=== PATIENT | female | born 1950 | race Caucasian/White ===

== ENCOUNTER 2019-09-09 12:27 | Inpatient (IN) | payer MEDICARE, MEDICAID, SELFPAY ==
[2019-09-09] VITALS (37 sets, daily range): BP systolic 80–162; BP diastolic 40–99; PULSE 113–154; RESP 17–34; TEMP 37.7–40.5; O2SAT 81–100; BMI 44.3
--- NOTE | 2019-09-09 | ECG_ITS ---
Measurements Intervals [place] Rate: 143 P: SC: 0 QRS: -19 QRSD: 82 T: 43 QT: 287 QTc: 443 Interpretive Statements ATRIAL FLUTTER/TACHYCARDIA WITH RAPID VENTRICULAR RESPONSE VOLTAGE CRITERIA FOR LVH BASELINE WANDER- V1-V2 ABNORMAL ECG Electronically Signed On 09-11-2019 7:07:42 CASINO FLOOR SUPERVISOR by Balaji Gomez D.O.
--- NOTE | ~2019-09-09 | XR_ITS ---
XR tibia fibula LT 2V 09/11/2019 16:02 Indication: Compound fracture. ORIF 06/28/2019 Procedure: 2 views left tibia/fibula Comparison: 11/03/2016 Findings: There is left total knee arthroplasty. Interval placement of a proximal tibial side plates medially and anteriorly transfixing a proximal tibial metadiaphyseal fracture, likely subacute. There are side plate and screws transfixing the left ankle as well. Osteopenia. No definite evidence for o steomyelitis. Mildly displaced oblique proximal fibular diaphyseal fracture. Impression: 1: Interval internal fixation of the proximal tibia with sideplate and screws. Comminuted subacute fr acture in anatomic alignment. 2: Mildly displaced oblique proximal fibular diaphyseal fracture. Possible nondisplaced fibular head fracture. Reviewed, dictated and finalized at location A. INING TECHNICIAN Impression: 1: Interval internal fixation of the proximal tibia with sideplate and screws. Comminuted subacute fracture in anatomic alignment. 2: Mildly displaced oblique proximal fibular diaphyseal fracture. Possible nond isplaced fibular head fracture.
--- NOTE | ~2019-09-09 | XR_ITS ---
EXAMINATION: XR chest 1V portable DATE: 09/10/2019 07:57 INDICATION: Pneumonia TECHNIQUE: frontal view of the chest was obtained. COMPARISON: Chest radiograph dated 09/09/2019 FINDINGS: Right internal jugular central venous catheter with distal tip at the superior cavoatrial junction. P ersistent airspace opacities in the left lower and bilateral upper lung zones. No pulmonary edema, pl eural effusion or pneumothorax. Cardiomegaly. Widening of the bilateral acromioclavicular joints whic h may be related to prior trauma or surgery. IMPRESSION: 1. Bilateral airspace opacities concerning for multifocal pneumonia. 2. Cardiomegaly. Reviewed, dictated and finalized at location A. ESSOR OF GEOGRAPHY
--- NOTE | ~2019-09-09 | XR_ITS ---
XR chest 1V portable DATE: 09/13/2019 05:53 INDICATION: Shortness of breath. Multifocal pneumonia. TECHNIQUE: Portable AP chest on 09/13/2019 at 0549 hours COMPARISON: 09/12/2019 portable AP chest at 0942 hours FINDINGS: Prominent patchy bilateral areas of consolidation throughout both lung zones, mildly increa sed since 09/12/2019, consistent with extensive bilateral pneumonia. Heart size appears normal. Aortic calcification. No pleural effusion is evident. No pneumothorax. Right internal jugular central venous catheter tip overlies superior cavoatrial junction. IMPRESSION: No significant change in extensive bilateral patchy consolidation since 09/12/2019 Reviewed, dictated and finalized at location A. GOODS INSPECTOR IMPRESSION: No significant change in extensive bilateral patchy consolidation s inez 09/12/2019
--- NOTE | ~2019-09-09 | XR_ITS ---
EXAMINATION: XR chest 1V portable DATE: 09/09/2019 14:05 INDICATION: Shortness of breath and fever TECHNIQUE: frontal view of the chest was obtained. COMPARISON: Chest radiograph dated 12/01/2016 FINDINGS: New regions of consolidation at the lateral left lower lung zone, medial right lung base and the bila teral suprahilar regions, more prominent on the right with more peripheral extension into the right u pper lobe concerning for multifocal pneumonia. No pleural effusion or pneumothorax. Cardiomegaly. IMPRESSION: 1. Bilateral airspace disease concerning for multifocal pneumonia. Reviewed, dictated and finalized at location A. RETE PLACEMENT EQUIPMENT OPERATOR
--- NOTE | ~2019-09-09 | XR_ITS ---
XR chest 1V portable 09/17/2019 05:41 Indication: Pneumonia. Dyspnea. Procedure: 2 view chest Comparison: Comparison to multiple prior studies sequentially, with oldest reviewed study dated 09/13. Findings: There is persistent diffuse bilateral airspace disease. Right IJ central line tip in the SV C. No pleural effusion or pneumothorax. No acute osseous abnormality. Impression: 1: No significant change to diffuse bilateral airspace disease which may reflect pneumonia or edema. Reviewed, dictated and finalized at location A. ERCIAL DRONE SOFTWARE DEVELOPER Impression: 1: No significant change to diffuse bilateral airspace disease which may reflec t pneumonia or edema.
--- NOTE | ~2019-09-09 | XR_ITS ---
EXAMINATION: XR chest 1V portable DATE: 09/14/2019 06:04 INDICATION: Multifocal pneumonia. TECHNIQUE: A single frontal view of the chest was obtained. COMPARISON: Chest single view 09/13/2019, CT abdomen and pelvis 10/31/2016 FINDINGS: There are patchy airspace opacities in all lung zones bilaterally. No pleural effusion or p neumothorax. The heart size is normal. A right internal jugular central venous catheter is seen with tip at the superior cavoatrial junction. IMPRESSION: 1. Diffuse lung disease with worsening on the right, consistent with pulmonary edema versus pneumonia . Reviewed, dictated and finalized at location A. PING TRACK SUPERVISOR IMPRESSION: 1. Diffuse lung disease with worsening on the right, consistent with pulmonary edema versus pneumonia.
--- NOTE | ~2019-09-09 | XR_ITS ---
EXAMINATION: XR chest 1V portable DATE: 09/11/2019 06:02 INDICATION: Pneumonia TECHNIQUE: frontal view of the chest was obtained. COMPARISON: Chest radiograph dated 09/10/2019 FINDINGS: Right internal jugular central venous catheter with distal tip at the superior cavoatrial junction. Persistent airspace consolidation in the bilateral upper and left lower lung zones and right hilar re gion. More subtle streaky and patchy airspace opacities in the left mid and right lower lung zones. N o pleural effusion or pneumothorax. Cardiomegaly. IMPRESSION: 1. Minimal change in bilateral airspace disease consistent with multifocal pneumonia. 2. Cardiomegaly. Reviewed, dictated and finalized at location A. CASE ASSEMBLER IMPRESSION: 1. Minimal change in bilateral airspace disease consistent with multifocal pneu monia. 2. Cardiomegaly.
--- NOTE | ~2019-09-09 | US_ITS ---
EXAMINATION: US venous doppler LE EXAM DATE: 09/12/2019 11:51 INDICATION: Leg edema. Shortness of breath. TECHNIQUE: Multiple grayscale, color flow and Doppler images of the lower extremity deep venous syste ms bilaterally were obtained and reviewed. Comparison is made to prior examination from 12/02/2016. FINDINGS: Right side: The right common femoral, femoral and profunda veins demonstrate normal color flow, respi ratory variation, augmentation and compressibility. Compressibility, color flow confirmed within the right popliteal, posterior tibial, peroneal, and greater saphenous veins. Left side: The left common femoral, femoral and profunda veins demonstrate normal color flow, respira tory variation, augmentation and compressibility. Compressibility, color flow confirmed within the l eft popliteal, posterior tibial, peroneal, and greater saphenous veins. IMPRESSION: 1. No lower extremity deep venous thrombosis bilaterally. Reviewed, dictated and finalized at location A. VERY TRUCK DRIVER HEAVY
--- NOTE | ~2019-09-09 | XR_ITS ---
EXAMINATION: XR chest 1V portable DATE: 09/15/2019 05:57 INDICATION: Multifocal pneumonia. TECHNIQUE: A single frontal view of the chest was obtained. COMPARISON: Chest single view 09/14/2019, CT abdomen and pelvis 10/31/2016 FINDINGS: There are patchy airspace opacities throughout the lungs bilaterally. No pleural effusion o r pneumothorax. The heart size is normal. A right internal jugular central venous catheter is seen wi th tip at the superior cavoatrial junction. IMPRESSION: 1. Stable diffuse lung disease, consistent with pulmonary edema versus pneumonia. 2. Cardiomegaly. Reviewed, dictated and finalized at location A. OMER SUCCESS INTERN IMPRESSION: 1. Stable diffuse lung disease, consistent with pulmonary edema versus pneumoni a. 2. Cardiomegaly.
--- NOTE | ~2019-09-09 | XR_ITS ---
EXAMINATION: XR chest 1V portable DATE: 09/12/2019 09:44 INDICATION: Shortness of breath TECHNIQUE: frontal view of the chest was obtained. COMPARISON: Chest radiograph dated 09/11/2019 FINDINGS: Interval increase in patchy airspace opacities now at the upper, middle and lower lung zones on both the left and right consistent with worsening multifocal pneumonia. No pneumothorax or definitive pleu ral effusion. Cardiomegaly. Right internal jugular central venous catheter with distal tip near the s uperior cavoatrial junction. IMPRESSION: 1. Increasing now relatively diffuse bilateral patchy lung disease consistent with worsening multifoc al pneumonia. Reviewed, dictated and finalized at location A. RITY ADMINISTRATOR IMPRESSION: 1. Increasing now relatively diffuse bilateral patchy lung disease consistent w ith worsening multifocal pneumonia.
--- NOTE | ~2019-09-09 | XR_ITS ---
EXAMINATION: XR chest port-a-cath/central INDICATION: Central line placement TECHNIQUE: Portable AP chest at 1527 hours COMPARISON: 1358 hours FINDINGS: A right internal jugular catheter has been inserted which ends with its tip in the proximal right atrium. Bilateral airspace opacities are unchanged. There is no pneumothorax or pleural effusi on. Stable cardiomegaly is noted. IMPRESSION: 1. Right internal jugular catheter insertion without pneumothorax. 2. Multifocal airspace opacities of the lungs, likely pneumonia. Reviewed, dictated and finalized at location A. E STREAM MANAGER
--- NOTE | ~2019-09-09 | XR_ITS ---
EXAMINATION: XR chest 1V portable INDICATION: Multifocal pneumonia TECHNIQUE: Portable AP chest at 0519 hours COMPARISON: 09/15/2019 FINDINGS: A right internal jugular central venous catheter ends with its tip at the superior cavoatri al junction. Patchy bilateral airspace opacities persist with slight improvement in the right lower l julissa zone. There is unchanged mild elevation of the right hemidiaphragm. No pleural effusion or pneumo thorax is identified. The cardiomediastinal silhouette is stable. IMPRESSION: 1. Diffuse lung disease with slight improvement in the right lower lung zone, consistent with pulmona ry edema versus pneumonia. Reviewed, dictated and finalized at location A. GER SHIFT IMPRESSION: 1. Diffuse lung disease with slight improvement in the right lower lung zone, c onsistent with pulmonary edema versus pneumonia.
--- NOTE | 2019-09-09 12:28 | ED.AMS ---
HPI - Altered Mental Status General Chief Complaint: Shortness of Breath/Dyspnea Stated Complaint: SOB, Fever, AMS Time Seen by Provider: 09/09/19 12:28 Source: patient, EMS and RN notes reviewed Mode of arrival: EMS Limitations: clinical condition History of Present Illness HPI narrative: Pt is a 68 y/o female presenting to the ED via EMS c/o respiratory distress. EMS report the pt started having a fever last night at her [facility] residence. EMS states the pt's temp was 101.9 F en route to the ED and notes the pt started experiencing SOB earlier today as well. Per EMS, the pt was satting 92 on 15L and is normally on 2L of home oxygen. EMS also reports the pt is experiencing cough and pain with cough. EMS state the pt is oriented x2 and are unsure of her baseline. Pt presents with steri-strips on her LLE in which she states she had a surgery in September of last year. HPI is limited due to pt's clinical condition. Most information provided by EMS. Onset (ago): unknown (Earlier today) Associated symptoms: cough (per EMS), fever (of 101.9 F (per EMS)) and other (Pain with cough (per EMS)) Treatments prior to arrival: oxygen Related Data Allergies Allergy/AdvReac Type Severity Reaction Status Date / Time Fish Containing Products Allergy Severe Dyspnea / Verified 10/31/16 16:24 SOB iodine Allergy Unknown Verified 10/31/16 13:50 Contrast Media AdvReac Intermediate Hives / Uncoded 10/31/16 16:33 Red Face Review of Systems Review of Systems: Narrative: ROS is limited due to pt's clinical condition. All systems reviewed & are unremarkable except as noted in HPI and below Constitutional: Constitutional: Reports fever(s) (of 101.9 F (per EMS)) Respiratory: Respiratory: Reports cough (Per EMS), Reports pain with cough (Per EMS) and Reports dyspnea PMFSH Past Medical History Medical History Anemia Ankle fracture, right Anxiety Asthma Depression Diverticulitis Epilepsy Gastroparesis GERD (gastroesophageal reflux disease) History of bipolar disorder History of home oxygen therapy 2L HLD (hyperlipidemia) HTN (hypertension) Meningoencephalitis Viral SANTI (obstructive sleep apnea) Seasonal allergies Shingles UTI (urinary tract infection) Surgical History Surgical History H/O: hysterectomy History of knee replacement History of tonsillectomy S/P appy Social History Social History Smoking status: Unknown if ever smoked Gender identity (if verbalized by the patient): Female Exam Const: General: alert, acute distress (Moderate) and ill appearing Nutritional Appearance: well nourished Other: Elderly HENMT: Mouth: Yes lip normal and Yes dry mucous membranes Eyes: Conjunctivae: conjunctivae normal Resp: Effort & Inspection: tachypneic Auscultation: wheezes (Diffuse) Cardio: Rate: tachycardic Rhythm: regular rhythm GI: Inspection: non-distended GI Palp: Yes Soft to palpation, Yes Tenderness to palpation present (GI) (Diffuse), No Guarding due to palpation present (GI) and No Rebound tenderness present Back/Spine/Pelvis: Other: Full ROM Skin: General skin exam: normal color Other: [id number]; Dry Neuro: General: moves all extremities Extrem: General: full ROM Psych: Mental Status: mental status grossly normal Course Consultations Consultation #1: Discussed case with Web Offset Press Feeder Dr. Sin. Accepted the pt for the ICU. Date: 09/09/19 Time: 15:43 Consultation #2: Discussed case with ALLERGY AND IMMUNOLOGY SPECIALIST Luh Sosa. Accepted the pt for admission. Date: 09/09/19 Time: 16:00 Vital Signs Vital signs: Vital Signs Temperature 40 C H 09/09/19 12:29 Pulse Rate 154 H 09/09/19 12:29 Respiratory Rate 32 H 09/09/19 12:29 Blood Pressure 111/99 H 09/09/19 12:29 Pulse Oximetry 81 L 09/09/19 12:29 Temperature 38.8 C H 09/09/19 15:57 Pulse Rate 117 H 09/09/19 16:3
--- NOTE | 2019-09-09 12:41 | ECG_ITS ---
Measurements Intervals [place] Rate: 152 P: 40 LA: 116 QRS: -20 QRSD: 89 T: 91 QT: 271 QTc: 432 Interpretive Statements SINUS TACHYCARDIA WITH SHORT LA INTERVAL LEFT VENTRICULAR HYPERTROPHY AND ST-T CHANGE MINIMAL Q WAVES- LATERAL LEADS BASELINE WANDER- I, II, AVR ABNORMAL ECG Electronically Signed On 09-09-2019 18:42:41 PULL OVER by Balaji Gomez D.O.
[2019-09-09] MEDS: SODIUM CHLORIDE 0.9% IV 1,000 ML 999 ML IV CONT ×4 (12:55→22:52)
--- NOTE | 2019-09-09 12:58 | PC.NURSE ---
SPOKE WITH CA ROWAN ABOUT PT TEMP OF 104, STATES THAT HE WANTS A STAT DOSE OF 1G OFIRMEV IVP.
[2019-09-09 12:59] LABS: Basophils Percent Auto 0.3 % (0.2-1.2); Hematocrit 31.2 % (37.0-47.0); Immature Granulocyte Percent A 0.9 % (0-0.5); Lymphocytes Absolute Auto 2.03 K/mm3 (0.9-3.2); Lymphocytes Percent Auto 18.8 % (18.3-44.2); Mean Corpuscular HGB Conc 32.1 g/dl (32-36); Mean Corpuscular Hemoglobin 26.3 pg (26-34); Mean Corpuscular Volume 82.1 fl (80-100); Mean Platelet Volume 10.4 fl (7.4-10.4); Monocytes Absolute Auto 1.6 K/mm3 (0.1-0.6); Monocytes Percent Auto 15.2 % (2.6-8.5); Neutrophils Percent Auto 64.8 % (45.5-73.1); Platelet Count Result 240 k/mm3 (150-375); Red Cell Distribution Width 15.9 % (11.5-14.5); White Blood Count 10.8 K/mm3 (4.5-10.0)
[2019-09-09 13:02] LABS: Alveolar/Arterial O2 Gradient 551.8 mmHg; Base Excess ABG -0.8 mEq/l (+/-2.0); Carboxyhemoglobin 0.3 % THb (0-2.0); Fractional Inspired Oxygen 100 %; HCO3 ABG 22.2 mEq/l (22.0-26.0); Methemoglobin ABG 0.3 %THb (0-1.5); Oxygen Content ABG 14.5 %vol (16.0-22.0); Oxygen Saturation ABG 98.8 % (95.0-100.0); Oxyhemoglobin 97.5 % THb (90.0-100.0); PCO2 ABG 30.8 mmHg (35.0-45.0); PO2 ABG 130.4 mmHg (80.0-100.0); Reduced Hemoglobin 1.9 %THb (0-5.0); Total Hemoglobin 10.4 g/dL (12.0-18.0); pH ABG 7.475 (7.350-7.450)
[2019-09-09 13:04] LABS: Device NON-REBREATHER MASK; Modified Allen's Test Pass; Site Drawn RIGHT RADIAL
[2019-09-09] MEDS: IPRATROPIUM BR 0.02% INH SOLN 0.5 MG/2.5 ML VIAL INHALATION ×2 (13:05→20:12)
[2019-09-09] MEDS: ALBUTEROL SULFATE NEB 2.5 MG/0.5 ML INH 5 MG INHALATION ×2 (13:05→20:13)
[2019-09-09 13:07] LABS: Lactic Acid Reflex 2.9 mmol/L (0.7-2.1)
[2019-09-09 13:09] LABS: INR 1.3; Prothrombin Time 15.8 Seconds (11.1-14.7)
[2019-09-09 13:10] LABS: Partial Thromboplastin Time 39.6 SECONDS (22.3-36.8)
[2019-09-09 13:12] LABS: Alanine Aminotransferase 28 U/L (4-35); Albumin Level 3.7 g/dL (3.5-5.1); Alkaline Phosphatase 95 U/L (38-126); Aspartate Amino Transferase 36 U/L (14-36); Bilirubin,Total 0.6 mg/dL (0.2-1.3); Blood Urea Nitrogen 15 mg/dL (7-17); Calcium 8.3 mg/dL (8.4-10.2); Carbon Dioxide 23 mmol/L (22-30); Chloride 81 mmol/L (98-107); Estimated CRCL calculation 52 ml/min; Estimated Glomerular Filt Rate 50; Glucose 152 mg/dL (65-105); Potassium 4.2 mmol/L (3.4-5.0); Sodium 122 mmol/L (137-145)
--- NOTE | 2019-09-09 13:24 | PC.NURSE ---
SPOKE WITH CA ROWAN ABOUT POSSIBLE MANDEL TO ASSESS I'S AND O'S FOR SEPSIS GUIDELINES. CA STATES THAT HE DOES NOT WANT A MANDEL AT THIS TIME.
--- NOTE | 2019-09-09 13:34 | PC.NURSE ---
PT FOUND THAT RESPIRATORY LEFT PT ON 2L O2 AFTER NEB TREATMENT. PT SATURATION FOUND TO BE 83%. CA VALLE VERBAL ORDER AT THIS TIME TO PLACE PT BACK ON NOPN-REBREATHER.
[2019-09-09 13:42] LABS: Lipase < 10 U/L (23-300)
[2019-09-09 13:46] LABS: CRP 37.9 mg/dL (<1.0)
[2019-09-09 14:01] LABS: Add Urine Microscopic? YES; Appearance Urine Cloudy (Clear); Bacteria Urine Trace /hpf; Bilirubin Urine Negative (Negative); Blood Urine Negative (Negative); Color Urine Yellow (Yellow); Glucose Urine UA Negative (Negative); Ketones Urine Negative (Negative); Leukocyte Esterase Ur Negative LEU/UL (Negative); Mucus Urine Few /lpf; Nitrate Urine Negative (Negative); Protein Urine Negative (Negative); RBC Urine 0-2 /hpf (0-2); Specific Grav Ur 1.015 (1.001-1.035); Squamous Epithelial Cell Urine Few /hpf (Few); Urobilinogen Urine Negative mg/dL (<2.0); WBC Urine 0-3 /hpf
--- NOTE | 2019-09-09 14:30 | PC.NURSE ---
FLUIDS FINISHED, PT BP NOTED TO BE 80/50. CA ROWAN INFORMED, VERBAL ORDER TO START A 3RD LITER BOLUS OF NS STAT AND PREPARE PT FOR CENTRAL LINE. PT MOVED FROM ROOM 5 TO ROOM 7. CONSENT OBTAINED, PT ALERT AND ORIENTED AT THIS TIME.
--- NOTE | 2019-09-09 14:37 | PC.NURSE ---
ERP AT BEDSIDE TO INSERT CENTRAL LINE IN PT AT THIS TIME.
--- NOTE | 2019-09-09 15:24 | PC.NURSE ---
XRAY IN ROOM FOR CONFIRMATION SCAN OF CENTRAL LINE PLACEMENT BY CA ROWAN. PT TOLERATED PROCEDURE WELL.
[2019-09-09 15:53] LABS: Reflex Lactic Acid Yes or No Add Lactic
[2019-09-09 16:25] LABS: Lactic Acid 2.3 mmol/L (0.7-2.1)
[2019-09-09] MEDS: NOREPINEPHRINE 8 MG/D5W 250 ML 8 MG/250 ML BAG 9.4 MG IV CONT (16:36)
[2019-09-09] MEDS: METOPROLOL TARTRATE INJ 5 MG/5 ML VIAL IV PUSH (18:14)
[2019-09-09] MEDS: LACTATED RINGERS 1,000 ML 125 ML IV CONT (18:15)
--- NOTE | 2019-09-09 18:21 | PC.NURSE ---
Patient arrived from ER on 5 mcg Levophed at 1740, began to titrate, as bp was 140/96. At 1816 placed Levophed on hold, as blood pressure 148/100. Will continue to monitor closely.
--- NOTE | 2019-09-09 18:41 | PM.IMHP ---
H&P: HPI History of Present Illness Chief complaint: Septic Shock Narrative: Celestina Ewing is a 68 year old female Who has been recovering at [facility] with history of a right ankle fracture and a left tibia fracture repair. Patient has been there recovering since she had a fall. Initially the patient told me she has COPD and then retracted. The patient stated that she has been coughing all weekend that she had a fever all week. She said she has only been given Tylenol. Patient's fever went up to 104. Her fever was 101.9 and route to the emergency room. Patient started experiencing shortness of breath earlier today. Patient typically wears oxygen at 2 L per nasal cannula but had a bone but up the 15 L today and was only satting 92%. The patient does have sleep apnea but wears oxygen instead she cannot tolerate a CPAP machine. Patient has Steri-Strips the left lower extremity from her surgery. Patient's respirations have been in the 30s and heart rate in the 140s and 150s. On patient's arterial blood gases are pH was 7.475 and pCO2 was 30.8. PO2 was 130.4. Patient was started on a non-rebreather. She was given nebulizer treatments in the emergency room. She she was started on Rocephin a Zithromax. A central line was placed in the emergency room. X-ray was read as right internal jugular catheter insertion without pneumothorax. Multi focal airspace a paced sees the lungs likely pneumonia. Her white count was noted to be 10.8. Her sodium level was 122 Today and has been in in the lower 130s and 129 in the past. patient was given the normal saline bolus in the emergency room for sepsis and then changed to LR. Patient's blood pressure was then elevated when she came to the ICU and her Levophed drip had been stopped. Patient had to be given metoprolol IV for elevated heart rate and blood pressure. Her blood pressure dropped down momentarily to 120s. Patient is now afebrile and her heart rate up to 140s. Patient is so short of breath that she cannot talk in full sentences. I ordered a BiPAP and some Ativan for her because she is not able to tolerate a CPAP machine normally. I will repeat her ABGs in 1 hour to determine if she needs to be intubated. Patient is using accessory muscles to breathe at this time. We will determine if she needs to be intubated approximately 1 hour. Date of service is 09/09/2019 to the intensive care unit. Review of Systems Review of Systems: Narrative: It was very difficult to obtain information from the patient she had a non-rebreather mask on and she was having difficulty talking in full sentences due to her shortness of breath. Patient was getting somewhat confused as well. She has had fever and chills and cough. She tells me she has had a fever for 1 week. She tells me she is at the residential for rehab due to a right ankle fracture and a left tibia fracture that was repaired. All systems reviewed & are unremarkable except as noted in HPI and below Constitutional: Constitutional: Reports as per HPI and Reports no additional constitutional complaints Eyes: Eyes: Reports as per HPI and Reports no additional eye complaints ENT: Reports system reviewed and no additional complaints, except as documented and Reports Normal hearing present Cardiovascular: Cardiovascular: Reports no additional cardiovascular complaints Respiratory: Respiratory: Reports no additional respiratory complaints and Reports no additional respiratory complaints Comments: Short of breath and wheezing. Gastrointestinal: Gastrointestinal: Reports as per HPI and Reports no additional gastrointestinal complaints Musculoskeletal: Musculoskeletal: Reports no additional musculoskeletal complaints Integumentary/Breasts: Skin/Breast: Reports system reviewed and no additional complaints, except as docu and Reports as per HPI Neurologic: Reports system reviewed and no additional complaints, except as documented, Reports as per H
--- NOTE | 2019-09-09 19:33 | ADMGEN ---
This patient, Celestina Ewing, was admitted to Intensive Care Unit-6. Patient/family oriented to hospital policies and general routines including ID bracelet, bed and alarms, visiting hours, pain management, procedures, bathroom and other care routines, personal items, smoking policy, room service/diet, and visiting hours. Valuables list has been completed. Information on how to activate the Rapid Response Team has been discussed. Patient/Family are encouraged to report perceived risks to care and to ask questions if they do not understand what they are told or what they should do.
[2019-09-09] MEDS: LORAZEPAM INJ 2 MG/ML VIAL 0.5 MG IV PUSH (19:37)
[2019-09-09] MEDS: LABETALOL HCL INJ 100 MG/20 ML VIAL IV PUSH (19:38)
--- NOTE | 2019-09-09 19:59 | PCDIET ---
Call Dr. Sin [phone] to advise elevated heart rate 150, received order for Metoprolol 5 mg iv push, now. Will continue to monitor closely.
[2019-09-09 20:16] LABS: Blood Urea Nitrogen 13 mg/dL (7-17); Carbon Dioxide 21 mmol/L (22-30); Chloride 88 mmol/L (98-107); Estimated CRCL calculation 70 ml/min; Estimated Glomerular Filt Rate > 60; Glucose 120 mg/dL (65-105); Potassium 3.8 mmol/L (3.4-5.0); Sodium 122 mmol/L (137-145)
[2019-09-09 20:39] LABS: Lactic Acid Reflex 3.3 mmol/L (0.7-2.1)
[2019-09-09 21:04] LABS: Base Excess ABG -2.6 mEq/l (+/-2.0); Fractional Inspired Oxygen 50 %; HCO3 ABG 20.7 mEq/l (22.0-26.0); Oxygen Saturation ABG 94.6 % (95.0-100.0); Oxyhemoglobin 92.6 % THb (90.0-100.0); PCO2 ABG 30.6 mmHg (35.0-45.0); PO2 ABG 68.1 mmHg (80.0-100.0); PO2 FiO2 Ratio Arterial Blood 1.36 %; Total Hemoglobin 9.9 g/dL (12.0-18.0); pH ABG 7.448 (7.350-7.450)
[2019-09-09 21:05] LABS: Modified Allen's Test Pass; Site Drawn RIGHT RADIAL
[2019-09-09 21:06] LABS: Device NON-INVASIVE VENT; Non-Invasive Expiratory Pressure 8 CMH2O; Non-Invasive Inspiratory Pressure 14 CMH2O; Non-Invasive Vent Rate 12 /MIN
[2019-09-09] MEDS: IBUPROFEN IV 400 MG in SODIUM CHLORIDE 0.9% IV 100 ML 200 MG IVPB (21:21)
[2019-09-09] MEDS: DIGOXIN INJ 250 MCG/ML 2 ML AMP (*BKC) 125 MCG IV PUSH (21:53)
[2019-09-09] MEDS: FAMCICLOVIR 250 MG TABLET PO (22:56)
[2019-09-09] MEDS: GABAPENTIN 400 MG CAPSULE 800 MG PO (22:57)
[2019-09-09] MEDS: PRIMIDONE 50 MG TABLET PO (22:58)
[2019-09-09] MEDS: ATORVASTATIN 10 MG TABLET PO (22:59)
[2019-09-09] MEDS: PANTOPRAZOLE 40 MG TABLET PO (22:59)
[2019-09-09] MEDS: methylPREDNISolone SOD SUCC 125 MG VIAL 80 MG IV PUSH (23:00)
[2019-09-09] MEDS: METOPROLOL TARTRATE 25 MG TABLET PO (23:16)
[2019-09-10] VITALS (30 sets, daily range): BP systolic 109–164; BP diastolic 54–74; PULSE 87–156; RESP 14–27; TEMP 36.2–37.7; O2SAT 92–100
[2019-09-10] MEDS: ALBUTEROL SULFATE NEB 2.5 MG/0.5 ML INH 5 MG INHALATION ×4 (01:20→20:48)
[2019-09-10] MEDS: IPRATROPIUM BR 0.02% INH SOLN 0.5 MG/2.5 ML VIAL INHALATION ×4 (01:21→20:48)
[2019-09-10 01:46] LABS: Lactic Acid Reflex 3.2 mmol/L (0.7-2.1)
[2019-09-10] MEDS: SODIUM CHLORIDE 0.9% IV 500 ML 999 ML IV CONT ×2 (02:17→22:39)
[2019-09-10] MEDS: LACTATED RINGERS 1,000 ML 125 ML IV CONT (04:29)
[2019-09-10 04:30] LABS: Reflex Lactic Acid Yes or No Add Lactic
[2019-09-10 04:56] LABS: Basophils Percent Auto 0.3 % (0.2-1.2); Hematocrit 25.2 % (37.0-47.0); Hemoglobin 7.9 g/dL (12.0-15.0); Immature Granulocyte Absolute 0.07 K/mm3 (0.00-0.031); Immature Granulocyte Percent A 0.7 % (0-0.5); Immature Platelet Fraction Pct 4.2 % (0.9-11.2); Lymphocytes Absolute Auto 0.99 K/mm3 (0.9-3.2); Lymphocytes Percent Auto 10.5 % (18.3-44.2); Mean Corpuscular HGB Conc 31.3 g/dl (32-36); Mean Corpuscular Hemoglobin 26.4 pg (26-34); Mean Corpuscular Volume 84.3 fl (80-100); Mean Platelet Volume 9.9 fl (7.4-10.4); Monocytes Absolute Auto 1.3 K/mm3 (0.1-0.6); Monocytes Percent Auto 13.6 % (2.6-8.5); Neutrophils Percent Auto 74.9 % (45.5-73.1); Platelet Count Result 129 k/mm3 (150-375); Red Blood Count 2.99 M/mm3 (4.2-5.4); Red Cell Distribution Width 15.8 % (11.5-14.5); White Blood Count 9.4 K/mm3 (4.5-10.0)
[2019-09-10 05:13] LABS: Lactic Acid 3.5 mmol/L (0.7-2.1)
[2019-09-10 05:16] LABS: Alanine Aminotransferase 23 U/L (4-35); Albumin Level 2.7 g/dL (3.5-5.1); Alkaline Phosphatase 55 U/L (38-126); Aspartate Amino Transferase 28 U/L (14-36); Bilirubin,Total 0.3 mg/dL (0.2-1.3); Blood Urea Nitrogen 14 mg/dL (7-17); Calcium 6.9 mg/dL (8.4-10.2); Carbon Dioxide 19 mmol/L (22-30); Chloride 91 mmol/L (98-107); Estimated CRCL calculation 70 ml/min; Estimated Glomerular Filt Rate > 60; Glucose 147 mg/dL (65-105); Potassium 4.4 mmol/L (3.4-5.0); Sodium 123 mmol/L (137-145)
[2019-09-10] MEDS: methylPREDNISolone SOD SUCC 125 MG VIAL 80 MG IV PUSH (06:03)
[2019-09-10] MEDS: METOPROLOL TARTRATE 25 MG TABLET PO ×2 (06:04→21:38)
[2019-09-10 06:35] LABS: Thyroid Stimulating Hormone Reflex 0.756 uIU/mL (0.465-4.68)
[2019-09-10] MEDS: MAGNESIUM SULF 2 GM/WATER 50ML 2 GM/50 ML BAG IVPB ×2 (07:20→08:29)
--- NOTE | 2019-09-10 07:43 | PM.IMPN ---
Progress Note: A&P Assessment and Plan (1) Septic shock: Code(s): A41.9 - Sepsis, unspecified organism; R65.21 - Severe sepsis with septic shock Status: Acute Assessment and Plan: Criteria met on admission. Result of pneumonia. Blood pressure reviewed on 09/10/2019 and stable. Telemetry reviewed on 09/10/2019 with sinus rhythm. Blood cultures and MRSA culture pending. Will continue vancomycin, ceftriaxone, azithromycin. Continue IV fluids. Will continue to monitor closely. (2) Acute respiratory failure: Qualifiers: Respiratory failure complication: hypoxia Qualified Code(s): J96.01 - Acute respiratory failure with hypoxia Code(s): J96.00 - Acute respiratory failure, unspecified whether with hypoxia or hypercapnia Status: Acute Assessment and Plan: Result of pneumonia. Remains on BiPAP. Continue treatment of pneumonia. Continue nebulizer treatments and IV steroids. Will monitor closely. 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 Continue IV antibiotics as noted above. BiPAP as noted above. (4) Hypomagnesemia: Code(s): E83.42 - Hypomagnesemia Status: Acute Assessment and Plan: Magnesium 1.0 this morning with IV replacement already ordered. Will continue to monitor and replace as needed. (5) HTN (hypertension): Qualifiers: Hypertension type: essential hypertension Qualified Code(s): I10 - Essential (primary) hypertension Code(s): I10 - Essential (primary) hypertension Status: Chronic Assessment and Plan: Blood pressure reviewed on 09/10/2019 and currently stable. Hold all home medications. Will monitor. (6) Anemia: Qualifiers: Anemia type: unspecified type Qualified Code(s): D64.9 - Anemia, unspecified Code(s): D64.9 - Anemia, unspecified Status: Chronic Assessment and Plan: Hemoglobin did drop to 7.9 but may be related to dilution effect. No active sign of bleeding. Will monitor. (7) Chronic hyponatremia: Code(s): E87.1 - Hypo-osmolality and hyponatremia Status: Acute Assessment and Plan: Sodium low at 123 but stable. Will follow. (8) HLD (hyperlipidemia): Qualifiers: Hyperlipidemia type: unspecified Qualified Code(s): E78.5 - Hyperlipidemia, unspecified Code(s): E78.5 - Hyperlipidemia, unspecified Status: Chronic Assessment and Plan: Atorvastatin on hold. (9) Anxiety: Code(s): F41.9 - Anxiety disorder, unspecified Status: Chronic Assessment and Plan: Remains on BuSpar. IV lorazepam available as needed. (10) DVT prophylaxis: Code(s): Z29.9 - Encounter for prophylactic measures, unspecified Status: Acute Assessment and Plan: Lovenox. Subjective Date/time seen: 09/10/19 07:43 Interval history: Date of Service: 09/10/2019. Admitted with septic shock, pneumonia. Recent left tibia/left ankle fractures with repair at [place]. Patient on continuous BiPAP currently but awake and can answer simple yes/no questions. No shortness of breath. Does have chest pain/congestion. Also with abdominal pain, nausea. Slight headache. Review of Systems Review of Systems: Narrative: Limited due to continuous BiPAP. Constitutional: Constitutional: Reports fever(s) (up to 104.6 last night) Cardiovascular: Cardiovascular: Reports chest pain Respiratory: Respiratory: Reports chest congestion and Denies dyspnea Gastrointestinal: Gastrointestinal: Reports abdominal pain Genitourinary: Comments: catheter in place Musculoskeletal: Comments: recent fracture left tibia/left ankle Neurologic: Reports headache(s) (slight) Exam Narrative: Exam Narrative: Awake and alert Const: General: no acute distress H
[2019-09-10] MEDS: PRIMIDONE 50 MG TABLET PO ×2 (08:27→18:07)
[2019-09-10] MEDS: OLMESARTAN MEDOXOMIL 20 MG TABLET 40 MG PO (08:28)
[2019-09-10] MEDS: VITAMIN E 400 UNIT CAPSULE 800 UNIT PO (08:29)
[2019-09-10] MEDS: FAMCICLOVIR 250 MG TABLET PO ×2 (08:29→19:54)
--- NOTE | 2019-09-10 08:29 | WPDCNINT ---
Assessment and Plan Assessment and plan (1) Septic shock: Code(s): A41.9 - Sepsis, unspecified organism; R65.21 - Severe sepsis with septic shock Status: Acute Assessment and Plan: patient presented with fevers, cough, hypotensive, chest x-ray showed pneumonia - likely source - lungs - patient was hypotensive upon arrival to the ICU, given adequate IV fluids, was started on Levophed briefly which currently is off - blood pressures are stable at this time, urine output has been adequate - blood cultures have been obtained and results are pending - continue vancomycin, ceftriaxone and azithromycin for pneumonia (2) Acute respiratory failure: Qualifiers: Respiratory failure complication: hypoxia Qualified Code(s): J96.01 - Acute respiratory failure with hypoxia Code(s): J96.00 - Acute respiratory failure, unspecified whether with hypoxia or hypercapnia Status: Acute Assessment and Plan: acute respiratory failure likely related to pneumonia, shortness of breath with cough - obtain sputum cultures - continue antibiotics as above - continue BiPAP, settings were decreased to 12/8, 50% FiO2 - chest x-ray and ABGs reviewed (3) HCAP (healthcare-associated pneumonia): Code(s): J18.9 - Pneumonia, unspecified organism Status: Acute Assessment and Plan: antibiotics as above for pneumonia, sputum culture has been ordered (4) Hypomagnesemia: Code(s): E83.42 - Hypomagnesemia Status: Acute Assessment and Plan: will aggressively replace magnesium (5) HTN (hypertension): Qualifiers: Hypertension type: essential hypertension Qualified Code(s): I10 - Essential (primary) hypertension Code(s): I10 - Essential (primary) hypertension Status: Chronic Assessment and Plan: patient with history of essential hypertension on multiple home medications which currently are on hold since patient was in septic shock requiring Levophed briefly. - if blood pressures continue to rise will add IV medications (6) Anxiety: Code(s): F41.9 - Anxiety disorder, unspecified Status: Chronic Assessment and Plan: on lorazepam p.r.n. anxiety - continue BuSpar (7) History of seizure: Code(s): Z87.898 - Personal history of other specified conditions Status: Acute Assessment and Plan: continue primidone (8) DVT prophylaxis: Code(s): Z29.9 - Encounter for prophylactic measures, unspecified Status: Acute Assessment and Plan: enoxaparin SQ Additional Plan discussed with patient updated her with her condition and plan of care. I did tell her that she is on antibiotics, she that she is off the Levophed patient is a blood pressure support medications. Also updated her with the lab and radiology reports. Code status: Full code Critical care time spent: 39 minutes Due to a high probability of clinically significant, life threatening deterioration, the patient required my highest level of preparedness to intervene emergently and I personally spent this critical care time directly and personally managing the patient. This critical care time included obtaining a history; examining the patient; pulse oximetry; ordering and review of studies; arranging urgent treatment with development of a management plan; evaluation of patient's response to treatment; frequent reassessment; and discussions with other providers. It was exclusive of separately billable procedures and treating other patients and teaching time. Please see Assessment and Plan section and the rest of the note for further information on patient assessment and treatment [employer] Screen Cutter Consult Note Consult date: 09/10/19 Time Seen: 06:51 Reason for consult: Pneumonia, acute respiratory failure, fevers, septic shock, hypomagnesemia HPI: Celestina Ewing is a 68 year old female with significant past medical history of recent OR
[2019-09-10 08:30] LABS: Alveolar/Arterial O2 Gradient 202.9 mmHg; Base Excess ABG -3.9 mEq/l (+/-2.0); Fractional Inspired Oxygen 50 %; Oxygen Content ABG 13.4 %vol (16.0-22.0); Oxyhemoglobin 96.6 % THb (90.0-100.0); PCO2 ABG 37.5 mmHg (35.0-45.0); PO2 ABG 111.4 mmHg (80.0-100.0); PO2 FiO2 Ratio Arterial Blood 2.23 %; Total Hemoglobin 9.7 g/dL (12.0-18.0); pH ABG 7.367 (7.350-7.450)
[2019-09-10] MEDS: ENOXAPARIN 40 MG/0.4 ML SYRINGE SUB-Q (08:30)
[2019-09-10 08:31] LABS: Modified Allen's Test Pass; Site Drawn RIGHT RADIAL
[2019-09-10] MEDS: LIDOCAINE 5% PATCH 1 PATCH TOPICAL (08:31)
[2019-09-10] MEDS: FLUTICASONE PROPIONATE 0.05% NA SPR 16 GM BTL (*BKC) 2 SPRAY NASAL (08:31)
[2019-09-10 08:32] LABS: Device NON-INVASIVE VENT; Non-Invasive Expiratory Pressure 8 CMH2O; Non-Invasive Inspiratory Pressure 12 CMH2O
[2019-09-10 08:45] LABS: Non-Invasive Vent Rate 12 /MIN
[2019-09-10 10:13] LABS: Lactic Acid Reflex 2.1 mmol/L (0.7-2.1)
[2019-09-10] MEDS: LACTATED RINGERS 1,000 ML 75 ML IV CONT (18:07)
[2019-09-10] MEDS: PANTOPRAZOLE 40 MG TABLET PO (19:54)
[2019-09-10] MEDS: hydrALAZINE HCL 50 MG TABLET PO (21:38)
--- NOTE | 2019-09-10 21:57 | ECG_ITS ---
Measurements Intervals [place] Rate: 153 P: NH: 0 QRS: -15 QRSD: 90 T: 78 QT: 281 QTc: 449 Interpretive Statements SUPRAVENTRICULAR TACHYCARDIA, CONSIDER ATRIAL FLUTTER DELAYED PRECORDIAL R/S TRANSITION LEFT VENTRICULAR HYPERTROPHY AND ST-T CHANGE ABNORMAL ECG Electronically Signed On 09-11-2019 8:16:05 ADMISSIONS SUPERVISOR by Balaji Gomez D.O.
--- NOTE | 2019-09-10 22:30 | PC.NURSE ---
Spoke with Dr. Sin regarding heart rate on EKG. Give 500 NS bolus. May start amio drip per protocol if heart rate does not improve.
--- NOTE | 2019-09-10 22:33 | PC.NURSE ---
Patient refuses bipap at night. Dr. Sin made aware.
[2019-09-10] MEDS: LORAZEPAM INJ 2 MG/ML VIAL 0.5 MG IV PUSH (23:50)
[2019-09-11] VITALS (26 sets, daily range): BP systolic 132–162; BP diastolic 54–89; PULSE 95–121; RESP 14–26; TEMP 36.7–37.6; O2SAT 90–100
--- NOTE | 2019-09-11 | ECHO_ITS ---
Patient Info Name: Celestina Ewing Age: 68 years : 1950 Gender: Female Ht: 62 in Wt: 251 lbs BSA: 2.30 m2 HR: 109 bpm BP: 153 / 73 mmHg Heart Rhythm: Sinus Rhythm, Tachycardia Technical Quality: Good Exam Date: 09/11/2019 10:22 AM Exam Location: [facility] Pulmonary Patient Status: Inpatient Admit Date: 09/09/2019 Staff Ordering Physician: Lanie Rivero MD Soapstoner: Raúl Cabrera, RHODA, RT Attending Provider: Lanie Rivero MD Exam Type: CA echo doppler color flow Study Info Complete two-dimensional, color flow and Doppler transthoracic echocardiogram is performed. Summary 1. Left ventricular systolic function is hyperdynamic, estimated at 65-70%. 2. There is mild aortic valve sclerosis. 3. The mitral valve has normal leaflets and calcified annulus. 4. There is trace mitral valve regurgitation. 5. No lesions that are suspicious for infectious vegetation. Left Ventricle Left ventricular chamber dimension is normal. Left ventricular systolic function is hyperdynamic, estimated at 65-70%. The left ventricular diastolic function is grade I diastolic dysfunction. Right Ventricle Right ventricular chamber dimension is normal. Left Atria Left atrial chamber dimension is mildly enlarged. Right Atria Right atrial chamber dimension is normal. Aortic Valve The aortic valve is trileaflet. There is mild aortic valve sclerosis. There is no aortic valve regurgitation. Pulmonic Valve The pulmonic valve is not well visualized. Mitral Valve The mitral valve has normal leaflets and calcified annulus. There is trace mitral valve regurgitation. Tricuspid Valve The tricuspid valve leaflets are normal. Pericardium/Pleural The pericardium appears normal. Aorta The aortic root size at the sinus of Valsalva is normal. Left Ventricular Outflow Tract Name Value Normal LVOT 2D LVOT Diameter 2.0 cm LVOT Doppler LVOT Peak Gradient 8 mmHg LVOT Mean Gradient 5 mmHg LVOT VTI 29 cm LVOT VTI/AV VTI Ratio 0.8 LVOT Stroke Volume 91 ml LVOT CO 9.7 l/min LVOT CI 4.2 l/min/m2 Mitral Valve Name Value Normal MV Doppler MV Peak Gradient 19 mmHg MV Mean Gradient 10 mmHg MV Decel Mcdonough 751 cm/s2 MV PHT 56 ms MV Area (PHT) 4.0 cm2 4.0-5.0 MV Area (Cont Eq VTI) 2.2 cm2 MV Diastolic Function MV E Peak Velocity 144 cm/s MV A Peak Velocity 178 c
[2019-09-11] MEDS: IPRATROPIUM BR 0.02% INH SOLN 0.5 MG/2.5 ML VIAL INHALATION ×4 (01:43→21:00)
[2019-09-11] MEDS: ALBUTEROL SULFATE NEB 2.5 MG/0.5 ML INH 5 MG INHALATION ×4 (01:43→21:00)
[2019-09-11 04:20] LABS: Basophils Absolute Auto 0.1 K/mm3 (0.0-0.1); Basophils Percent Auto 0.6 % (0.2-1.2); Eosinophils Percent Auto 0.1 % (0-4.4); Hematocrit 24.8 % (37.0-47.0); Hemoglobin 7.9 g/dL (12.0-15.0); Immature Granulocyte Absolute 0.36 K/mm3 (0.00-0.031); Immature Granulocyte Percent A 2.5 % (0-0.5); Lymphocytes Absolute Auto 1.28 K/mm3 (0.9-3.2); Lymphocytes Percent Auto 8.9 % (18.3-44.2); Mean Corpuscular HGB Conc 31.9 g/dl (32-36); Mean Corpuscular Hemoglobin 26.4 pg (26-34); Mean Corpuscular Volume 82.9 fl (80-100); Mean Platelet Volume 10.5 fl (7.4-10.4); Monocytes Percent Auto 13.6 % (2.6-8.5); Neutrophils Absolute Auto 10.7 K/mm3 (1.3-6.7); Neutrophils Percent Auto 74.3 % (45.5-73.1); Platelet Count Result 168 k/mm3 (150-375); Red Blood Count 2.99 M/mm3 (4.2-5.4); Red Cell Distribution Width 15.7 % (11.5-14.5); White Blood Count 14.3 K/mm3 (4.5-10.0)
[2019-09-11 04:40] LABS: Blood Urea Nitrogen 13 mg/dL (7-17); Calcium 7.4 mg/dL (8.4-10.2); Carbon Dioxide 26 mmol/L (22-30); Chloride 92 mmol/L (98-107); Estimated CRCL calculation 94 ml/min; Estimated Glomerular Filt Rate > 60; Glucose 127 mg/dL (65-105); Magnesium 2.3 mg/dL (1.6-2.3); Phosphorus 2.1 mg/dL (2.5-4.5); Potassium 3.7 mmol/L (3.4-5.0); Sodium 127 mmol/L (137-145)
--- NOTE | 2019-09-11 08:17 | PM.IMPN ---
Progress Note: A&P Assessment and Plan (1) Septic shock: Code(s): A41.9 - Sepsis, unspecified organism; R65.21 - Severe sepsis with septic shock Status: Acute Assessment and Plan: Criteria met on admission. Result of pneumonia. Was only on Levophed for short period of time on admission but discontinued with elevation of blood pressure. Blood pressure reviewed on 09/11/2019 with mild elevation. Telemetry reviewed on 09/11/2019 with sinus tachycardia with heart rate low 100s. EKG done last evening with heart rate 150s. Most likely rebound from clonidine being held on admission. Blood cultures now positive for MRSA. MRSA nasal culture still pending. Discussed with kitchen food server. Will check echocardiogram. Will have ID see patient. Repeat blood cultures. Continue IV vancomycin, ceftriaxone and azithromycin. Continue IV fluids. Will transfer to medical floor with telemetry. (2) Acute respiratory failure: Qualifiers: Respiratory failure complication: hypoxia Qualified Code(s): J96.01 - Acute respiratory failure with hypoxia Code(s): J96.00 - Acute respiratory failure, unspecified whether with hypoxia or hypercapnia Status: Acute Assessment and Plan: Result of pneumonia. No longer on BiPAP. Now on oxygen by nasal cannula L. Continue IV antibiotics. Continue nebulizer treatments and IV steroids. Will continue to monitor. (3) HCAP (healthcare-associated pneumonia): Code(s): J18.9 - Pneumonia, unspecified organism Status: Acute Assessment and Plan: Chest x-ray today reviewed and still with significant bilateral airspace disease. Continue IV antibiotics as noted above. Now with MRSA in blood cultures as noted. (4) HTN (hypertension): Qualifiers: Hypertension type: essential hypertension Qualified Code(s): I10 - Essential (primary) hypertension Code(s): I10 - Essential (primary) hypertension Status: Chronic Assessment and Plan: Blood pressure reviewed on 09/11/2019 and now with elevation. Metoprolol, hydralazine and clonidine have now all then restarted. Olmesartan and amlodipine still on hold. Will continue to monitor. Adjust treatment as needed. (5) Hypomagnesemia: Code(s): E83.42 - Hypomagnesemia Status: Acute Assessment and Plan: Magnesium 2.3 today afer replacement yesterday. Will continue to monitor and replace as needed. (6) Anemia: Qualifiers: Anemia type: unspecified type Qualified Code(s): D64.9 - Anemia, unspecified Code(s): D64.9 - Anemia, unspecified Status: Chronic Assessment and Plan: Hemoglobin did drop to 7.9 yesterday from admission but may be related to dilution effect. Hemoglobin unchanged today at 7.9 again. No active sign of bleeding. Will monitor. (7) Chronic hyponatremia: Code(s): E87.1 - Hypo-osmolality and hyponatremia Status: Acute Assessment and Plan: Sodium still low but improved to 127 today. Will continue to follow. (8) HLD (hyperlipidemia): Qualifiers: Hyperlipidemia type: unspecified Qualified Code(s): E78.5 - Hyperlipidemia, unspecified Code(s): E78.5 - Hyperlipidemia, unspecified Status: Chronic Assessment and Plan: Atorvastatin on hold. (9) Anxiety: Code(s): F41.9 - Anxiety disorder, unspecified Status: Chronic Assessment and Plan: Not on buspirone at home. Had been started on admission but discontinued yesterday. Patient states she does not wish to have buspirone as she does not need the medication. Does have IV lorazepam available as needed. (10) DVT prophylaxis: Code(s): Z29.9 - Encounter for prophylactic measures, unspecified Status: Acute Assessment and Plan: Lovenox. Time Spent With Patient Time with patient: 15 - 25 minutes Subjective Date/time seen: 09/11/19 08:17 Interval history: Date of Service: 09/11/2019. Adm
[2019-09-11] MEDS: hydrALAZINE HCL 50 MG TABLET PO ×3 (08:52→17:09)
[2019-09-11] MEDS: METOPROLOL TARTRATE 25 MG TABLET PO ×2 (08:52→20:22)
[2019-09-11] MEDS: CLONIDINE HCL 0.2 MG TABLET PO ×2 (08:53→20:23)
[2019-09-11] MEDS: LIDOCAINE 5% PATCH 1 PATCH TOPICAL (08:53)
[2019-09-11] MEDS: FLUTICASONE PROPIONATE 0.05% NA SPR 16 GM BTL (*BKC) 2 SPRAY NASAL (08:54)
[2019-09-11] MEDS: ENOXAPARIN 40 MG/0.4 ML SYRINGE SUB-Q (08:55)
[2019-09-11] MEDS: FAMCICLOVIR 250 MG TABLET PO ×2 (08:55→20:23)
[2019-09-11] MEDS: PRIMIDONE 50 MG TABLET PO ×2 (08:56→17:08)
[2019-09-11] MEDS: LACTATED RINGERS 1,000 ML 75 ML IV CONT (09:03)
--- NOTE | 2019-09-11 09:10 | WPDINTPN ---
Progress Note: A&P Assessment and Plan (1) Septic shock: Code(s): A41.9 - Sepsis, unspecified organism; R65.21 - Severe sepsis with septic shock Status: Acute Assessment and Plan: patient presented with fevers, cough, hypotensive, chest x-ray showed pneumonia - likely source - lungs and blood - blood cultures growing MRSA - blood pressures are stable at this time, urine output has been adequate - continue vancomycin, ceftriaxone and azithromycin (2) MRSA bacteremia: Code(s): R78.81 - Bacteremia; B95.62 - Methicillin resistant Staphylococcus aureus infection as the cause of diseases classified elsewhere Status: Acute Assessment and Plan: MRSA bacteremia: Sensitivities pending, continue vancomycin - will repeat blood cultures - echocardiogram to rule out vegetation - infectious Disease has been consulted (3) Acute respiratory failure: Qualifiers: Respiratory failure complication: hypoxia Qualified Code(s): J96.01 - Acute respiratory failure with hypoxia Code(s): J96.00 - Acute respiratory failure, unspecified whether with hypoxia or hypercapnia Status: Acute Assessment and Plan: acute respiratory failure likely related to pneumonia, shortness of breath with cough - sputum cultures have been obtained and pending - continue antibiotics as above - BiPAP as needed - chest x-ray reviewed (4) HCAP (healthcare-associated pneumonia): Code(s): J18.9 - Pneumonia, unspecified organism Status: Acute Assessment and Plan: antibiotics as above for pneumonia, sputum culture is pending (5) Hypomagnesemia: Code(s): E83.42 - Hypomagnesemia Status: Acute Assessment and Plan: resolved (6) HTN (hypertension): Qualifiers: Hypertension type: essential hypertension Qualified Code(s): I10 - Essential (primary) hypertension Code(s): I10 - Essential (primary) hypertension Status: Chronic Assessment and Plan: patient with history of essential hypertension on multiple home medications which currently are on hold since patient was in septic shock requiring Levophed briefly. - patient went into SVT, started patient back on her metoprolol, olmesartan, clonidine. (7) Anxiety: Code(s): F41.9 - Anxiety disorder, unspecified Status: Chronic Assessment and Plan: on lorazepam p.r.n. anxiety (8) History of seizure: Code(s): Z87.898 - Personal history of other specified conditions Status: Acute Assessment and Plan: continue primidone (9) DVT prophylaxis: Code(s): Z29.9 - Encounter for prophylactic measures, unspecified Status: Acute Assessment and Plan: enoxaparin SQ Additional Plan Discussed with patient updated her with her condition and plan of care. I updated the patient with her radiology and lab reports, also with a microbiology reports that she has MRSA bacteremia. Answered all questions Code status: Full code Critical care time spent: 32 minutes Due to a high probability of clinically significant, life threatening deterioration, the patient required my highest level of preparedness to intervene emergently and I personally spent this critical care time directly and personally managing the patient. This critical care time included obtaining a history; examining the patient; pulse oximetry; ordering and review of studies; arranging urgent treatment with development of a management plan; evaluation of patient's response to treatment; frequent reassessment; and discussions with other providers. It was exclusive of separately billable procedures and treating other patients and teaching time. Please see Assessment and Plan section and the rest of the note for further information on patient assessment and treatment Subjective Date/time seen: 09/11/19 09:10 REASON FOR CONSULT: pneumonia, acute respiratory failure, fevers, septi
[2019-09-11] MEDS: LORATADINE 10 MG TABLET PO (12:39)
[2019-09-11] MEDS: LORAZEPAM INJ 2 MG/ML VIAL 0.5 MG IV PUSH ×2 (13:22→20:44)
--- NOTE | 2019-09-11 15:18 | WPDINFPN2 ---
Progress Note: A&P Assessment and Plan (1) MRSA bacteremia: Code(s): R78.81 - Bacteremia; B95.62 - Methicillin resistant Staphylococcus aureus infection as the cause of diseases classified elsewhere Status: Acute Assessment and Plan: 1. MRSA bacteremia with infection, lung source 2. Recent (06/28) compound fracture L tibia, ORIF 3. L TKA REC Vanc #3, stop Ctx and azithro. BCs repeated. Check Xray tibia, though this is less likely the source of her bacteremia. Prolonged IV therapy. Subjective Date/time seen: 09/11/19 15:18 Objective Data Vital Signs Vital Signs: Vital Signs - 24 hr 09/10/19 16:00 09/10/19 18:00 09/10/19 19:42 Temperature 36.4 C L 36.4 C L Pulse Rate 102 H 100 102 H Respiratory Rate 16 14 15 Blood Pressure 137/71 153/64 H Pulse Oximetry 96 95 96 09/10/19 20:00 09/10/19 20:50 09/10/19 21:01 Temperature 36.5 C Pulse Rate 108 H 109 H 115 H Respiratory Rate 15 27 H 24 H Blood Pressure 164/74 H Pulse Oximetry 95 95 09/10/19 21:38 09/10/19 21:55 09/10/19 22:00 Temperature 36.8 C Pulse Rate 125 H 128 H 156 H Respiratory Rate 16 Blood Pressure 141/54 H Pulse Oximetry 92 09/10/19 22:48 09/10/19 23:31 09/11/19 00:00 Temperature 36.8 C 36.8 C Pulse Rate 102 H 98 99 Respiratory Rate 15 16 16 Blood Pressure 148/70 H Pulse Oximetry 93 93 94 09/11/19 01:46 09/11/19 01:56 09/11/19 02:00 Temperature 36.7 C Pulse Rate 101 H 106 H 102 H Respiratory Rate 17 18 16 Blood Pressure 139/72 Pulse Oximetry 97 09/11/19 03:38 09/11/19 04:00 09/11/19 06:00 Temperature 36.7 C 36.8 C Pulse Rate 99 101 H 101 H Respiratory Rate 17 19 14 Blood Pressure 152/82 H 159/73 H Pulse Oximetry 95 96 95 09/11/19 08:00 09/11/19 08:52 09/11/19 09:53 Temperature 37.0 C Pulse Rate 112 H 121 H 102 H Respiratory Rate 20 18 Blood Pressure 158/89 H Pulse Oximetry 94 92 09/11/19 10:00 09/11/19 10:06 09/11/19 10:38 Temperature 36.7 C Pulse Rate 107 H 104 H 109 H Respiratory Rate 17 22 H Blood Pressure 157/73 H Pulse Oximetry 93 09/11/19 12:00 09/11/19 13:07 Temperature 37.6 C Pulse Rate 109 H Respiratory Rate Blood Pressure Pulse Oximetry Intake/Output Intake/Output: Intake & Output 09/08/19 09/09/19 09/10/19 09/11/19 23:59 23:59 23:59 23:59 Intake Total 7904 5761 1500 Output Total 150 2600 1000 Balance 7754 3161 500 Meds/Results Medications: Active Medications Generic Name Dose Route Start Last Admin Trade Name Freq PRN Reason Stop Dose Admin Albuterol 5 mg 09/09/19 20:00 09/11/19 09:52 Albuterol Sulf Neb 2.5mg/0.5ml INHALATION 5 mg Q6HRT KELIN Administration Clonidine HCl 0.2 mg 09/11/19 09:00 09/11/19 08:53 Catapres PO 0.2 mg Q12HR KELIN Administration Dornase Harjeet 2.5 mg 09/11/19 20:00 Pulmozyme INHALATION Q12HRT KELIN Enoxaparin Sodium 40 mg 09/10/19 09:00 09/11/19 08:55 Lovenox SUB-Q 40 mg DAILY KELIN Administration Famciclovir 250 mg 09/09/19 21:00 09/11/19 08:55 Famvir PO 250 mg Q12HR KELIN Administration Fluticasone Propionate 2 spray 09/10/19 09:00 09/11/19 08:54 Flonase 0.05% Nasal Blunt NASAL 2 spray DAILY KELIN Administration Guaifenesin 1,200 mg 09/11/19 09:00 09/11/19 12:38 Mucinex 12 Hr Tab PO 1,200 mg Q12HR KELIN Administration Hydralazine HCl 50 mg 09/10/19 21:00 09/11/19 08:52 Apresoline Tablet PO 50 mg TID KELIN Administration Ceftriaxone Sodium/Dextrose 1 gm in 50 mls @ 100 mls/hr 09/10/19 15:00 09/10/19 15:29 Rocephin 1 Gm/D5w 50 Ml IVPB Infused DAILY@1500 KELIN Infusion Azithromycin 500 mg in 250 mls @ 250 mls/hr 09/10/19 16:00 09/10/19 16:32 Zithromax IVPB Infused DAILY@1600 KELIN Infusion Vancomycin HCl 1,750 mg in 500 mls @ 250 mls/hr 09/09/19 16:00 09/10/19 18:36 Vancomycin 1,750 Mg/D5w 500 Ml IVPB Infused Q24H KELIN Infusion Lactated Ringer's 1,000 mls @ 75 mls/hr 02
[2019-09-11] MEDS: POTASSIUM PHOS,M-BASIC-D-BASIC 20 MMOL in SODIUM CHLORIDE 0.9% IV 250 ML 64 MMOL IVPB (17:08)
--- NOTE | 2019-09-11 19:52 | CONS_ITS ---
DATE OF CONSULTATION: 09/11/2019 REASON FOR CONSULTATION: MRSA bacteremia. HISTORY OF PRESENT ILLNESS: I was not notified this consult until 1.5 hours ago. The patient is a 68-year-old female who had a fall resulting in compound fracture of the left tibia as well as at the right ankle. She was taken to the operating room on June 28 at [facility] and had ORIF performed. She was on by her description IV antibiotics while in the hospital and 2 weeks of oral antibiotics after discharge, unknown identity. When seen in the office about 2 weeks postop, her antibiotics were renewed for another 2 weeks, same drug apparently. Otherwise, she has been on no recent antibiotics for any purpose. She was told that the left tibia was infected from the very beginning. She did have a wound VAC while in the hospital prior to her discharge. The incision and wound have apparently not healed appropriately though she is continuing to follow with Orthopedic Department with her next appointment being in another 2-3 weeks. She presented to this hospital on September 09 with one-day of fever up to 38.8, also dyspnea, cough, no sputum production. While here, she has been given ceftriaxone, azithromycin, and vancomycin. Consultation was requested. Her shortness of breath is somewhat improved, but not resolved. No events in the hospital. She did need transfer to the intensive care unit yesterday morning due to respiratory insufficiency. She was given positive-pressure ventilation, now discontinued. ALLERGIES: CONTRAST DYE. OTHERS NOT PERTINENT. HABITS: No tobacco and no alcohol. PRESENT MEDICATIONS: No systemic immunosuppressants. PAST MEDICAL HISTORY: She has had left total knee arthroplasty, which require revision due to inadequate ligament repair. She also has had footdrop and need for left first toe fixation, apparently as complications of the knee operations. There is a history 2 years ago of E. coli bacteremia due to UTI. She does not have a chronic Delarosa, but one is present since September 09. Otherwise, previous tonsillectomy, appendectomy, hysterectomy, herpes zoster, SANTI, meningitis, hypertension, hyperlipidemia, home O2 2 L, bipolar, GERD, epilepsy, diverticulitis, depression, chronic hyponatremia, anxiety, and asthma. REVIEW OF SYSTEMS: 14-point review otherwise negative. FAMILY HISTORY: Mental illness, heart disease, hypertension, diabetes, emphysema. SOCIAL HISTORY: shelter resident most recently, previously lived in [place]. She thinks she caught her pneumonia from a roommate at her rehab facility. There are no family at the bedside. She is single and disabled. PHYSICAL EXAMINATION: GENERAL: This is a female, who appears her actual age. No acute distress. VITAL SIGNS: Her temperature on admission was 40.5, which was her T-max for that day. She has been afebrile since midnight, the night before last. She is on no pressors, 109, 22, 157/73, 93%. SKIN: Warm and dry. No rashes. EENT: The conjunctivae are normal. The pupils are equal, round, and react to light. The conjunctiva have no discharge. The oropharynx, oral mucosa normal. Teeth in good repair. No paranasal sinus erythema, edema, tenderness. NECK: Without meningismus or mass. She has a right IJ triple-lumen catheter in place, 2 days dwell time. LUNGS: Diminished breath sounds. Clear to percussion, rales snf up both lung [place]. Breath sounds are vesicular. CARDIAC: Tachycardic regular. No murmurs or gallops. ABDOMEN: Morbidly obese, nontender. No organomegaly. No masses. Normal bowel sounds. EXTREMITIES: Right medial ankle has a surgical scar, which is well healed. She has 2+ nonpitting edema at the distal legs, feet, also in the hands. No cyanosis. MUSCULOSKELETAL: She
[2019-09-11] MEDS: PANTOPRAZOLE 40 MG TABLET PO (20:22)
[2019-09-11] MEDS: MUPIROCIN 2% OINT 22 GM TUBE 1 APPLIC EACH NARE (20:23)
[2019-09-11] MEDS: DORNASE ALFA INH SOLN 1 MG/ML 2.5 ML AMP 2.5 MG INHALATION (21:00)
[2019-09-12] VITALS (29 sets, daily range): BP systolic 125–181; BP diastolic 66–81; PULSE 86–188; RESP 18–33; TEMP 36.9–37.6; O2SAT 87–96
--- NOTE | 2019-09-12 | ECG_ITS ---
Measurements Intervals [place] Rate: 133 P: DC: 0 QRS: -10 QRSD: 88 T: 72 QT: 291 QTc: 434 Interpretive Statements ATRIAL FIBRILLATION WITH RAPID VENTRICULAR RESPONSE VOLTAGE CRITERIA FOR LVH MINIMAL Q WAVES- LATERAL LEADS ABNORMAL ECG Electronically Signed On 09-12-2019 7:07:38 BUSINESS OPERATIONS MANAGER by Balaji Gomez D.O.
[2019-09-12] MEDS: LACTATED RINGERS 1,000 ML 75 ML IV CONT (00:06)
--- NOTE | 2019-09-12 01:19 | ECG_ITS ---
Measurements Intervals [place] Rate: 166 P: NM: 0 QRS: -12 QRSD: 89 T: 131 QT: 264 QTc: 439 Interpretive Statements ATRIAL FIBRILLATION WITH RAPID VENTRICULAR RESPONSE LEFT VENTRICULAR HYPERTROPHY AND ST-T CHANGE BASELINE ARTIFACT- I, II, AVR, V1 ABNORMAL ECG Electronically Signed On 09-12-2019 6:33:34 GENERATOR REBUILDER by Balaji Gomez D.O.
[2019-09-12] MEDS: IPRATROPIUM BR 0.02% INH SOLN 0.5 MG/2.5 ML VIAL INHALATION ×4 (01:30→20:00)
[2019-09-12] MEDS: ALBUTEROL SULFATE NEB 2.5 MG/0.5 ML INH 5 MG INHALATION ×4 (01:30→20:00)
[2019-09-12 01:49] LABS: Blood Urea Nitrogen 8 mg/dL (7-17); Calcium 7.7 mg/dL (8.4-10.2); Carbon Dioxide 26 mmol/L (22-30); Chloride 93 mmol/L (98-107); Estimated CRCL calculation 94 ml/min; Estimated Glomerular Filt Rate > 60; Glucose 111 mg/dL (65-105); Magnesium 1.9 mg/dL (1.6-2.3); Potassium 3.8 mmol/L (3.4-5.0); Sodium 128 mmol/L (137-145)
--- NOTE | 2019-09-12 02:01 | PC.NURSE ---
This patient, Celestina Ewing, was transferred to [IMU ] on 09/12/19 at 0203. Personal belongings sent with patient. Belongings list checked and signed with receiving [ Nurse]. Report given to [Anca ]. Appropriate documentation sent with patient.
[2019-09-12] MEDS: METOPROLOL TARTRATE INJ 5 MG/5 ML VIAL IV PUSH ×2 (02:21→07:37)
--- NOTE | 2019-09-12 02:42 | PM.EVENT ---
Event Note Event Note Event Note: This is a 68 year old female who is being treated for pneumonia and sepsis who suddenly developed tachycardia w/ heart rate in the 170s. On arrival to bedside the patient denies any chest pain or worsening symptoms. ICU staff alerted me that the patient had been going in and out of SVT since last night. The patient was transferred to IMU. Initial EKG demonstrated SVT. The patient was treated with 5 mg of IV Lopressor which lowered the patient's HR to the 130s and demonstrated atrial fibrillation w/ RVR. The patient has no history of previous arrhythmias. She denies any active blood loss at this time. A/P- New Onset atrial fibrillation w/ RVR - CHADSVASc score - 3 ~Echocardiogram has been obtained and demonstrated an estimated EF 65-70%. ~Diltiazem IV bolus and IV drip for rate control ~Therapeutic Lovenox for anticoagulation ~TSH recently obtained. ~Cardiology consult in am for new onset atrial fibrillation ~Will continue to reassess overnight as needed.
[2019-09-12] MEDS: ENOXAPARIN 120 MG/0.8 ML SYRINGE 115 MG SUB-Q ×2 (03:54→17:10)
[2019-09-12 04:52] LABS: Basophils Absolute Auto 0.1 K/mm3 (0.0-0.1); Basophils Percent Auto 0.5 % (0.2-1.2); Hematocrit 25.6 % (37.0-47.0); Immature Granulocyte Absolute 1.66 K/mm3 (0.00-0.031); Immature Granulocyte Percent A 6.8 % (0-0.5); Lymphocytes Absolute Auto 1.85 K/mm3 (0.9-3.2); Lymphocytes Percent Auto 7.6 % (18.3-44.2); Mean Corpuscular HGB Conc 31.3 g/dl (32-36); Mean Corpuscular Hemoglobin 26.1 pg (26-34); Mean Corpuscular Volume 83.4 fl (80-100); Mean Platelet Volume 9.9 fl (7.4-10.4); Monocytes Absolute Auto 2.7 K/mm3 (0.1-0.6); Neutrophils Absolute Auto 17.9 K/mm3 (1.3-6.7); Neutrophils Percent Auto 74.1 % (45.5-73.1); Nucleated Red Blood Cells Perc 0.1 % (0.0-0.2); Platelet Count Result 214 k/mm3 (150-375); Red Blood Count 3.07 M/mm3 (4.2-5.4); Red Cell Distribution Width 15.9 % (11.5-14.5); White Blood Count 24.3 K/mm3 (4.5-10.0)
[2019-09-12 05:10] LABS: Alanine Aminotransferase 17 U/L (4-35); Albumin Level 2.9 g/dL (3.5-5.1); Alkaline Phosphatase 81 U/L (38-126); Aspartate Amino Transferase 23 U/L (14-36); Bilirubin,Total 0.4 mg/dL (0.2-1.3); Blood Urea Nitrogen 8 mg/dL (7-17); Calcium 7.6 mg/dL (8.4-10.2); Carbon Dioxide 25 mmol/L (22-30); Chloride 92 mmol/L (98-107); Estimated CRCL calculation 94 ml/min; Estimated Glomerular Filt Rate > 60; Glucose 111 mg/dL (65-105); Magnesium 1.8 mg/dL (1.6-2.3); Potassium 3.7 mmol/L (3.4-5.0); Sodium 128 mmol/L (137-145)
[2019-09-12] MEDS: LORAZEPAM INJ 2 MG/ML VIAL 0.5 MG IV PUSH ×2 (05:37→21:37)
[2019-09-12] MEDS: DORNASE ALFA INH SOLN 1 MG/ML 2.5 ML AMP 2.5 MG INHALATION ×2 (07:15→20:00)
--- NOTE | 2019-09-12 08:43 | PM.CNCAR ---
Assessment and Plan Assessment and plan (1) Atrial fibrillation with RVR: Code(s): I48.91 - Unspecified atrial fibrillation Status: Acute Assessment and Plan: 68-year-old female with medical history of hypertension, chronic respiratory failure. Recent fall, and fracture of left tibia and right malleolus; status post ORIF left tibia and right malleolus in June 2019. Admitted to [facility] with acute on chronic respiratory failure, found to be septic and with MRSA bacteremia. Patient in atrial fibrillation with RVR. No known history of atrial fibrillation. Echocardiogram during this hospitalization shows normal LV systolic function. -continue IV diltiazem. May use esmolol for rate control as necessary. Patient has history of iodine allergy, could not use amiodarone. Monitor closely on telemetry. Will do DC cardioversion for any atrial fibrillation with hemodynamic instability. Patient's symptoms of atrial fibrillation are likely triggered by our underlying sepsis/systemic inflammation. Hopefully, with resolution of infection, her rhythm may revert back to sinus rhythm and/or heart rate will be better controlled. Also check for any possibility of pulmonary embolism, since patient had recent orthopedic surgery and prolonged immobility. Check venous Doppler. D-dimer is anticipated to be elevated. If positive for DVT, check CT scan of the chest. -check serial troponins -continue anticoagulation with low-molecular weight heparin - Spoke with Dr Morrison. Transfer to ICU will be appropriate. (2) MRSA bacteremia: Code(s): R78.81 - Bacteremia; B95.62 - Methicillin resistant Staphylococcus aureus infection as the cause of diseases classified elsewhere Status: Acute Assessment and Plan: Patient has MRSA bacteremia. Management as per primary team, Infectious Disease. Patient is currently on antibiotics. She will need transesophageal echocardiogram sometime in next couple of days as allowed by her clinical stability to evaluate for any endocarditis. (3) Acute and chronic respiratory failure: Code(s): J96.20 - Acute and chronic respiratory failure, unspecified whether with hypoxia or hypercapnia Status: Acute Assessment and Plan: Supplemental oxygen, BiPAP History of Present Illness History of Present Illness Consult date/time: Date of consult: 09/12/19 08:43 Requesting physician: Reason for consult: Atrial fibrillation with RVR Chief complaint: Shortness of breath HPI: 68-year-old female with past medical history of hypertension, chronic respiratory failure on home oxygen. Patient was admitted to [facility] on 09/09/2019 from [facility] with respiratory distress and fever. Patient has been in the detention re[facility] after recent fall and fracture. Patient states that she had a fall in early June, and was admitted to [facility]. Patient states that it was a mechanical fall. She underwent ORIF left tibial and right malleolus fractures on 06/28 and 06/30/2019 respectively at [facility]. Review of medical records from outside hospital indicate that she was discharged on 07/06/2019 to the rehab. Upon arrival to the [facility], patient was found to be in respiratory failure and was saturating at 92% on 15 L of oxygen. She was also found to be febrile at 101.9. She was briefly on pressor support in the ICU, and was later transferred to IMU. Patient was found to be in sinus tachycardia, SVT and also in the atrial fibrillation. Her recent EKG on my personal interpretation shows atrial fibrillation with RVR. On telemetry, patient is in AFib with RVR. She has received metoprolol IV, IV diltiazem boluses, and is currently on IV diltiazem drip. Her current ventricular rates are in 110s to 120s. She denies any ongoing symptoms of chest pain or shortness of breath. Echocardiogram during this hospitalization shows normal LVEF at 65-70%. Patient h
--- NOTE | 2019-09-12 09:27 | PM.IMPN ---
Progress Note: A&P Assessment and Plan (1) Atrial fibrillation with RVR: Code(s): I48.91 - Unspecified atrial fibrillation Status: Acute Assessment and Plan: Patient devloped aAFib/RVR last night and placed on Diltiazem drip. HR still not well controlled. Esmolol drip being considered so patient moved to ICU. Echo 65% EF with diastolic dysfunction. Therapeutic Lovenox stared. Doppler negative for DVT. (2) Acute and chronic respiratory failure: Code(s): J96.20 - Acute and chronic respiratory failure, unspecified whether with hypoxia or hypercapnia Status: Acute Assessment and Plan: Result of pneumonia and AFib/RVR. Had to go back on BiPAP and moved to the ICU. Discussed with cloth measurer. IVF stopped. ABG noted, Continue IV antibiotics. Continue nebulizer treatments. Will continue to monitor. (3) Septic shock: Code(s): A41.9 - Sepsis, unspecified organism; R65.21 - Severe sepsis with septic shock Status: Acute Assessment and Plan: Criteria met on admission. Result of pneumonia. Was only on Levophed for short period of time on admission. Blood cultures (2of2) positive for MRSA. Repeat BCx also positive. Appreciate ID input. (4) HCAP (healthcare-associated pneumonia): Code(s): J18.9 - Pneumonia, unspecified organism Status: Acute Assessment and Plan: MRSA PNA. Chest x-ray today reviewed and showing increasing diffuse bilateral airspace disease. Consider pulmonary edema related to the RVR vs worsening PNA. Continue IV Vancomycin. (5) HTN (hypertension): Qualifiers: Hypertension type: essential hypertension Qualified Code(s): I10 - Essential (primary) hypertension Code(s): I10 - Essential (primary) hypertension Status: Chronic Assessment and Plan: Blood pressure reviewed on 09/12/2019. BP elevated at times. Currently on Metoprolol, hydralazine and clonidine. Diltiazem drip stared. Continue to monitor. (6) Hypomagnesemia: Code(s): E83.42 - Hypomagnesemia Status: Acute Assessment and Plan: Magnesium 1.9 today. Will continue to monitor and replace as needed. (7) Anemia: Qualifiers: Anemia type: unspecified type Qualified Code(s): D64.9 - Anemia, unspecified Code(s): D64.9 - Anemia, unspecified Status: Chronic Assessment and Plan: Hemoglobin low but stable at 8 today. No active sign of bleeding. Will monitor while on Lovenox. (8) Chronic hyponatremia: Code(s): E87.1 - Hypo-osmolality and hyponatremia Status: Acute Assessment and Plan: Sodium still low but slowly improving to 128 today. Will continue to follow. (9) HLD (hyperlipidemia): Qualifiers: Hyperlipidemia type: unspecified Qualified Code(s): E78.5 - Hyperlipidemia, unspecified Code(s): E78.5 - Hyperlipidemia, unspecified Status: Chronic Assessment and Plan: Atorvastatin on hold. (10) Anxiety: Code(s): F41.9 - Anxiety disorder, unspecified Status: Chronic Assessment and Plan: Not on buspirone at home. Had been started on admission but discontinued yesterday. Patient states she does not wish to have buspirone as she does not need the medication. Does have IV lorazepam available as needed. (11) DVT prophylaxis: Code(s): Z29.9 - Encounter for prophylactic measures, unspecified Status: Acute Assessment and Plan: Theraputic Lovenox Subjective Date/time seen: 09/12/19 09:27 Interval history: 68yo female here for septic shock from HCAP. Assuming care. Chart reviewed. Patient has had a recent left tibia/left ankle fractures with repair at [place]. Weaned off BiPAP. She did wear BiPAP for a few hours overnight. Patient developed new onset AFib overnight requiring Diltiazem drip. Cardiology consulted. Diltiazem at 15mg/hour now. HR still poorly cont
[2019-09-12] MEDS: MORPHINE SULFATE 4 MG/ML INJ 2 MG IV PUSH (09:54)
[2019-09-12 10:11] LABS: Alveolar/Arterial O2 Gradient 470.7 mmHg; Base Excess ABG 0.6 mEq/l (+/-2.0); Fractional Inspired Oxygen 80 %; HCO3 ABG 24.3 mEq/l (22.0-26.0); Oxygen Content ABG 12.1 %vol (16.0-22.0); Oxygen Saturation ABG 93.3 % (95.0-100.0); PCO2 ABG 35.2 mmHg (35.0-45.0); PO2 ABG 62.7 mmHg (80.0-100.0); PO2 FiO2 Ratio Arterial Blood 0.78 %; Total Hemoglobin 9.4 g/dL (12.0-18.0); pH ABG 7.457 (7.350-7.450)
[2019-09-12 10:12] LABS: Device NON-INVASIVE VENT; Modified Allen's Test Pass; Site Drawn RIGHT RADIAL
[2019-09-12 10:13] LABS: Non-Invasive Expiratory Pressure 8 CMH2O; Non-Invasive Inspiratory Pressure 14 CMH2O; Non-Invasive Vent Rate 12 /MIN
[2019-09-12 10:14] LABS: Magnesium 1.9 mg/dL (1.6-2.3)
[2019-09-12 10:30] LABS: Troponin I 0.048 ng/mL (0.000-0.034)
--- NOTE | 2019-09-12 11:41 | WPDINTPN ---
Progress Note: A&P Assessment and Plan (1) Atrial fibrillation with RVR: Code(s): I48.91 - Unspecified atrial fibrillation Status: Acute Assessment and Plan: patient with AFib RVR, on Cardizem infusion at 15 mg/hr. continues to be tachycardic in the 120s to 130s. - Cardiology has evaluated the patient, recommended esmolol of heart rate is not controlled. - lower extremity Dopplers negative for DVT - Discussed with Dr. Deshpande, patient still tachycardic in the 1 20s to 130s and ntermittently goes up to 140s. Will switch patient from Cardizem to esmolol, orders placed - patient on therapeutic Lovenox (2) MRSA bacteremia: Code(s): R78.81 - Bacteremia; B95.62 - Methicillin resistant Staphylococcus aureus infection as the cause of diseases classified elsewhere Status: Acute Assessment and Plan: MRSA bacteremia: continue vancomycin per Infectious Disease team - 09/11/2027 blood cultures pending - echocardiogram 09/09/2019, hyperdynamic LV systolic function with EF of 65-70%, mild aortic valve sclerosis, trace mitral valve regurg. Grade 1 diastolic dysfunction - appreciate infectious disease evaluation and recommendation - may require ANNA at some point (3) Sepsis: Qualifiers: Sepsis type: methicillin resistant Staphylococcus aureus Sepsis acute organ dysfunction status: unspecified Qualified Code(s): A41.02 - Sepsis due to Methicillin resistant Staphylococcus aureus Code(s): A41.9 - Sepsis, unspecified organism Status: Acute Assessment and Plan: patient initially presented with septic shock on 09/10/2019. was on pressor support very briefly. Currently hypertensive. Worsening leukocytosis - chest x-ray shows multifocal worsening pneumonia - blood cultures 09/09/2019 growing MRSA, repeat culture cultures 09/11/2019 pending - (4) Acute respiratory failure: Qualifiers: Respiratory failure complication: hypoxia Qualified Code(s): J96.01 - Acute respiratory failure with hypoxia Code(s): J96.00 - Acute respiratory failure, unspecified whether with hypoxia or hypercapnia Status: Acute Assessment and Plan: acute respiratory failure secondary to pneumonia, patient currently on BiPAP and tolerating. Currently on 60% FiO2, 14/8 BiPAP settings. If patient worsens, may require mechanical ventilation - sputum cultures have been obtained and pending - continue antibiotics per Infectious Diseasee - chest x-ray and ABGs reviewed (5) HCAP (healthcare-associated pneumonia): Code(s): J18.9 - Pneumonia, unspecified organism Status: Acute Assessment and Plan: antibiotics as above for pneumonia, sputum culture is pending (6) Hypomagnesemia: Code(s): E83.42 - Hypomagnesemia Status: Acute Assessment and Plan: resolved (7) HTN (hypertension): Qualifiers: Hypertension type: essential hypertension Qualified Code(s): I10 - Essential (primary) hypertension Code(s): I10 - Essential (primary) hypertension Status: Chronic Assessment and Plan: patient with history of essential hypertension on multiple home medications - patient in AFib RVR, on Cardizem infusion, blood pressures still remain elevated - starting esmolol infusion which will possibly help the blood pressure is also (8) Anxiety: Code(s): F41.9 - Anxiety disorder, unspecified Status: Chronic Assessment and Plan: on lorazepam p.r.n. anxiety (9) History of seizure: Code(s): Z87.898 - Personal history of other specified conditions Status: Acute Assessment and Plan: continue primidone (10) DVT prophylaxis: Code(s): Z29.9 - Encounter for prophylactic measures, unspecified Status: Acute Assessment and Plan: enoxaparin SQ Additional Plan discussed with patient and updated her with her condition and plan of care. she is aware that she is
[2019-09-12] MEDS: MUPIROCIN 2% OINT 22 GM TUBE 1 APPLIC EACH NARE ×2 (12:32→21:12)
--- NOTE | 2019-09-12 13:37 | WPDINFPN2 ---
Progress Note: A&P Assessment and Plan (1) MRSA bacteremia: Code(s): R78.81 - Bacteremia; B95.62 - Methicillin resistant Staphylococcus aureus infection as the cause of diseases classified elsewhere Status: Acute Assessment and Plan: 1. MRSA bacteremia with infection, lung source. Less likely source: IE, L leg soft tissue or bone infection, skin infection elsewhere, upper respiratory, other endovascular. However, BC 09/11 is still +. CXR worse. WBC is rising 2. Recent (06/28) compound fracture L tibia, ORIF 3. L TKA REC Vanc #4, continue. Target trough 15-20. The R ij line is not in need of removal at present. No ANNA needed from my standpoint. Redo BCs AM 09/14. Prolonged IV therapy. Subjective Date/time seen: 09/12/19 13:37 Interval history: awake, on PPV Exam Narrative: Exam Narrative: afebrile Const: General: in distress Eyes: General: appearance normal, both eyes and all related structures Neck: Other: IJ site on right without tenderness hematoma drainage Resp: Auscultation: rales and diminished lung sounds Cardio: Rate: tachycardic Rhythm: abnormal rhythm Heart sounds: no gallops and no murmurs GI: Inspection: non-distended GI Palp: Yes Soft to palpation, No Tenderness to palpation present (GI) and No Guarding due to palpation present (GI) Urinary Catheter: Urinary Catheter: patent and draining and urine clear Objective Data Vital Signs Vital Signs: Vital Signs - 24 hr 09/11/19 16:00 09/11/19 16:05 09/11/19 16:20 Temperature 37.4 C Pulse Rate 97 101 H 99 Respiratory Rate 18 19 20 Blood Pressure 162/77 H Pulse Oximetry 93 09/11/19 16:22 09/11/19 20:00 09/11/19 20:22 Temperature 37.4 C 37.2 C Pulse Rate 101 H 112 H 112 H Respiratory Rate 19 18 Blood Pressure 162/77 H 160/63 H Pulse Oximetry 100 91 09/11/19 20:50 09/11/19 21:03 09/11/19 21:04 Temperature Pulse Rate 100 98 Respiratory Rate 20 20 Blood Pressure Pulse Oximetry 94 09/11/19 22:00 09/11/19 22:53 09/12/19 00:00 Temperature 36.7 C Pulse Rate 116 H 100 120 H Respiratory Rate 20 26 H Blood Pressure 132/54 L Pulse Oximetry 90 97 09/12/19 01:17 09/12/19 01:25 09/12/19 01:43 Temperature 37.6 C H Pulse Rate 188 H 160 H 166 H Respiratory Rate 20 22 H 20 Blood Pressure 125/69 Pulse Oximetry 90 09/12/19 02:00 09/12/19 02:04 09/12/19 02:21 Temperature Pulse Rate 159 H 160 H Respiratory Rate Blood Pressure 148/66 H Pulse Oximetry 09/12/19 02:25 09/12/19 03:56 09/12/19 04:00 Temperature 37.2 C Pulse Rate 144 H 154 H 157 H Respiratory Rate 22 H Blood Pressure 150/77 H 149/74 H Pulse Oximetry 90 09/12/19 04:42 09/12/19 06:00 09/12/19 07:15 Temperature Pulse Rate 124 H 150 H Respiratory Rate 24 H Blood Pressure 157/73 H Pulse Oximetry 87 L 09/12/19 07:35 09/12/19 07:37 09/12/19 07:43 Temperature Pulse Rate 136 H 150 H Respiratory Rate 24 H Blood Pressure Pulse Oximetry 91 09/12/19 08:00 09/12/19 09:21 09/12/19 10:00 Temperature 36.9 C Pulse Rate 110 H 138 H 130 H Respiratory Rate 26 H 20 Blood Pressure 160/69 H Pulse Oximetry 87 L 93 09/12/19 12:00 Temperature 37.2 C Pulse Rate 118 H Respiratory Rate 23 H Blood Pressure 181/81 H Pulse Oximetry 94 Intake/Output Intake/Output: Intake & Output 09/09/19 09/10/19 09/11/19 09/12/19 23:59 23:59 23:59 23:59 Intake Total 7904 5761 5828 632 Output Total 150 2600 2225 1250 Balance 7748 1919 942 -875 Meds/Results Medications: Active Medications Generic Name Dose Route Start Last Admin Trade Name Freq PRN Reason Stop Dose Admin Albuterol 5 mg 09/09/19 20:00 09/12/19 07:15 Albuterol Sulf Neb 2.5mg/0.5ml INHALATION 5 mg Q6HRT KELIN Administration Clonidine HCl 0.2 mg 09/11/19 09:00 09/11/19 20:23 Catapres PO 0.2 mg Q12HR KELIN Administration Dornase Harjeet 2.5 mg 09/11/19 20:00 09/12/19 07:15 Pulmozyme INHA
[2019-09-12 13:50] LABS: Troponin I 0.039 ng/mL (0.000-0.034)
[2019-09-12 16:22] LABS: Troponin I 0.036 ng/mL (0.000-0.034)
--- NOTE | 2019-09-12 16:25 | PC.NURSE ---
This patient, Celestina Ewing, was transferred to ICU4 on 09/12/19 at 0955. Personal belongings sent with patient. Belongings list checked and signed with receiving. Report given to DARCI Antony. Appropriate documentation sent with patient. The patient was transferred to ICU at the request of Dr. Deshpande and Dr. Morrison. Dr Deshpande saw the patient this morning and, after his assessment, he found me at the desk and told me that he believed the patient needed to be transferred to ICU as he believed she was circling the drain and her status was deteriorating . He asked who the hospitalist was and I informed him that Dr. Morrison was her MD but he had not seen her yet. He asked that I contact him to see that patient. After Dr. Morrison assessed the patient, he and Dr. Deshpande spoke and decided to contact Dr. Sin about transferring the patient to ICU. At this time, the patient was SOB at rest and tachypneic with a HR in the 130's despite the Cardizem drip running at 15ml/hr as well as several IV pushes of Cardizem and Metoprolol thoughtout the night and morning. The patient was assessed by Dr. Sin and transferred to the ICU. Report was given at bedside to DARCI Antony.
[2019-09-12 17:01] LABS: Vancomycin Trough 5.9 ug/mL (10.0-20.0)
[2019-09-12] MEDS: PRIMIDONE 50 MG TABLET PO (17:10)
[2019-09-12] MEDS: FAMCICLOVIR 250 MG TABLET PO (21:12)
[2019-09-13] VITALS (27 sets, daily range): BP systolic 141–179; BP diastolic 66–79; PULSE 90–107; RESP 24–42; TEMP 36.9–38.1; O2SAT 89–100; BMI 46.6
[2019-09-13] MEDS: ALBUTEROL SULFATE NEB 2.5 MG/0.5 ML INH 5 MG INHALATION ×4 (01:06→20:48)
[2019-09-13] MEDS: IPRATROPIUM BR 0.02% INH SOLN 0.5 MG/2.5 ML VIAL INHALATION ×4 (01:07→20:49)
[2019-09-13] MEDS: LORAZEPAM INJ 2 MG/ML VIAL 0.5 MG IV PUSH ×4 (04:11→23:01)
[2019-09-13 04:27] LABS: Hemoglobin 7.5 g/dL (12.0-15.0); Mean Corpuscular HGB Conc 31.3 g/dl (32-36); Mean Corpuscular Hemoglobin 26.1 pg (26-34); Mean Corpuscular Volume 83.6 fl (80-100); Mean Platelet Volume 10.1 fl (7.4-10.4); Platelet Count Result 192 k/mm3 (150-375); Red Blood Count 2.87 M/mm3 (4.2-5.4); Red Cell Distribution Width 16.2 % (11.5-14.5); White Blood Count 27.4 K/mm3 (4.5-10.0)
[2019-09-13 04:46] LABS: Lactic Acid 0.7 mmol/L (0.7-2.1)
[2019-09-13 04:48] LABS: Blood Urea Nitrogen 8 mg/dL (7-17); Calcium 7.7 mg/dL (8.4-10.2); Carbon Dioxide 27 mmol/L (22-30); Chloride 92 mmol/L (98-107); Estimated CRCL calculation 94 ml/min; Estimated Glomerular Filt Rate > 60; Glucose 104 mg/dL (65-105); Phosphorus 3.1 mg/dL (2.5-4.5); Potassium 3.7 mmol/L (3.4-5.0); Sodium 128 mmol/L (137-145)
[2019-09-13 05:36] LABS: Alveolar/Arterial O2 Gradient 243.3 mmHg; Base Excess ABG -1.2 mEq/l (+/-2.0); Carboxyhemoglobin 0.2 % THb (0-2.0); Fractional Inspired Oxygen 50 %; HCO3 ABG 22.5 mEq/l (22.0-26.0); Methemoglobin ABG 0.5 %THb (0-1.5); Oxygen Content ABG 11.5 %vol (16.0-22.0); Oxygen Saturation ABG 95.7 % (95.0-100.0); Oxyhemoglobin 93.3 % THb (90.0-100.0); PCO2 ABG 33.8 mmHg (35.0-45.0); PO2 ABG 75.2 mmHg (80.0-100.0); Total Hemoglobin 8.7 g/dL (12.0-18.0); pH ABG 7.442 (7.350-7.450)
[2019-09-13 05:38] LABS: Device BIPAP; Expiratory Pressure 8 cmH2O; Inspiratory Pressure 14 cmH2O; Modified Allen's Test Pass; Site Drawn RIGHT RADIAL
[2019-09-13] MEDS: DORNASE ALFA INH SOLN 1 MG/ML 2.5 ML AMP 2.5 MG INHALATION (08:32)
[2019-09-13] MEDS: FLUTICASONE PROPIONATE 0.05% NA SPR 16 GM BTL (*BKC) 2 SPRAY NASAL (09:38)
[2019-09-13] MEDS: ENOXAPARIN 120 MG/0.8 ML SYRINGE 115 MG SUB-Q ×2 (09:38→22:44)
[2019-09-13] MEDS: FAMCICLOVIR 250 MG TABLET PO ×2 (09:38→22:45)
[2019-09-13] MEDS: LORATADINE 10 MG TABLET PO (09:39)
[2019-09-13] MEDS: LIDOCAINE 5% PATCH 1 PATCH TOPICAL (09:39)
[2019-09-13] MEDS: MUPIROCIN 2% OINT 22 GM TUBE 1 APPLIC EACH NARE ×2 (09:39→22:45)
[2019-09-13] MEDS: PANTOPRAZOLE SODIUM IV 40 MG VIAL IV PUSH (09:39)
--- NOTE | 2019-09-13 10:09 | PM.IMPN ---
Progress Note: A&P Assessment and Plan (1) Atrial fibrillation with RVR: Code(s): I48.91 - Unspecified atrial fibrillation Status: Acute Assessment and Plan: Patient devloped AFib/RVR on 09/11/19 and placed on Diltiazem drip. HR still not well controlled. Esmolol drip being considered so patient moved to ICU on 09/12. Echo 65% EF with diastolic dysfunction. Therapeutic Lovenox started. Doppler negative for DVT. Patient converted to NSR yesterday aftenoon. Patietn off Dilt drip but still on esmolol drip. Appreciate Cardiology input. (2) Acute and chronic respiratory failure: Code(s): J96.20 - Acute and chronic respiratory failure, unspecified whether with hypoxia or hypercapnia Status: Acute Assessment and Plan: Result of pneumonia and AFib/RVR. Had to go back on BiPAP and moved to the ICU. More stable. Wean off BiPAP as toelrated. Continue IV antibiotics. Continue nebulizer treatments. Will continue to monitor. Appreciate maintenance clerk input. (3) Septic shock: Code(s): A41.9 - Sepsis, unspecified organism; R65.21 - Severe sepsis with septic shock Status: Acute Assessment and Plan: Criteria met on admission. Result of pneumonia. Was only on Levophed for short period of time on admission. Blood cultures (2of2) positive for MRSA. Repeat BCx also positive (and probably MRSA). Echo not showing any suspicious valvular lesions. Appreciate ID input. (4) HCAP (healthcare-associated pneumonia): Code(s): J18.9 - Pneumonia, unspecified organism Status: Acute Assessment and Plan: MRSA PNA. Chest x-ray today reviewed and showing persistent diffuse bilateral airspace disease. Consider pulmonary edema related to the RVR vs worsening PNA. Continue IV Vancomycin. (5) HTN (hypertension): Qualifiers: Hypertension type: essential hypertension Qualified Code(s): I10 - Essential (primary) hypertension Code(s): I10 - Essential (primary) hypertension Status: Chronic Assessment and Plan: Blood pressure reviewed on 09/13/19. BP elevated at times. Metoprolol, hydralazine and clonidine on hold. Diltiazem drip off but still on esmolol. Continue to monitor. (6) Hypomagnesemia: Code(s): E83.42 - Hypomagnesemia Status: Acute Assessment and Plan: Magnesium remains normal range. Continue to monitor and replace as needed. (7) Anemia: Qualifiers: Anemia type: unspecified type Qualified Code(s): D64.9 - Anemia, unspecified Code(s): D64.9 - Anemia, unspecified Status: Chronic Assessment and Plan: Hemoglobin low but stable at 7-8 range. No active sign of bleeding. Will monitor while on Lovenox. (8) Chronic hyponatremia: Code(s): E87.1 - Hypo-osmolality and hyponatremia Status: Acute Assessment and Plan: Sodium still low but stable at 128 again. Will continue to follow. Check Urine Na (9) HLD (hyperlipidemia): Qualifiers: Hyperlipidemia type: unspecified Qualified Code(s): E78.5 - Hyperlipidemia, unspecified Code(s): E78.5 - Hyperlipidemia, unspecified Status: Chronic Assessment and Plan: LFTs normal. Atorvastatin on hold. (10) Anxiety: Code(s): F41.9 - Anxiety disorder, unspecified Status: Chronic Assessment and Plan: Not on buspirone at home. Had been started on admission but discontinued. Patient states she does not want buspirone. Does have IV lorazepam available as needed. (11) DVT prophylaxis: Code(s): Z29.9 - Encounter for prophylactic measures, unspecified Status: Acute Assessment and Plan: Theraputic Lovenox Subjective Date/time seen: 09/13/19 10:09 Interval history: 68yo female here for septic shock from HCAP. Patient has had a recent left tibia/left ankle fractures with repair at [place]. Weaned off BiPAP. Was doing well un
--- NOTE | 2019-09-13 11:31 | WPDINTPN ---
Progress Note: A&P Assessment and Plan (1) Atrial fibrillation with RVR: Code(s): I48.91 - Unspecified atrial fibrillation Status: Acute Assessment and Plan: patient started esmolol infusion yesterday since Cardizem was not helping a atrial fibrillation RVR. - lower extremity Dopplers negative for DVT - Patient converted to sinus rhythm controlled - continue therapeutic Lovenox (2) MRSA bacteremia: Code(s): R78.81 - Bacteremia; B95.62 - Methicillin resistant Staphylococcus aureus infection as the cause of diseases classified elsewhere Status: Acute Assessment and Plan: MRSA bacteremia: continue vancomycin per Infectious Disease team - 09/11/2027 repeat blood cultures growing Staph aureus 2/2 bottles, - echocardiogram 09/09/2019, hyperdynamic LV systolic function with EF of 65-70%, mild aortic valve sclerosis, trace mitral valve regurg. Grade 1 diastolic dysfunction - appreciate infectious disease evaluation and recommendation - may require ANNA at some point (3) Sepsis: Qualifiers: Sepsis type: methicillin resistant Staphylococcus aureus Sepsis acute organ dysfunction status: unspecified Qualified Code(s): A41.02 - Sepsis due to Methicillin resistant Staphylococcus aureus Code(s): A41.9 - Sepsis, unspecified organism Status: Acute Assessment and Plan: patient initially presented with septic shock on 09/10/2019. was on pressor support very briefly. Currently hypertensive. Worsening leukocytosis - chest x-ray shows multifocal worsening pneumonia - blood cultures 09/09/2019 growing MRSA, repeat culture cultures 09/11/2019 growing staph aureus 2/2 bottles - (4) Acute respiratory failure: Qualifiers: Respiratory failure complication: hypoxia Qualified Code(s): J96.01 - Acute respiratory failure with hypoxia Code(s): J96.00 - Acute respiratory failure, unspecified whether with hypoxia or hypercapnia Status: Acute Assessment and Plan: acute respiratory failure secondary to pneumonia, patient currently on BiPAP and tolerating. Currently on 60% FiO2, 14/8 BiPAP settings. discussed with patient running intubation to which she refused not only to me but also when the bedside RN and asked her she stated she does not want to be intubated and placed on mechanical ventilation. Patient also does not want CPR - sputum cultures have been obtained and pending - continue antibiotics per Infectious Diseasee - chest x-ray and ABGs reviewed (5) HCAP (healthcare-associated pneumonia): Code(s): J18.9 - Pneumonia, unspecified organism Status: Acute Assessment and Plan: antibiotics as above for pneumonia, sputum culture is pending (6) Hypomagnesemia: Code(s): E83.42 - Hypomagnesemia Status: Acute Assessment and Plan: resolved (7) HTN (hypertension): Qualifiers: Hypertension type: essential hypertension Qualified Code(s): I10 - Essential (primary) hypertension Code(s): I10 - Essential (primary) hypertension Status: Chronic Assessment and Plan: patient with history of essential hypertension on multiple home medications - patient in AFib RVR, on Cardizem infusion, blood pressures still remain elevated - starting esmolol infusion which will possibly help the blood pressure is also (8) Anxiety: Code(s): F41.9 - Anxiety disorder, unspecified Status: Chronic Assessment and Plan: on lorazepam p.r.n. anxiety (9) History of seizure: Code(s): Z87.898 - Personal history of other specified conditions Status: Acute Assessment and Plan: continue primidone (10) DVT prophylaxis: Code(s): Z29.9 - Encounter for prophylactic measures, unspecified Status: Acute Assessment and Plan: enoxaparin SQ Additional Plan discussed with patient and updated her with her condition and plan of care. when I d
--- NOTE | 2019-09-13 12:25 | WPDINFPN2 ---
Progress Note: A&P Assessment and Plan (1) MRSA bacteremia: Code(s): R78.81 - Bacteremia; B95.62 - Methicillin resistant Staphylococcus aureus infection as the cause of diseases classified elsewhere Status: Acute Assessment and Plan: 1. MRSA bacteremia with infection, lung source. Less likely source: IE, L leg soft tissue or bone infection, skin infection elsewhere, upper respiratory, other endovascular. WBC is rising 2. Recent (06/28) compound fracture L tibia, ORIF 3. L TKA REC Vanc #5, continue. Target trough 15-20. Trough yesterday was only 6, and I have communicated to PharmD to adjust dosing. The R ij line is not in need of removal at present. No ANNA needed from my standpoint. Redo BCs AM 09/14. Prolonged IV therapy. 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 Subjective Date/time seen: 09/13/19 12:25 Interval history: non verbal, lethargic. No pressors Exam Narrative: Exam Narrative: afebrile Const: General: no acute distress Eyes: General: appearance normal, both eyes and all related structures Resp: Effort & Inspection: normal respiratory effort Auscultation: clear to auscultation bilaterally and diminished lung sounds Cardio: Rate: tachycardic Rhythm: regular rhythm Heart sounds: no gallops and no murmurs GI: Inspection: non-distended GI Palp: Yes Soft to palpation and No Tenderness to palpation present (GI) Urinary Catheter: Urinary Catheter: patent and draining and urine clear Skin: General skin exam: no rashes or lesions noted Objective Data Vital Signs Vital Signs: Vital Signs - 24 hr 09/12/19 13:35 09/12/19 13:45 09/12/19 14:00 Temperature Pulse Rate 118 H 118 H 88 Respiratory Rate 24 H 24 H Blood Pressure Pulse Oximetry 09/12/19 16:00 09/12/19 18:00 09/12/19 20:00 Temperature 37.2 C 36.9 C Pulse Rate 93 92 86 Respiratory Rate 33 H 32 H Blood Pressure 156/70 H 154/67 H Pulse Oximetry 92 88 L 09/12/19 20:12 09/12/19 22:00 09/13/19 00:00 Temperature 36.9 C Pulse Rate 94 92 90 Respiratory Rate 26 H 28 H 30 H Blood Pressure 152/68 H 160/70 H Pulse Oximetry 96 98 09/13/19 01:03 09/13/19 01:08 09/13/19 01:20 Temperature Pulse Rate 93 92 Respiratory Rate 30 H 30 H 28 H Blood Pressure Pulse Oximetry 95 09/13/19 02:00 09/13/19 03:30 09/13/19 04:00 Temperature 37.4 C Pulse Rate 94 96 90 Respiratory Rate 33 H 40 H 36 H Blood Pressure 164/66 H 158/67 H Pulse Oximetry 96 97 96 09/13/19 06:10 09/13/19 08:31 09/13/19 08:41 Temperature Pulse Rate 93 94 100 Respiratory Rate 33 H 28 H 28 H Blood Pressure 171/74 H Pulse Oximetry 97 98 Intake/Output Intake/Output: Intake & Output 09/10/19 09/11/19 09/12/19 09/13/19 23:59 23:59 23:59 23:59 Intake Total 5776 2468 972 850 Output Total 2600 2225 2000 750 Balance 3161 243 1028 100 Meds/Results Medications: Active Medications Generic Name Dose Route Start Last Admin Trade Name Freq PRN Reason Stop Dose Admin Albuterol 5 mg 09/09/19 20:00 09/13/19 08:31 Albuterol Sulf Neb 2.5mg/0.5ml INHALATION 5 mg Q6HRT KELIN Administration Clonidine HCl 0.2 mg 09/11/19 09:00 09/11/19 20:23 Catapres PO 0.2 mg Q12HR KELIN Administration Dornase Harjeet 2.5 mg 09/11/19 20:00 09/13/19 08:32 Pulmozyme INHALATION 2.5 mg Q12HRT KELIN Administration Enoxaparin Sodium 115 mg 09/12/19 18:00 09/13/19 09:38 Lovenox SUB-Q 115 mg Q12HR KELIN Administration Famciclovir 250 mg 09/09/19 21:00 09/13/19 09:38 Famvir PO 250 mg Q12HR KELIN Administration Fluticasone Propionate 2 spray 09/10/19 09:00 09/13/19 09:38 Flonase 0.05% Nasal [place] NASAL 2 spray DAILY KELIN Administration Guaifenesin 1,200 mg 09/11/19 09:00 09/13/19 09:38 Mucinex 12 Hr Tab PO 1,200 mg Q12HR KELIN Administration Hydralazine HCl
[2019-09-13] MEDS: PRIMIDONE 50 MG TABLET PO (17:26)
--- NOTE | 2019-09-13 19:07 | PM.PNCARD ---
Progress Note: A&P Assessment and Plan (1) Atrial fibrillation with RVR: Code(s): I48.91 - Unspecified atrial fibrillation Status: Acute Assessment and Plan: Has converted to NSR with esmolol 25 mics per kilo. Anticoagulated with Lovenox (2) Acute and chronic respiratory failure: Code(s): J96.20 - Acute and chronic respiratory failure, unspecified whether with hypoxia or hypercapnia Status: Acute Assessment and Plan: On BiPAP, 50% FiO2 (3) MRSA bacteremia: Code(s): R78.81 - Bacteremia; B95.62 - Methicillin resistant Staphylococcus aureus infection as the cause of diseases classified elsewhere Status: Acute Assessment and Plan: Treatment per Dr. Borck. Transthoracic echo did not show any obvious vegetations. Dr. Brock does not see a need for ANNA at this point. (4) HTN (hypertension): Qualifiers: Hypertension type: essential hypertension Qualified Code(s): I10 - Essential (primary) hypertension Code(s): I10 - Essential (primary) hypertension Status: Chronic Assessment and Plan: On home clonidine, hydralazine and metoprolol as well as esmolol amlodipine has not yet been resumed (5) Sepsis: Qualifiers: Sepsis type: methicillin resistant Staphylococcus aureus Sepsis acute organ dysfunction status: unspecified Qualified Code(s): A41.02 - Sepsis due to Methicillin resistant Staphylococcus aureus Code(s): A41.9 - Sepsis, unspecified organism Status: Acute Subjective Date/time seen: 09/13/19 19:07 Interval history: FU A fib RVR, staph bacteremia. Date of SeRvice: 09/13/2019 Patient remains on BiPAP, 50% O2, off Levophed. Cardizem was changed to esmolol and patient subsequently has converted to sinus rhythm. Echo showed EF of 65-70%, no obvious vegetations or significant valvular regurgitation. Review of Systems Review of Systems: ROS unobtainable: unobtainable due to mental condition (Patient on BiPAP, and very tired, not able to communicate much.) and unobtainable due to mental status Constitutional: Constitutional: Reports fatigue Cardiovascular: Cardiovascular: Denies chest pain Respiratory: Respiratory: Reports dyspnea Gastrointestinal: Gastrointestinal: Denies abdominal pain Genitourinary: Comments: Delarosa catheter Musculoskeletal: Musculoskeletal: Reports no additional musculoskeletal complaints Integumentary/Breasts: Skin/Breast: Denies rash Neurologic: Reports as per HPI Exam Narrative: Exam Narrative: Obese female, on BiPAP, mildly tachypneic, sound asleep. Const: General: comfortable and no acute distress HENMT: Mouth: Yes moist mucous membranes Resp: Auscultation: crackles and diminished lung sounds Cardio: Rate: regular rate and tachycardic Rhythm: regular rhythm Heart sounds: no murmurs GI: Auscultation: normal bowel sounds Other: Soft and nontender Urinary Catheter: Urinary Catheter: patent and draining and urine clear Skin: General skin exam: normal color Wounds: no wounds Neuro: Other: Unable to access very well. Extrem: Right lower extremity: lower leg (Mild lower extremity edema) Left lower extremity: lower leg (Mild lower extremity edema) Psych: Other: Difficult to arouse Objective Data Vital Signs Vital Signs: Vital Signs - 24 hr 09/12/19 20:00 09/12/19 20:12 09/12/19 22:00 Temperature 98.4 F Pulse Rate 86 94 92 Respiratory Rate 32 H 26 H 28 H Blood Pressure 154/67 H 152/68 H Pulse Oximetry 88 L 96 09/13/19 00:00 09/13/19 01:03 09/13/19 01:08 Temperature 98.4 F Pulse Rate 90 93 Respiratory Rate 30 H 30 H 30 H Blood Pressure 160/70 H Pulse Oximetry 98 95 09/13/19 01:20 09/13/19 02:00 09/13/19 03:30 Temperature Pulse Rate 92 94 96 Respiratory Rate 28 H 33 H 40 H Blood Pressure 164/66 H Pulse Oximetry 96 97 09/13/19 04:00 09/13/19 06:10 09/13/19 08:00 Temperature 99.4 F 99.7 F H Pulse Rate 90 93 90 Res
[2019-09-13] MEDS: hydrALAZINE HCL 20 MG/ML VIAL 10 MG IV PUSH (23:00)
[2019-09-14] VITALS (32 sets, daily range): BP systolic 123–214; BP diastolic 56–89; PULSE 83–112; RESP 22–43; TEMP 37.1–38.4; O2SAT 90–100
[2019-09-14] MEDS: IPRATROPIUM BR 0.02% INH SOLN 0.5 MG/2.5 ML VIAL INHALATION ×4 (03:04→20:48)
[2019-09-14] MEDS: ALBUTEROL SULFATE NEB 2.5 MG/0.5 ML INH 5 MG INHALATION ×4 (03:04→20:48)
[2019-09-14 03:40] LABS: Hematocrit 24.7 % (37.0-47.0); Hemoglobin 7.7 g/dL (12.0-15.0); Mean Corpuscular HGB Conc 31.2 g/dl (32-36); Mean Corpuscular Hemoglobin 26.3 pg (26-34); Mean Corpuscular Volume 84.3 fl (80-100); Mean Platelet Volume 10.5 fl (7.4-10.4); Platelet Count Result 227 k/mm3 (150-375); Red Blood Count 2.93 M/mm3 (4.2-5.4); Red Cell Distribution Width 16.2 % (11.5-14.5); White Blood Count 24.3 K/mm3 (4.5-10.0)
[2019-09-14 03:43] LABS: Lactic Acid 0.8 mmol/L (0.7-2.1)
[2019-09-14 03:44] LABS: Blood Urea Nitrogen 7 mg/dL (7-17); Calcium 7.5 mg/dL (8.4-10.2); Carbon Dioxide 26 mmol/L (22-30); Chloride 91 mmol/L (98-107); Estimated CRCL calculation 94 ml/min; Estimated Glomerular Filt Rate > 60; Glucose 93 mg/dL (65-105); Magnesium 1.8 mg/dL (1.6-2.3); Phosphorus 3.1 mg/dL (2.5-4.5); Potassium 3.5 mmol/L (3.4-5.0); Sodium 127 mmol/L (137-145)
[2019-09-14 04:58] LABS: Alveolar/Arterial O2 Gradient 170.4 mmHg; Base Excess ABG -0.3 mEq/l (+/-2.0); Carboxyhemoglobin 0.3 % THb (0-2.0); Fractional Inspired Oxygen 40 %; HCO3 ABG 23.7 mEq/l (22.0-26.0); Methemoglobin ABG 0.4 %THb (0-1.5); Oxygen Content ABG 11.4 %vol (16.0-22.0); Oxygen Saturation ABG 95.3 % (95.0-100.0); Oxyhemoglobin 93.5 % THb (90.0-100.0); PO2 ABG 73.4 mmHg (80.0-100.0); PO2 FiO2 Ratio Arterial Blood 1.84 %; Reduced Hemoglobin 5.8 %THb (0-5.0); Total Hemoglobin 8.6 g/dL (12.0-18.0); pH ABG 7.436 (7.350-7.450)
[2019-09-14 05:02] LABS: Device BIPAP; Modified Allen's Test Pass; Site Drawn RIGHT RADIAL
[2019-09-14 05:03] LABS: Expiratory Pressure 8 cmH2O; Inspiratory Pressure 14 cmH2O
[2019-09-14] MEDS: hydrALAZINE HCL 20 MG/ML VIAL 10 MG IV PUSH ×2 (06:33→17:51)
[2019-09-14] MEDS: LORAZEPAM INJ 2 MG/ML VIAL 0.5 MG IV PUSH ×3 (06:34→20:11)
[2019-09-14] MEDS: DORNASE ALFA INH SOLN 1 MG/ML 2.5 ML AMP 2.5 MG INHALATION ×2 (08:25→20:48)
[2019-09-14] MEDS: ENOXAPARIN 120 MG/0.8 ML SYRINGE 115 MG SUB-Q ×2 (08:51→20:10)
[2019-09-14] MEDS: FAMCICLOVIR 250 MG TABLET PO ×2 (08:52→20:11)
[2019-09-14] MEDS: FLUTICASONE PROPIONATE 0.05% NA SPR 16 GM BTL (*BKC) 2 SPRAY NASAL (08:52)
[2019-09-14] MEDS: MUPIROCIN 2% OINT 22 GM TUBE 1 APPLIC EACH NARE ×2 (08:53→20:11)
[2019-09-14] MEDS: LIDOCAINE 5% PATCH 1 PATCH TOPICAL (08:53)
[2019-09-14] MEDS: LORATADINE 10 MG TABLET PO (08:53)
[2019-09-14] MEDS: PANTOPRAZOLE SODIUM IV 40 MG VIAL IV PUSH (08:54)
[2019-09-14] MEDS: PRIMIDONE 50 MG TABLET PO (08:55)
[2019-09-14] MEDS: FUROSEMIDE INJ 100 MG/10 ML VIAL 80 MG IV PUSH (10:40)
--- NOTE | 2019-09-14 11:10 | PCDIET ---
ICU Rounding Note: Patient on clear liquid, heart healthy diet. Taking sips to keep mouth moistened, but intake limited due to bipap requirement. Patient does not desire intubation or hospice care. +Edema. MD ordering Lasix and may initiate TPN at half goal rate due to inability to start significant oral or enteral feedings at this time (patient essentially on day 6 of NPO/clear liquid diet). Recommended Clinimix E at 30mL/hr with 250mL 20% lipid for 1011kcal and 36g protein daily. If able to tolerate higher fluid volume, recommend goal of 60mL/hr for 1522kcal and 72g protein. Last recorded weight is 117.8kg which is increased. +I/O. Bowel Motility: +BM today. Labs Reviewed: Cr (0.6), Ca (7.5), Na (127), Hgb (7.7), Hct (24.7) Meds Noted: Albuterol, Protonix, Senokot, Vancomycin, s/p Lasix Additional Notes: Left lower leg incision with dressing. No reported pressure ulcers. Following daily in ICU rounds. Assessing/reassessing every 3 days.
--- NOTE | 2019-09-14 13:04 | WPDINTPN ---
Progress Note: A&P Assessment and Plan (1) Atrial fibrillation with RVR: Code(s): I48.91 - Unspecified atrial fibrillation Status: Acute Assessment and Plan: patient started esmolol infusion yesterday since Cardizem was not helping a atrial fibrillation RVR. - lower extremity Dopplers negative for DVT - on esmolol infusion, converted to sinus rhythm, rate controlled - continue therapeutic Lovenox (2) MRSA bacteremia: Code(s): R78.81 - Bacteremia; B95.62 - Methicillin resistant Staphylococcus aureus infection as the cause of diseases classified elsewhere Status: Acute Assessment and Plan: MRSA bacteremia: continue vancomycin per Infectious Disease team - 09/11/2027 repeat blood cultures growing MRSA 2/2 bottles, - echocardiogram 09/09/2019, hyperdynamic LV systolic function with EF of 65-70%, mild aortic valve sclerosis, trace mitral valve regurg. Grade 1 diastolic dysfunction - appreciate infectious disease evaluation and recommendation - may require ANNA at some point (3) Sepsis: Qualifiers: Sepsis type: methicillin resistant Staphylococcus aureus Sepsis acute organ dysfunction status: unspecified Qualified Code(s): A41.02 - Sepsis due to Methicillin resistant Staphylococcus aureus Code(s): A41.9 - Sepsis, unspecified organism Status: Acute Assessment and Plan: patient initially presented with septic shock on 09/10/2019. was on pressor support very briefly. Currently hypertensive. Worsening leukocytosis - chest x-ray shows multifocal worsening pneumonia - blood cultures 09/09/2019 growing MRSA, repeat culture cultures 09/11/2019 MRSA 2/2 bottles - (4) Acute respiratory failure: Qualifiers: Respiratory failure complication: hypoxia Qualified Code(s): J96.01 - Acute respiratory failure with hypoxia Code(s): J96.00 - Acute respiratory failure, unspecified whether with hypoxia or hypercapnia Status: Acute Assessment and Plan: acute respiratory failure secondary to pneumonia, patient currently on BiPAP and tolerating. Currently on 60% FiO2, 14/8 BiPAP settings. discussed with patient running intubation to which she refused not only to me but also when the bedside RN and asked her she stated she does not want to be intubated and does not want to be on a mechanical ventilation. Patient also does not want CPR - continue antibiotics per Infectious Diseasee - chest x-ray and ABGs reviewed (5) HCAP (healthcare-associated pneumonia): Code(s): J18.9 - Pneumonia, unspecified organism Status: Acute Assessment and Plan: antibiotics as above for pneumonia, sputum culture was an inadequate specimen (6) Hypomagnesemia: Code(s): E83.42 - Hypomagnesemia Status: Acute Assessment and Plan: resolved (7) HTN (hypertension): Qualifiers: Hypertension type: essential hypertension Qualified Code(s): I10 - Essential (primary) hypertension Code(s): I10 - Essential (primary) hypertension Status: Chronic Assessment and Plan: patient with history of essential hypertension on multiple home medications - esmolol infusion also controlling blood pressures (8) Anxiety: Code(s): F41.9 - Anxiety disorder, unspecified Status: Chronic Assessment and Plan: on lorazepam p.r.n. anxiety (9) History of seizure: Code(s): Z87.898 - Personal history of other specified conditions Status: Acute Assessment and Plan: continue primidone (10) DVT prophylaxis: Code(s): Z29.9 - Encounter for prophylactic measures, unspecified Status: Acute Assessment and Plan: enoxaparin SQ Additional Plan discussed with patient and updated her with her condition and plan of care. when I discussed with her regarding intubation and CPR she said she does not want to be intubated or have CPR done. patient does not want hospice
--- NOTE | 2019-09-14 13:33 | WPDINFPN2 ---
Progress Note: A&P Assessment and Plan (1) MRSA bacteremia: Code(s): R78.81 - Bacteremia; B95.62 - Methicillin resistant Staphylococcus aureus infection as the cause of diseases classified elsewhere Status: Acute Assessment and Plan: 1. MRSA bacteremia with infection, lung source. Less likely source: IE, L leg soft tissue or bone infection, skin infection elsewhere, upper respiratory, other endovascular. WBC is back down 2. Recent (06/28) compound fracture L tibia, ORIF 3. L TKA REC Vanc #6, continue. Target trough 15-20. Redo BCs AM. Subjective Date/time seen: 09/14/19 13:33 Interval history: confused on PPV. R IJ CVC in place. No pressors Exam Narrative: Exam Narrative: t max 38.4 core Const: General: in distress Eyes: General: appearance normal, both eyes and all related structures Resp: Effort & Inspection: normal respiratory effort Auscultation: clear to auscultation bilaterally Cardio: Rate: regular rate Rhythm: regular rhythm Heart sounds: no gallops and no murmurs GI: Inspection: non-distended GI Palp: Yes Soft to palpation and No Tenderness to palpation present (GI) Urinary Catheter: Urinary Catheter: patent and draining and urine clear Objective Data Vital Signs Vital Signs: Vital Signs - 24 hr 09/13/19 14:00 09/13/19 14:13 09/13/19 14:23 Temperature Pulse Rate 91 91 95 Respiratory Rate 35 H 36 H 33 H Blood Pressure 172/76 H Pulse Oximetry 95 99 09/13/19 16:00 09/13/19 17:06 09/13/19 18:00 Temperature 38.1 C H 38.1 C H Pulse Rate 107 H 107 H Respiratory Rate 35 H 34 H Blood Pressure 179/66 H 147/73 H Pulse Oximetry 89 L 92 09/13/19 18:06 09/13/19 18:11 09/13/19 20:00 Temperature 37.5 C 37.1 C Pulse Rate 101 H 97 Respiratory Rate 36 H 30 H Blood Pressure 141/68 H Pulse Oximetry 96 93 09/13/19 20:55 09/13/19 21:04 09/13/19 22:00 Temperature Pulse Rate 97 100 94 Respiratory Rate 35 H 24 H 27 H Blood Pressure 161/79 H Pulse Oximetry 95 93 09/13/19 23:18 09/14/19 00:00 09/14/19 02:00 Temperature 37.1 C Pulse Rate 99 96 96 Respiratory Rate 30 H 34 H 42 H Blood Pressure 159/71 H 162/70 H Pulse Oximetry 96 91 90 09/14/19 03:05 09/14/19 03:07 09/14/19 03:11 Temperature Pulse Rate 97 99 100 Respiratory Rate 39 H 39 H 38 H Blood Pressure Pulse Oximetry 94 09/14/19 04:00 09/14/19 04:35 09/14/19 06:00 Temperature 37.1 C Pulse Rate 95 99 92 Respiratory Rate 34 H 41 H 37 H Blood Pressure 172/69 H 169/70 H Pulse Oximetry 94 95 94 09/14/19 08:00 09/14/19 08:25 09/14/19 08:26 Temperature 38.4 C H Pulse Rate 91 91 91 Respiratory Rate 40 H 43 H 41 H Blood Pressure 175/62 H Pulse Oximetry 95 94 09/14/19 08:56 09/14/19 10:00 Temperature 38.4 C H Pulse Rate 95 Respiratory Rate 31 H Blood Pressure 160/56 H Pulse Oximetry 96 Intake/Output Intake/Output: Intake & Output 09/11/19 09/12/19 09/13/19 09/14/19 23:59 23:59 23:59 23:59 Intake Total 2468 972 1650 1340 Output Total 2225 2000 1450 800 Balance 243 -1028 200 540 Meds/Results Medications: Active Medications Generic Name Dose Route Start Last Admin Trade Name Freq PRN Reason Stop Dose Admin Albuterol 5 mg 09/09/19 20:00 09/14/19 08:24 Albuterol Sulf Neb 2.5mg/0.5ml INHALATION 5 mg Q6HRT KELIN Administration Clonidine HCl 0.2 mg 09/11/19 09:00 09/11/19 20:23 Catapres PO 0.2 mg Q12HR KELIN Administration Dornase Harjeet 2.5 mg 09/11/19 20:00 09/14/19 08:25 Pulmozyme INHALATION 2.5 mg Q12HRT KELIN Administration Enoxaparin Sodium 115 mg 09/12/19 18:00 09/14/19 08:51 Lovenox SUB-Q 115 mg Q12HR KELIN Administration Famciclovir 250 mg 09/09/19 21:00 09/14/19 08:52 Famvir PO 250 mg Q12HR KELIN Administration Fluticasone Propionate 2 spray 09/10/19 09:00 09/14/19 08:52 Flonase 0.05% Nasal [place] NASAL 2 spray DAILY KELIN Administration Guaifenesin 1,200 mg 09/11/19 09:0
--- NOTE | 2019-09-14 15:02 | PM.PNCARD ---
Progress Note: A&P Assessment and Plan (1) Atrial fibrillation with RVR: Code(s): I48.91 - Unspecified atrial fibrillation Status: Acute Assessment and Plan: Converted to normal sinus rhythm with esmolol. Rate nicely controlled. Will stop drip and change to 5 mg of Metoprolol tartrate IV push every 4 hours. Anticoagulated with Lovenox (2) Acute and chronic respiratory failure: Code(s): J96.20 - Acute and chronic respiratory failure, unspecified whether with hypoxia or hypercapnia Status: Acute Assessment and Plan: On BiPAP, 50% FiO2 Desats immediately when BiPAP removed. Given some diuretics today. (3) MRSA bacteremia: Code(s): R78.81 - Bacteremia; B95.62 - Methicillin resistant Staphylococcus aureus infection as the cause of diseases classified elsewhere Status: Acute Assessment and Plan: Treatment per Dr. Brock. Transthoracic echo did not show any obvious vegetations. Dr. Brock does not see a need for ANNA at this point. (4) HTN (hypertension): Qualifiers: Hypertension type: essential hypertension Qualified Code(s): I10 - Essential (primary) hypertension Code(s): I10 - Essential (primary) hypertension Status: Chronic Assessment and Plan: Home clonidine, hydralazine and metoprolol are on hold. Amlodipine was not started on admission. At this time will use Metoprolol tartrate 5 mg q.4 hours IV push as well as p.r.n. hydralazine to manage her blood pressure. (5) Sepsis: Qualifiers: Sepsis type: methicillin resistant Staphylococcus aureus Sepsis acute organ dysfunction status: unspecified Qualified Code(s): A41.02 - Sepsis due to Methicillin resistant Staphylococcus aureus Code(s): A41.9 - Sepsis, unspecified organism Status: Acute Assessment and Plan: Management per and doctor's assistant. Additional Plan Plan discussed Dr. Read 1530 09/14/2019 Time Spent With Patient Time with patient: less than 15 minutes Subjective Date/time seen: 09/14/19 15:03 Interval history: Follow-up for: Atrial fibrillation with rapid ventricular response-converted normal sinus rhythm. Staph bacteremia Date of Service: 09/14/2019 Subjective: Remains on BiPAP. Easily arousable. Does have some back discomfort. States breathing is ?okay?. Review of Systems Review of Systems: ROS unobtainable: unobtainable due to mental condition (On BiPAP. Very tired, not able to communicate much.) and unobtainable due to mental status Exam Narrative: Exam Narrative: On BiPAP. Mildly tachypneic. Arouses easily. Const: General: comfortable and no acute distress HENMT: Head: normocephalic and atraumatic Ears: hearing grossly normal bilaterally and external ears normal General nose exam: Normal external nose present and no epistaxis Face and sinus: normal facial exam and no ecchymosis Mouth: Yes tongue normal and Yes moist mucous membranes Eyes: Conjunctivae: conjunctivae normal Sclera: sclerae normal Pupils: Equal, round and reactive pupils present EOM: EOMs intact bilaterally Neck: Neck: normal visual inspection, supple and no JVD Resp: Effort & Inspection: normal respiratory effort and able to speak in complete sentences Auscultation: crackles bilateral at the base and diminished lung sounds Cardio: Jugular venous distension: no JVD Rate: regular rate Rhythm: regular rhythm Heart sounds: no murmurs Peripheral pulses: Peripheral pulses 2+ throughout GI: Inspection: normal to inspection GI Palp: Yes Soft to palpation and No Tenderness to palpation present (GI) Auscultation: normal bowel sounds Urinary Catheter: Urinary Catheter: patent and draining and urine clear Skin: General skin exam: normal color Wounds: no wounds Other: Neuro: Cranial nerves: Yes carlos Patterson
--- NOTE | 2019-09-14 15:42 | PM.IMPN ---
Progress Note: A&P Assessment and Plan (1) Atrial fibrillation with RVR: Code(s): I48.91 - Unspecified atrial fibrillation Status: Acute Assessment and Plan: Patient devloped AFib/RVR on 09/11/19 and placed on Diltiazem drip. HR still not well controlled. Esmolol drip started and patient moved to ICU on 09/12. Echo 65% EF with diastolic dysfunction. Therapeutic Lovenox started. Doppler negative for DVT. Patient converted to NSR on 09/12. Patient off Diltiazem drip and being weaned off esmolol drip. Appreciate Cardiology input. (2) Acute and chronic respiratory failure: Code(s): J96.20 - Acute and chronic respiratory failure, unspecified whether with hypoxia or hypercapnia Status: Acute Assessment and Plan: Result of pneumonia and AFib/RVR. Had to go back on BiPAP and moved to the ICU. Good diuresis. Hopefully this fabiana help with weaning off the BiPAP. Continue IV antibiotics. Continue nebulizer treatments. Will continue to monitor. Appreciate electronic bench technician input. (3) Septic shock: Code(s): A41.9 - Sepsis, unspecified organism; R65.21 - Severe sepsis with septic shock Status: Acute Assessment and Plan: Criteria met on admission. Result of pneumonia. Was only on Levophed for short period of time on admission. Blood cultures (2of2) positive for MRSA. Repeat BCx also MRSA positive. Echo not showing any suspicious valvular lesions. Appreciate ID input. Repeat BCx. (4) HCAP (healthcare-associated pneumonia): Code(s): J18.9 - Pneumonia, unspecified organism Status: Acute Assessment and Plan: MRSA PNA. Having fevers again. Chest x-ray worsening but could be pulmonary edema. Lasix started with good UOP. Continue IV Vancomycin. (5) HTN (hypertension): Qualifiers: Hypertension type: essential hypertension Qualified Code(s): I10 - Essential (primary) hypertension Code(s): I10 - Essential (primary) hypertension Status: Chronic Assessment and Plan: Blood pressure reviewed on 09/14/19. BP elevated at times. Metoprolol, hydralazine and clonidine on hold. Diltiazem drip off. Weaning off esmolol. Continue to monitor. (6) Hypomagnesemia: Code(s): E83.42 - Hypomagnesemia Status: Acute Assessment and Plan: Magnesium remains normal range. Continue to monitor and replace as needed. (7) Anemia: Qualifiers: Anemia type: unspecified type Qualified Code(s): D64.9 - Anemia, unspecified Code(s): D64.9 - Anemia, unspecified Status: Chronic Assessment and Plan: Hemoglobin low but stable at 7-8 range. No active sign of bleeding. Will monitor while on Lovenox. (8) Chronic hyponatremia: Code(s): E87.1 - Hypo-osmolality and hyponatremia Status: Acute Assessment and Plan: Sodium still low but stable at 127. Will continue to follow. Check Urine Na (9) HLD (hyperlipidemia): Qualifiers: Hyperlipidemia type: unspecified Qualified Code(s): E78.5 - Hyperlipidemia, unspecified Code(s): E78.5 - Hyperlipidemia, unspecified Status: Chronic Assessment and Plan: LFTs normal. Atorvastatin on hold. (10) Anxiety: Code(s): F41.9 - Anxiety disorder, unspecified Status: Chronic Assessment and Plan: Not on buspirone at home. Had been started on admission but discontinued. Patient states she does not want buspirone. Does have IV lorazepam available as needed. (11) DVT prophylaxis: Code(s): Z29.9 - Encounter for prophylactic measures, unspecified Status: Acute Assessment and Plan: Theraputic Lovenox Subjective Date/time seen: 09/14/19 15:42 Interval history: 68yo female here for septic shock from HCAP. Patient has had a recent left tibia/left ankle fractures with repair. Weaned off BiPAP and was doing well until developed new onset AFib/RVR on the even
[2019-09-14] MEDS: METOPROLOL TARTRATE INJ 5 MG/5 ML VIAL IV PUSH ×3 (16:34→23:48)
[2019-09-14] MEDS: FUROSEMIDE INJ 40 MG/4 ML VIAL IV PUSH (20:09)
[2019-09-14 21:35] LABS: Creatinine Urine 18.4 mg/dL
[2019-09-14 21:36] LABS: Sodium Urine Random 94 meq/L
[2019-09-15] VITALS (29 sets, daily range): BP systolic 136–177; BP diastolic 58–74; PULSE 94–119; RESP 23–45; TEMP 37.2–37.5; O2SAT 92–100
[2019-09-15] MEDS: ALBUTEROL SULFATE NEB 2.5 MG/0.5 ML INH 5 MG INHALATION ×4 (02:00→20:09)
[2019-09-15] MEDS: IPRATROPIUM BR 0.02% INH SOLN 0.5 MG/2.5 ML VIAL INHALATION ×4 (02:00→20:09)
[2019-09-15] MEDS: LORAZEPAM INJ 2 MG/ML VIAL 0.5 MG IV PUSH ×4 (02:30→19:47)
[2019-09-15] MEDS: METOPROLOL TARTRATE INJ 5 MG/5 ML VIAL IV PUSH ×6 (03:13→23:44)
[2019-09-15 03:33] LABS: Hemoglobin 7.6 g/dL (12.0-15.0); Mean Corpuscular HGB Conc 31.7 g/dl (32-36); Mean Corpuscular Hemoglobin 26.4 pg (26-34); Mean Corpuscular Volume 83.3 fl (80-100); Mean Platelet Volume 10.1 fl (7.4-10.4); Platelet Count Result 223 k/mm3 (150-375); Red Blood Count 2.88 M/mm3 (4.2-5.4); White Blood Count 21.5 K/mm3 (4.5-10.0)
[2019-09-15 03:44] LABS: Lactic Acid 0.9 mmol/L (0.7-2.1)
[2019-09-15 03:49] LABS: Blood Urea Nitrogen 7 mg/dL (7-17); Calcium 7.6 mg/dL (8.4-10.2); Carbon Dioxide 31 mmol/L (22-30); Chloride 87 mmol/L (98-107); Estimated CRCL calculation 96 ml/min; Estimated Glomerular Filt Rate > 60; Glucose 99 mg/dL (65-105); Magnesium 1.4 mg/dL (1.6-2.3); Phosphorus 3.2 mg/dL (2.5-4.5); Potassium 2.6 mmol/L (3.4-5.0); Sodium 128 mmol/L (137-145)
[2019-09-15] MEDS: hydrALAZINE HCL 20 MG/ML VIAL 10 MG IV PUSH (04:41)
[2019-09-15] MEDS: POTASSIUM CHLORIDE 20 MEQ TABLET 40 MEQ PO (04:41)
[2019-09-15 05:03] LABS: Alveolar/Arterial O2 Gradient 125.8 mmHg; Base Excess ABG 4.1 mEq/l (+/-2.0); Carboxyhemoglobin 0.3 % THb (0-2.0); Fractional Inspired Oxygen 35 %; HCO3 ABG 27.5 mEq/l (22.0-26.0); Methemoglobin ABG 0.6 %THb (0-1.5); Oxygen Content ABG 11.7 %vol (16.0-22.0); Oxygen Saturation ABG 96.8 % (95.0-100.0); Oxyhemoglobin 94.7 % THb (90.0-100.0); PCO2 ABG 36.5 mmHg (35.0-45.0); PO2 ABG 81.3 mmHg (80.0-100.0); PO2 FiO2 Ratio Arterial Blood 2.32 %; Reduced Hemoglobin 4.4 %THb (0-5.0); Total Hemoglobin 8.7 g/dL (12.0-18.0); pH ABG 7.495 (7.350-7.450)
[2019-09-15 05:05] LABS: Device BIPAP; Expiratory Pressure 8 cmH2O; Inspiratory Pressure 14 cmH2O; Modified Allen's Test Pass; Site Drawn LEFT RADIAL
[2019-09-15] MEDS: MAGNESIUM SULF 4 GM/WATER100ML 4 GM/100 ML BAG IVPB (05:21)
[2019-09-15] MEDS: DORNASE ALFA INH SOLN 1 MG/ML 2.5 ML AMP 2.5 MG INHALATION ×2 (08:34→20:08)
--- NOTE | 2019-09-15 08:34 | PM.IMPN ---
Progress Note: A&P Assessment and Plan (1) Atrial fibrillation with RVR: Code(s): I48.91 - Unspecified atrial fibrillation Status: Acute Assessment and Plan: Patient devloped AFib/RVR on 09/11/19 and placed on Diltiazem drip. HR still not well controlled. Esmolol drip started and patient moved to ICU on 09/12. Echo 65% EF with diastolic dysfunction. Therapeutic Lovenox started. Doppler negative for DVT. Patient converted to NSR on 09/12. Patient off Diltiazem and esmolol drip. Converted to IV metoprolol. Appreciate Cardiology input. (2) Acute and chronic respiratory failure: Code(s): J96.20 - Acute and chronic respiratory failure, unspecified whether with hypoxia or hypercapnia Status: Acute Assessment and Plan: Result of pneumonia and AFib/RVR. Essentially BiPAP dependent now. Good diuresis but CXR showing similar findings. Hopefully the diuresis will eventually improve her respiratory status but her pulm infiltrates could be from the PNA. Wean BiPAP as tolerated. Continue IV antibiotics. Continue nebulizer treatments. Will continue to monitor. Appreciate publications editor input. (3) Septic shock: Code(s): A41.9 - Sepsis, unspecified organism; R65.21 - Severe sepsis with septic shock Status: Acute Assessment and Plan: Criteria met on admission. Result of pneumonia. Was only on Levophed for short period of time on admission. Blood cultures (2of2) positive for MRSA. Repeat BCx (2of2) also MRSA positive. Echo not showing any suspicious valvular lesions. Source from leg fracture? Repeat BCx pending. Appreciate ID input. Consider CT scan of the left leg when stable. (4) HCAP (healthcare-associated pneumonia): Code(s): J18.9 - Pneumonia, unspecified organism Status: Acute Assessment and Plan: MRSA PNA. Fevers resolved now. Chest x-ray showing persistent pulmonary infiltrates. ARDS? Discussed with publications editor. Continue Lasix. Continue IV Vancomycin. (5) HTN (hypertension): Qualifiers: Hypertension type: essential hypertension Qualified Code(s): I10 - Essential (primary) hypertension Code(s): I10 - Essential (primary) hypertension Status: Chronic Assessment and Plan: Blood pressure reviewed on 09/15/19. BP more elevated. Metoprolol oral, hydralazine and clonidine on hold. Changed to Metoprolol IV scheduled. Continue to monitor. (6) Hypomagnesemia: Code(s): E83.42 - Hypomagnesemia Status: Acute Assessment and Plan: Magnesium 1.4 today with replacement ordered. Continue to monitor and replace as needed. (7) Anemia: Qualifiers: Anemia type: unspecified type Qualified Code(s): D64.9 - Anemia, unspecified Code(s): D64.9 - Anemia, unspecified Status: Chronic Assessment and Plan: Hemoglobin low but stable at 7-8 range. No active sign of bleeding. Will monitor closely while on Lovenox. (8) Chronic hyponatremia: Code(s): E87.1 - Hypo-osmolality and hyponatremia Status: Acute Assessment and Plan: Sodium still low but stable at 128. Yana 94. Probably related to the difuse edema. Continue to follow (9) HLD (hyperlipidemia): Qualifiers: Hyperlipidemia type: unspecified Qualified Code(s): E78.5 - Hyperlipidemia, unspecified Code(s): E78.5 - Hyperlipidemia, unspecified Status: Chronic Assessment and Plan: LFTs normal. Resume atorvastatin. (10) Anxiety: Code(s): F41.9 - Anxiety disorder, unspecified Status: Chronic Assessment and Plan: Not on buspirone at home. Had been started on admission but discontinued. Patient states she does not want buspirone. Does have IV lorazepam available as needed. (11) DVT prophylaxis: Code(s): Z29.9 - Encounter for prophylactic measures, unspecified Status: Acute Assessment and Plan: Still on thera
[2019-09-15] MEDS: FUROSEMIDE INJ 40 MG/4 ML VIAL IV PUSH ×2 (09:18→21:36)
[2019-09-15] MEDS: FLUTICASONE PROPIONATE 0.05% NA SPR 16 GM BTL (*BKC) 2 SPRAY NASAL (09:20)
[2019-09-15] MEDS: PANTOPRAZOLE SODIUM IV 40 MG VIAL IV PUSH (09:20)
[2019-09-15] MEDS: PRIMIDONE 50 MG TABLET PO ×2 (09:21→17:28)
[2019-09-15] MEDS: LIDOCAINE 5% PATCH 1 PATCH TOPICAL (09:21)
[2019-09-15] MEDS: MUPIROCIN 2% OINT 22 GM TUBE 1 APPLIC EACH NARE ×2 (09:21→21:37)
[2019-09-15] MEDS: FAMCICLOVIR 250 MG TABLET PO ×2 (09:21→21:36)
[2019-09-15] MEDS: ENOXAPARIN 120 MG/0.8 ML SYRINGE 115 MG SUB-Q ×2 (09:22→21:36)
[2019-09-15] MEDS: LORATADINE 10 MG TABLET PO (09:23)
--- NOTE | 2019-09-15 11:40 | PCDIET ---
Nutrition Follow-Up Complete: Nutrition Diagnosis: Inadequate oral intake related to respiratory failure as evidenced by NPO/clear liquid diet since admission Nutrition Goal: Patient to meet estimated nutritional needs. Goal not met. Patient remains on bipap and does not want intubation at this time. Family will be coming in today to help patient with decision making process. In mean time, MD plans to start low rate TPN since oral intake has been minimal and NG feeding not ideal for patient on bipap. Recommend Clinimix E at 30mL/hr with 250mL 20% lipids for 1011kcal and 36g protein. Ultimate goal would be 60mL/hr with 250mL 20% lipids for 1522kcal and 72g protein. Last recorded weight is 113.9 kg which is decreased. I/O negative. Bowel Motility: BM x 1 today. Labs Reviewed: Cr (0.6), Na (127), Ca (7.5), Hgb (7.7), Hct (24.7) Meds Noted: Lasix, Protonix, Senna, Vancomycin Additional Notes: s/p KCl and magnesium sulfate; no documented pressure sores. Nutrition Monitoring and Evaluation: Follow up every Wednesday/Wednesday. Follow daily in ICU rounds.
--- NOTE | 2019-09-15 11:49 | WPDINTPN ---
Progress Note: A&P Assessment and Plan (1) Atrial fibrillation with RVR: Code(s): I48.91 - Unspecified atrial fibrillation Status: Acute Assessment and Plan: patient started esmolol infusion yesterday since Cardizem was not helping a atrial fibrillation RVR. - lower extremity Dopplers negative for DVT - Patient in sinus tachycardia, on metoprolol - continue therapeutic Lovenox (2) MRSA bacteremia: Code(s): R78.81 - Bacteremia; B95.62 - Methicillin resistant Staphylococcus aureus infection as the cause of diseases classified elsewhere Status: Acute Assessment and Plan: MRSA bacteremia: continue vancomycin per Infectious Disease team - 09/11/2027 repeat blood cultures growing MRSA 2/2 bottles, - echocardiogram 09/09/2019, hyperdynamic LV systolic function with EF of 65-70%, mild aortic valve sclerosis, trace mitral valve regurg. Grade 1 diastolic dysfunction - appreciate infectious disease evaluation and recommendation - may require ANNA at some point (3) Sepsis: Qualifiers: Sepsis type: methicillin resistant Staphylococcus aureus Sepsis acute organ dysfunction status: unspecified Qualified Code(s): A41.02 - Sepsis due to Methicillin resistant Staphylococcus aureus Code(s): A41.9 - Sepsis, unspecified organism Status: Acute Assessment and Plan: patient initially presented with septic shock on 09/10/2019. was on pressor support very briefly. Currently hypertensive. leukocytosis improved - blood cultures 09/09/2019 growing MRSA, repeat culture cultures 09/11/2019 MRSA 2/2 bottles - continue vancomycin per ID (4) Acute respiratory failure: Qualifiers: Respiratory failure complication: hypoxia Qualified Code(s): J96.01 - Acute respiratory failure with hypoxia Code(s): J96.00 - Acute respiratory failure, unspecified whether with hypoxia or hypercapnia Status: Acute Assessment and Plan: acute respiratory failure secondary to pneumonia, patient currently on BiPAP and tolerating. Currently on 35% FiO2, 14/8 BiPAP settings. discussed with patient running intubation to which she refused not only to me but also when the bedside RN and asked her she stated she does not want to be intubated and does not want to be on a mechanical ventilation. Patient also does not want CPR - continue antibiotics per Infectious Diseasee - chest x-ray with improvement - continue diuresis (5) HCAP (healthcare-associated pneumonia): Code(s): J18.9 - Pneumonia, unspecified organism Status: Acute Assessment and Plan: antibiotics as above for pneumonia, sputum culture was an inadequate specimen (6) Hypomagnesemia: Code(s): E83.42 - Hypomagnesemia Status: Acute Assessment and Plan: resolved (7) HTN (hypertension): Qualifiers: Hypertension type: essential hypertension Qualified Code(s): I10 - Essential (primary) hypertension Code(s): I10 - Essential (primary) hypertension Status: Chronic Assessment and Plan: patient with history of essential hypertension on multiple home medications - continue metoprolol per Cardiology (8) Anxiety: Code(s): F41.9 - Anxiety disorder, unspecified Status: Chronic Assessment and Plan: on lorazepam p.r.n. anxiety (9) History of seizure: Code(s): Z87.898 - Personal history of other specified conditions Status: Acute Assessment and Plan: continue primidone (10) DVT prophylaxis: Code(s): Z29.9 - Encounter for prophylactic measures, unspecified Status: Acute Assessment and Plan: enoxaparin SQ Additional Plan D/w Yesica (Martina) Rashaun Daughter, who is the POA for healthcare. Her cell number a is [phone] and [phone]. Patient's name is Obed Rodney, his cell number is [phone]. the daughter stated she is coming to [facility]
--- NOTE | 2019-09-15 14:12 | PCDIET ---
Routine TPN consult received. ordered Clinimix E at 30mL/hr with 250mL 20% lipids as previously recommended.
[2019-09-15] MEDS: FAT EMULSIONS IV 20% 250 ML 20.8 ML IVPB (15:17)
--- NOTE | 2019-09-15 15:25 | WPDINFPN2 ---
Progress Note: A&P Assessment and Plan (1) MRSA bacteremia: Code(s): R78.81 - Bacteremia; B95.62 - Methicillin resistant Staphylococcus aureus infection as the cause of diseases classified elsewhere Status: Acute Assessment and Plan: 1. MRSA bacteremia with infection, lung source. Less likely source: IE, L leg soft tissue or bone infection, skin infection elsewhere, upper respiratory, other endovascular. WBC is slightly lower, has defervesced 2. Recent (06/28) compound fracture L tibia, ORIF, no infection 3. L TKA REC Vanc #7, continue. Target trough 15-20. Redo BCs ng after short incubation. Anticipate prolonged -- 6 weeks -- IV rx. Subjective Date/time seen: 09/15/19 15:25 Interval history: lethargic, offers no complaints Exam Narrative: Exam Narrative: afebrile since last visit Const: General: no acute distress Eyes: General: appearance normal, both eyes and all related structures Neck: Neck: supple Other: CVC site R IJ normal on inspection and palpation Resp: Effort & Inspection: normal respiratory effort Auscultation: clear to auscultation bilaterally and diminished lung sounds Other: on PPV Cardio: Rate: tachycardic Heart sounds: no murmurs GI: Inspection: non-distended GI Palp: Yes Soft to palpation and No Tenderness to palpation present (GI) Urinary Catheter: Urinary Catheter: patent and draining and urine clear Objective Data Vital Signs Vital Signs: Vital Signs - 24 hr 09/14/19 16:00 09/14/19 16:34 09/14/19 16:53 Temperature 37.4 C Pulse Rate 100 101 H 93 Respiratory Rate 27 H Blood Pressure 190/77 H Pulse Oximetry 99 09/14/19 18:00 09/14/19 19:41 09/14/19 20:00 Temperature 37.2 C 37.1 C Pulse Rate 99 107 H Respiratory Rate 22 H 29 H Blood Pressure 214/89 H 154/59 H Pulse Oximetry 93 100 09/14/19 20:18 09/14/19 20:49 09/14/19 20:59 Temperature Pulse Rate 112 H 98 103 H Respiratory Rate 27 H 30 H Blood Pressure Pulse Oximetry 99 09/14/19 22:00 09/14/19 23:44 09/14/19 23:48 Temperature Pulse Rate 111 H 110 H 109 H Respiratory Rate 26 H 27 H Blood Pressure 164/65 H Pulse Oximetry 96 95 09/15/19 00:00 09/15/19 02:00 09/15/19 02:15 Temperature 37.3 C Pulse Rate 100 99 111 H Respiratory Rate 32 H 23 H 24 H Blood Pressure 167/63 H 177/68 H Pulse Oximetry 92 95 09/15/19 03:13 09/15/19 04:00 09/15/19 04:58 Temperature 37.3 C Pulse Rate 116 H 106 H 112 H Respiratory Rate 36 H 27 H Blood Pressure 161/65 H Pulse Oximetry 95 97 09/15/19 06:00 09/15/19 08:00 09/15/19 08:34 Temperature 37.2 C Pulse Rate 114 H 115 H 118 H Respiratory Rate 42 H 35 H 28 H Blood Pressure 176/64 H 155/70 H Pulse Oximetry 95 94 09/15/19 08:37 09/15/19 08:43 09/15/19 09:25 Temperature Pulse Rate 118 H 118 H 118 H Respiratory Rate 28 H 28 H Blood Pressure Pulse Oximetry 100 09/15/19 10:00 09/15/19 11:56 09/15/19 12:00 Temperature 37.4 C Pulse Rate 106 H 113 H 113 H Respiratory Rate 25 H 37 H 31 H Blood Pressure 164/74 H 163/74 H Pulse Oximetry 98 98 96 09/15/19 14:00 09/15/19 14:16 09/15/19 14:20 Temperature Pulse Rate 110 H 106 H 106 H Respiratory Rate 34 H 33 H 33 H Blood Pressure Pulse Oximetry 97 98 09/15/19 14:24 Temperature Pulse Rate 107 H Respiratory Rate 33 H Blood Pressure Pulse Oximetry Intake/Output Intake/Output: Intake & Output 09/12/19 09/13/19 09/14/19 09/15/19 23:59 23:59 23:59 23:59 Intake Total 972 1650 2240 820 Output Total 2887 2580 4140 [address] [place] [id number] [phone] Meds/Results Medications: Active Medications Generic Name Dose Route Start Last Admin Trade Name Freq PRN Reason Stop Dose Admin Albuterol 5 mg 09/09/19 20:00 09/15/19 14:16 Albuterol Sulf Neb 2.5mg/0.5ml INHALATION 5 mg Q6HRT KELIN Administration Clonidine HCl 0.2 mg 09/11/19 09:00 09/11/19 20:23 Catapres PO 0.2 mg Q12HR KELIN Administration D
--- NOTE | 2019-09-15 16:13 | PM.PNCARD ---
Progress Note: A&P Assessment and Plan (1) Atrial fibrillation with RVR: Code(s): I48.91 - Unspecified atrial fibrillation Status: Acute Assessment and Plan: Converted to normal sinus rhythm with esmolol. Transitioned to Metoprolol IV push q.4 hours yesterday. Now in sinus tachycardia running 100-120 beats per minute. Continue Metoprolol tartrate 5 mg IV push every 4 hours. Anticoagulated with Lovenox (2) Acute and chronic respiratory failure: Code(s): J96.20 - Acute and chronic respiratory failure, unspecified whether with hypoxia or hypercapnia Status: Acute Assessment and Plan: On BiPAP, 50% FiO2 Desats immediately when BiPAP removed. Diuresing again today. (3) MRSA bacteremia: Code(s): R78.81 - Bacteremia; B95.62 - Methicillin resistant Staphylococcus aureus infection as the cause of diseases classified elsewhere Status: Acute Assessment and Plan: Treatment per Dr. Brock. Transthoracic echo did not show any obvious vegetations. Dr. Brock does not see a need for ANNA at this point. (4) HTN (hypertension): Qualifiers: Hypertension type: essential hypertension Qualified Code(s): I10 - Essential (primary) hypertension Code(s): I10 - Essential (primary) hypertension Status: Chronic Assessment and Plan: Home clonidine, hydralazine and metoprolol are on hold. Amlodipine was not started on admission. Continue metoprolol tartrate 5 mg q.4 hours IV push as well as p.r.n. hydralazine to manage her blood pressure. (5) Sepsis: Qualifiers: Sepsis acute organ dysfunction status: unspecified Sepsis type: methicillin resistant Staphylococcus aureus Qualified Code(s): A41.02 - Sepsis due to Methicillin resistant Staphylococcus aureus Code(s): A41.9 - Sepsis, unspecified organism Status: Acute Assessment and Plan: Management per and brick and block mason. (6) Hypokalemia: Code(s): E87.6 - Hypokalemia Status: Acute Assessment and Plan: Potassium 2.6 this morning. Supplemented with 40 mEq p.o. and 40 mEq IV. Check stat potassium now. She continues to diurese and may need more potassium supplementation. Additional Plan Plan discussed with Dr. Dominguez 1645 09/15/2019 Subjective Date/time seen: 09/15/19 16:13 Interval history: Follow-up for: Atrial fibrillation with rapid ventricular response-converted normal sinus rhythm. Staph bacteremia Date of Service: 09/15/2019 Subjective: Remains on BiPAP. Easily arousable. Does have some back discomfort. States breathing is ?okay?. Review of Systems Review of Systems: ROS unobtainable: unobtainable due to mental condition (On BiPAP. Very tired, not able to communicate much.) and unobtainable due to mental status Exam Narrative: Exam Narrative: On BiPAP. Mildly tachypneic. Arouses easily. Const: General: comfortable and no acute distress HENMT: Head: normocephalic and atraumatic Ears: hearing grossly normal bilaterally and external ears normal General nose exam: Normal external nose present and no epistaxis Face and sinus: normal facial exam and no ecchymosis Mouth: Yes tongue normal and Yes moist mucous membranes Teeth and gingiva: dentition normal Eyes: Conjunctivae: conjunctivae normal Sclera: sclerae normal Pupils: Equal, round and reactive pupils present EOM: EOMs intact bilaterally Neck: Neck: normal visual inspection, supple and no JVD Thyroid: thyroid normal Carotids: normal carotid upstroke Resp: Effort & Inspection: normal respiratory effort and able to speak in complete sentences Auscultation: crackles bilateral at the base and diminished lung sounds Cardio: Jugular venous distension: no JVD Rate: regular rate Rhythm: regular rhythm Heart sounds: no m
[2019-09-15 17:13] LABS: Potassium 2.9 mmol/L (3.4-5.0)
[2019-09-15 23:50] LABS: Glucose Point of Care 113 (65-105)
[2019-09-16] VITALS (30 sets, daily range): BP systolic 106–171; BP diastolic 42–78; PULSE 93–119; RESP 22–34; TEMP 36.8–37.9; O2SAT 92–100
[2019-09-16] MEDS: IPRATROPIUM BR 0.02% INH SOLN 0.5 MG/2.5 ML VIAL INHALATION ×4 (01:28→21:47)
[2019-09-16] MEDS: ALBUTEROL SULFATE NEB 2.5 MG/0.5 ML INH 5 MG INHALATION ×4 (01:28→21:47)
[2019-09-16] MEDS: LORAZEPAM INJ 2 MG/ML VIAL 0.5 MG IV PUSH (02:02)
[2019-09-16] MEDS: METOPROLOL TARTRATE INJ 5 MG/5 ML VIAL IV PUSH ×5 (04:41→23:21)
[2019-09-16 04:44] LABS: Alveolar/Arterial O2 Gradient 103.5 mmHg; Base Excess ABG 4.5 mEq/l (+/-2.0); Carboxyhemoglobin 0.3 % THb (0-2.0); Fractional Inspired Oxygen 35 %; HCO3 ABG 28.4 mEq/l (22.0-26.0); Methemoglobin ABG 0.5 %THb (0-1.5); Oxygen Saturation ABG 97.9 % (95.0-100.0); Oxyhemoglobin 96.1 % THb (90.0-100.0); PCO2 ABG 39.4 mmHg (35.0-45.0); PO2 ABG 100.3 mmHg (80.0-100.0); PO2 FiO2 Ratio Arterial Blood 2.87 %; Reduced Hemoglobin 3.1 %THb (0-5.0); pH ABG 7.475 (7.350-7.450)
[2019-09-16 04:45] LABS: Device NON-INVASIVE VENT; Modified Allen's Test Pass; Non-Invasive Vent Rate 12 /MIN; Site Drawn LEFT RADIAL
[2019-09-16 04:46] LABS: Non-Invasive Expiratory Pressure 8 CMH2O; Non-Invasive Inspiratory Pressure 14 CMH2O
[2019-09-16 06:41] LABS: Lactic Acid 0.9 mmol/L (0.7-2.1)
[2019-09-16 06:43] LABS: Blood Urea Nitrogen 6 mg/dL (7-17); Calcium 7.3 mg/dL (8.4-10.2); Carbon Dioxide 33 mmol/L (22-30); Chloride 83 mmol/L (98-107); Estimated CRCL calculation 94 ml/min; Estimated Glomerular Filt Rate > 60; Glucose 169 mg/dL (65-105); Magnesium 1.6 mg/dL (1.6-2.3); Potassium 3.3 mmol/L (3.4-5.0); Sodium 126 mmol/L (137-145)
[2019-09-16 07:04] LABS: Hematocrit 23.4 % (37.0-47.0); Hemoglobin 7.6 g/dL (12.0-15.0); Mean Corpuscular HGB Conc 32.5 g/dl (32-36); Mean Corpuscular Hemoglobin 26.9 pg (26-34); Mean Corpuscular Volume 82.7 fl (80-100); Mean Platelet Volume 10.6 fl (7.4-10.4); Platelet Count Result 250 k/mm3 (150-375); Red Blood Count 2.83 M/mm3 (4.2-5.4); White Blood Count 22.1 K/mm3 (4.5-10.0)
--- NOTE | 2019-09-16 09:00 | PM.CNCAR ---
Assessment and Plan Assessment and plan (1) Atrial fibrillation with RVR: Code(s): I48.91 - Unspecified atrial fibrillation Status: Acute Assessment and Plan: Converted to normal sinus rhythm with esmolol. Currently in sinus rhythm/sinus tachycardia. Sinus tachycardia is appropriate for patient's clinical condition. Continue metoprolol. Anticoagulated with Lovenox (2) Acute and chronic respiratory failure: Code(s): J96.20 - Acute and chronic respiratory failure, unspecified whether with hypoxia or hypercapnia Status: Acute Assessment and Plan: Management as per ICU team (3) MRSA bacteremia: Code(s): R78.81 - Bacteremia; B95.62 - Methicillin resistant Staphylococcus aureus infection as the cause of diseases classified elsewhere Status: Acute Assessment and Plan: Treatment per Dr. Brock. Transthoracic echo did not show any obvious vegetations. Dr. Brock does not see a need for ANNA at this point. (4) HTN (hypertension): Qualifiers: Hypertension type: essential hypertension Qualified Code(s): I10 - Essential (primary) hypertension Code(s): I10 - Essential (primary) hypertension Status: Chronic Assessment and Plan: Home clonidine, hydralazine and metoprolol are on hold. Amlodipine was not started on admission. Continue metoprolol tartrate 5 mg q.4 hours IV push as well as p.r.n. hydralazine to manage her blood pressure. (5) Sepsis: Qualifiers: Sepsis type: methicillin resistant Staphylococcus aureus Sepsis acute organ dysfunction status: unspecified Qualified Code(s): A41.02 - Sepsis due to Methicillin resistant Staphylococcus aureus Code(s): A41.9 - Sepsis, unspecified organism Status: Acute Assessment and Plan: Management per and spiral tube winder helper. (6) Hypokalemia: Code(s): E87.6 - Hypokalemia Status: Acute Assessment and Plan: Potassium 2.6 this morning. Supplemented with 40 mEq p.o. and 40 mEq IV. Check stat potassium now. She continues to diurese and may need more potassium supplementation. History of Present Illness History of Present Illness Consult date/time: 09/16/19 09:00 Patient is lying in the bed, denies any shortness of breath or chest pain at present. On telemetry, she is in sinus tachycardia with heart rate in 100s. Reason For Visit: Septic Shock [facility] Past Medical History Medical History Anemia Ankle fracture, right ORIF of the right ankle Anxiety Asthma Chronic hyponatremia Depression Diverticulitis Epilepsy patient stated she did have a seizure for 10 years and was removed from her medicine. Gastroparesis GERD (gastroesophageal reflux disease) History of bipolar disorder History of home oxygen therapy 2L HLD (hyperlipidemia) HTN (hypertension) Left tibial fracture Meningoencephalitis Viral SANTI (obstructive sleep apnea) intolerant of his CPAP but she S/P ORIF (open reduction internal fixation) fracture left tibia and right ankle Seasonal allergies Shingles UTI (urinary tract infection) Surgical History Surgical History H/O: hysterectomy History of appendectomy History of knee replacement Left knee 3 times. History of tonsillectomy Family History Family History Mother Suicide Depression Heart disease Hypertension Heart failure Sibling Suicide Father Diabetes mellitus Emphysema lung Social History Social History Social History: patient tells me that she had 1 biological daughter and that she from cystic fibrosis at the age of 24. The patient tells
[2019-09-16] MEDS: DORNASE ALFA INH SOLN 1 MG/ML 2.5 ML AMP 2.5 MG INHALATION ×2 (09:13→21:47)
--- NOTE | 2019-09-16 09:56 | WPDINTPN ---
Progress Note: A&P Assessment and Plan (1) Atrial fibrillation with RVR: Code(s): I48.91 - Unspecified atrial fibrillation Status: Acute Assessment and Plan: Patient was initially on Cardizem drip but that was converted to esmolol drip by Cardiology. She converted into sinus rhythm. Esmolol drip has been stopped. She is currently on metoprolol. - lower extremity Dopplers negative for DVT - Patient in sinus tachycardia, on metoprolol - continue therapeutic Lovenox (2) MRSA bacteremia: Code(s): R78.81 - Bacteremia; B95.62 - Methicillin resistant Staphylococcus aureus infection as the cause of diseases classified elsewhere Status: Acute Assessment and Plan: MRSA bacteremia: continue vancomycin per Infectious Disease team - Cultures from 09/09 and 09/11/2027 repeat blood cultures growing MRSA 2/2 bottles. Culture from has been negative so far. - echocardiogram 09/09/2019, hyperdynamic LV systolic function with EF of 65-70%, mild aortic valve sclerosis, trace mitral valve regurg. Grade 1 diastolic dysfunction - appreciate infectious disease evaluation and recommendation - may require ANNA at some point But Infectious Disease Service does not feel if Diederich is needed at this time. (3) Sepsis: Qualifiers: Sepsis type: methicillin resistant Staphylococcus aureus Sepsis acute organ dysfunction status: unspecified Qualified Code(s): A41.02 - Sepsis due to Methicillin resistant Staphylococcus aureus Code(s): A41.9 - Sepsis, unspecified organism Status: Acute Assessment and Plan: patient initially presented with septic shock on 09/10/2019. was on pressor support very briefly. Currently normotensive. leukocytosis improved - blood cultures 09/09/2019 growing MRSA, repeat culture cultures 09/11/2019 MRSA 2/2 bottles. follow-up blood culture from has been negative so far. - continue vancomycin per ID (4) Acute respiratory failure: Qualifiers: Respiratory failure complication: hypoxia Qualified Code(s): J96.01 - Acute respiratory failure with hypoxia Code(s): J96.00 - Acute respiratory failure, unspecified whether with hypoxia or hypercapnia Status: Acute Assessment and Plan: acute respiratory failure secondary to pneumonia, patient currently on BiPAP and tolerating. She has been off BiPAP since yesterday and seems to be tolerating well. She is currently on 6 L of oxygen through nasal cannula. She is DNR DNI that has been confirmed with her by other healthcare providers. She now does not want BiPAP either. - continue antibiotics per Infectious Diseasee - chest x-ray with improvement - continue diuresis With Lasix 40 mg twice a day. Strict intake and output record. Daily weight. Monitor real apparent meter and electrolyte. chest x-ray reviewed with some improvement compared to the last x-ray. Will replace magnesium as well as production. She does have stable hyponatremia. Will continue to monitor it. (5) HCAP (healthcare-associated pneumonia): Code(s): J18.9 - Pneumonia, unspecified organism Status: Acute Assessment and Plan: antibiotics as above for pneumonia. pneumonia is the likely source with other less likely source can be heart hawley vegetation versus skin or bone infection from recent surgery of the left leg. (6) Hypomagnesemia: Code(s): E83.42 - Hypomagnesemia Status: Acute Assessment and Plan: Replaced today (7) HTN (hypertension): Qualifiers: Hypertension type: essential hypertension Qualified Code(s): I10 - Essential (primary) hypertension Code(s): I10 - Essential (primary) hypertension Status: Chronic Assessment and Plan: patient with history of essential hypertension on multiple home medications - continue metoprolol per Cardiology she has been restarted on hydralazine and clonidine. Will contin
[2019-09-16] MEDS: MUPIROCIN 2% OINT 22 GM TUBE 1 APPLIC EACH NARE (10:06)
[2019-09-16] MEDS: FLUTICASONE PROPIONATE 0.05% NA SPR 16 GM BTL (*BKC) 2 SPRAY NASAL (10:07)
[2019-09-16] MEDS: LIDOCAINE 5% PATCH 1 PATCH TOPICAL (10:07)
[2019-09-16] MEDS: FUROSEMIDE INJ 40 MG/4 ML VIAL IV PUSH ×2 (10:08→20:47)
[2019-09-16] MEDS: FAMCICLOVIR 250 MG TABLET PO ×2 (10:08→20:47)
[2019-09-16] MEDS: ENOXAPARIN 120 MG/0.8 ML SYRINGE 115 MG SUB-Q ×2 (10:08→20:47)
[2019-09-16] MEDS: PRIMIDONE 50 MG TABLET PO ×2 (10:09→18:24)
[2019-09-16] MEDS: LORATADINE 10 MG TABLET PO (10:09)
[2019-09-16] MEDS: ATORVASTATIN 10 MG TABLET PO (10:09)
[2019-09-16] MEDS: POTASSIUM CHLORIDE 20 MEQ PACKET (FOR LIQUID) 40 MEQ PO (10:10)
[2019-09-16] MEDS: MAGNESIUM SULF 4 GM/WATER100ML 4 GM/100 ML BAG IVPB (10:10)
[2019-09-16 13:29] LABS: Glucose Point of Care 146 (65-105)
[2019-09-16] MEDS: ONDANSETRON INJ 4 MG/2 ML VIAL IV PUSH ×2 (18:21→23:21)
[2019-09-16] MEDS: FAT EMULSIONS IV 20% 250 ML 20.8 ML IVPB (18:23)
--- NOTE | 2019-09-16 18:23 | PM.IMPN ---
Progress Note: A&P Assessment and Plan (1) Atrial fibrillation with RVR: Code(s): I48.91 - Unspecified atrial fibrillation Status: Acute Assessment and Plan: Patient developed AFib/RVR on 09/11/19 and placed on Diltiazem drip. HR still not well controlled. Esmolol drip started and patient moved to ICU on 09/12. Echo 65% EF with diastolic dysfunction. Therapeutic Lovenox started. Doppler negative for DVT. Patient converted to NSR on 09/12. Patient off Diltiazem and esmolol drip and now on IV metoprolol. HR still elevted but sinus and related to her current issues. Appreciate Cardiology input. (2) Acute and chronic respiratory failure: Code(s): J96.20 - Acute and chronic respiratory failure, unspecified whether with hypoxia or hypercapnia Status: Acute Assessment and Plan: Result of pneumonia, pulmonary edema and AFib/RVR. Able to come off of the BiPAP now. Good diuresis but minimal negative fluid balance. However, clinically improved. Continue IV antibiotics and IV Lasix. Continue nebulizer treatments. Will continue to monitor. Appreciate ctc operator input. Agree with TPN. (3) Septic shock: Code(s): A41.9 - Sepsis, unspecified organism; R65.21 - Severe sepsis with septic shock Status: Acute Assessment and Plan: Criteria met on admission. Result of pneumonia. Was only on Levophed for short period of time on admission. Blood cultures 09/09/19 (2of2) positive for MRSA. Repeat BCx 09/11/19 (2of2) also MRSA positive. Echo not showing any suspicious valvular lesions. Source is from lung but consider other sources Repeat BCx 09/14/19 NGTD. Appreciate ID input. (4) HCAP (healthcare-associated pneumonia): Code(s): J18.9 - Pneumonia, unspecified organism Status: Acute Assessment and Plan: MRSA PNA. Fevers resolved. Chest x-ray showing persistent pulmonary infiltrates with slight improvement. WBC 21-27K past 5 days. Continue Lasix. Continue IV Vancomycin. (5) HTN (hypertension): Qualifiers: Hypertension type: essential hypertension Qualified Code(s): I10 - Essential (primary) hypertension Code(s): I10 - Essential (primary) hypertension Status: Chronic Assessment and Plan: Blood pressure reviewed on 09/16/19. BP running higher now. Metoprolol oral, hydralazine and clonidine on hold. Changed to Metoprolol IV scheduled. Continue to monitor. (6) Hypomagnesemia: Code(s): E83.42 - Hypomagnesemia Status: Acute Assessment and Plan: Magnesium 1.6 today with replacement ordered. Continue to monitor and replace as needed. (7) Anemia: Qualifiers: Anemia type: unspecified type Qualified Code(s): D64.9 - Anemia, unspecified Code(s): D64.9 - Anemia, unspecified Status: Chronic Assessment and Plan: Hemoglobin low but stable at 7-8 range. No active sign of bleeding. Will monitor closely while on Lovenox. (8) Chronic hyponatremia: Code(s): E87.1 - Hypo-osmolality and hyponatremia Status: Acute Assessment and Plan: Patient does have chronic hyponatremia. Sodium still low and has dropped to 126. Yana 94. Na level worsening despite improvement in her fluid status. TPN started so will continue to follow closely. (9) HLD (hyperlipidemia): Qualifiers: Hyperlipidemia type: unspecified Qualified Code(s): E78.5 - Hyperlipidemia, unspecified Code(s): E78.5 - Hyperlipidemia, unspecified Status: Chronic Assessment and Plan: LFTs normal. Continue atorvastatin. (10) Anxiety: Code(s): F41.9 - Anxiety disorder, unspecified Status: Chronic Assessment and Plan: Was not on buspirone at home. Had been started on admission but discontinued. Not on medication for anxiety from home. Patient has been using IV lorazepam as needed for her anxiety. (11) DVT prophylaxis: Cod
[2019-09-16 19:20] LABS: Glucose Point of Care 146 (65-105)
[2019-09-16] MEDS: POTASSIUM CHLORIDE 20 MEQ TABLET 40 MEQ PO (20:46)
[2019-09-16] MEDS: LORAZEPAM 0.5 MG TABLET PO (21:35)
[2019-09-16 23:34] LABS: Glucose Point of Care 147 (65-105)
[2019-09-17] VITALS (30 sets, daily range): BP systolic 124–166; BP diastolic 52–78; PULSE 94–114; RESP 14–36; TEMP 36.9–37.6; O2SAT 88–98
[2019-09-17] MEDS: TOLNAFTATE 1% POWDER 45 GM BTL 1 APPLIC TOPICAL ×3 (00:53→21:15)
[2019-09-17] MEDS: MICONAZOLE NITRATE 2% CREAM 30 GM TUBE 1 APPLIC TOPICAL ×3 (00:53→21:14)
[2019-09-17] MEDS: ALBUTEROL SULFATE NEB 2.5 MG/0.5 ML INH 5 MG INHALATION ×3 (02:42→21:26)
[2019-09-17] MEDS: IPRATROPIUM BR 0.02% INH SOLN 0.5 MG/2.5 ML VIAL INHALATION ×3 (02:42→21:26)
[2019-09-17] MEDS: METOPROLOL TARTRATE INJ 5 MG/5 ML VIAL IV PUSH ×5 (04:47→21:08)
[2019-09-17 04:58] LABS: Alveolar/Arterial O2 Gradient 118.2 mmHg; Carboxyhemoglobin 0.3 % THb (0-2.0); Fractional Inspired Oxygen 35 %; HCO3 ABG 32.6 mEq/l (22.0-26.0); Methemoglobin ABG 0.5 %THb (0-1.5); Oxygen Content ABG 13.5 %vol (16.0-22.0); Oxyhemoglobin 93.8 % THb (90.0-100.0); PCO2 ABG 46.4 mmHg (35.0-45.0); PO2 ABG 77.4 mmHg (80.0-100.0); PO2 FiO2 Ratio Arterial Blood 2.21 %; Reduced Hemoglobin 5.4 %THb (0-5.0); Total Hemoglobin 10.2 g/dL (12.0-18.0); pH ABG 7.465 (7.350-7.450)
[2019-09-17 04:59] LABS: Device NON-INVASIVE VENT; Modified Allen's Test Pass; Site Drawn LEFT RADIAL
[2019-09-17 05:00] LABS: Non-Invasive Expiratory Pressure 8 CMH2O; Non-Invasive Inspiratory Pressure 14 CMH2O; Non-Invasive Vent Rate 12 /MIN
[2019-09-17] MEDS: LORAZEPAM 0.5 MG TABLET PO ×3 (05:02→21:18)
[2019-09-17 05:03] LABS: Hematocrit 24.8 % (37.0-47.0); Mean Corpuscular HGB Conc 32.3 g/dl (32-36); Mean Corpuscular Hemoglobin 26.8 pg (26-34); Mean Corpuscular Volume 82.9 fl (80-100); Mean Platelet Volume 9.5 fl (7.4-10.4); Platelet Count Result 274 k/mm3 (150-375); Red Blood Count 2.99 M/mm3 (4.2-5.4); Red Cell Distribution Width 16.1 % (11.5-14.5); White Blood Count 27.7 K/mm3 (4.5-10.0)
[2019-09-17 05:18] LABS: Lactic Acid 1.4 mmol/L (0.7-2.1)
[2019-09-17 05:24] LABS: Blood Urea Nitrogen 8 mg/dL (7-17); Calcium 7.6 mg/dL (8.4-10.2); Carbon Dioxide 33 mmol/L (22-30); Chloride 85 mmol/L (98-107); Estimated CRCL calculation 90 ml/min; Estimated Glomerular Filt Rate > 60; Glucose 133 mg/dL (65-105); Phosphorus 3.5 mg/dL (2.5-4.5); Potassium 3.8 mmol/L (3.4-5.0); Sodium 126 mmol/L (137-145)
[2019-09-17] MEDS: DORNASE ALFA INH SOLN 1 MG/ML 2.5 ML AMP 2.5 MG INHALATION ×2 (09:12→21:26)
[2019-09-17] MEDS: PRIMIDONE 50 MG TABLET PO ×2 (09:22→16:56)
[2019-09-17] MEDS: LIDOCAINE 5% PATCH 1 PATCH TOPICAL (09:24)
[2019-09-17] MEDS: LORATADINE 10 MG TABLET PO (09:24)
[2019-09-17] MEDS: FAMCICLOVIR 250 MG TABLET PO ×2 (09:25→21:12)
[2019-09-17] MEDS: ENOXAPARIN 120 MG/0.8 ML SYRINGE 115 MG SUB-Q ×2 (09:25→21:11)
[2019-09-17] MEDS: FLUTICASONE PROPIONATE 0.05% NA SPR 16 GM BTL (*BKC) 2 SPRAY NASAL (09:25)
[2019-09-17] MEDS: ATORVASTATIN 10 MG TABLET PO (09:25)
[2019-09-17] MEDS: POTASSIUM CHLORIDE 20 MEQ TABLET.ER 40 MEQ PO ×2 (09:25→16:58)
[2019-09-17] MEDS: ONDANSETRON INJ 4 MG/2 ML VIAL IV PUSH ×2 (09:36→13:41)
[2019-09-17] MEDS: FUROSEMIDE INJ 100 MG/10 ML VIAL 80 MG IV PUSH ×2 (09:36→21:13)
--- NOTE | 2019-09-17 11:43 | PM.PNCARD ---
Progress Note: A&P Assessment and Plan (1) Atrial fibrillation with RVR: Code(s): I48.91 - Unspecified atrial fibrillation Status: Acute Assessment and Plan: Converted to normal sinus rhythm with esmolol. Currently in sinus rhythm/sinus tachycardia. Sinus tachycardia is appropriate for patient's clinical condition. Continue metoprolol. Anticoagulated with Lovenox (2) Acute and chronic respiratory failure: Code(s): J96.20 - Acute and chronic respiratory failure, unspecified whether with hypoxia or hypercapnia Status: Acute Assessment and Plan: Management as per ICU team (3) MRSA bacteremia: Code(s): R78.81 - Bacteremia; B95.62 - Methicillin resistant Staphylococcus aureus infection as the cause of diseases classified elsewhere Status: Acute Assessment and Plan: Treatment per Dr. Brock. Transthoracic echo did not show any obvious vegetations. Dr. Brock does not see a need for ANNA at this point. (4) HTN (hypertension): Qualifiers: Hypertension type: essential hypertension Qualified Code(s): I10 - Essential (primary) hypertension Code(s): I10 - Essential (primary) hypertension Status: Chronic Assessment and Plan: Home clonidine, hydralazine and metoprolol are on hold. Amlodipine was not started on admission. Continue metoprolol tartrate 5 mg q.4 hours IV push as well as p.r.n. hydralazine to manage her blood pressure. (5) Sepsis: Qualifiers: Sepsis type: methicillin resistant Staphylococcus aureus Sepsis acute organ dysfunction status: unspecified Qualified Code(s): A41.02 - Sepsis due to Methicillin resistant Staphylococcus aureus Code(s): A41.9 - Sepsis, unspecified organism Status: Acute Assessment and Plan: Management per and fraternity adviser. (6) Hypokalemia: Code(s): E87.6 - Hypokalemia Status: Acute Assessment and Plan: Supplementation as needed Subjective Date/time seen: 09/16/2019- Patient is lying in the bed, denies any shortness of breath or chest pain at present. On telemetry, she is in sinus tachycardia with heart rate in 100s. 09/17/19 11:43 patient denies shortness of breath or chest pain at rest. On telemetry, she has been in sinus rhythm/sinus tachycardia with heart rate in 100s. She is receiving metoprolol. Exam Const: General: no acute distress, alert and awake HENMT: Head: normocephalic and atraumatic Ears: hearing grossly normal bilaterally and external ears normal General nose exam: Normal external nose present and no epistaxis Face and sinus: normal facial exam and no ecchymosis Mouth: Yes tongue normal and Yes moist mucous membranes Teeth and gingiva: dentition normal Eyes: Conjunctivae: conjunctivae normal Sclera: sclerae normal Pupils: Equal, round and reactive pupils present EOM: EOMs intact bilaterally Neck: Neck: normal visual inspection, supple and no JVD Thyroid: thyroid normal Carotids: normal carotid upstroke Resp: Effort & Inspection: normal respiratory effort, able to speak in complete sentences and audible wheezes Auscultation: clear to auscultation bilaterally Cardio: Jugular venous distension: no JVD Rate: tachycardic Rhythm: regular rhythm and abnormal rhythm (Irregularly irregular rhythm) Heart sounds: S1 normal heart sound present, S2 normal heart sound present and no murmurs GI: Inspection: normal to inspection Auscultation: normal bowel sounds Skin: Other: no rash on exposed areas, no cyanosis Neuro: Cranial nerves: Yes Equal, round and reactive pupils present and Yes Normal hearing present Other: alert, oriented, no major focal deficits on gross neurological examination Extrem: Other: Edema, recent surgical scars, no cyanosis, no major deformities Psych: Appearance: g
--- NOTE | 2019-09-17 11:47 | WPDINTPN ---
Progress Note: A&P Assessment and Plan (1) Atrial fibrillation with RVR: Code(s): I48.91 - Unspecified atrial fibrillation Status: Acute Assessment and Plan: Patient was initially on Cardizem drip but that was converted to esmolol drip by Cardiology. She converted into sinus rhythm. Esmolol drip has been stopped. She is currently on metoprolol. Still with sinus tachycardia. - lower extremity Dopplers negative for DVT - Patient in sinus tachycardia, on metoprolol - continue therapeutic Lovenox (2) MRSA bacteremia: Code(s): R78.81 - Bacteremia; B95.62 - Methicillin resistant Staphylococcus aureus infection as the cause of diseases classified elsewhere Status: Acute Assessment and Plan: MRSA bacteremia: continue vancomycin per Infectious Disease team - Cultures from 09/09 and 09/11/2027 repeat blood cultures growing MRSA 2/2 bottles. Culture from 09/14 has been negative so far. - echocardiogram 09/09/2019, hyperdynamic LV systolic function with EF of 65-70%, mild aortic valve sclerosis, trace mitral valve regurg. Grade 1 diastolic dysfunction - appreciate infectious disease evaluation and recommendation - may require ANNA at some point But Infectious Disease Service does not feel if it is needed at this time. - Today has noticed some worsening leukocytosis. If it continues or get worse and then probably she would need to have some imaging to look for any possible abscess formation. (3) Sepsis: Qualifiers: Sepsis type: methicillin resistant Staphylococcus aureus Sepsis acute organ dysfunction status: unspecified Qualified Code(s): A41.02 - Sepsis due to Methicillin resistant Staphylococcus aureus Code(s): A41.9 - Sepsis, unspecified organism Status: Acute Assessment and Plan: patient initially presented with septic shock on 09/10/2019. was on pressor support very briefly. Currently normotensive. - blood cultures 09/09/2019 growing MRSA, repeat culture cultures 09/11/2019 MRSA 2/2 bottles. follow-up blood culture from has been negative so far. - continue vancomycin per ID (4) Acute respiratory failure: Qualifiers: Respiratory failure complication: hypoxia Qualified Code(s): J96.01 - Acute respiratory failure with hypoxia Code(s): J96.00 - Acute respiratory failure, unspecified whether with hypoxia or hypercapnia Status: Acute Assessment and Plan: acute respiratory failure secondary to pneumonia, patient currently on BiPAP and tolerating. She has been off BiPAP since yesterday and seems to be tolerating well. She is requiring BiPAP at nighttime though.She is currently on 6 L of oxygen through nasal cannula. She was DNR DNI but she has rescinded that and now wants herself to be full code. - continue antibiotics per Infectious Diseasee - chest x-ray with improvement - continue diuresis But will increase the dose of Lasix to 80 mg twice a day. Strict intake and output record. Daily weight. Monitor renal parameter and electrolyte. chest x-ray reviewed with some improvement compared to the last x-ray. She does have stable hyponatremia. Will continue to monitor it. (5) HCAP (healthcare-associated pneumonia): Code(s): J18.9 - Pneumonia, unspecified organism Status: Acute Assessment and Plan: antibiotics as above for pneumonia. pneumonia is the likely source with other less likely source can be heart vanve vegetation versus skin or bone infection from recent surgery of the left leg. (6) Hypomagnesemia: Code(s): E83.42 - Hypomagnesemia Status: Acute Assessment and Plan: resolved (7) HTN (hypertension): Qualifiers: Hypertension type: essential hypertension Qualified Code(s): I10 - Essential (primary) hypertension Code(s): I10 - Essential (primary) hypertension Status: Chronic Assessment and Plan: patient with history
[2019-09-17] MEDS: FLUCONAZOLE 100 MG TABLET PO (13:20)
[2019-09-17 17:04] LABS: Vancomycin Trough 25.2 ug/mL (10.0-20.0)
--- NOTE | 2019-09-17 18:48 | PM.IMPN ---
Progress Note: A&P Assessment and Plan (1) Atrial fibrillation with RVR: Code(s): I48.91 - Unspecified atrial fibrillation Status: Acute Assessment and Plan: Patient developed AFib/RVR on 09/11/19 and placed on Diltiazem drip. HR still not well controlled. Esmolol drip started and patient moved to ICU on 09/12. Echo 65% EF with diastolic dysfunction. Therapeutic Lovenox started. Doppler negative for DVT. Patient converted to NSR on 09/12. Patient off Diltiazem and esmolol drip and now on IV metoprolol. HR still elevted but sinus and related to her current issues. Appreciate Cardiology input. (2) Acute and chronic respiratory failure: Code(s): J96.20 - Acute and chronic respiratory failure, unspecified whether with hypoxia or hypercapnia Status: Acute Assessment and Plan: Result of pneumonia, pulmonary edema and AFib/RVR. Able to come off of the BiPAP now. Good diuresis and with clinical improvement. Continue IV antibiotics and IV Lasix. Continue nebulizer treatments. Will continue to monitor. Appreciate journeyman electrician pv installer input. Patient eating better so TPN has been stopped. (3) Septic shock: Code(s): A41.9 - Sepsis, unspecified organism; R65.21 - Severe sepsis with septic shock Status: Acute Assessment and Plan: Criteria met on admission. Result of pneumonia. Was only on Levophed for short period of time on admission. Blood cultures 09/09/19 (2of2) positive for MRSA. Repeat BCx 09/11/19 (2of2) also MRSA positive. Echo not showing any suspicious valvular lesions. Source is from lung but consider other sources Repeat BCx 09/14/19 NGTD. Appreciate ID input. (4) HCAP (healthcare-associated pneumonia): Code(s): J18.9 - Pneumonia, unspecified organism Status: Acute Assessment and Plan: MRSA PNA. Fevers resolved. Chest x-ray showing persistent pulmonary infiltrates. WBC 21-27K past 6 days. No fevers. Unclear why persistently elevated WBC. No diarrhea to suggest CDiff. Occult GN infection? Continue IV Vancomycin. (5) HTN (hypertension): Qualifiers: Hypertension type: essential hypertension Qualified Code(s): I10 - Essential (primary) hypertension Code(s): I10 - Essential (primary) hypertension Status: Chronic Assessment and Plan: Blood pressure reviewed on 09/17/19. BP good control. Metoprolol oral, hydralazine and clonidine on hold. Continued scheduled IV Metoprolol. Continue to monitor. Change to oral route? (6) Hypomagnesemia: Code(s): E83.42 - Hypomagnesemia Status: Acute Assessment and Plan: Magnesium 2 today. Continue to monitor and replace as needed. (7) Anemia: Qualifiers: Anemia type: unspecified type Qualified Code(s): D64.9 - Anemia, unspecified Code(s): D64.9 - Anemia, unspecified Status: Chronic Assessment and Plan: Hemoglobin low but stable at 7-8 range. No active sign of bleeding. Will monitor closely while on Lovenox. (8) Chronic hyponatremia: Code(s): E87.1 - Hypo-osmolality and hyponatremia Status: Acute Assessment and Plan: Patient does have chronic hyponatremia. Sodium still low and has dropped to 126 but unchanged today. Yana 94. Na level worsening despite improvement in her fluid status. Continue to monitor for now. (9) HLD (hyperlipidemia): Qualifiers: Hyperlipidemia type: unspecified Qualified Code(s): E78.5 - Hyperlipidemia, unspecified Code(s): E78.5 - Hyperlipidemia, unspecified Status: Chronic Assessment and Plan: LFTs normal. Continue atorvastatin. (10) Anxiety: Code(s): F41.9 - Anxiety disorder, unspecified Status: Chronic Assessment and Plan: Was not on buspirone at home. Had been started on admission but discontinued. Not on medication for anxiety from home. Patient has been using IV lorazepam as needed for her
[2019-09-17] MEDS: SALINE 0.65% NAS SOLN 44 ML BTL 1 SPRAY NASAL (22:08)
[2019-09-17] MEDS: PANTOPRAZOLE 40 MG TABLET PO (22:10)
[2019-09-18] VITALS (23 sets, daily range): BP systolic 123–154; BP diastolic 44–65; PULSE 89–113; RESP 18–28; TEMP 36.6–37.2; O2SAT 90–100
[2019-09-18] MEDS: METOPROLOL TARTRATE INJ 5 MG/5 ML VIAL IV PUSH ×3 (00:56→09:25)
[2019-09-18] MEDS: ALBUTEROL SULFATE NEB 2.5 MG/0.5 ML INH 5 MG INHALATION ×5 (01:48→22:00)
[2019-09-18] MEDS: IPRATROPIUM BR 0.02% INH SOLN 0.5 MG/2.5 ML VIAL INHALATION ×5 (01:48→22:00)
[2019-09-18] MEDS: LORAZEPAM 0.5 MG TABLET PO ×3 (02:46→17:28)
[2019-09-18 06:32] LABS: Hematocrit 25.7 % (37.0-47.0); Mean Corpuscular HGB Conc 31.1 g/dl (32-36); Mean Corpuscular Hemoglobin 26.6 pg (26-34); Mean Corpuscular Volume 85.4 fl (80-100); Mean Platelet Volume 10.5 fl (7.4-10.4); Platelet Count Result 265 k/mm3 (150-375); Red Blood Count 3.01 M/mm3 (4.2-5.4); Red Cell Distribution Width 16.3 % (11.5-14.5); White Blood Count 26.8 K/mm3 (4.5-10.0)
[2019-09-18 06:41] LABS: Magnesium 1.5 mg/dL (1.6-2.3)
[2019-09-18 07:35] LABS: Band Neutrophils Percent 2 % (0-6); Eosinophils Absolute Manual 0.26 K/mm3 (0.02-0.5); Eosinophils Percent Manual 1 % (0-4); Lymphocytes Absolute Manual 3.21 K/mm3 (1.1-4.5); Monocytes Absolute Manual 1.07 K/mm3 (0.1-0.90); Monocytes Percent Manual 4 % (3-9); Neutrophils Absolute Manual 22.24 K/mm3 (1.7-7.2); Neutrophils Percent Manual 81 % (46-73); Total Cells Counted 100
[2019-09-18 07:36] LABS: Anisocytosis 1+ (NORMAL); Hypochromasia 1+ (NORMAL); Platelet Estimate Adequate (Adequate)
[2019-09-18] MEDS: DORNASE ALFA INH SOLN 1 MG/ML 2.5 ML AMP 2.5 MG INHALATION ×2 (08:07)
[2019-09-18] MEDS: ENOXAPARIN 120 MG/0.8 ML SYRINGE 115 MG SUB-Q ×2 (09:26→20:54)
[2019-09-18] MEDS: LORATADINE 10 MG TABLET PO (09:26)
[2019-09-18] MEDS: FAMCICLOVIR 250 MG TABLET PO ×2 (09:26→20:54)
[2019-09-18] MEDS: POTASSIUM CHLORIDE 20 MEQ TABLET.ER 40 MEQ PO ×2 (09:26→16:48)
[2019-09-18] MEDS: ATORVASTATIN 10 MG TABLET PO (09:27)
[2019-09-18] MEDS: FLUTICASONE PROPIONATE 0.05% NA SPR 16 GM BTL (*BKC) 2 SPRAY NASAL (09:27)
[2019-09-18] MEDS: FUROSEMIDE INJ 100 MG/10 ML VIAL 80 MG IV PUSH (09:28)
[2019-09-18] MEDS: LIDOCAINE 5% PATCH 1 PATCH TOPICAL (09:28)
[2019-09-18] MEDS: PRIMIDONE 50 MG TABLET PO ×2 (09:29→16:48)
[2019-09-18] MEDS: TOLNAFTATE 1% POWDER 45 GM BTL 1 APPLIC TOPICAL ×2 (09:29→20:55)
[2019-09-18] MEDS: MICONAZOLE NITRATE 2% CREAM 30 GM TUBE 1 APPLIC TOPICAL ×2 (09:29→20:55)
[2019-09-18] MEDS: SALINE 0.65% NAS SOLN 44 ML BTL 1 SPRAY NASAL (09:38)
--- NOTE | 2019-09-18 10:03 | PM.PNCARD ---
Progress Note: A&P Assessment and Plan (1) Atrial fibrillation with RVR: Code(s): I48.91 - Unspecified atrial fibrillation Status: Acute Assessment and Plan: Converted to normal sinus rhythm with esmolol. Currently in sinus rhythm/sinus tachycardia. Sinus tachycardia is appropriate for patient's clinical condition. will start metoprolol tartrate 25 mg p.o. b.i.d. and DC IV Toprol Anticoagulated with Lovenox (2) Acute and chronic respiratory failure: Code(s): J96.20 - Acute and chronic respiratory failure, unspecified whether with hypoxia or hypercapnia Status: Acute Assessment and Plan: Management as per ICU team (3) MRSA bacteremia: Code(s): R78.81 - Bacteremia; B95.62 - Methicillin resistant Staphylococcus aureus infection as the cause of diseases classified elsewhere Status: Acute Assessment and Plan: Treatment per Dr. Brock. Transthoracic echo did not show any obvious vegetations. Dr. Brock does not see a need for ANNA at this point. (4) HTN (hypertension): Qualifiers: Hypertension type: essential hypertension Qualified Code(s): I10 - Essential (primary) hypertension Code(s): I10 - Essential (primary) hypertension Status: Chronic Assessment and Plan: Home clonidine, hydralazine Amlodipine was not started on admission. would restart on losartan next if needed (5) Sepsis: Qualifiers: Sepsis type: methicillin resistant Staphylococcus aureus Sepsis acute organ dysfunction status: unspecified Qualified Code(s): A41.02 - Sepsis due to Methicillin resistant Staphylococcus aureus Code(s): A41.9 - Sepsis, unspecified organism Status: Acute Assessment and Plan: Management per and clinical engineer. (6) Hypokalemia: Code(s): E87.6 - Hypokalemia Status: Acute Assessment and Plan: Supplementation as needed Subjective Date/time seen: 09/18/19 10:03 Interval history: Follow-up for: Atrial fibrillation with rapid ventricular response-converted normal sinus rhythm. Staph bacteremia Date of Service: Subjective: she feels relatively well at this point. She denies any chest pain or shortness of breath. She is conversant Review of Systems Review of Systems: All systems reviewed & are unremarkable except as noted in HPI and below Constitutional: Constitutional: Denies chills, Reports fatigue, Reports fever(s) and Denies headache(s) Eyes: Eyes: Reports as per HPI, Denies blurry vision, Denies change in vision, Denies loss of vision and Denies eye pain ENT: Reports as per HPI, Reports Normal hearing present, Denies headache(s), Denies lip swelling, Denies epistaxis and Denies sore throat Cardiovascular: Cardiovascular: Reports as per HPI, Denies chest pain, Denies syncope, Reports irregular heart rhythm, Denies lightheadedness and Reports dyspnea Respiratory: Respiratory: Reports as per HPI, Denies cough, Reports dyspnea and Denies wheezing Gastrointestinal: Gastrointestinal: Reports as per HPI, Denies abdominal pain, Denies melena, Denies nausea and Denies vomiting Genitourinary: Genitourinary: Reports as per HPI Musculoskeletal: Musculoskeletal: Reports no additional musculoskeletal complaints, Reports as per HPI and Reports arthralgias (Patient recently had surgery left tibia right ankle) Integumentary/Breasts: Skin/Breast: Reports as per HPI, Denies pruritus and Denies rash Neurologic: Reports as per HPI, Reports Normal hearing present, Denies behavioral changes, Denies syncope, Denies headache(s) and Denies loss of vision Psychiatric: Psychiatric: Reports as per HPI, Reports anxiety, Denies behavioral changes and Denies depression Endocrine: Endocrine: Reports as per HPI, Reports fatigue, Denies polydipsia and Denies polyu
[2019-09-18] MEDS: ONDANSETRON INJ 4 MG/2 ML VIAL IV PUSH ×2 (10:50→17:28)
--- NOTE | 2019-09-18 13:44 | WPDINFPN2 ---
Progress Note: A&P Assessment and Plan (1) MRSA bacteremia: Code(s): R78.81 - Bacteremia; B95.62 - Methicillin resistant Staphylococcus aureus infection as the cause of diseases classified elsewhere Status: Acute Assessment and Plan: 1. MRSA bacteremia with infection, lung source. Less likely source: IE, L leg soft tissue or bone infection, skin infection elsewhere, upper respiratory, other endovascular. WBC is still high, has defervesced 2. Recent (06/28) compound fracture L tibia, ORIF, no infection 3. L TKA REC Vanc # days, continue. Target trough 15-20. Subjective Date/time seen: 09/18/19 13:44 Interval history: no complaints. On NC O2. Exam Narrative: Exam Narrative: afebrile Const: General: no acute distress Eyes: General: appearance normal, both eyes and all related structures Resp: Effort & Inspection: normal respiratory effort Auscultation: clear to auscultation bilaterally Cardio: Rate: tachycardic Rhythm: regular rhythm Heart sounds: Murmur heart sound present GI: Inspection: non-distended GI Palp: Yes Soft to palpation and No Tenderness to palpation present (GI) Objective Data Vital Signs Vital Signs: Vital Signs - 24 hr 09/17/19 14:00 09/17/19 14:12 09/17/19 14:13 Temperature 37.2 C Pulse Rate 105 H 101 H Respiratory Rate 33 H 28 H Blood Pressure 146/62 H Pulse Oximetry 94 95 09/17/19 16:00 09/17/19 17:29 09/17/19 18:00 Temperature 37.1 C Pulse Rate 110 H 112 H 109 H Respiratory Rate 29 H 25 H Blood Pressure 139/52 L 144/62 H Pulse Oximetry 94 92 09/17/19 20:00 09/17/19 21:05 09/17/19 21:08 Temperature 36.9 C Pulse Rate 108 H 94 114 H Respiratory Rate 29 H 24 H Blood Pressure 147/78 H Pulse Oximetry 95 95 09/17/19 21:25 09/17/19 22:00 09/17/19 22:29 Temperature Pulse Rate 96 98 Respiratory Rate 24 H 24 H Blood Pressure 148/67 H Pulse Oximetry 90 88 L 09/17/19 23:25 09/17/19 23:30 09/18/19 00:00 Temperature 36.8 C Pulse Rate 98 104 H Respiratory Rate 28 H 19 Blood Pressure 130/61 Pulse Oximetry 98 96 90 09/18/19 00:56 09/18/19 01:49 09/18/19 01:58 Temperature Pulse Rate 106 H 98 94 Respiratory Rate 25 H 22 H Blood Pressure Pulse Oximetry 09/18/19 02:00 09/18/19 04:00 09/18/19 04:09 Temperature 37.2 C Pulse Rate 101 H 104 H 104 H Respiratory Rate 21 H Blood Pressure 136/59 L Pulse Oximetry 98 09/18/19 06:00 09/18/19 08:00 09/18/19 08:12 Temperature Pulse Rate 96 97 104 H Respiratory Rate 28 H 20 Blood Pressure 123/49 L Pulse Oximetry 98 09/18/19 09:25 09/18/19 10:00 09/18/19 12:00 Temperature Pulse Rate 102 H 106 H 106 H Respiratory Rate 27 H Blood Pressure Pulse Oximetry 93 Intake/Output Intake/Output: Intake & Output 09/15/19 09/16/19 09/17/19 09/18/19 23:59 23:59 23:59 23:59 Intake Total 1420 5035.0 1840 480 Output Total 2350 4850 4000 1450 Balance -930 185.0 -2160 -970 Meds/Results Medications: Active Medications Generic Name Dose Route Start Last Admin Trade Name Freq PRN Reason Stop Dose Admin Albuterol 5 mg 09/09/19 20:00 09/18/19 08:04 Albuterol Sulf Neb 2.5mg/0.5ml INHALATION 5 mg Q6HRT KELIN Administration Atorvastatin Calcium 10 mg 09/16/19 09:00 09/18/19 09:27 Lipitor PO 10 mg DAILY KELIN Administration Clonidine HCl 0.2 mg 09/11/19 09:00 09/11/19 20:23 Catapres PO 0.2 mg Q12HR KELIN Administration Dornase Harjeet 2.5 mg 09/11/19 20:00 09/18/19 08:07 Pulmozyme INHALATION 2.5 mg Q12HRT KELIN Administration Enoxaparin Sodium 115 mg 09/12/19 18:00 09/18/19 09:26 Lovenox SUB-Q 115 mg Q12HR KELIN Administration Famciclovir 250 mg 09/09/19 21:00 09/18/19 09:26 Famvir PO 250 mg Q12HR KELIN Administration Fluticasone Propionate 2 spray 09/10/19 09:00 09/18/19 09:27 Flonase 0.05% Nasal [place] NASAL 2 spray DAILY KELIN Administration Furosemide 8
--- NOTE | 2019-09-18 17:59 | PM.IMPN ---
Progress Note: A&P Assessment and Plan (1) Atrial fibrillation with RVR: Code(s): I48.91 - Unspecified atrial fibrillation Status: Acute Assessment and Plan: Patient developed AFib/RVR on 09/11/19 and placed on Diltiazem drip. HR still not well controlled. Esmolol drip started and patient moved to ICU on 09/12. Echo 65% EF with diastolic dysfunction. Therapeutic Lovenox started. Doppler negative for DVT. Patient converted to NSR on 09/12. Patient off Diltiazem and esmolol drip and was transitioned to IV metoprolol. Metoprolol changed to oral today. HR still elevated but sinus and related to her current issues. Continue to monitor on tele. Appreciate Cardiology input. (2) Acute and chronic respiratory failure: Code(s): J96.20 - Acute and chronic respiratory failure, unspecified whether with hypoxia or hypercapnia Status: Acute Assessment and Plan: Result of pneumonia, pulmonary edema and AFib/RVR. BiPAP weaned to be used at night and with naps. Good diuresis with the Lasix and with clinical improvement. Continue IV antibiotics. Change to oral Lasix tomorrow. Continue nebulizer treatments. Will continue to monitor. (3) Septic shock: Code(s): A41.9 - Sepsis, unspecified organism; R65.21 - Severe sepsis with septic shock Status: Acute Assessment and Plan: Criteria met on admission. Result of pneumonia. Was only on Levophed for short period of time on admission. Blood cultures 09/09/19 (2of2) positive for MRSA. Repeat BCx 09/11/19 (2of2) also MRSA positive. Echo not showing any suspicious valvular lesions. Source is from lung but consider other sources Repeat BCx 09/14/19 NGTD. Appreciate ID input. Plan to remove central line tomorrow and place PICC line for long-term IV abx. (4) HCAP (healthcare-associated pneumonia): Code(s): J18.9 - Pneumonia, unspecified organism Status: Acute Assessment and Plan: MRSA PNA. Fevers resolved. No CXR today. Unclear why persistently elevated WBC but slowly trending down. No diarrhea to suggest CDiff. Related to central line? Continue IV Vancomycin. Appreciate ID input. (5) HTN (hypertension): Qualifiers: Hypertension type: essential hypertension Qualified Code(s): I10 - Essential (primary) hypertension Code(s): I10 - Essential (primary) hypertension Status: Chronic Assessment and Plan: Blood pressure reviewed on 09/18/19. BP remains in good control. Norvasc, olmesartan, hydralazine and clonidine on hold. Changed to oral Metoprolol today. Continue to monitor. Add back home meds as needed. (6) Hypomagnesemia: Code(s): E83.42 - Hypomagnesemia Status: Acute Assessment and Plan: Magnesium 1.5 today. Will replace. Continue to monitor and replace as needed. (7) Anemia: Qualifiers: Anemia type: unspecified type Qualified Code(s): D64.9 - Anemia, unspecified Code(s): D64.9 - Anemia, unspecified Status: Chronic Assessment and Plan: Hemoglobin low but stable at 7-8 range. No active sign of bleeding. Will monitor closely while on Lovenox. (8) Chronic hyponatremia: Code(s): E87.1 - Hypo-osmolality and hyponatremia Status: Acute Assessment and Plan: Patient does have chronic hyponatremia. Sodium still low and has dropped to 126 but unchanged today. Yana 94. Na level worsening despite improvement in her fluid status. Continue to monitor for now. (9) HLD (hyperlipidemia): Qualifiers: Hyperlipidemia type: unspecified Qualified Code(s): E78.5 - Hyperlipidemia, unspecified Code(s): E78.5 - Hyperlipidemia, unspecified Status: Chronic Assessment and Plan: LFTs normal. Continue atorvastatin. (10) Anxiety: Code(s): F41.9 - Anxiety disorder, unspecified Status: Chronic Assessment and Plan: Was not on buspirone at home.
[2019-09-18 19:49] LABS: Blood Urea Nitrogen 9 mg/dL (7-17); Calcium 7.5 mg/dL (8.4-10.2); Carbon Dioxide 33 mmol/L (22-30); Chloride 83 mmol/L (98-107); Estimated CRCL calculation 68 ml/min; Estimated Glomerular Filt Rate > 60; Glucose 139 mg/dL (65-105); Potassium 4.1 mmol/L (3.4-5.0); Sodium 126 mmol/L (137-145)
[2019-09-18] MEDS: METOPROLOL TARTRATE 25 MG TABLET PO (20:54)
[2019-09-18] MEDS: PANTOPRAZOLE 40 MG TABLET PO (20:54)
[2019-09-18] MEDS: busPIRone HCL 2.5 MG TABLET PO (20:55)
[2019-09-18] MEDS: MAGNESIUM SULF 2 GM/WATER 50ML 2 GM/50 ML BAG IVPB (21:02)
[2019-09-19] VITALS (22 sets, daily range): BP systolic 123–154; BP diastolic 51–67; PULSE 70–108; RESP 18–26; TEMP 36.6–36.7; O2SAT 95–100; BMI 10.0
[2019-09-19] MEDS: LORAZEPAM 0.5 MG TABLET PO ×4 (01:26→21:36)
[2019-09-19] MEDS: ONDANSETRON INJ 4 MG/2 ML VIAL IV PUSH ×4 (01:26→21:37)
[2019-09-19] MEDS: IPRATROPIUM BR 0.02% INH SOLN 0.5 MG/2.5 ML VIAL INHALATION ×3 (03:02→20:19)
[2019-09-19] MEDS: ALBUTEROL SULFATE NEB 2.5 MG/0.5 ML INH 5 MG INHALATION ×3 (03:02→20:19)
[2019-09-19 04:51] LABS: Hematocrit 24.2 % (37.0-47.0); Hemoglobin 7.5 g/dL (12.0-15.0); Mean Corpuscular Hemoglobin 26.4 pg (26-34); Mean Corpuscular Volume 85.2 fl (80-100); Mean Platelet Volume 10.4 fl (7.4-10.4); Platelet Count Result 274 k/mm3 (150-375); Red Blood Count 2.84 M/mm3 (4.2-5.4); Red Cell Distribution Width 16.1 % (11.5-14.5); White Blood Count 23.9 K/mm3 (4.5-10.0)
[2019-09-19 05:10] LABS: Blood Urea Nitrogen 8 mg/dL (7-17); Calcium 7.7 mg/dL (8.4-10.2); Carbon Dioxide 31 mmol/L (22-30); Chloride 86 mmol/L (98-107); Estimated CRCL calculation 69 ml/min; Estimated Glomerular Filt Rate > 60; Glucose 127 mg/dL (65-105); Magnesium 2.1 mg/dL (1.6-2.3); Phosphorus 3.5 mg/dL (2.5-4.5); Potassium 4.5 mmol/L (3.4-5.0); Sodium 126 mmol/L (137-145)
[2019-09-19] MEDS: MICONAZOLE NITRATE 2% CREAM 30 GM TUBE 1 APPLIC TOPICAL ×2 (09:26→21:00)
[2019-09-19] MEDS: TOLNAFTATE 1% POWDER 45 GM BTL 1 APPLIC TOPICAL ×2 (09:26→21:01)
[2019-09-19] MEDS: LIDOCAINE 5% PATCH 1 PATCH TOPICAL (09:27)
[2019-09-19] MEDS: PRIMIDONE 50 MG TABLET PO ×2 (09:29→16:50)
[2019-09-19] MEDS: METOPROLOL TARTRATE 25 MG TABLET PO ×2 (09:29→20:59)
[2019-09-19] MEDS: busPIRone HCL 2.5 MG TABLET PO ×2 (09:30→20:59)
[2019-09-19] MEDS: ATORVASTATIN 10 MG TABLET PO (09:30)
[2019-09-19] MEDS: FLUTICASONE PROPIONATE 0.05% NA SPR 16 GM BTL (*BKC) 2 SPRAY NASAL (09:31)
[2019-09-19] MEDS: GABAPENTIN 300 MG CAPSULE PO (09:31)
[2019-09-19] MEDS: LORATADINE 10 MG TABLET PO (09:31)
[2019-09-19] MEDS: FAMCICLOVIR 250 MG TABLET PO ×2 (09:31→20:59)
[2019-09-19] MEDS: FUROSEMIDE 40 MG TABLET PO ×2 (09:35→16:48)
[2019-09-19] MEDS: SALINE 0.65% NAS SOLN 44 ML BTL 1 SPRAY NASAL (09:35)
[2019-09-19] MEDS: ENOXAPARIN 120 MG/0.8 ML SYRINGE 115 MG SUB-Q ×2 (09:36→21:00)
[2019-09-19 10:12] LABS: Vancomycin Trough 20.8 ug/mL (10.0-20.0)
--- NOTE | 2019-09-19 10:43 | PM.IMPN ---
Progress Note: A&P Assessment and Plan (1) Septic shock: Code(s): A41.9 - Sepsis, unspecified organism; R65.21 - Severe sepsis with septic shock Status: Acute Assessment and Plan: Criteria met on admission. Result of pneumonia. Was only on Levophed for short period of time on admission. Blood cultures 09/09/19 (2of2) positive for MRSA. Repeat blood cultures from 09/11/2019 also both positive for MRSA. 3rd set of blood cultures from 09/14/2019 remain negative at this time. Transthoracic echocardiogram with no suspicious valvular lesions. Appreciate input from ID. ID does not feel ANNA necessary at this time. Central line still in place but will eventually need PICC line for long-term treatment with IV vancomycin currently at Day #. Patient has been accepted at [facility]. Awaiting SNF authorization from insurance. Will transfer to medical floor as stable at this time. PT/OT evaluations requested to help with bed mobility. (2) Atrial fibrillation with RVR: Code(s): I48.91 - Unspecified atrial fibrillation Status: Acute Assessment and Plan: Cardiology consulted and appreciate input. Developed atrial fibrillation with RVR on 09/11/2019. At that time she was placed on IV diltiazem. Subsequently required esmolol drip for which she was transferred back to ICU on 09/12/2019. Telemetry reviewed on 09/19/2019 with sinus rhythm. Patient has been in sinus rhythm after converting on esmolol. Now in IMU. Echocardiogram with EF 65% with diastolic dysfunction. On oral metoprolol at this time and will continue. Remains on therapeutic Lovenox for anticoagulation. Will monitor clinically at this point. (3) Acute and chronic respiratory failure: Qualifiers: Respiratory failure complication: hypoxia Qualified Code(s): J96.21 - Acute and chronic respiratory failure with hypoxia Code(s): J96.20 - Acute and chronic respiratory failure, unspecified whether with hypoxia or hypercapnia Status: Acute Assessment and Plan: Result of pneumonia, pulmonary edema and atrial fibrillation with RVR. Using BiPAP at night. On 4 L of oxygen during the day. Continue IV antibiotics as noted above. Also on oral Lasix. Continue nebulizer treatments. Will monitor. (4) HCAP (healthcare-associated pneumonia): Code(s): J18.9 - Pneumonia, unspecified organism Status: Acute Assessment and Plan: MRSA pneumonia. Now on long-term IV vancomycin per infectious disease as noted above. Wean oxygen as tolerated. Will monitor. (5) HTN (hypertension): Qualifiers: Hypertension type: essential hypertension Qualified Code(s): I10 - Essential (primary) hypertension Code(s): I10 - Essential (primary) hypertension Status: Chronic Assessment and Plan: Blood pressure reviewed on 09/19/19 and remains stable. Will monitor on oral metoprolol. Olmesartan restarted. Amlodipine, hydralazine and clonidine all remain on hold at this time. (6) Hypomagnesemia: Code(s): E83.42 - Hypomagnesemia Status: Acute Assessment and Plan: Magnesium 2.1 today. Will continue to monitor and replace as needed. (7) Anemia: Qualifiers: Anemia type: unspecified type Qualified Code(s): D64.9 - Anemia, unspecified Code(s): D64.9 - Anemia, unspecified Status: Chronic Assessment and Plan: Hemoglobin remains stable within her normal range at 7.5 today. No active sign of bleeding. Will continue to monitor. (8) Chronic hyponatremia: Code(s): E87.1 - Hypo-osmolality and hyponatremia Status: Acute Assessment and Plan: Patient does have chronic hyponatremia. Sodium remaining stable at 126 again today. Will monitor. (9) HLD (hyperlipidemia): Qualifiers: Hyperlipidemia type: unspecified Qualified Code(s): E78.5 - Hyperlipidemia, unspecified Code(s): E78.5 - Hyperlipidemia, unspecifie
--- NOTE | 2019-09-19 11:17 | PM.PNCARD ---
Progress Note: A&P Assessment and Plan (1) Atrial fibrillation with RVR: Code(s): I48.91 - Unspecified atrial fibrillation Status: Acute Assessment and Plan: Converted to normal sinus rhythm with esmolol. Currently in sinus rhythm/sinus tachycardia. Sinus tachycardia is appropriate for patient's clinical condition. continue metoprolol Anticoagulated with Lovenox (2) Acute and chronic respiratory failure: Code(s): J96.20 - Acute and chronic respiratory failure, unspecified whether with hypoxia or hypercapnia Status: Acute Assessment and Plan: stable (3) MRSA bacteremia: Code(s): R78.81 - Bacteremia; B95.62 - Methicillin resistant Staphylococcus aureus infection as the cause of diseases classified elsewhere Status: Acute Assessment and Plan: Treatment per Dr. Brock. Transthoracic echo did not show any obvious vegetations. Dr. Brock does not see a need for ANNA at this point. (4) HTN (hypertension): Qualifiers: Hypertension type: essential hypertension Qualified Code(s): I10 - Essential (primary) hypertension Code(s): I10 - Essential (primary) hypertension Status: Chronic Assessment and Plan: Home clonidine, hydralazine olmesartan 40 mg p.o. daily to be started (5) Sepsis: Qualifiers: Sepsis type: methicillin resistant Staphylococcus aureus Sepsis acute organ dysfunction status: unspecified Qualified Code(s): A41.02 - Sepsis due to Methicillin resistant Staphylococcus aureus Code(s): A41.9 - Sepsis, unspecified organism Status: Acute Assessment and Plan: Management per and promotional demonstrator. (6) Hypokalemia: Code(s): E87.6 - Hypokalemia Status: Acute Assessment and Plan: Supplementation as needed Subjective Date/time seen: 09/19/19 11:17 Interval history: Follow-up for: Atrial fibrillation with rapid ventricular response-converted normal sinus rhythm. Staph bacteremia Date of Service: Subjective: feeling better. She denies any chest pain or shortness of breath. has some neuropathic pain Review of Systems Review of Systems: All systems reviewed & are unremarkable except as noted in HPI and below ROS unobtainable: unobtainable due to mental condition (On BiPAP. Very tired, not able to communicate much.) and unobtainable due to mental status Constitutional: Constitutional: Denies chills, Reports fatigue, Reports fever(s) and Denies headache(s) Eyes: Eyes: Reports as per HPI, Denies blurry vision, Denies change in vision, Denies loss of vision and Denies eye pain ENT: Reports as per HPI, Reports Normal hearing present, Denies headache(s), Denies lip swelling, Denies epistaxis and Denies sore throat Cardiovascular: Cardiovascular: Reports as per HPI, Denies chest pain, Denies syncope, Reports irregular heart rhythm, Denies lightheadedness and Reports dyspnea Respiratory: Respiratory: Reports as per HPI, Denies cough, Reports dyspnea and Reports wheezing Gastrointestinal: Gastrointestinal: Reports as per HPI, Denies abdominal pain, Denies melena, Denies nausea and Denies vomiting Genitourinary: Genitourinary: Reports as per HPI Musculoskeletal: Musculoskeletal: Reports no additional musculoskeletal complaints, Reports as per HPI and Reports arthralgias (Patient recently had surgery left tibia right ankle) Integumentary/Breasts: Skin/Breast: Reports as per HPI, Denies pruritus and Denies rash Neurologic: Reports as per HPI, Reports Normal hearing present, Denies behavioral changes, Denies syncope, Denies headache(s) and Denies loss of vision Psychiatric: Psychiatric: Reports as per HPI, Reports anxiety, Denies behavioral changes and Denies depression Endocrine: Endocrine: Reports as per HPI, Reports fatigue, Den
--- NOTE | 2019-09-19 11:27 | PCDIET ---
Nutrition Follow-Up Complete: Nutrition Diagnosis: Inadequate oral intake related to respiratory failure as evidenced by NPO/clear liquid diet since admission Nutrition Goal: Patient to meet estimated nutritional needs. Goal now in progress, as patient has consumed about 75% of meals on heart healthy diet. Last recorded weight is 107 kg which is decreased from last review. -I/O noted. Bowel Motility: +BM on 09/18/19. Labs Reviewed: Glu (127), Na (126), Hgb (7.5), Hct (24.2) Meds Noted: Albuterol, Protonix, Famvir, Senna, Lasix, Vancomycin Additional Notes: Recommend obtaining albumin level and replacing calcium, if indicated. No documented pressure sores. Will continue to monitor with same goal. Nutrition Monitoring and Evaluation: Follow up every 5 days.
--- NOTE | 2019-09-19 13:18 | WPDINFPN2 ---
Progress Note: A&P Assessment and Plan (1) MRSA bacteremia: Code(s): R78.81 - Bacteremia; B95.62 - Methicillin resistant Staphylococcus aureus infection as the cause of diseases classified elsewhere Status: Acute Assessment and Plan: 1. MRSA bacteremia with infection, lung source. Microbiologic cure. WBC is still high, has defervesced 2. Recent (06/28) compound fracture L tibia, ORIF, no infection 3. L TKA REC Vanc #11 / 42 days, continue. Target trough 15-20. Place PICC, and then removed R IJ CVC ( not infected on exam today) Subjective Date/time seen: 09/19/19 13:18 Interval history: lethargic, offers no complaints Exam Narrative: Exam Narrative: afebrile Const: General: no acute distress Resp: Effort & Inspection: normal respiratory effort Auscultation: clear to auscultation bilaterally Cardio: Rate: regular rate Rhythm: regular rhythm Heart sounds: no murmurs GI: Inspection: non-distended GI Palp: Yes Soft to palpation and No Tenderness to palpation present (GI) Skin: General skin exam: normal color and no rashes or lesions noted Objective Data Vital Signs Vital Signs: Vital Signs - 24 hr 09/18/19 13:45 09/18/19 13:55 09/18/19 14:00 Temperature Pulse Rate 101 H 103 H 107 H Respiratory Rate 20 20 Blood Pressure Pulse Oximetry 09/18/19 16:00 09/18/19 18:00 09/18/19 20:00 Temperature 36.6 C Pulse Rate 106 H 107 H 108 H Respiratory Rate 25 H 22 H Blood Pressure 130/53 L 154/65 H Pulse Oximetry 100 98 09/18/19 20:54 09/18/19 22:00 09/18/19 22:08 Temperature Pulse Rate 111 H 113 H 110 H Respiratory Rate 24 H 22 H Blood Pressure Pulse Oximetry 93 09/18/19 23:27 09/19/19 00:00 09/19/19 01:17 Temperature 36.6 C Pulse Rate 111 H 99 95 Respiratory Rate 20 20 Blood Pressure 145/44 H Pulse Oximetry 96 97 09/19/19 02:00 09/19/19 03:02 09/19/19 03:11 Temperature Pulse Rate 91 90 88 Respiratory Rate 26 H 26 H Blood Pressure Pulse Oximetry 09/19/19 04:00 09/19/19 06:00 09/19/19 08:00 Temperature 36.7 C 36.6 C Pulse Rate 97 101 H 96 Respiratory Rate 22 H 18 Blood Pressure 150/51 H 154/57 H Pulse Oximetry 99 98 09/19/19 09:29 09/19/19 11:54 Temperature 36.6 C Pulse Rate 102 H 95 Respiratory Rate 20 Blood Pressure 124/58 L Pulse Oximetry 97 Intake/Output Intake/Output: Intake & Output 09/16/19 09/17/19 09/18/19 09/19/19 23:59 23:59 23:59 23:59 Intake Total 5035.0 1840 1450 1070 Output Total 4850 4000 2900 450 Balance 185.0 -2160 -1450 620 Meds/Results Medications: Active Medications Generic Name Dose Route Start Last Admin Trade Name Freq PRN Reason Stop Dose Admin Albuterol 5 mg 09/09/19 20:00 09/19/19 03:02 Albuterol Sulf Neb 2.5mg/0.5ml INHALATION 5 mg Q6HRT KELIN Administration Atorvastatin Calcium 10 mg 09/16/19 09:00 09/19/19 09:30 Lipitor PO 10 mg DAILY KELIN Administration Buspirone HCl 2.5 mg 09/18/19 21:00 09/19/19 09:30 Buspar PO 2.5 mg Q12HR KELIN Administration Clonidine HCl 0.2 mg 09/11/19 09:00 09/11/19 20:23 Catapres PO 0.2 mg Q12HR KELIN Administration Enoxaparin Sodium 115 mg 09/12/19 18:00 09/19/19 09:36 Lovenox SUB-Q 115 mg Q12HR KELIN Administration Famciclovir 250 mg 09/09/19 21:00 09/19/19 09:31 Famvir PO 250 mg Q12HR KELIN Administration Fluticasone Propionate 2 spray 09/10/19 09:00 09/19/19 09:31 Flonase 0.05% Nasal [place] NASAL 2 spray DAILY KELIN Administration Furosemide 40 mg 09/19/19 09:00 09/19/19 09:35 Lasix Tablet PO 40 mg BID KELIN Administration Gabapentin 800 mg 09/19/19 13:00 Neurontin PO TID KELIN Guaifenesin 1,200 mg 09/11/19 09:00 09/19/19 09:27 Mucinex 12 Hr Tab PO 1,200 mg Q12HR KELIN Administration Hydralazine HCl 50 mg 09/10/19 21:00 09/12/19 10:28 Apresoline Tablet PO Not Given TID [facility] Hydralazine HCl 10 mg 09/12/19 12:12
[2019-09-19] MEDS: OLMESARTAN MEDOXOMIL 20 MG TABLET PO (15:06)
[2019-09-19] MEDS: GABAPENTIN 400 MG CAPSULE 800 MG PO ×2 (15:07→16:50)
[2019-09-19] MEDS: FLUCONAZOLE 150 MG TABLET PO (15:07)
--- NOTE | 2019-09-19 18:59 | PCRCNOTE ---
PAST ADMINISTRATION TIME FOR 0800 [place]
[2019-09-19] MEDS: PANTOPRAZOLE 40 MG TABLET PO (21:00)
--- NOTE | 2019-09-19 23:26 | PC.NURSE ---
This patient, Celestina Ewing, was received from [[facility] ] on 09/19/19 at 2130. Personal belongings list checked and signed. Patient/family oriented to unit policies and routines
[2019-09-20] VITALS (11 sets, daily range): BP systolic 135–168; BP diastolic 53–62; PULSE 87–114; RESP 16–25; TEMP 36.1–36.2; O2SAT 97–100
[2019-09-20] MEDS: ALBUTEROL SULFATE NEB 2.5 MG/0.5 ML INH 5 MG INHALATION ×3 (02:43→14:42)
[2019-09-20] MEDS: IPRATROPIUM BR 0.02% INH SOLN 0.5 MG/2.5 ML VIAL INHALATION ×3 (02:43→14:42)
[2019-09-20] MEDS: ONDANSETRON INJ 4 MG/2 ML VIAL IV PUSH ×2 (06:13→12:27)
[2019-09-20] MEDS: LORAZEPAM 0.5 MG TABLET PO ×2 (06:13→12:27)
[2019-09-20 06:40] LABS: Hematocrit 24.1 % (37.0-47.0); Hemoglobin 7.4 g/dL (12.0-15.0); Mean Corpuscular HGB Conc 30.7 g/dl (32-36); Mean Corpuscular Hemoglobin 26.2 pg (26-34); Mean Corpuscular Volume 85.5 fl (80-100); Mean Platelet Volume 10.1 fl (7.4-10.4); Platelet Count Result 288 k/mm3 (150-375); Red Blood Count 2.82 M/mm3 (4.2-5.4); Red Cell Distribution Width 16.4 % (11.5-14.5); White Blood Count 14.4 K/mm3 (4.5-10.0)
[2019-09-20 06:48] LABS: Blood Urea Nitrogen 8 mg/dL (7-17); Calcium 7.8 mg/dL (8.4-10.2); Carbon Dioxide 31 mmol/L (22-30); Chloride 89 mmol/L (98-107); Estimated CRCL calculation 54 ml/min; Estimated Glomerular Filt Rate 55; Glucose 119 mg/dL (65-105); Magnesium 1.9 mg/dL (1.6-2.3); Phosphorus 4.4 mg/dL (2.5-4.5); Potassium 4.2 mmol/L (3.4-5.0); Sodium 131 mmol/L (137-145)
[2019-09-20] MEDS: ENOXAPARIN 120 MG/0.8 ML SYRINGE 115 MG SUB-Q (08:08)
[2019-09-20] MEDS: FLUTICASONE PROPIONATE 0.05% NA SPR 16 GM BTL (*BKC) 2 SPRAY NASAL (08:10)
[2019-09-20] MEDS: SALINE 0.65% NAS SOLN 44 ML BTL 1 SPRAY NASAL (08:11)
[2019-09-20] MEDS: GABAPENTIN 400 MG CAPSULE 800 MG PO ×3 (08:11→16:47)
[2019-09-20] MEDS: FAMCICLOVIR 250 MG TABLET PO (08:11)
[2019-09-20] MEDS: FUROSEMIDE 40 MG TABLET PO ×2 (08:11→16:47)
[2019-09-20] MEDS: OLMESARTAN MEDOXOMIL 20 MG TABLET PO (08:11)
[2019-09-20] MEDS: LIDOCAINE 5% PATCH 1 PATCH TOPICAL (08:12)
[2019-09-20] MEDS: PRIMIDONE 50 MG TABLET PO ×2 (08:12→16:47)
[2019-09-20] MEDS: ATORVASTATIN 10 MG TABLET PO (08:12)
[2019-09-20] MEDS: busPIRone HCL 2.5 MG TABLET PO (08:12)
[2019-09-20] MEDS: LORATADINE 10 MG TABLET PO (08:13)
[2019-09-20] MEDS: METOPROLOL TARTRATE 25 MG TABLET PO (08:13)
[2019-09-20] MEDS: TOLNAFTATE 1% POWDER 45 GM BTL 1 APPLIC TOPICAL (08:14)
[2019-09-20] MEDS: MICONAZOLE NITRATE 2% CREAM 30 GM TUBE 1 APPLIC TOPICAL (08:15)
--- NOTE | 2019-09-20 10:15 | PM.IMPN ---
Progress Note: A&P Assessment and Plan (1) Septic shock: Code(s): A41.9 - Sepsis, unspecified organism; R65.21 - Severe sepsis with septic shock Status: Acute Assessment and Plan: Criteria met on admission. Result of pneumonia. Was only on Levophed for short period of time on admission. Blood cultures 09/09/19 (2of2) positive for MRSA. Repeat blood cultures from 09/11/2019 also both positive for MRSA. 3rd set of blood cultures from 09/14/2019 remain negative at this time. Transthoracic echocardiogram with no suspicious valvular lesions. Appreciate input from ID. ID does not feel ANNA necessary at this time. Central line still in place but will eventually need PICC line for long-term treatment with IV vancomycin currently at Day # (through 10/20/2019). Patient has been accepted at [facility] and insurance authorization received. PICC line being placed. Will discharge today after dose of IV vancomycin given. (2) Atrial fibrillation with RVR: Code(s): I48.91 - Unspecified atrial fibrillation Status: Acute Assessment and Plan: Cardiology consulted and appreciate input. Developed atrial fibrillation with RVR on 09/11/2019. At that time she was placed on IV diltiazem. Subsequently required esmolol drip for which she was transferred back to ICU on 09/12/2019. Patient has been in sinus rhythm after converting on esmolol. Now in IMU. Echocardiogram with EF 65% with diastolic dysfunction. Continue oral metoprolol at this time. Remains on therapeutic Lovenox for anticoagulation. Will monitor clinically at this point. (3) Acute and chronic respiratory failure: Qualifiers: Respiratory failure complication: hypoxia Qualified Code(s): J96.21 - Acute and chronic respiratory failure with hypoxia Code(s): J96.20 - Acute and chronic respiratory failure, unspecified whether with hypoxia or hypercapnia Status: Acute Assessment and Plan: Result of pneumonia, pulmonary edema and atrial fibrillation with RVR. Using BiPAP at night. Remains on 4 L of oxygen during the day. Continue IV antibiotics as noted above. Also on oral Lasix. Continue nebulizer treatments. Will monitor. (4) HCAP (healthcare-associated pneumonia): Code(s): J18.9 - Pneumonia, unspecified organism Status: Acute Assessment and Plan: MRSA pneumonia. Now on long-term IV vancomycin per infectious disease as noted above. Wean oxygen as tolerated. (5) HTN (hypertension): Qualifiers: Hypertension type: essential hypertension Qualified Code(s): I10 - Essential (primary) hypertension Code(s): I10 - Essential (primary) hypertension Status: Chronic Assessment and Plan: Blood pressure reviewed on 09/20/19. Mild elevation but stable. Continue oral metoprolol. Olmesartan restarted. Amlodipine, hydralazine and clonidine all remain on hold at this time. (6) Hypomagnesemia: Code(s): E83.42 - Hypomagnesemia Status: Acute Assessment and Plan: Magnesium 1.9 today. Will need to monitor at SNF. (7) Anemia: Qualifiers: Anemia type: unspecified type Qualified Code(s): D64.9 - Anemia, unspecified Code(s): D64.9 - Anemia, unspecified Status: Chronic Assessment and Plan: Hemoglobin remains stable within her normal range at 7.4 today. No active sign of bleeding. Will need to monitor at SNF. (8) Chronic hyponatremia: Code(s): E87.1 - Hypo-osmolality and hyponatremia Status: Acute Assessment and Plan: Patient does have chronic hyponatremia. Sodium better at 131 today. (9) HLD (hyperlipidemia): Qualifiers: Hyperlipidemia type: unspecified Qualified Code(s): E78.5 - Hyperlipidemia, unspecified Code(s): E78.5 - Hyperlipidemia, unspecified Status: Chronic Assessment and Plan: LFTs normal. Continue atorvastatin. (10) Anxiety: Code(s): F41.9 -
[2019-09-20] MEDS: LIDOCAINE HCL 1% PF INJ 5 ML VIAL INFILTRATE (10:45)
--- NOTE | 2019-09-20 12:34 | PM.PNCARD ---
Progress Note: A&P Assessment and Plan (1) Atrial fibrillation with RVR: Code(s): I48.91 - Unspecified atrial fibrillation Status: Acute Assessment and Plan: Converted to normal sinus rhythm with esmolol. Currently in sinus rhythm/sinus tachycardia. Sinus tachycardia is appropriate for patient's clinical condition. continue metoprolol will DC full-dose Lovenox. She did go in atrial fibrillation in the setting of acute illness. She has not had any evidence of atrial fibrillation in the past. She will need DVT prophylaxis dose of Lovenox while in her facility recovering. If she has future episodes of atrial fibrillation, full anticoagulation would be recommended. (2) Acute and chronic respiratory failure: Qualifiers: Respiratory failure complication: hypoxia Qualified Code(s): J96.21 - Acute and chronic respiratory failure with hypoxia Code(s): J96.20 - Acute and chronic respiratory failure, unspecified whether with hypoxia or hypercapnia Status: Acute Assessment and Plan: stable (3) MRSA bacteremia: Code(s): R78.81 - Bacteremia; B95.62 - Methicillin resistant Staphylococcus aureus infection as the cause of diseases classified elsewhere Status: Acute Assessment and Plan: Treatment per Dr. Brock. Transthoracic echo did not show any obvious vegetations. Dr. Brock does not see a need for ANNA at this point. (4) HTN (hypertension): Qualifiers: Hypertension type: essential hypertension Qualified Code(s): I10 - Essential (primary) hypertension Code(s): I10 - Essential (primary) hypertension Status: Chronic Assessment and Plan: Home clonidine, hydralazine olmesartan 40 mg p.o. daily will start some of her amlodipine back. Will start 5 mg p.o. daily (5) Sepsis: Qualifiers: Sepsis type: methicillin resistant Staphylococcus aureus Sepsis acute organ dysfunction status: unspecified Qualified Code(s): A41.02 - Sepsis due to Methicillin resistant Staphylococcus aureus Code(s): A41.9 - Sepsis, unspecified organism Status: Acute Assessment and Plan: Management per and research support specialist. (6) Hypokalemia: Code(s): E87.6 - Hypokalemia Status: Acute Assessment and Plan: Supplementation as needed Subjective Date/time seen: 09/20/19 12:34 Interval history: Follow-up for: Atrial fibrillation with rapid ventricular response-converted normal sinus rhythm. Staph bacteremia Date of Service: Subjective: feeling better. She denies any chest pain or shortness of breath. is dealing with some anxiety Review of Systems Review of Systems: All systems reviewed & are unremarkable except as noted in HPI and below ROS unobtainable: unobtainable due to mental condition (On BiPAP. Very tired, not able to communicate much.) and unobtainable due to mental status Constitutional: Constitutional: Denies chills, Reports fatigue, Reports fever(s) and Denies headache(s) Eyes: Eyes: Reports as per HPI, Denies blurry vision, Denies change in vision, Denies loss of vision and Denies eye pain ENT: Reports as per HPI, Reports Normal hearing present, Denies headache(s), Denies lip swelling, Denies epistaxis and Denies sore throat Cardiovascular: Cardiovascular: Reports as per HPI, Denies chest pain, Denies syncope, Reports irregular heart rhythm, Denies lightheadedness and Reports dyspnea Respiratory: Respiratory: Reports as per HPI, Denies cough, Reports dyspnea and Reports wheezing Gastrointestinal: Gastrointestinal: Reports as per HPI, Denies abdominal pain, Denies melena, Denies nausea and Denies vomiting Genitourinary: Genitourinary: Reports as per HPI Musculoskeletal: Musculoskeletal: Reports no additional musculoskeletal complain
[2019-09-20] MEDS: NEOMYCIN/POLYMYXIN/BACITRACIN OINTMENT PACKET 1 PACKET (12:51)
--- NOTE | 2019-09-20 15:09 | PCPTNOTE ---
Attempted Therapy Session, Pt declined due to just receiving her lunch. Will continue with therapy tomorrow per plan of care.
[2019-09-20] MEDS: AMLODIPINE BESYLATE 5 MG TABLET PO (15:18)
--- NOTE | 2019-09-20 17:45 | PM.DS ---
DS: Diagnosis Admitting Diagnosis Admitting Diagnosis: Sepsis, unspecified organism Discharge Diagnosis (1) Septic shock: Code(s): A41.9 - Sepsis, unspecified organism; R65.21 - Severe sepsis with septic shock Status: Acute (2) Atrial fibrillation with RVR: Code(s): I48.91 - Unspecified atrial fibrillation Status: Acute (3) Acute and chronic respiratory failure: Qualifiers: Respiratory failure complication: hypoxia Qualified Code(s): J96.21 - Acute and chronic respiratory failure with hypoxia Code(s): J96.20 - Acute and chronic respiratory failure, unspecified whether with hypoxia or hypercapnia Status: Acute (4) HCAP (healthcare-associated pneumonia): Code(s): J18.9 - Pneumonia, unspecified organism Status: Acute (5) HTN (hypertension): Qualifiers: Hypertension type: essential hypertension Qualified Code(s): I10 - Essential (primary) hypertension Code(s): I10 - Essential (primary) hypertension Status: Chronic (6) Hypomagnesemia: Code(s): E83.42 - Hypomagnesemia Status: Acute (7) Anemia: Qualifiers: Anemia type: unspecified type Qualified Code(s): D64.9 - Anemia, unspecified Code(s): D64.9 - Anemia, unspecified Status: Chronic (8) Chronic hyponatremia: Code(s): E87.1 - Hypo-osmolality and hyponatremia Status: Acute (9) HLD (hyperlipidemia): Qualifiers: Hyperlipidemia type: unspecified Qualified Code(s): E78.5 - Hyperlipidemia, unspecified Code(s): E78.5 - Hyperlipidemia, unspecified Status: Chronic (10) Anxiety: Code(s): F41.9 - Anxiety disorder, unspecified Status: Chronic DS: Summary Hospital Course Reason for hospitalization: Shortness of breath and fever. Hospital Course: Date of Service of Discharge: September 20, 2019. History of Present Illness: Patient is a 68-year-old with multiple medical problems sent in from [facility] where she was recovering after recent right ankle and left tibia fracture repair. Patient was noted to have coughing with shortness of breath. She additionally had fever up to 104. No chest pain, abdominal pain, diarrhea, nausea or vomiting. With increasing respiratory difficulty, she was sent to the emergency room. In the emergency room, she was given nebulizer treatments. Findings were consistent with sepsis and pneumonia. As result, she was admitted for further evaluation and treatment. Course in Hospital: Patient was initially admitted to the ICU due to her tenuous status. She initially did require some Levophed but subsequently had elevation of blood pressure with Levophed discontinued very rapidly after admission and patient then requiring medication for elevated blood pressure. She was started on IV antibiotics in the form of vancomycin, ceftriaxone and azithromycin and IV fluids. She was also given nebulizer treatments and IV steroids. Blood cultures became positive for MRSA within the 1st 24 hours of admission. Infectious disease was consulted with patient's antibiotics streamlined to IV vancomycin as pneumonia was felt to be her most likely source for sepsis. Patient did also require BiPAP initially but was able to wean back to BiPAP only at night prior to discharge and still required oxygen during the day. Respiratory status steadily improved during her stay. ANNA was not felt necessary although patient did have transthoracic echocardiogram with no suspicious valvular disease. Decision was for patient to have long-term IV vancomycin for total of 42 days with treatment through 10/20/2019. PICC line was placed prior to the discharge. After patient was able to be transferred from the ICU, she did develop atrial fibrillation with RVR on 09/11/2019. She was initially placed on IV diltiazem but continued to have difficulties. Cardiology was consulted. Patient was imaging moved back to the
== END 2019-09-20 19:28 | DRG 871 ==
LOC: ANHED 16:16 → ANHICU 16:40 → ANH3MEDSUR 09-11 19:59 → ANHIMU 09-12 01:55 → ANHICU 09-12 10:02 → ANHIMU 09-18 19:01 → ANH3MED 09-19 21:27
PROVIDERS: Family Medicine; Internal Medicine; Nurse Practitioner; Nurse Practitioner Adult Health; Admitting Provider Hospitalist; Emergency Provider Emergency Medicine; Visit Provider Internal Medicine
DX: A41.02 Sepsis due to Methicillin resistant Staphylococcus aureus (principal); R65.21 Severe sepsis with septic shock; J18.9 Pneumonia, unspecified organism; J96.20 Acute and chronic respiratory failure, unspecified whether with hypoxia or hypercapnia; E87.1 Hypo-osmolality and hyponatremia; Z68.41 Body mass index [BMI] 40.0-44.9, adult; F32.9 Major depressive disorder, single episode, unspecified; E86.0 Dehydration; E83.42 Hypomagnesemia; E66.01 Morbid (severe) obesity due to excess calories; Z99.81 Dependence on supplemental oxygen; I48.91 Unspecified atrial fibrillation; F41.9 Anxiety disorder, unspecified
CPT/HCPCS: 36415; 36556; 36569; 36600; 51701; 71045; 73590; 80048; 80053; 80202; 81001; 82375; 82570; 82805; 83050; 83605; 83690; 83735; 84100; 84132; 84300; 84443; 84484; 85025; 85027; 85055; 85610; 85730; 86140; 87040; 87070; 87077; 87081; 87147; 87186; 87205; 87804; 93005; 93306; 93970; 94002; 94003; 94640; 96361; 96374; 96375; 97162; 97166; 97535; 99291; A9270; C1751; C9113; J0131; J0360; J0456; J0696; J1160; J1650; J1741; J1940; J2060; J2270; J2405; J2930; J3370; J3475; J3480; J7030; J7040; J7050; J7120

== ENCOUNTER 2019-10-18 19:55 | Emergency (ER) | payer MEDICARE, MEDICAID, SELFPAY ==
--- NOTE | ~2019-10-18 | XR_ITS ---
EXAMINATION: XR chest 1V portable DATE: 10/18/2019 20:06 INDICATION: Central line placement. TECHNIQUE: A single frontal view of the chest was obtained. COMPARISON: Chest single view 09/17/2019, 12/01/2016, CT abdomen and pelvis 10/31/2016 FINDINGS: The lungs demonstrated diffuse interstitial pattern with mild architectural distortion. The re are mild airspace opacities in left perihilar region. No pleural effusion or pneumothorax. The hea rt size is normal. A left upper extremity peripherally inserted central venous catheter (PICC) is see n with tip in the superior vena cava. IMPRESSION: 1. PICC tip in superior vena cava. 2. Diffuse lung disease with interval improvement, consistent with pneumonia. Reviewed, dictated and finalized at location A.
--- NOTE | 2019-10-18 19:57 | ED.GENADULT ---
HPI - General Adult General Chief complaint: Unspecified Stated complaint: pic line wont flush Time Seen by Provider: 10/18/19 19:57 Source: patient Mode of arrival: EMS Limitations: no limitations History of Present Illness HPI narrative: A 68 y/o female presents to the ED with c/o PICC line issues. Pt states that she had a PICC line placed in her left arm at [facility] for a blood infection. Last night the patient noticed that the PICC line was no longer flushing and has not since. She is currently prescribed Vancomycin. Pt denies N/V/D, ABD pain, CP, SOB, fever, and chills. complaint: PICC line issues Onset (ago): day(s) (1) Location: left and upper extremity Associated symptoms: denies other symptoms Related Data Home Medications Medication Instructions Recorded Confirmed Flovent HFA 1 puff INHALATION DAILY 09/09/19 09/09/19 atorvastatin 10 mg PO HS 09/09/19 09/09/19 cholecalciferol (vitamin D3) 400 unit PO DAILY 09/09/19 09/09/19 enoxaparin 40 mg SUBCUT DAILY 09/09/19 09/09/19 famciclovir 250 mg PO Q12H 09/09/19 09/09/19 fluticasone propionate 2 spray INTRANASAL DAILY 09/09/19 09/09/19 gabapentin 800 mg PO TID 09/09/19 09/09/19 lidocaine 1 patch TOPICAL DAILY 09/09/19 09/09/19 pantoprazole 40 mg PO HS 09/09/19 09/09/19 primidone 50 mg PO BID 09/09/19 09/09/19 senna 8.6 mg PO BID 09/09/19 09/09/19 vitamin E 800 unit PO DAILY 09/09/19 09/09/19 albuterol sulfate 10/18/19 Allergies Allergy/AdvReac Type Severity Reaction Status Date / Time Fish Containing Products Allergy Severe Dyspnea / Verified 10/18/19 20:21 SOB iodine Allergy Unknown Unknown Verified 10/18/19 20:21 Barbiturates Allergy Unknown Verified 10/18/19 20:21 diazepam [From Valium] Allergy Unknown Verified 10/18/19 20:21 latex Allergy Unknown Verified 10/18/19 20:21 Sulfa (Sulfonamide Allergy Unknown Verified 10/18/19 20:21 Antibiotics) sodium penathol Allergy Unknown Uncoded 10/18/19 20:21 Contrast Media AdvReac Intermediate Hives / Uncoded 10/31/16 16:33 Red Face Review of Systems Review of Systems: All systems reviewed & are unremarkable except as noted in HPI and below Constitutional: Constitutional: Denies chills and Denies fever(s) Cardiovascular: Cardiovascular: Denies chest pain Respiratory: Respiratory: Denies dyspnea Gastrointestinal: Gastrointestinal: Denies abdominal pain, Denies diarrhea, Denies nausea and Denies vomiting [facility] Past Medical History Medical History Anemia Ankle fracture, right ORIF of the right ankle Anxiety Asthma Chronic hyponatremia Depression Diverticulitis Epilepsy patient stated she did have a seizure for 10 years and was removed from her medicine. Gastroparesis GERD (gastroesophageal reflux disease) History of bipolar disorder History of home oxygen therapy 2L HLD (hyperlipidemia) HTN (hypertension) Left tibial fracture Meningoencephalitis Viral SANTI (obstructive sleep apnea) intolerant of his CPAP but she S/P ORIF (open reduction internal fixation) fracture left tibia and right ankle Seasonal allergies Shingles UTI (urinary tract infection) Surgical History Surgical History H/O: hysterectomy History of appendectomy History of knee replacement Left knee 3 times. History of tonsillectomy Family History Family History Mother Suicide Depression Heart disease Hypertension Heart failure Sibling Suicide Father Diabetes mellitus Emphysema lung Social History Social History Social History: patient tells me that she had 1 biological daughter and that she from cystic fibrosis at the age of 24. The patient tells me she wishes to be a full code. She states that 1 of her stepdaughter's is a power managing attorney for her. She has 6 stepchildren. She said she is single.
[2019-10-18 20:01] VITALS: BP 122/97; PULSE 105; RESP 20; O2SAT 99
[2019-10-18] MEDS: ALTEPLASE 2 MG VIAL (CATHFLO) IV PUSH (20:43)
--- NOTE | 2019-10-18 20:59 | PC.NURSE ---
spoke with house supervisior and pharmacy about cathflo policy. 2 cc infused into each port and will dwell for 2 hours
--- NOTE | 2019-10-18 21:23 | PC.NURSE ---
Pt here to have picc line fixed pt has no other complaints
[2019-10-18 21:26] VITALS: BP 161/78; PULSE 86; RESP 18; O2SAT 100
[2019-10-18 23:11] VITALS: BP 176/81; PULSE 89; RESP 12; O2SAT 100
--- NOTE | 2019-10-18 23:11 | PC.NURSE ---
Unable to removed 4.4 ml cathflow that was previously administered through the PICC line. EDP notified along w/ salesperson household appliances. No further orders at this time.
[2019-10-18 23:26] VITALS: BP 176/81; PULSE 88; RESP 19; TEMP 36.7; O2SAT 100
--- NOTE | 2019-10-18 23:38 | PC.NURSE ---
Pt to be d/c back to [facility] and they are instructed to continue Iv vancomycin via 20 G iv catheter started by this RN and pt is to return to get new picc line placed by [facility] IV specialist in the morning. EDP notified of this no further orders at this time.
--- NOTE | 2019-10-18 23:53 | PC.NURSE ---
Called [facility] to transport back to [place]...ETA [id number]
== END 2019-10-19 00:55 ==
PROVIDERS: Emergency Provider Emergency Medicine
DX: T82.598A Other mechanical complication of other cardiac and vascular devices and implants, initial encounter (principal); J45.909 Unspecified asthma, uncomplicated; E87.1 Hypo-osmolality and hyponatremia; K21.9 Gastro-esophageal reflux disease without esophagitis; Z99.81 Dependence on supplemental oxygen; E78.5 Hyperlipidemia, unspecified; I10 Essential (primary) hypertension; G47.33 Obstructive sleep apnea (adult) (pediatric); Z87.440 Personal history of urinary (tract) infections; Z96.652 Presence of left artificial knee joint; J98.4 Other disorders of lung
CPT/HCPCS: 37195; 71045; 99284; J2997

== ENCOUNTER 2020-04-20 18:49 | Emergency (ER) | payer MEDICARE, MEDICAID, SELFPAY ==
--- NOTE | ~2020-04-20 | XR_ITS ---
EXAMINATION: XR tibia fibula LT 2V INDICATION: Redness and swelling of the left leg TECHNIQUE: Two views of the left tibia and fibula are obtained. COMPARISON: 09/11/2019 FINDINGS: There is orthopedic hardware in the proximal tibia, the medial malleolus, and the distal fi bula. An oblique fracture of the proximal tibia demonstrates nonunion but improved healing since the comparison examination. There is a chronic oblique fracture of the proximal fibula with nonunion and mild increased healing since the comparison examination. Soft tissue swelling is seen anteriorly over the proximal tibia and fibula. Orthopedic hardware is also noted in the distal femur. IMPRESSION: 1. 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 Reviewed, dictated and finalized at location A. IMPRESSION: 1. 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
[2020-04-20 18:50] VITALS: BP 174/76; PULSE 103; RESP 20; TEMP 37; O2SAT 99
[2020-04-20 19:34] LABS: Basophils Absolute Auto 0.1 K/mm3 (0.0-0.1); Basophils Percent Auto 0.7 % (0.2-1.2); Eosinophils Absolute Auto 0.2 K/mm3 (0-0.3); Eosinophils Percent Auto 2.7 % (0-4.4); Hematocrit 37.6 % (37.0-47.0); Hemoglobin 12.9 g/dL (12.0-15.0); Immature Granulocyte Absolute 0.06 K/mm3 (0.00-0.031); Immature Granulocyte Percent A 0.7 % (0-0.5); Lymphocytes Absolute Auto 2.89 K/mm3 (0.9-3.2); Lymphocytes Percent Auto 33.1 % (18.3-44.2); Mean Corpuscular HGB Conc 34.3 g/dl (32-36); Mean Corpuscular Hemoglobin 31.7 pg (26-34); Mean Corpuscular Volume 92.4 fl (80-100); Mean Platelet Volume 10.6 fl (7.4-10.4); Monocytes Absolute Auto 0.8 K/mm3 (0.1-0.6); Monocytes Percent Auto 9.2 % (2.6-8.5); Neutrophils Absolute Auto 4.7 K/mm3 (1.3-6.7); Neutrophils Percent Auto 53.6 % (45.5-73.1); Platelet Count Result 220 k/mm3 (150-375); Red Blood Count 4.07 M/mm3 (4.2-5.4); Red Cell Distribution Width 12.7 % (11.5-14.5); White Blood Count 8.7 K/mm3 (4.5-10.0)
[2020-04-20 19:47] LABS: Lactic Acid Reflex 1.3 mmol/L (0.7-2.1)
[2020-04-20 19:54] LABS: Anion Gap 10 mmol/L (8-16); Blood Urea Nitrogen 18 mg/dL (7-17); CRP < 0.5 mg/dL (<1.0); Carbon Dioxide 28 mmol/L (22-30); Chloride 94 mmol/L (98-107); Estimated Glomerular Filt Rate > 60; Glucose 141 mg/dL (65-105); Potassium 4.3 mmol/L (3.4-5.0); Sodium 132 mmol/L (137-145)
[2020-04-20 20:17] LABS: Add Urine Microscopic? YES; Appearance Urine Clear (Clear); Bacteria Urine Trace /hpf; Bilirubin Urine Negative (Negative); Color Urine Straw (Yellow); Glucose Urine UA Negative (Negative); Ketones Urine Negative (Negative); Leukocyte Esterase Ur 2+ LEU/UL (Negative); Nitrate Urine Negative (Negative); Protein Urine Negative (Negative); RBC Urine 0-2 /hpf (0-2); Specific Grav Ur 1.009 (1.001-1.035); Squamous Epithelial Cell Urine Occasional /hpf (Few); Urobilinogen Urine Negative mg/dL (<2.0); WBC Urine 21-30 /hpf
[2020-04-20 20:20] LABS: Blood Urine Negative (Negative)
--- NOTE | 2020-04-20 20:35 | ED.GENADULT ---
HPI - General Adult General Chief complaint: Wound/Laceration Stated complaint: L leg infection Time Seen by Provider: 04/20/20 19:27 Source: RN notes reviewed History of Present Illness HPI narrative: Patient presents emergency department from [facility] for cellulitis. Patient states that beginning 2 days ago she began to notice some erythema over her left lower leg. Patient had a previous broken leg and surgical repair and states that since this occurred approximately 1 year ago she is had 2 previous episodes of cellulitis in the same region of the leg that are both resolved with oral antibiotics. She started she began to notice this area 2 days ago with mild worsening of the erythema and came for further evaluation. She denies any new trauma or injury denies any fevers or chills chest pain shortness of breath but is chronically on 4 L nasal cannula. Patient's only other complaint is she has noted frequent urination she denies any abdominal pain nausea vomiting diarrhea or any other symptoms. Patient states his current episode of erythema on her leg is consistent with her 2 previous episodes of cellulitis Related Data Home Medications Medication Instructions Recorded Confirmed Flovent HFA 1 puff INHALATION DAILY 09/09/19 09/09/19 atorvastatin 10 mg PO HS 09/09/19 09/09/19 cholecalciferol (vitamin D3) 400 unit PO DAILY 09/09/19 09/09/19 enoxaparin 40 mg SUBCUT DAILY 09/09/19 09/09/19 famciclovir 250 mg PO Q12H 09/09/19 09/09/19 fluticasone propionate 2 spray INTRANASAL DAILY 09/09/19 09/09/19 gabapentin 800 mg PO TID 09/09/19 09/09/19 lidocaine 1 patch TOPICAL DAILY 09/09/19 09/09/19 pantoprazole 40 mg PO HS 09/09/19 09/09/19 primidone 50 mg PO BID 09/09/19 09/09/19 senna 8.6 mg PO BID 09/09/19 09/09/19 vitamin E 800 unit PO DAILY 09/09/19 09/09/19 albuterol sulfate 10/18/19 Allergies Allergy/AdvReac Type Severity Reaction Status Date / Time Fish Containing Products Allergy Severe Dyspnea / Verified 04/20/20 18:54 SOB iodine Allergy Unknown Unknown Verified 04/20/20 18:54 Barbiturates Allergy Unknown Verified 04/20/20 18:54 diazepam [From Valium] Allergy Unknown Verified 04/20/20 18:54 latex Allergy Unknown Verified 04/20/20 18:54 Sulfa (Sulfonamide Allergy Unknown Verified 04/20/20 18:54 Antibiotics) sodium penathol Allergy Unknown Uncoded 04/20/20 18:54 Contrast Media AdvReac Intermediate Hives / Uncoded 04/20/20 18:54 Red Face Review of Systems Review of Systems: Narrative: Gen.: Denies fevers or chills ENT: Denies congestion Respiratory: Denies shortness of breath or cough CV: Denies chest pain or palpitations GI: Denies abdominal pain nausea, emesis or diarrhea see HPI Musculoskeletal: Denies back pain or muscle pain Neuro: Denies numbness, tingling, weakness or focal weakness Skin: See HPI Except as documented, all other systems reviewed and negative PMFSH Past Medical History Medical History Anemia Ankle fracture, right ORIF of the right ankle Anxiety Asthma Chronic hyponatremia Depression Diverticulitis Epilepsy patient stated she did have a seizure for 10 years and was removed from her medicine. Gastroparesis GERD (gastroesophageal reflux disease) History of bipolar disorder History of home oxygen therapy 2L HLD (hyperlipidemia) HTN (hypertension) Left tibial fracture Meningoencephalitis Viral SANTI (obstructive sleep apnea) intolerant of his CPAP but she S/P ORIF (open reduction internal fixation) fracture left tibia and right ankle Seasonal allergies Shingles UTI (urinary tract infection) Social History Social History Social History: patient tells me that she had 1 biological daughter and that she from cystic fibrosis at the age of 24. The patient tells me she wishes to be a full code. She states that 1 of her stepdaughter's is a power attorney lawyer for her. She
--- NOTE | 2020-04-20 21:01 | PC.NURSE ---
called [facility] for transport. ETA [id number]
[2020-04-20] MEDS: CEPHALEXIN 500 MG CAPSULE PO (21:24)
[2020-04-20 21:26] VITALS: BP 149/88; PULSE 89; RESP 18; O2SAT 96
[2020-04-20 22:26] VITALS: BP 170/87; PULSE 96; RESP 17; O2SAT 100
== END 2020-04-20 22:27 | disposition home or self-care (01) ==
PROVIDERS: Emergency Medicine; Emergency Provider Emergency Medicine
DX: L03.116 Cellulitis of left lower limb (principal); N39.0 Urinary tract infection, site not specified; J45.909 Unspecified asthma, uncomplicated; E87.1 Hypo-osmolality and hyponatremia; K21.9 Gastro-esophageal reflux disease without esophagitis; E78.5 Hyperlipidemia, unspecified; I10 Essential (primary) hypertension; G47.33 Obstructive sleep apnea (adult) (pediatric); Z99.81 Dependence on supplemental oxygen; Z86.2 Personal history of diseases of the blood and blood-forming organs and certain disorders involving the immune mechanism
CPT/HCPCS: 36415; 73590; 80048; 81001; 83605; 85025; 86140; 87040; 87077; 87086; 87088; 87186; 99283; A9270

== ENCOUNTER 2020-05-31 12:46 | Emergency (ER) | payer MEDICARE, MEDICAID, SELFPAY ==
--- NOTE | ~2020-05-31 | US_ITS ---
EXAMINATION: US venous doppler [facility] DATE: 05/31/2020 13:24 INDICATION: Left lower limb swelling TECHNIQUE: Oneil scale images without and with compression and Doppler images of the left lower extrem ity veins were obtained. COMPARISON: 09/12/2019 FINDINGS: The left common femoral vein, profunda femoral vein, femoral vein, popliteal vein, peroneal trunk, posterior tibial veins, and greater saphenous vein are patent. IMPRESSION: 1. Patent left lower extremity veins. No evidence of deep venous thrombosis. Reviewed, dictated and finalized at location A. E [facility]ENER
[2020-05-31 12:46] VITALS: BP 161/102; PULSE 72; RESP 18; TEMP 37.1; O2SAT 100
--- NOTE | 2020-05-31 12:59 | ED.LOWEXIN ---
HPI - Extremity Injury (Lower) General Chief Complaint: Extremity Injury, Lower Stated Complaint: LLL infection Time Seen by Provider: 05/31/20 12:57 Source: patient Mode of arrival: EMS Limitations: no limitations History of Present Illness HPI Narrative: Patient is a 69-year-old female complaining of left leg pain swelling and redness that started approximately 3 days ago. Patient states that she has a history of infection in that leg. Patient states that she has a history of surgery in that leg, had a tib-fib fracture months ago. Denies any chest pain, shortness of breath, fever or chills. Related Data Home Medications Medication Instructions Recorded Confirmed Flovent HFA 1 puff INHALATION DAILY 09/09/19 09/09/19 atorvastatin 10 mg PO HS 09/09/19 09/09/19 cholecalciferol (vitamin D3) 400 unit PO DAILY 09/09/19 09/09/19 famciclovir 250 mg PO Q12H 09/09/19 09/09/19 fluticasone propionate 2 spray INTRANASAL DAILY 09/09/19 09/09/19 gabapentin 1,200 mg PO TID 09/09/19 09/09/19 lidocaine 1 patch TOPICAL DAILY 09/09/19 09/09/19 pantoprazole 40 mg PO HS 09/09/19 09/09/19 primidone 50 mg PO BID 09/09/19 09/09/19 senna 8.6 mg PO BID 09/09/19 09/09/19 vitamin E 800 unit PO DAILY 09/09/19 09/09/19 ascorbate calcium (vitamin C) 500 mg PO BID 05/31/20 bisacodyl 10 mg PO ONCE 05/31/20 cholecalciferol (vitamin D3) 1,250 mcg PO WEEKLY 05/31/20 clindamycin HCl 300 mg PO Q6H 05/31/20 docusate sodium 100 mg PO DAILY PRN 05/31/20 ferrous sulfate 325 mg PO BID 05/31/20 furosemide 20 mg PO BID 05/31/20 melatonin 5 mg PO HS 05/31/20 ondansetron 4 mg PO Q8H 05/31/20 oxycodone-acetaminophen 05/31/20 sodium chloride [[place] Nasal] 2 spray INTRANASAL QID PRN 05/31/20 spironolactone 05/31/20 Allergies Allergy/AdvReac Type Severity Reaction Status Date / Time Fish Containing Products Allergy Severe Dyspnea / Verified 05/31/20 12:52 SOB iodine Allergy Unknown Unknown Verified 05/31/20 12:52 Barbiturates Allergy Unknown Verified 05/31/20 12:52 diazepam [From Valium] Allergy Unknown Verified 05/31/20 12:52 latex Allergy Unknown Verified 05/31/20 12:52 Sulfa (Sulfonamide Allergy Unknown Verified 05/31/20 12:52 Antibiotics) sodium penathol Allergy Unknown Uncoded 05/31/20 12:52 Contrast Media AdvReac Intermediate Hives / Uncoded 05/31/20 12:52 Red Face Review of Systems Review of Systems: All systems reviewed & are unremarkable except as noted in HPI and below Constitutional: Constitutional: Denies body ache(s), Denies chills, Denies excessive sweating, Denies fatigue, Denies fever(s), Denies headache(s), Denies lethargy, Denies malaise, Denies weakness and Denies weight loss Eyes: Eyes: Denies blurry vision, Denies change in vision and Denies loss of vision ENT: Denies dizziness, Denies ear discharge, Denies headache(s), Denies lip swelling, Denies epistaxis, Denies nasal congestion, Denies neck pain, Denies throat swelling and Denies tongue swelling Cardiovascular: Cardiovascular: Denies chest pain, Denies chest pain at rest, Denies chest pain with activity, Denies diaphoresis, Denies rapid heart rate, Denies edema, Denies irregular heart rhythm, Denies lightheadedness, Denies palpitations, Denies dyspnea and Denies dyspnea on exertion Respiratory: Respiratory: Denies chest congestion, Denies cough, Denies hemoptysis, Denies dyspnea and Denies dyspnea on exertion Gastrointestinal: Gastrointestinal: Denies abdominal pain, Denies melena, Denies hematochezia, Denies diarrhea, Denies nausea, Denies vomiting and Denies hematemesis Musculoskeletal: Musculoskeletal: Denies abnormal gait, Denies deformity, Denies joint swelling, Denies limited range of motion, Denies neck pain and Denies numbness Neurologic: Denies Abnormal speech present, Denies abnormal gait, Denies confusion, Denies dizziness, Denies headache(s), Denies focal weakness, Denies loss of vision, Denies numbness, Denies Other visual disturbances, Denies Sensory defi
[2020-05-31 13:33] LABS: Basophils Absolute Auto 0.1 K/mm3 (0.0-0.1); Basophils Percent Auto 0.8 % (0.2-1.2); Eosinophils Absolute Auto 0.3 K/mm3 (0-0.3); Eosinophils Percent Auto 3.1 % (0-4.4); Hematocrit 34.9 % (37.0-47.0); Hemoglobin 11.9 g/dL (12.0-15.0); Immature Granulocyte Absolute 0.07 K/mm3 (0.00-0.031); Immature Granulocyte Percent A 0.9 % (0-0.5); Lymphocytes Percent Auto 25.2 % (18.3-44.2); Mean Corpuscular HGB Conc 34.1 g/dl (32-36); Mean Corpuscular Hemoglobin 31.8 pg (26-34); Mean Corpuscular Volume 93.3 fl (80-100); Mean Platelet Volume 10.2 fl (7.4-10.4); Monocytes Absolute Auto 0.9 K/mm3 (0.1-0.6); Monocytes Percent Auto 11.7 % (2.6-8.5); Neutrophils Absolute Auto 4.6 K/mm3 (1.3-6.7); Neutrophils Percent Auto 58.3 % (45.5-73.1); Platelet Count Result 223 k/mm3 (150-375); Red Blood Count 3.74 M/mm3 (4.2-5.4); Red Cell Distribution Width 12.6 % (11.5-14.5); White Blood Count 7.9 K/mm3 (4.5-10.0)
[2020-05-31 13:45] LABS: Anion Gap 6 mmol/L (8-16); Blood Urea Nitrogen 19 mg/dL (7-17); Calcium 8.9 mg/dL (8.4-10.2); Carbon Dioxide 32 mmol/L (22-30); Chloride 94 mmol/L (98-107); Estimated CRCL calculation 63 ml/min; Estimated Glomerular Filt Rate > 60; Glucose 105 mg/dL (65-105); Potassium 4.8 mmol/L (3.4-5.0); Sodium 132 mmol/L (137-145)
[2020-05-31 15:27] VITALS: BP 158/89; PULSE 76; RESP 16; O2SAT 99
--- NOTE | 2020-05-31 16:34 | PC.NURSE ---
PT AWARE OF D/C PLAN, AWAITING EMS, NO FURTHER CONCERNS.
[2020-05-31 17:57] VITALS: BP 138/75; PULSE 72; RESP 16; O2SAT 99
--- NOTE | 2020-05-31 17:58 | PC.NURSE ---
ATTEMPTED TO CONTACT RN AT FACILITY FOR REPORT, NO ANSWER, STAFF MEMBER SIMONA TOOK NOTE.
== END 2020-05-31 18:00 ==
PROVIDERS: Emergency Provider Emergency Medicine
DX: L03.116 Cellulitis of left lower limb (principal); D64.9 Anemia, unspecified; J45.909 Unspecified asthma, uncomplicated; E87.1 Hypo-osmolality and hyponatremia; K31.84 Gastroparesis; K21.9 Gastro-esophageal reflux disease without esophagitis; E78.5 Hyperlipidemia, unspecified; I10 Essential (primary) hypertension; G47.33 Obstructive sleep apnea (adult) (pediatric); Z87.440 Personal history of urinary (tract) infections; Z96.652 Presence of left artificial knee joint
CPT/HCPCS: 36415; 80048; 85025; 93971; 99284

== ENCOUNTER 2020-07-05 07:04 | Emergency (ER) | payer MEDICARE, MEDICAID, SELFPAY ==
[2020-07-05] VITALS (8 sets, daily range): BP systolic 116–149; BP diastolic 53–107; PULSE 85–100; RESP 13–19; TEMP 36.6; O2SAT 98–100
--- NOTE | ~2020-07-05 | XR_ITS ---
EXAMINATION: XR tibia fibula LT 2V DATE: 07/05/2020 08:17 INDICATION: Left lower leg pain, swelling and erythema TECHNIQUE: Anteroposterior and lateral views of the left tibia and fibula were obtained. COMPARISON: 04/20/2020, 09/11/2019 and 11/03/2016 FINDINGS: Postoperative changes of a likely revision left total knee arthroplasty. Internal fixation with a trent g medial plate and screws and shorter anterior plate and screws spanning an oblique periprosthetic fr acture in the proximal left tibial diaphysis. There is increase in mild bowing of the third most caud al screw for the lateral plate and screw fixation is positioned immediately caudal to the tip of the tibial component of the arthroplasty. This is new since the initial postoperative radiographs suggest ing the deformity is secondary to subsidence of the tibial component of the arthroplasty. There appea rs to be new osteolysis about the proximal most screws of the medial plate and screw fixation which r aises concern for osteomyelitis. There is increasing sclerosis across the still discernible lucent fr acture plane, unclear whether there is solid bridging. There also appears to be interval healing at a mildly comminuted fracture of the proximal left fibula r diaphysis with bridging callus formation extending to a small lateral sided butterfly fragment whic h is displaced approximate 4 mm laterally. Both the tibial and fibular fractures are healing with pro ximally 5 degree lateral angulation. There is a second healing nondisplaced fracture at the proximal fibular metadiaphysis. Or chronic healed fractures of the distal tibia and fibula in essentially anatomic alignment, the for maricel with cannulated leg screw extending across the medial malleolus and the latter with an interfragm entary screw and lateral plate and screw fixation. There is also chronic periosteal reaction along th e lateral cortex of the mid tibial diaphysis near a small intraosseous metallic foreign body which wa s present prior to the fracture and fixation. No acute fractures identified. IMPRESSION: 1. New osteolysis at the medial side of the metaphyseal region of the proximal left tibia raising con cern for osteomyelitis. 2. Potentially secondary loosening of the internal fixation of a periprosthetic fracture of the proxi mal left tibia with increasing bowing of one of the screws near the tip of the tibial component of a total knee arthroplasty suggesting increasing subsidence of the tibial component. 3. Healing comminuted fracture of the proximal left fibula. Reviewed, dictated and finalized at location A. [facility] IMPRESSION: 1. New osteolysis at the medial side of the metaphyseal region of the proximal left tibia raising concern for osteomyelitis. 2. Potentially secondary loosening of the internal fixation of a periprosthetic fracture of the proximal left tibia with increasing bowing of one of the screw s near the tip of the tibial component of a total knee arthroplasty suggesting increasing subsidence of the tibial component. 3. Healing comminuted fracture of the proximal left fibula.
--- NOTE | 2020-07-05 07:41 | ED.GENADULT ---
HPI - General Adult General Chief complaint: Extremity Injury, Lower Stated complaint: LEG WOUND Source: RN notes reviewed History of Present Illness HPI narrative: Patient presents to emergency department from home for left leg wound. Patient states that wound began several days ago and states is progressively gotten worse with surrounding erythema as well as purulent drainage today. Patient states she has a history of a midshaft tibia fracture approximately 1 year ago that was open she states that since that time she has had some recurrent episodes of infection over the lower leg usually treated with antibiotics with improvement she was recently diagnosed with Covid is well at her current ECF she is on 4 L nasal cannula which she states she always wears she denies any fevers or chills chest pain or any other symptoms at this time Related Data Home Medications Medication Instructions Recorded Confirmed Flovent HFA 1 puff INHALATION DAILY 09/09/19 09/09/19 atorvastatin 10 mg PO HS 09/09/19 09/09/19 cholecalciferol (vitamin D3) 400 unit PO DAILY 09/09/19 09/09/19 famciclovir 250 mg PO Q12H 09/09/19 09/09/19 fluticasone propionate 2 spray INTRANASAL DAILY 09/09/19 09/09/19 gabapentin 1,200 mg PO TID 09/09/19 09/09/19 lidocaine 1 patch TOPICAL DAILY 09/09/19 09/09/19 pantoprazole 40 mg PO HS 09/09/19 09/09/19 primidone 50 mg PO BID 09/09/19 09/09/19 senna 8.6 mg PO BID 09/09/19 09/09/19 vitamin E 800 unit PO DAILY 09/09/19 09/09/19 ascorbate calcium (vitamin C) 500 mg PO BID 05/31/20 bisacodyl 10 mg PO ONCE 05/31/20 cholecalciferol (vitamin D3) 1,250 mcg PO WEEKLY 05/31/20 clindamycin HCl 300 mg PO Q6H 05/31/20 docusate sodium 100 mg PO DAILY PRN 05/31/20 ferrous sulfate 325 mg PO BID 05/31/20 furosemide 20 mg PO BID 05/31/20 melatonin 5 mg PO HS 05/31/20 ondansetron 4 mg PO Q8H 05/31/20 oxycodone-acetaminophen 05/31/20 sodium chloride [[place] Nasal] 2 spray INTRANASAL QID PRN 05/31/20 spironolactone 05/31/20 Allergies Allergy/AdvReac Type Severity Reaction Status Date / Time Fish Containing Products Allergy Severe Dyspnea / Verified 05/31/20 12:52 SOB iodine Allergy Unknown Unknown Verified 05/31/20 12:52 Barbiturates Allergy Unknown Verified 05/31/20 12:52 diazepam [From Valium] Allergy Unknown Verified 05/31/20 12:52 latex Allergy Unknown Verified 05/31/20 12:52 Sulfa (Sulfonamide Allergy Unknown Verified 05/31/20 12:52 Antibiotics) sodium penathol Allergy Unknown Uncoded 05/31/20 12:52 Contrast Media AdvReac Intermediate Hives / Uncoded 05/31/20 12:52 Red Face Review of Systems Review of Systems: Narrative: Gen.: Denies fevers or chills ENT: Denies congestion Respiratory: Denies shortness of breath or cough CV: Denies chest pain or palpitations GI: Denies abdominal pain nausea, emesis or diarrhea Musculoskeletal: Denies back pain or muscle pain Neuro: Denies numbness, tingling, weakness or focal weakness Skin: See HPI Except as documented, all other systems reviewed and negative PMFSH Past Medical History Medical History (Updated 07/05/20 @ 13:57 by Feng Gandhi DO) Anemia Ankle fracture, right ORIF of the right ankle Anxiety Asthma Chronic hyponatremia Depression Diverticulitis Epilepsy patient stated she did have a seizure for 10 years and was removed from her medicine. Gastroparesis GERD (gastroesophageal reflux disease) History of bipolar disorder History of home oxygen therapy 2L HLD (hyperlipidemia) HTN (hypertension) Left tibial fracture Meningoencephalitis Viral SANTI (obstructive sleep apnea) intolerant of his CPAP but she S/P ORIF (open reduction internal fixation) fracture left tibia and right ankle Seasonal allergies Shingles UTI (urinary tract infection) Surgical History Surgical History H/O: hysterectomy History of appendectomy History of knee replacement Left knee 3 times. History of tonsillecto
[2020-07-05 07:53] LABS: Hematocrit 32.6 % (37.0-47.0); Hemoglobin 11.3 g/dL (12.0-15.0); Mean Corpuscular HGB Conc 34.7 g/dl (32-36); Mean Corpuscular Hemoglobin 31.7 pg (26-34); Mean Corpuscular Volume 91.6 fl (80-100); Mean Platelet Volume 9.4 fl (7.4-10.4); Platelet Count Result 424 k/mm3 (150-375); Red Blood Count 3.56 M/mm3 (4.2-5.4); Red Cell Distribution Width 11.4 % (11.5-14.5); White Blood Count 25.6 K/mm3 (4.5-10.0)
[2020-07-05 08:01] LABS: INR 1.1; Prothrombin Time 15.2 Seconds (11.1-14.7)
[2020-07-05 08:02] LABS: Partial Thromboplastin Time 32.6 SECONDS (22.3-36.8)
[2020-07-05 08:05] LABS: Alanine Aminotransferase 31 U/L (4-35); Albumin Level 3.4 g/dL (3.5-5.1); Alkaline Phosphatase 221 U/L (38-126); Anion Gap 12 mmol/L (8-16); Aspartate Amino Transferase 47 U/L (14-36); Bilirubin,Total 0.6 mg/dL (0.2-1.3); Blood Urea Nitrogen 18 mg/dL (7-17); Calcium 8.7 mg/dL (8.4-10.2); Carbon Dioxide 25 mmol/L (22-30); Chloride 86 mmol/L (98-107); Estimated CRCL calculation 48 ml/min; Estimated Glomerular Filt Rate 55; Glucose 118 mg/dL (65-105); Potassium 3.6 mmol/L (3.4-5.0); Sodium 123 mmol/L (137-145)
[2020-07-05 08:13] LABS: Band Neutrophils Percent 5 % (0-6); Metamyelocytes Percent 3 %; Monocytes Absolute Manual 0.51 K/mm3 (0.1-0.90); Monocytes Percent Manual 2 % (3-9); Neutrophils Absolute Manual 22.01 K/mm3 (1.7-7.2); Neutrophils Percent Manual 81 % (46-73); Total Cells Counted 100
[2020-07-05 08:14] LABS: Platelet Estimate Increased (Adequate)
[2020-07-05 08:35] LABS: Lactic Acid Reflex 0.7 mmol/L (0.7-2.1)
[2020-07-05] MEDS: SODIUM CHLORIDE 0.9% IV 1,000 ML 100 ML IV CONT (10:30)
--- NOTE | 2020-07-05 11:01 | PC.NURSE ---
[facility] transfer center called for patient update
--- NOTE | 2020-07-05 11:39 | PC.NURSE ---
[facility] declined transfer to [facility] accepted transfer to [facility] [address] Trip # [id number]
[2020-07-05] MEDS: traMADol HCL (*CRX) 50 MG TABLET PO (14:11)
--- NOTE | 2020-07-15 15:26 | PC.NURSE ---
LATE ENTRY This note is being entered to document information to the patient's record. The following information was omitted on [07/05/10], by [Tavia Bergman] Patient's NS stop time at 1436..
== END 2020-07-05 14:36 | disposition short-term general hospital (02) ==
PROVIDERS: Emergency Provider Emergency Medicine; PCP General Practice
DX: U07.1 COVID-19 (principal); M86.8X6 Other osteomyelitis, lower leg; E87.1 Hypo-osmolality and hyponatremia; A41.89 Other specified sepsis; D64.9 Anemia, unspecified; J45.909 Unspecified asthma, uncomplicated; K31.84 Gastroparesis; K21.9 Gastro-esophageal reflux disease without esophagitis; Z99.81 Dependence on supplemental oxygen; E78.5 Hyperlipidemia, unspecified; I10 Essential (primary) hypertension; Z87.440 Personal history of urinary (tract) infections; Z96.652 Presence of left artificial knee joint
CPT/HCPCS: 36415; 73590; 80053; 83605; 85025; 85610; 85730; 87040; 87070; 87075; 87077; 87186; 87205; 96361; 96365; 96367; 99285; A9270; J0131; J3370; J7030

== ENCOUNTER 2021-02-19 13:54 | Inpatient (IN) | payer MEDICARE, MEDICAID, SELFPAY ==
[2021-02-19] VITALS (16 sets, daily range): BP systolic 110–147; BP diastolic 59–77; PULSE 72–100; RESP 13–21; TEMP 33.8–36; O2SAT 85–100; BMI 34.7
--- NOTE | ~2021-02-19 | XR_ITS ---
EXAMINATION: XR chest 1V portable DATE: 02/19/2021 14:21 INDICATION: Altered mental status TECHNIQUE: frontal view of the chest was obtained. COMPARISON: Chest radiograph dated 10/18/2019 FINDINGS: Lung volumes remain small. Persistent increased interstitial pattern in the mid to lower lung zones w ith resolution the upper lung zones. No pleural effusion or pneumothorax.. The cardiomediastinal silh ouette is within normal limits for AP technique. Mitral annular calcification. IMPRESSION: 1. Small lung volumes with increased interstitial pattern unchanged the bilateral mid and lower lung zones but with improvement in the upper lung zones which could represent mild pulmonary edema or pneu monia. Reviewed, dictated and finalized at location A. IMPRESSION: 1. Small lung volumes with increased interstitial pattern unchanged the bilater al mid and lower lung zones but with improvement in the upper lung zones which could represent mild pulmonary edema or pneumonia.
--- NOTE | ~2021-02-19 | CT_ITS ---
EXAMINATION: CT brain wo con EXAM DATE: 02/19/2021 15:06 INDICATION: Transient alteration of awareness and confusion. TECHNIQUE: Spiral CT of the head was performed without contrast. Axial, coronal and sagittal images were reviewed. The dose-length product (DLP) for this examination was 605.33 mGy-cm. The exposure w as tailored according to patient size, and iterative reconstruction (ASIR) was used as additional dos e reduction technique. Comparison is made to prior examination from 10/31/2016. FINDINGS: Interval development of chronic appearing small to moderate bilateral cerebellar infarction s. There is no acute intraparenchymal hemorrhage. No evidence of intraparenchymal brain mass lesion. No evidence of acute infarction. Please note that initial head CT has limited sensitivity for smal l or acute infarctions. There is mild periventricular and subcortical hypodensity, nonspecific but pr obably related to small vessel ischemic disease. There is moderate prominence of the sulci and vent ricles related to cerebral atrophy. There is intracranial carotid arteriosclerosis. There are no e xtra-axial collections. There is no mass effect or midline shift. The orbits are unremarkable. Sof t tissue is unremarkable. The visualized sinuses and mastoid air cells are well aerated. IMPRESSION: 1. No acute intracranial findings. 2. Chronic age related findings. 3. Chronic bilateral cerebellar infarctions. Reviewed, dictated and finalized at location B.
--- NOTE | ~2021-02-19 | XR_ITS ---
EXAMINATION: XR chest 1V portable DATE: 02/22/2021 06:25 INDICATION: Shortness of breath TECHNIQUE: frontal view of the chest was obtained. COMPARISON: Chest radiograph dated 02/19/21 FINDINGS: The lungs are clear with no focal airspace opacities, pulmonary edema, pleural effusion or pneumothor ax. The cardiomediastinal silhouette is normal. Atherosclerotic calcification at the aortic arch and mitral annular calcification. IMPRESSION: 1. No acute cardiopulmonary disease. Reviewed, dictated and finalized at location A.
--- NOTE | 2021-02-19 14:10 | ECG_ITS ---
Measurements Intervals [place] Rate: 82 P: 27 [place]: 179 QRS: -28 QRSD: 101 T: 65 QT: 409 QTc: 478 Interpretive Statements SINUS RHYTHM LEFT VENTRICULAR HYPERTROPHY POOR R WAVE PROGRESSION, ANTERIOR LEADS MINIMAL Q WAVES- HIGH LATERAL LEADS BORDERLINE ECG Electronically Signed On 02-19-2021 15:15:06 CDT by Balaji Gomez D.O.
[2021-02-19 14:25] LABS: Alveolar/Arterial O2 Gradient 109.9 mmHg; Base Excess ABG 2.9 mEq/l (+/-2.0); Fractional Inspired Oxygen 36 %; HCO3 ABG 30.5 mEq/l (22.0-26.0); Oxygen Content ABG 18.5 %vol (16.0-22.0); Oxygen Saturation ABG 94.4 % (95.0-100.0); PCO2 ABG 59.4 mmHg (35.0-45.0); PO2 ABG 77.9 mmHg (80.0-100.0); PO2 FiO2 Ratio Arterial Blood 2.16 %; Total Hemoglobin 14.1 g/dL (12.0-18.0); pH ABG 7.328 (7.350-7.450)
[2021-02-19 14:26] LABS: Modified Allen's Test Pass; Site Drawn LEFT RADIAL
[2021-02-19 14:27] LABS: Device NASAL CANNULA
[2021-02-19 14:56] LABS: Add Urine Microscopic? YES; Appearance Urine Cloudy (Clear); Bacteria Urine Trace /hpf; Bilirubin Urine 1+ (Negative); Blood Urine Negative (Negative); Color Urine Amber (Yellow); Glucose Urine UA Negative (Negative); Ketones Urine Negative (Negative); Leukocyte Esterase Ur Negative LEU/UL (Negative); Mucus Urine Rare /lpf; Nitrate Urine Negative (Negative); Protein Urine 2+ mg/dL (Negative); RBC Urine 0-2 /hpf (0-2); Specific Grav Ur 1.019 (1.001-1.035); Squamous Epithelial Cell Urine Rare /hpf (Few); WBC Urine 0-3 /hpf
[2021-02-19 15:04] LABS: Alanine Aminotransferase 52 U/L (4-35); Albumin Level 4.7 g/dL (3.5-5.1); Alkaline Phosphatase 124 U/L (38-126); Anion Gap 11 mmol/L (8-16); Aspartate Amino Transferase 42 U/L (14-36); Bilirubin,Total 0.3 mg/dL (0.2-1.3); Blood Urea Nitrogen 49 mg/dL (7-17); Calcium 9.1 mg/dL (8.4-10.2); Carbon Dioxide 31 mmol/L (22-30); Chloride 97 mmol/L (98-107); Estimated CRCL calculation 14 ml/min; Estimated Glomerular Filt Rate 14; Glucose 118 mg/dL (65-110); Potassium 4.3 mmol/L (3.4-5.0); Sodium 139 mmol/L (137-145)
[2021-02-19 15:08] LABS: Basophils Percent Auto 0.6 % (0.2-1.2); Eosinophils Absolute Auto 0.2 K/mm3 (0-0.3); Eosinophils Percent Auto 3.2 % (0-4.4); Hematocrit 41.1 % (37.0-47.0); Hemoglobin 13.5 g/dL (12.0-15.0); Immature Granulocyte Absolute 0.05 K/mm3 (0.00-0.031); Immature Granulocyte Percent A 0.8 % (0-0.5); Lymphocytes Absolute Auto 1.76 K/mm3 (0.9-3.2); Lymphocytes Percent Auto 27.1 % (18.3-44.2); Mean Corpuscular HGB Conc 32.8 g/dl (32-36); Mean Corpuscular Hemoglobin 30.1 pg (26-34); Mean Corpuscular Volume 91.7 fl (80-100); Mean Platelet Volume 10.7 fl (7.4-10.4); Monocytes Absolute Auto 0.8 K/mm3 (0.1-0.6); Neutrophils Absolute Auto 3.7 K/mm3 (1.3-6.7); Neutrophils Percent Auto 56.3 % (45.5-73.1); Platelet Count Result 226 k/mm3 (150-375); Red Blood Count 4.48 M/mm3 (4.2-5.4); Red Cell Distribution Width 13.2 % (11.5-14.5); White Blood Count 6.5 K/mm3 (4.5-10.0)
--- NOTE | 2021-02-19 15:16 | PC.NURSE ---
Called lab and talked to Moris to add on Troponin. He said he would tell Luz.
[2021-02-19 15:17] LABS: INR 0.9; Prothrombin Time 12.4 Seconds (11.1-14.7)
[2021-02-19 15:18] LABS: Partial Thromboplastin Time 27.9 SECONDS (22.3-36.8)
[2021-02-19 15:38] LABS: NT Pro B Type Natriuretic Pept 48 pg/mL (5-100); Troponin I < 0.012 ng/mL (0.000-0.034)
--- NOTE | 2021-02-19 15:40 | ED.GENADULT ---
HPI - General Adult General Chief complaint: Altered Mental Status Stated complaint: AMS Time Seen by Provider: 02/19/21 14:03 Source: RN notes reviewed History of Present Illness HPI narrative: Patient presents to emergency department from home for altered mental status. Patient recently had a left lower extremity amputation and that is being in an ECF she was recently discharged and now at home with home health home health came to the patient's house today and had difficulty waking the patient up to see the patient is normally ANO x4 patient currently being ANO x2. The patient currently denies any complaints she states she is chronically on 4 L nasal cannula for COPD she denies any fevers or chills chest pain shortness of breath abdominal pain nausea or vomiting or any other symptoms of note the patient does have oxycodone baclofen and zolpidem all at home. Patient was by herself at home states her daughter lives in [place] last seen by home health yesterday Related Data Home Medications Medication Instructions Recorded Confirmed Flovent HFA 1 puff INHALATION DAILY 09/09/19 09/09/19 atorvastatin 10 mg PO HS 09/09/19 09/09/19 cholecalciferol (vitamin D3) 400 unit PO DAILY 09/09/19 09/09/19 famciclovir 250 mg PO Q12H 09/09/19 09/09/19 fluticasone propionate 2 spray INTRANASAL DAILY 09/09/19 09/09/19 gabapentin 1,200 mg PO TID 09/09/19 09/09/19 lidocaine 1 patch TOPICAL DAILY 09/09/19 09/09/19 pantoprazole 40 mg PO HS 09/09/19 09/09/19 primidone 50 mg PO BID 09/09/19 09/09/19 senna 8.6 mg PO BID 09/09/19 09/09/19 vitamin E 800 unit PO DAILY 09/09/19 09/09/19 ascorbate calcium (vitamin C) 500 mg PO BID 05/31/20 bisacodyl 10 mg PO ONCE 05/31/20 cholecalciferol (vitamin D3) 1,250 mcg PO WEEKLY 05/31/20 clindamycin HCl 300 mg PO Q6H 05/31/20 docusate sodium 100 mg PO DAILY PRN 05/31/20 ferrous sulfate 325 mg PO BID 05/31/20 furosemide 20 mg PO BID 05/31/20 melatonin 5 mg PO HS 05/31/20 ondansetron 4 mg PO Q8H 05/31/20 oxycodone-acetaminophen 05/31/20 sodium chloride [[place] Nasal] 2 spray INTRANASAL QID PRN 05/31/20 spironolactone 05/31/20 Allergies Allergy/AdvReac Type Severity Reaction Status Date / Time Fish Containing Products Allergy Severe Dyspnea / Verified 02/19/21 14:02 SOB iodine Allergy Unknown Unknown Verified 02/19/21 14:02 Barbiturates Allergy Unknown Verified 02/19/21 14:02 diazepam [From Valium] Allergy Unknown Verified 02/19/21 14:02 latex Allergy Unknown Verified 02/19/21 14:02 Sulfa (Sulfonamide Allergy Unknown Verified 02/19/21 14:02 Antibiotics) sodium penathol Allergy Unknown Uncoded 05/31/20 12:52 Contrast Media AdvReac Intermediate Hives / Uncoded 05/31/20 12:52 Red [place] Review of Systems Review of Systems: Gen.: Denies fevers or chills ENT: Denies congestion Respiratory: Denies shortness of breath or cough CV: Denies chest pain or palpitations GI: Denies abdominal pain nausea, emesis or diarrhea Musculoskeletal: Denies back pain or muscle pain Neuro: Altered mental status Skin: Denies rash Except as documented, all other systems reviewed and negative [facility] Past Medical History Medical History (Updated 02/19/21 @ 18:07 by Feng Gnadhi DO) Anemia Ankle fracture, right ORIF of the right ankle Anxiety Asthma Chronic hyponatremia Depression Diverticulitis Epilepsy patient stated she did have a seizure for 10 years and was removed from her medicine. Gastroparesis GERD (gastroesophageal reflux disease) History of bipolar disorder History of home oxygen therapy 2L HLD (hyperlipidemia) HTN (hypertension) Left tibial fracture Meningoencephalitis Viral SANTI (obstructive sleep apnea) intolerant of his CPAP but she Seasonal allergies Shingles UTI (urinary tract infection) Surgical History Surgical History H/O: hysterectomy History of appendectomy History of knee replacement Left knee 3 times. H
[2021-02-19] MEDS: SODIUM CHLORIDE 0.9% IV 1,000 ML 999 ML IV CONT (16:26)
[2021-02-19 16:57] LABS: Alveolar/Arterial O2 Gradient 11.4 mmHg; Device ROOM AIR; Fractional Inspired Oxygen 21 %; HCO3 ABG 27.1 mEq/l (22.0-26.0); Modified Allen's Test Pass; Oxygen Content ABG 15.5 %vol (16.0-22.0); Oxygen Saturation ABG 92.8 % (95.0-100.0); Oxyhemoglobin 91.3 % THb (90.0-100.0); PCO2 ABG 55.4 mmHg (35.0-45.0); PO2 FiO2 Ratio Arterial Blood 3.43 %; Site Drawn RIGHT RADIAL; pH ABG 7.307 (7.350-7.450)
[2021-02-19 17:13] LABS: Lactic Acid Reflex 0.6 mmol/L (0.7-2.1)
[2021-02-19] MEDS: SODIUM CHLORIDE 0.9% IV 1,000 ML 100 ML IV CONT (22:24)
--- NOTE | 2021-02-19 22:32 | ADMGEN ---
02/19/21 at 1945--This patient, Celestina Ewing, was admitted to 2 Medical Room 256-01. Patient/family oriented to hospital policies and general routines including ID bracelet, bed and alarms, visiting hours, pain management, procedures, bathroom and other care routines, personal items, smoking at 1 policy, room service/diet, and visiting hours. Information on how to activate the Rapid Response Team has been discussed. Patient/Family are encouraged to report perceived risks to care and to ask questions if they do not understand what they are told or what they should do. TDialRNC
--- NOTE | 2021-02-19 22:58 | PC.NURSE ---
Report received from DARCI Watkins.
--- NOTE | 2021-02-19 23:23 | PC.NURSE ---
02/19/21 at 2315 transfered patient per bed to IMU [id number], report given to Isis, plan of care reviewed with the patient. Magnus BEJARANOC
--- NOTE | 2021-02-19 23:57 | PM.IMHP ---
H&P: HPI History of Present Illness Date/Time: 02/19/21 23:57 Chief Complaint: altered mental status Narrative: This is a 70-year-old female WITH PAST MEDICAL HISTORY SIGNIFICANT FOR CHRONIC HYPOXIC AND HYPERCARBIC RESPIRATORY FAILURE PATIENT IS USUALLY ON 4 L BY NASAL CANNULA AT HOME OXYGEN, HYPERTENSION, SHE IS STATUS POST LEFT BKA WHICH IS WELL-HEALED PATIENT HAD BEEN DISCHARGED TO [facility] AND FROM [facility] WENT TO HER HOUSE WITH HOME HEALTH SHE HAS HAD A VISITING NURSE THAT CAME TO VISIT TODAY AND FOUND HER VERY HARD TO AROSE SHE WAS BROUGHT TO THE EMERGENCY ROOM. PATIENT IS NOT ABLE TO GIVE MUCH HISTORY BUT SHE IS ABLE TO STATE THAT SHE WAS AT HER HOUSE WHEN THEY WERE IN VISITING NURSE COULD NOT WAKE HER UP AND THAT SHE JUST HAD LEFT REHABILITATION. AT THE TIME OF MY VISIT SHE DENIED ANY DISCOMFORT. PRELIMINARY WORKUP WAS SIGNIFICANT FOR CHEST X-RAY WITH OPACITIES, AN ABG SHOWED A PH OF 7.307 A PCO2 55.4 A PO2 72. A BMP WAS SIGNIFICANT FOR CREATININE OF 3.3 AND A BUN OF 49. Review of Systems Review of Systems: ROS unobtainable: Yes unobtainable due to mental status PMFSH Past Medical History Medical History (Updated 02/19/21 @ 18:07 by Feng Gandhi DO) Anemia Ankle fracture, right ORIF of the right ankle Anxiety Asthma Chronic hyponatremia Depression Diverticulitis Epilepsy patient stated she did have a seizure for 10 years and was removed from her medicine. Gastroparesis GERD (gastroesophageal reflux disease) History of bipolar disorder History of home oxygen therapy 2L HLD (hyperlipidemia) HTN (hypertension) Left tibial fracture Meningoencephalitis Viral SANTI (obstructive sleep apnea) intolerant of his CPAP but she Seasonal allergies Shingles UTI (urinary tract infection) Surgical History Surgical History H/O: hysterectomy History of appendectomy History of knee replacement Left knee 3 times. History of tonsillectomy S/P ORIF (open reduction internal fixation) fracture left tibia and right ankle Family History Family History Mother Suicide Depression Heart disease Hypertension Heart failure Sibling Suicide Father Diabetes mellitus Emphysema lung Social History Social History Social History: patient tells me that she had 1 biological daughter and that she from cystic fibrosis at the age of 24. The patient tells me she wishes to be a full code. She states that 1 of her stepdaughter's is a power ip attorney for her. She has 6 stepchildren. She said she is single. Smoking status: Never smoker Alcohol intake: never Substance use: never Gender identity (if verbalized by the patient): Female Sexual Orientation (if Verbalized by the Patient): Straight or Heterosexual Spiritual care concerns: No Agree to blood products: No Meds Home Medications and Allergies Home Medications Medication Instructions Recorded Confirmed Type Flovent HFA 1 puff INHALATION DAILY 09/09/19 02/19/21 History atorvastatin 10 mg PO HS 09/09/19 02/19/21 History cholecalciferol (vitamin D3) 400 unit PO DAILY 09/09/19 02/19/21 History famciclovir 250 mg PO Q12H 09/09/19 02/19/21 History fluticasone propionate 2 spray INTRANASAL DAILY 09/09/19 09/09/19 History gabapentin 1,200 mg PO TID 09/09/19 09/09/19 History lidocaine 1 patch TOPICAL DAILY 09/09/19 09/09/19 History pantoprazole 40 mg PO HS 09/09/19 02/19/21 History primidone 100 mg PO BID 09/09/19 02/19/21 History senna 8.6 mg PO BID 09/09/19 09/09/19 History vitamin E 800 unit PO DAILY 09/09/19 09/09/19 History amlodipine [Norvasc] 5 mg PO QAM #30 tablet 09/20/19 02/19/21 Rx guaifenesin [Mucus Relief ER] 1,200 mg PO Q12HR 30 Days #120 09/20/19 Rx tablet ipratropium bromide 0.5 mg INHALATION Q6HRT 30 Days 09/20/19 02/19/21 Rx #300 ml loratadine 10 mg
[2021-02-20] VITALS (31 sets, daily range): BP systolic 88–154; BP diastolic 51–74; PULSE 72–94; RESP 14–20; TEMP 34.1–36.6; O2SAT 92–100
[2021-02-20] MEDS: IPRATROPIUM BR 0.02% INH SOLN 0.5 MG/2.5 ML VIAL INHALATION ×4 (01:39→20:07)
[2021-02-20 05:45] LABS: Basophils Percent Auto 0.4 % (0.2-1.2); Eosinophils Absolute Auto 0.2 K/mm3 (0-0.3); Eosinophils Percent Auto 3.3 % (0-4.4); Hematocrit 36.9 % (37.0-47.0); Hemoglobin 12.1 g/dL (12.0-15.0); Immature Granulocyte Absolute 0.03 K/mm3 (0.00-0.031); Immature Granulocyte Percent A 0.6 % (0-0.5); Lymphocytes Absolute Auto 1.52 K/mm3 (0.9-3.2); Lymphocytes Percent Auto 28.1 % (18.3-44.2); Mean Corpuscular HGB Conc 32.8 g/dl (32-36); Mean Corpuscular Hemoglobin 30.1 pg (26-34); Mean Corpuscular Volume 91.8 fl (80-100); Monocytes Absolute Auto 0.7 K/mm3 (0.1-0.6); Monocytes Percent Auto 13.7 % (2.6-8.5); Neutrophils Absolute Auto 2.9 K/mm3 (1.3-6.7); Neutrophils Percent Auto 53.9 % (45.5-73.1); Platelet Count Result 157 k/mm3 (150-375); Red Blood Count 4.02 M/mm3 (4.2-5.4); White Blood Count 5.4 K/mm3 (4.5-10.0)
[2021-02-20 05:56] LABS: Alanine Aminotransferase 39 U/L (4-35); Albumin Level 3.7 g/dL (3.5-5.1); Alkaline Phosphatase 102 U/L (38-126); Anion Gap 8 mmol/L (8-16); Aspartate Amino Transferase 30 U/L (14-36); Bilirubin,Total 0.3 mg/dL (0.2-1.3); Blood Urea Nitrogen 43 mg/dL (7-17); Calcium 8.2 mg/dL (8.4-10.2); Carbon Dioxide 29 mmol/L (22-30); Chloride 100 mmol/L (98-107); Estimated CRCL calculation 25 ml/min; Estimated Glomerular Filt Rate 23; Glucose 84 mg/dL (65-110); Potassium 3.8 mmol/L (3.4-5.0); Sodium 137 mmol/L (137-145)
[2021-02-20] MEDS: BACLOFEN 10 MG TABLET PO ×2 (08:49→18:44)
[2021-02-20] MEDS: SODIUM CHLORIDE 0.9% IV 1,000 ML 100 ML IV CONT (08:49)
[2021-02-20] MEDS: PRIMIDONE 50 MG TABLET 100 MG PO ×2 (08:49→18:45)
[2021-02-20] MEDS: PREGABALIN (*CRX) 75 MG CAPSULE 150 MG PO (08:50)
[2021-02-20] MEDS: ONDANSETRON INJ 4 MG/2 ML VIAL IV PUSH (10:39)
[2021-02-20] MEDS: ACETAMINOPHEN 325 MG TABLET 650 MG PO (10:39)
--- NOTE | 2021-02-20 14:57 | PCOTNOTE ---
OT evaluation attempted. Patient refusing therapy services at this time as she is awaiting her pain pills. Will attempt at later time
--- NOTE | 2021-02-20 16:39 | PM.IMPN ---
Progress Note: A&P Assessment and Plan (1) Altered mental status: Code(s): R41.82 - Altered mental status, unspecified Status: Acute Assessment and Plan: (2) Acute and chronic respiratory failure: Qualifiers: Respiratory failure complication: hypoxia Qualified Code(s): J96.21 - Acute and chronic respiratory failure with hypoxia Code(s): J96.20 - Acute and chronic respiratory failure, unspecified whether with hypoxia or hypercapnia Status: Acute Assessment and Plan: (3) Acute renal insufficiency: Code(s): N28.9 - Disorder of kidney and ureter, unspecified Status: Acute Assessment and Plan: (4) HCAP (healthcare-associated pneumonia): Code(s): J18.9 - Pneumonia, unspecified organism Status: Acute Assessment and Plan: Additional Plan This is a 70-year-old female WITH PAST MEDICAL HISTORY SIGNIFICANT FOR CHRONIC HYPOXIC AND HYPERCARBIC RESPIRATORY FAILURE PATIENT IS USUALLY ON 4 L BY NASAL CANNULA AT HOME OXYGEN, HYPERTENSION, SHE IS STATUS POST LEFT BKA WHICH IS WELL-HEALED PATIENT HAD BEEN DISCHARGED TO ALF AND FROM ALF WENT TO HER HOUSE WITH HOME HEALTH SHE HAS HAD A VISITING NURSE THAT CAME TO VISIT TODAY AND FOUND HER VERY HARD TO AROSE SHE WAS BROUGHT TO THE EMERGENCY ROOM. PATIENT IS NOT ABLE TO GIVE MUCH HISTORY On day of admission BUT SHE IS ABLE TO STATE THAT SHE WAS AT HER HOUSE WHEN THEY WERE IN VISITING NURSE COULD NOT WAKE HER UP AND THAT SHE JUST HAD LEFT REHABILITATION. PRELIMINARY WORKUP WAS SIGNIFICANT FOR CHEST X-RAY WITH OPACITIES, AN ABG SHOWED A PH OF 7.307 A PCO2 55.4 A PO2 72. A BMP WAS SIGNIFICANT FOR CREATININE OF 3.3 AND A BUN OF 49. # acute encephalopathy: head CT with chronic age related findings, chronic bilateral cerebellar infarcts . likely from hypercapnia and multiple different medications. Gabapentin on hold will re-initiate over here however in a lower dose. Withhold # Acute on chronic respiratory failure chest x-ray with pneumonia recent history of prolonged hospitalization and senior care stay. BiPAP at bedtime and p.r.n. during daytime # LUAN admission creatinine 3.3 continues to improve down to 2.1 this morning hold spironolactone and losartan gentle IV hydration . Baseline creatinine of 1 # Hcap: Started on vancomycin azithromycin and cefepime # chronic anemia # Anxiety Depression # Asthma # Chronic hyponatremia # hx of Epilepsy # Gastroparesis # GERD (gastroesophageal reflux disease) # History of bipolar disorder # HLD (hyperlipidemia) # HTN (hypertension) # SANTI (obstructive sleep apnea): intolerant of his CPAP # Subjective Date/time seen: 02/20/21 16:39 Interval history: More alert awake and. However not able to tell me what brings her here and have feeling. she complains of having pain all over body which is chronic. She takes oxycodone for pain. no fever chills Review of Systems Review of Systems: - CONSTITUTIONAL: Denies weight loss, fever and chills. - HEENT: Denies changes in vision and hearing - RESPIRATORY: Denies SOB and cough. - CV: Denies palpitations and CP. - GI: Denies abdominal pain, nausea, vomiting and diarrhea. - : Denies dysuria and urinary frequency. - MSK: Denies myalgia and joint pain. - SKIN: Denies rash and pruritus. - NEUROLOGICAL: Denies headache and syncope. - PSYCHIATRIC: Denies recent changes in mood. Denies anxiety and depression. All systems reviewed & are unremarkable except as noted in HPI and below Constitutional: Constitutional: Reports fatigue and Reports weakness Neurologic: Reports weakness Endocrine: Endocrine: Reports fatigue Objective Data Vital Signs Vital Signs: Vital Signs - 24 hr 02/19/21 17:00 02/19/21 18:52 02/19/21 20:15 Temperature 93.0 F L Pulse Rate 79 100 75 Respiratory Rate 13 14 20 Blood Pressure 120/68 110/65 Pulse Oximetry 92 100 100 02/19/21 21:41 02/19/21 22:03
[2021-02-20] MEDS: oxyCODONE/ACETAMINOPHEN (*CRX) 5-325 MG TABLET 1 TABLET PO (18:44)
[2021-02-20] MEDS: FERROUS SULFATE 324 MG TABLET PO (18:44)
[2021-02-20] MEDS: ASCORBIC ACID 500 MG TABLET PO (18:45)
[2021-02-20] MEDS: SODIUM CHLORIDE 0.9% IV 1,000 ML 50 ML IV CONT (18:49)
[2021-02-20] MEDS: PANTOPRAZOLE 40 MG TABLET PO (21:24)
[2021-02-20] MEDS: guaiFENesin 12 HR 600 MG TABCR 1200 MG PO (21:24)
[2021-02-20] MEDS: ATORVASTATIN 10 MG TABLET PO (21:24)
[2021-02-20] MEDS: MELATONIN 5 MG TABLET PO (21:25)
[2021-02-21] VITALS (19 sets, daily range): BP systolic 136–168; BP diastolic 60–77; PULSE 82–99; RESP 16–24; TEMP 36–36.8; O2SAT 96–100
[2021-02-21] MEDS: IPRATROPIUM BR 0.02% INH SOLN 0.5 MG/2.5 ML VIAL INHALATION ×4 (02:22→20:04)
[2021-02-21 07:33] LABS: Basophils Percent Auto 0.6 % (0.2-1.2); Eosinophils Absolute Auto 0.1 K/mm3 (0-0.3); Eosinophils Percent Auto 2.8 % (0-4.4); Hematocrit 37.1 % (37.0-47.0); Hemoglobin 11.7 g/dL (12.0-15.0); Immature Granulocyte Absolute 0.06 K/mm3 (0.00-0.031); Immature Granulocyte Percent A 1.2 % (0-0.5); Lymphocytes Absolute Auto 1.53 K/mm3 (0.9-3.2); Lymphocytes Percent Auto 30.1 % (18.3-44.2); Mean Corpuscular HGB Conc 31.5 g/dl (32-36); Mean Corpuscular Hemoglobin 30.4 pg (26-34); Mean Corpuscular Volume 96.4 fl (80-100); Mean Platelet Volume 10.8 fl (7.4-10.4); Monocytes Absolute Auto 0.6 K/mm3 (0.1-0.6); Monocytes Percent Auto 11.8 % (2.6-8.5); Neutrophils Absolute Auto 2.7 K/mm3 (1.3-6.7); Neutrophils Percent Auto 53.5 % (45.5-73.1); Platelet Count Result 143 k/mm3 (150-375); Red Blood Count 3.85 M/mm3 (4.2-5.4); White Blood Count 5.1 K/mm3 (4.5-10.0)
[2021-02-21 07:49] LABS: Anion Gap 10 mmol/L (8-16); Blood Urea Nitrogen 24 mg/dL (7-17); Calcium 8.6 mg/dL (8.4-10.2); Carbon Dioxide 24 mmol/L (22-30); Chloride 102 mmol/L (98-107); Estimated CRCL calculation 53 ml/min; Estimated Glomerular Filt Rate > 60; Glucose 110 mg/dL (65-110); Potassium 4.6 mmol/L (3.4-5.0); Sodium 136 mmol/L (137-145)
[2021-02-21] MEDS: BACLOFEN 10 MG TABLET PO ×3 (09:25→18:05)
[2021-02-21] MEDS: amLODIPine BESYLATE 5 MG TABLET PO (09:25)
[2021-02-21] MEDS: guaiFENesin 12 HR 600 MG TABCR 1200 MG PO ×2 (09:25→22:39)
[2021-02-21] MEDS: PREGABALIN (*CRX) 75 MG CAPSULE 150 MG PO (09:25)
[2021-02-21] MEDS: ASCORBIC ACID 500 MG TABLET PO ×2 (09:25→18:05)
[2021-02-21] MEDS: FERROUS SULFATE 324 MG TABLET PO ×2 (09:25→18:05)
[2021-02-21] MEDS: oxyCODONE/ACETAMINOPHEN (*CRX) 5-325 MG TABLET 1 TABLET PO ×2 (09:26→22:38)
[2021-02-21] MEDS: PRIMIDONE 50 MG TABLET 100 MG PO ×2 (09:26→18:04)
--- NOTE | 2021-02-21 13:23 | PC.NURSE ---
This patient, Celestina Ewing, was transferred to [[id number]] on 02/21/21 at 1323. Personal belongings sent with patient. Report given to [Chely BEJARANO]. Appropriate documentation sent with patient.
--- NOTE | 2021-02-21 13:53 | PC.NURSE ---
patient transferring to room 314 per bed from IMU
--- NOTE | 2021-02-21 16:19 | PM.IMPN ---
Progress Note: A&P Assessment and Plan (1) Altered mental status: Code(s): R41.82 - Altered mental status, unspecified Status: Acute Assessment and Plan: (2) Acute and chronic respiratory failure: Qualifiers: Respiratory failure complication: hypoxia Qualified Code(s): J96.21 - Acute and chronic respiratory failure with hypoxia Code(s): J96.20 - Acute and chronic respiratory failure, unspecified whether with hypoxia or hypercapnia Status: Acute Assessment and Plan: (3) Acute renal insufficiency: Code(s): N28.9 - Disorder of kidney and ureter, unspecified Status: Acute Assessment and Plan: (4) HCAP (healthcare-associated pneumonia): Code(s): J18.9 - Pneumonia, unspecified organism Status: Acute Assessment and Plan: Additional Plan This is a 70-year-old female WITH PAST MEDICAL HISTORY SIGNIFICANT FOR CHRONIC HYPOXIC AND HYPERCARBIC RESPIRATORY FAILURE PATIENT IS USUALLY ON 4 L BY NASAL CANNULA AT HOME OXYGEN, HYPERTENSION, SHE IS STATUS POST LEFT BKA WHICH IS WELL-HEALED PATIENT HAD BEEN DISCHARGED TO [facility] AND FROM LONG-TERM WENT TO HER HOUSE WITH HOME HEALTH SHE HAS HAD A VISITING NURSE THAT CAME TO VISIT TODAY AND FOUND HER VERY HARD TO AROSE SHE WAS BROUGHT TO THE EMERGENCY ROOM. PATIENT IS NOT ABLE TO GIVE MUCH HISTORY On day of admission BUT SHE IS ABLE TO STATE THAT SHE WAS AT HER HOUSE WHEN THEY WERE IN VISITING NURSE COULD NOT WAKE HER UP AND THAT SHE JUST HAD LEFT REHABILITATION. PRELIMINARY WORKUP WAS SIGNIFICANT FOR CHEST X-RAY WITH OPACITIES, AN ABG SHOWED A PH OF 7.307 A PCO2 55.4 A PO2 72. A BMP WAS SIGNIFICANT FOR CREATININE OF 3.3 AND A BUN OF 49. # acute encephalopathy: head CT with chronic age related findings, chronic bilateral cerebellar infarcts . likely from hypercapnia and multiple different medications. Gabapentin on hold will re-initiate over here however in a lower dose. Withhold # Acute on chronic respiratory failure chest x-ray with pneumonia recent history of prolonged hospitalization and longterm stay. BiPAP at bedtime and p.r.n. during daytime recheck ABG in a.m. # LUAN admission creatinine 3.3 continues to improve down to 2.1 this morning hold spironolactone and losartan gentle IV hydration . Baseline creatinine of 1 LUAN has resolved now. Will stop his IV fluids # Hcap: Started on vancomycin azithromycin and cefepime. Continue for now # chronic anemia # Anxiety Depression # Asthma # Chronic hyponatremia # hx of Epilepsy # Gastroparesis # GERD (gastroesophageal reflux disease) # History of bipolar disorder # HLD (hyperlipidemia) # HTN (hypertension) # SANTI (obstructive sleep apnea): intolerant of his CPAP # DVT prophylaxis LOVENOX Subjective Date/time seen: 02/21/21 16:19 Interval history: Feels okay. No new complaints. She is still confused. Review of Systems Review of Systems: All systems reviewed & are unremarkable except as noted in HPI and below Exam Narrative: GENERAL: The patient is well developed, not in acute distress HEENT: Nonicteric sclerae, PERRLA, EOMI. Oropharynx clear. Moist mucous membranes. Conjunctivae appear well perfused. CHEST: Chest wall is nontender. HEART: Regular rate and rhythm without murmur, rubs, or gallops LUNGS: Clear to auscultation bilaterally. no respiratory distress ABDOMEN: Soft, positive bowel sounds, non-tender, no organomegaly. SKIN: No rash, no excessive bruising, petechiae, or purpura. NEUROLOGIC: Cranial nerves II-XII intact, alert and conversant, no gross motor deficits EXTREMITIES: no edema, cyanosis or clubbing Objective Data Vital Signs Vital Signs: Vital Signs - 24 hr 02/20/21 17:30 02/20/21 20:00 02/20/21 20:05 Temperature 97.8 F Pulse Rate 78 80 83 Respiratory Rate 18 18 Blood Pressure 154/59 H Pulse Oximetry 99 99 02/20/21 20:15 02/21/21 00:00 02/21/21 02:00 Temperature 96.9 F L Pulse Rate 84
[2021-02-21] MEDS: ATORVASTATIN 10 MG TABLET PO (22:38)
[2021-02-21] MEDS: PANTOPRAZOLE 40 MG TABLET PO (22:39)
[2021-02-21] MEDS: MELATONIN 5 MG TABLET PO (22:39)
[2021-02-22] VITALS (13 sets, daily range): BP systolic 154–183; BP diastolic 74–82; PULSE 74–93; RESP 14–20; TEMP 36.3–36.5; O2SAT 92–100
[2021-02-22] MEDS: IPRATROPIUM BR 0.02% INH SOLN 0.5 MG/2.5 ML VIAL INHALATION ×4 (02:16→20:33)
[2021-02-22 05:07] LABS: Alveolar/Arterial O2 Gradient 88.3 mmHg; Base Excess ABG 1.6 mEq/l (+/-2.0); Fractional Inspired Oxygen 36 %; HCO3 ABG 26.2 mEq/l (22.0-26.0); Oxygen Content ABG 17.6 %vol (16.0-22.0); Oxygen Saturation ABG 98.4 % (95.0-100.0); Oxyhemoglobin 96.8 % THb (90.0-100.0); PO2 ABG 120.8 mmHg (80.0-100.0); PO2 FiO2 Ratio Arterial Blood 3.36 %; Total Hemoglobin 12.8 g/dL (12.0-18.0); pH ABG 7.423 (7.350-7.450)
[2021-02-22 05:09] LABS: Device NASAL CANNULA; Modified Allen's Test Pass; Site Drawn RIGHT RADIAL
[2021-02-22 06:00] LABS: Basophils Percent Auto 0.3 % (0.2-1.2); Eosinophils Absolute Auto 0.1 K/mm3 (0-0.3); Eosinophils Percent Auto 2.3 % (0-4.4); Hemoglobin 11.9 g/dL (12.0-15.0); Immature Granulocyte Absolute 0.08 K/mm3 (0.00-0.031); Immature Granulocyte Percent A 1.3 % (0-0.5); Lymphocytes Percent Auto 29.4 % (18.3-44.2); Mean Corpuscular Hemoglobin 30.4 pg (26-34); Mean Corpuscular Volume 89.3 fl (80-100); Mean Platelet Volume 10.7 fl (7.4-10.4); Monocytes Absolute Auto 0.7 K/mm3 (0.1-0.6); Monocytes Percent Auto 11.9 % (2.6-8.5); Neutrophils Absolute Auto 3.4 K/mm3 (1.3-6.7); Neutrophils Percent Auto 54.8 % (45.5-73.1); Platelet Count Result 162 k/mm3 (150-375); Red Blood Count 3.92 M/mm3 (4.2-5.4); Red Cell Distribution Width 12.6 % (11.5-14.5); White Blood Count 6.1 K/mm3 (4.5-10.0)
[2021-02-22 06:15] LABS: Anion Gap 9 mmol/L (8-16); Blood Urea Nitrogen 17 mg/dL (7-17); Calcium 8.9 mg/dL (8.4-10.2); Carbon Dioxide 24 mmol/L (22-30); Chloride 101 mmol/L (98-107); Estimated CRCL calculation 67 ml/min; Estimated Glomerular Filt Rate > 60; Glucose 101 mg/dL (65-110); Potassium 4.6 mmol/L (3.4-5.0); Sodium 134 mmol/L (137-145)
[2021-02-22] MEDS: PANTOPRAZOLE 40 MG TABLET PO (08:04)
[2021-02-22] MEDS: BACLOFEN 10 MG TABLET PO ×3 (08:04→17:17)
[2021-02-22] MEDS: guaiFENesin 12 HR 600 MG TABCR 1200 MG PO ×2 (08:04→20:57)
[2021-02-22] MEDS: ASCORBIC ACID 500 MG TABLET PO ×2 (08:05→17:12)
[2021-02-22] MEDS: FERROUS SULFATE 324 MG TABLET PO ×2 (08:05→17:12)
[2021-02-22] MEDS: amLODIPine BESYLATE 5 MG TABLET PO (08:05)
[2021-02-22] MEDS: ENOXAPARIN 40 MG/0.4 ML SYRINGE SUB-Q (08:05)
[2021-02-22] MEDS: PRIMIDONE 50 MG TABLET 100 MG PO ×2 (08:05→17:12)
[2021-02-22] MEDS: oxyCODONE/ACETAMINOPHEN (*CRX) 5-325 MG TABLET 1 TABLET PO ×3 (08:09→20:57)
[2021-02-22] MEDS: PREGABALIN (*CRX) 75 MG CAPSULE 150 MG PO (08:09)
--- NOTE | 2021-02-22 13:43 | PM.IMPN ---
Progress Note: A&P Assessment and Plan (1) Altered mental status: Code(s): R41.82 - Altered mental status, unspecified Status: Acute Assessment and Plan: (2) Acute and chronic respiratory failure: Qualifiers: Respiratory failure complication: hypoxia Qualified Code(s): J96.21 - Acute and chronic respiratory failure with hypoxia Code(s): J96.20 - Acute and chronic respiratory failure, unspecified whether with hypoxia or hypercapnia Status: Acute Assessment and Plan: (3) Acute renal insufficiency: Code(s): N28.9 - Disorder of kidney and ureter, unspecified Status: Acute Assessment and Plan: (4) HCAP (healthcare-associated pneumonia): Code(s): J18.9 - Pneumonia, unspecified organism Status: Acute Assessment and Plan: Additional Plan This is a 70-year-old female WITH PAST MEDICAL HISTORY SIGNIFICANT FOR CHRONIC HYPOXIC AND HYPERCARBIC RESPIRATORY FAILURE PATIENT IS USUALLY ON 4 L BY NASAL CANNULA AT HOME OXYGEN, HYPERTENSION, SHE IS STATUS POST LEFT BKA WHICH IS WELL-HEALED PATIENT HAD BEEN DISCHARGED TO [facility] AND FROM [facility] WENT TO HER HOUSE WITH HOME HEALTH SHE HAS HAD A VISITING NURSE THAT CAME TO VISIT TODAY AND FOUND HER VERY HARD TO AROSE SHE WAS BROUGHT TO THE EMERGENCY ROOM. PATIENT IS NOT ABLE TO GIVE MUCH HISTORY On day of admission BUT SHE IS ABLE TO STATE THAT SHE WAS AT HER HOUSE WHEN THEY WERE IN VISITING NURSE COULD NOT WAKE HER UP AND THAT SHE JUST HAD LEFT REHABILITATION. PRELIMINARY WORKUP WAS SIGNIFICANT FOR CHEST X-RAY WITH OPACITIES, AN ABG SHOWED A PH OF 7.307 A PCO2 55.4 A PO2 72. A BMP WAS SIGNIFICANT FOR CREATININE OF 3.3 AND A BUN OF 49. # acute encephalopathy: head CT with chronic age related findings, chronic bilateral cerebellar infarcts . likely from hypercapnia and multiple different medications. Gabapentin on hold will re-initiate over here however in a lower dose. Withhold slowly improving # Acute on chronic respiratory failure chest x-ray with pneumonia recent history of prolonged hospitalization and [facility] stay. BiPAP at bedtime and p.r.n. during daytime. Refusing BiPAP. Recheck ABG 02/22 within normal limit # LUAN admission creatinine 3.3 continues to improve down to 2.1 this morning hold spironolactone and losartan gentle IV hydration . Baseline creatinine of 1 LUAN has resolved now. Will stop his IV fluids. remains normal off IV fluids # Hcap: Started on vancomycin azithromycin and cefepime. Continue for now. Cultures been negative will stop vancomycin and cefepime. Continue azithromycin for now date 4 # chronic anemia # Anxiety Depression # Asthma # Chronic hyponatremia # hx of Epilepsy # Gastroparesis # GERD (gastroesophageal reflux disease) # History of bipolar disorder # HLD (hyperlipidemia) # HTN (hypertension) # SANTI (obstructive sleep apnea): intolerant of his CPAP # DVT prophylaxis LOVENOX Disposition SNF referral made lives at home uses 4 L oxygen at home uses wheelchair discharge from SNF past Wednesday needs to go back to SNF Subjective Date/time seen: 02/22/21 13:43 Interval history: remains pleasantly confused. Denies any shortness of breath mild cough on and off. No new complaints eating okay she reports left foot phantom pain Review of Systems Review of Systems: All systems reviewed & are unremarkable except as noted in HPI and below Exam Narrative: GENERAL: The patient is well developed, not in acute distress HEENT: Nonicteric sclerae, PERRLA, EOMI. Oropharynx clear. Moist mucous membranes. Conjunctivae appear well perfused. CHEST: Chest wall is nontender. HEART: Regular rate and rhythm without murmur, rubs, or gallops LUNGS: Clear to auscultation bilaterally. no respiratory distress ABDOMEN: Soft, positive bowel sounds, non-tender, no organomegaly. SKIN: No rash, no excessive bruising, petechiae, or purpura. NEUROLOGIC: Cranial nerves II-XII intact,
[2021-02-22] MEDS: MELATONIN 5 MG TABLET PO (20:57)
[2021-02-22] MEDS: ATORVASTATIN 10 MG TABLET PO (20:57)
[2021-02-23] VITALS (11 sets, daily range): BP systolic 153–183; BP diastolic 68–78; PULSE 70–100; RESP 16–20; TEMP 35.9–36.8; O2SAT 94–100
--- NOTE | 2021-02-23 05:42 | PCRCNOTE ---
Window of time for administration has passed. See next scheduled administration.
[2021-02-23] MEDS: PREGABALIN (*CRX) 75 MG CAPSULE 150 MG PO (08:03)
[2021-02-23] MEDS: ASCORBIC ACID 500 MG TABLET PO ×2 (08:04→17:26)
[2021-02-23] MEDS: SALINE 0.65% NAS SOLN 44 ML BTL 2 SPRAY NASAL (08:04)
[2021-02-23] MEDS: guaiFENesin 12 HR 600 MG TABCR 1200 MG PO ×2 (08:04→21:47)
[2021-02-23] MEDS: amLODIPine BESYLATE 5 MG TABLET PO (08:04)
[2021-02-23] MEDS: FERROUS SULFATE 324 MG TABLET PO ×2 (08:04→17:26)
[2021-02-23] MEDS: PRIMIDONE 50 MG TABLET 100 MG PO ×2 (08:04→17:26)
[2021-02-23] MEDS: BACLOFEN 10 MG TABLET PO ×3 (08:09→17:26)
[2021-02-23] MEDS: oxyCODONE/ACETAMINOPHEN (*CRX) 5-325 MG TABLET 1 TABLET PO ×2 (08:09→21:48)
[2021-02-23] MEDS: ENOXAPARIN 40 MG/0.4 ML SYRINGE SUB-Q (08:09)
--- NOTE | 2021-02-23 11:34 | PM.IMPN ---
Progress Note: A&P Assessment and Plan (1) Altered mental status: Code(s): R41.82 - Altered mental status, unspecified Status: Acute Assessment and Plan: will continue with BiPAP. Monitor oxygenation. (2) Acute and chronic respiratory failure: Qualifiers: Respiratory failure complication: hypoxia Qualified Code(s): J96.21 - Acute and chronic respiratory failure with hypoxia Code(s): J96.20 - Acute and chronic respiratory failure, unspecified whether with hypoxia or hypercapnia Status: Acute Assessment and Plan: Continue with BiPAP. Monitor oxygenation. (3) Acute renal insufficiency: Code(s): N28.9 - Disorder of kidney and ureter, unspecified Status: Acute Assessment and Plan: Increase p.o. fluid intake. (4) HCAP (healthcare-associated pneumonia): Code(s): J18.9 - Pneumonia, unspecified organism Status: Acute Assessment and Plan: Repeat chest x-ray is better. Additional Plan This is a 70-year-old female WITH PAST MEDICAL HISTORY SIGNIFICANT FOR CHRONIC HYPOXIC AND HYPERCARBIC RESPIRATORY FAILURE PATIENT IS USUALLY ON 4 L BY NASAL CANNULA AT HOME OXYGEN, HYPERTENSION, SHE IS STATUS POST LEFT BKA WHICH IS WELL-HEALED PATIENT HAD BEEN DISCHARGED TO [facility] AND [facility] WENT TO HER HOUSE WITH HOME HEALTH SHE HAS HAD A VISITING NURSE THAT CAME TO VISIT TODAY AND FOUND HER VERY HARD TO AROSE SHE WAS BROUGHT TO THE EMERGENCY ROOM. PATIENT IS NOT ABLE TO GIVE MUCH HISTORY On day of admission BUT SHE IS ABLE TO STATE THAT SHE WAS AT HER HOUSE WHEN THEY WERE IN VISITING NURSE COULD NOT WAKE HER UP AND THAT SHE JUST HAD LEFT REHABILITATION. PRELIMINARY WORKUP WAS SIGNIFICANT FOR CHEST X-RAY WITH OPACITIES, AN ABG SHOWED A PH OF 7.307 A PCO2 55.4 A PO2 72. A BMP WAS SIGNIFICANT FOR CREATININE OF 3.3 AND A BUN OF 49. # acute encephalopathy: head CT with chronic age related findings, chronic bilateral cerebellar infarcts . likely from hypercapnia and multiple different medications. Gabapentin on hold will re-initiate over here however in a lower dose. Withhold slowly improving # Acute on chronic respiratory failure chest x-ray with pneumonia recent history of prolonged hospitalization and long term stay. BiPAP at bedtime and p.r.n. during daytime. Refusing BiPAP. Recheck ABG 02/22 within normal limit # LUAN admission creatinine 3.3 continues to improve down to 2.1 this morning hold spironolactone and losartan gentle IV hydration . Baseline creatinine of 1 LUAN has resolved now. Will stop his IV fluids. remains normal off IV fluids # Hcap: Started on vancomycin azithromycin and cefepime. Continue for now. Cultures been negative will stop vancomycin and cefepime. Continue azithromycin for now date 4 # chronic anemia # Anxiety Depression # Asthma # Chronic hyponatremia # hx of Epilepsy # Gastroparesis # GERD (gastroesophageal reflux disease) # History of bipolar disorder # HLD (hyperlipidemia) # HTN (hypertension) # SANTI (obstructive sleep apnea): intolerant of his CPAP # DVT prophylaxis LOVENOX Disposition SNF referral made lives at home uses 4 L oxygen at home uses wheelchair discharge from SNF past Wednesday needs to go back to SNF 02/23/2021 will continue current plan of care and treatment. Will start physical therapy. Possible discharge in the morning. Subjective Date/time seen: 02/23/21 11:34 Patient was seen during the morning rounds today. Slightly more alert. Mild shortness of breath no chest pain. No abdominal pain, nausea, no vomiting. Mood stable. Interval history: Review of Systems Review of Systems: All systems reviewed & are unremarkable except as noted in HPI and below ROS unobtainable: Yes unobtainable due to mental status Constitutional: Constitutional: Reports fatigue and Reports weakness Neurologic: Reports weakness Endocrine: Endocrine: Reports fatigue Exam Narrative: GENERAL: The
[2021-02-23] MEDS: ONDANSETRON INJ 4 MG/2 ML VIAL IV PUSH ×2 (13:44→23:21)
[2021-02-23] MEDS: IPRATROPIUM BR 0.02% INH SOLN 0.5 MG/2.5 ML VIAL INHALATION ×2 (13:57→20:20)
--- NOTE | 2021-02-23 13:58 | PCRCNOTE ---
Window of time for administration has passed. See next scheduled administration.
[2021-02-23] MEDS: PANTOPRAZOLE 40 MG TABLET PO (21:48)
[2021-02-23] MEDS: ATORVASTATIN 10 MG TABLET PO (21:48)
[2021-02-23] MEDS: MELATONIN 5 MG TABLET PO (21:48)
[2021-02-24] VITALS (13 sets, daily range): BP systolic 161–165; BP diastolic 70–80; PULSE 72–110; RESP 16–20; TEMP 36.1–37; O2SAT 96–100
[2021-02-24] MEDS: IPRATROPIUM BR 0.02% INH SOLN 0.5 MG/2.5 ML VIAL INHALATION ×4 (03:11→20:04)
--- NOTE | 2021-02-24 08:34 | PM.IMPN ---
Progress Note: A&P Assessment and Plan (1) Altered mental status: Code(s): R41.82 - Altered mental status, unspecified Status: Acute Assessment and Plan: will continue with BiPAP. Monitor oxygenation. (2) Acute and chronic respiratory failure: Qualifiers: Respiratory failure complication: hypoxia Qualified Code(s): J96.21 - Acute and chronic respiratory failure with hypoxia Code(s): J96.20 - Acute and chronic respiratory failure, unspecified whether with hypoxia or hypercapnia Status: Acute Assessment and Plan: Continue with BiPAP. Monitor oxygenation. (3) Acute renal insufficiency: Code(s): N28.9 - Disorder of kidney and ureter, unspecified Status: Acute Assessment and Plan: Increase p.o. fluid intake. (4) HCAP (healthcare-associated pneumonia): Code(s): J18.9 - Pneumonia, unspecified organism Status: Acute Assessment and Plan: Repeat chest x-ray is better. Additional Plan This is a 70-year-old female WITH PAST MEDICAL HISTORY SIGNIFICANT FOR CHRONIC HYPOXIC AND HYPERCARBIC RESPIRATORY FAILURE PATIENT IS USUALLY ON 4 L BY NASAL CANNULA AT HOME OXYGEN, HYPERTENSION, SHE IS STATUS POST LEFT BKA WHICH IS WELL-HEALED PATIENT HAD BEEN DISCHARGED TO [facility] AND FROM [facility]ARE WENT TO HER HOUSE WITH HOME HEALTH SHE HAS HAD A VISITING NURSE THAT CAME TO VISIT TODAY AND FOUND HER VERY HARD TO AROSE SHE WAS BROUGHT TO THE EMERGENCY ROOM. PATIENT IS NOT ABLE TO GIVE MUCH HISTORY On day of admission BUT SHE IS ABLE TO STATE THAT SHE WAS AT HER HOUSE WHEN THEY WERE IN VISITING NURSE COULD NOT WAKE HER UP AND THAT SHE JUST HAD LEFT REHABILITATION. PRELIMINARY WORKUP WAS SIGNIFICANT FOR CHEST X-RAY WITH OPACITIES, AN ABG SHOWED A PH OF 7.307 A PCO2 55.4 A PO2 72. A BMP WAS SIGNIFICANT FOR CREATININE OF 3.3 AND A BUN OF 49. # acute encephalopathy: head CT with chronic age related findings, chronic bilateral cerebellar infarcts . likely from hypercapnia and multiple different medications. Gabapentin on hold will re-initiate over here however in a lower dose. Withhold slowly improving # Acute on chronic respiratory failure chest x-ray with pneumonia recent history of prolonged hospitalization and senior care stay. BiPAP at bedtime and p.r.n. during daytime. Refusing BiPAP. Recheck ABG 02/22 within normal limit # LUAN admission creatinine 3.3 continues to improve down to 2.1 this morning hold spironolactone and losartan gentle IV hydration . Baseline creatinine of 1 LUAN has resolved now. Will stop his IV fluids. remains normal off IV fluids # Hcap: Started on vancomycin azithromycin and cefepime. Continue for now. Cultures been negative will stop vancomycin and cefepime. Continue azithromycin for now date 4 # chronic anemia # Anxiety Depression # Asthma # Chronic hyponatremia # hx of Epilepsy # Gastroparesis # GERD (gastroesophageal reflux disease) # History of bipolar disorder # HLD (hyperlipidemia) # HTN (hypertension) # SANTI (obstructive sleep apnea): intolerant of his CPAP # DVT prophylaxis LOVENOX Disposition SNF referral made lives at home uses 4 L oxygen at home uses wheelchair discharge from SNF past Wednesday needs to go back to SNF 02/23/2021 will continue current plan of care and treatment. Will start physical therapy. Possible discharge in the morning. 02/24/2021 Will continue current plan of care and treatment. Patient more awake and alert. Will start physical therapy and wait for placement. Subjective Date/time seen: 02/24/21 08:34 Patient was seen today during the morning rounds. Patient is more awake and alert. Decreased shortness of breath. No chest pain. No abdominal pain, no nausea, no vomiting. Mood stable. Interval history: Review of Systems Review of Systems: All systems reviewed & are unremarkable except as noted in HPI and below ROS unobtainable: Yes unobtainable due to mental status Constitu
[2021-02-24] MEDS: oxyCODONE/ACETAMINOPHEN (*CRX) 5-325 MG TABLET 1 TABLET PO ×2 (09:17→20:32)
[2021-02-24] MEDS: PREGABALIN (*CRX) 75 MG CAPSULE 150 MG PO (09:17)
[2021-02-24] MEDS: BACLOFEN 10 MG TABLET PO ×3 (09:18→17:54)
[2021-02-24] MEDS: PRIMIDONE 50 MG TABLET 100 MG PO ×2 (09:18→17:53)
[2021-02-24] MEDS: guaiFENesin 12 HR 600 MG TABCR 1200 MG PO ×2 (09:18→20:32)
[2021-02-24] MEDS: ENOXAPARIN 40 MG/0.4 ML SYRINGE SUB-Q (09:18)
[2021-02-24] MEDS: FERROUS SULFATE 324 MG TABLET PO ×2 (09:18→17:54)
[2021-02-24] MEDS: ASCORBIC ACID 500 MG TABLET PO ×2 (09:18→17:54)
[2021-02-24] MEDS: amLODIPine BESYLATE 5 MG TABLET PO (09:18)
[2021-02-24] MEDS: DOCUSATE SODIUM 100 MG CAPSULE PO (09:26)
[2021-02-24] MEDS: polyethylene glycoL 3350 17 GM POWD.PACK PO (09:26)
[2021-02-24] MEDS: ONDANSETRON INJ 4 MG/2 ML VIAL IV PUSH ×2 (12:59→21:57)
[2021-02-24] MEDS: ATORVASTATIN 10 MG TABLET PO (20:32)
[2021-02-24] MEDS: PANTOPRAZOLE 40 MG TABLET PO (20:32)
[2021-02-24] MEDS: MELATONIN 5 MG TABLET PO (20:32)
[2021-02-25] VITALS (14 sets, daily range): BP systolic 155–179; BP diastolic 70–86; PULSE 79–128; RESP 16–108; TEMP 36.4–36.6; O2SAT 95–100
[2021-02-25] MEDS: IPRATROPIUM BR 0.02% INH SOLN 0.5 MG/2.5 ML VIAL INHALATION ×4 (02:19→20:38)
[2021-02-25] MEDS: ACETAMINOPHEN 325 MG TABLET 650 MG PO (03:02)
[2021-02-25] MEDS: oxyCODONE/ACETAMINOPHEN (*CRX) 5-325 MG TABLET 1 TABLET PO ×2 (07:42→20:25)
[2021-02-25] MEDS: ONDANSETRON INJ 4 MG/2 ML VIAL IV PUSH ×2 (07:42→20:26)
[2021-02-25] MEDS: amLODIPine BESYLATE 5 MG TABLET PO (08:47)
[2021-02-25] MEDS: ASCORBIC ACID 500 MG TABLET PO ×2 (08:48→17:27)
[2021-02-25] MEDS: ENOXAPARIN 40 MG/0.4 ML SYRINGE SUB-Q (08:48)
[2021-02-25] MEDS: PREGABALIN (*CRX) 75 MG CAPSULE 150 MG PO (08:48)
[2021-02-25] MEDS: guaiFENesin 12 HR 600 MG TABCR 1200 MG PO ×2 (08:48→20:25)
[2021-02-25] MEDS: FERROUS SULFATE 324 MG TABLET PO ×2 (08:48→17:28)
[2021-02-25] MEDS: PRIMIDONE 50 MG TABLET 100 MG PO ×2 (08:49→17:28)
[2021-02-25] MEDS: BACLOFEN 10 MG TABLET PO ×3 (08:50→17:27)
[2021-02-25] MEDS: FLUTICASONE PROPIONATE 0.05% NA SPR 16 GM BTL (*BKC) 2 SPRAY NASAL (12:16)
[2021-02-25] MEDS: FUROSEMIDE 40 MG TABLET PO ×2 (12:17→17:28)
[2021-02-25] MEDS: LIDOCAINE 5% PATCH 1 PATCH TOPICAL (12:17)
[2021-02-25] MEDS: VITAMIN E 400 UNIT CAPSULE 800 UNIT PO (12:18)
[2021-02-25] MEDS: SENNOSIDES 8.6 MG TABLET PO ×2 (12:18→17:29)
[2021-02-25] MEDS: SPIRONOLACTONE 25 MG TABLET PO (12:18)
[2021-02-25] MEDS: LOSARTAN POTASSIUM 100 MG TABLET PO (12:18)
[2021-02-25] MEDS: LORazepam (*CRX) 0.5 MG TABLET PO ×2 (12:23→20:25)
--- NOTE | 2021-02-25 17:31 | PM.IMPN ---
Progress Note: A&P Assessment and Plan (1) Altered mental status: Code(s): R41.82 - Altered mental status, unspecified Status: Acute Assessment and Plan: will continue with BiPAP. Monitor oxygenation. (2) Acute and chronic respiratory failure: Qualifiers: Respiratory failure complication: hypoxia Qualified Code(s): J96.21 - Acute and chronic respiratory failure with hypoxia Code(s): J96.20 - Acute and chronic respiratory failure, unspecified whether with hypoxia or hypercapnia Status: Acute Assessment and Plan: Continue with BiPAP. Monitor oxygenation. (3) Acute renal insufficiency: Code(s): N28.9 - Disorder of kidney and ureter, unspecified Status: Acute Assessment and Plan: Increase p.o. fluid intake. (4) HCAP (healthcare-associated pneumonia): Code(s): J18.9 - Pneumonia, unspecified organism Status: Acute Assessment and Plan: Repeat chest x-ray is better. Additional Plan This is a 70-year-old female WITH PAST MEDICAL HISTORY SIGNIFICANT FOR CHRONIC HYPOXIC AND HYPERCARBIC RESPIRATORY FAILURE PATIENT IS USUALLY ON 4 L BY NASAL CANNULA AT HOME OXYGEN, HYPERTENSION, SHE IS STATUS POST LEFT BKA WHICH IS WELL-HEALED PATIENT HAD BE[facility] TO [facility] AND [facility] WENT TO HER HOUSE WITH HOME HEALTH SHE HAS HAD A VISITING NURSE THAT CAME TO VISIT TODAY AND FOUND HER VERY HARD TO AROSE SHE WAS BROUGHT TO THE EMERGENCY ROOM. PATIENT IS NOT ABLE TO GIVE MUCH HISTORY On day of admission BUT SHE IS ABLE TO STATE THAT SHE WAS AT HER HOUSE WHEN THEY WERE IN VISITING NURSE COULD NOT WAKE HER UP AND THAT SHE JUST HAD LEFT REHABILITATION. PRELIMINARY WORKUP WAS SIGNIFICANT FOR CHEST X-RAY WITH OPACITIES, AN ABG SHOWED A PH OF 7.307 A PCO2 55.4 A PO2 72. A BMP WAS SIGNIFICANT FOR CREATININE OF 3.3 AND A BUN OF 49. # acute encephalopathy: head CT with chronic age related findings, chronic bilateral cerebellar infarcts . likely from hypercapnia and multiple different medications. Gabapentin on hold will re-initiate over here however in a lower dose. Withhold slowly improving # Acute on chronic respiratory failure chest x-ray with pneumonia recent history of prolonged hospitalization and penitentiary stay. BiPAP at bedtime and p.r.n. during daytime. Refusing BiPAP. Recheck ABG 02/22 within normal limit # LUAN admission creatinine 3.3 continues to improve down to 2.1 this morning hold spironolactone and losartan gentle IV hydration . Baseline creatinine of 1 LUAN has resolved now. Will stop his IV fluids. remains normal off IV fluids # Hcap: Started on vancomycin azithromycin and cefepime. Continue for now. Cultures been negative will stop vancomycin and cefepime. Continue azithromycin for now date 4 # chronic anemia # Anxiety Depression # Asthma # Chronic hyponatremia # hx of Epilepsy # Gastroparesis # GERD (gastroesophageal reflux disease) # History of bipolar disorder # HLD (hyperlipidemia) # HTN (hypertension) # SANTI (obstructive sleep apnea): intolerant of his CPAP # DVT prophylaxis LOVENOX Disposition SNF referral made lives at home uses 4 L oxygen at home uses wheelchair discharge from SNF past Wednesday needs to go back to SNF 02/23/2021 will continue current plan of care and treatment. Will start physical therapy. Possible discharge in the morning. 02/24/2021 Will continue current plan of care and treatment. Patient more awake and alert. Will start physical therapy and wait for placement. 02/25/21 17:31 Patient with acute encephalopathy found to have pneumonia and hypercarbic respiratory failure, patient is clinically has improved repeat x-ray on 02/22 pneumonia had resolved, patient is now on 4 L of oxygen nasal cannula, clinically stable has no complaint of chest pain shortness of breath palpitation fever or chills, patient with a left BKA patient complains of phantom pain and left lower extremity and jerking m
[2021-02-25] MEDS: ATORVASTATIN 10 MG TABLET PO (20:24)
[2021-02-25] MEDS: PANTOPRAZOLE 40 MG TABLET PO (20:25)
[2021-02-25] MEDS: MELATONIN 5 MG TABLET PO (20:25)
[2021-02-26] VITALS (11 sets, daily range): BP systolic 132–160; BP diastolic 66–78; PULSE 101–116; RESP 12–20; TEMP 36.6–36.8; O2SAT 96–100
[2021-02-26] MEDS: IPRATROPIUM BR 0.02% INH SOLN 0.5 MG/2.5 ML VIAL INHALATION ×4 (02:45→21:39)
[2021-02-26] MEDS: ONDANSETRON INJ 4 MG/2 ML VIAL IV PUSH ×3 (03:01→21:20)
[2021-02-26] MEDS: LORazepam (*CRX) 0.5 MG TABLET PO ×3 (03:02→16:22)
[2021-02-26] MEDS: FLUTICASONE PROPIONATE 0.05% NA SPR 16 GM BTL (*BKC) 2 SPRAY NASAL (09:05)
[2021-02-26] MEDS: VITAMIN E 400 UNIT CAPSULE 800 UNIT PO (09:06)
[2021-02-26] MEDS: oxyCODONE/ACETAMINOPHEN (*CRX) 5-325 MG TABLET 1 TABLET PO (09:06)
[2021-02-26] MEDS: SPIRONOLACTONE 25 MG TABLET PO (09:06)
[2021-02-26] MEDS: LIDOCAINE 5% PATCH 1 PATCH TOPICAL (09:06)
[2021-02-26] MEDS: DOCUSATE SODIUM 100 MG CAPSULE PO (09:06)
[2021-02-26] MEDS: ASCORBIC ACID 500 MG TABLET PO ×2 (09:07→16:22)
[2021-02-26] MEDS: BACLOFEN 10 MG TABLET PO ×3 (09:07→16:22)
[2021-02-26] MEDS: PREGABALIN (*CRX) 75 MG CAPSULE 150 MG PO ×2 (09:07→21:20)
[2021-02-26] MEDS: amLODIPine BESYLATE 5 MG TABLET PO (09:07)
[2021-02-26] MEDS: SENNOSIDES 8.6 MG TABLET PO ×2 (09:07→16:22)
[2021-02-26] MEDS: PRIMIDONE 50 MG TABLET 100 MG PO ×2 (09:07→16:22)
[2021-02-26] MEDS: guaiFENesin 12 HR 600 MG TABCR 1200 MG PO ×2 (09:08→21:19)
[2021-02-26] MEDS: FERROUS SULFATE 324 MG TABLET PO ×2 (09:08→16:22)
[2021-02-26] MEDS: ENOXAPARIN 40 MG/0.4 ML SYRINGE SUB-Q (09:08)
[2021-02-26] MEDS: LOSARTAN POTASSIUM 100 MG TABLET PO (09:08)
[2021-02-26] MEDS: valACYclovir HCL 500 MG TABLET PO ×2 (13:26→21:20)
--- NOTE | 2021-02-26 15:58 | PM.IMPN ---
Progress Note: A&P Additional Plan This is a 70-year-old female WITH PAST MEDICAL HISTORY SIGNIFICANT FOR CHRONIC HYPOXIC AND HYPERCARBIC RESPIRATORY FAILURE PATIENT IS USUALLY ON 4 L BY NASAL CANNULA AT HOME OXYGEN, HYPERTENSION, SHE IS STATUS POST LEFT BKA WHICH IS WELL-HEALED PATIENT HAD BEEN DISCHARGED TO [facility] AND FROM [facility] WENT TO HER HOUSE WITH HOME HEALTH SHE HAS HAD A VISITING NURSE THAT CAME TO VISIT TODAY AND FOUND HER VERY HARD TO AROSE SHE WAS BROUGHT TO THE EMERGENCY ROOM. PATIENT IS NOT ABLE TO GIVE MUCH HISTORY On day of admission BUT SHE IS ABLE TO STATE THAT SHE WAS AT HER HOUSE WHEN THEY WERE IN VISITING NURSE COULD NOT WAKE HER UP AND THAT SHE JUST HAD LEFT REHABILITATION. PRELIMINARY WORKUP WAS SIGNIFICANT FOR CHEST X-RAY WITH OPACITIES, AN ABG SHOWED A PH OF 7.307 A PCO2 55.4 A PO2 72. A BMP WAS SIGNIFICANT FOR CREATININE OF 3.3 AND A BUN OF 49. # acute encephalopathy: head CT with chronic age related findings, chronic bilateral cerebellar infarcts . likely from hypercapnia and multiple different medications. Gabapentin on hold will re-initiate over here however in a lower dose. Withhold slowly improving # Acute on chronic respiratory failure chest x-ray with pneumonia recent history of prolonged hospitalization and care home stay. BiPAP at bedtime and p.r.n. during daytime. Refusing BiPAP. Recheck ABG 02/22 within normal limit # LUAN admission creatinine 3.3 continues to improve down to 2.1 this morning hold spironolactone and losartan gentle IV hydration . Baseline creatinine of 1 LUAN has resolved now. Will stop his IV fluids. remains normal off IV fluids # Hcap: Started on vancomycin azithromycin and cefepime. Continue for now. Cultures been negative will stop vancomycin and cefepime. Continue azithromycin for now date 4 # chronic anemia # Anxiety Depression # Asthma # Chronic hyponatremia # hx of Epilepsy # Gastroparesis # GERD (gastroesophageal reflux disease) # History of bipolar disorder # HLD (hyperlipidemia) # HTN (hypertension) # SANTI (obstructive sleep apnea): intolerant of his CPAP # DVT prophylaxis LOVENOX Disposition SNF referral made lives at home uses 4 L oxygen at home uses wheelchair discharge from SNF past Wednesday needs to go back to SNF 02/23/2021 will continue current plan of care and treatment. Will start physical therapy. Possible discharge in the morning. 02/24/2021 Will continue current plan of care and treatment. Patient more awake and alert. Will start physical therapy and wait for placement. 02/26/21 15:58 02/25Patient with acute encephalopathy found to have pneumonia and hypercarbic respiratory failure, patient is clinically has improved repeat x-ray on 02/22 pneumonia had resolved, patient is now on 4 L of oxygen nasal cannula, clinically stable has no complaint of chest pain shortness of breath palpitation fever or chills, patient with a left BKA patient complains of phantom pain and left lower extremity and jerking movement, will continue Lyrica, patient is not participating in physical therapy will encouraged patient, will continue to monitor may possibly discharge patient back to care home tomorrow. 02/26 patient clinically stable may resume patient's home medications, patient on 4 L nasal cannula, patient is encouraged to participate in physical therapy, patient has selected rehab center awaiting insurance authorization possibly tomorrow will discharge the patient. Subjective Date/time seen: 02/26/21 15:58 02/25Patient with acute encephalopathy found to have pneumonia and hypercarbic respiratory failure, patient is clinically has improved repeat x-ray on 02/22 pneumonia had resolved, patient is now on 4 L of oxygen nasal cannula, clinically stable has no complaint of chest pain shortness of breath palpitation fever or chills, patient with a left BKA patient complains of phantom pain and left lower extremity and jerking movement, will continue Dyanaacayetano
[2021-02-26] MEDS: MELATONIN 5 MG TABLET PO (21:20)
[2021-02-26] MEDS: ATORVASTATIN 10 MG TABLET PO (21:20)
[2021-02-26] MEDS: PANTOPRAZOLE 40 MG TABLET PO (21:20)
[2021-02-27] VITALS (10 sets, daily range): BP systolic 108–137; BP diastolic 46–55; PULSE 83–104; RESP 16–20; TEMP 36.2–37.6; O2SAT 98–99
[2021-02-27] MEDS: LORazepam (*CRX) 0.5 MG TABLET PO ×2 (02:37→13:06)
[2021-02-27] MEDS: ACETAMINOPHEN 325 MG TABLET 650 MG PO (02:37)
[2021-02-27] MEDS: IPRATROPIUM BR 0.02% INH SOLN 0.5 MG/2.5 ML VIAL INHALATION ×3 (02:50→14:51)
[2021-02-27] MEDS: oxyCODONE/ACETAMINOPHEN (*CRX) 5-325 MG TABLET 1 TABLET PO (09:30)
[2021-02-27] MEDS: PRIMIDONE 50 MG TABLET 100 MG PO ×2 (09:31→18:00)
[2021-02-27] MEDS: BACLOFEN 10 MG TABLET PO ×3 (09:31→18:00)
[2021-02-27] MEDS: FUROSEMIDE 40 MG TABLET PO ×2 (09:31→18:01)
[2021-02-27] MEDS: guaiFENesin 12 HR 600 MG TABCR 1200 MG PO (09:31)
[2021-02-27] MEDS: ONDANSETRON INJ 4 MG/2 ML VIAL IV PUSH (09:31)
[2021-02-27] MEDS: ASCORBIC ACID 500 MG TABLET PO ×2 (09:31→18:01)
[2021-02-27] MEDS: FERROUS SULFATE 324 MG TABLET PO ×2 (09:31→18:00)
[2021-02-27] MEDS: SPIRONOLACTONE 25 MG TABLET PO (09:32)
[2021-02-27] MEDS: VITAMIN E 400 UNIT CAPSULE 800 UNIT PO (09:32)
[2021-02-27] MEDS: amLODIPine BESYLATE 5 MG TABLET PO (09:32)
[2021-02-27] MEDS: LOSARTAN POTASSIUM 100 MG TABLET PO (09:32)
[2021-02-27] MEDS: SENNOSIDES 8.6 MG TABLET PO ×2 (09:32→18:01)
[2021-02-27] MEDS: FLUTICASONE PROPIONATE 0.05% NA SPR 16 GM BTL (*BKC) 2 SPRAY NASAL (09:33)
[2021-02-27] MEDS: ENOXAPARIN 40 MG/0.4 ML SYRINGE SUB-Q (09:33)
[2021-02-27] MEDS: valACYclovir HCL 500 MG TABLET PO (09:33)
[2021-02-27] MEDS: LIDOCAINE 5% PATCH 1 PATCH TOPICAL (09:33)
[2021-02-27] MEDS: PREGABALIN (*CRX) 75 MG CAPSULE 150 MG PO (09:36)
--- NOTE | 2021-02-27 10:17 | PCNWS ---
Weekly nutritional screen. Patient is tolerating current diet with adequate intake. No weight loss reported. No nutritional needs at this time.
--- NOTE | 2021-02-27 10:23 | PCRCNOTE ---
Window of time for administration has passed. See next scheduled administration.
--- NOTE | 2021-02-27 10:24 | PM.DS ---
DS: Admitting Diagnosis Admitting Diagnosis Chief Complaint: altered mental status DS: Discharge Diagnosis Discharge Diagnosis (1) Altered mental status: Code(s): R41.82 - Altered mental status, unspecified Status: Acute Assessment and Plan: PATIENT HAS BEEN ADMITTED TO IMU SHE HAD 1 EPISODE OF HYPOTHERMIA PATIENT IS ON NUMEROUS DRUGS THAT COULD HAVE POTENTIALLY CONTRIBUTED TO HER ALTERED MENTAL STATUS DECREASED PREGABALIN TO HALF OF THE DOES DAILY WILL BE HOLDING GABAPENTIN HOLDING OPIATES HOLDING BENZODIAZEPINES (2) Acute and chronic respiratory failure: Qualifiers: Respiratory failure complication: hypoxia Qualified Code(s): J96.21 - Acute and chronic respiratory failure with hypoxia Code(s): J96.20 - Acute and chronic respiratory failure, unspecified whether with hypoxia or hypercapnia Status: Acute Assessment and Plan: PATIENT WITH INFILTRATES LIKELY TO BE PNEUMONIA PATIENT WITH PROLONGED HOSPITALIZATION AND SNF STAY ALSO USING DRUGS WITH HIGH SEDATIVE EFFECT THE COULD HAVE CONTRIBUTED TO HER CO2 RETENTION BIPAP AT BEDTIME (3) Acute renal insufficiency: Code(s): N28.9 - Disorder of kidney and ureter, unspecified Status: Acute Assessment and Plan: HOLDING SPIRONOLACTONE HOLDING LOSARTAN GENTLE IV HYDRATION REPEAT BMP IN THE MORNING (4) HCAP (healthcare-associated pneumonia): Code(s): J18.9 - Pneumonia, unspecified organism Status: Acute Assessment and Plan: STARTED ON CEFEPIME PAIN VANCOMYCIN AND ZITHROMAX AWAIT CULTURES DS: Summary Hospital Course Reason for hospitalization: Chief Complaint: altered mental status Narrative: This is a 70-year-old female WITH PAST MEDICAL HISTORY SIGNIFICANT FOR CHRONIC HYPOXIC AND HYPERCARBIC RESPIRATORY FAILURE PATIENT IS USUALLY ON 4 L BY NASAL CANNULA AT HOME OXYGEN, HYPERTENSION, SHE IS STATUS POST LEFT BKA WHICH IS WELL-HEALED PATIENT HAD BEEN DISCHARGED TO SNF AND FROM SNF WENT TO HER HOUSE WITH HOME HEALTH SHE HAS HAD A VISITING NURSE THAT CAME TO VISIT TODAY AND FOUND HER VERY HARD TO AROSE SHE WAS BROUGHT TO THE EMERGENCY ROOM. PATIENT IS NOT ABLE TO GIVE MUCH HISTORY BUT SHE IS ABLE TO STATE THAT SHE WAS AT HER HOUSE WHEN THEY WERE IN VISITING NURSE COULD NOT WAKE HER UP AND THAT SHE JUST HAD LEFT REHABILITATION. AT THE TIME OF MY VISIT SHE DENIED ANY DISCOMFORT. PRELIMINARY WORKUP WAS SIGNIFICANT FOR CHEST X-RAY WITH OPACITIES, AN ABG SHOWED A PH OF 7.307 A PCO2 55.4 A PO2 72. A BMP WAS SIGNIFICANT FOR CREATININE OF 3.3 AND A BUN OF 49. Hospital Course: This is a 70-year-old female WITH PAST MEDICAL HISTORY SIGNIFICANT FOR CHRONIC HYPOXIC AND HYPERCARBIC RESPIRATORY FAILURE PATIENT IS USUALLY ON 4 L BY NASAL CANNULA AT HOME OXYGEN, HYPERTENSION, SHE IS STATUS POST LEFT BKA WHICH IS WELL-HEALED PATIENT HAD BEEN DISCHARGED TO SNF AND FROM SNF WENT TO HER HOUSE WITH HOME HEALTH SHE HAS HAD A VISITING NURSE THAT CAME TO VISIT TODAY AND FOUND HER VERY HARD TO AROSE SHE WAS BROUGHT TO THE EMERGENCY ROOM. PATIENT IS NOT ABLE TO GIVE MUCH HISTORY On day of admission BUT SHE IS ABLE TO STATE THAT SHE WAS AT HER HOUSE WHEN THEY WERE IN VISITING NURSE COULD NOT WAKE HER UP AND THAT SHE JUST HAD LEFT REHABILITATION. PRELIMINARY WORKUP WAS SIGNIFICANT FOR CHEST X-RAY WITH OPACITIES, AN ABG SHOWED A PH OF 7.307 A PCO2 55.4 A PO2 72. A BMP WAS SIGNIFICANT FOR CREATININE OF 3.3 AND A BUN OF 49. # acute encephalopathy: head CT with chronic age related findings, chronic bilateral cerebellar infarcts . likely from hypercapnia and multiple different medications. Gabapentin on hold will re-initiate over here however in a lower dose. Withhold slowly improving # Acute on chronic respiratory failure chest x-ray with pneumonia recent history of prolonged hospitalization and longterm stay. BiPAP at bedtime and p.r.n. during daytime. Refusing BiPAP. Rech
--- NOTE | 2021-02-27 11:04 | P.CDI_ITS ---
CDI Query Clarification Request -Acute encephalopathy likely from hypercapnia and multiple medications has been documented Please further specify type of encephalopathy: * Metabolic * Toxic * Hypoxic * Other * Unable to determine <Hilda Wu RN - Last Filed: 02/27/21 11:05> Clarified Diagnosis (1) Acute encephalopathy: Code(s): G93.40 - Encephalopathy, unspecified <Hilda Wu RN - Last Filed: 02/27/21 11:05> Status: Acute <Hilda Wu RN - Last Filed: 02/27/21 11:05> Assessment and Plan: most likely metabolic due to hypercapnia and multiple medications. <Kuldeep Dee MD - Last Filed: 03/24/21 09:00>
== END 2021-02-27 18:55 | DRG 92 ==
LOC: ANHED 18:07 → ANH2MED 18:50 → ANHIMU 23:50 → ANH3MEDSUR 02-25 11:40 → ANHIMU 03-03 13:01
PROVIDERS: Admitting Provider Hospitalist; Emergency Provider Emergency Medicine; PCP Internal Medicine; Visit Provider Internal Medicine
DX: G92 Toxic encephalopathy; N17.9 Acute kidney failure, unspecified; E87.1 Hypo-osmolality and hyponatremia; J96.12 Chronic respiratory failure with hypercapnia; J96.11 Chronic respiratory failure with hypoxia; G47.33 Obstructive sleep apnea (adult) (pediatric); Y95 Nosocomial condition; Z99.81 Dependence on supplemental oxygen; E78.5 Hyperlipidemia, unspecified; I10 Essential (primary) hypertension; J45.909 Unspecified asthma, uncomplicated; K21.9 Gastro-esophageal reflux disease without esophagitis; K31.84 Gastroparesis; D64.9 Anemia, unspecified; F31.9 Bipolar disorder, unspecified; F41.9 Anxiety disorder, unspecified; Z79.899 Other long term (current) drug therapy; Z86.69 Personal history of other diseases of the nervous system and sense organs; Z89.512 Acquired absence of left leg below knee
CPT/HCPCS: 36415; 36600; 70450; 71045; 80048; 80053; 81001; 82805; 83605; 83880; 84484; 85025; 85610; 85730; 87040; 93005; 94640; 94660; 96361; 96365; 96367; 96375; 97110; 97161; 97166; 97530; 99285; A9270; G0378; J0456; J0692; J1650; J2405; J3370; J7030

== ENCOUNTER 2021-12-02 14:53 | Outpatient (CLI) | payer MEDICARE, MEDICAID, SELFPAY ==
--- NOTE | ~2021-12-02 | US_ITS ---
EXAMINATION: US arterial ankle brachial ind DATE: 12/02/2021 15:51 INDICATION: Decreased pulse Left below-knee amputation of June 2021 Colon right leg, decreased pulses Hypercholesterolemia Trophic changes. TECHNIQUE: Segmental pressures and plethysmographic and Doppler waveforms of the brachial and lower e xtremity arteries were obtained. COMPARISON: None. FINDINGS: Right and left brachial artery pressures of 186 mm Hg and 169 mm Hg, respectively, are concordant (no rmal difference <= 30 mmHg). The right ankle-brachial index (HANG) is 0.95 (normal >= 0.9-1.0). The right great toe-brachial index (TBI) is 0.86 (normal >= 0.65). Arterial Doppler waveforms are biphasic. Status post left below-knee amputation. IMPRESSION: Normal right HANG and TBI Status post left below-knee amputation Reviewed, dictated and finalized at [facility]. Reviewed, dictated and finalized at location B.
== END 2021-12-02 14:54 | disposition home or self-care (01) ==
PROVIDERS: PCP Internal Medicine; Visit Provider Internal Medicine
DX: R09.89 Other specified symptoms and signs involving the circulatory and respiratory systems (principal); Z89.512 Acquired absence of left leg below knee
CPT/HCPCS: 93922

== ENCOUNTER 2022-04-07 13:33 | Outpatient (CLI) | payer MEDICARE, MEDICAID, SELFPAY ==
--- NOTE | ~2022-04-07 | XR_ITS ---
No active cardiac pulmonary disease DATE: 04/07/2022 13:53 INDICATION: Persistent cough, congestion TECHNIQUE: AP and lateral views COMPARISON: 02/22/2021 portable AP chest FINDINGS: Heart size appears within normal range. There is aortic arch calcification, aortic unfoldin g. No hilar or mediastinal enlargement. No pulmonary infiltrate or consolidation, pleural effusion or pulmonary vascular congestion or pneumo thorax. Osteopenia. IMPRESSION: No active cardiopulmonary disease . Reviewed, dictated and finalized at location A.
== END 2022-04-07 13:34 | disposition home or self-care (01) ==
LOC: ANHIMG 13:35
PROVIDERS: PCP Internal Medicine; Visit Provider Internal Medicine
DX: R05.3 Chronic cough (principal)
CPT/HCPCS: 71046

== ENCOUNTER 2024-04-23 11:56 | Inpatient (IN) | payer MEDICARE, MEDICAID, SELFPAY ==
[2024-04-23] VITALS (7 sets, daily range): BP systolic 132–166; BP diastolic 54–79; PULSE 82–114; RESP 15–19; TEMP 36.6–37.2; O2SAT 87–100; BMI 37.8
--- NOTE | ~2024-04-23 | XR_ITS ---
AP view of the pelvis and AP and lateral views of the bilateral hips Clinical history: Pain Findings: No acute fracture or dislocation is seen. Osseous alignment is anatomic. Minimal degenerati ve change of both hip joints noted. Soft tissues are unremarkable. Impression: No acute fracture or dislocation. Minimal degenerative change of both hip joints. Reviewed, dictated and finalized at location . Impression: No acute fracture or dislocation. Minimal degenerative change of both hip joints.
--- NOTE | ~2024-04-23 | CT_ITS ---
CT cervical spine wo con Ordering provider: Shabbir Zayas MD History: . Fall . Comparison: None. Technique: CT of the cervical spine was performed without contrast. Sagittal and coronal reformatted images were also obtained and reviewed. Automated exposure control and iterative reconstruction spencer hnique were employed. The dose-length product was 521.99 mGy-cm. FINDINGS: VERTEBRAE: No subluxation or acute fracture. The occipital condyles are intact. Degenerative changes of the spine. DISC SPACES: Narrowing of the disc C5-C6 and C6-C7. Multilevel uncovertebral joint osteoarthritic yuliet nges. Multilevel facet joint disease. Bilateral narrowing of the foramina at the level of C5-C6. PARASPINOUS SOFT TISSUES: Normal. IMPRESSION: No acute osseous abnormality cervical spine. Reviewed, dictated and finalized at location A.
--- NOTE | ~2024-04-23 | CT_ITS ---
Non-contrast CT scan of the Abdomen and Pelvis Clinical indication: Abdominal pain Technique: 2.5 mm axial scans were obtained through the abdomen and pelvis without intravenous or or al contrast. Dose reduction technique was used on this scan by utilizing automated exposure control a nd iterative reconstruction technique. The dose-length product (DLP) was 1572.54 mGy-cm. Findings: Images through the lung bases reveal no abnormalities. Punctate nonobstructing left renal stones present. No right renal stone. No ureteral stone or hydrone phrosis on either side. The liver, spleen, pancreas, gallbladder, and adrenals appear normal. There are atherosclerotic calci fications of the aorta. There is no evidence of bowel obstruction. There is extensive wall thickening and mild pericolonic in flammatory change involving the descending colon and proximal sigmoid colon. Images through the pelvis were performed. There is no evidence of ascites or lymphadenopathy. Urinary bladder unremarkable. No pelvic mass. Status post hysterectomy. Impression: Infectious/inflammatory colitis of the descending and proximal sigmoid colon. No bowel obstruction, a bscess, or free air. Reviewed, dictated and finalized at [facility]. Impression: Infectious/inflammatory colitis of the descending and proximal sigmoid colon. N o bowel obstruction, abscess, or free air.
--- NOTE | ~2024-04-23 | XR_ITS ---
EXAMINATION: XR chest 1V portable DATE: 04/28/2024 15:50 INDICATION: Shortness of breath. TECHNIQUE: A single frontal view of the chest was obtained. COMPARISON: Chest single view 04/23/2024 FINDINGS: There is no pneumonia, pleural effusion, or pneumothorax. The heart size is normal. IMPRESSION: 1. No acute cardiopulmonary disease. Reviewed, dictated and finalized at location A.
--- NOTE | ~2024-04-23 | CT_ITS ---
CT thoracic lumbar wo con Ordering provider: Shabbir Zayas MD History: . Fall . Comparison: None. Technique: CT thoracic and lumbar spine without contrast. Automated exposure control and iterative r econstruction technique were employed. The dose-length product was 2031.89 mGy-cm. FINDINGS: VERTEBRAE: Normal height and alignment. No subluxation or visible acute fracture. Degenerative spine. DISC SPACES: Multilevel degenerative disc disease in the mid and lower thoracic area.. Narrowing of the disc L2-L3 in the lumbar area.. Bilateral facet joint disease at the level of L3-L4, L4-L5 and L5-S1. Mild disc bulge at the level of L2-L3 with no intervertebral foraminal narrowing. Diffuse disc bulge at the level of L3-L4 with bilateral narrowing of the foramina. Diffuse disc bulge at the level of L4-L5 with bilateral narrowing of the foramina. Diffuse disc bulge at the level of L5-S1 with no significant narrowing of the foramina. PARASPINOUS SOFT TISSUES: Atherosclerotic changes of the aorta. IMPRESSION: No acute osseous abnormality of the thoracic and lumbar spine. Reviewed, dictated and finalized at location A.
--- NOTE | ~2024-04-23 | XR_ITS ---
XR tibia fibula RT 2V Ordering provider: Shabbir Zayas MD History: . Fall, GENERAL PAIN, PAST HX OF ANKLE SURG . Comparison: None. FINDINGS: BONES: No acute fracture or dislocation. Old fracture in the medial and lateral malleolus is noted. P ostoperative changes in the lower tibia. JOINT SPACES: Chondrocalcinosis in the knee joint. SOFT TISSUES: Normal. IMPRESSION: No acute osseous abnormality right leg. Reviewed, dictated and finalized at location A.
--- NOTE | ~2024-04-23 | CT_ITS ---
CT head without contrast Indication: Status post fall COMPARISON: 02/19/2021 Technique: Serial scans were obtained through the brain without the administration of contrast. Dose reduction technique was used on this scan by utilizing automated exposure control and iterative recon struction technique. The dose-length product (DLP) was 1362.00 mGy-cm. Findings: There is no evidence of intracranial hemorrhage, mass lesion, or acute infarct. The ventri cles and subarachnoid spaces are dilated, consistent with moderate to severe atrophy. Low attenuatio n regions are seen within the periventricular white matter bilaterally, likely representing changes f rom chronic microvascular ischemic disease. There is no evidence of edema, mass effect or midline sh ift. The visualized paranasal sinuses and mastoid air cells are clear. Impression: No intracranial hemorrhage, mass, or acute infarct. Atrophy and chronic white matter changes, as above. Reviewed, dictated and finalized at location . Impression: No intracranial hemorrhage, mass, or acute infarct. Atrophy and chronic white matter changes, as above.
--- NOTE | ~2024-04-23 | XR_ITS ---
XR chest 1V portable Ordering provider: Anthony Garcia MD History: 73 years Female with . WEAKNESS . Comparison: April 07, 2022 FINDINGS: MEDIASTINUM: The cardiac silhouette is slightly enlarged. LUNGS: No infiltrates, effusions or pneumothorax. OTHER: No free air under the diaphragm. Degenerative the spine. IMPRESSION: No acute cardiopulmonary pathology. Reviewed, dictated and finalized at location A.
--- NOTE | 2024-04-23 12:22 | ED.GENADULT ---
HPI - General Adult General Chief complaint: Nausea/Vomiting/Diarrhea Stated complaint: unspecified Time Seen by Provider: 04/23/24 12:17 Source: patient History of Present Illness HPI narrative: 73 YEARS OLD WHITE FEMALE CAME FROM HOME BY AMBULANCE COMPLAINING OF DIARRHEA, OVER THE LAST 2 DAYS. PATIENT REPORTS A LOT OF DIARRHEA. ALSO COMPLAINING OF FREQUENT URINATION FOR THE LAST 24 HOURS. SHE DENIES ANY FEVER, CHILLS, NAUSEA, VOMITING. PATIENT HAD SIMILAR SYMPTOM IN THE PAST SECONDARY TO GASTROPARESIS. PATIENT DOES NOT HAVE HISTORY OF DIABETES. HISTORY OF HYPERTENSION, HYPERLIPIDEMIA, COPD, APPENDECTOMY AND HYSTERECTOMY PATIENT ON HOME OXYGEN BY NASAL CANNULA NEEDED DURING DAYTIME, 4 L AT NIGHT. CURRENTLY ON 1.5 L WITH SATURATION 99% Related Data Home Medications Medication Instructions Recorded Confirmed atorvastatin 10 mg tablet 10 mg PO HS 09/09/19 02/19/21 cholecalciferol (vitamin D3) 10 400 unit PO DAILY 09/09/19 02/19/21 mcg (400 unit) tablet famciclovir 250 mg tablet 250 mg PO Q12H 09/09/19 02/19/21 fluticasone propionate 110 1 puff inhalation DAILY 09/09/19 02/19/21 mcg/actuation HFA aerosol inhaler (Flovent HFA) fluticasone propionate 50 2 spray intranasal DAILY 09/09/19 02/19/21 mcg/actuation nasal spray,suspension gabapentin 800 mg tablet 1,200 mg PO TID 09/09/19 02/19/21 lidocaine 5 % topical patch 1 patch topical DAILY 09/09/19 02/19/21 pantoprazole 40 mg tablet,delayed 40 mg PO HS 09/09/19 02/19/21 release primidone 50 mg tablet 100 mg PO BID 09/09/19 02/19/21 sennosides 8.6 mg capsule (senna) 8.6 mg PO BID 09/09/19 02/19/21 vitamin E 268 mg (400 unit) capsule 800 unit PO DAILY 09/09/19 02/19/21 ascorbate calcium (vitamin C) 500 500 mg PO BID 05/31/20 02/19/21 mg tablet bisacodyl 5 mg tablet 10 mg PO ONCE 05/31/20 02/19/21 cholecalciferol (vitamin D3) 1,250 1,250 mcg PO WEEKLY 05/31/20 02/19/21 mcg (50,000 unit) tablet docusate sodium 100 mg tablet 100 mg PO DAILY PRN Constipation 05/31/20 02/19/21 ferrous sulfate 325 mg (65 mg 325 mg PO BID 05/31/20 02/19/21 iron) tablet furosemide 40 mg tablet 40 mg PO BID 05/31/20 02/19/21 melatonin 5 mg tablet 5 mg PO HS 05/31/20 02/19/21 ondansetron 4 mg disintegrating 4 mg PO Q8H PRN Nausea 05/31/20 02/19/21 tablet oxycodone-acetaminophen 5 mg-325 1 tablet PO 2XW PRN Pain 05/31/20 02/19/21 mg tablet (Percocet) sodium chloride 0.65 % nasal spray 2 spray intranasal QID PRN Allergy 05/31/20 02/19/21 aerosol ([place] Nasal) Symptoms spironolactone 25 mg tablet 25 mg PO DAILY 05/31/20 02/19/21 baclofen 10 mg tablet 10 mg PO TID 02/19/21 02/19/21 losartan 100 mg tablet 100 mg PO DAILY 02/19/21 02/19/21 pregabalin 150 mg capsule 150 mg PO BID 02/19/21 02/19/21 zolpidem 10 mg tablet 10 mg PO HS 02/19/21 02/19/21 Allergies Allergy/AdvReac Type Severity Reaction Status Date / Time Fish Containing Products Allergy Severe Dyspnea / Verified 04/23/24 18:09 SOB iodine Allergy Unknown Unknown Verified 04/23/24 18:09 Barbiturates Allergy Unknown Verified 04/23/24 18:09 diazepam [From Valium] Allergy Unknown Verified 04/23/24 18:09 latex Allergy Unknown Verified 04/23/24 18:09 Sulfa (Sulfonamide Allergy Unknown Verified 04/23/24 18:09 Antibiotics) sodium penathol Allergy Unknown Uncoded 04/23/24 18:09 Contrast Media AdvReac Intermediate Hives / Uncoded 04/23/24 18:09 Red Face Review of Systems Review of Systems: All systems reviewed & are unremarkable except as noted in HPI and below PMFSH Past Medical History Medical History (Updated 04/23/24 @ 18:24 by Anthony Garcia MD) Anemia Ankle fracture, right ORIF of the right ankle Anxiety Asthma Chronic hyponatremia Depression Diverticulitis Epilepsy patient stated she did have a seizure for 10 years and was removed from her medicine. Gastroparesis GERD (gastroesophageal reflux disease) History of bipolar disorder History of home oxygen therapy 2L HLD (hyperlipidemia)
[2024-04-23] MEDS: ONDANSETRON INJ 4 MG/2 ML VIAL IV PUSH (12:40)
[2024-04-23] MEDS: SODIUM CHLORIDE 0.9% IV 1,000 ML 999 ML IV CONT (12:40)
[2024-04-23 14:22] LABS: Basophils Percent Auto 0.3 % (0.2-1.2); Eosinophils Absolute Auto 0.1 K/mm3 (0-0.3); Eosinophils Percent Auto 0.7 % (0-4.4); Hematocrit 36.4 % (37.0-47.0); Hemoglobin 12.6 g/dL (12.0-15.0); Immature Granulocyte Absolute 0.07 K/mm3 (0.00-0.031); Immature Granulocyte Percent A 0.5 % (0-0.5); Immature Platelet Fraction Pct 6.2 % (0.9-11.2); Lymphocytes Absolute Auto 1.98 K/mm3 (0.9-3.2); Lymphocytes Percent Auto 14.9 % (18.3-44.2); Mean Corpuscular HGB Conc 34.6 g/dl (32-36); Mean Corpuscular Hemoglobin 33.2 pg (26-34); Mean Platelet Volume 10.3 fl (7.4-10.4); Monocytes Absolute Auto 1.2 K/mm3 (0.1-0.6); Monocytes Percent Auto 8.7 % (2.6-8.5); Neutrophils Absolute Auto 9.9 K/mm3 (1.3-6.7); Neutrophils Percent Auto 74.9 % (45.5-73.1); Platelet Count Result 144 k/mm3 (150-375); Red Blood Count 3.79 M/mm3 (4.2-5.4); Red Cell Distribution Width 12.5 % (11.5-14.5); White Blood Count 13.3 K/mm3 (4.5-10.0)
[2024-04-23 14:49] LABS: Add Urine Microscopic? YES; Appearance Urine Clear (Clear); Bacteria Urine 4+ /hpf; Bilirubin Urine Negative (Negative); Blood Urine Negative (Negative); Color Urine Yellow (Yellow); Glucose Urine UA Negative (Negative); Ketones Urine Negative (Negative); Leukocyte Esterase Ur 1+ LEU/UL (Negative); Nitrate Urine Positive (Negative); Protein Urine Trace mg/dL (Negative); RBC Urine 0-2 /hpf (0-2); Specific Grav Ur 1.011 (1.001-1.035); Squamous Epithelial Cell Urine None Seen /hpf (Few); Urobilinogen Urine 0.2 mg/dL (<2.0)
[2024-04-23 14:53] LABS: Alanine Aminotransferase 21 U/L (6-35); Albumin Level 3.9 g/dL (3.5-5.1); Alkaline Phosphatase 72 U/L (38-126); Anion Gap 8 mmol/L (4-12); Aspartate Amino Transferase 27 U/L (14-36); Bilirubin,Total 0.4 mg/dL (0.2-1.3); Blood Urea Nitrogen 14 mg/dL (7-17); Calcium 8.5 mg/dL (8.4-10.2); Carbon Dioxide 27 mmol/L (22-30); Chloride 92 mmol/L (98-107); Estimated CRCL calculation 62 ml/min; Estimated Glomerular Filt Rate > 60; Glucose 93 mg/dL (65-110); Potassium 4.6 mmol/L (3.4-5.0); Sodium 127 mmol/L (137-145)
[2024-04-23 18:53] LABS: Influenza A QL RT-PCR Negative (Negative); Influenza B QL RT-PCR Negative (Negative); RSV RNA, RT-PCR Negative (Negative); SARS-CoV-2 RNA PCR Negative (Negative)
--- NOTE | 2024-04-23 19:30 | PM.IMHP ---
H&P: HPI History of Present Illness Date/Time: 04/23/24 20:00 Chief Complaint: Nausea and diarrhea. Narrative: This is a 73-year-old female with chronic respiratory failure on home oxygen, asthma, obstructive sleep apnea, hypertension, hyperlipidemia, anemia, depression, anxiety, and other comorbidities who presented to the emergency department via EMS for evaluation of nausea and diarrhea. The patient provides the following history. She had too numerous to count is of watery, brown diarrhea over the course of and Wednesday. On Wednesday night she began having troubles with urinary incontinence which is unusual for her. She has been feeling a bit weak since that time. This morning she lost her balance while on the toilet and fell back, striking her head and low back on the bathtub. She used her [employer] Alert to call for help and was brought in for evaluation. At the time my evaluation she is complaining of pain in the mid low back and generalized malaise. She denies fever, abdominal pain (noticeably tender to palpation over the left side of the abdomen), dysuria, hematuria, syncope, near syncope, chest pain, cough, shortness of breath, and blood or mucus in the stool. No recent travel, sick contacts, or antibiotic use. In the ED: She was afebrile on arrival with stable blood pressures. Labs are significant for a WBC count of 13.3, hemoglobin 12.4, platelet 144, sodium 127, chloride 92, creatinine 0.70. Urinalysis was positive for nitrates, 1+ leukocyte esterase, 11 to 20 WBC, and 4+ bacteria. She tested negative for influenza, RSV, and COVID. Chest x-ray was negative. She was given a L of normal saline and 1 g ceftriaxone and she is being admitted in this setting for further treatment. Review of Systems Review of Systems: 12 systems were reviewed and are negative except for as per HPI. [facility] Past Medical History Medical History Anxiety Asthma Bipolar disorder Chronic anemia Chronic hyponatremia Chronic respiratory failure with hypoxia, on home oxygen therapy Depression Diverticulitis Epilepsy No longer on medication. Gastroesophageal reflux disease Gastroparesis Hyperlipidemia Hypertension Kidney stone Left tibial fracture Obstructive sleep apnea Intolerant to CPAP. Seasonal allergies Shingles Surgical History Surgical History History of appendectomy History of cholecystectomy History of hysterectomy History of left above knee amputation History of left knee replacement History of open reduction and internal fixation (ORIF) procedure Left tibia and right ankle. History of right shoulder replacement History of tonsillectomy Family History Family History Mother Suicide Depression Heart disease Hypertension Heart failure Sibling Suicide Father Diabetes mellitus Emphysema lung Social History Social History Social History: Surrogate medical decision maker: Martina Rodney, daughter. Code status: Full code. Smoking status: Never smoker Alcohol intake: never Substance use: never Do You Feel Safe in your Home?: No Lack of Transportation: No Lack of Food: Never True Current Housing: I Have Housing Concerned About Future Housing: No Difficulty Paying Gas/Electric Bills: No Difficulty Paying for Meds: No Currently Unemployed: No Education: High School Diploma/GED Difficulty w/ Childcare or Family Care: No Living arrangements: [facility] Occupation/Education: retired Spiritual care concerns: No Agree to blood products: No Meds Home Medications and Allergies Home Medications Medication Instructions Recorded Confirmed Type atorvastatin 10 mg tablet 10 mg PO HS 09/09/19 04/23/24 History cholecalciferol (vitamin D3) 10 400 un
--- NOTE | 2024-04-23 20:41 | ADMGEN ---
This patient, Celestina Ewing, was admitted to [facility] Surg Room 324-01 at 1920. Patient/family oriented to hospital policies and general routines including ID bracelet, bed and alarms, visiting hours, pain management, procedures, bathroom and other care routines, personal items, smoking policy, room service/diet, and visiting hours. Information on how to activate the Rapid Response Team has been discussed. Patient/Family are encouraged to report perceived risks to care and to ask questions if they do not understand what they are told or what they should do.
[2024-04-23] MEDS: SODIUM CHLORIDE 0.9% IV 1,000 ML 150 ML IV CONT (20:45)
--- NOTE | 2024-04-23 20:50 | ECG_ITS ---
Test Date: 2024-04-23 21:01:17 Measurements Intervals [place] Rate: 114 P: 38 OK: 171 QRS: -29 QRSD: 94 T: 101 QT: 326 QTc: 449 Interpretive Statements SINUS TACHYCARDIA LEFT VENTRICULAR HYPERTROPHY AND ST-T CHANGE MINIMAL Q WAVES- HIGH LATERAL LEADS BASELINE ARTIFACT- I, II, III, AVR, AVL, AVF, V1-V2 ABNORMAL ECG No previous ECG available for comparison Electronically Signed On 04-24-2024 06:22:09 CDT by Balaji Gomez D.O.
[2024-04-23] MEDS: METOPROLOL TARTRATE 50 MG TAB 100 MG PO (21:43)
[2024-04-23] MEDS: oxyCODONE HCL (*CRX) 5 MG TAB IR PO (21:43)
[2024-04-23] MEDS: LORazepam (*CRX) 1 MG TABLET PO (21:44)
[2024-04-23] MEDS: PRIMIDONE 50 MG TABLET 200 MG PO (21:44)
[2024-04-23] MEDS: PREGABALIN (*CRX) 75 MG CAPSULE 150 MG PO (21:44)
[2024-04-23] MEDS: ATORVASTATIN 10 MG TABLET PO (21:45)
[2024-04-23 22:07] LABS: Lactic Acid Reflex 1.5 mmol/L (0.7-2.0)
[2024-04-23 22:16] LABS: Anion Gap 12 mmol/L (4-12); Blood Urea Nitrogen 11 mg/dL (7-17); Calcium 8.7 mg/dL (8.4-10.2); Carbon Dioxide 24 mmol/L (22-30); Chloride 92 mmol/L (98-107); Estimated CRCL calculation 75 ml/min; Estimated Glomerular Filt Rate > 60; Glucose 90 mg/dL (65-110); Potassium 4.9 mmol/L (3.4-5.0); Sodium 128 mmol/L (137-145)
[2024-04-23] MEDS: FAMCICLOVIR 250 MG TABLET PO (22:54)
[2024-04-23 23:04] LABS: Magnesium 1.7 mg/dL (1.6-2.3)
[2024-04-24] VITALS (10 sets, daily range): BP systolic 147–162; BP diastolic 71–78; PULSE 87–95; RESP 12–17; TEMP 36.2–36.8; O2SAT 91–99
[2024-04-24] MEDS: SODIUM CHLORIDE 0.9% IV 1,000 ML 150 ML IV CONT ×3 (04:04→15:52)
[2024-04-24 04:58] LABS: Creatinine Urine 65.4 mg/dL; Urea Random Urine 346 MG/DL
[2024-04-24 05:04] LABS: Sodium Urine Random 51 meq/L
[2024-04-24] MEDS: LORazepam (*CRX) 1 MG TABLET PO ×3 (05:55→21:13)
[2024-04-24] MEDS: oxyCODONE HCL (*CRX) 5 MG TAB IR PO ×3 (05:55→21:13)
[2024-04-24 06:17] LABS: Hematocrit 35.5 % (37.0-47.0); Hemoglobin 12.1 g/dL (12.0-15.0); Mean Corpuscular HGB Conc 34.1 g/dl (32-36); Mean Corpuscular Hemoglobin 33.6 pg (26-34); Mean Corpuscular Volume 98.6 fl (80-100); Mean Platelet Volume 10.5 fl (7.4-10.4); Platelet Count Result 158 k/mm3 (150-375); Red Cell Distribution Width 12.5 % (11.5-14.5); White Blood Count 13.9 K/mm3 (4.5-10.0)
[2024-04-24] MEDS: FLUTICASONE/SALMETEROL 115-21 MCG INHALER 1 PUFF 2 PUFF INHALATION ×2 (06:18→19:55)
[2024-04-24 06:29] LABS: Anion Gap 7 mmol/L (4-12); Blood Urea Nitrogen 8 mg/dL (7-17); Carbon Dioxide 27 mmol/L (22-30); Chloride 95 mmol/L (98-107); Estimated CRCL calculation 75 ml/min; Estimated Glomerular Filt Rate > 60; Glucose 88 mg/dL (65-110); Potassium 4.2 mmol/L (3.4-5.0); Sodium 129 mmol/L (137-145)
--- NOTE | 2024-04-24 08:43 | PM.IMPN ---
Progress Note: A&P Assessment and Plan (1) Fall from toilet seat: Code(s): W18.11XA - Fall from or off toilet without subsequent striking against object, initial encounter Status: Acute (2) Tachycardia: Code(s): R00.0 - Tachycardia, unspecified Status: Acute (3) Asthma: Code(s): J45.909 - Unspecified asthma, uncomplicated Status: Acute (4) Chronic anemia: Code(s): D64.9 - Anemia, unspecified Status: Acute Plan The patient presented to the emergency department for evaluation after she slid off of the toilet this morning as detailed in HPI. Labs, imaging, EKG, and all reports were personally reviewed. She had diarrhea on and Wednesday and developed urinary symptoms thereafter. She has been started on ceftriaxone for urinary tract infection, pending urine culture. She was quite tender to palpation over the left side of the abdomen and a CT scan of the abdomen has been ordered. She is dehydrated and will receive normal saline overnight. Sodium and chloride are both low and should improve with fluids. Repeat BMP this evening to ensure we are trending in the right direction. The patient is tachycardic which may be due to the fact that she did not take her metoprolol this morning however blood cultures and lactic acid level have been ordered to rule out sepsis. Blood pressures were reviewed and they have been stable. No evidence to suggest asthma exacerbation. She is at her baseline oxygen requirements. Brain CT ordered as she did strike her head in the fall today. Initiate fall precautions. Consult PT/OT. 04/14: Images reviewed-No fractures from the fall Continue ceftriaxone for UTI UC pending No diarrhea at the hospital CXR negative Negative for RSV,Influenza and COVID Subjective Date/time seen: 04/24/24 08:43 Interval history: Patient was evaluated at the bedside. Patient pain at lower back . Patient reports of fall on Wednesday. No episodes of urinary incontinence or fecal incontinence. He was the patient had a previous episodes of diarrhea for past 2 days (multiple episodes) currently she denies any diarrhea. Objective Data Vital Signs Vital Signs: Vital Signs - 24 hr 04/23/24 11:59 04/23/24 15:49 04/23/24 17:09 Temperature 98.9 F Pulse Rate 82 87 82 Respiratory Rate 16 15 16 Blood Pressure 166/79 H 162/74 H 132/59 L Pulse Oximetry 87 L 99 100 Oxygen Delivery Room Air Oxygen Flow Rate Fraction of Inspired Oxygen 04/23/24 18:55 04/23/24 20:00 04/23/24 21:43 Temperature 97.8 F Pulse Rate 103 H 111 H 114 H Respiratory Rate 19 17 Blood Pressure 156/72 H 133/54 L Pulse Oximetry 97 99 Oxygen Delivery Oxygen Flow Rate Fraction of Inspired Oxygen 04/23/24 20:00 04/23/24 23:00 04/24/24 06:00 Temperature 97.1 F L Pulse Rate 87 Respiratory Rate 13 Blood Pressure 148/75 H Pulse Oximetry 99 99 95 Oxygen Delivery Nasal Cannula Nasal Cannula Oxygen Flow Rate 3 4 Fraction of Inspired Oxygen 04/24/24 06:23 04/23/24 23:00 04/24/24 07:58 Temperature Pulse Rate 87 Respiratory Rate 17 Blood Pressure Pulse Oximetry 98 95 Oxygen Delivery Nasal Cannula Nasal Cannula Oxygen Flow Rate 4 4 Fraction of Inspired Oxygen 04/24/24 08:16 Temperature Pulse Rate Respiratory Rate Blood Pressure Pulse Oximetry 95 Oxygen Delivery Nasal Cannula Oxygen Flow Rate 4 Fraction of Inspired Oxygen 36 Intake/Output Intake/Output: Intake & Output 04/21/24 04/22/24 04/23/24 04/24/24 23:59 23:59 23:59 23:59 Intake Total 1050 1400 Output Total 100 Balance 1050 1300 Meds/Results Medications: Active Medications Generic Name Dose Route Start Last Admin Trade Name Freq PRN Reason Stop Dose Admin Acetaminophen 650 mg 04/23/24 18:24 Acetaminophen 325 Mg Tablet PO Q4H PRN Mild Pain (1-3) or Fever Albuterol 1 puff 04/23/24 20:53 Albuterol Sulfate (*Sp) Aerosol 1 Puff INHALATION
[2024-04-24] MEDS: METOPROLOL TARTRATE 50 MG TAB 100 MG PO ×2 (09:00→21:13)
[2024-04-24] MEDS: MEMANTINE 5 MG TABLET PO ×2 (09:00→16:20)
[2024-04-24] MEDS: VITAMIN E 400 UNIT CAPSULE 800 UNIT PO (09:00)
[2024-04-24] MEDS: LOSARTAN POTASSIUM 100 MG TABLET PO (09:00)
[2024-04-24] MEDS: VITAMIN B COMPLEX CAPSULE 1 CAP PO ×2 (09:00→16:20)
[2024-04-24] MEDS: PRIMIDONE 50 MG TABLET 200 MG PO ×2 (09:00→21:12)
[2024-04-24] MEDS: PANTOPRAZOLE 40 MG TABLET PO (09:00)
[2024-04-24] MEDS: BACLOFEN 10 MG TABLET PO ×3 (09:00→16:20)
[2024-04-24] MEDS: CHOLECALCIFEROL 400 UNITS TABLET (VIT D) PO (09:00)
[2024-04-24] MEDS: amLODIPine BESYLATE 10 MG TABLET PO (09:01)
[2024-04-24] MEDS: PREGABALIN (*CRX) 75 MG CAPSULE 150 MG PO ×2 (09:01→21:13)
--- NOTE | 2024-04-24 09:37 | PC.NURSE ---
To Radiology per hospital bed.
[2024-04-24] MEDS: FAMCICLOVIR 250 MG TABLET PO ×2 (09:41→21:13)
--- NOTE | 2024-04-24 10:03 | PC.NURSE ---
Return from Radiology per hospital bed.
[2024-04-24] MEDS: FLUTICASONE PROPIONATE 0.05% NA SPR 16 GM BTL (*BKC) 2 SPRAY NASAL (12:31)
[2024-04-24] MEDS: ATORVASTATIN 10 MG TABLET PO (21:12)
[2024-04-25] VITALS (7 sets, daily range): BP systolic 104–177; BP diastolic 38–68; PULSE 64–107; RESP 12–20; TEMP 36.7–37.2; O2SAT 92–98
[2024-04-25] MEDS: SODIUM CHLORIDE 0.9% IV 1,000 ML 150 ML IV CONT ×3 (01:30→17:05)
[2024-04-25] MEDS: LORazepam (*CRX) 1 MG TABLET PO ×2 (03:00→18:31)
[2024-04-25] MEDS: oxyCODONE HCL (*CRX) 5 MG TAB IR PO ×3 (03:00→20:34)
[2024-04-25] MEDS: FLUTICASONE/SALMETEROL 115-21 MCG INHALER 1 PUFF 2 PUFF INHALATION ×2 (07:41→20:52)
[2024-04-25 08:00] LABS: Hematocrit 34.3 % (37.0-47.0); Hemoglobin 11.6 g/dL (12.0-15.0); Mean Corpuscular HGB Conc 33.8 g/dl (32-36); Mean Corpuscular Hemoglobin 33.1 pg (26-34); Mean Platelet Volume 10.7 fl (7.4-10.4); Platelet Count Result 165 k/mm3 (150-375); Red Cell Distribution Width 12.4 % (11.5-14.5); White Blood Count 10.1 K/mm3 (4.5-10.0)
[2024-04-25 08:07] LABS: Alanine Aminotransferase 16 U/L (6-35); Albumin Level 3.5 g/dL (3.5-5.1); Alkaline Phosphatase 85 U/L (38-126); Anion Gap 6 mmol/L (4-12); Aspartate Amino Transferase 28 U/L (14-36); Bilirubin,Total 0.3 mg/dL (0.2-1.3); Blood Urea Nitrogen 5 mg/dL (7-17); Calcium 7.7 mg/dL (8.4-10.2); Carbon Dioxide 27 mmol/L (22-30); Chloride 99 mmol/L (98-107); Estimated CRCL calculation 86 ml/min; Estimated Glomerular Filt Rate > 60; Glucose 88 mg/dL (65-110); Potassium 4.1 mmol/L (3.4-5.0); Sodium 132 mmol/L (137-145)
[2024-04-25] MEDS: PRIMIDONE 50 MG TABLET 200 MG PO ×2 (08:47→20:34)
[2024-04-25] MEDS: CHOLECALCIFEROL 400 UNITS TABLET (VIT D) PO (08:47)
[2024-04-25] MEDS: PREGABALIN (*CRX) 75 MG CAPSULE 150 MG PO ×2 (08:48→20:32)
[2024-04-25] MEDS: PANTOPRAZOLE 40 MG TABLET PO (08:48)
[2024-04-25] MEDS: MEMANTINE 5 MG TABLET PO ×2 (08:49→18:25)
[2024-04-25] MEDS: FAMCICLOVIR 250 MG TABLET PO ×2 (08:49→20:32)
[2024-04-25] MEDS: LOSARTAN POTASSIUM 100 MG TABLET PO (08:49)
[2024-04-25] MEDS: VITAMIN B COMPLEX CAPSULE 1 CAP PO ×2 (08:49→18:26)
[2024-04-25] MEDS: BACLOFEN 10 MG TABLET PO ×3 (08:49→18:26)
[2024-04-25] MEDS: METOPROLOL TARTRATE 50 MG TAB 100 MG PO ×2 (08:49→20:33)
[2024-04-25] MEDS: VITAMIN E 400 UNIT CAPSULE 800 UNIT PO (08:49)
[2024-04-25] MEDS: FLUTICASONE PROPIONATE 0.05% NA SPR 16 GM BTL (*BKC) 2 SPRAY NASAL (08:50)
[2024-04-25] MEDS: amLODIPine BESYLATE 10 MG TABLET PO (08:50)
--- NOTE | 2024-04-25 15:19 | PM.IMPN ---
Progress Note: A&P Assessment and Plan (1) Fall from toilet seat: Code(s): W18.11XA - Fall from or off toilet without subsequent striking against object, initial encounter Status: Acute (2) Tachycardia: Code(s): R00.0 - Tachycardia, unspecified Status: Acute (3) Asthma: Code(s): J45.909 - Unspecified asthma, uncomplicated Status: Acute (4) Chronic anemia: Code(s): D64.9 - Anemia, unspecified Status: Acute Plan UTi Urine culture positive for Klebsiella pneumoniae continue Rocephin Blood culture positive for GPC in clusters? contaminant Fall No fractures on imaging PT/OT consulted Continue home bronchodilators, continue other home meds Awaiting finalization of positive blood culture for discharge planning DVT prophyalxis on Sq Lovenox Subjective Date/time seen: 04/25/24 15:19 Interval history: Patient comfortable at room air Awaiting PT/Ot eval Review of Systems Review of Systems: 12 systems were reviewed and are negative except for as per HPI. Exam Narrative: General: Mildly ill-appearing female in the semi-Siegel position in bed. Weight: 90.9 kg. BMI: 37.9. HEENT: PERRL, EOMI. Sclera anicteric. Tacky mucous membranes. Neck: Supple. No midline vertebral tenderness. Respiratory: Respirations are nonlabored. Lung sounds are a bit diminished with faint expiratory wheezing. Cardiovascular: Tachycardic with normal S1-S2. Gastrointestinal: Abdomen is soft and nondistended with positive bowel sounds. She is tender to palpation over the left side of the abdomen. No guarding or rebound tenderness. Equivocal left-sided CVA tenderness. Skin: Warm and dry. No rash or lesions on limited exam. Extremities: No cyanosis, clubbing, or right lower extremity edema. Status post left [id number] amputation. Neurological: Alert. Cranial nerves 2-12 are grossly intact. Generally weak without gross focal deficits. Psychiatric: Cooperative with appropriate mood and flat affect. Objective Data Vital Signs Vital Signs: Vital Signs - 24 hr 04/24/24 19:55 04/24/24 21:10 04/24/24 21:13 Temperature 98.1 F Pulse Rate 91 95 Respiratory Rate 13 Blood Pressure 147/78 H Pulse Oximetry 91 99 Oxygen Delivery Nasal Cannula Oxygen Flow Rate 2 04/24/24 20:00 04/25/24 05:27 04/25/24 07:45 Temperature 98.0 F Pulse Rate 92 Respiratory Rate 12 Blood Pressure 160/68 H Pulse Oximetry 99 98 95 Oxygen Delivery Nasal Cannula Nasal Cannula Oxygen Flow Rate 3 3 04/25/24 07:45 04/25/24 08:00 04/25/24 13:00 Temperature Pulse Rate 98 Respiratory Rate 20 Blood Pressure Pulse Oximetry Oxygen Delivery Room Air Room Air Oxygen Flow Rate 04/25/24 13:21 Temperature Pulse Rate Respiratory Rate Blood Pressure Pulse Oximetry Oxygen Delivery Room Air Oxygen Flow Rate Intake/Output Intake/Output: Intake & Output 04/22/24 04/23/24 04/24/24 04/25/24 23:59 23:59 23:59 23:59 Intake Total 1050 3947.0 2840 Output Total 100 750 Balance 1050 3847.0 2090 Meds/Results Medications: Active Medications Generic Name Dose Route Start Last Admin Trade Name Freq PRN Reason Stop Dose Admin Acetaminophen 650 mg 04/23/24 18:24 Acetaminophen 325 Mg Tablet PO Q4H PRN Mild Pain (1-3) or Fever Albuterol 1 puff 04/23/24 20:53 Albuterol Sulfate (*Sp) Aerosol 1 Puff INHALATION DAILY PRN sob/wheezing Amlodipine Besylate 10 mg 04/24/24 09:00 04/25/24 08:50 Amlodipine Besylate 10 Mg Tablet PO 10 mg DAILY KELIN Administration Atorvastatin Calcium 10 mg 04/23/24 21:00 04/24/24 21:12 Atorvastatin 10 Mg Tablet PO 10 mg HS KELIN Administration Baclofen 10 mg 04/24/24 09:00 04/25/24 12:56 Baclofen 10 Mg Tablet PO 10 mg TID KELIN Administration Bisacodyl 10 mg 04/23/24 20:53 Bisacodyl 5 Mg Tablet Ec PO HS PRN Constipation Famcicl
[2024-04-25] MEDS: ATORVASTATIN 10 MG TABLET PO (20:33)
[2024-04-26] VITALS (7 sets, daily range): BP systolic 110–190; BP diastolic 54–92; PULSE 84–104; RESP 18–20; TEMP 36.7–37; O2SAT 94–100
[2024-04-26] MEDS: oxyCODONE HCL (*CRX) 5 MG TAB IR PO ×5 (00:15→21:14)
[2024-04-26] MEDS: LORazepam (*CRX) 1 MG TABLET PO ×3 (00:15→21:11)
[2024-04-26] MEDS: SODIUM CHLORIDE 0.9% IV 1,000 ML 150 ML IV CONT (00:16)
[2024-04-26 07:24] LABS: Basophils Absolute Auto 0.1 K/mm3 (0.0-0.1); Basophils Percent Auto 0.5 % (0.2-1.2); Eosinophils Absolute Auto 0.2 K/mm3 (0-0.3); Eosinophils Percent Auto 1.9 % (0-4.4); Hematocrit 32.3 % (37.0-47.0); Hemoglobin 11.3 g/dL (12.0-15.0); Immature Granulocyte Absolute 0.39 K/mm3 (0.00-0.031); Immature Granulocyte Percent A 4.2 % (0-0.5); Lymphocytes Absolute Auto 1.69 K/mm3 (0.9-3.2); Lymphocytes Percent Auto 18.1 % (18.3-44.2); Mean Corpuscular Hemoglobin 33.6 pg (26-34); Mean Corpuscular Volume 96.1 fl (80-100); Mean Platelet Volume 10.2 fl (7.4-10.4); Monocytes Percent Auto 10.3 % (2.6-8.5); Neutrophils Absolute Auto 6.1 K/mm3 (1.3-6.7); Platelet Count Result 152 k/mm3 (150-375); Red Blood Count 3.36 M/mm3 (4.2-5.4); Red Cell Distribution Width 12.1 % (11.5-14.5); White Blood Count 9.4 K/mm3 (4.5-10.0)
[2024-04-26 07:37] LABS: Alanine Aminotransferase 21 U/L (6-35); Albumin Level 3.5 g/dL (3.5-5.1); Alkaline Phosphatase 86 U/L (38-126); Anion Gap 5 mmol/L (4-12); Aspartate Amino Transferase 29 U/L (14-36); Bilirubin,Total 0.3 mg/dL (0.2-1.3); Blood Urea Nitrogen 4 mg/dL (7-17); Calcium 7.3 mg/dL (8.4-10.2); Carbon Dioxide 29 mmol/L (22-30); Chloride 95 mmol/L (98-107); Estimated CRCL calculation 86 ml/min; Estimated Glomerular Filt Rate > 60; Glucose 97 mg/dL (65-110); Magnesium 1.4 mg/dL (1.6-2.3); Sodium 129 mmol/L (137-145)
[2024-04-26] MEDS: VITAMIN E 400 UNIT CAPSULE 800 UNIT PO (09:01)
[2024-04-26] MEDS: PANTOPRAZOLE 40 MG TABLET PO (09:01)
[2024-04-26] MEDS: LOSARTAN POTASSIUM 100 MG TABLET PO (09:03)
[2024-04-26] MEDS: PRIMIDONE 50 MG TABLET 200 MG PO ×2 (09:03→21:09)
[2024-04-26] MEDS: amLODIPine BESYLATE 10 MG TABLET PO (09:03)
[2024-04-26] MEDS: VITAMIN B COMPLEX CAPSULE 1 CAP PO ×2 (09:04→16:40)
[2024-04-26] MEDS: CHOLECALCIFEROL 400 UNITS TABLET (VIT D) PO (09:04)
[2024-04-26] MEDS: ENOXAPARIN 40 MG/0.4 ML SYRINGE SUB-Q (09:04)
[2024-04-26] MEDS: MEMANTINE 5 MG TABLET PO ×2 (09:04→16:40)
[2024-04-26] MEDS: PREGABALIN (*CRX) 75 MG CAPSULE 150 MG PO ×2 (09:04→21:11)
[2024-04-26] MEDS: BACLOFEN 10 MG TABLET PO ×3 (09:04→16:41)
[2024-04-26] MEDS: FAMCICLOVIR 250 MG TABLET PO ×2 (09:04→21:11)
[2024-04-26] MEDS: METOPROLOL TARTRATE 50 MG TAB 100 MG PO ×2 (09:04→21:09)
[2024-04-26] MEDS: FLUTICASONE PROPIONATE 0.05% NA SPR 16 GM BTL (*BKC) 2 SPRAY NASAL (09:04)
[2024-04-26] MEDS: FLUTICASONE/SALMETEROL 115-21 MCG INHALER 1 PUFF 2 PUFF INHALATION ×2 (10:25→20:13)
--- NOTE | 2024-04-26 16:26 | PM.IMPN ---
Progress Note: A&P Assessment and Plan (1) Fall from toilet seat: Code(s): W18.11XA - Fall from or off toilet without subsequent striking against object, initial encounter Status: Acute (2) Tachycardia: Code(s): R00.0 - Tachycardia, unspecified Status: Acute (3) Asthma: Code(s): J45.909 - Unspecified asthma, uncomplicated Status: Acute (4) Chronic anemia: Code(s): D64.9 - Anemia, unspecified Status: Acute Plan UTi Urine culture positive for Klebsiella pneumoniae changed Rocephin to Keflex to complete total of 7 days Blood culture positive for S epidermidis in one bottle which is a contaminant Fall No fractures on imaging PT/OT consulted Continue home bronchodilators, continue other home meds DVT prophylaxis on Sq Lovenox Discharge to SNF tomorrow Subjective Date/time seen: 04/26/24 16:26 Interval history: Patient comfortable at room air possible discharge tomorrow to Urine culture sensitivity reviewed Review of Systems Review of Systems: 12 systems were reviewed and are negative except for as per HPI. Exam Narrative: General: Mildly ill-appearing female in the semi-Siegel position in bed. Weight: 90.9 kg. BMI: 37.9. HEENT: PERRL, EOMI. Sclera anicteric. Tacky mucous membranes. Neck: Supple. No midline vertebral tenderness. Respiratory: Respirations are nonlabored. Lung sounds are a bit diminished with faint expiratory wheezing. Cardiovascular: Tachycardic with normal S1-S2. Gastrointestinal: Abdomen is soft and nondistended with positive bowel sounds. She is tender to palpation over the left side of the abdomen. No guarding or rebound tenderness. Equivocal left-sided CVA tenderness. Skin: Warm and dry. No rash or lesions on limited exam. Extremities: No cyanosis, clubbing, or right lower extremity edema. Status post left [id number] amputation. Neurological: Alert. Cranial nerves 2-12 are grossly intact. Generally weak without gross focal deficits. Psychiatric: Cooperative with appropriate mood and flat affect. Objective Data Vital Signs Vital Signs: Vital Signs - 24 hr 04/25/24 20:33 04/25/24 20:51 04/25/24 20:59 Temperature 99 F Pulse Rate 102 H 107 H Respiratory Rate 16 Blood Pressure 177/68 H Pulse Oximetry 94 96 Oxygen Delivery Nasal Cannula Oxygen Flow Rate 3 04/25/24 20:30 04/26/24 06:00 04/26/24 09:04 Temperature 98.1 F Pulse Rate 92 85 Respiratory Rate 18 Blood Pressure 190/92 H Pulse Oximetry 92 99 Oxygen Delivery Room Air Oxygen Flow Rate 04/26/24 10:28 04/26/24 10:28 04/26/24 08:00 Temperature Pulse Rate 84 Respiratory Rate 20 Blood Pressure Pulse Oximetry 94 Oxygen Delivery Room Air Room Air Oxygen Flow Rate 04/26/24 14:00 Temperature 98.6 F Pulse Rate 88 Respiratory Rate 18 Blood Pressure 110/54 L Pulse Oximetry 100 Oxygen Delivery Oxygen Flow Rate Intake/Output Intake/Output: Intake & Output 04/23/24 04/24/24 04/25/24 04/26/24 23:59 23:59 23:59 23:59 Intake Total 1050 3997.0 6187.5 1710 Output Total 100 750 650 Balance 1050 3897.0 5437.5 1060 Meds/Results Medications: Active Medications Generic Name Dose Route Start Last Admin Trade Name Freq PRN Reason Stop Dose Admin Acetaminophen 650 mg 04/23/24 18:24 Acetaminophen 325 Mg Tablet PO Q4H PRN Mild Pain (1-3) or Fever Albuterol 1 puff 04/23/24 20:53 Albuterol Sulfate (*Sp) Aerosol 1 Puff INHALATION DAILY PRN sob/wheezing Amlodipine Besylate 10 mg 04/24/24 09:00 04/26/24 09:03 Amlodipine Besylate 10 Mg Tablet PO 10 mg DAILY KELIN Administration Atorvastatin Calcium 10 mg 04/23/24 21:00 04/25/24 20:33 Atorvastatin 10 Mg Tablet PO 10 mg HS KELIN Administration Baclofen 10 mg 04/24/24 09:00 04/26/24 12:28 Baclofen 10 Mg Tablet PO 10 mg TID KELIN Administration Bisacodyl 10 mg
[2024-04-26] MEDS: CEPHALEXIN 500 MG CAPSULE PO (16:40)
[2024-04-26] MEDS: ATORVASTATIN 10 MG TABLET PO (21:11)
[2024-04-27] MEDS: oxyCODONE HCL (*CRX) 5 MG TAB IR PO ×3 (04:53→20:23)
[2024-04-27] MEDS: LORazepam (*CRX) 1 MG TABLET PO ×3 (04:53→20:24)
[2024-04-27 06:00] VITALS: BP 170/71; PULSE 80; RESP 18; TEMP 36.8; O2SAT 98
[2024-04-27 08:10] LABS: Hematocrit 33.1 % (37.0-47.0); Hemoglobin 11.5 g/dL (12.0-15.0); Mean Corpuscular HGB Conc 34.7 g/dl (32-36); Mean Corpuscular Hemoglobin 32.4 pg (26-34); Mean Corpuscular Volume 93.2 fl (80-100); Platelet Count Result 182 k/mm3 (150-375); Red Blood Count 3.55 M/mm3 (4.2-5.4); Red Cell Distribution Width 11.7 % (11.5-14.5); White Blood Count 10.3 K/mm3 (4.5-10.0)
[2024-04-27 08:18] LABS: Alanine Aminotransferase 36 U/L (6-35); Albumin Level 3.8 g/dL (3.5-5.1); Alkaline Phosphatase 96 U/L (38-126); Anion Gap 7 mmol/L (4-12); Aspartate Amino Transferase 42 U/L (14-36); Bilirubin,Total 0.4 mg/dL (0.2-1.3); Blood Urea Nitrogen 7 mg/dL (7-17); Calcium 7.7 mg/dL (8.4-10.2); Carbon Dioxide 27 mmol/L (22-30); Chloride 89 mmol/L (98-107); Estimated CRCL calculation 104 ml/min; Estimated Glomerular Filt Rate > 60; Glucose 102 mg/dL (65-110); Magnesium 1.5 mg/dL (1.6-2.3); Potassium 3.8 mmol/L (3.4-5.0); Sodium 123 mmol/L (137-145)
[2024-04-27] MEDS: FLUTICASONE/SALMETEROL 115-21 MCG INHALER 1 PUFF 2 PUFF INHALATION ×2 (08:49→20:17)
[2024-04-27 08:50] VITALS: O2SAT 93
[2024-04-27] MEDS: VITAMIN B COMPLEX CAPSULE 1 CAP PO ×2 (09:20→16:59)
[2024-04-27] MEDS: CEPHALEXIN 500 MG CAPSULE PO ×2 (09:20→20:23)
[2024-04-27] MEDS: CHOLECALCIFEROL 400 UNITS TABLET (VIT D) PO (09:20)
[2024-04-27] MEDS: PRIMIDONE 50 MG TABLET 200 MG PO ×2 (09:20→20:23)
[2024-04-27] MEDS: FAMCICLOVIR 250 MG TABLET PO ×2 (09:21→20:23)
[2024-04-27] MEDS: PREGABALIN (*CRX) 75 MG CAPSULE 150 MG PO ×2 (09:21→20:23)
[2024-04-27] MEDS: amLODIPine BESYLATE 10 MG TABLET PO (09:21)
[2024-04-27] MEDS: PANTOPRAZOLE 40 MG TABLET PO (09:21)
[2024-04-27] MEDS: METOPROLOL TARTRATE 50 MG TAB 100 MG PO ×2 (09:21→20:24)
[2024-04-27] MEDS: LOSARTAN POTASSIUM 100 MG TABLET PO (09:21)
[2024-04-27] MEDS: VITAMIN E 400 UNIT CAPSULE 800 UNIT PO (09:21)
[2024-04-27] MEDS: DOCUSATE SODIUM 100 MG CAPSULE PO (09:21)
[2024-04-27] MEDS: MEMANTINE 5 MG TABLET PO ×2 (09:22→16:59)
[2024-04-27] MEDS: ENOXAPARIN 40 MG/0.4 ML SYRINGE SUB-Q (09:22)
[2024-04-27] MEDS: BACLOFEN 10 MG TABLET PO ×3 (09:22→16:59)
[2024-04-27] MEDS: FLUTICASONE PROPIONATE 0.05% NA SPR 16 GM BTL (*BKC) 2 SPRAY NASAL (09:22)
[2024-04-27] MEDS: MAGNESIUM SULFATE 3GM/D5W100ML 3 GM/100 ML BAG IVPB (09:22)
[2024-04-27] MEDS: ONDANSETRON INJ 4 MG/2 ML VIAL IV PUSH (09:22)
[2024-04-27 09:50] LABS: Total Cells Counted 100
[2024-04-27 09:51] LABS: Anisocytosis 1+; Band Neutrophils Percent 3 % (0-6); Eosinophils Percent Manual 3 % (0-4); Lymphocytes Absolute Manual 1.64 K/mm3 (1.1-4.5); Lymphocytes Percent Manual 16 % (18-44); Monocytes Absolute Manual 1.03 K/mm3 (0.1-0.90); Monocytes Percent Manual 10 % (3-9); Neutrophils Absolute Manual 7.31 K/mm3 (1.7-7.2); Neutrophils Percent Manual 68 % (46-73); Platelet Estimate Adequate (Adequate)
[2024-04-27 09:52] LABS: Schistocytes None Seen
[2024-04-27 14:00] VITALS: BP 150/77; PULSE 78; RESP 20; TEMP 36.8; O2SAT 92
--- NOTE | 2024-04-27 16:27 | PM.IMPN ---
Progress Note: A&P Assessment and Plan (1) Fall from toilet seat: Code(s): W18.11XA - Fall from or off toilet without subsequent striking against object, initial encounter Status: Acute (2) Tachycardia: Code(s): R00.0 - Tachycardia, unspecified Status: Acute (3) Asthma: Code(s): J45.909 - Unspecified asthma, uncomplicated Status: Acute (4) Chronic anemia: Code(s): D64.9 - Anemia, unspecified Status: Acute Plan UTi Urine culture positive for Klebsiella pneumoniae changed Rocephin to Keflex to complete total of 7 days Blood culture positive for S epidermidis in one bottle which is a contaminant GI bleed Patient had bloody bowel movement monitor H and h chart noted patient allergic to Protonix per alert GI consulted Fall No fractures on imaging PT/OT consulted Continue home bronchodilators, continue other home meds DVT prophylaxis hold Lovenox Discharge to SNF tomorrow Subjective Date/time seen: 04/27/24 16:27 Interval history: Patient comfortable at room air possible discharge tomorrow to [facility] Urine culture sensitivity reviewed Patient has bloody bowel movement this morning, and GI consulted Review of Systems Review of Systems: 12 systems were reviewed and are negative except for as per HPI. Exam Narrative: General: Mildly ill-appearing female in the semi-Siegel position in bed. Weight: 90.9 kg. BMI: 37.9. HEENT: PERRL, EOMI. Sclera anicteric. Tacky mucous membranes. Neck: Supple. No midline vertebral tenderness. Respiratory: Respirations are nonlabored. Lung sounds are a bit diminished with faint expiratory wheezing. Cardiovascular: Tachycardic with normal S1-S2. Gastrointestinal: Abdomen is soft and nondistended with positive bowel sounds. She is tender to palpation over the left side of the abdomen. No guarding or rebound tenderness. Equivocal left-sided CVA tenderness. Skin: Warm and dry. No rash or lesions on limited exam. Extremities: No cyanosis, clubbing, or right lower extremity edema. Status post left [id number] amputation. Neurological: Alert. Cranial nerves 2-12 are grossly intact. Generally weak without gross focal deficits. Psychiatric: Cooperative with appropriate mood and flat affect. Objective Data Vital Signs Vital Signs: Vital Signs - 24 hr 04/26/24 20:13 04/26/24 21:09 04/26/24 22:00 Temperature 98.3 F Pulse Rate 104 H 104 H Respiratory Rate 18 Blood Pressure 172/83 H Pulse Oximetry 95 97 Oxygen Delivery Nasal Cannula Oxygen Flow Rate 3 04/27/24 06:00 04/27/24 08:50 04/27/24 09:22 Temperature 98.2 F Pulse Rate 80 Respiratory Rate 18 Blood Pressure 170/71 H Pulse Oximetry 98 93 Oxygen Delivery Room Air Room Air Oxygen Flow Rate 04/27/24 14:00 Temperature 98.2 F Pulse Rate 78 Respiratory Rate 20 Blood Pressure 150/77 H Pulse Oximetry 92 Oxygen Delivery Oxygen Flow Rate Intake/Output Intake/Output: Intake & Output 04/24/24 04/25/24 04/26/24 04/27/24 23:59 23:59 23:59 23:59 Intake Total 3997.0 6187.5 3840 1450 Output Total 314 279 4478 3000 Balance 3897.0 5437.5 2390 -1550 Meds/Results Medications: Active Medications Generic Name Dose Route Start Last Admin Trade Name Freq PRN Reason Stop Dose Admin Acetaminophen 650 mg 04/23/24 18:24 Acetaminophen 325 Mg Tablet PO Q4H PRN Mild Pain (1-3) or Fever Albuterol 1 puff 04/23/24 20:53 Albuterol Sulfate (*Sp) Aerosol 1 Puff INHALATION DAILY PRN sob/wheezing Amlodipine Besylate 10 mg 04/24/24 09:00 04/27/24 09:21 Amlodipine Besylate 10 Mg Tablet PO 10 mg DAILY KELIN Administration Atorvastatin Calcium 10 mg 04/23/24 21:00 04/26/24 21:11 Atorvastatin 10 Mg Tablet PO 10 mg HS KELIN Administration Baclofen 10 mg 04/24/24 09:00 04/27/24 13:31 Baclofen 10 Mg Tablet PO 10 mg TID KELIN Administration Bisacodyl 10 mg
[2024-04-27] MEDS: SODIUM CHLORIDE 1 GM TABLET PO (16:59)
[2024-04-27] MEDS: SPIRONOLACTONE 25 MG TABLET PO (16:59)
[2024-04-27] MEDS: ATORVASTATIN 10 MG TABLET PO (20:23)
[2024-04-27 20:24] VITALS: PULSE 95
[2024-04-27 20:26] VITALS: BP 171/73; PULSE 95; RESP 18; TEMP 37.2; O2SAT 92
[2024-04-28] VITALS (9 sets, daily range): BP systolic 158–167; BP diastolic 61–76; PULSE 74–96; RESP 18–20; TEMP 36.6–37.8; O2SAT 95–99
[2024-04-28] MEDS: ACETAMINOPHEN 325 MG TABLET 650 MG PO (03:27)
[2024-04-28] MEDS: LORazepam (*CRX) 1 MG TABLET PO ×3 (03:27→21:04)
[2024-04-28 06:47] LABS: Hematocrit 34.3 % (37.0-47.0); Hemoglobin 11.8 g/dL (12.0-15.0); Immature Platelet Fraction Pct 4.5 % (0.9-11.2); Mean Corpuscular HGB Conc 34.4 g/dl (32-36); Mean Corpuscular Hemoglobin 34.2 pg (26-34); Mean Corpuscular Volume 99.4 fl (80-100); Mean Platelet Volume 10.7 fl (7.4-10.4); Platelet Count Result 173 k/mm3 (150-375); Red Blood Count 3.45 M/mm3 (4.2-5.4); White Blood Count 9.7 K/mm3 (4.5-10.0)
[2024-04-28 07:01] LABS: Alanine Aminotransferase 44 U/L (6-35); Albumin Level 3.4 g/dL (3.5-5.1); Alkaline Phosphatase 90 U/L (38-126); Anion Gap 6 mmol/L (4-12); Aspartate Amino Transferase 44 U/L (14-36); Bilirubin,Total 0.4 mg/dL (0.2-1.3); Blood Urea Nitrogen 9 mg/dL (7-17); Calcium 7.5 mg/dL (8.4-10.2); Carbon Dioxide 29 mmol/L (22-30); Chloride 87 mmol/L (98-107); Estimated CRCL calculation 107 ml/min; Estimated Glomerular Filt Rate > 60; Glucose 102 mg/dL (65-110); Potassium 3.8 mmol/L (3.4-5.0); Sodium 122 mmol/L (137-145)
[2024-04-28] MEDS: FLUTICASONE/SALMETEROL 115-21 MCG INHALER 1 PUFF 2 PUFF INHALATION ×2 (07:14→20:11)
[2024-04-28 07:41] LABS: Band Neutrophils Percent 5 % (0-6); Eosinophils Absolute Manual 0.19 K/mm3 (0.02-0.50); Eosinophils Percent Manual 2 % (0-4); Lymphocytes Absolute Manual 2.61 K/mm3 (1.1-4.5); Lymphocytes Percent Manual 27 % (18-44); Monocytes Absolute Manual 0.87 K/mm3 (0.1-0.90); Monocytes Percent Manual 9 % (3-9); Neutrophils Absolute Manual 6.01 K/mm3 (1.7-7.2); Neutrophils Percent Manual 57 % (46-73); Total Cells Counted 100
[2024-04-28 07:42] LABS: Large Platelets Present; Platelet Estimate Adequate (Adequate); Schistocytes None Seen
[2024-04-28] MEDS: PREGABALIN (*CRX) 75 MG CAPSULE 150 MG PO ×2 (09:50→21:04)
[2024-04-28] MEDS: METOPROLOL TARTRATE 50 MG TAB 100 MG PO ×2 (09:50→21:04)
[2024-04-28] MEDS: PANTOPRAZOLE 40 MG TABLET PO (09:50)
[2024-04-28] MEDS: oxyCODONE HCL (*CRX) 5 MG TAB IR PO ×4 (09:50→22:27)
[2024-04-28] MEDS: BACLOFEN 10 MG TABLET PO ×3 (09:50→17:55)
[2024-04-28] MEDS: amLODIPine BESYLATE 10 MG TABLET PO (09:51)
[2024-04-28] MEDS: SPIRONOLACTONE 25 MG TABLET PO (09:51)
[2024-04-28] MEDS: LOSARTAN POTASSIUM 100 MG TABLET PO (09:51)
[2024-04-28] MEDS: FAMCICLOVIR 250 MG TABLET PO ×2 (09:51→21:04)
[2024-04-28] MEDS: CHOLECALCIFEROL 400 UNITS TABLET (VIT D) PO (09:51)
[2024-04-28] MEDS: VITAMIN E 400 UNIT CAPSULE 800 UNIT PO (09:51)
[2024-04-28] MEDS: MEMANTINE 5 MG TABLET PO ×2 (09:51→17:55)
[2024-04-28] MEDS: DOCUSATE SODIUM 100 MG CAPSULE PO (09:51)
[2024-04-28] MEDS: CEPHALEXIN 500 MG CAPSULE PO ×2 (09:51→21:04)
[2024-04-28] MEDS: VITAMIN B COMPLEX CAPSULE 1 CAP PO ×2 (09:51→17:55)
[2024-04-28] MEDS: SODIUM CHLORIDE 1 GM TABLET PO ×2 (09:51→17:55)
[2024-04-28] MEDS: PRIMIDONE 50 MG TABLET 200 MG PO ×2 (09:51→21:02)
[2024-04-28] MEDS: FLUTICASONE PROPIONATE 0.05% NA SPR 16 GM BTL (*BKC) 2 SPRAY NASAL (09:52)
--- NOTE | 2024-04-28 09:59 | WPDGICN ---
Assessment and Plan Assessment and plan (1) Hematochezia: Code(s): K92.1 - Melena Status: Acute (2) Abnormal digestive system diagnostic imaging: Code(s): R93.3 - Abnormal findings on diagnostic imaging of other parts of digestive tract Status: Acute (3) Diarrhea: Qualifiers: Diarrhea type: presumed infectious Qualified Code(s): R19.7 - Diarrhea, unspecified Code(s): R19.7 - Diarrhea, unspecified Status: Acute (4) Constipation: Qualifiers: Constipation type: chronic idiopathic constipation Qualified Code(s): K59.04 - Chronic idiopathic constipation Code(s): K59.00 - Constipation, unspecified Status: Acute (5) Colitis: Code(s): K52.9 - Noninfective gastroenteritis and colitis, unspecified Status: Acute (6) Gastroesophageal reflux disease: Qualifiers: Esophagitis presence: esophagitis presence not specified Qualified Code(s): K21.9 - Gastro-esophageal reflux disease without esophagitis Code(s): K21.9 - Gastro-esophageal reflux disease without esophagitis Status: Acute (7) Nausea: Code(s): R11.0 - Nausea Status: Acute (8) Dysphagia: Qualifiers: Dysphagia type: esophageal phase Qualified Code(s): R13.19 - Other dysphagia Code(s): R13.10 - Dysphagia, unspecified Status: Acute (9) Hepatic steatosis: Code(s): K76.0 - Fatty (change of) liver, not elsewhere classified Status: Acute (10) Elevated liver transaminase level: Code(s): R74.01 - Elevation of levels of liver transaminase levels Status: Acute (11) Personal history of colon polyps, unspecified: Code(s): Z86.0100 - Personal history of colon polyps, unspecified Status: Acute (12) Chronic anemia: Code(s): D64.9 - Anemia, unspecified Status: Acute (13) Gastroparesis: Code(s): K31.84 - Gastroparesis Status: Acute (14) Hyponatremia: Code(s): E87.1 - Hypo-osmolality and hyponatremia Status: Acute Plan 1. Hematochezia / diarrhea/generalized abdominal pain/anemia /abnormal imaging digestive-colitis /constipation /personal history of colon polyps: Per patient last colonoscopy > 5 year ago and she has a Hx of colon polyps. Family history of colon cancer in maternal grandfather. Dr. Garcia was her previous GI doctor but she has been unable do follow up with him due to illness and being in a jail. CT A/P on 04/24/2024 that showed infectious/inflammatory colitis of the descending and proximal sigmoid colon.Patient states that she had an acute onset of generalized crampy abdominal pain, diarrhea and rectal bleeding that occurred on Wednesday and Wednesday. Diarrhea has resolved and she has returned to her baseline constipation. Per patient after no BM since admission she was given colace, Miralax and had a fleet enema yesterday with some formed and liquid stool and blood per nursing staff. Her abdominal pain has improved but not resolved. Her diarrhea has resolved since admission. At home patients constipation was controlled with Dulcolax nightly and Colace in the morning and PRN Miralax. She has not been on any prescription medications for her constipation. No signs of active GI bleeding at this time and H/H has been relatively stable since March with Hgb 12 and Hct 34. she is currently on ABX for UTI. Patient has requested to transfer her GI care to our office due to her being discharged back to a local jail. chronic constipation likely secondary to narcotic use, Continue current bowel regimen may consider advancing to Amitiza or Motegrity if constipation becomes more frequent or problematic Will plan for outpatient colonoscopy in 6-8 weeks to follow up on inflammation noted on CT Patient instructed to call GI office if diarrhea or bleeding recurs in interim 2. GERD / dysphagia / gastroparesis /nausea: Patient has not had an EGD in over 5 yea
[2024-04-28 12:33] LABS: Anion Gap 7 mmol/L (4-12); Blood Urea Nitrogen 8 mg/dL (7-17); Calcium 7.9 mg/dL (8.4-10.2); Carbon Dioxide 29 mmol/L (22-30); Chloride 85 mmol/L (98-107); Estimated CRCL calculation 88 ml/min; Estimated Glomerular Filt Rate > 60; Glucose 166 mg/dL (65-110); Sodium 121 mmol/L (137-145)
[2024-04-28] MEDS: ONDANSETRON INJ 4 MG/2 ML VIAL IV PUSH (13:55)
--- NOTE | 2024-04-28 14:05 | PM.IMPN ---
Progress Note: A&P Assessment and Plan (1) Fall from toilet seat: Code(s): W18.11XA - Fall from or off toilet without subsequent striking against object, initial encounter Status: Acute (2) Tachycardia: Code(s): R00.0 - Tachycardia, unspecified Status: Acute (3) Asthma: Code(s): J45.909 - Unspecified asthma, uncomplicated Status: Acute (4) Chronic anemia: Code(s): D64.9 - Anemia, unspecified Status: Acute Plan UTi Urine culture positive for Klebsiella pneumoniae changed Rocephin to Keflex to complete total of 7 days Blood culture positive for S epidermidis in one bottle which is a contaminant GI bleed Patient had bloody bowel movement Hemoglobin 11.8. GI evaluated and admitted outpatient colonoscopy in 6-8 weeks. Monitor. Hyponatremia this morning down from 132 on admission urine studies ordered, hold spironolactone Fluid restriction Nephrology consulted. Fall No fractures on imaging PT/OT consulted Continue home bronchodilators, continue other home meds DVT prophylaxis hold Lovenox Discharge to SNF tomorrow Subjective Date/time seen: 04/28/24 14:05 Interval history: patient comfortable at bedside GI evaluated and recommended outpatient eval Hyponatremia worsening, stopped spironolactone and placed on fluid restriction and nephrology consulted awaiting urine studies Review of Systems Review of Systems: 12 systems were reviewed and are negative except for as per HPI. Exam Narrative: General: Mildly ill-appearing female in the semi-Siegel position in bed. Weight: 90.9 kg. BMI: 37.9. HEENT: PERRL, EOMI. Sclera anicteric. Tacky mucous membranes. Neck: Supple. No midline vertebral tenderness. Respiratory: Respirations are nonlabored. Lung sounds are a bit diminished with faint expiratory wheezing. Cardiovascular: Tachycardic with normal S1-S2. Gastrointestinal: Abdomen is soft and nondistended with positive bowel sounds. She is tender to palpation over the left side of the abdomen. No guarding or rebound tenderness. Equivocal left-sided CVA tenderness. Skin: Warm and dry. No rash or lesions on limited exam. Extremities: No cyanosis, clubbing, or right lower extremity edema. Status post left [id number] amputation. Neurological: Alert. Cranial nerves 2-12 are grossly intact. Generally weak without gross focal deficits. Psychiatric: Cooperative with appropriate mood and flat affect. Objective Data Vital Signs Vital Signs: Vital Signs - 24 hr 04/27/24 20:24 04/27/24 20:26 04/28/24 03:08 Temperature 99.0 F 100.1 F H Pulse Rate 95 95 Respiratory Rate 18 Blood Pressure 171/73 H Pulse Oximetry 92 Oxygen Delivery Oxygen Flow Rate 04/28/24 03:27 04/28/24 04:27 04/28/24 05:14 Temperature 100.1 F H 98.3 F 98.3 F Pulse Rate 77 Respiratory Rate 20 Blood Pressure 167/76 H Pulse Oximetry 99 Oxygen Delivery Oxygen Flow Rate 04/28/24 07:15 04/28/24 07:15 04/28/24 09:50 Temperature Pulse Rate 82 82 74 Respiratory Rate 18 18 Blood Pressure Pulse Oximetry 98 Oxygen Delivery Nasal Cannula Oxygen Flow Rate 2 04/28/24 09:55 Temperature Pulse Rate Respiratory Rate Blood Pressure Pulse Oximetry Oxygen Delivery Room Air Oxygen Flow Rate Intake/Output Intake/Output: Intake & Output 04/25/24 04/26/24 04/27/24 04/28/24 23:59 23:59 23:59 23:59 Intake Total 6187.5 3840 2150 1600 Output Total 750 1450 3450 1850 Balance 5437.5 4060 -1438 -121 Meds/Results Medications: Active Medications Generic Name Dose Route Start Last Admin Trade Name Freq PRN Reason Stop Dose Admin Acetaminophen 650 mg 04/23/24 18:24 04/28/24 03:27 Acetaminophen 325 Mg Tablet PO 650 mg Q4H PRN Administration Mild Pain (1-3) or Fever Albuterol 1 puff 04/23/24 20:53 Albuterol Sulfate (*Sp) Aerosol 1 Puff INHALATION DAILY
--- NOTE | 2024-04-28 16:25 | PM.CNNEP ---
Assessment and Plan Assessment and plan (1) Hyponatremia: Code(s): E87.1 - Hypo-osmolality and hyponatremia Status: Acute Assessment and Plan: acute on chronic present as far back as 2028 fluctuates to extremes -- anywhere from 122 - 136mmol/L risk factors for low sodium: chronic respiratory failure asthma SANTI chronic pain narcotics PPI use diuretic use already started on fluid restriction initiated on salt tabs check TSH, cortisol, SPEP, UPEP and urine studies follow trend of repeat sodium levels (2) Urinary tract infection: Code(s): N39.0 - Urinary tract infection, site not specified Status: Acute Assessment and Plan: admission UA suggestive urine culture with Klebsiella on antibiotics (3) Colitis: Code(s): K52.9 - Noninfective gastroenteritis and colitis, unspecified Status: Acute Assessment and Plan: as suggested by CT imaging complicated by hematochezia (but this has resolved) H/H stable GI following (4) Status post fall: Code(s): Z91.81 - History of falling Status: Acute Assessment and Plan: as note by admission history no fracture or acute injuries PT/OT as tolerated I will continue to follow the patient with you while she remains hospitalized and make further recommendations as deemed necessary. Thank you for allowing me to participate in the care of this patient. History of Present Illness Reason for Consult Consult date: 04/28/24 Reason for consult: hyponatremia (acute on chronic) Chief Complaint Chief complaint: Diarrhea, Urinary tract infection, Hyponatremia, W History of Present Illness Narrative: The patient is a 73-year-old female with a past medical history as outlined below who presented to [facility] Emergency Room via EMS due to complaints of nausea and diarrhea. The patient reports that she has had numerous bouts of watery brown diarrhea over the past 2-3 days if not longer. On the day of admission, the patient reports that along with the diarrhea she was having issues with urinary incontinence which is unusual symptom for her. It was around that same time that she had been feeling more weak and fatigued in general. She apparently lost her balance while on the toilet and fell back striking her head and low back on the bathtub but did not lose consciousness. Following the fall, he she used her Life Alert to call for help and was subsequently brought in to the emergency room for assessment. Her major complaint at the time of EMS arrival was that of pain in her mid low back as well as the previously mentioned generalized fatigue/ malaise. She gave no reported history of fevers, chills, abdominal pain, dysuria, hematuria, dizziness, lightheadedness, chest pain, shortness of breath, melena, or hematochezia. Workup and evaluation emergency room demonstrated the patient to be hemodynamically stable and in no acute distress. Routine blood tests were significant for white blood cell count of 13.3, hemoglobin 12.4, platelet count of 144, normal renal function and a sodium of 127. Her urinalysis was significant for 1+ leukocyte esterase, nitrates, 11-20 white blood cells, and 4+ bacteria. Viral testing for all influenza/ RSV/ COVID were negative and her chest x-ray was otherwise negative. Given her symptoms, she was given a L of normal saline and subsequently started on antibiotics for a presumed urinary tract infection after appropriate cultures were obtained. She was subsequently admitted to the hospital for further evaluation therapy. Since her admission, she has been slowly improving but has been noted in the last several days that her sodium level has been precipitously dropping. On admission, her sodium level is 127 and Initially increased to 132 but then has has been slowly declining to the point where it is now 122 by her most recent labs. Renal consultation was reque
[2024-04-28 16:34] LABS: Add Urine Microscopic? YES; Appearance Urine Clear (Clear); Bacteria Urine None Seen /hpf; Bilirubin Urine Negative (Negative); Blood Urine Negative (Negative); Color Urine Yellow (Yellow); Glucose Urine UA Negative (Negative); Ketones Urine Negative (Negative); Leukocyte Esterase Ur Negative LEU/UL (Negative); Nitrate Urine Negative (Negative); Non Pathogenic Casts 0-2; Protein Urine 1+ mg/dL (Negative); RBC Urine 0-2 /hpf (0-2); Specific Grav Ur 1.008 (1.001-1.035); Squamous Epithelial Cell Urine None Seen /hpf (Few); WBC Urine 0-5 /hpf (0-3)
[2024-04-28 17:10] LABS: Creatinine Urine 24.5 mg/dL
[2024-04-28 17:16] LABS: Creatinine Urine 24.1 mg/dL; Total Protein Urine Random 49 mg/dL; Total Protein Urine Random 50 mg/dL; Ur Ttl Prot Creatinine Ratio 2.03 mg/mg (0-0.20); Urea Random Urine 271 MG/DL
[2024-04-28 17:17] LABS: Sodium Urine Random 88 meq/L
[2024-04-28 17:17] LABS: Sodium Urine Random 88 meq/L
[2024-04-28] MEDS: ATORVASTATIN 10 MG TABLET PO (21:04)
[2024-04-29] MEDS: LORazepam (*CRX) 1 MG TABLET PO ×3 (02:54→21:32)
[2024-04-29] MEDS: oxyCODONE HCL (*CRX) 5 MG TAB IR PO ×5 (02:54→21:31)
[2024-04-29 06:00] VITALS: BP 157/74; PULSE 78; RESP 18; TEMP 36.4; O2SAT 98
[2024-04-29 06:30] LABS: Hematocrit 31.9 % (37.0-47.0); Hemoglobin 11.4 g/dL (12.0-15.0); Mean Corpuscular HGB Conc 35.7 g/dl (32-36); Mean Corpuscular Hemoglobin 33.3 pg (26-34); Mean Corpuscular Volume 93.3 fl (80-100); Mean Platelet Volume 9.7 fl (7.4-10.4); Platelet Count Result 197 k/mm3 (150-375); Red Blood Count 3.42 M/mm3 (4.2-5.4); Red Cell Distribution Width 11.8 % (11.5-14.5); White Blood Count 11.6 K/mm3 (4.5-10.0)
[2024-04-29 06:41] LABS: Alanine Aminotransferase 52 U/L (6-35); Albumin Level 3.5 g/dL (3.5-5.1); Alkaline Phosphatase 93 U/L (38-126); Anion Gap 6 mmol/L (4-12); Aspartate Amino Transferase 43 U/L (14-36); Bilirubin,Total 0.3 mg/dL (0.2-1.3); Blood Urea Nitrogen 11 mg/dL (7-17); Calcium 7.8 mg/dL (8.4-10.2); Carbon Dioxide 28 mmol/L (22-30); Chloride 88 mmol/L (98-107); Estimated CRCL calculation 88 ml/min; Estimated Glomerular Filt Rate > 60; Glucose 96 mg/dL (65-110); Magnesium 1.9 mg/dL (1.6-2.3); Potassium 3.7 mmol/L (3.4-5.0); Sodium 122 mmol/L (137-145)
[2024-04-29 07:05] LABS: Band Neutrophils Percent 8 % (0-6); Eosinophils Absolute Manual 0.34 K/mm3 (0.02-0.50); Eosinophils Percent Manual 3 % (0-4); Lymphocytes Absolute Manual 2.66 K/mm3 (1.1-4.5); Metamyelocytes Percent 1 %; Monocytes Absolute Manual 0.92 K/mm3 (0.1-0.90); Monocytes Percent Manual 8 % (3-9); Neutrophils Absolute Manual 7.54 K/mm3 (1.7-7.2); Neutrophils Percent Manual 57 % (46-73); Total Cells Counted 100
[2024-04-29 07:07] LABS: Anisocytosis 1+; Platelet Estimate Adequate (Adequate); Schistocytes None Seen
[2024-04-29 07:12] LABS: Thyroid Stimulating Hormone Reflex 0.297 uIU/mL (0.465-4.68)
[2024-04-29 07:32] VITALS: O2SAT 97
[2024-04-29] MEDS: FLUTICASONE/SALMETEROL 115-21 MCG INHALER 1 PUFF 2 PUFF INHALATION ×2 (07:32→20:02)
[2024-04-29 08:17] LABS: Free T4 Free Thyroxine Reflex 0.82 ng/dL (0.78-2.19)
[2024-04-29 08:59] LABS: Total Triiodothyronine (T3) 0.76 NG/ML (0.97-1.69)
[2024-04-29] MEDS: SODIUM CHLORIDE 1 GM TABLET PO ×2 (09:24→17:17)
[2024-04-29] MEDS: CEPHALEXIN 500 MG CAPSULE PO ×2 (09:25→20:41)
[2024-04-29 09:29] VITALS: PULSE 96
[2024-04-29] MEDS: METOPROLOL TARTRATE 50 MG TAB 100 MG PO ×2 (09:29→20:42)
[2024-04-29] MEDS: BACLOFEN 10 MG TABLET PO ×3 (09:31→20:42)
[2024-04-29] MEDS: PRIMIDONE 50 MG TABLET 200 MG PO ×2 (09:31→20:41)
[2024-04-29] MEDS: PANTOPRAZOLE 40 MG TABLET PO (09:32)
[2024-04-29] MEDS: LOSARTAN POTASSIUM 100 MG TABLET PO (09:32)
[2024-04-29] MEDS: MAGNESIUM 13.5 MG TABLET (250 MG MAG GLUCONATE) PO (09:32)
[2024-04-29] MEDS: DOCUSATE SODIUM 100 MG CAPSULE PO (09:32)
[2024-04-29] MEDS: VITAMIN E 400 UNIT CAPSULE 800 UNIT PO ×2 (09:33→09:55)
--- NOTE | 2024-04-29 09:44 | PC.NURSE ---
While administering medications, student nurse accidentally dropped pills on the floor after scanning and putting pills in the cup. Nurse Ana Paula informed of incident. Patient also aware. This nursing service administrator removed prior administration of pills that fell on the floor from the MAR. Medications removed from the Pyxis.
[2024-04-29] MEDS: PREGABALIN (*CRX) 75 MG CAPSULE 150 MG PO ×2 (09:53→20:41)
[2024-04-29] MEDS: VITAMIN B COMPLEX CAPSULE 1 CAP PO ×2 (09:53→17:17)
[2024-04-29] MEDS: FAMCICLOVIR 250 MG TABLET PO ×2 (09:54→20:42)
[2024-04-29] MEDS: CHOLECALCIFEROL 400 UNITS TABLET (VIT D) PO (09:54)
[2024-04-29] MEDS: amLODIPine BESYLATE 10 MG TABLET PO (09:54)
[2024-04-29] MEDS: MEMANTINE 5 MG TABLET PO ×2 (09:54→17:17)
--- NOTE | 2024-04-29 10:05 | PM.IMPN ---
Progress Note: A&P Assessment and Plan (1) Fall from toilet seat: Code(s): W18.11XA - Fall from or off toilet without subsequent striking against object, initial encounter Status: Acute (2) Tachycardia: Code(s): R00.0 - Tachycardia, unspecified Status: Acute (3) Asthma: Code(s): J45.909 - Unspecified asthma, uncomplicated Status: Acute (4) Chronic anemia: Code(s): D64.9 - Anemia, unspecified Status: Acute Plan UTI Urine culture positive for Klebsiella pneumoniae changed Rocephin to Keflex to complete total of 7 days Blood culture positive for S epidermidis in one bottle which is a contaminant GI bleed Patient had bloody bowel movement Hemoglobin 11.8. GI evaluated and admitted outpatient colonoscopy in 6-8 weeks. Monitor. Hyponatremia sodium 122 this morning down from 132 on admission Urine sodium 88, others pending Fluid restriction Nephrology following Fall No fractures on imaging PT/OT consulted Continue home bronchodilators, continue other home meds DVT prophylaxis hold Lovenox Discharge to SNF tomorrow Subjective Date/time seen: 04/29/24 10:05 Interval history: Patient comfortable at bedside, Sodium 122 this morning still on fluid restriction and nephrolpgy on board Review of Systems Review of Systems: 12 systems were reviewed and are negative except for as per HPI. Exam Narrative: General: Mildly ill-appearing female in the semi-Siegel position in bed. Weight: 90.9 kg. BMI: 37.9. HEENT: PERRL, EOMI. Sclera anicteric. Tacky mucous membranes. Neck: Supple. No midline vertebral tenderness. Respiratory: Respirations are nonlabored. Lung sounds are a bit diminished with faint expiratory wheezing. Cardiovascular: Tachycardic with normal S1-S2. Gastrointestinal: Abdomen is soft and nondistended with positive bowel sounds. She is tender to palpation over the left side of the abdomen. No guarding or rebound tenderness. Equivocal left-sided CVA tenderness. Skin: Warm and dry. No rash or lesions on limited exam. Extremities: No cyanosis, clubbing, or right lower extremity edema. Status post left [id number]-ety-[id number] amputation. Neurological: Alert. Cranial nerves 2-12 are grossly intact. Generally weak without gross focal deficits. Psychiatric: Cooperative with appropriate mood and flat affect. Objective Data Vital Signs Vital Signs: Vital Signs - 24 hr 04/28/24 14:00 04/28/24 20:11 04/28/24 22:00 Temperature 98.8 F 98 F Pulse Rate 90 95 96 Respiratory Rate 18 18 Blood Pressure 158/71 H 166/61 H Pulse Oximetry 95 96 99 Oxygen Delivery Nasal Cannula Oxygen Flow Rate 4 04/29/24 06:00 04/29/24 07:32 04/29/24 09:29 Temperature 97.6 F Pulse Rate 78 96 Respiratory Rate 18 Blood Pressure 157/74 H Pulse Oximetry 98 97 Oxygen Delivery Room Air Oxygen Flow Rate Intake/Output Intake/Output: Intake & Output 04/26/24 04/27/24 04/28/24 04/29/24 23:59 23:59 23:59 23:59 Intake Total 3840 2150 1960 240 Output Total 1450 3450 2650 940 Balance 2893 -1401 -653 -823 Meds/Results Medications: Active Medications Generic Name Dose Route Start Last Admin Trade Name Freq PRN Reason Stop Dose Admin Acetaminophen 650 mg 04/23/24 18:24 04/28/24 03:27 Acetaminophen 325 Mg Tablet PO 650 mg Q4H PRN Administration Mild Pain (1-3) or Fever Albuterol 1 puff 04/23/24 20:53 Albuterol Sulfate (*Sp) Aerosol 1 Puff INHALATION DAILY PRN sob/wheezing Amlodipine Besylate 10 mg 04/24/24 09:00 04/29/24 09:54 Amlodipine Besylate 10 Mg Tablet PO 10 mg DAILY KELIN Administration Atorvastatin Calcium 10 mg 04/23/24 21:00 04/28/24 21:04 Atorvastatin 10 Mg Tablet PO 10 mg HS KELIN Administration Baclofen 10 mg 04/24/24 09:00 04/29/24 09:31 Baclofen 10 Mg Tablet PO 10 mg TID KELIN Administration Bisacodyl 10 mg 04/23/24 20:53 Bis
[2024-04-29] MEDS: FLUTICASONE PROPIONATE 0.05% NA SPR 16 GM BTL (*BKC) 2 SPRAY NASAL (11:08)
[2024-04-29] MEDS: ONDANSETRON INJ 4 MG/2 ML VIAL IV PUSH ×2 (12:20→17:17)
--- NOTE | 2024-04-29 12:54 | PM.PNNEP ---
Progress Note: A&P Assessment and Plan (1) Hyponatremia: Code(s): E87.1 - Hypo-osmolality and hyponatremia Status: Acute Assessment and Plan: stable acute on chronic present as far back as 2028 fluctuates to extremes -- anywhere from 122 - 136mmol/L risk factors for low sodium: chronic respiratory failure asthma SANTI chronic pain narcotics PPI use diuretic use on fluid restriction initiated on salt tabs evaluation to date noted: TSH and T3 low, T4 okay cortisol okay urine electrolytes non-prerenal CXR okay SPEP/UPEP and serum/urine osmo pending if sodium fails to improve, consider adding low dose lasix follow trend of repeat sodium levels (2) Urinary tract infection: Code(s): N39.0 - Urinary tract infection, site not specified Status: Acute Assessment and Plan: admission UA suggestive urine culture with Klebsiella on antibiotics (3) Colitis: Code(s): K52.9 - Noninfective gastroenteritis and colitis, unspecified Status: Acute Assessment and Plan: as suggested by CT imaging complicated by hematochezia (but this has resolved) H/H stable GI following (4) Status post fall: Code(s): Z91.81 - History of falling Status: Acute Assessment and Plan: as note by admission history no fracture or acute injuries PT/OT as tolerated Will continue to follow. Subjective Date/time seen: 04/29/24 12:54 Interval history: Follow-up for acute on chronic hyponatremia. Sodium remains unchanged at this time but no apparent distress noted in-spite of this electrolytes abnormality; major complaint is that of generalized fatigue and weakness; reports has no real appetite at this time as well; no other issues/events overnight or earlier this morning. Exam Narrative: General: elderly female in NAD Heart: normal S1 and S2; no rub Lungs: diminished at bases Abdomen: soft, nontender, nondistended, positive bowel sounds Extremities: no cyanosis or clubbing; no edema Skin: warm and dry Objective Data Vital Signs Vital Signs: Vital Signs Temp Pulse Resp BP Pulse Ox O2 Del Method O2 Flow Rate 04/29/24 09:29 96 04/29/24 07:32 97 Room Air 04/29/24 06:00 97.6 F 78 18 157/74 H 98 04/28/24 22:00 98 F 96 18 166/61 H 99 04/28/24 20:11 95 96 Nasal Cannula 4 Intake/Output Intake/Output: Intake & Output 04/26/24 04/27/24 04/28/24 04/29/24 23:59 23:59 23:59 23:59 Intake Total 3840 2150 1960 970 Output Total 1450 3450 2650 940 Balance 3409 -2679 -695 30 Meds/Results Medications: Active Medications Generic Name Dose Route Start Last Admin Trade Name Freq PRN Reason Stop Dose Admin Acetaminophen 650 mg 04/23/24 18:24 04/28/24 03:27 Acetaminophen 325 Mg Tablet PO 650 mg Q4H PRN Administration Mild Pain (1-3) or Fever Albuterol 1 puff 04/23/24 20:53 Albuterol Sulfate (*Sp) Aerosol 1 Puff INHALATION DAILY PRN sob/wheezing Amlodipine Besylate 10 mg 04/24/24 09:00 04/29/24 09:54 Amlodipine Besylate 10 Mg Tablet PO 10 mg DAILY KELIN Administration Atorvastatin Calcium 10 mg 04/23/24 21:00 04/28/24 21:04 Atorvastatin 10 Mg Tablet PO 10 mg HS KELIN Administration Baclofen 10 mg 04/24/24 09:00 04/29/24 09:31 Baclofen 10 Mg Tablet PO 10 mg TID KELIN Administration Bisacodyl 10 mg 04/23/24 20:53 Bisacodyl 5 Mg Tablet Ec PO HS PRN Constipation Cephalexin HCl 500 mg 04/26/24 18:00 04/29/24 09:25 Cephalexin 500 Mg Capsule PO 04/30/24 09:01 500 mg Q12HR KELIN Administration Docusate Sodium 100 mg 04/27/24 09:00 04/29/24 09:32 Docusate Sodium 100 Mg Capsule PO 100 mg QAM KELIN Administration Enoxaparin Sodium 40 mg 04/26/24 09:00 04/27/24 09:22 Enoxaparin 40 Mg/0.4 Ml Syringe SUB-Q 40 mg DAILY KELIN Administration Famciclovir 250 mg 0
--- NOTE | 2024-04-29 12:54 | P.PNNP_ITS ---
Progress Note: A&P Assessment and Plan (1) Hyponatremia: Code(s): E87.1 - Hypo-osmolality and hyponatremia Status: Acute Assessment and Plan: * stable * acute on chronic * present as far back as 2028 * fluctuates to extremes -- anywhere from 122 - 136mmol/L * risk factors for low sodium: * chronic respiratory failure * asthma * SANTI * chronic pain * narcotics * PPI use * diuretic use * on fluid restriction * initiated on salt tabs * evaluation to date noted: * TSH and T3 low, T4 okay * cortisol okay * urine electrolytes non-prerenal * CXR okay * SPEP/UPEP and serum/urine osmo pending * if sodium fails to improve, consider adding low dose lasix * follow trend of repeat sodium levels (2) Urinary tract infection: Code(s): N39.0 - Urinary tract infection, site not specified Status: Acute Assessment and Plan: * admission UA suggestive * urine culture with Klebsiella * on antibiotics (3) Colitis: Code(s): K52.9 - Noninfective gastroenteritis and colitis, unspecified Status: Acute Assessment and Plan: * as suggested by CT imaging * complicated by hematochezia (but this has resolved) * H/H stable * GI following (4) Status post fall: Code(s): Z91.81 - History of falling Status: Acute Assessment and Plan: * as note by admission history * no fracture or acute injuries * PT/OT as tolerated Will continue to follow. Subjective Date/time seen: 04/29/24 12:54 Interval history: Follow-up for acute on chronic hyponatremia. Sodium remains unchanged at this time but no apparent distress noted in-spite of this electrolytes abnormality; major complaint is that of generalized fatigue and weakness; reports has no real appetite at this time as well; no other issues/events overnight or earlier this morning. Exam Narrative: General: elderly female in NAD Heart: normal S1 and S2; no rub Lungs: diminished at bases Abdomen: soft, nontender, nondistended, positive bowel sounds Extremities: no cyanosis or clubbing; no edema Skin: warm and dry Objective Data Vital Signs Vital Signs: Vital Signs Temp Pulse Resp BP Pulse Ox O2 Del Method O2 Flow Rate 04/29/24 09:29 96 04/29/24 07:32 97 Room Air 04/29/24 06:00 97.6 F 78 18 157/74 H 98 04/28/24 22:00 98 F 96 18 166/61 H 99 04/28/24 20:11 95 96 Nasal Cannula 4 Intake/Output Intake/Output: Intake & Output 04/26/24 04/27/24 04/28/24 04/29/24 23:59 23:59 23:59 23:59 Intake Total 3840 2150 1960 970 Output Total 1450 3450 2650 940 Balance 4815 -8812 -775 30 Meds/Results Medications: Active Medications Generic Name Dose Route Start Last Admin Trade Name Freq PRN Reason Stop Dose Admin Acetaminophen 650 mg 04/23/24 18:24 04/28/24 03:27 Acetaminophen 325 Mg Tablet PO 650 mg Q4H PRN Administration Mild Pain (1-3) or Fever Albuterol 1 puff 04/23/24 20:53 Albuterol Sulfate (*Sp) Aerosol 1 Puff INHALATION DAILY PRN sob/wheezing Amlodipine Besylate 10 mg 03/28
[2024-04-29 14:00] VITALS: BP 120/40; PULSE 78; RESP 22; TEMP 37; O2SAT 94
[2024-04-29 15:39] LABS: Alanine Aminotransferase 57 U/L (6-35); Alkaline Phosphatase 97 U/L (38-126); Anion Gap 9 mmol/L (4-12); Aspartate Amino Transferase 49 U/L (14-36); Bilirubin,Total 0.2 mg/dL (0.2-1.3); Blood Urea Nitrogen 11 mg/dL (7-17); Carbon Dioxide 26 mmol/L (22-30); Chloride 88 mmol/L (98-107); Estimated CRCL calculation 89 ml/min; Estimated Glomerular Filt Rate > 60; Glucose 150 mg/dL (65-110); Potassium 3.7 mmol/L (3.4-5.0); Sodium 123 mmol/L (137-145)
--- NOTE | 2024-04-29 16:10 | WPDGIPROGNO ---
Progress Note: A&P Assessment and Plan (1) Colitis: Code(s): K52.9 - Noninfective gastroenteritis and colitis, unspecified Status: Acute Assessment and Plan: on abx no diarrhea in fact now constipation plan is colonoscopy in 6-8 weeks (2) Hematochezia: Code(s): K92.1 - Melena Status: Acute Assessment and Plan: resolved (3) Constipation: Qualifiers: Constipation type: chronic idiopathic constipation Qualified Code(s): K59.04 - Chronic idiopathic constipation Code(s): K59.00 - Constipation, unspecified Status: Acute (4) Chronic anemia: Code(s): D64.9 - Anemia, unspecified Status: Acute Assessment and Plan: hgb stable (5) Hyponatremia: Code(s): E87.1 - Hypo-osmolality and hyponatremia Status: Acute Assessment and Plan: by nephrology (6) Urinary tract infection: Code(s): N39.0 - Urinary tract infection, site not specified Status: Acute Assessment and Plan: on abx Subjective Date/time seen: 04/29/24 16:10 Interval history: no BM since admission, no signs of bleeding still feeling tired, not much of appetite Review of Systems Review of Systems: All systems reviewed & are unremarkable except as noted in HPI and below Exam Const: General: no acute distress Other: chronically ill appearing HENMT: Face/Nose/Sinus: Normal nares present Eyes: General: appearance normal, both eyes and all related structures Neck: Neck: supple Resp: Auscultation: clear to auscultation bilaterally Cardio: Rate: regular rate Rhythm: regular rhythm GI: Inspection: non-distended GI Palp: Yes Soft to palpation and No Guarding due to palpation present (GI) Auscultation: normal bowel sounds Other: mild left abdominal discomfort Skin: General skin exam: normal color Neuro: Speech: normal speech Extrem: Other: s/p left leg amputation Psych: Mental Status: mental status grossly normal Objective Data Vital Signs Vital Signs: Vital Signs - 24 hr 04/28/24 20:11 04/28/24 22:00 04/29/24 06:00 Temperature 98 F 97.6 F Pulse Rate 95 96 78 Respiratory Rate 18 18 Blood Pressure 166/61 H 157/74 H Pulse Oximetry 96 99 98 Oxygen Delivery Nasal Cannula Oxygen Flow Rate 4 04/29/24 07:32 04/29/24 09:29 04/29/24 14:00 Temperature 98.6 F Pulse Rate 96 78 Respiratory Rate 22 H Blood Pressure 120/40 L Pulse Oximetry 97 94 Oxygen Delivery Room Air Oxygen Flow Rate Intake/Output Intake/Output: Intake & Output 04/26/24 04/27/24 04/28/24 04/29/24 23:59 23:59 23:59 23:59 Intake Total 3840 2150 1960 970 Output Total 1450 3450 2650 940 Balance 9295 -7822 -659 30 Meds/Results Medications: Active Medications Generic Name Dose Route Start Last Admin Trade Name Freq PRN Reason Stop Dose Admin Acetaminophen 650 mg 04/23/24 18:24 04/28/24 03:27 Acetaminophen 325 Mg Tablet PO 650 mg Q4H PRN Administration Mild Pain (1-3) or Fever Albuterol 1 puff 04/23/24 20:53 Albuterol Sulfate (*Sp) Aerosol 1 Puff INHALATION DAILY PRN sob/wheezing Amlodipine Besylate 10 mg 04/24/24 09:00 04/29/24 09:54 Amlodipine Besylate 10 Mg Tablet PO 10 mg DAILY KELIN Administration Atorvastatin Calcium 10 mg 04/23/24 21:00 04/28/24 21:04 Atorvastatin 10 Mg Tablet PO 10 mg HS KELIN Administration Baclofen 10 mg 04/24/24 09:00 04/29/24 14:48 Baclofen 10 Mg Tablet PO 10 mg TID KELIN Administration Bisacodyl 10 mg 04/23/24 20:53 Bisacodyl 5 Mg Tablet Ec PO HS PRN Constipation Cephalexin HCl 500 mg 04/26/24 18:00 04/29/24 09:25 Cephalexin 500 Mg Capsule PO 04/30/24 09:01 500 mg Q12HR KELIN Administration Docusate Sodium 100 mg 04/27/24 09:00 04/29/24 09:32 Docusate Sodium 100 Mg Capsule PO 100 mg QAM KELIN Administration Enoxaparin Sodium 40 mg 04/26/24 09:00 04/27/24 09:22
[2024-04-29 20:06] VITALS: PULSE 87; RESP 18; O2SAT 91
[2024-04-29] MEDS: ATORVASTATIN 10 MG TABLET PO (20:42)
[2024-04-29 21:20] VITALS: BP 183/69; PULSE 92; RESP 22; TEMP 36.1; O2SAT 100
[2024-04-30] MEDS: oxyCODONE HCL (*CRX) 5 MG TAB IR PO ×4 (03:28→23:47)
[2024-04-30] MEDS: LORazepam (*CRX) 1 MG TABLET PO ×3 (03:29→17:50)
[2024-04-30 05:31] LABS: Hematocrit 32.2 % (37.0-47.0); Hemoglobin 11.3 g/dL (12.0-15.0); Mean Corpuscular HGB Conc 35.1 g/dl (32-36); Mean Corpuscular Hemoglobin 33.1 pg (26-34); Mean Corpuscular Volume 94.4 fl (80-100); Mean Platelet Volume 9.5 fl (7.4-10.4); Platelet Count Result 227 k/mm3 (150-375); Red Blood Count 3.41 M/mm3 (4.2-5.4); Red Cell Distribution Width 11.9 % (11.5-14.5); White Blood Count 12.2 K/mm3 (4.5-10.0)
[2024-04-30 05:35] VITALS: BP 168/67; PULSE 73; RESP 22; TEMP 36.8; O2SAT 100
[2024-04-30 05:42] LABS: Alanine Aminotransferase 53 U/L (6-35); Albumin Level 3.5 g/dL (3.5-5.1); Alkaline Phosphatase 93 U/L (38-126); Anion Gap 7 mmol/L (4-12); Aspartate Amino Transferase 42 U/L (14-36); Bilirubin,Total 0.3 mg/dL (0.2-1.3); Blood Urea Nitrogen 11 mg/dL (7-17); Calcium 7.8 mg/dL (8.4-10.2); Carbon Dioxide 26 mmol/L (22-30); Chloride 89 mmol/L (98-107); Estimated CRCL calculation 88 ml/min; Estimated Glomerular Filt Rate > 60; Glucose 112 mg/dL (65-110); Magnesium 1.8 mg/dL (1.6-2.3); Potassium 3.8 mmol/L (3.4-5.0); Sodium 122 mmol/L (137-145)
[2024-04-30 06:43] LABS: Band Neutrophils Percent 3 % (0-6); Eosinophils Absolute Manual 0.73 K/mm3 (0.02-0.50); Eosinophils Percent Manual 6 % (0-4); Lymphocytes Absolute Manual 2.56 K/mm3 (1.1-4.5); Monocytes Absolute Manual 1.58 K/mm3 (0.1-0.90); Monocytes Percent Manual 13 % (3-9); Neutrophils Absolute Manual 7.32 K/mm3 (1.7-7.2); Neutrophils Percent Manual 57 % (46-73); Platelet Estimate Adequate (Adequate); Total Cells Counted 100
[2024-04-30 06:45] LABS: Schistocytes None Seen
[2024-04-30 07:18] LABS: Creatinine, Random Urine 25 mg/dL (20-275); Total Protein/Creatinine Ratio 1320 mg/g creat (24-184)
[2024-04-30 07:40] VITALS: PULSE 83; RESP 16; O2SAT 93
[2024-04-30] MEDS: FLUTICASONE/SALMETEROL 115-21 MCG INHALER 1 PUFF 2 PUFF INHALATION ×2 (07:40→21:06)
[2024-04-30] MEDS: PRIMIDONE 50 MG TABLET 200 MG PO ×2 (10:08→20:41)
[2024-04-30] MEDS: ONDANSETRON INJ 4 MG/2 ML VIAL IV PUSH ×2 (10:12→17:53)
[2024-04-30 10:13] VITALS: PULSE 83
[2024-04-30] MEDS: amLODIPine BESYLATE 10 MG TABLET PO (10:13)
[2024-04-30] MEDS: LOSARTAN POTASSIUM 100 MG TABLET PO (10:13)
[2024-04-30] MEDS: PANTOPRAZOLE 40 MG TABLET PO (10:13)
[2024-04-30] MEDS: METOPROLOL TARTRATE 50 MG TAB 100 MG PO ×2 (10:13→20:40)
[2024-04-30] MEDS: PREGABALIN (*CRX) 75 MG CAPSULE 150 MG PO ×2 (10:14→20:41)
[2024-04-30] MEDS: MEMANTINE 5 MG TABLET PO ×2 (10:14→17:51)
[2024-04-30] MEDS: DOCUSATE SODIUM 100 MG CAPSULE PO (10:15)
[2024-04-30] MEDS: FUROSEMIDE 10 MG TABLET PO ×2 (10:15→17:50)
[2024-04-30] MEDS: CHOLECALCIFEROL 400 UNITS TABLET (VIT D) PO (10:15)
[2024-04-30] MEDS: FAMCICLOVIR 250 MG TABLET PO ×2 (10:15→20:41)
[2024-04-30] MEDS: VITAMIN B COMPLEX CAPSULE 1 CAP PO ×2 (10:16→17:50)
[2024-04-30] MEDS: CEPHALEXIN 500 MG CAPSULE PO (10:16)
[2024-04-30] MEDS: MAGNESIUM 13.5 MG TABLET (250 MG MAG GLUCONATE) PO (10:16)
[2024-04-30] MEDS: FLUTICASONE PROPIONATE 0.05% NA SPR 16 GM BTL (*BKC) 2 SPRAY NASAL (10:16)
[2024-04-30] MEDS: BACLOFEN 10 MG TABLET PO ×2 (10:16→17:49)
[2024-04-30] MEDS: SODIUM CHLORIDE 1 GM TABLET PO ×2 (10:16→17:50)
--- NOTE | 2024-04-30 10:22 | WPDGIPROGNO ---
Progress Note: A&P Assessment and Plan (1) Colitis: Code(s): K52.9 - Noninfective gastroenteritis and colitis, unspecified Status: Acute Assessment and Plan: on abx no diarrhea in fact now constipation plan is colonoscopy in 6-8 weeks (2) Hematochezia: Code(s): K92.1 - Melena Status: Acute Assessment and Plan: resolved (3) Constipation: Qualifiers: Constipation type: chronic idiopathic constipation Qualified Code(s): K59.04 - Chronic idiopathic constipation Code(s): K59.00 - Constipation, unspecified Status: Acute Assessment and Plan: will give enema (4) Chronic anemia: Code(s): D64.9 - Anemia, unspecified Status: Acute Assessment and Plan: hgb stable (5) Hyponatremia: Code(s): E87.1 - Hypo-osmolality and hyponatremia Status: Acute Assessment and Plan: by nephrology, na 122 (6) Urinary tract infection: Code(s): N39.0 - Urinary tract infection, site not specified Status: Acute Assessment and Plan: on abx Subjective Date/time seen: 04/30/24 10:22 Interval history: still no much of appetite and abdominal discomfort she has not had BM for days, requesting enema Review of Systems Review of Systems: All systems reviewed & are unremarkable except as noted in HPI and below Exam Const: General: no acute distress Other: chronically ill appearing HENMT: Face/Nose/Sinus: Normal nares present Eyes: General: appearance normal, both eyes and all related structures Neck: Neck: supple Resp: Auscultation: clear to auscultation bilaterally Cardio: Rate: regular rate Rhythm: regular rhythm GI: Inspection: non-distended GI Palp: Yes Soft to palpation and No Guarding due to palpation present (GI) Auscultation: normal bowel sounds Other: mild left abdominal discomfort Skin: General skin exam: normal color Neuro: Speech: normal speech Extrem: Other: s/p left leg amputation Psych: Mental Status: mental status grossly normal Objective Data Vital Signs Vital Signs: Vital Signs - 24 hr 04/29/24 14:00 04/29/24 20:06 04/29/24 20:06 Temperature 98.6 F Pulse Rate 78 87 Respiratory Rate 22 H 18 Blood Pressure 120/40 L Pulse Oximetry 94 91 Oxygen Delivery Room Air Fraction of Inspired Oxygen 04/29/24 21:20 04/30/24 05:35 04/30/24 07:40 Temperature 97.0 F L 98.3 F Pulse Rate 92 73 Respiratory Rate 22 H 22 H Blood Pressure 183/69 H 168/67 H Pulse Oximetry 100 100 93 Oxygen Delivery Room Air Fraction of Inspired Oxygen 21 04/30/24 07:40 Temperature Pulse Rate 83 Respiratory Rate 16 Blood Pressure Pulse Oximetry Oxygen Delivery Fraction of Inspired Oxygen Intake/Output Intake/Output: Intake & Output 04/27/24 04/28/24 04/29/24 04/30/24 23:59 23:59 23:59 23:59 Intake Total 2150 1960 1210 250 Output Total 3450 2650 1940 500 Balance -1300 -690 -730 -250 Meds/Results Medications: Active Medications Generic Name Dose Route Start Last Admin Trade Name Freq PRN Reason Stop Dose Admin Acetaminophen 650 mg 04/23/24 18:24 04/28/24 03:27 Acetaminophen 325 Mg Tablet PO 650 mg Q4H PRN Administration Mild Pain (1-3) or Fever Albuterol 1 puff 04/23/24 20:53 Albuterol Sulfate (*Sp) Aerosol 1 Puff INHALATION DAILY PRN sob/wheezing Amlodipine Besylate 10 mg 04/24/24 09:00 04/29/24 09:54 Amlodipine Besylate 10 Mg Tablet PO 10 mg DAILY KELIN Administration Atorvastatin Calcium 10 mg 04/23/24 21:00 04/29/24 20:42 Atorvastatin 10 Mg Tablet PO 10 mg HS KELIN Administration Baclofen 10 mg 04/24/24 09:00 04/29/24 20:42 Baclofen 10 Mg Tablet PO 10 mg TID KELIN Administration Bisacodyl 10 mg 04/23/24 20:53 Bisacodyl 5 Mg Tablet Ec PO HS PRN Constipation Docusate Sodium 100 mg 04/27/24 09:00 04/29/24 09:32 Docusate Sodium 100 Mg Caps
--- NOTE | 2024-04-30 11:48 | PM.PNNEP ---
Progress Note: A&P Assessment and Plan (1) Hyponatremia: Code(s): E87.1 - Hypo-osmolality and hyponatremia Status: Acute Assessment and Plan: stable acute on chronic present as far back as 2028 fluctuates to extremes -- anywhere from 122 - 136mmol/L risk factors for low sodium: chronic respiratory failure asthma SANTI chronic pain narcotics PPI use diuretic use on fluid restriction initiated on salt tabs evaluation to date noted: TSH and T3 low, T4 okay cortisol okay urine electrolytes non-prerenal CXR okay SPEP/UPEP and serum/urine osmo pending will add low dose lasix with salt tabs follow trend of repeat sodium levels (2) Urinary tract infection: Code(s): N39.0 - Urinary tract infection, site not specified Status: Acute Assessment and Plan: admission UA suggestive urine culture with Klebsiella on antibiotics (3) Colitis: Code(s): K52.9 - Noninfective gastroenteritis and colitis, unspecified Status: Acute Assessment and Plan: as suggested by CT imaging complicated by hematochezia (but this has resolved) H/H stable GI following (4) Status post fall: Code(s): Z91.81 - History of falling Status: Acute Assessment and Plan: as note by admission history no fracture or acute injuries PT/OT as tolerated Will continue to follow. Subjective Date/time seen: 04/30/24 11:48 Interval history: Follow-up for acute on chronic hyponatremia. Sodium level remains the same (but no worse) despite interventions to date; still has no real improvement in appetite and major complaint at this time is that of constipation; still feels tired and weak; no acute distress noted. Exam Narrative: General: elderly female in NAD Heart: normal S1 and S2; no rub Lungs: diminished at bases Abdomen: soft, nontender, nondistended, positive bowel sounds Extremities: no cyanosis or clubbing; no edema; s/p left AKA Skin: warm and intact Objective Data Vital Signs Vital Signs: Vital Signs Temp Pulse Resp BP Pulse Ox O2 Del Method FiO2 04/30/24 10:00 Room Air 04/30/24 10:13 83 04/30/24 07:40 83 16 04/30/24 07:40 93 Room Air 21 04/30/24 05:35 98.3 F 73 22 H 168/67 H 100 04/29/24 21:20 97.0 F L 92 22 H 183/69 H 100 04/29/24 20:06 87 18 04/29/24 20:06 91 Room Air 04/29/24 14:00 98.6 F 78 22 H 120/40 L 94 Intake/Output Intake/Output: Intake & Output 04/27/24 04/28/24 04/29/24 04/30/24 23:59 23:59 23:59 23:59 Intake Total 2150 1960 1210 250 Output Total 3450 2650 1940 500 Balance -1300 -690 -730 -250 Meds/Results Medications: Active Medications Generic Name Dose Route Start Last Admin Trade Name Freq PRN Reason Stop Dose Admin Acetaminophen 650 mg 04/23/24 18:24 04/28/24 03:27 Acetaminophen 325 Mg Tablet PO 650 mg Q4H PRN Administration Mild Pain (1-3) or Fever Albuterol 1 puff 04/23/24 20:53 Albuterol Sulfate (*Sp) Aerosol 1 Puff INHALATION DAILY PRN sob/wheezing Amlodipine Besylate 10 mg 04/24/24 09:00 04/30/24 10:13 Amlodipine Besylate 10 Mg Tablet PO 10 mg DAILY KELIN Administration Atorvastatin Calcium 10 mg 04/23/24 21:00 04/29/24 20:42 Atorvastatin 10 Mg Tablet PO 10 mg HS KELIN Administration Baclofen 10 mg 04/24/24 09:00 04/30/24 10:16 Baclofen 10 Mg Tablet PO 10 mg TID KELIN Administration Bisacodyl 10 mg 04/23/24 20:53 Bisacodyl 5 Mg Tablet Ec PO HS PRN Constipation Docusate Sodium 100 mg 04/27/24 09:00 04/30/24 10:15 Docusate Sodium 100 Mg Capsule PO 100 mg QAM KELIN Administration Enoxaparin Sodium 40 mg 04/26/24 09:00 04/27/24 09:22 Enoxaparin 40 Mg/0.4 Ml Syringe SUB-Q 40 mg DAILY KELIN Administration Famciclovir 250 mg 04/23/24 21:00 04/30/24 10:15 Famciclovir 250 Mg Tablet
--- NOTE | 2024-04-30 11:48 | P.PNNP_ITS ---
Progress Note: A&P Assessment and Plan (1) Hyponatremia: Code(s): E87.1 - Hypo-osmolality and hyponatremia Status: Acute Assessment and Plan: * stable * acute on chronic * present as far back as 2028 * fluctuates to extremes -- anywhere from 122 - 136mmol/L * risk factors for low sodium: * chronic respiratory failure * asthma * SANTI * chronic pain * narcotics * PPI use * diuretic use * on fluid restriction * initiated on salt tabs * evaluation to date noted: * TSH and T3 low, T4 okay * cortisol okay * urine electrolytes non-prerenal * CXR okay * SPEP/UPEP and serum/urine osmo pending * will add low dose lasix with salt tabs * follow trend of repeat sodium levels (2) Urinary tract infection: Code(s): N39.0 - Urinary tract infection, site not specified Status: Acute Assessment and Plan: * admission UA suggestive * urine culture with Klebsiella * on antibiotics (3) Colitis: Code(s): K52.9 - Noninfective gastroenteritis and colitis, unspecified Status: Acute Assessment and Plan: * as suggested by CT imaging * complicated by hematochezia (but this has resolved) * H/H stable * GI following (4) Status post fall: Code(s): Z91.81 - History of falling Status: Acute Assessment and Plan: * as note by admission history * no fracture or acute injuries * PT/OT as tolerated Will continue to follow. Subjective Date/time seen: 04/30/24 11:48 Interval history: Follow-up for acute on chronic hyponatremia. Sodium level remains the same (but no worse) despite interventions to date; still has no real improvement in appetite and major complaint at this time is that of constipation; still feels tired and weak; no acute distress noted. Exam Narrative: General: elderly female in NAD Heart: normal S1 and S2; no rub Lungs: diminished at bases Abdomen: soft, nontender, nondistended, positive bowel sounds Extremities: no cyanosis or clubbing; no edema; s/p left AKA Skin: warm and intact Objective Data Vital Signs Vital Signs: Vital Signs Temp Pulse Resp BP Pulse Ox O2 Del Method FiO2 04/30/24 10:00 Room Air 04/30/24 10:13 83 04/30/24 07:40 83 16 04/30/24 07:40 93 Room Air 21 04/30/24 05:35 98.3 F 73 22 H 168/67 H 100 04/29/24 21:20 97.0 F L 92 22 H 183/69 H 100 04/29/24 20:06 87 18 04/29/24 20:06 91 Room Air 04/29/24 14:00 98.6 F 78 22 H 120/40 L 94 Intake/Output Intake/Output: Intake & Output 04/27/24 04/28/24 04/29/24 04/30/24 23:59 23:59 23:59 23:59 Intake Total 2150 1960 1210 250 Output Total 3450 2650 1940 500 Balance -1300 -690 -730 -250 Meds/Results Medications: Active Medications Generic Name Dose Route Start Last Admin Trade Name Freq PRN Reason Stop Dose Admin Acetaminophen 650 mg 04/23/24 18:24 04/28/24 03:27 Acetaminophen 325 Mg Tablet PO 650 mg Q4H PRN Administration Mild Pain (1-3) or Fever Albuterol 1 puff 04/23/24 20:53 Albuterol Sulfate (*Sp)
--- NOTE | 2024-04-30 13:26 | PM.IMPN ---
Progress Note: A&P Assessment and Plan (1) Fall from toilet seat: Code(s): W18.11XA - Fall from or off toilet without subsequent striking against object, initial encounter Status: Acute (2) Tachycardia: Code(s): R00.0 - Tachycardia, unspecified Status: Acute (3) Asthma: Code(s): J45.909 - Unspecified asthma, uncomplicated Status: Acute (4) Chronic anemia: Code(s): D64.9 - Anemia, unspecified Status: Acute Plan UTI Urine culture positive for Klebsiella pneumoniae changed Rocephin to Keflex to complete total of 7 days Blood culture positive for S epidermidis in one bottle which is a contaminant GI bleed Patient had bloody bowel movement Hemoglobin 11.3. GI evaluated and noted outpatient colonoscopy in 6-8 weeks. Monitor. Hyponatremia sodium 122 this morning down from 132 on admission Urine sodium 88, others pending Continue Fluid restriction, increased Sodium tablets to TID and lasix added continue monitoring Nephrology following Fall No fractures on imaging PT/OT consulted Continue home bronchodilators, continue other home meds DVT prophylaxis hold Lovenox Discharge to SNF tomorrow Subjective Date/time seen: 04/30/24 13:26 Interval history: Sodium 122 Lasix added and sodium tablets increased to tid Review of Systems Review of Systems: 12 systems were reviewed and are negative except for as per HPI. Exam Narrative: General: Mildly ill-appearing female in the semi-Siegel position in bed. Weight: 90.9 kg. BMI: 37.9. HEENT: PERRL, EOMI. Sclera anicteric. Tacky mucous membranes. Neck: Supple. No midline vertebral tenderness. Respiratory: Respirations are nonlabored. Lung sounds are a bit diminished with faint expiratory wheezing. Cardiovascular: Tachycardic with normal S1-S2. Gastrointestinal: Abdomen is soft and nondistended with positive bowel sounds. She is tender to palpation over the left side of the abdomen. No guarding or rebound tenderness. Equivocal left-sided CVA tenderness. Skin: Warm and dry. No rash or lesions on limited exam. Extremities: No cyanosis, clubbing, or right lower extremity edema. Status post left [id number] amputation. Neurological: Alert. Cranial nerves 2-12 are grossly intact. Generally weak without gross focal deficits. Psychiatric: Cooperative with appropriate mood and flat affect. Objective Data Vital Signs Vital Signs: Vital Signs - 24 hr 04/29/24 14:00 04/29/24 20:06 04/29/24 20:06 Temperature 98.6 F Pulse Rate 78 87 Respiratory Rate 22 H 18 Blood Pressure 120/40 L Pulse Oximetry 94 91 Oxygen Delivery Room Air Fraction of Inspired Oxygen 04/29/24 21:20 04/30/24 05:35 04/30/24 07:40 Temperature 97.0 F L 98.3 F Pulse Rate 92 73 Respiratory Rate 22 H 22 H Blood Pressure 183/69 H 168/67 H Pulse Oximetry 100 100 93 Oxygen Delivery Room Air Fraction of Inspired Oxygen 21 04/30/24 07:40 04/30/24 10:13 04/30/24 10:00 Temperature Pulse Rate 83 83 Respiratory Rate 16 Blood Pressure Pulse Oximetry Oxygen Delivery Room Air Fraction of Inspired Oxygen Intake/Output Intake/Output: Intake & Output 04/27/24 04/28/24 04/29/24 04/30/24 23:59 23:59 23:59 23:59 Intake Total 2150 1960 1210 250 Output Total 3450 2650 1940 500 Balance -1300 -690 -730 -250 Meds/Results Medications: Active Medications Generic Name Dose Route Start Last Admin Trade Name Freq PRN Reason Stop Dose Admin Acetaminophen 650 mg 04/23/24 18:24 04/28/24 03:27 Acetaminophen 325 Mg Tablet PO 650 mg Q4H PRN Administration Mild Pain (1-3) or Fever Albuterol 1 puff 04/23/24 20:53 Albuterol Sulfate (*Sp) Aerosol 1 Puff INHALATION DAILY PRN sob/wheezing Amlodipine Besylate 10 mg 04/24/24 09:00 04/30/24 10:13 Amlodipine Besylate 10 Mg Tablet PO 10 mg DAILY KELIN Administration Atorvastatin Calciu
[2024-04-30 14:00] VITALS: BP 130/46; PULSE 68; RESP 18; TEMP 36.6; O2SAT 98
[2024-04-30 14:11] LABS: Anion Gap 6 mmol/L (4-12); Blood Urea Nitrogen 10 mg/dL (7-17); Calcium 8.3 mg/dL (8.4-10.2); Carbon Dioxide 29 mmol/L (22-30); Chloride 89 mmol/L (98-107); Estimated CRCL calculation 88 ml/min; Estimated Glomerular Filt Rate > 60; Glucose 99 mg/dL (65-110); Potassium 4.1 mmol/L (3.4-5.0); Sodium 124 mmol/L (137-145)
[2024-04-30] MEDS: LIDOCAINE 5% PATCH 1 PATCH TRANSDERM (18:23)
[2024-04-30] MEDS: ATORVASTATIN 10 MG TABLET PO (20:41)
[2024-04-30 21:01] VITALS: BP 151/56; PULSE 92; RESP 18; TEMP 37.2; O2SAT 96
[2024-04-30 21:09] VITALS: PULSE 91; RESP 18; O2SAT 94
[2024-05-01] MEDS: LORazepam (*CRX) 1 MG TABLET PO ×4 (00:45→20:40)
[2024-05-01 06:00] VITALS: BP 153/61; PULSE 71; RESP 20; TEMP 36.4; O2SAT 100
[2024-05-01 06:55] LABS: Hematocrit 32.8 % (37.0-47.0); Hemoglobin 11.6 g/dL (12.0-15.0); Mean Corpuscular HGB Conc 35.4 g/dl (32-36); Mean Corpuscular Hemoglobin 33.6 pg (26-34); Mean Corpuscular Volume 95.1 fl (80-100); Mean Platelet Volume 9.8 fl (7.4-10.4); Platelet Count Result 249 k/mm3 (150-375); Red Blood Count 3.45 M/mm3 (4.2-5.4)
[2024-05-01 07:04] LABS: Alanine Aminotransferase 55 U/L (6-35); Albumin Level 3.6 g/dL (3.5-5.1); Alkaline Phosphatase 97 U/L (38-126); Anion Gap 6 mmol/L (4-12); Aspartate Amino Transferase 42 U/L (14-36); Bilirubin,Total 0.2 mg/dL (0.2-1.3); Blood Urea Nitrogen 14 mg/dL (7-17); Calcium 8.1 mg/dL (8.4-10.2); Carbon Dioxide 27 mmol/L (22-30); Chloride 90 mmol/L (98-107); Estimated CRCL calculation 87 ml/min; Estimated Glomerular Filt Rate > 60; Glucose 104 mg/dL (65-110); Magnesium 1.9 mg/dL (1.6-2.3); Potassium 3.8 mmol/L (3.4-5.0); Sodium 123 mmol/L (137-145)
[2024-05-01] MEDS: FLUTICASONE/SALMETEROL 115-21 MCG INHALER 1 PUFF 2 PUFF INHALATION ×2 (08:34→20:53)
[2024-05-01 08:35] VITALS: PULSE 83; RESP 16; O2SAT 94
[2024-05-01] MEDS: oxyCODONE HCL (*CRX) 5 MG TAB IR PO ×3 (08:49→20:40)
[2024-05-01] MEDS: VITAMIN E 400 UNIT CAPSULE 800 UNIT PO (08:50)
[2024-05-01] MEDS: SODIUM CHLORIDE 1 GM TABLET PO ×3 (08:50→16:07)
[2024-05-01] MEDS: LIDOCAINE 5% PATCH 1 PATCH TRANSDERM (08:50)
[2024-05-01] MEDS: DOCUSATE SODIUM 100 MG CAPSULE PO (08:50)
[2024-05-01] MEDS: PREGABALIN (*CRX) 75 MG CAPSULE 150 MG PO ×2 (08:51→20:40)
[2024-05-01] MEDS: BACLOFEN 10 MG TABLET PO ×3 (08:51→16:07)
[2024-05-01] MEDS: LOSARTAN POTASSIUM 100 MG TABLET PO (08:51)
[2024-05-01] MEDS: amLODIPine BESYLATE 10 MG TABLET PO (08:51)
[2024-05-01] MEDS: MEMANTINE 5 MG TABLET PO ×2 (08:51→16:07)
[2024-05-01] MEDS: FUROSEMIDE 10 MG TABLET PO ×3 (08:51→16:07)
[2024-05-01] MEDS: VITAMIN B COMPLEX CAPSULE 1 CAP PO ×2 (08:51→16:07)
[2024-05-01] MEDS: PANTOPRAZOLE 40 MG TABLET PO (08:51)
[2024-05-01] MEDS: PRIMIDONE 50 MG TABLET 200 MG PO ×2 (08:51→20:39)
[2024-05-01 08:52] VITALS: PULSE 96
[2024-05-01] MEDS: CHOLECALCIFEROL 400 UNITS TABLET (VIT D) PO (08:52)
[2024-05-01] MEDS: FAMCICLOVIR 250 MG TABLET PO ×2 (08:52→20:40)
[2024-05-01] MEDS: METOPROLOL TARTRATE 50 MG TAB 100 MG PO ×2 (08:52→20:40)
[2024-05-01] MEDS: MAGNESIUM 13.5 MG TABLET (250 MG MAG GLUCONATE) PO (08:52)
[2024-05-01] MEDS: FLUTICASONE PROPIONATE 0.05% NA SPR 16 GM BTL (*BKC) 2 SPRAY NASAL (08:53)
[2024-05-01 08:57] LABS: Band Neutrophils Percent 7 % (0-6); Eosinophils Percent Manual 5 % (0-4); Hypochromasia 1+; Monocytes Absolute Manual 0.12 K/mm3 (0.1-0.90); Monocytes Percent Manual 1 % (3-9); Neutrophils Absolute Manual 8.88 K/mm3 (1.7-7.2); Neutrophils Percent Manual 67 % (46-73); Platelet Estimate Adequate (Adequate); Schistocytes None Seen; Total Cells Counted 100
[2024-05-01] MEDS: ONDANSETRON INJ 4 MG/2 ML VIAL IV PUSH ×2 (10:19→22:07)
--- NOTE | 2024-05-01 11:23 | PM.PNNEP ---
Progress Note: A&P Assessment and Plan (1) Hyponatremia: Code(s): E87.1 - Hypo-osmolality and hyponatremia Status: Acute Assessment and Plan: stable - only mild improvement acute on chronic present as far back as 2028 fluctuates to extremes -- anywhere from 122 - 136mmol/L risk factors for low sodium: chronic respiratory failure asthma SANTI chronic pain narcotics PPI use diuretic use on fluid restriction initiated on salt tabs evaluation to date noted: TSH and T3 low, T4 okay cortisol okay urine electrolytes non-prerenal CXR okay SPEP/UPEP and serum/urine osmo pending on low dose lasix with salt tabs as well as fluid restriction follow trend of repeat sodium levels (2) Urinary tract infection: Code(s): N39.0 - Urinary tract infection, site not specified Status: Acute Assessment and Plan: admission UA suggestive urine culture with Klebsiella on antibiotics (3) Colitis: Code(s): K52.9 - Noninfective gastroenteritis and colitis, unspecified Status: Acute Assessment and Plan: as suggested by CT imaging complicated by hematochezia (but this has resolved) H/H stable GI following (4) Status post fall: Code(s): Z91.81 - History of falling Status: Acute Assessment and Plan: as note by admission history no fracture or acute injuries PT/OT as tolerated Will continue to follow. Subjective Date/time seen: 05/01/24 11:23 Interval history: Follow-up for acute on chronic hyponatremia. Only mild improvement in sodium level in the last 24 hours; salt tabs increased to tid frequency in conjunction with low dose lasix; major complaint remains fatigue and weakness; no apparent distress noted at the time of my visit. Exam Narrative: General: elderly female in NAD Heart: normal S1 and S2; no rub Lungs: diminished at bases Abdomen: soft, nontender, nondistended, positive bowel sounds Extremities: no cyanosis or clubbing; no edema; s/p left AKA Skin: no rash Objective Data Vital Signs Vital Signs: Vital Signs Temp Pulse Resp BP Pulse Ox O2 Del Method FiO2 05/01/24 08:51 Room Air 05/01/24 08:52 96 05/01/24 08:35 83 16 05/01/24 08:35 94 Room Air 21 05/01/24 06:00 97.5 F L 71 20 153/61 H 100 04/30/24 21:09 91 18 04/30/24 21:09 94 Room Air 04/30/24 21:01 98.9 F 92 18 151/56 H 96 04/30/24 20:00 Room Air 21 04/30/24 14:00 97.8 F 68 18 130/46 L 98 Intake/Output Intake/Output: Intake & Output 04/28/24 04/29/24 04/30/24 05/01/24 23:59 23:59 23:59 23:59 Intake Total 1960 1210 250 358 Output Total 2650 1940 1900 500 Balance -690 -730 -1650 -142 Meds/Results Medications: Active Medications Generic Name Dose Route Start Last Admin Trade Name Freq PRN Reason Stop Dose Admin Acetaminophen 650 mg 04/23/24 18:24 04/28/24 03:27 Acetaminophen 325 Mg Tablet PO 650 mg Q4H PRN Administration Mild Pain (1-3) or Fever Albuterol 1 puff 04/23/24 20:53 Albuterol Sulfate (*Sp) Aerosol 1 Puff INHALATION DAILY PRN sob/wheezing Amlodipine Besylate 10 mg 04/24/24 09:00 05/01/24 08:51 Amlodipine Besylate 10 Mg Tablet PO 10 mg DAILY KELIN Administration Atorvastatin Calcium 10 mg 04/23/24 21:00 04/30/24 20:41 Atorvastatin 10 Mg Tablet PO 10 mg HS KELIN Administration Baclofen 10 mg 04/24/24 09:00 05/01/24 12:14 Baclofen 10 Mg Tablet PO 10 mg TID KELIN Administration Bisacodyl 10 mg 04/23/24 20:53 Bisacodyl 5 Mg Tablet Ec PO HS PRN Constipation Docusate Sodium 100 mg 04/27/24 09:00 05/01/24 08:50 Docusate Sodium 100 Mg Capsule PO 100 mg QAM KELIN Administration Enoxaparin Sodium 40 mg 04/26/24 09:00 04/27/24 09:22 Enoxaparin 40 Mg/0.4 Ml Syringe SUB-Q 40 mg DAILY KELIN Administration Famciclovir 2
--- NOTE | 2024-05-01 11:23 | P.PNNP_ITS ---
Progress Note: A&P Assessment and Plan (1) Hyponatremia: Code(s): E87.1 - Hypo-osmolality and hyponatremia Status: Acute Assessment and Plan: * stable - only mild improvement * acute on chronic * present as far back as 2028 * fluctuates to extremes -- anywhere from 122 - 136mmol/L * risk factors for low sodium: * chronic respiratory failure * asthma * SANTI * chronic pain * narcotics * PPI use * diuretic use * on fluid restriction * initiated on salt tabs * evaluation to date noted: * TSH and T3 low, T4 okay * cortisol okay * urine electrolytes non-prerenal * CXR okay * SPEP/UPEP and serum/urine osmo pending * on low dose lasix with salt tabs as well as fluid restriction * follow trend of repeat sodium levels (2) Urinary tract infection: Code(s): N39.0 - Urinary tract infection, site not specified Status: Acute Assessment and Plan: * admission UA suggestive * urine culture with Klebsiella * on antibiotics (3) Colitis: Code(s): K52.9 - Noninfective gastroenteritis and colitis, unspecified Status: Acute Assessment and Plan: * as suggested by CT imaging * complicated by hematochezia (but this has resolved) * H/H stable * GI following (4) Status post fall: Code(s): Z91.81 - History of falling Status: Acute Assessment and Plan: * as note by admission history * no fracture or acute injuries * PT/OT as tolerated Will continue to follow. Subjective Date/time seen: 05/01/24 11:23 Interval history: Follow-up for acute on chronic hyponatremia. Only mild improvement in sodium level in the last 24 hours; salt tabs increased to tid frequency in conjunction with low dose lasix; major complaint remains fatigue and weakness; no apparent distress noted at the time of my visit. Exam Narrative: General: elderly female in NAD Heart: normal S1 and S2; no rub Lungs: diminished at bases Abdomen: soft, nontender, nondistended, positive bowel sounds Extremities: no cyanosis or clubbing; no edema; s/p left AKA Skin: no rash Objective Data Vital Signs Vital Signs: Vital Signs Temp Pulse Resp BP Pulse Ox O2 Del Method FiO2 05/01/24 08:51 Room Air 05/01/24 08:52 96 05/01/24 08:35 83 16 05/01/24 08:35 94 Room Air 21 05/01/24 06:00 97.5 F L 71 20 153/61 H 100 04/30/24 21:09 91 18 04/30/24 21:09 94 Room Air 04/30/24 21:01 98.9 F 92 18 151/56 H 96 04/30/24 20:00 Room Air 21 04/30/24 14:00 97.8 F 68 18 130/46 L 98 Intake/Output Intake/Output: Intake & Output 04/28/24 04/29/24 04/30/24 05/01/24 23:59 23:59 23:59 23:59 Intake Total 1960 1210 250 358 Output Total 2650 1940 1900 500 [facility] -790 -730 -1650 -142 Meds/Results Medications: Active Medications Generic Name Dose Route Start Last Admin Trade Name Freq PRN Reason Stop Dose Admin Acetaminophen 650 mg 04/23/24 18:24 04/28/24 03:27 Acetaminophen 325 Mg Tablet PO 650 mg Q4H PRN Administration Mild Pain (1-3) or Fever
--- NOTE | 2024-05-01 12:19 | PM.IMPN ---
Progress Note: A&P Assessment and Plan (1) Fall from toilet seat: Code(s): W18.11XA - Fall from or off toilet without subsequent striking against object, initial encounter Status: Acute (2) Tachycardia: Code(s): R00.0 - Tachycardia, unspecified Status: Acute (3) Asthma: Code(s): J45.909 - Unspecified asthma, uncomplicated Status: Acute (4) Chronic anemia: Code(s): D64.9 - Anemia, unspecified Status: Acute Plan UTI Urine culture positive for Klebsiella pneumoniae changed Rocephin to Keflex to complete total of 7 days Blood culture positive for S epidermidis in one bottle which is a contaminant GI bleed Patient had bloody bowel movement Hemoglobin 11.3. GI evaluated and noted outpatient colonoscopy in 6-8 weeks. Monitor. Hyponatremia, recalcitrant sodium 122 this morning down from 132 on admission Urine sodium 88, others pending Continue Fluid restriction, increased Sodium tablets to TID and lasix added Nephrology to adjust care Dr Rodgers following Fall No fractures on imaging PT/OT consulted Continue home bronchodilators, continue other home meds DVT prophylaxis hold Lovenox Awaiting improvement on Hyponatremia for SNF discharge Subjective Date/time seen: 05/01/24 12:19 Interval history: Sodium 123 Lasix added and sodium tablets increased to tid Nephrology on board Review of Systems Review of Systems: 12 systems were reviewed and are negative except for as per HPI. Exam Narrative: General: Mildly ill-appearing female in the semi-Siegel position in bed. Weight: 90.9 kg. BMI: 37.9. HEENT: PERRL, EOMI. Sclera anicteric. Tacky mucous membranes. Neck: Supple. No midline vertebral tenderness. Respiratory: Respirations are nonlabored. Lung sounds are a bit diminished with faint expiratory wheezing. Cardiovascular: Tachycardic with normal S1-S2. Gastrointestinal: Abdomen is soft and nondistended with positive bowel sounds. She is tender to palpation over the left side of the abdomen. No guarding or rebound tenderness. Equivocal left-sided CVA tenderness. Skin: Warm and dry. No rash or lesions on limited exam. Extremities: No cyanosis, clubbing, or right lower extremity edema. Status post left [id number]-amy-[id number] amputation. Neurological: Alert. Cranial nerves 2-12 are grossly intact. Generally weak without gross focal deficits. Psychiatric: Cooperative with appropriate mood and flat affect. Objective Data Vital Signs Vital Signs: Vital Signs - 24 hr 04/30/24 14:00 04/30/24 20:00 04/30/24 21:01 Temperature 97.8 F 98.9 F Pulse Rate 68 92 Respiratory Rate 18 18 Blood Pressure 130/46 L 151/56 H Pulse Oximetry 98 96 Oxygen Delivery Room Air Fraction of Inspired Oxygen 21 04/30/24 21:09 04/30/24 21:09 05/01/24 06:00 Temperature 97.5 F L Pulse Rate 91 71 Respiratory Rate 18 20 Blood Pressure 153/61 H Pulse Oximetry 94 100 Oxygen Delivery Room Air Fraction of Inspired Oxygen 05/01/24 08:35 05/01/24 08:35 05/01/24 08:52 Temperature Pulse Rate 83 96 Respiratory Rate 16 Blood Pressure Pulse Oximetry 94 Oxygen Delivery Room Air Fraction of Inspired Oxygen 21 05/01/24 08:51 Temperature Pulse Rate Respiratory Rate Blood Pressure Pulse Oximetry Oxygen Delivery Room Air Fraction of Inspired Oxygen Intake/Output Intake/Output: Intake & Output 04/28/24 04/29/24 04/30/24 05/01/24 23:59 23:59 23:59 23:59 Intake Total 1960 1210 250 358 Output Total 2650 1940 1900 500 [facility] -690 -730 -1650 -142 Meds/Results Medications: Active Medications Generic Name Dose Route Start Last Admin Trade Name Freq PRN Reason Stop Dose Admin Acetaminophen 650 mg 04/23/24 18:24 04/28/24 03:27 Acetaminophen 325 Mg Tablet PO 650 mg Q4H PRN Administration Mild Pain (1-3) or Fever Albuterol 1 puff 04/23/24 20:53 Albuterol Sulfate (*Sp
[2024-05-01 14:00] VITALS: BP 135/66; PULSE 81; RESP 18; TEMP 36.2; O2SAT 95
[2024-05-01 14:58] LABS: Osmolality, Urine 317 mOsm/kg (50-1200)
[2024-05-01 14:58] LABS: Osmolality, Urine 284 mOsm/kg (50-1200)
[2024-05-01] MEDS: ATORVASTATIN 10 MG TABLET PO (20:40)
[2024-05-01 20:49] VITALS: BP 180/81; PULSE 102; RESP 20; TEMP 36.8; O2SAT 95
[2024-05-01 20:57] VITALS: PULSE 95; RESP 20; O2SAT 93
[2024-05-02 03:34] LABS: Protein, Total 5.8 g/dL (6.1-8.1)
--- NOTE | 2024-05-02 04:57 | PC.NURSE ---
SPoke with Dr. Haile at this time r/t patient elevated BP 184/72 69. Orders received to give morning BP meds early.
[2024-05-02 05:05] VITALS: BP 184/72; PULSE 69; RESP 18; TEMP 36.4; O2SAT 94
[2024-05-02] MEDS: METOPROLOL TARTRATE 50 MG TAB 100 MG PO ×2 (05:20→21:08)
[2024-05-02] MEDS: amLODIPine BESYLATE 10 MG TABLET PO (05:21)
[2024-05-02] MEDS: LOSARTAN POTASSIUM 100 MG TABLET PO (05:21)
[2024-05-02] MEDS: oxyCODONE HCL (*CRX) 5 MG TAB IR PO ×3 (05:25→21:08)
[2024-05-02] MEDS: LORazepam (*CRX) 1 MG TABLET PO ×3 (05:25→21:09)
[2024-05-02 06:58] VITALS: PULSE 63; RESP 18; O2SAT 93
[2024-05-02] MEDS: FLUTICASONE/SALMETEROL 115-21 MCG INHALER 1 PUFF 2 PUFF INHALATION ×2 (06:58→20:35)
[2024-05-02 06:59] VITALS: BP 149/72
[2024-05-02 08:24] LABS: Alanine Aminotransferase 62 U/L (6-35); Albumin Level 3.8 g/dL (3.5-5.1); Alkaline Phosphatase 109 U/L (38-126); Anion Gap 6 mmol/L (4-12); Aspartate Amino Transferase 53 U/L (14-36); Bilirubin,Total 0.3 mg/dL (0.2-1.3); Blood Urea Nitrogen 18 mg/dL (7-17); Calcium 8.5 mg/dL (8.4-10.2); Carbon Dioxide 30 mmol/L (22-30); Chloride 92 mmol/L (98-107); Estimated CRCL calculation 74 ml/min; Estimated Glomerular Filt Rate > 60; Glucose 104 mg/dL (65-110); Sodium 128 mmol/L (137-145)
[2024-05-02 08:32] LABS: Basophils Absolute Auto 0.1 K/mm3 (0.0-0.1); Basophils Percent Auto 0.8 % (0.2-1.2); Eosinophils Absolute Auto 0.2 K/mm3 (0-0.3); Eosinophils Percent Auto 1.6 % (0-4.4); Hematocrit 34.8 % (37.0-47.0); Immature Granulocyte Absolute 1.09 K/mm3 (0.00-0.031); Immature Granulocyte Percent A 7.7 % (0-0.5); Lymphocytes Absolute Auto 2.55 K/mm3 (0.9-3.2); Mean Corpuscular HGB Conc 34.5 g/dl (32-36); Mean Corpuscular Hemoglobin 33.1 pg (26-34); Mean Corpuscular Volume 96.1 fl (80-100); Mean Platelet Volume 9.7 fl (7.4-10.4); Monocytes Absolute Auto 1.2 K/mm3 (0.1-0.6); Monocytes Percent Auto 8.4 % (2.6-8.5); Neutrophils Percent Auto 63.5 % (45.5-73.1); Platelet Count Result 318 k/mm3 (150-375); Red Blood Count 3.62 M/mm3 (4.2-5.4); Red Cell Distribution Width 12.2 % (11.5-14.5); White Blood Count 14.2 K/mm3 (4.5-10.0)
[2024-05-02] MEDS: ONDANSETRON INJ 4 MG/2 ML VIAL IV PUSH (08:36)
[2024-05-02] MEDS: FUROSEMIDE 10 MG TABLET PO ×3 (08:36→16:09)
[2024-05-02] MEDS: FAMCICLOVIR 250 MG TABLET PO ×2 (08:36→21:09)
[2024-05-02] MEDS: LIDOCAINE 5% PATCH 1 PATCH TRANSDERM (08:36)
[2024-05-02] MEDS: DOCUSATE SODIUM 100 MG CAPSULE PO (08:37)
[2024-05-02] MEDS: FLUTICASONE PROPIONATE 0.05% NA SPR 16 GM BTL (*BKC) 2 SPRAY NASAL (08:37)
[2024-05-02] MEDS: VITAMIN B COMPLEX CAPSULE 1 CAP PO ×2 (08:37→16:09)
[2024-05-02] MEDS: PREGABALIN (*CRX) 75 MG CAPSULE 150 MG PO ×2 (08:37→21:09)
[2024-05-02] MEDS: MAGNESIUM 13.5 MG TABLET (250 MG MAG GLUCONATE) PO (08:37)
[2024-05-02] MEDS: CHOLECALCIFEROL 400 UNITS TABLET (VIT D) PO (08:37)
[2024-05-02] MEDS: VITAMIN E 400 UNIT CAPSULE 800 UNIT PO (08:37)
[2024-05-02] MEDS: PRIMIDONE 50 MG TABLET 200 MG PO ×2 (08:37→21:08)
[2024-05-02] MEDS: BACLOFEN 10 MG TABLET PO ×3 (08:37→16:09)
[2024-05-02] MEDS: SODIUM CHLORIDE 1 GM TABLET PO ×3 (08:37→16:09)
[2024-05-02] MEDS: MEMANTINE 5 MG TABLET PO ×2 (08:37→16:09)
[2024-05-02] MEDS: PANTOPRAZOLE 40 MG TABLET PO (08:37)
--- NOTE | 2024-05-02 11:07 | P.PNNP_ITS ---
Progress Note: A&P Assessment and Plan (1) Hyponatremia: Code(s): E87.1 - Hypo-osmolality and hyponatremia Status: Acute Assessment and Plan: * improvement noted * acute on chronic * present as far back as 2019 * fluctuates to extremes -- anywhere from 122 - 136mmol/L * risk factors for low sodium: * chronic respiratory failure * asthma * SANTI * chronic pain * narcotics * PPI use * diuretic use * evaluation to date noted: * TSH and T3 low, T4 okay * cortisol okay * urine electrolytes non-prerenal * CXR okay * SPEP/UPEP and serum/urine osmo pending * on low dose lasix with salt tabs as well as fluid restriction * follow trend of repeat sodium levels (2) Urinary tract infection: Code(s): N39.0 - Urinary tract infection, site not specified Status: Acute Assessment and Plan: * admission UA suggestive * urine culture with Klebsiella * on antibiotics (3) Colitis: Code(s): K52.9 - Noninfective gastroenteritis and colitis, unspecified Status: Acute Assessment and Plan: * as suggested by CT imaging * complicated by hematochezia (but this has resolved) * H/H stable * GI following (4) Status post fall: Code(s): Z91.81 - History of falling Status: Acute Assessment and Plan: * as note by admission history * no fracture or acute injuries * PT/OT as tolerated Not opposed to discharge from renal perspective if otherwise medically stable. Will continue to follow. Subjective Date/time seen: 05/02/24 11:07 Interval history: Follow-up for acute on chronic hyponatremia. Sodium has improved in the last 24 hours with increased frequency of salt tabs + lasix in conjunction with fluid restriction; resting comfortably at the time of my visit; no issues/events overnight or earlier this morning; no apparent distress voiced. Exam Narrative: General: elderly female in NAD Heart: normal S1 and S2; no rub Lungs: diminished at bases Abdomen: soft, nontender, nondistended, positive bowel sounds Extremities: no cyanosis or clubbing; no edema; s/p left AKA Skin: no nodules Objective Data Vital Signs Vital Signs: Vital Signs Temp Pulse Resp BP Pulse Ox O2 Del Method 05/02/24 08:37 Room Air 05/02/24 06:58 63 18 05/02/24 06:58 63 18 93 Room Air 05/02/24 06:59 149/72 H 05/02/24 05:05 97.5 F L 69 18 184/72 H 94 05/01/24 20:57 95 20 05/01/24 20:57 93 Room Air 05/01/24 20:49 98.2 F 102 H 20 180/81 H 95 05/01/24 20:00 Room Air 05/01/24 14:00 97.2 F L 81 18 135/66 95 Intake/Output Intake/Output: Intake & Output 04/29/24 04/30/24 05/01/24 05/02/24 23:59 23:59 23:59 23:59 Intake Total 1210 250 838 454 Output Total 1940 1900 975 450 Balance -730 -0080 -137 4 Meds/Results Medications: Active Medications Generic Name Dose Route Start Last Admin Trade Name Freq PRN Reason Stop Dose Admin Acetaminophen 650 mg 04/23/24 18:24 04/28/24 03:27 Acetaminophen 325 Mg Tablet PO 650 mg Q4H PRN Administration
--- NOTE | 2024-05-02 11:07 | PM.PNNEP ---
Progress Note: A&P Assessment and Plan (1) Hyponatremia: Code(s): E87.1 - Hypo-osmolality and hyponatremia Status: Acute Assessment and Plan: improvement noted acute on chronic present as far back as 2019 fluctuates to extremes -- anywhere from 122 - 136mmol/L risk factors for low sodium: chronic respiratory failure asthma SANTI chronic pain narcotics PPI use diuretic use evaluation to date noted: TSH and T3 low, T4 okay cortisol okay urine electrolytes non-prerenal CXR okay SPEP/UPEP and serum/urine osmo pending on low dose lasix with salt tabs as well as fluid restriction follow trend of repeat sodium levels (2) Urinary tract infection: Code(s): N39.0 - Urinary tract infection, site not specified Status: Acute Assessment and Plan: admission UA suggestive urine culture with Klebsiella on antibiotics (3) Colitis: Code(s): K52.9 - Noninfective gastroenteritis and colitis, unspecified Status: Acute Assessment and Plan: as suggested by CT imaging complicated by hematochezia (but this has resolved) H/H stable GI following (4) Status post fall: Code(s): Z91.81 - History of falling Status: Acute Assessment and Plan: as note by admission history no fracture or acute injuries PT/OT as tolerated Not opposed to discharge from renal perspective if otherwise medically stable. Will continue to follow. Subjective Date/time seen: 05/02/24 11:07 Interval history: Follow-up for acute on chronic hyponatremia. Sodium has improved in the last 24 hours with increased frequency of salt tabs + lasix in conjunction with fluid restriction; resting comfortably at the time of my visit; no issues/events overnight or earlier this morning; no apparent distress voiced. Exam Narrative: General: elderly female in NAD Heart: normal S1 and S2; no rub Lungs: diminished at bases Abdomen: soft, nontender, nondistended, positive bowel sounds Extremities: no cyanosis or clubbing; no edema; s/p left AKA Skin: no nodules Objective Data Vital Signs Vital Signs: Vital Signs Temp Pulse Resp BP Pulse Ox O2 Del Method 05/02/24 08:37 Room Air 05/02/24 06:58 63 18 05/02/24 06:58 63 18 93 Room Air 05/02/24 06:59 149/72 H 05/02/24 05:05 97.5 F L 69 18 184/72 H 94 05/01/24 20:57 95 20 05/01/24 20:57 93 Room Air 05/01/24 20:49 98.2 F 102 H 20 180/81 H 95 05/01/24 20:00 Room Air 05/01/24 14:00 97.2 F L 81 18 135/66 95 Intake/Output Intake/Output: Intake & Output 04/29/24 04/30/24 05/01/24 05/02/24 23:59 23:59 23:59 23:59 Intake Total 1210 250 838 454 Output Total 1940 1900 975 450 Balance -301 -1650 -137 4 Meds/Results Medications: Active Medications Generic Name Dose Route Start Last Admin Trade Name Freq PRN Reason Stop Dose Admin Acetaminophen 650 mg 04/23/24 18:24 04/28/24 03:27 Acetaminophen 325 Mg Tablet PO 650 mg Q4H PRN Administration Mild Pain (1-3) or Fever Albuterol 1 puff 04/23/24 20:53 Albuterol Sulfate (*Sp) Aerosol 1 Puff INHALATION DAILY PRN sob/wheezing Amlodipine Besylate 10 mg 04/24/24 09:00 05/02/24 05:21 Amlodipine Besylate 10 Mg Tablet PO 10 mg DAILY KELIN Administration Atorvastatin Calcium 10 mg 04/23/24 21:00 05/01/24 20:40 Atorvastatin 10 Mg Tablet PO 10 mg HS KELIN Administration Baclofen 10 mg 04/24/24 09:00 05/02/24 08:37 Baclofen 10 Mg Tablet PO 10 mg TID KELIN Administration Bisacodyl 10 mg 04/23/24 20:53 Bisacodyl 5 Mg Tablet Ec PO HS PRN Constipation Docusate Sodium 100 mg 04/27/24 09:00 05/02/24 08:37 Docusate Sodium 100 Mg Capsule PO 100 mg QAM KELIN Administration Enoxaparin Sodium 40 mg 04/26/24 09:00 04/27/24 09:22 Enoxaparin 40 Mg/0.4 Ml Syringe SUB-Q 40 mg DAILY S
[2024-05-02 14:00] VITALS: BP 148/56; PULSE 77; RESP 18; TEMP 35.9; O2SAT 98
--- NOTE | 2024-05-02 14:51 | PCPTNOTE ---
Attempted to see patient 2x today. Patient sleeping in AM and was able to arouse but continued to fall back to sleep. Patient refused PT this afternoon stating I have been poked and prodded all day. I just want to rest. Educated patient of the importance of participating in PT to improve strength and mobility. Patient voices understanding but continued to decline stating If you come back tomorrow maybe I can sit up on the edge of the bed. PT will continue to follow per plan of care.
[2024-05-02 15:02] LABS: Sodium 130 mmol/L (137-145)
[2024-05-02 15:03] LABS: Albumin 2.8 g/dL (3.8-4.8); Alpha 1 Globulin 0.5 g/dL (0.2-0.3); Alpha 2 Globulin 1.3 g/dL (0.5-0.9); Beta 1 Globulin 0.4 g/dL (0.4-0.6); Gamma Globulin 0.6 g/dL (0.8-1.7)
--- NOTE | 2024-05-02 15:54 | PM.IMPN ---
Progress Note: A&P Assessment and Plan (1) Fall from toilet seat: Code(s): W18.11XA - Fall from or off toilet without subsequent striking against object, initial encounter Status: Acute (2) Tachycardia: Code(s): R00.0 - Tachycardia, unspecified Status: Acute (3) Asthma: Code(s): J45.909 - Unspecified asthma, uncomplicated Status: Acute (4) Chronic anemia: Code(s): D64.9 - Anemia, unspecified Status: Acute Plan UTI Urine culture positive for Klebsiella pneumoniae changed Rocephin to Keflex to complete total of 7 days Blood culture positive for S epidermidis in one bottle which is a contaminant GI bleed Patient had bloody bowel movement Hemoglobin 11.3. GI evaluated and noted outpatient colonoscopy in 6-8 weeks. Monitor. Hyponatremia, recalcitrant sodium 122 this morning down from 132 on admission Urine sodium 88, others pending Continue Fluid restriction, increased Sodium tablets to TID and lasix added Nephrology to adjust care Dr Rodgers following Fall No fractures on imaging PT/OT consulted Continue home bronchodilators, continue other home meds DVT prophylaxis hold Lovenox Awaiting improvement on Hyponatremia for SNF discharge Subjective Date/time seen: 05/02/24 15:54 Interval history: No acute events overnight. Sodium has been improved to 130 from 123 yesterday. We will repeat the sodium at 5:00 p.m. today. Review of Systems Review of Systems: 12 systems were reviewed and are negative except for as per HPI. Exam Narrative: General: Mildly ill-appearing female in the semi-Siegel position in bed. Weight: 90.9 kg. BMI: 37.9. HEENT: PERRL, EOMI. Sclera anicteric. Tacky mucous membranes. Neck: Supple. No midline vertebral tenderness. Respiratory: Respirations are nonlabored. Lung sounds are a bit diminished with faint expiratory wheezing. Cardiovascular: Tachycardic with normal S1-S2. Gastrointestinal: Abdomen is soft and nondistended with positive bowel sounds. She is tender to palpation over the left side of the abdomen. No guarding or rebound tenderness. Equivocal left-sided CVA tenderness. Skin: Warm and dry. No rash or lesions on limited exam. Extremities: No cyanosis, clubbing, or right lower extremity edema. Status post left [id number] amputation. Neurological: Alert. Cranial nerves 2-12 are grossly intact. Generally weak without gross focal deficits. Psychiatric: Cooperative with appropriate mood and flat affect. Objective Data Vital Signs Vital Signs: Vital Signs - 24 hr 05/01/24 20:00 05/01/24 20:49 05/01/24 20:57 Temperature 98.2 F Pulse Rate 102 H Respiratory Rate 20 Blood Pressure 180/81 H Pulse Oximetry 95 93 Oxygen Delivery Room Air Room Air 05/01/24 20:57 05/02/24 05:05 05/02/24 06:59 Temperature 97.5 F L Pulse Rate 95 69 Respiratory Rate 20 18 Blood Pressure 184/72 H 149/72 H Pulse Oximetry 94 Oxygen Delivery 05/02/24 06:58 05/02/24 06:58 05/02/24 08:37 Temperature Pulse Rate 63 63 Respiratory Rate 18 18 Blood Pressure Pulse Oximetry 93 Oxygen Delivery Room Air Room Air 05/02/24 14:00 Temperature 96.6 F L Pulse Rate 77 Respiratory Rate 18 Blood Pressure 148/56 H Pulse Oximetry 98 Oxygen Delivery Intake/Output Intake/Output: Intake & Output 04/29/24 04/30/24 05/01/24 05/02/24 23:59 23:59 23:59 23:59 Intake Total 1210 250 838 454 Output Total 1940 8778 892 4656 [facility]730 -1650 -137 -596 Meds/Results Medications: Active Medications Generic Name Dose Route Start Last Admin Trade Name Freq PRN Reason Stop Dose Admin Acetaminophen 650 mg 04/23/24 18:24 04/28/24 03:27 Acetaminophen 325 Mg Tablet PO 650 mg Q4H PRN Administration Mild Pain (1-3) or Fever Albuterol 1 puff 04/23/24 20:53 Albuterol Sulfate (*Sp) Aerosol 1 Puff INHALATION DAILY PRN sob/wheezing Amlodipi
[2024-05-02 19:36] LABS: Sodium 129 mmol/L (137-145)
[2024-05-02 20:22] VITALS: BP 172/64; PULSE 96; RESP 16; TEMP 36.9; O2SAT 94
[2024-05-02 20:39] VITALS: PULSE 66; RESP 18
[2024-05-02] MEDS: ATORVASTATIN 10 MG TABLET PO (21:09)
[2024-05-03] VITALS (7 sets, daily range): BP systolic 138–155; BP diastolic 58–73; PULSE 72–100; RESP 12–18; TEMP 36.3–36.4; O2SAT 91–100
[2024-05-03] MEDS: oxyCODONE HCL (*CRX) 5 MG TAB IR PO ×3 (07:05→19:19)
[2024-05-03 07:06] LABS: Hemoglobin 11.1 g/dL (12.0-15.0); Mean Corpuscular HGB Conc 31.7 g/dl (32-36); Mean Corpuscular Hemoglobin 32.6 pg (26-34); Mean Corpuscular Volume 102.9 fl (80-100); Mean Platelet Volume 9.6 fl (7.4-10.4); Platelet Count Result 281 k/mm3 (150-375); Red Cell Distribution Width 12.6 % (11.5-14.5); White Blood Count 12.5 K/mm3 (4.5-10.0)
[2024-05-03] MEDS: LORazepam (*CRX) 1 MG TABLET PO ×3 (07:07→19:19)
[2024-05-03 07:35] LABS: Alanine Aminotransferase 67 U/L (6-35); Albumin Level 3.6 g/dL (3.5-5.1); Alkaline Phosphatase 99 U/L (38-126); Anion Gap 6 mmol/L (4-12); Aspartate Amino Transferase 52 U/L (14-36); Bilirubin,Total 0.2 mg/dL (0.2-1.3); Blood Urea Nitrogen 21 mg/dL (7-17); Calcium 8.2 mg/dL (8.4-10.2); Carbon Dioxide 27 mmol/L (22-30); Chloride 97 mmol/L (98-107); Estimated CRCL calculation 74 ml/min; Estimated Glomerular Filt Rate > 60; Glucose 99 mg/dL (65-110); Potassium 3.9 mmol/L (3.4-5.0); Sodium 130 mmol/L (137-145)
[2024-05-03] MEDS: FLUTICASONE/SALMETEROL 115-21 MCG INHALER 1 PUFF 2 PUFF INHALATION ×2 (07:40→20:11)
[2024-05-03] MEDS: LIDOCAINE 5% PATCH 1 PATCH TRANSDERM (08:53)
[2024-05-03] MEDS: VITAMIN B COMPLEX CAPSULE 1 CAP PO ×2 (08:53→16:13)
[2024-05-03] MEDS: MEMANTINE 5 MG TABLET PO ×2 (08:53→16:13)
[2024-05-03] MEDS: PREGABALIN (*CRX) 75 MG CAPSULE 150 MG PO (08:53)
[2024-05-03] MEDS: VITAMIN E 400 UNIT CAPSULE 800 UNIT PO (08:53)
[2024-05-03] MEDS: CHOLECALCIFEROL 400 UNITS TABLET (VIT D) PO (08:53)
[2024-05-03] MEDS: PRIMIDONE 50 MG TABLET 200 MG PO ×2 (08:53→21:23)
[2024-05-03] MEDS: SODIUM CHLORIDE 1 GM TABLET PO ×2 (08:54→12:23)
[2024-05-03] MEDS: PANTOPRAZOLE 40 MG TABLET PO (08:54)
[2024-05-03] MEDS: MAGNESIUM 13.5 MG TABLET (250 MG MAG GLUCONATE) PO (08:54)
[2024-05-03] MEDS: BACLOFEN 10 MG TABLET PO ×3 (08:54→16:13)
[2024-05-03] MEDS: METOPROLOL TARTRATE 50 MG TAB 100 MG PO ×2 (08:54→21:24)
[2024-05-03] MEDS: FLUTICASONE PROPIONATE 0.05% NA SPR 16 GM BTL (*BKC) 2 SPRAY NASAL (08:54)
[2024-05-03] MEDS: DOCUSATE SODIUM 100 MG CAPSULE PO (08:54)
[2024-05-03] MEDS: amLODIPine BESYLATE 10 MG TABLET PO (08:54)
[2024-05-03] MEDS: FUROSEMIDE 10 MG TABLET PO ×2 (08:54→12:23)
[2024-05-03] MEDS: FAMCICLOVIR 250 MG TABLET PO (08:54)
[2024-05-03] MEDS: LOSARTAN POTASSIUM 100 MG TABLET PO (08:54)
--- NOTE | 2024-05-03 12:25 | PM.IMPN ---
Progress Note: A&P Assessment and Plan (1) Fall from toilet seat: Code(s): W18.11XA - Fall from or off toilet without subsequent striking against object, initial encounter Status: Acute (2) Tachycardia: Code(s): R00.0 - Tachycardia, unspecified Status: Acute (3) Asthma: Code(s): J45.909 - Unspecified asthma, uncomplicated Status: Acute (4) Chronic anemia: Code(s): D64.9 - Anemia, unspecified Status: Acute Plan UTI Urine culture positive for Klebsiella pneumoniae Completed Kefelex Blood culture positive for S epidermidis in one bottle which is a contaminant GI bleed Patient had bloody bowel movement Hemoglobin 11.3. GI evaluated and noted outpatient colonoscopy in 6-8 weeks. Monitor. Hyponatremia, recalcitrant Na 130 Urine sodium 88, others pending DC Fluid restriction, Sodium tablets BID and lasix BID Nephrology to adjust care Dr Rodgers following Fall No fractures on imaging PT/OT consulted Continue home bronchodilators, continue other home meds DVT prophylaxis hold Lovenox Awaiting improvement on Hyponatremia for SNF discharge Subjective Date/time seen: 05/03/24 12:25 Interval history: Discussed the case with Nephrology. We will discontinue the fluid restriction. Will reduce the sodium tablet from t.i.d. to b.i.d. and continue with the Lasix 10 b.i.d. will decrease the interval monitoring of sodium. In the event of sodium stabilization patient will be likely discharged tomorrow. Review of Systems Review of Systems: 12 systems were reviewed and are negative except for as per HPI. Exam Narrative: General: Mildly ill-appearing female in the semi-Siegel position in bed. Weight: 90.9 kg. BMI: 37.9. HEENT: PERRL, EOMI. Sclera anicteric. Tacky mucous membranes. Neck: Supple. No midline vertebral tenderness. Respiratory: Respirations are nonlabored. Lung sounds are a bit diminished with faint expiratory wheezing. Cardiovascular: Tachycardic with normal S1-S2. Gastrointestinal: Abdomen is soft and nondistended with positive bowel sounds. She is tender to palpation over the left side of the abdomen. No guarding or rebound tenderness. Equivocal left-sided CVA tenderness. Skin: Warm and dry. No rash or lesions on limited exam. Extremities: No cyanosis, clubbing, or right lower extremity edema. Status post left iymnn-ntn-humo amputation. Neurological: Alert. Cranial nerves 2-12 are grossly intact. Generally weak without gross focal deficits. Psychiatric: Cooperative with appropriate mood and flat affect. Objective Data Vital Signs Vital Signs: Vital Signs - 24 hr 05/02/24 14:00 05/02/24 20:22 05/02/24 20:39 Temperature 96.6 F L 98.5 F Pulse Rate 77 96 66 Respiratory Rate 18 16 18 Blood Pressure 148/56 H 172/64 H Pulse Oximetry 98 94 Oxygen Delivery Fraction of Inspired Oxygen 05/02/24 20:00 05/03/24 05:35 05/03/24 07:40 Temperature 97.4 F L Pulse Rate 72 Respiratory Rate 16 Blood Pressure 155/73 H Pulse Oximetry 97 94 Oxygen Delivery Room Air Room Air Fraction of Inspired Oxygen 21 05/03/24 07:40 05/03/24 08:54 Temperature Pulse Rate 73 Respiratory Rate 18 Blood Pressure Pulse Oximetry Oxygen Delivery Room Air Fraction of Inspired Oxygen Intake/Output Intake/Output: Intake & Output 04/30/24 05/01/24 05/02/24 05/03/24 23:59 23:59 23:59 23:59 Intake Total 250 838 694 Output Total 8471 607 4060 300 [facility]1650 -137 -356 -300 Meds/Results Medications: Active Medications Generic Name Dose Route Start Last Admin Trade Name Freq PRN Reason Stop Dose Admin Acetaminophen 650 mg 04/23/24 18:24 04/28/24 03:27 Acetaminophen 325 Mg Tablet PO 650 mg Q4H PRN Administration Mild Pain (1-3) or Fever Albuterol 1 puff 04/23/24 20:53 Albuterol Sulfate (*Sp) Aerosol 1 Puff INHALATION DAILY PRN sob/wheezing Amlodipine B
--- NOTE | 2024-05-03 12:47 | P.PNNP_ITS ---
Progress Note: A&P Assessment and Plan (1) Hyponatremia: Code(s): E87.1 - Hypo-osmolality and hyponatremia Status: Acute Assessment and Plan: * improvement noted * acute on chronic * present as far back as 2019 * fluctuates to extremes -- anywhere from 122 - 136mmol/L * risk factors for low sodium: * chronic respiratory failure * asthma * SANTI * chronic pain * narcotics * PPI use * diuretic use * evaluation to date noted: * TSH and T3 low, T4 okay * cortisol okay * urine electrolytes non-prerenal * CXR okay * SPEP/UPEP and serum/urine osmo pending * on low dose lasix with salt tabs as well as fluid restriction * follow trend of repeat sodium levels (2) Urinary tract infection: Code(s): N39.0 - Urinary tract infection, site not specified Status: Acute Assessment and Plan: * admission UA suggestive * urine culture with Klebsiella * on antibiotics (3) Colitis: Code(s): K52.9 - Noninfective gastroenteritis and colitis, unspecified Status: Acute Assessment and Plan: * as suggested by CT imaging * complicated by hematochezia (but this has resolved) * H/H stable * GI following (4) Status post fall: Code(s): Z91.81 - History of falling Status: Acute Assessment and Plan: * as note by admission history * no fracture or acute injuries * PT/OT as tolerated Not opposed to discharge from renal perspective if otherwise medically stable. Will continue to follow. Subjective Date/time seen: 05/03/24 12:47 Interval history: Follow-up for acute on chronic hyponatremia. Exam Narrative: General: elderly female in NAD Heart: normal S1 and S2; no rub Lungs: diminished at bases Abdomen: soft, nontender, nondistended, positive bowel sounds Extremities: no cyanosis or clubbing; no edema; s/p left AKA Skin: warm and dry Objective Data Vital Signs Vital Signs: Vital Signs Temp Pulse Resp BP Pulse Ox O2 Del Method FiO2 05/03/24 08:54 Room Air 05/03/24 07:40 73 18 05/03/24 07:40 94 Room Air 21 05/03/24 05:35 97.4 F L 72 16 155/73 H 97 05/02/24 20:00 Room Air 10/08/24 20:39 66 18 05/02/24 20:22 98.5 F 96 16 172/64 H 94 05/02/24 14:00 96.6 F L 77 18 148/56 H 98 Intake/Output Intake/Output: Intake & Output 04/30/24 05/01/24 05/02/24 05/03/24 23:59 23:59 23:59 23:59 Intake Total 250 838 694 120 Output Total 0029 997 5063 300 [facility] -1650 -137 -356 -180 Meds/Results Medications: Active Medications Generic Name Dose Route Start Last Admin Trade Name Freq PRN Reason Stop Dose Admin Acetaminophen 650 mg 04/23/24 18:24 04/28/24 03:27 Acetaminophen 325 Mg Tablet PO 650 mg Q4H PRN Administration Mild Pain (1-3) or Fever Albuterol 1 puff 04/23/24 20:53 Albuterol Sulfate (*Sp) Aerosol 1 Puff INHALATION DAILY PRN sob/wheezing Amlodipine Besylate 10 mg 04/24/24 09:00 05/03/24 08:54 Amlodipine Besylate 10 Mg Tablet PO 10 mg D
--- NOTE | 2024-05-03 12:47 | PM.PNNEP ---
Progress Note: A&P Assessment and Plan (1) Hyponatremia: Code(s): E87.1 - Hypo-osmolality and hyponatremia Status: Acute Assessment and Plan: improvement noted acute on chronic present as far back as 2019 fluctuates to extremes -- anywhere from 122 - 136mmol/L risk factors for low sodium: chronic respiratory failure asthma SANTI chronic pain narcotics PPI use diuretic use evaluation to date noted: TSH and T3 low, T4 okay cortisol okay urine electrolytes non-prerenal CXR okay SPEP/UPEP and serum/urine osmo pending on low dose lasix with salt tabs as well as fluid restriction follow trend of repeat sodium levels (2) Urinary tract infection: Code(s): N39.0 - Urinary tract infection, site not specified Status: Acute Assessment and Plan: admission UA suggestive urine culture with Klebsiella on antibiotics (3) Colitis: Code(s): K52.9 - Noninfective gastroenteritis and colitis, unspecified Status: Acute Assessment and Plan: as suggested by CT imaging complicated by hematochezia (but this has resolved) H/H stable GI following (4) Status post fall: Code(s): Z91.81 - History of falling Status: Acute Assessment and Plan: as note by admission history no fracture or acute injuries PT/OT as tolerated Not opposed to discharge from renal perspective if otherwise medically stable. Will continue to follow. Subjective Date/time seen: 05/03/24 12:47 Interval history: Follow-up for acute on chronic hyponatremia. Exam Narrative: General: elderly female in NAD Heart: normal S1 and S2; no rub Lungs: diminished at bases Abdomen: soft, nontender, nondistended, positive bowel sounds Extremities: no cyanosis or clubbing; no edema; s/p left AKA Skin: warm and dry Objective Data Vital Signs Vital Signs: Vital Signs Temp Pulse Resp BP Pulse Ox O2 Del Method FiO2 05/03/24 08:54 Room Air 05/03/24 07:40 73 18 05/03/24 07:40 94 Room Air 21 05/03/24 05:35 97.4 F L 72 16 155/73 H 97 05/02/24 20:00 Room Air 05/02/24 20:39 66 18 05/02/24 20:22 98.5 F 96 16 172/64 H 94 05/02/24 14:00 96.6 F L 77 18 148/56 H 98 Intake/Output Intake/Output: Intake & Output 04/30/24 05/01/24 05/02/24 05/03/24 23:59 23:59 23:59 23:59 Intake Total 250 838 694 120 Output Total 8346 719 6673 300 Balance -1650 -137 -356 -180 Meds/Results Medications: Active Medications Generic Name Dose Route Start Last Admin Trade Name Freq PRN Reason Stop Dose Admin Acetaminophen 650 mg 04/23/24 18:24 04/28/24 03:27 Acetaminophen 325 Mg Tablet PO 650 mg Q4H PRN Administration Mild Pain (1-3) or Fever Albuterol 1 puff 04/23/24 20:53 Albuterol Sulfate (*Sp) Aerosol 1 Puff INHALATION DAILY PRN sob/wheezing Amlodipine Besylate 10 mg 04/24/24 09:00 05/03/24 08:54 Amlodipine Besylate 10 Mg Tablet PO 10 mg DAILY KELIN Administration Atorvastatin Calcium 10 mg 04/23/24 21:00 05/02/24 21:09 Atorvastatin 10 Mg Tablet PO 10 mg HS KELIN Administration Baclofen 10 mg 04/24/24 09:00 05/03/24 12:23 Baclofen 10 Mg Tablet PO 10 mg TID KELIN Administration Bisacodyl 10 mg 04/23/24 20:53 Bisacodyl 5 Mg Tablet Ec PO HS PRN Constipation Docusate Sodium 100 mg 04/27/24 09:00 05/03/24 08:54 Docusate Sodium 100 Mg Capsule PO 100 mg QAM KELIN Administration Enoxaparin Sodium 40 mg 04/26/24 09:00 04/27/24 09:22 Enoxaparin 40 Mg/0.4 Ml Syringe SUB-Q 40 mg DAILY KELIN Administration Famciclovir 250 mg 04/23/24 21:00 05/03/24 08:54 Famciclovir 250 Mg Tablet PO 250 mg Q12H KELIN Administration Fluticasone Propionate 2 spray 04/24/24 09:00 05/03/24 08:54 Fluticasone Propionate 0.05% Na Spr 16 Gm Btl (*Bkc) NASAL 2 spray DAILY KELIN Administra
[2024-05-03] MEDS: ONDANSETRON HCL ODT 4 MG TABLET PO (13:03)
[2024-05-03] MEDS: ATORVASTATIN 10 MG TABLET PO (21:24)
[2024-05-04] MEDS: oxyCODONE HCL (*CRX) 5 MG TAB IR PO ×4 (02:30→18:45)
[2024-05-04] MEDS: LORazepam (*CRX) 1 MG TABLET PO ×4 (02:30→20:29)
[2024-05-04] MEDS: ONDANSETRON HCL ODT 4 MG TABLET PO ×2 (03:41→14:43)
[2024-05-04 06:00] VITALS: BP 148/68; PULSE 65; RESP 12; TEMP 36.1; O2SAT 100
[2024-05-04 06:57] LABS: Hemoglobin 10.7 g/dL (12.0-15.0); Mean Corpuscular HGB Conc 33.4 g/dl (32-36); Mean Corpuscular Volume 98.8 fl (80-100); Mean Platelet Volume 9.6 fl (7.4-10.4); Platelet Count Result 289 k/mm3 (150-375); Red Blood Count 3.24 M/mm3 (4.2-5.4); Red Cell Distribution Width 12.5 % (11.5-14.5); White Blood Count 10.3 K/mm3 (4.5-10.0)
[2024-05-04 07:07] LABS: Anion Gap 6 mmol/L (4-12); Blood Urea Nitrogen 18 mg/dL (7-17); Calcium 7.9 mg/dL (8.4-10.2); Carbon Dioxide 28 mmol/L (22-30); Chloride 96 mmol/L (98-107); Estimated CRCL calculation 65 ml/min; Estimated Glomerular Filt Rate > 60; Glucose 110 mg/dL (65-110); Potassium 3.9 mmol/L (3.4-5.0); Sodium 130 mmol/L (137-145)
[2024-05-04] MEDS: FLUTICASONE/SALMETEROL 115-21 MCG INHALER 1 PUFF 2 PUFF INHALATION (07:59)
[2024-05-04 08:00] VITALS: O2SAT 96
[2024-05-04] MEDS: SODIUM CHLORIDE 1 GM TABLET PO ×3 (09:32→18:45)
[2024-05-04] MEDS: VITAMIN E 400 UNIT CAPSULE 800 UNIT PO (09:32)
[2024-05-04] MEDS: LOSARTAN POTASSIUM 100 MG TABLET PO (09:32)
[2024-05-04] MEDS: PRIMIDONE 50 MG TABLET 200 MG PO ×2 (09:32→20:30)
[2024-05-04] MEDS: FUROSEMIDE 10 MG TABLET PO ×3 (09:33→18:45)
[2024-05-04] MEDS: MAGNESIUM 13.5 MG TABLET (250 MG MAG GLUCONATE) PO (09:33)
[2024-05-04] MEDS: VITAMIN B COMPLEX CAPSULE 1 CAP PO ×2 (09:33→18:45)
[2024-05-04] MEDS: PANTOPRAZOLE 40 MG TABLET PO (09:33)
[2024-05-04] MEDS: amLODIPine BESYLATE 10 MG TABLET PO (09:33)
[2024-05-04 09:34] VITALS: PULSE 72
[2024-05-04] MEDS: DOCUSATE SODIUM 100 MG CAPSULE PO (09:34)
[2024-05-04] MEDS: METOPROLOL TARTRATE 50 MG TAB 100 MG PO ×2 (09:34→20:30)
[2024-05-04] MEDS: MEMANTINE 5 MG TABLET PO ×2 (09:34→18:45)
[2024-05-04] MEDS: BACLOFEN 10 MG TABLET PO ×3 (09:34→18:45)
[2024-05-04] MEDS: CHOLECALCIFEROL 400 UNITS TABLET (VIT D) PO (09:35)
[2024-05-04] MEDS: FLUTICASONE PROPIONATE 0.05% NA SPR 16 GM BTL (*BKC) 2 SPRAY NASAL (09:35)
--- NOTE | 2024-05-04 09:35 | PCNWS ---
Weekly nutritional screen. Patient is tolerating current Regular diet with adequate intake at 100% all meals. No weight loss reported. No nutritional recommendations at this time.
[2024-05-04 14:00] VITALS: BP 152/65; PULSE 80; RESP 12; TEMP 36.1; O2SAT 98
[2024-05-04] MEDS: LIDOCAINE 5% PATCH 1 PATCH TRANSDERM (14:45)
--- NOTE | 2024-05-04 14:52 | PM.DS ---
DS: Admitting Diagnosis Discharge Date 05/04/2024 Admitting Diagnosis Nausea and diarrhea. DS: Summary Hospital Course Hospital Course: This is a 73-year-old female with chronic respiratory failure on home oxygen, asthma, obstructive sleep apnea, hypertension, hyperlipidemia, anemia, depression, anxiety, and other comorbidities who presented to the emergency department via EMS for evaluation of nausea and diarrhea. The patient provides the following history. She had too numerous to count is of watery, brown diarrhea over the course of and Wednesday. On Wednesday night she began having troubles with urinary incontinence which is unusual for her. She has been feeling a bit weak since that time. This morning she lost her balance while on the toilet and fell back, striking her head and low back on the bathtub. She used her [email or web address] Alert to call for help and was brought in for evaluation. At the time my evaluation she is complaining of pain in the mid low back and generalized malaise. She denies fever, abdominal pain (noticeably tender to palpation over the left side of the abdomen), dysuria, hematuria, syncope, near syncope, chest pain, cough, shortness of breath, and blood or mucus in the stool. No recent travel, sick contacts, or antibiotic use. In the ED: She was afebrile on arrival with stable blood pressures. Labs are significant for a WBC count of 13.3, hemoglobin 12.4, platelet 144, sodium 127, chloride 92, creatinine 0.70. Urinalysis was positive for nitrates, 1+ leukocyte esterase, 11 to 20 WBC, and 4+ bacteria. She tested negative for influenza, RSV, and COVID. Chest x-ray was negative. She was given a L of normal saline and 1 g ceftriaxone and she is being admitted in this setting for further treatment. During the hospitalization patient was treated for UTI and the patient developed the hyponatremia. Initially patient was treated with a fluid restriction and sodium tablets 3 times a day and Lasix 2 times a day. Today her sodium is 130 upon discharge we advised her to take 1 mg sodium tabs 2 times a day and Lasix 10 mg 2 times a day. Patient does not need any fluid restriction. Advised to follow-up with the post closing specialist or the PCP in regards to continuation of the sodium tablet and the Lasix. Patient has been transferred to rehab center Time Spent with Patient Time attestation: Total time spent providing and/or coordinating discharge services: DS: Data Data Completed and Pending Labs on day of discharge: Labs from last 24 hours 05/04/24 04/28/24 06:43 12:06 WBC 10.3 H RBC 3.24 L Hgb 10.7 L Hct 32.0 L MCV 98.8 MCH 33.0 MCHC 33.4 RDW 12.5 Plt Count 289 MPV 9.6 Sodium 130 L Potassium 3.9 Chloride 96 L Carbon Dioxide 28 Anion Gap 6 BUN 18 H Creatinine 0.70 Estim Creat Clear Calc 65 Estimated GFR > 60 Glucose 110 Serum Osmolality 255 L Calcium 7.9 L Discharge Plan Discharge Attending physician on discharge: Shabbir Zayas Consulting providers: Allen Ramirez; Xi Rodgers Discharging Clinician: Shabbir Zayas Anticipated Discharge Date/Time: 05/04/24 14:58 Patient Disposition: Inpatient Rehab Facility Activity: as tolerated Diet: regular Discharge Instructions: Check Na if possible in a week . Currently advised no need of fluid restriction. Continue Na tab 2 times a day and Lasix 10 mg BID Patient Instructions: Pain Management (DC) Stand Alone Forms: General Discharge Information Follow-up/Referrals: Xi Rodgers MD [Physician] - 1 Week (Check Na if possible in a week . Currently advised no need of fluid restriction. Continue Na tab 2 times a day and Lasix 10 mg BID) Allen Ramirez MD [Physician] - 1 Week (plan is colonoscopy in 6-8 weeks) Discharge Medications: New sodium chloride 1,000 mg tablet,soluble 1,000 mg PO BID Qty: 60 0RF furosemide [Lasix] 20 mg tablet 10 mg PO BID Qty: 60 0RF
[2024-05-04 16:10] LABS: SARS-CoV-2 RNA PCR Negative (Negative)
[2024-05-04] MEDS: ATORVASTATIN 10 MG TABLET PO (20:29)
[2024-05-04 20:30] VITALS: PULSE 90
[2024-05-04 20:44] VITALS: BP 170/84; PULSE 90; RESP 20; TEMP 36.3; O2SAT 100
== END 2024-05-04 20:49 | DRG 690 ==
LOC: ANHED 17:55 → ANH3MEDSUR 18:44
PROVIDERS: Internal Medicine; Internal Medicine Nephrology; Physician Assistant; Admitting Provider Internal Medicine; Emergency Provider Emergency Medicine; PCP Internal Medicine; Visit Provider General Practice
DX: N39.0 Urinary tract infection, site not specified (principal); E87.1 Hypo-osmolality and hyponatremia; J96.11 Chronic respiratory failure with hypoxia; K92.2 Gastrointestinal hemorrhage, unspecified; B96.1 Klebsiella pneumoniae [K. pneumoniae] as the cause of diseases classified elsewhere; E86.0 Dehydration; G47.33 Obstructive sleep apnea (adult) (pediatric); E78.5 Hyperlipidemia, unspecified; D64.9 Anemia, unspecified; I10 Essential (primary) hypertension; J44.9 Chronic obstructive pulmonary disease, unspecified; R00.0 Tachycardia, unspecified; F41.9 Anxiety disorder, unspecified; F31.9 Bipolar disorder, unspecified; K52.9 Noninfective gastroenteritis and colitis, unspecified; K59.00 Constipation, unspecified; K76.0 Fatty (change of) liver, not elsewhere classified; R13.10 Dysphagia, unspecified; K21.9 Gastro-esophageal reflux disease without esophagitis; W18.11XA Fall from or off toilet without subsequent striking against object, initial encounter; G40.909 Epilepsy, unspecified, not intractable, without status epilepticus; Z99.81 Dependence on supplemental oxygen; Z11.52 Encounter for screening for COVID-19; Z90.49 Acquired absence of other specified parts of digestive tract; Z90.710 Acquired absence of both cervix and uterus; Z96.652 Presence of left artificial knee joint; Z96.611 Presence of right artificial shoulder joint; Z89.612 Acquired absence of left leg above knee; Z86.0100 Personal history of colon polyps, unspecified
CPT/HCPCS: 36415; 70450; 71045; 72125; 72128; 72131; 73521; 73590; 74176; 80048; 80053; 81001; 81050; 82533; 82570; 83605; 83735; 83930; 83935; 84155; 84156; 84165; 84166; 84295; 84300; 84439; 84443; 84480; 84540; 85025; 85027; 85055; 87040; 87077; 87086; 87088; 87181; 87186; 87635; 87637; 93005; 94640; 96361; 96365; 96372; 96375; 96376; 97110; 97112; 97161; 97165; 97530; 97535; 99285; A9270; G0378; J0696; J1650; J2405; J3475; J7030

== ENCOUNTER 2024-08-06 06:22 | Inpatient (IN) | payer MEDICARE, MEDICAID, SELFPAY ==
[2024-08-06] VITALS (39 sets, daily range): BP systolic 118–171; BP diastolic 52–80; PULSE 86–115; RESP 11–21; TEMP 37–37.6; O2SAT 91–100
--- NOTE | ~2024-08-06 | CT_ITS ---
History: Confusion PROCEDURE: CT head without contrast. COMPARISON: 04/23/2024 TECHNIQUE: Axial imaging of the head performed from the skull base to the vertex without IV contrast. Sagittal a nd coronal reformations obtained. DLP: 984 mGy-cm FINDINGS: The ventricles are enlarged. The dilatation of the ventricles is proportional to the degree of sulcal prominence, far advanced for patient of this age. Bifrontal atrophy is also noted. There is no mass, mass effect or midline shift. There is no abnormal extra-axial fluid collection or intracranial hemorrhage. Visualized paranasal sinuses are clear. The mastoid air cells are well aerated. No acute displaced fractures within the overlying cranium. Impression: No acute intracranial hemorrhage or suspicious mass effect. Ventricular dilatation and bifrontal atrophy, far advanced for patient of this age but unchanged dati ng back to 04/23/2024. Reviewed, dictated and finalized at location A. T WORKER Impression: No acute intracranial hemorrhage or suspicious mass effect. Ventricular dilatation and bifrontal atrophy, far advanced for patient of this age but unchanged dating back to 04/23/2024.
--- NOTE | ~2024-08-06 | CT_ITS ---
EXAMINATION: CT abdomen pelvis wo con DATE: 08/06/2024 08:44 INDICATION: Left lower quadrant abdominal pain TECHNIQUE: Computed tomography (CT) of the abdomen and pelvis was performed without intravenous contr ast. Automated exposure control and iterative reconstruction technique were employed. Exam dose: 135 3.67 mGy-cm total exam DLP. COMPARISON: 04/23/2024 CT abdomen pelvis FINDINGS: There is patchy primarily dependent right lower lobe infiltrate or atelectasis and prominen t patchy consolidation of the left lower lobe. Borderline heart size. Coronary artery calcifications. No pericardial or pleural effusion. Liver, gallbladder, bile ducts, pancreas, pancreatic duct and spleen are unremarkable. Normal morphology of the adrenal glands. No renal mass lesion or hydronephrosis. There is a pinpoint nonobstructing lower pole left renal calc ulus. The urinary bladder is unremarkable. Status post hysterectomy. There is atherosclerotic calcification of the abdominal aorta and calcification at the origins of the celiac and particularly the superior mesenteric and renal arteries. No abdominal aortic aneurysm. No intraperitoneal or retroperitoneal or pelvic mass lesion or adenopathy or ascites. No suspicious osteolytic or osteoblastic lesions. IMPRESSION: Prominent patchy consolidation of left lower lobe consistent with pneumonia Mild dependent right lower lobe infiltrate or atelectasis Borderline heart size Pinpoint nonobstructing lower pole left renal calculus Status post hysterectomy Reviewed, dictated and finalized at Location [facility]. Reviewed, dictated and finalized at location A. ICAL STOCK INSPECTOR
--- NOTE | ~2024-08-06 | XR_ITS ---
XR chest 1V portable DATE: 08/06/2024 08:58 INDICATION: Altered mental state TECHNIQUE: Portable upright AP chest on 08/06/2024 at 0855 hours COMPARISON: 04/28/2024 portable AP chest at 1543 hours FINDINGS: Heart size is likely within normal range considering medications associated with AP project ion. Prominent aortic arch calcification, mild aortic unfolding. No hilar or mediastinal enlargement. There is patchy infiltrate in the left mid and lower lung, primarily involving the left lower lobe. There may be slight left pleural effusion. No pulmonary vascular congestion or pneumothorax. Osteopenia. IMPRESSION: Patchy infiltrate of left mid and lower lung, primarily involving left lower lobe, likely due to pneumonia Reviewed, dictated and finalized at location A. R ADJUSTER IMPRESSION: Patchy infiltrate of left mid and lower lung, primarily involving l eft lower lobe, likely due to pneumonia
--- NOTE | 2024-08-06 06:26 | ECG_ITS ---
Test Date: 2024-08-06 06:37:07 Measurements Intervals [place] Rate: 87 P: 40 DC: 184 QRS: -22 QRSD: 101 T: 50 QT: 368 QTc: 445 Interpretive Statements SINUS RHYTHM BORDERLINE LEFT AXIS DEVIATION [QRS AXIS < -20] VOLTAGE CRITERIA FOR LVH [MEETS CRITERIA IN ONE OF: R(aVL), S(V1), R(V5), R(V5/V6)+S(V1)] ABNORMAL ECG Electronically Signed On 08-06-2024 08:40:35 WEB OPERATIONS SPECIALIST by Frederick Zepeda M.D.
[2024-08-06 07:28] LABS: Influenza A QL RT-PCR Negative (Negative); Influenza B QL RT-PCR Negative (Negative); RSV RNA, RT-PCR Negative (Negative); SARS-CoV-2 RNA PCR Negative (Negative)
[2024-08-06 07:28] LABS: Add Urine Microscopic? YES; Appearance Urine Clear (Clear); Bacteria Urine 1+ /hpf; Bilirubin Urine Negative (Negative); Blood Urine Negative (Negative); Color Urine Dark Yellow (Yellow); Glucose Urine UA Negative (Negative); Ketones Urine Trace mg/dL (Negative); Leukocyte Esterase Ur Trace LEU/UL (Negative); Need Manual Microscopic Reviewed; Nitrate Urine Negative (Negative); Non Pathogenic Casts 0-2; Protein Urine 2+ mg/dL (Negative); Specific Grav Ur 1.018 (1.001-1.035); Squamous Epithelial Cell Urine None Seen /hpf (Few); pH Urine 6.5 (5.0-9.0)
[2024-08-06 07:36] LABS: Hematocrit 40.7 % (37.0-47.0); Hemoglobin 13.5 g/dL (12.0-15.0); Mean Corpuscular HGB Conc 33.2 g/dl (32-36); Mean Corpuscular Hemoglobin 31.5 pg (26-34); Mean Corpuscular Volume 94.9 fl (80-100); Mean Platelet Volume 10.7 fl (7.4-10.4); Platelet Count Result 200 k/mm3 (150-375); Red Blood Count 4.29 M/mm3 (4.2-5.4); White Blood Count 28.6 K/mm3 (4.5-10.0)
[2024-08-06 07:50] LABS: INR 1.2
[2024-08-06 07:51] LABS: Partial Thromboplastin Time 37.1 Seconds (22.3-36.8)
[2024-08-06 08:00] LABS: Alanine Aminotransferase 25 U/L (6-35); Albumin Level 3.6 g/dL (3.5-5.1); Alkaline Phosphatase 97 U/L (38-126); Anion Gap 5 mmol/L (4-12); Aspartate Amino Transferase 28 U/L (14-36); Bilirubin,Total 0.7 mg/dL (0.2-1.3); Blood Urea Nitrogen 15 mg/dL (7-17); Calcium 8.6 mg/dL (8.4-10.2); Carbon Dioxide 29 mmol/L (22-30); Chloride 97 mmol/L (98-107); Estimated Glomerular Filt Rate > 60; Glucose 106 mg/dL (65-110); Potassium 4.5 mmol/L (3.4-5.0); Sodium 131 mmol/L (137-145)
[2024-08-06 08:26] LABS: Platelet Estimate Adequate (Adequate)
[2024-08-06 08:27] LABS: Atypical Lymphocytes Present; Band Neutrophils Percent 7 % (0-6); Lymphocytes Absolute Manual 2.57 K/mm3 (1.1-4.5); Lymphocytes Percent Manual 9 % (18-44); Monocytes Absolute Manual 1.14 K/mm3 (0.1-0.90); Monocytes Percent Manual 4 % (3-9); Neutrophils Absolute Manual 24.88 K/mm3 (1.7-7.2); Neutrophils Percent Manual 80 % (46-73); Schistocytes None Seen; Total Cells Counted 100
--- NOTE | 2024-08-06 08:40 | ED_ITS ---
HPI - General Adult General Chief complaint: Altered Mental Status Stated complaint: AMS Time Seen by Provider: 08/06/24 07:00 History of Present Illness HPI narrative: Patient is a 73-year-old female who presents ER with reports of altered mental status. Patient oriented x3 at this time. She reports left lower quadrant abdominal pain. Has history of diverticulitis. Denies fever. No constipation or diarrhea. Patient does look fatigued and slow to answer questions. Related Data Home Medications ?Medication ?Instructions ?Recorded ?Confirmed ?Last Taken ?Type atorvastatin 10 mg tablet 10 mg PO HS 09/09/19 04/23/24 Unknown History cholecalciferol (vitamin D3) 10 400 unit PO DAILY 09/09/19 04/23/24 Unknown History mcg (400 unit) tablet famciclovir 250 mg tablet 250 mg PO Q12H 09/09/19 04/23/24 Unknown History fluticasone propionate 50 2 spray intranasal DAILY 09/09/19 04/23/24 Unknown History mcg/actuation nasal spray,suspension pantoprazole 40 mg tablet,delayed 40 mg PO DAILY 09/09/19 04/23/24 Unknown History release primidone 50 mg tablet 200 mg PO BID 09/09/19 04/23/24 Unknown History vitamin E 268 mg (400 unit) capsule 800 unit PO DAILY 09/09/19 04/23/24 Unknown History cholecalciferol (vitamin D3) 1,250 1,250 mcg PO WEEKLY 05/31/20 04/23/24 Unknown History mcg (50,000 unit) tablet docusate sodium 100 mg tablet 100 mg PO DAILY PRN Constipation 05/31/20 04/23/24 Unknown History spironolactone 25 mg tablet 25 mg PO DAILY 05/31/20 04/23/24 Unknown History baclofen 10 mg tablet 10 mg PO TID 02/19/21 04/23/24 Unknown History losartan 100 mg tablet 100 mg PO DAILY 02/19/21 04/23/24 Unknown History albuterol sulfate 90 mcg/actuation 1 inh inhalation DAILY PRN 04/23/24 04/23/24 Unknown History aerosol inhaler sob/wheezing amlodipine 10 mg tablet 10 mg PO DAILY 04/23/24 04/23/24 Unknown History bisacodyl 5 mg tablet,delayed 10 mg PO HS PRN Constipation 04/23/24 04/23/24 Unknown History release (Dulcolax (bisacodyl)) budesonide-formoterol HFA 160 2 puff inhalation BID 04/23/24 04/23/24 Unknown History mcg-4.5 mcg/actuation aerosol inhaler cranberry 1,000 mg capsule 30,000 mg PO DAILY 04/23/24 04/23/24 Unknown History ergocalciferol (vitamin D2) 25,000 50,000 unit PO WEEKLY 04/23/24 04/23/24 Unknown History unit capsule guaifenesin 1,200 mg tablet, 1,200 mg PO BID 04/23/24 04/23/24 Unknown History extended release 12 hr (Mucinex) magnesium 1 tablet PO DAILY 04/23/24 04/23/24 Unknown History memantine 5 mg tablet 5 mg PO BID 04/23/24 04/23/24 Unknown History metoprolol tartrate 100 mg tablet 100 mg PO BID 04/23/24 04/23/24 Unknown History nystatin 100,000 unit/gram topical 1 applic topical BID PRN irritation 04/23/24 04/23/24 Unknown History cream ondansetron HCl 4 mg tablet 4 mg PO TID 04/23/24 04/23/24 Unknown History phenazopyridine 100 mg tablet 500 mg PO BID 04/23/24 04/23/24 Unknown History polyethylene glycol 3350 17 17 g PO DAILY PRN Constipation 04/23/24 04/23/24 Unknown History gram/dose oral powder (Miralax) sodium chloride 0.65 % nasal spray 2 spray intranasal PRN PRN 04/23/24 04/23/24 Unknown History aerosol Congestion vitamin B complex 1 tablet PO BID 04/23/24 04/23/24 Unknown History Allergies Allergy/AdvReac Type Severity Reaction Status Date / Time Fish Containing Products Allergy Severe Dyspnea / Verified 04/23/24 19:11 SOB Iodinated Contrast Media Allergy Intermediate HIVES, RED Verified 04/27/24 08:14 FACE iodine Allergy Unknown Unknown Verified 04/23/24 19:11 Barbiturates Allergy Unknown Verified 04/23/24 19:11 bupivacaine Allergy Unknown Verified 04/23/24 20:51 diazepam (From Valium) Allergy Unknown Verified 04/23/24 19:11 latex Allergy Unknown Verified 04/23/24 19:11 menthol Allergy Unknown Verified 04/23/24 20:51 Sulfa (Sulfonamide Allergy Unknown Verified 04/23/24 19:11 Antibiotics) thiopental (From Pentothal) Allergy Unknown Verified 04/27/24 08:14 wool Allergy Unknown Verified 04/23/24 20:51 Review of Systems 2 Review of Systems: All systems reviewed & are unremarkable except as noted in HPI and below Constitutional: Constitutional: Reports no additional constitutional complaints ENT: Reports system reviewed and no additional complaints, except as documented Cardiovascular: Cardiovascular: Reports no additional cardiovascular complaints Respiratory: Respiratory: Reports no additional respiratory complaints Gastrointestinal: Gastrointestinal: Reports no additional gastrointestinal complaints PMFSH Past Medical History Medical History (Updated 08/06/24 @ 15:58 by Robert Olvera MD) Kidney stone Chronic anemia Chronic respiratory failure with hypoxia, on home oxygen therapy Bipolar disorder Gastroesophageal reflux disease Hyperlipidemia Hypertension Obstructive sleep apnea intolerant to CPAP Left tibial fracture Chronic hyponatremia Shingles Anxiety Depression Gastroparesis Diverticulitis Asthma Epilepsy no longer on medication Seasonal allergies Surgical History Surgical History History of left above knee amputation History of right shoulder replacement History of cholecystectomy History of left knee replacement History of hysterectomy History of open reduction and internal fixation (ORIF) procedure Left tibia and right ankle. History of appendectomy History of tonsillectomy Family History Family History Mother Suicide Depression Heart disease Hypertension Heart failure Sibling Suicide Father Diabetes mellitus Emphysema lung Social History Social History Social History: Surrogate medical decision maker: Martina Rodney, daughter. Code status: Full code. Smoking status: Never smoker Alcohol intake: never Substance use: never Do You Feel Safe in your Home?: No Lack of Transportation: No Lack of Food: Never True Current Housing: I Have Housing Concerned About Future Housing: No Difficulty Paying Gas/Electric Bills: No Difficulty Paying for Meds: No Currently Unemployed: No Education: High School Diploma/GED Difficulty w/ Childcare or Family Care: No Living arrangements: senior living [facility] Occupation/Education: retired Spiritual care concerns: No Agree to blood products: No Exam 2 Narrative: GENERAL: Ill-appearing, well-nourished, and in no acute distress. HEAD: Normocephalic, atraumatic. ENT: Mucous membranes moist. NECK: Supple. CHEST: Clear to auscultation. No respiratory distress. HEART: Regular rate and rhythm. Normal peripheral pulses. ABDOMEN: Soft, TTP in LLQ with guarding, nondistended. EXTREMITIES: Left AKA. Normal right lower extremity. Normal upper extremity strength. SKIN: Warm, dry, no rash. NEURO: Alert and oriented x3. PSYCH: Normal mood and affect. Course Course Emergency Course: Patient resting comfortably. Admit to hospitalist service. New oxygen requirement with pneumonia. No abnormality within the abdomen. Vital Signs Vital signs: Vital Signs Temperature 99.6 F 08/06/24 06:23 Pulse Rate 89 08/06/24 06:23 Respiratory Rate 15 08/06/24 06:23 Blood Pressure 167/68 H 08/06/24 06:23 Oxygen Delivery Room Air 08/06/24 06:23 Temperature 99.6 F 08/06/24 06:23 Pulse Rate 101 H 08/06/24 14:16 Respiratory Rate 16 08/06/24 14:16 Blood Pressure 148/64 H 08/06/24 14:16 Pulse Oximetry 98 08/06/24 14:16 Oxygen Delivery Nasal Cannula 08/06/24 10:40 Oxygen Flow Rate 4 08/06/24 11:14 Medical Decision Making Vital Signs Vital Signs: Vital Signs Temperature 99.6 F 08/06/24 06:23 Pulse Rate 89 08/06/24 06:23 Respiratory Rate 15 08/06/24 06:23 Blood Pressure 167/68 H 08/06/24 06:23 Oxygen Delivery Room Air 08/06/24 06:23 Temperature 99.6 F 08/06/24 06:23 Pulse Rate 101 H 08/06/24 14:16 Respiratory Rate 16 08/06/24 14:16 Blood Pressure 148/64 H 08/06/24 14:16 Pulse Oximetry 98 08/06/24 14:16 Oxygen Delivery Nasal Cannula 08/06/24 10:40 Oxygen Flow Rate 4 08/06/24 11:14 Lab Data 08/06/24 07:29 08/06/24 07:29 Labs: Lab Results 08/06/24 08/06/24 08/06/24 Range/Units 06:47 06:53 07:29 WBC 28.6 H (4.5-10.0) K/mm3 RBC 4.29 (4.2-5.4) M/mm3 Hgb 13.5 (12.0-15.0) g/dL Hct 40.7 (37.0-47.0) % MCV 94.9 (80-100) fl MCH 31.5 (26-34) pg MCHC 33.2 (32-36) g/dl RDW 13.0 (11.5-14.5) % Plt Count 200 (150-375) k/mm3 MPV 10.7 H (7.4-10.4) fl Immature Gran % (Auto) Not Reportable Neut % (Auto) Not Reportable Lymph % (Auto) Not Reportable [place] % (Auto) Not Reportable Eos % (Auto) Not Reportable Baso % (Auto) Not Reportable Lymph # (Auto) Not Reportable [place] # (Auto) Not Reportable Eos # (Auto) Not Reportable Baso # (Auto) Not Reportable Abs Immat Gran (auto) Not Reportable Absolute Neuts (auto) Not Reportable Absolute Nucleated RBC Not Reportable Total Counted 100 Neutrophils % (Manual) 80 H (46-73) % Band Neutrophils % 7 H (0-6) % Lymphocytes % (Manual) 9 L (18-44) % Monocytes % (Manual) 4 (3-9) % Nucleated RBC % Not Reportable Abs Neuts (Manual) 24.88 H (1.7-7.2) K/mm3 Abs Lymphs (Manual) 2.57 (1.1-4.5) K/mm3 Abs Monocytes (Manual) 1.14 H (0.1-0.90) K/mm3 Atypical Lymphocytes Present Platelet Estimate Adequate (Adequate) Schistocytes None seen PT 16.0 H (11.1-14.7) Seconds INR 1.2 APTT 37.1 H (22.3-36.8) Seconds Sodium 131 L (137-145) mmol/L Potassium 4.5 (3.4-5.0) mmol/L Chloride 97 L (98-107) mmol/L Carbon Dioxide 29 (22-30) mmol/L Anion Gap 5 (4-12) mmol/L BUN 15 (7-17) mg/dL Creatinine 0.75 (0.7-1.0) mg/dL Estim Creat Clear Calc Not Reportable Estimated GFR > 60 (59 - ) Glucose 106 (65-110) mg/dL Lactic Acid (0.7-2.0) mmol/L Calcium 8.6 (8.4-10.2) mg/dL Total Bilirubin 0.7 (0.2-1.3) mg/dL AST 28 (14-36) U/L ALT 25 (6-35) U/L Alkaline Phosphatase 97 (38-126) U/L Total Protein 7.0 (6.3-8.2) g/dL Albumin 3.6 (3.5-5.1) g/dL Urine Color Dark yellow (Yellow) Urine Appearance Clear (Clear) Urine pH 6.5 (5.0-9.0) Ur Specific [place] 1.018 (1.001-1.035) Urine Protein 2+ H (Negative) mg/dL Urine Glucose (UA) Negative (Negative) mg/dL Urine Ketones Trace H (Negative) mg/dL Ur Blood (Man) Negative (Negative) Urine Nitrate Negative (Negative) Urine Bilirubin Negative (Negative) Urine Urobilinogen 1.0 (<2.0) mg/dL Add Ur Microanalysis Reviewed Leukocyte Esterase Rfl Trace H (Negative) LEEANNE/UL Urine RBC 6-10 H (0-2) /hpf Urine WBC 11-20 H (0-3) /hpf Ur Squamous Epith Cells None seen (Few) /hpf Urine Bacteria 1+ H /hpf Urine Casts 0-2 Influenza A (RT-PCR) Negative (Negative) Influenza B (RT-PCR) Negative (Negative) RSV (RT-PCR) Negative (Negative) SARS-CoV-2 RNA (RT-PCR) Negative (Negative) 08/06/24 Range/Units 10:17 WBC (4.5-10.0) K/mm3 RBC (4.2-5.4) M/mm3 Hgb (12.0-15.0) g/dL Hct (37.0-47.0) % MCV (80-100) fl MCH (26-34) pg MCHC (32-36) g/dl RDW (11.5-14.5) % Plt Count (150-375) k/mm3 MPV (7.4-10.4) fl Immature Gran % (Auto) Neut % (Auto) Lymph % (Auto) [place] % (Auto) Eos % (Auto) Baso % (Auto) Lymph # (Auto) [place] # (Auto) Eos # (Auto) Baso # (Auto) Abs Immat Gran (auto) Absolute Neuts (auto) Absolute Nucleated RBC Total Counted Neutrophils % (Manual) (46-73) % Band Neutrophils % (0-6) % Lymphocytes % (Manual) (18-44) % Monocytes % (Manual) (3-9) % Nucleated RBC % Abs Neuts (Manual) (1.7-7.2) K/mm3 Abs Lymphs (Manual) (1.1-4.5) K/mm3 Abs Monocytes (Manual) (0.1-0.90) K/mm3 Atypical Lymphocytes Platelet Estimate (Adequate) Schistocytes PT (11.1-14.7) Seconds INR APTT (22.3-36.8) Seconds Sodium (137-145) mmol/L Potassium (3.4-5.0) mmol/L Chloride (98-107) mmol/L Carbon Dioxide (22-30) mmol/L Anion Gap (4-12) mmol/L BUN (7-17) mg/dL Creatinine (0.7-1.0) mg/dL Estim Creat Clear Calc Estimated GFR (59 - ) Glucose (65-110) mg/dL Lactic Acid 1.1 (0.7-2.0) mmol/L Calcium (8.4-10.2) mg/dL Total Bilirubin (0.2-1.3) mg/dL AST (14-36) U/L ALT (6-35) U/L Alkaline Phosphatase (38-126) U/L Total Protein (6.3-8.2) g/dL Albumin (3.5-5.1) g/dL Urine Color (Yellow) Urine Appearance (Clear) Urine pH (5.0-9.0) Ur Specific [place] (1.001-1.035) Urine Protein (Negative) mg/dL Urine Glucose (UA) (Negative) mg/dL Urine Ketones (Negative) mg/dL Ur Blood (Man) (Negative) Urine Nitrate (Negative) Urine Bilirubin (Negative) Urine Urobilinogen (<2.0) mg/dL Add Ur Microanalysis Leukocyte Esterase Rfl (Negative) LEEANNE/UL Urine RBC (0-2) /hpf Urine WBC (0-3) /hpf Ur Squamous Epith Cells (Few) /hpf Urine Bacteria /hpf Urine Casts Influenza A (RT-PCR) (Negative) Influenza B (RT-PCR) (Negative) RSV (RT-PCR) (Negative) SARS-CoV-2 RNA (RT-PCR) (Negative) Imaging Data Radiologist's impression: ITS Impressions Chest X-Ray 08/06/24 09:01 IMPRESSION: Patchy infiltrate of left mid and lower lung, primarily involving left lower lobe, likely due to pneumonia Abdomen/Pelvis CT 08/06/24 09:03 IMPRESSION: Prominent patchy consolidation of left lower lobe consistent with pneumonia Mild dependent right lower lobe infiltrate or atelectasis Borderline heart size Pinpoint nonobstructing lower pole left renal calculus Status post hysterectomy ECG Data EKG #1: ECG completion date: 08/06/24 ECG completion time: 15:57 EKG Interpretation: normal rate, sinus rhythm, no ST changes, normal QT and left axis Discharge Plan Discharge Clinical Impression: Pneumonia, Hypoxia Patient Disposition: Still a Patient Condition: Stable
[2024-08-06] MEDS: SODIUM CHLORIDE 0.9% IV 1,000 ML 999 ML IV CONT (09:16)
[2024-08-06] MEDS: MORPHINE SULFATE (*CRX) 2 MG/ML INJ IV PUSH ×2 (09:17→13:07)
[2024-08-06 10:36] LABS: Lactic Acid Reflex 1.1 mmol/L (0.7-2.0)
[2024-08-06] MEDS: AZITHROMYCIN 500 MG/NS 250 ML 500 MG/250 ML BAG 250 MG IVPB (11:03)
[2024-08-06 11:11] LABS: Alveolar/Arterial O2 Gradient 172.9 mmHg; Base Excess ABG 1.1 mEq/l (+/-2.0); Carboxyhemoglobin 0.5 % THb (0-2.0); Fractional Inspired Oxygen 44 %; HCO3 ABG 26.3 mEq/l (22.0-26.0); Methemoglobin ABG 0.1 %THb (0-1.5); Oxygen Content ABG 16.6 %vol (16.0-22.0); Oxygen Saturation ABG 96.9 % (95.0-100.0); Oxyhemoglobin 96.2 % THb (90.0-100.0); PO2 ABG 90.7 mmHg (80.0-100.0); PO2 FiO2 Ratio Arterial Blood 2.06 %; Reduced Hemoglobin 3.2 %THb (0-5.0); Total Hemoglobin 12.2 g/dL (12.0-18.0); pH ABG 7.394 (7.350-7.450)
[2024-08-06 11:12] LABS: Device NASAL CANNULA; Site Drawn RIGHT BRACHIAL
--- NOTE | 2024-08-06 13:10 | PM.IMHP ---
H&P: HPI History of Present Illness Date/Time: 08/06/24 13:30 Chief Complaint: Altered mental status. Narrative: This is a 73-year-old female with chronic respiratory failure on 4 L home oxygen, asthma, untreated obstructive sleep apnea, hypertension, hyperlipidemia, anemia, depression, anxiety, bipolar disorder, seizure disorder no longer on medications, chronic pain syndrome, and other comorbidities who presented to the emergency department via EMS from [facility] for evaluation of altered mental status. She is able to provide some history however remains confused and some of the following is supplemented via a review of her electronic medical records. She tells me she has not been feeling well since she got the COVID vaccination although she cannot tell me precisely when that occurred. Symptoms include body aches, subjective fever, chills, and poor appetite. She has discomfort in the left side of the abdomen, just below the ribs, which she has a difficult time describing other than that ?it hurts.? She is aware of her confusion, telling me that she is confused by her surrounding and the urine her date of . She denies recent fall, head trauma, sore throat, chest pain, pleuritic pain, shortness of breath, cough, diarrhea, and dysuria. She is unaware of any sick contacts. In the ED: She was afebrile on arrival with stable vital signs. Labs were significant for WBC count of 28.6 with 7% bands, sodium 131, chloride 97, lactic acid 1.1. Urinalysis was positive for 2+ protein, trace ketones, trace leukocyte esterase, 6 to 10 RBC, 11 to 20 WBC, and 1+ bacteria. She tested negative for influenza, RSV, and COVID. Chest x-ray showed patchy infiltrates in the left lung likely pneumonia. CT of the abdomen pelvis showed prominent patchy consolidation of the left lower lobe consistent with pneumonia and pinpoint nonobstructing lower pole left renal calculus. She received azithromycin and ceftriaxone is being admitted in this setting for further treatment and evaluation. Review of Systems Review of Systems: 12 systems were reviewed and are negative except for as per HPI however limited due to her confusion. [facility] Past Medical History Medical History Kidney stone Chronic anemia Chronic respiratory failure with hypoxia, on home oxygen therapy Bipolar disorder Gastroesophageal reflux disease Hyperlipidemia Hypertension Obstructive sleep apnea intolerant to CPAP Left tibial fracture Chronic hyponatremia Shingles Anxiety Depression Gastroparesis Diverticulitis Asthma Epilepsy no longer on medication Seasonal allergies Surgical History Surgical History History of left above knee amputation History of right shoulder replacement History of cholecystectomy History of left knee replacement History of hysterectomy History of open reduction and internal fixation (ORIF) procedure Left tibia and right ankle. History of appendectomy History of tonsillectomy Family History Family History Mother Suicide Depression Heart disease Hypertension Heart failure Sibling Suicide Father Diabetes mellitus Emphysema lung Social History Social History Social History: Surrogate medical decision maker: Martina Rodney, daughter. Code status: Full code. Smoking status: Never smoker Second hand tobacco smoke exposure: No Alcohol intake: never Substance use: never Do You Feel Safe in your Home?: Yes Lack of Transportation: No Lack of Food: Never True Current Housing: I Have Housing Concerned About Future Housing: No Difficulty Paying Gas/Electric Bills: No Difficulty Paying for Meds: No Currently Unemployed: No Education: High School Diploma/GED Difficulty w/ Childcare or Family Care: No Living arrangements: group home [place] Occupation/Education: retired Spiritual care concerns: No Agree to blood products: No Meds Home Medications and Allergies Home Medications ?Medication ?Instructions ?Recorded ?Confirmed ?Type atorvastatin 10 mg tablet 10 mg PO HS 09/09/19 04/23/24 History cholecalciferol (vitamin D3) 10 400 unit PO DAILY 09/09/19 04/23/24 History mcg (400 unit) tablet famciclovir 250 mg tablet 250 mg PO Q12H 09/09/19 04/23/24 History fluticasone propionate 50 2 spray intranasal DAILY 09/09/19 04/23/24 History mcg/actuation nasal spray,suspension pantoprazole 40 mg tablet,delayed 40 mg PO DAILY 09/09/19 04/23/24 History release primidone 50 mg tablet 200 mg PO BID 09/09/19 04/23/24 History vitamin E 268 mg (400 unit) capsule 800 unit PO DAILY 09/09/19 04/23/24 History cholecalciferol (vitamin D3) 1,250 1,250 mcg PO WEEKLY 05/31/20 04/23/24 History mcg (50,000 unit) tablet docusate sodium 100 mg tablet 100 mg PO DAILY PRN Constipation 05/31/20 04/23/24 History spironolactone 25 mg tablet 25 mg PO DAILY 05/31/20 04/23/24 History baclofen 10 mg tablet 10 mg PO TID 02/19/21 04/23/24 History losartan 100 mg tablet 100 mg PO DAILY 02/19/21 04/23/24 History albuterol sulfate 90 mcg/actuation 1 inh inhalation DAILY PRN 04/23/24 04/23/24 History aerosol inhaler sob/wheezing amlodipine 10 mg tablet 10 mg PO DAILY 04/23/24 04/23/24 History bisacodyl 5 mg tablet,delayed 10 mg PO HS PRN Constipation 04/23/24 04/23/24 History release (Dulcolax (bisacodyl)) budesonide-formoterol HFA 160 2 puff inhalation BID 04/23/24 04/23/24 History mcg-4.5 mcg/actuation aerosol inhaler cranberry 1,000 mg capsule 30,000 mg PO DAILY 04/23/24 04/23/24 History ergocalciferol (vitamin D2) 25,000 50,000 unit PO WEEKLY 04/23/24 04/23/24 History unit capsule guaifenesin 1,200 mg tablet, 1,200 mg PO BID 04/23/24 04/23/24 History extended release 12 hr (Mucinex) magnesium 1 tablet PO DAILY 04/23/24 04/23/24 History memantine 5 mg tablet 5 mg PO BID 04/23/24 04/23/24 History metoprolol tartrate 100 mg tablet 100 mg PO BID 04/23/24 04/23/24 History nystatin 100,000 unit/gram topical 1 applic topical BID PRN irritation 04/23/24 04/23/24 History cream ondansetron HCl 4 mg tablet 4 mg PO TID 04/23/24 04/23/24 History phenazopyridine 100 mg tablet 500 mg PO BID 04/23/24 04/23/24 History polyethylene glycol 3350 17 17 g PO DAILY PRN Constipation 04/23/24 04/23/24 History gram/dose oral powder (Miralax) sodium chloride 0.65 % nasal spray 2 spray intranasal PRN PRN 04/23/24 04/23/24 History aerosol Congestion vitamin B complex 1 tablet PO BID 04/23/24 04/23/24 History furosemide 20 mg tablet (Lasix) 10 mg (1/2 x 20 mg) PO BID #60 tabs 05/04/24 Rx lorazepam 0.5 mg tablet 1 mg (2 x 0.5 mg) PO Q6H PRN 05/04/24 Rx Anxiety #10 tabs oxycodone 5 mg tablet 5 mg PO Q4-6H PRN Pain #10 tabs 05/04/24 Rx pregabalin 150 mg capsule (Lyrica) 150 mg PO BID #14 caps 05/04/24 Rx sodium chloride 1,000 mg soluble 1,000 mg PO BID #60 tabs 05/04/24 Rx tablet Allergies Allergy/AdvReac Type Severity Reaction Status Date / Time Fish Containing Products Allergy Severe Dyspnea / Verified 04/23/24 19:11 SOB Iodinated Contrast Media Allergy Intermediate HIVES, RED Verified 04/27/24 08:14 FACE iodine Allergy Unknown Unknown Verified 04/23/24 19:11 Barbiturates Allergy Unknown Verified 04/23/24 19:11 bupivacaine Allergy Unknown Verified 04/23/24 20:51 diazepam (From Valium) Allergy Unknown Verified 04/23/24 19:11 latex Allergy Unknown Verified 04/23/24 19:11 menthol Allergy Unknown Verified 04/23/24 20:51 Sulfa (Sulfonamide Allergy Unknown Verified 04/23/24 19:11 Antibiotics) thiopental (From Pentothal) Allergy Unknown Verified 04/27/24 08:14 wool Allergy Unknown Verified 04/23/24 20:51 Vital Signs Vital Signs - 24 hr 08/06/24 06:23 08/06/24 06:29 08/06/24 06:30 Temperature 99.6 F Pulse Rate 89 90 90 Respiratory Rate 15 18 14 Blood Pressure 167/68 H Pulse Oximetry Oxygen Delivery Room Air Oxygen Flow Rate 08/06/24 06:31 08/06/24 06:36 08/06/24 06:36 Temperature Pulse Rate 89 88 Respiratory Rate 21 H Blood Pressure 167/68 H Pulse Oximetry 94 Oxygen Delivery Nasal Cannula Oxygen Flow Rate 5 08/06/24 07:25 08/06/24 07:30 08/06/24 07:31 Temperature Pulse Rate 92 88 89 Respiratory Rate 21 H 20 19 Blood Pressure 143/58 H Pulse Oximetry 94 95 94 Oxygen Delivery Oxygen Flow Rate 08/06/24 07:45 08/06/24 08:00 08/06/24 08:15 Temperature Pulse Rate 86 88 95 Respiratory Rate 19 19 18 Blood Pressure Pulse Oximetry 96 93 96 Oxygen Delivery Oxygen Flow Rate 08/06/24 08:16 08/06/24 08:30 08/06/24 08:45 Temperature Pulse Rate 91 89 Respiratory Rate 20 19 Blood Pressure 164/65 H Pulse Oximetry 92 92 94 Oxygen Delivery Oxygen Flow Rate 08/06/24 09:30 08/06/24 09:45 08/06/24 10:06 Temperature Pulse Rate 92 91 94 Respiratory Rate 17 12 16 Blood Pressure Pulse Oximetry 94 95 94 Oxygen Delivery Oxygen Flow Rate 08/06/24 10:15 08/06/24 10:25 08/06/24 10:25 Temperature Pulse Rate 96 95 94 Respiratory Rate 18 12 11 L Blood Pressure 144/61 H 144/61 H Pulse Oximetry 93 93 93 Oxygen Delivery Oxygen Flow Rate 08/06/24 10:35 08/06/24 10:40 08/06/24 10:45 Temperature Pulse Rate 92 88 Respiratory Rate 15 18 Blood Pressure Pulse Oximetry 94 93 Oxygen Delivery Nasal Cannula Oxygen Flow Rate 5 08/06/24 11:00 08/06/24 11:14 08/06/24 11:15 Temperature Pulse Rate 88 88 Respiratory Rate 17 17 Blood Pressure 118/80 Pulse Oximetry 95 96 94 Oxygen Delivery Oxygen Flow Rate 4 08/06/24 11:16 08/06/24 11:30 Temperature Pulse Rate 92 88 Respiratory Rate 17 16 Blood Pressure 145/58 H Pulse Oximetry 94 94 Oxygen Delivery Oxygen Flow Rate Exam Narrative: General: Ill-appearing female in the semi-Siegel position in bed. Weight: 94.3 kg. BMI: 42.0. HEENT: PERRL, EOMI. Sclera anicteric. Dry mucous membranes. Neck: Supple. No midline vertebral tenderness. Respiratory: Respirations are nonlabored. She is currently on 4.5 L nasal cannula. Lung sounds are diminished at the left base with scattered rales. Cardiovascular: Tachycardic with normal S1-S2. Gastrointestinal: Abdomen is soft, nontender, nondistended with positive bowel sounds. Skin: Warm and dry. No rash or lesions on limited exam. Normal capillary refill. Extremities warm and perfused. Extremities: No cyanosis, clubbing, or right lower extremity edema. Status post left [id number] amputation. Neurological: Alert to name and place. She cannot provide me the current year, her date of , and is somewhat confused regarding situation. Cranial nerves 2-12 are grossly intact. Generally weak without gross focal deficits. Psychiatric: Confused and cooperative. H&P: Results Labs Labs: Short CBC 08/06/24 Range/Units 07:29 WBC 28.6 H (4.5-10.0) K/mm3 Hgb 13.5 (12.0-15.0) g/dL Hct 40.7 (37.0-47.0) % Plt Count 200 (150-375) k/mm3 BMP 08/06/24 07:29 Sodium 131 L Potassium 4.5 Chloride 97 L Carbon Dioxide 29 BUN 15 Creatinine 0.75 Glucose 106 Calcium 8.6 Liver Function 08/06/24 Range/Units 07:29 Total Bilirubin 0.7 (0.2-1.3) mg/dL AST 28 (14-36) U/L ALT 25 (6-35) U/L Alkaline Phosphatase 97 (38-126) U/L Albumin 3.6 (3.5-5.1) g/dL Urine 08/06/24 Range/Units 06:53 Urine Color Dark yellow (Yellow) Urine Appearance Clear (Clear) Urine pH 6.5 (5.0-9.0) Ur Specific [place] 1.018 (1.001-1.035) Urine Protein 2+ H (Negative) mg/dL Urine Glucose (UA) Negative (Negative) mg/dL Impressions Chest X-Ray 08/06/24 09:01 IMPRESSION: 1. Patchy infiltrate of left mid and lower lung, primarily involving left lower lobe, likely due to pneumonia. Abdomen/Pelvis CT 08/06/24 09:03 IMPRESSION: 1. Prominent patchy consolidation of left lower lobe consistent with pneumonia. 2.Mild dependent right lower lobe infiltrate or atelectasis. 3. Borderline heart size. 4. Pinpoint nonobstructing lower pole left renal calculus. Assessment and Plan Assessment and plan (1) Pneumonia: Code(s): J18.9 - Pneumonia, unspecified organism Status: Acute (2) Altered mental status: Code(s): R41.82 - Altered mental status, unspecified Status: Acute (3) Hypertension: Code(s): I10 - Essential (primary) hypertension Status: Acute (4) Chronic respiratory failure with hypoxia, on home oxygen therapy: Code(s): J96.11 - Chronic respiratory failure with hypoxia; Z99.81 - Dependence on supplemental oxygen Status: Acute (5) Chronic hyponatremia: Code(s): E87.1 - Hypo-osmolality and hyponatremia Status: Acute (6) Bacteriuria with pyuria: Code(s): R82.71 - Bacteriuria; R82.81 - Pyuria Status: Acute (7) Polypharmacy: Code(s): Z79.899 - Other longterm (current) drug therapy Status: Acute Plan The patient presented to the emergency department for evaluation of altered mental status as detailed in HPI. Labs, imaging, EKG, and all reports were personally reviewed. The patient remains confused, likely delirium related to underlying infection with likely some component of cognitive deficit as she is on memantine. No gross focal deficits on exam though will check brain CT. Polypharmacy could be playing a factor as well as underlying infection. Chest x-ray and CT of the abdomen and pelvis showed left-sided pneumonia for which she has been started on azithromycin and ceftriaxone. Left-sided pneumonia could be causing referred pain into the left side of the abdomen as no acute intra-abdominal or pelvic process was identified. Chronic hyponatremia stable on review of previous labs. She is not having urinary symptoms but UA was positive for bacteria and 6 to 11 WBC per high-power field; urine cultures pending. Blood pressures were reviewed and they are stable. Her home medications will be reviewed and resumed as appropriate. Findings and treatment plan were discussed with the patient. Questions were solicited and answered to satisfaction. The patient's medical management will be taken over by the hospitalist team in a.m. Quality VTE Prophylaxis VTE prophylaxis: pharmacologic ordered The patient has been admitted under observation status. Hospitalist MIPS Advance Care Plan I have confirmed that the patient's Advanced Care Plan is present, code status is documented, or surrogate decision maker is listed in patient medical record.: Yes Medication Reconciliation I have utilized all available resources to obtain, update and review the patients current medications (includes all prescriptions, OTC, herbals, cannabis, and nutritional supplements).: Yes
[2024-08-06] MEDS: IPRATROPIUM 0.5 MG/ALBUTEROL SULFATE 2.5 MG AMPUL.NEB 3 ML INHALATION ×2 (13:20→19:54)
--- NOTE | 2024-08-06 16:19 | PC.NURSE ---
this rn ordered patient dinner of a heart healthy diet
[2024-08-06] MEDS: HYDROcodone/acetaminophen (*CRX) 5-325 MG TABLET 1 TAB PO ×2 (17:03→22:32)
--- NOTE | 2024-08-06 18:05 | ADMGEN ---
This patient, Celestina Ewing, was admitted to IMU Room 201-01 at approximately 1800. Patient/family oriented to hospital policies and general routines including ID bracelet, bed and alarms, visiting hours, pain management, procedures, bathroom and other care routines, personal items, smoking policy, room service/diet, and visiting hours. Information on how to activate the Rapid Response Team has been discussed. Patient/Family are encouraged to report perceived risks to care and to ask questions if they do not understand what they are told or what they should do.
[2024-08-07] VITALS (28 sets, daily range): BP systolic 140–174; BP diastolic 58–68; PULSE 84–116; RESP 18–20; TEMP 36.6–37.2; O2SAT 93–98
[2024-08-07] LABS: MRSA (PCR) NOT DETECTED (NOT DETECTE)
[2024-08-07] MEDS: METOPROLOL TARTRATE 50 MG TAB 100 MG PO ×3 (00:07→20:37)
[2024-08-07] MEDS: IPRATROPIUM 0.5 MG/ALBUTEROL SULFATE 2.5 MG AMPUL.NEB 3 ML INHALATION ×4 (02:47→20:50)
[2024-08-07 04:53] LABS: Basophils Absolute Auto 0.1 K/mm3 (0.0-0.1); Basophils Percent Auto 0.3 % (0.2-1.2); Eosinophils Absolute Auto 0.4 K/mm3 (0-0.3); Eosinophils Percent Auto 1.7 % (0-4.4); Hemoglobin 11.6 g/dL (12.0-15.0); Immature Granulocyte Absolute 0.31 K/mm3 (0.00-0.031); Immature Granulocyte Percent A 1.4 % (0-0.5); Lymphocytes Absolute Auto 1.19 K/mm3 (0.9-3.2); Lymphocytes Percent Auto 5.5 % (18.3-44.2); Mean Corpuscular HGB Conc 32.2 g/dl (32-36); Mean Corpuscular Hemoglobin 30.5 pg (26-34); Mean Corpuscular Volume 94.7 fl (80-100); Mean Platelet Volume 10.8 fl (7.4-10.4); Monocytes Absolute Auto 1.5 K/mm3 (0.1-0.6); Monocytes Percent Auto 6.8 % (2.6-8.5); Neutrophils Absolute Auto 18.2 K/mm3 (1.3-6.7); Neutrophils Percent Auto 84.3 % (45.5-73.1); Platelet Count Result 200 k/mm3 (150-375); Red Cell Distribution Width 12.7 % (11.5-14.5); White Blood Count 21.6 K/mm3 (4.5-10.0)
[2024-08-07 05:08] LABS: Anion Gap 5 mmol/L (4-12); Blood Urea Nitrogen 15 mg/dL (7-17); Calcium 8.5 mg/dL (8.4-10.2); Carbon Dioxide 25 mmol/L (22-30); Chloride 100 mmol/L (98-107); Estimated Glomerular Filt Rate > 60; Glucose 110 mg/dL (65-110); Magnesium 1.8 mg/dL (1.6-2.3); Potassium 4.4 mmol/L (3.4-5.0); Sodium 130 mmol/L (137-145)
--- NOTE | 2024-08-07 07:16 | P.PNIM_ITS ---
Progress Note: A&P Assessment and Plan (1) Pneumonia: Code(s): J18.9 - Pneumonia, unspecified organism Status: Acute (2) Altered mental status: Code(s): R41.82 - Altered mental status, unspecified Status: Acute (3) Hypertension: Code(s): I10 - Essential (primary) hypertension Status: Acute (4) Chronic respiratory failure with hypoxia, on home oxygen therapy: Code(s): J96.11 - Chronic respiratory failure with hypoxia; Z99.81 - Dependence on supplemental oxygen Status: Acute (5) Chronic hyponatremia: Code(s): E87.1 - Hypo-osmolality and hyponatremia Status: Acute (6) Bacteriuria with pyuria: Code(s): R82.71 - Bacteriuria; R82.81 - Pyuria Status: Acute (7) Polypharmacy: Code(s): Z79.899 - Other care home (current) drug therapy Status: Acute Plan The patient presented to the emergency department for evaluation of altered mental status as detailed in HPI. Labs, imaging, EKG, and all reports were personally reviewed. The patient remains confused, likely delirium related to underlying infection with likely some component of cognitive deficit as she is on memantine. No gross focal deficits on exam though will check brain CT. Polypharmacy could be playing a factor as well as underlying infection. Chest x- ray and CT of the abdomen and pelvis showed left-sided pneumonia for which she has been started on azithromycin and ceftriaxone. Left-sided pneumonia could be causing referred pain into the left side of the abdomen as no acute intra- abdominal or pelvic process was identified. Chronic hyponatremia stable on review of previous labs. She is not having urinary symptoms but UA was positive for bacteria and 6 to 11 WBC per high-power field; urine cultures pending. Blood pressures were reviewed and they are stable. Her home medications will be reviewed and resumed as appropriate. Metabolic encephalopathy possibly due to pneumonia -started on ceftriaxone and azithromycin -monitor cultures -MRSA negative -encourage oral intake Chronic hyponatremia -Sodium 130 -if necessary Cortisol will be measured -Possible due to SIADH and dehydration -Euvolemia Subjective Date/time seen: 08/07/24 07:16 Interval history: 73-year-old female with chronic respiratory failure on 4 L home oxygen, asthma, untreated obstructive sleep apnea, hypertension, hyperlipidemia, anemia, depression, anxiety, bipolar disorder, seizure disorder no longer on medications, chronic pain syndrome, and other comorbidities who presented to the emergency department via EMS from [facility] for evaluation of altered mental status. Labs were significant for WBC count of 28.6 with 7% bands, sodium 131, chloride 97, lactic acid 1.1. Urinalysis was positive for 2+ protein, trace ketones, trace leukocyte esterase, 6 to 10 RBC, 11 to 20 WBC, and 1+ bacteria. She tested negative for influenza, RSV, and COVID. Chest x-ray showed patchy infiltrates in the left lung likely pneumonia. CT of the abdomen pelvis showed prominent patchy consolidation of the left lower lobe consistent with pneumonia and pinpoint nonobstructing lower pole left renal calculus. She received azithromycin and ceftriaxone is being admitted in this setting for further treatment and evaluation. Today during my evaluation patient was doing fine. Will continue the ceftriaxone and azithromycin. Review of Systems Review of Systems: 12 systems were reviewed and are negativ e except for as per HPI however limited due to her confusion. Exam Narrative: General: Ill-appearing female in the semi-Siegel position in bed. Weight: 94.3 kg. BMI: 42.0. HEENT: PERRL, EOMI. Sclera anicteric. Dry mucous membranes. Neck: Supple. No midline vertebral tenderness. Respiratory: Respirations are nonlabored. She is currently on 4.5 L nasal cannula. Lung sounds are diminished at the left base with scattered rales. Cardiovascular: Tachycardic with normal S1-S2. Gastrointestinal: Abdomen is soft, nontender, nondistended with positive bowel sounds. Skin: Warm and dry. No rash or lesions on limited exam. Normal capillary refill. Extremities warm and perfused. Extremities: No cyanosis, clubbing, or right lower extremity edema. Status post left [id number] amputation. Neurological: Alert to name and place. She cannot provide me the current year, her date of , and is somewhat confused regarding situation. Cranial nerves 2-12 are grossly intact. Generally weak without gross focal deficits. Psychiatric: Confused and cooperative. Objective Data Vital Signs Vital Signs: Vital Signs - 24 hr 08/06/24 07:25 08/06/24 07:30 08/06/24 07:31 Temperature Pulse Rate 92 88 89 Respiratory Rate 21 H 20 19 Blood Pressure 143/58 H Pulse Oximetry 94 95 94 Oxygen Delivery Oxygen Flow Rate 08/06/24 07:45 08/06/24 08:00 08/06/24 08:15 Temperature Pulse Rate 86 88 95 Respiratory Rate 19 19 18 Blood Pressure Pulse Oximetry 96 93 96 Oxygen Delivery Oxygen Flow Rate 08/06/24 08:16 08/06/24 08:30 08/06/24 08:45 Temperature Pulse Rate 91 89 Respiratory Rate 20 19 Blood Pressure 164/65 H Pulse Oximetry 92 92 94 Oxygen Delivery Oxygen Flow Rate 08/06/24 09:30 08/06/24 09:45 08/06/24 10:06 Temperature Pulse Rate 92 91 94 Respiratory Rate 17 12 16 Blood Pressure Pulse Oximetry 94 95 94 Oxygen Delivery Oxygen Flow Rate 08/06/24 10:15 08/06/24 10:25 08/06/24 10:25 Temperature Pulse Rate 96 95 94 Respiratory Rate 18 12 11 L Blood Pressure 144/61 H 144/61 H Pulse Oximetry 93 93 93 Oxygen Delivery Oxygen Flow Rate 08/06/24 10:35 08/06/24 10:40 08/06/24 10:45 Temperature Pulse Rate 92 88 Respiratory Rate 15 18 Blood Pressure Pulse Oximetry 94 93 Oxygen Delivery Nasal Cannula Oxygen Flow Rate 5 08/06/24 11:00 08/06/24 11:14 08/06/24 11:15 Temperature Pulse Rate 88 88 Respiratory Rate 17 17 Blood Pressure 118/80 Pulse Oximetry 95 96 94 Oxygen Delivery Oxygen Flow Rate 4 08/06/24 11:16 08/06/24 11:30 08/06/24 12:01 Temperature Pulse Rate 92 88 90 Respiratory Rate 17 16 16 Blood Pressure 145/58 H 135/59 L Pulse Oximetry 94 94 93 Oxygen Delivery Oxygen Flow Rate 08/06/24 12:46 08/06/24 13:20 08/06/24 13:30 Temperature Pulse Rate 98 96 94 Respiratory Rate 19 18 18 Blood Pressure 171/66 H Pulse Oximetry 92 Oxygen Delivery Oxygen Flow Rate 08/06/24 14:16 08/06/24 17:16 08/06/24 18:46 Temperature Pulse Rate 101 H 112 H 112 H Respiratory Rate 16 19 19 Blood Pressure 148/64 H 152/64 H Pulse Oximetry 98 91 91 Oxygen Delivery Nasal Cannula Oxygen Flow Rate 5 08/06/24 19:59 08/06/24 20:00 08/06/24 20:00 Temperature 98.7 F Pulse Rate 104 H 106 H Respiratory Rate 18 16 Blood Pressure 141/62 H Pulse Oximetry 100 95 Oxygen Delivery Nasal Cannula Oxygen Flow Rate 5 08/06/24 20:00 08/06/24 20:08 08/06/24 22:00 Temperature Pulse Rate 106 H 105 H Respiratory Rate 18 Blood Pressure Pulse Oximetry 100 Oxygen Delivery Nasal Cannula Oxygen Flow Rate 3 08/06/24 22:00 08/06/24 23:35 08/07/24 00:00 Temperature 98.6 F Pulse Rate 109 H 115 H Respiratory Rate 18 Blood Pressure 148/52 H Pulse Oximetry 96 93 Oxygen Delivery Nasal Cannula Oxygen Flow Rate 2 08/07/24 00:00 08/07/24 00:07 08/07/24 02:20 Temperature Pulse Rate 116 H 115 H 90 Respiratory Rate Blood Pressure Pulse Oximetry Oxygen Delivery Oxygen Flow Rate 08/07/24 02:48 08/07/24 02:57 08/07/24 03:52 Temperature Pulse Rate 90 93 Respiratory Rate 18 18 Blood Pressure Pulse Oximetry 93 Oxygen Delivery Nasal Cannula Oxygen Flow Rate 2 08/07/24 04:00 08/07/24 04:00 08/07/24 06:00 Temperature 99.0 F Pulse Rate 105 H 97 103 H Respiratory Rate 20 Blood Pressure 153/62 H Pulse Oximetry 96 Oxygen Delivery Oxygen Flow Rate Intake/Output Intake/Output: Intake & Output 08/04/24 08/05/24 08/06/24 08/07/24 23:59 23:59 23:59 23:59 Intake Total 1300 475 Output Total 500 Balance 1300 -25 Meds/Results Medications: Active Medications Generic Name Dose Route Start Last Admin Trade Name Freq PRN Reason Stop Dose Admin Acetaminophen 650 mg 08/06/24 10:57 Acetaminophen 325 Mg Tablet PO Q4H PRN Mild Pain (1-3) or Fever Hydrocodone Bitart/Acetaminophen 1 tab 08/06/24 10:57 08/06/24 22:32 Hydrocodone/Acetaminophen (*Crx) 5-325 Mg Tablet PO 1 tab Q4H PRN Administration Pain Rated 4-6 Albuterol/Ipratropium 3 ml 08/06/24 14:00 08/07/24 02:47 Ipratropium 0.5 Mg/Albuterol Sulfate 2.5 Mg Ampul.Neb 3 Ml INHALATION 3 ml Q6HRT KELIN Administration Amlodipine Besylate 10 mg 08/07/24 09:00 Amlodipine Besylate 10 Mg Tablet PO DAILY [facility] Bisacodyl 10 mg 08/06/24 23:10 Bisacodyl 5 Mg Tablet Ec PO HS PRN Constipation Diclofenac Sodium 1 applic 08/06/24 23:10 Diclofenac Sodium 1% 100 Gm Gel (*Bkc) TOPICAL BID PRN moderate pain (scale score 5-6) Enoxaparin Sodium 40 mg 08/07/24 09:00 Enoxaparin 40 Mg/0.4 Ml Syringe SUB-Q DAILY [facility] Famciclovir 250 mg 08/07/24 09:00 Famciclovir 250 Mg Tablet PO Q12HR [facility] Fluticasone Propionate 2 spray 08/07/24 09:00 Fluticasone Propionate 0.05% Na Spr 16 Gm Btl (*Bkc) NASAL DAILY [facility] Furosemide 10 mg 08/07/24 09:00 Furosemide 10 Mg Tablet PO BID [facility] Guaifenesin 1,200 mg 08/07/24 09:00 Guaifenesin 12 Hr 600 Mg Tabcr PO Q12HR [facility] Ceftriaxone Sodium 1 gm in 50 mls @ 100 mls/hr 08/07/24 09:00 Rocephin 1 Gm/Ns 50 Ml IVPB Q24H [facility] Azithromycin 500 mg in 250 mls @ 250 mls/hr 08/07/24 09:00 Zithromax IVPB Q24H [facility] Isosorbide Mononitrate 30 mg 08/07/24 09:00 Isosorbide Mononitrate 30 Mg Tab.Er.24h PO DAILY [facility] Lidocaine 2 patch 08/07/24 09:00 Lidocaine 5% Patch TOPICAL DAILY [facility] Losartan Potassium 100 mg 08/07/24 09:00 Losartan Potassium 100 Mg Tablet PO DAILY [facility] Memantine 5 mg 08/07/24 09:00 Memantine 5 Mg Tablet PO Q12HR [facility] Metoprolol Tartrate 100 mg 08/06/24 23:15 08/07/24 00:07 Metoprolol Tartrate 50 Mg Tab PO 100 mg Q12HR [facility] Administration Miconazole Nitrate 1 applic 08/06/24 23:24 Miconazole Nitrate 2% Cream 30 Gm Tube TOPICAL BID PRN irritation Pantoprazole Sodium 40 mg 08/07/24 09:00 Pantoprazole 40 Mg Tablet PO DAILY [facility] Pregabalin 150 mg 08/07/24 09:00 Pregabalin (*Crx) 75 Mg Capsule PO BID [facility] Primidone 200 mg 08/07/24 09:00 Primidone 50 Mg Tablet PO BID [facility] Fluticasone/Salmeterol 2 puff 08/07/24 08:00 Fluticasone/Salmeterol 115-21 Mcg Inhaler 1 Puff INHALATION Q12HRT [facility] Sodium Chloride 2 spray 08/06/24 23:10 Saline 0.65% [place] Soln 44 Ml Btl NASAL PRN PRN Congestion Sodium Chloride 1 gm 08/07/24 09:00 Sodium Chloride 1 Gm Tablet PO BID [facility] Spironolactone 25 mg 08/07/24 09:00 Spironolactone 25 Mg Tablet PO DAILY [facility] Vitamin B Complex/Folic Acid 1 cap 08/07/24 09:00 Vitamin B Cmplx/Vit C/Folic Ac 1 Capsule PO QAM [facility] Vitamin D 5,000 units 08/07/24 09:00 Cholecalciferol 5,000 Units Tablet PO DAILY [facility] Vitamin E 800 unit 08/07/24 09:00 Vitamin E 400 Unit Capsule PO DAILY [facility] Radiology Results: ITS Impressions Chest X-Ray 08/06/24 09:01 IMPRESSION: Patchy infiltrate of left mid and lower lung, primarily involving left lower lobe, likely due to pneumonia Abdomen/Pelvis CT 08/06/24 09:03 IMPRESSION: Prominent patchy consolidation of left lower lobe consistent with pneumonia Mild dependent right lower lobe infiltrate or atelectasis Borderline heart size Pinpoint nonobstructing lower pole left renal calculus Status post hysterectomy Head CT 08/06/24 21:50 Impression: No acute intracranial hemorrhage or suspicious mass effect. Ventricular dilatation and bifrontal atrophy, far advanced for patient of this age but unchanged dating back to 04/23/2024. Labs Labs: Laboratory Results - last 24 hr 08/06/24 08/06/24 08/06/24 06:47 06:53 07:29 WBC 28.6 H RBC 4.29 Hgb 13.5 Hct 40.7 MCV 94.9 MCH 31.5 MCHC 33.2 RDW 13.0 Plt Count 200 MPV 10.7 H Immature Gran % (Auto) Not Reportable Neut % (Auto) Not Reportable Lymph % (Auto) Not Reportable [place] % (Auto) Not Reportable Eos % (Auto) Not Reportable Baso % (Auto) Not Reportable Lymph # (Auto) Not Reportable [place] # (Auto) Not Reportable Eos # (Auto) Not Reportable Baso # (Auto) Not Reportable Abs Immat Gran (auto) Not Reportable Absolute Neuts (auto) Not Reportable Absolute Nucleated RBC Not Reportable Total Counted 100 Neutrophils % (Manual) 80 H Band Neutrophils % 7 H Lymphocytes % (Manual) 9 L Monocytes % (Manual) 4 Nucleated RBC % Not Reportable Abs Neuts (Manual) 24.88 H Abs Lymphs (Manual) 2.57 Abs Monocytes (Manual) 1.14 H Atypical Lymphocytes Present Platelet Estimate Adequate Schistocytes None seen PT 16.0 H INR 1.2 APTT 37.1 H Puncture Site ABG pH ABG pCO2 ABG pO2 ABG PO2/FiO2 Ratio ABG HCO3 ABG O2 Saturation ABG O2 Content ABG Base Excess A-a Gradient Oxyhemoglobin Carboxyhemoglobin Methemoglobin Reduced Hemoglobin Total Hemoglobin O2 Delivery Device O2 Liters/Min FiO2 Sodium 131 L Potassium 4.5 Chloride 97 L Carbon Dioxide 29 Anion Gap 5 BUN 15 Creatinine 0.75 Estim Creat Clear Calc Not Reportable Estimated GFR > 60 Glucose 106 Lactic Acid Calcium 8.6 Magnesium Total Bilirubin 0.7 AST 28 ALT 25 Alkaline Phosphatase 97 Total Protein 7.0 Albumin 3.6 Vitamin B12 TSH (Reflex) Urine Color Dark yellow Urine Appearance Clear Urine pH 6.5 Ur Specific [place] 1.018 Urine Protein 2+ H Urine Glucose (UA) Negative Urine Ketones Trace H Ur Blood (Man) Negative Urine Nitrate Negative Urine Bilirubin Negative Urine Urobilinogen 1.0 Add Ur Microanalysis Reviewed Leukocyte Esterase Rfl Trace H Urine RBC 6-10 H Urine WBC 11-20 H Ur Squamous Epith Cells None seen Urine Bacteria 1+ H Urine Casts 0-2 Nasal MRSA (PCR) Influenza A (RT-PCR) Negative Influenza B (RT-PCR) Negative RSV (RT-PCR) Negative SARS-CoV-2 RNA (RT-PCR) Negative 08/06/24 08/06/24 08/06/24 10:17 11:05 22:35 WBC RBC Hgb Hct MCV MCH MCHC RDW Plt Count MPV Immature Gran % (Auto) Neut % (Auto) Lymph % (Auto) [place] % (Auto) Eos % (Auto) Baso % (Auto) Lymph # (Auto) [place] # (Auto) Eos # (Auto) Baso # (Auto) Abs Immat Gran (auto) Absolute Neuts (auto) Absolute Nucleated RBC Total Counted Neutrophils % (Manual) Band Neutrophils % Lymphocytes % (Manual) Monocytes % (Manual) Nucleated RBC % Abs Neuts (Manual) Abs Lymphs (Manual) Abs Monocytes (Manual) Atypical Lymphocytes Platelet Estimate Schistocytes PT INR APTT Puncture Site Right brachial ABG pH 7.394 ABG pCO2 44.0 ABG pO2 90.7 ABG PO2/FiO2 Ratio 2.06 ABG HCO3 26.3 H ABG O2 Saturation 96.9 ABG O2 Content 16.6 ABG Base Excess 1.1 A-a Gradient 172.9 Oxyhemoglobin 96.2 Carboxyhemoglobin 0.5 Methemoglobin 0.1 Reduced Hemoglobin 3.2 Total Hemoglobin 12.2 O2 Delivery Device Nasal cannula O2 Liters/Min 6.0 FiO2 44 Sodium Potassium Chloride Carbon Dioxide Anion Gap BUN Creatinine Estim Creat Clear Calc Estimated GFR Glucose Lactic Acid 1.1 Calcium Magnesium Total Bilirubin AST ALT Alkaline Phosphatase Total Protein Albumin Vitamin B12 TSH (Reflex) Urine Color Urine Appearance Urine pH Ur Specific [place] Urine Protein Urine Glucose (UA) Urine Ketones Ur Blood (Man) Urine Nitrate Urine Bilirubin Urine Urobilinogen Add Ur Microanalysis Leukocyte Esterase Rfl Urine RBC Urine WBC Ur Squamous Epith Cells Urine Bacteria Urine Casts Nasal MRSA (PCR) Not detected Influenza A (RT-PCR) Influenza B (RT-PCR) RSV (RT-PCR) SARS-CoV-2 RNA (RT-PCR) 08/07/24 04:08 WBC 21.6 H RBC 3.80 L Hgb 11.6 L Hct 36.0 L MCV 94.7 MCH 30.5 MCHC 32.2 RDW 12.7 Plt Count 200 MPV 10.8 H Immature Gran % (Auto) 1.4 H Neut % (Auto) 84.3 H Lymph % (Auto) 5.5 L [place] % (Auto) 6.8 Eos % (Auto) 1.7 Baso % (Auto) 0.3 Lymph # (Auto) 1.19 [place] # (Auto) 1.5 H Eos # (Auto) 0.4 H Baso # (Auto) 0.1 Abs Immat Gran (auto) 0.31 H Absolute Neuts (auto) 18.2 H Absolute Nucleated RBC 0.000 Total Counted Neutrophils % (Manual) Band Neutrophils % Lymphocytes % (Manual) Monocytes % (Manual) Nucleated RBC % 0.0 Abs Neuts (Manual) Abs Lymphs (Manual) Abs Monocytes (Manual) Atypical Lymphocytes Platelet Estimate Schistocytes PT INR APTT Puncture Site ABG pH ABG pCO2 ABG pO2 ABG PO2/FiO2 Ratio ABG HCO3 ABG O2 Saturation ABG O2 Content ABG Base Excess A-a Gradient Oxyhemoglobin Carboxyhemoglobin Methemoglobin Reduced Hemoglobin Total Hemoglobin O2 Delivery Device O2 Liters/Min FiO2 Sodium 130 L Potassium 4.4 Chloride 100 Carbon Dioxide 25 Anion Gap 5 BUN 15 Creatinine 0.57 L Estim Creat Clear Calc Not Reportable Estimated GFR > 60 Glucose 110 Lactic Acid Calcium 8.5 Magnesium 1.8 Total Bilirubin AST ALT Alkaline Phosphatase Total Protein Albumin Vitamin B12 890.0 TSH (Reflex) 1.920 Urine Color Urine Appearance Urine pH Ur Specific [place] Urine Protein Urine Glucose (UA) Urine Ketones Ur Blood (Man) Urine Nitrate Urine Bilirubin Urine Urobilinogen Add Ur Microanalysis Leukocyte Esterase Rfl Urine RBC Urine WBC Ur Squamous Epith Cells Urine Bacteria Urine Casts Nasal MRSA (PCR) Influenza A (RT-PCR) Influenza B (RT-PCR) RSV (RT-PCR) SARS-CoV-2 RNA (RT-PCR) Quality VTE Prophylaxis VTE prophylaxis: pharmacologic ordered Hospitalist MIPS Advance Care Plan I have confirmed that the patient's Advanced Care Plan is present, code status is documented, or surrogate decision maker is listed in patient medical record.: Yes Medication Reconciliation I have utilized all available resources to obtain, update and review the patients current medications (includes all prescriptions, OTC, herbals, cannabis, and nutritional supplements).: Yes
[2024-08-07] MEDS: SPIRONOLACTONE 25 MG TABLET PO (09:31)
[2024-08-07] MEDS: PREGABALIN (*CRX) 75 MG CAPSULE 150 MG PO ×2 (09:32→17:09)
[2024-08-07] MEDS: PANTOPRAZOLE 40 MG TABLET PO (09:32)
[2024-08-07] MEDS: guaiFENesin 12 HR 600 MG TABCR 1200 MG PO ×2 (09:33→20:37)
[2024-08-07] MEDS: VITAMIN E 400 UNIT CAPSULE 800 UNIT PO (09:34)
[2024-08-07] MEDS: FAMCICLOVIR 250 MG TABLET PO ×2 (09:35→20:36)
[2024-08-07] MEDS: MEMANTINE 5 MG TABLET PO ×2 (09:35→20:36)
[2024-08-07] MEDS: CHOLECALCIFEROL 5,000 UNITS TABLET 5000 UNITS PO (09:36)
[2024-08-07] MEDS: SODIUM CHLORIDE 1 GM TABLET PO ×2 (09:36→17:08)
[2024-08-07] MEDS: amLODIPine BESYLATE 10 MG TABLET PO (09:37)
[2024-08-07] MEDS: ENOXAPARIN 40 MG/0.4 ML SYRINGE SUB-Q (09:37)
[2024-08-07] MEDS: FLUTICASONE/SALMETEROL 115-21 MCG INHALER 1 PUFF 2 PUFF INHALATION ×2 (09:38→20:52)
[2024-08-07] MEDS: FLUTICASONE PROPIONATE 0.05% NA SPR 16 GM BTL (*BKC) 2 SPRAY NASAL (09:38)
[2024-08-07] MEDS: PRIMIDONE 50 MG TABLET 200 MG PO ×2 (09:41→17:08)
[2024-08-07] MEDS: ISOSORBIDE MONONITRATE 30 MG TAB.ER.24H PO (09:49)
[2024-08-07] MEDS: FUROSEMIDE 10 MG TABLET PO ×2 (09:50→17:08)
[2024-08-07] MEDS: LOSARTAN POTASSIUM 100 MG TABLET PO (09:50)
[2024-08-07] MEDS: VITAMIN B CMPLX/VIT C/FOLIC AC 1 CAPSULE 1 CAP PO (09:51)
[2024-08-07] MEDS: AZITHROMYCIN 500 MG/NS 250 ML 500 MG/250 ML BAG 250 MG IVPB (09:55)
[2024-08-07] MEDS: ONDANSETRON HCL ODT 4 MG TABLET PO (17:09)
[2024-08-07] MEDS: ARTIFICIAL TEARS OPHTH SOLN 15 ML BOTTLE 1 DROP EACH EYE ×2 (17:13→21:20)
[2024-08-07] MEDS: LIDOCAINE 5% PATCH 2 PATCH TOPICAL (20:38)
[2024-08-08] VITALS (28 sets, daily range): BP systolic 122–179; BP diastolic 60–94; PULSE 82–167; RESP 16–20; TEMP 36.5–37.1; O2SAT 92–99
[2024-08-08] MEDS: IPRATROPIUM 0.5 MG/ALBUTEROL SULFATE 2.5 MG AMPUL.NEB 3 ML INHALATION ×2 (02:48→08:02)
[2024-08-08] MEDS: ONDANSETRON HCL ODT 4 MG TABLET PO ×3 (03:33→20:39)
[2024-08-08] MEDS: ARTIFICIAL TEARS OPHTH SOLN 15 ML BOTTLE 1 DROP EACH EYE ×3 (03:33→20:39)
[2024-08-08 05:11] LABS: Hematocrit 32.9 % (37.0-47.0); Mean Corpuscular HGB Conc 33.4 g/dl (32-36); Mean Corpuscular Hemoglobin 31.1 pg (26-34); Mean Corpuscular Volume 92.9 fl (80-100); Mean Platelet Volume 10.5 fl (7.4-10.4); Platelet Count Result 229 k/mm3 (150-375); Red Blood Count 3.54 M/mm3 (4.2-5.4); Red Cell Distribution Width 12.4 % (11.5-14.5); White Blood Count 15.8 K/mm3 (4.5-10.0)
[2024-08-08 05:29] LABS: Alanine Aminotransferase 35 U/L (6-35); Albumin Level 3.2 g/dL (3.5-5.1); Alkaline Phosphatase 108 U/L (38-126); Anion Gap 10 mmol/L (4-12); Aspartate Amino Transferase 47 U/L (14-36); Bilirubin,Total 0.5 mg/dL (0.2-1.3); Blood Urea Nitrogen 9 mg/dL (7-17); Calcium 7.8 mg/dL (8.4-10.2); Carbon Dioxide 24 mmol/L (22-30); Chloride 94 mmol/L (98-107); Estimated Glomerular Filt Rate > 60; Glucose 111 mg/dL (65-110); Potassium 3.4 mmol/L (3.4-5.0); Sodium 128 mmol/L (137-145)
--- NOTE | 2024-08-08 07:24 | PM.IMPN ---
Progress Note: A&P Assessment and Plan (1) Pneumonia: Code(s): J18.9 - Pneumonia, unspecified organism Status: Acute (2) Altered mental status: Code(s): R41.82 - Altered mental status, unspecified Status: Acute (3) Hypertension: Code(s): I10 - Essential (primary) hypertension Status: Acute (4) Chronic respiratory failure with hypoxia, on home oxygen therapy: Code(s): J96.11 - Chronic respiratory failure with hypoxia; Z99.81 - Dependence on supplemental oxygen Status: Acute (5) Chronic hyponatremia: Code(s): E87.1 - Hypo-osmolality and hyponatremia Status: Acute (6) Bacteriuria with pyuria: Code(s): R82.71 - Bacteriuria; R82.81 - Pyuria Status: Acute (7) Polypharmacy: Code(s): Z79.899 - Other [facility] (current) drug therapy Status: Acute Plan The patient presented to the emergency department for evaluation of altered mental status as detailed in HPI. Labs, imaging, EKG, and all reports were personally reviewed. The patient remains confused, likely delirium related to underlying infection with likely some component of cognitive deficit as she is on memantine. No gross focal deficits on exam though will check brain CT. Polypharmacy could be playing a factor as well as underlying infection. Chest x-ray and CT of the abdomen and pelvis showed left-sided pneumonia for which she has been started on azithromycin and ceftriaxone. Left-sided pneumonia could be causing referred pain into the left side of the abdomen as no acute intra-abdominal or pelvic process was identified. Chronic hyponatremia stable on review of previous labs. She is not having urinary symptoms but UA was positive for bacteria and 6 to 11 WBC per high-power field; urine cultures pending. Blood pressures were reviewed and they are stable. Her home medications will be reviewed and resumed as appropriate. 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 Subjective Date/time seen: 08/08/24 07:24 Interval history: Patient WBC continues to improve. Continue ceftriaxone and azithromycin. Yesterday spoke with her daughter and updated her medical condition.Today morning patient had elevated HR after giving albuterol. Patient was given Metoprolol 2.5 mg IV and received her daily Metoprolol 100 mg in the morning. Her HR is in 90's now . Changed her albuterol to Xopenex.Ordered ECHO. Patient reports of having A.Fib but never seen a airline lounge receptionist for more than 5 years and wants to establish one now.Mobile Home Servicer is consulted. Her CHADVASC score is 3. She denies any hemorrhagic stroke or GI bleed in the past. She denies taking any blood thinners in the past as well.Ordered TSH. Patient is being treated for HTN. 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 Review of Systems Review of Systems: 12 systems were reviewed and are negative except for as per HPI however limited due to her confusion. Exam Narrative: General: Ill-appearing female in the semi-Siegel position in bed. Weight: 94.3 kg. BMI: 42.0. HEENT: PERRL, EOMI. Sclera anicteric. Dry mucous membranes. Neck: Supple. No midline vertebral tenderness. Respiratory: Respirations are nonlabored. She is currently on 4.5 L nasal cannula. Lung sounds are diminished at the left base with scattered rales. Cardiovascular: Tachycardic with normal S1-S2. Gastrointestinal: Abdomen is soft, nontender, nondistended with positive bowel sounds. Skin: Warm and dry. No rash or lesions on limited exam. Normal capillary refill. Extremities warm and perfused. Extremities: No cyanosis, clubbing, or right lower extremity edema. Status post left [id number] amputation. Neurological: Alert to name and place. She cannot provide me the current year, her date of , and is somewhat confused regarding situation. Cranial nerves 2-12 are grossly intact. Generally weak without gross focal deficits. Psychiatric: Confused and cooperative. Objective Data Vital Signs Vital Signs: Vital Signs - 24 hr 08/07/24 08:00 08/07/24 08:00 08/07/24 08:00 Temperature 99 F Pulse Rate 104 H 105 H Respiratory Rate 20 Blood Pressure 153/61 H Pulse Oximetry 95 93 Oxygen Delivery Nasal Cannula Oxygen Flow Rate 2 Fraction of Inspired Oxygen 08/07/24 09:31 08/07/24 09:32 08/07/24 09:32 Temperature Pulse Rate 105 H 106 H Respiratory Rate 20 Blood Pressure Pulse Oximetry 96 Oxygen Delivery Nasal Cannula Oxygen Flow Rate 2 Fraction of Inspired Oxygen 28 08/07/24 09:38 08/07/24 10:51 08/07/24 10:51 Temperature Pulse Rate 100 100 100 Respiratory Rate 20 20 Blood Pressure Pulse Oximetry 96 Oxygen Delivery Nasal Cannula Oxygen Flow Rate 2 Fraction of Inspired Oxygen 28 08/07/24 12:00 08/07/24 13:47 08/07/24 14:57 Temperature 98.8 F Pulse Rate 84 84 98 Respiratory Rate 20 18 Blood Pressure 140/58 L Pulse Oximetry 97 Oxygen Delivery Oxygen Flow Rate Fraction of Inspired Oxygen 08/07/24 15:02 08/07/24 16:00 08/07/24 16:00 Temperature Pulse Rate 91 90 91 Respiratory Rate 18 18 Blood Pressure Pulse Oximetry 97 Oxygen Delivery Nasal Cannula Oxygen Flow Rate 2 Fraction of Inspired Oxygen 08/07/24 16:00 08/07/24 18:00 08/07/24 20:00 Temperature 98.5 F Pulse Rate 106 H 106 H 102 H Respiratory Rate 20 20 Blood Pressure 174/68 H Pulse Oximetry 98 95 Oxygen Delivery Nasal Cannula Oxygen Flow Rate 4 Fraction of Inspired Oxygen 08/07/24 20:00 08/07/24 20:03 08/07/24 20:37 Temperature 97.8 F Pulse Rate 102 H 106 H 109 H Respiratory Rate 20 Blood Pressure 160/64 H Pulse Oximetry 95 Oxygen Delivery Oxygen Flow Rate Fraction of Inspired Oxygen 08/07/24 20:50 08/07/24 20:53 08/07/24 21:06 Temperature Pulse Rate 87 88 Respiratory Rate 18 18 Blood Pressure Pulse Oximetry 96 Oxygen Delivery Nasal Cannula Oxygen Flow Rate 4 Fraction of Inspired Oxygen 08/07/24 22:00 08/07/24 23:25 08/07/24 23:42 Temperature 97.8 F Pulse Rate 87 90 88 Respiratory Rate 20 20 Blood Pressure 162/60 H Pulse Oximetry 97 97 Oxygen Delivery Nasal Cannula Oxygen Flow Rate 4 Fraction of Inspired Oxygen 08/07/24 23:42 08/08/24 02:00 08/08/24 02:50 Temperature Pulse Rate 88 84 82 Respiratory Rate 18 Blood Pressure Pulse Oximetry Oxygen Delivery Oxygen Flow Rate Fraction of Inspired Oxygen 08/08/24 03:51 08/08/24 03:51 08/08/24 04:02 Temperature 97.7 F Pulse Rate 98 98 86 Respiratory Rate 18 20 Blood Pressure 163/60 H Pulse Oximetry 97 95 Oxygen Delivery Nasal Cannula Oxygen Flow Rate 4 Fraction of Inspired Oxygen 28 08/08/24 05:37 Temperature Pulse Rate 90 Respiratory Rate Blood Pressure Pulse Oximetry Oxygen Delivery Oxygen Flow Rate Fraction of Inspired Oxygen Intake/Output Intake/Output: Intake & Output 08/05/24 08/06/24 08/07/24 08/08/24 23:59 23:59 23:59 23:59 Intake Total 1300 1305 1500 Output Total 1350 400 Balance 1300 -45 1100 Meds/Results Medications: Active Medications Generic Name Dose Route Start Last Admin Trade Name Freq PRN Reason Stop Dose Admin Acetaminophen 650 mg 08/06/24 10:57 Acetaminophen 325 Mg Tablet PO Q4H PRN Mild Pain (1-3) or Fever Hydrocodone Bitart/Acetaminophen 1 tab 08/06/24 10:57 08/06/24 22:32 Hydrocodone/Acetaminophen (*Crx) 5-325 Mg Tablet PO 1 tab Q4H PRN Administration Pain Rated 4-6 Albuterol/Ipratropium 3 ml 08/06/24 14:00 08/08/24 02:48 Ipratropium 0.5 Mg/Albuterol Sulfate 2.5 Mg Ampul.Neb 3 Ml INHALATION 3 ml Q6HRT KELIN Administration Amlodipine Besylate 10 mg 08/07/24 09:00 08/07/24 09:37 Amlodipine Besylate 10 Mg Tablet PO 10 mg DAILY KELIN Administration Artificial Tears 1 drop 08/07/24 16:43 08/08/24 03:33 Artificial Tears Ophth Soln 15 Ml Bottle EACH EYE 1 drop QID PRN Administration Dry Eye(s) Bisacodyl 10 mg 08/06/24 23:10 Bisacodyl 5 Mg Tablet Ec PO HS PRN Constipation Diclofenac Sodium 1 applic 08/06/24 23:10 Diclofenac Sodium 1% 100 Gm Gel (*Bkc) TOPICAL BID PRN moderate pain (scale score 5-6) Enoxaparin Sodium 40 mg 08/07/24 09:00 08/07/24 09:37 Enoxaparin 40 Mg/0.4 Ml Syringe SUB-Q 40 mg DAILY KELIN Administration Famciclovir 250 mg 08/07/24 09:00 08/07/24 20:36 Famciclovir 250 Mg Tablet PO 250 mg Q12HR KELIN Administration Fluticasone Propionate 2 spray 08/07/24 09:00 08/07/24 09:38 Fluticasone Propionate 0.05% Na Spr 16 Gm Btl (*Bkc) NASAL 2 spray DAILY KELIN Administration Furosemide 10 mg 08/07/24 09:00 08/07/24 17:08 Furosemide 10 Mg Tablet PO 10 mg BID KELIN Administration Guaifenesin 1,200 mg 08/07/24 09:00 08/07/24 20:37 Guaifenesin 12 Hr 600 Mg Tabcr PO 1,200 mg Q12HR KELIN Administration Ceftriaxone Sodium 1 gm in 50 mls @ 100 mls/hr 08/07/24 09:00 08/07/24 09:58 Rocephin 1 Gm/Ns 50 Ml IVPB Infused Q24H KELIN Infusion Azithromycin 500 mg in 250 mls @ 250 mls/hr 08/07/24 09:00 08/07/24 09:55 Zithromax IVPB 250 mls/hr Q24H KELIN Administration Isosorbide Mononitrate 30 mg 08/07/24 09:00 08/07/24 09:49 Isosorbide Mononitrate 30 Mg Tab.Er.24h PO 30 mg DAILY KELIN Administration Lidocaine 2 patch 08/07/24 21:00 08/07/24 20:38 Lidocaine 5% Patch TOPICAL 2 patch HS KELIN Administration Losartan Potassium 100 mg 08/07/24 09:00 08/07/24 09:50 Losartan Potassium 100 Mg Tablet PO 100 mg DAILY KELIN Administration Memantine 5 mg 08/07/24 09:00 08/07/24 20:36 Memantine 5 Mg Tablet PO 5 mg Q12HR KELIN Administration Metoprolol Tartrate 100 mg 08/06/24 23:15 08/07/24 20:37 Metoprolol Tartrate 50 Mg Tab PO 100 mg Q12HR KELIN Administration Miconazole Nitrate 1 applic 08/06/24 23:24 Miconazole Nitrate 2% Cream 30 Gm Tube TOPICAL BID PRN irritation Ondansetron HCl 4 mg 08/07/24 16:42 08/08/24 03:33 Ondansetron Hcl Odt 4 Mg Tablet PO 4 mg Q8HR PRN Administration Nausea And Vomiting Pantoprazole Sodium 40 mg 08/07/24 09:00 08/07/24 09:32 Pantoprazole 40 Mg Tablet PO 40 mg DAILY KELIN Administration Pregabalin 150 mg 08/07/24 09:00 08/07/24 17:09 Pregabalin (*Crx) 75 Mg Capsule PO 150 mg BID KELIN Administration Primidone 200 mg 08/07/24 09:00 08/07/24 17:08 Primidone 50 Mg Tablet PO 200 mg BID KELIN Administration Fluticasone/Salmeterol 2 puff 08/07/24 08:00 08/07/24 20:52 Fluticasone/Salmeterol 115-21 Mcg Inhaler 1 Puff INHALATION 2 puff Q12HRT KELIN Administration Sodium Chloride 2 spray 08/06/24 23:10 Saline 0.65% [place] Soln 44 Ml Btl NASAL PRN PRN Congestion Sodium Chloride 1 gm 08/07/24 09:00 08/07/24 17:08 Sodium Chloride 1 Gm Tablet PO 1 gm BID KELIN Administration Spironolactone 25 mg 08/07/24 09:00 08/07/24 09:31 Spironolactone 25 Mg Tablet PO 25 mg DAILY KELIN Administration Vitamin B Complex/Folic Acid 1 cap 08/07/24 09:00 08/07/24 09:51 Vitamin B Cmplx/Vit C/Folic Ac 1 Capsule PO 1 cap QAM KELIN Administration Vitamin D 5,000 units 08/07/24 09:00 08/07/24 09:36 Cholecalciferol 5,000 Units Tablet PO 5,000 units DAILY KELIN Administration Vitamin E 800 unit 08/07/24 09:00 08/07/24 09:34 Vitamin E 400 Unit Capsule PO 800 unit DAILY KELIN Administration Radiology Results: ITS Impressions Chest X-Ray 08/06/24 09:01 IMPRESSION: Patchy infiltrate of left mid and lower lung, primarily involving left lower lobe, likely due to pneumonia Abdomen/Pelvis CT 08/06/24 09:03 IMPRESSION: Prominent patchy consolidation of left lower lobe consistent with pneumonia Mild dependent right lower lobe infiltrate or atelectasis Borderline heart size Pinpoint nonobstructing lower pole left renal calculus Status post hysterectomy Head CT 08/06/24 21:50 Impression: No acute intracranial hemorrhage or suspicious mass effect. Ventricular dilatation and bifrontal atrophy, far advanced for patient of this age but unchanged dating back to 04/23/2024. Labs Labs: Laboratory Results - last 24 hr 08/08/24 04:19 WBC 15.8 H RBC 3.54 L Hgb 11.0 L Hct 32.9 L MCV 92.9 MCH 31.1 MCHC 33.4 RDW 12.4 Plt Count 229 MPV 10.5 H Sodium 128 L Potassium 3.4 Chloride 94 L Carbon Dioxide 24 Anion Gap 10 BUN 9 D Creatinine 0.58 L Estim Creat Clear Calc Not Reportable Estimated GFR > 60 Glucose 111 H Calcium 7.8 L Total Bilirubin 0.5 AST 47 H ALT 35 Alkaline Phosphatase 108 Total Protein 6.0 L Albumin 3.2 L Quality VTE Prophylaxis VTE prophylaxis: pharmacologic ordered Hospitalist MIPS Advance Care Plan I have confirmed that the patient's Advanced Care Plan is present, code status is documented, or surrogate decision maker is listed in patient medical record.: Yes Medication Reconciliation I have utilized all available resources to obtain, update and review the patients current medications (includes all prescriptions, OTC, herbals, cannabis, and nutritional supplements).: Yes
[2024-08-08] MEDS: FLUTICASONE/SALMETEROL 115-21 MCG INHALER 1 PUFF 2 PUFF INHALATION ×2 (08:02→20:25)
--- NOTE | 2024-08-08 08:29 | ECG_ITS ---
Test Date: 2024-08-08 08:39:37 Measurements Intervals [place] Rate: 150 P: 0 MS: 0 QRS: -29 QRSD: 97 T: 126 QT: 280 QTc: 443 Interpretive Statements ATRIAL FIBRILLATION WITH RAPID VENTRICULAR RESPONSE BORDERLINE LEFT AXIS DEVIATION [QRS AXIS < -20] VOLTAGE CRITERIA FOR LVH [MEETS CRITERIA IN ONE OF: R(aVL), S(V1), R(V5), R(V5/V6)+S(V1)] ST DEVIATION AND MODERATE T-WAVE ABNORMALITY, CONSIDER LATERAL ISCHEMIA [-0.1+ mV T WAVE IN I/aVL/V5/V6] WARNING: DATA QUALITY MAY AFFECT INTERPRETATION Compared to ECG 08/06/2024 06:37:07 ATRIAL FIBRILLATION WITH RVR NOW PRESENT Electronically Signed On 08-08-2024 15:21:57 BLUEPRINTING MACHINE OPERATOR by Sonali Terrell M.D.
[2024-08-08] MEDS: METOPROLOL TARTRATE INJ 5 MG/5 ML VIAL 2.5 MG IV PUSH (08:43)
[2024-08-08] MEDS: VITAMIN E 400 UNIT CAPSULE 800 UNIT PO (09:17)
[2024-08-08] MEDS: FUROSEMIDE 10 MG TABLET PO ×2 (09:18→17:51)
[2024-08-08] MEDS: CHOLECALCIFEROL 5,000 UNITS TABLET 5000 UNITS PO (09:18)
[2024-08-08] MEDS: guaiFENesin 12 HR 600 MG TABCR 1200 MG PO ×2 (09:18→20:35)
[2024-08-08] MEDS: PREGABALIN (*CRX) 75 MG CAPSULE 150 MG PO ×2 (09:18→20:37)
[2024-08-08] MEDS: PANTOPRAZOLE 40 MG TABLET PO (09:18)
[2024-08-08] MEDS: LOSARTAN POTASSIUM 100 MG TABLET PO (09:18)
[2024-08-08] MEDS: ISOSORBIDE MONONITRATE 30 MG TAB.ER.24H PO (09:18)
[2024-08-08] MEDS: amLODIPine BESYLATE 10 MG TABLET PO (09:18)
[2024-08-08] MEDS: FAMCICLOVIR 250 MG TABLET PO ×2 (09:18→20:38)
[2024-08-08] MEDS: MEMANTINE 5 MG TABLET PO ×2 (09:19→20:37)
[2024-08-08] MEDS: SODIUM CHLORIDE 1 GM TABLET PO ×3 (09:19→17:51)
[2024-08-08] MEDS: METOPROLOL TARTRATE 50 MG TAB 100 MG PO ×2 (09:19→20:38)
[2024-08-08] MEDS: SPIRONOLACTONE 25 MG TABLET PO (09:19)
[2024-08-08] MEDS: AZITHROMYCIN 500 MG/NS 250 ML 500 MG/250 ML BAG 250 MG IVPB (09:20)
[2024-08-08] MEDS: PRIMIDONE 50 MG TABLET 200 MG PO ×2 (09:25→20:36)
[2024-08-08] MEDS: VITAMIN B CMPLX/VIT C/FOLIC AC 1 CAPSULE 1 CAP PO (09:33)
[2024-08-08] MEDS: FLUTICASONE PROPIONATE 0.05% NA SPR 16 GM BTL (*BKC) 2 SPRAY NASAL (09:33)
[2024-08-08] MEDS: ENOXAPARIN 40 MG/0.4 ML SYRINGE SUB-Q (09:33)
--- NOTE | 2024-08-08 10:54 | P.CONCA_ITS ---
Assessment and Plan Assessment and plan (1) Atrial fibrillation with RVR: Code(s): I48.91 - Unspecified atrial fibrillation Status: Acute Assessment and Plan: Paroxysmal atrial fibrillation with symptomatic occurrence this morning following an albuterol treatment. Received 2.5mg metoprolol IV and has spontaneously converted back to sinus rhythm. She has a [id number] score of at least 3 (gender, age, HTN), therefore anticoagulation is warranted. Discussed risks/benefits of anticoagulation for cardioembolic risk reduction. Despite being back in sinus rhythm at this point she may have asymptomatic recurrences of AF. No contraindications to anticoagulation. She would like to proceed with anticoagulation. Will start Xarelto 20mg daily. Metoprolol should be continued. She also has known sleep apnea but does not use CPAP, encouraged CPAP use. Will check an echo as well. She did have some lateral ST depressions on EKG while in rapid Afib, can pursue CCTA as outpatient (not a treadmill candidate because of leg amputation and would avoid lexiscan as inpatient because of pneumonia superimposed on underlying lung disease, risk for respiratory distress). Cardiology will sign off please call with any questions. (2) HTN (hypertension): Qualifiers: Hypertension type: essential hypertension Qualified Code(s): I10 - Essential (primary) hypertension Code(s): I10 - Essential (primary) hypertension Status: Chronic Assessment and Plan: Generally above goal but improved today. (3) HLD (hyperlipidemia): Qualifiers: Hyperlipidemia type: unspecified Qualified Code(s): E78.5 - Hyperlipidemia, unspecified Code(s): E78.5 - Hyperlipidemia, unspecified Status: Chronic Assessment and Plan: Unsure why she is not on statin. Will check lipid panel. (4) Pneumonia: Code(s): J18.9 - Pneumonia, unspecified organism Status: Acute Assessment and Plan: Management per hospitalist History of Present Illness History of Present Illness Consult date/time: 08/08/24 10:54 Requesting physician: Shabbir Zayas MD Consult reason: atrial fibrillation Reason For Visit: pneumonia, hypoxia Narrative: Celestina Ewing is a 73 year old female with hypertension and chronic respiratory failure on home oxygen. She comes to the hospital with shortness of breath and altered mental status. She is being treated for pneumonia. Cardiology is consulted because of atrial fibrillation with rapid ventricular response. This morning after receiving an albuterol treatment she went into atrial fibrillation with heart rates in the 150's - 160's. She was given one dose of IV metoprolol and at the time of this dictation has spontaneously converted back to sinus rhythm. She has had at least one known prior occurrence of atrial fibrillation in 2019 when she was hospitalized with septic shock. At that time she was not placed on anticoagulation and to her knowledge she has not had a recurrence of atrial fibrillation since that time. This morning when she was in atrial fibrillation she did feel palpitations and some mild chest discomfort. At the time of my evaluation she is in sinus rhythm and has no active complaints. Review of Systems 2 Review of Systems: All systems reviewed & are unremarkable except as noted in HPI and below PMFSH Past Medical History Medical History Kidney stone Chronic anemia Chronic respiratory failure with hypoxia, on home oxygen therapy Bipolar disorder Gastroesophageal reflux disease Hyperlipidemia Hypertension Obstructive sleep apnea intolerant to CPAP Left tibial fracture Chronic hyponatremia Shingles Anxiety Depression Gastroparesis Diverticulitis Asthma Epilepsy no longer on medication Seasonal allergies Surgical History Surgical History History of left above knee amputation History of right shoulder replacement History of cholecystectomy History of left knee replacement History of hysterectomy History of open reduction and internal fixation (ORIF) procedure Left tibia and right ankle. History of appendectomy History of tonsillectomy Family History Family History Mother Suicide Depression Heart disease Hypertension Heart failure Sibling Suicide Father Diabetes mellitus Emphysema lung Social History Social History Social History: Surrogate medical decision maker: Martina Rodney, daughter. Code status: Full code. Smoking status: Never smoker Second hand tobacco smoke exposure: No Alcohol intake: never Substance use: never Do You Feel Safe in your Home?: Yes Lack of Transportation: No Lack of Food: Never True Current Housing: I Have Housing Concerned About Future Housing: No Difficulty Paying Gas/Electric Bills: No Difficulty Paying for Meds: No Currently Unemployed: No Education: High School Diploma/GED Difficulty w/ Childcare or Family Care: No Living arrangements: long term village Occupation/Education: retired Spiritual care concerns: No Agree to blood products: No Meds Home Medications and Allergies Home Medications ?Medication ?Instructions ?Recorded ?Confirmed ?Type atorvastatin 10 mg tablet 10 mg PO HS 09/09/19 08/06/24 History cholecalciferol (vitamin D3) 10 5,000 unit PO DAILY 09/09/19 08/06/24 History mcg (400 unit) tablet famciclovir 250 mg tablet 250 mg PO Q12H 09/09/19 08/06/24 History fluticasone propionate 50 2 spray intranasal DAILY 09/09/19 08/06/24 History mcg/actuation nasal spray,suspension pantoprazole 40 mg tablet,delayed 40 mg PO DAILY 09/09/19 08/06/24 History release primidone 50 mg tablet 200 mg PO BID 09/09/19 08/06/24 History vitamin E 268 mg (400 unit) capsule 800 unit PO DAILY 09/09/19 08/06/24 History docusate sodium 100 mg tablet 100 mg PO DAILY PRN Constipation 05/31/20 08/06/24 History spironolactone 25 mg tablet 25 mg PO DAILY 05/31/20 08/06/24 History baclofen 10 mg tablet 10 mg PO TID 02/19/21 08/06/24 History losartan 100 mg tablet 100 mg PO DAILY 02/19/21 08/06/24 History albuterol sulfate 90 mcg/actuation 1 inh inhalation DAILY PRN 04/23/24 08/06/24 History aerosol inhaler sob/wheezing amlodipine 10 mg tablet 10 mg PO DAILY 04/23/24 08/06/24 History bisacodyl 5 mg tablet,delayed 10 mg PO HS PRN Constipation 04/23/24 08/06/24 History release (Dulcolax (bisacodyl)) budesonide-formoterol HFA 160 2 puff inhalation BID 04/23/24 08/06/24 History mcg-4.5 mcg/actuation aerosol inhaler guaifenesin 1,200 mg tablet, 1,200 mg PO BID 04/23/24 08/06/24 History extended release 12 hr (Mucinex) memantine 5 mg tablet 5 mg PO BID 04/23/24 08/06/24 History metoprolol tartrate 100 mg tablet 100 mg PO BID 04/23/24 08/06/24 History nystatin 100,000 unit/gram topical 1 applic topical BID PRN irritation 04/23/24 08/06/24 History cream ondansetron HCl 4 mg tablet 4 mg PO TID 04/23/24 08/06/24 History polyethylene glycol 3350 17 17 g PO DAILY PRN Constipation 04/23/24 08/06/24 History gram/dose oral powder (Miralax) sodium chloride 0.65 % nasal spray 2 spray intranasal PRN PRN 04/23/24 08/06/24 History aerosol Congestion vitamin B complex 1 tablet PO DAILY 04/23/24 08/06/24 History furosemide 20 mg tablet (Lasix) 10 mg (1/2 x 20 mg) PO BID #60 tabs 05/04/24 08/06/24 Rx lorazepam 0.5 mg tablet 1 mg (2 x 0.5 mg) PO Q6H PRN 05/04/24 08/06/24 Rx Anxiety #10 tabs oxycodone 5 mg tablet 5 mg PO Q4-6H PRN Pain #10 tabs 05/04/24 08/06/24 Rx pregabalin 150 mg capsule (Lyrica) 150 mg PO BID #14 caps 05/04/24 08/06/24 Rx sodium chloride 1,000 mg soluble 1,000 mg PO BID #60 tabs 05/04/24 08/06/24 Rx tablet diclofenac sodium 1 % topical gel 2 g topical BID PRN moderate pain 08/06/24 08/06/24 History (Voltaren Arthritis Pain) (scale score 5-6) isosorbide mononitrate 30 mg 30 mg PO DAILY 08/06/24 08/06/24 History tablet,extended release 24 hr lidocaine 5 % topical patch 2 patch topical DAILY 08/06/24 08/06/24 History (Lidoderm) magnesium hydroxide 400 mg/5 mL 30 ml PO DAILY PRN constipation 08/06/24 08/06/24 History oral suspension (Gentle Laxative (magnesium hydroxide)) Allergies Allergy/AdvReac Type Severity Reaction Status Date / Time Fish Containing Products Allergy Severe Dyspnea / Verified 04/23/24 19:11 SOB Iodinated Contrast Media Allergy Intermediate HIVES, RED Verified 04/27/24 08:14 FACE iodine Allergy Unknown Unknown Verified 04/23/24 19:11 Barbiturates Allergy Unknown Verified 04/23/24 19:11 bupivacaine Allergy Unknown Verified 04/23/24 20:51 diazepam (From Valium) Allergy Unknown Verified 04/23/24 19:11 latex Allergy Unknown Verified 04/23/24 19:11 menthol Allergy Unknown Verified 04/23/24 20:51 Sulfa (Sulfonamide Allergy Unknown Verified 04/23/24 19:11 Antibiotics) thiopental (From Pentothal) Allergy Unknown Verified 04/27/24 08:14 wool Allergy Unknown Verified 04/23/24 20:51 Vital Signs Vital Signs - 24 hr 08/07/24 12:00 08/07/24 13:47 08/07/24 14:57 Temperature 37.1 C Pulse Rate 84 84 98 Respiratory Rate 20 18 Blood Pressure 140/58 L Pulse Oximetry 97 Oxygen Delivery Oxygen Flow Rate Fraction of Inspired Oxygen 08/07/24 15:02 08/07/24 16:00 08/07/24 16:00 Temperature Pulse Rate 91 90 91 Respiratory Rate 18 18 Blood Pressure Pulse Oximetry 97 Oxygen Delivery Nasal Cannula Oxygen Flow Rate 2 Fraction of Inspired Oxygen 08/07/24 16:00 08/07/24 18:00 08/07/24 20:00 Temperature 36.9 C Pulse Rate 106 H 106 H 102 H Respiratory Rate 20 20 Blood Pressure 174/68 H Pulse Oximetry 98 95 Oxygen Delivery Nasal Cannula Oxygen Flow Rate 4 Fraction of Inspired Oxygen 08/07/24 20:00 08/07/24 20:03 08/07/24 20:37 Temperature 36.6 C Pulse Rate 102 H 106 H 109 H Respiratory Rate 20 Blood Pressure 160/64 H Pulse Oximetry 95 Oxygen Delivery Oxygen Flow Rate Fraction of Inspired Oxygen 08/07/24 20:50 08/07/24 20:53 08/07/24 21:06 Temperature Pulse Rate 87 88 Respiratory Rate 18 18 Blood Pressure Pulse Oximetry 96 Oxygen Delivery Nasal Cannula Oxygen Flow Rate 4 Fraction of Inspired Oxygen 08/07/24 22:00 08/07/24 23:25 08/07/24 23:42 Temperature 36.6 C Pulse Rate 87 90 88 Respiratory Rate 20 20 Blood Pressure 162/60 H Pulse Oximetry 97 97 Oxygen Delivery Nasal Cannula Oxygen Flow Rate 4 Fraction of Inspired Oxygen 08/07/24 23:42 08/08/24 02:00 08/08/24 02:50 Temperature Pulse Rate 88 84 82 Respiratory Rate 18 Blood Pressure Pulse Oximetry Oxygen Delivery Oxygen Flow Rate Fraction of Inspired Oxygen 08/08/24 03:51 08/08/24 03:51 08/08/24 04:02 Temperature 36.5 C Pulse Rate 98 98 86 Respiratory Rate 18 20 Blood Pressure 163/60 H Pulse Oximetry 97 95 Oxygen Delivery Nasal Cannula Oxygen Flow Rate 4 Fraction of Inspired Oxygen 28 08/08/24 05:37 08/08/24 08:00 08/08/24 08:05 Temperature 37.1 C Pulse Rate 90 106 H Respiratory Rate 20 18 Blood Pressure 179/77 H Pulse Oximetry 99 Oxygen Delivery Oxygen Flow Rate Fraction of Inspired Oxygen 08/08/24 08:05 08/08/24 08:26 08/08/24 08:30 Temperature Pulse Rate 154 H Respiratory Rate 18 Blood Pressure 144/82 H Pulse Oximetry 92 Oxygen Delivery Nasal Cannula Oxygen Flow Rate 4 Fraction of Inspired Oxygen 08/08/24 08:43 08/08/24 08:44 08/08/24 09:19 Temperature Pulse Rate 167 H 145 H Respiratory Rate Blood Pressure 122/94 H Pulse Oximetry Oxygen Delivery Oxygen Flow Rate Fraction of Inspired Oxygen 08/08/24 09:44 08/08/24 10:32 Temperature Pulse Rate Respiratory Rate Blood Pressure 134/92 H 129/68 Pulse Oximetry Oxygen Delivery Oxygen Flow Rate Fraction of Inspired Oxygen Exam 2 Narrative: Chronically ill-appearing woman lying comfortably in bed Const: General: comfortable, no acute distress, alert and awake O rientation/consciousness: patient oriented x3 HENMT: Head: normal to inspection Eyes: General: appearance normal, both eyes and all related structures P upils: Equal, round and reactive pupils present Neck: Neck: normal visual inspection, supple and no JVD Carotids: normal carotid upstroke Resp: Effort & Inspection: normal respiratory effort Auscultation: clear to auscultation bilaterally and diminished lung sounds Cardio: Rate: regular rate Rhythm: regular rhythm Heart sounds: S1 normal heart sound present, S2 normal heart sound present and no murmurs GI: Auscultation: normal bowel sounds Skin: General skin exam: normal color Neuro: General: patient oriented x3 Cranial nerves: Yes Equal, round and reactive pupils present Extrem: General: normal to inspection Other: L BKA Psych: Appearance: grossly normal Mental Status: mental status grossly normal Results Labs and Meds 08/08/24 04:19 08/08/24 04:19 Lab results: Cardiac Enzymes 08/08/24 Range/Units 04:19 AST 47 H (14-36) U/L CBC 08/08/24 Range/Units 04:19 WBC 15.8 H (4.5-10.0) K/mm3 RBC 3.54 L (4.2-5.4) M/mm3 Hgb 11.0 L (12.0-15.0) g/dL Hct 32.9 L (37.0-47.0) % Plt Count 229 (150-375) k/mm3 Comprehensive Metabolic Panel 08/08/24 Range/Units 04:19 Sodium 128 L (137-145) mmol/L Potassium 3.4 (3.4-5.0) mmol/L Chloride 94 L (98-107) mmol/L Carbon Dioxide 24 (22-30) mmol/L BUN 9 D (7-17) mg/dL Creatinine 0.58 L (0.7-1.0) mg/dL Glucose 111 H (65-110) mg/dL Calcium 7.8 L (8.4-10.2) mg/dL AST 47 H (14-36) U/L ALT 35 (6-35) U/L Alkaline Phosphatase 108 (38-126) U/L Total Protein 6.0 L (6.3-8.2) g/dL Albumin 3.2 L (3.5-5.1) g/dL Intake and Output 08/07/24 08/08/24 08/08/24 23:59 07:59 15:59 Intake Total 440 1500 120 Output Total 850 400 Balance -410 1100 120 Intake: Oral 440 1500 120 Output: Urine 850 400 Other: # Unmeasured Voids 1 Patient Weight 08/08/24 23:59 Weight 90.5 kg
[2024-08-08] MEDS: ACETAMINOPHEN 325 MG TABLET 650 MG PO (12:31)
[2024-08-08] MEDS: LEVALBUTEROL NEB 1.25 MG/3 ML INHALATION ×2 (13:52→20:10)
[2024-08-08] MEDS: IPRATROPIUM BR 0.02% INH SOLN 0.5 MG/2.5 ML VIAL INHALATION ×2 (13:52→20:10)
[2024-08-08] MEDS: RIVAROXABAN 20 MG TABLET PO (17:51)
[2024-08-08] MEDS: LIDOCAINE 5% PATCH 2 PATCH TOPICAL (20:42)
[2024-08-09] VITALS (22 sets, daily range): BP systolic 142–194; BP diastolic 60–76; PULSE 63–112; RESP 10–18; TEMP 36.5–37.1; O2SAT 94–99
--- NOTE | 2024-08-09 | ECHO_ITS ---
Patient Info Name: Celestina Ewing Age: 73 years : 1950 Gender: Female Ht: 59 in Wt: 194 lbs BSA: 1.96 m2 HR: 112 bpm BP: 171 / 73 mmHg Heart Rhythm: Sinus Rhythm Technical Quality: Good Exam Date: 08/09/2024 11:23 AM Exam Location: Echo Lab Exam Room: [facility] Patient Status: Inpatient Admit Date: 08/06/2024 Staff Ordering Physician: Shabbir Zayas MD [employer] Supervisor: Tori Morales RDCS Attending Provider: Bhavik Minaya MD Referring Physician: PARAM; Exam Type: CA echo doppler color flow Study Info Complete two-dimensional, color flow and Doppler transthoracic echocardiogram is performed. Summary 1. Technically difficult study with limited views. 2. Left ventricular chamber dimension is normal. 3. Left ventricular systolic function is normal, estimated at 60-65%. 4. There is mildly increased left ventricular wall thickness. 5. The left ventricular diastolic function is grade I diastolic dysfunction. 6. Right ventricular systolic function is normal. 7. Left atrial chamber dimension is mildly enlarged. 8. There is moderate aortic valve regurgitation. 9. There is mild mitral valve regurgitation. 10. There is mild tricuspid valve regurgitation. Left Ventricle Left ventricular chamber dimension is normal. Left ventricular systolic function is normal, estimated at 60-65%. There is mildly increased left ventricular wall thickness. The left ventricular diastolic function is grade I diastolic dysfunction. Right Ventricle Right ventricular chamber dimension is normal. Right ventricular systolic function is normal. Left Atria Left atrial chamber dimension is mildly enlarged. Right Atria Right atrial chamber dimension is normal. Atrial Septum Intact interatrial septum visualized by color flow imaging. Aortic Valve The aortic valve is not well visualized. There is no aortic valve stenosis. There is moderate aortic valve regurgitation. Pulmonic Valve The pulmonic valve is not well visualized. There is trace pulmonic regurgitation. Mitral Valve There is mild mitral valve regurgitation. The mitral valve annulus is moderately calcified. Tricuspid Valve There is mild tricuspid valve regurgitation. Pericardium/Pleural The pericardium appears epicardial fat pad. There is no pericardial effusion. Inferior Vena Cava Normal inferior vena cava with >50% collapse upon inspiration consistent with normal right atrial pressure, 3 mmHg. Aorta The aortic root size at the sinus of Valsalva is normal. Left Ventricular Outflow Tract Name Value Normal LVOT 2D LVOT Diameter 1.9 cm LVOT Doppler LVOT Peak Gradient 9 mmHg LVOT Mean Gradient 6 mmHg LVOT VTI 33 cm LVOT VTI/AV VTI Ratio 0.9 LVOT Stroke Volume 96 ml LVOT CO 7.6 l/min LVOT CI 3.9 l/min/m2 Pulmonic Valve Name Value Normal PV Doppler PV Peak Gradient 6 mmHg PV Regurgitation Doppler IL Peak End Diastolic Velocity 141 cm/s Mitral Valve Name Value Normal MV Doppler MV Peak Gradient 14 mmHg MV Mean Gradient 5 mmHg MV Decel Burnet 377 cm/s2 MV PHT 96 ms MV Area (PHT) 2.3 cm2 4.0-5.0 MV Area (Cont Eq VTI) 2.3 cm2 MV Regurgitation Doppler MR Peak Gradient 185 mmHg MV Diastolic Function MV E Peak Velocity 125 cm/s MV A Peak Velocity 180 cm/s MV E/A 0.7 MV Decel Time 332 ms MV Annular TDI MV E/e' (Septal) 30.3 <=8.0 MV E/e' (Lateral) 19.4 <=8.0 MV E/e' (Average) 24.9 Tricuspid Valve Name Value Normal TV Regurgitation Doppler TR Peak Velocity 337 cm/s TR Peak Gradient 31 mmHg Estimated PAP/RSVP RA Pressure 3 mmHg <=5 PA Systolic Pressure 48 mmHg <36 RV Systolic Pressure 48 mmHg <36 Aortic Valve Name Value Normal AV Doppler AV Peak Velocity 182 cm/s AV Peak Gradient 13 mmHg AV Mean Gradient 7 mmHg AV VTI 35 cm AV Area (Cont Eq VTI) 2.7 cm2 >=3.0 AV Area (Cont Eq Van) 2.7 cm2 AV Regurgitation 2D LVOT Area 2.9 cm2 AV Regurgitation Doppler AR Decel Time 1,397 ms AR Decel Burnet 374 cm/s2 AR PHT 405 ms Ventricles Name Value Normal LV Dimensions 2D/MM IVS Diastolic Thickness (2D) 1.0 cm 0.6-1.0 LVID Diastole (2D) 4.2 cm 3.8-5.2 LVIW Diastolic Thickness (2D) 0.8 cm 0.6-0.9 LVID Systole (2D) 3.2 cm 2.2-3.5 LVOT Diameter 1.9 cm LV Mass (2D Cubed) 118.24 g 67.00-162.00 LV Mass Index (2D Cubed) 60 g/m2 43-95 Relative Wall Thickness (2D) 0.38 LV Fractional Shortening/Ejection Fraction 2D/MM LV Fractional Shortening (2D) 25 % 27-45 LV EF (2D Teichhiz) 50 % 54-74 LV Diastolic Volume (4C MOD) 112 ml LV EF (4C MOD) 64 % LV Diastolic Length (4C) 8.6 cm LV Systolic Length (4C) 6.9 cm LV Stroke Volume (4C MOD) 72 ml Atria Name Value Normal LA Dimensions LA Volume (4C A-L) 78 ml RA Dimensions RA Area (4C) 13.1 cm2 <=18.0 Report Signatures
[2024-08-09] MEDS: LEVALBUTEROL NEB 1.25 MG/3 ML INHALATION ×4 (02:13→20:23)
[2024-08-09] MEDS: IPRATROPIUM BR 0.02% INH SOLN 0.5 MG/2.5 ML VIAL INHALATION ×4 (02:13→20:23)
[2024-08-09 04:16] LABS: Hematocrit 33.1 % (37.0-47.0); Hemoglobin 10.8 g/dL (12.0-15.0); Mean Corpuscular HGB Conc 32.6 g/dl (32-36); Mean Corpuscular Hemoglobin 30.2 pg (26-34); Mean Corpuscular Volume 92.5 fl (80-100); Mean Platelet Volume 10.5 fl (7.4-10.4); Platelet Count Result 216 k/mm3 (150-375); Red Blood Count 3.58 M/mm3 (4.2-5.4); Red Cell Distribution Width 12.3 % (11.5-14.5); White Blood Count 10.4 K/mm3 (4.5-10.0)
[2024-08-09 04:32] LABS: Alanine Aminotransferase 69 U/L (6-35); Albumin Level 3.1 g/dL (3.5-5.1); Alkaline Phosphatase 102 U/L (38-126); Anion Gap 7 mmol/L (4-12); Aspartate Amino Transferase 75 U/L (14-36); Bilirubin,Total 0.4 mg/dL (0.2-1.3); Blood Urea Nitrogen 7 mg/dL (7-17); Carbon Dioxide 27 mmol/L (22-30); Chloride 94 mmol/L (98-107); Estimated Glomerular Filt Rate > 60; Glucose 92 mg/dL (65-110); Potassium 3.3 mmol/L (3.4-5.0); Sodium 128 mmol/L (137-145)
[2024-08-09] MEDS: ONDANSETRON HCL ODT 4 MG TABLET PO ×3 (06:19→20:16)
[2024-08-09] MEDS: FLUTICASONE/SALMETEROL 115-21 MCG INHALER 1 PUFF 2 PUFF INHALATION ×2 (06:55→20:23)
[2024-08-09] MEDS: MEMANTINE 5 MG TABLET PO ×2 (08:32→20:16)
[2024-08-09] MEDS: FUROSEMIDE 10 MG TABLET PO ×2 (08:32→17:04)
[2024-08-09] MEDS: PREGABALIN (*CRX) 75 MG CAPSULE 150 MG PO ×2 (08:32→20:16)
[2024-08-09] MEDS: PRIMIDONE 50 MG TABLET 200 MG PO ×2 (08:32→20:15)
[2024-08-09] MEDS: ISOSORBIDE MONONITRATE 30 MG TAB.ER.24H PO (08:32)
[2024-08-09] MEDS: FAMCICLOVIR 250 MG TABLET PO ×2 (08:32→20:16)
[2024-08-09] MEDS: METOPROLOL TARTRATE 50 MG TAB 100 MG PO ×2 (08:32→20:15)
[2024-08-09] MEDS: PANTOPRAZOLE 40 MG TABLET PO (08:32)
[2024-08-09] MEDS: VITAMIN B CMPLX/VIT C/FOLIC AC 1 CAPSULE 1 CAP PO (08:32)
[2024-08-09] MEDS: CHOLECALCIFEROL 5,000 UNITS TABLET 5000 UNITS PO (08:32)
[2024-08-09] MEDS: LOSARTAN POTASSIUM 100 MG TABLET PO (08:32)
[2024-08-09] MEDS: SPIRONOLACTONE 25 MG TABLET PO (08:32)
[2024-08-09] MEDS: SODIUM CHLORIDE 1 GM TABLET PO ×2 (08:32→17:04)
[2024-08-09] MEDS: amLODIPine BESYLATE 10 MG TABLET PO (08:32)
[2024-08-09] MEDS: AZITHROMYCIN 500 MG/NS 250 ML 500 MG/250 ML BAG 250 MG IVPB (08:33)
[2024-08-09] MEDS: guaiFENesin 12 HR 600 MG TABCR 1200 MG PO ×2 (08:33→20:16)
[2024-08-09] MEDS: POTASSIUM CHLORIDE 20 MEQ PACKET (FOR LIQUID) 60 MEQ PO (08:33)
[2024-08-09] MEDS: VITAMIN E 400 UNIT CAPSULE 800 UNIT PO (08:33)
[2024-08-09] MEDS: FLUTICASONE PROPIONATE 0.05% NA SPR 16 GM BTL (*BKC) 2 SPRAY NASAL (08:34)
[2024-08-09] MEDS: ARTIFICIAL TEARS OPHTH SOLN 15 ML BOTTLE 1 DROP EACH EYE ×2 (08:34→20:19)
--- NOTE | 2024-08-09 10:07 | PC.NURSE ---
This patient, Celestina Ewing, was transferred to [[id number]] on 08/09/24 at 1007. Personal belongings sent with patient. Report given to [Luz BEJARANO]. Appropriate documentation sent with patient.
[2024-08-09 11:00] LABS: Potassium 5.1 mmol/L (3.4-5.0)
--- NOTE | 2024-08-09 13:38 | P.PNIM_ITS ---
Progress Note: A&P Assessment and Plan (1) Pneumonia: Code(s): J18.9 - Pneumonia, unspecified organism Status: Acute (2) Altered mental status: Code(s): R41.82 - Altered mental status, unspecified Status: Acute (3) Hypertension: Code(s): I10 - Essential (primary) hypertension Status: Acute (4) Chronic respiratory failure with hypoxia, on home oxygen therapy: Code(s): J96.11 - Chronic respiratory failure with hypoxia; Z99.81 - Dependence on supplemental oxygen Status: Acute (5) Chronic hyponatremia: Code(s): E87.1 - Hypo-osmolality and hyponatremia Status: Acute (6) Bacteriuria with pyuria: Code(s): R82.71 - Bacteriuria; R82.81 - Pyuria Status: Acute (7) Polypharmacy: Code(s): Z79.899 - Other halfway (current) drug therapy Status: Acute Plan The patient presented to the emergency department for evaluation of altered mental status as detailed in HPI. Labs, imaging, EKG, and all reports were personally reviewed. The patient remains confused, likely delirium related to underlying infection with likely some component of cognitive deficit as she is on memantine. No gross focal deficits on exam though will check brain CT. Polypharmacy could be playing a factor as well as underlying infection. Chest x- ray and CT of the abdomen and pelvis showed left-sided pneumonia for which she has been started on azithromycin and ceftriaxone. Left-sided pneumonia could be causing referred pain into the left side of the abdomen as no acute intra- abdominal or pelvic process was identified. Chronic hyponatremia stable on review of previous labs. She is not having urinary symptoms but UA was positive for bacteria and 6 to 11 WBC per high-power field; urine cultures pending. Blood pressures were reviewed and they are stable. Her home medications will be reviewed and resumed as appropriate. 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 Subjective Date/time seen: 08/09/24 13:38 Interval history: Patient WBC continues to trend down. Possible discharge tomorrow Review of Systems Review of Systems: 12 systems were reviewed and are negativ e except for as per HPI however limited due to her confusion. Exam Narrative: General: Ill-appearing female in the semi-Siegel position in bed. Weight: 94.3 kg. BMI: 42.0. HEENT: PERRL, EOMI. Sclera anicteric. Dry mucous membranes. Neck: Supple. No midline vertebral tenderness. Respiratory: Respirations are nonlabored. She is currently on 4.5 L nasal cannula. Lung sounds are diminished at the left base with scattered rales. Cardiovascular: Tachycardic with normal S1-S2. Gastrointestinal: Abdomen is soft, nontender, nondistended with positive bowel sounds. Skin: Warm and dry. No rash or lesions on limited exam. Normal capillary refill. Extremities warm and perfused. Extremities: No cyanosis, clubbing, or right lower extremity edema. Status post left [id number] amputation. Neurological: Alert to name and place. She cannot provide me the current year, her date of , and is somewhat confused regarding situation. Cranial nerves 2-12 are grossly intact. Generally weak without gross focal deficits. Psychiatric: Confused and cooperative. Objective Data Vital Signs Vital Signs: Vital Signs - 24 hr 08/08/24 13:52 08/08/24 14:00 08/08/24 14:07 Temperature Pulse Rate 91 96 93 Respiratory Rate 18 20 Blood Pressure Pulse Oximetry Oxygen Delivery Oxygen Flow Rate Fraction of Inspired Oxygen 08/08/24 16:00 08/08/24 16:00 08/08/24 18:00 Temperature 98.1 F Pulse Rate 98 96 101 H Respiratory Rate 16 Blood Pressure 150/65 H Pulse Oximetry 93 Oxygen Delivery Oxygen Flow Rate Fraction of Inspired Oxygen 08/08/24 19:59 08/08/24 20:00 08/08/24 20:00 Temperature 98.0 F Pulse Rate 100 106 H 106 H Respiratory Rate 16 18 Blood Pressure 155/67 H Pulse Oximetry 98 98 Oxygen Delivery Nasal Cannula Oxygen Flow Rate 4 Fraction of Inspired Oxygen 28 08/08/24 20:10 08/08/24 20:10 08/08/24 20:25 Temperature Pulse Rate 93 105 H Respiratory Rate 18 18 Blood Pressure Pulse Oximetry 98 Oxygen Delivery Nasal Cannula Oxygen Flow Rate 4 Fraction of Inspired Oxygen 08/08/24 20:38 08/08/24 21:32 08/08/24 23:46 Temperature 98.0 F Pulse Rate 106 H 98 86 Respiratory Rate 16 Blood Pressure 178/67 H Pulse Oximetry 98 Oxygen Delivery Oxygen Flow Rate Fraction of Inspired Oxygen 08/09/24 00:00 08/09/24 00:00 08/09/24 02:00 Temperature Pulse Rate 87 87 89 Respiratory Rate 16 Blood Pressure Pulse Oximetry 98 Oxygen Delivery Nasal Cannula Oxygen Flow Rate 4 Fraction of Inspired Oxygen 08/09/24 02:14 08/09/24 02:20 08/09/24 04:00 Temperature Pulse Rate 86 89 85 Respiratory Rate 18 18 18 Blood Pressure Pulse Oximetry 98 Oxygen Delivery Nasal Cannula Oxygen Flow Rate 4 Fraction of Inspired Oxygen 08/09/24 04:00 08/09/24 05:44 08/09/24 06:00 Temperature 98.1 F Pulse Rate 85 91 92 Respiratory Rate 16 Blood Pressure 164/70 H Pulse Oximetry 96 Oxygen Delivery Oxygen Flow Rate Fraction of Inspired Oxygen 08/09/24 06:55 08/09/24 06:55 08/09/24 07:05 Temperature Pulse Rate 97 97 101 H Respiratory Rate 10 L 10 L 18 Blood Pressure Pulse Oximetry 99 Oxygen Delivery Nasal Cannula Oxygen Flow Rate 3 Fraction of Inspired Oxygen 08/09/24 07:20 08/09/24 08:00 08/09/24 08:00 Temperature 98.8 F Pulse Rate 102 H 106 H Respiratory Rate 18 Blood Pressure 171/73 H Pulse Oximetry 97 97 Oxygen Delivery Nasal Cannula Oxygen Flow Rate 2 Fraction of Inspired Oxygen 08/09/24 08:32 08/09/24 10:15 08/09/24 12:00 Temperature 97.7 F 97.7 F Pulse Rate 112 H 79 77 Respiratory Rate 16 16 Blood Pressure 144/63 H 142/66 H Pulse Oximetry 96 96 Oxygen Delivery Oxygen Flow Rate Fraction of Inspired Oxygen Intake/Output Intake/Output: Intake & Output 08/06/24 08/07/24 08/08/24 08/09/24 23:59 23:59 23:59 23:59 Intake Total 1300 1555 2160 3022 Output Total 5218 374 8065 Balance 2240 024 2824 1121 Meds/Results Medications: Active Medications Generic Name Dose Route Start Last Admin Trade Name Freq PRN Reason Stop Dose Admin Acetaminophen 650 mg 08/06/24 10:57 08/08/24 12:31 Acetaminophen 325 Mg Tablet PO 650 mg Q4H PRN Administration Mild Pain (1-3) or Fever Hydrocodone Bitart/Acetaminophen 1 tab 08/06/24 10:57 08/06/24 22:32 Hydrocodone/Acetaminophen (*Crx) 5-325 Mg Tablet PO 1 tab Q4H PRN Administration Pain Rated 4-6 Amlodipine Besylate 10 mg 08/07/24 09:00 08/09/24 08:32 Amlodipine Besylate 10 Mg Tablet PO 10 mg DAILY KELNI Administration Artificial Tears 1 drop 08/07/24 16:43 08/09/24 08:34 Artificial Tears Ophth Soln 15 Ml Bottle EACH EYE 1 drop QID PRN Administration Dry Eye(s) Bisacodyl 10 mg 08/06/24 23:10 Bisacodyl 5 Mg Tablet Ec PO HS PRN Constipation Diclofenac Sodium 1 applic 08/06/24 23:10 Diclofenac Sodium 1% 100 Gm Gel (*Bkc) TOPICAL BID PRN moderate pain (scale score 5-6) Famciclovir 250 mg 08/07/24 09:00 08/09/24 08:32 Famciclovir 250 Mg Tablet PO 250 mg Q12HR KELIN Administration Fluticasone Propionate 2 spray 08/07/24 09:00 08/09/24 08:34 Fluticasone Propionate 0.05% Na Spr 16 Gm Btl (*Bkc) NASAL 2 spray DAILY KELIN Administration Furosemide 10 mg 08/07/24 09:00 08/09/24 08:32 Furosemide 10 Mg Tablet PO 10 mg BID KELIN Administration Guaifenesin 1,200 mg 08/07/24 09:00 08/09/24 08:33 Guaifenesin 12 Hr 600 Mg Tabcr PO 1,200 mg Q12HR KELIN Administration Ceftriaxone Sodium 1 gm in 50 mls @ 100 mls/hr 08/07/24 09:00 08/09/24 10:00 Rocephin 1 Gm/Ns 50 Ml IVPB Infused Q24H KELIN Infusion Azithromycin 500 mg in 250 mls @ 250 mls/hr 08/07/24 09:00 08/09/24 10:07 Zithromax IVPB Infused Q24H KELIN Infusion Ipratropium [place] 0.5 mg 08/08/24 14:00 08/09/24 06:55 Ipratropium Br 0.02% Inh Soln 0.5 Mg/2.5 Ml Vial INHALATION 0.5 mg Q6HRT KELNI Administration Isosorbide Mononitrate 30 mg 08/07/24 09:00 08/09/24 08:32 Isosorbide Mononitrate 30 Mg Tab.Er.24h PO 30 mg DAILY KELIN Administration Levalbuterol HCl 1.25 mg 08/08/24 14:00 08/09/24 06:55 Levalbuterol Neb 1.25 Mg/3 Ml INHALATION 1.25 mg Q6HRT KELIN Administration Lidocaine 2 patch 08/07/24 21:00 08/08/24 20:42 Lidocaine 5% Patch TOPICAL 2 patch HS EKLIN Administration Losartan Potassium 100 mg 08/07/24 09:00 08/09/24 08:32 Losartan Potassium 100 Mg Tablet PO 100 mg DAILY KELIN Administration Memantine 5 mg 08/07/24 09:00 08/09/24 08:32 Memantine 5 Mg Tablet PO 5 mg Q12HR KELIN Administration Metoprolol Tartrate 100 mg 08/06/24 23:15 08/09/24 08:32 Metoprolol Tartrate 50 Mg Tab PO 100 mg Q12HR KELIN Administration Miconazole Nitrate 1 applic 08/06/24 23:24 Miconazole Nitrate 2% Cream 30 Gm Tube TOPICAL BID PRN irritation Ondansetron HCl 4 mg 08/08/24 14:00 08/09/24 06:19 Ondansetron Hcl Odt 4 Mg Tablet PO 4 mg Q8HR KELIN Administration Pantoprazole Sodium 40 mg 08/07/24 09:00 08/09/24 08:32 Pantoprazole 40 Mg Tablet PO 40 mg DAILY KELIN Administration Perflutren Lipid Microsphere 0 ml 08/08/24 10:14 Perflutren Lipid Microspheres 1.5 Ml Vial Diluted To 10 Ml Total Volume IV PUSH 08/11/24 10:14 ONCE PRN adequate visualization Protocol Pregabalin 150 mg 08/08/24 21:00 08/09/24 08:32 Pregabalin (*Crx) 75 Mg Capsule PO 150 mg Q12HR KELIN Administration Primidone 200 mg 08/08/24 21:00 08/09/24 08:32 Primidone 50 Mg Tablet PO 200 mg Q12HR KELIN Administration Rivaroxaban 20 mg 08/08/24 17:00 08/08/24 17:51 Rivaroxaban 20 Mg Tablet PO 20 mg DAILY@1700 KELIN Administration Fluticasone/Salmeterol 2 puff 08/07/24 08:00 08/09/24 06:55 Fluticasone/Salmeterol 115-21 Mcg Inhaler 1 Puff INHALATION 2 puff Q12HRT KELIN Administration Sodium Chloride 2 spray 08/06/24 23:10 Saline 0.65% [place] Soln 44 Ml Btl NASAL PRN PRN Congestion Sodium Chloride 1 gm 08/07/24 09:00 08/09/24 08:32 Sodium Chloride 1 Gm Tablet PO 1 gm BID KELIN Administration Spironolactone 25 mg 08/07/24 09:00 08/09/24 08:32 Spironolactone 25 Mg Tablet PO 25 mg DAILY KELIN Administration Vitamin B Complex/Folic Acid 1 cap 08/07/24 09:00 08/09/24 08:32 Vitamin B Cmplx/Vit C/Folic Ac 1 Capsule PO 1 cap QAM KELIN Administration Vitamin D 5,000 units 08/07/24 09:00 08/09/24 08:32 Cholecalciferol 5,000 Units Tablet PO 5,000 units DAILY KELIN Administration Vitamin E 800 unit 08/07/24 09:00 08/09/24 08:33 Vitamin E 400 Unit Capsule PO 800 unit DAILY KELIN Administration Radiology Results: ITS Impressions Chest X-Ray 08/06/24 09:01 IMPRESSION: Patchy infiltrate of left mid and lower lung, primarily involving left lower lobe, likely due to pneumonia Abdomen/Pelvis CT 08/06/24 09:03 IMPRESSION: Prominent patchy consolidation of left lower lobe consistent with pneumonia Mild dependent right lower lobe infiltrate or atelectasis Borderline heart size Pinpoint nonobstructing lower pole left renal calculus Status post hysterectomy Head CT 08/06/24 21:50 Impression: No acute intracranial hemorrhage or suspicious mass effect. Ventricular dilatation and bifrontal atrophy, far advanced for patient of this age but unchanged dating back to 04/23/2024. Labs Labs: Laboratory Results - last 24 hr 08/09/24 08/09/24 03:30 09:55 WBC 10.4 H RBC 3.58 L Hgb 10.8 L Hct 33.1 L MCV 92.5 MCH 30.2 MCHC 32.6 RDW 12.3 Plt Count 216 MPV 10.5 H Sodium 128 L Potassium 3.3 L 5.1 H Chloride 94 L Carbon Dioxide 27 Anion Gap 7 BUN 7 Creatinine 0.58 L Estim Creat Clear Calc Not Reportable Estimated GFR > 60 Glucose 92 Calcium 8.0 L Total Bilirubin 0.4 AST 75 H ALT 69 H Alkaline Phosphatase 102 Total Protein 6.0 L Albumin 3.1 L Quality VTE Prophylaxis VTE prophylaxis: pharmacologic ordered Hospitalist [facility] Advance Care Plan I have confirmed that the patient's Advanced Care Plan is present, code status is documented, or surrogate decision maker is listed in patient medical record.: Yes Medication Reconciliation I have utilized all available resources to obtain, update and review the patients current medications (includes all prescriptions, OTC, herbals, cannabis, and nutritional supplements).: Yes
[2024-08-09] MEDS: RIVAROXABAN 20 MG TABLET PO (17:05)
[2024-08-09 17:09] LABS: Pneumococcal Antigen Urine NOT DETECTED
[2024-08-09 17:30] LABS: Cholesterol 167 mg/dL (0-200); HDL Direct 25 mg/dL; Triglycerides 198 mg/dL (<150)
[2024-08-09 17:40] LABS: LDL Cholesterol Direct 105 mg/dL
[2024-08-09] MEDS: LIDOCAINE 5% PATCH 2 PATCH TOPICAL (20:24)
[2024-08-09] MEDS: ACETAMINOPHEN 325 MG TABLET 650 MG PO (22:39)
[2024-08-10] VITALS (15 sets, daily range): BP systolic 152–197; BP diastolic 57–78; PULSE 76–99; RESP 18–24; TEMP 36.4–36.9; O2SAT 91–97
[2024-08-10] MEDS: HYDROcodone/acetaminophen (*CRX) 5-325 MG TABLET 1 TAB PO ×4 (00:41→20:54)
[2024-08-10] MEDS: ACETAMINOPHEN 325 MG TABLET 650 MG PO (03:25)
[2024-08-10] MEDS: IMIPRAMINE HCL 25 MG TABLET 75 MG PO (03:25)
[2024-08-10] MEDS: ONDANSETRON HCL ODT 4 MG TABLET PO ×3 (05:33→20:57)
[2024-08-10 05:59] LABS: Hematocrit 31.5 % (37.0-47.0); Hemoglobin 10.8 g/dL (12.0-15.0); Mean Corpuscular HGB Conc 34.3 g/dl (32-36); Mean Corpuscular Hemoglobin 30.9 pg (26-34); Mean Corpuscular Volume 90.3 fl (80-100); Mean Platelet Volume 10.2 fl (7.4-10.4); Platelet Count Result 243 k/mm3 (150-375); Red Blood Count 3.49 M/mm3 (4.2-5.4); Red Cell Distribution Width 12.1 % (11.5-14.5); White Blood Count 9.7 K/mm3 (4.5-10.0)
[2024-08-10 06:15] LABS: Alanine Aminotransferase 54 U/L (6-35); Alkaline Phosphatase 99 U/L (38-126); Anion Gap 7 mmol/L (4-12); Aspartate Amino Transferase 52 U/L (14-36); Bilirubin,Total 0.4 mg/dL (0.2-1.3); Blood Urea Nitrogen 7 mg/dL (7-17); Calcium 8.1 mg/dL (8.4-10.2); Carbon Dioxide 26 mmol/L (22-30); Chloride 93 mmol/L (98-107); Estimated Glomerular Filt Rate > 60; Glucose 87 mg/dL (65-110); Potassium 3.7 mmol/L (3.4-5.0); Sodium 126 mmol/L (137-145)
[2024-08-10] MEDS: FAMCICLOVIR 250 MG TABLET PO ×2 (07:51→20:55)
[2024-08-10] MEDS: SODIUM CHLORIDE 1 GM TABLET PO ×2 (07:51→18:00)
[2024-08-10] MEDS: MEMANTINE 5 MG TABLET PO ×2 (07:51→20:55)
[2024-08-10] MEDS: levoFLOXacin 750 MG TABLET PO (07:52)
[2024-08-10] MEDS: PREGABALIN (*CRX) 75 MG CAPSULE 150 MG PO ×2 (07:52→20:55)
[2024-08-10] MEDS: SPIRONOLACTONE 25 MG TABLET PO (07:52)
[2024-08-10] MEDS: LOSARTAN POTASSIUM 100 MG TABLET PO (07:52)
[2024-08-10] MEDS: ISOSORBIDE MONONITRATE 30 MG TAB.ER.24H PO (07:52)
[2024-08-10] MEDS: guaiFENesin 12 HR 600 MG TABCR 1200 MG PO ×2 (07:53→20:54)
[2024-08-10] MEDS: METOPROLOL TARTRATE 50 MG TAB 100 MG PO ×2 (07:53→20:55)
[2024-08-10] MEDS: amLODIPine BESYLATE 10 MG TABLET PO (07:54)
[2024-08-10] MEDS: CHOLECALCIFEROL 5,000 UNITS TABLET 5000 UNITS PO (07:54)
[2024-08-10] MEDS: VITAMIN E 400 UNIT CAPSULE 800 UNIT PO (07:54)
[2024-08-10] MEDS: VITAMIN B CMPLX/VIT C/FOLIC AC 1 CAPSULE 1 CAP PO (07:54)
[2024-08-10] MEDS: PRIMIDONE 50 MG TABLET 200 MG PO ×2 (07:54→20:54)
[2024-08-10] MEDS: PANTOPRAZOLE 40 MG TABLET PO (07:54)
[2024-08-10] MEDS: FUROSEMIDE 10 MG TABLET PO ×2 (07:54→18:00)
[2024-08-10] MEDS: FLUTICASONE PROPIONATE 0.05% NA SPR 16 GM BTL (*BKC) 2 SPRAY NASAL (07:56)
[2024-08-10] MEDS: ARTIFICIAL TEARS OPHTH SOLN 15 ML BOTTLE 1 DROP EACH EYE ×2 (07:59→18:00)
[2024-08-10] MEDS: IPRATROPIUM BR 0.02% INH SOLN 0.5 MG/2.5 ML VIAL INHALATION ×3 (08:49→20:54)
[2024-08-10] MEDS: LEVALBUTEROL NEB 1.25 MG/3 ML INHALATION ×3 (08:49→20:55)
[2024-08-10] MEDS: FLUTICASONE/SALMETEROL 115-21 MCG INHALER 1 PUFF 2 PUFF INHALATION ×2 (08:50→20:55)
--- NOTE | 2024-08-10 12:17 | PM.IMPN ---
Progress Note: A&P Assessment and Plan (1) Pneumonia: Code(s): J18.9 - Pneumonia, unspecified organism Status: Acute (2) Altered mental status: Code(s): R41.82 - Altered mental status, unspecified Status: Acute (3) Hypertension: Code(s): I10 - Essential (primary) hypertension Status: Acute (4) Chronic respiratory failure with hypoxia, on home oxygen therapy: Code(s): J96.11 - Chronic respiratory failure with hypoxia; Z99.81 - Dependence on supplemental oxygen Status: Acute (5) Chronic hyponatremia: Code(s): E87.1 - Hypo-osmolality and hyponatremia Status: Acute (6) Bacteriuria with pyuria: Code(s): R82.71 - Bacteriuria; R82.81 - Pyuria Status: Acute (7) Polypharmacy: Code(s): Z79.899 - Other mcc (current) drug therapy Status: Acute Plan The patient presented to the emergency department for evaluation of altered mental status as detailed in HPI. Labs, imaging, EKG, and all reports were personally reviewed. The patient remains confused, likely delirium related to underlying infection with likely some component of cognitive deficit as she is on memantine. No gross focal deficits on exam though will check brain CT. Polypharmacy could be playing a factor as well as underlying infection. Chest x-ray and CT of the abdomen and pelvis showed left-sided pneumonia for which she has been started on azithromycin and ceftriaxone. Left-sided pneumonia could be causing referred pain into the left side of the abdomen as no acute intra-abdominal or pelvic process was identified. Chronic hyponatremia stable on review of previous labs. She is not having urinary symptoms but UA was positive for bacteria and 6 to 11 WBC per high-power field; urine cultures pending. Blood pressures were reviewed and they are stable. Her home medications will be reviewed and resumed as appropriate. 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 Subjective Date/time seen: 08/10/24 12:17 Interval history: Patient reports of doing well. She report sore throat and her neuropathy is acting up. Ordered COVID,flu,RSV and strep throat. Review of Systems Review of Systems: 12 systems were reviewed and are negative except for as per HPI however limited due to her confusion. Exam Narrative: General: Ill-appearing female in the semi-Siegel position in bed. Weight: 94.3 kg. BMI: 42.0. HEENT: PERRL, EOMI. Sclera anicteric. Dry mucous membranes. Neck: Supple. No midline vertebral tenderness. Respiratory: Respirations are nonlabored. She is currently on 4.5 L nasal cannula. Lung sounds are diminished at the left base with scattered rales. Cardiovascular: Tachycardic with normal S1-S2. Gastrointestinal: Abdomen is soft, nontender, nondistended with positive bowel sounds. Skin: Warm and dry. No rash or lesions on limited exam. Normal capillary refill. Extremities warm and perfused. Extremities: No cyanosis, clubbing, or right lower extremity edema. Status post left [id number] amputation. Neurological: Alert to name and place. She cannot provide me the current year, her date of , and is somewhat confused regarding situation. Cranial nerves 2-12 are grossly intact. Generally weak without gross focal deficits. Psychiatric: Confused and cooperative. Objective Data Vital Signs Vital Signs: Vital Signs - 24 hr 08/09/24 12:45 08/09/24 12:55 08/09/24 16:00 Temperature 97.7 F Pulse Rate 63 65 92 Respiratory Rate 18 18 16 Blood Pressure 142/60 H Pulse Oximetry 94 Oxygen Delivery Oxygen Flow Rate 08/09/24 16:00 08/09/24 20:00 08/09/24 20:00 Temperature 98.2 F Pulse Rate 89 95 Respiratory Rate 18 Blood Pressure 194/76 H Pulse Oximetry 98 97 Oxygen Delivery Nasal Cannula Oxygen Flow Rate 2 08/09/24 20:00 08/09/24 20:15 08/09/24 20:23 Temperature Pulse Rate 90 95 97 Respiratory Rate 18 Blood Pressure Pulse Oximetry Oxygen Delivery Oxygen Flow Rate 08/09/24 20:27 08/09/24 21:00 08/10/24 00:00 Temperature Pulse Rate 97 89 77 Respiratory Rate 18 Blood Pressure Pulse Oximetry 96 Oxygen Delivery Nasal Cannula Oxygen Flow Rate 2 08/10/24 00:00 08/10/24 04:00 08/10/24 04:00 Temperature 98.1 F 97.6 F Pulse Rate 83 76 90 Respiratory Rate 18 18 Blood Pressure 183/76 H 197/78 H Pulse Oximetry 97 96 Oxygen Delivery Oxygen Flow Rate 08/10/24 07:53 08/10/24 08:00 08/10/24 08:00 Temperature 97.7 F Pulse Rate 91 87 Respiratory Rate 18 Blood Pressure 195/70 H Pulse Oximetry 97 96 Oxygen Delivery Nasal Cannula Oxygen Flow Rate 2 08/10/24 08:00 08/10/24 08:50 08/10/24 08:53 Temperature Pulse Rate 81 76 Respiratory Rate 22 H Blood Pressure Pulse Oximetry 96 Oxygen Delivery Nasal Cannula Oxygen Flow Rate 2 08/10/24 09:03 08/10/24 12:00 Temperature Pulse Rate 80 82 Respiratory Rate 22 H Blood Pressure Pulse Oximetry Oxygen Delivery Oxygen Flow Rate Intake/Output Intake/Output: Intake & Output 08/07/24 08/08/24 08/09/24 08/10/24 23:59 23:59 23:59 23:59 Intake Total 1555 2160 3262 120 Output Total 4858 636 5238 2100 Balance 205 1510 561 -1980 Meds/Results Medications: Active Medications Generic Name Dose Route Start Last Admin Trade Name Freq PRN Reason Stop Dose Admin Acetaminophen 650 mg 08/06/24 10:57 08/10/24 03:25 Acetaminophen 325 Mg Tablet PO 650 mg Q4H PRN Administration Mild Pain (1-3) or Fever Hydrocodone Bitart/Acetaminophen 1 tab 08/06/24 10:57 08/10/24 06:06 Hydrocodone/Acetaminophen (*Crx) 5-325 Mg Tablet PO 1 tab Q4H PRN Administration Pain Rated 4-6 Amlodipine Besylate 10 mg 08/07/24 09:00 08/10/24 07:54 Amlodipine Besylate 10 Mg Tablet PO 10 mg DAILY KELIN Administration Artificial Tears 1 drop 08/07/24 16:43 08/10/24 07:59 Artificial Tears Ophth Soln 15 Ml Bottle EACH EYE 1 drop QID PRN Administration Dry Eye(s) Bisacodyl 10 mg 08/06/24 23:10 Bisacodyl 5 Mg Tablet Ec PO HS PRN Constipation Diclofenac Sodium 1 applic 08/06/24 23:10 Diclofenac Sodium 1% 100 Gm Gel (*Bkc) TOPICAL BID PRN moderate pain (scale score 5-6) Famciclovir 250 mg 08/07/24 09:00 08/10/24 07:51 Famciclovir 250 Mg Tablet PO 250 mg Q12HR KELIN Administration Fluticasone Propionate 2 spray 08/07/24 09:00 08/10/24 07:56 Fluticasone Propionate 0.05% Na Spr 16 Gm Btl (*Bkc) NASAL 2 spray DAILY KELIN Administration Furosemide 10 mg 08/07/24 09:00 08/10/24 07:54 Furosemide 10 Mg Tablet PO 10 mg BID KELIN Administration Guaifenesin 1,200 mg 08/07/24 09:00 08/10/24 07:53 Guaifenesin 12 Hr 600 Mg Tabcr PO 1,200 mg Q12HR KELIN Administration Ipratropium [place] 0.5 mg 08/08/24 14:00 08/10/24 08:49 Ipratropium Br 0.02% Inh Soln 0.5 Mg/2.5 Ml Vial INHALATION 0.5 mg Q6HRT KELIN Administration Isosorbide Mononitrate 30 mg 08/07/24 09:00 08/10/24 07:52 Isosorbide Mononitrate 30 Mg Tab.Er.24h PO 30 mg DAILY KELIN Administration Levalbuterol HCl 1.25 mg 08/08/24 14:00 08/10/24 08:49 Levalbuterol Neb 1.25 Mg/3 Ml INHALATION 1.25 mg Q6HRT KELIN Administration Levofloxacin 750 mg 08/10/24 09:00 08/10/24 07:52 Levofloxacin 750 Mg Tablet PO 08/14/24 09:01 750 mg DAILY KELIN Administration Lidocaine 2 patch 08/07/24 21:00 08/09/24 20:24 Lidocaine 5% Patch TOPICAL 2 patch HS KELIN Administration Losartan Potassium 100 mg 08/07/24 09:00 08/10/24 07:52 Losartan Potassium 100 Mg Tablet PO 100 mg DAILY KELIN Administration Memantine 5 mg 08/07/24 09:00 08/10/24 07:51 Memantine 5 Mg Tablet PO 5 mg Q12HR KELIN Administration Metoprolol Tartrate 100 mg 08/06/24 23:15 08/10/24 07:53 Metoprolol Tartrate 50 Mg Tab PO 100 mg Q12HR KELIN Administration Miconazole Nitrate 1 applic 08/06/24 23:24 Miconazole Nitrate 2% Cream 30 Gm Tube TOPICAL BID PRN irritation Ondansetron HCl 4 mg 08/08/24 14:00 08/10/24 05:33 Ondansetron Hcl Odt 4 Mg Tablet PO 4 mg Q8HR KELIN Administration Pantoprazole Sodium 40 mg 08/07/24 09:00 08/10/24 07:54 Pantoprazole 40 Mg Tablet PO 40 mg DAILY KELIN Administration Perflutren Lipid Microsphere 0 ml 08/08/24 10:14 Perflutren Lipid Microspheres 1.5 Ml Vial Diluted To 10 Ml Total Volume IV PUSH 08/11/24 10:14 ONCE PRN adequate visualization Protocol Pregabalin 150 mg 08/08/24 21:00 08/10/24 07:52 Pregabalin (*Crx) 75 Mg Capsule PO 150 mg Q12HR KELIN Administration Primidone 200 mg 08/08/24 21:00 08/10/24 07:54 Primidone 50 Mg Tablet PO 200 mg Q12HR KELIN Administration Rivaroxaban 20 mg 08/08/24 17:00 08/09/24 17:05 Rivaroxaban 20 Mg Tablet PO 20 mg DAILY@1700 KELIN Administration Fluticasone/Salmeterol 2 puff 08/07/24 08:00 08/10/24 08:50 Fluticasone/Salmeterol 115-21 Mcg Inhaler 1 Puff INHALATION 2 puff Q12HRT KELIN Administration Sodium Chloride 2 spray 08/06/24 23:10 Saline 0.65% [place] Soln 44 Ml Btl NASAL PRN PRN Congestion Sodium Chloride 1 gm 08/07/24 09:00 08/10/24 07:51 Sodium Chloride 1 Gm Tablet PO 1 gm BID KELIN Administration Spironolactone 25 mg 08/07/24 09:00 08/10/24 07:52 Spironolactone 25 Mg Tablet PO 25 mg DAILY [facility] Administration Vitamin B Complex/Folic Acid 1 cap 08/07/24 09:00 08/10/24 07:54 Vitamin B Cmplx/Vit C/Folic Ac 1 Capsule PO 1 cap QAM [facility] Administration Vitamin D 5,000 units 08/07/24 09:00 08/10/24 07:54 Cholecalciferol 5,000 Units Tablet PO 5,000 units DAILY KELIN Administration Vitamin E 800 unit 08/07/24 09:00 08/10/24 07:54 Vitamin E 400 Unit Capsule PO 800 unit DAILY KELIN Administration Radiology Results: ITS Impressions Chest X-Ray 08/06/24 09:01 IMPRESSION: Patchy infiltrate of left mid and lower lung, primarily involving left lower lobe, likely due to pneumonia Abdomen/Pelvis CT 08/06/24 09:03 IMPRESSION: Prominent patchy consolidation of left lower lobe consistent with pneumonia Mild dependent right lower lobe infiltrate or atelectasis Borderline heart size Pinpoint nonobstructing lower pole left renal calculus Status post hysterectomy Head CT 08/06/24 21:50 Impression: No acute intracranial hemorrhage or suspicious mass effect. Ventricular dilatation and bifrontal atrophy, far advanced for patient of this age but unchanged dating back to 04/23/2024. Labs Labs: Laboratory Results - last 24 hr 08/06/24 08/09/24 08/10/24 22:35 17:09 05:00 WBC 9.7 RBC 3.49 L Hgb 10.8 L Hct 31.5 L MCV 90.3 MCH 30.9 MCHC 34.3 RDW 12.1 Plt Count 243 MPV 10.2 Sodium 126 L Potassium 3.7 Chloride 93 L Carbon Dioxide 26 Anion Gap 7 BUN 7 Creatinine 0.60 L Estim Creat Clear Calc Not Reportable Estimated GFR > 60 Glucose 87 Calcium 8.1 L Total Bilirubin 0.4 AST 52 H ALT 54 H Alkaline Phosphatase 99 Total Protein 6.0 L Albumin 3.0 L Triglycerides 198 H Cholesterol 167 LDL Cholesterol Direct 105 HDL Direct 25 Urine Pneumococcal Ag Not detected Quality VTE Prophylaxis VTE prophylaxis: pharmacologic ordered Hospitalist [facility] Advance Care Plan I have confirmed that the patient's Advanced Care Plan is present, code status is documented, or surrogate decision maker is listed in patient medical record.: Yes Medication Reconciliation I have utilized all available resources to obtain, update and review the patients current medications (includes all prescriptions, OTC, herbals, cannabis, and nutritional supplements).: Yes
[2024-08-10] MEDS: diphenhydrAMINE HCl INJ 50 MG/ML VIAL 15 MG IV PUSH (15:37)
[2024-08-10] MEDS: RIVAROXABAN 20 MG TABLET PO (18:00)
[2024-08-10 18:43] LABS: Strep Group A RT-PCR NOT DETECTED (Negative)
[2024-08-10 19:36] LABS: Influenza A QL RT-PCR Negative (Negative); Influenza B QL RT-PCR Negative (Negative); RSV RNA, RT-PCR Negative (Negative); SARS-CoV-2 RNA PCR Negative (Negative)
[2024-08-10] MEDS: LIDOCAINE 5% PATCH 2 PATCH TOPICAL (20:56)
[2024-08-11] VITALS (16 sets, daily range): BP systolic 168–201; BP diastolic 64–87; PULSE 73–888; RESP 14–20; TEMP 36.6–36.8; O2SAT 90–98
[2024-08-11] MEDS: HYDROcodone/acetaminophen (*CRX) 5-325 MG TABLET 1 TAB PO ×3 (02:47→17:22)
[2024-08-11 05:53] LABS: Hemoglobin 11.9 g/dL (12.0-15.0); Mean Corpuscular Hemoglobin 29.9 pg (26-34); Mean Corpuscular Volume 87.9 fl (80-100); Mean Platelet Volume 9.3 fl (7.4-10.4); Platelet Count Result 266 k/mm3 (150-375); Red Blood Count 3.98 M/mm3 (4.2-5.4); Red Cell Distribution Width 11.9 % (11.5-14.5); White Blood Count 10.9 K/mm3 (4.5-10.0)
[2024-08-11] MEDS: ONDANSETRON HCL ODT 4 MG TABLET PO ×3 (06:00→21:12)
[2024-08-11 06:07] LABS: Alanine Aminotransferase 49 U/L (6-35); Albumin Level 3.3 g/dL (3.5-5.1); Alkaline Phosphatase 104 U/L (38-126); Anion Gap 8 mmol/L (4-12); Aspartate Amino Transferase 39 U/L (14-36); Bilirubin,Total 0.4 mg/dL (0.2-1.3); Blood Urea Nitrogen 6 mg/dL (7-17); Calcium 8.5 mg/dL (8.4-10.2); Carbon Dioxide 27 mmol/L (22-30); Chloride 90 mmol/L (98-107); Estimated Glomerular Filt Rate > 60; Glucose 93 mg/dL (65-110); Potassium 3.8 mmol/L (3.4-5.0); Sodium 125 mmol/L (137-145)
[2024-08-11] MEDS: LEVALBUTEROL NEB 1.25 MG/3 ML INHALATION ×3 (07:50→21:38)
[2024-08-11] MEDS: IPRATROPIUM BR 0.02% INH SOLN 0.5 MG/2.5 ML VIAL INHALATION ×3 (07:51→21:38)
[2024-08-11] MEDS: FLUTICASONE/SALMETEROL 115-21 MCG INHALER 1 PUFF 2 PUFF INHALATION ×2 (07:51→21:38)
[2024-08-11] MEDS: SODIUM CHLORIDE 1 GM TABLET PO ×2 (08:26→17:19)
[2024-08-11] MEDS: guaiFENesin 12 HR 600 MG TABCR 1200 MG PO ×2 (08:26→21:12)
[2024-08-11] MEDS: CHOLECALCIFEROL 5,000 UNITS TABLET 5000 UNITS PO (08:27)
[2024-08-11] MEDS: levoFLOXacin 750 MG TABLET PO (08:27)
[2024-08-11] MEDS: hydrALAZINE 5 MG TABLET PO (08:27)
[2024-08-11] MEDS: VITAMIN B CMPLX/VIT C/FOLIC AC 1 CAPSULE 1 CAP PO (08:27)
[2024-08-11] MEDS: PANTOPRAZOLE 40 MG TABLET PO (08:27)
[2024-08-11] MEDS: MEMANTINE 5 MG TABLET PO ×2 (08:27→21:13)
[2024-08-11] MEDS: ISOSORBIDE MONONITRATE 30 MG TAB.ER.24H PO (08:27)
[2024-08-11] MEDS: VITAMIN E 400 UNIT CAPSULE 800 UNIT PO (08:27)
[2024-08-11] MEDS: SPIRONOLACTONE 25 MG TABLET PO (08:28)
[2024-08-11] MEDS: amLODIPine BESYLATE 10 MG TABLET PO (08:28)
[2024-08-11] MEDS: PRIMIDONE 50 MG TABLET 200 MG PO ×2 (08:28→21:13)
[2024-08-11] MEDS: FUROSEMIDE 10 MG TABLET PO ×2 (08:28→17:19)
[2024-08-11] MEDS: FAMCICLOVIR 250 MG TABLET PO ×2 (08:28→21:13)
[2024-08-11] MEDS: METOPROLOL TARTRATE 50 MG TAB 100 MG PO ×2 (08:28→21:12)
[2024-08-11] MEDS: LOSARTAN POTASSIUM 100 MG TABLET PO (08:28)
[2024-08-11] MEDS: PREGABALIN (*CRX) 75 MG CAPSULE 150 MG PO ×2 (08:28→21:13)
[2024-08-11] MEDS: FLUTICASONE PROPIONATE 0.05% NA SPR 16 GM BTL (*BKC) 2 SPRAY NASAL (08:29)
[2024-08-11 09:44] LABS: Mycoplasma IgM Antibody Titer 111 U/mL
--- NOTE | 2024-08-11 12:18 | P.PNIM_ITS ---
Progress Note: A&P Assessment and Plan (1) Pneumonia: Code(s): J18.9 - Pneumonia, unspecified organism Status: Acute (2) Altered mental status: Code(s): R41.82 - Altered mental status, unspecified Status: Acute (3) Hypertension: Code(s): I10 - Essential (primary) hypertension Status: Acute (4) Chronic respiratory failure with hypoxia, on home oxygen therapy: Code(s): J96.11 - Chronic respiratory failure with hypoxia; Z99.81 - Dependence on supplemental oxygen Status: Acute (5) Chronic hyponatremia: Code(s): E87.1 - Hypo-osmolality and hyponatremia Status: Acute (6) Bacteriuria with pyuria: Code(s): R82.71 - Bacteriuria; R82.81 - Pyuria Status: Acute (7) Polypharmacy: Code(s): Z79.899 - Other intermediate (current) drug therapy Status: Acute Plan The patient presented to the emergency department for evaluation of altered mental status as detailed in HPI. Labs, imaging, EKG, and all reports were personally reviewed. The patient remains confused, likely delirium related to underlying infection with likely some component of cognitive deficit as she is on memantine. No gross focal deficits on exam though will check brain CT. Polypharmacy could be playing a factor as well as underlying infection. Chest x- ray and CT of the abdomen and pelvis showed left-sided pneumonia for which she has been started on azithromycin and ceftriaxone. Left-sided pneumonia could be causing referred pain into the left side of the abdomen as no acute intra- abdominal or pelvic process was identified. Chronic hyponatremia stable on review of previous labs. She is not having urinary symptoms but UA was positive for bacteria and 6 to 11 WBC per high-power field; urine cultures pending. Blood pressures were reviewed and they are stable. Her home medications will be reviewed and resumed as appropriate. 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 Subjective Date/time seen: 08/11/24 12:18 Interval history: yesterday ordered COVID,flu,RSV and strep throat which was negative.Patient wants her anxiety medication to be restarted. Review of Systems Review of Systems: 12 systems were reviewed and are negativ e except for as per HPI however limited due to her confusion. Exam Narrative: General: Ill-appearing female in the semi-Siegel position in bed. Weight: 94.3 kg. BMI: 42.0. HEENT: PERRL, EOMI. Sclera anicteric. Dry mucous membranes. Neck: Supple. No midline vertebral tenderness. Respiratory: Respirations are nonlabored. She is currently on 4.5 L nasal cannula. Lung sounds are diminished at the left base with scattered rales. Cardiovascular: Tachycardic with normal S1-S2. Gastrointestinal: Abdomen is soft, nontender, nondistended with positive bowel sounds. Skin: Warm and dry. No rash or lesions on limited exam. Normal capillary refill. Extremities warm and perfused. Extremities: No cyanosis, clubbing, or right lower extremity edema. Status post left [id number] amputation. Neurological: Alert to name and place. She cannot provide me the current year, her date of , and is somewhat confused regarding situation. Cranial nerves 2-12 are grossly intact. Generally weak without gross focal deficits. Psychiatric: Confused and cooperative. Objective Data Vital Signs Vital Signs: Vital Signs - 24 hr 08/10/24 14:41 08/10/24 16:00 08/10/24 20:00 Temperature 98.5 F Pulse Rate 92 94 96 Respiratory Rate 24 H 20 Blood Pressure 190/75 H Pulse Oximetry 91 Oxygen Delivery Oxygen Flow Rate 08/10/24 20:00 08/10/24 20:00 08/10/24 20:55 Temperature Pulse Rate 99 96 Respiratory Rate Blood Pressure Pulse Oximetry 97 Oxygen Delivery Room Air Oxygen Flow Rate 08/10/24 20:55 08/10/24 21:02 08/10/24 21:13 Temperature Pulse Rate 76 84 Respiratory Rate 20 20 Blood Pressure Pulse Oximetry 97 Oxygen Delivery Nasal Cannula Oxygen Flow Rate 2 08/10/24 23:43 08/11/24 00:00 08/11/24 04:00 Temperature 98.2 F Pulse Rate 77 80 80 Respiratory Rate 20 Blood Pressure 185/69 H Pulse Oximetry 97 Oxygen Delivery Oxygen Flow Rate 08/11/24 04:00 08/11/24 07:51 08/11/24 07:51 Temperature 97.9 F Pulse Rate 86 92 Respiratory Rate 20 20 Blood Pressure 189/72 H Pulse Oximetry 98 94 Oxygen Delivery Nasal Cannula Oxygen Flow Rate 2 08/11/24 08:00 08/11/24 08:00 08/11/24 08:00 Temperature Pulse Rate 90 99 94 Respiratory Rate 20 16 Blood Pressure 201/87 H Pulse Oximetry 94 Oxygen Delivery Oxygen Flow Rate 08/11/24 08:25 08/11/24 08:28 08/11/24 10:45 Temperature Pulse Rate 80 Respiratory Rate Blood Pressure 168/64 H Pulse Oximetry Oxygen Delivery Room Air Oxygen Flow Rate Intake/Output Intake/Output: Intake & Output 08/08/24 08/09/24 08/10/24 08/11/24 23:59 23:59 23:59 23:59 Intake Total 2160 3262 360 830 Output Total 650 2701 3900 500 Balance 1510 561 -3540 330 Meds/Results Medications: Active Medications Generic Name Dose Route Start Last Admin Trade Name Freq PRN Reason Stop Dose Admin Acetaminophen 650 mg 08/06/24 10:57 08/10/24 03:25 Acetaminophen 325 Mg Tablet PO 650 mg Q4H PRN Administration Mild Pain (1-3) or Fever Hydrocodone Bitart/Acetaminophen 1 tab 08/06/24 10:57 08/11/24 10:44 Hydrocodone/Acetaminophen (*Crx) 5-325 Mg Tablet PO 1 tab Q4H PRN Administration Pain Rated 4-6 Amlodipine Besylate 10 mg 08/07/24 09:00 08/11/24 08:28 Amlodipine Besylate 10 Mg Tablet PO 10 mg DAILY [facility]ELIN Administration Artificial Tears 1 drop 08/07/24 16:43 08/10/24 18:00 Artificial Tears Ophth Soln 15 Ml Bottle EACH EYE 1 drop QID PRN Administration Dry Eye(s) Bisacodyl 10 mg 08/06/24 23:10 Bisacodyl 5 Mg Tablet Ec PO HS PRN Constipation Diclofenac Sodium 1 applic 08/06/24 23:10 Diclofenac Sodium 1% 100 Gm Gel (*Bkc) TOPICAL BID PRN moderate pain (scale score 5-6) Famciclovir 250 mg 08/07/24 09:00 08/11/24 08:28 Famciclovir 250 Mg Tablet PO 250 mg Q12HR KELIN Administration Fluticasone Propionate 2 spray 08/07/24 09:00 08/11/24 08:29 Fluticasone Propionate 0.05% Na Spr 16 Gm Btl (*Bkc) NASAL 2 spray DAILY KELIN Administration Furosemide 10 mg 08/07/24 09:00 08/11/24 08:28 Furosemide 10 Mg Tablet PO 10 mg BID KELIN Administration Guaifenesin 1,200 mg 08/07/24 09:00 08/11/24 08:26 Guaifenesin 12 Hr 600 Mg Tabcr PO 1,200 mg Q12HR KELIN Administration Hydralazine HCl 5 mg 08/11/24 09:00 08/11/24 08:27 Hydralazine 5 Mg Tablet PO 5 mg QID KELIN Administration Ipratropium [place] 0.5 mg 08/08/24 14:00 08/11/24 07:51 Ipratropium Br 0.02% Inh Soln 0.5 Mg/2.5 Ml Vial INHALATION 0.5 mg Q6HRT KELIN Administration Isosorbide Mononitrate 30 mg 08/07/24 09:00 08/11/24 08:27 Isosorbide Mononitrate 30 Mg Tab.Er.24h PO 30 mg DAILY KELIN Administration Levalbuterol HCl 1.25 mg 08/08/24 14:00 08/11/24 07:50 Levalbuterol Neb 1.25 Mg/3 Ml INHALATION 1.25 mg Q6HRT KELIN Administration Levofloxacin 750 mg 08/10/24 09:00 08/11/24 08:27 Levofloxacin 750 Mg Tablet PO 08/14/24 09:01 750 mg DAILY KELIN Administration Lidocaine 2 patch 08/07/24 21:00 08/10/24 20:56 Lidocaine 5% Patch TOPICAL 2 patch HS KELIN Administration Losartan Potassium 100 mg 08/07/24 09:00 08/11/24 08:28 Losartan Potassium 100 Mg Tablet PO 100 mg DAILY KELIN Administration Memantine 5 mg 08/07/24 09:00 08/11/24 08:27 Memantine 5 Mg Tablet PO 5 mg Q12HR KELIN Administration Metoprolol Tartrate 100 mg 08/06/24 23:15 08/11/24 08:28 Metoprolol Tartrate 50 Mg Tab PO 100 mg Q12HR KELIN Administration Miconazole Nitrate 1 applic 08/06/24 23:24 Miconazole Nitrate 2% Cream 30 Gm Tube TOPICAL BID PRN irritation Ondansetron HCl 4 mg 08/08/24 14:00 08/11/24 06:00 Ondansetron Hcl Odt 4 Mg Tablet PO 4 mg Q8HR KELIN Administration Pantoprazole Sodium 40 mg 08/07/24 09:00 08/11/24 08:27 Pantoprazole 40 Mg Tablet PO 40 mg DAILY [facility] Administration Pregabalin 150 mg 08/08/24 21:00 08/11/24 08:28 Pregabalin (*Crx) 75 Mg Capsule PO 150 mg Q12HR KELIN Administration Primidone 200 mg 08/08/24 21:00 08/11/24 08:28 Primidone 50 Mg Tablet PO 200 mg Q12HR KELIN Administration Rivaroxaban 20 mg 08/08/24 17:00 08/10/24 18:00 Rivaroxaban 20 Mg Tablet PO 20 mg DAILY@1700 [facility] Administration Fluticasone/Salmeterol 2 puff 08/07/24 08:00 08/11/24 07:51 Fluticasone/Salmeterol 115-21 Mcg Inhaler 1 Puff INHALATION 2 puff Q12HRT [facility] Administration Sodium Chloride 2 spray 08/06/24 23:10 Saline 0.65% [place]ordo Soln 44 Ml Btl NASAL PRN PRN Congestion Sodium Chloride 1 gm 08/07/24 09:00 08/11/24 08:26 Sodium Chloride 1 Gm Tablet PO 1 gm BID [facility] Administration Spironolactone 25 mg 08/07/24 09:00 08/11/24 08:28 Spironolactone 25 Mg Tablet PO 25 mg DAILY [facility] Administration Vitamin B Complex/Folic Acid 1 cap 08/07/24 09:00 08/11/24 08:27 Vitamin B Cmplx/Vit C/Folic Ac 1 Capsule PO 1 cap QAM [facility] Administration Vitamin D 5,000 units 08/07/24 09:00 08/11/24 08:27 Cholecalciferol 5,000 Units Tablet PO 5,000 units DAILY [facility] Administration Vitamin E 800 unit 08/07/24 09:00 08/11/24 08:27 Vitamin E 400 Unit Capsule PO 800 unit DAILY [facility] Administration Radiology Results: ITS Impressions Chest X-Ray 08/06/24 09:01 IMPRESSION: Patchy infiltrate of left mid and lower lung, primarily involving left lower lobe, likely due to pneumonia Abdomen/Pelvis CT 08/06/24 09:03 IMPRESSION: Prominent patchy consolidation of left lower lobe consistent with pneumonia Mild dependent right lower lobe infiltrate or atelectasis Borderline heart size Pinpoint nonobstructing lower pole left renal calculus Status post hysterectomy Head CT 08/06/24 21:50 Impression: No acute intracranial hemorrhage or suspicious mass effect. Ventricular dilatation and bifrontal atrophy, far advanced for patient of this age but unchanged dating back to 04/23/2024. Labs Labs: Laboratory Results - last 24 hr 08/06/24 08/10/24 08/11/24 18:37 18:04 05:37 WBC 10.9 H RBC 3.98 L Hgb 11.9 L Hct 35.0 L MCV 87.9 MCH 29.9 MCHC 34.0 RDW 11.9 Plt Count 266 MPV 9.3 Sodium 125 L Potassium 3.8 Chloride 90 L Carbon Dioxide 27 Anion Gap 8 BUN 6 L Creatinine 0.56 L Estim Creat Clear Calc Not Reportable Estimated GFR > 60 Glucose 93 Calcium 8.5 Total Bilirubin 0.4 AST 39 H ALT 49 H Alkaline Phosphatase 104 Total Protein 6.0 L Albumin 3.3 L Influenza A (RT-PCR) Negative Influenza B (RT-PCR) Negative Mycoplasma pneumon IgM 111 RSV (RT-PCR) Negative SARS-CoV-2 RNA (RT-PCR) Negative Group A Strep (PCR) Not detected Quality VTE Prophylaxis VTE prophylaxis: pharmacologic ordered Hospitalist [facility] Advance Care Plan I have confirmed that the patient's Advanced Care Plan is present, code status is documented, or surrogate decision maker is listed in patient medical record.: Yes Medication Reconciliation I have utilized all available resources to obtain, update and review the patients current medications (includes all prescriptions, OTC, herbals, cannabis, and nutritional supplements).: Yes
[2024-08-11] MEDS: hydrALAZINE 10 MG TABLET PO ×3 (14:14→21:13)
[2024-08-11] MEDS: LORazepam (*CRX) 0.5 MG TABLET PO ×2 (14:14→21:12)
[2024-08-11] MEDS: RIVAROXABAN 20 MG TABLET PO (17:19)
[2024-08-11] MEDS: LIDOCAINE 5% PATCH 2 PATCH TOPICAL (21:14)
[2024-08-12] VITALS (18 sets, daily range): BP systolic 128–185; BP diastolic 60–74; PULSE 60–96; RESP 12–20; TEMP 36.8–37.2; O2SAT 93–98
[2024-08-12] MEDS: HYDROcodone/acetaminophen (*CRX) 5-325 MG TABLET 1 TAB PO ×4 (01:11→22:14)
[2024-08-12] MEDS: LORazepam (*CRX) 0.5 MG TABLET PO ×4 (03:22→22:14)
[2024-08-12] MEDS: ONDANSETRON HCL ODT 4 MG TABLET PO ×3 (05:04→21:03)
[2024-08-12 05:43] LABS: Hematocrit 37.7 % (37.0-47.0); Hemoglobin 12.8 g/dL (12.0-15.0); Mean Corpuscular Hemoglobin 30.3 pg (26-34); Mean Corpuscular Volume 89.3 fl (80-100); Mean Platelet Volume 9.9 fl (7.4-10.4); Platelet Count Result 343 k/mm3 (150-375); Red Blood Count 4.22 M/mm3 (4.2-5.4); Red Cell Distribution Width 12.4 % (11.5-14.5); White Blood Count 11.7 K/mm3 (4.5-10.0)
[2024-08-12 05:53] LABS: Alanine Aminotransferase 49 U/L (6-35); Albumin Level 3.4 g/dL (3.5-5.1); Alkaline Phosphatase 106 U/L (38-126); Anion Gap 7 mmol/L (4-12); Aspartate Amino Transferase 36 U/L (14-36); Bilirubin,Total 0.3 mg/dL (0.2-1.3); Blood Urea Nitrogen 6 mg/dL (7-17); Calcium 8.8 mg/dL (8.4-10.2); Carbon Dioxide 30 mmol/L (22-30); Chloride 90 mmol/L (98-107); Estimated Glomerular Filt Rate > 60; Glucose 97 mg/dL (65-110); Potassium 3.7 mmol/L (3.4-5.0); Sodium 127 mmol/L (137-145)
[2024-08-12] MEDS: LEVALBUTEROL NEB 1.25 MG/3 ML INHALATION ×3 (08:23→20:52)
[2024-08-12] MEDS: IPRATROPIUM BR 0.02% INH SOLN 0.5 MG/2.5 ML VIAL INHALATION ×3 (08:23→20:53)
[2024-08-12] MEDS: FLUTICASONE/SALMETEROL 115-21 MCG INHALER 1 PUFF 2 PUFF INHALATION ×2 (08:24→20:53)
[2024-08-12] MEDS: FAMCICLOVIR 250 MG TABLET PO ×2 (09:07→21:04)
[2024-08-12] MEDS: hydrALAZINE 10 MG TABLET PO ×4 (09:07→21:04)
[2024-08-12] MEDS: SODIUM CHLORIDE 1 GM TABLET PO ×2 (09:07→17:52)
[2024-08-12] MEDS: SPIRONOLACTONE 25 MG TABLET PO (09:07)
[2024-08-12] MEDS: MEMANTINE 5 MG TABLET PO ×2 (09:07→21:03)
[2024-08-12] MEDS: guaiFENesin 12 HR 600 MG TABCR 1200 MG PO ×2 (09:07→21:03)
[2024-08-12] MEDS: METOPROLOL TARTRATE 50 MG TAB 100 MG PO ×2 (09:07→21:03)
[2024-08-12] MEDS: ISOSORBIDE MONONITRATE 30 MG TAB.ER.24H PO (09:07)
[2024-08-12] MEDS: PRIMIDONE 50 MG TABLET 200 MG PO ×2 (09:08→21:04)
[2024-08-12] MEDS: levoFLOXacin 750 MG TABLET PO (09:08)
[2024-08-12] MEDS: LOSARTAN POTASSIUM 100 MG TABLET PO (09:08)
[2024-08-12] MEDS: PANTOPRAZOLE 40 MG TABLET PO (09:08)
[2024-08-12] MEDS: VITAMIN E 400 UNIT CAPSULE 800 UNIT PO (09:08)
[2024-08-12] MEDS: FUROSEMIDE 10 MG TABLET PO ×2 (09:08→17:52)
[2024-08-12] MEDS: amLODIPine BESYLATE 10 MG TABLET PO (09:08)
[2024-08-12] MEDS: VITAMIN B CMPLX/VIT C/FOLIC AC 1 CAPSULE 1 CAP PO (09:08)
[2024-08-12] MEDS: PREGABALIN (*CRX) 75 MG CAPSULE 150 MG PO ×2 (09:08→21:03)
[2024-08-12] MEDS: CHOLECALCIFEROL 5,000 UNITS TABLET 5000 UNITS PO (09:08)
[2024-08-12] MEDS: ARTIFICIAL TEARS OPHTH SOLN 15 ML BOTTLE 1 DROP EACH EYE (14:06)
--- NOTE | 2024-08-12 15:24 | P.PNIM_ITS ---
Progress Note: A&P Assessment and Plan (1) Pneumonia: Code(s): J18.9 - Pneumonia, unspecified organism Status: Acute (2) Altered mental status: Code(s): R41.82 - Altered mental status, unspecified Status: Acute (3) Hypertension: Code(s): I10 - Essential (primary) hypertension Status: Acute (4) Chronic respiratory failure with hypoxia, on home oxygen therapy: Code(s): J96.11 - Chronic respiratory failure with hypoxia; Z99.81 - Dependence on supplemental oxygen Status: Acute (5) Chronic hyponatremia: Code(s): E87.1 - Hypo-osmolality and hyponatremia Status: Acute (6) Bacteriuria with pyuria: Code(s): R82.71 - Bacteriuria; R82.81 - Pyuria Status: Acute (7) Polypharmacy: Code(s): Z79.899 - Other senior care (current) drug therapy Status: Acute Plan The patient presented to the emergency department for evaluation of altered mental status as detailed in HPI. Labs, imaging, EKG, and all reports were personally reviewed. The patient remains confused, likely delirium related to underlying infection with likely some component of cognitive deficit as she is on memantine. No gross focal deficits on exam though will check brain CT. Polypharmacy could be playing a factor as well as underlying infection. Chest x- ray and CT of the abdomen and pelvis showed left-sided pneumonia for which she has been started on azithromycin and ceftriaxone. Left-sided pneumonia could be causing referred pain into the left side of the abdomen as no acute intra- abdominal or pelvic process was identified. Chronic hyponatremia stable on review of previous labs. She is not having urinary symptoms but UA was positive for bacteria and 6 to 11 WBC per high-power field; urine cultures pending. Blood pressures were reviewed and they are stable. Her home medications will be reviewed and resumed as appropriate. 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 Subjective Date/time seen: 08/12/24 15:24 Interval history: Patient has fluctuance of HTN . Her Hydralazine has increased from 5 mg to 10mg TID. Patient reports her neuropathy is acting up. Patient has polypharmacy. Advised to take Tylenol Review of Systems Review of Systems: 12 systems were reviewed and are negativ e except for as per HPI however limited due to her confusion. Exam Narrative: General: Ill-appearing female in the semi-Siegel position in bed. Weight: 94.3 kg. BMI: 42.0. HEENT: PERRL, EOMI. Sclera anicteric. Dry mucous membranes. Neck: Supple. No midline vertebral tenderness. Respiratory: Respirations are nonlabored. She is currently on 4.5 L nasal cannula. Lung sounds are diminished at the left base with scattered rales. Cardiovascular: Tachycardic with normal S1-S2. Gastrointestinal: Abdomen is soft, nontender, nondistended with positive bowel sounds. Skin: Warm and dry. No rash or lesions on limited exam. Normal capillary refill. Extremities warm and perfused. Extremities: No cyanosis, clubbing, or right lower extremity edema. Status post left [id number] amputation. Neurological: Alert to name and place. She cannot provide me the current year, her date of , and is somewhat confused regarding situation. Cranial nerves 2-12 are grossly intact. Generally weak without gross focal deficits. Psychiatric: Confused and cooperative. Objective Data Vital Signs Vital Signs: Vital Signs - 24 hr 08/11/24 16:00 08/11/24 16:00 08/11/24 20:00 Temperature Pulse Rate 88 888 H 92 Respiratory Rate 14 Blood Pressure 169/67 H Pulse Oximetry 90 Oxygen Delivery Fraction of Inspired Oxygen 08/11/24 20:24 08/11/24 21:10 08/11/24 21:12 Temperature 98.3 F Pulse Rate 96 74 74 Respiratory Rate 16 14 Blood Pressure 185/73 H Pulse Oximetry 92 90 Oxygen Delivery Room Air Fraction of Inspired Oxygen 28 08/11/24 21:38 08/11/24 21:50 08/12/24 00:00 Temperature 98.3 F Pulse Rate 84 83 94 Respiratory Rate 20 20 16 Blood Pressure 152/61 H Pulse Oximetry 94 Oxygen Delivery Fraction of Inspired Oxygen 08/12/24 00:04 08/12/24 04:00 08/12/24 04:00 Temperature 99 F Pulse Rate 69 74 60 Respiratory Rate 18 Blood Pressure 180/66 H Pulse Oximetry 97 Oxygen Delivery Fraction of Inspired Oxygen 08/12/24 08:00 08/12/24 08:00 08/12/24 08:25 Temperature Pulse Rate 88 96 Respiratory Rate 14 Blood Pressure 184/66 H Pulse Oximetry 95 94 Oxygen Delivery Room Air Fraction of Inspired Oxygen 08/12/24 08:25 08/12/24 08:34 08/12/24 09:07 Temperature Pulse Rate 81 82 80 Respiratory Rate 20 20 Blood Pressure Pulse Oximetry Oxygen Delivery Fraction of Inspired Oxygen 08/12/24 09:15 08/12/24 12:00 08/12/24 12:00 Temperature Pulse Rate 70 70 Respiratory Rate 12 Blood Pressure 128/63 Pulse Oximetry 95 Oxygen Delivery Room Air Fraction of Inspired Oxygen 08/12/24 13:51 08/12/24 14:02 Temperature Pulse Rate 84 85 Respiratory Rate 20 20 Blood Pressure Pulse Oximetry Oxygen Delivery Fraction of Inspired Oxygen Intake/Output Intake/Output: Intake & Output 08/09/24 08/10/24 08/11/24 08/12/24 23:59 23:59 23:59 23:59 Intake Total 3262 360 3570 340 Output Total 2701 3900 2300 1500 Balance 561 -3540 1270 -1160 Meds/Results Medications: Active Medications Generic Name Dose Route Start Last Admin Trade Name Freq PRN Reason Stop Dose Admin Acetaminophen 650 mg 08/06/24 10:57 08/10/24 03:25 Acetaminophen 325 Mg Tablet PO 650 mg Q4H PRN Administration Mild Pain (1-3) or Fever Hydrocodone Bitart/Acetaminophen 1 tab 08/06/24 10:57 08/12/24 09:17 Hydrocodone/Acetaminophen (*Crx) 5-325 Mg Tablet PO 1 tab Q4H PRN Administration Pain Rated 4-6 Amlodipine Besylate 10 mg 08/07/24 09:00 08/12/24 09:08 Amlodipine Besylate 10 Mg Tablet PO 10 mg DAILY [facility] Administration Artificial Tears 1 drop 08/07/24 16:43 08/12/24 14:06 Artificial Tears Ophth Soln 15 Ml Bottle EACH EYE 1 drop QID PRN Administration Dry Eye(s) Bisacodyl 10 mg 08/06/24 23:10 Bisacodyl 5 Mg Tablet Ec PO HS PRN Constipation Diclofenac Sodium 1 applic 08/06/24 23:10 Diclofenac Sodium 1% 100 Gm Gel (*Bkc) TOPICAL BID PRN moderate pain (scale score 5-6) Famciclovir 250 mg 08/07/24 09:00 08/12/24 09:07 Famciclovir 250 Mg Tablet PO 250 mg Q12HR [facility]ELIN Administration Fluticasone Propionate 2 spray 08/07/24 09:00 08/12/24 09:09 Fluticasone Propionate 0.05% Na Spr 16 Gm Btl (*Bkc) NASAL Not Given DAILY KELIN Furosemide 10 mg 08/07/24 09:00 08/12/24 09:08 Furosemide 10 Mg Tablet PO 10 mg BID [facility]IN Administration Guaifenesin 1,200 mg 08/07/24 09:00 08/12/24 09:07 Guaifenesin 12 Hr 600 Mg Tabcr PO 1,200 mg Q12HR [facility] Administration Hydralazine HCl 10 mg 08/11/24 14:10 08/12/24 14:06 Hydralazine 10 Mg Tablet PO 10 mg QID [facility]ELIN Administration Ipratropium [employer] 0.5 mg 08/08/24 14:00 08/12/24 13:51 Ipratropium Br 0.02% Inh Soln 0.5 Mg/2.5 Ml Vial INHALATION 0.5 mg Q6HRT [facility]ELIN Administration Isosorbide Mononitrate 30 mg 08/07/24 09:00 08/12/24 09:07 Isosorbide Mononitrate 30 Mg Tab.Er.24h PO 30 mg DAILY [facility] Administration Levalbuterol HCl 1.25 mg 08/08/24 14:00 08/12/24 13:51 Levalbuterol Neb 1.25 Mg/3 Ml INHALATION 1.25 mg Q6HRT [facility]IN Administration Levofloxacin 750 mg 08/10/24 09:00 08/12/24 09:08 Levofloxacin 750 Mg Tablet PO 08/14/24 09:01 750 mg DAILY [facility] Administration Lidocaine 2 patch 08/07/24 21:00 08/11/24 21:14 Lidocaine 5% Patch TOPICAL 2 patch HS [facility]ELIN Administration Lorazepam 0.5 mg 08/11/24 14:03 08/12/24 09:07 Lorazepam (*Crx) 0.5 Mg Tablet PO 0.5 mg Q6H PRN Administration Anxiety Losartan Potassium 100 mg 08/07/24 09:00 08/12/24 09:08 Losartan Potassium 100 Mg Tablet PO 100 mg DAILY [facility]ELIN Administration Memantine 5 mg 08/07/24 09:00 08/12/24 09:07 Memantine 5 Mg Tablet PO 5 mg Q12HR [facility]IN Administration Metoprolol Tartrate 100 mg 08/06/24 23:15 08/12/24 09:07 Metoprolol Tartrate 50 Mg Tab PO 100 mg Q12HR [facility]IN Administration Miconazole Nitrate 1 applic 08/06/24 23:24 Miconazole Nitrate 2% Cream 30 Gm Tube TOPICAL BID PRN irritation Ondansetron HCl 4 mg 08/08/24 14:00 08/12/24 14:06 Ondansetron Hcl Odt 4 Mg Tablet PO 4 mg Q8HR [facility]ELIN Administration Pantoprazole Sodium 40 mg 08/07/24 09:00 08/12/24 09:08 Pantoprazole 40 Mg Tablet PO 40 mg DAILY [facility] Administration Pregabalin 150 mg 08/08/24 21:00 08/12/24 09:08 Pregabalin (*Crx) 75 Mg Capsule PO 150 mg Q12HR [facility]ELIN Administration Primidone 200 mg 08/08/24 21:00 08/12/24 09:08 Primidone 50 Mg Tablet PO 200 mg Q12HR [facility] Administration Rivaroxaban 20 mg 08/08/24 17:00 08/11/24 17:19 Rivaroxaban 20 Mg Tablet PO 20 mg DAILY@1700 [facility] Administration Fluticasone/Salmeterol 2 puff 08/07/24 08:00 08/12/24 08:24 Fluticasone/Salmeterol 115-21 Mcg Inhaler 1 Puff INHALATION 2 puff Q12HRT [facility]IN Administration Sodium Chloride 2 spray 08/06/24 23:10 Saline 0.65% Gordo Soln 44 Ml Btl NASAL PRN PRN Congestion Sodium Chloride 1 gm 08/07/24 09:00 08/12/24 09:07 Sodium Chloride 1 Gm Tablet PO 1 gm BID KELIN Administration Spironolactone 25 mg 08/07/24 09:00 08/12/24 09:07 Spironolactone 25 Mg Tablet PO 25 mg DAILY [facility] Administration Vitamin B Complex/Folic Acid 1 cap 08/07/24 09:00 08/12/24 09:08 Vitamin B Cmplx/Vit C/Folic Ac 1 Capsule PO 1 cap QAM [facility] Administration Vitamin D 5,000 units 08/07/24 09:00 08/12/24 09:08 Cholecalciferol 5,000 Units Tablet PO 5,000 units DAILY [facility] Administration Vitamin E 800 unit 08/07/24 09:00 08/12/24 09:08 Vitamin E 400 Unit Capsule PO 800 unit DAILY [facility] Administration Radiology Results: ITS Impressions Chest X-Ray 08/06/24 09:01 IMPRESSION: Patchy infiltrate of left mid and lower lung, primarily involving left lower lobe, likely due to pneumonia Abdomen/Pelvis CT 08/06/24 09:03 IMPRESSION: Prominent patchy consolidation of left lower lobe consistent with pneumonia Mild dependent right lower lobe infiltrate or atelectasis Borderline heart size Pinpoint nonobstructing lower pole left renal calculus Status post hysterectomy Head CT 08/06/24 21:50 Impression: No acute intracranial hemorrhage or suspicious mass effect. Ventricular dilatation and bifrontal atrophy, far advanced for patient of this age but unchanged dating back to 04/23/2024. Labs Labs: Laboratory Results - last 24 hr 08/12/24 04:55 WBC 11.7 H RBC 4.22 Hgb 12.8 Hct 37.7 MCV 89.3 MCH 30.3 MCHC 34.0 RDW 12.4 Plt Count 343 MPV 9.9 Sodium 127 L Potassium 3.7 Chloride 90 L Carbon Dioxide 30 Anion Gap 7 BUN 6 L Creatinine 0.58 L Estim Creat Clear Calc Not Reportable Estimated GFR > 60 Glucose 97 Calcium 8.8 Total Bilirubin 0.3 AST 36 ALT 49 H Alkaline Phosphatase 106 Total Protein 7.0 Albumin 3.4 L Quality VTE Prophylaxis VTE prophylaxis: pharmacologic ordered Hospitalist [facility] Advance Care Plan I have confirmed that the patient's Advanced Care Plan is present, code status is documented, or surrogate decision maker is listed in patient medical record.: Yes Medication Reconciliation I have utilized all available resources to obtain, update and review the patients current medications (includes all prescriptions, OTC, herbals, cannabis, and nutritional supplements).: Yes
[2024-08-12] MEDS: RIVAROXABAN 20 MG TABLET PO (17:52)
[2024-08-12] MEDS: LIDOCAINE 5% PATCH 2 PATCH TOPICAL (21:03)
[2024-08-13] VITALS (15 sets, daily range): BP systolic 106–169; BP diastolic 50–80; PULSE 71–96; RESP 16–20; TEMP 36.2–36.9; O2SAT 94–99
[2024-08-13] MEDS: LORazepam (*CRX) 0.5 MG TABLET PO ×4 (03:58→21:42)
[2024-08-13] MEDS: HYDROcodone/acetaminophen (*CRX) 5-325 MG TABLET 1 TAB PO ×4 (03:58→21:43)
--- OUTSIDE RECORDS SUMMARY | 2024-08-13 04:57 | XMS_ITS | Encounter Summary ---
Author Organization [facility] Address [address] [place] [address]. [place], [place] [id number] [place] [id number] Care Team Providers Care Platform Man Name Role Phone Marcia Gaines MD Primary Care Provider [phone]- [phone] Encounter Details Date Type Department Care Team (Latest Contact Info) Description 02/28/2021 Scan HEALTH INFO [facility] Scanned, Documents Social History Tobacco Use Types Packs/Day Years Used Date Smoking Tobacco: Never Assessed Comments Unknown Sex and Gender Information Value Date Recorded Sex Assigned at Not on file Legal Sex Female 6:21 PM CDT Gender Identity Not on file Sexual Orientation Not on file documented as of this encounter Plan of Treatment Not on file documented as of this encounter Visit Diagnoses Not on filedocumented in this encounter Care Teams Platform Man Relationship Specialty Start Date End Date Marcia Gaines MD PCP - General 08/18/16 documented as of this encounter
--- OUTSIDE RECORDS SUMMARY | 2024-08-13 04:57 | XMS_ITS | Encounter Summary ---
Author Organization [facility] Address [address] [place] [address]. [place], [place] [address] [place] [address] Care Team Providers Care Surveillance Supervisor Name Role Phone Marcia Gaines MD Primary Care Provider +1- [phone] Encounter Details Date Type Department Care Team (Latest Contact Info) Description 05/26/2021 Scan HEALTH INFO SRVCS Scanned, Documents Social [...] Diagnoses Not on filedocumented in this encounter Additional Health Concerns Infection Onset Date Last Indicated Resolved Time ESBL - Extended Spectrum Beta-lactamase 05/09/2021 1 documented as of this encounter Care Teams Surveillance Supervisor Relationship Specialty Start Date End Date Marcia Gaines MD PCP - General 08/18/16 documented as of this encounter
--- OUTSIDE RECORDS SUMMARY | 2024-08-13 04:57 | XMS_ITS | Encounter Summary ---
Author Organization [facility] Address [address] [place] [address]. [place], [place] [address] [place] [address] Care Team Providers Care Imaging System Administrator Name Role Phone Marcia Gaines MD Primary Care Provider +1- [phone] Encounter Details Date Type Department Care Team (Latest Contact Info) Description 04/15/2021 Scan HEALTH INFO SRVCS Scanned, Documents Social [...] on filedocumented in this encounter Care Teams Imaging System Administrator Relationship Specialty Start Date End Date Marcia Gaines MD PCP - General 08/18/16 documented as of this encounter
--- OUTSIDE RECORDS SUMMARY | 2024-08-13 04:57 | XMS_ITS | Encounter Summary ---
Author Organization [facility] Address [address] [place] [address]. [place], [place] [address] [place] [address] Care Team Providers Care Care Transition Coordinator Name Role Phone Marcia Gaines MD Primary Care Provider +1- [phone] Encounter Details Date Type Department Care Team (Latest Contact Info) Description 03/06/2021 Scan HEALTH INFO SRVCS Scanned, Documents Social [...] on filedocumented in this encounter Care Teams Care Transition Coordinator Relationship Specialty Start Date End Date Marcia Gaines MD PCP - General 08/18/16 documented as of this encounter
--- OUTSIDE RECORDS SUMMARY | 2024-08-13 04:57 | XMS_ITS | Encounter Summary ---
Author Organization [facility] Address [address] [place] [address]. [place], [place] [address] [place] [address] Care Team Providers Care Sheep Sticker Name Role Phone Marcia Gaines MD Primary Care Provider +1- [phone] Encounter Details Date Type Department Care Team (Latest Contact Info) Description 05/05/2021 Scan HEALTH INFO SRVCS Scanned, Documents Social [...] documented as of this encounter Care Teams Sheep Sticker Relationship Specialty Start Date End Date Marcia Gaines MD PCP - General 08/18/16 documented as of this encounter
--- OUTSIDE RECORDS SUMMARY | 2024-08-13 04:57 | XMS_ITS | Encounter Summary ---
Author Organization [facility] Address [address] [place] [address]. [place] [address] [place] [address] Care Team Providers Care Full Stack Net Developer Name Role Phone Marcia Gaines MD Primary Care Provider +1- [phone] Encounter Details Date Type Department Care Team (Late st Contact Info) Description 05/07/2021 Orders Only [facility] [address] [place], [place] [id number] [place] [address] [place], [place] [id number] Social History Tobacco Use Types Packs/Day Years Used Date Smoking Tobacco: Never Assessed Comments Unknown Sex and Gender Information Value Date Recorded Sex Assigned at Not on file Legal Sex Female 6:21 PM CDT Gender Identity Not on file Sexual Orientation Not on file documented as of this encounter Plan of Treatment Not on file documented as of this encounter Results * (ABNORMAL) CULTURE URINE (05/07/2021 12:00 PM CDT) SPEC DESCRIPTION URINE CLEAN CATCH 05/07/2021 1:14 PM CDT [facility] SPECIAL REQUESTS NO SPECIAL REQUEST 05/07/2021 1:14 PM CDT [facility] CULTURE RESULT 10,000-49,000 COL/ML ESCHERICHIA COLI PROBABLE EXTENDED SPECTRUM BETA LACTAMASE SENIOR BRANCH MANAGER (A) 05/09/2021 8:[address] [facility] URINE SPECIMEN OBTAINED BY CLEAN CATCH PROCEDURE / Unknown 05/07/2021 12:00 PM CDT 05/07/2021 1:14 PM CDT Narrative Organism Antibiotic Method Susceptibility Escherichia coli AMPICILLIN MAME (VITEK) >=32: Resistant Escherichia coli AMIKACIN MAME (VITEK) <=2: Sensitive Escherichia coli AMPICILLIN/SULBACTAM MAME (VITEK) >=32: Resistant Escherichia coli CEFTRIAXONE MAME (VITEK) >=64: Resistant Escherichia coli CEFTAZIDIME MAME (VITEK) 4: Resistant Escherichia coli CEFAZOLIN MAME (VITEK) >=64: Resistant Escherichia coli ESBL MAME (VITEK) POS: Resistant Escherichia coli NITROFURANTOIN MAME (VITEK) <=16: Sensitive Escherichia coli GENTAMICIN MAME (VITEK) >=16: Resistant Escherichia coli LEVOFLOXACIN MAME (VITEK) >=8: Resistant Escherichia coli MEROPENEM MAME (VITEK) <=0.25: Sensitive Escherichia coli PIPRACIL/TAZO MAME (VITEK) <=4: Sensitive Escherichia coli TRIMETH-SULFAMETH. MAME (VITEK) <=20: Sensitive Escherichia coli TOBRAMYCIN MAME (VITEK) 8: Intermediate Comment:INTERMEDIATE Escherichia coli CEFEPIME MAME (VITEK) Resistant Feng Thompson MD MICROBIOLOGY - GENERAL ORDE [facility] Final Result Performing Organization Address [facility]/State/[facility] Co de Phone Number [facility] [address] [place] [address], [place] [phone] [facility] [address] [place] [address], [place] [phone] * (ABNORMAL) URINALYSIS, AUTO, COMPLETE (05/07/2021 12:00 PM CDT) COLOR (U) YELLOW 05/07/2021 1:27 PM CDT [facility] TRANSPARENCY HAZY 05/07/2021 1:27 PM CDT [facility] SPECIFIC GRAVITY (U) <1.005 1.000 - 1.030 05/07/2021 1:27 PM CDT [facility] U PH 6.0 5.0 - 9.0 05/07/2021 1:27 PM CDT [facility] LEUKOCYTES (U) TRACE(A) NEGATIVE 05/07/2021 1:27 PM CDT [facility] NITRITES NEGATIVE NEGATIVE 05/07/2021 1:27 PM CDT [facility] PROTEIN (U) NEGATIVE NEGATIVE 05/07/2021 1:27 PM CDT [facility] URINE GLUCOSE NEGATIVE NEGATIVE 05/07/2021 1:27 PM T [facility] KETONES MG/DL (U) NEGATIVE NEGATIVE 05/07/2021 1:27 PM CDT [facility] BILIRUBIN (U) NEGATIVE NEGATIVE 05/07/2021 1:27 PM CDT [facility] BLOOD (U) NEGATIVE NEGATIVE 05/07/2021 1:27 PM CDT [facility] WBC/HPF 0-5 0 - 5 /HPF 05/07/2021 1:27 PM T [facility] RBC/HPF NONE SEEN 0 - 5 /HPF 05/07/2021 1:27 PM T [facility] EPI/HPF FEW /HPF 05/07/2021 1:27 PM T [facility] CULTURE & SENSITIVITY INDICATED? SPECIMEN SETUP FOR CULTURE 05/07/2021 1:27 PM T [facility] URINE SPECIMEN OBTAINED BY CLEAN CATCH PROCEDURE / Unknown 05/07/2021 12:00 PM CDT us Feng Thompson MD URINE ORDERABLES Final Resu lt [facility] [address] [place] [address], [place] [phone] documented in this encounter Visit Diagnoses Diagnosis Dysuria- Primary documented in this encounter Additional Health Concerns Infection Onset Date Last Indicated Resolved Time ESBL - Extended Spectrum Beta-lactamase 05/09/2021 1 documented as of this encounter Care Teams Full Stack Net Developer Relationship Specialty Start Date End Date Marcia Gaines MD PCP - General 08/18/16 documented as of this encounter
--- OUTSIDE RECORDS SUMMARY | 2024-08-13 04:57 | XMS_ITS | Encounter Summary ---
Author Organization [facility] Address [address] [place] [address]. [place] [address] [place] [address] Care Team Providers Care It Infrastructure Manager Name Role Phone Marcia Gaines MD Primary Care Provider +1- [phone] Encounter Details Date Type Department Care Team (Latest Contact Info) Description 10/03/2019 8:32 PM CDT - 10/03/2019 11:59 PM CDT Hospital Encounter [facility] [place] [address] Bernardo Edwards MD [address] [place] [address] Discharge Disposition: Home or Self Care (Routine Discharge) Social History Tobacco Use Types Packs/Day Years Used Date Smoking Tobacco: Never Assessed Comments Unknown Sex and Gender Information Value Date Recorded Sex Assigned at Not on file Legal Sex Female 6:21 PM CDT Gender Identity Not on file Sexual Orientation Not on file documented as of this encounter Plan of Treatment Not on file documented as of this encounter Procedures Procedure Name Priority Date/Time Associated Diagnosis Comments VANCOMYCIN TROUGH Routine 10/03/2019 7:4 5 PM CDT [facility]eps[facility] ([facility]) documented in this encounter Results * (ABNORMAL) VANCOMYCIN TROUGH (10/03/2019 7:45 PM CDT) VANCOMYCIN TROUGH 21.3(H) 10.0 - 20.0 MCG/ML 10/03/2019 8:57 PM CDT [facility] Comment: ? THERAPEUTIC: 10.0-20.0 ? TOXIC: >25.0 VANCOMYCIN UNKNOWN LAST DOSE 10/03/2019 9:29 PM CDT [facility] 10/03/2019 7:45 PM CDT us Provider Non-Staff LABORATORY Final Result [facility] [address] [place], [place] [address] [place] [phone] documented in this encounter Visit Diagnoses Diagnosis Sepsis ([facility]) documented in this encounter Care Teams It Infrastructure Manager Relationship Specialty Start Date End Date Marcia Gaines MD PCP - General 08/18/16 documented as of this encounter
--- OUTSIDE RECORDS SUMMARY | 2024-08-13 04:57 | XMS_ITS | Encounter Summary ---
Author Organization [facility] Address [address] [place] [address]. [place], [place] [address] [place] [address] Care Team Providers Care Production Drilling Machine Operator Name Role Phone Marcia Gaines MD Primary Care Provider +1- [phone] Encounter Details Date Type Department Care Team (Latest Contact Info) Description 06/01/2021 Scan HEALTH INFO SRVCS Scanned, Documents Social [...] documented as of this encounter Care Teams Production Drilling Machine Operator Relationship Specialty Start Date End Date Marcia Gaines MD PCP - General 08/18/16 documented as of this encounter
--- OUTSIDE RECORDS SUMMARY | 2024-08-13 04:57 | XMS_ITS | Encounter Summary ---
Author Organization [facility] Address [address] [place] [address]. [place] [address] [place] [address] Care Team Providers Care Plumbing Service Technician Name Role Phone Marcia Gaines MD Primary Care Provider +1- [phone] Reason for Visit * Reason Comments [facility] Follow up-Routine Encounter Details Date Type Department Care Team (Late st Contact Info) Description 05/06/2021 2:20 PM CDT [facility] [address] [address] [place] Thompson [place] [id number] [place] [address] [facility] (Follow up-Routine) Social History Tobacco Use Types Packs/Day Years Used Date Smoking Tobacco: Never Assessed Comments Unknown Sex and Gender Information Value Date Recorded Sex Assigned at Not on file Legal Sex Female 6:21 PM CDT Gender Identity Not on file Sexual Orientation Not on file documented as of this encounter Last Filed Vital Signs Vital Sign Reading Time Taken Comments Blood Pressure 148/72 05/06/2021 11:50 AM CDT Pulse 82 05/06/2021 11:50 AM CDT Temperature 36.6 ??C (97.8 ??F) 05/06/2021 11:50 AM C DT Respiratory Rate 20 05/06/2021 11:50 AM CDT Oxygen Saturation 98% 05/06/2021 11:50 AM CDT Inhaled Oxygen Concentration - - Weight 87 kg (191 lb 12.8 oz) 05/06/2021 11:50 A M CDT Height - - Body Mass Index - - documented in this encounter Patient Instructions * Patient Instructions* Joe Thompson MD - 05/06/2021 2:20 PM CDT I have reviewed her chart and there are no new issues and will continue all current active orders and no change to medications at this time documented in this encounter Progress Notes * Joe Thmopson MD - 05/06/2021 2:20 PM CDT Images from the original note were not included. Office Progress Note Reason for Visit: [facility] (Follow up-Routine) History of Present Illness: HPI Pt with a pmh of paroxymal a-fib,hypertension, hyperlipidemia, peripheral vascular disease, chronicrespiratory failure status post left leg cellulitis requiring Left BKA presents for routine follow up and is continuing rehab and denies fever, discharge, sob, chest pain, and declines a prosthesis would rather have a wheel chair, there are no new issues ROS: Review of Systems Constitutional: Negative for fever, malaise/fatigue and weight loss. HENT: Negative for hearing loss and tinnitus. Eyes: Negative for blurred vision and double vision. Respiratory: Negative for cough and shortness of breath. Cardiovascular: Negative for chest pain and palpitations. Gastrointestinal: Negative for abdominal pain, constipation, diarrhea, heartburn and nausea. Genitourinary: Negative for hematuria and urgency. Musculoskeletal: Positive for myalgias. Negative for joint pain. Skin: Negative for rash. Neurological: Positive for focal weakness. Negative for dizziness and headaches. Endo/Heme/Allergies: Bruises/bleeds easily. Psychiatric/Behavioral: Negative for depression. The patient is not nervous/anxious and does not have insomnia. Medications: Current Outpatient Medications: ??? albuterol sulfate HFA 108 (90 Base) MCG/ACT inhaler, , Disp: , Rfl: ??? amLODIPine 5 MG tablet, , Disp: , Rfl: ??? atorvastatin 10 MG tablet, , Disp: , Rfl: ??? baclofen 10 MG tablet, , Disp: , Rfl: ??? COMBIVENT RESPIMAT 20-100 MCG/ACT inhaler, , Disp: , Rfl: ??? Docusate Sodium (DSS) 100 MG Cap, Take 100 mg by mouth daily., Disp: , Rfl: ??? enoxaparin 40 MG/0.4ML Solution, , Disp: , Rfl: ??? famciclovir 250 MG tablet, , Disp: , Rfl: ??? ferrous sulfate, 65 mg elemental, 325 (65 FE) MG tablet, Take 325 mg by mouth daily with breakfast., Disp: , Rfl: ??? FLOVENT HFA 110 MCG/ACT inhaler, , Disp: , Rfl: ??? fluconazole 150 MG tablet, , Disp: , Rfl: ??? fluticasone propionate 50 MCG/ACT nasal spray, , Disp: , Rfl: ??? furosemide 40 MG tablet, , Disp: , Rfl: ??? ipratropium-albuterol 0.5-2.5 (3) MG/3ML Solution, , Disp: , Rfl: ??? lidocaine 5 %, , Disp: , Rfl: ??? LORazepam 1 MG tablet, , Disp: , Rfl: ??? losartan 100 MG tablet, , Disp: , Rfl: ??? melatonin 5 MG tablet, Take 5 mg by mouth nightly as needed., Disp: , Rfl: ??? metoprolol tartrate 25 MG tablet, , Disp: , Rfl: ??? NYSTATIN 017554 UNIT/GM powder, , Disp: , Rfl: ??? ondansetron 8 MG disintegrating tablet, Take 8 mg by mouth., Disp: , Rfl: ??? oxyCODONE-acetaminophen 5-325 MG tablet, , Disp: , Rfl: ??? pantoprazole EC 40 MG tablet, , Disp: , Rfl: ??? pregabalin 150 MG capsule, Take 1 capsule (150 mg total) by mouth 2 (two) times daily., Disp: 14 capsule, Rfl: 0 ??? primidone 50 MG tablet, , Disp: , Rfl: ??? Senna 8.6 MG tablet, Take 1 tablet by mouth daily., Disp: , Rfl: ??? Spacer/Aero-Holding Chambers (AEROCHAMBER PLUS DIDIER-VU) [facility], , Disp: , Rfl: ??? spironolactone 25 MG tablet, , Disp: , Rfl: ??? vitamin C 500 MG tablet, Take 1 tablet by mouth 2 (two) times daily., Disp: , Rfl: ??? vitamin D3, cholecalciferol, (VITAMIN D-3) 10 MCG (400 UNIT) tablet, Take 400 Units by mouth daily., Disp: , Rfl: ??? vitamin D3, cholecalciferol, 1000 UNIT Tab tablet, Take 1,250 tablets by mouth every 7 days. Take on , Disp: , Rfl: ??? vitamin E 400 UNIT capsule, Take 800 Units by mouth daily., Disp: , Rfl: ??? zolpidem 10 MG tablet, Take 1 tablet (10 mg total) by mouth nightly as needed for Sleep., Disp:7 tablet, Rfl: 0 Allergies: Allergies Allergen Reactions ??? Fish-Derived Products Anaphylaxis ??? Diazepam Unknown ??? Fish Oil Unknown ??? Iodine Unknown ??? Latex Unknown ??? Sulfa Antibiotics Unknown Medical History: No past medical history on file. Surgical History: No past surgical history on file. Social History: Social History Tobacco Use ??? Smoking status: Not on file Substance Use Topics ??? Alcohol use: Not on file ??? Drug use: Not on file Family History: No family history on file. PE: Physical Exam Constitutional: She is oriented to person, place, and time. She appears well- developed and well-nourished. HENT: Head: Normocephalic. Mouth/Throat: Oropharynx is clear and moist. Eyes: Pupils are equal, round, and reactive to light. Conjunctivae and EOM are normal. No scleral icterus. Neck: No JVD present. No thyromegaly present. Cardiovascular: Normal rate, regular rhythm and intact distal pulses. Pulmonary/Chest: Effort normal. 2 liters oxygen by nasal canula Musculoskeletal: Cervical back: Neck supple. Comments: Left BKA Neurological: She is alert and oriented to person, place, and time. Skin: Skin is warm. No pallor. Psychiatric: She has a normal mood and affect. Her behavior is normal. Nursing note and vitals reviewed. Filed Vitals: 05/06/21 1150 BP: 148/72 Pulse: 82 Resp: 20 Temp: 97.8 ??F (36.6 ??C) SpO2: 98% Weight: 87 kg (191 lb 12.8 oz) There is no height or weight on file to calculate BMI. Diagnoses/Impression: 1. Chronic respiratory failure with hypercapnia (CMS/HCC) 2. Moderate essential hypertension 3. Gastroesophageal reflux disease with stricture 4. Bipolar I disorder with anxious distress ([facility]) 5. Acute exacerbation of chronic low back pain 6. Dyslipidemia, goal LDL below 100 Recommendations and Plan: Patient Instructions I have reviewed her chart and there are no new issues and will continue all current active orders and no change to medications at this time PCP: JOE THOMPSON MD 05/10/2021 documented in this encounter Plan of Treatment Not on file documented as of this encounter Visit Diagnoses Diagnosis Chronic respiratory failure with hypercapnia ([facility])- Primary Chronic respiratory failure Moderate essential hypertension Unspecified essential hypertension Gastroesophageal reflux disease with stricture Esophageal reflux Bipolar I disorder with anxious distress ([facility]) Acute exacerbation of chronic low back pain Lumbago Dyslipidemia, goal LDL below 100 Other and unspecified hyperlipidemia documented in this encounter Additional Health Concerns Infection Onset Date Last Indicated Resolved Time ESBL - Extended Spectrum Beta-lactamase 05/09/2021 1 documented as of this encounter Care Teams Plumbing Service Technician Relationship Specialty Start Date End Date Marcia Gaines MD PCP - General 08/18/16 documented as of this encounter
--- OUTSIDE RECORDS SUMMARY | 2024-08-13 04:57 | XMS_ITS | Encounter Summary ---
Author Organization [facility] Address [address] [place] [address]. [place], [place] [address] [place] [address] Care Team Providers Care Freight Unloader Name Role Phone Marcia Gaines MD Primary Care Provider +1- [phone] Encounter Details Date Type Department Care Team (Latest Contact Info) Description 03/03/2021 Scan HEALTH INFO SRVCS Scanned, Documents Social [...] on filedocumented in this encounter Care Teams Freight Unloader Relationship Specialty Start Date End Date Marcia Gaines MD PCP - General 08/18/16 documented as of this encounter
--- OUTSIDE RECORDS SUMMARY | 2024-08-13 04:57 | XMS_ITS | Encounter Summary ---
Author Organization [facility] Address [address] [place] [address]. [place] [address] [place] [address] Care Team Providers Care Municipal Engineer Name Role Phone Marcia Gaines MD Primary Care Provider +1- [phone] Encounter Details Date Type Department Care Team (Latest Contact Info) Description 05/07/2021 1:11 PM CDT - 05/07/2021 11:59 PM CDT Hospital Encounter [facility] [address] [place], [place] [id number] [place] [address] [place] [address] Discharge Disposition: Home or Self Care (Routine Discharge) Social History Tobacco Use Types Packs/Day Years Used Date Smoking Tobacco: Never Assessed Comments Unknown Sex and Gender Information Value Date Recorded Sex Assigned at Not on file Legal Sex Female 6:21 PM CDT Gender Identity Not on file Sexual Orientation Not on file documented as of this encounter Medications at Time of Discharge albuterol sulfate HFA 108 (90 Base) MCG/ACT inhaler 01/03/2021 amLODIPine 5 MG tablet 04/24/2021 atorvastatin 10 MG tablet 05/05/2021 baclofen 10 MG tablet 04/24/2021 COMBIVENT RESPIMAT 20-100 MCG/ACT inhaler 01/30/2021 Docusate Sodium (DSS) 100 MG Cap Take 100 mg by mouth daily. enoxaparin 40 MG/0.4ML Solution 09/15/2020 famciclovir 250 MG tablet 04/29/2021 ferrous sulfate, 65 mg elemental, 325 (65 FE) MG tablet Take 325 mg by mouth daily with breakfast. FLOVENT HFA 110 MCG/ACT inhaler 03/27/2021 fluconazole 150 MG tablet 01/20/2021 fluticasone propionate 50 MCG/ACT nasal spray 04/22/2021 furosemide 40 MG tablet 05/01/2021 ipratropium-albutero l 0.5-2.5 (3) MG/3ML Solution 05/04/2021 lidocaine 5 % 06/16/2020 LORazepam 1 MG tablet 04/17/2021 losartan 100 MG tablet 04/24/2021 melatonin 5 MG tablet Take 5 mg by mouth nightly as needed. metoprolol tartrate 25 MG tablet 04/23/2021 NYSTATIN 732318 UNIT/GM powder 04/23/2021 ondansetron 8 MG disintegrating tablet Take 8 mg by mouth. 07/12/2020 oxyCODONE-acetaminop hen 5-325 MG tablet 07/29/2020 pantoprazole EC 40 MG tablet 04/29/2021 pregabalin 150 MG capsuleIndications:N europathy Take 1 capsule (150 mg total) by mouth 2 (two) times daily. 14 capsule 02/28/2021 primidone 50 MG tablet 04/22/2021 Senna 8.6 MG tablet Take 1 tablet by mouth daily. Spacer/Aero-Holding Chambers (AEROCHAMBER PLUS DIDIER-VU) Misc 03/03/2021 spironolactone 25 MG tablet 04/29/2021 vitamin C 500 MG tablet Take 1 tablet by mouth 2 (two) times daily. vitamin D3, cholecalciferol, (VITAMIN D-3) 10 MCG (400 UNIT) tablet Take 400 Units by mouth daily. vitamin D3, cholecalciferol, 1000 UNIT Tab tablet Take 1,250 tablets by mouth every 7 days. Take on vitamin E 400 UNIT capsule Take 800 Units by mouth daily. zolpidem 10 MG tabletIndications:In somnia Take 1 tablet (10 mg total) by mouth nightly as needed for Sleep. 7 tablet 02/28/2021 documented as of this encounter Progress Notes * Feng Thompson MD - 05/07/2021 1:11 PM CDT Not a uti may stop antibiotics * Corine Hunt RN - 05/07/2021 1:11 PM [address] Pt at [facility]. Results faxed there. documented in this encounter Plan of Treatment Not on file documented as of this encounter Procedures Procedure Name Priority Date/Time Associated Diagnosis Comments URINE BACTERIA CULTURE Routine 05/07/2021 12:00 PM CDT Dysuria URINALYSIS, AUTO, COMPLETE Routine 05/07/2021 12:00 PM CDT Dysuria documented in this encounter Results * (ABNORMAL) URINALYSIS, AUTO, COMPLETE (05/07/2021 12:00 PM CDT) COLOR (U) YELLOW 05/07/2021 1:27 PM CDT [facility] TRANSPARENCY HAZY 05/07/2021 1:27 PM CDT [facility] SPECIFIC GRAVITY (U) <1.005 1.000 - 1.030 05/07/2021 1:27 PM CDT [facility] U PH 6.0 5.0 - 9.0 05/07/2021 1:27 PM CDT [facility] LEUKOCYTES (U) TRACE(A) NEGATIVE 05/07/2021 1:27 PM CDT [facility] NITRITES NEGATIVE NEGATIVE 05/07/2021 1:27 PM CDT [facility] PROTEIN (U) NEGATIVE NEGATIVE 05/07/2021 1:27 PM CDT [facility] URINE GLUCOSE NEGATIVE NEGATIVE 05/07/2021 1:27 PM CDT [facility] KETONES MG/DL (U) NEGATIVE NEGATIVE 05/07/2021 1:27 PM CDT [facility] BILIRUBIN (U) NEGATIVE NEGATIVE 05/07/2021 1:27 PM CDT [facility] BLOOD (U) NEGATIVE NEGATIVE 05/07/2021 1:27 PM CDT [facility] WBC/HPF 0-5 0 - 5 /HPF 05/07/2021 1:27 PM CDT [facility] RBC/HPF NONE SEEN 0 - 5 /HPF 05/07/2021 1:27 PM CDT [facility] EPI/HPF FEW /HPF 05/07/2021 1:27 PM CDT [facility] CULTURE & SENSITIVITY INDICATED? SPECIMEN SETUP FOR CULTURE 05/07/2021 1:27 PM CDT [facility] URINE SPECIMEN OBTAINED BY CLEAN CATCH PROCEDURE / Unknown 05/07/2021 12:00 PM CDT us Feng Thompson MD URINE ORDERABLES Final Resu lt [facility] [address] [place] [address], [place] [phone] * (ABNORMAL) CULTURE URINE (05/07/2021 12:00 PM CDT) SPEC DESCRIPTION URINE CLEAN CATCH 05/07/2021 1:14 PM CDT [facility] SPECIAL REQUESTS NO SPECIAL REQUEST 05/07/2021 1:14 PM CDT [facility] CULTURE RESULT 10,000-49,000 COL/ML ESCHERICHIA COLI PROBABLE EXTENDED SPECTRUM BETA LACTAMASE CENTRAL SUPPLY WORKER (A) 05/09/2021 8:35 AM CDT [facility] URINE SPECIMEN OBTAINED BY CLEAN CATCH [...] Comment:INTERMEDIATE Escherichia coli CEFEPIME MAME (VITEK) Resistant us Feng Thompson MD MICROBIOLOGY - GENERAL JENNIFER ACEVEDO Final Result Performing Organization Address City/State/[facility] de Phone Number [facility] [address] [place] [address], [place] [phone] [facility] [address] [place] [address], [place] [phone] documented in this encounter Visit Diagnoses Diagnosis Dysuria documented in this encounter Care Teams Municipal Engineer Relationship Specialty Start Date End Date Marcia Gaines MD PCP - General 08/18/16 documented as of this encounter
--- OUTSIDE RECORDS SUMMARY | 2024-08-13 04:57 | XMS_ITS | Clinical Summary ---
Author Organization [facility] Address [address] [place] [address]. [place] [address] [place] [address] Care Team Providers Care Energy Conservation Technician Name Role Phone Marcia Gaines MD Primary Care Provider +1- [phone] Allergies Active Allergy Reactions Criticality Noted Date Comments Diazepam Unknown 06/28/2019 Fish Oil Unknown 06/07/2019 Fish-Derived Products Anaphylaxis High 07/05/2019 Iodine Unknown 06/28/2019 Latex Unknown 06/28/2019 Sulfa Antibiotics Unknown 06/28/2019 Medications pregabalin 150 MG capsuleIndications :Neuropathy Take 1 capsule (150 mg total) by mouth 2 (two) times daily. 14 capsule 1 Active zolpidem 10 MG tabletIndications: Insomnia Take 1 tablet (10 mg total) by mouth nightly as needed for Sleep. 7 tablet 1 Active albuterol sulfate HFA 108 (90 Base) MCG/ACT inhaler 1 Active amLODIPine 5 MG tablet 1 Active atorvastatin 10 MG tablet 1 Active baclofen 10 MG tablet 1 Active Docusate Sodium (DSS) 100 MG Cap Take 100 mg by mouth daily. Active famciclovir 250 MG tablet 1 Active fluconazole 150 MG tablet 1 Active enoxaparin 40 MG/0.4ML Solution 1 Active fluticasone propionate 50 MCG/ACT nasal spray 1 Active FLOVENT HFA 110 MCG/ACT inhaler 1 Active furosemide 40 MG tablet 1 Active ipratropium-albute rol 0.5-2.5 (3) MG/3ML Solution 1 Active COMBIVENT RESPIMAT 20-100 MCG/ACT inhaler 1 Active lidocaine 5 % 0 Active LORazepam 1 MG tablet 1 Active losartan 100 MG tablet 1 Active metoprolol tartrate 25 MG tablet 1 Active NYSTATIN [id number] UNIT/GM powder 1 Active ondansetron 8 MG disintegrating tablet Take 8 mg by mouth. 0 Active oxyCODONE-acetamin ophen 5-325 MG tablet 1 Active pantoprazole EC 40 MG tablet 1 Active primidone 50 MG tablet 1 Active spironolactone 25 MG tablet 1 Active vitamin E 400 UNIT capsule Take 800 Units by mouth daily. Active Spacer/Aero-Holdin g Chambers (AEROCHAMBER PLUS DIDIER-VU) Misc 1 Active Senna 8.6 MG tablet Take 1 tablet by mouth daily. Active vitamin C 500 MG tablet Take 1 tablet by mouth 2 (two) times daily. Active vitamin D3, cholecalciferol, 1000 UNIT Tab tablet Take 1,250 tablets by mouth every 7 days. Take on Active vitamin D3, cholecalciferol, (VITAMIN D-3) 10 MCG (400 UNIT) tablet Take 400 Units by mouth daily. Active ferrous sulfate, 65 mg elemental, 325 (65 FE) MG tablet Take 325 mg by mouth daily with breakfast. Active melatonin 5 MG tablet Take 5 mg by mouth nightly as needed. 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 Patient of Dr. Shoemaker in Orthopedics. Presented with concern for osteomyelitis / hardware infection. L Tib/fibula CT showed mildly displaced, angulated and nonunited fractures with findings concerning for infection. - On 07/06, underwent removal of hardware and irrigation and debridement of her tibial and fibular shaft hardware (07/06). - On 07/08, underwent LEFT above the knee amputation with orthopedics. - 07/06 OR tissue cultures growing E coli and Proteus. - 07/06 blood cultures 1 of 2 sets positive for staph epidermidis. Repeat cultures 07/08 NGTD. - 07/08 OR bone culture and surgical pathology pending. - Continue empiric vancomycin and cefepime. - Monitor vancomycin levels. Recheck next trough prior to evening dose. - Need for long-term antibiotics and antibiotic plan pending culture and surgical pathology results. - Pain management. - NWB left lower extremity. - PM&R consulted. - Centrifugal Spinner placed stump new account interviewer / ampushield. Awaiting delivery of limb protector. - Patient not interested in prosthesis at this time. - PT/OT consults. - Plan for patient to return to her prior SNF when medically stable with ongoing PT/OT. - ID and Ortho following. COVID-19 07/05/2020 Overview (05/06/2021): Last Assessment & Plan: - Patient tested positive for COVID-19 on 06/21/20 at her detention ([facility] in [place], [place]). - She reports her only symptom was a cough. - She has remained on her baseline O2 requirement for the duration of this hospitalization and has not had sequelae attributable to COVID-19 this hospitalization. - Admission chest xray showed clear lungs / no evidence of viral pneumonia. - Continues on 2-4L of supplemental O2. Baseline is 4L O2. - Has not received any COVID-19 specific therapies to date. - As patient is more than 20 days from positive test with resolution of symptoms, she is considered COVID-19 recovered. COVID-19 Isolation precautions will be removed as soon as we can obtain hard copy records of her positive test from her SNF. 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 Recurrent falls while walking 07/20/2019 Menopause present 07/20/2019 Irritable bowel syndrome with constipation and d iarrhea 07/20/2019 Insomnia 07/20/2019 History of hyperemesis gravidarum 07/20/2019 Herpes simplex of female genitalia 07/20/2019 Gastroesophageal reflux disease with stricture 1 09/20/2018 Dyslipidemia, goal LDL below 100 07/20/2019 Deep venous insufficiency 07/20/2019 Closed displaced bimalleolar fracture of right l ower leg 07/20/2019 Overview (05/06/2021): Last Assessment & Plan: - As elsewhere Chronic respiratory failure ([facility]) Overview (05/06/2021): Last Assessment & Plan: - Per pt 2/2 COPD. No sings of acute exacerbation. - Continue home flonase - Continue home albuterol prn - On home is on 4L O2 at baseline Chronic lumbosacral pain 07/20/2019 Biliary colic 07/20/2019 Acute exacerbation of chronic low back pain 06/26 Abnormal x-ray of extremity 07/20/2019 Syncope due to sick sinus syndrome ([facility]) 06/28/2019 Open displaced comminuted fr acture of shaft of left tibia, type IIIA, IIIB, or IIIC 06/28/2019 Overview (05/06/2021): Added automatically from request for surgery [id number] Last Assessment & Plan: - See above. Moderate essential hypertension 06/28/2019 Overview (05/06/2021): Last Assessment & Plan: - Follows with cardiology. - Continue home amlodipine, metoprolol, lasix, spironolactone. - Switched olmesartan to losartan as not on formulary. Intractable seizure disorder ([facility]) 1 08/29/2018 Bipolar I disorder with anxious distress (CMS/HC [facility]) 06/28/2019 Traumatic rhabdomyolysis 11/23/2017 Hyponatremia 11/23/2017 Overview (05/06/2021): Last Assessment & Plan: - Pt with history of hypoNa (per report, baseline mid 120- low 130s). - Na 126 on admission. No AMS. - TSH wnl. Cortisol 17. - Na stable. Resolved Problems Problem Noted Date Diagnosed Date Resolved Date Well child examination 07/20/201905/12 Full code status 07/20/2019 05/12/2021 Social History Tobacco Use Types Packs/Day Years Used Date Smoking Tobacco: Never Assessed Comments Unknown Sex and Gender Information Value Date Recorded Sex Assigned at Not on file Legal Sex Female 6:21 PM CDT Gender Identity Not on file Sexual Orientation Not on file Last Filed Vital Signs Vital Sign Reading [...] - - Body Mass Index - - Plan of Treatment Health Maintenance Due Date Last Done Comments Colorectal Cancer Screening Colonoscopy (10 Years) 1952 Hepatitis C 1970 Mammogram Screening 1992 Annual Medicare Wellness Visit 2017 Dexa Scan (General) 2017 COVID-19 Vaccine ( season) 2024 08/15/2020, 07/24/2020 Influenza Adult (#1) 2024 05/16/2019, 05/04/2018, 04/26/2017, Additional history exists RSV Immunization or 60+ Years (1 - 1-dose 75+ series) 12/02/2027 DTaP, Tdap and Td Vaccines (2 - Td or Tdap) 06/28/2029 06/28/2019 Pneumococcal Vaccine: 65+ Years Completed 07/25/2018, 05/04/2018, 04/04/2015 Zoster Vaccines Completed 01/25/2019, 10/26, 11/15/2018 Meningococcal Vaccine Aged Out No trent carlotta eligible based on patient's age to complete this topic RSV Immunizations Under 20 Months Aged Out No longer eligible based on patient's age to complete this topic Additional Health Concerns Infection Onset Date Last Indicated ESBL - Extended Spectrum Beta-lactamase 05/09/20 21 05/09/2021 Insurance MEDICAID AET Care Teams Energy Conservation Technician Relationship Specialty Start Date End Date Marcia Gaines MD PCP - General 08/18/16
--- OUTSIDE RECORDS SUMMARY | 2024-08-13 04:57 | XMS_ITS | Encounter Summary ---
Author Organization [facility] Address [address] [place] [address]. [place] [address] [place] [address] Care Team Providers Care Corporate Strategy Intern Name Role Phone Marcia Gaines MD Primary Care Provider +1- [phone] Encounter Details Date Type Department Care Team (Late st Contact Info) Description 10/03/2019 Orders Only [facility] [place] [address] Non-Staff, Provider Social History Tobacco Use Types Packs/Day Years Used Date Smoking Tobacco: Never Assessed Comments Unknown Sex and Gender Information Value Date Recorded Sex Assigned at Not on file Legal Sex Female 6:21 PM CDT Gender Identity Not on file Sexual Orientation Not on file documented as of this encounter Plan of Treatment Not on file documented as of this encounter Results * (ABNORMAL) VANCOMYCIN TROUGH (10/03/2019 7:45 PM CDT) VANCOMYCIN TROUGH 21.3(H) 10.0 - 20.0 MCG/ML 10/03/2019 8:57 PM CDT [facility] Comment: ? THERAPEUTIC: 10.0-20.0 ? TOXIC: >25.0 VANCOMYCIN UNKNOWN LAST DOSE 10/03/2019 9:29 PM CDT [facility] 10/03/2019 7:45 PM CDT us Provider Non-Staff LABORATORY Final Result [facility] [address] [place] [address], documented in this encounter Visit Diagnoses Diagnosis Sepsis (CMS/HCC HHS/HCC)- Primary documented in this encounter Care Teams Corporate Strategy Intern Relationship Specialty Start Date End Date Marcia Gaines MD PCP - General 08/18/16 documented as of this encounter
--- OUTSIDE RECORDS SUMMARY | 2024-08-13 04:57 | XMS_ITS | Encounter Summary ---
Author Organization [facility] Address [address] [place] [address]. [place] [address] [place] [address] Care Team Providers Care Print Designer Name Role Phone Marcia Gaines MD Primary Care Provider +1- [phone] Encounter Details Date Type Department Care Team (Late st Contact Info) Description 08/18/2016 Abstract [facility] [address] Anderson Martinez MD [address] [place] [address] Social History Tobacco Use Types Packs/Day Years Used Date Smoking Tobacco: Never Assessed Comments Unknown Sex and Gender Information Value Date Recorded Sex Assigned at Not on file Legal Sex Female 6:21 PM CDT Gender Identity Not on file Sexual Orientation Not on file documented as of this encounter Plan of Treatment Not on file documented as of this encounter Visit Diagnoses Diagnosis Generalized idiopathic epilepsy and epileptic syndromes, without status epilepticus, not intractable ([facility]) Unspecified epilepsy without mention of intractable epilepsy documented in this encounter Care Teams Print Designer Relationship Specialty Start Date End Date Marcia Gaines MD PCP - General 08/18/16 documented as of this encounter
--- OUTSIDE RECORDS SUMMARY | 2024-08-13 04:57 | XMS_ITS | Encounter Summary ---
Author Organization [facility] Address [address] [place] [address]. [place], [place] [address] [place] [address] Care Team Providers Care Custom Motorcycle Painter Name Role Phone Marcia Gaines MD Primary Care Provider +1- [phone] Encounter Details Date Type Department Care Team (Latest Contact Info) Description 04/06/2021 Scan HEALTH INFO SRVCS Scanned, Documents Social [...] on filedocumented in this encounter Care Teams Custom Motorcycle Painter Relationship Specialty Start Date End Date Marcia Gaines MD PCP - General 08/18/16 documented as of this encounter
--- OUTSIDE RECORDS SUMMARY | 2024-08-13 04:57 | XMS_ITS | Encounter Summary ---
Author Organization [facility] Address [address] [place] [address]. [place], [place] [address] [place] [address] Care Team Providers Care Health Promoter Name Role Phone Marcia Gaines MD Primary Care Provider +1- [phone] Encounter Details Date Type Department Care Team (Latest Contact Info) Description 03/21/2021 Scan HEALTH INFO SRVCS Scanned, Documents Social [...] on filedocumented in this encounter Care Teams Health Promoter Relationship Specialty Start Date End Date Marcia Gaines MD PCP - General 08/18/16 documented as of this encounter
--- OUTSIDE RECORDS SUMMARY | 2024-08-13 04:57 | XMS_ITS | Encounter Summary ---
Author Organization [facility] Address [address] [place] [address]. [place], [place] [address] [place] [address] Care Team Providers Care Documentation Designer Name Role Phone Marcia Gaines MD Primary Care Provider +1- [phone] Encounter Details Date Type Department Care Team (Latest Contact Info) Description 04/17/2021 Scan HEALTH INFO SRVCS Scanned, Documents Social [...] on filedocumented in this encounter Care Teams Documentation Designer Relationship Specialty Start Date End Date Marcia Gaines MD PCP - General 08/18/16 documented as of this encounter
--- OUTSIDE RECORDS SUMMARY | 2024-08-13 04:57 | XMS_ITS | Encounter Summary ---
Author Organization [facility] Address [address] [place] [address]. [place], [place] [address] [place] [address] Care Team Providers Care Pneumatic Tube Fitter Name Role Phone Marcia Gaines MD Primary Care Provider +1- [phone] Encounter Details Date Type Department Care Team (Latest Contact Info) Description 05/07/2021 Scan HEALTH INFO SRVCS Scanned, Documents Social [...] documented as of this encounter Care Teams Pneumatic Tube Fitter Relationship Specialty Start Date End Date Marcia Gaines MD PCP - General 08/18/16 documented as of this encounter
--- OUTSIDE RECORDS SUMMARY | 2024-08-13 04:57 | XMS_ITS | Encounter Summary ---
Author Organization [facility] Address [address] [place] [address]. [place] [address] [place] [address] Care Team Providers Care Bowling Ball Molder Name Role Phone Marcia Gaines MD Primary Care Provider [phone]- [phone] Encounter Details Date Type Department Care Team (Late st Contact Info) Description 03/04/2021 1:20 PM CDT [facility] Family & Internal Medicine [address] [address] Joe Thompson MD [address] [place], [place] [id number] Social History Tobacco Use Types Packs/Day Years Used Date Smoking Tobacco: Never Assessed Comments Unknown Sex and Gender Information Value Date Recorded Sex Assigned at Not on file Legal Sex Female 6:21 PM CDT Gender Identity Not on file Sexual Orientation Not on file documented as of this encounter Patient Instructions * Patient Instructions* Joe Thompson MD - 03/04/2021 1:20 PM CDT Will admit her to the floor with all current active orders and follow physical therapy recommendations documented in this encounter Progress Notes * Joe Thompson MD - 03/04/2021 1:20 PM CDT Images from the original note were not included. Office Progress Note Reason for Visit: No chief complaint on file. History of Present Illness: HPI Pt with a pmh of paroxymal a-fib,hypertension, hyperlipidemia, peripheral vascular disease, chronicrespiratory failure status post left leg cellulitis requiring Left BKA presents to [facility] for admission and rehab and denies fever, discharge, sob, chest pain, and declines a prosthesis would rather have a wheel chair ROS: Review of Systems Constitutional: Negative for [...] have insomnia. Medications: Current Outpatient Medications: ??? pregabalin 150 MG capsule, Take 1 capsule (150 mg total) by mouth 2 (two) times daily., Disp: 14 capsule, Rfl: 0 ??? zolpidem 10 MG tablet, Take 1 tablet (10 mg total) by mouth nightly as needed for Sleep., Disp:7 tablet, Rfl: 0 Allergies: Not on File Medical History: No past medical history on [...] is normal. Nursing note and vitals reviewed. There were no vitals filed for this visit. There is no height or weight on file to calculate BMI. Diagnoses/Impression: 1. Hx of BKA, left (CMS/HCC) 2. Primary hypertension 3. Pure hypercholesterolemia 4. Paroxysmal atrial fibrillation (CMS/HCC) 5. Peripheral vascular disease (CMS/HCC) 6. Chronic respiratory failure, unspecified whether with hypoxia or hypercapnia (CMS/HCC) Recommendations and Plan: Patient Instructions Will admit her to the floor with all current active orders and follow physical therapy recommendations PCP: JOE THOMPSON MD 03/10/2021 documented in this encounter Plan of Treatment Not on file documented as of this encounter Visit Diagnoses Diagnosis Hx of BKA, left (CMS/HCC HHS/HCC)- Primary Primary hypertension Unspecified essential hypertension Pure hypercholesterolemia Paroxysmal atrial fibrillation (CMS/HCC HHS/HCC) Atrial fibrillation Peripheral vascular disease (CMS/HCC) Peripheral vascular disease, unspecified Chronic respiratory failure, unspecified whether with hypoxia or hypercapnia (CMS/HCC HHS/HCC) documented in this encounter Care Teams Bowling Ball Molder Relationship Specialty Start Date End Date Marcia Gaines MD PCP - General 08/18/16 documented as of this encounter
--- OUTSIDE RECORDS SUMMARY | 2024-08-13 04:57 | XMS_ITS | Encounter Summary ---
Author Organization [facility] Address [address] [place] [address]. [place] [address] [place] [address] Care Team Providers Care Diamond Die Maker Name Role Phone Marcia Gaines MD Primary Care Provider [phone]- [phone] Encounter Details Date Type Department Care Team (Late st Contact Info) Description 08/25/2005 Abstract [facility] [address] [place] [address] Feng Weaver MD [address] [place] [id number] Social History Tobacco Use Types Packs/Day Years [...] on filedocumented in this encounter Care Teams Diamond Die Maker Relationship Specialty Start Date End Date Marcia Gaines MD PCP - General 08/18/16 documented as of this encounter
--- OUTSIDE RECORDS SUMMARY | 2024-08-13 04:57 | XMS_ITS | Encounter Summary ---
Author Organization [facility] Address [address] [place] [address]. [place] [address] [place] [address] Care Team Providers Care Carpet Measurer Name Role Phone Marcia Gaines MD Primary Care Provider +1- [phone] Reason for Visit * Reason Onset Date Comments Medication Request 02/28/2021 Encounter Details Date Type Department Care Team (Late st Contact Info) Description 02/28/2021 Telephone [facility] Medical [facility] Family & Internal Medicine [address] [address] Kathy Murillo NP Medication Request Social History Tobacco Use Types Packs/Day Years Used Date Smoking Tobacco: Never Assessed Comments Unknown Sex and Gender Information Value Date Recorded Sex Assigned at Not on file Legal Sex Female 6:21 PM CDT Gender Identity Not on file Sexual Orientation Not on file documented as of this encounter Progress Notes * Kathy Murillo NP - 02/28/2021 2:41 PM CDT Sent thank you much. * Corine Hunt RN - 02/28/2021 11:52 AM CDT Received fax from [facility] asking for script to be sent to [facility] for Lyrica 150mg bid and Ambien 10mg at . States pt is a new admit and scripts not sent with resident. Rx'spended and sent to [facility] to fill for [address] Thompson returns to office. documented in this encounter Plan of Treatment Not on file documented as of this encounter Visit Diagnoses Diagnosis Neuropathy- Primary Mononeuritis of unspecified site Insomnia Insomnia, unspecified documented in this encounter Care Teams Carpet Measurer Relationship Specialty Start Date End Date Marcia Gaines MD PCP - General 08/18/16 documented as of this encounter
--- OUTSIDE RECORDS SUMMARY | 2024-08-13 04:58 | XMS_ITS | Clinical Summary ---
Author Organization [facility] Healthcare Address [address] [place] [address] Care Team Providers Care Supervisor [employer] Name Role Phone Jose Manuel Gruber MD Unavailable [phone] Hernando Velasquez MD Primary Care Provider [phone] Allergies Active Allergy Reactions Criticality Noted Date Comments Barbiturates Unknown,Other (See comments) Medium 09/13/2006 Diazepam Unknown,Other (See comments) Low 09/13/2006 Fish Containing Products Anaphylaxis High 07/05/2019 Iodine Unknown,Other (See comments) Low 09/13/2006 Latex Unknown 06/28/2019 Menthol Hives,Itching,Rash Medium 07/08/2022 [place]-3 Fatty Acids Unknown,Other (See comments) Low 12/12/2010 Other Unknown 06/28/2019 seafood Sulfa (Sulfonamide Antibiotics) Unknown,Other (See comments) Low 03/27/2008 Medications amLODIPine (NORVASC) 10 mg tabletIndications: hypertension Take 10 mg by mouth daily. Indications: high blood pressure Active cholecalciferol (VITAMIN D-3) 400 unit capsuleIndications :Vitamin D deficiency Take 400 Units by mouth daily. Indications: Vitamin D deficiency Active docusate sodium (COLACE) 100 mg capsuleIndications :constipation Take 100 mg by mouth daily. Indications: constipation Active famciclovir (FAMVIR) 250 mg tabletIndications: Other (complete free text reason below),herpes Take 250 mg by mouth 2 (two) times a day. Indications: Other (complete free text reason below), herpes Active fluticasone propionate (FLOVENT HFA) 110 mcg/actuation inhalerIndications :Maintenance Therapy for Asthma Inhale 2 puffs daily. Indications: Controller Medication for Asthma Active furosemide (LASIX) 40 mg tabletIndications: Edema Take 40 mg by mouth 2 (two) times a day. Indications: visible water retention Active olmesartan (BENICAR) 40 mg tabletIndications: hypertension Take 40 mg by mouth daily. Indications: high blood pressure Active vitamin E (AQUASOL E) 400 unit capsuleIndications :Vitamin E Deficiency Take 800 Units by mouth daily. Indications: deficiency of vitamin E Active pantoprazole DR (PROTONIX) 40 mg EC tabletIndications: Stress Ulcer Prophylaxis Take 40 mg by mouth daily. Indications: Stress Ulcer Prophylaxis Active fluticasone propionate (FLONASE) 50 mcg/actuation nasal spray Administer 2 sprays into each nostril daily 12/19/19 18 Active lidocaine (LIDODERM) 5 % Place 1 patch on the skin daily 06/14/20 19 Active atorvastatin (LIPITOR) 10 mg tablet Take 1 tablet (10 mg total) by mouth nightly 1 tablet 07/04/20 19 Active baclofen (LIORESAL) 5 mg tablet Take 0.5 tablets (2.5 mg total) by mouth 3 (three) times a day with meals 1 tablet 07/04/20 19 Active Additional Information Patient not taking.Reported on 07/08/2022 metoprolol (LOPRESSOR) 25 mg tablet Take 1 tablet (25 mg total) by mouth every 6 (six) hours 1 tablet 07/04/20 19 Active Additional Information Patient taking differently: 100 mgoral2 times daily, Reported on 07/08/2022 busPIRone (BUSPAR) 5 mg tablet 01/07/20 20 Active ipratropium-albute roL (DUO-NEB) 0.5-2.5 mg/3 mL nebulizer solution 12/20/19 20 Active Aerochamber Plus Flow-Vu spacer 12/01/19 20 Active ondansetron (ZOFRAN) 4 mg tablet 12/30/19 20 Active spironolactone (ALDACTONE) 25 mg tablet Take 1 tablet (25 mg total) by mouth daily 30 tablet 11 03/06/20 20 Active Nyamyc powder 03/01/20 20 Active enoxaparin (LOVENOX) 40 mg/0.4 mL syringe 03/29/20 20 Active LORazepam (ATIVAN) 0.5 mg tablet Take 0.5 mg by mouth every 8 (eight) hours as needed for anxiety 05/04/20 Active primidone (MYSOLINE) 50 mg tablet 05/05/20 20 Active ondansetron ODT (ZOFRAN-ODT) 8 mg disintegrating tablet Take 1 tablet (8 mg total) by mouth every 8 (eight) hours as needed for nausea or vomiting 20 tablet 07/12/20 20 Active ramelteon (ROZEREM) 8 mg tabletIndications: Sleep-Onset Insomnia Take 1 tablet (8 mg total) by mouth nightly 30 tablet 11 07/12/20 20 Active losartan (COZAAR) 100 mg tablet 07/28/19 21 Active oxyCODONE-acetamin ophen (PERCOCET) 5-325 mg per tablet 07/29/19 21 Active ergocalciferol (VITAMIN D) 50,000 unit capsule TAKE 1 CAPSULE BY MOUTH EVERY WEEK ON Wednesday11/04/19 22 Active fluconazole (DIFLUCAN) 150 mg tablet 01/21/20 21 Active melatonin 5 mg tablet Take 5 mg by mouth nightly as needed Active predniSONE (DELTASONE) 20 mg tablet Take 40 mg by mouth daily 10/28/19 22 Active pregabalin (LYRICA) 150 mg capsule Take 150 mg by mouth 2 (two) times a day 12/02/19 22 Active baclofen (LIORESAL) 10 mg tablet Take 10 mg by mouth 3 (three) times a day 02/05/20 22 Active oxyCODONE (ROXICODONE) 5 mg immediate release tablet Take by mouth 06/27/20 22 Active ciprofloxacin (CIPRO) 500 mg tablet Take 500 mg by mouth every 12 (twelve) hours 06/23/20 22 Active albuterol HFA (PROVENTIL HFA,VENTOLIN HFA,PROAIR HFA) 90 mcg/actuation inhalerIndications :Mild intermittent asthma without complication INHALE 2 PUFFS BY MOUTH EVERY 6 HOURS NEEDED FOR WHEEZING 18 g 5 08/27/19 23 Active Active Problems Problem Noted Date Diagnosed Date Exercise hypoxemia 04/15/2022 Assessment & Plan (07/08/2022 2:39 PM FREIGHT BRAKEMAN): I did recommend that the patient decrease her oxygen to 1 liter/minute at rest during the day as long as saturations are 92% or above. I did tell her it was acceptable to increase the oxygen flow rate when she exerts herself Assessment & Plan (04/15/2022 3:11 PM CDT): The patient was asked to decrease her oxygen down to 2 L. She is going to monitor her oxygen saturation and as long as her oxygen level stays above 92% keep the oxygen at 2 L. Patient verbalized understanding. At the next visit if she continues with oxygen saturations above 92% the oxygen can be decreased again. Mild intermittent asthma 01/07/2022 Assessment & Plan (07/08/2022 2:39 PM FREIGHT BRAKEMAN): The patient does have some cough with deep inspiration. Overall, she is doing well with Flovent, Combivent and albuterol MDI. Assessment & Plan (01/07/2022 4:28 PM CDT): The patient carries a history of asthma. At this time, I will continue with the albuterol MDI on a p.r.n. basis and I have refilled this for her. She will also continue the Flovent and Combivent. I will check spirometry and a chest x-ray and she will follow-up with me in 1 month. She continues on oxygen at 4 liters/minute. I will order a room air ABG to be performed. SANTI (obstructive sleep apnea) 01/07/2022 Assessment & Plan (07/08/2022 2:39 PM FREIGHT BRAKEMAN): She was intolerant of CPAP therapy and is currently using oxygen at 4 liters/minute when she sleeps via nasal cannula Assessment & Plan (04/15/2022 3:10 PM CDT): The patient is intolerant of of CPAP. The patient has been using 4 L of oxygen at night. Assessment & Plan (01/07/2022 4:26 PM CDT): She is intolerant of CPAP. Altered mental status, unspecified 02/27/2021 Anxiety disorder, unspecified 02/27/2021 Dependence on supplemental oxygen 02/27/2021 Dysphagia, oropharyngeal phase 02/27/2021 Gastroparesis 02/27/2021 Major depressive disorder, recurrent, unspecifie d 02/27/2021 Hypo-osmolality and hyponatremia 02/27/2021 Other asthma 02/27/2021 Assessment & Plan (04/15/2022 3:06 PM CDT): The patient carries a history of asthma. At this time, I will continue with the albuterol MDI on a p.r.n. basis and I have refilled this for her. She will also continue the Flovent and Combivent. 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 - She reports her only symptom [...] of her positive test from her SNF. Assessment & Plan (07/07/2020 6:25 PM FREIGHT BRAKEMAN): - Pt states she was actually tested for COVID about 2 weeks ago. Only symptom was cough. - Now on 2L. Baseline home 4L O2 - Will defer treatment at this point as pt only mildly symptomatic and on baseline O2 - Telemetry and continuous SpO2 - Patient may be COVID recovered by now as she only had mild symptoms. I have attempted to obtain records from SNF but have not been able to get a hold of them. Patient will try to call them today. Follow up. - COVID isolation per hospital protocol Assessment & Plan (07/06/2020 11:59 AM FREIGHT BRAKEMAN): - recommend getting records from SNF to establish exact date of first (+) COVID test. - pt likely has completed days of isolation. Assessment & Plan (07/06/2020 7:34 AM FREIGHT BRAKEMAN): - Per report, pt was tested for COVID at SNF 2 days prior to admission (would be on 07/03). Per pt, residents get regularly tested for COVID and only symptom was cough. - On baseline home 4L O2 - Will defer treatment at this point as pt only mildly symptomatic and on baseline O2 - Telemetry and continuous SpO2 - COVID isolation per hospital protocol Assessment & Plan (07/05/2020 5:40 PM FREIGHT BRAKEMAN): - Per report, pt was tested for COVID at SNF 2 days prior to admission (would be on 07/03). States residents get regularly tested for COVID and only symptoms was cough. - On baseline home 4L O2 - Will defer treatment at this point as pt asymptomatic and on baseline O2 - Telemetry and continuous SpO2 - COVID isolation per hospital protocol Left lower extremity infection 07/05/2020 Assessment & Plan (07/11/2020 6:57 AM FREIGHT BRAKEMAN): History of open periprosthetic tibia/fibula fracture s/p [...] left lower extremity. - PM&R consulted. - Certified Surgical Assistant placed stump certified tower climber / ampushield. Awaiting delivery of limb protector. - Patient not interested in prosthesis at this time. - PT/OT consults. - Plan for patient to return to her prior SNF when medically stable with ongoing PT/OT. - ID and Ortho following. Assessment & Plan (07/07/2020 6:27 PM FREIGHT BRAKEMAN): - History of open periprosthetic tibia/fibula fracture s/p definitive fixation and right medial malleolus fracture s/p ORIF (06/2019) complicated by poor wound healing s/p multiple courses of antibiotics. Pt of Dr. Shoemaker. - Concern for osteomyelitis - L Tib/fibula CT showed mildly displaced, angulated and nonunited fractures with findings concerning for infection. - Underwent removal of hardware and irrigation and debridement of her tibial and fibular shaft hardware (07/06). - OR tissue culture growing GNB and GPC. Follow up. Bx staph epi. - ID following. On vancomycin and cefepime. Will most likely require 6 wk course of antibiotics. Appreciate recs. - Ortho following. They recommend amputation though not urgent. Pt does not want to pursue amputation at this point and would prefer to try antibiotic treatment first. - Pain management - PT/OT - Nonweightbearing left lower extremity Assessment & Plan (07/06/2020 3:07 PM FREIGHT BRAKEMAN): - Cellulitis vs subcutaneous infection vs OM - History of open periprosthetic tibia/fibula fracture s/p definitive fixation and right medial malleolus fracture s/p ORIF (06/2019) complicated by poor wound healing s/p multiple courses of antibiotics. Pt of Dr. Shoemaker. - Presented to OSH with worsening tenderness, erythema and discharge form wound. WBC 25. Per report, XR concerning for OM. Received vancomycin x 1 and transferred. - L Tib/fibula CT showed mildly displaced, angulated and nonunited fractures with findings concerning for infection. - Ortho following. Plan for OR today. Appreciate recommendations. - Pt is clinically stable. Will hold off on abx for OR cultures. - ID following. Plan to start vancomycin and cefepime after OR. Will most likely require 6 wk course of antibiotics. Appreciate recs. Assessment & Plan (07/05/2020 6:03 PM FREIGHT BRAKEMAN): - Cellulitis vs subcutaneous infection vs OM - History of open periprosthetic tibia/fibula fracture s/p definitive fixation and right medial malleolus fracture s/p ORIF (06/2019) complicated by poor wound healing s/p multiple courses of antibiotics. Pt of Dr. Shoemaker. - Presented to OSH with worsening tenderness, erythema and discharge form wound. WBC 25. Per report, XR concerning for OM. Received vancomycin x 1 and transferred. - Uploaded L tibia XR - Will evaluate XR and decide on need for further imaging - Pt is clinically stable. Will hold off on abx in case bone biopsy is needed. Low threshold to start antibiotics. - Consult ortho Leg skin lesion, left 07/05/2020 Overview (07/08/2020): Added automatically from request for surgery [id number] Abnormal x-ray of extremity 07/20/2019 Acute exacerbation of chronic low back pain 06/26 Biliary colic 07/20/2019 Chronic lumbosacral pain 07/20/2019 Chronic respiratory failure 07/20/2019 Assessment & Plan (07/08/2020 4:27 PM FREIGHT BRAKEMAN): - Per pt 2/2 COPD. No sings of acute exacerbation. - Continue home flonase - Continue home albuterol prn - On home is on 4L O2 at baseline Assessment & Plan (07/07/2020 6:26 PM FREIGHT BRAKEMAN): - Per pt 2/2 COPD. No sings of acute exacerbation. - Continue home flonase - Continue home albuterol prn - On baseline 4L O2 Assessment & Plan (07/06/2020 7:33 AM FREIGHT BRAKEMAN): - Per pt 2/2 COPD. No sings of acute exacerbation. - Continue home flonase - Continue home albuterol prn - On baseline 4L O2 Assessment & Plan (07/05/2020 6:00 PM FREIGHT BRAKEMAN): - Per pt 2/2 COPD. No sings of acute exacerbation. - Continue home flonase - Continue home albuterol prn - On baseline 4L O2 Closed displaced bimalleolar fracture of right l ower leg 07/20/2019 Assessment & Plan (07/05/2020 6:01 PM FREIGHT BRAKEMAN): - As elsewhere Deep venous insufficiency 07/20/2019 Dyslipidemia, goal LDL below 100 07/20/2019 Full code status 07/20/2019 Gastroesophageal reflux disease with stricture 1 09/20/2018 Herpes simplex of female genitalia 07/20/2019 History of hyperemesis gravidarum 07/20/2019 Insomnia 07/20/2019 Irritable bowel syndrome with constipation and d iarrhea 07/20/2019 Menopause present 07/20/2019 Recurrent falls while walking 07/20/2019 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 - Continue home amlodipine, metoprolol, lasix, spironolactone. - Switched olmesartan to losartan as not on formulary. Assessment & Plan (07/07/2020 6:26 PM FREIGHT BRAKEMAN): - Follows with cardiology - Continue home amlodipine, metoprolol, lasix, spironolactone - Switched olmesartan to losartan as not on formulary Assessment & Plan (07/06/2020 3:04 PM FREIGHT BRAKEMAN): - Follows with cardiology - Continue home amlodipine, metoprolol, lasix, spironolactone - Switched olmesartan to losartan as not on formulary Assessment & Plan (07/05/2020 5:58 PM FREIGHT BRAKEMAN): - Follows with cardiology - Continue home amlodipine, metoprolol, lasix, spironolactone - Switch olmesartan to losartan as not on formulary Syncope due to sick sinus syndrome (CMS/HCC) 10/2018 Open displaced comminuted fr acture of shaft of left tibia, type IIIA, IIIB, or IIIC 06/28/2019 Overview (06/28/2019): Added automatically from request for surgery [id number] Assessment & Plan (07/08/2020 4:27 PM FREIGHT BRAKEMAN): - See above. Assessment & Plan (07/12/2020 8:13 AM FREIGHT BRAKEMAN): 69 y.o. female w/PMH of porphyria (sulfa drugs contraindicated), HTN, GERD, bipolar and seizure disorder, sick sinus syndrome, COPD on 4L at baseline, recent COVID- 19 (+), and complex L-tibia fx s/p ORIF and R-ankle fx s/p ORIF (both on 06/30) c/b poor wound healing s/p multiple abx courses (cephalexin, clinda); now admitted for LLE HW infection and c/f OM (exam probes to bone) - baseline CrCL 42 ml/min, CRP 236, ESR 100. WBC 24k, PLT 420, LFTS ok. Albumin 3.4. - BCX (07/05) 1 of 2 bottles with S epi (contaminant) - CT tib/fib (07/06): periprosthetic fx of L-prox tib&fib, mildly displaced, angulated and nonunited, w/overlying periosteal reaction c/f infection. - s/p I&D on 07/06, cx + ecoli and proteus, susceptibility pending. -pt went to the OR 07/08 for LLE BKA. New cx of bone obtained and NGTD . Per culture notes, obtained from residual femur - her vt was 7.9 on 1250 q 24 hour dosing, increased by medicine team to 1750 q 24. Scr is stable. No acute events since last seen. Her bone cx obtained 07/08 remain NGTD. We discussed with micro and ortho- no growth and per ortho adequate debridement to a level that appeared to be proximal to the infection. Recommendations - okay to dc cefepime and start augmentin 875mg po bid x 14 days (firm stop). Close follow up with the surgery team, no formal ID follow up needed at this time, but please reach out to the bone and joint ID team with any infectious concerns going forward. ID signing off. - leukocytosis markedly improved today, she is asymptomatic - Thank-you for the opportunity to participate in the care of this patient. Infectious Diseases will continue to follow with you. Please contact the ID B&J Team PA at [phone] (desk) or [phone] (work cell) M-F, 7-3; or the Attending at [phone] (pager) with any questions or concerns. After hours, the ID fellow store operations manager can be reached at [phone]. Assessment & Plan (07/05/2020 5:59 PM FREIGHT BRAKEMAN): - L tibia and R ankle fractures s/p BRENNA in 06/2020 - Complicated by poor healing and multiple infections of L anterior leg wound - Pt of Dr. Shoemaker Hyponatremia 11/23/2017 Assessment & Plan (07/11/2020 6:59 AM FREIGHT BRAKEMAN): - Pt with history of hypoNa (per report, baseline mid 120- low 130s). - Na 126 on admission. No AMS. - TSH wnl. Cortisol 17. - Na stable. Assessment & Plan (07/07/2020 6:26 PM FREIGHT BRAKEMAN): - Pt with history of hypoNa (per report, baseline mid 120- low 130s). - Na 126 on admission. No AMS. - TSH wnl. Cortisol 17. - Diuretics were held and Na improved to 132. Restart when able. Assessment & Plan (07/06/2020 7:31 AM FREIGHT BRAKEMAN): - Pt with history of hypoNa (per report, baseline mid 120- low 130s). - Na 126 on admission. No AMS. - TSH wnl. Cortisol 17. - NS IVF - CTM Na Traumatic rhabdomyolysis (CMS/[facility]) 11/23/2017 Syndrome of inappropriate antidiuretic hormone 1 08/03/2014 Idiopathic peripheral neuropathy 12/11/2010 Migraine 09/14/2006 Generalized osteoarthritis 09/27/2000 Resolved Problems Problem Noted Date Diagnosed Date Resolved Date Acute kidney injury 07/20/2019 07/05/20 20 Hyperkalemia 07/20/2019 07/05/2020 Immunizations Name Administration Dates Next Due Influenza, Quadrivalent, Rec ombinant, Egg Free, Preservative Free, Intramuscular 05/16/2019,05/04/2018 Influenza, Quadrivalent, Spl it, Preservative Free, Intramuscular 04/26/2017,04/04/2015,04/27/2014 Influenza, Split 05/01/2013 Pneumococcal Conjugate PCV 13 07/25/2018, 015 Pneumococcal Polysaccharide PPV23 05/04/2018 Tdap 06/28/2019 ZOSTER Recombinant 01/25/2019,11/22/2018, 019 Surgical History Surgery Date Site/Laterality Comments NASAL SEPTUM SURGERY 07/26/1972 - 07/25/1973 APPENDECTOMY 07/26/1972 - 07/25/1973 DILATION AND CURETTAGE OF UTERUS 10/24/1986 - 11/22/1986 REPLACEMENT TOTAL KNEE Left multiple left knee surgeries, including 3 knee replacements ACHILLES TENDON LENGTHENING 09/24/1991 - 10/24/1991 Left TOE FUSION 08/26/1994 - 09/22/1994 Left HYSTERECTOMY 05/26/1995 - 06/24/1995 BILATERAL SALPINGOOPHORECTOMY 12/24/1998 - 01/22/1999 BREAST BIOPSY 2000 and 2006 Right SHOULDER SURGERY 08/26/2009 - 09/22/2009 Right ANKLE SURGERY 07/26/2015 - 07/25/2016 Left ORIF TIBIA FRACTURE 06/28/2019 Left LEG AMPUTATION 06/25/2021 - 07/25/2021 Left Medical History Medical History Date Comments Hypertension Hyperlipidemia Heart murmur Asthma COPD (chronic obstructive pulmonary disease) (HC C) Shortness of breath Sleep apnea Family History Medical History Relation Name Comments Diabetes Brother Diabetes Father Emphysema Father Diabetes Mother Heart disease Mother Relation Name Status Comments Brother Father Mother Social History Tobacco Use Types Packs/Day Years Used Date Smoking Tobacco: Never Smokeless Tobacco: Never Tobacco Cessation:Counseling Given: Not Answered Comments:Patient does not smoke Alcohol Use Standard Drinks/Week Comments Not Currently 0 (1 standard drink = 0.6 oz pur e alcohol) Hunger Vital Sign Answer Date Recorded Worried About Running Out of Food in the Last Ye ar Never true 06/29/2019 Ran Out of Food in the Last Year Never true 06/29/2019 PRAPARE - Transportation Answer Date Re corded Lack of Transportation (Medical) Yes 06/29/2019 Lack of Transportation (Non-Medical) Yes 06/29/2019 Comments No Sex and Gender Information Value Date Recorded Sex Assigned at Not on file Legal Sex Female 10:28 AM CDT Gender Identity Female 01/30/2020 10:55 AM CDT Sexual Orientation Not on file Obstetrics History Para Term AB IAB SAB Ectopic Multiple Livin g Live Births 1 1 1 Date Outcome GA Total Labor Labor/2nd/3rd Weight Sex Type Anes PTL Mayela A1 A5 Name Clin Term Last Filed Vital Signs Vital Sign Reading Time Taken Comments Blood Pressure 153/76 07/08/2022 2:24 PM FREIGHT BRAKEMAN Pulse 71 07/08/2022 2:24 PM FREIGHT BRAKEMAN Temperature 36.5 ??C (97.7 ??F) 01/16/2022 5:20 PM CD T Respiratory Rate 18 07/08/2022 2:24 PM FREIGHT BRAKEMAN Oxygen Saturation 96% 07/08/2022 2:24 PM FREIGHT BRAKEMAN Inhaled Oxygen Concentration - - Weight 89.4 kg (197 lb) 01/16/2022 5:20 PM CDT Height 157.5 cm (5' 2 ) 04/15/2022 2:28 PM CDT Body Mass Index 36.03 01/07/2022 12:59 PM CDT Plan of Treatment Health Maintenance Due Date Last Done Comments Colon Cancer Screening-Colonoscopy 1950 Depression Screening 1950 Osteoporosis Screening-Bone Density Scan 1950 Hepatitis B Screening 1970 Well Visit 65+ 2017 Fall Risk Assessment 07/12/2021 07/12/2020 Breast Cancer Screening-Mammogram 02/19/2024 023 Covid-19 Vaccine (2023-08 5 season) 2024 07/29/2021, 05/29/2021, 08/14/2020, Additional history exists Influenza Vaccine (#1) 2024 2, 05/16/2019, 05/04/2018, Additional history exists DTaP/Tdap/Td Vaccine (2 - Td or Tdap) 06/28/2029 06/28/2019 Pneumococcal vaccine 65+ Completed 018, 05/04/2018, 04/04/2015 Zoster Vaccine Completed 01/25/2019, 10/26, 11/15/2018 Hepatitis C Screening Completed 06/10/2019 Medical Devices Implanted Type Area Child Welfare Manager Device Identifier Shelf Expiration Date Model / Serial / Lot Synthes 223.581 Lcp Combi [id number] 8 Hole Limit Contact Taper End Plate Bone - S0 - [id number] Implanted:Qty: 1 on 06/28/2019 by Lo Laura DO at [facility] Plate Left: Tibia Synthes I 223.581 / 0 / 0 Synthes 212.106 3.5mm 2.9mm 20mm Self Tap Lock Stardrive Conical Head T15 Full - S0 - [id number] Implanted:Qty: 1 on 06/28/2019 by Lo Laura DO at [facility] Screw Left: Tibia Synthes I 212.106 / 0 / 0 Synthes 212.108 3.5mm 2.9mm 24mm Self Tap Lock Stardrive Conical Head Pelvis T15 - S0 - [id number] Implanted:Qty: 1 on 06/28/2019 by Lo Laura DO at [facility] Screw Left: Tibia Synthes I 212.108 / 0 / 0 Synthes 212.109 3.5mm 2.9mm 26mm Self Tap Lock Stardrive Conical Head T15 Full - S0 - [id number] Implanted:Qty: 1 on 06/28/2019 by Lo Laura DO at [facility] Screw Left: Tibia Synthes I 212.109 / 0 / 0 Synthes 212.104 3.5mm 2.9mm 16mm Self Tap Lock Stardrive Conical Head T15 Full - S0 - [id number] Implanted:Qty: 2 on 06/28/2019 by Lo Laura DO at [facility] Screw Left: Tibia Synthes I 212.104 / 0 / 0 Synthes 212.107 3.5mm 2.9mm 22mm Self Tap Lock Stardrive Conical Head T15 Full - S0 - [id number] Implanted:Qty: 1 on 06/28/2019 by Lo Laura DO at [facility] Screw Left: Tibia Synthes I 212.107 / 0 / 0 Synthes 212.103 3.5mm 2.9mm 14mm Self Tap Lock Stardrive Conical Head T15 Full - [id number] Implanted:Qty: 2 on 06/30/2019 by Jacobo Shoemaker MD at [facility] Left: Tibia Synthes I 212.103 / / Synthes 212.109 3.5mm 2.9mm 26mm Self Tap Lock Stardrive Conical Head T15 Full - [id number] Implanted:Qty: 2 on 06/30/2019 by Jacobo Shoemaker MD at [facility] Left: Tibia Synthes I 212.109 / / Synthes 212.101 3.5mm 2.9mm 10mm Self Tap Lock Stardrive Conical Head T15 Full - [id number] Implanted:Qty: 1 on 06/30/2019 by Jacobo Shoemaker MD at [facility] Left: Tibia Synthes I 212.101 / / Synthes 212.107 3.5mm 2.9mm 22mm Self Tap Lock Stardrive Conical Head T15 Full - [id number] Implanted:Qty: 1 on 06/30/2019 by Jacobo Shoemaker MD at [facility] Left: Tibia Synthes I 212.107 / / Synthes 204.840 3.5mm 6mm 40mm 2.5mm Self Tap Small Hexagonal Socket Low Profile - [id number] Implanted:Qty: 1 on 06/30/2019 by Jacobo Shoemaker MD at [facility] Left: Tibia Synthes I 204.840 / / Synthes 204.832 3.5mm 6mm 32mm 2.5mm Self Tap Small Hexagonal Socket Low Profile - [id number] Implanted:Qty: 1 on 06/30/2019 by Jacobo Shoemaker MD at [facility] Left: Tibia Synthes I 204.832 / / Synthes 241.351 Lcp 12mm [id number] .7mm 5 Hole Collar 1/3 Tubular Plate Bone - [id number] Implanted:Qty: 1 on 06/30/2019 by Jacobo Shoemaker MD at [facility] Left: Tibia Synthes I 241.351 / / Synthes 241.351 Lcp 12mm [id number] .7mm 5 Hole Collar 1/3 Tubular Plate Bone - [id number] Implanted:Qty: 1 on 06/30/2019 by Jacobo Shoemaker MD at [facility] Right: Ankle Synthes I 241.351 / / Synthes 204.826 3.5mm 6mm 26mm 2.5mm Self Tap Small Hexagonal Socket Low Profile - [id number] Implanted:Qty: 1 on 06/30/2019 by Jacobo Shoemaker MD at [facility] Right: Ankle Synthes I 204.826 / / Synthes 212.102 3.5mm 2.9mm 12mm Self Tap Lock Stardrive Conical Head T15 Full - [id number] Implanted:Qty: 1 on 06/30/2019 by Jacobo Shoemaker MD at [facility] Right: Ankle Synthes I 212.102 / / Synthes 212.114 3.5mm 2.9mm 35mm Self Tap Lock Stardrive Conical Head T15 Full - [id number] Implanted:Qty: 1 on 06/30/2019 by Jacobo Shoemaker MD at [facility] Right: Ankle Synthes I 212.114 / / Synthes 223.641 Lcp Combi [id number] 14 Hole Limit Contact Taper End Plate Bone - [id number] Implanted:Qty: 1 on 06/30/2019 by Jacobo Shoemaker MD at [facility] Left: Tibia Synthes I 223.641 / / Synthes 204.824 3.5mm 6mm 24mm 2.5mm Self Tap Small Hexagonal Socket Low Profile - [id number] Implanted:Qty: 2 on 06/30/2019 by Jacobo Shoemaker MD at [facility] Left: Tibia Synthes I 204.824 / / Synthes 212.104 3.5mm 2.9mm 16mm Self Tap Lock Stardrive Conical Head T15 Full - [id number] Implanted:Qty: 2 on 06/30/2019 by Jacobo Shoemaker MD at [facility] Left: Tibia Synthes I 212.104 / / Explanted Type Area Child Welfare Manager Device Identifier Shelf Expiration Date Model / Serial / Lot Synthes 204.836 3.5mm 6mm 36mm 2.5mm Self Tap Small Hexagonal Socket Low Profile - [id number] Explanted:Qty: 1 on 06/30/2019 at [facility] Right: Ankle Synthes I 204.836 / / Synthes 212.117 3.5mm 2.9mm 40mm Self Tap Lock Stardrive Conical Head T15 Full - [id number] Explanted:Qty: 1 on 06/30/2019 at [facility] Right: Ankle Synthes I 212.117 / / Procedures Procedure Name Priority Date/Time Associated Diagnosis Comments SCREENING MAMMOGRAM BILATERAL W WILLIE Schedule Routine, Read Routine (OP Routine) 02/18/2023 1:39 PM CDT Screening mammogram, encounter for HEPATITIS PANEL, ACUTE Routine 06/10/2019 10:11 AM FREIGHT BRAKEMAN from Last 3 Months or Most Recently Relevant to Health Maintenance Results * Screening Mammogram Bilateral W Willie (02/18/2023 1:39 PM CDT) Anatomical Region Laterality Modality Breast Bilateral Mammography Impressions 02/19/2023 1:25 PM CDT BI-RADS?? ATLAS category (overall): 2 - Benign There is no mammographic evidence of malignancy. A 1 year screening mammogram is recommended. The patient has been or will be contacted. We recommend annual screening mammography for women at average risk of breast cancer beginning at age 40, based on guidelines of the [employer] (ACR Practice Parameter for the Performance of Screening and Diagnostic Mammography) and [employer]. For women with and elevated risk of breast cancer, please refer to the ACR Practice Parameter for specific screening recommendations. The patient will be entered into a reminder system with a target due date of 1 year for her next screening exam. Narrative 02/19/2023 1:25 PM CDT Screening Mammogram Bilateral W Willie: 02/18/23 The study was acquired using full field digital technology and interpreted from soft copy. 2D digital mammographic views, as well as 3D digital tomosynthesis were performed in the CC and MLO projections. CLINICAL: ??Screening mammogram, encounter for. ??No relevant medical history has been documented for this patient. ??No known family history of breast cancer. COMPARISONS: 01/31/2019 Breast Imaging Diagnostic Outside Reference 01/17/2019 Breast Imaging Screening Outside Reference BREAST TISSUE: The breasts have scattered areas of fibroglandular density. FINDINGS: There are unchanged benign microcalcifications in both breasts. There is no new suspicious finding in either breast on mammogram. ?? us Self Screening Mammogram IMG MAMMO PROCEDURES Fi nal Result * Hepatitis panel, acute (06/10/2019 10:11 AM FREIGHT BRAKEMAN) HepBsAg NONREACT NONREACTIVE [facility] Comment: Siemens CentaurXP using SUSU (chemiluminescent immunoassay) technology. NONREACTIVE: IgM antibodies to Hepatitis B Surface antigen not detected. REACTIVE: IgM antibodies to Hepatitis B Surface antigen detected. Reactive results will be confirmed by neutralization testing. HBsAb qn <3.10 mIU/mL [facility] Comment: Siemens CentaurXP using SUSU (chemiluminescent immunoassay) technology. 9.99 IU/L or less.....NONREACTIVE: IgM antibodies to Hepatitis B Surface antibody are not detected. 10.00 IU/L or greater..REACTIVE: IgM antibodies to Hepatitis B Surface antibody are detected. Hep B core IgM NONREACT NONREACTIVE [facility] Comment: Siemens CentaurXP using SUSU (chemiluminescent immunoassay) technology. NONREACTIVE: IgM antibodies to Hepatitis B Core antigen not detected. EQUIVOCAL: IgM antibodies to Hepatitis B Core antigen may or may not be present. Obtain a ??new specimen and retest. REACTIVE: IgM antibodies to Hepatitis B Core antigen detected. Hep A IgM NONREACT NONREACTIVE [facility] Comment: Siemens CentaurXP using SUSU (chemiluminescent immunoassay) technology. NONREACTIVE: IgM antibodies to Hepatitis A not detected. This does not exclude possibility of exposure to Hepatitis A or early acute infection. EQUIVOCAL:IgM antibodies to Hepatitis A may or may not be present. Suggest recollection and retest. REACTIVE: Antibodies to Hepatitis A detected. Hep C Ab NONREACT NONREACTIVE [facility] Comment: Siemens CentaurXP using SUSU (chemiluminescent immunoassay) technology. NONREACTIVE: Antibodies to Hepatitis C not detected. This does not exclude early acute Hepatitis C infection, possibility of exposure to Hepatitis C, antibodies below detection limit, or to lack of antibody reactivity to the antigen used in this assay. EQUIVOCAL: Antibodies to Hepatitis C may or may not be present. ??Sample to be confirmed by real-time PCR method. REACTIVE: Antibodies to Hepatitis C detected.Sample to be confirmed by real-time PCR method. 06/10/2019 10:1 1 AM FREIGHT BRAKEMAN 06/10/2019 10:47 AM FREIGHT BRAKEMAN Narrative Resulting Agency Comment IN Destiny Pereira MD LAB MICROBIOLOGY - GENERAL ORDERABLES Final Result 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
--- OUTSIDE RECORDS SUMMARY | 2024-08-13 04:58 | XMS_ITS | Encounter Summary ---
Author Organization [facility] Healthcare Address [address] [place] [address] Care Team Providers Care Evidence Custodian Name Role Phone Jose Manuel Gruber MD Unavailable [phone] Hernando Velasquez MD Primary Care Provider [phone] Reason for Referral * Diagnostic Imaging (Routine) - Closed Specialty Diagnoses / Procedures Referred By Contac t Referred To Contact Diagnoses Screening mammogram, encounter for Procedures Screening Mammogram Bilateral W Willie Screening Mammogram, Self Referral ID Status Reason Start Date Expiration Date Visits Re quested Visits Authorized [id number] Closed 11/09/2022 12/09/2023 1 1 * Diagnostic Imaging (Routine) - Closed Specialty Diagnoses / Procedures Referred By Contac t Referred To Contact Diagnoses Screening mammogram, encounter for Procedures Screening Mammogram Bilateral W Willie Screening Mammogram, Self Referral ID Status Reason Start Date Expiration Date Visits Re quested Visits Authorized [id number] Closed 11/09/2022 12/09/2023 1 1 Reason for Visit * Diagnostic Imaging (Routine) - Closed Specialty Diagnoses / Procedures Referred By Contac t Referred To Contact Diagnoses Screening mammogram, encounter for Procedures Screening Mammogram Bilateral W Willie Screening Mammogram, Self Referral ID Status Reason Start Date Expiration Date Visits Re quested Visits Authorized [id number] Closed 11/09/2022 12/09/2023 1 1 Encounter Details Date Type Department Care Team (Latest Contact Info) Description 02/18/2023 1:20 PM CDT - 02/18/2023 11:59 PM CDT Hospital Encounter [facility] [address] [facility] [address] [place] [id number] Screening mammogram, encounter for Discharge Disposition: Discharge to home or self care Social History Tobacco Use Types Packs/Day Years Used Date Smoking Tobacco: Never Smokeless Tobacco: Never Comments:Patient does not sm roman Alcohol Use Standard Drinks/Week Comments Not Currently [...] AM CDT Sexual Orientation Not on file documented as of this encounter Medications at Time of Discharge Aerochamber Plus Flow-Vu spacer 0 albuterol HFA (PROVENTIL HFA,VENTOLIN HFA,PROAIR HFA) 90 mcg/actuation inhalerIndications: Mild intermittent asthma without complication INHALE 2 PUFFS BY MOUTH EVERY 6 HOURS NEEDED FOR WHEEZING 18 g 5 3 amLODIPine (NORVASC) 10 mg tabletIndications:h ypertension Take 10 mg by mouth daily. Indications: high blood pressure atorvastatin (LIPITOR) 10 mg tablet Take 1 tablet (10 mg total) by mouth nightly 1 tablet 9 baclofen (LIORESAL) 10 mg tablet Take 10 mg by mouth 3 (three) times a day 2 baclofen (LIORESAL) 5 mg tablet Take 0.5 tablets (2.5 mg total) by mouth 3 (three) times a day with meals 1 tablet 9 busPIRone (BUSPAR) 5 mg tablet 0 cholecalciferol (VITAMIN D-3) 400 unit capsuleIndications: Vitamin D deficiency Take 400 Units by mouth daily. Indications: Vitamin D deficiency ciprofloxacin (CIPRO) 500 mg tablet Take 500 mg by mouth every 12 (twelve) hours 2 docusate sodium (COLACE) 100 mg capsuleIndications: constipation Take 100 mg by mouth daily. Indications: constipation enoxaparin (LOVENOX) 40 mg/0.4 mL syringe 0 ergocalciferol (VITAMIN D) 50,000 unit capsule TAKE 1 CAPSULE BY MOUTH EVERY WEEK ON Wednesday 2 famciclovir (FAMVIR) 250 mg tabletIndications:O ther (complete free text reason below),herpes Take 250 mg by mouth 2 (two) times a day. Indications: Other (complete free text reason below), herpes fluconazole (DIFLUCAN) 150 mg tablet 1 fluticasone propionate (FLONASE) 50 mcg/actuation nasal spray Administer 2 sprays into each nostril daily 8 fluticasone propionate (FLOVENT HFA) 110 mcg/actuation inhalerIndications: Maintenance Therapy for Asthma Inhale 2 puffs daily. Indications: Controller Medication for Asthma furosemide (LASIX) 40 mg tabletIndications:E juni Take 40 mg by mouth 2 (two) times a day. Indications: visible water retention ipratropium-albuter oL (DUO-NEB) 0.5-2.5 mg/3 mL nebulizer solution 0 lidocaine (LIDODERM) 5 % Place 1 patch on the skin daily 9 LORazepam (ATIVAN) 0.5 mg tablet Take 0.5 mg by mouth every 8 (eight) hours as needed for anxiety 0 losartan (COZAAR) 100 mg tablet 1 melatonin 5 mg tablet Take 5 mg by mouth nightly as needed metoprolol (LOPRESSOR) 25 mg tablet Take 1 tablet (25 mg total) by mouth every 6 (six) hours 1 tablet 9 Nyamyc powder 0 olmesartan (BENICAR) 40 mg tabletIndications:h ypertension Take 40 mg by mouth daily. Indications: high blood pressure ondansetron (ZOFRAN) 4 mg tablet 0 ondansetron ODT (ZOFRAN-ODT) 8 mg disintegrating tablet Take 1 tablet (8 mg total) by mouth every 8 (eight) hours as needed for nausea or vomiting 20 tablet 0 oxyCODONE (ROXICODONE) 5 mg immediate release tablet Take by mouth 2 oxyCODONE-acetamino phen (PERCOCET) 5-325 mg per tablet 07/29/[address] (PROTONIX) 40 mg EC tabletIndications:S tress Ulcer Prophylaxis Take 40 mg by mouth daily. Indications: Stress Ulcer Prophylaxis predniSONE (DELTASONE) 20 mg tablet Take 40 mg by mouth daily 2 pregabalin (LYRICA) 150 mg capsule Take 150 mg by mouth 2 (two) times a day 2 primidone (MYSOLINE) 50 mg tablet 0 vitamin E (AQUASOL E) 400 unit capsuleIndications: Vitamin E Deficiency Take 800 Units by mouth daily. Indications: deficiency of vitamin E documented as of this encounter Discharge Disposition Disposition Code Departure Means Destination Discharge to home or self care documented in this encounter Plan of Treatment Not on file documented as of this encounter Procedures Procedure Name Priority Date/Time Associated Diagnosis Comments SCREENING MAMMOGRAM BILATERAL W WILLIE Schedule Routine, Read Routine (OP Routine) 02/18/2023 1:39 PM CDT Screening mammogram, encounter for documented in this encounter Results * Screening Mammogram Bilateral W Willie [...] age 42, based on guidelines of the [employer] (ACR Practice Parameter for the Performance of Screening and Diagnostic Mammography) and [employer]. For women [...] Mammogram IMG MAMMO PROCEDURES Fi nal Result documented in this encounter Visit Diagnoses Diagnosis Screening mammogram, encounter for documented in this encounter Care Teams Evidence Custodian Relationship Specialty Start Date End Date Hernando Velasquez MD [address] [place] [address] PCP - General Internal Medicine 01/07/22 Jose Manuel Gruber MD Fellow Orthopedic Surgery 07/06/19 documented as of this encounter
--- OUTSIDE RECORDS SUMMARY | 2024-08-13 04:58 | XMS_ITS ---
Author Organization [facility] Address Unknown Allergies, Adverse Reactions, Alerts Substance Reaction Status Noted Date Resolved Date Valium active 08/03/2020 Sulfa Antibiotics active 08/03/2020 Seafood active 08/03/2020 Latex active 08/03/2020 Iodine active 09/21/2019 Fish active 09/21/2019 Problems Problem Status Start Date End Date ENCOUNTER FOR ORTHOPEDIC AFT ERCARE FOLLOWING SURGICAL AMPUTATION (Primary) (Z47.81 - ICD-10-CM) ACTIVE 07/12/2020 PERSONAL HISTORY OF COVID-19 (Z86.16 - ICD-10-CM) ACTI VE 11/28/2020 COVID-19 (U07.1 - ICD-10-CM) RESOLVED 06/21/2020 11/28/2020 ENCOUNTER FOR OBSERVATION FO R SUSPECTED EXPOSURE TO OTHER BIOLOGICAL AGENTS RULED OUT (Z03.818 - ICD-10-CM) ACTIVE 06/21/2020 NEUROMUSCULAR DYSFUNCTION OF BLADDER, 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) ACTIVE 02/06/2020 ANXIETY DISORDER, UNSPECIFIED (F41.9 - ICD-10-CM) ACTI VE 09/21/2019 MAJOR DEPRESSIVE DISORDER, S LYUDMILA EPISODE, UNSPECIFIED (F32.9 - ICD-10-CM) ACTIVE 09/21/2019 INSOMNIA, UNSPECIFIED (G47.00 - ICD-10-CM) ACTIVE 09/27/2020 HYPO-OSMOLALITY AND HYPONATREMIA (E87.1 - ICD-10-CM) A CTIVE 09/21/2019 SLEEP APNEA, UNSPECIFIED (G47.30 - ICD-10-CM) ACTIVE 09/20/2019 RESTLESS LEGS SYNDROME (G25.81 - ICD-10-CM) ACTIVE 09/23/2020 ESSENTIAL (PRIMARY) HYPERTENSION (I10 - ICD-10-CM) ACT CHRISTINA 09/21/2019 HYPERLIPIDEMIA, UNSPECIFIED (E78.5 - ICD-10-CM) ACTIVE 09/21/2019 ENCOUNTER FOR IMMUNIZATION (Z23 - ICD-10-CM) ACTIVE 07/24/2020 OTHER LACK OF COORDINATION (R27.8 - ICD-10-CM) ACTIVE 11/08/2020 CONSTIPATION, UNSPECIFIED (K59.00 - ICD-10-CM) ACTIVE 09/11/2020 CONTACT WITH AND (SUSPECTED) EXPOSURE TO OTHER VIRAL COMMUNICABLE DISEASES (Z20.828 - ICD-10-CM) ACTIVE 06/21/2020 ENCOUNTER FOR SCREENING FOR OTHER VIRAL DISEASES (Z11.59 - ICD-10-CM) ACTIVE 02/23/2020 MUSCLE WEAKNESS (GENERALIZED) (M62.81 - ICD-10-CM) ACT CHRISTINA 02/13/2020 DIFFICULTY IN WALKING, NOT E LSEWHERE CLASSIFIED (R26.2 - ICD-10-CM) ACTIVE 09/20/2019 MUSCLE WASTING AND ATROPHY, NOT ELSEWHERE CLASSIFIED, UNSPECIFIED SITE (M62.50 - ICD-10-CM) ACTIVE 09/20/2019 ANEMIA, UNSPECIFIED (D64.9 - ICD-10-CM) ACTIVE 0 09/21/2019 PNEUMONIA, UNSPECIFIED ORGANISM (J18.9 - ICD-10-CM) RE SOLVED 09/21/2019 10/10/2019 SEPSIS, UNSPECIFIED ORGANISM (A41.9 - ICD-10-CM) RESOL DAVION 09/21/2019 10/10/2019 Results * Individual Tests: CULTURE, URINE Performed by: [place], [place] [address] [facility] [address] [facility] [address] Component Value Range Date CULTURE, URINE . 02/13/2021 01 :56 pm EDT * 2019 NOVEL CORONAVIRUS, BRIANNA Performed by: [id number] [facility] [address] [address], [address] [facility] [address] Component Value Range Date 2019 NOVEL CORONAVIRUS, BRIANNA NOT DETECTED NOT DETECTED 02/12/2021 08:23 pm EDT 2019 NOVEL CORONAVIRUS, BRIANNA See Attachment 02/12/2021 08:23 pm EDT * CBC W/DIFF Performed by: [place] [address] [facility] [id number] Component Value Range Date MPV 9.1 fL 6.5-12.0 02/11/2021 08:5 9 pm EDT NUCLEATED RBC 0.3 NRBC/100 WBC <1.0 02/11/2021 08:59 pm EDT * CMP-COMPREHENSIVE METABOLIC PNL Performed by: [address] [address] Component Value Range Date CREATININE 0.8 mg/dL 0.6-1.3 02/11/2021 08:5 9 pm EDT GLUCOSE 84 02/11/2021 08:5 9 pm EDT CALCIUM 8.8 mg/dL 8.4-10.2 02/11/2021 08:5 9 pm EDT BILIRUBIN, TOTAL 0.3 mg/dL 0.2-1.2 02/11/2021 08:59 pm EDT * CBC W/DIFF Performed by: [address] [address] Component Value Range Date HEMOGLOBIN 11.8 g/dL 12.0-16.0 02/11/2021 08:5 9 pm EDT * CMP-COMPREHENSIVE METABOLIC PNL Performed by: [address] [address] Component Value Range Date POTASSIUM 4.3 mEq/L 3.5-5.3 02/11/2021 08:5 9 pm EDT SODIUM 136 mEq/L 136-145 02/11/2021 08:5 9 pm EDT BUN (UREA NITROGEN) 18 mg/dL 7-25 02/12/20 21 08:59 pm EDT CARBON DIOXIDE (CO2) 31 mEq/L 21-33 021 08:59 pm EDT CHLORIDE 96 mEq/L 98-110 02/11/2021 08:5 9 pm EDT * CBC W/DIFF Performed by: [address] [address] Component Value Range Date RBC 3.86 M/cmm 3.90-5.40 02/11/2021 08:5 9 pm EDT MCHC 32.9 g/dL 31.0-36.5 02/11/2021 08:5 9 pm EDT MCH 30.7 pg 26.0-35.0 02/11/2021 08:5 9 pm EDT HEMATOCRIT 36.0 % 36.0-48.0 02/11/2021 08:5 9 pm EDT WBC 5.9 K/cmm 4.5-10.8 02/11/2021 08:5 9 pm EDT * CMP-COMPREHENSIVE METABOLIC PNL Performed by: [address] [id number] Component Value Range Date ALT (SGPT) 18 IU/L 4-55 02/11/2021 08:5 9 pm EDT * CBC W/DIFF Performed by: [place] [id number] Component Value Range Date PLATELET 184 K/cmm 150-450 02/11/2021 08:5 9 pm EDT * CMP-COMPREHENSIVE METABOLIC PNL Performed by: [place] [id number] Component Value Range Date AST (SGOT) 14 IU/L 4-40 02/11/2021 08:5 9 pm EDT ALBUMIN 3.9 g/dL 3.5-5.5 02/11/2021 08:5 9 pm EDT PROTEIN, TOTAL 6.3 g/dL 6.0-8.3 02/11/2021 08 :59 pm EDT ALKALINE PHOS 90 IU/L 34-136 02/11/2021 08: 59 pm EDT * CBC W/DIFF Performed by: [place] [id number] Component Value Range Date RDW 14.9 % 11.0-16.0 02/11/2021 08:5 9 pm EDT NEUTROPHILS 42.5 % 40.0-80.0 02/11/2021 08:5 9 pm EDT BASO (ABSOLUTE) 0.10 K/uL 0.00-0.30 02/11/2021 0 8:59 pm EDT * CMP-COMPREHENSIVE METABOLIC PNL Performed by: [place] [id number] Component Value Range Date DFD-[id number]-[id number] 71 mL/min/1.73 m2 >60 02/11/2021 08:59 pm EDT GFR- 86 mL/min/1.73 m2 >60 08:59 pm EDT * CBC W/DIFF Performed by: [address] [id number] Component Value Range Date MCV 93.2 fL 80.0-100.0 02/11/2021 08:5 9 pm EDT LYMPHS (ABSOLUTE) 2.50 K/uL 0.90-5.50 02/11/2021 08:59 pm EDT MONOCYTES 10.8 % 2.0-12.0 02/11/2021 08:5 9 pm EDT LYMPHS 42.7 % 13.0-48.0 02/11/2021 08:5 9 pm EDT BASO 0.9 % 0.0-2.0 02/11/2021 08:5 9 pm EDT EOS 3.1 % 0.0-8.0 02/11/2021 08:5 9 pm EDT NEUTS (ABSOLUTE) 2.50 K/uL 1.50-7.60 02/11/2021 08:59 pm EDT EOS (ABSOLUTE) 0.20 K/uL 0.20-0.80 02/11/2021 08 :59 pm EDT MONOCYTES (ABSOLUTE) 0.60 K/uL 0.15-1.10 021 08:59 pm EDT * CMP-COMPREHENSIVE METABOLIC PNL Performed by: [address] [address] Component Value Range Date BUN/CREATININE RATIO 23 6-34 021 08:59 pm EDT A/G RATIO 1.6 0.8-2.0 02/11/2021 08:5 9 pm EDT * EDI SARS-COV-2 Performed by: [id number] [facility] [address] [address], [address] [place] [address] Component Value Range Date EDI SARS-COV-2 NOT DETECTED NOT DETECTED 02/08/2021 10:21 pm EDT EDI SARS-COV-2 See Attachment 02/09/20 10:21 pm EDT * Individual Tests: 2019 NOVEL CORONAVIRUS, BRIANNA Performed by: [id number] [facility] [address] [address], [address] [place] [address] Component Value Range Date 2019 NOVEL CORONAVIRUS, BRIANNA NOT DETECTED NOT DETECTED 01/21/2021 08:49 pm EDT * UA W/CULTURE IF INDICATED Performed by: [address] [id number] Component Value Range Date UA TO CX TRIGGER NO CULTURE INDICATED 06:40 pm EDT EPITHELIAL CELL FEW NEGATIVE 01/06/2021 0 6:40 pm EDT HYALINE CASTS NEGATIVE NEGATIVE 01/06/2021 06: 40 pm EDT KETONES,UR NEGATIVE NEGATIVE 01/06/2021 06:4 0 pm EDT BACTERIA,UR NEGATIVE NEGATIVE 01/06/2021 06:4 0 pm EDT PH, URINE 7.0 5.0-8.5 01/06/2021 06:4 0 pm EDT BILIRUBIN,UR NEGATIVE NEGATIVE 01/06/2021 06:4 0 pm EDT CLARITY CLEAR CLEAR 01/06/2021 06:4 0 pm EDT LEUKOCYTES,UR NEGATIVE NEGATIVE 01/06/2021 06: 40 pm EDT BLOOD,UR NEGATIVE NEGATIVE 01/06/2021 06:4 0 pm EDT WBC,UR 3-5 /HPF <6 01/06/2021 06:4 0 pm EDT PROTEIN,UR NEGATIVE NEGATIVE 01/06/2021 06:4 0 pm EDT RBC, URINE 0-2 /HPF <6 01/06/2021 06:4 0 pm EDT GLUCOSE,UR NEGATIVE NEGATIVE 01/06/2021 06:4 0 pm EDT SPECIFIC GRAVITY 1.005 1.001-1.030 01/06/2021 06:40 pm EDT UROBILINOGEN,UR NEGATIVE NEGATIVE 01/06/2021 0 6:40 pm EDT NITRITE,UR NEGATIVE NEGATIVE 01/06/2021 06:4 0 pm EDT COLOR COLORLESS YELLOW 01/06/2021 06:4 0 pm EDT * CMP-COMPREHENSIVE METABOLIC PNL Performed by: [address] [id number] Component Value Range Date POTASSIUM 3.6 mEq/L 3.5-5.3 12/25/2020 05:1 9 pm EDT * CBC W/DIFF Performed by: [address] [id number] Component Value Range Date HEMOGLOBIN 10.9 g/dL 12.0-16.0 12/25/2020 05:1 9 pm EDT * CMP-COMPREHENSIVE METABOLIC PNL Performed by: [address] [address] Component Value Range Date CARBON DIOXIDE (CO2) 31 mEq/L 21-33 021 05:19 pm EDT BUN (UREA NITROGEN) 20 mg/dL 7-25 12/26/19 21 05:19 pm EDT SODIUM 133 mEq/L 136-145 12/25/2020 05:1 9 pm EDT AST (SGOT) 10 IU/L 4-40 12/25/2020 05:1 9 pm EDT * CBC W/DIFF Performed by: [address] [address] Component Value Range Date PLATELET 196 K/cmm 150-450 12/25/2020 05:1 9 pm EDT HEMATOCRIT 33.3 % 36.0-48.0 12/25/2020 05:1 9 pm EDT * CMP-COMPREHENSIVE METABOLIC PNL Performed by: [place] [id number] Component Value Range Date ALT (SGPT) 14 IU/L 4-55 12/25/2020 05:1 9 pm EDT * CBC W/DIFF Performed by: [address] [address] Component Value Range Date WBC 5.7 K/cmm 4.5-10.8 12/25/2020 05:1 9 pm EDT MCH 29.2 pg 26.0-35.0 12/25/2020 05:1 9 pm EDT * CMP-COMPREHENSIVE METABOLIC PNL Performed by: [address] [address] Component Value Range Date CHLORIDE 94 mEq/L 98-110 12/25/2020 05:1 9 pm EDT * CBC W/DIFF Performed by: [place] [id number] Component Value Range Date RBC 3.74 M/cmm 3.90-5.40 12/25/2020 05:1 9 pm EDT MCHC 32.8 g/dL 31.0-36.5 12/25/2020 05:1 9 pm EDT MONOCYTES (ABSOLUTE) 0.70 K/uL 0.15-1.10 021 05:19 pm EDT * CMP-COMPREHENSIVE METABOLIC PNL Performed by: [place] [id number] Component Value Range Date A/G RATIO 1.9 0.8-2.0 12/25/2020 05:1 9 pm EDT * CBC W/DIFF Performed by: [place] [id number] Component Value Range Date BASO 0.8 % 0.0-2.0 12/25/2020 05:1 9 pm EDT NEUTS (ABSOLUTE) 2.40 K/uL 1.50-7.60 12/25/2020 05:19 pm EDT EOS (ABSOLUTE) 0.20 K/uL 0.20-0.80 12/25/2020 05 :19 pm EDT EOS 3.6 % 0.0-8.0 12/25/2020 05:1 9 pm EDT MCV 89.1 fL 80.0-100.0 12/25/2020 05:1 9 pm EDT MONOCYTES 12.2 % 2.0-12.0 12/25/2020 05:1 9 pm EDT LYMPHS 41.3 % 13.0-48.0 12/25/2020 05:1 9 pm EDT LYMPHS (ABSOLUTE) 2.40 K/uL 0.90-5.50 12/25/2020 05:19 pm EDT * CMP-COMPREHENSIVE METABOLIC PNL Performed by: [place] [id number] Component Value Range Date GFR- 101 mL/min/1.73 m2 >60 0 12/25/2020 05:19 pm EDT QEO-[id number]-EXFARCW 83 mL/min/1.73 m2 >60 12/25/2020 05:19 pm EDT * CBC W/DIFF Performed by: [place] [id number] Component Value Range Date NEUTROPHILS 42.1 % 40.0-80.0 12/25/2020 05:1 9 pm EDT RDW 15.0 % 11.0-16.0 12/25/2020 05:1 9 pm EDT * CMP-COMPREHENSIVE METABOLIC PNL Performed by: [place] [id number] Component Value Range Date ALBUMIN 3.7 g/dL 3.5-5.5 12/25/2020 05:1 9 pm EDT PROTEIN, TOTAL 5.6 g/dL 6.0-8.3 12/25/2020 05 :19 pm EDT ALKALINE PHOS 77 IU/L 34-136 12/25/2020 05: 19 pm EDT * CBC W/DIFF Performed by: [address] [id number] Component Value Range Date MPV 8.5 fL 6.5-12.0 12/25/2020 05:1 9 pm EDT * Individual Tests: CMP-COMPREHENSIVE METABOLIC PNL / CBC W/DIFF / TSH 3-UL Performed by: [place] [id number] Component Value Range Date TSH 3-UL 1.788 uIU/mL 0.340-5.600 12/25/2020 05:1 9 pm EDT * CBC W/DIFF Performed by: [address] [id number] Component Value Range Date NUCLEATED RBC 0.3 NRBC/100 WBC <1.0 12/25/2020 05:19 pm EDT * CMP-COMPREHENSIVE METABOLIC PNL Performed by: [address] [id number] Component Value Range Date BILIRUBIN, TOTAL 0.2 mg/dL 0.2-1.2 12/25/2020 05:19 pm EDT GLUCOSE 77 12/25/2020 05:1 9 pm EDT BUN/CREATININE RATIO 29 6-34 021 05:19 pm EDT CREATININE 0.7 mg/dL 0.6-1.3 12/25/2020 05:1 9 pm EDT CALCIUM 8.5 mg/dL 8.4-10.2 12/25/2020 05:1 9 pm EDT * CMP-COMPREHENSIVE METABOLIC PNL Performed by: [place] [id number] Component Value Range Date POTASSIUM 4.0 mEq/L 3.5-5.3 12/13/2020 04:2 3 pm EDT BUN (UREA NITROGEN) 10 mg/dL 7-25 12/14/19 04:23 pm EDT SODIUM 124 mEq/L 136-145 12/13/2020 04:2 3 pm EDT CARBON DIOXIDE (CO2) 25 mEq/L 21-33 021 04:23 pm EDT CHLORIDE 87 mEq/L 98-110 12/13/2020 04:2 3 pm EDT ALT (SGPT) 18 IU/L 4-55 12/13/2020 04:2 3 pm EDT AST (SGOT) 15 IU/L 4-40 12/13/2020 04:2 3 pm EDT ALKALINE PHOS 94 IU/L 34-136 12/13/2020 04: 23 pm EDT ALBUMIN 4.5 g/dL 3.5-5.5 12/13/2020 04:2 3 pm EDT PROTEIN, TOTAL 6.9 g/dL 6.0-8.3 12/13/2020 04 :23 pm EDT LDK-[id number]-[id number] 83 mL/min/1.73 m2 >60 12/13/2020 04:23 pm EDT GFR- 101 mL/min/1.73 m2 >60 0 12/13/2020 04:23 pm EDT A/G RATIO 1.9 0.8-2.0 12/13/2020 04:2 3 pm EDT BUN/CREATININE RATIO 14 6-34 021 04:23 pm EDT CALCIUM 9.0 mg/dL 8.4-10.2 12/13/2020 04:2 3 pm EDT CREATININE 0.7 mg/dL 0.6-1.3 12/13/2020 04:2 3 pm EDT GLUCOSE 174 12/13/2020 04:2 3 pm EDT BILIRUBIN, TOTAL 0.4 mg/dL 0.2-1.2 12/13/2020 04:23 pm EDT * Individual Tests: CMP-COMPREHENSIVE METABOLIC PNL / TSH 3-UL Performed by: [address] [id number] Component Value Range Date TSH 3-UL 2.031 uIU/mL 0.340-5.600 12/13/2020 04:2 3 pm EDT * TIQ-SPECIMEN HEMOLYZED Performed by: [address] [address] Component Value Range Date TEST NAME CMP,TSH 12/12/2020 10:3 7 pm EDT TEST NAME CMP,TSH 12/12/2020 10:3 7 pm EDT PROBLEM: SPECIMEN HEMOLYZED 10:37 pm EDT PROBLEM: SPECIMEN HEMOLYZED 10:37 pm EDT RESOLUTION: . 12/12/2020 10:3 7 pm EDT RESOLUTION: . 12/12/2020 10:3 7 pm EDT LAB WILL REDRAW (DATE): 12-13-2011/24 10:37 pm EDT LAB WILL REDRAW (DATE): 12-13-2011/24 10:37 pm EDT * Individual Tests: Primidone W/O Phenobarb Performed by: [facility] Component Value Range Date Primidone (Mysoline) 3.8 ug/mL - 020 02:52 pm EDT Primidone (Mysoline) 3.8 ug/mL - 020 02:52 pm EDT Primidone (Mysoline) 3.8 ug/mL 11-04 020 02:52 pm EDT Primidone (Mysoline) 3.8 ug/mL 11-04 020 02:52 pm EDT Primidone (Mysoline) 3.8 ug/mL - 020 02:52 pm EDT Primidone (Mysoline) 3.8 ug/mL 11-04 020 02:52 pm EDT Primidone (Mysoline) 3.8 ug/mL - 020 02:52 pm EDT * Individual Tests: SARS-CoV-2 (COVID-19) Performed by: [facility] Component Value Range Date SARS-CoV-2 (COVID-19) NOT DETECTED NOT DETECTED 2019 12:05 am EDT SARS-CoV-2 (COVID-19) NOT DETECTED NOT DETECTED 2019 12:05 am EDT SARS-CoV-2 (COVID-19) NOT DETECTED NOT DETECTED 2019 12:05 am EDT SARS-CoV-2 (COVID-19) NOT DETECTED NOT DETECTED 2019 12:05 am EDT * Hepatic Function Panel, AMA Performed by: [facility] Component Value Range Date ALBUMIN, SERUM 4.5 G/DL 3.5-5.7 04/11/2020 01 :08 pm EDT ALBUMIN, SERUM 4.5 G/DL 3.5-5.7 04/11/2020 01 :08 pm EDT ALBUMIN, SERUM 4.5 G/DL 3.5-5.7 04/11/2020 01 :08 pm EDT ALBUMIN, SERUM 4.5 G/DL 3.5-5.7 04/11/2020 01 :08 pm EDT ALT (GPT) 28 U/L 704/11/2020 01:0 8 pm EDT ALT (GPT) 28 U/L 04/11/2020 01:0 8 pm EDT ALT (GPT) 28 U/L 04/11/2020 01:0 8 pm EDT ALT (GPT) 28 U/L 04/11/2020 01:0 8 pm EDT * Basic Metabolic Panel, AMA Performed by: [facility] Component Value Range Date GFR EST, 76 ML/MIN/1.73m2 >=60 04/11/2020 01:08 pm EDT GFR EST, 76 ML/MIN/1.73m2 >=60 04/11/2020 01:08 pm EDT GFR EST, 76 ML/MIN/1.73m2 >=60 04/11/2020 01:08 pm EDT GFR EST, 76 ML/MIN/1.73m2 >=60 04/11/2020 01:08 pm EDT GFR EST, NON 62 ML/MIN/1.73m2 >=60 04/11/2020 01:08 pm EDT GFR EST, NON 62 ML/MIN/1.73m2 >=60 04/11/2020 01:08 pm EDT GFR EST, NON 62 ML/MIN/1.73m2 >=60 04/11/2020 01:08 pm EDT GFR EST, NON 62 ML/MIN/1.73m2 >=60 04/11/2020 01:08 pm EDT * Complete Blood Count/Auto Diff Performed by: [facility] Component Value Range Date DIFFERENTIAL TYPE AUTO 04/11/2020 01:08 pm EDT DIFFERENTIAL TYPE AUTO 04/11/2020 01:08 pm EDT DIFFERENTIAL TYPE AUTO 04/11/2020 01:08 pm EDT DIFFERENTIAL TYPE AUTO 04/11/2020 01:08 pm EDT * Basic Metabolic Panel, AMA Performed by: [facility] Component Value Range Date GLUCOSE 111 MG/DL 70-105 04/11/2020 01:0 8 pm EDT GLUCOSE 111 MG/DL 70-105 04/11/2020 01:0 8 pm EDT GLUCOSE 111 MG/DL 70-105 04/11/2020 01:0 8 pm EDT GLUCOSE 111 MG/DL 70-105 04/11/2020 01:0 8 pm EDT ANION GAP 18 MMOL/L 04/11/2020 01:0 8 pm EDT ANION GAP 18 MMOL/L 04/11/2020 01:0 8 pm EDT ANION GAP 18 MMOL/L 04/11/2020 01:0 8 pm EDT ANION GAP 18 MMOL/L 04/11/2020 01:0 8 pm EDT * Hepatic Function Panel, AMA Performed by: [facility] Component Value Range Date BILIRUBIN, TOTAL 0.2 MG/DL 0.3-1.0 04/11/2020 01:08 pm EDT BILIRUBIN, TOTAL 0.2 MG/DL 0.3-1.0 04/11/2020 01:08 pm EDT BILIRUBIN, TOTAL 0.2 MG/DL 0.3-1.0 04/11/2020 01:08 pm EDT BILIRUBIN, TOTAL 0.2 MG/DL 0.3-1.0 04/11/2020 01:08 pm EDT BILIRUBIN, DIRECT <0.01 MG/DL 0.03-0.18 04/11/2020 01:08 pm EDT BILIRUBIN, DIRECT <0.01 MG/DL 0.03-0.18 04/11/2020 01:08 pm EDT BILIRUBIN, DIRECT <0.01 MG/DL 0.03-0.18 04/11/2020 01:08 pm EDT BILIRUBIN, DIRECT <0.01 MG/DL 0.03-0.18 04/11/2020 01:08 pm EDT BILIRUBIN, INDIRECT 0.2 0 - 1 04/11/20 01:08 pm EDT BILIRUBIN, INDIRECT 0.2 0 - 1 04/11/20 01:08 pm EDT BILIRUBIN, INDIRECT 0.2 0 - 1 04/11/20 01:08 pm EDT BILIRUBIN, INDIRECT 0.2 0 - 1 04/11/20 01:08 pm EDT * Basic Metabolic Panel, AMA Performed by: [facility] Component Value Range Date CALCIUM 10.1 MG/DL 8.6-10.3 04/11/2020 01:0 8 pm EDT CALCIUM 10.1 MG/DL 8.6-10.3 04/11/2020 01:0 8 pm EDT CALCIUM 10.1 MG/DL 8.6-10.3 04/11/2020 01:0 8 pm EDT CALCIUM 10.1 MG/DL 8.6-10.3 04/11/2020 01:0 8 pm EDT OSMOLALITY-CALCULATED 261 MOSM/KG 270 - 310 2019 01:08 pm EDT OSMOLALITY-CALCULATED 261 MOSM/KG 270 - 310 2019 01:08 pm EDT OSMOLALITY-CALCULATED 261 MOSM/KG 270 - 310 2019 01:08 pm EDT OSMOLALITY-CALCULATED 261 MOSM/KG 270 - 310 2019 01:08 pm EDT CREATININE 0.9 MG/DL 0.6-1.2 04/11/2020 01:0 8 pm EDT CREATININE 0.9 MG/DL 0.6-1.2 04/11/2020 01:0 8 pm EDT CREATININE 0.9 MG/DL 0.6-1.2 04/11/2020 01:0 8 pm EDT CREATININE 0.9 MG/DL 0.6-1.2 04/11/2020 01:0 8 pm EDT POTASSIUM 4.7 MMOL/L 3.5-5.1 04/11/2020 01:0 8 pm EDT POTASSIUM 4.7 MMOL/L 3.5-5.1 04/11/2020 01:0 8 pm EDT POTASSIUM 4.7 MMOL/L 3.5-5.1 04/11/2020 01:0 8 pm EDT POTASSIUM 4.7 MMOL/L 3.5-5.1 04/11/2020 01:0 8 pm EDT * Complete Blood Count/Auto Diff Performed by: [facility] Component Value Range Date HEMOGLOBIN 12.3 G/DL 12.0 - 16.0 04/11/2020 01:0 8 pm EDT HEMOGLOBIN 12.3 G/DL 12.0 - 16.0 04/11/2020 01:0 8 pm EDT HEMOGLOBIN 12.3 G/DL 12.0 - 16.0 04/11/2020 01:0 8 pm EDT HEMOGLOBIN 12.3 G/DL 12.0 - 16.0 04/11/2020 01:0 8 pm EDT * Basic Metabolic Panel, AMA Performed by: [facility] Component Value Range Date BUN 22 MG/DL 02-1604/11/2020 01:0 8 pm EDT BUN 22 MG/DL 02-1604/11/2020 01:0 8 pm EDT BUN 22 MG/DL 02-1604/11/2020 01:0 8 pm EDT BUN 22 MG/DL 02-1604/11/2020 01:0 8 pm EDT CHLORIDE 94 MMOL/L 98-107 04/11/2020 01:0 8 pm EDT CHLORIDE 94 MMOL/L 98-107 04/11/2020 01:0 8 pm EDT CHLORIDE 94 MMOL/L 98-107 04/11/2020 01:0 8 pm EDT CHLORIDE 94 MMOL/L 98-107 04/11/2020 01:0 8 pm EDT CARBON DIOXIDE 26.2 MMOL/L 04/11/2020 01 :08 pm EDT CARBON DIOXIDE 26.2 MMOL/L 04/11/2020 01 :08 pm EDT CARBON DIOXIDE 26.2 MMOL/L 04/11/2020 01 :08 pm EDT CARBON DIOXIDE 26.2 MMOL/L 04/11/2020 01 :08 pm EDT SODIUM 133 MMOL/L 136-145 04/11/2020 01:0 8 pm EDT SODIUM 133 MMOL/L 136-145 04/11/2020 01:0 8 pm EDT SODIUM 133 MMOL/L 136-145 04/11/2020 01:0 8 pm EDT SODIUM 133 MMOL/L 136-145 04/11/2020 01:0 8 pm EDT * Hepatic Function Panel, AMA Performed by: [facility] Component Value Range Date AST (GOT) 17 U/L 13-39 04/11/2020 01:0 8 pm EDT AST (GOT) 17 U/L -04/11/2020 01:0 8 pm EDT AST (GOT) 17 U/L -04/11/2020 01:0 8 pm EDT AST (GOT) 17 U/L -04/11/2020 01:0 8 pm EDT * Complete Blood Count/Auto Diff Performed by: [facility] Component Value Range Date WHITE BLOOD CELLS (WBC) 9.2 K/UL 4.0-10.0 03/26 01:08 pm EDT WHITE BLOOD CELLS (WBC) 9.2 K/UL 4.0-10.0 03/26 01:08 pm EDT WHITE BLOOD CELLS (WBC) 9.2 K/UL 4.0-10.0 03/26 01:08 pm EDT WHITE BLOOD CELLS (WBC) 9.2 K/UL 4.0-10.0 03/26 01:08 pm EDT PLATELET COUNT 259 K/UL 140-440 04/11/2020 01 :08 pm EDT PLATELET COUNT 259 K/UL 140-440 04/11/2020 01 :08 pm EDT PLATELET COUNT 259 K/UL 140-440 04/11/2020 01 :08 pm EDT PLATELET COUNT 259 K/UL 140-440 04/11/2020 01 :08 pm EDT HEMATOCRIT 36.1 % 37.0-47.0 04/11/2020 01:0 8 pm EDT HEMATOCRIT 36.1 % 37.0-47.0 04/11/2020 01:0 8 pm EDT HEMATOCRIT 36.1 % 37.0-47.0 04/11/2020 01:0 8 pm EDT HEMATOCRIT 36.1 % 37.0-47.0 04/11/2020 01:0 8 pm EDT MCV 94.1 FL 80-94 04/11/2020 01:0 8 pm EDT MCV 94.1 FL 80-94 04/11/2020 01:0 8 pm EDT MCV 94.1 FL 80-94 04/11/2020 01:0 8 pm EDT MCV 94.1 FL 80-94 04/11/2020 01:0 8 pm EDT RED BLOOD CELLS (RBC) 3.83 M/UL 4.2-5.4 2019 01:08 pm EDT RED BLOOD CELLS (RBC) 3.83 M/UL 4.2-5.4 2019 01:08 pm EDT RED BLOOD CELLS (RBC) 3.83 M/UL 4.2-5.4 2019 01:08 pm EDT RED BLOOD CELLS (RBC) 3.83 M/UL 4.2-5.4 2019 01:08 pm EDT MCHC 34.2 G/DL 32-36 04/11/2020 01:0 8 pm EDT MCHC 34.2 G/DL 32-36 04/11/2020 01:0 8 pm EDT MCHC 34.2 G/DL 32-36 04/11/2020 01:0 8 pm EDT MCHC 34.2 G/DL 32-36 04/11/2020 01:0 8 pm EDT MCH 32.2 PG 27-32 04/11/2020 01:0 8 pm EDT MCH 32.2 PG 27-32 04/11/2020 01:0 8 pm EDT MCH 32.2 PG 27-32 04/11/2020 01:0 8 pm EDT MCH 32.2 PG 27-32 04/11/2020 01:0 8 pm EDT * Hepatic Function Panel, AMA Performed by: Open CS Component Value Range Date ALBUMIN/GLOBULIN RATIO 2.0 1 - 2.8 04/11 01:08 pm EDT ALBUMIN/GLOBULIN RATIO 2.0 1 - 2.8 04/11 01:08 pm EDT ALBUMIN/GLOBULIN RATIO 2.0 1 - 2.8 04/11 01:08 pm EDT ALBUMIN/GLOBULIN RATIO 2.0 1 - 2.8 04/11 01:08 pm EDT GLOBULIN 2.3 G/DL 1.5 - 3.8 04/11/2020 01:0 8 pm EDT GLOBULIN 2.3 G/DL 1.5 - 3.8 04/11/2020 01:0 8 pm EDT GLOBULIN 2.3 G/DL 1.5 - 3.8 04/11/2020 01:0 8 pm EDT GLOBULIN 2.3 G/DL 1.5 - 3.8 04/11/2020 01:0 8 pm EDT * Complete Blood Count/Auto Diff Performed by: Open CS Component Value Range Date MONOCYTES, ABS 0.90 K/UL 0.0-0.9 04/11/2020 01 :08 pm EDT MONOCYTES, ABS 0.90 K/UL 0.0-0.9 04/11/2020 01 :08 pm EDT MONOCYTES, ABS 0.90 K/UL 0.0-0.9 04/11/2020 01 :08 pm EDT MONOCYTES, ABS 0.90 K/UL 0.0-0.9 04/11/2020 01 :08 pm EDT NEUTROPHILS, ABS 4.60 K/UL 2.0-6.9 04/11/2020 01:08 pm EDT NEUTROPHILS, ABS 4.60 K/UL 2.0-6.9 04/11/2020 01:08 pm EDT NEUTROPHILS, ABS 4.60 K/UL 2.0-6.9 04/11/2020 01:08 pm EDT NEUTROPHILS, ABS 4.60 K/UL 2.0-6.9 04/11/2020 01:08 pm EDT * Basic Metabolic Panel, AMA Performed by: Open CS Component Value Range Date BUN/CREATININE RATIO 24 6 - 20 020 01:08 pm EDT BUN/CREATININE RATIO 24 6 - 20 020 01:08 pm EDT BUN/CREATININE RATIO 24 6 - 20 020 01:08 pm EDT BUN/CREATININE RATIO 24 6 - 20 020 01:08 pm EDT * Complete Blood Count/Auto Diff Performed by: Open CS Component Value Range BASOPHILS, % 0.6 % 0.0-2.5 04/11/2020 01:0 8 pm EDT BASOPHILS, % 0.6 % 0.0-2.5 04/11/2020 01:0 8 pm EDT BASOPHILS, % 0.6 % 0.0-2.5 04/11/2020 01:0 8 pm EDT BASOPHILS, % 0.6 % 0.0-2.5 04/11/2020 01:0 8 pm EDT LYMPHOCYTES, ABS 3.40 K/UL 0.6-3.4 04/11/2020 01:08 pm EDT LYMPHOCYTES, ABS 3.40 K/UL 0.6-3.4 04/11/2020 01:08 pm EDT LYMPHOCYTES, ABS 3.40 K/UL 0.6-3.4 04/11/2020 01:08 pm EDT LYMPHOCYTES, ABS 3.40 K/UL 0.6-3.4 04/11/2020 01:08 pm EDT EOSINOPHILS, ABS 0.30 K/UL 0.0-0.5 04/11/2020 01:08 pm EDT EOSINOPHILS, ABS 0.30 K/UL 0.0-0.5 04/11/2020 01:08 pm EDT EOSINOPHILS, ABS 0.30 K/UL 0.0-0.5 04/11/2020 01:08 pm EDT EOSINOPHILS, ABS 0.30 K/UL 0.0-0.5 04/11/2020 01:08 pm EDT EOSINOPHILS, % 3.2 % 0.0-4.0 04/11/2020 01 :08 pm EDT EOSINOPHILS, % 3.2 % 0.0-4.0 04/11/2020 01 :08 pm EDT EOSINOPHILS, % 3.2 % 0.0-4.0 04/11/2020 01 :08 pm EDT EOSINOPHILS, % 3.2 % 0.0-4.0 04/11/2020 01 :08 pm EDT MONOCYTES, % 9.5 % 0.0-8.0 04/11/2020 01:0 8 pm EDT MONOCYTES, % 9.5 % 0.0-8.0 04/11/2020 01:0 8 pm EDT MONOCYTES, % 9.5 % 0.0-8.0 04/11/2020 01:0 8 pm EDT MONOCYTES, % 9.5 % 0.0-8.0 04/11/2020 01:0 8 pm EDT NEUTROPHILS, % 50.1 % 36.0-66.0 04/11/2020 01 :08 pm EDT NEUTROPHILS, % 50.1 % 36.0-66.0 04/11/2020 01 :08 pm EDT NEUTROPHILS, % 50.1 % 36.0-66.0 04/11/2020 01 :08 pm EDT NEUTROPHILS, % 50.1 % 36.0-66.0 04/11/2020 01 :08 pm EDT BASOPHILS, ABS 0.10 K/UL 0.0-0.3 04/11/2020 01 :08 pm EDT BASOPHILS, ABS 0.10 K/UL 0.0-0.3 04/11/2020 01 :08 pm EDT BASOPHILS, ABS 0.10 K/UL 0.0-0.3 04/11/2020 01 :08 pm EDT BASOPHILS, ABS 0.10 K/UL 0.0-0.3 04/11/2020 01 :08 pm EDT LYMPHOCYTES, % 36.6 % 24.0-44.0 04/11/2020 01 :08 pm EDT LYMPHOCYTES, % 36.6 % 24.0-44.0 04/11/2020 01 :08 pm EDT LYMPHOCYTES, % 36.6 % 24.0-44.0 04/11/2020 01 :08 pm EDT LYMPHOCYTES, % 36.6 % 24.0-44.0 04/11/2020 01 :08 pm EDT * Hepatic Function Panel, AMA Performed by: Open CS Component Value Range Date PROTEIN, TOTAL 6.8 G/DL 6.4-8.9 04/11/2020 01 :08 pm EDT PROTEIN, TOTAL 6.8 G/DL 6.4-8.9 04/11/2020 01 :08 pm EDT PROTEIN, TOTAL 6.8 G/DL 6.4-8.9 04/11/2020 01 :08 pm EDT PROTEIN, TOTAL 6.8 G/DL 6.4-8.9 04/11/2020 01 :08 pm EDT ALKALINE PHOSPHATASE 74 U/L 34-104 020 01:08 pm EDT ALKALINE PHOSPHATASE 74 U/L 34-104 020 01:08 pm EDT ALKALINE PHOSPHATASE 74 U/L 34-104 020 01:08 pm EDT ALKALINE PHOSPHATASE 74 U/L 34-104 020 01:08 pm EDT * Complete Blood Count/Auto Diff Performed by: Open CS Component Value Range Date RDW 14.3 % 12.0-16.0 04/11/2020 01:0 8 pm EDT RDW 14.3 % 12.0-16.0 04/11/2020 01:0 8 pm EDT RDW 14.3 % 12.0-16.0 04/11/2020 01:0 8 pm EDT RDW 14.3 % 12.0-16.0 04/11/2020 01:0 8 pm EDT * Individual Tests: SARS-CoV-2 (COVID-19) Performed by: Smeet Value Range Date SARS-CoV-2 (COVID-19) NOT DETECTED NOT DETECTED 2019 05:35 am EDT SARS-CoV-2 (COVID-19) NOT DETECTED NOT DETECTED 2019 05:35 am EDT SARS-CoV-2 (COVID-19) NOT DETECTED NOT DETECTED 2019 05:35 am EDT SARS-CoV-2 (COVID-19) NOT DETECTED NOT DETECTED 2019 05:35 am EDT * Individual Tests: SARS-CoV-2 (COVID-19) Performed by: Open CS Component Value Range Date SARS-CoV-2 (COVID-19) NOT DETECTED NOT DETECTED 2019 10:20 pm EDT SARS-CoV-2 (COVID-19) NOT DETECTED NOT DETECTED 2019 10:20 pm EDT SARS-CoV-2 (COVID-19) NOT DETECTED NOT DETECTED 2019 10:20 pm EDT SARS-CoV-2 (COVID-19) NOT DETECTED NOT DETECTED 2019 10:20 pm EDT * Individual Tests: SARS-CoV-2 (COVID-19) Performed by: Open CS Component Value Range Date SARS-CoV-2 (COVID-19) NOT DETECTED NOT DETECTED 2019 09:10 pm EDT SARS-CoV-2 (COVID-19) NOT DETECTED NOT DETECTED 2019 09:10 pm EDT SARS-CoV-2 (COVID-19) NOT DETECTED NOT DETECTED 2019 09:10 pm EDT SARS-CoV-2 (COVID-19) NOT DETECTED NOT DETECTED 2019 09:10 pm EDT * Individual Tests: SARS-CoV-2 (COVID-19) Performed by: Open CS Component Value Range SARS-CoV-2 (COVID-19) NOT DETECTED NOT DETECTED 2019 10:50 pm EDT SARS-CoV-2 (COVID-19) NOT DETECTED NOT DETECTED 2019 10:50 pm EDT SARS-CoV-2 (COVID-19) NOT DETECTED NOT DETECTED 2019 10:50 pm EDT SARS-CoV-2 (COVID-19) NOT DETECTED NOT DETECTED 2019 10:50 pm EDT * Basic Metabolic Panel, AMA Performed by: Open CS Component Value Range Date CREATININE 0.9 MG/DL 0.6-1.2 01/10/2020 12:0 3 pm EDT CREATININE 0.9 MG/DL 0.6-1.2 01/10/2020 12:0 3 pm EDT CREATININE 0.9 MG/DL 0.6-1.2 01/10/2020 12:0 3 pm EDT CREATININE 0.9 MG/DL 0.6-1.2 01/10/2020 12:0 3 pm EDT OSMOLALITY-CALCULATED 259 MOSM/KG 270 - 310 2019 12:03 pm EDT OSMOLALITY-CALCULATED 259 MOSM/KG 270 - 310 2019 12:03 pm EDT OSMOLALITY-CALCULATED 259 MOSM/KG 270 - 310 2019 12:03 pm EDT OSMOLALITY-CALCULATED 259 MOSM/KG 270 - 310 2019 12:03 pm EDT GLUCOSE 134 MG/DL 70-105 01/10/2020 12:0 3 pm EDT GLUCOSE 134 MG/DL 70-105 01/10/2020 12:0 3 pm EDT GLUCOSE 134 MG/DL 70-105 01/10/2020 12:0 3 pm EDT GLUCOSE 134 MG/DL 70-105 01/10/2020 12:0 3 pm EDT CALCIUM 9.1 MG/DL 8.6-10.3 01/10/2020 12:0 3 pm EDT CALCIUM 9.1 MG/DL 8.6-10.3 01/10/2020 12:0 3 pm EDT CALCIUM 9.1 MG/DL 8.6-10.3 01/10/2020 12:0 3 pm EDT CALCIUM 9.1 MG/DL 8.6-10.3 01/10/2020 12:0 3 pm EDT GFR EST, 76 ML/MIN/1.73m2 >=60 01/10/2020 12:03 pm EDT GFR EST, 76 ML/MIN/1.73m2 >=60 01/10/2020 12:03 pm EDT GFR EST, 76 ML/MIN/1.73m2 >=60 01/10/2020 12:03 pm EDT GFR EST, 76 ML/MIN/1.73m2 >=60 01/10/2020 12:03 pm EDT GFR EST, NON 62 ML/MIN/1.73m2 >=60 01/10/2020 12:03 pm EDT GFR EST, NON 62 ML/MIN/1.73m2 >=60 01/10/2020 12:03 pm EDT GFR EST, NON 62 ML/MIN/1.73m2 >=60 01/10/2020 12:03 pm EDT GFR EST, NON 62 ML/MIN/1.73m2 >=60 01/10/2020 12:03 pm EDT * Complete Blood Count/Auto Diff Performed by: Open CS Component Value Range Date DIFFERENTIAL TYPE AUTO 01/10/2020 12:03 pm EDT DIFFERENTIAL TYPE AUTO 01/10/2020 12:03 pm EDT DIFFERENTIAL TYPE AUTO 01/10/2020 12:03 pm EDT DIFFERENTIAL TYPE AUTO 01/10/2020 12:03 pm EDT * Basic Metabolic Panel, AMA Performed by: Open CS Component Value Range Date ANION GAP 10 MMOL/L - 01/10/2020 12:0 3 pm EDT ANION GAP 10 MMOL/L - 01/10/2020 12:0 3 pm EDT ANION GAP 10 MMOL/L - 01/10/2020 12:0 3 pm EDT ANION GAP 10 MMOL/L - 01/10/2020 12:0 3 pm EDT * Complete Blood Count/Auto Diff Performed by: Open CS Component Value Range Date RDW 14.3 % 12.0-16.0 01/10/2020 12:0 3 pm EDT RDW 14.3 % 12.0-16.0 01/10/2020 12:0 3 pm EDT RDW 14.3 % 12.0-16.0 01/10/2020 12:0 3 pm EDT RDW 14.3 % 12.0-16.0 01/10/2020 12:0 3 pm EDT NEUTROPHILS, % 50.3 % 36.0-66.0 01/10/2020 12 :03 pm EDT NEUTROPHILS, % 50.3 % 36.0-66.0 01/10/2020 12 :03 pm EDT NEUTROPHILS, % 50.3 % 36.0-66.0 01/10/2020 12 :03 pm EDT NEUTROPHILS, % 50.3 % 36.0-66.0 01/10/2020 12 :03 pm EDT BASOPHILS, ABS 0.10 K/UL 0.0-0.3 01/10/2020 12 :03 pm EDT BASOPHILS, ABS 0.10 K/UL 0.0-0.3 01/10/2020 12 :03 pm EDT BASOPHILS, ABS 0.10 K/UL 0.0-0.3 01/10/2020 12 :03 pm EDT BASOPHILS, ABS 0.10 K/UL 0.0-0.3 01/10/2020 12 :03 pm EDT LYMPHOCYTES, % 34.5 % 24.0-44.0 01/10/2020 12 :03 pm EDT LYMPHOCYTES, % 34.5 % 24.0-44.0 01/10/2020 12 :03 pm EDT LYMPHOCYTES, % 34.5 % 24.0-44.0 01/10/2020 12 :03 pm EDT LYMPHOCYTES, % 34.5 % 24.0-44.0 01/10/2020 12 :03 pm EDT BASOPHILS, % 0.9 % 0.0-2.5 01/10/2020 12:0 3 pm EDT BASOPHILS, % 0.9 % 0.0-2.5 01/10/2020 12:0 3 pm EDT BASOPHILS, % 0.9 % 0.0-2.5 01/10/2020 12:0 3 pm EDT BASOPHILS, % 0.9 % 0.0-2.5 01/10/2020 12:0 3 pm EDT LYMPHOCYTES, ABS 2.30 K/UL 0.6-3.4 01/10/2020 12:03 pm EDT LYMPHOCYTES, ABS 2.30 K/UL 0.6-3.4 01/10/2020 12:03 pm EDT LYMPHOCYTES, ABS 2.30 K/UL 0.6-3.4 01/10/2020 12:03 pm EDT LYMPHOCYTES, ABS 2.30 K/UL 0.6-3.4 01/10/2020 12:03 pm EDT MONOCYTES, % 10.9 % 0.0-8.0 01/10/2020 12:0 3 pm EDT MONOCYTES, % 10.9 % 0.0-8.0 01/10/2020 12:0 3 pm EDT MONOCYTES, % 10.9 % 0.0-8.0 01/10/2020 12:0 3 pm EDT MONOCYTES, % 10.9 % 0.0-8.0 01/10/2020 12:0 3 pm EDT NEUTROPHILS, ABS 3.40 K/UL 2.0-6.9 01/10/2020 12:03 pm EDT NEUTROPHILS, ABS 3.40 K/UL 2.0-6.9 01/10/2020 12:03 pm EDT NEUTROPHILS, ABS 3.40 K/UL 2.0-6.9 01/10/2020 12:03 pm EDT NEUTROPHILS, ABS 3.40 K/UL 2.0-6.9 01/10/2020 12:03 pm EDT EOSINOPHILS, ABS 0.20 K/UL 0.0-0.5 01/10/2020 12:03 pm EDT EOSINOPHILS, ABS 0.20 K/UL 0.0-0.5 01/10/2020 12:03 pm EDT EOSINOPHILS, ABS 0.20 K/UL 0.0-0.5 01/10/2020 12:03 pm EDT EOSINOPHILS, ABS 0.20 K/UL 0.0-0.5 01/10/2020 12:03 pm EDT MONOCYTES, ABS 0.70 K/UL 0.0-0.9 01/10/2020 12 :03 pm EDT MONOCYTES, ABS 0.70 K/UL 0.0-0.9 01/10/2020 12 :03 pm EDT MONOCYTES, ABS 0.70 K/UL 0.0-0.9 01/10/2020 12 :03 pm EDT MONOCYTES, ABS 0.70 K/UL 0.0-0.9 01/10/2020 12 :03 pm EDT EOSINOPHILS, % 3.4 % 0.0-4.0 01/10/2020 12 :03 pm EDT EOSINOPHILS, % 3.4 % 0.0-4.0 01/10/2020 12 :03 pm EDT EOSINOPHILS, % 3.4 % 0.0-4.0 01/10/2020 12 :03 pm EDT EOSINOPHILS, % 3.4 % 0.0-4.0 01/10/2020 12 :03 pm EDT * Basic Metabolic Panel, AMA Performed by: Open CS Component Value Range Date BUN/CREATININE RATIO 14 6 - 20 020 12:03 pm EDT BUN/CREATININE RATIO 14 6 - 20 020 12:03 pm EDT BUN/CREATININE RATIO 14 6 - 20 020 12:03 pm EDT BUN/CREATININE RATIO 14 6 - 20 020 12:03 pm EDT * Complete Blood Count/Auto Diff Performed by: Open CS Component Value Range Date MCH 30.3 PG 27-32 01/10/2020 12:0 3 pm EDT MCH 30.3 PG 27-32 01/10/2020 12:0 3 pm EDT MCH 30.3 PG 27-32 01/10/2020 12:0 3 pm EDT MCH 30.3 PG 27-32 01/10/2020 12:0 3 pm EDT HEMATOCRIT 36.1 % 37.0-47.0 01/10/2020 12:0 3 pm EDT HEMATOCRIT 36.1 % 37.0-47.0 01/10/2020 12:0 3 pm EDT HEMATOCRIT 36.1 % 37.0-47.0 01/10/2020 12:0 3 pm EDT HEMATOCRIT 36.1 % 37.0-47.0 01/10/2020 12:0 3 pm EDT WHITE BLOOD CELLS (WBC) 6.7 K/UL 4.0-10.0 12/24 12:03 pm EDT WHITE BLOOD CELLS (WBC) 6.7 K/UL 4.0-10.0 12/24 12:03 pm EDT WHITE BLOOD CELLS (WBC) 6.7 K/UL 4.0-10.0 12/24 12:03 pm EDT WHITE BLOOD CELLS (WBC) 6.7 K/UL 4.0-10.0 12/24 12:03 pm EDT RED BLOOD CELLS (RBC) 4.04 M/UL 4.2-5.4 2019 12:03 pm EDT RED BLOOD CELLS (RBC) 4.04 M/UL 4.2-5.4 2019 12:03 pm EDT RED BLOOD CELLS (RBC) 4.04 M/UL 4.2-5.4 2019 12:03 pm EDT RED BLOOD CELLS (RBC) 4.04 M/UL 4.2-5.4 2019 12:03 pm EDT MCHC 33.9 G/DL 32-36 01/10/2020 12:0 3 pm EDT MCHC 33.9 G/DL 32-36 01/10/2020 12:0 3 pm EDT MCHC 33.9 G/DL 32-36 01/10/2020 12:0 3 pm EDT MCHC 33.9 G/DL 32-36 01/10/2020 12:0 3 pm EDT MCV 89.3 FL 80-94 01/10/2020 12:0 3 pm EDT MCV 89.3 FL 80-94 01/10/2020 12:0 3 pm EDT MCV 89.3 FL 80-94 01/10/2020 12:0 3 pm EDT MCV 89.3 FL 80-94 01/10/2020 12:0 3 pm EDT PLATELET COUNT 177 K/UL 140-440 01/10/2020 12 :03 pm EDT PLATELET COUNT 177 K/UL 140-440 01/10/2020 12 :03 pm EDT PLATELET COUNT 177 K/UL 140-440 01/10/2020 12 :03 pm EDT PLATELET COUNT 177 K/UL 140-440 01/10/2020 12 :03 pm EDT * Basic Metabolic Panel, AMA Performed by: Open CS Component Value Range Date SODIUM 133 MMOL/L 136-145 01/10/2020 12:0 3 pm EDT SODIUM 133 MMOL/L 136-145 01/10/2020 12:0 3 pm EDT SODIUM 133 MMOL/L 136-145 01/10/2020 12:0 3 pm EDT SODIUM 133 MMOL/L 136-145 01/10/2020 12:0 3 pm EDT BUN 13 MG/DL 02-1601/10/2020 12:0 3 pm EDT BUN 13 MG/DL 02-1601/10/2020 12:0 3 pm EDT BUN 13 MG/DL 02-1601/10/2020 12:0 3 pm EDT BUN 13 MG/DL 02-1601/10/2020 12:0 3 pm EDT CARBON DIOXIDE 33.9 MMOL/L 01/10/2020 12 :03 pm EDT CARBON DIOXIDE 33.9 MMOL/L -01/10/2020 12 :03 pm EDT CARBON DIOXIDE 33.9 MMOL/L 01/10/2020 12 :03 pm EDT CARBON DIOXIDE 33.9 MMOL/L -01/10/2020 12 :03 pm EDT CHLORIDE 93 MMOL/L 98-107 01/10/2020 12:0 3 pm EDT CHLORIDE 93 MMOL/L 98-107 01/10/2020 12:0 3 pm EDT CHLORIDE 93 MMOL/L 98-107 01/10/2020 12:0 3 pm EDT CHLORIDE 93 MMOL/L 98-107 01/10/2020 12:0 3 pm EDT * Complete Blood Count/Auto Diff Performed by: Open CS Component Value Range Date HEMOGLOBIN 12.3 G/DL 12.0 - 16.0 01/10/2020 12:0 3 pm EDT HEMOGLOBIN 12.3 G/DL 12.0 - 16.0 01/10/2020 12:0 3 pm EDT HEMOGLOBIN 12.3 G/DL 12.0 - 16.0 01/10/2020 12:0 3 pm EDT HEMOGLOBIN 12.3 G/DL 12.0 - 16.0 01/10/2020 12:0 3 pm EDT * Basic Metabolic Panel, AMA Performed by: Open CS Component Value Range Date POTASSIUM 3.9 MMOL/L 3.5-5.1 01/10/2020 12:0 3 pm EDT POTASSIUM 3.9 MMOL/L 3.5-5.1 01/10/2020 12:0 3 pm EDT POTASSIUM 3.9 MMOL/L 3.5-5.1 01/10/2020 12:0 3 pm EDT POTASSIUM 3.9 MMOL/L 3.5-5.1 01/10/2020 12:0 3 pm EDT * XRAY CHEST 2 VIEW Performed by: ContactPoint Component Value Range Date XRAY CHEST 2 VIEW XRAY CHEST 2 VIEWSee NoteFINDINGS: Examination demonstrates no mediastinal shift. There is no acute alveolar/interstitial infiltrate, consolidation, CHF, mass or pneumothorax. The cardiac silhouette, costophrenic angles and hemidiaphragms are intact. The aorta appears to be unremarkable. The thoracic spine is within normal limits. No active tuberculosis.CONCLUSION: No acute cardiopulmonary disease. No active tuberculosis. The findings are unchanged from 09/24/2020.ELECTRONICALLY SIGNED BY JAMSHID MEDRANO M.D. 01/04/2021 3:28:31 PM CDT.Reason for Study: Z11.1 ENCOUNTER FOR SCREENING FOR RESPIRATORY TUBERCULOSISPrincipal Result Director Furniture: JAMSHID MEDRANO ([id number])Chief Medical Officer: NINA BIRMINGHAM (JGROVES)Outside Barrel Lathe Operator Chief Medical Officer: FADUMO 01/04/2021 04:29 pm EDT * PELVIC ULTRASOUND-COMPLETE Performed by: ContactPoint Component Value Range Date PELVIC ULTRASOUND-COMPLETE PELVIC ULTRASOUND-COMPLETESee NoteFINDINGS: Pelvic Ultrasound, Complete: Real-time color Doppler ultrasound evaluation of the pelvis was performed. Patient is status post surgical removal of the uterus and both ovaries. No discrete pelvic masses or fluid collections. Bladder volume is 185 cc. No intrinsic lesions or calcifications.CONCLUSION: Status post hysterectomy and bilateral ovary removal. No discrete abdominal masses or fluid collections.ELECTRONICALLY SIGNED BY KETTY CAVAZOS M.D. 12/03/2020 4:32:12 PM CDT.Reason for Study: R33.9 RETENTION OF URINE, UNSPECIFIEDPrincipal Result Director Furniture: KETTY CAVAZOS ([id number])Chief Medical Officer: KRISTINA GONZALEZ (CJALAFF)Outside Barrel Lathe Operator Chief Medical Officer: FADUMO 12/03/2020 05:32 pm EDT * HIP UNI W OR W/O PELVIS 2-3 V Performed by: [employer] Component Value Range Date HIP UNI W OR W/O PELVIS 2-3 V HIP UNI W OR W/O PELVIS 2-3 VHIP UNI W OR W/O PELVIS 2-3 V, RIGHTResults: The right hip joint is in alignment, but there is narrowing of the jointspace due to mild degenerative changes. There is mild degenerative spurringinvolving acetabular border and femoral head and neck junction. No fracture ordislocation is seen. Pubic rami are intact.Conclusion: Mild osteoarthritis of the right hip.Electronically signed by LAURA NG M.D. 10/28/2020 7:12:50 AM CDT.Reason for Study: M25.551 PAIN IN RIGHT HIPPrincipal Result Director Furniture: KAREN NG ([id number])Chief Medical Officer: KRISTIAN KWONG (RHONKALA)Outside Barrel Lathe Operator Chief Medical Officer: FADUMO 10/28/2020 08:13 am EDT * XRAY CHEST 2 VIEW Performed by: [employer] Component Value Range Date XRAY CHEST 2 VIEW XRAY CHEST 2 VIEWXRA Y CHEST 2 VIEWResults: The heart is normal in size and configuration. The mediastinum is normalwithout adenopathy. The lung quezada are clear without mass, infiltrate, congestion,or effusion. Bony structures are unremarkable without acute fracture or destructivelesions.Conclusion: No acute cardiopulmonary disease seen.Electronically signed by VITA MCCULLOUGH M.D. 09/24/2020 7:26:40 AM ELECTRONIC PUBLICATIONS SPECIALIST.Reason for Study: R05 COUGHPrincipal Result Director Furniture: VITA MCCULLOUGH ([id number])Chief Medical Officer: SONJA KUO (LCLARK)Outside Barrel Lathe Operator Chief Medical Officer: FADUMO 09/24/2020 08:27 am EST * WRIST AP AND LAT Performed by: [employer] Component Value Range Date WRIST AP AND LAT WRIST AP AND LATReas on for Study: M25.531 PAIN IN RIGHT WRISTPrincipal Result Director Furniture: LELAND JOY ([id number])Chief Medical Officer: MARIA LUISA NG (LWAGNER)Outside Barrel Lathe Operator Chief Medical Officer: FADUMO 05/22/2020 04:03 pm EDT * FOREARM AP AND LAT Performed by: [employer] Component Value Range Date FOREARM AP AND LAT FOREARM AP AND LATWR IST AP and LAT, RIGHTResults: The radiocarpal joint is anatomically aligned. However, there is slightjoint space narrowing and sclerosis. The first and second carpometacarpal joints arenarrowed and sclerotic due to mild degenerative changes. No fracture or dislocationis seen.Conclusion: Mild degenerative joint disease; otherwise, no fracture seen.Electronically signed by LELAND JOY M.D 05/22/2020 3:03:06 PM CDT. FOREARM AP and LAT, RIGHTResults: Right radius and ulna have normal ossification pattern. No fracture ordislocation is seen. The elbow and wrist joints are grossly intact.Conclusion: Normal right forearm.Electronically signed by LELAND JOY M.D 05/22/2020 3:03:06 PM CDT.Reason for Study: M79.631 PAIN IN RIGHT FOREARMPrincipal Result Director Furniture: LELAND JOY ([id number])Chief Medical Officer: MARIA LUISA NG (LWAGNER)Outside Barrel Lathe Operator Chief Medical Officer: FADUMO 05/22/2020 04:03 pm EDT * HUMERUS MINIMUM 2V Performed by: [employer] Component Value Range Date HUMERUS MINIMUM 2V HUMERUS MINIMUM 2VRe ason for Study: R52 PAIN, UNSPECIFIEDPrincipal Result Director Furniture: KAREN NG ([id number])Chief Medical Officer: DAHLIA CLINE (MJONES)Outside Barrel Lathe Operator Chief Medical Officer: FADUMO 04/04/2020 04:17 pm EDT * SHOULDER COMPLETE, MIN 2V Performed by: [employer] Component Value Range Date SHOULDER COMPLETE, MIN 2V SHOULDER COMPLETE, MIN 2VHUMERUS MINIMUM 2V, LEFTResults: The humerus has normal ossification pattern. No fracture or dislocation isseen. The shoulder joint is grossly intact.Conclusion: Normal left humerus.Electronically signed by LAURA NG M.D. 04/04/2020 3:17:03 PM CDT. SHOULDER COMPLETE, MIN 2V, LEFTResults: The glenohumeral joint is in alignment, but there is narrowing of the jointspace due to mild degenerative changes. Acromioclavicular and coracoclavicularjoints are also normal. 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 04/04/2020 3:17:03 PM CDT.Reason for Study: M25.512 PAIN IN LEFT SHOULDERPrincipal Result Director Furniture: KAREN NG ([id number])Chief Medical Officer: DAHLIA CLINE (DocTree)Outside Barrel Lathe Operator Chief Medical Officer: FADUMO 04/04/2020 04:17 pm EDT * TIBIA/FIBULA AP AND LAT Performed by: [employer] Component Value Range Date TIBIA/FIBULA AP AND LAT TIBIA/FIBULA AP AND LATReason for Study: M25.50 PAIN IN UNSPECIFIED JOINTPrincipal Result Director Furniture: MERYL STEVEN ([id number])Chief Medical Officer: DAHLIA CLINE (Cell>PointONES)Outside Barrel Lathe Operator Chief Medical Officer: FADUMO 11/16/2019 01:41 pm EDT * ANKLE COMPLETE, MIN 3V Performed by: [employer] Component Value Range Date ANKLE COMPLETE, MIN 3V ANKLE COMPLETE, M IN 3VTIBIA/FIBULA AP and LAT, LEFTResults: No acute fracture or dislocation. The osseous structures appear intact withtibia/fibula fixation hardware transfixing the prior fractures present. Soft tissuesare unremarkable. Proximal fibula shaft/neck fractures.Conclusion: No acute osseous abnormality. Status post tibia/fibula fixation.Electronically signed by MERYL STEVEN M.D. 11/16/2019 12:40:56 PM CDT. ANKLE COMPLETE, MIN 3V, RIGHTResults: No acute fracture or dislocation. The osseous structures appear intact withtibia fixation hardware transfixing the prior fracture present. Soft tissues areunremarkable.Conclusion: No acute osseous abnormality. Status post tibia fixation.Electronically signed by MERYL STEVEN M.D. 11/16/2019 12:40:56 PM CDT.Reason for Study: M25.571 PAIN IN RIGHT ANKLE AND JOINTS OF RIGHT FOOTPrincipal Result Director Furniture: MERYL STEVEN ([id number])Chief Medical Officer: DAHLIA CLINE (MJONES)Outside Barrel Lathe Operator Chief Medical Officer: FADUMO 11/16/2019 01:41 pm EDT Encounters Encounter Performer Performer Role Encounter Diagnoses Location Date Discharge - Discharged / Transferred to another [facility] 09/20/2019 01:00 am EST - 10/18/2019 06:35 pm EDT Discharge - [facility] 10/19/2019 02:30 am EDT - 07/05/2020 03:08 pm EST Discharge - Discharged to home or self care - Other - Private home/apt. with home health services [facility] 07/12/2020 06:00 pm EST - 02/13/2021 04:54 pm EDT Immunizations Vaccine Date Afluria (Influenza vaccine) Q2035 2019 01:00 am EST Pneumovax (in community/hospital) 2018 01:00 am EST SARS-COV-2 (COVID-19) 08/14/2020 01:00 p m EST SARS-COV-2 (COVID-19) 07/24/2020 11:00 a m EST Social History
--- OUTSIDE RECORDS SUMMARY | 2024-08-13 04:58 | XMS_ITS | Encounter Summary ---
Author Organization [facility] Healthcare Address [address] [place] [address] Care Team Providers Care Oil Sprayer Name Role Phone Jose Manuel Gruber MD Unavailable Hernando Velasquez MD Primary Care Provider [phone] Encounter Details Date Type Department Care Team (Late st Contact Info) Description 05/06/2022 Telephone [facility] Case Management [address] [place] [address] Glory Ewing RN Social History Tobacco Use Types Packs/Day Years [...] on file documented as of this encounter Miscellaneous Notes * Telephone Encounter - Glory Ewing RN - 05/06/2022 4:00 PM CDT Called pt to discuss possible direct admission tomorrow for colonoscopy prep. Pt stated she cancelled the procedure with Dr. Garcia's office and will not be coming to the hospital tomorrow. documented in this encounter Plan of Treatment Not on file documented as of this encounter Visit Diagnoses Not on filedocumented in this encounter Care Teams Oil Sprayer Relationship Specialty Start Date End Date Hernando Velasquez MD [address] [place] [address] PCP - General Internal Medicine 01/07/22 Jose Manuel Gruber MD Fellow Orthopedic Surgery 07/06/19 documented as of this encounter
--- OUTSIDE RECORDS SUMMARY | 2024-08-13 04:58 | XMS_ITS | Encounter Summary ---
Author Organization [facility] Address [address] [place] [address] Care Team Providers Care Narcotics And/Or Vice Detective Name Role Phone Jose Manuel Gruber MD Unavailable [phone] Hernando Velasquez MD Primary Care Provider [phone] Reason for Visit * Reason Onset Date Comments Medical Question/Miscellaneous 03/10/2022 Encounter Details Date Type Department Care Team (Late st Contact Info) Description 03/10/2022 Telephone [facility] Pulmonology [address] [place] [address] Cindy Ahn MA Medical Question/Miscellaneous Social History Tobacco Use Types Packs/Day Years [...] encounter Miscellaneous Notes * Telephone Encounter - Cindy Ahn MA - 03/10/2022 4:04 PM CDT Entered order. * Telephone Encounter - Dean Stephenson MD - 03/10/2022 3:49 PM CDT Please reorder the ABG to be performed on room air * Telephone Encounter - Cindy Ahn MA - 03/10/2022 3:10 PM CDT Patient left a voicemail stating that her arterial blood gas test was done incorrectly, she states that she was supposed to get it done without o2 but it was performed with o2. The patient is wantingto know if she needs to be repeat testing. Please advise. documented in this encounter Plan of Treatment Not on file documented as of this encounter Visit Diagnoses Diagnosis Chronic respiratory failure, unspecified whether with hypoxia or hypercapnia (HCC)- Primary documented in this encounter Care Teams Narcotics And/Or Vice Detective Relationship Specialty Start Date End Date Hernando Velasquez MD [address] [place] [address] PCP - General Internal Medicine 01/07/22 Jose Manuel Gruber MD Fellow Orthopedic Surgery 07/06/19 documented as of this encounter
--- OUTSIDE RECORDS SUMMARY | 2024-08-13 04:58 | XMS_ITS | Encounter Summary ---
Author Organization [facility] Healthcare Address [address] [place] [address] Care Team Providers Care Tree Driller Name Role Phone Jose Manuel Gruber MD Unavailable [phone] Hernando Velasquez MD Primary Care Provider [phone] Reason for Referral * Diagnostic Imaging (Routine) - Closed Specialty Diagnoses / Procedures Referred By Kesha diggs Referred To Contact Diagnoses Mild intermittent asthma without complication Procedures XR Chest Pa Lateral 2 Views Dean Stephenson MD [facility] [address] [place] [address] [place] [address] Phone: tel: fax: [address] [phone] Referral ID Status Reason Start Date Expiration Date Visits Re quested Visits Authorized [id number] Closed 01/07/2022 02/06/2023 1 1 Reason for Visit * Diagnostic Imaging (Routine) - Closed Specialty Diagnoses / Procedures Referred By Kesha diggs Referred To Contact Diagnoses Mild intermittent asthma without complication Procedures XR Chest Pa Lateral 2 Views Dean Stephenson MD [address] [facility] [address] [place] [address] [place] [address] Phone: tel: fax: [address] [phone] Referral ID Status Reason Start Date Expiration Date Visits Re quested Visits Authorized [id number] Closed 01/07/2022 02/06/2023 1 1 Encounter Details Date Type Department Care Team (Latest Contact Info) Description 01/07/2022 2:00 PM CDT - 01/07/2022 11:59 PM CDT Hospital Encounter [facility] [address] [place] [address] Mild intermittent asthma without complication Discharge Disposition: Discharge to home or self [...] of Discharge Aerochamber Plus Flow-Vu spacer 0 amLODIPine (NORVASC) 10 mg tabletIndications:h ypertension Take 10 mg by mouth daily. Indications: high blood pressure atorvastatin (LIPITOR) 10 mg tablet Take 1 tablet (10 mg total) by mouth nightly 1 tablet 9 baclofen (LIORESAL) 5 mg tablet Take 0.5 tablets (2.5 mg total) by mouth 3 (three) times a day with meals 1 tablet 9 busPIRone (BUSPAR) 5 mg tablet 0 cholecalciferol (VITAMIN D-3) 400 unit capsuleIndications: Vitamin D deficiency Take 400 Units by mouth daily. Indications: Vitamin D deficiency docusate sodium (COLACE) 100 mg capsuleIndications: constipation [...] for nausea or vomiting 20 tablet 0 oxyCODONE-acetamino phen (PERCOCET) 5-325 mg per tablet [...] mouth daily. Indications: deficiency of vitamin E albuterol HFA (PROVENTIL HFA,VENTOLIN HFA,PROAIR HFA) 90 mcg/actuation inhalerIndications: Acute Asthma Attack Inhale 2 puffs every 4 (four) hours as needed for shortness of breath. Indications: Asthma Attack 08/27/19 23 albuterol HFA (PROVENTIL HFA,VENTOLIN HFA,PROAIR HFA) 90 mcg/actuation inhalerIndications: Mild intermittent asthma without complication Inhale 2 puffs every 6 (six) hours as needed for wheezing Fill per patient's formulary 1 each 3 2 04/15/20 22 amoxicillin-clavula kristian (AUGMENTIN) 875-125 mg per tablet 1 04/15/20 22 ascorbic acid (VITAMIN C) 500 mg tablet,chewable Take 1 tablet by mouth 2 (two) times a day 04/15/20 22 clindamycin (CLEOCIN) 150 mg capsule 0 04/15/20 22 clindamycin (CLEOCIN) 300 mg capsule 0 04/15/20 22 doxycycline hyclate 100 mg capsule 0 04/15/20 22 ferrous sulfate 325 mg (65 mg of elemental iron) tablet Take 325 mg by mouth daily 04/15/20 22 gabapentin (NEURONTIN) 400 mg capsule Take 1 capsule (400 mg total) by mouth every 8 (eight) hours 1 capsule 9 04/15/20 22 oxyCODONE ER (OxyCONTIN) 10 mg 12 hr abuse-deterrent tablet Take 1 tablet (10 mg total) by mouth 2 (two) times a day 60 tablet 0 04/15/20 22 senna (SENOKOT) 8.6 mg tablet Take 1 tablet by mouth daily 04/15/20 22 zolpidem (AMBIEN) 10 mg tablet 04/15/20 22 documented as of this encounter Discharge Disposition Disposition Code Departure Means Destination Discharge to home or self care documented in this encounter Plan of Treatment Not on file documented as of this encounter Procedures Procedure Name Priority Date/Time Associated Diagnosis Comments XR CHEST PA LATERAL 2 VIEWS Schedule Routine, Read Routine (OP Routine) 01/07/2022 2:36 PM CDT Mild intermittent asthma without complication documented in this encounter Results * XR Chest Pa Lateral 2 Views (01/07/2022 2:36 PM CDT) Anatomical Region Laterality Modality Body, Chest N/A Computed Radiogr aphy 01/08/2022 8:51 AM CDT Narrative 01/08/2022 8:53 AM CDT EXAM DESCRIPTION: ?? XR CHEST PA LATERAL 2 VIEWS REASON FOR STUDY: ?? asthma ?? Pt states no chest complaints/ hx of asthma without complications/ follow up exam ?? TECHNIQUE: ?? Frontal ??and lateral radiographic views of the chest acquired. COMPARISON: ?? Chest radiograph dated 07/05/2020, 06/30/2019 and 06/29/2019. ?? Chest CT dated 06/28/2019 FINDINGS: LUNGS/PLEURA: ?? Lung volumes are small with bronchovascular crowding. ??Increased density along the lower chest on both sides likely reflect overlapping soft tissues. ??No definite focal pneumonic consolidation, pleural effusion or pneumothorax. HEART/MEDIASTINUM: ?? Cardiomediastinal silhouette is likely accentuated by small lung volumes and imaging technique. ??Calcified plaque at the aortic knob. HARDWARE/LINES/TUBES: ?? None. BONES: ?? Thoracolumbar degenerative changes. OTHER: ?? Suboptimal assessment due to imaging technique. IMPRESSION: ?? Lung volumes are small with bronchovascular crowding. ??No definite focal pneumonic consolidation. THIS IS AN ELECTRONICALLY VERIFIED FINAL REPORT 01/08/2022 8:53 AM - Electronically signed by ??Gerson VILLA D: ??01/08/2022 8:53 AM T: Report ID: [id number] Reading Location: ??[id number] Procedure Note Gerson Terrell DO - 01/08/2022 EXAM DESCRIPTION: XR CHEST PA LATERAL 2 VIEWS REASON FOR STUDY: asthma Pt states no chest complaints/ hx of asthma without complications/ followup exam TECHNIQUE: Frontal and lateral radiographic views of the chestacquired. COMPARISON: Chest radiograph dated 07/05/2020, 06/30/2019 and06/29/2019. Chest CT dated 06/28/2019 FINDINGS: LUNGS/PLEURA: Lung volumes are small with bronchovascular crowding. Increased density along the lower chest on both sides likely reflect overlapping soft tissues. No definite focal pneumonicconsolidation, pleural effusion or pneumothorax. HEART/MEDIASTINUM: Cardiomediastinal silhouette is likely accentuated by small lung volumes and imaging technique. Calcified plaque at the aortic knob. HARDWARE/LINES/TUBES: None. BONES: Thoracolumbar degenerative changes. OTHER: Suboptimal assessment due to imaging technique. IMPRESSION: Lung volumes are small with bronchovascular crowding. No definite focal pneumonic consolidation. THIS IS AN ELECTRONICALLY VERIFIED FINAL REPORT 01/08/2022 8:53 AM - Electronically signed by Gerson VILLA T: Report ID: [id number] Reading Location: [id number] us Dean Stephenson MD IMG XR PROCEDURES Final R esult documented in this encounter Visit Diagnoses Diagnosis Mild intermittent asthma without complication documented in this encounter Care Teams Tree Driller Relationship Specialty Start Date End Date Hernando Velasquez MD [address] [place] [address] PCP - General Internal Medicine 01/07/22 Jose Manuel Gruber MD Fellow Orthopedic Surgery 07/06/19 documented as of this encounter
--- OUTSIDE RECORDS SUMMARY | 2024-08-13 04:58 | XMS_ITS ---
Author Organization [facility] [place] - [facility] Address Unknown Allergies, Adverse Reactions, Alerts Substance Reaction Status Noted Date Resolved Date Sulfa Antibiotics active 02/27/2021 LATEX active 02/27/2021 Iodine I 131 Tositumomab active 02/27/2021 Fish active 02/27/2021 Diazepam active 02/27/2021 Barbiturates active 02/27/2021 Problems Problem Status Start Date End Date ENCEPHALOPATHY, UNSPECIFIED (Primary) (G93.40 - ICD-10 -CM) ACTIVE 02/27/2021 ACUTE AND CHRONIC RESPIRATOR Y FAILURE, UNSPECIFIED WHETHER WITH HYPOXIA OR HYPERCAPNIA (J96.20 - ICD-10-CM) ACTIVE 02/27/2021 GASTROPARESIS (K31.84 - ICD-10-CM) ACTIVE 2020 PNEUMONIA, UNSPECIFIED ORGANISM (J18.9 - ICD-10-CM) AC TIVE 02/27/2021 DISORDER OF KIDNEY AND URETE R, UNSPECIFIED (N28.9 - ICD-10-CM) ACTIVE 02/27/2021 OTHER ASTHMA (J45.998 - ICD-10-CM) ACTIVE 2020 DEPENDENCE ON SUPPLEMENTAL OXYGEN (Z99.81 - ICD-10-CM) ACTIVE 02/27/2021 ANEMIA, UNSPECIFIED (D64.9 - ICD-10-CM) ACTIVE 0 02/27/2021 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 - ICD-10-CM) ACTIVE 02/27/2021 HYPO-OSMOLALITY AND HYPONATREMIA (E87.1 - ICD-10-CM) A CTIVE 02/27/2021 ALTERED MENTAL STATUS, UNSPECIFIED (R41.82 - ICD-10-CM ) ACTIVE 02/27/2021 GASTRO-ESOPHAGEAL REFLUX DIS EASE WITHOUT ESOPHAGITIS (K21.9 - ICD-10-CM) ACTIVE 02/27/2021 ESSENTIAL (PRIMARY) HYPERTENSION (I10 - ICD-10-CM) ACT CHRISTINA 02/27/2021 HYPERLIPIDEMIA, UNSPECIFIED (E78.5 - ICD-10-CM) ACTIVE 02/27/2021 MORBID (SEVERE) OBESITY DUE TO EXCESS CALORIES (E66.01 - ICD-10-CM) ACTIVE 02/27/2021 DYSPHAGIA, OROPHARYNGEAL PHASE (R13.12 - ICD-10-CM) AC TIVE 02/27/2021 OBSTRUCTIVE SLEEP APNEA (MARILOU LT) (PEDIATRIC) (G47.33 - ICD-10-CM) ACTIVE 02/27/2021 MAJOR DEPRESSIVE DISORDER, R ECURRENT, UNSPECIFIED (F33.9 - ICD-10-CM) ACTIVE 02/27/2021 ANXIETY DISORDER, UNSPECIFIED (F41.9 - ICD-10-CM) ACTI VE 02/27/2021 BIPOLAR DISORDER, UNSPECIFIED (F31.9 - ICD-10-CM) ACTI VE 02/27/2021 PERSONAL HISTORY OF OTHER DI SEASES OF THE NERVOUS SYSTEM AND SENSE ORGANS (Z86.69 - ICD-10-CM) ACTIVE 02/27/2021 Encounters Encounter Performer Performer Role Encounter Diagnoses Location Date Discharge - Discharged to home or self care - HOME. - Private home/apt. with no home health services [facility] 02/27/2021 08:40 pm EDT - 06/02/2021 11:56 am EST Immunizations Vaccine Date Influenza 05/12/2021 12:10 pm EDT TB 2 Step Mantoux Skin Test 03/08/2021 1 1:30 pm EDT TB 2 Step Mantoux Skin Test 02/28/2021 1 2:00 am EDT Prevnar 13 SARS-COV-2 (COVID-19) 08/14/2020 01:00 a m EST SARS-COV-2 (COVID-19) 07/24/2020 01:00 a m EST SARS-COV-2 (COVID-19 Booster) 05/29/2021 01:00 am EDT Social History
--- OUTSIDE RECORDS SUMMARY | 2024-08-13 04:58 | XMS_ITS | Encounter Summary ---
Author Organization [facility] Healthcare Address [address] [place] [address] Care Team Providers Care Fringe Knotter Name Role Phone Jose Manuel Gruber MD Unavailable Hernando Velasquez MD Primary Care Provider [phone] Reason for Visit * Reason Comments Ankle Pain Encounter Details Date Type Department Care Team (Late st Contact Info) Description 01/16/2022 7:05 PM CDT - 01/17/2022 5:34 AM CDT Emergency [address] [address] Deniz Polk, [address] [address] Sprain of right ankle, unspecified ligament, initial encounter (Primary Dx); Sprain of right knee, unspecified ligament, initial encounter Discharge Disposition: Discharge to home or self [...] Sign Reading Time Taken Comments Blood Pressure 133/90 01/17/2022 5:00 AM CDT Pulse 83 01/17/2022 5:00 AM CDT Temperature 36.5 ??C (97.7 ??F) 01/16/2022 5:20 PM CD T Respiratory Rate 18 01/17/2022 4:00 AM CDT Oxygen Saturation 98% 01/17/2022 5:00 AM CDT Inhaled Oxygen Concentration - - Weight 89.4 kg (197 lb) 01/16/2022 5:20 PM CDT Height - - Body Mass Index 36.03 01/07/2022 12:59 PM CDT documented in this encounter Discharge Instructions * Attachments The following attachments cannot be sent through Care Everywhere. * Ankle Sprain (AfterCare(R) Instructions(ER/ED)) (Slovenian) documented in this encounter Medications at Time of Discharge [...] 04/15/20 22 zolpidem (AMBIEN) 10 mg tablet 0304/15/20 documented as of this encounter Discharge Disposition Disposition Code Departure Means Destination Discharge to home or self care documented in this encounter ED Notes * Marcia Polk RN - 01/17/2022 1:08 AM CDT Patients oxygen dropped to 86% patient states she wears 4L/min at home. Patient was placed on 4L Marcia Polk RN 01/17/22 0109 * Belia Martinez EMT - 01/16/2022 11:24 PM CDT Pt had knee immobilizer placed on right knee and boot placed on right foot/ankle. EMT Belia and FLORENCIO Delvalle tried to stand patient up on right leg to see if she was stable enough to be sent home. Pt was able to stand on right leg but needed heavy assistance and was unable to stand on right leg for more than a few seconds at most. Pt wished to stay over night to make sure that she can rest it enough to stand on it without assistance. Nurse Delacruz was told as well as Dr. Polk. Belia Martinez EMT 01/16/22 1557 * Claire Devries RN - 01/16/2022 10:24 PM CDT Attempt to assist patient to standing position, patient unable to bear weight Claire Devries RN 01/16/22 4034 * Deniz Polk DO - 01/16/2022 8:19 PM CDT HPI Chief Complaint Patient presents with ??? Ankle Pain 71-year-old female who comes in with right ankle and right knee pain after having a mechanical fallwith her nurse aide at her home. She said she was getting out of the shower and she fell backwards and her leg was wrapped underneath her body and so she came in for evaluation. She does not have any deformity or swelling but most of her pain is in her right ankle. She did not sustain any other injury she has an [id number] amputation on the left. Patient History: Patient Active Problem List Diagnosis Date Noted ??? Mild intermittent asthma 01/07/2022 ??? SANTI (obstructive sleep apnea) 01/07/2022 ??? Status post above-knee amputation of left lower extremity ([facility]) ([facility]) 08/02/2020 ??? COVID-19 07/05/2020 ??? Left lower extremity infection 07/05/2020 ??? Leg skin lesion, left 07/05/2020 ??? Abnormal x-ray of extremity 07/20/2019 ??? Acute exacerbation of chronic low back pain 07/20/2019 ??? Biliary colic 07/20/2019 ??? Chronic lumbosacral pain 07/20/2019 ??? Chronic respiratory failure ([facility]) 07/20/2019 ??? Closed displaced bimalleolar fracture of right lower leg 07/20/2019 ??? Deep venous insufficiency 07/20/2019 ??? Dyslipidemia, goal LDL below 100 07/20/2019 ??? Full code status 07/20/2019 ??? Gastroesophageal reflux disease with stricture 07/20/2019 ??? Herpes simplex of female genitalia 07/20/2019 ??? History of hyperemesis gravidarum 07/20/2019 ??? Insomnia 07/20/2019 ??? Irritable bowel syndrome with constipation and diarrhea 07/20/2019 ??? Menopause present 07/20/2019 ??? Recurrent falls while walking 07/20/2019 ??? 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 ??? Well child examination 07/20/2019 ??? Bipolar I disorder with anxious distress (CMS/HCC) ([facility]) 06/28/2019 ??? Intractable seizure disorder (CMS/HCC) ([facility]) 06/28/2019 ??? Moderate essential hypertension 06/28/2019 ??? Syncope due to sick sinus syndrome (CMS/HCC) ([facility]) 06/28/2019 ??? Open displaced comminuted fracture of shaft of left tibia, type IIIA, IIIB, or IIIC 06/28/2019 ??? Hyponatremia 11/23/2017 ??? Traumatic rhabdomyolysis (CMS/HCC) ([facility]) 11/23/2017 Past Medical History: Diagnosis Date ??? Asthma ??? COPD (chronic obstructive pulmonary disease) (CMS/HCC) ([facility]) ??? Heart murmur ??? Hyperlipidemia ??? Hypertension ??? Shortness of breath ??? Sleep apnea Past Surgical History: Procedure Laterality Date ??? ACHILLES TENDON LENGTHENING Left 09/1991 ??? ANKLE SURGERY Left 2015 ??? APPENDECTOMY 1973 ??? BILATERAL SALPINGOOPHORECTOMY 12/1998 ??? BREAST BIOPSY Right 2000 and 2006 ??? DILATION AND CURETTAGE OF UTERUS 10/1986 ??? HYSTERECTOMY 05/1995 ??? NASAL SEPTUM SURGERY 1973 ??? ORIF TIBIA FRACTURE Left 06/28/2019 ??? REPLACEMENT TOTAL KNEE Left multiple left knee surgeries, including 3 knee replacements ??? SHOULDER SURGERY Right 08/2009 ??? TOE FUSION Left 08/1994 Family History Problem Relation Age of Onset ??? Heart disease Mother ??? Diabetes Mother ??? Emphysema Father ??? Diabetes Father ??? Diabetes Brother Social History Tobacco Use ??? Smoking status: Never Smoker ??? Smokeless tobacco: Never Used ??? Tobacco comment: Patient does not smoke Substance Use Topics ??? Alcohol use: Not Currently ??? Drug use: Never Social History Social History Narrative ??? Not on file Review of Systems Review of Systems All other systems reviewed and are negative. Physical Exam ED Triage Vitals [01/16/22 1720] Temp Pulse Resp BP SpO2 36.5 ??C (97.7 ??F) 71 17 (!) 194/80 94 % Temp src Heart Rate Source Patient Position BP Location FiO2 (%) Oral Pulse Oximetry Sitting Right arm -- Height Height Method Weight Weight Method -- -- 89.4 kg (197 lb) Stated Physical Exam Vitals and nursing note reviewed. Constitutional: General: She is not in acute distress. Appearance: She is well-developed. HENT: Head: Normocephalic and atraumatic. Eyes: Conjunctiva/sclera: Conjunctivae normal. Cardiovascular: Rate and Rhythm: Normal rate and regular rhythm. Heart sounds: Normal heart sounds. No murmur heard. Pulmonary: Effort: Pulmonary effort is normal. No respiratory distress. Breath sounds: Normal breath sounds. Abdominal: General: Bowel sounds are normal. There is no distension. Palpations: Abdomen is soft. Tenderness: There is no abdominal tenderness. There is no guarding. Musculoskeletal: Cervical back: Neck supple. Comments: Right ankle tenderness and right knee joint tenderness and she is unable to bear weight on the right leg and she has an AKA a of her left lower extremity Skin: General: Skin is warm and dry. Neurological: Mental Status: She is alert and oriented to person, place, and time. [facility] ED Course as of 01/16/222207 Time: 01/17 1912 Comment: Dr. Sanchez came and talked and evaluated the patient. He suggested putting patient in a surgical shoe and leaving Prabhakar wrap on the knee. We will get the patient up and try to see if she canbear weight and able to transfer to a chair. By: Elsy Christopher PA Time: 01/16 1922 Comment: Patient unable to successfully ambulate or bear weight on leg By: Elsy Christopher PA Time: 01/16 2206 Comment: We are obtaining a walking boot to assess whether not she is able to bear weight. She is having hard time bearing weight with the postop shoe. She does have an AKA on the left and so she needs to be able to transfer her weight from the wheelchair to the bathroom while she is at home patient I have discussed this and she says that there is really no but he that can help her at home and vijaya will await the walking boot and assess if she is able to transfer herself. By: Deniz Polk DO Final diagnoses: None Deniz Polk DO 01/16/222020 * Florence Solitario RN - 01/16/2022 5:39 PM CDT Arrives via ems after a mechanical fall at home. Reports my aid was drying me off after my shower when I fell backwards and my ankle bent back underneath me . Reports right knee pain Hx of right ankle surgery. 2+ edema noted, pulse present and marked. Rates pain 10/10. AAOX4. Presents to triage in wheelchair documented in this encounter Miscellaneous Notes * ED Triage Provider Note - Jinny Zavaleta PA - 01/16/2022 5:39 PM CDT Celestina Ewing is 71 y.o. female here with concern for right ankle and knee pain. Was transferrinfrom wheelchair and fell. Has a left leg amputation. Triage exam: GENERAL: Well developed, well nourished. No apparent distress. VITAL SIGNS: Patient Vital Signs for the past 24 hrs: BP Temp Temp src Pulse Resp SpO2 Weight 01/16/22 1720 (!) 194/80 36.5 ??C (97.7 ??F) Oral 71 17 94 % 89.4 kg (197 lb) RESPIRATORY: No respiratory distress or accessory muscle use. Speaks in full sentences without difficulty. NEUROLOGIC: Awake, alert, and oriented. Speech is clear and fluent. Ambulatory without assistance. No facial droop. RLE: DP pulse detected with doppler. documented in this encounter Plan of Treatment Not on file documented as of this encounter Procedures Procedure Name Priority Date/Time Associated Diagnosis Comments XR FOOT RIGHT 3 OR MORE VIEWS ED 01/16/2022 6:29 PM CDT XR ANKLE RIGHT 3 OR MORE VIEWS ED 01/16/2022 6:29 PM CDT XR KNEE RIGHT 1 OR 2 VIEWS ED 01/16/2022 6:29 PM CDT documented in this encounter Results * XR Knee Right 1 or 2 Views (01/16/2022 6:29 PM CDT) Anatomical Region Laterality Modality Lower Extremities, Knee Right Computed Radiography 01/16/2022 6:35 PM CDT Narrative 01/16/2022 6:36 PM CDT EXAM DESCRIPTION: ?XR KNEE RIGHT 1 OR 2 VIEWS REASON FOR STUDY: ?? pain, fall ?? Fall today, right ankle, foot and knee pain ?? TECHNIQUE: ?? 2 ??radiographic views acquired of the right knee. COMPARISON: ?? Head FINDINGS: BONES/JOINTS: ?? No acute fracture or dislocation. ?Moderate osteoarthritic changes. SOFT TISSUES: ?? No large joint effusion or soft tissue abnormality. OTHER: ?? No other significant finding. IMPRESSION: ?? Moderate osteoarthritis of the knee. ??No acute abnormality is identified. THIS IS AN ELECTRONICALLY VERIFIED FINAL REPORT 01/16/2022 6:36 PM - Electronically signed by ??Gilberto Villalpando D.O. D: ??01/16/2022 6:36 PM T: Report ID: [id number] Reading Location: ??[id number] Procedure Note Gilberto Villalpando DO - 01/16/2022 EXAM DESCRIPTION: XR KNEE RIGHT 1 OR 2 VIEWS REASON FOR STUDY: pain, fall Fall today, right ankle, foot and knee pain TECHNIQUE: 2 radiographic views acquired of the right knee. COMPARISON: Head FINDINGS: BONES/JOINTS: No acute fracture or dislocation. Moderate osteoarthritic changes. SOFT TISSUES: No large joint effusion or soft tissue abnormality. OTHER: No other significant finding. IMPRESSION: Moderate osteoarthritis of the knee. No acute abnormality is identified. THIS IS AN ELECTRONICALLY VERIFIED FINAL REPORT 01/16/2022 6:36 PM - Electronically signed by Gilberto Villalpando D.O. Gilberto Villalpando D.O. T: Report ID: [id number] Reading Location: [id number] [facility] XR PROCEDURES Final Result * XR Foot Right 3 or More Views (01/16/2022 6:29 PM CDT) Anatomical Region Laterality Modality Lower Extremities, Foot Right Computed Radiography 01/16/2022 6:36 PM CDT Narrative 01/16/2022 6:38 PM CDT EXAM DESCRIPTION: ?XR FOOT RIGHT 3 OR MORE VIEWS REASON FOR STUDY: ?? pain, fall ?? Fall today, right ankle, foot and knee pain ?? TECHNIQUE: ?? AP, lateral and oblique ??radiographic views acquired of the right foot. COMPARISON: ?? None. FINDINGS: BONES/JOINTS: ?? No acute fracture or dislocation is identified. ? Mild osteoarthritis of the 1st MTP joint with hallux valgus. SOFT TISSUES: ?? Unremarkable. OTHER: ?? ORIF of the distal tibia to include the medial malleolus with plate and screws. IMPRESSION: ?? ORIF of the distal tibia. ??No acute osseous abnormality. THIS IS AN ELECTRONICALLY VERIFIED FINAL REPORT 01/16/2022 6:38 PM - Electronically signed by ??Gilberto Villalpando D.O. Gilberto Villalpando D.O. D: ??01/16/2022 6:38 PM T: Report ID: [id number] Reading Location: ??[id number] Procedure Note Gilberto Villalpando DO - 01/16/2022 EXAM DESCRIPTION: XR FOOT RIGHT 3 OR MORE VIEWS REASON FOR STUDY: pain, fall Fall today, right ankle, foot and knee pain TECHNIQUE: AP, lateral and oblique radiographic views acquired of theright foot. COMPARISON: None. FINDINGS: BONES/JOINTS: No acute fracture or dislocation is identified. Mild osteoarthritis of the 1st MTP joint with hallux valgus. SOFT TISSUES: Unremarkable. OTHER: ORIF of the distal tibia to include the medial malleolus withplate and screws. IMPRESSION: ORIF of the distal tibia. No acute osseous abnormality. THIS IS AN ELECTRONICALLY VERIFIED FINAL REPORT 01/16/2022 6:38 PM - Electronically signed by Gilberto Villalpando D.O. Gilberto Villalpando D.O. T: Report ID: [id number] Reading Location: [id number] [facility] XR PROCEDURES Final Result * XR Ankle Right 3 or More Views (01/16/2022 6:29 PM CDT) Anatomical Region Laterality Modality Lower Extremities, Ankle Right Compute d Radiography 01/16/2022 6:38 PM CDT Narrative 01/16/2022 6:41 PM CDT EXAM DESCRIPTION: ?? XR ANKLE RIGHT 3 OR MORE VIEWS REASON FOR STUDY: ?? pain, fall ?? Fall today, right ankle, foot and knee pain ?? TECHNIQUE: ?? AP, lateral, and oblique ??radiographic views acquired of the right ankle. COMPARISON: ?? 05/07/2020. FINDINGS: BONES/JOINTS: ?? ORIF of the distal tibia to include the medial malleolus, stable. ??Old fracture or sequela of soft tissue injury versus accessory ossicle at the tip of the lateral malleolus. ?Mortise is well seated. SOFT TISSUES: ?? Perhaps small joint effusion with mild soft tissue swelling. OTHER: ?? No other significant finding. IMPRESSION: ?? ORIF of the distal tibia. ??No acute osseous abnormality. THIS IS AN ELECTRONICALLY VERIFIED FINAL REPORT 01/16/2022 6:41 PM - Electronically signed by ??Gilberto Villalpando D.O. Gilberto Villalpando D.O. D: ??01/16/2022 6:41 PM T: Report ID: [id number] Reading Location: ??[id number] Procedure Note Gilberto Villalpando, DO - 01/16/2022 EXAM DESCRIPTION: XR ANKLE RIGHT 3 OR MORE VIEWS REASON FOR STUDY: pain, fall Fall today, right ankle, foot and knee pain TECHNIQUE: AP, lateral, and oblique radiographic views acquired of the right ankle. COMPARISON: 05/07/2020. FINDINGS: BONES/JOINTS: ORIF of the distal tibia to include the medial malleolus, stable. Old fracture or sequela of soft tissue injury versus accessory ossicle at the tip of the lateral malleolus. Mortise is well seated. SOFT TISSUES: Perhaps small joint effusion with mild soft tissueswelling. OTHER: No other significant finding. IMPRESSION: ORIF of the distal tibia. No acute osseous abnormality. THIS IS AN ELECTRONICALLY VERIFIED FINAL REPORT 01/16/2022 6:41 PM - Electronically signed by Gilberto Villalpando D.O. T: Report ID: [id number] Reading Location: [place] [address] [facility] XR PROCEDURES Final Result documented in this encounter Visit Diagnoses Diagnosis Sprain of right ankle, unspecified ligament, initial encounter- Primary Sprain of right knee, unspecified ligament, initial encounter documented in this encounter Administered Medications Inactive Administered Medications - up to 3 most recent administrations Medication Order MAR Action Action Date Dose Rate Site HYDROmorphone (DILAUDID) injection 1 mg 1 mg, intramuscular, Administer over 2 Minutes, Once, On Wed01/16/22 at 2218, For 1 dose Given 01/16/2022 10:44 PM CDT 1 mg Left Deltoid HYDROmorphone (DILAUDID) injection 1 mg 1 mg, intramuscular, Administer over 2 Minutes, Once, On Wed01/17/22 at 0047, For 1 dose Given 01/17/2022 1:58 AM CDT 1 mg R ight Deltoid metoprolol tartrate (LOPRESSOR) immediate release tablet 25 mg 25 mg, oral, Once, On Wed01/16/22 at 2212, For 1 dose Given 01/16/2022 10:43 PM CDT 25 mg oxyCODONE (ROXICODONE) tablet 5 mg 5 mg, oral, Once, On Wed01/16/22 at 1747, For 1 dose, Indications: PainIndications:Pain Given 01/16/2022 5:50 PM CDT 5 mg oxyCODONE ER (OxyCONTIN) extended release tablet 10 mg 10 mg, oral, Once, On Wed01/16/22 at 2145, For 1 dose, Do not crush, chew, cut, dissolve, open or otherwise manipulate tablet/capsule. Given 01/16/2022 9:33 PM CDT 10 mg documented in this encounter Active and Recently Administered Medications Times are shown in CDT. Scheduled Medication Order 01/15/2022 01/16/2022 01/17/2022 HYDROmorphone (DILAUDID) injection 1 mg (COMPLETED) 1 mg, intramuscular, Administer over 2 Minutes, Once, On Wed01/16/22 at 2218, For 1 dose 2244 (Given - Provider: Marcia Polk, RN) HYDROmorphone (DILAUDID) injection 1 mg (COMPLETED) 1 mg, intramuscular, Administer over 2 Minutes, Once, On Wed01/17/22 at 0047, For 1 dose 0158 (Given - Provid er: Marcia Polk, RN) metoprolol tartrate (LOPRESSOR) immediate release tablet 25 mg (COMPLETED) 25 mg, oral, Once, On Wed01/16/22 at 2212, For 1 dose 2243 (Given - Provider: Marcia Polk, RN) oxyCODONE (ROXICODONE) tablet 5 mg (COMPLETED) 5 mg, oral, Once, On Wed01/16/22 at 1747, For 1 dose, Indications: Pain 1750 (Given - Provider: Florence Solitario RN) oxyCODONE ER (OxyCONTIN) extended release tablet 10 mg (COMPLETED) 10 mg, oral, Once, On Wed01/16/22 at 2145, For 1 dose, Do not crush, chew, cut, dissolve, open or otherwise manipulate tablet/capsule. 2133 (Given - Provider: Claire Devries, DARCI) documented in this encounter Care Teams Fringe Knotter Relationship Specialty Start Date End Date Hernando Velasquez MD [address] [place] [address] PCP - General Internal Medicine 01/07/22 Jose Manuel Gruber MD Fellow Orthopedic Surgery 07/06/19 documented as of this encounter
--- OUTSIDE RECORDS SUMMARY | 2024-08-13 04:58 | XMS_ITS | Encounter Summary ---
Author Organization [facility] Healthcare Address [address] [place] [address] Care Team Providers Care Bag Worker Name Role Phone Jose Manuel Gruber MD Unavailable [phone] Hernando Velasquez MD Primary Care Provider [phone] Encounter Details Date Type Department Care Team (Late st Contact Info) Description 05/04/2022 Orders Only Gastroententerology Ariela Garcia MD [address] [place] [id number] Social History Tobacco Use Types Packs/Day Years [...] on filedocumented in this encounter Care Teams Bag Worker Relationship Specialty Start Date End Date Hernando Velasquez MD [address] [place] [address] PCP - General Internal Medicine 01/07/22 Jose Manuel Gruber MD Fellow Orthopedic Surgery 07/06/19 documented as of this encounter
--- OUTSIDE RECORDS SUMMARY | 2024-08-13 04:58 | XMS_ITS | Continuity of Care Document ---
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 Name Role Phone Kay Whittaker Unavailable Unavailable Allergies, Adverse Reactions, Alerts Substance Reaction Status Criticality fish oil Other Active No Information Sulfa (Sulfonamide Antibiotics) Other Active No Information Barbiturates Other Active No Information diazepam Other Active No Information iodine Other Active No Information Medications Medication Instructions Dosage Effective Dates (start - stop) Status Comments Advair HFA 230 mcg-21 mcg/actuation aerosol inhaler inhale 2 puff by inhalation route 2 times every day in the morning and evening 2.00 puff - Active replacing symbicort acyclovir 400 mg tablet take 1 tablet by oral route every 12 hours 400 MG - Active replacing famciclovir since insurance will not cover it. ok to put on hold until patient needs refill METOPROLOL TARTRATE 100 MG TAB TAKE 1 TABLET BY MOUTH TWICE A DAY WITH FOOD - Active AMLODIPINE BESYLATE 10 MG TAB TAKE 1 TABLET BY MOUTH EVERY DAY - Active BACLOFEN 10 MG TABLET TAKE 1 TABLET BY MOUTH THREE TIMES A DAY - Active SPIRONOLACTONE 25 MG TABLET TAKE 1 TABLET BY MOUTH EVERY DAY - Active lorazepam 1 mg tablet take 1 tablet by oral route 4 times every day - Active oxycodone 5 mg tablet take 1 tablet by oral route every 4 - 6 hours as needed 5 MG - Active NYSTATIN 100,000 UNIT/GM CREAM APPLY BY TOPICAL ROUTE 2 TIMES EVERY DAY TO THE AFFECTED AREA(S) UNDER BREASTS UNTIL AREA HEALED - Active LOSARTAN POTASSIUM 50 MG TAB TAKE 1 TABLET BY MOUTH TWICE A DAY - Active PREGABALIN 150 MG CAPSULE TAKE 1 CAPSULE BY MOUTH TWICE A DAY - Active VITAMIN D2 1.25MG(50,000 UNIT) TAKE 1 CAPSULE BY MOUTH EVERY Wednesday - Active PANTOPRAZOLE SOD DR 40 MG TAB TAKE 1 TABLET BY MOUTH EVERY DAY - Active ATORVASTATIN 10 MG TABLET TAKE 1 TABLET BY MOUTH EVERY DAY - Active ONDANSETRON HCL 4 MG TABLET TAKE 1 TABLET BY MOUTH THREE TIMES A DAY - Active Colace 100 mg capsule take 1 capsule by mouth once daily - Active Miralax 17 gram oral powder packet take 1 packet by oral route every day mixed with 8 oz. water, juice, soda, coffee or tea as needed - Active EPINEPHRINE 0.3 MG AUTO-INJECT INJECT 0.3 ML INTRAMUSCULARLY ONCE NEEDED FOR ANAPHYLAXIS - Active MEMANTINE HCL 5 MG TABLET TAKE 1 TABLET BY MOUTH TWICE A DAY - Active acyclovir 5 % topical cream apply by topical route up to 5 times every day to the affected area(s) as needed for outbreaks - Active PA approved 07/26/23-07/25/24 FLUTICASONE PROP 50 MCG SPRAY SHAKE LIQUID AND USE 2 SPRAYS IN EACH NOSTRIL EVERY DAY - Active PRIMIDONE 50 MG TABLET TAKE 4 TABLETS BY MOUTH TWICE DAILY - Active cranberry 500 mg capsule Patient takes 30,000mg capsule1 daily - Active AZO D-Mannose 500 mg capsule 1 twice daily - Active magnesium 250 mg tablet 1 tablet daily - Active vitamin B complex tablet take 1 tablet by oral route every day 1 tablet - Active Dulcolax (bisacodyl) 5 mg tablet,delayed release take 1 tablet by oral route at bedtime - Active Redbird Smith Nasal 0.65 % spray aerosol 2 sprays each nostril as needed - Active Mucinex 1,200 mg tablet, extended release 1 tablet twice daily as needed - Active albuterol sulfate HFA 90 mcg/actuation aerosol inhaler inhale 1 puff by inhalation route every 4 - 6 hours as needed 90 MCG - Active CETIRIZINE 10MG TABLETS TAKE 1 TABLET BY MOUTH ONCE DAILY 1 - Active Vitamin D3 400 unit tablet take 1 tablet daily - Active VITAMIN E 400 UNIT CAPS 2 QD-daily - Active budesonide-formote rol HFA 160 mcg-4.5 mcg/actuation aerosol inhaler inhale 2 puff by inhalation route 2 times every day in the morning and evening 2.00 puff - No Longer Active Procedures Procedure Date BASIC METABOLIC PANEL(BMP) Pt inelig neg scrn depres IMMUN ADMIN (INC PERCUTANEOUS) SINGLE, F IRST INJ TDAP INTRAMUSCULAR USE OFFICE LOCNN-DMU-HNOLATEH SYST BP >= 140 MM HG6 IT DIAST BP 80-89 MM HG ROUTINE VENIPUNCTURE IL CBC, INC PLATELETS AND DIFFERENTIAL COMPREHEN METABOLIC PANEL CMP LIPID PANEL LDL-CHOLESTEROL, DIRECT PRES/ABSN URINE INCON ASSESS Pt inelig neg scrn depres PREVENTATIVE-EST: 65 & OVER SYST BP GE 130 - 139MM HG DIAST BP 80-89 MM HG ROUTINE VENIPUNCTURE IL BASIC METABOLIC PANEL(BMP) Pt inelig neg scrn depres IMMUN ADMIN (INC PERCUTANEOUS) SINGLE, F IRST INJ Flu Vac, quad (RIV4), Preservative And A ntibiotic Free IM OFFICE [id number] SYST BP >= 140 MM HG6 IT DIAST BP < 80 MM HG ROUTINE VENIPUNCTURE IL CBC, INC PLATELETS AND DIFFERENTIAL COMPREHEN METABOLIC PANEL CMP LIPID PANEL Pt inelig neg scrn depres FALL RISK ASSESSMENT DOC'D PRES/ABSN URINE INCON ASSESS PREVENTATIVE-EST: 65 & OVER SYST BP >= 140 MM HG6 IT DIAST BP < 80 MM HG ROUTINE VENIPUNCTURE IL OFFICE [id number] SYST BP >= 140 MM HG6 IT DIAST BP 80-89 MM HG BASIC METABOLIC PANEL(BMP) ROUTINE VENIPUNCTURE BASIC METABOLIC PANEL(BMP) ROUTINE VENIPUNCTURE BASIC METABOLIC PANEL(BMP) ROUTINE VENIPUNCTURE IMMUN ADMIN (INC PERCUTANEOUS) SINGLE, F IRST INJ Flu Vac, quad (RIV4), Preservative And A ntibiotic Free IM OFFICE [id number] BODY MASS INDEX DOCD SYST BP >= 140 MM HG6 IT DIAST BP >= 90 MM HG BASIC METABOLIC PANEL(BMP) ROUTINE VENIPUNCTURE FORM CHARGE SYST BP >= 140 MM HG6 IT DIAST BP 80-89 MM HG OFFICE [id number] BODY MASS INDEX DOCD SYST BP >= 140 MM HG6 IT DIAST BP 80-89 MM HG PREVENTATIVE-EST: 65 & OVER BODY MASS INDEX DOCD SYST BP >= 140 MM HG6 IT DIAST BP 80-89 MM HG CBC, INC PLATELETS AND DIFFERENTIAL COMPREHEN METABOLIC PANEL [facility] 2 HEMOGLOBIN A1C HGA1C, GLYCO LIPID PANEL MICROALBUMIN, QN (URINE) CREATININE, (U-R) ROUTINE VENIPUNCTURE OFFICE [id number] CBC, INC PLATELETS AND DIFFERENTIAL COMPREHEN METABOLIC PANEL [facility] 1 HEMOGLOBIN A1C HGA1C, GLYCO ROUTINE VENIPUNCTURE OFFICE [id number] MED/CURRENT MED MERGE OFFICE [id number] BASIC METABOLIC PANEL(BMP) ROUTINE VENIPUNCTURE OFFICE [id number] BASIC METABOLIC PANEL(BMP) CREATININE, (U-R) URINALYSIS, DIPSTICK (UA) - Office Lab O ROUTINE VENIPUNCTURE BASIC METABOLIC PANEL(BMP) ROUTINE VENIPUNCTURE Admin influenza virus vac Flu Vac, quad (RIV4), Preservative And A ntibiotic Free IM BASIC METABOLIC PANEL(BMP) ROUTINE VENIPUNCTURE OFFICE [id number] BASIC METABOLIC PANEL(BMP) DRUG TEST (ANY NUMBER OF DRUG CLASSES) A ROUTINE VENIPUNCTURE Advance Directives Directive Yes / No Effective Date File Name Life Support Not Answered N/A N/A Intubation Not Answered N/A N/A Antibiotics Not Answered N/A N/A IV Fluid Support Not Answered N/A N/A Tube Feed Not Answered N/A N/A Other Directive N/A N/A WARNING:The information contained in this section is historical and is provided for information only and does not constitute a legal document or any assurance that the information is still accurate. Please verify the information with the triplett of the legal document before using it for clinical purposes. Encounters Encounter Description Practice Location Reason(s) For Visit Diagnoses Date Provider Providers Copied on Encounter [facility], [address], [place], [place], [address] , tel: [phone] [facility] [place] No Information 0 4 Dejesus Kay. [address] [place], [place], [address], [place]. tel:[phone] [facility], [address], [place], [place], [address] , tel: [phone] [facility] [place] No Information 4 Dejesus Kay. [address] [place], [address], [place]. tel:[phone] [facility], [address], [place], [place], [address] , tel: [phone] [facility] [place] No Information 4 American Hernando. [address] [place], [address], [place]. tel:[phone] [facility] [place], [address], [place], [address] , [place] tel: [phone] [facility] [place] No Information 4 American Hernando. 4 [place], [address], [place]. tel:[phone] [facility] [place], [address], [place], [place], [address] , [place] tel: [phone] [facility] [place] No Information 4 American Hernando. 4 [place], [address], [place]. tel:[phone] [facility], [address], [place], [place], [address] , tel: [phone] [facility] [place] No Information 4 American Hernando. 4 [place], [address], [place]. tel:[phone] [facility], [address], [place], [address] , [place] tel: [phone] [facility] [place] No Information 4 American Hernando. 4 [place], [address], [place]. tel:[phone] [facility] [place], [address], [place], [place], [address] , [place] tel: [phone] [facility] [place] No Information 4 Dejesus Kay. 4 [place], [address], [place]. tel: [phone] [facility] [place], [address], [place], [address] , [place] tel: [phone] [facility] [place] No Information 4 American Hernando. 4 [place], [address], [place]. tel: [phone] [facility] [place], [address], [place], [place], [address] , [place] tel: [phone] [facility] [place] No Information 4 American Hernando. 4 [place], [address], [place]. tel:[phone] [facility] [place], [address], [place], [address] , [place] tel: [phone] [facility] [place] No Information 4 American Hernando. 4 [place], [address], [place]. tel:[phone] [facility] [place], [address], [place], [address] , [place] tel: [phone] [facility] [place] No Information 4 Dixon Dixon. 4 [place], [address], [place]. tel:[phone] [facility] [place], [address], [place], [address] , [place] tel: [phone] [facility] [place] No Information 0 4 American Hernando. 4 [place], [address], [place]. [phone] [facility], [address], [place], [place], [address] , [place] tel: [phone] [facility] No Information 4 Ben Martinin. [address] [facility], [facility] [address], [place], [place], [address], [place]. [phone] Referring Provider: Hernando Velasquez, 4 [place], [address] . tel:[phone] OFFICE IWBCP-XTS-FB PANDED [facility], [address], [place], [place], [address] , [place] tel: [phone] [facility] hyponatremmia (chief complaint) Hyponatremia 4 English Villagomez. 4 [place], [address], [place]. tel:[phone] Referring Provider: Hernando Velasquez, 4 [place], [address] . tel:[phone] [facility], [address], [place], [address] , [place] tel: [phone] [facility] Oct- 4 English Villagomez. 4 [place], [address], [place]. tel:[phone] [facility], [address], [place], [address] , [place] tel: [phone] [facility] No Information 4 English Villagomez. 4 [place], [address], [place]. tel:[phone] [facility], [address], [place], [place], [address] , tel: [phone] [facility] Encounter for general adult medical examination without abnormal findingsEssen tial (primary) hypertensionH yperlipidemia , unspecified Apr- 0- 4 Ben Price. [address] [facility], [facility] [address], [place], [place], [address], [place]. tel:[phone] Referring Provider: [place], [address] . tel:[phone] PREVENTATIVE -EST: 65 & OVER [facility], [address], [place], [place], [address] , [place] tel: [phone] [facility] PX (chief complaint) Encounter for general adult medical examination without abnormal findingsEssen tia hypertension OPD with asthmaChronic GERDGAD (generalized anxiety disorder)Cere bral atrophyHistor y of above-knee amputation of left lower extremityEnco unter for screening for malignant neoplasm of colon 4 English Villagomez. 4 [place], [address], [place]. [phone] Referring Provider: [place], [address] . tel:[phone] [facility], [address], [place], [place], [address] , [place] tel: [phone] [facility] No Information 4 English Villagomez. 4 [place], [place], [address], [place]. [phone] [facility], [address], [place], [place], [address] , [place] tel: [phone] [facility] No Information 3 English Villagomez. 4 [place], [address], [place]. [phone] [facility], [address], [place], [place], [address] , [place] tel: [phone] [facility] No Information 3 Ben Price. [address] [facility], [facility] [address], [place], [place], [address], [place]. tel:[phone] Referring Provider: Hernando Velasquez, 4 [place], [address] . tel:[phone] OFFICE USRJC-WWS-MI TAILED [facility], [address], [place], [place], [address] , tel: [phone] [facility] chronic conditions (chief complaint) COPD with asthmaGAD (generalized anxiety disorder)Ess ntial hypertensionC hronic GERD 3 English Villagomez. 4 [place], [address], [place]. tel:[phone] Referring Provider: [place], [address] . tel:[phone] [facility], [address], [place], [place], [address] , tel:[phone] [facility] Vitamin D deficiency 3 English Villagomez. [address] [place] [address], [address], [place]. tel:[phone] [facility], [address], [place], [address] , tel:[phone] [facility] No Information 3 Ben Price. [address] [place] [address], [address], . tel:[phone] Referring Provider: [place], [address] . tel:[phone] PREVENTATIVE -EST: 65 & OVER [facility], [address], [place], [address] , tel: [phone] [facility] px (chief complaint) History of above-knee amputation of left lower extremityChro kamryn hypoxemic respiratory failureEssent ial hypertensionC erebral atrophyChroni c GERDCOPD with asthmaEncount er for general adult medical examination without abnormal findingsEncou nter for screening mammogram for malignant neoplasm of breast 3 English Villagomez. Clair [place], [address], [place]. tel:[phone] Referring Provider: Hernando American, [address] [place], [address] . tel:[phone] [facility] [place], [address], [place], [place], [address] , [place] tel: [phone] [facility] [place] Herpesviral infection of urogenital system 3 English Villagomez. Clair [place], [address], [place]. tel:[phone] [facility], [address], [place], [place], [address] , [place] tel: [phone] [facility] [facility] No Information 3 English Villagomez. Clair [place], [address], [place]. tel:[phone] [facility] [place], [address], [place], [place], [address] , [place] tel: [phone] [facility] [facility] Follow-up exam 3 English Villagomez. Clair [place], [address], [place]. [phone] OFFICE CHZCF-ANC-LQ PANDED [facility], [address], [place], [place], [address] , [place] tel: [phone] [place] Nocturnal leg cramps 2 English Villagomez. Clair [place], [address], [place]. tel:[phone] Referring Provider: [place], [address] . tel:[phone] [facility], [address], [place], [place], [address] , [place] tel: [phone] [place] Hyponatremia 2 American Hernando. Clair [place], [address], [place]. tel:[phone] Referring Provider: [place], [address] . tel:[phone] [facility], [address], [place], [place], [address] , tel:[phone] Aaron Low sodium levels Apr- 2 American Hernando. Cl[place], [address], [place]. tel:[phone] Referring Provider: [place], [address] . tel:[phone] [facility] [facility], [address], [place], [place], [address] , tel:[phone] Aaron Essential hypertension Apr- 2 American Hernando. Cl[place], [address], [place]. tel:[phone] Referring Provider: [place], [address] . tel:[phone] OFFICE MAEUL-TZU-OA [facility], [address], [place], [place], [address] , tel:[phone] Aaron Chronic Conditions (chief complaint) Body mass index [BMI] 36.0-36.9, adultEssentia l (primary) hypertensionM igraine, unspecified, not intractable, without status migrainosusMo rbid (severe) obesity due to excess caloriesAorti c atheroscleros is Mar- 2 American John. Self [place], [address], [place]. tel:[phone] Referring Provider: [place], [address] . tel:[phone] [employer] [facility], [address], [place], [place], [address] , tel:[phone] Aaron Cough, persistent Sep- 2 American Hernando. Cl[place], [address], [place]. tel:[phone] [facility] [employer] [facility], [address], [place], [place], [address] , tel:[phone] Aaron No Information Jan-0 2 American Hernando. Cl[place], [address], [place]. tel:[phone] [facility], [address], [place], [place], [address] , tel: [phone] Aaron No Information 2 English Villagomez. 4 [place], [place], [address], . tel:[phone] Referring Provider: Hernando Velasquez, [place], [address] . tel:[phone] OFFICE PAPBM-DDU-EA PANDED [facility], [address], [place], [place], [address] , tel: [phone] Aaron Discuss Power chair (chief complaint) History of above-knee amputation of left lower extremityChro kamryn hypoxemic respiratory failure 2 English Villagomez. [address] [place] [address], [address], . tel:[phone] Referring Provider: [place], [address] . tel:[phone] [facility], [address], [place], [address] , tel: [phone] Aaron Encounter for screening for malignant neoplasm of colonEncounte r for screening for malignant neoplasm of colon Oct-0 2 English Villagomez. [address] [place] [address], [address], [place]. tel:[phone] PREVENTATIVE -EST: 65 & OVER [facility], [address], [place], [place], [address] , tel: [phone] Aaron PX (chief complaint) Annual physical examChronic hypoxemic respiratory failureEssent ial (primary) hypertensionH istory of above-knee amputation of left lower extremityChro kamryn GERDCerebral atrophyCOPD with asthmaLow back pain, unspecifiedBo dy mass index [BMI] 35.0-35.9, adultDecrease d pulseMixed hyperlipidemi aHyperglycemi a 2 English Villagomez. [address] [place] [address], [address], [place]. tel:[phone] Referring Provider: Hernando Velasquez, [address] [place], [address] . tel:[phone] OFFICE JUROV-QOB-HQ [facility], [address], [place], [place], [address] , [phone] [facility] and intermediate f/u (chief complaint) Body mass index [BMI] 33.0-33.9, adultChronic hypoxemic respiratory failureHistor y of above-knee amputation of left lower extremityChro kamryn GERDCerebral atrophyEssent ial (primary) hypertensionS tage 3 chronic kidney disease, unspecified whether stage 3a or 3b CKDCOPD with asthmaHyperli pidemia, unspecified hyperlipidemi a typeAortic atheroscleros isOther chronic painGAD (generalized anxiety disorder)Hype rglycemiaPorp hyria 1 English Villagomez. [address] [place] [address], [address], . tel:[phone] Referring Provider: Hernando Velasquez, [place], [address] . tel:[phone] [facility], [address], [place], [address] , [place] tel:[phone] [place] No Information 1 English Villagomez. [address] [place] [address], [address], [place]. tel:[phone] OFFICE JGOXI-TRR-CR [facility], [address], [place], [place], [address] , tel:[phone] [place] telehealth (chief complaint)OV for form (chief complaint)Hansard Reporter kamryn Conditions (chief complaint) Unsteady gaitAortic atheroscleros isEssential (primary) hypertensionC erebral atrophyChroni c GERDNeuropath yChronic hypoxemic respiratory failure 0 Dejesus Kay. 4 [place], [place], [address], . tel:[phone] Referring Provider: [place], [address] . tel:[phone] [facility], [address], [place], [place], [address] , tel: [phone] [facility] calcification s 0 English Villagomez. 4 [place], [address], [place]. [phone] [facility], [address], [place], [address] , tel: [phone] [place] No Information English Villagomez. 4 [place], [address], [place]. tel:[phone] Referring Provider: [place], [address] . tel:[phone] OFFICE PGUJF-QHH-BS TAILED [facility], [address], [place], [address] , tel: [phone] [facility] f/u (chief complaint) Syncope, unspecified syncope typeChronic low back pain, unspecified back pain laterality, unspecified whether sciatica presentOther chronic painAKI (acute kidney injury)Hyperk alemiaBody mass index (BMI) 40.0-44.9, adultMorbid (severe) obesity due to excess calories Anjelica Kay. [address] [place], [place], [address], . [phone] Referring Provider: [place], [address] . tel:[phone] OFFICE FEAEA-LMB-QF PANDED [facility], [address], [place], [address] , [place] tel: [phone] [place] 1 week follow up (chief complaint) LUAN (acute kidney injury) 9 English Villagomez. 4 [place], [place], [address], [place]. [phone] Referring Provider: [place], [address] . tel:[phone] [facility], [address], [place], [place], [address] , tel: [phone] Aaron No Information 9 English Villagomez. [place], [address], . tel:[phone] [facility], [address], [place], [place], [address] , tel: [phone] Aaron Flu shot (chief complaint) Essential hypertensionE ncounter for immunization 9 English Villagomez. [place], [address], [place]. tel:[phone] Referring Provider: [place], [address] . tel:[phone] [facility], [address], [place], [place], [address] , tel: [phone] Aaron Essential hypertension English Villagomez. Cl[place], [address], [place]. tel:[phone] Referring Provider: [place], [address] . tel:[phone] OFFICE WTUSF-CTA-JC [facility], [address], [place], [place], [address] , tel: [phone] Aaron 6 month (chief complaint) Essential (primary) hypertensionC hronic GERDCerebral atrophyBody mass index (BMI) 40.0-44.9, adultMorbid (severe) obesity due to excess caloriesNeuro pathyLong term current use of opiate analgesic 9 American Hernando. Clair [place], [address], [place]. tel:[phone] Referring Provider: [place], [address] . tel:[phone] [employer] [employer] [facility], [address], [place], [place], [address] , tel:[phone] Aaron Breast calcification s 9 English Villagomez. Cl[place], [address], [place]. tel:[phone] [facility], [address], [place], [place], [address] , tel: [phone] Aaron No Information English John. Self [place], [address], . tel:[phone] [facility], [address], [place], [place], [address] , tel: [phone] Aaron Hormone replacement therapySympto ms such as flushing, sleeplessness , headache, lack of concentration , associated with natural (age-related) menopause English Villagomez. Clair [place], [place], [address], [place]. tel:[phone] [facility], [address], [place], [place], [address] , tel: [phone] Aaron sore under Left arm (chief complaint) Abscess of axilla English John. Self [place], [address], [place]. tel:[phone] Referring Provider: [place], [address] . tel:[phone] [employer], [address], [place], [place], [address] , tel: [phone] Aaron sores under left arm (chief complaint) Abscess of axilla 0 English John. Self [place], [address], [place]. tel:[phone] Referring Provider: [place], [address] . tel:[phone] [employer], [address], [place], [place], [address] , tel: [phone] Aaron SeizureMixed hyperlipidemi aEssential (primary) hypertensionC hronic GERDAortic atheroscleros isEsophageal strictureNeur opathy English John. Self [place], [address], . tel:[phone] Referring Provider: [place], [address] . tel:[phone] [employer], [address], [place], [place], [address] , tel: [phone] Aaron No Information 8 American Hernando. Clair [place], [address], . tel:[phone] Referring Provider: [place], [address] . tel:[phone] [employer] [facility], [address], [place], [place], [address] , tel: [phone] [place] Body mass index (BMI) 33.0-33.9, adultEssentia l (primary) hypertensionC OPD with asthmaChronic GERDHyperlipi demia, unspecified hyperlipidemi a typeInsomnia disorder, with non-sleep disorder mental comorbidity, recurrent 8 American Hernando. Clair [place], [address], . tel:[phone] Referring Provider: [place], [address] . tel:[phone] [employer], [address], [place], [place], [address] , tel: [phone] Aaron Abscess of neck 8 American Hernando. Clair [place], [address], [place]. tel:[phone] Referring Provider: [place], [address] . tel:[phone] [employer] [facility], [address], [place], [place], [address] , [place] tel: [phone] [place] Chronic respiratory failure with hypoxiaAortic atheroscleros isGAD (generalized anxiety disorder)Esse ntial (primary) hypertension 8 American Hernando. Clair [place], [address], [place]. tel:[phone] Referring Provider: Hernando Velasquez, 4 [place], [address] . 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 Clair [place], [address], . tel:[phone] Referring Provider: Hernando Velasquez, 4 [place], [address] . tel:[phone] [employer] [facility], [address], [place], [place], [address] , tel: [phone] Aaron Hyponatremia Sep-0 8 American Hernando. Clair [place], [address], . tel:[phone] Referring Provider: [place], [address] . tel:[phone] [employer], [address], [place], [place], [address] , tel: [phone] Aaron Chronic respiratory failure with hypoxiaUnspec ified convulsionsEs sential (primary) hypertensionM orbid (severe) obesity due to excess caloriesGastr oparesis 8 American Hernando. Clair [place], [address], . tel:[phone] Referring Provider: Hernando Velasquez, [place], [address] . tel:[phone] [employer], [address], [place], [place], [address] , tel: [phone] Aaron SOB (shortness of breath) 7 American Hernando. Clair [place], [address], . tel:[phone] [employer] [facility], [address], [place], [place], [address] , [place] tel: [phone] [place] Morbid obesity due to excess caloriesSeizu reChronic respiratory failure, unspecified whether with hypoxia or hypercapniaOt her and unspecified hyperlipidemi aAortic atheroscleros isOsteoarthri tis of knee, unspecifiedBi polar 1 disorderEssen tial tremor 7 English Villagomez. 4 [place], [address], [place]. [phone] Referring Provider: Hernando Velasquez, 4 [place], [address] . tel:[phone] [employer] [facility], [address], [place], [place], [address] , tel: [phone] [place] Chronic respiratory failure, unspecified whether with hypoxia or hypercapniaBi polar 1 disorderClass 3 obesity with serious comorbidity and body mass index (BMI) of 40.0 to 44.9 in adult, unspecified obesity typeSeizureSO B (shortness of breath)Benign essential hypertension 7 English Villagomez. 4 [place], [address], [place]. [phone] Referring Provider: Hernando Velasquez, 4 [place], [address] . tel:[phone] [employer] [facility], [address], [place], [place], [address] , tel: [phone] [place] Weakness 7 Eder Kennedy. [address], [address], . tel:[phone] [employer] [facility], [address], [place], [place], [address] , [place] tel: [phone] [place] Weakness 7 Eder Kennedy. [address], [address], [place]. tel:[phone] [employer] [facility], [address], [place], [place], [address] , tel: [phone] [place] Essential hypertensionM ixed hyperlipidemi aModerate episode of recurrent major depressive disorderSeizu reGastroesoph ageal reflux disease, esophagitis presence not specifiedMorb id obesity due to excess caloriesSyndr ome of inappropriate antidiuretic hormone Eder Kennedy. [address] [place] [address], [facility], . tel:[phone] Referring Provider: Marcia Gaines, [address] [place] [address], [facility]. tel:[phone] [employer], [address], [place], [place], [address] , tel: [phone] [place] Screening mammogram, encounter for Eder Kennedy. [address] [place] [address], [facility], . tel:[phone] [employer], [address], [place], [place], [address] , tel: [phone] [place] SOB (shortness of breath)Acute rhinosinusiti s American Hernando. [address] [place] [address], [address], . [phone] Referring Provider: Marcia Gaines, [address] [place] [address], [facility]. tel:[phone] [employer] [facility], [address], [place], [place], [address] , tel: [phone] [place] SeizureEssent ial hypertensionH yponatremiaMi xed hyperlipidemi aMorbid obesity due to excess caloriesModer ate episode of recurrent major depressive disorderLong term use of drug Jun- 6 Eder Kennedy. [address] [place] [address], [facility], . tel:[phone] Referring Provider: Marcia Gaines, [address] [place] [address], [facility]. tel:[phone] [employer], [address], [place], [place], [address] , tel: [phone] [place] SOB (shortness of breath) Nov-0 1-201 6 Eder Kennedy. [address] [facility], [facility], [place], [address], [place]. tel: [phone] [facility], [address], [place], [place], [address] , [place] tel: [phone] [place] Pathological fracture, left ankle, sequela Sep-2 8 6 Eder Kennedy. [address], [place], [address], [place]. tel: [phone] [facility], [address], [place], [place], [address] , [place] tel:[phone] [place] Pathological fracture, left ankle, sequela Sep-2 3-201 6 Eder Kennedy. [address] [facility], [place], [address], [place]. tel: [phone] [facility], [address], [place], [place], [address] , [place] tel: [phone] [place] Pathological fracture, left ankle, sequela Sep-1 6-201 6 Eder Kennedy. [address] [facility], [facility], [place], [address], [place]. tel: [phone] [facility], [address], [place], [place], [address] , [place] tel:[phone] [place] SANTI (obstructive sleep apnea) November- 6 Giovanny Dela Cruz. 4 [place], [address]. tel: [phone] [facility], [address], [place], [address] , [place] tel:[phone] [place] Carpal tunnel syndrome, unspecified upper limb Apr- 6 Meg Toney. 4 [place], [place], [address], [place]. tel: [phone] [facility], [address], [place], [place], [address] , [place] tel:[phone] [place] Osteoarthriti s of knee, unspecified Meg Toney. 4 [place], [address], [place]. tel:[phone] [employer] [facility], [address], [place], [address] , [place] tel: [phone] [place] Chronic, continuous use of opioidsOther and unspecified hyperlipidemi aImpaired fasting glucoseSleep apnea, unspecified typeEssential (primary) hypertensionF atty liverGastropa resis 6 Meg Toney. 4 [place], [place], [address], [place]. tel:[phone] Referring Provider: Feng Whitley, [address] [place], [address] . tel:[phone] [employer] [facility], [address], [place], [place], [address] , [place] tel: [phone] [place] Impaired fasting glucoseOther and unspecified hyperlipidemi aChronic, continuous use of opioids 6 Meg Toney. 4 [place], [place], [address], [place]. tel:[phone] Referring Provider: Feng Whitley, [address] [place], [address] . tel:[phone] [facility], [address], [place], [address] , [place] tel: [phone] [place] Lung nodule seen on imaging study 6 Meg Toney. 4 [place], [place], [address], [place]. tel:[phone] [facility], [address], [place], [address] , [place] tel: [phone] [place] Sleep apnea, unspecified type 6 Meg Toney. 4 [place], [address], [place]. tel:[phone] [facility], [address], [place], [address] , [place] tel: [phone] [place] Syndrome of inappropriate antidiuretic hormone 2 5 Meg Toney. 4 [place], [address], [place]. tel:[phone] Referring Provider: Feng Whitley, [address] [place], [address] . tel:[phone] [facility], [address], [place], [place], [address] , tel: [phone] [place] Low serum sodiumSyndrom e of inappropriate antidiuretic hormone May-0 9 5 Meg Toney. 4 [place], [address], [place]. tel:[phone] [facility], [address], [place], [address] , tel: [phone] [place] Low sodium levels 5 Meg Toney. 4 [place], [address], [place]. tel:[phone] Referring Provider: Feng Whitley, [address] [place], [address] . tel:[phone] [employer] [facility], [address], [place], [address] , [place] tel: [phone] [place] DermatitisEss ential (primary) hypertensionE ncntr for general adult medical exam w/o abnormal findingsHypon atremia 5 Torin John. [address] [place], [address], [place]. tel:[phone] Referring Provider: Feng Whitley, [address] [place], [address] . tel:[phone] [facility] [facility], [address], [place], [address] , tel: [phone] [place] Sleep apnea, unspecified 5 Meg Toney. 4 [place], [address], [place]. tel:[phone] [facility], [address], [place], [place], [address] , tel: [phone] [place] Hyperosmolali ty and/or hypernatremia Unspecified disease of white blood cells 5 Meg Toney. [address] [place], [address], . tel:[phone] Referring Provider: Feng Whitley, [address] [place], [address] . tel:[phone] [facility], [address], [place], [place], [address] , [place] tel: [phone] [place] Insomnia with sleep apnea, unspecifiedBe nign essential hypertensionB ackache, unspecifiedOt her and unspecified hyperlipidemi aOsteoarthros is, generalized, involving unspecified siteEsophagea l refluxOther convulsionsRi ght knee DJDAnalgesic useRoutine general medical examination at a health care facility 5 Meg Toney. [address] [place], [place], [address], [place]. [phone] Referring Provider: Feng Whitley, [address] [place], [address] . tel:[phone] [facility], [address], [place], [place], [address] , tel: [phone] [place] Impaired fasting glucose Mar- 5 Meg Toney. [address] [place], [place], [address], [place]. tel:[phone] Referring Provider: Feng Whitley, [address] [place], [address] . tel:[phone] [facility], [address], [place], [place], [address] , [place] tel: [phone] [place] Benign essential hypertensionU nspecified idiopathic peripheral neuropathyIns omnia with sleep apnea, unspecifiedOt her convulsionsIr ritable bowel syndromeGenit al herpes, unspecified Fe 5 Torin John. [address] [place], [address], [place]. tel:[phone] Referring Provider: Feng Whitley, [address] [place], [address] . tel:[phone] [employer] [facility], [address], [place], [place], [address] , tel: [phone] [place] No Information 4 Meg Toney. [address] [place], [place], [address], . tel:[phone] Referring Provider: Feng Whitley, [address] [place], [address] . tel:[phone] [facility], [address], [place], [place], [address] , tel: [phone] [place] Neoplasm of uncertain behavior of face Mar- 4 Torin John. [facility] [place], [address], . tel:[phone] [facility] [facility], [address], [place], [place], [address] , [place] tel: [phone] [place] Benign essential hypertensionB ackache, unspecifiedOt her and unspecified hyperlipidemi aUnspecified idiopathic peripheral neuropathyCTS (carpal tunnel syndrome)SANTI on CPAP 4 Meg Toney. 4 [place], [place], [address], . tel:[phone] Referring Provider: Feng Whitley, [address] [place], [address] . tel:[phone] [facility], [address], [place], [place], [address] , [place] tel: [phone] [place] Snoring 4 Torin John. [facility] [place], [address], [place]. tel:[phone] [facility], [address], [place], [place], [address] , [place] tel: [phone] [place] BENIGN HYPERTENSIONH YPERLIPIDEMIA NEC/NOSLong-t erm (current) use of other medicationsFA M HX-DIABETES MELLITUSImpai red fasting glucose 4 Meg Toney. [address] [place], [place], [address], [place]. tel:[phone] Referring Provider: Feng Whitley, [address] [place], [address] . tel:[phone] [facility], [address], [place], [address] , tel: [phone] [place] Iron deficiency anemia 4 Meg Toney. [address] [place], [place], [address], [place]. tel:[phone] Referring Provider: Feng Whitley, [address] [place], [address] . tel:[phone] [facility], [address], [place], [place], [address] , tel: [phone] No Information 3 Giovanny Guerraorah. 4 [place], [address]. tel:[phone] [facility], [address], [place], [place], [address] , [place] tel: [phone] [place] No Information 3 Meg Toney. [address] [place], [place], [address], [place]. tel:[phone] [facility], [address], [place], [place], [address] , [place] tel: [phone] [place] IRRITABLE BOWEL SYNDROMEBENIG N HYPERTENSIONI NINA PERIPH NEURPTHY NOSESOPHAGEAL REFLUXGENERAL OSTEOARTHROSI SCONVULSIONS NECHeart murmur 3 Torin John. [address] [place], [address], [place]. tel:[phone] Referring Provider: Feng Whitley, [address] [place], [address] . tel:[phone] [facility], [address], [place], [place], [address] , tel: [phone] [place] Cough 3 Meg Toney. [address] [place], [place], [address], . tel:[phone] [facility], [address], [place], [place], [address] , tel: [phone] [place] BENIGN HYPERTENSIONB ACKACHE NOSCONVULSION S NECRight knee DJDEsophageal refluxOther and unspecified hyperlipidemi a 3 Mge Toney. [address] [place], [place], [address], [place]. tel:[phone] Referring Provider: Feng Whitley, [address] [place], [address] . tel:[phone] [facility], [address], [place], [address] , tel: [phone] Aaron Other and unspecified hyperlipidemi aBenign essential hypertensionL coleen-term (current) use of other medications 3 Meg Toney. [address] [place], [place], [address], [place]. tel:[phone] Referring Provider: Feng Whitley, [address] [place], [address] . tel:[phone] [facility], [address], [place], [place], [address] , tel: [phone] [place] No Information 2 Meg Toney. [address] [place], [place], [address], [place]. tel:[phone] Referring Provider: Feng Whitley, [address] [place], [address] . tel:[phone] [facility], [address], [place], [place], [address] , tel: [phone] [place] IDIO PERIPH NEURPTHY NOSCONVULSION S NECBENIGN HYPERTENSIONG ENITAL HERPES NOSHYPERLIPID EMIA NEC/NOSAllerg ic rhinitis 2 Torin John. [address] [place], [address], [place]. tel:[phone] Referring Provider: Feng Whitley, [address] [place], [address] . tel:[phone] [facility], [address], [place], [place], [address] , tel: [phone] Aaron Blood in stool 2 Meg Toney. [address] [place], [address], [place]. tel:[phone] Referring Provider: Feng Whitley, [address] [place], [address] . tel:[phone] [employer] [facility], [address], [place], [place], [address] , tel: [phone] Aaron Long-term (current) use of other medications 1 Meg Toney. Cl[place], [address], [place]. tel:[phone] Referring Provider: Feng Whitley, [address] [place], [address] . tel:[phone] [employer] [facility], [address], [place], [place], [address] , tel: [phone] [place] No Information 1 Meg Toney. [address] [place] [address], [address], [place]. tel:[phone] Referring Provider: Feng Whitley, [address] [place], [address] . tel:[phone] [employer] [facility], [address], [place], [place], [address] , tel:[phone] Aaron HYPERLIPIDEMI A NEC/NOSLONG-T ERM USE MEDS NEC 1 Meg Toney. Cl[place], [address], [place]. tel:[phone] [employer] [facility], [address], [place], [address] , [place] tel: [phone] Aaron No Information 0 1 Meg Self [place], [address], . tel:[phone] [facility] [employer], [address], [place], [place], [address] , [place] tel: [phone] [place] IDIO PERIPH NEURPTHY NOS 1 Torin John. [address] [place], [address], [place]. tel:[phone] [employer] [facility], [address], [place], [place], [address] , tel: [phone] Aaron BENIGN HYPERTENSION 1 Meg Self [place], [address], [place]. tel: [phone] [employer] [facility], [address], [place], [place], [address] , [place] tel: [phone] Aaron HERPES ZOSTER NOS 0 Meg Self [place], [address], [place]. tel: [phone] [employer] [facility], [address], [place], [address] , tel: [phone] Aaron SCREEN MALIG NEOP-COLON 0 Meg Self [place], [address], [place]. tel:[phone] [facility], [address], [place], [address] , [place] tel: [phone] Aaron VACCIN FOR INFLUENZA 0 Meg Self [place], [address], [place]. tel:[phone] [employer] [facility], [address], [place], [place], [address] , [place] tel: [phone] Aaron TEAR FILM INSUFFIC NOS Mar-0 2-201 0 Conversion Doctor. [address] [facility], [place], [address], [place]. [facility], [address], [place], [place], [address] , tel: [phone] Aaron FAM HX-DIABETES MELLITUS 2- 0 Elizabethcorrina ToneyViraj Cl[address] [place], [address], [place]. tel: [phone] [facility], [address], [place], [address] , [place] tel: Aaron GENERAL OSTEOARTHROSI S 0 Elizabethcorrina ToneyViraj [address] [place] [address], [address], [place]. tel: [phone] [facility], [address], [place], [address] , tel: [phone] Aaron GENITAL HERPES NOS 0 Sugeysilvina ToneyViraj [address] [place] [address], [address], [place]. tel: [phone] [facility], [address], [place], [address] , [place] tel: [phone] Aaron CONVULSIONS NEC 6200 9 Meg ToneyViraj Self [place], [address], [place]. tel: [phone] [facility], [address], [place], [address] , [place] tel: [phone] [place] No Information 2200 8 Elizabethcorrina ToneyViraj Self [place], [address], [place]. tel: [phone] [facility], [address], [place], [place], [address] , tel: [phone] [place] MIGRNE UNSP WO NTRC MGRNESOPHAGEA L REFLUX 0-200 7 Sugeysilvina ToneyViraj Self [place], [address], [place]. tel:[phone] [facility], [address], [place], [place], [address] , tel: [phone] [place] HORMONE REPLACE POSTMENO 7 Meg Self [place], [address], . tel:[phone] [facility], [address], [place], [address] , tel: [phone] [place] SCREEN LIPOID DISORDERS 5 Meg Self [place], [address], [place]. tel:[phone] [facility], [address], [place], [place], [address] , tel: [phone] [place] ROUTINE MEDICAL EXAM 3 Meg Self [place], [address], . tel: [phone] [facility], [address], [place], [place], [address] , tel: [phone] [place] SCREEN MAL NEOP OTH SITE 2 Meg Self [place], [address], . tel:[phone] Family History Family Member Type Diagnosis Age At Onset Brother Problem (finding) Father Problem (finding) Obesity Problem (finding) Family history of Heari ng impairment Father Problem (finding) hypertension Problem (finding) Family history of raise d blood lipids Father Problem (finding) coronary arterioscleros is Mother Problem (finding) Mental illness Mother Problem (finding) diabetes melli tus in first degree relative Mother Problem (finding) Allergies Problem (finding) Family history of alcoh olism Problem (finding) Family history of hyper tension Father Problem (finding) diabetes melli tus in first degree relative Mother Problem (finding) osteoporosis Mother Problem (finding) osteoarthritis Mother Problem (finding) depression Mother Problem (finding) Peripheral vascular dis ease Problem (finding) Family history of depre ssion Mother Problem (finding) hypertension Mother Problem (finding) coronary arterioscleros is Father Problem (finding) alcoholism Problem (finding) Family history of Menta l illness Family h/o Problem (finding) DIABETES MELLITUS Brother Problem (finding) suicide (Cause Of ) Immunizations Vaccine Date Status Comments COVID-19, mRNA, LNP-S, PF, guerrero-sucrose, 30 mcg/0.3 mL administered Source: Othe r Provider Tdap administered Source: New Imm unization Record Flublok, quadrivalent, preservative free, 0.5mL dosage administered Source: New Immunization Record Pfizer (Bivalent Booster) CO VID Vac, 30mcg/0.3mL, 12+ years administered Source: Othe r Provider Flublok, quadrivalent, preservative free, 0.5mL dosage administered Source: New Immunization Record Pfizer (Diluent Reconstitute d) COVID19 Vaccine, 0.3mL per dose, 2 doses, administered 21 days apart administered Note: intermediate n [facility] ; Source: Other Provider Fluzone High-Dose, high dose , preservative free administered Note: done at the [place] (date is approximate) ; Source: Source Unspecified Pfizer-BioNTech COVID19 Vaccine, 0.3mL per dose, 2 doses, administered 21 days apart administered Note: [facility] ; Source: Source Unspecified Pfizer-BioNTech COVID19 Vaccine, 0.3mL per dose, 2 doses, administered 21 days apart administered Note: [facility] ; Source: Source Unspecified pneumococcal polysaccharide vaccine, 23 valent administered Note: hospital ; [facility] rce: Source Unspecified Flublok, quadrivalent, preservative free, 0.5mL dosage administered Source: New Immunization Record SHINGRIX (Zoster vaccine recombinant, adjuvanted) administered Note: will get the next one in December ; Source: Source Unspecified Pneumococcal conjugate PCV 13 administere d Source: Source Unspecified Pneumococcal polysaccharide PPV23 administered Source: New Immuniza tion Record Flublok, quadrivalent, preservative free, 0.5mL dosage administered Source: New Immunization Record Fluzone Quad , preservative free, split virus, 0.5mL dosage administered Source: New Immuniza tion Record Influenza, injectable, quadrivalent, preservative free, 3 yrs or older administered Source: New Immuniz ation Record Pneumococcal conjugate PCV 13 administere d Source: New Immunization Record Influenza, injectable, quadrivalent, preservative free, 3 yrs or older administered Source: New Immuniz ation Record Fluzone administered Note: [facility] [id number] ; Source: New Immunization Record Fluzone administered Note: [facility]# [id number] ; Source: New Immunization Record Flu (split) (3 yrs or older) administered Source: New Immunization Record 96902 - Influenza administered Source: So urce Unspecified 20106 - Influenza administered Source: So urce Unspecified 07643 - Pneumococcal_PPV23 administered S ource: Source Unspecified 06959 - Influenza administered Source: So urce Unspecified 75818 - Influenza administered Source: So urce Unspecified 98980 - Influenza administered Source: So urce Unspecified 52267 - Influenza administered Source: So urce Unspecified 57511 - Influenza administered Source: So urce Unspecified 21783 - Influenza administered Source: So urce Unspecified Payers Payer name Insurance type Covered alliance party ID Authoriza tion(s) [employer]ETNA PPO CI [id number] AETNA PPO CI [id number] AETNA PPO CI [id number] [facility] [place] [facility] MB [id number] [facility] [id number] [facility] [employer] [facility] [id number] [facility] [place] [facility] [facility] [id number] [facility] [place] [facility] [facility] [id number] [facility] [place] [facility] [employer] MB [id number] Social History Type Description Quantity Date Captured Comments Alcohol Use Details Unknown Caffeine Use Details Unknown Tobacco Use Status No Information Smoking Status No Information Sex Female Chief Complaint And Reason For Visit No Information Reason For Referral Reason For Referral No Information Plan Of Treatment Date Type Action Status Goal Dietary manageme nt education, guidance, and counseling completed Goal Dietary manageme nt education, guidance, and counseling completed Goal Dietary manageme nt education, guidance, and counseling completed Goal Dietary manageme nt education, guidance, and counseling completed Goal Dietary manageme nt education, guidance, and counseling completed Referral Referred To: [address] [facility] [place], [id number] [phone] Ordered: SCREENING MAMMOGRAM (CAD) ordered Referral Ordered: JUAN C POLANCO -[facility] Phys[facility] : Orthopaedic Surgery (related to Follow-up exam) ordered Referral Referred To: JUAN C POLANCO [address] [place], [address] [phone] Ordered: Referrals: Orthopedic Surgery. JUAN C POLANCO. Evaluation/diagnostic/treatment - Level 3 Appointment date/timeframe: 09/24/2022 ordered Referral Ordered: COLONOSCOPY, Flexible, Proximal To Splenic, Diagnostic, Wor W/O Collection Of Sp ordered Referral Ordered: HANG (ankle brachial index) ordered Referral Referred To: Dean Stephenson MD [address] [facility] [address] [place], [address] [phone] Ordered: Referrals: Pulmonology. Dean Stephenson MD. Evaluation/diagnostic/treatment - Level 3 ordered Referral Ordered: DIAGNOSTIC MAMMOGRAM (CAD) ONE BREAST Left Appointment date/timeframe: 02/23/2019 ordered Patient Education [place] Exercises for Vertigo: Care~ completed History Of Present Illness Encounter Date Complaint History Of Prese nt Illness hyponatremmia hyponatramia-- c hronic up and down, no associated fatigue, doesnt eat a lot of saltno water pills PX Chronic conditio nshtn-- controlled on medgerd-- controlledanxiety-- doing okleft aka-- afte rinfectioncopd---breathing okcerebral atrophy-- memory is down a bitdiet-- doesnt eat a lotexercise-- not muchimmunizations--utdscreenings-- needs colonoscopymood-- sometimes depressedmemory-- decreased chronic conditions htn-- control led on medcopd-- breathing ok, some wheezinggerd was worse this weekmood is doing ok px Chronic conditio nsrespiratouyr failure-- uses oxygen th etimecopd-- breathing has been done at alln-- controlled at homecerebral aterophy-- memory [place]--- doing fine, doesnt use a prostethcidiet--okexercise-- not muchimmunizationsscreeningsmoodsleepmemo ry-- fine cramps leg cramps at ni ght, in rigth leg, doesnt have left legcant get up to stretch Chronic Conditions *See Chronic Conditions HPI Discuss Power chair chief compla int- -mobility examshe always needed a power mibility chair, she had one and it brokewe cant get her height bc of akamild swelling in right legno pressure soresbelow normal ability to shift weightpt cannot walk at all bc of [id number] strength in right legstrengthin right arm 2/5strength in left arm 5/5pain in rigth leg 5/10pain in rigth arm 7/10pain in left arm 0/10pt has no gait bc of akapt has decreased rom in rigth armaaaapt also has respiratory failure and is on oxygenpower mobility device is needed to use the bathroomcan and walker is not able to be used bc pt cannot walk at all bc she has left akapt cannot use manual wheelchair bc of weaknkess and pain in rigth arm4pt cannot use tiller of a POC bc of pain and weakness in rigth armpt can safely use pmd in homept is willing and motivated to use pmd in home PX chronic conditio nscopd-- still wheezinghtn-too high at home an dhererespiratory failure-- using oxygen as directedsp aka---does ok in manual wheelchairgerd-- controlled on medchronic back pain-- controlle don medgad-- controlled on meddiet---hungry all the timeexercise-- cantno risk for drug abusescreening-- needs mammogram and colon cancer screeningimmunizations--utdmood-- up and downmemory-- fine hospital and intermediate f/u re spiratpry failure-- still on oxygenleft aka-- from tibial fracture, can maneuver in wheelchairgerd-- controlled on medhtn-- controlled on medaa-- seen on scancerebral atrophy-- memory okgad-- controlled with ativanckd 3-- has had luan also in past Chronic Conditions *See Chronic Conditions HPI telehealth Telehealth visit done today via face to face audio/visual call with pt's verbal consent due to restrictions from the COVID 19 pandemic. All issues as below were discussed and addressed but no physical exam was performed unless allowed by visual confirmation on the video visit. This was performed while I was in my office in [place], [place], and pt. was in their home in [place]. OV for form Patient presents for evaluation for transportation form. Patient reports that she needs transportation to medical appointments. She is currently in a rehab facility after an ORIF for ankle and tibial fracture. She is in a manual wheelchair. She uses a wheelchair prior to ORIF as well due to unsteady gait. Patient also reports poor vision and cataracts. Patient did not have meds near her to confirm today hospital f/u 68 year old reagan patel who presents for hospital follow-up. She was admitted to [facility] on 06/10/2019. Patient presented to ER with right sided back pain with spasms, neck pain and inability to ambulate due to severe pain. She reported 4 falls in the past 2 weeks. She presented by EMS to ER after an unwitnessed fall. Patient was found on floor by a neighbor. Patient was admitted to hospital for observation due to back pain and syncope. No signs of fractures on cervical and lumbar x-ray. Patient was given home doses of Tillar and was given Flexeril, lidocaine patches and toradol in hospital. MRI lumbar spine: minor lumbar spondolytic changes, spinal canal stenosis most noticeable at L3/L4 where there is mild narrowingCardiology - serial trops were negative, carotid ultrasound: 16-49% stenosis in MINOO and 1-15% stenosis on LIC. Neurology- MRI brain: no acute/recent infarct, Patient had no opiates on UDS. She was discharged on 06/13/2019. She was given a back brace upon discharge which she has been wearing. She has a follow-up appointment on 07/04/2019 with pain managementPatient was also evaluated in ER yesterday morning at 0300 for same complaint. She was given Toradol IM, Flexeril PO, topical capsaicin, Baclofen PO and home dose of Tillar. Patient was discharged with no new medications. She had no other imaging performedPatient was noted to have hyperkalemia one month ago. We will check labs todayShe has a TENS units (latex free) but she still has a rash from the patches.Patient feels that her hydrocodone needs to be increased. She is not getting any pain relief from the Tillar 7.5mg every 8 hoursPatient also reports that her tremors are worsening. She takes primidone 50 mg in morning and 50 mg in evening currently 1 week follow up luan---looks lik e dehydrationlabs, on doubel dose of lasix Flu shot Administered flu shot- patient tolerated well. 6 month cerebral atrophy --seen on ct scan, no memory changeshtn---bp high, has some leg swellinggerd-- ok, controlledmorbid obesity-- weigth was upneuropathy, not any better sore under Left arm getting bett clair has two small red bumps under armno feevron abx sores under left arm tenderred, bulginglow grade fever Functional Status Date Functional Assessmen t No Information Instructions Date Instruction Additional Infor mation will check bmp and urine Related to Hyponatremia Medication management annual flu shotget r sv vaccineneeds colonoscopy Related to Encounter for general adult medical examination without abnormal findings continue inhalercall if breathing worsens Related to COPD with asthma continue meds Related to Chron ic GERD continue meds as needed Related to JACKIE (generalized anxiety disorder) continue medslow salt diet Relat ed to Essential hypertension continue to use wheelchair Relat ed to History of above-knee amputation of left lower extremity will start memantine Related to Cerebral atrophy Fall Risk Prevention Urinary Incontinence Medication management continue inhalers Related to PATIENT ACCESS REGISTRAR D with asthma continue medsstay active Related to JACKIE (generalized anxiety disorder) continue medslow salt diet Relat ed to Essential hypertension continue meds Related to Chron ic GERD Medication management will monitor memory Related to C erebral atrophy continue meds Related to Chron ic GERD use inhaler Related to COPD with asthma continue medslow salt diet Relat ed to Essential hypertension contune to use wheelchair Relate d to History of above-knee amputation of left lower extremity continue oxygen Related to Chron ic hypoxemic respiratory failure needs colonosocpy an d mammogramhealthy dietdo strength training Related to Encounter for general adult medical examination without abnormal findings Fall Risk Prevention Medication management Fall Risk Prevention Urinary Incontinence stretch exercise bef ore bedtake b complex vitamincan use magnesium also Related to Nocturnal leg cramps Medication management increase activity Related to Mor bid (severe) obesity due to excess calories will monitor lower bp may help R elated to Migraine, unspecified, not intractable, without status migrainosus monitor bp at homewi ll increase metoprolol Related to Essential (primary) hypertension Medication management Dietary management e ducation, guidance, and counseling Related to Body mass index (BMI) 36.0-36.9, adult needs power mobility device Rela jeannie to History of above-knee amputation of left lower extremity continue oxygen Related to Chron ic hypoxemic respiratory failure Medication management needs mammogramcheck FIT test for colon cancer screeninghealth diet stay as active as possiblefollow up in 6 month Related to Annual physical exam continue meds Related to COPD with asthma continue pain pills Related to L ow back pain, unspecified continue meds Related to Chron ic GERD continue to use wheelchair Relat ed to History of above-knee amputation of left lower extremity increase metoprololc all with readings in 1-2 weeks Related to Essential (primary) hypertension continue oxygen Related to Chron ic hypoxemic respiratory failure will montior memory Related to C erebral atrophy will get hang Related to Decre ased pulse Medication management Dietary management e ducation, guidance, and counseling Related to Body mass index (BMI) 35.0-35.9, adult Fall Risk Prevention Urinary Incontinence continue statin Related to Aorti c atherosclerosis continue pain meds as needed Rel ated to Other chronic pain continue ativan Related to JACKIE ( generalized anxiety disorder) continue statin Related to Hyper lipidemia, unspecified hyperlipidemia type contineu to monitor breathing Re lated to COPD with asthma will check bmp Related to Stage 3 chronic kidney disease, unspecified whether stage 3a or 3b CKD needs wheelchair Related to Hist ory of above-knee amputation of left lower extremity continue to use oxygen Related t o Chronic hypoxemic respiratory failure Dietary management e ducation, guidance, and counseling Related to Body mass index (BMI) 33.0-33.9, adult Medication management Continue using oxygen Related to Chronic hypoxemic respiratory failure Use wheelchair. We w ill fill out form for transportation needs Related to Unsteady gait This is a common fin ding on chest imaging with mild plaque build up on the aorta. Continue to work on good blood pressure and cholesterol control to reduce risk of stroke and heart attack Related to Aortic atherosclerosis Continue medications . Avoid foods that trigger symptoms Related to Chronic GERD This is mild. Adonis adams continue to monitor Related to Cerebral atrophy Continue gabapentin Related to N europathy This is controlled. Continue medications Related to Essential (primary) hypertension Encourage healthy diet and exerc ise Related to Morbid (severe) obesity due to excess calories We will check labs today Related to Hyperkalemia Follow-up with pain management as scheduled Related to Chronic low back pain, unspecified back pain laterality, unspecified whether sciatica present We will check BMP today Related to LUAN (acute kidney injury) No new episodes of syncope Relat ed to Syncope, unspecified syncope type Follow-up with pain management as scheduled Related to Other chronic pain Dietary management e ducation, guidance, and counseling Related to Body mass index (BMI) 40.0-44.9, adult will recheck bmpchec k uago lasix once a dayif kidney function still down, will get renal us Related to LUAN (acute kidney injury) Medication management need to decrease royce orieslow carb diet Related to Morbid (severe) obesity due to excess calories will add additiuonal dose of gabapentin at night Related to Neuropathy bp at goalcontinue medscheck bmp Related to Essential (primary) hypertension see below Related to Body mass index (BMI) 40.0-44.9, adult stablecontinue meds Related to C hronic GERD lillie continue to monitor mem ory Related to Cerebral atrophy Dietary management e ducation, guidance, and counseling Related to Body mass index (BMI) 40.0-44.9, adult Medication management sally coates has some hydranitis suppurative Related to Abscess of axilla Medication management fabiana treat with doxyc all next week if not better Related to Abscess of axilla Medication management Assessments Type Assessment Date No Information Patient Care Teams Name Effective Dates (start - stop) Status Members No Information
--- OUTSIDE RECORDS SUMMARY | 2024-08-13 04:58 | XMS_ITS | Encounter Summary ---
Author Organization [facility] Healthcare Address [address] [place] [address] Care Team Providers Care Internal Control Specialist Name Role Phone Jose Manuel Gruber MD Unavailable [phone] Hernando Velasquez MD Primary Care Provider [phone] Reason for Referral * (Routine) - Closed Specialty Diagnoses / Procedures Referred By Kesha t Referred To Contact Diagnoses Mild intermittent asthma without complication Procedures Pulmonary Function Test -[facility]; Bedside PFT/Flow Vol Loop (FVL) Dean Stephenson MD [address] [place] [address] [address] [place] [address] Phone: tel: fax: Referral ID Status Reason Start Date Expiration Date Visits Re quested Visits Authorized [id number] Closed 01/07/2022 02/06/2023 1 1 Reason for Visit * (Routine) - Closed Specialty Diagnoses / Procedures Referred By Kesha diggs Referred To Contact Diagnoses Mild intermittent asthma without complication Procedures Pulmonary Function Test -[facility]; Bedside PFT/Flow Vol Loop (FVL) Dean Stephenson MD [address] [place] [address] [address] [place] [address] Phone: tel: fax: Referral ID Status Reason Start Date Expiration Date Visits Re quested Visits Authorized [id number] Closed 01/07/2022 02/06/2023 1 1 Encounter Details Date Type Department Care Team (Latest Contact Info) Description 02/26/2022 12:45 PM CDT - 02/26/2022 11:59 PM CDT Hospital Encounter [facility] Respiratory [address] [place] [address] Mild intermittent asthma without complication Discharge Disposition: [...] 04/15/20 22 zolpidem (AMBIEN) 10 mg tablet 1 04/15/20 22 documented as of this encounter Discharge Disposition Disposition Code Departure Means Destination Discharge to home or self care documented in this encounter Plan of Treatment Not on file documented as of this encounter Procedures Procedure Name Priority Date/Time Associated Diagnosis Comments PULMONARY FUNCTION TEST (PFT) Routine 02/26/2022 1:40 PM CDT Mild intermittent asthma without complication documented in this encounter Results * (ABNORMAL) Pulmonary Function Test - (02/26/2022 1:40 PM CDT) Pathologist [facility] FVC PRE 2.16 2.03 - 3.52 L 02/26/2022 1:39 PM CDT [facility] FEV1 PRE 1.80 1.58 - 2.74 L 02/26/2022 1:39 PM CDT [facility] [id number] 83.44 65.17 - 91.55 % 02/26/2022 1:39 PM CDT [facility] ZYU20-50% PRE 2.53 0.87 - 2.85 L/s 02/26/2022 1:39 PM CDT [facility] PEF PRE 5.14 4.14 - 7.10 L/s 02/26/2022 1:39 PM CDT [facility] FET 100% PRE 13.26 sec 02/26/2022 1:39 PM CDT [facility] FIVC PRE 1.49(L) 1.83 - 3.21 L 02/26/2022 1:39 PM CDT [facility] FIF50% PRE 1.95 L/s 02/26/2022 1:39 PM CDT [facility] Anatomical Region Laterality Modality PFT 02/26/2022 1:12 PM CDT Impressions 03/03/2022 9:08 PM CDT 1. ??No evidence of obstruction 2. ??Cannot exclude restrictive ventilatory limitation without lung volumes 3. ??Compared with prior study on 01/23/2014 no significant change was found 4. ??ABG performed on 4 liters/minute of supplemental oxygen demonstrates respiratory acidosis and normal oxygenation Electronically signed by Dustin Drake MD Pulmonary & Critical Care Narrative 03/03/2022 9:08 PM CDT PULMONARY FUNCTION TESTS Pepper A Hartney 71 y.o. 03/03/2022 INTERPRETATION Please see technologist's comments mentioned in attached results report. SPIROMETRY: ??Pre bronchodilator FEV1 is 84 % predicted, FVC is 78 % predicted, FEV1/FVC is 0.83 Bronchodilator response: ??Not performed Inspection of the patient's flow-volume loops shows: ??Normal configuration of the inspiratory and expiratory limbs. us Dean Stephenson MD PFT ORDERABLES Final Res ult documented in this encounter Visit Diagnoses Diagnosis Mild intermittent asthma without complication documented in this encounter Care Teams Internal Control Specialist Relationship Specialty Start Date End Date Hernando Velasquez MD [address] [place] [address] PCP - General Internal Medicine 01/07/22 Jose Manuel Gruber MD Fellow Orthopedic Surgery 07/06/19 documented as of this encounter
--- OUTSIDE RECORDS SUMMARY | 2024-08-13 04:58 | XMS_ITS | Encounter Summary ---
Author Organization [facility] Healthcare Address [address] [place] [address] Care Team Providers Care Special Education Itinerant Teacher Name Role Phone Jose Manuel Gruber MD Unavailable [phone] Hernando Velasquez MD Primary Care Provider [phone] Encounter Details Date Type Department Care Team (Latest Contact Info) Description 03/19/2022 12:29 PM CDT - 03/19/2022 11:59 PM CDT Hospital Encounter [facility] Respiratory [address] [place] [address] Discharge Disposition: Discharge to home or self [...] times a day 60 tablet 0 04/15/20 senna (SENOKOT) 8.6 mg tablet Take 1 tablet by mouth daily 04/15/20 22 zolpidem (AMBIEN) 10 mg tablet 1 04/15/20 22 documented as of this encounter Discharge Disposition Disposition Code Departure Means Destination Discharge to home or self care documented in this encounter Plan of Treatment Not on file documented as of this encounter Procedures Procedure Name Priority Date/Time Associated Diagnosis Comments BLOOD GAS, ARTERIAL STAT 03/19/2022 1 :02 PM CDT documented in this encounter Results * (ABNORMAL) Blood gas, arterial (03/19/2022 1:02 PM CDT) pH, Art 7.37 7.35 - 7.45 [facility] PCO2, Arterial 49(H) 35 - 45 mmHg [facility] PO2, Arterial 73(L) 83 - 108 mmHg [facility] HCO3 Art (Calculated) 28 20 - 30 mmol/L [facility] BE, art 2 mmol/L [facility] Comment: Interpretive Data No Reference Range Established Current Interpretive Data was last revised on 2017. O2 Sat Art (Measured) 95 90 - 95 % [facility] Blood 03/19/2022 1:02 PM CDT 03/19/2022 1:12 PM CDT us Dean Stephenson MD LAB BLOOD ORDERABLES Ellyn l Result [facility] [address] [facility] [place] [address] documented in this encounter Visit Diagnoses Not on filedocumented in this encounter Care Teams Special Education Itinerant Teacher Relationship Specialty Start Date End Date Hernando Velasquez MD [address] [place] [address] PCP - General Internal Medicine 01/07/22 Jose Manuel Gruber MD Fellow Orthopedic Surgery 07/06/19 documented as of this encounter
--- OUTSIDE RECORDS SUMMARY | 2024-08-13 04:58 | XMS_ITS | Encounter Summary ---
Author Organization [facility] Address [address] [place] [address] Care Team Providers Care Receiver/Laborer Name Role Phone Jose Manuel Gruber MD Unavailable [phone] Hernando Velasquez MD Primary Care Provider [phone] Reason for Referral * Diagnostic Imaging (Routine) - Closed Specialty Diagnoses / Procedures Referred By Contac t Referred To Contact Diagnoses Mild intermittent asthma without complication Procedures XR Chest Pa Lateral 2 Views Dean Stephenson MD [address] [place] [address] Phone: tel: fax: [facility] [address] [place] [address] Referral ID Status Reason Start Date Expiration Date Visits Re quested Visits Authorized [id number] Closed 01/07/2022 02/06/2023 1 1 * (Routine) - Closed Specialty Diagnoses / Procedures Referred By Kesha t Referred To Contact Diagnoses Mild intermittent asthma without complication Procedures Pulmonary Function Test -[facility]; Bedside PFT/Flow Vol Loop (FVL) Dean Stephenson MD [address] [place] [phone] Phone: tel: fax: Referral ID Status Reason Start Date Expiration Date Visits Re quested Visits Authorized [id number] Closed 01/07/2022 02/06/2023 1 1 Reason for Visit * Reason Comments Follow-up Encounter Details Date Type Department Care Team (Late st Contact Info) Description 01/07/2022 1:15 PM CDT Office Visit [facility] Pulmonology [address] [place] [address] Dean Stephenson MD [address] [place] [address] Mild intermittent asthma without complication (Primary Dx); SANTI (obstructive sleep apnea) Social History Tobacco Use Types Packs/Day Years [...] Sign Reading Time Taken Comments Blood Pressure 141/77 01/07/2022 12:59 PM CDT Pulse 61 01/07/2022 12:59 PM CDT Temperature - - Respiratory Rate 18 01/07/2022 12:59 PM CDT Oxygen Saturation 99% 01/07/2022 12:59 PM CDT 4L Inhaled Oxygen Concentration - - Weight - - Height 157.5 cm (5' 2 ) 01/07/2022 12:59 PM CDT Body Mass Index - - documented in this encounter Ordered Prescriptions Prescription Sig Dispense Quantity Refills Last Filled Start Date End Date albuterol HFA (PROVENTIL HFA,VENTOLIN HFA,PROAIR HFA) 90 mcg/actuation inhalerIndications :Mild intermittent asthma without complication Inhale 2 puffs every 6 (six) hours as needed for wheezing Fill per patient's formulary 1 each 3 01/07/2022 2 documented in this encounter Progress Notes * Dean Stephenson MD - 01/07/2022 1:15 PM CDT Images from the original note were not included. Progress Note Patient: Celestina Ewing ( - 1950) is a 71 y.o. female. Visit Date: 01/07/2022 Chief Complaint Patient presents with ??? Follow-up History of Present Illness: The patient is a 71-year-old female that I last saw several years ago for SANTI. She was intolerant of CPAP and has not used CPAP for a long period of time. She developed a COVID pneumonia in June 2021 and had a complicated hospital course and underwent a left [id number] amputation. She denies coughing or sputum production. She has been wheezing and has some shortness of breath and is currently on oxygen at 4 liters/minute via nasal cannula. She never smoked but all of her family smoked. 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 She was told that she had asthma by 1 of her former primary care physician's. She is currently using Combivent 1 puff q.i.d. and Flovent b.i.d. and she has an albuterol inhaler to use if necessary. She is not in favor of using a nebulizer at this time. Past Medical History: Past Medical History: Diagnosis Date ??? Asthma ??? COPD (chronic obstructive pulmonary disease) ([facility]/HCC) ([facility]) ??? Heart murmur ??? Hyperlipidemia ??? Hypertension ??? Shortness of breath ??? Sleep apnea Surgical History: Past Surgical History: Procedure Laterality Date ??? ACHILLES TENDON LENGTHENING Left 09/1991 ??? ANKLE SURGERY Left 2015 ??? APPENDECTOMY 1973 ??? BILATERAL SALPINGOOPHORECTOMY 12/1998 ??? BREAST BIOPSY Right 2000 and 2006 ??? DILATION AND CURETTAGE OF UTERUS 10/1986 ??? HYSTERECTOMY 05/1995 ??? NASAL SEPTUM SURGERY 1972 ??? ORIF TIBIA FRACTURE Left 06/28/2019 ??? REPLACEMENT TOTAL KNEE Left multiple left knee surgeries, including 3 knee replacements ??? SHOULDER SURGERY Right 08/2009 ??? TOE FUSION Left 08/1994 Current Medications: Current Outpatient Medications Medication Sig Dispense Refill ??? Aerochamber Plus Flow-Vu spacer ??? albuterol HFA (PROVENTIL HFA,VENTOLIN HFA,PROAIR HFA) 90 mcg/actuation inhaler Inhale 2 puffs every 4 (four) hours as needed for shortness of breath. Indications: Asthma Attack ??? albuterol HFA (PROVENTIL HFA,VENTOLIN HFA,PROAIR HFA) 90 mcg/actuation inhaler Inhale 2 puffs every 6 (six) hours as needed for wheezing Fill per patient's formulary 1 each 3 ??? amLODIPine (NORVASC) 10 mg tablet Take 10 mg by mouth daily. Indications: high blood pressure ??? amoxicillin-clavulanate (AUGMENTIN) 875-125 mg per tablet ??? ascorbic acid (VITAMIN C) 500 mg tablet,chewable Take 1 tablet by mouth 2 (two) times a day ??? atorvastatin (LIPITOR) 10 mg tablet Take 1 tablet (10 mg total) by mouth nightly 1 tablet 0 ??? baclofen (LIORESAL) 5 mg tablet Take 0.5 tablets (2.5 mg total) by mouth 3 (three) times a day with meals 1 tablet 0 ??? busPIRone (BUSPAR) 5 mg tablet ??? cholecalciferol (VITAMIN D-3) 400 unit capsule Take 400 Units by mouth daily. Indications: Vitamin D deficiency ??? clindamycin (CLEOCIN) 150 mg capsule ??? clindamycin (CLEOCIN) 300 mg capsule ??? docusate sodium (COLACE) 100 mg capsule Take 100 mg by mouth daily. Indications: constipation ??? doxycycline hyclate 100 mg capsule ??? enoxaparin (LOVENOX) 40 mg/0.4 mL syringe ??? ergocalciferol (VITAMIN D) 50,000 unit capsule TAKE 1 CAPSULE BY MOUTH EVERY WEEK ON WEDNESDAY ??? famciclovir (FAMVIR) 250 mg tablet Take 250 mg by mouth 2 (two) times a day. Indications: Other(complete free text reason below), herpes ??? ferrous sulfate 325 mg (65 mg of elemental iron) tablet Take 325 mg by mouth daily ??? fluconazole (DIFLUCAN) 150 mg tablet ??? fluticasone propionate (FLONASE) 50 mcg/actuation nasal spray Administer 2 sprays into each nostril daily ??? fluticasone propionate (FLOVENT HFA) 110 mcg/actuation inhaler Inhale 2 puffs daily. Indications: Controller Medication for Asthma ??? furosemide (LASIX) 40 mg tablet Take 40 mg by mouth 2 (two) times a day. Indications: visible water retention ??? gabapentin (NEURONTIN) 400 mg capsule Take 1 capsule (400 mg total) by mouth every 8 (eight) hours 1 capsule 0 ??? ipratropium-albuteroL (DUO-NEB) 0.5-2.5 mg/3 mL nebulizer solution ??? lidocaine (LIDODERM) 5 % Place 1 patch on the skin daily ??? LORazepam (ATIVAN) 0.5 mg tablet Take 0.5 mg by mouth every 8 (eight) hours as needed for anxiety ??? losartan (COZAAR) 100 mg tablet ??? melatonin 5 mg tablet Take 5 mg by mouth nightly as needed ??? metoprolol (LOPRESSOR) 25 mg tablet Take 1 tablet (25 mg total) by mouth every 6 (six) hours 1 tablet 0 ??? Nyamyc powder ??? olmesartan (BENICAR) 40 mg tablet Take 40 mg by mouth daily. Indications: high blood pressure ??? ondansetron (ZOFRAN) 4 mg tablet ??? ondansetron ODT (ZOFRAN-ODT) 8 mg disintegrating tablet Take 1 tablet (8 mg total) by mouth every 8 (eight) hours as needed for nausea or vomiting 20 tablet 0 ??? oxyCODONE ER (OxyCONTIN) 10 mg 12 hr abuse-deterrent tablet Take 1 tablet (10 mg total) by mouth 2 (two) times a day 60 tablet 0 ??? oxyCODONE-acetaminophen (PERCOCET) 5-325 mg per tablet ??? pantoprazole DR (PROTONIX) 40 mg EC tablet Take 40 mg by mouth daily. Indications: Stress UlcerProphylaxis ??? predniSONE (DELTASONE) 20 mg tablet Take 40 mg by mouth daily ??? pregabalin (LYRICA) 150 mg capsule Take 150 mg by mouth 2 (two) times a day ??? primidone (MYSOLINE) 50 mg tablet ??? senna (SENOKOT) 8.6 mg tablet Take 1 tablet by mouth daily ??? vitamin E (AQUASOL E) 400 unit capsule Take 800 Units by mouth daily. Indications: deficiency of vitamin E ??? zolpidem (AMBIEN) 10 mg tablet ??? ramelteon (ROZEREM) 8 mg tablet Take 1 tablet (8 mg total) by mouth nightly 30 tablet 11 ??? spironolactone (ALDACTONE) 25 mg tablet Take 1 tablet (25 mg total) by mouth daily 30 tablet 11 No current facility-administered medications for this visit. Allergies: Allergies Allergen Reactions ??? Fish Containing Products Anaphylaxis ??? Barbiturates Unknown ??? Iodine Unknown ??? Latex Unknown ??? [place]-3 Fatty Acids Unknown ??? Other Unknown seafood ??? Sulfa (Sulfonamide Antibiotics) Unknown ??? Valium [Diazepam] Unknown Family History: Family History Problem Relation Age of Onset ??? Heart disease Mother ??? Diabetes Mother ??? Emphysema Father ??? Diabetes Father ??? Diabetes Brother Social History: Social History Socioeconomic History ??? Marital status: Legally Tobacco Use ??? Smoking status: Never Smoker ??? Smokeless tobacco: Never Used ??? Tobacco comment: Patient does not smoke Substance and Sexual Activity ??? Alcohol use: Not Currently ??? Drug use: Never Review of Systems: Review of Systems Constitutional: Positive for fever. Negative for appetite change and unexpected weight change. HENT: Positive for rhinorrhea. Negative for sinus pressure, sinus pain, sore throat and tinnitus. Respiratory: Positive for shortness of breath and wheezing. Negative for cough. Cardiovascular: Negative for chest pain, palpitations and leg swelling. Gastrointestinal: Positive for nausea. Negative for abdominal pain and diarrhea. Genitourinary: Negative for hematuria. Musculoskeletal: Positive for arthralgias and back pain. Negative for myalgias. Skin: Negative for color change. Allergic/Immunologic: Positive for food allergies. Negative for environmental allergies. Seafood Neurological: Positive for dizziness. Negative for light-headedness. Physical Exam: Vitals: 01/07/22 1259 BP: 141/77 Pulse: 61 Resp: 18 SpO2: 99% Height: 157.5 cm (5' 2 ) Physical Exam Constitutional: Appearance: She is well-developed. HENT: Head: Normocephalic and atraumatic. Eyes: Pupils: Pupils are equal, round, and reactive to light. Cardiovascular: Rate and Rhythm: Normal rate and regular rhythm. Pulmonary: Effort: Pulmonary effort is normal. Breath sounds: Normal breath sounds. Abdominal: General: Bowel sounds are normal. Palpations: Abdomen is soft. Musculoskeletal: General: Normal range of motion. Cervical back: Normal range of motion and neck supple. Right lower leg: Edema present. Comments: S/p Left AKA--- 1+ RLE edema Skin: General: Skin is warm and dry. Neurological: Mental Status: She is alert and oriented to person, place, and time. Data Reviewed Images: No results found. Assessment and Plan: Diagnoses and all orders for this visit: Mild intermittent asthma without complication (Primary) Assessment & Plan: The patient carries a history of asthma. [...] a room air ABG to be performed. Orders: - Pulmonary Function Test -[facility]; Bedside PFT/Flow Vol Loop (FVL); Future - albuterol HFA (PROVENTIL HFA,VENTOLIN HFA,PROAIR HFA) 90 mcg/actuation inhaler; Inhale 2 puffs every 6 (six) hours as needed for wheezing Fill per patient's formulary - XR Chest Pa Lateral 2 Views; Future SANTI (obstructive sleep apnea) Assessment & Plan: She is intolerant of CPAP. Rendering Provider & Department: Dean Stephenson MD documented in this encounter Miscellaneous Notes * Assessment & Plan Note - Dean Stephenson MD - 01/07/2022 4:26 PM CDT Associated Problem(s): SANTI (obstructive sleep apnea) She is intolerant of CPAP. * Assessment & Plan Note - Dean Stephenson MD - 01/07/2022 4:25 PM CDT Associated Problem(s): Mild intermittent asthma The patient carries a history of asthma. [...] a room air ABG to be performed. documented in this encounter Plan of Treatment Not on file documented as of this encounter Results * (ABNORMAL) Pulmonary Function Test - (02/26/2022 1:40 PM CDT) FVC PRE 2.16 2.03 - 3.52 L 02/26/2022 1:[address] [facility] FEV1 PRE 1.80 1.58 - 2.74 L 02/26/2022 1:[address] [facility] [id number] 83.44 65.17 - 91.55 % 02/26/2022 1:[address] [facility] BDP07-77% PRE 2.53 0.87 - 2.85 L/s 02/26/2022 1:[address] [facility] PEF PRE 5.14 4.14 - 7.10 L/s 02/26/2022 1:[address] [facility] FET 100% PRE 13.26 sec 02/26/2022 1:[address] [facility] FIVC PRE 1.49(L) 1.83 - 3.21 L 02/26/2022 1:[address] [facility] FIF50% PRE 1.95 L/s 02/26/2022 1:[address] [facility] Anatomical Region Laterality Modality PFT 02/26/2022 [...] Stephenson MD PFT ORDERABLES Final Res ult * XR Chest Pa Lateral 2 Views [...] 8:53 AM - Electronically signed by ??Gerson Terrell D.O. Gerson Terrell D.O. AP D: ??01/08/2022 8:53 AM T: Report ID: [id number] Reading Location: ??[id number] Procedure Note Gerson Terrell DO - 01/08/2022 [...] 8:53 AM - Electronically signed by Gerson Terrell D.O. Gerson Terrell D.O. AP T: Report ID: [id number] Reading Location: [id number] Dean Stephenson MD IMG XR PROCEDURES Final R esult documented in this encounter Visit Diagnoses Diagnosis Mild intermittent asthma without complication- Primary SANTI (obstructive sleep apnea) Obstructive sleep apnea (adult) (pediatric) Mild intermittent asthma without complication Mild intermittent asthma without complication documented in this encounter Historical Medications * This list may reflect changes made after this encounter. pregabalin (LYRICA) 150 mg capsule Take 150 mg by mouth 2 (two) times a day 2021 predniSONE (DELTASONE) 20 mg tablet Take 40 mg by mouth daily 10/27/2021 melatonin 5 mg tablet Take 5 mg by mouth nightly as needed fluconazole (DIFLUCAN) 150 mg tablet 01/20/2021 ergocalciferol (VITAMIN D) 50,000 unit capsule TAKE 1 CAPSULE BY MOUTH EVERY WEEK ON Wednesday11/03/2021 senna (SENOKOT) 8.6 mg tablet Take 1 tablet by mouth daily 04/15/2022 ferrous sulfate 325 mg (65 mg of elemental iron) tablet Take 325 mg by mouth daily 04/15/2022 ascorbic acid (VITAMIN C) 500 mg tablet,chewable Take 1 tablet by mouth 2 (two) times a day 04/15/2022 added in this encounter Care Teams Receiver/Laborer Relationship Specialty Start Date End Date Hernando Velasquez MD [address] [place] [address] PCP - General Internal Medicine 01/07/22 Jose Manuel Gruber MD Fellow Orthopedic Surgery 07/06/19 documented as of this encounter
--- OUTSIDE RECORDS SUMMARY | 2024-08-13 04:58 | XMS_ITS | Encounter Summary ---
Author Organization [facility] Address [address] [place] [address] Care Team Providers Care Credit And Collection Manager Name Role Phone Jose Manuel Gruber MD Unavailable [phone] Hernando Velasquez MD Primary Care Provider [phone] Reason for Visit * Reason Comments Follow-up Encounter Details Date Type Department Care Team (Late st Contact Info) Description 07/08/2022 2:45 PM SIGN DESIGNER Office Visit [facility] Pulmonology [address] [place] [address] Dean Stephenson MD [address] [facility] [address] [place] [address] Mild intermittent asthma without complication (Primary Dx); SANTI (obstructive sleep apnea); Exercise hypoxemia Social History Tobacco Use Types Packs/Day Years [...] Comments Blood Pressure 153/76 07/08/2022 2:24 PM SIGN DESIGNER Pulse 71 07/08/2022 2:24 PM SIGN DESIGNER Temperature - - Respiratory Rate 18 07/08/2022 2:24 PM SIGN DESIGNER Oxygen Saturation 96% 07/08/2022 2:24 PM SIGN DESIGNER Inhaled Oxygen Concentration - - Weight - - Height - - Body Mass Index - - documented in this encounter Progress Notes * Dean Stephenson MD - 07/08/2022 2:45 PM CST Images from the original note were not included. Progress Note Patient: Celestina Ewing ( - 1950) is a 71 y.o. female. Visit Date: 07/08/2022 History of Present Illness: The patient is a pleasant 71-year-old female with history of asthma, SANTI and exercise-induced hypoxemia that returns for follow-up. She continues to have some dyspnea with exertion. She is using Flovent b.i.d. Combivent Respimat q.i.d. and albuterol once in the morning and p.r.n.. She continues to use oxygen at 4 liters/minute while she sleeps and she was intolerant of CPAP. Her saturations are 96% today on 2 L of oxygen via nasal cannula while at rest. 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 Past Medical History: Past Medical History: Diagnosis Date Asthma COPD (chronic obstructive pulmonary disease) (CMS/HCC) ([facility]) Heart murmur Hyperlipidemia Hypertension Shortness of breath Sleep apnea Surgical History: Past Surgical History: Procedure Laterality Date ACHILLES TENDON LENGTHENING Left 09/1991 ANKLE SURGERY Left 2016 APPENDECTOMY 1973 BILATERAL SALPINGOOPHORECTOMY 12/1998 BREAST BIOPSY Right 2000 and 2006 DILATION AND CURETTAGE OF UTERUS 10/1986 HYSTERECTOMY 05/1995 LEG AMPUTATION Left 06/2021 NASAL SEPTUM SURGERY 1973 ORIF TIBIA FRACTURE Left 06/28/2019 REPLACEMENT TOTAL KNEE Left multiple left knee surgeries, including 3 knee replacements SHOULDER SURGERY Right 08/2009 TOE FUSION Left 08/1994 Current Medications: Current Outpatient Medications Medication Sig Dispense Refill Aerochamber Plus Flow-Vu spacer albuterol HFA (PROVENTIL HFA,VENTOLIN HFA,PROAIR HFA) 90 mcg/actuation inhaler Inhale 2 puffs every4 (four) hours as needed for shortness of breath. Indications: Asthma Attack albuterol HFA (PROVENTIL HFA,VENTOLIN HFA,PROAIR HFA) 90 mcg/actuation inhaler INHALE 2 PUFFS BY MOUTH EVERY 6 HOURS NEEDED FOR WHEEZING 18 g 3 amLODIPine (NORVASC) 10 mg tablet Take 10 mg by mouth daily. Indications: high blood pressure atorvastatin (LIPITOR) 10 mg tablet Take 1 tablet (10 mg total) by mouth nightly 1 tablet 0 baclofen (LIORESAL) 10 mg tablet Take 10 mg by mouth 3 (three) times a day busPIRone (BUSPAR) 5 mg tablet cholecalciferol (VITAMIN D-3) 400 unit capsule Take 400 Units by mouth daily. Indications: Vitamin D deficiency docusate sodium (COLACE) 100 mg capsule Take 100 mg by mouth daily. Indications: constipation enoxaparin (LOVENOX) 40 mg/0.4 mL syringe ergocalciferol (VITAMIN D) 50,000 unit capsule TAKE 1 CAPSULE BY MOUTH EVERY WEEK ON WEDNESDAY famciclovir (FAMVIR) 250 mg tablet Take 250 mg by mouth 2 (two) times a day. Indications: Other (complete free text reason below), herpes fluticasone propionate (FLONASE) 50 mcg/actuation nasal spray Administer 2 sprays into each nostrildaily fluticasone propionate (FLOVENT HFA) 110 mcg/actuation inhaler Inhale 2 puffs daily. Indications: Controller Medication for Asthma furosemide (LASIX) 40 mg tablet Take 40 mg by mouth 2 (two) times a day. Indications: visible waterretention ipratropium-albuteroL (DUO-NEB) 0.5-2.5 mg/3 mL nebulizer solution lidocaine (LIDODERM) 5 % Place 1 patch on the skin daily LORazepam (ATIVAN) 0.5 mg tablet Take 0.5 mg by mouth every 8 (eight) hours as needed for anxiety losartan (COZAAR) 100 mg tablet melatonin 5 mg tablet Take 5 mg by mouth nightly as needed metoprolol (LOPRESSOR) 25 mg tablet Take 1 tablet (25 mg total) by mouth every 6 (six) hours (Patient taking differently: Take 100 mg by mouth 2 (two) times a day) 1 tablet 0 Nyamyc powder olmesartan (BENICAR) 40 mg tablet Take 40 mg by mouth daily. Indications: high blood pressure ondansetron (ZOFRAN) 4 mg tablet ondansetron ODT (ZOFRAN-ODT) 8 mg disintegrating tablet Take 1 tablet (8 mg total) by mouth every 8(eight) hours as needed for nausea or vomiting 20 tablet 0 oxyCODONE (ROXICODONE) 5 mg immediate release tablet Take by mouth oxyCODONE-acetaminophen (PERCOCET) 5-325 mg per tablet pantoprazole DR (PROTONIX) 40 mg EC tablet Take 40 mg by mouth daily. Indications: Stress Ulcer Prophylaxis predniSONE (DELTASONE) 20 mg tablet Take 40 mg by mouth daily pregabalin (LYRICA) 150 mg capsule Take 150 mg by mouth 2 (two) times a day primidone (MYSOLINE) 50 mg tablet vitamin E (AQUASOL E) 400 unit capsule Take 800 Units by mouth daily. Indications: deficiency of vitamin E baclofen (LIORESAL) 5 mg tablet Take 0.5 tablets (2.5 mg total) by mouth 3 (three) times a day withmeals (Patient not taking: Reported on 07/08/2022) 1 tablet 0 ciprofloxacin (CIPRO) 500 mg tablet Take 500 mg by mouth every 12 (twelve) hours (Patient not taking: Reported on 07/08/2022) fluconazole (DIFLUCAN) 150 mg tablet (Patient not taking: Reported on 07/08/2022) ramelteon (ROZEREM) 8 mg tablet Take 1 tablet (8 mg total) by mouth nightly 30 tablet 11 spironolactone (ALDACTONE) 25 mg tablet Take 1 tablet (25 mg total) by mouth daily 30 tablet 11 No current facility-administered medications for this visit. Allergies: Allergies Allergen Reactions Fish Containing Products Anaphylaxis Barbiturates Unknown and Other (See comments) Menthol Hives, Itching and Rash Latex Unknown Other Unknown seafood Diazepam Unknown and Other (See comments) Iodine Unknown and Other (See comments) [place]-3 Fatty Acids Unknown and Other (See comments) Sulfa (Sulfonamide Antibiotics) Unknown and Other (See comments) Family History: Family History Problem Relation Age of Onset Heart disease Mother Diabetes Mother Emphysema Father Diabetes Father Diabetes Brother Social History: Social History Tobacco Use Smoking status: Never Smokeless tobacco: Never Tobacco comments: Patient does not smoke Substance and Sexual Activity Drug use: Never Sexual activity: None Alcohol Use: Not on file Review of Systems: Review of Systems Constitutional: Negative for appetite change, fever and unexpected weight change. HENT: Positive for rhinorrhea. Negative for sinus pressure, sinus pain, sore throat and tinnitus. Respiratory: Positive for shortness of breath and wheezing. Negative for cough. Cardiovascular: Negative for chest pain, palpitations and leg swelling. Gastrointestinal: Negative for abdominal pain, diarrhea and nausea. Genitourinary: Negative for hematuria. Musculoskeletal: Positive for arthralgias and back pain. Negative for myalgias. Skin: Negative for color change. Allergic/Immunologic: Positive for food allergies. Negative for environmental allergies. Fish/Iodine Neurological: Negative for dizziness and light-headedness. Physical Exam: Vitals: 07/08/22 1424 BP: 153/76 BP Location: Left arm Patient Position: Sitting Pulse: 71 Resp: 18 SpO2: 96% Physical Exam Constitutional: Appearance: She is well-developed. [...] Normal range of motion and neck supple. Skin: General: Skin is warm and dry. Neurological: Mental Status: She is alert and oriented to person, place, and time. Data Reviewed Images: No results found. Assessment and Plan: Diagnoses and all orders for this visit: Mild intermittent asthma without complication (Primary) Assessment & Plan: The patient does have some cough with deep inspiration. Overall, she is doing well with Flovent, Combivent and albuterol MDI. SANTI (obstructive sleep apnea) Assessment & Plan: She was intolerant of CPAP therapy and is currently using oxygen at 4 liters/minute when she sleepsvia nasal cannula Exercise hypoxemia Assessment & Plan: I did recommend that the patient decrease her oxygen to 1 liter/minute at rest during the day as long as saturations are 92% or above. I did tell her it was acceptable to increase the oxygen flow rate when she exerts herself Rendering Provider & Department: Dean Stephenson MD DESIGNER documented in this encounter Miscellaneous Notes * Assessment & Plan Note - Dean Stephenson MD - 07/08/2022 2:39 PM SIGN DESIGNER Associated Problem(s): SANTI (obstructive sleep apnea) She was intolerant of CPAP therapy and is currently using oxygen at 4 liters/minute when she sleepsvia nasal cannula DESIGNER * Assessment & Plan Note - Dean Stephenson MD - 07/08/2022 2:39 PM SIGN DESIGNER Associated Problem(s): Mild intermittent asthma The patient does have some cough with deep inspiration. Overall, she is doing well with Flovent, Combivent and albuterol MDI. DESIGNER * Assessment & Plan Note - Dean Stephenson MD - 07/08/2022 2:38 PM SIGN DESIGNER Associated Problem(s): Exercise hypoxemia I did recommend that the patient decrease her oxygen to 1 liter/minute at rest during the day as long as saturations are 92% or above. I did tell her it was acceptable to increase the oxygen flow rate when she exerts herself DESIGNER documented in this encounter Plan of Treatment Not on file documented as of this encounter Visit Diagnoses Diagnosis Mild intermittent asthma without complication- Primary SANTI (obstructive sleep apnea) Obstructive sleep apnea (adult) (pediatric) Exercise hypoxemia documented in this encounter Historical Medications * This list may reflect changes made after this encounter. ciprofloxacin (CIPRO) 500 mg tablet Take 500 mg by mouth every 12 (twelve) hours 06/23/2022 oxyCODONE (ROXICODONE) 5 mg immediate release tablet Take by mouth 06/27/2022 added in this encounter Care Teams Credit And Collection Manager Relationship Specialty Start Date End Date Hernando Velasquez MD [address] [place] [address] PCP - General Internal Medicine 01/07/22 Jose Manuel Gruber MD Fellow Orthopedic Surgery 07/06/19 documented as of this encounter
--- OUTSIDE RECORDS SUMMARY | 2024-08-13 04:58 | XMS_ITS | Encounter Summary ---
Author Organization [facility] Address [address] [place] [address] Care Team Providers Care Fermentation Scientist Name Role Phone Jose Manuel Gruber MD Unavailable [phone] Hernando Velasquez MD Primary Care Provider [phone] Reason for Referral * Durable Medical Equipment (Routine) - Closed Specialty Diagnoses / Procedures Referred By Contac t Referred To Contact Diagnoses Mild intermittent asthma without complication Procedures Miscellaneous DME Dean Stephenson MD [address] [place] [address] Phone: tel: fax: Referral ID Status Reason Start Date Expiration Date Visits Re quested Visits Authorized [id number] Closed 03/03/2022 04/02/2023 1 1 Reason for Visit * Reason Onset Date Comments DME order 03/03/2022 Encounter Details Date Type Department Care Team (Late st Contact Info) Description 03/03/2022 Telephone [facility] Pulmonary [address] [place] [address] Dean Stephenson MD [address] [place] [address] DME order Social History Tobacco Use Types Packs/Day Years [...] encounter Miscellaneous Notes * Telephone Encounter - Greer Ch MA - 03/03/2022 1:49 PM CDT Order faxed to [facility] * Telephone Encounter - Greer Ch MA - 03/03/2022 12:20 PM CDT Patient called and said she was in a group home for 2 years, but is home now. She is needing order for new hose to go to her oxygen tanks. She would like order sent to [facility]. LDOV: 01/07/22 note reads that she is to continue use of oxygen at 4 liters via nasal cannula. Informed her we would send them order by end of day. documented in this encounter Plan of Treatment Not on file documented as of this encounter Visit Diagnoses Diagnosis Mild intermittent asthma without complication- Primary documented in this encounter Orders General Supply Count Last Ordered Date First Or dered Date MISCELLANEOUS DME 1 03/03/2022 documented in this encounter Care Teams Fermentation Scientist Relationship Specialty Start Date End Date Hernando Velasquez MD [address] [place] [address] PCP - General Internal Medicine 01/07/22 Jose Manuel Gruber MD Fellow Orthopedic Surgery 07/06/19 documented as of this encounter
--- OUTSIDE RECORDS SUMMARY | 2024-08-13 04:58 | XMS_ITS | Encounter Summary ---
Author Organization [facility] Address [address] [place] [address] Care Team Providers Care Rod Finisher Name Role Phone Jose Manuel Gruber MD Unavailable [phone] Hernando Velasquez MD Primary Care Provider [phone] Reason for Visit * Reason Comments Follow-up Encounter Details Date Type Department Care Team (Late st Contact Info) Description 04/15/2022 2:15 PM CDT Office Visit [facility] Pulmonology [address] [place] [address] Lizette Ahn, TRAIN STATION SERVER [address] [facility] [address] [place], [place] [id number] Other asthma (Primary Dx); SANTI (obstructive sleep apnea); Exercise [...] Sign Reading Time Taken Comments Blood Pressure 166/85 04/15/2022 2:28 PM CDT Pulse 77 04/15/2022 2:28 PM CDT Temperature - - Respiratory Rate 18 04/15/2022 2:28 PM CDT Oxygen Saturation 97% 04/15/2022 2:28 PM CDT 4 Liters Inhaled Oxygen Concentration - - Weight - - Height 157.5 cm (5' 2 ) 04/15/2022 2:28 PM CDT Body Mass Index - - documented in this encounter Progress Notes * Lizette Ahn, YISSEL - 04/15/2022 2:15 PM CDT Images from the original note were not included. Patient ID: Celestina Ewing is a 71 y.o. female. HPI. Patient is a 71 y.o. female returns for a follow-up of asthma and SANTI and nocturnal hypoxemia.The patient did complete a pulmonary function test on March 03, 2022. The results are below and were shared with the patient. Patient completed ABG on room air on March 19, 2022. The patient's pH was 7.37, pCO2 was 49, PaO2 was 73 and bicarb was 28. The patient did complete a chest x-ray on January 07, 2022. The results are below and were shared with the patient. The patient states that she is using 4 L of oxygen during the day. The patient continues to use, move of at 4 times a day. She is usingFlovent twice a day. The patient states she does use albuterol in the morning. Patient states she does have an occasional cough that is nonproductive. Patient feels short of breath with activity. Patient denies wheezing. Chief Complaint Patient presents with Follow-up Current Medications: Outpatient Encounter Medications as of 04/15/2022 Medication Sig Dispense Refill Aerochamber Plus Flow-Vu [...] by mouth 3 (three) times a day baclofen (LIORESAL) 5 mg tablet Take 0.5 tablets (2.5 mg total) by mouth 3 (three) times a day withmeals 1 tablet 0 busPIRone (BUSPAR) 5 mg tablet cholecalciferol (VITAMIN [...] below), herpes fluconazole (DIFLUCAN) 150 mg tablet fluticasone propionate (FLONASE) 50 mcg/actuation nasal spray [...] every 6 (six) hours 1 tablet 0 Nyamyc powder olmesartan (BENICAR) 40 mg tablet Take 40 mg by mouth daily. Indications: high blood pressure ondansetron (ZOFRAN) 4 mg tablet ondansetron ODT (ZOFRAN-ODT) 8 mg disintegrating tablet Take 1 tablet (8 mg total) by mouth every 8(eight) hours as needed for nausea or vomiting 20 tablet 0 oxyCODONE-acetaminophen (PERCOCET) 5-325 mg per tablet pantoprazole [...] mouth daily. Indications: deficiency of vitamin E ramelteon (ROZEREM) 8 mg tablet Take 1 tablet (8 mg total) by mouth nightly 30 tablet 11 spironolactone (ALDACTONE) 25 mg tablet Take 1 tablet (25 mg total) by mouth daily 30 tablet 11 [DISCONTINUED] albuterol HFA (PROVENTIL HFA,VENTOLIN HFA,PROAIR HFA) 90 mcg/actuation inhaler Inhale 2 puffs every 6 (six) hours as needed for wheezing Fill per patient's formulary 1 each 3 [DISCONTINUED] amoxicillin-clavulanate (AUGMENTIN) 875-125 mg per tablet [DISCONTINUED] ascorbic acid (VITAMIN C) 500 mg tablet,chewable Take 1 tablet by mouth 2 (two) times a day [DISCONTINUED] clindamycin (CLEOCIN) 150 mg capsule [DISCONTINUED] clindamycin (CLEOCIN) 300 mg capsule [DISCONTINUED] doxycycline hyclate 100 mg capsule [DISCONTINUED] ferrous sulfate 325 mg (65 mg of elemental iron) tablet Take 325 mg by mouth daily [DISCONTINUED] gabapentin (NEURONTIN) 400 mg capsule Take 1 capsule (400 mg total) by mouth every 8(eight) hours 1 capsule 0 [DISCONTINUED] oxyCODONE ER (OxyCONTIN) 10 mg 12 hr abuse-deterrent tablet Take 1 tablet (10 mg total) by mouth 2 (two) times a day 60 tablet 0 [DISCONTINUED] senna (SENOKOT) 8.6 mg tablet Take 1 tablet by mouth daily [DISCONTINUED] zolpidem (AMBIEN) 10 mg tablet No facility-administered encounter medications on file as of 04/15/2022. Review of Systems Constitutional: Negative for fever. HENT: Negative for tinnitus. Eyes: Negative for visual disturbance. Respiratory: Positive for shortness of breath. Negative for cough and wheezing. Cardiovascular: Negative for chest pain. Gastrointestinal: Negative for diarrhea, nausea and vomiting. Skin: Negative for rash. Neurological: Negative for dizziness. BP 166/85 (BP Location: Right arm, Patient Position: Sitting) Pulse 77 Resp 18 Ht 157.5 cm (5' 2 ) SpO2 97% Comment: 4 Liters BMI 36.03 kg/m?? Physical Exam Constitutional: General: She is not in acute distress. HENT: Mouth/Throat: Pharynx: No oropharyngeal exudate. Eyes: Pupils: Pupils are equal, round, and reactive to light. Cardiovascular: Rate and Rhythm: Normal rate and regular rhythm. Pulmonary: Effort: Pulmonary effort is normal. Breath sounds: Normal breath sounds. No wheezing. Abdominal: Palpations: Abdomen is soft. Musculoskeletal: Cervical back: Normal range of motion. Imagin01/08/22 cxr IMPRESSION: Lung volumes are small with bronchovascular crowding. No definite focal pneumonic consolidation. 03/03/22 PFT IMPRESSION: 1. No evidence of obstruction 2. Cannot exclude restrictive ventilatory limitation without lung volumes 3. Compared with prior study on 01/23/2014 no significant change was found 4. ABG performed on 4 liters/minute of supplemental oxygen demonstrates respiratory acidosis and normal oxygenation Assessment & Plan: Diagnoses and all orders for this visit: Other asthma (Primary) Assessment & Plan: The patient carries a history of asthma. At this time, I will continue with the albuterol MDI on a p.r.n. basis and I have refilled this for her. She will also continue the Flovent and Combivent. SANTI (obstructive sleep apnea) Assessment & Plan: The patient is intolerant of of CPAP. The patient has been using 4 L of oxygen at night. Exercise hypoxemia Assessment & Plan: The patient was asked to decrease her oxygen down to 2 L. She is going to monitor her oxygen saturation and as long as her oxygen level stays above 92% keep the oxygen at 2 L. Patient verbalized understanding. At the next visit if she continues with oxygen saturations above 92% the oxygen can be decreased again. Return in about 3 months (around 07/15/2022). Lizette Ahn NP Cosigned by Dean Stephenson MD at 04/15/2022 3:40 PM CDT documented in this encounter Miscellaneous Notes * Assessment & Plan Note - Lizette Ahn NP - 04/15/2022 3:10 PM CDT Associated Problem(s): Exercise hypoxemia The patient was asked to decrease her oxygen down to 2 L. She is going to monitor her oxygen saturation and as long as her oxygen level stays above 92% keep the oxygen at 2 L. Patient verbalized understanding. At the next visit if she continues with oxygen saturations above 92% the oxygen can be decreased again. * Assessment & Plan Note - Lizette Ahn NP - 04/15/2022 3:06 PM CDT Associated Problem(s): SANTI (obstructive sleep apnea) The patient is intolerant of of CPAP. The patient has been using 4 L of oxygen at night. * Assessment & Plan Note - Lizette Ahn NP - 04/15/2022 3:06 PM CDT Associated Problem(s): Other asthma The patient carries a history of asthma. At this time, I will continue with the albuterol MDI on a p.r.n. basis and I have refilled this for her. She will also continue the Flovent and Combivent. documented in this encounter Plan of Treatment Not on file documented as of this encounter Visit Diagnoses Diagnosis Other asthma- Primary SANTI (obstructive sleep apnea) Obstructive sleep apnea (adult) (pediatric) Exercise hypoxemia documented in this encounter Discontinued Medications Medication Sig Discontinue Reason Start Date End Da te amoxicillin-clavulanate (AUGMENTIN) 875-125 mg per tablet 08/01/2020 04/15/2022 ascorbic acid (VITAMIN C) 500 mg tablet,chewable Take 1 tablet by mouth 2 (two) times a day 04/15/2022 clindamycin (CLEOCIN) 150 mg capsule 05/28/2020 04/15/2022 clindamycin (CLEOCIN) 300 mg capsule 05/27/2020 04/15/2022 doxycycline hyclate 100 mg capsule 06/25/2020 04/15/2022 ferrous sulfate 325 mg (65 mg of elemental iron) tablet Take 325 mg by mouth daily 04/15/2022 gabapentin (NEURONTIN) 400 mg capsule Take 1 capsule (400 mg total) by mouth every 8 (eight) hours 07/04/2019 04/15/2022 oxyCODONE ER (OxyCONTIN) 10 mg 12 hr abuse-deterrent tablet Take 1 tablet (10 mg total) by mouth 2 (two) times a day 07/12/2020 04/15/2022 senna (SENOKOT) 8.6 mg tablet Take 1 tablet by mouth daily 04/15/2022 zolpidem (AMBIEN) 10 mg tablet 10/01/2020 04/15/2022 documented as of this encounter Historical Medications * This list may reflect changes made after this encounter. baclofen (LIORESAL) 10 mg tablet Take 10 mg by mouth 3 (three) times a day 02/04/2022 added in this encounter Care Teams Rod Finisher Relationship Specialty Start Date End Date Hernando Velasquez MD [address] [place] [address] PCP - General Internal Medicine 01/07/22 Jose Manuel Gruber MD Fellow Orthopedic Surgery 07/06/19 documented as of this encounter
--- OUTSIDE RECORDS SUMMARY | 2024-08-13 04:58 | XMS_ITS ---
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) ACTIVE 03/23/2016 BIPOLAR DISORDER, UNSPECIFIED (F31.9 - ICD-10-CM) ACTI VE 12/05/2016 HYPEROSMOLALITY AND HYPERNATREMIA (E87.0 - ICD-10-CM) ACTIVE 12/05/2016 CHRONIC RESPIRATORY FAILURE, UNSPECIFIED WHETHER WITH HYPOXIA OR HYPERCAPNIA (J96.10 - ICD-10-CM) ACTIVE 12/05/2016 URINARY TRACT INFECTION, SIT E NOT SPECIFIED (N39.0 - ICD-10-CM) ACTIVE 12/05/2016 EDEMA, UNSPECIFIED (R60.9 - ICD-10-CM) ACTIVE GENERALIZED ANXIETY DISORDER (F41.1 - ICD-10-CM) ACTIV E 12/05/2016 MAJOR DEPRESSIVE DISORDER, R ECURRENT, UNSPECIFIED (F33.9 - ICD-10-CM) ACTIVE 12/05/2016 CONSTIPATION, UNSPECIFIED (K59.00 - ICD-10-CM) ACTIVE 04/30/2016 ENCOUNTER FOR OTHER SPECIFIE D AFTERCARE (Z51.89 - ICD-10-CM) ACTIVE 03/24/2016 MUSCLE WEAKNESS (GENERALIZED) (M62.81 - ICD-10-CM) ACT CHRISTINA 03/24/2016 OTHER CIRRHOSIS OF LIVER (K74.69 - ICD-10-CM) ACTIVE 03/23/2016 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) ACTIVE 03/23/2016 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) ACTIVE 03/23/2016 HYPO-OSMOLALITY AND HYPONATREMIA (E87.1 - ICD-10-CM) A CTIVE 03/23/2016 OTHER ASTHMA (J45.998 - ICD-10-CM) ACTIVE 2015 HYPERLIPIDEMIA, UNSPECIFIED (E78.5 - ICD-10-CM) ACTIVE 03/23/2016 GASTRO-ESOPHAGEAL REFLUX DIS EASE WITHOUT ESOPHAGITIS (K21.9 - ICD-10-CM) ACTIVE 03/23/2016 CATARACT IN DISEASES CLASSIF IED ELSEWHERE (H28 - ICD-10-CM) ACTIVE 03/23/2016 INSOMNIA, UNSPECIFIED (G47.00 - ICD-10-CM) ACTIVE 03/23/2016 IMPACTED CERUMEN, BILATERAL (H61.23 - ICD-10-CM) ACTIV E 03/23/2016 ESSENTIAL (PRIMARY) HYPERTENSION (I10 - ICD-10-CM) ACT CHRISTINA 03/23/2016 Results * Individual Tests: [facility]/[place], [place] Performed by: [employer] Value Range Date [place], [place] * 04/16/2017 09:00 am EDT * Individual Tests: [facility]/[place], [place] Performed by: [employer] Value Range Date [facility]/[place], [place] * 04/08/2017 09:00 am EDT * BASIC MET PNL INCL GFR (BMP) Performed by: [employer] Date CALCIUM 8.6 mg/dL 8.4-10.2 03/29/2017 02:1 7 pm EDT BUN/CREATININE RATIO 20 6-34 017 02:17 pm EDT CREATININE 0.6 mg/dL 0.6-1.3 03/29/2017 02:1 7 pm EDT GLUCOSE 77 03/29/2017 02:1 7 pm EDT GFR- 122 mL/min/1.73 m2 >60 0 03/29/2017 02:17 pm EDT [id number] 101 mL/min/1.73 m2 >60 03/29/2017 02:17 pm EDT POTASSIUM 4.2 mEq/L 3.5-5.3 03/29/2017 02:1 7 pm EDT BUN (UREA NITROGEN) 12 mg/dL 7-03/29/20 02:17 pm EDT SODIUM 128 mEq/L 135-145 03/29/2017 02:1 7 pm EDT CHLORIDE 86 mEq/L 96-110 03/29/2017 02:1 7 pm EDT CARBON DIOXIDE (CO2) 30 mEq/L 21- 017 02:17 pm EDT * Individual Tests: [facility] Performed by: [employer] Value Range Date [facility] [place], [place] SEE RESULT: 03/24/2017 09:00 am EDT * GLYCO-HGBA1C Performed by: [employer] Value Range Date GLYCOHEMOGLOBIN-HGBA1C 5.4 % 4.1-6.1 03/12 04:44 pm EDT eAG (Mean Glucose) 108 mg/dL <136 7 04:44 pm EDT * BASIC MET PNL INCL GFR (BMP) Performed by: [employer] Date CALCIUM 8.8 mg/dL 8.4-10.2 02/08/2017 03:1 3 pm EDT GLUCOSE 71 02/08/2017 03:1 3 pm EDT CREATININE 0.6 mg/dL 0.6-1.3 02/08/2017 03:1 3 pm EDT BUN/CREATININE RATIO 35 6-34 017 03:13 pm EDT [id number]-[id number] 101 mL/min/1.73 m2 >60 02/08/2017 03:13 pm EDT GFR- 122 mL/min/1.73 m2 >60 0 02/08/2017 03:13 pm EDT CHLORIDE 92 mEq/L 96-110 02/08/2017 03:1 3 pm EDT SODIUM 134 mEq/L 135-145 02/08/2017 03:1 3 pm EDT CARBON DIOXIDE (CO2) 33 mEq/L 21-33 017 03:13 pm EDT BUN (UREA NITROGEN) 21 mg/dL 7-02/09/20 03:13 pm EDT POTASSIUM 4.4 mEq/L 3.5-5.3 02/08/2017 03:1 3 pm EDT * BASIC MET PNL INCL GFR (BMP) Performed by: [employer] Value Range Date POTASSIUM 4.5 mEq/L 3.5-5.3 12/19/2016 05:0 9 pm EDT SODIUM 127 mEq/L 135-145 12/19/2016 05:0 9 pm EDT BUN (UREA NITROGEN) 23 mg/dL 7-25 12/20/19 17 05:09 pm EDT CARBON DIOXIDE (CO2) 27 mEq/L 21-33 017 05:09 pm EDT CHLORIDE 90 mEq/L 96-110 12/19/2016 05:0 9 pm EDT [id number]-GBQ-[id number] 72 mL/min/1.73 m2 >60 12/19/2016 05:09 pm EDT GFR- 87 mL/min/1.73 m2 >60 05:09 pm EDT BUN/CREATININE RATIO 29 6-34 017 05:09 pm EDT CREATININE 0.8 mg/dL 0.6-1.3 12/19/2016 05:0 9 pm EDT GLUCOSE 104 12/19/2016 05:0 9 pm EDT CALCIUM 8.3 mg/dL 8.4-10.2 12/19/2016 05:0 9 pm EDT * Individual Tests: BASIC MET PNL INCL GFR (BMP) / VALPROIC ACID Performed by: [employer] Value Range Date VALPROIC ACID 95 ug/mL 50-100 12/19/2016 05: 09 pm EDT * GLYCO-HGBA1C Performed by: [employer] Value Range Date eAG (Mean Glucose) 94 mg/dL <136 7 02:00 pm EDT * LIPID PROFILE w/calc LDL Performed by: [employer] Range Date VLDLc 24 mg/dL 5-40 12/12/2016 02:0 0 pm EDT * Individual Tests: CMP-COMPREHENSIVE METABOLIC PNL / LIPID PROFILE w/calc LDL / BILIRUBIN, DIRECT / GLYCO-HGBA1C / CBC W/DIFF / VITAMIN B12 / VITAMIN D 25-OH TOTAL / VALPROIC ACID Performed by: [employer] Date BILIRUBIN, DIRECT 0.1 mg/dL <0.4 12/12/2016 02:00 pm EDT * LIPID PROFILE w/calc LDL Performed by: [employer] Date LDLc/HDL RATIO 1.5 <4:1 12/12/2016 02 :00 pm EDT LDL CALCULATED 54 mg/dl <100 12/12/2016 02 :00 pm EDT * Individual Tests: CMP-COMPREHENSIVE METABOLIC PNL / LIPID PROFILE w/calc LDL / BILIRUBIN, DIRECT / GLYCO-HGBA1C / CBC W/DIFF / VITAMIN B12 / VITAMIN D 25-OH TOTAL / VALPROIC ACID Performed by: [employer] Value Range Date VITAMIN B12 314 pg/mL 211-911 12/12/2016 02:0 0 pm EDT * CMP-COMPREHENSIVE METABOLIC PNL Performed by: [employer] Component Value Range Date CALCIUM 8.8 mg/dL 8.4-10.2 12/12/2016 02:0 0 pm EDT * LIPID PROFILE w/calc LDL Performed by: [employer] Component Value Range Date CHOLESTEROL 114 mg/dL <200 12/12/2016 02:0 0 pm EDT * CMP-COMPREHENSIVE METABOLIC PNL Performed by: [employer] Component Value Range Date BILIRUBIN, TOTAL 0.3 mg/dL 0.2-1.2 12/12/2016 02:00 pm EDT * LIPID PROFILE w/calc LDL Performed by: [employer] Component Value Range Date HDL 36 mg/dL >50 12/12/2016 02:0 0 pm EDT TRIGLYCERIDE 118 mg/dL <150 12/12/2016 02:0 0 pm EDT * Individual Tests: CMP-COMPREHENSIVE METABOLIC PNL / LIPID PROFILE w/calc LDL / BILIRUBIN, DIRECT / GLYCO-HGBA1C / CBC W/DIFF / VITAMIN B12 / VITAMIN D 25-OH TOTAL / VALPROIC ACID Performed by: [employer] Value Range Date VITAMIN D, 25-OH TOTAL 10 >29 ng/mL 12/12 02:00 pm EDT VALPROIC ACID 102 ug/mL 50-100 12/12/2016 02: 00 pm EDT * CMP-COMPREHENSIVE METABOLIC PNL Performed by: [employer] Component Value Range Date GLUCOSE 65 12/12/2016 02:0 0 pm EDT CREATININE 0.7 mg/dL 0.6-1.3 12/12/2016 02:0 0 pm EDT * CBC W/DIFF Performed by: [facility] [place] [employer] Value Range Date MPV 7.8 fL 6.5-12.0 12/12/2016 02:0 0 pm EDT NEUTS (ABSOLUTE) 1.70 K/uL 1.50-7.60 12/12/2016 02:00 pm EDT EOS (ABSOLUTE) 0.40 K/uL 0.20-0.80 12/12/2016 02 :00 pm EDT MONOCYTES (ABSOLUTE) 1.00 K/uL 0.15-1.10 017 02:00 pm EDT * CMP-COMPREHENSIVE METABOLIC PNL Performed by: [employer] Range Date A/G RATIO 1.5 1.1-2.5 12/12/2016 02:0 0 pm EDT * GLYCO-HGBA1C Performed by: [employer] Value Range Date GLYCOHEMOGLOBIN-HGBA1C 4.9 % 4.1-6.1 12/12 02:00 pm EDT * CMP-COMPREHENSIVE METABOLIC PNL Performed by: [employer] Range Date BUN/CREATININE RATIO 31 6-34 017 02:00 pm EDT GFR- 102 mL/min/1.73 m2 >60 0 12/12/2016 02:00 pm EDT * CBC W/DIFF Performed by: [employer] Range Date MCV 92.7 fL 80.0-100.0 12/12/2016 02:0 0 pm EDT LYMPHS (ABSOLUTE) 2.90 K/uL 0.90-5.50 12/12/2016 02:00 pm EDT MONOCYTES 16.5 % 2.0-12.0 12/12/2016 02:0 0 pm EDT LYMPHS 48.2 % 13.0-48.0 12/12/2016 02:0 0 pm EDT BASO 0.7 % 0.0-2.0 12/12/2016 02:0 0 pm EDT EOS 6.5 % 0.0-8.0 12/12/2016 02:0 0 pm EDT * CMP-COMPREHENSIVE METABOLIC PNL Performed by: [employer] Value Range Date PROTEIN, TOTAL 5.5 g/dL 6.0-8.3 12/12/2016 02 :00 pm EDT ZSV-[id number]-[id number] 84 mL/min/1.73 m2 >60 12/12/2016 02:00 pm EDT * CBC W/DIFF Performed by: [employer] Value Range Date NEUTROPHILS 28.1 % 40.0-80.0 12/12/2016 02:0 0 pm EDT * CMP-COMPREHENSIVE METABOLIC PNL Performed by: [employer] Value Range Date CHLORIDE 90 mEq/L 96-110 12/12/2016 02:0 0 pm EDT CARBON DIOXIDE (CO2) 33 mEq/L 21-33 017 02:00 pm EDT BUN (UREA NITROGEN) 22 mg/dL 7-25 12/13/19 17 02:00 pm EDT SODIUM 130 mEq/L 135-145 12/12/2016 02:0 0 pm EDT POTASSIUM 4.5 mEq/L 3.5-5.3 12/12/2016 02:0 0 pm EDT * CBC W/DIFF Performed by: [employer] Value Range Date HEMOGLOBIN 11.1 g/dL 12.0-16.0 12/12/2016 02:0 0 pm EDT RBC 3.65 M/cmm 3.90-5.40 12/12/2016 02:0 0 pm EDT MCHC 32.7 g/dL 31.0-36.5 12/12/2016 02:0 0 pm EDT MCH 30.4 pg 26.0-35.0 12/12/2016 02:0 0 pm EDT HEMATOCRIT 33.8 % 36.0-48.0 12/12/2016 02:0 0 pm EDT WBC 6.1 K/cmm 4.5-10.8 12/12/2016 02:0 0 pm EDT PLATELET 131 K/cmm 150-450 12/12/2016 02:0 0 pm EDT * CMP-COMPREHENSIVE METABOLIC PNL Performed by: [employer] Value [employer] Date AST (SGOT) 12 IU/L 4-40 12/12/2016 02:0 0 pm EDT ALBUMIN 3.3 g/dL 3.5-5.5 12/12/2016 02:0 0 pm EDT ALT (SGPT) 6 IU/L 4-55 12/12/2016 02:0 0 pm EDT ALKALINE PHOS 46 IU/L 34-136 12/12/2016 02: 00 pm EDT * CBC W/DIFF Performed by: [employer] Value Range Date RDW 15.0 % 11.0-16.0 12/12/2016 02:0 0 pm EDT * Individual Tests: VALPROIC ACID Performed by: [employer] Value Range Date VALPROIC ACID 83.5 ug/mL 50-100 04/30/2016 09: 08 pm EDT * Individual Tests: VALPROIC ACID Performed by: [employer] Value Range Date VALPROIC ACID 31.0 ug/mL 50-100 04/08/2016 03: 03 pm EDT * BASIC MET PNL INCL GFR (BMP) Performed by: [employer] Value Range Date POTASSIUM 4.4 mEq/L 3.5-5.3 04/01/2016 05:1 5 pm EDT SODIUM 131 mEq/L 135-145 04/01/2016 05:1 5 pm EDT BUN (UREA NITROGEN) 28 mg/dL 7-25 04/01/20 16 05:15 pm EDT CARBON DIOXIDE (CO2) 25 mEq/L 21-33 016 05:15 pm EDT CHLORIDE 93 mEq/L 96-110 04/01/2016 05:1 5 pm EDT [id number] 72 mL/min/1.73 m2 >60 04/01/2016 05:15 pm EDT GFR- 88 mL/min/1.73 m2 >60 05:15 pm EDT BUN/CREATININE RATIO 35 6-34 016 05:15 pm EDT CREATININE 0.8 mg/dL 0.6-1.3 04/01/2016 05:1 5 pm EDT GLUCOSE 70 04/01/2016 05:1 5 pm EDT CALCIUM 8.3 mg/dL 8.4-10.2 04/01/2016 05:1 5 pm EDT * Individual Tests: CMP-COMPREHENSIVE METABOLIC PNL / LIPID PROFILE w/calc LDL / CBC W/DIFF / [id number] / TSH 3-UL / Free Valproic Acid (Depakote) Performed by: [employer] Value Range Date Free Valproic Acid (Depakote) 9.3 ug/mL 6.0-22.0 03/28/2016 02:00 pm EDT VITAMIN B12 351 pg/mL 211-911 03/28/2016 02:0 0 pm EDT * LIPID PROFILE w/calc LDL Performed by: [employer] Date LDL CALCULATED 51 mg/dl <100 03/28/2016 02 :00 pm EDT LDLc/HDL RATIO 1.5 <4:1 03/28/2016 02 :00 pm EDT VLDLc 48 mg/dL 5-40 03/28/2016 02:0 0 pm EDT TRIGLYCERIDE 241 mg/dL <150 03/28/2016 02:0 0 pm EDT HDL 34 mg/dL >50 03/28/2016 02:0 0 pm EDT * CMP-COMPREHENSIVE METABOLIC PNL Performed by: [employer] Value Range Date BILIRUBIN, TOTAL 0.4 mg/dL 0.2-1.2 03/28/2016 02:00 pm EDT * LIPID PROFILE w/calc LDL Performed by: [employer] Component Value Range Date CHOLESTEROL 133 mg/dL <200 03/28/2016 02:0 0 pm EDT * CMP-COMPREHENSIVE METABOLIC PNL Performed by: [employer] Value Range Date CALCIUM 8.6 mg/dL 8.4-10.2 03/28/2016 02:0 0 pm EDT GLUCOSE 78 03/28/2016 02:0 0 pm EDT * Individual Tests: CMP-COMPREHENSIVE METABOLIC PNL / LIPID PROFILE w/calc LDL / CBC W/DIFF / [id number] / TSH 3-UL / Free Valproic Acid (Depakote) Performed by: [employer] Component Value Range Date TSH 3-UL 5.022 uIU/mL 0.340-5.600 03/28/2016 02:0 0 pm EDT * CMP-COMPREHENSIVE METABOLIC PNL Performed by: [employer] Component Value Range Date CREATININE 1.0 mg/dL 0.6-1.3 03/28/2016 02:0 0 pm EDT * CBC W/DIFF Performed by: [employer] Value Range Date MPV 8.5 fL 6.5-12.0 03/28/2016 02:0 0 pm EDT * CMP-COMPREHENSIVE METABOLIC PNL Performed by: [employer] Value Range Date BUN/CREATININE RATIO 21 6-34 016 02:00 pm EDT A/G RATIO 1.4 1.1-2.5 03/28/2016 02:0 0 pm EDT * CBC W/DIFF Performed by: [employer] Range Date EOS (ABSOLUTE) 0.30 K/uL 0.20-0.80 03/28/2016 02 :00 pm EDT MONOCYTES (ABSOLUTE) 1.40 K/uL 0.15-1.10 016 02:00 pm EDT EOS 2.7 % 0.0-8.0 03/28/2016 02:0 0 pm EDT NEUTS (ABSOLUTE) 4.70 K/uL 1.50-7.60 03/28/2016 02:00 pm EDT LYMPHS 38.8 % 13.0-48.0 03/28/2016 02:0 0 pm EDT BASO 0.9 % 0.0-2.0 03/28/2016 02:0 0 pm EDT LYMPHS (ABSOLUTE) 4.10 K/uL 0.90-5.50 03/28/2016 02:00 pm EDT MONOCYTES 12.9 % 2.0-12.0 03/28/2016 02:0 0 pm EDT MCV 94.9 fL 80.0-100.0 03/28/2016 02:0 0 pm EDT * CMP-COMPREHENSIVE METABOLIC PNL Performed by: [employer] Range Date GFR- 68 mL/min/1.73 m2 >60 02:00 pm EDT [id number]-ZSH-[id number] 56 mL/min/1.73 m2 >60 03/28/2016 02:00 pm EDT * CBC W/DIFF Performed by: [employer] Value Range Date BASO (ABSOLUTE) 0.10 K/uL 0.00-0.30 03/28/2016 0 2:00 pm EDT RDW 13.0 % 11.0-16.0 03/28/2016 02:0 0 pm EDT NEUTROPHILS 44.7 % 40.0-80.0 03/28/2016 02:0 0 pm EDT * CMP-COMPREHENSIVE METABOLIC PNL Performed by: [employer] Value Range Date ALKALINE PHOS 50 IU/L 34-136 03/28/2016 02: 00 pm EDT ALT (SGPT) 13 IU/L 4-55 03/28/2016 02:0 0 pm EDT AST (SGOT) 17 IU/L 4-40 03/28/2016 02:0 0 pm EDT PROTEIN, TOTAL 6.2 g/dL 6.0-8.3 03/28/2016 02 :00 pm EDT ALBUMIN 3.6 g/dL 3.5-5.5 03/28/2016 02:0 0 pm EDT * CBC W/DIFF Performed by: [employer] Range Date PLATELET 239 K/cmm 150-450 03/28/2016 02:0 0 pm EDT WBC 10.5 K/cmm 4.5-10.8 03/28/2016 02:0 0 pm EDT * CMP-COMPREHENSIVE METABOLIC PNL Performed by: [employer] Value Range Date CHLORIDE 94 mEq/L 96-110 03/28/2016 02:0 0 pm EDT * CBC W/DIFF Performed by: [employer] Value Range Date MCHC 33.1 g/dL 31.0-36.5 03/28/2016 02:0 0 pm EDT HEMATOCRIT 36.4 % 36.0-48.0 03/28/2016 02:0 0 pm EDT MCH 31.4 pg 26.0-35.0 03/28/2016 02:0 0 pm EDT RBC 3.84 M/cmm 3.90-5.40 03/28/2016 02:0 0 pm EDT * CMP-COMPREHENSIVE METABOLIC PNL Performed by: [employer] Value Range Date BUN (UREA NITROGEN) 21 mg/dL 7-25 03/28/20 16 02:00 pm EDT CARBON DIOXIDE (CO2) 27 mEq/L 21-33 016 02:00 pm EDT POTASSIUM 3.7 mEq/L 3.5-5.3 03/28/2016 02:0 0 pm EDT SODIUM 134 mEq/L 135-145 03/28/2016 02:0 0 pm EDT * CBC W/DIFF Performed by: [employer] Range Date HEMOGLOBIN 12.1 g/dL 12.0-16.0 03/28/2016 02:0 0 pm EDT * CBC W/DIFF Performed by: [employer] Range Date HEMOGLOBIN 11.9 g/dL 12.0-16.0 03/25/2016 08:0 6 pm EDT * CMP-COMPREHENSIVE METABOLIC PNL Performed by: [employer] Value Range Date POTASSIUM 4.0 mEq/L 3.5-5.3 03/25/2016 08:0 6 pm EDT SODIUM 129 mEq/L 135-145 03/25/2016 08:0 6 pm EDT BUN (UREA NITROGEN) 19 mg/dL 7-25 03/25/20 16 08:06 pm EDT CARBON DIOXIDE (CO2) 28 mEq/L 21-33 016 08:06 pm EDT * CBC W/DIFF Performed by: [employer] Value Range Date RBC 3.74 M/cmm 3.90-5.40 03/25/2016 08:0 6 pm EDT MCHC 33.6 g/dL 31.0-36.5 03/25/2016 08:0 6 pm EDT MCH 31.8 pg 26.0-35.0 03/25/2016 08:0 6 pm EDT * CMP-COMPREHENSIVE METABOLIC PNL Performed by: [employer] Range Date CHLORIDE 92 mEq/L 96-110 03/25/2016 08:0 6 pm EDT * CBC W/DIFF Performed by: [employer] Value Range Date HEMATOCRIT 35.3 % 36.0-48.0 03/25/2016 08:0 6 pm EDT WBC 8.8 K/cmm 4.5-10.8 03/25/2016 08:0 6 pm EDT * CMP-COMPREHENSIVE METABOLIC PNL Performed by: [employer] Value Range Date ALT (SGPT) 10 IU/L 4-55 03/25/2016 08:0 6 pm EDT * CBC W/DIFF Performed by: [employer] Value Range Date PLATELET 231 K/cmm 150-450 03/25/2016 08:0 6 pm EDT * CMP-COMPREHENSIVE METABOLIC PNL Performed by: [employer] Value Range Date AST (SGOT) 23 IU/L 4-40 03/25/2016 08:0 6 pm EDT ALBUMIN 3.4 g/dL 3.5-5.5 03/25/2016 08:0 6 pm EDT ALKALINE PHOS 50 IU/L 34-136 03/25/2016 08: 06 pm EDT PROTEIN, TOTAL 6.0 g/dL 6.0-8.3 03/25/2016 08 :06 pm EDT * CBC W/DIFF Performed by: [employer] Value Range Date RDW 13.4 % 11.0-16.0 03/25/2016 08:0 6 pm EDT NEUTROPHILS 53.4 % 40.0-80.0 03/25/2016 08:0 6 pm EDT BASO (ABSOLUTE) 0.10 K/uL 0.00-0.30 03/25/2016 0 8:06 pm EDT * CMP-COMPREHENSIVE METABOLIC PNL Performed by: [employer] Range Date VPU-YOL-PXGBKRA 72 mL/min/1.73 m2 >60 03/25/2016 08:06 pm EDT GFR- 88 mL/min/1.73 m2 >60 08:06 pm EDT * CBC W/DIFF Performed by: [employer] Value Range Date MCV 94.5 fL 80.0-100.0 03/25/2016 08:0 6 pm EDT LYMPHS (ABSOLUTE) 2.70 K/uL 0.90-5.50 03/25/2016 08:06 pm EDT MONOCYTES 13.7 % 2.0-12.0 03/25/2016 08:0 6 pm EDT LYMPHS 30.4 % 13.0-48.0 03/25/2016 08:0 6 pm EDT BASO 0.8 % 0.0-2.0 03/25/2016 08:0 6 pm EDT EOS 1.7 % 0.0-8.0 03/25/2016 08:0 6 pm EDT NEUTS (ABSOLUTE) 4.70 K/uL 1.50-7.60 03/25/2016 08:06 pm EDT EOS (ABSOLUTE) 0.10 K/uL 0.20-0.80 03/25/2016 08 :06 pm EDT MONOCYTES (ABSOLUTE) 1.20 K/uL 0.15-1.10 016 08:06 pm EDT * CMP-COMPREHENSIVE METABOLIC PNL Performed by: [employer] Value Range Date BUN/CREATININE RATIO 24 6-34 016 08:06 pm EDT A/G RATIO 1.3 1.1-2.5 03/25/2016 08:0 6 pm EDT * Individual Tests: CMP-COMPREHENSIVE METABOLIC PNL / LIPID PROFILE w/calc LDL / CBC W/DIFF / [id number] / TSH 3-UL / VALPROIC ACID Performed by: [employer] Range Date TSH 3-UL 3.106 uIU/mL 0.340-5.600 03/25/2016 08:0 6 pm EDT * CBC W/DIFF Performed by: [employer] Value Range Date MPV 8.4 fL 6.5-12.0 03/25/2016 08:0 6 pm EDT * CMP-COMPREHENSIVE METABOLIC PNL Performed by: [employer] Value Range Date CREATININE 0.8 mg/dL 0.6-1.3 03/25/2016 08:0 6 pm EDT GLUCOSE 138 03/25/2016 08:0 6 pm EDT CALCIUM 8.4 mg/dL 8.4-10.2 03/25/2016 08:0 6 pm EDT BILIRUBIN, TOTAL 0.5 mg/dL 0.2-1.2 03/25/2016 08:06 pm EDT * LIPID PROFILE w/calc LDL Performed by: [employer] Value Range Date CHOLESTEROL 141 mg/dL <200 03/25/2016 08:0 6 pm EDT TRIGLYCERIDE 262 mg/dL <150 03/25/2016 08:0 6 pm EDT HDL 32 mg/dL >50 03/25/2016 08:0 6 pm EDT LDL CALCULATED 57 mg/dl <100 03/25/2016 08 :06 pm EDT LDLc/HDL RATIO 1.8 <4:1 03/25/2016 08 :06 pm EDT * Individual Tests: CMP-COMPREHENSIVE METABOLIC PNL / LIPID PROFILE w/calc LDL / CBC W/DIFF / [id number] / TSH 3-UL / VALPROIC ACID Performed by: [employer] Value Range Date VITAMIN B12 360 pg/mL 211-911 03/25/2016 08:0 6 pm EDT * LIPID PROFILE w/calc LDL Performed by: [employer] Value Range Date VLDLc 52 mg/dL 5-40 03/25/2016 08:0 6 pm EDT * Individual Tests: CMP-COMPREHENSIVE METABOLIC PNL / LIPID PROFILE w/calc LDL / CBC W/DIFF / [id number] / TSH 3-UL / VALPROIC ACID Performed by: [facility] [place] New [employer] Value Range Date VALPROIC ACID 37.7 ug/mL 50-100 03/25/2016 08: 06 pm EDT Encounters Encounter Performer Performer Role Encounter Diagnoses Location Date Discharge - Discharged to home or self care - Community - Community [facility] [place] 03/23/2016 08:57 pm EDT - 06/27/2016 12:20 am EST Discharge - Discharged to home or self care - Home - Private home/apt. with home health services [facility] 12/05/2016 06:06 pm EDT - 05/29/2017 07:11 pm EDT Immunizations Vaccine Date Influenza 04/26/2017 01:00 am EDT Influenza 05/20/2016 01:00 am EDT Pneumovax Dose 1 10/24/2015 01:00 am EDT TB 1 Step [place] (PPD) 12/06/2016 01:00 am EDT Social History
--- OUTSIDE RECORDS SUMMARY | 2024-08-13 04:58 | XMS_ITS | Referral Summary ---
Author Organization [facility] Healthcare Address [address] [place] [address] Care Team Providers Care Geoscience Technician Name Role Phone Jose Manuel Gruber MD Unavailable [phone] Hernando Velasquez MD Primary Care Provider [phone] Allergies Active Allergy Reactions Criticality Noted Date Comments Barbiturates Unknown,Other (See comments) Medium 09/13/2006 Diazepam Unknown,Other (See comments) Low 09/13/2006 Fish Containing Products Anaphylaxis High 07/05/2019 Iodine Unknown,Other (See comments) Low 09/13/2006 Latex Unknown 06/28/2019 Menthol Hives,Itching,Rash Medium 07/08/2022 [place]-3 Fatty Acids Unknown,Other (See comments) Low 12/12/2010 [...] 04/15/2022 Assessment & Plan (07/08/2022 2:39 PM PRINCIPAL SOLUTIONS ARCHITECT): I did recommend that the patient decrease [...] 01/07/2022 Assessment & Plan (07/08/2022 2:39 PM PRINCIPAL SOLUTIONS ARCHITECT): The patient does have some cough with [...] 01/07/2022 Assessment & Plan (07/08/2022 2:39 PM PRINCIPAL SOLUTIONS ARCHITECT): She was intolerant of CPAP therapy and [...] above-knee amput ation of left lower extremity ([facility]) 08/02/2020 COVID-19 07/05/2020 Assessment & Plan (07/11/2020 6:58 AM PRINCIPAL SOLUTIONS ARCHITECT): - Patient tested positive for COVID-19 on 06/21/20 at her senior care ([facility] in [place], [place]). - She reports her only symptom [...] SNF. Assessment & Plan (07/07/2020 6:25 PM PRINCIPAL SOLUTIONS ARCHITECT): - Pt states she was actually tested [...] protocol Assessment & Plan (07/06/2020 11:59 AM PRINCIPAL SOLUTIONS ARCHITECT): - recommend getting records from SNF to establish exact date of first (+) COVID test. - pt likely has completed days of isolation. Assessment & Plan (07/06/2020 7:34 AM PRINCIPAL SOLUTIONS ARCHITECT): - Per report, pt was tested for [...] protocol Assessment & Plan (07/05/2020 5:40 PM PRINCIPAL SOLUTIONS ARCHITECT): - Per report, pt was tested for [...] 07/05/2020 Assessment & Plan (07/11/2020 6:57 AM PRINCIPAL SOLUTIONS ARCHITECT): History of open periprosthetic tibia/fibula fracture s/p [...] left lower extremity. - PM&R consulted. - Leadership Program Associate placed stump printmaker / ampushield. Awaiting delivery of limb protector. - Patient not interested in prosthesis at this time. - PT/OT consults. - Plan for patient to return to her prior SNF when medically stable with ongoing PT/OT. - ID and Ortho following. Assessment & Plan (07/07/2020 6:27 PM PRINCIPAL SOLUTIONS ARCHITECT): - History of open periprosthetic tibia/fibula fracture [...] extremity Assessment & Plan (07/06/2020 3:07 PM PRINCIPAL SOLUTIONS ARCHITECT): - Cellulitis vs subcutaneous infection vs OM [...] recs. Assessment & Plan (07/05/2020 6:03 PM PRINCIPAL SOLUTIONS ARCHITECT): - Cellulitis vs subcutaneous infection vs OM [...] (07/08/2020): Added automatically from request for surgery [id number] Abnormal x-ray of extremity 07/20/2019 Acute exacerbation of chronic low back pain 06/26 Biliary colic 07/20/2019 Chronic lumbosacral pain 07/20/2019 Chronic respiratory failure 07/20/2019 Assessment & Plan (07/08/2020 4:27 PM PRINCIPAL SOLUTIONS ARCHITECT): - Per pt 2/2 COPD. No sings of acute exacerbation. - Continue home flonase - Continue home albuterol prn - On home is on 4L O2 at baseline Assessment & Plan (07/07/2020 6:26 PM PRINCIPAL SOLUTIONS ARCHITECT): - Per pt 2/2 COPD. No sings of acute exacerbation. - Continue home flonase - Continue home albuterol prn - On baseline 4L O2 Assessment & Plan (07/06/2020 7:33 AM PRINCIPAL SOLUTIONS ARCHITECT): - Per pt 2/2 COPD. No sings of acute exacerbation. - Continue home flonase - Continue home albuterol prn - On baseline 4L O2 Assessment & Plan (07/05/2020 6:00 PM PRINCIPAL SOLUTIONS ARCHITECT): - Per pt 2/2 COPD. No sings of acute exacerbation. - Continue home flonase - Continue home albuterol prn - On baseline 4L O2 Closed displaced bimalleolar fracture of right l ower leg 07/20/2019 Assessment & Plan (07/05/2020 6:01 PM PRINCIPAL SOLUTIONS ARCHITECT): - As elsewhere Deep venous insufficiency 07/20/2019 [...] 06/28/2019 Assessment & Plan (07/08/2020 4:26 PM PRINCIPAL SOLUTIONS ARCHITECT): - Follows with cardiology. - Continue home amlodipine, metoprolol, lasix, spironolactone. - Switched olmesartan to losartan as not on formulary. Assessment & Plan (07/07/2020 6:26 PM PRINCIPAL SOLUTIONS ARCHITECT): - Follows with cardiology - Continue home amlodipine, metoprolol, lasix, spironolactone - Switched olmesartan to losartan as not on formulary Assessment & Plan (07/06/2020 3:04 PM PRINCIPAL SOLUTIONS ARCHITECT): - Follows with cardiology - Continue home amlodipine, metoprolol, lasix, spironolactone - Switched olmesartan to losartan as not on formulary Assessment & Plan (07/05/2020 5:58 PM PRINCIPAL SOLUTIONS ARCHITECT): - Follows with cardiology - Continue home amlodipine, metoprolol, lasix, spironolactone - Switch olmesartan to losartan as not on formulary Syncope due to sick sinus syndrome (CMS/HCC) 10/2018 Open displaced comminuted fr acture of shaft of left tibia, type IIIA, IIIB, or IIIC 06/28/2019 Overview (06/28/2019): Added automatically from request for surgery [id number] Assessment & Plan (07/08/2020 4:27 PM PRINCIPAL SOLUTIONS ARCHITECT): - See above. 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 After hours, the ID fellow operations forester can be reached at [phone]. Assessment & Plan (07/05/2020 5:59 PM PRINCIPAL SOLUTIONS ARCHITECT): - L tibia and R ankle fractures s/p BRENNA in 06/2020 - Complicated by poor healing and multiple infections of L anterior leg wound - Pt of Dr. Shoemaker Hyponatremia 11/23/2017 Assessment & Plan (07/11/2020 6:59 AM PRINCIPAL SOLUTIONS ARCHITECT): - Pt with history of hypoNa (per report, baseline mid 120- low 130s). - Na 126 on admission. No AMS. - TSH wnl. Cortisol 17. - Na stable. Assessment & Plan (07/07/2020 6:26 PM PRINCIPAL SOLUTIONS ARCHITECT): - Pt with history of hypoNa (per report, baseline mid 120- low 130s). - Na 126 on admission. No AMS. - TSH wnl. Cortisol 17. - Diuretics were held and Na improved to 132. Restart when able. Assessment & Plan (07/06/2020 7:31 AM PRINCIPAL SOLUTIONS ARCHITECT): - Pt with history of hypoNa (per report, baseline mid 120- low 130s). - Na 126 on admission. No AMS. - TSH wnl. Cortisol 17. - NS IVF - CTM Na Traumatic rhabdomyolysis (CMS/HCC) 11/23/2017 Syndrome of inappropriate antidiuretic hormone 1 [...] 05/04/2018 Tdap 06/28/2019 ZOSTER Recombinant 01/25/2019,11/22/2018, 019 Social History Tobacco Use Types Packs/Day Years [...] AM CDT Sexual Orientation Not on file Last Filed Vital Signs Vital Sign Reading Time Taken Comments Blood Pressure 153/76 07/08/2022 2:24 PM PRINCIPAL SOLUTIONS ARCHITECT Pulse 71 07/08/2022 2:24 PM PRINCIPAL SOLUTIONS ARCHITECT Temperature 36.5 ??C (97.7 ??F) 01/16/2022 5:20 PM CD T Respiratory Rate 18 07/08/2022 2:24 PM PRINCIPAL SOLUTIONS ARCHITECT Oxygen Saturation 96% 07/08/2022 2:24 PM PRINCIPAL SOLUTIONS ARCHITECT Inhaled Oxygen Concentration - - Weight 89.4 kg (197 lb) 01/16/2022 5:20 PM CDT Height 157.5 cm (5' 2 ) 04/15/2022 2:28 PM CDT Body Mass Index 36.03 01/07/2022 12:59 PM CDT Plan of Treatment Not on file Medical Devices Implanted Type Area Applications Administrator Device Identifier Shelf Expiration Date Model / Serial / Lot Synthes 223.581 Lcp Combi [id number] 8 Hole Limit Contact Taper End Plate Bone - S0 - [id number] Implanted:Qty: 1 on 06/28/2019 by Lo Laura DO at [facility] Plate Left: Tibia Synthes I 223.581 / 0 / 0 Synthes 212.106 3.5mm 2.9mm 20mm Self Tap Lock Stardrive Conical Head T15 Full - S0 - [id number] Implanted:Qty: 1 on 06/28/2019 by Lo Laura DO at [facility] Screw Left: Tibia Synthes I 212.106 / 0 / 0 Synthes 212.108 3.5mm 2.9mm 24mm Self Tap Lock Stardrive Conical Head Pelvis T15 - S0 - [id number] Implanted:Qty: 1 on 06/28/2019 by Lo Laura DO at [facility] Screw Left: Tibia Synthes I 212.108 / 0 / 0 Synthes 212.109 3.5mm 2.9mm 26mm Self Tap Lock Stardrive Conical Head T15 Full - S0 - [id number] Implanted:Qty: 1 on 06/28/2019 by Lo Laura DO at [facility] Screw Left: Tibia Synthes I 212.109 / 0 / 0 Synthes 212.104 3.5mm 2.9mm 16mm Self Tap Lock Stardrive Conical Head T15 Full - S0 - [id number] Implanted:Qty: 2 on 06/28/2019 by Lo Laura DO at [facility] Screw Left: Tibia Synthes I 212.104 / 0 / 0 Synthes 212.107 3.5mm 2.9mm 22mm Self Tap Lock Stardrive Conical Head T15 Full - S0 - [id number] Implanted:Qty: 1 on 06/28/2019 by Lo Laura DO at [facility] Screw Left: Tibia Synthes I 212.107 / 0 / 0 Synthes 212.103 3.5mm 2.9mm 14mm Self Tap Lock Stardrive Conical Head T15 Full - [id number] Implanted:Qty: 2 on 06/30/2019 by Jacobo Shoemaker MD at [facility] Left: Tibia Synthes I 212.103 / / Synthes 212.109 3.5mm 2.9mm 26mm Self Tap Lock Stardrive Conical Head T15 Full - [id number] Implanted:Qty: 2 on 06/30/2019 by Jacobo Shoemaker MD at [facility] Left: Tibia Synthes I 212.109 / / Synthes 212.101 3.5mm 2.9mm 10mm Self Tap Lock Stardrive Conical Head T15 Full - [id number] Implanted:Qty: 1 on 06/30/2019 by Jacobo Shoemaker MD at [facility] Left: Tibia Synthes I 212.101 / / Synthes 212.107 3.5mm 2.9mm 22mm Self Tap Lock Stardrive Conical Head T15 Full - [id number] Implanted:Qty: 1 on 06/30/2019 by Jacobo Shoemaker MD at [facility] Left: Tibia Synthes I 212.107 / / Synthes 204.840 3.5mm 6mm 40mm 2.5mm Self Tap Small Hexagonal Socket Low Profile - [id number] Implanted:Qty: 1 on 06/30/2019 by Jacobo Shoemaker MD at [facility] Left: Tibia Synthes I 204.840 / / Synthes 204.832 3.5mm 6mm 32mm 2.5mm Self Tap Small Hexagonal Socket Low Profile - [id number] Implanted:Qty: 1 on 06/30/2019 by Jacobo Shoemaker MD at [facility] Left: Tibia Synthes I 204.832 / / Synthes 241.351 Lcp 12mm [id number] .7mm 5 Hole Collar 1/3 Tubular Plate Bone - [id number] Implanted:Qty: 1 on 06/30/2019 by Jacobo Shoemaker MD at [facility] Left: Tibia Synthes I 241.351 / / Synthes 241.351 Lcp 12mm [id number] .7mm 5 Hole Collar 1/3 Tubular Plate Bone - [id number] Implanted:Qty: 1 on 06/30/2019 by Jacobo Shoemaker MD at [facility] Right: Ankle Synthes I 241.351 / / Synthes 204.826 3.5mm 6mm 26mm 2.5mm Self Tap Small Hexagonal Socket Low Profile - [id number] Implanted:Qty: 1 on 06/30/2019 by Jacobo Shoemaker MD at [facility] Right: Ankle Synthes I 204.826 / / Synthes 212.102 3.5mm 2.9mm 12mm Self Tap Lock Stardrive Conical Head T15 Full - [id number] Implanted:Qty: 1 on 06/30/2019 by Jacobo Shoemaker MD at [facility] Right: Ankle Synthes I 212.102 / / Synthes 212.114 3.5mm 2.9mm 35mm Self Tap Lock Stardrive Conical Head T15 Full - [id number] Implanted:Qty: 1 on 06/30/2019 by Jacobo Shoemaker MD at [facility] Right: Ankle Synthes I 212.114 / / Synthes 223.641 Lcp Combi [id number] 14 Hole Limit Contact Taper End Plate Bone - [id number] Implanted:Qty: 1 on 06/30/2019 by Jacobo Shoemaker MD at [facility] Left: Tibia Synthes I 223.641 / / Synthes 204.824 3.5mm 6mm 24mm 2.5mm Self Tap Small Hexagonal Socket Low Profile - [id number] Implanted:Qty: 2 on 06/30/2019 by Jacobo Shoemaker MD at [facility] Left: Tibia Synthes I 204.824 / / Synthes 212.104 3.5mm 2.9mm 16mm Self Tap Lock Stardrive Conical Head T15 Full - [id number] Implanted:Qty: 2 on 06/30/2019 by Jacobo Shoemaker MD at [facility] Left: Tibia Synthes I 212.104 / / Explanted Type Area Applications Administrator Device Identifier Shelf Expiration Date Model / Serial / Lot Synthes 204.836 3.5mm 6mm 36mm 2.5mm Self Tap Small Hexagonal Socket Low Profile - [id number] Explanted:Qty: 1 on 06/30/2019 at [facility] Right: Ankle Synthes I 204.836 / / Synthes 212.117 3.5mm 2.9mm 40mm Self Tap Lock Stardrive Conical Head T15 Full - [id number] Explanted:Qty: 1 on 06/30/2019 at [facility] Right: Ankle Synthes I 212.117 / / Procedures Procedure Name Priority Date/Time Associated Diagnosis Comments SCREENING MAMMOGRAM BILATERAL W WILLIE Schedule Routine, Read Routine (OP Routine) 02/18/2023 1:39 PM CDT Screening mammogram, encounter for HEPATITIS PANEL, ACUTE Routine 06/10/2019 10:11 AM PRINCIPAL SOLUTIONS ARCHITECT from Last 3 Months or Most Recently [...] age 42, based on guidelines of the [place] [employer] (ACR Practice Parameter for the Performance of Screening and Diagnostic Mammography) and [place] [employer]. For women [...] * Hepatitis panel, acute (06/10/2019 10:11 AM PRINCIPAL SOLUTIONS ARCHITECT) HepBsAg NONREACT NONREACTIVE [facility] Comment: Siemens CentaurXP using SUSU (chemiluminescent immunoassay) technology. NONREACTIVE: IgM antibodies to Hepatitis B Surface antigen not detected. REACTIVE: IgM antibodies to Hepatitis B Surface antigen detected. Reactive results will be confirmed by neutralization testing. HBsAb qn <3.10 mIU/mL [facility] Comment: Siemens CentaurXP using SUSU (chemiluminescent immunoassay) technology. 9.99 IU/L or less.....NONREACTIVE: IgM antibodies to Hepatitis B Surface antibody are not detected. 10.00 IU/L or greater..REACTIVE: IgM antibodies to Hepatitis B Surface antibody are detected. Hep B core IgM NONREACT NONREACTIVE [facility] Comment: Siemens CentaurXP using SUSU (chemiluminescent immunoassay) technology. NONREACTIVE: IgM antibodies to Hepatitis B Core antigen not detected. EQUIVOCAL: IgM antibodies to Hepatitis B Core antigen may or may not be present. Obtain a ??new specimen and retest. REACTIVE: IgM antibodies to Hepatitis B Core antigen detected. Hep A IgM NONREACT NONREACTIVE [facility] Comment: Siemens CentaurXP using SUSU (chemiluminescent immunoassay) technology. NONREACTIVE: IgM antibodies to Hepatitis A not detected. This does not exclude possibility of exposure to Hepatitis A or early acute infection. EQUIVOCAL:IgM antibodies to Hepatitis A may or may not be present. Suggest recollection and retest. REACTIVE: Antibodies to Hepatitis A detected. Hep C Ab NONREACT NONREACTIVE [facility] Comment: Siemens CentaurXP using SUSU (chemiluminescent immunoassay) [...] real-time PCR method. 06/10/2019 10:1 1 AM PRINCIPAL SOLUTIONS ARCHITECT 06/10/2019 10:47 AM PRINCIPAL SOLUTIONS ARCHITECT Narrative Resulting Agency Comment IN Destiny Pereira MD LAB MICROBIOLOGY - GENERAL ORDERABLES Final Result [id number] [place] [address], [facility] [phone] from Last 3 Months or Most Recently Relevant to Health Maintenance Insurance [facility] Advance Directives For more information, please contact: [phone] Documents on File Type Date Recorded Patient Digital Asset Specialist Expl anation ADVANCE DIRECTIVE 07/14/2020 6:58 AM * Full Code (Latest Code Status on File) Date Activated Date Inactivated Comments 07/05/2020 4:11 PM 07/12/2020 7:15 PM * Full Code Date Activated Date Inactivated Comments 06/28/2019 11:55 PM 07/06/2019 8:59 PM Care Teams Geoscience Technician Relationship Specialty Start Date End Date Hernando Velasquez MD [address] [place] [address] PCP - General Internal Medicine 01/07/22 Jose Manuel Gruber MD Fellow Orthopedic Surgery 07/06/19
--- OUTSIDE RECORDS SUMMARY | 2024-08-13 04:58 | XMS_ITS | Encounter Summary ---
Author Organization [facility] Healthcare Address [address] [place] [address] Care Team Providers Care Head Swamper Name Role Phone Jose Manuel Gruber MD Unavailable [phone] Hernando Velasquez MD Primary Care Provider [phone] Encounter Details Date Type Department Care Team (Late st Contact Info) Description 03/25/2022 Orders Only Gastroententerology Ariela Garcia MD [address] [place] [id number] Social History Tobacco Use Types Packs/Day Years [...] on filedocumented in this encounter Care Teams Head Swamper Relationship Specialty Start Date End Date Hernando Velasquez MD [address] [place] [address] PCP - General Internal Medicine 01/07/22 Jose Manuel Gruber MD Fellow Orthopedic Surgery 07/06/19 documented as of this encounter
--- OUTSIDE RECORDS SUMMARY | 2024-08-13 04:59 | XMS_ITS | Encounter Summary ---
Author Organization [facility] Healthcare Address [address] [place] [address] Care Team Providers Care Junior Art Director Name Role Phone Jose Manuel Gruber MD Unavailable [phone] Bernardo Edwards MD Primary Care Provider [phone] Encounter Details Date Type Department Care Team (Late st Contact Info) Description 07/12/2020 Documentation [facility] Case Management [address] [place] [address] Fernanda Mcarthur MSW Social History Tobacco Use Types Packs/Day Years [...] as of this encounter Progress Notes * Christopher Jay MD - 07/12/2020 11:39 AM CST Attestation Note: I saw and examined Celestina Ewing in the hospital on Sunday, July 12, 2020. I agree with the findings and plan of care as detailed by the Freezer Operator, Dr. Arianna Huynh. Christopher Jay MD WORKS ASSEMBLY SUPERVISOR documented in this encounter Miscellaneous Notes * Plan of Care - Fernanda Mcarthur MSW - 07/12/2020 11:39 AM CST Patient was transferred from [address] [place] [address] [place] [address]. Manager Loan notified. Handoff received via e-mail. Insurance auth was approved for pt to return to [facility]. Problem: Ensure acute medical needs are met and that patient has a safe discharge plan. Goal: Secure a facility that patient/family are agreeable with and ensure patient has continuum of care. DIEGO Coley # [phone] WORKS ASSEMBLY SUPERVISOR documented in this encounter Plan of Treatment Not on file documented as of this encounter Visit Diagnoses Not on filedocumented in this encounter Additional Health Concerns Infection Onset Date Last Indicated Resolved Time COVID: Recovered 07/11/2020 07/11/2020 11/08/2020 3:05 AM CDT documented as of this encounter Care Teams Junior Art Director Relationship Specialty Start Date End Date Bernardo Edwards MD [facility] [place] [address] PCP - General 07/08/20 01/06/22 Jose Manuel Gruber MD Fellow Orthopedic Surgery 07/06/19 documented as of this encounter
--- OUTSIDE RECORDS SUMMARY | 2024-08-13 04:59 | XMS_ITS | Encounter Summary ---
Author Organization [facility] Address [address] [place] [address] Phone Care Team Providers Care Paint Spray Inspector Name Role Phone Jose Manuel Gruber MD Unavailable [phone] Bernardo Edwards MD Primary Care Provider [phone] Reason for Visit * Reason Comments Post-op Encounter Details Date Type Department Care Team (Late st Contact Info) Description 08/20/2020 10:20 AM SAFETY MANAGER Office Visit [facility] Orthopaedic Surgery [facility] [address] [place] [address] [place] [address] Jacobo Shoemaker MD [address] [place] [address] 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 REVIEW OF X-RAYS/STUDIES No new xrays today. IMPRESSION Doing better after slow healing wound from above knee amputation PLAN/FOLLOW UP Discontinue Betadine paint. Dry sterile dressing as needed only. Follow up in 2 weeks for evaluation of wound, x-rays of the left femur on arrival Jacobo Shoemaker MD MSc Orthopedic Trauma Service [facility] Orthopedics Jacobo Shoemaker MD MSc dictating using [employer] Direct Software. Slitter And Cutter Operator variances may occur. 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
--- OUTSIDE RECORDS SUMMARY | 2024-08-13 04:59 | XMS_ITS | Encounter Summary ---
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 6th [place] [address] [place] [address] Jacobo Shoemaker MD [address] [facility] 6A[address]6B[address] [place] [address] Status post above-knee amputation of left lower [...] Progress Notes * Jacobo Shoemaker MD - 10/01/2020 12:50 PM CST POST OP VISIT INTERIM HISTORY No complaints, overall feeling well PHYSICAL EXAMINATION Excellent control of the left residual limb. Wounds are well healed with no threatened skin REVIEW OF X-RAYS/STUDIES I have ordered and personally reviewed xrays of the patient's left femur which demonstrate normal alignment and calcification of the oversewn soft tissues at the end of the residual limb IMPRESSION Doing well with left above the knee amputation, not pursuing prosthesis PLAN/FOLLOW UP Activities as tolerated, follow up as needed Jacobo Shoemaker MD MSc Orthopedic Trauma Service [facility] Orthopedics Jacobo Shoemaker MD MSc dictating using [employer] Software. Finish Mill Operator variances may occur. OACTIVITY TECHNICIAN documented in this encounter Plan of Treatment Not on file documented as of this encounter Results * XR Femur Left 2 or More Views (10/01/2020 1:58 PM RADIOACTIVITY TECHNICIAN) Anatomical Region Laterality Modality Lower Extremities, Thigh, Femur Left Computed Radiography 10/01/2020 2:53 PM RADIOACTIVITY TECHNICIAN Impressions 10/01/2020 4:17 PM RADIOACTIVITY TECHNICIAN New postoperative changes of left above-knee amputation Dictated by: Gaurang Esquivel MD, PHD The radiology attending physician has personally reviewed this study, and had reviewed and/or edited this written report and agrees with it. Electronically signed by: Connie Catalan M.D. Narrative 10/01/2020 4:17 PM RADIOACTIVITY TECHNICIAN EXAMINATION: XR FEMUR LEFT 2 OR MORE VIEWS HISTORY: Left above knee amputation FINDINGS: 4 radiographs of the left femur are submitted for interpretation with comparison made to left knee CT dated 07/06/2020. There has been left above-knee amputation. Heterotopic ossification is noted at the stump. Subcutaneous edema is present. No acute fracture or osseous erosion. Procedure Note Connie Catalan MD - 10/01/2020 EXAMINATION: XR FEMUR LEFT 2 OR MORE VIEWS HISTORY: Left above knee amputation FINDINGS: 4 radiographs of the left femur are submitted for interpretation with comparison made to left knee CT dated 07/06/2020. There has been left above-knee amputation. Heterotopic ossification is noted at the stump. Subcutaneous edema is present. No acute fracture or osseous erosion. IMPRESSION: New postoperative changes of left above-knee amputation Dictated by: Gaurang Esquivel MD, PHD The radiology attending physician has personally reviewed this study, and had reviewed and/or edited this written report and agrees with it. Electronically signed by: Connie Catalan M.D. 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 Medication Sig Dispense Quantity Refills Last Filled Start D ate End Date zolpidem (AMBIEN) 10 mg tablet 10/01/2020 04/15/2022 added in this encounter Additional Health Concerns Infection Onset Date Last Indicated Resolved Time COVID: Recovered 07/11/2020 07/11/2020 11/08/2020 3:05 AM CDT documented as of this encounter Care Teams Monogram Maker Relationship Specialty Start Date End Date Bernardo Edwards MD [address] [place] [address] PCP - General 07/08/20 01/06/22 Jose Manuel Gruber MD Fellow Orthopedic Surgery 07/06/19 documented as of this encounter
--- OUTSIDE RECORDS SUMMARY | 2024-08-13 04:59 | XMS_ITS | Encounter Summary ---
Author Organization 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) Procedures XR Femur Left 2 or More Views Jacobo Shoemaker MD Phone: tel: fax: [facility] Referral ID Status Reason Start Date Expiration Date Visits Re quested Visits Authorized [id number] Closed 09/30/2020 10/30/2021 1 1 Y WEIGHER Reason for Visit * Diagnostic Imaging (Routine) - Closed Specialty Diagnoses / Procedures Referred By Contac t Referred To Contact Diagnoses 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) Procedures XR Femur Left 2 or More Views Jacobo Shoemaker MD Phone: tel: fax: [facility] Referral ID Status Reason Start Date Expiration Date Visits Re quested Visits Authorized [id number] Closed 09/30/2020 10/30/2021 1 1 Encounter Details Date Type Department Care Team (Late st Contact Info) Description 10/01/2020 1:30 PM ALLOY WEIGHER - 10/01/2020 11:59 PM ALLOY WEIGHER Hospital Encounter [facility] [address] [place] [address] Jacobo Shoemaker MD [address] [facility] 6A/6B[address] [place] [address] Status post above-knee amputation of left lower extremity (CMS/HCC) Discharge Disposition: Discharge to home or self [...] enoxaparin (LOVENOX) 40 mg/0.4 mL syringe 0 famciclovir (FAMVIR) 250 mg tabletIndications:O ther (complete [...] 0 losartan (COZAAR) 100 mg tablet 1 metoprolol (LOPRESSOR) 25 mg tablet Take 1 [...] by mouth daily. Indications: Stress Ulcer Prophylaxis primidone (MYSOLINE) 50 mg tablet 0 ramelteon (ROZEREM) 8 mg tabletIndications:S leep-Onset Insomnia Take 1 tablet (8 mg total) by mouth nightly 30 tablet 11 0 spironolactone (ALDACTONE) 25 mg tablet Take 1 tablet (25 mg total) by mouth daily 30 tablet 11 0 vitamin E (AQUASOL E) 400 unit capsuleIndications: Vitamin E Deficiency Take 800 Units by mouth daily. Indications: deficiency of vitamin E albuterol HFA (PROVENTIL HFA,VENTOLIN HFA,PROAIR HFA) 90 mcg/actuation inhalerIndications: Acute Asthma Attack Inhale 2 puffs every 4 (four) hours as needed for shortness of breath. Indications: Asthma Attack 08/27/19 23 amoxicillin-clavula kristian (AUGMENTIN) 875-125 mg per tablet 1 04/15/20 22 clindamycin (CLEOCIN) 150 mg capsule 0 04/15/20 22 clindamycin (CLEOCIN) 300 mg capsule 0 04/15/20 22 doxycycline hyclate 100 mg capsule 0 04/15/20 22 gabapentin (NEURONTIN) 400 mg capsule Take 1 capsule (400 mg total) by mouth every 8 (eight) hours 1 capsule 9 04/15/20 22 oxyCODONE ER (OxyCONTIN) 10 mg 12 hr abuse-deterrent tablet Take 1 tablet (10 mg total) by mouth 2 (two) times a day 60 tablet 0 04/15/20 22 zolpidem (AMBIEN) 10 mg tablet 1 04/15/20 22 documented as of this encounter Discharge Disposition Disposition Code Departure Means Destination Discharge to home or self care documented in this encounter Plan of Treatment Not on file documented as of this encounter Procedures Procedure Name Priority Date/Time Associated Diagnosis Comments XR FEMUR LEFT 2 OR MORE VIEWS Schedule Routine, Read Routine (OP Routine) 10/01/2020 1:58 PM ALLOY WEIGHER Status post above-knee amputation of left lower extremity (CMS/HCC) documented in this encounter Results * XR Femur Left 2 or More Views (10/01/2020 1:58 PM ALLOY WEIGHER) Anatomical Region Laterality Modality Lower Extremities, Thigh, Femur Left Computed Radiography 10/01/2020 2:53 PM ALLOY WEIGHER Impressions 10/01/2020 4:17 PM ALLOY WEIGHER New postoperative changes of left above-knee amputation Dictated by: Gaurang Esquivel MD, PHD The radiology attending physician has personally reviewed this study, and had reviewed and/or edited this written report and agrees with it. Electronically signed by: Connie Catalan M.D. Narrative 10/01/2020 4:17 PM ALLOY WEIGHER EXAMINATION: XR FEMUR LEFT 2 OR MORE [...] extremity (CMS/HCC) (HCC) documented in this encounter Additional Health Concerns Infection Onset Date Last Indicated Resolved Time COVID: Recovered 07/11/2020 07/11/2020 11/08/2020 3:05 AM CDT documented as of this encounter Care Teams Division Order Analyst Relationship Specialty Start Date End Date Bernardo Edwards MD [address] [place] [address] PCP - General 07/08/20 01/06/22 Jose Manuel Gruber MD Fellow Orthopedic Surgery 07/06/19 documented as of this encounter
--- OUTSIDE RECORDS SUMMARY | 2024-08-13 04:59 | XMS_ITS | Encounter Summary ---
Author Organization [facility] Address [address] [place] [address] Phone Care Team Providers Care Assistant Pastry Chef Name Role Phone Jose Manuel Gruber MD Unavailable [phone] Bernardo Edwards MD Primary Care Provider [phone] Reason for Visit * Reason Comments Post-op Encounter Details Date Type Department Care Team (Late st Contact Info) Description 08/06/2020 9:30 AM SANITARY ENGINEER Office Visit [facility] Orthopaedic Surgery [facility] [facility] 6th [place] [address] [place] [address] Jacobo Shoemaker MD [address] [facility] 6A[address]6B[address] [place] [address] Status post above-knee amputation of left lower [...] Progress Notes * Jacobo Shoemaker MD - 08/06/2020 9:30 AM CST POST OP VISIT INTERIM HISTORY Decreasing amounts of serous drainage noted on the dressing PHYSICAL EXAMINATION No harrison dehiscence but still a small amount of drainage from the middle portion of the above knee amputation wound, serous in appearance. No pain with range of motion of the hip REVIEW OF X-RAYS/STUDIES No new xrays today. IMPRESSION Doing okay after above knee amputation a left PLAN/FOLLOW UP Continue betadine paint to wound, daily dressing changes, follow up in 2 weeks, no x-rays needed, wound check only Jacobo Shoemaker MD MSc Orthopedic Trauma Service [facility] Orthoped[facility] Jacobo Shoemaker MD MSc dictating using [employer] Direct Software. Digital Ad Trafficker variances may occur. 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 Medication Sig Dispense Quantity Refills Last Filled Start D ate End Date amoxicillin-clavulana te (AUGMENTIN) 875-125 mg per tablet 08/01/2020 added in this encounter Additional Health Concerns Infection Onset Date Last Indicated Resolved Time COVID: Recovered 07/11/2020 07/11/2020 11/08/2020 3:05 AM CDT documented as of this encounter Care Teams Assistant Pastry Chef Relationship Specialty Start Date End Date Bernardo Edwards MD [address] [place] [address] PCP - General 07/08/20 01/06/22 Jose Manuel Gruber MD Fellow Orthopedic Surgery 07/06/19 documented as of this encounter
--- OUTSIDE RECORDS SUMMARY | 2024-08-13 04:59 | XMS_ITS | Encounter Summary ---
Author Organization [facility] Address [address] [place] [address] Phone Care Team Providers Care Haulage Engine Operator Name Role Phone Jose Manuel Gruber MD Unavailable [phone] Bernardo Edwards MD Primary Care Provider Reason for Visit * Reason Comments Post-op Encounter Details Date Type Department Care Team (Late st Contact Info) Description 07/30/2020 11:30 AM JAVA PORTAL DEVELOPER Office Visit [facility] Orthopaedic Surgery [facility] 6th [place] [address] [place] [id number] Jacobo Shoemaker MD [address] [facility] 6A/6B[address]A [place] [address] Type III open displaced comminuted fracture of shaft of left tibia with routine healing, subsequent encounter (Primary Dx) Social History Tobacco Use Types [...] Progress Notes * Jacobo Shoemaker MD - 07/30/2020 11:30 AM CST POST OP VISIT INTERIM HISTORY The patient is noted drainage from the midline of her incision PHYSICAL EXAMINATION Moderate amount of serous drainage from the midline, no harrison dehiscence of the wound. No pain withrange of motion of the hip REVIEW OF X-RAYS/STUDIES No new xrays today. IMPRESSION Ongoing drainage at above knee amputation site PLAN/FOLLOW UP Continue nonweightbearing, Betadine paint to the incision site with daily dry dressing changes increase to twice daily if drainage requires it to keep the dressings and skin dry. Follow up in 1 week with no x-rays needed Jacobo Shoemaker MD MSc Orthopedic Trauma Service [facility] Orthopedics Jacobo Shoemaker MD MSc dictating using [employer] Direct Software. Twist Maker variances may occur. PORTAL DEVELOPER documented in this encounter Plan of Treatment Not on file documented as of this encounter Visit Diagnoses Diagnosis Type III open displaced comminuted fracture of shaft of left tibia with routine healing, subsequent encounter- Primary documented in this encounter Discontinued Medications Medication Sig Discontinue Reason Start Date End Da te triamcinolone (KENALOG) 0.1 % cream Apply topically 2 (two) times a day 07/12/2020 07/30/2020 documented as of this encounter Historical Medications * This list may reflect changes made after this encounter. Medication Sig Dispense Quantity Refills Last Filled Start D ate End Date oxyCODONE-acetaminoph en (PERCOCET) 5-325 mg per tablet 07/29/2020 losartan (COZAAR) 100 mg tablet 07/28/2020 doxycycline hyclate 100 mg capsule 06/25/2020 04/15/2022 clindamycin (CLEOCIN) 300 mg capsule 05/27/2020 04/15/2022 clindamycin (CLEOCIN) 150 mg capsule 05/28/2020 04/15/2022 added in this encounter Additional Health Concerns Infection Onset Date Last Indicated Resolved Time COVID: Recovered 07/11/2020 07/11/2020 11/08/2020 3:05 AM CDT documented as of this encounter Care Teams Haulage Engine Operator Relationship Specialty Start Date End Date Bernardo Edwards MD [address] [place] [address] PCP - General 07/08/20 01/06/22 Jose Manuel Gruber MD Fellow Orthopedic Surgery 07/06/19 documented as of this encounter
--- OUTSIDE RECORDS SUMMARY | 2024-08-13 05:00 | XMS_ITS | Encounter Summary ---
Author Organization [facility] Healthcare Address [address] [place] [address] Care Team Providers Care Truck Packer Name Role Phone Jose Manuel Gruber MD Unavailable [phone] Bernardo Edwards MD Primary Care Provider [phone] Encounter Details Date Type Department Care Team (Latest Contact Info) Description 07/05/2020 6:15 PM FIELD ASSOCIATE - 07/05/2020 11:59 PM FIELD ASSOCIATE Hospital Encounter [facility]) [address] [place] [address] Discharge Disposition: Discharge to home or self [...] (eight) hours as needed for anxiety 0 metoprolol (LOPRESSOR) 25 mg tablet Take 1 [...] for nausea or vomiting [address] (PROTONIX) 40 mg EC tabletIndications:S [...] mouth daily. Indications: deficiency of vitamin E amoxicillin-clavula kristian (AUGMENTIN) 875-125 mg per tabletIndications:S kin/Soft Tissue Infection Take 1 tablet by mouth 2 (two) times a day for 27 doses 27 tablet 0 07/26/19 21 oxyCODONE (ROXICODONE) 5 mg immediate release tabletIndications:P ain Take 1 tablet (5 mg total) by mouth every 4 (four) hours as needed for pain 120 tablet 0 08/11/19 21 albuterol HFA (PROVENTIL HFA,VENTOLIN HFA,PROAIR HFA) 90 mcg/actuation inhalerIndications: Acute Asthma Attack Inhale 2 puffs every 4 (four) hours as needed for shortness of breath. Indications: Asthma Attack 08/27/19 23 clindamycin (CLEOCIN) 150 mg capsule 0 04/15/20 22 clindamycin (CLEOCIN) 300 mg capsule 0 04/15/20 22 doxycycline hyclate 100 mg capsule 0 04/15/20 22 gabapentin (NEURONTIN) 400 mg capsule Take 1 capsule (400 mg total) by mouth every 8 (eight) hours 1 capsule 9 04/15/20 22 oxyCODONE (ROXICODONE) 10 mg tabletIndications:P ain Take 1 tablet (10 mg total) by mouth every 4 (four) hours as needed for pain 20 tablet 9 07/12/20 20 oxyCODONE (ROXICODONE) 5 mg immediate release tabletIndications:P ain Take 1 tablet (5 mg total) by mouth every 4 (four) hours as needed for pain 0 07/12/20 20 oxyCODONE ER (OxyCONTIN) 10 mg 12 hr abuse-deterrent tablet Take 1 tablet (10 mg total) by mouth 2 (two) times a day 0 0 07/12/20 20 oxyCODONE ER (OxyCONTIN) 10 mg 12 hr abuse-deterrent tablet Take 1 tablet (10 mg total) by mouth 2 (two) times a day 60 tablet 0 07/12/20 20 oxyCODONE ER (OxyCONTIN) 10 mg 12 hr abuse-deterrent tablet Take 1 tablet (10 mg total) by mouth 2 (two) times a day 60 tablet 0 04/15/20 22 oxyCODONE-acetamino phen (PERCOCET) 5-325 mg per tablet 01/07/20 2 0 07/12/20 20 triamcinolone (KENALOG) 0.1 % cream Apply topically 2 (two) times a day 30 g 0 07/30/19 21 documented as of this encounter Discharge Disposition Disposition Code Departure Means Destination Discharge to home or self care documented in this encounter Plan of Treatment Not on file documented as of this encounter Procedures Procedure Name Priority Date/Time Associated Diagnosis Comments XR TRANSFER OF OUTSIDE FILMS Routine 07/05/2020 6:15 PM FIELD ASSOCIATE Diagnosis unknown documented in this encounter Results * XR Outside Reference (07/05/2020 6:15 PM FIELD ASSOCIATE) Impressions [facility] - 07/05/2020 6:15 PM FIELD ASSOCIATE These images are for Reference purposes only and have not been reviewed by [facility] Radiology. ??There will be no report generated by a [facility] Radiologist. Narrative [facility] - 07/05/2020 6:15 PM FIELD ASSOCIATE EXAMINATION: ??Images For Reference Purposes Only us Vianney Caballero MD IMG XR PROCEDURES Final Result [facility] documented in this encounter Visit Diagnoses Not on filedocumented in this encounter Care Teams Truck Packer Relationship Specialty Start Date End Date Bernardo Edwards MD [facility] [place] [address] PCP - General 07/05/20 07/06/20 Jose Manuel Gruber MD Fellow Orthopedic Surgery 07/06/19 documented as of this encounter
--- OUTSIDE RECORDS SUMMARY | 2024-08-13 05:00 | XMS_ITS | Encounter Summary ---
Author Organization [facility] Healthcare Address [address] [place] [address] Care Team Providers Care Non Destructive Testing Supervisor Name Role Phone Jose Manuel Gruber MD Unavailable [phone] Bernardo Edwards MD Primary Care Provider [phone] Encounter Details Date Type Department Care Team (Late st Contact Info) Description 07/08/2020 11:11 AM SPRAY UNIT FEEDER Anesthesia Event [facility] Operating Room [address] [place] [address] Monroe Mariscal MD [address] [facility] [id number] [place] [address] Efren Cobb, OIL FURNACE INSTALLER [address] [place] [address] Anesthesia Record Procedure Summary Procedure Name Responsible Anesthesiologist Anesthesia Start Time Anesthesia Stop Time AMPUTATION ABOVE KNEE (Left: Thigh) Monroe Mariscal MD 07/08/20 1111 07/08/20 1455 Events Date Time Event Comment 07/08/2020 1111 An Start 1114 In Room 1115 An Start Data 1129 An Induction The patient was reevaluated immediately before moderate or deep sedation use and before anesthesia induction. 1130 An Intubation 1131 Anesthesia Ready 1158 Incision Start 1422 Proc Fin 1440 An Extubation 1441 an stop data 1442 Out of Room 1455 Handoff to RN I completed my handoff to the receiving nurse during which we: 1. Patient identified 2. Responsible provider identified 3. Pertinent medical history reviewed 4. Procedure type and surgical course discussed 5. Intraoperative anesthetic management and any significant issues discussed 6. Expectations and concerns for postop period discussed 7. Questions solicited from receiving nurse 8. Patient disposition at the time of handoff: PACU 1455 An Stop Meds Name Total lidocaine 1 % PF 60 mg fentaNYL 100 mcg propofol 140 mg succinylcholine 80 mg phenylephrine 100 mcg/mL 350 mcg HYDROmorphone 2 mg/mL 2 mg ondansetron PF (ZOFRAN) 2 mg/mL injectio n 4 mg ketorolac 15 mg dexamethasone 4 mg/ml 8 mg Lactated Ringer's (LR) infusion 400 mL * Agents Name O2% N2O O2 Air Sevoflurane Inspired Sevoflurane * Blood No blood administrations on file. Lines, Drains, and Airways Type Details Placement Removal RETIRED Surgical Site 06/28/19; 2255; Le ft; Leg; 07/08/20; 1200 06/28/19 2255 by Malena Lara RN 07/08/20 1200 by Bernardo Burgess RN RETIRED Wound 06/29/19; 0000; MASD (Moisture associated skin damage); Left; Breast; linear redness/excoriation under breast; 06/27/24 (Retired LDA, Removed/Completed by [facility] with LDA Utility); 1213 (Retired LDA, Removed/Completed by [facility] with LDA Utility) 06/29/19 0000 by Lizette Dutton RN 06/27/24 1213 by Discharge Provider, Automatic RETIRED Surgical Site 06/29/19; 0000; No ; Right, Lower; Ankle/malleolus; 06/27/24 (Retired LDA, Removed/Completed by [facility] with LDA Utility); 1213 (Retired LDA, Removed/Completed by [facility] with LDA Utility) 06/29/19 0000 by Lizette Dutton RN 06/27/24 1213 by Discharge Provider, Automatic RETIRED Wound 07/05/20; 1530; Yes; Open wound; Left; Porter/tibia; 07/08/20; 1200 07/05/20 1530 by Janis Stephens NP 07/08/20 1200 by Bernardo Burgess RN Peripheral IV Placement Date: 07/05/20; Placement Time: 1545; Catheter Size: 22 G; Orientation: Right; Location: Forearm; Technique: Anatomical landmarks; Inserted by: Trinity Crabtree RN; Insertion Attempts: 1; Patient Tolerance: Tolerated well; Removal Date: 07/11/20; Removal Time: 0645; Removal Reason: Infiltrated 07/05/20 1545 by Janis Stephens, YISSEL 07/11/20 0645 by Jesse Waterman RN External Urinary Device 07/07/20; 0100; Female; 07/12/20; 1638 07/07/20 0100 by Yarely Hopkins RN 07/12/20 1638 by Matilde Griffin RN Peripheral IV Placement Date: 07/07/20; Placement Time: 1745; Catheter Size: 22 G; Orientation: Right; Location: Antecubital, Forearm; Site Prep: Chlorhexidine; Technique: Anatomical landmarks; Inserted by: Marry Orr RN; Insertion Attempts: 2; Patient Tolerance: Tolerated well; Removal Date: 07/08/20; Removal Time: 1500; Removal Reason: Not present on admission 07/07/20 1745 by Mary Ann Enamorado RN 07/08/20 1500 by Daisy Wang, DARCI RETIRED Surgical Site 07/08/20; Yes; Lef t; Knee; 06/27/24 (Retired LDA, Removed/Completed by [facility] with LDA Utility); 1213 (Retired LDA, Removed/Completed by [facility] with LDA Utility) 07/08/20 0000 by Malena Lara RN 06/27/24 1213 by Discharge Provider, Automatic ETT Placement Date: 07/08/20; Placement Time: 1154 (created via procedure documentation); Mask Ventilation: 0; Technique: Direct laryngoscopy; Type: ETT - single; Single Lumen Tube Size: 7 mm; Cuffed: Yes; Laryngoscope: Cherry; Blade Size: 3; Location: Oral; Grade View: Grade I; Insertion Attempts: 1; Placement Verification: Auscultation, Capnometry; Removal Date: 07/08/20; Removal Time: 1440 07/08/20 1154 by Efren Cobb CRNA 07/08/20 1440 by Efren Cobb CRNA Peripheral IV Placement Date: 07/08/20; Placement Time: 1155 (created via procedure documentation); Catheter Size: 20 G; Orientation: Right; Location: Hand; Site Prep: Alcohol; Insertion Attempts: 2; Removal Date: 07/10/20; Removal Time: 1800; Removal Reason: Occluded 07/08/20 1155 by Efren Cobb, OIL FURNACE INSTALLER 07/10/20 1800 by Jesse Waterman RN documented in this encounter Social History Tobacco Use Types Packs/Day Years [...] on file documented as of this encounter OR Notes * Anesthesia Postprocedure Evaluation - Waylon Grimes MD - 07/08/2020 3:50 PM CST Patient: Celestina Ewing Procedure Summary Date: 07/08/20 Room / Location: [facility] OR POD 2 ROOM 205 / [facility] OR POD 2 Anesthesia Start: 1111 Anesthesia Stop: 1455 Procedure: AMPUTATION ABOVE KNEE (Left Thigh) Diagnosis: Leg skin lesion, left (Leg skin lesion, left [L98.9]) Surgeons: Jacobo Shoemaker MD Responsible Provider: Monroe Mariscal MD Anesthesia Type: general ASA Status: 3 Anesthesia Type: general Last vitals BP 137/82 Pulse 107 Temp 36 ??C (96.8 ??F) (Temporal) Resp 12 SpO2 98% Anesthesia Post Evaluation Patient location during evaluation: PACU Patient participation: complete - patient participated Level of consciousness: fully awake Pain management: adequate Airway patency: adequate Evidence of recall: no Anesthetic complications: no Cardiovascular status: acceptable and hemodynamically stable Respiratory status: acceptable and room air Hydration status: euvolemic Pt is: normothermic Nausea/Vomiting status: none Y UNIT FEEDER * Anesthesia Procedure Notes - Efren Cobb CRNA - 07/08/2020 11:55 AM CSTAssociated Order(s): Peripheral IV Catheter Peripheral IV Catheter Patient location: OR Staff: Placed by: Anesthesiologist: Monroe Mariscal MD Preprocedure prep: Prep solution: alcohol PPE: gloves and provider hat/mask PIV line: Laterality: right Site: hand Catheter size: 20 g Technique: palpatation Procedure details: good blood return and occlusive dressing applied Number of attempts: 2 Assessment: Events: patient tolerated procedure well with no complications Y UNIT FEEDER * Anesthesia Preprocedure Evaluation - Monroe Mariscal MD - 07/08/2020 11:54 AM CST Images from the original note were not included. Anesthesia Evaluation Pepper Kapil Ewing is a 69 y.o. female Procedure(s): AMPUTATION ABOVE KNEE Pre-Op Diagnosis Codes: * Leg skin lesion, left [L98.9] HISTORY HPI 69yo F with pmhx COPD on 4L baseline, COVID-19 positive, Patient with longstanding wound healing issue of this leg. Past Medical History Information obtained from: chart. Cardiovascular + Hypertension Respiratory + COPD + O2 use outside the hospital - chronic respiratory failure Rest O2: 4L/min. Gastrointestinal + GERD - on daily therapy. Musculoskeletal/Pain + Chronic pain Review of Systems + chronic pain PAT Summary and Plans Additional comments: Recommendations: 1. Please maintain an active type and screen. 2. Patient is at high risk for needing postoperative mechanical ventilation in the setting of high O2 requirement at baseline and now with COVID-19 (although relatively asymptomatic). Patient Active Problem List Diagnosis ??? Bipolar I disorder with anxious distress (CMS/HCC) ??? Intractable seizure disorder (CMS/HCC) ??? Moderate essential hypertension ??? Syncope due to sick sinus syndrome (CMS/HCC) ??? Open displaced comminuted fracture of shaft of left tibia, type IIIA, IIIB, or IIIC ??? Abnormal x-ray of extremity ??? Acute exacerbation of chronic low back pain ??? Biliary colic ??? Chronic lumbosacral pain ??? Chronic respiratory failure (CMS/HCC) ??? Closed displaced bimalleolar fracture of right lower leg ??? Deep venous insufficiency ??? Dyslipidemia, goal LDL below 100 ??? Full code status ??? Gastroesophageal reflux disease with stricture ??? Herpes simplex of female genitalia ??? History of hyperemesis gravidarum ??? Hyponatremia ??? Insomnia ??? Irritable bowel syndrome with constipation and diarrhea ??? Menopause present ??? Recurrent falls while walking ??? Transfusion-dependent anemia ??? Traumatic rhabdomyolysis (CMS/HCC) ??? Well child examination ??? COVID-19 ??? Left lower extremity infection ??? Leg skin lesion, left Past Medical History: Diagnosis Date ??? Asthma ??? COPD (chronic obstructive pulmonary disease) (CMS/HCC) ??? Heart murmur ??? Hyperlipidemia ??? Hypertension [...] Right 08/2009 ??? TOE FUSION Left 08/1994 OB History No obstetric history on file. Allergies Allergen Reactions ??? Fish Containing Products Anaphylaxis ??? Iodine Unknown ??? Latex Unknown ??? [place]-3 Fatty Acids Unknown ??? Other Unknown seafood ??? Sulfa (Sulfonamide Antibiotics) Unknown ??? Valium [Diazepam] Unknown Taking? Last Dose Start Date End Date Provider Daryl Plus Flow-Vu spacer 12/01/19 -- ProviderLucille MD albuterol HFA (PROVENTIL HFA,VENTOLIN HFA,PROAIR HFA) 90 mcg/actuation inhaler -- -- Provider, MD Lucille amLODIPine (NORVASC) 10 mg tablet -- -- Provider, HistoricalMD atorvastatin (LIPITOR) 10 mg tablet 07/04/19 -- Leroy Reddy MD Take 1 tablet (10 mg total) by mouth nightly baclofen (LIORESAL) 5 mg tablet 07/04/19 -- Leroy Reddy MD Take 0.5 tablets (2.5 mg total) by mouth 3 (three) times a day with meals busPIRone (BUSPAR) 5 mg tablet 01/07/20 -- Provider, MD Lucille cholecalciferol (cholecalciferol) 400 unit capsule -- -- Provider, HistoricalMD docusate sodium (COLACE) 100 mg capsule -- -- Provider, MD Lucille enoxaparin (LOVENOX) 40 mg/0.4 mL syringe 03/29/20 -- Provider, HistoricalMD famciclovir (FAMVIR) 250 mg tablet -- -- Provider, HistoricalMD fluticasone propionate (FLONASE) 50 mcg/actuation nasal spray 12/18/17 -- Provider, MD Lucille fluticasone propionate (FLOVENT HFA) 110 mcg/actuation inhaler -- -- Provider, MD Lucille furosemide (LASIX) 40 mg tablet -- -- Provider, HistoricalMD gabapentin (NEURONTIN) 400 mg capsule 07/04/19 -- Leroy Reddy MD Take 1 capsule (400 mg total) by mouth every 8 (eight) hours ipratropium-albuteroL (DUO-NEB) 0.5-2.5 mg/3 mL nebulizer solution 12/20/19 -- Provider, MD Lucille lidocaine (LIDODERM) 5 % 06/14/19 -- Provider, MD Lucille LORazepam (ATIVAN) 0.5 mg tablet 05/04/20 -- Provider, HistoricalMD metoprolol (LOPRESSOR) 25 mg tablet 07/04/19 -- Leroy Reddy MD Take 1 tablet (25 mg total) by mouth every 6 (six) hours Nyamyc powder 03/01/20 -- Lucille Junior MD olmesartan (BENICAR) 40 mg tablet -- -- Lucille Junior MD ondansetron (ZOFRAN) 4 mg tablet 12/30/19 -- Lucille Junior MD oxyCODONE (ROXICODONE) 10 mg tablet 07/06/19 -- Piedad Cardenas MD Take 1 tablet (10 mg total) by mouth every 4 (four) hours as needed for pain oxyCODONE-acetaminophen (PERCOCET) 5-325 mg per tablet 01/07/20 -- Lucille Junior MD pantoprazole DR (PROTONIX) 40 mg EC tablet -- -- Lucille Junior MD primidone (MYSOLINE) 50 mg tablet 05/05/20 -- Lucille Junior MD spironolactone (ALDACTONE) 25 mg tablet 03/06/20 03/06/21 Vinod Deshpande MD Take 1 tablet (25 mg total) by mouth daily vitamin E (AQUASOL E) 400 unit capsule -- -- Lucille Junior MD Ongoing Comment Hilda Red, OT 06/19/2019 9:37 PM zofran bisacodyl Current Facility-Administered Medications: ??? [SEP Hold] acetaminophen (TYLENOL) tablet 1,000 mg, 1,000 mg, oral, Q8H, 1,000 mg at 07/08/20955 ??? [SEP Hold] albuterol HFA (PROVENTIL HFA,VENTOLIN HFA,PROAIR HFA) 90 mcg/actuation inhaler 2 puff, 2 puff, inhalation, Q4H PRN (RT), 2 puff at 07/08/20 1029 ??? [SEP Hold] amLODIPine (NORVASC) tablet 10 mg, 10 mg, oral, Daily, 10 mg at 07/08/20955 ??? [SEP Hold] atorvastatin (LIPITOR) tablet 10 mg, 10 mg, oral, Nightly, 10 mg at 07/07/202044 ??? [SEP Hold] baclofen (LIORESAL) tablet 2.5 mg, 2.5 mg, oral, TID with meals, 2.5 mg at 07/08/2056 ??? [SEP Hold] busPIRone (BUSPAR) tablet 5 mg, 5 mg, oral, Daily, 5 mg at 07/08/20 0956 ??? [SEP Hold] cefepime (MAXIPIME) 1,000 mg/10 mL in sterile water (premix) 1,000 mg, 1,000 mg, intravenous, Q8H, Last Rate: 20 mL/hr at 07/08/20 0955, 1,000 mg at 07/08/20 0955 ??? [MAR Hold] docusate sodium (COLACE) capsule 100 mg, 100 mg, oral, Daily, 100 mg at 07/08/20954 ??? [Held by Provider] enoxaparin (LOVENOX) syringe 40 mg, 40 mg, subcutaneous, Daily-2100, 40 mg at 07/07/202045 ??? [MAR Hold] fluticasone propionate (FLONASE) 50 mcg/actuation nasal spray 2 spray, 2 spray, eachnostril, Daily, 2 spray at 07/07/20934 ??? [Held by Provider] furosemide (LASIX) tablet 40 mg, 40 mg, oral, BID, 40 mg at 07/06/20 0903 ??? [MAR Hold] gabapentin (NEURONTIN) capsule 400 mg, 400 mg, oral, Q8H, 400 mg at 07/08/20955 ??? [SEP Hold] HYDROmorphone (DILAUDID) injection 0.5 mg, 0.5 mg, intravenous, Q3H PRN, 0.5 mg at 07/08/20 0309 ??? Lactated Ringer's (LR) infusion, 30 mL/hr, intravenous, Continuous ??? Lactated Ringer's (LR) infusion, 30 mL/hr, intravenous, Continuous ??? [SEP Hold] losartan (COZAAR) tablet 50 mg, 50 mg, oral, Daily, 50 mg at 07/07/20 0945 ??? [SEP Hold] metoprolol tartrate (LOPRESSOR) immediate release tablet 25 mg, 25 mg, oral, Q6H KELIN, 25 mg at 07/08/20 0603 ??? [MAR Hold] ondansetron ODT (ZOFRAN-ODT) disintegrating tablet 4 mg, 4 mg, oral, Q4H PRN, 4 mg at 07/06/20 0034 ??? [MAR Hold] oxyCODONE (ROXICODONE) tablet 5 mg, 5 mg, oral, Q4H PRN, 5 mg at 07/08/20 1018 ??? [MAR Hold] pantoprazole DR (PROTONIX) extended release tablet 40 mg, 40 mg, oral, Daily, 40 mg at 07/08/20 0956 ??? [MAR Hold] sodium chloride 0.9% flush 0.5-20 mL, 0.5-20 mL, intra-catheter, Q8H KELIN, 10 mL at 07/08/20 0629 ??? [MAR Hold] sodium chloride 0.9% flush 0.5-20 mL, 0.5-20 mL, intra-catheter, PRN, 10 mL at 07/08/20 0310 ??? [MAR Hold] sodium chloride 0.9% flush 5-10 mL, 5-10 mL, intra-catheter, Q8H KELIN, 10 mL at 07/07/20 1514 ??? [MAR Hold] sodium chloride 0.9% flush 5-10 mL, 5-10 mL, intra-catheter, PRN ??? [Held by Provider] spironolactone (ALDACTONE) tablet 25 mg, 25 mg, oral, Daily, 25 mg at 07/06/20 0902 ??? [MAR Hold] vancomycin 1,250 mg/262.5 mL in sodium chloride 0.9% (premix) 1,250 mg, 15 mg/kg, intravenous, Q24H, 1,250 mg at 07/07/20 1837 Social History Tobacco Use Smoking Status Never Smoker Smokeless Tobacco Never Used Tobacco Comment Patient does not smoke Substance and Sexual Activity Alcohol Use Not Currently Substance and Sexual Activity Drug Use Never Family History Problem Relation Age of Onset ??? Heart disease Mother ??? Diabetes Mother ??? Emphysema Father ??? Diabetes Father ??? Diabetes Brother Vitals: 07/07/20 2335 07/08/20 0555 07/08/20 0700 BP: 135/58 118/50 132/63 Pulse: 76 96 78 Resp: 18 18 18 Temp: 37.1 ??C (98.8 ??F) 37 ??C (98.6 ??F) 37.1 ??C (98.8 ??F) SpO2: 100% 100% 100% PT: 07/05/2020: 14.6 sec* INR: 07/05/2020: 1.3* APTT: 07/05/2020: 32 sec Hgb A1C: 07/05/2020: 5.3 % CBC RBC: 07/07/2020: 3.16 M/cumm* RDW: No results found for requested labs within last 720 hours. MCHC: 07/07/2020: 32.3 g/dL MCH: 07/07/2020: 30.4 pg MCV: 07/07/2020: 94.0 fL Hct: 07/07/2020: 29.7 %* Hgb: 07/07/2020: 9.6 g/dL* WBC: 07/07/2020: 20.3 K/cumm* MPV: 07/07/2020: 9.6 fL Platelets: 07/07/2020: 436 K/cumm* RDW CV: 07/07/2020: 11.9 % RDW Sd: 07/07/2020: 40.9 fL BMP Glucose: 07/07/2020: 103 mg/dL Calcium: 07/07/2020: 8.9 mg/dL Sodium: 07/07/2020: 129 mmol/L* Potassium: 07/07/2020: 3.9 mmol/L CO2: 07/07/2020: 30 mmol/L Chloride: 07/07/2020: 93 mmol/L* BUN: 07/07/2020: 13 mg/dL Creatinine: 07/07/2020: 0.70 mg/dL DOS Physical Exam Medical history, medications, and allergies reviewed. Attestation: This PAT evaluation Airway Exam: Mallampati: II Cervical ROM: FROM Cardiovascular Exam: Rate: regular Rhythm: regular Pulmonary Exam: LCTA Anesthesia Plan ASA 3 My patient is approved for the Anesthesia Controlled Medication protocol when under care of a OIL FURNACE INSTALLER Planned anesthesia: General Consent and Attending signature: I and/or my designee have discussed the anesthesia plan, benefits, possible alternatives, parental presence at time of induction (if indicated), and clinically relevant risks that may include dental injury, unintentional awareness, and/or other complications. The patient and/or parent/legal guardian understand, and agree to proceed. All questions answered. Y UNIT FEEDER * Anesthesia Procedure Notes - Givens, Efren D., OIL FURNACE INSTALLER - 07/08/2020 11:50 AM CSTAssociated Order(s): Airway Airway Patient location: OR Urgency: elective Indications for airway management: anesthesia Difficult airway: no Staff: Supervising provider: Monroe Mariscal MD Placed by: OIL FURNACE INSTALLER: Efren Cobb CRNA Emergent airway documentation: Risks and benefits discussed: yes Consent obtained: yes Consent given by: patient Airway prep: Preoxygenated: yes Patient position: sniffing Mask difficulty assessment: 0 - not attempted Spontaneous ventilation during airway: absent Sedation level during airway: GA Final airway details: Final airway type: endotracheal airway Tube type: ETT ETT size: 7.0 mm Cuffed: yes Technique used for successful ETT placement: direct laryngoscopy Devices/Methods used in placement: anterior pressure/BURP Insertion site: oral Blade type: Cherry Blade size: 3 Cormack-Lehane (direct): grade I - full view of glottis Cuff volume: 7 mL Cuff inflated with: air ETT to lips: 22 cm Placement verified by: auscultation and CO2 detection Airway secured with: silk tape Number of attempts: 1no Y UNIT FEEDER documented in this encounter Plan of Treatment Not on file documented as of this encounter Procedures Procedure Name Priority Date/Time Associated Diagnosis Comments [place] AN PROCEDURE PLACEHOLDER Routine 07/08/2020 11:55 AM SPRAY UNIT FEEDER [place] AN PROCEDURE PLACEHOLDER Routine 07/08/2020 11:50 AM SPRAY UNIT FEEDER [place] AN ELECTIVE ENDOTRACHEAL AIRWAY Routine 07/08/2020 11:50 AM SPRAY UNIT FEEDER documented in this encounter Results * [place] AN PROCEDURE PLACEHOLDER (07/08/2020 11:55 AM SPRAY UNIT FEEDER) Narrative Efren Cobb CRNA - 07/08/2020 11:55 AM SPRAY UNIT FEEDER Efren Cobb CRNA ? 07/08/2020 11:55 AM Peripheral IV Catheter Patient location: OR Staff: Placed by: Anesthesiologist: Monroe Mariscal MD Preprocedure prep: Prep solution: alcohol PPE: gloves and provider hat/mask PIV line: Laterality: right Site: hand Catheter size: 20 g Technique: palpatation Procedure details: good blood return and occlusive dressing applied Number of attempts: 2 Assessment: Events: patient tolerated procedure well with no complications Monroe Mariscal MD ANESTHESIA ORDERABLES Final Resu lt * [place] AN ELECTIVE ENDOTRACHEAL AIRWAY, [place] AN PROCEDURE PLACEHOLDER (07/08/2020 11:50 AM SPRAY UNIT FEEDER) Narrative Efren Cobb CRNA - 07/08/2020 11:50 AM SPRAY UNIT FEEDER Efren Cobb CRNA ? 07/08/2020 11:54 AM Airway Patient location: OR Urgency: elective Indications for airway management: anesthesia Difficult airway: no Staff: Supervising provider: Monroe Mariscal MD Placed by: OIL FURNACE INSTALLER: Efren Cobb CRNA Emergent airway documentation: Risks and benefits discussed: yes Consent obtained: yes Consent given by: patient Airway prep: Preoxygenated: yes Patient position: sniffing Mask difficulty assessment: 0 - not attempted Spontaneous ventilation during airway: absent Sedation level during airway: GA Final airway details: Final airway type: endotracheal airway Tube type: ETT ETT size: 7.0 mm Cuffed: yes Technique used for successful ETT placement: direct laryngoscopy Devices/Methods used in placement: anterior pressure/BURP Insertion site: oral Blade type: Cherry Blade size: 3 Cormack-Lehane (direct): grade I - full view of glottis Cuff volume: 7 mL Cuff inflated with: air ETT to lips: 22 cm Placement verified by: auscultation and CO2 detection Airway secured with: silk tape Number of attempts: 1no Monroe Mariscal MD ANESTHESIA ORDERABLES Final Resu lt documented in this encounter Visit Diagnoses Not on filedocumented in this encounter Administered Medications Inactive Administered Medications - up to 3 most recent administrations Medication Order MAR Action Action Date Dose Rate Site dexAMETHasone (DECADRON) 4 mg/mL injection Administer over 2 Minutes, As needed, Starting on Wed07/08/20 at 1351, Anesthesia Intra-op Given 07/08/2020 1:51 PM SPRAY UNIT FEEDER 8 mg fentaNYL (SUBLIMAZE) preservative free injection intravenous, As needed, Starting on Wed07/08/20 at 1127, Anesthesia Intra-op Given 07/08/2020 11:47 AM SPRAY UNIT FEEDER 50 mcg Given 07/08/2020 11:27 AM SPRAY UNIT FEEDER 50 mcg HYDROmorphone (DILAUDID) injection intravenous, Administer over 2 Minutes, As needed, Starting on 07/08/20 at 1156, Anesthesia Intra-op Given 07/08/2020 12:47 PM SPRAY UNIT FEEDER 1 mg Given 07/08/2020 11:56 AM SPRAY UNIT FEEDER 1 mg ketorolac (TORADOL) injection As needed, Starting on 07/08/20 at 1351, Anesthesia Intra-op Given 07/08/2020 1:51 PM SPRAY UNIT FEEDER 15 mg Lactated Ringer's (LR) infusion 30 mL/hr, intravenous, Continuous, Starting on 07/06/20 at 2015, Pre-Op New Bag 07/08/2020 11:27 AM SPRAY UNIT FEEDER lidocaine PF (XYLOCAINE) 10 mg/mL (1 %) preservative free injection As needed, Starting on 07/08/20 at 1129, Anesthesia Intra-op Given 07/08/2020 11:29 AM SPRAY UNIT FEEDER 60 mg ondansetron (ZOFRAN) injection intravenous, Administer over 2 Minutes, As needed, Starting on Wed07/08/20 at 1351, Anesthesia Intra-op Given 07/08/2020 1:51 PM SPRAY UNIT FEEDER 4 mg phenylephrine (GUERITA-SYNEPHRINE) 0.5 mg/5 mL (100 mcg/mL) in sodium chloride 0.9% (premix) intravenous, As needed, Starting on Wed07/08/20 at 1142, Anesthesia Intra-op Given 07/08/2020 2:30 PM SPRAY UNIT FEEDER 100 mc g Given 07/08/2020 2:16 PM SPRAY UNIT FEEDER 150 mcg Given 07/08/2020 2:09 PM SPRAY UNIT FEEDER 50 mcg propofoL (DIPRIVAN) IV intravenous, As needed, Starting on Wed07/08/20 at 1129, Anesthesia Intra-op Given 07/08/2020 11:47 AM SPRAY UNIT FEEDER 20 mg Given 07/08/2020 11:29 AM SPRAY UNIT FEEDER 120 mg succinylcholine (ANECTINE) injection intravenous, As needed, Starting on 07/08/20 at 1129, Anesthesia Intra-op Given 07/08/2020 11:29 AM SPRAY UNIT FEEDER 80 mg documented in this encounter Care Teams Non Destructive Testing Supervisor Relationship Specialty Start Date End Date Bernardo Edwards MD [address] [place] [address] PCP - General 07/08/20 01/06/22 Jose Manuel Gruber MD Fellow Orthopedic Surgery 07/06/19 documented as of this encounter
--- OUTSIDE RECORDS SUMMARY | 2024-08-13 05:00 | XMS_ITS | Encounter Summary ---
Author Organization [facility] Healthcare Address [address] [place] [address] Care Team Providers Care Supervising Architect Name Role Phone Jose Manuel Gruber MD Unavailable [phone] Bernardo Edwards MD Primary Care Provider [phone] Encounter Details Date Type Department Care Team (Late st Contact Info) Description 07/06/2020 6:00 PM BODY COVERER - 07/06/2020 8:45 PM BODY COVERER Surgery [facility] Operating Room [address] [place] [address] Ethel Amaro MD [address] [place] [address] REMOVAL HARDWARE - TIBIA Surgery Details Date/Time Status Location OR Service Patient Class Case Class Case Type Trauma Case? 07/06/2020 6:00 PM Posted [facility] OR POD 2 210 Orthopaedics Inpatient Urgent - 24 hours Panel 1 Procedure LRB Anes Op Region Wound Class Comments REMOVAL HARDWARE - TIBIA Left General Thigh Class IV - Dirty or Infected IRRIGATION AND DEBRIDEMENT ? TIBIA Left General Leg Lower Class IV - Dirty or Infected Surgeon Surgeon Role Service Panel Brittany Jackson MD Resident - Assisting Orthopaedics 1 Ethel Amaro MD Primary Orthopaedic s 1 documented in this encounter Social History Tobacco [...] Sign Reading Time Taken Comments Blood Pressure 141/68 07/06/2020 8:20 PM BODY COVERER Pulse 97 07/06/2020 8:20 PM BODY COVERER Temperature 36 ??C (96.8 ??F) 07/06/2020 7:44 PM BODY COVERER Respiratory Rate 14 07/06/2020 8:20 PM BODY COVERER Oxygen Saturation 100% 07/06/2020 8:20 PM BODY COVERER Inhaled Oxygen Concentration - - Weight 87.5 kg (192 lb 12.8 oz) 07/05/2020 3:33 PM BODY COVERER Height 157.5 cm (5' 2 ) 07/05/2020 3:33 PM BODY COVERER Body Mass Index 35.26 07/05/2020 3:33 PM BODY COVERER documented in this encounter Discharge Summaries * Arianna Huynh MD - 07/12/2020 9:27 AM CST Inpatient Discharge Summary BRIEF OVERVIEW Admitting Provider: Vianney Caballero MD Discharge Provider: Christopher Jay MD Primary Care Physician at Discharge: Bernardo Edwards MD [phone] Admission Date: 07/05/2020 Discharge Date: 07/12/2020 Admission Location: [facility] Problems/Diagnoses: Principal Problem: Left lower extremity infection Active Problems: Moderate essential hypertension Open displaced comminuted fracture of shaft of left tibia, type IIIA, IIIB, or IIIC Chronic respiratory failure (CMS/HCC) Hyponatremia COVID-19 Leg skin lesion, left Resolved Problems: No resolved hospital problems. DETAILS OF HOSPITAL STAY Presenting Problem/History of Present Illness: Celestina Ansari is a 69 y.o. female with h/o traumatic open periprosthetic tibia/fibula fracture s/p ORIF (06/30/2019) and right medial malleolus fracture s/p ORIF (06/2019) complicated by poor wound healing s/p multiple courses of antibiotics, paroxysmal atrial fibrillation in setting of MRSA bacteremia (08/2019), chronic respiratory failure on 4L per pt 08/27 COPD and HTN presented to OSH for worsening swelling, tenderness and erythema of L leg wound. Pt also reports findings started 2 days agoas an abscess that later burst revealing purulent discharge (present in picture she showed me). States she has had multiple infections in this same site and recently completed a course of clindamycin. Denies fevers, shills, night sweats. ?? At OSH, pt was afebrile and hemodynamically stable. CXR read as concerning for OM. Per report, she received vancomycin x 1 and was transferred to [facility]. Also per report, pt was hyponatremic Na 123 (baseline 126-low 130s) but lab results not included in [facility] paper chart. ?? Of note, pt recently diagnosed with COVID at [facility] (per report 2 days prior to admission). Pt states she was having a cough and that at the SNF they regularly test patients. Denies fevers, chills, shortness of breath, abd pain, diarrhea, nausea, loss of smell or taste. She satting well on baseline 4LNC. ?? I reviewed pt's Epic chart and paper chart from [facility]. Hospital Course: Left leg infection- subcutaneous infection vs OM Pt has a history of open periprosthetic tibia/fibula fracture s/p definitive fixation and right medial malleolus fracture s/p ORIF (06/2019) complicated by poor wound healing s/p multiple courses of antibiotics.She presented to OSH with worsening tenderness, erythema and discharge from wound that had started prior to presentation. She was transferred given concern for OM. L Tib/fibula CT showed mildly displaced, angulated and nonunited fractures with findings concerning for infection. Ortho wasconsulted. Pt underwent I&D with removal of hardware on 07/06. Tissue cultures grew Proteus Quinn. Coli (pansusceptibile). Started on vancomycin and cefepime. ID following. 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 During surgery, bone cultures at the margin remain NGTD, so she was transitioned to Augmentin 875mg BID for planned 14 day course (first dose 07/12). Hard stop day after day 14. Pain control achieved with oxycodone 10mg q4h PRN, morphine 4mg q4h PRN and spot doses of dilaudid for breakthrough pain. She is discharged on Oxycontin 10mg BID and Oxycodone 5mg q4h PRN. ?? COVID-19 Per report, pt was tested for COVID at [facility] 2 days. Per pt, residents get regularly tested for COVIDand only symptom was cough. On baseline home 4L O2. Deferred treatment as pt only mildly symptomatic and on baseline O2. ?? #Hyponatremia Pt with history of hyponatremia (per report, baseline mid 120- low 130s). Na 126 on admission. No AMS. TSH wnl. Cortisol 17. Treated with gentle NS IVF. Lasix and spironolactone held. At discharge, Na 129. #COPD with chronic hypoxemic respiratory failure Patient is on 2-4L at baseline at her facility. She has remained on this during her admission. Continued PRN albuterol ?? #COVID-19, resolved Diagnosed in 05/2020, was on quarantine period during admission to hospital. Course has been uncomplicated and she has not had any increase in her home O2 requirement ?? #hyponatremia Baseline seems to be around this (mid 120s to low 130s.) 126 on admission and hvoering around here.No AMS. TSH stable, cortisol 17 ?? #HTN Continue home amlodipine 10mg, losartan 50mg, metoprolol tartrate 25mg q6h, aldactone 25mg, holdinghome lasix (?) this admission. - Start 40mg Lasix once daily (also should help w hyperK), monitor Cr and lytes ?? #HLD Continued home atorvastatin 10mg #GERD Continued home protonix 40mg daily #Chronic pain Continued home gabapentin 400mg q8h, baclofen #Anxiety Continued home ativan 0.5mg q6h PRN, buspar? Active Issues Requiring Follow-up: Soft tissue infection: needs 14 day course of Augmentin 875mg BID for planned 14 day course. She will need to continue PT/OT Pain: she currently is on Oxycontin and Oxycodone for her acute pain after amputation. May need titration after surgery pain improves Hyperkalemia to 5.2. Would recheck in 2 days. Test Results Pending at Discharge: Pending Labs Order Current Status Blood culture Blood Preliminary result Blood culture Blood Preliminary result Mycobacteriology (AFB) culture Tissue Leg, left Preliminary result Mycobacteriology (AFB) culture Tissue Leg, left Preliminary result Mycobacteriology (AFB) culture Tissue Leg, left Preliminary result Mycology (fungal) culture Tissue Leg, left Preliminary result Mycology (fungal) culture Tissue Leg, left Preliminary result Mycology (fungal) culture Tissue Leg, left Preliminary result Tissue aerobic and anaerobic culture and gram stain Bone Leg, left Preliminary result Operative Procedures Performed: Procedure(s): AMPUTATION ABOVE KNEE Washout Other Procedures: N/a Pertinent Test Results: Bone culture: No organisms to date (07/08-07/12) Soft tissue culture from washout 07/06 Report . (.) Final Report: Moderate Mixed aerobic and anaerobic microorganisms Includes the following: Moderate Proteus mirabilis Moderate Escherichia coli Organism PROTEUS MIRABILIS ESCHERICHIA COLI MIXED AEROBIC AND ANAEROBIC MICROORGANISMS Resulting Agency [facility] Susceptibility Proteus mirabilis INTERPRETATION Ampicillin Susceptible Ampicillin with Sulbactam Susceptible Cefazolin Susceptible Cefepime Susceptible Ceftazidime Susceptible Ceftriaxone Susceptible Ciprofloxacin Susceptible Gentamicin Susceptible Meropenem Susceptible Piperacillin/Tazobactam Susceptible Trimethoprim with Sulfamethoxazole Susceptible Susceptibility Escherichia coli INTERPRETATION Ampicillin Susceptible Ampicillin with Sulbactam Susceptible Cefazolin Susceptible Cefepime Susceptible Ceftazidime Susceptible Ceftriaxone Susceptible Ciprofloxacin Susceptible Gentamicin Susceptible Meropenem Susceptible Piperacillin/Tazobactam Susceptible Trimethoprim with Sulfamethoxazole Susceptible Discharge Details Physical Exam at Discharge: Discharge Condition: stable Pulse: 99 Resp: 18 BP: 148/66 Temp: 36.8 ??C (98.2 ??F) Weight: 87.5 kg (192 lb 12.8 oz) Pertinent Exam Findings at Discharge: Stump covered, well healing Patient on 4L, no wheezes RRR No RLE edema Discharge Disposition: Discharge to SNF Code Status at Discharge: full code Discharge Instructions: - continue to work with PT/OT - complete course of antibiotics Discharge Medications: Current Medications TAKE these medications Aerochamber Plus Flow-Vu spacer Generic drug: inhalational spacing device albuterol HFA 90 mcg/actuation inhaler Inhale 2 puffs every 4 (four) hours as needed for shortness of breath. Indications: Asthma Attack For: asthma attack Commonly known as: PROVENTIL HFA,VENTOLIN HFA,PROAIR HFA amoxicillin-clavulanate 875-125 mg per tablet Take 1 tablet by mouth 2 (two) times a day for 27 doses For: Skin/Soft Tissue Infection Commonly known as: AUGMENTIN atorvastatin 10 mg tablet Take 1 tablet (10 mg total) by mouth nightly Commonly known as: LIPITOR baclofen 5 mg tablet Take 0.5 tablets (2.5 mg total) by mouth 3 (three) times a day with meals Commonly known as: LIORESAL busPIRone 5 mg tablet Commonly known as: BUSPAR cholecalciferol 400 unit capsule Take 400 Units by mouth daily. Indications: Vitamin D deficiency For: Vitamin D deficiency Commonly known as: VITAMIN D-3 docusate sodium 100 mg capsule Take 100 mg by mouth daily. Indications: constipation For: constipation Commonly known as: COLACE enoxaparin 40 mg/0.4 mL syringe Commonly known as: LOVENOX famciclovir 250 mg tablet Take 250 mg by mouth 2 (two) times a day. Indications: Other (complete free text reason below), herpes For: Other (complete free text reason below), herpes Commonly known as: FAMVIR * fluticasone propionate 110 mcg/actuation inhaler Inhale 2 puffs daily. Indications: Controller Medication for Asthma For: controller medication for asthma Commonly known as: FLOVENT HFA * fluticasone propionate 50 mcg/actuation nasal spray Administer 2 sprays into each nostril daily Commonly known as: FLONASE furosemide 40 mg tablet Take 40 mg by mouth 2 (two) times a day. Indications: visible water retention For: visible water retention Commonly known as: LASIX gabapentin 400 mg capsule Take 1 capsule (400 mg total) by mouth every 8 (eight) hours Commonly known as: NEURONTIN ipratropium-albuteroL 0.5-2.5 mg/3 mL nebulizer solution Commonly known as: DUO-NEB lidocaine 5 % Place 1 patch on the skin daily Commonly known as: LIDODERM LORazepam 0.5 mg tablet Take 0.5 mg by mouth every 8 (eight) hours as needed for anxiety Commonly known as: ATIVAN metoprolol tartrate 25 mg immediate release tablet Take 1 tablet (25 mg total) by mouth every 6 (six) hours Commonly known as: LOPRESSOR Norvasc 10 mg tablet Take 10 mg by mouth daily. Indications: high blood pressure For: high blood pressure Generic drug: amLODIPine Nyamyc powder Generic drug: nystatin olmesartan 40 mg tablet Take 40 mg by mouth daily. Indications: high blood pressure For: high blood pressure Commonly known as: BENICAR ondansetron 4 mg tablet Commonly known as: ZOFRAN ondansetron ODT 8 mg disintegrating tablet Take 1 tablet (8 mg total) by mouth every 8 (eight) hours as needed for nausea or vomiting Commonly known as: ZOFRAN-ODT * oxyCODONE 5 mg immediate release tablet Take 1 tablet (5 mg total) by mouth every 4 (four) hours as needed for pain For: pain Commonly known as: ROXICODONE * oxyCODONE ER 10 mg 12 hr abuse-deterrent tablet Take 1 tablet (10 mg total) by mouth 2 (two) times a day Commonly known as: OxyCONTIN pantoprazole DR 40 mg EC tablet Take 40 mg by mouth daily. Indications: Stress Ulcer Prophylaxis For: Stress Ulcer Prophylaxis Commonly known as: PROTONIX primidone 50 mg tablet Commonly known as: MYSOLINE ramelteon 8 mg tablet Take 1 tablet (8 mg total) by mouth nightly For: difficulty falling asleep Commonly known as: ROZEREM spironolactone 25 mg tablet Take 1 tablet (25 mg total) by mouth daily Commonly known as: ALDACTONE triamcinolone 0.1 % cream Apply topically 2 (two) times a day Commonly known as: KENALOG vitamin E 400 unit capsule Take 800 Units by mouth daily. Indications: deficiency of vitamin E For: deficiency of vitamin E Commonly known as: AQUASOL E * This list has 4 medication(s) that are the same as other medications prescribed for you. Read the directions carefully, and ask your doctor or other care provider to review them with you. Outpatient Follow-Up: Future Appointments Date Time Provider Department Center 07/30/2020 8:00 AM Jacobo Shoemaker MD [facility] OS Cosigned by Christopher Jay MD at 07/12/2020 3:20 PM BODY COVERER COVERER COVERER Associated attestation - Christopher Jay MD - 07/12/2020 3:20 PM BODY COVERER I have seen and examined the patient on 07/12/20. I agree with the findings and plan of care as documented in the resident's/fellow's note.. documented in this encounter Medications at Time [...] a day 60 tablet 0 04/15/20 22 triamcinolone (KENALOG) 0.1 % cream Apply topically 2 (two) times a day 30 g 0 07/30/19 21 documented as of this encounter Ordered Prescriptions Prescription Sig Dispense Quantity Refills Last Filled Start Date End Date ramelteon (ROZEREM) 8 mg tabletIndications:Sl eep-Onset Insomnia Take 1 tablet (8 mg total) by mouth nightly 30 tablet 11 07/12/2020 ondansetron ODT (ZOFRAN-ODT) 8 mg disintegrating tablet Take 1 tablet (8 mg total) by mouth every 8 (eight) hours as needed for nausea or vomiting 20 tablet 07/12/2020 oxyCODONE ER (OxyCONTIN) 10 mg 12 hr abuse-deterrent tablet Take 1 tablet (10 mg total) by mouth 2 (two) times a day 60 tablet 07/12/2020 2 oxyCODONE ER (OxyCONTIN) 10 mg 12 hr abuse-deterrent tablet Take 1 tablet (10 mg total) by mouth 2 (two) times a day 60 tablet 07/12/2020 0 oxyCODONE (ROXICODONE) 5 mg immediate release tabletIndications:Pa in Take 1 tablet (5 mg total) by mouth every 4 (four) hours as needed for pain 120 tablet 07/12/2020 1 oxyCODONE ER (OxyCONTIN) 10 mg 12 hr abuse-deterrent tablet Take 1 tablet (10 mg total) by mouth 2 (two) times a day 0 07/12/2020 0 oxyCODONE (ROXICODONE) 5 mg immediate release tabletIndications:Pa in Take 1 tablet (5 mg total) by mouth every 4 (four) hours as needed for pain 07/12/2020 0 triamcinolone (KENALOG) 0.1 % cream Apply topically 2 (two) times a day 30 g 07/12/2020 1 amoxicillin-clavulan ate (AUGMENTIN) 875-125 mg per tabletIndications:Sk in/Soft Tissue Infection Take 1 tablet by mouth 2 (two) times a day for 27 doses 27 tablet 07/12/2020 1 documented in this encounter Discharge Disposition Disposition Code Departure Means Destination Discharge to [facility] documented in this encounter Progress Notes * Keren Field MSW - 07/12/2020 1:03 PM CST 07/12/20 1259 Discharge Summary Chart reviewed For Medical Necessity Does patient have a planned readmission to hospital planned? No Discharge Disposition SNF, Commercial Insurance, Short term Skilled Specify Facility [facility] Facility Contact Number [phone] Bernardo Edwards Discharge Records Transfer Form Completed;Chart Copied Discharge Additional Assistance Does the patient need discharge transport arranged? Yes Has discharge transport been arranged? Yes Details of Transportation [facility] (Trip#: [id number]) What day is the transport expected? 07/12/20 What time is the transport expected? 1400 Discharge Transportation Communication Mode of transport has been discussed with the patient/family. All are agreeable to the plan and understand their responsibilities to ensure the safe transfer. No further CM/SW intervention is anticipated at this time. Post Discharge Care Provider Post Discharge Care Plan DC Summary has been faxed to next level of care provider (see Follow Up Providers) Patient agreed to d/c plan. Elton from [facility] accepted patient for placement today (Report: [phone], ). Patient is medically stable, chart copied,insurance approved ([employer]: [id number])René willing to take patient, and transfer paperwork completed. [facility] arranged to transport patient to [facility] on 07/12/2020 at 2:00pm (Trip#: [id number]). Patient/family informed that while medical team will do everything possible for Medicare to pay forthe ambulance there is a chance that Medicare will not pay, as Medicare's criteria for ambulances are often stricter than the medical team. Social work informed patient/family that even if Medicare does pay, it may not cover the full cost of the trip as Medicare is now only covering the cost to nearest available facility. Social work informed patient/family that they will be responsible for the remainder of the bill. Patient/family voiced understanding. Keren Field LMSW [phone] COVERER * Arianna Huynh MD - 07/12/2020 1:01 PM CST Medicine Firm Transfer Note Subjective SUBJECTIVE Interval events - required dilaudid x1 last night - no acute events overnight - cultures remain NGTD; ID has entered final plan of Augmentin 875 BID for 14 days . Subjective: Feeling well. Her pain is well controlled at the time of exam. Objective OBJECTIVE Scheduled Medications: ??? [Held by Provider] acetaminophen, 1,000 mg, oral, Q8H ??? amLODIPine, 10 mg, oral, Daily ??? amoxicillin-clavulanate, 875 mg of amoxicillin, oral, BID ??? atorvastatin, 10 mg, oral, Nightly ??? baclofen, 2.5 mg, oral, TID with meals ??? bisacodyl EC, 10 mg, oral, Nightly ??? busPIRone, 5 mg, oral, Daily ??? docusate sodium, 200 mg, oral, Daily ??? enoxaparin, 40 mg, subcutaneous, Daily-2100 ??? fluticasone propionate, 2 spray, each nostril, Daily ??? furosemide, 40 mg, oral, Daily ??? gabapentin, 400 mg, oral, Q8H ??? losartan, 50 mg, oral, Daily ??? metoprolol tartrate, 25 mg, oral, Q6H KELIN ??? pantoprazole DR, 40 mg, oral, Daily ??? ramelteon, 8 mg, oral, Nightly ??? sodium chloride 0.9%, 0.5-20 mL, intra-catheter, Q8H KELIN ??? sodium chloride 0.9%, 5-10 mL, intra-catheter, Q8H KELIN ??? [Held by Provider] spironolactone, 25 mg, oral, Daily ??? triamcinolone, , topical, BID Continuous Medications: PRN Medications: albuterol HFA ??? LORazepam ??? morphine ??? ondansetron ODT ??? oxyCODONE ??? sodium chloride 0.9% ??? sodium chloride 0.9% Vitals: Most Recent : Vitals: 07/12/20 1144 BP: 148/66 Pulse: 99 Resp: Temp: SpO2: 24hr Min/Max: Temp Min: 36.4 ??C (97.5 ??F) Max: 37.2 ??C (99 ??F) Pulse Min: 87 Max: 102 BP Min: 115/50 Max: 148/66 Resp Min: 18 Max: 20 SpO2 Min: 95 % Max: 100 % I/O: I/O last 2 completed shifts: In: 320 [P.O.:300; I.V.:10; IV Piggyback:10] Out: 2550 [Urine:2550] No intake/output data recorded. Physical exam: Constitutional: Vitals reviewed. In no acute distress. Head: Normocephalic. Atraumatic. Eyes: Sclera anicteric. Extraocular eye movements intact. ENT: Moist oral mucous membranes. Neck: Supple. Trachea midline. Cardiovascular: Normal rate. Regular rhythm. Respiratory: Non-labored respirations. Clear to auscultation bilaterally. Gastrointestinal: Soft. Nontender. Nondistended. Normoactive bowel sounds. Neurologic: Alert and oriented to person, place, time, and situation. Grossly non-focal exam. Musculoskeletal/Extremities: Warm and well-perfused. No lower extremity edema. L AKA, stump is bandaged and wrapped. Psychiatric: Pleasant and conversant. Mood congruent with affect. Judgement and insight intact. Lab/Radiology/Diagnostic Review: Recent Results (from the past 24 hour(s)) Vancomycin, trough Please draw trough before tonight's dose. Can draw all AM labs at that time. Thanks! Collection Time: 07/11/20 5:31 PM Result Value Ref Range Vancomycin, trough 8.6 (L) 10.0 - 20.9 mcg/mL Comprehensive metabolic panel Collection Time: 07/11/20 5:31 PM Result Value Ref Range Sodium 128 (L) 135 - 145 mmol/L Potassium, pl 5.2 (H) 3.3 - 4.9 mmol/L Chloride 92 (L) 97 - 110 mmol/L CO2 28 22 - 32 mmol/L Anion gap 8 2 - 15 mmol/L BUN 11 8 - 25 mg/dL Creatinine 0.70 0.60 - 1.10 mg/dL Glucose 100 70 - 199 mg/dL Calcium 8.8 8.5 - 10.3 mg/dL Bilirubin, total 0.2 0.1 - 1.2 mg/dL Protein, pl 6.7 6.5 - 8.5 g/dL Albumin 2.6 (L) 3.5 - 5.0 g/dL Alk phos 134 (H) 40 - 130 Units/L ALT 16 7 - 45 Units/L AST 31 10 - 45 Units/L CBC with auto differential Collection Time: 07/11/20 5:31 PM Result Value Ref Range WBC 13.0 (H) 3.8 - 9.9 K/cumm Hgb 7.6 (L) 11.9 - 15.5 g/dL Hct 24.4 (L) 35.6 - 45.5 % Plt 351 150 - 400 K/cumm MPV 9.9 9.1 - 12.3 fL RBC 2.54 (L) 3.90 - 5.20 M/cumm MCV 96.1 81.3 - 96.4 fL MCH 29.9 27.1 - 33.3 pg MCHC 31.1 (L) 32.3 - 35.7 g/dL RDW CV 12.2 11.1 - 14.9 % RDW SD 42.8 35.7 - 48.1 fL NRBC abs 0.00 0.00 - 0.01 K/cumm Differential, auto Collection Time: 07/11/20 5:31 PM Result Value Ref Range Neutrophil abs 8.4 (H) 1.7 - 6.5 K/cumm Imm gran abs 0.7 (H) 0.0 - 0.1 K/cumm Lymphocyte abs 2.3 0.8 - 3.3 K/cumm Monocyte abs 1.4 (H) 0.2 - 0.8 K/cumm Eosinophil abs 0.3 0.0 - 0.5 K/cumm Basophil abs 0.1 0.0 - 0.1 K/cumm Neutrophil pct 64.1 % Imm gran pct 5.3 % Lymphocyte pct 17.7 % Monocyte pct 10.4 % Eosinophil pct 2.1 % Basophil pct 0.4 % Magnesium Collection Time: 07/11/20 5:31 PM Result Value Ref Range Magnesium 2.0 1.4 - 2.5 mg/dL Basic metabolic panel Collection Time: 07/12/20 9:38 AM Result Value Ref Range Sodium 129 (L) 135 - 145 mmol/L Potassium, pl 5.1 (H) 3.3 - 4.9 mmol/L Chloride 92 (L) 97 - 110 mmol/L CO2 28 22 - 32 mmol/L Anion gap 9 2 - 15 mmol/L BUN 10 8 - 25 mg/dL Creatinine 0.64 0.60 - 1.10 mg/dL Glucose 169 70 - 199 mg/dL Calcium 8.8 8.5 - 10.3 mg/dL CBC with auto differential Collection Time: 07/12/20 9:38 AM Result Value Ref Range WBC 12.9 (H) 3.8 - 9.9 K/cumm Hgb 8.7 (L) 11.9 - 15.5 g/dL Hct 26.3 (L) 35.6 - 45.5 % Plt 322 150 - 400 K/cumm MPV 9.5 9.1 - 12.3 fL RBC 2.73 (L) 3.90 - 5.20 M/cumm MCV 96.3 81.3 - 96.4 fL MCH 31.9 27.1 - 33.3 pg MCHC 33.1 32.3 - 35.7 g/dL RDW CV 12.2 11.1 - 14.9 % RDW SD 42.4 35.7 - 48.1 fL NRBC abs 0.00 0.00 - 0.01 K/cumm Differential, auto Collection Time: 07/12/20 9:38 AM Result Value Ref Range Neutrophil abs 8.2 (H) 1.7 - 6.5 K/cumm Imm gran abs 0.6 (H) 0.0 - 0.1 K/cumm Lymphocyte abs 2.5 0.8 - 3.3 K/cumm Monocyte abs 1.2 (H) 0.2 - 0.8 K/cumm Eosinophil abs 0.2 0.0 - 0.5 K/cumm Basophil abs 0.1 0.0 - 0.1 K/cumm Neutrophil pct 63.7 % Imm gran pct 4.7 % Lymphocyte pct 19.6 % Monocyte pct 9.5 % Eosinophil pct 1.9 % Basophil pct 0.6 % Micro: 07/06/20 Micro: --Operative tissue culture left leg x 3 growing E coli and Proteus mirabilis (pansensitive). ?? 07/08/20 Micro: --Operate left leg bone (residual femur) culture with moderate PMNs but no organisms. Culture results pending. --Surgical pathology pending. Susceptibility Proteus mirabilis Escherichia coli INTERPRETATION INTERPRETATION Ampicillin Susceptible Susceptible Ampicillin with Sulbactam Susceptible Susceptible Cefazolin Susceptible Susceptible Cefepime Susceptible Susceptible Ceftazidime Susceptible Susceptible Ceftriaxone Susceptible Susceptible Ciprofloxacin Susceptible Susceptible Gentamicin Susceptible Susceptible Meropenem Susceptible Susceptible Piperacillin/Tazobactam Susceptible Susceptible Trimethoprim with Sulfamethoxazole Susceptible Susceptible Assessment/Plan ASSESSMENT & PLAN Celestina Ansari is a 69 y.o. female w/PMH of HTN, GERD, bipolar and seizure disorder, sick sinus syndrome, COPD on 4L at baseline, recent COVID-19 (+), and complex L-tibia fx s/p ORIF and R-ankle fxs/p ORIF (both on 06/30) c/b poor wound healing s/p multiple abx courses (cephalexin, clinda); now admitted for LLE HW infection and c/f OM, now s/p L AKA #LLE infection Complex L tibia fx s/p ORIF and R ankle fx s/p ORIF c/b poor wound healing s/p multiple abx coursesadmitted for LLE HW infection and c/f osteomyelitis (exam probes to bone). Initial CRP 236, ESR 100, WBC 24K. On admission, CT tib/fib showed periprosthetic fracture of L prox tib/fib, mildly displaced, angulated, nonunited with overlying periosteal reaction concerning for infection. - OR 07/06 for washout. Cultures: E coli, Proteus (suscpetibility as above, scott susceptible) - OR 07/08 with ortho for L AKA. Cultures from that time are NGTD. Surg path as of 07/11 indicates positive evidence of infection at resection margins. - Abx: has been on Vanc and Cefe empirically. ID has been following. (discontinue vanc; continue cefe. Can transition to augmentin tomorrow if NGTD). Plan: - bone cultures remain NGTD - Discontinue Cefepime; transition to Augmentin today per ID final recs - Pain control; Oxycodone 10mg q4h PRN, Morphine 4mg IV q4h PRN - transition to oxycontin and oxycodone on discharge - NWB left lower extremity. - Highway Patrol Pilot placed stump coat maker / ampushield. Awaiting delivery of limb protector. - not interested in prosthesis at this time - PT/OT consults. - Plan for patient to return to her prior SNF when medically stable with ongoing PT/OT. - Ortho has signed off; has follow up 07/30 #COPD with chronic hypoxemic respiratory failure Patient is on 2-4L at baseline at her facility. She has remained on this during her admission - continue o2 supplementation - home flonase - albuterol PRN #COVID-19, resolved Diagnosed in 05/2020, was on quarantine period during admission to hospital. Course has been uncomplicated and she has not had any increase in her home O2 requirement #hyponatremia Baseline seems to be around this (mid 120s to low 130s.) 126 on admission and hvoering around here.No AMS. TSH stable, cortisol 17 #HTN Continue home amlodipine 10mg, losartan 50mg, metoprolol tartrate 25mg q6h, aldactone 25mg, holdinghome lasix (?) this admission 2/2 hyponatremia with no improvement. #HLD Continue home statin 10mg #GERD Continue home protonix 40mg daily #Chronic pain - continue SPRAY APPLICATOR gabapentin 400mg q8h, baclofen #Anxiety Continue home ativan 0.5mg q6h PRN, buspar Code Status: Full Code Diet: Adult Diet Regular DVT Prophylaxis: Lovenox Access: PIV Dispo: return to previous SNF today Arianna Huynh MD, PGY1 Cosigned by Christopher Jay MD at 07/12/2020 3:14 PM BODY COVERER COVERER COVERER * Nancie Isabel RN - 07/11/2020 6:48 PM [place] [id number]. 1800 dose of vanc held per MD Martinez. COVERER * Ernesto Devine MD PhD - 07/11/2020 5:21 PM CST Orthopaedic Surgery Daily Progress HPI: Celestina Ansari is a69y F p/w L T3 open periprosthetic tib/fib shaft fx periprosthetic infection s/p 2 weeks worsening erythema, 2d purulent drainage. Repeat I&D, revision ORIF w/ [facility] (06/30/19),last seen 05/13. Completed PO Clinda 7d w/o improvement, +f/c. Not on anticoag. Exam: AFVSS 2x2cm anterior, 5mm ant- medial proximal wound surrounding erythema, expressible purulent dc, probes to bone. NVI at baseline. PMH: seizures, bipolar, HTN, sick sinus syndrome, COPD (4L baseline). SH: WC bound in SNF since surg. Subjective Interval History: S/p L aka - doing well post op. Dressings have been changed and Highway Patrol Pilot protocol initiated. Objective Vitals: 24hr Min/Max: Temp Min: 36.4 ??C (97.5 ??F) Max: 36.9 ??C (98.4 ??F) Pulse Min: 72 Max: 105 BP Min: 132/56 Max: 154/78 Resp Min: 18 Max: 20 SpO2 Min: 99 % Max: 100 % I/O last 2 completed shifts: In: 470 [P.O.:460; I.V.:10] Out: 3000 [Urine:3000] I/O this shift: In: 320 [P.O.:300; I.V.:10; IV Piggyback:10] Out: 600 [Urine:600] Physical Exam: Awake, alert, oriented No acute distress Breathing regular and unlabored LLE: Stump coat maker in place Sensory intact to stump Laboratory review: OR cultures w PMNs but no orgs Assessment 69F with L T3 open periprosthetic tib/fib shaft fx with periprosthetic infection now status post L AKA. Plan ??? PT postop ??? Nonweightbearing left lower extremity ??? Pain control (gabapentin/toradol/ etc: should be multimodal) ??? Diet per primary team ??? Q4 NV checks ??? Antibiotics per Infectious Disease team, okay to d/c once ID final recs ??? Follow OR cultures ??? DVT ppx: Per primary team, we prefer Lovenox in house and at d/c ? ? Recommend PM&R c/s for amputation evaluation ??? Ani is following for prosthetics. ??? Ortho to sign off at this point. We have coordinated out pt f/u for 07/30. Ernesto Devine MD PhD Orthopaedic Surgery PGY-2 ? During normal business hours - If you know the resident's name on the appropriate orthopaedic surgery team, please use [email or web address] to page resident directly. ? If you have questions overnight or can't reach the appropriate resident, please call the Orthopaedic Surgery Consult Pager [phone] to have your questions answered or be directed to the correctOrthopaedic Surgery resident. COVERER * Arianna Huynh MD - 07/11/2020 5:18 PM CST Medicine Firm Transfer Note Subjective SUBJECTIVE Brief hospital course Pepper Kapil Ansari is a 69 y.o. female with a history of HTN, HLD, chronic pain, COPD and open periprostehtir tib/fib fracture s/p ORIF and definitive fixatio nand R medial malleolus fracture s/p ORIF c/b poor wound healing and multiple wound infections who initially presented with osteomyelitiis andhardware infection. She underwent removal of hardware and debridement on 07/06 (during which tissueculture grew E coli and Proteus) followed by AKA with ortho on 07/08. She has since been followed by ID and was started on empiric vancomycin and cefepime. E coli and proteus showed scott susceptible and cultures from [facility] remain NGTD. Currently pending final ID recs prior to discharge. Subjective: Feeling well. Her pain has remained well controlled. She has no complaints. Objective OBJECTIVE Scheduled Medications: ??? [Held by Provider] acetaminophen, 1,000 mg, oral, Q8H ??? amLODIPine, 10 mg, oral, Daily ??? atorvastatin, 10 mg, oral, Nightly ??? baclofen, 2.5 mg, oral, TID with meals ??? bisacodyl EC, 10 mg, oral, Nightly ??? busPIRone, 5 mg, oral, Daily ??? cefepime, 1,000 mg, intravenous, Q8H ??? docusate sodium, 200 mg, oral, Daily ??? enoxaparin, 40 mg, subcutaneous, Daily-2100 ??? fluticasone propionate, 2 spray, each nostril, Daily ??? [Held by Provider] furosemide, 40 mg, oral, BID ??? gabapentin, 400 mg, oral, Q8H ??? losartan, 50 mg, oral, Daily ??? metoprolol tartrate, 25 mg, oral, Q6H KELIN ??? pantoprazole DR, 40 mg, oral, Daily ??? ramelteon, 8 mg, oral, Nightly ??? sodium chloride 0.9%, 0.5-20 mL, intra-catheter, Q8H KELIN ??? sodium chloride 0.9%, 5-10 mL, intra-catheter, Q8H KELIN ??? spironolactone, 25 mg, oral, Daily ??? vancomycin, 1,750 mg, intravenous, Q24H Continuous Medications: ??? Lactated Ringer's, 30 mL/hr, Last Rate: Stopped (07/08/20 1605) PRN Medications: albuterol HFA ??? HYDROmorphone ??? LORazepam ??? morphine ??? ondansetron ODT ??? oxyCODONE ??? sodium chloride 0.9% ??? sodium chloride 0.9% Vitals: Most Recent : Vitals: 07/11/20 1526 BP: 136/68 Pulse: 87 Resp: 18 Temp: 36.4 ??C (97.5 ??F) SpO2: 100% 24hr Min/Max: Temp Min: 36.4 ??C (97.5 ??F) Max: 36.9 ??C (98.4 ??F) Pulse Min: 72 Max: 105 BP Min: 132/56 Max: 154/78 Resp Min: 18 Max: 20 SpO2 Min: 99 % Max: 100 % I/O: I/O last 2 completed shifts: In: 470 [P.O.:460; I.V.:10] Out: 3000 [Urine:3000] I/O this shift: In: 320 [P.O.:300; I.V.:10; IV Piggyback:10] Out: 600 [Urine:600] Physical exam: Constitutional: Vitals reviewed. In no acute distress. Head: Normocephalic. Atraumatic. Eyes: Sclera anicteric. Extraocular eye movements intact. ENT: Moist oral mucous membranes. Neck: Supple. Trachea midline. Cardiovascular: Normal rate. Regular rhythm. Respiratory: Non-labored respirations. Clear to auscultation bilaterally. Gastrointestinal: Soft. Nontender. Nondistended. Normoactive bowel sounds. Neurologic: Alert and oriented to person, place, time, and situation. Grossly non-focal exam. Musculoskeletal/Extremities: Warm and well-perfused. No lower extremity edema. L AKA, stump is bandaged and wrapped. Psychiatric: Pleasant and conversant. Mood congruent with affect. Judgement and insight intact. Lab/Radiology/Diagnostic Review: Recent Results (from the past 24 hour(s)) Comprehensive metabolic panel Collection Time: 07/10/20 9:04 PM Result Value Ref Range Sodium 128 (L) 135 - 145 mmol/L Potassium, pl 5.1 (H) 3.3 - 4.9 mmol/L Chloride 92 (L) 97 - 110 mmol/L CO2 28 22 - 32 mmol/L Anion gap 8 2 - 15 mmol/L BUN 7 (L) 8 - 25 mg/dL Creatinine 0.56 (L) 0.60 - 1.10 mg/dL Glucose 130 70 - 199 mg/dL Calcium 8.8 8.5 - 10.3 mg/dL Bilirubin, total 0.2 0.1 - 1.2 mg/dL Protein, pl 7.1 6.5 - 8.5 g/dL Albumin 2.9 (L) 3.5 - 5.0 g/dL Alk phos 135 (H) 40 - 130 Units/L ALT 12 7 - 45 Units/L AST 28 10 - 45 Units/L CBC with auto differential Collection Time: 07/10/20 9:04 PM Result Value Ref Range WBC 22.8 (H) 3.8 - 9.9 K/cumm Hgb 10.4 (L) 11.9 - 15.5 g/dL Hct 32.3 (L) 35.6 - 45.5 % Plt 329 150 - 400 K/cumm MPV 9.7 9.1 - 12.3 fL RBC 3.40 (L) 3.90 - 5.20 M/cumm MCV 95.0 81.3 - 96.4 fL MCH 30.6 27.1 - 33.3 pg MCHC 32.2 (L) 32.3 - 35.7 g/dL RDW CV 11.9 11.1 - 14.9 % RDW SD 41.5 35.7 - 48.1 fL NRBC abs 0.00 0.00 - 0.01 K/cumm Differential, auto Collection Time: 07/10/20 9:04 PM Result Value Ref Range Neutrophil abs 12.6 (H) 1.7 - 6.5 K/cumm Imm gran abs 1.0 (H) 0.0 - 0.1 K/cumm Lymphocyte abs 4.3 (H) 0.8 - 3.3 K/cumm Monocyte abs 4.7 (H) 0.2 - 0.8 K/cumm Eosinophil abs 0.1 0.0 - 0.5 K/cumm Basophil abs 0.1 0.0 - 0.1 K/cumm Neutrophil pct 55.4 % Imm gran pct 4.2 % Lymphocyte pct 18.9 % Monocyte pct 20.6 % Eosinophil pct 0.4 % Basophil pct 0.5 % Micro: 07/06/20 Micro: --Operative tissue culture left leg x 3 growing E coli and Proteus mirabilis (pansensitive). ?? 07/08/20 Micro: --Operate left leg bone (residual femur) culture with moderate PMNs but no organisms. Culture results pending. --Surgical pathology pending. Susceptibility Proteus mirabilis Escherichia coli INTERPRETATION INTERPRETATION Ampicillin Susceptible Susceptible Ampicillin with Sulbactam Susceptible Susceptible Cefazolin Susceptible Susceptible Cefepime Susceptible Susceptible Ceftazidime Susceptible Susceptible Ceftriaxone Susceptible Susceptible Ciprofloxacin Susceptible Susceptible Gentamicin Susceptible Susceptible Meropenem Susceptible Susceptible Piperacillin/Tazobactam Susceptible Susceptible Trimethoprim with Sulfamethoxazole Susceptible Susceptible Assessment/Plan ASSESSMENT & PLAN Celestina Ansari is a 69 y.o. female w/PMH of HTN, GERD, bipolar and seizure disorder, sick sinus syndrome, COPD on 4L at baseline, recent COVID-19 (+), and complex L-tibia fx s/p ORIF and R-ankle fxs/p ORIF (both on 06/30) c/b poor wound healing s/p multiple abx courses (cephalexin, clinda); now admitted for LLE HW infection and c/f OM, now s/p L AKA #LLE infection Complex L tibia fx s/p ORIF and R ankle fx s/p ORIF c/b poor wound healing s/p multiple abx coursesadmitted for LLE HW infection and c/f osteomyelitis (exam probes to bone). Initial CRP 236, ESR 100, WBC 24K. On admission, CT tib/fib showed periprosthetic fracture of L prox tib/fib, mildly displaced, angulated, nonunited with overlying periosteal reaction concerning for infection. - OR 07/06 for washout. Cultures: E coli, Proteus (suscpetibility as above, scott susceptible) - OR 07/08 with ortho for L AKA. Cultures from that time are NGTD. Surg path as of 07/11 indicates positive evidence of infection at resection margins. - Abx: has been on Vanc and Cefe empirically. ID has been following. (discontinue vanc; continue cefe. Can transition to augmentin tomorrow if NGTD). Plan: - Discontinue vancomycin today per ID note - Touch base with ID tomorrow regarding final antibiotic plan - f/u culture data through 07/12 - Pain control; Oxycodone 10mg q4h PRN, Morphine 4mg IV q4h PRN, Dilaudid 1mg IV q3h PRN - will stop dilaudid as patient not using - PM&R consulted - NWB left lower extremity. - Highway Patrol Pilot placed stump coat maker / ampushield. Awaiting delivery of limb protector. - not interested in prosthesis at this time - PT/OT consults. - Plan for patient to return to her prior SNF when medically stable with ongoing PT/OT. - Ortho has signed off; has follow up 07/30 #COPD with chronic hypoxemic respiratory failure Patient is on 2-4L at baseline at her facility. She has remained on this during her admission - continue o2 supplementation - home flonase - albuterol PRN #COVID-19, resolved Diagnosed in 05/2020, was on quarantine period during admission to hospital. Course has been uncomplicated and she has not had any increase in her home O2 requirement #hyponatremia Baseline seems to be around this (mid 120s to low 130s.) 126 on admission and hvoering around here.No AMS. TSH stable, cortisol 17 #HTN Continue home amlodipine 10mg, losartan 50mg, metoprolol tartrate 25mg q6h, aldactone 25mg, holdinghome lasix (?) this admission. - Start 40mg Lasix once daily (also should help w hyperK), monitor Cr and lytes #HLD Continue home statin 10mg #GERD Continue home protonix 40mg daily #Chronic pain - continue SPRAY APPLICATOR gabapentin 400mg q8h, baclofen #Anxiety Continue home ativan 0.5mg q6h PRN, buspar Code Status: Full Code Diet: Adult Diet Regular DVT Prophylaxis: Lovenox Access: PIV Dispo: return to previous SNF when appropriate Arianna Huynh MD, PGY1 Cosigned by Christopher Jay MD at 07/12/2020 3:52 PM BODY COVERER COVERER COVERER COVERER COVERER Associated attestation - Christopher Jay MD - 07/12/2020 3:52 PM BODY COVERER I have seen and examined the patient on 07/12/20. I agree with the findings and plan of care as documented in the resident's/fellow's note.. * Rosy Michel - 07/11/2020 3:20 PM CST Spiritual Care Note Chaplain Rosy Michel [phone] 07/11/20 1206 Time Spent Start Time 1206 Stop Time 1220 Time Calculation (min) 14 min Patient Spiritual Assessment Spirituality Assessed Focus of Care Clinical Encounter Type Visited With Patient Response Type Routine visit Routine Visit Introduction Reason for visit Support (Process recent amputation) Referral From Nurse Referral To [facility] Outcomes and Interventions Outcomes Demonstrating care and respect;Aligning care with Patient's values COVERER * Terra Winter PA - 07/11/2020 12:45 PM CST Infectious Disease Bone & Joint Team Progress Note Bone and Joint Pager [phone] (attending pager)JOSE CRUZ desk: [phone]; pager: [phone] Subjective Chief complaint of osteomyelitis, TKA PJI s/p AKA Interval History: No acute events since last seen. Her bone cx obtained 07/08 remain NGTD. We discussed with micro and ortho- no growth and per ortho adequate debridement to a level that appeared to be proximal to the infection. Wbc elevated, but pt asymptomatic. ROS: Pt denies f/ch/ns/n/v/d/rash. Tolerating abx well. Objective Anti-infectives (From admission, onward) Start Dose/Rate Route Frequency Ordered Stop 07/09/20 1800 vancomycin 1,750 mg/517.5 mL sodium chloride 0.9% (premix) 1,750 mg 1,750 mg over 120 Minutes intravenous Every 24 hours 07/09/20 0723 07/06/20 1600 cefepime (MAXIPIME) 1,000 mg/10 mL in sterile water (premix) 1,000 mg 1,000 mg 20 mL/hr over 30 Minutes intravenous Every 8 hours 07/06/20 1509 Vitals: 24hr Min/Max: Temp Min: 36.5 ??C (97.7 ??F) Max: 36.9 ??C (98.4 ??F) Pulse Min: 72 Max: 110 BP Min: 132/56 Max: 171/75 Resp Min: 18 Max: 20 SpO2 Min: 97 % Max: 100 % Most Recent : Vitals: 07/11/20 1209 BP: Pulse: 72 Resp: Temp: SpO2: I/O last 2 completed shifts: In: 470 [P.O.:460; I.V.:10] Out: 3000 [Urine:3000] I/O this shift: In: 320 [P.O.:300; I.V.:10; IV Piggyback:10] Out: 600 [Urine:600] Physical Exam: Physical Exam GEN: Alert, cooperative, in no acute distress HEAD: Normocephalic, no obvious abnormality EYES: conjuntive/sclera grossly clear CV: Normal rate, regular rhythm, no murmur heard PULM: Breath sounds normal bilaterally, respirations unlabored ABD: Soft, normal bowel sounds, no distention or tenderness EXT: AKA stump is covered by dressngs NEURO: Alert and oriented x3. SKIN: No rash noted on exposed skin PSYCH: normal mood and affect. IV access: PIV with no erythema or tenderness Lab/Micro: Recent Labs Lab Units 07/10/20210307/09/20210207/08/201756 WBC K/cumm 22.8* 15.6* 25.6* HEMOGLOBIN g/dL 10.4* 8.5* 10.9* HEMATOCRIT % 32.3* 26.8* 34.0* PLATELETS K/cumm 329 361 451* Recent Labs Lab Units 07/10/20210307/09/20210207/09/20210107/08/20175607/08/20 175 SODIUM mmol/L 128* 127* -- -- 128* POTASSIUM PLASMA mmol/L 5.1* 5.0* -- -- 4.8 CHLORIDE mmol/L 92* 93* -- -- 91* CO2 mmol/L 28 28 -- -- 26 BUN SERUM mg/dL 7* 8 -- -- 14 CREATININE mg/dL 0.56* 0.60 -- -- 0.70 GLUCOSE mg/dL 130 139 -- -- 187 POC GLUCOSE MONITOR mg/dL -- -- 148 < > -- CALCIUM mg/dL 8.8 8.6 -- -- 9.1 < > = values in this interval not displayed. Recent Labs Lab Units 07/10/20 2104 07/09/20 2103 07/08/20 1757 07/05/20 1813 07/05/20 1813 ALK PHOS Units/L 135* 149* 195* < > 199* BILIRUBIN TOTAL mg/dL 0.2 0.3 0.2 < > 0.3 BILIRUBIN DIRECT mg/dL -- -- -- -- <0.2 TOTAL PROTEIN g/dL 7.1 6.8 7.7 < > 7.4 ALT Units/L 12 14 26 < > 26 AST Units/L 28 29 33 < > 34 < > = values in this interval not displayed. Micro: Lab Results Component Value Date MICROBIOLOGY Preliminary Report: No growth to date. 07/08/2020 MICROBIOLOGY Preliminary Report: No growth to date. 07/08/2020 Drug Monitoring: Lab Results Component [facility] 07/08/2020 Assessment/Plan COVID-19 Assessment & Plan - recommend getting records from [facility] to establish exact date of first (+) COVID test. - pt likely has completed days of isolation. Open displaced comminuted fracture of shaft of left tibia, type IIIA, IIIB, or IIIC Assessment & Plan 69 y.o. female w/PMH of porphyria (sulfa drugs contraindicated), HTN, GERD, bipolar and seizure disorder, sick sinus syndrome, COPD on 4L at baseline, recent COVID-19 (+), and complex L-tibia fx s/p ORIF [...] be proximal to the infection. Recommendations - dc vanc, continue cefepime for now. We will check the cx again tomorrow, if still NGTD will recommend augmentin 875mg po bid x 14 days. - continue daily cbc to trend leukocytosis, she is asymptomatic - Thank-you for the opportunity to participate in the care of this patient. Infectious Diseases will continue to follow with you. Please contact the ID B&J Team PA at [phone] (desk) or [phone] (work cell) M-F, 7-3; or the Attending at [phone] (pager) with any questions or concerns. After hours, the ID fellow hydrogen plant operations manager can be reached at [phone]. The patient was reviewed and examined with Dr. Veronica today, on 07/11/2020. Cosigned by Og Cintorn MD at 07/11/2020 1:04 PM BODY COVERER COVERER COVERER COVERER Associated attestation - Og Cintron MD - 07/11/2020 1:04 PM BODY COVERER I have seen and examined the patient on 07/11/20 in conjunction with the non- physician provider. History: Patient seen at bedside. Tolerating current antibiotics. Denies any new issues. Doing welloverall. No fevers, chills, rash, nausea/vomiting or diarrhea. Physical Exam: Chest clear to ausculation bilaterally. CV - RRR no murmur/gallops/rubs. Abd - soft,non-tender, +bowel sounds. L-stump in sleeve. Lab/Radiology/Diagnostics Review: OR bone cx (07/08 @1300): NGTD Assessment/Plan: TKA PJI s/p AKA with good surgical margins per discussion with Dr. Shoemaker and bone culture from the margin that remains NGTD. Surg-path was not from the margin, hence, not nutrition representative. If bone culture remain NG tomorrow, can discontinue cefe/vanc and switch to augmentin PO * Obed Martinez MD - 07/11/2020 6:55 AM CST Daily Progress Note Division of Hospital Medicine Name: Celestina Ansari Age: 69 y.o. female : 1950 Today: July 11, 2020 Admit: 07/05/2020 Bed: [id number] Subjective Chief Complaint: Leg infection, COVID-19 Interval History: Patient tested POSITIVE for COVID-19 on 06/21/20 at her residential. Afebrile. Breathing at baseline. On 3L of O2 this morning (baseline 4L). Status post OR with orthopedics for L AKA. Pain is well-controlled with morning. No events overnight. Awaiting culture data from the OR and long-term antibiotic plan. Objective Medications: Scheduled: ??? [Held by Provider] acetaminophen, 1,000 mg, oral, Q8H ??? amLODIPine, 10 mg, oral, Daily ??? atorvastatin, 10 mg, oral, Nightly ??? baclofen, 2.5 mg, oral, TID with meals ??? bisacodyl EC, 10 mg, oral, Nightly ??? busPIRone, 5 mg, oral, Daily ??? cefepime, 1,000 mg, intravenous, Q8H ??? docusate sodium, 200 mg, oral, Daily ??? enoxaparin, 40 mg, subcutaneous, Daily-2100 ??? fluticasone propionate, 2 spray, each nostril, Daily ??? [Held by Provider] furosemide, 40 mg, oral, BID ??? gabapentin, 400 mg, oral, Q8H ??? losartan, 50 mg, oral, Daily ??? metoprolol tartrate, 25 mg, oral, Q6H KELIN ??? pantoprazole DR, 40 mg, oral, Daily ??? ramelteon, 8 mg, oral, Nightly ??? sodium chloride 0.9%, 0.5-20 mL, intra-catheter, Q8H KELIN ??? sodium chloride 0.9%, 5-10 mL, intra-catheter, Q8H KELIN ??? spironolactone, 25 mg, oral, Daily ??? vancomycin, 1,750 mg, intravenous, Q24H Infusions: ??? Lactated Ringer's, 30 mL/hr, Last Rate: Stopped (07/08/20 1605) PRN: albuterol HFA ??? HYDROmorphone ??? LORazepam ??? morphine ??? ondansetron ODT ??? oxyCODONE ??? sodium chloride 0.9% ??? sodium chloride 0.9% Vitals: Most Recent : Vitals: 07/11/20 0620 BP: 142/66 Pulse: 89 Resp: 18 Temp: SpO2: 99% 24hr Min/Max: Temp Min: 36.5 ??C (97.7 ??F) Max: 37 ??C (98.6 ??F) Pulse Min: 89 Max: 110 BP Min: 142/66 Max: 171/75 Resp Min: 18 Max: 20 SpO2 Min: 97 % Max: 100 % I&Os: I/O last 2 completed shifts: In: 490 [P.O.:480; I.V.:10] Out: 3550 [Urine:3550] I/O this shift: In: 70 [P.O.:60; I.V.:10] Out: 1000 [Urine:1000] Physical exam: Constitutional: Vitals reviewed. In no acute distress. Head: Normocephalic. Atraumatic. Eyes: Sclera anicteric. Extraocular eye movements intact. ENT: Moist oral mucous membranes. Neck: Supple. Trachea midline. Cardiovascular: Normal rate. Regular rhythm. Respiratory: Non-labored respirations. Clear to auscultation bilaterally. Gastrointestinal: Soft. Nontender. Nondistended. Normoactive bowel sounds. Neurologic: Alert and oriented to person, place, time, and situation. Grossly non-focal exam. Musculoskeletal/Extremities: Warm and well-perfused. No lower extremity edema. L AKA, stump is bandaged and wrapped. Psychiatric: Pleasant and conversant. Mood congruent with affect. Judgement and insight intact. Skin: L AKA, stump is bandaged and wrapped. Lab Results: Recent Results (from the past 36 hour(s)) POCT glucose Collection Time: 07/09/20 9:02 PM Result Value Ref Range Glucose, POC 148 70 - 199 mg/dL Comprehensive metabolic panel Collection Time: 07/09/20 9:03 PM Result Value Ref Range Sodium 127 (L) 135 - 145 mmol/L Potassium, pl 5.0 (H) 3.3 - 4.9 mmol/L Chloride 93 (L) 97 - 110 mmol/L CO2 28 22 - 32 mmol/L Anion gap 6 2 - 15 mmol/L BUN 8 8 - 25 mg/dL Creatinine 0.60 0.60 - 1.10 mg/dL Glucose 139 70 - 199 mg/dL Calcium 8.6 8.5 - 10.3 mg/dL Bilirubin, total 0.3 0.1 - 1.2 mg/dL Protein, pl 6.8 6.5 - 8.5 g/dL Albumin 2.9 (L) 3.5 - 5.0 g/dL Alk phos 149 (H) 40 - 130 Units/L ALT 14 7 - 45 Units/L AST 29 10 - 45 Units/L CBC with auto differential Collection Time: 07/09/20 9:03 PM Result Value Ref Range WBC 15.6 (H) 3.8 - 9.9 K/cumm Hgb 8.5 (L) 11.9 - 15.5 g/dL Hct 26.8 (L) 35.6 - 45.5 % Plt 361 150 - 400 K/cumm MPV 9.4 9.1 - 12.3 fL RBC 2.83 (L) 3.90 - 5.20 M/cumm MCV 94.7 81.3 - 96.4 fL MCH 30.0 27.1 - 33.3 pg MCHC 31.7 (L) 32.3 - 35.7 g/dL RDW CV 11.9 11.1 - 14.9 % RDW SD 41.7 35.7 - 48.1 fL NRBC abs 0.00 0.00 - 0.01 K/cumm Differential, auto Collection Time: 07/09/20 9:03 PM Result Value Ref Range Neutrophil abs 11.1 (H) 1.7 - 6.5 K/cumm Imm gran abs 0.7 (H) 0.0 - 0.1 K/cumm Lymphocyte abs 2.0 0.8 - 3.3 K/cumm Monocyte abs 1.7 (H) 0.2 - 0.8 K/cumm Eosinophil abs 0.0 0.0 - 0.5 K/cumm Basophil abs 0.1 0.0 - 0.1 K/cumm Neutrophil pct 70.9 % Imm gran pct 4.5 % Lymphocyte pct 13.0 % Monocyte pct 11.0 % Eosinophil pct 0.3 % Basophil pct 0.3 % Comprehensive metabolic panel Collection Time: 07/10/20 9:04 PM Result Value Ref Range Sodium 128 (L) 135 - 145 mmol/L Potassium, pl 5.1 (H) 3.3 - 4.9 mmol/L Chloride 92 (L) 97 - 110 mmol/L CO2 28 22 - 32 mmol/L Anion gap 8 2 - 15 mmol/L BUN 7 (L) 8 - 25 mg/dL Creatinine 0.56 (L) 0.60 - 1.10 mg/dL Glucose 130 70 - 199 mg/dL Calcium 8.8 8.5 - 10.3 mg/dL Bilirubin, total 0.2 0.1 - 1.2 mg/dL Protein, pl 7.1 6.5 - 8.5 g/dL Albumin 2.9 (L) 3.5 - 5.0 g/dL Alk phos 135 (H) 40 - 130 Units/L ALT 12 7 - 45 Units/L AST 28 10 - 45 Units/L CBC with auto differential Collection Time: 07/10/20 9:04 PM Result Value Ref Range WBC 22.8 (H) 3.8 - 9.9 K/cumm Hgb 10.4 (L) 11.9 - 15.5 g/dL Hct 32.3 (L) 35.6 - 45.5 % Plt 329 150 - 400 K/cumm MPV 9.7 9.1 - 12.3 fL RBC 3.40 (L) 3.90 - 5.20 M/cumm MCV 95.0 81.3 - 96.4 fL MCH 30.6 27.1 - 33.3 pg MCHC 32.2 (L) 32.3 - 35.7 g/dL RDW CV 11.9 11.1 - 14.9 % RDW SD 41.5 35.7 - 48.1 fL NRBC abs 0.00 0.00 - 0.01 K/cumm Differential, auto Collection Time: 07/10/20 9:04 PM Result Value Ref Range Neutrophil abs 12.6 (H) 1.7 - 6.5 K/cumm Imm gran abs 1.0 (H) 0.0 - 0.1 K/cumm Lymphocyte abs 4.3 (H) 0.8 - 3.3 K/cumm Monocyte abs 4.7 (H) 0.2 - 0.8 K/cumm Eosinophil abs 0.1 0.0 - 0.5 K/cumm Basophil abs 0.1 0.0 - 0.1 K/cumm Neutrophil pct 55.4 % Imm gran pct 4.2 % Lymphocyte pct 18.9 % Monocyte pct 20.6 % Eosinophil pct 0.4 % Basophil pct 0.5 % I have independently reviewed and interpreted the above laboratory results. 07/06/20 Micro: --Operative tissue culture left leg x 3 growing E coli and Proteus mirabilis (pansensitive). 07/08/20 Micro: --Operate left leg bone (residual femur) culture with moderate PMNs but no organisms. Culture results pending. --Surgical pathology pending. Imaging Results: FL Fluoroscopy < 1 Hour (Statistical Only) The images from this study are not interpreted by Radiology. Please refer to the physician's procedure / OR operative note. XR Tibia Fibula Left 2 Views Narrative: EXAMINATION: Left tibia-fibula 2 views HISTORY: Left proximal tibia and fibula fractures FINDINGS: 3 portable radiographs of the left tibia and fibula are compared to prior radiographs from 05/07/[address] examination from 07/06/2020. There has been interval explantation of the proximal tibia hardware with unchanged mild displaced periprosthetic fractures of the left proximal tibia and fractures of the left proximal fibular shaft. The total knee arthroplasty appears unchanged. Overlying splint obscures fine bone detail. The internally fixated medial and lateral malleolar ankle fractures are again noted. Impression: 1. Interval hardware explantation with unchanged, ununited proximal tibia periprosthetic and proximal fibular shaft fractures Electronically signed by: Jordan Andrews MD, PHD I have independently reviewed and interpreted the above imaging. Additional Diagnostic/Procedure Results: I have independently reviewed records in [facility]. Assessment/Plan * Left lower extremity infection Assessment & Plan History of open periprosthetic tibia/fibula fracture s/p [...] left lower extremity. - PM&R consulted. - Highway Patrol Pilot placed stump coat maker / ampushield. Awaiting delivery of limb protector. - Patient not interested in prosthesis at this time. - PT/OT consults. - Plan for patient to return to her prior SNF when medically stable with ongoing PT/OT. - ID and Ortho following. COVID-19 Assessment & Plan - Patient tested positive for COVID-19 on 06/21/20 at her residential ([facility] in [place], [place]). - She reports her only symptom [...] test with resolution of symptoms, she is consideredCOVID-19 recovered. COVID-19 Isolation precautions will be removed as soon as we can obtain hard copy records of her positive test from her SNF. Hyponatremia Assessment & Plan - Pt with history of hypoNa (per report, baseline mid 120- low 130s). - Na 126 on admission. No AMS. - TSH wnl. Cortisol 17. - Na stable. Chronic respiratory failure (CMS/HCC) Assessment & Plan - Per pt 2/2 COPD. No sings of acute exacerbation. - Continue home flonase - Continue home albuterol prn - On home is on 4L O2 at baseline Open displaced comminuted fracture of shaft of left tibia, type IIIA, IIIB, or IIIC Assessment & Plan - See above. Moderate essential hypertension Assessment & Plan - Follows with cardiology. - Continue home amlodipine, metoprolol, lasix, spironolactone. - Switched olmesartan to losartan as not on formulary. Code Status: Full Code Diet: Adult Diet Regular DVT Prophylaxis: Lovenox Access: [facility] Obed Martinez MD 07/11/2020 6:59 AM For patient related questions from 7 AM until 7 PM, please contact the primary Hospitalist team. From 7 PM until 7 AM, please call the Hospitalist cross cover phone. COVERER * Sierra Benavidez, PT - 07/10/2020 5:01 PM CST Physical Therapy Physical Therapy Progress Note NOTE: This is a summary note of the garcia components of the treatment session. For full details, review chart for all flowsheets documented on by this physical therapy clinician on this date. Vital signs documented in vital signs flowsheet. Care plan progress documented in Care Plan Activity. For questions, please review the treatment team and contact the PT or SPRAY APPLICATOR currently assigned to this patient. If a physical therapy clinician is not assigned to this patient, please call [phone]. 07/10/20 1701 PT Last Visit Session Type Treatment PT Received On 07/10/20 Safe Environment Arm Band Checked;Notified RN;Session Completed Bedside;Patient found in Supine Subjective Agreeable to Therapy Subjective Comment I will try to do the exercises , I'm not doing a prosthesis Additional Pertinent History End of treatment: pt supine in bed with HOB elevated for dinner, all needs in reach Family/Caregiver Present No Precautions Precautions Fall risk Weight Bearing Restrictions Yes LLE Weight Bearing NWB Pain Assessment Pain Assessment 0-10 Pain Score 8 Pain Type Surgical pain Chronic Pain Precipitating Factors At Rest Pain Location Incision Pain Orientation Left Pain Interventions Declines (pain meds given prior to PT ) Cognition Orientation Oriented X4 (person, place, time, situation) Balance Balance (pt declined all mobility due to dinner arriving ) Exercises Exercise per protocol (Issued, reviewed and pt performed AKA exercise protocol) Supine Supine-Exercises Bilateral;Lower extremity Reps/Sets 10 Supine-Motion AROM Supine-Exercise Comments Pt performed LLE hip flexion, hip abduction, hip extension isometric, R unilateral bridging, R ankle pumps Other Activities Other Activities Comments Education on contracture prevention, positioning and importance of exercise program Equipment Use Equipment Use Comments gait belt not used due to no OOB mobility performed Bed Mobility Bed Mobility No (pt declined ) Transfers Transfer No (pt declined ) Ambulation Ambulation No Stairs Stairs No Basic Mobility - 6 Click How much difficulty does the patient have: Turning over in bed 2 How much difficulty does the patient currently have: Sitting down and standing up from a chair witharms? 2 How much difficulty does the patient have: Moving from lying on back to sitting on the side of the bed? 2 How much difficulty does the patient have: Moving to and from a bed to a chair including wheelchair? 2 How much help does the patient currently need: Walk in hospital room? 1 How much help from another person does the patient currently need: Climbing 3-5 steps with a railing? 1 Total 6 Click Score (range 6-24) 10 Score Interpretation 28.13 Assessment Prognosis Fair Barriers to Discharge Current Mobility Status Plan Plan Continue with current plan;If this is the last note, consider this the discharge summary Recommendation/Plan PT Recommendation/Plan Group Home Facility PT Frequency 3-5x/wk PT - Next Appointment 07/12/20 Multi-Disciplinary Problems (from Physical Therapy) Active Problems Problem: Transfers Start Date: 07/09/20 Goal Start Date End Date STG - Transfer from bed to chair 07/09/20 -- Goal Details: Mod A x2 Goal Start Date End Date STG - Patient to transfer to and from sit to supine 07/09/20 -- Goal Details: Min A with HOB elevated 30 degrees Goal Start Date End Date STG - Patient will transfer sit to and from stand 07/09/20 -- Goal Details: Mod A x2 from all surfaces Problem: PT Misc Start Date: 07/09/20 Goal Start Date End Date [facility] -- Goal Details: Pt will perform all functional mobility min A with LRD Goal Start Date End Date PT [place] [facility] [place] 07/09/20 -- Goal Details: Pt will verbalize and demonstrate understanding of AKA HEP to prevent contractures and weakness of L stump. COVERER * Obed Martinez MD - 07/10/2020 7:12 AM CST Daily Progress Note Division of Hospital Medicine Name: Celestina Ansari Age: 69 y.o. female : 1950 Today: July 10, 2020 Admit: 07/05/2020 Bed: [id number] Subjective Chief Complaint: Leg infection, COVID-19 Interval History: Patient tested POSITIVE for COVID-19 on 06/21/20 at her residential. Afebrile. Breathing at baseline. On 3L of O2 this morning (baseline 4L). Status post OR with orthopedics for L AKA. Pain is well-controlled with morning. Objective Medications: Scheduled: ??? [Held by Provider] acetaminophen, 1,000 mg, oral, Q8H ??? amLODIPine, 10 mg, oral, Daily ??? atorvastatin, 10 mg, oral, Nightly ??? baclofen, 2.5 mg, oral, TID with meals ??? bisacodyl EC, 10 mg, oral, Nightly ??? busPIRone, 5 mg, oral, Daily ??? cefepime, 1,000 mg, intravenous, Q8H ??? [START ON 07/11/2020] docusate sodium, 200 mg, oral, Daily ??? [Held by Provider] enoxaparin, 40 mg, subcutaneous, Daily-2100 ??? fluticasone propionate, 2 spray, each nostril, Daily ??? [Held by Provider] furosemide, 40 mg, oral, BID ??? gabapentin, 400 mg, oral, Q8H ??? losartan, 50 mg, oral, Daily ??? metoprolol tartrate, 25 mg, oral, Q6H KELIN ??? pantoprazole DR, 40 mg, oral, Daily ??? ramelteon, 8 mg, oral, Nightly ??? sodium chloride 0.9%, 0.5-20 mL, intra-catheter, Q8H KELIN ??? sodium chloride 0.9%, 5-10 mL, intra-catheter, Q8H KELIN ??? [Held by Provider] spironolactone, 25 mg, oral, Daily ??? vancomycin, 1,750 mg, intravenous, Q24H Infusions: ??? Lactated Ringer's, 30 mL/hr, Last Rate: Stopped (07/08/20 1605) PRN: albuterol HFA ??? HYDROmorphone ??? morphine ??? ondansetron ODT ??? oxyCODONE ??? sodium chloride 0.9% ??? sodium chloride 0.9% Vitals: Most Recent : Vitals: 07/10/20 0807 BP: 147/71 Pulse: 91 Resp: 18 Temp: 37 ??C (98.6 ??F) SpO2: 100% 24hr Min/Max: Temp Min: 36.8 ??C (98.2 ??F) Max: 37.7 ??C (99.9 ??F) Pulse Min: 84 Max: 106 BP Min: 100/79 Max: 169/70 Resp Min: 18 Max: 20 SpO2 Min: 100 % Max: 100 % I&Os: I/O last 2 completed shifts: In: 490 [P.O.:480; I.V.:10] Out: 1550 [Urine:1550] I/O this shift: In: 200 [P.O.:200] Out: - Physical exam: Constitutional: Vitals reviewed. In no acute distress. Head: Normocephalic. Atraumatic. Eyes: Sclera anicteric. Extraocular eye movements intact. ENT: Moist oral mucous membranes. Neck: Supple. Trachea midline. Cardiovascular: Normal rate. Regular rhythm. Respiratory: Non-labored respirations. Clear to auscultation bilaterally. Gastrointestinal: Soft. Nontender. Nondistended. Normoactive bowel sounds. Neurologic: Alert and oriented to person, place, time, and situation. Grossly non-focal exam. Musculoskeletal/Extremities: Warm and well-perfused. No lower extremity edema. L AKA, stump is bandaged and wrapped. Psychiatric: Pleasant and conversant. Mood congruent with affect. Judgement and insight intact. Skin: L AGNES stump is bandaged and wrapped. Lab Results: Recent Results (from the past 36 hour(s)) POCT glucose Collection Time: 07/09/20 4:34 PM Result Value Ref Range Glucose, POC 164 70 - 199 mg/dL POCT glucose Collection Time: 07/09/20 9:02 PM Result Value Ref Range Glucose, POC 148 70 - 199 mg/dL Comprehensive metabolic panel Collection Time: 07/09/20 9:03 PM Result Value Ref Range Sodium 127 (L) 135 - 145 mmol/L Potassium, pl 5.0 (H) 3.3 - 4.9 mmol/L Chloride 93 (L) 97 - 110 mmol/L CO2 28 22 - 32 mmol/L Anion gap 6 2 - 15 mmol/L BUN 8 8 - 25 mg/dL Creatinine 0.60 0.60 - 1.10 mg/dL Glucose 139 70 - 199 mg/dL Calcium 8.6 8.5 - 10.3 mg/dL Bilirubin, total 0.3 0.1 - 1.2 mg/dL Protein, pl 6.8 6.5 - 8.5 g/dL Albumin 2.9 (L) 3.5 - 5.0 g/dL Alk phos 149 (H) 40 - 130 Units/L ALT 14 7 - 45 Units/L AST 29 10 - 45 Units/L CBC with auto differential Collection Time: 07/09/20 9:03 PM Result Value Ref Range WBC 15.6 (H) 3.8 - 9.9 K/cumm Hgb 8.5 (L) 11.9 - 15.5 g/dL Hct 26.8 (L) 35.6 - 45.5 % Plt 361 150 - 400 K/cumm MPV 9.4 9.1 - 12.3 fL RBC 2.83 (L) 3.90 - 5.20 M/cumm MCV 94.7 81.3 - 96.4 fL MCH 30.0 27.1 - 33.3 pg MCHC 31.7 (L) 32.3 - 35.7 g/dL RDW CV 11.9 11.1 - 14.9 % RDW SD 41.7 35.7 - 48.1 fL NRBC abs 0.00 0.00 - 0.01 K/cumm Differential, auto Collection Time: 07/09/20 9:03 PM Result Value Ref Range Neutrophil abs 11.1 (H) 1.7 - 6.5 K/cumm Imm gran abs 0.7 (H) 0.0 - 0.1 K/cumm Lymphocyte abs 2.0 0.8 - 3.3 K/cumm Monocyte abs 1.7 (H) 0.2 - 0.8 K/cumm Eosinophil abs 0.0 0.0 - 0.5 K/cumm Basophil abs 0.1 0.0 - 0.1 K/cumm Neutrophil pct 70.9 % Imm gran pct 4.5 % Lymphocyte pct 13.0 % Monocyte pct 11.0 % Eosinophil pct 0.3 % Basophil pct 0.3 % I have independently reviewed and interpreted the above laboratory results. 07/06/20 Micro: --Operative tissue culture left leg x 3 growing E coli and Proteus mirabilis. 07/08/20 Micro: --Operate left leg bone (residual femur) culture with moderate PMNs but no organisms. Culture results pending. --Surgical pathology pending. Imaging Results: FL Fluoroscopy < 1 Hour (Statistical Only) The images from this study are not interpreted by Radiology. Please refer to the physician's procedure / OR operative note. XR Tibia Fibula Left 2 Views Narrative: EXAMINATION: Left tibia-fibula 2 views HISTORY: Left proximal tibia and fibula fractures FINDINGS: 3 portable radiographs of the left tibia and fibula are compared to prior radiographs from 05/07/[address] examination from 07/06/2020. There has been interval explantation of the proximal tibia hardware with unchanged mild displaced periprosthetic fractures of the left proximal tibia and fractures of the left proximal fibular shaft. The total knee arthroplasty appears unchanged. Overlying splint obscures fine bone detail. The internally fixated medial and lateral malleolar ankle fractures are again noted. Impression: 1. Interval hardware explantation with unchanged, ununited proximal tibia periprosthetic and proximal fibular shaft fractures Electronically signed by: Jodran Andrews MD, PHD I have independently reviewed and interpreted the above imaging. Additional Diagnostic/Procedure Results: I have independently reviewed records in [facility]. Assessment/Plan * Left lower extremity infection Assessment & Plan History of open periprosthetic tibia/fibula fracture s/p [...] surgical pathology results. - Pain management. - PT/OT consults. - NWB left lower extremity. - PM&R consult. - Highway Patrol Pilot to place stump coat maker / ampushield on POD2-3. - ID and Ortho following. COVID-19 Assessment & Plan - Patient tested positive for COVID-19 on 06/21/20 at her residential ([facility] in [place], [place]). - She reports her only symptom [...] therapies to date. - As patient is 20 days from positive test with resolution of symptoms, she will likely be considered COVID-19 recovered and removed from COVID-19 isolation precautions as soon as we can obtain hard copy records of her positive test. Hyponatremia Assessment & Plan - Pt with history of hypoNa (per report, baseline mid 120- low 130s). - Na 126 on admission. No AMS. - TSH wnl. Cortisol 17. - Diuretics were held and Na improved to 132. Restart when able. Chronic respiratory failure (CMS/HCC) Assessment & Plan - Per pt 2/2 COPD. No sings of acute exacerbation. - Continue home flonase - Continue home albuterol prn - On home is on 4L O2 at baseline Open displaced comminuted fracture of shaft of left tibia, type IIIA, IIIB, or IIIC Assessment & Plan - See above. Moderate essential hypertension Assessment & Plan - Follows with cardiology. - Continue home amlodipine, metoprolol, lasix, spironolactone. - Switched olmesartan to losartan as not on formulary. Code Status: Full Code Diet: Adult Diet Regular DVT Prophylaxis: Lovenox Access: [facility] Obed Martinez MD 07/10/2020 10:58 AM For patient related questions from 7 AM until 7 PM, please contact the primary Hospitalist team. From 7 PM until 7 AM, please call the Hospitalist cross cover phone. COVERER * Ernesto Devine MD PhD - 07/10/2020 6:59 AM CST Orthopaedic Surgery Daily Progress HPI: Celestina Ansari is a69y F p/w L T3 open periprosthetic tib/fib shaft fx periprosthetic infection s/p 2 weeks worsening erythema, 2d purulent drainage. Repeat I&D, revision ORIF w/ [facility] (06/30/19),last seen 05/13. Completed PO Clinda 7d w/o improvement, +f/c. Not on anticoag. Exam: AFVSS 2x2cm anterior, 5mm ant- medial proximal wound surrounding erythema, expressible purulent dc, probes to bone. NVI at baseline. PMH: seizures, bipolar, HTN, sick sinus syndrome, COPD (4L baseline). SH: WC bound in SNF since surg. Subjective Interval History: S/p L aka - doing well post op. Pain controlled this AM. Highway Patrol Pilot planning to see today v tomorrow Objective Vitals: 24hr Min/Max: Temp Min: 36.8 ??C (98.2 ??F) Max: 37.7 ??C (99.9 ??F) Pulse Min: 84 Max: 106 BP Min: 98/77 Max: 176/79 Resp Min: 18 Max: 20 SpO2 Min: 100 % Max: 100 % I/O last 2 completed shifts: In: 400 [P.O.:400] Out: - I/O this shift: In: 90 [P.O.:80; I.V.:10] Out: 1550 [Urine:1550] Physical Exam: Awake, alert, oriented No acute distress Breathing regular and unlabored LLE: Dressings are clean, dry, and intact Sensory intact to stump Laboratory review: OR cultures w PMNs but no orgs Assessment 69F with L T3 open periprosthetic tib/fib shaft fx with periprosthetic infection now status post L AKA. Plan ??? PT postop ??? Nonweightbearing left lower extremity ??? Pain control (gabapentin/toradol/ etc: should be multimodal) ??? Diet per primary team ??? Q4 NV checks ??? Antibiotics per Infectious Disease ??? Follow OR cultures ??? DVT ppx: Per primary team, we prefer Lovenox ? ? Recommend PM&R c/s for amputation evaluation ??? Ani is aware of pt and will place stump coat maker/ampusheild on POD2-3. ??? Ortho to follow Ernesto Devine MD PhD Orthopaedic Surgery PGY-2 ? During normal business hours - If you know the resident's name on the appropriate orthopaedic surgery team, please use [email or web address] to page resident directly. ? If you have questions overnight or can't reach the appropriate resident, please call the Orthopaedic Surgery Consult Pager [phone] to have your questions answered or be directed to the correctOrthopaedic Surgery resident. COVERER * Terra Winter PA - 07/09/2020 4:19 PM CST Infectious Disease Bone & Joint Team Progress Note Bone and Joint Pager [phone] (attending pager)JOSE CRUZ desk: [phone]; pager: [phone] Subjective Chief complaint of osteomyelitis/PJI Interval History: No acute events since last seen. Pt went to the OR 07/08 for AKA. New cx obtained of bone NGTD 07/06 LLE tissue cx now + E coli and proteus, susceptibility pending. ROS: Pt denies f/ch/ns/n/v/d/rash. Tolerating abx well. Objective Anti-infectives (From admission, onward) Start Dose/Rate Route Frequency Ordered Stop 07/09/20 1800 vancomycin 1,750 mg/517.5 mL sodium chloride 0.9% (premix) 1,750 mg 1,750 mg over 120 Minutes intravenous Every 24 hours 07/09/20 0723 07/06/20 1600 cefepime (MAXIPIME) 1,000 mg/10 mL in sterile water (premix) 1,000 mg 1,000 mg 20 mL/hr over 30 Minutes intravenous Every 8 hours 07/06/20 1509 Vitals: 24hr Min/Max: Temp Min: 36.5 ??C (97.7 ??F) Max: 36.9 ??C (98.4 ??F) Pulse Min: 72 Max: 110 BP Min: 132/56 Max: 171/75 Resp Min: 18 Max: 20 SpO2 Min: 97 % Max: 100 % Most Recent : Vitals: 07/11/20 1209 BP: Pulse: 72 Resp: Temp: SpO2: I/O last 2 completed shifts: In: 470 [P.O.:460; I.V.:10] Out: 3000 [Urine:3000] I/O this shift: In: 320 [P.O.:300; I.V.:10; IV Piggyback:10] Out: 600 [Urine:600] Physical Exam: Physical Exam GEN: Alert, cooperative, in no acute distress HEAD: Normocephalic, no obvious abnormality EYES: conjuntive/sclera grossly clear CV: Normal rate, regular rhythm, no murmur heard PULM: Breath sounds normal bilaterally, respirations unlabored ABD: Soft, normal bowel sounds, no distention or tenderness EXT: LLE BKA stump is covered by dressing cdi. NEURO: Alert and oriented x3. SKIN: No rash noted on exposed skin PSYCH: normal mood and affect. IV access: PIVs with no erythema or tenderness Lab/Micro: Recent Labs Lab Units 07/10/20210307/09/20210207/08/201756 WBC K/cumm 22.8* 15.6* 25.6* HEMOGLOBIN g/dL 10.4* 8.5* 10.9* HEMATOCRIT % 32.3* 26.8* 34.0* PLATELETS K/cumm 329 361 451* Recent Labs Lab Units 07/10/20210307/09/20210207/[id number] SODIUM mmol/L 128* 127* -- -- 128* POTASSIUM PLASMA mmol/L 5.1* 5.0* -- -- 4.8 CHLORIDE mmol/L 92* 93* -- -- 91* CO2 mmol/L 28 28 -- -- 26 BUN SERUM mg/dL 7* 8 -- -- 14 CREATININE mg/dL 0.56* 0.60 -- -- 0.70 GLUCOSE mg/dL 130 139 -- -- 187 POC GLUCOSE MONITOR mg/dL -- -- 148 < > -- CALCIUM mg/dL 8.8 8.6 -- -- 9.1 < > = values in this interval not displayed. Recent Labs Lab Units 07/10/20210307/09/20210207/08/[id number]/05/[id number]/201812 ALK PHOS Units/L 135* 149* 195* < > 199* BILIRUBIN TOTAL mg/dL 0.2 0.3 0.2 < > 0.3 BILIRUBIN DIRECT mg/dL -- -- -- -- <0.2 TOTAL PROTEIN g/dL 7.1 6.8 7.7 < > 7.4 ALT Units/L 12 14 26 < > 26 AST Units/L 28 29 33 < > 34 < > = values in this interval not displayed. Micro: Lab Results Component Value Date MICROBIOLOGY Preliminary Report: No growth to date. 07/08/2020 MICROBIOLOGY Preliminary Report: No growth to date. 07/08/2020 Drug Monitoring: Lab Results Component Value Date VANCOTROUGH 7.9 (L) 07/08/2020 Assessment/Plan COVID-19 Assessment & Plan - recommend getting records from [facility] to establish exact date of first (+) COVID test. - pt likely has completed days of isolation. Open displaced comminuted fracture of shaft of left tibia, type IIIA, IIIB, or IIIC Assessment & Plan 69 y.o. female w/PMH of porphyria (sulfa drugs contraindicated), HTN, GERD, bipolar and seizure disorder, sick sinus syndrome, COPD on 4L at baseline, recent COVID-19 (+), and complex L-tibia fx s/p ORIF [...] to 1750 q 24. Scr is stable. Recommendations - okay to continue vanc and cefe for now - Please check VT prior to next 3rd dose, inc to 1750 q 24 per primary team - daily cbc, bmp for now, cmp weekly - will discuss her margins with ortho to help guide therapy. - Thank-you for the opportunity to participate in the care of this patient. Infectious Diseases will continue to follow with you. Please contact the ID B&J Team PA at [phone] (desk) or [phone] (work cell) M-F, 7-3; or the Attending at [phone] (pager) with any questions or concerns. After hours, the ID fellow hydrogen plant operations manager can be reached at [phone]. D/w primary team over the phone today The patient was reviewed and examined with Dr. Veronica today, on 07/09/2020. Cosigned by Og Cintron MD at 07/11/2020 1:18 PM BODY COVERER COVERER COVERER COVERER COVERER COVERER Associated attestation - Og Cintron MD - 07/11/2020 1:18 PM BODY COVERER I have seen and examined the patient on 07/09/2020 in conjunction with the non- physician provider. History: Patient seen at bedside. Tolerating current antibiotics. Denies any new issues. Doing welloverall. No fevers, chills, rash, nausea/vomiting or diarrhea. Physical Exam: Chest clear to ausculation bilaterally. CV - RRR no murmur/gallops/rubs. Abd - soft,non-tender, +bowel sounds. L-stump with dressing clean, dry, intact Lab/Radiology/Diagnostics Review: OR cx NGTD Assessment/Plan: continue current therapy while awaiting further culture results and discussion about OR findings; tissues sent by Ernesto Garber MD PhD - 07/09/2020 12:40 PM CST Orthopaedic Surgery Daily Progress HPI: Celestina Ansari is [id number] F p/w L T3 open periprosthetic tib/fib shaft fx periprosthetic infection s/p 2 weeks worsening erythema, 2d purulent drainage. Repeat I&D, revision ORIF w/ [facility] (06/30/19),last seen 05/13. Completed PO Clinda 7d w/o improvement, +f/c. Not on anticoag. Exam: AFVSS 2x2cm anterior, 5mm ant- medial proximal wound surrounding erythema, expressible purulent dc, probes to bone. NVI at baseline. PMH: seizures, bipolar, HTN, sick sinus syndrome, COPD (4L baseline). SH: WC bound in SNF since surg. Subjective Interval History: S/p L aka - doing well post op. Pain controlled Objective Vitals: 24hr Min/Max: Temp Min: 36 ??C (96.8 ??F) Max: 37 ??C (98.6 ??F) Pulse Min: 86 Max: 114 BP Min: 98/77 Max: 176/79 Resp Min: 11 Max: 20 SpO2 Min: 94 % Max: 100 % I/O last 2 completed shifts: In: 700 [I.V.:700] Out: 50 [Blood:50] No intake/output data recorded. 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 Plan ??? PT postop ??? Nonweightbearing left lower extremity ??? Pain control ??? Diet per primary team ??? Q4 NV checks ??? Antibiotics per Infectious Disease ??? Follow OR cultures ??? DVT ppx: Per primary team, we prefer Lovenox ? ? Recommend PM&R c/s for amputation evaluation ??? Ani is aware of pt and will place stump coat maker/ampusheild on POD2-3. ??? Ortho to follow Ernesto Devine MD PhD Orthopaedic Surgery PGY-2 ? During normal business hours - If you know the resident's name on the appropriate orthopaedic surgery team, please use [email or web address] to page resident directly. ? If you have questions overnight or can't reach the appropriate resident, please call the Orthopaedic Surgery Consult Pager [phone] to have your questions answered or be directed to the correctOrthopaedic Surgery resident. COVERER * Gilberto Armstrong, PT - 07/09/2020 10:16 AM CST Physical Therapy Physical Therapy Initial Assessment NOTE: This is a summary note for the garcia assessments completed during the evaluation session. For full details, review chart review for all flowsheets documented on by this physical therapist on thisdate. Vital signs documented in vital signs flowsheet. Assessment Assessment Prognosis: Fair Problem List: Gait deviations, Decreased strength, Decreased endurance, Impaired balance, Decreasedmobility, Obesity, Orthopedic restrictions, Pain Problem List Comments: Pt s/p L AKA results in above listed activity deficits and impairments whichprevent full participation in home and community mobility. Barriers to Discharge: Current Mobility Status, Decreased safety awareness Plan Plan Plan : Plan of care initiated, If this is the last note, consider this the discharge summary PT Recommendation and Plan Recommendation/Plan PT Recommendation/Plan: Group Home Facility PT Recommendation/Plan Comments: back to facility PT Frequency: Daily(6-7x/week) Treatment/Interventions: Balance Training, Bed mobility, Endurance training, Equipment eval/education, Functional activity, Functional transfer training, Gait training, Neuromuscular re-education, Parent/caregiver training and education, Range of motion, Stair training, Strengthening, Therapeutic activity, Therapeutic exercise, Transfer training PT - Next Appointment: 07/10/20 PT Evaluation Complete: Yes General Information General Chart Reviewed: Yes Session Type: Evaluation PT Received On: 07/09/20 Safe Environment: Arm Band Checked, Notified RN, Session Completed Bedside, Patient found in Supine Subjective: Other(Reluctant to participate) Subjective Comment: I hurt PT Missed Visit Reason: MD/RN Hold, Procedure/testing/appointment(pt to OR for AKA) Family/Caregiver Present: No Physical Therapy-Patient Goal: None specifically stated Prior Function Prior Function Level of Etta: Independent with ADLs, Independent functional transfers, Independent with wheelchair Lives With: Other (Comment)(SNF) Receives Help From: Other (Comment)(SNF staff) Driving: No Vocational/Occupation: Retired Fall within the last 6 months: No Home Living Home Living Type of Home: Group Home Facility Home Layout: One level Home Access: Level entry Home Mobility Equipment: Wheeled walker, Wheelchair-manual Additional Comments: pt reports typically using w/c for all mobility and is able to perform transfers independently Precautions Precautions Precautions: Fall risk Weight Bearing Restrictions: Yes LLE Weight Bearing: Non-weight bearing Pain Pain Assessment Pain Assessment: 0-10 Pain Score: 8 Pain Type: Surgical pain Pain Location: Leg Pain Orientation: Left, Distal Pain Interventions: RN Notified(RN notes administering medication prior to session) Cognition Cognition Arousal/Alertness: Alert, Appropriate responses to stimuli Orientation : Oriented X4 (person, place, time, situation) Following Commands: Follows all commands and directions without difficulty Safety Judgment: Good awareness of safety precautions Compliance/Behavior: Easy to engage 6 Clicks Basic Mobility - 6 Click How much difficulty does the patient have: Turning over in bed: A lot How much difficulty does the patient currently have: Sitting down and standing up from a chair witharms?: A lot How much difficulty does the patient have: Moving from lying on back to sitting on the side of the bed?: A lot How much difficulty does the patient have: Moving to and from a bed to a chair including wheelchair?: A lot How much help does the patient currently need: Walk in hospital room?: Total How much help from another person does the patient currently need: Climbing 3-5 steps with a railing?: Total Total 6 Click Score (range 6-24): 10 Score Interpretation: 10 Bed Mobility Bed Mobility Bed Mobility: Yes Bed Mobility 1 Bed Mobility From 1: Supine Bed Mobility Type 1: To Bed Mobility to 1: Edge of bed Level of Assistance 1: Maximum Assist(x2) Bed Mobility Comments 1: HOB elevated 30 degrees; assist for trunk elevation and hip negotiation toward EOB Transfers Transfers Transfer: Yes Transfer 1 Transfer From 1: Sit, Bed Transfer Type 1: To and from Transfer to 1: Stand Technique 1: Stand to sit, Sit to stand Transfer Device 1: Hand held assist Transfer Level of Assistance 1: Maximum Assist(x2) Trials/Comments 1: x2 trials from EOB; assist for force production and hip/knee extension for upright posture Transfers 2 Transfer From 2: Sit, Bed Transfer Type 2: To Transfer to 2: Sit, Chair with arms Technique 2: Stand pivot Transfer Device 2: Hand held assist Transfer Level of Assistance 2: Maximum Assist(x2) Trials/Comments 2: assist for Balance Static Sitting Balance Static Sitting-Balance Support: Bilateral upper extremity supported, Feet supported Static Sitting-Sitting Surface: Bed Static Sitting-Level of Assistance: Close supervision, Moderate assistance Static Sitting-Comment/# of Minutes: pt requires fluctuating SBA-mod A at EOB to maintain upright posture and balance Static Standing Balance Static Standing-Balance Support: Bilateral upper extremity supported Static Standing-Standing Surface: Floor Static Standing-Level of Assistance: Maximum assistance(x2) Static Standing-Comment/# of Minutes: assist for balance and safety with hip extension Ambulation Ambulation Ambulation: No Ambulation 1 Ambulation Comments 1: Unable to assess this date Stairs Stairs Stairs: No RLE Assessment RLE Assessment RLE Assessment: Within Functional Limits LLE Assessment LLE Assessment LLE Assessment: Exceptions to WFL Strength LLE L Hip Flexion: 3/5 L Hip ABduction: 3/5 Equipment Used Equipment Use Equipment Use Comments: Gait belt in use with all OOB mobility Other Comments Other Comments Other PT Comments: Pt very self-limiting and very particular. She responds well to strict commands PT Goals Multi-Disciplinary Problems (from Physical Therapy) Active Problems Problem: Transfers Start Date: 07/09/20 Goal Start Date End Date STG - Transfer from bed to chair 07/09/20 -- Goal Details: Mod A x2 Goal Start Date End Date STG - Patient to transfer to and from sit to supine 07/09/20 -- Goal Details: Min A with HOB elevated 30 degrees Goal Start Date End Date STG - Patient will transfer sit to and from stand 07/09/20 -- Goal Details: Mod A x2 from all surfaces Problem: PT Misc Start Date: 07/09/20 Goal Start Date End Date PT LTG - Misc 1 07/09/20 -- Goal Details: Pt will perform all functional mobility min A with LRD Goal Start Date End Date PT STG - Misc 1 07/09/20 -- Goal Details: Pt will verbalize and demonstrate understanding of AKA HEP to prevent contractures and weakness of L stump. COVERER * Marion Walsh OT - 07/09/2020 8:55 AM CST Occupational Therapy For questions, please review the treatment team and contact the occupational therapist currently assigned to this patient. If an occupational therapist is not assigned to this patient, please call [phone]. 07/09/20 8838 General Chart Reviewed Yes Session Type Evaluation OT Received On 07/09/20 Safe Environment Arm Band Checked;Call Light within Reach;Notified RN;Patient found in Supine (pt left sitting in chair, BLEs elevated. ) Subjective Agreeable to Therapy Family/Caregiver Present No Occupational Therapy-Patient Goal Pt agreeable to acute goals suggested. Precautions Precautions Fall risk Weight Bearing Restrictions Yes LLE Weight Bearing NWB Home Living Type of Home Group Home Facility Home Layout One level Home Access Level entry Bathroom Toilet Standard Home Mobility Equipment Wheeled walker;Wheelchair-manual Prior Function Level of Etta Independent with ADLs;Independent functional transfers;Independent with ambulation Lives With Other (Comment) (has been at a SNF >1 year) Receives Help From Other (Comment) (SNF staff ) Driving No ADL Assistance Independent (reports assist for showering) Fall within the last 6 months No Prior Function Comments Pt reports she was able to independently transfer herself from bed to her wheelchair at her SNF, but was getting assistance for showers. Questionable historian given current abilities. LE Dressing LE Dressing: Where assessed Supine, bed LE Dressing: Level of assistance Maximum Assist LE Dressing: Assistance with Don/doff R sock;Don/doff L sock;Thread RLE into pants;Thread LLE into pants;Thread RLE into underwear;Thread LLE into underwear;Pull up over hips Toileting Toileting: Where assessed Chair Toileting: Level of assistance Maximum Assist Toileting: Assistance with Clothing management down;Clothing management up;Anterior;Posterior Toilet Transfers Toilet Transfer From Bed Toilet Transfer Type To Toilet Transfer to Standard bedside commode (simulated via bedside chair) Toilet Transfer Technique To right;Squat pivot Toilet Transfer: Equipment No device Toilet Transfers Maximal assistance (x2) Toilet Transfers Comments Max Ax2 (with PT) for force production, maintaining balance, and controlling descent. Pain Assessment Pain Assessment 0-10 Pain Score 8 Pain Location Leg Pain Orientation Left Pain Interventions RN Notified (RN reported pain meds administered pre-session) Activity Tolerance Activity Tolerance Comments Yasmin: hard Cognition Arousal/Alertness Alert;Appropriate responses to stimuli Attention Span Appears intact Current communication Appears Intact Orientation Oriented X4 (person, place, time, situation) Following Commands Follows all commands and directions without difficulty Compliance/Behavior Easy to engage (somewhat irritable) Balance Balance Yes Static Sitting Balance Static Sitting-Balance Support Feet supported;Bilateral upper extremity supported Static Sitting-Sitting Surface Bed Static Sitting-Level of Assistance Contact guard;Close supervision;Moderate assistance;Minimum assistance Static Sitting-Comment/# of Minutes fluctuating between sba-mod a at EOB to maintain trunk control.~5 minutes at EOB. Static Standing Balance Static Standing-Balance Support Bilateral upper extremity supported Static Standing-Standing Surface Floor Static Standing-Level of Assistance Maximum assistance (x2 with PT) Static Standing-Comment/# of Minutes Max Ax2 for maintaining balance/safety and fine trunk/hip extension. Bed Mobility Bed Mobility Yes Bed Mobility 1 Bed Mobility From 1 Supine Bed Mobility Type 1 To Bed Mobility to 1 Short sit;Edge of bed Level of Assistance 1 Maximum Assist (x2) Bed Mobility Comments 1 Max Ax2 for trunk elevation and maneuvering B hips to EOB. Transfers Transfer Yes (gait belt donned for OOB mobility) Transfer 1 Transfer From 1 Sit Transfer Type 1 To and from Transfer to 1 Stand Technique 1 Sit to stand;Stand to sit Transfer Device 1 No device Transfer Level of Assistance 1 Maximum Assist (x2) Trials/Comments 1 Max Ax2 for force production, maintaining balance, and controlling descent. RUE Assessment RUE Assessment X RUE AROM (degrees) R Shoulder Flexion 90 Degrees (chronic pain after rotator cuff injury, per patient. ) LUE Assessment LUE Assessment WFL Other Comments Comments Discussed plan of care with patient verbalizing understanding. Patient needs a lot of encouragement to participate and is very painful at time of evaluation. Will continue to follow and encourage participation. Assessment Problem List Decreased upper extremity strength;Decreased upper extremity range of motion;Decreasedendurance;Decreased balance;Decreased functional mobility;Decreased ADL independence;Decreased IADLindependence;Pain Barriers to Discharge Current Mobility Status;Other (Comment) (fall risk ) Plan Plan Plan of care initiated;If this is the last note, consider this the discharge summary Recommendation/Plan OT Recommendation Group Home Facility OT Frequency 2-3x/wk Treatment/Interventions ADL/IADL retraining;Balance Training;Bed mobility;Endurance training;Functional activity;Functional mobility training;Functional transfer training;Strengthening;Therapeutic act ivity;Therapeutic exercise;Transfer training OT - Next Appointment 07/11/20 OT - OK to Discharge No OT Evaluation Complete Yes COVERER * Obed Martinez MD - 07/09/2020 7:19 AM CST Daily Progress Note Division of Hospital Medicine Name: Celestina Ansari Age: 69 y.o. female : 1950 Today: July 09, 2020 Admit: 07/05/2020 Bed: [id number] Subjective Chief Complaint: Leg infection, COVID-19 Interval History: Patient tested POSITIVE for COVID-19 on 06/21/20 at her residential. Afebrile. Breathing at baseline. On 4L of O2 this morning (her baseline). Status post OR with orthopedics yesterday for Andi ALARCON. Pain is well-controlled with morning. Objective Medications: Scheduled: ??? [Held by Provider] acetaminophen, 1,000 mg, oral, Q8H ??? amLODIPine, 10 mg, oral, Daily ??? atorvastatin, 10 mg, oral, Nightly ??? baclofen, 2.5 mg, oral, TID with meals ??? busPIRone, 5 mg, oral, Daily ??? cefepime, 1,000 mg, intravenous, Q8H ??? docusate sodium, 100 mg, oral, Daily ??? [Held by Provider] enoxaparin, 40 mg, subcutaneous, Daily-2100 ??? fluticasone propionate, 2 spray, each nostril, Daily ??? [Held by Provider] furosemide, 40 mg, oral, BID ??? gabapentin, 400 mg, oral, Q8H ??? losartan, 50 mg, oral, Daily ??? metoprolol tartrate, 25 mg, oral, Q6H KELIN ??? pantoprazole DR, 40 mg, oral, Daily ??? sodium chloride 0.9%, 0.5-20 mL, intra-catheter, Q8H KELIN ??? sodium chloride 0.9%, 5-10 mL, intra-catheter, Q8H KELIN ??? [Held by Provider] spironolactone, 25 mg, oral, Daily ??? vancomycin, 1,750 mg, intravenous, Q24H Infusions: ??? Lactated Ringer's, 30 mL/hr, Last Rate: Stopped (07/08/20 1605) PRN: albuterol HFA ??? HYDROmorphone ??? morphine ??? ondansetron ODT ??? oxyCODONE ??? sodium chloride 0.9% ??? sodium chloride 0.9% Vitals: Most Recent : Vitals: 07/09/20 0921 BP: 98/77 Pulse: 103 Resp: Temp: SpO2: 100% 24hr Min/Max: Temp Min: 36 ??C (96.8 ??F) Max: 37 ??C (98.6 ??F) Pulse Min: 86 Max: 114 BP Min: 98/77 Max: 176/79 Resp Min: 11 Max: 20 SpO2 Min: 94 % Max: 100 % I&Os: I/O last 2 completed shifts: In: 700 [I.V.:700] Out: 50 [Blood:50] No intake/output data recorded. Physical exam: Constitutional: Vitals reviewed. In no acute distress. Head: Normocephalic. Atraumatic. Eyes: Sclera anicteric. Extraocular eye movements intact. ENT: Moist oral mucous membranes. Neck: Supple. Trachea midline. Cardiovascular: Normal rate. Regular rhythm. Respiratory: Non-labored respirations. Clear to auscultation bilaterally. Gastrointestinal: Soft. Nontender. Nondistended. Normoactive bowel sounds. Neurologic: Alert and oriented to person, place, time, and situation. Grossly non-focal exam. Musculoskeletal/Extremities: Warm and well-perfused. No lower extremity edema. L AKA, stump is bandaged and wrapped. Psychiatric: Pleasant and conversant. Mood congruent with affect. Judgement and insight intact. Skin: L AKA, stump is bandaged and wrapped. Lab Results: Recent Results (from the past 36 hour(s)) Tissue aerobic and anaerobic culture and gram stain Bone Leg, left Collection Time: 07/08/20 1:18 PM Specimen: Leg, left; Bone Result Value Ref Range Direct Specimen Exam Stain: Moderate polymorphonuclear leukocytes seen. No organisms seen. Report Preliminary Report: Culture results pending. Vancomycin, trough Please draw before this evening's dose of vancomycin. Thanks! Collection Time: 07/08/20 5:57 PM Result Value Ref Range Vancomycin, trough 7.9 (L) 10.0 - 20.9 mcg/mL Comprehensive metabolic panel Collection Time: 07/08/20 5:57 PM Result Value Ref Range Sodium 128 (L) 135 - 145 mmol/L Potassium, pl 4.8 3.3 - 4.9 mmol/L Chloride 91 (L) 97 - 110 mmol/L CO2 26 22 - 32 mmol/L Anion gap 11 2 - 15 mmol/L BUN 14 8 - 25 mg/dL Creatinine 0.70 0.60 - 1.10 mg/dL Glucose 187 70 - 199 mg/dL Calcium 9.1 8.5 - 10.3 mg/dL Bilirubin, total 0.2 0.1 - 1.2 mg/dL Protein, pl 7.7 6.5 - 8.5 g/dL Albumin 3.3 (L) 3.5 - 5.0 g/dL Alk phos 195 (H) 40 - 130 Units/L ALT 26 7 - 45 Units/L AST 33 10 - 45 Units/L CBC with auto differential Collection Time: 07/08/20 5:57 PM Result Value Ref Range WBC 25.6 (H) 3.8 - 9.9 K/cumm Hgb 10.9 (L) 11.9 - 15.5 g/dL Hct 34.0 (L) 35.6 - 45.5 % Plt 451 (H) 150 - 400 K/cumm MPV 9.9 9.1 - 12.3 fL RBC 3.58 (L) 3.90 - 5.20 M/cumm MCV 95.0 81.3 - 96.4 fL MCH 30.4 27.1 - 33.3 pg MCHC 32.1 (L) 32.3 - 35.7 g/dL RDW CV 11.9 11.1 - 14.9 % RDW SD 41.6 35.7 - 48.1 fL NRBC abs 0.00 0.00 - 0.01 K/cumm Blood culture Blood Collection Time: 07/08/20 5:57 PM Specimen: Blood Result Value Ref Range Report Preliminary Report: No growth to date. Blood culture Blood Collection Time: 07/08/20 5:57 PM Specimen: Blood Result Value Ref Range Report Preliminary Report: No growth to date. Differential, auto Collection Time: 07/08/20 5:57 PM Result Value Ref Range Neutrophil abs 22.5 (H) 1.7 - 6.5 K/cumm Imm gran abs 1.4 (H) 0.0 - 0.1 K/cumm Lymphocyte abs 1.0 0.8 - 3.3 K/cumm Monocyte abs 0.6 0.2 - 0.8 K/cumm Eosinophil abs 0.0 0.0 - 0.5 K/cumm Basophil abs 0.1 0.0 - 0.1 K/cumm Neutrophil pct 87.8 % Imm gran pct 5.5 % Lymphocyte pct 3.8 % Monocyte pct 2.5 % Eosinophil pct 0.0 % Basophil pct 0.4 % I have independently reviewed and interpreted the above laboratory results. Imaging Results: FL Fluoroscopy < 1 Hour (Statistical Only) The images from this study are not interpreted by Radiology. Please refer to the physician's procedure / OR operative note. XR Tibia Fibula Left 2 Views Narrative: EXAMINATION: Left tibia-fibula 2 views HISTORY: Left proximal tibia and fibula fractures FINDINGS: 3 portable radiographs of the left tibia and fibula are compared to prior radiographs from 05/07/[address] examination from 07/06/2020. There has been interval explantation of the proximal tibia hardware with unchanged mild displaced periprosthetic fractures of the left proximal tibia and fractures of the left proximal fibular shaft. The total knee arthroplasty appears unchanged. Overlying splint obscures fine bone detail. The internally fixated medial and lateral malleolar ankle fractures are again noted. Impression: 1. Interval hardware explantation with unchanged, ununited proximal tibia periprosthetic and proximal fibular shaft fractures Electronically signed by: Jordan Andrews MD, PHD I have independently reviewed and interpreted the above imaging. Additional Diagnostic/Procedure Results: I have independently reviewed records in [facility]. Assessment/Plan * Left lower extremity infection Assessment & Plan History of open periprosthetic tibia/fibula fracture s/p [...] amputation with orthopedics. - 07/06 OR tissue culture growing GNB and GPC. Will follow. - 07/06 blood cultures 1 of 2 sets positive for staph epidermidis. Repeat cultures 07/08 NGTD. - 07/08 OR bone culture and surgical pathology pending. - Continue empiric vancomycin and cefepime. - Monitor vancomycin levels. - Need for long-term antibiotics and plan pending culture and surgical pathology results. - Pain management. - PT/OT consults. - NWB left lower extremity. - ID following. COVID-19 Assessment & Plan - Patient tested positive for COVID-19 on 06/21/20 at her residential ([facility] in [place], [place]). - She reports her only symptom has been cough. - She has remained on her baseline O2 requirement for the duration of this hospitalization and has not had sequelae attributable to COVID-19 this hospitalization. - Admission chest xray showed clear lungs / no evidence of viral pneumonia. - Continues on 2-4L of supplemental O2. Baseline is 4L O2. - Has not received any COVID-19 specific therapies to date. - Plan to discuss discontinuation of COVID-19 precautions on 07/10/20 with IP (20 days from positive test). - Telemetry and continuous SpO2. - COVID isolation per hospital protocol. Hyponatremia Assessment & Plan - Pt with history of hypoNa (per report, baseline mid 120- low 130s). - Na 126 on admission. No AMS. - TSH wnl. Cortisol 17. - Diuretics were held and Na improved to 132. Restart when able. Chronic respiratory failure (CMS/[facility]) Assessment & Plan - Per pt 2/2 COPD. No sings of acute exacerbation. - Continue home flonase - Continue home albuterol prn - On home is on 4L O2 at baseline Open displaced comminuted fracture of shaft of left tibia, type IIIA, IIIB, or IIIC Assessment & Plan - See above. Moderate essential hypertension Assessment & Plan - Follows with cardiology. - Continue home amlodipine, metoprolol, lasix, spironolactone. - Switched olmesartan to losartan as not on formulary. Code Status: Full Code Diet: Adult Diet Regular DVT Prophylaxis: Lovenox Access: PIV Obed Martinez MD 07/09/2020 12:51 PM For patient related questions from 7 AM until 7 PM, please contact the primary Hospitalist team. From 7 PM until 7 AM, please call the Hospitalist cross cover phone. COVERER * Ave Samaniego RN - 07/08/2020 5:19 PM CST CM Initial Assessment Interview Note Information Obtained From: Adult child Name: Martina Ansari, daughter, (07/08/201712) Admission Source: [facility] ([facility] [place], [place] Impression: Covid 19 infection and patient taken to surgery for an AKA today. h/o traumatic open periprosthetic tibia/fibula fracture s/p ORIF (06/30/2019) and right medial malleolus fracture s/p ORIF (06/2019) complicated by poor wound healing s/p multiple courses of antibiotics, paroxysmal atrial fibrillation in setting of MRSA bacteremia (08/2019), chronic respiratory failure on 4L per pt 08/27 COPD and HTN presented to OSH for worsening swelling, tenderness and erythema of L leg wound Plan Includes: Discharge patient to appropriate level of care when medically stable. CM will continue to follow and assess for discharge needs. Primary Source of Transportation: Does the patient need discharge transport arranged?: Yes (07/08/201717) Health Insurance Coverage: [employer] [place], and [employer] Medicare HMO Prescription Coverage: yes Pharmacy: [facility] Primary Care Provider: Bernardo Edwards MD Prior to Admission: Primary Caregiver: Facility staff Support System: Children, Friends/neighbors Support system contact info (name, phone, availablity): Martina Ansari, daughter, lives in [place] and Jt Contreras Friend/neighbor [phone] Home Care Services: No Durable Medical Equipment: CPAP/Bi-PAP, Walker (wheeled), Nebulizer, Home Modification Assessment (railes in bathroom) Living Arrangements: Alone(Currently at [facility] for PT) Type of Residence: Private residence, Apartment Steps in home? : No steps inside or outside (07/08/201712) Potential discharge needs include: Dialysis: Dialysis: No (07/08/201712) Behavioral Health Services: Behavioral Health Services: No (07/08/201712) Patient expects to be Discharged to: Group Home Facility, (07/08/201717) Additional Information: Patient currently temporaraly residing in a SNF for therapy related to the above history. Patient lives in subsidized assisted apartments which is being held for patient.Patient's daughter, Martina, is in agreement for patient to return to [place], if patient is in agreement with returning. Martina stated that patient recently lost her adult daughter to cancer and that the family has had several losses this year. Martina is also concerned patient is going to be very depressed based on conversations she's had with patient and new AKA. SW consult placed in orders for assistance with placement. Patient's Identified Problem/Goal Problem: Ensure acute medical needs are met and that patient has a safe discharge plan. Goal: Secure a discharge plan that patient/family are agreeable with and ensure patient has continuum of care. Case management will follow for discharge planning and send referrals as needed. Goals include: To assure continuity of care, To maximize coping skills, To assure patient is in a safe environment and To assure access to community resources. Plan includes: 1. Collaboration with patient, MD, direct care nurse, Acetylene Cutter, Nurse Coordinator and other members of the health care team to assure needed interventions completed. 2. Return patient to optimal level of self-care post discharge. 3. Engineer Operations And Maintenance will follow for Discharge Planning - interventions as needed 4. Anticipated level of care at discharge 5. Planned Discharge Disposition Based on a comprehensive family assessment, assistance with instrumental activities of daily livingafter discharge will be provided by facility staff. Through the course of our work I determined that the facility staff possesses the skill and abilityto provide and monitor the care of the patient when he or she returns home. facility staff has the capacity to provide/monitor/arrange for the care of the patient. Finally, we determined that facility staff has the knowledge of available resources and that combining them with their existing resources will suffice to sustain and care for the patient when he or she returns home. The treatment team is aware of this information. All are in agreement with the aftercare plan. Ave Samaniego RN COVERER * Obed Martinez MD - 07/08/2020 7:08 AM CST Daily Progress Note Division of Hospital Medicine Name: Celestina Ansari Age: 69 y.o. female : 1950 Today: July 08, 2020 Admit: 07/05/2020 Bed: OR/- Subjective Chief Complaint: Leg infection, COVID-19 Interval History: Afebrile. Breathing at baseline. On 2L of O2 (on 4L at home). Anxious about AKA planned for today with orthopedics. Objective Medications: Scheduled: ??? [MAR Hold] acetaminophen, 1,000 mg, oral, Q8H ??? [MAR Hold] amLODIPine, 10 mg, oral, Daily ??? [MAR Hold] atorvastatin, 10 mg, oral, Nightly ??? [MAR Hold] baclofen, 2.5 mg, oral, TID with meals ??? [MAR Hold] busPIRone, 5 mg, oral, Daily ??? [MAR Hold] cefepime, 1,000 mg, intravenous, Q8H ??? [MAR Hold] docusate sodium, 100 mg, oral, Daily ??? [Held by Provider] enoxaparin, 40 mg, subcutaneous, Daily-2100 ??? [MAR Hold] fluticasone propionate, 2 spray, each nostril, Daily ??? [Held by Provider] furosemide, 40 mg, oral, BID ??? [MAR Hold] gabapentin, 400 mg, oral, Q8H ??? [MAR Hold] losartan, 50 mg, oral, Daily ??? [MAR Hold] metoprolol tartrate, 25 mg, oral, Q6H KELIN ??? [MAR Hold] pantoprazole DR, 40 mg, oral, Daily ??? [MAR Hold] sodium chloride 0.9%, 0.5-20 mL, intra-catheter, Q8H KELIN ??? [MAR Hold] sodium chloride 0.9%, 5-10 mL, intra-catheter, Q8H KELIN ??? [Held by Provider] spironolactone, 25 mg, oral, Daily ??? [MAR Hold] vancomycin, 15 mg/kg, intravenous, Q24H Infusions: ??? Lactated Ringer's, 30 mL/hr ??? Lactated Ringer's, 30 mL/hr, Last Rate: Stopped (07/08/20 1605) PRN: [MAR Hold] albuterol HFA ??? HYDROmorphone ??? [MAR Hold] HYDROmorphone ??? naloxone ??? ondansetron ??? [MAR Hold] ondansetron ODT ??? [MAR Hold] oxyCODONE ??? [SEP Hold] sodium chloride 0.9% ??? [SEP Hold] sodium chloride 0.9% Vitals: Most Recent : Vitals: 07/08/20 1610 BP: 157/63 Pulse: 110 Resp: 12 Temp: SpO2: 98% 24hr Min/Max: Temp Min: 36 ??C (96.8 ??F) Max: 37.2 ??C (99 ??F) Pulse Min: 76 Max: 112 BP Min: 118/50 Max: 170/92 Resp Min: 11 Max: 20 SpO2 Min: 94 % Max: 100 % I&Os: I/O last 2 completed shifts: In: 360 [P.O.:360] Out: 325 [Urine:325] I/O this shift: In: 700 [I.V.:700] Out: 50 [Blood:50] Physical exam: Constitutional: Vitals reviewed. In no acute distress. Head: Normocephalic. Atraumatic. Eyes: Sclera anicteric. Extraocular eye movements intact. ENT: Moist oral mucous membranes. Neck: Supple. Trachea midline. Cardiovascular: Normal rate. Regular rhythm. Respiratory: Non-labored respirations. Clear to auscultation bilaterally. Gastrointestinal: Soft. Nontender. Nondistended. Normoactive bowel sounds. Neurologic: Alert and oriented to person, place, time, and situation. Grossly non-focal exam. Musculoskeletal/Extremities: Warm and well-perfused. No lower extremity edema. Left leg is bandaged/ wrapped. Psychiatric: Pleasant and conversant. Mood congruent with affect. Judgement and insight intact. Skin: LLE wrapped. Lab Results: Recent Results (from the past 36 hour(s)) Comprehensive metabolic panel Collection Time: 07/07/20 10:06 PM Result Value Ref Range Sodium 129 (L) 135 - 145 mmol/L Potassium, pl 3.9 3.3 - 4.9 mmol/L Chloride 93 (L) 97 - 110 mmol/L CO2 30 22 - 32 mmol/L Anion gap 6 2 - 15 mmol/L BUN 13 8 - 25 mg/dL Creatinine 0.70 0.60 - 1.10 mg/dL Glucose 103 70 - 199 mg/dL Calcium 8.9 8.5 - 10.3 mg/dL Bilirubin, total 0.3 0.1 - 1.2 mg/dL Protein, pl 7.4 6.5 - 8.5 g/dL Albumin 3.2 (L) 3.5 - 5.0 g/dL Alk phos 206 (H) 40 - 130 Units/L ALT 25 7 - 45 Units/L AST 35 10 - 45 Units/L CBC with auto differential Collection Time: 07/07/20 10:06 PM Result Value Ref Range WBC 20.3 (H) 3.8 - 9.9 K/cumm Hgb 9.6 (L) 11.9 - 15.5 g/dL Hct 29.7 (L) 35.6 - 45.5 % Plt 436 (H) 150 - 400 K/cumm MPV 9.6 9.1 - 12.3 fL RBC 3.16 (L) 3.90 - 5.20 M/cumm MCV 94.0 81.3 - 96.4 fL MCH 30.4 27.1 - 33.3 pg MCHC 32.3 32.3 - 35.7 g/dL RDW CV 11.9 11.1 - 14.9 % RDW SD 40.9 35.7 - 48.1 fL NRBC abs 0.00 0.00 - 0.01 K/cumm Type and screen Collection Time: 07/07/20 10:06 PM Result Value Ref Range Triston, indirect Negative ABO Rh A Positive Differential, auto Collection Time: 07/07/20 10:06 PM Result Value Ref Range Neutrophil abs 14.9 (H) 1.7 - 6.5 K/cumm Imm gran abs 1.1 (H) 0.0 - 0.1 K/cumm Lymphocyte abs 2.4 0.8 - 3.3 K/cumm Monocyte abs 1.7 (H) 0.2 - 0.8 K/cumm Eosinophil abs 0.2 0.0 - 0.5 K/cumm Basophil abs 0.1 0.0 - 0.1 K/cumm Neutrophil pct 73.4 % Imm gran pct 5.3 % Lymphocyte pct 11.6 % Monocyte pct 8.4 % Eosinophil pct 0.8 % Basophil pct 0.5 % ECG 12 lead Collection Time: 07/07/20 11:59 PM Result Value Ref Range Ventricular Rate EKG/Min 76 BPM Atrial Rate 76 BPM WA-Interval (MSEC) 174 ms QRS-Interval (MSEC) 84 ms QT-Interval (MSEC) 414 ms QTc 465 ms P [place] 70 degrees R [place] -21 degrees T [place] 22 degrees Diagnosis Normal sinus rhythm Voltage criteria for left ventricular hypertrophy Abnormal ECG When compared with ECG of 05-JUL-2020 19:29, (unconfirmed) No significant change was found Confirmed by GENIE BEAR M.D ([id number]) on 07/08/2020 11:34:42 AM Tissue aerobic and anaerobic culture and gram stain Bone Leg, left Collection Time: 07/08/20 1:18 PM Specimen: Leg, left; Bone Result Value Ref Range Direct Specimen Exam Stain: Moderate polymorphonuclear leukocytes seen. No organisms seen. I have independently reviewed and interpreted the above laboratory results. Imaging Results: FL Fluoroscopy < 1 Hour (Statistical Only) The images from this study are not interpreted by Radiology. Please refer to the physician's procedure / OR operative note. XR Tibia Fibula Left 2 Views Narrative: EXAMINATION: Left tibia-fibula 2 views HISTORY: Left proximal tibia and fibula fractures FINDINGS: 3 portable radiographs of the left tibia and fibula are compared to prior radiographs from 05/07/[address] examination from 07/06/2020. There has been interval explantation of the proximal tibia hardware with unchanged mild displaced periprosthetic fractures of the left proximal tibia and fractures of the left proximal fibular shaft. The total knee arthroplasty appears unchanged. Overlying splint obscures fine bone detail. The internally fixated medial and lateral malleolar ankle fractures are again noted. Impression: 1. Interval hardware explantation with unchanged, ununited proximal tibia periprosthetic and proximal fibular shaft fractures Electronically signed by: Jordan Andrews MD, PHD I have independently reviewed and interpreted the above imaging. Additional Diagnostic/Procedure Results: I have independently reviewed records in [facility]. Assessment/Plan * Left lower extremity infection Assessment & Plan - History of open periprosthetic tibia/fibula fracture s/p definitive fixation and right medial malleolus fracture s/p ORIF (06/2019) complicated by poor wound healing s/p multiple courses of antibiotics. Patient of Dr. Shoemaker in Orthopedics. - Presents with concern for osteomyelitis / hardware infection. - L Tib/fibula CT showed mildly displaced, angulated and nonunited fractures with findings concerning for infection. - On 07/06, underwent removal of hardware and irrigation and debridement of her tibial and fibular shaft hardware (07/06). - 07/06 OR tissue culture growing GNB and GPC. Will follow. - 07/06 blood cultures 1 of 2 sets positive for staph epidermidis. Will repeat blood cultures. - Plan for above the knee amputation with orthopedics today. - Continue vancomycin and cefepime. - Monitor vancomycin levels. - Pain management. - PT/OT consults. - Nonweightbearing left lower extremity. COVID-19 Assessment & Plan - Patient states she was actually tested for COVID about 2 weeks ago. Only symptom was cough. - Admit chest xray showed clear lungs / no evidence of viral pneumonia. - Now on 2L. Baseline home 4L O2. - Will defer treatment at this point as patient only mildly symptomatic and on baseline O2. - Telemetry and continuous SpO2. - Attempting to reach facility to determine when patient tested positive for COVID-19. - COVID isolation per hospital protocol. Hyponatremia Assessment & Plan - Pt with history of hypoNa (per report, baseline mid 120- low 130s). - Na 126 on admission. No AMS. - TSH wnl. Cortisol 17. - Diuretics were held and Na improved to 132. Restart when able. Chronic respiratory failure ([facility]) Assessment & Plan - Per pt 2/ COPD. No sings of acute exacerbation. - Continue home flonase - Continue home albuterol prn - On home is on 4L O2 at baseline Open displaced comminuted fracture of shaft of left tibia, type IIIA, IIIB, or IIIC Assessment & Plan - See above. Moderate essential hypertension Assessment & Plan - Follows with cardiology. - Continue home amlodipine, metoprolol, lasix, spironolactone. - Switched olmesartan to losartan as not on formulary. Code Status: Full Code Diet: NPO Diet DVT Prophylaxis: Lovenox Access: PIV Obed Martinez MD 07/08/2020 4:28 PM For patient related questions from 7 AM until 7 PM, please contact the primary Hospitalist team. From 7 PM until 7 AM, please call the Hospitalist cross cover phone. COVERER * Vianney Dia MD - 07/07/2020 6:28 PM CST Daily Progress Note Division of Hospital Medicine COVID Unit Name: Celestina Ansari Today: July 07, 2020 : 1950 Age: 69 y.o. female Admit: 07/05/2020 Bed: [id number] Subjective Chief complaint: L leg infection c/f OM, hyponatremia, COVID Interval History: - Underwent removal of hardware and irrigation and debridement of her tibial and fibular shaft hardware yesterday. - Tissue culture growing GNB and GPC. Bcx growing staph epidermidis. - Ortho discussed amputation with pt. She would like to try antibiotic therapy first and re-evaluate. Objective Medications: Scheduled: ??? acetaminophen, 1,000 mg, oral, Q8H ??? amLODIPine, 10 mg, oral, Daily ??? atorvastatin, 10 mg, oral, Nightly ??? baclofen, 2.5 mg, oral, TID with meals ??? busPIRone, 5 mg, oral, Daily ??? cefepime, 1,000 mg, intravenous, Q8H ??? docusate sodium, 100 mg, oral, Daily ??? enoxaparin, 40 mg, subcutaneous, Daily-2100 ??? fluticasone propionate, 2 spray, each nostril, Daily ??? [Held by Provider] furosemide, 40 mg, oral, BID ??? gabapentin, 400 mg, oral, Q8H ??? lidocaine, 1-2 mL, subcutaneous, Once ??? losartan, 50 mg, oral, Daily ??? metoprolol tartrate, 25 mg, oral, Q6H KELIN ??? pantoprazole DR, 40 mg, oral, Daily ??? sodium chloride 0.9%, 0.5-20 mL, intra-catheter, Q8H KELIN ??? sodium chloride 0.9%, 5-10 mL, intra-catheter, Q8H KELIN ??? [Held by Provider] spironolactone, 25 mg, oral, Daily ??? vancomycin, 15 mg/kg, intravenous, Q24H Infusions: ??? Lactated Ringer's, 30 mL/hr ??? Lactated Ringer's, 30 mL/hr PRN: albuterol HFA ??? HYDROmorphone ??? ondansetron ODT ??? oxyCODONE ??? sodium chloride 0.9% ??? sodium chloride 0.9% Vitals: 24hr Min/Max: Temp Min: 36 ??C (96.8 ??F) Max: 37.3 ??C (99.1 ??F) Pulse Min: 82 Max: 107 BP Min: 116/51 Max: 149/66 Resp Min: 12 Max: 23 SpO2 Min: 98 % Max: 100 % Most Recent: Vitals: 07/07/20 1300 BP: 132/68 Pulse: 82 Resp: 18 Temp: 36.1 ??C (97 ??F) SpO2: 98% Intake/Output Summary (Last 24 hours) at 07/07/2020 1827 Last data filed at 07/07/2020 1218 Gross per 24 hour Intake 1120 ml Output 50 ml Net 1070 ml Physical Exam: General: In no acute distress. Well-nourished and well-developed. Head: Normocephalic, atraumatic. Eyes: Sclera nonicteric. Pupils equal/round/reactive to light. Extraocular eye movements intact. ENT: No nasal discharge. Moist mucous membranes. Oropharynx nonerythematous, without exudates. Cardiac: Normal rate, regular rhythm. Pulmonary: No respiratory distress on 2L. Clear to auscultation bilaterally. Abdomen: Soft, nondistended, nontender. Extremities: No edema. Warm and well perfused. 2+ distal pulses. Neurologic: Alert and oriented to person/place/time. Psychiatric: Normal mood and affect, pleasant and conversant. Dermatologic: LLE wrapped. Lab/Diagnostic Review: Recent Results (from the past 24 hour(s)) Comprehensive metabolic panel Collection Time: 07/06/20 11:07 PM Result Value Ref Range Sodium 132 (L) 135 - 145 mmol/L Potassium, pl 4.9 3.3 - 4.9 mmol/L Chloride 93 (L) 97 - 110 mmol/L CO2 27 22 - 32 mmol/L Anion gap 12 2 - 15 mmol/L BUN 15 8 - 25 mg/dL Creatinine 0.77 0.60 - 1.10 mg/dL Glucose 133 70 - 199 mg/dL Calcium 9.3 8.5 - 10.3 mg/dL Bilirubin, total 0.3 0.1 - 1.2 mg/dL Protein, pl 7.5 6.5 - 8.5 g/dL Albumin 3.3 (L) 3.5 - 5.0 g/dL Alk phos 183 (H) 40 - 130 Units/L ALT 20 7 - 45 Units/L AST 26 10 - 45 Units/L CBC with auto differential Collection Time: 07/06/20 11:07 PM Result Value Ref Range WBC 24.7 (H) 3.8 - 9.9 K/cumm Hgb 11.0 (L) 11.9 - 15.5 g/dL Hct 33.6 (L) 35.6 - 45.5 % Plt 448 (H) 150 - 400 K/cumm MPV 9.5 9.1 - 12.3 fL RBC 3.62 (L) 3.90 - 5.20 M/cumm MCV 92.8 81.3 - 96.4 fL MCH 30.4 27.1 - 33.3 pg MCHC 32.7 32.3 - 35.7 g/dL RDW CV 11.8 11.1 - 14.9 % RDW SD 40.2 35.7 - 48.1 fL NRBC abs 0.00 0.00 - 0.01 K/cumm Manual Differential Collection Time: 07/06/20 11:07 PM Result Value Ref Range Differential Manual Cells Counted 115 Neutrophil abs 22.1 (H) 1.7 - 6.5 K/cumm Imm gran abs 0.6 (H) 0.0 - 0.1 K/cumm Lymphocyte abs 1.1 0.8 - 3.3 K/cumm Monocyte abs 0.9 (H) 0.2 - 0.8 K/cumm Neutrophil pct 89.5 % Lymphocyte pct 3.5 % Monocyte pct 3.5 % Neutrophilic metamyelocytes 2.6 % Variant lymphs 0.9 % Hypersegmentation Present (A) I have reviewed the laboratory results. Imaging Results: FL Fluoroscopy < 1 Hour The images from this study are not interpreted by Radiology. Please refer to the physician's procedure / OR operative note. XR Chest 1 View Narrative: EXAMINATION: 1 view chest radiograph Impression: Comparison chest radiograph 06/30/2019. The lungs are clear. There is no focal opacity or pulmonary edema. There is no pleural effusion or pneumothorax. Cardiomediastinal silhouette is stable with normal heart size and atherosclerotic calcification of the mildly tortuous thoracic aorta. Dictated by: Mathew Guzmán M.D. The radiology attending physician has personally reviewed this study, and had reviewed and/or edited this written report and agrees with it. Electronically signed by: Pura Rosas M.D. CT Tibia Fibula Left WO Contrast Narrative: EXAMINATION: CT LOWER LEG CALF LEFT WO CONTRAST HISTORY: 69-year-old with left periprosthetic fracture status post open reduction internal fixation, with prosthetic infection in 2019,, status post prior irrigations and debridement. Now with worsening edema and drainage. 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 Lucencies are noted about the distal aspect of the tibial component. Additional distal lateral valvular fixation plate, medial malleolus fixation screw, are also present. Topogram notes fixation plate on the distal right medial malleolus and radiodensity along the left great toe metatarsophalangeal joint. The tibial fracture is nonunited with slightly laterally angulated, with mild displacement of a posterior fracture fragment and overlying periosteal reaction. The fibular fracture is also nonunited, with slight lateral and posterior angulation, and full shaft width posterior displacement. There is mild skin thickening overlying the anterior and medial aspect of the proximal tibia, without definite organized fluid collection several however, beam hardening artifact from adjacent hardware mildly limits evaluation. Diffuse muscle atrophy. Impression: Periprosthetic fracture of the left proximal tibia and fibula, with changes of prior open reduction internal fixation. These fractures remain mildly displaced, mildly angulated, and nonunited, with overlying periosteal reaction, which can be seen in setting of infection. Dictated by: Adithya Terry M.D. The radiology attending physician has personally reviewed this study, and had reviewed and/or edited this written report and agrees with it. Electronically signed by: Lavell Lawson M.D. I have independently reviewed and interpreted - Tele: NSR ?? Assessment/Plan * Left lower extremity infection Assessment & Plan - History of open periprosthetic tibia/fibula fracture [...] - PT/OT - Nonweightbearing left lower extremity COVID-19 Assessment & Plan - Pt states she was actually tested [...] up. - COVID isolation per hospital protocol Hyponatremia Assessment & Plan - Pt with history of hypoNa (per report, baseline mid 120- low 130s). - Na 126 on admission. No AMS. - TSH wnl. Cortisol 17. - Diuretics were held and Na improved to 132. Restart when able. Chronic respiratory failure ([facility]) Assessment & Plan - Per pt 2/2 COPD. No sings of acute exacerbation. - Continue home flonase - Continue home albuterol prn - On baseline 4L O2 Moderate essential hypertension Assessment & Plan - Follows with cardiology - Continue home amlodipine, metoprolol, lasix, spironolactone - Switched olmesartan to losartan as not on formulary Code Status: Full Code Diet: Adult Diet Regular NPO Diet DVT Prophylaxis: SCD. Holding enoxaparin for procedure. Please call [phone] with any questions or concerns from 7am-7pm. Please call the [employer] phone after hours. Vianney Caballero MD 07/07/2020 6:27 PM COVERER * Gumaro Graham MD - 07/07/2020 12:11 PM CST Orthopaedic Surgery Daily Progress HPI: Celestina Ansari is [id number] F p/w L T3 open periprosthetic tib/fib shaft fx periprosthetic infection s/p 2 weeks worsening erythema, 2d purulent drainage. Repeat I&D, revision ORIF w/ [facility] (06/30/19),last seen 05/13. Completed PO Clinda 7d w/o improvement, +f/c. Not on anticoag. Exam: AFVSS 2x2cm anterior, 5mm ant- medial proximal wound surrounding erythema, expressible purulent dc, probes to bone. NVI at baseline. PMH: seizures, bipolar, HTN, sick sinus syndrome, COPD (4L baseline). SH: WC bound in SNF since surg. Subjective Interval History: OR yesterday, NOAE. Doing well this AM. Recon suggested that the best option for her leg may be an amputation. The patient was not amenable to this at this time but will think about it. She was also not interested in talking with a amputee from [facility] at this time. Objective Vitals: 24hr Min/Max: Temp Min: 36 ??C (96.8 ??F) Max: 37.3 ??C (99.1 ??F) Pulse Min: 66 Max: 107 BP Min: 116/51 Max: 149/66 Resp Min: 12 Max: 23 SpO2 Min: 98 % Max: 100 % I/O last 2 completed shifts: In: 1010 [P.O.:310; I.V.:700] Out: 850 [Urine:800; Blood:50] No intake/output data recorded. Physical Exam: Awake, alert, oriented No acute distress Breathing regular and unlabored LLE: Dressings are clean, dry, and intact Sensory intact to SP/DP/S/S/T Motor: 0/5 TA/GSC/EHL/FHL, able to flex/extend lesser toes 1+ DP Laboratory review: OR cultures with few to rare Gram-positive cocci and Gram-negative bacilli x3 Assessment 69F with L T3 open periprosthetic tib/fib shaft fx with periprosthetic infection now status post removal of hardware and irrigation and debridement of her tibial and fibular shaft hardware. Her knee prosthesis remains in place and is at risk of continued infection. The patient would likely benefit from amputation as a definitive surgery, however she is not psychologically prepared for this. Given that this surgery is not urgent, we will continue to follow her should she change her mind. Plan ??? PT postop ??? Nonweightbearing left lower extremity ??? Pain control ??? Diet per primary team ??? Q4 NV checks ??? Antibiotics per Infectious Disease: Currently on vanc/cefepime ??? Follow OR cultures ??? DVT ppx: For primary team, we prefer Lovenox Gumaro Graham MD Orthopaedic Surgery PGY-3 [facility] in [place] Please call or text with questions or concerns Phone number can be found on [email or web address] COVERER * Vianney Dia MD - 07/06/2020 3:11 PM CST Daily Progress Note Division of Hospital Medicine COVID Unit Name: Celestina Ansari Today: July 06, 2020 : 1950 Age: 69 y.o. female Admit: 07/05/2020 Bed: [id number] Subjective Chief complaint: L leg infection c/f OM, UTI, hyponatremia, COVID Interval History: - No acute events overnight. Remains afebrile and hemodynamically stable. Bcx NGTD. - L Tib/fibula CT showed mildly displaced, angulated and nonunited fractures with findings concerning for infection. - Plan for OR today?? - UA suggestive of UTI. Cultures pending. - Na 126 (per report, baseline high 120s- low 130s). Objective Medications: Scheduled: ??? acetaminophen, 1,000 mg, oral, Q8H ??? amLODIPine, 10 mg, oral, Daily ??? atorvastatin, 10 mg, oral, Nightly ??? [Held by Provider] baclofen, 2.5 mg, oral, TID with meals ??? busPIRone, 5 mg, oral, Daily ??? [Held by Provider] cefepime, 1,000 mg, intravenous, Q8H ??? docusate sodium, 100 mg, oral, Daily ??? [Held by Provider] enoxaparin, 40 mg, subcutaneous, Daily-2100 ??? fluticasone propionate, 2 spray, each nostril, Daily ??? furosemide, 40 mg, oral, BID ??? gabapentin, 400 mg, oral, Q8H ??? losartan, 50 mg, oral, Daily ??? metoprolol tartrate, 25 mg, oral, Q6H KELIN ??? pantoprazole DR, 40 mg, oral, Daily ??? sodium chloride 0.9%, 0.5-20 mL, intra-catheter, Q8H KELIN ??? spironolactone, 25 mg, oral, Daily ??? [Held by Provider] vancomycin, 15 mg/kg, intravenous, Q24H Infusions: PRN: albuterol HFA ??? ondansetron ODT ??? oxyCODONE ??? sodium chloride 0.9% Vitals: 24hr Min/Max: Temp Min: 36.8 ??C (98.2 ??F) Max: 37.1 ??C (98.8 ??F) Pulse Min: 72 Max: 96 BP Min: 126/62 Max: 133/53 Resp Min: 20 Max: 20 SpO2 Min: 96 % Max: 100 % Most Recent: Vitals: 07/06/20 1450 BP: Pulse: 72 Resp: Temp: SpO2: Intake/Output Summary (Last 24 hours) at 07/06/2020 1510 Last data filed at 07/06/2020 0505 Gross per 24 hour Intake -- Output 850 ml Net -850 ml Physical Exam: General: In no acute distress. Well-nourished and well-developed. Head: Normocephalic, atraumatic. Eyes: Sclera nonicteric. Pupils equal/round/reactive to light. Extraocular eye movements intact. ENT: No nasal discharge. Moist mucous membranes. Oropharynx nonerythematous, without exudates. Cardiac: Normal rate, regular rhythm. Pulmonary: No respiratory distress on 4L. Clear to auscultation bilaterally. Abdomen: Soft, nondistended, nontender. Extremities: No edema. Warm and well perfused. 2+ distal pulses. Neurologic: Alert and oriented to person/place/time. Psychiatric: Normal mood and affect, pleasant and conversant. Dermatologic: LLE wrapped. Lab/Diagnostic Review: Recent Results (from the past 24 hour(s)) Basic metabolic panel Collection Time: 07/05/20 6:13 PM Result Value Ref Range Sodium 126 (L) 135 - 145 mmol/L Potassium, pl 4.3 3.3 - 4.9 mmol/L Chloride 90 (L) 97 - 110 mmol/L CO2 29 22 - 32 mmol/L Anion gap 7 2 - 15 mmol/L BUN 16 8 - 25 mg/dL Creatinine 1.02 0.60 - 1.10 mg/dL Glucose 101 70 - 199 mg/dL Calcium 9.2 8.5 - 10.3 mg/dL Hepatic function panel Collection Time: 07/05/20 6:13 PM Result Value Ref Range Bilirubin, total 0.3 0.1 - 1.2 mg/dL Bilirubin, direct <0.2 0.1 - 0.3 mg/dL Protein, pl 7.4 6.5 - 8.5 g/dL Albumin 3.4 (L) 3.5 - 5.0 g/dL Alk phos 199 (H) 40 - 130 Units/L ALT 26 7 - 45 Units/L AST 34 10 - 45 Units/L Magnesium Collection Time: 07/05/20 6:13 PM Result Value Ref Range Magnesium 1.8 1.4 - 2.5 mg/dL Phosphorus Collection Time: 07/05/20 6:13 PM Result Value Ref Range Phosphorus, pl 3.9 2.3 - 4.5 mg/dL Lactate Collection Time: 07/05/20 6:13 PM Result Value Ref Range Lactate 1.0 0.7 - 2.0 mmol/L Erythrocyte sedimentation rate Collection Time: 07/05/20 6:13 PM Result Value Ref Range Erythrocyte sedimentation rate 100 (H) 1 - 30 mm/hr CRP (acute phase) Collection Time: 07/05/20 6:13 PM Result Value Ref Range CRP 236.6 (H) <=10.0 mg/L CBC with auto differential Collection Time: 07/05/20 6:13 PM Result Value Ref Range WBC 24.0 (H) 3.8 - 9.9 K/cumm Hgb 11.1 (L) 11.9 - 15.5 g/dL Hct 32.5 (L) 35.6 - 45.5 % Plt 420 (H) 150 - 400 K/cumm MPV 9.6 9.1 - 12.3 fL RBC 3.57 (L) 3.90 - 5.20 M/cumm MCV 91.0 81.3 - 96.4 fL MCH 31.1 27.1 - 33.3 pg MCHC 34.2 32.3 - 35.7 g/dL RDW CV 11.8 11.1 - 14.9 % RDW SD 39.4 35.7 - 48.1 fL NRBC abs 0.00 0.00 - 0.01 K/cumm Protime-INR Collection Time: 07/05/20 6:13 PM Result Value Ref Range PT 14.6 (H) 8.6 - 13.0 sec INR 1.3 (H) 0.8 - 1.2 D-dimer, quantitative Collection Time: 07/05/20 6:13 PM Result Value Ref Range D-Dimer 1,324 (H) <=499 ng/mL FEU Differential, auto Collection Time: 07/05/20 6:13 PM Result Value Ref Range Neutrophil abs 19.3 (H) 1.7 - 6.5 K/cumm Imm gran abs 1.6 (H) 0.0 - 0.1 K/cumm Lymphocyte abs 1.5 0.8 - 3.3 K/cumm Monocyte abs 1.4 (H) 0.2 - 0.8 K/cumm Eosinophil abs 0.2 0.0 - 0.5 K/cumm Basophil abs 0.1 0.0 - 0.1 K/cumm Neutrophil pct 80.3 % Imm gran pct 6.5 % Lymphocyte pct 6.2 % Monocyte pct 5.9 % Eosinophil pct 0.7 % Basophil pct 0.4 % Hemoglobin A1c Collection Time: 07/05/20 6:13 PM Result Value Ref Range Hgb A1C 5.3 4.0 - 5.6 % Estimated Average Glucose 105 mg/dL aPTT Collection Time: 07/05/20 9:22 PM Result Value Ref Range aPTT 32 25 - 37 sec Type and screen Collection Time: 07/05/20 9:22 PM Result Value Ref Range ABO Rh A Positive Triston, indirect Negative Blood culture Blood Collection Time: 07/05/20 9:22 PM Specimen: Blood Result Value Ref Range Report Preliminary Report: No growth to date. Blood culture Blood Collection Time: 07/05/20 9:22 PM Specimen: Blood Result Value Ref Range Report Preliminary Report: No growth to date. Osmolality, blood Collection Time: 07/05/20 9:22 PM Result Value Ref Range Osmo 268 (L) 275 - 300 mOsm/kg TSH reflex to free T4 Collection Time: 07/05/20 9:22 PM Result Value Ref Range TSH 1.06 0.30 - 4.20 mcIUnit/mL Cortisol Collection Time: 07/05/20 9:22 PM Result Value Ref Range Cortisol 17.9 3.7 - 19.4 mcg/dL Osmolality, urine Collection Time: 07/05/20 11:19 PM Result Value Ref Range Osmo, ur 242 mOsm/kg Sodium, urine, random Collection Time: 07/05/20 11:19 PM Result Value Ref Range Sodium, ur <20 mmol/L Urinalysis reflex to microscopic and culture Urine Collection Time: 07/05/20 11:19 PM Specimen: Urine Result Value Ref Range Color, ur Yellow Yellow Clarity, ur Cloudy (A) Clear Specific gravity, ur 1.011 1.010 - 1.025 pH, urine 6 Protein, ur ql Negative Negative Glucose, ur ql Negative Negative Ketones, ur Trace Negative Bilirubin, ur Negative Negative Blood, ur Negative Negative Urobilinogen, ur <2.0 <2.0 mg/dL Nitrite, ur Negative Negative Leukocyte esterase, ur 3+ (A) Negative UA reflex comment Reflex to microscopic UA will be performed. Urinalysis, microscopic only Collection Time: 07/05/20 11:19 PM Result Value Ref Range WBC, ur >50 (A) 0 - 5 /HPF RBC, ur 21-50 (A) 0 - 2 /HPF Epithelial cells, squamous, ur 1-5 0 - 5 /HPF Bacteria, ur Trace (A) Yeast, ur 2+ (A) Mucous, ur Present (A) Amorphous crystals, ur Trace (A) Culture Reflex Comment Reflex to urine culture will be performed. I have reviewed the laboratory results. Imaging Results: XR Chest 1 View Narrative: EXAMINATION: 1 view chest radiograph Impression: Comparison chest radiograph 06/30/2019. The lungs are clear. There is no focal opacity or pulmonary edema. There is no pleural effusion or pneumothorax. Cardiomediastinal silhouette is stable with normal heart size and atherosclerotic calcification of the mildly tortuous thoracic aorta. Dictated by: Mathew Guzmán M.D. The radiology attending physician has personally reviewed this study, and had reviewed and/or edited this written report and agrees with it. Electronically signed by: Pura Rosas M.D. CT Tibia Fibula Left WO Contrast Narrative: EXAMINATION: CT LOWER LEG CALF LEFT WO CONTRAST HISTORY: 69-year-old with left periprosthetic fracture status post open reduction internal fixation, with prosthetic infection in 2019,, status post prior irrigations and debridement. Now with worsening edema and drainage. 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 Lucencies are noted about the distal aspect of the tibial component. Additional distal lateral valvular fixation plate, medial malleolus fixation screw, are also present. Topogram notes fixation plate on the distal right medial malleolus and radiodensity along the left great toe metatarsophalangeal joint. The tibial fracture is nonunited with slightly laterally angulated, with mild displacement of a posterior fracture fragment and overlying periosteal reaction. The fibular fracture is also nonunited, with slight lateral and posterior angulation, and full shaft width posterior displacement. There is mild skin thickening overlying the anterior and medial aspect of the proximal tibia, without definite organized fluid collection several however, beam hardening artifact from adjacent hardware mildly limits evaluation. Diffuse muscle atrophy. Impression: Periprosthetic fracture of the left proximal tibia and fibula, with changes of prior open reduction internal fixation. These fractures remain mildly displaced, mildly angulated, and nonunited, with overlying periosteal reaction, which can be seen in setting of infection. Dictated by: Adithya Terry M.D. The radiology attending physician has personally reviewed this study, and had reviewed and/or edited this written report and agrees with it. Electronically signed by: Lavell Lawson M.D. I have independently reviewed and interpreted - Tele: NSR - L tib/fib CT: Fractures of left proximal tibia and fibula fractures displaced ?? Assessment/Plan * Left leg wound Assessment & Plan - Cellulitis vs subcutaneous infection vs OM [...] 6 wk course of antibiotics. Appreciate recs. COVID-19 Assessment & Plan - Per report, pt was tested for COVID at SNF 2 days prior to admission (would be on 07/03). Per pt,residents get regularly tested for COVID and only symptom was cough. - On baseline home 4L O2 - Will defer treatment at this point as pt only mildly symptomatic and on baseline O2 - Telemetry and continuous SpO2 - COVID isolation per hospital protocol Hyponatremia Assessment & Plan - Pt with history of hypoNa (per report, baseline mid 120- low 130s). - Na 126 on admission. No AMS. - TSH wnl. Cortisol 17. - NS IVF - CTM Na UTI (urinary tract infection) Assessment & Plan - UA suggestive of UTI. Bacteria +, Yeast + - Urcx and Bcx pending - Start antimicrobials post-OR Chronic respiratory failure ([facility]) Assessment & Plan - Per pt 2/2 COPD. No sings of acute exacerbation. - Continue home flonase - Continue home albuterol prn - On baseline 4L O2 Moderate essential hypertension Assessment & Plan - Follows with cardiology - Continue home amlodipine, metoprolol, lasix, spironolactone - Switched olmesartan to losartan as not on formulary Code Status: Full Code Diet: NPO Diet DVT Prophylaxis: SCD. Holding enoxaparin for procedure. Please call [phone] with any questions or concerns from 7am-7pm. Please call the [employer] phone after hours. Vianney Caballero MD 07/06/2020 3:10 PM COVERER * Guamro Graham MD - 07/06/2020 11:08 AM CST Orthopaedic Surgery Daily Progress HPI: Celestina Ansari is a69y F p/w L T3 open periprosthetic tib/fib shaft fx periprosthetic infection s/p 2 weeks worsening erythema, 2d purulent drainage. Repeat I&D, revision ORIF w/ [facility] (06/30/19),last seen 05/13. Completed PO Clinda 7d w/o improvement, +f/c. Not on anticoag. Exam: AFVSS 2x2cm anterior, 5mm ant- medial proximal wound surrounding erythema, expressible purulent dc, probes to bone. NVI at baseline. PMH: seizures, bipolar, HTN, sick sinus syndrome, COPD (4L baseline). SH: WC bound in SNF since surg. Subjective Interval History: No acute overnight events. Pain well controlled. Plan for OR today. Objective Vitals: 24hr Min/Max: Temp Min: 36.8 ??C (98.2 ??F) Max: 37.1 ??C (98.8 ??F) Pulse Min: 78 Max: 96 BP Min: 126/62 Max: 133/53 Resp Min: 20 Max: 20 SpO2 Min: 96 % Max: 100 % I/O last 2 completed shifts: In: - Out: 850 [Urine:850] No intake/output data recorded. Physical Exam: Awake, alert, oriented No acute distress Breathing regular and unlabored LLE: No pain with hip compression, log roll, NTTP to thigh/knee/leg/ankle/foot Sensory intact to SP/DP/S/S/T Motor: 0/5 TA/GSC/EHL/FHL, able to flex/extend lesser toes 1+ DP Assessment 69F with L T3 open periprosthetic tib/fib shaft fx with periprosthetic infection, plan for OR today Plan ??? PT postop ??? WB status to be updates after OR ??? Pain control ??? NPO ??? Q4 NV checks ??? Hold antibiotics if pt stable in order to get OR cultures ??? ID Bone and Joint consult ??? DVT ppx: per primary team after OR today, hold for OR Gumaro Graham MD Orthopaedic Surgery PGY-3 [facility] in [place] Please call or text with questions or concerns Phone number can be found on [email or web address] COVERER documented in this encounter H&P Notes * Jacobo Shoemaker MD - 07/08/2020 9:38 AM CST I have reviewed the H&P, examined the patient, and endorse the findings as written. Plan of Care : Based on the above findings, I consider Celestina Ansari to be an acceptable risk for : Procedure(s): AMPUTATION ABOVE KNEE COVERER Source Note - Leroy Reddy MD - 07/05/2020 9:08 PM BODY COVERER Orthopaedic Surgery Trauma Consult July 05, 2020 9:10 PM Reason for Consult: L T3 open periprosthetic tib/fib shaft fx periprosthetic infection Requesting Provider: No ref. provider found Consulting Provider: Resident - Maureen/Attending - Sondra Patient (home) Insurance: Payor: [employer] MEDICARE / Plan: [employer] [facility] / Product Type: *No Product type* / Note: This is the primary coverage, but no account was found for this location or the patient's primarylocation. HPI: Celestina Ansari is a69y F p/w L T3 open periprosthetic tib/fib shaft fx periprosthetic infection s/p 2 weeks worsening erythema, 2d purulent drainage. Repeat I&D, revision ORIF w/ [facility] (06/30/19),last seen 05/13. Completed PO Clinda 7d w/o improvement, +f/c. Not on anticoag. Exam: AFVSS 2x2cm anterior, 5mm ant- medial proximal wound surrounding erythema, expressible purulent dc, probes to bone. NVI at baseline. PMH: seizures, bipolar, HTN, sick sinus syndrome, COPD (4L baseline). SH: WC bound in SNF since surg. Pain: -Location: site of injury -Onset: immediate -Duration: hours -Severity: -03/04 -Quality: sharp, stabbing -Alleviating Factors: rest, pain medications -Exacerbating Factors: movement, weightbearing Past Medical History: Diagnosis Date ??? Asthma [...] Right 08/2009 ??? TOE FUSION Left 08/1994 Prior to Admission medications Medication Sig Start Date End Date Taking? Authorizing Provider Aerochamber Plus Flow-Vu spacer 12/01/19 Lucille Junior MD albuterol HFA (PROVENTIL HFA,VENTOLIN HFA,PROAIR HFA) 90 mcg/actuation inhaler Inhale 2 puffs every4 (four) hours as needed for shortness of breath. Indications: Asthma Attack Lucille Junior MD ALPRAZolam (XANAX) 0.25 mg tablet 04/02/20 Lucille Junior MD amLODIPine (NORVASC) 10 mg tablet Take 10 mg by mouth daily. Indications: high blood pressure Lucille Junior MD atorvastatin (LIPITOR) 10 mg tablet Take 1 tablet (10 mg total) by mouth nightly 07/04/19 Leroy Reddy MD baclofen (LIORESAL) 5 mg tablet Take 0.5 tablets (2.5 mg total) by mouth 3 (three) times a day withmeals 07/04/19 Leroy Reddy MD busPIRone (BUSPAR) 5 mg tablet 01/07/20 Lucille Junior MD cholecalciferol (cholecalciferol) 400 unit capsule Take 400 Units by mouth daily. Indications: Vitamin D deficiency Lucille Junior MD docusate sodium (COLACE) 100 mg capsule Take 100 mg by mouth daily. Indications: constipation Lucille Junior MD enoxaparin (LOVENOX) 40 mg/0.4 mL syringe 03/29/20 Lucille Junior MD famciclovir (FAMVIR) 250 mg tablet Take 250 mg by mouth 2 (two) times a day. Indications: Other (complete free text reason below), herpes Lucille Junior MD fluticasone propionate (FLONASE) 50 mcg/actuation nasal spray Administer 2 sprays into each nostrildaily 12/18/17 Lucille Jnuior MD fluticasone propionate (FLOVENT HFA) 110 mcg/actuation inhaler Inhale 2 puffs daily. Indications: Controller Medication for Asthma Lucille Junior MD furosemide (LASIX) 40 mg tablet Take 40 mg by mouth 2 (two) times a day. Indications: visible waterretention Lucille Junior MD gabapentin (NEURONTIN) 400 mg capsule Take 1 capsule (400 mg total) by mouth every 8 (eight) hours 07/04/19 Leroy Reddy MD ipratropium-albuteroL (DUO-NEB) 0.5-2.5 mg/3 mL nebulizer solution 12/20/19 Lucille Junior MD lidocaine (LIDODERM) 5 % Place 1 patch on the skin daily 06/14/19 Lucille Junior MD LORazepam (ATIVAN) 0.5 mg tablet 05/04/20 Lucille Junior MD metoprolol (LOPRESSOR) 25 mg tablet Take 1 tablet (25 mg total) by mouth every 6 (six) hours 07/04/19 Leroy Reddy MD Nyamyc powder 03/01/20 Lucille Junior MD olmesartan (BENICAR) 40 mg tablet Take 40 mg by mouth daily. Indications: high blood pressure Lucille Junior MD ondansetron (ZOFRAN) 4 mg tablet 12/30/19 Lucille Junior MD oxyCODONE (ROXICODONE) 10 mg tablet Take 1 tablet (10 mg total) by mouth every 4 (four) hours as needed for pain 07/06/19 Piedad Cardenas MD oxyCODONE-acetaminophen (PERCOCET) 5-325 mg per tablet 01/07/20 Lucille Junior MD pantoprazole DR (PROTONIX) 40 mg EC tablet Take 40 mg by mouth daily. Indications: Stress Ulcer Prophylaxis Lucille Junior MD primidone (MYSOLINE) 50 mg tablet 05/05/20 Lucille Junior MD spironolactone (ALDACTONE) 25 mg tablet Take 1 tablet (25 mg total) by mouth daily 03/06/20 03/06/21 Vinod Deshpande MD vitamin E (AQUASOL E) 400 unit capsule Take 800 Units by mouth daily. Indications: deficiency of vitamin E Lucille Junior MD cephalexin (KEFLEX) 500 mg capsule 04/24/20 07/05/20 Lucille Junior MD doxycycline 100 mg tablet 05/01/20 07/05/20 Lucille Junior MD Allergies Allergen Reactions ??? Fish Containing Products Anaphylaxis ??? Iodine Unknown ??? Latex Unknown ??? Dunbar-3 Fatty Acids Unknown ??? Other Unknown seafood ??? Sulfa (Sulfonamide Antibiotics) Unknown ??? Valium [Diazepam] Unknown Social History Tobacco Use ??? Smoking status: Never Smoker ??? Smokeless tobacco: Never Used ??? Tobacco comment: Patient does not smoke Substance Use Topics ??? Alcohol use: Not Currently Family History Problem Relation Age of Onset ??? Heart disease Mother ??? Diabetes Mother ??? Emphysema Father ??? Diabetes Father ??? Diabetes Brother Review of Systems: Review of systems per HPI and otherwise all other systems are negative. Objective Vitals: 24hr Min/Max: Temp Min: 36.9 ??C (98.4 ??F) Max: 36.9 ??C (98.4 ??F) Pulse Min: 90 Max: 96 BP Min: 133/62 Max: 133/62 Resp Min: 20 Max: 20 SpO2 Min: 100 % Max: 100 % Most Recent: Vitals: 07/05/20 1533 07/05/20199907/05/20 2040 BP: 133/62 133/62 BP Location: Right arm Right arm Pulse: 96 90 92 Resp: 20 20 Temp: 36.9 ??C (98.4 ??F) 36.9 ??C (98.4 ??F) TempSrc: Oral Oral SpO2: 100% 100% Weight: 87.5 kg (192 lb 12.8 oz) Height: 157.5 cm (5' 2 ) Physical Exam: General: NAD Neurological: A&Ox3 Respiratory: NLB Cardiovascular: regular rhythm Musculoskeletal: -Pelvis No obvious deformity No blood at urethral meatus, perineal lacerations, or ecchymoses. - leg length discrepancy. No instability with gentle iliac crest compression. LYNNE deferred -Right Lower Extremity Skin: Skin grossly intact Appearance: No Obvious deformity -ecchymosis and swelling Palpation: NonTTP on femur, tibia, fibula, and foot ROM: Painless pROM of hip/knee/ankle Motor: +IP/Quads/Hamstrings/TA/EHL/FHL/GS Sensory: SILT sp/dp/t/francois/sa Vascular: toes WWP, and BCR<2sec -Left Lower Extremity Skin: 2x2cm anterior, 5mm ant-medial proximal wound surrounding erythema, expressible purulent dc, probes to bone. + swelling Palpation: Appropriate tenderness to palpation over proximal tibia/ calf ROM: Tibia pain w/ ROM knee, no hip/ankle pain Motor: +IP/Quads/Hamstrings/TA/GS Sensory: SILT sp/dp/t/francois/sa, neuropathic baseline Vascular: toes WWP, and BCR<2sec Lab/Radiology/Diagnostic Review: Laboratory review: Recent Results (from the past 24 hour(s)) Basic metabolic panel Collection Time: 07/05/20 6:13 PM Result Value Ref Range Sodium 126 (L) 135 - 145 mmol/L Potassium, pl 4.3 3.3 - 4.9 mmol/L Chloride 90 (L) 97 - 110 mmol/L CO2 29 22 - 32 mmol/L Anion gap 7 2 - 15 mmol/L BUN 16 8 - 25 mg/dL Creatinine 1.02 0.60 - 1.10 mg/dL Glucose 101 70 - 199 mg/dL Calcium 9.2 8.5 - 10.3 mg/dL Hepatic function panel Collection Time: 07/05/20 6:13 PM Result Value Ref Range Bilirubin, total 0.3 0.1 - 1.2 mg/dL Bilirubin, direct <0.2 0.1 - 0.3 mg/dL Protein, pl 7.4 6.5 - 8.5 g/dL Albumin 3.4 (L) 3.5 - 5.0 g/dL Alk phos 199 (H) 40 - 130 Units/L ALT 26 7 - 45 Units/L AST 34 10 - 45 Units/L Magnesium Collection Time: 07/05/20 6:13 PM Result Value Ref Range Magnesium 1.8 1.4 - 2.5 mg/dL Phosphorus Collection Time: 07/05/20 6:13 PM Result Value Ref Range Phosphorus, pl 3.9 2.3 - 4.5 mg/dL Lactate Collection Time: 07/05/20 6:13 PM Result Value Ref Range Lactate 1.0 0.7 - 2.0 mmol/L Erythrocyte sedimentation rate Collection Time: 07/05/20 6:13 PM Result Value Ref Range Erythrocyte sedimentation rate 100 (H) 1 - 30 mm/hr CRP (acute phase) Collection Time: 07/05/20 6:13 PM Result Value Ref Range CRP 236.6 (H) <=10.0 mg/L CBC with auto differential Collection Time: 07/05/20 6:13 PM Result Value Ref Range WBC 24.0 (H) 3.8 - 9.9 K/cumm Hgb 11.1 (L) 11.9 - 15.5 g/dL Hct 32.5 (L) 35.6 - 45.5 % Plt 420 (H) 150 - 400 K/cumm MPV 9.6 9.1 - 12.3 fL RBC 3.57 (L) 3.90 - 5.20 M/cumm MCV 91.0 81.3 - 96.4 fL MCH 31.1 27.1 - 33.3 pg MCHC 34.2 32.3 - 35.7 g/dL RDW CV 11.8 11.1 - 14.9 % RDW SD 39.4 35.7 - 48.1 fL NRBC abs 0.00 0.00 - 0.01 K/cumm Protime-INR Collection Time: 07/05/20 6:13 PM Result Value Ref Range PT 14.6 (H) 8.6 - 13.0 sec INR 1.3 (H) 0.8 - 1.2 D-dimer, quantitative Collection Time: 07/05/20 6:13 PM Result Value Ref Range D-Dimer 1,324 (H) <=499 ng/mL FEU Differential, auto Collection Time: 07/05/20 6:13 PM Result Value Ref Range Neutrophil abs 19.3 (H) 1.7 - 6.5 K/cumm Imm gran abs 1.6 (H) 0.0 - 0.1 K/cumm Lymphocyte abs 1.5 0.8 - 3.3 K/cumm Monocyte abs 1.4 (H) 0.2 - 0.8 K/cumm Eosinophil abs 0.2 0.0 - 0.5 K/cumm Basophil abs 0.1 0.0 - 0.1 K/cumm Neutrophil pct 80.3 % Imm gran pct 6.5 % Lymphocyte pct 6.2 % Monocyte pct 5.9 % Eosinophil pct 0.7 % Basophil pct 0.4 % Radiology Review: Imaging review: Xr Outside Reference Result Date: 07/05/2020 These images are for Reference purposes only and have not been reviewed by [facility] Radiology. There will be no report generated by a [facility] Radiologist. Clinical Images: None Procedure: No procedure was performed or indicated at this time Assessment: Celestina Ansari is a 69 y.o. female: Plan: - On [facility] Medicine team - Plan: Operative management - Pain Control - Elevate injured extremity to reduce swelling and aid in pain reduction - Weight bearing: NWB LLE - Keep dressings clean/dry/intact - Antibiotics: hold abx at this time as the paitent is stable, will plan to start post op - DVT ppx: Please hold all chemical anticoagulation unless otherwise instructed, SCDs only - Diet: NPO until further notice - Further imaging: none - Laboratory workup: CBC, BMP, PT/INR, PTT, UA, T&S, Cross for 2 Units, EKG, CXR - F/u BCx, UCx - Discussed w/ o/n IPAP - Will discuss with Ortho Trauma Team. Thank you for the consult. - Please call ortho team if patient develops any concerning changes to their exam ?? During normal business hours - If you know the resident's name on the appropriate orthopaedic surgery team, please use [email or web address] to page resident directly. ?? If you have questions overnight or can't reach the appropriate resident, please call the Orthopaedic Surgery Consult Pager [phone] to have your questions answered or be directed to the correct Orthopaedic Surgery resident. This patient was evaluated within 30 minutes of consultation. Leroy Reddy MD Orthopaedic Surgery PGY-2 [facility] Cosigned by Ethel Amaro MD at 07/06/2020 4:45 PM BODY COVERER COVERER COVERER COVERER * Ethel Amaro MD - 07/06/2020 4:48 PM CST I have reviewed the H&P, examined the patient, and endorse the findings as written. Plan of Care : Based on the above findings, I consider Celestina Ansari to be an acceptable risk for : Procedure(s): REMOVAL HARDWARE - TIBIA/FIBULA IRRIGATION AND DEBRIDEMENT - TIBIA COVERER Source Note - Leroy Reddy MD - 07/05/2020 9:08 PM BODY COVERER Orthopaedic Surgery Trauma Consult July 05, 2020 9:10 PM Reason for Consult: L T3 open periprosthetic tib/fib shaft fx periprosthetic infection Requesting Provider: No ref. provider found Consulting Provider: Resident - Maureen/Attending - Sondra Patient (home) Insurance: Payor: [employer] MEDICARE / Plan: [facility] / Product Type: *No Product type* / Note: This is the primary coverage, but no account was found for this location or the patient's primarylocation. HPI: Celestina Ansari is a69y F p/w L T3 open periprosthetic tib/fib shaft fx periprosthetic infection s/p 2 weeks worsening erythema, 2d purulent drainage. Repeat I&D, revision ORIF w/ [facility] (06/30/19),last seen 05/13. Completed PO Clinda 7d w/o improvement, +f/c. Not on anticoag. Exam: AFVSS 2x2cm anterior, 5mm ant- medial proximal wound surrounding erythema, expressible purulent dc, probes to bone. NVI at baseline. PMH: seizures, bipolar, HTN, sick sinus syndrome, COPD (4L baseline). SH: WC bound in SNF since surg. Pain: -Location: site of injury -Onset: immediate -Duration: hours -Severity: 6-03/04 -Quality: sharp, stabbing -Alleviating Factors: rest, pain medications -Exacerbating Factors: movement, weightbearing Past Medical History: Diagnosis Date ??? Asthma ??? COPD (chronic obstructive pulmonary disease) ([facility]) ??? Heart murmur ??? Hyperlipidemia [...] Right 08/2009 ??? TOE FUSION Left 08/1994 Prior to Admission medications Medication Sig Start Date End Date Taking? Authorizing Provider Aerochamber Plus Flow-Vu spacer 12/01/19 Lucille Jnuior MD albuterol HFA (PROVENTIL HFA,VENTOLIN HFA,PROAIR HFA) 90 mcg/actuation inhaler Inhale 2 puffs every4 (four) hours as needed for shortness of breath. Indications: Asthma Attack Lucille Junior MD ALPRAZolam (XANAX) 0.25 mg tablet 04/02/20 Lucille Junior MD amLODIPine (NORVASC) 10 mg tablet Take 10 mg by mouth daily. Indications: high blood pressure Lucille Junior MD atorvastatin (LIPITOR) 10 mg tablet Take 1 tablet (10 mg total) by mouth nightly 07/04/19 Leroy Reddy MD baclofen (LIORESAL) 5 mg tablet Take 0.5 tablets (2.5 mg total) by mouth 3 (three) times a day withmeals 07/04/19 Leroy Reddy MD busPIRone (BUSPAR) 5 mg tablet 01/07/20 Lucille Junior MD cholecalciferol (cholecalciferol) 400 unit capsule Take 400 Units by mouth daily. Indications: Vitamin D deficiency Lucille Junior MD docusate sodium (COLACE) 100 mg capsule Take 100 mg by mouth daily. Indications: constipation Lucille Junior MD enoxaparin (LOVENOX) 40 mg/0.4 mL syringe 03/29/20 Lucille Junior MD famciclovir (FAMVIR) 250 mg tablet Take 250 mg by mouth 2 (two) times a day. Indications: Other (complete free text reason below), herpes Lucille Junior MD fluticasone propionate (FLONASE) 50 mcg/actuation nasal spray Administer 2 sprays into each nostrildaily 12/18/17 Lucille Junior MD fluticasone propionate (FLOVENT HFA) 110 mcg/actuation inhaler Inhale 2 puffs daily. Indications: Controller Medication for Asthma Lucille Junior MD furosemide (LASIX) 40 mg tablet Take 40 mg by mouth 2 (two) times a day. Indications: visible waterretention Lucille Junior MD gabapentin (NEURONTIN) 400 mg capsule Take 1 capsule (400 mg total) by mouth every 8 (eight) hours 07/04/19 Leroy Reddy MD ipratropium-albuteroL (DUO-NEB) 0.5-2.5 mg/3 mL nebulizer solution 12/20/19 Lucille Junior MD lidocaine (LIDODERM) 5 % Place 1 patch on the skin daily 06/14/19 Lucille Junior MD LORazepam (ATIVAN) 0.5 mg tablet 05/04/20 Lucille Junior MD metoprolol (LOPRESSOR) 25 mg tablet Take 1 tablet (25 mg total) by mouth every 6 (six) hours 07/04/19 Leroy Reddy MD Nyamyc powder 03/01/20 Lucille Junior MD olmesartan (BENICAR) 40 mg tablet Take 40 mg by mouth daily. Indications: high blood pressure Lucille Junior MD ondansetron (ZOFRAN) 4 mg tablet 12/30/19 Lucille Junior MD oxyCODONE (ROXICODONE) 10 mg tablet Take 1 tablet (10 mg total) by mouth every 4 (four) hours as needed for pain 07/06/19 Piedad Cardenas MD oxyCODONE-acetaminophen (PERCOCET) 5-325 mg per tablet 01/07/20 Lucille Junior MD pantoprazole DR (PROTONIX) 40 mg EC tablet Take 40 mg by mouth daily. Indications: Stress Ulcer Prophylaxis Lucille Junior MD primidone (MYSOLINE) 50 mg tablet 05/05/20 Lucille Junior MD spironolactone (ALDACTONE) 25 mg tablet Take 1 tablet (25 mg total) by mouth daily 03/06/20 03/06/21 Vinod Deshpande MD vitamin E (AQUASOL E) 400 unit capsule Take 800 Units by mouth daily. Indications: deficiency of vitamin E Lucille Junior MD cephalexin (KEFLEX) 500 mg capsule 04/24/20 07/05/20 Lucille Junior MD doxycycline 100 mg tablet 05/01/20 07/05/20 Lucille Junior MD Allergies Allergen Reactions ??? Fish Containing Products Anaphylaxis ??? Iodine Unknown ??? Latex Unknown ??? Dunbar-3 Fatty Acids Unknown ??? Other Unknown seafood ??? Sulfa (Sulfonamide Antibiotics) Unknown ??? Valium [Diazepam] Unknown Social History Tobacco Use ??? Smoking status: Never Smoker ??? Smokeless tobacco: Never Used ??? Tobacco comment: Patient does not smoke Substance Use Topics ??? Alcohol use: Not Currently Family History Problem Relation Age of Onset ??? Heart disease Mother ??? Diabetes Mother ??? Emphysema Father ??? Diabetes Father ??? Diabetes Brother Review of Systems: Review of systems per HPI and otherwise all other systems are negative. Objective Vitals: 24hr Min/Max: Temp Min: 36.9 ??C (98.4 ??F) Max: 36.9 ??C (98.4 ??F) Pulse Min: 90 Max: 96 BP Min: 133/62 Max: 133/62 Resp Min: 20 Max: 20 SpO2 Min: 100 % Max: 100 % Most Recent: Vitals: 07/05/20 1533 07/05/20199907/05/20 2040 BP: 133/62 133/62 BP Location: Right arm Right arm Pulse: 96 90 92 Resp: 20 20 Temp: 36.9 ??C (98.4 ??F) 36.9 ??C (98.4 ??F) TempSrc: Oral Oral SpO2: 100% 100% Weight: 87.5 kg (192 lb 12.8 oz) Height: 157.5 cm (5' 2 ) Physical Exam: General: NAD Neurological: A&Ox3 Respiratory: NLB Cardiovascular: regular rhythm Musculoskeletal: -Pelvis No obvious deformity No blood at urethral meatus, perineal lacerations, or ecchymoses. - leg length discrepancy. No instability with gentle iliac crest compression. LYNNE deferred -Right Lower Extremity Skin: Skin grossly intact Appearance: No Obvious deformity -ecchymosis and swelling Palpation: NonTTP on femur, tibia, fibula, and foot ROM: Painless pROM of hip/knee/ankle Motor: +IP/Quads/Hamstrings/TA/EHL/FHL/GS Sensory: SILT sp/dp/t/francois/sa Vascular: toes WWP, and BCR<2sec -Left Lower Extremity Skin: 2x2cm anterior, 5mm ant-medial proximal wound surrounding erythema, expressible purulent dc, probes to bone. + swelling Palpation: Appropriate tenderness to palpation over proximal tibia/ calf ROM: Tibia pain w/ ROM knee, no hip/ankle pain Motor: +IP/Quads/Hamstrings/TA/GS Sensory: SILT sp/dp/t/francois/sa, neuropathic baseline Vascular: toes WWP, and BCR<2sec Lab/Radiology/Diagnostic Review: Laboratory review: Recent Results (from the past 24 hour(s)) Basic metabolic panel Collection Time: 07/05/20 6:13 PM Result Value Ref Range Sodium 126 (L) 135 - 145 mmol/L Potassium, pl 4.3 3.3 - 4.9 mmol/L Chloride 90 (L) 97 - 110 mmol/L CO2 29 22 - 32 mmol/L Anion gap 7 2 - 15 mmol/L BUN 16 8 - 25 mg/dL Creatinine 1.02 0.60 - 1.10 mg/dL Glucose 101 70 - 199 mg/dL Calcium 9.2 8.5 - 10.3 mg/dL Hepatic function panel Collection Time: 07/05/20 6:13 PM Result Value Ref Range Bilirubin, total 0.3 0.1 - 1.2 mg/dL Bilirubin, direct <0.2 0.1 - 0.3 mg/dL Protein, pl 7.4 6.5 - 8.5 g/dL Albumin 3.4 (L) 3.5 - 5.0 g/dL Alk phos 199 (H) 40 - 130 Units/L ALT 26 7 - 45 Units/L AST 34 10 - 45 Units/L Magnesium Collection Time: 07/05/20 6:13 PM Result Value Ref Range Magnesium 1.8 1.4 - 2.5 mg/dL Phosphorus Collection Time: 07/05/20 6:13 PM Result Value Ref Range Phosphorus, pl 3.9 2.3 - 4.5 mg/dL Lactate Collection Time: 07/05/20 6:13 PM Result Value Ref Range Lactate 1.0 0.7 - 2.0 mmol/L Erythrocyte sedimentation rate Collection Time: 07/05/20 6:13 PM Result Value Ref Range Erythrocyte sedimentation rate 100 (H) 1 - 30 mm/hr CRP (acute phase) Collection Time: 07/05/20 6:13 PM Result Value Ref Range CRP 236.6 (H) <=10.0 mg/L CBC with auto differential Collection Time: 07/05/20 6:13 PM Result Value Ref Range WBC 24.0 (H) 3.8 - 9.9 K/cumm Hgb 11.1 (L) 11.9 - 15.5 g/dL Hct 32.5 (L) 35.6 - 45.5 % Plt 420 (H) 150 - 400 K/cumm MPV 9.6 9.1 - 12.3 fL RBC 3.57 (L) 3.90 - 5.20 M/cumm MCV 91.0 81.3 - 96.4 fL MCH 31.1 27.1 - 33.3 pg MCHC 34.2 32.3 - 35.7 g/dL RDW CV 11.8 11.1 - 14.9 % RDW SD 39.4 35.7 - 48.1 fL NRBC abs 0.00 0.00 - 0.01 K/cumm Protime-INR Collection Time: 07/05/20 6:13 PM Result Value Ref Range PT 14.6 (H) 8.6 - 13.0 sec INR 1.3 (H) 0.8 - 1.2 D-dimer, quantitative Collection Time: 07/05/20 6:13 PM Result Value Ref Range D-Dimer 1,324 (H) <=499 ng/mL FEU Differential, auto Collection Time: 07/05/20 6:13 PM Result Value Ref Range Neutrophil abs 19.3 (H) 1.7 - 6.5 K/cumm Imm gran abs 1.6 (H) 0.0 - 0.1 K/cumm Lymphocyte abs 1.5 0.8 - 3.3 K/cumm Monocyte abs 1.4 (H) 0.2 - 0.8 K/cumm Eosinophil abs 0.2 0.0 - 0.5 K/cumm Basophil abs 0.1 0.0 - 0.1 K/cumm Neutrophil pct 80.3 % Imm gran pct 6.5 % Lymphocyte pct 6.2 % Monocyte pct 5.9 % Eosinophil pct 0.7 % Basophil pct 0.4 % Radiology Review: Imaging review: Xr Outside Reference Result Date: 07/05/2020 These images are for Reference purposes only and have not been reviewed by [facility] Radiology. There will be no report generated by a [facility] Radiologist. Clinical Images: None Procedure: No procedure was performed or indicated at this time Assessment: Celestina Ansari is a 69 y.o. female: Plan: - On [facility] Medicine team - Plan: Operative management - Pain Control - Elevate injured extremity to reduce swelling and aid in pain reduction - Weight bearing: NWB LLE - Keep dressings clean/dry/intact - Antibiotics: hold abx at this time as the paitent is stable, will plan to start post op - DVT ppx: Please hold all chemical anticoagulation unless otherwise instructed, SCDs only - Diet: NPO until further notice - Further imaging: none - Laboratory workup: CBC, BMP, PT/INR, PTT, UA, T&S, Cross for 2 Units, EKG, CXR - F/u BCx, UCx - Discussed w/ o/n IPAP - Will discuss with Ortho Trauma Team. Thank you for the consult. - Please call ortho team if patient develops any concerning changes to their exam ?? During normal business hours - If you know the resident's name on the appropriate orthopaedic surgery team, please use [email or web address] to page resident directly. ?? If you have questions overnight or can't reach the appropriate resident, please call the Orthopaedic Surgery Consult Pager [phone] to have your questions answered or be directed to the correct Orthopaedic Surgery resident. This patient was evaluated within 30 minutes of consultation. Leroy Reddy MD Orthopaedic Surgery PGY-2 [facility] in [facility] Cosigned by Ethel Amaro MD at 07/06/2020 4:45 PM BODY COVERER COVERER COVERER COVERER * Vianney Dia MD - 07/05/2020 6:03 PM CST History and Physical Division of Hospital Medicine Name: Celestina Ansari Today: July 05, 2020 : 1950 Age: 69 y.o. female Subjective The patient is a 69 y.o. female with chief complaint of L leg wound, COVID. HPI: Celestina Ansari is a 69 y.o. female with h/o traumatic open periprosthetic tibia/fibula fracture s/p ORIF (06/30/2019) and right medial malleolus fracture s/p ORIF (06/2019) complicated by poor wound healing s/p multiple courses of antibiotics, paroxysmal atrial fibrillation in setting of MRSA bacteremia (08/2019), chronic respiratory failure on 4L per pt 2/2 COPD and HTN presented to OSH for worsening swelling, tenderness and erythema of L leg wound. Pt also reports findings started 2 days agoas an abscess that later burst revealing purulent discharge (present in picture she showed me). States she has had multiple infections in this same site and recently completed a course of clindamycin. Denies fevers, shills, night sweats. At OSH, pt was afebrile and hemodynamically stable. CXR read as concerning for OM. Per report, she received vancomycin x 1 and was transferred to [facility]. Also per report, pt was hyponatremic Na 123 (baseline 126-low 130s) but lab results not included in [facility] paper chart. Of note, pt recently diagnosed with COVID at SNF (per report 2 days prior to admission). Pt states she was having a cough and that at the SNF they regularly test patients. Denies fevers, chills, shortness of breath, abd pain, diarrhea, nausea, loss of smell or taste. She satting well on baseline 4LNC. I reviewed pt's Epic chart and paper chart from [facility]. Past Medical History: Diagnosis Date ??? Asthma [...] Right 08/2009 ??? TOE FUSION Left 08/1994 HOME MEDICATIONS : Aerochamber Plus Flow-Vu spacer albuterol HFA (PROVENTIL HFA,VENTOLIN HFA,PROAIR HFA) 90 mcg/actuation inhaler ALPRAZolam (XANAX) 0.25 mg tablet amLODIPine (NORVASC) 10 mg tablet atorvastatin (LIPITOR) 10 mg tablet baclofen (LIORESAL) 5 mg tablet busPIRone (BUSPAR) 5 mg tablet cholecalciferol (cholecalciferol) 400 unit capsule docusate sodium (COLACE) 100 mg capsule enoxaparin (LOVENOX) 40 mg/0.4 mL syringe famciclovir (FAMVIR) 250 mg tablet fluticasone propionate (FLONASE) 50 mcg/actuation nasal spray fluticasone propionate (FLOVENT HFA) 110 mcg/actuation inhaler furosemide (LASIX) 40 mg tablet gabapentin (NEURONTIN) 400 mg capsule ipratropium-albuteroL (DUO-NEB) 0.5-2.5 mg/3 mL nebulizer solution lidocaine (LIDODERM) 5 % LORazepam (ATIVAN) 0.5 mg tablet metoprolol (LOPRESSOR) 25 mg tablet Nyamyc powder olmesartan (BENICAR) 40 mg tablet ondansetron (ZOFRAN) 4 mg tablet oxyCODONE (ROXICODONE) 10 mg tablet oxyCODONE-acetaminophen (PERCOCET) 5-325 mg per tablet pantoprazole DR (PROTONIX) 40 mg EC tablet primidone (MYSOLINE) 50 mg tablet spironolactone (ALDACTONE) 25 mg tablet vitamin E (AQUASOL E) 400 unit capsule cephalexin (KEFLEX) 500 mg capsule doxycycline 100 mg tablet Allergies Allergen Reactions ??? Fish Containing Products Anaphylaxis ??? Iodine Unknown ??? Latex Unknown ??? Dunbar-3 Fatty Acids Unknown ??? Other Unknown seafood ??? Sulfa (Sulfonamide Antibiotics) Unknown ??? Valium [Diazepam] Unknown Social History Tobacco Use ??? Smoking status: Never Smoker ??? Smokeless tobacco: Never Used ??? Tobacco comment: Patient does not smoke Substance Use Topics ??? Alcohol use: Not Currently Family History Problem Relation Age of Onset ??? Heart disease Mother ??? Diabetes Mother ??? Emphysema Father ??? Diabetes Father ??? Diabetes Brother Family History reviewed and non-contributory. Review of Systems All other systems were reviewed and are negative except for L leg tenderness, erythema and cough Objective Vitals: 24hr Min/Max: Temp Min: 36.9 ??C (98.4 ??F) Max: 36.9 ??C (98.4 ??F) Pulse Min: 96 Max: 96 BP Min: 133/62 Max: 133/62 Resp Min: 20 Max: 20 SpO2 Min: 100 % Max: 100 % Most Recent Vitals: Vitals: 07/05/20 1533 BP: 133/62 Pulse: 96 Resp: 20 Temp: 36.9 ??C (98.4 ??F) SpO2: 100% No intake or output data in the 24 hours ending 07/05/20 1802 Physical exam: General: In no acute distress. Well-nourished and well-developed. Head: Normocephalic, atraumatic. Eyes: Sclera nonicteric. Pupils equal/round/reactive to light. Extraocular eye movements intact. ENT: No nasal discharge. Moist mucous membranes. Oropharynx nonerythematous, without exudates. Cardiac: Normal rate, regular rhythm. Pulmonary: No respiratory distress on 4L. Clear to auscultation bilaterally. Abdomen: Soft, nondistended, nontender. Extremities: No edema. Warm and well perfused. 2+ distal pulses. Neurologic: Alert and oriented to person/place/time. . Psychiatric: Normal mood and affect, pleasant and conversant. Dermatologic: Flat lesion in proximal anterior left leg with minimal serosanguinous discharge. No bone appreciated. Erythematous and leg tender to palpation. Lab/Diagnostic Review: No results found for this or any previous visit (from the past 24 hour(s)). I have reviewed the laboratory results. Imaging Results: XR Ankle Right 3 or More Views Narrative: EXAMINATION: XR TIBIA FIBULA LEFT 2 VIEWS, XR ANKLE RIGHT 3 OR MORE VIEWS HISTORY: Left tibia fracture FINDINGS: 2 views of the left tibia and fibula and 3 nonweightbearing views of the right ankle are submitted for interpretation with comparison made to 02/01/2020. There is a healing periprosthetic proximal left tibia fracture with apex medial angulation, unchanged. This fracture is fixated with medial plate and screws, which are intact. Left knee arthroplasty is partially visualized. There is a fixated healed left medial malleolus and distal left fibula fracture. There is a healing mildly displaced and angulated proximal left fibular shaft fracture. There is a reduced and internally fixated healed right medial malleolus fracture. There is heterotopic ossification at the tip of the right fibula from prior sprain. There is soft tissue swelling about the right ankle, unchanged. No acute fracture. Impression: 1. Healing left proximal tibia periprosthetic fracture with unchanged medial apex angulation. 2. Healing mildly displaced and angulated proximal left fibula fracture. 3. Healed right medial malleolus fracture. Electronically signed by: Ramez Bhandari M.D. XR Tibia Fibula Left 2 Views Narrative: EXAMINATION: XR TIBIA FIBULA LEFT 2 VIEWS, XR ANKLE RIGHT 3 OR MORE VIEWS HISTORY: Left tibia fracture FINDINGS: 2 views of the left tibia and fibula and 3 nonweightbearing views of the right ankle are submitted for interpretation with comparison made to 02/01/2020. There is a healing periprosthetic proximal left tibia fracture with apex medial angulation, unchanged. This fracture is fixated with medial plate and screws, which are intact. Left knee arthroplasty is partially visualized. There is a fixated healed left medial malleolus and distal left fibula fracture. There is a healing mildly displaced and angulated proximal left fibular shaft fracture. There is a reduced and internally fixated healed right medial malleolus fracture. There is heterotopic ossification at the tip of the right fibula from prior sprain. There is soft tissue swelling about the right ankle, unchanged. No acute fracture. Impression: 1. Healing left proximal tibia periprosthetic fracture with unchanged medial apex angulation. 2. Healing mildly displaced and angulated proximal left fibula fracture. 3. Healed right medial malleolus fracture. Electronically signed by: Ramez Bhandari M.D. Assessment/Plan * Left leg wound Assessment & Plan - History of open periprosthetic tibia/fibula fracture [...] threshold to start antibiotics. - Consult ortho COVID-19 Assessment & Plan - Per report, pt was tested for COVID at SNF 2 days prior to admission (would be on 07/03). States residents get regularly tested for COVID and only symptoms was cough. - On baseline home 4L O2 - Will defer treatment at this point as pt asymptomatic and on baseline O2 - Telemetry and continuous SpO2 - COVID isolation per hospital protocol Closed displaced bimalleolar fracture of right lower leg Assessment & Plan - As elsewhere Chronic respiratory failure ([facility]) Assessment & Plan - Per pt 2/2 COPD. No sings of acute exacerbation. - Continue home flonase - Continue home albuterol prn - On baseline 4L O2 Open displaced comminuted fracture of shaft of left tibia, type IIIA, IIIB, or IIIC Assessment & Plan - L tibia and R ankle fractures s/p BRENNA in 06/2020 - Complicated by poor healing and multiple infections of L anterior leg wound - Pt of Dr. Shoemaker Moderate essential hypertension Assessment & Plan - Follows with cardiology - Continue home amlodipine, metoprolol, lasix, spironolactone - Switch olmesartan to losartan as not on formulary Code Status: Full Code Diet: Adult Diet Restricted; 2 GM Sodium DVT Prophylaxis: lovenox Please call [phone] with any questions or concerns from 7 am to 7pm. Call the cross cover phone after hours. Vianney Caballero MD 07/05/2020 6:02 PM COVERER documented in this encounter Procedure Notes * Mary Ann Enamorado RN - 07/07/2020 5:46 PM CST Vascular Access Nurse: Procedure Note Summary of treatment provided to patient today is as follows : . Bedside Procedure Time out/Checklist (last 4 hours) Pre-Op Checklist Row Name 07/07/20 1400 Patient/Chart Verification Arm Bands On ID;Allergies - User Garcia (r) = Recorded By, (t) = Taken By, (c) = Cosigned By Initials Name Sung Real RN Vascular Access Documentation (last 4 hours) [facility] Additional Procedures Row Name 07/07/20 1744 07/07/20 1410 Procedures Line Type Peripheral -AP -- Patient Response Tolerated (no change in status) -AP -- Peripheral IV 07/05/20 22 G Right Forearm IV Properties Placement Date: 07/05/20 -AT Placement Time: 1545 -AT Type: Angiocath -AT Size (Gauge): 22 G -AT Location Orientation: Right -AT Location: Forearm -AT Local Anesthetic: None -AT Technique: Anatomical landmarks -AT Inserted by: Trinity Crabtree RN -AT Insertion attempts: 1 -AT Patient Tolerance: Tolerated well -AT Site Assessment -- Clean and dry - Line Status Single -- Infusing -JW Dressing Type -- Transparent - Dressing Status -- Clean, dry, intact -JW Peripheral IV 07/07/20 22 G Right Antecubital;Forearm IV Properties Placement Date: 07/07/20 -AP Placement Time: 1745 -AP Type: Angiocath -AP Size (Gauge): 22 G -AP Location Orientation: Right -AP Location: Antecubital;Forearm -AP Site Prep: Chlorhexidine -AP Comfort Measures: Position of comfort -AP Local Anesthetic: None -AP Technique: Anatomical landmarks -AP Inserted by: Marry Orr RN -AP Insertion attempts: 2 -AP Patient Tolerance: Tolerated well -AP Line Status Single Blood return noted -AP -- Dressing Type Transparent -AP -- Dressing Status Clean, dry, intact -AP -- Dressing Change Due 07/14/20 -AP -- User Garcia (r) = Recorded By, (t) = Taken By, (c) = Cosigned By Initials Name AT [facility], DARCI Shook Amy Marie, RN JW Wright, Jacqualine Defaye, RN Plan: Follow up: Mary Ann Enamorado RN COVERER documented in this encounter Consult Notes * Obed Poole Jr., MD - 07/10/2020 8:16 AM CSTAssociated Order(s): CONSULT TO PM&R PHYSICIAN Patient Name: CELESTINA ANSARI Medical Record Number (MRN): [id number] Date of (): 1950 Encounter Date: 07/05/2020 Date of Service: 07/10/20 Physical Medicine and Rehabilitation Consultation Requesting Service: Hospitalists Requesting Attending: Juan Reason for Consultation: PM&R Recommendations Date of Consultation: 07/10/2020 Chief Complaint Andi ALARCON on 07/08, came from SNF (where she was found to be COVID + 06/21) HPI The following history was obtained from the available medical record. Hospital Course: Left lower extremity infection History of open periprosthetic tibia/fibula fracture s/p [...] surgical pathology results. - Pain management. - PT/OT consults. - NWB left lower extremity. - PM&R consult. - Highway Patrol Pilot to place stump coat maker / ampushield on POD2-3. - ID and Ortho following. ?? COVID-19 - Patient tested positive for COVID-19 on 06/21/20 at her residential ([facility] in [place], [place]). - She reports her only symptom [...] therapies to date. - As patient is 20 days from positive test with resolution of symptoms, she is now considered COVID-19 recovered and removed from COVID-19 isolation precautions. Subjective: Per chart review, pain under control No outpatient medications have been marked as taking for the 07/05/20 encounter (Hospital Encounter). Allergies Allergen Reactions ??? Fish Containing Products Anaphylaxis ??? Iodine Unknown ??? Latex Unknown ??? Dunbar-3 Fatty Acids Unknown ??? Other Unknown seafood ??? Sulfa (Sulfonamide Antibiotics) Unknown ??? Valium [Diazepam] Unknown Patient Active Problem List Diagnosis ??? Bipolar [...] Diabetes Father ??? Diabetes Brother Social History Socioeconomic History ??? Marital status: Legally Spouse name: Not on file ??? Number of children: Not on file ??? Years of education: Not on file ??? Highest education level: Not on file Occupational History ??? Not on file Social Needs ??? Financial resource strain: Not on file ??? Food insecurity Worry: Never true Inability: Never true ??? Transportation needs Medical: Yes Non-medical: Yes Tobacco Use ??? Smoking status: Never Smoker ??? Smokeless tobacco: Never Used ??? Tobacco comment: Patient does not smoke Substance and Sexual Activity ??? Alcohol use: Not Currently ??? Drug use: Never ??? Sexual activity: Not on file Lifestyle ??? Physical activity Days per week: Not on file Minutes per session: Not on file ??? Stress: Not on file Relationships ??? Social connections Talks on phone: Not on file Gets together: Not on file Attends scientologist service: Not on file Active member of club or organization: Not on file Attends meetings of clubs or organizations: Not on file Relationship status: Not on file ??? Intimate partner violence Fear of current or ex partner: Not on file Emotionally abused: Not on file Physically abused: Not on file Forced sexual activity: Not on file Other Topics Concern ??? Not on file Social History Narrative ??? Not on file Social History: Tobacco: denies Alcohol: denies Illicit Drugs: denies Living Situation: -Type of Dwelling: SNF Pre-hospitalization Function atient has been at a SNF for the past year using manual w/c for all mobility. Reports she was IND with transfers OOB to w/c, toilet, etc. ADLs: independent IADLS: dependent on SNF staff Current Functional Status Current Therapy Evaluations: T 07/09: LB Dressing: max a Toileting: max a Toilet Transfer (BSC, to chair): max ax2 Supine to Sit: max ax2 Sit to Stand: max ax2 Functional Mobility: NT SBT/MoCA Score: wnl PT 07/09: Sup<>sit: max A with HOB elevated 30 degrees Sit<>stand: max A x2 from EOB x2 trials Txfer: max A x2 bed to chair Pt very self-limiting and very particular. She responds well to strict commands Recommendation/Plan PT Recommendation/Plan: Group Home Facility PT Recommendation/Plan Comments: back to facility PT Frequency: Daily(6-7x/week) Treatment/Interventions: Balance Training;Bed mobility;Endurance training;Equipment eval/education;Functional activity;Functional transfer training;Gait training;Neuromuscular re-education;Parent/caregiver training and education;Range of motion;Stair training;Strengthening;Therapeutic activity;Therapeutic exercise;Transfer training PT - Next Appointment: 07/10/20 PT Evaluation Complete: Yes MOCA: Review of Systems 14 point ROS negative except for as mentioned in HPI Vital Signs Vitals: 07/09/20 2303 07/10/20 0615 07/10/20 0700 07/10/20 0807 BP: 147/60 169/70 147/71 BP Location: Left arm Left arm Left arm Patient Position: Lying Lying Lying Pulse: 100 106 90 91 Resp: 20 18 Temp: 99.7 ??F (37.6 ??C) 98.6 ??F (37 ??C) TempSrc: Oral Oral SpO2: 100% 100% 100% Weight: Height: Physical Exam See attending attestation Assessment 69 yo F with PMH of porphyria, HTN, GERD, bipolar and seizure disorder, sick sinus syndrome, COPD on 4L at baseline, recent COVID-19 (+), and complex L-tibia fx s/p ORIF and R-ankle fx s/p ORIF (bothon 06/30) c/b poor wound healing 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 Came from SNF (where she was COVID + on 06/21).Ani is aware of patient and planning to place coat maker/ampushield soon. Plan # Medical Plan: Per primary team. # Functional Impairments: -Recommend sitting up out of bed for at least 3 hours at a time, BID. Patient should have the physical endurance and arousal level to tolerate this level of activity in order to be considered for acute rehabilitation. # Pain: -Continue to monitor and address accordingly as pain may limit ability to participate with therapies. -Use minimum amount of narcotics to achieve effective pain relief. -Please consider use of modalities (ie. Ice, heat), and/or topical medications (ie. Lidocaine cream/aspercreme) to achieve pain relief. # Sleep: -Continue to monitor the patient???s sleep wake cycle (ie. sleep log if possible) and ensure they are receiving adequate sleep as this is important for recovery and for rehabilitation efforts. -Use appropriate diurnal cues (ie. Lighting, bed positioning, elimination of electronic devices) and minimize disruptions during sleeping hours as much as possible. # Agitation/Motor Restlessness: -Continue to provide low-stimulation environment (ie. limit number of visitors, keep room quiet as much as possible) -Please try to avoid haldol and benzodiazepines if possible # Bowel/Bladder: -Please ensure adequate bowel movements, particularly if patient is using an appreciable amount of narcotic pain medications. -Please consider obtaining PVRs to assess for urinary retention # Skin Care/Hygiene: -Skin breakdown precautions due to prolonged hospitalization/significant amount of time in bed. -Recommend pressure relief when out of bed, with patient education to perform pressure relief every30 minutes. -Recommend turning patient while in bed every 2 hours to prevent development of pressure sores/ulcers. -Recommend adequate nutritional intake to provide for adequate healing. # FEN/GI: -Please ensure adequate nutrition and consider nutrition consult as indicated # DVT PPX: -Per primary team. # DISPOSITION RECOMMENDATIONS: Recommend placement at SNF where patient was living prior to this admission, as she has good rapport with therapy there and would like to return to the same SNF. She isnot interested in acute inpatient rehabilitation at this time and states that she is not interestedin pursuing a prosthetic limb for her L AKA at this time. -General Therapy/Rehabilitation-Related Recommendations: -Recommend patient be sitting upright 3 hours BID, but with adequate pressure relief -Continue to have patient evaluated by PT, OT, and TESTER EQUIPMENT Thank you for this consult and for your consideration of the above recommendations. For questions or concerns, please call the PM&R Consul service at . Obed Poole MD Resident Physician, PGY-3 Physical Medicine & Rehabilitation Division of Neurorehabilitation, Department of Neurology [facility] in [place] Cosigned by Roxanne Spring MD at 07/10/2020 3:48 PM BODY COVERER COVERER COVERER Associated attestation - Roxanne Spring MD - 07/10/2020 3:48 PM BODY COVERER I have seen and examined the patient on 07/10/20. I agree with the findings and plan of care as discussed with and documented by Dr. Obed Poole, PM&R Consult Resident. Ms. Celestina Ansari is a 69 y.o. 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 Prior to this, she had been residing at a fpc facility. She reported that she had been ableto transfer herself in and out of the bed and get to and from the bathroom at most recent baseline. On exam today, she is awake, alert, oriented x4, lying comfortably in bed in no acute distress. Sheis breathing comfortably on room air. She has functional strength in bilateral upper extremities against gravity. Left residual limb was recently dressed and she was wearing a coat maker. She is currently requiring significant assist with bedside therapies, specifically max assist of 2 for transfers and sit to stand. We discussed rehabilitation options and she indicated that she wouldnot be able to tolerate the intensity of acute inpatient rehabilitation. She prefers to return to her SNF where she knows the staff and has had rehabilitation therapies there before. We discussed importance of maintaining proper wound care and protecting the limb. [employer] is to deliver limb protector in the next day or so. The patient indicated that she is not interested in receiving a prosthetic limb at this point. I instructed that she should remain in contact with her prosthetists through [employer] and if that changes in the future they would be able to connect her with appropriate resources. When medically stable, she would be appropriate to return to SNF with PT and OT to focus on independence at a wheelchair level. Thank you for the opportunity to participate in the care of this patient and for your considerationof the above recommendations. Please contact the PM&R Consult service at [phone] if you have any questions or if the patient's clinical condition changes. Roxanne Spring MD Carton Forming Machine Operator, PM&R Division of Neurorehabilitation, Department of Neurology [facility] in [place] * Og Cintron MD - 07/06/2020 9:53 AM CSTAssociated Order(s): CONSULT TO BONE AND JOINT INFECTIOUS DISEASE Infectious Disease Initial Consult Note Infectious Disease Team: Bone and Joint Contact Information: Please see [facility] Treatment Team listing for up-to-date contact information. Requesting Physician: Vianney Dia MD Reason for Consult: Diagnostic and treatment recommendations, as well as assistance with follow up care. Subjective Chief Complaint: LLE HW infection and c/f OM HPI: The patient is a 69 y.o. female w/PMH of porphyria (sulfa drugs contraindicated), HTN, GERD, bipolar and seizure disorder, sick sinus syndrome, COPD on 4L at baseline, recent COVID-19 (+), and complex L-tibia fx s/p ORIF and R-ankle fx s/p ORIF (both on 06/30) c/b poor wound healing s/p multiple abx courses (cephalexin, clinda); now admitted for LLE HW infection and c/f OM (exam probes to bone) Pt had a L-type 3A open tibia shaft fx below a total knee stem and a R-tibial plafond fracture after sustaining a fall in Jun 2019. Initially underwent urgent L-tibia I&D + temporary locking plate + VAC in 06/28/19. On 06/30, underwent I&D and ORIF of L-tibial shaft fx and R-medial malleolus fx + complex layered wound closure of traumatic laceration measuring 40 cm. Of note, she had MRSA BSI in Aug 2019. Last seen by Ortho (05/07/20) and the wound looked ok at the time, but she had just received a course of cephalexin for wound erythema/drainage with adequate response. In the past ~2 weeks she has noticed worsening LLE erythema, edema, pain and in the last two days purulent drainage from her chronic wound; which prompted her to go to the OSH ([facility]) where one dose of vancomycin was given prior to transfer. Since her surgery in Jun 2019, the patient has been wheelchair bound and staying in a SNF where she tested (+) for COVID around Thanksgiving. At the time she had fever for a couple of days but no other symptoms. Last abx course was with clindamycin and was completed the day prior to admission. Afebrile and stable since admission. Labs are relevant for CrCL 42 ml/min, CRP 236, ESR 100. WBC 24k, PLT 420, LFTS ok. Albumin 3.4. BCX (07/05) NGTD. CT tib/fib (07/06) showed periprosthetic fx of L-prox tib&fib, mildly displaced, angulated and nonunited, w/overlying periosteal reaction c/f infection. Past Medical History: Diagnosis Date ??? Asthma ??? COPD (chronic obstructive pulmonary disease) (CMS/HCC) ??? Heart murmur ??? Hyperlipidemia ??? Hypertension ??? Shortness of breath ??? Sleep apnea Past Surgical History: Procedure Laterality Date ??? ACHILLES TENDON LENGTHENING Left 09/1991 ??? ANKLE SURGERY Left 2015 ??? APPENDECTOMY 1972 ??? BILATERAL SALPINGOOPHORECTOMY 12/1998 ??? BREAST BIOPSY Right 2000 and 2006 ??? DILATION AND CURETTAGE OF UTERUS 10/1986 ??? HYSTERECTOMY 05/1995 ??? NASAL SEPTUM SURGERY 1973 ??? ORIF TIBIA FRACTURE Left 06/28/2019 ??? REPLACEMENT TOTAL KNEE Left multiple left knee surgeries, including 3 knee replacements ??? SHOULDER SURGERY Right 08/2009 ??? TOE FUSION Left 08/1994 HOME MEDICATIONS : Aerochamber Plus Flow-Vu spacer albuterol HFA (PROVENTIL HFA,VENTOLIN HFA,PROAIR HFA) 90 mcg/actuation inhaler amLODIPine (NORVASC) 10 mg tablet atorvastatin (LIPITOR) 10 mg tablet baclofen (LIORESAL) 5 mg tablet busPIRone (BUSPAR) 5 mg tablet cholecalciferol (cholecalciferol) 400 unit capsule docusate sodium (COLACE) 100 mg capsule enoxaparin (LOVENOX) 40 mg/0.4 mL syringe famciclovir (FAMVIR) 250 mg tablet fluticasone propionate (FLONASE) 50 mcg/actuation nasal spray fluticasone propionate (FLOVENT HFA) 110 mcg/actuation inhaler furosemide (LASIX) 40 mg tablet gabapentin (NEURONTIN) 400 mg capsule ipratropium-albuteroL (DUO-NEB) 0.5-2.5 mg/3 mL nebulizer solution lidocaine (LIDODERM) 5 % LORazepam (ATIVAN) 0.5 mg tablet metoprolol (LOPRESSOR) 25 mg tablet Nyamyc powder olmesartan (BENICAR) 40 mg tablet ondansetron (ZOFRAN) 4 mg tablet oxyCODONE (ROXICODONE) 10 mg tablet oxyCODONE-acetaminophen (PERCOCET) 5-325 mg per tablet pantoprazole DR (PROTONIX) 40 mg EC tablet primidone (MYSOLINE) 50 mg tablet spironolactone (ALDACTONE) 25 mg tablet vitamin E (AQUASOL E) 400 unit capsule Current Facility-Administered Medications Ordered in Epic Medication Dose Route Frequency Provider Last Rate Last Admin ??? acetaminophen (TYLENOL) tablet 1,000 mg 1,000 mg oral Q8H Vianney Dia MD 1,000 mg at12/07/14 0903 ??? albuterol HFA (PROVENTIL HFA,VENTOLIN HFA,PROAIR HFA) 90 mcg/actuation inhaler 2 puff 2 puff inhalation Q4H PRN (RT) Vianney Dia MD ??? amLODIPine (NORVASC) tablet 10 mg 10 mg oral Daily Vianney Dia MD 10 mg at 07/06/20 09 ??? atorvastatin (LIPITOR) tablet 10 mg 10 mg oral Nightly Vianney Dia MD 10 mg at 07/05/202035 ??? [Held by Provider] baclofen (LIORESAL) tablet 2.5 mg 2.5 mg oral TID with meals Vianney Dia MD Stopped at 07/05/202137 ??? busPIRone (BUSPAR) tablet 5 mg 5 mg oral Daily Vianney Dia MD 5 mg at 07/06/20902 ??? docusate sodium (COLACE) capsule 100 mg 100 mg oral Daily Vianney Dia MD 100 mg at 07/05/202034 ??? [Held by Provider] enoxaparin (LOVENOX) syringe 40 mg 40 mg subcutaneous Daily-2099 Vianney Dia MD ??? fluticasone propionate (FLONASE) 50 mcg/actuation nasal spray 2 spray 2 spray each nostril Daily Vianney Dia MD ??? furosemide (LASIX) tablet 40 mg 40 mg oral BID Vianney Dia MD 40 mg at 07/06/20 09 ??? gabapentin (NEURONTIN) capsule 400 mg 400 mg oral Q8H Vianney Dia MD 400 mg at 07/06/20 09 ??? losartan (COZAAR) tablet 50 mg 50 mg oral Daily Vianney Dia MD 50 mg at 07/06/20 09 ??? metoprolol tartrate (LOPRESSOR) immediate release tablet 25 mg 25 mg oral Q6H KELIN Vianney Dia MD 25 mg at 07/06/20 0500 ??? ondansetron ODT (ZOFRAN-ODT) disintegrating tablet 4 mg 4 mg oral Q4H PRN Angel Crystal DO 4 mg at 07/06/20 0034 ??? oxyCODONE (ROXICODONE) tablet 5 mg 5 mg oral Q4H PRN Vianney Dia MD 5 mg at 07/06/200903 ??? pantoprazole DR (PROTONIX) extended release tablet 40 mg 40 mg oral Daily Vianney Dia MD 40 mg at 07/06/20 0903 ??? sodium chloride 0.9% flush 0.5-20 mL 0.5-20 mL intra-catheter Q8H KELIN Vianney Dia MD10 mL at 07/06/20 0500 ??? sodium chloride 0.9% flush 0.5-20 mL 0.5-20 mL intra-catheter PRN Vianney Dia MD ??? spironolactone (ALDACTONE) tablet 25 mg 25 mg oral Daily Vianney Dia MD 25 mg at 07/06/20 0902 No current Epic-ordered outpatient medications on file. Active Lines/Ports/Devices: Peripheral IV 07/05/20 22 G Right Forearm (Active) Number of days: 1 Patient Allergies: Allergies Allergen Reactions ??? Fish Containing Products Anaphylaxis ??? Iodine Unknown ??? Latex Unknown ??? Dunbar-3 Fatty Acids Unknown ??? Other Unknown seafood ??? Sulfa (Sulfonamide Antibiotics) Unknown ??? Valium [Diazepam] Unknown Social History Social History Narrative ??? Not on file reports that she has never smoked. She has never used smokeless tobacco. She reports previous alcohol use. She reports that she does not use drugs. Family history reviewed and non-contributory: No family history of primary immunodeficiencies Family History Problem Relation Age of Onset ??? Heart disease Mother ??? Diabetes Mother ??? Emphysema Father ??? Diabetes Father ??? Diabetes Brother Review of Systems: Review of Systems All other systems reviewed and are negative. Objective Vitals: 24hr Min/Max: Temp Min: 36.8 ??C (98.2 ??F) Max: 37.1 ??C (98.8 ??F) Pulse Min: 78 Max: 96 BP Min: 126/62 Max: 133/53 Resp Min: 20 Max: 20 SpO2 Min: 96 % Max: 100 % Most Recent : Vitals: 07/06/20 09 BP: 133/53 Pulse: 78 Resp: 20 Temp: 36.8 ??C (98.2 ??F) SpO2: 100% I/O last 2 completed shifts: In: - Out: 850 [Urine:850] Physical Exam: Physical Exam Vitals signs reviewed. Constitutional: General: She is not in acute distress. Appearance: She is obese. Interventions: Nasal cannula in place. HENT: Head: Normocephalic and atraumatic. Nose: Nose normal. Mouth/Throat: Pharynx: No oropharyngeal exudate. Eyes: General: No scleral icterus. Right eye: No discharge. Left eye: No discharge. Conjunctiva/sclera: Conjunctivae normal. Pupils: Pupils are equal, round, and reactive to light. Neck: Musculoskeletal: Normal range of motion and neck supple. Cardiovascular: Rate and Rhythm: Normal rate and regular rhythm. Heart sounds: Normal heart sounds. No murmur. No friction rub. No gallop. Pulmonary: Effort: Pulmonary effort is normal. No respiratory distress. Breath sounds: Normal breath sounds. No wheezing or rales. Abdominal: General: Bowel sounds are normal. There is no distension. Palpations: Abdomen is soft. There is no mass. Tenderness: There is no abdominal tenderness. There is no guarding or rebound. Comments: Surgical scar from appendectomy and hysterectomy (fibroids) w/ooforectomy (cysts) Musculoskeletal: General: No deformity. Comments: R-ankle w/siurgical scar, good ROM and no signs of infection. LLE in wrap (just changed). Decreased distal strength in her ankle (unchanged since original surgery). Lymphadenopathy: Cervical: No cervical adenopathy. Skin: General: Skin is warm. Coloration: Skin is pale. Findings: No rash. Neurological: Mental Status: She is alert and oriented to person, place, and time. Cranial Nerves: No cranial nerve deficit. Psychiatric: Thought Content: Thought content normal. Lab/Radiology/Diagnostic Review: I reviewed the laboratory result(s). Recent Labs: Microbiology: Lab Results Component Value Date MICROBIOLOGY Final Report: Negative 07/01/2019 MICROBIOLOGY Final Report: Negative 06/29/2019 CBC: Recent Labs Lab Units 07/05/20 1813 WBC K/cumm 24.0* HEMOGLOBIN g/dL 11.1* HEMATOCRIT % 32.5* PLATELETS K/cumm 420* NEUTROS PCT % 80.3 LYMPHS PCT % 6.2 MONOS PCT % 5.9 EOS PCT % 0.7 CMP: Recent Labs Lab Units 07/05/20 1813 SODIUM mmol/L 126* POTASSIUM PLASMA mmol/L 4.3 CHLORIDE mmol/L 90* CO2 mmol/L 29 ANIONGAP mmol/L 7 GLUCOSE mg/dL 101 BUN SERUM mg/dL 16 CREATININE mg/dL 1.02 CALCIUM mg/dL 9.2 ALBUMIN g/dL 3.4* ALK PHOS Units/L 199* ALT Units/L 26 AST Units/L 34 BILIRUBIN TOTAL mg/dL 0.3 ESR: Recent Labs Lab Units 07/05/20 1813 SED RATE mm/hr 100* CRP: Recent Labs Lab Units 07/05/20 181 CRP mg/L 236.6* Last UA: Recent Labs Lab Units 07/05/20 2319 COLOR U Yellow CLARITY U Cloudy* SPEC GRAV U 1.011 PH, URINE 6 PROTEIN UR QL Negative GLUCOSE URQL Negative KETONES UR Trace BLOOD UR Negative NITRITE UR Negative LEUKOCYTE ESTERASE UR 3+* Current CrCl: Estimated Creatinine Clearance: 42.3 mL/min (by C-G formula based on SCr of 1.02 mg/dL). Cr. Trend: Recent Labs Lab Units 07/05/201812 CREATININE mg/dL 1.02 Last HIV Labs (if any): HIV Ab Screen: No results found for: [id number] HIV Viral Load: No results found for: [id number] CD4 Count: No results found for: [id number] Radiology: Radiology results were reviewed. Last X-Ray Result: Results for orders placed during the hospital encounter of 07/05/20 XR Outside Reference Narrative EXAMINATION: Images For Reference Purposes Only Impression These images are for Reference purposes only and have not been reviewed by [facility]iology. There will be no report generated by a [facility] Radiologist. Last CT Result: Results for orders placed during the hospital encounter of 07/05/20 CT Tibia Fibula Left WO Contrast Narrative EXAMINATION: CT LOWER LEG CALF LEFT WO CONTRAST HISTORY: 69-year-old with left periprosthetic fracture status post open reduction internal fixation, with prosthetic infection in 2019,, status post prior irrigations and debridement. Now with worsening edema and drainage. 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 Lucencies are noted about the distal aspect of the tibial component. Additional distal lateral valvular fixation plate, medial malleolus fixation screw, are also present. Topogram notes fixation plate on the distal right medial malleolus and radiodensity along the left great toe metatarsophalangeal joint. The tibial fracture is nonunited with slightly laterally angulated, with mild displacement of a posterior fracture fragment and overlying periosteal reaction. The fibular fracture is also nonunited, with slight lateral and posterior angulation, and full shaft width posterior displacement. There is mild skin thickening overlying the anterior and medial aspect of the proximal tibia, without definite organized fluid collection several however, beam hardening artifact from adjacent hardware mildly limits evaluation. Diffuse muscle atrophy. Impression Periprosthetic fracture of the left proximal tibia and fibula, with changes of prior open reduction internal fixation. These fractures remain mildly displaced, mildly angulated, and nonunited, with overlying periosteal reaction, which can be seen in setting of infection. Dictated by: Adithya Terry M.D. The radiology attending physician has personally reviewed this study, and had reviewed and/or edited this written report and agrees with it. Electronically signed by: Lavell Lawson M.D. The following images were personally examined and the following details determined: CT with extensive tib/fib HW with non union Assessment/Plan Open displaced comminuted fracture of shaft of left tibia, type IIIA, IIIB, or IIIC Assessment & Plan 69 y.o. female w/PMH of porphyria (sulfa drugs contraindicated), HTN, GERD, bipolar and seizure disorder, sick sinus syndrome, COPD on 4L at baseline, recent COVID-19 (+), and complex L-tibia fx s/p ORIF and R-ankle fx s/p ORIF (both on 06/30) c/b poor wound healing s/p multiple abx courses (cephalexin, clinda); now admitted for LLE HW infection and c/f OM (exam probes to bone) - baseline CrCL 42 ml/min, CRP 236, ESR 100. WBC 24k, PLT 420, LFTS ok. Albumin 3.4. - BCX (07/05) NGTD. - CT tib/fib (07/06): periprosthetic fx of L-prox tib&fib, mildly displaced, angulated and nonunited, w/overlying periosteal reaction c/f infection. Recommendations - Agree with surgical debridement per Orho -appreciate deep tissue/bone cultures - Start empirical vancomycin 15 mg/Kg q24h and cefepime 1g IV q8h after surgery - monitor CBC/CMP while on IV antibiotics - anticipate a prolonged course of IV abx -->Hold PICC placement. - Thank-you for the opportunity to participate in the care of this patient. Infectious Diseases will continue to follow with you. Please contact the ID B&J Team PA at [phone] (desk) or [phone] (work cell) M-F, 7-3; or the Attending at [phone] (pager) with any questions or concerns. After hours, the ID fellow hydrogen plant operations manager can be reached at [phone]. COVID-19 Assessment & Plan - recommend getting records from SNF to establish exact date of first (+) COVID test. - pt likely has completed days of isolation. COVERER Leroy Grubbs MD - 07/05/2020 9:08 PM CSTAssociated Order(s): CONSULT TO ORTHO-TRAUMA Orthopaedic Surgery Trauma Consult July 05, 2020 9:10 PM Reason for Consult: L T3 open periprosthetic tib/fib shaft fx periprosthetic infection Requesting Provider: No ref. provider found Consulting Provider: Resident - Maureen/Attending - Sondra Patient (home) Insurance: Payor: [employer] MEDICARE / Plan: AETNA [facility] / Product Type: *No Product type* / Note: This is the primary coverage, but no account was found for this location or the patient's primarylocation. HPI: Celestina Ansari is [id number] F p/w L T3 open periprosthetic tib/fib shaft fx periprosthetic infection s/p 2 weeks worsening erythema, 2d purulent drainage. Repeat I&D, revision ORIF w/ [facility] (06/30/19),last seen 05/13. Completed PO Clinda 7d w/o improvement, +f/c. Not on anticoag. Exam: AFVSS 2x2cm anterior, 5mm ant- medial proximal wound surrounding erythema, expressible purulent dc, probes to bone. NVI at baseline. PMH: seizures, bipolar, HTN, sick sinus syndrome, COPD (4L baseline). SH: WC bound in SNF since surg. Pain: -Location: site of injury -Onset: immediate -Duration: hours -Severity: 6-810 -Quality: sharp, stabbing -Alleviating Factors: rest, pain medications -Exacerbating Factors: movement, weightbearing Past Medical History: Diagnosis Date ??? Asthma ??? COPD (chronic obstructive pulmonary disease) ([facility]) ??? Heart murmur ??? Hyperlipidemia [...] Right 08/2009 ??? TOE FUSION Left 08/1994 Prior to Admission medications Medication Sig Start Date End Date Taking? Authorizing Provider Aerochamber Plus Flow-Vu spacer 12/01/19 Lucille Junior MD albuterol HFA (PROVENTIL HFA,VENTOLIN HFA,PROAIR HFA) 90 mcg/actuation inhaler Inhale 2 puffs every4 (four) hours as needed for shortness of breath. Indications: Asthma Attack Lucille Junior MD ALPRAZolam (XANAX) 0.25 mg tablet 04/02/20 Lucille Junior MD amLODIPine (NORVASC) 10 mg tablet Take 10 mg by mouth daily. Indications: high blood pressure Lucille Junior MD atorvastatin (LIPITOR) 10 mg tablet Take 1 tablet (10 mg total) by mouth nightly 07/04/19 Leroy Reddy MD baclofen (LIORESAL) 5 mg tablet Take 0.5 tablets (2.5 mg total) by mouth 3 (three) times a day withmeals 07/04/19 Leroy Reddy MD busPIRone (BUSPAR) 5 mg tablet 01/07/20 Lucille Junior MD cholecalciferol (cholecalciferol) 400 unit capsule Take 400 Units by mouth daily. Indications: Vitamin D deficiency Lucille Junior MD docusate sodium (COLACE) 100 mg capsule Take 100 mg by mouth daily. Indications: constipation Lucille Junior MD enoxaparin (LOVENOX) 40 mg/0.4 mL syringe 03/29/20 Lucille Junior MD famciclovir (FAMVIR) 250 mg tablet Take 250 mg by mouth 2 (two) times a day. Indications: Other (complete free text reason below), herpes Lucille Juinor MD fluticasone propionate (FLONASE) 50 mcg/actuation nasal spray Administer 2 sprays into each nostrildaily 12/18/17 Lucille Junior MD fluticasone propionate (FLOVENT HFA) 110 mcg/actuation inhaler Inhale 2 puffs daily. Indications: Controller Medication for Asthma Lucille Junior MD furosemide (LASIX) 40 mg tablet Take 40 mg by mouth 2 (two) times a day. Indications: visible waterretention Lucille Junior MD gabapentin (NEURONTIN) 400 mg capsule Take 1 capsule (400 mg total) by mouth every 8 (eight) hours 07/04/19 Leroy Reddy MD ipratropium-albuteroL (DUO-NEB) 0.5-2.5 mg/3 mL nebulizer solution 12/20/19 Lucille Junior MD lidocaine (LIDODERM) 5 % Place 1 patch on the skin daily 06/14/19 Lucille Junior MD LORazepam (ATIVAN) 0.5 mg tablet 05/04/20 Lucille Junior MD metoprolol (LOPRESSOR) 25 mg tablet Take 1 tablet (25 mg total) by mouth every 6 (six) hours 07/04/19 Leroy Reddy MD Nyamyc powder 03/01/20 Lucille Junior MD olmesartan (BENICAR) 40 mg tablet Take 40 mg by mouth daily. Indications: high blood pressure Lucille Junior MD ondansetron (ZOFRAN) 4 mg tablet 12/30/19 Lucille Junior MD oxyCODONE (ROXICODONE) 10 mg tablet Take 1 tablet (10 mg total) by mouth every 4 (four) hours as needed for pain 07/06/19 Piedad Cardenas MD oxyCODONE-acetaminophen (PERCOCET) 5-325 mg per tablet 01/07/20 Lucille Junior MD pantop[address] DR (PROTONIX) 40 mg EC tablet Take 40 mg by mouth daily. Indications: Stress Ulcer Prophylaxis Lucille Junior MD primidone (MYSOLINE) 50 mg tablet 05/05/20 Lucille Junior MD spironolactone (ALDACTONE) 25 mg tablet Take 1 tablet (25 mg total) by mouth daily 03/06/20 03/06/21 Vinod Deshpande MD vitamin E (AQUASOL E) 400 unit capsule Take 800 Units by mouth daily. Indications: deficiency of vitamin E Lucille Junior MD cephalexin (KEFLEX) 500 mg capsule 04/24/20 07/05/20 Lucille Junior MD doxycycline 100 mg tablet 05/01/20 07/05/20 Lucille Junior MD Allergies Allergen Reactions ??? Fish Containing Products Anaphylaxis ??? Iodine Unknown ??? Latex Unknown ??? Dunbar-3 Fatty Acids Unknown ??? Other Unknown seafood ??? Sulfa (Sulfonamide Antibiotics) Unknown ??? Valium [Diazepam] Unknown Social History Tobacco Use ??? Smoking status: Never Smoker ??? Smokeless tobacco: Never Used ??? Tobacco comment: Patient does not smoke Substance Use Topics ??? Alcohol use: Not Currently Family History Problem Relation Age of Onset ??? Heart disease Mother ??? Diabetes Mother ??? Emphysema Father ??? Diabetes Father ??? Diabetes Brother Review of Systems: Review of systems per HPI and otherwise all other systems are negative. Objective Vitals: 24hr Min/Max: Temp Min: 36.9 ??C (98.4 ??F) Max: 36.9 ??C (98.4 ??F) Pulse Min: 90 Max: 96 BP Min: 133/62 Max: 133/62 Resp Min: 20 Max: 20 SpO2 Min: 100 % Max: 100 % Most Recent: Vitals: 07/05/20 1533 12/06/14 200007/05/202039 BP: 133/62 133/62 BP Location: Right arm Right arm Pulse: 96 90 92 Resp: Temp: 36.9 ??C (98.4 ??F) 36.9 ??C (98.4 ??F) TempSrc: Oral Oral SpO2: 100% 100% Weight: 87.5 kg (192 lb 12.8 oz) Height: 157.5 cm (5' 2 ) Physical Exam: General: NAD Neurological: A&Ox3 Respiratory: NLB Cardiovascular: regular rhythm Musculoskeletal: -Pelvis No obvious deformity No blood at urethral meatus, perineal lacerations, or ecchymoses. - leg length discrepancy. No instability with gentle iliac crest compression. LYNNE deferred -Right Lower Extremity Skin: Skin grossly intact Appearance: No Obvious deformity -ecchymosis and swelling Palpation: NonTTP on femur, tibia, fibula, and foot ROM: Painless pROM of hip/knee/ankle Motor: +IP/Quads/Hamstrings/TA/EHL/FHL/GS Sensory: SILT sp/dp/t/francois/sa Vascular: toes WWP, and BCR<2sec -Left Lower Extremity Skin: 2x2cm anterior, 5mm ant-medial proximal wound surrounding erythema, expressible purulent dc, probes to bone. + swelling Palpation: Appropriate tenderness to palpation over proximal tibia/ calf ROM: Tibia pain w/ ROM knee, no hip/ankle pain Motor: +IP/Quads/Hamstrings/TA/GS Sensory: SILT sp/dp/t/francois/sa, neuropathic baseline Vascular: toes WWP, and BCR<2sec Lab/Radiology/Diagnostic Review: Laboratory review: Recent Results (from the past 24 hour(s)) Basic metabolic panel Collection Time: 07/05/20 6:13 PM Result Value Ref Range Sodium 126 (L) 135 - 145 mmol/L Potassium, pl 4.3 3.3 - 4.9 mmol/L Chloride 90 (L) 97 - 110 mmol/L CO2 29 22 - 32 mmol/L Anion gap 7 2 - 15 mmol/L BUN 16 8 - 25 mg/dL Creatinine 1.02 0.60 - 1.10 mg/dL Glucose 101 70 - 199 mg/dL Calcium 9.2 8.5 - 10.3 mg/dL Hepatic function panel Collection Time: 07/05/20 6:13 PM Result Value Ref Range Bilirubin, total 0.3 0.1 - 1.2 mg/dL Bilirubin, direct <0.2 0.1 - 0.3 mg/dL Protein, pl 7.4 6.5 - 8.5 g/dL Albumin 3.4 (L) 3.5 - 5.0 g/dL Alk phos 199 (H) 40 - 130 Units/L ALT 26 7 - 45 Units/L AST 34 10 - 45 Units/L Magnesium Collection Time: 07/05/20 6:13 PM Result Value Ref Range Magnesium 1.8 1.4 - 2.5 mg/dL Phosphorus Collection Time: 07/05/20 6:13 PM Result Value Ref Range Phosphorus, pl 3.9 2.3 - 4.5 mg/dL Lactate Collection Time: 07/05/20 6:13 PM Result Value Ref Range Lactate 1.0 0.7 - 2.0 mmol/L Erythrocyte sedimentation rate Collection Time: 07/05/20 6:13 PM Result Value Ref Range Erythrocyte sedimentation rate 100 (H) 1 - 30 mm/hr CRP (acute phase) Collection Time: 07/05/20 6:13 PM Result Value Ref Range CRP 236.6 (H) <=10.0 mg/L CBC with auto differential Collection Time: 07/05/20 6:13 PM Result Value Ref Range WBC 24.0 (H) 3.8 - 9.9 K/cumm Hgb 11.1 (L) 11.9 - 15.5 g/dL Hct 32.5 (L) 35.6 - 45.5 % Plt 420 (H) 150 - 400 K/cumm MPV 9.6 9.1 - 12.3 fL RBC 3.57 (L) 3.90 - 5.20 M/cumm MCV 91.0 81.3 - 96.4 fL MCH 31.1 27.1 - 33.3 pg MCHC 34.2 32.3 - 35.7 g/dL RDW CV 11.8 11.1 - 14.9 % RDW SD 39.4 35.7 - 48.1 fL NRBC abs 0.00 0.00 - 0.01 K/cumm Protime-INR Collection Time: 07/05/20 6:13 PM Result Value Ref Range PT 14.6 (H) 8.6 - 13.0 sec INR 1.3 (H) 0.8 - 1.2 D-dimer, quantitative Collection Time: 07/05/20 6:13 PM Result Value Ref Range D-Dimer 1,324 (H) <=499 ng/mL FEU Differential, auto Collection Time: 07/05/20 6:13 PM Result Value Ref Range Neutrophil abs 19.3 (H) 1.7 - 6.5 K/cumm Imm gran abs 1.6 (H) 0.0 - 0.1 K/cumm Lymphocyte abs 1.5 0.8 - 3.3 K/cumm Monocyte abs 1.4 (H) 0.2 - 0.8 K/cumm Eosinophil abs 0.2 0.0 - 0.5 K/cumm Basophil abs 0.1 0.0 - 0.1 K/cumm Neutrophil pct 80.3 % Imm gran pct 6.5 % Lymphocyte pct 6.2 % Monocyte pct 5.9 % Eosinophil pct 0.7 % Basophil pct 0.4 % Radiology Review: Imaging review: Xr Outside Reference Result Date: 07/05/2020 These images are for Reference purposes only and have not been reviewed by [facility] Radiology. There will be no report generated by a [facility] Radiologist. Clinical Images: None Procedure: No procedure was performed or indicated at this time Assessment: Celestina Ansari is a 69 y.o. female: Plan: - On [facility] Medicine team - Plan: Operative management - Pain Control - Elevate injured extremity to reduce swelling and aid in pain reduction - Weight bearing: NWB LLE - Keep dressings clean/dry/intact - Antibiotics: hold abx at this time as the paitent is stable, will plan to start post op - DVT ppx: Please hold all chemical anticoagulation unless otherwise instructed, SCDs only - Diet: NPO until further notice - Further imaging: none - Laboratory workup: CBC, BMP, PT/INR, PTT, UA, T&S, Cross for 2 Units, EKG, CXR - F/u BCx, UCx - Discussed w/ o/n IPAP - Will discuss with Ortho Trauma Team. Thank you for the consult. - Please call ortho team if patient develops any concerning changes to their exam ?? During normal business hours - If you know the resident's name on the appropriate orthopaedic surgery team, please use [email or web address] to page resident directly. ?? If you have questions overnight or can't reach the appropriate resident, please call the Orthopaedic Surgery Consult Pager [phone] to have your questions answered or be directed to the correct Orthopaedic Surgery resident. This patient was evaluated within 30 minutes of consultation. Leroy Reddy MD Orthopaedic Surgery PGY-2 [facility] in [facility] Cosigned by Ethel Amaro MD at 07/06/2020 4:45 PM BODY COVERER COVERER COVERER COVERER Associated attestation - Ethel Amaro MD - 07/06/2020 4:45 PM BODY COVERER I personally saw and examined the patient as an inpatient on 07/06/2020. I have reviewed the imaging which shows nonunion proximal periprosthetic tibia fracture and presented with associated purulentwound. I have read the resident???s note and agree with the findings and plan by Dr. Reddy. Plan for I&D, removal of implants today. Will likely need second stage surgery with arthroplasty teamfor removal of TKA components. Ethel Amaro MD 07/06/2020, 4:43 PM documented in this encounter Nursing Notes * Matilde Griffin RN - 07/12/2020 12:41 PM CST Discharge Nursing Note Discharge Disposition Care Center at [facility] Discharge Transportation [facility] (Trip#: [id number]) Set for 1400 pickup Belongings Returned as charted. LDA's Removed per protocol AVS Patient sent with AVS, healthcare facility AVS, and packet. AVS discussed and signed. No questions asked. Report Called by Deena BEJARANO Actual Discharge Time 1441 COVERER COVERER * Kenzie Salazar RN - 07/12/2020 12:41 PM CST 1241 Patient was discharged to SNF.Discharge instructions given by Matilde. Care handed over to the SNF, RN. Leg stump clean, dry and intact. Due pain meds given. V/S stable. COVERER * Qi Vidal RN - 07/12/2020 12:15 AM CST Patient transferred to [facility]. I assumed care for this patient at 2345. I agree with all charting done by [facility] [place], except where noted. Patient resting comfortably in bed with no complaints. COVERER COVERER * Breanna Rodriguez RN - 07/11/2020 5:47 PM CST Patient transferred to [address] [place] [address] from [facility] in stable condition. Vital signs stable. Patient denies any chest pain, sob,or dizziness, on departure from floor[place] [id number]. COVERER * Genie Elliott RN - 07/10/2020 10:13 AM CST Assessment of patient???s baseline is established at the beginning of the shift in flowsheets. Patient reassessed per order, unexpected findings and/or deviations from baseline are captured in flowsheets. Frequent safety checks and comfort rounds provided. Orders and/or nursing care completed as indicated. Patient monitored for response to interventions and treatments as documented in flowsheets.Patient verbalized understanding and participating in care. Will continue to monitor. . Education provided includes Discharge Planning, Fall Prevention, Isolation Precautions, Pain Management and Skin Breakdown Prevention/Treatment. Patient and/or nutrition representative Verbalizes understanding. Will continue to monitor. COVERER * Genie Elliott RN - 07/09/2020 2:40 PM CST Assessment of patient???s baseline is established at the beginning of the shift in flowsheets. Patient reassessed per order, unexpected findings and/or deviations from baseline are captured in flowsheets. Frequent safety checks and comfort rounds provided. Orders and/or nursing care completed as indicated. Patient monitored for response to interventions and treatments as documented in flowsheets.Patient verbalized understanding and participating in care. Will continue to monitor. . Education provided includes Discharge Planning, Fall Prevention, Isolation Precautions, Pain Management and Skin Breakdown Prevention/Treatment. Patient and/or nutrition representative Verbalizes understanding. Will continue to monitor. COVERER * Yarely Hopkins RN - 07/08/2020 6:18 AM CST Assessment of patient???s baseline is established at the beginning of the shift in flowsheets. Patient reassessed per order, unexpected findings and/or deviations from baseline are captured in flowsheets. Frequent safety checks and comfort rounds provided. Orders and/or nursing care completed as indicated. Patient monitored for response to interventions and treatments as documented in flowsheets.Education provided includes Isolation Precautions, New Anticoagulants and other VTE Prevention: andPain Management. Patient verbalizes understanding. Will continue to monitor. COVERER documented in this encounter Miscellaneous Notes * Plan of Care - Matilde Griffin RN - 07/12/2020 1:44 PM CST Problem: Lack of Knowledge: Goal: Ability to state ways to decrease the risk of falls will improve 07/12/2020 1344 by Matilde Griffin RN Outcome: Adequate for Discharge 07/12/2020 1344 by Matilde Griffin RN Outcome: Adequate for Discharge Problem: Safety: Goal: Will remain free from falls 07/12/2020 1344 by Matilde Griffin, [facility] Outcome: Adequate for Discharge 07/12/2020 1344 by Matilde Griffin RN Outcome: Adequate for Discharge Goal: Will remain free from injury from falls 07/12/2020 1344 by Matilde Griffin RN Outcome: Adequate for Discharge 07/12/2020 1344 by Matilde Griffin RN Outcome: Adequate for Discharge Goal: Will remain free from falls and injury in home environment 07/12/2020 1344 by Matilde Griffin RN Outcome: Adequate for Discharge 07/12/2020 1344 by Matilde Griffin RN Outcome: Adequate for Discharge Problem: Lack of Knowledge: Goal: Ability to state signs and symptoms to report to health care provider will improve 07/12/2020 1344 by Matilde Griffin RN Outcome: Adequate for Discharge 07/12/2020 1344 by Matilde Griffin RN Outcome: Adequate for Discharge Goal: Understanding of ways to prevent infection will improve 07/12/2020 1344 by Matilde Griffin RN Outcome: Adequate for Discharge 07/12/2020 1344 by Matilde Griffin RN Outcome: Adequate for Discharge Problem: Nutritional: Goal: Nutritional status will improve 07/12/2020 1344 by Matilde Griffin RN Outcome: Adequate for Discharge 07/12/2020 1344 by Matilde Griffin RN Outcome: Adequate for Discharge Problem: Physical Regulation: Goal: Diagnostic test results will improve 07/12/2020 1344 by Matilde Griffin RN Outcome: Adequate for Discharge 07/12/2020 1344 by Matilde Griffin RN Outcome: Adequate for Discharge Goal: Will remain free from infection 07/12/2020 1344 by Matilde Griffin RN Outcome: Adequate for Discharge 07/12/2020 1344 by Matilde Griffin RN Outcome: Adequate for Discharge Goal: Ability to maintain vital signs within normal range will improve 07/12/2020 1344 by Matilde Griffin RN Outcome: Adequate for Discharge 07/12/2020 1344 by Matilde Griffin RN Outcome: Adequate for Discharge Problem: Respiratory: Goal: Ability to maintain normal respiratory secretions will improve 07/12/2020 1344 by Matilde Griffin RN Outcome: Adequate for Discharge 07/12/2020 1344 by Matilde Griffin RN Outcome: Adequate for Discharge Problem: Skin Integrity: Goal: Demonstration of wound healing without infection will improve 07/12/2020 1344 by Matilde Griffin RN Outcome: Adequate for Discharge 07/12/2020 1344 by Matilde Griffin RN Outcome: Adequate for Discharge Goal: Complications related to intravenous access or infusion will be avoided or minimized 07/12/2020 1344 by Matilde Griffin RN Outcome: Adequate for Discharge 07/12/2020 1344 by Matilde Griffin RN Outcome: Adequate for Discharge Problem: Lack of Knowledge: Goal: Knowledge of the prescribed therapeutic regimen will improve 07/12/2020 1344 by Matilde Griffin RN Outcome: Adequate for Discharge 07/12/2020 1344 by Matilde Griffin RN Outcome: Adequate for Discharge Problem: Activity: Goal: Ability to ambulate will improve 07/12/2020 1344 by Matilde Griffin RN Outcome: Adequate for Discharge 07/12/2020 1344 by Matilde Griffin RN Outcome: Adequate for Discharge Goal: Muscle strength will improve 07/12/2020 1344 by Matilde Griffin RN Outcome: Adequate for Discharge 07/12/2020 1344 by Matilde Griffin RN Outcome: Adequate for Discharge Goal: Range of joint motion will improve 07/12/2020 1344 by Matilde Griffin RN Outcome: Adequate for Discharge 07/12/2020 1344 by Matilde Griffin RN Outcome: Adequate for Discharge Problem: Physical Regulation: Goal: Ability to avoid complications of mobility impairment will improve 07/12/2020 1344 by Matilde Griffin RN Outcome: Adequate for Discharge 07/12/2020 1344 by Matilde Griffin RN Outcome: Adequate for Discharge Problem: Safety: Goal: Ability to appropriately use an adaptive device for ambulation will improve 07/12/2020 1344 by Matilde Griffin RN Outcome: Adequate for Discharge 07/12/2020 1344 by Matilde Griffin RN Outcome: Adequate for Discharge Goal: Ability to safely and independently change position in bed will improve 07/12/2020 1344 by Matilde Griffin RN Outcome: Adequate for Discharge 07/12/2020 1344 by Matilde Griffin RN Outcome: Adequate for Discharge Goal: Ability to safely transfer will improve 07/12/2020 1344 by Matilde Griffin RN Outcome: Adequate for Discharge 07/12/2020 1344 by Matilde Griffin RN Outcome: Adequate for Discharge Problem: Health Behavior: Goal: Understanding of discharge needs will improve 07/12/2020 1344 by Matilde Griffin RN Outcome: Adequate for Discharge 07/12/2020 1344 by Matilde Griffin RN Outcome: Adequate for Discharge Goals: Clinical Goals for the Shift: Adequate pain control, continue on antibiotics Summary:Goals and outcomes adequate for discharge to SNF. See nursing note for detailed summary of shift. COVERER * Plan of Care - Terra Winter PA - 07/12/2020 11:13 AM CST Infectious Disease Sign Off Recommendations Diagnosis:osteomyelitis, TKA PJI Status Post: AKA, I&D Retained Hardware: No Site of Infection(s): L tibia, L knee and distal femur Organism(s): ecoli, proteus mirabilis, mixed orgs Antibiotics Start Date: 07/08/2020 x 14 days firm stop PMD: medicine service in house, [facility] ortho surgeon Infectious Disease Team: [facility] Infectious Disease Attending: Jeremías Medication Recommendations: Drug(s): augmentin 875mg po bid x 14 days, firm stop Firm Stop: Yes Labs/Frequency to be Monitored: n/a Imaging Required Before Follow Up: No Summary of Consultation: Chief Complaint: LLE HW infection and c/f OM ?? HPI: The patient is a 69 y.o. female w/PMH of porphyria (sulfa drugs contraindicated), HTN, GERD, bipolar and seizure disorder, sick sinus syndrome, COPD on 4L at baseline, recent COVID-19 (+), and complex L-tibia fx s/p ORIF and R-ankle fx s/p ORIF (both on 06/30) c/b poor wound healing s/p multiple abx courses (cephalexin, clinda); now admitted for LLE HW infection and c/f OM (exam probes to bone) ?? Pt had a L-type 3A open tibia shaft??fx??below a??total knee stem and a R-tibial plafond fracture??after sustaining a fall in Jun 2019. Initially underwent urgent L-tibia I&D + temporary locking plate + VAC in 06/28/19. On 06/30, underwent I&D and ORIF of L-tibial shaft fx and R-medial malleolus fx + complex layered wound closure of traumatic laceration measuring 40 cm. Of note, she had MRSA BSI in Aug 2019. Last seen by Ortho (05/07/20) and the wound looked ok at the time, but she had just received a course of cephalexin for wound erythema/drainage with adequate response. ?? In the past ~2 weeks she has noticed worsening LLE erythema, edema, pain and in the last two days purulent drainage from her chronic wound; which prompted her to go to the OSH ([facility]) where one dose of vancomycin was given prior to transfer. Since her surgery in Jun 2019, the patient has been wheelchair bound and staying in a SNF where she tested (+) for COVID around . At the time she had fever for a couple of days but no other symptoms. Last abx course was with clindamycin and was completed the day prior to admission. ?? Afebrile and stable since admission. Labs are relevant for CrCL 42 ml/min, CRP 236, ESR 100. WBC 24k, PLT 420, LFTS ok. Albumin 3.4. BCX (07/05) NGTD. CT tib/fib (07/06) showed periprosthetic fx of L-prox tib&fib, mildly displaced, angulated and nonunited, w/overlying periosteal reaction c/f infection. ?? 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 Per d/w ortho they felt the amptuation to be proximal to the area of infection and they did extra debridement of the bone and tissue after the amp. Cx obtained of the remaining femur stump after the amputation and debridement are NGTD. She was on vanc/cefe post op, narrowed to cefe then augmentin prior to discharge. Other Recommendations: close follow up with surgery team. No formal ID follow up needed but please reach out to the bone and joint ID team with any infectious concerns going forward. Follow Up Plan: see above Augmentin can be associated with GI intolerance, diarrhea, rash, leukopenia, thrombocytopenia, interstitial nephritis, LFT elevation, cholestatic hepatitis. Cosigned by Og Cintron MD at 07/12/2020 11:30 AM BODY COVERER COVERER COVERER COVERER * Plan of Care - Keren Field MSW - 07/12/2020 10:35 AM CST Social Work [place] [id number] [place] [id number]. Per chart review patient admitted from [facility] and plan is to return at time of discharge. Social Work to follow. Keren Field [facility] [phone] COVERER * Plan of Care - Qi Vidal RN - 07/12/2020 3:19 AM CST Problem: Lack of Knowledge: Goal: Ability to state ways to decrease the risk of falls will improve 07/12/2020318 by Qi Vidal RN Outcome: Progressing 07/12/2020318 by Qi Vidal RN Outcome: Progressing Problem: Safety: Goal: Will remain free from falls 07/12/2020318 by Qi Vidal RN Outcome: Progressing 07/12/2020318 by Qi Vidal RN Outcome: Progressing Goal: Will remain free from injury from falls 07/12/2020318 by Qi Vidal RN Outcome: Progressing 07/12/2020318 by Qi Vidal RN Outcome: Progressing Goal: Will remain free from falls and injury in home environment 07/12/2020318 by Qi Vidal RN Outcome: Progressing 07/12/2020318 by Qi Vidal RN Outcome: Progressing Problem: Lack of Knowledge: Goal: Ability to state signs and symptoms to report to health care provider will improve 07/12/2020318 by Qi Vidal RN Outcome: Progressing 07/12/2020318 by Qi Vidal RN Outcome: Progressing Goal: Understanding of ways to prevent infection will improve Outcome: Progressing Problem: Nutritional: Goal: Nutritional status will improve Outcome: Progressing Problem: Physical Regulation: Goal: Diagnostic test results will improve Outcome: Progressing Goal: Will remain free from infection Outcome: Progressing Goal: Ability to maintain vital signs within normal range will improve Outcome: Progressing Problem: Respiratory: Goal: Ability to maintain normal respiratory secretions will improve Outcome: Progressing Problem: Skin Integrity: Goal: Demonstration of wound healing without infection will improve Outcome: Progressing Goal: Complications related to intravenous access or infusion will be avoided or minimized Outcome: Progressing Problem: Lack of Knowledge: Goal: Knowledge of the prescribed therapeutic regimen will improve Outcome: Progressing Problem: Activity: Goal: Ability to ambulate will improve Outcome: Progressing Goal: Muscle strength will improve Outcome: Progressing Goal: Range of joint motion will improve Outcome: Progressing Problem: Physical Regulation: Goal: Ability to avoid complications of mobility impairment will improve Outcome: Progressing Problem: Safety: Goal: Ability to appropriately use an adaptive device for ambulation will improve Outcome: Progressing Goal: Ability to safely and independently change position in bed will improve Outcome: Progressing Goal: Ability to safely transfer will improve Outcome: Progressing Problem: Health Behavior: Goal: Understanding of discharge needs will improve Outcome: Progressing Goals: Clinical Goals for the Shift: Pt will report adequate pain control and have a restful night Summary: Patient reported pain 9-10/10. PRN pain meds given. Patient refused all turns. VSS. COVERER COVERER * Significant Event - Obed Martinez MD - 07/11/2020 4:19 PM BODY COVERER Attending Note - Resolved COVID-19 Celestina Ansari is a patient who is known to have had test-confirmed COVID-19 disease starting on 06/21/20. A review of this case was performed by me (the primary inpatient attending) and based on the patient???s clinical picture and course this patient has met the appropriate symptom, time, or testing criterion established by [facility] to be considered to have resolved COVID-19 disease ([place] for criterion). Please note, followup COVID-19 testing is not recommended even for routine screening purposes, and subsequent positive tests should not be considered evidence of repeated or continued COVID-19 disease unless there is overwhelming additional clinical evidence to support that diagnosis. An ID consultis strongly recommended for assistance if the clinical team is considering a diagnosis of repeated or persistent COVID-19 infection. Prolonged residual COVID-19 test positivity is frequently seen, and does not correspond with prolonged infectivity. In numerous studies no persistent shedding of live-virus was seen past 20 days after the onset of COVID-19 infection in immunocompetent patients. [The patient is >20 out from diagnosis. She had a relatively mild COVID-19 course. She was admitted to [facility] for other reasons - left lower extremity infection - not related to COVID-19. She is currently not having any symptoms attributable to COVID-19. She is on her chronic O2 requirement of 4L. Her breathing is at baseline. She is not having fevers and has not been on anti-pyretics.] Obed Martinez MD 07/11/2020 Symptom-Based Strategies A. For Outpatients (Mild/Moderate Disease): Discontinuation criteria (must meet all criteria): -At least 10 days after symptom onset (or from test date if symptom onset date not known) AND -At least 24 hours after resolution of fever without the use of fever-reducing medications AND improvement in respiratory symptoms (e.g., cough, shortness of breath). B. For Inpatients (Severe/Critical Disease): Discontinuation criteria (must meet all criteria): -At least 20 days after symptom onset (or from test date if symptom onset date not known) AND -At least 24 hours after resolution of fever without the use of fever-reducing medications AND improvement in respiratory symptoms (e.g., cough, shortness of breath). COVERER * Plan of Care - Breanna Rodriguez RN - 07/11/2020 9:20 AM CST Goals: Clinical Goals for the Shift: Pt will remain HDS Problem: Lack of Knowledge: Goal: Ability to state ways to decrease the risk of falls will improve Outcome: Progressing Problem: Safety: Goal: Will remain free from falls Outcome: Progressing Goal: Will remain free from injury from falls Outcome: Progressing Goal: Will remain free from falls and injury in home environment Outcome: Progressing Problem: Lack of Knowledge: Goal: Ability to state signs and symptoms to report to health care provider will improve Outcome: Progressing Goal: Understanding of ways to prevent infection will improve Outcome: Progressing Problem: Nutritional: Goal: Nutritional status will improve Outcome: Progressing Problem: Physical Regulation: Goal: Diagnostic test results will improve Outcome: Progressing Goal: Will remain free from infection Outcome: Progressing Goal: Ability to maintain vital signs within normal range will improve Outcome: Progressing Problem: Respiratory: Goal: Ability to maintain normal respiratory secretions will improve Outcome: Progressing Problem: Skin Integrity: Goal: Demonstration of wound healing without infection will improve Outcome: Progressing Goal: Complications related to intravenous access or infusion will be avoided or minimized Outcome: Progressing Problem: Lack of Knowledge: Goal: Knowledge of the prescribed therapeutic regimen will improve Outcome: Progressing Problem: Activity: Goal: Ability to ambulate will improve Outcome: Progressing Goal: Muscle strength will improve Outcome: Progressing Goal: Range of joint motion will improve Outcome: Progressing Problem: Physical Regulation: Goal: Ability to avoid complications of mobility impairment will improve Outcome: Progressing Problem: Safety: Goal: Ability to appropriately use an adaptive device for ambulation will improve Outcome: Progressing Goal: Ability to safely and independently change position in bed will improve Outcome: Progressing Goal: Ability to safely transfer will improve Outcome: Progressing Problem: Health Behavior: Goal: Understanding of discharge needs will improve Outcome: Progressing Summary: Patient verbalized understanding of care plan and is participating in care. Will continue to monitor patient's progress. COVERER * Plan of Care - Jesse Waterman RN - 07/10/2020 9:38 PM CST Problem: Lack of Knowledge: Goal: Ability to state ways to decrease the risk of falls will improve Outcome: Progressing Problem: Safety: Goal: Will remain free from falls Outcome: Progressing Goal: Will remain free from injury from falls Outcome: Progressing Goal: Will remain free from falls and injury in home environment Outcome: Progressing Problem: Lack of Knowledge: Goal: Ability to state signs and symptoms to report to health care provider will improve Outcome: Progressing Goal: Understanding of ways to prevent infection will improve Outcome: Progressing Problem: Nutritional: Goal: Nutritional status will improve Outcome: Progressing Problem: Physical Regulation: Goal: Diagnostic test results will improve Outcome: Progressing Goal: Will remain free from infection Outcome: Progressing Goal: Ability to maintain vital signs within normal range will improve Outcome: Progressing Problem: Respiratory: Goal: Ability to maintain normal respiratory secretions will improve Outcome: Progressing Problem: Skin Integrity: Goal: Demonstration of wound healing without infection will improve Outcome: Progressing Goal: Complications related to intravenous access or infusion will be avoided or minimized Outcome: Progressing Problem: Lack of Knowledge: Goal: Knowledge of the prescribed therapeutic regimen will improve Outcome: Progressing Problem: Activity: Goal: Ability to ambulate will improve Outcome: Progressing Goal: Muscle strength will improve Outcome: Progressing Goal: Range of joint motion will improve Outcome: Progressing Problem: Physical Regulation: Goal: Ability to avoid complications of mobility impairment will improve Outcome: Progressing Problem: Safety: Goal: Ability to appropriately use an adaptive device for ambulation will improve Outcome: Progressing Goal: Ability to safely and independently change position in bed will improve Outcome: Progressing Goal: Ability to safely transfer will improve Outcome: Progressing Problem: Health Behavior: Goal: Understanding of discharge needs will improve Outcome: Progressing Goals: Clinical Goals for the Shift: pt will remain hemodynamically stable Summary: Patient verbalized understanding of care plan, and is participating in daily care. Will continue to monitor. COVERER * Plan of Care - Jesse Waterman RN - 07/09/2020 10:19 PM CST Problem: Lack of Knowledge: Goal: Ability to state ways to decrease the risk of falls will improve Outcome: Progressing Problem: Safety: Goal: Will remain free from falls Outcome: Progressing Goal: Will remain free from injury from falls Outcome: Progressing Goal: Will remain free from falls and injury in home environment Outcome: Progressing Problem: Lack of Knowledge: Goal: Ability to state signs and symptoms to report to health care provider will improve Outcome: Progressing Goal: Understanding of ways to prevent infection will improve Outcome: Progressing Problem: Nutritional: Goal: Nutritional status will improve Outcome: Progressing Problem: Physical Regulation: Goal: Diagnostic test results will improve Outcome: Progressing Goal: Will remain free from infection Outcome: Progressing Goal: Ability to maintain vital signs within normal range will improve Outcome: Progressing Problem: Respiratory: Goal: Ability to maintain normal respiratory secretions will improve Outcome: Progressing Problem: Skin Integrity: Goal: Demonstration of wound healing without infection will improve Outcome: Progressing Goal: Complications related to intravenous access or infusion will be avoided or minimized Outcome: Progressing Problem: Lack of Knowledge: Goal: Knowledge of the prescribed therapeutic regimen will improve Outcome: Progressing Problem: Activity: Goal: Ability to ambulate will improve Outcome: Progressing Goal: Muscle strength will improve Outcome: Progressing Goal: Range of joint motion will improve Outcome: Progressing Problem: Physical Regulation: Goal: Ability to avoid complications of mobility impairment will improve Outcome: Progressing Problem: Safety: Goal: Ability to appropriately use an adaptive device for ambulation will improve Outcome: Progressing Goal: Ability to safely and independently change position in bed will improve Outcome: Progressing Goal: Ability to safely transfer will improve Outcome: Progressing Problem: Health Behavior: Goal: Understanding of discharge needs will improve Outcome: Progressing Goals: Clinical Goals for the Shift: pt will remain hemodynamically stable Summary: Patient verbalized understanding of care plan, and is participating in daily care. Will continue to monitor. COVERER * Plan of Care - Fernanda Mcarthur MSW - 07/09/2020 3:39 PM CST JAYNE attempted to speak to the pt to see if they wanted to return to [facility]) but no response. JAYNE spoke with pt's dtr aMrtina #[phone] to discuss the above, and she was agreeable to pt returning to their facility. She tried calling the pt on their cell phone for a 3-way call, but the pt still did not answer. Dtr and JAYNE left a voicemail for the pt. JAYNE sent referral. JAYNE to follow. DIEGO Coley # [phone] COVERER * ECIN Note - Fernanda Mcarthur MSW - 07/09/2020 3:30 PM CST Patient Information: OT Eval and Treat Last 72 Hours OT Evaluation Row Name 07/09/20 0855 Chart Reviewed Yes - Session Type Evaluation - OT Received On 07/09/20 - Safe Environment Arm Band Checked;Call Light within Reach;Notified RN;Patient found in Supine pt left sitting in chair, BLEs elevated. - Subjective Agreeable to Therapy - Family/Caregiver Present No - Occupational Therapy-Patient Goal Pt agreeable to acute goals suggested. - Precautions Fall risk - Weight Bearing Restrictions Yes - LLE Weight Bearing NWB - Type of Home Group Home Facility - Home Layout One level - Home Access Level entry - Bathroom Toilet Standard - Home Mobility Equipment Wheeled walker;Wheelchair-manual - Level of Etta Independent with ADLs;Independent functional transfers;Independent with ambulation - Lives With Other (Comment) has been at a SNF >1 year - Receives Help From Other (Comment) SNF staff - Driving No - ADL Assistance Independent reports assist for showering - Fall within the last 6 months No - Prior Function Comments Pt reports she was able to independently transfer herself from bed to her wheelchair at her SNF, but was getting assistance for showers. Questionable historian given current abilities. - LE Dressing: Where assessed Supine, bed - LE Dressing: Level of assistance Maximum Assist - LE Dressing: Assistance with Don/doff R sock;Don/doff L sock;Thread RLE into pants;Thread LLE into pants;Thread RLE into underwear;Thread LLE into underwear;Pull up over hips - Toileting: Where assessed Chair - Toileting: Level of assistance Maximum Assist - Toileting: Assistance with Clothing management down;Clothing management up;Anterior;Posterior - Toilet Transfer From Bed - Toilet Transfer Type To - Toilet Transfer to Standard bedside commode simulated via bedside chair - Toilet Transfer Technique To right;Squat pivot - Toilet Transfer: Equipment No device - Toilet Transfers Maximal assistance x2 - Toilet Transfers Comments Max Ax2 (with PT) for force production, maintaining balance, and controlling descent. - Pain Assessment 0-10 - Pain Score 8 - Pain Location Leg - Pain Orientation Left - Pain Interventions RN Notified RN reported pain meds administered pre-session - Activity Tolerance Comments Yasmin: hard - Arousal/Alertness Alert;Appropriate responses to stimuli - Attention Span Appears intact - Current communication Appears Intact - Orientation Oriented X4 (person, place, time, situation) - Following Commands Follows all commands and directions without difficulty - Compliance/Behavior Easy to engage somewhat irritable - Balance Yes - Static Sitting-Balance Support Feet supported;Bilateral upper extremity supported - Static Sitting-Sitting Surface Bed - Static Sitting-Level of Assistance Contact guard;Close supervision;Moderate assistance;Minimum assistance - Static Sitting-Comment/# of Minutes fluctuating between sba-mod a at EOB to maintain trunk control.~5 minutes at EOB. - Static Standing-Balance Support Bilateral upper extremity supported - Static Standing-Standing Surface Floor - Static Standing-Level of Assistance Maximum assistance x2 with PT - Static Standing-Comment/# of Minutes Max Ax2 for maintaining balance/safety and fine trunk/hip extension. - Bed Mobility Yes - Bed Mobility From 1 Supine - Bed Mobility Type 1 To - Bed Mobility to 1 Short sit;Edge of bed - Level of Assistance 1 Maximum Assist x2 - Bed Mobility Comments 1 Max Ax2 for trunk elevation and maneuvering B hips to EOB. - Transfer Yes gait belt donned for OOB mobility - Transfer From 1 Sit - Transfer Type 1 To and from - Transfer to 1 Stand - Technique 1 Sit to stand;Stand to sit - Transfer Device 1 No device - Transfer Level of Assistance 1 Maximum Assist x2 - Trials/Comments 1 Max Ax2 for force production, maintaining balance, and controlling descent. - RUE Assessment X - R Shoulder Flexion 90 Degrees chronic pain after rotator cuff injury, per patient. - LUE Assessment WFL - Comments Discussed plan of care with patient verbalizing understanding. Patient needs a lot of encouragement to participate and is very painful at time of evaluation. Will continue to follow and encourage participation. - Problem List Decreased upper extremity strength;Decreased upper extremity range of motion;Decreasedendurance;Decreased balance;Decreased functional mobility;Decreased ADL independence;Decreased IADLindependence;Pain - Barriers to Discharge Current Mobility Status;Other (Comment) fall risk - Plan Plan of care initiated;If this is the last note, consider this the discharge summary - OT Recommendation Group Home Facility - OT Frequency 2-3x/wk - Treatment/Interventions ADL/IADL retraining;Balance Training;Bed mobility;Endurance training;Functional activity;Functional mobility training;Functional transfer training;Strengthening;Therapeutic act ivity;Therapeutic exercise;Transfer training - OT - Next Appointment 07/11/20 - OT - OK to Discharge No - OT Evaluation Complete Yes - User Garcia (r) = Recorded By, (t) = Taken By, (c) = Cosigned By Initials Name Effective Dates Marion Walsh OT 06/26/19 - OT Treatment No documentation. OT Notes (Notes from 07/07/20 through 07/09/20) 07/09/2020 12:03 PM Progress Notes signed by Marion Walsh OT , PT Eval and Treat Last 72 Hours PT Evaluation Row Name 07/09/20 0829 07/08/20 1216 Chart Reviewed Yes -MA -- Session Type Evaluation -MA -- Safe Environment Arm Band Checked;Notified RN;Session Completed Bedside;Patient found in Supine -MA-- Subjective Other Reluctant to participate -MA -- Subjective Comment I hurt -MA -- PT Missed Visit Reason -- MD/RN Hold;Procedure/testing/appointment pt to OR for AKA -MA Family/Caregiver Present No -MA -- Physical Therapy-Patient Goal None specifically stated -MA -- Precautions Fall risk -MA -- Weight Bearing Restrictions Yes -MA -- LLE Weight Bearing NWB -MA -- Type of Home Group Home Facility -MA -- Home Layout One level -MA -- Home Access Level entry -MA -- Home Mobility Equipment Wheeled walker;Wheelchair-manual -MA -- Additional Comments pt reports typically using w/c for all mobility and is able to perform transfers independently -MA -- Level of Etta Independent with ADLs;Independent functional transfers;Independent with wheelchair -MA -- Lives With Other (Comment) SNF -MA -- Receives Help From Other (Comment) SNF staff -MA -- Driving No -MA -- Vocational/Occupation Retired -MA -- Fall within the last 6 months No -MA -- Activity Tolerance Comments Yasmin = -MA -- Pain Assessment 0-10 -MA -- Pain Score 8 -MA -- Pain Type Surgical pain -MA -- Pain Location Leg -MA -- Pain Orientation Left;Distal -MA -- Pain Interventions RN Notified RN notes administering medication prior to session -MA -- Arousal/Alertness Alert;Appropriate responses to stimuli -MA -- Orientation Oriented X4 (person, place, time, situation) -MA -- Following Commands Follows all commands and directions without difficulty -MA -- Safety Judgment Good awareness of safety precautions -MA -- Compliance/Behavior Easy to engage -MA -- Light Touch WFL in BUE/BLE -MA -- Numbness/Tingling No -MA -- Sensation Comments Skin intact throughout except LLE wrapped in ZACHARY bandage. 1+ BLE edema -MA -- Balance Yes -MA -- Static Sitting-Balance Support Bilateral upper extremity supported;Feet supported -MA -- Static Sitting-Sitting Surface Bed -MA -- Static Sitting-Level of Assistance Close supervision;Moderate assistance -MA -- Static Sitting-Comment/# of Minutes pt requires fluctuating SBA-mod A at EOB to maintain upright posture and balance -MA -- Static Standing-Balance Support Bilateral upper extremity supported -MA -- Static Standing-Standing Surface Floor -MA -- Static Standing-Level of Assistance Maximum assistance x2 -MA -- Static Standing-Comment/# of Minutes assist for balance and safety with hip extension -MA -- Bed Mobility Yes -MA -- Bed Mobility From 1 Supine -MA -- Bed Mobility Type 1 To -MA -- Bed Mobility to 1 Edge of bed -MA -- Level of Assistance 1 Maximum Assist x2 -MA -- Bed Mobility Comments 1 HOB elevated 30 degrees; assist for trunk elevation and hip negotiation toward EOB -MA -- Transfer Yes -MA -- Transfer From 1 Sit;Bed -MA -- Transfer Type 1 To and from -MA -- Transfer to 1 Stand -MA -- Technique 1 Stand to sit;Sit to stand -MA -- Transfer Device 1 Hand held assist -MA -- Transfer Level of Assistance 1 Maximum Assist x2 -MA -- Trials/Comments 1 x2 trials from EOB; assist for force production and hip/knee extension for upright posture -MA -- Transfer From 2 Sit;Bed -MA -- Transfer Type 2 To -MA -- Transfer to 2 Sit;Chair with arms -MA -- Technique 2 Stand pivot -MA -- Transfer Device 2 Hand held assist -MA -- Transfer Level of Assistance 2 Maximum Assist x2 -MA -- Trials/Comments 2 assist for -MA -- Ambulation No -MA -- Ambulation Comments 1 Unable to assess this date -MA -- Stairs No -MA -- RUE Assessment X -MA -- R Shoulder Flexion 100 Degrees -MA -- LUE Assessment X -MA -- L Shoulder Flexion 90 Degrees -MA -- RLE Assessment WFL -MA -- LLE Assessment X -MA -- L Hip Flexion /5 -MA -- L Hip ABduction 09/27 -MA -- Equipment Use Comments Gait belt in use with all OOB mobility -MA -- Other PT Comments Pt very self-limiting and very particular. She responds well to strict commands -MA -- How much difficulty does the patient have: Turning over in bed 2 -MA -- How much difficulty does the patient currently have: Sitting down and standing up from a chair witharms? 2 -SC -- How much difficulty does the patient have: Moving from lying on back to sitting on the side of the bed? 2 -SC -- How much difficulty does the patient have: Moving to and from a bed to a chair including wheelchair? 2 -SC -- How much help does the patient currently need: Walk in hospital room? 1 -SC -- How much help from another person does the patient currently need: Climbing 3-5 steps with a railing? 1 -MA -- Total 6 Click Score (range 6-24) 10 -MA -- Score Interpretation 28.13 -MA -- Prognosis Fair -MA -- Problem List Gait deviations;Decreased strength;Decreased endurance;Impaired balance;Decreased mobility;Obesity;Orthopedic restrictions;Pain -MA -- Problem List Comments Pt s/p L AKA results in above listed activity deficits and impairments which prevent full participation in home and community mobility. -MA -- Barriers to Discharge Current Mobility Status;Decreased safety awareness -MA -- Plan Plan of care initiated;If this is the last note, consider this the discharge summary -MA -- PT Recommendation/Plan Group Home Facility -MA -- PT Recommendation/Plan Comments back to facility -MA -- PT Frequency Daily 6-7x/week -MA Monitor status -MA Treatment/Interventions Balance Training;Bed mobility;Endurance training;Equipment eval/education;Functional activity;Functional transfer training;Gait training;Neuromuscular re-education;Parent/caregiver training and education;Range of motion;Stair training;Strengthening;Therapeutic activity;Therapeutic exercise;Transfer training -SC -- PT Evaluation Complete Yes -SC -- User Garcia (r) = Recorded By, (t) = Taken By, (c) = Cosigned By Initials Name Effective Dates SC Gilberto Armstrong, PT 06/26/19 - PT TREATMENT (last 168 hours) PT Treatment No documentation. PT Notes (Notes from 07/07/20 through 07/09/20) 07/09/2020 10:16 AM Progress Notes signed by Gilberto Armstrong, PT COVERER * Plan of Care - Bernardo Burgess RN - 07/08/2020 7:54 PM CST Problem: Lack of Knowledge: Goal: Ability to state ways to decrease the risk of falls will improve Outcome: Progressing Problem: Safety: Goal: Will remain free from falls Outcome: Progressing Goal: Will remain free from injury from falls Outcome: Progressing Goal: Will remain free from falls and injury in home environment Outcome: Progressing Problem: Lack of Knowledge: Goal: Ability to state signs and symptoms to report to health care provider will improve Outcome: Progressing Goal: Understanding of ways to prevent infection will improve Outcome: Progressing Problem: Nutritional: Goal: Nutritional status will improve Outcome: Progressing Problem: Physical Regulation: Goal: Diagnostic test results will improve Outcome: Progressing Goal: Will remain free from infection Outcome: Progressing Goal: Ability to maintain vital signs within normal range will improve Outcome: Progressing Problem: Respiratory: Goal: Ability to maintain normal respiratory secretions will improve Outcome: Progressing Problem: Skin Integrity: Goal: Demonstration of wound healing without infection will improve Outcome: Progressing Goal: Complications related to intravenous access or infusion will be avoided or minimized Outcome: Progressing Problem: Lack of Knowledge: Goal: Knowledge of the prescribed therapeutic regimen will improve Outcome: Progressing Problem: Activity: Goal: Ability to ambulate will improve Outcome: Progressing Goal: Muscle strength will improve Outcome: Progressing Goal: Range of joint motion will improve Outcome: Progressing Problem: Physical Regulation: Goal: Ability to avoid complications of mobility impairment will improve Outcome: Progressing Problem: Safety: Goal: Ability to appropriately use an adaptive device for ambulation will improve Outcome: Progressing Goal: Ability to safely and independently change position in bed will improve Outcome: Progressing Goal: Ability to safely transfer will improve Outcome: Progressing Problem: Health Behavior: Goal: Understanding of discharge needs will improve Outcome: Progressing Goals: Clinical Goals for the Shift: Pain control, Stable VS Summary: Franki VS are stable and is requiring PRN pain meds. COVERER * Assessment & Plan Note - Obed Martinez MD - 07/08/2020 4:27 PM BODY COVERER Associated Problem(s): Hyponatremia - Pt with history of hypoNa (per report, baseline mid 120- low 130s). - Na 126 on admission. No AMS. - TSH wnl. Cortisol 17. - Na stable. COVERER COVERER * Assessment & Plan Note - Obed Martinez MD - 07/08/2020 4:27 PM BODY COVERER Associated Problem(s): Chronic respiratory failure (HCC) - Per pt 2/2 COPD. No sings of acute exacerbation. - Continue home flonase - Continue home albuterol prn - On home is on 4L O2 at baseline COVERER * Assessment & Plan Note - Obed Martinez MD - 07/08/2020 4:27 PM BODY COVERER Associated Problem(s): Open displaced comminuted fracture of shaft of left tibia, type IIIA, IIIB, or IIIC - See above. COVERER * Assessment & Plan Note - Obed Martinez MD - 07/08/2020 4:26 PM BODY COVERER Associated Problem(s): Moderate essential hypertension - Follows with cardiology. - Continue home amlodipine, metoprolol, lasix, spironolactone. - Switched olmesartan to losartan as not on formulary. COVERER * Assessment & Plan Note - Obed Martinez MD - 07/08/2020 4:25 PM BODY COVERER Associated Problem(s): COVID-19 - Patient tested positive for COVID-19 on 06/21/20 at her residential ([facility] in [place], [place]). - She reports her only symptom [...] test with resolution of symptoms, she is consideredCOVID-19 recovered. COVID-19 Isolation precautions will be removed as soon as we can obtain hard copy records of her positive test from her SNF. COVERER COVERER COVERER COVERER COVERER * Assessment & Plan Note - Obed Martinez MD - 07/08/2020 4:21 PM BODY COVERER Associated Problem(s): Left lower extremity infection History of open periprosthetic tibia/fibula fracture s/p [...] left lower extremity. - PM&R consulted. - Highway Patrol Pilot placed stump coat maker / ampushield. Awaiting delivery of limb protector. - Patient not interested in prosthesis at this time. - PT/OT consults. - Plan for patient to return to her prior SNF when medically stable with ongoing PT/OT. - ID and Ortho following. 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 Left above knee amputation CLINICAL NOTE/INDICATIONS: This patient is a 69 y.o. female who is well known to myself and the trauma service for previous treatment of open tibia fracture below a total knee arthroplasty. She presented to the hospital with drainage from the traumatic wound with dehiscence worsening from previous states and a lack of skeletal healing as previously noted and clinical follow-up. We recommended left above knee amputation to eradicate infection due to the patient's inability to heal the wound and infection involving the prosthetic total knee arthroplasty. She understands the risks and benefits, and wishes to proceed. Written consent was obtained. DESCRIPTION OF PROCEDURE: Celestina Ansari was brought to the preoperative area. The correct limb was marked with the skin marker. She received a weight appropriate dose of IV antibiotics prior to starting surgery. She was taken to the operative theater. A timeout with members of Anesthesia, Orthopedics, and Nursing teams agreeing on the correct side of surgery, correct surgical plan, correct patient. Once this was completed, she was given general anesthetic, intubated without complication, placed in a supine position on the operating room table. All bony prominences were well padded. The left lower extremity was prepped and draped in the usual fashion. We made a fishmouth type incision anteriorly just proximal to the level of patella and extending upthe mid lateral and mid medial portions of the thigh, and then continued our sharp dissection through the fascia of the thigh and directly through the quadriceps tendon, extending through the later[place] medial quadriceps. We reflected the distal tissue and visualized the suprapatellar pouch, whichwas excised exposing the total knee arthroplasty. There was purulent material within the knee jointitself, surrounding the total joint arthroplasty. We continued our dissection by sharply incising the lateral intermuscular septum and identified the biceps femoris. On the medial side we incised themedial intermuscular septum and identified the abductor musculature, isolating it and incising it away from the distal femur. Next we used a saw to perform an osteotomy of the femur in the metaphyseal zone. Once we began the osteotomy we were able to easily loosened and then removed the total knee arthroplasty stem from the femur. Once this was performed, the amputation knife was used to incise the soft tissues of the popliteal fossa and then we used a scalpel to incise the skin distal to our expected eventual posterior flap. We removed the amputated limb off of the field and began to dissectin the popliteal fossa and posterior thigh identifying and isolating the popliteal artery as it came to the abductor hiatus as well as the vein. These were treated with suture ligature. We identifiedthe sciatic nerve, both branches intact at this level together, and we put it on tension, crushed, Bovie cauterized, and then incised this nerve allowing it to retract proximally. We identified the saphenous nerve in the subcutaneous space and treated with the same method. At this point we evaluated the end of the femur, there was residual sclerotic bone at this level of the femur from the contact point of the removed total joint arthroplasty. Given its contamination, we elected to perform a slightly higher osteotomy with a saw. Once we completed this, a culture was obtained and the entire wound was pre scrubbed with chlorhexidine solution and copiously irrigated. Drill holes were placed into the femur and myodesis were performed with the hamstring tendons and the abductor tendons to the femur. We incised and shaped the quadriceps muscle and sewed it over the end of the residual limb. We did this after isolating the fasciocutaneous flaps posteriorly and anteriorly. Once we were able to mobilize the fasciocutaneous flaps, they were shaped by removing excess tissue and then closed in a layered fashion. Anesthesia was reversed, [facility] without complication[facility] POSTOPERATIVE PLAN: 1. Non weight bearing, left lower extremity for 4 to 6 weeks 2. Continuation of IV antibiotics, follow-up of intraoperative cultures ESTIMATED BLOOD LOSS: Per Anesthesia INTRAOPERATIVE FLUIDS: Per Anesthesia SPONGE/INSTRUMENT/NEEDLE COUNTS: Correct CONDITION ON DISCHARGE: Stable COMPLICATIONS: None STATEMENT OF ATTENDING SURGEON'S PRESENCE: I am the attending surgeon. I was scrubbed and present for the critical portions of the case, including the deep approach, decision of the amputation level, the final osteotomy, the suture ligature of the blood vessels and the management of the nerves, the myodesis, and the closure of the deep layers. For all other non- critical portions of the case, I was immediately available. Jacobo Shoemaker MD MSc COVERER * Brief Op Note - Ernesto Devine MD PhD - 07/08/2020 11:58 AM BODY COVERER Operative Progress Note Surgical Team: Surgeon(s) and Role: * Jacobo Shoemaker MD - Primary * Ernesto Devine MD PhD - Resident - Assisting * Huang Martin MD - Resident - Assisting Anesthesiologist: Monroe Mariscal MD SAMPLE PATTERNMAKER: Efren Cobb CRNA Executive Account Manager: Malena Lara RN; Hernando Henriquez RN; Gumaro Hugo RN Licensed Midwife: Julissa Aguilar RT Scrub Relief: Joe Murillo ST Scrub: Anca Webb RN DATE OF SURGERY : 07/08/2020 Preoperative Diagnosis: Pre-op Diagnosis * Leg skin lesion, left [L98.9] Postoperative Diagnosis: Post-op Diagnosis * Leg skin lesion, left [L98.9] Procedure(s): Procedure(s) (LRB): AMPUTATION ABOVE KNEE (Left) Operative Findings: L TKA infected, s/p AKA Estimated Blood Loss: No blood loss documented. Intraoperative Fluids: Please see anesthesia flow sheet Specimens: ID Type Source Tests Collected by Time A : Left AKA Tissue Amputation non-tramatic SURGICAL PATHOLOGY Jacobo Shoemaker MD 07/08/2020 1218 Implants: Nothing was implanted during the procedure Blood/Blood Products Transfused: 0 mls Complications: None Condition on Discharge from the operating room was stable Ernesto Devine MD PhD Date: 07/08/2020 Time: 2:25 PM Cosigned by Jacobo Shoemaker MD at 07/09/2020 6:36 AM BODY COVERER COVERER COVERER * Assessment & Plan Note - Vianney Dia MD - 07/07/2020 6:26 PM BODY COVERER Associated Problem(s): Moderate essential hypertension - Follows with cardiology - Continue home amlodipine, metoprolol, lasix, spironolactone - Switched olmesartan to losartan as not on formulary COVERER * Assessment & Plan Note - Vianney Dia MD - 07/07/2020 6:26 PM BODY COVERER Associated Problem(s): Chronic respiratory failure (HCC) - Per pt 2/2 COPD. No sings of acute exacerbation. - Continue home flonase - Continue home albuterol prn - On baseline 4L O2 COVERER * Assessment & Plan Note - Vianney Dia MD - 07/07/2020 6:25 PM BODY COVERER Associated Problem(s): Hyponatremia - Pt with history of hypoNa (per report, baseline mid 120- low 130s). - Na 126 on admission. No AMS. - TSH wnl. Cortisol 17. - Diuretics were held and Na improved to 132. Restart when able. COVERER * Assessment & Plan Note - Vianney Dia MD - 07/07/2020 6:22 PM BODY COVERER Associated Problem(s): COVID-19 - Pt states she was actually tested [...] up. - COVID isolation per hospital protocol COVERER * Assessment & Plan Note - Vianney Dia MD - 07/07/2020 6:17 PM BODY COVERER Associated Problem(s): Left lower extremity infection - History of open periprosthetic tibia/fibula fracture [...] - PT/OT - Nonweightbearing left lower extremity COVERER COVERER * Subjective & Objective - Vianney Dia MD - 07/07/2020 6:11 PM BODY COVERER Daily Progress Note Division of Hospital Medicine COVID Unit Name: Celestina Ansari Today: July 07, 2020 : 1950 Age: 69 y.o. female Admit: 07/05/2020 Bed: [id number] Subjective Chief complaint: L leg infection c/f OM, hyponatremia, COVID Interval History: - Underwent removal of hardware and irrigation and debridement of her tibial and fibular shaft hardware yesterday. - Tissue culture growing GNB and GPC. Bcx growing staph epidermidis. - Ortho discussed amputation with pt. She would like to try antibiotic therapy first and re-evaluate. Objective Medications: Scheduled: ??? acetaminophen, 1,000 mg, oral, Q8H ??? amLODIPine, 10 mg, oral, Daily ??? atorvastatin, 10 mg, oral, Nightly ??? baclofen, 2.5 mg, oral, TID with meals ??? busPIRone, 5 mg, oral, Daily ??? cefepime, 1,000 mg, intravenous, Q8H ??? docusate sodium, 100 mg, oral, Daily ??? enoxaparin, 40 mg, subcutaneous, Daily-2100 ??? fluticasone propionate, 2 spray, each nostril, Daily ??? [Held by Provider] furosemide, 40 mg, oral, BID ??? gabapentin, 400 mg, oral, Q8H ??? lidocaine, 1-2 mL, subcutaneous, Once ??? losartan, 50 mg, oral, Daily ??? metoprolol tartrate, 25 mg, oral, Q6H KELIN ??? pantoprazole DR, 40 mg, oral, Daily ??? sodium chloride 0.9%, 0.5-20 mL, intra-catheter, Q8H KELIN ??? sodium chloride 0.9%, 5-10 mL, intra-catheter, Q8H KELIN ??? [Held by Provider] spironolactone, 25 mg, oral, Daily ??? vancomycin, 15 mg/kg, intravenous, Q24H Infusions: ??? Lactated Ringer's, 30 mL/hr ??? Lactated Ringer's, 30 mL/hr PRN: albuterol HFA ??? HYDROmorphone ??? ondansetron ODT ??? oxyCODONE ??? sodium chloride 0.9% ??? sodium chloride 0.9% Vitals: 24hr Min/Max: Temp Min: 36 ??C (96.8 ??F) Max: 37.3 ??C (99.1 ??F) Pulse Min: 82 Max: 107 BP Min: 116/51 Max: 149/66 Resp Min: 12 Max: 23 SpO2 Min: 98 % Max: 100 % Most Recent: Vitals: 07/07/20 1300 BP: 132/68 Pulse: 82 Resp: 18 Temp: 36.1 ??C (97 ??F) SpO2: 98% Intake/Output Summary (Last 24 hours) at 07/07/2020 1827 Last data filed at 07/07/2020 1218 Gross per 24 hour Intake 1120 ml Output 50 ml Net 1070 ml Physical Exam: General: In no acute distress. Well-nourished and well-developed. Head: Normocephalic, atraumatic. Eyes: Sclera nonicteric. Pupils equal/round/reactive to light. Extraocular eye movements intact. ENT: No nasal discharge. Moist mucous membranes. Oropharynx nonerythematous, without exudates. Cardiac: Normal rate, regular rhythm. Pulmonary: No respiratory distress on 2L. Clear to auscultation bilaterally. Abdomen: Soft, nondistended, nontender. Extremities: No edema. Warm and well perfused. 2+ distal pulses. Neurologic: Alert and oriented to person/place/time. Psychiatric: Normal mood and affect, pleasant and conversant. Dermatologic: LLE wrapped. Lab/Diagnostic Review: Recent Results (from the past 24 hour(s)) Comprehensive metabolic panel Collection Time: 07/06/20 11:07 PM Result Value Ref Range Sodium 132 (L) 135 - 145 mmol/L Potassium, pl 4.9 3.3 - 4.9 mmol/L Chloride 93 (L) 97 - 110 mmol/L CO2 27 22 - 32 mmol/L Anion gap 12 2 - 15 mmol/L BUN 15 8 - 25 mg/dL Creatinine 0.77 0.60 - 1.10 mg/dL Glucose 133 70 - 199 mg/dL Calcium 9.3 8.5 - 10.3 mg/dL Bilirubin, total 0.3 0.1 - 1.2 mg/dL Protein, pl 7.5 6.5 - 8.5 g/dL Albumin 3.3 (L) 3.5 - 5.0 g/dL Alk phos 183 (H) 40 - 130 Units/L ALT 20 7 - 45 Units/L AST 26 10 - 45 Units/L CBC with auto differential Collection Time: 07/06/20 11:07 PM Result Value Ref Range WBC 24.7 (H) 3.8 - 9.9 K/cumm Hgb 11.0 (L) 11.9 - 15.5 g/dL Hct 33.6 (L) 35.6 - 45.5 % Plt 448 (H) 150 - 400 K/cumm MPV 9.5 9.1 - 12.3 fL RBC 3.62 (L) 3.90 - 5.20 M/cumm MCV 92.8 81.3 - 96.4 fL MCH 30.4 27.1 - 33.3 pg MCHC 32.7 32.3 - 35.7 g/dL RDW CV 11.8 11.1 - 14.9 % RDW SD 40.2 35.7 - 48.1 fL NRBC abs 0.00 0.00 - 0.01 K/cumm Manual Differential Collection Time: 07/06/20 11:07 PM Result Value Ref Range Differential Manual Cells Counted 115 Neutrophil abs 22.1 (H) 1.7 - 6.5 K/cumm Imm gran abs 0.6 (H) 0.0 - 0.1 K/cumm Lymphocyte abs 1.1 0.8 - 3.3 K/cumm Monocyte abs 0.9 (H) 0.2 - 0.8 K/cumm Neutrophil pct 89.5 % Lymphocyte pct 3.5 % Monocyte pct 3.5 % Neutrophilic metamyelocytes 2.6 % Variant lymphs 0.9 % Hypersegmentation Present (A) I have reviewed the laboratory results. Imaging Results: FL Fluoroscopy < 1 Hour The images from this study are not interpreted by Radiology. Please refer to the physician's procedure / OR operative note. XR Chest 1 View Narrative: EXAMINATION: 1 view chest radiograph Impression: Comparison chest radiograph 06/30/2019. The lungs are clear. There is no focal opacity or pulmonary edema. There is no pleural effusion or pneumothorax. Cardiomediastinal silhouette is stable with normal heart size and atherosclerotic calcification of the mildly tortuous thoracic aorta. Dictated by: Mathew Guzmán M.D. The radiology attending physician has personally reviewed this study, and had reviewed and/or edited this written report and agrees with it. Electronically signed by: Pura Rosas M.D. CT Tibia Fibula Left WO Contrast Narrative: EXAMINATION: CT LOWER LEG CALF LEFT WO CONTRAST HISTORY: 69-year-old with left periprosthetic fracture status post open reduction internal fixation, with prosthetic infection in 2019,, status post prior irrigations and debridement. Now with worsening edema and drainage. 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 Lucencies are noted about the distal aspect of the tibial component. Additional distal lateral valvular fixation plate, medial malleolus fixation screw, are also present. Topogram notes fixation plate on the distal right medial malleolus and radiodensity along the left great toe metatarsophalangeal joint. The tibial fracture is nonunited with slightly laterally angulated, with mild displacement of a posterior fracture fragment and overlying periosteal reaction. The fibular fracture is also nonunited, with slight lateral and posterior angulation, and full shaft width posterior displacement. There is mild skin thickening overlying the anterior and medial aspect of the proximal tibia, without definite organized fluid collection several however, beam hardening artifact from adjacent hardware mildly limits evaluation. Diffuse muscle atrophy. Impression: Periprosthetic fracture of the left proximal tibia and fibula, with changes of prior open reduction internal fixation. These fractures remain mildly displaced, mildly angulated, and nonunited, with overlying periosteal reaction, which can be seen in setting of infection. Dictated by: Adithya Terry M.D. The radiology attending physician has personally reviewed this study, and had reviewed and/or edited this written report and agrees with it. Electronically signed by: Lavell Lawson M.D. I have independently reviewed and interpreted - Tele: NSR ?? Assessment/Plan * Left lower extremity infection Assessment & Plan - History of open periprosthetic tibia/fibula fracture [...] - PT/OT - Nonweightbearing left lower extremity COVID-19 Assessment & Plan - Pt states she was actually tested [...] up. - COVID isolation per hospital protocol Hyponatremia Assessment & Plan - Pt with history of hypoNa (per report, baseline mid 120- low 130s). - Na 126 on admission. No AMS. - TSH wnl. Cortisol 17. - Diuretics were held and Na improved to 132. Restart when able. Chronic respiratory failure (CMS/[facility]) Assessment & Plan - Per pt 2/2 COPD. No sings of acute exacerbation. - Continue home flonase - Continue home albuterol prn - On baseline 4L O2 Moderate essential hypertension Assessment & Plan - Follows with cardiology - Continue home amlodipine, metoprolol, lasix, spironolactone - Switched olmesartan to losartan as not on formulary Code Status: Full Code Diet: Adult Diet Regular NPO Diet DVT Prophylaxis: SCD. Holding enoxaparin for procedure. Please call [phone] with any questions or concerns from 7am-7pm. Please call the [employer] phone after hours. Vianney Caballero MD 07/07/2020 6:27 PM COVERER * Op Note - Ethel Amaro MD - 07/06/2020 5:38 PM CST Date of Surgery: 07/06/2020 INDICATIONS: The patient is a 69-year-old female who has a history of a left open periprosthetic tibia fracture that has gone on to an infected nonunion. She had a sinus tract draining purulence up over the anterior aspect of her tibia, evidence of minimal to no bony healing, and an elevated white count concerning for systemic affects related to her infection. I recommended an irrigation and debridement with removal of implants. I discussed risks alternatives and benefits to surgery. All of herquestions were answered. PREOPERATIVE DIAGNOSIS: Left periprosthetic tibia fracture infected nonunion POSTOPERATIVE DIAGNOSIS: Same. PROCEDURE: 1. Sharp excisional debridement left leg, 20 x 3 cm, including skin, subcutaneous tissue, fascia, muscle, and bone 2. Removal of implants, deep, left tibia SURGEON: Ethel Amaro MD ASSIST: Brittany Jackson MD ANESTHESIA: general IV FLUIDS AND URINE: See anesthesia. ESTIMATED BLOOD LOSS: 50 mL. IMPLANTS: none placed (two plates and associated screws were removed) DRAINS: None. SPECIMENS: Left tibia bone cultures x3 sent for culture COMPLICATIONS: None apparent DESCRIPTION OF PROCEDURE: The patient was met in the intensive care unit where the surgical site was marked. She was then transferred directly to the operating room where she underwent general anesthesia. She was placed supine on the operating room table. The left lower extremity was prepped and draped in the usual sterile fashion. A time-out was held in accordance with hospital policy. I made a 20 cm incision along her previous surgical site and ellipsed out / excised the draining sinus tract which was within with that incision. The sinus tract was in continuity with the plate on the medial surface of the tibia and there was approximately 10-15 cc of surrounding purulence in continuity with the plates that were present.. I excised skin, subcutaneous tissue, fascia, muscle, and bone with the use of a scalpel and curette. Once both plates were exposed, all screws and both plates were removed. Each of the screw holes was curetted. Three specimens were sent to lab for culture. The fracture site along the anterior and medial aspects of the tibia was visualized and was not healed. Following debridement, I irrigated with 3 L of sterile saline. The wound was closed in layered fashion utilizing 2-0 Monocryls and 3-0 nylons. Sterile soft dressings and a well-padded short-leg splint were applied. The patient was then awakened from anesthesia and transferred to the PACU in stable condition. POSTOPERATIVE PLAN: The patient will be nonweightbearing on the left lower extremity at this time. The patient's case will be further discussed with my colleague who did her initial surgery, as well as with our arthroplasty colleagues in order to determine best next steps. We will continue to follow the cultures, and will defer antibiotic choice to our Infectious Disease team. Ethel Amaro MD I was present for all critical portions of the case which include exposure, debridement, and removal of implants. I was immediately available for non critical portions of the case. COVERER * Brief Op Note - Brittany Jackson MD - 07/06/2020 5:38 PM CST Operative Progress Note Surgical Team: Surgeon(s) and Role: * Ethel Amaro MD - Primary * Brittany Jackson MD - Resident - Assisting Anesthesiologist: Cas Reid MD SAMPLE PATTERNMAKER: Juan Whiteside CRNA Executive Account Manager: Ce Kam RN Executive Account Manager Relief: Frederick Nicole RN Scrub: Manpreet Aguilar ST DATE OF SURGERY : 07/06/2020 Preoperative Diagnosis: Pre-op Diagnosis * Leg skin lesion, left [L98.9] Postoperative Diagnosis: Post-op Diagnosis * Leg skin lesion, left [L98.9] Procedure(s): Procedure(s) (LRB): REMOVAL HARDWARE - TIBIA (Left) IRRIGATION AND DEBRIDEMENT - TIBIA (Left) Operative Findings: Left tibia periprosthetic infected nonunion Estimated Blood Loss: 50mL Intraoperative Fluids: 500 mls Specimens: No specimen collected in procedure Implants: Nothing was implanted during the procedure Blood/Blood Products Transfused: 0 mls Complications: None Condition on Discharge from the operating room was stable Brittany Jackson MD Date: 07/06/2020 Time: 7:17 PM Cosigned by Ethel Amaro MD at 07/07/2020 7:01 PM BODY COVERER COVERER COVERER * Hospital Course - Arianna Huynh MD - 07/06/2020 4:42 PM BODY COVERER Left leg infection- subcutaneous infection vs OM Pt has a history of open periprosthetic tibia/fibula fracture s/p definitive fixation and right medial malleolus fracture s/p ORIF (06/2019) complicated by poor wound healing s/p multiple courses of antibiotics.She presented to OSH with worsening tenderness, erythema and discharge from wound that had started prior to presentation. She was transferred given concern for OM. L Tib/fibula CT showed mildly displaced, angulated and nonunited fractures with findings concerning for infection. Ortho wasconsulted. Pt underwent I&D with removal of hardware on 07/06. Tissue cultures grew Proteus Quinn. Coli (pansusceptibile). Started on vancomycin and cefepime. ID following. 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 During surgery, bone cultures at the margin remain NGTD, so she was transitioned to Augmentin 875mg BID for planned 14 day course (first dose 07/12). Hard stop day after day 14. Pain control achieved with oxycodone 10mg q4h PRN, morphine 4mg q4h PRN and spot doses of dilaudid for breakthrough pain. She is discharged on Oxycontin 10mg BID and Oxycodone 5mg q4h PRN. ?? COVID-19 Per report, pt was tested for COVID at SNF 2 days. Per pt, residents get regularly tested for COVIDand only symptom was cough. On baseline home 4L O2. Deferred treatment as pt only mildly symptomatic and on baseline O2. ?? #Hyponatremia Pt with history of hyponatremia (per report, baseline mid 120- low 130s). Na 126 on admission. No AMS. TSH wnl. Cortisol 17. Treated with gentle NS IVF. Lasix and spironolactone held. At discharge, Na 129. #COPD with chronic hypoxemic respiratory failure Patient is on 2-4L at baseline at her facility. She has remained on this during her admission. Continued PRN albuterol ?? #COVID-19, resolved Diagnosed in 05/2020, was on quarantine period during admission to hospital. Course has been uncomplicated and she has not had any increase in her home O2 requirement ?? #hyponatremia Baseline seems to be around this (mid 120s to low 130s.) 126 on admission and hvoering around here.No AMS. TSH stable, cortisol 17 ?? #HTN Continue home amlodipine 10mg, losartan 50mg, metoprolol tartrate 25mg q6h, aldactone 25mg, holdinghome lasix (?) this admission. - Start 40mg Lasix once daily (also should help w hyperK), monitor Cr and lytes ?? #HLD Continued home atorvastatin 10mg #GERD Continued home protonix 40mg daily #Chronic pain Continued home gabapentin 400mg q8h, baclofen #Anxiety Continued home ativan 0.5mg q6h PRN, buspar? COVERER COVERER COVERER COVERER COVERER COVERER COVERER COVERER COVERER COVERER * Assessment & Plan Note - Og Cintron MD - 07/06/2020 11:58 AM CSTAssociated Problem(s): COVID-19 - recommend getting records from SNF to establish exact date of first (+) COVID test. - pt likely has completed days of isolation. COVERER * Assessment & Plan Note - Og Cintron MD - 07/06/2020 11:58 AM CSTAssociated Problem(s): Open displaced comminuted fracture of shaft of left tibia, type IIIA, IIIB, or IIIC 69 y.o. female w/PMH of porphyria (sulfa drugs contraindicated), HTN, GERD, bipolar and seizure disorder, sick sinus syndrome, COPD on 4L at baseline, recent COVID-19 (+), and complex L-tibia fx s/p ORIF [...] contact the ID [employer] Team PA at [phone] (desk) or [phone] (work cell) M-F, 7-3; or the Attending at [phone] (pager) with any questions or concerns. After hours, the ID fellow hydrogen plant operations manager can be reached at [phone]. COVERER COVERER COVERER COVERER COVERER COVERER COVERER COVERER COVERER COVERER COVERER COVERER COVERER * Assessment & Plan Note - Vianney Dia MD - 07/06/2020 7:34 AM BODY COVERER Associated Problem(s): UTI (urinary tract infection) (Deleted) - UA suggestive of UTI. Bacteria +, Yeast + - Urcx and Bcx pending - Start antimicrobials post-OR COVERER COVERER * Assessment & Plan Note - Vianney Dia MD - 07/06/2020 7:33 AM BODY COVERER Associated Problem(s): COVID-19 - Per report, pt was tested for COVID at SNF 2 days prior to admission (would be on 07/03). Per pt,residents get regularly tested for COVID and only symptom was cough. - On baseline home 4L O2 - Will defer treatment at this point as pt only mildly symptomatic and on baseline O2 - Telemetry and continuous SpO2 - COVID isolation per hospital protocol COVERER * Assessment & Plan Note - Vianney Dia MD - 07/06/2020 7:33 AM BODY COVERER Associated Problem(s): Moderate essential hypertension - Follows with cardiology - Continue home amlodipine, metoprolol, lasix, spironolactone - Switched olmesartan to losartan as not on formulary COVERER COVERER * Assessment & Plan Note - Vianney Dia MD - 07/06/2020 7:33 AM BODY COVERER Associated Problem(s): Chronic respiratory failure (HCC) - Per pt 2/2 COPD. No sings of acute exacerbation. - Continue home flonase - Continue home albuterol prn - On baseline 4L O2 COVERER * Assessment & Plan Note - Vianney Dia MD - 07/06/2020 7:27 AM BODY COVERER Associated Problem(s): Hyponatremia - Pt with history of hypoNa (per report, baseline mid 120- low 130s). - Na 126 on admission. No AMS. - TSH wnl. Cortisol 17. - NS IVF - CTM Na COVERER COVERER * Assessment & Plan Note - Vianney Dia MD - 07/06/2020 7:23 AM BODY COVERER Associated Problem(s): Left lower extremity infection - Cellulitis vs subcutaneous infection vs OM [...] 6 wk course of antibiotics. Appreciate recs. COVERER COVERER COVERER * Subjective & Objective - Vianney Dia MD - 07/06/2020 7:14 AM BODY COVERER Daily Progress Note Division of Hospital Medicine COVID Unit Name: [facility] Today: July 06, 2020 : 1950 Age: 69 y.o. female Admit: 07/05/2020 Bed: [id number] Subjective Chief complaint: L leg infection c/f OM, UTI, hyponatremia, COVID Interval History: - No acute events overnight. Remains afebrile and hemodynamically stable. Bcx NGTD. - L Tib/fibula CT showed mildly displaced, angulated and nonunited fractures with findings concerning for infection. - Plan for OR today?? - UA suggestive of UTI. Cultures pending. - Na 126 (per report, baseline high 120s- low 130s). Objective Medications: Scheduled: ??? acetaminophen, 1,000 mg, oral, Q8H ??? amLODIPine, 10 mg, oral, Daily ??? atorvastatin, 10 mg, oral, Nightly ??? [Held by Provider] baclofen, 2.5 mg, oral, TID with meals ??? busPIRone, 5 mg, oral, Daily ??? [Held by Provider] cefepime, 1,000 mg, intravenous, Q8H ??? docusate sodium, 100 mg, oral, Daily ??? [Held by Provider] enoxaparin, 40 mg, subcutaneous, Daily-2100 ??? fluticasone propionate, 2 spray, each nostril, Daily ??? furosemide, 40 mg, oral, BID ??? gabapentin, 400 mg, oral, Q8H ??? losartan, 50 mg, oral, Daily ??? metoprolol tartrate, 25 mg, oral, Q6H KELIN ??? pantoprazole DR, 40 mg, oral, Daily ??? sodium chloride 0.9%, 0.5-20 mL, intra-catheter, Q8H KELIN ??? spironolactone, 25 mg, oral, Daily ??? [Held by Provider] vancomycin, 15 mg/kg, intravenous, Q24H Infusions: PRN: albuterol HFA ??? ondansetron ODT ??? oxyCODONE ??? sodium chloride 0.9% Vitals: 24hr Min/Max: Temp Min: 36.8 ??C (98.2 ??F) Max: 37.1 ??C (98.8 ??F) Pulse Min: 72 Max: 96 BP Min: 126/62 Max: 133/53 Resp Min: 20 Max: 20 SpO2 Min: 96 % Max: 100 % Most Recent: Vitals: 07/06/20 1450 BP: Pulse: 72 Resp: Temp: SpO2: Intake/Output Summary (Last 24 hours) at 07/06/2020 1510 Last data filed at 07/06/2020 0505 Gross per 24 hour Intake -- Output 850 ml Net -850 ml Physical Exam: General: In no acute distress. Well-nourished and well-developed. Head: Normocephalic, atraumatic. Eyes: Sclera nonicteric. Pupils equal/round/reactive to light. Extraocular eye movements intact. ENT: No nasal discharge. Moist mucous membranes. Oropharynx nonerythematous, without exudates. Cardiac: Normal rate, regular rhythm. Pulmonary: No respiratory distress on 4L. Clear to auscultation bilaterally. Abdomen: Soft, nondistended, nontender. Extremities: No edema. Warm and well perfused. 2+ distal pulses. Neurologic: Alert and oriented to person/place/time. Psychiatric: Normal mood and affect, pleasant and conversant. Dermatologic: LLE wrapped. Lab/Diagnostic Review: Recent Results (from the past 24 hour(s)) Basic metabolic panel Collection Time: 07/05/20 6:13 PM Result Value Ref Range Sodium 126 (L) 135 - 145 mmol/L Potassium, pl 4.3 3.3 - 4.9 mmol/L Chloride 90 (L) 97 - 110 mmol/L CO2 29 22 - 32 mmol/L Anion gap 7 2 - 15 mmol/L BUN 16 8 - 25 mg/dL Creatinine 1.02 0.60 - 1.10 mg/dL Glucose 101 70 - 199 mg/dL Calcium 9.2 8.5 - 10.3 mg/dL Hepatic function panel Collection Time: 07/05/20 6:13 PM Result Value Ref Range Bilirubin, total 0.3 0.1 - 1.2 mg/dL Bilirubin, direct <0.2 0.1 - 0.3 mg/dL Protein, pl 7.4 6.5 - 8.5 g/dL Albumin 3.4 (L) 3.5 - 5.0 g/dL Alk phos 199 (H) 40 - 130 Units/L ALT 26 7 - 45 Units/L AST 34 10 - 45 Units/L Magnesium Collection Time: 07/05/20 6:13 PM Result Value Ref Range Magnesium 1.8 1.4 - 2.5 mg/dL Phosphorus Collection Time: 07/05/20 6:13 PM Result Value Ref Range Phosphorus, pl 3.9 2.3 - 4.5 mg/dL Lactate Collection Time: 07/05/20 6:13 PM Result Value Ref Range Lactate 1.0 0.7 - 2.0 mmol/L Erythrocyte sedimentation rate Collection Time: 07/05/20 6:13 PM Result Value Ref Range Erythrocyte sedimentation rate 100 (H) 1 - 30 mm/hr CRP (acute phase) Collection Time: 07/05/20 6:13 PM Result Value Ref Range CRP 236.6 (H) <=10.0 mg/L CBC with auto differential Collection Time: 07/05/20 6:13 PM Result Value Ref Range WBC 24.0 (H) 3.8 - 9.9 K/cumm Hgb 11.1 (L) 11.9 - 15.5 g/dL Hct 32.5 (L) 35.6 - 45.5 % Plt 420 (H) 150 - 400 K/cumm MPV 9.6 9.1 - 12.3 fL RBC 3.57 (L) 3.90 - 5.20 M/cumm MCV 91.0 81.3 - 96.4 fL MCH 31.1 27.1 - 33.3 pg MCHC 34.2 32.3 - 35.7 g/dL RDW CV 11.8 11.1 - 14.9 % RDW SD 39.4 35.7 - 48.1 fL NRBC abs 0.00 0.00 - 0.01 K/cumm Protime-INR Collection Time: 07/05/20 6:13 PM Result Value Ref Range PT 14.6 (H) 8.6 - 13.0 sec INR 1.3 (H) 0.8 - 1.2 D-dimer, quantitative Collection Time: 07/05/20 6:13 PM Result Value Ref Range D-Dimer 1,324 (H) <=499 ng/mL FEU Differential, auto Collection Time: 07/05/20 6:13 PM Result Value Ref Range Neutrophil abs 19.3 (H) 1.7 - 6.5 K/cumm Imm gran abs 1.6 (H) 0.0 - 0.1 K/cumm Lymphocyte abs 1.5 0.8 - 3.3 K/cumm Monocyte abs 1.4 (H) 0.2 - 0.8 K/cumm Eosinophil abs 0.2 0.0 - 0.5 K/cumm Basophil abs 0.1 0.0 - 0.1 K/cumm Neutrophil pct 80.3 % Imm gran pct 6.5 % Lymphocyte pct 6.2 % Monocyte pct 5.9 % Eosinophil pct 0.7 % Basophil pct 0.4 % Hemoglobin A1c Collection Time: 07/05/20 6:13 PM Result Value Ref Range Hgb A1C 5.3 4.0 - 5.6 % Estimated Average Glucose 105 mg/dL aPTT Collection Time: 07/05/20 9:22 PM Result Value Ref Range aPTT 32 25 - 37 sec Type and screen Collection Time: 07/05/20 9:22 PM Result Value Ref Range ABO Rh A Positive Triston, indirect Negative Blood culture Blood Collection Time: 07/05/20 9:22 PM Specimen: Blood Result Value Ref Range Report Preliminary Report: No growth to date. Blood culture Blood Collection Time: 07/05/20 9:22 PM Specimen: Blood Result Value Ref Range Report Preliminary Report: No growth to date. Osmolality, blood Collection Time: 07/05/20 9:22 PM Result Value Ref Range Osmo 268 (L) 275 - 300 mOsm/kg TSH reflex to free T4 Collection Time: 07/05/20 9:22 PM Result Value Ref Range TSH 1.06 0.30 - 4.20 mcIUnit/mL Cortisol Collection Time: 07/05/20 9:22 PM Result Value Ref Range Cortisol 17.9 3.7 - 19.4 mcg/dL Osmolality, urine Collection Time: 07/05/20 11:19 PM Result Value Ref Range Osmo, ur 242 mOsm/kg Sodium, urine, random Collection Time: 07/05/20 11:19 PM Result Value Ref Range Sodium, ur <20 mmol/L Urinalysis reflex to microscopic and culture Urine Collection Time: 07/05/20 11:19 PM Specimen: Urine Result Value Ref Range Color, ur Yellow Yellow Clarity, ur Cloudy (A) Clear Specific gravity, ur 1.011 1.010 - 1.025 pH, urine 6 Protein, ur ql Negative Negative Glucose, ur ql Negative Negative Ketones, ur Trace Negative Bilirubin, ur Negative Negative Blood, ur Negative Negative Urobilinogen, ur <2.0 <2.0 mg/dL Nitrite, ur Negative Negative Leukocyte esterase, ur 3+ (A) Negative UA reflex comment Reflex to microscopic UA will be performed. Urinalysis, microscopic only Collection Time: 07/05/20 11:19 PM Result Value Ref Range WBC, ur >50 (A) 0 - 5 /HPF RBC, ur 21-50 (A) 0 - 2 /HPF Epithelial cells, squamous, ur 1-5 0 - 5 /HPF Bacteria, ur Trace (A) Yeast, ur 2+ (A) Mucous, ur Present (A) Amorphous crystals, ur Trace (A) Culture Reflex Comment Reflex to urine culture will be performed. I have reviewed the laboratory results. Imaging Results: XR Chest 1 View Narrative: EXAMINATION: 1 view chest radiograph Impression: Comparison chest radiograph 06/30/2019. The lungs are clear. There is no focal opacity or pulmonary edema. There is no pleural effusion or pneumothorax. Cardiomediastinal silhouette is stable with normal heart size and atherosclerotic calcification of the mildly tortuous thoracic aorta. Dictated by: Mathew Guzmán M.D. The radiology attending physician has personally reviewed this study, and had reviewed and/or edited this written report and agrees with it. Electronically signed by: Pura Rosas M.D. CT Tibia Fibula Left WO Contrast Narrative: EXAMINATION: CT LOWER LEG CALF LEFT WO CONTRAST HISTORY: 69-year-old with left periprosthetic fracture status post open reduction internal fixation, with prosthetic infection in 2019,, status post prior irrigations and debridement. Now with worsening edema and drainage. 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 Lucencies are noted about the distal aspect of the tibial component. Additional distal lateral valvular fixation plate, medial malleolus fixation screw, are also present. Topogram notes fixation plate on the distal right medial malleolus and radiodensity along the left great toe metatarsophalangeal joint. The tibial fracture is nonunited with slightly laterally angulated, with mild displacement of a posterior fracture fragment and overlying periosteal reaction. The fibular fracture is also nonunited, with slight lateral and posterior angulation, and full shaft width posterior displacement. There is mild skin thickening overlying the anterior and medial aspect of the proximal tibia, without definite organized fluid collection several however, beam hardening artifact from adjacent hardware mildly limits evaluation. Diffuse muscle atrophy. Impression: Periprosthetic fracture of the left proximal tibia and fibula, with changes of prior open reduction internal fixation. These fractures remain mildly displaced, mildly angulated, and nonunited, with overlying periosteal reaction, which can be seen in setting of infection. Dictated by: Adithya Terry M.D. The radiology attending physician has personally reviewed this study, and had reviewed and/or edited this written report and agrees with it. Electronically signed by: Lavell Lawson M.D. I have independently reviewed and interpreted - Tele: NSR - L tib/fib CT: Fractures of left proximal tibia and fibula fractures displaced ?? Assessment/Plan * Left leg wound Assessment & Plan - Cellulitis vs subcutaneous infection vs OM [...] 6 wk course of antibiotics. Appreciate recs. COVID-19 Assessment & Plan - Per report, pt was tested for COVID at SNF 2 days prior to admission (would be on 07/03). Per pt,residents get regularly tested for COVID and only symptom was cough. - On baseline home 4L O2 - Will defer treatment at this point as pt only mildly symptomatic and on baseline O2 - Telemetry and continuous SpO2 - COVID isolation per hospital protocol Hyponatremia Assessment & Plan - Pt with history of hypoNa (per report, baseline mid 120- low 130s). - Na 126 on admission. No AMS. - TSH wnl. Cortisol 17. - NS IVF - CTM Na UTI (urinary tract infection) Assessment & Plan - UA suggestive of UTI. Bacteria +, Yeast + - Urcx and Bcx pending - Start antimicrobials post-OR Chronic respiratory failure ([facility]) Assessment & Plan - Per pt 2/2 COPD. No sings of acute exacerbation. - Continue home flonase - Continue home albuterol prn - On baseline 4L O2 Moderate essential hypertension Assessment & Plan - Follows with cardiology - Continue home amlodipine, metoprolol, lasix, spironolactone - Switched olmesartan to losartan as not on formulary Code Status: Full Code Diet: NPO Diet DVT Prophylaxis: SCD. Holding enoxaparin for procedure. Please call [phone] with any questions or concerns from 7am-7pm. Please call the cross cover phone after hours. Vianney Caballero MD 07/06/2020 3:10 PM COVERER COVERER * Plan of Care - Lili Marroquin RN - 07/06/2020 2:53 AM CST Problem: Lack of Knowledge: Goal: Ability to state ways to decrease the risk of falls will improve Outcome: Progressing Problem: Safety: Goal: Will remain free from falls Outcome: Progressing Goal: Will remain free from injury from falls Outcome: Progressing Goal: Will remain free from falls and injury in home environment Outcome: Progressing Problem: Lack of Knowledge: Goal: Ability to state signs and symptoms to report to health care provider will improve Outcome: Progressing Goal: Understanding of ways to prevent infection will improve Outcome: Progressing Problem: Nutritional: Goal: Nutritional status will improve Outcome: Progressing Problem: Physical Regulation: Goal: Diagnostic test results will improve Outcome: Progressing Goal: Will remain free from infection Outcome: Progressing Goal: Ability to maintain vital signs within normal range will improve Outcome: Progressing Problem: Respiratory: Goal: Ability to maintain normal respiratory secretions will improve Outcome: Progressing Problem: Skin Integrity: Goal: Demonstration of wound healing without infection will improve Outcome: Progressing Goal: Complications related to intravenous access or infusion will be avoided or minimized Outcome: Progressing Problem: Lack of Knowledge: Goal: Knowledge of the prescribed therapeutic regimen will improve Outcome: Progressing Problem: Activity: Goal: Ability to ambulate will improve Outcome: Progressing Goal: Muscle strength will improve Outcome: Progressing Goal: Range of joint motion will improve Outcome: Progressing Problem: Physical Regulation: Goal: Ability to avoid complications of mobility impairment will improve Outcome: Progressing Problem: Safety: Goal: Ability to appropriately use an adaptive device for ambulation will improve Outcome: Progressing Goal: Ability to safely and independently change position in bed will improve Outcome: Progressing Goal: Ability to safely transfer will improve Outcome: Progressing Goals: Clinical Goals for the Shift: patient will remain hemodynamically stable Summary: Patient verbalized understanding of care plan and is participating in care. Will continue to monitor patient's progress. COVERER * Assessment & Plan Note - Vianney Dia MD - 07/05/2020 6:01 PM BODY COVERER Associated Problem(s): Closed displaced bimalleolar fracture of right lower leg - As elsewhere COVERER * Assessment & Plan Note - Vianney Dia MD - 07/05/2020 6:00 PM BODY COVERER Associated Problem(s): Chronic respiratory failure (HCC) - Per pt 2/2 COPD. No sings of acute exacerbation. - Continue home flonase - Continue home albuterol prn - On baseline 4L O2 COVERER COVERER * Plan of Care - Janis Crabtree RN - 07/05/2020 6:00 PM BODY COVERER Goals: Clinical Goals for the Shift: admission Problem: Lack of Knowledge: Goal: Ability to state ways to decrease the risk of falls will improve Outcome: Progressing Problem: Safety: Goal: Will remain free from falls Outcome: Progressing Goal: Will remain free from injury from falls Outcome: Progressing Goal: Will remain free from falls and injury in home environment Outcome: Progressing Problem: Lack of Knowledge: Goal: Ability to state signs and symptoms to report to health care provider will improve Outcome: Progressing Goal: Understanding of ways to prevent infection will improve Outcome: Progressing Problem: Nutritional: Goal: Nutritional status will improve Outcome: Progressing Problem: Physical Regulation: Goal: Diagnostic test results will improve Outcome: Progressing Goal: Will remain free from infection Outcome: Progressing Goal: Ability to maintain vital signs within normal range will improve Outcome: Progressing Problem: Respiratory: Goal: Ability to maintain normal respiratory secretions will improve Outcome: Progressing Problem: Skin Integrity: Goal: Demonstration of wound healing without infection will improve Outcome: Progressing Goal: Complications related to intravenous access or infusion will be avoided or minimized Outcome: Progressing Problem: Lack of Knowledge: Goal: Knowledge of the prescribed therapeutic regimen will improve Outcome: Progressing Problem: Activity: Goal: Ability to ambulate will improve Outcome: Progressing Goal: Muscle strength will improve Outcome: Progressing Goal: Range of joint motion will improve Outcome: Progressing Problem: Physical Regulation: Goal: Ability to avoid complications of mobility impairment will improve Outcome: Progressing Problem: Safety: Goal: Ability to appropriately use an adaptive device for ambulation will improve Outcome: Progressing Goal: Ability to safely and independently change position in bed will improve Outcome: Progressing Goal: Ability to safely transfer will improve Outcome: Progressing Summary: Patient is progressing towards all goals. Patient reports pain 10/10. Open wound with moderate drainage. Plan for labs and admission orders. Will continue to monitor patient's progress. COVERER * Assessment & Plan Note - Vianney Dia MD - 07/05/2020 5:58 PM BODY COVERER Associated Problem(s): Open displaced comminuted fracture of shaft of left tibia, type IIIA, IIIB, or IIIC - L tibia and R ankle fractures s/p BRENNA in 06/2020 - Complicated by poor healing and multiple infections of L anterior leg wound - Pt of Dr. Shoemaker COVERER * Assessment & Plan Note - Vianney Dia MD - 07/05/2020 5:57 PM BODY COVERER Associated Problem(s): Moderate essential hypertension - Follows with cardiology - Continue home amlodipine, metoprolol, lasix, spironolactone - Switch olmesartan to losartan as not on formulary COVERER * Assessment & Plan Note - Vianney Dia MD - 07/05/2020 4:16 PM BODY COVERER Associated Problem(s): Left lower extremity infection - Cellulitis vs subcutaneous infection vs OM [...] threshold to start antibiotics. - Consult ortho COVERER COVERER COVERER COVERER * Assessment & Plan Note - Vianney Dia MD - 07/05/2020 4:14 PM BODY COVERER Associated Problem(s): COVID-19 - Per report, pt was tested for COVID at SNF 2 days prior to admission (would be on 07/03). States residents get regularly tested for COVID and only symptoms was cough. - On baseline home 4L O2 - Will defer treatment at this point as pt asymptomatic and on baseline O2 - Telemetry and continuous SpO2 - COVID isolation per hospital protocol COVERER COVERER * Subjective & Objective - Vianney Dia MD - 07/05/2020 4:13 PM BODY COVERER History and Physical Division of Hospital Medicine Name: Celestina Ansari Today: July 05, 2020 : 1950 Age: 69 y.o. female Subjective The patient is a 69 y.o. female with chief complaint of L leg wound, COVID. HPI: Celestina Ansari is a 69 y.o. female with h/o traumatic open periprosthetic tibia/fibula fracture s/p ORIF (06/30/2019) and right medial malleolus fracture s/p ORIF (06/2019) complicated by poor wound healing s/p multiple courses of antibiotics, paroxysmal atrial fibrillation in setting of MRSA bacteremia (08/2019), chronic respiratory failure on 4L per pt 2/2 COPD and HTN presented to OSH for worsening swelling, tenderness and erythema of L leg wound. Pt also reports findings started 2 days agoas an abscess that later burst revealing purulent discharge (present in picture she showed me). States she has had multiple infections in this same site and recently completed a course of clindamycin. Denies fevers, shills, night sweats. At OSH, pt was afebrile and hemodynamically stable. CXR read as concerning for OM. Per report, she received vancomycin x 1 and was transferred to [facility]. Also per report, pt was hyponatremic Na 123 (baseline 126-low 130s) but lab results not included in [facility] paper chart. Of note, pt recently diagnosed with COVID at [facility] (per report 2 days prior to admission). Pt states she was having a cough and that at the SNF they regularly test patients. Denies fevers, chills, shortness of breath, abd pain, diarrhea, nausea, loss of smell or taste. She satting well on baseline 4LNC. I reviewed pt's Epic chart and paper chart from [facility]. Past Medical History: Diagnosis Date ??? Asthma [...] Right 08/2009 ??? TOE FUSION Left 08/1994 HOME MEDICATIONS : Aerochamber Plus Flow-Vu spacer albuterol HFA (PROVENTIL HFA,VENTOLIN HFA,PROAIR HFA) 90 mcg/actuation inhaler ALPRAZolam (XANAX) 0.25 mg tablet amLODIPine (NORVASC) 10 mg tablet atorvastatin (LIPITOR) 10 mg tablet baclofen (LIORESAL) 5 mg tablet busPIRone (BUSPAR) 5 mg tablet cholecalciferol (cholecalciferol) 400 unit capsule docusate sodium (COLACE) 100 mg capsule enoxaparin (LOVENOX) 40 mg/0.4 mL syringe famciclovir (FAMVIR) 250 mg tablet fluticasone propionate (FLONASE) 50 mcg/actuation nasal spray fluticasone propionate (FLOVENT HFA) 110 mcg/actuation inhaler furosemide (LASIX) 40 mg tablet gabapentin (NEURONTIN) 400 mg capsule ipratropium-albuteroL (DUO-NEB) 0.5-2.5 mg/3 mL nebulizer solution lidocaine (LIDODERM) 5 % LORazepam (ATIVAN) 0.5 mg tablet metoprolol (LOPRESSOR) 25 mg tablet Nyamyc powder olmesartan (BENICAR) 40 mg tablet ondansetron (ZOFRAN) 4 mg tablet oxyCODONE (ROXICODONE) 10 mg tablet oxyCODONE-acetaminophen (PERCOCET) 5-325 mg per tablet pantoprazole DR (PROTONIX) 40 mg EC tablet primidone (MYSOLINE) 50 mg tablet spironolactone (ALDACTONE) 25 mg tablet vitamin E (AQUASOL E) 400 unit capsule cephalexin (KEFLEX) 500 mg capsule doxycycline 100 mg tablet Allergies Allergen Reactions ??? Fish Containing Products Anaphylaxis ??? Iodine Unknown ??? Latex Unknown ??? Dunbar-3 Fatty Acids Unknown ??? Other Unknown seafood ??? Sulfa (Sulfonamide Antibiotics) Unknown ??? Valium [Diazepam] Unknown Social History Tobacco Use ??? Smoking status: Never Smoker ??? Smokeless tobacco: Never Used ??? Tobacco comment: Patient does not smoke Substance Use Topics ??? Alcohol use: Not Currently Family History Problem Relation Age of Onset ??? Heart disease Mother ??? Diabetes Mother ??? Emphysema Father ??? Diabetes Father ??? Diabetes Brother Family History reviewed and non-contributory. Review of Systems All other systems were reviewed and are negative except for L leg tenderness, erythema and cough Objective Vitals: 24hr Min/Max: Temp Min: 36.9 ??C (98.4 ??F) Max: 36.9 ??C (98.4 ??F) Pulse Min: 96 Max: 96 BP Min: 133/62 Max: 133/62 Resp Min: 20 Max: 20 SpO2 Min: 100 % Max: 100 % Most Recent Vitals: Vitals: 12/11/20 1533 BP: 133/62 Pulse: 96 Resp: 20 Temp: 36.9 ??C (98.4 ??F) SpO2: 100% No intake or output data in the 24 hours ending 07/05/20 1802 Physical exam: General: In no acute distress. Well-nourished and well-developed. Head: Normocephalic, atraumatic. Eyes: Sclera nonicteric. Pupils equal/round/reactive to light. Extraocular eye movements intact. ENT: No nasal discharge. Moist mucous membranes. Oropharynx nonerythematous, without exudates. Cardiac: Normal rate, regular rhythm. Pulmonary: No respiratory distress on 4L. Clear to auscultation bilaterally. Abdomen: Soft, nondistended, nontender. Extremities: No edema. Warm and well perfused. 2+ distal pulses. Neurologic: Alert and oriented to person/place/time. . Psychiatric: Normal mood and affect, pleasant and conversant. Dermatologic: Flat lesion in proximal anterior left leg with minimal serosanguinous discharge. No bone appreciated. Erythematous and leg tender to palpation. Lab/Diagnostic Review: No results found for this or any previous visit (from the past 24 hour(s)). I have reviewed the laboratory results. Imaging Results: XR Ankle Right 3 or More Views Narrative: EXAMINATION: XR TIBIA FIBULA LEFT 2 VIEWS, XR ANKLE RIGHT 3 OR MORE VIEWS HISTORY: Left tibia fracture FINDINGS: 2 views of the left tibia and fibula and 3 nonweightbearing views of the right ankle are submitted for interpretation with comparison made to 02/01/2020. There is a healing periprosthetic proximal left tibia fracture with apex medial angulation, unchanged. This fracture is fixated with medial plate and screws, which are intact. Left knee arthroplasty is partially visualized. There is a fixated healed left medial malleolus and distal left fibula fracture. There is a healing mildly displaced and angulated proximal left fibular shaft fracture. There is a reduced and internally fixated healed right medial malleolus fracture. There is heterotopic ossification at the tip of the right fibula from prior sprain. There is soft tissue swelling about the right ankle, unchanged. No acute fracture. Impression: 1. Healing left proximal tibia periprosthetic fracture with unchanged medial apex angulation. 2. Healing mildly displaced and angulated proximal left fibula fracture. 3. Healed right medial malleolus fracture. Electronically signed by: Ramez Bhandari M.D. XR Tibia Fibula Left 2 Views Narrative: EXAMINATION: XR TIBIA FIBULA LEFT 2 VIEWS, XR ANKLE RIGHT 3 OR MORE VIEWS HISTORY: Left tibia fracture FINDINGS: 2 views of the left tibia and fibula and 3 nonweightbearing views of the right ankle are submitted for interpretation with comparison made to 02/01/2020. There is a healing periprosthetic proximal left tibia fracture with apex medial angulation, unchanged. This fracture is fixated with medial plate and screws, which are intact. Left knee arthroplasty is partially visualized. There is a fixated healed left medial malleolus and distal left fibula fracture. There is a healing mildly displaced and angulated proximal left fibular shaft fracture. There is a reduced and internally fixated healed right medial malleolus fracture. There is heterotopic ossification at the tip of the right fibula from prior sprain. There is soft tissue swelling about the right ankle, unchanged. No acute fracture. Impression: 1. Healing left proximal tibia periprosthetic fracture with unchanged medial apex angulation. 2. Healing mildly displaced and angulated proximal left fibula fracture. 3. Healed right medial malleolus fracture. Electronically signed by: Ramez Bhandari M.D. Assessment/Plan * Left leg wound Assessment & Plan - History of open periprosthetic tibia/fibula fracture [...] threshold to start antibiotics. - Consult ortho COVID-19 Assessment & Plan - Per report, pt was tested for COVID at [facility] 2 days prior to admission (would be on 07/03). States residents get regularly tested for COVID and only symptoms was cough. - On baseline home 4L O2 - Will defer treatment at this point as pt asymptomatic and on baseline O2 - Telemetry and continuous SpO2 - COVID isolation per hospital protocol Closed displaced bimalleolar fracture of right lower leg Assessment & Plan - As elsewhere Chronic respiratory failure (CMS/HCC) Assessment & Plan - Per pt 2/2 COPD. No sings of acute exacerbation. - Continue home flonase - Continue home albuterol prn - On baseline 4L O2 Open displaced comminuted fracture of shaft of left tibia, type IIIA, IIIB, or IIIC Assessment & Plan - L tibia and R ankle fractures s/p BRENNA in 06/2020 - Complicated by poor healing and multiple infections of L anterior leg wound - Pt of Dr. Shoemaker Moderate essential hypertension Assessment & Plan - Follows with cardiology - Continue home amlodipine, metoprolol, lasix, spironolactone - Switch olmesartan to losartan as not on formulary Code Status: Full Code Diet: Adult Diet Restricted; 2 GM Sodium DVT Prophylaxis: lovenox Please call [phone] with any questions or concerns from 7 am to 7pm. Call the [employer] cover phone after hours. Vianney Caballero MD 07/05/2020 6:02 PM COVERER COVERER COVERER COVERER documented in this encounter Plan of Treatment Scheduled Orders Name Type Priority Associated Diagnoses Orde r Schedule Urinalysis reflex to microscopic and culture Urine Microbiology Routine Once for 1 Occurrences starting 07/05/2020 until 07/05/2020 documented as of this encounter Procedures Procedure Name Priority Date/Time Associated Diagnosis Comments DIFFERENTIAL AUTO Timed 07/12/2020 9:3 8 AM BODY COVERER CBC WITH AUTO DIFFERENTIAL Timed 07/12/2020 9:38 AM BODY COVERER BASIC METABOLIC PANEL Timed 07/12/2020 9:38 AM BODY COVERER DIFFERENTIAL AUTO Routine 07/11/2020 5:3 1 PM BODY COVERER CBC WITH AUTO DIFFERENTIAL Routine 07/11/2020 5:31 PM BODY COVERER MAGNESIUM Routine 07/11/2020 5:31 PM BODY COVERER VANCOMYCIN LEVEL TROUGH Timed 07/11/20 20 5:31 PM BODY COVERER COMPREHENSIVE METABOLIC PANEL Routine 07/11/2020 5:31 PM BODY COVERER DIFFERENTIAL AUTO Routine 07/10/2020 9:0 4 PM BODY COVERER CBC WITH AUTO DIFFERENTIAL Routine 07/10/2020 9:04 PM BODY COVERER COMPREHENSIVE METABOLIC PANEL Routine 07/10/2020 9:04 PM BODY COVERER DIFFERENTIAL AUTO Routine 07/09/2020 9:0 3 PM BODY COVERER CBC WITH AUTO DIFFERENTIAL Routine 07/09/2020 9:03 PM BODY COVERER COMPREHENSIVE METABOLIC PANEL Routine 07/09/2020 9:03 PM BODY COVERER POCT GLUCOSE DEVICE Routine 07/09/2020 9 :02 PM BODY COVERER POCT GLUCOSE DEVICE Routine 07/09/2020 4 :34 PM BODY COVERER DIFFERENTIAL AUTO Routine 07/08/2020 5:5 7 PM BODY COVERER CBC WITH AUTO DIFFERENTIAL Routine 07/08/2020 5:57 PM BODY COVERER BLOOD CULTURE STAT 07/08/2020 5:57 PM BODY COVERER BLOOD CULTURE STAT 07/08/2020 5:57 PM BODY COVERER VANCOMYCIN LEVEL TROUGH Timed 07/08/20 20 5:57 PM BODY COVERER COMPREHENSIVE METABOLIC PANEL Routine 07/08/2020 5:57 PM BODY COVERER TISSUE AEROBIC AND ANAEROBIC CULTURE AND GRAM STAIN Routine 07/08/2020 1:18 PM BODY COVERER FL FLUOROSCOPY < 1 HOUR (STATISTICAL ONLY) IP Routine 07/08/2020 12:52 PM BODY COVERER SURGICAL PATHOLOGY Routine 07/08/2020 12:18 PM BODY COVERER Leg skin lesion, left XR TIBIA FIBULA LEFT 2 VIEWS IP Routine 07/08/2020 1:04 AM BODY COVERER ECG 12-LEAD Routine 07/07/2020 11:59 PM BODY COVERER DIFFERENTIAL AUTO Routine 07/07/2020 10:06 PM BODY COVERER CBC WITH AUTO DIFFERENTIAL Routine 07/07/2020 10:06 PM BODY COVERER TYPE AND SCREEN STAT 07/07/2020 10:06 PM BODY COVERER COMPREHENSIVE METABOLIC PANEL Routine 07/07/2020 10:06 PM BODY COVERER CBC WITH AUTO DIFFERENTIAL Routine 07/06/2020 11:07 PM BODY COVERER MANUAL DIFFERENTIAL Routine 07/06/2020 11:07 PM BODY COVERER COMPREHENSIVE METABOLIC PANEL Routine 07/06/2020 11:07 PM BODY COVERER FL FLUOROSCOPY < 1 HOUR IP Routine 07/06/20 20 6:10 PM BODY COVERER TISSUE AEROBIC AND ANAEROBIC CULTURE AND GRAM STAIN Routine 07/06/2020 6:07 PM BODY COVERER MYCOLOGY (FUNGAL) CULTURE Routine 07/06/2020 6:07 PM BODY COVERER MYCOBACTERIOLOGY AFB CULTURE Routine 07/06/2020 6:07 PM BODY COVERER TISSUE AEROBIC AND ANAEROBIC CULTURE AND GRAM STAIN Routine 07/06/2020 5:59 PM BODY COVERER MYCOLOGY (FUNGAL) CULTURE Routine 07/06/2020 5:59 PM BODY COVERER MYCOBACTERIOLOGY AFB CULTURE Routine 07/06/2020 5:59 PM BODY COVERER TISSUE AEROBIC AND ANAEROBIC CULTURE AND GRAM STAIN Routine 07/06/2020 5:56 PM BODY COVERER MYCOLOGY (FUNGAL) CULTURE Routine 07/06/2020 5:56 PM BODY COVERER MYCOBACTERIOLOGY AFB CULTURE Routine 07/06/2020 5:56 PM BODY COVERER IRRIGATION AND DEBRIDEMENT ? TIBIA 07/06/2020 4:49 PM BODY COVERER Leg skin lesion, left REMOVAL HARDWARE - TIBIA/FIBULA 07/06/2020 4:49 PM BODY COVERER Leg skin lesion, left CT LOWER LEG CALF LEFT WO CONTRAST ED Urgent/IP Urgent 07/06/2020 6:42 AM BODY COVERER URINALYSIS AND REFLEX TO MICROSCOPIC AND CULTURE STAT 07/05/2020 11:19 PM BODY COVERER SODIUM, URINE, RANDOM Routine 07/05/2020 11:19 PM BODY COVERER OSMOLALITY, URINE Routine 07/05/2020 11:19 PM BODY COVERER URINALYSIS, MICROSCOPIC ONLY STAT 07/05/2020 11:19 PM BODY COVERER URINE CULTURE STAT 07/05/2020 11:19 PM BODY COVERER THYROID FUNCTION CASCADE Routine 07/05/2020 9:22 PM BODY COVERER BLOOD CULTURE Routine 07/05/2020 9:22 PM BODY COVERER BLOOD CULTURE Routine 07/05/2020 9:22 PM BODY COVERER APTT Routine 07/05/2020 9:22 PM BODY COVERER TYPE AND SCREEN Timed 07/05/2020 9:22 PM BODY COVERER OSMOLALITY, BLOOD Routine 07/05/2020 9:2 2 PM BODY COVERER CORTISOL Timed 07/05/2020 9:22 PM BODY COVERER ECG 12-LEAD Routine 07/05/2020 7:29 PM BODY COVERER XR TRANSFER OF OUTSIDE FILMS Routine 07/05/2020 6:15 PM BODY COVERER Diagnosis unknown LACTATE Routine 07/05/2020 6:13 PM BODY COVERER DIFFERENTIAL AUTO Routine 07/05/2020 6:1 3 PM BODY COVERER CBC WITH AUTO DIFFERENTIAL Routine 07/05/2020 6:13 PM BODY COVERER ERYTHROCYTE SEDIMENTATION RATE Routine 07/05/2020 6:13 PM BODY COVERER PROTIME-INR Routine 07/05/2020 6:13 PM BODY COVERER D-DIMER, QUANTITATIVE Routine 07/05/2020 6:13 PM BODY COVERER CRP (ACUTE PHASE) Routine 07/05/2020 6:1 3 PM BODY COVERER PHOSPHORUS Routine 07/05/2020 6:13 PM BODY COVERER MAGNESIUM Routine 07/05/2020 6:13 PM BODY COVERER HEMOGLOBIN A1C Routine 07/05/2020 6:13 PM BODY COVERER HEPATIC FUNCTION PANEL Routine 0 6:13 PM BODY COVERER BASIC METABOLIC PANEL Routine 07/05/2020 6:13 PM BODY COVERER XR CHEST 1 VIEW IP Routine 07/05/2020 5:22 PM BODY COVERER COVID-19 CORONAVIRUS RNA Routine 06/21/2020 documented in this encounter Results * (ABNORMAL) Differential, auto (07/12/2020 9:38 AM BODY COVERER) Neutrophil abs 8.2(H) 1.7 - 6.5 K/cumm [facility] Imm gran abs 0.6(H) 0.0 - 0.1 K/cumm [facility] Lymphocyte abs 2.5 0.8 - 3.3 K/cumm [facility] Monocyte abs 1.2(H) 0.2 - 0.8 K/cumm [facility] Eosinophil abs 0.2 0.0 - 0.5 K/cumm [facility] Basophil abs 0.1 0.0 - 0.1 K/cumm [facility] Neutrophil pct 63.7 % [facility] Comment: Interpretive Data Percent cell count reference ranges are not reported, since discordance with absolute values may lead to misinterpretation of CBC data. Current Interpretive Data was last revised on 2017. Imm gran pct 4.7 % [facility] Comment: Interpretive Data Percent cell count reference ranges are not reported, since discordance with absolute values may lead to misinterpretation of CBC data. Current Interpretive Data was last revised on 2017. Lymphocyte pct 19.6 % [facility] Comment: Interpretive Data Percent cell count reference ranges are not reported, since discordance with absolute values may lead to misinterpretation of CBC data. Current Interpretive Data was last revised on 2017. Monocyte pct 9.5 % [facility] Comment: Interpretive Data Percent cell count reference ranges are not reported, since discordance with absolute values may lead to misinterpretation of CBC data. Current Interpretive Data was last revised on 2017. Eosinophil pct 1.9 % [facility] Comment: Interpretive Data Percent cell count reference ranges are not reported, since discordance with absolute values may lead to misinterpretation of CBC data. Current Interpretive Data was last revised on 2017. Basophil pct 0.6 % [facility] Comment: Interpretive Data Percent cell count reference ranges are not reported, since discordance with absolute values may lead to misinterpretation of CBC data. Current Interpretive Data was last revised on 2017. Blood specimen (specimen) 07/12/2020 9:38 AM BODY COVERER 07/12/2020 9:57 AM BODY COVERER Christopher Jay MD LAB BLOOD ORDERABLES Ellyn adams Result [facility] [address] Department [place] [address] * (ABNORMAL) CBC with auto differential (07/12/2020 9:38 AM BODY COVERER) [facility] WBC 12.9(H) 3.8 - 9.9 K/cumm [facility] Hgb 8.7(L) 11.9 - 15.5 g/dL [facility] Hct 26.3(L) 35.6 - 45.5 % [facility] Plt 322 150 - 400 K/cumm [facility] MPV 9.5 9.1 - 12.3 fL [facility] RBC 2.73(L) 3.90 - 5.20 M/cumm [facility] MCV 96.3 81.3 - 96.4 fL [facility] MCH 31.9 27.1 - 33.3 pg [facility] MCHC 33.1 32.3 - 35.7 g/dL [facility] RDW CV 12.2 11.1 - 14.9 % [facility] RDW SD 42.4 35.7 - 48.1 fL [facility] NRBC abs 0.00 0.00 - 0.01 K/cumm [facility] Blood specimen (specimen) 07/12/2020 9:38 AM BODY COVERER 07/12/2020 9:57 AM BODY COVERER Christopher Jay MD LAB BLOOD ORDERABLES Ellyn adams Result [facility] [address] Department [place] [address] * (ABNORMAL) Basic metabolic panel (07/12/2020 9:38 AM BODY COVERER) [facility] Sodium 129(L) 135 - 145 mmol/L [facility] Potassium, pl 5.1(H) 3.3 - 4.9 mmol/L [facility] Chloride 92(L) 97 - 110 mmol/L [facility] CO2 28 22 - 32 mmol/L [facility] Anion gap 9 2 - 15 mmol/L [facility] BUN 10 8 - 25 mg/dL [facility] Creatinine 0.64 0.60 - 1.10 mg/dL [facility] Glucose 169 70 - 199 mg/dL [facility] Comment: Interpretive Data Fasting glucose >/= 126 mg/dl is diagnostic for diabetes. ?? Fasting is defined as no caloric intake for at least 8 hours. Fasting glucose between 100 mg/dl to 125 mg/dl is diagnostic of prediabetes. In a patient with classic symptoms of hyperglycemia or hyperglycemic crisis, a random glucose >/= 200 mg/dl is diagnostic for diabetes. In the absence of unequivocal hyperglycemia, results should be confirmed by repeat testing. The classification and Diagnosis of Diabetes Diabetes Care 2017;40 (Suppl. 1):S11. Current interpretive data was last revised 2017. Calcium 8.8 8.5 - 10.3 mg/dL [facility] Blood specimen (specimen) 07/12/2020 9:38 AM BODY COVERER 07/12/2020 9:57 AM BODY COVERER Christopher Jay MD LAB BLOOD ORDERABLES Ellyn l Result Performing Organization Address City/Va Hospital/ZIP Co de Phone Number [facility] Department [place] [address] * Magnesium (07/11/2020 5:31 PM BODY COVERER) [facility] Magnesium 2.0 1.4 - 2.5 mg/dL [facility] Blood specimen (specimen) 07/11/2020 5:31 PM BODY COVERER 07/11/2020 7:04 PM BODY COVERER Obed Martinez MD LAB BLOOD ORDERABLES Fi nal Result Performing Organization Address City/[facility] Hospital/ZIP Co de Phone Number [facility] Department [place] [address] * (ABNORMAL) Differential, auto (07/11/2020 5:31 PM BODY COVERER) Pathologist [facility] Neutrophil abs 8.4(H) 1.7 - 6.5 K/cumm [facility] Imm gran abs 0.7(H) 0.0 - 0.1 K/cumm [facility] Lymphocyte abs 2.3 0.8 - 3.3 K/cumm [facility] Monocyte abs 1.4(H) 0.2 - 0.8 K/cumm [facility] Eosinophil abs 0.3 0.0 - 0.5 K/cumm [facility] Basophil abs 0.1 0.0 - 0.1 K/cumm [facility] Neutrophil pct 64.1 % [facility] Comment: Interpretive Data Percent cell count reference ranges are not reported, since discordance with absolute values may lead to misinterpretation of CBC data. Current Interpretive Data was last revised on 2017. Imm gran pct 5.3 % [facility] Comment: Interpretive Data Percent cell count reference ranges are not reported, since discordance with absolute values may lead to misinterpretation of CBC data. Current Interpretive Data was last revised on 2017. Lymphocyte pct 17.7 % [facility] Comment: Interpretive Data Percent cell count reference ranges are not reported, since discordance with absolute values may lead to misinterpretation of CBC data. Current Interpretive Data was last revised on 2017. Monocyte pct 10.4 % [facility] Comment: Interpretive Data Percent cell count reference ranges are not reported, since discordance with absolute values may lead to misinterpretation of CBC data. Current Interpretive Data was last revised on 2017. Eosinophil pct 2.1 % [facility] Comment: Interpretive Data Percent cell count reference ranges are not reported, since discordance with absolute values may lead to misinterpretation of CBC data. Current Interpretive Data was last revised on 2017. Basophil pct 0.4 % [facility] Comment: Interpretive Data Percent cell count reference ranges are not reported, since discordance with absolute values may lead to misinterpretation of CBC data. Current Interpretive Data was last revised on 2017. Blood specimen (specimen) 07/11/2020 5:31 PM BODY COVERER 07/11/2020 7:04 PM BODY COVERER us Vianney Caballero MD LAB BLOOD ORDERABLES Fin al Result [facility] [address] Department [place] [address] * (ABNORMAL) CBC with auto differential (07/11/2020 5:31 PM BODY COVERER) [facility] WBC 13.0(H) 3.8 - 9.9 K/cumm [facility] Hgb 7.6(L) 11.9 - 15.5 g/dL [facility] Hct 24.4(L) 35.6 - 45.5 % [facility] Plt 351 150 - 400 K/cumm [facility] MPV 9.9 9.1 - 12.3 fL [facility] RBC 2.54(L) 3.90 - 5.20 M/cumm [facility] MCV 96.1 81.3 - 96.4 fL [facility] MCH 29.9 27.1 - 33.3 pg [facility] MCHC 31.1(L) 32.3 - 35.7 g/dL [facility] RDW CV 12.2 11.1 - 14.9 % [facility] RDW SD 42.8 35.7 - 48.1 fL [facility] NRBC abs 0.00 0.00 - 0.01 K/cumm [facility] Blood specimen (specimen) 07/11/2020 5:31 PM BODY COVERER 07/11/2020 7:04 PM BODY COVERER us Obed Martinez MD LAB BLOOD ORDERABLES Fi nal Result [facility] [address] Department [place] [address] * (ABNORMAL) Comprehensive metabolic panel (07/11/2020 5:31 PM BODY COVERER) [facility] Sodium 128(L) 135 - 145 mmol/L [facility] Potassium, pl 5.2(H) 3.3 - 4.9 mmol/L [facility] Chloride 92(L) 97 - 110 mmol/L [facility] CO2 28 22 - 32 mmol/L [facility] Anion gap 8 2 - 15 mmol/L [facility] BUN 11 8 - 25 mg/dL [facility] Creatinine 0.70 0.60 - 1.10 mg/dL [facility] Glucose 100 70 - 199 mg/dL [facility] Comment: Interpretive Data Fasting glucose >/= 126 mg/dl is diagnostic for diabetes. ?? Fasting is defined as no caloric intake for at least 8 hours. Fasting glucose between 100 mg/dl to 125 mg/dl is diagnostic of prediabetes. In a patient with classic symptoms of hyperglycemia or hyperglycemic crisis, a random glucose >/= 200 mg/dl is diagnostic for diabetes. In the absence of unequivocal hyperglycemia, results should be confirmed by repeat testing. The classification and Diagnosis of Diabetes Diabetes Care 2017;40 (Suppl. 1):S11. Current interpretive data was last revised 2017. Calcium 8.8 8.5 - 10.3 mg/dL [facility] Bilirubin, total 0.2 0.1 - 1.2 mg/dL [facility] Protein, pl 6.7 6.5 - 8.5 g/dL [facility] Albumin 2.6(L) 3.5 - 5.0 g/dL [facility] Alk phos 134(H) 40 - 130 Units/L [facility] ALT 16 7 - 45 Units/L [facility] AST 31 10 - 45 Units/L [facility] Blood specimen (specimen) 07/11/2020 5:31 PM BODY COVERER 07/11/2020 7:04 PM BODY COVERER Obed Martinez MD LAB BLOOD ORDERABLES Fi nal Result [facility] [address] Department [place] [address] * (ABNORMAL) Vancomycin, trough Please draw trough before tonight's dose. Can draw all AM labs at that time. Thanks! (07/11/2020 5:31 PM BODY COVERER) Vancomycin trough 8.6(L) 10.0 - 20.9 mcg/mL [facility] Blood specimen (specimen) 07/11/2020 5:31 PM BODY COVERER 07/11/2020 6:57 PM BODY COVERER Narrative [facility] - 07/11/2020 7:25 PM BODY COVERER Please draw trough before tonight's dose. Can draw all AM labs at that time. Thanks! us Obed Martinez MD LAB BLOOD ORDERABLES Fi nal Result [facility] [address] Department [place] [address] * (ABNORMAL) Differential, auto (07/10/2020 9:04 PM BODY COVERER) Neutrophil abs 12.6(H) 1.7 - 6.5 K/cumm [facility] Imm gran abs 1.0(H) 0.0 - 0.1 K/cumm [facility] Lymphocyte abs 4.3(H) 0.8 - 3.3 K/cumm [facility] Monocyte abs 4.7(H) 0.2 - 0.8 K/cumm [facility] Eosinophil abs 0.1 0.0 - 0.5 K/cumm [facility] Basophil abs 0.1 0.0 - 0.1 K/cumm [facility] Neutrophil pct 55.4 % [facility] Comment: Interpretive Data Percent cell count reference ranges are not reported, since discordance with absolute values may lead to misinterpretation of CBC data. Current Interpretive Data was last revised on 2017. Imm gran pct 4.2 % [facility] Comment: Interpretive Data Percent cell count reference ranges are not reported, since discordance with absolute values may lead to misinterpretation of CBC data. Current Interpretive Data was last revised on 2017. Lymphocyte pct 18.9 % [facility] Comment: Interpretive Data Percent cell count reference ranges are not reported, since discordance with absolute values may lead to misinterpretation of CBC data. Current Interpretive Data was last revised on 2017. Monocyte pct 20.6 % [facility] Comment: Interpretive Data Percent cell count reference ranges are not reported, since discordance with absolute values may lead to misinterpretation of CBC data. Current Interpretive Data was last revised on 2017. Eosinophil pct 0.4 % [facility] Comment: Interpretive Data Percent cell count reference ranges are not reported, since discordance with absolute values may lead to misinterpretation of CBC data. Current Interpretive Data was last revised on 2017. Basophil pct 0.5 % [facility] Comment: Interpretive Data Percent cell count reference ranges are not reported, since discordance with absolute values may lead to misinterpretation of CBC data. Current Interpretive Data was last revised on 2017. Blood specimen (specimen) 07/10/2020 9:04 PM BODY COVERER 07/10/2020 10:17 PM BODY COVERER us Vianney Caballero MD LAB BLOOD ORDERABLES Fin al Result [facility] [address] Department [place] [address] * (ABNORMAL) CBC with auto differential (07/10/2020 9:04 PM BODY COVERER) WBC 22.8(H) 3.8 - 9.9 K/cumm [facility] Hgb 10.4(L) 11.9 - 15.5 g/dL [facility] Hct 32.3(L) 35.6 - 45.5 % [facility] Plt 329 150 - 400 K/cumm [facility] MPV 9.7 9.1 - 12.3 fL [facility] RBC 3.40(L) 3.90 - 5.20 M/cumm [facility] MCV 95.0 81.3 - 96.4 fL [facility] MCH 30.6 27.1 - 33.3 pg [facility] MCHC 32.2(L) 32.3 - 35.7 g/dL [facility] RDW CV 11.9 11.1 - 14.9 % [facility] RDW SD 41.5 35.7 - 48.1 fL [facility] NRBC abs 0.00 0.00 - 0.01 K/cumm [facility] Blood specimen (specimen) 07/10/2020 9:04 PM BODY COVERER 07/10/2020 10:17 PM BODY COVERER us Obed Martinez MD LAB BLOOD ORDERABLES Fi nal Result Performing Organization Address City/[facility]/ZIP Co de Phone Number [facility] [address] Department [place] [address] * (ABNORMAL) Comprehensive metabolic panel (07/10/2020 9:04 PM BODY COVERER) Sodium 128(L) 135 - 145 mmol/L [facility] Potassium, pl 5.1(H) 3.3 - 4.9 mmol/L [facility] Chloride 92(L) 97 - 110 mmol/L [facility] CO2 28 22 - 32 mmol/L [facility] Anion gap 8 2 - 15 mmol/L [facility] BUN 7(L) 8 - 25 mg/dL [facility] Creatinine 0.56(L) 0.60 - 1.10 mg/dL [facility] Glucose 130 70 - 199 mg/dL [facility] Comment: Interpretive Data Fasting glucose >/= 126 mg/dl is diagnostic for diabetes. ?? Fasting is defined as no caloric intake for at least 8 hours. Fasting glucose between 100 mg/dl to 125 mg/dl is diagnostic of prediabetes. In a patient with classic symptoms of hyperglycemia or hyperglycemic crisis, a random glucose >/= 200 mg/dl is diagnostic for diabetes. In the absence of unequivocal hyperglycemia, results should be confirmed by repeat testing. The classification and Diagnosis of Diabetes Diabetes Care 2017;40 (Suppl. 1):S11. Current interpretive data was last revised 2017. Calcium 8.8 8.5 - 10.3 mg/dL [facility] Bilirubin, total 0.2 0.1 - 1.2 mg/dL [facility] Protein, pl 7.1 6.5 - 8.5 g/dL [facility] Albumin 2.9(L) 3.5 - 5.0 g/dL [facility] Alk phos 135(H) 40 - 130 Units/L [facility] ALT 12 7 - 45 Units/L [facility] AST 28 10 - 45 Units/L [facility] Blood specimen (specimen) 07/10/2020 9:04 PM BODY COVERER 07/10/2020 10:17 PM BODY COVERER Obed Martinez MD LAB BLOOD ORDERABLES Fi nal Result [facility] [address] Department [place] [address] * (ABNORMAL) Differential, auto (07/09/2020 9:03 PM BODY COVERER) Neutrophil abs 11.1(H) 1.7 - 6.5 K/cumm [facility] Imm gran abs 0.7(H) 0.0 - 0.1 K/cumm [facility] Lymphocyte abs 2.0 0.8 - 3.3 K/cumm [facility] Monocyte abs 1.7(H) 0.2 - 0.8 K/cumm [facility] Eosinophil abs 0.0 0.0 - 0.5 K/cumm [facility] Basophil abs 0.1 0.0 - 0.1 K/cumm [facility] Neutrophil pct 70.9 % [facility] Comment: Interpretive Data Percent cell count reference ranges are not reported, since discordance with absolute values may lead to misinterpretation of CBC data. Current Interpretive Data was last revised on 2017. Imm gran pct 4.5 % [facility] Comment: Interpretive Data Percent cell count reference ranges are not reported, since discordance with absolute values may lead to misinterpretation of CBC data. Current Interpretive Data was last revised on 2017. Lymphocyte pct 13.0 % [facility] Comment: Interpretive Data Percent cell count reference ranges are not reported, since discordance with absolute values may lead to misinterpretation of CBC data. Current Interpretive Data was last revised on 2017. Monocyte pct 11.0 % [facility] Comment: Interpretive Data Percent cell count reference ranges are not reported, since discordance with absolute values may lead to misinterpretation of CBC data. Current Interpretive Data was last revised on 2017. Eosinophil pct 0.3 % [facility] Comment: Interpretive Data Percent cell count reference ranges are not reported, since discordance with absolute values may lead to misinterpretation of CBC data. Current Interpretive Data was last revised on 2017. Basophil pct 0.3 % [facility] Comment: Interpretive Data Percent cell count reference ranges are not reported, since discordance with absolute values may lead to misinterpretation of CBC data. Current Interpretive Data was last revised on 2017. Blood specimen (specimen) 07/09/2020 9:03 PM BODY COVERER 07/09/2020 10:01 PM BODY COVERER us Vianney Caballero MD LAB BLOOD ORDERABLES Fin al Result Performing Organization Address City/[facility]/ZIP Co de Phone Number [facility] Department [place] [address] * (ABNORMAL) CBC with auto differential (07/09/2020 9:03 PM BODY COVERER) WBC 15.6(H) 3.8 - 9.9 K/cumm [facility] Hgb 8.5(L) 11.9 - 15.5 g/dL [facility] Hct 26.8(L) 35.6 - 45.5 % [facility] Plt 361 150 - 400 K/cumm [facility] MPV 9.4 9.1 - 12.3 fL [facility] RBC 2.83(L) 3.90 - 5.20 M/cumm [facility] MCV 94.7 81.3 - 96.4 fL [facility] MCH 30.0 27.1 - 33.3 pg [facility] MCHC 31.7(L) 32.3 - 35.7 g/dL [facility] RDW CV 11.9 11.1 - 14.9 % [facility] RDW SD 41.7 35.7 - 48.1 fL [facility] NRBC abs 0.00 0.00 - 0.01 K/cumm [facility] Blood specimen (specimen) 07/09/2020 9:03 PM BODY COVERER 07/09/2020 10:01 PM BODY COVERER us Obed Martinez MD LAB BLOOD ORDERABLES Fi nal Result Performing Organization Address City/[facility]/ZIP Co de Phone Number [facility] Department [place] [address] * (ABNORMAL) Comprehensive metabolic panel (07/09/2020 9:03 PM BODY COVERER) Sodium 127(L) 135 - 145 mmol/L [facility] Potassium, pl 5.0(H) 3.3 - 4.9 mmol/L [facility] Chloride 93(L) 97 - 110 mmol/L [facility] CO2 28 22 - 32 mmol/L [facility] Anion gap 6 2 - 15 mmol/L [facility] BUN 8 8 - 25 mg/dL [facility] Creatinine 0.60 0.60 - 1.10 mg/dL [facility] Glucose 139 70 - 199 mg/dL [facility] Comment: Interpretive Data Fasting glucose >/= 126 mg/dl is diagnostic for diabetes. ?? Fasting is defined as no caloric intake for at least 8 hours. Fasting glucose between 100 mg/dl to 125 mg/dl is diagnostic of prediabetes. In a patient with classic symptoms of hyperglycemia or hyperglycemic crisis, a random glucose >/= 200 mg/dl is diagnostic for diabetes. In the absence of unequivocal hyperglycemia, results should be confirmed by repeat testing. The classification and Diagnosis of Diabetes Diabetes Care 2017;40 (Suppl. 1):S11. Current interpretive data was last revised 2017. Calcium 8.6 8.5 - 10.3 mg/dL [facility] Bilirubin, total 0.3 0.1 - 1.2 mg/dL [facility] Protein, pl 6.8 6.5 - 8.5 g/dL [facility] Albumin 2.9(L) 3.5 - 5.0 g/dL [facility] Alk phos 149(H) 40 - 130 Units/L [facility] ALT 14 7 - 45 Units/L [facility] AST 29 10 - 45 Units/L [facility] Blood specimen (specimen) 07/09/2020 9:03 PM BODY COVERER 07/09/2020 10:01 PM BODY COVERER us Obed Martinez MD LAB BLOOD ORDERABLES Fi nal Result [facility] [address] Department [place] [address] * POCT glucose (07/09/2020 9:02 PM BODY COVERER) Pathologist [facility] Glucose, POC 148 70 - 199 mg/dL [facility] Blood specimen (specimen) 07/09/2020 9:02 PM BODY COVERER 07/09/2020 9:02 PM BODY COVERER Obed Martinez MD LAB POCT ORDERABLES - D EVICE Final Result Performing Organization Address City/[facility]/ZIP Co de Phone Number [facility] Department [place] [address] * POCT glucose (07/09/2020 4:34 PM BODY COVERER) [facility] Glucose, POC 164 70 - 199 mg/dL [facility] Blood specimen (specimen) 07/09/2020 4:34 PM BODY COVERER 07/09/2020 4:34 PM BODY COVERER Obed Martinez MD LAB POCT ORDERABLES - D EVICE Final Result Performing Organization Address [facility] de Phone Number [facility] [place] [address] * (ABNORMAL) Differential, auto (07/08/2020 5:57 PM BODY COVERER) [facility] Neutrophil abs 22.5(H) 1.7 - 6.5 K/cumm [facility] Imm gran abs 1.4(H) 0.0 - 0.1 K/cumm [facility] Lymphocyte abs 1.0 0.8 - 3.3 K/cumm [facility] Monocyte abs 0.6 0.2 - 0.8 K/cumm [facility] Eosinophil abs 0.0 0.0 - 0.5 K/cumm [facility] Basophil abs 0.1 0.0 - 0.1 K/cumm [facility] Neutrophil pct 87.8 % [facility] Comment: Interpretive Data Percent cell count reference ranges are not reported, since discordance with absolute values may lead to misinterpretation of CBC data. Current Interpretive Data was last revised on 2017. Imm gran pct 5.5 % [facility] Comment: Interpretive Data Percent cell count reference ranges are not reported, since discordance with absolute values may lead to misinterpretation of CBC data. Current Interpretive Data was last revised on 2017. Lymphocyte pct 3.8 % [facility] Comment: Interpretive Data Percent cell count reference ranges are not reported, since discordance with absolute values may lead to misinterpretation of CBC data. Current Interpretive Data was last revised on 2017. Monocyte pct 2.5 % [facility] Comment: Interpretive Data Percent cell count reference ranges are not reported, since discordance with absolute values may lead to misinterpretation of CBC data. Current Interpretive Data was last revised on 2017. Eosinophil pct 0.0 % [facility] Comment: Interpretive Data Percent cell count reference ranges are not reported, since discordance with absolute values may lead to misinterpretation of CBC data. Current Interpretive Data was last revised on 2017. Basophil pct 0.4 % [facility] Comment: Interpretive Data Percent cell count reference ranges are not reported, since discordance with absolute values may lead to misinterpretation of CBC data. Current Interpretive Data was last revised on 2017. Blood specimen (specimen) 07/08/2020 5:57 PM BODY COVERER 07/08/2020 7:33 PM BODY COVERER us Vianney Caballero MD LAB BLOOD ORDERABLES Fin al Result [facility] [address] Department [place] [address] * Blood culture Blood (07/08/2020 5:57 PM BODY COVERER) Report Final Report: No growth [facility] Blood specimen (specimen) 07/08/2020 5:57 PM BODY COVERER 07/08/2020 8:08 PM BODY COVERER Narrative [facility] - 07/13/2020 7:01 AM BODY COVERER 1. ?Blood cultures are incubated for 4 days on a continuously monitored blood culture system. The first report of a negative culture is issued within 24 hours of receipt of the specimen in the laboratory. 2. ?Positive culture results are reported as soon as they are detected. 3. ?The most important factor for detection of microbes in the setting of bloodstream infection is the volume of blood submitted for culture. Failure to collect an optimal blood volume can result in false negative blood cultures. For pediatric patients, the recommended blood volume to collect is 1 mL of blood per year of patient age (up to 20 mL) per blood culture set. For adult patients, 20 mL of blood, divided equally between aerobic and anaerobic blood culture bottles, is recommended for each blood culture set. 4. ?For blood cultures with Gram-positive cocci, a rapid molecular test for organism identification may be performed using the Origin Digitaligene Gram-Positive Blood Culture Assay. This assay detects microbial DNA in positive blood culture broth via hybridization of target DNA to capture oligonucleotides on a microarray. This assay has been cleared by the [place] Food and Drug Administration and its performance characteristics have been verified by the [facility]. 5. ?For questions about this culture, contact the Microbiology Laboratory at [phone]. Interpretive data was last revised on 2019. Obed Martinez MD LAB MICROBIOLOGY - GENE RAL ORDERABLES Final Result [facility] [address] Department [place] [address] * Blood culture Blood (07/08/2020 5:57 PM BODY COVERER) Report Final Report: No growth [facility] Blood specimen (specimen) 07/08/2020 5:57 PM BODY COVERER 07/08/2020 8:08 PM BODY COVERER Narrative [facility] - 07/13/2020 7:01 AM BODY COVERER 1. ?Blood cultures are incubated for 4 days on a continuously monitored blood culture system. The first report of a negative culture is issued within 24 hours of receipt of the specimen in the laboratory. 2. ?Positive culture results are reported as soon as they are detected. 3. ?The most important factor for detection of microbes in the setting of bloodstream infection is the volume of blood submitted for culture. Failure to collect an optimal blood volume can result in false negative blood cultures. For pediatric patients, the recommended blood volume to collect is 1 mL of blood per year of patient age (up to 20 mL) per blood culture set. For adult patients, 20 mL of blood, divided equally between aerobic and anaerobic blood culture bottles, is recommended for each blood culture set. 4. ?For blood cultures with Gram-positive cocci, a rapid molecular test for organism identification may be performed using the [employer] Digital[employer] Gram-Positive Blood Culture Assay. This assay detects microbial DNA in positive blood culture broth via hybridization of target DNA to capture oligonucleotides on a microarray. This assay has been cleared by the [place] Food and Drug Administration and its performance characteristics have been verified by the [facility]. 5. ?For questions about this culture, contact the Microbiology Laboratory at [phone]. Interpretive data was last revised on 2019. Obed Martinez MD LAB MICROBIOLOGY - GENE RAL ORDERABLES Final Result [facility] [address] Department [place] [address] * (ABNORMAL) CBC with auto differential (07/08/2020 5:57 PM BODY COVERER) WBC 25.6(H) 3.8 - 9.9 K/cumm [facility] Hgb 10.9(L) 11.9 - 15.5 g/dL [facility] Hct 34.0(L) 35.6 - 45.5 % [facility] Plt 451(H) 150 - 400 K/cumm [facility] MPV 9.9 9.1 - 12.3 fL [facility] RBC 3.58(L) 3.90 - 5.20 M/cumm [facility] MCV 95.0 81.3 - 96.4 fL [facility] MCH 30.4 27.1 - 33.3 pg [facility] MCHC 32.1(L) 32.3 - 35.7 g/dL [facility] RDW CV 11.9 11.1 - 14.9 % [facility] RDW SD 41.6 35.7 - 48.1 fL [facility] NRBC abs 0.00 0.00 - 0.01 K/cumm [facility] Blood specimen (specimen) 07/08/2020 5:57 PM BODY COVERER 07/08/2020 7:33 PM BODY COVERER us Obed Martinez MD LAB BLOOD ORDERABLES Fi nal Result [facility] [address] Department [place] [address] * (ABNORMAL) Comprehensive metabolic panel (07/08/2020 5:57 PM BODY COVERER) Sodium 128(L) 135 - 145 mmol/L [facility] Potassium, pl 4.8 3.3 - 4.9 mmol/L [facility] Chloride 91(L) 97 - 110 mmol/L [facility] CO2 26 22 - 32 mmol/L [facility] Anion gap 11 2 - 15 mmol/L [facility] BUN 14 8 - 25 mg/dL [facility] Creatinine 0.70 0.60 - 1.10 mg/dL [facility] Glucose 187 70 - 199 mg/dL [facility] Comment: Interpretive Data Fasting glucose >/= 126 mg/dl is diagnostic for diabetes. ?? Fasting is defined as no caloric intake for at least 8 hours. Fasting glucose between 100 mg/dl to 125 mg/dl is diagnostic of prediabetes. In a patient with classic symptoms of hyperglycemia or hyperglycemic crisis, a random glucose >/= 200 mg/dl is diagnostic for diabetes. In the absence of unequivocal hyperglycemia, results should be confirmed by repeat testing. The classification and Diagnosis of Diabetes Diabetes Care 2017;40 (Suppl. 1):S11. Current interpretive data was last revised 2017. Calcium 9.1 8.5 - 10.3 mg/dL [facility] Bilirubin, total 0.2 0.1 - 1.2 mg/dL [facility] Protein, pl 7.7 6.5 - 8.5 g/dL [facility] Albumin 3.3(L) 3.5 - 5.0 g/dL [facility] Alk phos 195(H) 40 - 130 Units/L [facility] ALT 26 7 - 45 Units/L [facility] AST 33 10 - 45 Units/L [facility] Blood specimen (specimen) 07/08/2020 5:57 PM BODY COVERER 07/08/2020 7:32 PM BODY COVERER Obed Martinez MD LAB BLOOD ORDERABLES Fi nal Result Performing Organization Address [facility] [place] [address] * (ABNORMAL) Vancomycin, trough Please draw before this evening's dose of vancomycin. Thanks! (07/08/2020 5:57 PM BODY COVERER) Pathologist [facility] Vancomycin trough 7.9(L) 10.0 - 20.9 mcg/mL [facility] Blood specimen (specimen) 07/08/2020 5:57 PM BODY COVERER 07/08/2020 7:32 PM BODY COVERER Narrative [facility] - 07/08/2020 8:19 PM BODY COVERER Please draw before this evening's dose of vancomycin. Thanks! Obed Martinez MD LAB BLOOD ORDERABLES Fi nal Result Performing Organization Address [facility] [place] [address] * Tissue aerobic and anaerobic culture and gram stain Bone Leg, left (07/08/2020 1:18 PM BODY COVERER) [facility] Direct Specimen Exam Stain: Moderate polymorphonuclear leukocytes seen. No organisms seen. [facility] Report Final Report: No growth [facility] Bone (Leg, left) 07/08/2020 1:18 PM BODY COVERER 07/08/2020 2:25 PM BODY COVERER Narrative [facility] - 07/13/2020 10:46 AM BODY COVERER Left residual femur Testing performed by [facility] ([phone]) Specimens submitted from normally sterile body sites will have all bacterial morphotypes identified. Specimens that contain grossly mixed oleksandr and/or are from body sites that are not normally sterile will be examined for Staphylococcus aureus, Pseudomonas aeruginosa, beta-hemolytic strep, vancomycin-resistant Enterococcus, Bacteroides, Parabacteroides, Clostridium perfringens and fungus. If any of these are isolated, the organism will be reported. Current interpretive data was last revised on 2019. Jacobo Shoemaker MD LAB MICROBIOLOGY - GENERAL ORDERABLES Final Result Performing Organization Address [facility] Co de Phone Number [facility] [place] [address] * FL Fluoroscopy < 1 Hour (Statistical Only) (07/08/2020 12:52 PM BODY COVERER) Narrative RAD_PACS_[facility] - 07/08/2020 12:52 PM BODY COVERER The images from this study are not interpreted by Radiology. ??Please refer to the physician's procedure / OR operative note. Jacobo Shoemaker MD IMG FLUOROSCOPY PROCEDURES Final Result Performing Organization Address [facility] de Phone Number [email or web address] * Surgical pathology (07/08/2020 12:18 PM BODY COVERER) Tissue (Amputation non-tramatic) 07/08/2020 12:18 PM BODY COVERER Narrative PATHOLOGY [facility] - 07/11/2020 12:05 PM BODY COVERER EPIC results best viewed via link to PDF [facility] [place] [address] SURGICAL PATHOLOGY REPORT FINAL Patient Name: ?? ELAN CELESTINA Ceron Gender: ??F : ??1950 (Age: 69) Address: ??[address] ??[address] Hospital #: ??[id number] Taken:07/08/2020 Received:07/08/2020 Reported: 07/11/2020 Patient Type: [facility] Inpatient ?? Service: Orthopedic Surgery Location: [facility] 0102 Physician(s): ??Jacobo Shoemaker M.D. Unknown Doctor Ernesto Devine M.D., PHD Huang Martin M.D. Diagnosis: Limb, left, above knee amputation ? - Skin and soft tissue with acute and chronic inflammation and necrosis - Bone with acute osteomyelitis, present at resection margin kxr/07/11/2020 08:37 By this signature, I attest that the above diagnosis is based upon my personal examination of the slides(and/or other material indicated in the diagnosis). Hernando Greer M.D. Report Electronically Reviewed and Signed Out By ??Hernando Greer M.D. 07/11/2020 12:05:34 Microscopic Description and Comment: Microscopic examination substantiates the above cited diagnosis. 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 Operative procedure: Left above-knee amputation. Specimen(s) Received: A: Left AGNES Gross Description: Received fresh in a red biohazard bag labeled with the patient's name and left AKA is a left [id number] amputation specimen measuring 4.0 cm from soft tissue surgical margin to knee, 40.0 cm from posterior knee to heel, and 23.0 cm from heel to toe. The specimen is surfaced by wrinkled, pale thompson skin. The foot has five attached unremarkable digits. A roughly T-shaped, sutured incision is identified on the anterior lower leg with an aggregate length of 24.0 cm, and a width of up to 0.7 cm. The incision comes to within 8.0 cm the soft tissue at surgical margin. Four additional linear scars identified on the ranging in length from 7.5-9.0 cm. Three linear scars are identified around the ankle ranging in length from 50-11.0 cm. There are no other lesions appreciated on the skin surface. A stump of distal femur extends from the soft tissue at the surgical margin for a length of 7.5 cm, and a diameter of 3.0 cm. The lower leg sutured incision is opened to show hemorrhagic, purulent underlying soft tissue. Two jagged, detached portions of firm, thompson-white bony tissue underlying the area of incision and measure 2.9 x 1.0 x 0.3 cm and 2.7 x 1.6 x 0.7 cm. The tibia is fractured in the area underlying the incision in the lower leg ends in unnatural ways. A white plastic, circular medical insurance claims specialist replaces the patella and measures 4.0 x 3.3 x 1.0 cm. The distal aspect of the femur is roughened, and the medial and lateral condyles are no longer grossly appreciated. A jerome metallic and white plastic medical insurance claims specialist is identified at the proximal tibia and measures 6.0 x 4.4 x 3.5 cm. Sections of the distal femur are easily taken with a scalpel blade. Labeled A1 - nutrition representative shave of soft tissue and skin at the surgical resection margin; A2 - nutrition representative section of incision, perpendicular; A3 - nutrition representative sections of distal femur following acid decal; A4 - shave of femur resection margin following acid decalcification. ??The specimen is returned biohazard bag. 09/06/1307/08/2020 15:24 PA(s): Lisa Cruz MS, PA ([facility]) By this signature, I attest that the above diagnosis is based upon my personal examination of the slides(and/or other material). Addenda/Procedures The performance characteristics of some immunohistochemical stains, fluorescence in-situ hybridization tests and immunophenotyping by flow cytometry cited in this report (if any) were determined by the Surgical Pathology Department at [facility] as part of an ongoing manufacturing quality manager program and in compliance with federally mandated regulations drawn from the Clinical Laboratory Improvement Act of 1988 (CLIA '88). ??Some of these tests rely on the use of analyte specific reagents and are subject to specific labeling requirements by the US Food and Drug Administration. ??Such diagnostic tests may only be performed in a facility that is certified by the Department of Health and Human Services as a high complexity laboratory under CLIA '88. ??The FDA has determined that such clearance or approval is not necessary. ??This test is used for clinical purposes. ??It should not be regarded as investigational or for research. ??Nevertheless, federal rules concerning the medical use of analyte specific reagents require that the following disclaimer be attached to the report: This test was developed and its performance characteristics determined by the Surgical Pathology Department of [facility]. ??It has not been cleared or approved by the U. S. Food and Drug Administration. IMAGES AND SCANNED DOCUMENTS, IF INCLUDED, ONLY VIEWABLE IN PDF VERSION OF REPORT Jacobo Shoemaker MD LAB PATHOLOGY OR DERABLES Final Result PATHOLOGY [facility] 3rd Floor [place], [place] [phone] * XR Tibia Fibula Left 2 Views (07/08/2020 1:04 AM BODY COVERER) Anatomical Region Laterality Modality Lower Extremities, Lower Leg Left Com puted Radiography 07/08/2020 6:27 AM BODY COVERER Impressions 07/08/2020 6:27 AM BODY COVERER 1. 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 Electronically signed by: Jordan Andrews MD, PHD Narrative 07/08/2020 6:27 AM BODY COVERER EXAMINATION: Left tibia-fibula 2 views HISTORY: ??Left proximal tibia and fibula fractures FINDINGS: 3 portable radiographs of the left tibia and fibula are compared to prior radiographs from 05/07/[address] examination from 07/06/2020. There has been interval explantation of the proximal tibia hardware with unchanged mild displaced periprosthetic fractures of the left proximal tibia and fractures of the left proximal fibular shaft. The total knee arthroplasty appears unchanged. Overlying splint obscures fine bone detail. The internally fixated medial and lateral malleolar ankle fractures are again noted. Procedure Note Jordan Andrews MD PhD - 07/08/2020 EXAMINATION: Left tibia-fibula 2 views HISTORY: Left proximal tibia and fibula fractures FINDINGS: 3 portable radiographs of the left tibia and fibula are compared to prior radiographs from 05/07/[address] examination from 07/06/2020. There has been interval explantation of the proximal tibia hardware with unchanged mild displaced periprosthetic fractures of the left proximal tibia and fractures of the left proximal fibular shaft. The total knee arthroplasty appears unchanged. Overlying splint obscures fine bone detail. The internally fixated medial and lateral malleolar ankle fractures are again noted. IMPRESSION: 1. Interval hardware explantation with unchanged, ununited proximal tibia periprosthetic and proximal fibular shaft fractures Electronically signed by: Jordan Andrews MD, PHD us Ethel Amaro MD IMG XR PROCEDURES Fi nal Result * ECG 12 lead (07/07/2020 11:59 PM BODY COVERER) Ventricular Rate EKG/Min 76 BPM [facility] Atrial Rate 76 BPM [facility] WA-Interval (MSEC) 174 ms [facility] QRS-Interval (MSEC) 84 ms [facility] QT-Interval (MSEC) 414 ms [facility] QTc 465 ms [facility] P [place] 70 degrees [facility] R [place] -21 degrees [facility] T [place] 22 degrees [facility] Diagnosis Normal sinus rhythm Voltage criteria for left ventricular hypertrophy Abnormal ECG When compared with ECG of 05-JUL-2020 19:29, (unconfirmed) No significant change was found Confirmed by GENIE BEAR M.D ([id number]) on 07/08/2020 11:34:42 AM [facility] 07/07/2020 11:5 9 PM BODY COVERER 07/08/2020 11:34 AM BODY COVERER us Huang Gusman MD ECG ORDERABLES Final Result [facility] * (ABNORMAL) Differential, auto (07/07/2020 10:06 PM BODY COVERER) Neutrophil abs 14.9(H) 1.7 - 6.5 K/cumm [facility] Imm gran abs 1.1(H) 0.0 - 0.1 K/cumm [facility] Lymphocyte abs 2.4 0.8 - 3.3 K/cumm [facility] Monocyte abs 1.7(H) 0.2 - 0.8 K/cumm [facility] Eosinophil abs 0.2 0.0 - 0.5 K/cumm [facility] Basophil abs 0.1 0.0 - 0.1 K/cumm [facility] Neutrophil pct 73.4 % [facility] Comment: Interpretive Data Percent cell count reference ranges are not reported, since discordance with absolute values may lead to misinterpretation of CBC data. Current Interpretive Data was last revised on 2017. Imm gran pct 5.3 % [facility] Comment: Interpretive Data Percent cell count reference ranges are not reported, since discordance with absolute values may lead to misinterpretation of CBC data. Current Interpretive Data was last revised on 2017. Lymphocyte pct 11.6 % [facility] Comment: Interpretive Data Percent cell count reference ranges are not reported, since discordance with absolute values may lead to misinterpretation of CBC data. Current Interpretive Data was last revised on 2017. Monocyte pct 8.4 % [facility] Comment: Interpretive Data Percent cell count reference ranges are not reported, since discordance with absolute values may lead to misinterpretation of CBC data. Current Interpretive Data was last revised on 2017. Eosinophil pct 0.8 % [facility] Comment: Interpretive Data Percent cell count reference ranges are not reported, since discordance with absolute values may lead to misinterpretation of CBC data. Current Interpretive Data was last revised on 2017. Basophil pct 0.5 % [facility] Comment: Interpretive Data Percent cell count reference ranges are not reported, since discordance with absolute values may lead to misinterpretation of CBC data. Current Interpretive Data was last revised on 2017. Blood specimen (specimen) 07/07/2020 10:06 PM BODY COVERER 07/08/2020 1:29 AM BODY COVERER us Vianney Caballero MD LAB BLOOD ORDERABLES Fin al Result [facility] [address] Department [place] [address] * Type and screen (07/07/2020 10:06 PM BODY COVERER) Triston, indirect Negative [facility] ABO Rh A Positive [facility] Blood specimen (specimen) 07/07/2020 10:06 PM BODY COVERER 07/08/2020 1:54 AM BODY COVERER Narrative [facility] - 07/08/2020 3:29 AM BODY COVERER Has the patient had Daratumumab or Isatuximab in the past 6 months?->Unknown Huang Gusman MD LAB BLOOD BANK TEST ORDERABLES F inal Result Performing Organization Address [facility] Co de Phone Number [facility] [place] [address] * (ABNORMAL) CBC with auto differential (07/07/2020 10:06 PM BODY COVERER) Pathologist [facility] WBC 20.3(H) 3.8 - 9.9 K/cumm [facility] Hgb 9.6(L) 11.9 - 15.5 g/dL [facility] Hct 29.7(L) 35.6 - 45.5 % [facility] Plt 436(H) 150 - 400 K/cumm [facility] MPV 9.6 9.1 - 12.3 fL [facility] RBC 3.16(L) 3.90 - 5.20 M/cumm [facility] MCV 94.0 81.3 - 96.4 fL [facility] MCH 30.4 27.1 - 33.3 pg [facility] MCHC 32.3 32.3 - 35.7 g/dL [facility] RDW CV 11.9 11.1 - 14.9 % [facility] RDW SD 40.9 35.7 - 48.1 fL [facility] NRBC abs 0.00 0.00 - 0.01 K/cumm [facility] Blood specimen (specimen) 07/07/2020 10:06 PM BODY COVERER 07/08/2020 1:29 AM BODY COVERER Obed Martinez MD LAB BLOOD ORDERABLES Fi nal Result [facility] [place] [address] * (ABNORMAL) Comprehensive metabolic panel (07/07/2020 10:06 PM BODY COVERER) Pathologist [facility] Sodium 129(L) 135 - 145 mmol/L [facility] Potassium, pl 3.9 3.3 - 4.9 mmol/L [facility] Chloride 93(L) 97 - 110 mmol/L [facility] CO2 30 22 - 32 mmol/L [facility] Anion gap 6 2 - 15 mmol/L [facility] BUN 13 8 - 25 mg/dL [facility] Creatinine 0.70 0.60 - 1.10 mg/dL [facility] Glucose 103 70 - 199 mg/dL [facility] Comment: Interpretive Data Fasting glucose >/= 126 mg/dl is diagnostic for diabetes. ?? Fasting is defined as no caloric intake for at least 8 hours. Fasting glucose between 100 mg/dl to 125 mg/dl is diagnostic of prediabetes. In a patient with classic symptoms of hyperglycemia or hyperglycemic crisis, a random glucose >/= 200 mg/dl is diagnostic for diabetes. In the absence of unequivocal hyperglycemia, results should be confirmed by repeat testing. The classification and Diagnosis of Diabetes Diabetes Care 2017;40 (Suppl. 1):S11. Current interpretive data was last revised 2017. Calcium 8.9 8.5 - 10.3 mg/dL [facility] Bilirubin, total 0.3 0.1 - 1.2 mg/dL [facility] Protein, pl 7.4 6.5 - 8.5 g/dL [facility] Albumin 3.2(L) 3.5 - 5.0 g/dL [facility] Alk phos 206(H) 40 - 130 Units/L [facility] ALT 25 7 - 45 Units/L [facility] AST 35 10 - 45 Units/L [facility] Blood specimen (specimen) 07/07/2020 10:06 PM BODY COVERER 07/08/2020 1:29 AM BODY COVERER us Obed Martinez MD LAB BLOOD ORDERABLES Fi nal Result [facility] [address] Department [place] [address] * (ABNORMAL) Manual Differential (07/06/2020 11:07 PM BODY COVERER) Differential Manual [facility] Cells Counted 115 [facility] Neutrophil abs 22.1(H) 1.7 - 6.5 K/cumm [facility] Imm gran abs 0.6(H) 0.0 - 0.1 K/cumm [facility] Lymphocyte abs 1.1 0.8 - 3.3 K/cumm [facility] Monocyte abs 0.9(H) 0.2 - 0.8 K/cumm [facility] Neutrophil pct 89.5 % [facility] Comment: Interpretive Data Percent cell count reference ranges are not reported, since discordance with absolute values may lead to misinterpretation of CBC data. Current Interpretive Data was last revised on 2017. Lymphocyte pct 3.5 % [facility] Comment: Interpretive Data Percent cell count reference ranges are not reported, since discordance with absolute values may lead to misinterpretation of CBC data. Current Interpretive Data was last revised on 2017. Monocyte pct 3.5 % [facility] Comment: Interpretive Data Percent cell count reference ranges are not reported, since discordance with absolute values may lead to misinterpretation of CBC data. Current Interpretive Data was last revised on 2017. Metamyelocyte pct 2.6 % [facility] Variant lymph pct 0.9 % [facility] Hypersegmentation Present(A) [facility] Blood specimen (specimen) 07/06/2020 11:07 PM BODY COVERER 07/07/2020 12:01 AM BODY COVERER us Vianney Caballero MD LAB BLOOD ORDERABLES Fin al Result [facility] [address] Department [place] [address] * (ABNORMAL) CBC with auto differential (07/06/2020 11:07 PM BODY COVERER) WBC 24.7(H) 3.8 - 9.9 K/cumm [facility] Hgb 11.0(L) 11.9 - 15.5 g/dL [facility] Hct 33.6(L) 35.6 - 45.5 % [facility] Plt 448(H) 150 - 400 K/cumm [facility] MPV 9.5 9.1 - 12.3 fL [facility] RBC 3.62(L) 3.90 - 5.20 M/cumm [facility] MCV 92.8 81.3 - 96.4 fL [facility] MCH 30.4 27.1 - 33.3 pg [facility] MCHC 32.7 32.3 - 35.7 g/dL [facility] RDW CV 11.8 11.1 - 14.9 % [facility] RDW SD 40.2 35.7 - 48.1 fL [facility] NRBC abs 0.00 0.00 - 0.01 K/cumm [facility] Blood specimen (specimen) 07/06/2020 11:07 PM BODY COVERER 07/06/2020 11:58 PM BODY COVERER us Obed Martinez MD LAB BLOOD ORDERABLES Fi nal Result [facility] [address] Department [place] [address] * (ABNORMAL) Comprehensive metabolic panel (07/06/2020 11:07 PM BODY COVERER) Sodium 132(L) 135 - 145 mmol/L [facility] Potassium, pl 4.9 3.3 - 4.9 mmol/L [facility] Chloride 93(L) 97 - 110 mmol/L [facility] CO2 27 22 - 32 mmol/L [facility] Anion gap 12 2 - 15 mmol/L [facility] BUN 15 8 - 25 mg/dL [facility] Creatinine 0.77 0.60 - 1.10 mg/dL [facility] Glucose 133 70 - 199 mg/dL [facility] Comment: Interpretive Data Fasting glucose >/= 126 mg/dl is diagnostic for diabetes. ?? Fasting is defined as no caloric intake for at least 8 hours. Fasting glucose between 100 mg/dl to 125 mg/dl is diagnostic of prediabetes. In a patient with classic symptoms of hyperglycemia or hyperglycemic crisis, a random glucose >/= 200 mg/dl is diagnostic for diabetes. In the absence of unequivocal hyperglycemia, results should be confirmed by repeat testing. The classification and Diagnosis of Diabetes Diabetes Care 2017;40 (Suppl. 1):S11. Current interpretive data was last revised 2017. Calcium 9.3 8.5 - 10.3 mg/dL [facility] Bilirubin, total 0.3 0.1 - 1.2 mg/dL [facility] Protein, pl 7.5 6.5 - 8.5 g/dL [facility] Albumin 3.3(L) 3.5 - 5.0 g/dL [facility] Alk phos 183(H) 40 - 130 Units/L [facility] ALT 20 7 - 45 Units/L [facility] AST 26 10 - 45 Units/L [facility] Blood specimen (specimen) 07/06/2020 11:07 PM BODY COVERER 07/06/2020 11:58 PM BODY COVERER Obed Martinez MD LAB BLOOD ORDERABLES Fi nal Result Performing Organization Address [facility]/State/ZIP Co de Phone Number [facility] [address] Department [place] [address] * [place] Fluoroscopy < 1 Hour (07/06/2020 6:10 PM BODY COVERER) Narrative [facility]_PACS_[facility] - 07/06/2020 6:12 PM BODY COVERER The images from this study are not interpreted by Radiology. ??Please refer to the physician's procedure / OR operative note. Ethel Amaro MD IMG FLUOROSCOPY PROC EDURES Final Result Performing Organization Address [facility]/ZIP Co de Phone Number [email or web address] * Mycobacteriology (AFB) culture Tissue Leg, left (07/06/2020 6:07 PM BODY COVERER) Report Final Report: No growth of acid-fast bacilli [facility] Tissue (Leg, left) 07/06/2020 6:07 PM BODY COVERER 07/07/2020 5:32 AM BODY COVERER Narrative [facility] - 09/02/2020 8:15 AM BODY COVERER LEFT TIBIA #3 Testing performed by [facility] ([phone]). Ethel Amaro MD LAB MICROBIOLOGY - G ENERAL ORDERABLES Final Result Performing Organization Address City/[facility] Co de Phone Number [facility] [address] [facility] [place] [address] * Mycology (fungal) culture Tissue Leg, left (07/06/2020 6:07 PM BODY COVERER) Report Final Report: No growth of fungus [facility] Tissue (Leg, left) 07/06/2020 6:07 PM BODY COVERER 07/07/2020 5:32 AM BODY COVERER Narrative [facility] - 08/04/2020 10:11 AM BODY COVERER LEFT TIBIA #3 Testing performed by [facility] ([phone]). Ethel Amaro MD LAB MICROBIOLOGY - G ENERAL ORDERABLES Final Result Performing Organization Address [facility] Co de Phone Number [facility] [place] [address] * (ABNORMAL) Tissue aerobic and anaerobic culture and gram stain Tissue Leg, left (07/06/2020 6:07 PMCST) Direct Specimen Exam Stain: Few polymorphonuclear leukocytes seen. Rare Gram Negative Bacilli Rare Gram Positive Cocci [facility] Report Final Report: Few Escherichia coli Few Proteus mirabilis Rare Mixed microorganisms. For susceptibility results, refer to accession number [id number] on the Tissue / Left leg culture from 07/07/2020 (.) [facility] Organism MIXED MICROORGANISMS. [facility] Organism ESCHERICHIA COLI [facility] Organism PROTEUS MIRABILIS [facility] Tissue (Leg, left) 07/06/2020 6:07 PM BODY COVERER 07/07/2020 5:32 AM BODY COVERER Narrative [facility] - 07/10/2020 11:13 AM BODY COVERER LEFT TIBIA #3 Testing performed by [facility] ([phone]) Specimens submitted from normally sterile body sites will have all bacterial morphotypes identified. Specimens that contain grossly mixed oleksandr and/or are from body sites that are not normally sterile will be examined for Staphylococcus aureus, Pseudomonas aeruginosa, beta-hemolytic strep, vancomycin-resistant Enterococcus, Bacteroides, Parabacteroides, Clostridium perfringens and fungus. If any of these are isolated, the organism will be reported. Current interpretive data was last revised on 2019. Ethel Amaro MD LAB MICROBIOLOGY - G ENERAL ORDERABLES Final Result Performing Organization Address City/[facility] Co de Phone Number [facility] [place] [address] * Mycobacteriology (AFB) culture Tissue Leg, left (07/06/2020 5:59 PM BODY COVERER) Report Final Report: No growth of acid-fast bacilli [facility] Tissue (Leg, left) 07/06/2020 5:59 PM BODY COVERER 07/07/2020 5:37 AM BODY COVERER Narrative [facility] - 09/02/2020 8:15 AM BODY COVERER LEFT TIBIA #2 Testing performed by [facility] ([phone]). Ethel Amaro MD LAB MICROBIOLOGY - G ENERAL ORDERABLES Final Result Performing Organization Address [facility] [place] [address] * Mycology (fungal) culture Tissue Leg, left (07/06/2020 5:59 PM BODY COVERER) Report Final Report: No growth of fungus [facility] Tissue (Leg, left) 07/06/2020 5:59 PM BODY COVERER 07/07/2020 5:37 AM BODY COVERER Narrative [facility] - 08/04/2020 10:10 AM BODY COVERER LEFT TIBIA #2 Testing performed by [facility] ([phone]). Ethel Amaro MD LAB MICROBIOLOGY - G ENERAL ORDERABLES Final Result Performing Organization Address City/[facility] Co de Phone Number [facility] [address] [place] [address] * (ABNORMAL) Tissue aerobic and anaerobic culture and gram stain Tissue Leg, left (07/06/2020 5:59 PMCST) Direct Specimen Exam Stain: Abundant polymorphonuclear leukocytes seen. Few Gram Positive Cocci Few Gram Negative Bacilli [facility] Report Final Report: Moderate Mixed aerobic and anaerobic microorganisms Includes the following: Moderate Proteus mirabilis Moderate Escherichia coli (.) [facility] Organism PROTEUS MIRABILIS [facility] Organism ESCHERICHIA COLI [facility] Organism MIXED AEROBIC AND ANAEROBIC MICROORGANISMS [facility] Tissue (Leg, left) 07/06/2020 5:59 PM BODY COVERER 07/07/2020 5:37 AM BODY COVERER Narrative [facility] - 07/10/2020 11:12 AM BODY COVERER LEFT TIBIA #2 Testing performed by [facility] ([phone]) Specimens submitted from normally sterile body sites will have all bacterial morphotypes identified. Specimens that contain grossly mixed oleksandr and/or are from body sites that are not normally sterile will be examined for Staphylococcus aureus, Pseudomonas aeruginosa, beta-hemolytic strep, vancomycin-resistant Enterococcus, Bacteroides, Parabacteroides, Clostridium perfringens and fungus. If any of these are isolated, the organism will be reported. Current interpretive data was last revised on 2019. Organism Antibiotic Method Susceptibility Proteus mirabilis Ampicillin INTERPRETATION Susceptible Proteus mirabilis Cefazolin INTERPRETATION Susceptible Proteus mirabilis Gentamicin INTERPRETATION Susceptible Proteus mirabilis Ampicillin with Sulbactam INTERPRETA TION Susceptible Proteus mirabilis Trimethoprim with Sulfamethoxazole I NTERPRETATION Susceptible Proteus mirabilis Meropenem INTERPRETATION Susceptible Proteus mirabilis Cefepime INTERPRETATION Susceptible Proteus mirabilis Ciprofloxacin INTERPRETATION Susceptible Proteus mirabilis Ceftazidime INTERPRETATION Susceptible Proteus mirabilis Ceftriaxone INTERPRETATION Susceptible Proteus mirabilis Piperacillin/Tazobactam INTERPRETATI ON Susceptible Escherichia coli Ampicillin INTERPRETATION Susceptible Escherichia coli Cefazolin INTERPRETATION Susceptible Escherichia coli Gentamicin INTERPRETATION Susceptible Escherichia coli Ampicillin with Sulbactam INTERPRETAT ION Susceptible Escherichia coli Trimethoprim with Sulfamethoxazole IN TERPRETATION Susceptible Escherichia coli Meropenem INTERPRETATION Susceptible Escherichia coli Cefepime INTERPRETATION Susceptible Escherichia coli Ciprofloxacin INTERPRETATION Susceptible Escherichia coli Ceftazidime INTERPRETATION Susceptible Escherichia coli Ceftriaxone INTERPRETATION Susceptible Escherichia coli Piperacillin/Tazobactam INTERPRETATIO N Susceptible Ethel Amaro MD LAB MICROBIOLOGY - G ENERAL ORDERABLES Final Result [facility] [place] [address] * Mycobacteriology (AFB) culture Tissue Leg, left (07/06/2020 5:56 PM BODY COVERER) Report Final Report: No growth of acid-fast bacilli [facility] Tissue (Leg, left) 07/06/2020 5:56 PM BODY COVERER 07/07/2020 5:35 AM BODY COVERER Narrative [facility] - 09/02/2020 8:15 AM BODY COVERER LEFT TIBIA #1 Testing performed by [facility] ([phone]). us Ethel Amaro MD LAB MICROBIOLOGY - G ENERAL ORDERABLES Final Result Performing Organization Address [facility] [place] [address] * Mycology (fungal) culture Tissue Leg, left (07/06/2020 5:56 PM BODY COVERER) Report Final Report: No growth of fungus [facility] Tissue (Leg, left) 07/06/2020 5:56 PM BODY COVERER 07/07/2020 5:35 AM BODY COVERER Narrative [facility] - 08/04/2020 10:10 AM BODY COVERER LEFT TIBIA #1 Testing performed by [facility] ([phone]). Ethel Amaro MD LAB MICROBIOLOGY - G ENERAL ORDERABLES Final Result Performing Organization Address City/[facility]/ZIP Co de Phone Number [facility] [place] [address] * (ABNORMAL) Tissue aerobic and anaerobic culture and gram stain Tissue Leg, left (07/06/2020 5:56 PMCST) Direct Specimen Exam Stain: Few polymorphonuclear leukocytes seen. Rare Gram Positive Cocci Rare Gram Negative Bacilli [facility] Report Final Report: Few Mixed microorganisms. Includes the following: Few Escherichia coli Few Proteus mirabilis For susceptibility results, refer to accession number [id number] on the Tissue / Left leg culture from 07/07/2020 (.) [facility] Organism MIXED MICROORGANISMS. [facility] Organism ESCHERICHIA COLI [facility] Organism PROTEUS MIRABILIS [facility] Tissue (Leg, left) 07/06/2020 5:56 PM BODY COVERER 07/07/2020 5:35 AM BODY COVERER Narrative [facility] - 07/10/2020 11:13 AM BODY COVERER LEFT TIBIA #1 Testing performed by [facility] ([phone]) Specimens submitted from normally sterile body sites will have all bacterial morphotypes identified. Specimens that contain grossly mixed oleksandr and/or are from body sites that are not normally sterile will be examined for Staphylococcus aureus, Pseudomonas aeruginosa, beta-hemolytic strep, vancomycin-resistant Enterococcus, Bacteroides, Parabacteroides, Clostridium perfringens and fungus. If any of these are isolated, the organism will be reported. Current interpretive data was last revised on 2019. Ethel Amaro MD LAB MICROBIOLOGY - G ENERAL ORDERABLES Final Result [facility] [address] Department [place] [address] * CT Tibia Fibula Left WO Contrast (07/06/2020 6:42 AM BODY COVERER) Anatomical Region Laterality Modality Lower Leg Left Computed Tomogra phy 07/06/2020 7:57 AM BODY COVERER Impressions 07/06/2020 9:02 AM BODY COVERER Periprosthetic fracture of the left proximal tibia and fibula, with changes of prior open reduction internal fixation. These fractures remain mildly displaced, mildly angulated, and nonunited, with overlying periosteal reaction, which can be seen in setting of infection. Dictated by: Adithya Terry M.D. The radiology attending physician has personally reviewed this study, and had reviewed and/or edited this written report and agrees with it. Electronically signed by: Lavell Lawson M.D. Narrative 07/06/2020 9:02 AM BODY COVERER EXAMINATION: CT LOWER LEG CALF LEFT WO CONTRAST HISTORY: 69-year-old with left periprosthetic fracture status post open reduction internal fixation, with prosthetic infection in 2019,, status post prior irrigations and debridement. ??Now with worsening edema and drainage. 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 ??Lucencies are noted about the distal aspect of the tibial component. ??Additional distal lateral valvular fixation plate, medial malleolus fixation screw, are also present. ??Topogram notes fixation plate on the distal right medial malleolus and radiodensity along the left great toe metatarsophalangeal joint. ?? The tibial fracture is nonunited with slightly laterally angulated, with mild displacement of a posterior fracture fragment and overlying periosteal reaction. ??The fibular fracture is also nonunited, with slight lateral and posterior angulation, and full shaft width posterior displacement. There is mild skin thickening overlying the anterior and medial aspect of the proximal tibia, without definite organized fluid collection several however, beam hardening artifact from adjacent hardware mildly limits evaluation. ??Diffuse muscle atrophy. Procedure Note Lavell Lawson MD - 07/06/2020 EXAMINATION: CT LOWER LEG CALF LEFT WO CONTRAST HISTORY: 69-year-old with left periprosthetic fracture status post open reduction internal fixation, with prosthetic infection in 2019,, status post prior irrigations and debridement. Now with worsening edema and drainage. 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 Lucencies are noted about the distal aspect of the tibial component. Additional distal lateral valvular fixation plate, medial malleolus fixation screw, are also present. Topogram notes fixation plate on the distal right medial malleolus and radiodensity along the left great toe metatarsophalangeal joint. The tibial fracture is nonunited with slightly laterally angulated, with mild displacement of a posterior fracture fragment and overlying periosteal reaction. The fibular fracture is also nonunited, with slight lateral and posterior angulation, and full shaft width posterior displacement. There is mild skin thickening overlying the anterior and medial aspect of the proximal tibia, without definite organized fluid collection several however, beam hardening artifact from adjacent hardware mildly limits evaluation. Diffuse muscle atrophy. IMPRESSION: Periprosthetic fracture of the left proximal tibia and fibula, with changes of prior open reduction internal fixation. These fractures remain mildly displaced, mildly angulated, and nonunited, with overlying periosteal reaction, which can be seen in setting of infection. Dictated by: Adithya Terry M.D. The radiology attending physician has personally reviewed this study, and had reviewed and/or edited this written report and agrees with it. Electronically signed by: Lavell Lawson M.D. Vianney Caballero MD IMG CT PROCEDURES Final Result * Urine culture Urine (07/05/2020 11:19 PM BODY COVERER) Report Final Report: Less than 100,000 colonies/mL (clinically insignificant growth based on current clinical standards) [facility] Organism (CLINICALLY INSIGNIFICANT GROWTH [facility] Urine 07/05/2020 11:1 9 PM BODY COVERER 07/06/2020 1:48 AM BODY COVERER Narrative [facility] - 07/07/2020 7:33 AM BODY COVERER Urine culture reflexed based upon urinalysis results. Testing performed by [facility] ([phone]) Vianney Caballero MD LAB MICROBIOLOGY - GENER AL ORDERABLES Final Result [facility] [address] Department [place] [address] * (ABNORMAL) Urinalysis, microscopic only (07/05/2020 11:19 PM BODY COVERER) WBC, ur >50(A) 0 - 5 /HPF [facility] RBC, ur 21-50(A) 0 - 2 /HPF [facility] Epithelial cells, squamous, ur 1-5 0 - 5 /HPF [facility] Bacteria, ur Trace(A) [facility] Yeast, ur 2+(A) [facility] Mucous, ur Present(A) [facility] Amorphous crystals, ur Trace(A) [facility] Culture Reflex Comment Reflex to urine culture will be performed. [facility] Urine 07/05/2020 11:1 9 PM BODY COVERER 07/05/2020 11:43 PM BODY COVERER us Vianney Caballero MD LAB URINE ORDERABLES [facility] al Result [facility] [address] Department [place] [address] * (ABNORMAL) Urinalysis reflex to microscopic and culture Urine (07/05/2020 11:19 PM BODY COVERER) Color, ur Yellow Yellow [facility] Clarity, ur Cloudy(A) Clear [facility] Specific gravity, ur 1.011 1.010 - 1.025 [facility] pH, urine 6 [facility] Protein, ur ql Negative Negative [facility] Glucose, ur ql Negative Negative [facility] Ketones, ur Trace Negative [facility] Bilirubin, ur Negative Negative [facility] Blood, ur Negative Negative [facility] Urobilinogen, ur <2.0 <2.0 mg/dL [facility] Nitrite, ur Negative Negative [facility] Leukocyte esterase, ur 3+(A) Negative [facility] UA reflex comment Reflex to microscopic UA will be performed. [facility] Urine 07/05/2020 11:1 9 PM BODY COVERER 07/05/2020 11:43 PM BODY COVERER Narrative [facility] - 07/05/2020 11:56 PM BODY COVERER ?? Urine pH is affected by diet, medications, systemic acid-base disturbances, and renal tubular function. ??pH may affect urinary stone formation. ??For example, urine pH below 6.0 may help reduce the tendency for calcium phosphate stones and pH greater than 6.0 may reduce the tendency for uric acid stone formation. Source: [facility] [employer]. Last revised 08-05-2017 Vianney Caballero MD LAB MICROBIOLOGY - GENER AL ORDERABLES Final Result Performing Organization Address [facility] [place] [address] * Sodium, urine, random (07/05/2020 11:19 PM BODY COVERER) Sodium, ur <20 mmol/L [facility] Comment: Repeated and Verified Interpretive Data No reference range established. Current interpretive data was last revised 2018. Urine 07/05/2020 11:1 9 PM BODY COVERER 07/05/2020 11:46 PM BODY COVERER Errol Villareal MD LAB URINE ORDERABLES Final Re sult Performing Organization Address [facility] [place] [address] * Osmolality, urine (07/05/2020 11:19 PM BODY COVERER) Osmo, ur 242 mOsm/kg [facility] Urine 07/05/2020 11:1 9 PM BODY COVERER 07/05/2020 11:46 PM BODY COVERER Errol Villareal MD LAB URINE ORDERABLES Final Re sult Performing Organization Address [facility] [place] [address] * Cortisol (07/05/2020 9:22 PM BODY COVERER) Cortisol 17.9 3.7 - 19.4 mcg/dL [facility] Comment: Interpretive Data Normal Range: ??3.7 - 19.4 mcg/dL; ??Evening: ??Half of morning value. ?? This analyte undergoes marked diurnal variation. ??Ranges indicated apply to morning specimens. ?? Current interpretive data was last revised 2013. Blood specimen (specimen) 07/05/2020 9:22 PM BODY COVERER 07/05/2020 11:20 PM BODY COVERER Errol Villareal MD LAB BLOOD ORDERABLES Final Re sult Performing Organization Address [facility] [place] [address] * TSH reflex to free T4 (07/05/2020 9:22 PM BODY COVERER) TSH 1.06 0.30 - 4.20 mcIUnit/mL [facility] Blood specimen (specimen) 07/05/2020 9:22 PM BODY COVERER 07/05/2020 11:20 PM BODY COVERER Errol Villareal MD LAB BLOOD ORDERABLES Final Re sult Performing Organization Address [facility] Co de Phone Number [facility] Department [place] [address] * (ABNORMAL) Osmolality, blood (07/05/2020 9:22 PM BODY COVERER) Osmo 268(L) 275 - 300 mOsm/kg [facility] Blood specimen (specimen) 07/05/2020 9:22 PM BODY COVERER 07/05/2020 11:20 PM BODY COVERER Errol Villareal MD LAB BLOOD ORDERABLES Final Re sult Performing Organization Address [facility] Co de Phone Number [facility] [place] [address] * Blood culture Blood (07/05/2020 9:22 PM BODY COVERER) Report Final Report: No growth [facility] Blood specimen (specimen) 07/05/2020 9:22 PM BODY COVERER 07/05/2020 11:41 PM BODY COVERER Ji QUINTERO - 07/10/2020 7:01 AM BODY COVERER 1. ?Blood cultures are incubated for 4 days on a continuously monitored blood culture system. The first report of a negative culture is issued within 24 hours of receipt of the specimen in the laboratory. 2. ?Positive culture results are reported as soon as they are detected. 3. ?The most important factor for detection of microbes in the setting of bloodstream infection is the volume of blood submitted for culture. Failure to collect an optimal blood volume can result in false negative blood cultures. For pediatric patients, the recommended blood volume to collect is 1 mL of blood per year of patient age (up to 20 mL) per blood culture set. For adult patients, 20 mL of blood, divided equally between aerobic and anaerobic blood culture bottles, is recommended for each blood culture set. 4. ?For blood cultures with Gram-positive cocci, a rapid molecular test for organism identification may be performed using the [employer] Gram-Positive Blood Culture Assay. This assay detects microbial DNA in positive blood culture broth via hybridization of target DNA to capture oligonucleotides on a microarray. This assay has been cleared by the [place] Food and Drug Administration and its performance characteristics have been verified by the [facility]. 5. ?For questions about this culture, contact the Microbiology Laboratory at [phone]. Interpretive data was last revised on 2019. us Vianney Caballero MD LAB MICROBIOLOGY - GENER AL ORDERABLES Final Result [facility] [address] Department [place] [address] * (ABNORMAL) Blood culture Blood (07/05/2020 9:22 PM BODY COVERER) Direct Specimen Exam Molecular Analysis: Staphylococcus epidermidis detected by the Verigene Blood Culture Nucleic Acid Test. This test does not exclude the possibility of a mixed bacterial infection. Notification of: Staphylococcus epidermidis called to and read back by: Dr. Bashir Peter, on 07/06/2020 20:04:56 by: JINNY Collazo [facility] Direct Specimen Exam Stain: Gram Positive Cocci in clusters Time to culture positivity (aerobic media): 16.5 hours Notification of: Gram Positive Cocci in clusters called to and read back by: Dr. Vianney Prieto, on 07/06/2020 17:11:54 by: JINNY Collazo [facility] Report Final Report: Staphylococcus epidermidis Single blood culture positive for this microorganism. ??Isolate is a possible contaminant. If a similar isolate is recovered from a second blood culture collected within 3 days of this culture, both will be evaluated and, if determined to be the same species, antimicrobial susceptibility testing will be performed. (.) [facility] Organism STAPHYLOCOCCUS EPIDERMIDIS [facility] Blood specimen (specimen) 07/05/2020 9:22 PM BODY COVERER 07/05/2020 11:41 PM BODY COVERER Narrative [facility] - 07/10/2020 7:10 AM BODY COVERER 1. ?Blood cultures are incubated for 4 days on a continuously monitored blood culture system. The first report of a negative culture is issued within 24 hours of receipt of the specimen in the laboratory. 2. ?Positive culture results are reported as soon as they are detected. 3. ?The most important factor for detection of microbes in the setting of bloodstream infection is the volume of blood submitted for culture. Failure to collect an optimal blood volume can result in false negative blood cultures. For pediatric patients, the recommended blood volume to collect is 1 mL of blood per year of patient age (up to 20 mL) per blood culture set. For adult patients, 20 mL of blood, divided equally between aerobic and anaerobic blood culture bottles, is recommended for each blood culture set. 4. ?For blood cultures with Gram-positive cocci, a rapid molecular test for organism identification may be performed using the [employer] Gram-Positive Blood Culture Assay. This assay detects microbial DNA in positive blood culture broth via hybridization of target DNA to capture oligonucleotides on a microarray. This assay has been cleared by the [place] Food and Drug Administration and its performance characteristics have been verified by the [facility]. 5. ?For questions about this culture, contact the Microbiology Laboratory at [phone]. Interpretive data was last revised on 2019. Vianney Caballero MD LAB MICROBIOLOGY - GENER AL ORDERABLES Final Result Performing Organization Address [facility] Co de Phone Number [facility] [place] [address] * Type and screen (07/05/2020 9:22 PM BODY COVERER) ABO Rh A Positive [facility] Triston, indirect Negative [facility] Blood specimen (specimen) 07/05/2020 9:22 PM BODY COVERER 07/05/2020 11:27 PM BODY COVERER Narrative [facility] - 07/06/2020 12:51 AM BODY COVERER Has the patient had Daratumumab or Isatuximab in the past 6 months?->Unknown Vianney Caballero MD LAB BLOOD BANK TEST ORDE RABLES Final Result Performing Organization Address [facility] [place] [address] * aPTT (07/05/2020 9:22 PM BODY COVERER) aPTT 32 25 - 37 sec [facility] Comment: Interpretive data Heparin therapeutic range: 60-90 seconds Range based on correlation with therapeutic heparin activity range of 0.3-0.7 units/ml. Current interpretive data was last revised on 2019. Blood specimen (specimen) 07/05/2020 9:22 PM BODY COVERER 07/05/2020 11:20 PM BODY COVERER Vianney Caballero MD LAB BLOOD ORDERABLES Fin al Result Performing Organization Address City/[facility] Co de Phone Number [facility] [place] [address] * ECG 12 lead (07/05/2020 7:29 PM BODY COVERER) Ventricular Rate EKG/Min 91 BPM [facility] Atrial Rate 91 BPM [facility] WA-Interval (MSEC) 168 ms [facility] QRS-Interval (MSEC) 86 ms [facility] QT-Interval (MSEC) 390 ms [facility] QTc 479 ms [facility] P [place] 31 degrees [facility] R [place] -21 degrees [facility] T [place] 40 degrees [facility] Diagnosis Normal sinus rhythm Voltage criteria for left ventricular hypertrophy Abnormal ECG No previous ECGs available This ECG was personally interpreted by the attending physician indicated below Confirmed by ANNALISA/JOE WATSON ([id number]) on 07/10/2020 2:27:32 PM [facility] 07/05/2020 7:29 PM BODY COVERER 07/10/2020 2:27 PM BODY COVERER Vianney Caballero MD ECG ORDERABLES Final Re sult Performing Organization Address [facility] Co de Phone Number [facility] * XR Outside Reference (07/05/2020 6:15 PM BODY COVERER) Impressions [facility] - 07/05/2020 6:15 PM BODY COVERER These images are for Reference purposes only and have not been reviewed by [facility]. ??There will be no report generated by a [facility] Radiologist. Narrative [facility] - 07/05/2020 6:15 PM BODY COVERER EXAMINATION: ??Images For Reference Purposes Only Vianney Caballero MD IMG XR PROCEDURES Final Result Performing Organization Address City/[facility]/ZIP Co de Phone Number [email or web address] * Hemoglobin A1c (07/05/2020 6:13 PM BODY COVERER) Hgb A1C 5.3 4.0 - 5.6 % [facility] Estimated Average Glucose 105 mg/dL [facility] Comment: The ADA recommends reporting an estimated Average Glucose (eAG) with all Hemoglobin A1c results using the equation derived from a study of 507 normal and diabetic adults. ??Minority populations were underrepresented and children were not included. ?? (Diabetes Care 31:1846-5300, 2008). ??The eAG is not equivalent to a fasting glucose. Blood specimen (specimen) 07/05/2020 6:13 PM BODY COVERER 07/05/2020 6:57 PM BODY COVERER us Vianney Caballero MD LAB BLOOD ORDERABLES Fin al Result [facility] [address] Department [place] [address] * (ABNORMAL) Differential, auto (07/05/2020 6:13 PM BODY COVERER) Neutrophil abs 19.3(H) 1.7 - 6.5 K/cumm [facility] Imm gran abs 1.6(H) 0.0 - 0.1 K/cumm [facility] Lymphocyte abs 1.5 0.8 - 3.3 K/cumm [facility] Monocyte abs 1.4(H) 0.2 - 0.8 K/cumm [facility] Eosinophil abs 0.2 0.0 - 0.5 K/cumm [facility] Basophil abs 0.1 0.0 - 0.1 K/cumm [facility] Neutrophil pct 80.3 % [facility] Comment: Interpretive Data Percent cell count reference ranges are not reported, since discordance with absolute values may lead to misinterpretation of CBC data. Current Interpretive Data was last revised on 2017. Imm gran pct 6.5 % [facility] Comment: Interpretive Data Percent cell count reference ranges are not reported, since discordance with absolute values may lead to misinterpretation of CBC data. Current Interpretive Data was last revised on 2017. Lymphocyte pct 6.2 % [facility] Comment: Interpretive Data Percent cell count reference ranges are not reported, since discordance with absolute values may lead to misinterpretation of CBC data. Current Interpretive Data was last revised on 2017. Monocyte pct 5.9 % [facility] Comment: Interpretive Data Percent cell count reference ranges are not reported, since discordance with absolute values may lead to misinterpretation of CBC data. Current Interpretive Data was last revised on 2017. Eosinophil pct 0.7 % [facility] Comment: Interpretive Data Percent cell count reference ranges are not reported, since discordance with absolute values may lead to misinterpretation of CBC data. Current Interpretive Data was last revised on 2017. Basophil pct 0.4 % [facility] Comment: Interpretive Data Percent cell count reference ranges are not reported, since discordance with absolute values may lead to misinterpretation of CBC data. Current Interpretive Data was last revised on 2017. Blood specimen (specimen) 07/05/2020 6:13 PM BODY COVERER 07/05/2020 6:54 PM BODY COVERER Vianney Caballero MD LAB BLOOD ORDERABLES Fin al Result Performing Organization Address [facility] Co de Phone Number [facility] Department [place] [address] * (ABNORMAL) D-dimer, quantitative (07/05/2020 6:13 PM BODY COVERER) D-Dimer 1,324(H) <=499 ng/mL FEU [facility] Comment: Interpretive data FDA approved the D-dimer, in conjunction with a low or moderate pretest probability score, to exclude venous thromboembolic events (VTE) (PE and DVT) in outpatients when the D-dimer result is < 500 ng/ml FEU. ?? Evidence supports using an age-adjusted D-dimer cut-off for outpatients older than 50 (age x 10) to improve specificity without sacrificing sensitivity. Example: age 68, VTE cut-off 680 ng/ml FEU. References; Schouten HT et al. Brit Med J. 2013;346:f2492. Shaina et al. Annals Int Med. 2015;163:701-11. Current interpretive data was last revised on 2019. Blood specimen (specimen) 07/05/2020 6:13 PM BODY COVERER 07/05/2020 6:58 PM BODY COVERER Vianney Caballero MD LAB BLOOD ORDERABLES Fin al Result Performing Organization Address [facility] Co de Phone Number [facility] Department [place] [address] * (ABNORMAL) Protime-INR (07/05/2020 6:13 PM BODY COVERER) [facility] PT 14.6(H) 8.6 - 13.0 sec [facility] INR 1.3(H) 0.8 - 1.2 [facility] Comment: Interpretive data Oral anticoagulant therapeutic ranges: Venous thromboembolism prophylaxis or treatment: 2.0-3.0 CARDIOLOGY Standard range: 2.0-3.0 High-intensity range: 2.5-3.5 Refer to indication-specific guidelines for appropriate target ranges for prosthetic heart valve replacement. Current interpretive data was last revised on 2019. Blood specimen (specimen) 07/05/2020 6:13 PM BODY COVERER 07/05/2020 6:58 PM BODY COVERER us Vianney Caballero MD LAB BLOOD ORDERABLES Fin al Result [facility] [address] Department [place] [address] * (ABNORMAL) CBC with auto differential (07/05/2020 6:13 PM BODY COVERER) [facility] WBC 24.0(H) 3.8 - 9.9 K/cumm [facility] Hgb 11.1(L) 11.9 - 15.5 g/dL [facility] Hct 32.5(L) 35.6 - 45.5 % [facility] Plt 420(H) 150 - 400 K/cumm [facility] MPV 9.6 9.1 - 12.3 fL [facility] RBC 3.57(L) 3.90 - 5.20 M/cumm [facility] MCV 91.0 81.3 - 96.4 fL [facility] MCH 31.1 27.1 - 33.3 pg [facility] MCHC 34.2 32.3 - 35.7 g/dL [facility] RDW CV 11.8 11.1 - 14.9 % [facility] RDW SD 39.4 35.7 - 48.1 fL [facility] NRBC abs 0.00 0.00 - 0.01 K/cumm [facility] Blood specimen (specimen) 07/05/2020 6:13 PM BODY COVERER 07/05/2020 6:54 PM BODY COVERER Vianney Caballero MD LAB BLOOD ORDERABLES Fin al Result [facility] [place] [address] * (ABNORMAL) CRP (acute phase) (07/05/2020 6:13 PM BODY COVERER) CRP 236.6(H) <=10.0 mg/L [facility] Comment:Repeated on Dilution Blood specimen (specimen) 07/05/2020 6:13 PM BODY COVERER 07/05/2020 6:54 PM BODY COVERER Vianney Caballero MD LAB BLOOD ORDERABLES Fin al Result Performing Organization Address [facility] Co de Phone Number [facility] [place] [address] * (ABNORMAL) Erythrocyte sedimentation rate (07/05/2020 6:13 PM BODY COVERER) Erythrocyte sedimentation rate 100(H) 1 - 30 mm/hr [facility] Blood specimen (specimen) 07/05/2020 6:13 PM BODY COVERER 07/05/2020 6:54 PM BODY COVERER Vianney Caballero MD LAB BLOOD ORDERABLES Fin al Result [facility] [place] [address] * Lactate (07/05/2020 6:13 PM BODY COVERER) Lactate 1.0 0.7 - 2.0 mmol/L [facility] Blood specimen (specimen) 07/05/2020 6:13 PM BODY COVERER 07/05/2020 6:54 PM BODY COVERER Vianney Caballero MD LAB BLOOD ORDERABLES Fin al Result Performing Organization Address [facility] de Phone Number [facility] [place] [address] * Phosphorus (07/05/2020 6:13 PM BODY COVERER) Phosphorus, pl 3.9 2.3 - 4.5 mg/dL [facility] Blood specimen (specimen) 07/05/2020 6:13 PM BODY COVERER 07/05/2020 6:54 PM BODY COVERER Vianney Caballero MD LAB BLOOD ORDERABLES Fin al Result Performing Organization Address [facility] de Phone Number [facility] [place] [address] * Magnesium (07/05/2020 6:13 PM BODY COVERER) Magnesium 1.8 1.4 - 2.5 mg/dL [facility] Blood specimen (specimen) 07/05/2020 6:13 PM BODY COVERER 07/05/2020 6:54 PM BODY COVERER Vianney Caballero MD LAB BLOOD ORDERABLES Fin al Result Performing Organization Address [facility] [place] [address] * (ABNORMAL) Hepatic function panel (07/05/2020 6:13 PM BODY COVERER) Bilirubin, total 0.3 0.1 - 1.2 mg/dL [facility] Bilirubin, direct <0.2 0.1 - 0.3 mg/dL [facility] Protein, pl 7.4 6.5 - 8.5 g/dL [facility] Albumin 3.4(L) 3.5 - 5.0 g/dL [facility] Alk phos 199(H) 40 - 130 Units/L [facility] ALT 26 7 - 45 Units/L [facility] AST 34 10 - 45 Units/L [facility] Blood specimen (specimen) 07/05/2020 6:13 PM BODY COVERER 07/05/2020 6:54 PM BODY COVERER Vianney Caballero MD LAB BLOOD ORDERABLES Fin al Result [facility] [address] Department [place] [address] * (ABNORMAL) Basic metabolic panel (07/05/2020 6:13 PM BODY COVERER) Sodium 126(L) 135 - 145 mmol/L [facility] Potassium, pl 4.3 3.3 - 4.9 mmol/L [facility] Chloride 90(L) 97 - 110 mmol/L [facility] CO2 29 22 - 32 mmol/L [facility] Anion gap 7 2 - 15 mmol/L [facility] BUN 16 8 - 25 mg/dL [facility] Creatinine 1.02 0.60 - 1.10 mg/dL [facility] Glucose 101 70 - 199 mg/dL [facility] Comment: Interpretive Data Fasting glucose >/= 126 mg/dl is diagnostic for diabetes. ?? Fasting is defined as no caloric intake for at least 8 hours. Fasting glucose between 100 mg/dl to 125 mg/dl is diagnostic of prediabetes. In a patient with classic symptoms of hyperglycemia or hyperglycemic crisis, a random glucose >/= 200 mg/dl is diagnostic for diabetes. In the absence of unequivocal hyperglycemia, results should be confirmed by repeat testing. The classification and Diagnosis of Diabetes Diabetes Care 2017;40 (Suppl. 1):S11. Current interpretive data was last revised 2017. Calcium 9.2 8.5 - 10.3 mg/dL [facility] Blood specimen (specimen) 07/05/2020 6:13 PM BODY COVERER 07/05/2020 6:54 PM BODY COVERER Vianney Caballero MD LAB BLOOD ORDERABLES Fin al Result [facility] [address] Department [place] [address] * XR Chest 1 View (07/05/2020 5:22 PM BODY COVERER) Anatomical Region Laterality Modality Body, Chest N/A Computed Radiogr aphy 07/06/2020 10:3 0 AM BODY COVERER Impressions 07/06/2020 12:10 PM BODY COVERER Comparison chest radiograph 06/30/2019. The lungs are clear. ??There is no focal opacity or pulmonary edema. There is no pleural effusion or pneumothorax. ??Cardiomediastinal silhouette is stable with normal heart size and atherosclerotic calcification of the mildly tortuous thoracic aorta. Dictated by: Mathew Guzmán M.D. The radiology attending physician has personally reviewed this study, and had reviewed and/or edited this written report and agrees with it. Electronically signed by: Pura Rosas M.D. Narrative 07/06/2020 12:10 PM BODY COVERER EXAMINATION: 1 view chest radiograph Procedure Note Pura Rosas MD - 07/06/2020 EXAMINATION: 1 view chest radiograph IMPRESSION: Comparison chest radiograph 06/30/2019. The lungs are clear. There is no focal opacity or pulmonary edema. There is no pleural effusion or pneumothorax. Cardiomediastinal silhouette is stable with normal heart size and atherosclerotic calcification of the mildly tortuous thoracic aorta. Dictated by: Mathew Guzmán M.D. The radiology attending physician has personally reviewed this study, and had reviewed and/or edited this written report and agrees with it. Electronically signed by: Pura Rosas M.D. Vianney Caballero MD IMG XR PROCEDURES Final Result * (ABNORMAL) COVID-19 Coronavirus RNA (06/21/2020) SCRIBED COVID-19 Coronavirus RNA Detected( A) Not Detected, Negative, Undetected Comment:[employer]ISTANT RNA PCR at [facility] in [place] 06/21/2020 us Historical Provider LAB MICROBIOLOGY - GENERA L ORDERABLES Final Result documented in this encounter Visit Diagnoses Diagnosis Diagnosis unknown Left leg wound Unspecified disorder of skin and subcutaneous tissue COVID-19 Left leg wound Unspecified disorder of skin and subcutaneous tissue Moderate essential hypertension Open displaced comminuted fracture of shaft of left tibia, type IIIA, IIIB, or IIIC Chronic respiratory failure (HCC) Chronic respiratory failure Hyponatremia Hyposmolality and/or hyponatremia UTI (urinary tract infection) Urinary tract infection, site not specified Leg skin lesion, left Unspecified disorder of skin and subcutaneous tissue documented in this encounter Admitting Diagnoses Diagnosis Leg skin lesion, left Unspecified disorder of skin and subcutaneous tissue documented in this encounter Administered Medications Inactive Administered Medications - up to 3 most recent administrations Medication Order MAR Action Action Date Dose Rate Site acetaminophen (TYLENOL) tablet 1,000 mg 1,000 mg, oral, Every 8 hours, First dose on Wed07/06/20 at 0815, On hold since Wed07/09/2020 at 0639 until manually unheld Given 07/09/2020 3:46 AM BODY COVERER 1,000 mg Given 07/08/2020 5:35 PM BODY COVERER 1,000 mg Given 07/08/2020 9:56 AM BODY COVERER 1,000 mg albuterol HFA (PROVENTIL HFA,VENTOLIN HFA,PROAIR HFA) 90 mcg/actuation inhaler 2 puff 2 puff, inhalation, Every 4 hours PRN (leather toggler), shortness of breath, Starting on Wed07/05/20 at 1805, Indications: Acute Asthma AttackIndications:Acute Asthma Attack Given 07/08/2020 10:29 AM BODY COVERER 2 puf fs amLODIPine (NORVASC) tablet 10 mg 10 mg, oral, Daily, First dose on Wed07/05/20 at 1830, Indications: hypertensionIndications:hypertension Given 07/12/2020 8:59 AM BODY COVERER 10 mg Given 07/11/2020 8:21 AM BODY COVERER 10 mg Given 07/10/2020 9:00 AM BODY COVERER 10 mg amoxicillin-clavulanate (AUGMENTIN) 875-125 mg per tablet 875 mg of amoxicillin 875 mg of amoxicillin, oral, 2 times daily, First dose on Wed07/12/20 at 1000, For 28 doses, Indications: Skin/Soft Tissue InfectionIndications:Skin/Soft Tissue Infection Given 07/12/2020 11:41 AM BODY COVERER 875 mg of amoxicillin atorvastatin (LIPITOR) tablet 10 mg 10 mg, oral, Nightly, First dose on Wed07/05/20 at 2100 Given 07/11/2020 5:20 PM BODY COVERER 10 mg Given 07/10/2020 6:03 PM BODY COVERER 10 mg Given 07/09/2020 5:31 PM BODY COVERER 10 mg baclofen (LIORESAL) tablet 2.5 mg 2.5 mg, oral, 3 times daily with meals, First dose (after last modification) on 07/07/20 at 0800 Given 07/12/2020 11:42 AM BODY COVERER 2.5 mg Given 07/11/2020 9:32 PM BODY COVERER 2.5 mg Given 07/11/2020 12:09 PM BODY COVERER 2.5 mg bisacodyl EC (DULCOLAX EC) tablet 10 mg 10 mg, oral, Nightly, First dose on Wed07/10/20 at 2100, Do not crush, chew, cut, dissolve, open or otherwise manipulate tablet/capsule., Indications: constipationIndications:constipation Given 07/11/2020 8:22 PM BODY COVERER 10 mg Given 07/10/2020 8:45 PM BODY COVERER 10 mg busPIRone (BUSPAR) tablet 5 mg 5 mg, oral, Daily, First dose on Wed07/05/20 at 1830 Given 07/12/2020 9:00 AM BODY COVERER 5 mg Given 07/11/2020 8:21 AM BODY COVERER 5 mg Given 07/10/2020 9:01 AM BODY COVERER 5 mg docusate sodium (COLACE) capsule 200 mg 200 mg, oral, Daily, First dose (after last modification) on Mercedes 07/11/20 at 0900, Indications: constipationIndications:constipation Given 07/12/2020 9:00 AM BODY COVERER 200 mg Given 07/11/2020 8:21 AM BODY COVERER 200 mg enoxaparin (LOVENOX) syringe 40 mg 40 mg, subcutaneous, Daily (for enoxaparin), First dose (after last modification) on 07/06/20 at 2130, Indications: Deep Vein Thrombosis PreventionIndications:Deep Vein Thrombosis Prevention Given 07/11/2020 8:22 PM BODY COVERER 40 mg Right Lower Abdomen Given 07/07/2020 8:46 PM BODY COVERER 40 mg Le ft Lower Abdomen Given 07/06/2020 9:17 PM BODY COVERER 40 mg Le ft Lower Abdomen fluticasone propionate (FLONASE) 50 mcg/actuation nasal spray 2 spray 2 spray, each nostril, Daily, First dose on Wed07/05/20 at 1830 Given 07/12/2020 9:40 AM BODY COVERER 2 sprays Given 07/10/2020 9:00 AM BODY COVERER 2 sprays Given 07/09/2020 8:14 AM BODY COVERER 2 sprays furosemide (LASIX) tablet 40 mg 40 mg, oral, Daily, First dose on Wed07/11/20 at 2015 Given 07/12/2020 9:00 AM BODY COVERER 40 mg Given 07/11/2020 8:22 PM BODY COVERER 40 mg gabapentin (NEURONTIN) capsule 400 mg 400 mg, oral, Every 8 hours, First dose on Wed07/05/20 at 1830 Given 07/12/2020 11:41 AM BODY COVERER 400 mg Given 07/12/2020 2:34 AM BODY COVERER 400 mg Given 07/11/2020 5:21 PM BODY COVERER 400 mg LORazepam (ATIVAN) tablet 0.5 mg 0.5 mg, oral, Every 6 hours PRN, anxiety, Starting on Wed07/11/20 at 1145 Given 07/12/2020 9:07 AM BODY COVERER 0.5 mg Given 07/11/2020 11:54 PM BODY COVERER 0.5 mg Given 07/11/2020 5:21 PM BODY COVERER 0.5 mg losartan (COZAAR) tablet 50 mg 50 mg, oral, Daily, First dose on Wed07/05/20 at 1830 Given 07/12/2020 9:00 AM BODY COVERER 50 mg Given 07/11/2020 8:22 AM BODY COVERER 50 mg Given 07/10/2020 9:01 AM BODY COVERER 50 mg metoprolol tartrate (LOPRESSOR) immediate release tablet 25 mg 25 mg, oral, Every 6 hours scheduled, First dose on Wed07/05/20 at 1830 Given 07/12/2020 11:44 AM BODY COVERER 25 mg Given 07/12/2020 5:06 AM BODY COVERER 25 mg Given 07/11/2020 11:14 PM BODY COVERER 25 mg morphine injection 4 mg 4 mg, intravenous, Administer over 4 Minutes, Every 4 hours PRN, 2nd line for pain, Starting on Wed07/09/20 at 0641 Given 07/12/2020 11:50 AM BODY COVERER 4 mg Given 07/12/2020 6:09 AM BODY COVERER 4 mg Given 07/11/2020 11:09 PM BODY COVERER 4 mg ondansetron ODT (ZOFRAN-ODT) disintegrating tablet 8 mg 8 mg, oral, Every 8 hours PRN, nausea, vomiting, Starting on Mercedes 07/11/20 at 1145 oxyCODONE (ROXICODONE) tablet 10 mg 10 mg, oral, Every 4 hours PRN, 1st line for pain, Starting on Tu07/09/20 at 1049, Indications: PainIndications:Pain Given 07/12/2020 9:07 AM BODY COVERER 10 mg Given 07/12/2020 5:21 AM BODY COVERER 10 mg Given 07/11/2020 9:32 PM BODY COVERER [address] (PROTONIX) extended release tablet 40 mg 40 mg, oral, Daily, First dose on Wed07/05/20 at 1830, Do not crush, chew, cut, dissolve, open or otherwise manipulate tablet/capsule., Indications: Stress Ulcer ProphylaxisIndications:Stress Ulcer Prophylaxis Given 07/12/2020 9:00 AM BODY COVERER 40 mg Given 07/11/2020 8:22 AM BODY COVERER 40 mg Given 07/10/2020 9:00 AM BODY COVERER 40 mg ramelteon (ROZEREM) tablet 8 mg 8 mg, oral, Nightly, First dose on Wed07/10/20 at 2100, Indications: Sleep-Onset InsomniaIndications:Sleep-Onset Insomnia Given 07/11/2020 8:22 PM BODY COVERER 8 m g Given 07/10/2020 8:45 PM BODY COVERER 8 mg sodium chloride 0.9 % irrigation As needed, Starting on 07/06/20 at 1749, Intra-Op Given 07/06/2020 5:49 PM BODY COVERER 3,000 mL Surgical Site sodium chloride 0.9% flush 0.5-20 mL 0.5-20 mL, intra-catheter, Every 8 hours scheduled, First dose on Wed07/05/20 at 1645, Flush volume based on line type and size. Given 07/12/2020 5:06 AM BODY COVERER 10 mL Given 07/11/2020 8:30 PM BODY COVERER 10 mL Given 07/11/2020 12:10 PM BODY COVERER 10 mL sodium chloride 0.9% flush 0.5-20 mL 0.5-20 mL, intra-catheter, As needed, line care, Starting on Wed07/05/20 at 1609, Flush volume based on line type and size. Flush before and after each use. Given 07/08/2020 3:10 AM BODY COVERER 10 mL Given 07/08/2020 2:18 AM BODY COVERER 10 mL Given 07/07/2020 11:22 PM BODY COVERER 10 mL sodium chloride 0.9% flush 5-10 mL 5-10 mL, intra-catheter, Every 8 hours scheduled, First dose on Wed07/07/20 at 1400, Flush volume based on line type, size, and protocol. Given 07/11/2020 11:09 PM BODY COVERER 10 mL Given 07/11/2020 12:10 PM BODY COVERER 10 mL Given 07/11/2020 6:23 AM BODY COVERER 10 mL sodium chloride 0.9% flush 5-10 mL 5-10 mL, intra-catheter, As needed, line care, with each use, Starting on Wed07/07/20 at 1038, Flush volume based on line type, size, and protocol. spironolactone (ALDACTONE) tablet 25 mg 25 mg, oral, Daily, First dose on Wed07/05/20 at 1830, On hold since Wed07/12/2020 at 0919 until manually unheld Given 07/12/2020 9:00 AM BODY COVERER 25 mg Given 07/11/2020 8:21 AM BODY COVERER 25 mg Given 07/06/2020 9:02 AM BODY COVERER 25 mg triamcinolone (KENALOG) 0.1 % cream topical, 2 times daily, First dose on Wed07/11/20 at 2100, Apply to affected area: rash Given 07/12/2020 11:41 AM BODY COVERER documented in this encounter Discontinued Medications Medication Sig Discontinue Reason Start Date End Da te doxycycline 100 mg tablet 05/01/2020 07/05/2020 cephalexin (KEFLEX) 500 mg capsule 04/24/2020 07/05/2020 ALPRAZolam (XANAX) 0.25 mg tablet 04/02/2020 07/05/2020 oxyCODONE (ROXICODONE) 5 mg immediate release tabletIndications:Pain Take 1 tablet (5 mg total) by mouth every 4 (four) hours as needed for pain Reorder 07/12/2020 07/12/2020 oxyCODONE ER (OxyCONTIN) 10 mg 12 hr abuse-deterrent tablet Take 1 tablet (10 mg total) by mouth 2 (two) times a day Reorder 07/12/2020 07/12/2020 oxyCODONE (ROXICODONE) 10 mg tabletIndications:Pain Take 1 tablet (10 mg total) by mouth every 4 (four) hours as needed for pain Stop Taking at Discharge 07/06/2019 07/12/2020 oxyCODONE-acetaminophe n (PERCOCET) 5-325 mg per tablet Stop Taking at Discharge 01/07/2020 07/12/2020 oxyCODONE ER (OxyCONTIN) 10 mg 12 hr abuse-deterrent tablet Take 1 tablet (10 mg total) by mouth 2 (two) times a day Reorder 07/12/2020 07/12/2020 documented as of this encounter Active and Recently Administered Medications Times are shown in BODY COVERER. Scheduled Medication Order 07/10/2020 07/11/2020 07/12/2020 acetaminophen (TYLENOL) tablet 1,000 mg 1,000 mg, oral, Every 8 hours, First dose on Wed07/06/20 at 0815, On hold since Wed07/09/2020 at 0639 until manually unheld 0200 (Dose Auto Held - Provider: Obed Maritnez MD)1000 (Dose Auto Held - Provider: Obed Martinez MD)1800 (Dose Auto Held - Provider: Obed Martinez MD) 0200 (Dose Auto Held - Provider: Obed Martinez MD)1000 (Dose Auto Held - Provider: Obed Martinez MD)1800 (Hold - Provider: Qi Vidal RN - Reason: See Provider Order) 0200 (Hold - Provider: Qi Vidal RN - Reason: See Provider Order)1000 (Dose Auto Held - Provider: Obed Martinez MD)1910 (MAR Unhold - Provider: Automatic Discharge Provider) amLODIPine (NORVASC) tablet 10 mg 10 mg, oral, Daily, First dose on Wed07/05/20 at 1830, Indications: hypertension 0900 (Given - Provider: Genie Elliott, DARCI) 0821 (Given - Provider: Breanna Rodriguez, DARCI) 0859 (Given - Provider: Kenzie Salazar, DARCI) amoxicillin-clavulanate (AUGMENTIN) 875-125 mg per tablet 875 mg of amoxicillin 875 mg of amoxicillin, oral, 2 times daily, First dose on Wed07/12/20 at 1000, For 28 doses, Indications: Skin/Soft Tissue Infection 1141 (Given - Provider: Kenzie Salazar RN) atorvastatin (LIPITOR) tablet 10 mg 10 mg, oral, Nightly, First dose on Wed07/05/20 at 2100 1803 (Given - Provider: Genie Elliott, DARCI) 1720 (Given - Provider: Breanna Rodriguez RN) baclofen (LIORESAL) tablet 2.5 mg 2.5 mg, oral, 3 times daily with meals, First dose (after last modification) on Wed07/07/20 at 0800 0900 (Given - Provider: Genie Elliott RN)1148 (Given - Provider: Genie Elliott RN)1803 (Given - Provider: Genie Elliott RN) 1011 (Not Given - Provider: Breanna Rodriguez RN - Reason: Medication not available)1209 (Given - Provider: Breanna Rodriguez RN)2132 (Given - Provider: Santy Brandt RN - Comment: Med not available at 1845) 1142 (Given - Provider: Kenzie Salazar RN)1145 (Not Given - Provider: Kenzie Salazar RN - Reason: Medication not available) bisacodyl EC (DULCOLAX EC) tablet 10 mg 10 mg, oral, Nightly, First dose on Wed07/10/20 at 2100, Do not crush, chew, cut, dissolve, open or otherwise manipulate tablet/capsule., Indications: constipation 2044 (Given - Provider: Jesse Waterman RN) 2021 (Given - Provider: Santy Brandt RN) busPIRone (BUSPAR) tablet 5 mg 5 mg, oral, Daily, First dose on Wed07/05/20 at 1830 0901 (Given - Provider: Genie Elliott RN) 0821 (Given - Provider: Breanna Rodriguez RN) 0900 (Given - Provider: Kenzie Salazar RN) cefepime (MAXIPIME) 1,000 mg/10 mL in sterile water (premix) 1,000 mg (CANCELED) 1,000 mg, intravenous, at 20 mL/hr, Administer over 30 Minutes, Every 8 hours, First dose on Wed07/06/20 at 1600, Indications: Bone/Joint Infection, Skin/Soft Tissue Infection 0205 (New Bag - Provider: Jesse Waterman, RN)0900 (New Bag - Provider: Genie Elliott, RN)1805 (New Bag - Provider: Genie Elliott, RN) 0240 (New Bag - Provider: Jesse Waterman RN)1019 (New Bag - Provider: Breanna Rodriguez, DARCI)1826 (New Bag - Provider: Nancie Isabel, DARCI) 0234 (New Bag - Provider: Qi Vidal, DARCI)0908 (New Bag - Provider: Kenzie Salazar, DARCI) diphenhydrAMINE (BENADRYL) tab/cap 25 mg (COMPLETED) 25 mg, oral, Once, On Wed07/11/20 at 2015, For 1 dose 2021 (Given - Provider: Santy Brandt RN) diphenhydrAMINE (BENADRYL) tab/cap 25 mg (COMPLETED) 25 mg, oral, Once, On Wed07/12/20 at 0615, For 1 dose 0543 (Given - Provider: Qi Vidal, DARCI) docusate sodium (COLACE) capsule 100 mg (CANCELED) 100 mg, oral, Daily, First dose on Wed07/05/20 at 1830, Indications: constipation 0900 (Given - Provider: Genie Elliott, DARCI) docusate sodium (COLACE) capsule 200 mg 200 mg, oral, Daily, First dose (after last modification) on Mercedes 07/11/20 at 0900, Indications: constipation 0821 (Given - Provider: Breanna Rodriguez, DARCI) 0900 (Given - Provider: Kenzie Salazar, DARCI) enoxaparin (LOVENOX) syringe 40 mg 40 mg, subcutaneous, Daily (for enoxaparin), First dose (after last modification) on [facility] 07/06/20 at 2130, Indications: Deep Vein Thrombosis Prevention 2100 (Dose Auto Held - Provider: Bashir Peter MD PhD) 0647 (MAR Unhold - Provider: Obed Martinez MD)2021 (Given - Provider: Santy Brandt, DARCI) fluticasone propionate (FLONASE) 50 mcg/actuation nasal spray 2 spray 2 spray, each nostril, Daily, First dose on Wed07/05/20 at 1830 0900 (Given - Provider: Genie Elliott, DARCI) 1021 (Not Given - Provider: Breanna Rodriguez RN - Reason: Medication not available) 0940 (Given - Provider: Kenzie Salazar, DARCI) furosemide (LASIX) tablet 40 mg 40 mg, oral, Daily, First dose on Wed07/11/20 at 2014 2021 (Given - Provider: Santy Brandt RN) 0900 (Given - Provider: Kenzie Salazar, DARCI) gabapentin (NEURONTIN) capsule 400 mg 400 mg, oral, Every 8 hours, First dose on Wed07/05/20 at 1830 0206 (Given - Provider: Jesse Waterman RN)0900 (Given - Provider: Genie Elliott, DARCI)1803 (Given - Provider: Genie Elliott, DARCI) 0240 (Given - Provider: Jesse Waterman RN)1020 (Given - Provider: Breanna Rodriguez RN)1721 (Given - Provider: Breanna Rodriguez RN) 0234 (Given - Provider: Qi Vidal RN)1141 (Given - Provider: Kenzie Salazar, DARCI) HYDROmorphone (DILAUDID) injection 0.5 mg (COMPLETED) 0.5 mg, intravenous, Administer over 2 Minutes, Once, On Wed07/11/20 at 2044, For 1 dose 2024 (Given - Provider: Santy Brandt RN) losartan (COZAAR) tablet 50 mg 50 mg, oral, Daily, First dose on Wed07/05/20 at 1830 0901 (Given - Provider: Genie Elliott RN) 0822 (Given - Provider: Breanna Rodriguez RN) 0900 (Given - Provider: Kenzie Salazar RN) metoprolol tartrate (LOPRESSOR) immediate release tablet 25 mg 25 mg, oral, Every 6 hours scheduled, First dose on Wed07/05/20 at 1830 0618 (Given - Provider: Jesse Waterman RN)1148 (Given - Provider: Genie Elliott, DACRI)1803 (Given - Provider: Genie Elliott, DARCI)2354 (Given - Provider: Jesse Waterman RN) 0622 (Given - Provider: Jesse Waterman RN)1210 (Given - Provider: Breanna Rodriguez, DARCI)1721 (Given - Provider: Breanna Rodriguez, DARCI)2314 (Given - Provider: Santy Brandt, DARCI) 0506 (Given - Provider: Qi Vidal RN)1144 (Given - Provider: Kenzie Salazar, DARCI) pantoprazole DR (PROTONIX) extended release tablet 40 mg 40 mg, oral, Daily, First dose on Wed07/05/20 at 1830, Do not crush, chew, cut, dissolve, open or otherwise manipulate tablet/capsule., Indications: Stress Ulcer Prophylaxis 0900 (Given - Provider: Genie Elliott RN) 0822 (Given - Provider: Breanna Rodriguez, DARCI) 0900 (Given - Provider: Kenzie Salazar, DARCI) ramelteon (ROZEREM) tablet 8 mg 8 mg, oral, Nightly, First dose on Wed07/10/20 at 2100, Indications: Sleep-Onset Insomnia 2044 (Given - Provider: Jesse Waterman RN) 2021 (Given - Provider: Santy Brandt, DARCI) sodium chloride 0.9% bolus 500 mL (COMPLETED) 500 mL, intravenous, Once, On Wed07/10/20 at 0800, For 1 dose 0910 (New Bag - Provider: Genie Elliott RN) sodium chloride 0.9% flush 0.5-20 mL 0.5-20 mL, intra-catheter, Every 8 hours scheduled, First dose on Wed07/05/20 at 1645, Flush volume based on line type and size. 0620 (Given - Provider: Jesse Waterman RN)1300 (Given - Provider: Genie Elliott, RN)204 (Given - Provider: Jesse Waterman RN) 0623 (Given - Provider: Jesse Waterman RN)1210 (Given - Provider: Breanna Rodriguez, DARCI)2030 (Given - Provider: Santy Brandt, RN) 0506 (Given - Provider: Qi Vidal, DARCI) sodium chloride 0.9% flush 5-10 mL 5-10 mL, intra-catheter, Every 8 hours scheduled, First dose on Wed07/07/20 at 1400, Flush volume based on line type, size, and protocol. 0620 (Given - Provider: Jesse Waterman RN)1300 (Given - Provider: Genie Elliott, DARCI)2045 (Given - Provider: Jesse Waterman RN) 0623 (Given - Provider: Jesse Waterman RN)121 (Given - Provider: Breanna Rodriguez RN)230 (Given - Provider: Santy Brandt RN) 0407 (Not Given - Provider: Qi Vidal RN - Reason: Other - Comment: repeat order) spironolactone (ALDACTONE) tablet 25 mg 25 mg, oral, Daily, First dose on Wed07/05/20 at 1830, On hold since Wed07/12/2020 at 0919 until manually unheld 0900 (Dose Auto Held - Provider: Vianney Caballero MD) 0648 (MAR Unhold - Provider: Obed Martinez MD)0821 (Given - Provider: Breanna Rodriguez, DARCI) 0900 (Given - Provider: Kenzie Salazar, DARCI)0919 (Held by Provider - Provider: Arianna Huynh MD - Reason: Pending Results)1910 (MAR Unhold - Provider: Automatic Discharge Provider) triamcinolone (KENALOG) 0.1 % cream topical, 2 times daily, First dose on Wed07/11/20 at 2100, Apply to affected area: rash 2019 (Not Given - Provider: Santy Brandt RN - Reason: Patient/family refused) 1141 (Given - Provider: Kenzie Salazar, DARCI) vancomycin 1,750 mg/517.5 mL sodium chloride 0.9% (premix) 1,750 mg (CANCELED) 1,750 mg, intravenous, Administer over 120 Minutes, Every 24 hours, First dose (after last modification) on Wed07/09/20 at 1800, Indications: Bone/Joint Infection, Skin/Soft Tissue Infection 1805 (New Bag - Provider: Genie Elliott RN) 1846 (Not Given - Provider: Nancie Isabel RN - Reason: Order Discontinued) PRN Medication Order 07/10/2020 07/11/2020 07/12/2020 albuterol HFA (PROVENTIL HFA,VENTOLIN HFA,PROAIR HFA) 90 mcg/actuation inhaler 2 puff 2 puff, inhalation, Every 4 hours PRN (leather toggler), shortness of breath, Starting on Wed07/05/20 at 1805, Indications: Acute Asthma Attack LORazepam (ATIVAN) tablet 0.5 mg (CANCELED) 0.5 mg, oral, Every 8 hours PRN, anxiety, Starting on Wed07/10/20 at 1247 1259 (Given - Provider: Genie Elliott RN)1856 (Given - Provider: Genie Elliott RN) 0235 (Given - Provider: Jesse Waterman RN)1020 (Given - Provider: Breanna Rodriguez RN) LORazepam (ATIVAN) tablet 0.5 mg 0.5 mg, oral, Every 6 hours PRN, anxiety, Starting on Wed07/11/20 at 1145 1721 (Given - Provider: Breanna Rodriguez, DARCI)2354 (Given - Provider: Qi Vidal RN) 0907 (Given - Provider: Kenzie Salazar, DARCI) morphine injection 4 mg 4 mg, intravenous, Administer over 4 Minutes, Every 4 hours PRN, 2nd line for pain, Starting on Wed07/09/20 at 0641 0206 (Given - Provider: Jesse Waterman, DARCI)0618 (Given - Provider: Jesse Waterman, DARCI)1040 (Given - Provider: Genie Elliott RN)1553 (Given - Provider: Genie Elliott RN)2045 (Given - Provider: Jesse Waterman RN) 0235 (Given - Provider: Jesse Waterman RN)0622 (Given - Provider: Jesse Waterman RN)1020 (Given - Provider: Breanna Rodriguez RN)172 (Given - Provider: Breanna Rodriguez RN)2309 (Given - Provider: Santy Brandt RN) 0609 (Given - Provider: Qi Vidal RN)1150 (Given - Provider: Kenzie Salazar, DARCI) ondansetron ODT (ZOFRAN-ODT) disintegrating tablet 4 mg (CANCELED) 4 mg, oral, Every 4 hours PRN, nausea, vomiting, Starting on Wed07/05/20 at 2333 1040 (Given - Provider: Genie Elliott RN) ondansetron ODT (ZOFRAN-ODT) disintegrating tablet 8 mg 8 mg, oral, Every 8 hours PRN, nausea, vomiting, Starting on Wed07/11/20 at 1145 oxyCODONE (ROXICODONE) tablet 10 mg 10 mg, oral, Every 4 hours PRN, 1st line for pain, Starting on Wed07/09/20 at 1049, Indications: Pain 0206 (Given - Provider: Jesse Waterman RN)0618 (Given - Provider: Jesse Waterman RN)1040 (Given - Provider: Genie Elliott RN)1553 (Given - Provider: Genie Elliott RN)2045 (Given - Provider: Jesse Waterman RN) 0235 (Given - Provider: Jesse Waterman RN)0622 (Given - Provider: Jesse Waterman RN)1020 (Given - Provider: Breanna Rodriguez RN)1721 (Given - Provider: Breanna Rodriguez RN)2132 (Given - Provider: Santy Brandt RN) 0521 (Given - Provider: Kaylah Jones RN)0907 (Given - Provider: Kenzie Salazar RN) sodium chloride 0.9% flush 0.5-20 mL 0.5-20 mL, intra-catheter, As needed, line care, Starting on Wed07/05/20 at 1609, Flush volume based on line type and size. Flush before and after each use. sodium chloride 0.9% flush 5-10 mL 5-10 mL, intra-catheter, As needed, line care, with each use, Starting on Wed07/07/20 at 1038, Flush volume based on line type, size, and protocol. documented in this encounter Orders Medications Ordered That Thomas ht Not Have Been Administered Count Last Ordered Date First Ordered Date amoxicillin-clavulanate (AUG MENTIN) 875-125 mg per tablet 875 mg of amoxicillin 1 07/12/2020 diphenhydrAMINE (BENADRYL) tab/cap 25 mg 2 07/12/2020 07/11/2020 furosemide (LASIX) tablet 40 mg 2 0 07/05/2020 HYDROmorphone (DILAUDID) injection 0.5 mg 5 07/11/2020 07/06/2020 LORazepam (ATIVAN) tablet 0.5 mg 5 07/11/20 20 07/05/2020 ondansetron ODT (ZOFRAN-ODT) disintegrating tablet 8 mg 1 07/11/2020 ramelteon (ROZEREM) tablet 8 mg 2 0 07/10/2020 triamcinolone (KENALOG) 0.1 % cream 1 07/11 bisacodyl EC (DULCOLAX EC) tablet 10 mg 1 1 09/10/2019 docusate sodium (COLACE) capsule 200 mg 1 1 09/10/2019 sodium chloride 0.9% bolus 500 mL 1 020 HYDROmorphone (DILAUDID) injection 1 mg 1 1 09/09/2019 morphine injection 4 mg 1 07/09/2020 oxyCODONE (ROXICODONE) tablet 10 mg 1 07/09 oxyCODONE (ROXICODONE) tablet 5 mg 5 201907/06/2020 vancomycin 1,750 mg/517.5 mL sodium chloride 0.9% (premix) 1,750 mg 1 07/09/2020 acetaminophen (TYLENOL) tablet 1,000 mg 2 1 09/08/2019 07/06/2020 haloperidol (HALDOL) injection 0.5 mg 1 HYDROmorphone (DILAUDID) injection 0.2 mg 1 07/08/2020 naloxone (NARCAN) 0.4 mg/mL injection 0.04-0.4 mg 1 07/08/2020 ondansetron (ZOFRAN) injection 4 mg 2 07/0807/06/2020 sodium chloride 0.9 % irrigation 1 07/08/20 20 sterile water irrigation 1 07/08/2020 lidocaine PF (XYLOCAINE) 10 mg/mL (1 %) preservative free injection 10-20 mg 1 07/07/2020 sodium chloride 0.9% flush 5-10 mL 2 2019 baclofen (LIORESAL) tablet 2.5 mg 2 020 07/05/2020 cefepime (MAXIPIME) 1,000 mg /10 mL in sterile water (premix) 1,000 mg 1 07/06/2020 diphenhydrAMINE (BENADRYL) i njection 12.5 mg 1 07/06/2020 enoxaparin (LOVENOX) syringe 40 mg 2 201907/05/2020 HYDROmorphone (DILAUDID) injection 0.4 mg 1 07/06/2020 Lactated Ringer's (LR) infusion 2 0 prochlorperazine (COMPAZINE) injection 10 mg 1 07/06/2020 sodium chloride 0.9% flush 0.5-20 mL 4 06/2507/05/2020 vancomycin 1,250 mg/262.5 mL in sodium chloride 0.9% (premix) 1,250 mg 1 07/06/2020 albuterol HFA (PROVENTIL HFA ,VENTOLIN HFA,PROAIR HFA) 90 mcg/actuation inhaler 2 puff 2 07/05/2020 amLODIPine (NORVASC) tablet 10 mg 1 020 atorvastatin (LIPITOR) tablet 10 mg 1 07/05 busPIRone (BUSPAR) tablet 5 mg 1 07/05/2020 docusate sodium (COLACE) capsule 100 mg 1 1 09/05/2019 fluticasone propionate (FLON ASE) 50 mcg/actuation nasal spray 2 spray 1 07/05/2020 gabapentin (NEURONTIN) capsule 400 mg 1 05/2020 losartan (COZAAR) tablet 50 mg 1 07/05/2020 metoprolol tartrate (LOPRESS OR) immediate release tablet 25 mg 1 07/05/2020 ondansetron ODT (ZOFRAN-ODT) disintegrating tablet 4 mg 1 07/05/2020 oxyCODONE-acetaminophen (PER COCET) 5-325 mg per tablet 1 tablet 1 07/05/[address] (PROTONIX) e xtended release tablet 40 mg 1 07/05/2020 spironolactone (ALDACTONE) tablet 25 mg 1 1 09/05/2019 Lab Orders Without Results Count Last Ordered D ate First Ordered Date MAGNESIUM 1 07/11/2020 HEMOGLOBIN A1C 1 07/05/2020 Consult Count Last Ordered Date First Orde red Date CONSULT TO PM&R PHYSICIAN 1 07/10/2020 IP CONSULT TO VASCULAR ACCESS TEAM 1 2019 CONSULT TO BONE AND JOINT IN FECTIOUS DISEASE 1 07/06/2020 CONSULT TO ORTHO-TRAUMA 1 07/05/2020 Transfer Count Last Ordered Date First Orde red Date TRANSFER PATIENT 2 07/11/2020 CORE MEASURES Count Last Ordered Date First Ord ered Date REASON FOR NO VTE PROPHYLAXIS AT ADMISSION 1 07/08/2020 Case Request Count Last Ordered Date First Orde red Date CASE REQUEST OPERATING ROOM 2 07/08/2020 07/05/2020 documented in this encounter Additional Health Concerns Infection Onset Date Last Indicated Resolved Time COVID19 Comment:Patient 20 days out and asymptomatic. 07/11/2020 Carly Rouse 06/21/2020 06/21/2020 07/11/2020 4:[address] COVID: Recovered 07/11/2020 07/11/2020 11/08/2020 3:05 AM CDT documented as of this encounter Care Teams Supervising Architect Relationship Specialty Start Date End Date Bernardo Edwards MD [facility] [place] [address] PCP - General 07/05/20 07/06/20 Jose Manuel rGuber MD Fellow Orthopedic Surgery 07/06/19 documented as of this encounter
--- OUTSIDE RECORDS SUMMARY | 2024-08-13 05:00 | XMS_ITS | Encounter Summary ---
Author Organization [facility] Healthcare Address [address] [place] [address] Care Team Providers Care Licensed Massage Practitioner Name Role Phone Jose Manuel Gruber MD Unavailable [phone] Bernardo Edwards MD Primary Care Provider [phone] Encounter Details Date Type Department Care Team (Late st Contact Info) Description 07/08/2020 11:05 AM COLLECTOR - 07/08/2020 2:15 PM COLLECTOR Surgery [facility] Operating Room [address] [place] [address] Jacobo Shoemaker MD [address] [facility] [place] [address] AMPUTATION ABOVE KNEE Surgery Details Date/Time Status Location OR Service Patient Class Case Class Case Type Trauma Case? 07/08/2020 11:05 AM Posted [facility] OR POD 2 205 Orthopaedics Inpatient Urgent - 12 hours Panel 1 Procedure LRB Anes Op Region Wound Class Comments AMPUTATION ABOVE KNEE Left General Thigh Class II I - Contaminated Surgeon Surgeon Role Service Panel Jacobo Shoemaker MD Primary Orthopa edics 1 Ernesto Devine MD PhD Resident - Assisting Ortho paedics 1 Huang Martin MD Resident - Assisting Orthopa edics 1 documented in this encounter Social History [...] Sign Reading Time Taken Comments Blood Pressure 132/63 07/08/2020 7:00 AM COLLECTOR Pulse 78 07/08/2020 7:00 AM COLLECTOR Temperature 37.1 ??C (98.8 ??F) 07/08/2020 7:00 AM CS T Respiratory Rate 18 07/08/2020 7:00 AM COLLECTOR Oxygen Saturation 100% 07/08/2020 7:00 AM COLLECTOR Inhaled Oxygen Concentration - - Weight 87.5 kg (192 lb 12.8 oz) 07/05/2020 3:33 PM COLLECTOR Height 157.5 cm (5' 2 ) 07/05/2020 3:33 PM COLLECTOR Body Mass Index 35.26 07/05/2020 3:33 PM COLLECTOR documented in this encounter Discharge Summaries * Arianna Huynh MD - 07/12/2020 9:27 AM CST Inpatient Discharge Summary BRIEF OVERVIEW Admitting Provider: Vianney Caballero MD Discharge Provider: Christopher Jay MD Primary Care Physician at Discharge: Bernardo Edwards MD [phone] Admission Date: 07/05/2020 Discharge Date: 07/12/2020 Admission Location: [facility] Problems/Diagnoses: Principal Problem: Left lower extremity [...] vancomycin x 1 and was transferred to [facility]. Also per report, pt was hyponatremic Na 123 (baseline 126-low 130s) but lab results not included in [facility] paper chart. ?? Of note, pt recently diagnosed with COVID at [facility] (per report 2 days prior to admission). Pt states she was having a cough and that at the SNF they regularly test patients. Denies fevers, chills, shortness of breath, abd pain, diarrhea, nausea, loss of smell or taste. She satting well on baseline 4LNC. ?? I reviewed pt's Epic chart and paper chart from [facility]. Hospital Course: Left leg infection- subcutaneous infection [...] report, pt was tested for COVID at [facility] 2 days. Per pt, residents get [...] MIXED AEROBIC AND ANAEROBIC MICROORGANISMS Resulting Agency [facility] Susceptibility Proteus mirabilis INTERPRETATION Ampicillin Susceptible [...] Christopher Jay MD at 07/12/2020 3:20 PM COLLECTOR ECTOR ECTOR Associated attestation - Christopher Jay MD - 07/12/2020 3:20 PM COLLECTOR I have seen and examined the patient [...] Disposition Code Departure Means Destination Discharge to [facility] documented in this encounter Progress Notes * Keren Field MSW - 07/12/2020 1:03 PM CST 07/12/20 1259 Discharge Summary Chart reviewed For Medical Necessity Does patient have a planned readmission to hospital planned? No Discharge Disposition SNF, Commercial Insurance, Short term Skilled Specify Facility [facility] Facility Contact Number [phone] Bernardo Edwards Discharge Records Transfer Form Completed;Chart Copied Discharge Additional Assistance Does the patient need discharge transport arranged? Yes Has discharge transport been arranged? Yes Details of Transportation [facility] (Trip#: [phone]) What day is the transport expected? 07/12/20 [...] Patient agreed to d/c plan. Elton from [facility]/ [facility] accepted patient for placement today (Report: [phone], ). Patient is medically stable, chart copied,insurance approved ([employer]: [id number])René willing to take patient, and transfer paperwork completed. [facility] arranged to transport patient to [facility] on 07/12/2020 at 2:00pm (Trip#: [phone]). Patient/family informed that while medical team will [...] bill. Patient/family voiced understanding. Keren Field LMSW [phone] ECTOR * Arianna Huynh MD - 07/12/2020 1:01 [...] discharge - NWB left lower extremity. - Vulcanizing Press Operator placed stump chief of hospital medicine / ampushield. Awaiting delivery of limb protector. 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 1800 dose of vanc held per MD Martinez. ECTOR * Ernesto Devine MD PhD - 07/11/2020 [...] post op. Dressings have been changed and Vulcanizing Press Operator protocol initiated. Objective Vitals: 24hr Min/Max: Temp [...] distress Breathing regular and unlabored LLE: Stump chief of hospital medicine in place Sensory intact to stump Laboratory [...] the appropriate orthopaedic surgery team, please use [email or web address] to page resident directly. ? If you have questions overnight or can't reach the appropriate resident, please call the Orthopaedic Surgery Consult Pager [phone] to have your questions answered or be directed to the correctOrthopaedic Surgery resident. ECTOR * Arianna Huynh MD - 07/11/2020 5:18 [...] consulted - NWB left lower extremity. - Vulcanizing Press Operator placed stump chief of hospital medicine / ampushield. Awaiting delivery of limb protector. 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 I agree with the findings and plan of care as documented in the resident's/fellow's note.. * Rosy Michel - 07/11/2020 3:20 PM CST Spiritual Care Note Chaplain Rosy Michel [phone] 07/11/20 1206 Time Spent Start Time 1206 Stop Time 1220 Time Calculation (min) 14 min Patient Spiritual Assessment Spirituality Assessed Focus of Care Clinical Encounter Type Visited With Patient Response Type Routine visit Routine Visit Introduction Reason for visit Support (Process recent amputation) Referral From Nurse Referral To Can Filling Machine Operator Outcomes and Interventions Outcomes Demonstrating care and respect;Aligning care with Patient's values ECTOR * Terra Winter PA - 07/11/2020 12:45 PM CST Infectious Disease Bone & Joint Team Progress Note Bone and Joint Pager [phone] (attending pager)JOSE CRUZ desk: [phone]; pager: [phone] Subjective Chief complaint of osteomyelitis, TKA PJI [...] Drug Monitoring: Lab Results Component Value Date [facility] 7.9 ([facility]) 07/08/2020 Assessment/Plan COVID-19 Assessment & Plan - recommend getting records from [facility] to establish exact date of first [...] contact the ID B&J Team PA at [phone] (desk) or [phone] (work cell) M-F, 7-3; or the Attending at [phone] (pager) with any questions or concerns. After hours, the ID fellow director geothermal operations can be reached at [phone]. The patient was reviewed and examined with Dr. Veronica today, on 07/11/2020. Cosigned by Og Cintron MD at 07/11/2020 1:04 PM COLLECTOR ECTOR ECTOR ECTOR Associated attestation - Og Cintron MD - 07/11/2020 1:04 PM COLLECTOR I have seen and examined the patient [...] was not from the margin, hence, not floor representative. If bone culture remain NG tomorrow, can discontinue cefe/vanc and switch to augmentin PO * Obed Martinez MD - 07/11/2020 6:55 AM CST Daily Progress Note Division of Hospital Medicine Name: Celestina Ansari Age: 69 y.o. female : 1950 Today: July 11, 2020 Admit: 07/05/2020 Bed: [id number] Subjective Chief Complaint: Leg infection, COVID-19 Interval History: Patient tested POSITIVE for COVID-19 on 06/21/20 at her fdc. Afebrile. Breathing at baseline. On 3L of [...] Results: I have independently reviewed records in [facility]. Assessment/Plan * Left lower extremity infection Assessment [...] left lower extremity. - PM&R consulted. - Vulcanizing Press Operator placed stump chief of hospital medicine / ampushield. Awaiting delivery of limb protector. - Patient not interested in prosthesis at this time. - PT/OT consults. - Plan for patient to return to her prior SNF when medically stable with ongoing PT/OT. - ID and Ortho following. COVID-19 Assessment & Plan - Patient tested positive for COVID-19 on 06/21/20 at her fdc ([facility] in [place], [place]). - She reports her only symptom [...] Adult Diet Regular DVT Prophylaxis: Lovenox Access: [facility] Obed Martinez MD 07/11/2020 6:59 AM For patient related questions from 7 AM until 7 PM, please contact the primary Hospitalist team. From 7 PM until 7 AM, please call the Hospitalist cross cover phone. ECTOR * Sierra Benavidez, PT - 07/10/2020 5:01 [...] treatment team and contact the PT or ELECTRICAL SERVICE TECHNICIAN currently assigned to this patient. If a physical therapy clinician is not assigned to this patient, please call [phone]. 07/10/20 1701 PT Last Visit Session Type [...] this the discharge summary Recommendation/Plan PT Recommendation/Plan Jail Facility PT Frequency 3-5x/wk PT - Next [...] Start Date End Date PT LTG - [facility] 1 07/09/20 -- Goal Details: Pt will perform all functional mobility min A with LRD Goal Start Date End Date PT STG - [facility] 1 07/09/20 -- Goal Details: Pt will verbalize and demonstrate understanding of AKA HEP to prevent contractures and weakness of L stump. ECTOR * Obed Martinez MD - 07/10/2020 7:12 AM CST Daily Progress Note Division of Hospital Medicine Name: Celestina Ansari Age: 69 y.o. female : 1950 Today: July 10, 2020 Admit: 07/05/2020 Bed: [id number] Subjective Chief Complaint: Leg infection, COVID-19 Interval History: Patient tested POSITIVE for COVID-19 on 06/21/20 at her fdc. Afebrile. Breathing at baseline. On 3L of [...] Results: I have independently reviewed records in [facility]. Assessment/Plan * Left lower extremity infection Assessment [...] left lower extremity. - PM&R consult. - Vulcanizing Press Operator to place stump chief of hospital medicine / ampushield on POD2-3. - ID and Ortho following. COVID-19 Assessment & Plan - Patient tested positive for COVID-19 on 06/21/20 at her fdc ([facility] in [place], [place]). - She reports her only symptom [...] Adult Diet Regular DVT Prophylaxis: Lovenox Access: [facility] Obed Martinez MD 07/10/2020 10:58 AM For patient related questions from 7 AM until 7 PM, please contact the primary Hospitalist team. From 7 PM until 7 AM, please call the Hospitalist cross cover phone. ECTOR * Ernesto Devine MD PhD - 07/10/2020 [...] well post op. Pain controlled this AM. Vulcanizing Press Operator planning to see today v tomorrow Objective [...] aware of pt and will place stump chief of hospital medicine/ampusheild on POD2-3. ??? Ortho to follow Ernesto Devine MD PhD Orthopaedic Surgery PGY-2 ? During normal business hours - If you know the resident's name on the appropriate orthopaedic surgery team, please use [email or web address] to page resident directly. ? If you have questions overnight or can't reach the appropriate resident, please call the Orthopaedic Surgery Consult Pager [phone] to have your questions answered or be directed to the correctOrthopaedic Surgery resident. ECTOR * Terra Winter PA - 07/09/2020 4:19 PM CST Infectious Disease Bone & Joint Team Progress Note Bone and Joint Pager [phone] (attending pager)JOSE CRUZ desk: [phone]; pager: [phone] Subjective Chief complaint of osteomyelitis/PJI Interval History: [...] & Plan - recommend getting records from [facility] to establish exact date of first [...] contact the ID B&J Team PA at [phone] (desk) or [phone] (work cell) M-F, 7-3; or the Attending at [phone] (pager) with any questions or concerns. After hours, the ID fellow director geothermal operations can be reached at [phone]. D/w primary team over the phone today The patient was reviewed and examined with Dr. Veronica today, on 07/09/2020. Cosigned by Og Cintron MD at 07/11/2020 1:18 PM COLLECTOR ECTOR ECTOR ECTOR ECTOR ECTOR Associated attestation - Og Cintron MD - 07/11/2020 1:18 PM COLLECTOR I have seen and examined the patient [...] aware of pt and will place stump chief of hospital medicine/ampusheild on POD2-3. ??? Ortho to follow Ernesto Devine MD PhD Orthopaedic Surgery PGY-2 ? During normal business hours - If you know the resident's name on the appropriate orthopaedic surgery team, please use [email or web address] to page resident directly. ? If you have questions overnight or can't reach the appropriate resident, please call the Orthopaedic Surgery Consult Pager [phone] to have your questions answered or be directed to the correctOrthopaedic Surgery resident. ECTOR * Gilberto Armstrong, PT - 07/09/2020 10:16 [...] PT Recommendation and Plan Recommendation/Plan PT Recommendation/Plan: Jail Facility PT Recommendation/Plan Comments: back to facility [...] stated Prior Function Prior Function Level of [place]: Independent with ADLs, Independent functional transfers, Independent with wheelchair Lives With: Other (Comment)(SNF) Receives Help From: Other (Comment)(SNF staff) Driving: No Vocational/Occupation: Retired Fall within the last 6 months: No Home Living Home Living Type of Home: Jail Facility Home Layout: One level Home Access: [...] prevent contractures and weakness of L stump. ECTOR * Marion Walsh OT - 07/09/2020 8:55 AM CST Occupational Therapy For questions, please review the treatment team and contact the occupational therapist currently assigned to this patient. If an occupational therapist is not assigned to this patient, please call [phone]. 07/09/20 9348 General Chart Reviewed Yes Session Type Evaluation [...] Bearing NWB Home Living Type of Home Jail Facility Home Layout One level Home Access Level entry Bathroom Toilet Standard Home Mobility Equipment Wheeled walker;Wheelchair-manual Prior Function Level of [place] Independent with ADLs;Independent functional transfers;Independent with ambulation [...] this the discharge summary Recommendation/Plan OT Recommendation Jail Facility OT Frequency 2-3x/wk Treatment/Interventions ADL/IADL retraining;Balance Training;Bed mobility;Endurance training;Functional activity;Functional mobility training;Functional transfer training;Strengthening;Therapeutic act ivity;Therapeutic exercise;Transfer training OT - Next Appointment 07/11/20 OT - OK to Discharge No OT Evaluation Complete Yes ECTOR * Obed Martinez MD - 07/09/2020 7:19 AM CST Daily Progress Note Division of Hospital Medicine Name: Celestina Ansari Age: 69 y.o. female : 1950 Today: July 09, 2020 Admit: 07/05/2020 Bed: [id number] Subjective Chief Complaint: Leg infection, COVID-19 Interval History: Patient tested POSITIVE for COVID-19 on 06/21/20 at her fdc. Afebrile. Breathing at baseline. On 4L of O2 this morning (her baseline). Status post OR with orthopedics yesterday for Andi AALRCON. Pain is well-controlled with morning. Objective Medications: [...] Results: I have independently reviewed records in [facility]. Assessment/Plan * Left lower extremity infection Assessment [...] positive for COVID-19 on 06/21/20 at her fdc ([facility] in [place], [place]). - She reports her only symptom [...] 132. Restart when able. Chronic respiratory failure ([facility]) Assessment & Plan - Per pt 2/2 [...] please call the Hospitalist cross cover phone. ECTOR * Ave Samaniego RN - 07/08/2020 5:19 PM CST CM Initial Assessment Interview Note Information Obtained From: Adult child Name: Martina Ansari, daughter, (07/08/201712) Admission Source: [facility] ([facility]) [place], [place] Impression: Covid 19 infection and patient [...] phone, availablity): Martina Ansari, daughter, lives in [place] and [place] Friend/neighbor [phone] Home Care Services: No Durable Medical Equipment: CPAP/Bi-PAP, Walker (wheeled), Nebulizer, Home Modification Assessment (railes in bathroom) Living Arrangements: Alone(Currently at [facility] for PT) Type of Residence: Private residence, Apartment Steps in home? : No steps inside or outside (07/08/201712) Potential discharge needs include: Dialysis: Dialysis: No (07/08/201712) Behavioral Health Services: Behavioral Health Services: No (07/08/201712) Patient expects to be Discharged to: Jail Facility, (07/08/201717) Additional Information: Patient currently temporaraly residing in a SNF for therapy related to the above history. Patient lives in subsidized prison apartments which is being held for patient.Patient's daughter, Martina, is in agreement for patient to return to [place], if patient is in agreement with returning. [...] Collaboration with patient, MD, direct care nurse, School Treasurer, Nurse Coordinator and other members of the health care team to assure needed interventions completed. 2. Return patient to optimal level of self-care post discharge. 3. Electrical Prospecting Observer will follow for Discharge Planning - interventions [...] with the aftercare plan. Ave Samaniego RN ECTOR * Obed Martinez MD - 07/08/2020 7:08 [...] EKG/Min 76 BPM Atrial Rate 76 BPM DC-Interval (MSEC) 174 ms QRS-Interval (MSEC) 84 ms QT-Interval (MSEC) 414 ms QTc 465 ms P [place] 70 degrees R [place] -21 degrees T [place] 22 degrees Diagnosis Normal sinus rhythm Voltage [...] Results: I have independently reviewed records in [facility]. Assessment/Plan * Left lower extremity infection Assessment [...] 132. Restart when able. Chronic respiratory failure ([facility]) Assessment & Plan - Per pt 2/ [...] please call the Hospitalist cross cover phone. ECTOR * Vianney Dia MD - 07/07/2020 6:28 PM CST Daily Progress Note Division of Hospital Medicine COVID Unit Name: Celestina Ansari Today: July 07, 2020 : 1950 Age: 69 y.o. female Admit: 07/05/2020 Bed: [id number] Subjective Chief complaint: L leg infection c/f [...] 132. Restart when able. Chronic respiratory failure ([facility]) Assessment & Plan - Per pt 2/2 [...] SCD. Holding enoxaparin for procedure. Please call [phone] with any questions or concerns from 7am-7pm. Please call the [employer] phone after hours. Vianney Caballero MD 07/07/2020 6:27 PM ECTOR * Gumaro Graham MD - 07/07/2020 12:11 [...] interested in talking with a amputee from [facility] at this time. Objective Vitals: 24hr Min/Max: [...] Lovenox Gumaro Graham MD Orthopaedic Surgery PGY-3 [facility] in [place] Please call or text with questions or concerns Phone number can be found on [email or web address] ECTOR * Vianney Dia MD - 07/06/2020 3:11 PM CST Daily Progress Note Division of Hospital Medicine COVID Unit Name: Celestina Ansari Today: July 06, 2020 : 1950 Age: 69 y.o. female Admit: 07/05/2020 Bed: [id number] Subjective Chief complaint: L leg infection c/f [...] - Start antimicrobials post-OR Chronic respiratory failure ([facility]) Assessment & Plan - Per pt 2/2 [...] SCD. Holding enoxaparin for procedure. Please call [phone] with any questions or concerns from 7am-7pm. Please call the [employer] phone after hours. Vianney Caballero MD 07/06/2020 3:10 PM ECTOR * Gumaro Graham MD - 07/06/2020 11:08 AM CST [...] OR Gumaro Graham MD Orthopaedic Surgery PGY-3 [facility] in [place] Please call or text with questions or concerns Phone number can be found on [email or web address] ECTOR documented in this encounter H&P Notes * Jacobo Shoemaker MD - 07/08/2020 9:38 AM CST I have reviewed the H&P, examined the patient, and endorse the findings as written. 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 provider found Consulting Provider: Resident - Maureen/Attending - Sondra Patient (home) Insurance: Payor: [employer] MEDICARE / Plan: [employer] [facility] ADVANTRA / Product Type: *No Product type* [...] MD ondansetron (ZOFRAN) 4 mg tablet 12/30/19 Luclile Junior MD oxyCODONE (ROXICODONE) 10 mg tablet [...] ??? Iodine Unknown ??? Latex Unknown ??? [place]-3 Fatty Acids Unknown ??? Other Unknown seafood [...] only and have not been reviewed by [facility] Radiology. There will be no report generated by a [facility] Radiologist. Clinical Images: None Procedure: No procedure was performed or indicated at this time Assessment: Celestina Ansari is a 69 y.o. female: Plan: - On [facility] Medicine team - Plan: Operative [...] the appropriate orthopaedic surgery team, please use [email or web address] to page resident directly. ?? If you have questions overnight or can't reach the appropriate resident, please call the Orthopaedic Surgery Consult Pager [phone] to have your questions answered or be directed to the correct Orthopaedic Surgery resident. This patient was evaluated within 30 minutes of consultation. Leroy Reddy MD Orthopaedic Surgery PGY-2 [facility] Cosigned by Ethel Amaro MD at 07/06/2020 4:45 PM COLLECTOR ECTOR ECTOR ECTOR * Ethel Amaro MD - 07/06/2020 4:48 PM CST I have reviewed the H&P, examined the patient, and endorse the findings as written. 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 provider found Consulting Provider: Resident - Maureen/Attending - Sondra Patient (home) Insurance: Payor: [employer] MEDICARE / [facility]: [facility] / Product Type: *No Product type* / [...] Asthma ??? COPD (chronic obstructive pulmonary disease) ([facility]) ??? Heart murmur ??? Hyperlipidemia ??? Hypertension [...] ??? Iodine Unknown ??? Latex Unknown ??? [place]-3 Fatty Acids Unknown ??? Other Unknown seafood [...] only and have not been reviewed by [facility] Radiology. There will be no report generated by a [facility] Radiologist. Clinical Images: None Procedure: No procedure was performed or indicated at this time Assessment: Celestina Ansari is a 69 y.o. female: Plan: - On [facility] Medicine team - Plan: Operative [...] the appropriate orthopaedic surgery team, please use [email or web address] to page resident directly. ?? If you have questions overnight or can't reach the appropriate resident, please call the Orthopaedic Surgery Consult Pager [phone] to have your questions answered or be directed to the correct Orthopaedic Surgery resident. This patient was evaluated within 30 minutes of consultation. Leroy Reddy MD Orthopaedic Surgery PGY-2 [facility] in [facility] Cosigned by Ethel Amaro MD at 07/06/2020 4:45 PM COLLECTOR ECTOR ECTOR ECTOR * Vianney Dia MD - 07/05/2020 6:03 [...] vancomycin x 1 and was transferred to [facility]. Also per report, pt was hyponatremic Na 123 (baseline 126-low 130s) but lab results not included in [facility] paper chart. Of note, pt recently diagnosed [...] pt's Epic chart and paper chart from [facility]. Past Medical History: Diagnosis Date ??? Asthma [...] ??? Iodine Unknown ??? Latex Unknown ??? [place]-3 Fatty Acids Unknown ??? Other Unknown seafood [...] Plan - As elsewhere Chronic respiratory failure ([facility]) Assessment & Plan - Per pt 2/2 [...] GM Sodium DVT Prophylaxis: lovenox Please call [phone] with any questions or concerns from 7 am to 7pm. Call the cross cover phone after hours. Vianney Caballero MD 07/05/2020 6:02 PM ECTOR documented in this encounter Procedure Notes * [...] (c) = Cosigned By Initials Name AT [facility], DARCI Shook Amy Marie, RN JW Wright, Jacqualine Defaye, RN Plan: Follow up: Mary Ann Enamorado RN ECTOR documented in this encounter Consult Notes * Obed Poole Jr., MD - 07/10/2020 8:16 AM CSTAssociated Order(s): CONSULT TO PM&R PHYSICIAN Patient Name: CELESTINA ANSARI Medical Record Number (MRN): [id number] Date of (): 1950 Encounter Date: 07/05/2020 [...] left lower extremity. - PM&R consult. - Vulcanizing Press Operator to place stump chief of hospital medicine / ampushield on POD2-3. - ID and Ortho following. ?? COVID-19 - Patient tested positive for COVID-19 on 06/21/20 at her fdc ([facility] in [place], [place]). - She reports her only symptom [...] ??? Iodine Unknown ??? Latex Unknown ??? [place]-3 Fatty Acids Unknown ??? Other Unknown seafood [...] file Gets together: Not on file Attends quaker service: Not on file Active member of [...] well to strict commands Recommendation/Plan PT Recommendation/Plan: Jail Facility PT Recommendation/Plan Comments: back to facility [...] aware of patient and planning to place chief of hospital medicine/ampushield soon. Plan # Medical Plan: Per primary [...] have patient evaluated by PT, OT, and TALENT DEVELOPMENT COORDINATOR Thank you for this consult and for your consideration of the above recommendations. For questions or concerns, please call the PM&R Consul service at . Obed Poole MD Resident Physician, PGY-3 Physical Medicine & Rehabilitation Division of Neurorehabilitation, Department of Neurology [facility] in [place] Cosigned by Roxanne Spring MD at 07/10/2020 3:48 PM COLLECTOR ECTOR ECTOR Associated attestation - Roxanne Spring MD - 07/10/2020 3:48 PM COLLECTOR I have seen and examined the patient on 07/10/20. I agree with the findings and plan of care as discussed with and documented by Dr. Obed Poole, PM&R Consult Resident. Ms. Celestina Ansari is a 69 y.o. 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 Prior to this, she had [place] [facility] [place]. She reported that she had been [...] recently dressed and she was wearing a chief of hospital medicine. She is currently requiring significant assist with [...] proper wound care and protecting the limb. Vulcanizing Press Operator is to deliver limb protector in the next day or so. The patient indicated that she is not interested in receiving a prosthetic limb at this point. I instructed that she should remain in contact with her prosthetists through Vulcanizing Press Operator and if that changes in the future [...] Please contact the PM&R Consult service at [phone] if you have any questions or if the patient's clinical condition changes. Roxanne Spring MD Retail Equipment Associate, PM&R Division of Neurorehabilitation, Department of Neurology [facility] in [place] * Og Cintron MD - 07/06/2020 9:53 AM CSTAssociated Order(s): CONSULT TO BONE AND JOINT INFECTIOUS DISEASE Infectious Disease Initial Consult Note Infectious Disease Team: Bone and Joint Contact Information: Please see [facility] Treatment Team listing for up-to-date contact information. [...] prompted her to go to the OSH ([facility]) where one dose of vancomycin was given [...] mg oral Q4H PRN Angel Crystal DO 4mg at 07/06/20 0034 ??? oxyCODONE (ROXICODONE) tablet [...] ??? Iodine Unknown ??? Latex Unknown ??? [place]-3 Fatty Acids Unknown ??? Other Unknown seafood [...] HIV Ab Screen: No results found for: [id number] HIV Viral Load: No results found for: [id number] CD4 Count: No results found for: CD4ABS Radiology: Radiology results were reviewed. Last X-Ray Result: Results for orders placed during the hospital encounter of 07/05/20 XR Outside Reference Narrative EXAMINATION: Images For Reference Purposes Only Impression These images are for Reference purposes only and have not been reviewed by [facility] Radiology. There will be no report generated by a [facility] Radiologist. Last CT Result: Results for orders [...] contact the ID B&J Team PA at [phone] (desk) or [phone] (work cell) M-F, 7-3; or the Attending at [phone] (pager) with any questions or concerns. After hours, the ID fellow director geothermal operations can be reached at [phone]. COVID-19 Assessment & Plan - recommend getting records from SNF to establish exact date of first (+) COVID test. - pt likely has completed days of isolation. ECTOR Leroy Grubbs MD - 07/05/2020 9:08 PM CSTAssociated Order(s): CONSULT TO ORTHO-TRAUMA Orthopaedic Surgery Trauma Consult July 05, 2020 9:10 PM Reason for Consult: L T3 open periprosthetic tib/fib shaft fx periprosthetic infection Requesting Provider: No ref. provider found Consulting Provider: Resident - Maureen/Attending - Sondra Patient (home) Insurance: Payor: [employer] MEDICARE / Plan: [employer] [facility] ADVANTRA / Product Type: *No Product type* [...] Asthma ??? COPD (chronic obstructive pulmonary disease) ([facility]) ??? Heart murmur ??? Hyperlipidemia ??? Hypertension [...] Leroy Reddy MD Nyamyc powder 03/01/20 Lucille Junoir MD olmesartan (BENICAR) 40 mg tablet Take [...] ??? Iodine Unknown ??? Latex Unknown ??? [place]-3 Fatty Acids Unknown ??? Other Unknown seafood [...] only and have not been reviewed by [facility] Radiology. There will be no report generated by a [facility] Radiologist. Clinical Images: None Procedure: No procedure was performed or indicated at this time Assessment: Celestina Ansari is a 69 y.o. female: Plan: - On [facility] Medicine team - Plan: Operative [...] the appropriate orthopaedic surgery team, please use [email or web address] to page resident directly. ?? If you have questions overnight or can't reach the appropriate resident, please call the Orthopaedic Surgery Consult Pager [phone] to have your questions answered or be directed to the correct Orthopaedic Surgery resident. This patient was evaluated within 30 minutes of consultation. Leroy Reddy MD Orthopaedic Surgery PGY-2 [facility] in [facility] Cosigned by Ethel Amaro MD at 07/06/2020 4:45 PM COLLECTOR ECTOR ECTOR ECTOR Associated attestation - Ethel Amaro MD - 07/06/2020 4:45 PM COLLECTOR I personally saw and examined the patient [...] Nursing Note Discharge Disposition [facility] at [facility] Discharge Transportation [facility] (Trip#: [id number]) Set for 1400 pickup Belongings Returned as charted. LDA's Removed per protocol AVS Patient sent with AVS, healthcare facility AVS, and packet. AVS discussed and signed. No questions asked. Report Called by Deena BEJARANO Actual Discharge Time 1441 ECTOR ECTOR * Kenzie Salazar RN - 07/12/2020 12:41 PM CST 1241 Patient was discharged to SNF.Discharge instructions given by Matilde. Care handed over to the SNF, RN. Leg stump clean, dry and intact. Due pain meds given. V/S stable. ECTOR * Qi Vidal RN - 07/12/2020 12:15 AM CST Patient transferred to [facility]. I assumed care for this patient at 2345. I agree with all charting done by DARCI [place], except where noted. Patient resting comfortably in bed with no complaints. ECTOR ECTOR * Breanna Rodriguez RN - 07/11/2020 5:47 PM CST Patient transferred to [address] [place] [address] from [facility] in stable condition. Vital signs stable. Patient denies any chest pain, sob,or dizziness, on departure from floor[place] [id number]. ECTOR * Genie Elliott RN - 07/10/2020 10:13 [...] Management and Skin Breakdown Prevention/Treatment. Patient and/or floor representative Verbalizes understanding. Will continue to monitor. ECTOR * Genie Elliott RN - 07/09/2020 2:40 [...] Management and Skin Breakdown Prevention/Treatment. Patient and/or floor representative Verbalizes understanding. Will continue to monitor. ECTOR * Yarely Hopkins RN - 07/08/2020 6:18 [...] Patient verbalizes understanding. Will continue to monitor. ECTOR documented in this encounter Miscellaneous Notes * [...] nursing note for detailed summary of shift. ECTOR * Plan of Care - Terra Winter [...] prompted her to go to the OSH ([facility]) where one dose of vancomycin was given [...] Og Cintron MD at 07/12/2020 11:30 AM COLLECTOR ECTOR ECTOR ECTOR * Plan of Care - Keren Field MSW - 07/12/2020 10:35 AM CST Social Work noted patient transferred to [address] from [address]. Per chart review patient admitted from [facility] and plan is to return at time of discharge. Social Work to follow. Keren Field [facility] [phone] ECTOR * Plan of Care - Qi Vidal RN - 07/12/2020 3:19 AM CST Problem: Lack of Knowledge: Goal: Ability to state ways to decrease the risk of falls will improve 07/12/2020318 by Qi Vidal RN Outcome: Progressing 07/12/2020318 by Qi Vdial RN Outcome: Progressing Problem: Safety: Goal: Will [...] meds given. Patient refused all turns. VSS. ECTOR ECTOR * Significant Event - Obed Martinez MD - 07/11/2020 4:19 PM COLLECTOR Attending Note - Resolved COVID-19 Celestina Ansari is a patient who is known to have had test-confirmed COVID-19 disease starting on 06/21/20. A review of this case was performed by me (the primary inpatient attending) and based on the patient???s clinical picture and course this patient has met the appropriate symptom, time, or testing criterion established by [facility] to be considered to have resolved COVID-19 [...] mild COVID-19 course. She was admitted to [facility] for other reasons - left lower [...] respiratory symptoms (e.g., cough, shortness of breath). ECTOR * Plan of Care - Breanna Rodriguez [...] care. Will continue to monitor patient's progress. ECTOR * Plan of Care - Jesse Waterman [...] in daily care. Will continue to monitor. ECTOR * Plan of Care - Jesse Waterman [...] in daily care. Will continue to monitor. ECTOR * Plan of Care - Fernanda Mcarthur MSW - 07/09/2020 3:39 PM CST JAYNE attempted to speak to the pt to see if they wanted to [facility]) but no response. JAYNE spoke with pt's dtr Martina #[phone] to discuss the above, and she was agreeable to pt returning to their facility. She tried calling the pt on their cell phone for a 3-way call, but the pt still did not answer. Dtr and JAYNE left a voicemail for the pt. JAYNE sent referral. JAYNE to follow. DIEGO Coley # [phone] ECTOR * ECIN Note - Fernanda Mcarthur MSW [...] Weight Bearing NWB - Type of Home Jail Facility - Home Layout One level - Home Access Level entry - Bathroom Toilet Standard - Home Mobility Equipment Wheeled walker;Wheelchair-manual - Level of [place] Independent with ADLs;Independent functional transfers;Independent with ambulation [...] this the discharge summary - OT Recommendation Jail Facility - OT Frequency 2-3x/wk - Treatment/Interventions [...] 07/09/20 0829 07/08/20 1216 Chart Reviewed Yes -RI -- Session Type Evaluation -RI -- Safe Environment Arm Band Checked;Notified RN;Session Completed Bedside;Patient found in Supine -RI-- Subjective Other Reluctant to participate -RI -- Subjective Comment I hurt -RI -- PT Missed Visit Reason -- MD/RN Hold;Procedure/testing/appointment pt to OR for AKA -RI Family/Caregiver Present No -RI -- Physical Therapy-Patient Goal None specifically stated -RI -- Precautions Fall risk -RI -- Weight Bearing Restrictions Yes -RI -- LLE Weight Bearing NWB -RI -- Type of Home Jail Facility -RI -- Home Layout One level -RI -- Home Access Level entry -RI -- Home Mobility Equipment Wheeled walker;Wheelchair-manual -RI -- Additional Comments pt reports typically using w/c for all mobility and is able to perform transfers independently -RI -- Level of [place] Independent with ADLs;Independent functional transfers;Independent with wheelchair -RI -- Lives With Other (Comment) SNF -RI -- Receives Help From Other (Comment) SNF staff -RI -- Driving No -RI -- Vocational/Occupation Retired -RI -- Fall within the last 6 months No -RI -- Activity Tolerance Comments Yasmin = -RI -- Pain Assessment 0-10 -RI -- Pain Score 8 -RI -- Pain Type Surgical pain -RI -- Pain Location Leg -RI -- Pain Orientation Left;Distal -RI -- Pain Interventions RN Notified RN notes administering medication prior to session -RI -- Arousal/Alertness Alert;Appropriate responses to stimuli -RI -- Orientation Oriented X4 (person, place, time, situation) -RI -- Following Commands Follows all commands and directions without difficulty -RI -- Safety Judgment Good awareness of safety precautions -RI -- Compliance/Behavior Easy to engage -RI -- Light Touch WFL in BUE/BLE -RI -- Numbness/Tingling No -RI -- Sensation Comments Skin intact throughout except LLE wrapped in ZACHARY bandage. 1+ BLE edema -RI -- Balance Yes -RI -- Static Sitting-Balance Support Bilateral upper extremity supported;Feet supported -RI -- Static Sitting-Sitting Surface Bed -RI -- Static Sitting-Level of Assistance Close supervision;Moderate assistance -RI -- Static Sitting-Comment/# of Minutes pt requires fluctuating SBA-mod A at EOB to maintain upright posture and balance -RI -- Static Standing-Balance Support Bilateral upper extremity supported -RI -- Static Standing-Standing Surface Floor -RI -- Static Standing-Level of Assistance Maximum assistance x2 -RI -- Static Standing-Comment/# of Minutes assist for balance and safety with hip extension -RI -- Bed Mobility Yes -RI -- Bed Mobility From 1 Supine -RI -- Bed Mobility Type 1 To -RI -- Bed Mobility to 1 Edge of bed -RI -- Level of Assistance 1 Maximum Assist x2 -RI -- Bed Mobility Comments 1 HOB elevated 30 degrees; assist for trunk elevation and hip negotiation toward EOB -RI -- Transfer Yes -RI -- Transfer From 1 Sit;Bed -RI -- Transfer Type 1 To and from -RI -- Transfer to 1 Stand -RI -- Technique 1 Stand to sit;Sit to stand -RI -- Transfer Device 1 Hand held assist -RI -- Transfer Level of Assistance 1 Maximum Assist x2 -RI -- Trials/Comments 1 x2 trials from EOB; assist for force production and hip/knee extension for upright posture -RI -- Transfer From 2 Sit;Bed -RI -- Transfer Type 2 To -RI -- Transfer to 2 Sit;Chair with arms -RI -- Technique 2 Stand pivot -RI -- Transfer Device 2 Hand held assist -RI -- Transfer Level of Assistance 2 Maximum Assist x2 -RI -- Trials/Comments 2 assist for -RI -- Ambulation No -RI -- Ambulation Comments 1 Unable to assess this date -RI -- Stairs No -RI -- RUE Assessment X -RI -- R Shoulder Flexion 100 Degrees -RI -- LUE Assessment X -RI -- L Shoulder Flexion 90 Degrees -RI -- RLE Assessment WFL -RI -- LLE Assessment X -RI -- L Hip Flexion /5 -RI -- L Hip ABduction 09/27 -RI -- Equipment Use Comments Gait belt in use with all OOB mobility -RI -- Other PT Comments Pt very self-limiting and very particular. She responds well to strict commands -RI -- How much difficulty does the patient have: Turning over in bed 2 -RI -- How much difficulty does the patient [...] Climbing 3-5 steps with a railing? 1 -RI -- Total 6 Click Score (range 6-24) 10 -RI -- Score Interpretation 28.13 -RI -- Prognosis Fair -RI -- Problem List Gait deviations;Decreased strength;Decreased endurance;Impaired balance;Decreased mobility;Obesity;Orthopedic restrictions;Pain -RI -- Problem List Comments Pt s/p L AKA results in above listed activity deficits and impairments which prevent full participation in home and community mobility. -RI -- Barriers to Discharge Current Mobility Status;Decreased safety awareness -RI -- Plan Plan of care initiated;If this is the last note, consider this the discharge summary -RI -- PT Recommendation/Plan Jail Facility -RI -- PT Recommendation/Plan Comments back to facility -RI -- PT Frequency Daily 6-7x/week -RI Monitor status -RI Treatment/Interventions Balance Training;Bed mobility;Endurance training;Equipment eval/education;Functional activity;Functional [...] Progress Notes signed by Gilberto Armstrong, PT ECTOR * Plan of Care - Bernardo Burgess [...] stable and is requiring PRN pain meds. ECTOR * Assessment & Plan Note - Obed Martinez MD - 07/08/2020 4:27 PM COLLECTOR Associated Problem(s): Hyponatremia - Pt with history of hypoNa (per report, baseline mid 120- low 130s). - Na 126 on admission. No AMS. - TSH wnl. Cortisol 17. - Na stable. ECTOR ECTOR * Assessment & Plan Note - Obed Martinez MD - 07/08/2020 4:27 PM COLLECTOR Associated Problem(s): Chronic respiratory failure (HCC) - Per pt 2/2 COPD. No sings of acute exacerbation. - Continue home flonase - Continue home albuterol prn - On home is on 4L O2 at baseline ECTOR * Assessment & Plan Note - Obed Martinez MD - 07/08/2020 4:27 PM COLLECTOR Associated Problem(s): Open displaced comminuted fracture of shaft of left tibia, type IIIA, IIIB, or IIIC - See above. ECTOR * Assessment & Plan Note - Obed Martinez MD - 07/08/2020 4:26 PM COLLECTOR Associated Problem(s): Moderate essential hypertension - Follows with cardiology. - Continue home amlodipine, metoprolol, lasix, spironolactone. - Switched olmesartan to losartan as not on formulary. ECTOR * Assessment & Plan Note - Obed Martinez MD - 07/08/2020 4:25 PM COLLECTOR Associated Problem(s): COVID-19 - Patient tested positive for COVID-19 on 06/21/20 at her fdc ([facility] in [place], [place]). - She reports her only symptom [...] of her positive test from her SNF. ECTOR ECTOR ECTOR ECTOR ECTOR * Assessment & Plan Note - Obed Martinez MD - 07/08/2020 4:21 PM COLLECTOR Associated Problem(s): Left lower extremity infection History [...] left lower extremity. - PM&R consulted. - Vulcanizing Press Operator placed stump chief of hospital medicine / ampushield. Awaiting delivery of limb protector. - Patient not interested in prosthesis at this time. - PT/OT consults. - Plan for patient to return to her prior SNF when medically stable with ongoing PT/OT. - ID and Ortho following. ECTOR ECTOR ECTOR ECTOR ECTOR ECTOR * Op Note - Jacobo Shoemaker MD - 07/08/2020 11:58 AM COLLECTOR OPERATIVE REPORT Date of Surgery: 07/08/2020 Attending [...] [facility] POSTOPERATIVE PLAN: 1. Non [...] was immediately available. Jacobo Shoemaker MD MSc ECTOR * Brief Op Note - Ernesto Devine MD PhD - 07/08/2020 11:58 AM COLLECTOR Operative Progress Note Surgical Team: Surgeon(s) and Role: * Jacobo Shoemaker MD - Primary * Ernesto Devine MD PhD - Resident - Assisting * Huang Martin MD - Resident - Assisting Anesthesiologist: Monroe Mariscal MD AUTOMOBILE LIGHTS ASSEMBLER: Efren Cobb CRNA Registered Nurse Practitioner: Malena Lara RN; Hernando Henriquez RN; Gumaro Hugo RN Bee Tender: Julissa Aguilar RT Scrub Relief: Joe Murillo [...] Jacobo Shoemaker MD at 07/09/2020 6:36 AM COLLECTOR ECTOR ECTOR * Assessment & Plan Note - Vianney Dia MD - 07/07/2020 6:26 PM COLLECTOR Associated Problem(s): Moderate essential hypertension - Follows with cardiology - Continue home amlodipine, metoprolol, lasix, spironolactone - Switched olmesartan to losartan as not on formulary ECTOR * Assessment & Plan Note - Vianney Dia MD - 07/07/2020 6:26 PM COLLECTOR Associated Problem(s): Chronic respiratory failure (HCC) - Per pt 2/2 COPD. No sings of acute exacerbation. - Continue home flonase - Continue home albuterol prn - On baseline 4L O2 ECTOR * Assessment & Plan Note - Vianney Dia MD - 07/07/2020 6:25 PM COLLECTOR Associated Problem(s): Hyponatremia - Pt with history of hypoNa (per report, baseline mid 120- low 130s). - Na 126 on admission. No AMS. - TSH wnl. Cortisol 17. - Diuretics were held and Na improved to 132. Restart when able. ECTOR * Assessment & Plan Note - Vianney Dia MD - 07/07/2020 6:22 PM COLLECTOR Associated Problem(s): COVID-19 - Pt states she [...] up. - COVID isolation per hospital protocol ECTOR * Assessment & Plan Note - Vinaney Dia MD - 07/07/2020 6:17 PM COLLECTOR Associated Problem(s): Left lower extremity infection - [...] - PT/OT - Nonweightbearing left lower extremity ECTOR ECTOR * Subjective & Objective - Vianney Dia MD - 07/07/2020 6:11 PM COLLECTOR Daily Progress Note Division of Hospital Medicine COVID Unit Name: Celestina Ansari Today: July 07, 2020 : 1950 Age: 69 y.o. female Admit: 07/05/2020 Bed: [id number] Subjective Chief complaint: L leg infection c/f [...] 132. Restart when able. Chronic respiratory failure ([facility]) Assessment & Plan - Per pt 2/2 [...] SCD. Holding enoxaparin for procedure. Please call [phone] with any questions or concerns from 7am-7pm. Please call the [employer] phone after hours. Vianney Caballero MD 07/07/2020 6:27 PM ECTOR * Op Note - Ethel Amaro MD [...] for non critical portions of the case. ECTOR * Brief Op Note - Brittany Jackson MD - 07/06/2020 5:38 PM CST Operative Progress Note Surgical Team: Surgeon(s) and Role: * Ethel Amaro MD - Primary * Brittany Jackson MD - Resident - Assisting Anesthesiologist: Cas Reid MD AUTOMOBILE LIGHTS ASSEMBLER: Juan Whiteside CRNA Registered Nurse Practitioner: Ce Kam RN Registered Nurse Practitioner Relief: Frederick Nicole RN Scrub: Manpreet Aguilar [...] Ethel Amaro MD at 07/07/2020 7:01 PM COLLECTOR ECTOR ECTOR * Hospital Course - Arianna Huynh MD - 07/06/2020 4:42 PM COLLECTOR Left leg infection- subcutaneous infection vs OM [...] Continued home ativan 0.5mg q6h PRN, buspar? ECTOR ECTOR ECTOR ECTOR ECTOR ECTOR ECTOR ECTOR ECTOR ECTOR * Assessment & Plan Note - Og Cintron MD - 07/06/2020 11:58 AM CSTAssociated Problem(s): COVID-19 - recommend getting records from SNF to establish exact date of first (+) COVID test. - pt likely has completed days of isolation. ECTOR * Assessment & Plan Note - Og [...] contact the ID B&J Team PA at [phone] (desk) or [phone] (work cell) M-F, 7-3; or the Attending at [phone] (pager) with any questions or concerns. After hours, the ID fellow director geothermal operations can be reached at [phone]. ECTOR ECTOR ECTOR ECTOR ECTOR ECTOR ECTOR ECTOR ECTOR ECTOR ECTOR ECTOR ECTOR * Assessment & Plan Note - Vianney Dia MD - 07/06/2020 7:34 AM COLLECTOR Associated Problem(s): UTI (urinary tract infection) (Deleted) - UA suggestive of UTI. Bacteria +, Yeast + - Urcx and Bcx pending - Start antimicrobials post-OR ECTOR ECTOR * Assessment & Plan Note - Vianney Dia MD - 07/06/2020 7:33 AM COLLECTOR Associated Problem(s): COVID-19 - Per report, pt [...] SpO2 - COVID isolation per hospital protocol ECTOR * Assessment & Plan Note - Vianney Dia MD - 07/06/2020 7:33 AM COLLECTOR Associated Problem(s): Moderate essential hypertension - Follows with cardiology - Continue home amlodipine, metoprolol, lasix, spironolactone - Switched olmesartan to losartan as not on formulary ECTOR ECTOR * Assessment & Plan Note - Vianney Dia MD - 07/06/2020 7:33 AM COLLECTOR Associated Problem(s): Chronic respiratory failure (HCC) - Per pt 2/2 COPD. No sings of acute exacerbation. - Continue home flonase - Continue home albuterol prn - On baseline 4L O2 ECTOR * Assessment & Plan Note - Vianney Dia MD - 07/06/2020 7:27 AM COLLECTOR Associated Problem(s): Hyponatremia - Pt with history of hypoNa (per report, baseline mid 120- low 130s). - Na 126 on admission. No AMS. - TSH wnl. Cortisol 17. - NS IVF - CTM Na ECTOR ECTOR * Assessment & Plan Note - Vianney Dia MD - 07/06/2020 7:23 AM COLLECTOR Associated Problem(s): Left lower extremity infection - [...] 6 wk course of antibiotics. Appreciate recs. ECTOR ECTOR ECTOR * Subjective & Objective - Vianney Dia MD - 07/06/2020 7:14 AM COLLECTOR Daily Progress Note Division of Hospital Medicine COVID Unit Name: Celestina Ansari Today: July 06, 2020 : 1950 Age: 69 y.o. female Admit: 07/05/2020 Bed: [id number] Subjective Chief complaint: L leg infection c/f [...] - Start antimicrobials post-OR Chronic respiratory failure ([facility] Assessment & Plan - Per pt 2/2 [...] SCD. Holding enoxaparin for procedure. Please call [phone] with any questions or concerns from 7am-7pm. Please call the cross cover phone after hours. Vianney Caballero MD 07/06/2020 3:10 PM ECTOR ECTOR * Plan of Care - Lili Marroquin [...] care. Will continue to monitor patient's progress. ECTOR * Assessment & Plan Note - Vianney Dia MD - 07/05/2020 6:01 PM COLLECTOR Associated Problem(s): Closed displaced bimalleolar fracture of right lower leg - As elsewhere ECTOR * Assessment & Plan Note - Vianney Dia MD - 07/05/2020 6:00 PM COLLECTOR Associated Problem(s): Chronic respiratory failure (HCC) - Per pt 2/2 COPD. No sings of acute exacerbation. - Continue home flonase - Continue home albuterol prn - On baseline 4L O2 ECTOR ECTOR * Plan of Care - Janis Crabtree RN - 07/05/2020 6:00 PM COLLECTOR Goals: Clinical Goals for the Shift: admission [...] orders. Will continue to monitor patient's progress. ECTOR * Assessment & Plan Note - Vianney Dia MD - 07/05/2020 5:58 PM COLLECTOR Associated Problem(s): Open displaced comminuted fracture of shaft of left tibia, type IIIA, IIIB, or IIIC - L tibia and R ankle fractures s/p BRENNA in 06/2020 - Complicated by poor healing and multiple infections of L anterior leg wound - Pt of Dr. Shoemaker ECTOR * Assessment & Plan Note - Vianney Dia MD - 07/05/2020 5:57 PM COLLECTOR Associated Problem(s): Moderate essential hypertension - Follows with cardiology - Continue home amlodipine, metoprolol, lasix, spironolactone - Switch olmesartan to losartan as not on formulary ECTOR * Assessment & Plan Note - Vianney Dia MD - 07/05/2020 4:16 PM COLLECTOR Associated Problem(s): Left lower extremity infection - [...] threshold to start antibiotics. - Consult ortho ECTOR ECTOR ECTOR ECTOR * Assessment & Plan Note - Vianney Dia MD - 07/05/2020 4:14 PM COLLECTOR Associated Problem(s): COVID-19 - Per report, pt [...] SpO2 - COVID isolation per hospital protocol ECTOR ECTOR * Subjective & Objective - Vianney Dia MD - 07/05/2020 4:13 PM COLLECTOR History and Physical Division of Hospital Medicine [...] vancomycin x 1 and was transferred to [facility]. Also per report, pt was hyponatremic Na 123 (baseline 126-low 130s) but lab results not included in [facility] paper chart. Of note, pt recently diagnosed with COVID at [facility] (per report 2 days prior to admission). Pt states she was having a cough and that at the SNF they regularly test patients. Denies fevers, chills, shortness of breath, abd pain, diarrhea, nausea, loss of smell or taste. She satting well on baseline 4LNC. I reviewed pt's Epic chart and paper chart from [facility]. Past Medical History: Diagnosis Date ??? Asthma [...] ??? Iodine Unknown ??? Latex Unknown ??? [place]-3 Fatty Acids Unknown ??? Other Unknown seafood [...] GM Sodium DVT Prophylaxis: lovenox Please call [phone] with any questions or concerns from 7 am to 7pm. Call the [employer] cover phone after hours. Vianney Caballero MD 07/05/2020 6:02 PM ECTOR ECTOR ECTOR ECTOR documented in this encounter Plan of Treatment Scheduled Orders Name Type Priority Associated Diagnoses Orde r Schedule Urinalysis reflex to microscopic and culture Urine Microbiology Routine Once for 1 Occurrences starting 07/05/2020 until 07/05/2020 documented as of this encounter Procedures Procedure Name Priority Date/Time Associated Diagnosis Comments DIFFERENTIAL AUTO Timed 07/12/2020 9:3 8 AM COLLECTOR CBC WITH AUTO DIFFERENTIAL Timed 07/12/2020 9:38 AM COLLECTOR BASIC METABOLIC PANEL Timed 07/12/2020 9:38 AM COLLECTOR DIFFERENTIAL AUTO Routine 07/11/2020 5:3 1 PM COLLECTOR CBC WITH AUTO DIFFERENTIAL Routine 07/11/2020 5:31 PM COLLECTOR MAGNESIUM Routine 07/11/2020 5:31 PM COLLECTOR VANCOMYCIN LEVEL TROUGH Timed 07/11/20 20 5:31 PM COLLECTOR COMPREHENSIVE METABOLIC PANEL Routine 07/11/2020 5:31 PM COLLECTOR DIFFERENTIAL AUTO Routine 07/10/2020 9:0 4 PM COLLECTOR CBC WITH AUTO DIFFERENTIAL Routine 07/10/2020 9:04 PM COLLECTOR COMPREHENSIVE METABOLIC PANEL Routine 07/10/2020 9:04 PM COLLECTOR DIFFERENTIAL AUTO Routine 07/09/2020 9:0 3 PM COLLECTOR CBC WITH AUTO DIFFERENTIAL Routine 07/09/2020 9:03 PM COLLECTOR COMPREHENSIVE METABOLIC PANEL Routine 07/09/2020 9:03 PM COLLECTOR POCT GLUCOSE DEVICE Routine 07/09/2020 9 :02 PM COLLECTOR POCT GLUCOSE DEVICE Routine 07/09/2020 4 :34 PM COLLECTOR DIFFERENTIAL AUTO Routine 07/08/2020 5:5 7 PM COLLECTOR CBC WITH AUTO DIFFERENTIAL Routine 07/08/2020 5:57 PM COLLECTOR BLOOD CULTURE STAT 07/08/2020 5:57 PM COLLECTOR BLOOD CULTURE STAT 07/08/2020 5:57 PM COLLECTOR VANCOMYCIN LEVEL TROUGH Timed 07/08/20 20 5:57 PM COLLECTOR COMPREHENSIVE METABOLIC PANEL Routine 07/08/2020 5:57 PM COLLECTOR TISSUE AEROBIC AND ANAEROBIC CULTURE AND GRAM STAIN Routine 07/08/2020 1:18 PM COLLECTOR FL FLUOROSCOPY < 1 HOUR (STATISTICAL ONLY) IP Routine 07/08/2020 12:52 PM COLLECTOR SURGICAL PATHOLOGY Routine 07/08/2020 12:18 PM COLLECTOR Leg skin lesion, left AMPUTATION ABOVE KNEE 07/08/2020 11:14 AM COLLECTOR Leg skin lesion, left XR TIBIA FIBULA LEFT 2 VIEWS IP Routine 07/08/2020 1:04 AM COLLECTOR ECG 12-LEAD Routine 07/07/2020 11:59 PM COLLECTOR DIFFERENTIAL AUTO Routine 07/07/2020 10:06 PM COLLECTOR CBC WITH AUTO DIFFERENTIAL Routine 07/07/2020 10:06 PM COLLECTOR TYPE AND SCREEN STAT 07/07/2020 10:06 PM COLLECTOR COMPREHENSIVE METABOLIC PANEL Routine 07/07/2020 10:06 PM COLLECTOR CBC WITH AUTO DIFFERENTIAL Routine 07/06/2020 11:07 PM COLLECTOR MANUAL DIFFERENTIAL Routine 07/06/2020 11:07 PM COLLECTOR COMPREHENSIVE METABOLIC PANEL Routine 07/06/2020 11:07 PM COLLECTOR FL FLUOROSCOPY < 1 HOUR IP Routine 07/06/20 20 6:10 PM COLLECTOR TISSUE AEROBIC AND ANAEROBIC CULTURE AND GRAM STAIN Routine 07/06/2020 6:07 PM COLLECTOR MYCOLOGY (FUNGAL) CULTURE Routine 07/06/2020 6:07 PM COLLECTOR MYCOBACTERIOLOGY AFB CULTURE Routine 07/06/2020 6:07 PM COLLECTOR TISSUE AEROBIC AND ANAEROBIC CULTURE AND GRAM STAIN Routine 07/06/2020 5:59 PM COLLECTOR MYCOLOGY (FUNGAL) CULTURE Routine 07/06/2020 5:59 PM COLLECTOR MYCOBACTERIOLOGY AFB CULTURE Routine 07/06/2020 5:59 PM COLLECTOR TISSUE AEROBIC AND ANAEROBIC CULTURE AND GRAM STAIN Routine 07/06/2020 5:56 PM COLLECTOR MYCOLOGY (FUNGAL) CULTURE Routine 07/06/2020 5:56 PM COLLECTOR MYCOBACTERIOLOGY AFB CULTURE Routine 07/06/2020 5:[address] LOWER LEG CALF LEFT WO CONTRAST ED Urgent/IP Urgent 07/06/2020 6:42 AM COLLECTOR URINALYSIS AND REFLEX TO MICROSCOPIC AND CULTURE STAT 07/05/2020 11:19 PM COLLECTOR SODIUM, URINE, RANDOM Routine 07/05/2020 11:19 PM COLLECTOR OSMOLALITY, URINE Routine 07/05/2020 11:19 PM COLLECTOR URINALYSIS, MICROSCOPIC ONLY STAT 07/05/2020 11:19 PM COLLECTOR URINE CULTURE STAT 07/05/2020 11:19 PM COLLECTOR THYROID FUNCTION CASCADE Routine 07/05/2020 9:22 PM COLLECTOR BLOOD CULTURE Routine 07/05/2020 9:22 PM COLLECTOR BLOOD CULTURE Routine 07/05/2020 9:22 PM COLLECTOR APTT Routine 07/05/2020 9:22 PM COLLECTOR TYPE AND SCREEN Timed 07/05/2020 9:22 PM COLLECTOR OSMOLALITY, BLOOD Routine 07/05/2020 9:2 2 PM COLLECTOR CORTISOL Timed 07/05/2020 9:22 PM COLLECTOR ECG 12-LEAD Routine 07/05/2020 7:29 PM COLLECTOR XR TRANSFER OF OUTSIDE FILMS Routine 07/05/2020 6:15 PM COLLECTOR Diagnosis unknown LACTATE Routine 07/05/2020 6:13 PM COLLECTOR DIFFERENTIAL AUTO Routine 07/05/2020 6:1 3 PM COLLECTOR CBC WITH AUTO DIFFERENTIAL Routine 07/05/2020 6:13 PM COLLECTOR ERYTHROCYTE SEDIMENTATION RATE Routine 07/05/2020 6:13 PM COLLECTOR PROTIME-INR Routine 07/05/2020 6:13 PM COLLECTOR D-DIMER, QUANTITATIVE Routine 07/05/2020 6:13 PM COLLECTOR CRP (ACUTE PHASE) Routine 07/05/2020 6:1 3 PM COLLECTOR PHOSPHORUS Routine 07/05/2020 6:13 PM COLLECTOR MAGNESIUM Routine 07/05/2020 6:13 PM COLLECTOR HEMOGLOBIN A1C Routine 07/05/2020 6:13 PM COLLECTOR HEPATIC FUNCTION PANEL Routine 0 6:13 PM COLLECTOR BASIC METABOLIC PANEL Routine 07/05/2020 6:13 PM COLLECTOR XR CHEST 1 VIEW IP Routine 07/05/2020 5:22 PM COLLECTOR COVID-19 CORONAVIRUS RNA Routine 06/21/2020 documented in this encounter Results * (ABNORMAL) Differential, auto (07/12/2020 9:38 AM COLLECTOR) Neutrophil abs 8.2(H) 1.7 - 6.5 K/cumm [facility] Imm gran abs 0.6(H) 0.0 - 0.1 K/cumm [facility] Lymphocyte abs 2.5 0.8 - 3.3 K/cumm [facility] Monocyte abs 1.2(H) 0.2 - 0.8 K/cumm [facility] Eosinophil abs 0.2 0.0 - 0.5 K/cumm [facility] Basophil abs 0.1 0.0 - 0.1 K/cumm [facility] Neutrophil pct 63.7 % [facility] Comment: Interpretive Data Percent cell count reference ranges are not reported, since discordance with absolute values may lead to misinterpretation of CBC data. Current Interpretive Data was last revised on 2017. Imm gran pct 4.7 % [facility] Comment: Interpretive Data Percent cell count reference ranges are not reported, since discordance with absolute values may lead to misinterpretation of CBC data. Current Interpretive Data was last revised on 2017. Lymphocyte pct 19.6 % [facility] Comment: Interpretive Data Percent cell count reference ranges are not reported, since discordance with absolute values may lead to misinterpretation of CBC data. Current Interpretive Data was last revised on 2017. Monocyte pct 9.5 % [facility] Comment: Interpretive Data Percent cell count reference ranges are not reported, since discordance with absolute values may lead to misinterpretation of CBC data. Current Interpretive Data was last revised on 2017. Eosinophil pct 1.9 % [facility] Comment: Interpretive Data Percent cell count reference ranges are not reported, since discordance with absolute values may lead to misinterpretation of CBC data. Current Interpretive Data was last revised on 2017. Basophil pct 0.6 % [facility] Comment: Interpretive Data Percent cell count reference ranges are not reported, since discordance with absolute values may lead to misinterpretation of CBC data. Current Interpretive Data was last revised on 2017. Blood specimen (specimen) 07/12/2020 9:38 AM COLLECTOR 07/12/2020 9:57 AM COLLECTOR Christopher Jay MD LAB BLOOD ORDERABLES Ellyn adams Result [facility] Department [place] [address] * (ABNORMAL) CBC with auto differential (07/12/2020 9:38 AM COLLECTOR) [facility] WBC 12.9(H) 3.8 - 9.9 K/cumm [facility] Hgb 8.7(L) 11.9 - 15.5 g/dL [facility] Hct 26.3(L) 35.6 - 45.5 % [facility] Plt 322 150 - 400 K/cumm [facility] MPV 9.5 9.1 - 12.3 fL [facility] RBC 2.73(L) 3.90 - 5.20 M/cumm [facility] MCV 96.3 81.3 - 96.4 fL [facility] MCH 31.9 27.1 - 33.3 pg [facility] MCHC 33.1 32.3 - 35.7 g/dL [facility] RDW CV 12.2 11.1 - 14.9 % [facility] RDW SD 42.4 35.7 - 48.1 fL [facility] NRBC abs 0.00 0.00 - 0.01 K/cumm [facility] Blood specimen (specimen) 07/12/2020 9:38 AM COLLECTOR 07/12/2020 9:57 AM COLLECTOR Christopher Jay MD LAB BLOOD ORDERABLES Ellyn adams Result [facility] Department [place] [address] * (ABNORMAL) Basic metabolic panel (07/12/2020 9:38 AM COLLECTOR) [facility] Sodium 129(L) 135 - 145 mmol/L [facility] Potassium, pl 5.1(H) 3.3 - 4.9 mmol/L [facility] Chloride 92(L) 97 - 110 mmol/L [facility] CO2 28 22 - 32 mmol/L [facility] Anion gap 9 2 - 15 mmol/L [facility] BUN 10 8 - 25 mg/dL [facility] Creatinine 0.64 0.60 - 1.10 mg/dL [facility] Glucose 169 70 - 199 mg/dL [facility] Comment: Interpretive Data Fasting glucose >/= 126 [...] 2017. Calcium 8.8 8.5 - 10.3 mg/dL [facility] Blood specimen (specimen) 07/12/2020 9:38 AM COLLECTOR 07/12/2020 9:57 AM COLLECTOR Christopher Jay MD LAB BLOOD ORDERABLES Ellyn l Result Performing Organization Address [facility] Co de Phone Number [facility] Department [place] [address] * Magnesium (07/11/2020 5:31 PM COLLECTOR) Pathologist [facility] Magnesium 2.0 1.4 - 2.5 mg/dL [facility] Blood specimen (specimen) 07/11/2020 5:31 PM COLLECTOR 07/11/2020 7:04 PM COLLECTOR Obed Martinez MD LAB BLOOD ORDERABLES Fi nal Result Performing Organization Address [facility] de Phone Number [facility] Department [place] [address] * (ABNORMAL) Differential, auto (07/11/2020 5:31 PM COLLECTOR) Neutrophil abs 8.4(H) 1.7 - 6.5 K/cumm [facility] Imm gran abs 0.7(H) 0.0 - 0.1 K/cumm [facility] Lymphocyte abs 2.3 0.8 - 3.3 K/cumm [facility] Monocyte abs 1.4(H) 0.2 - 0.8 K/cumm [facility] Eosinophil abs 0.3 0.0 - 0.5 K/cumm [facility] Basophil abs 0.1 0.0 - 0.1 K/cumm [facility] Neutrophil pct 64.1 % [facility] Comment: Interpretive Data Percent cell count reference ranges are not reported, since discordance with absolute values may lead to misinterpretation of CBC data. Current Interpretive Data was last revised on 2017. Imm gran pct 5.3 % [facility] Comment: Interpretive Data Percent cell count reference ranges are not reported, since discordance with absolute values may lead to misinterpretation of CBC data. Current Interpretive Data was last revised on 2017. Lymphocyte pct 17.7 % [facility] Comment: Interpretive Data Percent cell count reference ranges are not reported, since discordance with absolute values may lead to misinterpretation of CBC data. Current Interpretive Data was last revised on 2017. Monocyte pct 10.4 % [facility] Comment: Interpretive Data Percent cell count reference ranges are not reported, since discordance with absolute values may lead to misinterpretation of CBC data. Current Interpretive Data was last revised on 2017. Eosinophil pct 2.1 % [facility] Comment: Interpretive Data Percent cell count reference ranges are not reported, since discordance with absolute values may lead to misinterpretation of CBC data. Current Interpretive Data was last revised on 2017. Basophil pct 0.4 % [facility] Comment: Interpretive Data Percent cell count reference ranges are not reported, since discordance with absolute values may lead to misinterpretation of CBC data. Current Interpretive Data was last revised on 2017. Blood specimen (specimen) 07/11/2020 5:31 PM COLLECTOR 07/11/2020 7:04 PM COLLECTOR us Vianney Caballero MD LAB BLOOD ORDERABLES Fin al Result [facility] Department [place] [address] * (ABNORMAL) CBC with auto differential (07/11/2020 5:31 PM COLLECTOR) [facility] WBC 13.0(H) 3.8 - 9.9 K/cumm [facility] Hgb 7.6(L) 11.9 - 15.5 g/dL [facility] Hct 24.4(L) 35.6 - 45.5 % [facility] Plt 351 150 - 400 K/cumm [facility] MPV 9.9 9.1 - 12.3 fL [facility] RBC 2.54(L) 3.90 - 5.20 M/cumm [facility] MCV 96.1 81.3 - 96.4 fL [facility] MCH 29.9 27.1 - 33.3 pg [facility] MCHC 31.1(L) 32.3 - 35.7 g/dL [facility] RDW CV 12.2 11.1 - 14.9 % [facility] RDW SD 42.8 35.7 - 48.1 fL [facility] NRBC abs 0.00 0.00 - 0.01 K/cumm [facility] Blood specimen (specimen) 07/11/2020 5:31 PM COLLECTOR 07/11/2020 7:04 PM COLLECTOR Obed Martinez MD LAB BLOOD ORDERABLES Fi nal Result [facility] Department [place] [address] * (ABNORMAL) Comprehensive metabolic panel (07/11/2020 5:31 PM COLLECTOR) [facility] Sodium 128(L) 135 - 145 mmol/L [facility] Potassium, pl 5.2(H) 3.3 - 4.9 mmol/L [facility] Chloride 92(L) 97 - 110 mmol/L [facility] CO2 28 22 - 32 mmol/L [facility] Anion gap 8 2 - 15 mmol/L [facility] BUN 11 8 - 25 mg/dL [facility] Creatinine 0.70 0.60 - 1.10 mg/dL [facility] Glucose 100 70 - 199 mg/dL [facility] Comment: Interpretive Data Fasting glucose >/= 126 [...] 2017. Calcium 8.8 8.5 - 10.3 mg/dL [facility] Bilirubin, total 0.2 0.1 - 1.2 mg/dL [facility] Protein, pl 6.7 6.5 - 8.5 g/dL [facility] Albumin 2.6(L) 3.5 - 5.0 g/dL [facility] Alk phos 134(H) 40 - 130 Units/L [facility] ALT 16 7 - 45 Units/L [facility] AST 31 10 - 45 Units/L [facility] Blood specimen (specimen) 07/11/2020 5:31 PM COLLECTOR 07/11/2020 7:04 PM COLLECTOR Obed Martinez MD LAB BLOOD ORDERABLES Fi nal Result [facility] [place] [address] * (ABNORMAL) Vancomycin, trough Please draw trough before tonight's dose. Can draw all AM labs at that time. Thanks! (07/11/2020 5:31 PM COLLECTOR) Vancomycin trough 8.6(L) 10.0 - 20.9 mcg/mL [facility] Blood specimen (specimen) 07/11/2020 5:31 PM COLLECTOR 07/11/2020 6:57 PM COLLECTOR Narrative [facility] - 07/11/2020 7:25 PM COLLECTOR Please draw trough before tonight's dose. Can draw all AM labs at that time. Thanks! us Obed Martinez MD LAB BLOOD ORDERABLES Fi nal Result [facility] [place] [address] * (ABNORMAL) Differential, auto (07/10/2020 9:04 PM COLLECTOR) Neutrophil abs 12.6(H) 1.7 - 6.5 K/cumm [facility] Imm gran abs 1.0(H) 0.0 - 0.1 K/cumm [facility] Lymphocyte abs 4.3(H) 0.8 - 3.3 K/cumm [facility] Monocyte abs 4.7(H) 0.2 - 0.8 K/cumm [facility] Eosinophil abs 0.1 0.0 - 0.5 K/cumm [facility] Basophil abs 0.1 0.0 - 0.1 K/cumm [facility] Neutrophil pct 55.4 % [facility] Comment: Interpretive Data Percent cell count reference ranges are not reported, since discordance with absolute values may lead to misinterpretation of CBC data. Current Interpretive Data was last revised on 2017. Imm gran pct 4.2 % [facility] Comment: Interpretive Data Percent cell count reference ranges are not reported, since discordance with absolute values may lead to misinterpretation of CBC data. Current Interpretive Data was last revised on 2017. Lymphocyte pct 18.9 % [facility] Comment: Interpretive Data Percent cell count reference ranges are not reported, since discordance with absolute values may lead to misinterpretation of CBC data. Current Interpretive Data was last revised on 2017. Monocyte pct 20.6 % [facility] Comment: Interpretive Data Percent cell count reference ranges are not reported, since discordance with absolute values may lead to misinterpretation of CBC data. Current Interpretive Data was last revised on 2017. Eosinophil pct 0.4 % [facility] Comment: Interpretive Data Percent cell count reference ranges are not reported, since discordance with absolute values may lead to misinterpretation of CBC data. Current Interpretive Data was last revised on 2017. Basophil pct 0.5 % [facility] Comment: Interpretive Data Percent cell count reference ranges are not reported, since discordance with absolute values may lead to misinterpretation of CBC data. Current Interpretive Data was last revised on 2017. Blood specimen (specimen) 07/10/2020 9:04 PM COLLECTOR 07/10/2020 10:17 PM COLLECTOR us Vianney Caballero MD LAB BLOOD ORDERABLES Fin al Result Performing Organization Address City/[facility] Co de Phone Number [facility] Department [place] [address] * (ABNORMAL) CBC with auto differential (07/10/2020 9:04 PM COLLECTOR) WBC 22.8(H) 3.8 - 9.9 K/cumm [facility] Hgb 10.4(L) 11.9 - 15.5 g/dL [facility] Hct 32.3(L) 35.6 - 45.5 % [facility] Plt 329 150 - 400 K/cumm [facility] MPV 9.7 9.1 - 12.3 fL [facility] RBC 3.40(L) 3.90 - 5.20 M/cumm [facility] MCV 95.0 81.3 - 96.4 fL [facility] MCH 30.6 27.1 - 33.3 pg [facility] MCHC 32.2(L) 32.3 - 35.7 g/dL [facility] RDW CV 11.9 11.1 - 14.9 % [facility] RDW SD 41.5 35.7 - 48.1 fL [facility] NRBC abs 0.00 0.00 - 0.01 K/cumm [facility] Blood specimen (specimen) 07/10/2020 9:04 PM COLLECTOR 07/10/2020 10:17 PM COLLECTOR us Obed Martinez MD LAB BLOOD ORDERABLES Fi nal Result Performing Organization Address City/[facility]/ZIP Co de Phone Number [facility] Department [place] [address] * (ABNORMAL) Comprehensive metabolic panel (07/10/2020 9:04 PM COLLECTOR) Sodium 128(L) 135 - 145 mmol/L [facility] Potassium, pl 5.1(H) 3.3 - 4.9 mmol/L [facility] Chloride 92(L) 97 - 110 mmol/L [facility] CO2 28 22 - 32 mmol/L [facility] Anion gap 8 2 - 15 mmol/L [facility] BUN 7(L) 8 - 25 mg/[facility] Creatinine 0.56(L) 0.60 - 1.10 mg/dL [facility] Glucose 130 70 - 199 mg/dL [facility] Comment: Interpretive Data Fasting glucose >/= 126 [...] 2017. Calcium 8.8 8.5 - 10.3 mg/dL [facility] Bilirubin, total 0.2 0.1 - 1.2 mg/dL [facility] Protein, pl 7.1 6.5 - 8.5 g/dL [facility] Albumin 2.9(L) 3.5 - 5.0 g/dL [facility] Alk phos 135(H) 40 - 130 Units/L [facility] ALT 12 7 - 45 Units/L [facility] AST 28 10 - 45 Units/L [facility] Blood specimen (specimen) 07/10/2020 9:04 PM COLLECTOR 07/10/2020 10:17 PM COLLECTOR us Obed Martinez MD LAB BLOOD ORDERABLES Fi nal Result [facility] One [facility] [place] [address] * (ABNORMAL) Differential, auto (07/09/2020 9:03 PM COLLECTOR) Neutrophil abs 11.1(H) 1.7 - 6.5 K/cumm [facility] Imm gran abs 0.7(H) 0.0 - 0.1 K/cumm [facility] Lymphocyte abs 2.0 0.8 - 3.3 K/cumm [facility] Monocyte abs 1.7(H) 0.2 - 0.8 K/cumm [facility] Eosinophil abs 0.0 0.0 - 0.5 K/cumm [facility] Basophil abs 0.1 0.0 - 0.1 K/cumm [facility] Neutrophil pct 70.9 % [facility] Comment: Interpretive Data Percent cell count reference ranges are not reported, since discordance with absolute values may lead to misinterpretation of CBC data. Current Interpretive Data was last revised on 2017. Imm gran pct 4.5 % [facility] Comment: Interpretive Data Percent cell count reference ranges are not reported, since discordance with absolute values may lead to misinterpretation of CBC data. Current Interpretive Data was last revised on 2017. Lymphocyte pct 13.0 % [facility] Comment: Interpretive Data Percent cell count reference ranges are not reported, since discordance with absolute values may lead to misinterpretation of CBC data. Current Interpretive Data was last revised on 2017. Monocyte pct 11.0 % [facility] Comment: Interpretive Data Percent cell count reference ranges are not reported, since discordance with absolute values may lead to misinterpretation of CBC data. Current Interpretive Data was last revised on 2017. Eosinophil pct 0.3 % [facility] Comment: Interpretive Data Percent cell count reference ranges are not reported, since discordance with absolute values may lead to misinterpretation of CBC data. Current Interpretive Data was last revised on 2017. Basophil pct 0.3 % [facility] Comment: Interpretive Data Percent cell count reference ranges are not reported, since discordance with absolute values may lead to misinterpretation of CBC data. Current Interpretive Data was last revised on 2017. Blood specimen (specimen) 07/09/2020 9:03 PM COLLECTOR 07/09/2020 10:01 PM COLLECTOR us Vianney Caballero MD LAB BLOOD ORDERABLES Fin al Result Performing Organization Address [facility] Co de Phone Number [facility] Department [place] [address] * (ABNORMAL) CBC with auto differential (07/09/2020 9:03 PM COLLECTOR) Pathologist [facility] WBC 15.6(H) 3.8 - 9.9 K/cumm [facility] Hgb 8.5(L) 11.9 - 15.5 g/dL [facility] Hct 26.8(L) 35.6 - 45.5 % [facility] Plt 361 150 - 400 K/cumm [facility] MPV 9.4 9.1 - 12.3 fL [facility] RBC 2.83(L) 3.90 - 5.20 M/cumm [facility] MCV 94.7 81.3 - 96.4 fL [facility] MCH 30.0 27.1 - 33.3 pg [facility] MCHC 31.7(L) 32.3 - 35.7 g/dL [facility] RDW CV 11.9 11.1 - 14.9 % [facility] RDW SD 41.7 35.7 - 48.1 fL [facility] NRBC abs 0.00 0.00 - 0.01 K/cumm [facility] Blood specimen (specimen) 07/09/2020 9:03 PM COLLECTOR 07/09/2020 10:01 PM COLLECTOR us Obed Martinez MD LAB BLOOD ORDERABLES Fi nal Result Performing Organization Address [facility]/ZIP Co de Phone Number [facility] Department [place] [address] * (ABNORMAL) Comprehensive metabolic panel (07/09/2020 9:03 PM COLLECTOR) Pathologist [facility] Sodium 127(L) 135 - 145 mmol/L [facility] Potassium, pl 5.0(H) 3.3 - 4.9 mmol/L [facility] Chloride 93(L) 97 - 110 mmol/L [facility] CO2 28 22 - 32 mmol/L [facility] Anion gap 6 2 - 15 mmol/L [facility] BUN 8 8 - 25 mg/dL [facility] Creatinine 0.60 0.60 - 1.10 mg/dL [facility] Glucose 139 70 - 199 mg/dL [facility] Comment: Interpretive Data Fasting glucose >/= 126 [...] 2017. Calcium 8.6 8.5 - 10.3 mg/dL [facility] Bilirubin, total 0.3 0.1 - 1.2 mg/dL [facility] Protein, pl 6.8 6.5 - 8.5 g/dL [facility] Albumin 2.9(L) 3.5 - 5.0 g/dL [facility] Alk phos 149(H) 40 - 130 Units/L [facility] ALT 14 7 - 45 Units/L [facility] AST 29 10 - 45 Units/L [facility] Blood specimen (specimen) 07/09/2020 9:03 PM COLLECTOR 07/09/2020 10:01 PM COLLECTOR us Obed Martinez MD LAB BLOOD ORDERABLES Fi nal Result [facility] [place] [address] * POCT glucose (07/09/2020 9:02 PM COLLECTOR) [facility] Glucose, POC 148 70 - 199 mg/dL [facility] Blood specimen (specimen) 07/09/2020 9:02 PM COLLECTOR 07/09/2020 9:02 PM COLLECTOR Obed Martinez MD LAB POCT ORDERABLES - D EVICE Final Result Performing Organization Address City/[facility]/ZIP Co de Phone Number [facility] [place] [address] * POCT glucose (07/09/2020 4:34 PM COLLECTOR) [facility] Glucose, POC 164 70 - 199 mg/dL [facility] Blood specimen (specimen) 07/09/2020 4:34 PM COLLECTOR 07/09/2020 4:34 PM COLLECTOR Obed Martinez MD LAB POCT ORDERABLES - D EVICE Final Result Performing Organization Address [facility] de Phone Number [facility] [place] [address] * (ABNORMAL) Differential, auto (07/08/2020 5:57 PM COLLECTOR) [facility] Neutrophil abs 22.5(H) 1.7 - 6.5 K/cumm [facility] Imm gran abs 1.4(H) 0.0 - 0.1 K/cumm [facility] Lymphocyte abs 1.0 0.8 - 3.3 K/cumm [facility] Monocyte abs 0.6 0.2 - 0.8 K/cumm [facility] Eosinophil abs 0.0 0.0 - 0.5 K/cumm [facility] Basophil abs 0.1 0.0 - 0.1 K/cumm [facility] Neutrophil pct 87.8 % [facility] Comment: Interpretive Data Percent cell count reference ranges are not reported, since discordance with absolute values may lead to misinterpretation of CBC data. Current Interpretive Data was last revised on 2017. Imm gran pct 5.5 % [facility] Comment: Interpretive Data Percent cell count reference ranges are not reported, since discordance with absolute values may lead to misinterpretation of CBC data. Current Interpretive Data was last revised on 2017. Lymphocyte pct 3.8 % [facility] Comment: Interpretive Data Percent cell count reference ranges are not reported, since discordance with absolute values may lead to misinterpretation of CBC data. Current Interpretive Data was last revised on 2017. Monocyte pct 2.5 % [facility] Comment: Interpretive Data Percent cell count reference ranges are not reported, since discordance with absolute values may lead to misinterpretation of CBC data. Current Interpretive Data was last revised on 2017. Eosinophil pct 0.0 % [facility] Comment: Interpretive Data Percent cell count reference ranges are not reported, since discordance with absolute values may lead to misinterpretation of CBC data. Current Interpretive Data was last revised on 2017. Basophil pct 0.4 % [facility] Comment: Interpretive Data Percent cell count reference ranges are not reported, since discordance with absolute values may lead to misinterpretation of CBC data. Current Interpretive Data was last revised on 2017. Blood specimen (specimen) 07/08/2020 5:57 PM COLLECTOR 07/08/2020 7:33 PM COLLECTOR Vianney Caballero MD LAB BLOOD ORDERABLES Fin al Result [facility] [place] [address] * Blood culture Blood (07/08/2020 5:57 PM COLLECTOR) Report Final Report: No growth [facility] Blood specimen (specimen) 07/08/2020 5:57 PM COLLECTOR 07/08/2020 8:08 PM COLLECTOR Narrative [facility] - 07/13/2020 7:01 AM COLLECTOR 1. ?Blood cultures are incubated for 4 [...] organism identification may be performed using the [employer] Gram-Positive Blood Culture Assay. This assay detects microbial DNA in positive blood culture broth via hybridization of target DNA to capture oligonucleotides on a microarray. This assay has been cleared by the [place] Food and Drug Administration and its performance characteristics have been verified by the [facility]biology Laboratory. 5. ?For questions about this culture, contact the Microbiology Laboratory at [phone]. Interpretive data was last revised on 2019. Obed Martinez MD LAB MICROBIOLOGY - GENE RAL ORDERABLES Final Result [facility] [place] [address] * Blood culture Blood (07/08/2020 5:57 PM COLLECTOR) Report Final Report: No growth [facility] Blood specimen (specimen) 07/08/2020 5:57 PM COLLECTOR 07/08/2020 8:08 PM COLLECTOR Narrative [facility] - 07/13/2020 7:01 AM COLLECTOR 1. ?Blood cultures are incubated for 4 [...] organism identification may be performed using the [employer] Gram-Positive Blood Culture Assay. This assay detects microbial DNA in positive blood culture broth via hybridization of target DNA to capture oligonucleotides on a microarray. This assay has been cleared by the [place] Food and Drug Administration and its performance characteristics have been verified by the [facility]biology Laboratory. 5. ?For questions about this culture, contact the Microbiology Laboratory at [phone]. Interpretive data was last revised on 2019. Obed Martinez MD LAB MICROBIOLOGY - GENE RAL ORDERABLES Final Result [facility] [place] [address] * (ABNORMAL) CBC with auto differential (07/08/2020 5:57 PM COLLECTOR) WBC 25.6(H) 3.8 - 9.9 K/cumm [facility] Hgb 10.9(L) 11.9 - 15.5 g/dL [facility] Hct 34.0(L) 35.6 - 45.5 % [facility] Plt 451(H) 150 - 400 K/cumm [facility] MPV 9.9 9.1 - 12.3 fL [facility] RBC 3.58(L) 3.90 - 5.20 M/cumm [facility] MCV 95.0 81.3 - 96.4 fL [facility] MCH 30.4 27.1 - 33.3 pg [facility] MCHC 32.1(L) 32.3 - 35.7 g/dL [facility] RDW CV 11.9 11.1 - 14.9 % [facility] RDW SD 41.6 35.7 - 48.1 fL [facility] NRBC abs 0.00 0.00 - 0.01 K/cumm [facility] Blood specimen (specimen) 07/08/2020 5:57 PM COLLECTOR 07/08/2020 7:33 PM COLLECTOR us Obed Martinez MD LAB BLOOD ORDERABLES Fi nal Result [facility] [place] [address] * (ABNORMAL) Comprehensive metabolic panel (07/08/2020 5:57 PM COLLECTOR) Sodium 128(L) 135 - 145 mmol/L [facility] Potassium, pl 4.8 3.3 - 4.9 mmol/L [facility] Chloride 91(L) 97 - 110 mmol/L [facility] CO2 26 22 - 32 mmol/L [facility] Anion gap 11 2 - 15 mmol/L [facility] BUN 14 8 - 25 mg/dL [facility] Creatinine 0.70 0.60 - 1.10 mg/dL [facility] Glucose 187 70 - 199 mg/dL [facility] Comment: Interpretive Data Fasting glucose >/= 126 [...] 2017. Calcium 9.1 8.5 - 10.3 mg/dL [facility] Bilirubin, total 0.2 0.1 - 1.2 mg/dL [facility] Protein, pl 7.7 6.5 - 8.5 g/dL [facility] Albumin 3.3(L) 3.5 - 5.0 g/dL [facility] Alk phos 195(H) 40 - 130 Units/L [facility] ALT 26 7 - 45 Units/L [facility] AST 33 10 - 45 Units/L [facility] Blood specimen (specimen) 07/08/2020 5:57 PM COLLECTOR 07/08/2020 7:32 PM COLLECTOR Obed Martinez MD LAB BLOOD ORDERABLES Fi nal Result Performing Organization Address [facility] Co de Phone Number [facility] One [facility] [place] [address] * (ABNORMAL) Vancomycin, trough Please draw before this evening's dose of vancomycin. Thanks! (07/08/2020 5:57 PM COLLECTOR) Vancomycin trough 7.9(L) 10.0 - 20.9 mcg/mL [facility] Blood specimen (specimen) 07/08/2020 5:57 PM COLLECTOR 07/08/2020 7:32 PM COLLECTOR Narrative [facility] - 07/08/2020 8:19 PM COLLECTOR Please draw before this evening's dose of vancomycin. Thanks! Obed Martinez MD LAB BLOOD ORDERABLES Fi nal Result Performing Organization Address [facility] Co de Phone Number [facility] [place] [address] * Tissue aerobic and anaerobic culture and gram stain Bone Leg, left (07/08/2020 1:18 PM COLLECTOR) Pathologist [facility] Direct Specimen Exam Stain: Moderate polymorphonuclear leukocytes seen. No organisms seen. [facility] Report Final Report: No growth [facility] Bone (Leg, left) 07/08/2020 1:18 PM COLLECTOR 07/08/2020 2:25 PM COLLECTOR Narrative [facility] - 07/13/2020 10:46 AM COLLECTOR Left residual femur Testing performed by [facility] Microbiology Laboratory ([phone]) Specimens submitted from normally sterile body sites [...] interpretive data was last revised on 2019. us Jacobo Shoemaker MD LAB MICROBIOLOGY - GENERAL ORDERABLES Final Result Performing Organization Address [facility] Co de Phone Number [facility] [place] [address] * FL Fluoroscopy < 1 Hour (Statistical Only) (07/08/2020 12:52 PM COLLECTOR) Narrative [facility] - 07/08/2020 12:52 PM COLLECTOR The images from this study are not interpreted by Radiology. ??Please refer to the physician's procedure / OR operative note. us Jacobo Shoemaker MD IMG FLUOROSCOPY PROCEDURES Final Result Performing Organization Address [facility] de Phone Number [email or web address] * Surgical pathology (07/08/2020 12:18 PM COLLECTOR) Tissue (Amputation non-tramatic) 07/08/2020 12:18 PM COLLECTOR Narrative PATHOLOGY [facility] - 07/11/2020 12:05 PM COLLECTOR EPIC results best viewed via link to PDF [facility] [place] [address] SURGICAL PATHOLOGY REPORT FINAL Patient Name: ?? CELESTINA ANSARI Gender: ??F : ??1950 (Age: 69) Address: ??[address] ??[address] Hospital #: ??[id number] Taken:07/08/2020 Received:07/08/2020 Reported: 07/11/2020 Patient Type: [facility] Inpatient ?? Service: Orthopedic Surgery Location: [facility] 0102 Physician(s): ??Jacobo Shoemaker M.D. 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 A white plastic, circular lpn or medical assistant replaces the patella and measures 4.0 x 3.3 x 1.0 cm. The distal aspect of the femur is roughened, and the medial and lateral condyles are no longer grossly appreciated. A jerome metallic and white plastic lpn or medical assistant is identified at the proximal tibia and measures 6.0 x 4.4 x 3.5 cm. Sections of the distal femur are easily taken with a scalpel blade. Labeled A1 - floor representative shave of soft tissue and skin at the surgical resection margin; A2 - floor representative section of incision, perpendicular; A3 - floor representative sections of distal femur following acid decal; A4 - shave of femur resection margin following acid decalcification. ??The specimen is returned biohazard bag. [id number]/08/2020 15:24 PA(s): Lisa Cruz MS, JOSE CRUZ ([facility]) By this signature, I attest that the above diagnosis is based upon my personal examination of the slides(and/or other material). Addenda/Procedures The performance characteristics of some immunohistochemical stains, fluorescence in-situ hybridization tests and immunophenotyping by flow cytometry cited in this report (if any) were determined by the Surgical Pathology Department at [facility] as part of an ongoing supplier quality engineering manager program and in compliance with federally [...] determined by the Surgical Pathology Department of [facility]. ??It has not been cleared or approved by the [place]. S. Food and Drug Administration. IMAGES AND SCANNED DOCUMENTS, IF INCLUDED, ONLY VIEWABLE IN PDF VERSION OF REPORT us Jacobo Shoemaker MD LAB PATHOLOGY OR DERABLES Final Result PATHOLOGY [facility] 3rd Floor [place], [place] [phone] * XR Tibia Fibula Left 2 Views (07/08/2020 1:04 AM COLLECTOR) Anatomical Region Laterality Modality Lower Extremities, Lower Leg Left Com puted Radiography 07/08/2020 6:27 AM COLLECTOR Impressions 07/08/2020 6:27 AM COLLECTOR 1. 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 Electronically signed by: Jordan Andrews MD, PHD Narrative 07/08/2020 6:27 AM COLLECTOR EXAMINATION: Left tibia-fibula 2 views HISTORY: ??Left [...] * ECG 12 lead (07/07/2020 11:59 PM COLLECTOR) Pathologist [facility] Ventricular Rate EKG/Min 76 BPM [facility] Atrial Rate 76 BPM [facility] DC-Interval (MSEC) 174 ms [facility] QRS-Interval (MSEC) 84 ms [facility] QT-Interval (MSEC) 414 ms [facility] QTc 465 ms [facility] P [place] 70 degrees [facility] R [place] -21 degrees [facility] T [place] 22 degrees [facility] Diagnosis Normal sinus rhythm Voltage criteria for left ventricular hypertrophy Abnormal ECG When compared with ECG of 05-JUL-2020 19:29, (unconfirmed) No significant change was found Confirmed by GENIE BEAR M.D ([id number]) on 07/08/2020 11:34:42 AM [facility] 07/07/2020 11:5 9 PM COLLECTOR 07/08/2020 11:34 AM COLLECTOR us Huang Gusman MD ECG ORDERABLES Final Result [facility] * (ABNORMAL) Differential, auto (07/07/2020 10:06 PM COLLECTOR) Pathologist [facility] Neutrophil abs 14.9(H) 1.7 - 6.5 K/cumm [facility] Imm gran abs 1.1(H) 0.0 - 0.1 K/cumm [facility] Lymphocyte abs 2.4 0.8 - 3.3 K/cumm [facility] Monocyte abs 1.7(H) 0.2 - 0.8 K/cumm [facility] Eosinophil abs 0.2 0.0 - 0.5 K/cumm [facility] Basophil abs 0.1 0.0 - 0.1 K/cumm [facility] Neutrophil pct 73.4 % [facility] Comment: Interpretive Data Percent cell count reference ranges are not reported, since discordance with absolute values may lead to misinterpretation of CBC data. Current Interpretive Data was last revised on 2017. Imm gran pct 5.3 % [facility] Comment: Interpretive Data Percent cell count reference ranges are not reported, since discordance with absolute values may lead to misinterpretation of CBC data. Current Interpretive Data was last revised on 2017. Lymphocyte pct 11.6 % [facility] Comment: Interpretive Data Percent cell count reference ranges are not reported, since discordance with absolute values may lead to misinterpretation of CBC data. Current Interpretive Data was last revised on 2017. Monocyte pct 8.4 % [facility] Comment: Interpretive Data Percent cell count reference ranges are not reported, since discordance with absolute values may lead to misinterpretation of CBC data. Current Interpretive Data was last revised on 2017. Eosinophil pct 0.8 % [facility] Comment: Interpretive Data Percent cell count reference ranges are not reported, since discordance with absolute values may lead to misinterpretation of CBC data. Current Interpretive Data was last revised on 2017. Basophil pct 0.5 % [facility] Comment: Interpretive Data Percent cell count reference ranges are not reported, since discordance with absolute values may lead to misinterpretation of CBC data. Current Interpretive Data was last revised on 2017. Blood specimen (specimen) 07/07/2020 10:06 PM COLLECTOR 07/08/2020 1:29 AM COLLECTOR us Vianney Caballero MD LAB BLOOD ORDERABLES Fin al Result Performing Organization Address City/State/[facility] Co de Phone Number [facility] [place] [address] * Type and screen (07/07/2020 10:06 PM COLLECTOR) Triston, indirect Negative [facility] ABO Rh A Positive [facility] Blood specimen (specimen) 07/07/2020 10:06 PM COLLECTOR 07/08/2020 1:54 AM COLLECTOR Narrative [facility] - 07/08/2020 3:29 AM COLLECTOR Has the patient had Daratumumab or Isatuximab in the past 6 months?->Unknown Huang Gusman MD LAB BLOOD BANK TEST ORDERABLES F inal Result Performing Organization Address City/State/[facility] de Phone Number [facility] [place] [address] * (ABNORMAL) CBC with auto differential (07/07/2020 10:06 PM COLLECTOR) [facility] WBC 20.3(H) 3.8 - 9.9 K/cumm [facility] Hgb 9.6(L) 11.9 - 15.5 g/dL [facility] Hct 29.7(L) 35.6 - 45.5 % [facility] Plt 436(H) 150 - 400 K/cumm [facility] MPV 9.6 9.1 - 12.3 fL [facility] RBC 3.16(L) 3.90 - 5.20 M/cumm [facility] MCV 94.0 81.3 - 96.4 fL [facility] MCH 30.4 27.1 - 33.3 pg [facility] MCHC 32.3 32.3 - 35.7 g/dL [facility] RDW CV 11.9 11.1 - 14.9 % [facility] RDW SD 40.9 35.7 - 48.1 fL [facility] NRBC abs 0.00 0.00 - 0.01 K/cumm [facility] Blood specimen (specimen) 07/07/2020 10:06 PM COLLECTOR 07/08/2020 1:29 AM COLLECTOR Obed Martinez MD LAB BLOOD ORDERABLES Fi nal Result Performing Organization Address [facility]/ZIP Co de Phone Number [facility] [place] [address] * (ABNORMAL) Comprehensive metabolic panel (07/07/2020 10:06 PM COLLECTOR) [facility] Sodium 129(L) 135 - 145 mmol/L [facility] Potassium, pl 3.9 3.3 - 4.9 mmol/L [facility] Chloride 93(L) 97 - 110 mmol/L [facility] CO2 30 22 - 32 mmol/L [facility] Anion gap 6 2 - 15 mmol/L [facility] BUN 13 8 - 25 mg/dL [facility] Creatinine 0.70 0.60 - 1.10 mg/dL [facility] Glucose 103 70 - 199 mg/dL [facility] Comment: Interpretive Data Fasting glucose >/= 126 [...] 2017. Calcium 8.9 8.5 - 10.3 mg/dL [facility] Bilirubin, total 0.3 0.1 - 1.2 mg/dL [facility] Protein, pl 7.4 6.5 - 8.5 g/dL [facility] Albumin 3.2(L) 3.5 - 5.0 g/dL [facility] Alk phos 206(H) 40 - 130 Units/L [facility] ALT 25 7 - 45 Units/L [facility] AST 35 10 - 45 Units/L [facility] Blood specimen (specimen) 07/07/2020 10:06 PM COLLECTOR 07/08/2020 1:29 AM COLLECTOR Obed Martinez MD LAB BLOOD ORDERABLES Fi nal Result [facility] [place] [address] * (ABNORMAL) Manual Differential (07/06/2020 11:07 PM COLLECTOR) Differential Manual [facility] Cells [facility]ed 115 [facility] Neutrophil abs 22.1(H) 1.7 - 6.5 K/cumm [facility] Imm gran abs 0.6(H) 0.0 - 0.1 K/cumm [facility] Lymphocyte abs 1.1 0.8 - 3.3 K/cumm [facility] Monocyte abs 0.9(H) 0.2 - 0.8 K/cumm [facility] Neutrophil pct 89.5 % [facility] Comment: Interpretive Data Percent cell count reference ranges are not reported, since discordance with absolute values may lead to misinterpretation of CBC data. Current Interpretive Data was last revised on 2017. Lymphocyte pct 3.5 % [facility] Comment: Interpretive Data Percent cell count reference ranges are not reported, since discordance with absolute values may lead to misinterpretation of CBC data. Current Interpretive Data was last revised on 2017. Monocyte pct 3.5 % [facility] Comment: Interpretive Data Percent cell count reference ranges are not reported, since discordance with absolute values may lead to misinterpretation of CBC data. Current Interpretive Data was last revised on 2017. Metamyelocyte pct 2.6 % [facility] Variant lymph pct 0.9 % [facility] Hypersegmentation Present(A) [facility] Blood specimen (specimen) 07/06/2020 11:07 PM COLLECTOR 07/07/2020 12:01 AM COLLECTOR us Vianney Caballero MD LAB BLOOD ORDERABLES Fin al Result [facility] [place] [address] * (ABNORMAL) CBC with auto differential (07/06/2020 11:07 PM COLLECTOR) WBC 24.7(H) 3.8 - 9.9 K/cumm [facility] Hgb 11.0(L) 11.9 - 15.5 g/dL [facility] Hct 33.6(L) 35.6 - 45.5 % [facility] Plt 448(H) 150 - 400 K/cumm [facility] MPV 9.5 9.1 - 12.3 fL [facility] RBC 3.62(L) 3.90 - 5.20 M/cumm [facility] MCV 92.8 81.3 - 96.4 fL [facility] MCH 30.4 27.1 - 33.3 pg [facility] MCHC 32.7 32.3 - 35.7 g/dL [facility] RDW CV 11.8 11.1 - 14.9 % [facility] RDW SD 40.2 35.7 - 48.1 fL [facility] NRBC abs 0.00 0.00 - 0.01 K/cumm [facility] Blood specimen (specimen) 07/06/2020 11:07 PM COLLECTOR 07/06/2020 11:58 PM COLLECTOR us Obed Martinez MD LAB BLOOD ORDERABLES Fi nal Result [facility] [place] [address] * (ABNORMAL) Comprehensive metabolic panel (07/06/2020 11:07 PM COLLECTOR) Sodium 132(L) 135 - 145 mmol/L [facility] Potassium, pl 4.9 3.3 - 4.9 mmol/L [facility] Chloride 93(L) 97 - 110 mmol/L [facility] CO2 27 22 - 32 mmol/L [facility] Anion gap 12 2 - 15 mmol/L [facility] BUN 15 8 - 25 mg/dL [facility] Creatinine 0.77 0.60 - 1.10 mg/dL [facility] Glucose 133 70 - 199 mg/dL [facility] Comment: Interpretive Data Fasting glucose >/= 126 [...] 2017. Calcium 9.3 8.5 - 10.3 mg/dL [facility] Bilirubin, total 0.3 0.1 - 1.2 mg/dL [facility] Protein, pl 7.5 6.5 - 8.5 g/dL [facility] Albumin 3.3(L) 3.5 - 5.0 g/dL [facility] Alk phos 183(H) 40 - 130 Units/L [facility] ALT 20 7 - 45 Units/L [facility] AST 26 10 - 45 Units/L [facility] Blood specimen (specimen) 07/06/2020 11:07 PM COLLECTOR 07/06/2020 11:58 PM COLLECTOR us Obed Martinez MD LAB BLOOD ORDERABLES Fi nal Result Performing Organization Address [facility] Co de Phone Number [facility] Department [place] [address] * FL Fluoroscopy < 1 Hour (07/06/2020 6:10 PM COLLECTOR) Narrative [facility] - 07/06/2020 6:12 PM COLLECTOR The images from this study are not interpreted by Radiology. ??Please refer to the physician's procedure / OR operative note. us Ethel Amaro MD IMG FLUOROSCOPY PROC EDURES Final Result Performing Organization Address [facility] Co de Phone Number [email or web address] * Mycobacteriology (AFB) culture Tissue Leg, left (07/06/2020 6:07 PM COLLECTOR) Report Final Report: No growth of acid-fast bacilli [facility] Tissue (Leg, left) 07/06/2020 6:07 PM COLLECTOR 07/07/2020 5:32 AM COLLECTOR Narrative [facility] - 09/02/2020 8:15 AM COLLECTOR LEFT TIBIA #3 Testing performed by [facility] ([phone]). us Ethel Amaro MD LAB MICROBIOLOGY - G ENERAL ORDERABLES Final Result Performing Organization Address [facility] Co de Phone Number [facility] Department [place] [address] * Mycology (fungal) culture Tissue Leg, left (07/06/2020 6:07 PM COLLECTOR) Report Final Report: No growth of fungus [facility] Tissue (Leg, left) 07/06/2020 6:07 PM COLLECTOR 07/07/2020 5:32 AM COLLECTOR Narrative [facility] - 08/04/2020 10:11 AM COLLECTOR LEFT TIBIA #3 Testing performed by [facility] ([phone]). us Ethel Amaro MD LAB MICROBIOLOGY - G ENERAL ORDERABLES Final Result [facility] [place] [address] * (ABNORMAL) Tissue aerobic and anaerobic culture and gram stain Tissue Leg, left (07/06/2020 6:07 PMCST) Direct Specimen Exam Stain: Few polymorphonuclear leukocytes seen. Rare Gram Negative Bacilli Rare Gram Positive Cocci [facility] Report Final Report: Few Escherichia coli Few Proteus mirabilis Rare Mixed microorganisms. For susceptibility results, refer to accession number [id number] on the Tissue / Left leg culture from 07/07/2020 (.) [facility] Organism MIXED MICROORGANISMS. [facility] Organism ESCHERICHIA COLI [facility] Organism PROTEUS MIRABILIS [facility] Tissue (Leg, left) 07/06/2020 6:07 PM COLLECTOR 07/07/2020 5:32 AM COLLECTOR Narrative [facility] - 07/10/2020 11:13 AM COLLECTOR LEFT TIBIA #3 Testing performed by [facility] ([phone]) Specimens submitted from normally sterile body sites [...] MICROBIOLOGY - G ENERAL ORDERABLES Final Result [facility] [place] [address] * Mycobacteriology (AFB) culture Tissue Leg, left (07/06/2020 5:59 PM COLLECTOR) Report Final Report: No growth of acid-fast bacilli [facility] Tissue (Leg, left) 07/06/2020 5:59 PM COLLECTOR 07/07/2020 5:37 AM COLLECTOR Narrative [facility] - 09/02/2020 8:15 AM COLLECTOR LEFT TIBIA #2 Testing performed by [facility] ([phone]). Ethel Amaro MD LAB MICROBIOLOGY - G ENERAL ORDERABLES Final Result Performing Organization Address [facility] [place] [address] * Mycology (fungal) culture Tissue Leg, left (07/06/2020 5:59 PM COLLECTOR) Report Final Report: No growth of fungus [facility] Tissue (Leg, left) 07/06/2020 5:59 PM COLLECTOR 07/07/2020 5:37 AM COLLECTOR Narrative [facility] - 08/04/2020 10:10 AM COLLECTOR LEFT TIBIA #2 Testing performed by [facility] ([phone]). Ethel Amaro MD LAB MICROBIOLOGY - G ENERAL ORDERABLES Final Result Performing Organization Address City/[facility] Co de Phone Number [facility] [place] [address] * (ABNORMAL) Tissue aerobic and anaerobic culture and gram stain Tissue Leg, left (07/06/2020 5:59 PMCST) Direct Specimen Exam Stain: Abundant polymorphonuclear leukocytes seen. Few Gram Positive Cocci Few Gram Negative Bacilli [facility] Report Final Report: Moderate Mixed aerobic and anaerobic microorganisms Includes the following: Moderate Proteus mirabilis Moderate Escherichia coli (.) [facility] Organism PROTEUS MIRABILIS [facility] Organism ESCHERICHIA COLI [facility] Organism MIXED AEROBIC AND ANAEROBIC MICROORGANISMS [facility] Tissue (Leg, left) 07/06/2020 5:59 PM COLLECTOR 07/07/2020 5:37 AM COLLECTOR Narrative [facility] - 07/10/2020 11:12 AM COLLECTOR LEFT TIBIA #2 Testing performed by [facility] ([phone]) Specimens submitted from normally sterile body sites [...] MICROBIOLOGY - G ENERAL ORDERABLES Final Result [facility] [place] [address] * Mycobacteriology (AFB) culture Tissue Leg, left (07/06/2020 5:56 PM COLLECTOR) Report Final Report: No growth of acid-fast bacilli [facility] Tissue (Leg, left) 07/06/2020 5:56 PM COLLECTOR 07/07/2020 5:35 AM COLLECTOR Narrative [facility] - 09/02/2020 8:15 AM COLLECTOR LEFT TIBIA #1 Testing performed by [facility] ([phone]). Ethel Amaro MD LAB MICROBIOLOGY - G ENERAL ORDERABLES Final Result Performing Organization Address City/[facility] Co de Phone Number [facility] [place] [address] * Mycology (fungal) culture Tissue Leg, left (07/06/2020 5:56 PM COLLECTOR) Report Final Report: No growth of fungus [facility] Tissue (Leg, left) 07/06/2020 5:56 PM COLLECTOR 07/07/2020 5:35 AM COLLECTOR Narrative [facility] - 08/04/2020 10:10 AM COLLECTOR LEFT TIBIA #1 Testing performed by [facility] ([phone]). Ethel Amaro MD LAB MICROBIOLOGY - G ENERAL ORDERABLES Final Result Performing Organization Address City/[facility] Co de Phone Number [facility] [place] [address] * (ABNORMAL) Tissue aerobic and anaerobic culture and gram stain Tissue Leg, left (07/06/2020 5:56 PMCST) Direct Specimen Exam Stain: Few polymorphonuclear leukocytes seen. Rare Gram Positive Cocci Rare Gram Negative Bacilli [facility] Report Final Report: Few Mixed microorganisms. Includes the following: Few Escherichia coli Few Proteus mirabilis For susceptibility results, refer to accession number [id number] on the Tissue / Left leg culture from 07/07/2020 (.) [facility] Organism MIXED MICROORGANISMS. [facility] Organism ESCHERICHIA COLI [facility] Organism PROTEUS MIRABILIS [facility] Tissue (Leg, left) 07/06/2020 5:56 PM COLLECTOR 07/07/2020 5:35 AM COLLECTOR Narrative [facility] - 07/10/2020 11:13 AM COLLECTOR LEFT TIBIA #1 Testing performed by [facility] ([phone]) Specimens submitted from normally sterile body sites [...] MICROBIOLOGY - G ENERAL ORDERABLES Final Result [facility] [place] [address] * CT Tibia Fibula Left WO Contrast (07/06/2020 6:42 AM COLLECTOR) Anatomical Region Laterality Modality Lower Leg Left Computed Tomogra phy 07/06/2020 7:57 AM COLLECTOR Impressions 07/06/2020 9:02 AM COLLECTOR Periprosthetic fracture of the left proximal tibia [...] Lavell Lawson M.D. Narrative 07/06/2020 9:02 AM COLLECTOR EXAMINATION: CT LOWER LEG CALF LEFT WO [...] * Urine culture Urine (07/05/2020 11:19 PM COLLECTOR) Report Final Report: Less than 100,000 colonies/mL (clinically insignificant growth based on current clinical standards) [facility] Organism (CLINICALLY INSIGNIFICANT GROWTH [facility] Urine 07/05/2020 11:1 9 PM COLLECTOR 07/06/2020 1:48 AM COLLECTOR Narrative [facility] - 07/07/2020 7:33 AM COLLECTOR Urine culture reflexed based upon urinalysis results. Testing performed by [facility] ([phone]) Vianney Caballero MD LAB MICROBIOLOGY - [facility] ORDERABLES Final Result [facility] [place] [address] * (ABNORMAL) Urinalysis, microscopic only (07/05/2020 11:19 PM COLLECTOR) WBC, ur >50(A) 0 - 5 /HPF [facility] RBC, ur 21-50(A) 0 - 2 /HPF [facility] Epithelial cells, squamous, ur 1-5 0 - 5 /HPF [facility] Bacteria, ur Trace(A) [facility] Yeast, ur 2+(A) [facility] Mucous, ur Present(A) [facility] Amorphous crystals, ur Trace(A) [facility] Culture Reflex Comment Reflex to urine culture will be performed. [facility] Urine 07/05/2020 11:1 9 PM COLLECTOR 07/05/2020 11:43 PM COLLECTOR us Vianney Caballero MD LAB URINE ORDERABLES Fin al Result [facility] [place] [address] * (ABNORMAL) Urinalysis reflex to microscopic and culture Urine (07/05/2020 11:19 PM COLLECTOR) Color, ur Yellow Yellow [facility] Clarity, ur Cloudy(A) Clear [facility] Specific gravity, ur 1.011 1.010 - 1.025 [facility] pH, urine 6 [facility] Protein, ur ql Negative Negative [facility] Glucose, ur ql Negative Negative [facility] Ketones, ur Trace Negative [facility] Bilirubin, ur Negative Negative [facility] Blood, ur Negative Negative [facility] Urobilinogen, ur <2.0 <2.0 mg/dL [facility] Nitrite, ur Negative Negative [facility] Leukocyte esterase, ur 3+(A) Negative [facility] UA reflex comment Reflex to microscopic UA will be performed. [facility] Urine 07/05/2020 11:1 9 PM COLLECTOR 07/05/2020 11:43 PM COLLECTOR Narrative [facility] - 07/05/2020 11:56 PM COLLECTOR ?? Urine pH is affected by diet, medications, systemic acid-base disturbances, and renal tubular function. ??pH may affect urinary stone formation. ??For example, urine pH below 6.0 may help reduce the tendency for calcium phosphate stones and pH greater than 6.0 may reduce the tendency for uric acid stone formation. Source: [facility] [employer]. Last revised 08-05-2017 Vianney Caballero MD LAB MICROBIOLOGY - GENER AL ORDERABLES Final Result Performing Organization Address [facility] de Phone Number [facility] [place] [employer] [place] [address] * Sodium, urine, random (07/05/2020 11:19 PM COLLECTOR) Sodium, ur <20 mmol/L [facility] Comment: Repeated and Verified Interpretive Data No reference range established. Current interpretive data was last revised 2018. Urine 07/05/2020 11:1 9 PM COLLECTOR 07/05/2020 11:46 PM COLLECTOR Errol Villareal MD LAB URINE ORDERABLES Final Re sult Performing Organization Address [facility] de Phone Number [facility] [place] [employer] [place] [address] * Osmolality, urine (07/05/2020 11:19 PM COLLECTOR) Osmo, ur 242 mOsm/kg [facility] Urine 07/05/2020 11:1 9 PM COLLECTOR 07/05/2020 11:46 PM COLLECTOR Errol Villareal MD LAB URINE ORDERABLES Final Re sult Performing Organization Address [facility] [place] [address] * Cortisol (07/05/2020 9:22 PM COLLECTOR) Cortisol 17.9 3.7 - 19.4 mcg/dL [facility] Comment: Interpretive Data Normal Range: ??3.7 - 19.4 mcg/dL; ??Evening: ??Half of morning value. ?? This analyte undergoes marked diurnal variation. ??Ranges indicated apply to morning specimens. ?? Current interpretive data was last revised 2013. Blood specimen (specimen) 07/05/2020 9:22 PM COLLECTOR 07/05/2020 11:20 PM COLLECTOR Errol Villareal MD LAB BLOOD ORDERABLES Final Re sult Performing Organization Address City/[facility] Co de Phone Number [facility] [place] [employer] [place] [address] * TSH reflex to free T4 (07/05/2020 9:22 PM COLLECTOR) TSH 1.06 0.30 - 4.20 mcIUnit/mL [facility] Blood specimen (specimen) 07/05/2020 9:22 PM COLLECTOR 07/05/2020 11:20 PM COLLECTOR Errol Villareal MD LAB BLOOD ORDERABLES Final Re sult Performing Organization Address [facility] Co de Phone Number [facility] [place] [employer] [place] [address] * (ABNORMAL) Osmolality, blood (07/05/2020 9:22 PM COLLECTOR) Osmo 268(L) 275 - 300 mOsm/kg [facility] Blood specimen (specimen) 07/05/2020 9:22 PM COLLECTOR 07/05/2020 11:20 PM COLLECTOR Errol Villareal MD LAB BLOOD ORDERABLES Final Re sult Performing Organization Address [facility] Co de Phone Number [facility] [place] [employer] [place] [address] * Blood culture Blood (07/05/2020 9:22 PM COLLECTOR) Report Final Report: No growth [facility] Blood specimen (specimen) 07/05/2020 9:22 PM COLLECTOR 07/05/2020 11:41 PM COLLECTOR Narrative [facility] - 07/10/2020 7:01 AM COLLECTOR 1. ?Blood cultures are incubated for 4 [...] organism identification may be performed using the [employer] Gram-Positive Blood Culture Assay. This assay detects microbial DNA in positive blood culture broth via hybridization of target DNA to capture oligonucleotides on a microarray. This assay has been cleared by the [place] Food and Drug Administration and its performance characteristics have been verified by the [facility]. 5. ?For questions about this culture, contact the Microbiology Laboratory at [phone]. Interpretive data was last revised on 2019. Vianney Caballero MD LAB MICROBIOLOGY - [facility] ORDERABLES Final Result [facility] [place] [address] * (ABNORMAL) Blood culture Blood (07/05/2020 9:22 PM COLLECTOR) Direct Specimen Exam Molecular Analysis: Staphylococcus epidermidis detected by the [employer] Blood Culture Nucleic Acid Test. This test does not exclude the possibility of a mixed bacterial infection. Notification of: Staphylococcus epidermidis called to and read back by: Dr. Bashir Peter, on 07/06/2020 20:04:56 by: JINNY Collazo [facility] Direct Specimen Exam Stain: Gram Positive Cocci in clusters Time to culture positivity (aerobic media): 16.5 hours Notification of: Gram Positive Cocci in clusters called to and read back by: Dr. Vianney Prieto, on 07/06/2020 17:11:54 by: JINNY Collazo [facility] Report Final Report: Staphylococcus epidermidis Single blood culture positive for this microorganism. ??Isolate is a possible contaminant. If a similar isolate is recovered from a second blood culture collected within 3 days of this culture, both will be evaluated and, if determined to be the same species, antimicrobial susceptibility testing will be performed. (.) [facility] Organism STAPHYLOCOCCUS EPIDERMIDIS [facility] Blood specimen (specimen) 07/05/2020 9:22 PM COLLECTOR 07/05/2020 11:41 PM COLLECTOR Narrative [facility] - 07/10/2020 7:10 AM COLLECTOR 1. ?Blood cultures are incubated for 4 [...] organism identification may be performed using the [employer] Gram-Positive Blood Culture Assay. This assay detects microbial DNA in positive blood culture broth via hybridization of target DNA to capture oligonucleotides on a microarray. This assay has been cleared by the [place] Food and Drug Administration and its performance characteristics have been verified by the [facility]. 5. ?For questions about this culture, contact the Microbiology Laboratory at [phone]. Interpretive data was last revised on 2019. Vianney Caballero MD LAB MICROBIOLOGY - GENER AL ORDERABLES Final Result Performing Organization Address [facility] [place] [address] * Type and screen (07/05/2020 9:22 PM COLLECTOR) ABO Rh A Positive [facility] Triston, indirect Negative [facility] Blood specimen (specimen) 07/05/2020 9:22 PM COLLECTOR 07/05/2020 11:27 PM COLLECTOR Narrative [facility] - 07/06/2020 12:51 AM COLLECTOR Has the patient had Daratumumab or Isatuximab in the past 6 months?->Unknown Vianney Caballero MD LAB BLOOD BANK TEST ORDE RABLES Final Result Performing Organization Address [facility] de Phone Number [facility] [place] [address] * aPTT (07/05/2020 9:22 PM COLLECTOR) [facility] aPTT 32 25 - 37 sec [facility] Comment: Interpretive data Heparin therapeutic range: 60-90 seconds Range based on correlation with therapeutic heparin activity range of 0.3-0.7 units/ml. Current interpretive data was last revised on 2019. Blood specimen (specimen) 07/05/2020 9:22 PM COLLECTOR 07/05/2020 11:20 PM COLLECTOR Vianney Caballero MD LAB BLOOD ORDERABLES Fin al Result Performing Organization Address [facility] Co de Phone Number [facility] [place] [address] * ECG 12 lead (07/05/2020 7:29 PM COLLECTOR) Pathologist [facility] Ventricular Rate EKG/Min 91 BPM [facility] Atrial Rate 91 BPM [facility] DC-Interval (MSEC) 168 ms [facility] QRS-Interval (MSEC) 86 ms [facility] QT-Interval (MSEC) 390 ms [facility] QTc 479 ms [facility] P [place] 31 degrees [facility] R [place] -21 degrees [facility] T [place] 40 degrees [facility] Diagnosis Normal sinus rhythm Voltage criteria for left ventricular hypertrophy Abnormal ECG No previous ECGs available This ECG was personally interpreted by the attending physician indicated below Confirmed by ANNALISA/JOE WATSON ([id number]) on 07/10/2020 2:27:32 PM [facility] 07/05/2020 7:29 PM COLLECTOR 07/10/2020 2:27 PM COLLECTOR Vianney Caballero MD ECG ORDERABLES Final Re sult Performing Organization Address City/[facility]/ZIP Co de Phone Number [facility] * XR Outside Reference (07/05/2020 6:15 PM COLLECTOR) Impressions [facility] - 07/05/2020 6:15 PM COLLECTOR These images are for Reference purposes only and have not been reviewed by [facility] [facility]. ??There will be no report generated by a [facility] Radiologist. Narrative RAD_PACS_[facility] - 07/05/2020 6:15 PM COLLECTOR EXAMINATION: ??Images For Reference Purposes Only Vianney Caballero MD IMG XR PROCEDURES Final Result [facility] * Hemoglobin A1c (07/05/2020 6:13 PM COLLECTOR) Hgb A1C 5.3 4.0 - 5.6 % [facility] Estimated Average Glucose 105 mg/dL [facility] Comment: The ADA recommends reporting an estimated Average Glucose (eAG) with all Hemoglobin A1c results using the equation derived from a study of 507 normal and diabetic adults. ??Minority populations were underrepresented and children were not included. ?? (Diabetes Care 31:4421-4160, 2008). ??The eAG is not equivalent to a fasting glucose. Blood specimen (specimen) 07/05/2020 6:13 PM COLLECTOR 07/05/2020 6:57 PM COLLECTOR us Vianney Caballero MD LAB BLOOD ORDERABLES Fin al Result [facility] [place] [address] * (ABNORMAL) Differential, auto (07/05/2020 6:13 PM COLLECTOR) Neutrophil abs 19.3(H) 1.7 - 6.5 K/cumm [facility] Imm gran abs 1.6(H) 0.0 - 0.1 K/cumm [facility] Lymphocyte abs 1.5 0.8 - 3.3 K/cumm [facility] Monocyte abs 1.4(H) 0.2 - 0.8 K/cumm [facility] Eosinophil abs 0.2 0.0 - 0.5 K/cumm [facility] Basophil abs 0.1 0.0 - 0.1 K/cumm [facility] Neutrophil pct 80.3 % [facility] Comment: Interpretive Data Percent cell count reference ranges are not reported, since discordance with absolute values may lead to misinterpretation of CBC data. Current Interpretive Data was last revised on 2017. Imm gran pct 6.5 % [facility] Comment: Interpretive Data Percent cell count reference ranges are not reported, since discordance with absolute values may lead to misinterpretation of CBC data. Current Interpretive Data was last revised on 2017. Lymphocyte pct 6.2 % [facility] Comment: Interpretive Data Percent cell count reference ranges are not reported, since discordance with absolute values may lead to misinterpretation of CBC data. Current Interpretive Data was last revised on 2017. Monocyte pct 5.9 % [facility] Comment: Interpretive Data Percent cell count reference ranges are not reported, since discordance with absolute values may lead to misinterpretation of CBC data. Current Interpretive Data was last revised on 2017. Eosinophil pct 0.7 % [facility] Comment: Interpretive Data Percent cell count reference ranges are not reported, since discordance with absolute values may lead to misinterpretation of CBC data. Current Interpretive Data was last revised on 2017. Basophil pct 0.4 % [facility] Comment: Interpretive Data Percent cell count reference ranges are not reported, since discordance with absolute values may lead to misinterpretation of CBC data. Current Interpretive Data was last revised on 2017. Blood specimen (specimen) 07/05/2020 6:13 PM COLLECTOR 07/05/2020 6:54 PM COLLECTOR Vianney Caballero MD LAB BLOOD ORDERABLES Fin al Result Performing Organization Address [facility] de Phone Number [facility] [place] [employer] [place] [address] * (ABNORMAL) D-dimer, quantitative (07/05/2020 6:13 PM COLLECTOR) D-Dimer 1,324(H) <=499 ng/mL [facility] Comment: Interpretive data FDA approved the D-dimer, [...] 2019. Blood specimen (specimen) 07/05/2020 6:13 PM COLLECTOR 07/05/2020 6:58 PM COLLECTOR Vianney Caballero MD LAB BLOOD ORDERABLES Fin al Result Performing Organization Address [facility] de Phone Number [facility] Department [place] [employer] [place] [address] * (ABNORMAL) Protime-INR (07/05/2020 6:13 PM COLLECTOR) Pathologist [facility] PT 14.6(H) 8.6 - 13.0 sec [facility] INR 1.3(H) 0.8 - 1.2 [facility] Comment: Interpretive data Oral anticoagulant therapeutic ranges: Venous thromboembolism prophylaxis or treatment: 2.0-3.0 CARDIOLOGY Standard range: 2.0-3.0 High-intensity range: 2.5-3.5 Refer to indication-specific guidelines for appropriate target ranges for prosthetic heart valve replacement. Current interpretive data was last revised on 2019. Blood specimen (specimen) 07/05/2020 6:13 PM COLLECTOR 07/05/2020 6:58 PM COLLECTOR us Vianney Caballero MD LAB BLOOD ORDERABLES Fin al Result [facility] Department [place] [address] * (ABNORMAL) CBC with auto differential (07/05/2020 6:13 PM COLLECTOR) Pathologist [facility] WBC 24.0(H) 3.8 - 9.9 K/cumm [facility] Hgb 11.1(L) 11.9 - 15.5 g/dL [facility] Hct 32.5(L) 35.6 - 45.5 % [facility] Plt 420(H) 150 - 400 K/cumm [facility] MPV 9.6 9.1 - 12.3 fL [facility] RBC 3.57(L) 3.90 - 5.20 M/cumm [facility] MCV 91.0 81.3 - 96.4 fL [facility] MCH 31.1 27.1 - 33.3 pg [facility] MCHC 34.2 32.3 - 35.7 g/dL [facility] RDW CV 11.8 11.1 - 14.9 % [facility] RDW SD 39.4 35.7 - 48.1 fL [facility] NRBC abs 0.00 0.00 - 0.01 K/cumm [facility] Blood specimen (specimen) 07/05/2020 6:13 PM COLLECTOR 07/05/2020 6:54 PM COLLECTOR Vianney Caballero MD LAB BLOOD ORDERABLES Fin al Result Performing Organization Address City/[facility] Co de Phone Number [facility] [place] [address] * (ABNORMAL) CRP (acute phase) (07/05/2020 6:13 PM COLLECTOR) CRP 236.6(H) <=10.0 mg/L [facility] Comment:Repeated on Dilution Blood specimen (specimen) 07/05/2020 6:13 PM COLLECTOR 07/05/2020 6:54 PM COLLECTOR Vianney Caballero MD LAB BLOOD ORDERABLES Fin al Result Performing Organization Address [facility] Co de Phone Number [facility] Department [place] [address] * (ABNORMAL) Erythrocyte sedimentation rate (07/05/2020 6:13 PM COLLECTOR) Erythrocyte sedimentation rate 100(H) 1 - 30 mm/hr [facility] Blood specimen (specimen) 07/05/2020 6:13 PM COLLECTOR 07/05/2020 6:54 PM COLLECTOR Vianney Caballero MD LAB BLOOD ORDERABLES Fin al Result Performing Organization Address City/[facility] Co de Phone Number [facility] [place] [address] * Lactate (07/05/2020 6:13 PM COLLECTOR) Lactate 1.0 0.7 - 2.0 mmol/L [facility] Blood specimen (specimen) 07/05/2020 6:13 PM COLLECTOR 07/05/2020 6:54 PM COLLECTOR Vianney Caballero MD LAB BLOOD ORDERABLES Fin al Result Performing Organization Address City/[facility] Co de Phone Number [facility] [place] [address] * Phosphorus (07/05/2020 6:13 PM COLLECTOR) Phosphorus, pl 3.9 2.3 - 4.5 mg/dL [facility] Blood specimen (specimen) 07/05/2020 6:13 PM COLLECTOR 07/05/2020 6:54 PM COLLECTOR Vianney Caballero MD LAB BLOOD ORDERABLES Fin al Result Performing Organization Address [facility] de Phone Number [facility] [place] [address] * Magnesium (07/05/2020 6:13 PM COLLECTOR) Pathologist [facility] Magnesium 1.8 1.4 - 2.5 mg/dL [facility] Blood specimen (specimen) 07/05/2020 6:13 PM COLLECTOR 07/05/2020 6:54 PM COLLECTOR Vianney Caballero MD LAB BLOOD ORDERABLES Fin al Result Performing Organization Address [facility] Co de Phone Number [facility] [place] [address] * (ABNORMAL) Hepatic function panel (07/05/2020 6:13 PM COLLECTOR) Bilirubin, total 0.3 0.1 - 1.2 mg/dL [facility] Bilirubin, direct <0.2 0.1 - 0.3 mg/dL [facility] Protein, pl 7.4 6.5 - 8.5 g/dL [facility] Albumin 3.4(L) 3.5 - 5.0 g/dL [facility] Alk phos 199(H) 40 - 130 Units/L [facility] ALT 26 7 - 45 Units/L [facility] AST 34 10 - 45 Units/L [facility] Blood specimen (specimen) 07/05/2020 6:13 PM COLLECTOR 07/05/2020 6:54 PM COLLECTOR us Vianney Caballero MD LAB BLOOD ORDERABLES Fin al Result [facility] Department [place] [address] * (ABNORMAL) Basic metabolic panel (07/05/2020 6:13 PM COLLECTOR) Pathologist [facility] Sodium 126(L) 135 - 145 mmol/L [facility] Potassium, pl 4.3 3.3 - 4.9 mmol/L [facility] Chloride 90(L) 97 - 110 mmol/L [facility] CO2 29 22 - 32 mmol/L [facility] Anion gap 7 2 - 15 mmol/L [facility] BUN 16 8 - 25 mg/dL [facility] Creatinine 1.02 0.60 - 1.10 mg/dL [facility] Glucose 101 70 - 199 mg/dL [facility] Comment: Interpretive Data Fasting glucose >/= 126 [...] 2017. Calcium 9.2 8.5 - 10.3 mg/dL [facility] Blood specimen (specimen) 07/05/2020 6:13 PM COLLECTOR 07/05/2020 6:54 PM COLLECTOR us Vianney Caballero MD LAB BLOOD ORDERABLES Fin al Result Performing Organization Address City/[facility]/ZIP Co de Phone Number [facility] [place] [address] * XR Chest 1 View (07/05/2020 5:22 PM COLLECTOR) Anatomical Region Laterality Modality Body, Chest N/A Computed Radiogr aphy 07/06/2020 10:3 0 AM COLLECTOR Impressions 07/06/2020 12:10 PM COLLECTOR Comparison chest radiograph 06/30/2019. The lungs are [...] Pura Rosas M.D. Narrative 07/06/2020 12:10 PM COLLECTOR EXAMINATION: 1 view chest radiograph Procedure Note [...] it. Electronically signed by: Pura Rosas M.D. 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 at [facility] in [place] 06/21/2020 us Historical Provider LAB MICROBIOLOGY - GENERA L ORDERABLES Final Result documented in this encounter Visit Diagnoses Diagnosis Left lower extremity infection- Primary Unspecified infectious and parasitic diseases Diagnosis unknown Left leg wound Unspecified disorder of skin and subcutaneous tissue COVID-19 Moderate essential hypertension Open displaced comminuted fracture of shaft of left tibia, type IIIA, IIIB, or IIIC Chronic respiratory failure (HCC) Chronic respiratory failure Hyponatremia Hyposmolality and/or hyponatremia Leg skin lesion, left Unspecified disorder of skin and subcutaneous tissue Leg skin lesion, left Unspecified disorder of [...] until manually unheld Given 07/09/2020 3:46 AM COLLECTOR 1,000 mg Given 07/08/2020 5:35 PM COLLECTOR 1,000 mg Given 07/08/2020 9:56 AM COLLECTOR 1,000 mg albuterol HFA (PROVENTIL HFA,VENTOLIN HFA,PROAIR HFA) 90 mcg/actuation inhaler 2 puff 2 puff, inhalation, Every 4 hours 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), shortness of breath, Starting on Wed07/05/20 at 1805, Indications: Acute Asthma AttackIndications:Acute Asthma Attack Given 07/08/2020 10:29 AM COLLECTOR 2 puf fs amLODIPine (NORVASC) tablet 10 mg 10 mg, oral, Daily, First dose on Wed07/05/20 at 1830, Indications: hypertensionIndications:hypertension Given 07/12/2020 8:59 AM COLLECTOR 10 mg Given 07/11/2020 8:21 AM COLLECTOR 10 mg Given 07/10/2020 9:00 AM COLLECTOR 10 mg amoxicillin-clavulanate (AUGMENTIN) 875-125 mg per tablet 875 mg of amoxicillin 875 mg of amoxicillin, oral, 2 times daily, First dose on Wed07/12/20 at 1000, For 28 doses, Indications: Skin/Soft Tissue InfectionIndications:Skin/Soft Tissue Infection Given 07/12/2020 11:41 AM COLLECTOR 875 mg of amoxicillin atorvastatin (LIPITOR) tablet 10 mg 10 mg, oral, Nightly, First dose on Wed07/05/20 at 2100 Given 07/11/2020 5:20 PM COLLECTOR 10 mg Given 07/10/2020 6:03 PM COLLECTOR 10 mg Given 07/09/2020 5:31 PM COLLECTOR 10 mg baclofen (LIORESAL) tablet 2.5 mg 2.5 mg, oral, 3 times daily with meals, First dose (after last modification) on Wed07/07/20 at 0800 Given 07/12/2020 11:42 AM COLLECTOR 2.5 mg Given 07/11/2020 9:32 PM COLLECTOR 2.5 mg Given 07/11/2020 12:09 PM COLLECTOR 2.5 mg bisacodyl EC (DULCOLAX EC) tablet 10 mg 10 mg, oral, Nightly, First dose on Wed07/10/20 at 2100, Do not crush, chew, cut, dissolve, open or otherwise manipulate tablet/capsule., Indications: constipationIndications:constipation Given 07/11/2020 8:22 PM COLLECTOR 10 mg Given 07/10/2020 8:45 PM COLLECTOR 10 mg busPIRone (BUSPAR) tablet 5 mg 5 mg, oral, Daily, First dose on Wed07/05/20 at 1830 Given 07/12/2020 9:00 AM COLLECTOR 5 mg Given 07/11/2020 8:21 AM COLLECTOR 5 mg Given 07/10/2020 9:01 AM COLLECTOR 5 mg docusate sodium (COLACE) capsule 200 mg 200 mg, oral, Daily, First dose (after last modification) on Mercedes 07/11/20 at 0900, Indications: constipationIndications:constipation Given 07/12/2020 9:00 AM COLLECTOR 200 mg Given 07/11/2020 8:21 AM COLLECTOR 200 mg enoxaparin (LOVENOX) syringe 40 mg 40 mg, subcutaneous, Daily (for enoxaparin), First dose (after last modification) on 07/06/20 at 2130, Indications: Deep Vein Thrombosis PreventionIndications:Deep Vein Thrombosis Prevention Given 07/11/2020 8:22 PM COLLECTOR 40 mg Right Lower Abdomen Given 07/07/2020 8:46 PM COLLECTOR 40 mg Le ft Lower Abdomen Given 07/06/2020 9:17 PM COLLECTOR 40 mg Le ft Lower Abdomen fluticasone propionate (FLONASE) 50 mcg/actuation nasal spray 2 spray 2 spray, each nostril, Daily, First dose on Wed07/05/20 at 1830 Given 07/12/2020 9:40 AM COLLECTOR 2 sprays Given 07/10/2020 9:00 AM COLLECTOR 2 sprays Given 07/09/2020 8:14 AM COLLECTOR 2 sprays furosemide (LASIX) tablet 40 mg 40 mg, oral, Daily, First dose on Wed07/11/20 at 2015 Given 07/12/2020 9:00 AM COLLECTOR 40 mg Given 07/11/2020 8:22 PM COLLECTOR 40 mg gabapentin (NEURONTIN) capsule 400 mg 400 mg, oral, Every 8 hours, First dose on Wed07/05/20 at 1830 Given 07/12/2020 11:41 AM COLLECTOR 400 mg Given 07/12/2020 2:34 AM COLLECTOR 400 mg Given 07/11/2020 5:21 PM COLLECTOR 400 mg LORazepam (ATIVAN) tablet 0.5 mg 0.5 mg, oral, Every 6 hours PRN, anxiety, Starting on Wed07/11/20 at 1145 Given 07/12/2020 9:07 AM COLLECTOR 0.5 mg Given 07/11/2020 11:54 PM COLLECTOR 0.5 mg Given 07/11/2020 5:21 PM COLLECTOR 0.5 mg losartan (COZAAR) tablet 50 mg 50 mg, oral, Daily, First dose on Wed07/05/20 at 1830 Given 07/12/2020 9:00 AM COLLECTOR 50 mg Given 07/11/2020 8:22 AM COLLECTOR 50 mg Given 07/10/2020 9:01 AM COLLECTOR 50 mg metoprolol tartrate (LOPRESSOR) immediate release tablet 25 mg 25 mg, oral, Every 6 hours scheduled, First dose on Wed07/05/20 at 1830 Given 07/12/2020 11:44 AM COLLECTOR 25 mg Given 07/12/2020 5:06 AM COLLECTOR 25 mg Given 07/11/2020 11:14 PM COLLECTOR 25 mg morphine injection 4 mg 4 mg, intravenous, Administer over 4 Minutes, Every 4 hours PRN, 2nd line for pain, Starting on Wed07/09/20 at 0641 Given 07/12/2020 11:50 AM COLLECTOR 4 mg Given 07/12/2020 6:09 AM COLLECTOR 4 mg Given 07/11/2020 11:09 PM COLLECTOR 4 mg ondansetron ODT (ZOFRAN-ODT) disintegrating tablet 8 mg 8 mg, oral, Every 8 hours PRN, nausea, vomiting, Starting on Mercedes 07/11/20 at 1145 oxyCODONE (ROXICODONE) tablet 10 mg 10 mg, oral, Every 4 hours PRN, 1st line for pain, Starting on Tu07/09/20 at 1049, Indications: PainIndications:Pain Given 07/12/2020 9:07 AM COLLECTOR 10 mg Given 07/12/2020 5:21 AM COLLECTOR 10 mg Given 07/11/2020 9:32 PM COLLECTOR [address] (PROTONIX) extended release tablet 40 mg 40 mg, oral, Daily, First dose on Wed07/05/20 at 1830, Do not crush, chew, cut, dissolve, open or otherwise manipulate tablet/capsule., Indications: Stress Ulcer ProphylaxisIndications:Stress Ulcer Prophylaxis Given 07/12/2020 9:00 AM COLLECTOR 40 mg Given 07/11/2020 8:22 AM COLLECTOR 40 mg Given 07/10/2020 9:00 AM COLLECTOR 40 mg ramelteon (ROZEREM) tablet 8 mg 8 mg, oral, Nightly, First dose on Wed07/10/20 at 2100, Indications: Sleep-Onset InsomniaIndications:Sleep-Onset Insomnia Given 07/11/2020 8:22 PM COLLECTOR 8 m g Given 07/10/2020 8:45 PM COLLECTOR 8 mg sodium chloride 0.9 % irrigation As needed, Starting on 07/08/20 at 1210, Intra-Op Given 07/08/2020 12:31 PM COLLECTOR 3,000 mL Surgical Site Given 07/08/2020 12:10 PM COLLECTOR 1,000 mL S urgical Site sodium chloride 0.9% flush 0.5-20 mL 0.5-20 mL, intra-catheter, Every 8 hours scheduled, First dose on Wed07/05/20 at 1645, Flush volume based on line type and size. Given 07/12/2020 5:06 AM COLLECTOR 10 mL Given 07/11/2020 8:30 PM COLLECTOR 10 mL Given 07/11/2020 12:10 PM COLLECTOR 10 mL sodium chloride 0.9% flush 0.5-20 mL 0.5-20 mL, intra-catheter, As needed, line care, Starting on Wed07/05/20 at 1609, Flush volume based on line type and size. Flush before and after each use. Given 07/08/2020 3:10 AM COLLECTOR 10 mL Given 07/08/2020 2:18 AM COLLECTOR 10 mL Given 07/07/2020 11:22 PM COLLECTOR 10 mL sodium chloride 0.9% flush 5-10 mL 5-10 mL, intra-catheter, Every 8 hours scheduled, First dose on Wed07/07/20 at 1400, Flush volume based on line type, size, and protocol. Given 07/11/2020 11:09 PM COLLECTOR 10 mL Given 07/11/2020 12:10 PM COLLECTOR 10 mL Given 07/11/2020 6:23 AM COLLECTOR 10 mL sodium chloride 0.9% flush 5-10 mL 5-10 mL, intra-catheter, As needed, line care, with each use, Starting on Wed07/07/20 at 1038, Flush volume based on line type, size, and protocol. spironolactone (ALDACTONE) tablet 25 mg 25 mg, oral, Daily, First dose on Wed07/05/20 at 1830, On hold since Wed07/12/2020 at 0919 until manually unheld Given 07/12/2020 9:00 AM COLLECTOR 25 mg Given 07/11/2020 8:21 AM COLLECTOR 25 mg Given 07/06/2020 9:02 AM COLLECTOR 25 mg sterile water irrigation As needed, Starting on Wed07/08/20 at 1210, Intra-Op Given 07/08/2020 12:10 PM COLLECTOR 500 mL Other (Comment) triamcinolone (KENALOG) 0.1 % cream topical, 2 times daily, First dose on Wed07/11/20 at 2100, Apply to affected area: rash Given 07/12/2020 11:41 AM COLLECTOR documented in this encounter Discontinued Medications Medication [...] Recently Administered Medications Times are shown in COLLECTOR. Scheduled Medication Order 07/10/2020 07/11/2020 07/12/2020 acetaminophen (TYLENOL) tablet 1,000 mg 1,000 mg, oral, Every 8 hours, First dose on 07/06/20 at 0815, On hold since 07/09/2020 at 0639 until manually unheld 0200 (Dose [...] 10 mg, oral, Daily, First dose on 07/05/20 at 1830, Indications: hypertension 0900 (Given - Provider: Genie Elliott RN) 0821 (Given - Provider: Breanna Rodriguez RN) 0859 (Given - Provider: Kenzie Salazar RN) amoxicillin-clavulanate (AUGMENTIN) 875-125 mg per tablet 875 mg of amoxicillin 875 mg of amoxicillin, oral, 2 times daily, First dose on Wed07/12/20 at 1000, For 28 doses, Indications: Skin/Soft Tissue Infection 1141 (Given - Provider: Kenzie Salazar RN) atorvastatin (LIPITOR) tablet 10 mg 10 mg, oral, Nightly, First dose on Wed07/05/20 at 2100 1803 (Given - Provider: Genie Elliott RN) 1720 (Given - Provider: Breanna Rodriguez RN) [...] Elliott RN) 0821 (Given - Provider: Breanna R. Altmeyer, RN) 0900 (Given - Provider: Kenzie Salazar RN) cefepime (MAXIPIME) 1,000 mg/10 mL in sterile water (premix) 1,000 mg (CANCELED) 1,000 mg, intravenous, at 20 mL/hr, Administer over 30 Minutes, Every 8 hours, First dose on Wed07/06/20 at 1600, Indications: Bone/Joint Infection, Skin/Soft Tissue Infection 0205 (New Bag - Provider: Jesse Waterman RN)0900 (New Bag - Provider: Genie Elliott, DARCI)1805 (New Bag - Provider: Genie Elliott RN) 0240 (New Bag - Provider: Jesse Waterman RN)1019 (New Bag - Provider: Breanna Rodriguez RN)1826 (New Bag - Provider: Nancie Isabel RN) 0234 (New Bag - Provider: Qi Vidal, DARCI)0908 (New Bag - Provider: Kenzie Salazar RN) diphenhydrAMINE (BENADRYL) tab/cap 25 mg (COMPLETED) 25 mg, oral, Once, On Mercedes 07/11/20 at 2015, For 1 dose 2021 (Given [...] Rodriguez, DARCI) 0900 (Given - Provider: Kenzie Salazar RN) enoxaparin (LOVENOX) syringe 40 mg 40 mg, subcutaneous, Daily (for enoxaparin), First dose (after last modification) on Wed07/06/20 at 2130, Indications: Deep Vein Thrombosis Prevention [...] 40 mg, oral, Daily, First dose on Mercedes 07/11/20 at 2014 2021 (Given - Provider: Santy Brandt, DARCI) 0900 (Given - Provider: Kenzie Salazar, DARCI) gabapentin (NEURONTIN) capsule 400 mg 400 mg, oral, Every 8 hours, First dose on Wed07/05/20 at 1830 0206 (Given - Provider: Jesse Waterman, DARCI)0900 (Given - Provider: Genie Elliott, DARCI)1803 (Given - Provider: Genie Elliott, DARCI) 0240 (Given - Provider: Jesse Waterman RN)1020 (Given - Provider: Breanna Rodriguez, DARCI)1721 (Given - Provider: Breanna Rodriguez RN) 0234 (Given - Provider: Qi Vidal RN)1141 (Given - Provider: Kenzie Salazar, DARCI) HYDROmorphone (DILAUDID) injection 0.5 mg (COMPLETED) 0.5 mg, intravenous, Administer over 2 Minutes, Once, On Mercedes 07/11/20 at 2044, For 1 dose 2024 (Given - Provider: Santy Brandt RN) losartan (COZAAR) tablet 50 mg 50 mg, oral, Daily, First dose on Wed07/05/20 at 1830 0901 (Given - Provider: Genie Elliott RN) 0822 (Given - Provider: Breanna Rodriguez RN) 0900 (Given - Provider: Kenzie Salazar, DARCI) metoprolol tartrate (LOPRESSOR) immediate release tablet 25 mg 25 mg, oral, Every 6 hours scheduled, First dose on Wed07/05/20 at 1830 0618 (Given - Provider: Jesse Waterman RN)1148 (Given - Provider: Genie Elliott RN)1803 (Given - Provider: Genie Elliott RN)2354 (Given - Provider: Jesse Waterman RN) 0622 (Given - Provider: Jesse Waterman RN)1210 (Given - Provider: Breanna Rodriguez RN)1721 (Given - Provider: Breanna Rodriguez RN)2314 (Given - Provider: Santy Brandt, DARCI) 0506 (Given - Provider: Qi Vidal RN)1144 (Given - Provider: Kenzie Salazar RN) pantoprazole DR (PROTONIX) extended release tablet 40 mg 40 mg, oral, Daily, First dose on Wed07/05/20 at 1830, Do not crush, chew, cut, dissolve, open or otherwise manipulate tablet/capsule., Indications: Stress Ulcer Prophylaxis 09 (Given - Provider: Genie Elliott RN) 0822 (Given - Provider: Breanna Rodriguez RN) 0900 (Given - Provider: Kenzie Salazar RN) ramelteon (ROZEREM) tablet 8 mg 8 mg, oral, Nightly, First dose on Wed07/10/20 at 2100, Indications: Sleep-Onset Insomnia 2044 (Given - Provider: Jesse Waterman RN) 2021 (Given - Provider: Santy Brandt RN) sodium chloride 0.9% bolus 500 mL (COMPLETED) 500 mL, intravenous, Once, On Wed07/10/20 at 0800, For 1 dose 0910 (New Bag - Provider: Genie Elliott RN) sodium chloride 0.9% flush 0.5-20 mL 0.5-20 mL, intra-catheter, Every 8 hours scheduled, First dose on Wed07/05/20 at 1645, Flush volume based on line type and size. 0620 (Given - Provider: Jesse Waterman, DARCI)1300 (Given - Provider: Genie Elliott, RN)204 (Given - Provider: Jesse Waterman RN) 0623 (Given - Provider: Jesse Waterman, DARCI)1210 (Given - Provider: Breanna Rodriguez, DARCI)2030 (Given - Provider: Santy Brandt, DARCI) 0506 (Given - Provider: Qi Vidal, DARCI) [...] Waterman RN)1210 (Given - Provider: Breanna Rodriguez, DARCI)230 (Given - Provider: Santy Brandt, DARCI) 040 (Not Given - Provider: Qi Vidal, DARCI - Reason: Other - Comment: repeat order) spironolactone (ALDACTONE) tablet 25 mg 25 mg, oral, Daily, First dose on Wed07/05/20 at 1830, On hold since Wed07/12/2020 at 0919 until manually unheld 0900 (Dose Auto Held - Provider: Vianney Caballero MD) 0648 (MAR Unhold - Provider: Obed Martinez MD)0821 (Given - Provider: Breanna Rodriguez, DARCI) 0900 (Given - Provider: Kenzie Salazar RN)0919 (Held by Provider - Provider: Arianna Huynh [...] Infection 1805 (New Bag - Provider: Genie Elliott, RN) 1846 (Not Given - Provider: Nancie Isabel RN - Reason: Order Discontinued) PRN Medication Order 07/10/2020 07/11/2020 07/12/2020 albuterol HFA (PROVENTIL HFA,VENTOLIN HFA,PROAIR HFA) 90 mcg/actuation inhaler 2 puff 2 puff, inhalation, Every 4 hours 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), shortness of breath, Starting on Wed07/05/20 at 1805, Indications: Acute Asthma Attack LORazepam (ATIVAN) tablet 0.5 mg (CANCELED) 0.5 mg, oral, Every 8 hours PRN, anxiety, Starting on Wed07/10/20 at 1247 1259 (Given - Provider: Genie Elliott RN)1856 (Given - Provider: Genie Elliott, DARCI) 0235 (Given - Provider: Jesse Waterman, DARCI)1020 (Given - Provider: Breanna Rodriguez RN) LORazepam [...] at 0641 0206 (Given - Provider: Jesse Waterman RN)0618 (Given - Provider: Jesse Waterman RN)1040 (Given - Provider: Genie Elliott RN)1553 (Given - Provider: Genie Elliott RN)2045 (Given - Provider: Jesse Waterman RN) 0235 (Given - Provider: Jesse Waterman RN)0622 (Given - Provider: Jesse Waterman RN)1020 (Given - Provider: Breanna Rodriguez RN)1721 (Given - Provider: Breanna Rodriguez RN)2309 (Given - Provider: Santy Brandt RN) 0609 (Given - Provider: Qi Vidal RN)1150 (Given - Provider: Kenzie Salazar RN) ondansetron ODT (ZOFRAN-ODT) disintegrating tablet 4 mg [...] Brandt RN) 0521 (Given - Provider: Kaylah Joens, DARCI)0907 (Given - Provider: Kenzie Salazar RN) sodium [...] Last Ordered Date First Ordered Date amoxicillin-clavulanate (FEB MENTIN) 875-125 mg per tablet 875 mg [...] ondansetron (ZOFRAN) injection 4 mg 2 07/0807/06/2020 lidocaine PF (XYLOCAINE) 10 mg/mL (1 %) [...] injection 10 mg 1 07/06/2020 sodium chloride 0.9 % irrigation 1 07/06/20 20 sodium chloride 0.9% flush 0.5-20 mL 4 [...] documented as of this encounter Care Teams Licensed Massage Practitioner Relationship Specialty Start Date End Date Bernardo Edwards MD [address] [place] [address] PCP - General 07/08/20 01/06/22 Jose Manuel Gruber MD Fellow Orthopedic Surgery 07/06/19 documented as of this encounter
--- OUTSIDE RECORDS SUMMARY | 2024-08-13 05:00 | XMS_ITS | Encounter Summary ---
Author Organization [facility] Healthcare Address [address] [place] [address] Care Team Providers Care Assembler Dc Field Yoke Name Role Phone Jose Manuel Gruber MD Unavailable [phone] Bernardo Edwards MD Primary Care Provider [phone] Hernando Velasquez MD Primary Care Provider [phone] Bernardo Edwards MD Primary Care Provider [phone] Encounter Details Date Type Department Care Team (Latest Contact Info) Description 07/05/2020 3:25 PM MATERIALS SPECIALIST - 07/12/2020 12:41 PM [facility] Hospital Encounter [facility] [address] [place] [address] Austin Figueroa MD [address] [facility] [address] [place] [address] Vianney Dia MD [address] [facility] [address] [place] [address] Christopher aJy MD [address] [facility] [address] [place] [address] Huang Gusman MD [address] [place] [address] Obed Martinez MD 1 [place] [address] Left leg wound (Primary Dx); Diagnosis unknown; Leg skin lesion, left Discharge Disposition: Discharge to SNF Social History Tobacco Use Types Packs/Day Years [...] Sign Reading Time Taken Comments Blood Pressure 148/66 07/12/2020 11:44 AM MATERIALS SPECIALIST Pulse 99 07/12/2020 11:44 AM MATERIALS SPECIALIST Temperature 36.8 ??C (98.2 ??F) 07/12/2020 8:58 AM CS T Respiratory Rate 18 07/12/2020 8:58 AM MATERIALS SPECIALIST Oxygen Saturation 98% 07/12/2020 8:58 AM MATERIALS SPECIALIST Inhaled Oxygen Concentration - - Weight 87.5 kg (192 lb 12.8 oz) 07/05/2020 3:33 PM MATERIALS SPECIALIST Height 157.5 cm (5' 2 ) 07/05/2020 3:33 PM MATERIALS SPECIALIST Body Mass Index 35.26 07/05/2020 3:33 PM MATERIALS SPECIALIST documented in this encounter Discharge Diagnoses Diagnosis Infection and inflammatory reaction due to internal left knee prosthesis, initial encounter (HCC) - INFECTION AND INFLAMMATORY REACTION DUE TO INTERNAL LEFT KNEE PROSTHESIS, INITIAL ENCOUNTER COVID-19 - COVID-19 Hypo-osmolality and hyponatremia - HYPO-OSMOLALITY AND HYPONATREMIA Chronic respiratory failure with hypoxia (CMS/HCC) (HCC) - CHRONIC RESPIRATORY FAILURE WITH HYPOXIA Osteomyelitis, unspecified (HCC) - OSTEOMYELITIS, UNSPECIFIED Urinary tract infection, site not specified - URINARY TRACT INFECTION, SITE NOT SPECIFIED Unspecified porphyria (HCC) - UNSPECIFIED PORPHYRIA Surgical operation with implant of artificial internal device as the cause of abnormal reaction of the patient, or of later complication, without mention of misadventure at the time of the procedure - SURGICAL OPERATION WITH IMPLANT OF ARTIFICIAL INTERNAL DEVICE THE CAUSE OF ABNORMAL REACTION OF T Proteus (mirabilis) (morganii) as the cause of diseases classified elsewhere - PROTEUS (MIRABILIS) (MORGANII) THE CAUSE OF DISEASES CLASSIFIED ELSEWHERE Hyperlipidemia, unspecified - HYPERLIPIDEMIA, UNSPECIFIED Anxiety disorder, unspecified - ANXIETY DISORDER, UNSPECIFIED Other chronic pain - OTHER CHRONIC PAIN Essential (primary) hypertension - ESSENTIAL (PRIMARY) HYPERTENSION Unspecified essential hypertension Sick sinus syndrome (CMS/HCC) (HCC) - SICK SINUS SYNDROME Sinoatrial node dysfunction Bipolar disorder, unspecified (HCC) - BIPOLAR DISORDER, UNSPECIFIED Bipolar disorder, unspecified Chronic obstructive pulmonary disease, unspecified (HCC) - CHRONIC OBSTRUCTIVE PULMONARY DISEASE, UNSPECIFIED Dependence on supplemental oxygen - DEPENDENCE ON SUPPLEMENTAL OXYGEN Gastro-esophageal reflux disease without esophagitis - GASTRO-ESOPHAGEAL REFLUX DISEASE WITHOUT ESOPHAGITIS care home (current) use of inhaled steroids - SPORTS COMPLEX ATTENDANT (CURRENT) USE OF INHALED STEROIDS Family history of ischemic heart disease and other diseases of the circulatory system - FAMILY HISTORY OF ISCHEMIC HEART DISEASE AND OTHER DISEASES OF THE CIRCULATORY SYSTEM Personal history of Methicillin resistant Staphylococcus aureus infection - PERSONAL HISTORY OF METHICILLIN RESISTANT STAPHYLOCOCCUS AUREUS INFECTION Acquired absence of both cervix and uterus - ACQUIRED ABSENCE OF BOTH CERVIX AND UTERUS Dependence on wheelchair - DEPENDENCE ON WHEELCHAIR Unspecified Escherichia coli (E. coli) as the cause of diseases classified elsewhere - UNSPECIFIED ESCHERICHIA COLI [E. COLI] THE CAUSE OF DISEASES CLASSIFIED ELSEWHERE Vitamin D deficiency, unspecified - VITAMIN D DEFICIENCY, UNSPECIFIED Deficiency of vitamin E - DEFICIENCY OF VITAMIN E Deficiency of other vitamins Sleep apnea, unspecified - SLEEP APNEA, UNSPECIFIED Constipation, unspecified - CONSTIPATION, UNSPECIFIED Erythematous condition, unspecified - ERYTHEMATOUS CONDITION, UNSPECIFIED Cardiac murmur, unspecified - CARDIAC MURMUR, UNSPECIFIED Unspecified convulsions (HCC) - UNSPECIFIED CONVULSIONS Other snf (current) drug therapy - OTHER SPORTS COMPLEX ATTENDANT (CURRENT) DRUG THERAPY Edema, unspecified - EDEMA, UNSPECIFIED Acquired absence of other specified parts of digestive tract - ACQUIRED ABSENCE OF OTHER SPECIFIED PARTS OF DIGESTIVE TRACT Acquired absence of other genital organ(s) - ACQUIRED ABSENCE OF OTHER GENITAL ORGAN(S) Acquired absence of ovaries, bilateral - ACQUIRED ABSENCE OF OVARIES, BILATERAL care home (current) use of opiate analgesic - HALF-WAY (CURRENT) USE OF OPIATE ANALGESIC Allergy status to sulfonamides - ALLERGY STATUS TO SULFONAMIDES Allergy status to other drugs, medicaments and biological substances - ALLERGY STATUS TO OTHER DRUGS, MEDICAMENTS AND BIOLOGICAL SUBSTANCES Latex allergy status - LATEX ALLERGY STATUS Allergy to seafood - ALLERGY TO SEAFOOD Activity, unspecified - ACTIVITY, UNSPECIFIED Unspecified place or not applicable - UNSPECIFIED PLACE OR NOT APPLICABLE Exposure to other specified factors, initial encounter - EXPOSURE TO OTHER SPECIFIED FACTORS, INITIAL ENCOUNTER documented in this encounter Discharge Summaries * Arianna Huynh MD - 07/12/2020 9:27 AM CST Inpatient Discharge Summary BRIEF OVERVIEW Admitting Provider: Vianney Caballero MD Discharge Provider: Christopher Jay MD Primary Care Physician at Discharge: Bernardo Edwards MD [phone] Admission Date: 07/05/2020 Discharge Date: 07/12/2020 Admission Location: [facility] Problems/Diagnoses: Principal Problem: Left lower extremity infection Active Problems: Moderate essential hypertension Open displaced comminuted fracture of shaft of left tibia, type IIIA, IIIB, or IIIC Chronic respiratory failure (CMS/[facility]) Hyponatremia COVID-19 Leg skin lesion, left Resolved [...] vancomycin x 1 and was transferred to [facility]. Also per report, pt was hyponatremic Na 123 (baseline 126-low 130s) but lab results not included in [facility] paper chart. ?? Of note, pt recently diagnosed with COVID at [facility] (per report 2 days prior to admission). Pt states she was having a cough and that at the SNF they regularly test patients. Denies fevers, chills, shortness of breath, abd pain, diarrhea, nausea, loss of smell or taste. She satting well on baseline 4LNC. ?? I reviewed pt's Epic chart and paper chart from [facility]. Hospital Course: Left leg infection- [...] report, pt was tested for COVID at [facility] 2 days. Per pt, residents [...] MIXED AEROBIC AND ANAEROBIC MICROORGANISMS Resulting Agency [facility] Susceptibility Proteus mirabilis INTERPRETATION Ampicillin Susceptible Ampicillin [...] Christopher Jay MD at 07/12/2020 3:20 PM MATERIALS SPECIALIST RIALS SPECIALIST RIALS SPECIALIST Associated attestation - Christopher Jay MD - 07/12/2020 3:20 PM MATERIALS SPECIALIST I have seen and examined the patient [...] day for 27 doses 27 tablet 07/12/2020 01/01/202 1 documented in this encounter Discharge Disposition Disposition Code Departure Means Destination Discharge to [facility] documented in this encounter Progress Notes * Keren Field MSW - 07/12/2020 1:03 PM CST 07/12/20 7219 Discharge Summary Chart reviewed For Medical Necessity Does patient have a planned readmission to hospital planned? No Discharge Disposition SNF, Commercial Insurance, Short term Skilled Specify Facility [facility] Facility Contact Number [phone] Bernardo Edwards Discharge Records Transfer Form Completed;Chart Copied Discharge Additional Assistance Does the patient need discharge transport arranged? Yes Has discharge transport been arranged? Yes Details of Transportation [facility] (Trip#: [phone]) What day is the transport expected? 07/12/20 [...] Patient agreed to d/c plan. Elton from [facility] accepted patient for placement today (Report: [phone], ). Patient is medically stable, chart copied,insurance approved ([employer]: [id number]), [facility] willing to take patient, and transfer paperwork completed. [facility] arranged to transport patient to [facility] on 07/12/2020 at 2:00pm (Trip#: [phone]). Patient/family informed that while medical team will [...] bill. Patient/family voiced understanding. Keren Field LMSW [phone] RIALS SPECIALIST * Arianna Huynh MD - 07/12/2020 1:01 [...] discharge - NWB left lower extremity. - Loan Operations Specialist placed stump raise driller / ampushield. Awaiting delivery of limb protector. [...] protonix 40mg daily #Chronic pain - continue CONTROL SPECIALIST gabapentin 400mg q8h, baclofen #Anxiety Continue home ativan 0.5mg q6h PRN, buspar Code Status: Full Code Diet: Adult Diet Regular DVT Prophylaxis: Lovenox Access: PIV Dispo: return to previous SNF today Arianna Huynh MD, PGY1 Cosigned by Christopher Jay MD at 07/12/2020 3:14 PM MATERIALS SPECIALIST RIALS SPECIALIST RIALS SPECIALIST * Nancie Isabel RN - 07/11/2020 6:48 [place] [id number]. 1800 dose of vanc held per MD Martinez. RIALS SPECIALIST * Ernesto Devine MD PhD - 07/11/2020 [...] post op. Dressings have been changed and Ani protocol initiated. Objective Vitals: 24hr Min/Max: Temp [...] distress Breathing regular and unlabored LLE: Stump raise driller in place Sensory intact to stump Laboratory [...] the appropriate orthopaedic surgery team, please use [email or web address] to page resident directly. ? If you have questions overnight or can't reach the appropriate resident, please call the Orthopaedic Surgery Consult Pager [phone] to have your questions answered or be directed to the correctOrthopaedic Surgery resident. RIALS SPECIALIST * Arianna Huynh MD - 07/11/2020 5:18 [...] proteus showed scott susceptible and cultures from L LAURELA remain NGTD. Currently pending final ID recs [...] consulted - NWB left lower extremity. - Loan Operations Specialist placed stump raise driller / ampushield. Awaiting delivery of limb protector. [...] protonix 40mg daily #Chronic pain - continue CONTROL SPECIALIST gabapentin 400mg q8h, baclofen #Anxiety Continue home ativan 0.5mg q6h PRN, buspar Code Status: Full Code Diet: Adult Diet Regular DVT Prophylaxis: Lovenox Access: PIV Dispo: return to previous SNF when appropriate Arianna Huynh MD, PGY1 Cosigned by Christopher Jay MD at 07/12/2020 3:52 PM MATERIALS SPECIALIST RIALS SPECIALIST RIALS SPECIALIST RIALS SPECIALIST RIALS SPECIALIST Associated attestation - Christopher Jay MD - 07/12/2020 3:52 PM MATERIALS SPECIALIST I have seen and examined the patient on 07/12/20. I agree with the findings and plan of care as documented in the resident's/fellow's note.. * Rosy Michel - 07/11/2020 3:20 PM CST Spiritual Care Note Chaplain Rosy Michel [phone] 07/11/20 1206 Time Spent Start Time 1206 Stop Time 1220 Time Calculation (min) 14 min Patient Spiritual Assessment Spirituality Assessed Focus of Care Clinical Encounter Type Visited With Patient Response Type Routine visit Routine Visit Introduction Reason for visit Support (Process recent amputation) Referral From Nurse Referral To Residential Sales Outcomes and Interventions Outcomes Demonstrating care and respect;Aligning care with Patient's values RIALS SPECIALIST * Terra Winter PA - 07/11/2020 12:45 PM CST Infectious Disease Bone & Joint Team Progress Note Bone and Joint Pager [phone] (attending pager)JOSE CRUZ desk: [phone]; pager: [phone] Subjective Chief complaint of osteomyelitis, TKA PJI [...] interval not displayed. Recent Labs Lab Units 07/10/20210307/09/20210207/08/[id number]/05/20181207/05/20 181 ALK PHOS Units/L 135* 149* 195* < [...] Drug Monitoring: Lab Results Component Value Date ADELSO 7.9 (L) 07/08/2020 Assessment/Plan COVID-19 Assessment & [...] contact the ID B&J Team PA at [phone] (desk) or [phone] (work cell) M-F, 7-3; or the Attending at [phone] (pager) with any questions or concerns. After hours, the ID fellow containers sales representative can be reached at [phone]. The patient was reviewed and examined with Dr. Jeremías solomon, on 07/11/2020. Cosigned by Og Cintron MD at 07/11/2020 1:04 PM MATERIALS SPECIALIST RIALS SPECIALIST RIALS SPECIALIST RIALS SPECIALIST Associated attestation - Og Cintron MD - 07/11/2020 1:04 PM MATERIALS SPECIALIST I have seen and examined the patient [...] was not from the margin, hence, not labor service representative. If bone culture remain NG tomorrow, can discontinue cefe/vanc and switch to augmentin PO * Obed Martinez MD - 07/11/2020 6:55 AM CST Daily Progress Note Division of Hospital Medicine Name: Celestina Ansari Age: 69 y.o. female : 1950 Today: July 11, 2020 Admit: 07/05/2020 Bed: [id number] Subjective Chief Complaint: Leg infection, COVID-19 Interval [...] Results: I have independently reviewed records in [facility]. Assessment/Plan * Left lower extremity infection [...] left lower extremity. - PM&R consulted. - Loan Operations Specialist placed stump raise driller / ampushield. Awaiting delivery of limb protector. - Patient not interested in prosthesis at this time. - PT/OT consults. - Plan for patient to return to her prior SNF when medically stable with ongoing PT/OT. - ID and Ortho following. COVID-19 Assessment & Plan - Patient tested positive for COVID-19 on 06/21/20 at her fdc ([facility] in [place], [place]). - She reports her only symptom [...] 17. - Na stable. Chronic respiratory failure (CMS/[facility]) Assessment & Plan - Per pt 2/2 [...] Adult Diet Regular DVT Prophylaxis: Lovenox Access: LIOR Martinez MD 07/11/2020 6:59 AM For patient related questions from 7 AM until 7 PM, please contact the primary Hospitalist team. From 7 PM until 7 AM, please call the Hospitalist cross cover phone. RIALS SPECIALIST * Sierra Benavidez, PT - 07/10/2020 5:01 [...] treatment team and contact the PT or CONTROL SPECIALIST currently assigned to this patient. If a physical therapy clinician is not assigned to this patient, please call [phone]. 07/10/20 1701 PT Last Visit Session Type [...] this the discharge summary Recommendation/Plan PT Recommendation/Plan Long-Term Facility PT Frequency 3-5x/wk PT - Next [...] prevent contractures and weakness of L stump. RIALS SPECIALIST * Obed Martinez MD - 07/10/2020 7:12 AM CST Daily Progress Note Division of Hospital Medicine Name: Celestina Ansari Age: 69 y.o. female : 1950 Today: July 10, 2020 Admit: 07/05/2020 Bed: [id number] Subjective Chief Complaint: Leg infection, COVID-19 Interval [...] Results: I have independently reviewed records in [facility]. Assessment/Plan * Left lower extremity infection [...] left lower extremity. - PM&R consult. - Loan Operations Specialist to place stump raise driller / ampushield on POD2-3. - ID and Ortho following. COVID-19 Assessment & Plan - Patient tested positive for COVID-19 on 06/21/20 at her fdc ([facility] in [place], [place]). - She reports her only symptom [...] 132. Restart when able. Chronic respiratory failure ([facility]) Assessment & Plan - Per pt 2/2 [...] Prophylaxis: Lovenox Access: PIV Obed Martinez MD 07/10/2020 10:58 AM For patient related questions from 7 AM until 7 PM, please contact the primary Hospitalist team. From 7 PM until 7 AM, please call the Hospitalist cross cover phone. RIALS SPECIALIST * Ernesto Devine MD PhD - 07/10/2020 [...] well post op. Pain controlled this AM. Loan Operations Specialist planning to see today v tomorrow Objective [...] aware of pt and will place stump raise driller/ampusheild on POD2-3. ??? Ortho to follow Ernesto Devine MD PhD Orthopaedic Surgery PGY-2 ? During normal business hours - If you know the resident's name on the appropriate orthopaedic surgery team, please use [email or web address] to page resident directly. ? If you have questions overnight or can't reach the appropriate resident, please call the Orthopaedic Surgery Consult Pager [phone] to have your questions answered or be directed to the correctOrthopaedic Surgery resident. RIALS SPECIALIST * Terra Winter PA - 07/09/2020 4:19 PM CST Infectious Disease Bone & Joint Team Progress Note Bone and Joint Pager [phone] (attending pager), JOSE CRUZ desk: [phone]; pager: [phone] Subjective Chief complaint of osteomyelitis/PJI Interval History: [...] Drug Monitoring: Lab Results Component Value Date [facility] 7.9 (L) 07/08/2020 Assessment/Plan COVID-19 Assessment & [...] contact the ID B&J Team PA at [phone] (desk) or [phone] (work cell) M-F, 7-3; or the Attending at [phone] (pager) with any questions or concerns. After hours, the ID fellow containers sales representative can be reached at [phone]. D/w primary team over the phone today The patient was reviewed and examined with Dr. Veronica today, on 07/09/2020. Cosigned by Og Cintron MD at 07/11/2020 1:18 PM MATERIALS SPECIALIST RIALS SPECIALIST RIALS SPECIALIST RIALS SPECIALIST RIALS SPECIALIST RIALS SPECIALIST Associated attestation - Og Cintron MD - 07/11/2020 1:18 PM MATERIALS SPECIALIST I have seen and examined the patient [...] aware of pt and will place stump raise driller/ampusheild on POD2-3. ??? Ortho to follow Ernesto Devine MD PhD Orthopaedic Surgery PGY-2 ? During normal business hours - If you know the resident's name on the appropriate orthopaedic surgery team, please use [email or web address] to page resident directly. ? If you have questions overnight or can't reach the appropriate resident, please call the Orthopaedic Surgery Consult Pager [phone] to have your questions answered or be directed to the correctOrthopaedic Surgery resident. RIALS SPECIALIST * Gilberto Armstrong, PT - 07/09/2020 10:16 [...] PT Recommendation and Plan Recommendation/Plan PT Recommendation/Plan: Long-Term Facility PT Recommendation/Plan Comments: back to facility [...] stated Prior Function Prior Function Level of [place]: Independent with ADLs, Independent functional transfers, Independent with wheelchair Lives With: Other (Comment)(SNF) Receives Help From: Other (Comment)(SNF staff) Driving: No Vocational/Occupation: Retired Fall within the last 6 months: No Home Living Home Living Type of Home: Long-Term Facility Home Layout: One level Home Access: [...] Start Date End Date [facility] -- Goal Details: Pt will verbalize and demonstrate understanding of AKA HEP to prevent contractures and weakness of L stump. RIALS SPECIALIST * Marion Walsh, OT - 07/09/2020 8:55 AM CST Occupational Therapy For questions, please review the treatment team and contact the occupational therapist currently assigned to this patient. If an occupational therapist is not assigned to this patient, please call [phone]. 07/09/20 1259 General Chart Reviewed Yes Session Type Evaluation [...] Bearing NWB Home Living Type of Home Long-Term Facility Home Layout One level Home Access Level entry Bathroom Toilet Standard Home Mobility Equipment Wheeled walker;Wheelchair-manual Prior Function Level of [place] Independent with ADLs;Independent functional transfers;Independent with ambulation [...] this the discharge summary Recommendation/Plan OT Recommendation Long-Term Facility OT Frequency 2-3x/wk Treatment/Interventions ADL/IADL retraining;Balance Training;Bed mobility;Endurance training;Functional activity;Functional mobility training;Functional transfer training;Strengthening;Therapeutic act ivity;Therapeutic exercise;Transfer training OT - Next Appointment 07/11/20 OT - OK to Discharge No OT Evaluation Complete Yes RIALS SPECIALIST * Obed Martinez MD - 07/09/2020 7:19 AM CST Daily Progress Note Division of Hospital Medicine Name: Celestina Ansari Age: 69 y.o. female : 1950 Today: July 09, 2020 Admit: 07/05/2020 Bed: [id number] Subjective Chief Complaint: Leg infection, COVID-19 Interval [...] Results: I have independently reviewed records in [facility]. Assessment/Plan * Left lower extremity infection [...] for COVID-19 on 06/21/20 at her fdc ([facility] in [place], [place]). - She reports her only symptom [...] Adult Diet Regular DVT Prophylaxis: Lovenox [facility] Obed Martinez MD 07/09/2020 12:51 PM For patient related questions from 7 AM until 7 PM, please contact the primary Hospitalist team. From 7 PM until 7 AM, please call the Hospitalist cross cover phone. RIALS SPECIALIST * Ave Samaniego, DARCI - 07/08/2020 5:19 PM CST CM Initial Assessment Interview Note Information Obtained From: Adult child Name: Martina Ansari, daughter, (07/08/20 0586) Admission Source: [facility] [place], [place] Impression: Covid 19 infection and patient [...] transport arranged?: Yes (07/08/201717) Health Insurance Coverage: [place], and [facility] Medicare HMO Prescription Coverage: yes Pharmacy: [facility] Primary Care Provider: Bernardo Edwards MD Prior to Admission: Primary Caregiver: Facility staff Support System: Children, Friends/neighbors Support system contact info (name, phone, availablity): Martina Ansari daughter, lives in [place] and Jt Contreras Friend/neighbor [phone] Home Care Services: No Durable Medical Equipment: CPAP/Bi-PAP, Walker (wheeled), Nebulizer, Home Modification Assessment (railes in bathroom) Living Arrangements: Alone(Currently at [facility] for PT) Type of Residence: Private residence, Apartment Steps in home? : No steps inside or outside (07/08/201712) Potential discharge needs include: Dialysis: Dialysis: No (07/08/201712) Behavioral Health Services: Behavioral Health Services: No (07/08/201712) Patient expects to be Discharged to: Long-Term Facility, (07/08/201717) Additional Information: Patient currently temporaraly residing in a SNF for therapy related to the above history. Patient lives in subsidized fdc apartments which is being held for patient.Patient's daughter, Martina, is in agreement for patient to return to [facility], if patient is in agreement with returning. [...] community resources. Plan includes: 1. Collaboration with MD vincent, direct care nurse, Director Of Officiating, Nurse Coordinator and other members of the health care team to assure needed interventions completed. 2. Return patient to optimal level of self-care post discharge. 3. Electric Fork Operator will follow for Discharge Planning - interventions [...] with the aftercare plan. Ave Samaniego RN RIALS SPECIALIST * Obed Martinez MD - 07/08/2020 7:08 [...] ondansetron ODT ??? [MAR Hold] oxyCODONE ??? [MAR Hold] sodium chloride 0.9% ??? [MAR Hold] sodium chloride 0.9% Vitals: Most Recent [...] EKG/Min 76 BPM Atrial Rate 76 BPM NH-Interval (MSEC) 174 ms QRS-Interval (MSEC) 84 ms QT-Interval (MSEC) 414 ms QTc 465 ms P [place] 70 degrees R [place] -21 degrees T [place] 22 degrees Diagnosis Normal sinus rhythm Voltage [...] Results: I have independently reviewed records in [facility]. Assessment/Plan * Left lower extremity infection [...] Diet: NPO Diet DVT Prophylaxis: Lovenox [facility] Obed Martinez MD 07/08/2020 4:28 PM For patient related questions from 7 AM until 7 PM, please contact the primary Hospitalist team. From 7 PM until 7 AM, please call the Hospitalist cross cover phone. RIALS SPECIALIST * Vianney Dia MD - 07/07/2020 6:28 PM CST Daily Progress Note Division of Hospital Medicine COVID Unit Name: Celestina Ansari Today: July 07, 2020 : 1950 Age: 69 y.o. female Admit: 07/05/2020 Bed: [id number] Subjective Chief complaint: L leg infection c/f [...] (CMS/HCC) Assessment & Plan - Per pt 2/ [...] SCD. Holding enoxaparin for procedure. Please call [phone] with any questions or concerns from 7am-7pm. Please call the cross cover phone after hours. Vianney Caballero MD 07/07/2020 6:27 PM RIALS SPECIALIST * Gumaro Graham MD - 07/07/2020 12:11 [...] interested in talking with a amputee from [facility] at this time. Objective Vitals: [...] DVT ppx: For primary team, we prefer Kerri Graham MD Orthopaedic Surgery PGY-3 [facility] in [place] Please call or text with questions or concerns Phone number can be found on [email or web address] RIALS SPECIALIST * Vianney Dia MD - 07/06/2020 3:11 PM CST Daily Progress Note Division of Hospital Medicine COVID Unit Name: Celestina Ansari Today: July 06, 2020 : 1950 Age: 69 y.o. female Admit: 07/05/2020 Bed: [id number] Subjective Chief complaint: L leg infection c/f [...] - Start antimicrobials post-OR Chronic respiratory failure (CMS/HCC) Assessment & Plan [...] SCD. Holding enoxaparin for procedure. Please call [phone] with any questions or concerns from 7am-7pm. Please call the [employer] cover phone after hours. Vianney Caballero MD 07/06/2020 3:10 PM RIALS SPECIALIST * Gumaro Graham MD - 07/06/2020 11:08 [...] OR Gumaro Graham MD Orthopaedic Surgery PGY-3 [facility] in [place] Please call or text with questions or concerns Phone number can be found on [email or web address] RIALS SPECIALIST documented in this encounter H&P Notes * Jacobo Shoemaker MD - 07/08/2020 9:38 AM CST I have reviewed the H&P, examined the patient, and endorse the findings as written. Plan of Care : Based on the above findings, I consider Celestina Ansari to be an acceptable risk for : Procedure(s): AMPUTATION ABOVE KNEE RIALS SPECIALIST Source Note - Leroy Reddy MD - 07/05/2020 9:08 PM MATERIALS SPECIALIST Orthopaedic Surgery Trauma Consult July 05, 2020 9:10 PM Reason for Consult: L T3 open periprosthetic tib/fib shaft fx periprosthetic infection Requesting Provider: No ref. provider found Consulting Provider: Resident - Maureen/Attending - Sondra Patient (home) Insurance: Payor: [employer] MEDICARE / Plan: [employer] / Product Type: *No Product type* [...] of injury -Onset: immediate -Duration: hours -Severity: 6-8/10 -Quality: sharp, stabbing -Alleviating Factors: rest, pain [...] ??? Iodine Unknown ??? Latex Unknown ??? [place]-3 Fatty Acids Unknown ??? Other Unknown seafood [...] 100 % Most Recent: Vitals: 07/05/20 1533 07/05/20199907/05/202039 BP: 133/62 133/62 BP Location: Right arm [...] only and have not been reviewed by [facility] Radiology. There will be no report generated by a [facility] Radiologist. Clinical Images: None Procedure: No procedure was performed or indicated at this time Assessment: Celestina Ansari is a 69 y.o. female: Plan: - On [facility] Medicine team - Plan: Operative management - [...] the appropriate orthopaedic surgery team, please use [email or web address] to page resident directly. ?? If you have questions overnight or can't reach the appropriate resident, please call the Orthopaedic Surgery Consult Pager [phone] to have your questions answered or be directed to the correct Orthopaedic Surgery resident. This patient was evaluated within 30 minutes of consultation. Leroy Reddy MD Orthopaedic Surgery PGY-2 [facility] in [place] Cosigned by Ethel Amaro MD at 07/06/2020 4:45 PM MATERIALS SPECIALIST RIALS SPECIALIST RIALS SPECIALIST RIALS SPECIALIST * Ethel Amaro MD - 07/06/2020 4:48 PM CST I have reviewed the H&P, examined the patient, and endorse the findings as written. Plan of Care : Based on the above findings, I consider Celestina Ansari to be an acceptable risk for : Procedure(s): REMOVAL HARDWARE - TIBIA/FIBULA IRRIGATION AND DEBRIDEMENT - TIBIA RIALS SPECIALIST Source Note - Leroy Reddy MD - 07/05/2020 9:08 PM MATERIALS SPECIALIST Orthopaedic Surgery Trauma Consult July 05, 2020 9:10 PM Reason for Consult: L T3 open periprosthetic tib/fib shaft fx periprosthetic infection Requesting Provider: No ref. provider found Consulting Provider: Resident - Maureen/Attending - Sondra Patient (home) Insurance: Payor: AET[employer] MEDICARE / [facility]: [employer] [facility] / Product Type: *No Product [...] of injury -Onset: immediate -Duration: hours -Severity: 6-8/10 -Quality: sharp, stabbing -Alleviating Factors: rest, pain [...] cephalexin (KEFLEX) 500 mg capsule 04/24/20 07/05/20 Provider, MD Lucille doxycycline 100 mg tablet 05/01/20 07/05/20 Provider, MD Lucille Allergies Allergen Reactions ??? Fish Containing Products Anaphylaxis ??? Iodine Unknown ??? Latex Unknown ??? [place]-3 Fatty Acids Unknown ??? Other Unknown seafood [...] % Most Recent: Vitals: 07/05/20 1533 07/05/20199907/05/20 204 BP: 133/62 133/62 BP Location: Right arm [...] only and have not been reviewed by [facility] Radiology. There will be no report generated by a [facility] Radiologist. Clinical Images: None Procedure: No procedure was performed or indicated at this time Assessment: Celestina Ansari is a 69 y.o. female: Plan: - On [facility] Medicine team - Plan: Operative management - [...] the appropriate orthopaedic surgery team, please use [email or web address] to page resident directly. ?? If you have questions overnight or can't reach the appropriate resident, please call the Orthopaedic Surgery Consult Pager [phone] to have your questions answered or be directed to the correct Orthopaedic Surgery resident. This patient was evaluated within 30 minutes of consultation. Leroy Reddy MD Orthopaedic Surgery PGY-2 [facility] in [place] Cosigned by Ethel Amaro MD at 07/06/2020 4:45 PM MATERIALS SPECIALIST RIALS SPECIALIST RIALS SPECIALIST RIALS SPECIALIST * Vianney Dia MD - 07/05/2020 6:03 [...] vancomycin x 1 and was transferred to [facility]. Also per report, pt was hyponatremic Na 123 (baseline 126-low 130s) but lab results not included in [facility] paper chart. Of note, pt recently diagnosed with COVID at [facility] (per report 2 days prior to admission). Pt states she was having a cough and that at the SNF they regularly test patients. Denies fevers, chills, shortness of breath, abd pain, diarrhea, nausea, loss of smell or taste. She satting well on baseline 4LNC. I reviewed pt's Epic chart and paper chart from [facility]. Past Medical History: Diagnosis Date [...] ??? Iodine Unknown ??? Latex Unknown ??? [place]-3 Fatty Acids Unknown ??? Other Unknown seafood [...] report, pt was tested for COVID at [facility] 2 days prior to admission (would be [...] Plan - As elsewhere Chronic respiratory failure ([facility]) Assessment & Plan - Per pt 2/2 [...] GM Sodium DVT Prophylaxis: lovenox Please call [phone] with any questions or concerns from 7 am to 7pm. Call the cross cover phone after hours. Vianney Caballero MD 07/05/2020 6:02 PM RIALS SPECIALIST documented in this encounter Procedure Notes * Mary Ann Enamorado RN - 07/07/2020 5:46 PM CST Vascular Access Nurse: Procedure Note Summary of treatment provided to patient today is as follows : . Bedside Procedure Time out/Checklist (last 4 hours) Pre-Op Checklist Row Name 07/07/20 1400 Patient/Chart Verification Arm Bands On ID;Allergies -JW User Garcia (r) = Recorded By, (t) [...] Properties Placement Date: 07/05/20 -AT Placement Time: 154 -AT Type: Angiocath -AT Size (Gauge): 22 G -AT Location Orientation: Right -AT Location: Forearm -AT Local Anesthetic: None -AT Technique: Anatomical landmarks -AT Inserted by: Trinity Crabtree RN -AT Insertion attempts: 1 -AT Patient Tolerance: Tolerated well -AT Site Assessment -- Clean and dry -JW Line Status Single -- Infusing -JW Dressing Type -- Transparent -JW Dressing Status -- Clean, dry, intact -JW Peripheral IV 07/07/20 22 G Right Antecubital;Forearm IV Properties Placement Date: 07/07/20 -AP Placement Time: 1744 -AP Type: Angiocath -AP Size (Gauge): 22 [...] By, (c) = Cosigned By Initials Name Janis Esteban RN AP Prater, Amy Marie, RN JW Wright, Jacqualine Defaye, RN Plan: Follow up: Mary Ann Enamorado RN RIALS SPECIALIST documented in this encounter Consult Notes * Obed Poole Jr., MD - 07/10/2020 8:16 AM CSTAssociated Order(s): CONSULT TO PM&R PHYSICIAN Patient Name: CELESTINA ANSARI Medical Record Number (MRN): [id number] Date of (): 1950 Encounter Date: 07/05/2020 [...] left lower extremity. - PM&R consult. - Loan Operations Specialist to place stump raise driller / ampushield on POD2-3. - ID and Ortho following. ?? COVID-19 - Patient tested positive for COVID-19 on 06/21/20 at her fdc ([facility] in [place], [place]). - She reports her only symptom [...] ??? Iodine Unknown ??? Latex Unknown ??? [place]-3 Fatty Acids Unknown ??? Other Unknown seafood [...] file Gets together: Not on file Attends spiritism service: Not on file Active member of [...] well to strict commands Recommendation/Plan PT Recommendation/Plan: Long-Term Facility PT Recommendation/Plan Comments: back to facility [...] Lying Pulse: 100 106 90 91 Resp: Temp: 99.7 ??F (37.6 ??C) 98.6 ??F [...] SNF (where she was COVID + on 06/21).Loan Operations Specialist is aware of patient and planning to place raise driller/ampushield soon. Plan # Medical Plan: Per primary [...] have patient evaluated by PT, OT, and PRECONSTRUCTION MANAGER Thank you for this consult and for your consideration of the above recommendations. For questions or concerns, please call the PM&R Consul service at . Obed Poole MD Resident Physician, PGY-3 Physical Medicine & Rehabilitation Division of Neurorehabilitation, Department of Neurology [facility] in [place] Cosigned by Roaxnne Spring MD at 07/10/2020 3:48 PM MATERIALS SPECIALIST RIALS SPECIALIST RIALS SPECIALIST Associated attestation - Roxanne Spring MD - 07/10/2020 3:48 PM MATERIALS SPECIALIST I have seen and examined the patient on 07/10/20. I agree with the findings and plan of care as discussed with and documented by Dr. Obed Poole, PM&R Consult Resident. Ms. Celestina Ansari is a 69 y.o. 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 Prior to this, she had been residing at a long-term facility. She reported that she had been [...] recently dressed and she was wearing a raise driller. She is currently requiring significant assist with [...] proper wound care and protecting the limb. Loan Operations Specialist is to deliver limb protector in the next day or so. The patient indicated that she is not interested in receiving a prosthetic limb at this point. I instructed that she should remain in contact with her prosthetists through Loan Operations Specialist and if that changes in the future [...] Please contact the PM&R Consult service at [phone] if you have any questions or if the patient's clinical condition changes. Roxanne Spring MD Electrical Software Engineer, PM&R Division of Neurorehabilitation, Department of Neurology [facility] in [place] * Og Cintron MD - 07/06/2020 9:53 AM CSTAssociated Order(s): CONSULT TO BONE AND JOINT INFECTIOUS DISEASE Infectious Disease Initial Consult Note Infectious Disease Team: Bone and Joint Contact Information: Please see EPIC Treatment Team listing for up-to-date contact information. [...] prompted her to go to the OSH ([facility]) where one dose of vancomycin [...] oral Q8H Vianney Dia MD 1,000 mg at109/06/19 09 ??? albuterol HFA (PROVENTIL HFA,VENTOLIN HFA,PROAIR HFA) [...] (LOVENOX) syringe 40 mg 40 mg subcutaneous Daily-2100 Vianney Dia MD ??? fluticasone propionate (FLONASE) 50 mcg/actuation nasal spray 2 spray 2 spray each nostril Daily Vianney Dia MD ??? furosemide (LASIX) tablet 40 mg 40 mg oral BID Vianney Dia MD 40 mg at 07/06/20902 ??? gabapentin (NEURONTIN) capsule 400 mg 400 mg oral Q8H Vianney Dia MD 400 mg at 07/06/20902 ??? losartan (COZAAR) tablet 50 mg 50 mg oral Daily Vianney Dia MD 50 mg at 07/06/20901 ??? metoprolol tartrate (LOPRESSOR) immediate release tablet 25 mg 25 mg oral Q6H [facility] Vianney Dia MD 25 mg at 07/06/20 0500 ??? ondansetron ODT (ZOFRAN-ODT) disintegrating tablet 4 mg 4 mg oral Q4H PRN Angel Crystal DO 4mg at 07/06/20 0034 ??? oxyCODONE (ROXICODONE) tablet 5 mg 5 mg oral Q4H PRN Vianney Dia MD 5 mg at ??? pantoprazole DR (PROTONIX) extended release tablet 40 mg 40 mg oral Daily Vianney Dia MD 40 mg at 07/06/20 09 ??? sodium chloride 0.9% flush 0.5-20 mL [...] ??? Iodine Unknown ??? Latex Unknown ??? [place]-3 Fatty Acids Unknown ??? Other Unknown seafood [...] 100 % Most Recent : Vitals: 07/06/20 0905 BP: 133/53 Pulse: 78 Resp: 20 Temp: [...] 100* CRP: Recent Labs Lab Units 07/05/20 1813 CRP mg/L 236.6* Last UA: Recent Labs [...] mg/dL). Cr. Trend: Recent Labs Lab Units 07/05/20 1813 CREATININE mg/dL 1.02 Last HIV Labs (if any): HIV Ab Screen: No results found for: [id number] HIV Viral Load: No results found for: [id number] CD4 Count: No results found for: CD4ABS Radiology: Radiology results were reviewed. Last X-Ray Result: Results for orders placed during the hospital encounter of 07/05/20 XR Outside Reference Narrative EXAMINATION: Images For Reference Purposes Only Impression These images are for Reference purposes only and have not been reviewed by [facility] Radiology. There will be no report generated by a [facility] Radiologist. Last CT Result: Results for orders [...] contact the ID B&J Team PA at [phone] (desk) or [phone] (work cell) M-F, 7-3; or the Attending at [phone] (pager) with any questions or concerns. After hours, the ID fellow containers sales representative can be reached at [phone]. COVID-19 Assessment & Plan - recommend getting records from SNF to establish exact date of first (+) COVID test. - pt likely has completed days of isolation. RIALS SPECIALIST * Leroy Reddy MD - 07/05/2020 9:08 PM CSTAssociated Order(s): CONSULT TO ORTHO-TRAUMA Orthopaedic Surgery Trauma Consult July 05, 2020 9:10 PM Reason for Consult: L T3 open periprosthetic tib/fib shaft fx periprosthetic infection Requesting Provider: No ref. provider found Consulting Provider: Resident - Maureen/Attending - Sondra Patient (home) Insurance: Payor: AETNA MEDICARE / Plan: [employer] [facility] / Product Type: *No Product type* / [...] mouth daily. Indications: deficiency of vitamin E Provider, MD Lucille cephalexin (KEFLEX) 500 mg capsule 04/24/20 07/05/20 Lucille Junior MD doxycycline 100 mg tablet 05/01/20 07/05/20 Lucille Junior MD Allergies Allergen Reactions ??? Fish Containing Products Anaphylaxis ??? Iodine Unknown ??? Latex Unknown ??? [place]-3 Fatty Acids Unknown ??? Other Unknown seafood [...] only and have not been reviewed by [facility] Radiology. There will be no report generated by a [facility] Radiologist. Clinical Images: None Procedure: No procedure was performed or indicated at this time Assessment: Celestina Ansari is a 69 y.o. female: Plan: - On [facility] Medicine team - Plan: Operative management - [...] the appropriate orthopaedic surgery team, please use [email or web address] to page resident directly. ?? If you have questions overnight or can't reach the appropriate resident, please call the Orthopaedic Surgery Consult Pager [phone] to have your questions answered or be directed to the correct Orthopaedic Surgery resident. This patient was evaluated within 30 minutes of consultation. Leroy Reddy MD Orthopaedic Surgery PGY-2 [facility] in [place] Cosigned by Ethel Amaro MD at 07/06/2020 4:45 PM MATERIALS SPECIALIST RIALS SPECIALIST RIALS SPECIALIST RIALS SPECIALIST Associated attestation - Ethel Amaro MD - 07/06/2020 4:45 PM MATERIALS SPECIALIST I personally saw and examined the patient [...] Nursing Note Discharge Disposition Care Center at [facility] Discharge Transportation [facility] (Trip#: [id number]) Set for 1400 pickup Belongings Returned as charted. LDA's Removed per protocol AVS Patient sent with AVS, healthcare facility AVS, and packet. AVS discussed and signed. No questions asked. Report Called by Deena BEJARANO Actual Discharge Time 1441 RIALS SPECIALIST RIALS SPECIALIST * Kenzie Salazar RN - 07/12/2020 12:41 PM CST 1241 Patient was discharged to SNF.Discharge instructions given by Matilde. Care handed over to the SNF, RN. Leg stump clean, dry and intact. Due pain meds given. V/S stable. RIALS SPECIALIST * Qi Vidal RN - 07/12/2020 12:15 AM CST Patient transferred to [id number]. I assumed care for this patient at 2345. I agree with all charting done by Santy, RN, except where noted. Patient resting comfortably in bed with no complaints. RIALS SPECIALIST RIALS SPECIALIST * Breanna Rodriguez RN - 07/11/2020 5:47 PM CST Patient transferred to [address] [place] [address] from [facility] in stable condition. Vital signs stable. Patient denies any chest pain, sob,or dizziness, on departure from floor. [place] [phone]. RIALS SPECIALIST * Genie Elliott RN - 07/10/2020 10:13 [...] Management and Skin Breakdown Prevention/Treatment. Patient and/or labor service representative Verbalizes understanding. Will continue to monitor. RIALS SPECIALIST * Genie Elliott RN - 07/09/2020 2:40 [...] Management and Skin Breakdown Prevention/Treatment. Patient and/or labor service representative Verbalizes understanding. Will continue to monitor. RIALS SPECIALIST * Yarely Hopkins RN - 07/08/2020 6:18 [...] Patient verbalizes understanding. Will continue to monitor. RIALS SPECIALIST documented in this encounter Miscellaneous Notes * [...] free from falls 07/12/2020 1344 by Matilde Griffin [...] nursing note for detailed summary of shift. RIALS SPECIALIST * Plan of Care - Terra Winter [...] prompted her to go to the OSH ([facility]) where one dose of vancomycin [...] Og Cintron MD at 07/12/2020 11:30 AM MATERIALS SPECIALIST RIALS SPECIALIST RIALS SPECIALIST RIALS SPECIALIST * Plan of Care - Keren Field MSW - 07/12/2020 10:35 AM CST Social Work noted patient transferred [place] [address] [place] [address]. Per chart review patient admitted from [facility] and plan is to return at time of discharge. Social Work to follow. Keren Field AGRICULTURAL SYSTEMS SPECIALIST [phone] RIALS SPECIALIST * Plan of Care - Qi Vidal [...] a restful night Summary: Patient reported pain . PRN pain meds given. Patient refused all turns. VSS. RIALS SPECIALIST RIALS SPECIALIST * Significant Event - Obed Martinez MD - 07/11/2020 4:19 PM MATERIALS SPECIALIST Attending Note - Resolved COVID-19 Celestina Ansari is a patient who is known to have had test-confirmed COVID-19 disease starting on 06/21/20. A review of this case was performed by me (the primary inpatient attending) and based on the patient???s clinical picture and course this patient has met the appropriate symptom, time, or testing criterion established by [facility] to be considered to have resolved [...] mild COVID-19 course. She was admitted to [facility] for other reasons - left lower [...] respiratory symptoms (e.g., cough, shortness of breath). RIALS SPECIALIST * Plan of Care - Breanna Rodriguez [...] care. Will continue to monitor patient's progress. RIALS SPECIALIST * Plan of Care - Jesse Waterman [...] in daily care. Will continue to monitor. RIALS SPECIALIST * Plan of Care - Jesse Waterman [...] in daily care. Will continue to monitor. RIALS SPECIALIST * Plan of Care - Fernanda Mcarthur MSW - 07/09/2020 3:39 PM CST JAYNE attempted to speak to the pt to see if they wanted to return to [facility]) but no response. JAYNE spoke with pt's dtr Martina #[phone] to discuss the above, and she was agreeable to pt returning to their facility. She tried calling the pt on their cell phone for a 3-way call, but the pt still did not answer. Dtr and JAYNE left a voicemail for the pt. JAYNE sent referral. JAYNE to follow. DIEGO Coley # [phone] RIALS SPECIALIST * ECIN Note - Fernanda Mcarthur MSW - 07/09/2020 3:30 PM CST Patient Information: OT Eval and Treat Last 72 Hours OT Evaluation Row Name 07/09/20 8220 Chart Reviewed Yes - Session Type Evaluation [...] Weight Bearing NWB - Type of Home Long-Term Facility - Home Layout One level - Home Access Level entry - Bathroom Toilet Standard - Home Mobility Equipment Wheeled walker;Wheelchair-manual - Level of [place] Independent with ADLs;Independent functional transfers;Independent with ambulation [...] this the discharge summary - OT Recommendation Long-Term Facility - OT Frequency 2-3x/wk - Treatment/Interventions [...] 07/09/2020 12:03 PM Progress Notes signed by Stefanski, Marion, OT , PT Eval and Treat Last 72 Hours PT Evaluation Row Name 07/09/20 0829 07/08/20 1216 Chart Reviewed Yes -KS -- Session Type Evaluation -KS -- Safe Environment Arm Band Checked;Notified RN;Session Completed Bedside;Patient found in Supine -KS-- Subjective Other Reluctant to participate -KS -- Subjective Comment I hurt -KS -- PT Missed Visit Reason -- MD/RN Hold;Procedure/testing/appointment pt to OR for AKA -KS Family/Caregiver Present No -KS -- Physical Therapy-Patient Goal None specifically stated -KS -- Precautions Fall risk -KS -- Weight Bearing Restrictions Yes -KS -- LLE Weight Bearing NWB -KS -- Type of Home Long-Term Facility -KS -- Home Layout One level -KS -- Home Access Level entry -KS -- Home Mobility Equipment Wheeled walker;Wheelchair-manual -KS -- Additional Comments pt reports typically using w/c for all mobility and is able to perform transfers independently -KS -- Level of [place] Independent with ADLs;Independent functional transfers;Independent with wheelchair -KS -- Lives With Other (Comment) SNF -KS -- Receives Help From Other (Comment) SNF staff -KS -- Driving No -KS -- Vocational/Occupation Retired -KS -- Fall within the last 6 months No -KS -- Activity Tolerance Comments Yasmin = -KS -- Pain Assessment 0-10 -KS -- Pain Score 8 -KS -- Pain Type Surgical pain -KS -- Pain Location Leg -KS -- Pain Orientation Left;Distal -KS -- Pain Interventions RN Notified RN notes administering medication prior to session -KS -- Arousal/Alertness Alert;Appropriate responses to stimuli -KS -- Orientation Oriented X4 (person, place, time, situation) -KS -- Following Commands Follows all commands and directions without difficulty -KS -- Safety Judgment Good awareness of safety precautions -KS -- Compliance/Behavior Easy to engage -KS -- Light Touch WFL in BUE/BLE -KS -- Numbness/Tingling No -KS -- Sensation Comments Skin intact throughout except LLE wrapped in ZACHARY bandage. 1+ BLE edema -KS -- Balance Yes -KS -- Static Sitting-Balance Support Bilateral upper extremity supported;Feet supported -KS -- Static Sitting-Sitting Surface Bed -KS -- Static Sitting-Level of Assistance Close supervision;Moderate assistance -KS -- Static Sitting-Comment/# of Minutes pt requires fluctuating SBA-mod A at EOB to maintain upright posture and balance -KS -- Static Standing-Balance Support Bilateral upper extremity supported -KS -- Static Standing-Standing Surface Floor -KS -- Static Standing-Level of Assistance Maximum assistance x2 -SC -- Static Standing-Comment/# of Minutes assist for balance and safety with hip extension -KS -- Bed Mobility Yes -KS -- Bed Mobility From 1 Supine -KS -- Bed Mobility Type 1 To -KS -- Bed Mobility to 1 Edge of bed -KS -- Level of Assistance 1 Maximum Assist x2 -KS -- Bed Mobility Comments 1 HOB elevated 30 degrees; assist for trunk elevation and hip negotiation toward EOB -KS -- Transfer Yes -KS -- Transfer From 1 Sit;Bed -KS -- Transfer Type 1 To and from -KS -- Transfer to 1 Stand -KS -- Technique 1 Stand to sit;Sit to stand -KS -- Transfer Device 1 Hand held assist -KS -- Transfer Level of Assistance 1 Maximum Assist x2 -KS -- Trials/Comments 1 x2 trials from EOB; assist for force production and hip/knee extension for upright posture -KS -- Transfer From 2 Sit;Bed -KS -- Transfer Type 2 To -KS -- Transfer to 2 Sit;Chair with arms -KS -- Technique 2 Stand pivot -KS -- Transfer Device 2 Hand held assist -KS -- Transfer Level of Assistance 2 Maximum Assist x2 -KS -- Trials/Comments 2 assist for -KS -- Ambulation No -KS -- Ambulation Comments 1 Unable to assess this date -KS -- Stairs No -KS -- RUE Assessment X -KS -- R Shoulder Flexion 100 Degrees -KS -- LUE Assessment X -KS -- L Shoulder Flexion 90 Degrees -KS -- RLE Assessment WFL -KS -- LLE Assessment X -KS -- L Hip Flexion 3/5 -KS -- L Hip ABduction 3/5 -KS -- Equipment Use Comments Gait belt in use with all OOB mobility -KS -- Other PT Comments Pt very self-limiting and very particular. She responds well to strict commands -KS -- How much difficulty does the patient have: Turning over in bed 2 -KS -- How much difficulty does the patient currently have: Sitting down and standing up from a chair witharms? 2 -KS -- How much difficulty does the patient [...] Climbing 3-5 steps with a railing? 1 -KS -- Total 6 Click Score (range 6-24) 10 -KS -- Score Interpretation 28.13 -KS -- Prognosis Fair -KS -- Problem List Gait deviations;Decreased strength;Decreased endurance;Impaired balance;Decreased mobility;Obesity;Orthopedic restrictions;Pain -KS -- Problem List Comments Pt s/p L AKA results in above listed activity deficits and impairments which prevent full participation in home and community mobility. -KS -- Barriers to Discharge Current Mobility Status;Decreased safety awareness -KS -- Plan Plan of care initiated;If this is the last note, consider this the discharge summary -KS -- PT Recommendation/Plan Long-Term Facility -KS -- PT Recommendation/Plan Comments back to facility -KS -- PT Frequency Daily 6-7x/week -KS Monitor status -KS Treatment/Interventions Balance Training;Bed mobility;Endurance training;Equipment eval/education;Functional activity;Functional transfer training;Gait training;Neuromuscular re-education;Parent/caregiver training and education;Range of motion;Stair training;Strengthening;Therapeutic activity;Therapeutic exercise;Transfer training -KS -- PT Evaluation Complete Yes -KS -- User Garcia (r) = Recorded By, (t) = Taken By, (c) = Cosigned By Initials Name Effective Dates [place] Gilberto Armstrong, PT 06/26/19 - PT TREATMENT (last 168 hours) PT Treatment No documentation. PT Notes (Notes from 07/07/20 through 07/09/20) 07/09/2020 10:16 AM Progress Notes signed by Gilberto Armstrong, PT RIALS SPECIALIST * Plan of Care - Bernardo Burgess [...] the Shift: Pain control, Stable VS Summary: Pepper's VS are stable and is requiring PRN pain meds. RIALS SPECIALIST * Assessment & Plan Note - Obed Martinez MD - 07/08/2020 4:27 PM MATERIALS SPECIALIST Associated Problem(s): Hyponatremia - Pt with history of hypoNa (per report, baseline mid 120- low 130s). - Na 126 on admission. No AMS. - TSH wnl. Cortisol 17. - Na stable. RIALS SPECIALIST RIALS SPECIALIST * Assessment & Plan Note - Obed Martinez MD - 07/08/2020 4:27 PM MATERIALS SPECIALIST Associated Problem(s): Chronic respiratory failure (HCC) - Per pt 2/2 COPD. No sings of acute exacerbation. - Continue home flonase - Continue home albuterol prn - On home is on 4L O2 at baseline RIALS SPECIALIST * Assessment & Plan Note - Obed Martinez MD - 07/08/2020 4:27 PM MATERIALS SPECIALIST Associated Problem(s): Open displaced comminuted fracture of shaft of left tibia, type IIIA, IIIB, or IIIC - See above. RIALS SPECIALIST * Assessment & Plan Note - Obed Martinez MD - 07/08/2020 4:26 PM MATERIALS SPECIALIST Associated Problem(s): Moderate essential hypertension - Follows with cardiology. - Continue home amlodipine, metoprolol, lasix, spironolactone. - Switched olmesartan to losartan as not on formulary. RIALS SPECIALIST * Assessment & Plan Note - Obed Martinez MD - 07/08/2020 4:25 PM MATERIALS SPECIALIST Associated Problem(s): COVID-19 - Patient tested positive for COVID-19 on 06/21/20 at her fdc ([facility] in [place], [place]). - She reports her only symptom [...] of her positive test from her SNF. RIALS SPECIALIST RIALS SPECIALIST RIALS SPECIALIST RIALS SPECIALIST RIALS SPECIALIST * Assessment & Plan Note - Obed Martinez MD - 07/08/2020 4:21 PM MATERIALS SPECIALIST Associated Problem(s): Left lower extremity infection History [...] left lower extremity. - PM&R consulted. - Loan Operations Specialist placed stump raise driller / ampushield. Awaiting delivery of limb protector. - Patient not interested in prosthesis at this time. - PT/OT consults. - Plan for patient to return to her prior SNF when medically stable with ongoing PT/OT. - ID and Ortho following. RIALS SPECIALIST RIALS SPECIALIST RIALS SPECIALIST RIALS SPECIALIST RIALS SPECIALIST RIALS SPECIALIST * Op Note - Jacobo Shoemaker MD - 07/08/2020 11:58 AM MATERIALS SPECIALIST OPERATIVE REPORT Date of Surgery: 07/08/2020 Attending [...] consent was obtained. DESCRIPTION OF PROCEDURE: Celestina Ansair was brought to the preoperative area. The [...] [facility] complication[facility]. POSTOPERATIVE PLAN: 1. Non [...] the case, I was immediately available. Jacobo Shoemaekr MD MSc RIALS SPECIALIST * Brief Op Note - Ernesto Devine MD PhD - 07/08/2020 11:58 AM MATERIALS SPECIALIST Operative Progress Note Surgical Team: Surgeon(s) and Role: * Jacobo Shoemaker MD - Primary * Ernesto Devine MD PhD - Resident - Assisting * Huang Martin MD - Resident - Assisting Anesthesiologist: Monroe Mariscal MD SOFTWARE WRITER: Efren Cobb CRNA Traffic Or System Dispatcher: Malena Lara RN; Hernando Henriquez RN; Gumaro Hugo RN Preflight Inspector: Julissa Aguilar RT Scrub Relief: Joe Murillo [...] Jacobo Shoemaker MD at 07/09/2020 6:36 AM MATERIALS SPECIALIST RIALS SPECIALIST RIALS SPECIALIST * Assessment & Plan Note - Vianney Dia MD - 07/07/2020 6:26 PM MATERIALS SPECIALIST Associated Problem(s): Moderate essential hypertension - Follows with cardiology - Continue home amlodipine, metoprolol, lasix, spironolactone - Switched olmesartan to losartan as not on formulary RIALS SPECIALIST * Assessment & Plan Note - Vianney Dia MD - 07/07/2020 6:26 PM MATERIALS SPECIALIST Associated Problem(s): Chronic respiratory failure (HCC) - Per pt 2/2 COPD. No sings of acute exacerbation. - Continue home flonase - Continue home albuterol prn - On baseline 4L O2 RIALS SPECIALIST * Assessment & Plan Note - Vianney Dia MD - 07/07/2020 6:25 PM MATERIALS SPECIALIST Associated Problem(s): Hyponatremia - Pt with history of hypoNa (per report, baseline mid 120- low 130s). - Na 126 on admission. No AMS. - TSH wnl. Cortisol 17. - Diuretics were held and Na improved to 132. Restart when able. RIALS SPECIALIST * Assessment & Plan Note - Vianney Dia MD - 07/07/2020 6:22 PM MATERIALS SPECIALIST Associated Problem(s): COVID-19 - Pt states she [...] up. - COVID isolation per hospital protocol RIALS SPECIALIST * Assessment & Plan Note - Vianney Dia MD - 07/07/2020 6:17 PM MATERIALS SPECIALIST Associated Problem(s): Left lower extremity infection - [...] - PT/OT - Nonweightbearing left lower extremity RIALS SPECIALIST RIALS SPECIALIST * Subjective & Objective - Vianney Dia MD - 07/07/2020 6:11 PM MATERIALS SPECIALIST Daily Progress Note Division of Hospital Medicine COVID Unit Name: Celestina Ansari Today: July 07, 2020 : 1950 Age: 69 y.o. female Admit: 07/05/2020 Bed: [id number] Subjective Chief complaint: L leg infection c/f [...] 132. Restart when able. Chronic respiratory failure (CMS/[facility]) Assessment & Plan - Per pt 2/2 [...] SCD. Holding enoxaparin for procedure. Please call [phone] with any questions or concerns from 7am-7pm. Please call the cross cover phone after hours. Vianney Caballero MD 07/07/2020 6:27 PM RIALS SPECIALIST * Op Note - Ethel Amaro MD [...] for non critical portions of the case. RIALS SPECIALIST * Brief Op Note - Brittany Jackson MD - 07/06/2020 5:38 PM CST Operative Progress Note Surgical Team: Surgeon(s) and Role: * Ethel Amaro MD - Primary * Brittany Jackson MD - Resident - Assisting Anesthesiologist: Cas Reid MD SOFTWARE WRITER: Juan Whiteside CRNA Traffic Or System Dispatcher: Ce Kam RN Traffic Or System Dispatcher Relief: Frederick Nicole RN Scrub: Manpreet Aguilar [...] Ethel Amaro MD at 07/07/2020 7:01 PM MATERIALS SPECIALIST RIALS SPECIALIST RIALS SPECIALIST * Hospital Course - Arianna Huynh MD - 07/06/2020 4:42 PM MATERIALS SPECIALIST Left leg infection- subcutaneous infection vs OM [...] Continued home ativan 0.5mg q6h PRN, buspar? RIALS SPECIALIST RIALS SPECIALIST RIALS SPECIALIST RIALS SPECIALIST RIALS SPECIALIST RIALS SPECIALIST RIALS SPECIALIST RIALS SPECIALIST RIALS SPECIALIST RIALS SPECIALIST * Assessment & Plan Note - Og Cintron MD - 07/06/2020 11:58 AM CSTAssociated Problem(s): COVID-19 - recommend getting records from SNF to establish exact date of first (+) COVID test. - pt likely has completed days of isolation. RIALS SPECIALIST * Assessment & Plan Note - Og [...] contact the ID [employer] Team PA at [phone] (desk) or [phone] (work cell) M-F, 7-3; or the Attending at [phone] (pager) with any questions or concerns. After hours, the ID fellow containers sales representative can be reached at [phone]. RIALS SPECIALIST RIALS SPECIALIST RIALS SPECIALIST RIALS SPECIALIST RIALS SPECIALIST RIALS SPECIALIST RIALS SPECIALIST RIALS SPECIALIST RIALS SPECIALIST RIALS SPECIALIST RIALS SPECIALIST RIALS SPECIALIST RIALS SPECIALIST * Assessment & Plan Note - Vianney Dia MD - 07/06/2020 7:34 AM MATERIALS SPECIALIST Associated Problem(s): UTI (urinary tract infection) (Deleted) - UA suggestive of UTI. Bacteria +, Yeast + - Urcx and Bcx pending - Start antimicrobials post-OR RIALS SPECIALIST RIALS SPECIALIST * Assessment & Plan Note - Vianney Dia MD - 07/06/2020 7:33 AM MATERIALS SPECIALIST Associated Problem(s): COVID-19 - Per report, pt [...] SpO2 - COVID isolation per hospital protocol RIALS SPECIALIST * Assessment & Plan Note - Vianney Dia MD - 07/06/2020 7:33 AM MATERIALS SPECIALIST Associated Problem(s): Moderate essential hypertension - Follows with cardiology - Continue home amlodipine, metoprolol, lasix, spironolactone - Switched olmesartan to losartan as not on formulary RIALS SPECIALIST RIALS SPECIALIST * Assessment & Plan Note - Vianney Dia MD - 07/06/2020 7:33 AM MATERIALS SPECIALIST Associated Problem(s): Chronic respiratory failure (HCC) - Per pt 2/2 COPD. No sings of acute exacerbation. - Continue home flonase - Continue home albuterol prn - On baseline 4L O2 RIALS SPECIALIST * Assessment & Plan Note - Vianney Dia MD - 07/06/2020 7:27 AM MATERIALS SPECIALIST Associated Problem(s): Hyponatremia - Pt with history of hypoNa (per report, baseline mid 120- low 130s). - Na 126 on admission. No AMS. - TSH wnl. Cortisol 17. - NS IVF - CTM Na RIALS SPECIALIST RIALS SPECIALIST * Assessment & Plan Note - Vianney Dia MD - 07/06/2020 7:23 AM MATERIALS SPECIALIST Associated Problem(s): Left lower extremity infection - [...] 6 wk course of antibiotics. Appreciate recs. RIALS SPECIALIST RIALS SPECIALIST RIALS SPECIALIST * Subjective & Objective - Vianney Dia MD - 07/06/2020 7:14 AM MATERIALS SPECIALIST Daily Progress Note Division of Hospital Medicine COVID Unit Name: Celestina Ansari Today: July 06, 2020 : 1950 Age: 69 y.o. female Admit: 07/05/2020 Bed: [id number] Subjective Chief complaint: L leg infection c/f [...] seen in setting of infection. Dictated by: dAithya Terry M.D. The radiology attending physician has [...] - Start antimicrobials post-OR Chronic respiratory failure (CMS/[facility]) Assessment & Plan - Per pt 2/2 [...] SCD. Holding enoxaparin for procedure. Please call [phone] with any questions or concerns from 7am-7pm. Please call the [facility] cover phone after hours. Vianney Caballero MD 07/06/2020 3:10 PM RIALS SPECIALIST RIALS SPECIALIST * Plan of Care - Lili Marroquin [...] care. Will continue to monitor patient's progress. RIALS SPECIALIST * Assessment & Plan Note - Vianney Dia MD - 07/05/2020 6:01 PM MATERIALS SPECIALIST Associated Problem(s): Closed displaced bimalleolar fracture of right lower leg - As elsewhere RIALS SPECIALIST * Assessment & Plan Note - Vianney Dia MD - 07/05/2020 6:00 PM MATERIALS SPECIALIST Associated Problem(s): Chronic respiratory failure (HCC) - Per pt 2/2 COPD. No sings of acute exacerbation. - Continue home flonase - Continue home albuterol prn - On baseline 4L O2 RIALS SPECIALIST RIALS SPECIALIST * Plan of Care - Janis Crabtree RN - 07/05/2020 6:00 PM MATERIALS SPECIALIST Goals: Clinical Goals for the Shift: admission [...] orders. Will continue to monitor patient's progress. RIALS SPECIALIST * Assessment & Plan Note - Vianney Dia MD - 07/05/2020 5:58 PM MATERIALS SPECIALIST Associated Problem(s): Open displaced comminuted fracture of shaft of left tibia, type IIIA, IIIB, or IIIC - L tibia and R ankle fractures s/p BRENNA in 06/2020 - Complicated by poor healing and multiple infections of L anterior leg wound - Pt of Dr. Shoemaker RIALS SPECIALIST * Assessment & Plan Note - Vianney Dia MD - 07/05/2020 5:57 PM MATERIALS SPECIALIST Associated Problem(s): Moderate essential hypertension - Follows with cardiology - Continue home amlodipine, metoprolol, lasix, spironolactone - Switch olmesartan to losartan as not on formulary RIALS SPECIALIST * Assessment & Plan Note - Vianney Dia MD - 07/05/2020 4:16 PM MATERIALS SPECIALIST Associated Problem(s): Left lower extremity infection - [...] threshold to start antibiotics. - Consult ortho RIALS SPECIALIST RIALS SPECIALIST RIALS SPECIALIST RIALS SPECIALIST * Assessment & Plan Note - Vianney Dia MD - 07/05/2020 4:14 PM MATERIALS SPECIALIST Associated Problem(s): COVID-19 - Per report, pt [...] SpO2 - COVID isolation per hospital protocol RIALS SPECIALIST RIALS SPECIALIST * Subjective & Objective - Vianney Dia MD - 07/05/2020 4:13 PM MATERIALS SPECIALIST History and Physical Division of Hospital Medicine [...] vancomycin x 1 and was transferred to [facility]. Also per report, pt was hyponatremic Na 123 (baseline 126-low 130s) but lab results not included in [facility] paper chart. Of note, pt recently diagnosed with COVID at [facility] (per report 2 days prior to admission). Pt states she was having a cough and that at the SNF they regularly test patients. Denies fevers, chills, shortness of breath, abd pain, diarrhea, nausea, loss of smell or taste. She satting well on baseline 4LNC. I reviewed pt's Epic chart and paper chart from [facility]. Past Medical History: Diagnosis Date [...] ??? Iodine Unknown ??? Latex Unknown ??? [place]-3 Fatty Acids Unknown ??? Other Unknown seafood [...] Plan - As elsewhere Chronic respiratory failure ([facility]) Assessment & Plan - Per pt 2/2 [...] GM Sodium DVT Prophylaxis: lovenox Please call [phone] with any questions or concerns from 7 am to 7pm. Call the cross cover phone after hours. Vianney Caballero MD 07/05/2020 6:02 PM RIALS SPECIALIST RIALS SPECIALIST RIALS SPECIALIST RIALS SPECIALIST documented in this encounter Plan of Treatment Scheduled Orders Name Type Priority Associated Diagnoses Orde r Schedule Urinalysis reflex to microscopic and culture Urine Microbiology Routine Once for 1 Occurrences starting 07/05/2020 until 07/05/2020 documented as of this encounter Procedures Procedure Name Priority Date/Time Associated Diagnosis Comments DIFFERENTIAL AUTO Timed 07/12/2020 9:3 8 AM MATERIALS SPECIALIST CBC WITH AUTO DIFFERENTIAL Timed 07/12/2020 9:38 AM MATERIALS SPECIALIST BASIC METABOLIC PANEL Timed 07/12/2020 9:38 AM MATERIALS SPECIALIST DIFFERENTIAL AUTO Routine 07/11/2020 5:3 1 PM MATERIALS SPECIALIST CBC WITH AUTO DIFFERENTIAL Routine 07/11/2020 5:31 PM MATERIALS SPECIALIST MAGNESIUM Routine 07/11/2020 5:31 PM MATERIALS SPECIALIST VANCOMYCIN LEVEL TROUGH Timed 07/11/20 20 5:31 PM MATERIALS SPECIALIST COMPREHENSIVE METABOLIC PANEL Routine 07/11/2020 5:31 PM MATERIALS SPECIALIST DIFFERENTIAL AUTO Routine 07/10/2020 9:0 4 PM MATERIALS SPECIALIST CBC WITH AUTO DIFFERENTIAL Routine 07/10/2020 9:04 PM MATERIALS SPECIALIST COMPREHENSIVE METABOLIC PANEL Routine 07/10/2020 9:04 PM MATERIALS SPECIALIST DIFFERENTIAL AUTO Routine 07/09/2020 9:0 3 PM MATERIALS SPECIALIST CBC WITH AUTO DIFFERENTIAL Routine 07/09/2020 9:03 PM MATERIALS SPECIALIST COMPREHENSIVE METABOLIC PANEL Routine 07/09/2020 9:03 PM MATERIALS SPECIALIST POCT GLUCOSE DEVICE Routine 07/09/2020 9 :02 PM MATERIALS SPECIALIST POCT GLUCOSE DEVICE Routine 07/09/2020 4 :34 PM MATERIALS SPECIALIST DIFFERENTIAL AUTO Routine 07/08/2020 5:5 7 PM MATERIALS SPECIALIST CBC WITH AUTO DIFFERENTIAL Routine 07/08/2020 5:57 PM MATERIALS SPECIALIST BLOOD CULTURE STAT 07/08/2020 5:57 PM MATERIALS SPECIALIST BLOOD CULTURE STAT 07/08/2020 5:57 PM MATERIALS SPECIALIST VANCOMYCIN LEVEL TROUGH Timed 07/08/20 20 5:57 PM MATERIALS SPECIALIST COMPREHENSIVE METABOLIC PANEL Routine 07/08/2020 5:57 PM MATERIALS SPECIALIST TISSUE AEROBIC AND ANAEROBIC CULTURE AND GRAM STAIN Routine 07/08/2020 1:18 PM MATERIALS SPECIALIST FL FLUOROSCOPY < 1 HOUR (STATISTICAL ONLY) IP Routine 07/08/2020 12:52 PM MATERIALS SPECIALIST SURGICAL PATHOLOGY Routine 07/08/2020 12:18 PM MATERIALS SPECIALIST Leg skin lesion, left AMPUTATION ABOVE KNEE 07/08/2020 11:14 AM MATERIALS SPECIALIST Leg skin lesion, left XR TIBIA FIBULA LEFT 2 VIEWS IP Routine 07/08/2020 1:04 AM MATERIALS SPECIALIST ECG 12-LEAD Routine 07/07/2020 11:59 PM MATERIALS SPECIALIST DIFFERENTIAL AUTO Routine 07/07/2020 10:06 PM MATERIALS SPECIALIST CBC WITH AUTO DIFFERENTIAL Routine 07/07/2020 10:06 PM MATERIALS SPECIALIST TYPE AND SCREEN STAT 07/07/2020 10:06 PM MATERIALS SPECIALIST COMPREHENSIVE METABOLIC PANEL Routine 07/07/2020 10:06 PM MATERIALS SPECIALIST CBC WITH AUTO DIFFERENTIAL Routine 07/06/2020 11:07 PM MATERIALS SPECIALIST MANUAL DIFFERENTIAL Routine 07/06/2020 11:07 PM MATERIALS SPECIALIST COMPREHENSIVE METABOLIC PANEL Routine 07/06/2020 11:07 PM MATERIALS SPECIALIST FL FLUOROSCOPY < 1 HOUR IP Routine 07/06/20 20 6:10 PM MATERIALS SPECIALIST TISSUE AEROBIC AND ANAEROBIC CULTURE AND GRAM STAIN Routine 07/06/2020 6:07 PM MATERIALS SPECIALIST MYCOLOGY (FUNGAL) CULTURE Routine 07/06/2020 6:07 PM MATERIALS SPECIALIST MYCOBACTERIOLOGY AFB CULTURE Routine 07/06/2020 6:07 PM MATERIALS SPECIALIST TISSUE AEROBIC AND ANAEROBIC CULTURE AND GRAM STAIN Routine 07/06/2020 5:59 PM MATERIALS SPECIALIST MYCOLOGY (FUNGAL) CULTURE Routine 07/06/2020 5:59 PM MATERIALS SPECIALIST MYCOBACTERIOLOGY AFB CULTURE Routine 07/06/2020 5:59 PM MATERIALS SPECIALIST TISSUE AEROBIC AND ANAEROBIC CULTURE AND GRAM STAIN Routine 07/06/2020 5:56 PM MATERIALS SPECIALIST MYCOLOGY (FUNGAL) CULTURE Routine 07/06/2020 5:56 PM MATERIALS SPECIALIST MYCOBACTERIOLOGY AFB CULTURE Routine 07/06/2020 5:56 PM MATERIALS SPECIALIST IRRIGATION AND DEBRIDEMENT ? TIBIA 07/06/2020 4:49 PM MATERIALS SPECIALIST Leg skin lesion, left REMOVAL HARDWARE - TIBIA/FIBULA 07/06/2020 4:49 PM MATERIALS SPECIALIST Leg skin lesion, left CT LOWER LEG CALF LEFT WO CONTRAST ED Urgent/IP Urgent 07/06/2020 6:42 AM MATERIALS SPECIALIST URINALYSIS AND REFLEX TO MICROSCOPIC AND CULTURE STAT 07/05/2020 11:19 PM MATERIALS SPECIALIST SODIUM, URINE, RANDOM Routine 07/05/2020 11:19 PM MATERIALS SPECIALIST OSMOLALITY, URINE Routine 07/05/2020 11:19 PM MATERIALS SPECIALIST URINALYSIS, MICROSCOPIC ONLY STAT 07/05/2020 11:19 PM MATERIALS SPECIALIST URINE CULTURE STAT 07/05/2020 11:19 PM MATERIALS SPECIALIST THYROID FUNCTION CASCADE Routine 07/05/2020 9:22 PM MATERIALS SPECIALIST BLOOD CULTURE Routine 07/05/2020 9:22 PM MATERIALS SPECIALIST BLOOD CULTURE Routine 07/05/2020 9:22 PM MATERIALS SPECIALIST APTT Routine 07/05/2020 9:22 PM MATERIALS SPECIALIST TYPE AND SCREEN Timed 07/05/2020 9:22 PM MATERIALS SPECIALIST OSMOLALITY, BLOOD Routine 07/05/2020 9:2 2 PM MATERIALS SPECIALIST CORTISOL Timed 07/05/2020 9:22 PM MATERIALS SPECIALIST ECG 12-LEAD Routine 07/05/2020 7:29 PM MATERIALS SPECIALIST XR TRANSFER OF OUTSIDE FILMS Routine 07/05/2020 6:15 PM MATERIALS SPECIALIST Diagnosis unknown LACTATE Routine 07/05/2020 6:13 PM MATERIALS SPECIALIST DIFFERENTIAL AUTO Routine 07/05/2020 6:1 3 PM MATERIALS SPECIALIST CBC WITH AUTO DIFFERENTIAL Routine 07/05/2020 6:13 PM MATERIALS SPECIALIST ERYTHROCYTE SEDIMENTATION RATE Routine 07/05/2020 6:13 PM MATERIALS SPECIALIST PROTIME-INR Routine 07/05/2020 6:13 PM MATERIALS SPECIALIST D-DIMER, QUANTITATIVE Routine 07/05/2020 6:13 PM MATERIALS SPECIALIST CRP (ACUTE PHASE) Routine 07/05/2020 6:1 3 PM MATERIALS SPECIALIST PHOSPHORUS Routine 07/05/2020 6:13 PM MATERIALS SPECIALIST MAGNESIUM Routine 07/05/2020 6:13 PM MATERIALS SPECIALIST HEMOGLOBIN A1C Routine 07/05/2020 6:13 PM MATERIALS SPECIALIST HEPATIC FUNCTION PANEL Routine 0 6:13 PM MATERIALS SPECIALIST BASIC METABOLIC PANEL Routine 07/05/2020 6:13 PM MATERIALS SPECIALIST XR CHEST 1 VIEW IP Routine 07/05/2020 5:22 PM MATERIALS SPECIALIST COVID-19 CORONAVIRUS RNA Routine 06/21/2020 documented in this encounter Results * (ABNORMAL) Differential, auto (07/12/2020 9:38 AM MATERIALS SPECIALIST) Neutrophil abs 8.2(H) 1.7 - 6.5 K/cumm [facility] Imm gran abs 0.6(H) 0.0 - 0.1 K/cumm [facility] Lymphocyte abs 2.5 0.8 - 3.3 K/cumm [facility] Monocyte abs 1.2(H) 0.2 - 0.8 K/cumm [facility] Eosinophil abs 0.2 0.0 - 0.5 K/cumm [facility] Basophil abs 0.1 0.0 - 0.1 K/cumm [facility] Neutrophil pct 63.7 % [facility] [place] Comment: Interpretive Data Percent cell count reference ranges are not reported, since discordance with absolute values may lead to misinterpretation of CBC data. Current Interpretive Data was last revised on 2017. Imm gran pct 4.7 % [facility] Comment: Interpretive Data Percent cell count reference ranges are not reported, since discordance with absolute values may lead to misinterpretation of CBC data. Current Interpretive Data was last revised on 2017. Lymphocyte pct 19.6 % [facility] Comment: Interpretive Data Percent cell count reference ranges are not reported, since discordance with absolute values may lead to misinterpretation of CBC data. Current Interpretive Data was last revised on 2017. Monocyte pct 9.5 % [facility] Comment: Interpretive Data Percent cell count reference ranges are not reported, since discordance with absolute values may lead to misinterpretation of CBC data. Current Interpretive Data was last revised on 2017. Eosinophil pct 1.9 % [facility] Comment: Interpretive Data Percent cell count reference ranges are not reported, since discordance with absolute values may lead to misinterpretation of CBC data. Current Interpretive Data was last revised on 2017. Basophil pct 0.6 % [facility] Comment: Interpretive Data Percent cell count reference ranges are not reported, since discordance with absolute values may lead to misinterpretation of CBC data. Current Interpretive Data was last revised on 2017. Blood specimen (specimen) 07/12/2020 9:38 AM MATERIALS SPECIALIST 07/12/2020 9:57 AM MATERIALS SPECIALIST Christopher Jay MD LAB BLOOD ORDERABLES Ellyn adams Result [facility] [facility] [place] [address] * (ABNORMAL) CBC with auto differential (07/12/2020 9:38 AM MATERIALS SPECIALIST) WBC 12.9(H) 3.8 - 9.9 K/cumm [facility] Hgb 8.7(L) 11.9 - 15.5 g/dL [facility] Hct 26.3(L) 35.6 - 45.5 % [facility] Plt 322 150 - 400 K/cumm [facility] MPV 9.5 9.1 - 12.3 fL [facility] RBC 2.73(L) 3.90 - 5.20 M/cumm [facility] MCV 96.3 81.3 - 96.4 fL [facility] MCH 31.9 27.1 - 33.3 pg [facility] MCHC 33.1 32.3 - 35.7 g/dL [facility] RDW CV 12.2 11.1 - 14.9 % [facility] RDW SD 42.4 35.7 - 48.1 fL [facility] NRBC abs 0.00 0.00 - 0.01 K/cumm [facility] Blood specimen (specimen) 07/12/2020 9:38 AM MATERIALS SPECIALIST 07/12/2020 9:57 AM MATERIALS SPECIALIST us Christopher Jay MD LAB BLOOD ORDERABLES Ellyn adams Result [facility] Department [place] [address] * (ABNORMAL) Basic metabolic panel (07/12/2020 9:38 AM MATERIALS SPECIALIST) Sodium 129(L) 135 - 145 mmol/L [facility] Potassium, pl 5.1(H) 3.3 - 4.9 mmol/L [facility] Chloride 92(L) 97 - 110 mmol/L [facility] CO2 28 22 - 32 mmol/L [facility] Anion gap 9 2 - 15 mmol/L [facility] BUN 10 8 - 25 mg/dL [facility] Creatinine 0.64 0.60 - 1.10 mg/dL [facility] Glucose 169 70 - 199 mg/dL [facility] Comment: Interpretive Data Fasting glucose >/= [...] 2017. Calcium 8.8 8.5 - 10.3 mg/dL [facility] Blood specimen (specimen) 07/12/2020 9:38 AM MATERIALS SPECIALIST 07/12/2020 9:57 AM MATERIALS SPECIALIST Christopher Jay MD LAB BLOOD ORDERABLES Ellyn l Result Performing Organization Address City/[facility] Co de Phone Number [facility] [place] [address] * Magnesium (07/11/2020 5:31 PM MATERIALS SPECIALIST) Pathologist [facility] Magnesium 2.0 1.4 - 2.5 mg/dL [facility] Blood specimen (specimen) 07/11/2020 5:31 PM MATERIALS SPECIALIST 07/11/2020 7:04 PM MATERIALS SPECIALIST Obed Martinez MD LAB BLOOD ORDERABLES Fi nal Result Performing Organization Address [facility] de Phone Number [facility] [place] [address] * (ABNORMAL) Differential, auto (07/11/2020 5:31 PM MATERIALS SPECIALIST) Neutrophil abs 8.4(H) 1.7 - 6.5 K/cumm [facility] Imm gran abs 0.7(H) 0.0 - 0.1 K/cumm [facility] Lymphocyte abs 2.3 0.8 - 3.3 K/cumm [facility] Monocyte abs 1.4(H) 0.2 - 0.8 K/cumm [facility] Eosinophil abs 0.3 0.0 - 0.5 K/cumm [facility] Basophil abs 0.1 0.0 - 0.1 K/cumm [facility] Neutrophil pct 64.1 % [facility] Comment: Interpretive Data Percent cell count reference ranges are not reported, since discordance with absolute values may lead to misinterpretation of CBC data. Current Interpretive Data was last revised on 2017. Imm gran pct 5.3 % [facility] Comment: Interpretive Data Percent cell count reference ranges are not reported, since discordance with absolute values may lead to misinterpretation of CBC data. Current Interpretive Data was last revised on 2017. Lymphocyte pct 17.7 % [facility] Comment: Interpretive Data Percent cell count reference ranges are not reported, since discordance with absolute values may lead to misinterpretation of CBC data. Current Interpretive Data was last revised on 2017. Monocyte pct 10.4 % [facility] Comment: Interpretive Data Percent cell count reference ranges are not reported, since discordance with absolute values may lead to misinterpretation of CBC data. Current Interpretive Data was last revised on 2017. Eosinophil pct 2.1 % [facility] Comment: Interpretive Data Percent cell count reference ranges are not reported, since discordance with absolute values may lead to misinterpretation of CBC data. Current Interpretive Data was last revised on 2017. Basophil pct 0.4 % [facility] Comment: Interpretive Data Percent cell count reference ranges are not reported, since discordance with absolute values may lead to misinterpretation of CBC data. Current Interpretive Data was last revised on 2017. Blood specimen (specimen) 07/11/2020 5:31 PM MATERIALS SPECIALIST 07/11/2020 7:04 PM MATERIALS SPECIALIST us Vianney Caballero MD LAB BLOOD ORDERABLES Fin al Result [facility] Department [place] [address] * (ABNORMAL) CBC with auto differential (07/11/2020 5:31 PM MATERIALS SPECIALIST) WBC 13.0(H) 3.8 - 9.9 K/cumm [facility] Hgb 7.6(L) 11.9 - 15.5 g/dL [facility] Hct 24.4(L) 35.6 - 45.5 % [facility] Plt 351 150 - 400 K/cumm [facility] MPV 9.9 9.1 - 12.3 fL [facility] RBC 2.54(L) 3.90 - 5.20 M/cumm [facility] MCV 96.1 81.3 - 96.4 fL [facility] MCH 29.9 27.1 - 33.3 pg [facility] MCHC 31.1(L) 32.3 - 35.7 g/dL [facility] RDW CV 12.2 11.1 - 14.9 % [facility] RDW SD 42.8 35.7 - 48.1 fL [facility] NRBC abs 0.00 0.00 - 0.01 K/cumm [facility] Blood specimen (specimen) 07/11/2020 5:31 PM MATERIALS SPECIALIST 07/11/2020 7:04 PM MATERIALS SPECIALIST us Obed Martinez MD LAB BLOOD ORDERABLES Fi nal Result [facility] Department [place] [address] * (ABNORMAL) Comprehensive metabolic panel (07/11/2020 5:31 PM MATERIALS SPECIALIST) Sodium 128(L) 135 - 145 mmol/L [facility] Potassium, pl 5.2(H) 3.3 - 4.9 mmol/L [facility] Chloride 92(L) 97 - 110 mmol/L [facility] CO2 28 22 - 32 mmol/L [facility] Anion gap 8 2 - 15 mmol/L [facility] BUN 11 8 - 25 mg/dL [facility] Creatinine 0.70 0.60 - 1.10 mg/dL [facility] Glucose 100 70 - 199 mg/dL [facility] Comment: Interpretive Data Fasting glucose >/= [...] 2017. Calcium 8.8 8.5 - 10.3 mg/dL [facility] Bilirubin, total 0.2 0.1 - 1.2 mg/dL [facility] Protein, pl 6.7 6.5 - 8.5 g/dL [facility] Albumin 2.6(L) 3.5 - 5.0 g/dL [facility] Alk phos 134(H) 40 - 130 Units/L [facility] ALT 16 7 - 45 Units/L [facility] AST 31 10 - 45 Units/L [facility] Blood specimen (specimen) 07/11/2020 5:31 PM MATERIALS SPECIALIST 07/11/2020 7:04 PM MATERIALS SPECIALIST Obed Martinez MD LAB BLOOD ORDERABLES Fi nal Result Performing Organization Address [facility] de Phone Number [facility] Department [place] [address] * (ABNORMAL) Vancomycin, trough Please draw trough before tonight's dose. Can draw all AM labs at that time. Thanks! (07/11/2020 5:31 PM MATERIALS SPECIALIST) Pathologist [facility] Vancomycin trough 8.6(L) 10.0 - 20.9 mcg/mL [facility] Blood specimen (specimen) 07/11/2020 5:31 PM MATERIALS SPECIALIST 07/11/2020 6:57 PM MATERIALS SPECIALIST Narrative [facility] - 07/11/2020 7:25 PM MATERIALS SPECIALIST Please draw trough before tonight's dose. Can draw all AM labs at that time. Thanks! Obed Martinez MD LAB BLOOD ORDERABLES Fi nal Result Performing Organization Address [facility]/ZIP Co de Phone Number [facility] Department [place] [address] * (ABNORMAL) Differential, auto (07/10/2020 9:04 PM MATERIALS SPECIALIST) Neutrophil abs 12.6(H) 1.7 - 6.5 K/cumm [facility] Imm gran abs 1.0(H) 0.0 - 0.1 K/cumm [facility] Lymphocyte abs 4.3(H) 0.8 - 3.3 K/cumm [facility] Monocyte abs 4.7(H) 0.2 - 0.8 K/cumm [facility] Eosinophil abs 0.1 0.0 - 0.5 K/cumm [facility] Basophil abs 0.1 0.0 - 0.1 K/cumm [facility] Neutrophil pct 55.4 % [facility] Comment: Interpretive Data Percent cell count reference ranges are not reported, since discordance with absolute values may lead to misinterpretation of CBC data. Current Interpretive Data was last revised on 2017. Imm gran pct 4.2 % [facility] Comment: Interpretive Data Percent cell count reference ranges are not reported, since discordance with absolute values may lead to misinterpretation of CBC data. Current Interpretive Data was last revised on 2017. Lymphocyte pct 18.9 % [facility] Comment: Interpretive Data Percent cell count reference ranges are not reported, since discordance with absolute values may lead to misinterpretation of CBC data. Current Interpretive Data was last revised on 2017. Monocyte pct 20.6 % [facility] Comment: Interpretive Data Percent cell count reference ranges are not reported, since discordance with absolute values may lead to misinterpretation of CBC data. Current Interpretive Data was last revised on 2017. Eosinophil pct 0.4 % [facility] Comment: Interpretive Data Percent cell count reference ranges are not reported, since discordance with absolute values may lead to misinterpretation of CBC data. Current Interpretive Data was last revised on 2017. Basophil pct 0.5 % [facility] Comment: Interpretive Data Percent cell count reference ranges are not reported, since discordance with absolute values may lead to misinterpretation of CBC data. Current Interpretive Data was last revised on 2017. Blood specimen (specimen) 07/10/2020 9:04 PM MATERIALS SPECIALIST 07/10/2020 10:17 PM MATERIALS SPECIALIST us Vianney Caballero MD LAB BLOOD ORDERABLES Fin al Result [facility] Department [place] [address] * (ABNORMAL) CBC with auto differential (07/10/2020 9:04 PM MATERIALS SPECIALIST) [facility] WBC 22.8(H) 3.8 - 9.9 K/cumm [facility] Hgb 10.4(L) 11.9 - 15.5 g/dL [facility] Hct 32.3(L) 35.6 - 45.5 % [facility] Plt 329 150 - 400 K/cumm [facility] MPV 9.7 9.1 - 12.3 fL [facility] RBC 3.40(L) 3.90 - 5.20 M/cumm [facility] MCV 95.0 81.3 - 96.4 fL [facility] MCH 30.6 27.1 - 33.3 pg [facility] MCHC 32.2(L) 32.3 - 35.7 g/dL [facility] RDW CV 11.9 11.1 - 14.9 % [facility] RDW SD 41.5 35.7 - 48.1 fL [facility] NRBC abs 0.00 0.00 - 0.01 K/cumm [facility] Blood specimen (specimen) 07/10/2020 9:04 PM MATERIALS SPECIALIST 07/10/2020 10:17 PM MATERIALS SPECIALIST us Obed Martinez MD LAB BLOOD ORDERABLES Fi nal Result [facility] Department [place] [address] * (ABNORMAL) Comprehensive metabolic panel (07/10/2020 9:04 PM MATERIALS SPECIALIST) Pathologist [facility] Sodium 128(L) 135 - 145 mmol/L [facility] Potassium, pl 5.1(H) 3.3 - 4.9 mmol/L [facility] Chloride 92(L) 97 - 110 mmol/L [facility] CO2 28 22 - 32 mmol/L [facility] Anion gap 8 2 - 15 mmol/L [facility] BUN 7(L) 8 - 25 mg/dL [facility] Creatinine 0.56(L) 0.60 - 1.10 mg/dL [facility] Glucose 130 70 - 199 mg/dL [facility] Comment: Interpretive Data Fasting glucose >/= [...] 2017. Calcium 8.8 8.5 - 10.3 mg/dL [facility] Bilirubin, total 0.2 0.1 - 1.2 mg/dL [facility] Protein, pl 7.1 6.5 - 8.5 g/dL [facility] Albumin 2.9(L) 3.5 - 5.0 g/dL [facility] Alk phos 135(H) 40 - 130 Units/L [facility] ALT 12 7 - 45 Units/L [facility] AST 28 10 - 45 Units/L [facility] Blood specimen (specimen) 07/10/2020 9:04 PM MATERIALS SPECIALIST 07/10/2020 10:17 PM MATERIALS SPECIALIST us Obed Martinez MD LAB BLOOD ORDERABLES Fi nal Result [facility] Department [place] [address] * (ABNORMAL) Differential, auto (07/09/2020 9:03 PM MATERIALS SPECIALIST) Neutrophil abs 11.1(H) 1.7 - 6.5 K/cumm [facility] Imm gran abs 0.7(H) 0.0 - 0.1 K/cumm [facility] Lymphocyte abs 2.0 0.8 - 3.3 K/cumm [facility] Monocyte abs 1.7(H) 0.2 - 0.8 K/cumm [facility] Eosinophil abs 0.0 0.0 - 0.5 K/cumm [facility] Basophil abs 0.1 0.0 - 0.1 K/cumm [facility] Neutrophil pct 70.9 % [facility] Comment: Interpretive Data Percent cell count reference ranges are not reported, since discordance with absolute values may lead to misinterpretation of CBC data. Current Interpretive Data was last revised on 2017. Imm gran pct 4.5 % [facility] Comment: Interpretive Data Percent cell count reference ranges are not reported, since discordance with absolute values may lead to misinterpretation of CBC data. Current Interpretive Data was last revised on 2017. Lymphocyte pct 13.0 % [facility] Comment: Interpretive Data Percent cell count reference ranges are not reported, since discordance with absolute values may lead to misinterpretation of CBC data. Current Interpretive Data was last revised on 2017. Monocyte pct 11.0 % [facility] Comment: Interpretive Data Percent cell count reference ranges are not reported, since discordance with absolute values may lead to misinterpretation of CBC data. Current Interpretive Data was last revised on 2017. Eosinophil pct 0.3 % [facility] Comment: Interpretive Data Percent cell count reference ranges are not reported, since discordance with absolute values may lead to misinterpretation of CBC data. Current Interpretive Data was last revised on 2017. Basophil pct 0.3 % [facility] Comment: Interpretive Data Percent cell count reference ranges are not reported, since discordance with absolute values may lead to misinterpretation of CBC data. Current Interpretive Data was last revised on 2017. Blood specimen (specimen) 07/09/2020 9:03 PM MATERIALS SPECIALIST 07/09/2020 10:01 PM MATERIALS SPECIALIST us Vianney Caballero MD LAB BLOOD ORDERABLES Fin al Result [facility] [place] [address] * (ABNORMAL) CBC with auto differential (07/09/2020 9:03 PM MATERIALS SPECIALIST) WBC 15.6(H) 3.8 - 9.9 K/cumm [facility] Hgb 8.5(L) 11.9 - 15.5 g/dL [facility] Hct 26.8(L) 35.6 - 45.5 % [facility] Plt 361 150 - 400 K/cumm [facility] MPV 9.4 9.1 - 12.3 fL [facility] RBC 2.83(L) 3.90 - 5.20 M/cumm [facility] MCV 94.7 81.3 - 96.4 fL [facility] MCH 30.0 27.1 - 33.3 pg [facility] MCHC 31.7(L) 32.3 - 35.7 g/dL [facility] RDW CV 11.9 11.1 - 14.9 % [facility] RDW SD 41.7 35.7 - 48.1 fL [facility] NRBC abs 0.00 0.00 - 0.01 K/cumm [facility] Blood specimen (specimen) 07/09/2020 9:03 PM MATERIALS SPECIALIST 07/09/2020 10:01 PM MATERIALS SPECIALIST us Obed Martinez MD LAB BLOOD ORDERABLES Fi nal Result [facility] Department [place] [address] * (ABNORMAL) Comprehensive metabolic panel (07/09/2020 9:03 PM MATERIALS SPECIALIST) [facility] Sodium 127(L) 135 - 145 mmol/L [facility] Potassium, pl 5.0(H) 3.3 - 4.9 mmol/L [facility] Chloride 93(L) 97 - 110 mmol/L [facility] CO2 28 22 - 32 mmol/L [facility] Anion gap 6 2 - 15 mmol/L [facility] BUN 8 8 - 25 mg/dL [facility] Creatinine 0.60 0.60 - 1.10 mg/dL [facility] Glucose 139 70 - 199 mg/dL [facility] Comment: Interpretive Data Fasting glucose >/= [...] 2017. Calcium 8.6 8.5 - 10.3 mg/dL [facility] Bilirubin, total 0.3 0.1 - 1.2 mg/dL [facility] Protein, pl 6.8 6.5 - 8.5 g/dL [facility] Albumin 2.9(L) 3.5 - 5.0 g/dL [facility] Alk phos 149(H) 40 - 130 Units/L [facility] ALT 14 7 - 45 Units/L [facility] AST 29 10 - 45 Units/L [facility] Blood specimen (specimen) 07/09/2020 9:03 PM MATERIALS SPECIALIST 07/09/2020 10:01 PM MATERIALS SPECIALIST Obed Martinez MD LAB BLOOD ORDERABLES Fi nal Result Performing Organization Address City/[facility]/ZIP Co de Phone Number [facility] Department [place] [address] * POCT glucose (07/09/2020 9:02 PM MATERIALS SPECIALIST) [facility] Signature Glucose, POC 148 70 - 199 mg/dL [facility] Blood specimen (specimen) 07/09/2020 9:02 PM MATERIALS SPECIALIST 07/09/2020 9:02 PM MATERIALS SPECIALIST Obed Martinez MD LAB POCT ORDERABLES - D EVICE Final Result Performing Organization Address [facility]/ZIP Co de Phone Number [facility] Department [place] [address] * POCT glucose (07/09/2020 4:34 PM MATERIALS SPECIALIST) Glucose, POC 164 70 - 199 mg/dL [facility] Blood specimen (specimen) 07/09/2020 4:34 PM MATERIALS SPECIALIST 07/09/2020 4:34 PM MATERIALS SPECIALIST us Obed Martinez MD LAB POCT ORDERABLES - D EVICE Final Result [facility] Department [place] [address] * (ABNORMAL) Differential, auto (07/08/2020 5:57 PM MATERIALS SPECIALIST) Pathologist [facility] Neutrophil abs 22.5(H) 1.7 - 6.5 K/cumm [facility] Imm gran abs 1.4(H) 0.0 - 0.1 K/cumm [facility] Lymphocyte abs 1.0 0.8 - 3.3 K/cumm [facility] Monocyte abs 0.6 0.2 - 0.8 K/cumm [facility] Eosinophil abs 0.0 0.0 - 0.5 K/cumm [facility] Basophil abs 0.1 0.0 - 0.1 K/cumm [facility] Neutrophil pct 87.8 % [facility] Comment: Interpretive Data Percent cell count reference ranges are not reported, since discordance with absolute values may lead to misinterpretation of CBC data. Current Interpretive Data was last revised on 2017. Imm gran pct 5.5 % [facility] Comment: Interpretive Data Percent cell count reference ranges are not reported, since discordance with absolute values may lead to misinterpretation of CBC data. Current Interpretive Data was last revised on 2017. Lymphocyte pct 3.8 % [facility] Comment: Interpretive Data Percent cell count reference ranges are not reported, since discordance with absolute values may lead to misinterpretation of CBC data. Current Interpretive Data was last revised on 2017. Monocyte pct 2.5 % [facility] Comment: Interpretive Data Percent cell count reference ranges are not reported, since discordance with absolute values may lead to misinterpretation of CBC data. Current Interpretive Data was last revised on 2017. Eosinophil pct 0.0 % [facility] Comment: Interpretive Data Percent cell count reference ranges are not reported, since discordance with absolute values may lead to misinterpretation of CBC data. Current Interpretive Data was last revised on 2017. Basophil pct 0.4 % [facility] Comment: Interpretive Data Percent cell count reference ranges are not reported, since discordance with absolute values may lead to misinterpretation of CBC data. Current Interpretive Data was last revised on 2017. Blood specimen (specimen) 07/08/2020 5:57 PM MATERIALS SPECIALIST 07/08/2020 7:33 PM MATERIALS SPECIALIST us Vianney Caballero MD LAB BLOOD ORDERABLES Fin al Result [facility] Department [place] [address] * Blood culture Blood (07/08/2020 5:57 PM MATERIALS SPECIALIST) Report Final Report: No growth [facility] Blood specimen (specimen) 07/08/2020 5:57 PM MATERIALS SPECIALIST 07/08/2020 8:08 PM MATERIALS SPECIALIST N[facility]ative [facility]13[facility] 7:01 AM MATERIALS SPECIALIST 1. ?Blood cultures are incubated for 4 [...] organism identification may be performed using the [employer] Gram-Positive Blood Culture Assay. This assay detects microbial DNA in positive blood culture broth via hybridization of target DNA to capture oligonucleotides on a microarray. This assay has been cleared by the [place] Food and Drug Administration and its performance characteristics have been verified by the [facility]biology [facility]. 5. ?For questions about this culture, contact the Microbiology Laboratory at [phone]. Interpretive data was last revised on 2019. Obed Martinez MD LAB MICROBIOLOGY - GENE RAL ORDERABLES Final Result [facility] Department [place] [address] * Blood culture Blood (07/08/2020 5:57 PM MATERIALS SPECIALIST) Report Final Report: No growth [facility] Blood specimen (specimen) 07/08/2020 5:57 PM MATERIALS SPECIALIST 07/08/2020 8:08 PM MATERIALS SPECIALIST Narrative [facility] - 07/13/2020 7:01 AM MATERIALS SPECIALIST 1. ?Blood cultures are incubated for 4 [...] organism identification may be performed using the [employer] Gram-Positive Blood Culture Assay. This assay detects microbial DNA in positive blood culture broth via hybridization of target DNA to capture oligonucleotides on a microarray. This assay has been cleared by the [place] Food and Drug Administration and its performance characteristics have been verified by the [facility]. 5. ?For questions about this culture, contact the Microbiology Laboratory at [phone]. Interpretive data was last revised on 2019. Obed Martinez MD LAB MICROBIOLOGY - GENE RAL ORDERABLES Final Result Performing Organization Address [facility] Co de Phone Number [facility] Department [place] [address] * (ABNORMAL) CBC with auto differential (07/08/2020 5:57 PM MATERIALS SPECIALIST) [facility] WBC 25.6(H) 3.8 - 9.9 K/cumm [facility] Hgb 10.9(L) 11.9 - 15.5 g/dL [facility] Hct 34.0(L) 35.6 - 45.5 % [facility] Plt 451(H) 150 - 400 K/cumm [facility] MPV 9.9 9.1 - 12.3 fL [facility] RBC 3.58(L) 3.90 - 5.20 M/cumm [facility] MCV 95.0 81.3 - 96.4 fL [facility] MCH 30.4 27.1 - 33.3 pg [facility] MCHC 32.1(L) 32.3 - 35.7 g/dL [facility] RDW CV 11.9 11.1 - 14.9 % [facility] RDW SD 41.6 35.7 - 48.1 fL [facility] NRBC abs 0.00 0.00 - 0.01 K/cumm [facility] Blood specimen (specimen) 07/08/2020 5:57 PM MATERIALS SPECIALIST 07/08/2020 7:33 PM MATERIALS SPECIALIST us Obed Martinez MD LAB BLOOD ORDERABLES Fi nal Result Performing Organization Address [facility]/ZIP Co de Phone Number [facility] Department [place] [address] * (ABNORMAL) Comprehensive metabolic panel (07/08/2020 5:57 PM MATERIALS SPECIALIST) Pathologist [facility] Sodium 128(L) 135 - 145 mmol/L [facility] Potassium, pl 4.8 3.3 - 4.9 mmol/L [facility] Chloride 91(L) 97 - 110 mmol/L [facility] CO2 26 22 - 32 mmol/L [facility] Anion gap 11 2 - 15 mmol/L [facility] BUN 14 8 - 25 mg/dL [facility] Creatinine 0.70 0.60 - 1.10 mg/dL [facility] Glucose 187 70 - 199 mg/dL [facility] Comment: Interpretive Data Fasting glucose >/= [...] 2017. Calcium 9.1 8.5 - 10.3 mg/dL [facility] Bilirubin, total 0.2 0.1 - 1.2 mg/dL [facility] Protein, pl 7.7 6.5 - 8.5 g/dL [facility] Albumin 3.3(L) 3.5 - 5.0 g/dL [facility] Alk phos 195(H) 40 - 130 Units/L [facility] ALT 26 7 - 45 Units/L [facility] AST 33 10 - 45 Units/L [facility] Blood specimen (specimen) 07/08/2020 5:57 PM MATERIALS SPECIALIST 07/08/2020 7:32 PM MATERIALS SPECIALIST us Obed Martinez MD LAB BLOOD ORDERABLES Fi nal Result [facility] One [facility] Department [place] [address] * (ABNORMAL) Vancomycin, trough Please draw before this evening's dose of vancomycin. Thanks! (07/08/2020 5:57 PM MATERIALS SPECIALIST) Vancomycin trough 7.9(L) 10.0 - 20.9 mcg/mL [facility] Blood specimen (specimen) 07/08/2020 5:57 PM MATERIALS SPECIALIST 07/08/2020 7:32 PM MATERIALS SPECIALIST Narrative [facility] - 07/08/2020 8:19 PM MATERIALS SPECIALIST Please draw before this evening's dose of vancomycin. Thanks! us Obed Martinez MD LAB BLOOD ORDERABLES Fi nal Result Performing Organization Address [facility]/ZIP Co de Phone Number [facility] Department [place] [address] * Tissue aerobic and anaerobic culture and gram stain Bone Leg, left (07/08/2020 1:18 PM MATERIALS SPECIALIST) Pathologist [facility] Direct Specimen Exam Stain: Moderate polymorphonuclear leukocytes seen. No organisms seen. [facility] Report Final Report: No growth [facility] Bone (Leg, left) 07/08/2020 1:18 PM MATERIALS SPECIALIST 07/08/2020 2:25 PM MATERIALS SPECIALIST Narrative [facility] - 07/13/2020 10:46 AM MATERIALS SPECIALIST Left residual femur Testing performed by [facility] Microbiology Laboratory ([phone]) Specimens submitted from normally sterile body sites [...] GENERAL ORDERABLES Final Result Performing Organization Address [facility] Co de Phone Number [facility] Department [place] [address] * [place] Fluoroscopy < 1 Hour (Statistical Only) (07/08/2020 12:52 PM MATERIALS SPECIALIST) Narrative [facility] - 07/08/2020 12:52 PM MATERIALS SPECIALIST The images from this study are not interpreted by Radiology. ??Please refer to the physician's procedure / OR operative note. Jacobo Shoemaker MD IMG FLUOROSCOPY PROCEDURES Final Result [facility] * Surgical pathology (07/08/2020 12:18 PM MATERIALS SPECIALIST) Tissue (Amputation non-tramatic) 07/08/2020 12:18 PM MATERIALS SPECIALIST Narrative PATHOLOGY [facility] - 07/11/2020 12:05 PM MATERIALS SPECIALIST EPIC results best viewed via link to PDF [facility] Ethel Castellon Laboratory [place] [address] SURGICAL PATHOLOGY REPORT FINAL Patient Name: ?? CELESTINA ANSARIViraj Gender: ??F : ??1950 (Age: 69) Address: ??[address] [place] [address] ??[id number] Hospital #: ??[id number] Taken:07/08/2020 Received:07/08/2020 Reported: 07/11/2020 Patient Type: [facility] Inpatient ?? Service: Orthopedic Surgery Location: [place] [address] Physician(s): ??Jacobo Shoemaker M.D. 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 A white plastic, circular medical technologist chief replaces the patella and measures 4.0 x 3.3 x 1.0 cm. The distal aspect of the femur is roughened, and the medial and lateral condyles are no longer grossly appreciated. A jerome metallic and white plastic medical technologist chief is identified at the proximal tibia and measures 6.0 x 4.4 x 3.5 cm. Sections of the distal femur are easily taken with a scalpel blade. Labeled A1 - labor service representative shave of soft tissue and skin at the surgical resection margin; A2 - labor service representative section of incision, perpendicular; A3 - labor service representative sections of distal femur following acid decal; A4 - shave of femur resection margin following acid decalcification. ??The specimen is returned biohazard bag. mr2/07/08/2020 15:24 PA(s): Lisa Cruz MS, PA ([facility]) By this signature, I attest that the above diagnosis is based upon my personal examination of the slides(and/or other material). Addenda/Procedures The performance characteristics of some immunohistochemical stains, fluorescence in-situ hybridization tests and immunophenotyping by flow cytometry cited in this report (if any) were determined by the Surgical Pathology Department at [facility] as part of an ongoing software quality assurance analyst program and in compliance with federally mandated [...] determined by the Surgical Pathology Department of [facility]. ??It has not been cleared or approved by the U. S. Food and Drug Administration. IMAGES AND SCANNED DOCUMENTS, IF INCLUDED, ONLY VIEWABLE IN PDF VERSION OF REPORT us Jacobo Shoemaker MD LAB PATHOLOGY OR DERABLES Final Result PATHOLOGY [facility] 3rd Floor [place], [place] [phone] * XR Tibia Fibula Left 2 Views (07/08/2020 1:04 AM MATERIALS SPECIALIST) Anatomical Region Laterality Modality Lower Extremities, Lower Leg Left Com puted Radiography 07/08/2020 6:27 AM MATERIALS SPECIALIST Impressions 07/08/2020 6:27 AM MATERIALS SPECIALIST 1. 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 Electronically signed by: Jordan Andrews MD, PHD Narrative 07/08/2020 6:27 AM MATERIALS SPECIALIST EXAMINATION: Left tibia-fibula 2 views HISTORY: ??Left [...] Electronically signed by: Jordan Andrews MD, PHD Ethel Amaro MD IMG XR PROCEDURES Fi nal Result * ECG 12 lead (07/07/2020 11:59 PM MATERIALS SPECIALIST) Pathologist [facility] Ventricular Rate EKG/Min 76 BPM [facility] Atrial Rate 76 BPM [facility] NH-Interval (MSEC) 174 ms [facility] QRS-Interval (MSEC) 84 ms [facility] QT-Interval (MSEC) 414 ms [facility] QTc 465 ms [facility] P [place] 70 degrees [facility] R [place] -21 degrees [facility] T [place] 22 degrees [facility] Diagnosis Normal sinus rhythm Voltage criteria for left ventricular hypertrophy Abnormal ECG When compared with ECG of 11-DEC-2020 19:29, (unconfirmed) No significant change was found Confirmed by GENIE BEAR M.D ([id number]) on 07/08/2020 11:34:42 AM [facility] 07/07/2020 11:5 9 PM MATERIALS SPECIALIST 07/08/2020 11:34 AM MATERIALS SPECIALIST us Huang Gusman MD ECG ORDERABLES Final Result [facility] * (ABNORMAL) Differential, auto (07/07/2020 10:06 PM MATERIALS SPECIALIST) Neutrophil abs 14.9(H) 1.7 - 6.5 K/cumm [facility] Imm gran abs 1.1(H) 0.0 - 0.1 K/cumm [facility] Lymphocyte abs 2.4 0.8 - 3.3 K/cumm [facility] Monocyte abs 1.7(H) 0.2 - 0.8 K/cumm [facility] Eosinophil abs 0.2 0.0 - 0.5 K/cumm [facility] Basophil abs 0.1 0.0 - 0.1 K/cumm [facility] Neutrophil pct 73.4 % [facility] Comment: Interpretive Data Percent cell count reference ranges are not reported, since discordance with absolute values may lead to misinterpretation of CBC data. Current Interpretive Data was last revised on 2017. Imm gran pct 5.3 % [facility] Comment: Interpretive Data Percent cell count reference ranges are not reported, since discordance with absolute values may lead to misinterpretation of CBC data. Current Interpretive Data was last revised on 2017. Lymphocyte pct 11.6 % [facility] Comment: Interpretive Data Percent cell count reference ranges are not reported, since discordance with absolute values may lead to misinterpretation of CBC data. Current Interpretive Data was last revised on 2017. Monocyte pct 8.4 % [facility] Comment: Interpretive Data Percent cell count reference ranges are not reported, since discordance with absolute values may lead to misinterpretation of CBC data. Current Interpretive Data was last revised on 2017. Eosinophil pct 0.8 % [facility] Comment: Interpretive Data Percent cell count reference ranges are not reported, since discordance with absolute values may lead to misinterpretation of CBC data. Current Interpretive Data was last revised on 2017. Basophil pct 0.5 % [facility] Comment: Interpretive Data Percent cell count reference ranges are not reported, since discordance with absolute values may lead to misinterpretation of CBC data. Current Interpretive Data was last revised on 2017. Blood specimen (specimen) 07/07/2020 10:06 PM MATERIALS SPECIALIST 07/08/2020 1:29 AM MATERIALS SPECIALIST Vianney Caballero MD LAB BLOOD ORDERABLES Fin al Result Performing Organization Address [facility] Co de Phone Number [facility] Department [place] [address] * Type and screen (07/07/2020 10:06 PM MATERIALS SPECIALIST) Pathologist [facility] Triston, indirect Negative [facility] ABO Rh A Positive [facility] Blood specimen (specimen) 07/07/2020 10:06 PM MATERIALS SPECIALIST 07/08/2020 1:54 AM MATERIALS SPECIALIST Narrative [facility] - 07/08/2020 3:29 AM MATERIALS SPECIALIST Has the patient had Daratumumab or Isatuximab in the past 6 months?->Unknown Huang Gusman MD LAB BLOOD BANK TEST ORDERABLES F inal Result Performing Organization Address [facility] Co de Phone Number [facility] Department [place] [address] * (ABNORMAL) CBC with auto differential (07/07/2020 10:06 PM MATERIALS SPECIALIST) [facility] WBC 20.3(H) 3.8 - 9.9 K/cumm [facility] Hgb 9.6(L) 11.9 - 15.5 g/dL [facility] Hct 29.7(L) 35.6 - 45.5 % [facility] Plt 436(H) 150 - 400 K/cumm [facility] MPV 9.6 9.1 - 12.3 fL [facility] RBC 3.16(L) 3.90 - 5.20 M/cumm [facility] MCV 94.0 81.3 - 96.4 fL [facility] MCH 30.4 27.1 - 33.3 pg [facility] MCHC 32.3 32.3 - 35.7 g/dL [facility] RDW CV 11.9 11.1 - 14.9 % [facility] RDW SD 40.9 35.7 - 48.1 fL [facility] NRBC abs 0.00 0.00 - 0.01 K/cumm [facility] Blood specimen (specimen) 07/07/2020 10:06 PM MATERIALS SPECIALIST 07/08/2020 1:29 AM MATERIALS SPECIALIST us Obed Martinez MD LAB BLOOD ORDERABLES [facility] Result [facility] One [facility] Department [place] [address] * (ABNORMAL) Comprehensive metabolic panel (07/07/2020 10:06 PM MATERIALS SPECIALIST) Sodium 129(L) 135 - 145 mmol/L [facility] Potassium, pl 3.9 3.3 - 4.9 mmol/L [facility] Chloride 93(L) 97 - 110 mmol/L [facility] CO2 30 22 - 32 mmol/L [facility] Anion gap 6 2 - 15 mmol/L [facility] BUN 13 8 - 25 mg/dL [facility] Creatinine 0.70 0.60 - 1.10 mg/dL [facility] Glucose 103 70 - 199 mg/dL [facility] Comment: Interpretive Data Fasting glucose >/= [...] 2017. Calcium 8.9 8.5 - 10.3 mg/dL [facility] Bilirubin, total 0.3 0.1 - 1.2 mg/dL [facility] Protein, pl 7.4 6.5 - 8.5 g/dL [facility] Albumin 3.2(L) 3.5 - 5.0 g/dL [facility] Alk phos 206(H) 40 - 130 Units/L [facility] ALT 25 7 - 45 Units/L [facility] AST 35 10 - 45 Units/L [facility] Blood specimen (specimen) 07/07/2020 10:06 PM MATERIALS SPECIALIST 07/08/2020 1:29 AM MATERIALS SPECIALIST us Obed Martinez MD LAB BLOOD ORDERABLES [facility] Result [facility] One [facility] Department [place] [address] * (ABNORMAL) Manual Differential (07/06/2020 11:07 PM MATERIALS SPECIALIST) Differential Manual [facility] Cells Counted 115 [facility] Neutrophil abs 22.1(H) 1.7 - 6.5 K/cumm [facility] Imm gran abs 0.6(H) 0.0 - 0.1 K/cumm [facility] Lymphocyte abs 1.1 0.8 - 3.3 K/cumm [facility] Monocyte abs 0.9(H) 0.2 - 0.8 K/cumm [facility] Neutrophil pct 89.5 % [facility] Comment: Interpretive Data Percent cell count reference ranges are not reported, since discordance with absolute values may lead to misinterpretation of CBC data. Current Interpretive Data was last revised on 2017. Lymphocyte pct 3.5 % [facility] Comment: Interpretive Data Percent cell count reference ranges are not reported, since discordance with absolute values may lead to misinterpretation of CBC data. Current Interpretive Data was last revised on 2017. Monocyte pct 3.5 % [facility] Comment: Interpretive Data Percent cell count reference ranges are not reported, since discordance with absolute values may lead to misinterpretation of CBC data. Current Interpretive Data was last revised on 2017. Metamyelocyte pct 2.6 % [facility] Variant lymph pct 0.9 % [facility] Hypersegmentation Present(A) [facility] Blood specimen (specimen) 07/06/2020 11:07 PM MATERIALS SPECIALIST 07/07/2020 12:01 AM MATERIALS SPECIALIST us Vianney Caballero MD LAB BLOOD ORDERABLES Fin al Result [facility] One [facility] Department [place] [address] * (ABNORMAL) CBC with auto differential (07/06/2020 11:07 PM MATERIALS SPECIALIST) WBC 24.7(H) 3.8 - 9.9 K/cumm [facility] Hgb 11.0(L) 11.9 - 15.5 g/dL [facility] Hct 33.6(L) 35.6 - 45.5 % [facility] Plt 448(H) 150 - 400 K/cumm [facility] MPV 9.5 9.1 - 12.3 fL [facility] RBC 3.62(L) 3.90 - 5.20 M/cumm [facility] MCV 92.8 81.3 - 96.4 fL [facility] MCH 30.4 27.1 - 33.3 pg [facility] MCHC 32.7 32.3 - 35.7 g/dL [facility] RDW CV 11.8 11.1 - 14.9 % [facility] RDW SD 40.2 35.7 - 48.1 fL [facility] NRBC abs 0.00 0.00 - 0.01 K/cumm [facility] Blood specimen (specimen) 07/06/2020 11:07 PM MATERIALS SPECIALIST 07/06/2020 11:58 PM MATERIALS SPECIALIST us Obed Martinez MD LAB BLOOD ORDERABLES Fi nal Result [facility] One [facility] Department [place] [address] * (ABNORMAL) Comprehensive metabolic panel (07/06/2020 11:07 PM MATERIALS SPECIALIST) Sodium 132(L) 135 - 145 mmol/L [facility] Potassium, pl 4.9 3.3 - 4.9 mmol/L [facility] Chloride 93(L) 97 - 110 mmol/L [facility] CO2 27 22 - 32 mmol/L [facility] Anion gap 12 2 - 15 mmol/L [facility] BUN 15 8 - 25 mg/dL [facility] Creatinine 0.77 0.60 - 1.10 mg/dL [facility] Glucose 133 70 - 199 mg/dL [facility] Comment: Interpretive Data Fasting glucose >/= [...] 2017. Calcium 9.3 8.5 - 10.3 mg/dL [facility] Bilirubin, total 0.3 0.1 - 1.2 mg/dL [facility] Protein, pl 7.5 6.5 - 8.5 g/dL [facility] Albumin 3.3(L) 3.5 - 5.0 g/dL [facility] Alk phos 183(H) 40 - 130 Units/L [facility] ALT 20 7 - 45 Units/L [facility] AST 26 10 - 45 Units/L [facility] Blood specimen (specimen) 07/06/2020 11:07 PM MATERIALS SPECIALIST 07/06/2020 11:58 PM MATERIALS SPECIALIST us Obed Martinez MD LAB BLOOD ORDERABLES Fi nal Result Performing Organization Address [facility] Co de Phone Number [facility] One [facility] [place] [address] * [place] Fluoroscopy < 1 Hour (07/06/2020 6:10 PM MATERIALS SPECIALIST) Narrative [facility] - 07/06/2020 6:12 PM MATERIALS SPECIALIST The images from this study are not interpreted by Radiology. ??Please refer to the physician's procedure / OR operative note. Ethel Amaro MD IMG FLUOROSCOPY PROC EDURES Final Result Performing Organization Address [facility] Co de Phone Number [email or web address] * Mycobacteriology (AFB) culture Tissue Leg, left (07/06/2020 6:07 PM MATERIALS SPECIALIST) Report Final Report: No growth of acid-fast bacilli [facility] Tissue (Leg, left) 07/06/2020 6:07 PM MATERIALS SPECIALIST 07/07/2020 5:32 AM MATERIALS SPECIALIST Narrative [facility] - 09/02/2020 8:15 AM MATERIALS SPECIALIST LEFT TIBIA #3 Testing performed by [facility]biology Laboratory ([phone]). Ethel Amaro MD LAB MICROBIOLOGY - G ENERAL ORDERABLES Final Result Performing Organization Address [facility] Co de Phone Number [facility] One [facility] Department [place] [address] * Mycology (fungal) culture Tissue Leg, left (07/06/2020 6:07 PM MATERIALS SPECIALIST) Report Final Report: No growth of fungus [facility] Tissue (Leg, left) 07/06/2020 6:07 PM MATERIALS SPECIALIST 07/07/2020 5:32 AM MATERIALS SPECIALIST Narrative [facility] - 08/04/2020 10:11 AM MATERIALS SPECIALIST LEFT TIBIA #3 Testing performed by [facility] ([phone]). Ethel Amaro MD LAB MICROBIOLOGY - ENERAL ORDERABLES Final Result Performing Organization Address [facility]/ZIP Co de Phone Number [facility] Department [place] [address] * (ABNORMAL) Tissue aerobic and anaerobic culture and gram stain Tissue Leg, left (07/06/2020 6:07 PMCST) Direct Specimen Exam Stain: Few polymorphonuclear leukocytes seen. Rare Gram Negative Bacilli Rare Gram Positive Cocci [facility] Report Final Report: Few Escherichia coli Few Proteus mirabilis Rare Mixed microorganisms. For susceptibility results, refer to accession number [id number] on the Tissue / Left leg culture from 07/07/2020 (.) [facility] Organism MIXED MICROORGANISMS. [facility] Organism ESCHERICHIA COLI [facility] Organism PROTEUS MIRABILIS [facility] Tissue (Leg, left) 07/06/2020 6:07 PM MATERIALS SPECIALIST 07/07/2020 5:32 AM MATERIALS SPECIALIST Narrative [facility] - 07/10/2020 11:13 AM MATERIALS SPECIALIST LEFT TIBIA #3 Testing performed by [facility] ([phone]) Specimens submitted from normally sterile body sites [...] data was last revised on 2019. us Ethel Amaro MD LAB MICROBIOLOGY - ENERAL ORDERABLES Final Result Performing Organization Address [facility]/ZIP Co de Phone Number [facility] Department [place] [address] * Mycobacteriology (AFB) culture Tissue Leg, left (07/06/2020 5:59 PM MATERIALS SPECIALIST) Report Final Report: No growth of acid-fast bacilli [facility] Tissue (Leg, left) 07/06/2020 5:59 PM MATERIALS SPECIALIST 07/07/2020 5:37 AM MATERIALS SPECIALIST Narrative [facility] - 09/02/2020 8:15 AM MATERIALS SPECIALIST LEFT TIBIA #2 Testing performed by [facility] ([phone]). Ethel Amaro MD LAB MICROBIOLOGY - G ENERAL ORDERABLES Final Result Performing Organization Address [facility] Co de Phone Number [facility] One [facility] [place] [address] * Mycology (fungal) culture Tissue Leg, left (07/06/2020 5:59 PM MATERIALS SPECIALIST) Report Final Report: No growth of fungus [facility] Tissue (Leg, left) 07/06/2020 5:59 PM MATERIALS SPECIALIST 07/07/2020 5:37 AM MATERIALS SPECIALIST Narrative [facility] - 08/04/2020 10:10 AM MATERIALS SPECIALIST LEFT TIBIA #2 Testing performed by [facility] ([phone]). Ethel Amaro MD LAB MICROBIOLOGY - G ENERAL ORDERABLES Final Result Performing Organization Address [facility] Co de Phone Number [facility] One [facility] [place] [address] * (ABNORMAL) Tissue aerobic and anaerobic culture and gram stain Tissue Leg, left (07/06/2020 5:59 PMCST) Direct Specimen Exam Stain: Abundant polymorphonuclear leukocytes seen. Few Gram Positive Cocci Few Gram Negative Bacilli [facility] Report Final Report: Moderate Mixed aerobic and anaerobic microorganisms Includes the following: Moderate Proteus mirabilis Moderate Escherichia coli (.) [facility] Organism PROTEUS MIRABILIS [facility] Organism ESCHERICHIA COLI [facility] Organism MIXED AEROBIC AND ANAEROBIC MICROORGANISMS [facility] Tissue (Leg, left) 07/06/2020 5:59 PM MATERIALS SPECIALIST 07/07/2020 5:37 AM MATERIALS SPECIALIST Narrative SHAILA QUINTERO - 07/10/2020 11:12 AM MATERIALS SPECIALIST LEFT TIBIA #2 Testing performed by [facility] ([phone]) Specimens submitted from normally sterile body sites [...] Susceptible Escherichia coli Piperacillin/Tazobactam INTERPRETATIO N Susceptible us Ethel Amaro MD LAB MICROBIOLOGY - G ENERAL ORDERABLES Final Result MARCYELAINA LINDSAY [facility] Department [place] [address] * Mycobacteriology (AFB) culture Tissue Leg, left (07/06/2020 5:56 PM MATERIALS SPECIALIST) Report Final Report: No growth of acid-fast bacilli SHAILA MONTOYA Tissue (Leg, left) 07/06/2020 5:56 PM MATERIALS SPECIALIST 07/07/2020 5:35 AM MATERIALS SPECIALIST Narrative SHAILA [facility] - 09/02/2020 8:15 AM MATERIALS SPECIALIST LEFT TIBIA #1 Testing performed by [facility] ([phone]). Ethel Amaro MD LAB MICROBIOLOGY - G ENERAL ORDERABLES Final Result Performing Organization Address [facility] Co de Phone Number [facility] [place] [address] * Mycology (fungal) culture Tissue Leg, left (07/06/2020 5:56 PM MATERIALS SPECIALIST) Report Final Report: No growth of fungus [facility] Tissue (Leg, left) 07/06/2020 5:56 PM MATERIALS SPECIALIST 07/07/2020 5:35 AM MATERIALS SPECIALIST Narrative SHAILA [facility] - 08/04/2020 10:10 AM MATERIALS SPECIALIST LEFT TIBIA #1 Testing performed by [facility] ([phone]). Ethel Amaro MD LAB MICROBIOLOGY - G ENERAL ORDERABLES Final Result Performing Organization Address [facility] [place] [address] * (ABNORMAL) Tissue aerobic and anaerobic culture and gram stain Tissue Leg, left (07/06/2020 5:56 PMCST) Direct Specimen Exam Stain: Few polymorphonuclear leukocytes seen. Rare Gram Positive Cocci Rare Gram Negative Bacilli [facility] Report Final Report: Few Mixed microorganisms. Includes the following: Few Escherichia coli Few Proteus mirabilis For susceptibility results, refer to accession number [id number] on the Tissue / Left leg culture from 07/07/2020 (.) [facility] Organism MIXED MICROORGANISMS. [facility] Organism ESCHERICHIA COLI [facility] Organism PROTEUS MIRABILIS [facility] Tissue (Leg, left) 07/06/2020 5:56 PM MATERIALS SPECIALIST 07/07/2020 5:35 AM MATERIALS SPECIALIST Narrative [facility]A [facility] - 07/10/2020 11:13 AM MATERIALS SPECIALIST LEFT TIBIA #1 Testing performed by [facility] ([phone]) Specimens submitted from normally sterile body sites [...] data was last revised on 2019. us Ethel Amaro MD LAB MICROBIOLOGY - [facility] ORDERABLES Final Result [facility] Department [place] [address] * CT Tibia Fibula Left WO Contrast (07/06/2020 6:42 AM MATERIALS SPECIALIST) Anatomical Region Laterality Modality Lower Leg Left Computed Tomogra phy 07/06/2020 7:57 AM MATERIALS SPECIALIST Impressions 07/06/2020 9:02 AM MATERIALS SPECIALIST Periprosthetic fracture of the left proximal tibia [...] Lavell Lawson M.D. Narrative 07/06/2020 9:02 AM MATERIALS SPECIALIST EXAMINATION: CT LOWER LEG CALF LEFT WO [...] * Urine culture Urine (07/05/2020 11:19 PM MATERIALS SPECIALIST) Report Final Report: Less than 100,000 colonies/mL (clinically insignificant growth based on current clinical standards) [facility] Organism (CLINICALLY INSIGNIFICANT GROWTH [facility] Urine 07/05/2020 11:1 9 PM MATERIALS SPECIALIST 07/06/2020 1:48 AM MATERIALS SPECIALIST Narrative [facility] - 07/07/2020 7:33 AM MATERIALS SPECIALIST Urine culture reflexed based upon urinalysis results. Testing performed by [facility] ([phone]) Vianney Caballero MD LAB MICROBIOLOGY - [facility] AL ORDERABLES Final Result [facility] Department [place] [address] * (ABNORMAL) Urinalysis, microscopic only (07/05/2020 11:19 PM MATERIALS SPECIALIST) WBC, ur >50(A) 0 - 5 /HPF [facility] RBC, ur 21-50(A) 0 - 2 /HPF [facility] Epithelial cells, squamous, ur 1-5 0 - 5 /HPF [facility] Bacteria, ur Trace(A) [facility] Yeast, ur 2+(A) [facility] Mucous, ur Present(A) [facility] Amorphous crystals, ur Trace(A) [facility] Culture Reflex Comment Reflex to urine culture will be performed. [facility] Urine 07/05/2020 11:1 9 PM MATERIALS SPECIALIST 07/05/2020 11:43 PM MATERIALS SPECIALIST Vianney Caballero MD LAB URINE ORDERABLES Fin al Result Performing Organization Address [facility] Co de Phone Number SHAILA [facility] Department [place] [address] * (ABNORMAL) Urinalysis reflex to microscopic and culture Urine (07/05/2020 11:19 PM MATERIALS SPECIALIST) Color, ur Yellow Yellow [facility] Clarity, ur Cloudy(A) Clear [facility] Specific gravity, ur 1.011 1.010 - 1.025 [facility] pH, urine 6 [facility] Protein, ur ql Negative Negative [facility] Glucose, ur ql Negative Negative [facility] Ketones, ur Trace Negative [facility] Bilirubin, ur Negative Negative [facility] Blood, ur Negative Negative [facility] Urobilinogen, ur <2.0 <2.0 mg/dL [facility] Nitrite, ur Negative Negative [facility] Leukocyte esterase, ur 3+(A) Negative [facility] UA reflex comment Reflex to microscopic UA will be performed. [facility] Urine 07/05/2020 11:1 9 PM MATERIALS SPECIALIST 07/05/2020 11:43 PM MATERIALS SPECIALIST Narrative [facility] - 07/05/2020 11:56 PM MATERIALS SPECIALIST ?? Urine pH is affected by diet, medications, systemic acid-base disturbances, and renal tubular function. ??pH may affect urinary stone formation. ??For example, urine pH below 6.0 may help reduce the tendency for calcium phosphate stones and pH greater than 6.0 may reduce the tendency for uric acid stone formation. Source: [facility] [employer]. Last revised 08-05-2017 us Vianney Caballero MD LAB MICROBIOLOGY - GENER AL ORDERABLES Final Result Performing Organization Address [facility] Co de Phone Number [facility] Department [place] [address] * Sodium, urine, random (07/05/2020 11:19 PM MATERIALS SPECIALIST) Sodium, ur <20 mmol/L [facility] Comment: Repeated and Verified Interpretive Data No reference range established. Current interpretive data was last revised 2018. Urine 07/05/2020 11:1 9 PM MATERIALS SPECIALIST 07/05/2020 11:46 PM MATERIALS SPECIALIST Errol Villareal MD LAB URINE ORDERABLES Final Re sult Performing Organization Address [facility] de Phone Number [facility] [place] [address] * Osmolality, urine (07/05/2020 11:19 PM MATERIALS SPECIALIST) Osmo, ur 242 mOsm/kg [facility] Urine 07/05/2020 11:1 9 PM MATERIALS SPECIALIST 07/05/2020 11:46 PM MATERIALS SPECIALIST Errol Villareal MD LAB URINE ORDERABLES Final Re sult Performing Organization Address [facility] de Phone Number [facility] [place] [address] * Cortisol (07/05/2020 9:22 PM MATERIALS SPECIALIST) Pathologist [facility] Cortisol 17.9 3.7 - 19.4 mcg/dL [facility] Comment: Interpretive Data Normal Range: ??3.7 - 19.4 mcg/dL; ??Evening: ??Half of morning value. ?? This analyte undergoes marked diurnal variation. ??Ranges indicated apply to morning specimens. ?? Current interpretive data was last revised 2013. Blood specimen (specimen) 07/05/2020 9:22 PM MATERIALS SPECIALIST 07/05/2020 11:20 PM MATERIALS SPECIALIST Errol Villareal MD LAB BLOOD ORDERABLES Final Re sult Performing Organization Address [facility] de Phone Number [facility] [place] [address] * TSH reflex to free T4 (07/05/2020 9:22 PM MATERIALS SPECIALIST) Pathologist [facility] TSH 1.06 0.30 - 4.20 mcIUnit/mL [facility] Blood specimen (specimen) 07/05/2020 9:22 PM MATERIALS SPECIALIST 07/05/2020 11:20 PM MATERIALS SPECIALIST Errol Villareal MD LAB BLOOD ORDERABLES Final Re sult Performing Organization Address [facility]/ZIP Co de Phone Number [facility] [place] [address] * (ABNORMAL) Osmolality, blood (07/05/2020 9:22 PM MATERIALS SPECIALIST) Pathologist [facility] Osmo 268(L) 275 - 300 mOsm/kg [facility] Blood specimen (specimen) 07/05/2020 9:22 PM MATERIALS SPECIALIST 07/05/2020 11:20 PM MATERIALS SPECIALIST Errol Villareal MD LAB BLOOD ORDERABLES Final Re sult Performing Organization Address [facility] Co de Phone Number [facility] Department [place] [address] * Blood culture Blood (07/05/2020 9:22 PM MATERIALS SPECIALIST) Pathologist [facility] Report Final Report: No growth [facility] Blood specimen (specimen) 07/05/2020 9:22 PM MATERIALS SPECIALIST 07/05/2020 11:41 PM MATERIALS SPECIALIST Narrative [facility] - 07/10/2020 7:01 AM MATERIALS SPECIALIST 1. ?Blood cultures are incubated for 4 [...] organism identification may be performed using the Ver[employer]ene Gram-Positive Blood Culture Assay. This assay detects microbial DNA in positive blood culture broth via hybridization of target DNA to capture oligonucleotides on a microarray. This assay has been cleared by the [place] Food and Drug Administration and its performance characteristics have been verified by the [facility]. 5. ?For questions about this culture, contact the Microbiology Laboratory at [phone]. Interpretive data was last revised on 2019. Vianney Caballero MD LAB MICROBIOLOGY - [facility] ORDERABLES Final Result [facility] Department [place] [address] * (ABNORMAL) Blood culture Blood (07/05/2020 9:22 PM MATERIALS SPECIALIST) [facility] Direct Specimen Exam Molecular Analysis: Staphylococcus epidermidis detected by the Verigene Blood Culture Nucleic Acid Test. This test does not exclude the possibility of a mixed bacterial infection. Notification of: Staphylococcus epidermidis called to and read back by: Dr. Bashir Peter, on 07/06/2020 20:04:56 by: JINNY Collazo [facility] Direct Specimen Exam Stain: Gram Positive Cocci in clusters Time to culture positivity (aerobic media): 16.5 hours Notification of: Gram Positive Cocci in clusters called to and read back by: Dr. Vianney Prieto, on 07/06/2020 17:11:54 by: JINNY Collazo [facility] Report Final Report: Staphylococcus epidermidis Single blood culture positive for this microorganism. ??Isolate is a possible contaminant. If a similar isolate is recovered from a second blood culture collected within 3 days of this culture, both will be evaluated and, if determined to be the same species, antimicrobial susceptibility testing will be performed. (.) [facility] Organism STAPHYLOCOCCUS EPIDERMIDIS [facility] Blood specimen (specimen) 07/05/2020 9:22 PM MATERIALS SPECIALIST 07/05/2020 11:41 PM MATERIALS SPECIALIST Narrative SHAILA QUINTERO - 07/10/2020 7:10 AM MATERIALS SPECIALIST 1. ?Blood cultures are incubated for 4 [...] organism identification may be performed using the [employer] Gram-Positive Blood Culture Assay. This assay detects microbial DNA in positive blood culture broth via hybridization of target DNA to capture oligonucleotides on a microarray. This assay has been cleared by the [place] Food and Drug Administration and its performance characteristics have been verified by the [facility]. 5. ?For questions about this culture, contact the Microbiology Laboratory at [phone]. Interpretive data was last revised on 2019. us Vianney Caballero MD LAB MICROBIOLOGY - GENER AL ORDERABLES Final Result [facility] Department [place] [address] * Type and screen (07/05/2020 9:22 PM MATERIALS SPECIALIST) ABO Rh A Positive [facility] Triston, indirect Negative [facility] Blood specimen (specimen) 07/05/2020 9:22 PM MATERIALS SPECIALIST 07/05/2020 11:27 PM MATERIALS SPECIALIST Narrative [facility] - 07/06/2020 12:51 AM MATERIALS SPECIALIST Has the patient had Daratumumab or Isatuximab in the past 6 months?->Unknown Vianney Caballero MD LAB BLOOD BANK TEST ORDE CURTIS Final Result Performing Organization Address [facility] de Phone Number [facility] [place] [address] * aPTT (07/05/2020 9:22 PM MATERIALS SPECIALIST) aPTT 32 25 - 37 sec [facility] Comment: Interpretive data Heparin therapeutic range: 60-90 seconds Range based on correlation with therapeutic heparin activity range of 0.3-0.7 units/ml. Current interpretive data was last revised on 2019. Blood specimen (specimen) 07/05/2020 9:22 PM MATERIALS SPECIALIST 07/05/2020 11:20 PM MATERIALS SPECIALIST Vianney Caballero MD LAB BLOOD ORDERABLES Fin al Result Performing Organization Address [facility] [place] [address] * ECG 12 lead (07/05/2020 7:29 PM MATERIALS SPECIALIST) Ventricular Rate EKG/Min 91 BPM [facility] Atrial Rate 91 BPM [facility] NH-Interval (MSEC) 168 ms [facility] QRS-Interval (MSEC) 86 ms [facility] QT-Interval (MSEC) 390 ms [facility] QTc 479 ms [facility] P [place] 31 degrees [facility] R [place] -21 degrees [facility] T [place] 40 degrees [facility] Diagnosis Normal sinus rhythm Voltage criteria for left ventricular hypertrophy Abnormal ECG No previous ECGs available This ECG was personally interpreted by the attending physician indicated below Confirmed by ANNALISA/JOE WATSON ([id number]) on 07/10/2020 2:27:32 PM [facility] 07/05/2020 7:29 PM MATERIALS SPECIALIST 07/10/2020 2:27 PM MATERIALS SPECIALIST Vianney Caballero MD ECG ORDERABLES Final Re sult Performing Organization Address [facility] Co de Phone Number [facility] * XR Outside Reference (07/05/2020 6:15 PM MATERIALS SPECIALIST) Impressions [facility] - 07/05/2020 6:15 PM MATERIALS SPECIALIST These images are for Reference purposes only and have not been reviewed by [facility] Radiology. ??There will be no report generated by a [facility] Radiologist. Narrative [facility] - 07/05/2020 6:15 PM MATERIALS SPECIALIST EXAMINATION: ??Images For Reference Purposes Only Vianney Caballero MD IMG XR PROCEDURES Final Result Performing Organization Address [facility] Co de Phone Number [facility] * Hemoglobin A1c (07/05/2020 6:13 PM MATERIALS SPECIALIST) Hgb A1C 5.3 4.0 - 5.6 % [facility] Estimated Average Glucose 105 mg/dL [facility] Comment: The ADA recommends reporting an estimated Average Glucose (eAG) with all Hemoglobin A1c results using the equation derived from a study of 507 normal and diabetic adults. ??Minority populations were underrepresented and children were not included. ?? (Diabetes Care 31:4037-1335, 2008). ??The eAG is not equivalent to a fasting glucose. Blood specimen (specimen) 07/05/2020 6:13 PM MATERIALS SPECIALIST 07/05/2020 6:57 PM MATERIALS SPECIALIST Vianney Caballero MD LAB BLOOD ORDERABLES Fin al Result Performing Organization Address [facility] Co de Phone Number [facility] Department [place] [address] * (ABNORMAL) Differential, auto (07/05/2020 6:13 PM MATERIALS SPECIALIST) Neutrophil abs 19.3(H) 1.7 - 6.5 K/cumm [facility] Imm gran abs 1.6(H) 0.0 - 0.1 K/cumm [facility] Lymphocyte abs 1.5 0.8 - 3.3 K/cumm [facility] Monocyte abs 1.4(H) 0.2 - 0.8 K/cumm [facility] Eosinophil abs 0.2 0.0 - 0.5 K/cumm [facility] Basophil abs 0.1 0.0 - 0.1 K/cumm [facility] Neutrophil pct 80.3 % [facility] Comment: Interpretive Data Percent cell count reference ranges are not reported, since discordance with absolute values may lead to misinterpretation of CBC data. Current Interpretive Data was last revised on 2017. Imm gran pct 6.5 % [facility] Comment: Interpretive Data Percent cell count reference ranges are not reported, since discordance with absolute values may lead to misinterpretation of CBC data. Current Interpretive Data was last revised on 2017. Lymphocyte pct 6.2 % [facility] Comment: Interpretive Data Percent cell count reference ranges are not reported, since discordance with absolute values may lead to misinterpretation of CBC data. Current Interpretive Data was last revised on 2017. Monocyte pct 5.9 % [facility] Comment: Interpretive Data Percent cell count reference ranges are not reported, since discordance with absolute values may lead to misinterpretation of CBC data. Current Interpretive Data was last revised on 2017. Eosinophil pct 0.7 % [facility] Comment: Interpretive Data Percent cell count reference ranges are not reported, since discordance with absolute values may lead to misinterpretation of CBC data. Current Interpretive Data was last revised on 2017. Basophil pct 0.4 % [facility] Comment: Interpretive Data Percent cell count reference ranges are not reported, since discordance with absolute values may lead to misinterpretation of CBC data. Current Interpretive Data was last revised on 2017. Blood specimen (specimen) 07/05/2020 6:13 PM MATERIALS SPECIALIST 07/05/2020 6:54 PM MATERIALS SPECIALIST us Vianney Caballero MD LAB BLOOD ORDERABLES Fin al Result Performing Organization Address [facility] de Phone Number [facility] [place] [address] * (ABNORMAL) D-dimer, quantitative (07/05/2020 6:13 PM MATERIALS SPECIALIST) D-Dimer 1,324(H) <=499 ng/mL FEU [facility] Comment: Interpretive data FDA approved the [...] 68, VTE cut-off 680 ng/ml FEU. References; Schoutnasima HT et al. Brit Med J. 2013;346:f2492. Shaina et al. Annals Int Med. 2015;163:701-11. Current interpretive data was last revised on 2019. Blood specimen (specimen) 07/05/2020 6:13 PM MATERIALS SPECIALIST 07/05/2020 6:58 PM MATERIALS SPECIALIST us Vianney Caballero MD LAB BLOOD ORDERABLES Fin al Result Performing Organization Address [facility] de Phone Number [facility] Department [place] [address] * (ABNORMAL) Protime-INR (07/05/2020 6:13 PM MATERIALS SPECIALIST) PT 14.6(H) 8.6 - 13.0 sec [facility] INR 1.3(H) 0.8 - 1.2 [facility] Comment: Interpretive data Oral anticoagulant therapeutic ranges: Venous thromboembolism prophylaxis or treatment: 2.0-3.0 CARDIOLOGY Standard range: 2.0-3.0 High-intensity range: 2.5-3.5 Refer to indication-specific guidelines for appropriate target ranges for prosthetic heart valve replacement. Current interpretive data was last revised on 2019. Blood specimen (specimen) 07/05/2020 6:13 PM MATERIALS SPECIALIST 07/05/2020 6:58 PM MATERIALS SPECIALIST Vianney Caballero MD LAB BLOOD ORDERABLES Fin al Result Performing Organization Address [facility] Co de Phone Number [facility] Department [place] [address] * (ABNORMAL) CBC with auto differential (07/05/2020 6:13 PM MATERIALS SPECIALIST) Pathologist [facility] WBC 24.0(H) 3.8 - 9.9 K/cumm [facility] Hgb 11.1(L) 11.9 - 15.5 g/dL [facility] Hct 32.5(L) 35.6 - 45.5 % [facility] Plt 420(H) 150 - 400 K/cumm [facility] MPV 9.6 9.1 - 12.3 fL [facility] RBC 3.57(L) 3.90 - 5.20 M/cumm [facility] MCV 91.0 81.3 - 96.4 fL [facility] MCH 31.1 27.1 - 33.3 pg [facility] MCHC 34.2 32.3 - 35.7 g/dL [facility] RDW CV 11.8 11.1 - 14.9 % [facility] RDW SD 39.4 35.7 - 48.1 fL [facility] NRBC abs 0.00 0.00 - 0.01 K/cumm [facility] Blood specimen (specimen) 07/05/2020 6:13 PM MATERIALS SPECIALIST 07/05/2020 6:54 PM MATERIALS SPECIALIST Vianney Caballero MD LAB BLOOD ORDERABLES Fin al Result Performing Organization Address [facility]/ZIP Co de Phone Number [facility] Department [place] [address] * (ABNORMAL) CRP (acute phase) (07/05/2020 6:13 PM MATERIALS SPECIALIST) Pathologist [facility] CRP 236.6(H) <=10.0 mg/L [facility] Comment:Repeated on Dilution Blood specimen (specimen) 07/05/2020 6:13 PM MATERIALS SPECIALIST 07/05/2020 6:54 PM MATERIALS SPECIALIST Vianney Caballero MD LAB BLOOD ORDERABLES Fin al Result Performing Organization Address [facility]/ZIP Co de Phone Number [facility] [place] [address] * (ABNORMAL) Erythrocyte sedimentation rate (07/05/2020 6:13 PM MATERIALS SPECIALIST) [facility] Erythrocyte sedimentation rate 100(H) 1 - 30 mm/hr [facility] Blood specimen (specimen) 07/05/2020 6:13 PM MATERIALS SPECIALIST 07/05/2020 6:54 PM MATERIALS SPECIALIST Vianney Caballero MD LAB BLOOD ORDERABLES Fin al Result Performing Organization Address [facility] [facility] Co de Phone Number [facility] [address] * Lactate (07/05/2020 6:13 PM MATERIALS SPECIALIST) [facility] Lactate 1.0 0.7 - 2.0 mmol/L [facility] Blood specimen (specimen) 07/05/2020 6:13 PM MATERIALS SPECIALIST 07/05/2020 6:54 PM MATERIALS SPECIALIST Vianney Caballero MD LAB BLOOD ORDERABLES Fin al Result Performing Organization Address City/[facility] Co de Phone Number [facility] [place] [address] * Phosphorus (07/05/2020 6:13 PM MATERIALS SPECIALIST) Pathologist [facility] Phosphorus, pl 3.9 2.3 - 4.5 mg/dL [facility] Blood specimen (specimen) 07/05/2020 6:13 PM MATERIALS SPECIALIST 07/05/2020 6:54 PM MATERIALS SPECIALIST Vianney Caballero MD LAB BLOOD ORDERABLES Fin al Result [facility] Department [place] [address] * Magnesium (07/05/2020 6:13 PM MATERIALS SPECIALIST) Pathologist [facility] Magnesium 1.8 1.4 - 2.5 mg/dL [facility] Blood specimen (specimen) 07/05/2020 6:13 PM MATERIALS SPECIALIST 07/05/2020 6:54 PM MATERIALS SPECIALIST Vianney Caballero MD LAB BLOOD ORDERABLES Fin al Result Performing Organization Address [facility] Co de Phone Number [facility] [place] [address] * (ABNORMAL) Hepatic function panel (07/05/2020 6:13 PM MATERIALS SPECIALIST) Bilirubin, total 0.3 0.1 - 1.2 mg/dL [facility] Bilirubin, direct <0.2 0.1 - 0.3 mg/dL [facility] Protein, pl 7.4 6.5 - 8.5 g/dL [facility] Albumin 3.4(L) 3.5 - 5.0 g/dL [facility] Alk phos 199(H) 40 - 130 Units/L [facility] ALT 26 7 - 45 Units/L [facility] AST 34 10 - 45 Units/L [facility] Blood specimen (specimen) 07/05/2020 6:13 PM MATERIALS SPECIALIST 07/05/2020 6:54 PM MATERIALS SPECIALIST Vianney Caballero MD LAB BLOOD ORDERABLES Fin al Result Performing Organization Address City/[facility]/ZIP Co de Phone Number [facility] Department [place] [address] * (ABNORMAL) Basic metabolic panel (07/05/2020 6:13 PM MATERIALS SPECIALIST) Sodium 126(L) 135 - 145 mmol/L [facility] Potassium, pl 4.3 3.3 - 4.9 mmol/L [facility] Chloride 90(L) 97 - 110 mmol/L [facility] CO2 29 22 - 32 mmol/L [facility] Anion gap 7 2 - 15 mmol/L [facility] BUN 16 8 - 25 mg/dL [facility] Creatinine 1.02 0.60 - 1.10 mg/dL [facility] Glucose 101 70 - 199 mg/dL [facility] Comment: Interpretive Data Fasting glucose >/= [...] 2017. Calcium 9.2 8.5 - 10.3 mg/dL [facility] Blood specimen (specimen) 07/05/2020 6:13 PM MATERIALS SPECIALIST 07/05/2020 6:54 PM MATERIALS SPECIALIST us Vianney Caballero MD LAB BLOOD ORDERABLES Fin al Result [facility] [place] [address] * XR Chest 1 View (07/05/2020 5:22 PM MATERIALS SPECIALIST) Anatomical Region Laterality Modality Body, Chest N/A Computed Radiogr aphy 07/06/2020 10:3 0 AM MATERIALS SPECIALIST Impressions 07/06/2020 12:10 PM MATERIALS SPECIALIST Comparison chest radiograph 06/30/2019. The lungs are [...] Pura Rosas M.D. 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 in [place] 06/21/2020 Historical Provider LAB MICROBIOLOGY - GENERA L [...] until manually unheld Given 07/09/2020 3:46 AM MATERIALS SPECIALIST 1,000 mg Given 07/08/2020 5:35 PM MATERIALS SPECIALIST 1,000 mg Given 07/08/2020 9:56 AM MATERIALS SPECIALIST 1,000 mg acetaminophen (TYLENOL) tablet 1,000 mg 1,000 mg, oral, Once, On Wed07/08/20 at 1530, For 1 dose, Phase I, When able to tolerate PO., Indications: PainIndications:Pain Given 07/08/2020 3:10 PM MATERIALS SPECIALIST 500 mg albuterol HFA (PROVENTIL HFA,VENTOLIN HFA,PROAIR HFA) 90 mcg/actuation inhaler 2 puff 2 puff, inhalation, Every 4 hours PRN (director of respiratory therapy), shortness of breath, Starting on Wed07/05/20 at 1805, Indications: Acute Asthma AttackIndications:Acute Asthma Attack Given 07/08/2020 10:29 AM MATERIALS SPECIALIST 2 puf fs amLODIPine (NORVASC) tablet 10 mg 10 mg, oral, Daily, First dose on Wed07/05/20 at 1830, Indications: hypertensionIndications:hypertension Given 07/12/2020 8:59 AM MATERIALS SPECIALIST 10 mg Given 07/11/2020 8:21 AM MATERIALS SPECIALIST 10 mg Given 07/10/2020 9:00 AM MATERIALS SPECIALIST 10 mg amoxicillin-clavulanate (AUGMENTIN) 875-125 mg per tablet 875 mg of amoxicillin 875 mg of amoxicillin, oral, 2 times daily, First dose on Wed07/12/20 at 1000, For 28 doses, Indications: Skin/Soft Tissue InfectionIndications:Skin/Soft Tissue Infection Given 07/12/2020 11:41 AM MATERIALS SPECIALIST 875 mg of amoxicillin atorvastatin (LIPITOR) tablet 10 mg 10 mg, oral, Nightly, First dose on Wed07/05/20 at 2100 Given 07/11/2020 5:20 PM MATERIALS SPECIALIST 10 mg Given 07/10/2020 6:03 PM MATERIALS SPECIALIST 10 mg Given 07/09/2020 5:31 PM MATERIALS SPECIALIST 10 mg baclofen (LIORESAL) tablet 2.5 mg 2.5 mg, oral, 3 times daily with meals, First dose (after last modification) on Wed07/07/20 at 0800 Given 07/12/2020 11:42 AM MATERIALS SPECIALIST 2.5 mg Given 07/11/2020 9:32 PM MATERIALS SPECIALIST 2.5 mg Given 07/11/2020 12:09 PM MATERIALS SPECIALIST 2.5 mg bisacodyl EC (DULCOLAX EC) tablet 10 mg 10 mg, oral, Nightly, First dose on Wed07/10/20 at 2100, Do not crush, chew, cut, dissolve, open or otherwise manipulate tablet/capsule., Indications: constipationIndications:constipation Given 07/11/2020 8:22 PM MATERIALS SPECIALIST 10 mg Given 07/10/2020 8:45 PM MATERIALS SPECIALIST 10 mg busPIRone (BUSPAR) tablet 5 mg 5 mg, oral, Daily, First dose on Wed07/05/20 at 1830 Given 07/12/2020 9:00 AM MATERIALS SPECIALIST 5 mg Given 07/11/2020 8:21 AM MATERIALS SPECIALIST 5 mg Given 07/10/2020 9:01 AM MATERIALS SPECIALIST 5 mg cefepime (MAXIPIME) 1,000 mg/10 mL in sterile water (premix) 1,000 mg 1,000 mg, intravenous, at 20 mL/hr, Administer over 30 Minutes, Every 8 hours, First dose on Wed07/06/20 at 1600, Indications: Bone/Joint Infection, Skin/Soft Tissue InfectionIndications:Bone/Joint Infection,Skin/Soft Tissue Infection New Bag 07/12/2020 9:08 AM MATERIALS SPECIALIST 1,000 mg 20 mL/hr New Bag 07/12/2020 2:34 AM MATERIALS SPECIALIST 1,000 mg 20 mL/hr New Bag 07/11/2020 6:26 PM MATERIALS SPECIALIST 1,000 mg 20 mL/hr diphenhydrAMINE (BENADRYL) tab/cap 25 mg 25 mg, oral, Once, On Mercedes 07/11/20 at 2015, For 1 dose Given 07/11/2020 8:22 PM MATERIALS SPECIALIST 25 mg diphenhydrAMINE (BENADRYL) tab/cap 25 mg 25 mg, oral, Once, On Wed07/12/20 at 0615, For 1 dose Given 07/12/2020 5:43 AM MATERIALS SPECIALIST 25 mg docusate sodium (COLACE) capsule 100 mg 100 mg, oral, Daily, First dose on Wed07/05/20 at 1830, Indications: constipationIndications:constipation Given 07/10/2020 9:00 AM MATERIALS SPECIALIST 100 mg Given 07/09/2020 8:05 AM MATERIALS SPECIALIST 100 mg Given 07/08/2020 9:55 AM MATERIALS SPECIALIST 100 mg docusate sodium (COLACE) capsule 200 mg 200 mg, oral, Daily, First dose (after last modification) on Mercedes 07/11/20 at 0900, Indications: constipationIndications:constipation Given 07/12/2020 9:00 AM MATERIALS SPECIALIST 200 mg Given 07/11/2020 8:21 AM MATERIALS SPECIALIST 200 mg enoxaparin (LOVENOX) syringe 40 mg 40 mg, subcutaneous, Daily (for enoxaparin), First dose (after last modification) on Rust 07/06/20 at 2130, Indications: Deep Vein Thrombosis PreventionIndications:Deep Vein Thrombosis Prevention Given 07/11/2020 8:22 PM MATERIALS SPECIALIST 40 mg Right Lower Abdomen Given 07/07/2020 8:46 PM MATERIALS SPECIALIST 40 mg Le ft Lower Abdomen Given 07/06/2020 9:17 PM MATERIALS SPECIALIST 40 mg Le ft Lower Abdomen fluticasone propionate (FLONASE) 50 mcg/actuation nasal spray 2 spray 2 spray, each nostril, Daily, First dose on Wed07/05/20 at 1830 Given 07/12/2020 9:40 AM MATERIALS SPECIALIST 2 sprays Given 07/10/2020 9:00 AM MATERIALS SPECIALIST 2 sprays Given 07/09/2020 8:14 AM MATERIALS SPECIALIST 2 sprays furosemide (LASIX) tablet 40 mg 40 mg, oral, 2 times daily, First dose on Wed07/05/20 at 2100, Indications: Edema, On hold since Mercedes 07/11/2020 at 0650 until manually unheldIndications:Edema Given 07/06/2020 9:03 AM MATERIALS SPECIALIST 40 mg Given 07/05/2020 8:36 PM MATERIALS SPECIALIST 40 mg furosemide (LASIX) tablet 40 mg 40 mg, oral, Daily, First dose on Wed07/11/20 at 2015 Given 07/12/2020 9:00 AM MATERIALS SPECIALIST 40 mg Given 07/11/2020 8:22 PM MATERIALS SPECIALIST 40 mg gabapentin (NEURONTIN) capsule 400 mg 400 mg, oral, Every 8 hours, First dose on Wed07/05/20 at 1830 Given 07/12/2020 11:41 AM MATERIALS SPECIALIST 400 mg Given 07/12/2020 2:34 AM MATERIALS SPECIALIST 400 mg Given 07/11/2020 5:21 PM MATERIALS SPECIALIST 400 mg haloperidol (HALDOL) injection 0.5 mg 0.5 mg, intravenous, Administer over 5 Minutes, Once as needed, nausea, vomiting, Starting on 07/08/20 at 1446, For 1 dose, Phase I, If nausea/vomiting not relieved by ondansetron within 30 minutes or if ondansetron has been given within the last 6 hours. Given 07/08/2020 3:40 PM MATERIALS SPECIALIST 0.5 mg HYDROmorphone (DILAUDID) 1 mg/mL injection - ADS Override Pull Starting on 07/06/20 at 1934, For 1 dose, MONICA JENNINGS: cabinet override HYDROmorphone (DILAUDID) injection 0.2 mg 0.2 mg, intravenous, Administer over 2 Minutes, Every 10 min PRN, 1st line for pain, Starting on 07/08/20 at 1446, Phase I, Notify Anesthesiologist if total PACU dose reaches 2 mg and pain score 5/10 or more., Indications: PainIndications:Pain Given 07/08/2020 4:00 PM MATERIALS SPECIALIST 0.2 mg Given 07/08/2020 3:50 PM MATERIALS SPECIALIST 0.2 mg Given 07/08/2020 3:40 PM MATERIALS SPECIALIST 0.2 mg HYDROmorphone (DILAUDID) injection 0.4 mg 0.4 mg, intravenous, Administer over 2 Minutes, Every 10 min PRN, 1st line for pain, Starting on 07/06/20 at 1926, Phase I, Notify Anesthesiologist if total PACU dose reaches 2 mg and pain score 5/10 or more., Indications: PainIndications:Pain Given 07/06/2020 8:16 PM MATERIALS SPECIALIST 0.2 mg Given 07/06/2020 7:54 PM MATERIALS SPECIALIST 0.4 mg Given 07/06/2020 7:43 PM MATERIALS SPECIALIST 0.4 mg HYDROmorphone (DILAUDID) injection 0.5 mg 0.5 mg, intravenous, Administer over 2 Minutes, Once, On 07/06/20 at 2330, For 1 dose Given 07/06/2020 11:52 PM MATERIALS SPECIALIST 0.5 mg HYDROmorphone (DILAUDID) injection 0.5 mg 0.5 mg, intravenous, Administer over 2 Minutes, Once, On 07/07/20 at 0700, For 1 dose Given 07/07/2020 6:53 AM MATERIALS SPECIALIST 0.5 mg HYDROmorphone (DILAUDID) injection 0.5 mg 0.5 mg, intravenous, Administer over 2 Minutes, Once as needed, breakthrough pain, Starting on 07/07/20 at 1035, For 1 dose Given 07/07/2020 12:1 9 PM MATERIALS SPECIALIST 0.5 mg HYDROmorphone (DILAUDID) injection 0.5 mg 0.5 mg, intravenous, Administer over 2 Minutes, Every 3 hours PRN, breakthrough pain, Starting on 07/07/20 at 1433 Given 07/09/2020 10:05 AM MATERIALS SPECIALIST 0.5 mg Given 07/09/2020 4:15 AM MATERIALS SPECIALIST 0.5 mg Given 07/09/2020 1:30 AM MATERIALS SPECIALIST 0.5 mg HYDROmorphone (DILAUDID) injection 0.5 mg 0.5 mg, intravenous, Administer over 2 Minutes, Once, On Mercedes 07/11/20 at 2045, For 1 dose Given 07/11/2020 8:25 PM MATERIALS SPECIALIST 0.5 mg HYDROmorphone (DILAUDID) injection 1 mg 1 mg, intravenous, Administer over 2 Minutes, Every 3 hours PRN, 3rd line for pain, Starting on Tu07/09/20 at 1049 Given 07/09/2020 1:46 PM MATERIALS SPECIALIST 1 mg LORazepam (ATIVAN) tablet 0.5 mg 0.5 mg, oral, Once, On 07/06/20 at 0015, For 1 dose Given 07/06/2020 12:34 AM MATERIALS SPECIALIST 0.5 mg LORazepam (ATIVAN) tablet 0.5 mg 0.5 mg, oral, Once, On Wed07/08/20 at 0645, For 1 dose Given 07/08/2020 6:29 AM MATERIALS SPECIALIST 0.5 mg LORazepam (ATIVAN) tablet 0.5 mg 0.5 mg, oral, Once, On Wed07/08/20 at 1030, For 1 dose Given 07/08/2020 10:18 AM MATERIALS SPECIALIST 0.5 mg LORazepam (ATIVAN) tablet 0.5 mg 0.5 mg, oral, Every 8 hours PRN, anxiety, Starting on Wed07/10/20 at 1247 Given 07/11/2020 10:20 AM MATERIALS SPECIALIST 0.5 mg Given 07/11/2020 2:35 AM MATERIALS SPECIALIST 0.5 mg Given 07/10/2020 6:56 PM MATERIALS SPECIALIST 0.5 mg LORazepam (ATIVAN) tablet 0.5 mg 0.5 mg, oral, Every 6 hours PRN, anxiety, Starting on Wed07/11/20 at 1145 Given 07/12/2020 9:07 AM MATERIALS SPECIALIST 0.5 mg Given 07/11/2020 11:54 PM MATERIALS SPECIALIST 0.5 mg Given 07/11/2020 5:21 PM MATERIALS SPECIALIST 0.5 mg losartan (COZAAR) tablet 50 mg 50 mg, oral, Daily, First dose on Wed07/05/20 at 1830 Given 07/12/2020 9:00 AM MATERIALS SPECIALIST 50 mg Given 07/11/2020 8:22 AM MATERIALS SPECIALIST 50 mg Given 07/10/2020 9:01 AM MATERIALS SPECIALIST 50 mg metoprolol tartrate (LOPRESSOR) immediate release tablet 25 mg 25 mg, oral, Every 6 hours scheduled, First dose on Wed07/05/20 at 1830 Given 07/12/2020 11:44 AM MATERIALS SPECIALIST 25 mg Given 07/12/2020 5:06 AM MATERIALS SPECIALIST 25 mg Given 07/11/2020 11:14 PM MATERIALS SPECIALIST 25 mg morphine injection 4 mg 4 mg, intravenous, Administer over 4 Minutes, Every 4 hours PRN, 2nd line for pain, Starting on Wed07/09/20 at 0641 Given 07/12/2020 11:50 AM MATERIALS SPECIALIST 4 mg Given 07/12/2020 6:09 AM MATERIALS SPECIALIST 4 mg Given 07/11/2020 11:09 PM MATERIALS SPECIALIST 4 mg ondansetron ODT (ZOFRAN-ODT) disintegrating tablet 4 mg 4 mg, oral, Every 4 hours PRN, nausea, vomiting, Starting on Wed07/05/20 at 2333 Given 07/10/2020 10:40 AM MATERIALS SPECIALIST 4 mg Given 07/09/2020 10:23 AM MATERIALS SPECIALIST 4 mg Given 07/06/2020 12:34 AM MATERIALS SPECIALIST 4 mg ondansetron ODT (ZOFRAN-ODT) disintegrating tablet 8 mg 8 mg, oral, Every 8 hours PRN, nausea, vomiting, Starting on Wed07/11/20 at 1145 oxyCODONE (ROXICODONE) tablet 10 mg 10 mg, oral, Every 4 hours PRN, 1st line for pain, Starting on Wed07/09/20 at 1049, Indications: PainIndications:Pain Given 07/12/2020 9:07 AM MATERIALS SPECIALIST 10 mg Given 07/12/2020 5:21 AM MATERIALS SPECIALIST 10 mg Given 07/11/2020 9:32 PM MATERIALS SPECIALIST 10 mg oxyCODONE (ROXICODONE) tablet 5 mg 5 mg, oral, Every 4 hours PRN, 2nd line for pain, Starting on Wed07/06/20 at 0732, Indications: PainIndications:Pain Given 07/09/2020 3:47 AM MATERIALS SPECIALIST 5 mg Given 07/08/2020 11:30 PM MATERIALS SPECIALIST 5 mg Given 07/08/2020 10:18 AM MATERIALS SPECIALIST 5 mg oxyCODONE (ROXICODONE) tablet 5 mg 5 mg, oral, Once, On Wed07/07/20 at 0500, For 1 dose, Indications: PainIndications:Pain Given 07/07/2020 4:31 AM MATERIALS SPECIALIST 5 mg oxyCODONE (ROXICODONE) tablet 5 mg 5 mg, oral, Once as needed, 1st line for pain, Starting on Wed07/08/20 at 1514, For 1 dose, Phase I, When able to tolerate PO., Indications: PainIndications:Pain Given 07/08/2020 3:10 PM MATERIALS SPECIALIST 5 mg oxyCODONE (ROXICODONE) tablet 5 mg 5 mg, oral, Once, On Wed07/09/20 at 0645, For 1 dose, Indications: PainIndications:Pain Given 07/09/2020 6:10 AM MATERIALS SPECIALIST 5 mg oxyCODONE (ROXICODONE) tablet 5 mg 5 mg, oral, Every 4 hours PRN, 1st line for pain, Starting on Wed07/09/20 at 0641, Indications: PainIndications:Pain Given 07/09/2020 8:05 AM MATERIALS SPECIALIST 5 mg oxyCODONE-acetaminophen (PERCOCET) 5-325 mg per tablet 1 tablet 1 tablet, oral, Every 4 hours PRN, 1st line for pain, 2nd line for pain, Starting on Wed07/05/20 at 1642 Given 07/06/2020 5:00 AM MATERIALS SPECIALIST 1 tablet Given 07/06/2020 12:34 AM MATERIALS SPECIALIST 1 tablet Given 07/05/2020 5:34 PM MATERIALS SPECIALIST [address] (PROTONIX) extended release tablet 40 mg 40 mg, oral, Daily, First dose on Wed07/05/20 at 1830, Do not crush, chew, cut, dissolve, open or otherwise manipulate tablet/capsule., Indications: Stress Ulcer ProphylaxisIndications:Stress Ulcer Prophylaxis Given 07/12/2020 9:00 AM MATERIALS SPECIALIST 40 mg Given 07/11/2020 8:22 AM MATERIALS SPECIALIST 40 mg Given 07/10/2020 9:00 AM MATERIALS SPECIALIST 40 mg ramelteon (ROZEREM) tablet 8 mg 8 mg, oral, Nightly, First dose on Wed07/10/20 at 2100, Indications: Sleep-Onset InsomniaIndications:Sleep-Onset Insomnia Given 07/11/2020 8:22 PM MATERIALS SPECIALIST 8 m g Given 07/10/2020 8:45 PM MATERIALS SPECIALIST 8 mg sodium chloride 0.9% bolus 500 mL 500 mL, intravenous, Once, On Wed07/10/20 at 0800, For 1 dose New Bag 07/10/2020 9:10 AM MATERIALS SPECIALIST 500 mL sodium chloride 0.9% flush 0.5-20 mL 0.5-20 mL, intra-catheter, Every 8 hours scheduled, First dose on Wed07/05/20 at 1645, Flush volume based on line type and size. Given 07/12/2020 5:06 AM MATERIALS SPECIALIST 10 mL Given 07/11/2020 8:30 PM MATERIALS SPECIALIST 10 mL Given 07/11/2020 12:10 PM MATERIALS SPECIALIST 10 mL sodium chloride 0.9% flush 0.5-20 mL 0.5-20 mL, intra-catheter, As needed, line care, Starting on Wed07/05/20 at 1609, Flush volume based on line type and size. Flush before and after each use. Given 07/08/2020 3:10 AM MATERIALS SPECIALIST 10 mL Given 07/08/2020 2:18 AM MATERIALS SPECIALIST 10 mL Given 07/07/2020 11:22 PM MATERIALS SPECIALIST 10 mL sodium chloride 0.9% flush 5-10 mL 5-10 mL, intra-catheter, Every 8 hours scheduled, First dose on Wed07/07/20 at 1400, Flush volume based on line type, size, and protocol. Given 07/11/2020 11:09 PM MATERIALS SPECIALIST 10 mL Given 07/11/2020 12:10 PM MATERIALS SPECIALIST 10 mL Given 07/11/2020 6:23 AM MATERIALS SPECIALIST 10 mL sodium chloride 0.9% flush 5-10 mL 5-10 mL, intra-catheter, As needed, line care, with each use, Starting on 07/07/20 at 1038, Flush volume based on line type, size, and protocol. spironolactone (ALDACTONE) tablet 25 mg 25 mg, oral, Daily, First dose on Wed07/05/20 at 1830, On hold since Wed07/12/2020 at 0919 until manually unheld Given 07/12/2020 9:00 AM MATERIALS SPECIALIST 25 mg Given 07/11/2020 8:21 AM MATERIALS SPECIALIST 25 mg Given 07/06/2020 9:02 AM MATERIALS SPECIALIST 25 mg triamcinolone (KENALOG) 0.1 % cream topical, 2 times daily, First dose on Mercedes 07/11/20 at 2100, Apply to affected area: rash Given 07/12/2020 11:41 AM MATERIALS SPECIALIST vancomycin 1,250 mg/262.5 mL in sodium chloride 0.9% (premix) 1,250 mg 1,250 mg (rounded from 1,312.5 mg = 15 mg/kg ? 87.5 kg), intravenous, Administer over 60 Minutes, Every 24 hours, First dose on Wed07/06/20 at 1600, Indications: Bone/Joint Infection, Skin/Soft Tissue InfectionIndications:Bone/Joint Infection,Skin/Soft Tissue Infection New Bag 07/08/2020 6:58 PM MATERIALS SPECIALIST 1,250 m g New Bag 07/07/2020 6:37 PM MATERIALS SPECIALIST 1,250 mg Given 07/06/2020 6:05 PM MATERIALS SPECIALIST 1,250 mg vancomycin 1,750 mg/517.5 mL sodium chloride 0.9% (premix) 1,750 mg 1,750 mg, intravenous, Administer over 120 Minutes, Every 24 hours, First dose (after last modification) on Wed07/09/20 at 1800, Indications: Bone/Joint Infection, Skin/Soft Tissue InfectionIndications:Bone/Joint Infection,Skin/Soft Tissue Infection New Bag 07/10/2020 6:05 PM MATERIALS SPECIALIST 1,750 m g New Bag 07/09/2020 5:31 PM MATERIALS SPECIALIST 1,750 mg documented in this encounter Discontinued Medications Medication [...] Recently Administered Medications Times are shown in MATERIALS SPECIALIST. Scheduled Medication Order 07/10/2020 07/11/2020 07/12/2020 acetaminophen [...] at 2100 1803 (Given - Provider: Genie Ellitot RN) 1720 (Given - Provider: Breanna Rodriguez [...] at 1830 0901 (Given - Provider: Genie Elliott, RN) 0821 (Given - Provider: Breanna Rodriguez RN) 0900 (Given - Provider: Kenzie Salazar, DARCI) cefepime (MAXIPIME) 1,000 mg/10 mL in sterile water (premix) 1,000 mg (CANCELED) 1,000 mg, intravenous, at 20 mL/hr, Administer over 30 Minutes, Every 8 hours, First dose on Wed07/06/20 at 1600, Indications: Bone/Joint Infection, Skin/Soft Tissue Infection 0205 (New Bag - Provider: Jesse Waterman, DARCI)0900 (New Bag - Provider: Genie Elliott RN)1805 (New Bag - Provider: Genie Elliott RN) [...] Indications: constipation 0900 (Given - Provider: Genie Elliott RN) docusate sodium (COLACE) capsule 200 mg 200 mg, oral, Daily, First dose (after last modification) on Wed07/11/20 at 0900, Indications: constipation 0821 (Given - Provider: Breanna Rodriguez RN) 0900 (Given - Provider: Kenzie Salazar, DARCI) enoxaparin (LOVENOX) syringe 40 mg 40 mg, subcutaneous, Daily (for enoxaparin), First dose (after last modification) on Wed07/06/20 at 2130, Indications: Deep Vein Thrombosis Prevention 2100 (Dose Auto Held - Provider: Bashir Peter MD PhD) 0647 (MAR Unhold - Provider: Obed Martinez MD)2021 (Given - Provider: Santy Brandt RN) fluticasone propionate (FLONASE) 50 mcg/actuation nasal spray 2 spray 2 spray, each nostril, Daily, First dose on Wed07/05/20 at 1830 0900 (Given - Provider: Genie Elliott RN) 1021 (Not Given - Provider: Breanna Rodriguez RN - Reason: Medication not available) 0940 (Given - Provider: Kenzie Salazar RN) furosemide (LASIX) tablet 40 mg 40 mg, oral, Daily, First dose on Wed07/11/20 at 2014 2021 (Given - Provider: Santy Brandt RN) 0900 (Given - Provider: Kenzie Salazar, DARCI) gabapentin (NEURONTIN) capsule 400 mg 400 mg, oral, Every 8 hours, First dose on Wed07/05/20 at 1830 0206 (Given - Provider: Jesse Waterman RN)0900 (Given - Provider: Genie Elliott RN)1803 (Given - Provider: Genie Elliott RN) 0240 (Given - Provider: Jesse Waterman RN)1020 (Given - Provider: Breanna Rodriguez RN)1721 (Given - Provider: Breanna Rodriguez RN) 0234 (Given - Provider: Qi Vidal RN)1141 (Given - Provider: Kenzie Salazar RN) HYDROmorphone (DILAUDID) injection 0.5 mg (COMPLETED) 0.5 mg, intravenous, Administer over 2 Minutes, Once, On Wed07/11/20 at 204, For 1 dose 2024 (Given - Provider: Santy Brandt, DARCI) losartan (COZAAR) tablet 50 mg 50 mg, [...] Waterman RN)1148 (Given - Provider: Genie Elliott, DARCI)1803 (Given - Provider: Genie Elliott RN)2354 (Given - Provider: Jesse Waterman RN) 0622 (Given - Provider: Jesse Waterman RN)1210 (Given - Provider: Breanna Rodriguez RN)1721 (Given - Provider: Breanna Rodriguez RN)2314 (Given - Provider: Santy Brandt RN) 0506 (Given - Provider: Qi Vidal RN)1144 (Given - Provider: Kenzie Salazar, DARCI) pantoprazole DR (PROTONIX) extended release tablet 40 mg 40 mg, oral, Daily, First dose on Wed07/05/20 at 1830, Do not crush, chew, cut, dissolve, open or otherwise manipulate tablet/capsule., Indications: Stress Ulcer Prophylaxis 09 (Given - Provider: Genie Elliott RN) 08 (Given - Provider: Breanna Rodriguez, DARCI) 0900 [...] dose 0910 (New Bag - Provider: Genie Elliott, DARCI) sodium chloride 0.9% flush 0.5-20 mL 0.5-20 mL, intra-catheter, Every 8 hours scheduled, First dose on Wed07/05/20 at 1645, Flush volume based on line type and size. 0620 (Given - Provider: Jesse Waterman, DARCI)1300 (Given - Provider: Genie Elliott, DARCI)2046 (Given - Provider: Jesse Waterman RN) 0623 [...] Waterman RN)1300 (Given - Provider: Genie Elliott, DARCI)2046 (Given - Provider: Jesse Waterman RN) 0623 (Given - Provider: Jesse Waterman RN)121 (Given - Provider: Breanna Rodriguez, DARCI)230 (Given - Provider: Santy Brandt, DARCI) 0407 (Not Given - Provider: Qi Vidal, DARCI [...] 2 puff, inhalation, Every 4 hours PRN (director of respiratory therapy), shortness of breath, Starting on Wed07/05/20 at 1805, Indications: Acute Asthma Attack LORazepam (ATIVAN) tablet 0.5 mg (CANCELED) 0.5 mg, oral, Every 8 hours PRN, anxiety, Starting on Wed07/10/20 at 1247 1259 (Given - Provider: Genie Elliott RN)1856 (Given - Provider: Genie Elliott RN) 0235 (Given - Provider: Jesse Waterman, DARCI)1020 (Given - Provider: Breanna Rodriguez, DARCI) LORazepam (ATIVAN) tablet 0.5 mg 0.5 mg, oral, Every 6 hours PRN, anxiety, Starting on Wed07/11/20 at 1145 1721 (Given - Provider: Breanna Rodriguez, DARCI)2354 (Given - Provider: Qi Vidal, DARCI) 0907 (Given - Provider: Elizape Banzuela Panis, RN) morphine injection 4 mg 4 mg, intravenous, Administer over 4 Minutes, Every 4 hours PRN, 2nd line for pain, Starting on Wed07/09/20 at 0641 0206 (Given - Provider: Jesse Waterman RN)0618 (Given - Provider: Jesse Waterman RN)1040 (Given - Provider: Genie Elliott, DARCI)1553 (Given - Provider: Genie Elliott RN)204 (Given - Provider: Jesse Waterman RN) 0235 [...] Rodriguez, DARCI)1721 (Given - Provider: Breanna Rodriguez, DARCI)2132 (Given - Provider: Santy Brandt, DARCI) 0521 (Given - Provider: Kaylah Jones, ADRCI)0907 (Given - Provider: Kenzie Salazar, DARCI) sodium chloride 0.9% flush 0.5-20 mL 0.5-20 [...] Count Last Ordered Date First Ordered Date ondansetron ODT (ZOFRAN-ODT) disintegrating tablet 8 mg 1 07/11/2020 ramelteon (ROZEREM) tablet 8 mg 1 0 naloxone (NARCAN) 0.4 mg/mL injection 0.04-0.4 mg 1 07/08/2020 ondansetron (ZOFRAN) injection 4 mg 2 07/0807/06/2020 sodium chloride 0.9 % irrigation 2 07/08/20 20 07/06/2020 sterile water irrigation 1 07/08/2020 lidocaine PF (XYLOCAINE) 10 mg/mL (1 %) preservative free injection 10-20 mg 1 07/07/2020 sodium chloride 0.9% flush 5-10 mL 1 2019 diphenhydrAMINE (BENADRYL) i njection 12.5 mg 1 07/06/2020 Lactated Ringer's (LR) infusion 2 0 prochlorperazine (COMPAZINE) injection 10 mg 1 07/06/2020 sodium chloride 0.9% flush 0.5-20 mL 2 06/25 albuterol HFA (PROVENTIL HFA ,VENTOLIN HFA,PROAIR HFA) 90 mcg/actuation inhaler 2 puff 1 07/05/2020 baclofen (LIORESAL) tablet 2.5 mg 1 020 enoxaparin (LOVENOX) syringe 40 mg 1 2019 Lab Orders Without Results Count Last Ordered [...] 20 days out and asymptomatic. 07/11/2020 Carly Villatoro Nasim 06/21/2020 06/21/2020 07/11/2020 4:[address] COVID: Recovered 07/11/2020 07/11/2020 11/08/2020 3:05 AM CDT documented as of this encounter Care Teams Assembler Dc Field Yoke Relationship Specialty Start Date End Date Bernardo Edwards MD [address] [place] [address] PCP - General 07/05/20 07/06/20 Hernando Velasquez MD [address] [place] [address] PCP - General 07/07/20 07/07/20 [place] [address] [place] [id number] PCP - General 07/08/20 01/06/22 Jose Manuel Gruber MD Fellow Orthopedic Surgery 07/06/19 documented as of this encounter
--- OUTSIDE RECORDS SUMMARY | 2024-08-13 05:00 | XMS_ITS | Encounter Summary ---
Author Organization [facility] Healthcare Address [address] [place] [address] Care Team Providers Care Assistant Accounting Manager Name Role Phone Jose Manuel Gruber MD Unavailable [phone] Bernardo Edwards MD Primary Care Provider [phone] Encounter Details Date Type Department Care Team (Late st Contact Info) Description 07/06/2020 4:39 PM CARPET SEWER Anesthesia Event [facility] Operating Room [address] [place] [address] Cas Reid MD [address] [facility] [id number] [place] [address] Wilian Blount MD [address] [place] [address] Anesthesia Record Procedure Summary Procedure Name Responsible Anesthesiologist Anesthesia Start Time Anesthesia Stop Time REMOVAL HARDWARE - TIBIA (Left: Thigh) Cas Reid MD 07/06/20 1639 07/06/20 1935 Events Date Time Event Comment 07/06/2020 1639 An Start Transport from floor to OR 1649 In Room 1658 An Start Data 1709 An Induction The patient was reevaluated immediately before moderate or deep sedation use and before anesthesia induction. 1710 An Intubation 1720 Anesthesia Ready 1735 Proc Start 1738 Incision Start 1741 1902 Proc Fin 1905 An Extubation 1910 an stop data 1910 Out of Room 1930 Handoff to RN I completed my handoff [...] disposition at the time of handoff: PACU 1934 An Stop Meds Name Total fentaNYL 100 mcg propofol 150 mg rocuronium 10 mg succinylcholine 80 mg phenylephrine 100 mcg/mL 100 mcg ondansetron PF (ZOFRAN) 2 mg/mL injectio n 4 mg phenylephrine infusion (100 mcg/mL) 1.15 mg famotidine 20 mg cefepime 1,000 mg vancomycin 1,250 mg/262.5 mL in sodium c hloride 0.9% (premix) 1,250 mg 1,250 mg LR 500 mL * Agents Name O2% N2O O2 N2O Sevoflurane Inspired Sevoflurane * Blood No blood administrations on file. Lines, Drains, and Airways Type Details Placement Removal RETIRED Surgical Site 06/28/19; 2255; Le ft; Leg; 07/08/20; 1200 06/28/19 2255 by Malena Lara RN 07/08/20 1200 by Bernardo Burgess RN RETIRED Wound 06/29/19; 0000; MASD (Moisture associated skin damage); Left; Breast; linear redness/excoriation under breast; 06/27/24 (Retired LDA, Removed/Completed by [facility] with LDA Utility); 1213 (Retired LDA, Removed/Completed by [facility] with LDA Utility) 06/29/19 0000 by Lizette Dutton RN 06/27/24 1213 by Discharge Provider, Automatic RETIRED Surgical Site 06/29/19; 0000; No ; Right, Lower; Ankle/malleolus; 06/27/24 (Retired LDA, Removed/Completed by [facility] with LDA Utility); 1213 (Retired LDA, Removed/Completed by [facility] with LDA Utility) 06/29/19 0000 by Lizette Dutton RN 06/27/24 1213 by Discharge Provider, Automatic RETIRED Wound 07/05/20; 1530; Yes; Open wound; Left; Porter/tibia; 07/08/20; 1200 07/05/20 1530 by Janis Stephens NP 07/08/20 1200 by Bernardo Burgess RN Peripheral IV Placement Date: 07/05/20; Placement Time: 154; Catheter Size: 22 G; Orientation: Right; Location: Forearm; Technique: Anatomical landmarks; Inserted by: Trinity Crabtree RN; Insertion Attempts: 1; Patient Tolerance: Tolerated well; Removal Date: 07/11/20; Removal Time: 0645; Removal Reason: Infiltrated 07/05/20 1545 by Janis Stephens NP 07/11/20 0645 by Jesse Waterman RN ETT Placement Date: 07/06/20; Placement Time: 1734 (created via procedure documentation); Mask Ventilation: 1; Technique: Video laryngoscopy; Type: ETT - single; Single Lumen Tube Size: 7 mm; Cuffed: Yes; Laryngoscope: Cherry; Blade Size: 3; Location: Oral; Insertion Attempts: 1; Placement Verification: Auscultation; Removal Date: 07/06/20; Removal Time: 19007/06/20 173 by Juan Whiteside CRNA 07/06/20 190 by Juan Whiteside CRNA documented in this encounter Social History Tobacco [...] Postprocedure Evaluation - Waylon Grimes MD - 07/06/2020 7:36 PM CST Patient: Celestina Ewing Procedure Summary Date: 07/06/20 Room / Location: [facility] OR POD 2 ROOM 210 / [facility] OR POD 2 Anesthesia Start: 1638 Anesthesia Stop: 1934 Procedures: REMOVAL HARDWARE - TIBIA (Left Thigh) IRRIGATION AND DEBRIDEMENT - TIBIA (Left Leg Lower) Diagnosis: Leg skin lesion, left (Leg skin lesion, left [L98.9]) Surgeons: Ethel Amaro MD Responsible Provider: Cas Reid MD Anesthesia Type: general ASA Status: 3 Anesthesia Type: general Last vitals BP 145/52 (BP Location: Right arm, Patient Position: Sitting) Pulse 66 Temp 37.1 ??C (98.8 ??F)(Oral) Resp 20 SpO2 98% Anesthesia Post Evaluation Patient location during evaluation: PACU Patient participation: complete - patient participated Level of consciousness: fully awake Pain management: adequate Airway patency: adequate Evidence of recall: no Anesthetic complications: no Cardiovascular status: acceptable and hemodynamically stable Respiratory status: acceptable and room air Hydration status: euvolemic Pt is: normothermic Nausea/Vomiting status: none Comments: Plan to place on O2 for transport ET SEWER * Anesthesia Procedure Notes - Juan Whiteside CRNA - 07/06/2020 5:34 PM CSTAssociated Order(s): Airway Airway Patient location: pre-op Urgency: elective Indications for airway management: anesthesia Difficult airway: no Staff: Placed by: INTERIM CONTROLLER: Juan Whiteside CRNA Emergent airway documentation: Risks and benefits discussed: yes Consent obtained: yes Consent given by: patient Airway prep: Preoxygenated: yes Patient position: sniffing Mask difficulty assessment: 1 - vent by mask Spontaneous ventilation during airway: present Sedation level during airway: GA Final airway details: Final airway type: endotracheal airway Tube type: ETT ETT size: 7.0 mm Cuffed: yes Technique used for successful ETT placement: video laryngoscopy Devices/Methods used in placement: intubating stylet Insertion site: oral Blade type: Cherry Video blade type: CMAC and Cooley Blade size: 3 Cormack-Lehane (video): grade I - full view of glottis Cuff inflated with: air ETT to teeth: 22 cm Placement verified by: auscultation Airway secured with: silk tape Number of attempts: 1 Ventilation between attempts: BVM ET SEWER * Anesthesia Preprocedure Evaluation - Cas Reid MD - 07/06/2020 6:41 AM CST Images from the original note were not included. Anesthesia Evaluation Pepper Kapil Ewing is a 69 y.o. female Procedure(s): REMOVAL HARDWARE - TIBIA/FIBULA IRRIGATION AND DEBRIDEMENT - TIBIA Pre-Op Diagnosis Codes: * Leg skin lesion, left [L98.9] HISTORY HPI 69yo F with pmhx COPD on 4L baseline, COVID-19 positive, presents for I&D tibia. Patient with longstanding wound healing issue of [...] genitalia ??? History of hyperemesis gravidarum ??? Hyperosmolar hyponatremia ??? Insomnia ??? Irritable bowel syndrome with constipation and diarrhea ??? Menopause present ??? Recurrent falls while walking ??? Transfusion-dependent anemia ??? Traumatic rhabdomyolysis (CMS/HCC) ??? Well child examination ??? COVID-19 ??? Left leg wound Past Medical History: Diagnosis Date ??? Asthma [...] ??? Iodine Unknown ??? Latex Unknown ??? [place]-3 Fatty Acids Unknown ??? Other Unknown seafood ??? Sulfa (Sulfonamide Antibiotics) Unknown ??? Valium [Diazepam] Unknown Taking? Last Dose Start Date End Date Provider Aerochamber Plus Flow-Vu spacer 12/01/19 -- Lucille Junior MD albuterol HFA (PROVENTIL HFA,VENTOLIN HFA,PROAIR HFA) 90 mcg/actuation inhaler -- -- Lucille Junior MD amLODIPine (NORVASC) 10 mg tablet -- -- Lucille Junior MD atorvastatin (LIPITOR) 10 mg tablet 07/04/19 -- Leroy Reddy MD Take 1 tablet (10 mg total) by mouth nightly baclofen (LIORESAL) 5 mg tablet 07/04/19 -- Leroy Reddy MD Take 0.5 tablets (2.5 mg total) by mouth 3 (three) times a day with meals busPIRone (BUSPAR) 5 mg tablet 01/07/20 -- Lucille Junior MD cholecalciferol (cholecalciferol) 400 unit capsule -- -- Lucille Junior MD docusate sodium (COLACE) 100 mg capsule -- -- Lucille Junior MD enoxaparin (LOVENOX) 40 mg/0.4 mL syringe 03/29/20 -- Lucille Junior MD famciclovir (FAMVIR) 250 mg tablet -- -- Provider, MD Lucille fluticasone propionate (FLONASE) 50 mcg/actuation nasal spray 12/18/17 -- Lucille Junior MD fluticasone propionate (FLOVENT HFA) 110 mcg/actuation inhaler -- -- Lucille Junior MD furosemide (LASIX) 40 mg tablet -- -- Lucille Junior MD gabapentin (NEURONTIN) 400 mg capsule 07/04/19 -- Leroy Reddy MD Take 1 capsule (400 mg total) by mouth every 8 (eight) hours ipratropium-albuteroL (DUO-NEB) 0.5-2.5 mg/3 mL nebulizer solution 12/20/19 -- Lucille Junior MD lidocaine (LIDODERM) 5 % 06/14/19 -- Lucille Junior MD LORazepam (ATIVAN) 0.5 mg tablet 05/04/20 -- Lucille Junior MD metoprolol (LOPRESSOR) 25 mg tablet 07/04/19 -- Leroy Reddy MD Take 1 tablet (25 mg total) by mouth every 6 (six) hours [facility] powder 03/01/20 -- Lucille Junior MD olmesartan (BENICAR) 40 mg tablet -- -- Vernon, MD Lucille ondansetron (ZOFRAN) 4 mg tablet 12/30/19 -- Lucille Junior MD oxyCODONE (ROXICODONE) 10 mg tablet 07/06/19 -- Pieadd Cardenas MD Take 1 tablet (10 mg total) by mouth every 4 (four) hours as needed for pain oxyCODONE-acetaminophen (PERCOCET) 5-325 mg per tablet 01/07/20 -- Lucille Junior MD pantoprazole DR (PROTONIX) 40 mg EC tablet -- -- Provider, MD Lucille primidone (MYSOLINE) 50 mg tablet 05/05/20 -- ProviderLucille MD spironolactone (ALDACTONE) 25 mg tablet 03/06/20 03/06/21 Vinod Deshpande MD Take 1 tablet (25 mg total) by mouth daily vitamin E (AQUASOL E) 400 unit capsule -- -- Provider, MD Lucille Ongoing Comment Hilda Red, OT 06/19/2019 9:37 PM gato wong Current Facility-Administered Medications: ??? albuterol HFA (PROVENTIL HFA,VENTOLIN HFA,PROAIR HFA) 90 mcg/actuation inhaler 2 puff, 2 puff, inhalation, Q4H PRN (RT) ??? amLODIPine (NORVASC) tablet 10 mg, 10 mg, oral, Daily, 10 mg at 07/05/202035 ??? atorvastatin (LIPITOR) tablet 10 mg, 10 mg, oral, Nightly, 10 mg at 07/05/202035 ??? [Held by Provider] baclofen (LIORESAL) tablet 2.5 mg, 2.5 mg, oral, TID with meals, Stopped at 07/05/202137 ??? busPIRone (BUSPAR) tablet 5 mg, 5 mg, oral, Daily, 5 mg at 07/05/202108 ??? docusate sodium (COLACE) capsule 100 mg, 100 mg, oral, Daily, 100 mg at 07/05/202034 ??? [Held by Provider] enoxaparin (LOVENOX) syringe 40 mg, 40 mg, subcutaneous, Daily-2099 ??? fluticasone propionate (FLONASE) 50 mcg/actuation nasal spray 2 spray, 2 spray, each nostril, Daily ??? furosemide (LASIX) tablet 40 mg, 40 mg, oral, BID, 40 mg at 07/05/202035 ??? gabapentin (NEURONTIN) capsule 400 mg, 400 mg, oral, Q8H, 400 mg at 07/05/202035 ??? losartan (COZAAR) tablet 50 mg, 50 mg, oral, Daily, 50 mg at 07/05/202108 ??? metoprolol tartrate (LOPRESSOR) immediate release tablet 25 mg, 25 mg, oral, Q6H KELIN, 25 mg at 07/06/20 0500 ??? ondansetron ODT (ZOFRAN-ODT) disintegrating tablet 4 mg, 4 mg, oral, Q4H PRN, 4 mg at 07/06/20 0034 ??? oxyCODONE-acetaminophen (PERCOCET) 5-325 mg per tablet 1 tablet, 1 tablet, oral, Q4H PRN, 1 tablet at 07/06/20 0500 ??? pantoprazole DR (PROTONIX) extended release tablet 40 mg, 40 mg, oral, Daily, 40 mg at 07/05/202036 ??? sodium chloride 0.9% flush 0.5-20 mL, 0.5-20 mL, intra-catheter, Q8H KELIN, 10 mL at 07/06/20 0500 ??? sodium chloride 0.9% flush 0.5-20 mL, 0.5-20 mL, intra-catheter, PRN ??? spironolactone (ALDACTONE) tablet 25 mg, 25 mg, oral, Daily, 25 mg at 07/05/202035 Social History Tobacco Use Smoking Status Never Smoker Smokeless Tobacco Never Used Tobacco Comment Patient does not smoke Substance and Sexual Activity Alcohol Use Not Currently Substance and Sexual Activity Drug Use Never Family History Problem Relation Age of Onset ??? Heart disease Mother ??? Diabetes Mother ??? Emphysema Father ??? Diabetes Father ??? Diabetes Brother Vitals: 07/05/20199907/05/20 20407/06/20 0500 BP: 133/62 126/62 Pulse: 90 92 87 Resp: Temp: 36.9 ??C (98.4 ??F) 37.1 ??C (98.8 ??F) SpO2: 100% 96% PT: 07/05/2020: 14.6 sec* INR: 07/05/2020: 1.3* APTT: 07/05/2020: 32 sec Hgb A1C: 07/05/2020: 5.3 % CBC RBC: 07/05/2020: 3.57 M/cumm* RDW: No results found for requested labs within last 720 hours. MCHC: 07/05/2020: 34.2 g/dL MCH: 07/05/2020: 31.1 pg MCV: 07/05/2020: 91.0 fL Hct: 07/05/2020: 32.5 %* Hgb: 07/05/2020: 11.1 g/dL* WBC: 07/05/2020: 24.0 K/cumm* MPV: 07/05/2020: 9.6 fL Platelets: 07/05/2020: 420 K/cumm* RDW CV: 07/05/2020: 11.8 % RDW Sd: 07/05/2020: 39.4 fL BMP Glucose: 07/05/2020: 101 mg/dL Calcium: 07/05/2020: 9.2 mg/dL Sodium: 07/05/2020: 126 mmol/L* Potassium: 07/05/2020: 4.3 mmol/L CO2: 07/05/2020: 29 mmol/L Chloride: 07/05/2020: 90 mmol/L* BUN: 07/05/2020: 16 mg/dL Creatinine: 07/05/2020: 1.02 mg/dL Relevant diagnostics: ECG(s): N/A Echocardiogram(s): 05/2019 Interpretation Summary The left ventricle is normal in size. Left ventricular systolic function is normal. Ejection Fraction = 55-60%. There is trace tricuspid regurgitation. Right ventricular systolic pressure is normal. No aortic stenosis . Mild aortic regurgitation. There is no pericardial effusion. Grade I diastolic dysfunction, (abnormal relaxation pattern). Stress test(s): N/A Cardiac catheterization(s): N/A PFT(s): N/A Vascular studies: N/A Other: N/A DOS Physical Exam Medical history, medications, and allergies reviewed. Attestation: I endorse the findings of the anesthesia pre-evaluation assessment dated: 07/06/2020. Airway Exam: Mallampati: III Cervical ROM: limited extension TM distance: 3 Current state: Patient's current state is cooperative. Anesthesia Plan ASA 3 My patient is approved for the Anesthesia Controlled Medication protocol when under care of a INTERIM CONTROLLER Planned anesthesia: General Team communication plan: oral ET tube Induction: Induction: intravenous. Postoperative Plan: Postoperative administration opioids intended. No postoperative mechanical ventilation intended. Patient's planned disposition post procedure is Floor. Informed Consent: Discussed plan with INTERIM CONTROLLER. Anesthesia plan and risks discussed with patient. Consent and Attending signature: I and/or my designee have discussed the anesthesia plan, benefits, possible alternatives, parental presence at time of induction (if indicated), and clinically relevant risks that may include dental injury, unintentional awareness, and/or other complications. The patient and/or parent/legal guardian understand, and agree to proceed. All questions answered. ET SEWER ET SEWER documented in this encounter Plan of Treatment Not on file documented as of this encounter Procedures Procedure Name Priority Date/Time Associated Diagnosis Comments CA AN PROCEDURE PLACEHOLDER Routine 07/06/2020 5:34 PM CARPET SEWER CA AN ELECTIVE ENDOTRACHEAL AIRWAY Routine 07/06/2020 5:34 PM CARPET SEWER documented in this encounter Results * CA AN ELECTIVE ENDOTRACHEAL AIRWAY, CA AN PROCEDURE PLACEHOLDER (07/06/2020 5:34 PM CARPET SEWER) Narrative Juan Whiteside CRNA - 07/06/2020 5:34 PM CARPET SEWER Juan Whiteside CRNA ? 07/06/2020 ??5:35 PM Airway Patient location: pre-op Urgency: elective Indications for airway management: anesthesia Difficult airway: no Staff: Placed by: INTERIM CONTROLLER: Juan Whiteside CRNA Emergent airway documentation: Risks and benefits discussed: yes Consent obtained: yes Consent given by: patient Airway prep: Preoxygenated: yes Patient position: sniffing Mask difficulty assessment: 1 - vent by mask Spontaneous ventilation during airway: present Sedation level during airway: GA Final airway details: Final airway type: endotracheal airway Tube type: ETT ETT size: 7.0 mm Cuffed: yes Technique used for successful ETT placement: video laryngoscopy Devices/Methods used in placement: intubating stylet Insertion site: oral Blade type: Cherry Video blade type: CMAC and Cooley Blade size: 3 Cormack-Lehane (video): grade I - full view of glottis Cuff inflated with: air ETT to teeth: 22 cm Placement verified by: auscultation Airway secured with: silk tape Number of attempts: 1 Ventilation between attempts: BVM us Cas Reid MD ANESTHESIA ORDERABLES Final Re sult documented in this encounter Visit Diagnoses Not on filedocumented in this encounter Administered Medications Inactive Administered Medications - up to 3 most recent administrations Medication Order MAR Action Action Date Dose Rate Site cefepime (MAXIPIME) injection intravenous, As needed, Starting on 07/06/20 at 1805, Anesthesia Intra-op Given 07/06/2020 6:05 PM CARPET SEWER 1,000 mg famotidine (PEPCID) injection Administer over 2 Minutes, As needed, Starting on 07/06/20 at 1805, Anesthesia Intra-op Given 07/06/2020 6:05 PM CARPET SEWER 20 mg fentaNYL (SUBLIMAZE) preservative free injection intravenous, As needed, Starting on 07/06/20 at 1709, Anesthesia Intra-op Given 07/06/2020 5:27 PM CARPET SEWER 50 mcg Given 07/06/2020 5:09 PM CARPET SEWER 50 mcg Lactated Ringer's (LR) infusion Continuous PRN, Starting on 07/06/20 at 1658, Anesthesia Intra-op New Bag 07/06/2020 4:58 PM CARPET SEWER ondansetron (ZOFRAN) injection intravenous, Administer over 2 Minutes, As needed, Starting on 07/06/20 at 1810, Anesthesia Intra-op Given 07/06/2020 6:10 PM CARPET SEWER 4 mg phenylephrine (GUERITA-SYNEPHRINE) 0.5 mg/5 mL (100 mcg/mL) in sodium chloride 0.9% (premix) intravenous, As needed, Starting on 07/06/20 at 1739, Anesthesia Intra-op Given 07/06/2020 5:39 PM CARPET SEWER 100 mcg phenylephrine (GUERITA-SYNEPHRINE) 5 mg/50 mL (100 mcg/mL) in sodium chloride 0.9% (premix) Continuous PRN, Starting on 07/06/20 at 1739, Anesthesia Intra-op Rate/Dose Change 07/06/2020 5:53 PM CARPET SEWER 0.1 mcg/kg/min 5.25 mL/hr Rate/Dose Change 07/06/2020 5:50 PM CARPET SEWER 0.3 mcg/kg/min 15. 75 mL/hr New Bag 07/06/2020 5:39 PM CARPET SEWER 0.5 mcg/kg/min 26.3 mL/h r propofoL (DIPRIVAN) IV intravenous, As needed, Starting on 07/06/20 at 1709, Anesthesia Intra-op Given 07/06/2020 5:09 PM CARPET SEWER 150 mg rocuronium (ZEMURON) injection intravenous, As needed, Starting on 07/06/20 at 1709, Anesthesia Intra-op Given 07/06/2020 5:09 PM CARPET SEWER 10 mg succinylcholine (ANECTINE) injection intravenous, As needed, Starting on 07/06/20 at 1709, Anesthesia Intra-op Given 07/06/2020 5:09 PM CARPET SEWER 80 mg vancomycin 1,250 mg/262.5 mL in sodium chloride 0.9% (premix) 1,250 mg 1,250 mg (rounded from 1,312.5 mg = 15 mg/kg ? 87.5 kg), intravenous, Administer over 60 Minutes, Every 24 hours, First dose on 07/06/20 at 1600, Indications: Bone/Joint Infection, Skin/Soft Tissue InfectionIndications:Bone/Joint Infection,Skin/Soft Tissue Infection New Bag 07/08/2020 6:58 PM CARPET SEWER 1,250 m g New Bag 07/07/2020 6:37 PM CARPET SEWER 1,250 mg Given 07/06/2020 6:05 PM CARPET SEWER 1,250 mg documented in this encounter Care Teams Assistant Accounting Manager Relationship Specialty Start Date End Date Bernardo Edwards MD [address] [place] [address] PCP - General 07/05/20 07/06/20 Jose Manuel Gruber MD Fellow Orthopedic Surgery 07/06/19 documented as of this encounter
--- OUTSIDE RECORDS SUMMARY | 2024-08-13 05:01 | XMS_ITS | Encounter Summary ---
Author Organization [facility] Home Care Servic es Address [address] [place] [address] Phone Care Team Providers Care Vacuum Metalizer Operator Name Role Phone Jose Manuel Gruber MD Unavailable [phone] Bernardo Edwards MD Primary Care Provider [phone] Reason for Visit * Auth/Cert Specialty Diagnoses / Procedures Referred By Contac t Referred To Contact Referral ID Status Reason Start Date Expiration Date Visits Re quested Visits Authorized [id number] 1 1 Encounter Details Date Type Department Care Team ([facility] st Contact Info) Description 08/13/2019 Home Care Visit [facility] Home Health [address] [address] [address] [place] [address] Hilda Red OT OT NON OASIS DISCHARGE Social History Tobacco Use Types Packs/Day Years Used Date Smoking Tobacco: Never Smokeless Tobacco: Never Comments:Patient does not sm roman Hunger Vital Sign Answer Date Recorded Worried [...] Diagnoses Not on filedocumented in this encounter Home Health Visit - Care Plan Visit Details Visit Type -OT Non-OASIS Dis charge Discipline -Occupational Therapy Problems Problem Description Start Date Status Goals Interve ntions Homebound Status Disciplines: [facility], Physical Therapy, Occupational Therapy Patient's homebound status 06/15/2019 Active 1 goal linked to scheduled/docume nted intervention 1 goal intervention scheduled/documen jeannie in this visit Monitor patient's vital signs every home health visit Disciplines: Mcc, Physical Therapy, Occupational Therapy Monitor patient's vital signs every home health visit. 06/15/2019 Active 1 goal linked to scheduled/docume nted intervention 1 goal intervention scheduled/documen jeannie in this visit Goals Goal Associated Problem Outcome Goal Met? Visit Notes Patient recieves care at the most appropriate care setting Description: Patient receives care at the most appropriate care setting. Homebound Status No Measure vital signs during every home health visit during episode of care Description: Home guard rail installer to measure vital signs during every home health visit during episode of care. Monitor patient's vital signs every home health visit No Interventions Intervention Associated Problem/Goal Status Variance Visit Notes Homebound Status Description: Patient is homebound due to difficulty in ambulation as evidenced by hx of chronic low back pain , needing a walker to ambulate, a fall risk and needing assistance with ADLS and personal care Problem:Homebound Status Goal:Patient recieves care at the most appropriate care setting Scheduled Monitor Vital Signs Description: Monitor blood pressure, pulse, oxygen saturation, respirations Problem:Monitor patient's vital signs every home health visit Goal:Measure vital signs during every home health visit during episode of care Scheduled documented in this encounter Home Health Visit - Actions and Narratives Actions Pt has not been resumed at e nd of cert. documented in this encounter Care Teams Vacuum Metalizer Operator Relationship Specialty Start Date End Date Bernardo Edwards MD [facility] [place] [address] PCP - General 06/14/19 07/04/20 Jose Manuel Gruber MD Fellow Orthopedic Surgery 07/06/19 documented as of this encounter
--- OUTSIDE RECORDS SUMMARY | 2024-08-13 05:01 | XMS_ITS | Encounter Summary ---
Author Organization [facility] Healthcare Address [address] [place] [address] Care Team Providers Care Conveyor Man Name Role Phone Jose Manuel Gruber MD Unavailable [phone] Bernardo Edwards MD Primary Care Provider [phone] Reason for Visit * Diagnostic Imaging (Routine) - Closed Specialty Diagnoses / Procedures Referred By Contac t Referred To Contact Diagnoses Closed displaced bimalleolar fracture of right ankle with routine healing, subsequent encounter Procedures XR Ankle Right 3 or More Views Jose Manuel Gruber MD Phone: tel: fax: [facility] Referral ID Status Reason Start Date Expiration Date Visits Re quested Visits Authorized [id number] Closed 01/18/2020 07/29/2021 1 1 Encounter Details Date Type Department Care Team (Latest Contact Info) Description 02/01/2020 1:36 PM CDT - 02/01/2020 11:59 PM CDT Hospital Encounter [facility] Radiology [facility] [address] [place], [place] [id number] Jose Manuel Gruber MD [address] [place] [address] Discharge Disposition: Discharge to home or self [...] Time of Discharge Aerochamber Plus Flow-Vu spacer 2019 amLODIPine (NORVASC) 10 mg tabletIndications :hypertension Take 10 mg by mouth daily. Indications: high blood pressure atorvastatin (LIPITOR) 10 mg tablet Take 1 tablet (10 mg total) by mouth nightly 1 tablet 07/04/2019 baclofen (LIORESAL) 5 mg tablet Take 0.5 tablets (2.5 mg total) by mouth 3 (three) times a day with meals 1 tablet 07/04/2019 busPIRone (BUSPAR) 5 mg tablet 01/07/2020 cholecalciferol (VITAMIN D-3) 400 unit capsuleIndication s:Vitamin D deficiency Take 400 Units by mouth daily. Indications: Vitamin D deficiency docusate sodium (COLACE) 100 mg capsuleIndication s:constipation Take 100 mg by mouth daily. Indications: constipation famciclovir (FAMVIR) 250 mg tabletIndications :Other (complete free text reason below),herpes Take 250 mg by mouth 2 (two) times a day. Indications: Other (complete free text reason below), herpes fluticasone propionate (FLONASE) 50 mcg/actuation nasal spray Administer 2 sprays into each nostril daily 12/18/2017 fluticasone propionate (FLOVENT HFA) 110 mcg/actuation inhalerIndication s:Maintenance Therapy for Asthma Inhale 2 puffs daily. Indications: Controller Medication for Asthma furosemide (LASIX) 40 mg tabletIndications :Edema Take 40 mg by mouth 2 (two) times a day. Indications: visible water retention ipratropium-albut Torrie (DUO-NEB) 0.5-2.5 mg/3 mL nebulizer solution 12/20/2019 lidocaine (LIDODERM) 5 % Place 1 patch on the skin daily 06/14/2019 metoprolol (LOPRESSOR) 25 mg tablet Take 1 tablet (25 mg total) by mouth every 6 (six) hours 1 tablet 07/04/2019 olmesartan (BENICAR) 40 mg tabletIndications :hypertension Take 40 mg by mouth daily. Indications: high blood pressure ondansetron (ZOFRAN) 4 mg tablet 12/30/[address] (PROTONIX) 40 mg EC tabletIndications :Stress Ulcer Prophylaxis Take 40 mg by mouth daily. Indications: Stress Ulcer Prophylaxis vitamin E (AQUASOL E) 400 unit capsuleIndication s:Vitamin E Deficiency Take 800 Units by mouth daily. Indications: deficiency of vitamin E albuterol HFA (PROVENTIL HFA,VENTOLIN HFA,PROAIR HFA) 90 mcg/actuation inhalerIndication s:Acute Asthma Attack Inhale 2 puffs every 4 (four) hours as needed for shortness of breath. Indications: Asthma Attack 3 cefdinir (OMNICEF) 300 mg capsule 07/29/2019 0 cetirizine (ZyrTEC) 10 mg tabletIndications :Seasonal Allergic Rhinitis Take 10 mg by mouth daily. Indications: Seasonal Runny Nose 0 cloNIDine (CATAPRES) 0.2 mg tabletIndications :hypertension Take 0.2 mg by mouth 2 (two) times a day. Indications: high blood pressure 0 cyclobenzaprine (FLEXERIL) 10 mg tablet Take 1 tablet (10 mg total) by mouth 3 (three) times a day 1 tablet 07/04/2019 0 dicyclomine (BENTYL) 20 mg tablet TK 1 T PO TID 3 06/14/2019 0 diphenhydrAMINE (diphenhydrAMINE) 25 mg capsule 25 mg 06/13/2019 0 doxycycline hyclate 100 mg capsule 11/25/2019 0 enoxaparin (LOVENOX) 40 mg/0.4 mL syringe 01/07/2020 02 0 estradiol (ESTRACE) 0.5 mg tabletIndications :hormone replacement Take 0.5 mg by mouth daily. Indications: hormone replacement 0 gabapentin (NEURONTIN) 400 mg capsule Take 1 capsule (400 mg total) by mouth every 8 (eight) hours 1 capsule 07/04/2019 2 hydrALAZINE (APRESOLINE) 50 mg tabletIndications :hypertension Take 50 mg by mouth 3 (three) times a day. Indications: high blood pressure 0 LORazepam (ATIVAN) 0.5 mg tablet 01/08/2020 0 LORazepam (ATIVAN) 1 mg tablet 11/06/2019 0 magnesium citrate solution Take 296 mL by mouth daily as needed (constipation) 1 mL 07/04/2019 0 omeprazole (PriLOSEC) 40 mg capsule Take by mouth daily before breakfast 1 06/03/2019 0 oxyCODONE (ROXICODONE) 10 mg tabletIndications :Pain Take 1 tablet (10 mg total) by mouth every 4 (four) hours as needed for pain 20 tablet 07/06/2019 0 oxyCODONE-acetami nophen (PERCOCET) 5-325 mg per tablet 01/07/2020 0 polyethylene glycol (MIRALAX) 17 gram/dose powderIndications :Bowel Evacuation Take 17 g by mouth daily. Indications: emptying of the bowel 0 primidone (MYSOLINE) 50 mg tabletIndications :Essential Tremor Take 50 mg by mouth 2 (two) times a day. Indications: Essential Tremor 0 triamcinolone (KENALOG) 0.1 % cream Apply 1 application topically 2 (two) times a day as needed 0 06/14/2019 0 documented as of this encounter Discharge Disposition Disposition Code Departure Means Destination Discharge to home or self care documented in this encounter Plan of Treatment Not on file documented as of this encounter Procedures Procedure Name Priority Date/Time Associated Diagnosis Comments XR TIBIA FIBULA LEFT 2 VIEWS Schedule Routine, Read Routine (OP Routine) 02/01/2020 2:01 PM CDT Type III open displaced comminuted fracture of shaft of left tibia with routine healing, subsequent encounter XR ANKLE RIGHT 3 OR MORE VIEWS Schedule Routine, Read Routine (OP Routine) 02/01/2020 2:01 PM CDT Closed displaced bimalleolar fracture of right ankle with routine healing, subsequent encounter documented in this encounter Results * XR Tibia Fibula Left 2 Views (02/01/2020 2:01 PM CDT) Anatomical Region Laterality Modality Lower Extremities, Lower Leg Left Com puted Radiography 02/01/2020 3:13 PM CDT Impressions 02/01/2020 6:11 PM CDT 1. No significant healing across an internally fixated proximal left tibial fracture and noninstrumented proximal left fibular shaft fracture. 2. Healing internally fixated right medial malleolus fracture in near-anatomic alignment. Dictated by: Florencia Lim M.D. The radiology attending physician has personally reviewed this study, and had reviewed and/or edited this written report and agrees with it. Electronically signed by: MD Ji Kaur 02/01/2020 6:11 PM CDT EXAMINATION: X-ray ankle right 3 or more views, x-ray tibia fibula left 2 views HISTORY: ??Left tibial shaft and right medial malleolus fractures, follow-up FINDINGS: 3 views of the right ankle and 2 views of the left tibia-fibula are submitted for interpretation with comparison to prior studies 09/05/2019. Left tibia-fibula: There is a left knee arthroplasty in expected position. There is equivocal healing across an internally fixated, mildly displaced proximal left tibial fracture. There is a mildly displaced proximal fibular shaft fracture. Additionally there is a single screw fixating the medial malleolus and plate and screw construct fixating a distal left fibular fracture. Overall alignment is unchanged. Right ankle: Healing, internally fixated right medial malleolus fracture in near-anatomic alignment. There is no instrumentation fracture, hardware loosening, or lucency. ?? There is no widening of the ankle mortise. ??There is heterotopic ossification at the tip of the distal fibula secondary to old injury. There is disuse osteopenia of the right foot and ankle. Procedure Note Sonya Huerta MD - 02/01/2020 EXAMINATION: X-ray ankle right 3 or more views, x-ray tibia fibula left 2 views HISTORY: Left tibial shaft and right medial malleolus fractures, follow-up FINDINGS: 3 views of the right ankle and 2 views of the left tibia-fibula are submitted for interpretation with comparison to prior studies 09/05/2019. Left tibia-fibula: There is a left knee arthroplasty in expected position. There is equivocal healing across an internally fixated, mildly displaced proximal left tibial fracture. There is a mildly displaced proximal fibular shaft fracture. Additionally there is a single screw fixating the medial malleolus and plate and screw construct fixating a distal left fibular fracture. Overall alignment is unchanged. Right ankle: Healing, internally fixated right medial malleolus fracture in near-anatomic alignment. There is no instrumentation fracture, hardware loosening, or lucency. There is no widening of the ankle mortise. There is heterotopic ossification at the tip of the distal fibula secondary to old injury. There is disuse osteopenia of the right foot and ankle. IMPRESSION: 1. No significant healing across an internally fixated proximal left tibial fracture and noninstrumented proximal left fibular shaft fracture. 2. Healing internally fixated right medial malleolus fracture in near-anatomic alignment. Dictated by: Florencia Lim M.D. The radiology attending physician has personally reviewed this study, and had reviewed and/or edited this written report and agrees with it. Electronically signed by: Leandro Huerta MD Jose Manuel Gruber MD IMG XR PROCEDURES Final Re sult * XR Ankle Right 3 or More Views (02/01/2020 2:01 PM CDT) Anatomical Region Laterality Modality Lower Extremities, Ankle Right Compute d Radiography 02/01/2020 3:13 PM CDT Impressions 02/01/2020 6:11 PM CDT 1. No significant healing across an internally fixated proximal left tibial fracture and noninstrumented proximal left fibular shaft fracture. 2. Healing internally fixated right medial malleolus fracture in near-anatomic alignment. Dictated by: Florencia Lim M.D. The radiology attending physician has personally reviewed this study, and had reviewed and/or edited this written report and agrees with it. Electronically signed by: Leandro Huerta MD Narrative 02/01/2020 6:11 PM CDT EXAMINATION: X-ray ankle right 3 or more views, x-ray tibia fibula left 2 views HISTORY: ??Left tibial shaft and right medial malleolus fractures, follow-up FINDINGS: 3 views of the right ankle and 2 views of the left tibia-fibula are submitted for interpretation with comparison to prior studies 09/05/2019. Left tibia-fibula: There is a left knee arthroplasty in expected position. There is equivocal healing across an internally fixated, mildly displaced proximal left tibial fracture. There is a mildly displaced proximal fibular shaft fracture. Additionally there is a single screw fixating the medial malleolus and plate and screw construct fixating a distal left fibular fracture. Overall alignment is unchanged. Right ankle: Healing, internally fixated right medial malleolus fracture in near-anatomic alignment. There is no instrumentation fracture, hardware loosening, or lucency. ?? There is no widening of the ankle mortise. ??There is heterotopic ossification at the tip of the distal fibula secondary to old injury. There is disuse osteopenia of the right foot and ankle. Procedure Note Sonya Huerta MD - 02/01/2020 EXAMINATION: X-ray ankle right 3 or more views, x-ray tibia fibula left 2 views HISTORY: Left tibial shaft and right medial malleolus fractures, follow-up FINDINGS: 3 views of the right ankle and 2 views of the left tibia-fibula are submitted for interpretation with comparison to prior studies 09/05/2019. Left tibia-fibula: There is a left knee arthroplasty in expected position. There is equivocal healing across an internally fixated, mildly displaced proximal left tibial fracture. There is a mildly displaced proximal fibular shaft fracture. Additionally there is a single screw fixating the medial malleolus and plate and screw construct fixating a distal left fibular fracture. Overall alignment is unchanged. Right ankle: Healing, internally fixated right medial malleolus fracture in near-anatomic alignment. There is no instrumentation fracture, hardware loosening, or lucency. There is no widening of the ankle mortise. There is heterotopic ossification at the tip of the distal fibula secondary to old injury. There is disuse osteopenia of the right foot and ankle. IMPRESSION: 1. No significant healing across an internally fixated proximal left tibial fracture and noninstrumented proximal left fibular shaft fracture. 2. Healing internally fixated right medial malleolus fracture in near-anatomic alignment. Dictated by: Florencia Lim M.D. The radiology attending physician has personally reviewed this study, and had reviewed and/or edited this written report and agrees with it. Electronically signed by: Leandro Huerta MD us Jose Manuel Gruber MD IMG XR PROCEDURES Final Re sult documented in this encounter Visit Diagnoses Not on filedocumented in this encounter Care Teams Conveyor Man Relationship Specialty Start Date End Date Bernardo Edwards MD [facility] [place] [address] PCP - General 06/14/19 07/04/20 Jose Manuel Gruber MD Fellow Orthopedic Surgery 07/06/19 documented as of this encounter
--- OUTSIDE RECORDS SUMMARY | 2024-08-13 05:01 | XMS_ITS | Encounter Summary ---
Author Organization [facility] Address [address] [place] [address] Phone Care Team Providers Care Supply Specialist Name Role Phone Jose Manuel Gruber MD Unavailable [phone] Bernardo Edwards MD Primary Care Provider [phone] Reason for Visit * Reason Comments Follow-up Fracture Follow-up Fracture Encounter Details Date Type Department Care Team (Late st Contact Info) Description 02/01/2020 1:20 PM CDT Office Visit [facility] Orthopaedic Surgery [address] [facility] Medicine [address]th [place] [address] [place] [address] Jona Sauceda MD [address] [facility] [address] [place] [address] Type III open displaced comminuted fracture of shaft of left tibia with routine healing, subsequent encounter (Primary Dx); Closed displaced bimalleolar fracture of right ankle with routine healing, subsequent encounter Social History Tobacco Use Types Packs/Day [...] as of this encounter Progress Notes * Jona Sauceda MD - 02/01/2020 1:20 PM CDT Chief Complaint: Follow-up status post irrigation debridement open reduction fixation left proximal tibia periprosthetic fracture by Dr. Shoemaker 30 June 2019 Interval history: Patient has been continued nonweightbearing on the left leg. She also reports left ankle stiff. Herleft knee is stiff as well Objective: Well-developed, well-nourished, in no acute distress. Alert and oriented x 3. Normal respirations, no dyspnea with speaking. The uninjured extremities are warm and show good perfusion; neurologically intact to light touch throughout. Skin is intact and there is no lymphedema. The left lower extremity demonstrates healed traumatic laceration. There is a punctate area of scabbed over hole in the middle of the healed incision. No surrounding erythema. Left knee range of motion from about 5?? to 50??. The leg is stable with range of motion. Mild tenderness to palpation. Grossly neurovascular intact left lower extremity Imaging Left tibia demonstrates lack of healing of the proximal tibia periprosthetic fracture. Maintained alignment. No screw loosening or breakage. Assessment: Ms. Ewing is a 69 y.o. female who sustained a left side open periprosthetic proximal tibia fracture status post irrigation debridement ORIF. I discussed with her that I am not totally convinced that the fracture is healed. May be stable enough to support weight-bearing with a walker. We will recommend that she be progressed to weight-bearing as tolerated. Again let pain be her guide. Range of motion without restrictions. If she fails this trial and then she would likely require some radical revision knee replacement with the tibial diaphyseal fixation. documented in this encounter Plan of Treatment Not on file documented as of this encounter Procedures Procedure Name Priority Date/Time Associated Diagnosis Comments XR ANKLE RIGHT 3 OR MORE VIEWS Schedule Routine, Read Routine (OP Routine) 02/01/2020 2:01 PM CDT Closed displaced bimalleolar fracture of right ankle with routine healing, subsequent encounter XR TIBIA FIBULA LEFT 2 VIEWS Schedule Routine, Read Routine (OP Routine) 02/01/2020 2:01 PM CDT Type III open displaced comminuted fracture of shaft of left tibia with routine healing, subsequent encounter documented in [...] sult documented in this encounter Visit Diagnoses Diagnosis Type III open displaced comminuted fracture of shaft of left tibia with routine healing, subsequent encounter- Primary Closed displaced bimalleolar fracture of right ankle with routine healing, subsequent encounter documented in this encounter Care Teams Supply Specialist Relationship Specialty Start Date End Date Bernardo Edwards MD [address] [place] [address] PCP - General 06/14/19 07/04/20 Jose Manuel Gruber MD Fellow Orthopedic Surgery 07/06/19 documented as of this encounter
--- OUTSIDE RECORDS SUMMARY | 2024-08-13 05:01 | XMS_ITS | Encounter Summary ---
Author Organization [facility] Care Team Providers Care Acid Pumper Name Role Phone Jose Manuel Gruber MD Unavailable [phone] Bernardo Edwards MD Primary Care Provider [phone] Encounter Details Date Type Department Care Team (Latest Contact Info) Description 10/24/2019 Travel Social History Tobacco Use Types Packs/Day Years [...] AM CDT Sexual Orientation Not on file COVID-19 Exposure Response Date Recorded In the last month, have you been in contact with someone who was confirmed or suspected to have Coronavirus / COVID-19? No / Unsure 10/24/2019 9:32 AM CDT documented as of this encounter Plan of Treatment Not on file documented as of this encounter Visit Diagnoses Not on filedocumented in this encounter Care Teams Acid Pumper Relationship Specialty Start Date End Date Bernardo Edwards MD [address] [place] [address] PCP - General 06/14/19 07/04/20 Jose Manuel Gruber MD Fellow Orthopedic Surgery 07/06/19 documented as of this encounter
--- OUTSIDE RECORDS SUMMARY | 2024-08-13 05:01 | XMS_ITS | Encounter Summary ---
Author Organization [facility] Address [address] [facility] [address] [place] [address] Care Team Providers Care Rhit Name Role Phone Jose Manuel Gruber MD Unavailable Bernardo Edwards MD Primary Care Provider [phone] Encounter Details Date Type Department Care Team (Late st Contact Info) Description 02/02/2020 Telephone [facility] Cardiology [address] [facility] [address] [place] [address] Xiomara Oakley NP [address] [facility] [address] [place] [address] Social History Tobacco Use Types Packs/Day Years [...] encounter Miscellaneous Notes * Telephone Encounter - Emili Draper RN - 02/05/2020 10:17 AM CDT Lm on vm with message per CT below. Pt instructed to call back with any questions. * Telephone Encounter - Emili Draper RN - 02/02/2020 2:22 PM CDT LM on VM fro pt to return call to discuss 30 day monitor results per CT. I placed a 30 day event monitor b/c she has a history of syncope without evaluation for arrhythmic etiology. ??She also had a hospitalization for sepsis during which time she had some AFib with RVR. ??The Afib was thought to be secondary to her critical illness. ?? Please call her to let her know the event monitor was fine. She had no more afib, and no abnormal rhythms that would explain her history of syncope. Keep appt with Dr. Deshpande next month. Thanks. * Telephone Encounter - Emili Draper RN - 02/02/2020 2:21 PM CDT ----- Message from Xiomara Oakley NP sent at 02/02/2020 12:49 PM CDT ----- ----- Message ----- From: Candace Arita MA Sent: 02/02/2020 10:29 AM CDT To: Xiomara Oakley NP, Vinod Deshpande MD documented in this encounter Plan of Treatment Not on file documented as of this encounter Visit Diagnoses Not on filedocumented in this encounter Care Teams Rhit Relationship Specialty Start Date End Date Bernardo Edwards MD [facility] [place] [address] PCP - General 06/14/19 07/04/20 Jose Manuel Gruber MD Fellow Orthopedic Surgery 07/06/19 documented as of this encounter
--- OUTSIDE RECORDS SUMMARY | 2024-08-13 05:01 | XMS_ITS | Encounter Summary ---
Author Organization [facility] Address [address] [place] [address] Care Team Providers Care Investigator Cash Shortage Name Role Phone Jose Manuel Gruber MD Unavailable Bernardo Edwards MD Primary Care Provider Encounter Details Date Type Department Care Team (Late st Contact Info) Description 09/12/2019 Orders Only [facility] Cardiology [address] [place] [address] Vinod Deshpande MD [facility] [place] [id number] Social History Tobacco Use Types Packs/Day Years [...] Procedure Name Priority Date/Time Associated Diagnosis Comments CARDIOLOGY DOCUMENT SCAN Routine 09/12/2019 documented in this encounter Results * SCAN - CARDIOLOGY (09/12/2019) Anatomical Region Laterality Modality Other Vinod Deshpande MD [facility] PROCEDURES F inal Result documented in this encounter Visit Diagnoses Not on filedocumented in this encounter Care Teams Investigator Cash Shortage Relationship Specialty Start Date End Date Bernardo Edwards MD [address] [place] [address] PCP - General 06/14/19 07/04/20 Jose Manuel Gruber MD Fellow Orthopedic Surgery 07/06/19 documented as of this encounter
--- OUTSIDE RECORDS SUMMARY | 2024-08-13 05:01 | XMS_ITS | Encounter Summary ---
Author Organization [facility] Address [address] [place] [address] Care Team Providers Care Incident Response Specialist Name Role Phone Jose Manuel Gruber MD Unavailable [phone] Bernardo Edwards MD Primary Care Provider [phone] Encounter Details Date Type Department Care Team (Late st Contact Info) Description 09/18/2019 Orders Only [facility] Cardiology [address] [place] [address] Frederick Zepeda MD [facility] [place] [id number] Social History Tobacco Use Types Packs/Day Years [...] Associated Diagnosis Comments CARDIOLOGY DOCUMENT SCAN Routine 09/18/2019 documented in this encounter Results * SCAN - CARDIOLOGY (09/18/2019) Anatomical Region Laterality Modality Other us Frederick Zepeda MD [facility] [place] Final Result documented in this encounter Visit Diagnoses Not on filedocumented in this encounter Care Teams Incident Response Specialist Relationship Specialty Start Date End Date Bernardo Edwards MD [address] [place] [address] PCP - General 06/14/19 07/04/20 Jose Manuel Gruber MD Fellow Orthopedic Surgery 07/06/19 documented as of this encounter
--- OUTSIDE RECORDS SUMMARY | 2024-08-13 05:01 | XMS_ITS | Encounter Summary ---
Author Organization [facility] Address [address] [place] [address] Care Team Providers Care Welding Estimator Name Role Phone Jose Manuel Gruber MD Unavailable [phone] Bernardo Edwards MD Primary Care Provider [phone] Encounter Details Date Type Department Care Team (Late st Contact Info) Description 09/16/2019 Orders Only [facility] Cardiology [address] [place] [address] Vinod Deshpande MD [facility] [place] [id number] Social History Tobacco Use Types Packs/Day Years [...] Associated Diagnosis Comments CARDIOLOGY DOCUMENT SCAN Routine 09/16/2019 documented in this encounter Results * SCAN - CARDIOLOGY (09/16/2019) Anatomical Region Laterality Modality Other Vinod Deshpande MD [facility] CARDIAC SERVICES PROCEDURES F inal Result documented in this encounter Visit Diagnoses Not on filedocumented in this encounter Care Teams Welding Estimator Relationship Specialty Start Date End Date Bernardo Edwards MD [address] [place] [address] PCP - General 06/14/19 07/04/20 Jose Manuel Gruber MD Fellow Orthopedic Surgery 07/06/19 documented as of this encounter
--- OUTSIDE RECORDS SUMMARY | 2024-08-13 05:01 | XMS_ITS | Encounter Summary ---
Author Organization [facility] Address [address] [place] [address] Phone Care Team Providers Care Stave Hewer Name Role Phone Jose Manuel Gruber MD Unavailable [phone] Bernardo Edwards MD Primary Care Provider [phone] Encounter Details Date Type Department Care Team (Late st Contact Info) Description 11/15/2019 Telephone [facility] Orthopaedic Surgery [address] [place] [facility] [address] [place] [address] [place] [address] Annamaria Perez RMA Social History Tobacco Use Types Packs/Day Years [...] AM CDT documented as of this encounter Miscellaneous Notes * Telephone Encounter - Annamaria Perez RMA - 11/15/2019 3:[address] Edwards called and requested a phone visit with Dr. Shoemaker regarding the patients weightbearing status. I informed him we will need xrays since we haven't seen the patient since August. He statedhe will order the xrays, 2 views of left tibia and 3 views of the right ankle, (ap, lat, mortise) and he will contact us once these have been completed. documented in this encounter Plan of Treatment Not on file documented as of this encounter Visit Diagnoses Not on filedocumented in this encounter Care Teams Stave Hewer Relationship Specialty Start Date End Date Bernardo dEwards MD [address] [place] [address] PCP - General 06/14/19 07/04/20 Jose Manuel Gruber MD Fellow Orthopedic Surgery 07/06/19 documented as of this encounter
--- OUTSIDE RECORDS SUMMARY | 2024-08-13 05:01 | XMS_ITS | Encounter Summary ---
Author Organization [facility] Address [address] [place] [address] Care Team Providers Care Patient Office Rep Name Role Phone Jose Manuel Gruber MD Unavailable [phone] Bernardo Edwards MD Primary Care Provider [phone] Reason for Visit * Reason Comments Follow-up 2 mo f/u A-fib, sync ope Encounter Details Date Type Department Care Team (Late st Contact Info) Description 03/06/2020 1:15 PM CDT Office Visit [facility] Cardiology [address] [place] [address] Vinod Deshpande MD [address] [address] Essential hypertension (Primary Dx); PAF (paroxysmal atrial fibrillation) (CMS/HCC); History of fall; Chronic respiratory failure, unspecified whether with hypoxia or hypercapnia (CMS/HCC) Social History Tobacco Use Types Packs/Day Years [...] Sign Reading Time Taken Comments Blood Pressure 160/78 03/06/2020 1:28 PM CDT Pulse 91 03/06/2020 1:28 PM CDT Temperature - - Respiratory Rate - - Oxygen Saturation 98% 03/06/2020 1:28 PM CDT Inhaled Oxygen Concentration - - Weight 93.9 kg (207 lb) 03/06/2020 1:28 PM CDT Height 157.5 cm (5' 2 ) 03/06/2020 1:28 PM CDT Body Mass Index 37.86 03/06/2020 1:28 PM CDT documented in this encounter Ordered Prescriptions Prescription Sig Dispense Quantity Refills Last Filled Start Date End Date spironolactone (ALDACTONE) 25 mg tablet Take 1 tablet (25 mg total) by mouth daily 30 tablet 11 03/06/2020 documented in this encounter Progress Notes * Vinod Deshpande MD - 03/06/2020 1:15 PM CDT [facility] 03/06/2020 CHIEF COMPLAINT Chief Complaint Patient presents with ??? Follow-up 2 mo f/u A-fib, syncope HPI Pepper A Gildardo is a 69 y.o. female with hypertension, PAF, chronic respiratory failure on home oxygen. Patient was admitted to [facility] on 09/09/2019 from care home rehab with respiratory distress and fever. She was in the care home rehab after recent fall and fracture. She apparently had a fall in early June 2019 and was admitted [facility]. Patient reports that it was a mechanical fall. She underwent ORIF left tibial and right malleolus fractures on 06/28/2019 and 06/30/2019 respectively at [facility]. She was discharged on 07/06/2019 to the rehab. Upon arrival to the [facility], she was found to be in respiratory failure and saturating at 92% on 15 L of oxygen. She was also febrile. She was briefly on pressor support in the ICU. Patient was found to be in sinus tachycardia, SVT and also in atrial fibrillation. Her EKG showed atrial fibrillation with RVR. She received metoprolol, diltiazem with improvement heart rate. Her EF was 65-70% on echo. Patient had MRSA bacteremia and was receiving antibiotics. 03/06/2020-patient had ambulatory monitoring and evaluation advisor on discharge to reassess for any recurrent arrhythmia. Thirty day event monitor showed sinus rhythm without any atrial fibrillation. Patient is currently in the care home rehab. She is essentially a mobile and uses wheelchair. She denies any chest pain, palpitation, dizziness. Patient has chronic respiratory failure, and is on home oxygen 4 liters/minute. Patient states that she is receiving Lovenox for DVT prophylaxis. MEDICAL HISTORY she has a past medical history of Asthma, COPD (chronic obstructive pulmonary disease) ([facility]), Heart murmur, Hyperlipidemia, Hypertension, Shortness of breath, and Sleep apnea. she has a past surgical history that includes Nasal septum surgery (1972); Appendectomy (1972); Dilation and curettage of uterus (10/1986); Replacement total knee (Left); Achilles tendon lengthening (Left, 09/1991); Toe Fusion (Left, 08/1994); Hysterectomy (05/1995); Bilateral salpingoophorectomy (0 12/1998); Breast biopsy (Right, 2000 and 2006); Shoulder surgery (Right, 08/2009); Ankle surgery (Left, 2015); and ORIF tibia fracture (Left, 06/28/2019). she Allergies Allergen Reactions ??? Fish Containing Products Anaphylaxis ??? Iodine Unknown ??? Latex Unknown ??? [place]-3 Fatty Acids Unknown ??? Other Unknown seafood ??? Sulfa (Sulfonamide Antibiotics) Unknown ??? Valium [Diazepam] Unknown Current Outpatient Medications Medication Sig Dispense Refill ??? Aerochamber Plus Flow-Vu spacer ??? albuterol HFA (PROVENTIL HFA,VENTOLIN HFA,PROAIR HFA) 90 mcg/actuation inhaler Inhale 2 puffs every 4 (four) hours as needed for shortness of breath. Indications: Asthma Attack ??? amLODIPine (NORVASC) 10 mg tablet Take 10 mg by mouth daily. Indications: high blood pressure ??? atorvastatin (LIPITOR) 10 mg tablet Take 1 tablet (10 mg total) by mouth nightly 1 tablet 0 ??? baclofen (LIORESAL) 5 mg tablet Take 0.5 tablets (2.5 mg total) by mouth 3 (three) times a day with meals 1 tablet 0 ??? busPIRone (BUSPAR) 5 mg tablet ??? cholecalciferol (cholecalciferol) 400 unit capsule Take 400 Units by mouth daily. Indications: Vitamin D deficiency ??? docusate sodium (COLACE) 100 mg capsule Take 100 mg by mouth daily. Indications: constipation ??? famciclovir (FAMVIR) 250 mg tablet Take 250 mg by mouth 2 (two) times a day. Indications: Other(complete free text reason below), herpes ??? fluticasone propionate (FLONASE) 50 mcg/actuation nasal [...] 1 patch on the skin daily ??? metoprolol (LOPRESSOR) 25 mg tablet Take 1 tablet (25 mg total) by mouth every 6 (six) hours 1 tablet 0 ??? olmesartan (BENICAR) 40 mg tablet Take 40 mg by mouth daily. Indications: high blood pressure ??? ondansetron (ZOFRAN) 4 mg tablet ??? oxyCODONE (ROXICODONE) 10 mg tablet Take 1 tablet (10 mg total) by mouth every 4 (four) hours as needed for pain 20 tablet 0 ??? oxyCODONE-acetaminophen (PERCOCET) 5-325 mg per tablet ??? pantoprazole DR (PROTONIX) 40 mg EC tablet Take 40 mg by mouth daily. Indications: Stress UlcerProphylaxis ??? triamcinolone (KENALOG) 0.1 % cream Apply 1 application topically 2 (two) times a day as needed0 ??? vitamin E (AQUASOL E) 400 unit capsule Take 800 Units by mouth daily. Indications: deficiency of vitamin E ??? spironolactone (ALDACTONE) 25 mg tablet Take 1 tablet (25 mg total) by mouth daily 30 tablet 11 No current facility-administered medications for this visit. she family history includes Diabetes in her brother, father, and mother; Emphysema in her father; Heart disease in her mother. she reports that she has never smoked. She has never used smokeless tobacco. She reports previous alcohol use. She reports that she does not use drugs. REVIEW OF SYSTEMS General ROS: negative for - Fever, chills, fatigue Psychological ROS: negative for - anxiety, depression Ophthalmic ROS: negative for - loss of vision ENT ROS: negative for - sore throat, epistaxis, headaches, nasal congestion Allergy and Immunology ROS: negative for - hives, postnasal drip Hematological and Lymphatic ROS: negative for - overt bleeding problems, bruising Respiratory ROS: Chronic dyspnea due to respiratory failure, on home oxygen Cardiovascular ROS: negative for - chest pain Gastrointestinal ROS: negative for - abdominal pain Endocrine ROS: negative for - hot flashes, polydipsia/polyuria Genito-Urinary ROS: negative for - dysuria, hematuria Musculoskeletal ROS: Unable to walk at present due to history of fractures Neurological ROS: negative for - gait disturbance, weakness Dermatological ROS: negative for pruritus, rash LABS AND OTHER DIAGNOSTIC TESTS REVIEWED Lab Results Component Value Date WBC 17.4 (H) 07/01/2019 HGB 7.6 (L) 07/01/2019 HCT 23.6 (L) 07/01/2019 MCV 86.8 07/01/2019 PLT 188 06/30/2019 No lab exists for component: LABALBU Lab Results Component Value Date WBC 17.4 (H) 07/01/2019 HGB 7.6 (L) 07/01/2019 HCT 23.6 (L) 07/01/2019 MCV 86.8 07/01/2019 PLT 188 06/30/2019 Lab Results Component Value Date CHOL 152 06/09/2019 CHOL 135 12/19/2017 Lab Results Component Value Date HDL 36 06/09/2019 HDL 36 12/19/2017 No results found for: LDL] Lab Results Component Value Date TRIG 269 (H) 06/09/2019 TRIG 200 (H) 12/19/2017 Echo-EF 65-70%, mitral annular calcification, aortic valve sclerosis. 09/11/[address] [facility] [address] Dominguez Thirty day event monitor- Unremarkable 24-day monitor. No atrial fibrillation seen. 12/25/2019 Dr. Read Lipids-total cholesterol 202, HDL 24, triglycerides 353, LDL 107. 03/06/2020 PHYSICAL EXAM Vitals BP 160/78 (BP Location: Left arm, Patient Position: Sitting) Pulse 91 Ht 157.5 cm (5' 2 ) Wt 93.9 kg (207 lb) SpO2 98% BMI 37.86 kg/m?? General appearance - alert, no distress, oriented to time, place, person Mental status - affect appropriate to mood Eyes - extraocular eye movements intact, no pallor Ears - external ears appear normal, hearing grossly normal Nose - normal and patent, no discharge Mouth - mucous membranes moist, tongue normal Neck - supple, carotids upstroke normal bilaterally, no bruits, no JVD Chest - coarse breath sounds Heart - normal rate, regular rhythm, normal S1, S2, no audible murmurs or gallops Abdomen - soft, nontender, nondistended, bowel sounds present Neurological - alert, oriented, normal speech, no gross motor deficits Musculoskeletal -previous surgical scars, trace edema Extremities - trace pedal edema, no clubbing or cyanosis Skin - no rashes (on the exposed areas), no cyanosis ASSESSMENT Diagnoses and all orders for this visit: Essential hypertension (Primary) PAF (paroxysmal atrial fibrillation) ([facility]) - POCT lipid panel History of fall Chronic respiratory failure, unspecified whether with hypoxia or hypercapnia ([facility]) Other orders - spironolactone (ALDACTONE) 25 mg tablet; Take 1 tablet (25 mg total) by mouth daily PLAN/RECOMMENDATIONS 69 y.o. with hypertension, PAF, chronic respiratory failure on home oxygen. - patient had an episode atrial fibrillation with RVR during hospitalization with acute on chronic respiratory failure, infection. Follow-up 30 day event monitor showed sinus rhythm without recurrentatrial fibrillation. Currently in sinus rhythm. Continue to monitor for now. - patient's blood pressure is elevated. She is currently on metoprolol, amlodipine, olmesartan. Will add spironolactone. Patient will continue maintenance diuresis for lower extremity swelling. Monitor BMP. - continue supplemental oxygen for patient's chronic respiratory failure. - patient reports that she is receiving DVT prophylaxis with low-molecular weight heparin. - Patient was advised to follow CDC and local health department guidelines including social distancing, utilization of masks and other measures for prevention of COVID-19 infection. Patient verbalized understanding. - medical records from recent hospitalization including cardiology notes, echo, labs reviewed - RTC 3 months or sooner if needed. Vinod Deshpande MD 03/06/20 Voice recognition software was used to complete this document, therefore, recreational therapist variances may occur. documented in this encounter Plan of Treatment Not on file documented as of this encounter Procedures Procedure Name Priority Date/Time Associated Diagnosis Comments POCT LIPID PANEL Routine 03/06/2020 1:37 PM CDT PAF (paroxysmal atrial fibrillation) ([facility]) documented in this encounter Results * POCT lipid panel (03/06/2020 1:37 PM CDT) Cholesterol, POC 202 mg/dL HDL, POC 24 mg/dL Triglycerides, POC 353 mg/dL LDL Cholesterol POC 107 mg/dL Chol/HDL Ratio, POC 8.4 Non-HDL Cholesterol, POC 178 mg/dL Capillary blood 03/06/2020 1 :37 PM CDT Vinod Deshpande MD POINT OF CARE TEST ORDERABLES Fi nal Result documented in this encounter Visit Diagnoses Diagnosis Essential hypertension- Primary Unspecified essential hypertension PAF (paroxysmal atrial fibrillation) (CMS/HCC) ([facility]) Atrial fibrillation History of fall Personal history of fall Chronic respiratory failure, unspecified whether with hypoxia or hypercapnia ([facility]) documented in this encounter Discontinued Medications Medication Sig Discontinue Reason Start Date End Da te cefdinir (OMNICEF) 300 mg capsule 07/29/2019 03/06/2020 cetirizine (ZyrTEC) 10 mg tabletIndications:Seas onal Allergic Rhinitis Take 10 mg by mouth daily. Indications: Seasonal Runny Nose 03/06/2020 cloNIDine (CATAPRES) 0.2 mg tabletIndications:hype rtension Take 0.2 mg by mouth 2 (two) times a day. Indications: high blood pressure 03/06/2020 cyclobenzaprine (FLEXERIL) 10 mg tablet Take 1 tablet (10 mg total) by mouth 3 (three) times a day 07/04/2019 03/06/2020 dicyclomine (BENTYL) 20 mg tablet TK 1 T PO TID 06/14/2019 03/06/2020 diphenhydrAMINE (diphenhydrAMINE) 25 mg capsule 25 mg 06/13/2019 03/06/2020 doxycycline hyclate 100 mg capsule 11/25/2019 03/06/2020 enoxaparin (LOVENOX) 40 mg/0.4 mL syringe 01/07/2020 03/06/2020 estradiol (ESTRACE) 0.5 mg tabletIndications:horm one replacement Take 0.5 mg by mouth daily. Indications: hormone replacement 03/06/2020 hydrALAZINE (APRESOLINE) 50 mg tabletIndications:hype rtension Take 50 mg by mouth 3 (three) times a day. Indications: high blood pressure 03/06/2020 LORazepam (ATIVAN) 0.5 mg tablet 01/08/2020 03/06/2020 LORazepam (ATIVAN) 1 mg tablet 11/06/2019 03/06/2020 magnesium citrate solution Take 296 mL by mouth daily as needed (constipation) 07/04/2019 03/06/2020 omeprazole (PriLOSEC) 40 mg capsule Take by mouth daily before breakfast 06/03/2019 03/06/2020 polyethylene glycol (MIRALAX) 17 gram/dose powderIndications:Ashwin l Evacuation Take 17 g by mouth daily. Indications: emptying of the bowel 03/06/2020 primidone (MYSOLINE) 50 mg tabletIndications:Esse ntial Tremor Take 50 mg by mouth 2 (two) times a day. Indications: Essential Tremor 03/06/2020 documented as of this encounter Care Teams Patient Office Rep Relationship Specialty Start Date End Date Bernardo Edwards MD [address] [place] [address] PCP - General 06/14/19 07/04/20 Jose Manuel Gruber MD Fellow Orthopedic Surgery 07/06/19 documented as of this encounter
--- OUTSIDE RECORDS SUMMARY | 2024-08-13 05:01 | XMS_ITS | Encounter Summary ---
Author Organization [facility] Healthcare Address [address] [place] [address] Care Team Providers Care Poultice Machine Operator Name Role Phone Jose Manuel Gruber MD Unavailable [phone] Bernardo Edwards MD Primary Care Provider [phone] Reason for Referral * Diagnostic Imaging (Routine) - Closed Specialty Diagnoses / Procedures Referred By Contac t Referred To Contact Diagnoses Closed displaced bimalleolar fracture of right ankle with routine healing, subsequent encounter Procedures XR Ankle Right 3 or More Views Jacobo Shoemaker MD Phone: tel: fax: [facility] Referral ID Status Reason Start Date Expiration Date Visits Re quested Visits Authorized [id number] Closed 09/05/2019 03/16/2021 1 1 TER OPERATOR * Diagnostic Imaging (Routine) - Closed Specialty Diagnoses / Procedures Referred By Contac t Referred To Contact Diagnoses Type III open displaced comminuted fracture of shaft of left tibia with routine healing, subsequent encounter Procedures XR Tibia Fibula Left 2 Views Jacobo Shoemaker MD Phone: tel: fax: [facility] Referral ID Status Reason Start Date Expiration Date Visits Re quested Visits Authorized [id number] Closed 09/04/2019 03/15/2021 1 1 TER OPERATOR * Diagnostic Imaging (Routine) - Closed Specialty Diagnoses / Procedures Referred By Kesha diggs Referred To Contact Diagnoses Type III open displaced comminuted fracture of shaft of left tibia with routine healing, subsequent encounter Procedures XR Ankle Left 3 or More Views Jacobo Shoemaker MD Phone: tel: fax: [facility] Referral ID Status Reason Start Date Expiration Date Visits Re quested Visits Authorized [id number] Closed 09/04/2019 03/15/2021 1 1 TER OPERATOR Reason for Visit * Diagnostic Imaging (Routine) - Closed Specialty Diagnoses / Procedures Referred By Kesha diggs Referred To Contact Diagnoses Type III open displaced comminuted fracture of shaft of left tibia with routine healing, subsequent encounter Procedures XR Ankle Left 3 or More Views Jacobo Shoemaker MD Phone: tel: fax: [facility] Referral ID Status Reason Start Date Expiration Date Visits Re quested Visits Authorized [id number] Closed 09/04/2019 03/15/2021 1 1 Encounter Details Date Type Department Care Team (Late st Contact Info) Description 09/05/2019 10:30 AM SWEATER OPERATOR - 09/05/2019 11:59 PM SWEATER OPERATOR Hospital Encounter [facility] [address] [place] [address] Jacobo Shoemaker MD [address] [facility] [address] [place] [address] Type III open displaced comminuted fracture of shaft of left tibia with routine healing, subsequent encounter; Closed displaced bimalleolar fracture of right ankle with routine healing, subsequent encounter Discharge Disposition: Discharge to home or [...] this encounter Medications at Time of Discharge amLODIPine (NORVASC) 10 mg tabletIndications :hypertension Take 10 mg by mouth daily. Indications: high blood pressure atorvastatin (LIPITOR) 10 mg tablet Take 1 tablet (10 mg total) by mouth nightly 1 tablet 07/04/2019 baclofen (LIORESAL) 5 mg tablet Take 0.5 tablets (2.5 mg total) by mouth 3 (three) times a day with meals 1 tablet 07/04/2019 cholecalciferol (VITAMIN D-3) 400 unit capsuleIndication s:Vitamin [...] times a day. Indications: visible water retention lidocaine (LIDODERM) 5 % Place 1 patch on the skin daily 06/14/2019 metoprolol (LOPRESSOR) 25 mg tablet Take 1 tablet (25 mg total) by mouth every 6 (six) hours 1 tablet 07/04/2019 olmesartan (BENICAR) 40 mg tabletIndications :hypertension Take 40 mg by mouth daily. Indications: high blood pressure pantoprazole DR (PROTONIX) 40 mg EC tabletIndications [...] 25 mg capsule 25 mg 06/13/2019 0 estradiol (ESTRACE) 0.5 mg tabletIndications :hormone replacement Take 0.5 mg by mouth daily. Indications: hormone replacement 0 gabapentin (NEURONTIN) 400 mg capsule Take 1 capsule (400 mg total) by mouth every 8 (eight) hours 1 capsule 07/04/2019 2 hydrALAZINE (APRESOLINE) 50 mg tabletIndications :hypertension Take 50 mg by mouth 3 (three) times a day. Indications: high blood pressure 0 magnesium citrate solution Take 296 mL by mouth daily as needed (constipation) 1 mL 07/04/2019 0 omeprazole (PriLOSEC) 40 mg capsule Take by mouth daily before breakfast 1 06/03/2019 0 oxyCODONE (ROXICODONE) 10 mg tabletIndications :Pain Take 1 tablet (10 mg total) by mouth every 4 (four) hours as needed for pain 20 tablet 07/06/2019 0 polyethylene glycol (MIRALAX) 17 gram/dose powderIndications [...] VIEWS Schedule Routine, Read Routine (OP Routine) 09/05/2019 10:59 AM SWEATER OPERATOR Closed displaced bimalleolar fracture of right ankle with routine healing, subsequent encounter XR ANKLE LEFT 3 OR MORE VIEWS Schedule Routine, Read Routine (OP Routine) 09/05/2019 10:59 AM SWEATER OPERATOR Type III open displaced comminuted fracture of shaft of left tibia with routine healing, subsequent encounter XR TIBIA FIBULA LEFT 2 VIEWS Schedule Routine, Read Routine (OP Routine) 09/05/2019 10:59 AM SWEATER OPERATOR Type III open displaced comminuted fracture of shaft of left tibia with routine healing, subsequent encounter documented in this encounter Results * XR Ankle Right 3 or More Views (09/05/2019 10:59 AM SWEATER OPERATOR) Anatomical Region Laterality Modality Lower Extremities, Ankle Right Compute d Radiography 09/05/2019 11:0 5 AM SWEATER OPERATOR Impressions 09/05/2019 11:05 AM SWEATER OPERATOR 1. ??Progressive displacement and angulation of a periprosthetic proximal left tibial fracture with progressive loss of purchase of the proximal fixation screws and separation of the bone plate interval. 2. Progressive displacement of a proximal left fibular fracture with early changes of healing. 3. Healing, reduced and internally fixated right medial malleolus fracture Electronically signed by: Adithya Diaz M.D. Narrative 09/05/2019 11:05 AM SWEATER OPERATOR EXAMINATION: 1. ??Left Ankle 3+ views 2. Left tibia fibula 2 views 3. Right ankle 3+ views HISTORY: ??Bilateral ankle fractures FINDINGS: 3 views each ankle nonweightbearing, and 2 views left tibia fibula submitted with comparison 08/15/2000. Left tibia-fibula/ankle: Left total knee arthroplasty is in place. There is been interval progressive displacement and angulation of a periprosthetic proximal left tibia fracture with increased loss of purchase of the proximal fixation screws and separation of the fixation plate from the medial tibial bone. Additionally, there is progressive displacement of a proximal left fibular fracture with early changes of healing. Small knee effusion is present. Reduced and internally fixated bimalleolar left ankle fracture is healed. There is mild left ankle osteoarthritis. The ankle mortise is normal. Right ankle: There is a healing, reduced and internally fixated medial malleolus fracture. The ankle joint space and mortise are normal. Old anterior talofibular ligament sprain is noted with heterotopic ossification. Procedure Note Adithya Diaz MD - 09/05/2019 EXAMINATION: 1. Left Ankle 3+ views 2. Left tibia fibula 2 views 3. Right ankle 3+ views HISTORY: Bilateral ankle fractures FINDINGS: 3 views each ankle nonweightbearing, and 2 views left tibia fibula submitted with comparison 08/15/2000. Left tibia-fibula/ankle: Left total knee arthroplasty is in place. There is been interval progressive displacement and angulation of a periprosthetic proximal left tibia fracture with increased loss of purchase of the proximal fixation screws and separation of the fixation plate from the medial tibial bone. Additionally, there is progressive displacement of a proximal left fibular fracture with early changes of healing. Small knee effusion is present. Reduced and internally fixated bimalleolar left ankle fracture is healed. There is mild left ankle osteoarthritis. The ankle mortise is normal. Right ankle: There is a healing, reduced and internally fixated medial malleolus fracture. The ankle joint space and mortise are normal. Old anterior talofibular ligament sprain is noted with heterotopic ossification. IMPRESSION: 1. Progressive displacement and angulation of a periprosthetic proximal left tibial fracture with progressive loss of purchase of the proximal fixation screws and separation of the bone plate interval. 2. Progressive displacement of a proximal left fibular fracture with early changes of healing. 3. Healing, reduced and internally fixated right medial malleolus fracture Electronically signed by: Adithya Diaz M.D. Jacobo Shoemaker MD IMG XR PROCEDURE S Final Result * XR Tibia Fibula Left 2 Views (09/05/2019 10:59 AM SWEATER OPERATOR) Anatomical Region Laterality Modality Lower Extremities, Lower Leg Left Com puted Radiography 09/05/2019 11:0 5 AM SWEATER OPERATOR Impressions 09/05/2019 11:05 AM SWEATER OPERATOR 1. ??Progressive displacement and angulation of a periprosthetic proximal left tibial fracture with progressive loss of purchase of the proximal fixation screws and separation of the bone plate interval. 2. Progressive displacement of a proximal left fibular fracture with early changes of healing. 3. Healing, reduced and internally fixated right medial malleolus fracture Electronically signed by: Adithya Diaz M.D. Narrative 09/05/2019 11:05 AM SWEATER OPERATOR EXAMINATION: 1. ??Left Ankle 3+ views 2. Left tibia fibula 2 views 3. Right ankle 3+ views HISTORY: ??Bilateral ankle fractures FINDINGS: 3 views each ankle nonweightbearing, and 2 views left tibia fibula submitted with comparison 08/15/2000. Left tibia-fibula/ankle: Left total knee arthroplasty is in place. There is been interval progressive displacement and angulation of a periprosthetic proximal left tibia fracture with increased loss of purchase of the proximal fixation screws and separation of the fixation plate from the medial tibial bone. Additionally, there is progressive displacement of a proximal left fibular fracture with early changes of healing. Small knee effusion is present. Reduced and internally fixated bimalleolar left ankle fracture is healed. There is mild left ankle osteoarthritis. The ankle mortise is normal. Right ankle: There is a healing, reduced and internally fixated medial malleolus fracture. The ankle joint space and mortise are normal. Old anterior talofibular ligament sprain is noted with heterotopic ossification. Procedure Note Adithya Diaz MD - 09/05/2019 EXAMINATION: 1. Left Ankle 3+ views 2. Left tibia fibula 2 views 3. Right ankle 3+ views HISTORY: Bilateral ankle fractures FINDINGS: 3 views each ankle nonweightbearing, and 2 views left tibia fibula submitted with comparison 08/15/2000. Left tibia-fibula/ankle: Left total knee arthroplasty is in place. There is been interval progressive displacement and angulation of a periprosthetic proximal left tibia fracture with increased loss of purchase of the proximal fixation screws and separation of the fixation plate from the medial tibial bone. Additionally, there is progressive displacement of a proximal left fibular fracture with early changes of healing. Small knee effusion is present. Reduced and internally fixated bimalleolar left ankle fracture is healed. There is mild left ankle osteoarthritis. The ankle mortise is normal. Right ankle: There is a healing, reduced and internally fixated medial malleolus fracture. The ankle joint space and mortise are normal. Old anterior talofibular ligament sprain is noted with heterotopic ossification. IMPRESSION: 1. Progressive displacement and angulation of a periprosthetic proximal left tibial fracture with progressive loss of purchase of the proximal fixation screws and separation of the bone plate interval. 2. Progressive displacement of a proximal left fibular fracture with early changes of healing. 3. Healing, reduced and internally fixated right medial malleolus fracture Electronically signed by: Adithya Diaz M.D. Jacobo Shoemaker MD IMG XR PROCEDURE S Final Result * XR Ankle Left 3 or More Views (09/05/2019 10:59 AM SWEATER OPERATOR) Anatomical Region Laterality Modality Lower Extremities, Ankle Left Compute d Radiography 09/05/2019 11:0 5 AM SWEATER OPERATOR Impressions 09/05/2019 11:05 AM SWEATER OPERATOR 1. ??Progressive displacement and angulation of a periprosthetic proximal left tibial fracture with progressive loss of purchase of the proximal fixation screws and separation of the bone plate interval. 2. Progressive displacement of a proximal left fibular fracture with early changes of healing. 3. Healing, reduced and internally fixated right medial malleolus fracture Electronically signed by: Adithya Diaz M.D. Narrative 09/05/2019 11:05 AM SWEATER OPERATOR EXAMINATION: 1. ??Left Ankle 3+ views 2. Left tibia fibula 2 views 3. Right ankle 3+ views HISTORY: ??Bilateral ankle fractures FINDINGS: 3 views each ankle nonweightbearing, and 2 views left tibia fibula submitted with comparison 08/15/2000. Left tibia-fibula/ankle: Left total knee arthroplasty is in place. There is been interval progressive displacement and angulation of a periprosthetic proximal left tibia fracture with increased loss of purchase of the proximal fixation screws and separation of the fixation plate from the medial tibial bone. Additionally, there is progressive displacement of a proximal left fibular fracture with early changes of healing. Small knee effusion is present. Reduced and internally fixated bimalleolar left ankle fracture is healed. There is mild left ankle osteoarthritis. The ankle mortise is normal. Right ankle: There is a healing, reduced and internally fixated medial malleolus fracture. The ankle joint space and mortise are normal. Old anterior talofibular ligament sprain is noted with heterotopic ossification. Procedure Note Adithya Diaz MD - 09/05/2019 EXAMINATION: 1. Left Ankle 3+ views 2. Left tibia fibula 2 views 3. Right ankle 3+ views HISTORY: Bilateral ankle fractures FINDINGS: 3 views each ankle nonweightbearing, and 2 views left tibia fibula submitted with comparison 08/15/2000. Left tibia-fibula/ankle: Left total knee arthroplasty is in place. There is been interval progressive displacement and angulation of a periprosthetic proximal left tibia fracture with increased loss of purchase of the proximal fixation screws and separation of the fixation plate from the medial tibial bone. Additionally, there is progressive displacement of a proximal left fibular fracture with early changes of healing. Small knee effusion is present. Reduced and internally fixated bimalleolar left ankle fracture is healed. There is mild left ankle osteoarthritis. The ankle mortise is normal. Right ankle: There is a healing, reduced and internally fixated medial malleolus fracture. The ankle joint space and mortise are normal. Old anterior talofibular ligament sprain is noted with heterotopic ossification. IMPRESSION: 1. Progressive displacement and angulation of a periprosthetic proximal left tibial fracture with progressive loss of purchase of the proximal fixation screws and separation of the bone plate interval. 2. Progressive displacement of a proximal left fibular fracture with early changes of healing. 3. Healing, reduced and internally fixated right medial malleolus fracture Electronically signed by: Adithya Diaz M.D. Jacobo Shoemaker MD IMG XR PROCEDURE S Final Result documented in this encounter Visit Diagnoses Diagnosis Type III open displaced comminuted fracture of shaft of left tibia with routine healing, subsequent encounter Closed displaced bimalleolar fracture of right ankle with routine healing, subsequent encounter documented in this encounter Care Teams Poultice Machine Operator Relationship Specialty Start Date End Date Bernardo Edwards MD [address] [place] [address] PCP - General 06/14/19 07/04/20 Jose Manuel Gruber MD Fellow Orthopedic Surgery 07/06/19 documented as of this encounter
--- OUTSIDE RECORDS SUMMARY | 2024-08-13 05:01 | XMS_ITS | Encounter Summary ---
Author Organization [facility] Healthcare Address [address] [place] [address] Care Team Providers Care Geochemical Manager Name Role Phone Hernando Velasquez MD Primary Care Provider [phone] Jose Manuel Gruber MD Unavailable [phone] Bernardo Edwards MD Primary Care Provider [phone] Encounter Details Date Type Department Care Team (Late st Contact Info) Description 01/10/2019 2:07 PM CDT - 01/22/2020 11:59 PM CDT Hospital Encounter [facility]IM Dean Stephenson MD [address] [facility] [address] [address] Social History Tobacco Use Types Packs/Day Years [...] AM CDT documented as of this encounter Medications at [...] 06/14/2019 0 documented as of this encounter Plan of Treatment Not on file documented as of this encounter Visit Diagnoses Not on filedocumented in this encounter Care Teams Geochemical Manager Relationship Specialty Start Date End Date Hernando Velasquez MD [address] [place] [address] PCP - General 12/23/18 06/13/19 [place] [address] [place] [id number] PCP - General 06/14/19 07/04/20 Jose Manuel Gruber MD [address] [place] [address] Fellow Orthopedic Surgery 07/06/19 documented as of this encounter
--- OUTSIDE RECORDS SUMMARY | 2024-08-13 05:01 | XMS_ITS | Encounter Summary ---
Author Organization [facility] Address [address] [facility] [address] [place] [address] Care Team Providers Care Payroll Accountant Name Role Phone Jose Manuel Gruber MD Unavailable Bernardo Edwards MD Primary Care Provider [phone] Encounter Details Date Type Department Care Team (Late st Contact Info) Description 09/11/2019 Orders Only [facility] Cardiology [address] [address] Adithya Dominguez MD [address] [facility] [address] [place] [address] Social History Tobacco Use Types [...] Associated Diagnosis Comments CARDIOLOGY DOCUMENT SCAN Routine 09/11/2019 documented in this encounter Results * SCAN - CARDIOLOGY (09/11/2019) Anatomical Region Laterality Modality Other us Adithya Dominguez MD [facility] PROC EDURES Final Result documented in this encounter Visit Diagnoses Not on filedocumented in this encounter Care Teams Payroll Accountant Relationship Specialty Start Date End Date Bernardo Edwards MD [address] [place] [address] PCP - General 06/14/19 07/04/20 Jose Manuel Gruber MD Fellow Orthopedic Surgery 07/06/19 documented as of this encounter
--- OUTSIDE RECORDS SUMMARY | 2024-08-13 05:01 | XMS_ITS | Encounter Summary ---
Author Organization [facility] Address [address] [facility] [address] [place] [address] Care Team Providers Care Director Radiation Oncology Name Role Phone Jose Manuel Gruber MD Unavailable [phone] Bernardo Edwards MD Primary Care Provider [phone] Encounter Details Date Type Department Care Team (Late st Contact Info) Description 09/19/2019 Orders Only [facility] Cardiology [address] [place] [address] Frederick Zepeda MD [facility] [place] [id number] Social History Tobacco Use Types Packs/Day Years [...] Associated Diagnosis Comments CARDIOLOGY DOCUMENT SCAN Routine 09/19/2019 documented in this encounter Results * SCAN - CARDIOLOGY (09/19/2019) Anatomical Region Laterality Modality Other us Frederick Zepeda MD [facility] [place] Final Result documented in this encounter Visit Diagnoses Not on filedocumented in this encounter Care Teams Director Radiation Oncology Relationship Specialty Start Date End Date Bernardo Edwards MD [address] [place] [address] PCP - General 06/14/19 07/04/20 Jose Manuel Gruber MD Fellow Orthopedic Surgery 07/06/19 documented as of this encounter
--- OUTSIDE RECORDS SUMMARY | 2024-08-13 05:01 | XMS_ITS | Encounter Summary ---
Author Organization [facility] Address [address] [place] [address] Phone Care Team Providers Care Physical Education Teacher Name Role Phone Jose Manuel Gruber MD Unavailable [phone] Bernardo Edwards MD Primary Care Provider [phone] Reason for Referral * Diagnostic Imaging (Routine) - Closed Specialty Diagnoses / Procedures Referred By Contac t Referred To Contact Diagnoses Type III open displaced comminuted fracture of shaft of left tibia with routine healing, subsequent encounter Procedures XR Tibia Fibula Left 2 Views Jacobo Shoemaker MD Phone: tel: fax: [facility] Referral ID Status Reason Start Date Expiration Date Visits Re quested Visits Authorized [id number] Closed 05/06/2020 06/05/2021 1 1 * Diagnostic Imaging (Routine) - Closed Specialty Diagnoses / Procedures Referred By Contac t Referred To Contact Diagnoses Closed displaced bimalleolar fracture of right ankle with routine healing, subsequent encounter Procedures XR Ankle Right 3 or More Views Jacobo Shoemaker MD Phone: tel: fax: [facility] Referral ID Status Reason Start Date Expiration Date Visits Re quested Visits Authorized [id number] Closed 05/06/2020 06/05/2021 1 1 Reason for Visit * Reason Comments Fracture Encounter Details Date Type Department Care Team (Late st Contact Info) Description 05/07/2020 1:40 PM CDT Office Visit [facility] Orthopaedic Surgery [address] [facility] [address]th [place] [address] [place] [address] Jacobo Shoemaker MD [address] [facility] [address] [place] [address] Type III open displaced comminuted fracture of [...] Progress Notes * Jacobo Shoemaker MD - 05/07/2020 1:40 PM CDT RETURN PATIENT VISIT INTERIM HISTORY The patient reports that she had redness increasing with some evidence of wound worsening a couple weeks ago over her open tibia site and has been given Keflex with resolution of the erythema and drainage PHYSICAL EXAMINATION No pain with range of motion of the knee on the left or the ankle on the right. Right ankle is dorsiflexion of only a few degrees, plantar flexion of 30??. Knee range of motion is from full extensionto 90??. No pain with either range of motion. No tenderness to palpation around the fracture sites.Patient's traumatic laceration remains approximated with very mild erythema, overall looking quite w ell compared to previous REVIEW OF X-RAYS/STUDIES I have ordered and personally reviewed radiographs of the patient's left tibia and right ankle which demonstrate maintained alignment and healing of the ankle fracture with some further callus formation across the tibia fracture with visible fracture lines specifically anteriorly IMPRESSION Healed fractures, ongoing on and off erythema around traumatic wound PLAN/FOLLOW UP Today the patient's leg looks particularly benign and overall the patient reports that it has gotten better. My concern at this point as relatively low but I have recommended that she return to our clinic for evaluation without prescription for antibiotics if the erythema and drainage returns. Otherwise follow up in 2 months with x-rays of the left tibia and right ankle Jacobo Shoemaker MD MSc Orthopedic Trauma Service [facility] Orthopedics Jacobo Shoemaker MD MSc dictating using [employer] Direct Software. Windscreen Fitter variances may occur. documented in this encounter Plan of Treatment Not on file documented as of this encounter Results * XR Tibia Fibula Left 2 Views (05/07/2020 2:19 PM CDT) Anatomical Region Laterality Modality Lower Extremities, Lower Leg Left Com puted Radiography 05/07/2020 2:29 PM CDT Impressions 05/07/2020 2:29 PM CDT 1. Healing left proximal tibia periprosthetic fracture with unchanged medial apex angulation. 2. Healing mildly displaced and angulated proximal left fibula fracture. 3. Healed right medial malleolus fracture. Electronically signed by: Ramez Bhandari M.D. Narrative 05/07/2020 2:29 PM CDT EXAMINATION: XR TIBIA FIBULA LEFT 2 VIEWS, [...] the right ankle, unchanged. No acute fracture. Procedure Note Ramez Bhandari MD - 05/07/2020 EXAMINATION: XR TIBIA FIBULA LEFT 2 VIEWS, [...] the right ankle, unchanged. No acute fracture. IMPRESSION: 1. Healing left proximal tibia periprosthetic fracture with unchanged medial apex angulation. 2. Healing mildly displaced and angulated proximal left fibula fracture. 3. Healed right medial malleolus fracture. Electronically signed by: Ramez Bhandari M.D. Jacobo Shoemaker MD IMG XR PROCEDURE S Final Result * XR Ankle Right 3 or More Views (05/07/2020 2:19 PM CDT) Anatomical Region Laterality Modality Lower Extremities, Ankle Right Compute d Radiography 05/07/2020 2:29 PM CDT Impressions 05/07/2020 2:29 PM CDT 1. Healing left proximal tibia periprosthetic fracture with unchanged medial apex angulation. 2. Healing mildly displaced and angulated proximal left fibula fracture. 3. Healed right medial malleolus fracture. Electronically signed by: Ramez Bhandari M.D. Narrative 05/07/2020 2:29 PM CDT EXAMINATION: XR TIBIA FIBULA LEFT 2 VIEWS, [...] the right ankle, unchanged. No acute fracture. Procedure Note Ramez Bhandari MD - 05/07/2020 EXAMINATION: XR TIBIA FIBULA LEFT 2 VIEWS, [...] the right ankle, unchanged. No acute fracture. IMPRESSION: 1. Healing left proximal tibia periprosthetic fracture with unchanged medial apex angulation. 2. Healing mildly displaced and angulated proximal left fibula fracture. 3. Healed right medial malleolus fracture. Electronically signed by: Ramez Bhandari M.D. us Jacobo Shoemaker MD IMG XR PROCEDURE S Final Result documented in this encounter Visit Diagnoses Diagnosis Type III open displaced comminuted fracture of shaft of left tibia with routine healing, subsequent encounter- Primary Closed displaced bimalleolar fracture of right ankle with routine healing, subsequent encounter Type III open displaced comminuted fracture of shaft of left tibia with routine healing, subsequent encounter Closed displaced bimalleolar fracture of right ankle with routine healing, subsequent encounter documented in this encounter Discontinued Medications Medication Sig Discontinue Reason Start Date End Da te triamcinolone (KENALOG) 0.1 % cream Apply 1 application topically 2 (two) times a day as needed Other 06/14/2019 05/06/2020 documented as of this encounter Historical Medications * This list may reflect changes made after this encounter. primidone (MYSOLINE) 50 mg tablet 05/05/2020 LORazepam (ATIVAN) 0.5 mg tablet Take 0.5 mg by mouth every 8 (eight) hours as needed for anxiety 05/04/2020 enoxaparin (LOVENOX) 40 mg/0.4 mL syringe 03/29/2020 Nyamyc powder 03/01/2020 cephalexin (KEFLEX) 500 mg capsule 04/24/2020 07/05/2020 doxycycline 100 mg tablet 05/01/2020 07/05/2020 ALPRAZolam (XANAX) 0.25 mg tablet 04/02/2020 07/05/2020 added in this encounter Care Teams Physical Education Teacher Relationship Specialty Start Date End Date Bernardo Edwards MD [address] [place] [address] PCP - General 06/14/19 07/04/20 Jose Manuel Gruber MD Fellow Orthopedic Surgery 07/06/19 documented as of this encounter
--- OUTSIDE RECORDS SUMMARY | 2024-08-13 05:01 | XMS_ITS | Encounter Summary ---
Author Organization [facility] Address [address] [place] [address] Care Team Providers Care Dresser Tender Name Role Phone Jose Manuel Gruber MD Unavailable [phone] Bernardo Edwards MD Primary Care Provider [phone] Encounter Details Date Type Department Care Team (Late st Contact Info) Description 09/20/2019 Orders Only [facility] Cardiology [address] [place] [address] Frederick Zepeda MD [facility] [place] [id number] Social History Tobacco Use Types Packs/Day Years [...] Associated Diagnosis Comments CARDIOLOGY DOCUMENT SCAN Routine 09/20/2019 documented in this encounter Results * SCAN - CARDIOLOGY (09/20/2019) Anatomical Region Laterality Modality Other us Frederick Zepeda MD [facility] Final Result documented in this encounter Visit Diagnoses Not on filedocumented in this encounter Care Teams Dresser Tender Relationship Specialty Start Date End Date Bernardo Edwards MD [address] [place] [address] PCP - General 06/14/19 07/04/20 Jose Manuel Gruber MD Fellow Orthopedic Surgery 07/06/19 documented as of this encounter
--- OUTSIDE RECORDS SUMMARY | 2024-08-13 05:01 | XMS_ITS | Encounter Summary ---
Author Organization [facility] Address [address] [place] [address] Phone Care Team Providers Care Distance Education Director Name Role Phone Jose Manuel Gruber MD Unavailable [phone] Bernardo Edwards MD Primary Care Provider [phone] Reason for Referral * Diagnostic Imaging (Routine) - Closed Specialty Diagnoses / Procedures Referred By Contac t Referred To Contact Diagnoses Closed displaced bimalleolar fracture of right ankle with routine healing, subsequent encounter Procedures XR Ankle Right 3 or More Views Jacobo Shoemaker MD Phone: tel: fax: [facility] Referral ID Status Reason Start Date Expiration Date Visits Re quested Visits Authorized [id number] Closed 09/05/2019 03/16/2021 1 1 OR ENERGY MARKET COORDINATOR * Diagnostic Imaging (Routine) - Closed Specialty Diagnoses / Procedures Referred By Contac t Referred To Contact Diagnoses Type III open displaced comminuted fracture of shaft of left tibia with routine healing, subsequent encounter Procedures XR Ankle Left 3 or More Views Jacobo Shoemaker MD Phone: tel: fax: [facility] Referral ID Status Reason Start Date Expiration Date Visits Re quested Visits Authorized [id number] Closed 09/04/2019 03/15/2021 1 1 OR ENERGY MARKET COORDINATOR * Diagnostic Imaging (Routine) - Closed Specialty Diagnoses / Procedures Referred By Kesha t Referred To Contact Diagnoses Type III open displaced comminuted fracture of shaft of left tibia with routine healing, subsequent encounter Procedures XR Tibia Fibula Left 2 Views Jacobo Shoemaker MD Phone: tel: fax: [facility] Referral ID Status Reason Start Date Expiration Date Visits Re quested Visits Authorized [id number] Closed 09/04/2019 03/15/2021 1 1 OR ENERGY MARKET COORDINATOR Reason for Visit * Reason Comments Post-op Post-op Encounter Details Date Type Department Care Team (Late st Contact Info) Description 09/05/2019 10:10 AM SENIOR ENERGY MARKET COORDINATOR Office Visit [facility] Orthopaedic Surgery [address] [place] [address] [address] [place] [address] [place] [address] Jacobo Shoemaker MD [address] [facility] [address] [place] [address] Type III open displaced comminuted fracture of [...] Progress Notes * Jacobo Shoemaker MD - 09/05/2019 10:10 AM CST POST OP VISIT INTERIM HISTORY No complaints, no changes PHYSICAL EXAMINATION Diffuse decrease in sensation is stable from baseline on the left lower extremity. Wound continues to slowly heal, no drainage, mild erythema. No pain with range of motion of the knee and ankle. REVIEW OF X-RAYS/STUDIES I have ordered and personally reviewed xrays of the patient's tibia which demonstrate maintained alignment of possible loosening of the proximal implants, small amount of interval healing, as well asx-rays of the contralateral ankle which demonstrate healing and stable implants IMPRESSION Healing lizabeth implant tibia fracture, open PLAN/FOLLOW UP Continue current weight-bearing status for transfers only, follow up in to 6 weeks with repeat x-rays of the left tibia and right ankle. Jacobo Shoemaker MD MSc Orthopedic Trauma Service [facility] Jacobo Shoemaker MD MSc dictating using [employer] Direct Software. Milk Route Supervisor variances may occur. OR ENERGY MARKET COORDINATOR documented in this encounter Plan of Treatment Not on file documented as of this encounter Results * XR Ankle Right 3 or More Views (09/05/2019 10:59 AM SENIOR ENERGY MARKET COORDINATOR) Anatomical Region Laterality Modality Lower Extremities, Ankle Right Compute d Radiography 09/05/2019 11:0 5 AM SENIOR ENERGY MARKET COORDINATOR Impressions 09/05/2019 11:05 AM SENIOR ENERGY MARKET COORDINATOR 1. ??Progressive displacement and angulation of a periprosthetic proximal left tibial fracture with progressive loss of purchase of the proximal fixation screws and separation of the bone plate interval. 2. Progressive displacement of a proximal left fibular fracture with early changes of healing. 3. Healing, reduced and internally fixated right medial malleolus fracture Electronically signed by: Adithya Diaz M.D. Narrative 09/05/2019 11:05 AM SENIOR ENERGY MARKET COORDINATOR EXAMINATION: 1. ??Left Ankle 3+ views 2. [...] fracture Electronically signed by: Adithya Diaz M.D. us Jacobo Shoemaker MD IMG XR PROCEDURE S Final Result * XR Ankle Left 3 or More Views (09/05/2019 10:59 AM SENIOR ENERGY MARKET COORDINATOR) Anatomical Region Laterality Modality Lower Extremities, Ankle Left Compute d Radiography 09/05/2019 11:0 5 AM SENIOR ENERGY MARKET COORDINATOR Impressions 09/05/2019 11:05 AM SENIOR ENERGY MARKET COORDINATOR 1. ??Progressive displacement and angulation of a periprosthetic proximal left tibial fracture with progressive loss of purchase of the proximal fixation screws and separation of the bone plate interval. 2. Progressive displacement of a proximal left fibular fracture with early changes of healing. 3. Healing, reduced and internally fixated right medial malleolus fracture Electronically signed by: Adithya Diaz M.D. Narrative 09/05/2019 11:05 AM SENIOR ENERGY MARKET COORDINATOR EXAMINATION: 1. ??Left Ankle 3+ views 2. [...] fracture Electronically signed by: Adithya Diaz M.D. us Jacobo Shoemaker MD IMG XR PROCEDURE S Final Result * XR Tibia Fibula Left 2 Views (09/05/2019 10:59 AM SENIOR ENERGY MARKET COORDINATOR) Anatomical Region Laterality Modality Lower Extremities, Lower Leg Left Com puted Radiography 09/05/2019 11:0 5 AM SENIOR ENERGY MARKET COORDINATOR Impressions 09/05/2019 11:05 AM SENIOR ENERGY MARKET COORDINATOR 1. ??Progressive displacement and angulation of a periprosthetic proximal left tibial fracture with progressive loss of purchase of the proximal fixation screws and separation of the bone plate interval. 2. Progressive displacement of a proximal left fibular fracture with early changes of healing. 3. Healing, reduced and internally fixated right medial malleolus fracture Electronically signed by: Adithya Diaz M.D. Narrative 09/05/2019 11:05 AM SENIOR ENERGY MARKET COORDINATOR EXAMINATION: 1. ??Left Ankle 3+ views 2. [...] fracture Electronically signed by: Adithya Diaz M.D. us Jacobo Shoemaker MD IMG XR [...] Discontinue Reason Start Date End Da te acetaminophen 500 mg capsule Take 2 capsules (1,000 mg total) by mouth every 6 (six) hours Therapy completed 07/04/2019 09/05/2019 senna (SENOKOT) 8.6 mg tablet Take 1 tablet by mouth 2 (two) times a day Therapy completed 07/04/2019 09/05/2019 documented as of this encounter Care Teams Distance Education Director Relationship Specialty Start Date End Date Bernardo Edwards MD [address] [place] [address] PCP - General 06/14/19 07/04/20 Jose Manuel Gruber MD Fellow Orthopedic Surgery 07/06/19 documented as of this encounter
--- OUTSIDE RECORDS SUMMARY | 2024-08-13 05:01 | XMS_ITS | Encounter Summary ---
Author Organization [facility] Address [address] [place] [address] Care Team Providers Care Data Entry Technician Name Role Phone Jose Manuel Gruber MD Unavailable [phone] Bernardo Edwards MD Primary Care Provider [phone] Reason for Referral * (Routine) - Closed Specialty Diagnoses / Procedures Referred By Contac t Referred To Contact Diagnoses Syncope and collapse Atrial fibrillation (CMS/HCC) ([facility]) Procedures Event Monitor, 30 Day Event Xiomara Oakley NP [address] [address] Phone: tel: fax: Referral ID Status Reason Start Date Expiration Date Visits Re quested Visits Authorized [id number] Closed 12/25/2019 07/05/2021 1 1 Reason for Visit * Reason Comments Atrial Fibrillation MRSA Bacteremia recovered Encounter Details Date Type Department Care Team (Late st Contact Info) Description 12/25/2019 2:00 PM CDT Office Visit [facility] Cardiology [address] [address] Xiomara Oakley NP [address] [facility] [address] [address] Syncope and collapse (Primary Dx); Atrial fibrillation (CMS/HCC); Hospital discharge follow-up Social History Tobacco Use Types Packs/Day Years [...] Sign Reading Time Taken Comments Blood Pressure 140/78 12/25/2019 2:16 PM CDT Pulse 82 12/25/2019 2:16 PM CDT Temperature - - Respiratory Rate - - Oxygen Saturation - - Inhaled Oxygen Concentration - - Weight 93.9 kg (207 lb) 12/25/2019 2:16 PM CDT Height 157.5 cm (5' 2 ) 12/25/2019 2:16 PM CDT Body Mass Index 37.86 12/25/2019 2:16 PM CDT documented in this encounter Progress Notes * Xiomara Oakley NP - 12/25/2019 2:00 PM CDT Images from the original note were not included. [facility] Cardiology [address] [place] [address] Date of Visit: 12/25/2019 Patient ID: Celestina Ewing 1950 Chief Complaint: Celestina Ewing is a 69 y.o. female who comes to the office for hospital follow-up appointment after she was evaluated for atrial fibrillation when she was hospitalized for sepsis in August 2019. History of Present Illness: Celestina Ewing is a 69 y.o. female with a past medical history of hypertension and chronic respiratory failure on home oxygen. She was admitted to [facility] on 09/09/2019 from skilled rehabfor respiratory stay distress and fever. Apparently she was rehabilitating from a fall resulting inleft tibial fracture s/p ORIF at [place] in June 2019. Her heart rhythm was sinus tachycardia, SVT, and also AFib. Dr. Deshpande saw her in consultation and he interpreted her most recent ECG has AFib with RVR. She was on a diltiazem drip. Echocardiogram showed hyperdynamic LV systolic function with EF 65-70%, grade 1 diastolic dysfunction, mild and no lesions suspicious for infectious vegetation. She converted to sinus rhythm while she was on esmolol. Her AFib was thought to be due to the acute illness and therefore chronic anticoagulation was not recommended unless she had recurrence of AFib. 12/25/2019 hospital follow-up with RECYCLING PROGRAM MANAGER: She comes to our office today for the 1st time for hospital follow-up. [facility]. The rehabilitation of her left tibial fracture has proceeded more slowly due to closures from the pandemic. She is still nonweightbearing and has to wait to get back to the orthopedist at [facility] before she can begin weight- bearing rehab.Since her hospitalization in August, she denies any episodes of palpitations. She spent most of the visit telling me more about her past medical history. She gets intermittent pressure on the left side of her chest that is not related to activity and this has been occurring for years. She was also told she had a heart murmur years ago but it was not felt to be anything concerning. She used to take medication for seizure disorder but after she went 10 years seizure-free, she came off her medication. She has claustrophobia and cannot tolerate a CPAP machine so she wears her oxygen at night. 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 Since 2016 she has held multiple episodes of syncope that have never been worked up. She has no prodrome. She has not had any of these episodes since her leg fracture last year. Records that I personally reviewed on the day of this visit include: (the interpretation is outlined in the HPI above) August 2019 [facility] inpatient records including the consultation note from Dr. Deshpande, progress note from Dr. Zepeda, lab results. Medication list from the care center at [facility]. The I have also reviewed: allergies, current medications, past family history, past medical history, past social history, past surgical history and problem list Review of Systems Constitution: Negative for diaphoresis, fever, malaise/fatigue, weight gain and weight loss. HENT: Negative for hearing loss. Eyes: Negative for visual disturbance. Cardiovascular: Negative for chest pain, claudication, dyspnea on exertion, leg swelling, orthopnea, palpitations, paroxysmal nocturnal dyspnea and syncope. Respiratory: Negative for cough, hemoptysis, shortness of breath, snoring and wheezing. Hematologic/Lymphatic: Does not bruise/bleed easily. Skin: Negative for poor wound healing and rash. Musculoskeletal: Positive for joint pain. Negative for myalgias. Gastrointestinal: Negative for heartburn, nausea and vomiting. Genitourinary: Negative for hematuria. Neurological: Positive for dizziness. Negative for headaches and light-headedness. Gets dizzy when she rolls over in bed Psychiatric/Behavioral: Negative for depression. The patient is not nervous/anxious. Vital Signs: BP 140/78 (BP Location: Right arm, Patient Position: Sitting) Pulse 82 Ht 157.5 cm (5' 2 ) Wt93.9 kg (207 lb) BMI 37.86 kg/m?? Physical Exam Constitutional: She is oriented to person, place, and time. She appears well- developed and well-nourished. No distress. Nasal cannula in place. In a wheelchair. HENT: Head: Normocephalic and atraumatic. Nose: Nose normal. Mouth/Throat: Mucous membranes are normal. Eyes: Pupils are equal, round, and reactive to light. Conjunctivae and EOM are normal. No scleral icterus. Neck: Normal range of motion. No JVD present. No tracheal deviation present. Cardiovascular: Normal rate, regular rhythm and normal heart sounds. No murmur heard. Pulmonary/Chest: Effort normal and breath sounds normal. No respiratory distress. Abdominal: Soft. Bowel sounds are normal. There is no abdominal tenderness. Genitourinary: Genitourinary Comments: Delarosa catheter draining to leg bag Musculoskeletal: Normal range of motion. General: No edema. Comments: Scars visible on the anterior aspect of the left lower leg and the left knee Neurological: She is alert and oriented to person, place, and time. Skin: Skin is warm and dry. Psychiatric: She has a normal mood and affect. Allergies Allergen Reactions ??? Fish Containing Products Anaphylaxis ??? Iodine Unknown ??? Latex Unknown ??? [place]-3 Fatty Acids Unknown ??? Other Unknown seafood ??? Sulfa (Sulfonamide Antibiotics) Unknown ??? Valium [Diazepam] Unknown Current Outpatient Medications: ??? albuterol HFA (PROVENTIL HFA,VENTOLIN HFA,PROAIR HFA) 90 mcg/actuation inhaler, Inhale 2 puffs every 4 (four) hours as needed for shortness of breath. Indications: Asthma Attack, Disp: , Rfl: ??? amLODIPine (NORVASC) 10 mg tablet, Take 10 mg by mouth daily. Indications: high blood pressure,Disp: , Rfl: ??? atorvastatin (LIPITOR) 10 mg tablet, Take 1 tablet (10 mg total) by mouth nightly, Disp: 1 tablet, Rfl: 0 ??? baclofen (LIORESAL) 5 mg tablet, Take 0.5 tablets (2.5 mg total) by mouth 3 (three) times a daywith meals, Disp: 1 tablet, Rfl: 0 ??? cetirizine (ZyrTEC) 10 mg tablet, Take 10 mg by mouth daily. Indications: Seasonal Runny Nose, Disp: , Rfl: ??? cholecalciferol (cholecalciferol) 400 unit capsule, Take 400 Units by mouth daily. Indications:Vitamin D deficiency, Disp: , Rfl: ??? cloNIDine (CATAPRES) 0.2 mg tablet, Take 0.2 mg by mouth 2 (two) times a day. Indications: highblood pressure, Disp: , Rfl: ??? cyclobenzaprine (FLEXERIL) 10 mg tablet, Take 1 tablet (10 mg total) by mouth 3 (three) times aday, Disp: 1 tablet, Rfl: 0 ??? docusate sodium (COLACE) 100 mg capsule, Take 100 mg by mouth daily. Indications: constipation,Disp: , Rfl: ??? estradiol (ESTRACE) 0.5 mg tablet, Take 0.5 mg by mouth daily. Indications: hormone replacement, Disp: , Rfl: ??? famciclovir (FAMVIR) 250 mg tablet, Take 250 mg by mouth 2 (two) times a day. Indications: Other (complete free text reason below), herpes, Disp: , Rfl: ??? fluticasone propionate (FLONASE) 50 mcg/actuation nasal spray, Administer 2 sprays into each nostril daily, Disp: , Rfl: ??? fluticasone propionate (FLOVENT HFA) 110 mcg/actuation inhaler, Inhale 2 puffs daily. Indications: Controller Medication for Asthma, Disp: , Rfl: ??? furosemide (LASIX) 40 mg tablet, Take 40 mg by mouth 2 (two) times a day. Indications: visible water retention, Disp: , Rfl: ??? gabapentin (NEURONTIN) 400 mg capsule, Take 1 capsule (400 mg total) by mouth every 8 (eight) hours, Disp: 1 capsule, Rfl: 0 ??? lidocaine (LIDODERM) 5 %, Place 1 patch on the skin daily, Disp: , Rfl: ??? metoprolol (LOPRESSOR) 25 mg tablet, Take 1 tablet (25 mg total) by mouth every 6 (six) hours, Disp: 1 tablet, Rfl: 0 ??? olmesartan (BENICAR) 40 mg tablet, Take 40 mg by mouth daily. Indications: high blood pressure,Disp: , Rfl: ??? oxyCODONE (ROXICODONE) 10 mg tablet, Take 1 tablet (10 mg total) by mouth every 4 (four) hours as needed for pain, Disp: 20 tablet, Rfl: 0 ??? pantoprazole DR (PROTONIX) 40 mg EC tablet, Take 40 mg by mouth daily. Indications: Stress Ulcer Prophylaxis, Disp: , Rfl: ??? primidone (MYSOLINE) 50 mg tablet, Take 50 mg by mouth 2 (two) times a day. Indications: Essential Tremor, Disp: , Rfl: ??? cefdinir (OMNICEF) 300 mg capsule, , Disp: , Rfl: ??? dicyclomine (BENTYL) 20 mg tablet, TK 1 T PO TID, Disp: , Rfl: 3 ??? diphenhydrAMINE (diphenhydrAMINE) 25 mg capsule, 25 mg, Disp: , Rfl: ??? hydrALAZINE (APRESOLINE) 50 mg tablet, Take 50 mg by mouth 3 (three) times a day. Indications: high blood pressure, Disp: , Rfl: ??? magnesium citrate solution, Take 296 mL by mouth daily as needed (constipation) (Patient not taking: Reported on 12/25/2019), Disp: 1 mL, Rfl: 0 ??? omeprazole (PriLOSEC) 40 mg capsule, Take by mouth daily before breakfast, Disp: , Rfl: 1 ??? polyethylene glycol (MIRALAX) 17 gram/dose powder, Take 17 g by mouth daily. Indications: emptying of the bowel, Disp: , Rfl: ??? triamcinolone (KENALOG) 0.1 % cream, Apply 1 application topically 2 (two) times a day as needed, Disp: , Rfl: 0 ??? vitamin E (AQUASOL E) 400 unit capsule, Take 800 Units by mouth daily. Indications: deficiency of vitamin E, Disp: , Rfl: Lab Results Component Value Date POTASSIUM 4.7 07/01/2019 BUNSER 12 07/01/2019 CREATININE 0.96 07/01/2019 CHOL 152 06/09/2019 TRIG 269 (H) 06/09/2019 LDLCALC 59 12/19/2017 HDL 36 06/09/2019 Assessment: Diagnoses and all orders for this visit: Syncope and collapse (Primary) - Event Monitor, 30 Day Event Atrial fibrillation (CMS/HCC) - Event Monitor, 30 Day Event Hospital discharge follow-up Plan/Recommendations: The patient endorses a history of syncope without evaluation for arrhythmic etiology. She also had a hospitalization for sepsis during which time she had some AFib with RVR. It was felt to be secondary to her critical illness since it resolved during the hospitalization. She sounds like she is in sinus rhythm on exam today. However, given the history of syncope, I am recommending she wear a 30 day event monitor to further assess her rhythm. She agrees. I will follow-up with her over the phone once we have the results of the monitor. I will have her return to the office for follow-up with Dr. Deshpande in about 2 months. The patient agreed to this plan. ANJU Sandra- Nurse Practitioner with [facility] This note is dictated and transcribed using [email or web address] Fluency Direct Software. Electronic Tech variancesmay occur. Despite proofreading, typographical errors may occur. documented in this encounter Plan of Treatment Pending Results Name Type Priority Associated Diagnoses Date /Time Event Monitor, 30 Day Event Cardiac Services Routine Syncope and collapse Atrial fibrillation (CMS/HCC) 12/25/2019 3:50 PM CDT documented as of this encounter Visit Diagnoses Diagnosis Syncope and collapse- Primary Atrial fibrillation (CMS/HCC) (HCC) Atrial fibrillation Hospital discharge follow-up Other follow-up examination documented in this encounter Care Teams Data Entry Technician Relationship Specialty Start Date End Date Bernardo Edwards MD [address] [place] [address] PCP - General 06/14/19 07/04/20 Jose Manuel Gruber MD Fellow Orthopedic Surgery 07/06/19 documented as of this encounter
--- OUTSIDE RECORDS SUMMARY | 2024-08-13 05:01 | XMS_ITS | Encounter Summary ---
Author Organization [facility] Address [address] [place] [address] Care Team Providers Care Manager Sales And Marketing Name Role Phone Jose Manuel Gruber MD Unavailable [phone] Bernardo Edwards MD Primary Care Provider Reason for Visit * (Routine) - Closed Specialty Diagnoses / Procedures Referred By Contac t Referred To Contact Diagnoses Syncope and collapse Atrial fibrillation (CMS/HCC) (HCC) Procedures Event Monitor, 30 Day Event Xiomara Oakley NP [address] [address] Phone: tel: fax: Referral ID Status Reason Start Date Expiration Date Visits Re quested Visits Authorized [id number] Closed 12/25/2019 07/05/2021 1 1 Encounter Details Date Type Department Care Team (Late st Contact Info) Description 12/25/2019 3:00 PM CDT Ancillary Procedure [facility] Cardiology [address] [id number] Social History Tobacco Use Types Packs/Day Years [...] as of this encounter Progress Notes * Xiomara Oakley NP - 12/25/2019 3:00 PM CDT I placed a 30 day event monitor b/c she has a history of syncope without evaluation for arrhythmic etiology. She also had a hospitalization for sepsis during which time she had some AFib with RVR. The Afib was thought to be secondary to her critical illness. Please call her to let her know the event monitor was fine. She had no more afib, and no abnormal rhythms that would explain her history of syncope. Keep appt with Dr. Deshpande next month. Thanks. documented in this encounter Procedure Notes * Brittany Read MD - 12/25/2019 12:00 AM CDT 30 DAY MONITOR History A 69-year-old female with an episode of AFib during hospitalization for sepsis, being evaluated forany recurrence. The patient was given the monitor for 30 days and was monitored for 24 days. The underlying rhythm was sinus with an average heart rate 79 beats (range 56-120 beats per minute). Rare APCs and PVCs were seen with a less than 1% burden. There was no atrial fibrillation, SVT, pause, heart block or ventricular tachycardia. The patient had 1 symptom of a skipped beat and that was associated with sinusrhythm. Conclusion Unremarkable 24-day monitor. No atrial fibrillation seen. Job ID/VF Job ID: [id number] Electronically Verified By, 02/02/20 9:46 AM documented in this encounter Plan of Treatment Pending Results Name Type Priority Associated Diagnoses Date /Time Event Monitor, 30 Day Event Cardiac Services Routine Syncope and collapse Atrial fibrillation ([facility]/HCC) 12/25/2019 3:50 PM CDT documented as of this encounter Visit Diagnoses Not on filedocumented in this encounter Care Teams Manager Sales And Marketing Relationship Specialty Start Date End Date Bernardo Edwards MD [address] [place] [address] PCP - General 06/14/19 07/04/20 Jose Manuel Gruber MD Fellow Orthopedic Surgery 07/06/19 documented as of this encounter
--- OUTSIDE RECORDS SUMMARY | 2024-08-13 05:01 | XMS_ITS | Encounter Summary ---
Author Organization [facility] Address [address] [place] [address] Care Team Providers Care Car Oiler Name Role Phone Jose Manuel Gruber MD Unavailable Bernardo Edwards MD Primary Care Provider [phone] Encounter Details Date Type Department Care Team (Late st Contact Info) Description 09/14/2019 Orders Only [facility] Cardiology [address] [address] Sejal Mcarthur HAIR STYLIST [address] [facility] [address] [place] [address] Social History Tobacco Use Types [...] Associated Diagnosis Comments CARDIOLOGY DOCUMENT SCAN Routine 09/14/2019 documented in this encounter Results * SCAN - CARDIOLOGY (09/14/2019) Anatomical Region Laterality Modality Other Sejal Mcarthur HAIR STYLIST CV CARDIAC SERVICES PROCEDURES F inal Result documented in this encounter Visit Diagnoses Not on filedocumented in this encounter Care Teams Car Oiler Relationship Specialty Start Date End Date Bernardo Edwards MD [facility] [place] [address] PCP - General 06/14/19 07/04/20 Jose Manuel Gruber MD Fellow Orthopedic Surgery 07/06/19 documented as of this encounter
--- OUTSIDE RECORDS SUMMARY | 2024-08-13 05:01 | XMS_ITS | Encounter Summary ---
Author Organization [facility] Address [address] [place] [address] Care Team Providers Care Core Winder Name Role Phone Jose Manuel Gruber MD Unavailable [phone] Bernardo Edwards MD Primary Care Provider [phone] Reason for Referral * Diagnostic Imaging (Routine) - Closed Specialty Diagnoses / Procedures Referred By Contac t Referred To Contact Diagnoses Closed displaced bimalleolar fracture of right ankle with routine healing, subsequent encounter Procedures XR Ankle Right 3 or More Views Jacobo Shoemaker MD Phone: tel: fax: [facility] Referral ID Status Reason Start Date Expiration Date Visits Re quested Visits Authorized [id number] Closed 05/06/2020 06/05/2021 1 1 * Diagnostic Imaging (Routine) - Closed Specialty Diagnoses / Procedures Referred By Contac t Referred To Contact Diagnoses Type III open displaced comminuted fracture of shaft of left tibia with routine healing, subsequent encounter Procedures XR Tibia Fibula Left 2 Views Jacobo Shoemaker MD Phone: tel: fax: [facility] Referral ID Status Reason Start Date Expiration Date Visits Re quested Visits Authorized [id number] Closed 05/06/2020 06/05/2021 1 1 Reason for Visit * Diagnostic Imaging (Routine) - Closed Specialty Diagnoses / Procedures Referred By Kesha t Referred To Contact Diagnoses Type III open displaced comminuted fracture of shaft of left tibia with routine healing, subsequent encounter Procedures XR Tibia Fibula Left 2 Views Jacobo Shoemaker MD Phone: tel: fax: [facility] Referral ID Status Reason Start Date Expiration Date Visits Re quested Visits Authorized [id number] Closed 05/06/2020 06/05/2021 1 1 Encounter Details Date Type Department Care Team (Late st Contact Info) Description 05/07/2020 2:00 PM CDT - 05/07/2020 11:59 PM CDT Hospital Encounter [facility] [address] [place] [address] Jacobo Shoemaker MD [address] [facility] [address] [place] [address] Type III open displaced comminuted fracture of [...] constipation enoxaparin (LOVENOX) 40 mg/0.4 mL syringe 03/29/2020 famciclovir (FAMVIR) 250 mg tabletIndications :Other (complete [...] 1 patch on the skin daily 06/14/2019 LORazepam (ATIVAN) 0.5 mg tablet Take 0.5 mg by mouth every 8 (eight) hours as needed for anxiety 05/04/2020 metoprolol (LOPRESSOR) 25 mg tablet Take 1 tablet (25 mg total) by mouth every 6 (six) hours 1 tablet 07/04/2019 Nyamyc powder 03/01/2020 olmesartan (BENICAR) 40 mg tabletIndications :hypertension Take 40 mg by mouth daily. Indications: high blood pressure ondansetron (ZOFRAN) 4 mg tablet 12/30/[address] (PROTONIX) 40 mg EC tabletIndications :Stress Ulcer Prophylaxis Take 40 mg by mouth daily. Indications: Stress Ulcer Prophylaxis primidone (MYSOLINE) 50 mg tablet 05/05/2020 spironolactone (ALDACTONE) 25 mg tablet Take 1 tablet (25 mg total) by mouth daily 30 tablet 11 03/06/2020 vitamin E (AQUASOL E) 400 unit capsuleIndication s:Vitamin E Deficiency Take 800 Units by mouth daily. Indications: deficiency of vitamin E albuterol HFA (PROVENTIL HFA,VENTOLIN HFA,PROAIR HFA) 90 mcg/actuation inhalerIndication s:Acute Asthma Attack Inhale 2 puffs every 4 (four) hours as needed for shortness of breath. Indications: Asthma Attack 3 ALPRAZolam (XANAX) 0.25 mg tablet 04/02/2020 0 cephalexin (KEFLEX) 500 mg capsule 04/24/2020 0 doxycycline 100 mg tablet 05/01/2020 0 gabapentin (NEURONTIN) 400 mg capsule Take 1 capsule (400 mg total) by mouth every 8 (eight) hours 1 capsule 07/04/2019 2 oxyCODONE (ROXICODONE) 10 mg tabletIndications :Pain Take 1 tablet (10 mg total) by mouth every 4 (four) hours as needed for pain 20 tablet 07/06/2019 0 oxyCODONE-acetami nophen (PERCOCET) 5-325 mg per tablet 01/07/2020 0 documented as of this encounter Discharge Disposition Disposition Code Departure Means Destination Discharge to home or self care documented in this encounter Plan of Treatment Not on file documented as of this encounter Procedures Procedure Name Priority Date/Time Associated Diagnosis Comments XR ANKLE RIGHT 3 OR MORE VIEWS Schedule Routine, Read Routine (OP Routine) 05/07/2020 2:19 PM CDT Closed displaced bimalleolar fracture of right ankle with routine healing, subsequent encounter XR TIBIA FIBULA LEFT 2 VIEWS Schedule Routine, Read Routine (OP Routine) 05/07/2020 2:19 PM CDT Type III open displaced comminuted [...] medial malleolus fracture. Electronically signed by: Ramez Bhnadari M.D. Narrative 05/07/2020 2:29 PM CDT EXAMINATION: [...] encounter documented in this encounter Care Teams Core Winder Relationship Specialty Start Date End Date Bernardo Edwards MD [facility] [place] [address] PCP - General 06/14/19 07/04/20 Jose Manuel Gruber MD Fellow Orthopedic Surgery 07/06/19 documented as of this encounter
--- OUTSIDE RECORDS SUMMARY | 2024-08-13 05:01 | XMS_ITS | Encounter Summary ---
Author Organization [facility] Address [address] [place] [address] Care Team Providers Care Microbiology Quality Control Technician Name Role Phone Jose Manuel Gruber MD Unavailable [phone] Bernardo Edwards MD Primary Care Provider [phone] Encounter Details Date Type Department Care Team (Late st Contact Info) Description 09/13/2019 Orders Only [facility] Cardiology [address] [address] Brittany Read MD [address] [facility] [address] [place] [address] Social History Tobacco Use Types [...] Associated Diagnosis Comments CARDIOLOGY DOCUMENT SCAN Routine 09/13/2019 documented in this encounter Results * SCAN - CARDIOLOGY (09/13/2019) Anatomical Region Laterality Modality Other us Brittany Read MD CV CARDIAC SERVICES PROCEDU RES Final Result documented in this encounter Visit Diagnoses Not on filedocumented in this encounter Care Teams Microbiology Quality Control Technician Relationship Specialty Start Date End Date Bernardo Edwards MD [facility] [place] [address] PCP - General 06/14/19 07/04/20 Jose Manuel Gruber MD Fellow Orthopedic Surgery 07/06/19 documented as of this encounter
--- OUTSIDE RECORDS SUMMARY | 2024-08-13 05:01 | XMS_ITS | Encounter Summary ---
Author Organization [facility] Address [address] [place] [address] Care Team Providers Care Production Planner Name Role Phone Jose Manuel Gruber MD Unavailable [phone] Bernardo Edwards MD Primary Care Provider [phone] Encounter Details Date Type Department Care Team (Late st Contact Info) Description 10/17/2019 Telephone [facility] Cardiology [address] [facility] [address] [facility] [address] [place] [address] [place] [id number] Social History Tobacco Use Types Packs/Day Years [...] encounter Miscellaneous Notes * Telephone Encounter - Holly Santiago, RN - 10/17/2019 2:06 PM CDT Spoke with Janis at [facility]-told her that she will receive a phone call the week of their pts appt to determine if it needs to be rescheduled, or kept or made into a telephone appt d/tcovid-19. She verbalized understanding. * Telephone Encounter - Laurie Rivera - 10/17/2019 1:50 PM CDT Janis at [facility] at [facility] would like to know if patient should keep her appointment onApril [address] Deshpande , due to transportation and the COVID 19, call #[phone] and ask for the [address] [place] [address] nurse site. documented in this encounter Plan of Treatment Not on file documented as of this encounter Visit Diagnoses Not on filedocumented in this encounter Care Teams Production Planner Relationship Specialty Start Date End Date Bernardo Edwards MD [address] [place] [address] PCP - General 06/14/19 07/04/20 Jose Manuel Gruber MD Fellow Orthopedic Surgery 07/06/19 documented as of this encounter
--- OUTSIDE RECORDS SUMMARY | 2024-08-13 05:01 | XMS_ITS | Encounter Summary ---
Author Organization [facility] Address [address] [place] [address] Phone Care Team Providers Care Managing Supervisor Name Role Phone Jose Manuel Gruber MD Unavailable [phone] Bernardo Edwards MD Primary Care Provider [phone] Reason for Visit * Reason Comments Post-op Post-op Encounter Details Date Type Department Care Team (Late st Contact Info) Description 07/21/2019 1:35 PM ACRYLIC FABRICATOR Office Visit [facility] Orthopaedic Surgery [address] [address] Medicine 6th [place] [address] [place] [id number] Jose Manuel Gruber MD [address] [place] [address] Type III open displaced comminuted fracture of shaft of left tibia, initial encounter (Primary Dx) Social History Tobacco Use [...] as of this encounter Progress Notes * Jose Manuel Gruber MD - 07/21/2019 1:35 PM CST Images from the original note were not included. ESTABLISHED PATIENT VISIT INTERIM HISTORY June 30, 2019 irrigation debridement, open reduction internal fixation left type 3 open proximaltibia fracture, open reduction internal fixation right medial malleolus fracture. Patient comes in today for follow-up. She has been in a facility. She has been nonweightbearing on bilateral lower extremities. Pain is well controlled. She has been hinged knee brace on the left and a short-leg splint on the right. Denies numbness or tingling. He is here for further evaluation. PHYSICAL EXAMINATION Patient is alert and in no acute distress. Examination of the left lower extremity shows healed traumatic wound without surrounding erythema, drainage, induration. Small area of questionable skin around the confluence of her traumatic wound. Sutures intact. Gross motor and sensory function are intact in the extremity. Examination of the right lower extremity shows well-healed surgical incision over the medial ankle without surrounding erythema, drainage, induration. Gross motor sensory functionintact in the extremity. Warm well- perfused foot. REVIEW OF X-RAYS/STUDIES No new imaging is obtained today. Assessment/Plan IMPRESSION/DIAGNOIS 68-year-old female is approximately 3 weeks out from irrigation reaming, open reduction internal fixation left type 3 open proximal tibia fracture, open reduction internal fixation right medial malleolar fracture TREATMENT PLAN Sutures were discontinued today. Continue nonweightbearing bilateral lower extremities. She should stay in the hinged knee brace locked in extension on the left. Provided with a Cam boot for the right. She may come out of the boot multiple times it work on ankle range of motion. Wound care instructions were provided. Plans discussed with the patient acknowledged understanding agreed. All questions are answered. FOLLOW UP Navid 3-5 weeks with radiographs of the left tibia and fibula and right ankle. Jose Manuel Gruber MD LIC FABRICATOR documented in this encounter Plan of Treatment Not on file documented as of this encounter Visit Diagnoses Diagnosis Type III open displaced comminuted fracture of shaft of left tibia, initial encounter- Primary documented in this encounter Historical Medications * This list may reflect changes made after this encounter. omeprazole (PriLOSEC) 40 mg capsule Take by mouth daily before breakfast 1 06/03/2019 0 diphenhydrAMINE (diphenhydrAMINE ) 25 mg capsule 25 mg 06/13/2019 0 dicyclomine (BENTYL) 20 mg tablet TK 1 T PO TID 3 06/14/2019 0 added in this encounter Care Teams Managing Supervisor Relationship Specialty Start Date End Date Bernardo Edwards MD [facility] [place] [address] PCP - General 06/14/19 07/04/20 Jose Manuel Gruber MD Fellow Orthopedic Surgery 07/06/19 documented as of this encounter
--- OUTSIDE RECORDS SUMMARY | 2024-08-13 05:01 | XMS_ITS | Encounter Summary ---
Author Organization [facility] Address [address] [place] [address] Care Team Providers Care Filenet Architect Name Role Phone Jose Manuel Gruber MD Unavailable [phone] Bernardo Edwards MD Primary Care Provider Reason for Referral * Diagnostic Imaging (Routine) - Closed Specialty Diagnoses / Procedures Referred By Contac t Referred To Contact Diagnoses Type III open displaced comminuted fracture of shaft of left tibia with routine healing, subsequent encounter Procedures XR Tibia Fibula Left 2 Views Jacobo Shoemaker MD Phone: tel: fax: [facility] Referral ID Status Reason Start Date Expiration Date Visits Re quested Visits Authorized [id number] Closed 08/11/2019 02/19/2021 1 1 ATING SYSTEMS SPECIALIST * Diagnostic Imaging (Routine) - Closed Specialty Diagnoses / Procedures Referred By Contac t Referred To Contact Diagnoses Closed displaced bimalleolar fracture of right ankle with routine healing, subsequent encounter Procedures XR Ankle Right 3 or More Views Jacobo Shoemaker MD Phone: tel: fax: [facility] Referral ID Status Reason Start Date Expiration Date Visits Re quested Visits Authorized [id number] Closed 08/11/2019 02/19/2021 1 1 ATING SYSTEMS SPECIALIST Reason for Visit * Diagnostic Imaging (Routine) - Closed Specialty Diagnoses / Procedures Referred By Contac t Referred To Contact Diagnoses Closed displaced bimalleolar fracture of right ankle with routine healing, subsequent encounter Procedures XR Ankle Right 3 or More Views Jacobo Shoemaker MD Phone: tel: fax: [facility] Advanced Medicine Referral ID Status Reason Start Date Expiration Date Visits Re quested Visits Authorized [id number] Closed 08/11/2019 02/19/2021 1 1 Encounter Details Date Type Department Care Team (Late st Contact Info) Description 08/15/2019 1:28 PM OPERATING SYSTEMS SPECIALIST - 08/15/2019 11:59 PM OPERATING SYSTEMS SPECIALIST Hospital Encounter [facility] Radiology [facility] [address] [place] [address] Jacobo Shoemaker MD [address] [facility] [address] [place] [address] Closed displaced bimalleolar fracture of right ankle with routine healing, subsequent encounter; Type III open displaced comminuted fracture of shaft of left tibia with routine healing, subsequent encounter Discharge Disposition: [...] mouth daily. Indications: deficiency of vitamin E acetaminophen 500 mg capsule Take 2 capsules (1,000 mg total) by mouth every 6 (six) hours 1 capsule 07/04/2019 0 albuterol HFA (PROVENTIL HFA,VENTOLIN HFA,PROAIR HFA) [...] times a day. Indications: Essential Tremor 0 senna (SENOKOT) 8.6 mg tablet Take 1 tablet by mouth 2 (two) times a day 1 tablet 07/04/2019 0 triamcinolone (KENALOG) 0.1 % cream Apply [...] VIEWS Schedule Routine, Read Routine (OP Routine) 08/15/2019 1:49 PM OPERATING SYSTEMS SPECIALIST Closed displaced bimalleolar fracture of right ankle with routine healing, subsequent encounter XR TIBIA FIBULA LEFT 2 VIEWS Schedule Routine, Read Routine (OP Routine) 08/15/2019 1:49 PM OPERATING SYSTEMS SPECIALIST Type III open displaced comminuted fracture of shaft of left tibia with routine healing, subsequent encounter documented in this encounter Results * XR Tibia Fibula Left 2 Views (08/15/2019 1:49 PM OPERATING SYSTEMS SPECIALIST) Anatomical Region Laterality Modality Lower Extremities, Lower Leg Left Com puted Radiography 08/15/2019 1:55 PM OPERATING SYSTEMS SPECIALIST Impressions 08/15/2019 1:55 PM OPERATING SYSTEMS SPECIALIST 1. ??Healing, reduced and internally fixated, open periprosthetic fracture of the proximal left tibia. 2. ??Healing, reduced and internally fixated right distal tibial intra-articular fracture involving the medial malleolus. Electronically signed by: Rui Griffin M.D. Narrative 08/15/2019 1:55 PM OPERATING SYSTEMS SPECIALIST EXAMINATION: XR ANKLE RIGHT 3 OR MORE VIEWS, XR TIBIA FIBULA LEFT 2 VIEWS HISTORY: Right tibial fracture, left tibial fracture COMPARISON: 06/29/2019 FINDINGS: Right ankle: 3 view nonweightbearing examination of the right ankle is performed. ??There is a healing, internally fixated, sagittal fracture of the medial malleolus stabilized with medial plate and screws. ??There is a tiny chip fracture of the posterior malleolus that is healing. ??There is mature heterotopic ossification in the lateral ankle ligaments from sprain. ??Mild subcutaneous edema and disuse osteoporosis are present. Left le view examination of the left leg is performed. ??There is a left total knee arthroplasty. ??The open, comminuted periprosthetic fracture of the proximal tibia adjacent to the tibial component is reduced and internally fixated with plates and screws. ??There is evidence of early healing. ??There is a small knee effusion. ??There is a healing, mildly displaced, segmental fracture of the proximal fibula. ??Distally, there are old, healed and internally fixated distal fibular and medial malleolar fractures. Procedure Note Rui Griffin MD - 08/15/2019 EXAMINATION: XR ANKLE RIGHT 3 OR MORE VIEWS, XR TIBIA FIBULA LEFT 2 VIEWS HISTORY: Right tibial fracture, left tibial fracture COMPARISON: 06/29/2019 FINDINGS: Right ankle: 3 view nonweightbearing examination of the right ankle is performed. There is a healing, internally fixated, sagittal fracture of the medial malleolus stabilized with medial plate and screws. There is a tiny chip fracture of the posterior malleolus that is healing. There is mature heterotopic ossification in the lateral ankle ligaments from sprain. Mild subcutaneous edema and disuse osteoporosis are present. Left le view examination of the left leg is performed. There is a left total knee arthroplasty. The open, comminuted periprosthetic fracture of the proximal tibia adjacent to the tibial component is reduced and internally fixated with plates and screws. There is evidence of early healing. There is a small knee effusion. There is a healing, mildly displaced, segmental fracture of the proximal fibula. Distally, there are old, healed and internally fixated distal fibular and medial malleolar fractures. IMPRESSION: 1. Healing, reduced and internally fixated, open periprosthetic fracture of the proximal left tibia. 2. Healing, reduced and internally fixated right distal tibial intra-articular fracture involving the medial malleolus. Electronically signed by: Rui Griffin M.D. us Jacobo Shoemaker MD IMG XR PROCEDURE S Final Result * XR Ankle Right 3 or More Views (08/15/2019 1:49 PM OPERATING SYSTEMS SPECIALIST) Anatomical Region Laterality Modality Lower Extremities, Ankle Right Compute d Radiography 08/15/2019 1:55 PM OPERATING SYSTEMS SPECIALIST Impressions 08/15/2019 1:55 PM OPERATING SYSTEMS SPECIALIST 1. ??Healing, reduced and internally fixated, open periprosthetic fracture of the proximal left tibia. 2. ??Healing, reduced and internally fixated right distal tibial intra-articular fracture involving the medial malleolus. Electronically signed by: Rui Griffin M.D. Narrative 08/15/2019 1:55 PM OPERATING SYSTEMS SPECIALIST EXAMINATION: XR ANKLE RIGHT 3 OR MORE VIEWS, XR TIBIA FIBULA LEFT 2 VIEWS HISTORY: Right tibial fracture, left tibial fracture COMPARISON: 06/29/2019 FINDINGS: Right ankle: 3 view nonweightbearing examination of the right ankle is performed. ??There is a healing, internally fixated, sagittal fracture of the medial malleolus stabilized with medial plate and screws. ??There is a tiny chip fracture of the posterior malleolus that is healing. ??There is mature heterotopic ossification in the lateral ankle ligaments from sprain. ??Mild subcutaneous edema and disuse osteoporosis are present. Left le view examination of the left leg is performed. ??There is a left total knee arthroplasty. ??The open, comminuted periprosthetic fracture of the proximal tibia adjacent to the tibial component is reduced and internally fixated with plates and screws. ??There is evidence of early healing. ??There is a small knee effusion. ??There is a healing, mildly displaced, segmental fracture of the proximal fibula. ??Distally, there are old, healed and internally fixated distal fibular and medial malleolar fractures. Procedure Note Rui Griffin MD - 08/15/2019 EXAMINATION: XR ANKLE RIGHT 3 OR MORE VIEWS, XR TIBIA FIBULA LEFT 2 VIEWS HISTORY: Right tibial fracture, left tibial fracture COMPARISON: 06/29/2019 FINDINGS: Right ankle: 3 view nonweightbearing examination of the right ankle is performed. There is a healing, internally fixated, sagittal fracture of the medial malleolus stabilized with medial plate and screws. There is a tiny chip fracture of the posterior malleolus that is healing. There is mature heterotopic ossification in the lateral ankle ligaments from sprain. Mild subcutaneous edema and disuse osteoporosis are present. Left le view examination of the left leg is performed. There is a left total knee arthroplasty. The open, comminuted periprosthetic fracture of the proximal tibia adjacent to the tibial component is reduced and internally fixated with plates and screws. There is evidence of early healing. There is a small knee effusion. There is a healing, mildly displaced, segmental fracture of the proximal fibula. Distally, there are old, healed and internally fixated distal fibular and medial malleolar fractures. IMPRESSION: 1. Healing, reduced and internally fixated, open periprosthetic fracture of the proximal left tibia. 2. Healing, reduced and internally fixated right distal tibial intra-articular fracture involving the medial malleolus. Electronically signed by: Rui Griffin M.D. us Jacobo Shoemaker MD IMG XR PROCEDURE S Final Result documented in this encounter Visit Diagnoses Diagnosis Closed displaced bimalleolar fracture of right ankle with routine healing, subsequent encounter Type III open displaced comminuted fracture of shaft of left tibia with routine healing, subsequent encounter documented in this encounter Care Teams Filenet Architect Relationship Specialty Start Date End Date Bernardo Edwards MD [facility] [place] [address] PCP - General 06/14/19 07/04/20 Jose Manuel Gruber MD Fellow Orthopedic Surgery 07/06/19 documented as of this encounter
--- OUTSIDE RECORDS SUMMARY | 2024-08-13 05:01 | XMS_ITS | Encounter Summary ---
Author Organization [facility] Address [address] [place] [address] Care Team Providers Care Sailor Name Role Phone Jose Manuel Gruber MD Unavailable Bernardo Edwards MD Primary Care Provider [phone] Encounter Details Date Type Department Care Team (Late st Contact Info) Description 09/17/2019 Orders Only [facility] Cardiology [address] [place] [address] Vinod Deshpande MD [facility] [place] [id number] Social History Tobacco Use Types Packs/Day Years [...] Associated Diagnosis Comments CARDIOLOGY DOCUMENT SCAN Routine 09/17/2019 documented in this encounter Results * SCAN - CARDIOLOGY (09/17/2019) Anatomical Region Laterality Modality Other Vinod Deshpande MD CV CARDIAC SERVICES PROCEDURES F inal Result documented in this encounter Visit Diagnoses Not on filedocumented in this encounter Care Teams Sailor Relationship Specialty Start Date End Date Bernardo Edwards MD [address] [place] [address] PCP - General 06/14/19 07/04/20 Jose Manuel Gruber MD Fellow Orthopedic Surgery 07/06/19 documented as of this encounter
--- OUTSIDE RECORDS SUMMARY | 2024-08-13 05:01 | XMS_ITS | Encounter Summary ---
Author Organization [facility] Address [address] [place] [address] Phone Care Team Providers Care Can Handler Name Role Phone Jose Manuel Gruber MD Unavailable [phone] Bernardo Edwards MD Primary Care Provider [phone] Encounter Details Date Type Department Care Team (Late st Contact Info) Description 02/07/2020 Orders Only [facility] Orthopaedic Surgery [address] [facility] Advanced Medicine 6th [place] [address] [place] [address] Jona Sauceda MD [address] [facility] [address] [place] [address] Type III open displaced comminuted fracture of [...] as of this encounter Progress Notes * Malena Ernandez RMA - 02/07/2020 2:17 PM CDT Pt order sent documented in this encounter Plan of Treatment Not on file documented as of this encounter Visit Diagnoses Diagnosis Type III open displaced comminuted fracture of shaft of left tibia with routine healing, subsequent encounter- Primary documented in this encounter Care Teams Can Handler Relationship Specialty Start Date End Date Bernardo Edwards MD [address] [place] [address] PCP - General 06/14/19 07/04/20 Jose Manuel Gruber MD Fellow Orthopedic Surgery 07/06/19 documented as of this encounter
--- OUTSIDE RECORDS SUMMARY | 2024-08-13 05:01 | XMS_ITS | Encounter Summary ---
Author Organization [facility] Address [address] [place] [address] Care Team Providers Care Taxonomist Name Role Phone Jose Manuel Gruber MD Unavailable Bernardo Edwards MD Primary Care Provider [phone] Encounter Details Date Type Department Care Team (Late st Contact Info) Description 09/15/2019 Orders Only [facility] Cardiology [address] [address] Sejal Mcarthur CUFF MAKER [address] [facility] [address] [place] [address] Social History Tobacco Use Types [...] Associated Diagnosis Comments CARDIOLOGY DOCUMENT SCAN Routine 09/15/2019 documented in this encounter Results * SCAN - CARDIOLOGY (09/15/2019) Anatomical Region Laterality Modality Other Sejal Mcarthur CUFF MAKER CV CARDIAC SERVICES PROCEDURES F inal Result documented in this encounter Visit Diagnoses Not on filedocumented in this encounter Care Teams Taxonomist Relationship Specialty Start Date End Date Bernardo Edwards MD [facility] [place] [address] PCP - General 06/14/19 07/04/20 Jose Manuel Gruber MD Fellow Orthopedic Surgery 07/06/19 documented as of this encounter
--- OUTSIDE RECORDS SUMMARY | 2024-08-13 05:01 | XMS_ITS | Encounter Summary ---
Author Organization [facility] Address [address] [place] [address] Phone Care Team Providers Care Document Control Manager Name Role Phone Jose Manuel Gruber MD Unavailable [phone] Bernardo Edwards MD Primary Care Provider Reason for Referral * Diagnostic Imaging (Routine) - Closed Specialty Diagnoses / Procedures Referred By Contac t Referred To Contact Diagnoses Closed displaced bimalleolar fracture of right ankle with routine healing, subsequent encounter Procedures XR Ankle Right 3 or More Views Jacobo Shoemaker MD Phone: tel: fax: [facility] Referral ID Status Reason Start Date Expiration Date Visits Re quested Visits Authorized [id number] Closed 08/11/2019 02/19/2021 1 1 L OPPORTUNITY SPECIALIST * Diagnostic Imaging (Routine) - Closed Specialty Diagnoses / Procedures Referred By Contac t Referred To Contact Diagnoses Type III open displaced comminuted fracture of shaft of left tibia with routine healing, subsequent encounter Procedures XR Tibia Fibula Left 2 Views Jacobo Shoemaker MD Phone: tel: fax: [facility] Referral ID Status Reason Start Date Expiration Date Visits Re quested Visits Authorized [id number] Closed 08/11/2019 02/19/2021 1 1 L OPPORTUNITY SPECIALIST Reason for Visit * Reason Comments Post-op Encounter Details Date Type Department Care Team (Late st Contact Info) Description 08/15/2019 12:10 PM EQUAL OPPORTUNITY SPECIALIST Office Visit [facility] Orthopaedic Surgery [address] 6th [place] [address] [place] [address] Jacobo Shoemaker MD [address] [facility] [place] [address] Type III open displaced comminuted fracture of [...] Progress Notes * Jacobo Shoemaker MD - 08/15/2019 12:10 PM CST POST OP VISIT INTERIM HISTORY Overall feeling better, resolving wounds PHYSICAL EXAMINATION Wounds appear to be healing, distally neurovascular intact left lower and right lower extremities. No pain with range of motion of the knee and hip. REVIEW OF X-RAYS/STUDIES I have ordered and personally reviewed xrays of the patient's left tibia and right ankle which demonstrate maintained alignment small amount of interval healing IMPRESSION Slowly healing fractures and wound PLAN/FOLLOW UP Continue nonweightbearing, follow up in 3 weeks with repeat x-rays of the left tibia and right ankle Jacobo Shoemaker MD MSc Orthopedic Trauma Service [facility] Orthopedics Jacobo Shoemaker MD MSc dictating using Fluency Direct Software. Central Office Maintainer variances may occur. L OPPORTUNITY SPECIALIST documented in this encounter Plan of Treatment Not on file documented as of this encounter Results * XR Ankle Right 3 or More Views (08/15/2019 1:49 PM EQUAL OPPORTUNITY SPECIALIST) Anatomical Region Laterality Modality Lower Extremities, Ankle Right Compute d Radiography 08/15/2019 1:55 PM EQUAL OPPORTUNITY SPECIALIST Impressions 08/15/2019 1:55 PM EQUAL OPPORTUNITY SPECIALIST 1. ??Healing, reduced and internally fixated, open periprosthetic fracture of the proximal left tibia. 2. ??Healing, reduced and internally fixated right distal tibial intra-articular fracture involving the medial malleolus. Electronically signed by: Rui Griffin M.D. Narrative 08/15/2019 1:55 PM EQUAL OPPORTUNITY SPECIALIST EXAMINATION: XR ANKLE RIGHT 3 OR [...] Fibula Left 2 Views (08/15/2019 1:49 PM EQUAL OPPORTUNITY SPECIALIST) Anatomical Region Laterality Modality Lower Extremities, Lower Leg Left Com puted Radiography 08/15/2019 1:55 PM EQUAL OPPORTUNITY SPECIALIST Impressions 08/15/2019 1:55 PM EQUAL OPPORTUNITY SPECIALIST 1. ??Healing, reduced and internally fixated, open periprosthetic fracture of the proximal left tibia. 2. ??Healing, reduced and internally fixated right distal tibial intra-articular fracture involving the medial malleolus. Electronically signed by: Rui Griffin M.D. Narrative 08/15/2019 1:55 PM EQUAL OPPORTUNITY SPECIALIST EXAMINATION: XR ANKLE RIGHT 3 OR [...] the medial malleolus. Electronically signed by: Rui Jalen Griffin, M.D. us Jacobo Shoemaker MD IMG XR PROCEDURE S Final Result documented in this encounter Visit Diagnoses Diagnosis Type III open displaced comminuted fracture of shaft of left tibia with routine healing, subsequent encounter- Primary Closed displaced bimalleolar fracture of right ankle with routine healing, subsequent encounter Closed displaced bimalleolar fracture of right ankle with routine healing, subsequent encounter Type III open displaced comminuted fracture of shaft of left tibia with routine healing, subsequent encounter documented in this encounter Historical Medications * This list may reflect changes made after this encounter. Medication Sig Dispense Quantity Refills Last Filled Start D ate End Date cefdinir (OMNICEF) 300 mg capsule 07/29/2019 03/06/2020 added in this encounter Care Teams Document Control Manager Relationship Specialty Start Date End Date Bernardo Edwards MD [facility] [place] [address] PCP - General 06/14/19 07/04/20 Jose Manuel Gruber MD Fellow Orthopedic Surgery 07/06/19 documented as of this encounter
--- OUTSIDE RECORDS SUMMARY | 2024-08-13 05:02 | XMS_ITS | Encounter Summary ---
Author Organization [facility] Address [address] [place] [address] Care Team Providers Care Box Worker Name Role Phone Bernardo Edwards MD Primary Care Provider [phone] Encounter Details Date Type Department Care Team (Late st Contact Info) Description 07/01/2019 Orders Only [facility] Cardiology [address] [place] [address] Provider, MD Lucille [address] [place], [place] [id number] Social History Tobacco Use Types Packs/Day Years Used Date Smoking Tobacco: Never Assessed Hunger Vital Sign Answer Date Recorded Worried [...] Associated Diagnosis Comments CARDIOLOGY DOCUMENT SCAN Routine 06/12/2019 documented in this encounter Results * SCAN - CARDIOLOGY (06/12/2019) Anatomical Region Laterality Modality Other Historical Provider [facility] Final Result documented in this encounter Visit Diagnoses Not on filedocumented in this encounter Care Teams Box Worker Relationship Specialty Start Date End Date Bernardo Edwards MD [address] [place] [address] PCP - General 06/14/19 07/04/20 documented as of this encounter
--- OUTSIDE RECORDS SUMMARY | 2024-08-13 05:02 | XMS_ITS | Encounter Summary ---
Author Organization [facility] Facility Care Team Providers Care Tablet Coater Name Role Phone Bernardo Edwards MD Primary Care Provider [phone] Encounter Details Date Type Department Care Team (Latest Contact Info) Description 07/02/2019 Travel Social History Tobacco Use Types Packs/Day [...] on filedocumented in this encounter Care Teams Tablet Coater Relationship Specialty Start Date End Date Bernardo Edwards MD [address] [place] [address] PCP - General 06/14/19 07/04/20 documented as of this encounter
--- OUTSIDE RECORDS SUMMARY | 2024-08-13 05:02 | XMS_ITS | Encounter Summary ---
Author Organization [facility] Address [address] [place] [address] Phone Care Team Providers Care Receiving Teller Name Role Phone Bernardo Edwards MD Primary Care Provider [phone] Reason for Visit * Auth/Cert Specialty Diagnoses / Procedures Referred By Kesha diggs Referred To Contact Referral ID Status Reason Start Date Expiration Date Visits Re quested Visits Authorized [id number] 1 1 Encounter Details Date Type Department Care Team (Late st Contact Info) Description 06/28/2019 Home Care Visit [facility] [address] [place] [address] Corine Felix, PT PT OASIS TRANSFER W/OUT DC Social History Tobacco Use Types Packs/Day Years [...] - Care Plan Visit Details Visit Type -PT OASIS Transfe r w/o DC Discipline -Physical Therapy Problems Problem Description Start Date Status Goals Interve ntions Homebound Status Disciplines: Longterm, Physical Therapy, Occupational Therapy Patient's homebound status 06/15/2019 Active 1 goal linked to scheduled/docume nted intervention 1 goal intervention scheduled/documen jeannie in this visit Monitor patient's vital signs every home health visit Disciplines: Longterm, Physical Therapy, Occupational Therapy Monitor patient's vital [...] visit during episode of care Description: Home clerk general to measure vital signs during every home [...] Health Visit - Actions and Narratives Actions Patient admitted to hospital due to open L Tib/fib fracture following a fall from standing. Patient was attempting to exit her vehicle 06/28/19 with her walker when she fell from standing. Patient underwent surgical repair open reduction external fixation of tibia with wound vac placement 06/28/19. documented in this encounter Care Teams Receiving Teller Relationship Specialty Start Date End Date Bernardo Edwards MD [address] [place] [address] PCP - General 06/14/19 07/04/20 documented as of this encounter
--- OUTSIDE RECORDS SUMMARY | 2024-08-13 05:02 | XMS_ITS | Encounter Summary ---
Author Organization [facility] Facility Care Team Providers Care Operations Logistics Analyst Name Role Phone Bernardo Edwards MD Primary Care Provider Encounter Details Date Type Department Care Team (Latest Contact Info) Description 06/29/2019 Travel Social History Tobacco Use Types Packs/Day [...] on filedocumented in this encounter Care Teams Operations Logistics Analyst Relationship Specialty Start Date End Date Bernardo Edwards MD [address] [place] [address] PCP - General 06/14/19 07/04/20 documented as of this encounter
--- OUTSIDE RECORDS SUMMARY | 2024-08-13 05:02 | XMS_ITS | Encounter Summary ---
Author Organization [facility] Address [address] [place] [address] Phone Care Team Providers Care Residential Program Coordinator Name Role Phone Bernardo Edwards MD Primary Care Provider [phone] Reason for Visit * Auth/Cert Specialty Diagnoses / Procedures Referred By Kesha diggs Referred To Contact Referral ID Status Reason Start Date Expiration Date Visits Re quested Visits Authorized [id number] 1 1 Encounter Details Date Type Department Care Team (Late st Contact Info) Description 06/28/2019 Home Care Visit [facility] Home [facility] [address] [place] [address] [place] [address] Oliverio Matos, DARCI TELEPHONE ENCOUNTER Social History Tobacco Use Types Packs/Day Years [...] on filedocumented in this encounter Care Teams Residential Program Coordinator Relationship Specialty Start Date End Date Bernardo Edwards MD [address] [place] [address] PCP - General 06/14/19 07/04/20 documented as of this encounter
--- OUTSIDE RECORDS SUMMARY | 2024-08-13 05:02 | XMS_ITS | Encounter Summary ---
Author Organization [facility] Healthcare Address [address] [facility] [place] [address] Care Team Providers Care Dynamometer Tuner Name Role Phone Jose Manuel Gruber MD Unavailable [phone] Bernardo Edwards MD Primary Care Provider [phone] Reason for Visit * Reason Comments Fall Encounter Details Date Type Department Care Team (Latest Contact Info) Description 06/28/2019 4:47 PM HOME SALES SERVICE PROFESSIONAL - 07/06/2019 4:45 PM HOME SALES SERVICE PROFESSIONAL Hospital Encounter [facility] [address] [place] [address] Forrest Begum MD [address] [place] [address] Dean Ritter MD [address] [facility] [phone] [place] [address] Zana Franklin MD [address] [place] [address] Lo Laura DO [address] [place] [address] Type III open displaced comminuted fracture of shaft of left tibia, initial encounter (Primary Dx); Hypotension due to drugs; Acute postoperative pain; Bilateral lower extremity pain; Bipolar I disorder with anxious distress ([facility]); Intractable seizure disorder ([facility]/HCC); Moderate essential hypertension; Syncope due to sick sinus syndrome ([facility]) Discharge Disposition: Discharge to retirement facility Social History Tobacco Use Types Packs/Day Years Used Date Smoking Tobacco: Never Smokeless Tobacco: Never Tobacco Cessation:Counseling Given: No Comments:Patient does not smoke Hunger Vital Sign Answer Date Recorded Worried [...] Sign Reading Time Taken Comments Blood Pressure 163/62 07/06/2019 11:36 AM HOME SALES SERVICE PROFESSIONAL Pulse 107 07/06/2019 11:36 AM HOME SALES SERVICE PROFESSIONAL Temperature 36.7 ??C (98.1 ??F) 07/06/2019 11:[address] Respiratory Rate 20 07/06/2019 11:36 AM HOME SALES SERVICE PROFESSIONAL Oxygen Saturation 100% 07/06/2019 11:36 AM HOME SALES SERVICE PROFESSIONAL Inhaled Oxygen Concentration - - Weight 114 kg (251 lb 5.2 oz) 07/02/2019 7:20 AM HOME SALES SERVICE PROFESSIONAL Height 157.5 cm (5' 2 ) 07/02/2019 7:20 AM HOME SALES SERVICE PROFESSIONAL Body Mass Index 45.97 07/02/2019 7:20 AM HOME SALES SERVICE PROFESSIONAL documented in this encounter Discharge Diagnoses Diagnosis Unspecified fracture of shaft of left tibia, initial encounter for open fracture type IIIA, IIIB, or IIIC - UNSPECIFIED FRACTURE OF SHAFT OF LEFT TIBIA, INITIAL ENCOUNTER FOR OPEN FRACTURE TYPE IIIA, IIIB, OR Acute respiratory failure, unspecified whether with hypoxia or hypercapnia (HCC) - ACUTE RESPIRATORY FAILURE, UNSPECIFIED WHETHER WITH HYPOXIA OR HYPERCAPNIA Traumatic shock, initial encounter ([facility]) - TRAUMATIC SHOCK, INITIAL ENCOUNTER Periprosthetic fracture around internal prosthetic left knee joint, initial encounter - PERIPROSTHETIC FRACTURE AROUND INTERNAL PROSTHETIC LEFT KNEE JOINT, INITIAL ENCOUNTER Acidosis - ACIDOSIS Epilepsy, unspecified, intractable, without status epilepticus (HCC) - EPILEPSY, UNSPECIFIED, INTRACTABLE, WITHOUT STATUS EPILEPTICUS 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 1 through stage 4 chronic kidney disease, or unspecified chronic kidney disease (HCC) - HYPERTENSIVE HEART AND CHRONIC KIDNEY DISEASE WITH HEART FAILURE AND STAGE 1 THROUGH STAGE 4 CHRONIC Acute kidney failure, unspecified (HCC) - ACUTE KIDNEY FAILURE, UNSPECIFIED Acute kidney failure, unspecified Body mass index (BMI) 45.0-49.9, adult - BODY MASS INDEX (BMI) 45.0-49.9, ADULT Hyperlipidemia, unspecified - HYPERLIPIDEMIA, UNSPECIFIED Hyperkalemia - HYPERKALEMIA Hyperpotassemia Bipolar disorder, unspecified (HCC) - BIPOLAR DISORDER, UNSPECIFIED Bipolar disorder, unspecified Other acute postprocedural pain - OTHER ACUTE POSTPROCEDURAL PAIN Other chronic pain - OTHER CHRONIC PAIN Heart failure, unspecified (CMS/HCC) (HCC) - HEART FAILURE, UNSPECIFIED Heart failure, unspecified Hypotension due to drugs - HYPOTENSION DUE TO DRUGS Other iatrogenic hypotension Fatty (change of) liver, not elsewhere classified - FATTY (CHANGE OF) LIVER, NOT ELSEWHERE CLASSIFIED Chronic kidney disease, unspecified - CHRONIC KIDNEY DISEASE, UNSPECIFIED Displaced fracture of medial malleolus of right tibia, initial encounter for closed fracture - DISPLACED FRACTURE OF MEDIAL MALLEOLUS OF RIGHT TIBIA, INITIAL ENCOUNTER FOR CLOSED FRACTURE Adverse effect of unspecified anesthetic, initial encounter - ADVERSE EFFECT OF UNSPECIFIED ANESTHETIC, INITIAL ENCOUNTER Other fall from one level to another, initial encounter - OTHER FALL FROM ONE LEVEL TO ANOTHER, INITIAL ENCOUNTER Activity, other specified - ACTIVITY, OTHER SPECIFIED Unspecified external cause status - UNSPECIFIED EXTERNAL CAUSE STATUS Unspecified place in unspecified non-institutional (private) residence as the place of occurrence of the external cause - UNSPECIFIED PLACE IN UNSPECIFIED NON-INSTITUTIONAL (PRIVATE) RESIDENCE THE PLACE OF OCCURRENCE OF Unspecified place in hospital as the place of occurrence of the external cause - UNSPECIFIED PLACE IN HOSPITAL THE PLACE OF OCCURRENCE OF THE EXTERNAL CAUSE Other specified events, undetermined intent, initial encounter - OTHER SPECIFIED EVENTS, UNDETERMINED INTENT, INITIAL ENCOUNTER Allergy status to sulfonamides status - ALLERGY STATUS TO SULFONAMIDES STATUS Allergy status to other drugs, medicaments and biological substances status - ALLERGY STATUS TO OTHER DRUGS, MEDICAMENTS AND BIOLOGICAL SUBSTANCES STATUS Radiographic dye allergy status - RADIOGRAPHIC DYE ALLERGY STATUS Latex allergy status - LATEX ALLERGY STATUS Overweight - OVERWEIGHT Allergy to seafood - ALLERGY TO SEAFOOD correction (current) use of non-steroidal anti-inflammatories (nsaid) - SHELTER (CURRENT) USE OF NON-STEROIDAL ANTI-INFLAMMATORIES (NSAID) computer terminal operator (current) use of inhaled steroids - SHELTER (CURRENT) USE OF INHALED STEROIDS Hormone replacement therapy - HORMONE REPLACEMENT THERAPY Acquired absence of both cervix and uterus - ACQUIRED ABSENCE OF BOTH CERVIX AND UTERUS Dependence on supplemental oxygen - DEPENDENCE ON SUPPLEMENTAL OXYGEN documented in this encounter Discharge Summaries * Roya Perez NP - 07/06/2019 1:47 PM CST [facility] Trauma Surgery Inpatient Discharge Summary This is a clinical resume for patient Celestina Ewing for attending Dean Ritter MD Admission Date: 06/28/2019 Admitting Provider: Dean Ritter MD Discharge Date: 07/06/2019 Hospitalization: Total duration of encounter: 8 days Team: Trauma Surgery Primary Care Provider: Hernando Velasquez MD Discharge Diagnosis(es): Open displaced comminuted fracture of shaft of left tibia, type IIIA, IIIB, or IIIC Hospital Course: Clinical Course: improved History of Present Illness: 68 y.o. F fall from standing w/ open farzana-prosthetic tib/fib fx, R medial malleolus fx w/ hypotension and AMS upon arrival to ED, intubated in bay, MTP activated, CThead/c-spine/c/a/p CTA showed isolated LLE injury w/ no sign of vascular injury. K 6.9, Cr 1.5. She received gentamicin/ancef, TDap. She was taken to the operating room in an urgent manor for irrigation and debridement and temporary fixation of L T3 open periprosthetic tib/fib fracture. She remained intubated and was transferred to the SICU on Manfred and insulin gtt postoperatively for further management. She returned to the operating room on 06/30 for repeat irrigation and debridement and definitive fixation for L tib/fib fracture and ORIF R medial malleolus fracture. She was extubated on 07/01 and transferred to the floor that evening. Active Issues Requiring Follow Up: #Open left tibia/fibula fractures -Imaging: open comminuted periprosthetic fracture of the proximal left tibia, open comminuted fracture of the proximal left fibula -Ortho was consulted -06/28 OR with Ortho for left tibia irrigation and debridement with placement of a temporary lockingplate and wound VAC placement. -06/30 OR with Ortho for excisional debridement of left open fracture site including excision of skin, subcutaneous tissue, and fascia, ORIF of left tibial shaft fracture, complex layered wound closure of traumatic laceration measuring 40 cm, placement of incisional wound vac -07/05 incisional wound vac removed intact and steri strips and dry dressing placed. Daily dressingchanges provided for wound care -The patient was kept NWB 6 weeks, in HKB locked in extension - Patient was noted to be at risk of wound irritation by braced due to positioning of the distal strap. She will need to have abd padding under the strap for skin protection ?? #Right medial malleolus fracture -Imaging: mildly displaced intra-articular right medial malleolus fracture -Ortho was consulted -06/30 OR with Ortho for ORIF right medial malleolus fracture -The patient was kept NWB to the right leg for 6 weeks -PT and OT were consulted and recommended placement ?? # Acute pain due to trauma -Pain service was consulted and recommended multi modal management -Tylenol, Baclofen, Flexeril, and Gabapentin scheduled -Oxycodone 10 mg Q4H PRN -Bowel regimen was provided ?? #LUAN: -The patient's Cr was 1.0 on arrival -Cr ranged from 0.95-1.5 -Judicious fluid resuscitation was provided and the patient's Cr and UO responded -Cr was 0.96 prior to discharge Operative Procedures Performed: IRRIGATION AND DEBRIDEMENT - TIBIA (Left Leg Lower) OPEN REDUCTION INTERNAL FIXATION TIBIA - PROXIMAL - SYNTHES (Left Leg Lower) OPEN REDUCTION INTERNAL FIXATION - ANKLE (Right Ankle) Irrigation And Debridement - Tibia - Left and Open Reduction Internal Fixation - Tibia - Left Consultations: orthopedic surgery Discharge Physical Exam: Discharge Condition: fair Pulse: 107 Resp: 20 BP: 163/62 Temp: 36.7 ??C (98.1 ??F) Weight: 114 kg (251 lb 5.2 oz) GENERAL- no acute distress, comfortable NEURO- alert and oriented, normal balance and gait PSYCH- Mood and affect appropriate HEENT- Pupils equal, EOMs grossly normal, mucous membranes moist LYMPHATICS- no palpable lymphadenopathy CARDIO- regular rate and rhythm RESP- nonlabored respirations GI- abdomen soft, nontender, nondistended MSK- grossly normal range of motion, HKB to left leg locked in extension EXTREMITIES- extremities warm and dry, mild BLE swelling, HKB to left leg, incision dressings intact clean, dry, intact Diet: Diet Instructions Adult Discharge Diet Diet Type: Return to previous diet Regular diet Discharge Disposition: Discharge to home, home health skilled care Code Status at Discharge: Full Activity: Activity Instructions Weight bearing status Hinged knee brace locked in extension for LLE Restrictions RUE: Weight Bearing as Tolerated Restrictions LUE: Weight Bearing as Tolerated Restrictions RLE: Non-Weight Bearing Restrictions LLE: Non-Weight Bearing activity as tolerated Right Upper ExtremityWeight bearing as tolerated Left Upper ExtremityWeight bearing as tolerated Right Lower ExtremityNon-weight bearing Left Lower ExtremityNon-weight bearing Wound Care: Carries out hygiene routine on a regular basis and Requires assistance Discharge Medications: Your medication list START taking these medications acetaminophen 500 mg capsule Take 2 capsules (1,000 mg total) by mouth every 6 (six) hours enoxaparin 40 mg/0.4 mL syringe Commonly known as: LOVENOX Inject 0.4 mL (40 mg total) under the skin daily magnesium citrate solution Take 296 mL by mouth daily as needed (constipation) oxyCODONE 10 mg tablet Commonly known as: ROXICODONE Take 1 tablet (10 mg total) by mouth every 4 (four) hours as needed for pain senna 8.6 mg tablet Commonly known as: SENOKOT Take 1 tablet by mouth 2 (two) times a day CHANGE how you take these medications albuterol HFA 90 mcg/actuation inhaler Commonly known as: PROVENTIL HFA,VENTOLIN HFA,PROAIR HFA What changed: Another medication with the same name was removed. Continue taking this medication, and follow the directions you see here. atorvastatin 10 mg tablet Commonly known as: LIPITOR Take 1 tablet (10 mg total) by mouth nightly What changed: how much to take when to take this baclofen 5 mg tablet Commonly known as: LIORESAL Take 0.5 tablets (2.5 mg total) by mouth 3 (three) times a day with meals What changed: medication strength how much to take when to take this reasons to take this cyclobenzaprine 10 mg tablet Commonly known as: FLEXERIL Take 1 tablet (10 mg total) by mouth 3 (three) times a day What changed: medication strength how much to take when to take this reasons to take this gabapentin 400 mg capsule Commonly known as: NEURONTIN Take 1 capsule (400 mg total) by mouth every 8 (eight) hours What changed: when to take this additional instructions metoprolol 25 mg tablet Commonly known as: LOPRESSOR Take 1 tablet (25 mg total) by mouth every 6 (six) hours What changed: medication strength how much to take when to take this CONTINUE taking these medications cetirizine 10 mg tablet Commonly known as: ZyrTEC cholecalciferol 400 unit capsule Commonly known as: VITAMIN D-3 cloNIDine 0.2 mg tablet Commonly known as: CATAPRES docusate sodium 100 mg capsule Commonly known as: COLACE estradiol 0.5 mg tablet Commonly known as: ESTRACE famciclovir 250 mg tablet Commonly known as: FAMVIR fluticasone propionate 110 mcg/actuation inhaler Commonly known as: FLOVENT HFA fluticasone propionate 50 mcg/actuation nasal spray Commonly known as: FLONASE furosemide 40 mg tablet Commonly known as: LASIX hydrALAZINE 50 mg tablet Commonly known as: APRESOLINE lidocaine 5 % Commonly known as: LIDODERM MIRALAX 17 gram/dose powder Generic drug: polyethylene glycol NORVASC 10 mg tablet Generic drug: amLODIPine olmesartan 40 mg tablet Commonly known as: BENICAR pantoprazole DR 40 mg EC tablet Commonly known as: PROTONIX primidone 50 mg tablet Commonly known as: MYSOLINE triamcinolone 0.1 % cream Commonly known as: KENALOG vitamin E 400 unit capsule Commonly known as: AQUASOL E STOP taking these medications AMBIEN 10 mg tablet Generic drug: zolpidem BENADRYL 25 mg capsule Generic drug: diphenhydrAMINE dicyclomine 10 mg capsule Commonly known as: BENTYL HYDROcodone-acetaminophen 7.5-325 mg per tablet Commonly known as: NORCO meloxicam 15 mg tablet Commonly known as: MOBIC ondansetron 4 mg tablet Commonly known as: ZOFRAN VITAMIN E ORAL zolpidem 10 mg tablet Commonly known as: AMBIEN Discharge Instructions: Other Instructions Call provider for: increased temperature -Temperature greater than 101 degrees F Call provider for: increased temperature -Temperature greater than 101 degrees F Call provider for: nausea, vomiting, diarrhea -If you have persistent nausea, vomiting or diarrhea that does not stop Call provider for: redness, tenderness, or signs of infection (pain, swelling, redness, odor or green/yellow discharge around incision site) Call provider for: any other concerns or questions Call provider for: any other concerns or questions Please contact the Trauma Department if any problems develop, please call the Trauma phone [phone] during the week or after hours, and ask to speak to the Trauma [place] or resident color separation photographer. Please be aware all medications including narcotic pain medications cannot be called in over the phone. To refill, an appointment will need to be made with the appropriate medical or surgical service. You mayfollow up with your primary care physician for long-term management of medications and long-term medical conditions. For an appointment with the Trauma Clinic, Please call [phone] during normal business hours. Care Instructions: Daily dry dressing change to LLE Care Instructions: Incisions -Keep incisions clean and dry Care Instructions: No tub baths -No tub baths, whirlpools or swimming until your provider says it's ok. Care order/instruction - Braces Keep in hinge knee brace locked in extension, may take off to clean and dry, keep knee straight when out of brace Slide Board Size: 36 in. The [id number] evaluation was performed on: 07/05/2019 DME services provided by: [facility] Special Instructions: Continue following PT/OT instructions You may not bear weight on your lower extremities until cleared to do so by orthopedic surgery You should be out of bed at least three times daily with your wheelchair Wheelchair--Manual Height: 157.5 cm (5' 2 ) Weight: 114 kg (251 lb 5.2 oz) Configuration: Bariatric (for pts greater than 250 lbs) Must meet the [facility] manual wheelchair qualifications AND patient weighs more than 250 lbs or patient has severe spasticity?: Yes Accessories: Elevating Leg Rest Comment - Removable arm rest Other (comment) Size (hip width): 24 Patient's mobility limitation significantly impairs his/her ability to participate in one or more mobility-related activities of daily living (MRADLs) such as toileting, feeding, dressing, grooming, and bathing in customary locations in the home?: Yes Patient???s mobility limitation cannot be sufficiently resolved by the use of an appropriately fitted cane or walker?: Yes Patient???s home provides adequate access between rooms, maneuvering space, and surfaces for use ofthe manual wheelchair that is provided?: Yes Use of a manual wheelchair will significantly improve the patient???s ability to participate in MRADLs and the patient will use it on a regular basis in the home?: Yes The [id number] evaluation was performed on: 07/05/2019 DME services provided by: [facility] Call your Surgeon???s office from 8:00am-3:30pm at for the following: * You have a fever of more than 101.5 degrees. * You have nausea, vomiting or diarrhea that does not stop. * You have pus or bad smelling drainage from your wound. * The pain in your stomach is very bad or gets a lot worse. * You feel dizzy, very tired or like you may faint. * You have hard time breathing. * You have any other concerns or questions Follow up Contact Information for Follow-ups Jose Manuel Gruber MD Specialty: Orthopedic Surgery Relationship: Fellow [address] [place] [address] /A [facility] [address] Next Steps: Follow up Instructions: Please attend your scheduled follow up appointment with orthopedic surgery. Questions: Instructions for follow-up (appointment date and time): Please attend your scheduled follow up appointment with orthopedic surgery. Hernando Velasquez MD Specialty: Internal Medicine [address] [facility] [address] Next Steps: Follow up Instructions: Please continue to follow with your primary care provider for general health maintenance and medication refills. Questions: Instructions for follow-up (appointment date and time): Please continue to follow with your primarycare provider for general health maintenance and medication refills. [facility] Specialty: Wound Care [address] [facility] [address] [address] [facility] [address] Next Steps: Follow up Instructions: You may call to schedule a follow up with Trauma Services on an as needed basis. [phone] to schedule. Questions: Instructions for follow-up (appointment date and time): You may call to schedule a follow up with Trauma Services on an as needed basis. Call [phone] to schedule. Future Appointments Date Time Provider Department Center 07/21/2019 1:35 PM Jose Manuel Gruber MD [facility] I spent 45 minutes completing this hospital discharge. Roya Perez NP 07/06/19 CC: Hernando Velasquez MD Cosigned by Madhav Long DO at 07/06/2019 10:00 PM HOME SALES SERVICE PROFESSIONAL SALES SERVICE PROFESSIONAL SALES SERVICE PROFESSIONAL Associated attestation - Madhav Long DO - 07/06/2019 10:00 PM HOME SALES SERVICE PROFESSIONAL I have seen and examined the patient on 07/06/19 in conjunction with the non- physician provider. History: Awaiting rehab placement Physical Exam: No acute distress, nasal cannula in place Normal work of breathing Abdomen soft nontender Bilateral lower extremity dressings dry, HKB left lower extremity Lab/Radiology/Diagnostics Review: Reviewed Assessment/Plan Open left tibia/fibula fractures: Status post repair, nonweightbearing x6 weeks, HKB locked in extension, PT/OT Right medial malleolus fracture: Status post ORIF, nonweightbearing x6 weeks, PT/OT LUAN: Resolved Dispo rehab today documented in this encounter Discharge Instructions * Attachments The following attachments cannot be sent through Care Everywhere. * Chronic Hypertension (Discharge Care) (Bulgarian) * ORIF of a Leg Fracture (Discharge Care) (Bulgarian) * ORIF of an Ankle Fracture (Discharge Care) (Bulgarian) * Hinged Knee Brace (Discharge Care) (Bulgarian) * Acute Wound Care (Discharge Care) (Bulgarian) * How to Transfer a Person Safely (Discharge Care) (Bulgarian) * Wheel Chair Transfers (Discharge Care) (Bulgarian) documented in this encounter Medications at Time [...] mouth daily. Indications: deficiency of vitamin E enoxaparin (LOVENOX) 40 mg/0.4 mL syringeIndication s:Deep Vein Thrombosis Prevention Inject 0.4 mL (40 mg total) under the skin daily 16.8 mL 07/04/2019 0 acetaminophen 500 mg capsule Take 2 capsules (1,000 mg total) by mouth every 6 (six) hours 1 capsule 07/04/2019 0 albuterol HFA (PROVENTIL HFA,VENTOLIN HFA,PROAIR HFA) 90 mcg/actuation inhalerIndication s:Acute Asthma Attack Inhale 2 puffs every 4 (four) hours as needed for shortness of breath. Indications: Asthma Attack 3 cetirizine (ZyrTEC) 10 mg tabletIndications :Seasonal Allergic [...] 06/14/2019 0 documented as of this encounter Ordered Prescriptions Prescription Sig Dispense Quantity Refills Last Filled Start Date End Date metoprolol (LOPRESSOR) 25 mg tablet Take 1 tablet (25 mg total) by mouth every 6 (six) hours 1 tablet 07/04/2019 baclofen (LIORESAL) 5 mg tablet Take 0.5 tablets (2.5 mg total) by mouth 3 (three) times a day with meals 1 tablet 07/04/2019 atorvastatin (LIPITOR) 10 mg tablet Take 1 tablet (10 mg total) by mouth nightly 1 tablet 07/04/2019 oxyCODONE (ROXICODONE) 10 mg tabletIndications: Pain Take 1 tablet (10 mg total) by mouth every 4 (four) hours as needed for pain 20 tablet 07/06/2019 0 oxyCODONE (ROXICODONE) 10 mg tabletIndications: Pain Take 1 tablet (10 mg total) by mouth every 4 (four) hours as needed for pain 20 tablet 07/04/2019 9 magnesium citrate solution Take 296 mL by mouth daily as needed (constipation) 1 mL 07/04/2019 0 senna (SENOKOT) 8.6 mg tablet Take 1 tablet by mouth 2 (two) times a day 1 tablet 07/04/2019 0 oxyCODONE (ROXICODONE) 10 mg tabletIndications: Pain Take 1 tablet (10 mg total) by mouth every 4 (four) hours as needed for pain 20 tablet 07/04/2019 9 enoxaparin (LOVENOX) 40 mg/0.4 mL syringeIndications :Deep Vein Thrombosis Prevention Inject 0.4 mL (40 mg total) under the skin daily 16.8 mL 07/04/2019 0 acetaminophen 500 mg capsule Take 2 capsules (1,000 mg total) by mouth every 6 (six) hours 1 capsule 07/04/2019 0 gabapentin (NEURONTIN) 400 mg capsule Take 1 capsule (400 mg total) by mouth every 8 (eight) hours 1 capsule 07/04/2019 2 cyclobenzaprine (FLEXERIL) 10 mg tablet Take 1 tablet (10 mg total) by mouth 3 (three) times a day 1 tablet 07/04/2019 0 documented in this encounter Discharge Disposition Disposition Code Departure Means Destination [facility] documented in this encounter Progress Notes * Mily Rivera MSW - 07/06/2019 2:56 PM CST 07/06/19 5292 Discharge Summary Chart reviewed For Medical Necessity Does patient have a planned readmission to hospital planned? No Discharge Disposition SNF, Medicaid, Short Term Skilled Specify Facility [facility] Contact Number [phone] Discharge Records Chart Copied Equipment/Provider Needs No Home Needs Identified Discharge Additional Assistance Does the patient need discharge transport arranged? Yes Has discharge transport been arranged? Yes Details of Transportation [facility] ([phone]) Trip#[id number] What day is the transport expected? 07/06/19 What time is the transport expected? 1400 [...] of care provider (see Follow Up Providers) Pt is medically stable for discharge at this time. Pt has been accepted by: [facility] at this time of discharge. SW spoke with [facility] and patient in regards to discharge and discharge planning and all are agreeable to discharge. Pt's chart has been copied. Orders faxed to: [phone]. Report: [phone]. Patient will admit under [place] benefits. Mode of transport has been discussed with the patient/family, doctors, nurses, and [facility] ([phone])Trip#[id number] and all are agreeable to plan and understand their responsibilities to ensure the safetransfer. Patient/family informed that while medical team will do everything possible for insuranceto pay for the ambulance there is a chance that insurance will not pay, as insurance criteria for ambulances are often stricter than the medical team. Social work informed patient/family that even ifinsurance does pay, it may not cover the full cost of the trip as insurance is now only covering the cost to nearest available facility. Social work informed patient/family that they will be responsible for the remainder of the bill. Patient/family voiced understanding. Certificate of Medical Necessity completed due to NMB bilateral lowers and traveling with 2 L of O2. Mily Rivera RN FIRST ASSISTANT [phone] SALES SERVICE PROFESSIONAL * Josiane Arreola, RD - 07/05/2019 4:09 PM CST Nutrition Screen Note Pt. Screened for nutritional assessment secondary to LOS. Pt s/p repeat I&D, revision ORIF L T3open PP tib / fib shaft fx, R medial mal ankle fx History reviewed. No pertinent past medical history. Past Surgical History: Procedure Laterality Date ??? [...] Right 08/2009 ??? TOE FUSION Left 08/1994 Anthropometrics Weight: 114 kg (251 lb 5.2 oz) Admission Weight : 100 kg Weight Change: 0.00 kg (0.00 lbs) IBW/kg (Calculated) : 49.9 kg Height: 157.5 cm (5' 2 ) Weight in (lb) to have BMI = 25: 136.4 BMI (Calculated): 46 Dietary Orders (From admission, onward) Start Ordered 07/05/19 1352 Oral Nutrition Supplements Select Supplement: [place] (with breakfast and dinner) 2 times daily Question: Select Supplement: Answer: [place] Comment: with breakfast and dinner 07/05/19 1351 07/02/19 0753 Adult Diet Regular Diet effective now Question: ([facility]) Diet type Answer: Regular 07/02/19 0753 Assessment / Impression: Pt reports she has been consuming 50% of meals, no weight loss, usual weight of 242#, now 251# on admit. Pt reports she has gastroparesis so she has nausea sometimes. Pt reports fish allergy, entered in system. Pt had wound vac, now down, [place] ordered. No weight loss. +BM a few days ago. Encouraged PO intake. RD following. Josiane Elba, MS RD LD #[phone] SALES SERVICE PROFESSIONAL * Migel Merchant MD - 07/05/2019 7:48 AM CST Images from the original note were not included. Orthopaedic Trauma Service Daily Progress Note Subjective 68 y.o. female now POD5 s/p repeat I&D, revision ORIF L T3 open PP tib / fib shaft fx, R medialmal ankle fx Dressing and vac down on rounds this AM. Wound well appearing. New steri strips and bulky dressing applied. At risk of wound irritation from HKB, needs daily dry dressings. Pain well controlled. Cleared for SNF d/c. No new labs. Has been tachy for days, denies CP/SOB/Calf pain. Current Facility-Administered Medications Medication Dose Route Frequency Last Rate Last Dose ??? acetaminophen (TYLENOL) tablet 1,000 mg 1,000 mg oral Q6H KELIN 1,000 mg at 07/05/19 0609 ??? albuterol HFA (PROVENTIL HFA,VENTOLIN HFA,PROAIR HFA) 90 mcg/actuation inhaler 2 puff 2 puff inhalation Q6H PRN (RT) ??? atorvastatin (LIPITOR) tablet 10 mg 10 mg oral Nightly 10 mg at 07/04/192109 ??? baclofen (LIORESAL) tablet 2.5 mg 2.5 mg oral TID with meals 2.5 mg at 07/04/19 1701 ??? calcium carbonate (TUMS) chewable tablet 1,000 mg 400 mg of elemental calcium oral Daily 1,000 mg at 07/04/19 0830 ??? cyclobenzaprine (FLEXERIL) tablet 10 mg 10 mg oral TID 10 mg at 07/04/192108 ??? docusate sodium (DOK) tablet 100 mg 100 mg oral BID 100 mg at 07/04/192108 ??? enoxaparin (LOVENOX) syringe 40 mg 40 mg subcutaneous Q12H KELIN 40 mg at 07/04/192110 ??? furosemide (LASIX) tablet 40 mg 40 mg oral BID DIURETIC 40 mg at 07/04/19 1659 ??? gabapentin (NEURONTIN) capsule 400 mg 400 mg oral Q8H 400 mg at 07/05/19 0052 ??? metoprolol (LOPRESSOR) tablet 25 mg 25 mg oral Q6H KELIN 25 mg at 07/05/19 0609 ??? oxyCODONE (ROXICODONE) tablet 10 mg 10 mg oral Q4H PRN 10 mg at 07/05/19 0609 ??? pantoprazole DR (PROTONIX) extended release tablet 40 mg 40 mg oral Daily 40 mg at 07/04/19 0830 ??? polyethylene glycol (MIRALAX) packet 17 g 17 g oral Daily 17 g at 07/01/19 0814 ??? primidone (MYSOLINE) tablet 50 mg 50 mg oral BID 50 mg at 07/04/192108 ??? senna (SENOKOT) tablet 1 tablet 1 tablet oral BID 1 tablet at 07/04/192108 Objective Vitals: 24hr Min/Max: Temp Min: 37 ??C (98.6 ??F) Max: 37.2 ??C (99 ??F) Pulse Min: 101 Max: 117 BP Min: 140/66 Max: 160/67 Resp Min: 18 Max: 20 SpO2 Min: 95 % Max: 100 % I/O last 2 completed shifts: In: - Out: 1600 [Urine:1600] No intake/output data recorded. Physical Exam: Gen: NAD Neuro: A&Ox3 Resp: NLB CV: regular rate by palpation of peripheral pulses MSK: In no acute distress. Alert and oriented ?? 3. Normal respirations, no dyspnea with speaking. RUE: No obvious deformity, skin intact, no ecchymosis No tenderness to palpation, able to range shoulder/elbow/wrist w/o pain Motor and sensation intact to SILT M/U/R/A nerve distributions 2+radial pulse Fingers WWP, BCR <2 seconds LUE No obvious deformity, skin intact, no ecchymosis No tenderness to palpation, able to range shoulder/elbow/wrist w/o pain Motor and sensation intact to SILT M/U/R/A nerve distributions 2+radial pulse Fingers WWP, BCR <2 seconds RLE: splint cdi, mild decr spn (baseline neuropathy). wiggles toes LLE HKB in place Ivac down Wound well appearing, no erythema, no dehisence New steris applied Decreased sensation due to neuropathy Fires EHL/FHL Labs: Hematology Lab History Some values may be hidden. Unless noted otherwise, only the newest values recorded on each date aredisplayed. Labs - Hematology Latest Ref Range 06/28/19 06/29/19 06/30/19 07/01/19 WBC 3.8 - 9.9 K/cumm 20.3 (A) 14.7 (A) 16.5 (A) 17.4 (A) Total Hb, POC 11.9 - 15.5 g/dL 7.9 (A) 6.5 (A) 8.2 (A) 7.6 (A) Hct 35.6 - 45.5 % 26.4 (A) 20.2 (A) 25.5 (A) 23.6 (A) Plt 150 - 400 K/cumm 188 173 166 174 Neutrophil abs 1.7 - 6.5 K/cumm 15.4 (A) 8.8 (A) 8.8 (A) Some values recorded on this date have been omitted. Some abnormal values recorded on this date have been omitted. (A) Abnormal value Chem/LFT Lab History Some values may be hidden. Unless noted otherwise, only the newest values recorded on each date aredisplayed. Labs-Chem/LFT Latest Ref Range 06/28/19 06/29/19 06/30/19 07/01/19 Sodium 135 - 145 mmol/L 141 (C) 139 139 135 Potassium Lvl BUN Creatinine 0.60 - 1.10 mg/dL 1.50 (A) (C) 1.14 (A) 0.95 0.96 Bilirubin, total 0.1 - 1.2 mg/dL 0.2 (C) AST 10 - 45 Units/L 43 (C) ALT 7 - 45 Units/L 41 (C) CrCl- Actual Body Weight (Cockcroft-Gault) 62.4 87.4 104.8 103.7 Some values recorded on this date have been omitted. Some abnormal values recorded on this date have been omitted. (A) Abnormal value (C) Corrected value Comments are available for some flowsheets but are not being displayed. Assessment/Plan Celestina Ewing is a 68 y.o. female who is s/p I&D ORIF L proximal tibia periprosthetic fx. Now POD 5 w/ iVAC down and wound well appearing. Now cleared for d/c from ortho perspective. Maintain steris until f/u. Patient at risk of wound irritation by braced due to positioning of distal strap - NEEDS: daily dry dressing changes w/ ABD and NURY over distal wound to protect from irritation - Nursing to do dressing changes - please confer recommendations to facility at discharge PLAN: 1. NWB BLE 1. LLE in HKB locked in extension 2. RLE in SLS 2. DVT ppx w/ SCDs, lovenox 40 qpm 3. PT/OT 4. OOB at least TID Okay for d/c Ortho Signing off Call with questions Migel Merchant MD Department of Orthopaedic Surgery [facility] in [place] If questions arise overnight, the OTS team can be reached at: [phone] (Floor Resident ) [phone] (Consult Resident) SALES SERVICE PROFESSIONAL * Leroy Reddy MD - 07/05/2019 6:39 AM CST [facility] Trauma Surgery Daily Progress Subjective Patient is a 68 y.o. female admitted on 06/28/2019 4:47 PM with chief complaint of Chief Complaint Patient presents with ??? Fall Interval History: NAEON. Pain better controlled Good tolerance to oral diet Passing gas, will get mag citrate today Delarosa removed LLE; Incisional wound vac removed RLE; splint in place Objective Physical Exam: GENERAL: WDWN NEURO: A&Ox3 PSYCH: congruent mood and affect HEENT: normocephalic, atraumatic, neck supple, trachea midline RESP:Nonlabored breathing, no audible wheezing. CARDIO: RRR ABDOMEN: Soft, ND, no TTP LLE; Motor and sensation intact RLE; splint in place, Motor and sensation intact Active and Removed Drain / Nasogastric/Orogastric tube / Rectal tube / Gastrostomy/Enterostomy / Chest tube NG/OG Tube Orogastric Left mouth 1 day Urethral Catheter Temperature probe;Double-lumen 16 Fr. less than 1 day Vital signs for last 24 hours: Temp: [37 ??C (98.6 ??F)-37.2 ??C (99 ??F)] 37 ??C (98.6 ??F) Pulse: [101-117] 104 BP: (140-160)/(49-74) 140/66 Resp: [18-20] 20 SpO2: [95 %-100 %] 98 % Hemodynamics: MAP (mmHg): [73-95] 83 Pulmonary Support: O2 Therapy: Supplemental oxygen O2 Del Method: Nasal cannula FiO2 (%): 40 % O2 Flow Rate (L/min): 2 L/min Intake/Output: I/O this shift: In: - Out: 500 [Urine:500] Lab/Radiology/Diagnostic Review: Recent Results (from the past 72 hour(s)) POCT glucose Collection Time: 07/02/19 7:35 AM Result Value Ref Range Glucose, POC 155 70 - 199 mg/dL Xr Knee Left 1 Or 2 Views Result Date: 06/28/2019 1. Open comminuted periprosthetic fracture of the proximal left tibia 2. Open comminuted fracture of the proximal left fibula 3. Mildly displaced intra- articular right medial malleolus fracture 4. Noacute pelvic fracture. Dictated by: Luh Moffett M.D. Xr Tibia Fibula Left 2 Views Result Date: 06/28/2019 1. Open comminuted periprosthetic fracture of the proximal left tibia 2. Open comminuted fracture of the proximal left fibula 3. Mildly displaced intra- articular right medial malleolus fracture 4. Noacute pelvic fracture. Dictated by: Luh Moffett M.D. Xr Tibia Fibula Right 2 Views Result Date: 06/28/2019 1. Open comminuted periprosthetic fracture of the proximal left tibia 2. Open comminuted fracture of the proximal left fibula 3. Mildly displaced intra- articular right medial malleolus fracture 4. Noacute pelvic fracture. Dictated by: Luh Moffett M.D. Xr Ankle Left 3 Or More Views Result Date: 06/28/2019 1. Open comminuted periprosthetic fracture of the proximal left tibia 2. Open comminuted fracture of the proximal left fibula 3. Mildly displaced intra- articular right medial malleolus fracture 4. Noacute pelvic fracture. Dictated by: Luh Moffett M.D. Xr Ankle Right 3 Or More Views Result Date: 06/28/2019 1. Open comminuted periprosthetic fracture of the proximal left tibia 2. Open comminuted fracture of the proximal left fibula 3. Mildly displaced intra- articular right medial malleolus fracture 4. Noacute pelvic fracture. Dictated by: Luh Moffett M.D. Cta Lower Extremity Left Result Date: 06/29/2019 1. Left lower extremity: Three-vessel runoff. 2. Non-opacification of a left peroneal artery proximal segment with distal reconstitution is favored to represent focal vasospasm/stenosis secondary to extrinsic arterial compression from the surrounding muscular edema. No evidence of arterial injury. 3. Markedly comminuted, open, angulated, and displaced periprosthetic fracture of the left proximal tibia. 4. Comminuted, angulated, and displaced fracture of the left proximal fibula. 5. Marked muscular intensity adjacent edema of the distal left lower extremity. Dictated by: Mikhail Beyer Xr Chest 1 Vw Portable Result Date: 06/28/2019 1st is made to same day chest CT. There is an endotracheal tube which terminates 1.3 cm above the jesús. A gastric tube projects below the left hemidiaphragm, extending at least to the body of the stomach. Lung volumes are decreased with bibasilar atelectasis. There are right upper lung predominant opacities correlate with areas of groundglass opacity seen on CT and may represent asymmetric pulmonary edema. There is no pleural effusion or pneumothorax. Cardiomediastinal contours are within normal limits accounting for portable technique and low lung volumes. Dictated by: Luh Moffett M.D. Xr Femur Left 2 Or More Views Result Date: 06/28/2019 1. Open comminuted periprosthetic fracture of the proximal left tibia 2. Open comminuted fracture of the proximal left fibula 3. Mildly displaced intra- articular right medial malleolus fracture 4. Noacute pelvic fracture. Dictated by: Luh Moffett M.D. Ct Chest Abdomen Pelvis W Contrast Result Date: 06/28/2019 1. No acute intra-abdominal traumatic injury. 2. Scattered, biapical groundglass opacities with septal line thickening may represent mild pulmonary edema. 3. Mild bibasilar atelectasis. Dictated by: Mikhail Beyer Xr Pelvis 1 Or 2 Views Result Date: 06/28/2019 1. Open comminuted periprosthetic fracture of the proximal left tibia 2. Open comminuted fracture of the proximal left fibula 3. Mildly displaced intra- articular right medial malleolus fracture 4. Noacute pelvic fracture. Dictated by: Luh Moffett M.D. Ct Head And Cervical Spine Wo Contrast Result Date: 06/29/2019 1. No acute intracranial abnormality, such as hemorrhage. 2. No evidence of acute fracture in the cervical spine. 3. Recommend follow up of the Incidental enlarged pituitary with MRI pituitary protocol if clinically indicated. Dictated by: Adithya Murphy M.D. Trauma Surgical plan: #Acute respiratory failure -resolved #L proximal tibia periprosthetic fracture -s/p I&D and revision ORIF 06/30 -NWB 6 weeks, in HKB locked in extension - Patient at risk of wound irritation by braced due to positioning of distal strap -NEEDS: daily dry dressing changes w/ ABD and NURY over distal wound to protect from irritation - Nursing to do dressing changes #R medial malleolus fracture -s/p ORIF 06/30 in [facility], NWB 6 weeks # Acute pain due to trauma - Pain service s/o - Baclofen 2.5mg TID - Flexeril - Gabapentin #LUAN: - Creatinine improving, 0.96 on 07/01 no new labs - DVT px; Lovenox - Home meds; Lasix 40mg BID at home - Dispo: pending insurance auth Leroy Reddy MD Department of Orthopaedic Surgery PGY1 [facility] in [facility] SALES SERVICE PROFESSIONAL * Leroy Reddy MD - 07/04/2019 10:07 AM CST [facility] Trauma Surgery Daily Progress Subjective Patient is a 68 y.o. female admitted on 06/28/2019 4:47 PM with chief complaint of Chief Complaint Patient presents with ??? Fall Interval History: NAEON. Pain better controlled Good tolerance to oral diet Passing gas, bowel movement yesterday Delarosa removed LLE; Incisional wound vac in place, holding suction needs to be removed by ortho before DC RLE; splint in place Objective Physical Exam: GENERAL: WDWN NEURO: A&Ox3 PSYCH: congruent mood and affect HEENT: normocephalic, atraumatic, neck supple, trachea midline RESP:Nonlabored breathing, no audible wheezing. CARDIO: RRR ABDOMEN: Soft, ND, no TTP LLE; Incisional wound vac in place, holding suction. Motor and sensation intact RLE; splint in place, Motor and sensation intact Active and Removed Drain / Nasogastric/Orogastric tube / Rectal tube / Gastrostomy/Enterostomy / Chest tube NG/OG Tube Orogastric Left mouth 1 day Urethral Catheter Temperature probe;Double-lumen 16 Fr. less than 1 day Vital signs for last 24 hours: Temp: [36.8 ??C (98.2 ??F)-37.1 ??C (98.8 ??F)] 37.1 ??C (98.8 ??F) Pulse: [101-106] 101 BP: (126-154)/(44-74) 146/74 Resp: [18-24] 20 SpO2: [95 %-100 %] 95 % Hemodynamics: MAP (mmHg): [64-95] 95 Pulmonary Support: O2 Therapy: Supplemental oxygen O2 Del Method: Nasal cannula FiO2 (%): 40 % O2 Flow Rate (L/min): 2 L/min Intake/Output: No intake/output data recorded. Lab/Radiology/Diagnostic Review: Recent Results (from the past 72 hour(s)) Infection Prevention MRSA Only (Staphylococcus aureus) Culture Nasal Collection Time: 07/01/19 2:19 PM Result Value Ref Range Report Final Report: Negative CBC without differential Collection Time: 07/01/19 9:14 PM Result Value Ref Range WBC 17.4 (H) 3.8 - 9.9 K/cumm Hgb 7.6 (L) 11.9 - 15.5 g/dL Hct 23.6 (L) 35.6 - 45.5 % Plt 174 150 - 400 K/cumm MPV 10.8 9.1 - 12.3 fL RBC 2.72 (L) 3.90 - 5.20 M/cumm MCV 86.8 81.3 - 96.4 fL MCH 27.9 27.1 - 33.3 pg MCHC 32.2 (L) 32.3 - 35.7 g/dL RDW CV 17.8 (H) 11.1 - 14.9 % RDW SD 55.1 (H) 35.7 - 48.1 fL NRBC abs 0.18 (H) 0.00 - 0.01 K/cumm Basic metabolic panel Collection Time: 07/01/19 9:14 PM Result Value Ref Range Sodium 135 135 - 145 mmol/L Potassium, pl 4.7 3.3 - 4.9 mmol/L Chloride 103 97 - 110 mmol/L CO2 24 22 - 32 mmol/L Anion gap 8 2 - 15 mmol/L BUN 12 8 - 25 mg/dL Creatinine 0.96 0.60 - 1.10 mg/dL Glucose 164 70 - 199 mg/dL Calcium 7.6 (L) 8.5 - 10.3 mg/dL Calcium, ionized Collection Time: 07/01/19 9:14 PM Result Value Ref Range Calcium, Ionized 3.91 (L) 4.50 - 5.10 mg/dL Magnesium Collection Time: 07/01/19 9:14 PM Result Value Ref Range Magnesium 2.0 1.4 - 2.5 mg/dL Phosphorus Collection Time: 07/01/19 9:14 PM Result Value Ref Range Phosphorus, pl 2.7 2.3 - 4.5 mg/dL POCT glucose Collection Time: 07/01/19 9:21 PM Result Value Ref Range Glucose, POC 169 70 - 199 mg/dL POCT glucose Collection Time: 07/01/19 11:57 PM Result Value Ref Range Glucose, POC 119 70 - 199 mg/dL POCT glucose Collection Time: 07/02/19 4:08 AM Result Value Ref Range Glucose, POC 148 70 - 199 mg/dL POCT glucose Collection Time: 07/02/19 7:35 AM Result Value Ref Range Glucose, POC 155 70 - 199 mg/dL Xr Knee Left 1 Or 2 Views Result Date: 06/28/2019 1. Open comminuted periprosthetic fracture of the proximal left tibia 2. Open comminuted fracture of the proximal left fibula 3. Mildly displaced intra- articular right medial malleolus fracture 4. Noacute pelvic fracture. Dictated by: Luh Moffett M.D. Xr Tibia Fibula Left 2 Views Result Date: 06/28/2019 1. Open comminuted periprosthetic fracture of the proximal left tibia 2. Open comminuted fracture of the proximal left fibula 3. Mildly displaced intra- articular right medial malleolus fracture 4. Noacute pelvic fracture. Dictated by: Luh Moffett M.D. Xr Tibia Fibula Right 2 Views Result Date: 06/28/2019 1. Open comminuted periprosthetic fracture of the proximal left tibia 2. Open comminuted fracture of the proximal left fibula 3. Mildly displaced intra- articular right medial malleolus fracture 4. Noacute pelvic fracture. Dictated by: Luh Moffett M.D. Xr Ankle Left 3 Or More Views Result Date: 06/28/2019 1. Open comminuted periprosthetic fracture of the proximal left tibia 2. Open comminuted fracture of the proximal left fibula 3. Mildly displaced intra- articular right medial malleolus fracture 4. Noacute pelvic fracture. Dictated by: Luh Moffett M.D. Xr Ankle Right 3 Or More Views Result Date: 06/28/2019 1. Open comminuted periprosthetic fracture of the proximal left tibia 2. Open comminuted fracture of the proximal left fibula 3. Mildly displaced intra- articular right medial malleolus fracture 4. Noacute pelvic fracture. Dictated by: Luh Moffett M.D. Cta Lower Extremity Left Result Date: 06/29/2019 1. Left lower extremity: Three-vessel runoff. 2. Non-opacification of a left peroneal artery proximal segment with distal reconstitution is favored to represent focal vasospasm/stenosis secondary to extrinsic arterial compression from the surrounding muscular edema. No evidence of arterial injury. 3. Markedly comminuted, open, angulated, and displaced periprosthetic fracture of the left proximal tibia. 4. Comminuted, angulated, and displaced fracture of the left proximal fibula. 5. Marked muscular intensity adjacent edema of the distal left lower extremity. Dictated by: Mikhail Beyer Xr Chest 1 Vw Portable Result Date: 06/28/2019 1st is made to same day chest CT. There is an endotracheal tube which terminates 1.3 cm above the jesús. A gastric tube projects below the left hemidiaphragm, extending at least to the body of the stomach. Lung volumes are decreased with bibasilar atelectasis. There are right upper lung predominant opacities correlate with areas of groundglass opacity seen on CT and may represent asymmetric pulmonary edema. There is no pleural effusion or pneumothorax. Cardiomediastinal contours are within normal limits accounting for portable technique and low lung volumes. Dictated by: Luh Moffett M.D. Xr Femur Left 2 Or More Views Result Date: 06/28/2019 1. Open comminuted periprosthetic fracture of the proximal left tibia 2. Open comminuted fracture of the proximal left fibula 3. Mildly displaced intra- articular right medial malleolus fracture 4. Noacute pelvic fracture. Dictated by: Luh Moffett M.D. Ct Chest Abdomen Pelvis W Contrast Result Date: 06/28/2019 1. No acute intra-abdominal traumatic injury. 2. Scattered, biapical groundglass opacities with septal line thickening may represent mild pulmonary edema. 3. Mild bibasilar atelectasis. Dictated by: Mikhail Beyer Xr Pelvis 1 Or 2 Views Result Date: 06/28/2019 1. Open comminuted periprosthetic fracture of the proximal left tibia 2. Open comminuted fracture of the proximal left fibula 3. Mildly displaced intra- articular right medial malleolus fracture 4. Noacute pelvic fracture. Dictated by: Luh Moffett M.D. Ct Head And Cervical Spine Wo Contrast Result Date: 06/29/2019 1. No acute intracranial abnormality, such as hemorrhage. 2. No evidence of acute fracture in the cervical spine. 3. Recommend follow up of the Incidental enlarged pituitary with MRI pituitary protocol if clinically indicated. Dictated by: Adithya Murphy M.D. Trauma Surgical plan: #Acute respiratory failure -resolved #L proximal tibia periprosthetic fracture -s/p I&D and revision ORIF 06/30 -NWB 6 weeks, in HKB locked in extension #R medial malleolus fracture -s/p ORIF 06/30 in [facility], NWB 6 weeks # Acute pain due to trauma - Pain service s/o - Baclofen 2.5mg TID - Flexeril - Gabapentin - Dilaudid DC'd?? #LUAN: - Creatinine improving, 0.96 on 07/01 no new labs - DVT px; Lovenox - Home meds; Lasix 40mg BID at home - Dispo: pending placement Leroy Reddy MD Department of Orthopaedic Surgery PGY1 [facility] in [facility] SALES SERVICE PROFESSIONAL * Leroy Reddy MD - 07/03/2019 1:18 PM CST [facility] Trauma Surgery Daily Progress Subjective Patient is a 68 y.o. female admitted on 06/28/2019 4:47 PM with chief complaint of Chief Complaint Patient presents with ??? Fall Interval History: NAEON. Pain better controlled Good tolerance to oral diet Passing gas, bowel movement yesterday Delarosa removed LLE; Incisional wound vac in place, holding suction needs to be removed by ortho before DC RLE; splint in place Objective Physical Exam: GENERAL: WDWN NEURO: A&Ox3 PSYCH: Unable to assess HEENT: normocephalic, atraumatic, neck supple, trachea midline RESP:Nonlabored breathing, no audible wheezing. CARDIO: RRR on telemetry. ABDOMEN: Soft, ND LLE; Incisional wound vac in place, holding suction. Motor and sensation intact RLE; splint in place, Motor and sensation intact Active and Removed Drain / Nasogastric/Orogastric tube / Rectal tube / Gastrostomy/Enterostomy / Chest tube NG/OG Tube Orogastric Left mouth 1 day Urethral Catheter Temperature probe;Double-lumen 16 Fr. less than 1 day Vital signs for last 24 hours: Temp: [36.7 ??C (98.1 ??F)-37.3 ??C (99.1 ??F)] 37.1 ??C (98.8 ??F) Pulse: [98-111] 106 BP: (126-153)/(51-78) 129/51 Resp: [16-24] 24 SpO2: [93 %-100 %] 96 % Hemodynamics: MAP (mmHg): [74-81] 80 Pulmonary Support: O2 Therapy: Supplemental oxygen O2 Del Method: Nasal cannula FiO2 (%): 40 % O2 Flow Rate (L/min): 2 L/min Intake/Output: I/O this shift: In: - Out: 575 [Urine:575] Lab/Radiology/Diagnostic Review: Recent Results (from the past 72 hour(s)) POC Blood Gas and Chemistries, Venous - Collection Time: 06/30/19 1:27 PM Result Value Ref Range pH, Rj POC 7.36 7.32 - 7.43 pCO2, Rj POC 47 40 - 50 mmHg pO2, Rj POC 43 mmHg Na, POC 138 135 - 145 mmol/L K, POC 3.8 3.3 - 4.9 mmol/L Cl, POC 107 97 - 110 mmol/L Ionized Ca, POC 5.20 (H) 4.50 - 5.10 mg/dL Glucose, POC 132 70 - 199 mg/dL Lactate, POC 1.4 0.7 - 2.2 mmol/L O2 Sat, Rj POC ([place]) 74 % Base Excess, POC 0.6 mmol/L HCO3, Rj POC 27 20 - 30 mmol/L Hct, POC 23.0 (L) 36.3 - 45.3 % Total Hb, POC 7.7 (L) 11.9 - 15.5 g/dL O2 Sat, Rj POC (Calc) 76 % POCT platelet count and hematocrit Collection Time: 06/30/19 1:28 PM Result Value Ref Range Hematocrit POC 23.1 (L) 36.1 - 44.3 % Platelet POC [facility] 188 140 - 440 K/cumm CBC without differential Collection Time: 06/30/19 4:21 PM Result Value Ref Range WBC 17.5 (H) 3.8 - 9.9 K/cumm Hgb 9.0 (L) 11.9 - 15.5 g/dL Hct 27.7 (L) 35.6 - 45.5 % Plt 189 150 - 400 K/cumm MPV 11.0 9.1 - 12.3 fL RBC 3.16 (L) 3.90 - 5.20 M/cumm MCV 87.7 81.3 - 96.4 fL MCH 28.5 27.1 - 33.3 pg MCHC 32.5 32.3 - 35.7 g/dL RDW CV 18.0 (H) 11.1 - 14.9 % RDW SD 57.1 (H) 35.7 - 48.1 fL NRBC abs 0.13 (H) 0.00 - 0.01 K/cumm aPTT Collection Time: 06/30/19 4:21 PM Result Value Ref Range aPTT 22 (L) 25 - 37 sec Protime-INR Collection Time: 06/30/19 4:21 PM Result Value Ref Range PT 12.8 8.6 - 13.0 sec INR 1.2 0.8 - 1.2 Lactate, whole blood Collection Time: 06/30/19 4:23 PM Result Value Ref Range Lactate, bld 1.8 0.7 - 2.0 mmol/L CBC without differential Collection Time: 06/30/19 10:06 PM Result Value Ref Range WBC 16.5 (H) 3.8 - 9.9 K/cumm Hgb 8.2 (L) 11.9 - 15.5 g/dL Hct 25.5 (L) 35.6 - 45.5 % Plt 166 150 - 400 K/cumm MPV 11.6 9.1 - 12.3 fL RBC 2.97 (L) 3.90 - 5.20 M/cumm MCV 85.9 81.3 - 96.4 fL MCH 27.6 27.1 - 33.3 pg MCHC 32.2 (L) 32.3 - 35.7 g/dL RDW CV 17.7 (H) 11.1 - 14.9 % RDW SD 54.6 (H) 35.7 - 48.1 fL NRBC abs 0.23 (H) 0.00 - 0.01 K/cumm Basic metabolic panel Collection Time: 06/30/19 10:06 PM Result Value Ref Range Sodium 139 135 - 145 mmol/L Potassium, pl 4.2 3.3 - 4.9 mmol/L Chloride 105 97 - 110 mmol/L CO2 26 22 - 32 mmol/L Anion gap 8 2 - 15 mmol/L BUN 14 8 - 25 mg/dL Creatinine 0.95 0.60 - 1.10 mg/dL Glucose 130 70 - 199 mg/dL Calcium 7.9 (L) 8.5 - 10.3 mg/dL Blood gas, arterial Collection Time: 06/30/19 10:06 PM Result Value Ref Range pH, Art POC 7.40 7.35 - 7.45 PCO2, Arterial 42 35 - 45 mmHg PO2, Arterial 107 83 - 108 mmHg HCO3 Art (Calculated) 27 20 - 30 mmol/L BE, art 1 mmol/L O2 Sat Art (Measured) 98 (H) 90 - 95 % Magnesium Collection Time: 06/30/19 10:06 PM Result Value Ref Range Magnesium 2.1 1.4 - 2.5 mg/dL POCT glucose Collection Time: 06/30/19 11:43 PM Result Value Ref Range Glucose, POC 98 70 - 199 mg/dL POCT glucose Collection Time: 07/01/19 7:41 AM Result Value Ref Range Glucose, POC 156 70 - 199 mg/dL Infection Prevention MRSA Only (Staphylococcus aureus) Culture Nasal Collection Time: 07/01/19 2:19 PM Result Value Ref Range Report Final Report: Negative CBC without differential Collection Time: 07/01/19 9:14 PM Result Value Ref Range WBC 17.4 (H) 3.8 - 9.9 K/cumm Hgb 7.6 (L) 11.9 - 15.5 g/dL Hct 23.6 (L) 35.6 - 45.5 % Plt 174 150 - 400 K/cumm MPV 10.8 9.1 - 12.3 fL RBC 2.72 (L) 3.90 - 5.20 M/cumm MCV 86.8 81.3 - 96.4 fL MCH 27.9 27.1 - 33.3 pg MCHC 32.2 (L) 32.3 - 35.7 g/dL RDW CV 17.8 (H) 11.1 - 14.9 % RDW SD 55.1 (H) 35.7 - 48.1 fL NRBC abs 0.18 (H) 0.00 - 0.01 K/cumm Basic metabolic panel Collection Time: 07/01/19 9:14 PM Result Value Ref Range Sodium 135 135 - 145 mmol/L Potassium, pl 4.7 3.3 - 4.9 mmol/L Chloride 103 97 - 110 mmol/L CO2 24 22 - 32 mmol/L Anion gap 8 2 - 15 mmol/L BUN 12 8 - 25 mg/dL Creatinine 0.96 0.60 - 1.10 mg/dL Glucose 164 70 - 199 mg/dL Calcium 7.6 (L) 8.5 - 10.3 mg/dL Calcium, ionized Collection Time: 07/01/19 9:14 PM Result Value Ref Range Calcium, Ionized 3.91 (L) 4.50 - 5.10 mg/dL Magnesium Collection Time: 07/01/19 9:14 PM Result Value Ref Range Magnesium 2.0 1.4 - 2.5 mg/dL Phosphorus Collection Time: 07/01/19 9:14 PM Result Value Ref Range Phosphorus, pl 2.7 2.3 - 4.5 mg/dL POCT glucose Collection Time: 07/01/19 9:21 PM Result Value Ref Range Glucose, POC 169 70 - 199 mg/dL POCT glucose Collection Time: 07/01/19 11:57 PM Result Value Ref Range Glucose, POC 119 70 - 199 mg/dL POCT glucose Collection Time: 07/02/19 4:08 AM Result Value Ref Range Glucose, POC 148 70 - 199 mg/dL POCT glucose Collection Time: 07/02/19 7:35 AM Result Value Ref Range Glucose, POC 155 70 - 199 mg/dL Xr Knee Left 1 Or 2 Views Result Date: 06/28/2019 1. Open comminuted periprosthetic fracture of the proximal left tibia 2. Open comminuted fracture of the proximal left fibula 3. Mildly displaced intra- articular right medial malleolus fracture 4. Noacute pelvic fracture. Dictated by: Luh Moffett M.D. Xr Tibia Fibula Left 2 Views Result Date: 06/28/2019 1. Open comminuted periprosthetic fracture of the proximal left tibia 2. Open comminuted fracture of the proximal left fibula 3. Mildly displaced intra- articular right medial malleolus fracture 4. Noacute pelvic fracture. Dictated by: Luh Moffett M.D. Xr Tibia Fibula Right 2 Views Result Date: 06/28/2019 1. Open comminuted periprosthetic fracture of the proximal left tibia 2. Open comminuted fracture of the proximal left fibula 3. Mildly displaced intra- articular right medial malleolus fracture 4. Noacute pelvic fracture. Dictated by: Luh Moffett M.D. Xr Ankle Left 3 Or More Views Result Date: 06/28/2019 1. Open comminuted periprosthetic fracture of the proximal left tibia 2. Open comminuted fracture of the proximal left fibula 3. Mildly displaced intra- articular right medial malleolus fracture 4. Noacute pelvic fracture. Dictated by: Luh Moffett M.D. Xr Ankle Right 3 Or More Views Result Date: 06/28/2019 1. Open comminuted periprosthetic fracture of the proximal left tibia 2. Open comminuted fracture of the proximal left fibula 3. Mildly displaced intra- articular right medial malleolus fracture 4. Noacute pelvic fracture. Dictated by: Luh Moffett M.D. Cta Lower Extremity Left Result Date: 06/29/2019 1. Left lower extremity: Three-vessel runoff. 2. Non-opacification of a left peroneal artery proximal segment with distal reconstitution is favored to represent focal vasospasm/stenosis secondary to extrinsic arterial compression from the surrounding muscular edema. No evidence of arterial injury. 3. Markedly comminuted, open, angulated, and displaced periprosthetic fracture of the left proximal tibia. 4. Comminuted, angulated, and displaced fracture of the left proximal fibula. 5. Marked muscular intensity adjacent edema of the distal left lower extremity. Dictated by: Mikhail Beyer Xr Chest 1 Vw Portable Result Date: 06/28/2019 1st is made to same day chest CT. There is an endotracheal tube which terminates 1.3 cm above the jesús. A gastric tube projects below the left hemidiaphragm, extending at least to the body of the stomach. Lung volumes are decreased with bibasilar atelectasis. There are right upper lung predominant opacities correlate with areas of groundglass opacity seen on CT and may represent asymmetric pulmonary edema. There is no pleural effusion or pneumothorax. Cardiomediastinal contours are within normal limits accounting for portable technique and low lung volumes. Dictated by: Luh Moffett M.D. Xr Femur Left 2 Or More Views Result Date: 06/28/2019 1. Open comminuted periprosthetic fracture of the proximal left tibia 2. Open comminuted fracture of the proximal left fibula 3. Mildly displaced intra- articular right medial malleolus fracture 4. Noacute pelvic fracture. Dictated by: Luh Moffett M.D. Ct Chest Abdomen Pelvis W Contrast Result Date: 06/28/2019 1. No acute intra-abdominal traumatic injury. 2. Scattered, biapical groundglass opacities with septal line thickening may represent mild pulmonary edema. 3. Mild bibasilar atelectasis. Dictated by: Mikhail Beyer Xr Pelvis 1 Or 2 Views Result Date: 06/28/2019 1. Open comminuted periprosthetic fracture of the proximal left tibia 2. Open comminuted fracture of the proximal left fibula 3. Mildly displaced intra- articular right medial malleolus fracture 4. Noacute pelvic fracture. Dictated by: Luh Moffett M.D. Ct Head And Cervical Spine Wo Contrast Result Date: 06/29/2019 1. No acute intracranial abnormality, such as hemorrhage. 2. No evidence of acute fracture in the cervical spine. 3. Recommend follow up of the Incidental enlarged pituitary with MRI pituitary protocol if clinically indicated. Dictated by: Adithya Murphy M.D. Trauma Surgical plan: #Acute respiratory failure - resolved #L tibia/fibula fracture -s/p ORIF 06/28 -s/p ORIF TIBIA - PROXIMAL - SYNTHES (Left) - HKB locked in extension #R medial malleolus fracture - s/p ORIF- ANKLE (Right) 06/30 - [facility] # Acute pain due to trauma - Pain service following - Baclofen 5mg BID, tomorrow decrease to 2.5 mg TID - Flexeril - Gabapentin - Continue to encourage weaning of dilaudid by patient. If needed, would be reasonable to increase oxycodone to 10mg q 3hrs or to 15mg q3hrs. #LUAN: - Creatinine improving, 0.96 on 07/01 no new labs - DVT px; Lovenox - Home meds; Lasix 40mg BID at home - Dispo: pending placement Leroy Reddy MD Department of Orthopaedic Surgery PGY1 [facility] in [facility] SALES SERVICE PROFESSIONAL * Mary Ann Barrett RN - 07/03/2019 8:36 AM CST 07/03/19 0835 Information Information Obtained From Patient Referral Data Referral Reason Discharge Planning Prior to Admission Primary Caregiver Self Support System Friends/neighbors Support system contact info (name, phone, availablity) friend Jt Contreras [phone] Durable Medical Equipment Walker (no wheels);Cane (single prong);Wheelchair Living Arrangements Alone Type of Residence Apartment Steps in home? Yes, Outside of home Number of steps outside: 40 steps Potential Discharge Needs Anticipated discharge level of care Other (Comment) (will await therapy evals for dispo recommendations ) Impression: open fracture of the left tib/ fib following a fall from standing Additional Information/Options Discussed: Explained role and purpose of CM. Demographics verified with face sheet. PCP verified as Hernando Velasquez MD Plan Includes: Will await therapy evals for dispo recommendations. Prior to admission, patient was open with [facility] [phone]. 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 Case management will continue to follow for discharge planning and referrals as needed. Insurance verified as: [employer], [place] Admit Source: non health care facility point of origin Problem/Goal: Patient awaits further evaluation for medical discharge needs and home needs. CM willassist patient with home needs as indicated and identified for safe discharge planning Through the course of our work I determined that friendspossess the skill and ability to provide and monitor the care of the patient when he or she returns home. Friends has the capacity to provide/monitor/arrange for the care of the patient. Finally, we determined that friends has the knowledge ofavailable resources and that combining them with their existing resources will suffice to sustain and care for the patient when he or she returns home. The treatment team is aware of this information. All are in agreement with the aftercare plan. SALES SERVICE PROFESSIONAL * Niki Moore MD - 07/02/2019 1:57 PM CST [facility] Trauma Surgery Daily Progress Subjective Patient is a 68 y.o. female admitted on 06/28/2019 4:47 PM with chief complaint of Chief Complaint Patient presents with ??? Fall Interval History: NAEON. Pain better controlled Good tolerance to oral diet Passing gas Delarosa in place LLE; Incisional wound vac in place, holding suction RLE; splint in place Objective Physical Exam: GENERAL: WDWN NEURO: Sedated PSYCH: Unable to assess HEENT: normocephalic, atraumatic, neck supple, trachea midline RESP: Equal chest rise on mechanical ventilation, no audible wheezing. CARDIO: RRR on telemetry. ABDOMEN: Soft, ND LLE; Incisional wound vac in place, holding suction. Motor and sensation intact RLE; splint in place, Motor and sensation intact Active and Removed Drain / Nasogastric/Orogastric tube / Rectal tube / Gastrostomy/Enterostomy / Chest tube NG/OG Tube Orogastric Left mouth 1 day Urethral Catheter Temperature probe;Double-lumen 16 Fr. less than 1 day Vital signs for last 24 hours: Temp: [37 ??C (98.6 ??F)-38.3 ??C (100.9 ??F)] 37.1 ??C (98.8 ??F) Pulse: [91-125] 110 BP: (102-139)/(45-67) 135/49 Resp: [14-22] 22 SpO2: [94 %-100 %] 96 % Hemodynamics: MAP (mmHg): [59-79] 79 Pulmonary Support: O2 Therapy: Supplemental oxygen O2 Del Method: Nasal cannula FiO2 (%): 40 % O2 Flow Rate (L/min): 2 L/min Intake/Output: I/O this shift: In: - Out: 475 [Urine:475] Lab/Radiology/Diagnostic Review: Recent Results (from the past 72 hour(s)) POCT glucose Collection Time: 06/29/19 1:58 PM Result Value Ref Range Glucose, POC 121 70 - 199 mg/dL POCT glucose Collection Time: 06/29/19 4:00 PM Result Value Ref Range Glucose, POC 112 70 - 199 mg/dL POCT glucose Collection Time: 06/29/19 4:57 PM Result Value Ref Range Glucose, POC 58 (L) 70 - 199 mg/dL POCT glucose Collection Time: 06/29/19 4:58 PM Result Value Ref Range Glucose, POC 113 70 - 199 mg/dL Gentamicin level, trough Collection Time: 06/29/19 4:59 PM Result Value Ref Range Gentamicin, Trough 1.6 0.1 - 2.0 mcg/mL POCT glucose Collection Time: 06/29/19 5:44 PM Result Value Ref Range Glucose, POC 166 70 - 199 mg/dL POCT glucose Collection Time: 06/29/19 5:45 PM Result Value Ref Range Glucose, POC 133 70 - 199 mg/dL POCT glucose Collection Time: 06/29/19 7:13 PM Result Value Ref Range Glucose, POC 146 70 - 199 mg/dL POCT glucose Collection Time: 06/29/19 7:54 PM Result Value Ref Range Glucose, POC 144 70 - 199 mg/dL POCT glucose Collection Time: 06/29/19 9:17 PM Result Value Ref Range Glucose, POC 128 70 - 199 mg/dL CBC with auto differential Collection Time: 06/29/19 10:35 PM Result Value Ref Range WBC 15.3 (H) 3.8 - 9.9 K/cumm Hgb 6.4 (Critical) 11.9 - 15.5 g/dL Hct 19.9 (L) 35.6 - 45.5 % Plt 178 150 - 400 K/cumm MPV 10.8 9.1 - 12.3 fL RBC 2.36 (L) 3.90 - 5.20 M/cumm MCV 84.3 81.3 - 96.4 fL MCH 27.1 27.1 - 33.3 pg MCHC 32.2 (L) 32.3 - 35.7 g/dL RDW CV 20.6 (H) 11.1 - 14.9 % RDW SD 62.4 (H) 35.7 - 48.1 fL NRBC abs 0.05 (H) 0.00 - 0.01 K/cumm Basic metabolic panel Collection Time: 06/29/19 10:35 PM Result Value Ref Range Sodium 139 135 - 145 mmol/L Potassium, pl 4.6 3.3 - 4.9 mmol/L Chloride 105 97 - 110 mmol/L CO2 30 22 - 32 mmol/L Anion gap 4 2 - 15 mmol/L BUN 22 8 - 25 mg/dL Creatinine 1.14 (H) 0.60 - 1.10 mg/dL Glucose 145 70 - 199 mg/dL Calcium 8.3 (L) 8.5 - 10.3 mg/dL Magnesium Collection Time: 06/29/19 10:35 PM Result Value Ref Range Magnesium 1.7 1.4 - 2.5 mg/dL Differential, auto Collection Time: 06/29/19 10:35 PM Result Value Ref Range Neutrophil abs 8.8 (H) 1.7 - 6.5 K/cumm Imm gran abs 0.2 (H) 0.0 - 0.1 K/cumm Lymphocyte abs 4.7 (H) 0.8 - 3.3 K/cumm Monocyte abs 1.6 (H) 0.2 - 0.8 K/cumm Eosinophil abs 0.1 0.0 - 0.5 K/cumm Basophil abs 0.0 0.0 - 0.1 K/cumm Neutrophil pct 57.3 % Imm gran pct 1.2 % Lymphocyte pct 30.8 % Monocyte pct 10.1 % Eosinophil pct 0.4 % Basophil pct 0.2 % Phosphorus Collection Time: 06/29/19 10:35 PM Result Value Ref Range Phosphorus, pl 3.5 2.3 - 4.5 mg/dL CBC without differential Collection Time: 06/29/19 11:23 PM Result Value Ref Range WBC 14.7 (H) 3.8 - 9.9 K/cumm Hgb 6.5 (L) 11.9 - 15.5 g/dL Hct 20.2 (L) 35.6 - 45.5 % Plt 173 150 - 400 K/cumm MPV 11.4 9.1 - 12.3 fL RBC 2.39 (L) 3.90 - 5.20 M/cumm MCV 84.5 81.3 - 96.4 fL MCH 27.2 27.1 - 33.3 pg MCHC 32.2 (L) 32.3 - 35.7 g/dL RDW CV 20.6 (H) 11.1 - 14.9 % RDW SD 63.5 (H) 35.7 - 48.1 fL NRBC abs 0.04 (H) 0.00 - 0.01 K/cumm POCT glucose Collection Time: 06/29/19 11:46 PM Result Value Ref Range Glucose, POC 136 70 - 199 mg/dL Prepare RBC: 1 Units Collection Time: 06/30/19 12:45 AM Result Value Ref Range Product code [id number] Unit Number [id number] Product Blood Type APOS Dispense Status PRESUMED TRANSFUSED POCT glucose Collection Time: 06/30/19 3:36 AM Result Value Ref Range Glucose, POC 126 70 - 199 mg/dL CBC without differential Collection Time: 06/30/19 4:35 AM Result Value Ref Range WBC 17.1 (H) 3.8 - 9.9 K/cumm Hgb 8.0 (L) 11.9 - 15.5 g/dL Hct 24.2 (L) 35.6 - 45.5 % Plt 188 150 - 400 K/cumm MPV 11.4 9.1 - 12.3 fL RBC 2.87 (L) 3.90 - 5.20 M/cumm MCV 84.3 81.3 - 96.4 fL MCH 27.9 27.1 - 33.3 pg MCHC 33.1 32.3 - 35.7 g/dL RDW CV 18.4 (H) 11.1 - 14.9 % RDW SD 55.6 (H) 35.7 - 48.1 fL NRBC abs 0.05 (H) 0.00 - 0.01 K/cumm POCT glucose Collection Time: 06/30/19 8:07 AM Result Value Ref Range Glucose, POC 140 70 - 199 mg/dL Prepare RBC: 2 Units Collection Time: 06/30/19 10:49 AM Result Value Ref Range Product code [id number] Unit Number [id number] Product Blood Type APOS Dispense Status RETURNED Product code [id number] Unit Number [id number] Product Blood Type APOS Dispense Status PRESUMED TRANSFUSED CBC with auto differential Collection Time: 06/30/19 11:27 AM Result Value Ref Range WBC 14.0 (H) 3.8 - 9.9 K/cumm Hgb 7.7 (L) 11.9 - 15.5 g/dL Hct 24.0 (L) 35.6 - 45.5 % Plt 166 150 - 400 K/cumm MPV 11.7 9.1 - 12.3 fL RBC 2.78 (L) 3.90 - 5.20 M/cumm MCV 86.3 81.3 - 96.4 fL MCH 27.7 27.1 - 33.3 pg MCHC 32.1 (L) 32.3 - 35.7 g/dL RDW CV 18.5 (H) 11.1 - 14.9 % RDW SD 57.6 (H) 35.7 - 48.1 fL NRBC abs 0.07 (H) 0.00 - 0.01 K/cumm Differential, auto Collection Time: 06/30/19 11:27 AM Result Value Ref Range Neutrophil abs 8.8 (H) 1.7 - 6.5 K/cumm Imm gran abs 0.2 (H) 0.0 - 0.1 K/cumm Lymphocyte abs 2.9 0.8 - 3.3 K/cumm Monocyte abs 1.8 (H) 0.2 - 0.8 K/cumm Eosinophil abs 0.1 0.0 - 0.5 K/cumm Basophil abs 0.0 0.0 - 0.1 K/cumm Neutrophil pct 63.4 % Imm gran pct 1.5 % Lymphocyte pct 20.8 % Monocyte pct 13.1 % Eosinophil pct 0.9 % Basophil pct 0.3 % POC Blood Gas and Chemistries, Venous - Collection Time: 06/30/19 1:27 PM Result Value Ref Range pH, Rj POC 7.36 7.32 - 7.43 pCO2, Rj POC 47 40 - 50 mmHg pO2, Rj POC 43 mmHg Na, POC 138 135 - 145 mmol/L K, POC 3.8 3.3 - 4.9 mmol/L Cl, POC 107 97 - 110 mmol/L Ionized Ca, POC 5.20 (H) 4.50 - 5.10 mg/dL Glucose, POC 132 70 - 199 mg/dL Lactate, POC 1.4 0.7 - 2.2 mmol/L O2 Sat, Rj POC ([place]) 74 % Base Excess, POC 0.6 mmol/L HCO3, Rj POC 27 20 - 30 mmol/L Hct, POC 23.0 (L) 36.3 - 45.3 % Total Hb, POC 7.7 (L) 11.9 - 15.5 g/dL O2 Sat, Rj POC (Calc) 76 % POCT platelet count and hematocrit Collection Time: 06/30/19 1:28 PM Result Value Ref Range Hematocrit POC 23.1 (L) 36.1 - 44.3 % Platelet POC [facility] 188 140 - 440 K/cumm CBC without differential Collection Time: 06/30/19 4:21 PM Result Value Ref Range WBC 17.5 (H) 3.8 - 9.9 K/cumm Hgb 9.0 (L) 11.9 - 15.5 g/dL Hct 27.7 (L) 35.6 - 45.5 % Plt 189 150 - 400 K/cumm MPV 11.0 9.1 - 12.3 fL RBC 3.16 (L) 3.90 - 5.20 M/cumm MCV 87.7 81.3 - 96.4 fL MCH 28.5 27.1 - 33.3 pg MCHC 32.5 32.3 - 35.7 g/dL RDW CV 18.0 (H) 11.1 - 14.9 % RDW SD 57.1 (H) 35.7 - 48.1 fL NRBC abs 0.13 (H) 0.00 - 0.01 K/cumm aPTT Collection Time: 06/30/19 4:21 PM Result Value Ref Range aPTT 22 (L) 25 - 37 sec Protime-INR Collection Time: 06/30/19 4:21 PM Result Value Ref Range PT 12.8 8.6 - 13.0 sec INR 1.2 0.8 - 1.2 Lactate, whole blood Collection Time: 06/30/19 4:23 PM Result Value Ref Range Lactate, bld 1.8 0.7 - 2.0 mmol/L CBC without differential Collection Time: 06/30/19 10:06 PM Result Value Ref Range WBC 16.5 (H) 3.8 - 9.9 K/cumm Hgb 8.2 (L) 11.9 - 15.5 g/dL Hct 25.5 (L) 35.6 - 45.5 % Plt 166 150 - 400 K/cumm MPV 11.6 9.1 - 12.3 fL RBC 2.97 (L) 3.90 - 5.20 M/cumm MCV 85.9 81.3 - 96.4 fL MCH 27.6 27.1 - 33.3 pg MCHC 32.2 (L) 32.3 - 35.7 g/dL RDW CV 17.7 (H) 11.1 - 14.9 % RDW SD 54.6 (H) 35.7 - 48.1 fL NRBC abs 0.23 (H) 0.00 - 0.01 K/cumm Basic metabolic panel Collection Time: 06/30/19 10:06 PM Result Value Ref Range Sodium 139 135 - 145 mmol/L Potassium, pl 4.2 3.3 - 4.9 mmol/L Chloride 105 97 - 110 mmol/L CO2 26 22 - 32 mmol/L Anion gap 8 2 - 15 mmol/L BUN 14 8 - 25 mg/dL Creatinine 0.95 0.60 - 1.10 mg/dL Glucose 130 70 - 199 mg/dL Calcium 7.9 (L) 8.5 - 10.3 mg/dL Blood gas, arterial Collection Time: 06/30/19 10:06 PM Result Value Ref Range pH, Art POC 7.40 7.35 - 7.45 PCO2, Arterial 42 35 - 45 mmHg PO2, Arterial 107 83 - 108 mmHg HCO3 Art (Calculated) 27 20 - 30 mmol/L BE, art 1 mmol/L O2 Sat Art (Measured) 98 (H) 90 - 95 % Magnesium Collection Time: 06/30/19 10:06 PM Result Value Ref Range Magnesium 2.1 1.4 - 2.5 mg/dL POCT glucose Collection Time: 06/30/19 11:43 PM Result Value Ref Range Glucose, POC 98 70 - 199 mg/dL POCT glucose Collection Time: 07/01/19 7:41 AM Result Value Ref Range Glucose, POC 156 70 - 199 mg/dL CBC without differential Collection Time: 07/01/19 9:14 PM Result Value Ref Range WBC 17.4 (H) 3.8 - 9.9 K/cumm Hgb 7.6 (L) 11.9 - 15.5 g/dL Hct 23.6 (L) 35.6 - 45.5 % Plt 174 150 - 400 K/cumm MPV 10.8 9.1 - 12.3 fL RBC 2.72 (L) 3.90 - 5.20 M/cumm MCV 86.8 81.3 - 96.4 fL MCH 27.9 27.1 - 33.3 pg MCHC 32.2 (L) 32.3 - 35.7 g/dL RDW CV 17.8 (H) 11.1 - 14.9 % RDW SD 55.1 (H) 35.7 - 48.1 fL NRBC abs 0.18 (H) 0.00 - 0.01 K/cumm Basic metabolic panel Collection Time: 07/01/19 9:14 PM Result Value Ref Range Sodium 135 135 - 145 mmol/L Potassium, pl 4.7 3.3 - 4.9 mmol/L Chloride 103 97 - 110 mmol/L CO2 24 22 - 32 mmol/L Anion gap 8 2 - 15 mmol/L BUN 12 8 - 25 mg/dL Creatinine 0.96 0.60 - 1.10 mg/dL Glucose 164 70 - 199 mg/dL Calcium 7.6 (L) 8.5 - 10.3 mg/dL Calcium, ionized Collection Time: 07/01/19 9:14 PM Result Value Ref Range Calcium, Ionized 3.91 (L) 4.50 - 5.10 mg/dL Magnesium Collection Time: 07/01/19 9:14 PM Result Value Ref Range Magnesium 2.0 1.4 - 2.5 mg/dL Phosphorus Collection Time: 07/01/19 9:14 PM Result Value Ref Range Phosphorus, pl 2.7 2.3 - 4.5 mg/dL POCT glucose Collection Time: 07/01/19 9:21 PM Result Value Ref Range Glucose, POC 169 70 - 199 mg/dL POCT glucose Collection Time: 07/01/19 11:57 PM Result Value Ref Range Glucose, POC 119 70 - 199 mg/dL POCT glucose Collection Time: 07/02/19 4:08 AM Result Value Ref Range Glucose, POC 148 70 - 199 mg/dL POCT glucose Collection Time: 07/02/19 7:35 AM Result Value Ref Range Glucose, POC 155 70 - 199 mg/dL Xr Knee Left 1 Or 2 Views Result Date: 06/28/2019 1. Open comminuted periprosthetic fracture of the proximal left tibia 2. Open comminuted fracture of the proximal left fibula 3. Mildly displaced intra- articular right medial malleolus fracture 4. Noacute pelvic fracture. Dictated by: Luh Moffett M.D. Xr Tibia Fibula Left 2 Views Result Date: 06/28/2019 1. Open comminuted periprosthetic fracture of the proximal left tibia 2. Open comminuted fracture of the proximal left fibula 3. Mildly displaced intra- articular right medial malleolus fracture 4. Noacute pelvic fracture. Dictated by: Luh Moffett M.D. Xr Tibia Fibula Right 2 Views Result Date: 06/28/2019 1. Open comminuted periprosthetic fracture of the proximal left tibia 2. Open comminuted fracture of the proximal left fibula 3. Mildly displaced intra- articular right medial malleolus fracture 4. Noacute pelvic fracture. Dictated by: Luh Moffett M.D. Xr Ankle Left 3 Or More Views Result Date: 06/28/2019 1. Open comminuted periprosthetic fracture of the proximal left tibia 2. Open comminuted fracture of the proximal left fibula 3. Mildly displaced intra- articular right medial malleolus fracture 4. Noacute pelvic fracture. Dictated by: Luh Moffett M.D. Xr Ankle Right 3 Or More Views Result Date: 06/28/2019 1. Open comminuted periprosthetic fracture of the proximal left tibia 2. Open comminuted fracture of the proximal left fibula 3. Mildly displaced intra- articular right medial malleolus fracture 4. Noacute pelvic fracture. Dictated by: Luh Moffett M.D. Cta Lower Extremity Left Result Date: 06/29/2019 1. Left lower extremity: Three-vessel runoff. 2. Non-opacification of a left peroneal artery proximal segment with distal reconstitution is favored to represent focal vasospasm/stenosis secondary to extrinsic arterial compression from the surrounding muscular edema. No evidence of arterial injury. 3. Markedly comminuted, open, angulated, and displaced periprosthetic fracture of the left proximal tibia. 4. Comminuted, angulated, and displaced fracture of the left proximal fibula. 5. Marked muscular intensity adjacent edema of the distal left lower extremity. Dictated by: Mikhail Beyer Xr Chest 1 Vw Portable Result Date: 06/28/2019 1st is made to same day chest CT. There is an endotracheal tube which terminates 1.3 cm above the jesús. A gastric tube projects below the left hemidiaphragm, extending at least to the body of the stomach. Lung volumes are decreased with bibasilar atelectasis. There are right upper lung predominant opacities correlate with areas of groundglass opacity seen on CT and may represent asymmetric pulmonary edema. There is no pleural effusion or pneumothorax. Cardiomediastinal contours are within normal limits accounting for portable technique and low lung volumes. Dictated by: Luh Moffett M.D. Xr Femur Left 2 Or More Views Result Date: 06/28/2019 1. Open comminuted periprosthetic fracture of the proximal left tibia 2. Open comminuted fracture of the proximal left fibula 3. Mildly displaced intra- articular right medial malleolus fracture 4. Noacute pelvic fracture. Dictated by: Luh Moffett M.D. Ct Chest Abdomen Pelvis W Contrast Result Date: 06/28/2019 1. No acute intra-abdominal traumatic injury. 2. Scattered, biapical groundglass opacities with septal line thickening may represent mild pulmonary edema. 3. Mild bibasilar atelectasis. Dictated by: Mikhail Beyer Xr Pelvis 1 Or 2 Views Result Date: 06/28/2019 1. Open comminuted periprosthetic fracture of the proximal left tibia 2. Open comminuted fracture of the proximal left fibula 3. Mildly displaced intra- articular right medial malleolus fracture 4. Noacute pelvic fracture. Dictated by: Luh Moffett M.D. Ct Head And Cervical Spine Wo Contrast Result Date: 06/29/2019 1. No acute intracranial abnormality, such as hemorrhage. 2. No evidence of acute fracture in the cervical spine. 3. Recommend follow up of the Incidental enlarged pituitary with MRI pituitary protocol if clinically indicated. Dictated by: Adithya Murphy M.D. Trauma Surgical plan: #Acute respiratory failure - resolved #L tibia/fibula fracture -s/p ORIF 06/28 -s/p ORIF TIBIA - PROXIMAL - SYNTHES (Left) - HKB locked in extension #R medial malleolus fracture - s/p ORIF- ANKLE (Right) - SLS # Acute pain due to trauma - Pain service following - Baclofen 5mg BID, tomorrow decrease to 2.5 mg TID - Flexeril - Gabapentin - Continue to encourage weaning of dilaudid by patient. If needed, would be reasonable to increase oxycodone to 10mg q 3hrs or to 15mg q3hrs. #LUAN: - Creatinine improving, 0.96 today - DVT px; Lovenox - Home meds; re-start Lasix, 20 mg BID (40mg BID at home) - Dispo: pending Niki Delgado MD PGY-2 Cosigned by Madhav Long DO at 07/03/2019 5:41 PM HOME SALES SERVICE PROFESSIONAL SALES SERVICE PROFESSIONAL SALES SERVICE PROFESSIONAL Associated attestation - Madhav Long DO - 07/03/2019 5:41 PM HOME SALES SERVICE PROFESSIONAL I have seen and examined the patient on 07/02/2019. I agree with the findings and plan of care as documented in the resident's/fellow's note. In addition I note: Transferred from ICU, continues to complain of pain No acute distress, following commands Normal work of breathing Chest wall stable Abdomen soft nontender Bilateral lower extremity splints, good cap refill, sensation intact Labs and imaging reviewed Plan Left tibia/fibular fracture: status post ORIF, hinged knee brace Right medial malleolus fracture: Status post ORIF, SLS Acute pain: Pain service following given history of chronic pain: Baclofen, Flexeril, gabapentin LUAN: Creatinine improving Dispo: Pending therapy evaluation * Geraldine Donato DPT - 07/02/2019 11:01 AM CST Physical Therapy As supervising therapist, I agree with all information documented by PT student Bashir Mckeon SALES SERVICE PROFESSIONAL * Blayne Aguilar MD - 07/02/2019 9:55 AM CST Acute Pain Service Daily Progress Note Subjective Chief complaint of leg pain. Interval History: Patient reports her pain is significant improved since yesterday after resumption of many of her home pain meidcations. Patient reports pain as 7/10 vs. 10/10 which is her chronic baseline level of pain. Discussed with patient changing medication regimen, but she expressed a desire to keep her analgesic regimen as written. Patient asking about trazadone for sleep. Current Regimen: - APAP kelin - Baclofen 5mg BID kelin - Flexeril 10 TID kelin - Gabapentin 400mg TID kelin - Oxy 10 q4hr PRN (40/24) - Dilaudid 0.25q4hr PRN (0.5/24) Scheduled Medications: acetaminophen, 1,000 mg, oral, Q6H KELIN atorvastatin, 10 mg, oral, Nightly baclofen, 5 mg, oral, BID with meals (bkfst, dinner) cyclobenzaprine, 10 mg, oral, TID docusate sodium, 100 mg, oral, BID enoxaparin, 40 mg, subcutaneous, Q12H KELIN gabapentin, 400 mg, oral, Q8H metoprolol (LOPRESSOR) tablet/capsule, 25 mg, oral, Q6H KELIN pantoprazole DR, 40 mg, oral, Daily polyethylene glycol, 17 g, oral, Daily primidone, 50 mg, oral, BID senna, 1 tablet, oral, BID Continuous Medications: PRN Medications: albuterol HFA ??? HYDROmorphone ??? oxyCODONE Objective Vitals: 24hr Min/Max: Temp Min: 37 ??C (98.6 ??F) Max: 38.4 ??C (101.1 ??F) Pulse Min: 91 Max: 135 BP Min: 100/62 Max: 144/44 Resp Min: 14 Max: 26 SpO2 Min: 96 % Max: 100 % Most Recent : Vitals: 07/02/19 0810 BP: Pulse: 100 Resp: Temp: SpO2: I/O last 2 completed shifts: In: 120 [I.V.:100; IV Piggyback:20] Out: 780 [Urine:780] I/O this shift: In: - Out: 475 [Urine:475] Dietary Orders (From admission, onward) Start Ordered 07/02/19 075 Adult Diet Regular Diet effective now Question: ([facility]) Diet type Answer: Regular 07/02/19 0753 Physical Exam: General: NAD HEENT: tracks appropriately CV: tachycardic Pulm: normal work of breathing ABd: No drains in place Skin: warm and dry Psych: interacts appropriately Neuro: sensation to soft touch in all extremities Motor: move all 4 extremities to command. Lab/Radiology/Diagnostic Review: Recent Labs Lab Units 07/01/19 2114 WBC K/cumm 17.4* HEMOGLOBIN g/dL 7.6* HEMATOCRIT % 23.6* PLATELETS K/cumm 174 Recent Labs Lab Units 06/30/19 1621 PROTIME (PT) sec 12.8 INR 1.2 Recent Labs Lab Units 07/01/19 2114 CREATININE mg/dL 0.96 Recent Labs Lab Units 06/30/19 2206 PH ART 7.40 PCO2 ART mmHg 42 PO2 ART mmHg 107 HCO3 ART (CALC) mmol/L 27 BASE EXC ART mmol/L 1 O2 SAT ART (GORGE) % 98* Assessment/Plan 1. Pain well controlled. - Continue regimen as written. Continue to encourage weaning of dilaudid by patient. If needed, would be reasonable to increase oxycodone to 10mg q 3hrs or to 15mg q3hrs. - Patient continues on baclofen 5mg BID vs. 10mg QID. Recommend continuing baclofen at 5mg BID through today and then decrease to 2.5mg TID tomorrow, which is her max dose based on her CrCl. - Patient asking about trazodone for sleep. While we do not typically manage sleep medications, we recommend avoiding trazodone in this patient given CKD. We will sign off. Please call if questions. Blayne Aguilar MD Cosigned by Adithya Clark MD at 07/02/2019 11:38 AM HOME SALES SERVICE PROFESSIONAL SALES SERVICE PROFESSIONAL SALES SERVICE PROFESSIONAL Associated attestation - Adithya Clark MD - 07/02/2019 11:38 AM HOME SALES SERVICE PROFESSIONAL I have seen and examined the patient on 07/02/19. I agree with the findings and plan of care as documented in the resident's/fellow's note. * Milo Forrester MD - 07/02/2019 8:34 AM CST Images from the original note were not included. Orthopaedic Trauma Service Daily Progress Note Subjective 68 y.o. female now POD2 s/p repeat I&D, revision ORIF L T3 open PP tib / fib shaft fx, R medialmal ankle fx AF tachy to 110s o/w VSS. Tx out of the SICU o/n. 7.6 / 23.6 Cr 0.96. iVAC holding suction. RLE: splint cdi, mild decr spn (baseline neuropathy). LLE: HKB locked in ext. decreased sensation globally (baseline neuropathy). Flicker fires fhl, flexes / extends toes, no ehl, unable to fire ta/gc. Tertiary negative. iVac down POD5. Current Facility-Administered Medications Medication Dose Route Frequency Last Rate Last Dose ??? acetaminophen (TYLENOL) tablet 1,000 mg 1,000 mg oral Q6H KELIN 1,000 mg at 07/02/19 0535 ??? albuterol HFA (PROVENTIL HFA,VENTOLIN HFA,PROAIR HFA) 90 mcg/actuation inhaler 2 puff 2 puff inhalation Q6H PRN (RT) ??? atorvastatin (LIPITOR) tablet 10 mg 10 mg oral Nightly 10 mg at 07/01/192123 ??? baclofen (LIORESAL) tablet 5 mg 5 mg oral BID with meals (bkfst, dinner) 5 mg at 07/01/19 1800 ??? cyclobenzaprine (FLEXERIL) tablet 10 mg 10 mg oral TID 10 mg at 07/01/192123 ??? docusate sodium (DOK) tablet 100 mg 100 mg oral BID 100 mg at 07/01/192123 ??? enoxaparin (LOVENOX) syringe 40 mg 40 mg subcutaneous Q12H KELIN 40 mg at 07/01/192122 ??? gabapentin (NEURONTIN) capsule 400 mg 400 mg oral Q8H 400 mg at 07/02/19 0405 ??? HYDROmorphone (DILAUDID) injection 0.25 mg 0.25 mg intravenous Q4H PRN 0.25 mg at 07/01/19 1633 ??? metoprolol (LOPRESSOR) tablet 25 mg 25 mg oral Q6H KELIN 25 mg at 07/02/19 0536 ??? oxyCODONE (ROXICODONE) tablet 10 mg 10 mg oral Q4H PRN 10 mg at 07/02/19 0535 ??? pantoprazole DR (PROTONIX) extended release tablet 40 mg 40 mg oral Daily ??? polyethylene glycol (MIRALAX) packet 17 g 17 g oral Daily 17 g at 07/01/19 0814 ??? primidone (MYSOLINE) tablet 50 mg 50 mg oral BID 50 mg at 07/01/192123 ??? senna (SENOKOT) tablet 1 tablet 1 tablet oral BID 1 tablet at 07/01/192123 Objective Vitals: 24hr Min/Max: Temp Min: 37 ??C (98.6 ??F) Max: 38.4 ??C (101.1 ??F) Pulse Min: 91 Max: 135 BP Min: 100/62 Max: 144/44 Resp Min: 13 Max: 26 SpO2 Min: 96 % Max: 100 % I/O last 2 completed shifts: In: 120 [I.V.:100; IV Piggyback:20] Out: 780 [Urine:780] I/O this shift: In: - Out: 475 [Urine:475] Physical Exam: Gen: NAD Neuro: A&Ox3 Resp: NLB CV: regular rate by palpation of peripheral pulses MSK: In no acute distress. Alert and oriented ?? 3. Normal respirations, no dyspnea with speaking. RUE: No obvious deformity, skin intact, no ecchymosis No tenderness to palpation, able to range shoulder/elbow/wrist w/o pain Motor and sensation intact to SILT M/U/R/A nerve distributions 2+radial pulse Fingers WWP, BCR <2 seconds LUE No obvious deformity, skin intact, no ecchymosis No tenderness to palpation, able to range shoulder/elbow/wrist w/o pain Motor and sensation intact to SILT M/U/R/A nerve distributions 2+radial pulse Fingers WWP, BCR <2 seconds RLE: splint cdi, mild decr spn (baseline neuropathy). LLE: HKB locked in ext. decreased sensation globally (baseline neuropathy). Flicker fires fhl, flexes / extends toes, no ehl, unable to fire ta/gc. LLE decreased sensation globally (baseline neuropathy) Flicker fires fhl, flexes / extends toes, no ehl, unable to fire ta/gc. iVac down POD5. Toes wwp HKB in place and locked in extension Labs: Hematology Lab History Some values may be hidden. Unless noted otherwise, only the newest values recorded on each date aredisplayed. Labs - Hematology Latest Ref Range 06/28/19 06/29/19 06/30/19 07/01/19 WBC 3.8 - 9.9 K/cumm 20.3 (A) 14.7 (A) 16.5 (A) 17.4 (A) Total Hb, POC 11.9 - 15.5 g/dL 7.9 (A) 6.5 (A) 8.2 (A) 7.6 (A) Hct 35.6 - 45.5 % 26.4 (A) 20.2 (A) 25.5 (A) 23.6 (A) Plt 150 - 400 K/cumm 188 173 166 174 Neutrophil abs 1.7 - 6.5 K/cumm 15.4 (A) 8.8 (A) 8.8 (A) Some values recorded on this date have been omitted. Some abnormal values recorded on this date have been omitted. (A) Abnormal value Chem/LFT Lab History Some values may be hidden. Unless noted otherwise, only the newest values recorded on each date aredisplayed. Labs-Chem/LFT Latest Ref Range 06/28/19 06/29/19 06/30/19 07/01/19 Sodium 135 - 145 mmol/L 141 (C) 139 139 135 Potassium Lvl BUN Creatinine 0.60 - 1.10 mg/dL 1.50 (A) (C) 1.14 (A) 0.95 0.96 Bilirubin, total 0.1 - 1.2 mg/dL 0.2 (C) AST 10 - 45 Units/L 43 (C) ALT 7 - 45 Units/L 41 (C) CrCl- Actual Body Weight (Cockcroft-Gault) 62.4 87.4 104.8 103.7 Some values recorded on this date have been omitted. Some abnormal values recorded on this date have been omitted. (A) Abnormal value (C) Corrected value Comments are available for some flowsheets but are not being displayed. Assessment/Plan Celestina Ewing is a 68 y.o. female who is POD 4 s/p I&D ORIF L proximal tibia periprosthetic fx. Now POD2 s/p POD1 s/p repeat I&D, revision ORIF L T3 open PP tib / fib shaft fx, R medial mal ankle fx. PLAN: 1. NWB BLE 1. LLE in HKB locked in extension 2. RLE in SLS 2. DVT ppx w/ SCDs, lovenox 40 qpm 3. LUAN - CTM 4. Anemia: transfusion goal 7 5. iVAC will come down POD5 for skin check 6. tertiary exam negative 7. PT/OT/OOB 8. Appreciate critical care help Milo Forrester MD Department of Orthopaedic Surgery [facility] in [place] If questions arise overnight, the OTS team can be reached at: [phone] (Floor Resident ) [phone] (Consult Resident) SALES SERVICE PROFESSIONAL SALES SERVICE PROFESSIONAL * Rosie Jay MD - 07/01/2019 4:50 PM CST [facility] Trauma Surgery ICU Daily Progress Subjective Patient is a 68 y.o. female admitted on 06/28/2019 4:47 PM with chief complaint of Chief Complaint Patient presents with ??? Fall Interval History: No acute events overnight. Pain is poorly controlled this morning and pt is tachycardic. Objective Physical Exam: GENERAL: WDWN NEURO: alert and appropriately interactive, moves all 4 extremities to command with no gross sensory deficits PSYCH: appropriate mood and affect HEENT: normocephalic, atraumatic, neck supple, trachea midline RESP: breathing non-labored, equal chest rise and fall CARDIO: sinus tachycardia ABDOMEN: Soft, nondistended Ext: BLE casted. Active and Removed Drain / Nasogastric/Orogastric tube / Rectal tube / Gastrostomy/Enterostomy / Chest tube NG/OG Tube Orogastric Left mouth 1 day Urethral Catheter Temperature probe;Double-lumen 16 Fr. less than 1 day Vital signs for last 24 hours: Temp: [36.5 ??C (97.7 ??F)-38.4 ??C (101.1 ??F)] 38.1 ??C (100.6 ??F) Pulse: [101-138] 112 BP: (90-144)/(44-100) 126/57 Resp: [13-26] 18 SpO2: [90 %-100 %] 100 % FiO2 (%): [40 %] 40 % Hemodynamics: MAP (mmHg): [58-107] 73 Pulmonary Support: O2 Therapy: Supplemental oxygen O2 Del Method: Nasal cannula FiO2 (%): 40 % O2 Flow Rate (L/min): 3 L/min Adult Vent Mode: Pressure support Ventilation FiO2 (%): 40 % S RR: 22 PEEP/CPAP/EPAP (cm H2O): 5 cm H20 Pressure Support (cm H2O): 5 cm H20 Intake/Output: I/O this shift: In: 120 [I.V.:100; IV Piggyback:20] Out: 485 [Urine:485] Lab/Radiology/Diagnostic Review: Recent Results (from the past 72 hour(s)) CBC with auto differential Collection Time: 06/28/19 5:02 PM Result Value Ref Range WBC 6.7 3.8 - 9.9 K/cumm Hgb 9.0 (L) 11.9 - 15.5 g/dL Hct 24.2 (L) 35.6 - 45.5 % Plt 195 150 - 400 K/cumm MPV 11.1 9.1 - 12.3 fL RBC 2.57 (L) 3.90 - 5.20 M/cumm MCV 94.2 81.3 - 96.4 fL MCH 35.0 (H) 27.1 - 33.3 pg MCHC 37.2 (H) 32.3 - 35.7 g/dL RDW CV 26.7 (H) 11.1 - 14.9 % RDW SD 69.5 (H) 35.7 - 48.1 fL NRBC abs 0.04 (H) 0.00 - 0.01 K/cumm Comprehensive metabolic panel Collection Time: 06/28/19 5:02 PM Result Value Ref Range Sodium 141 135 - 145 mmol/L Potassium, pl 6.9 (Critical) 3.3 - 4.9 mmol/L Chloride 103 97 - 110 mmol/L CO2 29 22 - 32 mmol/L Anion gap 9 2 - 15 mmol/L BUN 38 (H) 8 - 25 mg/dL Creatinine 1.50 (H) 0.60 - 1.10 mg/dL Glucose 211 (H) 70 - 199 mg/dL Calcium 8.8 8.5 - 10.3 mg/dL Bilirubin, total 0.2 0.1 - 1.2 mg/dL Protein, pl 6.2 (L) 6.5 - 8.5 g/dL Albumin 3.6 3.5 - 5.0 g/dL Alk phos 77 40 - 130 Units/L ALT 41 7 - 45 Units/L AST 43 10 - 45 Units/L Type and screen Collection Time: 06/28/19 5:02 PM Result Value Ref Range Triston, indirect Negative Protime-INR Collection Time: 06/28/19 5:02 PM Result Value Ref Range PT 12.1 8.6 - 13.0 sec INR 1.1 0.8 - 1.2 aPTT Collection Time: 06/28/19 5:02 PM Result Value Ref Range aPTT 25 25 - 37 sec VerifyNow aspirin Collection Time: 06/28/19 5:02 PM Result Value Ref Range VerifyNow aspirin 609 ARU Differential, auto Collection Time: 06/28/19 5:02 PM Result Value Ref Range Neutrophil abs 3.0 1.7 - 6.5 K/cumm Imm gran abs 0.2 (H) 0.0 - 0.1 K/cumm Lymphocyte abs 3.1 0.8 - 3.3 K/cumm Monocyte abs 0.3 0.2 - 0.8 K/cumm Eosinophil abs 0.1 0.0 - 0.5 K/cumm Basophil abs 0.0 0.0 - 0.1 K/cumm Neutrophil pct 44.6 % Imm gran pct 2.5 % Lymphocyte pct 46.5 % Monocyte pct 5.1 % Eosinophil pct 0.9 % Basophil pct 0.4 % Critical Result Callback Chemistry Collection Time: 06/28/19 5:02 PM Result Value Ref Range Date Notified [id number] Time Notified 1815 TestName Potassium Called/Read Back Mago BEJARANO Credentials RN Called By Katelynn Hanley Creatine kinase (CK), total Collection Time: 06/28/19 5:02 PM Result Value Ref Range CK 81 30 - 200 Units/L Ethanol Collection Time: 06/28/19 5:02 PM Result Value Ref Range Ethanol <10 <=10 mg/dL Troponin I Collection Time: 06/28/19 5:02 PM Result Value Ref Range Troponin I <0.03 0.00 - 0.03 ng/mL POCT glucose Collection Time: 06/28/19 5:18 PM Result Value Ref Range Glucose, POC 161 70 - 199 mg/dL POCT lactate Collection Time: 06/28/19 5:23 PM Result Value Ref Range Lactate POC i-STAT 1.5 0.7 - 2.2 mmol/L POCT creatinine Collection Time: 06/28/19 5:27 PM Result Value Ref Range Creatinine POC 1.4 (H) 0.6 - 1.1 mg/dL Blood gas, venous Collection Time: 06/28/19 5:35 PM Result Value Ref Range pH, Venous 7.27 (L) 7.32 - 7.43 PCO2, Venous 63 (H) 40 - 50 mmHg PO2, Venous 30 mmHg HCO3 Venous, Calculated 30 20 - 30 mmol/L BE, venous 1 mmol/L Thrombocyte inhibited fibrinogen (FIBTEM) Collection Time: 06/28/19 5:35 PM Result Value Ref Range Maximum Clot Firm-Fibrinogen 12 9 - 29 mm Extrensic thromboelastometry (EXTEM) Collection Time: 06/28/19 5:35 PM Result Value Ref Range Clotting Time-Extrinsic 81 (H) 42 - 60 sec Clot Formation Time-Extrinsic 145 (H) 45 - 131 sec Angle-Extrinsic 62 (L) 65 - 83 Degree Max Clot Firmness-Extrinsic 51 (L) 53 - 75 mm Lysis 30-Extrinsic 100 85 - 100 % Urinalysis reflex to microscopic and culture Urine, indwelling catheter Collection Time: 06/28/19 6:54 PM Result Value Ref Range Color, ur Yellow Yellow Clarity, ur Clear Clear Specific gravity, ur 1.013 1.010 - 1.025 pH, urine 6 Protein, ur ql 1+ (A) Negative Glucose, ur ql Negative Negative Ketones, ur Negative Negative Bilirubin, ur Negative Negative Blood, ur Negative Negative Urobilinogen, ur <2.0 <2.0 mg/dL Nitrite, ur Negative Negative Leukocyte esterase, ur 1+ (A) Negative UA reflex comment Reflex to microscopic UA will be performed. Drugs of Abuse Screen, Urine with Reflex Confirmation Collection Time: 06/28/19 6:54 PM Result Value Ref Range Amphetamine, ur Not Detected CutOff 500ng/mL Barbiturates, ur Detected (A) CutOff 200ng/mL Benzodiazepines, ur Not Detected CutOff 100ng/mL Cannabinoids, ur Not Detected CutOff 50 ng/mL Cocaine, ur Not Detected CutOff 150ng/mL Fentanyl, Ur Detected (A) Cutoff 1 ng/mL Methadone, ur Not Detected CutOff 300ng/mL Opiates, ur Detected (A) CutOff 300ng/mL Oxycodone, ur Not Detected CutOff 100ng/mL Phencyclidine, ur Not Detected CutOff 25 ng/mL Urine Creatinine 42 mg/dL Blood gas, arterial Collection Time: 06/28/19 6:54 PM Result Value Ref Range pH, Art POC 7.45 7.35 - 7.45 PCO2, Arterial 39 35 - 45 mmHg PO2, Arterial 192 (H) 83 - 108 mmHg HCO3 Art (Calculated) 28 20 - 30 mmol/L BE, art 3 mmol/L O2 Sat Art (Measured) 99 (H) 90 - 95 % Potassium, whole blood Collection Time: 06/28/19 6:54 PM Result Value Ref Range Potassium, bld 5.6 (H) 3.3 - 4.9 mmol/L Urinalysis, microscopic only Collection Time: 06/28/19 6:54 PM Result Value Ref Range WBC, ur 6-10 (A) 0 - 5 /HPF RBC, ur 0-2 0 - 2 /HPF Hyaline casts, ur 11-20 (A) 0 - 10 /LPF Culture Reflex Comment Reflex conditions for urine culture (WBC >10) not met. Fentanyl Confirmation, Urine Collection Time: 06/28/19 6:54 PM Result Value Ref Range Fentanyl Conf, Ur Confirmed Positive Cutoff 1 ng/mL Acetylfentanyl Conf, Ur Does Not Confirm CutOff 2 ng/mL Acrylfentanyl Conf, Ur Does Not Confirm CutOff 2 ng/mL Furanylfentanyl Conf, Ur Does Not Confirm CutOff 2 ng/mL Fentanyl Metabolite (Norfentanyl) Conf, Ur Does Not Confirm CutOff 10 ng/mL Opiates Confirmation, Urine Collection Time: 06/28/19 6:54 PM Result Value Ref Range Codeine Conf, Ur Does Not Confirm CutOff 50 ng/mL 6- Acetylmorphine Conf, Ur Does Not Confirm CutOff 10 ng/mL Oxycodone Conf, Ur Does Not Confirm CutOff 50 ng/mL Hydrocodone Conf, Ur Confirmed Positive CutOff 50 ng/mL Morphine Conf, Ur Confirmed Positive CutOff 50 ng/mL Hydromorphone Conf, Ur Does Not Confirm CutOff 50 ng/mL Oxymorphone Conf, Ur Does Not Confirm CutOff 50 ng/mL POCT hCG, urine Collection Time: 06/28/19 7:23 PM Result Value Ref Range HCG, ur, POC Negative Lot Number [id number] QC Backgroud Clear Acceptable QC Control Line Acceptable POCT glucose Collection Time: 06/28/19 7:31 PM Result Value Ref Range Glucose, POC 176 70 - 199 mg/dL POCT glucose Collection Time: 06/28/19 8:26 PM Result Value Ref Range Glucose, POC 267 (H) 70 - 199 mg/dL CBC with auto differential Collection Time: 06/28/19 8:42 PM Result Value Ref Range WBC 20.3 (H) 3.8 - 9.9 K/cumm Hgb 8.5 (L) 11.9 - 15.5 g/dL Hct 26.4 (L) 35.6 - 45.5 % Plt 188 150 - 400 K/cumm MPV 11.3 9.1 - 12.3 fL RBC 3.07 (L) 3.90 - 5.20 M/cumm MCV 86.0 81.3 - 96.4 fL MCH 27.7 27.1 - 33.3 pg MCHC 32.2 (L) 32.3 - 35.7 g/dL RDW CV 20.5 (H) 11.1 - 14.9 % RDW SD 63.5 (H) 35.7 - 48.1 fL NRBC abs 0.02 (H) 0.00 - 0.01 K/cumm Differential, auto Collection Time: 06/28/19 8:42 PM Result Value Ref Range Neutrophil abs 15.4 (H) 1.7 - 6.5 K/cumm Imm gran abs 0.6 (H) 0.0 - 0.1 K/cumm Lymphocyte abs 2.8 0.8 - 3.3 K/cumm Monocyte abs 1.2 (H) 0.2 - 0.8 K/cumm Eosinophil abs 0.2 0.0 - 0.5 K/cumm Basophil abs 0.1 0.0 - 0.1 K/cumm Neutrophil pct 76.0 % Imm gran pct 3.1 % Lymphocyte pct 13.9 % Monocyte pct 5.8 % Eosinophil pct 0.9 % Basophil pct 0.3 % Prepare RBC Collection Time: 06/28/19 8:51 PM Result Value Ref Range Product code U3575R97 Unit Number [id number] Product Blood Type ONEG Dispense Status RETURNED Product code P5074T20 Unit Number [id number] Product Blood Type OPOS Dispense Status RETURNED Product code F4679C05 Unit Number [id number] Product Blood Type ONEG Dispense Status RETURNED Product code Y1061G55 Unit Number [id number] Product Blood Type OPOS Dispense Status RETURNED Product code K3506C01 Unit Number [id number] Product Blood Type OPOS Dispense Status PRESUMED TRANSFUSED Product code Y0134Q87 Unit Number [id number] Product Blood Type OPOS Dispense Status PRESUMED TRANSFUSED Product code T8275X07 Unit Number [id number] Product Blood Type APOS Dispense Status RETURNED Prepare RBC: 2 Units Collection Time: 06/28/19 9:18 PM Result Value Ref Range Product code D1578W85 Unit Number [id number] Product Blood Type OPOS Dispense Status RETURNED Product code Q1243Q59 Unit Number [id number] Product Blood Type OPOS Dispense Status RETURNED POCT glucose Collection Time: 06/28/19 9:39 PM Result Value Ref Range Glucose, POC 274 (H) 70 - 199 mg/dL Type and screen Collection Time: 06/28/19 10:02 PM Result Value Ref Range ABO Rh A Positive Triston, indirect Negative POC Blood Gas and Chemistries, Venous - Collection Time: 06/28/19 10:25 PM Result Value Ref Range pH, Rj POC 7.35 7.32 - 7.43 pCO2, Rj POC 52 (H) 40 - 50 mmHg pO2, Rj POC 29 mmHg Na, POC 138 135 - 145 mmol/L K, POC 4.9 3.3 - 4.9 mmol/L Cl, POC 102 97 - 110 mmol/L Ionized Ca, POC 5.38 (H) 4.50 - 5.10 mg/dL Glucose, POC 236 (H) 70 - 199 mg/dL Lactate, POC 3.3 (H) 0.7 - 2.2 mmol/L O2 Sat, Rj POC (Gorge) 52 % Base Excess, POC 2.1 mmol/L HCO3, Rj POC 29 20 - 30 mmol/L Hct, POC 24.0 (L) 36.3 - 45.3 % Total Hb, POC 7.9 (L) 11.9 - 15.5 g/dL O2 Sat, Rj POC (Calc) 51 % Check Sample Collection Time: 06/28/19 10:33 PM Result Value Ref Range ABO Rh A Positive POCT glucose Collection Time: 06/28/19 11:33 PM Result Value Ref Range Glucose, POC 228 (H) 70 - 199 mg/dL Glucose comment 1 RN Notified Beta-hydroxybutyrate Collection Time: 06/29/19 12:00 AM Result Value Ref Range Beta-Hydroxybutyrate 0.1 0.0 - 0.5 mmol/L CBC with auto differential Collection Time: 06/29/19 12:00 AM Result Value Ref Range WBC 21.3 (H) 3.8 - 9.9 K/cumm Hgb 8.5 (L) 11.9 - 15.5 g/dL Hct 26.0 (L) 35.6 - 45.5 % Plt 225 150 - 400 K/cumm MPV 11.1 9.1 - 12.3 fL RBC 3.02 (L) 3.90 - 5.20 M/cumm MCV 86.1 81.3 - 96.4 fL MCH 28.1 27.1 - 33.3 pg MCHC 32.7 32.3 - 35.7 g/dL RDW CV 20.8 (H) 11.1 - 14.9 % RDW SD 63.0 (H) 35.7 - 48.1 fL NRBC abs 0.02 (H) 0.00 - 0.01 K/cumm Magnesium Collection Time: 06/29/19 12:00 AM Result Value Ref Range Magnesium 1.5 1.4 - 2.5 mg/dL Phosphorus Collection Time: 06/29/19 12:00 AM Result Value Ref Range Phosphorus, pl 2.8 2.3 - 4.5 mg/dL Basic metabolic panel Collection Time: 06/29/19 12:00 AM Result Value Ref Range Sodium 137 135 - 145 mmol/L Potassium, pl 5.1 (H) 3.3 - 4.9 mmol/L Chloride 102 97 - 110 mmol/L CO2 26 22 - 32 mmol/L Anion gap 9 2 - 15 mmol/L BUN 38 (H) 8 - 25 mg/dL Creatinine 1.41 (H) 0.60 - 1.10 mg/dL Glucose 198 70 - 199 mg/dL Calcium 9.7 8.5 - 10.3 mg/dL Potassium, whole blood Collection Time: 06/29/19 12:00 AM Result Value Ref Range Potassium, bld 4.6 3.3 - 4.9 mmol/L Calcium, ionized Collection Time: 06/29/19 12:00 AM Result Value Ref Range Calcium, Ionized 4.75 4.50 - 5.10 mg/dL Blood gas, arterial Collection Time: 06/29/19 12:00 AM Result Value Ref Range pH, Art POC 7.46 (H) 7.35 - 7.45 PCO2, Arterial 36 35 - 45 mmHg PO2, Arterial 71 (L) 83 - 108 mmHg HCO3 Art (Calculated) 27 20 - 30 mmol/L BE, art 3 mmol/L O2 Sat Art (Measured) 95 90 - 95 % Lactate, whole blood Collection Time: 06/29/19 12:00 AM Result Value Ref Range Lactate, bld 3.1 (H) 0.7 - 2.0 mmol/L Infection Prevention MRSA Only (Staphylococcus aureus) Culture Nasal Collection Time: 06/29/19 12:00 AM Result Value Ref Range Report Final Report: Negative Differential, auto Collection Time: 06/29/19 12:00 AM Result Value Ref Range Neutrophil abs 16.5 (H) 1.7 - 6.5 K/cumm Imm gran abs 0.6 (H) 0.0 - 0.1 K/cumm Lymphocyte abs 2.7 0.8 - 3.3 K/cumm Monocyte abs 1.4 (H) 0.2 - 0.8 K/cumm Eosinophil abs 0.1 0.0 - 0.5 K/cumm Basophil abs 0.1 0.0 - 0.1 K/cumm Neutrophil pct 77.7 % Imm gran pct 2.6 % Lymphocyte pct 12.7 % Monocyte pct 6.4 % Eosinophil pct 0.3 % Basophil pct 0.3 % Valproic acid level, total Collection Time: 06/29/19 12:00 AM Result Value Ref Range Valproic Acid <15.0 (L) 50.0 - 100.0 mcg/mL POCT glucose Collection Time: 06/29/19 12:02 AM Result Value Ref Range Glucose, POC 195 70 - 199 mg/dL POCT glucose Collection Time: 06/29/19 1:16 AM Result Value Ref Range Glucose, POC 205 (H) 70 - 199 mg/dL POCT glucose Collection Time: 06/29/19 1:54 AM Result Value Ref Range Glucose, POC 194 70 - 199 mg/dL POCT glucose Collection Time: 06/29/19 3:01 AM Result Value Ref Range Glucose, POC 192 70 - 199 mg/dL POCT glucose Collection Time: 06/29/19 3:57 AM Result Value Ref Range Glucose, POC 187 70 - 199 mg/dL POCT glucose Collection Time: 06/29/19 5:04 AM Result Value Ref Range Glucose, POC 166 70 - 199 mg/dL CBC with auto differential Collection Time: 06/29/19 5:07 AM Result Value Ref Range WBC 21.0 (H) 3.8 - 9.9 K/cumm Hgb 7.8 (L) 11.9 - 15.5 g/dL Hct 24.5 (L) 35.6 - 45.5 % Plt 249 150 - 400 K/cumm MPV 11.4 9.1 - 12.3 fL RBC 2.88 (L) 3.90 - 5.20 M/cumm MCV 85.1 81.3 - 96.4 fL MCH 27.1 27.1 - 33.3 pg MCHC 31.8 (L) 32.3 - 35.7 g/dL RDW CV 20.4 (H) 11.1 - 14.9 % RDW SD 61.4 (H) 35.7 - 48.1 fL NRBC abs 0.05 (H) 0.00 - 0.01 K/cumm Lactate, whole blood Collection Time: 06/29/19 5:07 AM Result Value Ref Range Lactate, bld 3.9 (H) 0.7 - 2.0 mmol/L Differential, auto Collection Time: 06/29/19 5:07 AM Result Value Ref Range Neutrophil abs 15.2 (H) 1.7 - 6.5 K/cumm Imm gran abs 0.4 (H) 0.0 - 0.1 K/cumm Lymphocyte abs 3.5 (H) 0.8 - 3.3 K/cumm Monocyte abs 1.8 (H) 0.2 - 0.8 K/cumm Eosinophil abs 0.0 0.0 - 0.5 K/cumm Basophil abs 0.0 0.0 - 0.1 K/cumm Neutrophil pct 72.7 % Imm gran pct 2.1 % Lymphocyte pct 16.5 % Monocyte pct 8.4 % Eosinophil pct 0.1 % Basophil pct 0.2 % POCT glucose Collection Time: 06/29/19 6:15 AM Result Value Ref Range Glucose, POC 170 70 - 199 mg/dL POCT glucose Collection Time: 06/29/19 7:02 AM Result Value Ref Range Glucose, POC 169 70 - 199 mg/dL POCT glucose Collection Time: 06/29/19 8:05 AM Result Value Ref Range Glucose, POC 134 70 - 199 mg/dL POCT glucose Collection Time: 06/29/19 9:06 AM Result Value Ref Range Glucose, POC 130 70 - 199 mg/dL POCT glucose Collection Time: 06/29/19 10:05 AM Result Value Ref Range Glucose, POC 113 70 - 199 mg/dL POCT glucose Collection Time: 06/29/19 11:13 AM Result Value Ref Range Glucose, POC 116 70 - 199 mg/dL POCT glucose Collection Time: 06/29/19 12:07 PM Result Value Ref Range Glucose, POC 138 70 - 199 mg/dL POCT glucose Collection Time: 06/29/19 1:15 PM Result Value Ref Range Glucose, POC 133 70 - 199 mg/dL POCT glucose Collection Time: 06/29/19 1:58 PM Result Value Ref Range Glucose, POC 121 70 - 199 mg/dL POCT glucose Collection Time: 06/29/19 4:00 PM Result Value Ref Range Glucose, POC 112 70 - 199 mg/dL POCT glucose Collection Time: 06/29/19 4:57 PM Result Value Ref Range Glucose, POC 58 (L) 70 - 199 mg/dL POCT glucose Collection Time: 06/29/19 4:58 PM Result Value Ref Range Glucose, POC 113 70 - 199 mg/dL Gentamicin level, trough Collection Time: 06/29/19 4:59 PM Result Value Ref Range Gentamicin, Trough 1.6 0.1 - 2.0 mcg/mL POCT glucose Collection Time: 06/29/19 5:44 PM Result Value Ref Range Glucose, POC 166 70 - 199 mg/dL POCT glucose Collection Time: 06/29/19 5:45 PM Result Value Ref Range Glucose, POC 133 70 - 199 mg/dL POCT glucose Collection Time: 06/29/19 7:13 PM Result Value Ref Range Glucose, POC 146 70 - 199 mg/dL POCT glucose Collection Time: 06/29/19 7:54 PM Result Value Ref Range Glucose, POC 144 70 - 199 mg/dL POCT glucose Collection Time: 06/29/19 9:17 PM Result Value Ref Range Glucose, POC 128 70 - 199 mg/dL CBC with auto differential Collection Time: 06/29/19 10:35 PM Result Value Ref Range WBC 15.3 (H) 3.8 - 9.9 K/cumm Hgb 6.4 (Critical) 11.9 - 15.5 g/dL Hct 19.9 (L) 35.6 - 45.5 % Plt 178 150 - 400 K/cumm MPV 10.8 9.1 - 12.3 fL RBC 2.36 (L) 3.90 - 5.20 M/cumm MCV 84.3 81.3 - 96.4 fL MCH 27.1 27.1 - 33.3 pg MCHC 32.2 (L) 32.3 - 35.7 g/dL RDW CV 20.6 (H) 11.1 - 14.9 % RDW SD 62.4 (H) 35.7 - 48.1 fL NRBC abs 0.05 (H) 0.00 - 0.01 K/cumm Basic metabolic panel Collection Time: 06/29/19 10:35 PM Result Value Ref Range Sodium 139 135 - 145 mmol/L Potassium, pl 4.6 3.3 - 4.9 mmol/L Chloride 105 97 - 110 mmol/L CO2 30 22 - 32 mmol/L Anion gap 4 2 - 15 mmol/L BUN 22 8 - 25 mg/dL Creatinine 1.14 (H) 0.60 - 1.10 mg/dL Glucose 145 70 - 199 mg/dL Calcium 8.3 (L) 8.5 - 10.3 mg/dL Magnesium Collection Time: 06/29/19 10:35 PM Result Value Ref Range Magnesium 1.7 1.4 - 2.5 mg/dL Differential, auto Collection Time: 06/29/19 10:35 PM Result Value Ref Range Neutrophil abs 8.8 (H) 1.7 - 6.5 K/cumm Imm gran abs 0.2 (H) 0.0 - 0.1 K/cumm Lymphocyte abs 4.7 (H) 0.8 - 3.3 K/cumm Monocyte abs 1.6 (H) 0.2 - 0.8 K/cumm Eosinophil abs 0.1 0.0 - 0.5 K/cumm Basophil abs 0.0 0.0 - 0.1 K/cumm Neutrophil pct 57.3 % Imm gran pct 1.2 % Lymphocyte pct 30.8 % Monocyte pct 10.1 % Eosinophil pct 0.4 % Basophil pct 0.2 % Phosphorus Collection Time: 06/29/19 10:35 PM Result Value Ref Range Phosphorus, pl 3.5 2.3 - 4.5 mg/dL CBC without differential Collection Time: 06/29/19 11:23 PM Result Value Ref Range WBC 14.7 (H) 3.8 - 9.9 K/cumm Hgb 6.5 (L) 11.9 - 15.5 g/dL Hct 20.2 (L) 35.6 - 45.5 % Plt 173 150 - 400 K/cumm MPV 11.4 9.1 - 12.3 fL RBC 2.39 (L) 3.90 - 5.20 M/cumm MCV 84.5 81.3 - 96.4 fL MCH 27.2 27.1 - 33.3 pg MCHC 32.2 (L) 32.3 - 35.7 g/dL RDW CV 20.6 (H) 11.1 - 14.9 % RDW SD 63.5 (H) 35.7 - 48.1 fL NRBC abs 0.04 (H) 0.00 - 0.01 K/cumm POCT glucose Collection Time: 06/29/19 11:46 PM Result Value Ref Range Glucose, POC 136 70 - 199 mg/dL Prepare RBC: 1 Units Collection Time: 06/30/19 12:45 AM Result Value Ref Range Product code [id number] Unit Number [id number] Product Blood Type APOS Dispense Status PRESUMED TRANSFUSED POCT glucose Collection Time: 06/30/19 3:36 AM Result Value Ref Range Glucose, POC 126 70 - 199 mg/dL CBC without differential Collection Time: 06/30/19 4:35 AM Result Value Ref Range WBC 17.1 (H) 3.8 - 9.9 K/cumm Hgb 8.0 (L) 11.9 - 15.5 g/dL Hct 24.2 (L) 35.6 - 45.5 % Plt 188 150 - 400 K/cumm MPV 11.4 9.1 - 12.3 fL RBC 2.87 (L) 3.90 - 5.20 M/cumm MCV 84.3 81.3 - 96.4 fL MCH 27.9 27.1 - 33.3 pg MCHC 33.1 32.3 - 35.7 g/dL RDW CV 18.4 (H) 11.1 - 14.9 % RDW SD 55.6 (H) 35.7 - 48.1 fL NRBC abs 0.05 (H) 0.00 - 0.01 K/cumm POCT glucose Collection Time: 06/30/19 8:07 AM Result Value Ref Range Glucose, POC 140 70 - 199 mg/dL Prepare RBC: 2 Units Collection Time: 06/30/19 10:49 AM Result Value Ref Range Product code [id number] Unit Number [id number] Product Blood Type APOS Dispense Status RETURNED Product code [id number] Unit Number [id number] Product Blood Type APOS Dispense Status PRESUMED TRANSFUSED CBC with auto differential Collection Time: 06/30/19 11:27 AM Result Value Ref Range WBC 14.0 (H) 3.8 - 9.9 K/cumm Hgb 7.7 (L) 11.9 - 15.5 g/dL Hct 24.0 (L) 35.6 - 45.5 % Plt 166 150 - 400 K/cumm MPV 11.7 9.1 - 12.3 fL RBC 2.78 (L) 3.90 - 5.20 M/cumm MCV 86.3 81.3 - 96.4 fL MCH 27.7 27.1 - 33.3 pg MCHC 32.1 (L) 32.3 - 35.7 g/dL RDW CV 18.5 (H) 11.1 - 14.9 % RDW SD 57.6 (H) 35.7 - 48.1 fL NRBC abs 0.07 (H) 0.00 - 0.01 K/cumm Differential, auto Collection Time: 06/30/19 11:27 AM Result Value Ref Range Neutrophil abs 8.8 (H) 1.7 - 6.5 K/cumm Imm gran abs 0.2 (H) 0.0 - 0.1 K/cumm Lymphocyte abs 2.9 0.8 - 3.3 K/cumm Monocyte abs 1.8 (H) 0.2 - 0.8 K/cumm Eosinophil abs 0.1 0.0 - 0.5 K/cumm Basophil abs 0.0 0.0 - 0.1 K/cumm Neutrophil pct 63.4 % Imm gran pct 1.5 % Lymphocyte pct 20.8 % Monocyte pct 13.1 % Eosinophil pct 0.9 % Basophil pct 0.3 % POC Blood Gas and Chemistries, Venous - Collection Time: 06/30/19 1:27 PM Result Value Ref Range pH, Rj POC 7.36 7.32 - 7.43 pCO2, Rj POC 47 40 - 50 mmHg pO2, Rj POC 43 mmHg Na, POC 138 135 - 145 mmol/L K, POC 3.8 3.3 - 4.9 mmol/L Cl, POC 107 97 - 110 mmol/L Ionized Ca, POC 5.20 (H) 4.50 - 5.10 mg/dL Glucose, POC 132 70 - 199 mg/dL Lactate, POC 1.4 0.7 - 2.2 mmol/L O2 Sat, Rj POC ([place]orge) 74 % Base Excess, POC 0.6 mmol/L HCO3, Rj POC 27 20 - 30 mmol/L Hct, POC 23.0 (L) 36.3 - 45.3 % Total Hb, POC 7.7 (L) 11.9 - 15.5 g/dL O2 Sat, Rj POC (Calc) 76 % POCT platelet count and hematocrit Collection Time: 06/30/19 1:28 PM Result Value Ref Range Hematocrit POC 23.1 (L) 36.1 - 44.3 % Platelet POC Juan Manuel 188 140 - 440 K/cumm CBC without differential Collection Time: 06/30/19 4:21 PM Result Value Ref Range WBC 17.5 (H) 3.8 - 9.9 K/cumm Hgb 9.0 (L) 11.9 - 15.5 g/dL Hct 27.7 (L) 35.6 - 45.5 % Plt 189 150 - 400 K/cumm MPV 11.0 9.1 - 12.3 fL RBC 3.16 (L) 3.90 - 5.20 M/cumm MCV 87.7 81.3 - 96.4 fL MCH 28.5 27.1 - 33.3 pg MCHC 32.5 32.3 - 35.7 g/dL RDW CV 18.0 (H) 11.1 - 14.9 % RDW SD 57.1 (H) 35.7 - 48.1 fL NRBC abs 0.13 (H) 0.00 - 0.01 K/cumm aPTT Collection Time: 06/30/19 4:21 PM Result Value Ref Range aPTT 22 (L) 25 - 37 sec Protime-INR Collection Time: 06/30/19 4:21 PM Result Value Ref Range PT 12.8 8.6 - 13.0 sec INR 1.2 0.8 - 1.2 Lactate, whole blood Collection Time: 06/30/19 4:23 PM Result Value Ref Range Lactate, bld 1.8 0.7 - 2.0 mmol/L CBC without differential Collection Time: 06/30/19 10:06 PM Result Value Ref Range WBC 16.5 (H) 3.8 - 9.9 K/cumm Hgb 8.2 (L) 11.9 - 15.5 g/dL Hct 25.5 (L) 35.6 - 45.5 % Plt 166 150 - 400 K/cumm MPV 11.6 9.1 - 12.3 fL RBC 2.97 (L) 3.90 - 5.20 M/cumm MCV 85.9 81.3 - 96.4 fL MCH 27.6 27.1 - 33.3 pg MCHC 32.2 (L) 32.3 - 35.7 g/dL RDW CV 17.7 (H) 11.1 - 14.9 % RDW SD 54.6 (H) 35.7 - 48.1 fL NRBC abs 0.23 (H) 0.00 - 0.01 K/cumm Basic metabolic panel Collection Time: 06/30/19 10:06 PM Result Value Ref Range Sodium 139 135 - 145 mmol/L Potassium, pl 4.2 3.3 - 4.9 mmol/L Chloride 105 97 - 110 mmol/L CO2 26 22 - 32 mmol/L Anion gap 8 2 - 15 mmol/L BUN 14 8 - 25 mg/dL Creatinine 0.95 0.60 - 1.10 mg/dL Glucose 130 70 - 199 mg/dL Calcium 7.9 (L) 8.5 - 10.3 mg/dL Blood gas, arterial Collection Time: 06/30/19 10:06 PM Result Value Ref Range pH, Art POC 7.40 7.35 - 7.45 PCO2, Arterial 42 35 - 45 mmHg PO2, Arterial 107 83 - 108 mmHg HCO3 Art (Calculated) 27 20 - 30 mmol/L BE, art 1 mmol/L O2 Sat Art (Measured) 98 (H) 90 - 95 % Magnesium Collection Time: 06/30/19 10:06 PM Result Value Ref Range Magnesium 2.1 1.4 - 2.5 mg/dL POCT glucose Collection Time: 06/30/19 11:43 PM Result Value Ref Range Glucose, POC 98 70 - 199 mg/dL POCT glucose Collection Time: 07/01/19 7:41 AM Result Value Ref Range Glucose, POC 156 70 - 199 mg/dL Xr Knee Left 1 Or 2 Views Result Date: 06/28/2019 1. Open comminuted periprosthetic fracture of the proximal left tibia 2. Open comminuted fracture of the proximal left fibula 3. Mildly displaced intra- articular right medial malleolus fracture 4. Noacute pelvic fracture. Dictated by: Luh Moffett M.D. Xr Tibia Fibula Left 2 Views Result Date: 06/28/2019 1. Open comminuted periprosthetic fracture of the proximal left tibia 2. Open comminuted fracture of the proximal left fibula 3. Mildly displaced intra- articular right medial malleolus fracture 4. Noacute pelvic fracture. Dictated by: Luh Moffett M.D. Xr Tibia Fibula Right 2 Views Result Date: 06/28/2019 1. Open comminuted periprosthetic fracture of the proximal left tibia 2. Open comminuted fracture of the proximal left fibula 3. Mildly displaced intra- articular right medial malleolus fracture 4. No acute pelvic fracture. Dictated by: Luh Moffett M.D. Xr Ankle Left 3 Or More Views Result Date: 06/28/2019 1. Open comminuted periprosthetic fracture of the proximal left tibia 2. Open comminuted fracture of the proximal left fibula 3. Mildly displaced intra- articular right medial malleolus fracture 4. Noacute pelvic fracture. Dictated by: Luh Moffett M.D. Xr Ankle Right 3 Or More Views Result Date: 06/28/2019 1. Open comminuted periprosthetic fracture of the proximal left tibia 2. Open comminuted fracture of the proximal left fibula 3. Mildly displaced intra- articular right medial malleolus fracture 4. Noacute pelvic fracture. Dictated by: Luh Moffett M.D. Cta Lower Extremity Left Result Date: 06/29/2019 1. Left lower extremity: Three-vessel runoff. 2. Non-opacification of a left peroneal artery proximal segment with distal reconstitution is favored to represent focal vasospasm/stenosis secondary to extrinsic arterial compression from the surrounding muscular edema. No evidence of arterial injury. 3. Markedly comminuted, open, angulated, and displaced periprosthetic fracture of the left proximal tibia. 4. Comminuted, angulated, and displaced fracture of the left proximal fibula. 5. Marked muscular intensity adjacent edema of the distal left lower extremity. Dictated by: Mikhail Beyer Xr Chest 1 Vw Portable Result Date: 06/28/2019 1st is made to same day chest CT. There is an endotracheal tube which terminates 1.3 cm above the jesús. A gastric tube projects below the left hemidiaphragm, extending at least to the body of the stomach. Lung volumes are decreased with bibasilar atelectasis. There are right upper lung predominant opacities correlate with areas of groundglass opacity seen on CT and may represent asymmetric pulmonary edema. There is no pleural effusion or pneumothorax. Cardiomediastinal contours are within normal limits accounting for portable technique and low lung volumes. Dictated by: Luh Moffett M.D. Xr Femur Left 2 Or More Views Result Date: 06/28/2019 1. Open comminuted periprosthetic fracture of the proximal left tibia 2. Open comminuted fracture of the proximal left fibula 3. Mildly displaced intra- articular right medial malleolus fracture 4. Noacute pelvic fracture. Dictated by: Luh Moffett M.D. Ct Chest Abdomen Pelvis W Contrast Result Date: 06/28/2019 1. No acute intra-abdominal traumatic injury. 2. Scattered, biapical groundglass opacities with septal line thickening may represent mild pulmonary edema. 3. Mild bibasilar atelectasis. Dictated by: Mikhail Beyer Xr Pelvis 1 Or 2 Views Result Date: 06/28/2019 1. Open comminuted periprosthetic fracture of the proximal left tibia 2. Open comminuted fracture of the proximal left fibula 3. Mildly displaced intra- articular right medial malleolus fracture 4. Noacute pelvic fracture. Dictated by: Luh Moffett M.D. Ct Head And Cervical Spine Wo Contrast Result Date: 06/29/2019 1. No acute intracranial abnormality, such as hemorrhage. 2. No evidence of acute fracture in the cervical spine. 3. Recommend follow up of the Incidental enlarged pituitary with MRI pituitary protocol if clinically indicated. Dictated by: Adithya Murphy M.D. Trauma Surgical plan: #Acute respiratory failure -extubated, on 6L O2 -pulmonary hygiene and wean O2 as tolerated #L tibia/fibula fracture -s/p ORIF 06/28 -ortho debridement, ORIF 06/30 #R medial malleolus fracture -s/p ORIF 06/30 #acute and chronic pain -pain c/s today Rosie Jay MD MPHS General Surgery PGY-4 Cosigned by Madhav Long DO at 07/03/2019 1:28 PM HOME SAL[employer] PROFESSIONAL SALES SERVICE PROFESSIONAL SALES SERVICE PROFESSIONAL Associated attestation - Madhav Long DO - 07/03/2019 1:28 PM HOME SALES SERVICE PROFESSIONAL I have seen and examined the patient on 07/01/19. I agree with the findings and plan of care as documented in the resident's/fellow's note. * Roxanne Gomez NP - 07/01/2019 4:40 PM CST CHUGG-OUT (SICU to OU/Floor Transfer) If this patient is transferring to the medicine service, please use .SICUMED rather than .ARON to write this note. Admitting Dx: KYLER Current Problems: NWB ROGER GOMEZ Consults: [] ACCS [] Cardiology [] Endo [] ENT [] GI [] Hand [] ID [] Neuro [] NSGY [] Ortho [x] Pain [] PRS [] Renal [] Spine-NSGY [] Spine-Ortho [] Urology [] Other: Rehab/Ancillary Consults: [] BI (trauma patient with LOC) [] Chemical dependency [x] PT [x] OT [] Speech [] PM&R [] SMART (stroke patient) [] Wound care CURRENT ANTICOAGULANT THERAPY [] VTE Prophylaxis [] Heparin [x] Lovenox [] SCDs [] IVC Filter [] Other: [] None - Reason: [] Therapeutic Anticoagulation Indication: [] Heparin [] Lovenox [] Other: Any previous issues with tolerating anticoagulants? [] Yes [] No Describe: Venous duplex performed? [] Yes ---> Most recent findings: [x] No CURRENT ANTIMICROBIAL THERAPY Note - Planned duration may be a number of days or a criterion such as while drain in place or until blood cultures negative [x] N/A - No current antimicrobial therapy ??? [Antibiotic/Antimicrobial_Name] Indication: Start Date: Planned Duration: ??? [Antibiotic/Antimicrobial_Name] Indication: Start Date: Planned Duration: To insert additional antimicrobials, use the .SICUabx smart phrase. MEDICATIONS TO CONSIDER STOPPING PRIOR TO HOSPITAL DISCHARGE [] New antipsychotic (started for ICU delirium): [] Other: LINES/DRAINS/AIRWAYS PRESENT Peripheral IV 06/29/19 18 G Right Forearm (Active) Number of days: 2 Peripheral IV 06/29/19 20 G Anterior;Distal;Right;Upper Arm (Active) Number of days: 2 Urethral Catheter Temperature probe;Double-lumen 16 Fr. (Active) Number of days: 3 Weight Bearing Status: RUE: [] WBAT [] NWB [] Other: LUE: [] WBAT [] NWB [] Other: RLE: [] WBAT [] TTWB [x] NWB [] Other: LLE: [] WBAT [] TTWB [x] NWB [] Other: Disposition/Planning: Eval by LTAC/Rehab/SNF [] Yes [x] No [] N/A Facility: Medicaid paperwork completed: [] Yes [] No [x] N/A TO-DO LIST PRIOR TO TRANSFER Make sure the following monitors or precautions are ordered if indicated: Telemetry [x] Yes [] No Continuous pulse oximetry [x] Yes [] No SANTI precautions [x] Yes [] No Difficult airway [] Yes [x] No Trach orders/signage [] Yes [] No Size/Type: Date placed: Did patient require insulin while in SICU? [x] Yes, scheduled insulin [] Yes, sliding scale only ----> d/c SICU insulin and order floor sliding scale insulin [] No ----> d/c SICU insulin and blood glucose checks Is the patient receiving TPN? 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 [] Yes ----> Date: Have post-splenectomy vaccines been given?* [] Vaccine given [] Vaccine not given - Date vaccine due: [x] No * Indicated vaccines include haemophilus B, meningococcal [id number] conjugate, meningococcal B, and pneumococcal 13-valent. Vaccines should be given 14 days after splenectomy or prior to hospital discharge, whichever occurs first. Central line necessary? [] Yes [x] No [] N/A Groin line necessary? [] Yes [x] No [] N/A [x] Discontinue K/Mg/Phos repletion order (if applicable) [] Discontinue stress ulcer prophylaxis if no longer indicated [x] Signed & Held orders reconciled (all orders either released or discontinued) [x] Sign-out was called to Aaliyah of the [phone] QUESTIONS? Call [phone] SALES SERVICE PROFESSIONAL * Roxanne Gomez NP - 07/01/2019 7:08 AM CST Surgical ICU Daily Progress Team: Maycol VARGHESE Subjective Patient is a 68 y.o. female admitted on 06/28/2019 4:47 PM with chief complaint of SLMF HPI 68y/o Fw PMH HTN//Sz///depression//chronic pain//asthma//GERD SANTI//home O2 who sustained SLMF ->denied hitting head or LOC EMS -> MsO4 -> HoTN -> tourniquet was placed to her LLE ED -> still HoTN -> 2prbc -> hyperkalemia -> tx per protocol ?? Injuries Open periprosthetic tib fib fx (Type III -> gentamycin/Ancef in ER) (R) medial mal fx CTA no vascular injuries ?? 06/28:OR ORIF & WO (L) tib/fib ->partial closer w wound vac (R) medial mal fx splint -> intraop phenylephrine/// insulin infusion. Minimal EBL//1L cryst//UOP 325ml Arrived to SICU intubated///pressors///insulin CIVI ?? Interval History: Pain consult OOB Objective Physical Exam: Constitutional: intubated//sedated Head: normocephalic, without obvious abnormality Neurologic: motor 5/5 all extremities CANTU-> ORIF (L)tib fib //(R0 medial malleolus splint Eyes: PERRL HENT: dentition poor Neck: supple, symmetrical, trachea midline Chest: normal appearance, no masses or tenderness Respiratory: diminished breath sounds bilateral Cardiovascular: regular rate and rhythm, S1, S2 normal, no murmur, click, rub or gallop and tachycardia Gastrointestinal: soft, non-tender; bowel sounds present; no masses, no organomegaly Musculoskeletal: extremities normal, warm and well-perfused Pulses: radial: bilateral normal, DP: bilateral normal and PT: bilateral normal Skin: skin color, texture, turgor normal. No rashes or lesions Medications Scheduled Meds:acetaminophen, 1,000 mg, oral, Q6H KELIN atorvastatin, 10 mg, oral, Nightly calcium carbonate, 1,000 mg of elemental calcium, oral, BID ceFAZolin, 2,000 mg, intravenous, Q8H KELIN docusate, 100 mg, oral, BID enoxaparin, 40 mg, subcutaneous, Q12H KELIN esomeprazole DR, 40 mg, oral, Daily gabapentin, 300 mg, oral, Q8H insulin lispro, 1-3 Units, subcutaneous, Q4H KELIN metoprolol (LOPRESSOR) tablet/capsule, 25 mg, oral, Q6H KELIN polyethylene glycol, 17 g, oral, Daily primidone, 50 mg, oral, BID senna, 8.8 mg, oral, BID Continuous Infusions:dextrose 5% and Lactated Ringer's, 25 mL/hr, Last Rate: 25 mL/hr (07/01/19 0600) PRN Meds:.albuterol HFA ??? cyclobenzaprine ??? HYDROmorphone ??? ondansetron ??? oxyCODONE Vital signs for last 24 hours: Temp: [36 ??C (96.8 ??F)-38.3 ??C (100.9 ??F)] 38.3 ??C (100.9 ??F) Pulse: [102-138] 113 BP: (90-165)/(45-121) 126/53 Resp: [13-23] 17 SpO2: [89 %-100 %] 93 % Arterial Line BP: (90-137)/(64-112) 129/93 FiO2 (%): [40 %] 40 % Hemodynamics: MAP (mmHg): [58-129] 73 Pulmonary Support: O2 Therapy: Supplemental oxygen O2 Del Method: Nasal cannula FiO2 (%): 40 % O2 Flow Rate (L/min): 4 L/min Adult Vent Mode: Pressure support Ventilation FiO2 (%): 40 % S RR: 22 PEEP/CPAP/EPAP (cm H2O): 5 cm H20 Pressure Support (cm H2O): 5 cm H20 Intake/Output: Intake/Output Summary (Last 24 hours) at 07/01/2019 0708 Last data filed at 07/01/2019 0600 Gross per 24 hour Intake 2781.25 ml Output 1025 ml Net 1756.25 ml Lab/Radiology/Diagnostic Review: Laboratory review: Lab results in the last 12 hours: No results found for this or any previous visit (from the past 12 hour(s)). Recent Results (from the past 24 hour(s)) POCT glucose Collection Time: 06/30/19 8:07 AM Result Value Ref Range Glucose, POC 140 70 - 199 mg/dL Prepare RBC: 2 Units Collection Time: 06/30/19 10:49 AM Result Value Ref Range Product code I1493B80 Unit Number [id number] Product Blood Type APOS Dispense Status CROSSMATCHED Product code F2314K32 Unit Number [id number] Product Blood Type APOS Dispense Status PRESUMED TRANSFUSED CBC with auto differential Collection Time: 06/30/19 11:27 AM Result Value Ref Range WBC 14.0 (H) 3.8 - 9.9 K/cumm Hgb 7.7 (L) 11.9 - 15.5 g/dL Hct 24.0 (L) 35.6 - 45.5 % Plt 166 150 - 400 K/cumm MPV 11.7 9.1 - 12.3 fL RBC 2.78 (L) 3.90 - 5.20 M/cumm MCV 86.3 81.3 - 96.4 fL MCH 27.7 27.1 - 33.3 pg MCHC 32.1 (L) 32.3 - 35.7 g/dL RDW CV 18.5 (H) 11.1 - 14.9 % RDW SD 57.6 (H) 35.7 - 48.1 fL NRBC abs 0.07 (H) 0.00 - 0.01 K/cumm Differential, auto Collection Time: 06/30/19 11:27 AM Result Value Ref Range Neutrophil abs 8.8 (H) 1.7 - 6.5 K/cumm Imm gran abs 0.2 (H) 0.0 - 0.1 K/cumm Lymphocyte abs 2.9 0.8 - 3.3 K/cumm Monocyte abs 1.8 (H) 0.2 - 0.8 K/cumm Eosinophil abs 0.1 0.0 - 0.5 K/cumm Basophil abs 0.0 0.0 - 0.1 K/cumm Neutrophil pct 63.4 % Imm gran pct 1.5 % Lymphocyte pct 20.8 % Monocyte pct 13.1 % Eosinophil pct 0.9 % Basophil pct 0.3 % POC Blood Gas and Chemistries, Venous - Collection Time: 06/30/19 1:27 PM Result Value Ref Range pH, Rj POC 7.36 7.32 - 7.43 pCO2, Rj POC 47 40 - 50 mmHg pO2, Rj POC 43 mmHg Na, POC 138 135 - 145 mmol/L K, POC 3.8 3.3 - 4.9 mmol/L Cl, POC 107 97 - 110 mmol/L Ionized Ca, POC 5.20 (H) 4.50 - 5.10 mg/dL Glucose, POC 132 70 - 199 mg/dL Lactate, POC 1.4 0.7 - 2.2 mmol/L O2 Sat, Rj POC (Gorge) 74 % Base Excess, POC 0.6 mmol/L HCO3, Rj POC 27 20 - 30 mmol/L Hct, POC 23.0 (L) 36.3 - 45.3 % Total Hb, POC 7.7 (L) 11.9 - 15.5 g/dL O2 Sat, Rj POC (Calc) 76 % POCT platelet count and hematocrit Collection Time: 06/30/19 1:28 PM Result Value Ref Range Hematocrit POC 23.1 (L) 36.1 - 44.3 % Platelet POC [facility] 188 140 - 440 K/cumm CBC without differential Collection Time: 06/30/19 4:21 PM Result Value Ref Range WBC 17.5 (H) 3.8 - 9.9 K/cumm Hgb 9.0 (L) 11.9 - 15.5 g/dL Hct 27.7 (L) 35.6 - 45.5 % Plt 189 150 - 400 K/cumm MPV 11.0 9.1 - 12.3 fL RBC 3.16 (L) 3.90 - 5.20 M/cumm MCV 87.7 81.3 - 96.4 fL MCH 28.5 27.1 - 33.3 pg MCHC 32.5 32.3 - 35.7 g/dL RDW CV 18.0 (H) 11.1 - 14.9 % RDW SD 57.1 (H) 35.7 - 48.1 fL NRBC abs 0.13 (H) 0.00 - 0.01 K/cumm aPTT Collection Time: 06/30/19 4:21 PM Result Value Ref Range aPTT 22 (L) 25 - 37 sec Protime-INR Collection Time: 06/30/19 4:21 PM Result Value Ref Range PT 12.8 8.6 - 13.0 sec INR 1.2 0.8 - 1.2 Lactate, whole blood Collection Time: 06/30/19 4:23 PM Result Value Ref Range Lactate, bld 1.8 0.7 - 2.0 mmol/L CBC without differential Collection Time: 06/30/19 10:06 PM Result Value Ref Range WBC 16.5 (H) 3.8 - 9.9 K/cumm Hgb 8.2 (L) 11.9 - 15.5 g/dL Hct 25.5 (L) 35.6 - 45.5 % Plt 166 150 - 400 K/cumm MPV 11.6 9.1 - 12.3 fL RBC 2.97 (L) 3.90 - 5.20 M/cumm MCV 85.9 81.3 - 96.4 fL MCH 27.6 27.1 - 33.3 pg MCHC 32.2 (L) 32.3 - 35.7 g/dL RDW CV 17.7 (H) 11.1 - 14.9 % RDW SD 54.6 (H) 35.7 - 48.1 fL NRBC abs 0.23 (H) 0.00 - 0.01 K/cumm Basic metabolic panel Collection Time: 06/30/19 10:06 PM Result Value Ref Range Sodium 139 135 - 145 mmol/L Potassium, pl 4.2 3.3 - 4.9 mmol/L Chloride 105 97 - 110 mmol/L CO2 26 22 - 32 mmol/L Anion gap 8 2 - 15 mmol/L BUN 14 8 - 25 mg/dL Creatinine 0.95 0.60 - 1.10 mg/dL Glucose 130 70 - 199 mg/dL Calcium 7.9 (L) 8.5 - 10.3 mg/dL Blood gas, arterial Collection Time: 06/30/19 10:06 PM Result Value Ref Range pH, Art POC 7.40 7.35 - 7.45 PCO2, Arterial 42 35 - 45 mmHg PO2, Arterial 107 83 - 108 mmHg HCO3 Art (Calculated) 27 20 - 30 mmol/L BE, art 1 mmol/L O2 Sat Art (Measured) 98 (H) 90 - 95 % Magnesium Collection Time: 06/30/19 10:06 PM Result Value Ref Range Magnesium 2.1 1.4 - 2.5 mg/dL POCT glucose Collection Time: 06/30/19 11:43 PM Result Value Ref Range Glucose, POC 98 70 - 199 mg/dL Xr Chest 1 View Result Date: 06/30/2019 Comparison is made chest radiograph dated 06/29/2019 at 12:31 AM. The endotracheal tube terminates in the midthoracic trachea. A gastric tube courses below the diaphragm. The cardiomediastinal silhouette is unchanged given differences in patient rotation. There are small lung volumes with bibasilar atelectasis. No pneumothorax or pleural effusion. Dictated by: Jairo Bo M.D. The radiology attending physician has personally reviewed this study, and had reviewed and/or edited this written report and agrees with it. Electronically signed by: Radha Jay M.D. Assessment/Plan Principal Problem: Open displaced comminuted fracture of shaft of left tibia, type IIIA, IIIB, or IIIC NEURO: #Acute Pain: R/t polytrauma Goal pain score < 4 Scheduled APAP Gabapentin 300 TID Flexeril 5 TID PRN Scheduled oxycodone 10mg q4 hrs Prn Dilaudid 0.25mg q 4hrs - APAP Kelin #Chronic pain Appreciate pain recs Primarily LE//lower back 05/04 BL Home medications decreases pain 6-7 Home meds -> [place] 7.5/325 TID -> hold Baclofen 10 QID -> hold Flexeril 5mg QID -> TID Gabapentin 400-800-800 -> 300 tid #Seizure disorder Chronic Home meds -> Primidone// Depakote. UDS + barbituates Continue primidone?? Sz precautions CV: #HTN Chronic Multiple antihypertensives Clarify home medications Metoprolol Pain control 06/12/19:TTE EF~55-60%, nl LV/RV PULM: #Acute Pulmonary Insufficiency Extubated -> 6lpm NC Pulmonary toilet GI: Diet: NPO -> speech eval Bowel regimen: Colace//senna pending speech eval #GERD PPI (home PPI) ENDO: #Hyperglycemia No history DM A1C ~6.2 (05/2019) 06/30:insulin CIVI weaned off MDSS RENAL: #LUAN Multifactorial -> vol depletion//contrast//medications Cr trending down Lab Results Component Value Date CREATININE 0.95 06/30/2019 HEME: #ABLA Multifactorial ->polytrauma//OR//dilutional//iatrogenic Lab Results Component Value Date HGB 8.2 (L) 06/30/2019 -No s/s bleeding, no indication for transfusion, continue to monitor closely ID: #Leukocytosis Multifactorial -> polytrauma//OR//orthopedic injuries WBC trending down Afebrile Lab Results Component Value Date WBC 16.5 (H) 06/30/2019 Antibiotics: 06/28:Ancef//Gentamicin Cultures: 07/01:MRSA neg MSK: #(L) tibia/fibula fx 06/28: I&D ORIF (L) proximal tibia periprosthetic fx 06/30:s/p revision ORIF I&D (L)T3 open PPf w vac POD5 -> vac will come down for skin check HKB locked in extension NWB ?? 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 Orthopaedic Trauma Service Daily Progress Note Subjective 68 y.o. female now POD1 s/p repeat I&D, revision ORIF L T3 open PP tib / fib shaft fx, R medialmal ankle fx Patient extubated ~ 5:30 AM. Tachy to 120s initially improved to 110s during rounds. Painful this AM. Tmax 38.3. 8.2/25.5 Cr 0.95. iVAC holding suction. iVac holding suction. RLE: splint cdi, mild decr spn o/w NVI. LLE: decreased sensation globally. Flicker fires fhl, flexes / extends toes, no ehl, unable to fire ta/gc. Initial tertiary negative. iVac down POD5. Current Facility-Administered Medications Medication Dose Route Frequency Last Rate Last Dose ??? acetaminophen (TYLENOL) 32 mg/mL oral solution 1,000 mg 1,000 mg oral Q6H KELIN ??? albuterol HFA (PROVENTIL HFA,VENTOLIN HFA,PROAIR HFA) 90 mcg/actuation inhaler 2 puff 2 puff inhalation Q6H PRN (RT) ??? atorvastatin (LIPITOR) tablet 10 mg 10 mg oral Nightly ??? calcium carbonate (OS-MAGNUS) tablet 2,500 mg 1,000 mg of elemental calcium oral BID 2,500 mg at 07/01/19 0814 ??? ceFAZolin (ANCEF) 2,000 mg/20 mL in sterile water (premix) 2,000 mg 2,000 mg intravenous Q8H KELIN 400 mL/hr at 07/01/19 0548 2,000 mg at 07/01/19 0548 ??? cyclobenzaprine (FLEXERIL) tablet 5 mg 5 mg feeding tube TID PRN 5 mg at 06/30/19 1106 ??? dextrose 5% and Lactated Ringer's infusion 25 mL/hr intravenous Continuous 25 mL/hr at 600 25 mL/hr at 07/01/19 0600 ??? docusate (COLACE) 10 mg/mL oral liquid 100 mg 100 mg oral BID 100 mg at 07/01/19 0813 ??? enoxaparin (LOVENOX) syringe 40 mg 40 mg subcutaneous Q12H KELIN 40 mg at 12/07/19 0815 ??? esomeprazole DR (NexIUM) extended release oral suspension 40 mg 40 mg oral Daily 40 mg at 07/01/19813 ??? gabapentin (NEURONTIN) 50 mg/mL oral solution 300 mg 300 mg oral Q8H ??? HYDROmorphone (DILAUDID) injection 0.25 mg 0.25 mg intravenous Q4H PRN 0.25 mg at 07/01/19 05 ??? insulin lispro (HumaLOG) injection 1-3 Units 1-3 Units subcutaneous Q4H KELIN ??? metoprolol (LOPRESSOR) tablet 25 mg 25 mg oral Q6H KELIN ??? ondansetron (ZOFRAN) injection 4 mg 4 mg intravenous Q6H PRN 4 mg at 07/01/19704 ??? oxyCODONE (ROXICODONE) 1 mg/mL oral solution 10 mg 10 mg feeding tube Q4H PRN 10 mg at ??? polyethylene glycol (MIRALAX) packet 17 g 17 g oral Daily 17 g at 07/01/19813 ??? primidone (MYSOLINE) tablet 50 mg 50 mg oral BID 50 mg at 07/01/19813 ??? senna 1.76 mg/mL syrup 8.8 mg 8.8 mg oral BID 8.8 mg at 07/01/19813 Objective Vitals: 24hr Min/Max: Temp Min: 36 ??C (96.8 ??F) Max: 38.3 ??C (100.9 ??F) Pulse Min: 102 Max: 138 BP Min: 90/65 Max: 165/121 Resp Min: 13 Max: 23 SpO2 Min: 89 % Max: 100 % I/O last 2 completed shifts: In: 2781.3 [I.V.:1516.3; Blood:350; NG/GT:345; IV Piggyback:570] Out: 1115 [Urine:965; Drains:150] No intake/output data recorded. Physical Exam: MSK: In no acute distress. Alert and oriented ?? 3. Normal respirations, no dyspnea with speaking. RUE: No obvious deformity, skin intact, no ecchymosis No tenderness to palpation, able to range shoulder/elbow/wrist w/o pain Motor and sensation intact to SILT M/U/R/A nerve distributions 2+radial pulse Fingers WWP, BCR <2 seconds LUE No obvious deformity, skin intact, no ecchymosis No tenderness to palpation, able to range shoulder/elbow/wrist w/o pain Motor and sensation intact to SILT M/U/R/A nerve distributions 2+radial pulse Fingers WWP, BCR <2 seconds RLE: splint cdi, mild decr spn (baseline neuropathy). LLE: HKB locked in ext. decreased sensation globally (baseline neuropathy). Flicker fires fhl, flexes / extends toes, no ehl, unable to fire ta/gc. LLE decreased sensation globally (baseline neuropathy) Flicker fires fhl, flexes / extends toes, no ehl, unable to fire ta/gc. iVac down POD5. Toes wwp HKB in place and locked in extension Labs: Hematology Lab History Some values may be hidden. Unless noted otherwise, only the newest values recorded on each date aredisplayed. Labs - Hematology Latest Ref Range 06/13/19 06/28/19 06/29/19 06/30/19 WBC 3.8 - 9.9 K/cumm 6.5 20.3 (A) 14.7 (A) 16.5 (A) Total Hb, POC 11.9 - 15.5 g/dL 10.4 (A) 7.9 (A) 6.5 (A) 8.2 (A) Hct 35.6 - 45.5 % 33.9 (A) 26.4 (A) 20.2 (A) 25.5 (A) Plt 150 - 400 K/cumm 180 188 173 166 Neutrophil abs 1.7 - 6.5 K/cumm 2,900 15.4 (A) 8.8 (A) 8.8 (A) Some values recorded on this date have been omitted. Some abnormal values recorded on this date have been omitted. (A) Abnormal value Chem/LFT Lab History Some values may be hidden. Unless noted otherwise, only the newest values recorded on each date aredisplayed. Labs-Chem/LFT Latest Ref Range 06/13/19 06/28/19 06/29/19 06/30/19 Sodium 135 - 145 mmol/L 138 141 (C) 139 139 Potassium Lvl 3.3 - 5.1 mmol/L 5.1 BUN 8 - 25 mg/dL 22 Creatinine 0.60 - 1.10 mg/dL 0.8 1.50 (A) (C) 1.14 (A) 0.95 Bilirubin, total 0.1 - 1.2 mg/dL 0.2 (C) AST 10 - 45 Units/L 43 (C) ALT 7 - 45 Units/L 41 (C) CrCl- Actual Body Weight (Cockcroft-Gault) 62.4 87.4 104.8 Some values recorded on this date have been omitted. Some abnormal values recorded on this date have been omitted. (A) Abnormal value (C) Corrected value Comments are available for some flowsheets but are not being displayed. Assessment/Plan Pepper Kapil Ewing is a 68 y.o. female who is POD 3 s/p I&D ORIF L proximal tibia periprosthetic fx. Now POD1 s/p POD1 s/p repeat I&D, revision ORIF L T3 open PP tib / fib shaft fx, R medial mal ankle fx. PLAN: 1. NWB BLE 1. LLE in HKB locked in extension 2. RLE in SLS 2. DVT ppx w/ SCDs, lovenox 40 qpm 3. LUAN - CTM 4. Anemia: transfusion goal 7 5. iVAC will come down POD5 for skin check 6. Initial tertiary exam negative 7. PT/OT/OOB 8. Appreciate critical care help Milo Forrester MD Department of Orthopaedic Surgery [facility] in [place] If questions arise overnight, the OTS team can be reached at: [phone] (Floor Resident ) [phone] (Consult Resident) SALES SERVICE PROFESSIONAL SALES SERVICE PROFESSIONAL * Ina Flor PA - 06/30/2019 7:49 PM CST Surgical ICU Daily Progress Team: Blue PM Subjective Patient is a 68 y.o. female admitted on 06/28/2019 4:47 PM with chief complaint of polytrauma s/p fall. Interval History: - Replete Ca - Plan to wean sedation and BEST in AM Objective Physical Exam: Gen: NAD Neuro: Alert, intermittently nods, CANTU, LE in nury wrap, moves toes CV: RRR, S1,S2 no m/r/g Pulm: CTA bilat, respirations even, unlabored GI: hypoactive BS, abd soft, mild tenderness, non distended Delarosa with CYU Extremities: Warm,BLE in nury wrap, cap refill <2 seconds. Medications Scheduled Meds:acetaminophen, 1,000 mg, feeding tube, Q6H KELIN atorvastatin, 10 mg, feeding tube, Nightly calcium carbonate, 1,000 mg of elemental calcium, feeding tube, BID ceFAZolin, 2,000 mg, intravenous, Q8H KELIN chlorhexidine, 15 mL, mouth/throat, BID docusate, 100 mg, feeding tube, BID enoxaparin, 40 mg, subcutaneous, Q12H KELIN esomeprazole DR, 40 mg, feeding tube, Daily gabapentin, 300 mg, feeding tube, Q8H insulin lispro, 1-3 Units, subcutaneous, Q4H KELIN metoprolol, 5 mg, intravenous, Q4H oxyCODONE, 10 mg, feeding tube, Q4H polyethylene glycol, 17 g, feeding tube, Daily primidone, 50 mg, feeding tube, BID senna, 8.8 mg, feeding tube, BID Continuous Infusions:dextrose 5% and Lactated Ringer's, 25 mL/hr, Last Rate: 25 mL/hr (07/01/19 0500) fentaNYL, 12.5-400 mcg/hr, Last Rate: 50 mcg/hr (07/01/19 0500) propofol, 5-50 mcg/kg/min, Last Rate: Stopped (07/01/19 0400) PRN Meds:.albuterol HFA ??? cyclobenzaprine ??? fentaNYL Vital signs for last 24 hours: Temp: [36 ??C (96.8 ??F)-38.3 ??C (100.9 ??F)] 38.3 ??C (100.9 ??F) Pulse: [102-138] 126 BP: (90-165)/(45-121) 124/65 Resp: [13-23] 16 SpO2: [89 %-100 %] 92 % Arterial Line BP: (90-154)/(64-112) 129/93 FiO2 (%): [40 %] 40 % Hemodynamics: MAP (mmHg): [58-129] 79 Pulmonary Support: O2 Therapy: Supplemental oxygen O2 Del Method: Endotracheal tube FiO2 (%): 40 % Adult Vent Mode: Pressure support Ventilation FiO2 (%): 40 % S RR: 22 PEEP/CPAP/EPAP (cm H2O): 5 cm H20 Pressure Support (cm H2O): 5 cm H20 Intake/Output: Intake/Output Summary (Last 24 hours) at 07/01/2019 0529 Last data filed at 07/01/2019 0500 Gross per 24 hour Intake 2736.25 ml Output 1085 ml Net 1651.25 ml Lab/Radiology/Diagnostic Review: Laboratory review: Lab results in the last 12 hours: Recent Results (from the past 12 hour(s)) CBC without differential Collection Time: 06/30/19 10:06 PM Result Value Ref Range WBC 16.5 (H) 3.8 - 9.9 K/cumm Hgb 8.2 (L) 11.9 - 15.5 g/dL Hct 25.5 (L) 35.6 - 45.5 % Plt 166 150 - 400 K/cumm MPV 11.6 9.1 - 12.3 fL RBC 2.97 (L) 3.90 - 5.20 M/cumm MCV 85.9 81.3 - 96.4 fL MCH 27.6 27.1 - 33.3 pg MCHC 32.2 (L) 32.3 - 35.7 g/dL RDW CV 17.7 (H) 11.1 - 14.9 % RDW SD 54.6 (H) 35.7 - 48.1 fL NRBC abs 0.23 (H) 0.00 - 0.01 K/cumm Basic metabolic panel Collection Time: 06/30/19 10:06 PM Result Value Ref Range Sodium 139 135 - 145 mmol/L Potassium, pl 4.2 3.3 - 4.9 mmol/L Chloride 105 97 - 110 mmol/L CO2 26 22 - 32 mmol/L Anion gap 8 2 - 15 mmol/L BUN 14 8 - 25 mg/dL Creatinine 0.95 0.60 - 1.10 mg/dL Glucose 130 70 - 199 mg/dL Calcium 7.9 (L) 8.5 - 10.3 mg/dL Blood gas, arterial Collection Time: 06/30/19 10:06 PM Result Value Ref Range pH, Art POC 7.40 7.35 - 7.45 PCO2, Arterial 42 35 - 45 mmHg PO2, Arterial 107 83 - 108 mmHg HCO3 Art (Calculated) 27 20 - 30 mmol/L BE, art 1 mmol/L O2 Sat Art (Measured) 98 (H) 90 - 95 % Magnesium Collection Time: 06/30/19 10:06 PM Result Value Ref Range Magnesium 2.1 1.4 - 2.5 mg/dL POCT glucose Collection Time: 06/30/19 11:43 PM Result Value Ref Range Glucose, POC 98 70 - 199 mg/dL Recent Results (from the past 24 hour(s)) POCT glucose Collection Time: 06/30/19 8:07 AM Result Value Ref Range Glucose, POC 140 70 - 199 mg/dL Prepare RBC: 2 Units Collection Time: 06/30/19 10:49 AM Result Value Ref Range Product code [id number] Unit Number [id number] Product Blood Type APOS Dispense Status CROSSMATCHED Product code [id number] Unit Number [id number] Product Blood Type APOS Dispense Status PRESUMED TRANSFUSED CBC with auto differential Collection Time: 06/30/19 11:27 AM Result Value Ref Range WBC 14.0 (H) 3.8 - 9.9 K/cumm Hgb 7.7 (L) 11.9 - 15.5 g/dL Hct 24.0 (L) 35.6 - 45.5 % Plt 166 150 - 400 K/cumm MPV 11.7 9.1 - 12.3 fL RBC 2.78 (L) 3.90 - 5.20 M/cumm MCV 86.3 81.3 - 96.4 fL MCH 27.7 27.1 - 33.3 pg MCHC 32.1 (L) 32.3 - 35.7 g/dL RDW CV 18.5 (H) 11.1 - 14.9 % RDW SD 57.6 (H) 35.7 - 48.1 fL NRBC abs 0.07 (H) 0.00 - 0.01 K/cumm Differential, auto Collection Time: 06/30/19 11:27 AM Result Value Ref Range Neutrophil abs 8.8 (H) 1.7 - 6.5 K/cumm Imm gran abs 0.2 (H) 0.0 - 0.1 K/cumm Lymphocyte abs 2.9 0.8 - 3.3 K/cumm Monocyte abs 1.8 (H) 0.2 - 0.8 K/cumm Eosinophil abs 0.1 0.0 - 0.5 K/cumm Basophil abs 0.0 0.0 - 0.1 K/cumm Neutrophil pct 63.4 % Imm gran pct 1.5 % Lymphocyte pct 20.8 % Monocyte pct 13.1 % Eosinophil pct 0.9 % Basophil pct 0.3 % POC Blood Gas and Chemistries, Venous - Collection Time: 06/30/19 1:27 PM Result Value Ref Range pH, Rj POC 7.36 7.32 - 7.43 pCO2, Rj POC 47 40 - 50 mmHg pO2, Rj POC 43 mmHg Na, POC 138 135 - 145 mmol/L K, POC 3.8 3.3 - 4.9 mmol/L Cl, POC 107 97 - 110 mmol/L Ionized Ca, POC 5.20 (H) 4.50 - 5.10 mg/dL Glucose, POC 132 70 - 199 mg/dL Lactate, POC 1.4 0.7 - 2.2 mmol/L O2 Sat, Rj POC (Gorge) 74 % Base Excess, POC 0.6 mmol/L HCO3, Rj POC 27 20 - 30 mmol/L Hct, POC 23.0 (L) 36.3 - 45.3 % Total Hb, POC 7.7 (L) 11.9 - 15.5 g/dL O2 Sat, Rj POC (Calc) 76 % POCT platelet count and hematocrit Collection Time: 06/30/19 1:28 PM Result Value Ref Range Hematocrit POC 23.1 (L) 36.1 - 44.3 % Platelet POC Juan Manuel 188 140 - 440 K/cumm CBC without differential Collection Time: 06/30/19 4:21 PM Result Value Ref Range WBC 17.5 (H) 3.8 - 9.9 K/cumm Hgb 9.0 (L) 11.9 - 15.5 g/dL Hct 27.7 (L) 35.6 - 45.5 % Plt 189 150 - 400 K/cumm MPV 11.0 9.1 - 12.3 fL RBC 3.16 (L) 3.90 - 5.20 M/cumm MCV 87.7 81.3 - 96.4 fL MCH 28.5 27.1 - 33.3 pg MCHC 32.5 32.3 - 35.7 g/dL RDW CV 18.0 (H) 11.1 - 14.9 % RDW SD 57.1 (H) 35.7 - 48.1 fL NRBC abs 0.13 (H) 0.00 - 0.01 K/cumm aPTT Collection Time: 06/30/19 4:21 PM Result Value Ref Range aPTT 22 (L) 25 - 37 sec Protime-INR Collection Time: 06/30/19 4:21 PM Result Value Ref Range PT 12.8 8.6 - 13.0 sec INR 1.2 0.8 - 1.2 Lactate, whole blood Collection Time: 06/30/19 4:23 PM Result Value Ref Range Lactate, bld 1.8 0.7 - 2.0 mmol/L CBC without differential Collection Time: 06/30/19 10:06 PM Result Value Ref Range WBC 16.5 (H) 3.8 - 9.9 K/cumm Hgb 8.2 (L) 11.9 - 15.5 g/dL Hct 25.5 (L) 35.6 - 45.5 % Plt 166 150 - 400 K/cumm MPV 11.6 9.1 - 12.3 fL RBC 2.97 (L) 3.90 - 5.20 M/cumm MCV 85.9 81.3 - 96.4 fL MCH 27.6 27.1 - 33.3 pg MCHC 32.2 (L) 32.3 - 35.7 g/dL RDW CV 17.7 (H) 11.1 - 14.9 % RDW SD 54.6 (H) 35.7 - 48.1 fL NRBC abs 0.23 (H) 0.00 - 0.01 K/cumm Basic metabolic panel Collection Time: 06/30/19 10:06 PM Result Value Ref Range Sodium 139 135 - 145 mmol/L Potassium, pl 4.2 3.3 - 4.9 mmol/L Chloride 105 97 - 110 mmol/L CO2 26 22 - 32 mmol/L Anion gap 8 2 - 15 mmol/L BUN 14 8 - 25 mg/dL Creatinine 0.95 0.60 - 1.10 mg/dL Glucose 130 70 - 199 mg/dL Calcium 7.9 (L) 8.5 - 10.3 mg/dL Blood gas, arterial Collection Time: 06/30/19 10:06 PM Result Value Ref Range pH, Art POC 7.40 7.35 - 7.45 PCO2, Arterial 42 35 - 45 mmHg PO2, Arterial 107 83 - 108 mmHg HCO3 Art (Calculated) 27 20 - 30 mmol/L BE, art 1 mmol/L O2 Sat Art (Measured) 98 (H) 90 - 95 % Magnesium Collection Time: 06/30/19 10:06 PM Result Value Ref Range Magnesium 2.1 1.4 - 2.5 mg/dL POCT glucose Collection Time: 06/30/19 11:43 PM Result Value Ref Range Glucose, POC 98 70 - 199 mg/dL Xr Knee Left 1 Or 2 Views Result Date: 06/29/2019 1. Open comminuted periprosthetic fracture of the proximal left tibia 2. Open comminuted fracture of the proximal left fibula 3. Mildly displaced intra- articular right medial malleolus fracture 4. Noacute pelvic fracture. Dictated by: Luh Moffett M.D. The radiology attending physician has personally reviewed this study, and had reviewed and/or edited this written report and agrees with it. Electronically signed by: Gilberto Fuentes M.D. Xr Tibia Fibula Left 2 Views Result Date: 06/29/2019 1. Open comminuted periprosthetic fracture of the proximal left tibia 2. Open comminuted fracture of the proximal left fibula 3. Mildly displaced intra- articular right medial malleolus fracture 4. Noacute pelvic fracture. Dictated by: Luh Moffett M.D. The radiology attending physician has personally reviewed this study, and had reviewed and/or edited this written report and agrees with it. Electronically signed by: Gilberto Fuentes M.D. Xr Tibia Fibula Right 2 Views Result Date: 06/29/2019 1. Open comminuted periprosthetic fracture of the proximal left tibia 2. Open comminuted fracture of the proximal left fibula 3. Mildly displaced intra- articular right medial malleolus fracture 4. Noacute pelvic fracture. Dictated by: Luh Moffett M.D. The radiology attending physician has personally reviewed this study, and had reviewed and/or edited this written report and agrees with it. Electronically signed by: Gilberto Fuentes M.D. Xr Ankle Left 3 Or More Views Result Date: 06/29/2019 1. Open comminuted periprosthetic fracture of the proximal left tibia 2. Open comminuted fracture of the proximal left fibula 3. Mildly displaced intra- articular right medial malleolus fracture 4. Noacute pelvic fracture. Dictated by: Luh Moffett M.D. The radiology attending physician has personally reviewed this study, and had reviewed and/or edited this written report and agrees with it. Electronically signed by: Gilberto Fuentes M.D. Xr Ankle Right 3 Or More Views Result Date: 06/29/2019 1. Open comminuted periprosthetic fracture of the proximal left tibia 2. Open comminuted fracture of the proximal left fibula 3. Mildly displaced intra- articular right medial malleolus fracture 4. Noacute pelvic fracture. Dictated by: Luh Moffett M.D. The radiology attending physician has personally reviewed this study, and had reviewed and/or edited this written report and agrees with it. Electronically signed by: Gilberto Fuentes M.D. Cta Lower Extremity Left Result Date: 06/29/2019 1. Left lower extremity: Three-vessel runoff. 2. Non-opacification of a left peroneal artery proximal segment with distal reconstitution is favored to represent focal vasospasm/stenosis secondary to extrinsic arterial compression from the surrounding muscular edema. No evidence of arterial injury. 3. Markedly comminuted, open, angulated, and displaced periprosthetic fracture of the left proximal tibia. 4. Comminuted, angulated, and displaced fracture of the left proximal fibula. 5. Marked edemathroughout the muscle compartments of the distal left lower extremity. Dictated by: Mikhail Beyer The radiology attending physician has personally reviewed this study, and had reviewed and/or edited this written report and agrees with it. Electronically signed by: Gilberto Fuentes M.D. Xr Chest 1 Vw Portable Result Date: 06/29/2019 1st is made to same day chest CT. There is an endotracheal tube which terminates 1.3 cm above the jesús. A gastric tube projects below the left hemidiaphragm, extending at least to the body of the stomach. Lung volumes are decreased with bibasilar atelectasis. There are right upper lung predominant opacities correlate with areas of groundglass opacity seen on CT and may represent asymmetric pulmonary edema. There is no pleural effusion or pneumothorax. Cardiomediastinal contours are within normal limits accounting for portable technique and low lung volumes. Dictated by: Luh Moffett M.D. The radiology attending physician has personally reviewed this study, and had reviewed and/or edited this written report and agrees with it. Electronically signed by: Gilberto Fuentes M.D. Xr Chest 1 View Result Date: 06/29/2019 Comparison is made to 06/28/2018 6:43 PM. Endotracheal tip is 2.8 cm above the jesús. Gastric tubetip passing into diaphragm with tip collimated off the study. Improving mild bibasilar atelectasis.No pulmonary edema or pneumonic consolidation. No effusion or pneumothorax. Heart size and visible contours are unchanged accounting for patient rotation. Dictated by: Vic Terrell The radiology attending physician has personally reviewed this study, and had reviewed and/or edited this written report and agrees with it. Electronically signed by: Jason Tellez M.D. Xr Femur Left 2 Or More Views Result Date: 06/29/2019 1. Open comminuted periprosthetic fracture of the proximal left tibia 2. Open comminuted fracture of the proximal left fibula 3. Mildly displaced intra- articular right medial malleolus fracture 4. Noacute pelvic fracture. Dictated by: Luh Moffett M.D. The radiology attending physician has personally reviewed this study, and had reviewed and/or edited this written report and agrees with it. Electronically signed by: Gilberto Fuentes M.D. Ct Chest Abdomen Pelvis W Contrast Result Date: 06/29/2019 1. No acute intra-abdominal traumatic injury. 2. Scattered, biapical groundglass opacities with septal line thickening may represent mild pulmonary edema. 3. Mild bibasilar atelectasis. Dictated by: Mikhail Beyer The radiology attending physician has personally reviewed this study, and had reviewed and/or edited this written report and agrees with it. Electronically signed by: Gilberto Fuentes M.D. Xr Pelvis 1 Or 2 Views Result Date: 06/29/2019 1. Open comminuted periprosthetic fracture of the proximal left tibia 2. Open comminuted fracture of the proximal left fibula 3. Mildly displaced intra- articular right medial malleolus fracture 4. Noacute pelvic fracture. Dictated by: Luh Moffett M.D. The radiology attending physician has personally reviewed this study, and had reviewed and/or edited this written report and agrees with it. Electronically signed by: Gilberto Fuentes M.D. Ct Head And Cervical Spine Wo Contrast Result Date: 06/29/2019 1. No acute intracranial abnormality, such as hemorrhage. 2. No evidence of acute fracture in the cervical spine. 3. Recommend follow up of the Incidental enlarged pituitary with MRI pituitary protocol if clinically indicated. Dictated by: Adithya Murphy M.D. The radiology attending physician has personally reviewed this study, and had reviewed and/or edited this written report and agrees with it. Electronically signed by: Krupa Grossman M.D. Assessment/Plan Principal Problem: Open displaced comminuted fracture of shaft of left tibia, type IIIA, IIIB, or IIIC NEURO: #Acute Pain: - Fentanyl gtt - Pain goal <4 #Agitation requiring sedation protocol - Propofol gtt for RASS 0 to -2 #Seizure disorder: chronic, per medical record -Per last found med list in medical record, patient takes Primidone and Depakote. -Positive for barbituates on UDS -Continue primidone ?? #chronic and acute falls: -06/28: CT head and c-spine negative -clear collar cleared today CV: #HTN, chronic: -Records show pt taking different agents at different times -Continue metoprolol IV - re-evaluate and clarify meds when able ?? ECHO 06/12/19- EF 55-60%, trace TR, mild AR, grade I diastolic dysfunction, otherwise normal?? PULM: #Acute Respiratory Failure: unclear what prompted intubation in ED, per anesthesia combativeness vsover narcotization vs threatened airway Currently remains intubated for OR tomorrow - ACVC 22/450/40/5 - BEST in AM - vap ppx GI: Diet: NPO, meds per tube Bowel regimen: colace, senna #GERD - Continue home PPI ENDO: #Hyperglycemia: no known history DM - Hgb A1c 6.2 in May. - Insulin gtt, weaned off today - Continue MDSSI RENAL: #LUAN: likely 2/2 hypovolemia - Cr 1.41-->1.14-->0.95 - Adequate UOP - CTM Lab Results Component Value Date CREATININE 0.95 06/30/2019 HEME: #ABLA: 2/2 trama, surgery - Hg stable - Transfuse 1 unit prbc - Repeat CBC in am -No s/s bleeding, continue to monitor closely Lab Results Component Value Date HGB 8.2 (L) 06/30/2019 ID: #Leukocytosis: likely reactive 2/2 trauma, and surgery - WBC 21 - Continue abx until fractures are closed - Afebrile - CTM Lab Results Component Value Date WBC 16.5 (H) 06/30/2019 Antibiotics: Gentamycin Ancef MSK: #Left open tib/fib fracture: 2/2 fall -S/p I/D, ORIF, splint, partial close and wound vac 06/28. -Ortho Trauma following. -Plan to return to OR for further repair zahida -NWB -tdap given in ED ?? #Right medial mal fracture: 2/2 fall -S/p washout and splint 06/28. -Ortho Trauma following. -Plan to return to OR for further repair or Wednesday -NWB Intensive Care Unit Standards of Care: Restraints: none DVT prophylaxis: Lovenox in AM Vascular access: PIV, sara Goals of care: Full code Assessment and plan has been reviewed with attending, JOSE CRUZ Castellon SALES SERVICE PROFESSIONAL * [facility] - 06/30/2019 10:21 AM CST Patient profile has been reviewed by clinical registered pharmacy technician on 06/30/2019. Case reviewed on rounds with multidisciplinary team or outside of rounds with prescribers as necessary. Additional significant interventions or issues related to ongoing monitoring are listed below as appropriate. Recommendations: -Obtain gent trough today at 1630 (desired <2), if >2 please hold dose and obtain trough at 0500 -LR 500 ml x1 -Start metop 5 mg IV q4h with hold parameters -Resume home cyclobenzaprine 5 mg tid prn, gabapentin 300 mg q8h and oxy 10 mg q4h Current Facility-Administered Medications: acetaminophen (TYLENOL) 32 mg/mL oral solution 1,000 mg, 1,000 mg, feeding tube, Q6H [facility], Luz Moody NP, 1,000 mg at 06/30/19 0637 albuterol HFA (PROVENTIL HFA,VENTOLIN HFA,PROAIR HFA) 90 mcg/actuation inhaler 2 puff, 2 puff, inhalation, Q6H PRN (RT), Brittany Serrano NP atorvastatin (LIPITOR) tablet 10 mg, 10 mg, feeding tube, Nightly, Luz Driscoll NP, 10 mg at 06/29/192032 ceFAZolin (ANCEF) 2,000 mg/20 mL in sterile water (premix) 2,000 mg, 2,000 mg, intravenous, Q8H KELIN, Mago Brian MD, Last Rate: 400 mL/hr at 06/30/19 0826, 2,000 mg at 06/30/19 08 chlorhexidine (PERIDEX) 0.12 % solution 15 mL, 15 mL, mouth/throat, BID, Brittany Serrano NP, 15 mL at 06/30/19 09 dextrose 5% and Lactated Ringer's infusion, 25 mL/hr, intravenous, Continuous, Brittany Serrano NP, Last Rate: 25 mL/hr at 06/30/19 1000, 25 mL/hr at 06/30/19 1000 docusate (COLACE) 10 mg/mL oral liquid 100 mg, 100 mg, feeding tube, BID, Brittany Serrano NP, 100 mg at 06/30/[address] (NexIUM) extended release oral suspension 40 mg, 40 mg, feeding tube, Daily, Luz Driscoll NP, 40 mg at 06/30/19 09 fentaNYL (SUBLIMAZE) bolus from bag 50 mcg, 50 mcg, intravenous, Q30 Min PRN, Brittany Serrano NP, 50 mcg at 06/30/19 0825 fentaNYL 2500 mcg/50 mL (50 mcg/mL) infusion (premix), 12.5-400 mcg/hr, intravenous, Titrated, Brittany Serrano NP, Last Rate: 2 mL/hr at 06/30/19 1000, 100 mcg/hr at 06/30/19 1000 gentamicin (GARAMYCIN) 370 mg in sodium chloride 0.9% 37 mL (10 mg/mL) syringe, 5 mg/kg (Adjusted),intravenous, Q24H, Mago Brian MD, Last Rate: 0 mL/hr at 06/28/19 1751, 370 mg at 06/29/19 1748 insulin lispro (HumaLOG) injection 1-3 Units, 1-3 Units, subcutaneous, Q4H KELIN, Luz Driscoll NP magnesium oxide (MAG-OX) tablet 800 mg, 800 mg, feeding tube, BID, JOSE CRUZ [place], 800 mg at 06/30/19 0905 polyethylene glycol (MIRALAX) packet 17 g, 17 g, feeding tube, Daily, Luz Driscoll NP, 17 g at 06/30/19 0905 primidone (MYSOLINE) tablet 50 mg, 50 mg, feeding tube, BID, Brittany Serrano NP, 50 mg at 06/30/19 0905 propofol (DIPRIVAN) IV, 5-50 mcg/kg/min, intravenous, Titrated, Brittany Serrano NP, Last Rate: 19.35 mL/hr at 06/30/19 1000, 30 mcg/kg/min at 06/30/19 1000 senna 1.76 mg/mL syrup 8.8 mg, 8.8 mg, feeding tube, BID, Brittany Serrano NP, 8.8 mg at 06/30/19 0856 [facility] RPh, PharmD, BCPS, BCCCP SAL[employer] SERVICE PROFESSIONAL * Roxanne [facility] - 06/30/2019 6:51 AM CST Surgical ICU Daily Progress Team: Blue AM Subjective Patient is a 68 y.o. female admitted on 06/28/2019 4:47 PM with chief complaint of SLMF HPI 68y/o Fw PMH HTN//Sz///depression//chronic pain//asthma//GERD SANTI//home O2 who sustained SLMF ->denied hitting head or LOC EMS -> MsO4 -> HoTN -> tourniquet was placed to her LLE ED -> still HoTN -> 2prbc -> hyperkalemia -> tx per protocol Injuries Open periprosthetic tib fib fx (Type III -> gentamycin/Ancef in ER) (R) medial mal fx CTA no vascular injuries 06/28:OR ORIF & WO (L) tib/fib ->partial closer w wound vac (R) medial mal fx splint -> intraop phenylephrine/// insulin infusion. Minimal EBL//1L cryst//UOP 325ml Arrived to SICU intubated///pressors///insulin CIVI Interval History: LR 500 OR (13:00) OR -> ORIF (L)tib fib w (L) vac ORIF (R) Mal w short leg splint NWB BLE Objective Physical Exam: Constitutional: well developed, well nourished, cooperative and obese Head: normocephalic, without obvious abnormality Neurologic: intubated//sedated//nods appropriately Eyes: PERRL, EOMs intact HENT: nares normal, septum midline and lips, mucosa, and tongue normal Neck: supple, symmetrical, trachea midline Chest: normal appearance, no masses or tenderness Respiratory: diminished breath sounds bilateral Cardiovascular: tachycardia and regular rhythm Gastrointestinal: soft, non-tender; bowel sounds present; no masses, no organomegaly Musculoskeletal: extremities normal, warm and well-perfused Pulses: radial: bilateral normal, DP: bilateral normal and PT: bilateral normal Skin: skin color, texture, turgor normal. No rashes or lesions Medications Scheduled Meds:acetaminophen, 1,000 mg, feeding tube, Q6H KELIN atorvastatin, 10 mg, feeding tube, Nightly ceFAZolin, 2,000 mg, intravenous, Q8H KELIN chlorhexidine, 15 mL, mouth/throat, BID docusate, 100 mg, feeding tube, BID esomeprazole DR, 40 mg, feeding tube, Daily gentamicin, 5 mg/kg (Adjusted), intravenous, Q24H insulin lispro, 1-3 Units, subcutaneous, Q4H KELIN magnesium oxide, 800 mg, feeding tube, BID polyethylene glycol, 17 g, feeding tube, Daily primidone, 50 mg, feeding tube, BID senna, 8.8 mg, feeding tube, BID Continuous Infusions:dextrose 5% and Lactated Ringer's, 25 mL/hr, Last Rate: 25 mL/hr (06/29/19 1900) fentaNYL, 12.5-400 mcg/hr, Last Rate: 50 mcg/hr (06/29/19 1800) propofol, 5-50 mcg/kg/min, Last Rate: 25 mcg/kg/min (06/30/19 0319) PRN Meds:.albuterol HFA ??? fentaNYL Vital signs for last 24 hours: Temp: [37.2 ??C (99 ??F)-38.5 ??C (101.3 ??F)] 37.3 ??C (99.1 ??F) Pulse: [98-144] 111 BP: (97-155)/(49-78) 155/68 Resp: [22-26] 22 SpO2: [92 %-100 %] 96 % Arterial Line BP: (90-218)/(43-98) 154/81 FiO2 (%): [40 %] 40 % Hemodynamics: MAP (mmHg): [60-83] 72 Pulmonary Support: O2 Therapy: Supplemental oxygen O2 Del Method: Endotracheal tube FiO2 (%): 40 % Adult Vent Mode: Volume control/Assist control FiO2 (%): 40 % S RR: 22 PEEP/CPAP/EPAP (cm H2O): 5 cm H20 Intake/Output: Intake/Output Summary (Last 24 hours) at 06/30/2019 0651 Last data filed at 06/30/2019 0500 Gross per 24 hour Intake 1904.63 ml Output 1910 ml Net -5.37 ml Lab/Radiology/Diagnostic Review: Laboratory review: Lab results in the last 12 hours: Recent Results (from the past 12 hour(s)) POCT glucose Collection Time: 06/30/19 3:36 AM Result Value Ref Range Glucose, POC 126 70 - 199 mg/dL CBC without differential Collection Time: 06/30/19 4:35 AM Result Value Ref Range WBC 17.1 (H) 3.8 - 9.9 K/cumm Hgb 8.0 (L) 11.9 - 15.5 g/dL Hct 24.2 (L) 35.6 - 45.5 % Plt 188 150 - 400 K/cumm MPV 11.4 9.1 - 12.3 fL RBC 2.87 (L) 3.90 - 5.20 M/cumm MCV 84.3 81.3 - 96.4 fL MCH 27.9 27.1 - 33.3 pg MCHC 33.1 32.3 - 35.7 g/dL RDW CV 18.4 (H) 11.1 - 14.9 % RDW SD 55.6 (H) 35.7 - 48.1 fL NRBC abs 0.05 (H) 0.00 - 0.01 K/cumm POCT glucose Collection Time: 06/30/19 8:07 AM Result Value Ref Range Glucose, POC 140 70 - 199 mg/dL Prepare RBC: 2 Units Collection Time: 06/30/19 10:49 AM Result Value Ref Range Product code [id number] Unit Number [id number] Product Blood Type APOS Dispense Status CROSSMATCHED Product code [id number] Unit Number [id number] Product Blood Type APOS Dispense Status ISSUED CBC with auto differential Collection Time: 06/30/19 11:27 AM Result Value Ref Range WBC 14.0 (H) 3.8 - 9.9 K/cumm Hgb 7.7 (L) 11.9 - 15.5 g/dL Hct 24.0 (L) 35.6 - 45.5 % Plt 166 150 - 400 K/cumm MPV 11.7 9.1 - 12.3 fL RBC 2.78 (L) 3.90 - 5.20 M/cumm MCV 86.3 81.3 - 96.4 fL MCH 27.7 27.1 - 33.3 pg MCHC 32.1 (L) 32.3 - 35.7 g/dL RDW CV 18.5 (H) 11.1 - 14.9 % RDW SD 57.6 (H) 35.7 - 48.1 fL NRBC abs 0.07 (H) 0.00 - 0.01 K/cumm Differential, auto Collection Time: 06/30/19 11:27 AM Result Value Ref Range Neutrophil abs 8.8 (H) 1.7 - 6.5 K/cumm Imm gran abs 0.2 (H) 0.0 - 0.1 K/cumm Lymphocyte abs 2.9 0.8 - 3.3 K/cumm Monocyte abs 1.8 (H) 0.2 - 0.8 K/cumm Eosinophil abs 0.1 0.0 - 0.5 K/cumm Basophil abs 0.0 0.0 - 0.1 K/cumm Neutrophil pct 63.4 % Imm gran pct 1.5 % Lymphocyte pct 20.8 % Monocyte pct 13.1 % Eosinophil pct 0.9 % Basophil pct 0.3 % POC Blood Gas and Chemistries, Venous - Collection Time: 06/30/19 1:27 PM Result Value Ref Range pH, Rj POC 7.36 7.32 - 7.43 pCO2, Rj POC 47 40 - 50 mmHg pO2, Rj POC 43 mmHg Na, POC 138 135 - 145 mmol/L K, POC 3.8 3.3 - 4.9 mmol/L Cl, POC 107 97 - 110 mmol/L Ionized Ca, POC 5.20 (H) 4.50 - 5.10 mg/dL Glucose, POC 132 70 - 199 mg/dL Lactate, POC 1.4 0.7 - 2.2 mmol/L O2 Sat, Rj POC (Gorge) 74 % Base Excess, POC 0.6 mmol/L HCO3, Rj POC 27 20 - 30 mmol/L Hct, POC 23.0 (L) 36.3 - 45.3 % Total Hb, POC 7.7 (L) 11.9 - 15.5 g/dL O2 Sat, Rj POC (Calc) 76 % POCT platelet count and hematocrit Collection Time: 06/30/19 1:28 PM Result Value Ref Range Hematocrit POC 23.1 (L) 36.1 - 44.3 % Platelet POC Juan Manuel 188 140 - 440 K/cumm Recent Results (from the past 24 hour(s)) POCT glucose Collection Time: 06/29/19 7:02 AM Result Value Ref Range Glucose, POC 169 70 - 199 mg/dL POCT glucose Collection Time: 06/29/19 8:05 AM Result Value Ref Range Glucose, POC 134 70 - 199 mg/dL POCT glucose Collection Time: 06/29/19 9:06 AM Result Value Ref Range Glucose, POC 130 70 - 199 mg/dL POCT glucose Collection Time: 06/29/19 10:05 AM Result Value Ref Range Glucose, POC 113 70 - 199 mg/dL POCT glucose Collection Time: 06/29/19 11:13 AM Result Value Ref Range Glucose, POC 116 70 - 199 mg/dL POCT glucose Collection Time: 06/29/19 12:07 PM Result Value Ref Range Glucose, POC 138 70 - 199 mg/dL POCT glucose Collection Time: 06/29/19 1:15 PM Result Value Ref Range Glucose, POC 133 70 - 199 mg/dL POCT glucose Collection Time: 06/29/19 1:58 PM Result Value Ref Range Glucose, POC 121 70 - 199 mg/dL POCT glucose Collection Time: 06/29/19 4:00 PM Result Value Ref Range Glucose, POC 112 70 - 199 mg/dL POCT glucose Collection Time: 06/29/19 4:57 PM Result Value Ref Range Glucose, POC 58 (L) 70 - 199 mg/dL POCT glucose Collection Time: 06/29/19 4:58 PM Result Value Ref Range Glucose, POC 113 70 - 199 mg/dL Gentamicin level, trough Collection Time: 06/29/19 4:59 PM Result Value Ref Range Gentamicin, Trough 1.6 0.1 - 2.0 mcg/mL POCT glucose Collection Time: 06/29/19 5:44 PM Result Value Ref Range Glucose, POC 166 70 - 199 mg/dL POCT glucose Collection Time: 06/29/19 5:45 PM Result Value Ref Range Glucose, POC 133 70 - 199 mg/dL POCT glucose Collection Time: 06/29/19 7:13 PM Result Value Ref Range Glucose, POC 146 70 - 199 mg/dL POCT glucose Collection Time: 06/29/19 7:54 PM Result Value Ref Range Glucose, POC 144 70 - 199 mg/dL POCT glucose Collection Time: 06/29/19 9:17 PM Result Value Ref Range Glucose, POC 128 70 - 199 mg/dL CBC with auto differential Collection Time: 06/29/19 10:35 PM Result Value Ref Range WBC 15.3 (H) 3.8 - 9.9 K/cumm Hgb 6.4 (Critical) 11.9 - 15.5 g/dL Hct 19.9 (L) 35.6 - 45.5 % Plt 178 150 - 400 K/cumm MPV 10.8 9.1 - 12.3 fL RBC 2.36 (L) 3.90 - 5.20 M/cumm MCV 84.3 81.3 - 96.4 fL MCH 27.1 27.1 - 33.3 pg MCHC 32.2 (L) 32.3 - 35.7 g/dL RDW CV 20.6 (H) 11.1 - 14.9 % RDW SD 62.4 (H) 35.7 - 48.1 fL NRBC abs 0.05 (H) 0.00 - 0.01 K/cumm Basic metabolic panel Collection Time: 06/29/19 10:35 PM Result Value Ref Range Sodium 139 135 - 145 mmol/L Potassium, pl 4.6 3.3 - 4.9 mmol/L Chloride 105 97 - 110 mmol/L CO2 30 22 - 32 mmol/L Anion gap 4 2 - 15 mmol/L BUN 22 8 - 25 mg/dL Creatinine 1.14 (H) 0.60 - 1.10 mg/dL Glucose 145 70 - 199 mg/dL Calcium 8.3 (L) 8.5 - 10.3 mg/dL Magnesium Collection Time: 06/29/19 10:35 PM Result Value Ref Range Magnesium 1.7 1.4 - 2.5 mg/dL Differential, auto Collection Time: 06/29/19 10:35 PM Result Value Ref Range Neutrophil abs 8.8 (H) 1.7 - 6.5 K/cumm Imm gran abs 0.2 (H) 0.0 - 0.1 K/cumm Lymphocyte abs 4.7 (H) 0.8 - 3.3 K/cumm Monocyte abs 1.6 (H) 0.2 - 0.8 K/cumm Eosinophil abs 0.1 0.0 - 0.5 K/cumm Basophil abs 0.0 0.0 - 0.1 K/cumm Neutrophil pct 57.3 % Imm gran pct 1.2 % Lymphocyte pct 30.8 % Monocyte pct 10.1 % Eosinophil pct 0.4 % Basophil pct 0.2 % Phosphorus Collection Time: 06/29/19 10:35 PM Result Value Ref Range Phosphorus, pl 3.5 2.3 - 4.5 mg/dL CBC without differential Collection Time: 06/29/19 11:23 PM Result Value Ref Range WBC 14.7 (H) 3.8 - 9.9 K/cumm Hgb 6.5 (L) 11.9 - 15.5 g/dL Hct 20.2 (L) 35.6 - 45.5 % Plt 173 150 - 400 K/cumm MPV 11.4 9.1 - 12.3 fL RBC 2.39 (L) 3.90 - 5.20 M/cumm MCV 84.5 81.3 - 96.4 fL MCH 27.2 27.1 - 33.3 pg MCHC 32.2 (L) 32.3 - 35.7 g/dL RDW CV 20.6 (H) 11.1 - 14.9 % RDW SD 63.5 (H) 35.7 - 48.1 fL NRBC abs 0.04 (H) 0.00 - 0.01 K/cumm POCT glucose Collection Time: 06/29/19 11:46 PM Result Value Ref Range Glucose, POC 136 70 - 199 mg/dL Prepare RBC: 1 Units Collection Time: 06/30/19 12:45 AM Result Value Ref Range Product code [id number] Unit Number [id number] Product Blood Type APOS Dispense Status ISSUED POCT glucose Collection Time: 06/30/19 3:36 AM Result Value Ref Range Glucose, POC 126 70 - 199 mg/dL CBC without differential Collection Time: 06/30/19 4:35 AM Result Value Ref Range WBC 17.1 (H) 3.8 - 9.9 K/cumm Hgb 8.0 (L) 11.9 - 15.5 g/dL Hct 24.2 (L) 35.6 - 45.5 % Plt 188 150 - 400 K/cumm MPV 11.4 9.1 - 12.3 fL RBC 2.87 (L) 3.90 - 5.20 M/cumm MCV 84.3 81.3 - 96.4 fL MCH 27.9 27.1 - 33.3 pg MCHC 33.1 32.3 - 35.7 g/dL RDW CV 18.4 (H) 11.1 - 14.9 % RDW SD 55.6 (H) 35.7 - 48.1 fL NRBC abs 0.05 (H) 0.00 - 0.01 K/cumm Xr Knee Left 1 Or 2 Views Result Date: 06/29/2019 1. Open comminuted periprosthetic fracture of the proximal left tibia 2. Open comminuted fracture of the proximal left fibula 3. Mildly displaced intra- articular right medial malleolus fracture 4. Noacute pelvic fracture. Dictated by: Luh Moffett M.D. The radiology attending physician has personally reviewed this study, and had reviewed and/or edited this written report and agrees with it. Electronically signed by: Gilberto Fuentes M.D. Xr Tibia Fibula Left 2 Views Result Date: 06/29/2019 1. Open comminuted periprosthetic fracture of the proximal left tibia 2. Open comminuted fracture of the proximal left fibula 3. Mildly displaced intra- articular right medial malleolus fracture 4. Noacute pelvic fracture. Dictated by: Luh Moffett M.D. The radiology attending physician has personally reviewed this study, and had reviewed and/or edited this written report and agrees with it. Electronically signed by: Gilberto Fuentes M.D. Xr Tibia Fibula Right 2 Views Result Date: 06/29/2019 1. Open comminuted periprosthetic fracture of the proximal left tibia 2. Open comminuted fracture of the proximal left fibula 3. Mildly displaced intra- articular right medial malleolus fracture 4. Noacute pelvic fracture. Dictated by: Luh Moffett M.D. The radiology attending physician has personally reviewed this study, and had reviewed and/or edited this written report and agrees with it. Electronically signed by: Gilberto Fuentes M.D. Xr Ankle Left 3 Or More Views Result Date: 06/29/2019 1. Open comminuted periprosthetic fracture of the proximal left tibia 2. Open comminuted fracture of the proximal left fibula 3. Mildly displaced intra- articular right medial malleolus fracture 4. Noacute pelvic fracture. Dictated by: Luh oMffett M.D. The radiology attending physician has personally reviewed this study, and had reviewed and/or edited this written report and agrees with it. Electronically signed by: Gilberto Fuentes M.D. Xr Ankle Right 3 Or More Views Result Date: 06/29/2019 1. Open comminuted periprosthetic fracture of the proximal left tibia 2. Open comminuted fracture of the proximal left fibula 3. Mildly displaced intra- articular right medial malleolus fracture 4. Noacute pelvic fracture. Dictated by: Luh Moffett M.D. The radiology attending physician has personally reviewed this study, and had reviewed and/or edited this written report and agrees with it. Electronically signed by: Gilberto Fuentes M.D. Cta Lower Extremity Left Result Date: 06/29/2019 1. Left lower extremity: Three-vessel runoff. 2. Non-opacification of a left peroneal artery proximal segment with distal reconstitution is favored to represent focal vasospasm/stenosis secondary to extrinsic arterial compression from the surrounding muscular edema. No evidence of arterial injury. 3. Markedly comminuted, open, angulated, and displaced periprosthetic fracture of the left proximal tibia. 4. Comminuted, angulated, and displaced fracture of the left proximal fibula. 5. Marked edemathroughout the muscle compartments of the distal left lower extremity. Dictated by: Mikhail Beyer The radiology attending physician has personally reviewed this study, and had reviewed and/or edited this written report and agrees with it. Electronically signed by: Gilberto Fuentes M.D. Xr Chest 1 Vw Portable Result Date: 06/29/2019 1st is made to same day chest CT. There is an endotracheal tube which terminates 1.3 cm above the jesús. A gastric tube projects below the left hemidiaphragm, extending at least to the body of the stomach. Lung volumes are decreased with bibasilar atelectasis. There are right upper lung predominant opacities correlate with areas of groundglass opacity seen on CT and may represent asymmetric pulmonary edema. There is no pleural effusion or pneumothorax. Cardiomediastinal contours are within normal limits accounting for portable technique and low lung volumes. Dictated by: Luh Moffett M.D. The radiology attending physician has personally reviewed this study, and had reviewed and/or edited this written report and agrees with it. Electronically signed by: Gilberto Fuentes M.D. Xr Chest 1 View Result Date: 06/29/2019 Comparison is made to 06/28/2018 6:43 PM. Endotracheal tip is 2.8 cm above the jesús. Gastric tubetip passing into diaphragm with tip collimated off the study. Improving mild bibasilar atelectasis.No pulmonary edema or pneumonic consolidation. No effusion or pneumothorax. Heart size and visible contours are unchanged accounting for patient rotation. Dictated by: Vic Terrell The radiology attending physician has personally reviewed this study, and had reviewed and/or edited this written report and agrees with it. Electronically signed by: Jason Tellez M.D. Xr Femur Left 2 Or More Views Result Date: 06/29/2019 1. Open comminuted periprosthetic fracture of the proximal left tibia 2. Open comminuted fracture of the proximal left fibula 3. Mildly displaced intra- articular right medial malleolus fracture 4. Noacute pelvic fracture. Dictated by: Luh Moffett M.D. The radiology attending physician has personally reviewed this study, and had reviewed and/or edited this written report and agrees with it. Electronically signed by: Gilberto Fuentes M.D. Ct Chest Abdomen Pelvis W Contrast Result Date: 06/29/2019 1. No acute intra-abdominal traumatic injury. 2. Scattered, biapical groundglass opacities with septal line thickening may represent mild pulmonary edema. 3. Mild bibasilar atelectasis. Dictated by: Mikhail Beyer The radiology attending physician has personally reviewed this study, and had reviewed and/or edited this written report and agrees with it. Electronically signed by: Gilberto Fuentes M.D. Xr Pelvis 1 Or 2 Views Result Date: 06/29/2019 1. Open comminuted periprosthetic fracture of the proximal left tibia 2. Open comminuted fracture of the proximal left fibula 3. Mildly displaced intra- articular right medial malleolus fracture 4. Noacute pelvic fracture. Dictated by: Luh Moffett M.D. The radiology attending physician has personally reviewed this study, and had reviewed and/or edited this written report and agrees with it. Electronically signed by: Gilberto Fuentes M.D. Ct Head And Cervical Spine Wo Contrast Result Date: 06/29/2019 1. No acute intracranial abnormality, such as hemorrhage. 2. No evidence of acute fracture in the cervical spine. 3. Recommend follow up of the Incidental enlarged pituitary with MRI pituitary protocol if clinically indicated. Dictated by: Adithya Murphy M.D. The radiology attending physician has personally reviewed this study, and had reviewed and/or edited this written report and agrees with it. Electronically signed by: Krupa Grossman M.D. Assessment/Plan Principal Problem: Open displaced comminuted fracture of shaft of left tibia, type IIIA, IIIB, or IIIC NEURO: #Acute Pain: Goal pain score < 4 Fentanyl CIVI #Agitation requiring sedation protocol RASS goal ~0 Propofol CIVI #Sz Disorder Primidone (UDS + barbiturates) Consider restarting Depakote CV #Elevated Lactate Level LA 3.1 -> 3.9 -> 500 LR -> OR -> #HTN Pain control Metoprolol 5mg q4hrs (hold amlodipine//enteral metoprolol -> OR) 06/12/19:TTE EF~55-60%//no WMA//nl RV PULM: #Acute Respiratory Failure Intubated in ER d/t combativeness//lethargy//AMS ACVC 22/450/40/5 7.46//36//71//27 Cxray -> small lung volumes wet Arrived from OR intubated/sedated BEST in AM GI: Diet: NPO Bowel regimen: Colace//senna//Miralax PUD PPx: PPI (home PPI) ENDO: ICU SSI -> MDSS RENAL: #LUAN Multifactorial -> vol depletion//HoTN//contrast Cr trending down Lab Results Component Value Date CREATININE 1.14 (H) 06/29/2019 Avoid HoTN Avoid volume depletion Avoid nephrotoxins HEME: #ABLA Multifactorial -> tib/fib fx//OR//dilutional/iatrogenic Hb 7.8 -> 6.5 ->1prbc -> 8 -> 7.7 ->OR Lab Results Component Value Date HGB 8.0 (L) 06/30/2019 CTM vac drng//drsgs/ No s/s bleeding CTM CBC/coags ID: #Leukocytosis WBC trending down Afebrile Lab Results Component Value Date WBC 17.1 (H) 06/30/2019 Antibiotics: 06/28:Ancef//Gent -> open fx Cultures: MRSA neg UA -> MSK: #Open tib fib fx S/p SLMF 06/28:ORIF (L)tib fib partial closure w vac 06/30:ORIF (L)tib fib (L)vac NWB #(R) medial mal fx 06/28:s/p splint 06/30: ORIF (R) MAL NWB Intensive Care Unit Standards of Care: Restraints: BUE mittens///soft restraints DVT prophylaxis:held for OR Vascular access: Lovenox 40mg HS Goals of care:Full Code [employer] * Ana Acosta MD - 06/30/2019 6:38 AM CST [facility] Trauma Surgery ICU Daily Progress Subjective Patient is a 68 y.o. female admitted on 06/28/2019 4:47 PM with chief complaint of Chief Complaint Patient presents with ??? Fall Interval History: NAEON. Received 1u PRBC and bumped appropriately. C-collar removed for negative imaging. Objective Physical Exam: GENERAL: WDWN NEURO: Sedated PSYCH: Unable to assess HEENT: normocephalic, atraumatic, neck supple, trachea midline RESP: Equal chest rise on mechanical ventilation, no audible wheezing. CARDIO: RRR on telemetry. ABDOMEN: Soft, ND Ext: BLE casted. Active and Removed Drain / Nasogastric/Orogastric tube / Rectal tube / Gastrostomy/Enterostomy / Chest tube NG/OG Tube Orogastric Left mouth 1 day Urethral Catheter Temperature probe;Double-lumen 16 Fr. less than 1 day Vital signs for last 24 hours: Temp: [37.2 ??C (99 ??F)-38.5 ??C (101.3 ??F)] 37.3 ??C (99.1 ??F) Pulse: [98-144] 111 BP: (97-155)/(49-78) 155/68 Resp: [22-26] 22 SpO2: [92 %-100 %] 96 % Arterial Line BP: (90-218)/(43-98) 154/81 FiO2 (%): [40 %] 40 % Hemodynamics: MAP (mmHg): [60-83] 72 Pulmonary Support: O2 Therapy: Supplemental oxygen O2 Del Method: Endotracheal tube FiO2 (%): 40 % Adult Vent Mode: Volume control/Assist control FiO2 (%): 40 % S RR: 22 PEEP/CPAP/EPAP (cm H2O): 5 cm H20 Intake/Output: I/O this shift: In: 1207.7 [I.V.:467.7; Blood:350; NG/GT:190; IV Piggyback:200] Out: 740 [Urine:640; Drains:100] Lab/Radiology/Diagnostic Review: Recent Results (from the past 72 hour(s)) CBC with auto differential Collection Time: 06/28/19 5:02 PM Result Value Ref Range WBC 6.7 3.8 - 9.9 K/cumm Hgb 9.0 (L) 11.9 - 15.5 g/dL Hct 24.2 (L) 35.6 - 45.5 % Plt 195 150 - 400 K/cumm MPV 11.1 9.1 - 12.3 fL RBC 2.57 (L) 3.90 - 5.20 M/cumm MCV 94.2 81.3 - 96.4 fL MCH 35.0 (H) 27.1 - 33.3 pg MCHC 37.2 (H) 32.3 - 35.7 g/dL RDW CV 26.7 (H) 11.1 - 14.9 % RDW SD 69.5 (H) 35.7 - 48.1 fL NRBC abs 0.04 (H) 0.00 - 0.01 K/cumm Comprehensive metabolic panel Collection Time: 06/28/19 5:02 PM Result Value Ref Range Sodium 141 135 - 145 mmol/L Potassium, pl 6.9 (Critical) 3.3 - 4.9 mmol/L Chloride 103 97 - 110 mmol/L CO2 29 22 - 32 mmol/L Anion gap 9 2 - 15 mmol/L BUN 38 (H) 8 - 25 mg/dL Creatinine 1.50 (H) 0.60 - 1.10 mg/dL Glucose 211 (H) 70 - 199 mg/dL Calcium 8.8 8.5 - 10.3 mg/dL Bilirubin, total 0.2 0.1 - 1.2 mg/dL Protein, pl 6.2 (L) 6.5 - 8.5 g/dL Albumin 3.6 3.5 - 5.0 g/dL Alk phos 77 40 - 130 Units/L ALT 41 7 - 45 Units/L AST 43 10 - 45 Units/L Type and screen Collection Time: 06/28/19 5:02 PM Result Value Ref Range Triston, indirect Negative Protime-INR Collection Time: 06/28/19 5:02 PM Result Value Ref Range PT 12.1 8.6 - 13.0 sec INR 1.1 0.8 - 1.2 aPTT Collection Time: 06/28/19 5:02 PM Result Value Ref Range aPTT 25 25 - 37 sec VerifyNow aspirin Collection Time: 06/28/19 5:02 PM Result Value Ref Range VerifyNow aspirin 609 ARU Differential, auto Collection Time: 06/28/19 5:02 PM Result Value Ref Range Neutrophil abs 3.0 1.7 - 6.5 K/cumm Imm gran abs 0.2 (H) 0.0 - 0.1 K/cumm Lymphocyte abs 3.1 0.8 - 3.3 K/cumm Monocyte abs 0.3 0.2 - 0.8 K/cumm Eosinophil abs 0.1 0.0 - 0.5 K/cumm Basophil abs 0.0 0.0 - 0.1 K/cumm Neutrophil pct 44.6 % Imm gran pct 2.5 % Lymphocyte pct 46.5 % Monocyte pct 5.1 % Eosinophil pct 0.9 % Basophil pct 0.4 % Critical Result Callback Chemistry Collection Time: 06/28/19 5:02 PM Result Value Ref Range Date Notified [id number] Time Notified 1815 TestName Potassium Called/Read Back Mago RN Credentials RN Called By Katelynn Hanley Creatine kinase (CK), total Collection Time: 06/28/19 5:02 PM Result Value Ref Range CK 81 30 - 200 Units/L Ethanol Collection Time: 06/28/19 5:02 PM Result Value Ref Range Ethanol <10 <=10 mg/dL Troponin I Collection Time: 06/28/19 5:02 PM Result Value Ref Range Troponin I <0.03 0.00 - 0.03 ng/mL POCT glucose Collection Time: 06/28/19 5:18 PM Result Value Ref Range Glucose, POC 161 70 - 199 mg/dL POCT lactate Collection Time: 06/28/19 5:23 PM Result Value Ref Range Lactate POC i-STAT 1.5 0.7 - 2.2 mmol/L POCT creatinine Collection Time: 06/28/19 5:27 PM Result Value Ref Range Creatinine POC 1.4 (H) 0.6 - 1.1 mg/dL Blood gas, venous Collection Time: 06/28/19 5:35 PM Result Value Ref Range pH, Venous 7.27 (L) 7.32 - 7.43 PCO2, Venous 63 (H) 40 - 50 mmHg PO2, Venous 30 mmHg HCO3 Venous, Calculated 30 20 - 30 mmol/L BE, venous 1 mmol/L Thrombocyte inhibited fibrinogen (FIBTEM) Collection Time: 06/28/19 5:35 PM Result Value Ref Range Maximum Clot Firm-Fibrinogen 12 9 - 29 mm Extrensic thromboelastometry (EXTEM) Collection Time: 06/28/19 5:35 PM Result Value Ref Range Clotting Time-Extrinsic 81 (H) 42 - 60 sec Clot Formation Time-Extrinsic 145 (H) 45 - 131 sec Angle-Extrinsic 62 (L) 65 - 83 Degree Max Clot Firmness-Extrinsic 51 (L) 53 - 75 mm Lysis 30-Extrinsic 100 85 - 100 % Urinalysis reflex to microscopic and culture Urine, indwelling catheter Collection Time: 06/28/19 6:54 PM Result Value Ref Range Color, ur Yellow Yellow Clarity, ur Clear Clear Specific gravity, ur 1.013 1.010 - 1.025 pH, urine 6 Protein, ur ql 1+ (A) Negative Glucose, ur ql Negative Negative Ketones, ur Negative Negative Bilirubin, ur Negative Negative Blood, ur Negative Negative Urobilinogen, ur <2.0 <2.0 mg/dL Nitrite, ur Negative Negative Leukocyte esterase, ur 1+ (A) Negative UA reflex comment Reflex to microscopic UA will be performed. Drugs of Abuse Screen, Urine with Reflex Confirmation Collection Time: 06/28/19 6:54 PM Result Value Ref Range Amphetamine, ur Not Detected CutOff 500ng/mL Barbiturates, ur Detected (A) CutOff 200ng/mL Benzodiazepines, ur Not Detected CutOff 100ng/mL Cannabinoids, ur Not Detected CutOff 50 ng/mL Cocaine, ur Not Detected CutOff 150ng/mL Fentanyl, Ur Detected (A) Cutoff 1 ng/mL Methadone, ur Not Detected CutOff 300ng/mL Opiates, ur Detected (A) CutOff 300ng/mL Oxycodone, ur Not Detected CutOff 100ng/mL Phencyclidine, ur Not Detected CutOff 25 ng/mL Urine Creatinine 42 mg/dL Blood gas, arterial Collection Time: 06/28/19 6:54 PM Result Value Ref Range pH, Art POC 7.45 7.35 - 7.45 PCO2, Arterial 39 35 - 45 mmHg PO2, Arterial 192 (H) 83 - 108 mmHg HCO3 Art (Calculated) 28 20 - 30 mmol/L BE, art 3 mmol/L O2 Sat Art (Measured) 99 (H) 90 - 95 % Potassium, whole blood Collection Time: 06/28/19 6:54 PM Result Value Ref Range Potassium, bld 5.6 (H) 3.3 - 4.9 mmol/L Urinalysis, microscopic only Collection Time: 06/28/19 6:54 PM Result Value Ref Range WBC, ur 6-10 (A) 0 - 5 /HPF RBC, ur 0-2 0 - 2 /HPF Hyaline casts, ur 11-20 (A) 0 - 10 /LPF Culture Reflex Comment Reflex conditions for urine culture (WBC >10) not met. Fentanyl Confirmation, Urine Collection Time: 06/28/19 6:54 PM Result Value Ref Range Fentanyl Conf, Ur Confirmed Positive Cutoff 1 ng/mL Acetylfentanyl Conf, Ur Does Not Confirm CutOff 2 ng/mL Acrylfentanyl Conf, Ur Does Not Confirm CutOff 2 ng/mL Furanylfentanyl Conf, Ur Does Not Confirm CutOff 2 ng/mL Fentanyl Metabolite (Norfentanyl) Conf, Ur Does Not Confirm CutOff 10 ng/mL Opiates Confirmation, Urine Collection Time: 06/28/19 6:54 PM Result Value Ref Range Codeine Conf, Ur Does Not Confirm CutOff 50 ng/mL 6- Acetylmorphine Conf, Ur Does Not Confirm CutOff 10 ng/mL Oxycodone Conf, Ur Does Not Confirm CutOff 50 ng/mL Hydrocodone Conf, Ur Confirmed Positive CutOff 50 ng/mL Morphine Conf, Ur Confirmed Positive CutOff 50 ng/mL Hydromorphone Conf, Ur Does Not Confirm CutOff 50 ng/mL Oxymorphone Conf, Ur Does Not Confirm CutOff 50 ng/mL POCT hCG, urine Collection Time: 06/28/19 7:23 PM Result Value Ref Range HCG, ur, POC Negative Lot Number [id number] QC Backgroud Clear Acceptable QC Control Line Acceptable POCT glucose Collection Time: 06/28/19 7:31 PM Result Value Ref Range Glucose, POC 176 70 - 199 mg/dL POCT glucose Collection Time: 06/28/19 8:26 PM Result Value Ref Range Glucose, POC 267 (H) 70 - 199 mg/dL CBC with auto differential Collection Time: 06/28/19 8:42 PM Result Value Ref Range WBC 20.3 (H) 3.8 - 9.9 K/cumm Hgb 8.5 (L) 11.9 - 15.5 g/dL Hct 26.4 (L) 35.6 - 45.5 % Plt 188 150 - 400 K/cumm MPV 11.3 9.1 - 12.3 fL RBC 3.07 (L) 3.90 - 5.20 M/cumm MCV 86.0 81.3 - 96.4 fL MCH 27.7 27.1 - 33.3 pg MCHC 32.2 (L) 32.3 - 35.7 g/dL RDW CV 20.5 (H) 11.1 - 14.9 % RDW SD 63.5 (H) 35.7 - 48.1 fL NRBC abs 0.02 (H) 0.00 - 0.01 K/cumm Differential, auto Collection Time: 06/28/19 8:42 PM Result Value Ref Range Neutrophil abs 15.4 (H) 1.7 - 6.5 K/cumm Imm gran abs 0.6 (H) 0.0 - 0.1 K/cumm Lymphocyte abs 2.8 0.8 - 3.3 K/cumm Monocyte abs 1.2 (H) 0.2 - 0.8 K/cumm Eosinophil abs 0.2 0.0 - 0.5 K/cumm Basophil abs 0.1 0.0 - 0.1 K/cumm Neutrophil pct 76.0 % Imm gran pct 3.1 % Lymphocyte pct 13.9 % Monocyte pct 5.8 % Eosinophil pct 0.9 % Basophil pct 0.3 % Prepare RBC Collection Time: 06/28/19 8:51 PM Result Value Ref Range Product code C8294C33 Unit Number [id number] Product Blood Type ONEG Dispense Status RETURNED Product code J3582P65 Unit Number [id number] Product Blood Type OPOS Dispense Status RETURNED Product code X7360M21 Unit Number [id number] Product Blood Type ONEG Dispense Status RETURNED Product code E2442H56 Unit Number [id number] Product Blood Type OPOS Dispense Status RETURNED Product code Z0924A77 Unit Number [id number] Product Blood Type OPOS Dispense Status PRESUMED TRANSFUSED Product code A4306Q09 Unit Number [id number] Product Blood Type OPOS Dispense Status PRESUMED TRANSFUSED Prepare RBC: 2 Units Collection Time: 06/28/19 9:18 PM Result Value Ref Range Product code T1762F93 Unit Number [id number] Product Blood Type OPOS Dispense Status RETURNED Product code F9000O50 Unit Number [id number] Product Blood Type OPOS Dispense Status RETURNED POCT glucose Collection Time: 06/28/19 9:39 PM Result Value Ref Range Glucose, POC 274 (H) 70 - 199 mg/dL Type and screen Collection Time: 06/28/19 10:02 PM Result Value Ref Range ABO Rh A Positive Triston, indirect Negative POC Blood Gas and Chemistries, Venous - Collection Time: 06/28/19 10:25 PM Result Value Ref Range pH, Rj POC 7.35 7.32 - 7.43 pCO2, Rj POC 52 (H) 40 - 50 mmHg pO2, Rj POC 29 mmHg Na, POC 138 135 - 145 mmol/L K, POC 4.9 3.3 - 4.9 mmol/L Cl, POC 102 97 - 110 mmol/L Ionized Ca, POC 5.38 (H) 4.50 - 5.10 mg/dL Glucose, POC 236 (H) 70 - 199 mg/dL Lactate, POC 3.3 (H) 0.7 - 2.2 mmol/L O2 Sat, Rj POC (Gorge) 52 % Base Excess, POC 2.1 mmol/L HCO3, Rj POC 29 20 - 30 mmol/L Hct, POC 24.0 (L) 36.3 - 45.3 % Total Hb, POC 7.9 (L) 11.9 - 15.5 g/dL O2 Sat, Rj POC (Calc) 51 % Check Sample Collection Time: 06/28/19 10:33 PM Result Value Ref Range ABO Rh A Positive POCT glucose Collection Time: 06/28/19 11:33 PM Result Value Ref Range Glucose, POC 228 (H) 70 - 199 mg/dL Glucose comment 1 RN Notified Beta-hydroxybutyrate Collection Time: 06/29/19 12:00 AM Result Value Ref Range Beta-Hydroxybutyrate 0.1 0.0 - 0.5 mmol/L CBC with auto differential Collection Time: 06/29/19 12:00 AM Result Value Ref Range WBC 21.3 (H) 3.8 - 9.9 K/cumm Hgb 8.5 (L) 11.9 - 15.5 g/dL Hct 26.0 (L) 35.6 - 45.5 % Plt 225 150 - 400 K/cumm MPV 11.1 9.1 - 12.3 fL RBC 3.02 (L) 3.90 - 5.20 M/cumm MCV 86.1 81.3 - 96.4 fL MCH 28.1 27.1 - 33.3 pg MCHC 32.7 32.3 - 35.7 g/dL RDW CV 20.8 (H) 11.1 - 14.9 % RDW SD 63.0 (H) 35.7 - 48.1 fL NRBC abs 0.02 (H) 0.00 - 0.01 K/cumm Magnesium Collection Time: 06/29/19 12:00 AM Result Value Ref Range Magnesium 1.5 1.4 - 2.5 mg/dL Phosphorus Collection Time: 06/29/19 12:00 AM Result Value Ref Range Phosphorus, pl 2.8 2.3 - 4.5 mg/dL Basic metabolic panel Collection Time: 06/29/19 12:00 AM Result Value Ref Range Sodium 137 135 - 145 mmol/L Potassium, pl 5.1 (H) 3.3 - 4.9 mmol/L Chloride 102 97 - 110 mmol/L CO2 26 22 - 32 mmol/L Anion gap 9 2 - 15 mmol/L BUN 38 (H) 8 - 25 mg/dL Creatinine 1.41 (H) 0.60 - 1.10 mg/dL Glucose 198 70 - 199 mg/dL Calcium 9.7 8.5 - 10.3 mg/dL Potassium, whole blood Collection Time: 06/29/19 12:00 AM Result Value Ref Range Potassium, bld 4.6 3.3 - 4.9 mmol/L Calcium, ionized Collection Time: 06/29/19 12:00 AM Result Value Ref Range Calcium, Ionized 4.75 4.50 - 5.10 mg/dL Blood gas, arterial Collection Time: 06/29/19 12:00 AM Result Value Ref Range pH, Art POC 7.46 (H) 7.35 - 7.45 PCO2, Arterial 36 35 - 45 mmHg PO2, Arterial 71 (L) 83 - 108 mmHg HCO3 Art (Calculated) 27 20 - 30 mmol/L BE, art 3 mmol/L O2 Sat Art (Measured) 95 90 - 95 % Lactate, whole blood Collection Time: 06/29/19 12:00 AM Result Value Ref Range Lactate, bld 3.1 (H) 0.7 - 2.0 mmol/L Differential, auto Collection Time: 06/29/19 12:00 AM Result Value Ref Range Neutrophil abs 16.5 (H) 1.7 - 6.5 K/cumm Imm gran abs 0.6 (H) 0.0 - 0.1 K/cumm Lymphocyte abs 2.7 0.8 - 3.3 K/cumm Monocyte abs 1.4 (H) 0.2 - 0.8 K/cumm Eosinophil abs 0.1 0.0 - 0.5 K/cumm Basophil abs 0.1 0.0 - 0.1 K/cumm Neutrophil pct 77.7 % Imm gran pct 2.6 % Lymphocyte pct 12.7 % Monocyte pct 6.4 % Eosinophil pct 0.3 % Basophil pct 0.3 % Valproic acid level, total Collection Time: 06/29/19 12:00 AM Result Value Ref Range Valproic Acid <15.0 (L) 50.0 - 100.0 mcg/mL POCT glucose Collection Time: 06/29/19 12:02 AM Result Value Ref Range Glucose, POC 195 70 - 199 mg/dL POCT glucose Collection Time: 06/29/19 1:16 AM Result Value Ref Range Glucose, POC 205 (H) 70 - 199 mg/dL POCT glucose Collection Time: 06/29/19 1:54 AM Result Value Ref Range Glucose, POC 194 70 - 199 mg/dL POCT glucose Collection Time: 06/29/19 3:01 AM Result Value Ref Range Glucose, POC 192 70 - 199 mg/dL POCT glucose Collection Time: 06/29/19 3:57 AM Result Value Ref Range Glucose, POC 187 70 - 199 mg/dL POCT glucose Collection Time: 06/29/19 5:04 AM Result Value Ref Range Glucose, POC 166 70 - 199 mg/dL CBC with auto differential Collection Time: 06/29/19 5:07 AM Result Value Ref Range WBC 21.0 (H) 3.8 - 9.9 K/cumm Hgb 7.8 (L) 11.9 - 15.5 g/dL Hct 24.5 (L) 35.6 - 45.5 % Plt 249 150 - 400 K/cumm MPV 11.4 9.1 - 12.3 fL RBC 2.88 (L) 3.90 - 5.20 M/cumm MCV 85.1 81.3 - 96.4 fL MCH 27.1 27.1 - 33.3 pg MCHC 31.8 (L) 32.3 - 35.7 g/dL RDW CV 20.4 (H) 11.1 - 14.9 % RDW SD 61.4 (H) 35.7 - 48.1 fL NRBC abs 0.05 (H) 0.00 - 0.01 K/cumm Lactate, whole blood Collection Time: 06/29/19 5:07 AM Result Value Ref Range Lactate, bld 3.9 (H) 0.7 - 2.0 mmol/L Differential, auto Collection Time: 06/29/19 5:07 AM Result Value Ref Range Neutrophil abs 15.2 (H) 1.7 - 6.5 K/cumm Imm gran abs 0.4 (H) 0.0 - 0.1 K/cumm Lymphocyte abs 3.5 (H) 0.8 - 3.3 K/cumm Monocyte abs 1.8 (H) 0.2 - 0.8 K/cumm Eosinophil abs 0.0 0.0 - 0.5 K/cumm Basophil abs 0.0 0.0 - 0.1 K/cumm Neutrophil pct 72.7 % Imm gran pct 2.1 % Lymphocyte pct 16.5 % Monocyte pct 8.4 % Eosinophil pct 0.1 % Basophil pct 0.2 % POCT glucose Collection Time: 06/29/19 6:15 AM Result Value Ref Range Glucose, POC 170 70 - 199 mg/dL POCT glucose Collection Time: 06/29/19 7:02 AM Result Value Ref Range Glucose, POC 169 70 - 199 mg/dL POCT glucose Collection Time: 06/29/19 8:05 AM Result Value Ref Range Glucose, POC 134 70 - 199 mg/dL POCT glucose Collection Time: 06/29/19 9:06 AM Result Value Ref Range Glucose, POC 130 70 - 199 mg/dL POCT glucose Collection Time: 06/29/19 10:05 AM Result Value Ref Range Glucose, POC 113 70 - 199 mg/dL POCT glucose Collection Time: 06/29/19 11:13 AM Result Value Ref Range Glucose, POC 116 70 - 199 mg/dL POCT glucose Collection Time: 06/29/19 12:07 PM Result Value Ref Range Glucose, POC 138 70 - 199 mg/dL POCT glucose Collection Time: 06/29/19 1:15 PM Result Value Ref Range Glucose, POC 133 70 - 199 mg/dL POCT glucose Collection Time: 06/29/19 1:58 PM Result Value Ref Range Glucose, POC 121 70 - 199 mg/dL POCT glucose Collection Time: 06/29/19 4:00 PM Result Value Ref Range Glucose, POC 112 70 - 199 mg/dL POCT glucose Collection Time: 06/29/19 4:57 PM Result Value Ref Range Glucose, POC 58 (L) 70 - 199 mg/dL POCT glucose Collection Time: 06/29/19 4:58 PM Result Value Ref Range Glucose, POC 113 70 - 199 mg/dL Gentamicin level, trough Collection Time: 06/29/19 4:59 PM Result Value Ref Range Gentamicin, Trough 1.6 0.1 - 2.0 mcg/mL POCT glucose Collection Time: 06/29/19 5:44 PM Result Value Ref Range Glucose, POC 166 70 - 199 mg/dL POCT glucose Collection Time: 06/29/19 5:45 PM Result Value Ref Range Glucose, POC 133 70 - 199 mg/dL POCT glucose Collection Time: 06/29/19 7:13 PM Result Value Ref Range Glucose, POC 146 70 - 199 mg/dL POCT glucose Collection Time: 06/29/19 7:54 PM Result Value Ref Range Glucose, POC 144 70 - 199 mg/dL POCT glucose Collection Time: 06/29/19 9:17 PM Result Value Ref Range Glucose, POC 128 70 - 199 mg/dL CBC with auto differential Collection Time: 06/29/19 10:35 PM Result Value Ref Range WBC 15.3 (H) 3.8 - 9.9 K/cumm Hgb 6.4 (Critical) 11.9 - 15.5 g/dL Hct 19.9 (L) 35.6 - 45.5 % Plt 178 150 - 400 K/cumm MPV 10.8 9.1 - 12.3 fL RBC 2.36 (L) 3.90 - 5.20 M/cumm MCV 84.3 81.3 - 96.4 fL MCH 27.1 27.1 - 33.3 pg MCHC 32.2 (L) 32.3 - 35.7 g/dL RDW CV 20.6 (H) 11.1 - 14.9 % RDW SD 62.4 (H) 35.7 - 48.1 fL NRBC abs 0.05 (H) 0.00 - 0.01 K/cumm Basic metabolic panel Collection Time: 06/29/19 10:35 PM Result Value Ref Range Sodium 139 135 - 145 mmol/L Potassium, pl 4.6 3.3 - 4.9 mmol/L Chloride 105 97 - 110 mmol/L CO2 30 22 - 32 mmol/L Anion gap 4 2 - 15 mmol/L BUN 22 8 - 25 mg/dL Creatinine 1.14 (H) 0.60 - 1.10 mg/dL Glucose 145 70 - 199 mg/dL Calcium 8.3 (L) 8.5 - 10.3 mg/dL Magnesium Collection Time: 06/29/19 10:35 PM Result Value Ref Range Magnesium 1.7 1.4 - 2.5 mg/dL Differential, auto Collection Time: 06/29/19 10:35 PM Result Value Ref Range Neutrophil abs 8.8 (H) 1.7 - 6.5 K/cumm Imm gran abs 0.2 (H) 0.0 - 0.1 K/cumm Lymphocyte abs 4.7 (H) 0.8 - 3.3 K/cumm Monocyte abs 1.6 (H) 0.2 - 0.8 K/cumm Eosinophil abs 0.1 0.0 - 0.5 K/cumm Basophil abs 0.0 0.0 - 0.1 K/cumm Neutrophil pct 57.3 % Imm gran pct 1.2 % Lymphocyte pct 30.8 % Monocyte pct 10.1 % Eosinophil pct 0.4 % Basophil pct 0.2 % Phosphorus Collection Time: 06/29/19 10:35 PM Result Value Ref Range Phosphorus, pl 3.5 2.3 - 4.5 mg/dL CBC without differential Collection Time: 06/29/19 11:23 PM Result Value Ref Range WBC 14.7 (H) 3.8 - 9.9 K/cumm Hgb 6.5 (L) 11.9 - 15.5 g/dL Hct 20.2 (L) 35.6 - 45.5 % Plt 173 150 - 400 K/cumm MPV 11.4 9.1 - 12.3 fL RBC 2.39 (L) 3.90 - 5.20 M/cumm MCV 84.5 81.3 - 96.4 fL MCH 27.2 27.1 - 33.3 pg MCHC 32.2 (L) 32.3 - 35.7 g/dL RDW CV 20.6 (H) 11.1 - 14.9 % RDW SD 63.5 (H) 35.7 - 48.1 fL NRBC abs 0.04 (H) 0.00 - 0.01 K/cumm POCT glucose Collection Time: 06/29/19 11:46 PM Result Value Ref Range Glucose, POC 136 70 - 199 mg/dL Prepare RBC: 1 Units Collection Time: 06/30/19 12:45 AM Result Value Ref Range Product code E7989X85 Unit Number [id number] Product Blood Type APOS Dispense Status ISSUED POCT glucose Collection Time: 06/30/19 3:36 AM Result Value Ref Range Glucose, POC 126 70 - 199 mg/dL CBC without differential Collection Time: 06/30/19 4:35 AM Result Value Ref Range WBC 17.1 (H) 3.8 - 9.9 K/cumm Hgb 8.0 (L) 11.9 - 15.5 g/dL Hct 24.2 (L) 35.6 - 45.5 % Plt 188 150 - 400 K/cumm MPV 11.4 9.1 - 12.3 fL RBC 2.87 (L) 3.90 - 5.20 M/cumm MCV 84.3 81.3 - 96.4 fL MCH 27.9 27.1 - 33.3 pg MCHC 33.1 32.3 - 35.7 g/dL RDW CV 18.4 (H) 11.1 - 14.9 % RDW SD 55.6 (H) 35.7 - 48.1 fL NRBC abs 0.05 (H) 0.00 - 0.01 K/cumm Xr Knee Left 1 Or 2 Views Result Date: 06/28/2019 1. Open comminuted periprosthetic fracture of the proximal left tibia 2. Open comminuted fracture of the proximal left fibula 3. Mildly displaced intra- articular right medial malleolus fracture 4. Noacute pelvic fracture. Dictated by: Luh Moffett M.D. Xr Tibia Fibula Left 2 Views Result Date: 06/28/2019 1. Open comminuted periprosthetic fracture of the proximal left tibia 2. Open comminuted fracture of the proximal left fibula 3. Mildly displaced intra- articular right medial malleolus fracture 4. Noacute pelvic fracture. Dictated by: Luh Moffett M.D. Xr Tibia Fibula Right 2 Views Result Date: 06/28/2019 1. Open comminuted periprosthetic fracture of the proximal left tibia 2. Open comminuted fracture of the proximal left fibula 3. Mildly displaced intra- articular right medial malleolus fracture 4. Noacute pelvic fracture. Dictated by: Luh Moffett M.D. Xr Ankle Left 3 Or More Views Result Date: 06/28/2019 1. Open comminuted periprosthetic fracture of the proximal left tibia 2. Open comminuted fracture of the proximal left fibula 3. Mildly displaced intra- articular right medial malleolus fracture 4. Noacute pelvic fracture. Dictated by: Luh Moffett M.D. Xr Ankle Right 3 Or More Views Result Date: 06/28/2019 1. Open comminuted periprosthetic fracture of the proximal left tibia 2. Open comminuted fracture of the proximal left fibula 3. Mildly displaced intra- articular right medial malleolus fracture 4. Noacute pelvic fracture. Dictated by: Luh Moffett M.D. Cta Lower Extremity Left Result Date: 06/29/2019 1. Left lower extremity: Three-vessel runoff. 2. Non-opacification of a left peroneal artery proximal segment with distal reconstitution is favored to represent focal vasospasm/stenosis secondary to extrinsic arterial compression from the surrounding muscular edema. No evidence of arterial injury. 3. Markedly comminuted, open, angulated, and displaced periprosthetic fracture of the left proximal tibia. 4. Comminuted, angulated, and displaced fracture of the left proximal fibula. 5. Marked muscular intensity adjacent edema of the distal left lower extremity. Dictated by: Mikhail Beyer Xr Chest 1 Vw Portable Result Date: 06/28/2019 1st is made to same day chest CT. There is an endotracheal tube which terminates 1.3 cm above the jesús. A gastric tube projects below the left hemidiaphragm, extending at least to the body of the stomach. Lung volumes are decreased with bibasilar atelectasis. There are right upper lung predominant opacities correlate with areas of groundglass opacity seen on CT and may represent asymmetric pulmonary edema. There is no pleural effusion or pneumothorax. Cardiomediastinal contours are within normal limits accounting for portable technique and low lung volumes. Dictated by: Luh Moffett M.D. Xr Femur Left 2 Or More Views Result Date: 06/28/2019 1. Open comminuted periprosthetic fracture of the proximal left tibia 2. Open comminuted fracture of the proximal left fibula 3. Mildly displaced intra- articular right medial malleolus fracture 4. Noacute pelvic fracture. Dictated by: Luh Moffett M.D. Ct Chest Abdomen Pelvis W Contrast Result Date: 06/28/2019 1. No acute intra-abdominal traumatic injury. 2. Scattered, biapical groundglass opacities with septal line thickening may represent mild pulmonary edema. 3. Mild bibasilar atelectasis. Dictated by: Mikhail Beyer Xr Pelvis 1 Or 2 Views Result Date: 06/28/2019 1. Open comminuted periprosthetic fracture of the proximal left tibia 2. Open comminuted fracture of the proximal left fibula 3. Mildly displaced intra- articular right medial malleolus fracture 4. Noacute pelvic fracture. Dictated by: Luh Moffett M.D. Ct Head And Cervical Spine Wo Contrast Result Date: 06/29/2019 1. No acute intracranial abnormality, such as hemorrhage. 2. No evidence of acute fracture in the cervical spine. 3. Recommend follow up of the Incidental enlarged pituitary with MRI pituitary protocol if clinically indicated. Dictated by: Adithya Murphy M.D. Trauma Surgical plan: #Acute respiratory failure -wean ventilator as tolerated #L tibia/fibula fracture -s/p ORIF 06/28 -ortho plan return to OR 06/30 #R medial malleolus fracture -ortho plan OR 06/30 Ana Acosta M.D. General Surgery, PGY-4 6:38 AM [phone] Cosigned by Milton Leiva MD at 06/30/2019 11:18 AM HOME SALES SERVICE PROFESSIONAL SALES SERVICE PROFESSIONAL SALES SERVICE PROFESSIONAL Associated attestation - Milton Leiva MD - 06/30/2019 11:18 AM HOME SALES SERVICE PROFESSIONAL I have seen and examined the patient on the date of service as documented in the resident note and agree with the findings and plan as discussed with the resident. Milton Leiva MD * Migel Merchant MD - 06/30/2019 5:26 AM CST Images from the original note were not included. Orthopaedic Trauma Service Daily Progress Note Subjective 68 y.o. female POD2 s/p: Procedure(s): IRRIGATION AND DEBRIDEMENT - TIBIA OPEN REDUCTION INTERNAL FIXATION TIBIA - PROXIMAL - SYNTHES OPEN REDUCTION INTERNAL FIXATION - ANKLE Remains intubated sedated. Tachy overnight w/ elevated WBC but would cleared for OR. Appropriate response of Hbg to 1U PRBC. LUAN improving. Planning for OR today Current Facility-Administered Medications Medication Dose Route Frequency Last Rate Last Dose ??? acetaminophen (TYLENOL) 32 mg/mL oral solution 1,000 mg 1,000 mg feeding tube Q6H KELIN 1,000 mg at 06/30/19 1106 ??? albuterol HFA (PROVENTIL HFA,VENTOLIN HFA,PROAIR HFA) 90 mcg/actuation inhaler 2 puff 2 puff inhalation Q6H PRN (RT) ??? atorvastatin (LIPITOR) tablet 10 mg 10 mg feeding tube Nightly 10 mg at 06/29/192032 ??? ceFAZolin (ANCEF) 2,000 mg/20 mL in sterile water (premix) 2,000 mg 2,000 mg intravenous Q8H KELIN 400 mL/hr at 06/30/19 0826 2,000 mg at 06/30/19 08 ??? chlorhexidine (PERIDEX) 0.12 % solution 15 mL 15 mL mouth/throat BID 15 mL at 06/30/19 0905 ??? cyclobenzaprine (FLEXERIL) tablet 5 mg 5 mg feeding tube TID PRN 5 mg at 06/30/19 1106 ??? dextrose 5% and Lactated Ringer's infusion 25 mL/hr intravenous Continuous 25 mL/hr at 600 25 mL/hr at 06/30/19 1600 ??? docusate (COLACE) 10 mg/mL oral liquid 100 mg 100 mg feeding tube BID 100 mg at 06/30/19 0856 ??? esomeprazole DR (NexIUM) extended release oral suspension 40 mg 40 mg feeding tube Daily 40 mg at 06/30/19904 ??? fentaNYL (SUBLIMAZE) bolus from bag 50 mcg 50 mcg intravenous Q30 Min PRN 50 mcg at 06/30/19 0825 ??? fentaNYL 2500 mcg/50 mL (50 mcg/mL) infusion (premix) 12.5-400 mcg/hr intravenous Titrated 2 mL/hr at 06/30/191599 100 mcg/hr at 06/30/19 1600 ??? gabapentin (NEURONTIN) 50 mg/mL oral solution 300 mg 300 mg feeding tube Q8H 300 mg at 0 ??? insulin lispro (HumaLOG) injection 1-3 Units 1-3 Units subcutaneous Q4H KELIN ??? magnesium oxide (MAG-OX) tablet 800 mg 800 mg feeding tube BID 800 mg at 06/30/19904 ??? metoprolol (LOPRESSOR) injection 5 mg 5 mg intravenous Q4H 5 mg at 06/30/19 1106 ??? oxyCODONE (ROXICODONE) 1 mg/mL oral solution 10 mg 10 mg feeding tube Q4H 10 mg at 06/30/19 1106 ??? polyethylene glycol (MIRALAX) packet 17 g 17 g feeding tube Daily 17 g at 06/30/19904 ??? primidone (MYSOLINE) tablet 50 mg 50 mg feeding tube BID 50 mg at 06/30/19904 ??? propofol (DIPRIVAN) IV 5-50 mcg/kg/min intravenous Titrated 19.35 mL/hr at 06/30/19 1600 30 mcg/kg/min at 06/30/19 1600 ??? senna 1.76 mg/mL syrup 8.8 mg 8.8 mg feeding tube BID 8.8 mg at 06/30/19 0856 Objective Vitals: 24hr Min/Max: Temp Min: 36 ??C (96.8 ??F) Max: 38.5 ??C (101.3 ??F) Pulse Min: 98 Max: 143 BP Min: 97/66 Max: 165/121 Resp Min: 13 Max: 23 SpO2 Min: 89 % Max: 100 % I/O last 2 completed shifts: In: 1904.6 [I.V.:897.6; Blood:350; NG/GT:380; IV Piggyback:277] Out: 191 [Urine:1610; Drains:300] I/O this shift: In: 1592.2 [I.V.:512.2; Blood:350; NG/GT:200; IV Piggyback:530] Out: 450 [Urine:450] Physical Exam: Gen: NAD Neuro: A&Ox3 Resp: NLB CV: regular rate by palpation of peripheral pulses MSK: RUE In restraint, no gross deformity LUE SICU placing A line No gross deformity RLE Toes wwp splint c/d/i LLE Toes wwp Maintain LLS Labs: Hematology Lab History Some values may be hidden. Unless noted otherwise, only the newest values recorded on each date aredisplayed. Labs - Hematology Latest Ref Range 06/13/19 06/28/19 06/29/19 06/30/19 WBC 3.8 - 9.9 K/cumm 6.5 20.3 (A) 14.7 (A) 17.5 (A) Total Hb, POC 11.9 - 15.5 g/dL 10.4 (A) 7.9 (A) 6.5 (A) 9.0 (A) Hct 35.6 - 45.5 % 33.9 (A) 26.4 (A) 20.2 (A) 27.7 (A) Plt 150 - 400 K/cumm 180 188 173 189 Neutrophil abs 1.7 - 6.5 K/cumm 2,900 15.4 (A) 8.8 (A) 8.8 (A) Some values recorded on this date have been omitted. Some abnormal values recorded on this date have been omitted. (A) Abnormal value Chem/LFT Lab History Some values may be hidden. Unless noted otherwise, only the newest values recorded on each date aredisplayed. Labs-Chem/LFT Latest Ref Range 11/06/13/19 06/28/19 06/29/19 Sodium 135 - 145 mmol/L 140 138 141 (C) 139 Potassium Lvl 3.3 - 5.1 mmol/L 4.9 5.1 BUN 8 - 25 mg/dL 17 22 Creatinine 0.60 - 1.10 mg/dL 0.8 0.8 1.50 (A) (C) 1.14 (A) Bilirubin, total 0.1 - 1.2 mg/dL 0.2 (C) AST 10 - 45 Units/L 43 (C) ALT 7 - 45 Units/L 41 (C) CrCl- Actual Body Weight (Cockcroft-Gault) 62.4 87.4 Some values recorded on this date have been omitted. Some abnormal values recorded on this date have been omitted. (A) Abnormal value (C) Corrected value Comments are available for some flowsheets but are not being displayed. Assessment/Plan Celestina Ewing is a 68 y.o. female who is POD 2 s/p I&D ORIF L proximal tibia periprosthetic fx. Plan for OR today for repeat I&D, possible closure. PLAN: 1. L type 3 open periprosthetic tibia fx 1. Repeat I&D today 2. Still small open wound at apex 1. Continue Ancef/Gent for 24 hours after closure today 3. NWB LLE 2. RLE medial mal fx 1. Maintain splint 2. Plan for ORIF today 3. NWB LLE 3. DVT ppx w/ SCDs, lovenox 40 qpm 4. LUAN - CTM 5. Anemia: transfusion goal 7 6. PT/OT/OOB 7. Appreciate critical care help Migel Merchant MD Department of Orthopaedic Surgery [facility] in [place] If questions arise overnight, the OTS team can be reached at: [phone] (Floor Resident ) [phone] (Consult Resident) SALES SERVICE PROFESSIONAL * Ina Flor PA - 06/29/2019 7:35 PM CST Surgical ICU Daily Progress Team: Blue PM Subjective Patient is a 68 y.o. female admitted on 06/28/2019 4:47 PM with chief complaint of polytrauma s/p fall. Interval History: - Plan for OR tomorrow - Hg <7. Transfuse 1 unit - Repeat CBC in am - Replete Mg Objective Physical Exam: Gen: NAD Neuro: Alert, intermittently nods, CANTU, LE in nury wrap, moves toes CV: RRR, S1,S2 no m/r/g Pulm: CTA bilat, respirations even, unlabored GI: hypoactive BS, abd soft, mild tenderness, non distended Delarosa with CYU Extremities: Warm,BLE in nury wrap, cap refill <2 seconds. Medications Scheduled Meds:acetaminophen, 1,000 mg, feeding tube, Q6H KELIN amLODIPine, 10 mg, feeding tube, Daily atorvastatin, 10 mg, feeding tube, Nightly ceFAZolin, 2,000 mg, intravenous, Q8H KELIN chlorhexidine, 15 mL, mouth/throat, BID [START ON 06/30/2019] docusate, 100 mg, feeding tube, BID [START ON 06/30/2019] esomeprazole DR, 40 mg, feeding tube, Daily gentamicin, 5 mg/kg (Adjusted), intravenous, Q24H insulin lispro, 1-3 Units, subcutaneous, Q4H KELIN metoprolol (LOPRESSOR) tablet/capsule, 50 mg, feeding tube, BID polyethylene glycol, 17 g, feeding tube, Daily primidone, 50 mg, feeding tube, BID [START ON 06/30/2019] senna, 8.8 mg, feeding tube, BID Continuous Infusions:dextrose 5% and Lactated Ringer's, 25 mL/hr, Last Rate: 25 mL/hr (06/29/191799) fentaNYL, 12.5-400 mcg/hr, Last Rate: 50 mcg/hr (06/29/191799) propofol, 5-50 mcg/kg/min, Last Rate: 20 mcg/kg/min (06/29/191799) PRN Meds:.albuterol HFA ??? fentaNYL Vital signs for last 24 hours: Temp: [35.6 ??C (96.1 ??F)-38.5 ??C (101.3 ??F)] 38.3 ??C (100.9 ??F) Pulse: [84-144] 129 BP: (68-154)/(36-80) 100/78 Resp: [22-26] 22 SpO2: [92 %-100 %] 98 % Arterial Line BP: (116-218)/(50-85) 130/52 FiO2 (%): [40 %] 40 % Hemodynamics: MAP (mmHg): [50-97] 83 Pulmonary Support: O2 Therapy: Supplemental oxygen O2 Del Method: Endotracheal tube FiO2 (%): 40 % Adult Vent Mode: Volume control/Assist control FiO2 (%): 40 % S RR: 22 PEEP/CPAP/EPAP (cm H2O): 5 cm H20 Intake/Output: Intake/Output Summary (Last 24 hours) at 06/29/2019 1935 Last data filed at 06/29/2019 1800 Gross per 24 hour Intake 4342.99 ml Output 3555 ml Net 787.99 ml Lab/Radiology/Diagnostic Review: Laboratory review: Lab results in the last 12 hours: Recent Results (from the past 12 hour(s)) POCT glucose Collection Time: 06/29/19 1:58 PM Result Value Ref Range Glucose, POC 121 70 - 199 mg/dL POCT glucose Collection Time: 06/29/19 4:00 PM Result Value Ref Range Glucose, POC 112 70 - 199 mg/dL POCT glucose Collection Time: 06/29/19 4:57 PM Result Value Ref Range Glucose, POC 58 (L) 70 - 199 mg/dL POCT glucose Collection Time: 06/29/19 4:58 PM Result Value Ref Range Glucose, POC 113 70 - 199 mg/dL Gentamicin level, trough Collection Time: 06/29/19 4:59 PM Result Value Ref Range Gentamicin, Trough 1.6 0.1 - 2.0 mcg/mL POCT glucose Collection Time: 06/29/19 5:44 PM Result Value Ref Range Glucose, POC 166 70 - 199 mg/dL POCT glucose Collection Time: 06/29/19 5:45 PM Result Value Ref Range Glucose, POC 133 70 - 199 mg/dL POCT glucose Collection Time: 06/29/19 7:13 PM Result Value Ref Range Glucose, POC 146 70 - 199 mg/dL POCT glucose Collection Time: 06/29/19 7:54 PM Result Value Ref Range Glucose, POC 144 70 - 199 mg/dL POCT glucose Collection Time: 06/29/19 9:17 PM Result Value Ref Range Glucose, POC 128 70 - 199 mg/dL CBC with auto differential Collection Time: 06/29/19 10:35 PM Result Value Ref Range WBC 15.3 (H) 3.8 - 9.9 K/cumm Hgb 6.4 (Critical) 11.9 - 15.5 g/dL Hct 19.9 (L) 35.6 - 45.5 % Plt 178 150 - 400 K/cumm MPV 10.8 9.1 - 12.3 fL RBC 2.36 (L) 3.90 - 5.20 M/cumm MCV 84.3 81.3 - 96.4 fL MCH 27.1 27.1 - 33.3 pg MCHC 32.2 (L) 32.3 - 35.7 g/dL RDW CV 20.6 (H) 11.1 - 14.9 % RDW SD 62.4 (H) 35.7 - 48.1 fL NRBC abs 0.05 (H) 0.00 - 0.01 K/cumm Basic metabolic panel Collection Time: 06/29/19 10:35 PM Result Value Ref Range Sodium 139 135 - 145 mmol/L Potassium, pl 4.6 3.3 - 4.9 mmol/L Chloride 105 97 - 110 mmol/L CO2 30 22 - 32 mmol/L Anion gap 4 2 - 15 mmol/L BUN 22 8 - 25 mg/dL Creatinine 1.14 (H) 0.60 - 1.10 mg/dL Glucose 145 70 - 199 mg/dL Calcium 8.3 (L) 8.5 - 10.3 mg/dL Magnesium Collection Time: 06/29/19 10:35 PM Result Value Ref Range Magnesium 1.7 1.4 - 2.5 mg/dL Differential, auto Collection Time: 06/29/19 10:35 PM Result Value Ref Range Neutrophil abs 8.8 (H) 1.7 - 6.5 K/cumm Imm gran abs 0.2 (H) 0.0 - 0.1 K/cumm Lymphocyte abs 4.7 (H) 0.8 - 3.3 K/cumm Monocyte abs 1.6 (H) 0.2 - 0.8 K/cumm Eosinophil abs 0.1 0.0 - 0.5 K/cumm Basophil abs 0.0 0.0 - 0.1 K/cumm Neutrophil pct 57.3 % Imm gran pct 1.2 % Lymphocyte pct 30.8 % Monocyte pct 10.1 % Eosinophil pct 0.4 % Basophil pct 0.2 % Phosphorus Collection Time: 06/29/19 10:35 PM Result Value Ref Range Phosphorus, pl 3.5 2.3 - 4.5 mg/dL CBC without differential Collection Time: 06/29/19 11:23 PM Result Value Ref Range WBC 14.7 (H) 3.8 - 9.9 K/cumm Hgb 6.5 (L) 11.9 - 15.5 g/dL Hct 20.2 (L) 35.6 - 45.5 % Plt 173 150 - 400 K/cumm MPV 11.4 9.1 - 12.3 fL RBC 2.39 (L) 3.90 - 5.20 M/cumm MCV 84.5 81.3 - 96.4 fL MCH 27.2 27.1 - 33.3 pg MCHC 32.2 (L) 32.3 - 35.7 g/dL RDW CV 20.6 (H) 11.1 - 14.9 % RDW SD 63.5 (H) 35.7 - 48.1 fL NRBC abs 0.04 (H) 0.00 - 0.01 K/cumm POCT glucose Collection Time: 06/29/19 11:46 PM Result Value Ref Range Glucose, POC 136 70 - 199 mg/dL Prepare RBC: 1 Units Collection Time: 06/30/19 12:45 AM Result Value Ref Range Product code [id number] Unit Number [id number] Product Blood Type APOS Dispense Status ISSUED Recent Results (from the past 24 hour(s)) POCT glucose Collection Time: 06/28/19 8:26 PM Result Value Ref Range Glucose, POC 267 (H) 70 - 199 mg/dL CBC with auto differential Collection Time: 06/28/19 8:42 PM Result Value Ref Range WBC 20.3 (H) 3.8 - 9.9 K/cumm Hgb 8.5 (L) 11.9 - 15.5 g/dL Hct 26.4 (L) 35.6 - 45.5 % Plt 188 150 - 400 K/cumm MPV 11.3 9.1 - 12.3 fL RBC 3.07 (L) 3.90 - 5.20 M/cumm MCV 86.0 81.3 - 96.4 fL MCH 27.7 27.1 - 33.3 pg MCHC 32.2 (L) 32.3 - 35.7 g/dL RDW CV 20.5 (H) 11.1 - 14.9 % RDW SD 63.5 (H) 35.7 - 48.1 fL NRBC abs 0.02 (H) 0.00 - 0.01 K/cumm Differential, auto Collection Time: 06/28/19 8:42 PM Result Value Ref Range Neutrophil abs 15.4 (H) 1.7 - 6.5 K/cumm Imm gran abs 0.6 (H) 0.0 - 0.1 K/cumm Lymphocyte abs 2.8 0.8 - 3.3 K/cumm Monocyte abs 1.2 (H) 0.2 - 0.8 K/cumm Eosinophil abs 0.2 0.0 - 0.5 K/cumm Basophil abs 0.1 0.0 - 0.1 K/cumm Neutrophil pct 76.0 % Imm gran pct 3.1 % Lymphocyte pct 13.9 % Monocyte pct 5.8 % Eosinophil pct 0.9 % Basophil pct 0.3 % Prepare RBC Collection Time: 06/28/19 8:51 PM Result Value Ref Range Product code C9000R12 Unit Number [id number] Product Blood Type ONEG Dispense Status RETURNED Product code G4501F12 Unit Number [id number] Product Blood Type OPOS Dispense Status RETURNED Product code [id number] Unit Number [id number] Product Blood Type ONEG Dispense Status RETURNED Product code Z0560C10 Unit Number [id number] Product Blood Type OPOS Dispense Status RETURNED Product code P5694O10 Unit Number [id number] Product Blood Type OPOS Dispense Status PRESUMED TRANSFUSED Product code X3190O21 Unit Number [id number] Product Blood Type OPOS Dispense Status PRESUMED TRANSFUSED Prepare RBC: 2 Units Collection Time: 06/28/19 9:18 PM Result Value Ref Range Product code D0316K91 Unit Number [id number] Product Blood Type OPOS Dispense Status RETURNED Product code J0037L48 Unit Number [id number] Product Blood Type OPOS Dispense Status RETURNED POCT glucose Collection Time: 06/28/19 9:39 PM Result Value Ref Range Glucose, POC 274 (H) 70 - 199 mg/dL Type and screen Collection Time: 06/28/19 10:02 PM Result Value Ref Range ABO Rh A Positive Triston, indirect Negative POC Blood Gas and Chemistries, Venous - Collection Time: 06/28/19 10:25 PM Result Value Ref Range pH, Rj POC 7.35 7.32 - 7.43 pCO2, Rj POC 52 (H) 40 - 50 mmHg pO2, Rj POC 29 mmHg Na, POC 138 135 - 145 mmol/L K, POC 4.9 3.3 - 4.9 mmol/L Cl, POC 102 97 - 110 mmol/L Ionized Ca, POC 5.38 (H) 4.50 - 5.10 mg/dL Glucose, POC 236 (H) 70 - 199 mg/dL Lactate, POC 3.3 (H) 0.7 - 2.2 mmol/L O2 Sat, Rj POC (Gorge) 52 % Base Excess, POC 2.1 mmol/L HCO3, Rj POC 29 20 - 30 mmol/L Hct, POC 24.0 (L) 36.3 - 45.3 % Total Hb, POC 7.9 (L) 11.9 - 15.5 g/dL O2 Sat, Rj POC (Calc) 51 % Check Sample Collection Time: 06/28/19 10:33 PM Result Value Ref Range ABO Rh A Positive POCT glucose Collection Time: 06/28/19 11:33 PM Result Value Ref Range Glucose, POC 228 (H) 70 - 199 mg/dL Glucose comment 1 RN Notified Beta-hydroxybutyrate Collection Time: 06/29/19 12:00 AM Result Value Ref Range Beta-Hydroxybutyrate 0.1 0.0 - 0.5 mmol/L CBC with auto differential Collection Time: 06/29/19 12:00 AM Result Value Ref Range WBC 21.3 (H) 3.8 - 9.9 K/cumm Hgb 8.5 (L) 11.9 - 15.5 g/dL Hct 26.0 (L) 35.6 - 45.5 % Plt 225 150 - 400 K/cumm MPV 11.1 9.1 - 12.3 fL RBC 3.02 (L) 3.90 - 5.20 M/cumm MCV 86.1 81.3 - 96.4 fL MCH 28.1 27.1 - 33.3 pg MCHC 32.7 32.3 - 35.7 g/dL RDW CV 20.8 (H) 11.1 - 14.9 % RDW SD 63.0 (H) 35.7 - 48.1 fL NRBC abs 0.02 (H) 0.00 - 0.01 K/cumm Magnesium Collection Time: 06/29/19 12:00 AM Result Value Ref Range Magnesium 1.5 1.4 - 2.5 mg/dL Phosphorus Collection Time: 06/29/19 12:00 AM Result Value Ref Range Phosphorus, pl 2.8 2.3 - 4.5 mg/dL Basic metabolic panel Collection Time: 06/29/19 12:00 AM Result Value Ref Range Sodium 137 135 - 145 mmol/L Potassium, pl 5.1 (H) 3.3 - 4.9 mmol/L Chloride 102 97 - 110 mmol/L CO2 26 22 - 32 mmol/L Anion gap 9 2 - 15 mmol/L BUN 38 (H) 8 - 25 mg/dL Creatinine 1.41 (H) 0.60 - 1.10 mg/dL Glucose 198 70 - 199 mg/dL Calcium 9.7 8.5 - 10.3 mg/dL Potassium, whole blood Collection Time: 06/29/19 12:00 AM Result Value Ref Range Potassium, bld 4.6 3.3 - 4.9 mmol/L Calcium, ionized Collection Time: 06/29/19 12:00 AM Result Value Ref Range Calcium, Ionized 4.75 4.50 - 5.10 mg/dL Blood gas, arterial Collection Time: 06/29/19 12:00 AM Result Value Ref Range pH, Art POC 7.46 (H) 7.35 - 7.45 PCO2, Arterial 36 35 - 45 mmHg PO2, Arterial 71 (L) 83 - 108 mmHg HCO3 Art (Calculated) 27 20 - 30 mmol/L BE, art 3 mmol/L O2 Sat Art (Measured) 95 90 - 95 % Lactate, whole blood Collection Time: 06/29/19 12:00 AM Result Value Ref Range Lactate, bld 3.1 (H) 0.7 - 2.0 mmol/L Differential, auto Collection Time: 06/29/19 12:00 AM Result Value Ref Range Neutrophil abs 16.5 (H) 1.7 - 6.5 K/cumm Imm gran abs 0.6 (H) 0.0 - 0.1 K/cumm Lymphocyte abs 2.7 0.8 - 3.3 K/cumm Monocyte abs 1.4 (H) 0.2 - 0.8 K/cumm Eosinophil abs 0.1 0.0 - 0.5 K/cumm Basophil abs 0.1 0.0 - 0.1 K/cumm Neutrophil pct 77.7 % Imm gran pct 2.6 % Lymphocyte pct 12.7 % Monocyte pct 6.4 % Eosinophil pct 0.3 % Basophil pct 0.3 % Valproic acid level, total Collection Time: 06/29/19 12:00 AM Result Value Ref Range Valproic Acid <15.0 (L) 50.0 - 100.0 mcg/mL POCT glucose Collection Time: 06/29/19 12:02 AM Result Value Ref Range Glucose, POC 195 70 - 199 mg/dL POCT glucose Collection Time: 06/29/19 1:16 AM Result Value Ref Range Glucose, POC 205 (H) 70 - 199 mg/dL POCT glucose Collection Time: 06/29/19 1:54 AM Result Value Ref Range Glucose, POC 194 70 - 199 mg/dL POCT glucose Collection Time: 06/29/19 3:01 AM Result Value Ref Range Glucose, POC 192 70 - 199 mg/dL POCT glucose Collection Time: 06/29/19 3:57 AM Result Value Ref Range Glucose, POC 187 70 - 199 mg/dL POCT glucose Collection Time: 06/29/19 5:04 AM Result Value Ref Range Glucose, POC 166 70 - 199 mg/dL CBC with auto differential Collection Time: 06/29/19 5:07 AM Result Value Ref Range WBC 21.0 (H) 3.8 - 9.9 K/cumm Hgb 7.8 (L) 11.9 - 15.5 g/dL Hct 24.5 (L) 35.6 - 45.5 % Plt 249 150 - 400 K/cumm MPV 11.4 9.1 - 12.3 fL RBC 2.88 (L) 3.90 - 5.20 M/cumm MCV 85.1 81.3 - 96.4 fL MCH 27.1 27.1 - 33.3 pg MCHC 31.8 (L) 32.3 - 35.7 g/dL RDW CV 20.4 (H) 11.1 - 14.9 % RDW SD 61.4 (H) 35.7 - 48.1 fL NRBC abs 0.05 (H) 0.00 - 0.01 K/cumm Lactate, whole blood Collection Time: 06/29/19 5:07 AM Result Value Ref Range Lactate, bld 3.9 (H) 0.7 - 2.0 mmol/L Differential, auto Collection Time: 06/29/19 5:07 AM Result Value Ref Range Neutrophil abs 15.2 (H) 1.7 - 6.5 K/cumm Imm gran abs 0.4 (H) 0.0 - 0.1 K/cumm Lymphocyte abs 3.5 (H) 0.8 - 3.3 K/cumm Monocyte abs 1.8 (H) 0.2 - 0.8 K/cumm Eosinophil abs 0.0 0.0 - 0.5 K/cumm Basophil abs 0.0 0.0 - 0.1 K/cumm Neutrophil pct 72.7 % Imm gran pct 2.1 % Lymphocyte pct 16.5 % Monocyte pct 8.4 % Eosinophil pct 0.1 % Basophil pct 0.2 % POCT glucose Collection Time: 06/29/19 6:15 AM Result Value Ref Range Glucose, POC 170 70 - 199 mg/dL POCT glucose Collection Time: 06/29/19 7:02 AM Result Value Ref Range Glucose, POC 169 70 - 199 mg/dL POCT glucose Collection Time: 06/29/19 8:05 AM Result Value Ref Range Glucose, POC 134 70 - 199 mg/dL POCT glucose Collection Time: 06/29/19 9:06 AM Result Value Ref Range Glucose, POC 130 70 - 199 mg/dL POCT glucose Collection Time: 06/29/19 10:05 AM Result Value Ref Range Glucose, POC 113 70 - 199 mg/dL POCT glucose Collection Time: 06/29/19 11:13 AM Result Value Ref Range Glucose, POC 116 70 - 199 mg/dL POCT glucose Collection Time: 06/29/19 12:07 PM Result Value Ref Range Glucose, POC 138 70 - 199 mg/dL POCT glucose Collection Time: 06/29/19 1:15 PM Result Value Ref Range Glucose, POC 133 70 - 199 mg/dL POCT glucose Collection Time: 06/29/19 1:58 PM Result Value Ref Range Glucose, POC 121 70 - 199 mg/dL POCT glucose Collection Time: 06/29/19 4:00 PM Result Value Ref Range Glucose, POC 112 70 - 199 mg/dL POCT glucose Collection Time: 06/29/19 4:57 PM Result Value Ref Range Glucose, POC 58 (L) 70 - 199 mg/dL POCT glucose Collection Time: 06/29/19 4:58 PM Result Value Ref Range Glucose, POC 113 70 - 199 mg/dL Gentamicin level, trough Collection Time: 06/29/19 4:59 PM Result Value Ref Range Gentamicin, Trough 1.6 0.1 - 2.0 mcg/mL POCT glucose Collection Time: 06/29/19 5:44 PM Result Value Ref Range Glucose, POC 166 70 - 199 mg/dL POCT glucose Collection Time: 06/29/19 5:45 PM Result Value Ref Range Glucose, POC 133 70 - 199 mg/dL POCT glucose Collection Time: 06/29/19 7:13 PM Result Value Ref Range Glucose, POC 146 70 - 199 mg/dL Xr Knee Left 1 Or 2 Views Result Date: 06/29/2019 1. Open comminuted periprosthetic fracture of the proximal left tibia 2. Open comminuted fracture of the proximal left fibula 3. Mildly displaced intra- articular right medial malleolus fracture 4. Noacute pelvic fracture. Dictated by: Luh Moffett M.D. The radiology attending physician has personally reviewed this study, and had reviewed and/or edited this written report and agrees with it. Electronically signed by: Gilberto Fuentes M.D. Xr Tibia Fibula Left 2 Views Result Date: 06/29/2019 1. Open comminuted periprosthetic fracture of the proximal left tibia 2. Open comminuted fracture of the proximal left fibula 3. Mildly displaced intra- articular right medial malleolus fracture 4. Noacute pelvic fracture. Dictated by: Luh Moffett M.D. The radiology attending physician has personally reviewed this study, and had reviewed and/or edited this written report and agrees with it. Electronically signed by: Gilberto Fuentes M.D. Xr Tibia Fibula Right 2 Views Result Date: 06/29/2019 1. Open comminuted periprosthetic fracture of the proximal left tibia 2. Open comminuted fracture of the proximal left fibula 3. Mildly displaced intra- articular right medial malleolus fracture 4. Noacute pelvic fracture. Dictated by: Luh Moffett M.D. The radiology attending physician has personally reviewed this study, and had reviewed and/or edited this written report and agrees with it. Electronically signed by: Gilberto Fuentes M.D. Xr Ankle Left 3 Or More Views Result Date: 06/29/2019 1. Open comminuted periprosthetic fracture of the proximal left tibia 2. Open comminuted fracture of the proximal left fibula 3. Mildly displaced intra- articular right medial malleolus fracture 4. Noacute pelvic fracture. Dictated by: Luh Moffett M.D. The radiology attending physician has personally reviewed this study, and had reviewed and/or edited this written report and agrees with it. Electronically signed by: Gilberto Fuentes M.D. Xr Ankle Right 3 Or More Views Result Date: 06/29/2019 1. Open comminuted periprosthetic fracture of the proximal left tibia 2. Open comminuted fracture of the proximal left fibula 3. Mildly displaced intra- articular right medial malleolus fracture 4. Noacute pelvic fracture. Dictated by: Luh Moffett M.D. The radiology attending physician has personally reviewed this study, and had reviewed and/or edited this written report and agrees with it. Electronically signed by: Gilberto Fuentes M.D. Cta Lower Extremity Left Result Date: 06/29/2019 1. Left lower extremity: Three-vessel runoff. 2. Non-opacification of a left peroneal artery proximal segment with distal reconstitution is favored to represent focal vasospasm/stenosis secondary to extrinsic arterial compression from the surrounding muscular edema. No evidence of arterial injury. 3. Markedly comminuted, open, angulated, and displaced periprosthetic fracture of the left proximal tibia. 4. Comminuted, angulated, and displaced fracture of the left proximal fibula. 5. Marked edemathroughout the muscle compartments of the distal left lower extremity. Dictated by: Mikhail Beyer The radiology attending physician has personally reviewed this study, and had reviewed and/or edited this written report and agrees with it. Electronically signed by: Gilberto Fuentes M.D. Xr Chest 1 Vw Portable Result Date: 06/29/2019 1st is made to same day chest CT. There is an endotracheal tube which terminates 1.3 cm above the jesús. A gastric tube projects below the left hemidiaphragm, extending at least to the body of the stomach. Lung volumes are decreased with bibasilar atelectasis. There are right upper lung predominant opacities correlate with areas of groundglass opacity seen on CT and may represent asymmetric pulmonary edema. There is no pleural effusion or pneumothorax. Cardiomediastinal contours are within normal limits accounting for portable technique and low lung volumes. Dictated by: Luh Moffett M.D. The radiology attending physician has personally reviewed this study, and had reviewed and/or edited this written report and agrees with it. Electronically signed by: Gilberto Fuentes M.D. Xr Chest 1 View Result Date: 06/29/2019 Comparison is made to 06/28/2018 6:43 PM. Endotracheal tip is 2.8 cm above the jesús. Gastric tubetip passing into diaphragm with tip collimated off the study. Improving mild bibasilar atelectasis.No pulmonary edema or pneumonic consolidation. No effusion or pneumothorax. Heart size and visible contours are unchanged accounting for patient rotation. Dictated by: Vic Terrell The radiology attending physician has personally reviewed this study, and had reviewed and/or edited this written report and agrees with it. Electronically signed by: Jason Tellez M.D. Xr Femur Left 2 Or More Views Result Date: 06/29/2019 1. Open comminuted periprosthetic fracture of the proximal left tibia 2. Open comminuted fracture of the proximal left fibula 3. Mildly displaced intra- articular right medial malleolus fracture 4. Noacute pelvic fracture. Dictated by: Luh Moffett M.D. The radiology attending physician has personally reviewed this study, and had reviewed and/or edited this written report and agrees with it. Electronically signed by: Gilberto Fuentes M.D. Ct Chest Abdomen Pelvis W Contrast Result Date: 06/29/2019 1. No acute intra-abdominal traumatic injury. 2. Scattered, biapical groundglass opacities with septal line thickening may represent mild pulmonary edema. 3. Mild bibasilar atelectasis. Dictated by: Mikhail Beyer The radiology attending physician has personally reviewed this study, and had reviewed and/or edited this written report and agrees with it. Electronically signed by: Gilberto Fuentes M.D. Xr Pelvis 1 Or 2 Views Result Date: 06/29/2019 1. Open comminuted periprosthetic fracture of the proximal left tibia 2. Open comminuted fracture of the proximal left fibula 3. Mildly displaced intra- articular right medial malleolus fracture 4. Noacute pelvic fracture. Dictated by: Luh Moffett M.D. The radiology attending physician has personally reviewed this study, and had reviewed and/or edited this written report and agrees with it. Electronically signed by: Gilberto Fuentes M.D. Ct Head And Cervical Spine Wo Contrast Result Date: 06/29/2019 1. No acute intracranial abnormality, such as hemorrhage. 2. No evidence of acute fracture in the cervical spine. 3. Recommend follow up of the Incidental enlarged pituitary with MRI pituitary protocol if clinically indicated. Dictated by: Adithya Murphy M.D. The radiology attending physician has personally reviewed this study, and had reviewed and/or edited this written report and agrees with it. Electronically signed by: Krupa Grossman M.D. Assessment/Plan Principal Problem: Open displaced comminuted fracture of shaft of left tibia, type IIIA, IIIB, or IIIC NEURO: #Acute Pain: - Fentanyl gtt - Pain goal <4 #Agitation requiring sedation protocol - Propofol gtt for RASS 0 to -2 #Seizure disorder: chronic, per medical record -Per last found med list in medical record, patient takes Primidone and Depakote. -Positive for barbituates on UDS -continue primidone ?? #chronic and acute falls: -06/28: CT head and c-spine negative -clear collar cleared today CV: #HTN, chronic: -Records show pt taking different agents at different times -Restarted metoprolol in AM with hold parameters and amlodipine - re-evaluate and clarify meds when able ?? ECHO 06/12/19- EF 55-60%, trace TR, mild AR, grade I diastolic dysfunction, otherwise normal?? PULM: #Acute Respiratory Failure: unclear what prompted intubation in ED, per anesthesia combativeness vsover narcotization vs threatened airway Currently remains intubated for OR tomorrow - ACVC 22/450/40/5 - Plan to PSV post op - vap ppx GI: Diet: NPO, meds per tube Bowel regimen: colace, senna #GERD - Continue home PPI ENDO: #Hyperglycemia: no known history DM - Hgb A1c 6.2 in May. - Insulin gtt, weaned off today - Continue MDSSI RENAL: #LUAN: likely 2/2 hypovolemia - Cr 1.41-->1.14 - Adequate UOP - CTM Lab Results Component Value Date CREATININE 1.41 (H) 06/29/2019 HEME: #ABLA: 2/2 trama, surgery - Hg 7.8-->6.4. Repeat CBC 6.5 - Transfuse 1 unit prbc - Repeat CBC in am -No s/s bleeding, continue to monitor closely Lab Results Component Value Date HGB 7.8 (L) 06/29/2019 ID: #Leukocytosis: likely reactive 2/2 trauma, and surgery - WBC 21 - Continue abx until fractures are closed - Afebrile - CTM Lab Results Component Value Date WBC 21.0 (H) 06/29/2019 Antibiotics: Gentamycin Ancef MSK: #Left open tib/fib fracture: 2/2 fall -S/p I/D, ORIF, splint, partial close and wound vac 06/28. -Ortho Trauma following. -Plan to return to OR for further repair zahida -NWB -tdap given in ED ?? #Right medial mal fracture: 2/2 fall -S/p washout and splint 06/28. -Ortho Trauma following. -Plan to return to OR for further repair or Wednesday -NWB Intensive Care Unit Standards of Care: Restraints: none DVT prophylaxis: holding for OR Vascular access: sara TINAJERO Goals of care: Full code Assessment and plan has been reviewed with attending, JOSE CRUZ Castellon [employer] * Ana Acosta MD - 06/29/2019 10:20 AM CST [facility] Trauma Surgery ICU Daily Progress Subjective Patient is a 68 y.o. female admitted on 06/28/2019 4:47 PM with chief complaint of Chief Complaint Patient presents with ??? Fall Interval History: ORIF of L leg yesterday. Off phenylephrine. Objective Physical Exam: GENERAL: WDWN NEURO: Sedated PSYCH: Unable to assess HEENT: normocephalic, atraumatic, neck supple, trachea midline, C-collar in place. RESP: Equal chest rise on mechanical ventilation, no audible wheezing. CARDIO: RRR on telemetry. ABDOMEN: Soft, ND Ext: BLE casted. Active and Removed Drain / Nasogastric/Orogastric tube / Rectal tube / Gastrostomy/Enterostomy / Chest tube NG/OG Tube Orogastric Left mouth 1 day Urethral Catheter Temperature probe;Double-lumen 16 Fr. less than 1 day Vital signs for last 24 hours: Temp: [35.6 ??C (96.1 ??F)-37.9 ??C (100.2 ??F)] 37.9 ??C (100.2 ??F) Pulse: [76-144] 144 BP: (57-159)/(36-144) 100/78 Resp: [9-26] 23 SpO2: [88 %-100 %] 95 % Arterial Line BP: (125-218)/(50-85) 218/76 FiO2 (%): [40 %] 40 % Hemodynamics: MAP (mmHg): [48-150] 83 Pulmonary Support: O2 Therapy: Supplemental oxygen O2 Del Method: Endotracheal tube FiO2 (%): 40 % Adult Vent Mode: Volume control/Assist control FiO2 (%): 40 % S RR: 22 PEEP/CPAP/EPAP (cm H2O): 5 cm H20 Intake/Output: I/O this shift: In: 225 [I.V.:75; NG/GT:130; IV Piggyback:20] Out: 410 [Urine:410] Lab/Radiology/Diagnostic Review: Recent Results (from the past 72 hour(s)) CBC with auto differential Collection Time: 06/28/19 5:02 PM Result Value Ref Range WBC 6.7 3.8 - 9.9 K/cumm Hgb 9.0 (L) 11.9 - 15.5 g/dL Hct 24.2 (L) 35.6 - 45.5 % Plt 195 150 - 400 K/cumm MPV 11.1 9.1 - 12.3 fL RBC 2.57 (L) 3.90 - 5.20 M/cumm MCV 94.2 81.3 - 96.4 fL MCH 35.0 (H) 27.1 - 33.3 pg MCHC 37.2 (H) 32.3 - 35.7 g/dL RDW CV 26.7 (H) 11.1 - 14.9 % RDW SD 69.5 (H) 35.7 - 48.1 fL NRBC abs 0.04 (H) 0.00 - 0.01 K/cumm Comprehensive metabolic panel Collection Time: 06/28/19 5:02 PM Result Value Ref Range Sodium 141 135 - 145 mmol/L Potassium, pl 6.9 (Critical) 3.3 - 4.9 mmol/L Chloride 103 97 - 110 mmol/L CO2 29 22 - 32 mmol/L Anion gap 9 2 - 15 mmol/L BUN 38 (H) 8 - 25 mg/dL Creatinine 1.50 (H) 0.60 - 1.10 mg/dL Glucose 211 (H) 70 - 199 mg/dL Calcium 8.8 8.5 - 10.3 mg/dL Bilirubin, total 0.2 0.1 - 1.2 mg/dL Protein, pl 6.2 (L) 6.5 - 8.5 g/dL Albumin 3.6 3.5 - 5.0 g/dL Alk phos 77 40 - 130 Units/L ALT 41 7 - 45 Units/L AST 43 10 - 45 Units/L Type and screen Collection Time: 06/28/19 5:02 PM Result Value Ref Range Triston, indirect Negative Protime-INR Collection Time: 06/28/19 5:02 PM Result Value Ref Range PT 12.1 8.6 - 13.0 sec INR 1.1 0.8 - 1.2 aPTT Collection Time: 06/28/19 5:02 PM Result Value Ref Range aPTT 25 25 - 37 sec VerifyNow aspirin Collection Time: 06/28/19 5:02 PM Result Value Ref Range VerifyNow aspirin 609 ARU Differential, auto Collection Time: 06/28/19 5:02 PM Result Value Ref Range Neutrophil abs 3.0 1.7 - 6.5 K/cumm Imm gran abs 0.2 (H) 0.0 - 0.1 K/cumm Lymphocyte abs 3.1 0.8 - 3.3 K/cumm Monocyte abs 0.3 0.2 - 0.8 K/cumm Eosinophil abs 0.1 0.0 - 0.5 K/cumm Basophil abs 0.0 0.0 - 0.1 K/cumm Neutrophil pct 44.6 % Imm gran pct 2.5 % Lymphocyte pct 46.5 % Monocyte pct 5.1 % Eosinophil pct 0.9 % Basophil pct 0.4 % Critical Result Callback Chemistry Collection Time: 06/28/19 5:02 PM Result Value Ref Range Date Notified [id number] Time Notified 1815 TestName Potassium Called/Read Back Mago RN Credentials RN Called By Katelynn Hanley Creatine kinase (CK), total Collection Time: 06/28/19 5:02 PM Result Value Ref Range CK 81 30 - 200 Units/L Ethanol Collection Time: 06/28/19 5:02 PM Result Value Ref Range Ethanol <10 <=10 mg/dL Troponin I Collection Time: 06/28/19 5:02 PM Result Value Ref Range Troponin I <0.03 0.00 - 0.03 ng/mL POCT glucose Collection Time: 06/28/19 5:18 PM Result Value Ref Range Glucose, POC 161 70 - 199 mg/dL POCT lactate Collection Time: 06/28/19 5:23 PM Result Value Ref Range Lactate POC i-STAT 1.5 0.7 - 2.2 mmol/L POCT creatinine Collection Time: 06/28/19 5:27 PM Result Value Ref Range Creatinine POC 1.4 (H) 0.6 - 1.1 mg/dL Blood gas, venous Collection Time: 06/28/19 5:35 PM Result Value Ref Range pH, Venous 7.27 (L) 7.32 - 7.43 PCO2, Venous 63 (H) 40 - 50 mmHg PO2, Venous 30 mmHg HCO3 Venous, Calculated 30 20 - 30 mmol/L BE, venous 1 mmol/L Thrombocyte inhibited fibrinogen (FIBTEM) Collection Time: 06/28/19 5:35 PM Result Value Ref Range Maximum Clot Firm-Fibrinogen 12 9 - 29 mm Extrensic thromboelastometry (EXTEM) Collection Time: 06/28/19 5:35 PM Result Value Ref Range Clotting Time-Extrinsic 81 (H) 42 - 60 sec Clot Formation Time-Extrinsic 145 (H) 45 - 131 sec Angle-Extrinsic 62 (L) 65 - 83 Degree Max Clot Firmness-Extrinsic 51 (L) 53 - 75 mm Lysis 30-Extrinsic 100 85 - 100 % Urinalysis reflex to microscopic and culture Urine, indwelling catheter Collection Time: 06/28/19 6:54 PM Result Value Ref Range Color, ur Yellow Yellow Clarity, ur Clear Clear Specific gravity, ur 1.013 1.010 - 1.025 pH, urine 6 Protein, ur ql 1+ (A) Negative Glucose, ur ql Negative Negative Ketones, ur Negative Negative Bilirubin, ur Negative Negative Blood, ur Negative Negative Urobilinogen, ur <2.0 <2.0 mg/dL Nitrite, ur Negative Negative Leukocyte esterase, ur 1+ (A) Negative UA reflex comment Reflex to microscopic UA will be performed. Drugs of Abuse Screen, Urine with Reflex Confirmation Collection Time: 06/28/19 6:54 PM Result Value Ref Range Amphetamine, ur Not Detected CutOff 500ng/mL Barbiturates, ur Detected (A) CutOff 200ng/mL Benzodiazepines, ur Not Detected CutOff 100ng/mL Cannabinoids, ur Not Detected CutOff 50 ng/mL Cocaine, ur Not Detected CutOff 150ng/mL Fentanyl, Ur Detected (A) Cutoff 1 ng/mL Methadone, ur Not Detected CutOff 300ng/mL Opiates, ur Detected (A) CutOff 300ng/mL Oxycodone, ur Not Detected CutOff 100ng/mL Phencyclidine, ur Not Detected CutOff 25 ng/mL Urine Creatinine 42 mg/dL Blood gas, arterial Collection Time: 06/28/19 6:54 PM Result Value Ref Range pH, Art POC 7.45 7.35 - 7.45 PCO2, Arterial 39 35 - 45 mmHg PO2, Arterial 192 (H) 83 - 108 mmHg HCO3 Art (Calculated) 28 20 - 30 mmol/L BE, art 3 mmol/L O2 Sat Art (Measured) 99 (H) 90 - 95 % Potassium, whole blood Collection Time: 06/28/19 6:54 PM Result Value Ref Range Potassium, bld 5.6 (H) 3.3 - 4.9 mmol/L Urinalysis, microscopic only Collection Time: 06/28/19 6:54 PM Result Value Ref Range WBC, ur 6-10 (A) 0 - 5 /HPF RBC, ur 0-2 0 - 2 /HPF Hyaline casts, ur 11-20 (A) 0 - 10 /LPF Culture Reflex Comment Reflex conditions for urine culture (WBC >10) not met. Fentanyl Confirmation, Urine Collection Time: 06/28/19 6:54 PM Result Value Ref Range Fentanyl Conf, Ur Confirmed Positive Cutoff 1 ng/mL Acetylfentanyl Conf, Ur Does Not Confirm CutOff 2 ng/mL Acrylfentanyl Conf, Ur Does Not Confirm CutOff 2 ng/mL Furanylfentanyl Conf, Ur Does Not Confirm CutOff 2 ng/mL Fentanyl Metabolite (Norfentanyl) Conf, Ur Does Not Confirm CutOff 10 ng/mL POCT hCG, urine Collection Time: 06/28/19 7:23 PM Result Value Ref Range HCG, ur, POC Negative Lot Number [id number] QC Backgroud Clear Acceptable QC Control Line Acceptable POCT glucose Collection Time: 06/28/19 7:31 PM Result Value Ref Range Glucose, POC 176 70 - 199 mg/dL POCT glucose Collection Time: 06/28/19 8:26 PM Result Value Ref Range Glucose, POC 267 (H) 70 - 199 mg/dL CBC with auto differential Collection Time: 06/28/19 8:42 PM Result Value Ref Range WBC 20.3 (H) 3.8 - 9.9 K/cumm Hgb 8.5 (L) 11.9 - 15.5 g/dL Hct 26.4 (L) 35.6 - 45.5 % Plt 188 150 - 400 K/cumm MPV 11.3 9.1 - 12.3 fL RBC 3.07 (L) 3.90 - 5.20 M/cumm MCV 86.0 81.3 - 96.4 fL MCH 27.7 27.1 - 33.3 pg MCHC 32.2 (L) 32.3 - 35.7 g/dL RDW CV 20.5 (H) 11.1 - 14.9 % RDW SD 63.5 (H) 35.7 - 48.1 fL NRBC abs 0.02 (H) 0.00 - 0.01 K/cumm Differential, auto Collection Time: 06/28/19 8:42 PM Result Value Ref Range Neutrophil abs 15.4 (H) 1.7 - 6.5 K/cumm Imm gran abs 0.6 (H) 0.0 - 0.1 K/cumm Lymphocyte abs 2.8 0.8 - 3.3 K/cumm Monocyte abs 1.2 (H) 0.2 - 0.8 K/cumm Eosinophil abs 0.2 0.0 - 0.5 K/cumm Basophil abs 0.1 0.0 - 0.1 K/cumm Neutrophil pct 76.0 % Imm gran pct 3.1 % Lymphocyte pct 13.9 % Monocyte pct 5.8 % Eosinophil pct 0.9 % Basophil pct 0.3 % Prepare RBC Collection Time: 06/28/19 8:51 PM Result Value Ref Range Product code G4252D72 Unit Number [id number] Product Blood Type ONEG Dispense Status RETURNED Product code N0786L06 Unit Number [id number] Product Blood Type OPOS Dispense Status RETURNED Product code B5707E54 Unit Number [id number] Product Blood Type ONEG Dispense Status RETURNED Product code O5739A01 Unit Number [id number] Product Blood Type OPOS Dispense Status RETURNED Product code R4371C64 Unit Number [id number] Product Blood Type OPOS Dispense Status PRESUMED TRANSFUSED Product code T5513G08 Unit Number [id number] Product Blood Type OPOS Dispense Status PRESUMED TRANSFUSED Prepare RBC: 2 Units Collection Time: 06/28/19 9:18 PM Result Value Ref Range Product code B5914T35 Unit Number [id number] Product Blood Type OPOS Dispense Status RETURNED Product code Q9556U83 Unit Number [id number] Product Blood Type OPOS Dispense Status RETURNED POCT glucose Collection Time: 06/28/19 9:39 PM Result Value Ref Range Glucose, POC 274 (H) 70 - 199 mg/dL Type and screen Collection Time: 06/28/19 10:02 PM Result Value Ref Range ABO Rh A Positive Triston, indirect Negative POC Blood Gas and Chemistries, Venous - Collection Time: 06/28/19 10:25 PM Result Value Ref Range pH, Rj POC 7.35 7.32 - 7.43 pCO2, Rj POC 52 (H) 40 - 50 mmHg pO2, Rj POC 29 mmHg Na, POC 138 135 - 145 mmol/L K, POC 4.9 3.3 - 4.9 mmol/L Cl, POC 102 97 - 110 mmol/L Ionized Ca, POC 5.38 (H) 4.50 - 5.10 mg/dL Glucose, POC 236 (H) 70 - 199 mg/dL Lactate, POC 3.3 (H) 0.7 - 2.2 mmol/L O2 Sat, Rj POC (Gorge) 52 % Base Excess, POC 2.1 mmol/L HCO3, Rj POC 29 20 - 30 mmol/L Hct, POC 24.0 (L) 36.3 - 45.3 % Total Hb, POC 7.9 (L) 11.9 - 15.5 g/dL O2 Sat, Rj POC (Calc) 51 % Check Sample Collection Time: 06/28/19 10:33 PM Result Value Ref Range ABO Rh A Positive POCT glucose Collection Time: 06/28/19 11:33 PM Result Value Ref Range Glucose, POC 228 (H) 70 - 199 mg/dL Glucose comment 1 RN Notified Beta-hydroxybutyrate Collection Time: 06/29/19 12:00 AM Result Value Ref Range Beta-Hydroxybutyrate 0.1 0.0 - 0.5 mmol/L CBC with auto differential Collection Time: 06/29/19 12:00 AM Result Value Ref Range WBC 21.3 (H) 3.8 - 9.9 K/cumm Hgb 8.5 (L) 11.9 - 15.5 g/dL Hct 26.0 (L) 35.6 - 45.5 % Plt 225 150 - 400 K/cumm MPV 11.1 9.1 - 12.3 fL RBC 3.02 (L) 3.90 - 5.20 M/cumm MCV 86.1 81.3 - 96.4 fL MCH 28.1 27.1 - 33.3 pg MCHC 32.7 32.3 - 35.7 g/dL RDW CV 20.8 (H) 11.1 - 14.9 % RDW SD 63.0 (H) 35.7 - 48.1 fL NRBC abs 0.02 (H) 0.00 - 0.01 K/cumm Magnesium Collection Time: 06/29/19 12:00 AM Result Value Ref Range Magnesium 1.5 1.4 - 2.5 mg/dL Phosphorus Collection Time: 06/29/19 12:00 AM Result Value Ref Range Phosphorus, pl 2.8 2.3 - 4.5 mg/dL Basic metabolic panel Collection Time: 06/29/19 12:00 AM Result Value Ref Range Sodium 137 135 - 145 mmol/L Potassium, pl 5.1 (H) 3.3 - 4.9 mmol/L Chloride 102 97 - 110 mmol/L CO2 26 22 - 32 mmol/L Anion gap 9 2 - 15 mmol/L BUN 38 (H) 8 - 25 mg/dL Creatinine 1.41 (H) 0.60 - 1.10 mg/dL Glucose 198 70 - 199 mg/dL Calcium 9.7 8.5 - 10.3 mg/dL Potassium, whole blood Collection Time: 06/29/19 12:00 AM Result Value Ref Range Potassium, bld 4.6 3.3 - 4.9 mmol/L Calcium, ionized Collection Time: 06/29/19 12:00 AM Result Value Ref Range Calcium, Ionized 4.75 4.50 - 5.10 mg/dL Blood gas, arterial Collection Time: 06/29/19 12:00 AM Result Value Ref Range pH, Art POC 7.46 (H) 7.35 - 7.45 PCO2, Arterial 36 35 - 45 mmHg PO2, Arterial 71 (L) 83 - 108 mmHg HCO3 Art (Calculated) 27 20 - 30 mmol/L BE, art 3 mmol/L O2 Sat Art (Measured) 95 90 - 95 % Lactate, whole blood Collection Time: 06/29/19 12:00 AM Result Value Ref Range Lactate, bld 3.1 (H) 0.7 - 2.0 mmol/L Differential, auto Collection Time: 06/29/19 12:00 AM Result Value Ref Range Neutrophil abs 16.5 (H) 1.7 - 6.5 K/cumm Imm gran abs 0.6 (H) 0.0 - 0.1 K/cumm Lymphocyte abs 2.7 0.8 - 3.3 K/cumm Monocyte abs 1.4 (H) 0.2 - 0.8 K/cumm Eosinophil abs 0.1 0.0 - 0.5 K/cumm Basophil abs 0.1 0.0 - 0.1 K/cumm Neutrophil pct 77.7 % Imm gran pct 2.6 % Lymphocyte pct 12.7 % Monocyte pct 6.4 % Eosinophil pct 0.3 % Basophil pct 0.3 % Valproic acid level, total Collection Time: 06/29/19 12:00 AM Result Value Ref Range Valproic Acid <15.0 (L) 50.0 - 100.0 mcg/mL POCT glucose Collection Time: 06/29/19 12:02 AM Result Value Ref Range Glucose, POC 195 70 - 199 mg/dL POCT glucose Collection Time: 06/29/19 1:16 AM Result Value Ref Range Glucose, POC 205 (H) 70 - 199 mg/dL POCT glucose Collection Time: 06/29/19 1:54 AM Result Value Ref Range Glucose, POC 194 70 - 199 mg/dL POCT glucose Collection Time: 06/29/19 3:01 AM Result Value Ref Range Glucose, POC 192 70 - 199 mg/dL POCT glucose Collection Time: 06/29/19 3:57 AM Result Value Ref Range Glucose, POC 187 70 - 199 mg/dL POCT glucose Collection Time: 06/29/19 5:04 AM Result Value Ref Range Glucose, POC 166 70 - 199 mg/dL CBC with auto differential Collection Time: 06/29/19 5:07 AM Result Value Ref Range WBC 21.0 (H) 3.8 - 9.9 K/cumm Hgb 7.8 (L) 11.9 - 15.5 g/dL Hct 24.5 (L) 35.6 - 45.5 % Plt 249 150 - 400 K/cumm MPV 11.4 9.1 - 12.3 fL RBC 2.88 (L) 3.90 - 5.20 M/cumm MCV 85.1 81.3 - 96.4 fL MCH 27.1 27.1 - 33.3 pg MCHC 31.8 (L) 32.3 - 35.7 g/dL RDW CV 20.4 (H) 11.1 - 14.9 % RDW SD 61.4 (H) 35.7 - 48.1 fL NRBC abs 0.05 (H) 0.00 - 0.01 K/cumm Lactate, whole blood Collection Time: 06/29/19 5:07 AM Result Value Ref Range Lactate, bld 3.9 (H) 0.7 - 2.0 mmol/L Differential, auto Collection Time: 06/29/19 5:07 AM Result Value Ref Range Neutrophil abs 15.2 (H) 1.7 - 6.5 K/cumm Imm gran abs 0.4 (H) 0.0 - 0.1 K/cumm Lymphocyte abs 3.5 (H) 0.8 - 3.3 K/cumm Monocyte abs 1.8 (H) 0.2 - 0.8 K/cumm Eosinophil abs 0.0 0.0 - 0.5 K/cumm Basophil abs 0.0 0.0 - 0.1 K/cumm Neutrophil pct 72.7 % Imm gran pct 2.1 % Lymphocyte pct 16.5 % Monocyte pct 8.4 % Eosinophil pct 0.1 % Basophil pct 0.2 % POCT glucose Collection Time: 06/29/19 6:15 AM Result Value Ref Range Glucose, POC 170 70 - 199 mg/dL POCT glucose Collection Time: 06/29/19 7:02 AM Result Value Ref Range Glucose, POC 169 70 - 199 mg/dL POCT glucose Collection Time: 06/29/19 8:05 AM Result Value Ref Range Glucose, POC 134 70 - 199 mg/dL POCT glucose Collection Time: 06/29/19 9:06 AM Result Value Ref Range Glucose, POC 130 70 - 199 mg/dL POCT glucose Collection Time: 06/29/19 10:05 AM Result Value Ref Range Glucose, POC 113 70 - 199 mg/dL Xr Knee Left 1 Or 2 Views Result Date: 06/28/2019 1. Open comminuted periprosthetic fracture of the proximal left tibia 2. Open comminuted fracture of the proximal left fibula 3. Mildly displaced intra- articular right medial malleolus fracture 4. Noacute pelvic fracture. Dictated by: Luh Moffett M.D. Xr Tibia Fibula Left 2 Views Result Date: 06/28/2019 1. Open comminuted periprosthetic fracture of the proximal left tibia 2. Open comminuted fracture of the proximal left fibula 3. Mildly displaced intra- articular right medial malleolus fracture 4. Noacute pelvic fracture. Dictated by: Luh Moffett M.D. Xr Tibia Fibula Right 2 Views Result Date: 06/28/2019 1. Open comminuted periprosthetic fracture of the proximal left tibia 2. Open comminuted fracture of the proximal left fibula 3. Mildly displaced intra- articular right medial malleolus fracture 4. Noacute pelvic fracture. Dictated by: Luh Moffett M.D. Xr Ankle Left 3 Or More Views Result Date: 06/28/2019 1. Open comminuted periprosthetic fracture of the proximal left tibia 2. Open comminuted fracture of the proximal left fibula 3. Mildly displaced intra- articular right medial malleolus fracture 4. Noacute pelvic fracture. Dictated by: Luh Moffett M.D. Xr Ankle Right 3 Or More Views Result Date: 06/28/2019 1. Open comminuted periprosthetic fracture of the proximal left tibia 2. Open comminuted fracture of the proximal left fibula 3. Mildly displaced intra- articular right medial malleolus fracture 4. Noacute pelvic fracture. Dictated by: Luh Moffett M.D. Cta Lower Extremity Left Result Date: 06/29/2019 1. Left lower extremity: Three-vessel runoff. 2. Non-opacification of a left peroneal artery proximal segment with distal reconstitution is favored to represent focal vasospasm/stenosis secondary to extrinsic arterial compression from the surrounding muscular edema. No evidence of arterial injury. 3. Markedly comminuted, open, angulated, and displaced periprosthetic fracture of the left proximal tibia. 4. Comminuted, angulated, and displaced fracture of the left proximal fibula. 5. Marked muscular intensity adjacent edema of the distal left lower extremity. Dictated by: Mikhail Beyer Xr Chest 1 Vw Portable Result Date: 06/28/2019 1st is made to same day chest CT. There is an endotracheal tube which terminates 1.3 cm above the jesús. A gastric tube projects below the left hemidiaphragm, extending at least to the body of the stomach. Lung volumes are decreased with bibasilar atelectasis. There are right upper lung predominant opacities correlate with areas of groundglass opacity seen on CT and may represent asymmetric pulmonary edema. There is no pleural effusion or pneumothorax. Cardiomediastinal contours are within normal limits accounting for portable technique and low lung volumes. Dictated by: Luh Moffett M.D. Xr Femur Left 2 Or More Views Result Date: 06/28/2019 1. Open comminuted periprosthetic fracture of the proximal left tibia 2. Open comminuted fracture of the proximal left fibula 3. Mildly displaced intra- articular right medial malleolus fracture 4. No acute pelvic fracture. Dictated by: Luh Moffett M.D. Ct Chest Abdomen Pelvis W Contrast Result Date: 06/28/2019 1. No acute intra-abdominal traumatic injury. 2. Scattered, biapical groundglass opacities with septal line thickening may represent mild pulmonary edema. 3. Mild bibasilar atelectasis. Dictated by: Mikhail Beyer Xr Pelvis 1 Or 2 Views Result Date: 06/28/2019 1. Open comminuted periprosthetic fracture of the proximal left tibia 2. Open comminuted fracture of the proximal left fibula 3. Mildly displaced intra- articular right medial malleolus fracture 4. Noacute pelvic fracture. Dictated by: Luh Moffett M.D. Ct Head And Cervical Spine Wo Contrast Result Date: 06/29/2019 1. No acute intracranial abnormality, such as hemorrhage. 2. No evidence of acute fracture in the cervical spine. 3. Recommend follow up of the Incidental enlarged pituitary with MRI pituitary protocol if clinically indicated. Dictated by: Adithya Murphy M.D. Trauma Surgical plan: #Acute respiratory failure -wean ventilator as tolerated #L tibia/fibula fracture -s/p ORIF 06/28 -f/u ortho re additional OR plan #R medial malleolus fracture -per ortho, needs ORIF. -Will clear collar once awake. Ana Acosta M.D. General Surgery, PGY-4 10:22 AM [phone] Cosigned by Marcia Bowen MD at 08/02/2019 11:23 AM HOME SALES SERVICE PROFESSIONAL SALES SERVICE PROFESSIONAL SALES SERVICE PROFESSIONAL Associated attestation - Marcia Bowen MD - 08/02/2019 11:23 AM HOME SALES SERVICE PROFESSIONAL I have seen and examined the patient on 06/29/2019. I agree with the findings and plan of care as documented in the resident's/fellow's note. * [facility] - 06/29/2019 9:15 AM CST Patient profile has been reviewed by clinical registered pharmacy technician on 06/29/2019. Case reviewed on rounds with multidisciplinary team or outside of rounds with prescribers as necessary. Additional significant interventions or issues related to ongoing monitoring are listed below as appropriate. Recommendations: -Increase enoxaparin to 40 mg q12h due to pt weight -Resume home metop and amlodipine -Resume home statin -Resume home miralax -Increase esomep to 40 mg daily (home med) -Obtain gent trough today at 1630 (desired <2) Current Facility-Administered Medications: albuterol HFA (PROVENTIL HFA,VENTOLIN HFA,PROAIR HFA) 90 mcg/actuation inhaler 2 puff, 2 puff, inhalation, Q6H PRN (RT), Brittany Serrano NP ceFAZolin (ANCEF) 2,000 mg/20 mL in sterile water (premix) 2,000 mg, 2,000 mg, intravenous, Q8H KELIN, Mago Brian MD, Last Rate: 400 mL/hr at 06/29/19 0458, 2,000 mg at 06/29/19 0458 chlorhexidine (PERIDEX) 0.12 % solution 15 mL, 15 mL, mouth/throat, BID, Brittany Serrano NP dextrose (GLUTOSE) 40 % gel 15 g, 15 g, oral, Q15 Min PRN OR dextrose (D10W) 10% bolus 250 mL, 250 mL, intravenous, Q15 Min PRN, Brittany Serrano NP dextrose 5% and Lactated Ringer's infusion, 25 mL/hr, intravenous, Continuous, Brittany Serrano NP, Last Rate: 25 mL/hr at 06/29/19 0800, 25 mL/hr at 06/29/19 0800 [START ON 06/30/2019] docusate (COLACE) 10 mg/mL oral liquid 100 mg, 100 mg, feeding tube, BID, Brittany Serrano NP enoxaparin (LOVENOX) syringe 30 mg, 30 mg, subcutaneous, Q12H KELIN, Brittany Serrano NP esomeprazole DR (NexIUM) extended release oral suspension 20 mg, 20 mg, oral, Before breakfast, Brittany Serrano NP fentaNYL (SUBLIMAZE) bolus from bag 50 mcg, 50 mcg, intravenous, Q30 Min PRN, Brittany Serrano NP, 50 mcg at 06/29/19 0800 fentaNYL 2500 mcg/50 mL (50 mcg/mL) infusion (premix), 12.5-400 mcg/hr, intravenous, Titrated, Brittany Serrano NP, Last Rate: 1 mL/hr at 06/29/19 0800, 50 mcg/hr at 06/29/19 0800 gentamicin (GARAMYCIN) 370 mg in sodium chloride 0.9% 37 mL (10 mg/mL) syringe, 5 mg/kg (Adjusted),intravenous, Q24H, Mago Brian MD, Stopped at 06/28/19 1751 glucagon injection 1 mg, 1 mg, intramuscular, Q30 Min PRN, Brittany Serrano NP insulin regular bolus from bag 4-10 Units, 4-10 Units, intravenous, PRN, Brittany Serrano NP insulin regular bolus from bag 4-6 Units, 4-6 Units, intravenous, Q1H PRN, Brittany Serrano NP insulin regular in 0.9% sodium chloride 100 units/100 mL infusion (premix), 0-30 Units/hr, intravenous, Titrated, Kimo Luna MD, Last Rate: 4 mL/hr at 06/29/19 0800, 4 Units/hr at 06/29/19 0800 primidone (MYSOLINE) tablet 50 mg, 50 mg, feeding tube, BID, Brittany Serrano NP propofol (DIPRIVAN) IV 50 mg, 50 mg, intravenous, Once, Yoli Monzon MD, Stopped at 06/28/19 1858 propofol (DIPRIVAN) IV, 5-50 mcg/kg/min, intravenous, Titrated, Brittany Serrano NP, Last Rate: 12.9mL/hr at 06/29/19 0800, 20 mcg/kg/min at 06/29/19 0800 [START ON 06/30/2019] senna 1.76 mg/mL syrup 8.8 mg, 8.8 mg, feeding tube, BID, YISSEL Redmond RPh, PharmD, BCPS, BCCCP SALES SERVICE PROFESSIONAL * Luz Driscoll NP - 06/29/2019 7:34 AM CST Surgical ICU Daily Progress Team: Blue AM Subjective HPI: 68y/o F with unclear medical history but per prior records, HTN, seizure disorder, depression, chronic pain, asthma, GERD, SANTI, home O2 use presented to ED after same level fall. Prior to arrival, patient was given morphine by EMS and became hypotensive for which a tourniquet was placed to her LLE. In the ED, she was still hypotensive and given 2u PRBC. Per ED record, patient denied LOC or hitting head but was also lethargic and combative at times. HCT/Cspine CT negative. Per anesthesia, she was combative requiring large doses of narcotics and became lethargic requiring narcanand intubation. She also had hyperkalemia that was treated with calcium, insulin, and dextrose. Imaging revealed left open tib/fib fracture and R medial mal fracture. CTA LLE with no evidence of vascular injury. CT C/A/P with no acute injuries. In the ED, she received Gent and Ancef and was given TDAP. She was taken to the OR with Ortho Trauma and had L tib/fib I/D, ORIF, partial close, and woundvac placement and washout and splint placed to R medial mal fracture. Intraop she required Manfred and insulin infusion. OR totals include 1L IVF, 325ml UOP, and minimal EBL. Post op she remained intubated and was brought to the SICU on Manfred and insulin gtt for further management. Interval History: -f/u ortho plan - PSV/extubate when able -clear c-collar when able Objective Medications Scheduled Meds:acetaminophen, 1,000 mg, feeding tube, Q6H KELIN amLODIPine, 10 mg, feeding tube, Daily atorvastatin, 10 mg, feeding tube, Nightly ceFAZolin, 2,000 mg, intravenous, Q8H KELIN chlorhexidine, 15 mL, mouth/throat, BID [START ON 06/30/2019] docusate, 100 mg, feeding tube, BID [START ON 06/30/2019] esomeprazole DR, 40 mg, feeding tube, Daily gentamicin, 5 mg/kg (Adjusted), intravenous, Q24H metoprolol (LOPRESSOR) tablet/capsule, 50 mg, feeding tube, BID polyethylene glycol, 17 g, feeding tube, Daily primidone, 50 mg, feeding tube, BID propofol, 50 mg, intravenous, Once [START ON 06/30/2019] senna, 8.8 mg, feeding tube, BID Continuous Infusions:dextrose 5% and Lactated Ringer's, 25 mL/hr, Last Rate: 25 mL/hr (06/29/191599) fentaNYL, 12.5-400 mcg/hr, Last Rate: 50 mcg/hr (06/29/191599) insulin regular, 0-30 Units/hr, Last Rate: 4 Units/hr (06/29/191599) propofol, 5-50 mcg/kg/min, Last Rate: 10 mcg/kg/min (06/29/191599) PRN Meds:.albuterol HFA ??? dextrose OR dextrose ??? fentaNYL ??? glucagon ??? insulin regular ??? insulin regular Physical Exam: Neuro: sedated, PERRL CV: S1, S2, no murmurs Resp: clear bilaterally, no wheezing, intubated GI: soft, NT/ND, hypoactive BS Extremities: dopplerable/palpable pulses Vital signs for last 24 hours: Temp: [35.6 ??C (96.1 ??F)-38.5 ??C (101.3 ??F)] 38.5 ??C (101.3 ??F) Pulse: [76-144] 132 BP: (57-159)/(36-144) 100/78 Resp: [9-26] 22 SpO2: [88 %-100 %] 99 % Arterial Line BP: (125-218)/(50-85) 157/61 FiO2 (%): [40 %] 40 % Pulmonary Support: O2 Therapy: Supplemental oxygen O2 Del Method: Endotracheal tube FiO2 (%): 40 % Adult Vent Mode: Volume control/Assist control FiO2 (%): 40 % S RR: 22 PEEP/CPAP/EPAP (cm H2O): 5 cm H20 Hemodynamics: MAP (mmHg): [48-150] 83 Intake/Output: Intake/Output Summary (Last 24 hours) at 06/29/2019 1619 Last data filed at 06/29/2019 1600 Gross per 24 hour Intake 4721.05 ml Output 3255 ml Net 1466.05 ml Lab/Radiology/Diagnostic Review: Laboratory review: Lab results in the last 12 hours: Recent Results (from the past 12 hour(s)) POCT glucose Collection Time: 06/29/19 5:04 AM Result Value Ref Range Glucose, POC 166 70 - 199 mg/dL CBC with auto differential Collection Time: 06/29/19 5:07 AM Result Value Ref Range WBC 21.0 (H) 3.8 - 9.9 K/cumm Hgb 7.8 (L) 11.9 - 15.5 g/dL Hct 24.5 (L) 35.6 - 45.5 % Plt 249 150 - 400 K/cumm MPV 11.4 9.1 - 12.3 fL RBC 2.88 (L) 3.90 - 5.20 M/cumm MCV 85.1 81.3 - 96.4 fL MCH 27.1 27.1 - 33.3 pg MCHC 31.8 (L) 32.3 - 35.7 g/dL RDW CV 20.4 (H) 11.1 - 14.9 % RDW SD 61.4 (H) 35.7 - 48.1 fL NRBC abs 0.05 (H) 0.00 - 0.01 K/cumm Lactate, whole blood Collection Time: 06/29/19 5:07 AM Result Value Ref Range Lactate, bld 3.9 (H) 0.7 - 2.0 mmol/L Differential, auto Collection Time: 06/29/19 5:07 AM Result Value Ref Range Neutrophil abs 15.2 (H) 1.7 - 6.5 K/cumm Imm gran abs 0.4 (H) 0.0 - 0.1 K/cumm Lymphocyte abs 3.5 (H) 0.8 - 3.3 K/cumm Monocyte abs 1.8 (H) 0.2 - 0.8 K/cumm Eosinophil abs 0.0 0.0 - 0.5 K/cumm Basophil abs 0.0 0.0 - 0.1 K/cumm Neutrophil pct 72.7 % Imm gran pct 2.1 % Lymphocyte pct 16.5 % Monocyte pct 8.4 % Eosinophil pct 0.1 % Basophil pct 0.2 % POCT glucose Collection Time: 06/29/19 6:15 AM Result Value Ref Range Glucose, POC 170 70 - 199 mg/dL POCT glucose Collection Time: 06/29/19 7:02 AM Result Value Ref Range Glucose, POC 169 70 - 199 mg/dL POCT glucose Collection Time: 12/05/19 8:05 AM Result Value Ref Range Glucose, POC 134 70 - 199 mg/dL POCT glucose Collection Time: 06/29/19 9:06 AM Result Value Ref Range Glucose, POC 130 70 - 199 mg/dL POCT glucose Collection Time: 06/29/19 10:05 AM Result Value Ref Range Glucose, POC 113 70 - 199 mg/dL POCT glucose Collection Time: 06/29/19 11:13 AM Result Value Ref Range Glucose, POC 116 70 - 199 mg/dL POCT glucose Collection Time: 06/29/19 12:07 PM Result Value Ref Range Glucose, POC 138 70 - 199 mg/dL POCT glucose Collection Time: 06/29/19 1:15 PM Result Value Ref Range Glucose, POC 133 70 - 199 mg/dL POCT glucose Collection Time: 06/29/19 1:58 PM Result Value Ref Range Glucose, POC 121 70 - 199 mg/dL POCT glucose Collection Time: 06/29/19 4:00 PM Result Value Ref Range Glucose, POC 112 70 - 199 mg/dL Xr Knee Left 1 Or 2 Views Result Date: 06/28/2019 1. Open comminuted periprosthetic fracture of the proximal left tibia 2. Open comminuted fracture of the proximal left fibula 3. Mildly displaced intra- articular right medial malleolus fracture 4. Noacute pelvic fracture. Dictated by: Luh Moffett M.D. Xr Tibia Fibula Left 2 Views Result Date: 06/28/2019 1. Open comminuted periprosthetic fracture of the proximal left tibia 2. Open comminuted fracture of the proximal left fibula 3. Mildly displaced intra- articular right medial malleolus fracture 4. Noacute pelvic fracture. Dictated by: Luh Moffett M.D. Xr Tibia Fibula Right 2 Views Result Date: 06/28/2019 1. Open comminuted periprosthetic fracture of the proximal left tibia 2. Open comminuted fracture of the proximal left fibula 3. Mildly displaced intra- articular right medial malleolus fracture 4. Noacute pelvic fracture. Dictated by: Luh Moffett M.D. Xr Ankle Left 3 Or More Views Result Date: 06/28/2019 1. Open comminuted periprosthetic fracture of the proximal left tibia 2. Open comminuted fracture of the proximal left fibula 3. Mildly displaced intra- articular right medial malleolus fracture 4. Noacute pelvic fracture. Dictated by: Luh Moffett M.D. Xr Ankle Right 3 Or More Views Result Date: 06/28/2019 1. Open comminuted periprosthetic fracture of the proximal left tibia 2. Open comminuted fracture of the proximal left fibula 3. Mildly displaced intra- articular right medial malleolus fracture 4. Noacute pelvic fracture. Dictated by: Luh Moffett M.D. Cta Lower Extremity Left Result Date: 06/28/2019 1. Left lower extremity: Three-vessel runoff. 2. Non-opacification of a left peroneal artery proximal segment with distal reconstitution is favored to represent focal vasospasm/stenosis secondary to extrinsic arterial compression from the surrounding muscular edema. No evidence of arterial injury. 3. Markedly comminuted, open, angulated, and displaced periprosthetic fracture of the left proximal tibia. 4. Comminuted, angulated, and displaced fracture of the left proximal fibula. 5. Marked muscular intensity adjacent edema of the distal left lower extremity. Dictated by: Mikhail Beyer Xr Chest 1 Vw Portable Result Date: 06/28/2019 1st is made to same day chest CT. There is an endotracheal tube which terminates 1.3 cm above the jesús. A gastric tube projects below the left hemidiaphragm, extending at least to the body of the stomach. Lung volumes are decreased with bibasilar atelectasis. There are right upper lung predominant opacities correlate with areas of groundglass opacity seen on CT and may represent asymmetric pulmonary edema. There is no pleural effusion or pneumothorax. Cardiomediastinal contours are within normal limits accounting for portable technique and low lung volumes. Dictated by: Luh Moffett M.D. Xr Femur Left 2 Or More Views Result Date: 06/28/2019 1. Open comminuted periprosthetic fracture of the proximal left tibia 2. Open comminuted fracture of the proximal left fibula 3. Mildly displaced intra- articular right medial malleolus fracture 4. Noacute pelvic fracture. Dictated by: Luh Moffett M.D. Ct Chest Abdomen Pelvis W Contrast Result Date: 06/28/2019 1. No acute intra-abdominal traumatic injury. 2. Scattered, biapical groundglass opacities with septal line thickening may represent mild pulmonary edema. 3. Mild bibasilar atelectasis. Dictated by: Mikhail Beyer Xr Pelvis 1 Or 2 Views Result Date: 06/28/2019 1. Open comminuted periprosthetic fracture of the proximal left tibia 2. Open comminuted fracture of the proximal left fibula 3. Mildly displaced intra- articular right medial malleolus fracture 4. Noacute pelvic fracture. Dictated by: Luh Moffett M.D. Ct Head And Cervical Spine Wo Contrast Result Date: 06/28/2019 No acute intracranial abnormality, such as hemorrhage No evidence of acute fracture in the cervicalspine. Dictated by: Adithya Murphy M.D. Assessment/Plan Principal Problem: Open displaced comminuted fracture of shaft of left tibia, type IIIA, IIIB, or IIIC NEURO: #Acute Pain: 2/2 fall with fractures -Fentanyl gtt per protocol -monitor pain level ?? #acute Agitation requiring sedation protocol: -Propofol infusion per protocol ?? #Seizure disorder: chronic, per medical record -Per last found med list in medical record, patient takes Primidone and Depakote. -Positive for barbituates on UDS -continue primidone -sz precautions #chronic and acute falls: c-collar remains intact, unable to clear while pt sedated -06/28: CT head and c-spine negative -clear collar when able ?? CV: #HTN, chronic: -Records show pt taking different agents at different times, including Amlodipine, olmesartan, clonidine, hydralazine, metop, and lasix -restarted metoprolol with hold parameters and amlodipine - re-evaluate and clarify meds when able ?? ECHO 06/12/19- EF 55-60%, trace TR, mild AR, grade I diastolic dysfunction, otherwise normal ?? PULM: #Acute Respiratory Failure: unclear what prompted intubation in ED, per anesthesia combativeness vsover narcotization vs threatened airway -pt remains on min vent settings -PSV/best once OR procedures are completed, if passes consider extubation at that time - vap ppx ?? GI: Diet: NPO. OGT to LIS. Below GE junction on CXR. Bowel regimen: Colace and senna. ?? #GERD: Chronic per records -nexium ?? ENDO: #Hyperglycemia: no known history DM -Hgb A1c 6.2 in May. -Insulin gtt, will try to transition to SSI. ?? RENAL: #LUAN likely 2/2 hypovolemia: BUN/Cr 38/1.41. Cr on previous admission 0.8-0.9. -Avoid nephrotoxins -monitor renal function and uop ?? HEME: #ABLA: likely 2/2 injury/surgery -H/H 8.12/18, no acute s/s of bleeding noted -CTA LLE without evidence of arterial injury. -continue to monitor ?? ID: #Leukocytosis: likely reactive -WBC 21.3 afebrile -Ancef and Gent continued until return to OR for open fracture zahida -monitor and f/u plan ?? MSK: #Left open tib/fib fracture: 2/2 fall -S/p I/D, ORIF, splint, partial close and wound vac 06/28. -Ortho Trauma following. -Plan to return to OR for further repair zahida -NWB -tdap given in ED ?? #Right medial mal fracture: 2/2 fall -S/p washout and splint 06/28. -Ortho Trauma following. -Plan to return to OR for further repair or Wednesday -NWB ICU Standards of Care Restraints: none Insulin: per protocol Electrolyte repletion: per protocol Nutrition: NPO DVT ppx:lovenox, scd PUD ppx: nexium Activity: bedrest Assessment and plan has been reviewed with attending, Dr. Arndt Attending Attestation: I have reviewed the GUMARO's documentation as the collaborator or as a designeeattending for the CPA chart review requirement. Luz Driscoll NP Additional Care Provided 1500: per trauma ok to remove c-collar SALES SERVICE PROFESSIONAL * Migel Merchant MD - 06/29/2019 5:43 AM CST Images from the original note were not included. Orthopaedic Trauma Service Daily Progress Note Subjective 68 y.o. female POD1 s/p: Procedure(s): IRRIGATION AND DEBRIDEMENT - TIBIA OPEN REDUCTION INTERNAL FIXATION - TIBIA S/p urgent OR overnight w/ I&D, ORIF L type III open periprosthetic fx. Remains intubated, sedated, on single pressor. A line being inserted on rounds for improved monitoring. Tachy to 100's. LUAN. SICU recussitating this AM. NPO Current Facility-Administered Medications Medication Dose Route Frequency Last Rate Last Dose ??? Lactated Ringer's (LR) infusion - ADS Override Pull ??? albuterol HFA (PROVENTIL HFA,VENTOLIN HFA,PROAIR HFA) 90 mcg/actuation inhaler 2 puff 2 puff inhalation Q6H PRN (RT) ??? ceFAZolin (ANCEF) 2,000 mg/20 mL in sterile water (premix) 2,000 mg 2,000 mg intravenous Q8H KELIN 400 mL/hr at 06/29/19457 2,000 mg at 06/29/19457 ??? chlorhexidine (PERIDEX) 0.12 % solution 15 mL 15 mL mouth/throat BID ??? dextrose (GLUTOSE) 40 % gel 15 g 15 g oral Q15 Min PRN Or ??? dextrose (D10W) 10% bolus 250 mL 250 mL intravenous Q15 Min PRN ??? dextrose 5% and Lactated Ringer's infusion 25 mL/hr intravenous Continuous 25 mL/hr at 8 25 mL/hr at 06/29/19457 ??? [START ON 06/30/2019] docusate (COLACE) 10 mg/mL oral liquid 100 mg 100 mg feeding tube BID ??? enoxaparin (LOVENOX) syringe 30 mg 30 mg subcutaneous Q12H KELIN ??? esomeprazole DR (NexIUM) extended release oral suspension 20 mg 20 mg oral Before breakfast ??? fentaNYL (SUBLIMAZE) bolus from bag 50 mcg 50 mcg intravenous Q30 Min PRN ??? fentaNYL 2500 mcg/50 mL (50 mcg/mL) infusion (premix) 12.5-400 mcg/hr intravenous Titrated 1 mL/hr at 06/29/198 50 mcg/hr at 06/29/19457 ??? gentamicin (GARAMYCIN) 370 mg in sodium chloride 0.9% 37 mL (10 mg/mL) syringe 5 mg/kg (Adjusted) intravenous Q24H Stopped at 06/28/19 175 ??? glucagon injection 1 mg 1 mg intramuscular Q30 Min PRN ??? insulin regular bolus from bag 4-10 Units 4-10 Units intravenous PRN ??? insulin regular bolus from bag 4-6 Units 4-6 Units intravenous Q1H PRN ??? insulin regular in 0.9% sodium chloride 100 units/100 mL infusion (premix) 0-30 Units/hr intravenous Titrated 4 mL/hr at 06/29/19457 4 Units/hr at 06/29/19457 ??? Lactated Ringer's (LR) bolus 1,000 mL 1,000 mL intravenous Once ??? phenylephrine in 0.9% sodium chloride (MANFRED-SYNEPHRINE) 25,000 mcg/250 mL (100 mcg/mL) infusion (premix) solution 0.1-4 mcg/kg/min intravenous Titrated 60 mL/hr at 06/29/19526 1 mcg/kg/min at 06/29/19526 ??? primidone (MYSOLINE) tablet 50 mg 50 mg feeding tube BID ??? propofol (DIPRIVAN) IV 50 mg 50 mg intravenous Once Stopped at 06/28/191857 ??? propofol (DIPRIVAN) IV 5-50 mcg/kg/min intravenous Titrated 9.68 mL/hr at 06/29/19457 15 mcg/kg/min at 06/29/19457 ??? [START ON 06/30/2019] senna 1.76 mg/mL syrup 8.8 mg 8.8 mg feeding tube BID Objective Vitals: 24hr Min/Max: Temp Min: 35.6 ??C (96.1 ??F) Max: 37 ??C (98.6 ??F) Pulse Min: 76 Max: 113 BP Min: 57/40 Max: 159/144 Resp Min: 9 Max: 25 SpO2 Min: 88 % Max: 100 % I/O last 2 completed shifts: In: 700 [Blood:700] Out: - I/O this shift: In: 2339.2 [I.V.:1219.2; IV Piggyback:1120] Out: 2185 [Urine:2185] Physical Exam: Gen: NAD Neuro: A&Ox3 Resp: NLB CV: regular rate by palpation of peripheral pulses MSK: RUE In restraint, no gross deformity LUE SICU placing A line No gross deformity RLE Toes wwp splint c/d/i LLE Toes wwp Maintain LLS Labs: Hematology Lab History Some values may be hidden. Unless noted otherwise, only the newest values recorded on each date aredisplayed. Labs - Hematology Latest Ref Range 06/12/19 06/13/19 06/28/19 06/29/19 WBC 3.8 - 9.9 K/cumm 7.5 6.5 20.3 (A) 21.0 (A) Total Hb, POC 11.9 - 15.5 g/dL 10.8 (A) 10.4 (A) 7.9 (A) 7.8 (A) Hct 35.6 - 45.5 % 36.0 33.9 (A) 26.4 (A) 24.5 (A) Plt 150 - 400 K/cumm 189 180 188 249 Neutrophil abs 1.7 - 6.5 K/cumm 3,500 2,900 15.4 (A) 15.2 (A) Some values recorded on this date have been omitted. Some abnormal values recorded on this date have been omitted. (A) Abnormal value Chem/LFT Lab History Some values may be hidden. Unless noted otherwise, only the newest values recorded on each date aredisplayed. Labs-Chem/LFT Latest Ref Range 06/12/19 06/13/19 06/28/19 06/29/19 Sodium 135 - 145 mmol/L 140 138 141 (C) 137 Potassium Lvl 3.3 - 5.1 mmol/L 4.9 5.1 BUN 8 - 25 mg/dL 17 22 Creatinine 0.60 - 1.10 mg/dL 0.8 0.8 1.50 (A) (C) 1.41 (A) Bilirubin, total 0.1 - 1.2 mg/dL 0.2 (C) AST 10 - 45 Units/L 43 (C) ALT 7 - 45 Units/L 41 (C) CrCl- Actual Body Weight (Cockcroft-Gault) 62.4 70.6 Some values recorded on this date have been omitted. (A) Abnormal value (C) Corrected value Comments are available for some flowsheets but are not being displayed. Assessment/Plan Pepper Kapil Ewing is a 68 y.o. female who is POD 1 s/p I&D ORIF L proximal tibia periprosthetic fx. Also has R medial mal fx which will likely be treated in a non-urgent basis w/ ORIF. Will Discuss case with our Ortho Recon colleagues today and update ICU w/ definitive plans. Appreciate criticalcare help. PLAN: 1. L type 3 open periprosthetic tibia fx 1. S/p I&D 2. Still small open wound at apex 1. Continue Ancef/Gent until closed 3. Further OR plans pending discussion this AM 4. NWB LLE 2. RLE medial mal fx 1. Maintain splint 2. Plan for ORIF 3. NWB LLE 3. DVT ppx w/ SCDs, lovenox 40 qpm 4. LUAN - CTM 5. Anemia: transfusion goal 7 6. PT/OT/OOB 7. Appreciate critical care help Migel Merchant MD Department of Orthopaedic Surgery [facility] in [place] If questions arise overnight, the OTS team can be reached at: [phone] (Floor Resident ) [phone] (Consult Resident) SALES SERVICE PROFESSIONAL * Gibran Sanchez - 06/28/2019 9:43 PM CST Spiritual Care Note: Chaplain Gibran Sanchez M.Div., [facility] 06/28/19 2100 Time Spent Start Time 1730 Stop Time 1815 Time Calculation (min) 45 min Patient Spiritual Assessment Spirituality Assessed Focus of Care Clinical Encounter Type Visited With Patient;Health care provider Response Type Crisis visit Crisis Visit Trauma Reason for visit Level 1 trauma Referral From (Page) Referral To Theatrical Agent Outcomes and Interventions Outcomes Preserve dignity and respect;Demonstrating care and respect;Lessen anxiety Interventions Facilitate understanding of limitations;Offer emotional support SALES SERVICE PROFESSIONAL * Lo Ambrosio LCSW - 06/28/2019 6:44 PM CST 06/28/19 1844 Trauma ID Able to ID Patient? Yes Patient Name Celestina Ewing Patient Date of 54 Emergency Contact Jt Contreras (friend) Contact Phone Number [phone] Level 1 SW responded to Level 1 pager. Pt self identified upon arrival with EMS. Now upgraded to level 1 and intubated. Per chart review, patient receives HH services through [facility]. SW contacted [facility] ([phone]) and spoke with on-call RN who provided a contact of Jt Contreras ). JAYNE contacted Jt by phone who indicated that he is a friend of the patient's and is aware that she is at [facility]. He states that the patient has a and daughters who live in [place] but hedoes not have contact information for them. Jt is working to get in contact with patient's family and has been provided with SW phone number for follow up. JAYNE will continue to follow. Lo Ambrosio LCSW SALES SERVICE PROFESSIONAL documented in this encounter H&P Notes * Migel Edwards MD - 06/30/2019 12:05 PM CST I have reviewed the H&P, examined the patient, and endorse the findings as written. Plan of Care : Based on the above findings, I consider Celestina Ewing to be an acceptable risk for : Procedure(s): IRRIGATION AND DEBRIDEMENT - TIBIA OPEN REDUCTION INTERNAL FIXATION TIBIA - PROXIMAL - SYNTHES OPEN REDUCTION INTERNAL FIXATION - ANKLE Cosigned by Jacobo Shoemaker MD at 06/30/2019 1:08 PM HOME SALES SERVICE PROFESSIONAL SALES SERVICE PROFESSIONAL SALES SERVICE PROFESSIONAL Source Note - Christel Flannery NP - 06/30/2019 9:14 AM HOME SALES SERVICE PROFESSIONAL Images from the original note were not included. [facility] Preoperative Assessment and Planning Preoperative Evaluation Record Evaluation type/location: IPAP at [facility] (Pods 2/3/5/MORTGAGE OR LOAN UNDERWRITER) Date: 06/30/19 Anesthesia Evaluation Celestina Ewing is a 68 y.o. female Procedure(s): IRRIGATION AND DEBRIDEMENT - TIBIA OPEN REDUCTION INTERNAL FIXATION TIBIA - PROXIMAL - SYNTHES OPEN REDUCTION INTERNAL FIXATION - ANKLE Pre-Op Diagnosis Codes: * Type III open displaced comminuted fracture of shaft of left tibia, initial encounter [I46.284H] HISTORY HPI Celestina Ewing is a 68 y.o. female who is being evaluated prior to undergoing ORIF tibia, s/p fall Past Medical History Information obtained from: chart. Neurological + Seizures (not currently on home med lists) Cardiovascular + Hypertension + Hyperlipidemia (on statin) + Systolic or diastolic dysfunction w/o CHF Diastolic function: stage I - impaired relaxation LVEF:50-60%. Comments: Pt noted to be on nury, beta geoff, and lasix 40mg bid Respiratory + Sleep apnea (SANTI) (mild to moderate per records) Comments: Noted to have inhalers in home med list Hepatic / Heme + History of anemia Liver disease: hx of fatty liver disease per records. Gastrointestinal + GERD - on daily therapy. Renal / + Renal disease (noted this admission) - ARF / CKD Musculoskeletal/Pain + Headaches - migraine headaches. Endocrine / Other + Obesity (BMI >30)- morbid obesity (BMI>40). Functional Capacity Functional capacity: cannot assess Review of Systems + previous transfusion (this admission) Comments: Unable to obtain, pt is intubated, no one with pt. PAT Summary and Plans Cardiac risk classification of planned procedure: intermediate cardiac risk. Initial preoperative evaluation discussed with: Marcos Sumner MD Additional comments: Celestina Ewing is a 68 y.o. female who is being evaluated prior to undergoing an intermediate cardiac risk surgery. Revised Cardiac Risk Index factors are (none) for a total RCRI of 0 out of 6. Functional capacity is unable to be assessed. Obstructive sleep apnea (SANTI) screening status is HIGH RISK due to known SANTI. Blood bank needs for day of procedure: Type and Screen only Reviewed recent labs 06/30/19: CBC with WBC=17.1, H/H=8/24.2, BMP=WNL Pt is currently intubated: VC/AC with rate=22, 40%, WB=269, peep=5 Has fentanyl at 50mcg infusion and propofol 25/mcg/kg/min History obtained from records in chart and notes. Unable to do ROS. Case reviewed and discussed with CPAP attending, unclear medical history. DPAP complete. Preoperative evaluation performed by Christel Flannery NP on 06/30/19 at 9:30 AM.. Patient Active Problem List Diagnosis ??? Bipolar I disorder with anxious distress (CMS/HCC) ??? Intractable seizure disorder (CMS/HCC) ??? Moderate essential hypertension ??? Syncope due to sick sinus syndrome (CMS/HCC) ??? Open displaced comminuted fracture of shaft of left tibia, type IIIA, IIIB, or IIIC History reviewed. No pertinent past medical history. Past Surgical History: Procedure Laterality Date ??? ACHILLES TENDON LENGTHENING Left 09/1991 ??? ANKLE SURGERY Left 2015 ??? APPENDECTOMY 1973 ??? BILATERAL SALPINGOOPHORECTOMY 12/1998 ??? BREAST BIOPSY Right 2000 and 2006 ??? DILATION AND CURETTAGE OF UTERUS 10/1986 ??? HYSTERECTOMY 05/1995 ??? NASAL SEPTUM SURGERY 1973 ??? REPLACEMENT TOTAL KNEE Left multiple left knee surgeries, including 3 knee replacements ??? SHOULDER SURGERY Right 08/2009 ??? TOE FUSION Left 08/1994 OB History No obstetric history on file. Allergies Allergen Reactions ??? Iodine Unknown ??? Latex Unknown ??? Other Unknown seafood ??? Sulfa (Sulfonamide Antibiotics) Unknown ??? Valium [Diazepam] Unknown Taking? Last Dose Start Date End Date Provider albuterol HFA (PROVENTIL HFA,VENTOLIN HFA,PROAIR HFA) 90 mcg/actuation inhaler -- -- Historical Provider, albuterol HFA (VENTOLIN HFA) 90 mcg/actuation inhaler 06/13/19 -- Historical Provider, amLODIPine (NORVASC) 10 mg tablet -- -- Historical Provider, atorvastatin (LIPITOR) 10 mg tablet 12/18/17 -- Historical Provider, baclofen (LIORESAL) 10 mg tablet -- -- Historical Provider, cetirizine (ZyrTEC) 10 mg tablet -- -- Historical Provider, cholecalciferol (cholecalciferol) 400 unit capsule -- -- Historical Provider, cloNIDine (CATAPRES) 0.2 mg tablet -- -- Historical Provider, cyclobenzaprine (FLEXERIL) 5 mg tablet -- -- Historical Provider, dicyclomine (BENTYL) 10 mg capsule -- -- Historical Provider, diphenhydrAMINE (BENADRYL) 25 mg capsule -- -- Historical Provider, docusate sodium (COLACE) 100 mg capsule -- -- Historical Provider, estradiol (ESTRACE) 0.5 mg tablet -- -- Historical Provider, famciclovir (FAMVIR) 250 mg tablet -- -- Historical Provider, fluticasone propionate (FLONASE) 50 mcg/actuation nasal spray 12/18/17 -- Historical Provider, fluticasone propionate (FLOVENT HFA) 110 mcg/actuation inhaler -- -- Historical Provider, furosemide (LASIX) 40 mg tablet -- -- Historical Provider, gabapentin (NEURONTIN) 400 mg capsule -- -- Historical Provider, hydrALAZINE (APRESOLINE) 50 mg tablet -- -- Historical Provider, HYDROcodone-acetaminophen (NORCO) 7.5-325 mg per tablet -- -- Historical Provider, HYDROcodone-acetaminophen (NORCO) 7.5-325 mg per tablet 06/14/19 -- Historical Provider, lidocaine (LIDODERM) 5 % 06/14/19 -- Historical Provider, meloxicam (MOBIC) 15 mg tablet -- -- Historical Provider, metoprolol (LOPRESSOR) 100 mg tablet -- -- Historical Provider, olmesartan (BENICAR) 40 mg tablet -- -- Historical Provider, ondansetron (ZOFRAN) 4 mg tablet 03/31/19 -- Historical Provider, pantoprazole DR (PROTONIX) 40 mg EC tablet -- -- Historical Provider, polyethylene glycol (MIRALAX) 17 gram/dose powder -- -- Historical Provider, primidone (MYSOLINE) 50 mg tablet -- -- Historical Provider, triamcinolone (KENALOG) 0.1 % cream 06/14/19 -- Historical Provider, vitamin E (AQUASOL E) 400 unit capsule -- -- Historical Provider, vitamin E acetate (VITAMIN E ORAL) 12/18/17 -- Historical Provider, zolpidem (AMBIEN) 10 mg tablet -- -- Historical Provider, zolpidem (AMBIEN) 10 mg tablet 06/13/19 -- Historical Provider, Ongoing Comment Hilda Red, OT 06/19/2019 9:37 PM gato wong Current Facility-Administered Medications: ??? acetaminophen (TYLENOL) 32 mg/mL oral solution 1,000 mg, 1,000 mg, feeding tube, Q6H KELIN, 1,000mg at 06/[birth year]/1937 ??? albuterol HFA (PROVENTIL HFA,VENTOLIN HFA,PROAIR HFA) 90 mcg/actuation inhaler 2 puff, 2 puff, inhalation, Q6H PRN (RT) ??? atorvastatin (LIPITOR) tablet 10 mg, 10 mg, feeding tube, Nightly, 10 mg at 06/29/192032 ??? ceFAZolin (ANCEF) 2,000 mg/20 mL in sterile water (premix) 2,000 mg, 2,000 mg, intravenous, Q8HSCH, Last Rate: 400 mL/hr at 06/30/19 08, 2,000 mg at 06/30/19825 ??? chlorhexidine (PERIDEX) 0.12 % solution 15 mL, 15 mL, mouth/throat, BID, 15 mL at 06/30/19904 ??? dextrose 5% and Lactated Ringer's infusion, 25 mL/hr, intravenous, Continuous, Last Rate: 25 mL/hr at 06/29/19 1900, 25 mL/hr at 06/29/19 1900 ??? docusate (COLACE) 10 mg/mL oral liquid 100 mg, 100 mg, feeding tube, BID, 100 mg at 06/30/19 0856 ??? esomeprazole DR (NexIUM) extended release oral suspension 40 mg, 40 mg, feeding tube, Daily, 40mg at 06/30/19904 ??? fentaNYL (SUBLIMAZE) bolus from bag 50 mcg, 50 mcg, intravenous, Q30 Min PRN, 50 mcg at 06/30/19 0825 ??? fentaNYL 2500 mcg/50 mL (50 mcg/mL) infusion (premix), 12.5-400 mcg/hr, intravenous, Titrated, Last Rate: 1 mL/hr at 06/29/19 1800, 50 mcg/hr at 06/29/19 1800 ??? gentamicin (GARAMYCIN) 370 mg in sodium chloride 0.9% 37 mL (10 mg/mL) syringe, 5 mg/kg (Adjusted), intravenous, Q24H, Last Rate: 0 mL/hr at 06/28/19 1751, 370 mg at 06/29/19 1748 ??? insulin lispro (HumaLOG) injection 1-3 Units, 1-3 Units, subcutaneous, Q4H KELIN ??? magnesium oxide (MAG-OX) tablet 800 mg, 800 mg, feeding tube, BID, 800 mg at 06/30/19 0905 ??? polyethylene glycol (MIRALAX) packet 17 g, 17 g, feeding tube, Daily, 17 g at 06/30/19904 ??? primidone (MYSOLINE) tablet 50 mg, 50 mg, feeding tube, BID, 50 mg at 06/30/19 09 ??? propofol (DIPRIVAN) IV, 5-50 mcg/kg/min, intravenous, Titrated, Last Rate: 16.13 mL/hr at 06/30/19 0825, 25 mcg/kg/min at 06/30/19 0825 ??? senna 1.76 mg/mL syrup 8.8 mg, 8.8 mg, feeding tube, BID, 8.8 mg at 06/30/19 0856 Social History Tobacco Use Smoking Status Not on file Substance and Sexual Activity Alcohol Use Not on file Substance and Sexual Activity Drug Use Not on file History reviewed. No pertinent family history. PAT Physical Exam Airway Exam: Mallampati: intubated Cervical ROM: unable to evaluate Cardiovascular Exam: Rate: tachycardia Rhythm: regular Peripheral edema: trace edema Pulmonary Exam: LCTA, bilat EENT Exam: trachea midline Skin Exam: Skin is warm and dry. Current state: Patient's current state is sedated. Line/Drains/Tubes/Devices: Lines in situ: A-line Respiratory devices: endotracheal tube and mechanical ventilation GI drains/tubes in place: OG tube Relevant diagnostics: ECG(s): 06/28/19: NSR, LVH, vent rate=92bpm Echocardiogram(s): 06/12/19: The left ventricle is normal in size. Left ventricular systolic function is normal. Ejection Fraction = 55-60%. There is trace tricuspid regurgitation. Right ventricular systolic pressure is normal. No aortic stenosis . Mild aortic regurgitation. There is no pericardial effusion. Grade I diastolic dysfunction, (abnormal relaxation pattern). ?? Stress test(s): N/A Cardiac catheterization(s): N/A PFT(s): N/A Vascular studies: 06/11/19: OVERALL IMPRESSION: A 16-49% stenosis right internal carotid artery with 1-15% stenosis noted on the left. Vertebral artery is not visualized. Other: Chest xray 06/29/19: Comparison is made chest radiograph dated 06/29/2019 at 12:31 AM. The endotracheal tube terminates in the midthoracic trachea. A gastric tube courses below the diaphragm. The cardiomediastinal silhouette is unchanged given differences in patient rotation. There are small lung volumes with bibasilar atelectasis. No pneumothorax or pleural effusion. ??chest abd CT 06/28/19: No acute intra-abdominal traumatic injury. ?? 2. Scattered, biapical groundglass opacities with septal line thickening may represent mild pulmonary edema. ?? 3. Mild bibasilar atelectasis. Head and cervical spine CT 06/28/19: . No acute intracranial abnormality, such as hemorrhage. 2. No evidence of acute fracture in the cervical spine. 3. Recommend follow up of the Incidental enlarged pituitary with MRI pituitary protocol if clinically indicated. ?? MRI brain 06/10/19: 1. There is no convincing acute/recent infarction. No intracranial hemorrhage or mass effect. 2. The 8-9 mm T1 intermediate sellar focus without significant mass effect on the optic chiasm is grossly similar in size in retrospect when compared to the previous CT face of 12/18/2017. Please correlate with laboratory data. The need for further characterization with nonemergent contrast-enhanced pituitary protocol MRI as clinically indicated. Vitals: 06/30/19 0500 06/30/19 0600 06/30/19 0857 BP: Pulse: 112 111 119 Resp: 22 22 Temp: 37.4 ??C (99.3 ??F) 37.3 ??C (99.1 ??F) SpO2: 95% PT: 06/28/2019: 12.1 sec INR: 06/28/2019: 1.1 APTT: 06/28/2019: 25 sec Hgb A1C: 06/10/2019: 6.2 %* CBC RBC: 06/30/2019: 2.87 M/cumm* RDW: 06/13/2019: 14.8 % MCHC: 06/30/2019: 33.1 g/dL MCH: 06/30/2019: 27.9 pg MCV: 06/30/2019: 84.3 fL Hct: 06/30/2019: 24.2 %* Hgb: 06/30/2019: 8.0 g/dL* WBC: 06/30/2019: 17.1 K/cumm* MPV: 06/30/2019: 11.4 fL Platelets: 06/30/2019: 188 K/cumm RDW CV: 06/30/2019: 18.4 %* RDW Sd: 06/30/2019: 55.6 fL* BMP Glucose: 06/30/2019: 140 mg/dL Calcium: 06/29/2019: 8.3 mg/dL* Sodium: 06/29/2019: 139 mmol/L Potassium: 06/29/2019: 4.6 mmol/L CO2: 06/29/2019: 30 mmol/L Chloride: 06/29/2019: 105 mmol/L BUN: 06/29/2019: 22 mg/dL Creatinine: 06/29/2019: 1.14 mg/dL* 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 female presented to the ICU with chief complaint of mechanical fall with open L tib/fib fracture. HPI: 68y/o F with unclear medical history but per prior records, HTN, seizure disorder, depression, chronic pain, asthma, GERD, SANTI, home O2 use presented to ED after same level fall. Prior to arrival, patient was given morphine by EMS and became hypotensive for which a tourniquet was placed to her LLE.In the ED, she was still hypotensive and given 2u PRBC. Per ED record, patient denied LOC or hitting head but was also lethargic and combative at times. HCT/Cspine CT negative. Per anesthesia, she was combative requiring large doses of narcotics and became lethargic requiring narcan and intubation.She also had hyperkalemia that was treated with calcium, insulin, and dextrose. Imaging revealed left open tib/fib fracture and R medial mal fracture. CTA LLE with no evidence of vascular injury. CT C/A/P with no acute injuries. In the ED, she received Gent and Ancef and was given TDAP. She was taken to the OR with Ortho Trauma and had L tib/fib I/D, ORIF, partial close, and wound vac placement and washout and splint placed to R medial mal fracture. Intraop she required Manfred and insulin infusion. OR totals include 1L IVF, 325ml UOP, and minimal EBL. Post op she remained intubated and was brought to the SICU on Manfred and insulin gtt for further management. On arrival she was stable on Manfred infusion, intubated, and sedated, with C collar and BLE splints inplace. History reviewed. No pertinent past medical history. History reviewed. No pertinent surgical history. Medications Prior to Admission Medication Sig Dispense Refill Last Dose ??? albuterol HFA (PROVENTIL HFA,VENTOLIN HFA,PROAIR HFA) 90 mcg/actuation inhaler Inhale 2 puffs every 4 (four) hours as needed for shortness of breath. Indications: Asthma Attack ??? amLODIPine (NORVASC) 10 mg tablet Take 10 mg by mouth daily. Indications: high blood pressure ??? atorvastatin (LIPITOR) 40 mg tablet Take 40 mg by mouth daily. Indications: excessive fat in the blood ??? baclofen (LIORESAL) 10 mg tablet Take 10 mg by mouth 3 (three) times a day as needed for musclespasms. Indications: muscle spasms caused by a spinal disease ??? cetirizine (ZyrTEC) 10 mg tablet Take 10 mg by mouth daily. Indications: Seasonal Runny Nose ??? cholecalciferol (cholecalciferol) 400 unit capsule Take 400 Units by mouth daily. Indications: Vitamin D deficiency ??? cloNIDine (CATAPRES) 0.2 mg tablet Take 0.2 mg by mouth 2 (two) times a day. Indications: high blood pressure ??? cyclobenzaprine (FLEXERIL) 5 mg tablet Take 5 mg by mouth every 6 (six) hours as needed for muscle spasms. Indications: muscle spasm ??? dicyclomine (BENTYL) 10 mg capsule Take 10 mg by mouth 3 (three) times a day. Indications: irritable colon ??? diphenhydrAMINE (BENADRYL) 25 mg capsule Take 25 mg by mouth every 8 (eight) hours as needed for itching. Indications: itching ??? docusate sodium (COLACE) 100 mg capsule Take 100 mg by mouth daily. Indications: constipation ??? estradiol (ESTRACE) 0.5 mg tablet Take 0.5 mg by mouth daily. Indications: hormone replacement ??? famciclovir (FAMVIR) 250 mg tablet Take 250 mg by mouth 2 (two) times a day. Indications: Other(complete free text reason below), herpes ??? fluticasone propionate (FLOVENT HFA) 110 mcg/actuation inhaler Inhale 2 puffs daily. Indications: Controller Medication for Asthma ??? furosemide (LASIX) 40 mg tablet Take 40 mg by mouth 2 (two) times a day. Indications: visible water retention ??? gabapentin (NEURONTIN) 400 mg capsule Take 400 mg by mouth daily. pt takes 800 mg at 2PM and 10PM Indications: Neuropathic Pain ??? hydrALAZINE (APRESOLINE) 50 mg tablet Take 50 mg by mouth 3 (three) times a day. Indications: high blood pressure ??? HYDROcodone-acetaminophen (NORCO) 7.5-325 mg per tablet Take 1 tablet by mouth every 8 (eight) hours as needed for pain. Indications: pain ??? meloxicam (MOBIC) 15 mg tablet Take 15 mg by mouth daily. Indications: joint damage causing pain and loss of function ??? metoprolol (LOPRESSOR) 100 mg tablet Take 100 mg by mouth 2 (two) times a day. Indications: high blood pressure ??? olmesartan (BENICAR) 40 mg tablet Take 40 mg by mouth daily. Indications: high blood pressure ??? pantoprazole DR (PROTONIX) 40 mg EC tablet Take 40 mg by mouth daily. Indications: Stress UlcerProphylaxis ??? polyethylene glycol (MIRALAX) 17 gram/dose powder Take 17 g by mouth daily. Indications: emptying of the bowel ??? primidone (MYSOLINE) 50 mg tablet Take 50 mg by mouth 2 (two) times a day. Indications: Essential Tremor ??? vitamin E (AQUASOL E) 400 unit capsule Take 800 Units by mouth daily. Indications: deficiency of vitamin E ??? zolpidem (AMBIEN) 10 mg tablet Take 10 mg by mouth nightly as needed for sleep. Indications: Difficulty Falling Asleep Allergies Allergen Reactions ??? Iodine Unknown ??? Latex Unknown ??? Other Unknown seafood ??? Sulfa (Sulfonamide Antibiotics) Unknown ??? Valium [Diazepam] Unknown Social History Tobacco Use ??? Smoking status: Not on file Substance Use Topics ??? Alcohol use: Not on file History reviewed. No pertinent family history. Review of Systems: Review of Systems Unable to perform ROS: Intubated Vitals: Most Recent : Vitals: 06/28/19 2348 BP: 133/80 Pulse: 92 Resp: 23 Temp: 36 ??C (96.8 ??F) SpO2: 100% Hemodynamics: MAP (mmHg): [48-150] 91 Pulmonary Support: O2 Therapy: Supplemental oxygen O2 Del Method: Endotracheal tube FiO2 (%): 40 % Adult Vent Mode: Volume control/Assist control FiO2 (%): 40 % S RR: 22 PEEP/CPAP/EPAP (cm H2O): 5 cm H20 Intake/Output: Intake/Output Summary (Last 24 hours) at 06/29/2019 0036 Last data filed at 06/28/2019 2335 Gross per 24 hour Intake 1500 ml Output 1625 ml Net -125 ml Objective Physical exam: Physical Exam Neuro: Intubated/sedated, PERRL, c collar in place Cardiac: S1 and S2, RRR, no M/G/R Pulmonary: Lungs clear to auscultation, respirations even/unlabored Abdominal: Soft/Nontender/Nondistended, normoactive bowel sounds Extremities: Anasarca, PPP, warm, pink Drains: Delarosa- clear yellow urine, OGT- clamped, LLE wound vac- serosang Wounds: BLE fx- under splints and nury wraps Lab/Radiology/Diagnostic Review: Laboratory review: Lab results in the last 12 hours: Recent Results (from the past 12 hour(s)) CBC with auto differential Collection Time: 06/28/19 5:02 PM Result Value Ref Range WBC 6.7 3.8 - 9.9 K/cumm Hgb 9.0 (L) 11.9 - 15.5 g/dL Hct 24.2 (L) 35.6 - 45.5 % Plt 195 150 - 400 K/cumm MPV 11.1 9.1 - 12.3 fL RBC 2.57 (L) 3.90 - 5.20 M/cumm MCV 94.2 81.3 - 96.4 fL MCH 35.0 (H) 27.1 - 33.3 pg MCHC 37.2 (H) 32.3 - 35.7 g/dL RDW CV 26.7 (H) 11.1 - 14.9 % RDW SD 69.5 (H) 35.7 - 48.1 fL NRBC abs 0.04 (H) 0.00 - 0.01 K/cumm Comprehensive metabolic panel Collection Time: 06/28/19 5:02 PM Result Value Ref Range Sodium 141 135 - 145 mmol/L Potassium, pl 6.9 (Critical) 3.3 - 4.9 mmol/L Chloride 103 97 - 110 mmol/L CO2 29 22 - 32 mmol/L Anion gap 9 2 - 15 mmol/L BUN 38 (H) 8 - 25 mg/dL Creatinine 1.50 (H) 0.60 - 1.10 mg/dL Glucose 211 (H) 70 - 199 mg/dL Calcium 8.8 8.5 - 10.3 mg/dL Bilirubin, total 0.2 0.1 - 1.2 mg/dL Protein, pl 6.2 (L) 6.5 - 8.5 g/dL Albumin 3.6 3.5 - 5.0 g/dL Alk phos 77 40 - 130 Units/L ALT 41 7 - 45 Units/L AST 43 10 - 45 Units/L Type and screen Collection Time: 06/28/19 5:02 PM Result Value Ref Range Triston, indirect Negative Protime-INR Collection Time: 06/28/19 5:02 PM Result Value Ref Range PT 12.1 8.6 - 13.0 sec INR 1.1 0.8 - 1.2 aPTT Collection Time: 06/28/19 5:02 PM Result Value Ref Range aPTT 25 25 - 37 sec VerifyNow aspirin Collection Time: 06/28/19 5:02 PM Result Value Ref Range VerifyNow aspirin 609 ARU Differential, auto Collection Time: 06/28/19 5:02 PM Result Value Ref Range Neutrophil abs 3.0 1.7 - 6.5 K/cumm Imm gran abs 0.2 (H) 0.0 - 0.1 K/cumm Lymphocyte abs 3.1 0.8 - 3.3 K/cumm Monocyte abs 0.3 0.2 - 0.8 K/cumm Eosinophil abs 0.1 0.0 - 0.5 K/cumm Basophil abs 0.0 0.0 - 0.1 K/cumm Neutrophil pct 44.6 % Imm gran pct 2.5 % Lymphocyte pct 46.5 % Monocyte pct 5.1 % Eosinophil pct 0.9 % Basophil pct 0.4 % Critical Result Callback Chemistry Collection Time: 06/28/19 5:02 PM Result Value Ref Range Date Notified [id number] Time Notified 1815 TestName Potassium Called/Read Back Mago BEJARANO Credentials RN Called By Katelynn Hanley Creatine kinase (CK), total Collection Time: 06/28/19 5:02 PM Result Value Ref Range CK 81 30 - 200 Units/L Ethanol Collection Time: 06/28/19 5:02 PM Result Value Ref Range Ethanol <10 <=10 mg/dL Troponin I Collection Time: 06/28/19 5:02 PM Result Value Ref Range Troponin I <0.03 0.00 - 0.03 ng/mL POCT glucose Collection Time: 06/28/19 5:18 PM Result Value Ref Range Glucose, POC 161 70 - 199 mg/dL POCT lactate Collection Time: 06/28/19 5:23 PM Result Value Ref Range Lactate POC i-STAT 1.5 0.7 - 2.2 mmol/L POCT creatinine Collection Time: 06/28/19 5:27 PM Result Value Ref Range Creatinine POC 1.4 (H) 0.6 - 1.1 mg/dL Blood gas, venous Collection Time: 06/28/19 5:35 PM Result Value Ref Range pH, Venous 7.27 (L) 7.32 - 7.43 PCO2, Venous 63 (H) 40 - 50 mmHg PO2, Venous 30 mmHg HCO3 Venous, Calculated 30 20 - 30 mmol/L BE, venous 1 mmol/L Thrombocyte inhibited fibrinogen (FIBTEM) Collection Time: 06/28/19 5:35 PM Result Value Ref Range Maximum Clot Firm-Fibrinogen 12 9 - 29 mm Extrensic thromboelastometry (EXTEM) Collection Time: 06/28/19 5:35 PM Result Value Ref Range Clotting Time-Extrinsic 81 (H) 42 - 60 sec Clot Formation Time-Extrinsic 145 (H) 45 - 131 sec Angle-Extrinsic 62 (L) 65 - 83 Degree Max Clot Firmness-Extrinsic 51 (L) 53 - 75 mm Lysis 30-Extrinsic 100 85 - 100 % Urinalysis reflex to microscopic and culture Urine, indwelling catheter Collection Time: 06/28/19 6:54 PM Result Value Ref Range Color, ur Yellow Yellow Clarity, ur Clear Clear Specific gravity, ur 1.013 1.010 - 1.025 pH, urine 6 Protein, ur ql 1+ (A) Negative Glucose, ur ql Negative Negative Ketones, ur Negative Negative Bilirubin, ur Negative Negative Blood, ur Negative Negative Urobilinogen, ur <2.0 <2.0 mg/dL Nitrite, ur Negative Negative Leukocyte esterase, ur 1+ (A) Negative UA reflex comment Reflex to microscopic UA will be performed. Drugs of Abuse Screen, Urine with Reflex Confirmation Collection Time: 06/28/19 6:54 PM Result Value Ref Range Amphetamine, ur Not Detected CutOff 500ng/mL Barbiturates, ur Detected (A) CutOff 200ng/mL Benzodiazepines, ur Not Detected CutOff 100ng/mL Cannabinoids, ur Not Detected CutOff 50 ng/mL Cocaine, ur Not Detected CutOff 150ng/mL Fentanyl, Ur Detected (A) Cutoff 1 ng/mL Methadone, ur Not Detected CutOff 300ng/mL Opiates, ur Detected (A) CutOff 300ng/mL Oxycodone, ur Not Detected CutOff 100ng/mL Phencyclidine, ur Not Detected CutOff 25 ng/mL Urine Creatinine 42 mg/dL Blood gas, arterial Collection Time: 06/28/19 6:54 PM Result Value Ref Range pH, Art POC 7.45 7.35 - 7.45 PCO2, Arterial 39 35 - 45 mmHg PO2, Arterial 192 (H) 83 - 108 mmHg HCO3 Art (Calculated) 28 20 - 30 mmol/L BE, art 3 mmol/L O2 Sat Art (Measured) 99 (H) 90 - 95 % Potassium, whole blood Collection Time: 06/28/19 6:54 PM Result Value Ref Range Potassium, bld 5.6 (H) 3.3 - 4.9 mmol/L Urinalysis, microscopic only Collection Time: 06/28/19 6:54 PM Result Value Ref Range WBC, ur 6-10 (A) 0 - 5 /HPF RBC, ur 0-2 0 - 2 /HPF Hyaline casts, ur 11-20 (A) 0 - 10 /LPF Culture Reflex Comment Reflex conditions for urine culture (WBC >10) not met. POCT hCG, urine Collection Time: 06/28/19 7:23 PM Result Value Ref Range HCG, ur, POC Negative Lot Number [id number] QC Backgroud Clear Acceptable QC Control Line Acceptable POCT glucose Collection Time: 06/28/19 7:31 PM Result Value Ref Range Glucose, POC 176 70 - 199 mg/dL POCT glucose Collection Time: 06/28/19 8:26 PM Result Value Ref Range Glucose, POC 267 (H) 70 - 199 mg/dL CBC with auto differential Collection Time: 06/28/19 8:42 PM Result Value Ref Range WBC 20.3 (H) 3.8 - 9.9 K/cumm Hgb 8.5 (L) 11.9 - 15.5 g/dL Hct 26.4 (L) 35.6 - 45.5 % Plt 188 150 - 400 K/cumm MPV 11.3 9.1 - 12.3 fL RBC 3.07 (L) 3.90 - 5.20 M/cumm MCV 86.0 81.3 - 96.4 fL MCH 27.7 27.1 - 33.3 pg MCHC 32.2 (L) 32.3 - 35.7 g/dL RDW CV 20.5 (H) 11.1 - 14.9 % RDW SD 63.5 (H) 35.7 - 48.1 fL NRBC abs 0.02 (H) 0.00 - 0.01 K/cumm Differential, auto Collection Time: 06/28/19 8:42 PM Result Value Ref Range Neutrophil abs 15.4 (H) 1.7 - 6.5 K/cumm Imm gran abs 0.6 (H) 0.0 - 0.1 K/cumm Lymphocyte abs 2.8 0.8 - 3.3 K/cumm Monocyte abs 1.2 (H) 0.2 - 0.8 K/cumm Eosinophil abs 0.2 0.0 - 0.5 K/cumm Basophil abs 0.1 0.0 - 0.1 K/cumm Neutrophil pct 76.0 % Imm gran pct 3.1 % Lymphocyte pct 13.9 % Monocyte pct 5.8 % Eosinophil pct 0.9 % Basophil pct 0.3 % Type and screen Collection Time: 06/28/19 10:02 PM Result Value Ref Range ABO Rh A Positive Triston, indirect Negative POC Blood Gas and Chemistries, Venous - Collection Time: 06/28/19 10:25 PM Result Value Ref Range pH, Rj POC 7.35 7.32 - 7.43 pCO2, Rj POC 52 (H) 40 - 50 mmHg pO2, Rj POC 29 mmHg Na, POC 138 135 - 145 mmol/L K, POC 4.9 3.3 - 4.9 mmol/L Cl, POC 102 97 - 110 mmol/L Ionized Ca, POC 5.38 (H) 4.50 - 5.10 mg/dL Glucose, POC 236 (H) 70 - 199 mg/dL Lactate, POC 3.3 (H) 0.7 - 2.2 mmol/L O2 Sat, Rj POC (Gorge) 52 % Base Excess, POC 2.1 mmol/L HCO3, Rj POC 29 20 - 30 mmol/L Hct, POC 24.0 (L) 36.3 - 45.3 % Total Hb, POC 7.9 (L) 11.9 - 15.5 g/dL O2 Sat, Rj POC (Calc) 51 % POCT glucose Collection Time: 06/28/19 11:33 PM Result Value Ref Range Glucose, POC 228 (H) 70 - 199 mg/dL Glucose comment 1 RN Notified CBC with auto differential Collection Time: 06/29/19 12:00 AM Result Value Ref Range WBC 21.3 (H) 3.8 - 9.9 K/cumm Hgb 8.5 (L) 11.9 - 15.5 g/dL Hct 26.0 (L) 35.6 - 45.5 % Plt 225 150 - 400 K/cumm MPV 11.1 9.1 - 12.3 fL RBC 3.02 (L) 3.90 - 5.20 M/cumm MCV 86.1 81.3 - 96.4 fL MCH 28.1 27.1 - 33.3 pg MCHC 32.7 32.3 - 35.7 g/dL RDW CV 20.8 (H) 11.1 - 14.9 % RDW SD 63.0 (H) 35.7 - 48.1 fL NRBC abs 0.02 (H) 0.00 - 0.01 K/cumm Potassium, whole blood Collection Time: 06/29/19 12:00 AM Result Value Ref Range Potassium, bld 4.6 3.3 - 4.9 mmol/L Calcium, ionized Collection Time: 06/29/19 12:00 AM Result Value Ref Range Calcium, Ionized 4.75 4.50 - 5.10 mg/dL Blood gas, arterial Collection Time: 06/29/19 12:00 AM Result Value Ref Range pH, Art POC 7.46 (H) 7.35 - 7.45 PCO2, Arterial 36 35 - 45 mmHg PO2, Arterial 71 (L) 83 - 108 mmHg HCO3 Art (Calculated) 27 20 - 30 mmol/L BE, art 3 mmol/L O2 Sat Art (Measured) 95 90 - 95 % Lactate, whole blood Collection Time: 06/29/19 12:00 AM Result Value Ref Range Lactate, bld 3.1 (H) 0.7 - 2.0 mmol/L Differential, auto Collection Time: 06/29/19 12:00 AM Result Value Ref Range Neutrophil abs 16.5 (H) 1.7 - 6.5 K/cumm Imm gran abs 0.6 (H) 0.0 - 0.1 K/cumm Lymphocyte abs 2.7 0.8 - 3.3 K/cumm Monocyte abs 1.4 (H) 0.2 - 0.8 K/cumm Eosinophil abs 0.1 0.0 - 0.5 K/cumm Basophil abs 0.1 0.0 - 0.1 K/cumm Neutrophil pct 77.7 % Imm gran pct 2.6 % Lymphocyte pct 12.7 % Monocyte pct 6.4 % Eosinophil pct 0.3 % Basophil pct 0.3 % POCT glucose Collection Time: 06/29/19 12:02 AM Result Value Ref Range Glucose, POC 195 70 - 199 mg/dL Recent Results (from the past 48 hour(s)) CBC with auto differential Collection Time: 06/28/19 5:02 PM Result Value Ref Range WBC 6.7 3.8 - 9.9 K/cumm Hgb 9.0 (L) 11.9 - 15.5 g/dL Hct 24.2 (L) 35.6 - 45.5 % Plt 195 150 - 400 K/cumm MPV 11.1 9.1 - 12.3 fL RBC 2.57 (L) 3.90 - 5.20 M/cumm MCV 94.2 81.3 - 96.4 fL MCH 35.0 (H) 27.1 - 33.3 pg MCHC 37.2 (H) 32.3 - 35.7 g/dL RDW CV 26.7 (H) 11.1 - 14.9 % RDW SD 69.5 (H) 35.7 - 48.1 fL NRBC abs 0.04 (H) 0.00 - 0.01 K/cumm Comprehensive metabolic panel Collection Time: 06/28/19 5:02 PM Result Value Ref Range Sodium 141 135 - 145 mmol/L Potassium, pl 6.9 (Critical) 3.3 - 4.9 mmol/L Chloride 103 97 - 110 mmol/L CO2 29 22 - 32 mmol/L Anion gap 9 2 - 15 mmol/L BUN 38 (H) 8 - 25 mg/dL Creatinine 1.50 (H) 0.60 - 1.10 mg/dL Glucose 211 (H) 70 - 199 mg/dL Calcium 8.8 8.5 - 10.3 mg/dL Bilirubin, total 0.2 0.1 - 1.2 mg/dL Protein, pl 6.2 (L) 6.5 - 8.5 g/dL Albumin 3.6 3.5 - 5.0 g/dL Alk phos 77 40 - 130 Units/L ALT 41 7 - 45 Units/L AST 43 10 - 45 Units/L Type and screen Collection Time: 06/28/19 5:02 PM Result Value Ref Range Triston, indirect Negative Protime-INR Collection Time: 06/28/19 5:02 PM Result Value Ref Range PT 12.1 8.6 - 13.0 sec INR 1.1 0.8 - 1.2 aPTT Collection Time: 06/28/19 5:02 PM Result Value Ref Range aPTT 25 25 - 37 sec VerifyNow aspirin Collection Time: 06/28/19 5:02 PM Result Value Ref Range VerifyNow aspirin 609 ARU Differential, auto Collection Time: 06/28/19 5:02 PM Result Value Ref Range Neutrophil abs 3.0 1.7 - 6.5 K/cumm Imm gran abs 0.2 (H) 0.0 - 0.1 K/cumm Lymphocyte abs 3.1 0.8 - 3.3 K/cumm Monocyte abs 0.3 0.2 - 0.8 K/cumm Eosinophil abs 0.1 0.0 - 0.5 K/cumm Basophil abs 0.0 0.0 - 0.1 K/cumm Neutrophil pct 44.6 % Imm gran pct 2.5 % Lymphocyte pct 46.5 % Monocyte pct 5.1 % Eosinophil pct 0.9 % Basophil pct 0.4 % Critical Result Callback Chemistry Collection Time: 06/28/19 5:02 PM Result Value Ref Range Date Notified [id number] Time Notified 1815 TestName Potassium Called/Read Back Mago BEJARANO Credentials RN Called By Katelynn Hanley Creatine kinase (CK), total Collection Time: 06/28/19 5:02 PM Result Value Ref Range CK 81 30 - 200 Units/L Ethanol Collection Time: 06/28/19 5:02 PM Result Value Ref Range Ethanol <10 <=10 mg/dL Troponin I Collection Time: 06/28/19 5:02 PM Result Value Ref Range Troponin I <0.03 0.00 - 0.03 ng/mL POCT glucose Collection Time: 06/28/19 5:18 PM Result Value Ref Range Glucose, POC 161 70 - 199 mg/dL POCT lactate Collection Time: 06/28/19 5:23 PM Result Value Ref Range Lactate POC i-STAT 1.5 0.7 - 2.2 mmol/L POCT creatinine Collection Time: 06/28/19 5:27 PM Result Value Ref Range Creatinine POC 1.4 (H) 0.6 - 1.1 mg/dL Blood gas, venous Collection Time: 06/28/19 5:35 PM Result Value Ref Range pH, Venous 7.27 (L) 7.32 - 7.43 PCO2, Venous 63 (H) 40 - 50 mmHg PO2, Venous 30 mmHg HCO3 Venous, Calculated 30 20 - 30 mmol/L BE, venous 1 mmol/L Thrombocyte inhibited fibrinogen (FIBTEM) Collection Time: 06/28/19 5:35 PM Result Value Ref Range Maximum Clot Firm-Fibrinogen 12 9 - 29 mm Extrensic thromboelastometry (EXTEM) Collection Time: 06/28/19 5:35 PM Result Value Ref Range Clotting Time-Extrinsic 81 (H) 42 - 60 sec Clot Formation Time-Extrinsic 145 (H) 45 - 131 sec Angle-Extrinsic 62 (L) 65 - 83 Degree Max Clot Firmness-Extrinsic 51 (L) 53 - 75 mm Lysis 30-Extrinsic 100 85 - 100 % Urinalysis reflex to microscopic and culture Urine, indwelling catheter Collection Time: 06/28/19 6:54 PM Result Value Ref Range Color, ur Yellow Yellow Clarity, ur Clear Clear Specific gravity, ur 1.013 1.010 - 1.025 pH, urine 6 Protein, ur ql 1+ (A) Negative Glucose, ur ql Negative Negative Ketones, ur Negative Negative Bilirubin, ur Negative Negative Blood, ur Negative Negative Urobilinogen, ur <2.0 <2.0 mg/dL Nitrite, ur Negative Negative Leukocyte esterase, ur 1+ (A) Negative UA reflex comment Reflex to microscopic UA will be performed. Drugs of Abuse Screen, Urine with Reflex Confirmation Collection Time: 06/28/19 6:54 PM Result Value Ref Range Amphetamine, ur Not Detected CutOff 500ng/mL Barbiturates, ur Detected (A) CutOff 200ng/mL Benzodiazepines, ur Not Detected CutOff 100ng/mL Cannabinoids, ur Not Detected CutOff 50 ng/mL Cocaine, ur Not Detected CutOff 150ng/mL Fentanyl, Ur Detected (A) Cutoff 1 ng/mL Methadone, ur Not Detected CutOff 300ng/mL Opiates, ur Detected (A) CutOff 300ng/mL Oxycodone, ur Not Detected CutOff 100ng/mL Phencyclidine, ur Not Detected CutOff 25 ng/mL Urine Creatinine 42 mg/dL Blood gas, arterial Collection Time: 06/28/19 6:54 PM Result Value Ref Range pH, Art POC 7.45 7.35 - 7.45 PCO2, Arterial 39 35 - 45 mmHg PO2, Arterial 192 (H) 83 - 108 mmHg HCO3 Art (Calculated) 28 20 - 30 mmol/L BE, art 3 mmol/L O2 Sat Art (Measured) 99 (H) 90 - 95 % Potassium, whole blood Collection Time: 06/28/19 6:54 PM Result Value Ref Range Potassium, bld 5.6 (H) 3.3 - 4.9 mmol/L Urinalysis, microscopic only Collection Time: 06/28/19 6:54 PM Result Value Ref Range WBC, ur 6-10 (A) 0 - 5 /HPF RBC, ur 0-2 0 - 2 /HPF Hyaline casts, ur 11-20 (A) 0 - 10 /LPF Culture Reflex Comment Reflex conditions for urine culture (WBC >10) not met. POCT hCG, urine Collection Time: 06/28/19 7:23 PM Result Value Ref Range HCG, ur, POC Negative Lot Number [id number] QC Backgroud Clear Acceptable QC Control Line Acceptable POCT glucose Collection Time: 06/28/19 7:31 PM Result Value Ref Range Glucose, POC 176 70 - 199 mg/dL POCT glucose Collection Time: 06/28/19 8:26 PM Result Value Ref Range Glucose, POC 267 (H) 70 - 199 mg/dL CBC with auto differential Collection Time: 06/28/19 8:42 PM Result Value Ref Range WBC 20.3 (H) 3.8 - 9.9 K/cumm Hgb 8.5 (L) 11.9 - 15.5 g/dL Hct 26.4 (L) 35.6 - 45.5 % Plt 188 150 - 400 K/cumm MPV 11.3 9.1 - 12.3 fL RBC 3.07 (L) 3.90 - 5.20 M/cumm MCV 86.0 81.3 - 96.4 fL MCH 27.7 27.1 - 33.3 pg MCHC 32.2 (L) 32.3 - 35.7 g/dL RDW CV 20.5 (H) 11.1 - 14.9 % RDW SD 63.5 (H) 35.7 - 48.1 fL NRBC abs 0.02 (H) 0.00 - 0.01 K/cumm Differential, auto Collection Time: 06/28/19 8:42 PM Result Value Ref Range Neutrophil abs 15.4 (H) 1.7 - 6.5 K/cumm Imm gran abs 0.6 (H) 0.0 - 0.1 K/cumm Lymphocyte abs 2.8 0.8 - 3.3 K/cumm Monocyte abs 1.2 (H) 0.2 - 0.8 K/cumm Eosinophil abs 0.2 0.0 - 0.5 K/cumm Basophil abs 0.1 0.0 - 0.1 K/cumm Neutrophil pct 76.0 % Imm gran pct 3.1 % Lymphocyte pct 13.9 % Monocyte pct 5.8 % Eosinophil pct 0.9 % Basophil pct 0.3 % Type and screen Collection Time: 06/28/19 10:02 PM Result Value Ref Range ABO Rh A Positive Triston, indirect Negative POC Blood Gas and Chemistries, Venous - Collection Time: 06/28/19 10:25 PM Result Value Ref Range pH, Rj POC 7.35 7.32 - 7.43 pCO2, Rj POC 52 (H) 40 - 50 mmHg pO2, Rj POC 29 mmHg Na, POC 138 135 - 145 mmol/L K, POC 4.9 3.3 - 4.9 mmol/L Cl, POC 102 97 - 110 mmol/L Ionized Ca, POC 5.38 (H) 4.50 - 5.10 mg/dL Glucose, POC 236 (H) 70 - 199 mg/dL Lactate, POC 3.3 (H) 0.7 - 2.2 mmol/L O2 Sat, Rj POC (Gorge) 52 % Base Excess, POC 2.1 mmol/L HCO3, Rj POC 29 20 - 30 mmol/L Hct, POC 24.0 (L) 36.3 - 45.3 % Total Hb, POC 7.9 (L) 11.9 - 15.5 g/dL O2 Sat, Rj POC (Calc) 51 % POCT glucose Collection Time: 06/28/19 11:33 PM Result Value Ref Range Glucose, POC 228 (H) 70 - 199 mg/dL Glucose comment 1 RN Notified Potassium, whole blood Collection Time: 06/29/19 12:00 AM Result Value Ref Range Potassium, bld 4.6 3.3 - 4.9 mmol/L Blood gas, arterial Collection Time: 06/29/19 12:00 AM Result Value Ref Range pH, Art POC 7.46 (H) 7.35 - 7.45 PCO2, Arterial 36 35 - 45 mmHg PO2, Arterial 71 (L) 83 - 108 mmHg HCO3 Art (Calculated) 27 20 - 30 mmol/L BE, art 3 mmol/L O2 Sat Art (Measured) 95 90 - 95 % Lactate, whole blood Collection Time: 06/29/19 12:00 AM Result Value Ref Range Lactate, bld 3.1 (H) 0.7 - 2.0 mmol/L POCT glucose Collection Time: 06/29/19 12:02 AM Result Value Ref Range Glucose, POC 195 70 - 199 mg/dL Xr Knee Left 1 Or 2 Views Result Date: 06/28/2019 1. Open comminuted periprosthetic fracture of the proximal left tibia 2. Open comminuted fracture of the proximal left fibula 3. Mildly displaced intra- articular right medial malleolus fracture 4. Noacute pelvic fracture. Dictated by: Luh Moffett M.D. Xr Tibia Fibula Left 2 Views Result Date: 06/28/2019 1. Open comminuted periprosthetic fracture of the proximal left tibia 2. Open comminuted fracture of the proximal left fibula 3. Mildly displaced intra- articular right medial malleolus fracture 4. Noacute pelvic fracture. Dictated by: Luh Moffett M.D. Xr Tibia Fibula Right 2 Views Result Date: 06/28/2019 1. Open comminuted periprosthetic fracture of the proximal left tibia 2. Open comminuted fracture of the proximal left fibula 3. Mildly displaced intra- articular right medial malleolus fracture 4. Noacute pelvic fracture. Dictated by: Luh Moffett M.D. Xr Ankle Left 3 Or More Views Result Date: 06/28/2019 1. Open comminuted periprosthetic fracture of the proximal left tibia 2. Open comminuted fracture of the proximal left fibula 3. Mildly displaced intra- articular right medial malleolus fracture 4. Noacute pelvic fracture. Dictated by: Luh Moffett M.D. Xr Ankle Right 3 Or More Views Result Date: 06/28/2019 1. Open comminuted periprosthetic fracture of the proximal left tibia 2. Open comminuted fracture of the proximal left fibula 3. Mildly displaced intra- articular right medial malleolus fracture 4. Noacute pelvic fracture. Dictated by: Luh Moffett M.D. Cta Lower Extremity Left Result Date: 06/28/2019 1. Left lower extremity: Three-vessel runoff. 2. Non-opacification of a left peroneal artery proximal segment with distal reconstitution is favored to represent focal vasospasm/stenosis secondary to extrinsic arterial compression from the surrounding muscular edema. No evidence of arterial injury. 3. Markedly comminuted, open, angulated, and displaced periprosthetic fracture of the left proximal tibia. 4. Comminuted, angulated, and displaced fracture of the left proximal fibula. 5. Marked muscular intensity adjacent edema of the distal left lower extremity. Dictated by: Mikhail Beyer Xr Chest 1 Vw Portable Result Date: 06/28/2019 1st is made to same day chest CT. There is an endotracheal tube which terminates 1.3 cm above the jesús. A gastric tube projects below the left hemidiaphragm, extending at least to the body of the stomach. Lung volumes are decreased with bibasilar atelectasis. There are right upper lung predominant opacities correlate with areas of groundglass opacity seen on CT and may represent asymmetric pulmonary edema. There is no pleural effusion or pneumothorax. Cardiomediastinal contours are within normal limits accounting for portable technique and low lung volumes. Dictated by: Luh Moffett M.D. Xr Femur Left 2 Or More Views Result Date: 06/28/2019 1. Open comminuted periprosthetic fracture of the proximal left tibia 2. Open comminuted fracture of the proximal left fibula 3. Mildly displaced intra- articular right medial malleolus fracture 4. Noacute pelvic fracture. Dictated by: Luh Moffett M.D. Ct Chest Abdomen Pelvis W Contrast Result Date: 06/28/2019 1. No acute intra-abdominal traumatic injury. 2. Scattered, biapical groundglass opacities with septal line thickening may represent mild pulmonary edema. 3. Mild bibasilar atelectasis. Dictated by: Mikhail Beyer Xr Pelvis 1 Or 2 Views Result Date: 06/28/2019 1. Open comminuted periprosthetic fracture of the proximal left tibia 2. Open comminuted fracture of the proximal left fibula 3. Mildly displaced intra- articular right medial malleolus fracture 4. Noacute pelvic fracture. Dictated by: Luh Moffett M.D. Ct Head And Cervical Spine Wo Contrast Result Date: 06/28/2019 No acute intracranial abnormality, such as hemorrhage No evidence of acute fracture in the cervicalspine. Dictated by: Adithya Murphy M.D. Assessment/Plan Principal Problem: Open displaced comminuted fracture of shaft of left tibia, type IIIA, IIIB, or IIIC Plan of Care: NEURO: #Acute Pain: 2/2 fall with fractures -Fentanyl infusion. #Agitation requiring sedation protocol: -Propofol infusion for RASS 0 to -1. #Seizure disorder: chronic, per medical record -Per last found med list in medical record, patient takes Primidone and Depakote. -Positive for barbituates on UDS. -Primidone restarted. -Depakote level ordered to see if patient actually taking. -Will attempt to clarify home meds in AM. CV: #Hypotension: likely 2/2 anesthesia/sedation -Normotensive in ED after given PRBC and narcotics reversed. -Intraop required Manfred after induction. -Manfred for MAP >65. -Labs pending. #Lactic acidosis: -Lactate 3.1. 1L LR given. -Repeat lactate post bolus pending. #HTN: Chronic per old medical records -Verify home meds in AM. -Records show pt taking different agents at different times, including Amlodipine, olmesartan, clonidine, hydralazine, metop, and lasix. ECHO 06/12/19- EF 55-60%, trace TR, mild AR, grade I diastolic dysfunction, otherwise normal PULM: #Acute Respiratory Failure: unclear what prompted intubation in ED, per anesthesia combativeness vsover narcotization -ACVC 22/450/40/5. -ABG 7.46/36/71/27. -CXR with ETT ~2.7cm above jesús. -Plan to leave intubated tonight for possible return to OR tomorrow. -BEST in AM. GI: Diet: NPO. OGT to LIS. Below GE junction on CXR. Bowel regimen: Colace and senna. #GERD: Chronic per records -Nexium per tube. ENDO: #Hyperglycemia: no known history DM -Hgb A1c 6.2 in May. -Insulin gtt, will try to transition to SSI. RENAL: #LUAN: likely hypotension vs other -BUN/Cr 38/1.41. Cr on previous admission 0.8-0.9. -UOP adequate via Delarosa catheter. -Avoid nephrotoxins. -Renally dose medications. HEME: #ABLA: likely 2/2 injury/surgery -H/H 04/18 pre op-->8.12/18 post op. -2u PRBC in ED. -CTA LLE without evidence of arterial injury. -No s/s bleeding, no indication for transfusion, continue to monitor closely. -Repeat CBC at 0500. ID: #Leukocytosis: likely reactive -WBC 6-->21. Hypothermic requiring warming blanket. -Ancef and Gent continued until return to OR for open fractures. -No evidence of infection. MSK: #Left open tib/fib fracture: 2/2 fall -S/p I/D, ORIF, splint, partial close and wound vac 06/28. -Ortho Trauma following. -Plan to return to OR for further repair or Wednesday. -NWB. #Right medial mal fracture: 2/2 fall -S/p washout and splint 06/28. -Ortho Trauma following. -Plan to return to OR for further repair or Wednesday. -NWB. Intensive Care Unit Standards of Care: DVT prophylaxis: SCDs, Lovenox. Vascular access: PIVs, R groin Cordis (will be removed as it was placed dirty in ED). Goals of care: Full code. Brittany Serrano NP Cosigned by Ina Russo MD at 06/29/2019 5:35 AM HOME SALES SERVICE PROFESSIONAL SALES SERVICE PROFESSIONAL SALES SERVICE PROFESSIONAL documented in this encounter Procedure Notes * Roxanne Gomez NP - 07/01/2019 7:09 AM CSTAssociated Order(s): Critical Care Post-Procedure Diagnose(s): Hypotension due to drugs; Acute postoperative pain; Bilateral lower extremity pain; Bipolar I disorder with anxious distress (HCC); Intractable seizure disorder (CMS/HCC) (HCC); Moderate essential hypertension; Syncope due to sick sinus syndrome (CMS/HCC) (HCC) Critical Care Performed by: Roxanne Gomez NP Authorized by: Roxanne Gomez NP CRITICAL CARE: Team: SICU BLUE Shift: AM Level of Billing: Subsequent Hospital Visit Level 3 My time spent with this patient was 75 minutes: Critical Provider Statement: I have seen and examined the patient on this day of service. I have reviewed and confirmed the history, physical exam, laboratory, and radiographic data as documented in the ICU note. I have reviewed and discussed my treatment plan with the patient's team and other medical/service consultant staff. This time was in addition to and separate from care provided by other practitioners on this day of service. I spent time reviewing and interpreting data from bedside monitors, laboratory results, and imaging, I spent time discussing the management of this critically ill patient with consultants and the medical staff and I spent time documenting in the medical record SALES SERVICE PROFESSIONAL * Ina Flor PA - 06/30/2019 7:50 PM CSTAssociated Order(s): Critical Care Post-Procedure Diagnose(s): Type III open displaced comminuted fracture of shaft of left tibia, initial encounter Critical Care Performed by: JOSE CRUZ Hinton Authorized by: JOSE CRUZ Hinton CRITICAL CARE: Team: SICU BLUE Shift: PM Level of Billing: Critical Care My time spent with this patient was 75 minutes: Critical Provider Statement: I have seen and examined the patient on this day of service. I have reviewed and confirmed the history, physical exam, laboratory and radiologic data as documented in thesigned ICU note. I have reviewed and discussed my treatment plan with the ICU team and other medical/service consultant staff, making frequent assessments and decisions regarding this patient's complex medical care. Critical Care time was exclusive of time spent performing separately billed procedures, treating other patients, and teaching. This time was in addition to and separate from critical care provided by other practitioners in my group on this day of service. Critical Care was necessary to treat or prevent imminent or life-threatening deterioration of the following conditions: Acute pain/acute postoperative pain Acute undifferentiated respiratory failure Acute kidney injury This time was spent by me doing the following: Acute pain control and Active titration of continuous sedation Active and frequent reassessment of respiratory status and oxygen requirements and Invasive ventilator management, reassessment, and titration Active and frequent monitoring of intake/output and volumen status and Glycemic control Empiric broad coverage antibiotics I spent time reviewing and interpreting data from bedside monitors, laboratory results, and imaging, I spent time discussing the management of this critically ill patient with consultants and the medical staff and I spent time documenting in the medical record Cosigned by Jameson Skinner MD at 07/01/2019 5:32 AM HOME SALES SERVICE PROFESSIONAL SALES SERVICE PROFESSIONAL SALES SERVICE PROFESSIONAL * Roxanne Gomez NP - 06/30/2019 6:51 AM CSTAssociated Order(s): Critical Care Post-Procedure Diagnose(s): Type III open displaced comminuted fracture of shaft of left tibia, initial encounter Critical Care Performed by: Roxanne Gomez NP Authorized by: Roxanne Gomez NP CRITICAL CARE: Team: SICU BLUE Shift: AM Level of Billing: Subsequent Hospital Visit Level 3 My time spent with this patient was 75 minutes: Critical Provider Statement: I have seen and examined the patient on this day of service. I have reviewed and confirmed the history, physical exam, laboratory, and radiographic data as documented in the ICU note. I have reviewed and discussed my treatment plan with the patient's team and other medical/service consultant staff. This time was in addition to and separate from care provided by other practitioners on this day of service. I spent time reviewing and interpreting data from bedside monitors, laboratory results, and imaging, I spent time discussing the management of this critically ill patient with consultants and the medical staff and I spent time documenting in the medical record SALES SERVICE PROFESSIONAL * Ina Flor PA - 06/29/2019 7:35 PM CSTAssociated Order(s): Critical Care Post-Procedure Diagnose(s): Type III open displaced comminuted fracture of shaft of left tibia, initial encounter Critical Care Performed by: JOSE CRUZ Hinton Authorized by: JOSE CRUZ Hinton CRITICAL CARE: Team: SICU BLUE Shift: PM Level of Billing: Critical Care My time spent with this patient was 75 minutes: Critical Provider Statement: I have seen and examined the patient on this day of service. I have reviewed and confirmed the history, physical exam, laboratory and radiologic data as documented in thesigned ICU note. I have reviewed and discussed my treatment plan with the ICU team and other medical/service consultant staff, making frequent assessments and decisions regarding this patient's complex medical care. Critical Care time was exclusive of time spent performing separately billed procedures, treating other patients, and teaching. This time was in addition to and separate from critical care provided by other practitioners in my group on this day of service. Critical Care was necessary to treat or prevent imminent or life-threatening deterioration of the following conditions: Acute pain/acute postoperative pain and Agitation requiring sedation Acute undifferentiated respiratory failure Acute kidney injury Acute blood loss anemia Sepsis Severe long-bone fracture This time was spent by me doing the following: Acute pain control and Active titration of continuous sedation Active and frequent reassessment of respiratory status and oxygen requirements and Invasive ventilator management, reassessment, and titration Active and frequent monitoring of intake/output and volumen status Transfusion of blood products Empiric broad coverage antibiotics Cosigned by Ina Russo MD at 07/03/2019 9:32 AM HOME SALES SERVICE PROFESSIONAL SALES SERVICE PROFESSIONAL SALES SERVICE PROFESSIONAL * Ina Russo MD - 06/29/2019 9:16 AM CSTAssociated Order(s): Arterial Line Insertion Post-Procedure Diagnose(s): Hypotension due to drugs Arterial Line Insertion Date/Time: 06/29/2019 9:17 AM Performed by: Denis Copeland MD Authorized by: Denis Copeland MD [place] Protocol: RN Notified of Procedure: yes Informed consent: Unable to obtain due to emergent status Patient's stated name/ matches armband: Patient unable to verbalize - armband matched to name and within medical record Consent form signed, dated, timed; matches correct patient, intended procedure and site: No consentform due to emergent status Imaging: N/a Lab/Diag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 hand ROM: Painless pROM of shoulder, elbow, wrist, and hand Vascular: fingers WWP, BCR <2sec -Left Upper Extremity Skin: Skin grossly intact Appearance: No Obvious Deformity -ecchymosis and swelling Palpation: No crepitus or tenderness w/ palpation of clavicle, humerus, forearm, or hand ROM: Painless pROM of shoulder, elbow, wrist, and hand Vascular: fingers WWP, BCR <2sec -Right Lower Extremity Skin: Skin grossly intact Appearance: Obvious deformity +ecchymosis and swelling Palpation: Crepitus appreciated over the R medal mal ROM: Nornal ROM Vascular: toes WWP, and BCR<2sec -Left Lower Extremity Skin: [id number] open wound over anteromedial tibia w/ bone sticking out of ski Appearance: No Obvious Deformity +ecchymosis and swelling Vascular: toes WWP, and BCR<2sec Lab/Radiology/Diagnostic Review: Laboratory review: Recent Results (from the past 24 hour(s)) CBC with auto differential Collection Time: 06/28/19 5:02 PM Result Value Ref Range WBC 6.7 3.8 - 9.9 K/cumm Hgb 9.0 (L) 11.9 - 15.5 g/dL Hct 24.2 (L) 35.6 - 45.5 % Plt 195 150 - 400 K/cumm MPV 11.1 9.1 - 12.3 fL RBC 2.57 (L) 3.90 - 5.20 M/cumm MCV 94.2 81.3 - 96.4 fL MCH 35.0 (H) 27.1 - 33.3 pg MCHC 37.2 (H) 32.3 - 35.7 g/dL RDW CV 26.7 (H) 11.1 - 14.9 % RDW SD 69.5 (H) 35.7 - 48.1 fL NRBC abs 0.04 (H) 0.00 - 0.01 K/cumm Comprehensive metabolic panel Collection Time: 06/28/19 5:02 PM Result Value Ref Range Sodium 141 135 - 145 mmol/L Potassium, pl 6.9 (Critical) 3.3 - 4.9 mmol/L Chloride 103 97 - 110 mmol/L CO2 29 22 - 32 mmol/L Anion gap 9 2 - 15 mmol/L BUN 38 (H) 8 - 25 mg/dL Creatinine 1.50 (H) 0.60 - 1.10 mg/dL Glucose 211 (H) 70 - 199 mg/dL Calcium 8.8 8.5 - 10.3 mg/dL Bilirubin, total 0.2 0.1 - 1.2 mg/dL Protein, pl 6.2 (L) 6.5 - 8.5 g/dL Albumin 3.6 3.5 - 5.0 g/dL Alk phos 77 40 - 130 Units/L ALT 41 7 - 45 Units/L AST 43 10 - 45 Units/L Type and screen Collection Time: 06/28/19 5:02 PM Result Value Ref Range Triston, indirect Negative Protime-INR Collection Time: 06/28/19 5:02 PM Result Value Ref Range PT 12.1 8.6 - 13.0 sec INR 1.1 0.8 - 1.2 aPTT Collection Time: 06/28/19 5:02 PM Result Value Ref Range aPTT 25 25 - 37 sec VerifyNow aspirin Collection Time: 06/28/19 5:02 PM Result Value Ref Range VerifyNow aspirin 609 ARU Differential, auto Collection Time: 06/28/19 5:02 PM Result Value Ref Range Neutrophil abs 3.0 1.7 - 6.5 K/cumm Imm gran abs 0.2 (H) 0.0 - 0.1 K/cumm Lymphocyte abs 3.1 0.8 - 3.3 K/cumm Monocyte abs 0.3 0.2 - 0.8 K/cumm Eosinophil abs 0.1 0.0 - 0.5 K/cumm Basophil abs 0.0 0.0 - 0.1 K/cumm Neutrophil pct 44.6 % Imm gran pct 2.5 % Lymphocyte pct 46.5 % Monocyte pct 5.1 % Eosinophil pct 0.9 % Basophil pct 0.4 % Critical Result Callback Chemistry Collection Time: 06/28/19 5:02 PM Result Value Ref Range Date Notified [id number] Time Notified 1815 TestName Potassium Called/Read Back Mago BEJARANO Credentials RN Called By Katelynn Hanley Creatine kinase (CK), total Collection Time: 06/28/19 5:02 PM Result Value Ref Range CK 81 30 - 200 Units/L Ethanol Collection Time: 06/28/19 5:02 PM Result Value Ref Range Ethanol <10 <=10 mg/dL POCT glucose Collection Time: 06/28/19 5:18 PM Result Value Ref Range Glucose, POC 161 70 - 199 mg/dL POCT lactate Collection Time: 06/28/19 5:23 PM Result Value Ref Range Lactate POC i-STAT 1.5 0.7 - 2.2 mmol/L POCT creatinine Collection Time: 06/28/19 5:27 PM Result Value Ref Range Creatinine POC 1.4 (H) 0.6 - 1.1 mg/dL Blood gas, venous Collection Time: 06/28/19 5:35 PM Result Value Ref Range pH, Venous 7.27 (L) 7.32 - 7.43 PCO2, Venous 63 (H) 40 - 50 mmHg PO2, Venous 30 mmHg HCO3 Venous, Calculated 30 20 - 30 mmol/L BE, venous 1 mmol/L Thrombocyte inhibited fibrinogen (FIBTEM) Collection Time: 06/28/19 5:35 PM Result Value Ref Range Maximum Clot Firm-Fibrinogen 12 9 - 29 mm Extrensic thromboelastometry (EXTEM) Collection Time: 06/28/19 5:35 PM Result Value Ref Range Clotting Time-Extrinsic 81 (H) 42 - 60 sec Clot Formation Time-Extrinsic 145 (H) 45 - 131 sec Angle-Extrinsic 62 (L) 65 - 83 Degree Max Clot Firmness-Extrinsic 51 (L) 53 - 75 mm Lysis 30-Extrinsic 100 85 - 100 % Urinalysis reflex to microscopic and culture Urine, indwelling catheter Collection Time: 06/28/19 6:54 PM Result Value Ref Range Color, ur Yellow Yellow Clarity, ur Clear Clear Specific gravity, ur 1.013 1.010 - 1.025 pH, urine 6 Protein, ur ql 1+ (A) Negative Glucose, ur ql Negative Negative Ketones, ur Negative Negative Bilirubin, ur Negative Negative Blood, ur Negative Negative Urobilinogen, ur <2.0 <2.0 mg/dL Nitrite, ur Negative Negative Leukocyte esterase, ur 1+ (A) Negative UA reflex comment Reflex to microscopic UA will be performed. Drugs of Abuse Screen, Urine with Reflex Confirmation Collection Time: 06/28/19 6:54 PM Result Value Ref Range Amphetamine, ur Not Detected CutOff 500ng/mL Barbiturates, ur Detected (A) CutOff 200ng/mL Benzodiazepines, ur Not Detected CutOff 100ng/mL Cannabinoids, ur Not Detected CutOff 50 ng/mL Cocaine, ur Not Detected CutOff 150ng/mL Fentanyl, Ur Detected (A) Cutoff 1 ng/mL Methadone, ur Not Detected CutOff 300ng/mL Opiates, ur Detected (A) CutOff 300ng/mL Oxycodone, ur Not Detected CutOff 100ng/mL Phencyclidine, ur Not Detected CutOff 25 ng/mL Urine Creatinine 42 mg/dL Blood gas, arterial Collection Time: 06/28/19 6:54 PM Result Value Ref Range pH, Art POC 7.45 7.35 - 7.45 PCO2, Arterial 39 35 - 45 mmHg PO2, Arterial 192 (H) 83 - 108 mmHg HCO3 Art (Calculated) 28 20 - 30 mmol/L BE, art 3 mmol/L O2 Sat Art (Measured) 99 (H) 90 - 95 % Potassium, whole blood Collection Time: 06/28/19 6:54 PM Result Value Ref Range Potassium, bld 5.6 (H) 3.3 - 4.9 mmol/L Urinalysis, microscopic only Collection Time: 06/28/19 6:54 PM Result Value Ref Range WBC, ur 6-10 (A) 0 - 5 /HPF RBC, ur 0-2 0 - 2 /HPF Hyaline casts, ur 11-20 (A) 0 - 10 /LPF Culture Reflex Comment Reflex conditions for urine culture (WBC >10) not met. POCT hCG, urine Collection Time: 06/28/19 7:23 PM Result Value Ref Range HCG, ur, POC Negative Lot Number [id number] QC Backgroud Clear Acceptable QC Control Line Acceptable POCT glucose Collection Time: 06/28/19 7:31 PM Result Value Ref Range Glucose, POC 176 70 - 199 mg/dL Radiology Review: Xray: L T3 Open Periprosthetic tibia/fibula fx, R medial mal fracture. Radiology interpretation below Imaging review: Xr Knee Left 1 Or 2 Views Result Date: 06/28/2019 1. Open comminuted periprosthetic fracture of the proximal left tibia 2. Open comminuted fracture of the proximal left fibula 3. Mildly displaced intra- articular right medial malleolus fracture 4. Noacute pelvic fracture. Dictated by: Luh Moffett M.D. Xr Tibia Fibula Left 2 Views Result Date: 06/28/2019 1. Open comminuted periprosthetic fracture of the proximal left tibia 2. Open comminuted fracture of the proximal left fibula 3. Mildly displaced intra- articular right medial malleolus fracture 4. Noacute pelvic fracture. Dictated by: Luh Moffett M.D. Xr Tibia Fibula Right 2 Views Result Date: 06/28/2019 1. Open comminuted periprosthetic fracture of the proximal left tibia 2. Open comminuted fracture of the proximal left fibula 3. Mildly displaced intra- articular right medial malleolus fracture 4. Noacute pelvic fracture. Dictated by: Luh Moffett M.D. Xr Ankle Left 3 Or More Views Result Date: 06/28/2019 1. Open comminuted periprosthetic fracture of the proximal left tibia 2. Open comminuted fracture of the proximal left fibula 3. Mildly displaced intra- articular right medial malleolus fracture 4. Noacute pelvic fracture. Dictated by: Luh Moffett M.D. Xr Ankle Right 3 Or More Views Result Date: 06/28/2019 1. Open comminuted periprosthetic fracture of the proximal left tibia 2. Open comminuted fracture of the proximal left fibula 3. Mildly displaced intra- articular right medial malleolus fracture 4. Noacute pelvic fracture. Dictated by: Luh A Zuhair, M.D. Cta Lower Extremity Left Result Date: 06/28/2019 1. Left lower extremity: Three-vessel runoff. 2. Non-opacification of a left peroneal artery proximal segment with distal reconstitution is favored to represent focal vasospasm/stenosis secondary to extrinsic arterial compression from the surrounding muscular edema. No evidence of arterial injury. 3. Markedly comminuted, open, angulated, and displaced periprosthetic fracture of the left proximal tibia. 4. Comminuted, angulated, and displaced fracture of the left proximal fibula. 5. Marked muscular intensity adjacent edema of the distal left lower extremity. Dictated by: Mikhail Beyer Xr Chest 1 Vw Portable Result Date: 06/28/2019 1st is made to same day chest CT. There is an endotracheal tube which terminates 1.3 cm above the jesús. A gastric tube projects below the left hemidiaphragm, extending at least to the body of the stomach. Lung volumes are decreased with bibasilar atelectasis. There are right upper lung predominant opacities correlate with areas of groundglass opacity seen on CT and may represent asymmetric pulmonary edema. There is no pleural effusion or pneumothorax. Cardiomediastinal contours are within normal limits accounting for portable technique and low lung volumes. Dictated by: Luh Moffett M.D. Xr Femur Left 2 Or More Views Result Date: 06/28/2019 1. Open comminuted periprosthetic fracture of the proximal left tibia 2. Open comminuted fracture of the proximal left fibula 3. Mildly displaced intra- articular right medial malleolus fracture 4. Noacute pelvic fracture. Dictated by: Luh Moffett M.D. Ct Chest Abdomen Pelvis W Contrast Result Date: 06/28/2019 1. No acute intra-abdominal traumatic injury. 2. Scattered, biapical groundglass opacities with septal line thickening may represent mild pulmonary edema. 3. Mild bibasilar atelectasis. Dictated by: Mikhail Beyer Xr Pelvis 1 Or 2 Views Result Date: 06/28/2019 1. Open comminuted periprosthetic fracture of the proximal left tibia 2. Open comminuted fracture of the proximal left fibula 3. Mildly displaced intra- articular right medial malleolus fracture 4. Noacute pelvic fracture. Dictated by: Luh A Zuhair, M.D. Ct Head And Cervical Spine Wo Contrast Result Date: 06/28/2019 No acute intracranial abnormality, such as hemorrhage No evidence of acute fracture in the cervicalspine. Dictated by: Adithya Murphy M.D. Clinical Images: None Procedure: Closed Reduction and Splinting of Injured Extremity: 20 Sheets of 5in x 30in plaster, Webril, NURY wraps. Patient tolerated the procedure well, there were no complications or concerns. Short leg splint on R leg and Long leg splint on R leg Assessment: Celestina Ewing is a 68 y.o. female: L T3 Open Periprosthetic tibia/fibula fx, R medial mal fracture. Plan: - Admit to General Surgery-GTS - Please don't discharge or send up to the floor before speaking with Ortho to ensure the workup iscomplete - Plan: Operative management - Pain Control - Elevate injured extremity to reduce swelling and aid in pain reduction - Weight bearing: NWB LLE - Keep splint clean/dry/intact - Antibiotics: None - DVT ppx: Please hold all chemical anticoagulation unless otherwise instructed, SCDs only - Diet: NPO until further notice - Further imaging: Post reduction xray of R ankle 3 views. - Laboratory workup: CBC, BMP, PT/INR, PTT, UA, T&S, Cross for 2 Units, EKG, CXR - Will discuss with Ortho Trauma Team. Thank you for the consult. - Please call ortho team if patient develops any concerning changes to their exam It was a pleasure being part of Celestina Ewing care team here at [facility]/ [facility] Orthopaedics ?? During normal business hours - If you know the resident's name on the appropriate orthopaedic surgery team, please use [employer] to page resident directly. ?? If you have questions overnight or can't reach the appropriate resident, please call the Orthopaedic Surgery Consult Pager [phone] to have your questions answered or be directed to the correct Orthopaedic Surgery resident. ?? Please take the time to first check 1. The Attending Surgeon who did last Surgery 2. What Operation that was done. 3. What Ortho team that is taking care of the patient (Trauma, Hand, Recon, Oncology, Spine, Pediatrics, Foot and Ankle, or Shoulder and Elbow) 4. If unable to reach the resident onthe team via [employer] call the consult pager for assistance. Please understand the consult resident might be performing procedures in the ED and some delays can be expected. We appreciateall your patience. Frederick Albarado MD Orthopaedic Surgery PGY- 1 [facility] in [place] Cosigned by Mary Polk MD at 06/29/2019 5:16 AM HOME SALES SERVICE PROFESSIONAL SALES SERVICE PROFESSIONAL SALES SERVICE PROFESSIONAL Associated attestation - Mary Polk MD - 06/29/2019 5:16 AM HOME SALES SERVICE PROFESSIONAL I personally saw and examined the patient as an inpatient on 06/29/2019. I have reviewed the imagingwhich shows open tibia. I have read the resident???s note and agree with the findings and plan by Sebastian Albarado. Mary Polk MD 06/29/2019, 5:16 AM * Gloria Bishop MD - 06/28/2019 4:59 PM CST [facility] Trauma Surgery History and Physical Date of Evaluation: 06/28/19 Sex: female Date of : 1950 Trauma Level 1 Physician requesting consult: Mago Brian with the emergency department has asked thatwe see Celestina Ewing for evaluation following traumatic injury. Method of transport: Ambulance Transported: from Scene History of Injury/Accident, Subjective: 68 y.o. F fall from standing w/ open farzana-prosthetic tib/fib fx w/ hypotension and AMS upon arrivalto ED, intubated in bay, MTP activated. Tourniquet up upon Trauma evaluation, DP palpable. Patient initially obtunded, then arousable but distressed/unable to participate in conversation. Allergies: Allergies Allergen Reactions ??? Iodine Unknown ??? Latex Unknown ??? Other Unknown seafood ??? Sulfa (Sulfonamide Antibiotics) Unknown ??? Valium [Diazepam] Unknown Medications: No current facility-administered medications on file prior to encounter. Current Outpatient Medications on File Prior to Encounter Medication Sig Dispense Refill ??? albuterol HFA (PROVENTIL HFA,VENTOLIN HFA,PROAIR HFA) 90 mcg/actuation inhaler Inhale 2 puffs every 4 (four) hours as needed for shortness of breath. Indications: Asthma Attack ??? amLODIPine (NORVASC) 10 mg tablet Take 10 mg by mouth daily. Indications: high blood pressure ??? atorvastatin (LIPITOR) 40 mg tablet Take 40 mg by mouth daily. Indications: excessive fat in the blood ??? baclofen (LIORESAL) 10 mg tablet Take 10 mg by mouth 3 (three) times a day as needed for musclespasms. Indications: muscle spasms caused by a spinal disease ??? cetirizine (ZyrTEC) 10 mg tablet Take 10 mg by mouth daily. Indications: Seasonal Runny Nose ??? cholecalciferol (cholecalciferol) 400 unit capsule Take 400 Units by mouth daily. Indications: Vitamin D deficiency ??? cloNIDine (CATAPRES) 0.2 mg tablet Take 0.2 mg by mouth 2 (two) times a day. Indications: high blood pressure ??? cyclobenzaprine (FLEXERIL) 5 mg tablet Take 5 mg by mouth every 6 (six) hours as needed for muscle spasms. Indications: muscle spasm ??? dicyclomine (BENTYL) 10 mg capsule Take 10 mg by mouth 3 (three) times a day. Indications: irritable colon ??? diphenhydrAMINE (BENADRYL) 25 mg capsule Take 25 mg by mouth every 8 (eight) hours as needed for itching. Indications: itching ??? docusate sodium (COLACE) 100 mg capsule Take 100 mg by mouth daily. Indications: constipation ??? estradiol (ESTRACE) 0.5 mg tablet Take 0.5 mg by mouth daily. Indications: hormone replacement ??? famciclovir (FAMVIR) 250 mg tablet Take 250 mg by mouth 2 (two) times a day. Indications: Other(complete free text reason below), herpes ??? fluticasone propionate (FLOVENT HFA) 110 mcg/actuation inhaler Inhale 2 puffs daily. Indications: Controller Medication for Asthma ??? furosemide (LASIX) 40 mg tablet Take 40 mg by mouth 2 (two) times a day. Indications: visible water retention ??? gabapentin (NEURONTIN) 400 mg capsule Take 400 mg by mouth daily. pt takes 800 mg at 2PM and 10PM Indications: Neuropathic Pain ??? hydrALAZINE (APRESOLINE) 50 mg tablet Take 50 mg by mouth 3 (three) times a day. Indications: high blood pressure ??? HYDROcodone-acetaminophen (NORCO) 7.5-325 mg per tablet Take 1 tablet by mouth every 8 (eight) hours as needed for pain. Indications: pain ??? meloxicam (MOBIC) 15 mg tablet Take 15 mg by mouth daily. Indications: joint damage causing pain and loss of function ??? metoprolol (LOPRESSOR) 100 mg tablet Take 100 mg by mouth 2 (two) times a day. Indications: high blood pressure ??? olmesartan (BENICAR) 40 mg tablet Take 40 mg by mouth daily. Indications: high blood pressure ??? pantoprazole DR (PROTONIX) 40 mg EC tablet Take 40 mg by mouth daily. Indications: Stress UlcerProphylaxis ??? polyethylene glycol (MIRALAX) 17 gram/dose powder Take 17 g by mouth daily. Indications: emptying of the bowel ??? primidone (MYSOLINE) 50 mg tablet Take 50 mg by mouth 2 (two) times a day. Indications: Essential Tremor ??? vitamin E (AQUASOL E) 400 unit capsule Take 800 Units by mouth daily. Indications: deficiency of vitamin E ??? zolpidem (AMBIEN) 10 mg tablet Take 10 mg by mouth nightly as needed for sleep. Indications: Difficulty Falling Asleep Immunizations: Immunization History Administered Date(s) Administered ??? Tdap 06/28/2019 Past Medical History: Patient unable to give hx, but per chart review has HTN, likely CHF, COPD Surgical History: Unable to obtain 2/2 patient AMS, but has well healed incision over L knee w/ TKAprosthesis visible on imaging. Social: Unable to obtain 2/2 AMS Social History Socioeconomic History ??? Marital status: Single Spouse name: Not on file ??? Number of children: Not on file ??? Years of education: Not on file ??? Highest education level: Not on file Occupational History ??? Not on file Social Needs ??? Financial resource strain: Not on file ??? Food insecurity: Worry: Not on file Inability: Not on file ??? Transportation needs: Medical: Not on file Non-medical: Not on file Tobacco Use ??? Smoking status: Not on file Substance and Sexual Activity ??? Alcohol use: Not on file ??? Drug use: Not on file ??? Sexual activity: Not on file Lifestyle ??? Physical activity: Days per week: Not on file Minutes per session: Not on file ??? Stress: Not on file Relationships ??? Social connections: Talks on phone: Not on file Gets together: Not on file Attends yazidi service: Not on file Active member of club or organization: Not on file Attends meetings of clubs or organizations: Not on file Relationship status: Not on file ??? Intimate partner violence: Fear of current or ex partner: Not on file Emotionally abused: Not on file Physically abused: Not on file Forced sexual activity: Not on file Other Topics Concern ??? Not on file Social History Narrative ??? Not on file Family history: Unable to obtain 2/2 AMS. SURVEY Primary Assessment Uncontrolled hemorrhage: Yes Hemorrhage: RLE Airway: Patent Eye Opening: None Best Verbal Response: None Best Motor Response: None [place] Coma Scale Score: 3 Cardiac Rhythm: Normal sinus rhythm L Pupil Size (mm): 3 R Pupil Size (mm): 3 L Pupil Reaction: Brisk R Pupil Reaction: Brisk Warming Devices: Warm Blankets, Warming Gown Secondary Assessment Head: Injury Contusion: back of head TM Left: Clear TM Right: Clear Face: No injury noted Neck: No injury noted C-spine step off: No Chest right: No injury noted Chest left: No injury noted Breath Sounds: Normal Breath Sounds Abdomen/Pelvis/Perineum injury : No injury noted Spine/Posterior surfaces: No injury noted Extremities: Injury Site: LLE LLE inspection: Deformity Resuscitation Phase & Emergency Treatments Pt received emergent intubation & MTP Trauma Team: Attending: Zana Franklin Pool: Gloria Bishop REVIEW OF SYSTEMS Not obtainable due to patient being intubated Vitals Temp: 36.2 ??C (97.2 ??F) Pulse: 96 Resp: 24 BP: 148/74 SpO2: 100 % O2 Del Method: Endotracheal tube ETCO2 (mmHg): 37 mmHg Physical Exam Constitutional: She is intubated HENT: Head: Normocephalic and atraumatic. Right Ear: External ear normal. Left Ear: External ear normal. Nose: Nose normal. Mouth/Throat: Oropharynx is clear and moist. Eyes: Pupils are equal, round, and reactive to light. EOM are normal. Neck: Normal range of motion. No tracheal deviation present. No thyromegaly present. No palpable bony step offs over the entire palpated spine. Cardiovascular: Normal rate and regular rhythm. Pulmonary/Chest: Effort normal and breath sounds normal. Abdominal: Soft. She exhibits no distension. Genitourinary: Genitourinary Comments: No injuries in the perineum, rectal tone poor, no blood. Musculoskeletal: LLE w/ open tib fib fx w/ active venous ooze Palpable pedal pulses. Neurological: Sedated. Skin: Skin is warm and dry. She is not diaphoretic. SECONDARY DATA Data Review: Lab Results Component Value Date WBC 6.7 06/28/2019 HGB 9.0 (L) 06/28/2019 HCT 24.2 (L) 06/28/2019 MCV 94.2 06/28/2019 LABPLAT 195 06/28/2019 Lab Results Component Value Date GLUCOSE 267 (H) 06/28/2019 CALCIUM 8.8 06/28/2019 SODIUM 141 06/28/2019 POTASSIUM 6.9 (Critical) 06/28/2019 CO2 29 06/28/2019 CHLORIDE 103 06/28/2019 BUNSER 38 (H) 06/28/2019 CREATININE 1.4 (H) 06/28/2019 Recent Labs Lab Units 06/28/19 1702 APTT sec 25 PROTIME (PT) sec 12.1 INR 1.1 Recent Results (from the past 36 hour(s)) CBC with auto differential Collection Time: 06/28/19 5:02 PM Result Value Ref Range WBC 6.7 3.8 - 9.9 K/cumm Hgb 9.0 (L) 11.9 - 15.5 g/dL Hct 24.2 (L) 35.6 - 45.5 % Plt 195 150 - 400 K/cumm MPV 11.1 9.1 - 12.3 fL RBC 2.57 (L) 3.90 - 5.20 M/cumm MCV 94.2 81.3 - 96.4 fL MCH 35.0 (H) 27.1 - 33.3 pg MCHC 37.2 (H) 32.3 - 35.7 g/dL RDW CV 26.7 (H) 11.1 - 14.9 % RDW SD 69.5 (H) 35.7 - 48.1 fL NRBC abs 0.04 (H) 0.00 - 0.01 K/cumm Comprehensive metabolic panel Collection Time: 06/28/19 5:02 PM Result Value Ref Range Sodium 141 135 - 145 mmol/L Potassium, pl 6.9 (Critical) 3.3 - 4.9 mmol/L Chloride 103 97 - 110 mmol/L CO2 29 22 - 32 mmol/L Anion gap 9 2 - 15 mmol/L BUN 38 (H) 8 - 25 mg/dL Creatinine 1.50 (H) 0.60 - 1.10 mg/dL Glucose 211 (H) 70 - 199 mg/dL Calcium 8.8 8.5 - 10.3 mg/dL Bilirubin, total 0.2 0.1 - 1.2 mg/dL Protein, pl 6.2 (L) 6.5 - 8.5 g/dL Albumin 3.6 3.5 - 5.0 g/dL Alk phos 77 40 - 130 Units/L ALT 41 7 - 45 Units/L AST 43 10 - 45 Units/L Type and screen Collection Time: 06/28/19 5:02 PM Result Value Ref Range Triston, indirect Negative Protime-INR Collection Time: 06/28/19 5:02 PM Result Value Ref Range PT 12.1 8.6 - 13.0 sec INR 1.1 0.8 - 1.2 aPTT Collection Time: 06/28/19 5:02 PM Result Value Ref Range aPTT 25 25 - 37 sec Ver[employer]Now aspirin Collection Time: 06/28/19 5:02 PM Result Value Ref Range VerifyNow aspirin 609 ARU Differential, auto Collection Time: 06/28/19 5:02 PM Result Value Ref Range Neutrophil abs 3.0 1.7 - 6.5 K/cumm Imm gran abs 0.2 (H) 0.0 - 0.1 K/cumm Lymphocyte abs 3.1 0.8 - 3.3 K/cumm Monocyte abs 0.3 0.2 - 0.8 K/cumm Eosinophil abs 0.1 0.0 - 0.5 K/cumm Basophil abs 0.0 0.0 - 0.1 K/cumm Neutrophil pct 44.6 % Imm gran pct 2.5 % Lymphocyte pct 46.5 % Monocyte pct 5.1 % Eosinophil pct 0.9 % Basophil pct 0.4 % Critical Result Callback Chemistry Collection Time: 06/28/19 5:02 PM Result Value Ref Range Date Notified [id number] Time Notified 1815 TestName Potassium Called/Read Back Mago RN Credentials RN Called By Katelynn Hanley Creatine kinase (CK), total Collection Time: 06/28/19 5:02 PM Result Value Ref Range CK 81 30 - 200 Units/L Ethanol Collection Time: 06/28/19 5:02 PM Result Value Ref Range Ethanol <10 <=10 mg/dL Troponin I Collection Time: 06/28/19 5:02 PM Result Value Ref Range Troponin I <0.03 0.00 - 0.03 ng/mL POCT glucose Collection Time: 06/28/19 5:18 PM Result Value Ref Range Glucose, POC 161 70 - 199 mg/dL POCT lactate Collection Time: 06/28/19 5:23 PM Result Value Ref Range Lactate POC i-STAT 1.5 0.7 - 2.2 mmol/L POCT creatinine Collection Time: 06/28/19 5:27 PM Result Value Ref Range Creatinine POC 1.4 (H) 0.6 - 1.1 mg/dL Blood gas, venous Collection Time: 06/28/19 5:35 PM Result Value Ref Range pH, Venous 7.27 (L) 7.32 - 7.43 PCO2, Venous 63 (H) 40 - 50 mmHg PO2, Venous 30 mmHg HCO3 Venous, Calculated 30 20 - 30 mmol/L BE, venous 1 mmol/L Thrombocyte inhibited fibrinogen (FIBTEM) Collection Time: 06/28/19 5:35 PM Result Value Ref Range Maximum Clot Firm-Fibrinogen 12 9 - 29 mm Extrensic thromboelastometry (EXTEM) Collection Time: 06/28/19 5:35 PM Result Value Ref Range Clotting Time-Extrinsic 81 (H) 42 - 60 sec Clot Formation Time-Extrinsic 145 (H) 45 - 131 sec Angle-Extrinsic 62 (L) 65 - 83 Degree Max Clot Firmness-Extrinsic 51 (L) 53 - 75 mm Lysis 30-Extrinsic 100 85 - 100 % Urinalysis reflex to microscopic and culture Urine, indwelling catheter Collection Time: 06/28/19 6:54 PM Result Value Ref Range Color, ur Yellow Yellow Clarity, ur Clear Clear Specific gravity, ur 1.013 1.010 - 1.025 pH, urine 6 Protein, ur ql 1+ (A) Negative Glucose, ur ql Negative Negative Ketones, ur Negative Negative Bilirubin, ur Negative Negative Blood, ur Negative Negative Urobilinogen, ur <2.0 <2.0 mg/dL Nitrite, ur Negative Negative Leukocyte esterase, ur 1+ (A) Negative UA reflex comment Reflex to microscopic UA will be performed. Drugs of Abuse Screen, Urine with Reflex Confirmation Collection Time: 06/28/19 6:54 PM Result Value Ref Range Amphetamine, ur Not Detected CutOff 500ng/mL Barbiturates, ur Detected (A) CutOff 200ng/mL Benzodiazepines, ur Not Detected CutOff 100ng/mL Cannabinoids, ur Not Detected CutOff 50 ng/mL Cocaine, ur Not Detected CutOff 150ng/mL Fentanyl, Ur Detected (A) Cutoff 1 ng/mL Methadone, ur Not Detected CutOff 300ng/mL Opiates, ur Detected (A) CutOff 300ng/mL Oxycodone, ur Not Detected CutOff 100ng/mL Phencyclidine, ur Not Detected CutOff 25 ng/mL Urine Creatinine 42 mg/dL Blood gas, arterial Collection Time: 06/28/19 6:54 PM Result Value Ref Range pH, Art POC 7.45 7.35 - 7.45 PCO2, Arterial 39 35 - 45 mmHg PO2, Arterial 192 (H) 83 - 108 mmHg HCO3 Art (Calculated) 28 20 - 30 mmol/L BE, art 3 mmol/L O2 Sat Art (Measured) 99 (H) 90 - 95 % Potassium, whole blood Collection Time: 06/28/19 6:54 PM Result Value Ref Range Potassium, bld 5.6 (H) 3.3 - 4.9 mmol/L Urinalysis, microscopic only Collection Time: 06/28/19 6:54 PM Result Value Ref Range WBC, ur 6-10 (A) 0 - 5 /HPF RBC, ur 0-2 0 - 2 /HPF Hyaline casts, ur 11-20 (A) 0 - 10 /LPF Culture Reflex Comment Reflex conditions for urine culture (WBC >10) not met. POCT hCG, urine Collection Time: 06/28/19 7:23 PM Result Value Ref Range HCG, ur, POC Negative Lot Number [id number] QC Backgroud Clear Acceptable QC Control Line Acceptable POCT glucose Collection Time: 06/28/19 7:31 PM Result Value Ref Range Glucose, POC 176 70 - 199 mg/dL POCT glucose Collection Time: 06/28/19 8:26 PM Result Value Ref Range Glucose, POC 267 (H) 70 - 199 mg/dL Imaging: Xr Knee Left 1 Or 2 Views Result Date: 06/28/2019 1. Open comminuted periprosthetic fracture of the proximal left tibia 2. Open comminuted fracture of the proximal left fibula 3. Mildly displaced intra- articular right medial malleolus fracture 4. Noacute pelvic fracture. Dictated by: Luh Moffett M.D. Xr Tibia Fibula Left 2 Views Result Date: 06/28/2019 1. Open comminuted periprosthetic fracture of the proximal left tibia 2. Open comminuted fracture of the proximal left fibula 3. Mildly displaced intra- articular right medial malleolus fracture 4. Noacute pelvic fracture. Dictated by: Luh Moffett M.D. Xr Tibia Fibula Right 2 Views Result Date: 06/28/2019 1. Open comminuted periprosthetic fracture of the proximal left tibia 2. Open comminuted fracture of the proximal left fibula 3. Mildly displaced intra- articular right medial malleolus fracture 4. Noacute pelvic fracture. Dictated by: Luh Moffett M.D. Xr Ankle Left 3 Or More Views Result Date: 06/28/2019 1. Open comminuted periprosthetic fracture of the proximal left tibia 2. Open comminuted fracture of the proximal left fibula 3. Mildly displaced intra- articular right medial malleolus fracture 4. Noacute pelvic fracture. Dictated by: Luh Moffett M.D. Xr Ankle Right 3 Or More Views Result Date: 06/28/2019 1. Open comminuted periprosthetic fracture of the proximal left tibia 2. Open comminuted fracture of the proximal left fibula 3. Mildly displaced intra- articular right medial malleolus fracture 4. Noacute pelvic fracture. Dictated by: Luh Moffett M.D. Cta Lower Extremity Left Result Date: 06/28/2019 1. Left lower extremity: Three-vessel runoff. 2. Non-opacification of a left peroneal artery proximal segment with distal reconstitution is favored to represent focal vasospasm/stenosis secondary to extrinsic arterial compression from the surrounding muscular edema. No evidence of arterial injury. 3. Markedly comminuted, open, angulated, and displaced periprosthetic fracture of the left proximal tibia. 4. Comminuted, angulated, and displaced fracture of the left proximal fibula. 5. Marked muscular intensity adjacent edema of the distal left lower extremity. Dictated by: Mikhail Beyer Xr Chest 1 Vw Portable Result Date: 06/28/2019 1st is made to same day chest CT. There is an endotracheal tube which terminates 1.3 cm above the jesús. A gastric tube projects below the left hemidiaphragm, extending at least to the body of the stomach. Lung volumes are decreased with bibasilar atelectasis. There are right upper lung predominant opacities correlate with areas of groundglass opacity seen on CT and may represent asymmetric pulmonary edema. There is no pleural effusion or pneumothorax. Cardiomediastinal contours are within normal limits accounting for portable technique and low lung volumes. Dictated by: Luh Moffett M.D. Xr Femur Left 2 Or More Views Result Date: 06/28/2019 1. Open comminuted periprosthetic fracture of the proximal left tibia 2. Open comminuted fracture of the proximal left fibula 3. Mildly displaced intra- articular right medial malleolus fracture 4. Noacute pelvic fracture. Dictated by: Luh Moffett M.D. Ct Chest Abdomen Pelvis W Contrast Result Date: 06/28/2019 1. No acute intra-abdominal traumatic injury. 2. Scattered, biapical groundglass opacities with septal line thickening may represent mild pulmonary edema. 3. Mild bibasilar atelectasis. Dictated by: Mikhail Beyer Xr Pelvis 1 Or 2 Views Result Date: 06/28/2019 1. Open comminuted periprosthetic fracture of the proximal left tibia 2. Open comminuted fracture of the proximal left fibula 3. Mildly displaced intra- articular right medial malleolus fracture 4. Noacute pelvic fracture. Dictated by: Luh Moffett M.D. Ct Head And Cervical Spine Wo Contrast Result Date: 06/28/2019 No acute intracranial abnormality, such as hemorrhage No evidence of acute fracture in the cervicalspine. Dictated by: Adithya Murphy M.D. Assessment & Plan: 68 y.o. F fall from standing w/ open farzana-prosthetic tib/fib fx w/ hypotension and AMS upon arrivalto ED, intubated in bay, MTP activated, CThead/c-spine/c/a/p CTA showed isolated LLE injury w/ no sign of vascular injury in preliminary read. K 6.9, Cr 1.5, has received appropriate acute managementof hyperkalemia, continued assessment and treatment ongoing. Plan: OR w/ ortho for external fixation, SICU, management of electrolyte disturbances and underlying cardiopulmonary comorbidities. Gloria Bishop Trauma Surgery June 28, 2019 9:24 PM Plan and care discussed with attending: Zana Franklin Cosigned by Zana Franklin MD at 06/29/2019 3:53 AM HOME SALES SERVICE PROFESSIONAL SALES SERVICE PROFESSIONAL SALES SERVICE PROFESSIONAL Associated attestation - Zana Franklin MD - 06/29/2019 3:53 AM HOME SALES SERVICE PROFESSIONAL I have seen and examined the patient on 06/28/19. I agree with the findings and plan of care as documented in the resident's/fellow's note. Seen and examined at ~1705 (~4 minutes after trauma page went off). Open farzana-prosthetic tib/fib fx. Hypotensive. Intubated. Admit to ICU. documented in this encounter Nursing Notes * Mary Lemus RN - 07/06/2019 4:23 PM CST Patient discharged to [facility]. Patient agreed with discharge instructions. SALES SERVICE PROFESSIONAL * Mary Lemus RN - 07/06/2019 3:50 PM CST Report [facility] Bas[facility] . SALES SERVICE PROFESSIONAL SALES SERVICE PROFESSIONAL * Lizette Dutton RN - 06/29/2019 12:00 AM CST Arrives from OR sedated, intubated 7.5 ETT. Sedated, RASS -5. PIV x 2, R wrist clotted, L wrist infiltrated. IVF, insulin, phenylephrine and propofol gtts changed to R groin cordis. Pt is s/p Wash out and ORIF L tib/fib fx, washout of R med malleous fx R ankle. Nury wrap/wound vac to LLE, split castto RLE. DP pulses palpable bilateral. Temp 35.9. No family here at this time. SW for [facility] onboard. SALES SERVICE PROFESSIONAL documented in this encounter ED Notes * Mago Brian MD - 06/28/2019 5:57 PM CST HPI Chief Complaint Patient presents with ??? Fall Celestina Ewing is a 68 y.o. female with an unknown past medical history presenting by EMS for an open fracture of the left tib/ fib following a fall from standing. History limited by patient's fatigue and disorientation. She states that she was attempting to exit her vehicle this morning with herwalker when she fell from standing. She denies hitting her head and denies loss of consciousness but is unable to recall the entire incident. She is endorsing pain in her head, in her neck, and in her left leg. PMH: unable to obtain due to patient's mental status PSH: unable to obtain due to patient's mental status Soc: unable to obtain due to patient's mental status FHx: unable to obtain due to patient's mental status Patient History There are no active problems to display for this patient. No past medical history on file. No past surgical history on file. No family history on file. Social History Tobacco Use ??? Smoking status: Not on file Substance Use Topics ??? Alcohol use: Not on file ??? Drug use: Not on file Social History Patient does not qualify to have social determinant information on file (likely too young). Social History Narrative ??? Not on file Review of Systems Review of Systems Unable to perform ROS: Mental status change Physical Exam ED Triage Vitals [06/28/19 1653] Temp Pulse Resp BP SpO2 -- 99 16 (!) 149/116 100 % Temp src Heart Rate Source Patient Position BP Location FiO2 (%) -- -- -- -- -- Physical Exam Constitutional: Comments: Patient sleepy on initial exam. Then became unresponsive with hypotension. HENT: Head: Normocephalic and atraumatic. Mouth/Throat: Mouth: Mucous membranes are moist. Pharynx: Oropharynx is clear. Eyes: Extraocular Movements: Extraocular movements intact. Pupils: Pupils are equal, round, and reactive to light. Neck: Musculoskeletal: Muscular tenderness present. Comments: Immobilized in c-collar on arrival to the ED. Cardiovascular: Rate and Rhythm: Normal rate and regular rhythm. Pulses: Normal pulses. Heart sounds: No murmur. Pulmonary: Effort: Pulmonary effort is normal. Breath sounds: Normal breath sounds. Comments: Equal bilateral breath sounds Abdominal: Tenderness: There is no tenderness. There is no guarding. Comments: Obese abdomen. Nontender to palpation Musculoskeletal: Comments: Open tib/fib fracture with small pulsatile bleeding, significant venous oozing. Exposed bone. Distal pulses 2+ DP. Unable to test sensation and motor function 2/2 patient's mental status. Small hematoma over the lateral. 2+ DP pulses. Tenderness over the midline cervical, thoracic, and lumbar spine. Skin: General: Skin is warm and dry. Capillary Refill: Capillary refill takes less than 2 seconds. Coloration: Skin is pale. Neurological: Mental Status: She is disoriented. MDM MDM Number of Diagnoses or Management Options Type III open displaced comminuted fracture of shaft of left tibia, initial encounter: Diagnosis management comments: This is a 68 y.o. female with an unknown medical history presenting to the emergency department with open fracture of the left tib/ fib and altered mental status after a fall from standing today. On arrival the patient's ABCs were intact, she was sleepy and confused with a GCS of 14. While attempting to obtain hemostasis of her LLE wound she abruptly became unresponsive. A tourniquet was applied to the left thigh. She was given 2L of trauma blood and 0.4 of narcan. She became responsive again however was unable to tolerate examination and washout of her LLE. Shewas sedated and intubated for pain control and expected clinical course. History and exam most concerning for hypovolemic shock versus intracranial hemorrhage. Differentialdiagnosis also includes hypoglycemia, intraabdominal hemorrhage, pelvis fracture, urosepsis, pneumonia, electrolyte disturbacne. Low suspicion at this time for acute cerebral herniation. Plan for CT head, c-spine, chest, abdomen and pelvis. Plain films of the LLE and CTA of the LLE. Anticipate admission. Attending Summary of Care ED Course as of Jun 29 2151 Time: 06/28 1823 Comment: HgB 9.0 but this is after/ during 2 units whole blood By: Forrest Begum MD Time: 06/28 1832 Value: Potassium, pl(!!): 6.9 Comment: Given 2g calcium chloride, insulin, glucose and albuterol. By: Mago Brian MD Time: 06/28 1842 Comment: Signed out to SICU By: Yoli Monzon MD Time: 06/28 1908 Value: CT Head and Cervical Spine WO Contrast Comment: IMPRESSION: No acute intracranial abnormality, such as hemorrhage No evidence of acute fracture in the cervicalspine. By: Mago Brian MD Time: 06/28 1913 Value: Potassium, bld(!): 5.6 Comment: S/p albuterol. By: Mago Brian MD Time: 06/28 1950 Value: XR Pelvis 1 or 2 Views Comment: IMPRESSION: 1. Open comminuted periprosthetic fracture of the proximal left tibia 2. Open comminuted fracture of the proximal left fibula 3. Mildly displaced intra-articular right medial malleolus fracture 4. No acute pelvic fracture. By: Mago Brian MD Type III open displaced comminuted fracture of shaft of left tibia, initial encounter Mago Brian MD Resident 06/29/197 Cosigned by Forrest Begum MD at 06/29/2019 11:06 PM HOME SALES SERVICE PROFESSIONAL SALES SERVICE PROFESSIONAL SALES SERVICE PROFESSIONAL Associated attestation - Forrest Begum MD - 06/29/2019 11:06 PM HOME SALES SERVICE PROFESSIONAL I have seen and examined the patient on 06/28/2019 . I agree with the findings and plan of care as documented in the resident's note. documented in this encounter Miscellaneous Notes * Plan of Care - Deepika Zaman RN - 07/06/2019 1:15 AM CST Problem: Lack of Knowledge: Goal: Ability to state ways to decrease the risk of falls will improve Outcome: Progressing Problem: Safety: Goal: Will remain free from falls Outcome: Progressing Goal: Will remain free from injury from falls Outcome: Progressing Goal: Will remain free from falls and injury in home environment Outcome: Progressing Problem: Activity: Goal: Mobility will improve Outcome: Progressing Problem: Lack of Knowledge: Goal: Understanding of ways to prevent future skin breakdown will improve Outcome: Progressing Goal: Ability to identify appropriate dietary choices will improve Outcome: Progressing Problem: Nutritional: Goal: Dietary intake will improve Outcome: Progressing Goal: Ability to maintain a balanced intake and output will improve Outcome: Progressing Problem: Skin Integrity: Goal: Risk for impaired skin integrity will decrease Outcome: Progressing Goal: Ability to demonstrate warm and dry skin will improve Outcome: Progressing Goal: Circulation will improve to fullest extent possible Outcome: Progressing Problem: Health Behavior: Goal: Understanding of discharge needs will improve Outcome: Progressing Problem: Lack of Knowledge: Goal: [...] safely transfer will improve Outcome: Progressing Problem: Lack of Knowledge: Goal: Ability to develop a pain control plan will improve Outcome: Progressing Goal: Ability to identify pain intensity on a pain scale and rate it consistently will improve Outcome: Progressing Goal: Ability to notify healthcare provider of pain before it becomes unmanageable or unbearable will improve Outcome: Progressing Problem: Medication: Goal: Satisfaction with pain management regimen will improve Outcome: Progressing Problem: Sensory: Goal: Ability to identify factors that increase the pain will improve Outcome: Progressing Goal: Pain level will decrease Outcome: Progressing Goals: Clinical Goals for the Shift: pain control, sleep Summary: Pt progressing towards all set goals. Further education given on the medications she is receiving and on her pain management regimen. SALES SERVICE PROFESSIONAL * Plan of Care - Glory Brenner RN - 07/05/2019 5:01 PM CST Goals: Clinical Goals for the Shift: pain control, sleep SummaryPt states adequate pain control SALES SERVICE PROFESSIONAL * Plan of Care - Radha Beltre OT - 07/05/2019 3:41 PM CST Problem: Grooming Goal: STG - Patient will complete grooming Description With supervision sitting EOB unsupported Outcome: Progressing Problem: Transfers Goal: STG - Patient to transfer to and from sit to supine Description With Min A Outcome: Completed SALES SERVICE PROFESSIONAL * Plan of Care - Mily Rivera MSW - 07/05/2019 1:16 PM CST Per MD rounds, patient is medically stable for discharge. JAYNE spoke with [employer] [place] ([phone]) who reports patient's request to transfer to a longterm facility has been denied. Ref#[id number]. Peer to Peer #[phone]. Information provided to Trauma [facility] who are agreeable to Peer to Peer. Patient and Regla, admissions liaison @ [facility] updated and agreeable to plan. SW to follow. Afternoon Update: Per [facility], patients [id number] has been denied. JAYNE and LULU met with the patient bedside to discuss discharge plan. Patient reports she has no support in the home and her hold worker has recently quit. JAYNE and LULU notified medical team of discharge barriers. JAYNE sent [facility]IN referrals to the following facilities to determine if they are able to accept patient under [place] benefits: [facility], [facility], [facility], [facility]. SW to follow. Mily Rivera LMSW [phone] SALES SERVICE PROFESSIONAL SALES SERVICE PROFESSIONAL * Plan of Care - Mary Ann Barrett RN - 07/05/2019 11:51 AM CST Per DCAM report.... patient medically ready for discharge. Social work following for placement assistance upon discharge per therapy recommendations. Case management will continue to follow. SALES SERVICE PROFESSIONAL * Plan of Care - Deepika Zmaan RN - 07/05/2019 3:59 AM CST Problem: Lack of Knowledge: Goal: Ability to state ways to decrease the risk of falls will improve Outcome: Progressing Problem: Safety: Goal: Will remain free from falls Outcome: Progressing Goal: Will remain free from injury from falls Outcome: Progressing Goal: Will remain free from falls and injury in home environment Outcome: Progressing Problem: Activity: Goal: Mobility will improve Outcome: Progressing Problem: Lack of Knowledge: Goal: Understanding of ways to prevent future skin breakdown will improve Outcome: Progressing Goal: Ability to identify appropriate dietary choices will improve Outcome: Progressing Problem: Nutritional: Goal: Dietary intake will improve Outcome: Progressing Goal: Ability to maintain a balanced intake and output will improve Outcome: Progressing Problem: Skin Integrity: Goal: Risk for impaired skin integrity will decrease Outcome: Progressing Goal: Ability to demonstrate warm and dry skin will improve Outcome: Progressing Goal: Circulation will improve to fullest extent possible Outcome: Progressing Problem: Health Behavior: Goal: Understanding of discharge needs will improve Outcome: Progressing Problem: Lack of Knowledge: Goal: [...] safely transfer will improve Outcome: Progressing Problem: Lack of Knowledge: Goal: Ability to develop a pain control plan will improve Outcome: Progressing Goal: Ability to identify pain intensity on a pain scale and rate it consistently will improve Outcome: Progressing Goal: Ability to notify healthcare provider of pain before it becomes unmanageable or unbearable will improve Outcome: Progressing Problem: Medication: Goal: Satisfaction with pain management regimen will improve Outcome: Progressing Problem: Sensory: Goal: Ability to identify factors that increase the pain will improve Outcome: Progressing Goal: Pain level will decrease Outcome: Progressing Goals: Clinical Goals for the Shift: pain control, sleep Summary: Pt progressing towards all set goals. Further education given on the medications she is receiving and importance of out of bed activity. SALES SERVICE PROFESSIONAL * Plan of Care - Adithya Mckeon, PT - 07/04/2019 4:34 PM CST Problem: Transfers Goal: STG - Patient to transfer to and from sit to supine Description sup Outcome: Progressing Note: Goal updated, previous goal achieved Goal: STG - Transfer from bed to chair Description Mod assist with sliding board Outcome: Progressing Note: Goal initiated Problem: PT Misc Goal: STG - Misc 1 Description Pt will maintain NWB B LE precautions with all mobility. Outcome: Progressing Problem: Transfers Goal: STG - Patient will roll Description Mod A to R and L. Outcome: Adequate for Discharge Problem: Balance Goal: STG - Maintains static sitting balance with upper extremity support Description Min A x 3 minutes Outcome: Completed Adithya Mckeon, DPT, GCS, 07/04/19, 4:34 PM SALES SERVICE PROFESSIONAL * Plan of Care - Mily Rivera MSW - 07/04/2019 1:33 PM CST Per MD rounds, patient is medically stable for discharge. Patient has been accepted @ [facility]. Insurance authorization pending. SW to follow. Mily Rivera LMSW [phone] SALES SERVICE PROFESSIONAL * Plan of Care - Ethel Sears RN - 07/04/2019 12:21 PM CST Problem: Lack of Knowledge: Goal: Ability to state ways to decrease the risk of falls will improve Outcome: Progressing Problem: Safety: Goal: Will remain free from falls Outcome: Progressing Goal: Will remain free from injury from falls Outcome: Progressing Goal: Will remain free from falls and injury in home environment Outcome: Progressing Problem: Activity: Goal: Mobility will improve Outcome: Progressing Problem: Medication: Goal: Satisfaction with pain management regimen will improve Outcome: Progressing Clinical goals for shift: Pain control, I/O, turn, possible discharge Summary: Patient progressing towards goals. Patient resting comfortably at this time with baseline complaints of pain and discomfort, relieved by PRN pain medications. Weight bearing status continued, wound vac in place. Patient awaiting placement and insurance authorization SALES SERVICE PROFESSIONAL * Plan of Care - Brooke Avalos RN - 07/03/2019 10:22 PM CST Goals: Pain Control; NV checks Summary: Plan of care reviewed with patient; patient verbalizes understanding the plan. Problem: Lack of Knowledge: Goal: Ability to state ways to decrease the risk of falls will improve Outcome: Progressing Problem: Safety: Goal: Will remain free from falls Outcome: Progressing Goal: Will remain free from injury from falls Outcome: Progressing Goal: Will remain free from falls and injury in home environment Outcome: Progressing Problem: Activity: Goal: Mobility will improve Outcome: Not Progressing Problem: Lack of Knowledge: Goal: Understanding of ways to prevent future skin breakdown will improve Outcome: Progressing Goal: Ability to identify appropriate dietary choices will improve Outcome: Progressing Problem: Nutritional: Goal: Dietary intake will improve Outcome: Progressing Goal: Ability to maintain a balanced intake and output will improve Outcome: Progressing Problem: Skin Integrity: Goal: Risk for impaired skin integrity will decrease Outcome: Progressing Goal: Ability to demonstrate warm and dry skin will improve Outcome: Progressing Goal: Circulation will improve to fullest extent possible Outcome: Progressing Problem: Health Behavior: Goal: Understanding of discharge needs will improve Outcome: Progressing Problem: Lack of Knowledge: Goal: Knowledge of the prescribed therapeutic regimen will improve Outcome: Progressing Problem: Activity: Goal: Ability to ambulate will improve Outcome: Not Progressing Goal: Muscle strength will improve Outcome: [...] safely transfer will improve Outcome: Progressing Problem: Lack of Knowledge: Goal: Ability to develop a pain control plan will improve Outcome: Progressing Goal: Ability to identify pain intensity on a pain scale and rate it consistently will improve Outcome: Progressing Goal: Ability to notify healthcare provider of pain before it becomes unmanageable or unbearable will improve Outcome: Progressing Problem: Medication: Goal: Satisfaction with pain management regimen will improve Outcome: Progressing Problem: Sensory: Goal: Ability to identify factors that increase the pain will improve Outcome: Progressing Goal: Pain level will decrease Outcome: Progressing SALES SERVICE PROFESSIONAL * Plan of Care - Mily Rivera MSW - 07/03/2019 2:28 PM CST JAYNE spoke with Cara admissions liaison @ [facility], who reports they are not able to accept patient at this time due to lack of bed availability. SW with Johnny admissions liaison @ [facility] who reports they are able to accept patient and will submit for insurance auth on this date. Patient updated and agreeable to plan. SW to follow. Mily Rivera [facility] [place] [phone] SALES SERVICE PROFESSIONAL * Plan of Care - Stanford Cardoza RN - 07/03/2019 10:53 AM CST Goals: Clinical Goals for the Shift: Wean sedation, BEST Daria. OOB next 24 hours. remains NWB LE. address nutrtlitional status. pain control. Re-orientation Problem: Lack of Knowledge: Goal: Ability to state ways to decrease the risk of falls will improve Outcome: Progressing Problem: Safety: Goal: Will remain free from falls Outcome: Progressing Goal: Will remain free from injury from falls Outcome: Progressing Goal: Will remain free from falls and injury in home environment Outcome: Progressing Problem: Lack of Knowledge: Goal: Understanding of ways to prevent future skin breakdown will improve Outcome: Progressing Goal: Ability to identify appropriate dietary choices will improve Outcome: Progressing Problem: Nutritional: Goal: Dietary intake will improve Outcome: Progressing Goal: Ability to maintain a balanced intake and output will improve Outcome: Progressing Problem: Skin Integrity: Goal: Risk for impaired skin integrity will decrease Outcome: Progressing Goal: Ability to demonstrate warm and dry skin will improve Outcome: Progressing Goal: Circulation will improve to fullest extent possible Outcome: Progressing Problem: Health Behavior: Goal: Understanding of discharge needs will improve Outcome: Progressing Problem: Lack of Knowledge: Goal: Knowledge of the prescribed therapeutic regimen will improve Outcome: Progressing Problem: Activity: Goal: Muscle strength will improve Outcome: Progressing Goal: Range of joint motion will improve Outcome: Progressing Problem: Physical Regulation: Goal: Ability to avoid complications of mobility impairment will improve Outcome: Progressing Problem: Safety: Goal: Ability to safely and independently change position in bed will improve Outcome: Progressing Problem: Lack of Knowledge: Goal: Ability to develop a pain control plan will improve Outcome: Progressing Goal: Ability to identify pain intensity on a pain scale and rate it consistently will improve Outcome: Progressing Goal: Ability to notify healthcare provider of pain before it becomes unmanageable or unbearable will improve Outcome: Progressing Problem: Medication: Goal: Satisfaction with pain management regimen will improve Outcome: Progressing Problem: Sensory: Goal: Ability to identify factors that increase the pain will improve Outcome: Progressing Goal: Pain level will decrease Outcome: Progressing Problem: Activity: Goal: Mobility will improve Outcome: Not Progressing Problem: Activity: Goal: Ability to ambulate will improve Outcome: Not Progressing Problem: Safety: Goal: Ability to appropriately use an adaptive device for ambulation will improve Outcome: Not Progressing Goal: Ability to safely transfer will improve Outcome: Not Progressing Problem: Lack of Knowledge: Goal: Knowledge of restraints will improve Description INTERVENTIONS: 1. Educate patient/caregiver on restraints Outcome: Completed Summary: SALES SERVICE PROFESSIONAL * Plan of Care - Mily Rivera MSW - 07/03/2019 10:36 AM CST Per MD rounds, patient is medically stable for discharge. Social work met with the patient at bedside to discuss d/c planning options. Social work informed the patient that d/c recommendations indicate patient would benefit from a longterm facility at discharge. Social work provided information on the rehabilitation process and provided information on SNF rehab. Social work provided information on [facility] and emphasized the importance of continuity of care. Social work discussed d/c options to meet the patient's needs and provided a printed list of facilities for review. Patient is agreeable to plan and prefers placement at [facility] or [facility]. [facility] referrals sent. SW to follow. Mily Raulprem RN FIRST ASSISTANT [phone] SALES SERVICE PROFESSIONAL * [facility] Note - Mily Rivera MSW - 07/03/2019 10:27 AM CST Patient Information: OT Eval and Treat Last 72 Hours OT Evaluation Row Name 07/02/19 9430 Chart Reviewed Yes -TP Session Type Evaluation -TP OT Received On 07/02/19 -TP Safe Environment Arm Band Checked;Notified RN;Call Light within Reach;Patient found in Supine;Overbed Table within Reach -TP Subjective Agreeable to Therapy -TP Family/Caregiver Present No -TP Precautions Fall risk -TP Weight Bearing Restrictions Yes -TP RLE Weight Bearing NWB -TP LLE Weight Bearing NWB -TP Braces/Orthoses Hinge brace LLE -TP Type of Home Apartment -TP Home Layout One level -TP Home Access Stairs to enter without rails -TP Entrance Stairs-Rails None -TP Entrance Stairs-Number of Steps 1 -TP Bathroom Shower/Tub Tub/shower unit -TP Bathroom Equipment Shower chair;Toilet raiser;Grab bars in shower/tub -TP Home Mobility Equipment Single point cane;Wheeled walker -TP Additional Comments Patient reports use of WW for all mobility at baseline -TP Level of [place] Needs assistance with ADLs;Independent functional transfers;Independent with ambulation;Needs assistance with homemaking -TP Lives With Alone -TP Receives Help From vault attendant 5 days/wk X4 hours/day -TP Driving No -TP Fall within the last 6 months Yes -TP Fall within the last 6 months comment Patient reports 5 falls related to syncope and BLE weakness -TP Grooming: Where assessed Chair -TP Grooming: Level of assistance Contact Guard Assist supervision task, NT standing 2/2 BLE NWB -TP Grooming: Assistance with Increased time to complete;Safety setup of ADL items, patient sits at baseline -TP LE Dressing: Where assessed Chair -TP LE Dressing: Level of assistance Dependent -TP LE Dressing: Assistance with Increased time to complete;Supervision/safety;Don/doff R sock;Don/doffL sock;Thread RLE into pants;Thread LLE into pants;Thread RLE into underwear;Thread LLE into underwe ar;Pull up over hips;Fasteners setup of ADL items -TP Toileting: Where assessed Supine, bed -TP Toileting: Level of assistance Maximum Assist Max A task, NT standing -TP Toileting: Assistance with Increased time to complete;Clothing management up;Clothing management down;Anterior;Posterior safety, setup of ADL items -TP Toilet Transfer From Bed -TP Toilet Transfer Type To -TP Toilet Transfer to Standard bedside commode simulated with chair -TP Toilet Transfer: Equipment Mechanical Device -TP Toilet Transfers Dependent -TP Toilet Transfers Comments Use of uriel lift -TP Pain Assessment 0-10 -RM (r) TP (t) Pain Score 7 -TP Pain Location Leg -TP Pain Orientation Right;Left -TP Pain Interventions RN Notified RN Mery -TP Overall Cognitive Status WFL -TP Arousal/Alertness Alert;Appropriate responses to stimuli -TP Attention Span Appears intact -TP Memory Appears intact -TP Current communication Appears Intact -TP Orientation Oriented X4 (person, place, time, situation) -TP Following Commands Follows all commands and directions without difficulty -TP Safety Judgment Good awareness of safety precautions -TP Awareness of Errors Good awareness of errors made -TP Insight Fully aware of deficits -TP Problem Solving Able to problem solve independently -TP Compliance/Behavior Easy to engage -TP Perseveration Not present -TP Light Touch WFL -TP Serial Opposition WFL -TP Balance Yes -TP Static Sitting-Balance Support Bilateral upper extremity supported;Feet supported -TP Static Sitting-Sitting Surface Chair sitting supported -TP Static Sitting-Level of Assistance Close supervision -TP Bed Mobility Yes -TP Bed Mobility From 1 Supine;Rolling right -TP Bed Mobility Type 1 To and from -TP Bed Mobility to 1 Supine;Rolling left -TP Level of Assistance 1 Moderate Assist -TP Bed Mobility Comments 1 assist X2 to roll onto lift sling -TP RUE Assessment WFL -TP LUE Assessment WFL -TP Comments Discussed discharge recommendation to SNF, patient receptive and agreeable. -TP Problem List Decreased functional mobility;Decreased ADL independence;Decreased IADL independence -TP Barriers to Discharge Decreased caregiver support -TP Barrier Comments Patient reports availability of slot machine department floorperson assistance only -TP Plan Plan of care initiated;If this is the last note, consider this the discharge summary -TP OT Recommendation Residential Facility -TP OT Frequency 2-3x/wk -TP Treatment/Interventions ADL/IADL retraining;Bed mobility;Functional activity;Functional transfer training;Strengthening;Therapeutic activity;Therapeutic exercise;Transfer training -TP OT - Next Appointment 07/05/19 -TP OT - OK to Discharge No -TP OT Evaluation Complete Yes -TP User Astudillo (r) = Recorded By, (t) = Taken By, (c) = Cosigned By Initials Name Effective Dates RM Mary Lemus RN 06/26/19 - TP Sherwin Toscano, OT 06/26/19 - OT Treatment No documentation. OT Notes (Notes from 07/01/19 through 07/03/19) No notes of this type exist for this encounter. , PT Eval and Treat Last 72 Hours PT Evaluation Row Name 07/02/19 0950 06/30/19 0736 06/29/19 0729 Chart Reviewed Yes -GB (r) DK (t) -- -- Session Type Evaluation -GB (r) DK (t) -- -- Subjective Agreeable to Therapy -GB (r) DK (t) -- -- PT Missed Visit Reason -- Procedure/testing/appointment OR today for I&D and ORIF tibia -JT Procedure/testing/appointment;MD/RN Hold Patient may be going to OR today or tomorrow. Hold per RN. -JT Family/Caregiver Present No -GB (r) DK (t) -- -- Physical Therapy-Patient Goal Pt wishes to get stronger -GB (r) DK (t) -- -- Precautions Fall risk -GB (r) DK (t) -- -- Weight Bearing Restrictions Yes -GB (r) DK (t) -- -- RLE Weight Bearing NWB -GB (r) DK (t) -- -- LLE Weight Bearing NWB -GB (r) DK (t) -- -- Braces/Orthoses Hinge brace on the L LE -GB -- -- Precaution Comments Pt educated and verbalized understadning of NWB B LE precautions. -GB (r) DK (t) -- -- Type of Home Apartment -GB (r) DK (t) -- -- Home Layout Multi-level -GB (r) DK (t) -- -- Home Access Stairs to enter with rails;Elevator -GB (r) DK (t) -- -- Entrance Stairs-Rails None -GB (r) DK (t) -- -- Entrance Stairs-Number of Steps 1 -GB (r) DK (t) -- -- Home Mobility Equipment Wheeled walker -GB (r) DK (t) -- -- Additional Comments Pt used WW for all mobility. -GB (r) DK (t) -- -- Level of [place] Independent with ADLs;Independent functional transfers;Independent with ambulation -GB (r) DK (t) -- -- Lives With Alone -GB (r) DK (t) -- -- Receives Help From vault attendant PT care -GB (r) DK (t) -- -- Fall within the last 6 months Yes -GB (r) DK (t) -- -- Fall within the last 6 months comment 5 from syncope -GB (r) DK (t) -- -- Prior Function Comments Pt Mod I with home mobility. -GB (r) DK (t) -- -- Activity Tolerance Comments Yasmin- hard -GB (r) DK (t) -- -- Pain Interventions RN Notified DARCI Ordonez provided meds at start of sess -GB -- -- Arousal/Alertness Alert -GB (r) DK (t) -- -- Attention Span Appears intact -GB (r) DK (t) -- -- Orientation Oriented X4 (person, place, time, situation) -GB (r) DK (t) -- -- Following Commands Follows all commands and directions without difficulty -GB (r) DK (t) -- -- Light Touch WFL Sensation tested on B LE: toes and upper thighs. -GB (r) DK (t) -- -- Sensation Comments Unable to assess 2/2 to wrappings over B LE. -GB (r) DK (t) -- -- Balance Yes -GB (r) DK (t) -- -- Static Sitting-Balance Support Bilateral upper extremity supported;Feet unsupported bed rail -GB (r) DK (t) -- -- Static Sitting-Sitting Surface Bed EOB -GB (r) DK (t) -- -- Static Sitting-Level of Assistance Moderate assistance x 2 people -GB -- -- Static Sitting-Comment/# of Minutes Mod x 2 people for balance, safety, force production, and maneuvering B LE to/from EOB. VC throughout for sequencing, hand placement, and upright posture. -GB -- -- Bed Mobility Yes -GB (r) DK (t) -- -- Bed Mobility From 1 Supine -DK (r) GB (c) -- -- Bed Mobility Type 1 To and from -DK (r) GB (c) -- -- Bed Mobility to 1 Edge of bed -DK (r) GB (c) -- -- Level of Assistance 1 Maximum Assist;Moderate verbal cues x 3 people -DK (r) GB (c) -- -- Bed Mobility Comments 1 Max A x 3 people for balance, safety, maneuvering B LE to/from EOB, and trunk ascent/descent. Verbal/tactile cues for upright posture, sequencing, and hand placement. -DK (r) GB (c) -- -- Bed Mobility From 2 Supine -DK (r) GB (c) -- -- Bed Mobility Type 2 To and from -DK (r) GB (c) -- -- Bed Mobility to 2 Rolling right;Rolling left -DK (r) GB (c) -- -- Level of Assistance 2 Maximum Assist;Minimal verbal cues -DK (r) GB (c) -- -- Bed Mobility Comments 2 Max A for safety, force production, and sequencing. VC throughout for hand placement and maintaining NWB precautions. -DK (r) GB (c) -- -- Transfer No NT 2/2 to pain and NWB B LE. -DK (r) GB (c) -- -- Ambulation No -DK (r) GB (c) -- -- RUE Assessment WFL -DK (r) GB (c) -- -- LUE Assessment WFL -DK (r) GB (c) -- -- RLE Assessment X NT 2/2 to pain and NWB B LE -DK (r) GB (c) -- -- LLE Assessment X NT 2/2 to pain and NWB B LE -DK (r) GB (c) -- -- Equipment Use Comments no gait belt used due to no OOB mobility -DK (r) GB (c) -- -- Other PT Comments Pt required increased time 2/2 to pain and NWB B LE precautions. Increased time also required for assisting RN with bathroom hygiene during PT session. Max A and VC provided to rollpatient R and L. -DK (r) GB (c) -- -- How much difficulty does the patient have: Turning over in bed 2 -DK (r) GB (c) -- -- How much difficulty does the patient currently have: Sitting down and standing up from a chair witharms? 1 -DK (r) GB (c) -- -- How much difficulty does the patient have: Moving from lying on back to sitting on the side of the bed? 1 -DK (r) GB (c) -- -- How much difficulty does the patient have: Moving to and from a bed to a chair including wheelchair? 1 -DK (r) GB (c) -- -- How much help does the patient currently need: Walk in hospital room? 1 -DK (r) GB (c) -- -- How much help from another person does the patient currently need: Climbing 3-5 steps with a railing? 1 -DK (r) GB (c) -- -- Total Score (range 6-24) 7 -DK -- -- Score Interpretation 26.42 -DK (r) GB (c) -- -- Prognosis Fair -DK (r) GB (c) -- -- Problem List Decreased strength;Decreased range of motion;Decreased coordination;Decreased mobility;Impaired balance -DK (r) GB (c) -- -- Problem List Comments Pt's s/p irrigation and debridement of L tibia, ORIF L tibia, ORIF R ankle on06/30 from [facility] results in above listed activity deficits and impairments which prevent full participation in home and community mobility -DK (r) GB (c) -- -- Plan Plan of care initiated;If this is the last note, consider this the discharge summary -ALFRED (r) GB (c) -- -- PT Recommendation/Plan Residential Facility -DK (r) GB (c) -- -- PT Frequency 2-3x/wk -DK (cecille) ZHANG (anuja) -- -- Treatment/Interventions Balance Training;Bed mobility;Strengthening;Therapeutic activity;Therapeutic exercise;Functional activity;Functional transfer training - ALFRED (mila HOLCOMB (anuja) -- -- PT Evaluation Complete Yes -ALFRED man (r)) -- -- User Astudillo (r) = Recorded By, (t) = Taken By, (c) = Cosigned By Initials Name Effective Dates ALFRED Mckeon 06/26/19 - ZHANG Donato DPT 04/17/19 - SREE Ocampo, PT 04/17/19 - PT TREATMENT (last 168 hours) PT Treatment No documentation. PT Notes (Notes from 07/01/19 through 07/03/19) 07/02/2019 11:01 AM Progress Notes signed by Geraldine Donato DPT , Wound Info Only Patient Lines/Drains/Airways Status Active Wound / Pressure ulcer / Kumar / Negative Pressure Wound Wound 06/29/19 MASD (Moisture associated skin damage) Left Breast linear redness/excoriation under breast Date First Assessed 06/29/19 Site: Breast Time First Assessed 0000 Days: 4 Wound Type: MASD (Moisture associated skin damage) Location Orientation: Left Wound Description (Comments): linear redness/excoriation under breast Assessments 07/02/191999 Wound Status Healing Site Assessment [place];Clean;Dry;Intact Farzana-wound Assessment Color normal for ethnicity Margins Undefined edges Closure Open to air Drainage Amount None Dressing Moisture wicking Interventions Site care , Vitals Info Only Vital Signs 07/02 700 - 07/03 0659 07/03 700 - 07/03 1027 Most Recent Temp (??C) 36.7 - 37.1 37.3 37.3 (99.1) Pulse 96 - 111 98 - 107 98 Resp 16 - 22 18 18 SpO2 (%) 94 - 100 93 93 BP 126/51 - 153/57 126/60 126/60 MAP (mmHg) 74 - 81 80 , Oxygen Info Only Default Flowsheet Data (most recent) Endurance Tests No documentation. Default Flowsheet Data (last 48 hours) Oxygen Row Name 07/03/19 0855 07/03/19 0824 07/03/19 0744 07/03/19 0327 07/02/19 2310 Oxygen Therapy/Pulse Ox O2 Therapy Supplemental oxygen Supplemental oxygen Supplemental oxygen Supplemental oxygen Supplemental oxygen O2 Del Method Nasal cannula Nasal cannula Nasal cannula Nasal cannula Nasal cannula O2 Flow Rate (L/min) 2 L/min 2 L/min 2 L/min 2 L/min 2 L/min SpO2 -- 93 % -- 100 % 99 % Patient Activity At rest -- At rest -- -- Row Name 07/02/19 2057 07/02/19 1640 07/02/19 1439 07/02/19 1354 07/02/19 1029 Oxygen Therapy/Pulse Ox O2 Therapy Supplemental oxygen Supplemental oxygen -- -- Supplemental oxygen O2 Del Method Nasal cannula Nasal cannula -- -- Nasal cannula O2 Flow Rate (L/min) 2 L/min 2 L/min -- -- 2 L/min SpO2 98 % 96 % 97 % 96 % 96 % Row Name 07/02/19 0950 07/02/19 0759 07/02/19 0720 07/02/19 0300 07/01/19 2348 Oxygen Therapy/Pulse Ox O2 Therapy Supplemental oxygen Supplemental oxygen Supplemental oxygen Supplemental oxygen Supplemental oxygen O2 Del Method Nasal cannula Nasal cannula Nasal cannula Nasal cannula Nasal cannula O2 Flow Rate (L/min) 2 L/min 2 L/min 2 L/min 2 L/min 2 L/min SpO2 94 % 99 % -- 100 % 100 % Row Name 07/01/19 2121 07/01/19 1800 07/01/19 1700 07/01/19 1600 07/01/19 1500 Oxygen Therapy/Pulse Ox O2 Therapy -- Supplemental oxygen Supplemental oxygen Supplemental oxygen Supplemental oxygen O2 Del Method -- Nasal cannula Nasal cannula Nasal cannula Nasal cannula O2 Flow Rate (L/min) -- 2 L/min 2 L/min 3 L/min 3 L/min SpO2 96 % 97 % 99 % 100 % 100 % Patient Activity -- -- At rest At rest At rest Row Name 07/01/19 1400 07/01/19 1300 07/01/19 1200 07/01/19 1100 Oxygen Therapy/Pulse Ox O2 Therapy Supplemental oxygen Supplemental oxygen Supplemental oxygen -- O2 Del Method Nasal cannula Nasal cannula Nasal cannula -- O2 Flow Rate (L/min) 3 L/min 3 L/min 3 L/min -- SpO2 97 % 98 % 100 % 97 % Patient Activity At rest -- At rest -- SALES SERVICE PROFESSIONAL * Plan of Care - Deandra Bone MSW - 07/03/2019 10:09 AM CST SW would like to note patient transferred from [address] [place] [address] to [facility]. Floor SW notified of transfer. Deandra Bone [facility] [place] [facility] [phone] SALES SERVICE PROFESSIONAL * Plan of Care - Flower Mitchell RN - 07/02/2019 11:53 PM CST Problem: Lack of Knowledge: Goal: Ability to state ways to decrease the risk of falls will improve Outcome: Progressing Problem: Safety: Goal: Will remain free from falls Outcome: Progressing Goal: Will remain free from injury from falls Outcome: Progressing Goal: Will remain free from falls and injury in home environment Outcome: Progressing Problem: Activity: Goal: Mobility will improve Outcome: Progressing Problem: Lack of Knowledge: Goal: Understanding of ways to prevent future skin breakdown will improve Outcome: Progressing Goal: Ability to identify appropriate dietary choices will improve Outcome: Progressing Problem: Nutritional: Goal: Dietary intake will improve Outcome: Progressing Goal: Ability to maintain a balanced intake and output will improve Outcome: Progressing Problem: Skin Integrity: Goal: Risk for impaired skin integrity will decrease Outcome: Progressing Goal: Ability to demonstrate warm and dry skin will improve Outcome: Progressing Goal: Circulation will improve to fullest extent possible Outcome: Progressing Problem: Health Behavior: Goal: Understanding of discharge needs will improve Outcome: Progressing Problem: Lack of Knowledge: Goal: [...] safely transfer will improve Outcome: Progressing Problem: Lack of Knowledge: Goal: Ability to develop a pain control plan will improve Outcome: Progressing Goal: Ability to identify pain intensity on a pain scale and rate it consistently will improve Outcome: Progressing Goal: Ability to notify healthcare provider of pain before it becomes unmanageable or unbearable will improve Outcome: Progressing Problem: Medication: Goal: Satisfaction with pain management regimen will improve Outcome: Progressing Problem: Sensory: Goal: Ability to identify factors that increase the pain will improve Outcome: Progressing Goal: Pain level will decrease Outcome: Progressing Problem: Lack of Knowledge: Goal: Knowledge of restraints will improve Description INTERVENTIONS: 1. Educate patient/caregiver on restraints Outcome: Progressing Goals: Clinical Goals for the Shift: Wean sedation, BEST Daria. OOB next 24 hours. remains NWB LE. address nutrtlitional status. pain control. Re-orientation Summary: Pt educated on plan of care. Goal for pain control and sleep hygiene overnight. Plan to work with therapy tomorrow. SALES SERVICE PROFESSIONAL * Plan of Care - Arnoldo Morillo RN - 07/02/2019 2:42 PM CST Problem: Activity: Goal: Mobility will improve Outcome: Progressing Problem: Lack of Knowledge: Goal: Ability to identify appropriate dietary choices will improve Outcome: Progressing Problem: Nutritional: Goal: Dietary intake will improve Outcome: Progressing Goal: Ability to maintain a balanced intake and output will improve Outcome: Progressing Problem: Skin Integrity: Goal: Ability to demonstrate warm and dry skin will improve Outcome: Progressing Problem: Lack of Knowledge: Goal: Ability to state ways to decrease the risk of falls will improve Outcome: Not Progressing Problem: Safety: Goal: Will remain free from falls Outcome: Not Progressing Goal: Will remain free from injury from falls Outcome: Not Progressing Goal: Will remain free from falls and injury in home environment Outcome: Not Progressing Problem: Lack of Knowledge: Goal: Understanding of ways to prevent future skin breakdown will improve Outcome: Not Progressing Problem: Skin Integrity: Goal: Risk for impaired skin integrity will decrease Outcome: Not Progressing Goal: Circulation will improve to fullest extent possible Outcome: Not Progressing Problem: Health Behavior: Goal: Understanding of discharge needs will improve Outcome: Not Progressing Goals: Clinical Goals for the Shift: Wean sedation, BEST Daria. OOB next 24 hours. remains NWB LE. address nutrtlitional status. pain control. Re-orientation SALES SERVICE PROFESSIONAL * Plan of Care - Flower Mitchell RN - 07/02/2019 6:03 AM CST Problem: Lack of Knowledge: Goal: Ability to state ways to decrease the risk of falls will improve Outcome: Progressing Problem: Safety: Goal: Will remain free from falls Outcome: Progressing Goal: Will remain free from injury from falls Outcome: Progressing Goal: Will remain free from falls and injury in home environment Outcome: Progressing Problem: Activity: Goal: Mobility will improve Outcome: Progressing Problem: Lack of Knowledge: Goal: Understanding of ways to prevent future skin breakdown will improve Outcome: Progressing Goal: Ability to identify appropriate dietary choices will improve Outcome: Progressing Problem: Nutritional: Goal: Dietary intake will improve Outcome: Progressing Goal: Ability to maintain a balanced intake and output will improve Outcome: Progressing Problem: Skin Integrity: Goal: Risk for impaired skin integrity will decrease Outcome: Progressing Goal: Ability to demonstrate warm and dry skin will improve Outcome: Progressing Goal: Circulation will improve to fullest extent possible Outcome: Progressing Problem: Health Behavior: Goal: Understanding of discharge needs will improve Outcome: Progressing Problem: Lack of Knowledge: Goal: [...] safely transfer will improve Outcome: Progressing Problem: Lack of Knowledge: Goal: Ability to develop a pain control plan will improve Outcome: Progressing Goal: Ability to identify pain intensity on a pain scale and rate it consistently will improve Outcome: Progressing Goal: Ability to notify healthcare provider of pain before it becomes unmanageable or unbearable will improve Outcome: Progressing Problem: Medication: Goal: Satisfaction with pain management regimen will improve Outcome: Progressing Problem: Sensory: Goal: Ability to identify factors that increase the pain will improve Outcome: Progressing Goal: Pain level will decrease Outcome: Progressing Problem: Lack of Knowledge: Goal: Knowledge of restraints will improve Description INTERVENTIONS: 1. Educate patient/caregiver on restraints Outcome: Progressing Goals: Clinical Goals for the Shift: Wean sedation, BEST Daria. OOB next 24 hours. remains NWB LE. address nutrtlitional status. pain control. Re-orientation Summary: Pt educated on plan of care. Goal for pain control and sleep hygiene overnight. SALES SERVICE PROFESSIONAL * Plan of Care - Gumaro Holly RN - 07/01/2019 1:42 PM CST Goals: Clinical Goals for the Shift: Wean sedation, BEST Daria. OOB next 24 hours. remains NWB LE. address nutrtlitional status. pain control. Re-orientation Summary:Pain consult for better pain control. OOB to chair as tolerated. SALES SERVICE PROFESSIONAL * Plan of Care - Lizette Dutton RN - 06/30/2019 11:15 PM CST Problem: Lack of Knowledge: Goal: Ability to state ways to decrease the risk of falls will improve Outcome: Progressing Problem: Safety: Goal: Will remain free from falls Outcome: Progressing Goal: Will remain free from injury from falls Outcome: Progressing Goal: Will remain free from falls and injury in home environment Outcome: Progressing Problem: Activity: Goal: Mobility will improve Outcome: Progressing Problem: Lack of Knowledge: Goal: Understanding of ways to prevent future skin breakdown will improve Outcome: Progressing Goal: Ability to identify appropriate dietary choices will improve Outcome: Progressing Problem: Nutritional: Goal: Dietary intake will improve Outcome: Progressing Goal: Ability to maintain a balanced intake and output will improve Outcome: Progressing Problem: Skin Integrity: Goal: Risk for impaired skin integrity will decrease Outcome: Progressing Goal: Ability to demonstrate warm and dry skin will improve Outcome: Progressing Goal: Circulation will improve to fullest extent possible Outcome: Progressing Problem: Health Behavior: Goal: Understanding of discharge needs will improve Outcome: Progressing Problem: Lack of Knowledge: Goal: [...] safely transfer will improve Outcome: Progressing Problem: Lack of Knowledge: Goal: Ability to develop a pain control plan will improve Outcome: Progressing Goal: Ability to identify pain intensity on a pain scale and rate it consistently will improve Outcome: Progressing Goal: Ability to notify healthcare provider of pain before it becomes unmanageable or unbearable will improve Outcome: Progressing Problem: Medication: Goal: Satisfaction with pain management regimen will improve Outcome: Progressing Problem: Sensory: Goal: Ability to identify factors that increase the pain will improve Outcome: Progressing Goal: Pain level will decrease Outcome: Progressing Problem: Lack of Knowledge: Goal: Knowledge of restraints will improve Description INTERVENTIONS: 1. Educate patient/caregiver on restraints Outcome: Progressing Goals: Clinical Goals for the Shift: Wean sedation, BEST Daria. OOB next 24 hours. remains NWB LE. address nutrtlitional status. pain control. Re-orientation Summary: SALES SERVICE PROFESSIONAL * Plan of Care - Mary Siu RN - 06/30/2019 3:41 PM CST Problem: Safety: Goal: Will remain free from falls Outcome: Progressing Goal: Will remain free from injury from falls Outcome: Progressing Problem: Activity: Goal: Mobility will improve Outcome: Progressing Problem: Lack of Knowledge: Goal: Understanding of ways to prevent future skin breakdown will improve Outcome: Progressing Problem: Nutritional: Goal: Ability to maintain a balanced intake and output will improve Outcome: Progressing Problem: Skin Integrity: Goal: Risk for impaired skin integrity will decrease Outcome: Progressing Goal: Ability to demonstrate warm and dry skin will improve Outcome: Progressing Goal: Circulation will improve to fullest extent possible Outcome: Progressing Problem: Health Behavior: Goal: Understanding of discharge needs will improve Outcome: Progressing Problem: Lack of Knowledge: Goal: Knowledge of the prescribed therapeutic regimen will improve Outcome: Progressing Problem: Physical Regulation: Goal: Ability to avoid complications of mobility impairment will improve Outcome: Progressing Problem: Safety: Goal: Ability to safely and independently change position in bed will improve Outcome: Progressing Goal: Ability to safely transfer will improve Outcome: Progressing Problem: Lack of Knowledge: Goal: Ability to develop a pain control plan will improve Outcome: Progressing Goal: Ability to identify pain intensity on a pain scale and rate it consistently will improve Outcome: Progressing Goal: Ability to notify healthcare provider of pain before it becomes unmanageable or unbearable will improve Outcome: Progressing Problem: Medication: Goal: Satisfaction with pain management regimen will improve Outcome: Progressing Problem: Sensory: Goal: Ability to identify factors that increase the pain will improve Outcome: Progressing Goal: Pain level will decrease Outcome: Progressing Goals: Clinical Goals for the Shift: optimal ventilation and adequate pain control Summary: Goals achieved SALES SERVICE PROFESSIONAL * Op Note - Jacobo Shoemaker MD - 06/30/2019 1:36 PM CST OPERATIVE REPORT Date of Surgery: 06/30/2019 Attending Surgeon: Jacobo Shoemaker MD MSc ASSISTANTS: Surgeon(s) and Role: * Jacobo Shoemaker MD - Primary * Frederick Albarado MD - Resident - Assisting * Migel Edwards MD - Resident - Assisting * Jsoe Manuel Gruber MD - Fellow ANESTHESIA: General PREOPERATIVE DIAGNOSIS: 1. Left type 3A open tibia shaft fracture 2. Right medial malleolus fracture POSTOPERATIVE DIAGNOSIS: Same as above PROCEDURE: 1. Open reduction internal fixation of left type 3A open tibia shaft fracture 2. Open reduction internal fixation of right medial malleolus fracture 3. Excisional debridement of left open fracture site including excision of skin, subcutaneous tissue, and fascia 4. Complex layered wound closure of traumatic laceration measuring 40 cm IMPLANTS: 1. Synthes small fragment locking CLINICAL NOTE/INDICATIONS: This patient is a 68 y.o. female who sustained a left type 3A open tibia shaft fracture below a total knee stem and a right tibial plafond fracture while falling. We recommended repeat debridement, irrigation, open reduction and internal fixation of both fractures, and wound management as necessaryto decrease the risk of nonunion, malunion, and degenerative joint disease as well as infection. She and her family understands the risks and benefits, and wishes to proceed. Written consent was obtained. DESCRIPTION OF PROCEDURE: Celestina Ewing was brought to the preoperative area. The [...] All bony prominences were well padded. The right and left lower extremity were prepped and draped in the usual fashion. We began by evaluating the T shaped laceration which was partially closed over the open tibia fracture on the left. It measured approximately 40 cm in total length. It exposed the anterior compartment as well as the entire medial face of the tibia distal to the transverse portion of the T shaped laceration down to the distal 3rd of the tibia. We removed the provisional plate and excised the hematoma within the fracture site and cleansed any clot and debris away from the fracture confirming no foreign material or contaminated clot were left within the fracture site. All the muscle appeared to be viable in the anterior compartment and posterior deep and superficial compartments. Torn skin subc utaneous tissue and fascia was excised using a scalpel to achieve healthy appearing and bleeding edges. Once we completed our excisional debridement, the tibia shaft fracture was reduced into anatomic position using bone reduction forceps and a combination of a direct medial plate and a direct anterior plate were applied to achieve stable fixation of the tibia around the total knee arthroplasty. Once this was completed the wound was prescribed a chlorhexidine solution and copiously irrigated. The 40 cm traumatic laceration was then closed in a layered fashion using a combination of 1 Vicryl, 2-0 Monocryl, and 3-0 nylon at the skin. A negative pressure wound therapy dressing was then appliedto the closed laceration and seal confirmed. Next we turned our attention to the right side after repositioning limb on the elevating ramp. A curvilinear anteromedial incision was made through skin subcutaneous tissue and fascia. We identified and protected the greater saphenous vein and the saphenous nerve, and then exposed the fracture of the medial malleolus and and distal tibia metaphysis. We took care not to strip the superficial deltoid completely away from the fracture fragment and minimize the amount of periosteal stripping aroundthe metaphysis. The fracture was cleansed of clot and debris and then reduced into anatomic position using bone reduction forceps, and then a 1/3 tubular plate was applied as a buttress. The patient's bone quality was extremely poor and multiple cortical screws failed to maintain their purchase. Locking screws were applied to supplement the fixation. Final fluoroscopic and radiographic images were obtained and reviewed. The wound was pre-scrubbed with chlorhexidine solution and then copiously irrigated. The wound was then closed in layers. Xeroform, dry-sterile dressing, and a short-leg sugar-tong splint were applied. Patient was taken to the intensive care unit intubated in stable condition POSTOPERATIVE PLAN: 1. Non weight bearing, right and left lower extremity for 6 weeks 2. 24 hours of IV antibiotics 3. Removal of negative pressure wound therapy dressing on postoperative day 5 ESTIMATED BLOOD LOSS: Per Anesthesia INTRAOPERATIVE FLUIDS: Per Anesthesia SPONGE/INSTRUMENT/NEEDLE COUNTS: Correct CONDITION ON DISCHARGE: Stable COMPLICATIONS: None STATEMENT OF ATTENDING SURGEON'S PRESENCE: I am the attending surgeon. I was scrubbed and present for the critical portions of the case, including the approach, fracture reduction and application of all implants, as well as the excisional debridement and a layered closure of the traumatic laceration. For all other non-critical portions of the case, Dr. Jose Manuel Gruber was scrubbed and present. Please note that Dr. Jose Manuel Gruber's assistance was necessary because of the complexity of the case and lack of qualified senior resident availability. Specifically, his assistance was necessary to help perform the approach, align the fractures, and maintain alignment while implants were applied, as well as to assist with the debridement and the closure of the 40 cm traumatic laceration. Jacobo Shoemaker MD MSc SALES SERVICE PROFESSIONAL * Brief Op Note - Migel Edwards MD - 06/30/2019 1:36 PM CST Operative Progress Note Surgical Team: Surgeon(s) and Role: * Jacobo Shoemaker MD - Primary * Frederick Albarado MD - Resident - Assisting * Migel Edwards MD - Resident - Assisting * Jose Manuel Gruber MD - Fellow Anesthesiologist: Migel Hardy MD; Rui Mike MD TOOL PLANER SET UP OPERATOR: Sergei Larios [facility], TOOL PLANER SET UP OPERATOR Business Intelligence Etl Developer: Ryan Carranza RN Track Car Operator: Megan Eid, RT Business Intelligence Etl Developer Relief: Gumaro Hugo RN Scrub Relief: Hernando Henriquez RN Scrub: Pepe Fowler RN Business Intelligence Etl Developer Second: Gumaro Hugo RN DATE OF SURGERY : 06/30/2019 Preoperative Diagnosis: Pre-op Diagnosis * Type III open displaced comminuted fracture of shaft of left tibia, initial encounter [S82.252C] Postoperative Diagnosis: Post-op Diagnosis * Type III open displaced comminuted fracture of shaft of left tibia, initial encounter [S82.891C] Procedure(s): Procedure(s) (LRB): IRRIGATION AND DEBRIDEMENT - TIBIA (Left) OPEN REDUCTION INTERNAL FIXATION TIBIA - PROXIMAL - SYNTHES (Left) OPEN REDUCTION INTERNAL FIXATION - ANKLE (Right) Operative Findings: Left type 3 open proximal tibia fracture, right ankle fracture Estimated Blood Loss: No blood loss documented. Intraoperative Fluids: See anesthesia record Specimens: No specimen collected in procedure Implants: Implant Name Type Inv. Item Serial No. Learning And Development Analyst Lot No. LRB No. Used SYNTHES 223.641 LCP COMBI [id number] 14 HOLE LIMIT CONTACT TAPER END PLATE BONE - [id number] SYNTHES 223.641 Lcp Combi [id number] 14 Hole Limit Contact Taper End Plate Bone Synthes Left 1 SYNTHES 204.824 3.5MM 6MM 24MM 2.5MM SELF TAP SMALL HEXAGONAL SOCKET LOW PROFILE - [id number] SYNTHES 204.824 3.5mm 6mm 24mm 2.5mm Self Tap Small Hexagonal Socket Low Profile Synthes Left 2 SYNTHES 212.104 3.5MM 2.9MM 16MM SELF TAP LOCK STARDRIVE CONICAL HEAD T15 FULL - [id number] 3.5mm 2.9mm 16mm Self Tap Lock Stardrive Conical Head T15 Full Synthes Left 2 SYNTHES 212.103 3.5MM 2.9MM 14MM SELF TAP LOCK STARDRIVE CONICAL HEAD T15 FULL - [id number] 3.5mm 2.9mm 14mm Self Tap Lock Stardrive Conical Head T15 Full Synthes Left 2 SYNTHES 212.109 3.5MM 2.9MM 26MM SELF TAP LOCK STARDRIVE CONICAL HEAD T15 FULL - [id number] 3.5mm 2.9mm 26mm Self Tap Lock Stardrive Conical Head T15 Full Synthes Left 2 SYNTHES 212.101 3.5MM 2.9MM 10MM SELF TAP LOCK STARDRIVE CONICAL HEAD T15 FULL - [id number] 3.5mm 2.9mm 10mm Self Tap Lock Stardrive Conical Head T15 Full Synthes Left 1 SYNTHES 212.107 3.5MM 2.9MM 22MM SELF TAP LOCK STARDRIVE CONICAL HEAD T15 FULL - [id number] 3.5mm 2.9mm 22mm Self Tap Lock Stardrive Conical Head T15 Full Synthes Left 1 SYNTHES 204.840 3.5MM 6MM 40MM 2.5MM SELF TAP SMALL HEXAGONAL SOCKET LOW PROFILE - [id number] SYNTHES 204.840 3.5mm 6mm 40mm 2.5mm Self Tap Small Hexagonal Socket Low Profile Synthes Left 1 SYNTHES 204.832 3.5MM 6MM 32MM 2.5MM SELF TAP SMALL HEXAGONAL SOCKET LOW PROFILE - [id number] SYNTHES 204.832 3.5mm 6mm 32mm 2.5mm Self Tap Small Hexagonal Socket Low Profile Synthes Left 1 SYNTHES 241.351 LCP 12MM [id number] .7MM 5 HOLE COLLAR 1/3 TUBULAR PLATE BONE - [id number] SYNTHES 241.351 Lcp 12mm [id number] .7mm 5 Hole Collar 1/3 Tubular Plate Bone Synthes Left 1 SYNTHES 241.351 LCP 12MM [id number] .7MM 5 HOLE COLLAR 1/3 TUBULAR PLATE BONE - [id number] SYNTHES 241.351 Lcp 12mm [id number] .7mm 5 Hole Collar 1/3 Tubular Plate Bone Synthes Right 1 SYNTHES 204.826 3.5MM 6MM 26MM 2.5MM SELF TAP SMALL HEXAGONAL SOCKET LOW PROFILE - [id number] SYNTHES 204.826 3.5mm 6mm 26mm 2.5mm Self Tap Small Hexagonal Socket Low Profile Synthes Right 1 SYNTHES 212.102 3.5MM 2.9MM 12MM SELF TAP LOCK STARDRIVE CONICAL HEAD T15 FULL - [id number] 3.5mm 2.9mm 12mm Self Tap Lock Stardrive Conical Head T15 Full Synthes Right 1 SYNTHES 212.114 3.5MM 2.9MM 35MM SELF TAP LOCK STARDRIVE CONICAL HEAD T15 FULL - [id number] 3.5mm 2.9mm 35mm Self Tap Lock Stardrive Conical Head T15 Full Synthes Right 1 Blood/Blood Products Transfused: 0 mls Complications: None Condition on Discharge from the operating room was stable Migel Edwards MD Date: 06/30/2019 Time: 4:16 PM TEACHING ATTESTATION : I was present and directly participated in the entire procedure (including opening and closing). Cosigned by Jacobo Shoemaker MD at 07/03/2019 6:00 AM HOME SALES SERVICE PROFESSIONAL SALES SERVICE PROFESSIONAL SALES SERVICE PROFESSIONAL * Plan of Care - Deandra Bone MSW - 06/30/2019 12:49 PM CST Problem: Patient remains in the ICU, on a vent, and is not medically stable for discharge at this time. Chart reviewed and patient discussed in DCAM rounds by team. Arterial line. Fentanyl, propofol gtt. Turf Farmer remains involved for discharge planning and possible placement needs. Intervention/Plan: Patient will be referred to skilled/rehab/LTAC facilities of choice and screenedfor potential admission when appropriate pending guidance from team and therapy recommendations. Patient will benefit from continued assessment and therapy recommendations once more medically stable. Goal: Turf Farmer to continue to follow for discharge planning assistance, formation of a safe discharge plan, and emotional support for family as needed. Deandra Bone [facility] [place] [phone] SALES SERVICE PROFESSIONAL * Plan of Care - Allyson Tony RN - 06/30/2019 11:11 AM CST Patient remains in 44ICU, not stable for discharge to floor. Problem: S/p urgent OR overnight w/ I&D, ORIF L type III open periprosthetic fx. ??Remains intubated, sedated. CM unable to complete initial interview at this time. Case management services will continue to follow for any d/c needs. Please call me at for further inquiries. Goal: Transfer out of the ICU to nursing division when medically stable. SW and Case management services will continue to follow for any d/c needs. Please call me at [phone] for further inquiries. SALES SERVICE PROFESSIONAL * Plan of Care - Umer Peguero RRT - 06/30/2019 5:34 AM CST Patient will continue on A/C VC mode of ventilator as ordered by MD. No BEST trial this morning. SALES SERVICE PROFESSIONAL * Initial Assessments - Ina Pinedo - 06/29/2019 2:24 PM CST Problem: Patient is admitted to the ICU and may need continued care at discharge. History: Turf Farmer spoke with patient's friend Jt to provide orientation to role of social work, discuss discharge planning, and complete initial assessment. Patient is currently unable to participate in assessment. Patient's family provided information for assessment and verbalized understanding of education provided. Patient lives alone in a fourth floor apartment. Patient has a main level bedroom and bathroom. Prior to hospitalization, patient was independent with activities of daily living and required assistance with instrumental activities of daily living. Patient owns a walker, wheelchair and cane as DME. Patient does not have VA benefits. Patient has used home health care in the recent past. Goal is to regain prior level of functioning and return home with family support. Turf Farmer listened and provided support and encouragement. Turf Farmer to follow for discharge planning needs. Insurance: [employer] and [place] Education/Plan of Care: Turf Farmer spoke at length with patient's friend to discuss discharge planning and plan of care. Physical therapy recommendations for level of care at discharge are pendingcontinued assessment. Turf Farmer provided a brief education on home health care, SNF/rehab/LTAC facilities, criteria and insurance coverage. Patient's family verbalized understanding of education provided. Turf Farmer will provide a list of facility options for family to review once recommendations areknown and refer patient to facilities of choice. Patient's friend does not know who the patient's PCP is. Patient's pharmacy of choice is [facility] in [place]. Turf Farmer to follow for discharge planning needs and assist with placement. Additional Information/Barriers: Patient's friend Jt reports the prior to coming to the hospital the patient was receiving [facility] services from [facility]. These services helped clean the apartment and care for the patient. Patient's friend states that transportation was a barrier to the patient receiving medical care. Per patient's friend, the patient did not own a car and her insurance would not cover the cost of transportation. Patient's friend states the patient usually stayed in her apartment but did have some friends who lived in the same building. Coping: Patient coping cannot be assessed and friend is coping with diagnosis and prognosis as wellas can be expected. Turf Farmer to offer support and encouragement. AD/DPOA/Guardianship: Patient's friend unsure if patient has DPOA. Patient's friend states DPOA maybe patient's daughter who lives in [place]. Goal: Implement placement referral/needs, family support, and assist with any additional discharge services as needed. Goals include: To assure continuity of care, To maximize coping skills, To assure patient is in a safe environment and To assure access to community resources. Plan includes: Collaboration with patient/family, Attending, QUEBRACHO TANNER, RN, CM and other members of the health care team to assure needed interventions completed. Return patient to optimal level of self-care post discharge. Turf Farmer will follow for Discharge Planning - interventions as needed. Anticipate level of care at discharge. Impressions: Through the course of our work I determined that more information is required to assess if the family possesses the skill and ability to provide and monitor the care of the patient when he or she returns home. SW will reach out to family one the patient's friend is able to locate them. All are in agreement with the aftercare plan. Turf Farmer to follow as guided by team. Directives: Advance Directives (For Healthcare) Advance Directive: Patient has advance directive, copy not in chart (06/29/19 3003) Assessment: Information Information Obtained From: Other (Specify) Name: patient's friend Jt Referral Data Referral Reason: Discharge Planning Prior to Admission Primary Caregiver: Other (Comment) Support System: Friends/neighbors Home Care Services: Yes Type of Home Care Services: Other (Comment) Home care service name and phone number: [facility] Durable Medical Equipment: Walker (no wheels), Wheelchair, Cane (single prong) Living Arrangements: Alone Type of Residence: Apartment Steps in home? : Yes, Outside of home Number of steps outside:: 40 steps Medication management: Unable to Assess (06/29/19 1420) Communication: JAYNE Briones [place] Deandra Bone, [facility] [place] [facility] [phone] Cosigned by Deandra Bone MSW at 06/29/2019 3:11 PM HOME SALES SERVICE PROFESSIONAL SALES SERVICE PROFESSIONAL SALES SERVICE PROFESSIONAL * Plan of Care - Allyson Tony RN - 06/29/2019 1:36 PM CST Patient remains in 44ICU, not stable for discharge to floor. Problem: S/p urgent OR overnight w/ I&D, ORIF L type III open periprosthetic fx. Remains intubated, sedated. CM unable to complete initial interview at this time. Case management services will continue to follow for any d/c needs. Please call me at [phone] for further inquiries. Goal: Transfer out of the ICU to nursing division when medically stable. SW and Case management services will continue to follow for any d/c needs. Please call me at for further inquiries. SALES SERVICE PROFESSIONAL * Provider Query - Nora Queen - 06/29/2019 11:04 AM CST Please specify a diagnosis that reflects the patient???s hemodynamic status and document in the medical record and on the form below. Indicate Present on Admission Status. ___ Hypovolemic Shock, choose type below: ___ Due to blood loss/hemorrhage Hypovolemi ___ Due to other specified cause, specify below ___ Hemorrhagic Shock, choose type below: ___ Due to Trauma ___ Due to Surgery ___ Hypotension, no Shock ___ Other, specify below ___ Clinically unable to determine Clinical Indicators/Treatments: Documentation includes: Hypotension, ABLA, hypovolemia Post-op, Bps as low as 68/53, 73/43, 77/46 Lactate 3.3-->3.9 LUAN 2/2 hypotension, hypothermic Tx includes: MTP activation in ED, Phenylephrine as high as 1.2, 2 PRBC, arrives to SICU on vent Provider Response: Hypovolemia likely d/t hemorrhagic shock d/t trauma Use of terms such as likely, suspected, possible, or probable (associated with a specific diagnosisthat is being evaluated, monitored, or treated as if it exists) are acceptable and can be coded in the inpatient setting when documented at the time of discharge. This documentation will become part of the patient's medical record. Sincerely, Nora Queen RN, [facility] Health Information Management SALES SERVICE PROFESSIONAL * Provider Query - Nora Queen - 06/29/2019 11:00 AM CST Please specify the significance of the abnormal BMI and document in the medical record and on the form below. Indicate Present on Admission Status. BMI greater than 25 ___ Overweight ___ Obesity ___ Morbid (severe) Obesity ___ Other (specify) ___ Clinically unable to determine Clinical Indicators/Treatments: BMI 45.97 Co-morbid conditions: hyperglycemia, home meds include Lipitor Tx includes: Envision low air loss mattress 400 lb Provider Response: BMI ~25 -> overweight BMI definitions per www.NHLBI.nih.gov BMI Weight Status <18.5 Underweight 18.5 to 24.9 Normal/Healthy 25 to 29.9 Overweight 30 to 39.9 Obesity >40 Extreme Obesity (Morbid) Use of terms such as likely, suspected, possible, or probable (associated with a specific diagnosisthat is being evaluated, monitored, or treated as if it exists) are acceptable and can be coded in the inpatient setting when documented at the time of discharge. This documentation will become part of the patient's medical record. Sincerely, Nora Queen, RN, [facility] Health Information Management SALES SERVICE PROFESSIONAL * Plan of Care - Zulema Akers RN - 06/29/2019 8:23 AM CST Problem: Lack of Knowledge: Goal: Knowledge of restraints will improve Description INTERVENTIONS: 1. Educate patient/caregiver on restraints Outcome: Not Progressing Problem: Safety - Medical Restraint Goal: Remains free of injury from restraints (Restraint for Interference with Clinical Nurse Occupational Medicine) Description INTERVENTIONS: 1. Identify and document the criteria for restraint 2. Determine that other, less restrictive measures have been tried or would not be effective beforeapplying the restraint 3. Evaluate the patient's condition at the time of restraint application and continue to monitor patient's condition 4. Inform patient/family regarding the reason for restraint 5. Q2H: Monitor safety checks including skin, circulation, sensory,respiratory, psychosocial status, comfort, nutrition and hydration 6. Ensure safety/first aid measures are in place (i.e. Quick release, suction, crash cart, etc.) Outcome: Not Progressing Goal: Free from restraint(s) (Restraint for Interference with Clinical Nurse Occupational Medicine) Description INTERVENTIONS: 1. Q2H and PRN: Assess and document the continuing need for restraints 2. Q24H: Continued use of restraint requires LIP to perform face to face examination and written order (ICU restraint orders are not reviewed Q24H only at the time of initiation) 3. Identify and implement measures to help patient regain control Outcome: Not Progressing Problem: Lack of Knowledge: Goal: Ability to state ways to decrease the risk of falls will improve Outcome: Not Progressing Problem: Safety: Goal: Will remain free from falls Outcome: Not Progressing Goal: Will remain free from injury from falls Outcome: Not Progressing Goal: Will remain free from falls and injury in home environment Outcome: Not Progressing Problem: Activity: Goal: Mobility will improve Outcome: Not Progressing Problem: Lack of Knowledge: Goal: Understanding of ways to prevent future skin breakdown will improve Outcome: Not Progressing Goal: Ability to identify appropriate dietary choices will improve Outcome: Not Progressing Problem: Nutritional: Goal: Dietary intake will improve Outcome: Not Progressing Goal: Ability to maintain a balanced intake and output will improve Outcome: Not Progressing Problem: Skin Integrity: Goal: Risk for impaired skin integrity will decrease Outcome: Not Progressing Goal: Ability to demonstrate warm and dry skin will improve Outcome: Not Progressing Goal: Circulation will improve to fullest extent possible Outcome: Not Progressing Problem: Health Behavior: Goal: Understanding of discharge needs will improve Outcome: Not Progressing Problem: Lack of Knowledge: Goal: Knowledge of the prescribed therapeutic regimen will improve Outcome: Not Progressing Problem: Activity: Goal: Ability to ambulate will improve Outcome: Not Progressing Goal: Muscle strength will improve Outcome: Not Progressing Goal: Range of joint motion will improve Outcome: Not Progressing Problem: Physical Regulation: Goal: Ability to avoid complications of mobility impairment will improve Outcome: Not Progressing Problem: Safety: Goal: Ability to appropriately use an adaptive device for ambulation will improve Outcome: Not Progressing Goal: Ability to safely and independently change position in bed will improve Outcome: Not Progressing Goal: Ability to safely transfer will improve Outcome: Not Progressing Problem: Lack of Knowledge: Goal: Ability to develop a pain control plan will improve Outcome: Not Progressing Goal: Ability to identify pain intensity on a pain scale and rate it consistently will improve Outcome: Not Progressing Goal: Ability to notify healthcare provider of pain before it becomes unmanageable or unbearable will improve Outcome: Not Progressing Problem: Medication: Goal: Satisfaction with pain management regimen will improve Outcome: Not Progressing Problem: Sensory: Goal: Ability to identify factors that increase the pain will improve Outcome: Not Progressing Goal: Pain level will decrease Outcome: Not Progressing Goals: Clinical Goals for the Shift: Glucose control, pain control, OR today, wean vasopressors SALES SERVICE PROFESSIONAL * Plan of Care - Carina Reynoso RRT - 06/29/2019 6:16 AM CST Impression: Pt resting on full vent support. Plan: Evaluate for ability to wean from vent. Continue to wean FiO2% as tolerated. SALES SERVICE PROFESSIONAL * Plan of Care - Lizette Dutton RN - 06/29/2019 5:36 AM CST Problem: Lack of Knowledge: Goal: Knowledge of restraints will improve Description INTERVENTIONS: 1. Educate patient/caregiver on restraints Outcome: Progressing Problem: Safety - Medical Restraint Goal: Remains free of injury from restraints (Restraint for Interference with Clinical Nurse Occupational Medicine) Description INTERVENTIONS: 1. Identify and document the criteria for restraint 2. Determine that other, less restrictive measures have been tried or would not be effective beforeapplying the restraint 3. Evaluate the patient's condition at the time of restraint application and continue to monitor patient's condition 4. Inform patient/family regarding the reason for restraint 5. Q2H: Monitor safety checks including skin, circulation, sensory,respiratory, psychosocial status, comfort, nutrition and hydration 6. Ensure safety/first aid measures are in place (i.e. Quick release, suction, crash cart, etc.) Outcome: Progressing Goal: Free from restraint(s) (Restraint for Interference with Clinical Nurse Occupational Medicine) Description INTERVENTIONS: 1. Q2H and PRN: Assess and document the continuing need for restraints 2. Q24H: Continued use of restraint requires LIP to perform face to face examination and written order (ICU restraint orders are not reviewed Q24H only at the time of initiation) 3. Identify and implement measures to help patient regain control Outcome: Progressing Problem: Lack of Knowledge: Goal: Ability to state ways to decrease the risk of falls will improve Outcome: Progressing Problem: Safety: Goal: Will remain free from falls Outcome: Progressing Goal: Will remain free from injury from falls Outcome: Progressing Goal: Will remain free from falls and injury in home environment Outcome: Progressing Problem: Activity: Goal: Mobility will improve Outcome: Progressing Problem: Lack of Knowledge: Goal: Understanding of ways to prevent future skin breakdown will improve Outcome: Progressing Goal: Ability to identify appropriate dietary choices will improve Outcome: Progressing Problem: Nutritional: Goal: Dietary intake will improve Outcome: Progressing Goal: Ability to maintain a balanced intake and output will improve Outcome: Progressing Problem: Skin Integrity: Goal: Risk for impaired skin integrity will decrease Outcome: Progressing Goal: Ability to demonstrate warm and dry skin will improve Outcome: Progressing Goal: Circulation will improve to fullest extent possible Outcome: Progressing Problem: Health Behavior: Goal: Understanding of discharge needs will improve Outcome: Progressing Problem: Lack of Knowledge: Goal: [...] safely transfer will improve Outcome: Progressing Problem: Lack of Knowledge: Goal: Ability to develop a pain control plan will improve Outcome: Progressing Goal: Ability to identify pain intensity on a pain scale and rate it consistently will improve Outcome: Progressing Goal: Ability to notify healthcare provider of pain before it becomes unmanageable or unbearable will improve Outcome: Progressing Problem: Medication: Goal: Satisfaction with pain management regimen will improve Outcome: Progressing Problem: Sensory: Goal: Ability to identify factors that increase the pain will improve Outcome: Progressing Goal: Pain level will decrease Outcome: Progressing Goals: Clinical Goals for the Shift: WEan vasopressors, Keep MAP > 65. Glucose control, insulin gtt. Pain control,. review lab results. Summary: SALES SERVICE PROFESSIONAL * Op Note - Lo Laura DO - 06/28/2019 9:40 PM CST Operative Note ?? Attending Surgeon: Lo Laura DO Surgical Assistants: Resident *Rui Cohen MD ?? Date of Surgery: 06/28/2019 ? Preoperative Diagnosis: Pre-op Diagnosis * Left open tibia fracture Postoperative Diagnosis: Post-op Diagnosis * Left open tibia fracture ?? Procedure: Procedure(s): Left tibia irrigation and debridement with placement of a temporary locking plate and wound VAC placement. Anesthesia: General ?? Indications for Surgery 68-year-old female who sustained a fall at home. She lives alone. She was intubated at the time of examination does it was challenging to obtain much history. She did have an open left tibia fracturebut no vascular injury. She was indicated for surgical debridement with damage control orthopedics and a wound VAC placement along with a splint. He was deemed appropriate by multiple physicians thatthe patient should be taken to the operating room today for irrigation and debridement. ?? Operative Findings: The patient was seen in the emergency room where consent was obtained with multiple surgeons as thepatient did not have any family present and was intubated. The left proximal thigh was initialed. The patient was taken to the operating the transfered safely to the operative table while intubated. The wound had previously been irrigated in the emergency room but was scrubbed with a ChloraPrep wash. ?? The left lower extremity was prepped and draped sterilely. After a time-out was performed confirming the correct limb, the wound was thoroughly debrided of all tissue that could potentially be anidus for infection. Each corner of the wound was extended approximately 5 cm to be sure that the contamination did not extend. 9 L of saline was run through the wound on a low-pressure gravity system . Once the wound was thoroughly irrigated and debrided, the distal aspect of the fracture was reduced over the stem of the tibia revision total knee arthroplasty. Reduction was obtained and maintained with a [id number] clamp. An 8 hole 3.5mm LSP synthes plate was used with all locking screws including sizes 20, 24, 26, 16, and 22. There was a mixture of unicortical and bicortical locking screws placed for temporary fixation. Fluoroscopic images were taken confirming the hardware in good placement and around the stem of the patient's revision total knee arthroplasty. Prior to closure the wound was again irrigated with another Liter of saline. 3-0 nylon was used to close the wound, followed by wound VAC which was placed at the middle of all 3 corners. The wound VAC was placed to 125 mHg and a long leg posterior splint as well as a long-leg U shaped splint were placed over the wound VAC. The seal was maintained on the wound VAC and the splint was clean and dry upon departure from the operating room. ?? Tourniquet time: 18 minutes Fluid: 800 cc ?? Estimated Blood Loss: 100 cc ?? Specimens: No specimen collected in procedure ?? Complications: None ?? Condition on Discharge from the operating room was stable/intubated ?? Lo Laura DO ?? Date: 06/28/2019 Time: 11:57 pm SALES SERVICE PROFESSIONAL * ED Procedure Note - Forrest Begum MD - 06/28/2019 7:50 PM CSTAssociated Order(s): Critical Care Procedure Critical Care Performed by: Forrest Begum MD Authorized by: Forrest Begum MD Critical care provider statement: As reflected in the history, physical exam, orders, notes, and/or MDM, I was personally present while the patient was critically ill and provided critical care services for approximately 78 minutes, excluding time involved in separately billable procedures. Critical care was necessary to treat or prevent imminent or life-threatening deterioration of the following condition(s): unstable vital signs level 1 trauma, limb threatening condition and severe long-bone fracture Critical care was time spent by me providing the following: continuous telemetry, continuous pulse oximetry, continuous capnography, interpretation of bedside monitors, imaging, and arterial/venous lab draws and serial bedside patient exams transfusion of blood products advanced wound care, serial neurovascular exams and acute fracture care I provided emergent necessary critical care medicine services to this patient. I ordered and reviewed test results and/or imaging studies. I spent time discussing the management of this critically ill patient with consultants and the medical staff. I spent time discussing the management and therapeutic options for this critically ill patient with the patient themselves or with the appropriate designated surrogate decision-maker. I spent time documenting in the medical record. I admitted this patient to an Intensive Care unit (ICU) and discussed management with the admitting team. Forrest Begum MD 06/28/191950 SALES SERVICE PROFESSIONAL * ED Procedure Note - Forrest Begum MD - 06/28/2019 6:51 PM CSTAssociated Order(s): ECG 12 lead Procedure ECG 12 lead Date/Time: 06/28/2019 6:51 PM Performed by: Forrest Begum MD Authorized by: Yoli Monzon MD Rate: ECG rate: 77 ECG rate assessment: normal Rhythm: Rhythm: sinus rhythm Ectopy: Ectopy: none QRS: QRS axis: Left QRS intervals: Normal Conduction: Conduction: normal ST segments: ST segments: Normal T waves: T waves: normal Other findings: Other findings: LVH Previous ECG: Previous ECG: Compared to current Date of previous EC06/09/2019 Similarity: No change Interpretation: Interpretation: abnormal Forrest Begum MD 06/28/191851 SALES SERVICE PROFESSIONAL * ED Procedure Note - Mago Brian MD - 06/28/2019 5:37 PM HOME SALES SERVICE PROFESSIONAL Associated Order(s): Intubation Procedure Intubation Date/Time: 06/28/2019 5:37 PM Performed by: Mago Brian MD Authorized by: Forrest Begum MD [place] Protocol: RN Notified of Procedure: yes Informed consent: Unable to obtain due to emergent status Patient's stated name/ matches armband: Other (enter comment) Consent form signed, dated, timed; matches correct patient, intended procedure and site: No consentform due to emergent status Imaging: N/a Lab/Diag test results: N/a Supplies, devices and special equipment are available: yes Site/side marked: n/a Pre-procedure details: Patient status: Awake Mallampati score: III - soft palate, base of uvula visible Pretreatment medications: Fentanyl Paralytics: Succinylcholine Procedure details: Preoxygenation: None CPR in progress: no Intubation method: Oral Oral intubation technique: Direct Laryngoscope blade: Mac 3 Tube size (mm): 7.5 Tube type: Cuffed Number of attempts: 1 Ventilation between attempts: no Cricoid pressure: no Tube visualized through cords: yes Placement assessment: ETT to teeth: 19 Tube secured with: ETT triplett Breath sounds: Equal Placement verification: chest rise, condensation, direct visualization and ETCO2 detector Post-procedure details: Patient tolerance of procedure: Tolerated well, no immediate complications Post Procedure Debrief: All guidewires, needles, sponges or other items are accounted for: yes Any special post procedure monitoring, testing or other considerations: n/a All specimens identified, labeled and matched to patient identification: n/a Responsible democrat for transporting specimen(s) to lab determined: n/a Mago Brian MD Resident 06/28/19 1739 Cosigned by Forrest Begum MD at 06/29/2019 11:06 PM HOME SALES SERVICE PROFESSIONAL SALES SERVICE PROFESSIONAL SALES SERVICE PROFESSIONAL Associated attestation - Forrest Begum MD - 06/29/2019 11:06 PM HOME SALES SERVICE PROFESSIONAL I was present for the entire procedure documented in this encounter Plan of Treatment Pending Results Name Type Priority Associated Diagnoses Date /Time Check Sample Lab STAT 06/28/2019 6 :54 PM HOME SALES SERVICE PROFESSIONAL Scheduled Orders Name Type Priority Associated Diagnoses Orde r Schedule Check Sample Lab STAT Once for 1 O ccurrences starting 06/28/2019 until 06/28/2019 documented as of this encounter Procedures Procedure Name Priority Date/Time Associated Diagnosis Comments POCT GLUCOSE DEVICE Routine 07/02/2019 7:35 AM HOME SALES SERVICE PROFESSIONAL POCT GLUCOSE DEVICE Routine 07/02/2019 4:08 AM HOME SALES SERVICE PROFESSIONAL POCT GLUCOSE DEVICE Routine 07/01/2019 11:57 PM HOME SALES SERVICE PROFESSIONAL POCT GLUCOSE DEVICE Routine 07/01/2019 9:21 PM HOME SALES SERVICE PROFESSIONAL CALCIUM, IONIZED Routine 07/01/2019 9:14 PM HOME SALES SERVICE PROFESSIONAL CBC WITHOUT DIFFERENTIAL Routine 019 9:14 PM HOME SALES SERVICE PROFESSIONAL PHOSPHORUS Routine 07/01/2019 9:14 PM HOME SALES SERVICE PROFESSIONAL MAGNESIUM Routine 07/01/2019 9:14 PM HOME SALES SERVICE PROFESSIONAL BASIC METABOLIC PANEL Routine 07/01/2019 9:14 PM HOME SALES SERVICE PROFESSIONAL INFECTION PREVENTION MRSA ONLY (STAPHYLOCOCCUS AUREUS) CULTURE Routine 07/01/2019 2:19 PM HOME SALES SERVICE PROFESSIONAL POCT GLUCOSE DEVICE Routine 07/01/2019 7:41 AM HOME SALES SERVICE PROFESSIONAL CRITICAL CARE Routine 07/01/2019 7:09 AM HOME SALES SERVICE PROFESSIONAL Hypotension due to drugs Acute postoperative pain Bilateral lower extremity pain Bipolar I disorder with anxious distress (CMS/HCC) Intractable seizure disorder (CMS/HCC) Moderate essential hypertension Syncope due to sick sinus syndrome (CMS/HCC) EXTUBATION Routine 07/01/2019 5:26 AM HOME SALES SERVICE PROFESSIONAL POCT GLUCOSE DEVICE Routine 06/30/2019 11:43 PM HOME SALES SERVICE PROFESSIONAL CBC WITHOUT DIFFERENTIAL Routine 019 10:06 PM HOME SALES SERVICE PROFESSIONAL MAGNESIUM Routine 06/30/2019 10:06 PM HOME SALES SERVICE PROFESSIONAL BLOOD GAS, ARTERIAL Routine 06/30/2019 10:06 PM HOME SALES SERVICE PROFESSIONAL BASIC METABOLIC PANEL Routine 06/30/2019 10:06 PM HOME SALES SERVICE PROFESSIONAL CRITICAL CARE Routine 06/30/2019 7:50 PM HOME SALES SERVICE PROFESSIONAL Type III open displaced comminuted fracture of shaft of left tibia, initial encounter XR CHEST 1 VIEW IP Routine 06/30/2019 7:01 PM HOME SALES SERVICE PROFESSIONAL LACTATE, WHOLE BLOOD Routine 06/30/2019 4:23 PM HOME SALES SERVICE PROFESSIONAL APTT Routine 06/30/2019 4:21 PM HOME SALES SERVICE PROFESSIONAL PROTIME-INR Routine 06/30/2019 4:21 PM HOME SALES SERVICE PROFESSIONAL CBC WITHOUT DIFFERENTIAL Routine 019 4:21 PM HOME SALES SERVICE PROFESSIONAL FL FLUOROSCOPY < 1 HOUR IP Routine 06/30/20 19 2:51 PM HOME SALES SERVICE PROFESSIONAL TRANSFUSE RED BLOOD CELLS Timed 06/30/2019 2:13 PM HOME SALES SERVICE PROFESSIONAL POCT PLATELET COUNT AND HEMATOCRIT Routine 06/30/2019 1:28 PM HOME SALES SERVICE PROFESSIONAL POC BLOOD GAS AND CHEMISTRIES, VENOUS Routine 06/30/2019 1:27 PM HOME SALES SERVICE PROFESSIONAL OPEN REDUCTION INTERNAL FIXATION - ANKLE 06/30/2019 1:04 PM HOME SALES SERVICE PROFESSIONAL Type III open displaced comminuted fracture of shaft of left tibia, initial encounter OPEN REDUCTION INTERNAL FIXATION TIBIA - PROXIMAL - SYNTHES 06/30/2019 1:04 PM HOME SALES SERVICE PROFESSIONAL Type III open displaced comminuted fracture of shaft of left tibia, initial encounter IRRIGATION AND DEBRIDEMENT ? TIBIA 06/30/2019 1:04 PM HOME SALES SERVICE PROFESSIONAL Type III open displaced comminuted fracture of shaft of left tibia, initial encounter DIFFERENTIAL AUTO Routine 06/30/2019 11:27 AM HOME SALES SERVICE PROFESSIONAL CBC WITH AUTO DIFFERENTIAL Routine 06/30/2019 11:27 AM HOME SALES SERVICE PROFESSIONAL PREPARE RBC STAT 06/30/2019 10:49 AM HOME SALES SERVICE PROFESSIONAL POCT GLUCOSE DEVICE Routine 06/30/2019 8:07 AM HOME SALES SERVICE PROFESSIONAL CRITICAL CARE Routine 06/30/2019 6:51 AM HOME SALES SERVICE PROFESSIONAL Type III open displaced comminuted fracture of shaft of left tibia, initial encounter CBC WITHOUT DIFFERENTIAL Routine 019 4:35 AM HOME SALES SERVICE PROFESSIONAL POCT GLUCOSE DEVICE Routine 06/30/2019 3:36 AM HOME SALES SERVICE PROFESSIONAL TRANSFUSE RED BLOOD CELLS Timed 06/30/2019 1:20 AM HOME SALES SERVICE PROFESSIONAL PREPARE RBC Timed 06/30/2019 12:45 AM HOME SALES SERVICE PROFESSIONAL POCT GLUCOSE DEVICE Routine 06/29/2019 11:46 PM HOME SALES SERVICE PROFESSIONAL CBC WITHOUT DIFFERENTIAL STAT 019 11:23 PM HOME SALES SERVICE PROFESSIONAL DIFFERENTIAL AUTO Routine 06/29/2019 10:35 PM HOME SALES SERVICE PROFESSIONAL CBC WITH AUTO DIFFERENTIAL Routine 06/29/2019 10:35 PM HOME SALES SERVICE PROFESSIONAL PHOSPHORUS Routine 06/29/2019 10:35 PM HOME SALES SERVICE PROFESSIONAL MAGNESIUM Routine 06/29/2019 10:35 PM HOME SALES SERVICE PROFESSIONAL BASIC METABOLIC PANEL Routine 06/29/2019 10:35 PM HOME SALES SERVICE PROFESSIONAL POCT GLUCOSE DEVICE Routine 06/29/2019 9:17 PM HOME SALES SERVICE PROFESSIONAL POCT GLUCOSE DEVICE Routine 06/29/2019 7:54 PM HOME SALES SERVICE PROFESSIONAL CRITICAL CARE Routine 06/29/2019 7:35 PM HOME SALES SERVICE PROFESSIONAL Type III open displaced comminuted fracture of shaft of left tibia, initial encounter POCT GLUCOSE DEVICE Routine 06/29/2019 7:13 PM HOME SALES SERVICE PROFESSIONAL XR CHEST 1 VIEW IP Routine 06/29/2019 6:40 PM HOME SALES SERVICE PROFESSIONAL POCT GLUCOSE DEVICE Routine 06/29/2019 5:45 PM HOME SALES SERVICE PROFESSIONAL POCT GLUCOSE DEVICE Routine 06/29/2019 5:44 PM HOME SALES SERVICE PROFESSIONAL GENTAMICIN LEVEL TROUGH Timed 06/29/20 4:59 PM HOME SALES SERVICE PROFESSIONAL POCT GLUCOSE DEVICE Routine 06/29/2019 4:58 PM HOME SALES SERVICE PROFESSIONAL POCT GLUCOSE DEVICE Routine 06/29/2019 4:57 PM HOME SALES SERVICE PROFESSIONAL POCT GLUCOSE DEVICE Routine 06/29/2019 4:00 PM HOME SALES SERVICE PROFESSIONAL POCT GLUCOSE DEVICE Routine 06/29/2019 1:58 PM HOME SALES SERVICE PROFESSIONAL POCT GLUCOSE DEVICE Routine 06/29/2019 1:15 PM HOME SALES SERVICE PROFESSIONAL POCT GLUCOSE DEVICE Routine 06/29/2019 12:07 PM HOME SALES SERVICE PROFESSIONAL POCT GLUCOSE DEVICE Routine 06/29/2019 11:13 AM HOME SALES SERVICE PROFESSIONAL POCT GLUCOSE DEVICE Routine 06/29/2019 10:05 AM HOME SALES SERVICE PROFESSIONAL [place] ARTL CATHJ/CANNULJ MNTR/TRANSFUSION SPX PRQ Routine 06/29/2019 9:16 AM HOME SALES SERVICE PROFESSIONAL Hypotension due to drugs POCT GLUCOSE DEVICE Routine 06/29/2019 9:06 AM HOME SALES SERVICE PROFESSIONAL POCT GLUCOSE DEVICE Routine 06/29/2019 8:05 AM HOME SALES SERVICE PROFESSIONAL CRITICAL CARE Routine 06/29/2019 7:33 AM HOME SALES SERVICE PROFESSIONAL Type III open displaced comminuted fracture of shaft of left tibia, initial encounter POCT GLUCOSE DEVICE Routine 06/29/2019 7:02 AM HOME SALES SERVICE PROFESSIONAL POCT GLUCOSE DEVICE Routine 06/29/2019 6:15 AM HOME SALES SERVICE PROFESSIONAL DIFFERENTIAL AUTO Timed 06/29/2019 5:07 AM HOME SALES SERVICE PROFESSIONAL CBC WITH AUTO DIFFERENTIAL Timed 06/29/2019 5:07 AM HOME SALES SERVICE PROFESSIONAL LACTATE, WHOLE BLOOD Timed 06/29/2019 5:07 AM HOME SALES SERVICE PROFESSIONAL POCT GLUCOSE DEVICE Routine 06/29/2019 5:04 AM HOME SALES SERVICE PROFESSIONAL POCT GLUCOSE DEVICE Routine 06/29/2019 3:57 AM HOME SALES SERVICE PROFESSIONAL POCT GLUCOSE DEVICE Routine 06/29/2019 3:01 AM HOME SALES SERVICE PROFESSIONAL POCT GLUCOSE DEVICE Routine 06/29/2019 1:54 AM HOME SALES SERVICE PROFESSIONAL POCT GLUCOSE DEVICE Routine 06/29/2019 1:16 AM HOME SALES SERVICE PROFESSIONAL XR CHEST 1 VIEW Timed 06/29/2019 12:33 AM HOME SALES SERVICE PROFESSIONAL POCT GLUCOSE DEVICE Routine 06/29/2019 12:02 AM HOME SALES SERVICE PROFESSIONAL POTASSIUM, WHOLE BLOOD STAT 9 12:00 AM HOME SALES SERVICE PROFESSIONAL DIFFERENTIAL AUTO STAT 06/29/2019 12:00 AM HOME SALES SERVICE PROFESSIONAL CALCIUM, IONIZED STAT 06/29/2019 12:00 AM HOME SALES SERVICE PROFESSIONAL BETA-HYDROXYBUTYRATE Routine 06/29/2019 12:00 AM HOME SALES SERVICE PROFESSIONAL CBC WITH AUTO DIFFERENTIAL STAT 06/29/2019 12:00 AM HOME SALES SERVICE PROFESSIONAL LACTATE, WHOLE BLOOD STAT 06/29/2019 12:00 AM HOME SALES SERVICE PROFESSIONAL INFECTION PREVENTION MRSA ONLY (STAPHYLOCOCCUS AUREUS) CULTURE Routine 06/29/2019 12:00 AM HOME SALES SERVICE PROFESSIONAL PHOSPHORUS STAT 06/29/2019 12:00 AM HOME SALES SERVICE PROFESSIONAL MAGNESIUM STAT 06/29/2019 12:00 AM HOME SALES SERVICE PROFESSIONAL BLOOD GAS, ARTERIAL STAT 06/29/2019 12:00 AM HOME SALES SERVICE PROFESSIONAL VALPROIC ACID LEVEL, TOTAL STAT 06/29/2019 12:00 AM HOME SALES SERVICE PROFESSIONAL BASIC METABOLIC PANEL STAT 06/29/2019 12:00 AM HOME SALES SERVICE PROFESSIONAL CRITICAL CARE Routine 06/28/2019 11:57 PM HOME SALES SERVICE PROFESSIONAL Type III open displaced comminuted fracture of shaft of left tibia, initial encounter Hypotension due to drugs POCT GLUCOSE DEVICE Routine 06/28/2019 11:33 PM HOME SALES SERVICE PROFESSIONAL FL FLUOROSCOPY < 1 HOUR IP Routine 06/28/20 19 10:47 PM HOME SALES SERVICE PROFESSIONAL B CHECK SAMPLE STAT 06/28/2019 10:33 PM HOME SALES SERVICE PROFESSIONAL POC BLOOD GAS AND CHEMISTRIES, VENOUS Routine 06/28/2019 10:25 PM HOME SALES SERVICE PROFESSIONAL TYPE AND SCREEN STAT 06/28/2019 10:02 PM HOME SALES SERVICE PROFESSIONAL POCT GLUCOSE DEVICE Routine 06/28/2019 9:39 PM HOME SALES SERVICE PROFESSIONAL PREPARE RBC STAT 06/28/2019 9:18 PM HOME SALES SERVICE PROFESSIONAL OPEN REDUCTION INTERNAL FIXATION - TIBIA 06/28/2019 9:12 PM HOME SALES SERVICE PROFESSIONAL Type III open displaced comminuted fracture of shaft of left tibia, initial encounter Case Notes [phone] IRRIGATION AND DEBRIDEMENT ? TIBIA 06/28/2019 9:12 PM HOME SALES SERVICE PROFESSIONAL Type III open displaced comminuted fracture of shaft of left tibia, initial encounter Case Notes [phone] PREPARE RBC Routine 06/28/2019 8:51 PM HOME SALES SERVICE PROFESSIONAL DIFFERENTIAL AUTO STAT 06/28/2019 8:42 PM HOME SALES SERVICE PROFESSIONAL CBC WITH AUTO DIFFERENTIAL STAT 06/28/2019 8:42 PM HOME SALES SERVICE PROFESSIONAL POCT GLUCOSE DEVICE Routine 06/28/2019 8:26 PM HOME SALES SERVICE PROFESSIONAL [place] CRITICAL CARE ILL/INJURED PATIENT ADDL 30 MIN Routine 06/28/2019 7:50 PM HOME SALES SERVICE PROFESSIONAL [place] CRITICAL CARE ILL/INJURED PATIENT INIT 30-74 MIN Routine 06/28/2019 7:50 PM HOME SALES SERVICE PROFESSIONAL POCT GLUCOSE DEVICE Routine 06/28/2019 7:31 PM HOME SALES SERVICE PROFESSIONAL POCT HCG, URINE Routine 06/28/2019 7:23 PM HOME SALES SERVICE PROFESSIONAL XR TIBIA FIBULA LEFT 2 VIEWS ED 06/28/2019 7:20 PM HOME SALES SERVICE PROFESSIONAL XR PELVIS 1 OR 2 VIEWS ED 9 7:19 PM HOME SALES SERVICE PROFESSIONAL XR TIBIA FIBULA RIGHT2 VIEWS ED 06/28/2019 7:19 PM HOME SALES SERVICE PROFESSIONAL XR ANKLE LEFT 3 OR MORE VIEWS ED 06/28/2019 7:19 PM HOME SALES SERVICE PROFESSIONAL XR CHEST 1 VIEW ED 06/28/2019 7:19 PM HOME SALES SERVICE PROFESSIONAL XR FEMUR LEFT 2 OR MORE VIEWS ED 06/28/2019 7:19 PM HOME SALES SERVICE PROFESSIONAL XR KNEE LEFT 1 OR 2 VIEWS ED 06/28/2019 7:19 PM HOME SALES SERVICE PROFESSIONAL XR ANKLE RIGHT 3 OR MORE VIEWS ED 06/28/2019 7:18 PM HOME SALES SERVICE PROFESSIONAL FENTANYL CONFIRMATION, MS URINE STAT 06/28/2019 6:54 PM HOME SALES SERVICE PROFESSIONAL DRUGS OF ABUSE SCREEN, URINE WITH REFLEX CONFIRMATION STAT 06/28/2019 6:54 PM HOME SALES SERVICE PROFESSIONAL POTASSIUM, WHOLE BLOOD STAT 9 6:54 PM HOME SALES SERVICE PROFESSIONAL OPIATES CONFIRMATION MS, URINE STAT 06/28/2019 6:54 PM HOME SALES SERVICE PROFESSIONAL URINALYSIS AND REFLEX TO MICROSCOPIC AND CULTURE STAT 06/28/2019 6:54 PM HOME SALES SERVICE PROFESSIONAL URINALYSIS, MICROSCOPIC ONLY STAT 06/28/2019 6:54 PM HOME SALES SERVICE PROFESSIONAL BLOOD GAS, ARTERIAL STAT 06/28/2019 6:54 PM HOME SALES SERVICE PROFESSIONAL ECG 12-LEAD Routine 06/28/2019 6:51 PM HOME SALES [employer]AL CT CHEST ABDOMEN PELVIS W CONTRAST ED 06/28/2019 6:27 PM HOME SALES SERVICE PROFESSIONAL CTA LOWER EXTREMITY LEFT NOT FOR ISCHEMIA ED 06/28/2019 6:27 PM HOME SALES [employer]ICE PROFESSIONAL CT HEAD AND CERVICAL SPINE WO CONTRAST ED 06/28/2019 6:21 PM HOME SALES SERVICE PROFESSIONAL ED INTUBATION Routine 06/28/2019 5:37 PM HOME SALES SERVICE PROFESSIONAL EXTRINSIC THROMBOELASTOMETRY (EXTEM) STAT 06/28/2019 5:35 PM HOME SALES SERVICE PROFESSIONAL THROMBOCYTE INHIBITED FIBRINOGEN (FIBTEM) STAT 06/28/2019 5:35 PM HOME SALES SERVICE PROFESSIONAL BLOOD GAS, VENOUS STAT 06/28/2019 5:35 PM HOME SALES SERVICE PROFESSIONAL POCT CREATININE - DEVICE Routine 019 5:27 PM HOME SALES SERVICE PROFESSIONAL POCT LACTATE - DEVICE Routine 06/28/2019 5:23 PM HOME SALES SERVICE PROFESSIONAL POCT GLUCOSE DEVICE Routine 06/28/2019 5:18 PM HOME SALES SERVICE PROFESSIONAL [place] INSJ NON-TUNNELED CENTRAL VENOUS CATH AGE 5 YR/> Routine 06/28/2019 5:10 PM HOME SALES SERVICE PROFESSIONAL Type III open displaced comminuted fracture of shaft of left tibia, initial encounter DIFFERENTIAL AUTO STAT 06/28/2019 5:02 PM HOME SALES SERVICE PROFESSIONAL CRITICAL RESULT CALLBACK CHEMISTRY STAT 06/28/2019 5:02 PM HOME SALES SERVICE PROFESSIONAL VERIFY NOW ASPIRIN STAT 06/28/2019 5:02 PM HOME SALES SERVICE PROFESSIONAL CBC WITH AUTO DIFFERENTIAL STAT 06/28/2019 5:02 PM HOME SALES SERVICE PROFESSIONAL TROPONIN I STAT 06/28/2019 5:02 PM HOME SALES SERVICE PROFESSIONAL APTT STAT 06/28/2019 5:02 PM HOME SALES SERVICE PROFESSIONAL PROTIME-INR STAT 06/28/2019 5:02 PM HOME SALES SERVICE PROFESSIONAL TYPE AND SCREEN STAT 06/28/2019 5:02 PM HOME SALES SERVICE PROFESSIONAL CREATINE KINASE (CK), TOTAL STAT 06/28/2019 5:02 PM HOME SALES SERVICE PROFESSIONAL ETHANOL STAT 06/28/2019 5:02 PM HOME SALES SERVICE PROFESSIONAL COMPREHENSIVE METABOLIC PANEL STAT 06/28/2019 5:02 PM HOME SALES SERVICE PROFESSIONAL documented in this encounter Results * POCT glucose (07/02/2019 7:35 AM HOME SALES SERVICE PROFESSIONAL) Glucose, POC 155 70 - 199 mg/dL [facility] Blood specimen (specimen) 07/02/2019 7:35 AM HOME SALES SERVICE PROFESSIONAL 07/02/2019 7:35 AM HOME SALES SERVICE PROFESSIONAL us Dean Ritter MD LAB POCT ORDERABLES - DEV ICE Final Result [facility] Department [place] [address] * POCT glucose (07/02/2019 4:08 AM HOME SALES SERVICE PROFESSIONAL) Glucose, POC 148 70 - 199 mg/dL [facility] Blood specimen (specimen) 07/02/2019 4:08 AM HOME SALES SERVICE PROFESSIONAL 07/02/2019 4:08 AM HOME SALES SERVICE PROFESSIONAL Dean Ritter MD LAB POCT ORDERABLES - DEV ICE Final Result Performing Organization Address [facility] de Phone Number [facility] [place] [address] * POCT glucose (07/01/2019 11:57 PM HOME SALES SERVICE PROFESSIONAL) Glucose, POC 119 70 - 199 mg/dL [facility] Blood specimen (specimen) 07/01/2019 11:57 PM HOME SALES SERVICE PROFESSIONAL 07/01/2019 11:57 PM HOME SALES SERVICE PROFESSIONAL Dean Ritter MD LAB POCT ORDERABLES - DEV ICE Final Result Performing Organization Address [facility] de Phone Number [facility] [place] [address] * POCT glucose (07/01/2019 9:21 PM HOME SALES SERVICE PROFESSIONAL) Glucose, POC 169 70 - 199 mg/dL [facility] Blood specimen (specimen) 07/01/2019 9:21 PM HOME SALES SERVICE PROFESSIONAL 07/01/2019 9:21 PM HOME SALES SERVICE PROFESSIONAL Dean Ritter MD LAB POCT ORDERABLES - DEV ICE Final Result Performing Organization Address [facility] de Phone Number [facility] [place] [address] * Phosphorus (07/01/2019 9:14 PM HOME SALES SERVICE PROFESSIONAL) Phosphorus, pl 2.7 2.3 - 4.5 mg/dL [facility] Blood specimen (specimen) 07/01/2019 9:14 PM HOME SALES SERVICE PROFESSIONAL 07/01/2019 9:23 PM HOME SALES SERVICE PROFESSIONAL us Roxanne L. Neunaber [facility]BR[facility] TANNER LAB BLOOD ORDERABLES Ellyn l Result Performing Organization Address [facility] Co de Phone Number [facility] [place] [address] * Magnesium (07/01/2019 9:14 PM HOME SALES SERVICE PROFESSIONAL) [facility] Magnesium 2.0 1.4 - 2.5 mg/dL [facility] Blood specimen (specimen) 07/01/2019 9:14 PM HOME SALES SERVICE PROFESSIONAL 07/01/2019 9:23 PM HOME SALES SERVICE PROFESSIONAL Roxanne Gomez [facility] LAB BLOOD ORDERABLES Ellyn l Result Performing Organization Address [facility] de Phone Number [facility] [place] [address] * (ABNORMAL) Calcium, ionized (07/01/2019 9:14 PM HOME SALES SERVICE PROFESSIONAL) [facility] Calcium, Ionized 3.91(L) 4.50 - 5.10 mg/dL [facility] Blood specimen (specimen) 07/01/2019 9:14 PM HOME SALES SERVICE PROFESSIONAL 07/01/2019 9:23 PM HOME SALES SERVICE PROFESSIONAL Roxanne Gomez [facility] LAB BLOOD ORDERABLES Ellyn l Result Performing Organization Address [facility] de Phone Number [facility] Department [place] [address] * (ABNORMAL) Basic metabolic panel (07/01/2019 9:14 PM HOME SALES SERVICE PROFESSIONAL) [facility] Sodium 135 135 - 145 mmol/L [facility] Potassium, pl 4.7 3.3 - 4.9 mmol/L [facility] Chloride 103 97 - 110 mmol/L [facility] CO2 24 22 - 32 mmol/L [facility] Anion gap 8 2 - 15 mmol/L [facility] BUN 12 8 - 25 mg/dL [facility] Creatinine 0.96 0.60 - 1.10 mg/dL [facility] Glucose 164 70 - 199 mg/dL [facility] Comment: Interpretive Data Fasting glucose >/= [...] interpretive data was last revised 2017. Calcium 7.6(L) 8.5 - 10.3 mg/dL [facility] Blood specimen (specimen) 07/01/2019 9:14 PM HOME SALES SERVICE PROFESSIONAL 07/01/2019 9:23 PM HOME SALES SERVICE PROFESSIONAL Roxanne Gomez NP LAB BLOOD ORDERABLES Ellyn adams Result [facility] [place] [address] * (ABNORMAL) CBC without differential (07/01/2019 9:14 PM HOME SALES SERVICE PROFESSIONAL) WBC 17.4(H) 3.8 - 9.9 K/cumm [facility] Hgb 7.6(L) 11.9 - 15.5 g/dL [facility] Hct 23.6(L) 35.6 - 45.5 % [facility] Plt 174 150 - 400 K/cumm [facility] MPV 10.8 9.1 - 12.3 fL [facility] RBC 2.72(L) 3.90 - 5.20 M/cumm [facility] MCV 86.8 81.3 - 96.4 fL [facility] MCH 27.9 27.1 - 33.3 pg [facility] MCHC 32.2(L) 32.3 - 35.7 g/dL [facility] RDW CV 17.8(H) 11.1 - 14.9 % [facility] RDW SD 55.1(H) 35.7 - 48.1 fL [facility] NRBC abs 0.18(H) 0.00 - 0.01 K/cumm [facility] Blood specimen (specimen) 07/01/2019 9:14 PM HOME SALES SERVICE PROFESSIONAL 07/01/2019 9:33 PM HOME SALES SERVICE PROFESSIONAL us Roxanne Gomez NP LAB BLOOD ORDERABLES Ellyn l Result Performing Organization Address City/[facility]/ZIP Co de Phone Number [facility] Department [place] [address] * Infection Prevention MRSA Only (Staphylococcus aureus) Culture Nasal (07/01/2019 2:19 PM HOME SALES SERVICE PROFESSIONAL) Report Final Report: Negative [facility] Nasal 07/01/2019 2:19 PM HOME SALES SERVICE PROFESSIONAL 07/01/2019 2:54 PM HOME SALES SERVICE PROFESSIONAL Narrative [facility] - 07/02/2019 6:08 PM HOME SALES SERVICE PROFESSIONAL Testing performed by [facility] ([phone]). us Roxanne Gomez NP LAB MICROBIOLOGY - GENERA L ORDERABLES Final Result Performing Organization Address City/[facility] Co de Phone Number [facility] Department [place] [address] * POCT glucose (07/01/2019 7:41 AM HOME SALES SERVICE PROFESSIONAL) Glucose, POC 156 70 - 199 mg/dL [facility] Blood specimen (specimen) 07/01/2019 7:41 AM HOME SALES SERVICE PROFESSIONAL 07/01/2019 7:41 AM HOME SALES SERVICE PROFESSIONAL us Dean Ritter MD LAB POCT ORDERABLES - DEV ICE Final Result Performing Organization Address City/[facility] Co de Phone Number [facility] [place] [address] * Critical Care (07/01/2019 7:09 AM HOME SALES SERVICE PROFESSIONAL) Narrative Roxanne Gomez NP - 07/01/2019 7:09 AM HOME SALES SERVICE PROFESSIONAL Roxanne Gomez NP ? 07/01/2019 ??4:13 PM Critical Care Performed by: Roxanne Gomez NP Authorized by: Roxanne Gomez NP CRITICAL CARE: ??Team: ??SICU BLUE ??Shift: ??AM ??Level of Billing: ??Subsequent Hospital Visit Level 3 ??My time spent with this patient was 75 minutes: Critical Provider Statement: I have seen and examined the patient on this day of service. I have reviewed and confirmed the history, physical exam, laboratory, and radiographic data as documented in the ICU note. I have reviewed and discussed my treatment plan with the patient's team and other medical/service consultant staff. This time was in addition to and separate from care provided by other practitioners on this day of service. ? I spent time reviewing and interpreting data from bedside monitors, laboratory results, and imaging, I spent time discussing the management of this critically ill patient with consultants and the medical staff and I spent time documenting in the medical record Roxanne Gomez NP IN CLINIC/BEDSIDE ORDERAB LES Final Result * POCT glucose (06/30/2019 11:43 PM HOME SALES SERVICE PROFESSIONAL) Glucose, POC 98 70 - 199 mg/dL [facility] Blood specimen (specimen) 06/30/2019 11:43 PM HOME SALES SERVICE PROFESSIONAL 06/30/2019 11:43 PM HOME SALES SERVICE PROFESSIONAL Dean Ritter MD LAB POCT ORDERABLES - DEV ICE Final Result [facility] [place] [address] * Magnesium (06/30/2019 10:06 PM HOME SALES SERVICE PROFESSIONAL) Magnesium 2.1 1.4 - 2.5 mg/dL [facility] Blood specimen (specimen) 06/30/2019 10:06 PM HOME SALES SERVICE PROFESSIONAL 06/30/2019 10:18 PM HOME SALES SERVICE PROFESSIONAL Dean Ritter MD LAB BLOOD ORDERABLES Ellyn l Result Performing Organization Address [facility] Co de Phone Number [facility] Department [place] [address] * (ABNORMAL) Blood gas, arterial (06/30/2019 10:06 PM HOME SALES SERVICE PROFESSIONAL) pH, Art 7.40 7.35 - 7.45 [facility] PCO2, Arterial 42 35 - 45 mmHg [facility] PO2, Arterial 107 83 - 108 mmHg [facility] HCO3 Art (Calculated) 27 20 - 30 mmol/L [facility] BE, art 1 mmol/L [facility] Comment: Interpretive Data No Reference Range Established Current Interpretive Data was last revised on 2017 O2 Sat Art (Measured) 98(H) 90 - 95 % [facility] Blood specimen (specimen) 06/30/2019 10:06 PM HOME SALES SERVICE PROFESSIONAL 06/30/2019 10:17 PM HOME SALES SERVICE PROFESSIONAL Roxanne Gomez NP LAB BLOOD ORDERABLES Ellyn l Result Performing Organization Address [facility] Co de Phone Number [facility] Department [place] [address] * (ABNORMAL) Basic metabolic panel (06/30/2019 10:06 PM HOME SALES SERVICE PROFESSIONAL) Pathologist [facility] Sodium 139 135 - 145 mmol/L [facility] Potassium, pl 4.2 3.3 - 4.9 mmol/L [facility] Chloride 105 97 - 110 mmol/L [facility] CO2 26 22 - 32 mmol/L [facility] Anion gap 8 2 - 15 mmol/L [facility] BUN 14 8 - 25 mg/dL [facility] Creatinine 0.95 0.60 - 1.10 mg/dL [facility] Glucose 130 70 - 199 mg/dL [facility] Comment: Interpretive Data Fasting glucose >/= [...] interpretive data was last revised 2017. Calcium 7.9(L) 8.5 - 10.3 mg/dL [facility] Blood specimen (specimen) 06/30/2019 10:06 PM HOME SALES SERVICE PROFESSIONAL 06/30/2019 10:18 PM HOME SALES SERVICE PROFESSIONAL us Roxanne Gomez NP LAB BLOOD ORDERABLES Ellyn adams Result [facility] [place] [address] * (ABNORMAL) CBC without differential (06/30/2019 10:06 PM HOME SALES SERVICE PROFESSIONAL) WBC 16.5(H) 3.8 - 9.9 K/cumm [facility] Hgb 8.2(L) 11.9 - 15.5 g/dL [facility] Hct 25.5(L) 35.6 - 45.5 % [facility] Plt 166 150 - 400 K/cumm [facility] MPV 11.6 9.1 - 12.3 fL [facility] RBC 2.97(L) 3.90 - 5.20 M/cumm [facility] MCV 85.9 81.3 - 96.4 fL [facility] MCH 27.6 27.1 - 33.3 pg [facility] MCHC 32.2(L) 32.3 - 35.7 g/dL [facility] RDW CV 17.7(H) 11.1 - 14.9 % [facility] RDW SD 54.6(H) 35.7 - 48.1 fL [facility] NRBC abs 0.23(H) 0.00 - 0.01 K/cumm [facility] Blood specimen (specimen) 06/30/2019 10:06 PM HOME SALES SERVICE PROFESSIONAL 06/30/2019 10:33 PM HOME SALES SERVICE PROFESSIONAL us Roxanne Gomez [facility]ANNER LAB BLOOD ORDERABLES Ellyn adams Result [facility] [place] [address] * Critical Care (06/30/2019 7:50 PM HOME SALES SERVICE PROFESSIONAL) Narrative OfJameson calvin MD - 06/30/2019 7:50 PM HOME SALES SERVICE PROFESSIONAL JOSE CRUZ H[place] ? 07/01/2019 ??5:31 AM Critical Care Performed by: JOSE CRUZ Hinton Authorized by: JOSE CRUZ Hinton CRITICAL CARE: ??Team: ??SICU BLUE ??Shift: ??PM ??Level of Billing: ??Critical Care ??My time spent with this patient was 75 minutes: Critical Provider Statement: I have seen and examined the patient on this day of service. I have reviewed and confirmed the history, physical exam, laboratory and radiologic data as documented in the signed ICU note. I have reviewed and discussed my treatment plan with the ICU team and other medical/service consultant staff, making frequent assessments and decisions regarding this patient's complex medical care. Critical Care time was exclusive of time spent performing separately billed procedures, treating other patients, and teaching. This time was in addition to and separate from critical care provided by other practitioners in my group on this day of service. Critical Care was necessary to treat or prevent imminent or life-threatening deterioration of the following conditions: ? Acute pain/acute postoperative pain ?? Acute undifferentiated respiratory failure ?? Acute kidney injury ??This time was spent by me doing the following: ? Acute pain control and Active titration of continuous sedation ?? Active and frequent reassessment of respiratory status and oxygen requirements and Invasive ventilator management, reassessment, and titration ?? Active and frequent monitoring of intake/output and volumen status and Glycemic control ?? Empiric broad coverage antibiotics ?? I spent time reviewing and interpreting data from bedside monitors, laboratory results, and imaging, I spent time discussing the management of this critically ill patient with consultants and the medical staff and I spent time documenting in the medical record us Ina [facility] IN CLINIC/BEDSIDE ORDERAB LES Final Result * XR Chest 1 View - in AM (06/30/2019 7:01 PM HOME SALES SERVICE PROFESSIONAL) Anatomical Region Laterality Modality Body, Chest N/A Computed Radiogr aphy 07/01/2019 9:40 AM HOME SALES SERVICE PROFESSIONAL Impressions 07/01/2019 9:41 AM HOME SALES SERVICE PROFESSIONAL Prior comparison 06/29/2019. ??There is an endotracheal tube terminating 1.6 cm above the jesús. ??There is a nasogastric tube with the tip terminating below the diaphragm and off the [id number]. There are small lung volumes. ??Patchy areas of atelectasis are noted bilaterally. ??No pneumothorax, pleural effusion, or pulmonary edema. No focal consolidation. ??The heart size is normal. ??The aorta is mildly tortuous with atherosclerotic calcification noted at the aortic arch. Dictated by: Ananth Bar M.D. The radiology attending physician has personally reviewed this study, and had reviewed and/or edited this written report and agrees with it. Electronically signed by: Jason Tellez M.D. Narrative 07/01/2019 9:41 AM HOME SALES SERVICE PROFESSIONAL EXAMINATION: 1 view chest radiograph Procedure Note Jason Tellez MD - 07/01/2019 EXAMINATION: 1 view chest radiograph IMPRESSION: Prior comparison 06/29/2019. There is an endotracheal tube terminating 1.6 cm above the jesús. There is a nasogastric tube with the tip terminating below the diaphragm and off the [id number]. There are small lung volumes. Patchy areas of atelectasis are noted bilaterally. No pneumothorax, pleural effusion, or pulmonary edema. No focal consolidation. The heart size is normal. The aorta is mildly tortuous with atherosclerotic calcification noted at the aortic arch. Dictated by: Ananth Bar M.D. The radiology attending physician has personally reviewed this study, and had reviewed and/or edited this written report and agrees with it. Electronically signed by: Jason Tellez M.D. Roxanne Gomez QUEBRACHO TANNER IMG XR PROCEDURES Final R esult * Lactate, whole blood (06/30/2019 4:23 PM HOME SALES SERVICE PROFESSIONAL) Lactate, bld 1.8 0.7 - 2.0 mmol/L [facility] Blood specimen (specimen) 06/30/2019 4:23 PM HOME SALES SERVICE PROFESSIONAL 06/30/2019 4:31 PM HOME SALES SERVICE PROFESSIONAL Hilda GravesViraj Lord QUEBRACHO TANNER LAB BLOOD ORDERABLES Final Re sult Performing Organization Address [facility] de Phone Number [facility] [place] [address] * Protime-INR (06/30/2019 4:21 PM HOME SALES SERVICE PROFESSIONAL) Pathologist [facility] PT 12.8 8.6 - 13.0 sec [facility] INR 1.2 0.8 - 1.2 [facility] Comment: Interpretive data Oral anticoagulant therapeutic ranges: Venous thromboembolism prophylaxis or treatment: 2.0-3.0 CARDIOLOGY Standard range: 2.0-3.0 High-intensity range: 2.5-3.5 Refer to indication-specific guidelines for appropriate target ranges for prosthetic heart valve replacement. Current interpretive data was last revised on 2019. Blood specimen (specimen) 06/30/2019 4:21 PM HOME SALES SERVICE PROFESSIONAL 06/30/2019 4:31 PM HOME SALES SERVICE PROFESSIONAL Result [facility] Roxanne Gomez QUEBRACHO TANNER LAB BLOOD ORDERABLES Ellyn l Result Performing Organization Address [facility] de Phone Number [facility] [place] [address] * (ABNORMAL) aPTT (06/30/2019 4:21 PM HOME SALES SERVICE PROFESSIONAL) Pathologist [facility] aPTT 22(L) 25 - 37 sec [facility] Comment: Interpretive data Heparin therapeutic range: 60-90 seconds Range based on correlation with therapeutic heparin activity range of 0.3-0.7 units/ml. Current interpretive data was last revised on 2019. Blood specimen (specimen) 06/30/2019 4:21 PM HOME SALES SERVICE PROFESSIONAL 06/30/2019 4:31 PM HOME SALES SERVICE PROFESSIONAL us Roxanne Gomez QUEBRACHO TANNER LAB BLOOD ORDERABLES Ellyn adams Result Performing Organization Address [facility] Co de Phone Number [facility] [place] [address] * (ABNORMAL) CBC without differential (06/30/2019 4:21 PM HOME SALES SERVICE PROFESSIONAL) Pathologist [facility] WBC 17.5(H) 3.8 - 9.9 K/cumm [facility] Hgb 9.0(L) 11.9 - 15.5 g/dL [facility] Hct 27.7(L) 35.6 - 45.5 % [facility] Plt 189 150 - 400 K/cumm [facility] MPV 11.0 9.1 - 12.3 fL [facility] RBC 3.16(L) 3.90 - 5.20 M/cumm [facility] MCV 87.7 81.3 - 96.4 fL [facility] MCH 28.5 27.1 - 33.3 pg [facility] MCHC 32.5 32.3 - 35.7 g/dL [facility] RDW CV 18.0(H) 11.1 - 14.9 % [facility] RDW SD 57.1(H) 35.7 - 48.1 fL [facility] NRBC abs 0.13(H) 0.00 - 0.01 K/cumm [facility] Blood specimen (specimen) 06/30/2019 4:21 PM HOME SALES SERVICE PROFESSIONAL 06/30/2019 4:31 PM HOME SALES SERVICE PROFESSIONAL us Roxanne Gomez QUEBRACHO TANNER LAB BLOOD ORDERABLES Ellyn adams Result Performing Organization Address City/[facility]/ZIP Co de Phone Number [facility] [place] [address] * FL Fluoroscopy < 1 Hour (06/30/2019 2:51 PM HOME SALES SERVICE PROFESSIONAL) Narrative [facility] - 06/30/2019 2:52 PM HOME SALES SERVICE PROFESSIONAL The images from this study are not interpreted by Radiology. ??Please refer to the physician's procedure / OR operative note. Jacobo Shoemaker MD IMG FLUOROSCOPY PROCEDURES Final Result Performing Organization Address [facility] Co de Phone Number [email or web address] * Transfuse RBC (06/30/2019 2:16 PM HOME SALES SERVICE PROFESSIONAL) Blood specimen (specimen) Result [facility] Rui Mike MD BLOOD TRANSFUSION ORDERABLES F inal Result Performing Organization Address [facility] de Phone Number [facility] [place] [address] * (ABNORMAL) POCT platelet count and hematocrit (06/30/2019 1:28 PM HOME SALES SERVICE PROFESSIONAL) Hematocrit POC 23.1(L) 36.1 - 44.3 % [facility] Platelet POC 188 140 - 440 K/cumm [facility] Blood specimen (specimen) 06/30/2019 1:28 PM HOME SALES SERVICE PROFESSIONAL 06/30/2019 1:28 PM HOME SALES SERVICE PROFESSIONAL Result [facility] Dean Ritter MD LAB POCT ORDERABLES - DEV ICE Final Result Performing Organization Address [facility] de Phone Number [facility] [place] [address] * (ABNORMAL) POC Blood Gas and Chemistries, Venous - (06/30/2019 1:27 PM HOME SALES SERVICE PROFESSIONAL) pH, Rj POC 7.36 7.32 - 7.43 [facility] pCO2, rj POC 47 40 - 50 mmHg [facility] pO2, rj POC 43 mmHg [facility] Na, POC 138 135 - 145 mmol/L [facility] K POC 3.8 3.3 - 4.9 mmol/L [facility] Cl, POC 107 97 - 110 mmol/L [facility] Ionized Ca, POC 5.20(H) 4.50 - 5.10 mg/dL [facility] Glucose, POC 132 70 - 199 mg/dL [facility] Lactate, POC 1.4 0.7 - 2.2 mmol/L [facility] O2 Sat, Rj POC (Gorge) 74 % [facility] Base excess, POC 0.6 mmol/L [facility] HCO3, Rj POC 27 20 - 30 mmol/L [facility] Hct, POC 23.0(L) 36.3 - 45.3 % [facility] Total Hb, POC 7.7(L) 11.9 - 15.5 g/dL [facility] O2 Sat, Rj POC (Calc) 76 % [facility] Blood specimen (specimen) 06/30/2019 1:27 PM HOME SALES SERVICE PROFESSIONAL 06/30/2019 1:27 PM HOME SALES SERVICE PROFESSIONAL us Dean Ritter MD LAB POCT ORDERABLES - DEV ICE Final Result [facility] [place] [address] * (ABNORMAL) Differential, auto (06/30/2019 11:27 AM HOME SALES SERVICE PROFESSIONAL) Neutrophil abs 8.8(H) 1.7 - 6.5 K/cumm [facility] Imm gran abs 0.2(H) 0.0 - 0.1 K/cumm [facility] Lymphocyte abs 2.9 0.8 - 3.3 K/cumm [facility] Monocyte abs 1.8(H) 0.2 - 0.8 K/cumm [facility] Eosinophil abs 0.1 0.0 - 0.5 K/cumm [facility] Basophil abs 0.0 0.0 - 0.1 K/cumm [facility] Neutrophil pct 63.4 % [facility] Comment: Interpretive Data Percent cell count reference ranges are not reported, since discordance with absolute values may lead to misinterpretation of CBC data. Current Interpretive Data was last revised on 2017. Imm gran pct 1.5 % [facility] Comment: Interpretive Data Percent cell count reference ranges are not reported, since discordance with absolute values may lead to misinterpretation of CBC data. Current Interpretive Data was last revised on 2017. Lymphocyte pct 20.8 % [facility] Comment: Interpretive Data Percent cell count reference ranges are not reported, since discordance with absolute values may lead to misinterpretation of CBC data. Current Interpretive Data was last revised on 2017. Monocyte pct 13.1 % [facility] Comment: Interpretive Data Percent cell count reference ranges are not reported, since discordance with absolute values may lead to misinterpretation of CBC data. Current Interpretive Data was last revised on 2017. Eosinophil pct 0.9 % [facility] Comment: Interpretive Data Percent cell count reference ranges are not reported, since discordance with absolute values may lead to misinterpretation of CBC data. Current Interpretive Data was last revised on 2017. Basophil pct 0.3 % [facility] Comment: Interpretive Data Percent cell count reference ranges are not reported, since discordance with absolute values may lead to misinterpretation of CBC data. Current Interpretive Data was last revised on 2017. Blood specimen (specimen) 06/30/2019 11:27 AM HOME SALES SERVICE PROFESSIONAL 06/30/2019 11:44 AM HOME SALES SERVICE PROFESSIONAL us Hilda Lord NP LAB BLOOD ORDERABLES Final Re sult [facility] [place] [address] * (ABNORMAL) CBC with auto differential (06/30/2019 11:27 AM HOME SALES SERVICE PROFESSIONAL) WBC 14.0(H) 3.8 - 9.9 K/cumm [facility] Hgb 7.7(L) 11.9 - 15.5 g/dL [facility] Hct 24.0(L) 35.6 - 45.5 % [facility] Plt 166 150 - 400 K/cumm [facility] MPV 11.7 9.1 - 12.3 fL [facility] RBC 2.78(L) 3.90 - 5.20 M/cumm [facility] MCV 86.3 81.3 - 96.4 fL [facility] MCH 27.7 27.1 - 33.3 pg [facility] MCHC 32.1(L) 32.3 - 35.7 g/dL [facility] RDW CV 18.5(H) 11.1 - 14.9 % [facility] RDW SD 57.6(H) 35.7 - 48.1 fL [facility] NRBC abs 0.07(H) 0.00 - 0.01 K/cumm [facility] Blood specimen (specimen) 06/30/2019 11:27 AM HOME SALES SERVICE PROFESSIONAL 06/30/2019 11:44 AM HOME SALES SERVICE PROFESSIONAL us Hilda Lord NP LAB BLOOD ORDERABLES Final Re sult Performing Organization Address [facility] Co de Phone Number [facility] [place] [address] * Prepare RBC: 2 Units (06/30/2019 10:49 AM HOME SALES SERVICE PROFESSIONAL) Pathologist [facility] Product code [id number] [facility] Unit Number [id number] [facility] Product Blood Type APOS [facility] Dispense Status RETURNED [facility] Product code [id number] [facility] Unit Number [id number] [facility] Product Blood Type APOS [facility] Dispense Status PRESUMED TRANSFUSED [facility] Blood specimen (specimen) 06/30/2019 10:49 AM HOME SALES SERVICE PROFESSIONAL 06/30/2019 10:49 AM HOME SALES SERVICE PROFESSIONAL Narrative [facility] - 07/01/2019 9:12 AM HOME SALES SERVICE PROFESSIONAL Are special requirements needed? (all products are leukoreduced)->No Date required:-20190630 LRRBC # of [id number] Reasons:-Intra-op transfusion} us Rui Mike MD BLOOD BANK PRODUCT ORDERABLES Final Result Performing Organization Address [facility] Co de Phone Number [facility] [place] [address] * POCT glucose (06/30/2019 8:07 AM HOME SALES SERVICE PROFESSIONAL) Pathologist [facility] Glucose, POC 140 70 - 199 mg/dL [facility] Blood specimen (specimen) 06/30/2019 8:07 AM HOME SALES SERVICE PROFESSIONAL 06/30/2019 8:07 AM HOME SALES SERVICE PROFESSIONAL Dean Ritter MD LAB POCT ORDERABLES - DEV ICE Final Result [facility] [place] [address] * Critical Care (06/30/2019 6:51 AM HOME SALES SERVICE PROFESSIONAL) Narrative Roxanne Gomez NP - 06/30/2019 6:51 AM HOME SALES SERVICE PROFESSIONAL Roxanne Gomez NP ? 06/30/2019 ??5:18 PM Critical Care Performed by: Roxanne Gomez NP Authorized by: Roxanne Gomez NP CRITICAL CARE: ??Team: ??SICU BLUE ??Shift: ??AM ??Level of Billing: ??Subsequent Hospital Visit Level 3 ??My time spent with this patient was 75 minutes: Critical Provider Statement: I have seen and examined the patient on this day of service. I have reviewed and confirmed the history, physical exam, laboratory, and radiographic data as documented in the ICU note. I have reviewed and discussed my treatment plan with the patient's team and other medical/service consultant staff. This time was in addition to and separate from care provided by other practitioners on this day of service. ? I spent time reviewing and interpreting data from bedside monitors, laboratory results, and imaging, I spent time discussing the management of this critically ill patient with consultants and the medical staff and I spent time documenting in the medical record us Roxanne Gomez NP IN CLINIC/BEDSIDE ORDERAB LES Final Result * (ABNORMAL) CBC without differential (06/30/2019 4:35 AM HOME SALES SERVICE PROFESSIONAL) [facility] WBC 17.1(H) 3.8 - 9.9 K/cumm [facility] Hgb 8.0(L) 11.9 - 15.5 g/dL [facility] Hct 24.2(L) 35.6 - 45.5 % [facility] Plt 188 150 - 400 K/cumm [facility] MPV 11.4 9.1 - 12.3 fL [facility] RBC 2.87(L) 3.90 - 5.20 M/cumm [facility] MCV 84.3 81.3 - 96.4 fL [facility] MCH 27.9 27.1 - 33.3 pg [facility] MCHC 33.1 32.3 - 35.7 g/dL [facility] RDW CV 18.4(H) 11.1 - 14.9 % [facility] RDW SD 55.6(H) 35.7 - 48.1 fL [facility] NRBC abs 0.05(H) 0.00 - 0.01 K/cumm [facility] Blood specimen (specimen) 06/30/2019 4:35 AM HOME SALES SERVICE PROFESSIONAL 06/30/2019 4:52 AM HOME SALES SERVICE PROFESSIONAL Ina BILLINGSLEY LAB BLOOD ORDERABLES Ellyn l Result [facility] [place] [address] * POCT glucose (06/30/2019 3:36 AM HOME SALES SERVICE PROFESSIONAL) [facility] Glucose, POC 126 70 - 199 mg/dL [facility] Blood specimen (specimen) 06/30/2019 3:36 AM HOME SALES SERVICE PROFESSIONAL 06/30/2019 3:36 AM HOME SALES SERVICE PROFESSIONAL us Dean Ritter MD LAB POCT ORDERABLES - DEV ICE Final Result [facility] [place] [address] * Transfuse RBC (06/30/2019 3:07 AM HOME SALES SERVICE PROFESSIONAL) Blood specimen (specimen) Ina BILLINGSLEY BLOOD TRANSFUSION ORDERAB LES Final Result Performing Organization Address City/[facility]/ZIP Co de Phone Number [facility] [place] [address] * Transfuse RBC: 1 Units (06/30/2019 3:07 AM HOME SALES SERVICE PROFESSIONAL) Blood specimen (specimen) Ina BILLINGSLEY BLOOD TRANSFUSION ORDERAB LES Final Result * Prepare RBC: 1 Units (06/30/2019 12:45 AM HOME SALES SERVICE PROFESSIONAL) Product code [id number] [facility] Unit Number [id number] [facility] Product Blood Type APOS [facility] Dispense Status PRESUMED TRANSFUSED [facility] Blood specimen (specimen) 06/30/2019 12:45 AM HOME SALES SERVICE PROFESSIONAL 06/30/2019 12:45 AM HOME SALES SERVICE PROFESSIONAL Narrative [facility] - 07/01/2019 12:49 AM HOME SALES SERVICE PROFESSIONAL Are special requirements needed? (all products are leukoreduced)->No Date required:-20190630 LRRBC # of [id number] Reasons:-Hgb <7 g/dL} Ina BILLINGSLEY BLOOD BANK PRODUCT ORDERA BLES Final Result Performing Organization Address [facility] Co de Phone Number [facility] [place] [address] * POCT glucose (06/29/2019 11:46 PM HOME SALES SERVICE PROFESSIONAL) Glucose, POC 136 70 - 199 mg/dL [facility] Blood specimen (specimen) 06/29/2019 11:46 PM HOME SALES SERVICE PROFESSIONAL 06/29/2019 11:46 PM HOME SALES SERVICE PROFESSIONAL Dean Ritter MD LAB POCT ORDERABLES - DEV ICE Final Result Performing Organization Address City/[facility] Co de Phone Number [facility] [place] [address] * (ABNORMAL) CBC without differential (06/29/2019 11:23 PM HOME SALES SERVICE PROFESSIONAL) WBC 14.7(H) 3.8 - 9.9 K/cumm [facility] Hgb 6.5(L) 11.9 - 15.5 g/dL [facility] Hct 20.2(L) 35.6 - 45.5 % [facility] Plt 173 150 - 400 K/cumm [facility] MPV 11.4 9.1 - 12.3 fL [facility] RBC 2.39(L) 3.90 - 5.20 M/cumm [facility] MCV 84.5 81.3 - 96.4 fL [facility] MCH 27.2 27.1 - 33.3 pg [facility] MCHC 32.2(L) 32.3 - 35.7 g/dL [facility] RDW CV 20.6(H) 11.1 - 14.9 % [facility] RDW SD 63.5(H) 35.7 - 48.1 fL [facility] NRBC abs 0.04(H) 0.00 - 0.01 K/cumm [facility] Blood specimen (specimen) 06/29/2019 11:23 PM HOME SALES SERVICE PROFESSIONAL 06/29/2019 11:40 PM HOME SALES SERVICE PROFESSIONAL us Ina BILLINGSLEY LAB BLOOD ORDERABLES Ellyn l Result Performing Organization Address City/[facility]/ZIP Co de Phone Number [facility] [place] [address] * Phosphorus (06/29/2019 10:35 PM HOME SALES SERVICE PROFESSIONAL) Phosphorus, pl 3.5 2.3 - 4.5 mg/dL [facility] Blood specimen (specimen) 06/29/2019 10:35 PM HOME SALES SERVICE PROFESSIONAL 06/29/2019 10:51 PM HOME SALES SERVICE PROFESSIONAL us Dean Ritter MD LAB BLOOD ORDERABLES Ellyn l Result [facility] [place] [address] * (ABNORMAL) Differential, auto (06/29/2019 10:35 PM HOME SALES SERVICE PROFESSIONAL) Neutrophil abs 8.8(H) 1.7 - 6.5 K/cumm [facility] Imm gran abs 0.2(H) 0.0 - 0.1 K/cumm [facility] Lymphocyte abs 4.7(H) 0.8 - 3.3 K/cumm [facility] Monocyte abs 1.6(H) 0.2 - 0.8 K/cumm [facility] Eosinophil abs 0.1 0.0 - 0.5 K/cumm [facility] Basophil abs 0.0 0.0 - 0.1 K/cumm [facility] Neutrophil pct 57.3 % [facility] Comment: Interpretive Data Percent cell count reference ranges are not reported, since discordance with absolute values may lead to misinterpretation of CBC data. Current Interpretive Data was last revised on 2017. Imm gran pct 1.2 % [facility] Comment: Interpretive Data Percent cell count reference ranges are not reported, since discordance with absolute values may lead to misinterpretation of CBC data. Current Interpretive Data was last revised on 2017. Lymphocyte pct 30.8 % [facility] Comment: Interpretive Data Percent cell count reference ranges are not reported, since discordance with absolute values may lead to misinterpretation of CBC data. Current Interpretive Data was last revised on 2017. Monocyte pct 10.1 % [facility] Comment: Interpretive Data Percent cell count reference ranges are not reported, since discordance with absolute values may lead to misinterpretation of CBC data. Current Interpretive Data was last revised on 2017. Eosinophil pct 0.4 % [facility] Comment: Interpretive Data Percent cell count reference ranges are not reported, since discordance with absolute values may lead to misinterpretation of CBC data. Current Interpretive Data was last revised on 2017. Basophil pct 0.2 % [facility] Comment: Interpretive Data Percent cell count reference ranges are not reported, since discordance with absolute values may lead to misinterpretation of CBC data. Current Interpretive Data was last revised on 2017. Blood specimen (specimen) 06/29/2019 10:35 PM HOME SALES SERVICE PROFESSIONAL 06/29/2019 10:50 PM HOME SALES SERVICE PROFESSIONAL Hilda Hang Lord NP LAB BLOOD ORDERABLES Final Re sult Performing Organization Address [facility] Co de Phone Number [facility] [place] [address] * Magnesium (06/29/2019 10:35 PM HOME SALES SERVICE PROFESSIONAL) Pathologist [facility] Magnesium 1.7 1.4 - 2.5 mg/dL [facility] Blood specimen (specimen) 06/29/2019 10:35 PM HOME SALES SERVICE PROFESSIONAL 06/29/2019 10:51 PM HOME SALES SERVICE PROFESSIONAL Hilda Hang Lord NP LAB BLOOD ORDERABLES Final Re sult Performing Organization Address [facility] de Phone Number [facility] [place] [address] * (ABNORMAL) Basic metabolic panel (06/29/2019 10:35 PM HOME SALES SERVICE PROFESSIONAL) [facility] Sodium 139 135 - 145 mmol/L [facility] Potassium, pl 4.6 3.3 - 4.9 mmol/L [facility] Chloride 105 97 - 110 mmol/L [facility] CO2 30 22 - 32 mmol/L [facility] Anion gap 4 2 - 15 mmol/L [facility] BUN 22 8 - 25 mg/dL [facility] Creatinine 1.14(H) 0.60 - 1.10 mg/dL [facility] Glucose 145 70 - 199 mg/dL [facility] Comment: Interpretive Data Fasting glucose >/= [...] interpretive data was last revised 2017. Calcium 8.3(L) 8.5 - 10.3 mg/dL [facility] Blood specimen (specimen) 06/29/2019 10:35 PM HOME SALES SERVICE PROFESSIONAL 06/29/2019 10:51 PM HOME SALES SERVICE PROFESSIONAL Hilda Lord QUEBRACHO TANNER LAB BLOOD ORDERABLES Final Re sult [facility] [place] [address] * (ABNORMAL) CBC with auto differential (06/29/2019 10:35 PM HOME SALES SERVICE PROFESSIONAL) WBC 15.3(H) 3.8 - 9.9 K/cumm [facility] Hgb 6.4(C) 11.9 - 15.5 g/dL [facility] Comment:Critical result call ed to and read back by HERMILO NGUYEN RN on 06 29 2019 at 2302 to Alexys Powers. Hct 19.9(L) 35.6 - 45.5 % [facility] Plt 178 150 - 400 K/cumm [facility] MPV 10.8 9.1 - 12.3 fL [facility] RBC 2.36(L) 3.90 - 5.20 M/cumm [facility] MCV 84.3 81.3 - 96.4 fL [facility] MCH 27.1 27.1 - 33.3 pg [facility] MCHC 32.2(L) 32.3 - 35.7 g/dL [facility] RDW CV 20.6(H) 11.1 - 14.9 % [facility] RDW SD 62.4(H) 35.7 - 48.1 fL [facility] NRBC abs 0.05(H) 0.00 - 0.01 K/cumm [facility] Blood specimen (specimen) 06/29/2019 10:35 PM HOME SALES SERVICE PROFESSIONAL 06/29/2019 10:50 PM HOME SALES SERVICE PROFESSIONAL Hilda Lord NP LAB BLOOD ORDERABLES Final Re sult Performing Organization Address [facility] Systems/[facility] Co de Phone Number [facility] [place] [address] * POCT glucose (06/29/2019 9:17 PM HOME SALES SERVICE PROFESSIONAL) Glucose, POC 128 70 - 199 mg/dL [facility] Blood specimen (specimen) 06/29/2019 9:17 PM HOME SALES SERVICE PROFESSIONAL 06/29/2019 9:17 PM HOME SALES SERVICE PROFESSIONAL Dean Ritter MD LAB POCT ORDERABLES - DEV ICE Final Result Performing Organization Address [facility] [place] [address] * POCT glucose (06/29/2019 7:54 PM HOME SALES SERVICE PROFESSIONAL) Glucose, POC 144 70 - 199 mg/dL [facility] Blood specimen (specimen) 06/29/2019 7:54 PM HOME SALES SERVICE PROFESSIONAL 06/29/2019 7:54 PM HOME SALES SERVICE PROFESSIONAL Dean Ritter MD LAB POCT ORDERABLES - DEV ICE Final Result Performing Organization Address [facility] [place] [address] * Critical Care (06/29/2019 7:35 PM HOME SALES SERVICE PROFESSIONAL) Narrative Ina Russo MD - 06/29/2019 7:35 PM HOME SALES SERVICE PROFESSIONAL JOSE CRUZ Hinton ? 06/30/2019 ??7:06 AM Critical Care Performed by: JOSE CRUZ Hinton Authorized by: JOSE CRUZ Hinton CRITICAL CARE: ??Team: ??SICU BLUE ??Shift: ??PM ??Level of Billing: ??Critical Care ??My time spent with this patient was 75 minutes: Critical Provider Statement: I have seen and examined the patient on this day of service. I have reviewed and confirmed the history, physical exam, laboratory and radiologic data as documented in the signed ICU note. I have reviewed and discussed my treatment plan with the ICU team and other medical/service consultant staff, making frequent assessments and decisions regarding this patient's complex medical care. Critical Care time was exclusive of time spent performing separately billed procedures, treating other patients, and teaching. This time was in addition to and separate from critical care provided by other practitioners in my group on this day of service. Critical Care was necessary to treat or prevent imminent or life-threatening deterioration of the following conditions: ? Acute pain/acute postoperative pain and Agitation requiring sedation ?? Acute undifferentiated respiratory failure ?? Acute kidney injury ?? Acute blood loss anemia ?? Sepsis ?? Severe long-bone fracture ??This time was spent by me doing the following: ? Acute pain control and Active titration of continuous sedation ?? Active and frequent reassessment of respiratory status and oxygen requirements and Invasive ventilator management, reassessment, and titration ?? Active and frequent monitoring of intake/output and volumen status ?? Transfusion of blood products ?? Empiric broad coverage antibiotics Ina [facility] IN CLINIC/BEDSIDE ORDERAB LES Final Result * POCT glucose (06/29/2019 7:13 PM HOME SALES SERVICE PROFESSIONAL) Glucose, POC 146 70 - 199 mg/dL [facility] Blood specimen (specimen) 06/29/2019 7:13 PM HOME SALES SERVICE PROFESSIONAL 06/29/2019 7:13 PM HOME SALES SERVICE PROFESSIONAL us Dean Ritter MD LAB POCT ORDERABLES - DEV ICE Final Result [facility] Department [place] [address] * XR Chest 1 View (06/29/2019 6:40 PM HOME SALES SERVICE PROFESSIONAL) Anatomical Region Laterality Modality Body, Chest N/A Computed Radiogr aphy 06/30/2019 8:40 AM HOME SALES SERVICE PROFESSIONAL Impressions 06/30/2019 8:41 AM HOME SALES SERVICE PROFESSIONAL Comparison is made chest radiograph dated 06/29/2019 at 12:31 AM. ??The endotracheal tube terminates in the midthoracic trachea. ??A gastric tube courses below the diaphragm. ??The cardiomediastinal silhouette is unchanged given differences in patient rotation. ??There are small lung volumes with bibasilar atelectasis. ??No pneumothorax or pleural effusion. Dictated by: Jairo Bo M.D. The radiology attending physician has personally reviewed this study, and had reviewed and/or edited this written report and agrees with it. Electronically signed by: Radha Jay M.D. Narrative 06/30/2019 8:41 AM HOME SALES SERVICE PROFESSIONAL EXAMINATION: 1 view chest radiograph Procedure Note Radha Jay MD - 06/30/2019 EXAMINATION: 1 view chest radiograph IMPRESSION: Comparison is made chest radiograph dated 06/29/2019 at 12:31 AM. The endotracheal tube terminates in the midthoracic trachea. A gastric tube courses below the diaphragm. The cardiomediastinal silhouette is unchanged given differences in patient rotation. There are small lung volumes with bibasilar atelectasis. No pneumothorax or pleural effusion. Dictated by: Jairo Bo M.D. The radiology attending physician has personally reviewed this study, and had reviewed and/or edited this written report and agrees with it. Electronically signed by: Radha Jay M.D. Hilda Lord [facility] XR PROCEDURES Final Resul t * POCT glucose (06/29/2019 5:45 PM HOME SALES SERVICE PROFESSIONAL) [facility] Signature Glucose, POC 133 70 - 199 mg/dL [facility] Blood specimen (specimen) 06/29/2019 5:45 PM HOME SALES SERVICE PROFESSIONAL 06/29/2019 5:45 PM HOME SALES SERVICE PROFESSIONAL Dean Ritter MD LAB POCT ORDERABLES - DEV ICE Final Result [facility] Department [place] [address] * POCT glucose (06/29/2019 5:44 PM HOME SALES SERVICE PROFESSIONAL) Glucose, POC 166 70 - 199 mg/dL [facility] Blood specimen (specimen) 06/29/2019 5:44 PM HOME SALES SERVICE PROFESSIONAL 06/29/2019 5:44 PM HOME SALES SERVICE PROFESSIONAL Dean Ritter MD LAB POCT ORDERABLES - DEV ICE Final Result Performing Organization Address [facility] de Phone Number [facility] [place] [address] * Gentamicin level, trough (06/29/2019 4:59 PM HOME SALES SERVICE PROFESSIONAL) [facility] Gentamicin trough 1.6 0.1 - 2.0 mcg/mL [facility] Comment: Interpretive Data Therapeutic Range: ??UTI/GPC synergy: ?? 0-2 mcg/mL ??Systemic illness: ??0-2 mcg/mL ??Sepsis: ?0-2 mcg/mL UTI/GPC synergy refers to the synergistic effect of aminoglycosides with other antibiotics in treating urinary tract infections caused by gram positive cocci (e.g. Enterococcus). Current interpretive data was last revised on 05. Blood specimen (specimen) 06/29/2019 4:59 PM HOME SALES SERVICE PROFESSIONAL 06/29/2019 5:08 PM HOME SALES SERVICE PROFESSIONAL Luz Driscoll DNP LAB BLOOD ORDERABLES Final R esult Performing Organization Address [facility] de Phone Number [facility] [place] [address] * POCT glucose (06/29/2019 4:58 PM HOME SALES SERVICE PROFESSIONAL) Glucose, POC 113 70 - 199 mg/dL [facility] Blood specimen (specimen) 06/29/2019 4:58 PM HOME SALES SERVICE PROFESSIONAL 06/29/2019 4:58 PM HOME SALES SERVICE PROFESSIONAL us Dean Ritter MD LAB POCT ORDERABLES - DEV ICE Final Result Performing Organization Address [facility] Co de Phone Number [facility] [place] [address] * (ABNORMAL) POCT glucose (06/29/2019 4:57 PM HOME SALES SERVICE PROFESSIONAL) Glucose, POC 58(L) 70 - 199 mg/dL [facility] Blood specimen (specimen) 06/29/2019 4:57 PM HOME SALES SERVICE PROFESSIONAL 06/29/2019 4:57 PM HOME SALES SERVICE PROFESSIONAL us Dean Ritter MD LAB POCT ORDERABLES - DEV ICE Final Result Performing Organization Address [facility] de Phone Number [facility] [place] [address] * POCT glucose (06/29/2019 4:00 PM HOME SALES SERVICE PROFESSIONAL) Glucose, POC 112 70 - 199 mg/dL [facility] Blood specimen (specimen) 06/29/2019 4:00 PM HOME SALES SERVICE PROFESSIONAL 06/29/2019 4:00 PM HOME SALES SERVICE PROFESSIONAL us Dean Ritter MD LAB POCT ORDERABLES - DEV ICE Final Result Performing Organization Address [facility] de Phone Number [facility] Department [place] [address] * POCT glucose (06/29/2019 1:58 PM HOME SALES SERVICE PROFESSIONAL) Glucose, POC 121 70 - 199 mg/dL [facility] Blood specimen (specimen) 06/29/2019 1:58 PM HOME SALES SERVICE PROFESSIONAL 06/29/2019 1:58 PM HOME SALES SERVICE PROFESSIONAL us Dean Ritter MD LAB POCT ORDERABLES - DEV ICE Final Result Performing Organization Address City/[facility] [place] [address] * POCT glucose (06/29/2019 1:15 PM HOME SALES SERVICE PROFESSIONAL) Glucose, POC 133 70 - 199 mg/dL [facility] Blood specimen (specimen) 06/29/2019 1:15 PM HOME SALES SERVICE PROFESSIONAL 06/29/2019 1:15 PM HOME SALES SERVICE PROFESSIONAL Dean Ritter MD LAB POCT ORDERABLES - DEV ICE Final Result Performing Organization Address City/[facility]/[place]IP [place] [address] * POCT glucose (06/29/2019 12:07 PM HOME SALES SERVICE PROFESSIONAL) Glucose, POC 138 70 - 199 mg/dL [facility] Blood specimen (specimen) 06/29/2019 12:07 PM HOME SALES SERVICE PROFESSIONAL 06/29/2019 12:07 PM HOME SALES SERVICE PROFESSIONAL Dean Ritter MD LAB POCT ORDERABLES - DEV ICE Final Result Performing Organization Address City/[facility]/[place] [address] * POCT glucose (06/29/2019 11:13 AM HOME SALES SERVICE PROFESSIONAL) Glucose, POC 116 70 - 199 mg/dL [facility] Blood specimen (specimen) 06/29/2019 11:13 AM HOME SALES SERVICE PROFESSIONAL 06/29/2019 11:13 AM HOME SALES SERVICE PROFESSIONAL us Dean Ritter MD LAB POCT ORDERABLES - [place] [address] * POCT glucose (06/29/2019 10:05 AM HOME SALES SERVICE PROFESSIONAL) Glucose, POC 113 70 - 199 mg/dL [facility] Blood specimen (specimen) 06/29/2019 10:05 AM HOME SALES SERVICE PROFESSIONAL 06/29/2019 10:05 AM HOME SALES SERVICE PROFESSIONAL us Dean Ritter MD LAB POCT ORDERABLES - DEV ICE Final Result [facility] [place] [address] * [place] ARTL CATHJ/CANNULJ MNTR/TRANSFUSION SPX PRQ (06/29/2019 9:16 AM HOME SALES SERVICE PROFESSIONAL) Narrative Ina Rusos MD - 06/29/2019 9:16 AM HOME SALES SERVICE PROFESSIONAL Ina Russo MD ? 06/30/2019 ??5:08 AM Arterial Line Insertion Date/Time: 06/29/2019 9:17 AM Performed by: Denis Copeland MD Authorized by: Denis Copeland MD [place] Protocol: RN Notified of Procedure: yes ?? Informed consent: ??Unable to obtain due to emergent status Patient's stated name/ matches armband: ??Patient unable to verbalize - armband matched to name and within medical record Consent form signed, dated, timed; matches correct patient, intended procedure and site: ??No consent form due to emergent status Imaging: ??N/a Lab/Diag test results: ??N/a Supplies, devices and special equipment are available: yes ?? Site/side marked: yes Immediately prior to the procedure a time out was called: a verbal verification by the procedure participants confirmed correct patient identity, correct site/side marked and visible (if applicable); agreement on procedure to be done; and correct patient positioning ?? Indications: hemodynamic monitoring ?? Location: ??Left radial Anesthesia: ??Local infiltration Local anesthetic: ??Lidocaine 1% Patient skin preparation: chlorhexidine ?? Ultrasound guidance: ??Sterile probe cover used, used for site marking, used for needle insertion and landmarks identified Patient preparation: ??Cap, sterile probe cover, gloves, gown, handwashing, towels and mask Damir's test normal?: Yes ?? Catheter gauge: ??20 Single percutaneous needle puncture: No ?? Seldinger technique used: Yes ?? Number of attempts: ??2 Placement confirmed with arterial waveform: Yes ?? Post-procedure: ??Line sutured, dressing applied and securement device afixed Post-procedure CMS: ??Unchanged Patient tolerance: ??Patient tolerated the procedure well with no immediate complications Complications: no complications noted during insertion ?? Post Procedure Debrief: All guidewires, needles, sponges or other items are accounted for: yes ?? Any special post procedure monitoring, testing or other considerations: n/a ?? All specimens identified, labeled and matched to patient identification: n/a ?? Responsible democrat for transporting specimen(s) to lab determined: n/a ?? Denis Copeland MD IV THERAPY ORDERABLES Ellyn l Result * POCT glucose (06/29/2019 9:06 AM HOME SALES SERVICE PROFESSIONAL) Glucose, POC 130 70 - 199 mg/dL [facility] Blood specimen (specimen) 06/29/2019 9:06 AM HOME SALES SERVICE PROFESSIONAL 06/29/2019 9:06 AM HOME SALES SERVICE PROFESSIONAL Result [facility] Dean Ritter MD LAB POCT ORDERABLES - DEV ICE Final Result Performing Organization Address [facility] de Phone Number [facility] Department [place] [address] * POCT glucose (06/29/2019 8:05 AM HOME SALES SERVICE PROFESSIONAL) Glucose, POC 134 70 - 199 mg/dL [facility] Blood specimen (specimen) 06/29/2019 8:05 AM HOME SALES SERVICE PROFESSIONAL 06/29/2019 8:05 AM HOME SALES SERVICE PROFESSIONAL Dean Ritter MD LAB POCT ORDERABLES - DEV ICE Final Result Performing Organization Address [facility] de Phone Number [facility] [place] [address] * Critical Care (06/29/2019 7:33 AM HOME SALES SERVICE PROFESSIONAL) Narrative Hair, Glory Joann, MD - 06/29/2019 7:33 AM HOME SALES SERVICE PROFESSIONAL Luz Driscoll NP ? 06/29/2019 ??4:19 PM Critical Care Performed by: Luz Driscoll NP Authorized by: Luz Driscoll NP CRITICAL CARE: ??Team: ??SICU BLUE ??Shift: ??AM ??Level of Billing: ??Critical Care ??My time spent with this patient was 95 minutes: Critical Provider Statement: I have seen and examined the patient on this day of service. I have reviewed and confirmed the history, physical exam, laboratory and radiologic data as documented in the signed ICU note. I have reviewed and discussed my treatment plan with the ICU team and other medical/service consultant staff, making frequent assessments and decisions regarding this patient's complex medical care. Critical Care time was exclusive of time spent performing separately billed procedures, treating other patients, and teaching. This time was in addition to and separate from critical care provided by other practitioners in my group on this day of service. Critical Care was necessary to treat or prevent imminent or life-threatening deterioration of the following conditions: ? Acute pain/acute postoperative pain and Agitation requiring sedation ?? Threatened airway and Acute respiratory insufficiency ?? Acute blood loss anemia ??This time was spent by me doing the following: ? Acute pain control and Active titration of continuous sedation ?? Active and frequent reassessment of respiratory status and oxygen requirements and Invasive ventilator management, reassessment, and titration ?? I spent time reviewing and interpreting data from bedside monitors, laboratory results, and imaging, I spent time discussing the management of this critically ill patient with consultants and the medical staff and I spent time documenting in the medical record us Luz Driscoll DNP IN CLINIC/BEDSIDE ORDERABLES Final Result * POCT glucose (06/29/2019 7:02 AM HOME SALES SERVICE PROFESSIONAL) Glucose, POC 169 70 - 199 mg/dL [facility] Blood specimen (specimen) 06/29/2019 7:02 AM HOME SALES SERVICE PROFESSIONAL 06/29/2019 7:02 AM HOME SALES SERVICE PROFESSIONAL us Dean Ritter MD LAB POCT ORDERABLES - DEV ICE Final Result [facility] [place] [address] * POCT glucose (06/29/2019 6:15 AM HOME SALES SERVICE PROFESSIONAL) Pathologist [facility] Glucose, POC 170 70 - 199 mg/dL [facility] Blood specimen (specimen) 06/29/2019 6:15 AM HOME SALES SERVICE PROFESSIONAL 06/29/2019 6:15 AM HOME SALES SERVICE PROFESSIONAL us Dean Ritter MD LAB POCT ORDERABLES - DEV ICE Final Result Performing Organization Address [facility] Co de Phone Number [facility] [place] [address] * (ABNORMAL) Differential, auto (06/29/2019 5:07 AM HOME SALES SERVICE PROFESSIONAL) [facility] Neutrophil abs 15.2(H) 1.7 - 6.5 K/cumm [facility] Imm gran abs 0.4(H) 0.0 - 0.1 K/cumm [facility] Lymphocyte abs 3.5(H) 0.8 - 3.3 K/cumm [facility] Monocyte abs 1.8(H) 0.2 - 0.8 K/cumm [facility] Eosinophil abs 0.0 0.0 - 0.5 K/cumm [facility] Basophil abs 0.0 0.0 - 0.1 K/cumm [facility] Neutrophil pct 72.7 % [facility] Comment: Interpretive Data Percent cell count reference ranges are not reported, since discordance with absolute values may lead to misinterpretation of CBC data. Current Interpretive Data was last revised on 2017. Imm gran pct 2.1 % [facility] Comment: Interpretive Data Percent cell count reference ranges are not reported, since discordance with absolute values may lead to misinterpretation of CBC data. Current Interpretive Data was last revised on 2017. Lymphocyte pct 16.5 % [facility] Comment: Interpretive Data Percent cell count reference ranges are not reported, since discordance with absolute values may lead to misinterpretation of CBC data. Current Interpretive Data was last revised on 2017. Monocyte pct 8.4 % [facility] Comment: Interpretive Data Percent cell count reference ranges are not reported, since discordance with absolute values may lead to misinterpretation of CBC data. Current Interpretive Data was last revised on 2017. Eosinophil pct 0.1 % [facility] Comment: Interpretive Data Percent cell count reference ranges are not reported, since discordance with absolute values may lead to misinterpretation of CBC data. Current Interpretive Data was last revised on 2017. Basophil pct 0.2 % [facility] Comment: Interpretive Data Percent cell count reference ranges are not reported, since discordance with absolute values may lead to misinterpretation of CBC data. Current Interpretive Data was last revised on 2017. Blood specimen (specimen) 06/29/2019 5:07 AM HOME SALES SERVICE PROFESSIONAL 06/29/2019 5:27 AM HOME SALES SERVICE PROFESSIONAL Brittany Serrano [facility] LAB BLOOD ORDERABLES Final Res ult Performing Organization Address City/[facility]/ZIP Co de Phone Number [facility] [place] [address] * (ABNORMAL) Lactate, whole blood (06/29/2019 5:07 AM HOME SALES SERVICE PROFESSIONAL) Pathologist [facility] Lactate, bld 3.9(H) 0.7 - 2.0 mmol/L [facility] Blood specimen (specimen) 06/29/2019 5:07 AM HOME SALES SERVICE PROFESSIONAL 06/29/2019 5:25 AM HOME SALES SERVICE PROFESSIONAL Brittany Serrano [facility] LAB BLOOD ORDERABLES Final Res ult [facility] [place] [address] * (ABNORMAL) CBC with auto differential (06/29/2019 5:07 AM HOME SALES SERVICE PROFESSIONAL) Pathologist [facility] WBC 21.0(H) 3.8 - 9.9 K/cumm [facility] Hgb 7.8(L) 11.9 - 15.5 g/dL [facility] Hct 24.5(L) 35.6 - 45.5 % [facility] Plt 249 150 - 400 K/cumm [facility] MPV 11.4 9.1 - 12.3 fL [facility] RBC 2.88(L) 3.90 - 5.20 M/cumm [facility] MCV 85.1 81.3 - 96.4 fL [facility] MCH 27.1 27.1 - 33.3 pg [facility] MCHC 31.8(L) 32.3 - 35.7 g/dL [facility] RDW CV 20.4(H) 11.1 - 14.9 % [facility] RDW SD 61.4(H) 35.7 - 48.1 fL [facility] NRBC abs 0.05(H) 0.00 - 0.01 K/cumm [facility] Blood specimen (specimen) 06/29/2019 5:07 AM HOME SALES SERVICE PROFESSIONAL 06/29/2019 5:27 AM HOME SALES SERVICE PROFESSIONAL Brittany Serrano [facility] LAB BLOOD ORDERABLES Final Res ult [facility] [place] [address] * POCT glucose (06/29/2019 5:04 AM HOME SALES SERVICE PROFESSIONAL) Glucose, POC 166 70 - 199 mg/dL [facility] Blood specimen (specimen) 06/29/2019 5:04 AM HOME SALES SERVICE PROFESSIONAL 06/29/2019 5:04 AM HOME SALES SERVICE PROFESSIONAL us Dean Ritter MD LAB POCT ORDERABLES - DEV ICE Final Result [facility] [place] [address] * POCT glucose (06/29/2019 3:57 AM HOME SALES SERVICE PROFESSIONAL) Glucose, POC 187 70 - 199 mg/dL [facility] Blood specimen (specimen) 06/29/2019 3:57 AM HOME SALES SERVICE PROFESSIONAL 06/29/2019 3:57 AM HOME SALES SERVICE PROFESSIONAL us Dean Ritter MD LAB POCT ORDERABLES - DEV ICE Final Result Performing Organization Address [facility] Co de Phone Number [facility] [place] [address] * POCT glucose (06/29/2019 3:01 AM HOME SALES SERVICE PROFESSIONAL) Glucose, POC 192 70 - 199 mg/dL [facility] Blood specimen (specimen) 06/29/2019 3:01 AM HOME SALES SERVICE PROFESSIONAL 06/29/2019 3:01 AM HOME SALES SERVICE PROFESSIONAL us Dean Ritter MD LAB POCT ORDERABLES - DEV ICE Final Result Performing Organization Address [facility] de Phone Number [facility] [place] [address] * POCT glucose (06/29/2019 1:54 AM HOME SALES SERVICE PROFESSIONAL) Glucose, POC 194 70 - 199 mg/dL [facility] Blood specimen (specimen) 06/29/2019 1:54 AM HOME SALES SERVICE PROFESSIONAL 06/29/2019 1:54 AM HOME SALES SERVICE PROFESSIONAL us Dean Ritter MD LAB POCT ORDERABLES - DEV ICE Final Result Performing Organization Address [facility] [place] [address] * (ABNORMAL) POCT glucose (06/29/2019 1:16 AM HOME SALES SERVICE PROFESSIONAL) Glucose, POC 205(H) 70 - 199 mg/dL [facility] Blood specimen (specimen) 06/29/2019 1:16 AM HOME SALES SERVICE PROFESSIONAL 06/29/2019 1:16 AM HOME SALES SERVICE PROFESSIONAL us Dean Ritter MD LAB POCT ORDERABLES - DEV ICE Final Result [facility] [place] [address] * XR Chest 1 View (06/29/2019 12:33 AM HOME SALES SERVICE PROFESSIONAL) Anatomical Region Laterality Modality Body, Chest N/A Computed Radiogr aphy 06/29/2019 10:4 1 AM HOME SALES SERVICE PROFESSIONAL Impressions 06/29/2019 11:10 AM HOME SALES SERVICE PROFESSIONAL Comparison is made to 06/28/2018 6:43 PM. Endotracheal tip is 2.8 cm above the jesús. ??Gastric tube tip passing into diaphragm with tip collimated off the study. Improving mild bibasilar atelectasis. ??No pulmonary edema or pneumonic consolidation. ??No effusion or pneumothorax. ??Heart size and visible contours are unchanged accounting for patient rotation. Dictated by: Vic Terrell The radiology attending physician has personally reviewed this study, and had reviewed and/or edited this written report and agrees with it. Electronically signed by: Jason Tellez M.D. Narrative 06/29/2019 11:10 AM HOME SALES SERVICE PROFESSIONAL EXAMINATION: 1 view chest radiograph Procedure Note Jason Tellez MD - 06/29/2019 EXAMINATION: 1 view chest radiograph IMPRESSION: Comparison is made to 06/28/2018 6:43 PM. Endotracheal tip is 2.8 cm above the jesús. Gastric tube tip passing into diaphragm with tip collimated off the study. Improving mild bibasilar atelectasis. No pulmonary edema or pneumonic consolidation. No effusion or pneumothorax. Heart size and visible contours are unchanged accounting for patient rotation. Dictated by: Vic Terrell The radiology attending physician has personally reviewed this study, and had reviewed and/or edited this written report and agrees with it. Electronically signed by: Jason Tellez M.D. us Brittany Serrano [facility] IMG XR PROCEDURES Final Result * POCT glucose (06/29/2019 12:02 AM HOME SALES SERVICE PROFESSIONAL) Pathologist [facility] Glucose, POC 195 70 - 199 mg/dL [facility] Blood specimen (specimen) 06/29/2019 12:02 AM HOME SALES SERVICE PROFESSIONAL 06/29/2019 12:02 AM HOME SALES SERVICE PROFESSIONAL Dean Ritter MD LAB POCT ORDERABLES - DEV ICE Final Result Performing Organization Address [facility] de Phone Number [facility] [place] [address] * (ABNORMAL) Valproic acid level, total (06/29/2019 12:00 AM HOME SALES SERVICE PROFESSIONAL) [facility] Valproic Acid <15.0(L) 50.0 - 100.0 mcg/mL [facility] Comment: Interpretive Data Therapeutic or toxic effects of anticonvulsant drugs may occur at different concentrations in different patients and the correlation between dose and clinical effect must be evaluated individually. Current interpretative data was last revised on 13. Blood specimen (specimen) 06/29/2019 06/29/2019 12:26 AM HOME SALES SERVICE PROFESSIONAL Dean Ritter MD LAB BLOOD ORDERABLES Ellyn l Result Performing Organization Address [facility] de Phone Number [facility] [place] [address] * (ABNORMAL) Differential, auto (06/29/2019 12:00 AM HOME SALES SERVICE PROFESSIONAL) Pathologist [facility] Neutrophil abs 16.5(H) 1.7 - 6.5 K/cumm [facility] Imm gran abs 0.6(H) 0.0 - 0.1 K/cumm [facility] Lymphocyte abs 2.7 0.8 - 3.3 K/cumm [facility] Monocyte abs 1.4(H) 0.2 - 0.8 K/cumm [facility] Eosinophil abs 0.1 0.0 - 0.5 K/cumm [facility] Basophil abs 0.1 0.0 - 0.1 K/cumm [facility] Neutrophil pct 77.7 % [facility] Comment: Interpretive Data Percent cell count reference ranges are not reported, since discordance with absolute values may lead to misinterpretation of CBC data. Current Interpretive Data was last revised on 2017. Imm gran pct 2.6 % [facility] Comment: Interpretive Data Percent cell count reference ranges are not reported, since discordance with absolute values may lead to misinterpretation of CBC data. Current Interpretive Data was last revised on 2017. Lymphocyte pct 12.7 % [facility] Comment: Interpretive Data Percent cell count reference ranges are not reported, since discordance with absolute values may lead to misinterpretation of CBC data. Current Interpretive Data was last revised on 2017. Monocyte pct 6.4 % [facility] Comment: Interpretive Data Percent cell count reference ranges are not reported, since discordance with absolute values may lead to misinterpretation of CBC data. Current Interpretive Data was last revised on 2017. Eosinophil pct 0.3 % [facility] Comment: Interpretive Data Percent cell count reference ranges are not reported, since discordance with absolute values may lead to misinterpretation of CBC data. Current Interpretive Data was last revised on 2017. Basophil pct 0.3 % [facility] Comment: Interpretive Data Percent cell count reference ranges are not reported, since discordance with absolute values may lead to misinterpretation of CBC data. Current Interpretive Data was last revised on 2017. Blood specimen (specimen) 06/29/2019 06/29/2019 12:29 AM HOME SALES SERVICE PROFESSIONAL Brittany Serrano [facility] TANNER LAB BLOOD ORDERABLES Final Res ult [facility] [place] [address] * Infection Prevention MRSA Only (Staphylococcus aureus) Culture Nasal (06/29/2019 12:00 AM HOME SALES SERVICE PROFESSIONAL) Report Final Report: Negative [facility] Nasal 06/29/2019 06/29/2019 2:0 3 AM HOME SALES SERVICE PROFESSIONAL Narrative [facility] - 06/30/2019 8:01 AM HOME SALES SERVICE PROFESSIONAL Testing performed by [facility] ([phone]). us Brittany Serrano NP LAB MICROBIOLOGY - GENERAL ORD ERABLES Final Result Performing Organization Address [facility] Co de Phone Number [facility] [place] [address] * (ABNORMAL) Lactate, whole blood (06/29/2019 12:00 AM HOME SALES SERVICE PROFESSIONAL) Lactate, bld 3.1(H) 0.7 - 2.0 mmol/L [facility] Blood specimen (specimen) 06/29/2019 06/29/2019 12:29 AM HOME SALES SERVICE PROFESSIONAL Brittany Serrano QUE[facility]ACHO TANNER LAB BLOOD ORDERABLES Final Res ult Performing Organization Address [facility] de Phone Number [facility] [place] [address] * (ABNORMAL) Blood gas, arterial (06/29/2019 12:00 AM HOME SALES SERVICE PROFESSIONAL) pH, Art 7.46(H) 7.35 - 7.45 [facility] PCO2, Arterial 36 35 - 45 mmHg [facility] PO2, Arterial 71(L) 83 - 108 mmHg [facility] HCO3 Art (Calculated) 27 20 - 30 mmol/L [facility] BE, art 3 mmol/L [facility] Comment: Interpretive Data No Reference Range Established Current Interpretive Data was last revised on 2017 O2 Sat Art (Measured) 95 90 - 95 % [facility] Blood specimen (specimen) 06/29/2019 06/29/2019 12:29 AM HOME SALES SERVICE PROFESSIONAL us Brittany Serrano NP LAB BLOOD ORDERABLES Final Res ult Performing Organization Address [facility] Co de Phone Number [facility] [place] [address] * Calcium, ionized (06/29/2019 12:00 AM HOME SALES SERVICE PROFESSIONAL) Pathologist [facility] Calcium, Ionized 4.75 4.50 - 5.10 mg/dL [facility] Blood specimen (specimen) 06/29/2019 06/29/2019 12:26 AM HOME SALES SERVICE PROFESSIONAL Brittany Serrano [facility] TANNER LAB BLOOD ORDERABLES Final Res ult Performing Organization Address City/[facility]/ZIP Co de Phone Number [facility] [place] [address] * Potassium, whole blood (06/29/2019 12:00 AM HOME SALES SERVICE PROFESSIONAL) [facility] Potassium, bld 4.6 3.3 - 4.9 mmol/L [facility] Blood specimen (specimen) 06/29/2019 06/29/2019 12:29 AM HOME SALES SERVICE PROFESSIONAL Brittany Serrano QUEBRACHO TANNER LAB BLOOD ORDERABLES Final Res ult Performing Organization Address [facility] Co de Phone Number [facility] [place] [address] * (ABNORMAL) Basic metabolic panel (06/29/2019 12:00 AM HOME SALES SERVICE PROFESSIONAL) [facility] Sodium 137 135 - 145 mmol/L [facility] Potassium, pl 5.1(H) 3.3 - 4.9 mmol/L [facility] Comment:Hemolyzed; (++); pot assium value may be falsely elevated by as much as 0.3 - 0.5 mmol/L. Suggest redraw and reanalysis. Chloride 102 97 - 110 mmol/L [facility] CO2 26 22 - 32 mmol/L [facility] Anion gap 9 2 - 15 mmol/L [facility] BUN 38(H) 8 - 25 mg/dL [facility] Creatinine 1.41(H) 0.60 - 1.10 mg/dL [facility] Glucose 198 70 - 199 mg/dL [facility] Comment: Interpretive Data Fasting glucose >/= [...] interpretive data was last revised 2017. Calcium 9.7 8.5 - 10.3 mg/dL [facility] Blood specimen (specimen) 06/29/2019 06/29/2019 12:26 AM HOME SALES SERVICE PROFESSIONAL Brittany Serrano [facility] TANNER LAB BLOOD ORDERABLES Final Res ult Performing Organization Address [facility] de Phone Number [facility] [place] [address] * Phosphorus (06/29/2019 12:00 AM HOME SALES SERVICE PROFESSIONAL) Phosphorus, pl 2.8 2.3 - 4.5 mg/dL [facility] Blood specimen (specimen) 06/29/2019 06/29/2019 12:26 AM HOME SALES SERVICE PROFESSIONAL Brittany Serrano [facility] TANNER LAB BLOOD ORDERABLES Final Res ult Performing Organization Address [facility] de Phone Number [facility] [place] [address] * Magnesium (06/29/2019 12:00 AM HOME SALES SERVICE PROFESSIONAL) Magnesium 1.5 1.4 - 2.5 mg/dL [facility] Blood specimen (specimen) 06/29/2019 06/29/2019 12:26 AM HOME SALES SERVICE PROFESSIONAL Brittany Serrano QUEBRACHO TANNER LAB BLOOD ORDERABLES Final Res ult Performing Organization Address [facility] de Phone Number [facility] Department [place] [address] * (ABNORMAL) CBC with auto differential (06/29/2019 12:00 AM HOME SALES SERVICE PROFESSIONAL) [facility] WBC 21.3(H) 3.8 - 9.9 K/cumm [facility] Hgb 8.5(L) 11.9 - 15.5 g/dL [facility] Hct 26.0(L) 35.6 - 45.5 % [facility] Plt 225 150 - 400 K/cumm [facility] MPV 11.1 9.1 - 12.3 fL [facility] RBC 3.02(L) 3.90 - 5.20 M/cumm [facility] MCV 86.1 81.3 - 96.4 fL [facility] MCH 28.1 27.1 - 33.3 pg [facility] MCHC 32.7 32.3 - 35.7 g/dL [facility] RDW CV 20.8(H) 11.1 - 14.9 % [facility] RDW SD 63.0(H) 35.7 - 48.1 fL [facility] NRBC abs 0.02(H) 0.00 - 0.01 K/cumm [facility] Blood specimen (specimen) 06/29/2019 06/29/2019 12:29 AM HOME SALES SERVICE PROFESSIONAL us Brittany Serrano [facility] TANNER LAB BLOOD ORDERABLES Final Res ult [facility] [place] [address] * Beta-hydroxybutyrate (06/29/2019 12:00 AM HOME SALES SERVICE PROFESSIONAL) [facility] Beta-Hydroxybut yrate 0.1 0.0 - 0.5 mmol/L [facility] Blood specimen (specimen) 06/29/2019 06/29/2019 12:26 AM HOME SALES SERVICE PROFESSIONAL Narrative [facility] - 06/29/2019 12:39 AM HOME SALES SERVICE PROFESSIONAL Once PRN blood glucose greater than 299 mg/dL. us Cas Reid MD LAB BLOOD ORDERABLES Final Res ult [facility] [place] [address] * Critical Care (06/28/2019 11:57 PM HOME SALES SERVICE PROFESSIONAL) Narrative Ina Russo MD - 06/28/2019 11:57 PM HOME SALES SERVICE PROFESSIONAL Brittany Serrano NP ? 06/29/2019 ??4:30 AM Critical Care Performed by: Brittany Serrano NP Authorized by: Brittany Serrano NP CRITICAL CARE: ??Team: ??SICU BLUE ??Shift: ??PM ??Level of Billing: ??Critical Care ??My time spent with this patient was 150 minutes: Critical Provider Statement: I have seen and examined the patient on this day of service. I have reviewed and confirmed the history, physical exam, laboratory and radiologic data as documented in the signed ICU note. I have reviewed and discussed my treatment plan with the ICU team and other medical/service consultant staff, making frequent assessments and decisions regarding this patient's complex medical care. Critical Care time was exclusive of time spent performing separately billed procedures, treating other patients, and teaching. This time was in addition to and separate from critical care provided by other practitioners in my group on this day of service. Critical Care was necessary to treat or prevent imminent or life-threatening deterioration of the following conditions: ? Hypotension ?? Acute undifferentiated respiratory failure ??This time was spent by me doing the following: ? Initiation/active titration of vasoactive medications ?? Invasive ventilator management, reassessment, and titration ?? I spent time reviewing and interpreting data from bedside monitors, laboratory results, and imaging, I spent time discussing the management of this critically ill patient with consultants and the medical staff and I spent time documenting in the medical record Brittany Serrano NP IN CLINIC/BEDSIDE ORDERABLES F inal Result * (ABNORMAL) POCT glucose (06/28/2019 11:33 PM HOME SALES SERVICE PROFESSIONAL) Glucose, POC 228(H) 70 - 199 mg/dL [facility] Glucose comment 1 RN Notified [facility] Blood specimen (specimen) 06/28/2019 11:33 PM HOME SALES SERVICE PROFESSIONAL 06/28/2019 11:33 PM HOME SALES SERVICE PROFESSIONAL us Lo Laura DO LAB POCT ORDERABLES - DE VICE Final Result Performing Organization Address [facility] Co de Phone Number [facility] [place] [address] * FL Fluoroscopy < 1 Hour (06/28/2019 10:47 PM HOME SALES SERVICE PROFESSIONAL) Narrative [facility] - 06/28/2019 10:47 PM HOME SALES SERVICE PROFESSIONAL The images from this study are not interpreted by Radiology. ??Please refer to the physician's procedure / OR operative note. us Lo Laura DO IMG FLUOROSCOPY PROCEDUR ES Final Result Performing Organization Address [facility] Co de Phone Number [facility] * Check Sample (06/28/2019 10:33 PM HOME SALES SERVICE PROFESSIONAL) ABO Rh A Positive [facility] HCLL OTHER 06/28/2019 10:3 3 PM HOME SALES SERVICE PROFESSIONAL 06/28/2019 11:34 PM HOME SALES SERVICE PROFESSIONAL Lo Laura DO LAB BLOOD ORDERABLES Fin al Result Performing Organization Address [facility] Co de Phone Number [facility] [place] [address] * (ABNORMAL) POC Blood Gas and Chemistries, Venous - (06/28/2019 10:25 PM HOME SALES SERVICE PROFESSIONAL) pH, Rj POC 7.35 7.32 - 7.43 [facility] pCO[facility], rj POC 52(H) 40 - 50 mmHg [facility] pO2, rj POC 29 mmHg [facility] Na, POC 138 135 - 145 mmol/L [facility] K POC 4.9 3.3 - 4.9 mmol/L [facility] Cl, POC 102 97 - 110 mmol/L [facility] Ionized Ca, POC 5.38(H) 4.50 - 5.10 mg/dL [facility] Glucose, POC 236(H) 70 - 199 mg/dL [facility] Lactate, POC 3.3(H) 0.7 - 2.2 mmol/L [facility] O2 Sat, Rj POC (Gorge) 52 % [facility] Base excess, POC 2.1 mmol/L [facility] HCO3, Rj POC 29 20 - 30 mmol/L [facility] Hct, POC 24.0(L) 36.3 - 45.3 % [facility] Total Hb, POC 7.9(L) 11.9 - 15.5 g/dL [facility] O2 Sat, Rj POC (Calc) 51 % [facility] Blood specimen (specimen) 06/28/2019 10:25 PM HOME SALES SERVICE PROFESSIONAL 06/28/2019 10:25 PM HOME SALES SERVICE PROFESSIONAL Lo Laura DO LAB POCT ORDERABLES - DE VICE Final Result Performing Organization Address City/[facility]/ZIP Co de Phone Number [facility] [place] [address] * Type and screen (06/28/2019 10:02 PM HOME SALES SERVICE PROFESSIONAL) Pathologist [facility] ABO Rh A Positive [facility] Triston, indirect Negative [facility] Blood specimen (specimen) 06/28/2019 10:02 PM HOME SALES SERVICE PROFESSIONAL 06/28/2019 10:24 PM HOME SALES SERVICE PROFESSIONAL Narrative [facility] - 06/28/2019 11:54 PM HOME SALES SERVICE PROFESSIONAL Has the patient had Daratumumab (Darzalex) in the past 6 months?->Unknown Cas Reid MD LAB BLOOD BANK TEST ORDERABLES Final Result [facility] [place] [address] * (ABNORMAL) POCT glucose (06/28/2019 9:39 PM HOME SALES SERVICE PROFESSIONAL) Glucose, POC 274(H) 70 - 199 mg/dL [facility] Blood specimen (specimen) 06/28/2019 9:39 PM HOME SALES SERVICE PROFESSIONAL 06/28/2019 9:39 PM HOME SALES SERVICE PROFESSIONAL Dean Ritter MD LAB POCT ORDERABLES - DEV ICE Final Result Performing Organization Address [facility] Co de Phone Number [facility] [place] [address] * Prepare RBC: 2 Units (06/28/2019 9:18 PM HOME SALES SERVICE PROFESSIONAL) Product code [id number] [facility] Unit Number [id number] 3-C [facility] Product Blood Type OPOS [facility] Dispense Status RETURNED [facility] Product code [id number] [facility] Unit Number [id number] 5-C [facility] Product Blood Type OPOS [facility] Dispense Status RETURNED [facility] Blood specimen (specimen) 06/28/2019 9:18 PM HOME SALES SERVICE PROFESSIONAL 06/28/2019 9:19 PM HOME SALES SERVICE PROFESSIONAL Narrative [facility] - 06/29/2019 2:44 AM HOME SALES SERVICE PROFESSIONAL Specify Procedure:->open tibia fracture Are special requirements needed? (all products are leukoreduced)->No Date required:-[id number] LRRBC # of [id number] Reasons:-Hold for procedure (specify procedure)} us Cas Reid MD BLOOD BANK PRODUCT ORDERABLES Final Result Performing Organization Address [facility] Co de Phone Number [facility] [place] [address] * Prepare RBC (06/28/2019 8:51 PM HOME SALES SERVICE PROFESSIONAL) Product code [id number] [facility] Unit Number [id number] [facility] Product Blood Type ONEG [facility] Dispense Status RETURNED [facility] Product code [id number] [facility] Unit Number [id number] [facility] Product Blood Type OPOS [facility] Dispense Status RETURNED [facility] Product code Q5496E82 [facility] Unit Number [id number] [facility] Product Blood Type ONEG [facility] Dispense Status RETURNED [facility] Product code [id number] [facility] Unit Number [id number] [facility] Product Blood Type OPOS [facility] Dispense Status RETURNED [facility] Product code D0875I82 [facility] Unit Number [id number] I [facility] Product Blood Type OPOS [facility] Dispense Status PRESUMED TRANSFUSED [facility] Product code P7556P15 [facility] Unit Number [id number] G [facility] Product Blood Type OPOS [facility] Dispense Status PRESUMED TRANSFUSED [facility] Product code X4969L59 [facility] Unit Number [id number]- [id number] [facility] Product Blood Type APOS [facility] Dispense Status RETURNED [facility] Blood specimen (specimen) 06/28/2019 8:51 PM HOME SALES SERVICE PROFESSIONAL 06/28/2019 8:51 PM HOME SALES SERVICE PROFESSIONAL Forrest Begum MD BLOOD BANK PRODUCT ORDERABLES Final Result [facility] [place] [address] * (ABNORMAL) Differential, auto (06/28/2019 8:42 PM HOME SALES SERVICE PROFESSIONAL) Neutrophil abs 15.4(H) 1.7 - 6.5 K/cumm [facility] Imm gran abs 0.6(H) 0.0 - 0.1 K/cumm [facility] Lymphocyte abs 2.8 0.8 - 3.3 K/cumm [facility] Monocyte abs 1.2(H) 0.2 - 0.8 K/cumm [facility] Eosinophil abs 0.2 0.0 - 0.5 K/cumm [facility] Basophil abs 0.1 0.0 - 0.1 K/cumm [facility] Neutrophil pct 76.0 % [facility] Comment: Interpretive Data Percent cell count reference ranges are not reported, since discordance with absolute values may lead to misinterpretation of CBC data. Current Interpretive Data was last revised on 2017. Imm gran pct 3.1 % [facility] Comment: Interpretive Data Percent cell count reference ranges are not reported, since discordance with absolute values may lead to misinterpretation of CBC data. Current Interpretive Data was last revised on 2017. Lymphocyte pct 13.9 % [facility] Comment: Interpretive Data Percent cell count reference ranges are not reported, since discordance with absolute values may lead to misinterpretation of CBC data. Current Interpretive Data was last revised on 2017. Monocyte pct 5.8 % [facility] Comment: Interpretive Data Percent cell count reference ranges are not reported, since discordance with absolute values may lead to misinterpretation of CBC data. Current Interpretive Data was last revised on 2017. Eosinophil pct 0.9 % [facility] Comment: Interpretive Data Percent cell count reference ranges are not reported, since discordance with absolute values may lead to misinterpretation of CBC data. Current Interpretive Data was last revised on 2017. Basophil pct 0.3 % [facility] Comment: Interpretive Data Percent cell count reference ranges are not reported, since discordance with absolute values may lead to misinterpretation of CBC data. Current Interpretive Data was last revised on 2017. Blood specimen (specimen) 06/28/2019 8:42 PM HOME SALES SERVICE PROFESSIONAL 06/28/2019 9:04 PM HOME SALES SERVICE PROFESSIONAL us Mago Brian MD LAB BLOOD ORDERABLES Final Result [facility] [place] [address] * (ABNORMAL) CBC with auto differential (06/28/2019 8:42 PM HOME SALES SERVICE PROFESSIONAL) WBC 20.3(H) 3.8 - 9.9 K/cumm [facility] Hgb 8.5(L) 11.9 - 15.5 g/dL [facility] Hct 26.4(L) 35.6 - 45.5 % [facility] Plt 188 150 - 400 K/cumm [facility] MPV 11.3 9.1 - 12.3 fL [facility] RBC 3.07(L) 3.90 - 5.20 M/cumm [facility] MCV 86.0 81.3 - 96.4 fL [facility] Comment:MCV delta due to alfredo gical procedure. MCH 27.7 27.1 - 33.3 pg [facility] MCHC 32.2(L) 32.3 - 35.7 g/dL [facility] RDW CV 20.5(H) 11.1 - 14.9 % [facility] RDW SD 63.5(H) 35.7 - 48.1 fL [facility] NRBC abs 0.02(H) 0.00 - 0.01 K/cumm [facility] Blood specimen (specimen) 06/28/2019 8:42 PM HOME SALES SERVICE PROFESSIONAL 06/28/2019 9:04 PM HOME SALES SERVICE PROFESSIONAL Narrative [facility] - 06/28/2019 9:53 PM HOME SALES SERVICE PROFESSIONAL THE COLLECTION LOCATION IS [address] us Mago Brian MD LAB BLOOD ORDERABLES Final Result Performing Organization Address City/[facility]/ZIP Co de Phone Number [facility] [place] [address] * (ABNORMAL) POCT glucose (06/28/2019 8:26 PM HOME SALES SERVICE PROFESSIONAL) [facility] Glucose, POC 267(H) 70 - 199 mg/dL [facility] Blood specimen (specimen) 06/28/2019 8:26 PM HOME SALES SERVICE PROFESSIONAL 06/28/2019 8:26 PM HOME SALES SERVICE PROFESSIONAL us Forrest Begum MD LAB POCT ORDERABLES - DEVICE Final Result [facility] [place] [address] * [place] CR[facility]ARE [place]/INJURED PATIENT INIT 30-74 MIN, [place] CRIT[place]ARE [place]/INJURED PATIENT ADDL 30 MIN (06/28/2019 7:50 PM HOME SALES SERVICE PROFESSIONAL) Narrative Forrest Begum MD - 06/28/2019 7:50 PM HOME SALES SERVICE PROFESSIONAL Forrest Begum MD ? 06/28/2019 ??7:51 PM Critical Care Performed by: Forrest Begum MD Authorized by: Forrest Begum MD Critical care provider statement: As reflected in the history, physical exam, orders, notes, and/or MDM, I was personally present while the patient was critically ill and provided critical care services for approximately 78 minutes, excluding time involved in separately billable procedures. ??Critical care was necessary to treat or prevent imminent or life-threatening deterioration of the following condition(s): ?? unstable vital signs ?? level 1 trauma, limb threatening condition and severe long-bone fracture ??Critical care was time spent by me providing the following: ? continuous telemetry, continuous pulse oximetry, continuous capnography, interpretation of bedside monitors, imaging, and arterial/venous lab draws and serial bedside patient exams ?? transfusion of blood products ?? advanced wound care, serial neurovascular exams and acute fracture care ?? I provided emergent necessary critical care medicine services to this patient. I ordered and reviewed test results and/or imaging studies. I spent time discussing the management of this critically ill patient with consultants and the medical staff. I spent time discussing the management and therapeutic options for this critically ill patient with the patient themselves or with the appropriate designated surrogate decision-maker. I spent time documenting in the medical record. I admitted this patient to an Intensive Care unit (ICU) and discussed management with the admitting team. us Forrest Begum MD IN CLINIC/BEDSIDE ORDERABLES Final Result * POCT glucose (06/28/2019 7:31 PM HOME SALES SERVICE PROFESSIONAL) Glucose, POC 176 70 - 199 mg/dL [facility] Blood specimen (specimen) 06/28/2019 7:31 PM HOME SALES SERVICE PROFESSIONAL 06/28/2019 7:31 PM HOME SALES SERVICE PROFESSIONAL us Forrest Begum MD LAB POCT ORDERABLES - DEVICE Final Result [facility] [place] [address] * POCT hCG, urine (06/28/2019 7:23 PM HOME SALES SERVICE PROFESSIONAL) HCG, ur, POC Negative Lot Number [id number] QC Backgroud Clear Acceptable QC Control Line Acceptable Urine 06/28/2019 7:23 PM HOME SALES SERVICE PROFESSIONAL Forrset Begum MD POINT OF CARE TEST ORDERABLES Final Result * XR Tibia Fibula Left 2 Views (06/28/2019 7:20 PM HOME SALES SERVICE PROFESSIONAL) Anatomical Region Laterality Modality Lower Extremities, Lower Leg Left Com puted Radiography 06/28/2019 7:48 PM HOME SALES SERVICE PROFESSIONAL Impressions 06/29/2019 2:54 PM HOME SALES SERVICE PROFESSIONAL 1. ??Open comminuted periprosthetic fracture of the proximal left tibia 2. ??Open comminuted fracture of the proximal left fibula 3. ??Mildly displaced intra-articular right medial malleolus fracture 4. ??No acute pelvic fracture. Dictated by: Luh Moffett M.D. The radiology attending physician has personally reviewed this study, and had reviewed and/or edited this written report and agrees with it. Electronically signed by: Gilberto Fuentes M.D. Narrative 06/29/2019 2:54 PM HOME SALES SERVICE PROFESSIONAL EXAMINATION: XR ANKLE RIGHT 3 OR MORE VIEWS, XR PELVIS 1 OR 2 VIEWS, XR TIBIA FIBULA RIGHT2 VIEWS, XR TIBIA FIBULA LEFT 2 VIEWS, XR FEMUR LEFT 2 OR MORE VIEWS, XR KNEE LEFT 1 OR 2 VIEWS, XR ANKLE LEFT 3 OR MORE VIEWS HISTORY: Level 1 trauma, fall COMPARISON: CT same day of the chest, abdomen, pelvis, and left lower extremity FINDINGS: 3 views of the right ankle, 4 views of the right tibia and fibula, views of the left ankle, 4 views of the left fibula, 2 views of the left knee, 4 views of the left femur, and AP view of the pelvis are obtained. There is a mildly displaced intra-articular right medial malleolar fracture. ??There is soft tissue swelling about the medial ankle. There is a left total knee arthroplasty. ??There is a highly comminuted open periprosthetic fracture of the proximal left tibia with anterior and lateral displacement of the distal fracture fragment. ??There is a comminuted fracture of the proximal left fibula with anterior displacement of the distal fracture fragment. ??There is significant soft tissue swelling and locules of soft tissue gas in the left lower leg. ??The distal femoral component of the prostate is intact. ??No fracture involving the left femur. There is an old healed reduced and internally fixated fracture of the distal left fibula fixated with plate and screws. ??There is a partially threaded screw fixating the left medial malleolus. No acute displaced fracture in the pelvis. ??There is a Delarosa catheter bladder temperature probe. ??There is contrast filling the bladder from recent CT scan. Procedure Note Gilbetro Fuentes MD - 06/29/2019 EXAMINATION: XR ANKLE RIGHT 3 OR MORE VIEWS, XR PELVIS 1 OR 2 VIEWS, XR TIBIA FIBULA RIGHT2 VIEWS, XR TIBIA FIBULA LEFT 2 VIEWS, XR FEMUR LEFT 2 OR MORE VIEWS, XR KNEE LEFT 1 OR 2 VIEWS, XR ANKLE LEFT 3 OR MORE VIEWS HISTORY: Level 1 trauma, fall COMPARISON: CT same day of the chest, abdomen, pelvis, and left lower extremity FINDINGS: 3 views of the right ankle, 4 views of the right tibia and fibula, views of the left ankle, 4 views of the left fibula, 2 views of the left knee, 4 views of the left femur, and AP view of the pelvis are obtained. There is a mildly displaced intra-articular right medial malleolar fracture. There is soft tissue swelling about the medial ankle. There is a left total knee arthroplasty. There is a highly comminuted open periprosthetic fracture of the proximal left tibia with anterior and lateral displacement of the distal fracture fragment. There is a comminuted fracture of the proximal left fibula with anterior displacement of the distal fracture fragment. There is significant soft tissue swelling and locules of soft tissue gas in the left lower leg. The distal femoral component of the prostate is intact. No fracture involving the left femur. There is an old healed reduced and internally fixated fracture of the distal left fibula fixated with plate and screws. There is a partially threaded screw fixating the left medial malleolus. No acute displaced fracture in the pelvis. There is a Delarosa catheter bladder temperature probe. There is contrast filling the bladder from recent CT scan. IMPRESSION: 1. Open comminuted periprosthetic fracture of the proximal left tibia 2. Open comminuted fracture of the proximal left fibula 3. Mildly displaced intra-articular right medial malleolus fracture 4. No acute pelvic fracture. Dictated by: Luh Moffett M.D. The radiology attending physician has personally reviewed this study, and had reviewed and/or edited this written report and agrees with it. Electronically signed by: Gilberto Fuentes M.D. Mago Brian MD IMG XR PROCEDURES Fi nal Result * XR Pelvis 1 or 2 Views (06/28/2019 7:19 PM HOME SALES SERVICE PROFESSIONAL) Anatomical Region Laterality Modality Body, Pelvis N/A Computed Radiogr aphy 06/28/2019 7:48 PM HOME SALES SERVICE PROFESSIONAL Impressions 06/29/2019 2:54 PM HOME SALES SERVICE PROFESSIONAL 1. ??Open comminuted periprosthetic fracture of the proximal left tibia 2. ??Open comminuted fracture of the proximal left fibula 3. ??Mildly displaced intra-articular right medial malleolus fracture 4. ??No acute pelvic fracture. Dictated by: Luh Moffett M.D. The radiology attending physician has personally reviewed this study, and had reviewed and/or edited this written report and agrees with it. Electronically signed by: Gilberto Fuentes M.D. Narrative 06/29/2019 2:54 PM HOME SALES SERVICE PROFESSIONAL EXAMINATION: XR ANKLE RIGHT 3 OR MORE VIEWS, XR PELVIS 1 OR 2 VIEWS, XR TIBIA FIBULA RIGHT2 VIEWS, XR TIBIA FIBULA LEFT 2 VIEWS, XR FEMUR LEFT 2 OR MORE VIEWS, XR KNEE LEFT 1 OR 2 VIEWS, XR ANKLE LEFT 3 OR MORE VIEWS HISTORY: Level 1 trauma, fall COMPARISON: CT same day of the chest, abdomen, pelvis, and left lower extremity FINDINGS: 3 views of the right ankle, 4 views of the right tibia and fibula, views of the left ankle, 4 views of the left fibula, 2 views of the left knee, 4 views of the left femur, and AP view of the pelvis are obtained. There is a mildly displaced intra-articular right medial malleolar fracture. ??There is soft tissue swelling about the medial ankle. There is a left total knee arthroplasty. ??There is a highly comminuted open periprosthetic fracture of the proximal left tibia with anterior and lateral displacement of the distal fracture fragment. ??There is a comminuted fracture of the proximal left fibula with anterior displacement of the distal fracture fragment. ??There is significant soft tissue swelling and locules of soft tissue gas in the left lower leg. ??The distal femoral component of the prostate is intact. ??No fracture involving the left femur. There is an old healed reduced and internally fixated fracture of the distal left fibula fixated with plate and screws. ??There is a partially threaded screw fixating the left medial malleolus. No acute displaced fracture in the pelvis. ??There is a Delarosa catheter bladder temperature probe. ??There is contrast filling the bladder from recent CT scan. Procedure Note Gilberto Fuentes MD - 06/29/2019 EXAMINATION: XR ANKLE RIGHT 3 OR MORE VIEWS, XR PELVIS 1 OR 2 VIEWS, XR TIBIA FIBULA RIGHT2 VIEWS, XR TIBIA FIBULA LEFT 2 VIEWS, XR FEMUR LEFT 2 OR MORE VIEWS, XR KNEE LEFT 1 OR 2 VIEWS, XR ANKLE LEFT 3 OR MORE VIEWS HISTORY: Level 1 trauma, fall COMPARISON: CT same day of the chest, abdomen, pelvis, and left lower extremity FINDINGS: 3 views of the right ankle, 4 views of the right tibia and fibula, views of the left ankle, 4 views of the left fibula, 2 views of the left knee, 4 views of the left femur, and AP view of the pelvis are obtained. There is a mildly displaced intra-articular right medial malleolar fracture. There is soft tissue swelling about the medial ankle. There is a left total knee arthroplasty. There is a highly comminuted open periprosthetic fracture of the proximal left tibia with anterior and lateral displacement of the distal fracture fragment. There is a comminuted fracture of the proximal left fibula with anterior displacement of the distal fracture fragment. There is significant soft tissue swelling and locules of soft tissue gas in the left lower leg. The distal femoral component of the prostate is intact. No fracture involving the left femur. There is an old healed reduced and internally fixated fracture of the distal left fibula fixated with plate and screws. There is a partially threaded screw fixating the left medial malleolus. No acute displaced fracture in the pelvis. There is a Delarosa catheter bladder temperature probe. There is contrast filling the bladder from recent CT scan. IMPRESSION: 1. Open comminuted periprosthetic fracture of the proximal left tibia 2. Open comminuted fracture of the proximal left fibula 3. Mildly displaced intra-articular right medial malleolus fracture 4. No acute pelvic fracture. Dictated by: Luh Moffett M.D. The radiology attending physician has personally reviewed this study, and had reviewed and/or edited this written report and agrees with it. Electronically signed by: Gilberto Fuentes M.D. us Mago Brian MD IMG XR PROCEDURES Fi nal Result * XR Tibia Fibula Right 2 Views (06/28/2019 7:19 PM HOME SALES SERVICE PROFESSIONAL) Anatomical Region Laterality Modality Lower Extremities, Lower Leg Right Com puted Radiography 06/28/2019 7:48 PM HOME SALES SERVICE PROFESSIONAL Impressions 06/29/2019 2:54 PM HOME SALES SERVICE PROFESSIONAL 1. ??Open comminuted periprosthetic fracture of the proximal left tibia 2. ??Open comminuted fracture of the proximal left fibula 3. ??Mildly displaced intra-articular right medial malleolus fracture 4. ??No acute pelvic fracture. Dictated by: Luh Moffett M.D. The radiology attending physician has personally reviewed this study, and had reviewed and/or edited this written report and agrees with it. Electronically signed by: Gilberto Fuentes M.D. Narrative 06/29/2019 2:54 PM HOME SALES SERVICE PROFESSIONAL EXAMINATION: XR ANKLE RIGHT 3 OR MORE VIEWS, XR PELVIS 1 OR 2 VIEWS, XR TIBIA FIBULA RIGHT2 VIEWS, XR TIBIA FIBULA LEFT 2 VIEWS, XR FEMUR LEFT 2 OR MORE VIEWS, XR KNEE LEFT 1 OR 2 VIEWS, XR ANKLE LEFT 3 OR MORE VIEWS HISTORY: Level 1 trauma, fall COMPARISON: CT same day of the chest, abdomen, pelvis, and left lower extremity FINDINGS: 3 views of the right ankle, 4 views of the right tibia and fibula, views of the left ankle, 4 views of the left fibula, 2 views of the left knee, 4 views of the left femur, and AP view of the pelvis are obtained. There is a mildly displaced intra-articular right medial malleolar fracture. ??There is soft tissue swelling about the medial ankle. There is a left total knee arthroplasty. ??There is a highly comminuted open periprosthetic fracture of the proximal left tibia with anterior and lateral displacement of the distal fracture fragment. ??There is a comminuted fracture of the proximal left fibula with anterior displacement of the distal fracture fragment. ??There is significant soft tissue swelling and locules of soft tissue gas in the left lower leg. ??The distal femoral component of the prostate is intact. ??No fracture involving the left femur. There is an old healed reduced and internally fixated fracture of the distal left fibula fixated with plate and screws. ??There is a partially threaded screw fixating the left medial malleolus. No acute displaced fracture in the pelvis. ??There is a Delarosa catheter bladder temperature probe. ??There is contrast filling the bladder from recent CT scan. Procedure Note Gilberto Fuentes MD - 06/29/2019 EXAMINATION: XR ANKLE RIGHT 3 OR MORE VIEWS, XR PELVIS 1 OR 2 VIEWS, XR TIBIA FIBULA RIGHT2 VIEWS, XR TIBIA FIBULA LEFT 2 VIEWS, XR FEMUR LEFT 2 OR MORE VIEWS, XR KNEE LEFT 1 OR 2 VIEWS, XR ANKLE LEFT 3 OR MORE VIEWS HISTORY: Level 1 trauma, fall COMPARISON: CT same day of the chest, abdomen, pelvis, and left lower extremity FINDINGS: 3 views of the right ankle, 4 views of the right tibia and fibula, views of the left ankle, 4 views of the left fibula, 2 views of the left knee, 4 views of the left femur, and AP view of the pelvis are obtained. There is a mildly displaced intra-articular right medial malleolar fracture. There is soft tissue swelling about the medial ankle. There is a left total knee arthroplasty. There is a highly comminuted open periprosthetic fracture of the proximal left tibia with anterior and lateral displacement of the distal fracture fragment. There is a comminuted fracture of the proximal left fibula with anterior displacement of the distal fracture fragment. There is significant soft tissue swelling and locules of soft tissue gas in the left lower leg. The distal femoral component of the prostate is intact. No fracture involving the left femur. There is an old healed reduced and internally fixated fracture of the distal left fibula fixated with plate and screws. There is a partially threaded screw fixating the left medial malleolus. No acute displaced fracture in the pelvis. There is a Delarosa catheter bladder temperature probe. There is contrast filling the bladder from recent CT scan. IMPRESSION: 1. Open comminuted periprosthetic fracture of the proximal left tibia 2. Open comminuted fracture of the proximal left fibula 3. Mildly displaced intra-articular right medial malleolus fracture 4. No acute pelvic fracture. Dictated by: Luh Moffett M.D. The radiology attending physician has personally reviewed this study, and had reviewed and/or edited this written report and agrees with it. Electronically signed by: Gilberto Fuentes M.D. us Mago Brian MD IMG XR PROCEDURES Fi nal Result * XR Ankle Left 3 or More Views (06/28/2019 7:19 PM HOME SALES SERVICE PROFESSIONAL) Anatomical Region Laterality Modality Lower Extremities, Ankle Left Compute d Radiography 06/28/2019 7:48 PM HOME SALES SERVICE PROFESSIONAL Impressions 06/29/2019 2:54 PM HOME SALES SERVICE PROFESSIONAL 1. ??Open comminuted periprosthetic fracture of the proximal left tibia 2. ??Open comminuted fracture of the proximal left fibula 3. ??Mildly displaced intra-articular right medial malleolus fracture 4. ??No acute pelvic fracture. Dictated by: Luh Moffett M.D. The radiology attending physician has personally reviewed this study, and had reviewed and/or edited this written report and agrees with it. Electronically signed by: Gilberto Fuentes M.D. Narrative 06/29/2019 2:54 PM HOME SALES SERVICE PROFESSIONAL EXAMINATION: XR ANKLE RIGHT 3 OR MORE VIEWS, XR PELVIS 1 OR 2 VIEWS, XR TIBIA FIBULA RIGHT2 VIEWS, XR TIBIA FIBULA LEFT 2 VIEWS, XR FEMUR LEFT 2 OR MORE VIEWS, XR KNEE LEFT 1 OR 2 VIEWS, XR ANKLE LEFT 3 OR MORE VIEWS HISTORY: Level 1 trauma, fall COMPARISON: CT same day of the chest, abdomen, pelvis, and left lower extremity FINDINGS: 3 views of the right ankle, 4 views of the right tibia and fibula, views of the left ankle, 4 views of the left fibula, 2 views of the left knee, 4 views of the left femur, and AP view of the pelvis are obtained. There is a mildly displaced intra-articular right medial malleolar fracture. ??There is soft tissue swelling about the medial ankle. There is a left total knee arthroplasty. ??There is a highly comminuted open periprosthetic fracture of the proximal left tibia with anterior and lateral displacement of the distal fracture fragment. ??There is a comminuted fracture of the proximal left fibula with anterior displacement of the distal fracture fragment. ??There is significant soft tissue swelling and locules of soft tissue gas in the left lower leg. ??The distal femoral component of the prostate is intact. ??No fracture involving the left femur. There is an old healed reduced and internally fixated fracture of the distal left fibula fixated with plate and screws. ??There is a partially threaded screw fixating the left medial malleolus. No acute displaced fracture in the pelvis. ??There is a Delarosa catheter bladder temperature probe. ??There is contrast filling the bladder from recent CT scan. Procedure Note Gilberto Fuentes MD - 06/29/2019 EXAMINATION: XR ANKLE RIGHT 3 OR MORE VIEWS, XR PELVIS 1 OR 2 VIEWS, XR TIBIA FIBULA RIGHT2 VIEWS, XR TIBIA FIBULA LEFT 2 VIEWS, XR FEMUR LEFT 2 OR MORE VIEWS, XR KNEE LEFT 1 OR 2 VIEWS, XR ANKLE LEFT 3 OR MORE VIEWS HISTORY: Level 1 trauma, fall COMPARISON: CT same day of the chest, abdomen, pelvis, and left lower extremity FINDINGS: 3 views of the right ankle, 4 views of the right tibia and fibula, views of the left ankle, 4 views of the left fibula, 2 views of the left knee, 4 views of the left femur, and AP view of the pelvis are obtained. There is a mildly displaced intra-articular right medial malleolar fracture. There is soft tissue swelling about the medial ankle. There is a left total knee arthroplasty. There is a highly comminuted open periprosthetic fracture of the proximal left tibia with anterior and lateral displacement of the distal fracture fragment. There is a comminuted fracture of the proximal left fibula with anterior displacement of the distal fracture fragment. There is significant soft tissue swelling and locules of soft tissue gas in the left lower leg. The distal femoral component of the prostate is intact. No fracture involving the left femur. There is an old healed reduced and internally fixated fracture of the distal left fibula fixated with plate and screws. There is a partially threaded screw fixating the left medial malleolus. No acute displaced fracture in the pelvis. There is a Delarosa catheter bladder temperature probe. There is contrast filling the bladder from recent CT scan. IMPRESSION: 1. Open comminuted periprosthetic fracture of the proximal left tibia 2. Open comminuted fracture of the proximal left fibula 3. Mildly displaced intra-articular right medial malleolus fracture 4. No acute pelvic fracture. Dictated by: Luh Moffett M.D. The radiology attending physician has personally reviewed this study, and had reviewed and/or edited this written report and agrees with it. Electronically signed by: Gilberto Fuentes M.D. us Mago Brian MD IMG XR PROCEDURES Fi nal Result * XR Chest 1 Vw Portable (06/28/2019 7:19 PM HOME SALES SERVICE PROFESSIONAL) Anatomical Region Laterality Modality Body, Chest N/A Computed Radiogr aphy 06/28/2019 7:57 PM HOME SALES SERVICE PROFESSIONAL Impressions 06/29/2019 2:53 PM HOME SALES SERVICE PROFESSIONAL 1st is made to same day chest CT. There is an endotracheal tube which terminates 1.3 cm above the jesús. ??A gastric tube projects below the left hemidiaphragm, extending at least to the body of the stomach. Lung volumes are decreased with bibasilar atelectasis. ??There are right upper lung predominant opacities correlate with areas of groundglass opacity seen on CT and may represent asymmetric pulmonary edema. ??There is no pleural effusion or pneumothorax. Cardiomediastinal contours are within normal limits accounting for portable technique and low lung volumes. Dictated by: Luh Moffett M.D. The radiology attending physician has personally reviewed this study, and had reviewed and/or edited this written report and agrees with it. Electronically signed by: Gilberto Fuentes M.D. Narrative 06/29/2019 2:53 PM HOME SALES SERVICE PROFESSIONAL EXAMINATION: 1 view chest radiograph Procedure Note Gilberto Fuentes MD - 06/29/2019 EXAMINATION: 1 view chest radiograph IMPRESSION: 1st is made to same day chest CT. There is an endotracheal tube which terminates 1.3 cm above the jesús. A gastric tube projects below the left hemidiaphragm, extending at least to the body of the stomach. Lung volumes are decreased with bibasilar atelectasis. There are right upper lung predominant opacities correlate with areas of groundglass opacity seen on CT and may represent asymmetric pulmonary edema. There is no pleural effusion or pneumothorax. Cardiomediastinal contours are within normal limits accounting for portable technique and low lung volumes. Dictated by: Luh Moffett M.D. The radiology attending physician has personally reviewed this study, and had reviewed and/or edited this written report and agrees with it. Electronically signed by: Gilberto Fuentes M.D. Mago Brian MD IMG XR PROCEDURES Fi nal Result * XR Femur Left 2 or More Views (06/28/2019 7:19 PM HOME SALES SERVICE PROFESSIONAL) Anatomical Region Laterality Modality Lower Extremities, Thigh, Femur Left Computed Radiography 06/28/2019 7:48 PM HOME SALES SERVICE PROFESSIONAL Impressions 06/29/2019 2:54 PM HOME SALES SERVICE PROFESSIONAL 1. ??Open comminuted periprosthetic fracture of the proximal left tibia 2. ??Open comminuted fracture of the proximal left fibula 3. ??Mildly displaced intra-articular right medial malleolus fracture 4. ??No acute pelvic fracture. Dictated by: Luh Moffett M.D. The radiology attending physician has personally reviewed this study, and had reviewed and/or edited this written report and agrees with it. Electronically signed by: Gilberto Fuentes M.D. Narrative 06/29/2019 2:54 PM HOME SALES SERVICE PROFESSIONAL EXAMINATION: XR ANKLE RIGHT 3 OR MORE VIEWS, XR PELVIS 1 OR 2 VIEWS, XR TIBIA FIBULA RIGHT2 VIEWS, XR TIBIA FIBULA LEFT 2 VIEWS, XR FEMUR LEFT 2 OR MORE VIEWS, XR KNEE LEFT 1 OR 2 VIEWS, XR ANKLE LEFT 3 OR MORE VIEWS HISTORY: Level 1 trauma, fall COMPARISON: CT same day of the chest, abdomen, pelvis, and left lower extremity FINDINGS: 3 views of the right ankle, 4 views of the right tibia and fibula, views of the left ankle, 4 views of the left fibula, 2 views of the left knee, 4 views of the left femur, and AP view of the pelvis are obtained. There is a mildly displaced intra-articular right medial malleolar fracture. ??There is soft tissue swelling about the medial ankle. There is a left total knee arthroplasty. ??There is a highly comminuted open periprosthetic fracture of the proximal left tibia with anterior and lateral displacement of the distal fracture fragment. ??There is a comminuted fracture of the proximal left fibula with anterior displacement of the distal fracture fragment. ??There is significant soft tissue swelling and locules of soft tissue gas in the left lower leg. ??The distal femoral component of the prostate is intact. ??No fracture involving the left femur. There is an old healed reduced and internally fixated fracture of the distal left fibula fixated with plate and screws. ??There is a partially threaded screw fixating the left medial malleolus. No acute displaced fracture in the pelvis. ??There is a Delarosa catheter bladder temperature probe. ??There is contrast filling the bladder from recent CT scan. Procedure Note Gilberto Fuentes MD - 06/29/2019 EXAMINATION: XR ANKLE RIGHT 3 OR MORE VIEWS, XR PELVIS 1 OR 2 VIEWS, XR TIBIA FIBULA RIGHT2 VIEWS, XR TIBIA FIBULA LEFT 2 VIEWS, XR FEMUR LEFT 2 OR MORE VIEWS, XR KNEE LEFT 1 OR 2 VIEWS, XR ANKLE LEFT 3 OR MORE VIEWS HISTORY: Level 1 trauma, fall COMPARISON: CT same day of the chest, abdomen, pelvis, and left lower extremity FINDINGS: 3 views of the right ankle, 4 views of the right tibia and fibula, views of the left ankle, 4 views of the left fibula, 2 views of the left knee, 4 views of the left femur, and AP view of the pelvis are obtained. There is a mildly displaced intra-articular right medial malleolar fracture. There is soft tissue swelling about the medial ankle. There is a left total knee arthroplasty. There is a highly comminuted open periprosthetic fracture of the proximal left tibia with anterior and lateral displacement of the distal fracture fragment. There is a comminuted fracture of the proximal left fibula with anterior displacement of the distal fracture fragment. There is significant soft tissue swelling and locules of soft tissue gas in the left lower leg. The distal femoral component of the prostate is intact. No fracture involving the left femur. There is an old healed reduced and internally fixated fracture of the distal left fibula fixated with plate and screws. There is a partially threaded screw fixating the left medial malleolus. No acute displaced fracture in the pelvis. There is a Delarosa catheter bladder temperature probe. There is contrast filling the bladder from recent CT scan. IMPRESSION: 1. Open comminuted periprosthetic fracture of the proximal left tibia 2. Open comminuted fracture of the proximal left fibula 3. Mildly displaced intra-articular right medial malleolus fracture 4. No acute pelvic fracture. Dictated by: Luh Moffett M.D. The radiology attending physician has personally reviewed this study, and had reviewed and/or edited this written report and agrees with it. Electronically signed by: Gilberto Fuentes M.D. us Mago Brian MD IMG XR PROCEDURES Fi nal Result * XR Knee Left 1 or 2 Views (06/28/2019 7:19 PM HOME SALES SERVICE PROFESSIONAL) Anatomical Region Laterality Modality Lower Extremities, Knee Left Computed Radiography 06/28/2019 7:48 PM HOME SALES SERVICE PROFESSIONAL Impressions 06/29/2019 2:54 PM HOME SALES SERVICE PROFESSIONAL 1. ??Open comminuted periprosthetic fracture of the proximal left tibia 2. ??Open comminuted fracture of the proximal left fibula 3. ??Mildly displaced intra-articular right medial malleolus fracture 4. ??No acute pelvic fracture. Dictated by: Luh Moffett M.D. The radiology attending physician has personally reviewed this study, and had reviewed and/or edited this written report and agrees with it. Electronically signed by: Gilberto Fuentes M.D. Narrative 06/29/2019 2:54 PM HOME SALES SERVICE PROFESSIONAL EXAMINATION: XR ANKLE RIGHT 3 OR MORE VIEWS, XR PELVIS 1 OR 2 VIEWS, XR TIBIA FIBULA RIGHT2 VIEWS, XR TIBIA FIBULA LEFT 2 VIEWS, XR FEMUR LEFT 2 OR MORE VIEWS, XR KNEE LEFT 1 OR 2 VIEWS, XR ANKLE LEFT 3 OR MORE VIEWS HISTORY: Level 1 trauma, fall COMPARISON: CT same day of the chest, abdomen, pelvis, and left lower extremity FINDINGS: 3 views of the right ankle, 4 views of the right tibia and fibula, views of the left ankle, 4 views of the left fibula, 2 views of the left knee, 4 views of the left femur, and AP view of the pelvis are obtained. There is a mildly displaced intra-articular right medial malleolar fracture. ??There is soft tissue swelling about the medial ankle. There is a left total knee arthroplasty. ??There is a highly comminuted open periprosthetic fracture of the proximal left tibia with anterior and lateral displacement of the distal fracture fragment. ??There is a comminuted fracture of the proximal left fibula with anterior displacement of the distal fracture fragment. ??There is significant soft tissue swelling and locules of soft tissue gas in the left lower leg. ??The distal femoral component of the prostate is intact. ??No fracture involving the left femur. There is an old healed reduced and internally fixated fracture of the distal left fibula fixated with plate and screws. ??There is a partially threaded screw fixating the left medial malleolus. No acute displaced fracture in the pelvis. ??There is a Delarosa catheter bladder temperature probe. ??There is contrast filling the bladder from recent CT scan. Procedure Note Gilberto Fuentes MD - 06/29/2019 EXAMINATION: XR ANKLE RIGHT 3 OR MORE VIEWS, XR PELVIS 1 OR 2 VIEWS, XR TIBIA FIBULA RIGHT2 VIEWS, XR TIBIA FIBULA LEFT 2 VIEWS, XR FEMUR LEFT 2 OR MORE VIEWS, XR KNEE LEFT 1 OR 2 VIEWS, XR ANKLE LEFT 3 OR MORE VIEWS HISTORY: Level 1 trauma, fall COMPARISON: CT same day of the chest, abdomen, pelvis, and left lower extremity FINDINGS: 3 views of the right ankle, 4 views of the right tibia and fibula, views of the left ankle, 4 views of the left fibula, 2 views of the left knee, 4 views of the left femur, and AP view of the pelvis are obtained. There is a mildly displaced intra-articular right medial malleolar fracture. There is soft tissue swelling about the medial ankle. There is a left total knee arthroplasty. There is a highly comminuted open periprosthetic fracture of the proximal left tibia with anterior and lateral displacement of the distal fracture fragment. There is a comminuted fracture of the proximal left fibula with anterior displacement of the distal fracture fragment. There is significant soft tissue swelling and locules of soft tissue gas in the left lower leg. The distal femoral component of the prostate is intact. No fracture involving the left femur. There is an old healed reduced and internally fixated fracture of the distal left fibula fixated with plate and screws. There is a partially threaded screw fixating the left medial malleolus. No acute displaced fracture in the pelvis. There is a Delarosa catheter bladder temperature probe. There is contrast filling the bladder from recent CT scan. IMPRESSION: 1. Open comminuted periprosthetic fracture of the proximal left tibia 2. Open comminuted fracture of the proximal left fibula 3. Mildly displaced intra-articular right medial malleolus fracture 4. No acute pelvic fracture. Dictated by: Luh Moffett M.D. The radiology attending physician has personally reviewed this study, and had reviewed and/or edited this written report and agrees with it. Electronically signed by: Gilberto Fuentes M.D. Mago Brian MD IMG XR PROCEDURES Fi nal Result * XR Ankle Right 3 or More Views (06/28/2019 7:18 PM HOME SALES SERVICE PROFESSIONAL) Anatomical Region Laterality Modality Lower Extremities, Ankle Right Compute d Radiography 06/28/2019 7:48 PM HOME SALES SERVICE PROFESSIONAL Impressions 06/29/2019 2:54 PM HOME SALES SERVICE PROFESSIONAL 1. ??Open comminuted periprosthetic fracture of the proximal left tibia 2. ??Open comminuted fracture of the proximal left fibula 3. ??Mildly displaced intra-articular right medial malleolus fracture 4. ??No acute pelvic fracture. Dictated by: Luh Moffett M.D. The radiology attending physician has personally reviewed this study, and had reviewed and/or edited this written report and agrees with it. Electronically signed by: Gilberto Fuentes M.D. Narrative 06/29/2019 2:54 PM HOME [employer] SERV[employer] PROFESSIONAL EXAMINATION: XR ANKLE RIGHT 3 OR MORE VIEWS, XR PELVIS 1 OR 2 VIEWS, XR TIBIA FIBULA RIGHT2 VIEWS, XR TIBIA FIBULA LEFT 2 VIEWS, XR FEMUR LEFT 2 OR MORE VIEWS, XR KNEE LEFT 1 OR 2 VIEWS, XR ANKLE LEFT 3 OR MORE VIEWS HISTORY: Level 1 trauma, fall COMPARISON: CT same day of the chest, abdomen, pelvis, and left lower extremity FINDINGS: 3 views of the right ankle, 4 views of the right tibia and fibula, views of the left ankle, 4 views of the left fibula, 2 views of the left knee, 4 views of the left femur, and AP view of the pelvis are obtained. There is a mildly displaced intra-articular right medial malleolar fracture. ??There is soft tissue swelling about the medial ankle. There is a left total knee arthroplasty. ??There is a highly comminuted open periprosthetic fracture of the proximal left tibia with anterior and lateral displacement of the distal fracture fragment. ??There is a comminuted fracture of the proximal left fibula with anterior displacement of the distal fracture fragment. ??There is significant soft tissue swelling and locules of soft tissue gas in the left lower leg. ??The distal femoral component of the prostate is intact. ??No fracture involving the left femur. There is an old healed reduced and internally fixated fracture of the distal left fibula fixated with plate and screws. ??There is a partially threaded screw fixating the left medial malleolus. No acute displaced fracture in the pelvis. ??There is a Delarosa catheter bladder temperature probe. ??There is contrast filling the bladder from recent CT scan. Procedure Note Gilberto Funetes MD - 06/29/2019 EXAMINATION: XR ANKLE RIGHT 3 OR MORE VIEWS, XR PELVIS 1 OR 2 VIEWS, XR TIBIA FIBULA RIGHT2 VIEWS, XR TIBIA FIBULA LEFT 2 VIEWS, XR FEMUR LEFT 2 OR MORE VIEWS, XR KNEE LEFT 1 OR 2 VIEWS, XR ANKLE LEFT 3 OR MORE VIEWS HISTORY: Level 1 trauma, fall COMPARISON: CT same day of the chest, abdomen, pelvis, and left lower extremity FINDINGS: 3 views of the right ankle, 4 views of the right tibia and fibula, views of the left ankle, 4 views of the left fibula, 2 views of the left knee, 4 views of the left femur, and AP view of the pelvis are obtained. There is a mildly displaced intra-articular right medial malleolar fracture. There is soft tissue swelling about the medial ankle. There is a left total knee arthroplasty. There is a highly comminuted open periprosthetic fracture of the proximal left tibia with anterior and lateral displacement of the distal fracture fragment. There is a comminuted fracture of the proximal left fibula with anterior displacement of the distal fracture fragment. There is significant soft tissue swelling and locules of soft tissue gas in the left lower leg. The distal femoral component of the prostate is intact. No fracture involving the left femur. There is an old healed reduced and internally fixated fracture of the distal left fibula fixated with plate and screws. There is a partially threaded screw fixating the left medial malleolus. No acute displaced fracture in the pelvis. There is a Delarosa catheter bladder temperature probe. There is contrast filling the bladder from recent CT scan. IMPRESSION: 1. Open comminuted periprosthetic fracture of the proximal left tibia 2. Open comminuted fracture of the proximal left fibula 3. Mildly displaced intra-articular right medial malleolus fracture 4. No acute pelvic fracture. Dictated by: Luh Moffett M.D. The radiology attending physician has personally reviewed this study, and had reviewed and/or edited this written report and agrees with it. Electronically signed by: Gilberto Fuentes M.D. Mago Brian MD IMG XR PROCEDURES Fi nal Result * Opiates Confirmation, Urine (06/28/2019 6:54 PM HOME SALES SERVICE PROFESSIONAL) Codeine Conf, Ur Does Not Confirm CutOff 50 ng/mL [facility] 6- Acetylmorphine Conf, Ur Does Not Confirm CutOff 10 ng/mL [facility] Oxycodone Conf, Ur Does Not Confirm CutOff 50 ng/mL [facility] Hydrocodone Conf, Ur Confirmed Positive CutOff 50 ng/mL [facility] Morphine Conf, Ur Confirmed Positive CutOff 50 ng/mL [facility] Hydromorphone Conf, Ur Does Not Confirm CutOff 50 ng/mL [facility] Oxymorphone Conf, Ur Does Not Confirm CutOff 50 ng/mL [facility] Urine 06/28/2019 6:54 PM HOME SALES SERVICE PROFESSIONAL 06/28/2019 7:06 PM HOME SALES SERVICE PROFESSIONAL us Forrest Begum MD LAB URINE ORDERABLES Final Re sult [facility] Department [place] [address] * Fentanyl Confirmation, Urine (06/28/2019 6:54 PM HOME SALES SERVICE PROFESSIONAL) Fentanyl Conf, Ur Confirmed Positive Cutoff 1 ng/mL [facility] Acetylfentanyl Conf, Ur Does Not Confirm CutOff 2 ng/mL [facility] Acrylfentanyl Conf, Ur Does Not Confirm CutOff 2 ng/mL [facility] Furanylfentanyl Conf, Ur Does Not Confirm CutOff 2 ng/mL [facility] Fentanyl Metabolite (Norfentanyl) Conf, Ur Does Not Confirm CutOff 10 ng/mL [facility] Urine 06/28/2019 6:54 PM HOME SALES SERVICE PROFESSIONAL 06/28/2019 7:06 PM HOME SALES SERVICE PROFESSIONAL us Forrest Begum MD LAB URINE ORDERABLES Final Re sult Performing Organization Address [facility] Co de Phone Number [facility] [place] [address] * (ABNORMAL) Urinalysis, microscopic only (06/28/2019 6:54 PM HOME SALES SERVICE PROFESSIONAL) Pathologist [facility] WBC, ur 6-10(A) 0 - 5 /HPF [facility] RBC, ur 0-2 0 - 2 /HPF [facility] Hyaline casts, ur 11-20(A) 0 - 10 /LPF [facility] Culture Reflex Comment Reflex conditions for urine culture (WBC >10) not met. [facility] Urine, indwelling catheter 06/28/2019 6:54 PM HOME SALES SERVICE PROFESSIONAL 06/28/2019 7:03 PM HOME SALES SERVICE PROFESSIONAL us Yoli Monzon MD LAB URINE ORDERABLES Final R esult Performing Organization Address [facility] Co de Phone Number [facility] [place] [employer] [place] [address] * (ABNORMAL) Potassium, whole blood (06/28/2019 6:54 PM HOME SALES SERVICE PROFESSIONAL) Pathologist [facility] Potassium, bld 5.6(H) 3.3 - 4.9 mmol/L [facility] Blood specimen (specimen) 06/28/2019 6:54 PM HOME SALES SERVICE PROFESSIONAL 06/28/2019 7:03 PM HOME SALES SERVICE PROFESSIONAL Narrative [facility] - 06/28/2019 7:13 PM HOME SALES SERVICE PROFESSIONAL [facility]LE[facility] LOCATION IS [address] us Yoli Monzon MD LAB BLOOD ORDERABLES Final R esult Performing Organization Address [facility] de Phone Number [facility] Department [place] [address] * (ABNORMAL) Blood gas, arterial (06/28/2019 6:54 PM HOME SALES SERVICE PROFESSIONAL) pH, Art 7.45 7.35 - 7.45 [facility] PCO2, Arterial 39 35 - 45 mmHg [facility] PO2, Arterial 192(H) 83 - 108 mmHg [facility] HCO3 Art (Calculated) 28 20 - 30 mmol/L [facility] BE, art 3 mmol/L [facility] Comment: Interpretive Data No Reference Range Established Current Interpretive Data was last revised on 2017 O2 Sat Art (Measured) 99(H) 90 - 95 % [facility] Blood specimen (specimen) (Blood, Arterial) 06/28/2019 6:54 PM HOME SALES SERVICE PROFESSIONAL 06/28/2019 7:00 PM HOME SALES SERVICE PROFESSIONAL Narrative [facility] - 06/28/2019 7:12 PM HOME SALES SERVICE PROFESSIONAL [facility]LE[facility] LOCATION IS [address] us Yoli Monzon MD LAB BLOOD ORDERABLES Final R esult Performing Organization Address [facility] Co de Phone Number [facility] Department [place] [address] * (ABNORMAL) Drugs of Abuse Screen, Urine with Reflex Confirmation (06/28/2019 6:54 PM HOME SALES SERVICE PROFESSIONAL) Amphetamine, ur Not Detected CutOff 500ng/mL [facility] Comment: Interpretive Data - Amphetamines: ??Samples containing greater than 500 ng/mL d-methamphetamine ??or other cross-reacting amphetamine compounds are reported as positive. ??Amphetamine immunoassays are subject to significant false positive rates due to cross-reactivity of non-amphetamine drugs. Current Interpretive Data was last reviewed 2018. Barbiturates, ur Detected(A) CutOff 200ng/mL [facility] Comment: Interpretive Data - Barbiturates: ??Samples containing greater than 200 ng/mL secobarbital or other cross-reacting barbiturate compounds are reported as positive. ??False positive and false negative results are possible. Current Interpretive Data was last reviewed 2018. Benzodiazepines, ur Not Detected CutOff 100ng/mL [facility] Comment: Interpretive Data - Benzodiazepines: ??Samples containing greater than 100 ng/mL nordiazepam or other cross-reacting compounds are reported as positive. ?? False positive and false negative results are possible. ?? Current Interpretive Data was last reviewed 2018. Cannabinoids, ur Not Detected CutOff 50 ng/mL [facility] Comment: Interpretive Data - Cannabinoids: ??Samples containing greater than 50 ng/mL delta-9 THC -COOH or other cross-reacting compounds are reported as positive. ??False positive and false negative results are possible. ?? Current Interpretive Data was last reviewed 2018. Cocaine, ur Not Detected CutOff 150ng/mL [facility] Comment: Interpretive Data - Cocaine: ??Samples containing greater than 150 ng/mL benzoylecgonine or other cross-reacting compounds are reported as positive. False positive and false negative results are possible. Current Interpretive Data was last reviewed 2018. Fentanyl, Ur Detected(A) Cutoff 1 ng/mL [facility] Comment: Interpretive Data - Fentanyls: ??Samples containing greater than 1 ng/mL fentanyl or other cross-reacting fentanyl compounds are reported as detected. ??False positive and false negative results are possible. Current Interpretive Data was last reviewed 2019. Methadone, ur Not Detected CutOff 300ng/mL [facility] Comment: Interpretive Data - Methadone: ??Samples containing greater than 300 ng/mL d,l-methadone or other cross-reacting compounds are reported as positive. ??False positive and false negative results are possible. Current Interpretive Data was last reviewed 2018. Opiates, ur Detected(A) CutOff 300ng/mL [facility] Comment: Interpretive Data - Opiates: ??Samples containing greater than 300 ng/mL morphine or other cross-reacting compounds are reported as positive. ??False positive and false negative results are possible. Current Interpretive Data was last reviewed 2018. Oxycodone, ur Not Detected CutOff 100ng/mL [facility] Comment: Interpretive Data - Oxycodone: ??Samples containing greater than 100 ng/mL oxycodone or other cross-reacting compounds are reported as positive. ??False positive and false negative results are possible. ?? Current Interpretive Data was last reviewed 2018. Phencyclidine, ur Not Detected CutOff 25 ng/mL [facility] Comment: Interpretive Data - Phencyclidine: ??Samples containing greater than 25 ng/mL phencyclidine or other cross-reacting compounds are reported as positive. ??False positive and false negative results are possible. ?? Current Interpretive Data was last reviewed 2018. Urine Creatinine 42 mg/dL [facility] Comment: Interpretive Data Urine Creatinine: < 10 mg/dL is extremely dilute = or > 10 but < 20 mg/dL is dilute = or > 20 mg/dL is normal Current Interpretive Data was last revised on 2017. Urine 06/28/2019 6:54 PM HOME SALES SERVICE PROFESSIONAL 06/28/2019 7:03 PM HOME SALES SERVICE PROFESSIONAL Narrative [facility] - 06/28/2019 7:47 PM HOME SALES SERVICE PROFESSIONAL [facility] LOCATION IS [address] ??Drug of Abuse screening is performed by immunoassay for medical purposes only. ??This is not to be used for Pain Management purposes. ??If Detected, confirmation testing will be performed for Amphetamines, Cocaine, Methadone, Opiates, Oxycodone or Phencyclidine. ??Drug of Abuse screening is performed by immunoassay for medical purposes only. ??This is not to be used for Pain Management purposes. ??If Detected, confirmation testing will be performed for Amphetamines, Cocaine, Methadone, Opiates, Oxycodone or Phencyclidine. us Forrest Begum MD LAB URINE ORDERABLES Final Re sult [facility] [place] [address] * (ABNORMAL) Urinalysis reflex to microscopic and culture Urine, indwelling catheter (06/28/2019 6:54PM HOME SALES SERVICE PROFESSIONAL) Color, ur Yellow Yellow [facility] Clarity, ur Clear Clear [facility] Specific gravity, ur 1.013 1.010 - 1.025 [facility] pH, urine 6 [facility] Protein, ur ql 1+(A) Negative [facility] Glucose, ur ql Negative Negative [facility] Ketones, ur Negative Negative [facility] Bilirubin, ur Negative Negative [facility] Blood, ur Negative Negative [facility] Urobilinogen, ur <2.0 <2.0 mg/dL [facility] Nitrite, ur Negative Negative [facility] Leukocyte esterase, ur 1+(A) Negative [facility] UA reflex comment Reflex to microscopic UA will be performed. [facility] Urine, indwelling catheter 06/28/2019 6:54 PM HOME SALES SERVICE PROFESSIONAL 06/28/2019 7:03 PM HOME SALES SERVICE PROFESSIONAL Narrative [facility] - 06/28/2019 7:09 PM HOME SALES SERVICE PROFESSIONAL [facility] LOCATION IS [address] Urine pH is affected by diet, medications, systemic acid-base disturbances, and renal tubular function. ??pH may affect urinary stone formation. ??For example, urine pH below 6.0 may help reduce the tendency for calcium phosphate stones and pH greater than 6.0 may reduce the tendency for uric acid stone formation. Source: [facility] [employer]. Last revised 08-05-2017 us Yoli Monzon MD LAB MICROBIOLOGY - GENERAL O RDERABLES Final Result [facility] [place] [address] * (ABNORMAL) ECG 12-LEAD (06/28/2019 6:51 PM HOME SALES SERVICE PROFESSIONAL) Narrative [facility] - 06/28/2019 6:51 PM HOME SALES SERVICE PROFESSIONAL Forrest Begum MD ? 06/28/2019 ??6:52 PM ECG 12 lead Date/Time: 06/28/2019 6:51 PM Performed by: Forrest Begum MD Authorized by: Yoli Monzon MD Rate: ??ECG rate: ??77 ??ECG rate assessment: normal ?? Rhythm: ??Rhythm: sinus rhythm ?? Ectopy: ??Ectopy: none ?? QRS: ??QRS axis: ??Left ??QRS intervals: ??Normal Conduction: ??Conduction: normal ?? ST segments: ??ST segments: ??Normal T waves: ??T waves: normal ?? Other findings: ??Other findings: LVH ?? Previous ECG: ??Previous ECG: ??Compared to current ??Date of previous ECG: ??06/09/2019 ??Similarity: ??No change Interpretation: ??Interpretation: abnormal ?? Procedure Note Forrest Begum MD - 06/28/2019 6:51 PM CST Procedure ECG 12 lead Date/Time: 06/28/2019 6:51 PM Performed by: Forrest Begum MD Authorized by: Yoli Monzon MD Rate: ECG rate: 77 ECG rate assessment: normal Rhythm: Rhythm: sinus rhythm Ectopy: Ectopy: none QRS: QRS axis: Left QRS intervals: Normal Conduction: Conduction: normal ST segments: ST segments: Normal T waves: T waves: normal Other findings: Other findings: LVH Previous ECG: Previous ECG: Compared to current Date of previous EC06/09/2019 Similarity: No change Interpretation: Interpretation: abnormal Forrest Begum MD 06/28/19 0830 us Yoli Monzon MD ECG ORDERABLES Final Result [facility] * CT Chest Abdomen Pelvis W Contrast (06/28/2019 6:27 PM HOME [employer]) Anatomical Region Laterality Modality Body N/A Computed Tomogra phy 06/28/2019 7:21 PM HOME [employer]ES [employer]ICE PROFESSIONAL Impressions 06/29/2019 2:23 PM HOME [employer]ES SERVICE PROFESSIONAL 1. ??No acute intra-abdominal traumatic injury. 2. ??Scattered, biapical groundglass opacities with septal line thickening may represent mild pulmonary edema. 3. ??Mild bibasilar atelectasis. Dictated by: Mikhail Beyer The radiology attending physician has personally reviewed this study, and had reviewed and/or edited this written report and agrees with it. Electronically signed by: Gilberto Fuentes M.D. Narrative 06/29/2019 2:23 PM [employer] EXAMINATION: ??Computed tomography of the chest, abdomen and pelvis with intravenous contrast HISTORY: 68-year-old female presenting as level 1 trauma after fall from standing height. TECHNIQUE: ??Transaxial computed tomographic images of the chest, abdomen and pelvis were obtained with intravenous contrast according to the standard protocol after the uneventful administration of 125 mL Opti-Ray 350 intravenous contrast. COMPARISON: None available. FINDINGS: ?? Chest: The examination is limited due to motion artifact. Scattered, upper lobe predominant groundglass opacities with associated septal line thickening are identified. ??Mild bibasilar, dependent reticular-nodular opacities are favored represent atelectasis, or less likely aspiration. ??No dense consolidation, pleural effusion, or pneumothorax. ??An endotracheal tube tip terminates in the proximal thoracic trachea. ??The tracheobronchial tree is otherwise patent. The heart size is normal without pericardial effusion. ??The left-sided thoracic aorta is normal in course and caliber. ??There is significant motion at the aortic root. ??There is calcified atherosclerosis of the aortic arch, coronary arteries, and mitral valve annulus. ??A small locule of gas anterior to the proximal descending thoracic aorta is favored represent partially aerated lung within atelectasis (series: 1, axial image: 32). ??The visualized portions of the thyroid lobe are normal. ??No suspicious subclavicular, axillary, or hilar lymphadenopathy. Abdomen/Pelvis: Diffuse hepatic steatosis is identified. ??No suspicious focal hepatic lesion is noted. ??The portal venous system is patent. ??No bile duct dilation is identified. ??The gallbladder, adrenal glands, pancreas, and spleen are normal. ??The kidneys symmetrically enhance and exhibit normal size and morphology bilaterally. ??There is a tiny 3 mm non-obstructing renal calculus in the right kidney inferior pole (series: 1, axial image: 157). ??There is also a tiny 3 mm nonobstructing renal calculus in the left kidney inferior pole (series: 1, axial image: 58). ??No evidence of hydronephrosis. ??The urinary bladder is normal. ??The uterus is surgically absent. ??A 1.1 x 1.7 cm mildly peripherally enhancing lesion abutting the left posterior lateral wall of the bladder (series: 1, axial image: 54) may represent a bladder diverticulum or seroma; correlation with prior imaging may be helpful to document stability.. An enteric tube tip terminates in the gastric antrum. ??The small and large bowel are normal in course and caliber without evidence of abnormal wall thickening or obstruction. ??The appendix is not visualized. ??No evidence of pneumoperitoneum or pelvic free fluid. ??A small fat-containing umbilical hernia is noted. ??There is diffuse subcutaneous fat stranding involving both flanks in the ventral abdominal wall. The abdominal aorta is normal in course and caliber and exhibits scattered calcified atherosclerosis. ??A right common femoral central venous catheter tip terminates in the right external iliac vein. ??The mesenteric vasculature is grossly patent. ??No suspicious abdominal or pelvic lymphadenopathy. An old right posterior 5th rib fractures identified. ??No acute fractures identified. ??There is a small bone island in the right lesser trochanter. ??There is multilevel thoracolumbar degenerative disc disease. Procedure Note Gilberto Fuentes MD - 06/29/2019 EXAMINATION: Computed tomography of the chest, abdomen and pelvis with intravenous contrast HISTORY: 68-year-old female presenting as level 1 trauma after fall from standing height. TECHNIQUE: Transaxial computed tomographic images of the chest, abdomen and pelvis were obtained with intravenous contrast according to the standard protocol after the uneventful administration of 125 mL Opti-Ray 350 intravenous contrast. COMPARISON: None available. FINDINGS: Chest: The examination is limited due to motion artifact. Scattered, upper lobe predominant groundglass opacities with associated septal line thickening are identified. Mild bibasilar, dependent reticular-nodular opacities are favored represent atelectasis, or less likely aspiration. No dense consolidation, pleural effusion, or pneumothorax. An endotracheal tube tip terminates in the proximal thoracic trachea. The tracheobronchial tree is otherwise patent. The heart size is normal without pericardial effusion. The left-sided thoracic aorta is normal in course and caliber. There is significant motion at the aortic root. There is calcified atherosclerosis of the aortic arch, coronary arteries, and mitral valve annulus. A small locule of gas anterior to the proximal descending thoracic aorta is favored represent partially aerated lung within atelectasis (series: 1, axial image: 32). The visualized portions of the thyroid lobe are normal. No suspicious subclavicular, axillary, or hilar lymphadenopathy. Abdomen/Pelvis: Diffuse hepatic steatosis is identified. No suspicious focal hepatic lesion is noted. The portal venous system is patent. No bile duct dilation is identified. The gallbladder, adrenal glands, pancreas, and spleen are normal. The kidneys symmetrically enhance and exhibit normal size and morphology bilaterally. There is a tiny 3 mm non-obstructing renal calculus in the right kidney inferior pole (series: 1, axial image: 157). There is also a tiny 3 mm nonobstructing renal calculus in the left kidney inferior pole (series: 1, axial image: 58). No evidence of hydronephrosis. The urinary bladder is normal. The uterus is surgically absent. A 1.1 x 1.7 cm mildly peripherally enhancing lesion abutting the left posterior lateral wall of the bladder (series: 1, axial image: 54) may represent a bladder diverticulum or seroma; correlation with prior imaging may be helpful to document stability.. An enteric tube tip terminates in the gastric antrum. The small and large bowel are normal in course and caliber without evidence of abnormal wall thickening or obstruction. The appendix is not visualized. No evidence of pneumoperitoneum or pelvic free fluid. A small fat-containing umbilical hernia is noted. There is diffuse subcutaneous fat stranding involving both flanks in the ventral abdominal wall. The abdominal aorta is normal in course and caliber and exhibits scattered calcified atherosclerosis. A right common femoral central venous catheter tip terminates in the right external iliac vein. The mesenteric vasculature is grossly patent. No suspicious abdominal or pelvic lymphadenopathy. An old right posterior 5th rib fractures identified. No acute fractures identified. There is a small bone island in the right lesser trochanter. There is multilevel thoracolumbar degenerative disc disease. IMPRESSION: 1. No acute intra-abdominal traumatic injury. 2. Scattered, biapical groundglass opacities with septal line thickening may represent mild pulmonary edema. 3. Mild bibasilar atelectasis. Dictated by: Mikhail Beyer The radiology attending physician has personally reviewed this study, and had reviewed and/or edited this written report and agrees with it. Electronically signed by: Gilberto Fuentes M.D. us Mago Brian MD IMG CT PROCEDURES Fi nal Result * CTA Lower Extremity Left (06/28/2019 6:27 PM HOME [employer] PROFESSIONAL) Anatomical Region Laterality Modality Lower Extremities Left Computed Tomog maryann 06/28/2019 7:48 PM HOME [employer] PROF[employer]AL Impressions 06/29/2019 2:46 PM HOME [employer] PROFESSIONAL 1. ??Left lower extremity: Three-vessel runoff. 2. ??Non-opacification of a left peroneal artery proximal segment with distal reconstitution is favored to represent focal vasospasm/stenosis secondary to extrinsic arterial compression from the surrounding muscular edema. ??No evidence of arterial injury. 3. ??Markedly comminuted, open, angulated, and displaced periprosthetic fracture of the left proximal tibia. 4. ??Comminuted, angulated, and displaced fracture of the left proximal fibula. 5. ??Marked edema throughout the muscle compartments of the distal left lower extremity. Dictated by: Mikhail Beyer The radiology attending physician has personally reviewed this study, and had reviewed and/or edited this written report and agrees with it. Electronically signed by: Gilberto Fuentes M.D. Narrative 06/29/2019 2:46 PM HOME [employer] PROFESSIONAL EXAMINATION: ??CT ANGIOGRAPHY OF THE LEFT LOWER EXTREMITYWITH CONTRAST HISTORY: 68-year-old female presenting with left proximal tibial shaft Sex fracture after mechanical ground level fall. TECHNIQUE: CT angiography of the left lower extremity was performed following the uneventful intravenous administration of 125 ml Optiray-350. Vascular 3D images were generated on a dedicated workstation and also reviewed. FINDINGS: No prior studies are available for comparison. VASCULAR FINDINGS: Pelvic Vessels: Scattered, nonobstructive calcified atherosclerosis is present in the inferior abdominal aorta. R. Common iliac artery: ??no significant stenosis R. External iliac artery: ??no significant stenosis R. Internal iliac artery: ??no significant stenosis L. Common iliac artery: ??no significant stenosis L. External iliac artery: ??no significant stenosis L. Internal iliac artery: ??no significant stenosis Left Lower Extremity: L. Common femoral artery: ??no significant stenosis L. Profunda femoris artery: ??no significant stenosis L. Superficial femoral artery: ??no significant stenosis L. Popliteal artery: ??There is no significant stenosis or vascular injury to the left proximal popliteal artery. ??Evaluation of the distal left popliteal artery is markedly limited due to metallic artifact from the adjacent arthroplasty. L. Anterior tibial artery: ??no significant stenosis. ??No evidence of vascular injury to the anterior tibial artery. ??No fracture fragment closely approximates the left anterior tibial artery; the closest fracture fragment maintains a 7 mm interval from the anterior tibial artery (series: 5, axial image: 764). L. Tibioperoneal trunk: ??no significant stenosis L. Posterior tibial artery: ??no significant stenosis L. Peroneal artery: ??There is focal nonopacification of the left peroneal artery without evidence of arterial extravasation or pseudoaneurysm. ??There is distal reconstitution of the left peroneal artery that remains opacified throughout its remaining course. L. Dorsalis pedis artery: ??no significant stenosis L. Plantar artery: ??no significant stenosis NON-VASCULAR FINDINGS: There is a markedly comminuted, open farzana-prosthetic fracture of the left proximal tibia with anterolateral apex angulation, one shaft width anterior displacement, and mild external rotation of the distal fracture fragment. ??A 2.3 x 2.5 cm anterior tibial fracture fragment is displaced approximately 9 mm from the tibial component. ??There is proximal fracture propagation along the posterior tibial shaft toward the articular surface. ??There is a markedly comminuted left proximal fibular fracture. ??There is marked muscular edema throughout both the anterior and posterior compartments of the distal left lower extremity. ??There is marked subcutaneous edema. ??No evidence of periprosthetic fracture surrounding the femoral component. There are old, healed, reduced and internally fixated left medial and lateral malleoli fractures. Procedure Note Gilberto Fuentes MD - 06/29/2019 EXAMINATION: CT ANGIOGRAPHY OF THE LEFT LOWER EXTREMITYWITH CONTRAST HISTORY: 68-year-old female presenting with left proximal tibial shaft Sex fracture after mechanical ground level fall. TECHNIQUE: CT angiography of the left lower extremity was performed following the uneventful intravenous administration of 125 ml Optiray-350. Vascular 3D images were generated on a dedicated workstation and also reviewed. FINDINGS: No prior studies are available for comparison. VASCULAR FINDINGS: Pelvic Vessels: Scattered, nonobstructive calcified atherosclerosis is present in the inferior abdominal aorta. R. Common iliac artery: no significant stenosis R. External iliac artery: no significant stenosis R. Internal iliac artery: no significant stenosis L. Common iliac artery: no significant stenosis L. External iliac artery: no significant stenosis L. Internal iliac artery: no significant stenosis Left Lower Extremity: L. Common femoral artery: no significant stenosis L. Profunda femoris artery: no significant stenosis L. Superficial femoral artery: no significant stenosis L. Popliteal artery: There is no significant stenosis or vascular injury to the left proximal popliteal artery. Evaluation of the distal left popliteal artery is markedly limited due to metallic artifact from the adjacent arthroplasty. L. Anterior tibial artery: no significant stenosis. No evidence of vascular injury to the anterior tibial artery. No fracture fragment closely approximates the left anterior tibial artery; the closest fracture fragment maintains a 7 mm interval from the anterior tibial artery (series: 5, axial image: 764). L. Tibioperoneal trunk: no significant stenosis L. Posterior tibial artery: no significant stenosis L. Peroneal artery: There is focal nonopacification of the left peroneal artery without evidence of arterial extravasation or pseudoaneurysm. There is distal reconstitution of the left peroneal artery that remains opacified throughout its remaining course. L. Dorsalis pedis artery: no significant stenosis L. Plantar artery: no significant stenosis NON-VASCULAR FINDINGS: There is a markedly comminuted, open farzana-prosthetic fracture of the left proximal tibia with anterolateral apex angulation, one shaft width anterior displacement, and mild external rotation of the distal fracture fragment. A 2.3 x 2.5 cm anterior tibial fracture fragment is displaced approximately 9 mm from the tibial component. There is proximal fracture propagation along the posterior tibial shaft toward the articular surface. There is a markedly comminuted left proximal fibular fracture. There is marked muscular edema throughout both the anterior and posterior compartments of the distal left lower extremity. There is marked subcutaneous edema. No evidence of periprosthetic fracture surrounding the femoral component. There are old, healed, reduced and internally fixated left medial and lateral malleoli fractures. IMPRESSION: 1. Left lower extremity: Three-vessel runoff. 2. Non-opacification of a left peroneal artery proximal segment with distal reconstitution is favored to represent focal vasospasm/stenosis secondary to extrinsic arterial compression from the surrounding muscular edema. No evidence of arterial injury. 3. Markedly comminuted, open, angulated, and displaced periprosthetic fracture of the left proximal tibia. 4. Comminuted, angulated, and displaced fracture of the left proximal fibula. 5. Marked edema throughout the muscle compartments of the distal left lower extremity. Dictated by: Mikhail Beyer The radiology attending physician has personally reviewed this study, and had reviewed and/or edited this written report and agrees with it. Electronically signed by: Gilberto Fuentes M.D. us Mago Brian MD IMG CT PROCEDURES Fi nal Result * CT Head and Cervical Spine WO Contrast (06/28/2019 6:21 PM HOME SALES [employer]ICE PROFESSIONAL) Anatomical Region Laterality Modality Head and Neck N/A Computed Tomogra phy 06/28/2019 6:59 PM HOME [employer]ES SERVICE PROFESSIONAL Impressions 06/29/2019 10:45 AM HOME [employer]ES SERVICE PROFESSIONAL 1. No acute intracranial abnormality, such as hemorrhage. 2. No evidence of acute fracture in the cervical spine. 3. Recommend follow up of the Incidental enlarged pituitary with MRI pituitary protocol if clinically indicated. Dictated by: Adithya Murphy M.D. The radiology attending physician has personally reviewed this study, and had reviewed and/or edited this written report and agrees with it. Electronically signed by: Krupa Grossman M.D. Narrative 06/29/2019 10:45 AM HOME SALES SERVICE PROFESSIONAL EXAMINATION: Noncontrast head CT CT of the cervical spine without contrast HISTORY: 68-year-old woman with open left tibia fibula fracture after fall from standing. Patient complains of pain in her head and neck. TECHNIQUE: Noncontrast CT of the brain was performed with images acquired from skull base to vertex. Computed tomography of the cervical spine was performed without contrast according to standard protocol. COMPARISON: None available FINDINGS: Topogram demonstrates no lytic lesions or fractures. There is diffuse cerebral atrophy with mild expected dilatation of the lateral ventricles. 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 ??The pituitary gland is prominent, measuring up to 1.1 cm in greatest dimension. ??There is no acute intracranial hemorrhage. Ventricles are of normal size and morphology. No mass effect or midline shift is present. The jerome-white matter differentiation is normal. The visualized portions of the orbits are normal. The visualized portions of the mastoids are normal. The visualized portions of the paranasal sinuses are normal. No fractures are identified. There is mild retrolisthesis of C5 on C6. There is no acute fracture. Vertebral bodies are normal in height without compression fractures. Multilevel degenerative changes are noted throughout the cervical spine. There is no spinal canal stenosis. The craniocervical junction is normal. Multilevel facet and uncovertebral joint arthropathy results in varying degrees of neuroforaminal stenosis. No soft tissue abnormality is identified. ??Calcific atherosclerotic involvement of the aortic arch is noted. Procedure Note Krupa Grossman MD - 06/29/2019 EXAMINATION: Noncontrast head CT CT of the cervical spine without contrast HISTORY: 68-year-old woman with open left tibia fibula fracture after fall from standing. Patient complains of pain in her head and neck. TECHNIQUE: Noncontrast CT of the brain was performed with images acquired from skull base to vertex. Computed tomography of the cervical spine was performed without contrast according to standard protocol. COMPARISON: None available FINDINGS: Topogram demonstrates no lytic lesions or fractures. There is diffuse cerebral atrophy with mild expected dilatation of the lateral ventricles. 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 The pituitary gland is prominent, measuring up to 1.1 cm in greatest dimension. There is no acute intracranial hemorrhage. Ventricles are of normal size and morphology. No mass effect or midline shift is present. The jerome-white matter differentiation is normal. The visualized portions of the orbits are normal. The visualized portions of the mastoids are normal. The visualized portions of the paranasal sinuses are normal. No fractures are identified. There is mild retrolisthesis of C5 on C6. There is no acute fracture. Vertebral bodies are normal in height without compression fractures. Multilevel degenerative changes are noted throughout the cervical spine. There is no spinal canal stenosis. The craniocervical junction is normal. Multilevel facet and uncovertebral joint arthropathy results in varying degrees of neuroforaminal stenosis. No soft tissue abnormality is identified. Calcific atherosclerotic involvement of the aortic arch is noted. IMPRESSION: 1. No acute intracranial abnormality, such as hemorrhage. 2. No evidence of acute fracture in the cervical spine. 3. Recommend follow up of the Incidental enlarged pituitary with MRI pituitary protocol if clinically indicated. Dictated by: Adithya Murphy M.D. The radiology attending physician has personally reviewed this study, and had reviewed and/or edited this written report and agrees with it. Electronically signed by: Krupa Grossman M.D. us Mago Brian MD IMG CT PROCEDURES Fi nal Result * ED INTUBATION (06/28/2019 5:37 PM HOME SALES SERVICE PROFESSIONAL) Narrative Forrest Begum MD - 06/28/2019 5:37 PM HOME [employer] SERVICE PROFESSIONAL Mago Brian MD ? 06/28/2019 ??5:39 PM Intubation Date/Time: 06/28/2019 5:37 PM Performed by: Mago Brian MD Authorized by: Forrest Begum MD [place] Protocol: ??RN Notified of Procedure: yes ?Informed consent: ??Unable to obtain due to emergent status ??Patient's stated name/ matches armband: ??Other (enter comment) ??Consent form signed, dated, timed; matches correct patient, intended procedure and site: ??No consent form due to emergent status ??Imaging: ??N/a ??Lab/Diag test results: ??N/a ??Supplies, devices and special equipment are available: yes ?Site/side marked: n/a ?? Pre-procedure details: ??Patient status: ??Awake ??Mallampati score: ??III - soft palate, base of uvula visible ??Pretreatment medications: ??Fentanyl ??Paralytics: ??Succinylcholine Procedure details: ??Preoxygenation: ??None ??CPR in progress: no ?Intubation method: ??Oral ??Oral intubation technique: ??Direct ??Laryngoscope blade: ??Mac 3 ??Tube size (mm): ??7.5 ??Tube type: ??Cuffed ??Number of attempts: ??1 ??Ventilation between attempts: no ?Cricoid pressure: no ?Tube visualized through cords: yes ?? Placement assessment: ??ETT to teeth: ??19 ??Tube secured with: ??ETT triplett ??Breath sounds: ??Equal ??Placement verification: chest rise, condensation, direct visualization and ETCO2 detector ?? Post-procedure details: ??Patient tolerance of procedure: ??Tolerated well, no immediate complications Post Procedure Debrief: ??All guidewires, needles, sponges or other items are accounted for: yes ?Any special post procedure monitoring, testing or other considerations: n/a ?All specimens identified, labeled and matched to patient identification: n/a ?Responsible democrat for transporting specimen(s) to lab determined: n/a ?? Forrest Begum MD IN CLINIC/BEDSIDE ORDERABLES Final Result * (ABNORMAL) Extrensic thromboelastometry (EXTEM) (06/28/2019 5:35 PM HOME [employer] SERVICE PROFESSIONAL) Clotting Time-Extrinsic 81(H) 42 - 60 sec [facility] Clot Formation Time-Extrinsic 145(H) 45 - 131 sec [facility] Angle-Extrinsi c 62(L) 65 - 83 Degree [facility] Max Clot Firmness-Extri nsic 51(L) 53 - 75 mm [facility] Lysis 30-Extrinsic 100 85 - 100 % [facility] Blood specimen (specimen) 06/28/2019 5:35 PM HOME [employer] SERVICE PROFESSIONAL 06/28/2019 5:40 PM HOME SALES SERVICE PROFESSIONAL Narrative [facility] - 06/28/2019 6:48 PM HOME SALES SERVICE PROFESSIONAL THE COLLECTION LOCATION IS [address] Forrest Begum MD LAB BLOOD ORDERABLES Final Re sult [facility] One [facility] [place] [address] * Thrombocyte inhibited fibrinogen (FIBTEM) (06/28/2019 5:35 PM HOME SALES SERVICE PROFESSIONAL) Maximum Clot Firm-Fibrinogen 12 9 - 29 mm [facility] Blood specimen (specimen) 06/28/2019 5:35 PM HOME SALES SERVICE PROFESSIONAL 06/28/2019 5:40 PM HOME SALES SERVICE PROFESSIONAL Narrative [facility] - 06/28/2019 6:48 PM HOME SALES SERVICE PROFESSIONAL THE COLLECTION LOCATION IS [facility] [id number] Forrest Begum MD LAB BLOOD ORDERABLES Final Re sult Performing Organization Address [facility]/ZIP Co de Phone Number [facility] [place] [address] * (ABNORMAL) Blood gas, venous (06/28/2019 5:35 PM HOME SALES SERVICE PROFESSIONAL) pH, Venous 7.27(L) 7.32 - 7.43 [facility] PCO2, Venous 63(H) 40 - 50 mmHg [facility] PO2, Venous 30 mmHg [facility] Comment: Interpretive Data No Reference Range Established Current Interpretive Data was last revised on 2017. HCO3 Venous, Calculated 30 20 - 30 mmol/L [facility] BE, venous 1 mmol/L [facility] Comment: Interpretive Data No Reference Range Established Current Interpretive Data was last revised on 2017. Blood specimen (specimen) 06/28/2019 5:35 PM HOME SALES SERVICE PROFESSIONAL 06/28/2019 5:40 PM HOME SALES SERVICE PROFESSIONAL Narrative [facility] - 06/28/2019 5:45 PM HOME SALES SERVICE PROFESSIONAL THE BJ COLLECTION LOCATION IS [address] Forrest Begum MD LAB BLOOD ORDERABLES Final Re sult Performing Organization Address [facility] Co de Phone Number [facility] [place] [address] * (ABNORMAL) POCT creatinine (06/28/2019 5:27 PM HOME SALES SERVICE PROFESSIONAL) Creatinine POC 1.4(H) 0.6 - 1.1 mg/dL [facility] Blood specimen (specimen) 06/28/2019 5:27 PM HOME SALES SERVICE PROFESSIONAL 06/28/2019 5:27 PM HOME SALES SERVICE PROFESSIONAL Forrest Begum MD LAB POCT ORDERABLES - DEVICE Final Result Performing Organization Address City/[facility]/ZIP Co de Phone Number [facility] [place] [address] * POCT lactate (06/28/2019 5:23 PM HOME SALES SERVICE PROFESSIONAL) Pathologist [facility] Lactate POC i-STAT 1.5 0.7 - 2.2 mmol/L [facility] Blood specimen (specimen) 06/28/2019 5:23 PM HOME SALES SERVICE PROFESSIONAL 06/28/2019 5:23 PM HOME SALES SERVICE PROFESSIONAL Forrest Begum MD LAB POCT ORDERABLES - DEVICE Final Result Performing Organization Address [facility] de Phone Number [facility] [place] [address] * POCT glucose (06/28/2019 5:18 PM HOME SALES SERVICE PROFESSIONAL) [facility] Glucose, POC 161 70 - 199 mg/dL [facility] Blood specimen (specimen) 06/28/2019 5:18 PM HOME SALES SERVICE PROFESSIONAL 06/28/2019 5:18 PM HOME SALES SERVICE PROFESSIONAL Forrest Begum MD LAB POCT ORDERABLES - DEVICE Final Result Performing Organization Address [facility] de Phone Number [facility] [place] [address] * [place] INSJ NON-TUNNELED CENTRAL VENOUS CATH AGE 5 YR/> (06/28/2019 5:10 PM HOME SALES SERVICE PROFESSIONAL) Zana Meyer MD - 06/28/2019 5:10 PM HOME SALES SERVICE PROFESSIONAL Zana Franklin MD ? 07/04/2019 10:20 AM Central Line Insertion Date/Time: 06/29/2019 3:53 AM Performed by: Zana Franklin MD Authorized by: Zana Franklin MD [place] Protocol: RN Notified of Procedure: yes ?? Informed consent: ??Unable to obtain due to emergent status Patient's stated name/ matches armband: ??Patient unable to verbalize - armband matched to name and within medical record Consent form signed, dated, timed; matches correct patient, intended procedure and site: ??No consent form due to emergent status Supplies, devices and special equipment are available: yes ?? Have non- routine considerations been assessed?: Yes ?? Indications: ??Vascular access Anesthesia (see MAR for exact dosage) Anesthesia method: ??None Patient position: ??Flat Skin preparation: ??Skin prepped with 2% chlorhexidine Provider preparation: ??Gloves, gown, handwashing, mask and partial body drape Location: ??Right femoral Ultrasound guidance: ??Used for site marking, used for needle insertion, landmarks identified and sterile probe cover used Assessment: ??Blood return through all ports Catheter type: ??Introducer sheath Needle inserted, vein idenitified then guidewire inserted easily into vein: Yes ?? Number of attempts: ??2 Successful placement: Yes ?? Line securement: ??Line sutured and dressing applied Patient tolerance: ??Patient tolerated the procedure well with no immediate complications Post Procedure Debrief: All guidewires, needles, sponges or other items are accounted for: yes ?? Line placed in a clean but not sterile fashion due to hypotension and need for large bore IV access. Procedure done by resident. I was present for entire portion of procedure. Zana Franklin MD IN CLINIC/BEDSIDE ORDERAB LES Edited Result - Final * Troponin I (06/28/2019 5:02 PM HOME SALES SERVICE PROFESSIONAL) Troponin I <0.03 0.00 - 0.03 ng/mL [facility] Comment: Interpretive Data: Normal plasma Troponin I concentrations can reach 1 ng/mL in the first two weeks of life and slowly decrease to adult levels (<0.03 ng/mL) by the age of 3 months. > 3 months ??<0.03 ng/mL > or = 18 years Serial determinations are recommended for the diagnosis of myocardial infarction. ??Temporal rise and fall are consistent with myocardial infarction when at least one value is above the 99th percentile upper reference limit for Troponin assay. References: 1. Clin Chem 2013;59:[id number] 2. Journal of the [place] [employer] 2012;60:1581-98 Current Interpretive Data Last Revised Date: 2018. Blood specimen (specimen) 06/28/2019 5:02 PM HOME SALES SERVICE PROFESSIONAL 06/28/2019 5:38 PM HOME SALES SERVICE PROFESSIONAL Forrest Begum MD LAB BLOOD ORDERABLES Final Re sult Performing Organization Address [facility] [place] [address] * Ethanol (06/28/2019 5:02 PM HOME SALES SERVICE PROFESSIONAL) Ethanol <10 <=10 mg/dL [facility] Comment: Interpretive Data Legal limit of intoxication > or = 80 mg/dL Levels > or = 400 mg/dL are potentially TOXIC. Current interpretive data was last revised on 2018. Blood specimen (specimen) 06/28/2019 5:02 PM HOME SALES SERVICE PROFESSIONAL 06/28/2019 5:38 PM HOME SALES SERVICE PROFESSIONAL us Forrest Begum MD LAB BLOOD ORDERABLES Final Re sult Performing Organization Address [facility] Co de Phone Number [facility] [place] [address] * Creatine kinase (CK), total (06/28/2019 5:02 PM HOME SALES SERVICE PROFESSIONAL) CK 81 30 - 200 Units/L [facility] Blood specimen (specimen) 06/28/2019 5:02 PM HOME SALES SERVICE PROFESSIONAL 06/28/2019 5:38 PM HOME SALES SERVICE PROFESSIONAL Forrest Begum MD LAB BLOOD ORDERABLES Final Re sult Performing Organization Address [facility] [place] [address] * Critical Result Callback Chemistry (06/28/2019 5:02 PM HOME SALES SERVICE PROFESSIONAL) Date Notified [id number] [facility] Time Notified 1815 [facility] TestName [facility] Called/Read Back Mago BEJARANO [facility] Credentials DARCI [facility] Called By Katelynn Hanley [facility] Blood specimen (specimen) 06/28/2019 5:02 PM HOME SALES SERVICE PROFESSIONAL 06/28/2019 5:38 PM HOME SALES SERVICE PROFESSIONAL us Yoli Monzon MD LAB BLOOD ORDERABLES Final R esult [facility] [place] [address] * (ABNORMAL) Differential, auto (06/28/2019 5:02 PM HOME SALES SERVICE PROFESSIONAL) Neutrophil abs 3.0 1.7 - 6.5 K/cumm [facility] Imm gran abs 0.2(H) 0.0 - 0.1 K/cumm [facility] Lymphocyte abs 3.1 0.8 - 3.3 K/cumm [facility] Monocyte abs 0.3 0.2 - 0.8 K/cumm [facility] Eosinophil abs 0.1 0.0 - 0.5 K/cumm [facility] Basophil abs 0.0 0.0 - 0.1 K/cumm [facility] Neutrophil pct 44.6 % [facility] Comment: Interpretive Data Percent cell count reference ranges are not reported, since discordance with absolute values may lead to misinterpretation of CBC data. Current Interpretive Data was last revised on 2017. Imm gran pct 2.5 % [facility] Comment: Interpretive Data Percent cell count reference ranges are not reported, since discordance with absolute values may lead to misinterpretation of CBC data. Current Interpretive Data was last revised on 2017. Lymphocyte pct 46.5 % [facility] Comment: Interpretive Data Percent cell count reference ranges are not reported, since discordance with absolute values may lead to misinterpretation of CBC data. Current Interpretive Data was last revised on 2017. Monocyte pct 5.1 % [facility] Comment: Interpretive Data Percent cell count reference ranges are not reported, since discordance with absolute values may lead to misinterpretation of CBC data. Current Interpretive Data was last revised on 2017. Eosinophil pct 0.9 % [facility] Comment: Interpretive Data Percent cell count reference ranges are not reported, since discordance with absolute values may lead to misinterpretation of CBC data. Current Interpretive Data was last revised on 2017. Basophil pct 0.4 % [facility] Comment: Interpretive Data Percent cell count reference ranges are not reported, since discordance with absolute values may lead to misinterpretation of CBC data. Current Interpretive Data was last revised on 2017. Blood specimen (specimen) 06/28/2019 5:02 PM HOME SALES SERVICE PROFESSIONAL 06/28/2019 5:38 PM HOME SALES SERVICE PROFESSIONAL us Yoli Monzon MD LAB BLOOD ORDERABLES Final R esult Performing Organization Address City/[facility]/ZIP Co de Phone Number [facility] [place] [address] * VerifyNow aspirin (06/28/2019 5:02 PM HOME SALES SERVICE PROFESSIONAL) VerifyNow aspirin 609 ARU [facility] Comment: Interpretive Data Reference interval from adults not taking Aspirin is 577-711 ARU. Results could be affected by anemia (Hct <29%) and thrombocytopenia (platelet count <90,000/mcL), conditions which can reduce in-vitro platelet aggregation and produce lower ARU results independent of aspirin inhibition. Platelet responsiveness to aspirin should not be performed within 48 hours of treatment with GPIIbIIIa inhibitors etifibatide (Integrilin) or tirofiban (Aggrastat) or within 2 weeks of treatment with abciximab (Reopro). Possible causes for an ARU greater than or equal to 550 in patients prescribed aspirin include: recent discontinuation of aspirin; co-ingestion of aspirin and other nonsteroidal medications which compete for cyclo-oxygenase binding; intrinsic resistance to aspirin, as well as unknown factors. Current interpretive data was last revised on 2017. Blood specimen (specimen) 06/28/2019 5:02 PM HOME SALES SERVICE PROFESSIONAL 06/28/2019 7:03 PM HOME SALES SERVICE PROFESSIONAL Narrative [facility] - 06/28/2019 7:43 PM HOME SALES SERVICE PROFESSIONAL THE BJ COLLECTION LOCATION IS [address] Yoli Monzon MD LAB BLOOD ORDERABLES Final R [place] [address] * aPTT (06/28/2019 5:02 PM HOME SALES SERVICE PROFESSIONAL) aPTT 25 25 - 37 sec [facility] Comment: Code Blue Specimen Interpretive data Heparin therapeutic range: 60-90 seconds Range based on correlation with therapeutic heparin activity range of 0.3-0.7 units/ml. Current interpretive data was last revised on 2019. Blood specimen (specimen) 06/28/2019 5:02 PM HOME SALES SERVICE PROFESSIONAL 06/28/2019 5:38 PM HOME SALES SERVICE PROFESSIONAL [facility]ative [facility] 5:53 PM HOME SALES SERVICE PROFESSIONAL THE COLLECTION LOCATION IS [address] Yoli Monzon MD LAB BLOOD ORDERABLES Edited Result - Final Performing Organization Address [facility] [place] [address] * Protime-INR (06/28/2019 5:02 PM HOME SALES SERVICE PROFESSIONAL) PT 12.1 8.6 - 13.0 sec [facility] Comment:Code Blue Specimen INR 1.1 0.8 - 1.2 [facility] Comment: Code Blue Specimen Interpretive data Oral anticoagulant therapeutic ranges: Venous thromboembolism prophylaxis or treatment: 2.0-3.0 CARDIOLOGY Standard range: 2.0-3.0 High-intensity range: 2.5-3.5 Refer to indication-specific guidelines for appropriate target ranges for prosthetic heart valve replacement. Current interpretive data was last revised on 2019. Blood specimen (specimen) 06/28/2019 5:02 PM HOME SALES SERVICE PROFESSIONAL 06/28/2019 5:38 PM HOME SALES SERVICE PROFESSIONAL Narrative [facility] - 06/28/2019 5:53 PM HOME SALES SERVICE PROFESSIONAL THE COLLECTION LOCATION IS [facility] [id number] Yoli Monzon MD LAB BLOOD ORDERABLES Edited Result - Final Performing Organization Address [facility] de Phone Number [place] [address] * Type and screen (06/28/2019 5:02 PM HOME SALES SERVICE PROFESSIONAL) Triston, indirect Negative [facility] Blood specimen (specimen) 06/28/2019 5:02 PM HOME SALES SERVICE PROFESSIONAL 06/28/2019 5:41 PM HOME SALES SERVICE PROFESSIONAL Narrative [facility] - 06/28/2019 6:23 PM HOME SALES SERVICE PROFESSIONAL Has the patient had Daratumumab (Darzalex) in the past 6 months?->Unknown THE BJ COLLECTION LOCATION IS [address] us Yoli Monzon MD LAB BLOOD BANK TEST ORDERABL ES Final Result [facility] [place] [address] * (ABNORMAL) Comprehensive metabolic panel (06/28/2019 5:02 PM HOME SALES SERVICE PROFESSIONAL) Sodium 141 135 - 145 mmol/L [facility] Comment:Code Blue Specimen Potassium, pl 6.9(C) 3.3 - 4.9 mmol/L [facility] Comment:Code Blue Specimen Chloride 103 97 - 110 mmol/L [facility] Comment:Code Blue Specimen CO2 29 22 - 32 mmol/L [facility] Comment:Code Blue Specimen Anion gap 9 2 - 15 mmol/L [facility] Comment:Code Blue Specimen BUN 38(H) 8 - 25 mg/dL [facility] Comment:Code Blue Specimen Creatinine 1.50(H) 0.60 - 1.10 mg/dL [facility] Comment:Code Blue Specimen Glucose 211(H) 70 - 199 mg/dL [facility] Comment: Code Blue Specimen Interpretive Data Fasting glucose >/= 126 mg/dl [...] Calcium 8.8 8.5 - 10.3 mg/dL [facility] Comment:Code Blue Specimen Bilirubin, total 0.2 0.1 - 1.2 mg/dL [facility] Comment:Code Blue Specimen Protein, pl 6.2(L) 6.5 - 8.5 g/dL [facility] Comment:Code Blue Specimen Albumin 3.6 3.5 - 5.0 g/dL [facility] Comment:Code Blue Specimen Alk phos 77 40 - 130 Units/L [facility] Comment:Code Blue Specimen ALT 41 7 - 45 Units/L [facility] Comment:Code Blue Specimen AST 43 10 - 45 Units/L [facility] Comment:Code Blue Specimen Blood specimen (specimen) 06/28/2019 5:02 PM HOME SALES SERVICE PROFESSIONAL 06/28/2019 5:38 PM HOME SALES SERVICE PROFESSIONAL Narrative [facility] - 06/28/2019 6:06 PM HOME SALES SERVICE PROFESSIONAL THE COLLECTION LOCATION IS [address] us Yoli Monzon MD LAB BLOOD ORDERABLES Edited Result - Final [facility] [place] [address] * (ABNORMAL) CBC with auto differential (06/28/2019 5:02 PM HOME SALES SERVICE PROFESSIONAL) WBC 6.7 3.8 - 9.9 K/cumm [facility] Comment:Code Blue Specimen Hgb 9.0(L) 11.9 - 15.5 g/dL [facility] Hct 24.2(L) 35.6 - 45.5 % [facility] Plt 195 150 - 400 K/cumm [facility] MPV 11.1 9.1 - 12.3 fL [facility] RBC 2.57(L) 3.90 - 5.20 M/cumm [facility] MCV 94.2 81.3 - 96.4 fL [facility] MCH 35.0(H) 27.1 - 33.3 pg [facility] MCHC 37.2(H) 32.3 - 35.7 g/dL [facility] RDW CV 26.7(H) 11.1 - 14.9 % [facility] RDW SD 69.5(H) 35.7 - 48.1 fL [facility] NRBC abs 0.04(H) 0.00 - 0.01 K/cumm [facility] Blood specimen (specimen) 06/28/2019 5:02 PM HOME SALES SERVICE PROFESSIONAL 06/28/2019 5:38 PM HOME SALES SERVICE PROFESSIONAL Narrative [facility] - 06/28/2019 5:44 PM HOME SALES SERVICE PROFESSIONAL THE BJ COLLECTION LOCATION IS [address] us Yoli Monzon MD LAB BLOOD ORDERABLES Final R esult [facility] [place] [address] documented in this encounter Visit Diagnoses Diagnosis Open displaced comminuted fracture of shaft of left tibia, type IIIA, IIIB, or IIIC- Primary Type III open displaced comminuted fracture of shaft of left tibia, initial encounter Hypotension due to drugs Other iatrogenic hypotension Acute postoperative pain Other acute postoperative pain Bilateral lower extremity pain Bipolar I disorder with anxious distress (HCC) Intractable seizure disorder (CMS/HCC) (HCC) Moderate essential hypertension Syncope due to sick sinus syndrome (CMS/HCC) (HCC) documented in this encounter Admitting Diagnoses Diagnosis Open displaced comminuted fracture of shaft of left tibia, type IIIA, IIIB, or IIIC documented in this encounter Administered Medications Inactive Administered Medications - up to 3 most recent administrations Medication Order MAR Action Action Date Dose Rate Site acetaminophen (TYLENOL) 32 mg/mL oral solution 1,000 mg 1,000 mg, feeding tube, Every 6 hours scheduled, First dose on Mercedes 06/29/19 at 1630 Given 07/01/2019 5:15 AM HOME SALES SERVICE PROFESSIONAL 1,000 mg Given 07/01/2019 12:48 AM HOME SALES SERVICE PROFESSIONAL 1,000 mg Given 06/30/2019 6:24 PM HOME SALES SERVICE PROFESSIONAL 1,000 mg acetaminophen (TYLENOL) tablet 1,000 mg 1,000 mg, oral, Every 6 hours scheduled, First dose on 07/01/19 at 1200 Given 07/06/2019 12:11 PM HOME SALES SERVICE PROFESSIONAL 1,000 mg Given 07/06/2019 6:45 AM HOME SALES SERVICE PROFESSIONAL 1,000 mg Given 07/05/2019 11:10 PM HOME SALES SERVICE PROFESSIONAL 1,000 mg albuterol 2.5 mg/0.5 mL nebulizer solution 10 mg 10 mg, nebulization, Once (incident response engineer), On Wed06/28/19 at 1833, For 1 dose, Indications: hyperkalemiaIndications:hyperkalemia Given 06/28/2019 6:50 PM HOME SALES SERVICE PROFESSIONAL 10 mg albuterol HFA (PROVENTIL HFA,VENTOLIN HFA,PROAIR HFA) 90 mcg/actuation inhaler 2 puff 2 puff, inhalation, Every 6 hours PRN (incident response engineer), wheezing, Starting on Wed06/29/19 at 0003 amLODIPine (NORVASC) tablet 10 mg 10 mg, feeding tube, Daily, First dose on Wed06/29/19 at 1000 Given 06/29/2019 9:47 AM HOME SALES SERVICE PROFESSIONAL 10 mg atorvastatin (LIPITOR) tablet 10 mg 10 mg, feeding tube, Nightly, First dose on Wed06/29/19 at 2100 Given 06/30/2019 9:38 PM HOME SALES SERVICE PROFESSIONAL 10 mg Given 06/29/2019 8:33 PM HOME SALES SERVICE PROFESSIONAL 10 mg atorvastatin (LIPITOR) tablet 10 mg 10 mg, oral, Nightly, First dose (after last modification) on Wed07/01/19 at 2100 Given 07/05/2019 9:46 PM HOME SALES SERVICE PROFESSIONAL 10 mg Given 07/04/2019 9:10 PM HOME SALES SERVICE PROFESSIONAL 10 mg Given 07/03/2019 9:52 PM HOME SALES SERVICE PROFESSIONAL 10 mg baclofen (LIORESAL) tablet 2.5 mg 2.5 mg, oral, 3 times daily with meals, First dose (after last modification) on Wed07/04/19 at 0800 Given 07/06/2019 12:11 PM HOME SALES SERVICE PROFESSIONAL 2.5 mg Given 07/06/2019 8:23 AM HOME SALES SERVICE PROFESSIONAL 2.5 mg Given 07/05/2019 6:42 PM HOME SALES SERVICE PROFESSIONAL 2.5 mg baclofen (LIORESAL) tablet 5 mg 5 mg, oral, 2 times daily with meals (bkfst, dinner), First dose on Wed07/01/19 at 1800 Given 07/03/2019 5:25 PM HOME SALES SERVICE PROFESSIONAL 5 mg Given 07/03/2019 9:00 AM HOME SALES SERVICE PROFESSIONAL 5 mg Given 07/02/2019 5:23 PM HOME SALES SERVICE PROFESSIONAL 5 mg calcium carbonate (OS-MAGNUS) tablet 2,500 mg 2,500 mg (1,000 mg of elemental calcium), feeding tube, 2 times daily, First dose on 07/01/19 at 0100, For 4 doses Given 07/01/2019 12:48 AM HOME SALES SERVICE PROFESSIONAL 2,500 mg calcium carbonate (OS-MAGNUS) tablet 2,500 mg 2,500 mg (1,000 mg of elemental calcium), oral, 2 times daily, First dose (after last modification) on 07/01/19 at 0900, For 3 doses Given 07/01/2019 8:14 AM HOME SALES SERVICE PROFESSIONAL 2,500 mg calcium carbonate (TUMS) chewable tablet 1,000 mg 1,000 mg (400 mg of elemental calcium), oral, Daily, First dose on 07/03/19 at 0900 Given 07/06/2019 8:24 AM HOME SALES SERVICE PROFESSIONAL 1,000 mg Given 07/05/2019 9:37 AM HOME SALES SERVICE PROFESSIONAL 1,000 mg Given 07/04/2019 8:30 AM HOME SALES SERVICE PROFESSIONAL 1,000 mg calcium chloride 2 g in sodium chloride 0.9% 100 mL IVPB 2 g, intravenous, at 120 mL/hr, Administer over 60 Minutes, Once, On Wed06/28/19 at 1833, For 1 dose, Central line preferred, Indications: hypocalcemiaIndications:hypocalce bladimir New Bag 06/28/2019 7:12 PM HOME SALES SERVICE PROFESSIONAL 2 g 120 mL/hr ceFAZolin (ANCEF) 2,000 mg/20 mL in sterile water (premix) 2,000 mg 2,000 mg, intravenous, at 400 mL/hr, Administer over 3 Minutes, Every 8 hours scheduled, First dose on Wed06/28/19 at 1705, For 10 doses, Indications: Bone/Joint InfectionIndications:Bone/Joint Infection New Bag 07/01/2019 2:13 PM HOME SALES SERVICE PROFESSIONAL 2,000 mg 400 mL/hr New Bag 07/01/2019 5:48 AM HOME SALES SERVICE PROFESSIONAL 2,000 mg 400 mL/hr New Bag 06/30/2019 9:37 PM HOME SALES SERVICE PROFESSIONAL 2,000 mg 400 mL/hr chlorhexidine (PERIDEX) 0.12 % solution 15 mL 15 mL, mouth/throat, 2 times daily, First dose (after last modification) on Mercedes 06/29/19 at 0900, Swab all oral surfaces and suction excess. Discontinue Chlorhexidine Gluconate after patient liberated from mechanical ventilation., Indications: Prevention of Ventilator-Associated PneumoniaIndications:Prevention of Ventilator-Associated Pneumonia Given 06/30/2019 9:37 PM HOME SALES SERVICE PROFESSIONAL 15 mL Given 06/30/2019 9:05 AM HOME SALES SERVICE PROFESSIONAL 15 mL Given 06/29/2019 8:32 PM HOME SALES SERVICE PROFESSIONAL 15 mL cyclobenzaprine (FLEXERIL) tablet 10 mg 10 mg, oral, 3 times daily, First dose (after last modification) on 07/01/19 at 1600 Given 07/06/2019 3:26 PM [employer]ES [employer] 10 mg Given 07/06/2019 8:23 AM HOME SALES SERVICE PROFESSIONAL 10 mg Given 07/05/2019 9:46 PM HOME SALES SERVICE PROFESSIONAL 10 mg cyclobenzaprine (FLEXERIL) tablet 5 mg 5 mg, feeding tube, 3 times daily PRN, muscle spasms, Starting on Wed06/30/19 at 1022 Given 07/01/2019 10:36 AM HOME [employer]ES SERVICE PROFESSIONAL 5 m g Given 06/30/2019 11:06 AM HOME SALES SERVICE PROFESSIONAL 5 mg dextrose (D10W) 10% bolus 500 mL 500 mL, intravenous, at 250 mL/hr, Administer over 2 Hours, Once, On Wed06/28/19 at 1833, For 1 dose, Initiate PRIOR to insulin., Indications: Prevent HypoglycemiaIndications:Prev ent Hypoglycemia New Bag 06/28/2019 7:31 PM [employer]ES [employer] PROF[employer]AL 500 mL 250 mL/hr dextrose 5% and Lactated Ringer's infusion 25 mL/hr, intravenous, Continuous, Starting on Mercedes 06/29/19 at 0030 Rate/Dose Verify 07/01/2019 10:00 AM HOME [employer]ES SERVICE PROFESSIONAL 25 mL/hr 25 mL/hr Rate/Dose Verify 07/01/2019 9:00 AM HOME SALES SERVICE PROFESSIONAL 25 mL/hr 25 mL/h r Rate/Dose Verify 07/01/2019 8:00 AM HOME SALES SERVICE PROFESSIONAL 25 mL/hr 25 mL/h r diphenhydrAMINE (BENADRYL) injection 50 mg 50 mg, intravenous, Administer over 2 Minutes, Once, On 06/28/19 at 1741, For 1 dose Given by Other 06/28/2019 5:51 PM [employer]ES [employer] PROF[employer]AL 50 mg diphenhydrAMINE (BENADRYL) tab/cap 25 mg 25 mg, oral, Once, On 07/01/19 at 2200, For 1 dose Given 07/01/2019 10:44 PM HOME SALES SERV[employer] PROFESSIONAL 25 mg docusate (COLACE) 10 mg/mL oral liquid 100 mg 100 mg, feeding tube, 2 times daily, First dose on Wed06/30/19 at 0900, Indications: constipationIndications:constipatio n Given 06/30/2019 9:37 PM [employer] 100 mg Given 06/30/2019 8:56 AM HOME SALES SERVICE PROFESSIONAL 100 mg docusate (COLACE) 10 mg/mL oral liquid 100 mg 100 mg, oral, 2 times daily, First dose (after last modification) on 07/01/19 at 0900, Indications: constipationIndications:constipation Given 07/01/2019 8:13 AM [employer] PROF[employer]AL 100 mg docusate sodium (DOK) tablet 100 mg 100 mg, oral, 2 times daily, First dose on 07/01/19 at 2100, Indications: constipationIndications:constipation Given 07/05/2019 9:46 PM HOME SALES SERVICE PROFESSIONAL 100 mg Given 07/05/2019 9:37 AM HOME SAL[employer] SERVICE PROFESSIONAL 100 mg Given 07/04/2019 9:09 PM HOME [employer]ES SERVICE PROF[employer]AL 100 mg enoxaparin (LOVENOX) syringe 40 mg 40 mg, subcutaneous, Every 12 hours scheduled, First dose (after last modification) on Mercedes 06/29/19 at 2100, Indications: Deep Vein Thrombosis PreventionIndications:Deep Vein Thrombosis Prevention Given 06/29/2019 9:34 AM [employer] PROF[employer]AL 40 mg Left Lower Abdomen enoxaparin (LOVENOX) syringe 40 mg 40 mg, subcutaneous, Every 12 hours scheduled, First dose on 07/01/19 at 0900, Indications: Deep Vein Thrombosis PreventionIndications:Deep Vein Thrombosis Prevention Given 07/06/2019 8:24 AM [employer] PROF[employer]AL 40 mg Left Lower Abdomen Given 07/05/2019 9:46 PM HOME SALES SERVICE PROFESSIONAL 40 mg Le ft Lower Abdomen Given 07/05/2019 9:37 AM HOME SALES SERVICE PROFESSIONAL 40 mg Le ft Lower Abdomen esomeprazole DR (NexIUM) extended release oral suspension 40 mg 40 mg, feeding tube, Daily, First dose (after last modification) on Wed06/30/19 at 0900, Indications: Treatment of Non-Bleeding Gastric DisorderIndications:Treatment of Non-Bleeding Gastric Disorder Given 06/30/2019 9:05 AM [employer]AL 40 mg Given 06/29/2019 9:33 AM HOME [employer] PROF[employer]AL [address] (NexIUM) extended release oral suspension 40 mg 40 mg, oral, Daily, First dose (after last modification) on 07/01/19 at 0900, Indications: Treatment of Non-Bleeding Gastric DisorderIndications:Treatment of Non-Bleeding Gastric Disorder Given 07/01/2019 8:14 AM [employer]AL 40 mg etomidate (AMIDATE) 2 mg/mL injection - ADS Override Pull Starting on Wed06/28/19 at 1705, For 1 dose, Created by cabinedontae override etomidate (AMIDATE) injection 20 mg 20 mg, intravenous, Administer over 1 Minutes, Once, On Wed06/28/19 at 1838, For 1 dose Given by Other 06/28/2019 5:31 PM HOME [employer] PROFESSIONAL 20 mg fentaNYL (SUBLIMAZE) 50 mcg/mL preservative free injection - ADS Override Pull Starting on Wed06/28/19 at 1654, For 1 dose, LUIS THORNTON: cabinet override fentaNYL (SUBLIMAZE) bolus from bag 50 mcg 50 mcg, intravenous, Every 30 min PRN, other, Breakthrough pain and/or agitation, Starting on Wed06/28/19 at 2349 Bolus from Bag 06/30/2019 5:44 PM [employer] PROF[employer]AL 50 mcg Bolus from Bag 06/30/2019 8:25 AM HOME SALES SERVICE PROFESSIONAL 50 mcg Bolus from Bag 06/30/2019 8:10 AM HOME SALES SERVICE PROFESSIONAL 50 mcg fentaNYL (SUBLIMAZE) preservative free injection 100 mcg 100 mcg, intravenous, Once, On Wed06/28/19 at 1838, For 1 dose Given 06/28/2019 5:44 PM HOME SALES SERVICE PROFESSIONAL 100 mcg fentaNYL (SUBLIMAZE) preservative free injection 25 mcg 25 mcg, intravenous, Once, On Wed06/28/19 at 1838, For 1 dose Given by Other 06/28/2019 5:18 PM HOME SALES SERVICE PROFESSIONAL 25 mcg fentaNYL (SUBLIMAZE) preservative free injection 50 mcg 50 mcg, intravenous, Once, On Wed06/28/19 at 1744, For 1 dose Given 06/28/2019 5:25 PM HOME SALES SERVICE PROFESSIONAL 50 mcg Given by Other 06/28/2019 4:57 PM HOME SALES SERVICE PROFESSIONAL 50 mcg fentaNYL (SUBLIMAZE) preservative free injection 50 mcg 50 mcg, intravenous, Once, On Wed06/28/19 at 1746, For 1 dose Given by Other 06/28/2019 4:57 PM HOME SALES SERVICE PROFESSIONAL 50 mcg fentaNYL (SUBLIMAZE) preservative free injection 50 mcg 50 mcg, intravenous, Once, On Wed06/28/19 at 1838, For 1 dose Given 06/28/2019 5:50 PM HOME SALES SERVICE PROFESSIONAL 50 mcg fentaNYL 2500 mcg/50 mL (50 mcg/mL) infusion (premix) 12.5-400 mcg/hr (0.25-8 mL/hr), intravenous, Titrated, Starting on Wed06/28/19 at 1747, Initial dose: 50 mcg/hr, Titrate: Up/Down, Titrate by: 25 mcg/hr, Every: 30 minutes, Goal: RASS, RASS Goal: -2 New Bag 06/28/2019 6:33 PM [employer] PROF[employer]AL 50 mcg/hr 1 mL/hr fentaNYL 2500 mcg/50 mL (50 mcg/mL) infusion (premix) 12.5-400 mcg/hr (0.25-8 mL/hr), intravenous, Titrated, Starting on Mercedes 06/29/19 at 0030, Initial dose: 50 mcg/hr, Titrate: Up/Down, Titrate by: 25 mcg/hr, Every: 30 minutes, Goal: Pain, Pain Goal: 1, 2, 3, 4 Rate/Dose Verify 07/01/2019 5:00 AM [employer]AL 50 mcg/hr 1 mL/hr Rate/Dose Verify 07/01/2019 4:00 AM HOME SALES SERVICE PROFESSIONAL 50 mcg/hr 1 mL/hr Rate/Dose Change 07/01/2019 3:38 AM HOME SALES SERVICE PROFESSIONAL 50 mcg/hr 1 mL/hr furosemide (LASIX) 10 mg/mL injection 40 mg 40 mg, intravenous, Administer over 1 Minutes, Once, On Wed06/28/19 at 1920, For 1 dose, Room temperature only Given 06/28/2019 7:27 PM [employer] 40 mg furosemide (LASIX) tablet 20 mg 20 mg, oral, 2 times daily (for diuretics), First dose on Wed07/02/19 at 1600 Given 07/03/2019 9:00 AM HOME [employer] PROFESSIONAL 20 mg Given 07/02/2019 6:19 PM HOME [employer] PROFESSIONAL 20 mg furosemide (LASIX) tablet 40 mg 40 mg, oral, 2 times daily (for diuretics), First dose (after last modification) on Wed07/03/19 at 1600 Given 07/06/2019 3:27 PM HOME [employer]ES [employer] PROFESSIONAL 40 mg Given 07/06/2019 8:24 AM HOME SALES SERVICE PROFESSIONAL 40 mg Given 07/05/2019 4:00 PM HOME [employer] PROFESSIONAL 40 mg gabapentin (NEURONTIN) 50 mg/mL oral solution 300 mg 300 mg, feeding tube, Every 8 hours, First dose on Wed06/30/19 at 1100, Refrigerate Given 07/01/2019 2:21 AM HOME [employer]ESSIONAL 3 00 mg Given 06/30/2019 6:24 PM HOME SALES [employer]ICE PROFESSIONAL 300 mg Given 06/30/2019 12:30 PM HOME SALES SERVICE PROFESSIONAL 300 mg gabapentin (NEURONTIN) 50 mg/mL oral solution 300 mg 300 mg, oral, Every 8 hours, First dose (after last modification) on 07/01/19 at 1100, Refrigerate Given 07/01/2019 10:41 AM HOME SAL[employer] PROFESSIONAL 300 mg gabapentin (NEURONTIN) capsule 400 mg 400 mg, oral, Every 8 hours, First dose (after last modification) on 07/01/19 at 1800 Given 07/06/2019 10:28 AM HOME SAL[employer]ICE PROFESSIONAL 400 mg Given 07/06/2019 2:13 AM HOME SALES SERVICE PROFESSIONAL 400 mg Given 07/05/2019 6:43 PM HOME SALES SERVICE PROFESSIONAL 400 mg gentamicin (GARAMYCIN) 370 mg in sodium chloride 0.9% 37 mL (10 mg/mL) syringe 370 mg (rounded from 365.5 mg = 5 mg/kg ? 73.1 kg Adjusted weight), intravenous, Administer over 30 Minutes, Every 24 hours, First dose on Wed06/28/19 at 1703, Indications: Bone/Joint InfectionIndications:Bone/Joint Infection New Bag 06/29/2019 5:48 PM [employer] PROFESSIONAL 370 mg New Bag 06/28/2019 5:21 PM HOME SALES SERVICE PROFESSIONAL 370 mg HYDROmorphone (DILAUDID) injection 0.25 mg 0.25 mg, intravenous, Administer over 2 Minutes, Every 4 hours PRN, breakthrough pain, Starting on 07/01/19 at 0548 Given 07/01/2019 4:33 PM HOME SALES [employer] PROFESSIONAL 0.25 m g Given 07/01/2019 9:37 AM HOME SALES SERVICE PROFESSIONAL 0.25 mg Given 07/01/2019 5:58 AM HOME SALES SERVICE PROFESSIONAL 0.25 mg insulin regular (HumuLIN R, NovoLIN R) injection 10 Units 10 Units, intravenous, Once, On Wed06/28/19 at 1833, For 1 dose, Administer AFTER dextrose infusion started. Dose = 0.1 units/kg; Maximum 10 units/dose., Indications: hyperkalemiaIndications:hype rkalemia Given 06/28/2019 7:46 PM HOME SALES [employer] PROFESSIONAL 10 Units insulin regular bolus from bag 4-10 Units 4-10 Units, intravenous, As needed, high blood sugar, Starting on Wed06/28/19 at 2140, Intra-Op, INITIATE INFUSION: Blood Glucose (mg/dL) 181 - 220: Give 4 units IV bolus and start infusion 1 unit/hour 221 - 280: Give 4 units IV bolus and start infusion 2 units/hour 281 - 330: Give 6 units IV bolus and start infusion 2 units/hour 331 - 380: Give 8 units IV bolus and start infusion 3 units/hour 381 - 430: Give 10 units IV bolus and start infusion 3 units/hour Greater than 430: Call MD for orders Use the instructions above if the insulin infusion needs to be restarted., Indications: Diabetes MellitusIndications:Diabetes Mellitus Bolus from Bag 06/29/2019 1:19 AM HOME SALES SERVICE PROFESSIONAL 4 Units insulin regular in 0.9% sodium chloride 100 units/100 mL infusion (premix) 0-30 Units/hr (0-30 mL/hr), 1 units/mL, intravenous, Titrated, Starting on Wed06/28/19 at 2215, Until Mercedes 06/29/19 at 1712, Intra-Op, Indications: Diabetes Mellitus, Blood Glucose (BG) - BG DECREASED OR SAME as last value: Less than 70 mg/dL - Stop insulin infusion. Follow hypoglycemia orders. Notify covering MD. 70 - 100 mg/dL - Stop infusion. Resume BG Q 1 hour. 101 - 160 mg/dL - If BG decreased by greater than or equal to 40 mg/dL, decrease infusion by 50% or stop infusion if less than or equal to 2 units/hour. Resume BG Q 1 hour. If BG decreased less than 40 mg/dL, continue same rate. 161 - 200 mg/dL- If BG decreased by greater than or equal to 60 mg/dL, decrease infusion by 50% or stop infusion if less than or equal to 2 units/hour. Resume BG Q 1 hour. If BG decreased less than 60 mg/dL, continue same rate. 201 - 250 mg/dl - If BG decreased by greater than or equal to 60 mg/dL continue same rate. If decreased by less than 60 mg/dL, increase by 1 unit/hr. 251 - 300 mg/dL - Increase by 2 units/hour. 301 - 349 mg/dL - Increase by 2 units/hour. 350 - 400 mg/dL - Increase by 3 units/hr. Greater than 400 mg/dL - Notify covering MD Blood Glucose (BG) - Blood glucose INCREASED since last value: 70 - 100 mg/dL - Continue to hold infusion 101 - 160 mg/dL - Maintain at present rate. 161 - 200 mg/dL- Increase by or restart at 1 unit/hour. 201 - 250 mg/dL- Give 4 units insulin IV bolus then increase infusion by or restart at 2 units/hour. 251 - 300 mg/dL - Give 4 units insulin IV bolus then increase infusion by or restart at 2 units/hour. 301 - 349 mg/dL - Give 6 units insulin IV bolus then increase infusion by or restart at 3 units/hour. 350 - 400 mg/dL - Give 6 units insulin IV bolus then increase infusion by or restart at 3 units/hour. Greater than 400 mg/dL - Notify covering MD. Patients with renal failure (CrCl less than 40 mL/min, urine output less than 30 mL/hr, or receiving dialysis) limit infusion rate increases to be NO SOONER THAN EVERY 3 HOURS. Patients with type 1 diabetes or equivalent: Do not discontinue drip until insulin maintenance regimen is implemented. Notify the provider when stopping the infusion. When new IV tubing is used, completely prime the tubing. Once primed, waste an additional 20 ml of insulin infusion using the IV pump prior to connecting to patient., RoutineIndications:Diabetes Mellitus Rate/Dose Verify 06/29/2019 4:00 PM HOME SALES SERVICE PROFESSIONAL 4 Units/hr 4 mL/hr Rate/Dose Verify 06/29/2019 3:00 PM HOME SALES SERVICE PROFESSIONAL 4 Units/hr 4 mL/hr Rate/Dose Verify 06/29/2019 2:00 PM HOME SALES SERVICE PROFESSIONAL 4 Units/hr 4 mL/hr ioversol (OPTIRAY 350) syringe syringe 125 mL 125 mL, intravenous, Once in imaging, contrast, Starting on Wed06/28/19 at 1822, For 1 dose Given 06/28/2019 6:28 PM HOME SAL[employer] SERVICE PROFESSIONAL 125 mL Lactated Ringer's (LR) bolus 1,000 mL 1,000 mL, intravenous, Once, On Wed06/29/19 at 0615, For 1 dose New Bag 06/29/2019 5:54 AM HOME SALES SERVICE PROFESSIONAL 1,000 mL Lactated Ringer's (LR) bolus 500 mL 500 mL, intravenous, Once, On Wed06/29/19 at 0300, For 1 dose New Bag 06/29/2019 3:13 AM HOME SALES SERVICE PROFESSIONAL 500 mL Lactated Ringer's (LR) bolus 500 mL 500 mL, intravenous, Once, On Wed06/29/19 at 0415, For 1 dose New Bag 06/29/2019 3:36 AM HOME SALES SERVICE PROFESSIONAL 500 mL Lactated Ringer's (LR) bolus 500 mL 500 mL, intravenous, at 500 mL/hr, Administer over 1 Hours, Once, On Wed06/30/19 at 1100, For 1 dose New Bag 06/30/2019 11:20 AM HOME SALES SERVICE PROFESSIONAL 500 mL 500 mL/hr Lactated Ringer's (LR) infusion - ADS Override Pull Starting on Wed06/29/19 at 0332, For 1 dose, Created by cabinet override lidocaine (XYLOCAINE) 10 mg/mL (1 %) injection 50 mg 50 mg (5 mL), subcutaneous, Once, On Wed06/29/19 at 0545, For 1 dose, Indications: Administration of Local AnesthesiaIndications:Adminis tration of Local Anesthesia Given 06/29/2019 5:29 AM HOME SALES SERV[employer] PROFESSIONAL 50 mg Left Radial lidocaine PF (XYLOCAINE) 10 mg/mL (1 %) preservative free injection - ADS Override Pull Starting on Wed06/29/19 at 0515, For 1 dose, YOLI TAYLOR: cabinet override magnesium citrate oral solution 296 mL 296 mL, oral, Once, On Wed07/05/19 at 1015, For 1 dose Given 07/05/2019 11:34 AM HOME SALES SERVICE PROFESSIONAL 296 mL magnesium oxide (MAG-OX) tablet 800 mg 800 mg, feeding tube, 2 times daily, First dose on Wed06/30/19 at 0015, For 3 doses, 1 tablet = Magnesium oxide 400 mg = 241.3 mg elemental magnesium, Indications: hypomagnesemiaIndications:hyp omagnesemia Given 06/30/2019 9:38 PM HOME SALES SERVICE PROFESSIONAL 800 mg Given 06/30/2019 9:05 AM HOME SALES SERVICE PROFESSIONAL 800 mg Given 06/30/2019 12:25 AM HOME SALES SERVICE PROFESSIONAL 800 mg magnesium sulfate 2 g/50 mL in water (premix) 2 g 2 g, intravenous, Administer over 60 Minutes, Once, On Wed06/30/19 at 0300, For 1 dose New Bag 06/30/2019 3:13 AM HOME SALES SERVICE PROFESSIONAL 2 g magnesium sulfate 4 g/100 mL in water (premix) 4 g 4 g, intravenous, Administer over 90 Minutes, Once, On Wed06/29/19 at 0145, For 1 dose New Bag 06/29/2019 2:26 AM HOME SALES SERVICE PROFESSIONAL 4 g metoprolol (LOPRESSOR) injection 5 mg 5 mg, intravenous, Administer over 1 Minutes, Every 4 hours, First dose on Wed06/30/19 at 1100, Please hold for HR<60 and/or SBP<100 Given 07/01/2019 5:57 AM HOME SALES SERVICE PROFESSIONAL 5 mg Given 07/01/2019 2:21 AM HOME SALES SERVICE PROFESSIONAL 5 mg Given 06/30/2019 9:38 PM HOME SALES SERVICE PROFESSIONAL 5 mg metoprolol (LOPRESSOR) tablet 25 mg 25 mg, feeding tube, 2 times daily, First dose on Mercedes 06/29/19 at 1000, Please hold for HR<60 and/or SBp<100 Given 06/29/2019 9:47 AM HOME SALES SERVICE PROFESSIONAL 25 mg metoprolol (LOPRESSOR) tablet 25 mg 25 mg, oral, Every 6 hours scheduled, First dose (after last modification) on 07/01/19 at 1045 Given 07/06/2019 12:11 PM HOME SALES SERVICE PROFESSIONAL 25 mg Given 07/06/2019 6:46 AM HOME SALES SERVICE PROFESSIONAL 25 mg Given 07/05/2019 11:10 PM HOME SALES SERVICE PROFESSIONAL 25 mg metoprolol (LOPRESSOR) tablet 50 mg 50 mg, feeding tube, 2 times daily, First dose (after last modification) on Mercedes 06/29/19 at 2100, Please hold for HR<60 and/or SBp<100 Given 06/29/2019 8:42 PM HOME SALES SERVICE PROFESSIONAL 50 mg naloxone (NARCAN) 0.4 mg/mL injection - ADS Override Pull Starting on Wed06/28/19 at 1706, For 1 dose, Created by cabinet override For IV, administer over 30 seconds. naloxone (NARCAN) 0.4 mg/mL injection 0.4 mg 0.4 mg, intravenous, Once, On Wed06/28/19 at 1838, For 1 dose, For IV, administer over 30 seconds. Given by Other 06/28/2019 5:05 PM HOME SALES SERVICE PROFESSIONAL 0.4 mg ondansetron (ZOFRAN) 4 mg/2 mL injection - ADS Override Pull Starting on 07/01/19 at 0608, For 1 dose, Created by cabinet override ondansetron (ZOFRAN) injection 4 mg 4 mg, intravenous, Administer over 2 Minutes, Every 6 hours PRN, nausea, vomiting, Starting on 07/01/19 at 0611, For 3 days Given 07/01/2019 7:05 AM HOME SALES SERVICE PROFESSIONAL 4 mg ondansetron ODT (ZOFRAN-ODT) disintegrating tablet 4 mg 4 mg, oral, Once, On Wed07/03/19 at 0930, For 1 dose Given 07/03/2019 9:08 AM HOME SALES SERVICE PROFESSIONAL 4 mg oxyCODONE (ROXICODONE) 1 mg/mL oral solution 10 mg 10 mg, feeding tube, Every 4 hours, First dose on Wed06/30/19 at 1100, Indications: PainIndications:Pain Given 07/01/2019 4:53 AM HOME SALES SERVICE PROFESSIONAL 10 mg Given 06/30/2019 11:30 PM HOME SALES SERVICE PROFESSIONAL 10 mg Given 06/30/2019 6:24 PM HOME SALES SERVICE PROFESSIONAL 10 mg oxyCODONE (ROXICODONE) 1 mg/mL oral solution 10 mg 10 mg, feeding tube, Every 4 hours PRN, 2nd line for pain, Starting on 07/01/19 at 0600, Indications: PainIndications:Pain Given 07/01/2019 8:12 AM HOME SALES SERVICE PROFESSIONAL 10 m g oxyCODONE (ROXICODONE) tablet 10 mg 10 mg, oral, Every 4 hours PRN, 2nd line for pain, Starting on 07/01/19 at 1051, Indications: PainIndications:Pain Given 07/06/2019 3:26 PM HOME SALES SERVICE PROFESSIONAL 10 mg Given 07/06/2019 10:28 AM HOME SALES SERVICE PROFESSIONAL 10 mg Given 07/06/2019 6:45 AM HOME SALES SERVICE PROFESSIONAL [address] (PROTONIX) extended release tablet 40 mg 40 mg, oral, Daily, First dose on Wed07/02/19 at 0900, Do not crush, chew, cut, dissolve, open or otherwise manipulate tablet/capsule., Indications: Treatment of Non-Bleeding Gastric DisorderIndications:Treatment of Non-Bleeding Gastric Disorder Given 07/06/2019 8:23 AM HOME SALES SERVICE PROFESSIONAL 40 mg Given 07/05/2019 9:37 AM HOME SALES SERVICE PROFESSIONAL 40 mg Given 07/04/2019 8:30 AM HOME SALES SERVICE PROFESSIONAL 40 mg phenylephrine in 0.9% sodium chloride (MANFRED-SYNEPHRINE) 25,000 mcg/250 mL (100 mcg/mL) infusion (premix) solution - ADS Override Pull Starting on Mercedes 06/29/19 at 0116, For 1 dose, Created by cabinet override Protect from light phenylephrine in 0.9% sodium chloride (MANFRED-SYNEPHRINE) 25,000 mcg/250 mL (100 mcg/mL) infusion (premix) solution 0.1-4 mcg/kg/min ? 100 kg (6-240 mL/hr), 100 mcg/mL, intravenous, Titrated, Starting on Mercedes 06/29/19 at 0045, Until Mercedes 06/29/19 at 0737, Initial rate: 0.5 mcg/kg/min, Titrate: Up/Down, Titrate by: 0.1 mcg/kg/min, Every: 2 minutes, Goal: MAP, MAP Goal: Other (comment) / >65, Protect from light, Routine New Bag 06/29/2019 7:00 AM HOME SALES SERVICE PROFESSIONAL 0.3 mcg/kg/min 18 mL/hr Rate/Dose Change 06/29/2019 6:55 AM HOME SALES SERVICE PROFESSIONAL 0.3 mcg/kg/min 18 mL/hr Rate/Dose Change 06/29/2019 5:48 AM HOME SALES SERVICE PROFESSIONAL 0.25 mcg/kg/min 15 mL/hr polyethylene glycol (MIRALAX) packet 17 g 17 g, feeding tube, Daily, First dose on [facility] 06/29/19 at 1000, Indications: constipationIndications:constipation Given 06/30/2019 9:05 AM HOME SAL[employer] SERVICE PROFESSIONAL 17 g Given 06/29/2019 9:47 AM HOME SALES SERVICE PROFESSIONAL 17 g polyethylene glycol (MIRALAX) packet 17 g 17 g, oral, Daily, First dose (after last modification) on [facility] 07/01/19 at 0900, Indications: constipationIndications:constipation Given 07/01/2019 8:14 AM HOME SALES SERVICE PROFESSIONAL 17 g primidone (MYSOLINE) tablet 50 mg 50 mg, feeding tube, 2 times daily, First dose (after last modification) on [facility] 06/29/19 at 0900 Given 06/30/2019 9:38 PM HOME SALES SERVICE PROFESSIONAL 50 mg Given 06/30/2019 9:05 AM HOME SALES SERVICE PROFESSIONAL 50 mg Given 06/29/2019 8:42 PM HOME SALES SERVICE PROFESSIONAL 50 mg primidone (MYSOLINE) tablet 50 mg 50 mg, oral, 2 times daily, First dose (after last modification) on [facility] 07/01/19 at 0900 Given 07/06/2019 8:23 AM HOME SALES SERVICE PROFESSIONAL 50 mg Given 07/05/2019 9:46 PM HOME SALES SERVICE PROFESSIONAL 50 mg Given 07/05/2019 9:39 AM HOME SALES SERVICE PROFESSIONAL 50 mg propofol (DIPRIVAN) IV 5-50 mcg/kg/min ? 107.5 kg (3.225-32.25 mL/hr, rounded to 3.23-32.25 mL/hr), 10 mg/mL, intravenous, Titrated, Starting on 06/28/19 at 1756, Until 06/28/19 at 2350, Indications: Sedation in Intubated Patients, Initial dose: Other (comment) / 20 mcg/kg/min, Titrate: Up/Down, Titrate by: 10 mcg/kg/min, Every: 10 minutes, Goal: RASS, RASS Goal: -1, Discontinue when patient extubated. Room temperature only, RoutineIndications:Sedat ion in Intubated Patients Rate/Dose Verify 06/28/2019 11:45 PM HOME SALES SERVICE PROFESSIONAL 30 mcg/kg/min 19.35 mL/hr Restarted 06/28/2019 10:37 PM HOME SALES SERVICE PROFESSIONAL 30 mcg/kg/min 19.35 mL/ hr Rate/Dose Change 06/28/2019 8:55 PM HOME SALES SERVICE PROFESSIONAL 30 mcg/kg/min 19.3 5 mL/hr propofol (DIPRIVAN) IV 5-50 mcg/kg/min ? 107.5 kg (3.225-32.25 mL/hr, rounded to 3.23-32.25 mL/hr), 10 mg/mL, intravenous, Titrated, Starting on Mercedes 06/29/19 at 0030, Until 07/01/19 at 0549, Indications: Sedation in Intubated Patients, Initial dose: Other (comment) / 20 mcg/kg/min, Titrate: Up/Down, Titrate by: 10 mcg/kg/min, Every: 10 minutes, Goal: RASS, RASS Goal: -1, 0, Discontinue when patient extubated. Room temperature only, RoutineIndications:Sedati on in Intubated Patients Rate/Dose Change 07/01/2019 3:39 AM HOME SALES SERVICE PROFESSIONAL 20 mcg/kg/min 12.9 mL/hr Rate/Dose Verify 07/01/2019 3:38 AM HOME SALES SERVICE PROFESSIONAL 25 mcg/kg/min 16.1 3 mL/hr Rate/Dose Verify 07/01/2019 2:00 AM HOME SALES SERVICE PROFESSIONAL 25 mcg/kg/min 16.1 3 mL/hr senna (SENOKOT) tablet 1 tablet 1 tablet, oral, 2 times daily, First dose on 07/01/19 at 2100 Given 07/05/2019 9:46 PM HOME SALES SERVICE PROFESSIONAL 1 tablet Given 07/05/2019 9:37 AM HOME SALES SERVICE PROFESSIONAL 1 tablet Given 07/04/2019 9:09 PM HOME SALES SERVICE PROFESSIONAL 1 tablet senna 1.76 mg/mL syrup 8.8 mg 8.8 mg, feeding tube, 2 times daily, First dose on Wed06/30/19 at 0900 Given 06/30/2019 9:38 PM HOME SALES SERVICE PROFESSIONAL 8.8 mg Given 06/30/2019 8:56 AM HOME SALES SERVICE PROFESSIONAL 8.8 mg senna 1.76 mg/mL syrup 8.8 mg 8.8 mg, oral, 2 times daily, First dose (after last modification) on Wed07/01/19 at 0900 Given 07/01/2019 8:14 AM HOME SALES SERVICE PROFESSIONAL 8.8 mg sodium chloride 0.9% IVPB 0-250 mL 0-250 mL, intravenous, Once, On Wed06/30/19 at 0130, For 1 dose, Prime blood tubing and administer amount needed to clear line (usually 50-100 mL) after transfusion complete. 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 100 mg documented in this encounter Discontinued Medications Medication Sig Discontinue Reason Start Date End Da te famciclovir (FAMVIR) 250 mg tablet Take 250 mg by mouth 2 (two) times a day Duplicate order 12/08/2011 06/29/2019 cloNIDine (CATAPRES) 0.2 mg tablet Take 0.2 mg by mouth 2 (two) times a day Duplicate order 12/08/2011 06/29/2019 docusate sodium (COLACE) 100 mg capsule Take 100 mg by mouth nightly Duplicate order 11/16/2017 06/29/2019 estradiol (ESTRACE) 1 mg tablet Take 0.5 mg by mouth every morning Take one tablet daily for 21 days and then stop for 7 days Duplicate order 11/16/2017 06/29/2019 primidone (MYSOLINE) 50 mg tablet Take 50 mg by mouth 2 (two) times a day Duplicate order 11/16/2017 06/29/2019 baclofen (LIORESAL) 10 mg tablet Take 10 mg by mouth 3 (three) times a day as needed Duplicate order 06/09/2019 06/29/2019 cyclobenzaprine (FLEXERIL) 10 mg tablet Take 5 mg by mouth 3 (three) times a day as needed Duplicate order 06/20/2019 06/29/2019 dicyclomine (BENTYL) 10 mg capsule Take 10 mg by mouth 3 (three) times a day Duplicate order 06/07/2019 06/29/2019 metoprolol (LOPRESSOR) 100 mg tablet Take 100 mg by mouth 2 (two) times a day Duplicate order 12/23/2017 06/29/2019 furosemide (LASIX) 40 mg tablet Take 40 mg by mouth 2 (two) times a day Duplicate order 06/07/2019 06/29/2019 AMLODIPINE BESYLATE, BULK, MISC Take 10 mg by mouth every morning Duplicate order 12/08/2011 06/29/2019 cetirizine (ZyrTEC) 10 mg tablet Take 10 mg by mouth daily Duplicate order 12/18/2017 06/29/2019 gabapentin (NEURONTIN) 400 mg capsule Take 400 mg by mouth daily Duplicate order 06/13/2019 06/29/2019 meloxicam (MOBIC) 7.5 mg tablet Take 15 mg by mouth daily Duplicate order 06/14/2019 06/29/2019 atorvastatin (LIPITOR) 40 mg tabletIndications:hyp erlipidemia Take 40 mg by mouth daily. Indications: excessive fat in the blood Duplicate order 06/29/[address] (PROTONIX) 40 mg EC tablet Take 40 mg by mouth daily Duplicate order 06/14/2019 06/29/2019 olmesartan (BENICAR) 40 mg tablet Take 40 mg by mouth daily Duplicate order 12/18/2017 06/29/2019 oxyCODONE (ROXICODONE) 10 mg tabletIndications:Jose n Take 1 tablet (10 mg total) by mouth every 4 (four) hours as needed for pain 07/04/2019 07/04/2019 oxyCODONE (ROXICODONE) 10 mg tabletIndications:Jose n Take 1 tablet (10 mg total) by mouth every 4 (four) hours as needed for pain 07/04/2019 07/06/2019 zolpidem (AMBIEN) 10 mg tabletIndications:Sle ep-Onset Insomnia Take 10 mg by mouth nightly as needed for sleep. Indications: Difficulty Falling Asleep Stop Taking at Discharge 07/06/2019 diphenhydrAMINE (BENADRYL) 25 mg capsuleIndications:it john Take 25 mg by mouth every 8 (eight) hours as needed for itching. Indications: itching Stop Taking at Discharge 07/06/2019 baclofen (LIORESAL) 10 mg tabletIndications:Mus denise Spasticity of Spinal Origin Take 10 mg by mouth 3 (three) times a day as needed for muscle spasms. Indications: muscle spasms caused by a spinal disease Stop Taking at Discharge 07/06/2019 dicyclomine (BENTYL) 10 mg capsuleIndications:Ir ritable Bowel Syndrome Take 10 mg by mouth 3 (three) times a day. Indications: irritable colon Stop Taking at Discharge 07/06/2019 metoprolol (LOPRESSOR) 100 mg tabletIndications:hyp ertension Take 100 mg by mouth 2 (two) times a day. Indications: high blood pressure Stop Taking at Discharge 07/06/2019 cyclobenzaprine (FLEXERIL) 5 mg tabletIndications:Mus denise Spasm Take 5 mg by mouth every 6 (six) hours as needed for muscle spasms. Indications: muscle spasm Stop Taking at Discharge 07/06/2019 gabapentin (NEURONTIN) 400 mg capsuleIndications:Ne uropathic Pain Take 400 mg by mouth daily. pt takes 800 mg at 2PM and 10PM Indications: Neuropathic Pain Stop Taking at Discharge 07/06/2019 HYDROcodone-acetamino phen (NORCO) 7.5-325 mg per tabletIndications:Jose n Take 1 tablet by mouth every 8 (eight) hours as needed for pain. Indications: pain Stop Taking at Discharge 07/06/2019 meloxicam (MOBIC) 15 mg tabletIndications:Ost eoarthritis Take 15 mg by mouth daily. Indications: joint damage causing pain and loss of function Stop Taking at Discharge 07/06/2019 zolpidem (AMBIEN) 10 mg tablet Take 10 mg by mouth nightly Stop Taking at Discharge 06/13/2019 07/06/2019 HYDROcodone-acetamino phen (NORCO) 7.5-325 mg per tablet Take 1 tablet by mouth 3 (three) times a day Stop Taking at Discharge 06/14/2019 07/06/2019 ondansetron (ZOFRAN) 4 mg tablet Take 4 mg by mouth 3 (three) times a day as needed Stop Taking at Discharge 03/31/2019 07/06/2019 albuterol HFA (VENTOLIN HFA) 90 mcg/actuation inhaler 2 Doses by inhal. via small vol.nebulizer route 4 (four) times a day as needed Stop Taking at Discharge 06/13/2019 07/06/2019 vitamin E acetate (VITAMIN E ORAL) Take 800 Units by mouth daily Stop Taking at Discharge 12/18/2017 07/06/2019 atorvastatin (LIPITOR) 10 mg tablet Take 20 mg by mouth daily Stop Taking at Discharge 12/18/2017 07/06/2019 documented as of this encounter Historical Medications * This list may reflect changes made after this encounter. lidocaine (LIDODERM) 5 % Place 1 patch on the skin daily 06/14/2019 fluticasone propionate (FLONASE) 50 mcg/actuation nasal spray Administer 2 sprays into each nostril daily 12/18/2017 atorvastatin (LIPITOR) 10 mg tablet Take 20 mg by mouth daily 12/18/2017 9 vitamin E acetate (VITAMIN E ORAL) Take 800 Units by mouth daily 12/18/2017 9 albuterol HFA (VENTOLIN HFA) 90 mcg/actuation inhaler 2 Doses by inhal. via small vol.nebulizer route 4 (four) times a day as needed 06/13/2019 9 triamcinolone (KENALOG) 0.1 % cream Apply 1 application topically 2 (two) times a day as needed 0 06/14/2019 0 primidone (MYSOLINE) 50 mg tablet Take 50 mg by mouth 2 (two) times a day 11/16/[address] (PROTONIX) 40 mg EC tablet Take 40 mg by mouth daily 06/14/2019 9 ondansetron (ZOFRAN) 4 mg tablet Take 4 mg by mouth 3 (three) times a day as needed 0 03/31/2019 9 olmesartan (BENICAR) 40 mg tablet Take 40 mg by mouth daily 12/18/2017 9 metoprolol (LOPRESSOR) 100 mg tablet Take 100 mg by mouth 2 (two) times a day 12/23/2017 9 meloxicam (MOBIC) 7.5 mg tablet Take 15 mg by mouth daily 06/14/2019 9 HYDROcodone-acet aminophen (NORCO) 7.5-325 mg per tablet Take 1 tablet by mouth 3 (three) times a day 06/14/2019 9 gabapentin (NEURONTIN) 400 mg capsule Take 400 mg by mouth daily 06/13/2019 9 furosemide (LASIX) 40 mg tablet Take 40 mg by mouth 2 (two) times a day 06/07/2019 9 famciclovir (FAMVIR) 250 mg tablet Take 250 mg by mouth 2 (two) times a day 12/08/2011 9 estradiol (ESTRACE) 1 mg tablet Take 0.5 mg by mouth every morning Take one tablet daily for 21 days and then stop for 7 days 11/16/2017 9 dicyclomine (BENTYL) 10 mg capsule Take 10 mg by mouth 3 (three) times a day 06/07/2019 9 cyclobenzaprine (FLEXERIL) 10 mg tablet Take 5 mg by mouth 3 (three) times a day as needed 2 06/20/2019 9 docusate sodium (COLACE) 100 mg capsule Take 100 mg by mouth nightly 11/16/2017 9 cloNIDine (CATAPRES) 0.2 mg tablet Take 0.2 mg by mouth 2 (two) times a day 12/08/2011 9 cetirizine (ZyrTEC) 10 mg tablet Take 10 mg by mouth daily 12/18/2017 9 baclofen (LIORESAL) 10 mg tablet Take 10 mg by mouth 3 (three) times a day as needed 06/09/2019 9 AMLODIPINE BESYLATE, BULK, MISC Take 10 mg by mouth every morning 12/08/2011 9 zolpidem (AMBIEN) 10 mg tablet Take 10 mg by mouth nightly 06/13/2019 9 added in this encounter Active and Recently Administered Medications Times are shown in 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 Scheduled Medication Order 07/04/2019 07/05/2019 07/06/2019 acetaminophen (TYLENOL) tablet 1,000 mg 1,000 mg, oral, Every 6 hours scheduled, First dose on 07/01/19 at 1200 0510 (Not Given - Provider: Sharon Silva RN - Reason: Order parameters not met)1149 (Given - Provider: Belia Castañeda)1700 (Given - Provider: Belia Castañeda) 0053 (Given - Provider: Deepika Zaman RN)0609 (Given - Provider: Deepika Zaman, DARCI)1137 (Not Given - Provider: Glory Brenner RN - Reason: Contraindicated)1842 (Given - Provider: Glory Brenner RN)2310 (Given - Provider: Deepika Zaman RN) 0645 (Given - Provider: Deepika Zaman, DARCI)1211 (Given - Provider: Mary Lemus, DARCI) atorvastatin (LIPITOR) tablet 10 mg 10 mg, oral, Nightly, First dose (after last modification) on 07/01/19 at 2100 2110 (Given - Provider: Deepika Zaman, DARCI) 2146 (Given - Provider: Deepika Zaman, DARCI) baclofen (LIORESAL) tablet 2.5 mg 2.5 mg, oral, 3 times daily with meals, First dose (after last modification) on Wed07/04/19 at 0800 0830 (Given - Provider: Belia Castañeda)1150 (Given - Provider: Belia Castañeda)1701 (Given - Provider: Belia Castañeda) 0940 (Given - Provider: Glory Brenner, DARCI)1136 (Given - Provider: Glory Brenner, DARCI)1842 (Given - Provider: Glory Brenner, DARCI) 0823 (Given - Provider: Mary Lemus, DARCI)1211 (Given - Provider: Mary Lemus, DARCI) calcium carbonate (TUMS) chewable tablet 1,000 mg 1,000 mg (400 mg of elemental calcium), oral, Daily, First dose on Wed07/03/19 at 0900 0830 (Given - Provider: Belia Castañeda) 0937 (Given - Provider: Glory Brenner RN) 0824 (Given - Provider: Mary Lemus, DARCI) cyclobenzaprine (FLEXERIL) tablet 10 mg 10 mg, oral, 3 times daily, First dose (after last modification) on 07/01/19 at 1600 0830 (Given - Provider: Belia Castañeda)1659 (Given - Provider: Belia Castañeda)2109 (Given - Provider: Deepika Zaman RN) 0939 (Given - Provider: Glory Brenner, DARCI)1600 (Given - Provider: Glory Brenner RN)2146 (Given - Provider: Deepika Zaman, DARCI) 0823 (Given - Provider: Mary Lemus, DARCI)1526 (Given - Provider: Mary Lemus, DARCI) docusate sodium (DOK) tablet 100 mg 100 mg, oral, 2 times daily, First dose on 07/01/19 at 2100, Indications: constipation 0830 (Given - Provider: Belia Castañeda)2108 (Given - Provider: Deepika Zaman RN) 0937 (Given - Provider: Glory Brenner, DARCI)214 (Given - Provider: Deepika Zaman, DARCI) 0820 (Not Given - Provider: Mary Lemus RN - Reason: Order parameters not met - Comment: Pt having liquid BMs) enoxaparin (LOVENOX) syringe 40 mg 40 mg, subcutaneous, Every 12 hours scheduled, First dose on 07/01/19 at 0900, Indications: Deep Vein Thrombosis Prevention 0832 (Given - Provider: Belia Castañeda)211 (Given - Provider: Deepika Zaman, DARCI) 0937 (Given - Provider: Glory Brenner, DARCI)214 (Given - Provider: Deepika Zaman, DARCI) 0824 (Given - Provider: Mary Lemus, DARCI) furosemide (LASIX) tablet 40 mg 40 mg, oral, 2 times daily (for diuretics), First dose (after last modification) on 07/03/19 at 1600 0830 (Given - Provider: Belia Castañeda)1659 (Given - Provider: Belia Castañeda) 0900 (Given - Provider: Glory Brenner RN)1600 (Given - Provider: Glory Brenner RN) 0824 (Given - Provider: Mary Lemus, DARCI)1527 (Given - Provider: Mary Lemus, DARCI) gabapentin (NEURONTIN) capsule 400 mg 400 mg, oral, Every 8 hours, First dose (after last modification) on 07/01/19 at 1800 0216 (Given - Provider: Brooke Avalos RN)1044 (Given - Provider: Belia Castañeda)1659 (Given - Provider: Belia Castañeda) 0052 (Given - Provider: Deepika Zaman, DARCI)1000 (Given - Provider: Glory Brenner RN)1843 (Given - Provider: Glory Brenner RN) 0213 (Given - Provider: Deepika Zaman RN)1028 (Given - Provider: Mary Lemus RN) magnesium citrate oral solution 296 mL (COMPLETED) 296 mL, oral, Once, On Wed07/05/19 at 1015, For 1 dose 1134 (Given - Provider: Glory Brenner RN) metoprolol (LOPRESSOR) tablet 25 mg 25 mg, oral, Every 6 hours scheduled, First dose (after last modification) on 07/01/19 at 1045 0502 (Given - Provider: Brooke Avalos RN)1149 (Given - Provider: Belia Castañeda)1700 (Given - Provider: Belia Castañeda) 0053 (Given - Provider: Deepika Zaman, DARCI)0609 (Given - Provider: Deepika Zaman, DARCI)1134 (Given - Provider: Glory Brenner RN)1843 (Given - Provider: Glory Brenner RN)2310 (Given - Provider: Deepika Zaman, DARCI) 0646 (Given - Provider: Deepika Zaman, DARCI)1211 (Given - Provider: Mary Lemus, DARCI) pantoprazole DR (PROTONIX) extended release tablet 40 mg 40 mg, oral, Daily, First dose on Wed07/02/19 at 0900, Do not crush, chew, cut, dissolve, open or otherwise manipulate tablet/capsule., Indications: Treatment of Non-Bleeding Gastric Disorder 0830 (Given - Provider: Belia Castañeda) 0937 (Given - Provider: Glory Brenner, DARCI) 0823 (Given - Provider: Mary Lemus, DARCI) polyethylene glycol (MIRALAX) packet 17 g 17 g, oral, Daily, First dose (after last modification) on 07/01/19 at 0900, Indications: constipation 0906 (Not Given - Provider: Belia Castañeda - Reason: Patient/family refused) 1138 (Not Given - Provider: Glory Brenner RN - Reason: Patient/family refused) 0820 (Not Given - Provider: Mary Lemus RN - Reason: Order parameters not met - Comment: Pt having liquid BMs) primidone (MYSOLINE) tablet 50 mg 50 mg, oral, 2 times daily, First dose (after last modification) on 07/01/19 at 0900 0831 (Given - Provider: Belia Castañeda)210 (Given - Provider: Deepika Zaman RN) 0939 (Given - Provider: Glory Brenner RN)2146 (Given - Provider: Deepika Zaman RN) 0823 (Given - Provider: Mary Lemus, DARCI) senna (SENOKOT) tablet 1 tablet 1 tablet, oral, 2 times daily, First dose on 07/01/19 at 2100 0830 (Given - Provider: Belia Castañeda)210 (Given - Provider: Deepika Zaman RN) 0937 (Given - Provider: Golry Brenner, DARCI)2146 (Given - Provider: Deepika Zaman, DARCI) 0820 (Not Given - Provider: Mary Lemus RN - Reason: Order parameters not met - Comment: Pt having liquid BMs) PRN Medication Order 07/04/2019 07/05/2019 07/06/2019 albuterol HFA (PROVENTIL HFA,VENTOLIN HFA,PROAIR HFA) 90 mcg/actuation inhaler 2 puff 2 puff, inhalation, Every 6 hours PRN (incident response engineer), wheezing, Starting on Mercedes 06/29/19 at 0003 oxyCODONE (ROXICODONE) tablet 10 mg 10 mg, oral, Every 4 hours PRN, 2nd line for pain, Starting on 07/01/19 at 1051, Indications: Pain 0510 (Given - Provider: Sharon Silva RN)1051 (Given - Provider: Belia Castañeda)1701 (Given - Provider: Belia Castañeda)2109 (Given - Provider: Deepika Zaman, DARCI) 0609 (Given - Provider: Deepika Zaman, RN)1142 (Given - Provider: Glory Brenner, DARCI)1843 (Given - Provider: Glory Brenner RN)2310 (Given - Provider: Deepika Zaman, DARCI) 0645 (Given - Provider: Deepika Zaman, DARCI)1028 (Given - Provider: Mary Lemus, DARCI)1526 (Given - Provider: Mary Lemus, DARCI) documented in this encounter Orders Medications Ordered That Thomas ht Not Have Been Administered Count Last Ordered Date First Ordered Date baclofen (LIORESAL) tablet 2.5 mg 1 019 acetaminophen (TYLENOL) 32 m g/mL oral solution 1,000 mg 1 07/01/2019 cyclobenzaprine (FLEXERIL) tablet 5 mg 1 gabapentin (NEURONTIN) capsule 300 mg 1 01/2019 metoprolol (LOPRESSOR) tablet 25 mg 1 07/01 sodium chloride 0.9 % irrigation 2 06/30/20 19 06/28/2019 tobramycin (NEBCIN) topical irrigation 1 vancomycin (VANCOCIN) solution 1 06/30/2019 albuterol HFA (PROVENTIL HFA ,VENTOLIN HFA,PROAIR HFA) 90 mcg/actuation inhaler 2 puff 1 06/29/2019 dextrose (D10W) 10% bolus 250 mL 2 06/29/20 19 06/28/2019 dextrose (GLUTOSE) 40 % gel 15 g 2 06/29/20 19 06/28/2019 enoxaparin (LOVENOX) syringe 30 mg 2 201806/28/[address] (NexIUM) ext ended release oral suspension 20 mg 1 06/29/2019 fluticasone propion-salmeter ol (ADVAIR DISKUS) 100-50 mcg/dose diskus inhaler 1 puff 1 06/29/2019 glucagon injection 1 mg 2 06/29/2019 1210/2018 insulin lispro (HumaLOG) inj ection 1-3 Units 1 06/29/2019 insulin regular bolus from bag 4-10 Units 1 06/29/2019 insulin regular bolus from bag 4-6 Units 2 06/29/2019 06/28/2019 primidone (MYSOLINE) tablet 50 mg 1 019 chlorhexidine (PERIDEX) 0.12 % solution 15 mL 1 06/28/2019 furosemide (LASIX) 10 mg/mL injection 20 mg 1 06/28/2019 propofol (DIPRIVAN) IV 50 mg 1 06/28/2019 Lab Orders Without Results Count Last Ordered D ate First Ordered Date POCT GLUCOSE DEVICE 17 07/02/2019 06/28/20 19 VALPROIC ACID LEVEL, TOTAL 1 06/29/2019 CREATINE KINASE (CK), TOTAL 1 06/28/2019 ETHANOL 1 06/28/2019 POCT LACTATE - DEVICE 1 06/28/2019 TROPONIN I 1 06/28/2019 Imaging Orders Without Results Count Last Order ed Date First Ordered Date EXTUBATION 1 07/01/2019 General Supply Count Last Ordered Date First Or dered Date SLIDE BOARD 1 07/05/2019 WHEELCHAIR--MANUAL 1 07/05/2019 Diet Count Last Ordered Date First Orde red Date ADULT DISCHARGE DIET 1 07/04/2019 Nursing Count Last Ordered Date First Orde red Date DISCHARGE INSTRUCTIONS 1 07/06/2019 FOLLOW UP WITH DEPARTMENT 1 07/06/2019 FOLLOW UP WITH PROVIDER 2 07/06/2019 CARE ORDER/INSTRUCTION 1 07/04/2019 DISCHARGE CALL PROVIDER 6 07/04/2019 DISCHARGE DRESSING 3 07/04/2019 WEIGHT BEARING STATUS 1 07/04/2019 APPLY WARMING BLANKET 1 06/28/2019 NURSING COMMUNICATION 2 06/28/2019 Consult Count Last Ordered Date First Orde red Date IP CONSULT TO PAIN MANAGEMENT 1 07/01/2019 CONSULT TO ORTHO-TRAUMA 1 06/28/2019 Transfer Count Last Ordered Date First Orde red Date TRANSFER PATIENT 1 07/01/2019 Case Request Count Last Ordered Date First Orde red Date CASE REQUEST OPERATING ROOM 2 06/30/2019 06/28/2019 ADT Patient Update Count Last Ordered Date Firs t Ordered Date ED IP DECISION TO ADMIT 1 06/28/2019 documented in this encounter Care Teams Dynamometer Tuner Relationship Specialty Start Date End Date Bernardo Edwards MD [address] [place] [address] PCP - General 06/14/19 07/04/20 Jose Manuel Gruber MD Fellow Orthopedic Surgery 07/06/19 documented as of this encounter
--- OUTSIDE RECORDS SUMMARY | 2024-08-13 05:02 | XMS_ITS | Encounter Summary ---
Author Organization [facility] Healthcare Address [address] [place] [address] Care Team Providers Care Adult Education Manager Name Role Phone Bernardo Edwards MD Primary Care Provider [phone] Reason for Visit * Reason Comments Fall Encounter Details Date Type Department Care Team (Late st Contact Info) Description 06/30/2019 12:10 PM HOSE HANDLER - 06/30/2019 7:05 PM HOSE HANDLER Surgery [facility] Operating Room [address] [place] [address] Jacobo Shoemaker MD [address] [facility] [address] IRRIGATION AND DEBRIDEMENT ? TIBIA Surgery Details Date/Time Status Location OR Service Patient Class Case Class Case Type Trauma Case? 06/30/2019 12:10 PM Posted [facility] OR POD 2 205 Orthopaedics Inpatient Urgent - 24 hours Panel 1 Procedure LRB Anes Op Region Wound Class Comments IRRIGATION AND DEBRIDEMENT ? TIBIA Left General Leg Lower Class III - Contaminated OPEN REDUCTION INTERNAL FIXATION TIBIA - PROXIMAL - SYNTHES Left General Leg Lower Class I - Clean OPEN REDUCTION INTERNAL FIXATION - ANKLE Right General Ankle Class I - Clean Surgeon Surgeon Role Service Panel Migel Edwards MD Resident - Assisting 1 Jose Manuel Gruber MD Fellow Orthopaedics 1 Frederick Albarado MD Resident - Assisting Orthopae dics 1 Jacobo Shoemaker MD Primary Orthopa edics 1 documented in this encounter [...] Sign Reading Time Taken Comments Blood Pressure 90/65 06/30/2019 7:00 PM HOSE HANDLER Pulse 109 06/30/2019 7:00 PM HOSE HANDLER Temperature 37.5 ??C (99.5 ??F) 06/30/2019 7:00 PM CS T Respiratory Rate 22 06/30/2019 7:00 PM HOSE HANDLER Oxygen Saturation 100% 06/30/2019 7:00 PM HOSE HANDLER Inhaled Oxygen Concentration - - Weight 114 kg (251 lb 5.2 oz) 06/29/2019 2:00 AM HOSE HANDLER Height - - Body Mass Index 45.97 07/02/2019 7:20 AM HOSE HANDLER documented in this encounter Discharge Summaries * Roya Perez, YISSEL - 07/06/2019 1:[address] [facility] Trauma Surgery Inpatient Discharge Summary This [...] problems develop, please call the Trauma phone [phone] during the week or after hours, and ask to speak to the Trauma WAFFLE MACHINE OPERATOR or resident precision agriculture specialist. Please be aware all medications including narcotic pain medications cannot be called in over the phone. To refill, an appointment will need to be made with the appropriate medical or surgical service. You mayfollow up with your primary care physician for long-term management of medications and long-term medical conditions. For an appointment with the Trauma Clinic, Please call [phone] during normal business hours. Care Instructions: Daily [...] brace Slide Board Size: 36 in. The nhgl-mj-ffxz evaluation was performed on: 07/05/2019 DME services provided by: [facility] Special Instructions: Continue following PT/OT instructions You may not bear weight on your lower extremities until cleared to do so by orthopedic surgery You should be out of bed at least three times daily with your wheelchair Wheelchair--Manual Height: 157.5 cm (5' 2 ) Weight: 114 kg (251 lb 5.2 oz) Configuration: Bariatric (for pts greater than 250 lbs) Must meet the [facility] manual wheelchair qualifications AND patient weighs more [...] regular basis in the home?: Yes The tzpy-tv-qcad evaluation was performed on: 07/05/2019 DME services provided by: [facility] Call your Surgeon???s office from 8:00am-3:30pm at [...] Gruber MD Specialty: Orthopedic Surgery Relationship: Fellow [address] [facility] [address] [facility] [address] Next Steps: Follow up Instructions: Please attend your scheduled follow up appointment with orthopedic surgery. Questions: Instructions for follow-up (appointment date and time): Please attend your scheduled follow up appointment with orthopedic surgery. Hernando Velasquez MD Specialty: Internal Medicine [address] [facility] [address] Next Steps: Follow up Instructions: Please continue to follow with your primary care provider for general health maintenance and medication refills. Questions: Instructions for follow-up (appointment date and time): Please continue to follow with your primarycare provider for general health maintenance and medication refills. [facility] Specialty: Wound Care [address] [facility] [address] [facility] [address] Next Steps: Follow up Instructions: You may call to schedule a follow up with Trauma Services on an as needed basis. [phone] to schedule. Questions: Instructions for follow-up (appointment date and time): You may call to schedule a follow up with Trauma Services on an as needed basis. Call [phone] to schedule. Future Appointments Date Time Provider Department Center 07/21/2019 1:35 PM Jose Manuel Gruber MD [facility] OS I spent 45 minutes completing this hospital discharge. Roya Perez NP 07/06/19 CC: Hernando Velasquez MD Cosigned by Madhav Long DO at 07/06/2019 10:00 PM HOSE HANDLER HANDLER HANDLER Associated attestation - Madhav Long DO - 07/06/2019 10:00 PM HOSE HANDLER I have seen and examined the patient [...] Care Everywhere. * Chronic Hypertension (Discharge Care) ([place]ri [place]ankan) * ORIF of a Leg Fracture (Discharge Care) ([place]ankan) * ORIF of an Ankle Fracture (Discharge Care) ([place]) * Hinged Knee Brace (Discharge Care) ([place]ankan) * Acute Wound Care (Discharge Care) ([place]ankan) * How to Transfer a Person Safely (Discharge Care) ([place]ankan) * Wheel Chair Transfers (Discharge Care) ([place]an) documented in this encounter Medications at Time [...] Disposition Code Departure Means Destination Discharge to detention facility [facility] [place] documented in this encounter Progress Notes * Mily Rivera MSW - 07/06/2019 2:56 PM CST 07/06/19 2663 Discharge Summary Chart reviewed For Medical Necessity Does patient have a planned readmission to hospital planned? No Discharge Disposition SNF, Medicaid, Short Term Skilled [facility] Contact Number [phone] Discharge Records Chart Copied Equipment/Provider Needs No Home Needs Identified Discharge Additional Assistance Does the patient need discharge transport arranged? Yes Has discharge transport been arranged? Yes Details of Transportation [facility] ([phone]) Trip#[id number] What day is the transport expected? 07/06/19 [...] this time. Pt has been accepted by: [facility] at this time of discharge. SW spoke with [facility] and patient in regards to discharge and discharge planning and all are agreeable to discharge. Pt's chart has been copied. Orders faxed to: [phone]. Report: [phone]. Patient will admit under [employer] benefits. Mode of transport has been discussed with the patient/family, doctors, nurses, and [facility] ([phone])Trip#[id number] and all are agreeable to plan and [...] with 2 L of O2. Mily Rivera LMSW [phone] HANDLER * Josiane Arreola, RD - 07/05/2019 4:09 [...] Oral Nutrition Supplements Select Supplement: Chelsea - [place]ango (with breakfast and dinner) 2 times daily Question: Select Supplement: Answer: Chelsea - [place] Comment: with breakfast and dinner 07/05/19 1351 07/02/19 0753 Adult Diet Regular Diet effective now Question: ([facility]) Diet type Answer: Regular 07/02/19 0756 Assessment / Impression: Pt reports she has been consuming 50% of meals, no weight loss, usual weight of 242#, now 251# on admit. Pt reports she has gastroparesis so she has nausea sometimes. Pt reports fish allergy, entered in system. Pt had wound vac, now down, chelsea ordered. No weight loss. +BM a few days ago. Encouraged PO intake. RD following. Josiane Arreola, MS RD LD #[phone] HANDLER * Migel Merchant MD - 07/05/2019 7:48 [...] Ortho Signing off Call with questions Migel Mercahnt MD Department of Orthopaedic Surgery [facility] [place] If questions arise overnight, the OTS team can be reached at: [phone] (Floor Resident ) [phone] (Consult Resident) HANDLER * Leroy Reddy MD - 07/05/2019 6:[address] [facility] Trauma Surgery Daily Progress Subjective Patient [...] Reddy MD Department of Orthopaedic Surgery PGY1 [facility] in [facility] HANDLER * Leroy Reddy MD - 07/04/2019 10:[address] [facility] Trauma Surgery Daily Progress Subjective Patient [...] fracture 4. Noacute pelvic fracture. Dictated by: Lhu Moffett M.D. Xr Tibia Fibula Right 2 [...] Reddy MD Department of Orthopaedic Surgery PGY1 [facility] HANDLER * Leroy Reddy MD - 07/03/2019 1:[address] [facility] Trauma Surgery Daily Progress Subjective Patient [...] (L) 36.1 - 44.3 % Platelet POC [place] 188 140 - 440 K/cumm CBC without [...] - s/p ORIF- ANKLE (Right) 06/30 - SLS # Acute pain due to [...] Reddy MD Department of Orthopaedic Surgery PGY1 [facility] HANDLER * Mary Ann Barrett RN - 07/03/2019 8:36 AM CST 07/03/19 0835 Information Information Obtained From Patient Referral Data Referral Reason Discharge Planning Prior to Admission Primary Caregiver Self Support System Friends/neighbors Support system contact info (name, phone, availablity) friend Jt Contreras [phone] Durable Medical Equipment Walker (no wheels);Cane (single [...] Prior to admission, patient was open with [facility] [phone]. Patient was also receiving choreworker services through [facility]. Case management will continue to follow for discharge planning and referrals as needed. Insurance verified as: [employer], [place] Admit Source: non health care facility point [...] are in agreement with the aftercare plan. HANDLER * Niki Moore MD - 07/02/2019 1:[address] [facility] Trauma Surgery Daily Progress Subjective Patient [...] AM Result Value Ref Range Product code I0984C04 Unit Number [id number] Product Blood Type APOS Dispense Status PRESUMED [...] AM Result Value Ref Range Product code C9526R92 Unit Number [id number] Product Blood Type APOS Dispense Status RETURNED Product code Z1757A24 Unit Number [id number] Product Blood Type APOS Dispense Status PRESUMED [...] (L) 36.1 - 44.3 % Platelet POC [place] 188 140 - 440 K/cumm CBC without [...] fracture. Dictated by: Luh A Zuhair, M.D. Xr Tibia Fibula Left 2 Views [...] Madhav Long DO at 07/03/2019 5:41 PM HOSE HANDLER HANDLER HANDLER Associated attestation - Madhav Long DO - 07/03/2019 5:41 PM HOSE HANDLER I have seen and examined the patient [...] information documented by PT student Bashir Mckeon HANDLER * Blayne Aguilar MD - 07/02/2019 9:55 [...] TID kelin - Oxy 10 q4hr PRN (40) - Dilaudid 0.25q4hr PRN (0.5) Scheduled Medications: acetaminophen, 1,000 mg, oral, Q6H [...] Dietary Orders (From admission, onward) Start Ordered 07/02/19752 Adult Diet Regular Diet effective now Question: ([facility]) Diet type Answer: Regular 07/02/19 0753 Physical [...] Adithya Clark MD at 07/02/2019 11:38 AM HOSE HANDLER HANDLER HANDLER Associated attestation - Adithya Clark MD - 07/02/2019 11:38 AM HOSE HANDLER I have seen and examined the patient [...] Milo Forrester MD Department of Orthopaedic Surgery [facility] [place] If questions arise overnight, the OTS team can be reached at: [phone] (Floor Resident ) [phone] (Consult Resident) HANDLER HANDLER * Rosie Jay MD - 07/01/2019 4:[address] [facility] Trauma Surgery ICU Daily Progress Subjective [...] Range HCG, ur, POC Negative Lot Number [id number] QC Backgroud Clear Acceptable QC Control Line [...] PM Result Value Ref Range Product code N3995M69 Unit Number [id number] Product Blood Type ONEG Dispense Status RETURNED Product code Z4465K00 Unit Number [id number] Product Blood Type OPOS Dispense Status RETURNED Product code Y1413U97 Unit Number [id number] Product Blood Type ONEG Dispense Status RETURNED Product code U8154N95 Unit Number [id number] Product Blood Type OPOS Dispense Status RETURNED Product code J0482O64 Unit Number [id number] Product Blood Type OPOS Dispense Status PRESUMED TRANSFUSED Product code S1504I96 Unit Number [id number] Product Blood Type OPOS Dispense Status PRESUMED TRANSFUSED Product code A9936U70 Unit Number [id number] Product Blood Type APOS Dispense Status RETURNED Prepare RBC: 2 Units Collection Time: 06/28/19 9:18 PM Result Value Ref Range Product code J9873Y40 Unit Number [id number] Product Blood Type OPOS Dispense Status RETURNED Product code L9069E30 Unit Number [id number] Product Blood Type OPOS Dispense Status RETURNED [...] AM Result Value Ref Range Product code M4562J51 Unit Number [id number] Product Blood Type APOS Dispense Status PRESUMED [...] AM Result Value Ref Range Product code N4659L98 Unit Number [id number] Product Blood Type APOS Dispense Status RETURNED Product code K6803L63 Unit Number [id number] Product Blood Type APOS Dispense Status PRESUMED [...] (L) 36.1 - 44.3 % Platelet POC [place] 188 140 - 440 K/cumm CBC without [...] Madhav Long DO at 07/03/2019 1:28 PM HOSE HANDLER HANDLER HANDLER Associated attestation - Madhav Long DO - 07/03/2019 1:28 PM HOSE HANDLER I have seen and examined the patient on 07/01/19. I agree with the findings and plan of care as documented in the resident's/fellow's note. * Roxanne Gomez NP - 07/01/2019 4:40 PM CST CHUGG-OUT (SICU to OU/Floor Transfer) If this patient is transferring to the medicine service, please use .SICUMED rather than .CHUGGOUT to write this note. Admitting Dx: SLMF Current Problems: NWB BLE MD Consults: [] ACCS [] Cardiology [] Endo [...] Sign-out was called to Aaliyah of the [phone] QUESTIONS? Call [phone] HANDLER * Roxanne Gomez NP - 07/01/2019 7:08 [...] AM Result Value Ref Range Product code X5453N15 Unit Number [id number] Product Blood Type APOS Dispense Status CROSSMATCHED Product code H4322X68 Unit Number [id number] Product Blood Type APOS Dispense Status PRESUMED [...] (L) 36.1 - 44.3 % Platelet POC [place] 188 140 - 440 K/cumm CBC without [...] back 05/04 BL Home medications decreases pain -02/01 Home meds -> [place] 7.5/325 TID -> hold Baclofen 10 QID [...] Vascular access: PIV Goals of care:Full Code HANDLER * Milo Forrester MD - 07/01/2019 5:40 [...] elemental calcium oral BID 2,500 mg at 07/01/1914 ??? ceFAZolin (ANCEF) 2,000 mg/20 mL in [...] mg subcutaneous Q12H KELIN 40 mg at 07/01/19 0815 ??? esomeprazole DR (NexIUM) extended release oral suspension 40 mg 40 mg oral Daily 40 mg at 07/01/19813 ??? gabapentin (NEURONTIN) 50 mg/mL oral solution 300 mg 300 mg oral Q8H ??? HYDROmorphone (DILAUDID) injection 0.25 mg 0.25 mg intravenous Q4H PRN 0.25 mg at 07/01/19 0558 ??? insulin lispro (HumaLOG) injection 1-3 Units 1-3 Units subcutaneous Q4H KELIN ??? metoprolol (LOPRESSOR) tablet 25 mg 25 mg oral Q6H KELIN ??? ondansetron (ZOFRAN) injection 4 mg 4 mg intravenous Q6H PRN 4 mg at 07/01/19 0705 ??? oxyCODONE (ROXICODONE) 1 mg/mL oral solution 10 mg 10 mg feeding tube Q4H PRN 10 mg at 812 ??? polyethylene glycol (MIRALAX) packet 17 g 17 g oral Daily 17 g at 07/01/19813 ??? primidone (MYSOLINE) tablet 50 mg 50 mg oral BID 50 mg at 07/01/1914 ??? senna 1.76 mg/mL syrup 8.8 mg 8.8 mg oral BID 8.8 mg at 07/01/19 0814 Objective Vitals: 24hr Min/Max: Temp Min: 36 [...] Milo Forrester MD Department of Orthopaedic Surgery [facility] [place] If questions arise overnight, the OTS team can be reached at: [phone] (Floor Resident ) [phone] (Consult Resident) HANDLER HANDLER * Ina Flor PA - 06/30/2019 7:49 [...] AM Result Value Ref Range Product code C1032V67 Unit Number [id number] Product Blood Type APOS Dispense Status CROSSMATCHED Product code R4454I95 Unit Number [id number] Product Blood Type APOS Dispense Status PRESUMED [...] (L) 36.1 - 44.3 % Platelet POC [place] 188 140 - 440 K/cumm CBC without [...] agrees with it. Electronically signed by: Gilberto Jame Alfredo, M.D. Xr Tibia Fibula Left 2 Views [...] is favored to represent focal vasospasm/stenosis secondary toextrinsic arterial compression from the surrounding muscular edema. No evidence of arterial injury.3. Markedly comminuted, open, angulated, and displaced periprosthetic fracture of the left proximaltibia. 4. Comminuted, angulated, and displaced fracture of [...] been reviewed with attending, JOSE CRUZ Castellon HANDLER * Izabella Sinha, [facility] - 06/30/2019 10:21 AM CST Patient profile has been reviewed by clinical pharmacy technology instructor on 06/30/2019. Case reviewed on rounds with [...] mg, 1,000 mg, feeding tube, Q6H KELIN, Luz Moody NP, 1,000 mg at 06/30/19 0637 albuterol HFA (PROVENTIL HFA,VENTOLIN HFA,PROAIR HFA) 90 mcg/actuation inhaler 2 puff, 2 puff, inhalation, Q6H PRN (RT), Brittany Serrano NP atorvastatin (LIPITOR) tablet 10 mg, 10 mg, feeding tube, Nightly, Luz Driscoll NP, 10 mg at 06/29/192032 ceFAZolin (ANCEF) 2,000 mg/20 mL in sterile water (premix) 2,000 mg, 2,000 mg, intravenous, Q8H [facility], Mago Brian MD, Last Rate: 400 mL/hr [...] JOSE CRUZ Hinton, 800 mg at 06/30/19 09 polyethylene glycol (MIRALAX) packet 17 g, 17 g, feeding tube, Daily, Luz Driscoll NP, 17 g at 06/30/19 09 primidone (MYSOLINE) tablet 50 mg, 50 mg, feeding tube, BID, Brittany Serrano NP, 50 mg at 06/30/19 09 propofol (DIPRIVAN) IV, 5-50 mcg/kg/min, intravenous, Titrated, Brittany Serrano NP, Last Rate: 19.35 mL/hr at 06/30/19 1000, 30 mcg/kg/min at 06/30/19 1000 senna 1.76 mg/mL syrup 8.8 mg, 8.8 mg, feeding tube, BID, Brittany Serrano, YISSEL, 8.8 mg at 06/30/19 0856 Izabella Sinha [facility], PharmD, BCPS, BCCCP HANDLER * Roxanne Gomez WAFFLE MACHINE OPERATOR - 06/30/2019 6:51 AM CST Surgical ICU [...] AM Result Value Ref Range Product code F4949R25 Unit Number [id number] Product Blood Type APOS Dispense Status CROSSMATCHED Product code R6981N93 Unit Number [id number] Product Blood Type APOS Dispense Status ISSUED [...] AM Result Value Ref Range Product code V6833U81 Unit Number [id number] Product Blood Type APOS Dispense Status ISSUED [...] 4. Noacute pelvic fracture. Dictated by: Luh Mfofett M.D. The radiology attending physician has personally [...] Lovenox 40mg HS Goals of care:Full Code HANDLER * Ana Acosta MD - 06/30/2019 6:[address] [facility] Trauma Surgery ICU Daily Progress Subjective [...] Hanley Creatine kinase (CK), total Collection Time: 12/04/19 5:02 PM Result Value Ref Range CK [...] Range HCG, ur, POC Negative Lot Number [id number] QC Backgroud Clear Acceptable QC Control Line [...] PM Result Value Ref Range Product code S8043W81 Unit Number [id number] Product Blood Type ONEG Dispense Status RETURNED Product code N5976C46 Unit Number [id number] Product Blood Type OPOS Dispense Status RETURNED Product code R2424C30 Unit Number [id number] Product Blood Type ONEG Dispense Status RETURNED Product code V2512P63 Unit Number [id number] Product Blood Type OPOS Dispense Status RETURNED Product code W6199P84 Unit Number [id number] Product Blood Type OPOS Dispense Status PRESUMED TRANSFUSED Product code U0006G29 Unit Number [id number] Product Blood Type OPOS Dispense Status PRESUMED TRANSFUSED Prepare RBC: 2 Units Collection Time: 06/28/19 9:18 PM Result Value Ref Range Product code C2070K52 Unit Number [id number] Product Blood Type OPOS Dispense Status RETURNED Product code N9041T96 Unit Number [id number] Product Blood Type OPOS Dispense Status RETURNED [...] AM Result Value Ref Range Product code Y4658I68 Unit Number [id number] Product Blood Type APOS Dispense Status ISSUED [...] Acosta M.D. General Surgery, PGY-4 6:38 AM [phone] Cosigned by Milton Leiva MD at 06/30/2019 11:18 AM HOSE HANDLER HANDLER HANDLER Associated attestation - Milton Leiva MD - 06/30/2019 11:18 AM HOSE HANDLER I have seen and examined the patient [...] 15 mL mouth/throat BID 15 mL at 06/30/19904 ??? cyclobenzaprine (FLEXERIL) tablet 5 mg 5 [...] 12.5-400 mcg/hr intravenous Titrated 2 mL/hr at 06/30/19 1600 100 mcg/hr at 06/30/19 1600 ??? gabapentin (NEURONTIN) 50 mg/mL oral solution 300 mg 300 mg feeding tube Q8H 300 mg at ??? insulin lispro (HumaLOG) injection 1-3 Units 1-3 Units subcutaneous Q4H KELIN ??? magnesium oxide (MAG-OX) tablet 800 mg 800 mg feeding tube BID 800 mg at 06/30/19 0905 ??? metoprolol (LOPRESSOR) injection 5 mg 5 mg intravenous Q4H 5 mg at 06/30/19 1106 ??? oxyCODONE (ROXICODONE) 1 mg/mL oral solution 10 mg 10 mg feeding tube Q4H 10 mg at 06/30/19 1106 ??? polyethylene glycol (MIRALAX) packet 17 g 17 g feeding tube Daily 17 g at 06/30/19 0905 ??? primidone (MYSOLINE) tablet 50 mg 50 mg feeding tube BID 50 mg at 06/30/19 0905 ??? propofol (DIPRIVAN) IV 5-50 mcg/kg/min intravenous [...] 1904.6 [I.V.:897.6; Blood:350; NG/GT:380; IV Piggyback:277] Out: 1910 [Urine:1610; Drains:300] I/O this shift: In: 1592.2 [...] Migel Merchant MD Department of Orthopaedic Surgery [facility] [place] If questions arise overnight, the OTS team can be reached at: [phone] (Floor Resident ) [phone] (Consult Resident) HANDLER * Ina Flor PA - 06/29/2019 7:35 [...] 25 mL/hr, Last Rate: 25 mL/hr (06/29/19 1800) fentaNYL, 12.5-400 mcg/hr, Last Rate: 50 mcg/hr [...] AM Result Value Ref Range Product code F1894H81 Unit Number [id number] Product Blood Type APOS Dispense Status ISSUED [...] PM Result Value Ref Range Product code C1578O90 Unit Number [id number] Product Blood Type ONEG Dispense Status RETURNED Product code X0244V71 Unit Number [id number] Product Blood Type OPOS Dispense Status RETURNED Product code H2291Z51 Unit Number [id number] Product Blood Type ONEG Dispense Status RETURNED Product code V5642M69 Unit Number [id number] Product Blood Type OPOS Dispense Status RETURNED Product code O1055K14 Unit Number [id number] Product Blood Type OPOS Dispense Status PRESUMED TRANSFUSED Product code D7935L66 Unit Number [id number] Product Blood Type OPOS Dispense Status PRESUMED TRANSFUSED Prepare RBC: 2 Units Collection Time: 06/28/19 9:18 PM Result Value Ref Range Product code D0140H75 Unit Number [id number] Product Blood Type OPOS Dispense Status RETURNED Product code Y2365A50 Unit Number [id number] Product Blood Type OPOS Dispense Status RETURNED [...] remains intubated for OR tomorrow - ACVC ///5 - Plan to PSV post op - [...] in ED ?? #Right medial mal fracture: 2/ fall -S/p washout and splint 06/28. -Ortho Trauma following. -Plan to return to OR for further repair or Wednesday -NWB Intensive Care Unit Standards of Care: Restraints: none DVT prophylaxis: holding for OR Vascular access: sara TINAJERO Goals of care: Full code Assessment and plan has been reviewed with attending, JOSE CRUZ Castellon HANDLER * Ana Acosta MD - 06/29/2019 10:[address] [facility] Trauma Surgery ICU Daily Progress Subjective [...] Range HCG, ur, POC Negative Lot Number [id number] QC Backgroud Clear Acceptable QC Control Line [...] PM Result Value Ref Range Product code N0344Q53 Unit Number [id number] Product Blood Type ONEG Dispense Status RETURNED Product code J4917A90 Unit Number [id number] Product Blood Type OPOS Dispense Status RETURNED Product code N8149O59 Unit Number [id number] Product Blood Type ONEG Dispense Status RETURNED Product code M3525T40 Unit Number [id number] Product Blood Type OPOS Dispense Status RETURNED Product code Y6890S08 Unit Number [id number] Product Blood Type OPOS Dispense Status PRESUMED TRANSFUSED Product code U9316W96 Unit Number [id number] Product Blood Type OPOS Dispense Status PRESUMED TRANSFUSED Prepare RBC: 2 Units Collection Time: 06/28/19 9:18 PM Result Value Ref Range Product code [id number] Unit Number [id number] Product Blood Type OPOS Dispense Status RETURNED Product code [id number] Unit Number [id number] Product Blood Type OPOS Dispense Status RETURNED [...] Acosta M.D. General Surgery, PGY-4 10:22 AM [phone] Cosigned by Marcia Bowen MD at 08/02/2019 11:23 AM HOSE HANDLER HANDLER HANDLER Associated attestation - Marcia Bowen MD - 08/02/2019 11:23 AM HOSE HANDLER I have seen and examined the patient on 06/29/2019. I agree with the findings and plan of care as documented in the resident's/fellow's note. * Sinha Izabella, [facility] - 06/29/2019 9:15 AM CST Patient profile has been reviewed by clinical pharmacy technology instructor on 06/29/2019. Case reviewed on rounds with [...] IV 50 mg, 50 mg, intravenous, Once, Holly oMnzon MD, Stopped at 06/28/19 1858 propofol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 T15 FULL - [id number] 3.5mm 2.9mm 10mm Self Tap Lock Stardrive Conical Head T15 Full Synthes Left 1 SYNTHES 212.107 3.5MM 2.9MM 22MM SELF TAP LOCK STARDRIVE CONICAL HEAD T15 FULL - [id number] 3.5mm 2.9mm 22mm Self Tap Lock Stardrive Conical Head T15 Full Synthes Left 1 SYNTHES 204.840 3.5MM 6MM 40MM 2.5MM SELF TAP SMALL HEXAGONAL SOCKET LOW PROFILE - [id number] SYNTHES 204.840 3.5mm 6mm 40mm 2.5mm Self Tap Small Hexagonal Socket Low Profile Synthes Left 1 SYNTHES 204.832 3.5MM 6MM 32MM 2.5MM SELF TAP SMALL HEXAGONAL SOCKET LOW PROFILE - [id number] SYNTHES 204.832 3.5mm 6mm 32mm 2.5mm Self Tap Small Hexagonal Socket Low Profile Synthes Left 1 SYNTHES 241.351 LCP 12MM [id number] .7MM 5 HOLE COLLAR 1/3 TUBULAR PLATE BONE - [id number] SYNTHES 241.351 Lcp 12mm [id number] .7mm 5 Hole Collar 1/3 Tubular Plate Bone Synthes Left 1 SYNTHES 241.351 LCP 12MM [id number] .7MM 5 HOLE COLLAR 1/3 TUBULAR PLATE BONE - [id number] SYNTHES 241.351 Lcp 12mm [id number] .7mm 5 Hole Collar 1/3 Tubular Plate Bone Synthes Right 1 SYNTHES 204.826 3.5MM 6MM 26MM 2.5MM SELF TAP SMALL HEXAGONAL SOCKET LOW PROFILE - [id number] SYNTHES 204.826 3.5mm 6mm 26mm 2.5mm Self Tap Small Hexagonal Socket Low Profile Synthes Right 1 SYNTHES 212.102 3.5MM 2.9MM 12MM SELF TAP LOCK STARDRIVE CONICAL HEAD T15 FULL - [id number] 3.5mm 2.9mm 12mm Self Tap Lock Stardrive Conical Head T15 Full Synthes Right 1 SYNTHES 212.114 3.5MM 2.9MM 35MM SELF TAP LOCK STARDRIVE CONICAL HEAD T15 FULL - [id number] 3.5mm 2.9mm 35mm Self Tap Lock Stardrive [...] Jacobo Shoemaker MD at 07/03/2019 6:00 AM HOSE HANDLER HANDLER HANDLER * Plan of Care - Deandra Bone MSW - 06/30/2019 12:49 PM CST Problem: Patient remains in the ICU, on a vent, and is not medically stable for discharge at this time. Chart reviewed and patient discussed in DCAM rounds by team. Arterial line. Fentanyl, propofol gtt. Harvest Manager remains involved for discharge planning and possible placement needs. Intervention/Plan: Patient will be referred to skilled/rehab/LTAC facilities of choice and screenedfor potential admission when appropriate pending guidance from team and therapy recommendations. Patient will benefit from continued assessment and therapy recommendations once more medically stable. Goal: Harvest Manager to continue to follow for discharge planning assistance, formation of a safe discharge plan, and emotional support for family as needed. Deandra Bone, [facility] [phone] HANDLER * Plan of Care - Allyson Tony [...] Please call me at for further inquiries. HANDLER * Plan of Care - Umer Peguero RRT - 06/30/2019 5:34 AM CST Patient will continue on A/C VC mode of ventilator as ordered by . No BEST trial this morning. HANDLER * Initial Assessments - Ina Pinedo - 06/29/2019 2:24 PM CST Problem: Patient is admitted to the ICU and may need continued care at discharge. History: Harvest Manager spoke with patient's friend Jt to provide [...] functioning and return home with family support. Harvest Manager listened and provided support and encouragement. Harvest Manager to follow for discharge planning needs. Insurance: [employer] and [employer] Education/Plan of Care: Harvest Manager spoke at length with patient's friend to discuss discharge planning and plan of care. Physical therapy recommendations for level of care at discharge are pendingcontinued assessment. Harvest Manager provided a brief education on home health care, SNF/rehab/LTAC facilities, criteria and insurance coverage. Patient's family verbalized understanding of education provided. Harvest Manager will provide a list of facility options for family to review once recommendations areknown and refer patient to facilities of choice. Patient's friend does not know who the patient's PCP is. Patient's pharmacy of choice is [facility] in [place]. Harvest Manager to follow for discharge planning needs and assist with placement. Additional Information/Barriers: Patient's friend Jt reports the prior to coming to the hospital the patient was receiving [facility] services from [facility]. These services helped clean the apartment and [...] and prognosis as wellas can be expected. Harvest Manager to offer support and encouragement. AD/DPOA/Guardianship: Patient's friend unsure if patient has DPOA. Patient's friend states DPOA maybe patient's daughter who lives in [place]. Goal: Implement placement referral/needs, family support, and assist with any additional discharge services as needed. Goals include: To assure continuity of care, To maximize coping skills, To assure patient is in a safe environment and To assure access to community resources. Plan includes: Collaboration with patient/family, Attending, WAFFLE MACHINE OPERATOR, RN, CM and other members of the health care team to assure needed interventions completed. Return patient to optimal level of self-care post discharge. Harvest Manager will follow for Discharge Planning - interventions [...] are in agreement with the aftercare plan. Harvest Manager to follow as guided by team. Directives: Advance Directives (For Healthcare) Advance Directive: Patient has advance directive, copy not in chart (06/29/191419) Assessment: Information Information Obtained From: Other (Specify) Name: patient's friend Jt Referral Data Referral Reason: Discharge Planning Prior to Admission Primary Caregiver: Other (Comment) Support System: Friends/neighbors Home Care Services: Yes Type of Home Care Services: Other (Comment) Home care service name and phone number: [facility] Durable Medical Equipment: Walker (no wheels), Wheelchair, Cane (single prong) Living Arrangements: Alone Type of Residence: Apartment Steps in home? : Yes, Outside of home Number of steps outside:: 40 steps Medication management: Unable to Assess (06/29/191419) Communication: JAYNE Briones Cabinet Abrasive Sandblaster Deandra Bone, [facility], [facility] [phone] Cosigned by Deandra Bone STITCHER STANDARD MACHINE at 06/29/2019 3:11 PM HOSE HANDLER HANDLER HANDLER * Plan of Care - Allyson Tony [...] any d/c needs. Please call me at [phone] for further inquiries. Goal: Transfer out of the ICU to nursing division when medically stable. SW and Case management services will continue to follow for any d/c needs. Please call me at [phone] for further inquiries. HANDLER * Provider Query - Nora Queen - [...] patient's medical record. Sincerely, Nora Queen RN, [facility] Health Information Management HANDLER * Provider Query - Nora Queen - [...] patient's medical record. Sincerely, Nora Queen RN, [facility] Health Information Management HANDLER * Plan of Care - Zulema Akers RN - 06/29/2019 8:23 AM CST Problem: Lack of Knowledge: Goal: Knowledge of restraints will improve Description INTERVENTIONS: 1. Educate patient/caregiver on restraints Outcome: Not Progressing Problem: Safety - Medical Restraint Goal: Remains free of injury from restraints (Restraint for Interference with Freezer Operator) Description INTERVENTIONS: 1. Identify and document the [...] Free from restraint(s) (Restraint for Interference with Freezer Operator) Description INTERVENTIONS: 1. Q2H and PRN: Assess [...] control, pain control, OR today, wean vasopressors HANDLER * Plan of Care - Carina Reynoso POLICE DISTRICT SWITCHBOARD OPERATOR - 06/29/2019 6:16 AM CST Impression: Pt resting on full vent support. Plan: Evaluate for ability to wean from vent. Continue to wean FiO2% as tolerated. HANDLER * Plan of Care - Lizette Dutton RN - 06/29/2019 5:36 AM CST Problem: Lack of Knowledge: Goal: Knowledge of restraints will improve Description INTERVENTIONS: 1. Educate patient/caregiver on restraints Outcome: Progressing Problem: Safety - Medical Restraint Goal: Remains free of injury from restraints (Restraint for Interference with Freezer Operator) Description INTERVENTIONS: 1. Identify and document the [...] Free from restraint(s) (Restraint for Interference with Freezer Operator) Description INTERVENTIONS: 1. Q2H and PRN: Assess [...] gtt. Pain control,. review lab results. Summary: HANDLER * Op Note - Lo Laura DO - 06/28/2019 9:40 PM CST Operative Note ?? Attending Surgeon: Lo Laura, DO Surgical Assistants: Resident *Rui Cohen MD [...] Reduction was obtained and maintained with a [id number] clamp. An 8 hole 3.5mm LSP synthes [...] DO ?? Date: 06/28/2019 Time: 11:57 pm HANDLER * ED Procedure Note - Forrest Begum [...] the admitting team. Forrest Begum MD 06/28/191950 HANDLER * ED Procedure Note - Forrest Begum MD - 06/28/2019 6:51 PM CSTAssociated Order(s): ECG 12 lead Procedure ECG 12 lead Date/Time: 06/28/2019 6:51 PM Performed by: Forrest Begum MD Authorized by: Holly Monzon MD Rate: ECG rate: 77 ECG rate assessment: normal Rhythm: Rhythm: sinus rhythm Ectopy: Ectopy: none QRS: QRS axis: Left QRS intervals: Normal Conduction: Conduction: normal ST segments: ST segments: Normal T waves: T waves: normal Other findings: Other findings: LVH Previous ECG: Previous ECG: Compared to current Date of previous EC06/09/2019 Similarity: No change Interpretation: Interpretation: abnormal Forrest Begum MD 06/28/19 185 HANDLER * ED Procedure Note - Mago Brian MD - 06/28/2019 5:37 PM HOSE HANDLER Associated Order(s): Intubation Procedure Intubation Date/Time: 06/28/2019 5:37 PM Performed by: Mago Brian MD Authorized by: Forrest Begum MD [place] Protocol: RN Notified of Procedure: yes Informed [...] and matched to patient identification: n/a Responsible green party for transporting specimen(s) to lab determined: n/a Mago Brian MD Resident 06/28/19 1739 Cosigned by Forrest Begum MD at 06/29/2019 11:06 PM HOSE HANDLER HANDLER HANDLER Associated attestation - Forrest Begum MD - 06/29/2019 11:06 PM HOSE HANDLER I was present for the entire procedure documented in this encounter Plan of Treatment Pending Results Name Type Priority Associated Diagnoses Date /Time Check Sample Lab STAT 06/28/2019 6 :54 PM HOSE HANDLER Scheduled Orders Name Type Priority Associated Diagnoses Orde r Schedule Check Sample Lab STAT Once for 1 O ccurrences starting 06/28/2019 until 06/28/2019 documented as of this encounter Procedures Procedure Name Priority Date/Time Associated Diagnosis Comments POCT GLUCOSE DEVICE Routine 07/02/2019 7 :35 AM HOSE HANDLER POCT GLUCOSE DEVICE Routine 07/02/2019 4 :08 AM HOSE HANDLER POCT GLUCOSE DEVICE Routine 07/01/2019 11:57 PM HOSE HANDLER POCT GLUCOSE DEVICE Routine 07/01/2019 9 :21 PM HOSE HANDLER CALCIUM, IONIZED Routine 07/01/2019 9:14 PM HOSE HANDLER CBC WITHOUT DIFFERENTIAL Routine 019 9:14 PM HOSE HANDLER PHOSPHORUS Routine 07/01/2019 9:14 PM HOSE HANDLER MAGNESIUM Routine 07/01/2019 9:14 PM HOSE HANDLER BASIC METABOLIC PANEL Routine 07/01/2019 9:14 PM HOSE HANDLER INFECTION PREVENTION MRSA ONLY (STAPHYLOCOCCUS AUREUS) CULTURE Routine 07/01/2019 2:19 PM HOSE HANDLER POCT GLUCOSE DEVICE Routine 07/01/2019 7 :41 AM HOSE HANDLER CRITICAL CARE Routine 07/01/2019 7:09 AM HOSE HANDLER Hypotension due to drugs Acute postoperative pain Bilateral lower extremity pain Bipolar I disorder with anxious distress (CMS/HCC) Intractable seizure disorder (CMS/HCC) Moderate essential hypertension Syncope due to sick sinus syndrome (CMS/HCC) EXTUBATION Routine 07/01/2019 5:26 AM HOSE HANDLER POCT GLUCOSE DEVICE Routine 06/30/2019 11:43 PM HOSE HANDLER CBC WITHOUT DIFFERENTIAL Routine 019 10:06 PM HOSE HANDLER MAGNESIUM Routine 06/30/2019 10:06 PM HOSE HANDLER BLOOD GAS, ARTERIAL Routine 06/30/2019 10:06 PM HOSE HANDLER BASIC METABOLIC PANEL Routine 06/30/2019 10:06 PM HOSE HANDLER CRITICAL CARE Routine 06/30/2019 7:50 PM HOSE HANDLER Type III open displaced comminuted fracture of shaft of left tibia, initial encounter XR CHEST 1 VIEW IP Routine 06/30/2019 7:01 PM HOSE HANDLER LACTATE, WHOLE BLOOD Routine 06/30/2019 4:23 PM HOSE HANDLER APTT Routine 06/30/2019 4:21 PM HOSE HANDLER PROTIME-INR Routine 06/30/2019 4:21 PM HOSE HANDLER CBC WITHOUT DIFFERENTIAL Routine 019 4:21 PM HOSE HANDLER FL FLUOROSCOPY < 1 HOUR IP Routine 06/30/20 19 2:51 PM HOSE HANDLER TRANSFUSE RED BLOOD CELLS Timed 06/30/2019 2:13 PM HOSE HANDLER POCT PLATELET COUNT AND HEMATOCRIT Routine 06/30/2019 1:28 PM HOSE HANDLER POC BLOOD GAS AND CHEMISTRIES, VENOUS Routine 06/30/2019 1:27 PM HOSE HANDLER OPEN REDUCTION INTERNAL FIXATION - ANKLE 06/30/2019 1:04 PM HOSE HANDLER Type III open displaced comminuted fracture of shaft of left tibia, initial encounter OPEN REDUCTION INTERNAL FIXATION TIBIA - PROXIMAL - SYNTHES 06/30/2019 1:04 PM HOSE HANDLER Type III open displaced comminuted fracture of shaft of left tibia, initial encounter IRRIGATION AND DEBRIDEMENT ? TIBIA 06/30/2019 1:04 PM HOSE HANDLER Type III open displaced comminuted fracture of shaft of left tibia, initial encounter DIFFERENTIAL AUTO Routine 06/30/2019 11:27 AM HOSE HANDLER CBC WITH AUTO DIFFERENTIAL Routine 06/30/2019 11:27 AM HOSE HANDLER PREPARE RBC STAT 06/30/2019 10:49 AM HOSE HANDLER POCT GLUCOSE DEVICE Routine 06/30/2019 8 :07 AM HOSE HANDLER CRITICAL CARE Routine 06/30/2019 6:51 AM HOSE HANDLER Type III open displaced comminuted fracture of shaft of left tibia, initial encounter CBC WITHOUT DIFFERENTIAL Routine 019 4:35 AM HOSE HANDLER POCT GLUCOSE DEVICE Routine 06/30/2019 3 :36 AM HOSE HANDLER TRANSFUSE RED BLOOD CELLS Timed 06/30/2019 1:20 AM HOSE HANDLER PREPARE RBC Timed 06/30/2019 12:45 AM HOSE HANDLER POCT GLUCOSE DEVICE Routine 06/29/2019 11:46 PM HOSE HANDLER CBC WITHOUT DIFFERENTIAL STAT 019 11:23 PM HOSE HANDLER DIFFERENTIAL AUTO Routine 06/29/2019 10:35 PM HOSE HANDLER CBC WITH AUTO DIFFERENTIAL Routine 06/29/2019 10:35 PM HOSE HANDLER PHOSPHORUS Routine 06/29/2019 10:35 PM HOSE HANDLER MAGNESIUM Routine 06/29/2019 10:35 PM HOSE HANDLER BASIC METABOLIC PANEL Routine 06/29/2019 10:35 PM HOSE HANDLER POCT GLUCOSE DEVICE Routine 06/29/2019 9 :17 PM HOSE HANDLER POCT GLUCOSE DEVICE Routine 06/29/2019 7 :54 PM HOSE HANDLER CRITICAL CARE Routine 06/29/2019 7:35 PM HOSE HANDLER Type III open displaced comminuted fracture of shaft of left tibia, initial encounter POCT GLUCOSE DEVICE Routine 06/29/2019 7 :13 PM HOSE HANDLER XR CHEST 1 VIEW IP Routine 06/29/2019 6:40 PM HOSE HANDLER POCT GLUCOSE DEVICE Routine 06/29/2019 5 :45 PM HOSE HANDLER POCT GLUCOSE DEVICE Routine 06/29/2019 5 :44 PM HOSE HANDLER GENTAMICIN LEVEL TROUGH Timed 06/29/20 19 4:59 PM HOSE HANDLER POCT GLUCOSE DEVICE Routine 06/29/2019 4 :58 PM HOSE HANDLER POCT GLUCOSE DEVICE Routine 06/29/2019 4 :57 PM HOSE HANDLER POCT GLUCOSE DEVICE Routine 06/29/2019 4 :00 PM HOSE HANDLER POCT GLUCOSE DEVICE Routine 06/29/2019 1 :58 PM HOSE HANDLER POCT GLUCOSE DEVICE Routine 06/29/2019 1 :15 PM HOSE HANDLER POCT GLUCOSE DEVICE Routine 06/29/2019 12:07 PM HOSE HANDLER POCT GLUCOSE DEVICE Routine 06/29/2019 11:13 AM HOSE HANDLER POCT GLUCOSE DEVICE Routine 06/29/2019 10:05 AM HOSE HANDLER [place] ARTL CATHJ/CANNULJ MNTR/TRANSFUSION SPX PRQ Routine 06/29/2019 9:16 AM HOSE HANDLER Hypotension due to drugs POCT GLUCOSE DEVICE Routine 06/29/2019 9 :06 AM HOSE HANDLER POCT GLUCOSE DEVICE Routine 06/29/2019 8 :05 AM HOSE HANDLER CRITICAL CARE Routine 06/29/2019 7:33 AM HOSE HANDLER Type III open displaced comminuted fracture of shaft of left tibia, initial encounter POCT GLUCOSE DEVICE Routine 06/29/2019 7 :02 AM HOSE HANDLER POCT GLUCOSE DEVICE Routine 06/29/2019 6 :15 AM HOSE HANDLER DIFFERENTIAL AUTO Timed 06/29/2019 5:0 7 AM HOSE HANDLER CBC WITH AUTO DIFFERENTIAL Timed 06/29/2019 5:07 AM HOSE HANDLER LACTATE, WHOLE BLOOD Timed 06/29/2019 5:07 AM HOSE HANDLER POCT GLUCOSE DEVICE Routine 06/29/2019 5 :04 AM HOSE HANDLER POCT GLUCOSE DEVICE Routine 06/29/2019 3 :57 AM HOSE HANDLER POCT GLUCOSE DEVICE Routine 06/29/2019 3 :01 AM HOSE HANDLER POCT GLUCOSE DEVICE Routine 06/29/2019 1 :54 AM HOSE HANDLER POCT GLUCOSE DEVICE Routine 06/29/2019 1 :16 AM HOSE HANDLER XR CHEST 1 VIEW Timed 06/29/2019 12:33 AM HOSE HANDLER POCT GLUCOSE DEVICE Routine 06/29/2019 12:02 AM HOSE HANDLER POTASSIUM, WHOLE BLOOD STAT 9 12:00 AM HOSE HANDLER DIFFERENTIAL AUTO STAT 06/29/2019 12:00 AM HOSE HANDLER CALCIUM, IONIZED STAT 06/29/2019 12:00 AM HOSE HANDLER BETA-HYDROXYBUTYRATE Routine 06/29/2019 12:00 AM HOSE HANDLER CBC WITH AUTO DIFFERENTIAL STAT 06/29/2019 12:00 AM HOSE HANDLER LACTATE, WHOLE BLOOD STAT 06/29/2019 12:00 AM HOSE HANDLER INFECTION PREVENTION MRSA ONLY (STAPHYLOCOCCUS AUREUS) CULTURE Routine 06/29/2019 12:00 AM HOSE HANDLER PHOSPHORUS STAT 06/29/2019 12:00 AM HOSE HANDLER MAGNESIUM STAT 06/29/2019 12:00 AM HOSE HANDLER BLOOD GAS, ARTERIAL STAT 06/29/2019 12:00 AM HOSE HANDLER VALPROIC ACID LEVEL, TOTAL STAT 06/29/2019 12:00 AM HOSE HANDLER BASIC METABOLIC PANEL STAT 06/29/2019 12:00 AM HOSE HANDLER CRITICAL CARE Routine 06/28/2019 11:57 PM HOSE HANDLER Type III open displaced comminuted fracture of shaft of left tibia, initial encounter Hypotension due to drugs POCT GLUCOSE DEVICE Routine 06/28/2019 11:33 PM HOSE HANDLER FL FLUOROSCOPY < 1 HOUR IP Routine 06/28/20 19 10:47 PM HOSE HANDLER B CHECK SAMPLE STAT 06/28/2019 10:33 PM HOSE HANDLER POC BLOOD GAS AND CHEMISTRIES, VENOUS Routine 06/28/2019 10:25 PM HOSE HANDLER TYPE AND SCREEN STAT 06/28/2019 10:02 PM HOSE HANDLER POCT GLUCOSE DEVICE Routine 06/28/2019 9 :39 PM HOSE HANDLER PREPARE RBC STAT 06/28/2019 9:18 PM HOSE HANDLER PREPARE RBC Routine 06/28/2019 8:51 PM HOSE HANDLER DIFFERENTIAL AUTO STAT 06/28/2019 8:4 2 PM HOSE HANDLER CBC WITH AUTO DIFFERENTIAL STAT 06/28/2019 8:42 PM HOSE HANDLER POCT GLUCOSE DEVICE Routine 06/28/2019 8 :26 PM HOSE HANDLER NJ CRITICAL CARE ILL/INJURED PATIENT ADDL 30 MIN Routine 06/28/2019 7:50 PM HOSE HANDLER [place] CRITICAL CARE ILL/INJURED PATIENT INIT 30-74 MIN Routine 06/28/2019 7:50 PM HOSE HANDLER POCT GLUCOSE DEVICE Routine 06/28/2019 7 :31 PM HOSE HANDLER POCT HCG, URINE Routine 06/28/2019 7:23 PM HOSE HANDLER XR TIBIA FIBULA LEFT 2 VIEWS ED 06/28/2019 7:20 PM HOSE HANDLER XR PELVIS 1 OR 2 VIEWS ED 9 7:19 PM HOSE HANDLER XR TIBIA FIBULA RIGHT2 VIEWS ED 06/28/2019 7:19 PM HOSE HANDLER XR ANKLE LEFT 3 OR MORE VIEWS ED 06/28/2019 7:19 PM HOSE HANDLER XR CHEST 1 VIEW ED 06/28/2019 7:19 PM HOSE HANDLER XR FEMUR LEFT 2 OR MORE VIEWS ED 06/28/2019 7:19 PM HOSE HANDLER XR KNEE LEFT 1 OR 2 VIEWS ED 06/28/2019 7:19 PM HOSE HANDLER XR ANKLE RIGHT 3 OR MORE VIEWS ED 06/28/2019 7:18 PM HOSE HANDLER FENTANYL CONFIRMATION, MS URINE STAT 06/28/2019 6:54 PM HOSE HANDLER DRUGS OF ABUSE SCREEN, URINE WITH REFLEX CONFIRMATION STAT 06/28/2019 6:54 PM HOSE HANDLER POTASSIUM, WHOLE BLOOD STAT 9 6:54 PM HOSE HANDLER OPIATES CONFIRMATION MS, URINE STAT 06/28/2019 6:54 PM HOSE HANDLER URINALYSIS AND REFLEX TO MICROSCOPIC AND CULTURE STAT 06/28/2019 6:54 PM HOSE HANDLER URINALYSIS, MICROSCOPIC ONLY STAT 06/28/2019 6:54 PM HOSE HANDLER BLOOD GAS, ARTERIAL STAT 06/28/2019 6 :54 PM HOSE HANDLER ECG 12-LEAD Routine 06/28/2019 6:[address] CHEST ABDOMEN PELVIS W CONTRAST ED 06/28/2019 6:27 PM HOSE HANDLER CTA LOWER EXTREMITY LEFT NOT FOR ISCHEMIA ED 06/28/2019 6:[address] HEAD AND CERVICAL SPINE WO CONTRAST ED 06/28/2019 6:21 PM HOSE HANDLER ED INTUBATION Routine 06/28/2019 5:37 PM HOSE HANDLER EXTRINSIC THROMBOELASTOMETRY (EXTEM) STAT 06/28/2019 5:35 PM HOSE HANDLER THROMBOCYTE INHIBITED FIBRINOGEN (FIBTEM) STAT 06/28/2019 5:35 PM HOSE HANDLER BLOOD GAS, VENOUS STAT 06/28/2019 5:3 5 PM HOSE HANDLER POCT CREATININE - DEVICE Routine 019 5:27 PM HOSE HANDLER POCT LACTATE - DEVICE Routine 06/28/2019 5:23 PM HOSE HANDLER POCT GLUCOSE DEVICE Routine 06/28/2019 5 :18 PM HOSE HANDLER NJ INSJ NON-TUNNELED CENTRAL VENOUS CATH AGE 5 YR/> Routine 06/28/2019 5:10 PM HOSE HANDLER Type III open displaced comminuted fracture of shaft of left tibia, initial encounter DIFFERENTIAL AUTO STAT 06/28/2019 5:0 2 PM HOSE HANDLER CRITICAL RESULT CALLBACK CHEMISTRY STAT 06/28/2019 5:02 PM HOSE HANDLER VERIFY NOW ASPIRIN STAT 06/28/2019 5: 02 PM HOSE HANDLER CBC WITH AUTO DIFFERENTIAL STAT 06/28/2019 5:02 PM HOSE HANDLER TROPONIN I STAT 06/28/2019 5:02 PM HOSE HANDLER APTT STAT 06/28/2019 5:02 PM HOSE HANDLER PROTIME-INR STAT 06/28/2019 5:02 PM HOSE HANDLER TYPE AND SCREEN STAT 06/28/2019 5:02 PM HOSE HANDLER CREATINE KINASE (CK), TOTAL STAT 06/28/2019 5:02 PM HOSE HANDLER ETHANOL STAT 06/28/2019 5:02 PM HOSE HANDLER COMPREHENSIVE METABOLIC PANEL STAT 06/28/2019 5:02 PM HOSE HANDLER documented in this encounter Results * POCT glucose (07/02/2019 7:35 AM HOSE HANDLER) Glucose, POC 155 70 - 199 mg/dL [facility] Blood specimen (specimen) 07/02/2019 7:35 AM HOSE HANDLER 07/02/2019 7:35 AM HOSE HANDLER us Dean Ritter MD LAB POCT ORDERABLES - DEV ICE Final Result Performing Organization Address [facility] de Phone Number [facility] [place] [address] * POCT glucose (07/02/2019 4:08 AM HOSE HANDLER) Glucose, POC 148 70 - 199 mg/dL [facility] Blood specimen (specimen) 07/02/2019 4:08 AM HOSE HANDLER 07/02/2019 4:08 AM HOSE HANDLER Dean Ritter MD LAB POCT ORDERABLES - DEV ICE Final Result Performing Organization Address [facility] de Phone Number [facility] [place] [address] * POCT glucose (07/01/2019 11:57 PM HOSE HANDLER) Glucose, POC 119 70 - 199 mg/dL [facility] Blood specimen (specimen) 07/01/2019 11:57 PM HOSE HANDLER 07/01/2019 11:57 PM HOSE HANDLER us Dean Ritter MD LAB POCT ORDERABLES - DEV ICE Final Result Performing Organization Address [facility] de Phone Number [facility] [place] [address] * POCT glucose (07/01/2019 9:21 PM HOSE HANDLER) Glucose, POC 169 70 - 199 mg/dL [facility] Blood specimen (specimen) 07/01/2019 9:21 PM HOSE HANDLER 07/01/2019 9:21 PM HOSE HANDLER us Dean Ritter MD LAB POCT ORDERABLES - DEV ICE Final Result Performing Organization Address [facility] [place] [address] * Phosphorus (07/01/2019 9:14 PM HOSE HANDLER) Phosphorus, pl 2.7 2.3 - 4.5 mg/dL [facility] Blood specimen (specimen) 07/01/2019 9:14 PM HOSE HANDLER 07/01/2019 9:23 PM HOSE HANDLER Roxanne Gomez WAFFLE MACHINE OPERATOR LAB BLOOD ORDERABLES [place] [address] * Magnesium (07/01/2019 9:14 PM HOSE HANDLER) Magnesium 2.0 1.4 - 2.5 mg/dL [facility] Blood specimen (specimen) 07/01/2019 9:14 PM HOSE HANDLER 07/01/2019 9:23 PM HOSE HANDLER Roxanne Gomez WAFFLE MACHINE OPERATOR LAB BLOOD ORDERABLES Ellyn l Result Performing Organization Address City/[facility]/ZIP [place] [address] * (ABNORMAL) Calcium, ionized (07/01/2019 9:14 PM HOSE HANDLER) Calcium, Ionized 3.91(L) 4.50 - 5.10 mg/dL [facility] Blood specimen (specimen) 07/01/2019 9:14 PM HOSE HANDLER 07/01/2019 9:23 PM HOSE HANDLER Roxanne Gomez WAFFLE MACHINE OPERATOR LAB BLOOD ORDERABLES [place] [address] * (ABNORMAL) Basic metabolic panel (07/01/2019 9:14 PM HOSE HANDLER) Pathologist [facility] Sodium 135 135 - 145 mmol/L [facility] Potassium, pl 4.7 3.3 - 4.9 mmol/L [facility] Chloride 103 97 - 110 mmol/L [facility] CO2 24 22 - 32 mmol/L [facility] Anion gap 8 2 - 15 mmol/L [facility] BUN 12 8 - 25 mg/dL [facility] Creatinine 0.96 0.60 - 1.10 mg/dL [facility] Glucose 164 70 - 199 mg/dL [facility] Comment: Interpretive Data Fasting glucose >/= 126 [...] 2017. Calcium 7.6(L) 8.5 - 10.3 mg/dL [facility] Blood specimen (specimen) 07/01/2019 9:14 PM HOSE HANDLER 07/01/2019 9:23 PM HOSE HANDLER us Roxanne Gomez WAFFLE MACHINE OPERATOR LAB BLOOD ORDERABLES Ellyn adams Result [facility] Department [place] [address] * (ABNORMAL) CBC without differential (07/01/2019 9:14 PM HOSE HANDLER) [facility] WBC 17.4(H) 3.8 - 9.9 K/cumm [facility] Hgb 7.6(L) 11.9 - 15.5 g/dL [facility] Hct 23.6(L) 35.6 - 45.5 % [facility] Plt 174 150 - 400 K/cumm [facility] MPV 10.8 9.1 - 12.3 fL [facility] RBC 2.72(L) 3.90 - 5.20 M/cumm [facility] MCV 86.8 81.3 - 96.4 fL [facility] MCH 27.9 27.1 - 33.3 pg [facility] MCHC 32.2(L) 32.3 - 35.7 g/dL [facility] RDW CV 17.8(H) 11.1 - 14.9 % [facility] RDW SD 55.1(H) 35.7 - 48.1 fL [facility] NRBC abs 0.18(H) 0.00 - 0.01 K/cumm [facility] Blood specimen (specimen) 07/01/2019 9:14 PM HOSE HANDLER 07/01/2019 9:33 PM HOSE HANDLER Roxanne Gomez NP LAB BLOOD ORDERABLES Ellyn l Result Performing Organization Address City/[facility]/ZIP Co de Phone Number [facility] Department [place] [address] * Infection Prevention MRSA Only (Staphylococcus aureus) Culture Nasal (07/01/2019 2:19 PM HOSE HANDLER) Pathologist [facility] Report Final Report: Negative [facility] Nasal 07/01/2019 2:19 PM HOSE HANDLER 07/01/2019 2:54 PM HOSE HANDLER Narrative [facility] - 07/02/2019 6:08 PM HOSE HANDLER Testing performed by [facility] ([phone]). us Roxanne Gomez NP LAB MICROBIOLOGY - GENERA L ORDERABLES Final Result Performing Organization Address [facility] Co de Phone Number [facility] Department [place] [employer] [place] [address] * POCT glucose (07/01/2019 7:41 AM HOSE HANDLER) Glucose, POC 156 70 - 199 mg/dL [facility] Blood specimen (specimen) 07/01/2019 7:41 AM HOSE HANDLER 07/01/2019 7:41 AM HOSE HANDLER Dean Ritter MD LAB POCT ORDERABLES - DEV ICE Final Result Performing Organization Address [facility]/State/ZIP Co de Phone Number [facility] Department [place] [address] * Critical Care (07/01/2019 7:09 AM HOSE HANDLER) Narrative Roxanne Gomez NP - 07/01/2019 7:09 AM HOSE HANDLER Roxanne Gomez NP ? 07/01/2019 ??4:13 PM [...] plan with the patient's team and other medical/security system sales consultant staff. This time was in addition [...] documenting in the medical record Roxanne Gomez WAFFLE MACHINE OPERATOR IN CLINIC/BEDSIDE ORDERAB LES Final Result * POCT glucose (06/30/2019 11:43 PM HOSE HANDLER) Glucose, POC 98 70 - 199 mg/dL [facility] Blood specimen (specimen) 06/30/2019 11:43 PM HOSE HANDLER 06/30/2019 11:43 PM HOSE HANDLER Dean Ritter MD LAB POCT ORDERABLES - DEV ICE Final Result Performing Organization Address City/[facility]/ZIP Co de Phone Number [facility] Department [place] [address] * Magnesium (06/30/2019 10:06 PM HOSE HANDLER) Pathologist [facility] Magnesium 2.1 1.4 - 2.5 mg/dL [facility] Blood specimen (specimen) 06/30/2019 10:06 PM HOSE HANDLER 06/30/2019 10:18 PM HOSE HANDLER Dean Ritter MD LAB BLOOD ORDERABLES Ellyn l Result Performing Organization Address [facility] Co de Phone Number [facility] [place] [employer] [place] [address] * (ABNORMAL) Blood gas, arterial (06/30/2019 10:06 PM HOSE HANDLER) [facility] pH, Art 7.40 7.35 - 7.45 [facility] PCO2, Arterial 42 35 - 45 mmHg [facility] PO2, Arterial 107 83 - 108 mmHg [facility] HCO3 Art (Calculated) 27 20 - 30 mmol/L [facility] BE, art 1 mmol/L [facility] Comment: Interpretive Data No Reference Range Established Current Interpretive Data was last revised on 2017 O2 Sat Art (Measured) 98(H) 90 - 95 % [facility] Blood specimen (specimen) 06/30/2019 10:06 PM HOSE HANDLER 06/30/2019 10:17 PM HOSE HANDLER us Roxanne Gomez NP LAB BLOOD ORDERABLES Ellyn l Result Performing Organization Address [facility] Co de Phone Number [facility] [place] [address] * (ABNORMAL) Basic metabolic panel (06/30/2019 10:06 PM HOSE HANDLER) Pathologist [facility] Sodium 139 135 - 145 mmol/L [facility] Potassium, pl 4.2 3.3 - 4.9 mmol/L [facility] Chloride 105 97 - 110 mmol/L [facility] CO2 26 22 - 32 mmol/L [facility] Anion gap 8 2 - 15 mmol/L [facility] BUN 14 8 - 25 mg/dL [facility] Creatinine 0.95 0.60 - 1.10 mg/dL [facility] Glucose 130 70 - 199 mg/dL [facility] Comment: Interpretive Data Fasting glucose >/= 126 [...] 2017. Calcium 7.9(L) 8.5 - 10.3 mg/dL [facility] Blood specimen (specimen) 06/30/2019 10:06 PM HOSE HANDLER 06/30/2019 10:18 PM HOSE HANDLER us Roxanne Gomez WAFFLE MACHINE OPERATOR LAB BLOOD ORDERABLES Ellyn adams Result [facility] Department [place] [address] * (ABNORMAL) CBC without differential (06/30/2019 10:06 PM HOSE HANDLER) WBC 16.5(H) 3.8 - 9.9 K/cumm [facility] Hgb 8.2(L) 11.9 - 15.5 g/dL [facility] Hct 25.5(L) 35.6 - 45.5 % [facility] Plt 166 150 - 400 K/cumm [facility] MPV 11.6 9.1 - 12.3 fL [facility] RBC 2.97(L) 3.90 - 5.20 M/cumm [facility] MCV 85.9 81.3 - 96.4 fL [facility] MCH 27.6 27.1 - 33.3 pg [facility] MCHC 32.2(L) 32.3 - 35.7 g/dL [facility] RDW CV 17.7(H) 11.1 - 14.9 % [facility] RDW SD 54.6(H) 35.7 - 48.1 fL [facility] NRBC abs 0.23(H) 0.00 - 0.01 K/cumm [facility] Blood specimen (specimen) 06/30/2019 10:06 PM HOSE HANDLER 06/30/2019 10:33 PM HOSE HANDLER us Roxanne Gomez WAFFLE MACHINE OPERATOR LAB BLOOD ORDERABLES Ellyn adams Result Performing Organization Address City/State/[facility] Co de Phone Number [facility] Department [place] [address] * Critical Care (06/30/2019 7:50 PM HOSE HANDLER) Narrative Jameson Skinner MD - 06/30/2019 7:50 PM HOSE HANDLER JOSE CRUZ [place] ? 07/01/2019 ??5:31 AM [...] plan with the ICU team and other medical/security system sales consultant staff, making frequent assessments and decisions [...] View - in AM (06/30/2019 7:01 PM HOSE HANDLER) Anatomical Region Laterality Modality Body, Chest N/A Computed Radiogr aphy 07/01/2019 9:40 AM HOSE HANDLER Impressions 07/01/2019 9:41 AM HOSE HANDLER Prior comparison 06/29/2019. ??There is an endotracheal tube terminating 1.6 cm above the jesús. ??There is a nasogastric tube with the tip terminating below the diaphragm and off the [id number]-[id number]. There are small lung volumes. ??Patchy areas [...] Jason Tellez M.D. Narrative 07/01/2019 9:41 AM HOSE HANDLER EXAMINATION: 1 view chest radiograph Procedure Note Jason Tellez MD - 07/01/2019 EXAMINATION: 1 view chest radiograph IMPRESSION: Prior comparison 06/29/2019. There is an endotracheal tube terminating 1.6 cm above the jesús. There is a nasogastric tube with the tip terminating below the diaphragm and off the [id number]. There are small lung volumes. Patchy areas [...] Electronically signed by: Jason Tellez M.D. Roxanne Gomze WAFFLE MACHINE OPERATOR IMG XR PROCEDURES Final R esult * Lactate, whole blood (06/30/2019 4:23 PM HOSE HANDLER) Lactate, bld 1.8 0.7 - 2.0 mmol/L [facility] Blood specimen (specimen) 06/30/2019 4:23 PM HOSE HANDLER 06/30/2019 4:31 PM HOSE HANDLER Hilda Lord WAFFLE MACHINE OPERATOR LAB BLOOD ORDERABLES Final Re sult Performing Organization Address [facility] de Phone Number [facility] Department [place] [address] * Protime-INR (06/30/2019 4:21 PM HOSE HANDLER) PT 12.8 8.6 - 13.0 sec [facility] INR 1.2 0.8 - 1.2 [facility] Comment: Interpretive data Oral anticoagulant therapeutic ranges: Venous thromboembolism prophylaxis or treatment: 2.0-3.0 CARDIOLOGY Standard range: 2.0-3.0 High-intensity range: 2.5-3.5 Refer to indication-specific guidelines for appropriate target ranges for prosthetic heart valve replacement. Current interpretive data was last revised on 2019. Blood specimen (specimen) 06/30/2019 4:21 PM HOSE HANDLER 06/30/2019 4:31 PM HOSE HANDLER Roxanne Gomez WAFFLE MACHINE OPERATOR LAB BLOOD ORDERABLES Ellyn l Result Performing Organization Address [facility] de Phone Number [facility] Department [place] [address] * (ABNORMAL) aPTT (06/30/2019 4:21 PM HOSE HANDLER) [facility] aPTT 22(L) 25 - 37 sec [facility] Comment: Interpretive data Heparin therapeutic range: 60-90 seconds Range based on correlation with therapeutic heparin activity range of 0.3-0.7 units/ml. Current interpretive data was last revised on 2019. Blood specimen (specimen) 06/30/2019 4:21 PM HOSE HANDLER 06/30/2019 4:31 PM HOSE HANDLER us Roxanne Gomez WAFFLE MACHINE OPERATOR LAB BLOOD ORDERABLES Ellyn adams Result [facility] Department [place] [address] * (ABNORMAL) CBC without differential (06/30/2019 4:21 PM HOSE HANDLER) [facility] WBC 17.5(H) 3.8 - 9.9 K/cumm [facility] Hgb 9.0(L) 11.9 - 15.5 g/dL [facility] Hct 27.7(L) 35.6 - 45.5 % [facility] Plt 189 150 - 400 K/cumm [facility] MPV 11.0 9.1 - 12.3 fL [facility] RBC 3.16(L) 3.90 - 5.20 M/cumm [facility] MCV 87.7 81.3 - 96.4 fL [facility] MCH 28.5 27.1 - 33.3 pg [facility] MCHC 32.5 32.3 - 35.7 g/dL [facility] RDW CV 18.0(H) 11.1 - 14.9 % [facility] RDW SD 57.1(H) 35.7 - 48.1 fL [facility] NRBC abs 0.13(H) 0.00 - 0.01 K/cumm [facility] Blood specimen (specimen) 06/30/2019 4:21 PM HOSE HANDLER 06/30/2019 4:31 PM HOSE HANDLER Roxanne Gomez NP LAB BLOOD ORDERABLES Ellyn l Result Performing Organization Address [facility] Co de Phone Number [facility] Department [place] [address] * FL Fluoroscopy < 1 Hour (06/30/2019 2:51 PM HOSE HANDLER) Narrative [facility] - 06/30/2019 2:52 PM HOSE HANDLER The images from this study are not interpreted by Radiology. ??Please refer to the physician's procedure / OR operative note. Jacobo Shoemaker MD IMG FLUOROSCOPY PROCEDURES Final Result Performing Organization Address [facility] Co de Phone Number [facility] * Transfuse RBC (06/30/2019 2:16 PM HOSE HANDLER) Blood specimen (specimen) Rui Mike MD BLOOD TRANSFUSION ORDERABLES F inal Result Performing Organization Address [facility] Co de Phone Number [facility] Department [place] [address] * (ABNORMAL) POCT platelet count and hematocrit (06/30/2019 1:28 PM HOSE HANDLER) Hematocrit POC 23.1(L) 36.1 - 44.3 % [facility] Platelet POC 188 140 - 440 K/cumm [facility] Blood specimen (specimen) 06/30/2019 1:28 PM HOSE HANDLER 06/30/2019 1:28 PM HOSE HANDLER Dean Ritter MD LAB POCT ORDERABLES - DEV ICE Final Result Performing Organization Address [facility] Co de Phone Number [facility] Department [place] [address] * (ABNORMAL) POC Blood Gas and Chemistries, Venous - (06/30/2019 1:27 PM HOSE HANDLER) pH, Rj POC 7.36 7.32 - 7.43 [facility] pCO2, rj POC 47 40 - 50 mmHg [facility] pO2, rj POC 43 mmHg [facility] Na, POC 138 135 - 145 mmol/L [facility] K POC 3.8 3.3 - 4.9 mmol/L [facility] Cl, POC 107 97 - 110 mmol/L [facility] Ionized Ca, POC 5.20(H) 4.50 - 5.10 mg/dL [facility] Glucose, POC 132 70 - 199 mg/dL [facility] Lactate, POC 1.4 0.7 - 2.2 mmol/L [facility] O2 Sat, Rj POC (Gorge) 74 % [facility] Base excess, POC 0.6 mmol/L [facility] HCO3, Rj POC 27 20 - 30 mmol/L [facility] Hct, POC 23.0(L) 36.3 - 45.3 % [facility] Total Hb, POC 7.7(L) 11.9 - 15.5 g/dL [facility] O2 Sat, Rj POC (Calc) 76 % [facility] Blood specimen (specimen) 06/30/2019 1:27 PM HOSE HANDLER 06/30/2019 1:27 PM HOSE HANDLER us Dean Ritter MD LAB POCT ORDERABLES - DEV ICE Final Result [facility] Department [place] [address] * (ABNORMAL) Differential, auto (06/30/2019 11:27 AM HOSE HANDLER) Neutrophil abs 8.8(H) 1.7 - 6.5 K/cumm [facility] Imm gran abs 0.2(H) 0.0 - 0.1 K/cumm [facility] Lymphocyte abs 2.9 0.8 - 3.3 K/cumm [facility] Monocyte abs 1.8(H) 0.2 - 0.8 K/cumm [facility] Eosinophil abs 0.1 0.0 - 0.5 K/cumm [facility] Basophil abs 0.0 0.0 - 0.1 K/cumm [facility] Neutrophil pct 63.4 % [facility] Comment: Interpretive Data Percent cell count reference ranges are not reported, since discordance with absolute values may lead to misinterpretation of CBC data. Current Interpretive Data was last revised on 2017. Imm gran pct 1.5 % [facility] Comment: Interpretive Data Percent cell count reference ranges are not reported, since discordance with absolute values may lead to misinterpretation of CBC data. Current Interpretive Data was last revised on 2017. Lymphocyte pct 20.8 % [facility] Comment: Interpretive Data Percent cell count reference ranges are not reported, since discordance with absolute values may lead to misinterpretation of CBC data. Current Interpretive Data was last revised on 2017. Monocyte pct 13.1 % [facility] Comment: Interpretive Data Percent cell count reference ranges are not reported, since discordance with absolute values may lead to misinterpretation of CBC data. Current Interpretive Data was last revised on 2017. Eosinophil pct 0.9 % [facility] Comment: Interpretive Data Percent cell count reference ranges are not reported, since discordance with absolute values may lead to misinterpretation of CBC data. Current Interpretive Data was last revised on 2017. Basophil pct 0.3 % [facility] Comment: Interpretive Data Percent cell count reference ranges are not reported, since discordance with absolute values may lead to misinterpretation of CBC data. Current Interpretive Data was last revised on 2017. Blood specimen (specimen) 06/30/2019 11:27 AM HOSE HANDLER 06/30/2019 11:44 AM HOSE HANDLER us Hilda Lord NP LAB BLOOD ORDERABLES Final Re sult [facility] Department [place] [address] * (ABNORMAL) CBC with auto differential (06/30/2019 11:27 AM HOSE HANDLER) WBC 14.0(H) 3.8 - 9.9 K/cumm [facility] Hgb 7.7(L) 11.9 - 15.5 g/dL [facility] Hct 24.0(L) 35.6 - 45.5 % [facility] Plt 166 150 - 400 K/cumm [facility] MPV 11.7 9.1 - 12.3 fL [facility] RBC 2.78(L) 3.90 - 5.20 M/cumm [facility] MCV 86.3 81.3 - 96.4 fL [facility] MCH 27.7 27.1 - 33.3 pg [facility] MCHC 32.1(L) 32.3 - 35.7 g/dL [facility] RDW CV 18.5(H) 11.1 - 14.9 % [facility] RDW SD 57.6(H) 35.7 - 48.1 fL [facility] NRBC abs 0.07(H) 0.00 - 0.01 K/cumm [facility] Blood specimen (specimen) 06/30/2019 11:27 AM HOSE HANDLER 06/30/2019 11:44 AM HOSE HANDLER Hilda Lord NP LAB BLOOD ORDERABLES Final Re sult [facility] Department [place] [address] * Prepare RBC: 2 Units (06/30/2019 10:49 AM HOSE HANDLER) [facility] Product code [id number] [facility] Unit Number [id number] [facility] Product Blood Type APOS [facility] Dispense Status RETURNED [facility] Product code [id number] [facility] Unit Number [id number] [facility] Product Blood Type APOS [facility] Dispense Status PRESUMED TRANSFUSED [facility] Blood specimen (specimen) 06/30/2019 10:49 AM HOSE HANDLER 06/30/2019 10:49 AM HOSE HANDLER Narrative [facility] - 07/01/2019 9:12 AM HOSE HANDLER Are special requirements needed? (all products are leukoreduced)->No Date required:-[id number] LRRBC # of Vmast-2-Ufeax Reasons:-Intra-op transfusion} Rui Mike MD BLOOD BANK PRODUCT ORDERABLES Final Result Performing Organization Address [facility] de Phone Number [facility] [place] [address] * POCT glucose (06/30/2019 8:07 AM HOSE HANDLER) Glucose, POC 140 70 - 199 mg/dL [facility] Blood specimen (specimen) 06/30/2019 8:07 AM HOSE HANDLER 06/30/2019 8:07 AM HOSE HANDLER Dean Ritter MD LAB POCT ORDERABLES - DEV ICE Final Result Performing Organization Address [facility] de Phone Number [facility] [place] [employer] [place] [address] * Critical Care (06/30/2019 6:51 AM HOSE HANDLER) Narrative Roxanne Gomez NP - 06/30/2019 6:51 AM HOSE HANDLER Roxanne Gomez NP ? 06/30/2019 ??5:18 PM [...] plan with the patient's team and other medical/security system sales consultant staff. This time was in addition [...] documenting in the medical record us Roxanne Gomze NP IN CLINIC/BEDSIDE ORDERAB LES Final Result * (ABNORMAL) CBC without differential (06/30/2019 4:35 AM HOSE HANDLER) WBC 17.1(H) 3.8 - 9.9 K/cumm [facility] Hgb 8.0(L) 11.9 - 15.5 g/dL [facility] Hct 24.2(L) 35.6 - 45.5 % [facility] Plt 188 150 - 400 K/cumm [facility] MPV 11.4 9.1 - 12.3 fL [facility] RBC 2.87(L) 3.90 - 5.20 M/cumm [facility] MCV 84.3 81.3 - 96.4 fL [facility] MCH 27.9 27.1 - 33.3 pg [facility] MCHC 33.1 32.3 - 35.7 g/dL [facility] RDW CV 18.4(H) 11.1 - 14.9 % [facility] RDW SD 55.6(H) 35.7 - 48.1 fL [facility] NRBC abs 0.05(H) 0.00 - 0.01 K/cumm [facility] Blood specimen (specimen) 06/30/2019 4:35 AM HOSE HANDLER 06/30/2019 4:52 AM HOSE HANDLER us Ina BILLINGSLEY LAB BLOOD ORDERABLES Ellyn adams Result [facility] Department [place] [address] * POCT glucose (06/30/2019 3:36 AM HOSE HANDLER) Glucose, POC 126 70 - 199 mg/dL [facility] Blood specimen (specimen) 06/30/2019 3:36 AM HOSE HANDLER 06/30/2019 3:36 AM HOSE HANDLER Result [facility] Dean Ritter MD LAB POCT ORDERABLES - DEV ICE Final Result Performing Organization Address [facility]/ZIP Co de Phone Number [facility] Department [place] [employer] [place] [address] * Transfuse RBC (06/30/2019 3:07 AM HOSE HANDLER) Blood specimen (specimen) Result [facility] Ina BILLINGSLEY BLOOD TRANSFUSION ORDERAB LES Final Result Performing Organization Address [facility] Co de Phone Number [facility] [place] [place] [address] * Transfuse RBC: 1 Units (06/30/2019 3:07 AM HOSE HANDLER) Blood specimen (specimen) Result [facility] Ina BILLINGSLEY BLOOD TRANSFUSION ORDERAB LES Final Result * Prepare RBC: 1 Units (06/30/2019 12:45 AM HOSE HANDLER) Product code [id number] [facility] Unit Number [id number] [facility] Product Blood Type APOS [facility] Dispense Status PRESUMED TRANSFUSED [facility] Blood specimen (specimen) 06/30/2019 12:45 AM HOSE HANDLER 06/30/2019 12:45 AM HOSE HANDLER Narrative [facility] - 07/01/2019 12:49 AM HOSE HANDLER Are special requirements needed? (all products are leukoreduced)->No Date required:-[id number] LRRBC # of Mkhft-3-Dmfef Reasons:-Hgb <7 g/dL} Result [facility] Ina BILLINGSLEY BLOOD BANK PRODUCT ORDERA BLES Final Result Performing Organization Address [facility] Co de Phone Number [facility] [place] [address] * POCT glucose (06/29/2019 11:46 PM HOSE HANDLER) [facility] Glucose, POC 136 70 - 199 mg/dL [facility] Blood specimen (specimen) 06/29/2019 11:46 PM HOSE HANDLER 06/29/2019 11:46 PM HOSE HANDLER us Dean Ritter MD LAB POCT ORDERABLES - DEV ICE Final Result Performing Organization Address [facility] Co de Phone Number [facility] Department [place] [employer] [place] [address] * (ABNORMAL) CBC without differential (06/29/2019 11:23 PM HOSE HANDLER) [facility] WBC 14.7(H) 3.8 - 9.9 K/cumm [facility] Hgb 6.5(L) 11.9 - 15.5 g/dL [facility] Hct 20.2(L) 35.6 - 45.5 % [facility] Plt 173 150 - 400 K/cumm [facility] MPV 11.4 9.1 - 12.3 fL [facility] RBC 2.39(L) 3.90 - 5.20 M/cumm [facility] MCV 84.5 81.3 - 96.4 fL [facility] MCH 27.2 27.1 - 33.3 pg [facility] MCHC 32.2(L) 32.3 - 35.7 g/dL [facility] RDW CV 20.6(H) 11.1 - 14.9 % [facility] RDW SD 63.5(H) 35.7 - 48.1 fL [facility] NRBC abs 0.04(H) 0.00 - 0.01 K/cumm [facility] Blood specimen (specimen) 06/29/2019 11:23 PM HOSE HANDLER 06/29/2019 11:40 PM HOSE HANDLER us Ian BILLINGSLEY LAB BLOOD ORDERABLES Ellyn l Result Performing Organization Address City/[facility]/ZIP Co de Phone Number [facility] Department [place] [address] * Phosphorus (06/29/2019 10:35 PM HOSE HANDLER) Phosphorus, pl 3.5 2.3 - 4.5 mg/dL [facility] Blood specimen (specimen) 06/29/2019 10:35 PM HOSE HANDLER 06/29/2019 10:51 PM HOSE HANDLER us Dean Ritter MD LAB BLOOD ORDERABLES Ellyn bryan Result [facility] One [facility] [place] [address] * (ABNORMAL) Differential, auto (06/29/2019 10:35 PM HOSE HANDLER) Pathologist [facility] Neutrophil abs 8.8(H) 1.7 - 6.5 K/cumm [facility] Imm gran abs 0.2(H) 0.0 - 0.1 K/cumm [facility] Lymphocyte abs 4.7(H) 0.8 - 3.3 K/cumm [facility] Monocyte abs 1.6(H) 0.2 - 0.8 K/cumm [facility] Eosinophil abs 0.1 0.0 - 0.5 K/cumm [facility] Basophil abs 0.0 0.0 - 0.1 K/cumm [facility] Neutrophil pct 57.3 % [facility] Comment: Interpretive Data Percent cell count reference ranges are not reported, since discordance with absolute values may lead to misinterpretation of CBC data. Current Interpretive Data was last revised on 2017. Imm gran pct 1.2 % [facility] Comment: Interpretive Data Percent cell count reference ranges are not reported, since discordance with absolute values may lead to misinterpretation of CBC data. Current Interpretive Data was last revised on 2017. Lymphocyte pct 30.8 % [facility] Comment: Interpretive Data Percent cell count reference ranges are not reported, since discordance with absolute values may lead to misinterpretation of CBC data. Current Interpretive Data was last revised on 2017. Monocyte pct 10.1 % [facility] Comment: Interpretive Data Percent cell count reference ranges are not reported, since discordance with absolute values may lead to misinterpretation of CBC data. Current Interpretive Data was last revised on 2017. Eosinophil pct 0.4 % [facility] Comment: Interpretive Data Percent cell count reference ranges are not reported, since discordance with absolute values may lead to misinterpretation of CBC data. Current Interpretive Data was last revised on 2017. Basophil pct 0.2 % [facility] Comment: Interpretive Data Percent cell count reference ranges are not reported, since discordance with absolute values may lead to misinterpretation of CBC data. Current Interpretive Data was last revised on 2017. Blood specimen (specimen) 06/29/2019 10:35 PM HOSE HANDLER 06/29/2019 10:50 PM HOSE HANDLER Hilda Lord NP LAB BLOOD ORDERABLES Final Re sult Performing Organization Address [facility] Co de Phone Number [facility] Department [place] [address] * Magnesium (06/29/2019 10:35 PM HOSE HANDLER) [facility] Magnesium 1.7 1.4 - 2.5 mg/dL [facility] Blood specimen (specimen) 06/29/2019 10:35 PM HOSE HANDLER 06/29/2019 10:51 PM HOSE HANDLER Hilda Lord NP LAB BLOOD ORDERABLES Final Re sult Performing Organization Address [facility] de Phone Number [facility] Department [place] [address] * (ABNORMAL) Basic metabolic panel (06/29/2019 10:35 PM HOSE HANDLER) Pathologist [facility] Sodium 139 135 - 145 mmol/L [facility] Potassium, pl 4.6 3.3 - 4.9 mmol/L [facility] Chloride 105 97 - 110 mmol/L [facility] CO2 30 22 - 32 mmol/L [facility] Anion gap 4 2 - 15 mmol/L [facility] BUN 22 8 - 25 mg/dL [facility] Creatinine 1.14(H) 0.60 - 1.10 mg/dL [facility] Glucose 145 70 - 199 mg/dL [facility] Comment: Interpretive Data Fasting glucose >/= 126 [...] 2017. Calcium 8.3(L) 8.5 - 10.3 mg/dL [facility] Blood specimen (specimen) 06/29/2019 10:35 PM HOSE HANDLER 06/29/2019 10:51 PM HOSE HANDLER us Hilda Lord WAFFLE MACHINE OPERATOR LAB BLOOD ORDERABLES Final Re sult [facility] Department [place] [address] * (ABNORMAL) CBC with auto differential (06/29/2019 10:35 PM HOSE HANDLER) WBC 15.3(H) 3.8 - 9.9 K/cumm [facility] Hgb 6.4(C) 11.9 - 15.5 g/dL [facility] Comment:Critical result call ed to and read back by HERMILO NGUYEN RN on 06 29 2019 at 2302 to Alexys Powers. Hct 19.9(L) 35.6 - 45.5 % [facility] Plt 178 150 - 400 K/cumm [facility] MPV 10.8 9.1 - 12.3 fL [facility] RBC 2.36(L) 3.90 - 5.20 M/cumm [facility] MCV 84.3 81.3 - 96.4 fL [facility] MCH 27.1 27.1 - 33.3 pg [facility] MCHC 32.2(L) 32.3 - 35.7 g/dL [facility] RDW CV 20.6(H) 11.1 - 14.9 % [facility] RDW SD 62.4(H) 35.7 - 48.1 fL [facility] NRBC abs 0.05(H) 0.00 - 0.01 K/cumm [facility] Blood specimen (specimen) 06/29/2019 10:35 PM HOSE HANDLER 06/29/2019 10:50 PM HOSE HANDLER Hilda Lord WAFFLE MACHINE OPERATOR LAB BLOOD ORDERABLES Final Re sult Performing Organization Address City/[facility]/ZIP Co de Phone Number [facility] [place] [employer] [place] [address] * POCT glucose (06/29/2019 9:17 PM HOSE HANDLER) Glucose, POC 128 70 - 199 mg/dL [facility] Blood specimen (specimen) 06/29/2019 9:17 PM HOSE HANDLER 06/29/2019 9:17 PM HOSE HANDLER Dean Ritter MD LAB POCT ORDERABLES - DEV ICE Final Result Performing Organization Address [facility] Co de Phone Number [facility] [place] [address] * POCT glucose (06/29/2019 7:54 PM HOSE HANDLER) Glucose, POC 144 70 - 199 mg/dL [facility] Blood specimen (specimen) 06/29/2019 7:54 PM HOSE HANDLER 06/29/2019 7:54 PM HOSE HANDLER Dean Ritter MD LAB POCT ORDERABLES - DEV ICE Final Result Performing Organization Address City/[facility]/ZIP Co de Phone Number [facility] [place] [address] * Critical Care (06/29/2019 7:35 PM HOSE HANDLER) Narrative Ina Russo MD - 06/29/2019 7:35 PM HOSE HANDLER JOSE CRUZ [place] ? 06/30/2019 ??7:06 AM [...] plan with the ICU team and other medical/security system sales consultant staff, making frequent assessments and decisions [...] blood products ?? Empiric broad coverage antibiotics us Ina BILLINGSLEY IN CLINIC/BEDSIDE ORDERAB LES Final Result * POCT glucose (06/29/2019 7:13 PM HOSE HANDLER) Glucose, POC 146 70 - 199 mg/dL [facility] Blood specimen (specimen) 06/29/2019 7:13 PM HOSE HANDLER 06/29/2019 7:13 PM HOSE HANDLER us Dean Ritter MD LAB POCT ORDERABLES - DEV ICE Final Result [facility] Department [place] [address] * XR Chest 1 View (06/29/2019 6:40 PM HOSE HANDLER) Anatomical Region Laterality Modality Body, Chest N/A Computed Radiogr aphy 06/30/2019 8:40 AM HOSE HANDLER Impressions 06/30/2019 8:41 AM HOSE HANDLER Comparison is made chest radiograph dated 06/29/2019 [...] Radha Jay M.D. Narrative 06/30/2019 8:41 AM HOSE HANDLER EXAMINATION: 1 view chest radiograph Procedure Note [...] it. Electronically signed by: Radha Jay M.D. us Hilda Lord WAFFLE MACHINE OPERATOR IMG XR PROCEDURES Final Resul t * POCT glucose (06/29/2019 5:45 PM HOSE HANDLER) Glucose, POC 133 70 - 199 mg/dL [facility] Blood specimen (specimen) 06/29/2019 5:45 PM HOSE HANDLER 06/29/2019 5:45 PM HOSE HANDLER Result [facility] Dean Ritter MD LAB POCT ORDERABLES - DEV ICE Final Result Performing Organization Address [facility] de Phone Number [facility] Department [place] [address] * POCT glucose (06/29/2019 5:44 PM HOSE HANDLER) Glucose, POC 166 70 - 199 mg/dL [facility] Blood specimen (specimen) 06/29/2019 5:44 PM HOSE HANDLER 06/29/2019 5:44 PM HOSE HANDLER Result [facility] Dean Ritter MD LAB POCT ORDERABLES - DEV ICE Final Result Performing Organization Address [facility] de Phone Number [facility] Department [place] [address] * Gentamicin level, trough (06/29/2019 4:59 PM HOSE HANDLER) [facility] Gentamicin trough 1.6 0.1 - 2.0 mcg/mL [facility] Comment: Interpretive Data Therapeutic Range: ??UTI/GPC synergy: ?? 0-2 mcg/mL ??Systemic illness: ??0-2 mcg/mL ??Sepsis: ?0-2 mcg/mL UTI/GPC synergy refers to the synergistic effect of aminoglycosides with other antibiotics in treating urinary tract infections caused by gram positive cocci (e.g. Enterococcus). Current interpretive data was last revised on 05. Blood specimen (specimen) 06/29/2019 4:59 PM HOSE HANDLER 06/29/2019 5:08 PM HOSE HANDLER Result [facility] Luz Driscoll [place] LAB BLOOD ORDERABLES Final R esult Performing Organization Address City/[facility] Co de Phone Number [facility] [place] [employer] [place] [address] * POCT glucose (06/29/2019 4:58 PM HOSE HANDLER) Glucose, POC 113 70 - 199 mg/dL [facility] Blood specimen (specimen) 06/29/2019 4:58 PM HOSE HANDLER 06/29/2019 4:58 PM HOSE HANDLER Dean Ritter MD LAB POCT ORDERABLES - DEV ICE Final Result Performing Organization Address [facility] [place] [address] * (ABNORMAL) POCT glucose (06/29/2019 4:57 PM HOSE HANDLER) Glucose, POC 58(L) 70 - 199 mg/dL [facility] Blood specimen (specimen) 06/29/2019 4:57 PM HOSE HANDLER 06/29/2019 4:57 PM HOSE HANDLER us Dean Ritter MD LAB POCT ORDERABLES - DEV ICE Final Result Performing Organization Address [facility] Co de Phone Number [facility] [place] [employer] [place] [address] * POCT glucose (06/29/2019 4:00 PM HOSE HANDLER) Glucose, POC 112 70 - 199 mg/dL [facility] Blood specimen (specimen) 06/29/2019 4:00 PM HOSE HANDLER 06/29/2019 4:00 PM HOSE HANDLER us Dean Ritter MD LAB POCT ORDERABLES - DEV ICE Final Result Performing Organization Address City/[facility] Co de Phone Number [facility] [place] [employer] [place] [address] * POCT glucose (06/29/2019 1:58 PM HOSE HANDLER) Glucose, POC 121 70 - 199 mg/dL [facility] Blood specimen (specimen) 06/29/2019 1:58 PM HOSE HANDLER 06/29/2019 1:58 PM HOSE HANDLER Dean Ritter MD LAB POCT ORDERABLES - DEV ICE Final Result Performing Organization Address City/[facility]/ZIP Co de Phone Number [facility] [place] [place] [address] * POCT glucose (06/29/2019 1:15 PM HOSE HANDLER) Glucose, POC 133 70 - 199 mg/dL [facility] Blood specimen (specimen) 06/29/2019 1:15 PM HOSE HANDLER 06/29/2019 1:15 PM HOSE HANDLER Dean Ritter MD LAB POCT ORDERABLES - DEV ICE Final Result Performing Organization Address City/[facility]/ZIP Co de Phone Number [facility] [place] [employer] [place] [address] * POCT glucose (06/29/2019 12:07 PM HOSE HANDLER) Glucose, POC 138 70 - 199 mg/dL [facility] Blood specimen (specimen) 06/29/2019 12:07 PM HOSE HANDLER 06/29/2019 12:07 PM HOSE HANDLER Dean Ritter MD LAB POCT ORDERABLES - DEV ICE Final Result Performing Organization Address City/[facility] [place] [address] * POCT glucose (06/29/2019 11:13 AM HOSE HANDLER) Glucose, POC 116 70 - 199 mg/dL [facility] Blood specimen (specimen) 06/29/2019 11:13 AM HOSE HANDLER 06/29/2019 11:13 AM HOSE HANDLER Dean Ritter MD LAB POCT ORDERABLES - DEV ICE Final Result Performing Organization Address [facility] de Phone Number [facility] [place] [address] * POCT glucose (06/29/2019 10:05 AM HOSE HANDLER) Glucose, POC 113 70 - 199 mg/dL [facility] Blood specimen (specimen) 06/29/2019 10:05 AM HOSE HANDLER 06/29/2019 10:05 AM HOSE HANDLER Dean Ritter MD LAB POCT ORDERABLES - DEV ICE Final Result Performing Organization Address [facility] de Phone Number [facility] Department [place] [address] * [place] ARTL CATHJ/CANNULJ MNTR/TRANSFUSION SPX PRQ (06/29/2019 9:16 AM HOSE HANDLER) Narrative Ina Russo MD - 06/29/2019 9:16 AM HOSE HANDLER Ina Russo MD ? 06/30/2019 ??5:08 AM Arterial Line Insertion Date/Time: 06/29/2019 9:17 AM Performed by: Denis Copeland MD Authorized by: Denis Copeland MD [place] Protocol: RN Notified of Procedure: yes ?? [...] matched to patient identification: n/a ?? Responsible green party for transporting specimen(s) to lab determined: n/a ?? Denis Copeland MD IV THERAPY ORDERABLES Ellyn l Result * POCT glucose (06/29/2019 9:06 AM HOSE HANDLER) Glucose, POC 130 70 - 199 mg/dL [facility] Blood specimen (specimen) 06/29/2019 9:06 AM HOSE HANDLER 06/29/2019 9:06 AM HOSE HANDLER Dean Ritter MD LAB POCT ORDERABLES - DEV ICE Final Result [facility] Department [place] [address] * POCT glucose (06/29/2019 8:05 AM HOSE HANDLER) Glucose, POC 134 70 - 199 mg/dL [facility] Blood specimen (specimen) 06/29/2019 8:05 AM HOSE HANDLER 06/29/2019 8:05 AM HOSE HANDLER us Dean Ritter MD LAB POCT ORDERABLES - DEV ICE Final Result [facility] Department [place] [address] * Critical Care (06/29/2019 7:33 AM HOSE HANDLER) Narrative Glory Arndt MD - 06/29/2019 7:33 AM HOSE HANDLER Luz Driscoll NP ? 06/29/2019 ??4:19 PM [...] plan with the ICU team and other medical/security system sales consultant staff, making frequent assessments and decisions [...] spent time documenting in the medical record Luz Ella Yamila DNP IN CLINIC/BEDSIDE ORDERABLES Final Result * POCT glucose (06/29/2019 7:02 AM HOSE HANDLER) Glucose, POC 169 70 - 199 mg/dL [facility] Blood specimen (specimen) 06/29/2019 7:02 AM HOSE HANDLER 06/29/2019 7:02 AM HOSE HANDLER Dean Ritter MD LAB POCT ORDERABLES - DEV ICE Final Result [facility] Department [place] [place] [address] * POCT glucose (06/29/2019 6:15 AM HOSE HANDLER) Glucose, POC 170 70 - 199 mg/dL [facility] Blood specimen (specimen) 06/29/2019 6:15 AM HOSE HANDLER 06/29/2019 6:15 AM HOSE HANDLER Dean Ritter MD LAB POCT ORDERABLES - DEV ICE Final Result Performing Organization Address City/[facility]/ZIP Co de Phone Number [facility] [place] [place] [address] * (ABNORMAL) Differential, auto (06/29/2019 5:07 AM HOSE HANDLER) Neutrophil abs 15.2(H) 1.7 - 6.5 K/cumm [facility] Imm gran abs 0.4(H) 0.0 - 0.1 K/cumm [facility] Lymphocyte abs 3.5(H) 0.8 - 3.3 K/cumm [facility] Monocyte abs 1.8(H) 0.2 - 0.8 K/cumm [facility] Eosinophil abs 0.0 0.0 - 0.5 K/cumm [facility] Basophil abs 0.0 0.0 - 0.1 K/cumm [facility] Neutrophil pct 72.7 % [facility] Comment: Interpretive Data Percent cell count reference ranges are not reported, since discordance with absolute values may lead to misinterpretation of CBC data. Current Interpretive Data was last revised on 2017. Imm gran pct 2.1 % [facility] Comment: Interpretive Data Percent cell count reference ranges are not reported, since discordance with absolute values may lead to misinterpretation of CBC data. Current Interpretive Data was last revised on 2017. Lymphocyte pct 16.5 % [facility] Comment: Interpretive Data Percent cell count reference ranges are not reported, since discordance with absolute values may lead to misinterpretation of CBC data. Current Interpretive Data was last revised on 2017. Monocyte pct 8.4 % [facility] Comment: Interpretive Data Percent cell count reference ranges are not reported, since discordance with absolute values may lead to misinterpretation of CBC data. Current Interpretive Data was last revised on 2017. Eosinophil pct 0.1 % [facility] Comment: Interpretive Data Percent cell count reference ranges are not reported, since discordance with absolute values may lead to misinterpretation of CBC data. Current Interpretive Data was last revised on 2017. Basophil pct 0.2 % [facility] Comment: Interpretive Data Percent cell count reference ranges are not reported, since discordance with absolute values may lead to misinterpretation of CBC data. Current Interpretive Data was last revised on 2017. Blood specimen (specimen) 06/29/2019 5:07 AM HOSE HANDLER 06/29/2019 5:27 AM HOSE HANDLER Brittany Serrano WAFFLE MACHINE OPERATOR LAB BLOOD ORDERABLES Final Res ult [facility] Department [place] [address] * (ABNORMAL) Lactate, whole blood (06/29/2019 5:07 AM HOSE HANDLER) Lactate, bld 3.9(H) 0.7 - 2.0 mmol/L [facility] Blood specimen (specimen) 06/29/2019 5:07 AM HOSE HANDLER 06/29/2019 5:25 AM HOSE HANDLER Brittany Serrano WAFFLE MACHINE OPERATOR LAB BLOOD ORDERABLES Final Res ult [facility] Department [place] [address] * (ABNORMAL) CBC with auto differential (06/29/2019 5:07 AM HOSE HANDLER) WBC 21.0(H) 3.8 - 9.9 K/cumm [facility] Hgb 7.8(L) 11.9 - 15.5 g/dL [facility] Hct 24.5(L) 35.6 - 45.5 % [facility] Plt 249 150 - 400 K/cumm [facility] MPV 11.4 9.1 - 12.3 fL [facility] RBC 2.88(L) 3.90 - 5.20 M/cumm [facility] MCV 85.1 81.3 - 96.4 fL [facility] MCH 27.1 27.1 - 33.3 pg [facility] MCHC 31.8(L) 32.3 - 35.7 g/dL [facility] RDW CV 20.4(H) 11.1 - 14.9 % [facility] RDW SD 61.4(H) 35.7 - 48.1 fL [facility] NRBC abs 0.05(H) 0.00 - 0.01 K/cumm [facility] Blood specimen (specimen) 06/29/2019 5:07 AM HOSE HANDLER 06/29/2019 5:27 AM HOSE HANDLER Brittany Serrano WAFFLE MACHINE OPERATOR LAB BLOOD ORDERABLES Final Res ult [facility] Department [place] [address] * POCT glucose (06/29/2019 5:04 AM HOSE HANDLER) Glucose, POC 166 70 - 199 mg/dL [facility] Blood specimen (specimen) 06/29/2019 5:04 AM HOSE HANDLER 06/29/2019 5:04 AM HOSE HANDLER us Dean Ritter MD LAB POCT ORDERABLES - DEV ICE Final Result Performing Organization Address [facility] de Phone Number [facility] [place] [employer] [place] [address] * POCT glucose (06/29/2019 3:57 AM HOSE HANDLER) Glucose, POC 187 70 - 199 mg/dL [facility] Blood specimen (specimen) 06/29/2019 3:57 AM HOSE HANDLER 06/29/2019 3:57 AM HOSE HANDLER us Dean Ritter MD LAB POCT ORDERABLES - DEV ICE Final Result Performing Organization Address [facility] de Phone Number [facility] Department [place] [address] * POCT glucose (06/29/2019 3:01 AM HOSE HANDLER) Glucose, POC 192 70 - 199 mg/dL [facility] Blood specimen (specimen) 06/29/2019 3:01 AM HOSE HANDLER 06/29/2019 3:01 AM HOSE HANDLER us Dean Ritter MD LAB POCT ORDERABLES - DEV ICE Final Result Performing Organization Address [facility] [place] [address] * POCT glucose (06/29/2019 1:54 AM HOSE HANDLER) Glucose, POC 194 70 - 199 mg/dL [facility] Blood specimen (specimen) 06/29/2019 1:54 AM HOSE HANDLER 06/29/2019 1:54 AM HOSE HANDLER us Dean Ritter MD LAB POCT ORDERABLES - DEV ICE Final Result [facility] [place] [address] * (ABNORMAL) POCT glucose (06/29/2019 1:16 AM HOSE HANDLER) Glucose, POC 205(H) 70 - 199 mg/dL [facility] Blood specimen (specimen) 06/29/2019 1:16 AM HOSE HANDLER 06/29/2019 1:16 AM HOSE HANDLER us Dean Ritter MD LAB POCT ORDERABLES - DEV ICE Final Result Performing Organization Address [facility] Co de Phone Number [facility] [place] [address] * XR Chest 1 View (06/29/2019 12:33 AM HOSE HANDLER) Anatomical Region Laterality Modality Body, Chest N/A Computed Radiogr aphy 06/29/2019 10:4 1 AM HOSE HANDLER Impressions 06/29/2019 11:10 AM HOSE HANDLER Comparison is made to 06/28/2018 6:43 PM. [...] Jason Tellez M.D. Narrative 06/29/2019 11:10 AM HOSE HANDLER EXAMINATION: 1 view chest radiograph Procedure Note [...] it. Electronically signed by: Jason Tellez M.D. Birttany Serrano WAFFLE MACHINE OPERATOR IMG XR PROCEDURES Final Result * POCT glucose (06/29/2019 12:02 AM HOSE HANDLER) Glucose, POC 195 70 - 199 mg/dL [facility] Blood specimen (specimen) 06/29/2019 12:02 AM HOSE HANDLER 06/29/2019 12:02 AM HOSE HANDLER Dean Ritter MD LAB POCT ORDERABLES - DEV ICE Final Result Performing Organization Address [facility] Co de Phone Number [facility] Department [place] [address] * (ABNORMAL) Valproic acid level, total (06/29/2019 12:00 AM HOSE HANDLER) Pathologist [facility] Valproic Acid <15.0(L) 50.0 - 100.0 mcg/mL [facility] Comment: Interpretive Data Therapeutic or toxic effects of anticonvulsant drugs may occur at different concentrations in different patients and the correlation between dose and clinical effect must be evaluated individually. Current interpretative data was last revised on 13. Blood specimen (specimen) 06/29/2019 06/29/2019 12:26 AM HOSE HANDLER Dean Ritter MD LAB BLOOD ORDERABLES Ellyn l Result Performing Organization Address [facility] Co de Phone Number [facility] Department [place] [address] * (ABNORMAL) Differential, auto (06/29/2019 12:00 AM HOSE HANDLER) Neutrophil abs 16.5(H) 1.7 - 6.5 K/cumm [facility] Imm gran abs 0.6(H) 0.0 - 0.1 K/cumm [facility] Lymphocyte abs 2.7 0.8 - 3.3 K/cumm [facility] Monocyte abs 1.4(H) 0.2 - 0.8 K/cumm [facility] Eosinophil abs 0.1 0.0 - 0.5 K/cumm [facility] Basophil abs 0.1 0.0 - 0.1 K/cumm [facility] Neutrophil pct 77.7 % [facility] Comment: Interpretive Data Percent cell count reference ranges are not reported, since discordance with absolute values may lead to misinterpretation of CBC data. Current Interpretive Data was last revised on 2017. Imm gran pct 2.6 % [facility] Comment: Interpretive Data Percent cell count reference ranges are not reported, since discordance with absolute values may lead to misinterpretation of CBC data. Current Interpretive Data was last revised on 2017. Lymphocyte pct 12.7 % [facility] Comment: Interpretive Data Percent cell count reference ranges are not reported, since discordance with absolute values may lead to misinterpretation of CBC data. Current Interpretive Data was last revised on 2017. Monocyte pct 6.4 % [facility] Comment: Interpretive Data Percent cell count reference ranges are not reported, since discordance with absolute values may lead to misinterpretation of CBC data. Current Interpretive Data was last revised on 2017. Eosinophil pct 0.3 % [facility] Comment: Interpretive Data Percent cell count reference ranges are not reported, since discordance with absolute values may lead to misinterpretation of CBC data. Current Interpretive Data was last revised on 2017. Basophil pct 0.3 % [facility] Comment: Interpretive Data Percent cell count reference ranges are not reported, since discordance with absolute values may lead to misinterpretation of CBC data. Current Interpretive Data was last revised on 2017. Blood specimen (specimen) 06/29/2019 06/29/2019 12:29 AM HOSE HANDLER Brittany Serrano NP LAB BLOOD ORDERABLES Final Res ult Performing Organization Address [facility] Co de Phone Number [facility] [place] [address] * Infection Prevention MRSA Only (Staphylococcus aureus) Culture Nasal (06/29/2019 12:00 AM HOSE HANDLER) Report Final Report: Negative [facility] Nasal 06/29/2019 06/29/2019 2:0 3 AM HOSE HANDLER Narrative [facility] - 06/30/2019 8:01 AM HOSE HANDLER Testing performed by [facility] ([phone]). Brittany Serrano NP LAB MICROBIOLOGY - GENERAL ORD ERABLES Final Result Performing Organization Address [facility] [place] [address] * (ABNORMAL) Lactate, whole blood (06/29/2019 12:00 AM HOSE HANDLER) Lactate, bld 3.1(H) 0.7 - 2.0 mmol/L [facility] Blood specimen (specimen) 06/29/2019 06/29/2019 12:29 AM HOSE HANDLER Brittany Serrano NP LAB BLOOD ORDERABLES Final Res ult Performing Organization Address [facility] Co de Phone Number [facility] [place] [place] [address] * (ABNORMAL) Blood gas, arterial (06/29/2019 12:00 AM HOSE HANDLER) pH, Art 7.46(H) 7.35 - 7.45 [facility] PCO2, Arterial 36 35 - 45 mmHg [facility] PO2, Arterial 71(L) 83 - 108 mmHg [facility] HCO3 Art (Calculated) 27 20 - 30 mmol/L [facility] BE, art 3 mmol/L [facility] Comment: Interpretive Data No Reference Range Established Current Interpretive Data was last revised on 2017 O2 Sat Art (Measured) 95 90 - 95 % [facility] Blood specimen (specimen) 06/29/2019 06/29/2019 12:29 AM HOSE HANDLER Brittany Serrano WAFFLE MACHINE OPERATOR LAB BLOOD ORDERABLES Final Res ult Performing Organization Address [facility] de Phone Number [facility] [place] [address] * Calcium, ionized (06/29/2019 12:00 AM HOSE HANDLER) Calcium, Ionized 4.75 4.50 - 5.10 mg/dL [facility] Blood specimen (specimen) 06/29/2019 06/29/2019 12:26 AM HOSE HANDLER Brittany Serrano WAFFLE MACHINE OPERATOR LAB BLOOD ORDERABLES Final Res ult Performing Organization Address [facility] de Phone Number [facility] [place] [address] * Potassium, whole blood (06/29/2019 12:00 AM HOSE HANDLER) Potassium, bld 4.6 3.3 - 4.9 mmol/L [facility] Blood specimen (specimen) 06/29/2019 06/29/2019 12:29 AM HOSE HANDLER [facility] WAFFLE MACHINE OPERATOR LAB BLOOD ORDERABLES Final Res ult Performing Organization Address [facility] [place] [address] * (ABNORMAL) Basic metabolic panel (06/29/2019 12:00 AM HOSE HANDLER) Sodium 137 135 - 145 mmol/L [facility] Potassium, pl 5.1(H) 3.3 - 4.9 mmol/L [facility] Comment:Hemolyzed; (++); pot assium value may be falsely elevated by as much as 0.3 - 0.5 mmol/L. Suggest redraw and reanalysis. Chloride 102 97 - 110 mmol/L [facility] CO2 26 22 - 32 mmol/L [facility] Anion gap 9 2 - 15 mmol/L [facility] BUN 38(H) 8 - 25 mg/dL [facility] Creatinine 1.41(H) 0.60 - 1.10 mg/dL [facility] Glucose 198 70 - 199 mg/dL [facility] Comment: Interpretive Data Fasting glucose >/= 126 [...] 2017. Calcium 9.7 8.5 - 10.3 mg/dL [facility] Blood specimen (specimen) 06/29/2019 06/29/2019 12:26 AM HOSE HANDLER Brittany Serrano NP LAB BLOOD ORDERABLES Final Res ult Performing Organization Address [facility] Co de Phone Number [facility] Department [place] [place] [address] * Phosphorus (06/29/2019 12:00 AM HOSE HANDLER) Phosphorus, pl 2.8 2.3 - 4.5 mg/dL [facility] Blood specimen (specimen) 06/29/2019 06/29/2019 12:26 AM HOSE HANDLER Brittany Serrano WAFFLE MACHINE OPERATOR LAB BLOOD ORDERABLES Final Res ult Performing Organization Address City/[facility]/ZIP Co de Phone Number [facility] [place] [place] [address] * Magnesium (06/29/2019 12:00 AM HOSE HANDLER) Pathologist [facility] Magnesium 1.5 1.4 - 2.5 mg/dL [facility] Blood specimen (specimen) 06/29/2019 06/29/2019 12:26 AM HOSE HANDLER Brittany Serrano WAFFLE MACHINE OPERATOR LAB BLOOD ORDERABLES Final Res ult Performing Organization Address [facility]/ZIP Co de Phone Number [facility] [place] [address] * (ABNORMAL) CBC with auto differential (06/29/2019 12:00 AM HOSE HANDLER) Pathologist [facility] WBC 21.3(H) 3.8 - 9.9 K/cumm [facility] Hgb 8.5(L) 11.9 - 15.5 g/dL [facility] Hct 26.0(L) 35.6 - 45.5 % [facility] Plt 225 150 - 400 K/cumm [facility] MPV 11.1 9.1 - 12.3 fL [facility] RBC 3.02(L) 3.90 - 5.20 M/cumm [facility] MCV 86.1 81.3 - 96.4 fL [facility] MCH 28.1 27.1 - 33.3 pg [facility] MCHC 32.7 32.3 - 35.7 g/dL [facility] RDW CV 20.8(H) 11.1 - 14.9 % [facility] RDW SD 63.0(H) 35.7 - 48.1 fL [facility] NRBC abs 0.02(H) 0.00 - 0.01 K/cumm [facility] Blood specimen (specimen) 06/29/2019 06/29/2019 12:29 AM HOSE HANDLER Brittany Serrano WAFFLE MACHINE OPERATOR LAB BLOOD ORDERABLES Final Res ult Performing Organization Address [facility]/ZIP Co de Phone Number [facility] Department [place] [address] * Beta-hydroxybutyrate (06/29/2019 12:00 AM HOSE HANDLER) Beta-Hydroxybut yrate 0.1 0.0 - 0.5 mmol/L [facility] Blood specimen (specimen) 06/29/2019 06/29/2019 12:26 AM HOSE HANDLER Narrative [facility] LINDSAY - 06/29/2019 12:39 AM HOSE HANDLER Once PRN blood glucose greater than 299 mg/dL. us Cas Reid MD LAB BLOOD ORDERABLES Final Res ult [facility] Department [place] [address] * Critical Care (06/28/2019 11:57 PM HOSE HANDLER) Narrative Ina Russo MD - 06/28/2019 11:57 PM HOSE HANDLER Brittany Serrano NP ? 06/29/2019 ??4:30 AM [...] plan with the ICU team and other medical/security system sales consultant staff, making frequent assessments and decisions [...] time documenting in the medical record us Brittany Serrano WAFFLE MACHINE OPERATOR IN CLINIC/BEDSIDE ORDERABLES F inal Result * (ABNORMAL) POCT glucose (06/28/2019 11:33 PM HOSE HANDLER) Glucose, POC 228(H) 70 - 199 mg/dL [facility] Glucose comment 1 RN Notified [facility] Blood specimen (specimen) 06/28/2019 11:33 PM HOSE HANDLER 06/28/2019 11:33 PM HOSE HANDLER Lo Laura DO LAB POCT ORDERABLES - DE VICE Final Result Performing Organization Address [facility] Co de Phone Number [facility] Department [place] [address] * [place] Fluoroscopy < 1 Hour (06/28/2019 10:47 PM HOSE HANDLER) Narrative [facility] - 06/28/2019 10:47 PM HOSE HANDLER The images from this study are not interpreted by Radiology. ??Please refer to the physician's procedure / OR operative note. oL Laura DO IMG FLUOROSCOPY PROCEDUR ES Final Result Performing Organization Address [facility]/ZIP Co de Phone Number [email or web address] * Check Sample (06/28/2019 10:33 PM HOSE HANDLER) ABO Rh A Positive [facility] HCLL OTHER 06/28/2019 10:3 3 PM HOSE HANDLER 06/28/2019 11:34 PM HOSE HANDLER Lo Laura DO LAB BLOOD ORDERABLES Fin al Result Performing Organization Address [facility]/ZIP Co de Phone Number [facility] Department [place] [address] * (ABNORMAL) POC Blood Gas and Chemistries, Venous - (06/28/2019 10:25 PM HOSE HANDLER) pH, Rj POC 7.35 7.32 - 7.43 [facility] pCO2, rj POC 52(H) 40 - 50 mmHg [facility] pO2, rj POC 29 mmHg [facility] Na, POC 138 135 - 145 mmol/L [facility] K POC 4.9 3.3 - 4.9 mmol/L [facility] Cl, POC 102 97 - 110 mmol/L [facility] Ionized Ca, POC 5.38(H) 4.50 - 5.10 mg/dL [facility] Glucose, POC 236(H) 70 - 199 mg/dL [facility] Lactate, POC 3.3(H) 0.7 - 2.2 mmol/L [facility] O2 Sat, Rj POC (Gorge) 52 % [facility] Base excess, POC 2.1 mmol/L [facility] HCO3, Rj POC 29 20 - 30 mmol/L [facility] Hct, POC 24.0(L) 36.3 - 45.3 % [facility] Total Hb, POC 7.9(L) 11.9 - 15.5 g/dL [facility] O2 Sat, Rj POC (Calc) 51 % [facility] Blood specimen (specimen) 06/28/2019 10:25 PM HOSE HANDLER 06/28/2019 10:25 PM HOSE HANDLER us Lo Laura DO LAB POCT ORDERABLES - DE VICE Final Result [facility] Department [place] [address] * Type and screen (06/28/2019 10:02 PM HOSE HANDLER) ABO Rh A Positive [facility] Triston, indirect Negative [facility] Blood specimen (specimen) 06/28/2019 10:02 PM HOSE HANDLER 06/28/2019 10:24 PM HOSE HANDLER Narrative [facility] - 06/28/2019 11:54 PM HOSE HANDLER Has the patient had Daratumumab (Darzalex) in the past 6 months?->Unknown Cas Reid MD LAB BLOOD BANK TEST ORDERABLES Final Result Performing Organization Address [facility] Co de Phone Number [facility] [place] [address] * (ABNORMAL) POCT glucose (06/28/2019 9:39 PM HOSE HANDLER) Pathologist [facility] Glucose, POC 274(H) 70 - 199 mg/dL [facility] Blood specimen (specimen) 06/28/2019 9:39 PM HOSE HANDLER 06/28/2019 9:39 PM HOSE HANDLER Dean Ritter MD LAB POCT ORDERABLES - DEV ICE Final Result Performing Organization Address [facility] de Phone Number [facility] [place] [address] * Prepare RBC: 2 Units (06/28/2019 9:18 PM HOSE HANDLER) [facility] Product code [id number] [facility] Unit Number [id number] 3-C [facility] Product Blood Type OPOS [facility] Dispense Status RETURNED [facility] Product [facility] [id number] [facility] Unit Number [id number] 5-C [facility] Product Blood Type OPOS [facility] Dispense Status RETURNED [facility] Blood specimen (specimen) 06/28/2019 9:18 PM HOSE HANDLER 06/28/2019 9:19 PM HOSE HANDLER Narrative [facility] - 06/29/2019 2:44 AM HOSE HANDLER Specify Procedure:->open tibia fracture Are special requirements needed? (all products are leukoreduced)->No Date required:-[id number] LRRBC # of [id number] Reasons:-Hold for procedure (specify procedure)} Cas Reid MD BLOOD BANK PRODUCT ORDERABLES Final Result Performing Organization Address [facility] Co de Phone Number [facility] Department [place] [address] * Prepare RBC (06/28/2019 8:51 PM HOSE HANDLER) Product code [id number] [facility] Unit Number [id number] [facility] Product Blood Type ONEG [facility] Dispense Status RETURNED [facility] Product code [id number] [facility] Unit Number [id number] [facility] Product Blood Type OPOS [facility] Dispense Status RETURNED [facility] Product code [id number] [facility] Unit Number [id number] [facility] Product Blood Type ONEG [facility] Dispense Status RETURNED [facility] Product code [id number] [facility] Unit Number [id number] [facility] Product Blood Type OPOS [facility] Dispense Status RETURNED [facility] Product code [id number] [facility] Unit Number [id number] [facility] Product Blood Type OPOS [facility] Dispense Status PRESUMED TRANSFUSED [facility] Product code [id number] [facility] Unit Number [id number] [facility] Product Blood Type OPOS [facility] Dispense Status PRESUMED TRANSFUSED [facility] Product code [id number] [facility] Unit Number [id number] [facility] Product Blood Type APOS [facility] Dispense Status RETURNED [facility] Blood specimen (specimen) 06/28/2019 8:51 PM HOSE HANDLER 06/28/2019 8:51 PM HOSE HANDLER Forrest Begum MD BLOOD BANK PRODUCT ORDERABLES Final Result [facility]AIL[facility] QUINTERO [facility] Department [place] [address] * (ABNORMAL) Differential, auto (06/28/2019 8:42 PM HOSE HANDLER) Neutrophil abs 15.4(H) 1.7 - 6.5 K/cumm [facility] Imm gran abs 0.6(H) 0.0 - 0.1 K/cumm [facility] Lymphocyte abs 2.8 0.8 - 3.3 K/cumm [facility] Monocyte abs 1.2(H) 0.2 - 0.8 K/cumm [facility] Eosinophil abs 0.2 0.0 - 0.5 K/cumm [facility] Basophil abs 0.1 0.0 - 0.1 K/cumm [facility] Neutrophil pct 76.0 % [facility] Comment: Interpretive Data Percent cell count reference ranges are not reported, since discordance with absolute values may lead to misinterpretation of CBC data. Current Interpretive Data was last revised on 2017. Imm gran pct 3.1 % [facility] Comment: Interpretive Data Percent cell count reference ranges are not reported, since discordance with absolute values may lead to misinterpretation of CBC data. Current Interpretive Data was last revised on 2017. Lymphocyte pct 13.9 % [facility] Comment: Interpretive Data Percent cell count reference ranges are not reported, since discordance with absolute values may lead to misinterpretation of CBC data. Current Interpretive Data was last revised on 2017. Monocyte pct 5.8 % [facility] Comment: Interpretive Data Percent cell count reference ranges are not reported, since discordance with absolute values may lead to misinterpretation of CBC data. Current Interpretive Data was last revised on 2017. Eosinophil pct 0.9 % [facility] Comment: Interpretive Data Percent cell count reference ranges are not reported, since discordance with absolute values may lead to misinterpretation of CBC data. Current Interpretive Data was last revised on 2017. Basophil pct 0.3 % [facility] Comment: Interpretive Data Percent cell count reference ranges are not reported, since discordance with absolute values may lead to misinterpretation of CBC data. Current Interpretive Data was last revised on 2017. Blood specimen (specimen) 06/28/2019 8:42 PM HOSE HANDLER 06/28/2019 9:04 PM HOSE HANDLER Mago Brian MD LAB BLOOD ORDERABLES Final Result [facility] Department [place] [address] * (ABNORMAL) CBC with auto differential (06/28/2019 8:42 PM HOSE HANDLER) WBC 20.3(H) 3.8 - 9.9 K/cumm [facility] Hgb 8.5(L) 11.9 - 15.5 g/dL [facility] Hct 26.4(L) 35.6 - 45.5 % [facility] Plt 188 150 - 400 K/cumm [facility] MPV 11.3 9.1 - 12.3 fL [facility] RBC 3.07(L) 3.90 - 5.20 M/cumm [facility] MCV 86.0 81.3 - 96.4 fL [facility] Comment:MCV delta due to alfredo gical procedure. MCH 27.7 27.1 - 33.3 pg [facility] MCHC 32.2(L) 32.3 - 35.7 g/dL [facility] RDW CV 20.5(H) 11.1 - 14.9 % [facility] RDW SD 63.5(H) 35.7 - 48.1 fL [facility] NRBC abs 0.02(H) 0.00 - 0.01 K/cumm [facility] Blood specimen (specimen) 06/28/2019 8:42 PM HOSE HANDLER 06/28/2019 9:04 PM HOSE HANDLER Narrative [facility] - 06/28/2019 9:53 PM HOSE HANDLER THE COLLECTION LOCATION IS [address] us Mago Brian MD LAB BLOOD ORDERABLES Final Result [facility] Department [place] [address] * (ABNORMAL) POCT glucose (06/28/2019 8:26 PM HOSE HANDLER) Pathologist [facility] Glucose, POC 267(H) 70 - 199 mg/dL [facility] Blood specimen (specimen) 06/28/2019 8:26 PM HOSE HANDLER 06/28/2019 8:26 PM HOSE HANDLER us Forrest Begum MD LAB POCT ORDERABLES - DEVICE Final Result [facility] Department [place] [address] * [place] CRITICAL CARE ILL/INJURED PATIENT INIT 30-74 MIN, [place] CRITICAL CARE ILL/INJURED PATIENT ADDL 30 MIN (06/28/2019 7:50 PM HOSE HANDLER) Narrative Forrest Begum MD - 06/28/2019 7:50 PM HOSE HANDLER Forrest Begum MD ? 06/28/2019 ??7:51 PM [...] Result * POCT glucose (06/28/2019 7:31 PM HOSE HANDLER) Glucose, POC 176 70 - 199 mg/dL [facility] Blood specimen (specimen) 06/28/2019 7:31 PM HOSE HANDLER 06/28/2019 7:31 PM HOSE HANDLER Forrest Begum MD LAB POCT ORDERABLES - DEVICE Final Result [facility] Department [place] [address] * POCT hCG, urine (06/28/2019 7:23 PM HOSE HANDLER) HCG, ur, POC Negative Lot Number [id number] QC Backgroud Clear Acceptable QC Control Line Acceptable Urine 06/28/2019 7:23 PM HOSE HANDLER Forrest Begum MD POINT OF CARE TEST ORDERABLES Final Result * XR Tibia Fibula Left 2 Views (06/28/2019 7:20 PM HOSE HANDLER) Anatomical Region Laterality Modality Lower Extremities, Lower Leg Left Com puted Radiography 06/28/2019 7:48 PM HOSE HANDLER Impressions 06/29/2019 2:54 PM HOSE HANDLER 1. ??Open comminuted periprosthetic fracture of the [...] Gilberto Fuentes M.D. Narrative 06/29/2019 2:54 PM HOSE HANDLER EXAMINATION: XR ANKLE RIGHT 3 OR MORE [...] and agrees with it. Electronically signed by: Gliberto Fuentes M.D. aMgo Brian MD IMG XR PROCEDURES Fi nal Result * XR Pelvis 1 or 2 Views (06/28/2019 7:19 PM HOSE HANDLER) Anatomical Region Laterality Modality Body, Pelvis N/A Computed Radiogr aphy 06/28/2019 7:48 PM HOSE HANDLER Impressions 06/29/2019 2:54 PM HOSE HANDLER 1. ??Open comminuted periprosthetic fracture of the [...] Gilberto Fuentes M.D. Narrative 06/29/2019 2:54 PM HOSE HANDLER EXAMINATION: XR ANKLE RIGHT 3 OR MORE [...] Fibula Right 2 Views (06/28/2019 7:19 PM HOSE HANDLER) Anatomical Region Laterality Modality Lower Extremities, Lower Leg Right Com puted Radiography 06/28/2019 7:48 PM HOSE HANDLER Impressions 06/29/2019 2:54 PM HOSE HANDLER 1. ??Open comminuted periprosthetic fracture of the [...] Gilberto Fuentes M.D. Narrative 06/29/2019 2:54 PM HOSE HANDLER EXAMINATION: XR ANKLE RIGHT 3 OR MORE [...] 3 or More Views (06/28/2019 7:19 PM HOSE HANDLER) Anatomical Region Laterality Modality Lower Extremities, Ankle Left Compute d Radiography 06/28/2019 7:48 PM HOSE HANDLER Impressions 06/29/2019 2:54 PM HOSE HANDLER 1. ??Open comminuted periprosthetic fracture of the proximal left tibia 2. ??Open comminuted fracture of the proximal left fibula 3. ??Mildly displaced intra-articular right medial malleolus fracture 4. ??No acute pelvic fracture. Dictated by: Lhu Moffett M.D. The radiology attending physician has personally reviewed this study, and had reviewed and/or edited this written report and agrees with it. Electronically signed by: Gilberto Fuentes M.D. Narrative 06/29/2019 2:54 PM HOSE HANDLER EXAMINATION: XR ANKLE RIGHT 3 OR MORE [...] it. Electronically signed by: Gilberto Fuentes M.D. Maog Brian MD IMG XR PROCEDURES Fi nal Result * XR Chest 1 Vw Portable (06/28/2019 7:19 PM HOSE HANDLER) Anatomical Region Laterality Modality Body, Chest N/A Computed Radiogr aphy 06/28/2019 7:57 PM HOSE HANDLER Impressions 06/29/2019 2:53 PM HOSE HANDLER 1st is made to same day chest [...] Gilberto Fuentes M.D. Narrative 06/29/2019 2:53 PM HOSE HANDLER EXAMINATION: 1 view chest radiograph Procedure Note [...] 2 or More Views (06/28/2019 7:19 PM HOSE HANDLER) Anatomical Region Laterality Modality Lower Extremities, Thigh, Femur Left Computed Radiography 06/28/2019 7:48 PM HOSE HANDLER Impressions 06/29/2019 2:54 PM HOSE HANDLER 1. ??Open comminuted periprosthetic fracture of the [...] Gilberto Fuentes M.D. Narrative 06/29/2019 2:54 PM HOSE HANDLER EXAMINATION: XR ANKLE RIGHT 3 OR MORE [...] 1 or 2 Views (06/28/2019 7:19 PM HOSE HANDLER) Anatomical Region Laterality Modality Lower Extremities, Knee Left Computed Radiography 06/28/2019 7:48 PM HOSE HANDLER Impressions 06/29/2019 2:54 PM HOSE HANDLER 1. ??Open comminuted periprosthetic fracture of the [...] Gilberto Fuentes M.D. Narrative 06/29/2019 2:54 PM HOSE HANDLER EXAMINATION: XR ANKLE RIGHT 3 OR MORE [...] 3 or More Views (06/28/2019 7:18 PM HOSE HANDLER) Anatomical Region Laterality Modality Lower Extremities, Ankle Right Compute d Radiography 06/28/2019 7:48 PM HOSE HANDLER Impressions 06/29/2019 2:54 PM HOSE HANDLER 1. ??Open comminuted periprosthetic fracture of the proximal left tibia 2. ??Open comminuted fracture of the proximal left fibula 3. ??Mildly displaced intra-articular right medial malleolus fracture 4. ??No acute pelvic fracture. Dictated by: Luh A Zuhair, M.D. The radiology attending physician has personally reviewed this study, and had reviewed and/or edited this written report and agrees with it. Electronically signed by: Gilberto Fuentes M.D. Narrative 06/29/2019 2:54 PM HOSE HANDLER EXAMINATION: XR ANKLE RIGHT 3 OR MORE [...] * Opiates Confirmation, Urine (06/28/2019 6:54 PM HOSE HANDLER) Codeine Conf, Ur Does Not Confirm CutOff 50 ng/mL [facility] 6- Acetylmorphine Conf, Ur Does Not Confirm CutOff 10 ng/mL [facility] Oxycodone Conf, Ur Does Not Confirm CutOff 50 ng/mL [facility] Hydrocodone Conf, Ur Confirmed Positive CutOff 50 ng/mL [facility] Morphine Conf, Ur Confirmed Positive CutOff 50 ng/mL [facility] Hydromorphone Conf, Ur Does Not Confirm CutOff 50 ng/mL [facility] Oxymorphone Conf, Ur Does Not Confirm CutOff 50 ng/mL [facility] Urine 06/28/2019 6:54 PM HOSE HANDLER 06/28/2019 7:06 PM HOSE HANDLER Forrest Begum MD LAB URINE ORDERABLES Final Re sult Performing Organization Address [facility] de Phone Number [facility] [place] [address] * Fentanyl Confirmation, Urine (06/28/2019 6:54 PM HOSE HANDLER) Fentanyl Conf, Ur Confirmed Positive Cutoff 1 ng/mL [facility] Acetylfentanyl Conf, Ur Does Not Confirm CutOff 2 ng/mL [facility] Acrylfentanyl Conf, Ur Does Not Confirm CutOff 2 ng/mL [facility] Furanylfentanyl Conf, Ur Does Not Confirm CutOff 2 ng/mL [facility] Fentanyl Metabolite (Norfentanyl) Conf, Ur Does Not Confirm CutOff 10 ng/mL [facility] Urine 06/28/2019 6:54 PM HOSE HANDLER 06/28/2019 7:06 PM HOSE HANDLER Forrest Begum MD LAB URINE ORDERABLES Final Re sult Performing Organization Address [facility] de Phone Number [facility] [place] [address] * (ABNORMAL) Urinalysis, microscopic only (06/28/2019 6:54 PM HOSE HANDLER) WBC, ur 6-10(A) 0 - 5 /HPF [facility] RBC, ur 0-2 0 - 2 /HPF [facility] Hyaline casts, ur 11-20(A) 0 - 10 /LPF [facility] Culture Reflex Comment Reflex conditions for urine culture (WBC >10) not met. [facility] Urine, indwelling catheter 06/28/2019 6:54 PM HOSE HANDLER 06/28/2019 7:03 PM HOSE HANDLER us Holly Monzon MD LAB URINE ORDERABLES Final R esult Performing Organization Address [facility] Co de Phone Number [facility] [place] [address] * (ABNORMAL) Potassium, whole blood (06/28/2019 6:54 PM HOSE HANDLER) Pathologist [facility] Potassium, bld 5.6(H) 3.3 - 4.9 mmol/L [facility] Blood specimen (specimen) 06/28/2019 6:54 PM HOSE HANDLER 06/28/2019 7:03 PM HOSE HANDLER Narrative [facility] - 06/28/2019 7:13 PM HOSE HANDLER THE COLLECTION LOCATION IS [address] us Holly Monzon MD LAB BLOOD ORDERABLES Final R esult Performing Organization Address [facility] Co de Phone Number [facility] [place] [address] * (ABNORMAL) Blood gas, arterial (06/28/2019 6:54 PM HOSE HANDLER) pH, Art 7.45 7.35 - 7.45 [facility] PCO2, Arterial 39 35 - 45 mmHg [facility] PO2, Arterial 192(H) 83 - 108 mmHg [facility] HCO3 Art (Calculated) 28 20 - 30 mmol/L [facility] BE, art 3 mmol/L [facility] Comment: Interpretive Data No Reference Range Established Current Interpretive Data was last revised on 2017 O2 Sat Art (Measured) 99(H) 90 - 95 % [facility] Blood specimen (specimen) (Blood, Arterial) 06/28/2019 6:54 PM HOSE HANDLER 06/28/2019 7:00 PM HOSE HANDLER Narrative [facility] - 06/28/2019 7:12 PM HOSE HANDLER THE COLLECTION LOCATION IS [address] Holly Monzon MD LAB BLOOD ORDERABLES Final R esult [facility] Department [place] [address] * (ABNORMAL) Drugs of Abuse Screen, Urine with Reflex Confirmation (06/28/2019 6:54 PM HOSE HANDLER) Amphetamine, ur Not Detected CutOff 500ng/mL [facility] Comment: Interpretive Data - Amphetamines: ??Samples containing greater than 500 ng/mL d-methamphetamine ??or other cross-reacting amphetamine compounds are reported as positive. ??Amphetamine immunoassays are subject to significant false positive rates due to cross-reactivity of non-amphetamine drugs. Current Interpretive Data was last reviewed 2018. Barbiturates, ur Detected(A) CutOff 200ng/mL [facility] Comment: Interpretive Data - Barbiturates: ??Samples containing greater than 200 ng/mL secobarbital or other cross-reacting barbiturate compounds are reported as positive. ??False positive and false negative results are possible. Current Interpretive Data was last reviewed 2018. Benzodiazepines, ur Not Detected CutOff 100ng/mL [facility] Comment: Interpretive Data - Benzodiazepines: ??Samples containing greater than 100 ng/mL nordiazepam or other cross-reacting compounds are reported as positive. ?? False positive and false negative results are possible. ?? Current Interpretive Data was last reviewed 2018. Cannabinoids, ur Not Detected CutOff 50 ng/mL [facility] Comment: Interpretive Data - Cannabinoids: ??Samples containing greater than 50 ng/mL delta-9 THC -COOH or other cross-reacting compounds are reported as positive. ??False positive and false negative results are possible. ?? Current Interpretive Data was last reviewed 2018. Cocaine, ur Not Detected CutOff 150ng/mL [facility] Comment: Interpretive Data - Cocaine: ??Samples containing greater than 150 ng/mL benzoylecgonine or other cross-reacting compounds are reported as positive. False positive and false negative results are possible. Current Interpretive Data was last reviewed 2018. Fentanyl, Ur Detected(A) Cutoff 1 ng/mL [facility] Comment: Interpretive Data - Fentanyls: ??Samples containing greater than 1 ng/mL fentanyl or other cross-reacting fentanyl compounds are reported as detected. ??False positive and false negative results are possible. Current Interpretive Data was last reviewed 2019. Methadone, ur Not Detected CutOff 300ng/mL [facility] Comment: Interpretive Data - Methadone: ??Samples containing greater than 300 ng/mL d,l-methadone or other cross-reacting compounds are reported as positive. ??False positive and false negative results are possible. Current Interpretive Data was last reviewed 2018. Opiates, ur Detected(A) CutOff 300ng/mL [facility] Comment: Interpretive Data - Opiates: ??Samples containing greater than 300 ng/mL morphine or other cross-reacting compounds are reported as positive. ??False positive and false negative results are possible. Current Interpretive Data was last reviewed 2018. Oxycodone, ur Not Detected CutOff 100ng/mL [facility] Comment: Interpretive Data - Oxycodone: ??Samples containing greater than 100 ng/mL oxycodone or other cross-reacting compounds are reported as positive. ??False positive and false negative results are possible. ?? Current Interpretive Data was last reviewed 2018. Phencyclidine, ur Not Detected CutOff 25 ng/mL [facility] Comment: Interpretive Data - Phencyclidine: ??Samples containing greater than 25 ng/mL phencyclidine or other cross-reacting compounds are reported as positive. ??False positive and false negative results are possible. ?? Current Interpretive Data was last reviewed 2018. Urine Creatinine 42 mg/dL [facility] Comment: Interpretive Data Urine Creatinine: < 10 mg/dL is extremely dilute = or > 10 but < 20 mg/dL is dilute = or > 20 mg/dL is normal Current Interpretive Data was last revised on 2017. Urine 06/28/2019 6:54 PM HOSE HANDLER 06/28/2019 7:03 PM HOSE HANDLER Narrative [facility] - 06/28/2019 7:47 PM HOSE HANDLER THE COLLECTION LOCATION IS [address] ??Drug of Abuse screening is performed [...] MD LAB URINE ORDERABLES Final Re sult [facility] Department [place] [address] * (ABNORMAL) Urinalysis reflex to microscopic and culture Urine, indwelling catheter (06/28/2019 6:54PM HOSE HANDLER) Color, ur Yellow Yellow [facility] Clarity, ur Clear Clear [facility] Specific gravity, ur 1.013 1.010 - 1.025 [facility] pH, urine 6 [facility] Protein, ur ql 1+(A) Negative [facility] Glucose, ur ql Negative Negative [facility] Ketones, ur Negative Negative [facility] Bilirubin, ur Negative Negative [facility] Blood, ur Negative Negative [facility] Urobilinogen, ur <2.0 <2.0 mg/dL [facility] Nitrite, ur Negative Negative [facility] Leukocyte esterase, ur 1+(A) Negative [facility] UA reflex comment Reflex to microscopic UA will be performed. [facility] Urine, indwelling catheter 06/28/2019 6:54 PM HOSE HANDLER 06/28/2019 7:03 PM HOSE HANDLER Narrative [facility] - 06/28/2019 7:09 PM HOSE HANDLER THE BJ COLLECTION LOCATION IS [address] Urine pH is affected by diet, medications, systemic acid-base disturbances, and renal tubular function. ??pH may affect urinary stone formation. ??For example, urine pH below 6.0 may help reduce the tendency for calcium phosphate stones and pH greater than 6.0 may reduce the tendency for uric acid stone formation. Source: [employer]. Last revised 08-05-2017 us Holly Monzon MD LAB MICROBIOLOGY - GENERAL O RDERABLES Final Result Performing Organization Address [facility] de Phone Number [facility] Department [place] [address] * (ABNORMAL) ECG 12-LEAD (06/28/2019 6:51 PM HOSE HANDLER) Narrative [facility] - 06/28/2019 6:51 PM HOSE HANDLER Forrest Begum MD ? 06/28/2019 ??6:52 PM ECG 12 lead Date/Time: 06/28/2019 6:51 PM Performed by: Forrest Begum MD Authorized by: Holly Monzon MD Rate: ??ECG rate: ??77 ??ECG [...] Performed by: Forrest Begum MD Authorized by: Holly Monzon MD Rate: ECG rate: 77 ECG rate assessment: normal Rhythm: Rhythm: sinus rhythm Ectopy: Ectopy: none QRS: QRS axis: Left QRS intervals: Normal Conduction: Conduction: normal ST segments: ST segments: Normal T waves: T waves: normal Other findings: Other findings: LVH Previous ECG: Previous ECG: Compared to current Date of previous EC06/09/2019 Similarity: No change Interpretation: Interpretation: abnormal Forrest Begum MD 06/28/19 9731 us Holly Monzon MD ECG ORDERABLES Final Result Performing Organization Address [facility] Co de Phone Number [facility] * CT Chest Abdomen Pelvis W Contrast (06/28/2019 6:27 PM HOSE HANDLER) Anatomical Region Laterality Modality Body N/A Computed Tomogra phy 06/28/2019 7:21 PM HOSE HANDLER Impressions 06/29/2019 2:23 PM HOSE HANDLER 1. ??No acute intra-abdominal traumatic injury. 2. ??Scattered, biapical groundglass opacities with septal line thickening may represent mild pulmonary edema. 3. ??Mild bibasilar atelectasis. Dictated by: Mikhail Beyer The radiology attending physician has personally reviewed this study, and had reviewed and/or edited this written report and agrees with it. Electronically signed by: Gilberto Fuentes M.D. Narrative 06/29/2019 2:23 PM HOSE HANDLER EXAMINATION: ??Computed tomography of the chest, abdomen [...] Gilberto Fuentes M.D. Mago Brian MD IMG CT PROCEDURES Fi nal Result * CTA Lower Extremity Left (06/28/2019 6:27 PM HOSE HANDLER) Anatomical Region Laterality Modality Lower Extremities Left Computed Tomog maryann 06/28/2019 7:48 PM HOSE HANDLER Impressions 06/29/2019 2:46 PM HOSE HANDLER 1. ??Left lower extremity: Three-vessel runoff. 2. [...] Gilberto Fuentes M.D. Narrative 06/29/2019 2:46 PM HOSE HANDLER EXAMINATION: ??CT ANGIOGRAPHY OF THE LEFT LOWER [...] Gilberto Fuentes M.D. Mago Brian MD IMG CT PROCEDURES Fi nal Result * CT Head and Cervical Spine WO Contrast (06/28/2019 6:21 PM HOSE HANDLER) Anatomical Region Laterality Modality Head and Neck N/A Computed Tomogra phy 06/28/2019 6:59 PM HOSE HANDLER Impressions 06/29/2019 10:45 AM HOSE HANDLER 1. No acute intracranial abnormality, such as [...] Krupa Grossman M.D. Narrative 06/29/2019 10:45 AM HOSE HANDLER EXAMINATION: Noncontrast head CT CT of the [...] Result * ED INTUBATION (06/28/2019 5:37 PM HOSE HANDLER) Forrest Stewart MD - 06/28/2019 5:37 PM HOSE HANDLER Mago Brian MD ? 06/28/2019 ??5:39 PM Intubation Date/Time: 06/28/2019 5:37 PM Performed by: Mago Brian MD Authorized by: Forrest Begum MD [place] Protocol: ??RN Notified of Procedure: yes ?Informed [...] and matched to patient identification: n/a ?Responsible green party for transporting specimen(s) to lab determined: n/a ?? us Forrest Begum MD IN CLINIC/BEDSIDE ORDERABLES Final Result * (ABNORMAL) Extrensic thromboelastometry (EXTEM) (06/28/2019 5:35 PM HOSE HANDLER) Clotting Time-Extrinsic 81(H) 42 - 60 sec [facility] Clot Formation Time-Extrinsic 145(H) 45 - 131 sec [facility] Angle-Extrinsi c 62(L) 65 - 83 Degree [facility] Max Clot Firmness-Extri nsic 51(L) 53 - 75 mm [facility] Lysis 30-Extrinsic 100 85 - 100 % [facility] Blood specimen (specimen) 06/28/2019 5:35 PM HOSE HANDLER 06/28/2019 5:40 PM HOSE HANDLER Narrative [facility] - 06/28/2019 6:48 PM HOSE HANDLER THE BJ COLLECTION LOCATION IS [address] Forrest Begum MD LAB BLOOD ORDERABLES Final Re sult [facility] [address] * Thrombocyte inhibited fibrinogen (FIBTEM) (06/28/2019 5:35 PM HOSE HANDLER) [facility] Maximum Clot Firm-Fibrinogen 12 9 - 29 mm [facility] Blood specimen (specimen) 06/28/2019 5:35 PM HOSE HANDLER 06/28/2019 5:40 PM HOSE HANDLER Narrative [facility] - 06/28/2019 6:48 PM HOSE HANDLER THE BJ COLLECTION LOCATION IS [address] us Forrest Begum MD LAB BLOOD ORDERABLES Final Re sult Performing Organization Address [facility]/ZIP [place] [address] * (ABNORMAL) Blood gas, venous (06/28/2019 5:35 PM HOSE HANDLER) [facility] pH, Venous 7.27(L) 7.32 - 7.43 [facility] PCO2, Venous 63(H) 40 - 50 mmHg [facility] PO2, Venous 30 mmHg [facility] Comment: Interpretive Data No Reference Range Established Current Interpretive Data was last revised on 2017. HCO3 Venous, Calculated 30 20 - 30 mmol/L [facility] BE, venous 1 mmol/L [facility] Comment: Interpretive Data No Reference Range Established Current Interpretive Data was last revised on 2017. Blood specimen (specimen) 06/28/2019 5:35 PM HOSE HANDLER 06/28/2019 5:40 PM HOSE HANDLER Narrative [facility] - 06/28/2019 5:45 PM HOSE HANDLER THE BJ COLLECTION LOCATION IS [address] us Forrest Begum MD LAB BLOOD ORDERABLES Final Re sult Performing Organization Address City/[facility]/ZIP [place] [address] * (ABNORMAL) POCT creatinine (06/28/2019 5:27 PM HOSE HANDLER) [facility] Creatinine POC 1.4(H) 0.6 - 1.1 mg/dL [facility] Blood specimen (specimen) 06/28/2019 5:27 PM HOSE HANDLER 06/28/2019 5:27 PM HOSE HANDLER us Forrest Begum MD LAB POCT ORDERABLES - DEVICE Final Result Performing Organization Address [facility] Co de Phone Number [facility] [place] [place] [address] * POCT lactate (06/28/2019 5:23 PM HOSE HANDLER) [facility] Lactate POC i-STAT 1.5 0.7 - 2.2 mmol/L [facility] Blood specimen (specimen) 06/28/2019 5:23 PM HOSE HANDLER 06/28/2019 5:23 PM HOSE HANDLER us Forrest Begum MD LAB POCT ORDERABLES - DEVICE Final Result Performing Organization Address [facility] de Phone Number [facility] [place] [address] * POCT glucose (06/28/2019 5:18 PM HOSE HANDLER) [facility] Glucose, POC 161 70 - 199 mg/dL [facility] Blood specimen (specimen) 06/28/2019 5:18 PM HOSE HANDLER 06/28/2019 5:18 PM HOSE HANDLER us Forrest Begum MD LAB POCT ORDERABLES - DEVICE Final Result Performing Organization Address [facility] de Phone Number [facility] [place] [place] [address] * [place] INSJ NON-TUNNELED CENTRAL VENOUS CATH AGE 5 YR/> (06/28/2019 5:10 PM HOSE HANDLER) Narrative Zana Franklin MD - 06/28/2019 5:10 PM HOSE HANDLER Zana Franklin MD ? 07/04/2019 10:20 AM Central Line Insertion Date/Time: 06/29/2019 3:53 AM Performed by: Zana Franklin MD Authorized by: Zana Franklin MD [place] Protocol: RN Notified of Procedure: yes ?? [...] was present for entire portion of procedure. us Zana Franklin MD IN CLINIC/BEDSIDE ORDERAB LES Edited Result - Final * Troponin I (06/28/2019 5:02 PM HOSE HANDLER) Troponin I <0.03 0.00 - 0.03 ng/mL [facility] Comment: Interpretive Data: Normal plasma Troponin I [...] for Troponin assay. References: 1. Clin Chem 2013;[id number] 2. Journal of the [place] [employer] 2012;60:1581-98 Current Interpretive Data Last Revised Date: 2018. Blood specimen (specimen) 06/28/2019 5:02 PM HOSE HANDLER 06/28/2019 5:38 PM HOSE HANDLER Forrest Begum MD LAB BLOOD ORDERABLES Final Re sult Performing Organization Address [facility] de Phone Number [facility] Department [place] [address] * Ethanol (06/28/2019 5:02 PM HOSE HANDLER) Ethanol <10 <=10 mg/dL [facility] Comment: Interpretive Data Legal limit of intoxication > or = 80 mg/dL Levels > or = 400 mg/dL are potentially TOXIC. Current interpretive data was last revised on 2018. Blood specimen (specimen) 06/28/2019 5:02 PM HOSE HANDLER 06/28/2019 5:38 PM HOSE HANDLER Forrest Begum MD LAB BLOOD ORDERABLES Final Re sult Performing Organization Address [facility] de Phone Number [facility] Department [place] [address] * Creatine kinase (CK), total (06/28/2019 5:02 PM HOSE HANDLER) CK 81 30 - 200 Units/L [facility] Blood specimen (specimen) 06/28/2019 5:02 PM HOSE HANDLER 06/28/2019 5:38 PM HOSE HANDLER Forrest Begum MD LAB BLOOD ORDERABLES Final Re sult Performing Organization Address [facility] de Phone Number [facility] Department [place] [address] * Critical Result Callback Chemistry (06/28/2019 5:02 PM HOSE HANDLER) Date Notified [id number] [facility] Time Notified 1815 [facility] TestName Moses [facility] Called/Read Back Mago BEJARANO [facility] Credentials DARCI [facility] Called By Katelynn Hanley [facility] Blood specimen (specimen) 06/28/2019 5:02 PM HOSE HANDLER 06/28/2019 5:38 PM HOSE HANDLER us Holly Monzon MD LAB BLOOD ORDERABLES Final R esult [facility] Department [place] [address] * (ABNORMAL) Differential, auto (06/28/2019 5:02 PM HOSE HANDLER) Pathologist [facility] Neutrophil abs 3.0 1.7 - 6.5 K/cumm [facility] Imm gran abs 0.2(H) 0.0 - 0.1 K/cumm [facility] Lymphocyte abs 3.1 0.8 - 3.3 K/cumm [facility] Monocyte abs 0.3 0.2 - 0.8 K/cumm [facility] Eosinophil abs 0.1 0.0 - 0.5 K/cumm [facility] Basophil abs 0.0 0.0 - 0.1 K/cumm [facility] Neutrophil pct 44.6 % [facility] Comment: Interpretive Data Percent cell count reference ranges are not reported, since discordance with absolute values may lead to misinterpretation of CBC data. Current Interpretive Data was last revised on 2017. Imm gran pct 2.5 % [facility] Comment: Interpretive Data Percent cell count reference ranges are not reported, since discordance with absolute values may lead to misinterpretation of CBC data. Current Interpretive Data was last revised on 2017. Lymphocyte pct 46.5 % [facility] Comment: Interpretive Data Percent cell count reference ranges are not reported, since discordance with absolute values may lead to misinterpretation of CBC data. Current Interpretive Data was last revised on 2017. Monocyte pct 5.1 % [facility] Comment: Interpretive Data Percent cell count reference ranges are not reported, since discordance with absolute values may lead to misinterpretation of CBC data. Current Interpretive Data was last revised on 2017. Eosinophil pct 0.9 % [facility] Comment: Interpretive Data Percent [...] 2017. Blood specimen (specimen) 06/28/2019 5:02 PM HOSE HANDLER 06/28/2019 5:38 PM HOSE HANDLER us Holly Monzon MD LAB BLOOD ORDERABLES Final R esult [facility] Department [place] [address] * VerifyNow aspirin (06/28/2019 5:02 PM HOSE HANDLER) [employer]Now aspirin [address] [facility] Comment: Interpretive Data Reference interval from adults [...] 2017. Blood specimen (specimen) 06/28/2019 5:02 PM HOSE HANDLER 06/28/2019 7:03 PM HOSE HANDLER Narrative [facility] - 06/28/2019 7:43 PM HOSE HANDLER THE COLLECTION LOCATION IS [address] Holly Monzon MD LAB BLOOD ORDERABLES Final R esult Performing Organization Address [facility] Co de Phone Number [facility] [place] [address] * aPTT (06/28/2019 5:02 PM HOSE HANDLER) aPTT 25 25 - 37 sec [facility] Comment: Code Blue Specimen Interpretive data Heparin therapeutic range: 60-90 seconds Range based on correlation with therapeutic heparin activity range of 0.3-0.7 units/ml. Current interpretive data was last revised on 2019. Blood specimen (specimen) 06/28/2019 5:02 PM HOSE HANDLER 06/28/2019 5:38 PM HOSE HANDLER Narrative [facility] - 06/28/2019 5:53 PM HOSE HANDLER THE COLLECTION LOCATION IS [address] us Holly Monzon MD LAB BLOOD ORDERABLES Edited Result - Final Performing Organization Address [facility] de Phone Number [facility] [place] [employer] [place] [address] * Protime-INR (06/28/2019 5:02 PM HOSE HANDLER) PT 12.1 8.6 - 13.0 sec [facility] Comment:Sarah Blue Specimen INR 1.1 0.8 - 1.2 [facility] Comment: Code Blue Specimen Interpretive data Oral anticoagulant therapeutic ranges: Venous thromboembolism prophylaxis or treatment: 2.0-3.0 CARDIOLOGY Standard range: 2.0-3.0 High-intensity range: 2.5-3.5 Refer to indication-specific guidelines for appropriate target ranges for prosthetic heart valve replacement. Current interpretive data was last revised on 2019. Blood specimen (specimen) 06/28/2019 5:02 PM HOSE HANDLER 06/28/2019 5:38 PM HOSE HANDLER Narrative [facility] - 06/28/2019 5:53 PM HOSE HANDLER THE BJ COLLECTION LOCATION IS [address] Holly Monzon MD LAB BLOOD ORDERABLES Edited Result - Final Performing Organization Address [facility] Co de Phone Number [facility] [place] [address] * Type and screen (06/28/2019 5:02 PM HOSE HANDLER) Pathologist [facility] [place], indirect Negative [facility] Blood specimen (specimen) 06/28/2019 5:02 PM HOSE HANDLER 06/28/2019 5:41 PM HOSE HANDLER Narrative [facility] - 06/28/2019 6:23 PM HOSE HANDLER Has the patient had Daratumumab (Darzalex) in the past 6 months?->Unknown THE BJ COLLECTION LOCATION IS [address] us Holly Monzon MD LAB BLOOD BANK TEST ORDERABL ES Final Result Performing Organization Address [facility] de Phone Number [facility] [place] [address] * (ABNORMAL) Comprehensive metabolic panel (06/28/2019 5:02 PM HOSE HANDLER) Pathologist [facility] Sodium 141 135 - 145 mmol/L [facility] Comment:Code Blue Specimen Potassium, pl 6.9(C) 3.3 - 4.9 mmol/L [facility] Comment:Code Blue Specimen Chloride 103 97 - 110 mmol/L [facility] Comment:Code Blue Specimen CO2 29 22 - 32 mmol/L [facility] Comment:Code Blue Specimen Anion gap 9 2 - 15 mmol/L [facility] Comment:Code Blue Specimen BUN 38(H) 8 - 25 mg/dL [facility] Comment:Code Blue Specimen Creatinine 1.50(H) 0.60 - 1.10 mg/dL [facility] Comment:Code Blue Specimen Glucose 211(H) 70 - 199 mg/dL [facility] Comment: Code Blue Specimen Interpretive Data Fasting [...] 2017. Calcium 8.8 8.5 - 10.3 mg/dL [facility] Comment:Code Blue Specimen Bilirubin, total 0.2 0.1 - 1.2 mg/dL [facility] Comment:Code Blue Specimen Protein, pl 6.2(L) 6.5 - 8.5 g/dL [facility] Comment:Code Blue Specimen Albumin 3.6 3.5 - 5.0 g/dL [facility] Comment:Code Blue Specimen Alk phos 77 40 - 130 Units/L [facility] Comment:Code Blue Specimen ALT 41 7 - 45 Units/L [facility] Comment:Code Blue Specimen AST 43 10 - 45 Units/L [facility] Comment:Code Blue Specimen Blood specimen (specimen) 06/28/2019 5:02 PM HOSE HANDLER 06/28/2019 5:38 PM HOSE HANDLER Narrative [facility] - 06/28/2019 6:06 PM HOSE HANDLER THE BJ COLLECTION LOCATION IS [address] us Holly Monzon MD LAB BLOOD ORDERABLES Edited Result - Final [facility] Department [place] [address] * (ABNORMAL) CBC with auto differential (06/28/2019 5:02 PM HOSE HANDLER) WBC 6.7 3.8 - 9.9 K/cumm [facility] Comment:Code Blue Specimen Hgb 9.0(L) 11.9 - 15.5 g/dL [facility] Hct 24.2(L) 35.6 - 45.5 % [facility] Plt 195 150 - 400 K/cumm [facility] MPV 11.1 9.1 - 12.3 fL [facility] RBC 2.57(L) 3.90 - 5.20 M/cumm [facility] MCV 94.2 81.3 - 96.4 fL [facility] MCH 35.0(H) 27.1 - 33.3 pg [facility] MCHC 37.2(H) 32.3 - 35.7 g/dL [facility] RDW CV 26.7(H) 11.1 - 14.9 % [facility] RDW SD 69.5(H) 35.7 - 48.1 fL [facility] NRBC abs 0.04(H) 0.00 - 0.01 K/cumm [facility] Blood specimen (specimen) 06/28/2019 5:02 PM HOSE HANDLER 06/28/2019 5:38 PM HOSE HANDLER Narrative [facility] - 06/28/2019 5:44 PM HOSE HANDLER THE BJ COLLECTION LOCATION IS [address] us Holly Monzon MD LAB BLOOD ORDERABLES Final R esult Performing Organization Address City/State/[facility] Co de Phone Number [facility] Department [place] [address] documented in this encounter Visit Diagnoses Diagnosis [...] Syncope due to sick sinus syndrome (CMS/HCC) ([facility]) Type III open displaced comminuted fracture of shaft of left tibia, initial encounter documented in this encounter Admitting Diagnoses Diagnosis Open displaced comminuted fracture of shaft of left tibia, type IIIA, IIIB, or IIIC documented in this encounter Administered Medications Inactive Administered Medications - up to 3 most recent administrations Medication Order MAR Action Action Date Dose Rate Site acetaminophen (TYLENOL) tablet 1,000 mg 1,000 mg, oral, Every 6 hours scheduled, First dose on Wed07/01/19 at 1200 Given 07/06/2019 12:11 PM HOSE HANDLER 1,000 mg Given 07/06/2019 6:45 AM HOSE HANDLER 1,000 mg Given 07/05/2019 11:10 PM HOSE HANDLER 1,000 mg albuterol HFA (PROVENTIL HFA,VENTOLIN HFA,PROAIR HFA) 90 mcg/actuation inhaler 2 puff 2 puff, inhalation, Every 6 hours PRN (incident response consultant), wheezing, Starting on Wed06/29/19 at 0003 atorvastatin (LIPITOR) tablet 10 mg 10 mg, oral, Nightly, First dose (after last modification) on Wed07/01/19 at 2100 Given 07/05/2019 9:46 PM HOSE HANDLER 10 mg Given 07/04/2019 9:10 PM HOSE HANDLER 10 mg Given 07/03/2019 9:52 PM HOSE HANDLER 10 mg baclofen (LIORESAL) tablet 2.5 mg 2.5 mg, oral, 3 times daily with meals, First dose (after last modification) on Wed07/04/19 at 0800 Given 07/06/2019 12:11 PM HOSE HANDLER 2.5 mg Given 07/06/2019 8:23 AM HOSE HANDLER 2.5 mg Given 07/05/2019 6:42 PM HOSE HANDLER 2.5 mg calcium carbonate (TUMS) chewable tablet 1,000 mg 1,000 mg (400 mg of elemental calcium), oral, Daily, First dose on Wed07/03/19 at 0900 Given 07/06/2019 8:24 AM HOSE HANDLER 1,000 mg Given 07/05/2019 9:37 AM HOSE HANDLER 1,000 mg Given 07/04/2019 8:30 AM HOSE HANDLER 1,000 mg cyclobenzaprine (FLEXERIL) tablet 10 mg 10 mg, oral, 3 times daily, First dose (after last modification) on Wed07/01/19 at 1600 Given 07/06/2019 3:26 PM HOSE HANDLER 10 mg Given 07/06/2019 8:23 AM HOSE HANDLER 10 mg Given 07/05/2019 9:46 PM HOSE HANDLER 10 mg docusate sodium (DOK) tablet 100 mg 100 mg, oral, 2 times daily, First dose on Wed07/01/19 at 2100, Indications: constipationIndications:constipation Given 07/05/2019 9:46 PM HOSE HANDLER 100 mg Given 07/05/2019 9:37 AM HOSE HANDLER 100 mg Given 07/04/2019 9:09 PM HOSE HANDLER 100 mg enoxaparin (LOVENOX) syringe 40 mg 40 mg, subcutaneous, Every 12 hours scheduled, First dose on 07/01/19 at 0900, Indications: Deep Vein Thrombosis PreventionIndications:Deep Vein Thrombosis Prevention Given 07/06/2019 8:24 AM HOSE HANDLER 40 mg Left Lower Abdomen Given 07/05/2019 9:46 PM HOSE HANDLER 40 mg Le ft Lower Abdomen Given 07/05/2019 9:37 AM HOSE HANDLER 40 mg Le ft Lower Abdomen furosemide (LASIX) tablet 40 mg 40 mg, oral, 2 times daily (for diuretics), First dose (after last modification) on 07/03/19 at 1600 Given 07/06/2019 3:27 PM HOSE HANDLER 40 mg Given 07/06/2019 8:24 AM HOSE HANDLER 40 mg Given 07/05/2019 4:00 PM HOSE HANDLER 40 mg gabapentin (NEURONTIN) capsule 400 mg 400 mg, oral, Every 8 hours, First dose (after last modification) on 07/01/19 at 1800 Given 07/06/2019 10:28 AM HOSE HANDLER 400 mg Given 07/06/2019 2:13 AM HOSE HANDLER 400 mg Given 07/05/2019 6:43 PM HOSE HANDLER 400 mg metoprolol (LOPRESSOR) tablet 25 mg 25 mg, oral, Every 6 hours scheduled, First dose (after last modification) on 07/01/19 at 1045 Given 07/06/2019 12:11 PM HOSE HANDLER 25 mg Given 07/06/2019 6:46 AM HOSE HANDLER 25 mg Given 07/05/2019 11:10 PM HOSE HANDLER 25 mg oxyCODONE (ROXICODONE) tablet 10 mg 10 mg, oral, Every 4 hours PRN, 2nd line for pain, Starting on 07/01/19 at 1051, Indications: PainIndications:Pain Given 07/06/2019 3:26 PM HOSE HANDLER 10 mg Given 07/06/2019 10:28 AM HOSE HANDLER 10 mg Given 07/06/2019 6:45 AM HOSE HANDLER [address] (PROTONIX) extended release tablet 40 mg 40 mg, oral, Daily, First dose on [place] 07/02/19 at 0900, Do not crush, chew, cut, dissolve, open or otherwise manipulate tablet/capsule., Indications: Treatment of Non-Bleeding Gastric DisorderIndications:Treatment of Non-Bleeding Gastric Disorder Given 07/06/2019 8:23 AM HOSE HANDLER 40 mg Given 07/05/2019 9:37 AM HOSE HANDLER 40 mg Given 07/04/2019 8:30 AM HOSE HANDLER 40 mg polyethylene glycol (MIRALAX) packet 17 g 17 g, oral, Daily, First dose (after last modification) on 07/01/19 at 0900, Indications: constipationIndications:constipation Given 07/01/2019 8:14 AM HOSE HANDLER 17 g primidone (MYSOLINE) tablet 50 mg 50 mg, oral, 2 times daily, First dose (after last modification) on 07/01/19 at 0900 Given 07/06/2019 8:23 AM HOSE HANDLER 50 mg Given 07/05/2019 9:46 PM HOSE HANDLER 50 mg Given 07/05/2019 9:39 AM HOSE HANDLER 50 mg senna (SENOKOT) tablet 1 tablet 1 tablet, oral, 2 times daily, First dose on 07/01/19 at 2100 Given 07/05/2019 9:46 PM HOSE HANDLER 1 tablet Given 07/05/2019 9:37 AM HOSE HANDLER 1 tablet Given 07/04/2019 9:09 PM HOSE HANDLER 1 tablet sodium chloride 0.9 % irrigation As needed, Starting on Wed06/30/19 at 1421, Intra-Op Given 06/30/2019 2:21 PM HOSE HANDLER 1,000 mL Surgical Site tobramycin (NEBCIN) topical irrigation As needed, Starting on Wed06/30/19 at 1409, Intra-Op Given 06/30/2019 2:09 PM HOSE HANDLER 1,200 mg Surgical Site vancomycin (VANCOCIN) solution As needed, Starting on Wed06/30/19 at 1409, Intra-Op Given 06/30/2019 2:09 PM HOSE HANDLER 1,000 mg Surgical Site documented in this encounter Discontinued Medications Medication [...] Recently Administered Medications Times are shown in HOSE HANDLER. Scheduled Medication Order 07/04/2019 07/05/2019 07/06/2019 acetaminophen (TYLENOL) tablet 1,000 mg 1,000 mg, oral, Every 6 hours scheduled, First dose on 07/01/19 at 1200 0510 (Not Given - Provider: Sharon Silva RN - Reason: Order parameters not met)1149 (Given - Provider: Belia Castañeda)1700 (Given - Provider: Belia Castañeda) 0053 (Given - Provider: Deepika Zaman RN)0609 (Given - Provider: Deepika Zaman RN)1137 (Not Given - Provider: Glory Brenner RN - Reason: Contraindicated)1842 (Given - Provider: Glory Brenner RN)2310 (Given - Provider: Deepika Zaman RN) 0645 (Given - Provider: Deepika Zaman RN)1211 (Given - Provider: Mary Lemus, DARCI) atorvastatin (LIPITOR) tablet 10 mg 10 mg, oral, Nightly, First dose (after last modification) on 07/01/19 at 2100 2110 (Given - Provider: Deepika Zaman RN) 2146 (Given - Provider: Deepika Zaman RN) baclofen (LIORESAL) tablet 2.5 mg 2.5 mg, oral, 3 times daily with meals, First dose (after last modification) on Wed07/04/19 at 0800 0830 (Given - Provider: Belia Castañeda)1150 (Given - Provider: Belia Castañeda)1701 (Given - Provider: Belia Castañeda) 0940 (Given - Provider: Glory Brenner RN)1136 (Given - Provider: Glory Brenner RN)1842 (Given - Provider: Glory Brenner RN) 0823 (Given - Provider: Mary Lemus RN)1211 (Given - Provider: Mary Lemus RN) calcium carbonate (TUMS) chewable tablet 1,000 mg 1,000 mg (400 mg of elemental calcium), oral, Daily, First dose on Wed07/03/19 at 0900 0830 (Given - Provider: Belia Castañeda) 0937 (Given - Provider: Glory Brenner, DARCI) 0824 (Given - Provider: Mary Lemus RN) cyclobenzaprine (FLEXERIL) tablet 10 mg 10 mg, oral, 3 times daily, First dose (after last modification) on 07/01/19 at 1600 0830 (Given - Provider: Belia Castañeda)1659 (Given - Provider: Belia Castañeda)2109 (Given - Provider: Deepika Zaman RN) 0939 (Given - Provider: Glory Brenner RN)1600 (Given - Provider: Glory Brenner, DARCI)2146 (Given - Provider: Deepika Zaman RN) 0823 (Given - Provider: Mary Lemus RN)1526 (Given - Provider: Mary Lemus RN) docusate sodium (DOK) tablet 100 mg 100 mg, oral, 2 times daily, First dose on 07/01/19 at 2100, Indications: constipation 0830 (Given - Provider: Belia Castañeda)2109 (Given - Provider: Deepika Zaman RN) 0937 (Given - Provider: Glory Brenner, DARCI)2146 (Given - Provider: Deepika Zaman, DARCI) 0820 (Not Given - Provider: Mary Lemus RN - Reason: Order parameters not met - Comment: Pt having liquid BMs) enoxaparin (LOVENOX) syringe 40 mg 40 mg, subcutaneous, Every 12 hours scheduled, First dose on 07/01/19 at 0900, Indications: Deep Vein Thrombosis Prevention 0832 (Given - Provider: Belia Castañeda)2111 (Given - Provider: Deepika Zaman RN) 0937 (Given - Provider: Glory Brenner, DARCI)2146 (Given - Provider: Deepika Zaman RN) 0824 (Given - Provider: Mary Lemus RN) furosemide (LASIX) tablet 40 mg 40 mg, oral, 2 times daily (for diuretics), First dose (after last modification) on Wed07/03/19 at 1600 0830 (Given - Provider: Belia Castañeda)1659 (Given - Provider: Belia Castañeda) 0900 (Given - Provider: Glory Brenner, DARCI)1600 (Given - Provider: Glory Brenenr RN) 0824 (Given - Provider: Mary Lemus RN)1527 (Given - Provider: Mary Lemus RN) gabapentin (NEURONTIN) capsule 400 mg 400 mg, oral, Every 8 hours, First dose (after last modification) on 07/01/19 at 1800 0216 (Given - Provider: Brooke Avalos RN)1044 (Given - Provider: Belia Castañeda)1659 (Given - Provider: Belia Castañeda) 0052 (Given - Provider: Deepika Zaman RN)1000 (Given - Provider: Glory Brenner RN)1843 (Given - Provider: Glory Brenner RN) 0213 (Given - Provider: Deepika Zaman, DARCI)1028 (Given - Provider: Mary Lemus RN) magnesium citrate oral solution 296 mL (COMPLETED) 296 mL, oral, Once, On Wed07/05/19 at 1015, For 1 dose 1134 (Given - Provider: Glory Brenner, DARCI) metoprolol (LOPRESSOR) tablet 25 mg 25 mg, oral, Every 6 hours scheduled, First dose (after last modification) on 07/01/19 at 1045 0502 (Given - Provider: Brooke Avalos RN)1149 (Given - Provider: Belia Castañeda)1700 (Given - Provider: Belia Castañeda) 0053 (Given - Provider: Deepika Zaman RN)0609 (Given - Provider: Deepika Zaman RN)1134 (Given - Provider: Glory Brenner RN)1843 (Given - Provider: Glory Brenner RN)2310 (Given - Provider: Deepika Zaman, DARCI) 0646 (Given - Provider: Deepika Zaman RN)1211 (Given - Provider: Mary Lemus, DARCI) pantoprazole DR (PROTONIX) extended release tablet 40 mg 40 mg, oral, Daily, First dose on 07/02/19 at 0900, Do not crush, chew, cut, dissolve, open or otherwise manipulate tablet/capsule., Indications: Treatment of Non-Bleeding Gastric Disorder 0830 (Given - Provider: Belia Castañeda) 0937 (Given - Provider: Glory Brenner RN) 0823 (Given - Provider: Mary Lemus RN) polyethylene glycol (MIRALAX) packet 17 g 17 g, oral, Daily, First dose (after last modification) on 07/01/19 at 0900, Indications: constipation 0906 (Not Given - Provider: Belia Castañeda - Reason: Patient/family refused) 1138 (Not Given - Provider: lGory Brenner RN - Reason: Patient/family refused) 0820 [...] RN) 0939 (Given - Provider: Glory Brenner, DARCI)2146 (Given - Provider: Deepika Zaman, DARCI) 0823 (Given - Provider: Mary Lemus, DARCI) senna (SENOKOT) tablet 1 tablet 1 tablet, oral, 2 times daily, First dose on 07/01/19 at 2100 0830 (Given - Provider: Belia Castañeda)210 (Given - Provider: Deepika Zaman, DARCI) 0937 [...] inhalation, Every 6 hours PRN (incident response consultant), wheezing, Starting on [place] 06/29/19 at 0003 oxyCODONE (ROXICODONE) tablet 10 mg 10 mg, oral, Every 4 hours PRN, 2nd line for pain, Starting on 07/01/19 at 1051, Indications: Pain 0510 (Given - Provider: Sharon Silva RN)1051 (Given - Provider: Belia Castañeda)1701 (Given - Provider: Belia Castañeda)2109 (Given - Provider: Deepika Zaman, DARCI) 0609 (Given - Provider: Deepika Zaman RN)1142 (Given - Provider: Glory Brenner, DARCI)1843 (Given - Provider: Glory Brenner RN)2310 (Given - Provider: Deepika Zaman, DARCI) 0645 (Given - Provider: Deepika Zaman RN)1028 (Given - Provider: Mary Lemus, DARCI)1526 (Given - Provider: Mary Lemus RN) documented in this encounter Orders Medications Ordered That Thomas ht Not Have Been Administered Count Last Ordered Date First Ordered Date magnesium citrate oral solution 296 mL 1 baclofen (LIORESAL) tablet 2.5 mg 2 019 calcium carbonate (TUMS) fatimah wable tablet 1,000 mg 1 07/03/2019 furosemide (LASIX) tablet 40 mg 1 9 ondansetron ODT (ZOFRAN-ODT) disintegrating tablet 4 mg 1 07/03/2019 furosemide (LASIX) tablet 20 mg 1 9 acetaminophen (TYLENOL) 32 m g/mL oral solution 1,000 mg 2 07/01/2019 06/29/2019 acetaminophen (TYLENOL) tablet 1,000 mg 1 1 09/01/2018 atorvastatin (LIPITOR) tablet 10 mg 2 07/0106/29/2019 baclofen (LIORESAL) tablet 5 mg 1 9 calcium carbonate (OS-MAGNUS) tablet 2,500 mg 2 07/01/2019 cyclobenzaprine (FLEXERIL) tablet 10 mg 1 1 09/01/2018 cyclobenzaprine (FLEXERIL) tablet 5 mg 2 06/30/2019 diphenhydrAMINE (BENADRYL) tab/cap 25 mg 1 07/01/2019 docusate (COLACE) 10 mg/mL o ral liquid 100 mg 2 07/01/2019 06/29/2019 docusate sodium (DOK) tablet 100 mg 1 07/01 enoxaparin (LOVENOX) syringe 40 mg 2 201806/29/[address] (NexIUM) ext ended release oral suspension 40 mg 2 07/01/2019 06/29/2019 gabapentin (NEURONTIN) 50 mg /mL oral solution 300 mg 2 07/01/2019 06/30/2019 gabapentin (NEURONTIN) capsule 300 mg 1 01/2019 gabapentin (NEURONTIN) capsule 400 mg 1 01/2019 HYDROmorphone (DILAUDID) injection 0.25 mg 1 07/01/2019 metoprolol (LOPRESSOR) tablet 25 mg 3 07/0106/29/2019 ondansetron (ZOFRAN) injection 4 mg 1 07/01 oxyCODONE (ROXICODONE) 1 mg/ mL oral solution 10 mg 2 07/01/2019 06/30/2019 oxyCODONE (ROXICODONE) tablet 10 mg 1 07/[address] (PROTONIX) e xtended release tablet 40 mg 1 07/01/2019 polyethylene glycol (MIRALAX) packet 17 g 2 07/01/2019 06/29/2019 primidone (MYSOLINE) tablet 50 mg 3 019 06/29/2019 senna (SENOKOT) tablet 1 tablet 1 9 senna 1.76 mg/mL syrup 8.8 mg 2 07/01/2019 06/29/2019 Lactated Ringer's (LR) bolus 500 mL 3 06/3006/29/2019 magnesium sulfate 2 g/50 mL in water (premix) 2 g 1 06/30/2019 metoprolol (LOPRESSOR) injection 5 mg 1 12/2018 sodium chloride 0.9% IVPB 0-250 mL 1 2018 albuterol HFA (PROVENTIL HFA ,VENTOLIN HFA,PROAIR HFA) 90 mcg/actuation inhaler 2 puff 1 06/29/2019 amLODIPine (NORVASC) tablet 10 mg 1 019 chlorhexidine (PERIDEX) 0.12 % solution 15 mL 2 06/29/2019 06/28/2019 dextrose (D10W) 10% bolus 250 mL 2 06/29/20 19 06/28/2019 dextrose (GLUTOSE) 40 % gel 15 g 2 06/29/20 19 06/28/2019 enoxaparin (LOVENOX) syringe 30 mg 2 201806/28/[address] (NexIUM) ext ended release oral suspension 20 mg 1 06/29/2019 fluticasone propion-salmeter ol (ADVAIR DISKUS) 100-50 mcg/dose diskus inhaler 1 puff 1 06/29/2019 glucagon injection 1 mg 2 06/29/201910/2018 insulin lispro (HumaLOG) inj ection 1-3 Units 1 06/29/2019 insulin regular bolus from bag 4-10 Units 2 06/29/2019 06/28/2019 insulin regular bolus from bag 4-6 Units 2 06/29/2019 06/28/2019 Lactated Ringer's (LR) bolus 1,000 mL 1 11/2018 lidocaine (XYLOCAINE) 10 mg/ mL (1 %) injection 50 mg 1 06/29/2019 magnesium oxide (MAG-OX) tablet 800 mg 1 magnesium sulfate 4 g/100 mL in water (premix) 4 g 1 06/29/2019 metoprolol (LOPRESSOR) tablet 50 mg 1 06/29 phenylephrine in 0.9% sodium chloride (MANFRED-SYNEPHRINE) 25,000 mcg/250 mL (100 mcg/mL) infusion (premix) solution 1 06/29/2019 albuterol 2.5 mg/0.5 mL nebu lizer solution 10 mg 1 06/28/2019 calcium chloride 2 g in sodi um chloride 0.9% 100 mL IVPB 1 06/28/2019 ceFAZolin (ANCEF) 2,000 mg/2 0 mL in sterile water (premix) 2,000 mg 1 06/28/2019 dextrose (D10W) 10% bolus 500 mL 1 06/28/20 19 dextrose 5% and Lactated Ringer's infusion 1 06/28/2019 diphenhydrAMINE (BENADRYL) injection 50 mg 1 06/28/2019 etomidate (AMIDATE) injection 20 mg 1 06/28 fentaNYL (SUBLIMAZE) bolus from bag 50 mcg 1 06/28/2019 fentaNYL (SUBLIMAZE) preserv ative free injection 100 mcg 1 06/28/2019 fentaNYL (SUBLIMAZE) preserv ative free injection 25 mcg 1 06/28/2019 fentaNYL (SUBLIMAZE) preserv ative free injection 50 mcg 3 06/28/2019 fentaNYL 2500 mcg/50 mL (50 mcg/mL) infusion (premix) 2 06/28/2019 furosemide (LASIX) 10 mg/mL injection 20 mg 1 06/28/2019 furosemide (LASIX) 10 mg/mL injection 40 mg 1 06/28/2019 gentamicin (GARAMYCIN) 370 m g in sodium chloride 0.9% 37 mL (10 mg/mL) syringe 1 06/28/2019 insulin regular (HumuLIN R, NovoLIN R) injection 10 Units 1 06/28/2019 insulin regular in 0.9% sodi um chloride 100 units/100 mL infusion (premix) 1 06/28/2019 ioversol (OPTIRAY 350) syrin ge syringe 125 mL 1 06/28/2019 naloxone (NARCAN) 0.4 mg/mL injection 0.4 mg 1 06/28/2019 propofol (DIPRIVAN) IV 2 06/28/2019 propofol (DIPRIVAN) IV 50 mg 1 06/28/2019 sodium chloride 0.9 % irrigation 1 06/28/20 19 succinylcholine (ANECTINE) i njection 100 mg 1 06/28/2019 Lab Orders Without Results [...] 06/28/2019 documented in this encounter Care Teams Adult Education Manager Relationship Specialty Start Date End Date Bernardo Edwards MD [address] [place] [address] PCP - General 06/14/19 07/04/20 documented as of this encounter
--- OUTSIDE RECORDS SUMMARY | 2024-08-13 05:02 | XMS_ITS | Encounter Summary ---
Author Organization [facility] Healthcare Address [address] [place] [address] Care Team Providers Care Etcher Photoengraving Name Role Phone Bernardo Edwards MD Primary Care Provider [phone] Encounter Details Date Type Department Care Team (Late st Contact Info) Description 06/30/2019 1:06 PM TRUCK AND TRANSPORT MECHANIC Anesthesia Event [facility] Operating Room [address] [place] [address] Rui Mike MD [address] [place] [address] Nikki Hoover NP [address] [facility] [id number] [place] [address] Anesthesia Record Procedure Summary Procedure Name Responsible Anesthesiologist Anesthesia Start Time Anesthesia Stop Time IRRIGATION AND DEBRIDEMENT ? TIBIA (Left: Leg Lower) Rui Mike MD 06/30/19 1306 06/30/19 1556 Events Date Time Event Comment 06/30/2019 1304 In Room 1306 An Start 1306 An Start Data 1325 Anesthesia Ready 1335 Proc Start 1336 Incision Start 1356 Quick Note A line continui ng to dampen despite flushing and repositioning. Initiating NIBP. 1525 Proc Fin 1540 Out of Room 1556 Handoff to RN I completed my handoff [...] Patient disposition at the time of handoff: ICU 1556 An Stop Meds Name Total fentaNYL 100 mcg phenylephrine 100 mcg/mL 200 mcg HYDROmorphone 2 mg/mL 2 mg ceFAZolin 2,000 mg ondansetron PF (ZOFRAN) 2 mg/mL injectio n 4 mg phenylephrine infusion (100 mcg/mL) 0.44 mg calcium chloride 0.5 g propofol (DIPRIVAN) IV 99.98 mg NS 0.9% 500 mL dextrose 5% and Lactated Ringer's infusi on 0 mL * Agents Name O2% N2O O2 Air Sevoflurane Inspired Sevoflurane * Blood Name Total PRBC - CROSSMATCHED 350 mL Lines, Drains, and Airways Type Details Placement Removal NG/OG Tube Placement Date: 06/28/19; Type: Orogastric; Location: Left mouth; Removal Date: 07/01/19; Removal Time: 629; Removal Reason: Per order 06/28/19 0000 by Selena Romeo RN 07/01/19 0630 by Luz Espitia, DARCI ETT Placement Date: 06/28/19; Placement Time: 1730; Mask Ventilation: 0; Technique: Direct laryngoscopy; Type: ETT - single; Single Lumen Tube Size: 7.5 mm; Cuffed: Yes; Laryngoscope: Cherry; Location: Oral; Insertion Attempts: 1; Placement Verification: Auscultation, Capnometry; Placed By: Resident ; Removal Date: 07/01/19; Removal Time: 0506/28/19 173 by Hilda Saenz RRT 07/01/19 05 by Huang Cornelius, MICHAEL Urethral Catheter Placement Date: 06/28/19; Placement Time: 1904; Type: Temperature probe, Double-lumen; Size: 16 Fr.; Balloon Size: 10 mL; Urine Returned: Yes; Removal Date: 07/02/19; Removal Time: 1656; Removal Reason: Per order 06/28/19 1905 by Yoseph Noble, DARCI 07/02/191656 by Mary Lemus RN RETIRED Surgical Site 06/28/19; 2255; Le ft; Leg; 07/08/20; 1200 06/28/19 2255 by Malena Lara RN 07/08/20 1200 by Bernardo Burgess RN RETIRED Negative Pressure Wound Therapy 06/28/19; 2259; Surgical team; Acute/traumatic, Surgical incision; Left; Leg; 06/30/19; 1300 06/28/19 2259 by Malena Lara RN 06/30/19 1300 by Mary Siu RN RETIRED Wound 06/29/19; 0000; MASD (Moisture associated skin damage); Left; Breast; linear redness/excoriation under breast; 06/27/24 (Retired LDA, Removed/Completed by [facility] with LDA Utility); 1213 (Retired LDA, Removed/Completed by [facility] with LDA Utility) 06/29/19 0000 by Lizette Dutton RN 06/27/24 1213 by Discharge Provider, Automatic RETIRED Surgical Site 06/29/19; 0000; No ; Right, Lower; Ankle/malleolus; 06/27/24 (Retired LDA, Removed/Completed by [facility] with LDA Utility); 1213 (Retired LDA, Removed/Completed by [facility] with LDA Utility) 06/29/19 0000 by Lizette Dutton RN 06/27/24 1213 by Discharge Provider, Automatic Peripheral IV Placement Date: 06/29/19; Placement Time: 0200; Catheter Size: 18 G; Orientation: Right; Location: Forearm; Site Prep: Chlorhexidine; Removal Date: 07/01/19; Removal Time: 1607 (removed prior to shift) 06/29/19 0200 by Lizette Dutton RN 07/01/19 1607 by Flower Mitchell RN Peripheral IV Placement Date: 06/29/19; Placement Time: 0200; Change Due: 07/28/19; Catheter Size: 20 G; Orientation: Anterior, Distal, Right, Upper; Location: Arm; Removal Date: 07/06/19; Removal Time: 1529; Removal Reason: Per order 06/29/19 0200 by Lizette Dutton RN 07/06/19 1529 by Mary Lemus RN Arterial Line Placement Date: 06/29/19; Placemnt Time: 544; Size: 20 G; Orientation: Left; Location: Radial; Site Prep: Chlorhexidine; Technique: Ultrasound guidance; Inserted by: Abbie Copeland MD; Insertion Attempts: 4; Securement: Sutured, Transparent dressing; Patient Tolerance: Tolerated well; Removal Date: 06/30/19; Removal Time: 170; Removal Reason: Occluded 06/29/19 0545 by Lizette Dutton RN 06/30/19 1700 by Lizette Dutton RN RETIRED Surgical Site 06/30/19; 1410; Ri ght; Ankle/malleolus; 06/30/19; 1430 06/30/19 1410 by Ryan Carranza RN 06/30/19 1430 by Mary Siu, DARCI RETIRED Negative Pressure Wound Therapy 06/30/19; 1536; Dr. Shoemaker; Surgical incision; Left; Leg; 06/30/19; 1600 06/30/19 1536 by Ryan Carranza RN 06/30/19 1600 by Mary Siu, DARCI documented in this encounter Social History Tobacco [...] OR Notes * Anesthesia Postprocedure Evaluation - Rui Mike MD - 06/30/2019 4:05 PM CST Patient: Celestina Ewing Procedure Summary Date: 06/30/19 Room / Location: [facility] OR POD 2 ROOM [facility] [place] / [facility] OR POD 2 Anesthesia Start: 1306 Anesthesia Stop: 1556 Procedures: IRRIGATION AND DEBRIDEMENT - TIBIA (Left Leg Lower) OPEN REDUCTION INTERNAL FIXATION TIBIA - PROXIMAL - SYNTHES (Left Leg Lower) OPEN REDUCTION INTERNAL FIXATION - ANKLE (Right Ankle) Diagnosis: Type III open displaced comminuted fracture of shaft of left tibia, initial encounter (Type III open displaced comminuted fracture of shaft of left tibia, initial encounter [S82.252C]) Surgeon: Jacobo Shoemaker MD Responsible Provider: Rui Mike MD Anesthesia Type: general ASA Status: 3 Anesthesia Type: general Last vitals BP 129/51 (BP Location: Left arm, Patient Position: Lying) Pulse 106 Temp 37.1 ??C (98.8 ??F) (Oral) Resp 24 SpO2 96% Anesthesia Post Evaluation Patient location during evaluation: PACU Patient participation: complete - patient participated Level of consciousness: fully awake Pain management: satisfactory to patient Airway patency: patent Anesthetic complications: no Cardiovascular status: hemodynamically stable Respiratory status: room air Hydration status: acceptable Pt is: normothermic Nausea/Vomiting status: none K AND TRANSPORT MECHANIC * Anesthesia Preprocedure Evaluation - Rui Mike MD - 06/30/2019 9:14 AM CST Images from the original note were not included. [facility] for Preoperative Assessment and Planning Preoperative Evaluation Record Evaluation type/location: IPAP at [facility] (Pod[facility] 2[facility]3/5/[facility]) Date: 06/30/19 Anesthesia Evaluation Celestina Ewing [...] is currently intubated: VC/AC with rate=22, 40%, FH=318, peep=5 Has fentanyl at 50mcg infusion and [...] PM zofran bisacodyl Current Facility-Administered Medications: ??? acetaminophen (TYLENOL) [...] 15 mL, mouth/throat, BID, 15 mL at 06/30/19 09 ??? dextrose 5% and Lactated Ringer's infusion, 25 mL/hr, intravenous, Continuous, Last Rate: 25 mL/hr at 06/29/19 1900, 25 mL/hr at 06/29/19 190 ??? docusate (COLACE) 10 mg/mL oral liquid 100 mg, 100 mg, feeding tube, BID, 100 mg at 06/30/19 0856 ??? esomeprazole DR (NexIUM) extended release oral suspension 40 mg, 40 mg, feeding tube, Daily, 40mg at 06/30/19 09 ??? fentaNYL (SUBLIMAZE) bolus from bag 50 [...] at 06/30/19 0825, 25 mcg/kg/min at 06/30/19 08 ??? senna 1.76 mg/mL syrup 8.8 mg, [...] 06/29/2019: 22 mg/dL Creatinine: 06/29/2019: 1.14 mg/dL* DOS Physical Exam Medical history, medications, and allergies reviewed. Attestation: This PAT evaluation Airway Exam: Mallampati: intubated Cardiovascular Exam: Rate: regular Rhythm: regular Negative for Murmur No extra heart sounds appreciated Pulmonary Exam: LCTA Skin Exam: Skin is warm. Capillary refill is < 3 seconds. Current state: Patient's current state is responds to voice. Additional comments: Easy ventilation. Fi02: 0.4 Anesthesia Plan ASA 3 My patient is approved for the Anesthesia Controlled Medication protocol when under care of a TEACHER AIDE Planned anesthesia: General Team communication plan: oral ET tube Induction: Induction: intravenous. Postoperative Plan: Postoperative administration opioids intended. Postoperative mechanical ventilation intended. Patient's planned disposition post procedure is ICU. No trial extubation planned. Informed Consent: Discussed plan with TEACHER AIDE. Anesthesia plan and risks discussed with not discussed. Consent and Attending signature: I and/or my designee have discussed the anesthesia plan, benefits, possible alternatives, parental presence at time of induction (if indicated), and clinically relevant risks that may include dental injury, unintentional awareness, and/or other complications. The patient and/or parent/legal guardian understand, and agree to proceed. All questions answered. K AND TRANSPORT MECHANIC K AND TRANSPORT MECHANIC K AND TRANSPORT MECHANIC documented in this encounter Plan of Treatment Not on file documented as of this encounter Visit Diagnoses Not on filedocumented in this encounter Administered Medications Inactive Administered Medications - up to 3 most recent administrations Medication Order MAR Action Action Date Dose Rate Site calcium chloride IV syringe As needed, Starting on Wed06/30/19 at 1310, Anesthesia Intra-op Given 06/30/2019 1:10 PM TRUCK AND TRANSPORT MECHANIC 0.5 g ceFAZolin (ANCEF) injection intravenous, As needed, Starting on Wed06/30/19 at 1325, Anesthesia Intra-op Given 06/30/2019 1:25 PM TRUCK AND TRANSPORT MECHANIC 2,000 mg dextrose 5% and Lactated Ringer's infusion 25 mL/hr, intravenous, Continuous, Starting on Mercedes 06/29/19 at 0030 Rate/Dose Verify 07/01/2019 10:00 AM TRUCK AND TRANSPORT MECHANIC 25 mL/hr 25 mL/hr Rate/Dose Verify 07/01/2019 9:00 AM TRUCK AND TRANSPORT MECHANIC 25 mL/hr 25 mL/h r Rate/Dose Verify 07/01/2019 8:00 AM TRUCK AND TRANSPORT MECHANIC 25 mL/hr 25 mL/h r fentaNYL (SUBLIMAZE) preservative free injection intravenous, As needed, Starting on Wed06/30/19 at 1336, Anesthesia Intra-op Given 06/30/2019 1:36 PM TRUCK AND TRANSPORT MECHANIC 50 mcg Given 06/30/2019 1:26 PM TRUCK AND TRANSPORT MECHANIC 50 mcg HYDROmorphone (DILAUDID) injection intravenous, Administer over 2 Minutes, As needed, Starting on Wed06/30/19 at 1430, Anesthesia Intra-op Given 06/30/2019 3:03 PM TRUCK AND TRANSPORT MECHANIC 1 mg Given 06/30/2019 2:30 PM TRUCK AND TRANSPORT MECHANIC 1 mg ondansetron (ZOFRAN) injection Administer over 2 Minutes, As needed, Starting on Wed06/30/19 at 1351, Anesthesia Intra-op Given 06/30/2019 1:51 PM TRUCK AND TRANSPORT MECHANIC 4 mg phenylephrine (GUERITA-SYNEPHRINE) 0.5 mg/5 mL (100 mcg/mL) in sodium chloride 0.9% (premix) intravenous, As needed, Starting on Wed06/30/19 at 1518, Anesthesia Intra-op Given 06/30/2019 3:18 PM TRUCK AND TRANSPORT MECHANIC 200 mcg phenylephrine (GUERITA-SYNEPHRINE) 5 mg/50 mL (100 mcg/mL) in sodium chloride 0.9% (premix) Continuous PRN, Starting on Wed06/30/19 at 1408, Anesthesia Intra-op New Bag 06/30/2019 2:08 PM TRUCK AND TRANSPORT MECHANIC 0.3 mcg/kg/min 20.5 mL/hr propofol (DIPRIVAN) IV 5-50 mcg/kg/min ? [...] only, RoutineIndications:Sedat ion in Intubated Patients Rate/Dose Change 07/01/2019 3:39 AM TRUCK AND TRANSPORT MECHANIC 20 mcg/kg/min 12.9 mL/hr Rate/Dose Verify 07/01/2019 3:38 AM TRUCK AND TRANSPORT MECHANIC 25 mcg/kg/min 16.1 3 mL/hr Rate/Dose Verify 07/01/2019 2:00 AM TRUCK AND TRANSPORT MECHANIC 25 mcg/kg/min 16.1 3 mL/hr sodium chloride 0.9% infusion Continuous PRN, Starting on Wed06/30/19 at 1312, Anesthesia Intra-op New Bag 06/30/2019 1:12 PM TRUCK AND TRANSPORT MECHANIC Transfuse RBC Timed New Bag 06/30/2019 2:13 PM TRUCK AND TRANSPORT MECHANIC documented in this encounter Care Teams Etcher Photoengraving Relationship Specialty Start Date End Date Bernardo Edwards MD [address] [place] [address] PCP - General 06/14/19 07/04/20 documented as of this encounter
--- OUTSIDE RECORDS SUMMARY | 2024-08-13 05:02 | XMS_ITS | Encounter Summary ---
Author Organization [facility] Healthcare Address [address] [facility] [place] [address] Care Team Providers Care Children'S Court Magistrate Name Role Phone Bernardo Edwards MD Primary Care Provider [phone] Encounter Details Date Type Department Care Team (Late st Contact Info) Description 06/28/2019 9:00 PM SECOND CUTTER Anesthesia Event [facility] Operating Room [address] [place] [address] Cas Reid MD [address] [facility] [id number] [place] [address] Juan Whiteside CRNA [address] [place] [address] Anesthesia Record Procedure Summary Procedure Name Responsible Anesthesiologist Anesthesia Start Time Anesthesia Stop Time IRRIGATION AND DEBRIDEMENT ? TIBIA (Left: Leg Lower) Cas Reid MD 06/28/19 2100 06/28/19 2338 Events Date Time Event Comment 06/28/20192099 An Start 2111 In Room 4 An Start Data 8 Quick Note tourniquet up- 300 2131 Anesthesia Ready 7 2140 Incision Start 0 Proc Start 2316 Proc Fin 2322 an stop data 2322 Out of Room 2338 Handoff to RN I completed my handoff [...] Patient disposition at the time of handoff: No value filed. 2338 An Stop Meds Name Total phenylephrine 100 mcg/mL 600 mcg ondansetron PF (ZOFRAN) 2 mg/mL injectio n 4 mg propofol (DIPRIVAN) IV 274.13 mg ceFAZolin (ANCEF) 2,000 mg/20 mL in ster ile water (premix) 2,000 mg 2,000 mg dexamethasone 4 mg/mL 4 mg famotidine PF 20 mg phenylephrine infusion (100 mcg/mL) 8.46 mg insulin regular in 0.9% sodium chloride 100 units/100 mL infusion (premix) 3.77 Units insulin regular bolus from bag 4-6 Units 4 Units LR 800 mL D5 1/2 NS 0 mL * Agents Name O2% N2O O2 Air Sevoflurane Inspired Sevoflurane * Blood No blood administrations on file. Lines, Drains, and Airways Type Details Placement Removal Peripheral IV Placement Date: 06/28/19; Existing LDA Placed by: EMS; Catheter Size: 20 G; Orientation: Left; Location: Wrist; Removal Date: 06/29/19; Removal Time: 0000; Removal Reason: Infiltrated 06/28/19 0000 by Selena Romeo RN 06/29/19 0000 by Lizette Dutton RN NG/OG Tube Placement Date: 06/28/19; Type: Orogastric; Location: Left mouth; Removal Date: 07/01/19; Removal Time: 0630; Removal Reason: Per order 06/28/19 0000 by Selena Romeo RN 07/01/19 0630 by Luz Espitia RN Peripheral IV Placement Date: 06/28/19; Placement Time: 1700; Existing LDA Placed by: EMS; Catheter Size: 20 G; Orientation: Right; Location: Wrist; Removal Date: 06/29/19; Removal Time: 0000 06/28/19 1700 by Selena Romeo RN 06/29/19 0000 by Lizette Dutton RN ETT Placement Date: 06/28/19; Placement Time: 173; Mask Ventilation: 0; Technique: Direct laryngoscopy; Type: ETT - single; Single Lumen Tube Size: 7.5 mm; Cuffed: Yes; Laryngoscope: Cherry; Location: Oral; Insertion Attempts: 1; Placement Verification: Auscultation, Capnometry; Placed By: Resident ; Removal Date: 07/01/19; Removal Time: 0506/28/19 173 by Hilda Saenz MEDICAL LABORATORY SCIENTIST 07/01/19 05 by Huang Cornelius, MICHAEL CVC Single Lumen Placement Date: 06/28/19; Placement Time: 173; Orientation: Right; Location: Femoral; Securement: Sutured; Pt Tolerance: Tolerated well; Placement Verification: Blood return, Ultrasound; Removal Date: 06/29/19; Removal Time: 170; Removal Reason: Per order 06/28/19 173 by Selena Romeo RN 06/29/19 1700 by Zulema Lewis RN Urethral Catheter Placement Date: 06/28/19; Placement Time: 190; Type: Temperature probe, Double-lumen; Size: 16 Fr.; Balloon Size: 10 mL; Urine Returned: Yes; Removal Date: 07/02/19; Removal Time: 165; Removal Reason: Per order 06/28/19 1905 by Yoseph Noble RN 07/02/19 165 by Mary Lemus, DARCI RETIRED Surgical Site 06/28/19; 2255; Le ft; Leg; 07/08/20; 1200 06/28/19 2255 by Malena Lara RN 07/08/20 1200 by Bernardo Burgess RN RETIRED Negative Pressure Wound Therapy 06/28/19; 225; Surgical team; Acute/traumatic, Surgical incision; Left; Leg; 06/30/19; 1300 06/28/19 2259 by Malena Lara RN 06/30/19 1300 by Mary Siu, DARCI documented in this [...] OR Notes * Anesthesia Postprocedure Evaluation - Julián Polk MD - 06/28/2019 11:39 PM CST Patient: Celestina Ewing Procedure Summary Date: 06/28/19 Room / Location: [facility] OR POD 2 ROOM 204 / [facility] OR POD 2 Anesthesia Start: 2099 Anesthesia Stop: 2337 Procedures: IRRIGATION AND DEBRIDEMENT - TIBIA (Left Leg Lower) OPEN REDUCTION INTERNAL FIXATION - TIBIA (Left Leg Lower) Diagnosis: Type III open displaced comminuted fracture of shaft of left tibia, initial encounter (Type III open displaced comminuted fracture of shaft of left tibia, initial encounter [S82.252C]) Surgeon: Lo Laura DO Responsible Provider: Cas Reid MD Anesthesia Type: general ASA Status: 3 - Emergent Anesthesia Type: general Last vitals BP 115/67 (BP Location: Left arm, Patient Position: Lying) Pulse 89 Temp 36.1 ??C (97 ??F) (Bladder) Resp 23 SpO2 100% Anesthesia Post Evaluation Patient location during evaluation: ICU Patient participation: complete - patient cannot participate Level of consciousness: unconscious Pain score: unable to evaluate Pain management: adequate Airway patency: adequate Evidence of recall: unable to evaluate Anesthetic complications: no Cardiovascular status: hemodynamically stable Respiratory status: ETT and ventilator Hydration status: euvolemic Pt is: normothermic Nausea/Vomiting status: none and unable to evaluate Comments: Andi PIV noted to potentially be partially infiltrated upon arrival to SICU- suspect more recent development as she has been responding to medication infusions through that line. Cosigned by Cas Reid MD at 06/29/2019 2:11 AM SECOND CUTTER ND CUTTER ND CUTTER * Anesthesia Preprocedure Evaluation - Cas Reid MD - 06/28/2019 9:37 PM CST Images from the original note were not included. Anesthesia Evaluation Pepper Kapil Ewing is a 68 y.o. female Procedure(s): IRRIGATION AND DEBRIDEMENT - TIBIA OPEN REDUCTION INTERNAL FIXATION - TIBIA APPLICATION EXTERNAL FIXATION DEVICE LOWER EXTREMITY Pre-Op Diagnosis Codes: * Type III open displaced comminuted fracture of shaft of left tibia, initial encounter [S82.252C] Patient Active Problem List Diagnosis ??? Bipolar I disorder with anxious distress (CMS/HCC) ??? Intractable seizure disorder (CMS/HCC) ??? Moderate essential hypertension ??? Syncope due to sick sinus syndrome (CMS/HCC) ??? Open displaced comminuted fracture of shaft of left tibia, type IIIA, IIIB, or IIIC History reviewed. No pertinent past medical history. History reviewed. No pertinent surgical history. OB History No obstetric history on file. Allergies Allergen Reactions ??? Iodine Unknown ??? Latex Unknown ??? Other Unknown seafood ??? Sulfa (Sulfonamide Antibiotics) Unknown ??? Valium [Diazepam] Unknown Taking? Last Dose Start Date End Date Provider albuterol HFA (PROVENTIL HFA,VENTOLIN HFA,PROAIR HFA) 90 mcg/actuation inhaler -- -- Historical Provider, amLODIPine (NORVASC) 10 mg tablet -- -- Historical Provider, atorvastatin (LIPITOR) 40 mg tablet -- -- Historical Provider, baclofen (LIORESAL) 10 mg [...] tablet -- -- Historical Provider, fluticasone propionate (FLOVENT HFA) 110 mcg/actuation inhaler -- -- Historical Provider, furosemide (LASIX) 40 mg tablet -- -- Historical Provider, gabapentin (NEURONTIN) 400 mg capsule -- -- Historical Provider, hydrALAZINE (APRESOLINE) 50 mg tablet -- -- Historical Provider, HYDROcodone-acetaminophen (NORCO) 7.5-325 mg per tablet -- -- Historical Provider, meloxicam (MOBIC) 15 mg tablet -- -- Historical Provider, metoprolol (LOPRESSOR) 100 mg tablet -- -- Historical Provider, olmesartan (BENICAR) 40 mg tablet -- -- Historical Provider, pantoprazole DR (PROTONIX) 40 mg EC tablet -- -- Historical Provider, polyethylene glycol (MIRALAX) 17 gram/dose powder -- -- Historical Provider, primidone (MYSOLINE) 50 mg tablet -- -- Historical Provider, vitamin E (AQUASOL E) 400 unit capsule -- -- Historical Provider, zolpidem (AMBIEN) 10 mg tablet -- -- Historical Provider, Ongoing Comment Hilda Red, OT 06/19/2019 9:37 PM gato bisacodyl Current Facility-Administered Medications: ??? [SEP Hold] ceFAZolin (ANCEF) 2,000 mg/20 mL in sterile water (premix) 2,000 mg, 2,000 mg, intravenous, Q8H KELIN, Last Rate: 0 mL/hr at 06/28/191720, 2,000 mg at 06/28/192131 ??? fentaNYL 2500 mcg/50 mL (50 mcg/mL) infusion (premix), 12.5-400 mcg/hr, intravenous, Titrated, Stopped at 06/28/192111 ??? [SEP Hold] gentamicin (GARAMYCIN) 370 mg in sodium chloride 0.9% 37 mL (10 mg/mL) syringe, 5 mg/kg (Adjusted), intravenous, Q24H, Stopped at 06/28/191750 ??? [MAR Hold] propofol (DIPRIVAN) IV 50 mg, 50 mg, intravenous, Once, Stopped at 06/28/19 185 ??? propofol (DIPRIVAN) IV, 5-50 mcg/kg/min, intravenous, Titrated, Stopped at 06/28/192118 Facility-Administered Medications Ordered in Other Encounters: ??? dexAMETHasone (DECADRON) 4 mg/mL injection, , , PRN, 4 mg at 06/28/192122 ??? Lactated Ringer's (LR) infusion, , , Continuous PRN Social History Tobacco Use Smoking Status Not on file Substance and Sexual Activity Alcohol Use Not on file Substance and Sexual Activity Drug Use Not on file History reviewed. No pertinent family history. Vitals: 06/28/19 19406/28/19200406/28/192050 BP: 148/74 148/74 Pulse: 85 91 96 Resp: 23 24 Temp: (!) 35.6 ??C (96.1 ??F) 36.2 ??C (97.2 ??F) SpO2: 99% 100% PT: 06/28/2019: 12.1 sec INR: 06/28/2019: 1.1 APTT: 06/28/2019: 25 sec Hgb A1C: 06/10/2019: 6.2 %* CBC RBC: 06/28/2019: 2.57 M/cumm* RDW: 06/13/2019: 14.8 % MCHC: 06/28/2019: 37.2 g/dL* MCH: 06/28/2019: 35.0 pg* MCV: 06/28/2019: 94.2 fL Hct: 06/28/2019: 24.2 %* Hgb: 06/28/2019: 9.0 g/dL* WBC: 06/28/2019: 6.7 K/cumm MPV: 06/28/2019: 11.1 fL Platelets: 06/28/2019: 195 K/cumm RDW CV: 06/28/2019: 26.7 %* RDW Sd: 06/28/2019: 69.5 fL* BMP Glucose: 06/28/2019: 267 mg/dL* Calcium: 06/28/2019: 8.8 mg/dL Sodium: 06/28/2019: 141 mmol/L Potassium: 06/28/2019: 6.9 mmol/L* CO2: 06/28/2019: 29 mmol/L Chloride: 06/28/2019: 103 mmol/L BUN: 06/28/2019: 38 mg/dL* Creatinine: 06/28/2019: 1.4 mg/dL* DOS Physical Exam Medical history, medications, and allergies reviewed. Attestation: With today's edits, I endorse the the findings of the H&P dated: 06/28/2019. Airway Exam: Mallampati: intubated Cervical ROM: c - collar in place and unable to evaluate TM distance: 3 Lines/Drains/Tubes/Devices Lines in situ: Additional comments: Cordis in situ right femoral vein Anesthesia Plan ASA 3- emergent My patient is approved for the Anesthesia Controlled Medication protocol when under care of a FOAMING MACHINE OPERATOR Planned anesthesia: General Team communication plan: oral ET tube Induction: Induction: intravenous and inhalational. Postoperative Plan: Postoperative administration opioids intended. Postoperative mechanical ventilation intended. Patient's planned disposition post procedure is ICU. No trial extubation planned. Informed Consent: Discussed plan with resident. Anesthesia plan and risks discussed with not discussed. Consent and Attending signature: I and/or my designee have discussed the anesthesia plan, benefits, possible alternatives, parental presence at time of induction (if indicated), and clinically relevant risks that may include dental injury, unintentional awareness, and/or other complications. The patient and/or parent/legal guardian understand, and agree to proceed. All questions answered. ND CUTTER documented in this encounter Plan of Treatment Not on file documented as of this encounter Visit Diagnoses Not on filedocumented in this encounter Administered Medications Inactive Administered Medications - up to 3 most recent administrations Medication Order MAR Action Action Date Dose Rate Site ceFAZolin (ANCEF) 2,000 mg/20 mL in sterile water (premix) 2,000 mg 2,000 mg, intravenous, at 400 mL/hr, Administer over 3 Minutes, Every 8 hours scheduled, First dose on Wed06/28/19 at 1705, For 10 doses, Indications: Bone/Joint InfectionIndications:Bone/J oint Infection New Bag 07/01/2019 2:13 PM SECOND CUTTER 2,000 mg 400 mL/hr New Bag 07/01/2019 5:48 AM SECOND CUTTER 2,000 mg 400 mL/hr New Bag 06/30/2019 9:37 PM SECOND CUTTER 2,000 mg 400 mL/hr dexAMETHasone (DECADRON) 4 mg/mL injection Administer over 2 Minutes, As needed, Starting on Wed06/28/19 at 2123, Anesthesia Intra-op Given 06/28/2019 9:23 PM SECOND CUTTER 4 mg dextrose 5% and sodium chloride 0.45% infusion (premix) intravenous, Continuous PRN, Starting on Wed06/28/19 at 2243, Anesthesia Intra-op New Bag 06/28/2019 10:43 PM SECOND CUTTER 40 mL/hr famotidine (PEPCID) injection Administer over 2 Minutes, As needed, Starting on Wed06/28/19 at 2123, Anesthesia Intra-op Given 06/28/2019 9:23 PM SECOND CUTTER 20 mg insulin regular bolus from bag 4-6 Units 4-6 Units, intravenous, Every 1 hour PRN, high blood sugar per infusion instructions., Starting on Wed06/28/19 at 2140, Intra-Op, Administer additional IV bolus doses as directed in insulin infusion order., Indications: Diabetes MellitusIndications:Diabetes Mellitus Given 06/28/2019 9:49 PM SECOND CUTTER 4 Units insulin regular in 0.9% sodium [...] RoutineIndications:Diabetes Mellitus Rate/Dose Verify 06/29/2019 4:00 PM SECOND CUTTER 4 Units/hr 4 mL/hr Rate/Dose Verify 06/29/2019 3:00 PM SECOND CUTTER 4 Units/hr 4 mL/hr Rate/Dose Verify 06/29/2019 2:00 PM SECOND CUTTER 4 Units/hr 4 mL/hr Lactated Ringer's (LR) infusion Continuous PRN, Starting on Wed06/28/19 at 2100, Anesthesia Intra-op New Bag 06/28/2019 9:00 PM SECOND CUTTER ondansetron (ZOFRAN) injection intravenous, Administer over 2 Minutes, As needed, Starting on Wed06/28/19 at 2147, Anesthesia Intra-op Given 06/28/2019 9:47 PM SECOND CUTTER 4 mg phenylephrine (GUERITA-SYNEPHRINE) 0.5 mg/5 mL (100 mcg/mL) in sodium chloride 0.9% (premix) intravenous, As needed, Starting on Wed06/28/19 at 2149, Anesthesia Intra-op Given 06/28/2019 10:05 PM SECOND CUTTER 200 mc g Given 06/28/2019 10:00 PM SECOND CUTTER 100 mcg Given 06/28/2019 9:53 PM SECOND CUTTER 100 mcg phenylephrine (GUERITA-SYNEPHRINE) 5 mg/50 mL (100 mcg/mL) in sodium chloride 0.9% (premix) Continuous PRN, Starting on Wed06/28/19 at 2149, Anesthesia Intra-op Rate/Dose Change 06/28/2019 10:45 PM SECOND CUTTER 0.7 mcg/kg/min 42 mL/hr Rate/Dose Change 06/28/2019 10:43 PM SECOND CUTTER 0.8 mcg/kg/min 48 mL/hr Rate/Dose Change 06/28/2019 10:07 PM SECOND CUTTER 1 mcg/kg/min 60 m L/hr propofol (DIPRIVAN) IV 5-50 mcg/kg/min ? 107.5 kg (3.225-32.25 mL/hr, rounded to 3.23-32.25 mL/hr), 10 mg/mL, intravenous, Titrated, Starting on Wed06/28/19 at 1756, Until Wed06/28/19 at 2350, Indications: Sedation in Intubated Patients, Initial dose: Other (comment) / 20 mcg/kg/min, Titrate: Up/Down, Titrate by: 10 mcg/kg/min, Every: 10 minutes, Goal: RASS, RASS Goal: -1, Discontinue when patient extubated. Room temperature only, RoutineIndications:Sedat ion in Intubated Patients Rate/Dose Verify 06/28/2019 11:45 PM SECOND CUTTER 30 mcg/kg/min 19.35 mL/hr Restarted 06/28/2019 10:37 PM SECOND CUTTER 30 mcg/kg/min 19.35 mL/ hr Rate/Dose Change 06/28/2019 8:55 PM SECOND CUTTER 30 mcg/kg/min 19.3 5 mL/hr documented in this encounter Care Teams Children'[employer] [facility] Magistrate Relationship Specialty Start Date End Date Bernardo Edwards MD [address] [place] [address] PCP - General 06/14/19 07/04/20 documented as of this encounter
--- OUTSIDE RECORDS SUMMARY | 2024-08-13 05:03 | XMS_ITS | Encounter Summary ---
Author Organization [facility] es Address [address] [place] [address] Phone Care Team Providers Care Manager Spring Name Role Phone Bernardo Edwards MD Primary Care Provider [phone] Reason for Visit * Auth/Cert Specialty Diagnoses / Procedures Referred By Kesha diggs Referred To Contact Referral ID Status Reason Start Date Expiration Date Visits Re quested Visits Authorized [id number] 1 1 Encounter Details Date Type Department Care Team (Late st Contact Info) Description 06/21/2019 3:00 PM VENEER CLIPPER HELPER Home Care Visit [facility] [address] [place] [id number] Rosie Concepcion COTA OT HOME VISIT Social History Tobacco Use Types Packs/Day Years Used Date Smoking Tobacco: Never Assessed Comments Unknown Sex and Gender Information Value Date Recorded Sex Assigned at Not on file Legal Sex Female 10:28 AM CDT Gender Identity Female 01/30/2020 10:55 AM CDT Sexual Orientation Not on file documented as of this encounter Last Filed Vital Signs Vital Sign Reading Time Taken Comments Blood Pressure 166/89 06/21/2019 3:35 PM VENEER CLIPPER HELPER Pulse 90 06/21/2019 3:35 PM VENEER CLIPPER HELPER Temperature 36.9 ??C (98.4 ??F) 06/21/2019 3:35 PM CS T Respiratory Rate 18 06/21/2019 3:35 PM VENEER CLIPPER HELPER Oxygen Saturation 90% 06/21/2019 3:35 PM VENEER CLIPPER HELPER Inhaled Oxygen Concentration - - Weight - - Height - - Body Mass Index - - documented in this encounter Plan of Treatment Not on file documented as of this encounter Visit Diagnoses Not on filedocumented in this encounter Home Health Visit - Care Plan Visit Details Visit Type -OT Home Visit Discipline -Occupational Therapy Problems Problem Description Start Date Status Goals Interve ntions Homebound Status Disciplines: Correction, Physical Therapy, Occupational Therapy Patient's homebound status 06/15/2019 Active 1 goal linked to scheduled/docume nted intervention 1 goal intervention scheduled/documen jeannie in this visit Monitor patient's vital signs every home health visit Disciplines: Correction, Physical Therapy, Occupational Therapy Monitor patient's vital signs every home health visit. 06/15/2019 Active 1 goal linked to scheduled/docume nted intervention 1 goal intervention scheduled/documen jeannie in this visit OT Activity Tolerance/Energy Conservation Disciplines: Occupational Therapy Impaired activity tolerance for functional activity 06/19/2019 Active - 1 problem intervention scheduled/documen jeannie in this visit OT Impaired UE Function and/or Fine Motor Skills Disciplines: Occupational Therapy Impaired functional use of upper extremity 06/19/2019 Active - 1 problem intervention scheduled/documen jeannie in this visit Goals Goal Associated Problem Outcome Goal Met? Visit Notes Patient recieves care at the most appropriate care setting Description: Patient receives care at the most appropriate care setting. Homebound Status No Measure vital signs during every home health visit during episode of care Description: Home lead network architect to measure vital signs during every home [...] care at the most appropriate care setting Completed Patient is homebound due to limited mobility, unsteady balance/gait, fall risk and requiring assistance from another person for pt to leave home. Monitor Vital Signs Description: Monitor blood pressure, pulse, oxygen saturation, respirations Problem:Monitor patient's vital signs every home health visit Goal:Measure vital signs during every home health visit during episode of care Completed Energy Conservation Education Description: Instruct patient/caregiver in techniques for improved activity tolerance Problem:OT Activity Tolerance/Energy Conservation Completed Instructed pt on energy conservation techniques (taking rest breaks, pursed lip breathing, sitting to perform activities, prioritizing activities). Reviewed and issued handout. Pt demonstrates good understanding. Home Exercise Program (HEP) Description: Instruct patient/caregiver and perform HEP. Problem:OT Impaired UE Function and/or Fine Motor Skills Completed Instructed pt on Walter UE HEP (Shoulder, elbow, wrist, hand flex/ext, hor ab/add, forearm pro/sup) 10-20 reps bid to increase strength and ROM in Walter UEs Pt performs Walter UE HEP, 10 reps. X 1 reviewed and issued HEP handout. documented in this encounter Home Health Visit - Actions and Narratives Actions Reviewed and discussed OT go als with pt and pt in agreement with OT goals. Pt agrees to instruction on Walter UE HEP (reviewed and issued handout) and energy conservation techniques (reviewed and issued handout). See intervention list for details. Pt reports her cg is assisting her with transferring in/out of tub/shower and completing bathing tasks. Recommended pt utilize shower chair and pt reports she has a shower seat already that she can use and will begin using it to complete bathing tasks in tub/shower. Plan to continue to see pt for skilled OT services to address current goals. Pt in agreement. documented in this encounter Care Teams Manager Spring Relationship Specialty Start Date End Date Bernardo Edwards MD [address] [place] [address] PCP - General 06/14/19 07/04/20 documented as of this encounter
--- OUTSIDE RECORDS SUMMARY | 2024-08-13 05:03 | XMS_ITS | Encounter Summary ---
Author Organization [facility] Home Care Servic es Address [address] [place] [address] Phone Care Team Providers Care Fire Captain Marine Name Role Phone Bernardo Edwards MD Primary Care Provider [phone] Reason for Visit * Auth/Cert Specialty Diagnoses / Procedures Referred By Kesha diggs Referred To Contact Referral ID Status Reason Start Date Expiration Date Visits Re quested Visits Authorized [id number] 1 1 Encounter Details Date Type Department Care Team (Late st Contact Info) Description 06/26/2019 1:00 PM SLOT MACHINE DEPARTMENT FLOORPERSON Home Care Visit [facility] [address] [place] [id number] Jalen Mahmood PTA PT HOME VISIT Social History Tobacco Use Types [...] Sign Reading Time Taken Comments Blood Pressure 142/81 06/26/2019 1:22 PM SLOT MACHINE DEPARTMENT FLOORPERSON Pulse 83 06/26/2019 1:22 PM SLOT MACHINE DEPARTMENT FLOORPERSON Temperature 36.8 ??C (98.2 ??F) 06/26/2019 1:22 PM CS T Respiratory Rate 18 06/26/2019 1:22 PM SLOT MACHINE DEPARTMENT FLOORPERSON Oxygen Saturation 93% 06/26/2019 1:22 PM SLOT MACHINE DEPARTMENT FLOORPERSON Inhaled Oxygen Concentration - - Weight - - Height - - Body Mass Index - - documented in this encounter Plan of Treatment Not on file documented as of this encounter Visit Diagnoses Not on filedocumented in this encounter Home Health Visit - Care Plan Visit Details Visit Type -PT Home Visit Discipline -Physical Therapy Problems Problem Description Start Date Status Goals Interve ntions PT Impaired Functional Mobility/Balance Disciplines: Physical Therapy Impaired functional mobility/balance 06/16/2019 Active - 5 problem interventions scheduled/documen jeannie in this visit Homebound Status Disciplines: Fci, Physical Therapy, Occupational Therapy Patient's homebound status 06/15/2019 Active 1 goal linked to scheduled/docume nted intervention 1 goal intervention scheduled/documen jeannie in this visit Monitor patient's vital signs every home health visit Disciplines: Fci, Physical Therapy, Occupational Therapy Monitor patient's vital [...] visit during episode of care Description: Home engineered wood designer to measure vital signs during every home health visit during episode of care. Monitor patient's vital signs every home health visit No Interventions Intervention Associated Problem/Goal Status Variance Visit Notes Transfer training Description: Instruct patient/caregiver and perform transfer training. Problem:PT Impaired Functional Mobility/Balance Completed Home Exercise Program (HEP) Description: Instruct patient/caregiver and perform HEP. Problem:PT Impaired Functional Mobility/Balance Completed Gait/Stair Training Description: Instruct patient/caregiver and perform gait/stair training. Problem:PT Impaired Functional Mobility/Balance Completed GT TRNG WITH 2WH.WALK. , 35-43 FT, WITH CGA 1 ASSIST. PT LIKES TO WALK WITH FEET ROTATED OUTWARD, VC'S WONT CORRECT, BEEN WALKING THAT WAY FOR YEARS, PER PT. Balance Training/Activities Description: Instruct patient/caregiver and perform balance training activities. Problem:PT Impaired Functional Mobility/Balance Completed STANDING BALANCE ACT. AT KIT. SINK: MARCHING, HIP ABD, HIP EXT, MINI-SQUATS. RANGE WAS KEPT WITHIN PN KEERTHI. Therapeutic Exercise Description: Perform therapeutic exercise, progressing as tolerated. Problem:PT Impaired Functional Mobility/Balance Completed TAUGHT PT THE PROPER TECH WHEN PERFORMING EX'S, PT VERBALLY UNDERSTOOD. Homebound Status Description: Patient is homebound due to difficulty in ambulation as evidenced by hx of chronic low back pain , needing a walker to ambulate, a fall risk and needing assistance with ADLS and personal care Problem:Homebound Status Goal:Patient recieves care at the most appropriate care setting Scheduled HOMEBOUND DUE TO NOT HAVING THE STRENGTH/ENDURANCE TO AMBULATE VERY FAR, NEEDING A W/C AND ASSIST OF 1 TO LEAVE HER APPT. Monitor Vital Signs Description: Monitor blood pressure, pulse, oxygen saturation, respirations Problem:Monitor patient's vital signs every home health visit Goal:Measure vital signs during every home health visit during episode of care Scheduled documented in this encounter Home Health Visit - Actions and Narratives Actions GT TRNG W/2WH.WALK. THER EX TO LE'S. STANDING EX'S documented in this encounter Care Teams Fire Captain Marine Relationship Specialty Start Date End Date Bernardo Edwards MD [address] [place] [address] PCP - General 06/14/19 07/04/20 documented as of this encounter
--- OUTSIDE RECORDS SUMMARY | 2024-08-13 05:03 | XMS_ITS | Encounter Summary ---
Author Organization [facility] Home Care [facility] es Address [address] [place] [address] Phone Care Team Providers Care Warrant Clerk Name Role Phone Jose Manuel Gruber MD Unavailable [phone] Bernardo Edwards MD Primary Care Provider [phone] Reason for Visit * Auth/Cert Specialty Diagnoses / Procedures Referred By Contac t Referred To Contact Referral ID Status Reason Start Date Expiration Date Visits Re quested Visits Authorized [id number] 1 1 Encounter Details Date Type Department Care Team (Latest Contact Info) Description 06/15/2019 12:00 PM CUSTOMER EXPERIENCE RETAIL CLERK Home Care Visit [facility] [address] [address] [address] [place] [address] Pura Ortiz RN SN OASIS START OF CARE Social History Tobacco Use Types Packs/Day Years [...] Lack of Transportation (Non-Medical) Yes 06/29/2019 Comments Unknown Sex and Gender Information Value Date Recorded Sex Assigned at Not on file Legal Sex Female 10:28 AM CDT Gender Identity Female 01/30/2020 10:55 AM CDT Sexual Orientation Not on file documented as of this encounter Last Filed Vital Signs Vital Sign Reading Time Taken Comments Blood Pressure 132/72 06/15/2019 1:30 PM CUSTOMER EXPERIENCE RETAIL CLERK Pulse 82 06/15/2019 1:30 PM CUSTOMER EXPERIENCE RETAIL CLERK Temperature 36.5 ??C (97.7 ??F) 06/15/2019 1:30 PM CS T Respiratory Rate 18 06/15/2019 1:30 PM CUSTOMER EXPERIENCE RETAIL CLERK Oxygen Saturation 92% 06/15/2019 1:30 PM CUSTOMER EXPERIENCE RETAIL CLERK Inhaled Oxygen Concentration - - Weight 107.5 kg (237 lb) 06/15/2019 1:30 PM CUSTOMER EXPERIENCE RETAIL CLERK Height 157.5 cm (5' 2 ) 06/15/2019 1:30 PM CUSTOMER EXPERIENCE RETAIL CLERK Body Mass Index 43.35 06/15/2019 1:30 PM CUSTOMER EXPERIENCE RETAIL CLERK documented in this encounter Plan of Treatment Not on file documented as of this encounter Visit Diagnoses Not on filedocumented in this encounter Home Health Visit - Care Plan Visit Details Visit Type -SN OASIS Start o f Care Discipline -Longterm Problems Problem Description Start Date Status Goals Interve ntions Homebound Status Disciplines: Longterm, Physical Therapy, Occupational Therapy Patient's homebound status 06/15/2019 Active 1 goal linked to scheduled/docume nted intervention 1 goal intervention scheduled/documen jenanie in this visit Monitor patient's vital signs every home health visit Disciplines: Longterm, Physical Therapy, Occupational Therapy Monitor patient's vital signs every home health visit. 06/15/2019 Active 1 goal linked to scheduled/docume nted intervention 2 goal interventions scheduled/documen jeannie in this visit Standardized Guidelines Disciplines: Longterm, Physical Therapy, Occupational Therapy Standardized Guidelines 06/15/2019 Active 1 goal linked to scheduled/docume nted intervention 2 goal interventions scheduled/documen jeannie in this visit Fall Precautions/Safet y Concerns Disciplines: Longterm, Physical Therapy, Occupational Therapy Alteration in safety 06/15/2019 Active 1 goal linked to scheduled/docume nted intervention 2 goal interventions scheduled/documen jeannie in this visit [place] Precautions Disciplines: Longterm, Physical Therapy, Occupational Therapy [place] Precautions 06/15/2019 Active 1 goal linked to scheduled/docume nted intervention 1 goal intervention scheduled/documen jeannie in this visit Pain Disciplines: Longterm, Physical Therapy, Occupational Therapy Alteration in comfort 06/15/2019 Active 1 goal linked to scheduled/docume nted intervention 2 goal interventions scheduled/documen jeannie in this visit Goals Goal Associated Problem Outcome Goal Met? Visit Notes Patient recieves care at the most appropriate care setting Description: Patient receives care at the most appropriate care setting. Homebound Status No Measure vital signs during every home health visit during episode of care Description: Home diesel bus mechanic to measure vital signs during every home health visit during episode of care. Monitor patient's vital signs every home health visit No Understanding of when to notify MD in absence of home care staff Description: Understanding of when to notify MD in absence of home care staff Standardized Guidelines No Demonstrate use of safety precautions Description: Demonstrate use of safety precautions Fall Precautions/Safety Concerns No Demonstrate knowledge of universal precautions Description: Demonstrate knowledge of universal precautions [place] Precautions No Report that pain has been reduced or controlled Description: Report that pain has been reduced or controlled Pain No Interventions Intervention Associated Problem/Goal Status Variance Visit Notes Homebound Status Description: Patient is homebound due to difficulty in ambulation as evidenced by hx of chronic low back pain , needing a walker to ambulate, a fall risk and needing assistance with ADLS and personal care Problem:Homebound Status Goal:Patient recieves care at the most appropriate care setting Completed Patient is homebound due to difficulty in ambulation as evidenced by hx of chronic low back pain, needing a walker to ambulate, a fall risk and needing assistance with ADLS and personal care as needed Monitor Vital Signs Description: Monitor blood pressure, pulse, oxygen saturation, respirations Problem:Monitor patient's vital signs every home health visit Goal:Measure vital signs during every home health visit during episode of care Completed Supervising Discipline notification of abnormal vital signs Description: Use standardized clinical guidelines of abnormal vital signs to report to physician. (SBP 90-160, DBP 40-90, O2Sat 88-100%, HR 50-110) Problem:Monitor patient's vital signs every home health visit Goal:Measure vital signs during every home health visit during episode of care Completed Home Care Staff Absence Description: In absence of Home Care staff the pt will do prescribed exercises by PT/OT Problem:Standardized Guidelines Goal:Understanding of when to notify MD in absence of home care staff Completed Instructed pt to do prescribed exercises per PT/OT in their absence and pt voiced understanding Physician notification Description: Use standardized clinical guidelines for notifying physician of abnormal vital signs or clinical findings Problem:Standardized Guidelines Goal:Understanding of when to notify MD in absence of home care staff Completed Indications for notifying physician reviewed with Patient. Patient verbalizes understanding of when to contact the physician, , and/or EMS. High Fall Risk Precautions Description: Instruct patient/caregiver in methods to prevent falls Problem:Fall Precautions/Safety Concerns Goal:Demonstrate use of safety precautions Completed Instructed pt the need to use her walker at all times to avoid falls and pt voiced understanding [place] Fall Precautions Description: Assess patient safety Problem:Fall Precautions/Safety Concerns Goal:Demonstrate use of safety precautions Completed Instructed pt on need to ask for assistance with ADLS and personal care to avoid falls and increase safety and pt voiced understanding. Aspects of Care Description: Instruct patient/caregiver on universal precautions and home infection control measures Problem:[place] Precautions Goal:Demonstrate knowledge of universal precautions Completed Instruct in relaxation strategies Description: Instruct patient/caregiver in relaxation strategies Problem:Pain Goal:Report that pain has been reduced or controlled Completed Instruct on pain management techniques Description: Instruct in pharmacologic and nonpharmacologic pain management techniques. Problem:Pain Goal:Report that pain has been reduced or controlled Completed documented in this encounter Home Health Visit - Actions and Narratives Narratives M1810 - Ability to Dress Upp er Body Documented Answer: 1 - Able to dress upper body without assistance if clothing is laid out or handed to the patient. Recommendation: 2 - Someone must help the patient put on upper body clothing. Clinical documentation reflects a MAHC-10 score greater than or equal to 4- patient is at risk for falls. For the purposes of this OASIS item, assistance includes verbal cuing and/or supervision. Per [id number] M1820 - Ability to Dress Lower Body Documented Answer: 1 - Able to dress lower body without assistance if clothing and shoes are laid out or handed to the patient. Recommendation: 2 - Someone must help the patient put on undergarments, slacks, socks or nylons, and shoes. Clinical documentation reflects that the patient requires a tow truck driver , stand-by assistance. For the purposes of this M-item, supervision is considered assistance and the patient should be reflected as a 2. M1860 - Ambulation/Locomotion Documented Answer: 2 - Requires use of a two-handed device (for example, walker or crutches) to walk alone on a level surface and/or requires human supervision or assistance to negotiate stairs or steps or uneven surfaces. Recommendation: 3 - Able to walk only with the supervision or assistance of another person at all times. Clinical documentation reflects that the patient requires verbal cuing or supervision to ambulate safely at all times. M2200 - Number of therapy visits indicated (total of physical, occupational and speech-language pathology combined). Documented Answer: 006 Recommendation: 008 The clinical record reflects that the patient has orders for more therapy visits than documented in this item. M1800 - Grooming Documented Answer: 1 - Grooming utensils must be placed within reach before able to complete grooming activities. Recommendation: 2 - Someone must assist the patient to groom self. Response 2 includes standby assistance or verbal cueing. M1028 - Comorbidities and Co-existing Conditions Recommendation: 2 - Diabetes Mellitus Tigista Magedjani DPO 06/28/2019 Chart review and recommendation made by MIKALA Sidhu, [employer] documented in this encounter Care Teams Warrant Clerk Relationship Specialty Start Date End Date Bernardo Edwards MD [address] [place] [address] PCP - General 06/14/19 07/04/20 Jose Manuel Gruber MD Fellow Orthopedic Surgery 07/06/19 documented as of this encounter
--- OUTSIDE RECORDS SUMMARY | 2024-08-13 05:03 | XMS_ITS | Encounter Summary ---
Author Organization [facility] Healthcare Address [address] [place] [address] Care Team Providers Care Commercial Floor Covering Installer Name Role Phone Bernardo Edwards MD Primary Care Provider [phone] Reason for Visit * Reason Comments Fall Encounter Details Date Type Department Care Team (Late st Contact Info) Description 06/28/2019 9:00 PM CAR BLOCKER - 06/28/2019 10:50 PM CAR BLOCKER Surgery [facility] Operating Room [address] [place] [address] Lo Laura DO [address] [place] [address] IRRIGATION AND DEBRIDEMENT ? TIBIA Surgery Details Date/Time Status Location OR Service Patient Class Case Class Case Type Trauma Case? 06/28/2019 9:00 PM Posted [facility] OR POD 2 204 Orthopaedics Emergency Urgent - 3 hours Panel 1 Procedure LRB Anes Op Region Wound Class Comments IRRIGATION AND DEBRIDEMENT ? TIBIA Left General Leg Lower Class IV - Dirty or Infected OPEN REDUCTION INTERNAL FIXATION - TIBIA Left General Leg Lower Class IV - Dirt y or Infected Surgeon Surgeon Role Service Panel Rui Stanford MD Resident - Assisting Orth opaedics 1 Lo Laura DO Primary Orthopaedics 1 Case Notes [phone] documented in this encounter Social History Tobacco [...] Sign Reading Time Taken Comments Blood Pressure 148/74 06/28/2019 8:51 PM CAR BLOCKER Pulse 96 06/28/2019 8:51 PM CAR BLOCKER Temperature 36.2 ??C (97.2 ??F) 06/28/2019 8:51 PM CS T Respiratory Rate 24 06/28/2019 8:51 PM CAR BLOCKER Oxygen Saturation 100% 06/28/2019 8:51 PM CAR BLOCKER Inhaled Oxygen Concentration - - Weight 100 kg (220 lb 7.4 oz) 06/28/2019 6:30 PM CAR BLOCKER Height - - Body Mass Index 45.97 07/02/2019 7:20 AM CAR BLOCKER documented in this encounter Discharge Summaries * Roya Perez, YISSEL - 07/06/2019 1:47 PM CST [facility] Trauma Surgery Inpatient Discharge Summary This [...] problems develop, please call the Trauma phone [phone] during the week or after hours, and ask to speak to the Trauma SOLAR HOT WATER INSTALLER or resident tone cabinet assembler. Please be aware all medications including narcotic pain medications cannot be called in over the phone. To refill, an appointment will need to be made with the appropriate medical or surgical service. You mayfollow up with your primary care physician for long-term management of medications and long-term medical conditions. For an appointment with the Trauma Clinic, Please call [phone] during normal business hours. Care Instructions: Daily [...] brace Slide Board Size: 36 in. The ovyh-pp-ehny evaluation was performed on: 07/05/2019 DME services provided by: [facility] Special Instructions: Continue following PT/OT [...] greater than 250 lbs) Must meet the [facility] manual wheelchair qualifications AND patient [...] regular basis in the home?: Yes The sdzh-nr-luyt evaluation was performed on: 07/05/2019 DME services provided by: [facility] Call your Surgeon???s office from [...] Gruber MD Specialty: Orthopedic Surgery Relationship: Fellow [address] [facility] 6[address]/6B/12A [facility] [address] Next Steps: Follow up Instructions: Please attend your scheduled follow up appointment with orthopedic surgery. Questions: Instructions for follow-up (appointment date and time): Please attend your scheduled follow up appointment with orthopedic surgery. Hernando Velasquez MD Specialty: Internal Medicine [address] [facility] [address] Next Steps: Follow up Instructions: Please continue to follow with your primary care provider for general health maintenance and medication refills. Questions: Instructions for follow-up (appointment date and time): Please continue to follow with your primarycare provider for general health maintenance and medication refills. [facility] Specialty: Wound Care [address] [facility] [address] Next Steps: Follow up Instructions: You may call to schedule a follow up with Trauma Services on an as needed basis. [phone] to schedule. Questions: Instructions for follow-up (appointment date and time): You may call to schedule a follow up with Trauma Services on an as needed basis. Call [phone] to schedule. Future Appointments Date Time Provider Department Center 07/21/2019 1:35 PM Jose Manuel Gruber MD [facility] 6A OS I spent 45 minutes completing this hospital discharge. Roya Perez NP 07/06/19 CC: Hernando Velasquez MD Cosigned by Madhav Long DO at 07/06/2019 10:00 PM CAR BLOCKER BLOCKER BLOCKER Associated attestation - Madhav Long DO - 07/06/2019 10:00 PM CAR BLOCKER I have seen and examined the patient [...] Care Everywhere. * Chronic Hypertension (Discharge Care) (Surinamese) * ORIF of a Leg Fracture (Discharge Care) (Surinamese) * ORIF of an Ankle Fracture (Discharge Care) (Surinamese) * Hinged Knee Brace (Discharge Care) (Surinamese) * Acute Wound Care (Discharge Care) (Surinamese) * How to Transfer a Person Safely (Discharge Care) (Surinamese) * Wheel Chair Transfers (Discharge Care) (Surinamese) documented in this encounter Medications at Time [...] Disposition Code Departure Means Destination Discharge to [facility] facility [facility] documented in this encounter Progress Notes * Mily Rivera MSW - 07/06/2019 2:56 PM CST 07/06/19 3495 Discharge Summary Chart reviewed For Medical Necessity Does patient have a planned readmission to hospital planned? No Discharge Disposition SNF, Medicaid, Short Term Skilled Specify Facility [facility] Contact Number [phone] Discharge Records Chart Copied Equipment/Provider Needs No Home Needs Identified Discharge Additional Assistance Does the patient need discharge transport arranged? Yes Has discharge transport been arranged? Yes Details of Transportation [facility] ([phone]) Trip#[id number] What day is the transport expected? 07/06/19 [...] this time. Pt has been accepted by: [facility] at this time of discharge. SW spoke with Danielle [facility] and patient in regards to discharge and discharge planning and all are agreeable to discharge. Pt's chart has been copied. Orders faxed to: [phone]. Report: [phone]. Patient will admit under [facility] benefits. Mode of transport has been discussed with the patient/family, doctors, nurses, and [facility] ([phone])Trip#[id number] and all are agreeable to plan and [...] 2 L of O2. Mily Rivera LMSW [phone] BLOCKER * Josiane Arreola, RD - 07/05/2019 4:09 [...] Oral Nutrition Supplements Select Supplement: [place] (with breakfast and dinner) 2 times daily Question: Select Supplement: Answer: [place] Comment: with breakfast and dinner 07/05/19 1351 07/02/19 0753 Adult Diet Regular Diet effective now Question: ([facility]) Diet type Answer: Regular 07/02/19 0757 Assessment / Impression: Pt reports she has [...] RD following. Josiane Arreola, MS RD LD #[phone] BLOCKER * Migel Merchant MD - 07/05/2019 7:48 [...] elemental calcium oral Daily 1,000 mg at 07/04/19829 ??? cyclobenzaprine (FLEXERIL) tablet 10 mg 10 [...] Migel Merchant MD Department of Orthopaedic Surgery [facility] in [place] If questions arise overnight, the OTS team can be reached at: [phone] (Floor Resident ) [phone] (Consult Resident) BLOCKER * Leroy Reddy MD - 07/05/2019 6:39 AM CST [facility] Trauma Surgery Daily Progress Subjective Patient [...] medial malleolus fracture -s/p ORIF 06/[address] [facility], NWB 6 weeks # Acute pain due to trauma - Pain service s/o - Baclofen 2.5mg TID - Flexeril - Gabapentin #LUAN: - Creatinine improving, 0.96 on 07/01 no new labs - DVT px; Lovenox - Home meds; Lasix 40mg BID at home - Dispo: pending insurance auth Leroy Reddy MD Department of Orthopaedic Surgery PGY1 [facility] in [facility] BLOCKER * Leroy Reddy MD - 07/04/2019 10:07 AM CST [facility] Trauma Surgery Daily Progress Subjective Patient [...] Reddy MD Department of Orthopaedic Surgery PGY1 [facility] in [facility] BLOCKER * Leroy Reddy MD - 07/03/2019 1:18 PM CST [facility] Trauma Surgery Daily Progress Subjective Patient [...] fracture 4. Noacute pelvic fracture. Dictated by: uLh Moffett M.D. Xr Ankle Left 3 Or [...] - s/p ORIF- ANKLE (Right) 06/[address] [facility] # Acute pain due to trauma - [...] Reddy MD Department of Orthopaedic Surgery PGY1 [facility] in [facility] BLOCKER * Mary Ann Barrett RN - 07/03/2019 8:36 AM CST 07/03/19 5894 Information Information Obtained From Patient Referral Data Referral Reason Discharge Planning Prior to Admission Primary Caregiver Self Support System Friends/neighbors Support system contact info (name, phone, availablity) friend Jt Contreras [phone] Durable Medical Equipment Walker (no wheels);Cane (single [...] Prior to admission, patient was open with [facility] [phone]. Patient was also receiving choreworker services through [facility]. Case management will continue to follow for discharge planning and referrals as needed. Insurance verified as: [employer], [facility] Admit Source: non health care facility point [...] are in agreement with the aftercare plan. BLOCKER * Niki Moore MD - 07/02/2019 1:57 PM CST [facility] Trauma Surgery Daily Progress Subjective Patient [...] AM Result Value Ref Range Product code B1177J11 Unit Number [id number] Product Blood Type APOS Dispense Status PRESUMED [...] AM Result Value Ref Range Product code B2334B85 Unit Number [id number] Product Blood Type APOS Dispense Status RETURNED Product code N6961X21 Unit Number [id number] Product Blood Type APOS Dispense Status PRESUMED [...] (L) 36.1 - 44.3 % Platelet POC Amery 188 140 - 440 K/cumm CBC without [...] Madhav Long DO at 07/03/2019 5:41 PM CAR BLOCKER BLOCKER BLOCKER Associated attestation - Madhav Long DO - 07/03/2019 5:41 PM CAR BLOCKER I have seen and examined the patient [...] information documented by PT student Bashir Mckeon BLOCKER * Blayne Aguilar MD - 07/02/2019 9:55 [...] Orders (From admission, onward) Start Ordered 07/02/19 0753 Adult Diet Regular Diet effective now Question: ([facility]) Diet type Answer: Regular 07/02/19 075 Physical Exam: General: NAD HEENT: tracks appropriately [...] Adithya Clark MD at 07/02/2019 11:38 AM CAR BLOCKER BLOCKER BLOCKER Associated attestation - Adithya Clark MD - 07/02/2019 11:38 AM CAR BLOCKER I have seen and examined the patient [...] mg oral Q6H KELIN 1,000 mg at 07/02/1933 ??? albuterol HFA (PROVENTIL HFA,VENTOLIN HFA,PROAIR HFA) [...] Milo Forrester MD Department of Orthopaedic Surgery [facility] in [place] If questions arise overnight, the OTS team can be reached at: [phone] (Floor Resident ) [phone] (Consult Resident) BLOCKER BLOCKER * Rosie Jay MD - 07/01/2019 4:50 PM CST [facility] Trauma Surgery ICU Daily Progress Subjective [...] Range HCG, ur, POC Negative Lot Number [id number] QC Backgroud Clear Acceptable QC Control Line [...] PM Result Value Ref Range Product code H4663C64 Unit Number [id number] Product Blood Type ONEG Dispense Status RETURNED Product code Z0424T83 Unit Number [id number] Product Blood Type OPOS Dispense Status RETURNED Product code D9518R48 Unit Number [id number] Product Blood Type ONEG Dispense Status RETURNED Product code O1037X84 Unit Number [id number] Product Blood Type OPOS Dispense Status RETURNED Product code L1559T17 Unit Number [id number] Product Blood Type OPOS Dispense Status PRESUMED TRANSFUSED Product code F8723T82 Unit Number [id number] Product Blood Type OPOS Dispense Status PRESUMED TRANSFUSED Product code D2753F93 Unit Number [id number] Product Blood Type APOS Dispense Status RETURNED Prepare RBC: 2 Units Collection Time: 06/28/19 9:18 PM Result Value Ref Range Product code A9352C86 Unit Number [id number] Product Blood Type OPOS Dispense Status RETURNED Product code E6016B14 Unit Number [id number] Product Blood Type OPOS Dispense Status RETURNED [...] AM Result Value Ref Range Product code Q9228X01 Unit Number [id number] Product Blood Type APOS Dispense Status PRESUMED [...] AM Result Value Ref Range Product code Q4603T89 Unit Number [id number] Product Blood Type APOS Dispense Status RETURNED Product code A3003Q44 Unit Number [id number] Product Blood Type APOS Dispense Status PRESUMED [...] (L) 36.1 - 44.3 % Platelet POC Amery 188 140 - 440 K/cumm CBC without [...] 3. Mild bibasilar atelectasis. Dictated by: Mikhail Beeyr Xr Pelvis 1 Or 2 Views Result [...] Madhav Long DO at 07/03/2019 1:28 PM CAR BLOCKER BLOCKER BLOCKER Associated attestation - Madhav Long DO - 07/03/2019 1:28 PM CAR BLOCKER I have seen and examined the patient on 07/01/19. I agree with the findings and plan of care as documented in the resident's/fellow's note. * Roxanne Gomez NP - 07/01/2019 4:40 PM CST CHUGG-OUT (SICU to OU/Floor Transfer) If this patient is transferring to the medicine service, please use .SICUMED rather than .CHUGGOUT to write this note. Admitting Dx: [facility] Current Problems: NWB ROGER GOMEZ Consults: [] [...] Sign-out was called to Aaliyah of the [employer].[phone] QUESTIONS? Call [phone] BLOCKER * Roxanne Gomez NP - 07/01/2019 7:08 [...] oral, BID enoxaparin, 40 mg, subcutaneous, Q12H [facility] esomeprazole DR, 40 mg, oral, Daily gabapentin, 300 mg, oral, Q8H insulin lispro, 1-3 Units, subcutaneous, Q4H [facility] metoprolol (LOPRESSOR) tablet/capsule, 25 mg, oral, Q6H [facility] polyethylene glycol, 17 g, oral, Daily primidone, [...] AM Result Value Ref Range Product code R9692M96 Unit Number [id number] Product Blood Type APOS Dispense Status CROSSMATCHED Product code Q2869V23 Unit Number [id number] Product Blood Type APOS Dispense Status PRESUMED [...] (L) 36.1 - 44.3 % Platelet POC Amery 188 140 - 440 K/cumm CBC without [...] medications decreases pain -02/01 Home meds -> [place] 7.5/325 TID -> hold Baclofen 10 QID [...] Vascular access: PIV Goals of care:Full Code BLOCKER * Milo Forrester MD - 07/01/2019 5:40 [...] 40 mg oral Daily 40 mg at 07/01/19 0814 ??? gabapentin (NEURONTIN) 50 mg/mL oral solution [...] Milo Forrester MD Department of Orthopaedic Surgery [facility] in [place] If questions arise overnight, the OTS team can be reached at: [phone] (Floor Resident ) [phone] (Consult Resident) BLOCKER BLOCKER * Ina Flor PA - 06/30/2019 7:49 [...] AM Result Value Ref Range Product code Q6075E60 Unit Number [id number] Product Blood Type APOS Dispense Status CROSSMATCHED Product code P4813D35 Unit Number [id number] Product Blood Type APOS Dispense Status PRESUMED [...] (L) 36.1 - 44.3 % Platelet POC Amery 188 140 - 440 K/cumm CBC without [...] DVT prophylaxis: Lovenox in AM Vascular access: sara TINAJERO Goals of care: Full code Assessment and plan has been reviewed with attending, JOSE CRUZ Castellon BLOCKER * Bharath Izabella, [facility] - 06/30/2019 10:21 AM CST Patient profile has been reviewed by clinical retail pharmacy technician on 06/30/2019. Case reviewed on [...] 1,000 mg, 1,000 mg, feeding tube, Q6H [facility], Luz Moody NP, 1,000 mg at 06/30/19 0637 albuterol HFA (PROVENTIL HFA,VENTOLIN HFA,PROAIR HFA) 90 mcg/actuation inhaler 2 puff, 2 puff, inhalation, Q6H PRN (RT), Brittany Serrano NP atorvastatin (LIPITOR) tablet 10 mg, 10 mg, feeding tube, Nightly, Luz Driscoll NP, 10 mg at 06/29/192032 ceFAZolin (ANCEF) 2,000 mg/20 mL in sterile water (premix) 2,000 mg, 2,000 mg, intravenous, Q8H [facility], Mago Brian MD, Last Rate: 400 mL/hr at 06/30/19 0826, 2,000 mg at 06/30/19 0826 chlorhexidine (PERIDEX) 0.12 % solution 15 mL, 15 mL, mouth/throat, BID, Brittnay Serrano NP, 15 mL at 06/30/19 0905 dextrose 5% and Lactated Ringer's infusion, 25 [...] mg at 06/30/19 0856 Izabella Sinha [facility], PharmD, BCPS, BCCCP Electronically signed by Izabella Sinha [facility] at 06/30/2019 10:21 AM CAR BLOCKER * Roxanne Gomez SOLAR HOT WATER INSTALLER - 06/30/2019 6:51 AM CST Surgical ICU [...] AM Result Value Ref Range Product code K1191U79 Unit Number [id number] Product Blood Type APOS Dispense Status CROSSMATCHED Product code X8488F92 Unit Number [id number] Product Blood Type APOS Dispense Status ISSUED [...] AM Result Value Ref Range Product code F7104W37 Unit Number [id number] Product Blood Type APOS Dispense Status ISSUED [...] and agrees with it. Electronically signed by: Gilbreto Fuentes M.D. Xr Ankle Left 3 Or [...] Lovenox 40mg HS Goals of care:Full Code BLOCKER * Ana Acosta MD - 06/30/2019 6:38 AM CST [facility] Trauma Surgery ICU Daily Progress Subjective [...] Range HCG, ur, POC Negative Lot Number [id number] QC Backgroud Clear Acceptable QC Control Line [...] PM Result Value Ref Range Product code E3000S74 Unit Number [id number] Product Blood Type ONEG Dispense Status RETURNED Product code J4155T58 Unit Number [id number] Product Blood Type OPOS Dispense Status RETURNED Product code P7632E27 Unit Number [id number] Product Blood Type ONEG Dispense Status RETURNED Product code F7040G28 Unit Number [id number] Product Blood Type OPOS Dispense Status RETURNED Product code Z5428K36 Unit Number [id number] Product Blood Type OPOS Dispense Status PRESUMED TRANSFUSED Product code A1295E17 Unit Number [id number] Product Blood Type OPOS Dispense Status PRESUMED TRANSFUSED Prepare RBC: 2 Units Collection Time: 06/28/19 9:18 PM Result Value Ref Range Product code C7245B88 Unit Number [id number] Product Blood Type OPOS Dispense Status RETURNED Product code L7572R82 Unit Number [id number] Product Blood Type OPOS Dispense Status RETURNED [...] AM Result Value Ref Range Product code S1842I61 Unit Number [id number] Product Blood Type APOS Dispense Status ISSUED [...] Acosta M.D. General Surgery, PGY-4 6:38 AM [phone] Cosigned by Miltno Leiva MD at 06/30/2019 11:18 AM CAR BLOCKER BLOCKER BLOCKER Associated attestation - Milton Leiva MD - 06/30/2019 11:18 AM CAR BLOCKER I have seen and examined the patient [...] mg intravenous Q8H KELIN 400 mL/hr at 06/30/19825 2,000 mg at 06/30/19825 ??? chlorhexidine (PERIDEX) 0.12 % solution 15 mL 15 mL mouth/throat BID 15 mL at 06/30/19904 ??? cyclobenzaprine (FLEXERIL) tablet 5 mg 5 mg feeding tube TID PRN 5 mg at 06/30/19 1106 ??? dextrose 5% and Lactated Ringer's infusion 25 mL/hr intravenous Continuous 25 mL/hr at 25 mL/hr at 06/30/19 1600 ??? docusate [...] feeding tube Daily 17 g at 06/30/19 09 ??? primidone (MYSOLINE) tablet 50 mg 50 mg feeding tube BID 50 mg at 06/30/19 09 ??? propofol (DIPRIVAN) IV 5-50 mcg/kg/min intravenous [...] Migel Merchant MD Department of Orthopaedic Surgery [facility] in [place] If questions arise overnight, the OTS team can be reached at: [phone] (Floor Resident ) [phone] (Consult Resident) BLOCKER * Ina Flor PA - 06/29/2019 7:35 [...] AM Result Value Ref Range Product code L2016U12 Unit Number [id number] Product Blood Type APOS Dispense Status ISSUED [...] PM Result Value Ref Range Product code S1461E94 Unit Number [id number] Product Blood Type ONEG Dispense Status RETURNED Product code W2040Q32 Unit Number [id number] Product Blood Type OPOS Dispense Status RETURNED Product code P8840Y24 Unit Number [id number] Product Blood Type ONEG Dispense Status RETURNED Product code X8284A22 Unit Number [id number] Product Blood Type OPOS Dispense Status RETURNED Product code L8296C90 Unit Number [id number] Product Blood Type OPOS Dispense Status PRESUMED TRANSFUSED Product code W9380C12 Unit Number [id number] Product Blood Type OPOS Dispense Status PRESUMED TRANSFUSED Prepare RBC: 2 Units Collection Time: 06/28/19 9:18 PM Result Value Ref Range Product code U0553P11 Unit Number [id number] Product Blood Type OPOS Dispense Status RETURNED Product code W8733Y08 Unit Number [id number] Product Blood Type OPOS Dispense Status RETURNED [...] remains intubated for OR tomorrow - ACVC //5 - Plan to PSV post op - [...] in ED ?? #Right medial mal fracture: / fall -S/p washout and splint 06/28. -Ortho Trauma following. -Plan to return to OR for further repair or Wednesday -[facility] Intensive Care Unit Standards of Care: Restraints: none DVT prophylaxis: holding for OR Vascular access: sara TINAJERO Goals of care: Full code Assessment and plan has been reviewed with attending, JOSE CRUZ Castellon BLOCKER * Ana Acosta MD - 06/29/2019 10:20 AM CST [facility] Trauma Surgery ICU Daily Progress Subjective [...] Range HCG, ur, POC Negative Lot Number [id number] QC Backgroud Clear Acceptable QC Control Line [...] PM Result Value Ref Range Product code D7032K00 Unit Number [id number] Product Blood Type ONEG Dispense Status RETURNED Product code W8009Z47 Unit Number [id number] Product Blood Type OPOS Dispense Status RETURNED Product code N9180N27 Unit Number [id number] Product Blood Type ONEG Dispense Status RETURNED Product code B3152A13 Unit Number [id number] Product Blood Type OPOS Dispense Status RETURNED Product code A3978B60 Unit Number [id number] Product Blood Type OPOS Dispense Status PRESUMED TRANSFUSED Product code O4569K04 Unit Number [id number] Product Blood Type OPOS Dispense Status PRESUMED TRANSFUSED Prepare RBC: 2 Units Collection Time: 06/28/19 9:18 PM Result Value Ref Range Product code I1922N31 Unit Number [id number] Product Blood Type OPOS Dispense Status RETURNED Product code B5180A77 Unit Number [id number] Product Blood Type OPOS Dispense Status RETURNED [...] Acosta M.D. General Surgery, PGY-4 10:22 AM [phone] Cosigned by Marcia Bowen MD at 08/02/2019 11:23 AM CAR BLOCKER BLOCKER BLOCKER Associated attestation - Marcia Bowen MD - 08/02/2019 11:23 AM CAR BLOCKER I have seen and examined the patient on 06/29/2019. I agree with the findings and plan of care as documented in the resident's/fellow's note. * Izabella Sinha [facility] - 06/29/2019 9:15 AM CST Patient profile has been reviewed by clinical retail pharmacy technician on 06/29/2019. Case reviewed on [...] (premix) 2,000 mg, 2,000 mg, intravenous, Q8H [facility], Mago Brian MD, Last Rate: 400 mL/hr [...] 50 mg, 50 mg, intravenous, Once, Holly Monzon MD, Stopped at 06/28/19 1858 propofol (DIPRIVAN) IV, 5-50 mcg/kg/min, intravenous, Titrated, Brittany Serrano NP, Last Rate: 12.9mL/hr at 06/29/19 0800, 20 mcg/kg/min at 06/29/19 0800 [START ON 06/30/2019] senna 1.76 mg/mL syrup 8.8 mg, 8.8 mg, feeding tube, BID, YISSEL Redmond RP, PharmD, BCPS, BCCCP BLOCKER * Luz Driscoll NP - 06/29/2019 7:34 [...] 1500: per trauma ok to remove c-collar BLOCKER * Migel Merchant MD - 06/29/2019 5:43 [...] 0.1-4 mcg/kg/min intravenous Titrated 60 mL/hr at 06/29/1927 1 mcg/kg/min at 06/29/19526 ??? primidone (MYSOLINE) [...] Migel Merchant MD Department of Orthopaedic Surgery [facility] [place] If questions arise overnight, the OTS team can be reached at: [phone] (Floor Resident ) [phone] (Consult Resident) BLOCKER * Gibran Sanchez - 06/28/2019 9:43 PM CST Spiritual Care Note: Chaplain Gibran Sanchez MBeau, [facility] 06/28/19 2100 Time Spent Start Time 1730 Stop Time 1815 Time Calculation (min) 45 min Patient Spiritual Assessment Spirituality Assessed Focus of Care Clinical Encounter Type Visited With Patient;Health care provider Response Type Crisis visit Crisis Visit Trauma Reason for visit Level 1 trauma Referral From (Page) Referral To Stratigraphy Teacher Outcomes and Interventions Outcomes Preserve dignity and respect;Demonstrating care and respect;Lessen anxiety Interventions Facilitate understanding of limitations;Offer emotional support BLOCKER * Lo Ambrosio LCSW - 06/28/2019 6:44 PM CST 06/28/19 1843 Trauma ID Able to ID Patient? Yes Patient Name Celestina Ewing Patient Date of 54 Emergency Contact Jt Contreras (friend) Contact Phone Number [phone] Level 1 SW responded to Level 1 pager. Pt self identified upon arrival with EMS. Now upgraded to level 1 and intubated. Per chart review, patient receives services through [facility]. SW contacted [facility] ([phone]) and spoke with on-call RN who provided a contact of Jt Contreras ). SW contacted Jt by phone who indicated that he is a friend of the patient's and is aware that she is at [facility]. He states that the patient has a and daughters who live in [place] but he does not have contact information for them. Jt is working to get in contact with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 WATER INSTALLER, RN, CM and other members of the health care team to assure needed interventions completed. Return patient to optimal level of self-care post discharge. Industrial Relations Manager will follow for Discharge Planning - [...] are in agreement with the aftercare plan. Industrial Relations Manager to follow as guided by team. [...] Home care service name and phone number: [facility] Durable Medical Equipment: Walker (no wheels), Wheelchair, Cane (single prong) Living Arrangements: Alone Type of Residence: Apartment Steps in home? : Yes, Outside of home Number of steps outside:: 40 steps Medication management: Unable to Assess (06/29/191419) Communication: JAYNE Briones Farm Contractor Buyer Deandra Bone, [facility] [facility] [phone] Cosigned by Deandra Bone MSW at 06/29/2019 3:11 PM CAR BLOCKER BLOCKER BLOCKER * Plan of Care - Allyson Tony [...] any d/c needs. Please call me at [phone] for further inquiries. BLOCKER * Provider Loyda - Nora Queen - 06/29/2019 11:04 AM [...] patient's medical record. Sincerely, Nora Queen RN, [facility] Health Information Management BLOCKER * Provider Loyda - Nora Queen - 06/29/2019 11:00 AM [...] patient's medical record. Sincerely, Nora Queen RN, [facility] Health Information Management BLOCKER * Plan of Care - Zulema Akers RN - 06/29/2019 8:23 AM CST Problem: Lack of Knowledge: Goal: Knowledge of restraints will improve Description INTERVENTIONS: 1. Educate patient/caregiver on restraints Outcome: Not Progressing Problem: Safety - Medical Restraint Goal: Remains free of injury from restraints (Restraint for Interference with Body Worker) Description INTERVENTIONS: 1. Identify and document the [...] Free from restraint(s) (Restraint for Interference with Body Worker) Description INTERVENTIONS: 1. Q2H and PRN: Assess [...] control, pain control, OR today, wean vasopressors BLOCKER * Plan of Care - Carina Reynoso RRT - 06/29/2019 6:16 AM CST Impression: Pt resting on full vent support. Plan: Evaluate for ability to wean from vent. Continue to wean FiO2% as tolerated. BLOCKER * Plan of Care - Lizette Dutton RN - 06/29/2019 5:36 AM CST Problem: Lack of Knowledge: Goal: Knowledge of restraints will improve Description INTERVENTIONS: 1. Educate patient/caregiver on restraints Outcome: Progressing Problem: Safety - Medical Restraint Goal: Remains free of injury from restraints (Restraint for Interference with Body Worker) Description INTERVENTIONS: 1. Identify and document the [...] Free from restraint(s) (Restraint for Interference with Body Worker) Description INTERVENTIONS: 1. Q2H and PRN: Assess [...] gtt. Pain control,. review lab results. Summary: BLOCKER * Op Note - Lo Laura DO [...] Reduction was obtained and maintained with a [id number] clamp. An 8 hole 3.5mm LSP synthes [...] DO ?? Date: 06/28/2019 Time: 11:57 pm BLOCKER * ED Procedure Note - Forrest Begum [...] the admitting team. Forrest Begum MD 06/28/191950 BLOCKER * ED Procedure Note - Forrest Begum [...] Interpretation: Interpretation: abnormal Forrest Begum MD 06/28/19 1852 BLOCKER * ED Procedure Note - Mago Brian MD - 06/28/2019 5:37 PM CAR BLOCKER Associated Order(s): Intubation Procedure Intubation Date/Time: 06/28/2019 5:37 PM Performed by: Mago Brian MD Authorized by: Forrest Begum MD [place] Protocol: RN Notified of Procedure: yes Informed [...] and matched to patient identification: n/a Responsible constitution party for transporting specimen(s) to lab determined: n/a Mago Brian MD Resident 06/28/19 1739 Cosigned by Forrest Begum MD at 06/29/2019 11:06 PM CAR BLOCKER BLOCKER BLOCKER Associated attestation - Forrest Begum MD - 06/29/2019 11:06 PM CAR BLOCKER I was present for the entire procedure documented in this encounter Plan of Treatment Pending Results Name Type Priority Associated Diagnoses Date /Time Check Sample Lab STAT 06/28/2019 6 :54 PM CAR BLOCKER Scheduled Orders Name Type Priority Associated Diagnoses Orde r Schedule Check Sample Lab STAT Once for 1 O ccurrences starting 06/28/2019 until 06/28/2019 documented as of this encounter Procedures Procedure Name Priority Date/Time Associated Diagnosis Comments POCT GLUCOSE DEVICE Routine 07/02/2019 7:35 AM CAR BLOCKER POCT GLUCOSE DEVICE Routine 07/02/2019 4:08 AM CAR BLOCKER POCT GLUCOSE DEVICE Routine 07/01/2019 11:57 PM CAR BLOCKER POCT GLUCOSE DEVICE Routine 07/01/2019 9:21 PM CAR BLOCKER CALCIUM, IONIZED Routine 07/01/2019 9:14 PM CAR BLOCKER CBC WITHOUT DIFFERENTIAL Routine 019 9:14 PM CAR BLOCKER PHOSPHORUS Routine 07/01/2019 9:14 PM CAR BLOCKER MAGNESIUM Routine 07/01/2019 9:14 PM CAR BLOCKER BASIC METABOLIC PANEL Routine 07/01/2019 9:14 PM CAR BLOCKER INFECTION PREVENTION MRSA ONLY (STAPHYLOCOCCUS AUREUS) CULTURE Routine 07/01/2019 2:19 PM CAR BLOCKER POCT GLUCOSE DEVICE Routine 07/01/2019 7:41 AM CAR BLOCKER CRITICAL CARE Routine 07/01/2019 7:09 AM CAR BLOCKER Hypotension due to drugs Acute postoperative pain Bilateral lower extremity pain Bipolar I disorder with anxious distress ([facility]) Intractable seizure disorder ([facility]) Moderate essential hypertension Syncope due to sick sinus syndrome ([facility]) EXTUBATION Routine 07/01/2019 5:26 AM CAR BLOCKER POCT GLUCOSE DEVICE Routine 06/30/2019 11:43 PM CAR BLOCKER CBC WITHOUT DIFFERENTIAL Routine 019 10:06 PM CAR BLOCKER MAGNESIUM Routine 06/30/2019 10:06 PM CAR BLOCKER BLOOD GAS, ARTERIAL Routine 06/30/2019 10:06 PM CAR BLOCKER BASIC METABOLIC PANEL Routine 06/30/2019 10:06 PM CAR BLOCKER CRITICAL CARE Routine 06/30/2019 7:50 PM CAR BLOCKER Type III open displaced comminuted fracture of shaft of left tibia, initial encounter XR CHEST 1 VIEW IP Routine 06/30/2019 7:01 PM CAR BLOCKER LACTATE, WHOLE BLOOD Routine 06/30/2019 4:23 PM CAR BLOCKER APTT Routine 06/30/2019 4:21 PM CAR BLOCKER PROTIME-INR Routine 06/30/2019 4:21 PM CAR BLOCKER CBC WITHOUT DIFFERENTIAL Routine 019 4:21 PM CAR BLOCKER FL FLUOROSCOPY < 1 HOUR IP Routine 06/30/20 19 2:51 PM CAR BLOCKER TRANSFUSE RED BLOOD CELLS Timed 06/30/2019 2:13 PM CAR BLOCKER POCT PLATELET COUNT AND HEMATOCRIT Routine 06/30/2019 1:28 PM CAR BLOCKER POC BLOOD GAS AND CHEMISTRIES, VENOUS Routine 06/30/2019 1:27 PM CAR BLOCKER DIFFERENTIAL AUTO Routine 06/30/2019 11:27 AM CAR BLOCKER CBC WITH AUTO DIFFERENTIAL Routine 06/30/2019 11:27 AM CAR BLOCKER PREPARE RBC STAT 06/30/2019 10:49 AM CAR BLOCKER POCT GLUCOSE DEVICE Routine 06/30/2019 8:07 AM CAR BLOCKER CRITICAL CARE Routine 06/30/2019 6:51 AM CAR BLOCKER Type III open displaced comminuted fracture of shaft of left tibia, initial encounter CBC WITHOUT DIFFERENTIAL Routine 019 4:35 AM CAR BLOCKER POCT GLUCOSE DEVICE Routine 06/30/2019 3:36 AM CAR BLOCKER TRANSFUSE RED BLOOD CELLS Timed 06/30/2019 1:20 AM CAR BLOCKER PREPARE RBC Timed 06/30/2019 12:45 AM CAR BLOCKER POCT GLUCOSE DEVICE Routine 06/29/2019 11:46 PM CAR BLOCKER CBC WITHOUT DIFFERENTIAL STAT 019 11:23 PM CAR BLOCKER DIFFERENTIAL AUTO Routine 06/29/2019 10:35 PM CAR BLOCKER CBC WITH AUTO DIFFERENTIAL Routine 06/29/2019 10:35 PM CAR BLOCKER PHOSPHORUS Routine 06/29/2019 10:35 PM CAR BLOCKER MAGNESIUM Routine 06/29/2019 10:35 PM CAR BLOCKER BASIC METABOLIC PANEL Routine 06/29/2019 10:35 PM CAR BLOCKER POCT GLUCOSE DEVICE Routine 06/29/2019 9:17 PM CAR BLOCKER POCT GLUCOSE DEVICE Routine 06/29/2019 7:54 PM CAR BLOCKER CRITICAL CARE Routine 06/29/2019 7:35 PM CAR BLOCKER Type III open displaced comminuted fracture of shaft of left tibia, initial encounter POCT GLUCOSE DEVICE Routine 06/29/2019 7:13 PM CAR BLOCKER XR CHEST 1 VIEW IP Routine 06/29/2019 6:40 PM CAR BLOCKER POCT GLUCOSE DEVICE Routine 06/29/2019 5:45 PM CAR BLOCKER POCT GLUCOSE DEVICE Routine 06/29/2019 5:44 PM CAR BLOCKER GENTAMICIN LEVEL TROUGH Timed 06/29/20 4:59 PM CAR BLOCKER POCT GLUCOSE DEVICE Routine 06/29/2019 4:58 PM CAR BLOCKER POCT GLUCOSE DEVICE Routine 06/29/2019 4:57 PM CAR BLOCKER POCT GLUCOSE DEVICE Routine 06/29/2019 4:00 PM CAR BLOCKER POCT GLUCOSE DEVICE Routine 06/29/2019 1:58 PM CAR BLOCKER POCT GLUCOSE DEVICE Routine 06/29/2019 1:15 PM CAR BLOCKER POCT GLUCOSE DEVICE Routine 06/29/2019 12:07 PM CAR BLOCKER POCT GLUCOSE DEVICE Routine 06/29/2019 11:13 AM CAR BLOCKER POCT GLUCOSE DEVICE Routine 06/29/2019 10:05 AM CAR BLOCKER MA ARTL CATHJ/CANNULJ MNTR/TRANSFUSION SPX PRQ Routine 06/29/2019 9:16 AM CAR BLOCKER Hypotension due to drugs POCT GLUCOSE DEVICE Routine 06/29/2019 9:06 AM CAR BLOCKER POCT GLUCOSE DEVICE Routine 06/29/2019 8:05 AM CAR BLOCKER CRITICAL CARE Routine 06/29/2019 7:33 AM CAR BLOCKER Type III open displaced comminuted fracture of shaft of left tibia, initial encounter POCT GLUCOSE DEVICE Routine 06/29/2019 7:02 AM CAR BLOCKER POCT GLUCOSE DEVICE Routine 06/29/2019 6:15 AM CAR BLOCKER DIFFERENTIAL AUTO Timed 06/29/2019 5:07 AM CAR BLOCKER CBC WITH AUTO DIFFERENTIAL Timed 06/29/2019 5:07 AM CAR BLOCKER LACTATE, WHOLE BLOOD Timed 06/29/2019 5:07 AM CAR BLOCKER POCT GLUCOSE DEVICE Routine 06/29/2019 5:04 AM CAR BLOCKER POCT GLUCOSE DEVICE Routine 06/29/2019 3:57 AM CAR BLOCKER POCT GLUCOSE DEVICE Routine 06/29/2019 3:01 AM CAR BLOCKER POCT GLUCOSE DEVICE Routine 06/29/2019 1:54 AM CAR BLOCKER POCT GLUCOSE DEVICE Routine 06/29/2019 1:16 AM CAR BLOCKER XR CHEST 1 VIEW Timed 06/29/2019 12:33 AM CAR BLOCKER POCT GLUCOSE DEVICE Routine 06/29/2019 12:02 AM CAR BLOCKER POTASSIUM, WHOLE BLOOD STAT 9 12:00 AM CAR BLOCKER DIFFERENTIAL AUTO STAT 06/29/2019 12:00 AM CAR BLOCKER CALCIUM, IONIZED STAT 06/29/2019 12:00 AM CAR BLOCKER BETA-HYDROXYBUTYRATE Routine 06/29/2019 12:00 AM CAR BLOCKER CBC WITH AUTO DIFFERENTIAL STAT 06/29/2019 12:00 AM CAR BLOCKER LACTATE, WHOLE BLOOD STAT 06/29/2019 12:00 AM CAR BLOCKER INFECTION PREVENTION MRSA ONLY (STAPHYLOCOCCUS AUREUS) CULTURE Routine 06/29/2019 12:00 AM CAR BLOCKER PHOSPHORUS STAT 06/29/2019 12:00 AM CAR BLOCKER MAGNESIUM STAT 06/29/2019 12:00 AM CAR BLOCKER BLOOD GAS, ARTERIAL STAT 06/29/2019 12:00 AM CAR BLOCKER VALPROIC ACID LEVEL, TOTAL STAT 06/29/2019 12:00 AM CAR BLOCKER BASIC METABOLIC PANEL STAT 06/29/2019 12:00 AM CAR BLOCKER CRITICAL CARE Routine 06/28/2019 11:57 PM CAR BLOCKER Type III open displaced comminuted fracture of shaft of left tibia, initial encounter Hypotension due to drugs POCT GLUCOSE DEVICE Routine 06/28/2019 11:33 PM CAR BLOCKER FL FLUOROSCOPY < 1 HOUR IP Routine 06/28/20 19 10:47 PM CAR BLOCKER B CHECK SAMPLE STAT 06/28/2019 10:33 PM CAR BLOCKER POC BLOOD GAS AND CHEMISTRIES, VENOUS Routine 06/28/2019 10:25 PM CAR BLOCKER TYPE AND SCREEN STAT 06/28/2019 10:02 PM CAR BLOCKER POCT GLUCOSE DEVICE Routine 06/28/2019 9:39 PM CAR BLOCKER PREPARE RBC STAT 06/28/2019 9:18 PM CAR BLOCKER OPEN REDUCTION INTERNAL FIXATION - TIBIA 06/28/2019 9:12 PM CAR BLOCKER Type III open displaced comminuted fracture of shaft of left tibia, initial encounter Case Notes [phone] IRRIGATION AND DEBRIDEMENT ? TIBIA 06/28/2019 9:12 PM CAR BLOCKER Type III open displaced comminuted fracture of shaft of left tibia, initial encounter Case Notes [phone] PREPARE RBC Routine 06/28/2019 8:51 PM CAR BLOCKER DIFFERENTIAL AUTO STAT 06/28/2019 8:42 PM CAR BLOCKER CBC WITH AUTO DIFFERENTIAL STAT 06/28/2019 8:42 PM CAR BLOCKER POCT GLUCOSE DEVICE Routine 06/28/2019 8:26 PM CAR BLOCKER MA CRITICAL CARE ILL/INJURED PATIENT ADDL 30 MIN Routine 06/28/2019 7:50 PM CAR BLOCKER MA CRITICAL CARE ILL/INJURED PATIENT INIT 30-74 MIN Routine 06/28/2019 7:50 PM CAR BLOCKER POCT GLUCOSE DEVICE Routine 06/28/2019 7:31 PM CAR BLOCKER POCT HCG, URINE Routine 06/28/2019 7:23 PM CAR BLOCKER XR TIBIA FIBULA LEFT 2 VIEWS ED 06/28/2019 7:20 PM CAR BLOCKER XR PELVIS 1 OR 2 VIEWS ED 9 7:19 PM CAR BLOCKER XR TIBIA FIBULA RIGHT2 VIEWS ED 06/28/2019 7:19 PM CAR BLOCKER XR ANKLE LEFT 3 OR MORE VIEWS ED 06/28/2019 7:19 PM CAR BLOCKER XR CHEST 1 VIEW ED 06/28/2019 7:19 PM CAR BLOCKER XR FEMUR LEFT 2 OR MORE VIEWS ED 06/28/2019 7:19 PM CAR BLOCKER XR KNEE LEFT 1 OR 2 VIEWS ED 06/28/2019 7:19 PM CAR BLOCKER XR ANKLE RIGHT 3 OR MORE VIEWS ED 06/28/2019 7:18 PM CAR BLOCKER FENTANYL CONFIRMATION, MS URINE STAT 06/28/2019 6:54 PM CAR BLOCKER DRUGS OF ABUSE SCREEN, URINE WITH REFLEX CONFIRMATION STAT 06/28/2019 6:54 PM CAR BLOCKER POTASSIUM, WHOLE BLOOD STAT 9 6:54 PM CAR BLOCKER OPIATES CONFIRMATION MS, URINE STAT 06/28/2019 6:54 PM CAR BLOCKER URINALYSIS AND REFLEX TO MICROSCOPIC AND CULTURE STAT 06/28/2019 6:54 PM CAR BLOCKER URINALYSIS, MICROSCOPIC ONLY STAT 06/28/2019 6:54 PM CAR BLOCKER BLOOD GAS, ARTERIAL STAT 06/28/2019 6:54 PM CAR BLOCKER ECG 12-LEAD Routine 06/28/2019 6:[address] CHEST ABDOMEN PELVIS W CONTRAST ED 06/28/2019 6:27 PM CAR BLOCKER CTA LOWER EXTREMITY LEFT NOT FOR ISCHEMIA ED 06/28/2019 6:[address] HEAD AND CERVICAL SPINE WO CONTRAST ED 06/28/2019 6:21 PM CAR BLOCKER ED INTUBATION Routine 06/28/2019 5:37 PM CAR BLOCKER EXTRINSIC THROMBOELASTOMETRY (EXTEM) STAT 06/28/2019 5:35 PM CAR BLOCKER THROMBOCYTE INHIBITED FIBRINOGEN (FIBTEM) STAT 06/28/2019 5:35 PM CAR BLOCKER BLOOD GAS, VENOUS STAT 06/28/2019 5:35 PM CAR BLOCKER POCT CREATININE - DEVICE Routine 019 5:27 PM CAR BLOCKER POCT LACTATE - DEVICE Routine 06/28/2019 5:23 PM CAR BLOCKER POCT GLUCOSE DEVICE Routine 06/28/2019 5:18 PM CAR BLOCKER MA INSJ NON-TUNNELED CENTRAL VENOUS CATH AGE 5 YR/> Routine 06/28/2019 5:10 PM CAR BLOCKER Type III open displaced comminuted fracture of shaft of left tibia, initial encounter DIFFERENTIAL AUTO STAT 06/28/2019 5:02 PM CAR BLOCKER CRITICAL RESULT CALLBACK CHEMISTRY STAT 06/28/2019 5:02 PM CAR BLOCKER VERIFY NOW ASPIRIN STAT 06/28/2019 5:02 PM CAR BLOCKER CBC WITH AUTO DIFFERENTIAL STAT 06/28/2019 5:02 PM CAR BLOCKER TROPONIN I STAT 06/28/2019 5:02 PM CAR BLOCKER APTT STAT 06/28/2019 5:02 PM CAR BLOCKER PROTIME-INR STAT 06/28/2019 5:02 PM CAR BLOCKER TYPE AND SCREEN STAT 06/28/2019 5:02 PM CAR BLOCKER CREATINE KINASE (CK), TOTAL STAT 06/28/2019 5:02 PM CAR BLOCKER ETHANOL STAT 06/28/2019 5:02 PM CAR BLOCKER COMPREHENSIVE METABOLIC PANEL STAT 06/28/2019 5:02 PM CAR BLOCKER documented in this encounter Results * POCT glucose (07/02/2019 7:35 AM CAR BLOCKER) Glucose, POC 155 70 - 199 mg/dL [facility] Blood specimen (specimen) 07/02/2019 7:35 AM CAR BLOCKER 07/02/2019 7:35 AM CAR BLOCKER us Dean Ritter MD LAB POCT ORDERABLES - DEV ICE Final Result [facility] MONTO[facility] [address] * POCT glucose (07/02/2019 4:08 AM CAR BLOCKER) Glucose, POC 148 70 - 199 mg/dL [facility] Blood specimen (specimen) 07/02/2019 4:08 AM CAR BLOCKER 07/02/2019 4:08 AM CAR BLOCKER Dean Ritter MD LAB POCT ORDERABLES [place] [address] * POCT glucose (07/01/2019 11:57 PM CAR BLOCKER) [facility] Signature Glucose, POC 119 70 - 199 mg/dL [facility] Blood specimen (specimen) 07/01/2019 11:57 PM CAR BLOCKER 07/01/2019 11:57 PM CAR BLOCKER us Dean Ritter MD LAB POCT ORDERABLES - DEV ICE Final Result Performing Organization Address City/[facility]/[place] [address] * POCT glucose (07/01/2019 9:21 PM CAR BLOCKER) [facility] Signature Glucose, POC 169 70 - 199 mg/dL [facility] Blood specimen (specimen) 07/01/2019 9:21 PM CAR BLOCKER 07/01/2019 9:21 PM CAR BLOCKER Dean Ritter MD LAB POCT ORDERABLES - DEV ICE Final Result Performing Organization Address City/[facility] [place] [place] [address] * Phosphorus (07/01/2019 9:14 PM CAR BLOCKER) Phosphorus, pl 2.7 2.3 - 4.5 mg/dL [facility] Blood specimen (specimen) 07/01/2019 9:14 PM CAR BLOCKER 07/01/2019 9:23 PM CAR BLOCKER Roxanne Gomez SOLAR HOT WATER INSTALLER LAB BLOOD ORDERABLES Ellyn l Result Performing Organization Address [facility] Co de Phone Number [facility] [place] [address] * Magnesium (07/01/2019 9:14 PM CAR BLOCKER) Pathologist [facility] Magnesium 2.0 1.4 - 2.5 mg/dL [facility] Blood specimen (specimen) 07/01/2019 9:14 PM CAR BLOCKER 07/01/2019 9:23 PM CAR BLOCKER Roxanne Gomez NP LAB BLOOD ORDERABLES Ellyn l Result Performing Organization Address [facility] de Phone Number [facility] [place] [address] * (ABNORMAL) Calcium, ionized (07/01/2019 9:14 PM CAR BLOCKER) [facility] Calcium, Ionized 3.91(L) 4.50 - 5.10 mg/dL [facility] Blood specimen (specimen) 07/01/2019 9:14 PM CAR BLOCKER 07/01/2019 9:23 PM CAR BLOCKER Roxanne Gomez SOLAR HOT WATER INSTALLER LAB BLOOD ORDERABLES Ellyn l Result Performing Organization Address [facility] [place] [address] * (ABNORMAL) Basic metabolic panel (07/01/2019 9:14 PM CAR BLOCKER) [facility] Sodium 135 135 - 145 mmol/L [facility] Potassium, pl 4.7 3.3 - 4.9 mmol/L [facility] Chloride 103 97 - 110 mmol/L [facility] CO2 24 22 - 32 mmol/L [facility] Anion gap 8 2 - 15 mmol/L [facility] BUN 12 8 - 25 mg/dL [facility] Creatinine 0.96 0.60 - 1.10 mg/dL [facility] Glucose 164 70 - 199 mg/dL [facility] Comment: Interpretive Data Fasting glucose >/= 126 [...] 2017. Calcium 7.6(L) 8.5 - 10.3 mg/dL [facility] Blood specimen (specimen) 07/01/2019 9:14 PM CAR BLOCKER 07/01/2019 9:23 PM CAR BLOCKER us Roxanne Gomez SOLAR HOT WATER INSTALLER LAB BLOOD ORDERABLES Ellyn adams Result [facility] [place] [address] * (ABNORMAL) CBC without differential (07/01/2019 9:14 PM CAR BLOCKER) WBC 17.4(H) 3.8 - 9.9 K/cumm [facility] Hgb 7.6(L) 11.9 - 15.5 g/dL [facility] Hct 23.6(L) 35.6 - 45.5 % [facility] Plt 174 150 - 400 K/cumm [facility] MPV 10.8 9.1 - 12.3 fL [facility] RBC 2.72(L) 3.90 - 5.20 M/cumm [facility] MCV 86.8 81.3 - 96.4 fL [facility] MCH 27.9 27.1 - 33.3 pg [facility] MCHC 32.2(L) 32.3 - 35.7 g/dL [facility] RDW CV 17.8(H) 11.1 - 14.9 % [facility] RDW SD 55.1(H) 35.7 - 48.1 fL [facility] NRBC abs 0.18(H) 0.00 - 0.01 K/cumm [facility] Blood specimen (specimen) 07/01/2019 9:14 PM CAR BLOCKER 07/01/2019 9:33 PM CAR BLOCKER Roxanne Gomez NP LAB BLOOD ORDERABLES Ellyn l Result Performing Organization Address [facility] Co de Phone Number [facility] [place] [address] * Infection Prevention MRSA Only (Staphylococcus aureus) Culture Nasal (07/01/2019 2:19 PM CAR BLOCKER) Report Final Report: Negative [facility] Nasal 07/01/2019 2:19 PM CAR BLOCKER 07/01/2019 2:54 PM CAR BLOCKER Narrative [facility] - 07/02/2019 6:08 PM CAR BLOCKER Testing performed by [facility] ([phone]). us Roxanne Gomez NP LAB MICROBIOLOGY - GENERA L ORDERABLES Final Result Performing Organization Address [facility] Co de Phone Number [facility] Department [place] [address] * POCT glucose (07/01/2019 7:41 AM CAR BLOCKER) Glucose, POC 156 70 - 199 mg/dL [facility] Blood specimen (specimen) 07/01/2019 7:41 AM CAR BLOCKER 07/01/2019 7:41 AM CAR BLOCKER Dean Ritter MD LAB POCT ORDERABLES - DEV ICE Final Result Performing Organization Address [facility]/ZIP Co de Phone Number [facility] [place] [address] * Critical Care (07/01/2019 7:09 AM CAR BLOCKER) Narrative Roxanne Gomez NP - 07/01/2019 7:09 AM CAR BLOCKER Roxanne Gomez NP ? 07/01/2019 ??4:13 PM [...] plan with the patient's team and other medical/instructional consultant staff. This time was in addition [...] in the medical record us Roxanne Gomez SOLAR HOT WATER INSTALLER IN CLINIC/BEDSIDE ORDERAB LES Final Result * POCT glucose (06/30/2019 11:43 PM CAR BLOCKER) [facility] Signature Glucose, POC 98 70 - 199 mg/dL [facility] Blood specimen (specimen) 06/30/2019 11:43 PM CAR BLOCKER 06/30/2019 11:43 PM CAR BLOCKER us Dean Ritter MD LAB POCT ORDERABLES - DEV ICE Final Result [facility] [place] [address] * Magnesium (06/30/2019 10:06 PM CAR BLOCKER) Pathologist [facility] Magnesium 2.1 1.4 - 2.5 mg/dL [facility] Blood specimen (specimen) 06/30/2019 10:06 PM CAR BLOCKER 06/30/2019 10:18 PM CAR BLOCKER Dean Ritter MD LAB BLOOD ORDERABLES Ellyn l Result Performing Organization Address [facility] de Phone Number [facility] Department [place] [address] * (ABNORMAL) Blood gas, arterial (06/30/2019 10:06 PM CAR BLOCKER) [facility] pH, Art 7.40 7.35 - 7.45 [facility] PCO2, Arterial 42 35 - 45 mmHg [facility] PO2, Arterial 107 83 - 108 mmHg [facility] HCO3 Art (Calculated) 27 20 - 30 mmol/L [facility] BE, art 1 mmol/L [facility] Comment: Interpretive Data No Reference Range Established Current Interpretive Data was last revised on 2017 O2 Sat Art (Measured) 98(H) 90 - 95 % [facility] Blood specimen (specimen) 06/30/2019 10:06 PM CAR BLOCKER 06/30/2019 10:17 PM CAR BLOCKER Roxanne Gomez NP LAB BLOOD ORDERABLES Ellyn l Result Performing Organization Address [facility] de Phone Number [facility] [place] [address] * (ABNORMAL) Basic metabolic panel (06/30/2019 10:06 PM CAR BLOCKER) [facility] Sodium 139 135 - 145 mmol/L [facility] Potassium, pl 4.2 3.3 - 4.9 mmol/L [facility] Chloride 105 97 - 110 mmol/L [facility] CO2 26 22 - 32 mmol/L [facility] Anion gap 8 2 - 15 mmol/L [facility] BUN 14 8 - 25 mg/dL [facility] Creatinine 0.95 0.60 - 1.10 mg/dL [facility] Glucose 130 70 - 199 mg/dL [facility] Comment: Interpretive Data Fasting glucose >/= 126 [...] 2017. Calcium 7.9(L) 8.5 - 10.3 mg/dL [facility] Blood specimen (specimen) 06/30/2019 10:06 PM CAR BLOCKER 06/30/2019 10:18 PM CAR BLOCKER Roxanne Gomez [employer] LAB BLOOD ORDERABLES Ellyn adams Result [facility] [place] [address] * (ABNORMAL) CBC without differential (06/30/2019 10:06 PM CAR BLOCKER) WBC 16.5(H) 3.8 - 9.9 K/cumm [facility] Hgb 8.2(L) 11.9 - 15.5 g/dL [facility] Hct 25.5(L) 35.6 - 45.5 % [facility] Plt 166 150 - 400 K/cumm [facility] MPV 11.6 9.1 - 12.3 fL [facility] RBC 2.97(L) 3.90 - 5.20 M/cumm [facility] MCV 85.9 81.3 - 96.4 fL [facility] MCH 27.6 27.1 - 33.3 pg [facility] MCHC 32.2(L) 32.3 - 35.7 g/dL [facility] RDW CV 17.7(H) 11.1 - 14.9 % [facility] RDW SD 54.6(H) 35.7 - 48.1 fL [facility] NRBC abs 0.23(H) 0.00 - 0.01 K/cumm [facility] Blood specimen (specimen) 06/30/2019 10:06 PM CAR BLOCKER 06/30/2019 10:33 PM CAR BLOCKER us Roxanne Gomez NP LAB BLOOD ORDERABLES Ellyn adams Result [facility] [place] [address] * Critical Care (06/30/2019 7:50 PM CAR BLOCKER) Narrative OfJameson calvin MD - 06/30/2019 7:50 PM CAR BLOCKER JOSE CRUZ Hinton ? 07/01/2019 ??5:31 AM [...] plan with the ICU team and other medical/instructional consultant staff, making frequent assessments and decisions [...] View - in AM (06/30/2019 7:01 PM CAR BLOCKER) Anatomical Region Laterality Modality Body, Chest N/A Computed Radiogr aphy 07/01/2019 9:40 AM CAR BLOCKER Impressions 07/01/2019 9:41 AM CAR BLOCKER Prior comparison 06/29/2019. ??There is an endotracheal tube terminating 1.6 cm above the jesús. ??There is a nasogastric tube with the tip terminating below the diaphragm and off the cwxju-lt-bamd. There are small lung volumes. ??Patchy areas of atelectasis are noted bilaterally. ??No pneumothorax, pleural effusion, or pulmonary edema. No focal consolidation. ??The heart size is normal. ??The aorta is mildly tortuous with atherosclerotic calcification noted at the aortic arch. Dictated by: nAanth Bar M.D. The radiology attending physician has personally reviewed this study, and had reviewed and/or edited this written report and agrees with it. Electronically signed by: Jason Tellez M.D. Narrative 07/01/2019 9:41 AM CAR BLOCKER EXAMINATION: 1 view chest radiograph Procedure Note Jason Tellez MD - 07/01/2019 EXAMINATION: 1 view chest radiograph IMPRESSION: Prior comparison 06/29/2019. There is an endotracheal tube terminating 1.6 cm above the jesús. There is a nasogastric tube with the tip terminating below the diaphragm and off the [id number]-qd-[id number]. There are small lung volumes. Patchy areas [...] signed by: Jason Tellez M.D. Roxanne Gomez [employer] IMG XR PROCEDURES Final R esult * Lactate, whole blood (06/30/2019 4:23 PM CAR BLOCKER) Lactate, bld 1.8 0.7 - 2.0 mmol/L [facility] Blood specimen (specimen) 06/30/2019 4:23 PM CAR BLOCKER 06/30/2019 4:31 PM CAR BLOCKER Hilda Lord NP LAB BLOOD ORDERABLES Final Re sult Performing Organization Address [facility] de Phone Number [facility] [place] [address] * Protime-INR (06/30/2019 4:21 PM CAR BLOCKER) PT 12.8 8.6 - 13.0 sec [facility] INR 1.2 0.8 - 1.2 [facility] Comment: Interpretive data Oral anticoagulant therapeutic ranges: Venous thromboembolism prophylaxis or treatment: 2.0-3.0 CARDIOLOGY Standard range: 2.0-3.0 High-intensity range: 2.5-3.5 Refer to indication-specific guidelines for appropriate target ranges for prosthetic heart valve replacement. Current interpretive data was last revised on 2019. Blood specimen (specimen) 06/30/2019 4:21 PM CAR BLOCKER 06/30/2019 4:31 PM CAR BLOCKER Result [facility] Roxanne Gomez NP LAB BLOOD ORDERABLES Ellyn l Result Performing Organization Address [facility] de Phone Number [facility] [place] [address] * (ABNORMAL) aPTT (06/30/2019 4:21 PM CAR BLOCKER) aPTT 22(L) 25 - 37 sec [facility] Comment: Interpretive data Heparin therapeutic range: 60-90 seconds Range based on correlation with therapeutic heparin activity range of 0.3-0.7 units/ml. Current interpretive data was last revised on 2019. Blood specimen (specimen) 06/30/2019 4:21 PM CAR BLOCKER 06/30/2019 4:31 PM CAR BLOCKER Roxanne Gomez NP LAB BLOOD ORDERABLES Ellyn adams Result Performing Organization Address [facility] Co de Phone Number [facility] Department [place] [address] * (ABNORMAL) CBC without differential (06/30/2019 4:21 PM CAR BLOCKER) WBC 17.5(H) 3.8 - 9.9 K/cumm [facility] Hgb 9.0(L) 11.9 - 15.5 g/dL [facility] Hct 27.7(L) 35.6 - 45.5 % [facility] Plt 189 150 - 400 K/cumm [facility] MPV 11.0 9.1 - 12.3 fL [facility] RBC 3.16(L) 3.90 - 5.20 M/cumm [facility] MCV 87.7 81.3 - 96.4 fL [facility] MCH 28.5 27.1 - 33.3 pg [facility] MCHC 32.5 32.3 - 35.7 g/dL [facility] RDW CV 18.0(H) 11.1 - 14.9 % [facility] RDW SD 57.1(H) 35.7 - 48.1 fL [facility] NRBC abs 0.13(H) 0.00 - 0.01 K/cumm [facility] Blood specimen (specimen) 06/30/2019 4:21 PM CAR BLOCKER 06/30/2019 4:31 PM CAR BLOCKER Roxanne Gomez NP LAB BLOOD ORDERABLES Ellyn adams Result Performing Organization Address [facility]/ZIP Co de Phone Number [facility] [place] [place] [address] * FL Fluoroscopy < 1 Hour (06/30/2019 2:51 PM CAR BLOCKER) Narrative [email or web address] - 06/30/2019 2:52 PM CAR BLOCKER The images from this study are not interpreted by Radiology. ??Please refer to the physician's procedure / OR operative note. us Jacobo Shoemaker MD IMG FLUOROSCOPY PROCEDURES Final Result Performing Organization Address [facility] de Phone Number [email or web address] * Transfuse RBC (06/30/2019 2:16 PM CAR BLOCKER) Blood specimen (specimen) Rui Mike MD BLOOD TRANSFUSION ORDERABLES F inal Result Performing Organization Address [facility] de Phone Number [facility] [place] [place] [address] * (ABNORMAL) POCT platelet count and hematocrit (06/30/2019 1:28 PM CAR BLOCKER) Pathologist [facility] Hematocrit POC 23.1(L) 36.1 - 44.3 % [facility] Platelet POC 188 140 - 440 K/cumm [facility] Blood specimen (specimen) 06/30/2019 1:28 PM CAR BLOCKER 06/30/2019 1:28 PM CAR BLOCKER Dean Ritter MD LAB POCT ORDERABLES - DEV ICE Final Result Performing Organization Address [facility] [place] [address] * (ABNORMAL) POC Blood Gas and Chemistries, Venous - (06/30/2019 1:27 PM CAR BLOCKER) pH, Rj POC 7.36 7.32 - 7.43 [facility] pCO2, rj POC 47 40 - 50 mmHg [facility] pO2, rj POC 43 mmHg [facility] Na, POC 138 135 - 145 mmol/L [facility] K POC 3.8 3.3 - 4.9 mmol/L [facility] Cl, POC 107 97 - 110 mmol/L [facility] Ionized Ca, POC 5.20(H) 4.50 - 5.10 mg/dL [facility] Glucose, POC 132 70 - 199 mg/dL [facility] Lactate, POC 1.4 0.7 - 2.2 mmol/L [facility] O2 Sat, Rj POC (Gorge) 74 % [facility] Base excess, POC 0.6 mmol/L [facility] HCO3, Rj POC 27 20 - 30 mmol/L [facility] Hct, POC 23.0(L) 36.3 - 45.3 % [facility] Total Hb, POC 7.7(L) 11.9 - 15.5 g/dL [facility] O2 Sat, Rj POC (Calc) 76 % [facility] Blood specimen (specimen) 06/30/2019 1:27 PM CAR BLOCKER 06/30/2019 1:27 PM CAR BLOCKER us Dean Ritter MD LAB POCT ORDERABLES - DEV ICE Final Result [facility] Department [place] [address] * (ABNORMAL) Differential, auto (06/30/2019 11:27 AM CAR BLOCKER) Neutrophil abs 8.8(H) 1.7 - 6.5 K/cumm [facility] Imm gran abs 0.2(H) 0.0 - 0.1 K/cumm [facility] Lymphocyte abs 2.9 0.8 - 3.3 K/cumm [facility] Monocyte abs 1.8(H) 0.2 - 0.8 K/cumm [facility] Eosinophil abs 0.1 0.0 - 0.5 K/cumm [facility] Basophil abs 0.0 0.0 - 0.1 K/cumm [facility] Neutrophil pct 63.4 % [facility] Comment: Interpretive Data Percent cell count reference ranges are not reported, since discordance with absolute values may lead to misinterpretation of CBC data. Current Interpretive Data was last revised on 2017. Imm gran pct 1.5 % [facility] Comment: Interpretive Data Percent cell count reference ranges are not reported, since discordance with absolute values may lead to misinterpretation of CBC data. Current Interpretive Data was last revised on 2017. Lymphocyte pct 20.8 % [facility] Comment: Interpretive Data Percent cell count reference ranges are not reported, since discordance with absolute values may lead to misinterpretation of CBC data. Current Interpretive Data was last revised on 2017. Monocyte pct 13.1 % [facility] Comment: Interpretive Data Percent cell count reference ranges are not reported, since discordance with absolute values may lead to misinterpretation of CBC data. Current Interpretive Data was last revised on 2017. Eosinophil pct 0.9 % [facility] Comment: Interpretive Data Percent cell count reference ranges are not reported, since discordance with absolute values may lead to misinterpretation of CBC data. Current Interpretive Data was last revised on 2017. Basophil pct 0.3 % [facility] Comment: Interpretive Data Percent cell count reference ranges are not reported, since discordance with absolute values may lead to misinterpretation of CBC data. Current Interpretive Data was last revised on 2017. Blood specimen (specimen) 06/30/2019 11:27 AM CAR BLOCKER 06/30/2019 11:44 AM CAR BLOCKER us Hilda Lord [employer] LAB BLOOD ORDERABLES Final Re sult [facility] Department of Laboratories [place], [place] [id number] * (ABNORMAL) CBC with auto differential (06/30/2019 11:27 AM CAR BLOCKER) WBC 14.0(H) 3.8 - 9.9 K/cumm [facility] Hgb 7.7(L) 11.9 - 15.5 g/dL [facility] Hct 24.0(L) 35.6 - 45.5 % [facility] Plt 166 150 - 400 K/cumm [facility] MPV 11.7 9.1 - 12.3 fL [facility] RBC 2.78(L) 3.90 - 5.20 M/cumm [facility] MCV 86.3 81.3 - 96.4 fL [facility] MCH 27.7 27.1 - 33.3 pg [facility] MCHC 32.1(L) 32.3 - 35.7 g/dL [facility] RDW CV 18.5(H) 11.1 - 14.9 % [facility] RDW SD 57.6(H) 35.7 - 48.1 fL [facility] NRBC abs 0.07(H) 0.00 - 0.01 K/cumm [facility] Blood specimen (specimen) 06/30/2019 11:27 AM CAR BLOCKER 06/30/2019 11:44 AM CAR BLOCKER Hilda Lord [employer] LAB BLOOD ORDERABLES Final Re sult [facility] Department [place] [address] * Prepare RBC: 2 Units (06/30/2019 10:49 AM CAR BLOCKER) Product code [id number] [facility] Unit Number [id number]- L [facility] Product Blood Type APOS [facility] Dispense Status RETURNED [facility] Product code [id number] [facility] Unit Number [id number]- U [facility] Product Blood Type APOS [facility] Dispense Status PRESUMED TRANSFUSED [facility] Blood specimen (specimen) 06/30/2019 10:49 AM CAR BLOCKER 06/30/2019 10:49 AM CAR BLOCKER Narrative [facility] - 07/01/2019 9:12 AM CAR BLOCKER Are special requirements needed? (all products are leukoreduced)->No Date required:-[id number] LRRBC # of Qoirt-[id number] Reasons:-Intra-op transfusion} us Rui Mike MD BLOOD BANK PRODUCT ORDERABLES Final Result Performing Organization Address City/[facility]/ZIP Co de Phone Number [facility] [place] [place] [address] * POCT glucose (06/30/2019 8:07 AM CAR BLOCKER) Glucose, POC 140 70 - 199 mg/dL [facility] Blood specimen (specimen) 06/30/2019 8:07 AM CAR BLOCKER 06/30/2019 8:07 AM CAR BLOCKER Dean Ritter MD LAB POCT ORDERABLES - DEV ICE Final Result Performing Organization Address [facility] Co de Phone Number [facility] [place] [address] * Critical Care (06/30/2019 6:51 AM CAR BLOCKER) Narrative Roxanne Gomez NP - 06/30/2019 6:51 AM CAR BLOCKER Roxanne Gomez NP ? 06/30/2019 ??5:18 PM [...] plan with the patient's team and other medical/instructional consultant staff. This time was in addition [...] (ABNORMAL) CBC without differential (06/30/2019 4:35 AM CAR BLOCKER) WBC 17.1(H) 3.8 - 9.9 K/cumm [facility] Hgb 8.0(L) 11.9 - 15.5 g/dL [facility] Hct 24.2(L) 35.6 - 45.5 % [facility] Plt 188 150 - 400 K/cumm [facility] MPV 11.4 9.1 - 12.3 fL [facility] RBC 2.87(L) 3.90 - 5.20 M/cumm [facility] MCV 84.3 81.3 - 96.4 fL [facility] MCH 27.9 27.1 - 33.3 pg [facility] MCHC 33.1 32.3 - 35.7 g/dL [facility] RDW CV 18.4(H) 11.1 - 14.9 % [facility] RDW SD 55.6(H) 35.7 - 48.1 fL [facility] NRBC abs 0.05(H) 0.00 - 0.01 K/cumm [facility] Blood specimen (specimen) 06/30/2019 4:35 AM CAR BLOCKER 06/30/2019 4:52 AM CAR BLOCKER us Ina BILLINGSLEY LAB BLOOD ORDERABLES Ellyn l Result [facility] Department [place] [address] * POCT glucose (06/30/2019 3:36 AM CAR BLOCKER) Pathologist [facility] Glucose, POC 126 70 - 199 mg/dL [facility] Blood specimen (specimen) 06/30/2019 3:36 AM CAR BLOCKER 06/30/2019 3:36 AM CAR BLOCKER Dean Ritter MD LAB POCT ORDERABLES - DEV ICE Final Result Performing Organization Address [facility]/ZIP Co de Phone Number [facility] [place] [address] * Transfuse RBC (06/30/2019 3:07 AM CAR BLOCKER) Blood specimen (specimen) Ina BILLINGSLEY BLOOD TRANSFUSION ORDERAB LES Final Result Performing Organization Address City/[facility]/ZIP Co de Phone Number [facility] [place] [address] * Transfuse RBC: 1 Units (06/30/2019 3:07 AM CAR BLOCKER) Blood specimen (specimen) Ina BILLINGSLEY BLOOD TRANSFUSION ORDERAB LES Final Result * Prepare RBC: 1 Units (06/30/2019 12:45 AM CAR BLOCKER) Product code [id number] [facility] Unit Number [id number] [facility] Product Blood Type APOS [facility] Dispense Status PRESUMED TRANSFUSED [facility] Blood specimen (specimen) 06/30/2019 12:45 AM CAR BLOCKER 06/30/2019 12:45 AM CAR BLOCKER Narrative [facility] - 07/01/2019 12:49 AM CAR BLOCKER Are special requirements needed? (all products are leukoreduced)->No Date required:-[id number] LRRBC # of Ajuux-[id number] Reasons:-Hgb <7 g/dL} Ina BILLINGSLEY BLOOD BANK PRODUCT ORDERA BLES Final Result Performing Organization Address City/[facility]/[place] [address] * POCT glucose (06/29/2019 11:46 PM CAR BLOCKER) Glucose, POC 136 70 - 199 mg/dL [facility] Blood specimen (specimen) 06/29/2019 11:46 PM CAR BLOCKER 06/29/2019 11:46 PM CAR BLOCKER Dean Ritter MD LAB POCT ORDERABLES - DEV ICE Final Result [facility] Department [place] [address] * (ABNORMAL) CBC without differential (06/29/2019 11:23 PM CAR BLOCKER) WBC 14.7(H) 3.8 - 9.9 K/cumm [facility] Hgb 6.5(L) 11.9 - 15.5 g/dL [facility] Hct 20.2(L) 35.6 - 45.5 % [facility] Plt 173 150 - 400 K/cumm [facility] MPV 11.4 9.1 - 12.3 fL [facility] RBC 2.39(L) 3.90 - 5.20 M/cumm [facility] MCV 84.5 81.3 - 96.4 fL [facility] MCH 27.2 27.1 - 33.3 pg [facility] MCHC 32.2(L) 32.3 - 35.7 g/dL [facility] RDW CV 20.6(H) 11.1 - 14.9 % [facility] RDW SD 63.5(H) 35.7 - 48.1 fL [facility] NRBC abs 0.04(H) 0.00 - 0.01 K/cumm [facility] Blood specimen (specimen) 06/29/2019 11:23 PM CAR BLOCKER 06/29/2019 11:40 PM CAR BLOCKER Ina BILLINGSLEY LAB BLOOD ORDERABLES Ellyn l Result [facility] Department [place] [address] * Phosphorus (06/29/2019 10:35 PM CAR BLOCKER) Phosphorus, pl 3.5 2.3 - 4.5 mg/dL [facility] Blood specimen (specimen) 06/29/2019 10:35 PM CAR BLOCKER 06/29/2019 10:51 PM CAR BLOCKER us Dean Ritter MD LAB BLOOD ORDERABLES Ellyn adams Result [facility] [place] [address] * (ABNORMAL) Differential, auto (06/29/2019 10:35 PM CAR BLOCKER) Neutrophil abs 8.8(H) 1.7 - 6.5 K/cumm [facility] Imm gran abs 0.2(H) 0.0 - 0.1 K/cumm [facility] Lymphocyte abs 4.7(H) 0.8 - 3.3 K/cumm [facility] Monocyte abs 1.6(H) 0.2 - 0.8 K/cumm [facility] Eosinophil abs 0.1 0.0 - 0.5 K/cumm [facility] Basophil abs 0.0 0.0 - 0.1 K/cumm [facility] Neutrophil pct 57.3 % [facility] Comment: Interpretive Data Percent cell count reference ranges are not reported, since discordance with absolute values may lead to misinterpretation of CBC data. Current Interpretive Data was last revised on 2017. Imm gran pct 1.2 % [facility] Comment: Interpretive Data Percent cell count reference ranges are not reported, since discordance with absolute values may lead to misinterpretation of CBC data. Current Interpretive Data was last revised on 2017. Lymphocyte pct 30.8 % [facility] Comment: Interpretive Data Percent cell count reference ranges are not reported, since discordance with absolute values may lead to misinterpretation of CBC data. Current Interpretive Data was last revised on 2017. Monocyte pct 10.1 % [facility] Comment: Interpretive Data Percent cell count reference ranges are not reported, since discordance with absolute values may lead to misinterpretation of CBC data. Current Interpretive Data was last revised on 2017. Eosinophil pct 0.4 % [facility] Comment: Interpretive Data Percent cell count reference ranges are not reported, since discordance with absolute values may lead to misinterpretation of CBC data. Current Interpretive Data was last revised on 2017. Basophil pct 0.2 % [facility] Comment: Interpretive Data Percent cell count reference ranges are not reported, since discordance with absolute values may lead to misinterpretation of CBC data. Current Interpretive Data was last revised on 2017. Blood specimen (specimen) 06/29/2019 10:35 PM CAR BLOCKER 06/29/2019 10:50 PM CAR BLOCKER Hilda Hang Lord NP LAB BLOOD ORDERABLES Final Re sult Performing Organization Address City/[facility]/ZIP Co de Phone Number [facility] Department [place] [address] * Magnesium (06/29/2019 10:35 PM CAR BLOCKER) [facility] Magnesium 1.7 1.4 - 2.5 mg/dL [facility] Blood specimen (specimen) 06/29/2019 10:35 PM CAR BLOCKER 06/29/2019 10:51 PM CAR BLOCKER Hilda Hang Lord NP LAB BLOOD ORDERABLES Final Re sult Performing Organization Address [facility] Co de Phone Number [facility] Department [place] [address] * (ABNORMAL) Basic metabolic panel (06/29/2019 10:35 PM CAR BLOCKER) Pathologist [facility] Sodium 139 135 - 145 mmol/L [facility] Potassium, pl 4.6 3.3 - 4.9 mmol/L [facility] Chloride 105 97 - 110 mmol/L [facility] CO2 30 22 - 32 mmol/L [facility] Anion gap 4 2 - 15 mmol/L [facility] BUN 22 8 - 25 mg/dL [facility] Creatinine 1.14(H) 0.60 - 1.10 mg/dL [facility] Glucose 145 70 - 199 mg/dL [facility] Comment: Interpretive Data Fasting glucose >/= 126 [...] 2017. Calcium 8.3(L) 8.5 - 10.3 mg/dL [facility] Blood specimen (specimen) 06/29/2019 10:35 PM CAR BLOCKER 06/29/2019 10:51 PM CAR BLOCKER us Hilda Lord NP LAB BLOOD ORDERABLES Final Re sult [facility] [place] [address] * (ABNORMAL) CBC with auto differential (06/29/2019 10:35 PM CAR BLOCKER) WBC 15.3(H) 3.8 - 9.9 K/cumm [facility] Hgb 6.4(C) 11.9 - 15.5 g/dL [facility] Comment:Critical result call ed to and read back by HERMILO NGUYEN RN on 06 29 2019 at 2302 to Alexys Powers. Hct 19.9(L) 35.6 - 45.5 % [facility] Plt 178 150 - 400 K/cumm [facility] MPV 10.8 9.1 - 12.3 fL [facility] RBC 2.36(L) 3.90 - 5.20 M/cumm [facility] MCV 84.3 81.3 - 96.4 fL [facility] MCH 27.1 27.1 - 33.3 pg [facility] MCHC 32.2(L) 32.3 - 35.7 g/dL [facility] RDW CV 20.6(H) 11.1 - 14.9 % [facility] RDW SD 62.4(H) 35.7 - 48.1 fL [facility] NRBC abs 0.05(H) 0.00 - 0.01 K/cumm [facility] Blood specimen (specimen) 06/29/2019 10:35 PM CAR BLOCKER 06/29/2019 10:50 PM CAR BLOCKER us Hilda Lord [employer] LAB BLOOD ORDERABLES Final Re sult Performing Organization Address City/[facility] Co de Phone Number [facility] [place] [place] [address] * POCT glucose (06/29/2019 9:17 PM CAR BLOCKER) Glucose, POC 128 70 - 199 mg/dL [facility] Blood specimen (specimen) 06/29/2019 9:17 PM CAR BLOCKER 06/29/2019 9:17 PM CAR BLOCKER us Dean Ritter MD LAB POCT ORDERABLES - DEV ICE Final Result Performing Organization Address [facility] Co de Phone Number [facility] [place] [place] [address] * POCT glucose (06/29/2019 7:54 PM CAR BLOCKER) Glucose, POC 144 70 - 199 mg/dL [facility] Blood specimen (specimen) 06/29/2019 7:54 PM CAR BLOCKER 06/29/2019 7:54 PM CAR BLOCKER Dean Ritter MD LAB POCT ORDERABLES - DEV ICE Final Result Performing Organization Address [facility] [place] [place] [address] * Critical Care (06/29/2019 7:35 PM CAR BLOCKER) Narrative Ina Russo MD - 06/29/2019 7:35 PM CAR BLOCKER JOSE CRUZ [place] ? 06/30/2019 ??7:06 AM [...] plan with the ICU team and other medical/instructional consultant staff, making frequent assessments and decisions [...] Result * POCT glucose (06/29/2019 7:13 PM CAR BLOCKER) Glucose, POC 146 70 - 199 mg/dL [facility] Blood specimen (specimen) 06/29/2019 7:13 PM CAR BLOCKER 06/29/2019 7:13 PM CAR BLOCKER us Dean Ritter MD LAB POCT ORDERABLES - DEV ICE Final Result [facility] [place] [address] * XR Chest 1 View (06/29/2019 6:40 PM CAR BLOCKER) Anatomical Region Laterality Modality Body, Chest N/A Computed Radiogr aphy 06/30/2019 8:40 AM CAR BLOCKER Impressions 06/30/2019 8:41 AM CAR BLOCKER Comparison is made chest radiograph dated 06/29/2019 [...] Radha Jay M.D. Narrative 06/30/2019 8:41 AM CAR BLOCKER EXAMINATION: 1 view chest radiograph Procedure Note [...] signed by: Radha Jay M.D. Hilda Lord NP IMG XR PROCEDURES Final Resul t * POCT glucose (06/29/2019 5:45 PM CAR BLOCKER) [facility] Glucose, POC 133 70 - 199 mg/dL [facility] Blood specimen (specimen) 06/29/2019 5:45 PM CAR BLOCKER 06/29/2019 5:45 PM CAR BLOCKER Result [facility] Dean Ritter MD LAB POCT ORDERABLES - DEV ICE Final Result Performing Organization Address [facility] de Phone Number [facility] [place] [address] * POCT glucose (06/29/2019 5:44 PM CAR BLOCKER) Glucose, POC 166 70 - 199 mg/dL [facility] Blood specimen (specimen) 06/29/2019 5:44 PM CAR BLOCKER 06/29/2019 5:44 PM CAR BLOCKER Result [facility] Dean Ritter MD LAB POCT ORDERABLES - DEV ICE Final Result Performing Organization Address [facility] [place] [address] * Gentamicin level, trough (06/29/2019 4:59 PM CAR BLOCKER) Gentamicin trough 1.6 0.1 - 2.0 mcg/mL [facility] Comment: Interpretive Data Therapeutic Range: ??UTI/GPC synergy: ?? 0-2 mcg/mL ??Systemic illness: ??0-2 mcg/mL ??Sepsis: ?0-2 mcg/mL UTI/GPC synergy refers to the synergistic effect of aminoglycosides with other antibiotics in treating urinary tract infections caused by gram positive cocci (e.g. Enterococcus). Current interpretive data was last revised on 05. Blood specimen (specimen) 06/29/2019 4:59 PM CAR BLOCKER 06/29/2019 5:08 PM CAR BLOCKER Result [facility] Luz Driscoll DNP LAB BLOOD ORDERABLES Final R esult Performing Organization Address [facility] de Phone Number [facility] [place] [address] * POCT glucose (06/29/2019 4:58 PM CAR BLOCKER) Glucose, POC 113 70 - 199 mg/dL [facility] Blood specimen (specimen) 06/29/2019 4:58 PM CAR BLOCKER 06/29/2019 4:58 PM CAR BLOCKER Dean Ritter MD LAB POCT ORDERABLES - DEV ICE Final Result Performing Organization Address [facility] Co de Phone Number [facility] [place] [employer] [place] [place] [address] * (ABNORMAL) POCT glucose (06/29/2019 4:57 PM CAR BLOCKER) Glucose, POC 58(L) 70 - 199 mg/dL [facility] Blood specimen (specimen) 06/29/2019 4:57 PM CAR BLOCKER 06/29/2019 4:57 PM CAR BLOCKER Dean Ritter MD LAB POCT ORDERABLES - DEV ICE Final Result Performing Organization Address [facility] [place] [address] * POCT glucose (06/29/2019 4:00 PM CAR BLOCKER) Glucose, POC 112 70 - 199 mg/dL [facility] Blood specimen (specimen) 06/29/2019 4:00 PM CAR BLOCKER 06/29/2019 4:00 PM CAR BLOCKER Dean Ritter MD LAB POCT ORDERABLES - DEV ICE Final Result Performing Organization Address [facility] [place] [address] * POCT glucose (06/29/2019 1:58 PM CAR BLOCKER) Glucose, POC 121 70 - 199 mg/dL [facility] Blood specimen (specimen) 06/29/2019 1:58 PM CAR BLOCKER 06/29/2019 1:58 PM CAR BLOCKER us Dean Ritter MD LAB POCT ORDERABLES - DEV ICE Final Result Performing Organization Address [facility] de Phone Number [facility] [place] [employer] [place] [place] [address] * POCT glucose (06/29/2019 1:15 PM CAR BLOCKER) Glucose, POC 133 70 - 199 mg/dL [facility] Blood specimen (specimen) 06/29/2019 1:15 PM CAR BLOCKER 06/29/2019 1:15 PM CAR BLOCKER us Dean Ritter MD LAB POCT ORDERABLES - DEV ICE Final Result Performing Organization Address [facility] de Phone Number [facility] [place] [address] * POCT glucose (06/29/2019 12:07 PM CAR BLOCKER) Glucose, POC 138 70 - 199 mg/dL [facility] Blood specimen (specimen) 06/29/2019 12:07 PM CAR BLOCKER 06/29/2019 12:07 PM CAR BLOCKER us Dean Ritter MD LAB POCT ORDERABLES - DEV ICE Final Result Performing Organization Address [facility] [place] [address] * POCT glucose (06/29/2019 11:13 AM CAR BLOCKER) Glucose, POC 116 70 - 199 mg/dL [facility] Blood specimen (specimen) 06/29/2019 11:13 AM CAR BLOCKER 06/29/2019 11:13 AM CAR BLOCKER us Dean Ritter MD LAB POCT ORDERABLES - DEV ICE Final Result Performing Organization Address [facility] Co de Phone Number SHAILA MONTOYA Sherif [facility] [place] [employer] [place] [address] * POCT glucose (06/29/2019 10:05 AM CAR BLOCKER) Glucose, POC 113 70 - 199 mg/dL [facility] Blood specimen (specimen) 06/29/2019 10:05 AM CAR BLOCKER 06/29/2019 10:05 AM CAR BLOCKER us Dean Ritter MD LAB POCT ORDERABLES - DEV ICE Final Result Performing Organization Address [facility] de Phone Number [facility] [place] [address] * MA ARTL CATHJ/CANNULJ MNTR/TRANSFUSION SPX PRQ (06/29/2019 9:16 AM CAR BLOCKER) Narrative Ina Russo MD - 06/29/2019 9:16 AM CAR BLOCKER Ina Russo MD ? 06/30/2019 ??5:08 AM Arterial Line Insertion Date/Time: 06/29/2019 9:17 AM Performed by: Denis Copeland MD Authorized by: Denis Copeland MD [place] Protocol: RN Notified of Procedure: yes ?? [...] matched to patient identification: n/a ?? Responsible constitution party for transporting specimen(s) to lab determined: n/a ?? Denis Copeland MD IV THERAPY ORDERABLES Ellyn l Result * POCT glucose (06/29/2019 9:06 AM CAR BLOCKER) Glucose, POC 130 70 - 199 mg/dL [facility] Blood specimen (specimen) 06/29/2019 9:06 AM CAR BLOCKER 06/29/2019 9:06 AM CAR BLOCKER Dean Ritter MD LAB POCT ORDERABLES - DEV ICE Final Result [facility] [place] [address] * POCT glucose (06/29/2019 8:05 AM CAR BLOCKER) Glucose, POC 134 70 - 199 mg/dL [facility] Blood specimen (specimen) 06/29/2019 8:05 AM CAR BLOCKER 06/29/2019 8:05 AM CAR BLOCKER Dean Ritter MD LAB POCT ORDERABLES - DEV ICE Final Result [facility] Department [place] [address] * Critical Care (06/29/2019 7:33 AM CAR BLOCKER) Narrative Glory Arndt MD - 06/29/2019 7:33 AM CAR BLOCKER uLz Driscoll NP ? 06/29/2019 ??4:19 PM Critical [...] plan with the ICU team and other medical/instructional consultant staff, making frequent assessments and decisions [...] Result * POCT glucose (06/29/2019 7:02 AM CAR BLOCKER) [facility] Glucose, POC 169 70 - 199 mg/dL [facility] Blood specimen (specimen) 06/29/2019 7:02 AM CAR BLOCKER 06/29/2019 7:02 AM CAR BLOCKER Dean Ritter MD LAB POCT ORDERABLES - DEV ICE Final Result Performing Organization Address [facility] Co de Phone Number [facility] Department [place] [address] * POCT glucose (06/29/2019 6:15 AM CAR BLOCKER) [facility] Signature Glucose, POC 170 70 - 199 mg/dL [facility] Blood specimen (specimen) 06/29/2019 6:15 AM CAR BLOCKER 06/29/2019 6:15 AM CAR BLOCKER Dean Ritter MD LAB POCT ORDERABLES - DEV ICE Final Result Performing Organization Address [facility] de Phone Number [facility] [place] [address] * (ABNORMAL) Differential, auto (06/29/2019 5:07 AM CAR BLOCKER) [facility] Neutrophil abs 15.2(H) 1.7 - 6.5 K/cumm [facility] Imm gran abs 0.4(H) 0.0 - 0.1 K/cumm [facility] Lymphocyte abs 3.5(H) 0.8 - 3.3 K/cumm [facility] Monocyte abs 1.8(H) 0.2 - 0.8 K/cumm [facility] Eosinophil abs 0.0 0.0 - 0.5 K/cumm [facility] Basophil abs 0.0 0.0 - 0.1 K/cumm [facility] Neutrophil pct 72.7 % [facility] Comment: Interpretive Data Percent cell count reference ranges are not reported, since discordance with absolute values may lead to misinterpretation of CBC data. Current Interpretive Data was last revised on 2017. Imm gran pct 2.1 % [facility] Comment: Interpretive Data Percent cell count reference ranges are not reported, since discordance with absolute values may lead to misinterpretation of CBC data. Current Interpretive Data was last revised on 2017. Lymphocyte pct 16.5 % [facility] Comment: Interpretive Data Percent cell count reference ranges are not reported, since discordance with absolute values may lead to misinterpretation of CBC data. Current Interpretive Data was last revised on 2017. Monocyte pct 8.4 % [facility] Comment: Interpretive Data Percent cell count reference ranges are not reported, since discordance with absolute values may lead to misinterpretation of CBC data. Current Interpretive Data was last revised on 2017. Eosinophil pct 0.1 % [facility] Comment: Interpretive Data Percent cell count reference ranges are not reported, since discordance with absolute values may lead to misinterpretation of CBC data. Current Interpretive Data was last revised on 2017. Basophil pct 0.2 % [facility] Comment: Interpretive Data Percent cell count reference ranges are not reported, since discordance with absolute values may lead to misinterpretation of CBC data. Current Interpretive Data was last revised on 2017. Blood specimen (specimen) 06/29/2019 5:07 AM CAR BLOCKER 06/29/2019 5:27 AM CAR BLOCKER Brittany Serrano [employer]ER LAB BLOOD ORDERABLES Final Res ult Performing Organization Address [facility] Co de Phone Number [facility] Department [place] [address] * (ABNORMAL) Lactate, whole blood (06/29/2019 5:07 AM CAR BLOCKER) Lactate, bld 3.9(H) 0.7 - 2.0 mmol/L [facility] Blood specimen (specimen) 06/29/2019 5:07 AM CAR BLOCKER 06/29/2019 5:25 AM CAR BLOCKER Brittany Serrano [employer] LAB BLOOD ORDERABLES Final Res ult Performing Organization Address City/[facility]/ZIP Co de Phone Number [facility] Department [place] [address] * (ABNORMAL) CBC with auto differential (06/29/2019 5:07 AM CAR BLOCKER) [facility] WBC 21.0(H) 3.8 - 9.9 K/cumm [facility] Hgb 7.8(L) 11.9 - 15.5 g/dL [facility] Hct 24.5(L) 35.6 - 45.5 % [facility] Plt 249 150 - 400 K/cumm [facility] MPV 11.4 9.1 - 12.3 fL [facility] RBC 2.88(L) 3.90 - 5.20 M/cumm [facility] MCV 85.1 81.3 - 96.4 fL [facility] MCH 27.1 27.1 - 33.3 pg [facility] MCHC 31.8(L) 32.3 - 35.7 g/dL [facility] RDW CV 20.4(H) 11.1 - 14.9 % [facility] RDW SD 61.4(H) 35.7 - 48.1 fL [facility] NRBC abs 0.05(H) 0.00 - 0.01 K/cumm [facility] Blood specimen (specimen) 06/29/2019 5:07 AM CAR BLOCKER 06/29/2019 5:27 AM CAR BLOCKER us Brittany Serrano [employer]ER LAB BLOOD ORDERABLES Final Res ult Performing Organization Address City/State/[facility] Co de Phone Number [facility] Department [place] [address] * POCT glucose (06/29/2019 5:04 AM CAR BLOCKER) [facility] Glucose, POC 166 70 - 199 mg/dL [facility] Blood specimen (specimen) 06/29/2019 5:04 AM CAR BLOCKER 06/29/2019 5:04 AM CAR BLOCKER us Dean Ritter MD LAB POCT ORDERABLES - DEV ICE Final Result Performing Organization Address City/[facility] Co de Phone Number [facility] [place] [employer] [place] [place] [address] * POCT glucose (06/29/2019 3:57 AM CAR BLOCKER) Glucose, POC 187 70 - 199 mg/dL [facility] Blood specimen (specimen) 06/29/2019 3:57 AM CAR BLOCKER 06/29/2019 3:57 AM CAR BLOCKER Dean Ritter MD LAB POCT ORDERABLES - DEV ICE Final Result Performing Organization Address [facility] [place] [address] * POCT glucose (06/29/2019 3:01 AM CAR BLOCKER) Glucose, POC 192 70 - 199 mg/dL [facility] Blood specimen (specimen) 06/29/2019 3:01 AM CAR BLOCKER 06/29/2019 3:01 AM CAR BLOCKER Dean Ritter MD LAB POCT ORDERABLES - DEV ICE Final Result Performing Organization Address [facility] Co de Phone Number [facility] [place] [place] [address] * POCT glucose (06/29/2019 1:54 AM CAR BLOCKER) Glucose, POC 194 70 - 199 mg/dL [facility] Blood specimen (specimen) 06/29/2019 1:54 AM CAR BLOCKER 06/29/2019 1:54 AM CAR BLOCKER us Dean Ritter MD LAB POCT ORDERABLES - DEV ICE Final Result Performing Organization Address City/[facility] Co de Phone Number [facility] [place] [address] * (ABNORMAL) POCT glucose (06/29/2019 1:16 AM CAR BLOCKER) Glucose, POC 205(H) 70 - 199 mg/dL [facility] Blood specimen (specimen) 06/29/2019 1:16 AM CAR BLOCKER 06/29/2019 1:16 AM CAR BLOCKER us Dean Ritter MD LAB POCT ORDERABLES - DEV ICE Final Result [facility] [place] [address] * XR Chest 1 View (06/29/2019 12:33 AM CAR BLOCKER) Anatomical Region Laterality Modality Body, Chest N/A Computed Radiogr aphy 06/29/2019 10:4 1 AM CAR BLOCKER Impressions 06/29/2019 11:10 AM CAR BLOCKER Comparison is made to 06/28/2018 6:43 PM. [...] Jason Tellez M.D. Narrative 06/29/2019 11:10 AM CAR BLOCKER EXAMINATION: 1 view chest radiograph Procedure Note [...] it. Electronically signed by: Jason Tellez M.D. Brittany Serrano [employer]ER IMG XR PROCEDURES Final Result * POCT glucose (06/29/2019 12:02 AM CAR BLOCKER) Glucose, POC 195 70 - 199 mg/dL [facility] Blood specimen (specimen) 06/29/2019 12:02 AM CAR BLOCKER 06/29/2019 12:02 AM CAR BLOCKER Dean Ritter MD LAB POCT ORDERABLES - DEV ICE Final Result Performing Organization Address [facility] de Phone Number [facility] Department [place] [address] * (ABNORMAL) Valproic acid level, total (06/29/2019 12:00 AM CAR BLOCKER) Pathologist [facility] Valproic Acid <15.0(L) 50.0 - 100.0 mcg/mL [facility] Comment: Interpretive Data Therapeutic or toxic effects of anticonvulsant drugs may occur at different concentrations in different patients and the correlation between dose and clinical effect must be evaluated individually. Current interpretative data was last revised on 13. Blood specimen (specimen) 06/29/2019 06/29/2019 12:26 AM CAR BLOCKER Dean Ritter MD LAB BLOOD ORDERABLES Ellyn l Result Performing Organization Address [facility] Co de Phone Number [facility] Department [place] [address] * (ABNORMAL) Differential, auto (06/29/2019 12:00 AM CAR BLOCKER) Neutrophil abs 16.5(H) 1.7 - 6.5 K/cumm [facility] Imm gran abs 0.6(H) 0.0 - 0.1 K/cumm [facility] Lymphocyte abs 2.7 0.8 - 3.3 K/cumm [facility] Monocyte abs 1.4(H) 0.2 - 0.8 K/cumm [facility] Eosinophil abs 0.1 0.0 - 0.5 K/cumm [facility] Basophil abs 0.1 0.0 - 0.1 K/cumm [facility] Neutrophil pct 77.7 % [facility] Comment: Interpretive Data Percent cell count reference ranges are not reported, since discordance with absolute values may lead to misinterpretation of CBC data. Current Interpretive Data was last revised on 2017. Imm gran pct 2.6 % [facility] Comment: Interpretive Data Percent cell count reference ranges are not reported, since discordance with absolute values may lead to misinterpretation of CBC data. Current Interpretive Data was last revised on 2017. Lymphocyte pct 12.7 % [facility] Comment: Interpretive Data Percent cell count reference ranges are not reported, since discordance with absolute values may lead to misinterpretation of CBC data. Current Interpretive Data was last revised on 2017. Monocyte pct 6.4 % [facility] Comment: Interpretive Data Percent cell count reference ranges are not reported, since discordance with absolute values may lead to misinterpretation of CBC data. Current Interpretive Data was last revised on 2017. Eosinophil pct 0.3 % [facility] Comment: Interpretive Data Percent cell count reference ranges are not reported, since discordance with absolute values may lead to misinterpretation of CBC data. Current Interpretive Data was last revised on 2017. Basophil pct 0.3 % [facility] Comment: Interpretive Data Percent cell count reference ranges are not reported, since discordance with absolute values may lead to misinterpretation of CBC data. Current Interpretive Data was last revised on 2017. Blood specimen (specimen) 06/29/2019 06/29/2019 12:29 AM CAR BLOCKER us Brittany Serrano NP LAB BLOOD ORDERABLES Final Res ult [facility] [place] [address] * Infection Prevention MRSA Only (Staphylococcus aureus) Culture Nasal (06/29/2019 12:00 AM CAR BLOCKER) Report Final Report: Negative [facility] Nasal 06/29/2019 06/29/2019 2:0 3 AM CAR BLOCKER Narrative [facility] - 06/30/2019 8:01 AM CAR BLOCKER Testing performed by [facility] ([phone]). Brittany Serrano NP LAB MICROBIOLOGY - GENERAL ORD ERABLES Final Result Performing Organization Address City/[facility]/ZIP Co de Phone Number [facility] Department [place] [address] * (ABNORMAL) Lactate, whole blood (06/29/2019 12:00 AM CAR BLOCKER) Pathologist [facility] Lactate, bld 3.1(H) 0.7 - 2.0 mmol/L [facility] Blood specimen (specimen) 06/29/2019 06/29/2019 12:29 AM CAR BLOCKER Brittany Serrano NP LAB BLOOD ORDERABLES Final Res ult Performing Organization Address [facility] Co de Phone Number [facility] Department [place] [address] * (ABNORMAL) Blood gas, arterial (06/29/2019 12:00 AM CAR BLOCKER) pH, Art 7.46(H) 7.35 - 7.45 [facility] PCO2, Arterial 36 35 - 45 mmHg [facility] PO2, Arterial 71(L) 83 - 108 mmHg [facility] HCO3 Art (Calculated) 27 20 - 30 mmol/L [facility] BE, art 3 mmol/L [facility] Comment: Interpretive Data No Reference Range Established Current Interpretive Data was last revised on 2017 O2 Sat Art (Measured) 95 90 - 95 % [facility] Blood specimen (specimen) 06/29/2019 06/29/2019 12:29 AM CAR BLOCKER Brittany Serrano [employer] LAB BLOOD ORDERABLES Final Res ult Performing Organization Address [facility] de Phone Number [facility] [place] [address] * Calcium, ionized (06/29/2019 12:00 AM CAR BLOCKER) Calcium, Ionized 4.75 4.50 - 5.10 mg/dL [facility] Blood specimen (specimen) 06/29/2019 06/29/2019 12:26 AM CAR BLOCKER Brittany Serrano [employer] INST[employer]ER LAB BLOOD ORDERABLES Final Res ult Performing Organization Address [facility] de Phone Number [facility] [place] [address] * Potassium, whole blood (06/29/2019 12:00 AM CAR BLOCKER) Pathologist [facility] Potassium, bld 4.6 3.3 - 4.9 mmol/L [facility] Blood specimen (specimen) 06/29/2019 06/29/2019 12:29 AM CAR BLOCKER Brittany Serrano [employer] INST[employer]ER LAB BLOOD ORDERABLES Final Res ult Performing Organization Address [facility] de Phone Number [facility] [place] [address] * (ABNORMAL) Basic metabolic panel (06/29/2019 12:00 AM CAR BLOCKER) Sodium 137 135 - 145 mmol/L [facility] Potassium, pl 5.1(H) 3.3 - 4.9 mmol/L [facility] Comment:Hemolyzed; (++); pot assium value may be falsely elevated by as much as 0.3 - 0.5 mmol/L. Suggest redraw and reanalysis. Chloride 102 97 - 110 mmol/L [facility] CO2 26 22 - 32 mmol/L [facility] Anion gap 9 2 - 15 mmol/L [facility] BUN 38(H) 8 - 25 mg/dL [facility] Creatinine 1.41(H) 0.60 - 1.10 mg/dL [facility] Glucose 198 70 - 199 mg/dL [facility] Comment: Interpretive Data Fasting glucose >/= 126 [...] 2017. Calcium 9.7 8.5 - 10.3 mg/dL [facility] Blood specimen (specimen) 06/29/2019 06/29/2019 12:26 AM CAR BLOCKER Brittany Serrano [employer]ST[employer]ER LAB BLOOD ORDERABLES Final Res ult Performing Organization Address City/[facility]/ZIP Co de Phone Number [facility] [place] [place] [address] * Phosphorus (06/29/2019 12:00 AM CAR BLOCKER) Phosphorus, pl 2.8 2.3 - 4.5 mg/dL [facility] Blood specimen (specimen) 06/29/2019 06/29/2019 12:26 AM CAR BLOCKER Brittany [place] [employer] INSTALLER LAB BLOOD ORDERABLES Final Res ult Performing Organization Address City/[facility] Co de Phone Number [facility] [place] [address] * Magnesium (06/29/2019 12:00 AM CAR BLOCKER) Magnesium 1.5 1.4 - 2.5 mg/dL [facility] Blood specimen (specimen) 06/29/2019 06/29/2019 12:26 AM CAR BLOCKER Brittany Serrano [employer] INST[employer]ER LAB BLOOD ORDERABLES Final Res ult Performing Organization Address [facility] Co de Phone Number [facility] Department [place] [address] * (ABNORMAL) CBC with auto differential (06/29/2019 12:00 AM CAR BLOCKER) Pathologist [facility] WBC 21.3(H) 3.8 - 9.9 K/cumm [facility] Hgb 8.5(L) 11.9 - 15.5 g/dL [facility] Hct 26.0(L) 35.6 - 45.5 % [facility] Plt 225 150 - 400 K/cumm [facility] MPV 11.1 9.1 - 12.3 fL [facility] RBC 3.02(L) 3.90 - 5.20 M/cumm [facility] MCV 86.1 81.3 - 96.4 fL [facility] MCH 28.1 27.1 - 33.3 pg [facility] MCHC 32.7 32.3 - 35.7 g/dL [facility] RDW CV 20.8(H) 11.1 - 14.9 % [facility] RDW SD 63.0(H) 35.7 - 48.1 fL [facility] NRBC abs 0.02(H) 0.00 - 0.01 K/cumm [facility] Blood specimen (specimen) 06/29/2019 06/29/2019 12:29 AM CAR BLOCKER Brittany Serrano [employer] INST[employer]ER LAB BLOOD ORDERABLES Final Res ult Performing Organization Address [facility]/ZIP Co de Phone Number [facility] [place] [address] * Beta-hydroxybutyrate (06/29/2019 12:00 AM CAR BLOCKER) Pathologist [facility] Beta-Hydroxybut yrate 0.1 0.0 - 0.5 mmol/L [facility] Blood specimen (specimen) 06/29/2019 06/29/2019 12:26 AM CAR BLOCKER Narrative SHAILA MONTOYA - 06/29/2019 12:39 AM CAR BLOCKER Once PRN blood glucose greater than 299 mg/dL. us Cas Reid MD LAB BLOOD ORDERABLES Final Res ult Performing Organization Address City/State/[facility] Co de Phone Number [facility] [place] [address] * Critical Care (06/28/2019 11:57 PM CAR BLOCKER) Narrative Ina Russo MD - 06/28/2019 11:57 PM CAR BLOCKER Brittany Serrano NP ? 06/29/2019 ??4:30 AM [...] plan with the ICU team and other medical/instructional consultant staff, making frequent assessments and decisions [...] documenting in the medical record us Brittany [place] [employer] INST[employer]ER IN CLINIC/BEDSIDE ORDERABLES F inal Result * (ABNORMAL) POCT glucose (06/28/2019 11:33 PM CAR BLOCKER) Glucose, POC 228(H) 70 - 199 mg/dL [facility] Glucose comment 1 RN Notified [facility] Blood specimen (specimen) 06/28/2019 11:33 PM CAR BLOCKER 06/28/2019 11:33 PM CAR BLOCKER Lo Laura DO LAB POCT ORDERABLES - DE VICE Final Result Performing Organization Address [facility]/ZIP Co de Phone Number [facility] [place] [address] * [place] Fluoroscopy < 1 Hour (06/28/2019 10:47 PM CAR BLOCKER) Narrative RAD_P[facility] - 06/28/2019 10:47 PM CAR BLOCKER The images from this study are not interpreted by Radiology. ??Please refer to the physician's procedure / OR operative note. Lo Laura DO IMG FLUOROSCOPY PROCEDUR ES Final Result Performing Organization Address [facility] Co de Phone Number RAD_[facility] * Check Sample (06/28/2019 10:33 PM CAR BLOCKER) Pathologist [facility] ABO Rh A Positive [facility] HCLL OTHER 06/28/2019 10:3 3 PM CAR BLOCKER 06/28/2019 11:34 PM CAR BLOCKER Lo Laura DO LAB BLOOD ORDERABLES Fin al Result Performing Organization Address City/[facility]/ZIP Co de Phone Number [facility] [place] [employer] [place] [address] * (ABNORMAL) POC Blood Gas and Chemistries, Venous - (06/28/2019 10:25 PM CAR BLOCKER) Pathologist [facility] pH, Rj POC 7.35 7.32 - 7.43 [facility] pCO2, rj POC 52(H) 40 - 50 mmHg [facility] pO2, rj POC 29 mmHg [facility] Na, POC 138 135 - 145 mmol/L [facility] K POC 4.9 3.3 - 4.9 mmol/L [facility] Cl, POC 102 97 - 110 mmol/L [facility] Ionized Ca, POC 5.38(H) 4.50 - 5.10 mg/dL [facility] Glucose, POC 236(H) 70 - 199 mg/dL [facility] Lactate, POC 3.3(H) 0.7 - 2.2 mmol/L [facility] O2 Sat, Rj POC (Gorge) 52 % [facility] Base excess, POC 2.1 mmol/L [facility] HCO3, Rj POC 29 20 - 30 mmol/L [facility] Hct, POC 24.0(L) 36.3 - 45.3 % [facility] Total Hb, POC 7.9(L) 11.9 - 15.5 g/dL [facility] O2 Sat, Rj POC (Calc) 51 % [facility] Blood specimen (specimen) 06/28/2019 10:25 PM CAR BLOCKER 06/28/2019 10:25 PM CAR BLOCKER us Lo Laura DO LAB POCT ORDERABLES - DE VICE Final Result [facility] [place] [address] * Type and screen (06/28/2019 10:02 PM CAR BLOCKER) ABO Rh A Positive [facility] Triston, indirect Negative [facility] Blood specimen (specimen) 06/28/2019 10:02 PM CAR BLOCKER 06/28/2019 10:24 PM CAR BLOCKER Narrative [facility] - 06/28/2019 11:54 PM CAR BLOCKER Has the patient had Daratumumab (Darzalex) in the past 6 months?->Unknown us Cas Reid MD LAB BLOOD BANK TEST ORDERABLES Final Result [facility] [place] [address] * (ABNORMAL) POCT glucose (06/28/2019 9:39 PM CAR BLOCKER) [facility] Glucose, POC 274(H) 70 - 199 mg/dL [facility] Blood specimen (specimen) 06/28/2019 9:39 PM CAR BLOCKER 06/28/2019 9:39 PM CAR BLOCKER Dean Ritter MD LAB POCT ORDERABLES - DEV ICE Final Result Performing Organization Address City/[facility]/[place] [address] * Prepare RBC: 2 Units (06/28/2019 9:18 PM CAR BLOCKER) [facility] Product code [id number] [facility] Unit Number [id number] 3-C [facility] Product Blood Type OPOS [facility] Dispense Status RETURNED [facility] Product code [id number] [facility] Unit Number [id number] 5-C [facility] Product Blood Type OPOS [facility] Dispense Status RETURNED [facility] Blood specimen (specimen) 06/28/2019 9:18 PM CAR BLOCKER 06/28/2019 9:19 PM CAR BLOCKER Narrative [facility] - 06/29/2019 2:44 AM CAR BLOCKER Specify Procedure:->open tibia fracture Are special requirements needed? (all products are leukoreduced)->No Date required:-[id number] LRRBC # of [id number] Reasons:-Hold for procedure (specify procedure)} us Cas Reid MD BLOOD BANK PRODUCT ORDERABLES Final Result Performing Organization Address City/[facility] Co de Phone Number [facility] [place] [address] * Prepare RBC (06/28/2019 8:51 PM CAR BLOCKER) Product code [id number] [facility] Unit Number [id number] [facility] Product Blood Type ONEG [facility] Dispense Status RETURNED [facility] Product code [id number] [facility] Unit Number [id number] [facility] Product Blood Type OPOS [facility] Dispense Status RETURNED [facility] Product code [id number] [facility] Unit Number [id number] [facility] Product Blood Type ONEG [facility] Dispense Status RETURNED [facility] Product code [id number] [facility] Unit Number [id number] [facility] Product Blood Type OPOS [facility] Dispense Status RETURNED [facility] Product code [id number] [facility] Unit Number [id number] [facility] Product Blood Type OPOS [facility] Dispense Status PRESUMED TRANSFUSED [facility] Product code [id number] [facility] Unit Number [id number] G [facility] Product Blood Type OPOS [facility] Dispense Status PRESUMED TRANSFUSED [facility] Product code [id number] [facility] Unit Number [id number] [facility] Product Blood Type APOS [facility] Dispense Status RETURNED [facility] Blood specimen (specimen) 06/28/2019 8:51 PM CAR BLOCKER 06/28/2019 8:51 PM CAR BLOCKER Forrest Begum MD BLOOD BANK PRODUCT ORDERABLES Final Result [facility] Department [place] [address] * (ABNORMAL) Differential, auto (06/28/2019 8:42 PM CAR BLOCKER) Neutrophil abs 15.4(H) 1.7 - 6.5 K/cumm [facility] Imm gran abs 0.6(H) 0.0 - 0.1 K/cumm [facility] Lymphocyte abs 2.8 0.8 - 3.3 K/cumm [facility] Monocyte abs 1.2(H) 0.2 - 0.8 K/cumm [facility] Eosinophil abs 0.2 0.0 - 0.5 K/cumm [facility] Basophil abs 0.1 0.0 - 0.1 K/cumm [facility] Neutrophil pct 76.0 % [facility] Comment: Interpretive Data Percent cell count reference ranges are not reported, since discordance with absolute values may lead to misinterpretation of CBC data. Current Interpretive Data was last revised on 2017. Imm gran pct 3.1 % [facility] Comment: Interpretive Data Percent cell count reference ranges are not reported, since discordance with absolute values may lead to misinterpretation of CBC data. Current Interpretive Data was last revised on 2017. Lymphocyte pct 13.9 % [facility] Comment: Interpretive Data Percent cell count reference ranges are not reported, since discordance with absolute values may lead to misinterpretation of CBC data. Current Interpretive Data was last revised on 2017. Monocyte pct 5.8 % [facility] Comment: Interpretive Data Percent cell count reference ranges are not reported, since discordance with absolute values may lead to misinterpretation of CBC data. Current Interpretive Data was last revised on 2017. Eosinophil pct 0.9 % [facility] Comment: Interpretive Data Percent cell count reference ranges are not reported, since discordance with absolute values may lead to misinterpretation of CBC data. Current Interpretive Data was last revised on 2017. Basophil pct 0.3 % [facility] Comment: Interpretive Data Percent cell count reference ranges are not reported, since discordance with absolute values may lead to misinterpretation of CBC data. Current Interpretive Data was last revised on 2017. Blood specimen (specimen) 06/28/2019 8:42 PM CAR BLOCKER 06/28/2019 9:04 PM CAR BLOCKER us Mago Brian MD LAB BLOOD ORDERABLES Final Result [facility] Department [place] [address] * (ABNORMAL) CBC with auto differential (06/28/2019 8:42 PM CAR BLOCKER) WBC 20.3(H) 3.8 - 9.9 K/cumm [facility] Hgb 8.5(L) 11.9 - 15.5 g/dL [facility] Hct 26.4(L) 35.6 - 45.5 % [facility] Plt 188 150 - 400 K/cumm [facility] MPV 11.3 9.1 - 12.3 fL [facility] RBC 3.07(L) 3.90 - 5.20 M/cumm [facility] MCV 86.0 81.3 - 96.4 fL [facility] Comment:MCV delta due to alfredo gical procedure. MCH 27.7 27.1 - 33.3 pg [facility] MCHC 32.2(L) 32.3 - 35.7 g/dL [facility] RDW CV 20.5(H) 11.1 - 14.9 % [facility] RDW SD 63.5(H) 35.7 - 48.1 fL [facility] NRBC abs 0.02(H) 0.00 - 0.01 K/cumm [facility] Blood specimen (specimen) 06/28/2019 8:42 PM CAR BLOCKER 06/28/2019 9:04 PM CAR BLOCKER Narrative [facility] - 06/28/2019 9:53 PM CAR BLOCKER THE COLLECTION LOCATION IS [address] us Mago Brian MD LAB BLOOD ORDERABLES Final Result [facility] Department [place] [address] * (ABNORMAL) POCT glucose (06/28/2019 8:26 PM CAR BLOCKER) Glucose, POC 267(H) 70 - 199 mg/dL [facility] Blood specimen (specimen) 06/28/2019 8:26 PM CAR BLOCKER 06/28/2019 8:26 PM CAR BLOCKER us Forrest Begum MD LAB POCT ORDERABLES - DEVICE Final Result [facility] [place] [address] * MA CRITICAL CARE ILL/INJURED PATIENT INIT 30-74 MIN, MA CRITICAL CARE ILL/INJURED PATIENT ADDL 30 MIN (06/28/2019 7:50 PM CAR BLOCKER) Forrest Stewart MD - 06/28/2019 7:50 PM CAR BLOCKER Forrest Begum MD ? 06/28/2019 ??7:51 PM [...] Result * POCT glucose (06/28/2019 7:31 PM CAR BLOCKER) Glucose, POC 176 70 - 199 mg/dL [facility]TO[facility] Blood specimen (specimen) 06/28/2019 7:31 PM CAR BLOCKER 06/28/2019 7:31 PM CAR BLOCKER Forrest Begum MD LAB POCT ORDERABLES - DEVICE Final Result SHAILA QUINTERO [facility] Department [place] [address] * POCT hCG, urine (06/28/2019 7:23 PM CAR BLOCKER) HCG, ur, POC Negative Lot Number [id number] QC Backgroud Clear Acceptable QC Control Line Acceptable Urine 06/28/2019 7:23 PM CAR BLOCKER Forrest Begum MD POINT OF CARE TEST ORDERABLES Final Result * XR Tibia Fibula Left 2 Views (06/28/2019 7:20 PM CAR BLOCKER) Anatomical Region Laterality Modality Lower Extremities, Lower Leg Left Com puted Radiography 06/28/2019 7:48 PM CAR BLOCKER Impressions 06/29/2019 2:54 PM CAR BLOCKER 1. ??Open comminuted periprosthetic fracture of the [...] Gilberto Fuentes M.D. Narrative 06/29/2019 2:54 PM CAR BLOCKER EXAMINATION: XR ANKLE RIGHT 3 OR MORE [...] 1 or 2 Views (06/28/2019 7:19 PM CAR BLOCKER) Anatomical Region Laterality Modality Body, Pelvis N/A Computed Radiogr aphy 06/28/2019 7:48 PM CAR BLOCKER Impressions 06/29/2019 2:54 PM CAR BLOCKER 1. ??Open comminuted periprosthetic fracture of the [...] Gilberto Fuentes M.D. Narrative 06/29/2019 2:54 PM CAR BLOCKER EXAMINATION: XR ANKLE RIGHT 3 OR MORE [...] Fibula Right 2 Views (06/28/2019 7:19 PM CAR BLOCKER) Anatomical Region Laterality Modality Lower Extremities, Lower Leg Right Com puted Radiography 06/28/2019 7:48 PM CAR BLOCKER Impressions 06/29/2019 2:54 PM CAR BLOCKER 1. ??Open comminuted periprosthetic fracture of the [...] Gilberto Fuentes M.D. Narrative 06/29/2019 2:54 PM CAR BLOCKER EXAMINATION: XR ANKLE RIGHT 3 OR MORE [...] 3 or More Views (06/28/2019 7:19 PM CAR BLOCKER) Anatomical Region Laterality Modality Lower Extremities, Ankle Left Compute d Radiography 06/28/2019 7:48 PM CAR BLOCKER Impressions 06/29/2019 2:54 PM CAR BLOCKER 1. ??Open comminuted periprosthetic fracture of the [...] Gilberto Fuentes M.D. Narrative 06/29/2019 2:54 PM CAR BLOCKER EXAMINATION: XR ANKLE RIGHT 3 OR MORE [...] Chest 1 Vw Portable (06/28/2019 7:19 PM CAR BLOCKER) Anatomical Region Laterality Modality Body, Chest N/A Computed Radiogr aphy 06/28/2019 7:57 PM CAR BLOCKER Impressions 06/29/2019 2:53 PM CAR BLOCKER 1st is made to same day chest [...] Gilberto Fuentes M.D. Narrative 06/29/2019 2:53 PM CAR BLOCKER EXAMINATION: 1 view chest radiograph Procedure Note [...] 2 or More Views (06/28/2019 7:19 PM CAR BLOCKER) Anatomical Region Laterality Modality Lower Extremities, Thigh, Femur Left Computed Radiography 06/28/2019 7:48 PM CAR BLOCKER Impressions 06/29/2019 2:54 PM CAR BLOCKER 1. ??Open comminuted periprosthetic fracture of the [...] Gilberto Fuentes M.D. Narrative 06/29/2019 2:54 PM CAR BLOCKER EXAMINATION: XR ANKLE RIGHT 3 OR MORE [...] 1 or 2 Views (06/28/2019 7:19 PM CAR BLOCKER) Anatomical Region Laterality Modality Lower Extremities, Knee Left Computed Radiography 06/28/2019 7:48 PM CAR BLOCKER Impressions 06/29/2019 2:54 PM CAR BLOCKER 1. ??Open comminuted periprosthetic fracture of the [...] Gilberto Fuentes M.D. Narrative 06/29/2019 2:54 PM CAR BLOCKER EXAMINATION: XR ANKLE RIGHT 3 OR MORE [...] 3 or More Views (06/28/2019 7:18 PM CAR BLOCKER) Anatomical Region Laterality Modality Lower Extremities, Ankle Right Compute d Radiography 06/28/2019 7:48 PM CAR BLOCKER Impressions 06/29/2019 2:54 PM CAR BLOCKER 1. ??Open comminuted periprosthetic fracture of the [...] Gilberto Fuentes M.D. Narrative 06/29/2019 2:54 PM CAR BLOCKER EXAMINATION: XR ANKLE RIGHT 3 OR MORE [...] * Opiates Confirmation, Urine (06/28/2019 6:54 PM CAR BLOCKER) Codeine Conf, Ur Does Not Confirm CutOff 50 ng/mL [facility] 6- Acetylmorphine Conf, Ur Does Not Confirm CutOff 10 ng/mL [facility] Oxycodone Conf, Ur Does Not Confirm CutOff 50 ng/mL [facility] Hydrocodone Conf, Ur Confirmed Positive CutOff 50 ng/mL [facility] Morphine Conf, Ur Confirmed Positive CutOff 50 ng/mL [facility] Hydromorphone Conf, Ur Does Not Confirm CutOff 50 ng/mL [facility] Oxymorphone Conf, Ur Does Not Confirm CutOff 50 ng/mL [facility] Urine 06/28/2019 6:54 PM CAR BLOCKER 06/28/2019 7:06 PM CAR BLOCKER us Forrest Begum MD LAB URINE ORDERABLES Final Re sult Performing Organization Address [facility] [place] [place] [address] * Fentanyl Confirmation, Urine (06/28/2019 6:54 PM CAR BLOCKER) Fentanyl Conf, Ur Confirmed Positive Cutoff 1 ng/mL [facility] Acetylfentanyl Conf, Ur Does Not Confirm CutOff 2 ng/mL [facility] Acrylfentanyl Conf, Ur Does Not Confirm CutOff 2 ng/mL [facility] Furanylfentanyl Conf, Ur Does Not Confirm CutOff 2 ng/mL [facility] Fentanyl Metabolite (Norfentanyl) Conf, Ur Does Not Confirm CutOff 10 ng/mL [facility] Urine 06/28/2019 6:54 PM CAR BLOCKER 06/28/2019 7:06 PM CAR BLOCKER us Forrest Begum MD LAB URINE ORDERABLES Final Re sult Performing Organization Address [facility] [place] [address] * (ABNORMAL) Urinalysis, microscopic only (06/28/2019 6:54 PM CAR BLOCKER) WBC, ur 6-10(A) 0 - 5 /HPF [facility] RBC, ur 0-2 0 - 2 /HPF [facility] Hyaline casts, ur 11-20(A) 0 - 10 /LPF [facility] Culture Reflex Comment Reflex conditions for urine culture (WBC >10) not met. [facility] Urine, indwelling catheter 06/28/2019 6:54 PM CAR BLOCKER 06/28/2019 7:03 PM CAR BLOCKER us Holly Monzon MD LAB URINE ORDERABLES Final R esult Performing Organization Address [facility] Co de Phone Number [facility] [place] [address] * (ABNORMAL) Potassium, whole blood (06/28/2019 6:54 PM CAR BLOCKER) Pathologist [facility] Potassium, bld 5.6(H) 3.3 - 4.9 mmol/L [facility] Blood specimen (specimen) 06/28/2019 6:54 PM CAR BLOCKER 06/28/2019 7:03 PM CAR BLOCKER Narrative [facility] - 06/28/2019 7:13 PM CAR BLOCKER THE COLLECTION LOCATION IS [address] us Holly Monzon MD LAB BLOOD ORDERABLES Final R esult Performing Organization Address City/[facility]/[place] [address] * (ABNORMAL) Blood gas, arterial (06/28/2019 6:54 PM CAR BLOCKER) [facility] pH, Art 7.45 7.35 - 7.45 [facility] PCO2, Arterial 39 35 - 45 mmHg [facility] PO2, Arterial 192(H) 83 - 108 mmHg [facility] HCO3 Art (Calculated) 28 20 - 30 mmol/L [facility] BE, art 3 mmol/L [facility] Comment: Interpretive Data No Reference Range Established Current Interpretive Data was last revised on 2017 O2 Sat Art (Measured) 99(H) 90 - 95 % [facility] Blood specimen (specimen) (Blood, Arterial) 06/28/2019 6:54 PM CAR BLOCKER 06/28/2019 7:00 PM CAR BLOCKER Narrative [facility] - 06/28/2019 7:12 PM CAR BLOCKER THE COLLECTION LOCATION IS [address] us Holly Monzon MD LAB BLOOD ORDERABLES Final R esult Performing Organization Address City/[facility]/[place] [address] * (ABNORMAL) Drugs of Abuse Screen, Urine with Reflex Confirmation (06/28/2019 6:54 PM CAR BLOCKER) [facility] Amphetamine, ur Not Detected CutOff 500ng/mL [facility] Comment: Interpretive Data - Amphetamines: ??Samples containing greater than 500 ng/mL d-methamphetamine ??or other cross-reacting amphetamine compounds are reported as positive. ??Amphetamine immunoassays are subject to significant false positive rates due to cross-reactivity of non-amphetamine drugs. Current Interpretive Data was last reviewed 2018. Barbiturates, ur Detected(A) CutOff 200ng/mL [facility] Comment: Interpretive Data - Barbiturates: ??Samples containing greater than 200 ng/mL secobarbital or other cross-reacting barbiturate compounds are reported as positive. ??False positive and false negative results are possible. Current Interpretive Data was last reviewed 2018. Benzodiazepines, ur Not Detected CutOff 100ng/mL [facility] Comment: Interpretive Data - Benzodiazepines: ??Samples containing greater than 100 ng/mL nordiazepam or other cross-reacting compounds are reported as positive. ?? False positive and false negative results are possible. ?? Current Interpretive Data was last reviewed 2018. Cannabinoids, ur Not Detected CutOff 50 ng/mL [facility] Comment: Interpretive Data - Cannabinoids: ??Samples containing greater than 50 ng/mL delta-9 THC -COOH or other cross-reacting compounds are reported as positive. ??False positive and false negative results are possible. ?? Current Interpretive Data was last reviewed 2018. Cocaine, ur Not Detected CutOff 150ng/mL [facility] Comment: Interpretive Data - Cocaine: ??Samples containing greater than 150 ng/mL benzoylecgonine or other cross-reacting compounds are reported as positive. False positive and false negative results are possible. Current Interpretive Data was last reviewed 2018. Fentanyl, Ur Detected(A) Cutoff 1 ng/mL [facility] Comment: Interpretive Data - Fentanyls: ??Samples containing greater than 1 ng/mL fentanyl or other cross-reacting fentanyl compounds are reported as detected. ??False positive and false negative results are possible. Current Interpretive Data was last reviewed 2019. Methadone, ur Not Detected CutOff 300ng/mL [facility] Comment: Interpretive Data - Methadone: ??Samples containing greater than 300 ng/mL d,l-methadone or other cross-reacting compounds are reported as positive. ??False positive and false negative results are possible. Current Interpretive Data was last reviewed 2018. Opiates, ur Detected(A) CutOff 300ng/mL [facility] Comment: Interpretive Data - Opiates: ??Samples containing greater than 300 ng/mL morphine or other cross-reacting compounds are reported as positive. ??False positive and false negative results are possible. Current Interpretive Data was last reviewed 2018. Oxycodone, ur Not Detected CutOff 100ng/mL [facility] Comment: Interpretive Data - Oxycodone: ??Samples containing greater than 100 ng/mL oxycodone or other cross-reacting compounds are reported as positive. ??False positive and false negative results are possible. ?? Current Interpretive Data was last reviewed 2018. Phencyclidine, ur Not Detected CutOff 25 ng/mL [facility] Comment: Interpretive Data - Phencyclidine: ??Samples containing greater than 25 ng/mL phencyclidine or other cross-reacting compounds are reported as positive. ??False positive and false negative results are possible. ?? Current Interpretive Data was last reviewed 2018. Urine Creatinine 42 mg/dL [facility] Comment: Interpretive Data Urine Creatinine: < 10 mg/dL is extremely dilute = or > 10 but < 20 mg/dL is dilute = or > 20 mg/dL is normal Current Interpretive Data was last revised on 2017. Urine 06/28/2019 6:54 PM CAR BLOCKER 06/28/2019 7:03 PM CAR BLOCKER Narrative [facility] - 06/28/2019 7:47 PM CAR BLOCKER THE COLLECTION LOCATION IS [address] ??Drug of Abuse screening is performed [...] ORDERABLES Final Re sult Performing Organization Address City/[facility]/ZIP Co de Phone Number [facility] [place] [address] * (ABNORMAL) Urinalysis reflex to microscopic and culture Urine, indwelling catheter (06/28/2019 6:54PM CAR BLOCKER) Color, ur Yellow Yellow [facility] Clarity, ur Clear Clear [facility] Specific gravity, ur 1.013 1.010 - 1.025 [facility] pH, urine 6 [facility] Protein, ur ql 1+(A) Negative [facility] Glucose, ur ql Negative Negative [facility] Ketones, ur Negative Negative [facility] Bilirubin, ur Negative Negative [facility] Blood, ur Negative Negative [facility] Urobilinogen, ur <2.0 <2.0 mg/dL [facility] Nitrite, ur Negative Negative [facility] Leukocyte esterase, ur 1+(A) Negative [facility] UA reflex comment Reflex to microscopic UA will be performed. [facility] Urine, indwelling catheter 06/28/2019 6:54 PM CAR BLOCKER 06/28/2019 7:03 PM CAR BLOCKER Narrative [facility] - 06/28/2019 7:09 PM CAR BLOCKER THE [facility] COLLECTION LOCATION IS [address] Urine pH is affected by diet, medications, systemic acid-base disturbances, and renal tubular function. ??pH may affect urinary stone formation. ??For example, urine pH below 6.0 may help reduce the tendency for calcium phosphate stones and pH greater than 6.0 may reduce the tendency for uric acid stone formation. Source: [facility] [employer]. Last revised 08-05-2017 us Holly Monzon MD LAB MICROBIOLOGY - GENERAL O RDERABLES Final Result Performing Organization Address [facility]/ZIP Co de Phone Number [facility] [place] [address] * (ABNORMAL) ECG 12-LEAD (06/28/2019 6:51 PM CAR BLOCKER) Narrative [facility] - 06/28/2019 6:51 PM CAR BLOCKER Forrest Begum MD ? 06/28/2019 ??6:52 PM [...] Interpretation: Interpretation: abnormal Forrest Begum MD 06/28/19 [id number] us Holly Monzon MD ECG ORDERABLES Final Result [facility] * CT Chest Abdomen Pelvis W Contrast (06/28/2019 6:27 PM CAR BLOCKER) Anatomical Region Laterality Modality Body N/A Computed Tomogra phy 06/28/2019 7:21 PM CAR BLOCKER Impressions 06/29/2019 2:23 PM CAR BLOCKER 1. ??No acute intra-abdominal traumatic injury. 2. ??Scattered, biapical groundglass opacities with septal line thickening may represent mild pulmonary edema. 3. ??Mild bibasilar atelectasis. Dictated by: Mikhail Beyer The radiology attending physician has personally reviewed this study, and had reviewed and/or edited this written report and agrees with it. Electronically signed by: Gilberto Fuentes M.D. Narrative 06/29/2019 2:23 PM CAR BLOCKER EXAMINATION: ??Computed tomography of the chest, abdomen [...] CTA Lower Extremity Left (06/28/2019 6:27 PM CAR BLOCKER) Anatomical Region Laterality Modality Lower Extremities Left Computed Tomog maryann 06/28/2019 7:48 PM CAR BLOCKER Impressions 06/29/2019 2:46 PM CAR BLOCKER 1. ??Left lower extremity: Three-vessel runoff. 2. [...] Gilberto Fuentes M.D. Narrative 06/29/2019 2:46 PM CAR BLOCKER EXAMINATION: ??CT ANGIOGRAPHY OF THE LEFT LOWER [...] Cervical Spine WO Contrast (06/28/2019 6:21 PM CAR BLOCKER) Anatomical Region Laterality Modality Head and Neck N/A Computed Tomogra phy 06/28/2019 6:59 PM CAR BLOCKER Impressions 06/29/2019 10:45 AM CAR BLOCKER 1. No acute intracranial abnormality, such as [...] Krupa Grossman M.D. Narrative 06/29/2019 10:45 AM CAR BLOCKER EXAMINATION: Noncontrast head CT CT of the [...] Result * ED INTUBATION (06/28/2019 5:37 PM CAR BLOCKER) Forrest Stewart MD - 06/28/2019 5:37 PM CAR BLOCKER Mago Brian MD ? 06/28/2019 ??5:39 PM Intubation Date/Time: 06/28/2019 5:37 PM Performed by: Mago Brian MD Authorized by: Forrest Begum MD [place] Protocol: ??RN Notified of Procedure: yes ?Informed [...] and matched to patient identification: n/a ?Responsible constitution party for transporting specimen(s) to lab determined: n/a ?? us Forrest Begum MD IN CLINIC/BEDSIDE ORDERABLES Final Result * (ABNORMAL) Extrensic thromboelastometry (EXTEM) (06/28/2019 5:35 PM CAR BLOCKER) Clotting Time-Extrinsic 81(H) 42 - 60 sec [facility] Clot Formation Time-Extrinsic 145(H) 45 - 131 sec [facility] Angle-Extrinsi c 62(L) 65 - 83 Degree [facility] Max Clot Firmness-Extri nsic 51(L) 53 - 75 mm [facility] Lysis 30-Extrinsic 100 85 - 100 % [facility] Blood specimen (specimen) 06/28/2019 5:35 PM CAR BLOCKER 06/28/2019 5:40 PM CAR BLOCKER Narrative [facility] - 06/28/2019 6:48 PM CAR BLOCKER THE BJ COLLECTION LOCATION IS [address] us Forrest Begum MD LAB BLOOD ORDERABLES Final Re sult [facility] Department [place] [address] * Thrombocyte inhibited fibrinogen (FIBTEM) (06/28/2019 5:35 PM CAR BLOCKER) Maximum Clot Firm-Fibrinogen 12 9 - 29 mm [facility] Blood specimen (specimen) 06/28/2019 5:35 PM CAR BLOCKER 06/28/2019 5:40 PM CAR BLOCKER Narrative [facility] - 06/28/2019 6:48 PM CAR BLOCKER THE BJ COLLECTION LOCATION IS [address] Forrest Begum MD LAB BLOOD ORDERABLES Final Re sult Performing Organization Address [facility] de Phone Number [facility] Department [place] [address] * (ABNORMAL) Blood gas, venous (06/28/2019 5:35 PM CAR BLOCKER) pH, Venous 7.27(L) 7.32 - 7.43 [facility] PCO2, Venous 63(H) 40 - 50 mmHg [facility] PO2, Venous 30 mmHg [facility] Comment: Interpretive Data No Reference Range Established Current Interpretive Data was last revised on 2017. HCO3 Venous, Calculated 30 20 - 30 mmol/L [facility] BE, venous 1 mmol/L [facility] Comment: Interpretive Data No Reference Range Established Current Interpretive Data was last revised on 2017. Blood specimen (specimen) 06/28/2019 5:35 PM CAR BLOCKER 06/28/2019 5:40 PM CAR BLOCKER Narrative [facility] - 06/28/2019 5:45 PM CAR BLOCKER THE BJ COLLECTION LOCATION IS [address] us Forrest Begum MD LAB BLOOD ORDERABLES Final Re sult Performing Organization Address [facility] Co de Phone Number [facility] Department [place] [address] * (ABNORMAL) POCT creatinine (06/28/2019 5:27 PM CAR BLOCKER) Creatinine POC 1.4(H) 0.6 - 1.1 mg/dL [facility] Blood specimen (specimen) 06/28/2019 5:27 PM CAR BLOCKER 06/28/2019 5:27 PM CAR BLOCKER us Forrest Begum MD LAB POCT ORDERABLES - DEVICE Final Result Performing Organization Address [facility] Co de Phone Number [facility] [place] [address] * POCT lactate (06/28/2019 5:23 PM CAR BLOCKER) Lactate POC i-STAT 1.5 0.7 - 2.2 mmol/L [facility] Blood specimen (specimen) 06/28/2019 5:23 PM CAR BLOCKER 06/28/2019 5:23 PM CAR BLOCKER us Forrest Begum MD LAB POCT ORDERABLES - DEVICE Final Result Performing Organization Address [facility] Co de Phone Number [facility] [place] [address] * POCT glucose (06/28/2019 5:18 PM CAR BLOCKER) Glucose, POC 161 70 - 199 mg/dL [facility] Blood specimen (specimen) 06/28/2019 5:18 PM CAR BLOCKER 06/28/2019 5:18 PM CAR BLOCKER us Forrest Begum MD LAB POCT ORDERABLES - DEVICE Final Result Performing Organization Address [facility] Co de Phone Number [facility] [place] [address] * MA INSJ NON-TUNNELED CENTRAL VENOUS CATH AGE 5 YR/> (06/28/2019 5:10 PM CAR BLOCKER) Narrative Zana Franklin MD - 06/28/2019 5:10 PM CAR BLOCKER Zana Franklin MD ? 07/04/2019 10:20 AM Central Line Insertion Date/Time: 06/29/2019 3:53 AM Performed by: Zana Franklin MD Authorized by: Zana Franklin MD [place] Protocol: RN Notified of Procedure: yes ?? [...] Final * Troponin I (06/28/2019 5:02 PM CAR BLOCKER) Troponin I <0.03 0.00 - 0.03 ng/mL [facility] Comment: Interpretive Data: Normal plasma Troponin I [...] for Troponin assay. References: 1. Clin Chem 2013;[id number] 2. Journal of the [place] [employer] 2012;60:1581-98 Current Interpretive Data Last Revised Date: 2018. Blood specimen (specimen) 06/28/2019 5:02 PM CAR BLOCKER 06/28/2019 5:38 PM CAR BLOCKER Forrest Begum MD LAB BLOOD ORDERABLES Final Re sult Performing Organization Address [facility] Co de Phone Number [facility] [place] [employer] [place] [place] [address] * Ethanol (06/28/2019 5:02 PM CAR BLOCKER) Ethanol <10 <=10 mg/dL [facility] Comment: Interpretive Data Legal limit of intoxication > or = 80 mg/dL Levels > or = 400 mg/dL are potentially TOXIC. Current interpretive data was last revised on 2018. Blood specimen (specimen) 06/28/2019 5:02 PM CAR BLOCKER 06/28/2019 5:38 PM CAR BLOCKER Forrest Begum MD LAB BLOOD ORDERABLES Final Re sult Performing Organization Address [facility] de Phone Number [facility] Department [place] [employer] [place] [place] [address] * Creatine kinase (CK), total (06/28/2019 5:02 PM CAR BLOCKER) CK 81 30 - 200 Units/L [facility] Blood specimen (specimen) 06/28/2019 5:02 PM CAR BLOCKER 06/28/2019 5:38 PM CAR BLOCKER Forrest Begum MD LAB BLOOD ORDERABLES Final Re sult Performing Organization Address [facility] [place] [address] * Critical Result Callback Chemistry (06/28/2019 5:02 PM CAR BLOCKER) Date Notified [id number] [facility] Time Notified 1815 [facility] TestName Moses [facility] Called/Read Back Mago BEJARANO [facility] Credentials [facility] Called By Katelynn Hanley [facility] Blood specimen (specimen) 06/28/2019 5:02 PM CAR BLOCKER 06/28/2019 5:38 PM CAR BLOCKER us Holly Monzon MD LAB BLOOD ORDERABLES Final R esult [facility] Department [place] [address] * (ABNORMAL) Differential, auto (06/28/2019 5:02 PM CAR BLOCKER) Neutrophil abs 3.0 1.7 - 6.5 K/cumm [facility] Imm gran abs 0.2(H) 0.0 - 0.1 K/cumm [facility] Lymphocyte abs 3.1 0.8 - 3.3 K/cumm [facility] Monocyte abs 0.3 0.2 - 0.8 K/cumm [facility] Eosinophil abs 0.1 0.0 - 0.5 K/cumm [facility] Basophil abs 0.0 0.0 - 0.1 K/cumm [facility] Neutrophil pct 44.6 % [facility] Comment: Interpretive Data Percent cell count reference ranges are not reported, since discordance with absolute values may lead to misinterpretation of CBC data. Current Interpretive Data was last revised on 2017. Imm gran pct 2.5 % [facility] Comment: Interpretive Data Percent cell count reference ranges are not reported, since discordance with absolute values may lead to misinterpretation of CBC data. Current Interpretive Data was last revised on 2017. Lymphocyte pct 46.5 % [facility] Comment: Interpretive Data Percent cell count reference ranges are not reported, since discordance with absolute values may lead to misinterpretation of CBC data. Current Interpretive Data was last revised on 2017. Monocyte pct 5.1 % [facility] Comment: Interpretive Data Percent cell count reference [...] 2017. Blood specimen (specimen) 06/28/2019 5:02 PM CAR BLOCKER 06/28/2019 5:38 PM CAR BLOCKER us Holly Monzon MD LAB BLOOD ORDERABLES Final R esult [facility] Department [place] [address] * VerifyNow aspirin (06/28/2019 5:02 PM CAR BLOCKER) VerifyNow aspirin [address] [facility] Comment: [...] 2017. Blood specimen (specimen) 06/28/2019 5:02 PM CAR BLOCKER 06/28/2019 7:03 PM CAR BLOCKER Narrative [facility] - 06/28/2019 7:43 PM CAR BLOCKER THE BJ COLLECTION LOCATION IS [address] us Holly Monzon MD LAB BLOOD ORDERABLES Final R esult Performing Organization Address [facility]/ZIP Co de Phone Number [facility] [place] [address] * aPTT (06/28/2019 5:02 PM CAR BLOCKER) aPTT 25 25 - 37 sec [facility] Comment: Code Blue Specimen Interpretive data Heparin therapeutic range: 60-90 seconds Range based on correlation with therapeutic heparin activity range of 0.3-0.7 units/ml. Current interpretive data was last revised on 2019. Blood specimen (specimen) 06/28/2019 5:02 PM CAR BLOCKER 06/28/2019 5:38 PM CAR BLOCKER Narrative [facility] - 06/28/2019 5:53 PM CAR BLOCKER THE BJ COLLECTION LOCATION IS [facility] us Holly Monzon MD LAB BLOOD ORDERABLES Edited Result - Final Performing Organization Address [facility] [place] [place] [address] * Protime-INR (06/28/2019 5:02 PM CAR BLOCKER) PT 12.1 8.6 - 13.0 sec [facility] Comment:Code Blue Specimen INR 1.1 0.8 - 1.2 [facility] Comment: Code Blue Specimen Interpretive data Oral anticoagulant therapeutic ranges: Venous thromboembolism prophylaxis or treatment: 2.0-3.0 CARDIOLOGY Standard range: 2.0-3.0 High-intensity range: 2.5-3.5 Refer to indication-specific guidelines for appropriate target ranges for prosthetic heart valve replacement. Current interpretive data was last revised on 2019. Blood specimen (specimen) 06/28/2019 5:02 PM CAR BLOCKER 06/28/2019 5:38 PM CAR BLOCKER Narrative [facility] - 06/28/2019 5:53 PM CAR BLOCKER THE BJ COLLECTION LOCATION IS [address] Holly Monzon MD LAB BLOOD ORDERABLES Edited Result - Final Performing Organization Address [facility] Co de Phone Number [facility] [place] [address] * Type and screen (06/28/2019 5:02 PM CAR BLOCKER) Pathologist [facility] [place], indirect Negative [facility] Blood specimen (specimen) 06/28/2019 5:02 PM CAR BLOCKER 06/28/2019 5:41 PM CAR BLOCKER Narrative [facility] - 06/28/2019 6:23 PM CAR BLOCKER Has the patient had Daratumumab (Darzalex) in the past 6 months?->Unknown THE COLLECTION LOCATION IS [address] Holly Monzon MD LAB BLOOD BANK TEST ORDERABL ES Final Result Performing Organization Address [facility] de Phone Number [facility] [place] [address] * (ABNORMAL) Comprehensive metabolic panel (06/28/2019 5:02 PM CAR BLOCKER) [facility] Sodium 141 135 - 145 mmol/L [facility] Comment:Code Blue Specimen Potassium, pl 6.9(C) 3.3 - 4.9 mmol/L [facility] Comment:Code Blue Specimen Chloride 103 97 - 110 mmol/L [facility] Comment:Code Blue Specimen CO2 29 22 - 32 mmol/L [facility] Comment:Code Blue Specimen Anion gap 9 2 - 15 mmol/L [facility] Comment:Code Blue Specimen BUN 38(H) 8 - 25 mg/dL [facility] Comment:Code Blue Specimen Creatinine 1.50(H) 0.60 - 1.10 mg/dL [facility] Comment:Code Blue Specimen Glucose 211(H) 70 - 199 mg/dL [facility] Comment: Code Blue Specimen Interpretive Data Fasting [...] 2017. Calcium 8.8 8.5 - 10.3 mg/dL [facility] Comment:Code Blue Specimen Bilirubin, total 0.2 0.1 - 1.2 mg/dL [facility] Comment:Code Blue Specimen Protein, pl 6.2(L) 6.5 - 8.5 g/dL [facility] Comment:Code Blue Specimen Albumin 3.6 3.5 - 5.0 g/dL [facility] Comment:Code Blue Specimen Alk phos 77 40 - 130 Units/L [facility] Comment:Code Blue Specimen ALT 41 7 - 45 Units/L [facility] Comment:Code Blue Specimen AST 43 10 - 45 Units/L [facility] Comment:Code Blue Specimen Blood specimen (specimen) 06/28/2019 5:02 PM CAR BLOCKER 06/28/2019 5:38 PM CAR BLOCKER Narrative [facility] - 06/28/2019 6:06 PM CAR BLOCKER THE BJ COLLECTION LOCATION IS [address] us Holly Monzon MD LAB BLOOD ORDERABLES Edited Result - Final [facility] Department [place] [address] * (ABNORMAL) CBC with auto differential (06/28/2019 5:02 PM CAR BLOCKER) WBC 6.7 3.8 - 9.9 K/cumm [facility] Comment:Code Blue Specimen Hgb 9.0(L) 11.9 - 15.5 g/dL [facility] Hct 24.2(L) 35.6 - 45.5 % [facility] Plt 195 150 - 400 K/cumm [facility] MPV 11.1 9.1 - 12.3 fL [facility] RBC 2.57(L) 3.90 - 5.20 M/cumm [facility] MCV 94.2 81.3 - 96.4 fL [facility] MCH 35.0(H) 27.1 - 33.3 pg [facility] MCHC 37.2(H) 32.3 - 35.7 g/dL [facility] RDW CV 26.7(H) 11.1 - 14.9 % [facility] RDW SD 69.5(H) 35.7 - 48.1 fL [facility] NRBC abs 0.04(H) 0.00 - 0.01 K/cumm [facility] Blood specimen (specimen) 06/28/2019 5:02 PM CAR BLOCKER 06/28/2019 5:38 PM CAR BLOCKER Narrative [facility] - 06/28/2019 5:44 PM CAR BLOCKER THE COLLECTION LOCATION IS [address] us Holly Monzon MD LAB BLOOD ORDERABLES Final R esult [facility] Department [place] [address] documented in this encounter Visit Diagnoses Diagnosis [...] due to sick sinus syndrome (CMS/HCC) (HCC) Type III open displaced comminuted fracture of [...] 07/01/19 at 1200 Given 07/06/2019 12:11 PM CAR BLOCKER 1,000 mg Given 07/06/2019 6:45 AM CAR BLOCKER 1,000 mg Given 07/05/2019 11:10 PM CAR BLOCKER 1,000 mg albuterol HFA (PROVENTIL HFA,VENTOLIN HFA,PROAIR HFA) 90 mcg/actuation inhaler 2 puff 2 puff, inhalation, Every 6 hours PRN (respiratory care program director), wheezing, Starting on Mercedes 06/29/19 at 0003 atorvastatin (LIPITOR) tablet 10 mg 10 mg, oral, Nightly, First dose (after last modification) on Wed07/01/19 at 2100 Given 07/05/2019 9:46 PM CAR BLOCKER 10 mg Given 07/04/2019 9:10 PM CAR BLOCKER 10 mg Given 07/03/2019 9:52 PM CAR BLOCKER 10 mg baclofen (LIORESAL) tablet 2.5 mg 2.5 mg, oral, 3 times daily with meals, First dose (after last modification) on Wed07/04/19 at 0800 Given 07/06/2019 12:11 PM CAR BLOCKER 2.5 mg Given 07/06/2019 8:23 AM CAR BLOCKER 2.5 mg Given 07/05/2019 6:42 PM CAR BLOCKER 2.5 mg calcium carbonate (TUMS) chewable tablet 1,000 mg 1,000 mg (400 mg of elemental calcium), oral, Daily, First dose on Wed07/03/19 at 0900 Given 07/06/2019 8:24 AM CAR BLOCKER 1,000 mg Given 07/05/2019 9:37 AM CAR BLOCKER 1,000 mg Given 07/04/2019 8:30 AM CAR BLOCKER 1,000 mg cyclobenzaprine (FLEXERIL) tablet 10 mg 10 mg, oral, 3 times daily, First dose (after last modification) on Wed07/01/19 at 1600 Given 07/06/2019 3:26 PM CAR BLOCKER 10 mg Given 07/06/2019 8:23 AM CAR BLOCKER 10 mg Given 07/05/2019 9:46 PM CAR BLOCKER 10 mg docusate sodium (DOK) tablet 100 mg 100 mg, oral, 2 times daily, First dose on Wed07/01/19 at 2100, Indications: constipationIndications:constipation Given 07/05/2019 9:46 PM CAR BLOCKER 100 mg Given 07/05/2019 9:37 AM CAR BLOCKER 100 mg Given 07/04/2019 9:09 PM CAR BLOCKER 100 mg enoxaparin (LOVENOX) syringe 40 mg 40 mg, subcutaneous, Every 12 hours scheduled, First dose on 07/01/19 at 0900, Indications: Deep Vein Thrombosis PreventionIndications:Deep Vein Thrombosis Prevention Given 07/06/2019 8:24 AM CAR BLOCKER 40 mg Left Lower Abdomen Given 07/05/2019 9:46 PM CAR BLOCKER 40 mg Le ft Lower Abdomen Given 07/05/2019 9:37 AM CAR BLOCKER 40 mg Le ft Lower Abdomen furosemide (LASIX) tablet 40 mg 40 mg, oral, 2 times daily (for diuretics), First dose (after last modification) on 07/03/19 at 1600 Given 07/06/2019 3:27 PM CAR BLOCKER 40 mg Given 07/06/2019 8:24 AM CAR BLOCKER 40 mg Given 07/05/2019 4:00 PM CAR BLOCKER 40 mg gabapentin (NEURONTIN) capsule 400 mg 400 mg, oral, Every 8 hours, First dose (after last modification) on 07/01/19 at 1800 Given 07/06/2019 10:28 AM CAR BLOCKER 400 mg Given 07/06/2019 2:13 AM CAR BLOCKER 400 mg Given 07/05/2019 6:43 PM CAR BLOCKER 400 mg metoprolol (LOPRESSOR) tablet 25 mg 25 mg, oral, Every 6 hours scheduled, First dose (after last modification) on 07/01/19 at 1045 Given 07/06/2019 12:11 PM CAR BLOCKER 25 mg Given 07/06/2019 6:46 AM CAR BLOCKER 25 mg Given 07/05/2019 11:10 PM CAR BLOCKER 25 mg oxyCODONE (ROXICODONE) tablet 10 mg 10 mg, oral, Every 4 hours PRN, 2nd line for pain, Starting on 07/01/19 at 1051, Indications: PainIndications:Pain Given 07/06/2019 3:26 PM CAR BLOCKER 10 mg Given 07/06/2019 10:28 AM CAR BLOCKER 10 mg Given 07/06/2019 6:45 AM CAR BLOCKER [address] (PROTONIX) extended release tablet 40 mg 40 mg, oral, Daily, First dose on Wed07/02/19 at 0900, Do not crush, chew, cut, dissolve, open or otherwise manipulate tablet/capsule., Indications: Treatment of Non-Bleeding Gastric DisorderIndications:Treatment of Non-Bleeding Gastric Disorder Given 07/06/2019 8:23 AM CAR BLOCKER 40 mg Given 07/05/2019 9:37 AM CAR BLOCKER 40 mg Given 07/04/2019 8:30 AM CAR BLOCKER 40 mg polyethylene glycol (MIRALAX) packet 17 g 17 g, oral, Daily, First dose (after last modification) on 07/01/19 at 0900, Indications: constipationIndications:constipation Given 07/01/2019 8:14 AM CAR BLOCKER 17 g primidone (MYSOLINE) tablet 50 mg 50 mg, oral, 2 times daily, First dose (after last modification) on 07/01/19 at 0900 Given 07/06/2019 8:23 AM CAR BLOCKER 50 mg Given 07/05/2019 9:46 PM CAR BLOCKER 50 mg Given 07/05/2019 9:39 AM CAR BLOCKER 50 mg senna (SENOKOT) tablet 1 tablet 1 tablet, oral, 2 times daily, First dose on 07/01/19 at 2100 Given 07/05/2019 9:46 PM CAR BLOCKER 1 tablet Given 07/05/2019 9:37 AM CAR BLOCKER 1 tablet Given 07/04/2019 9:09 PM CAR BLOCKER 1 tablet sodium chloride 0.9 % irrigation As needed, Starting on Wed06/28/19 at 2202, Intra-Op Given 06/28/2019 10:02 PM CAR BLOCKER 9,000 mL Surgical Site documented in this encounter Discontinued [...] Recently Administered Medications Times are shown in CAR BLOCKER. Scheduled Medication Order 07/04/2019 07/05/2019 07/06/2019 acetaminophen [...] Brenner RN) 0823 (Given - Provider: Mary Lemus, [facility])1211 (Given - Provider: Mary Lemus, [facility]) calcium carbonate (TUMS) chewable tablet 1,000 mg 1,000 mg (400 mg of elemental calcium), oral, Daily, First dose on Wed07/03/19 at 0900 0830 (Given - Provider: Belia Castañeda) 0937 (Given - Provider: Glory Brenner, [facility]) 0824 (Given - Provider: Mary Lemus, [facility]) cyclobenzaprine (FLEXERIL) tablet 10 mg 10 mg, oral, 3 times daily, First dose (after last modification) on Wed07/01/19 at 1600 0830 (Given - Provider: Belia Castañeda)1659 (Given - Provider: Belia Castañeda)2109 (Given - Provider: Deepika Zaman RN) 0939 (Given - Provider: Glory Brenner, [facility])1600 (Given - Provider: Glory Brenner, RN)2146 (Given - Provider: Deepika Zaman, [facility]) 0823 (Given - Provider: Mary Lemus, [facility])1526 (Given - Provider: Mary Lemus RN) docusate sodium (DOK) tablet 100 mg 100 mg, oral, 2 times daily, First dose on 07/01/19 at 2100, Indications: constipation 0830 (Given - Provider: Belia Castañeda)210 (Given - Provider: Deepika Zaman RN) 0937 (Given - Provider: Glory Brenner, DAR[facility])214 (Given - Provider: Deepika Zaman RN) 0820 (Not Given - Provider: Mary Lemus [...] Glory Brenner, DARCI)214 (Given - Provider: Deepika Zaman RN) 0824 (Given - Provider: Mary Lmeus RN) furosemide (LASIX) tablet 40 mg 40 mg, oral, 2 times daily (for diuretics), First dose (after last modification) on 07/03/19 at 1600 0830 (Given - Provider: Belia Castañeda)1659 (Given - Provider: Belia Castañeda) 0900 (Given - Provider: Glory Brenner, DAR[facility])1600 (Given - Provider: Glory Brenner, [facility]) 0824 (Given - Provider: Mary Lemus, [facility]AR[facility])1527 (Given - Provider: Mary Lemus RN) gabapentin (NEURONTIN) capsule 400 mg 400 mg, oral, Every 8 hours, First dose (after last modification) on 07/01/19 at 1800 0216 (Given - Provider: Brooke Avalos RN)1044 (Given - Provider: Belia Castañeda)1659 (Given - Provider: Belia Castañeda) 0052 (Given - Provider: Deepika Zaman, [facility])1000 (Given - Provider: Glory Brenner, [facility])1843 (Given - Provider: Glory Brenner RN) 0213 (Given - Provider: Deepika Zaman RN)1028 (Given - Provider: Mary Lemus, [facility]) magnesium citrate oral solution 296 mL (COMPLETED) [...] Castañeda)210 (Given - Provider: Deepika Zaman, [facility]) 0939 (Given - Provider: Glory Brenner RN)2146 (Given - Provider: Deepika Zaman RN) 0823 (Given - Provider: Mary Lemus, [facility]) senna (SENOKOT) tablet 1 tablet 1 tablet, oral, 2 times daily, First dose on 07/01/19 at 2100 0830 (Given - Provider: Belia Castañeda)2108 (Given [...] 2 puff, inhalation, Every 6 hours PRN (respiratory care program director), wheezing, Starting on Mercedes 06/29/19 at 0003 oxyCODONE (ROXICODONE) tablet 10 mg 10 mg, oral, Every 4 hours PRN, 2nd line for pain, Starting on 07/01/19 at 1051, Indications: Pain 0510 (Given - Provider: Sharon Silva RN)1051 (Given - Provider: Belia Castañeda)1701 (Given - Provider: Belia Castañeda)210 (Given - Provider: Deepika Zaman RN) 0609 (Given - Provider: Deepika Zaman RN)1142 (Given - Provider: Glory Brenner, [facility])1843 (Given - Provider: Glory Brenner RN)2310 (Given - Provider: Deepika Zaman RN) 0645 (Given - Provider: Deepika Zaman RN)1028 [...] injection 5 mg 1 12/2018 sodium chloride 0.9 % irrigation 1 06/30/20 19 sodium chloride 0.9% IVPB 0-250 mL 1 2018 tobramycin (NEBCIN) topical irrigation 1 vancomycin (VANCOCIN) [...] 06/29/2019 glucagon injection 1 mg 2 06/29/2019 12/10/2018 insulin lispro (HumaLOG) inj ection 1-3 Units [...] propofol (DIPRIVAN) IV 50 mg 1 06/28/2019 succinylcholine (ANECTINE) i njection 100 mg 1 [...] 06/28/2019 documented in this encounter Care Teams Commercial Floor Covering Installer Relationship Specialty Start Date End Date Bernardo Edwards MD [address] [place] [address] PCP - General 06/14/19 07/04/20 documented as of this encounter
--- OUTSIDE RECORDS SUMMARY | 2024-08-13 05:03 | XMS_ITS | Encounter Summary ---
Author Organization [facility] Healthcare Address [address] [place] [address] Care Team Providers Care Developmental Education Instructor Name Role Phone Hernando Velasquez MD Primary Care Provider [phone] Encounter Details Date Type Department Care Team (Late st Contact Info) Description 01/11/2018 12:45 PM CDT - 12/23/2018 11:59 PM CDT Hospital Encounter [facility] Dean Stephenson MD [address] [place] [address] Social History Tobacco Use Types Packs/Day Years Used Date Smoking Tobacco: Never Assessed Comments Unknown Sex and Gender Information Value Date Recorded Sex Assigned at Not on file Legal Sex Female 10:28 AM CDT Gender Identity Female 01/30/2020 10:55 AM CDT Sexual Orientation Not on file documented as of this encounter Last Filed Vital Signs Vital Sign Reading Time Taken Comments Blood Pressure - - Pulse - - Temperature - - Respiratory Rate - - Oxygen Saturation - - Inhaled Oxygen Concentration - - Weight 88.5 kg (195 lb) 01/11/2018 2:24 PM CDT Height - - Body Mass Index 34.54 12/18/2017 5:44 PM CDT documented in this encounter Medications at Time of Discharge fluticasone propionate (FLONASE) 50 mcg/actuation nasal spray Administer 2 sprays into each nostril daily 12/18/2017 AMLODIPINE BESYLATE, BULK, MISC Take 10 mg by mouth every morning 12/08/2011 9 atorvastatin (LIPITOR) 10 mg tablet Take 20 mg by mouth daily 12/18/2017 9 cetirizine (ZyrTEC) 10 mg tablet Take 10 mg by mouth daily 12/18/2017 9 cloNIDine (CATAPRES) 0.2 mg tablet Take 0.2 mg by mouth 2 (two) times a day 12/08/2011 9 docusate sodium (COLACE) 100 mg capsule Take 100 mg by mouth nightly 11/16/2017 9 estradiol (ESTRACE) 1 mg tablet Take 0.5 mg by mouth every morning Take one tablet daily for 21 days and then stop for 7 days 11/16/2017 9 famciclovir (FAMVIR) 250 mg tablet Take 250 mg by mouth 2 (two) times a day 12/08/2011 9 metoprolol (LOPRESSOR) 100 mg tablet Take 100 mg by mouth 2 (two) times a day 12/23/2017 9 olmesartan (BENICAR) 40 mg tablet Take 40 mg by mouth daily 12/18/2017 9 primidone (MYSOLINE) 50 mg tablet Take 50 mg by mouth 2 (two) times a day 11/16/2017 9 vitamin E acetate (VITAMIN E ORAL) Take 800 Units by mouth daily 12/18/2017 9 documented as of this encounter Plan of Treatment Not on file documented as of this encounter Visit Diagnoses Not on filedocumented in this encounter Care Teams Developmental Education Instructor Relationship Specialty Start Date End Date Hernando Velasquez MD [address] [place] [address] PCP - General 12/23/18 06/13/19 documented as of this encounter
--- OUTSIDE RECORDS SUMMARY | 2024-08-13 05:03 | XMS_ITS | Encounter Summary ---
Author Organization [facility] Address [address] [place] [address] Phone Care Team Providers Care Military Administrative Technician Name Role Phone Bernardo Edwards MD Primary Care Provider [phone] Reason for Visit * Auth/Cert Specialty Diagnoses / Procedures Referred By Kesha diggs Referred To Contact Referral ID Status Reason Start Date Expiration Date Visits Re quested Visits Authorized [id number] 1 1 Encounter Details Date Type Department Care Team (Late st Contact Info) Description 06/23/2019 12:00 PM [employer] Home Care Visit [facility] [address] [place] [address] Jalen Mahmood PTA PT HOME VISIT Social [...] Sign Reading Time Taken Comments Blood Pressure 141/89 06/23/2019 1:01 PM [employer] Pulse 77 06/23/2019 1:01 PM [employer] Temperature 36.7 ??C (98 ??F) 06/23/2019 1:01 PM [employer] Respiratory Rate 18 06/23/2019 1:01 PM [employer] Oxygen Saturation 95% 06/23/2019 1:01 PM [employer] Inhaled Oxygen Concentration - - Weight - [...] jeannie in this visit Homebound Status Disciplines: Long-Term, Physical Therapy, Occupational Therapy Patient's homebound status 06/15/2019 Active 1 goal linked to scheduled/docume nted intervention 1 goal intervention scheduled/documen jeannie in this visit Monitor patient's vital signs every home health visit Disciplines: Long-Term, Physical Therapy, Occupational Therapy Monitor patient's vital [...] visit during episode of care Description: Home surgical asst to measure vital signs during every home [...] Impaired Functional Mobility/Balance Completed GT TRNG WITH 2WH.WALK , 35 FT,X2, WITH CGA 1 ASSIST. USED 2L O2 DURING GT, DUE TO SATS BEING LOWER TODAY. KEEPING O2 AT 2L KEPT O2 SATS IN 90'S. Balance Training/Activities Description: Instruct patient/caregiver and perform balance training activities. Problem:PT Impaired Functional Mobility/Balance Completed STANDING BAL. ACT AT KIT. SINK : MARCHING, HIP ABD, HIP EXT, MINI-SQUATS. KEPT REPS LOW DUE TO PT FEELING THAT LEGS WANTED TO GIVE OUT AT TIMES. Therapeutic Exercise Description: Perform therapeutic exercise, progressing as tolerated. Problem:PT Impaired Functional Mobility/Balance Completed Homebound Status Description: Patient is homebound due to difficulty in ambulation as evidenced by hx of chronic low back pain , needing a walker to ambulate, a fall risk and needing assistance with ADLS and personal care Problem:Homebound Status Goal:Patient recieves care at the most appropriate care setting Scheduled HOMEBOUND DUE TO MULTIPLE FALLS, AND A UNSTEADY GT PATTERN. LE WEAKNESS, ALONG WITH LOW BACK PN. REQ. ASSIST OF 1-2 TO LEAVE APPT. IN A W/C. Monitor Vital Signs Description: Monitor blood pressure, pulse, oxygen saturation, respirations Problem:Monitor patient's vital signs every home health visit Goal:Measure vital signs during every home health visit during episode of care Scheduled documented in this encounter Home Health Visit - Actions and Narratives Actions GT TRNG W/ 2L O2, USING A 2W H.WALK. THER EX TO LE'S CK'ING SATS. Narratives WHEN I ARRIVED, PT'S O2 SATS WERE LOW, 80-88 WITH NO O2 ON. PUT ON 2L O2 AND SATS WENT UP TO 95-96. USED O2 FOR THE ENTIRE VISIT. documented in this encounter Care Teams Military Administrative Technician Relationship Specialty Start Date End Date Bernardo Edwards MD [address] [place] [address] PCP - General 06/14/19 07/04/20 documented as of this encounter
--- OUTSIDE RECORDS SUMMARY | 2024-08-13 05:03 | XMS_ITS | Encounter Summary ---
Author Organization [facility] Healthcare Address [address] [place] [address] Care Team Providers Care Automatic Packer Operator Name Role Phone Hernando Velasquez MD Primary Care Provider [phone] Bernardo Edwards MD Primary Care Provider [phone] Encounter Details Date Type Department Care Team (Late st Contact Info) Description 06/10/2019 10:22 AM MANAGEMENT SERVICES TECHNICIAN - 06/14/2019 4:35 PM MANAGEMENT SERVICES TECHNICIAN Hospital Encounter MHB ADMIT Unknown, Abe Beebe, Destiny Jo MD [facility] [place] [address] Discharge Disposition: Discharge to home, home health skilled care Social History Tobacco Use Types Packs/Day [...] Sign Reading Time Taken Comments Blood Pressure 118/79 06/09/2019 3:25 PM MANAGEMENT SERVICES TECHNICIAN Pulse 90 06/09/2019 3:25 PM MANAGEMENT SERVICES TECHNICIAN Temperature 37 ??C (98.6 ??F) 06/09/2019 3:25 PM MANAGEMENT SERVICES TECHNICIAN Respiratory Rate - - Oxygen Saturation 98% 06/09/2019 3:25 PM MANAGEMENT SERVICES TECHNICIAN Inhaled Oxygen Concentration - - Weight 90.2 kg (198 lb 12.8 oz) 06/09/2019 3:25 PM MANAGEMENT SERVICES TECHNICIAN Height 157.5 cm (5' 2 ) 06/09/2019 3:25 PM MANAGEMENT SERVICES TECHNICIAN Body Mass Index 36.36 06/09/2019 3:25 PM MANAGEMENT SERVICES TECHNICIAN documented in this encounter Medications at Time of Discharge fluticasone propionate (FLONASE) 50 mcg/actuation nasal spray Administer 2 sprays into each nostril daily 12/18/2017 lidocaine (LIDODERM) 5 % Place 1 patch on the skin daily 06/14/2019 albuterol HFA (VENTOLIN HFA) 90 mcg/actuation inhaler 2 Doses by inhal. via small vol.nebulizer route 4 (four) times a day as needed 06/13/2019 9 AMLODIPINE BESYLATE, BULK, MISC Take 10 mg by mouth every morning 12/08/2011 9 atorvastatin (LIPITOR) 10 mg tablet Take 20 mg by mouth daily 12/18/2017 9 baclofen (LIORESAL) 10 mg tablet Take 10 mg by mouth 3 (three) times a day as needed 06/09/2019 9 cetirizine (ZyrTEC) 10 mg tablet Take 10 mg by mouth daily 12/18/2017 9 cloNIDine (CATAPRES) 0.2 mg tablet Take 0.2 mg by mouth 2 (two) times a day 12/08/2011 9 dicyclomine (BENTYL) 10 mg capsule Take 10 mg by mouth 3 (three) times a day 06/07/2019 9 dicyclomine (BENTYL) 20 mg tablet TK 1 T PO TID 3 06/14/2019 0 diphenhydrAMINE (diphenhydrAMINE ) 25 mg capsule 25 mg 06/13/2019 0 docusate sodium (COLACE) 100 mg capsule Take 100 mg by mouth nightly 11/16/2017 9 estradiol (ESTRACE) 1 mg tablet Take 0.5 mg by mouth every morning Take one tablet daily for 21 days and then stop for 7 days 11/16/2017 9 famciclovir (FAMVIR) 250 mg tablet Take 250 mg by mouth 2 (two) times a day 12/08/2011 9 furosemide (LASIX) 40 mg tablet Take 40 mg by mouth 2 (two) times a day 06/07/2019 9 gabapentin (NEURONTIN) 400 mg capsule Take 400 mg by mouth daily 06/13/2019 9 HYDROcodone-acet aminophen (NORCO) 7.5-325 mg per tablet Take 1 tablet by mouth 3 (three) times a day 06/14/2019 9 meloxicam (MOBIC) 7.5 mg tablet Take 15 mg by mouth daily 06/14/2019 9 metoprolol (LOPRESSOR) 100 mg tablet Take 100 mg by mouth 2 (two) times a day 12/23/2017 9 olmesartan (BENICAR) 40 mg tablet Take 40 mg by mouth daily 12/18/2017 9 omeprazole (PriLOSEC) 40 mg capsule Take by mouth daily before breakfast 1 06/03/2019 0 ondansetron (ZOFRAN) 4 mg tablet Take 4 mg by mouth 3 (three) times a day as needed 0 03/31/[address] (PROTONIX) 40 mg EC tablet Take 40 mg by mouth daily 06/14/2019 9 primidone (MYSOLINE) 50 mg tablet Take 50 mg by mouth 2 (two) times a day 11/16/2017 9 triamcinolone (KENALOG) 0.1 % cream Apply 1 application topically 2 (two) times a day as needed 0 06/14/2019 0 vitamin E acetate (VITAMIN E ORAL) Take 800 Units by mouth daily 12/18/2017 9 zolpidem (AMBIEN) 10 mg tablet Take 10 mg by mouth nightly 06/13/2019 9 documented as of this encounter Discharge Disposition Disposition Code Departure Means Destination Discharge to home, home health skilled care documented in this encounter Plan of Treatment Pending Results Name Type Priority Associated Diagnoses Date /Time CK-MB Lab Routine 06/09/2019 8:2 2 AM MANAGEMENT SERVICES TECHNICIAN Troponin I Lab Routine 06/09/2019 8:2 2 AM MANAGEMENT SERVICES TECHNICIAN TSH Lab Routine 06/09/2019 8:2 2 AM MANAGEMENT SERVICES TECHNICIAN documented as of this encounter Procedures Procedure Name Priority Date/Time Associated Diagnosis Comments CBC WITH AUTO DIFFERENTIAL Routine 06/13/2019 5:05 AM MANAGEMENT SERVICES TECHNICIAN BASIC METABOLIC PANEL Routine 06/13/2019 5:05 AM MANAGEMENT SERVICES TECHNICIAN GUAIAC OCCULT BLOOD, FECAL, NOT FOR NEOPLASM SCREENING Routine 06/13/2019 1:54 AM MANAGEMENT SERVICES TECHNICIAN TRANSTHORACIC ECHO (TTE) COMPLETE W DOPPLER/CF 06/12/2019 10:33 AM MANAGEMENT SERVICES TECHNICIAN IRON PROFILE W/ IBC Routine 06/12/2019 4 :54 AM MANAGEMENT SERVICES TECHNICIAN CBC WITH AUTO DIFFERENTIAL Routine 06/12/2019 4:54 AM MANAGEMENT SERVICES TECHNICIAN FERRITIN Routine 06/12/2019 4:54 AM MANAGEMENT SERVICES TECHNICIAN BASIC METABOLIC PANEL Routine 06/12/2019 4:54 AM MANAGEMENT SERVICES TECHNICIAN CARDIOLOGY REPORT 06/12/2019 12: 00 AM MANAGEMENT SERVICES TECHNICIAN CBC WITH AUTO DIFFERENTIAL Routine 06/11/2019 6:53 AM MANAGEMENT SERVICES TECHNICIAN BASIC METABOLIC PANEL Routine 06/11/2019 6:53 AM MANAGEMENT SERVICES TECHNICIAN MRI LUMBAR SPINE WO CONTRAST 06/10/2019 5:35 PM MANAGEMENT SERVICES TECHNICIAN D-DIMER, QUANTITATIVE Routine 06/10/2019 2:39 PM MANAGEMENT SERVICES TECHNICIAN B-TYPE NATRIURETIC PEPTIDE Routine 06/10/2019 2:39 PM MANAGEMENT SERVICES TECHNICIAN IRON PROFILE W/ IBC Routine 06/10/2019 1 0:11 AM MANAGEMENT SERVICES TECHNICIAN HEPATITIS PANEL, ACUTE Routine 9 10:11 AM MANAGEMENT SERVICES TECHNICIAN FERRITIN Routine 06/10/2019 10:11 AM MANAGEMENT SERVICES TECHNICIAN MYOGLOBIN, SERUM Routine 06/10/2019 10:0 7 AM MANAGEMENT SERVICES TECHNICIAN CBC WITH AUTO DIFFERENTIAL Routine 06/10/2019 6:07 AM MANAGEMENT SERVICES TECHNICIAN HEMOGLOBIN A1C Routine 06/10/2019 6:07 AM MANAGEMENT SERVICES TECHNICIAN COMPREHENSIVE METABOLIC PANEL Routine 06/10/2019 6:07 AM MANAGEMENT SERVICES TECHNICIAN MRI BRAIN WO CONTRAST 06/10/2019 12:00 AM MANAGEMENT SERVICES TECHNICIAN TROPONIN I Routine 06/09/2019 6:50 PM MANAGEMENT SERVICES TECHNICIAN BLOOD CULTURE Routine 06/09/2019 3:09 PM MANAGEMENT SERVICES TECHNICIAN TROPONIN I Routine 06/09/2019 3:02 PM MANAGEMENT SERVICES TECHNICIAN BLOOD CULTURE Routine 06/09/2019 3:02 PM MANAGEMENT SERVICES TECHNICIAN CREATINE KINASE (CK), TOTAL Routine 06/09/2019 3:02 PM MANAGEMENT SERVICES TECHNICIAN TNI WITH LIPID PANEL Routine 06/09/2019 9:19 AM MANAGEMENT SERVICES TECHNICIAN CK-MB Routine 06/09/2019 9:19 AM MANAGEMENT SERVICES TECHNICIAN TSH Routine 06/09/2019 9:19 AM MANAGEMENT SERVICES TECHNICIAN CHOLESTEROL, LDL, DIRECT Routine 06/09/2019 9:19 AM MANAGEMENT SERVICES TECHNICIAN CREATINE KINASE (CK), TOTAL Routine 06/09/2019 9:19 AM MANAGEMENT SERVICES TECHNICIAN COMPREHENSIVE METABOLIC PANEL Routine 06/09/2019 9:19 AM MANAGEMENT SERVICES TECHNICIAN CK-MB Routine 06/09/2019 8:22 AM MANAGEMENT SERVICES TECHNICIAN CBC WITH AUTO DIFFERENTIAL Routine 06/09/2019 8:22 AM MANAGEMENT SERVICES TECHNICIAN TROPONIN I Routine 06/09/2019 8:22 AM MANAGEMENT SERVICES TECHNICIAN TSH Routine 06/09/2019 8:22 AM MANAGEMENT SERVICES TECHNICIAN MYOGLOBIN, SERUM Routine 06/09/2019 8:22 AM MANAGEMENT SERVICES TECHNICIAN URINALYSIS, COMPLETE W/REFLEX TO CULTURE Routine 06/09/2019 8:13 AM MANAGEMENT SERVICES TECHNICIAN DRUGS OF ABUSE SCREEN, URINE WITHOUT CONFIRMATION Routine 06/09/2019 8:13 AM MANAGEMENT SERVICES TECHNICIAN ECG 12-LEAD 06/09/2019 7:03 AM MANAGEMENT SERVICES TECHNICIAN US CAROTIDS DUPLEX BILATERAL 06/09/2019 12:00 AM MANAGEMENT SERVICES TECHNICIAN XR CHEST 1 VIEW 06/09/2019 12:[address] AM MANAGEMENT SERVICES TECHNICIAN CT CERVICAL SPINE WO CONTRAST 06/09/2019 12:00 AM MANAGEMENT SERVICES TECHNICIAN CT HEAD WO CONTRAST 06/09/2019 1 2:00 AM MANAGEMENT SERVICES TECHNICIAN XR SPINE LUMBAR 2 OR 3 VIEWS 06/09/2019 12:00 AM MANAGEMENT SERVICES TECHNICIAN documented in this encounter Results * (ABNORMAL) Basic metabolic panel (06/13/2019 5:05 AM MANAGEMENT SERVICES TECHNICIAN) Sodium 138 135 - 145 mmol/L [facility] Potassium 5.1 3.3 - 5.1 mmol/L [facility] Chloride 98 96 - 108 mmol/L [facility] Carbon Dioxide 34(H) 22 - 32 mmol/L [facility] Anion Gap 6(L) 7 - 16 [facility] Glucose 113(H) 70 - 100 mg/dL [facility] BUN 22 8 - 25 mg/dL [facility] Creatinine 0.8 0.5 - 1.1 mg/dL [facility] Comment: NOTE: Estimated GFR (Cockroft-Gault) will NOT be calculated unless patient Height and Weight were entered. Also, Kidney Disease Stage (GFR) and Estimated GFR (Cockroft-Gault) will NOT be calculated if Creatinine result is <0.2. Kidney Disease Stage 76 mL/MIN [facility] Comment: NOTE; ??The GFR is an estimated value using the creatinine, sex, age, and race of the patient. THE Estimated Kidney Disease GFR is validated for AGES 18-70 YEARS STAGE ?mL/Min ?DESCRIPTION ??1 ?90 mL/min or more ?Normal or elevated GFR ??2 ? 60-89 mL/min ?Mildly decreased GFR ??3 ? 30-59 mL/min ?Moderately decreased GFR ??4 ? 15-29 mL/min ?Severely decreased GFR ??5 ? <15 mL/min ? Kidney failure or on dialysis Est GFR (Cockcroft-G) 70 ml/MIN [facility] Comment: Estimated GFR(Cockroft-Gault)is used to calculate patient medication dosage Calcium 8.6 8.6 - 10.3 mg/dL [facility] 06/13/2019 5:05 AM MANAGEMENT SERVICES TECHNICIAN 06/13/2019 5:36 AM MANAGEMENT SERVICES TECHNICIAN Narrative Resulting Agency Comment IN Destiny Beebe MD LAB BLOOD ORDERABL ES Final Result [facility] [address] [place] [address], [facility] [phone] * (ABNORMAL) CBC with auto differential (06/13/2019 5:05 AM MANAGEMENT SERVICES TECHNICIAN) WBC 6.5 3.8 - 9.9 X10 3/ul [facility] RBC 3.78(L) 3.90 - 5.20 x10 6/ul [facility] Hemoglobin 10.4(L) 11.9 - 15.5 g/dL [facility] Hct 33.9(L) 35.6 - 45.5 % [facility] MCV 89.7 81.3 - 96.4 fl [facility] MCH 27.5 27.1 - 33.3 pg [facility] MCHC 30.7(L) 32.3 - 35.7 g/dl [facility] RDW 14.8 11.1 - 14.9 % [facility] Plt Count 180 150 - 400 x10 3/ul [facility] MPV 11.6 9.1 - 12.3 fl [facility] Neut % 44.4 % [facility] Immature Gran % 0.8 % [facility] Lymph % 37.0 % [facility] Thomas % 12.8 % [facility] Eos % 4.5 % [facility] AUTO BASO % 0.5 % [facility] NEUTROPHIL ABS # 2.9 1.7 - 6.5 x10 3/ul [facility] Immature Gran # 0.1 0.0 - 0.1 x10 3/ul [facility] Absolute Lymphs (auto) 2.4 0.8 - 3.3 x10 3/ul [facility] Absolute Monos (auto) 0.8 0.2 - 0.8 x10 3/ul [facility] Absolute Eos (auto) 0.3 0.0 - 0.5 x10 3/ul [facility] BASOPHIL ABS # 0.0 0.0 - 0.1 x10 3/ul [facility] Nucleat RBC Rel Count 0.0 #/100WBC [facility] NRBC abs 0.00 0.00 - 0.01 x10 3/ul [facility] Absolute Neutrophils 2,900 200 - 8,000 /ul [facility] 06/13/2019 5:05 AM MANAGEMENT SERVICES TECHNICIAN 06/13/2019 5:36 AM MANAGEMENT SERVICES TECHNICIAN Narrative Resulting Agency Comment IN Destiny Beebe MD LAB BLOOD ORDERABL ES Final Result Performing Organization Address [facility] [place] [address], [facility] [phone] * Guaiac occult blood, fecal, non-neoplasm (06/13/2019 1:54 AM MANAGEMENT SERVICES TECHNICIAN) Stool Occult Blood NEGATIVE NEGATIVE [facility] 06/13/2019 1:54 AM MANAGEMENT SERVICES TECHNICIAN 06/13/2019 2:07 AM MANAGEMENT SERVICES TECHNICIAN Narrative [facility] - 06/13/2019 2:14 AM MANAGEMENT SERVICES TECHNICIAN Collected By az Resulting Agency Comment IN Destiny Beebe MD LAB BODY FLUIDS AN D STOOLS ORDERABLES Final Result Performing Organization Address [facility] [place] [address], [facility] [phone] * Transthoracic Echo Complete W Doppler/CF (06/12/2019 10:33 AM MANAGEMENT SERVICES TECHNICIAN) Anatomical Region Laterality Modality Ultrasound 06/12/2019 10:3 3 AM MANAGEMENT SERVICES TECHNICIAN Narrative 06/12/2019 6:43 PM MANAGEMENT SERVICES TECHNICIAN ? Adult Echocardiogram + + :Name: CELESTINA ANSARI ? Study Date: 06/12/2019 ?Status: IN;MAIN: : ?Patient Location: H.1S^S114^02 ??Height: 62 in ??: : ?Weight: 188 lb : :: 1950 ? Gender: Female ?BSA: 1.9 m2 ?: :Reason For Study: Syncope ?: :Ordering Physician: Amanda, ? : :Kuldeep ? : : ? : :Performed By: Julián Pak, ? : :RDCS ? : + + Procedure A two-dimensional transthoracic echocardiogram with color flow and Doppler was performed. A contrast injection of Definity was performed to improve assessment of LV function. Definity lot#[id number] administered via already established IV, Tolerated well. IV flushed after procedure, intact. Patient had no complaints. The study was technically difficult due to patient's 'body habitus'. Left Ventricle The left ventricle is normal in size. There is normal left ventricular wall thickness. Left ventricular systolic function is normal. Ejection Fraction = 55-60%. The left ventricular wall motion is normal. There is no obvious thrombus noted. Right Ventricle The right ventricle is normal size. The right ventricular systolic function is normal. Atria The left atrial size is normal. Right atrial size is normal. Atrial septum not well seen. Mitral Valve The mitral valve is normal. There is no mitral regurgitation noted. Tricuspid Valve The tricuspid valve is normal. There is trace tricuspid regurgitation. Right ventricular systolic pressure is normal. Aortic Valve Aortic valve structure is normal. No aortic stenosis . Mild aortic regurgitation. Pulmonic Valve The pulmonic valve is not well visualized. Great Vessels The aortic root is normal size. IVC not well seen. Pericardium There is no pericardial effusion. There is no pleural effusion. Diastology Grade I diastolic dysfunction, (abnormal relaxation pattern). Interpretation Summary The left ventricle is normal in size. Left ventricular systolic function is normal. Ejection Fraction = 55-60%. There is trace tricuspid regurgitation. Right ventricular systolic pressure is normal. No aortic stenosis . Mild aortic regurgitation. There is no pericardial effusion. Grade I diastolic dysfunction, (abnormal relaxation pattern). + + :Measurements with Normals ?: : ?(0.6-1.2 ?LVIDd: ?(3.5-5.7 ?? Ao root diam: ?(2.0-3.7 ?? : :IVSd: 1.1 cmcm) ? 4.6 cm ?cm) ?3.2 cm ? cm) ?: :LVPWd: ?(0.6-1.1 ?LVIDs: ?(3.1-4.6 ?? LA dimension: ?(1.9-4.0 ?? : :1.4 cm ?cm) ? 2.8 cm ?cm) ?3.5 cm ? cm) ?: + + MMode/2D Measurements & Calculations RVDd: 2.5 cm ? LVPWs: 1.5 cm ?FS: 40.0 % ? % IVS thick: 32.9 % IVSs: 1.5 cm ?EDV(Jamie): 98.1 ml ?ESV(Teich): 28.8 ml ? Ao root area: ?LVOT diam: 2.1 cmLVLd ap4: 7.0 cm ? SV(MOD-sp4): ? LVOT area: ? EDV(MOD-sp4): ?31.0 ml 8.0 cm2 ? 46.0 ml ? 3.4 cm2 ?LVLs ap4: 6.3 cm ?ESV(MOD-sp4): ?15.0 ml ?EF(MOD-sp4): 67.4 % Doppler Measurements & Calculations MV E max alina: ? MV dec time: ?Ao V2 max: ? AI dec slope: 62.2 cm/sec ? 0.28 sec ?165.6 cm/sec ? 163.3 cm/sec2 MV A max alina: ? Ao max P.9 cm/sec ?11.0 mmHg MV E/A: 0.51 ?MAU(V,D): 3.0 cm2 ? LV V1 max PG: ? TV V2 max: ?PA V2 max: ? RV V1 max: 8.3 mmHg ?64.7 cm/sec ? 107.2 cm/sec ? 79.5 cm/sec LV V1 max: ?TV max PG: ?PA max P.4 cm/sec ?1.7 mmHg ?4.6 mmHg ? TR max alina: 260.6 cm/sec TR max P.2 mmHg Electronically signed by: MD Sultan Pearson 06/12/2019 06:43 PM Resulting Agency Comment I Procedure Note Sultan Osmany Pearson MD - 06/12/2019 Adult Echocardiogram + + :Name: CELESTINA ANSARI Study Date: 06/12/2019 Status:IN;MAIN: : [facility]: 62[facility] : : Weight: 188lb : :: 1950 Gender: Female BSA: 1.9 m2: :Reason For Study: Syncope: :Ordering Physician: Amanda,: :Kuldeep: :: :Performed By: Julián Pak,: :[facility]: + + Procedure A two-dimensional transthoracic echocardiogram with color flow and Dopplerwas performed. A contrast injection of Definity was performed to improve assessment of LV function. Definity lot#[id number] administered via already established IV, Tolerated well. IV flushed after procedure, intact.Patient had no complaints. The study was technically difficult due to patient's'body habitus'. Left Ventricle The left ventricle is normal in size. There is normal left ventricularwall thickness. Left ventricular systolic function is normal. Ejection Fraction= 55-60%. The left ventricular wall motion is normal. There is no obvious thrombus noted. Right Ventricle The right ventricle is normal size. The right ventricular systolicfunction is normal. Atria The left atrial size is normal. Right atrial size is normal. Atrial septumnot well seen. Mitral Valve The mitral valve is normal. There is no mitral regurgitation noted. Tricuspid Valve The tricuspid valve is normal. There is trace tricuspid regurgitation.Right ventricular systolic pressure is normal. Aortic Valve Aortic valve structure is normal. No aortic stenosis . Mild aortic regurgitation. Pulmonic Valve The pulmonic valve is not well visualized. Great Vessels The aortic root is normal size. IVC not well seen. Pericardium There is no pericardial effusion. There is no pleural effusion. Diastology Grade I diastolic dysfunction, (abnormal relaxation pattern). Interpretation Summary The left ventricle is normal in size. Left ventricular systolic function is normal. Ejection Fraction = 55-60%. There is trace tricuspid regurgitation. Right ventricular systolic pressure is normal. No aortic stenosis . Mild aortic regurgitation. There is no pericardial effusion. Grade I diastolic dysfunction, (abnormal relaxation pattern). + + :Measurements with Normals: : (0.6-1.2 LVIDd: (3.5-5.7 Ao root diam:(2.0-3.7 : :IVSd: 1.1 cmcm) 4.6 cm cm) 3.2 cm cm): :LVPWd: (0.6-1.1 LVIDs: (3.1-4.6 LA dimension:(1.9-4.0 : :1.4 cm cm) 2.8 cm cm) 3.5 cm cm): + + MMode/2D Measurements & Calculations RVDd: 2.5 cm LVPWs: 1.5 cm FS: 40.0 % % IVS thick:32.9 % IVSs: 1.5 cm EDV(Teich): 98.1 ml ESV(Teich): 28.8 ml Ao root area: LVOT diam: 2.1 cmLVLd ap4: 7.0 cm SV(MOD-sp4): LVOT area: EDV(MOD-sp4): 31.0 ml 8.0 cm2 46.0 ml 3.4 cm2 LVLs ap4: 6.3 cm ESV(MOD-sp4): 15.0 ml EF(MOD-sp4): 67.4 % Doppler Measurements & Calculations MV E max alina: MV dec time: Ao V2 max: AI dec slope: 62.2 cm/sec 0.28 sec 165.6 cm/sec 163.3 cm/sec2 MV A max alina: Ao max P.9 cm/sec 11.0 mmHg MV E/A: 0.51 MAU(V,D): 3.0 cm2 LV V1 max PG: TV V2 max: PA V2 max: RV V1 max: 8.3 mmHg 64.7 cm/sec 107.2 cm/sec 79.5 cm/sec LV V1 max: TV max PG: PA max P.4 cm/sec 1.7 mmHg 4.6 mmHg TR max alina: 260.6 cm/sec TR max P.2 mmHg Electronically signed by: MD Sultan Pearson 06/12/2019 06:43 PM us Pepper Patel MD CV ECHO PROCEDURES Final Res ult * Ferritin (06/12/2019 4:54 AM MANAGEMENT SERVICES TECHNICIAN) Ferritin 24.6 12.0 - 263.0 ng/mL [facility] Comment: Female: Premenopause ?13.0-150.0 ng/mL Female: Postmenopause ?? 12.0-263.0 ng/mL 06/12/2019 4:54 AM MANAGEMENT SERVICES TECHNICIAN 06/12/2019 5:09 AM MANAGEMENT SERVICES TECHNICIAN Narrative Resulting Agency Comment IN us Destiny Beebe MD LAB BLOOD ORDERABL ES Final Result Performing Organization Address City/[facility]/ZIP Co de Phone Number [address] [phone] * (ABNORMAL) Iron profile w/ IBC (06/12/2019 4:54 AM MANAGEMENT SERVICES TECHNICIAN) Iron 38 37 - 145 ug/dL [facility] Comment: Results Reviewed TIBC 368 228 - 428 ug/dL [facility] Transferrin % Sat 10(L) 20 - 50 % [facility] 06/12/2019 4:54 AM MANAGEMENT SERVICES TECHNICIAN 06/12/2019 5:09 AM MANAGEMENT SERVICES TECHNICIAN Narrative Resulting Agency Comment IN us Destiny Beebe MD LAB BLOOD ORDERABL ES Final Result Performing Organization Address City/[facility]/ZIP Co de Phone Number [address] [phone] * (ABNORMAL) Basic metabolic panel (06/12/2019 4:54 AM MANAGEMENT SERVICES TECHNICIAN) Sodium 140 135 - 145 mmol/L [facility] Potassium 4.9 3.3 - 5.1 mmol/L [facility] Chloride 97 96 - 108 mmol/L [facility] Carbon Dioxide 33(H) 22 - 32 mmol/L [facility] Anion Gap 10 7 - 16 [facility] Glucose 106(H) 70 - 100 mg/dL [facility] BUN 17 8 - 25 mg/dL [facility] Creatinine 0.8 0.5 - 1.1 mg/dL [facility] Comment: NOTE: Estimated GFR (Cockroft-Gault) will NOT be calculated unless patient Height and Weight were entered. Also, Kidney Disease Stage (GFR) and Estimated GFR (Cockroft-Gault) will NOT be calculated if Creatinine result is <0.2. Kidney Disease Stage 76 mL/MIN [facility] Comment: NOTE; ??The GFR is an estimated value using the creatinine, sex, age, and race of the patient. THE Estimated Kidney Disease GFR is validated for AGES 18-70 YEARS STAGE ?mL/Min ?DESCRIPTION ??1 ?90 mL/min or more ?Normal or elevated GFR ??2 ? 60-89 mL/min ?Mildly decreased GFR ??3 ? 30-59 mL/min ?Moderately decreased GFR ??4 ? 15-29 mL/min ?Severely decreased GFR ??5 ? <15 mL/min ? Kidney failure or on dialysis Est GFR (Cockcroft-G) 70 ml/MIN [facility] Comment: Estimated GFR(Cockroft-Gault)is used to calculate patient medication dosage Calcium 8.5(L) 8.6 - 10.3 mg/dL [facility] 06/12/2019 4:54 AM MANAGEMENT SERVICES TECHNICIAN 06/12/2019 5:09 AM MANAGEMENT SERVICES TECHNICIAN Narrative Resulting Agency Comment IN Destiny Beebe MD LAB BLOOD ORDERABL ES Final Result [facility] [address] [place] [address], [facility] [phone] * (ABNORMAL) CBC with auto differential (06/12/2019 4:54 AM MANAGEMENT SERVICES TECHNICIAN) WBC 7.5 3.8 - 9.9 X10 3/ul [facility] RBC 3.96 3.90 - 5.20 x10 6/ul [facility] Hemoglobin 10.8(L) 11.9 - 15.5 g/dL [facility] Hct 36.0 35.6 - 45.5 % [facility] MCV 90.9 81.3 - 96.4 fl [facility] MCH 27.3 27.1 - 33.3 pg [facility] MCHC 30.0(L) 32.3 - 35.7 g/dl [facility] RDW 14.8 11.1 - 14.9 % [facility] Plt Count 189 150 - 400 x10 3/ul [facility] MPV 11.0 9.1 - 12.3 fl [facility] Neut % 47.4 % [facility] Immature Gran % 1.1 % [facility] Lymph % 36.0 % [facility] Thomas % 11.1 % [facility] Eos % 4.0 % [facility] AUTO BASO % 0.4 % [facility] NEUTROPHIL ABS # 3.5 1.7 - 6.5 x10 3/ul [facility] Immature Gran # 0.1 0.0 - 0.1 x10 3/ul [facility] Absolute Lymphs (auto) 2.7 0.8 - 3.3 x10 3/ul [facility] Absolute Monos (auto) 0.8 0.2 - 0.8 x10 3/ul [facility] Absolute Eos (auto) 0.3 0.0 - 0.5 x10 3/ul [facility] BASOPHIL ABS # 0.0 0.0 - 0.1 x10 3/ul [facility] Nucleat RBC Rel Count 0.0 #/100WBC [facility] NRBC abs 0.00 0.00 - 0.01 x10 3/ul [facility] Absolute Neutrophils 3,500 200 - 8,000 /ul [facility] 06/12/2019 4:54 AM MANAGEMENT SERVICES TECHNICIAN 06/12/2019 5:09 AM MANAGEMENT SERVICES TECHNICIAN Narrative Resulting Agency Comment IN Destiny Beebe MD LAB BLOOD ORDERABL ES Final Result [facility] [address] [phone] * CARDIOLOGY REPORT (06/12/2019 12:00 AM MANAGEMENT SERVICES TECHNICIAN) Anatomical Region Laterality Modality Other Narrative 06/12/2019 12:00 AM MANAGEMENT SERVICES TECHNICIAN Ordered by an unspecified provider. Historical Provider CV CARDIAC SERVICES EVAN OZUNA Final Result * (ABNORMAL) Basic metabolic panel (06/11/2019 6:53 AM MANAGEMENT SERVICES TECHNICIAN) Sodium 141 135 - 145 mmol/L [facility] Potassium 4.9 3.3 - 5.1 mmol/L [facility] Chloride 101 96 - 108 mmol/L [facility] Carbon Dioxide 34(H) 22 - 32 mmol/L [facility] Anion Gap 6(L) 7 - 16 [facility] Glucose 114(H) 70 - 100 mg/dL [facility] BUN 18 8 - 25 mg/dL [facility] Creatinine 0.8 0.5 - 1.1 mg/dL [facility] Comment: NOTE: Estimated GFR (Cockroft-Gault) will NOT be calculated unless patient Height and Weight were entered. Also, Kidney Disease Stage (GFR) and Estimated GFR (Cockroft-Gault) will NOT be calculated if Creatinine result is <0.2. Kidney Disease Stage 76 mL/MIN [facility] Comment: NOTE; ??The GFR is an estimated value using the creatinine, sex, age, and race of the patient. THE Estimated Kidney Disease GFR is validated for AGES 18-70 YEARS STAGE ?mL/Min ?DESCRIPTION ??1 ?90 mL/min or more ?Normal or elevated GFR ??2 ? 60-89 mL/min ?Mildly decreased GFR ??3 ? 30-59 mL/min ?Moderately decreased GFR ??4 ? 15-29 mL/min ?Severely decreased GFR ??5 ? <15 mL/min ? Kidney failure or on dialysis Est GFR (Cockcroft-G) 70 ml/MIN [facility] Comment: Estimated GFR(Cockroft-Gault)is used to calculate patient medication dosage Calcium 8.3(L) 8.6 - 10.3 mg/dL [facility] 06/11/2019 6:53 AM MANAGEMENT SERVICES TECHNICIAN 06/11/2019 7:05 AM MANAGEMENT SERVICES TECHNICIAN Narrative Resulting Agency Comment IN Destiny Beebe MD LAB BLOOD ORDERABL ES Final Result [facility] [address] [place] [address], [facility] [phone] * (ABNORMAL) CBC with auto differential (06/11/2019 6:53 AM MANAGEMENT SERVICES TECHNICIAN) [facility] WBC 7.0 3.8 - 9.9 X10 3/ul [facility] RBC 3.61(L) 3.90 - 5.20 x10 6/ul [facility] Hemoglobin 10.0(L) 11.9 - 15.5 g/dL [facility] Hct 32.5(L) 35.6 - 45.5 % [facility] MCV 90.0 81.3 - 96.4 fl [facility] MCH 27.7 27.1 - 33.3 pg [facility] MCHC 30.8(L) 32.3 - 35.7 g/dl [facility] RDW 14.6 11.1 - 14.9 % [facility] Plt Count 161 150 - 400 x10 3/ul [facility] MPV 10.8 9.1 - 12.3 fl [facility] Neut % 45.7 % [facility] Immature Gran % 0.7 % [facility] Lymph % 38.9 % [facility] Thomas % 10.9 % [facility] Eos % 3.4 % [facility] AUTO BASO % 0.4 % [facility] NEUTROPHIL ABS # 3.2 1.7 - 6.5 x10 3/ul [facility] Immature Gran # 0.1 0.0 - 0.1 x10 3/ul [facility] Absolute Lymphs (auto) 2.7 0.8 - 3.3 x10 3/ul [facility] Absolute Monos (auto) 0.8 0.2 - 0.8 x10 3/ul [facility] Absolute Eos (auto) 0.2 0.0 - 0.5 x10 3/ul [facility] BASOPHIL ABS # 0.0 0.0 - 0.1 x10 3/ul [facility] Nucleat RBC Rel Count 0.0 #/100WBC [facility] NRBC abs 0.00 0.00 - 0.01 x10 3/ul [facility] Absolute Neutrophils 3,200 200 - 8,000 /ul [facility] 06/11/2019 6:53 AM MANAGEMENT SERVICES TECHNICIAN 06/11/2019 7:05 AM MANAGEMENT SERVICES TECHNICIAN Narrative Resulting Agency Comment IN Destiny Beebe MD LAB BLOOD ORDERABL ES Final Result [facility] [address] [place], [place] [address] [phone] * MRI Lumbar Spine WO Contrast (06/10/2019 5:35 PM MANAGEMENT SERVICES TECHNICIAN) Anatomical Region Laterality Modality Spine N/A Magnetic Resonan ce 06/10/2019 8:54 AM MANAGEMENT SERVICES TECHNICIAN Narrative 06/10/2019 8:59 AM MANAGEMENT SERVICES TECHNICIAN Patient Name: CELESTINA ANSARI ?Ordering Dr: Sophia Harrison MD ?? D.O.B: 1950 ? Exam Date: 06/10/19 ?? 1735 ?? Age: 68 ?Sex: Female ? MR#: [id number] ?? Loc: ??S114-02 ? RADIOLOGY REPORT ?? Order #[id number] ?? Magnetic Resonance Imaging ? MRI Lumbar ? Signed ?? EXAM DESCRIPTION: ??MRI Lumbar ? REASON FOR STUDY: ??Chronic low back pain, increased bilateral leg weakness and ?? 4 falling episodes over the last 2 weeks. ??Pain into the buttock and both hips. ? TECHNIQUE: ?? Sagittal and Axial imaging includes T1, T2, STIR sequences. ? COMPARISON: ??CT abdomen and pelvis dated 06/07/2019 and lumbar spine ?? radiographs dated 06/09/2019. ? FINDINGS: ? SEGMENTATION: No transitional anatomy. The lowest well-developed disc space is ?? labeled L5-S1. ? ALIGNMENT: The anterior-posterior alignment is maintained. ? VERTEBRAE: The lumbar vertebral body heights are maintained. ??Minor scattered ?? endplate degenerative changes and marginal spurring is most noticeable at ?? L1-L2. ??Scattered facet arthropathy is most noticeable from L3-L4 through ?? L5-S1. ? DISC HEIGHT: Multilevel mild intervertebral disc height loss and disc ?? desiccation. ? HARDWARE: None in the spine. ? CORD/CAUDA: The conus medullaris terminates at the L1-L2 disc space. ? INDIVIDUAL DISC LEVELS: ? T12-L1: No significant disc bulge, spinal canal or neural foraminal narrowing. ? L1-L2: Circumferential disc bulge with thickening of ligamentum flavum and ?? facet arthropathy. ??Spinal canal and neural foramen remain patent. ? L2-L3: Circumferential disc bulge and a superimposed tiny central disc ?? protrusion with an annular fissure. ??Thickening of the ligamentum flavum and ?? facet arthropathy. ??Spinal canal and neural foramen remain patent. ? L3-L4: Circumferential disc bulge and a superimposed tiny central annular ?? fissure. ??Thickening of the ligamentum flavum and facet arthropathy. ? Posterior epidural fat effaces the dorsal thecal sac. ??There are bilateral ?? facet joint effusions. ??Spinal canal is mildly narrowed. ??There is mild ?? bilateral neural foraminal narrowing, left greater than right. ? L4-L5: Mild disc bulge with thickening of the ligamentum flavum and facet ?? arthropathy. ??Trace bilateral facet joint effusions. ??The spinal canal remains ?? patent. ??Mild right and no significant left neural foraminal narrowing. ? L5-S1: Circumferential disc bulge and a superimposed tiny central disc ?? protrusion with an annular fissure. ??Thickening of ligamentum flavum and facet ?? arthropathy. ??The spinal canal remains patent. ??Bilateral neural foramen are ?? also patent. ? IMPRESSION: ? 1. ??Minor lumbar spondylotic changes as described. ??The spinal canal stenosis ?? is most noticeable at L3-L4 where there is mild narrowing. ? 2. ??There is no significant neural foraminal narrowing. ? 3. ??Multilevel facet arthropathy is most noticeable from L3-L4 through L5-S1 ?? on both sides. ? THIS IS AN ELECTRONICALLY VERIFIED FINAL REPORT ?? 06/10/2019 8:59 AM - Electronically signed by Gerson Terrell D.O. ?? Gerson Terrell D.O. ? AP ?? D: ??06/10/2019 8:59 AM ?? T: ? Report ID: [id number] ?? Reading Location: ??[id number] ? REPORT ELECTRONICALLY SIGNED IN OTHER VENDOR SYSTEM ?? Resulting Agency Comment I Procedure Note Gerson Terrell DO - 06/10/2019 Patient Name: CELESTINA ANSARI Dr: Sophia Harrison MD D.O.B: 1950 Exam Date: 06/10/191734 Age: 68 Sex: Female MR#: [id number] Loc: S114-02 RADIOLOGY REPORT Order #[id number] Magnetic Resonance Imaging MRI Lumbar Signed EXAM DESCRIPTION: MRI Lumbar REASON FOR STUDY: Chronic low back pain, increased bilateral legweakness and 4 falling episodes over the last 2 weeks. Pain into the buttock and bothhips. TECHNIQUE: Sagittal and Axial imaging includes T1, T2, STIR sequences. COMPARISON: CT abdomen and pelvis dated 06/07/2019 and lumbar spine radiographs dated 06/09/2019. FINDINGS: SEGMENTATION: No transitional anatomy. The lowest well-developed discspace is labeled L5-S1. ALIGNMENT: The anterior-posterior alignment is maintained. VERTEBRAE: The lumbar vertebral body heights are maintained. Minorscattered endplate degenerative changes and marginal spurring is most noticeable at L1-L2. Scattered facet arthropathy is most noticeable from L3-L4 through L5-S1. DISC HEIGHT: Multilevel mild intervertebral disc height loss and disc desiccation. HARDWARE: None in the spine. CORD/CAUDA: The conus medullaris terminates at the L1-L2 disc space. INDIVIDUAL DISC LEVELS: T12-L1: No significant disc bulge, spinal canal or neural foraminalnarrowing. L1-L2: Circumferential disc bulge with thickening of ligamentum flavumand facet arthropathy. Spinal canal and neural foramen remain patent. L2-L3: Circumferential disc bulge and a superimposed tiny central disc protrusion with an annular fissure. Thickening of the ligamentum flavumand facet arthropathy. Spinal canal and neural foramen remain patent. L3-L4: Circumferential disc bulge and a superimposed tiny central annular fissure. Thickening of the ligamentum flavum and facet arthropathy. Posterior epidural fat effaces the dorsal thecal sac. There arebilateral facet joint effusions. Spinal canal is mildly narrowed. There is mild bilateral neural foraminal narrowing, left greater than right. L4-L5: Mild disc bulge with thickening of the ligamentum flavum and facet arthropathy. Trace bilateral facet joint effusions. The spinal canalremains patent. Mild right and no significant left neural foraminal narrowing. L5-S1: Circumferential disc bulge and a superimposed tiny central disc protrusion with an annular fissure. Thickening of ligamentum flavum andfacet arthropathy. The spinal canal remains patent. Bilateral neural foramenare also patent. IMPRESSION: 1. Minor lumbar spondylotic changes as described. The spinal canalstenosis is most noticeable at L3-L4 where there is mild narrowing. 2. There is no significant neural foraminal narrowing. 3. Multilevel facet arthropathy is most noticeable from L3-L4 throughL5-S1 on both sides. THIS IS AN ELECTRONICALLY VERIFIED FINAL REPORT 06/10/2019 8:59 AM - Electronically signed by Gerson VILLA T: Report ID: [id number] Reading Location: [place] [address] REPORT ELECTRONICALLY SIGNED IN OTHER VENDOR SYSTEM Sophia Harrison MD IMG MRI PROCEDURES Final Result * B-type natriuretic peptide (06/10/2019 2:39 PM MANAGEMENT SERVICES TECHNICIAN) Pathologist [facility] B-Natriuretic Peptide 50 0 - 100 pg/mL [facility] Comment: B Natriutetic Peptide METHOD: ??Siemens Centaur XP using SUSU. Decision threshold of 100 pg/mL has been demonstrated to provide the maximal combination of sensitivity, specificity, and predictive value for the diagnosis of congestive heart failure (CHF). ??Virtually all patients with no evidence of CHF have BNP values <100 pg/mL. NOTE: ??Nesiritide (Natrecor) interferes with the BNP assay. BNP result will be invalid if drawn within 2 hours of bolus or infusion of nesiritide. 06/10/2019 2:39 PM MANAGEMENT SERVICES TECHNICIAN 06/10/2019 2:43 PM MANAGEMENT SERVICES TECHNICIAN Narrative Resulting Agency Comment IN Pepper Patel MD LAB BLOOD ORDERABLES Final R esult [facility] [address] [place] [address], [facility] [phone] * D-dimer, quantitative (06/10/2019 2:39 PM MANAGEMENT SERVICES TECHNICIAN) Pathologist [facility] D-Dimer, Quantitative <500 <500 ng/mLFEU [facility] Comment: Studies indicate that a D-Dimer level of <500 ng/ml FEU has a >95% negative predictive value for DVT,DIC,PE and other embolus conditions. ??Levels >500 ng/ml FEU may be present in a wide variety of conditions and should not be considered diagnostic of any disease state. Please note unit of measure has changed from ug/ml FEU to ng/ml FEU effective 06/06/19. 06/10/2019 2:39 PM MANAGEMENT SERVICES TECHNICIAN 06/10/2019 2:43 PM MANAGEMENT SERVICES TECHNICIAN Narrative Resulting Agency Comment IN us Pepper Patel MD LAB BLOOD ORDERABLES Final R esult [facility] [address] [place] [address], [facility] [phone] * Hepatitis panel, acute (06/10/2019 10:11 AM MANAGEMENT SERVICES TECHNICIAN) HepBsAg NONREACT NONREACTIVE [facility] Comment: Siemens CentaurXP using SUSU (chemiluminescent immunoassay) technology. NONREACTIVE: IgM antibodies to Hepatitis B Surface antigen not detected. REACTIVE: IgM antibodies to Hepatitis B Surface antigen detected. Reactive results will be confirmed by neutralization testing. HBsAb qn <3.10 mIU/mL [facility] Comment: Siemens CentaurXP using SUSU (chemiluminescent immunoassay) technology. 9.99 IU/L or less.....NONREACTIVE: IgM antibodies to Hepatitis B Surface antibody are not detected. 10.00 IU/L or greater..REACTIVE: IgM antibodies to Hepatitis B Surface antibody are detected. Hep B core IgM NONREACT NONREACTIVE [facility] Comment: Siemens CentaurXP using SUSU (chemiluminescent immunoassay) technology. NONREACTIVE: IgM antibodies to Hepatitis B Core antigen not detected. EQUIVOCAL: IgM antibodies to Hepatitis B Core antigen may or may not be present. Obtain a ??new specimen and retest. REACTIVE: IgM antibodies to Hepatitis B Core antigen detected. Hep A IgM NONREACT NONREACTIVE [facility] Comment: Siemens CentaurXP using SUSU (chemiluminescent immunoassay) technology. NONREACTIVE: IgM antibodies to Hepatitis A not detected. This does not exclude possibility of exposure to Hepatitis A or early acute infection. EQUIVOCAL:IgM antibodies to Hepatitis A may or may not be present. Suggest recollection and retest. REACTIVE: Antibodies to Hepatitis A detected. Hep C Ab NONREACT NONREACTIVE [facility] Comment: Siemens CentaurXP using SUSU (chemiluminescent immunoassay) [...] real-time PCR method. 06/10/2019 10:1 1 AM MANAGEMENT SERVICES TECHNICIAN 06/10/2019 10:47 AM MANAGEMENT SERVICES TECHNICIAN Narrative Resulting Agency Comment IN Destiny Beebe MD LAB MICROBIOLOGY - GENERAL ORDERABLES Final Result Performing Organization Address City/[facility]/ZIP Co de Phone Number [address] [phone] * Ferritin (06/10/2019 10:11 AM MANAGEMENT SERVICES TECHNICIAN) Ferritin 19.0 12.0 - 263.0 ng/mL [facility] Comment: Female: Premenopause ?13.0-150.0 ng/mL Female: Postmenopause ?? 12.0-263.0 ng/mL 06/10/2019 10:1 1 AM MANAGEMENT SERVICES TECHNICIAN 06/10/2019 10:47 AM MANAGEMENT SERVICES TECHNICIAN Narrative Resulting Agency Comment IN Destiny Beebe MD LAB BLOOD ORDERABL ES Final Result Performing Organization Address City/[facility]/ZIP Co de Phone Number [address] [phone] * Iron profile w/ IBC (06/10/2019 10:11 AM MANAGEMENT SERVICES TECHNICIAN) Iron 104 37 - 145 ug/dL [facility] TIBC 368 228 - 428 ug/dL [facility] Transferrin % Sat 28 20 - 50 % [facility] 06/10/2019 10:1 1 AM MANAGEMENT SERVICES TECHNICIAN 06/10/2019 10:47 AM MANAGEMENT SERVICES TECHNICIAN Narrative Resulting Agency Comment IN Destiny Beebe MD LAB BLOOD ORDERABL ES Final Result Performing Organization Address City/[facility] Co de Phone Number [facility] [address] [place] [address], [facility] [phone] * (ABNORMAL) Myoglobin, serum (06/10/2019 10:07 AM MANAGEMENT SERVICES TECHNICIAN) Pathologist [facility] MYOGLOBIN 62(A) 25 - 58 ng/mL [facility] Comment: REFERENCE INTERVAL: Myoglobin Serum Access complete set of age- and/or gender-specific reference intervals for this test in the [facility] ([facility]). Performed by [facility], [address] [place] [address] [email or web address], Tuan Burden MD, Lab. Director 06/10/2019 10:0 7 AM MANAGEMENT SERVICES TECHNICIAN 06/10/2019 3:42 PM MANAGEMENT SERVICES TECHNICIAN Narrative Resulting Agency Comment IN Destiny Beebe MD LAB BLOOD ORDERABL ES Final Result Performing Organization Address City/[facility] Co de Phone Number [facility] [address] [place] [address], [facility] [phone] * (ABNORMAL) Comprehensive metabolic panel (06/10/2019 6:07 AM MANAGEMENT SERVICES TECHNICIAN) Sodium 143 135 - 145 mmol/L [facility] Potassium 4.6 3.3 - 5.1 mmol/L [facility] Chloride 105 96 - 108 mmol/L [facility] Carbon Dioxide 29 22 - 32 mmol/L [facility] Anion Gap 9 7 - 16 [facility] Glucose 111(H) 70 - 100 mg/dL [facility] BUN 23 8 - 25 mg/dL [facility] Creatinine 0.9 0.5 - 1.1 mg/dL [facility] Comment: NOTE: Estimated GFR (Cockroft-Gault) will NOT be calculated unless patient Height and Weight were entered. Also, Kidney Disease Stage (GFR) and Estimated GFR (Cockroft-Gault) will NOT be calculated if Creatinine result is <0.2. Kidney Disease Stage 67 mL/MIN [facility] Comment: NOTE; ??The GFR is an estimated value using the creatinine, sex, age, and race of the patient. THE Estimated Kidney Disease GFR is validated for AGES 18-70 YEARS STAGE ?mL/Min ?DESCRIPTION ??1 ?90 mL/min or more ?Normal or elevated GFR ??2 ? 60-89 mL/min ?Mildly decreased GFR ??3 ? 30-59 mL/min ?Moderately decreased GFR ??4 ? 15-29 mL/min ?Severely decreased GFR ??5 ? <15 mL/min ? Kidney failure or on dialysis Est GFR (Cockcroft-G) 62 ml/MIN [facility] Comment: Estimated GFR(Cockroft-Gault)is used to calculate patient medication dosage Calcium 8.1(L) 8.6 - 10.3 mg/dL [facility] Total Protein 6.1(L) 6.4 - 8.3 g/dL [facility] Albumin 3.5 3.5 - 5.0 g/dL [facility] Globulin 2.6 2.3 - 3.5 gm/dL [facility] Albumin/Globulin Ratio 1.3 1.1 - 1.8 [facility] Total Bilirubin <0.2 0.0 - 1.2 mg/dL [facility] AST 52(H) 0 - 32 U/L [facility] ALT 48(H) 0 - 33 U/L [facility] Alkaline Phosphatase 94 35 - 104 U/L [facility] 06/10/2019 6:07 AM MANAGEMENT SERVICES TECHNICIAN 06/10/2019 7:08 AM MANAGEMENT SERVICES TECHNICIAN Narrative Resulting Agency Comment REGAN us Destiny Beebe MD LAB BLOOD ORDERABL ES Final Result Performing Organization Address City/[facility]/ZIP Co de Phone Number [address] [phone] * (ABNORMAL) Hemoglobin A1c (06/10/2019 6:07 AM MANAGEMENT SERVICES TECHNICIAN) Hemoglobin A1c % 6.2(H) 4.0 - 5.6 % [facility] Comment: ADA 2016 GUIDELINES: ??Initial Diagnostic Criteria ? HbA1c Result: ?Interpretation: ?<5.7% ? Normal ?5.7-6.4% ?At risk for diabetes mellitus ?>=6.5% ?Consistent with diabetes mellitus ??Diabetes monitoring ? Target value (ADA Recommended) ?? <7% 06/10/2019 6:07 AM MANAGEMENT SERVICES TECHNICIAN 06/10/2019 7:08 AM MANAGEMENT SERVICES TECHNICIAN Narrative Resulting Agency Comment REGAN us Linda Smalls NP LAB BLOOD ORDERABLES Final Resul t Performing Organization Address City/[facility]/ZIP Co de Phone Number [address] [phone] * (ABNORMAL) CBC with auto differential (06/10/2019 6:07 AM MANAGEMENT SERVICES TECHNICIAN) Pathologist [facility] WBC 7.9 3.8 - 9.9 X10 3/ul [facility] RBC 3.71(L) 3.90 - 5.20 x10 6/ul [facility] Comment: Results Reviewed Hemoglobin 9.9(L) 11.9 - 15.5 g/dL [facility] Comment: Results Reviewed Hct 33.4(L) 35.6 - 45.5 % [facility] MCV 90.0 81.3 - 96.4 fl [facility] MCH 26.7(L) 27.1 - 33.3 pg [facility] MCHC 29.6(L) 32.3 - 35.7 g/dl [facility] RDW 14.6 11.1 - 14.9 % [facility] Plt Count 175 150 - 400 x10 3/ul [facility] MPV 11.5 9.1 - 12.3 fl [facility] Neut % 52.5 % [facility] Immature Gran % 1.0 % [facility] Lymph % 32.8 % [facility] Thomas % 11.4 % [facility] Eos % 1.9 % [facility] AUTO BASO % 0.4 % [facility] NEUTROPHIL ABS # 4.2 1.7 - 6.5 x10 3/ul [facility] Immature Gran # 0.1 0.0 - 0.1 x10 3/ul [facility] Absolute Lymphs (auto) 2.6 0.8 - 3.3 x10 3/ul [facility] Absolute Monos (auto) 0.9(H) 0.2 - 0.8 x10 3/ul [facility] Absolute Eos (auto) 0.2 0.0 - 0.5 x10 3/ul [facility] BASOPHIL ABS # 0.0 0.0 - 0.1 x10 3/ul [facility] Nucleat RBC Rel Count 0.3 #/100WBC [facility] NRBC abs 0.02(H) 0.00 - 0.01 x10 3/ul [facility] Absolute Neutrophils 4,200 200 - 8,000 /ul [facility] 06/10/2019 6:07 AM MANAGEMENT SERVICES TECHNICIAN 06/10/2019 7:08 AM MANAGEMENT SERVICES TECHNICIAN Narrative Resulting Agency Comment REGAN us Destiny Beebe MD LAB BLOOD ORDERABL ES Final Result [facility] [address] [place], [place] [address] [phone] * MRI Brain WO Contrast (06/10/2019 12:00 AM MANAGEMENT SERVICES TECHNICIAN) Anatomical Region Laterality Modality Head and Neck N/A Magnetic Resonan ce 06/10/2019 3:10 PM MANAGEMENT SERVICES TECHNICIAN Narrative 06/10/2019 3:23 PM MANAGEMENT SERVICES TECHNICIAN Patient Name: CELESTINA ANSARI ?Ordering Dr: Destiny Beebe MD ?? D.O.B: 1950 ? Exam Date: 06/10/19 ?? 0000 ?? Age: 68 ?Sex: Female ? MR#: [id number] ?? Loc: ??S114-02 ? RADIOLOGY REPORT ?? Order #[id number] ?? Magnetic Resonance Imaging ? MRI Brain W/O Contrast ? Signed ?? EXAM DESCRIPTION: ??MRI Brain W/O Contrast ? REASON FOR STUDY: ??Balance issues, multiple falls. ??Left-sided weakness ? TECHNIQUE: ??Multiplanar imaging includes non-contrasted T1, T2, FLAIR, and ?? diffusion with ADC map sequences. Additional sequence(s) sensitive to blood ?? products. Images stored on PACS. ? COMPARISON: ??CT head without contrast dated 06/09/2019, CT face dated ?? 12/18/[address] head without contrast dated 05/11/2007. ? FINDINGS: ? There is a punctate focus of diffusion hyperintensity in the left cerebral ?? theodora (series 303, image 17) is only seen on a single slice and there is no ?? associated T2 hyperintensity. ??Findings are likely an artifact. ? Otherwise, there is no diffusion restriction to suggest acute/recent ?? infarction. ? No intracranial hemorrhage, midline shift or mass effect. ?The diffuse prominence of the ventricles and sulci suggest parenchymal volume ?? loss. No hydrocephalus. The basilar cisterns are preserved. ??Moderate-size ?? encephalomalacia in the posterior right and left cerebellum is again noted. ? An occasional subcortical and periventricular white matter T2/FLAIR ?? hyperintense focus in the bilateral cerebral hemispheres is nonspecific but ?? favored to reflect sequelae of minor chronic microvascular ischemic type ?? change. ? The bilateral globes are symmetric. ??Moderate mucosal thickening in the ?? ethmoid air cells. ? There is an approximately 8-9 mm T1 intermediate sell[place] focus with minimal ?? suprasellar extension but no mass effect on the optic chiasm. ??The findings in ?? retrospect are similar when compared to the previous CT face of 12/18/2017. ? Spondylotic changes in the upper cervical spine. ? IMPRESSION: ? 1. ??There is no convincing acute/recent infarction. ??No intracranial ?? hemorrhage or mass effect. ? 2. ??The 8-9 mm T1 intermediate sellar focus without significant mass effect on ?? the optic chiasm is grossly similar in size in retrospect when compared to the ?? previous CT face of 12/18/2017. ??Please correlate with laboratory data. ??The ?? need for further characterization with nonemergent contrast-enhanced pituitary ?? protocol MRI as clinically indicated. ? 3. ??Additional nonacute findings as described. ? THIS IS AN ELECTRONICALLY VERIFIED FINAL REPORT ?? 06/10/2019 3:23 PM - Electronically signed by Gerson Terrell D.O. ?? Gerson Terrell D.O. ? AP ?? D: ??06/10/2019 3:23 PM ?? T: ? Report ID: [id number] ?? Reading Location: ??[id number] ? REPORT ELECTRONICALLY SIGNED IN OTHER VENDOR SYSTEM ?? Resulting Agency Comment I Procedure Note Gerson Terrell, DO - 06/10/2019 Patient Name: CELESTINA ANSARI Dr: Destiny Beebe MDO.B: 1950 Exam Date: 06/10/19 0000 Age: 68 Sex: Female MR#: [id number] Loc: S1110-25 RADIOLOGY REPORT Order #[id number] Magnetic Resonance Imaging MRI Brain W/O Contrast Signed EXAM DESCRIPTION: MRI Brain W/O Contrast REASON FOR STUDY: Balance issues, multiple falls. Left-sided weakness TECHNIQUE: Multiplanar imaging includes non-contrasted T1, T2, FLAIR,and diffusion with ADC map sequences. Additional sequence(s) sensitive toblood products. Images stored on PACS. COMPARISON: CT head without contrast dated 06/09/2019, CT face dated 12/18/[address] head without contrast dated 05/11/2007. FINDINGS: There is a punctate focus of diffusion hyperintensity in the leftcerebral theodora (series 303, image 17) is only seen on a single slice and there isno associated T2 hyperintensity. Findings are likely an artifact. Otherwise, there is no diffusion restriction to suggest acute/recent infarction. No intracranial hemorrhage, midline shift or mass effect. The diffuse prominence of the ventricles and sulci suggest parenchymalvolume loss. No hydrocephalus. The basilar cisterns are preserved.Moderate-size encephalomalacia in the posterior right and left cerebellum is againnoted. An occasional subcortical and periventricular white matter T2/FLAIR hyperintense focus in the bilateral cerebral hemispheres is nonspecificbut favored to reflect sequelae of minor chronic microvascular ischemic type change. The bilateral globes are symmetric. Moderate mucosal thickening in the ethmoid air cells. There is an approximately 8-9 mm T1 intermediate sellar focus withminimal suprasellar extension but no mass effect on the optic chiasm. Thefindings in retrospect are similar when compared to the previous CT face of12/18/2017. Spondylotic changes in the upper cervical spine. IMPRESSION: 1. There is no convincing acute/recent infarction. No intracranial hemorrhage or mass effect. 2. The 8-9 mm T1 intermediate sellar focus without significant masseffect on the optic chiasm is grossly similar in size in retrospect when comparedto the previous CT face of 12/18/2017. Please correlate with laboratory data.The need for further characterization with nonemergent contrast-enhancedpituitary protocol MRI as clinically indicated. 3. Additional nonacute findings as described. THIS IS AN ELECTRONICALLY VERIFIED FINAL REPORT 06/10/2019 3:23 PM - Electronically signed by Gerson VILLA T: Report ID: [id number] Reading Location: [place] [address] REPORT ELECTRONICALLY SIGNED IN OTHER VENDOR SYSTEM Destiny Beebe MD IM MRI PROCEDURES Final Result * Troponin I (06/09/2019 6:50 PM MANAGEMENT SERVICES TECHNICIAN) Troponin I <0.300 0.000 - 0.300 ng/mL [facility] Comment: Reference using SHANIA Chemiluminescence ? Negative: Repeat in 4-6 hours as indicated. 06/09/2019 6:50 PM MANAGEMENT SERVICES TECHNICIAN 06/09/2019 7:09 PM MANAGEMENT SERVICES TECHNICIAN Narrative Resulting Agency Comment REGAN Destiny Beebe MD LAB BLOOD ORDERABL ES Final Result [address] [phone] * Blood culture Blood (06/09/2019 3:09 PM MANAGEMENT SERVICES TECHNICIAN) [facility] CULTURE BLOOD ADULT (SET OF 2) NO GROWTH DAY 5 [facility] Blood 06/09/2019 3:09 PM MANAGEMENT SERVICES TECHNICIAN 06/09/2019 4:40 PM MANAGEMENT SERVICES TECHNICIAN Destiny Beebe MD LAB MICROBIOLOGY - GENERAL ORDERABLES Final Result Performing Organization Address City/[facility]/ZIP Co de Phone Number [address] [phone] * Blood culture Blood (06/09/2019 3:02 PM MANAGEMENT SERVICES TECHNICIAN) CULTURE BLOOD ADULT (SET OF 2) NO GROWTH DAY 5 [facility] Blood 06/09/2019 3:02 PM MANAGEMENT SERVICES TECHNICIAN 06/09/2019 3:13 PM MANAGEMENT SERVICES TECHNICIAN Destiny Beebe MD LAB MICROBIOLOGY - GENERAL ORDERABLES Final Result Performing Organization Address City/[facility]/ZIP Co de Phone Number [address] [phone] * Troponin I (06/09/2019 3:02 PM MANAGEMENT SERVICES TECHNICIAN) Pathologist [facility] Troponin I <0.300 0.000 - 0.300 ng/mL [facility] Comment: Reference using SHANIA Chemiluminescence ? Negative: Repeat in 4-6 hours as indicated. 06/09/2019 3:02 PM MANAGEMENT SERVICES TECHNICIAN 06/09/2019 3:13 PM MANAGEMENT SERVICES TECHNICIAN Narrative Resulting Agency Comment REGAN Destiny Beebe MD LAB BLOOD ORDERABL ES Final Result Performing Organization Address City/[facility]/ZIP Co de Phone Number [address] [phone] * Creatine kinase (CK), total (06/09/2019 3:02 PM MANAGEMENT SERVICES TECHNICIAN) Pathologist [facility] Creatine Kinase 109 20 - 180 U/L [facility] 06/09/2019 3:02 PM MANAGEMENT SERVICES TECHNICIAN 06/09/2019 3:13 PM MANAGEMENT SERVICES TECHNICIAN Narrative Resulting Agency Comment REGAN Destiny Beebe MD LAB BLOOD ORDERABL ES Final Result Performing Organization Address [facility] Co de Phone Number [address] [phone] * TSH (06/09/2019 9:19 AM MANAGEMENT SERVICES TECHNICIAN) Pathologist [facility] TSH 3.14 0.27 - 4.20 uIU/mL [facility] 06/09/2019 9:19 AM MANAGEMENT SERVICES TECHNICIAN 06/09/2019 9:22 AM MANAGEMENT SERVICES TECHNICIAN Narrative Resulting Agency Comment ER Notinfile Unknown LAB BLOOD ORDERABLES Edited Re sult - Final Performing Organization Address [facility] Co de Phone Number [address] [phone] * Cholesterol, LDL, direct (06/09/2019 9:19 AM MANAGEMENT SERVICES TECHNICIAN) LDL Cholesterol Measurd 87 0 - 129 mg/dL [facility] Comment: National Lipid Association/NCEP Guidelines: ??Optimal ? < 100 mg/dL ??Near Optimal ?100-129 mg/dL ??Borderline high 130-159 mg/dL ??High ?>=160 mg/dL 06/09/2019 9:19 AM MANAGEMENT SERVICES TECHNICIAN 06/09/2019 9:22 AM MANAGEMENT SERVICES TECHNICIAN Narrative Resulting Agency Comment ER us Notinfile Unknown LAB BLOOD ORDERABLES Final Res ult Performing Organization Address [facility]/[place] [address], [facility] [phone] * (ABNORMAL) CK-MB (06/09/2019 9:19 AM MANAGEMENT SERVICES TECHNICIAN) CK-MB (CK-2) 3.2(H) 0.0 - 2.9 ng/mL [facility] 06/09/2019 9:19 AM MANAGEMENT SERVICES TECHNICIAN 06/09/2019 9:22 AM MANAGEMENT SERVICES TECHNICIAN Narrative Resulting Agency Comment ER us Notinfile Unknown LAB BLOOD ORDERABLES Edited Re sult - Final Performing Organization Address [facility] [place] [address], [facility] [phone] * Creatine kinase (CK), total (06/09/2019 9:19 AM MANAGEMENT SERVICES TECHNICIAN) Creatine Kinase 74 20 - 180 U/L [facility] 06/09/2019 9:19 AM MANAGEMENT SERVICES TECHNICIAN 06/09/2019 9:22 AM MANAGEMENT SERVICES TECHNICIAN Narrative Resulting Agency Comment ER us Notinfile Unknown LAB BLOOD ORDERABLES Final Res ult Performing Organization Address [facility] [place] [address], [facility] [phone] * (ABNORMAL) TNI with LIPID PANEL (06/09/2019 9:19 AM MANAGEMENT SERVICES TECHNICIAN) Pathologist [facility] Troponin I <0.300 0.000 - 0.300 ng/mL [facility] Comment: Reference using SHANIA Chemiluminescence ? Negative: Repeat in 4-6 hours as indicated. Triglycerides 269(H) 0 - 149 mg/dL [facility] Comment: LDL(measured) to follow due to Triglycerides >250 mg/dL. National Lipid Association/NCEP Guidelines: ?? Normal ?< 150 mg/dL ?? Borderline high ?? 150-199 mg/dL ?? High ?200-499 mg/dL ?? Very High ? >=500 mg/dL Cholesterol 152 0 - 199 mg/dL [facility] Comment: National Lipid Association/NCEP Guidelines: Desirable ? < 200 mg/dL Borderline high: ??200-239 mg/dL High Risk: ?>=240 mg/dL HDL Cholesterol 36 mg/dL [facility] Comment: Reference Ranges: ? Males: >=40 mg/dL ? Females: >=50 mg/dL Cholesterol/HDL Ratio 4.2 [facility] Comment: Optimal ??< 3.5:1 High ? > 5:1 06/09/2019 9:19 AM MANAGEMENT SERVICES TECHNICIAN 06/09/2019 9:22 AM MANAGEMENT SERVICES TECHNICIAN Narrative Resulting Agency Comment ER us Notinfile Unknown LAB BLOOD ORDERABLES Final Res ult [facility] [address] [place] [address], [facility] [phone] * (ABNORMAL) Comprehensive metabolic panel (06/09/2019 9:19 AM MANAGEMENT SERVICES TECHNICIAN) Pathologist [facility] Sodium 144 135 - 145 mmol/L [facility] Potassium 4.9 3.3 - 5.1 mmol/L [facility] Chloride 105 96 - 108 mmol/L [facility] Carbon Dioxide 28 22 - 32 mmol/L [facility] Anion Gap 11 7 - 16 [facility] Glucose 117(H) 70 - 100 mg/dL [facility] BUN 28(H) 8 - 25 mg/dL [facility] Creatinine 0.9 0.5 - 1.1 mg/dL [facility] Comment: NOTE: Estimated GFR (Cockroft-Gault) will NOT be calculated unless patient Height and Weight were entered. Also, Kidney Disease Stage (GFR) and Estimated GFR (Cockroft-Gault) will NOT be calculated if Creatinine result is <0.2. Kidney Disease Stage 67 mL/MIN [facility] Comment: NOTE; ??The GFR is an estimated value using the creatinine, sex, age, and race of the patient. THE Estimated Kidney Disease GFR is validated for AGES 18-70 YEARS STAGE ?mL/Min ?DESCRIPTION ??1 ?90 mL/min or more ?Normal or elevated GFR ??2 ? 60-89 mL/min ?Mildly decreased GFR ??3 ? 30-59 mL/min ?Moderately decreased GFR ??4 ? 15-29 mL/min ?Severely decreased GFR ??5 ? <15 mL/min ? Kidney failure or on dialysis Est GFR (Cockcroft-G) 73 ml/MIN [facility] Comment: Estimated GFR(Cockroft-Gault)is used to calculate patient medication dosage Calcium 8.9 8.6 - 10.3 mg/dL [facility] Total Protein 6.8 6.4 - 8.3 g/dL [facility] Albumin 3.8 3.5 - 5.0 g/dL [facility] Globulin 3.0 2.3 - 3.5 gm/dL [facility] Albumin/Globulin Ratio 1.3 1.1 - 1.8 [facility] Total Bilirubin <0.2 0.0 - 1.2 mg/dL [facility] AST 52(H) 0 - 32 U/L [facility] ALT 48(H) 0 - 33 U/L [facility] Alkaline Phosphatase 96 35 - 104 U/L [facility] 06/09/2019 9:19 AM MANAGEMENT SERVICES TECHNICIAN 06/09/2019 9:22 AM MANAGEMENT SERVICES TECHNICIAN Narrative Resulting Agency Comment ER us Notinfile Unknown LAB BLOOD ORDERABLES Edited Lashonda wood - Final Performing Organization Address [facility]/ZIP Co de Phone Number [facility] [address] [phone] * (ABNORMAL) Myoglobin, serum (06/09/2019 8:22 AM MANAGEMENT SERVICES TECHNICIAN) MYOGLOBIN 68(A) 25 - 58 ng/mL [facility] Comment: REFERENCE INTERVAL: Myoglobin Serum Access complete set of age- and/or gender-specific reference intervals for this test in the [facility] ([facility]). Performed by [facility], [address] [place] [address] [email or web address], Tuan Burden MD, Lab. Director 06/09/2019 8:2 2 AM MANAGEMENT SERVICES TECHNICIAN 06/09/2019 8:25 AM MANAGEMENT SERVICES TECHNICIAN Narrative Resulting Agency Comment IN us Wanda Bond SECOND GRADE TEACHER LAB BLOOD ORDERABLES Ellyn l Result [facility] [address] [place] [address], [facility] [phone] * (ABNORMAL) CBC with auto differential (06/09/2019 8:22 AM MANAGEMENT SERVICES TECHNICIAN) WBC 6.9 3.8 - 9.9 X10 3/ul [facility] RBC 4.52 3.90 - 5.20 x10 6/ul [facility] Hemoglobin 12.3 11.9 - 15.5 g/dL [facility] Hct 40.9 35.6 - 45.5 % [facility] MCV 90.5 81.3 - 96.4 fl [facility] MCH 27.2 27.1 - 33.3 pg [facility] MCHC 30.1(L) 32.3 - 35.7 g/dl [facility] RDW 14.6 11.1 - 14.9 % [facility] Plt Count 209 150 - 400 x10 3/ul [facility] MPV 11.1 9.1 - 12.3 fl [facility] Neut % 50.1 % [facility] Immature Gran % 1.3 % [facility] Lymph % 34.3 % [facility] Thomas % 10.6 % [facility] Eos % 3.1 % [facility] AUTO BASO % 0.6 % [facility] NEUTROPHIL ABS # 3.4 1.7 - 6.5 x10 3/ul [facility] Immature Gran # 0.1 0.0 - 0.1 x10 3/ul [facility] Absolute Lymphs (auto) 2.4 0.8 - 3.3 x10 3/ul [facility] Absolute Monos (auto) 0.7 0.2 - 0.8 x10 3/ul [facility] Absolute Eos (auto) 0.2 0.0 - 0.5 x10 3/ul [facility] BASOPHIL ABS # 0.0 0.0 - 0.1 x10 3/ul [facility] Nucleat RBC Rel Count 0.0 #/100WBC [facility] NRBC abs 0.00 0.00 - 0.01 x10 3/ul [facility] Absolute Neutrophils 3,400 200 - 8,000 /ul [facility] 06/09/2019 8:22 AM MANAGEMENT SERVICES TECHNICIAN 06/09/2019 8:25 AM MANAGEMENT SERVICES TECHNICIAN Narrative Resulting Agency Comment ER Wanda Bond SECOND GRADE TEACHER LAB BLOOD ORDERABLES Ellyn l Result [facility] [address] [place] [address], [facility] [phone] * Drugs of Abuse Screen, Urine without Confirmation (06/09/2019 8:13 AM MANAGEMENT SERVICES TECHNICIAN) Pathologist [facility] Amphetamines NOT DETECTED [facility] Comment: This assay uses 500 ng/mL as a cutoff for a positive result. Barbiturates DETECTED [facility] Comment: This assay uses 200 ng/mL as a cutoff for a positive result. Urine Fentanyl NOT DETECTED [facility] Comment: This assay uses 1 ng/mL as a cutoff for a positive result. Benzodiazepines NOT DETECTED [facility] Comment: This assay uses 100 ng/mL as a cutoff for a positive result. Cannabinoids NOT DETECTED [facility] Comment: This assay uses 50 ng/mL as a cutoff for a positive result. Cocaine NOT DETECTED [facility] Comment: This assay uses 150 ng/mL as a cutoff for a positive result. Opiates NOT DETECTED [facility] Comment: This assay uses 300 ng/mL as a cutoff for a positive result. Urine methadone NOT DETECTED [facility] Comment: This assay uses 300 ng/mL as a cutoff for a positive result. Urine phencyclidine plus NOT DETECTED [facility] Comment: This assay uses 25 ng/mL as a cutoff for a positive result. Oxycodone NOT DETECTED [facility] Comment: This assay uses 100 ng/mL as a cutoff for a positive result. Urine Creatinine/MARLO 30.0 mg/dL [facility] Comment: If Creatinine is < 40 mg/dL, recollection is suggested. 06/09/2019 8:13 AM MANAGEMENT SERVICES TECHNICIAN 06/09/2019 8:16 AM MANAGEMENT SERVICES TECHNICIAN Narrative [facility] - 06/09/2019 8:54 AM MANAGEMENT SERVICES TECHNICIAN Collected By PB Resulting Agency Comment ER us Wanda Bond SECOND GRADE TEACHER LAB URINE ORDERABLES Ellyn bryan Result [facility] [address] [place] [address], [facility] [phone] * URINALYSIS, COMPLETE W/REFLEX TO CULTURE (06/09/2019 8:13 AM MANAGEMENT SERVICES TECHNICIAN) Ur Collection Type CLEAN CATCH [facility] Ur Culture Indicated? C S NOT INDICATED [facility] Urine Color YELLOW YELLOW [facility] Urine Clarity Slightly-Heidy udy CLEAR [facility] Urine Glucose (UA) NORMAL NORMAL mg/dL [facility] Urine Bilirubin NEGATIVE NEGATIVE mg/dl [facility] Urine Ketones NEGATIVE NEGATIVE mg/dL [facility] Ur Specific [place] 1.005 1.005 - 1.025 [facility] Urine Blood NEGATIVE NEGATIVE mg/dl [facility] Urine pH 6.0 5.0 - 8.0 [facility] Urine Protein NEGATIVE NEGATIVE mg/dL [facility] Urine Urobilinogen NORMAL NORMAL mg/dL [facility] Urine Nitrite NEGATIVE NEGATIVE [facility] Ur Leukocyte Esterase NEGATIVE NEGATIVE Lizeth/ul [facility] Ur Microscopic Review Indicated or Ordered [facility] Urine RBC 1 0 - 2 /HPF [facility] Urine WBC 1 0 - 2 /HPF [facility] Urine Bacteria Few /HPF [facility] Ur Squamous Epith Cells Rare /HPF [facility] 06/09/2019 8:13 AM MANAGEMENT SERVICES TECHNICIAN 06/09/2019 8:16 AM MANAGEMENT SERVICES TECHNICIAN Narrative [facility] - 06/09/2019 8:26 AM MANAGEMENT SERVICES TECHNICIAN Indication(s) for ordering ?? Delirium/malaise/lethargy PB Clean catch Resulting Agency Comment ER Wanda Bond SECOND GRADE TEACHER LAB URINE ORDERABLES Ellyn l Result Performing Organization Address City/[facility]/ZIP Co de Phone Number [address] [phone] * ECG 12 lead (06/09/2019 7:03 AM MANAGEMENT SERVICES TECHNICIAN) Ventricular Rate EKG/Min 93 BPM [facility] Atrial Rate 93 BPM [facility]-Interval (MSEC) 176 ms [facility] QRS-Interval (MSEC) 86 ms [facility] QT-Interval (MSEC) 360 ms [facility] QTc 448 ms [facility] P [place] 53 degrees [facility] R [place] -23 degrees [facility] T [place] 59 degrees [facility] Diagnosis Normal sinus rhythm Voltage criteria for left ventricular hypertrophy Abnormal ECG When compared with ECG of 07-JUN-2019 04:33 ST no longer elevated in high lateral leads [facility] 06/09/2019 7:03 AM MANAGEMENT SERVICES TECHNICIAN 06/09/2019 11:18 AM MANAGEMENT SERVICES TECHNICIAN Narrative Resulting Agency Comment ANTOINETTE us Notinfile Unknown ECG ORDERABLES Edited Performing Organization Address [facility] Co de Phone Number [address] * US Carotids Duplex Bilateral (06/09/2019 12:00 AM MANAGEMENT SERVICES TECHNICIAN) Anatomical Region Laterality Modality Vascular Bilateral Ultrasound 06/11/2019 12:4 9 PM MANAGEMENT SERVICES TECHNICIAN Narrative 06/11/2019 4:11 PM MANAGEMENT SERVICES TECHNICIAN ? Patient Name: CELESTINA ANSARI ? MR#: [id number] ?? [id number] ? Status: ADM IN ?D.O.B: 1950 Age: ??68 ?Sex: Female ? ADM/SER Dt: 06/10/19 ?Disch Dt: ? LOC: H.1S ? Ordering [place]: Destiny Beebe MD ? Order #[id number] ? Carotid Ultrasound Bilateral ?? Efren Gaines MD ? Signed ?? DATE OF SERVICE: ?? 06/10/2019 ? REASON FOR EXAM: ??Syncope. ? FINDINGS: ? COMMENTS ON THE RIGHT: ??Peak systolic velocity in the CCA of 96, ICA 109. ??Irregular, heterogenous plaque seen in the proximal ICA. ??ECA a velocity of 178. ??Right vertebral artery not visualized. ? COMMENTS ON THE LEFT: ??Peak systolic velocity in the CCA of 97. ??ICA of 65. ??Smooth heterogenous plaque seen in the proximal ICA. ??ECA a velocity of 223. ??Left vertebral artery not visualized. ? OVERALL IMPRESSION: ??A 16-49% stenosis right internal carotid artery with 1-15% stenosis noted on the left. ??Vertebral artery is not visualized. ? NTS ? Job: [id number] ? Dictated By: Efren Gaines MD ?? Dictated For: Efren ??MD Eder ? <Electronically signed by Efren Gaines MD> ? 06/11/19 1540 ?? Resulting Agency Comment I Procedure Note Efren Gaines MD - 06/11/2019 Patient Name: CELESTINA ANSARI #: [id number] Status: ADM IN D.O.B: 1950 Age: 68Sex: Female ADM/SER Dt: 06/10/19 Disch Dt:LOC: H.1S Ordering Phy: Destiny Beebe MD Order #[id number] Carotid Ultrasound Bilateral Efren Gaines MD Signed DATE OF SERVICE: 06/10/2019 REASON FOR EXAM: Syncope. FINDINGS: COMMENTS ON THE RIGHT: Peak systolic velocity in the CCA of 96, ICA 109.Irregular, heterogenous plaque seen in the proximal ICA. ECA a velocity of 178. Right vertebralartery not visualized. COMMENTS ON THE LEFT: Peak systolic velocity in the CCA of 97. ICA of65. Smooth heterogenous plaque seen in the proximal ICA. ECA a velocity of 223. Left vertebralartery not visualized. OVERALL IMPRESSION: A 16-49% stenosis right internal carotid artery with1-15% stenosis noted on the left. Vertebral artery is not visualized. NTS Job: [id number] Dictated By: Efren Gaines MD Dictated For: Efren Gaines MD <Electronically signed by Efren Gaines MD> 06/11/19 1540 us Destiny Beebe MD IMG US PROCEDURES Final Result * CT Cervical Spine WO Contrast (06/09/2019 12:00 AM MANAGEMENT SERVICES TECHNICIAN) Anatomical Region Laterality Modality Spine N/A Computed Tomogra phy 06/09/2019 8:19 AM MANAGEMENT SERVICES TECHNICIAN Narrative 06/09/2019 8:30 AM MANAGEMENT SERVICES TECHNICIAN Patient Name: CELESTINA ANSARI ?Ordering Dr: Wanda Sanchez WEDDING MAKEUP ARTIST ?? D.O.B: 1950 ? Exam Date: 06/09/19 ?? 0000 ?? Age: 68 ?Sex: Female ? MR#: [id number] ?? Loc: ? RADIOLOGY REPORT ?? Order #[id number] ?? CT Scan ? CT C-Spine WO IV Contrast ? Signed ?? EXAM DESCRIPTION: ??CT C-Spine WO IV Contrast ? REASON FOR STUDY: ??Brought to ED via EMS stretcher. Pt reports fall sometime ?? yesterday. Unknown reason for fall. States she was just on the floor for ?? unknown amount of time. Reports chronic back pain and takes meds regularly. ?? States only pain from fall is in back. Pt alert no signs of acute distress. No ?? visible signs of injury noted. ? TECHNIQUE: ??Axial images through the cervical spine with sagittal and coronal ?? reformatted images. Automated exposure control was used as a dose optimization ?? technique for this examination. ? COMPARISON: ??None available ? FINDINGS: ? ALIGNMENT: Facet joints appear aligned. ??There is customary cervical lordosis. ?Grade 1 anterolisthesis of C3 on C4 measures 0.2 cm. ??Facet joints are ?? aligned at that level and demonstrate mild osteoarthritis. ? VERTEBRAE: Craniocervical junction is intact. ??Odontoid process is intact. ? DISCS: Mild-moderate intervertebral disc height loss is noted. ??Mild-moderate ?? marginal osteophyte formation is present. ? HARDWARE: None in the spine. ? INDIVIDUAL DISC LEVELS: Mild bilateral osseous neural foraminal stenosis at ?? C5-C6 is present. ? LUNG APICES: No significant abnormality. ? NECK SOFT TISSUES: No significant abnormality. ? OTHER: No other significant findings. ? IMPRESSION: ??Mild-moderate osteoarthritis of the cervical spine. ? No evidence of cervical spine fracture. ? THIS IS AN ELECTRONICALLY VERIFIED FINAL REPORT ?? 06/09/2019 8:30 AM - Electronically signed by Tor Byrnes M.D. ?? Tor Byrnes M.D. ? AT ?? D: ??06/09/2019 8:30 AM ?? T: ? Report ID: [id number] ?? Reading Location: ??[id number] ? REPORT ELECTRONICALLY SIGNED IN OTHER VENDOR SYSTEM ?? Resulting Agency Comment E Procedure Note Tor Byrnes MD - 06/09/2019 Patient Name: CELESTINA ANSARI Dr: Wanda Sanchez CNP, D.O.B: 1950 Exam Date: 06/09/19 0000 Age: 68 Sex: Female MR#: [id number] Loc: RADIOLOGY REPORT Order #[id number] CT Scan CT C-Spine WO IV Contrast Signed EXAM DESCRIPTION: CT C-Spine WO IV Contrast REASON FOR STUDY: Brought to ED via EMS stretcher. Pt reports fallsometime yesterday. Unknown reason for fall. States she was just on the floor for unknown amount of time. Reports chronic back pain and takes medsregularly. States only pain from fall is in back. Pt alert no signs of acutedistress. No visible signs of injury noted. TECHNIQUE: Axial images through the cervical spine with sagittal andcoronal reformatted images. Automated exposure control was used as a doseoptimization technique for this examination. COMPARISON: None available FINDINGS: ALIGNMENT: Facet joints appear aligned. There is customary cervicallordosis. Grade 1 anterolisthesis of C3 on C4 measures 0.2 cm. Facet joints are aligned at that level and demonstrate mild osteoarthritis. VERTEBRAE: Craniocervical junction is intact. Odontoid process isintact. DISCS: Mild-moderate intervertebral disc height loss is noted.Mild-moderate marginal osteophyte formation is present. HARDWARE: None in the spine. INDIVIDUAL DISC LEVELS: Mild bilateral osseous neural foraminal stenosisat C5-C6 is present. LUNG APICES: No significant abnormality. NECK SOFT TISSUES: No significant abnormality. OTHER: No other significant findings. IMPRESSION: Mild-moderate osteoarthritis of the cervical spine. No evidence of cervical spine fracture. THIS IS AN ELECTRONICALLY VERIFIED FINAL REPORT 06/09/2019 8:30 AM - Electronically signed by Tor Byrnes M.D. AT T: Report ID: [id number] Reading Location: [place] [address] REPORT ELECTRONICALLY SIGNED IN OTHER VENDOR SYSTEM us Wanda Bond SECOND GRADE TEACHER IMG CT PROCEDURES Final R esult * XR Chest 1 View (06/09/2019 12:00 AM MANAGEMENT SERVICES TECHNICIAN) Anatomical Region Laterality Modality Body, Chest N/A Radiographic Meera ging 06/09/2019 8:24 AM MANAGEMENT SERVICES TECHNICIAN Narrative 06/09/2019 8:26 AM MANAGEMENT SERVICES TECHNICIAN Patient Name: CELESTINA ANSARI ?Ordering Dr: Wanda Sanchez W[employer]DING MAKEUP ARTIST ?? D.O.B: 1950 ? Exam Date: 06/09/19 ?? 0000 ?? Age: 68 ?Sex: Female ? MR#: [id number] ?? Loc: ? RADIOLOGY REPORT ?? Order #[id number] ?? Radiology ? Chest 1 View ? Signed ?? EXAM DESCRIPTION: ??Chest 1 View ? REASON FOR STUDY: ??PT STATES SHE FELL THIS MORNING, HAS POSTERIOR CHEST WALL ?? PAIN STATES SHE FALLS ALOT ? TECHNIQUE: ??Frontal radiographic view of the chest acquired. ? COMPARISON: ??11/16/2017 ? FINDINGS: ? LUNGS/PLEURA: No focal consolidation or pneumothorax. No pleural effusion. ? HEART/MEDIASTINUM: Heart size is normal. ??Atheromatous disease of the aorta is ?? present. ??Normal mediastinal and hilar contours. ? HARDWARE/LINES/TUBES: None. ? BONES: No acute findings. ? OTHER: No other significant finding. ? IMPRESSION: ??No acute cardiopulmonary disease. ? THIS IS AN ELECTRONICALLY VERIFIED FINAL REPORT ?? 06/09/2019 8:26 AM - Electronically signed by Jairo Barnes M.D. ?? Jairo Barnes M.D. ? [place] ?? D: ??06/09/2019 8:26 AM ?? T: ? Report ID: [id number] ?? Reading Location: ??[id number] ? REPORT ELECTRONICALLY SIGNED IN OTHER VENDOR SYSTEM ?? Resulting Agency Comment E Procedure Note Jairo Barnes MD - 06/09/2019 Patient Name: CELESTINA ANSARI Dr: Wanda Sanchez CNP, D.O.B: 1950 Exam Date: 06/09/19 0000 Age: 68 Sex: Female MR#: [id number] Loc: RADIOLOGY REPORT Order #[id number] Radiology Chest 1 View Signed EXAM DESCRIPTION: Chest 1 View REASON FOR STUDY: PT STATES SHE FELL THIS MORNING, HAS POSTERIOR CHESTWALL PAIN STATES SHE FALLS ALOT TECHNIQUE: Frontal radiographic view of the chest acquired. COMPARISON: 11/16/2017 FINDINGS: LUNGS/PLEURA: No focal consolidation or pneumothorax. No pleuraleffusion. HEART/MEDIASTINUM: Heart size is normal. Atheromatous disease of theaorta is present. Normal mediastinal and hilar contours. HARDWARE/LINES/TUBES: None. BONES: No acute findings. OTHER: No other significant finding. IMPRESSION: No acute cardiopulmonary disease. THIS IS AN ELECTRONICALLY VERIFIED FINAL REPORT 06/09/2019 8:26 AM - Electronically signed by Jairo NARANJO T: Report ID: [id number] Reading Location: [place] [address] REPORT ELECTRONICALLY SIGNED IN OTHER VENDOR SYSTEM Wanda Bond NP IMG XR PROCEDURES Final R esult * CT Head WO Contrast (06/09/2019 12:00 AM MANAGEMENT SERVICES TECHNICIAN) Anatomical Region Laterality Modality Head and Neck N/A Computed Tomogra phy 06/09/2019 8:23 AM MANAGEMENT SERVICES TECHNICIAN Narrative 06/09/2019 8:24 AM MANAGEMENT SERVICES TECHNICIAN Patient Name: CELESTINA ANSARI ?Ordering Dr: Wanda Sanchez WEDDING MAKEUP ARTIST ?? D.O.B: 1950 ? Exam Date: 11/15/19 ?? 0000 ?? Age: 68 ?Sex: Female ? MR#: [id number] ?? Loc: ? RADIOLOGY REPORT ?? Order #[id number] ?? CT Scan ? CT Head WO IV Contrast ? Signed ?? EXAM DESCRIPTION: ??CT Head WO IV Contrast ? REASON FOR STUDY: ??Brought to ED via EMS stretcher. Pt reports fall sometime ?? yesterday. Unknown reason for fall. States she was just on the floor for ?? unknown amount of time. Reports chronic back pain and takes meds regularly. ?? States only pain from fall is in back. Pt alert no signs of acute distress. No ?? visible signs of injury noted. ? TECHNIQUE: ??Axial images acquired through the brain without intravenous ?? contrast. ??Images stored on PACS. ?? Automated exposure control was used as a ?? dose optimization technique for this examination. ? COMPARISON: ??None available ? FINDINGS: ?CEREBRUM: No hemorrhage, edema or mass effect. No recent infarct. ? WHITE MATTER: Small-vessel ischemic changes are noted. ? POSTERIOR FOSSA: No masses. No hemorrhage. No evidence for acute infarction. ? EXTRA-AXIAL SPACES: No fluid collections. No masses. ? BRAIN VOLUME: There is volume loss. ? ORBITS: No intra- or extraconal masses. Normal appearing globes. ? CALVARIUM: No fracture. ? PARANASAL SINUSES AND MASTOIDS: No fluid or mucosal thickening. ? OTHER: No other significant abnormality. ? IMPRESSION: ??No acute intracranial process. ??Small-vessel ischemic changes. ? THIS IS AN ELECTRONICALLY VERIFIED FINAL REPORT ?? 06/09/2019 8:24 AM - Electronically signed by Jairo Barnes M.D. ?? Jairo Barnes M.D. ? [place] ?? D: ??06/09/2019 8:24 AM ?? T: ? Report ID: [id number] ?? Reading Location: ??[id number] ? REPORT ELECTRONICALLY SIGNED IN OTHER VENDOR SYSTEM ?? Resulting Agency Comment E Procedure Note Jairo Barnes MD - 06/09/2019 Patient Name: CELESTINA ANSARI Nishizeferino Dr: Wanda Sanchez CNP, D.O.B: 1950 Exam Date: 06/09/19 0000 Age: 68 Sex: Female MR#: [id number] Loc: RADIOLOGY REPORT Order #[id number] CT Scan CT Head WO IV Contrast Signed EXAM DESCRIPTION: CT Head WO IV Contrast REASON FOR STUDY: Brought to ED via EMS stretcher. Pt reports fallsometime yesterday. Unknown reason for fall. States she was just on the floor for unknown amount of time. Reports chronic back pain and takes medsregularly. States only pain from fall is in back. Pt alert no signs of acutedistress. No visible signs of injury noted. TECHNIQUE: Axial images acquired through the brain without intravenous contrast. Images stored on PACS. Automated exposure control was usedas a dose optimization technique for this examination. COMPARISON: None available FINDINGS: CEREBRUM: No hemorrhage, edema or mass effect. No recent infarct. WHITE MATTER: Small-vessel ischemic changes are noted. POSTERIOR FOSSA: No masses. No hemorrhage. No evidence for acuteinfarction. EXTRA-AXIAL SPACES: No fluid collections. No masses. BRAIN VOLUME: There is volume loss. ORBITS: No intra- or extraconal masses. Normal appearing globes. CALVARIUM: No fracture. PARANASAL SINUSES AND MASTOIDS: No fluid or mucosal thickening. OTHER: No other significant abnormality. IMPRESSION: No acute intracranial process. Small-vessel ischemicchanges. THIS IS AN ELECTRONICALLY VERIFIED FINAL REPORT 06/09/2019 8:24 AM - Electronically signed by Jairo NARANJO T: Report ID: [id number] Reading Location: [place] [address] REPORT ELECTRONICALLY SIGNED IN OTHER VENDOR SYSTEM us Wanda Bond NP IMG CT PROCEDURES Final R esult * XR Spine Lumbar 2 or 3 Views (06/09/2019 12:00 AM MANAGEMENT SERVICES TECHNICIAN) Anatomical Region Laterality Modality Spine N/A Radiographic Meera ging 06/09/2019 8:21 AM MANAGEMENT SERVICES TECHNICIAN Narrative 06/09/2019 8:22 AM MANAGEMENT SERVICES TECHNICIAN Patient Name: CELESTINA ANSARI ?Ordering Dr: Wanda Sanchez WEDDING MAKEUP ARTIST ?? D.O.B: 1950 ? Exam Date: 06/09/19 ?? 0000 ?? Age: 68 ?Sex: Female ? MR#: [id number] ?? Loc: ? RADIOLOGY REPORT ?? Order #[id number] ?? Radiology ? Lumbar Spine 2 or 3 View ? Signed ?? EXAM DESCRIPTION: ??Lumbar Spine 2 or 3 View ? REASON FOR STUDY: ??STATES SHE FELL THIS MORNING, HAS LOWER BACK PAIN, UNABLE ?? TO MOVE SELF, LAT PERFORMED X-TABLE ? TECHNIQUE: ??Three radiographic views acquired of the lumbar spine. ? COMPARISON: ??None ? FINDINGS: ? There is mild lumbar spondylosis is present. ??Atheromatous disease of the ?? aorta. ??No compression deformity present. ? IMPRESSION: ??Mild lumbar spondylosis without acute process ? THIS IS AN ELECTRONICALLY VERIFIED FINAL REPORT ?? 06/09/2019 8:22 AM - Electronically signed by Jairo Barnes M.D. ?? Jairo Barnes M.D. ? [place] ?? D: ??06/09/2019 8:22 AM ?? T: ? Report ID: [id number] ?? Reading Location: ??[id number] ? REPORT ELECTRONICALLY SIGNED IN OTHER VENDOR SYSTEM ?? Resulting Agency Comment E Procedure Note Jairo Barnes MD - 06/09/2019 Patient Name: GILDARDOCELESTINA Mendoza Dr: Wanda Sanchez CNPO.B: 1950 Exam Date: 06/09/19 0000 Age: 68 Sex: Female MR#: [id number] Loc: RADIOLOGY REPORT Order #[id number] Radiology Lumbar Spine 2 or 3 View Signed EXAM DESCRIPTION: Lumbar Spine 2 or 3 View REASON FOR STUDY: STATES SHE FELL THIS MORNING, HAS LOWER BACK PAIN,UNABLE TO MOVE SELF, LAT PERFORMED X-TABLE TECHNIQUE: Three radiographic views acquired of the lumbar spine. COMPARISON: None FINDINGS: There is mild lumbar spondylosis is present. Atheromatous disease of the aorta. No compression deformity present. IMPRESSION: Mild lumbar spondylosis without acute process THIS IS AN ELECTRONICALLY VERIFIED FINAL REPORT 06/09/2019 8:22 AM - Electronically signed by Jairo NARANJO T: Report ID: [id number] Reading Location: [place] [address] REPORT ELECTRONICALLY SIGNED IN OTHER VENDOR SYSTEM Wanda Bond SECOND GRADE TEACHER IMG XR PROCEDURES Final R esult documented in this encounter Visit Diagnoses Not on filedocumented in this encounter Care Teams Automatic Packer Operator Relationship Specialty Start Date End Date Hernando Velasquez MD [address] [place] [address] PCP - General 12/23/18 06/13/19 Bernardo Edwards MD [address] [place] [id number] PCP - General 06/14/19 07/04/20 documented as of this encounter
--- OUTSIDE RECORDS SUMMARY | 2024-08-13 05:03 | XMS_ITS | Encounter Summary ---
Author Organization [facility] Home Care Servic es Address [address] [place] [address] Phone Care Team Providers Care Director Of Culture Name Role Phone Bernardo Edwards MD Primary Care Provider [phone] Reason for Visit * Auth/Cert Specialty Diagnoses / Procedures Referred By Kesha diggs Referred To Contact Referral ID Status Reason Start Date Expiration Date Visits Re quested Visits Authorized [id number] 1 1 Encounter Details Date Type Department Care Team (Latest Contact Info) Description 06/16/2019 10:00 AM AUTOMATIC OPERATOR Home Care Visit [facility] [address] [place] [address] Corine Felix, PT PT INITIAL EVALUATION Social History Tobacco Use Types Packs/Day Years Used Date Smoking Tobacco: Never Assessed Comments Unknown Sex and Gender Information Value Date Recorded Sex Assigned at Not on file Legal Sex Female 10:28 AM CDT Gender Identity Female 01/30/2020 10:55 AM CDT Sexual Orientation Not on file documented as of this encounter Last Filed Vital Signs Vital Sign Reading Time Taken Comments Blood Pressure 120/78 06/16/2019 10:27 AM AUTOMATIC OPERATOR Pulse 84 06/16/2019 10:27 AM AUTOMATIC OPERATOR Temperature 36.9 ??C (98.4 ??F) 06/16/2019 10:[address] Respiratory Rate 18 06/16/2019 10:27 AM AUTOMATIC OPERATOR Oxygen Saturation 93% 06/16/2019 10:27 AM AUTOMATIC OPERATOR Inhaled Oxygen Concentration - - Weight - - Height - - Body Mass Index - - documented in this encounter Plan of Treatment Not on file documented as of this encounter Visit Diagnoses Not on filedocumented in this encounter Home Health Visit - Care Plan Visit Details Visit Type -PT Initial Evalu ation Discipline -Physical Therapy Problems Problem Description Start Date Status Goals Interve ntions PT Impaired Functional Mobility/Balance Disciplines: Physical Therapy Impaired functional mobility/balance 06/16/2019 Active - 5 problem interventions scheduled/documen jeannie in this visit Homebound Status Disciplines: Detention, Physical Therapy, Occupational Therapy 06/15/2019 Active 1 goal linked to scheduled/docume nted intervention 1 goal intervention scheduled/documen jeannie in this visit Monitor patient's vital signs every home health visit Disciplines: Detention, Physical Therapy, Occupational Therapy 06/15/2019 Active 1 goal linked to scheduled/docume nted intervention 1 goal intervention scheduled/documen jeannie in this visit Goals Goal Associated Problem Outcome Goal Met? Visit Notes Patient recieves care at the most appropriate care setting Homebound Status No Measure vital signs during every home health visit during episode of care Monitor patient's vital signs every home health visit No Interventions Intervention Associated Problem/Goal Status Variance Visit Notes Transfer training Description: Instruct patient/caregiver and perform transfer training. Problem:PT Impaired Functional Mobility/Balance Completed Gait/Stair Training Description: Instruct patient/caregiver and perform gait/stair training. Problem:PT Impaired Functional Mobility/Balance Completed Balance Training/Activities Description: Instruct patient/caregiver and perform balance training activities. Problem:PT Impaired Functional Mobility/Balance Completed Assistive Devices/DME Description: Recommend and assist with obtaining assistive devices/DME. Problem:PT Impaired Functional Mobility/Balance Completed Therapeutic Exercise Description: Perform therapeutic exercise, progressing as tolerated. Problem:PT Impaired Functional Mobility/Balance Completed Homebound Status Problem:Homebound Status Goal:Patient recieves care at the most appropriate care setting Scheduled Monitor Vital Signs Problem:Monitor patient's vital signs every home health visit Goal:Measure vital signs during every home health visit during episode of care Scheduled documented in this encounter Home Health Visit - Actions and Narratives Actions Patient has suffered 4 falls in the last month with unknown cause of 3 falls and last fall 06/09/19. Pt is reports one fall was due to picking pen up from her rolling office chair and wheels sliding out from under her. Patient presented to the ER 06/09/19 s/p fall with increased low back pain and released 06/14/19 with PRN use of back brace when OOB. Patient's PLOF was I with ambulation with use of single point cane, I with transfers and bed mobility. Friend assisted with needs and pt has caregiver PRN. Patient presents with decreased strength with L LE more limited, decreased balance, decreased endurance, unsteady gait, and increased low back pain limiting mobility requiring use of FWW and placing patient at increased risk of falls. Pt would benefit from skilled PT to address deficits listed above to return to PLOF, decrease fall risk, and improve functional mobility. Patient to be seen 1- 2x week for 6 weeks. documented in this encounter Care Teams Director Of Culture Relationship Specialty Start Date End Date Bernardo Edwards MD [address] [place] [address] PCP - General 06/14/19 07/04/20 documented as of this encounter
--- OUTSIDE RECORDS SUMMARY | 2024-08-13 05:03 | XMS_ITS | Encounter Summary ---
Author Organization [facility] Home Care Servic es Address [address] [place] [address] Phone Care Team Providers Care Information Technology Technician Name Role Phone Bernardo Edwards MD Primary Care Provider [phone] Reason for Visit * Auth/Cert Specialty Diagnoses / Procedures Referred By Kesha diggs Referred To Contact Referral ID Status Reason Start Date Expiration Date Visits Re quested Visits Authorized [id number] 1 1 Encounter Details Date Type Department Care Team (Late st Contact Info) Description 06/21/2019 11:30 AM INSTALLATION MANAGER Home Care Visit [facility] [address] [place] [id number] Jalen Mahmood PTA PT HOME VISIT Social [...] Sign Reading Time Taken Comments Blood Pressure 110/76 06/21/2019 11:44 AM INSTALLATION MANAGER Pulse 82 06/21/2019 11:44 AM INSTALLATION MANAGER Temperature 36.8 ??C (98.2 ??F) 06/21/2019 11:[address] Respiratory Rate 18 06/21/2019 11:44 AM INSTALLATION MANAGER Oxygen Saturation 94% 06/21/2019 11:44 AM INSTALLATION MANAGER Inhaled Oxygen Concentration - - Weight - [...] jeannie in this visit Homebound Status Disciplines: Correction, Physical Therapy, Occupational [...] visit during episode of care Description: Home cloth beamer to measure vital signs during every home [...] Mobility/Balance Completed GT TRNG WITH 2WH.WALK. , 35 FT, WITH CGA 1 ASSIST. RAISED THE WALKER 1 NOTCH, TO KEEP PT MORE UPRIGHT. VC'S FOR SOME GT DEVIATIONS. Balance Training/Activities Description: Instruct patient/caregiver and perform balance training activities. Problem:PT Impaired Functional Mobility/Balance Completed STANDING BAL. ACT. AT KIT. SINK : MARCHING, HIP ABD, SIDESTEPPING, MINI-SQUATS. ALL REPS KEPT PT KEERTHI. ( 5-7). Therapeutic Exercise Description: Perform therapeutic exercise, progressing as tolerated. Problem:PT Impaired Functional Mobility/Balance Completed PT GAVE A VERBAL UNDERSTANDING OF EX'S THAT WE PERFORMED. Homebound Status Description: Patient is homebound due to difficulty in ambulation as evidenced by hx of chronic low back pain , needing a walker to ambulate, a fall risk and needing assistance with ADLS and personal care Problem:Homebound Status Goal:Patient recieves care at the most appropriate care setting Scheduled HOMEBOUND DUE TO A VERY UNSTEADY GT, HAVING MULTIPLE FALLS IN THE PAST 2 MONTHS. ALSO HAS LOW BACK PN GOING INTO LEGS. NEEDS 1-2 ASSIST TO LEAVE HER APPARTMENT. Monitor Vital Signs Description: Monitor blood pressure, pulse, oxygen saturation, respirations Problem:Monitor patient's vital signs every home health visit Goal:Measure vital signs during every home health visit during episode of care Scheduled documented in this encounter Home Health Visit - Actions and Narratives Actions GT TRNG W/W , KEEPING DISTAN CE WHAT PT COULD TOLERATE. WHEN HER ENDURANCE IMPROVES, WILL TRY TO ADD DISTANCE. THER EX TO LE'S IN SEATED AND STAND, ALSO STAND BALANCE. Narratives PT STATED THAT YESTERDAY SHE TOOK A FALL, HER LEGS GAVE OUT, WHEN IN KITCHEN. HAD TO BE LIFTED BY FIREFIGHTERS BACK TO A CHAIR. PT STATED THAT SHE CALLED DR. Laith RAPP OFFICE AND INFORMED THEM. documented in this encounter Care Teams Information Technology Technician Relationship Specialty Start Date End Date Bernardo Edwards MD [facility] [place] [address] PCP - General 06/14/19 07/04/20 documented as of this encounter
--- OUTSIDE RECORDS SUMMARY | 2024-08-13 05:03 | XMS_ITS | Encounter Summary ---
Author Organization [facility] Healthcare Address [address] [place] [address] Care Team Providers Care Core Driller Name Role Phone Hernando Velasquez MD Primary Care Provider [phone] Reason for Visit * Diagnostic Imaging (Routine) - Closed Specialty Diagnoses / Procedures Referred By Kesha diggs Referred To Contact Procedures Breast Imaging Diagnostic Outside Reference Transcribed Order, Provider Referral ID Status Reason Start Date Expiration Date Visits Re quested Visits Authorized [id number] Closed 02/19/2023 03/20/2024 1 1 Encounter Details Date Type Department Care Team (Late st Contact Info) Description 01/31/2019 Ancillary Procedure [facility] Outside Images [address] [place] [id number] Social History Tobacco Use Types Packs/Day Years [...] Procedure Name Priority Date/Time Associated Diagnosis Comments BREAST IMAGING MG DIAGNOSTIC OUTSIDE REFERENCE Routine 01/31/2019 12:00 AM CDT documented in this encounter Results * Breast Imaging Diagnostic Outside Reference (01/31/2019 12:00 AM CDT) Narrative XOCHITL_JEANNE_SHUKRI_CHRISTIANNE - 02/19/2023 1:02 PM CDT This order has been auto-finalized and does not contain a result. us Provider Transcribed Order IMG MAMMO PROCEDURES Final Result Performing Organization Address City/State/[facility] Co de Phone Number RAD_[email or web address] documented in this encounter Visit Diagnoses Not on filedocumented in this encounter Care Teams Core Driller Relationship Specialty Start Date End Date Hernando Velasquez MD [address] [place] [address] PCP - General 12/23/18 06/13/19 documented as of this encounter
--- OUTSIDE RECORDS SUMMARY | 2024-08-13 05:03 | XMS_ITS | Encounter Summary ---
Author Organization [facility] Healthcare Address [address] [place] [address] Care Team Providers Care Rocket Propellant Plant Supervisor Name Role Phone Bernardo Edwards MD Primary Care Provider [phone] Encounter Details Date Type Department Care Team (Late st Contact Info) Description 06/27/2019 3:27 AM FIRST ASSISTANT - 06/27/2019 5:55 AM FIRST ASSISTANT Hospital Encounter [address] [address] Unknown, Sridevi Rodrigez MD [address] [place] [address] [place] [address] Discharge Disposition: Discharge to home or self [...] Sign Reading Time Taken Comments Blood Pressure 94/57 06/27/2019 3:29 AM FIRST ASSISTANT Pulse 85 06/27/2019 3:29 AM FIRST ASSISTANT Temperature 36.8 ??C (98.2 ??F) 06/27/2019 3:29 AM CS T Respiratory Rate - - Oxygen Saturation 98% 06/27/2019 3:29 AM FIRST ASSISTANT Inhaled Oxygen Concentration - - Weight 102 kg (224 lb 13.9 oz) 06/27/2019 3:29 A M FIRST ASSISTANT Height 157.5 cm (5' 2 ) 06/27/2019 3:29 AM FIRST ASSISTANT Body Mass Index 41.13 06/27/2019 3:29 AM FIRST ASSISTANT documented in this encounter Medications at Time of Discharge amLODIPine (NORVASC) 10 mg tabletIndications :hypertension Take 10 mg by mouth daily. Indications: high blood pressure cholecalciferol (VITAMIN D-3) 400 unit capsuleIndication s:Vitamin [...] 1 patch on the skin daily 06/14/2019 olmesartan (BENICAR) 40 mg tabletIndications :hypertension Take [...] shortness of breath. Indications: Asthma Attack 3 albuterol HFA (VENTOLIN HFA) 90 mcg/actuation inhaler 2 Doses by inhal. via small vol.nebulizer route 4 (four) times a day as needed 06/13/2019 9 AMLODIPINE BESYLATE, BULK, MISC Take 10 mg by mouth every morning 12/08/2011 9 atorvastatin (LIPITOR) 10 mg tablet Take 20 mg by mouth daily 12/18/2017 9 atorvastatin (LIPITOR) 40 mg tabletIndications :hyperlipidemia Take 40 mg by mouth daily. Indications: excessive fat in the blood 9 baclofen (LIORESAL) 10 mg tabletIndications :Muscle Spasticity of Spinal Origin Take 10 mg by mouth 3 (three) times a day as needed for muscle spasms. Indications: muscle spasms caused by a spinal disease 9 baclofen (LIORESAL) 10 mg tablet Take 10 mg by mouth 3 (three) times a day as needed 06/09/2019 9 cetirizine (ZyrTEC) 10 mg tabletIndications :Seasonal Allergic Rhinitis Take 10 mg by mouth daily. Indications: Seasonal Runny Nose 0 cetirizine (ZyrTEC) 10 mg tablet Take 10 mg by mouth daily 12/18/2017 9 cloNIDine (CATAPRES) 0.2 mg tabletIndications :hypertension Take 0.2 mg by mouth 2 (two) times a day. Indications: high blood pressure 0 cloNIDine (CATAPRES) 0.2 mg tablet Take 0.2 mg by mouth 2 (two) times a day 12/08/2011 9 cyclobenzaprine (FLEXERIL) 10 mg tablet Take 5 mg by mouth 3 (three) times a day as needed 2 06/20/2019 9 cyclobenzaprine (FLEXERIL) 5 mg tabletIndications :Muscle Spasm Take 5 mg by mouth every 6 (six) hours as needed for muscle spasms. Indications: muscle spasm 9 dicyclomine (BENTYL) 10 mg capsuleIndication s:Irritable Bowel Syndrome Take 10 mg by mouth 3 (three) times a day. Indications: irritable colon 9 dicyclomine (BENTYL) 10 mg capsule Take 10 mg by mouth 3 (three) times a day 06/07/2019 9 dicyclomine (BENTYL) 20 mg tablet TK 1 T PO TID 3 06/14/2019 0 diphenhydrAMINE (BENADRYL) 25 mg capsuleIndication s:itching Take 25 mg by mouth every 8 (eight) hours as needed for itching. Indications: itching 9 diphenhydrAMINE (diphenhydrAMINE) 25 mg capsule 25 mg 06/13/2019 0 docusate sodium (COLACE) 100 mg capsule Take 100 mg by mouth nightly 11/16/2017 9 estradiol (ESTRACE) 0.5 mg tabletIndications :hormone replacement Take 0.5 mg by mouth daily. Indications: hormone replacement 0 estradiol (ESTRACE) 1 mg tablet Take 0.5 [...] day 06/07/2019 9 gabapentin (NEURONTIN) 400 mg capsuleIndication s:Neuropathic Pain Take 400 mg by mouth daily. pt takes 800 mg at 2PM and 10PM Indications: Neuropathic Pain 9 gabapentin (NEURONTIN) 400 mg capsule Take 400 mg by mouth daily 06/13/2019 9 hydrALAZINE (APRESOLINE) 50 mg tabletIndications :hypertension Take 50 mg by mouth 3 (three) times a day. Indications: high blood pressure 0 HYDROcodone-aceta minophen (NORCO) 7.5-325 mg per tabletIndications :Pain Take 1 tablet by mouth every 8 (eight) hours as needed for pain. Indications: pain 9 HYDROcodone-aceta minophen (NORCO) 7.5-325 mg per tablet Take 1 tablet by mouth 3 (three) times a day 06/14/2019 9 meloxicam (MOBIC) 15 mg tabletIndications :Osteoarthritis Take 15 mg by mouth daily. Indications: joint damage causing pain and loss of function 9 meloxicam (MOBIC) 7.5 mg tablet Take 15 mg by mouth daily 06/14/2019 9 metoprolol (LOPRESSOR) 100 mg tabletIndications :hypertension Take 100 mg by mouth 2 (two) times a day. Indications: high blood pressure 9 metoprolol (LOPRESSOR) 100 mg tablet Take [...] 40 mg by mouth daily 06/14/2019 9 polyethylene glycol (MIRALAX) 17 gram/dose powderIndications :Bowel Evacuation Take 17 g by mouth daily. Indications: emptying of the bowel 0 primidone (MYSOLINE) 50 mg tabletIndications :Essential Tremor Take 50 mg by mouth 2 (two) times a day. Indications: Essential Tremor 0 primidone (MYSOLINE) 50 mg tablet Take 50 mg by mouth 2 (two) times a day 11/16/2017 9 triamcinolone (KENALOG) 0.1 % cream Apply 1 application topically 2 (two) times a day as needed 0 06/14/2019 0 vitamin E acetate (VITAMIN E ORAL) Take 800 Units by mouth daily 12/18/2017 9 zolpidem (AMBIEN) 10 mg tabletIndications :Sleep-Onset Insomnia Take 10 mg by mouth nightly as needed for sleep. Indications: Difficulty Falling Asleep 9 zolpidem (AMBIEN) 10 mg tablet Take 10 mg by mouth nightly 06/13/2019 9 documented as of this encounter Discharge Disposition Disposition Code Departure Means Destination Discharge to home or self care documented in this encounter Plan of Treatment Not on file documented as of this encounter Visit Diagnoses Not on filedocumented in this encounter Care Teams Rocket Propellant Plant Supervisor Relationship Specialty Start Date End Date Bernardo Edwards MD [address] [place] [address] PCP - General 06/14/19 07/04/20 documented as of this encounter
--- OUTSIDE RECORDS SUMMARY | 2024-08-13 05:03 | XMS_ITS | Encounter Summary ---
Author Organization [facility] Address [address] [place] [address] Phone Care Team Providers Care Automation Machine Operator Name Role Phone Bernardo Edwards MD Primary Care Provider [phone] Reason for Visit * Auth/Cert Specialty Diagnoses / Procedures Referred By Kesha diggs Referred To Contact Referral ID Status Reason Start Date Expiration Date Visits Re quested Visits Authorized [id number] 1 1 Encounter Details Date Type Department Care Team (Latest Contact Info) Description 06/19/2019 9:00 AM HEALTH INFORMATICS INSTRUCTOR Home Care Visit [facility] [address] [place] [id number] Hilda Red OT OT INITIAL EVALUATION Social History Tobacco Use Types [...] Sign Reading Time Taken Comments Blood Pressure 140/84 06/19/2019 10:17 AM HEALTH INFORMATICS INSTRUCTOR Pulse 92 06/19/2019 10:17 AM HEALTH INFORMATICS INSTRUCTOR Temperature 36.7 ??C (98 ??F) 06/19/2019 10:17 AM HEALTH INFORMATICS INSTRUCTOR Respiratory Rate 18 06/19/2019 10:17 AM HEALTH INFORMATICS INSTRUCTOR Oxygen Saturation 95% 06/19/2019 10:17 AM HEALTH INFORMATICS INSTRUCTOR Inhaled Oxygen Concentration - - Weight - - Height - - Body Mass Index - - documented in this encounter Plan of Treatment Not on file documented as of this encounter Visit Diagnoses Not on filedocumented in this encounter Home Health Visit - Care Plan Visit Details Visit Type -OT Initial Evalu ation Discipline -Occupational Therapy Problems Problem Description Start Date Status Goals Interventions Homebound Status Disciplines: Detention, Physical Therapy, Occupational Therapy Patient's homebound status 9 Active 1 goal linked to scheduled/docume nted intervention 1 goal intervention scheduled/documen jeannie in this visit Monitor patient's vital signs every home health visit Disciplines: Detention, Physical Therapy, Occupational Therapy Monitor patient's vital signs every home health visit. 9 Active 1 goal linked to scheduled/docume nted intervention 1 goal intervention scheduled/documen jeannie in this visit OT Impaired ADLs Disciplines: Occupational Therapy Impaired independence in self-care, ADLs. 9 Active - 1 problem intervention scheduled/documen jeannie in this visit Goals Goal Associated Problem Outcome Goal Met? Visit Notes Patient recieves care at the most appropriate care setting Description: Patient receives care at the most appropriate care setting. Homebound Status No Measure vital signs during every home health visit during episode of care Description: Home shank rander to measure vital signs during every home [...] needing assistance with ADLS and personal care Monitor Vital Signs Description: Monitor blood pressure, pulse, oxygen saturation, respirations Problem:Monitor patient's vital signs every home health visit Goal:Measure vital signs during every home health visit during episode of care Completed Transfer Training Description: Instruct patient/caregiver and perform transfer training. Problem:OT Impaired ADLs Completed documented in this encounter Home Health Visit - Actions and Narratives Actions Pt seen for OT eval s/p hosp ital stay 06/10-06/14 d/t fall on 06/09. Pt reports 4 total falls in the last month. Pt reports one fall was due to picking pen up from her rolling office chair and wheels sliding out from under her. Patient presented to the ER 06/09/19 s/p fall with increased low back pain and released 06/14/19 with PRN use of back brace when OOB. Pt has doa worker Tues -Sat 4 hrs/day. Pt would benefit from further OT to instruct on spinal precautions and fall precautions for ADL and light meal prep. Pt using walker for ambulation and has power wc that currently needs new battery. Pt reports battery has been ordered. Pt instructed on positioning of office chair to prevent rolling for transfers and use of open cut examiner to obtain items. Pt educated on use of ttb for shower transfer d/t assist required to lift le. Pt reports too muc of space challenge for ttb. Pt instructed on spinal precautions for self care. Pt has f/u with pain md 06/27 d/t high pain. Pt agreeable to OT 1-2wk4 to instruct on ADL, light meal prep, and HEP in order to increase ind, activty tolerance, and improve pain. documented in this encounter Care Teams Automation Machine Operator Relationship Specialty Start Date End Date Bernardo Edwards MD [facility] [place] [address] PCP - General 06/14/19 07/04/20 documented as of this encounter
--- OUTSIDE RECORDS SUMMARY | 2024-08-13 05:03 | XMS_ITS | Encounter Summary ---
Author Organization [facility] Address [address] [place] [address] Care Team Providers Care Bat Person Name Role Phone Hernando Velasquez MD Primary Care Provider [phone] Reason for Visit * Diagnostic Imaging (Routine) - Closed Specialty Diagnoses / Procedures Referred By Kesha diggs Referred To Contact Procedures Breast Imaging Screening Outside Reference Transcribed Order, Provider Referral ID Status Reason Start Date Expiration Date Visits Re quested Visits Authorized [id number] Closed 02/19/2023 03/20/2024 1 1 Encounter Details Date Type Department Care Team (Late st Contact Info) Description 01/17/2019 Ancillary Procedure [facility] Outside Images [address] [place] [id number] Social History Tobacco Use Types Packs/Day Years [...] Date/Time Associated Diagnosis Comments BREAST IMAGING MG SCREENING OUTSIDE REFERENCE Routine 01/17/2019 12:00 AM CDT documented in this encounter Results * Breast Imaging Screening Outside Reference (01/17/2019 12:00 AM CDT) Narrative [email or web address] - 02/19/2023 1:02 PM CDT This order has been auto-finalized and does not contain a result. us Provider Transcribed Order IMG MAMMO PROCEDURES Final Result Performing Organization Address City/State/[facility] Co de Phone Number [email or web address] documented in this encounter Visit Diagnoses Not on filedocumented in this encounter Care Teams Bat Person Relationship Specialty Start Date End Date Hernando Velasquez MD [address] [place] [address] PCP - General 12/23/18 06/13/19 documented as of this encounter
--- OUTSIDE RECORDS SUMMARY | 2024-08-13 05:03 | XMS_ITS | Encounter Summary ---
Author Organization [facility] Address [address] [place] [address] Phone Care Team Providers Care Assistant Project Engineer Name Role Phone Bernardo Edwards MD Primary Care Provider [phone] Encounter Details Date Type Department Care Team (Late st Contact Info) Description 06/15/2019 Plan of Care Documentation [facility] [address] [place] [address] [address] [place] [address] Social History Tobacco Use Types Packs/Day Years [...] on filedocumented in this encounter Care Teams Assistant Project Engineer Relationship Specialty Start Date End Date Bernardo Edwards MD [address] [place] [address] PCP - General 06/14/19 07/04/20 documented as of this encounter
--- OUTSIDE RECORDS SUMMARY | 2024-08-13 05:03 | XMS_ITS | Encounter Summary ---
Author Organization [facility] Care Team Providers Care School Photographer Name Role Phone Bernardo Edwards MD Primary Care Provider [phone] Encounter Details Date Type Department Care Team (Latest Contact Info) Description 06/14/2019 Travel Social History Tobacco Use Types Packs/Day [...] on filedocumented in this encounter Care Teams School Photographer Relationship Specialty Start Date End Date Bernardo Edwards MD [address] [place] [address] PCP - General 06/14/19 07/04/20 documented as of this encounter
--- OUTSIDE RECORDS SUMMARY | 2024-08-13 05:03 | XMS_ITS | Encounter Summary ---
Author Organization [facility] Healthcare Address [address] [place] [address] Care Team Providers Care Keeper Head Name Role Phone Hernando Velasquez MD Primary Care Provider [phone] Encounter Details Date Type Department Care Team (Late st Contact Info) Description 06/07/2019 1:39 AM PROGRAM EVALUATOR - 06/07/2019 11:01 AM PROGRAM EVALUATOR Hospital Encounter [address] [address] Sridevi Kaiser MD [address] [place] [address] [place] [address] Juan Archer MD [address] [place] [phone] Unknown, Notinfile Discharge Disposition: Discharge to home or self [...] Sign Reading Time Taken Comments Blood Pressure 168/87 06/07/2019 1:45 AM PROGRAM EVALUATOR Pulse 86 06/07/2019 1:45 AM PROGRAM EVALUATOR Temperature 36.6 ??C (97.9 ??F) 06/07/2019 1:45 AM CS T Respiratory Rate - - Oxygen Saturation 95% 06/07/2019 1:45 AM PROGRAM EVALUATOR Inhaled Oxygen Concentration - - Weight 112 kg (246 lb 14.7 oz) 06/07/2019 1:45 A M PROGRAM EVALUATOR Height 157.5 cm (5' 2 ) 06/07/2019 1:45 AM PROGRAM EVALUATOR Body Mass Index 45.16 06/07/2019 1:45 AM PROGRAM EVALUATOR documented in this encounter Medications at Time [...] 3 (three) times a day 06/07/2019 9 docusate sodium (COLACE) 100 mg capsule [...] 2 (two) times a day 06/07/2019 9 metoprolol (LOPRESSOR) 100 mg tablet Take [...] a day as needed 0 03/31/2019 9 primidone (MYSOLINE) 50 mg tablet Take 50 mg by mouth 2 (two) times a day 11/16/2017 9 vitamin E acetate (VITAMIN E ORAL) Take 800 Units by mouth daily 12/18/2017 9 documented as of this encounter Discharge Disposition Disposition Code Departure Means Destination Discharge to home or self care documented in this encounter Plan of Treatment Not on file documented as of this encounter Procedures Procedure Name Priority Date/Time Associated Diagnosis Comments BASIC METABOLIC PANEL Routine 06/07/2019 9:21 AM PROGRAM EVALUATOR URINALYSIS, COMPLETE Routine 06/07/2019 7:31 AM PROGRAM EVALUATOR CBC WITH AUTO DIFFERENTIAL Routine 06/07/2019 4:51 AM PROGRAM EVALUATOR TROPONIN I Routine 06/07/2019 4:51 AM PROGRAM EVALUATOR COMPREHENSIVE METABOLIC PANEL Routine 06/07/2019 4:51 AM PROGRAM EVALUATOR ECG 12-LEAD 06/07/2019 4:[address] ABDOMEN PELVIS WO CONTRAST 06/07/2019 12:00 AM PROGRAM EVALUATOR documented in this encounter Results * (ABNORMAL) Basic metabolic panel (06/07/2019 9:21 AM PROGRAM EVALUATOR) Sodium 137 135 - 145 mmol/L [facility] Potassium 5.0 3.3 - 5.1 mmol/L [facility] Chloride 102 96 - 108 mmol/L [facility] Carbon Dioxide 28 22 - 32 mmol/L [facility] Anion Gap 7 7 - 16 [facility] Glucose 94 70 - 100 mg/dL [facility] BUN 33(H) 8 - 25 mg/dL [facility] Creatinine 1.0 0.5 - 1.1 mg/dL [facility] Comment: NOTE: Estimated GFR (Cockroft-Gault) will NOT be calculated unless patient Height and Weight were entered. Also, Kidney Disease Stage (GFR) and Estimated GFR (Cockroft-Gault) will NOT be calculated if Creatinine result is <0.2. Kidney Disease Stage 59 mL/MIN [facility] Comment: NOTE; ??The GFR is an estimated [...] failure or on dialysis Est GFR (Cockcroft-G) 65 ml/MIN [facility] Comment: Estimated GFR(Cockroft-Gault)is used to calculate patient medication dosage Calcium 8.4(L) 8.6 - 10.3 mg/dL [facility] 06/07/2019 9:21 AM PROGRAM EVALUATOR 06/07/2019 9:27 AM PROGRAM EVALUATOR Narrative Resulting Agency Comment ER us Juan Archer MD LAB BLOOD ORDERABLES Final Resul t [facility] [address] [place] [address], [facility] [phone] * Urinalysis, Complete (06/07/2019 7:31 AM PROGRAM EVALUATOR) Ur Collection Type CLEAN CATCH [facility] Urine Color YELLOW YELLOW [facility] Urine Clarity Slightly-Heidy udy CLEAR [facility] Urine Glucose (UA) NORMAL NORMAL mg/dL [facility] Urine Bilirubin NEGATIVE NEGATIVE mg/dl [facility] Urine Ketones NEGATIVE NEGATIVE mg/dL [facility] Ur Specific [place] 1.021 1.005 - 1.025 [facility] Urine Blood NEGATIVE NEGATIVE mg/dl [facility] Urine pH 5.0 5.0 - 8.0 [facility] Urine Protein NEGATIVE NEGATIVE mg/dL [facility] Urine Urobilinogen NORMAL NORMAL mg/dL [facility] Urine Nitrite NEGATIVE NEGATIVE [facility] Ur Leukocyte Esterase NEGATIVE NEGATIVE Lizeth/ul [facility] Ur Microscopic Review Indicated or Ordered [facility] Urine RBC 3 0 - 2 /HPF [facility] Urine WBC 5 0 - 2 /HPF [facility] Urine Bacteria Few /HPF [facility] Urine Mucus RARE /LPF [facility] Ur Squamous Epith Cells Rare /HPF [facility] Hyaline Casts 10 0 - 2 /LPF [facility] 06/07/2019 7:31 AM PROGRAM EVALUATOR 06/07/2019 7:53 AM PROGRAM EVALUATOR Narrative [facility] - 06/07/2019 8:05 AM PROGRAM EVALUATOR pjp Clean catch Resulting Agency Comment ER us Sridevi Kaiser MD LAB URINE ORDERABLES Ellyn l Result [facility] [address], [place] [id number] [place] [address] * Troponin I (06/07/2019 4:51 AM PROGRAM EVALUATOR) [facility] Troponin I <0.300 0.000 - 0.300 ng/mL [facility] Comment: Reference using SHANIA Chemiluminescence ? Negative: Repeat in 4-6 hours as indicated. 06/07/2019 4:51 AM PROGRAM EVALUATOR 06/07/2019 4:56 AM PROGRAM EVALUATOR Narrative Resulting Agency Comment ER us Sridevi Kaiser MD LAB BLOOD ORDERABLES Ellyn bryan Result [facility] [address] [place] [address], [facility] [phone] * (ABNORMAL) Comprehensive metabolic panel (06/07/2019 4:51 AM PROGRAM EVALUATOR) Sodium 142 135 - 145 mmol/L [facility] Potassium 5.8(H) 3.3 - 5.1 mmol/L [facility] Chloride 103 96 - 108 mmol/L [facility] Carbon Dioxide 31 22 - 32 mmol/L [facility] Anion Gap 8 7 - 16 [facility] Glucose 120(H) 70 - 100 mg/dL [facility] BUN 33(H) 8 - 25 mg/dL [facility] Creatinine 1.0 0.5 - 1.1 mg/dL [facility] Comment: NOTE: Estimated GFR (Cockroft-Gault) will NOT be calculated unless patient Height and Weight were entered. Also, Kidney Disease Stage (GFR) and Estimated GFR (Cockroft-Gault) will NOT be calculated if Creatinine result is <0.2. Kidney Disease Stage 59 mL/MIN [facility] Comment: NOTE; ??The GFR is an estimated [...] failure or on dialysis Est GFR (Cockcroft-G) 65 ml/MIN [facility] Comment: Estimated GFR(Cockroft-Gault)is used to calculate patient medication dosage Calcium 9.0 8.6 - 10.3 mg/dL [facility] Total Protein 7.0 6.4 - 8.3 g/dL [facility] Albumin 4.0 3.5 - 5.0 g/dL [facility] Globulin 3.0 2.3 - 3.5 gm/dL [facility] Albumin/Globulin Ratio 1.3 1.1 - 1.8 [facility] Total Bilirubin <0.2 0.0 - 1.2 mg/dL [facility] AST 56(H) 0 - 32 U/L [facility] ALT 51(H) 0 - 33 U/L [facility] Alkaline Phosphatase 99 35 - 104 U/L [facility] 06/07/2019 4:51 AM PROGRAM EVALUATOR 06/07/2019 4:56 AM PROGRAM EVALUATOR Narrative Resulting Agency Comment ER us Sridevi Kaiser MD LAB BLOOD ORDERABLES Ellyn adams Result [facility] [address] [place] [address], [facility] [phone] * (ABNORMAL) CBC with auto differential (06/07/2019 4:51 AM PROGRAM EVALUATOR) WBC 7.9 3.8 - 9.9 X10 3/ul [facility] RBC 4.15 3.90 - 5.20 x10 6/ul [facility] Hemoglobin 11.2(L) 11.9 - 15.5 g/dL [facility] Hct 37.7 35.6 - 45.5 % [facility] MCV 90.8 81.3 - 96.4 fl [facility] MCH 27.0(L) 27.1 - 33.3 pg [facility] MCHC 29.7(L) 32.3 - 35.7 g/dl [facility] RDW 14.8 11.1 - 14.9 % [facility] Plt Count 205 150 - 400 x10 3/ul [facility] MPV 11.1 9.1 - 12.3 fl [facility] Neut % 51.0 % [facility] Immature Gran % 1.0 % [facility] Lymph % 34.6 % [facility] Teller % 10.8 % [facility] Eos % 2.2 % [facility] AUTO BASO % 0.4 % [facility] NEUTROPHIL ABS # 4.0 1.7 - 6.5 x10 3/ul [facility] Immature Gran # 0.1 0.0 - 0.1 x10 3/ul [facility] Absolute Lymphs (auto) 2.7 0.8 - 3.3 x10 3/ul [facility] Absolute Monos (auto) 0.9(H) 0.2 - 0.8 x10 3/ul [facility] Absolute Eos (auto) 0.2 0.0 - 0.5 x10 3/ul [facility] BASOPHIL ABS # 0.0 0.0 - 0.1 x10 3/ul [facility] Nucleat RBC Rel Count 0.0 #/100WBC [facility] NRBC abs 0.00 0.00 - 0.01 x10 3/ul [facility] Absolute Neutrophils 4,000 200 - 8,000 /ul [facility] 06/07/2019 4:51 AM PROGRAM EVALUATOR 06/07/2019 4:56 AM PROGRAM EVALUATOR Narrative Resulting Agency Comment ER Sridevi Kaiser MD LAB BLOOD ORDERABLES Ellyn l Result Performing Organization Address [facility] Co de Phone Number [facility] [address] [place] [address], [facility] [phone] * ECG 12 lead (06/07/2019 4:33 AM PROGRAM EVALUATOR) Ventricular Rate EKG/Min 75 BPM ER RADIOLOGY Atrial Rate 75 BPM ER RADIOLOGY UT-Interval (MSEC) 174 ms ER RADIOLOGY QRS-Interval (MSEC) 82 ms ER RADIOLOGY QT-Interval (MSEC) 412 ms ER RADIOLOGY QTc 460 ms ER RADIOLOGY P [place] 40 degrees ER RADIOLOGY R [place] -18 degrees ER RADIOLOGY T [place] 40 degrees ER RADIOLOGY Diagnosis Normal sinus rhythm Voltage criteria for left ventricular hypertrophy ST elevation, consider early repolarization , pericarditis, vs injury Abnormal ECG When compared with ECG of 18-DEC-2017 16:29, ST elevation now present in the high lateral leads ER RADIOLOGY 06/07/2019 4:33 AM PROGRAM EVALUATOR 06/07/2019 7:35 AM PROGRAM EVALUATOR Narrative Resulting Agency Comment ANTOINETTE Sridevi Kaiser MD ECG ORDERABLES Final Res ult Performing Organization Address [facility] de Phone Number ER RADIOLOGY * CT Abdomen Pelvis WO Contrast (06/07/2019 12:00 AM PROGRAM EVALUATOR) Anatomical Region Laterality Modality Body N/A Computed Tomogra phy 06/07/2019 8:46 AM PROGRAM EVALUATOR Narrative 06/07/2019 8:51 AM PROGRAM EVALUATOR Patient Name: CELESTINA ANSARI ?Ordering Dr: Juan Archer MD ?? D.O.B: 1950 ? Exam Date: 06/07/ ?? 0000 ?? Age: 68 ?Sex: Female ? MR#: [id number] ?? Loc: ? RADIOLOGY REPORT ?? Order #[id number] ?? CT Scan ? CT Abd/Pelvis WO IV Contrast ? Signed ?? EXAM DESCRIPTION: ??CT Abd/Pelvis WO IV Contrast ? REASON FOR STUDY: ??Back pain and back spasms, onset 3 months ago ? TECHNIQUE: ??CT scan of the abdomen and pelvis performed without intravenous ?? and without oral contrast using helical scanning technique. Reconstructed ?? coronal and sagittal MPR images reviewed. All images stored on PACS. ? Automated exposure control was used as a dose optimization technique for this ?? examination. ? COMPARISON: ??CT abdomen/pelvis 11/16/2017 ? FINDINGS: ? The sensitivity for detection of visceral lesions is diminished without the ?? use of intravenous contrast. ? LOWER CHEST: Limited images of the lung bases do not demonstrate any focal ?? consolidation or pleural effusion. ? LIVER: The liver is normal in size with no hepatic surface nodularity. ??There ?? are no focal hepatic lesions on this noncontrast examination. ? GALLBLADDER: Normal with no cholelithiasis, gallbladder wall thickening or ?? pericholecystic fluid. ? BILE DUCTS: No intrahepatic or extrahepatic ductal dilatation. ? SPLEEN: The spleen is normal in size with no focal splenic lesions on this ?? noncontrast examination. ? PANCREAS: There are no focal pancreatic lesions on this noncontrast ?? examination. ??There is no peripancreatic inflammatory stranding or pancreatic ?? ductal dilatation. ? ADRENALS: Normal. ? KIDNEYS/URINARY TRACT: There are nonobstructing 2 mm stones in the lower poles ?? of both kidneys. ??There are no obstructing renal or ureteral stones. ??There is ?? no hydronephrosis or hydroureter. ??There are no focal renal lesion on this ?? noncontrast examination. ??The bladder is decompressed. ? GI: The stomach, small bowel, large bowel are normal in caliber with no ?? evidence of obstruction or inflammation. ??There is mild colonic diverticulosis ?? with no CT evidence of diverticulitis. ??The appendix is not visualized and ?? reported as surgically absent by the patient ? PERITONEUM/RETROPERITONEUM: There is no abdominal or pelvic lymphadenopathy or ?? free fluid. ??There is no free intraperitoneal or retroperitoneal air. ? REPRODUCTIVE: The uterus is surgically absent. ? VASCULATURE: The abdominal aorta contains mild to moderate atherosclerotic ?? calcification but is normal in caliber. ? MUSCULOSKELETAL: Bone windows do not demonstrate any abnormal osseous lytic or ?? blastic lesions. ??There is moderate facet osteoarthropathy in the lower lumbar ?? spine. ? OTHER: There is mild body wall edema. ? IMPRESSION: ? 1. ??No CT evidence of an acute inflammatory process in the abdomen or pelvis. ? 2. ??Nonobstructing 2 mm stones in the lower poles of both kidneys. ? 3. ??Mild colonic diverticulosis with no CT evidence of diverticulitis. ? 4. 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 ? 5. ??Mild body wall edema. ? THIS IS AN ELECTRONICALLY VERIFIED FINAL REPORT ?? 06/07/2019 8:51 AM - Electronically signed by Jacobo Mckay M.D. ?? Jacobo Mckay M.D. ? CN ?? D: ??06/07/2019 8:51 AM ?? T: ? Report ID: [id number] ?? Reading Location: ??[id number] ? REPORT ELECTRONICALLY SIGNED IN OTHER VENDOR SYSTEM ?? Resulting Agency Comment E Procedure Note Jacobo Mckay MD - 06/07/2019 Patient Name: CELESTINA ANSARI Reji Dr: Juan Archer MD D.O.B: 1950 Exam Date: 06/07/19 0000 Age: 68 Sex: Female MR#: [id number] Loc: RADIOLOGY REPORT Order #[id number] CT Scan CT Abd/Pelvis WO IV Contrast Signed EXAM DESCRIPTION: CT Abd/Pelvis WO IV Contrast REASON FOR STUDY: Back pain and back spasms, onset 3 months ago TECHNIQUE: CT scan of the abdomen and pelvis performed withoutintravenous and without oral contrast using helical scanning technique. Reconstructed coronal and sagittal MPR images reviewed. All images stored on PACS. Automated exposure control was used as a dose optimization technique forthis examination. COMPARISON: CT abdomen/pelvis 11/16/2017 FINDINGS: The sensitivity for detection of visceral lesions is diminished withoutthe use of intravenous contrast. LOWER CHEST: Limited images of the lung bases do not demonstrate anyfocal consolidation or pleural effusion. LIVER: The liver is normal in size with no hepatic surface nodularity.There are no focal hepatic lesions on this noncontrast examination. GALLBLADDER: Normal with no cholelithiasis, gallbladder wall thickeningor pericholecystic fluid. BILE DUCTS: No intrahepatic or extrahepatic ductal dilatation. SPLEEN: The spleen is normal in size with no focal splenic lesions onthis noncontrast examination. PANCREAS: There are no focal pancreatic lesions on this noncontrast examination. There is no peripancreatic inflammatory stranding orpancreatic ductal dilatation. ADRENALS: Normal. KIDNEYS/URINARY TRACT: There are nonobstructing 2 mm stones in the lowerpoles of both kidneys. There are no obstructing renal or ureteral stones.There is no hydronephrosis or hydroureter. There are no focal renal lesion onthis noncontrast examination. The bladder is decompressed. GI: The stomach, small bowel, large bowel are normal in caliber with no evidence of obstruction or inflammation. There is mild colonicdiverticulosis with no CT evidence of diverticulitis. The appendix is not visualizedand reported as surgically absent by the patient PERITONEUM/RETROPERITONEUM: There is no abdominal or pelviclymphadenopathy or free fluid. There is no free intraperitoneal or retroperitoneal air. REPRODUCTIVE: The uterus is surgically absent. VASCULATURE: The abdominal aorta contains mild to moderateatherosclerotic calcification but is normal in caliber. MUSCULOSKELETAL: Bone windows do not demonstrate any abnormal osseouslytic or blastic lesions. There is moderate facet osteoarthropathy in the lowerlumbar spine. OTHER: There is mild body wall edema. IMPRESSION: 1. No CT evidence of an acute inflammatory process in the abdomen orpelvis. 2. Nonobstructing 2 mm stones in the lower poles of both kidneys. 3. Mild colonic diverticulosis with no CT evidence of diverticulitis. 4. 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 5. Mild body wall edema. THIS IS AN ELECTRONICALLY VERIFIED FINAL REPORT 06/07/2019 8:51 AM - Electronically signed by Jacobo DE LA VEGA T: Report ID: [id number] Reading Location: [place] [address] REPORT ELECTRONICALLY SIGNED IN OTHER VENDOR SYSTEM us Juan Archer MD IMG CT PROCEDURES Final Result documented in this encounter Visit Diagnoses Not on filedocumented in this encounter Care Teams Keeper Head Relationship Specialty Start Date End Date Hernando Velasquez MD [address] [place] [address] PCP - General 12/23/18 06/13/19 documented as of this encounter
--- OUTSIDE RECORDS SUMMARY | 2024-08-13 05:04 | XMS_ITS | Encounter Summary ---
Author Organization [facility] Healthcare Address [address] [place] [address] Care Team Providers Care Retail Wireless Sales Representative Name Role Phone Unavailable Primary Care Provider Unavailabl e Encounter Details Date Type Department Care Team (Latest Contact Info) Description 03/18/2016 9:23 PM CDT - 03/23/2016 6:10 PM CDT Hospital Encounter [facility] Kathryn Escobar MD [address] [place] [address] Closed displaced bimalleolar fracture of left lower leg; Acute kidney failure (CMS/HCC); Hypo-osmolality and hyponatremia; Body mass index (BMI) of 40.0-44.9 in adult (CMS/HCC); Essential (primary) hypertension; Hyperkalemia; Dehydration; Hypotension; Zoster without complications; Primary osteoarthritis of shoulder; Obesity; Epilepsy without status epilepticus, not intractable (CMS/HCC); Fall on same level; Kitchen of single-family private house as place of occurrence of external cause; 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; Allergy status to sulfonamides Social History Tobacco Use Types Packs/Day Years Used Date Smoking Tobacco: Never Assessed Comments Unknown Sex and Gender Information Value Date Recorded Sex Assigned at Not on file Legal Sex Female 10:28 AM CDT Gender Identity Female 01/30/2020 10:55 AM CDT Sexual Orientation Not on file documented as of this encounter Last Filed Vital Signs Vital Sign Reading Time Taken Comments Blood Pressure 152/76 03/19/2016 8:26 AM CDT Pulse 86 03/19/2016 8:26 AM CDT Temperature 37 ??C (98.6 ??F) 03/19/2016 8:26 AM CDT Respiratory Rate - - Oxygen Saturation 98% 03/19/2016 8:26 AM CDT Inhaled Oxygen Concentration - - Weight 80.6 kg (177 lb 11.2 oz) 03/19/2016 8:26 AM CDT Height 160 cm (5' 3 ) 03/19/2016 8:26 AM CDT Body Mass Index 31.48 03/19/2016 8:26 AM CDT documented in this encounter Medications at Time of Discharge AMLODIPINE BESYLATE, BULK, MISC Take 10 mg by mouth every morning 12/08/2011 06/29/2019 cloNIDine (CATAPRES) 0.2 mg tablet Take 0.2 mg by mouth 2 (two) times a day 12/08/2011 06/29/2019 famciclovir (FAMVIR) 250 mg tablet Take 250 mg by mouth 2 (two) times a day 12/08/2011 06/29/2019 documented as of this encounter Plan of Treatment Not on file documented as of this encounter Procedures Procedure Name Priority Date/Time Associated Diagnosis Comments BASIC METABOLIC PANEL Routine 03/22/2016 4:47 AM CDT CBC WITH AUTO DIFFERENTIAL Routine 03/22/2016 4:46 AM CDT CBC WITH AUTO DIFFERENTIAL Routine 03/21/2016 5:24 AM CDT BASIC METABOLIC PANEL Routine 03/21/2016 5:24 AM CDT CBC WITH AUTO DIFFERENTIAL Routine 03/20/2016 6:27 AM CDT BASIC METABOLIC PANEL Routine 03/20/2016 6:27 AM CDT MICROBIOLOGY SPECIMEN REPORT (CONVERTED) Routine 03/19/2016 9:50 PM CDT URINALYSIS AND REFLEX TO MICROSCOPIC AND CULTURE Routine 03/19/2016 9:50 PM CDT BASIC METABOLIC PANEL Routine 03/19/2016 3:35 PM CDT CBC WITH AUTO DIFFERENTIAL Routine 03/19/2016 9:03 AM CDT HEMOGLOBIN A1C Routine 03/19/2016 9:03 AM CDT CREATINE KINASE (CK), TOTAL Routine 03/19/2016 9:03 AM CDT BASIC METABOLIC PANEL Routine 03/19/2016 9:03 AM CDT CBC WITH AUTO DIFFERENTIAL Routine 03/18/2016 8:18 PM CDT PROTIME-INR Routine 03/18/2016 8:18 PM CDT COMPREHENSIVE METABOLIC PANEL Routine 03/18/2016 8:18 PM CDT XR ANKLE LEFT 3 OR MORE VIEWS Routine 03/18/2016 12:00 AM CDT XR TIBIA FIBULA LEFT 2 VIEWS Routine 03/18/2016 12:00 AM CDT XR KNEE LEFT 1 OR 2 VIEWS Routine 03/18/2016 12:00 AM CDT documented in this encounter Results * (ABNORMAL) Basic metabolic panel (03/22/2016 4:47 AM CDT) Sodium 132(L) 135 - 145 mmol/L 03/22/2016 5:45 AM CDT [facility] [employer] HISTORICAL RESULTS Potassium 4.7 3.3 - 5.1 mmol/L 03/22/2016 5:45 AM CDT [facility] [employer] HISTORICAL RESULTS Chloride 95(L) 96 - 108 mmol/L 03/22/2016 5:45 AM CDT [facility] [employer] HISTORICAL RESULTS Carbon Dioxide 28 22 - 32 mmol/L 03/22/2016 5:45 AM CDT [facility] [employer] HISTORICAL RESULTS Anion Gap 9 7 - 16 03/22/2016 5:45 AM CDT [facility] [employer] HISTORICAL RESULTS Glucose 118(H) 70 - 100 mg/dL BUN 17 8 - 23 mg/dL Creatinine 0.6 0.5 - 1.1 mg/dL Comment: NOTE: Estimated GFR (Cockroft-Gault) will NOT be calculated unless patient Height and Weight were entered. Also, Kidney Disease Stage (GFR) and Estimated GFR (Cockroft-Gault) will NOT be calculated if Creatinine result is <0.2. Kidney Disease Stage > 90 mL/MIN Comment: NOTE; ??The GFR is an estimated value using the creatinine, sex, age, and race of the patient. THE ESTIMATED GFR IS VALIDATED FOR AGES 18-70 YEARS STAGE ?mL/Min ?DESCRIPTION ??1 ?90 mL/min or more ?Normal or elevated GFR ??2 ? 60-89 mL/min ?Mildly decreased GFR ??3 ? 30-59 mL/min ?Moderately decreased GFR ??4 ? 15-29 mL/min ?Severely decreased GFR ??5 ? <15 mL/min ? Kidney failure or on dialysis @ Est GFR (Cockcroft-G) 96 ml/MIN 03/22/2016 5:45 AM [facility]ISTORICAL RESULTS Calcium 8.3(L) 8.8 - 10.2 mg/dL 03/22/2016 5:45 AM [facility] HISTORICAL RESULTS 03/22/2016 4:47 AM CDT 03/22/2016 5:14 AM CDT us Kathryn Escobar MD LAB BLOOD ORDERABLES F inal Result [facility] * (ABNORMAL) CBC with auto differential (03/22/2016 4:46 AM CDT) WBC 6.9 4.6 - 10.2 x10 3/ul 03/22/2016 5:17 AM CDT [employer] HISTORICAL RESULTS RBC 3.06(L) 3.76 - 4.80 x10 6/ul 03/22/2016 5:17 AM CDT [employer] HISTORICAL RESULTS Hemoglobin 9.4(L) 11.0 - 15.0 g/dl 03/22/2016 5:17 AM CDT [employer] HISTORICAL RESULTS Hct 28.9(L) 33.0 - 43.0 % 03/22/2016 5:17 AM CDT [employer] HISTORICAL RESULTS MCV 94.4 80.0 - 97.0 fl 03/22/2016 5:17 AM CDT [employer] HISTORICAL RESULTS MCH 30.7 27.0 - 31.2 pg 03/22/2016 5:17 AM CDT [employer] HISTORICAL RESULTS MCHC 32.5 31.8 - 35.4 g/dl 03/22/2016 5:17 AM CDT [employer] HISTORICAL RESULTS RDW 12.6 11.6 - 14.8 % 03/22/2016 5:17 AM CDT [employer] HISTORICAL RESULTS Plt Count 122(L) 124 - 400 x10 3/ul 03/22/2016 5:17 AM CDT [employer] HISTORICAL RESULTS MPV 10.9(H) 7.4 - 10.4 fl 03/22/2016 5:17 AM CDT [employer] HISTORICAL RESULTS Neut % 45.6 37.0 - 85.0 % 03/22/2016 5:17 AM CDT [employer] HISTORICAL RESULTS Immature Gran % 1.3 0.0 - 3.0 % 03/22/2016 5:17 AM CDT [employer] HISTORICAL RESULTS Lymph % 36.9 5.0 - 45.0 % 03/22/2016 5:17 AM CDT [facility] [employer] HISTORICAL RESULTS Radford % 14.0 3.0 - 15.0 % 03/22/2016 5:17 AM CDT [facility] HISTORICAL RESULTS Eos % 1.9 0.0 - 7.0 % 03/22/2016 5:17 AM T [facility] HISTORICAL RESULTS Baso % 0.3 0.0 - 2.0 % 03/22/2016 5:17 AM T [facility] HISTORICAL RESULTS Absolute Neuts (auto) 3.1 1.7 - 8.7 x10 3/ul 03/22/2016 5:17 AM T [facility] HISTORICAL RESULTS Immature Gran # 0.1 0.0 - 0.3 x10 3/ul 03/22/2016 5:17 AM T [facility] HISTORICAL RESULTS Absolute Lymphs (auto) 2.5 0.2 - 4.6 x10 3/ul 03/22/2016 5:17 AM T [facility] HISTORICAL RESULTS Absolute Monos (auto) 1.0 0.1 - 1.5 x10 3/ul 03/22/2016 5:17 AM T [facility] HISTORICAL RESULTS Absolute Eos (auto) 0.1 0.0 - 0.7 x10 3/ul 03/22/2016 5:17 AM T [facility] HISTORICAL RESULTS Absolute Basos (auto) 0.0 0.0 - 0.2 x10 3/ul 03/22/2016 4:46 AM CDT 03/22/2016 5:14 AM CDT us Kathryn Escobar MD LAB BLOOD ORDERABLES F inal Result [facility] HISTORICAL RESULTS * (ABNORMAL) CBC with auto differential (03/21/2016 5:24 AM CDT) WBC 9.4 4.6 - 10.2 x10 3/ul 03/21/2016 6:02 AM T [facility] HISTORICAL RESULTS RBC 3.17(L) 3.76 - 4.80 x10 6/ul 03/21/2016 6:09 AM T [facility] HISTORICAL RESULTS Comment:Results reviewed Hemoglobin 10.2(L) 11.0 - 15.0 g/dl 03/21/2016 6:02 AM CDT [facility] HISTORICAL RESULTS Hct 31.0(L) 33.0 - 43.0 % 03/21/2016 6:02 AM [facility] HISTORICAL RESULTS MCV 97.8(H) 80.0 - 97.0 fl 03/21/2016 6:02 AM [facility] HISTORICAL RESULTS MCH 32.2(H) 27.0 - 31.2 pg 03/21/2016 6:02 AM [facility] HISTORICAL RESULTS MCHC 32.9 31.8 - 35.4 g/dl 03/21/2016 6:02 AM [facility] HISTORICAL RESULTS RDW 13.2 11.6 - 14.8 % 03/21/2016 6:02 AM [facility] [employer] [facility] RESULTS Plt Count 125 124 - 400 x10 3/ul 03/21/2016 6:02 AM [facility] [employer] [facility] HISTORICAL RESULTS MPV 11.5(H) 7.4 - 10.4 fl 03/21/2016 6:02 AM [facility] [employer] [facility] HISTORICAL RESULTS Neut % 40.9 37.0 - 85.0 % 03/21/2016 6:02 AM [facility] [employer] [facility] HISTORICAL RESULTS Immature Gran % 0.9 0.0 - 3.0 % 03/21/2016 6:02 AM [facility] [employer] [facility] HISTORICAL RESULTS Lymph % 38.9 5.0 - 45.0 % 03/21/2016 6:02 AM [facility] [employer] [facility] HISTORICAL RESULTS Radford % 17.5(H) 3.0 - 15.0 % 03/21/2016 6:02 AM [facility] [employer] [facility] HISTORICAL RESULTS Eos % 1.4 0.0 - 7.0 % 03/21/2016 6:02 AM [facility] HISTOR[facility] RESULTS Baso % 0.4 0.0 - 2.0 % 03/21/2016 6:02 AM [facility] [employer] [facility] HISTORICAL RESULTS Absolute Neuts (auto) 3.8 1.7 - 8.7 x10 3/ul 03/21/2016 6:02 AM [facility] HISTOR[facility] RESULTS Immature Gran # 0.1 0.0 - 0.3 x10 3/ul 03/21/2016 6:02 AM [facility] [employer] [facility] HISTOR[facility] RESULTS Absolute Lymphs (auto) 3.6 0.2 - 4.6 x10 3/ul 03/21/2016 6:02 AM T [facility] HISTORICAL RESULTS Absolute Monos (auto) 1.6(H) 0.1 - 1.5 x10 3/ul 03/21/2016 6:02 AM T [facility] HISTORICAL RESULTS Absolute Eos (auto) 0.1 0.0 - 0.7 x10 3/ul 03/21/2016 6:02 AM T [facility] HISTORICAL RESULTS Absolute Basos (auto) 0.0 0.0 - 0.2 x10 3/ul 03/21/2016 6:02 AM T [facility] HISTORICAL RESULTS 03/21/2016 5:24 AM CDT 03/21/2016 5:50 AM CDT us Kathryn Escobar MD LAB BLOOD ORDERABLES F inal Result [facility] HISTORICAL RESULTS * (ABNORMAL) Basic metabolic panel (03/21/2016 5:24 AM CDT) Sodium 136 135 - 145 mmol/L Potassium 5.0 3.3 - 5.1 mmol/L Chloride 97 96 - 108 mmol/L Carbon Dioxide 29 22 - 32 mmol/L Anion Gap 10 7 - 16 Glucose 111(H) 70 - 100 mg/dL BUN 16 8 - 23 mg/dL Creatinine 0.7 0.5 - 1.1 mg/dL Comment: NOTE: Estimated GFR (Cockroft-Gault) will NOT be calculated unless patient Height and Weight were entered. Also, Kidney Disease Stage (GFR) and Estimated GFR (Cockroft-Gault) will NOT be calculated if Creatinine result is <0.2. Kidney Disease Stage 90 mL/MIN 03/21/2016 6:21 AM [facility] [employer] HISTORICAL RESULTS Comment: NOTE; ??The GFR is an estimated value using the creatinine, sex, age, and race of the patient. THE ESTIMATED GFR IS VALIDATED FOR AGES 18-70 YEARS STAGE ?mL/Min ?DESCRIPTION ??1 ?90 mL/min or more ?Normal or elevated GFR ??2 ? 60-89 mL/min ?Mildly decreased GFR ??3 ? 30-59 mL/min ?Moderately decreased GFR ??4 ? 15-29 mL/min ?Severely decreased GFR ??5 ? <15 mL/min ? Kidney failure or on dialysis @ Est GFR (Cockcroft-G) 83 ml/MIN 03/21/2016 6:21 AM [facility] [employer] HISTORICAL RESULTS Calcium 8.2(L) 8.8 - 10.2 mg/dL 03/21/2016 6:21 AM T [facility] HISTOR[facility] RESULTS 03/21/2016 5:24 AM CDT 03/21/2016 5:50 AM CDT us Kathryn Escobar MD LAB BLOOD ORDERABLES F inal Result [facility] HISTORICAL RESULTS * (ABNORMAL) CBC with auto differential (03/20/2016 6:27 AM CDT) WBC 12.4(H) 4.6 - 10.2 x10 3/ul 03/20/2016 7:06 AM T [facility] [employer] HISTORICAL RESULTS RBC 3.78 3.76 - 4.80 x10 6/ul Hemoglobin 11.8 11.0 - 15.0 g/dl 03/20/2016 7:06 AM CDT [facility] HISTORICAL RESULTS Hct 36.9 33.0 - 43.0 % 03/20/2016 7:06 AM CDT [facility] HISTORICAL RESULTS MCV 97.6(H) 80.0 - 97.0 fl MCH 31.2 27.0 - 31.2 pg 03/20/2016 7:06 AM CDT [facility] HISTOR[facility] RESULTS MCHC 32.0 31.8 - 35.4 g/dl 03/20/2016 7:06 AM CDT [facility] [employer] [facility] HISTORICAL RESULTS RDW 13.5 11.6 - 14.8 % 03/20/2016 7:06 AM CDT [facility] HISTORICAL RESULTS Plt Count 204 124 - 400 x10 3/ul 03/20/2016 7:06 AM CDT [facility] HISTOR[facility] RESULTS MPV 11.1(H) 7.4 - 10.4 fl 03/20/2016 7:06 AM CDT [facility] HISTORICAL RESULTS Neut % 53.3 37.0 - 85.0 % 03/20/2016 7:06 AM CDT [facility] HISTOR[facility] RESULTS Immature Gran % 1.3 0.0 - 3.0 % 03/20/2016 7:06 AM CDT [facility] HISTORICAL RESULTS Lymph % 26.3 5.0 - 45.0 % 03/20/2016 7:06 AM CDT [facility] HISTORICAL RESULTS Radford % 18.3(H) 3.0 - 15.0 % Eos % 0.5 0.0 - 7.0 % 03/20/2016 7:06 AM CDT [facility] [employer] [facility] HISTORICAL RESULTS Baso % 0.3 0.0 - 2.0 % 03/20/2016 7:06 AM CDT [facility] HISTOR[facility] RESULTS Absolute Neuts (auto) 6.6 1.7 - 8.7 x10 3/ul 03/20/2016 7:06 AM CDT [facility] [employer] [facility] H[facility] RESULTS Immature Gran # 0.2 0.0 - 0.3 x10 3/ul 03/20/2016 7:06 AM T [facility] HISTORICAL RESULTS Absolute Lymphs (auto) 3.3 0.2 - 4.6 x10 3/ul 03/20/2016 7:06 AM T [facility] HISTORICAL RESULTS Absolute Monos (auto) 2.3(H) 0.1 - 1.5 x10 3/ul 03/20/2016 7:06 AM T [facility] HISTORICAL RESULTS Absolute Eos (auto) 0.1 0.0 - 0.7 x10 3/ul Absolute Basos (auto) 0.0 0.0 - 0.2 x10 3/ul 03/20/2016 6:27 AM CDT 03/20/2016 6:56 AM CDT us Kathryn Escobar MD LAB BLOOD ORDERABLES F inal Result [facility] HISTORICAL RESULTS * (ABNORMAL) Basic metabolic panel (03/20/2016 6:27 AM CDT) Sodium 135 135 - 145 mmol/L Potassium 5.4(H) 3.3 - 5.1 mmol/L Chloride 96 96 - 108 mmol/L Carbon Dioxide 27 22 - 32 mmol/L Anion Gap 12 7 - 16 Glucose 134(H) 70 - 100 mg/dL 03/20/2016 7:19 AM T [facility] HISTORICAL RESULTS BUN 30(H) 8 - 23 mg/dL Creatinine 1.2(H) 0.5 - 1.1 mg/dL 03/20/2016 7:19 AM T [facility] HISTORICAL RESULTS Comment: NOTE: Estimated GFR (Cockroft-Gault) will NOT be calculated unless patient Height and Weight were entered. Also, Kidney Disease Stage (GFR) and Estimated GFR (Cockroft-Gault) will NOT be calculated if Creatinine result is <0.2. Kidney Disease Stage 48 mL/MIN 03/20/2016 7:19 AM T [facility] HISTORICAL RESULTS Comment: NOTE; ??The GFR is an estimated value using the creatinine, sex, age, and race of the patient. THE ESTIMATED GFR IS VALIDATED FOR AGES 18-70 YEARS STAGE ?mL/Min ?DESCRIPTION ??1 ?90 mL/min or more ?Normal or elevated GFR ??2 ? 60-89 mL/min ?Mildly decreased GFR ??3 ? 30-59 mL/min ?Moderately decreased GFR ??4 ? 15-29 mL/min ?Severely decreased GFR ??5 ? <15 mL/min ? Kidney failure or on dialysis @ Est GFR (Cockcroft-G) 55 ml/MIN Calcium 8.4(L) 8.8 - 10.2 mg/dL 03/20/2016 7:19 AM T [facility] HISTORICAL RESULTS 03/20/2016 6:27 AM CDT 03/20/2016 6:56 AM CDT us Kathryn Escobar MD LAB BLOOD ORDERABLES F inal Result [facility] HISTORICAL RESULTS * Microbiology Specimen Report (Converted) (03/19/2016 9:50 PM CDT) 03/19/2016 9:50 PM CDT 03/19/2016 10:25 PM CDT Narrative [facility] HISTORICAL RESULTS - 03/19/2016 9:50 PM CDT Microbiology Specimen Report (Converted) SPECIMEN [id number] ?? COLLECTED: 2016-03-19 21:50:00 MM ?? REQ#: [id number] REQUESTING DR: Kathryn Escobar MD ?? SOURCE: URINE ?? SP DESC: CLEAN CATC --- PROCEDURE --- ?--- RESULT --- ?? CULTURE URINE ??(Final) ??- ??Performed at [facility] ?* NO GROWTH DAY 2 <1,000 CFU/ML - [facility] ? [address] [place] [address] ? [place] [address] ? Wilian Diggs MD Procedure Note 10/15/2018 Microbiology Specimen Report (Converted) SPECIMEN [id number] COLLECTED: 2016-03-19 21:50:00 MM REQ#:[id number] REQUESTING DR: Kathryn Escobar MD SOURCE: URINE SP DESC: CLEANCATC --- PROCEDURE --- --- RESULT --- CULTURE URINE (Final) - Performed at [facility] * NO GROWTH DAY 2 <1,000 CFU/[place] [address] Wilian Diggs MD Kathryn Escobar MD LAB BLOOD ORDERABLES F inal Result [facility] HISTORICAL RESULTS * (ABNORMAL) Urinalysis reflex to microscopic and culture (03/19/2016 9:50 PM CDT) Ur Collection Type CLEAN CATCH 03/19/2016 10:33 PM CDT [facility] HISTORICAL RESULTS Ur Culture Indicated? C&S INDICATED 03/19/2016 10:33 PM CDT [facility] HISTORICAL RESULTS Comment:Culture report to henry alarcon. Urine Color YELLOW YELLOW Urine Clarity CLEAR CLEAR Urine Glucose (UA) NORMAL NORMAL mg/dL Urine Bilirubin NEGATIVE NEGATIVE mg/dl Urine Ketones NEGATIVE NEGATIVE mg/dL Ur Specific [place] 1.025 1.005 - 1.025 Urine Blood NEGATIVE NEGATIVE mg/dl Urine pH 5.0 5.0 - 8.0 Urine Protein NEGATIVE NEGATIVE mg/dL Urine Urobilinogen NORMAL NORMAL mg/dL Urine Nitrite NEGATIVE NEGATIVE Ur Leukocyte Esterase 250(H) NEGATIVE Lizeth/ul Ur Microscopic Review Indicated or Ordered Urine RBC 1 0 - 2 /HPF Urine WBC 19 0 - 2 /HPF Urine Mucus RARE /LPF Ur Squamous Epith Cells Rare /HPF 03/19/2016 9:50 PM CDT 03/19/2016 10:25 PM T us Kathryn Ecsobar MD LAB MICROBIOLOGY - GEN ERAL ORDERABLES Final Result [facility] HISTORICAL RESULTS * (ABNORMAL) Basic metabolic panel (03/19/2016 3:35 PM CDT) [facility] Sodium 135 135 - 145 mmol/L 03/19/2016 4:16 PM T [facility] HISTORICAL RESULTS Potassium 5.9(H) 3.3 - 5.1 mmol/L 03/19/2016 4:16 PM T [facility] HISTORICAL RESULTS Chloride 98 96 - 108 mmol/L 03/19/2016 4:16 PM T [facility] HISTORICAL RESULTS Carbon Dioxide 25 22 - 32 mmol/L 03/19/2016 4:16 PM T [facility] HISTORICAL RESULTS Anion Gap 12 7 - 16 03/19/2016 4:16 PM T [facility] HISTORICAL RESULTS Glucose 158(H) 70 - 100 mg/dL 03/19/2016 4:16 PM T [facility] HISTORICAL RESULTS BUN 46(H) 8 - 23 mg/dL 03/19/2016 4:16 PM T [facility] HISTORICAL RESULTS Creatinine 1.9(H) 0.5 - 1.1 mg/dL 03/19/2016 4:16 PM T [facility] HISTORICAL RESULTS Comment: NOTE: Estimated GFR (Cockroft-Gault) will NOT be calculated unless patient Height and Weight were entered. Also, Kidney Disease Stage (GFR) and Estimated GFR (Cockroft-Gault) will NOT be calculated if Creatinine result is <0.2. Kidney Disease Stage 28 mL/MIN Comment: NOTE; ??The GFR is an estimated value using the creatinine, sex, age, and race of the patient. THE ESTIMATED GFR IS VALIDATED FOR AGES 18-70 YEARS STAGE ?mL/Min ?DESCRIPTION ??1 ?90 mL/min or more ?Normal or elevated GFR ??2 ? 60-89 mL/min ?Mildly decreased GFR ??3 ? 30-59 mL/min ?Moderately decreased GFR ??4 ? 15-29 mL/min ?Severely decreased GFR ??5 ? <15 mL/min ? Kidney failure or on dialysis @ Est GFR (Cockcroft-G) 35 ml/MIN 03/19/2016 4:16 PM CDT [facility] HISTORICAL RESULTS Calcium 7.9(L) 8.8 - 10.2 mg/dL 03/19/2016 4:16 PM CDT [facility] HISTORICAL RESULTS 03/19/2016 3:35 PM CDT 03/19/2016 3:42 PM CDT Narrative [facility] HISTORICAL RESULTS - 03/19/2016 4:16 PM CDT us Kathryn Escobar MD LAB BLOOD ORDERABLES F inal Result Performing Organization Address [facility] de Phone Number [facility] HISTORICAL RESULTS * Creatine kinase (CK), total (03/19/2016 9:03 AM CDT) Creatine Kinase 80 20 - 180 U/L 03/19/2016 11:00 AM CDT [facility] HISTORICAL RESULTS 03/19/2016 9:03 AM CDT 03/19/2016 9:08 AM CDT us Kathryn Escobar MD LAB BLOOD ORDERABLES F inal Result Performing Organization Address [facility] de Phone Number [facility] HISTORICAL RESULTS * (ABNORMAL) CBC with auto differential (03/19/2016 9:03 AM CDT) WBC 10.9(H) 4.6 - 10.2 x10 3/ul 03/19/2016 9:13 AM CDT [facility] HISTORICAL RESULTS RBC 3.99 3.76 - 4.80 x10 6/ul 03/19/2016 9:13 AM CDT [facility] HISTORICAL RESULTS Hemoglobin 12.5 11.0 - 15.0 g/dl 03/19/2016 9:13 AM [facility] HISTORICAL RESULTS Hct 38.7 33.0 - 43.0 % 03/19/2016 9:13 AM [facility] HISTORICAL RESULTS MCV 97.0 80.0 - 97.0 fl 03/19/2016 9:13 AM [facility] MCH 31.3(H) 27.0 - 31.2 pg 03/19/2016 9:13 AM [facility] MCHC 32.3 31.8 - 35.4 g/dl 03/19/2016 9:13 AM [facility] RESULTS RDW 13.4 11.6 - 14.8 % 03/19/2016 9:13 AM [facility] Plt Count 225 124 - 400 x10 3/ul 03/19/2016 9:13 AM [facility] MPV 11.1(H) 7.4 - 10.4 fl 03/19/2016 9:13 AM [facility] Neut % 62.8 37.0 - 85.0 % 03/19/2016 9:14 AM [facility] Comment:Results reviewed Immature Gran % 1.0 0.0 - 3.0 % 03/19/2016 9:13 AM [facility] Lymph % 22.8 5.0 - 45.0 % 03/19/2016 9:13 AM [facility]ULTS [place] % 12.5 3.0 - 15.0 % 03/19/2016 9:13 AM [facility] Eos % 0.5 0.0 - 7.0 % 03/19/2016 9:13 AM [facility] Baso % 0.4 0.0 - 2.0 % 03/19/2016 9:13 AM [facility] Absolute Neuts (auto) 6.9 1.7 - 8.7 x10 3/ul 03/19/2016 9:13 AM [facility] Immature Gran # 0.1 0.0 - 0.3 x10 3/ul 03/19/2016 9:13 AM [facility] Absolute Lymphs (auto) 2.5 0.2 - 4.6 x10 3/ul 03/19/2016 9:13 [facility] [place] [facility] Absolute Monos (auto) 1.4 0.1 - 1.5 x10 3/ul 03/19/2016 9:13 [facility] [place] [facility] Absolute Eos (auto) 0.1 0.0 - 0.7 x10 3/ul 03/19/2016 9:13 AM T [facility] HISTORICAL RESULTS Absolute Basos (auto) 0.0 0.0 - 0.2 x10 3/ul 03/19/2016 9:13 AM T [facility] HISTORICAL RESULTS 03/19/2016 9:03 AM CDT 03/19/2016 9:08 AM CDT us Kathryn Escobar MD LAB BLOOD ORDERABLES F inal Result [facility] HISTORICAL RESULTS * (ABNORMAL) Basic metabolic panel (03/19/2016 9:03 AM CDT) Sodium 138 135 - 145 mmol/L 03/19/2016 9:36 AM T [facility] HISTORICAL RESULTS Potassium 5.8(H) 3.3 - 5.1 mmol/L Chloride 98 96 - 108 mmol/L Carbon Dioxide 25 22 - 32 mmol/L Anion Gap 15 7 - 16 Glucose 157(H) 70 - 100 mg/dL 03/19/2016 9:36 AM T [facility] HISTORICAL RESULTS BUN 47(H) 8 - 23 mg/dL Creatinine 2.1(H) 0.5 - 1.1 mg/dL Comment: Results reviewed ?? NOTE: Estimated GFR (Cockroft-Gault) will NOT be calculated unless patient Height and Weight were entered. Also, Kidney Disease Stage (GFR) and Estimated GFR (Cockroft-Gault) will NOT be calculated if Creatinine result is <0.2. Kidney Disease Stage 25 mL/MIN 03/19/2016 9:36 AM [facility] Comment: NOTE; ??The GFR is an estimated value using the creatinine, sex, age, and race of the patient. THE ESTIMATED GFR IS VALIDATED FOR AGES 18-70 YEARS STAGE ?mL/Min ?DESCRIPTION ??1 ?90 mL/min or more ?Normal or elevated GFR ??2 ? 60-89 mL/min ?Mildly decreased GFR ??3 ? 30-59 mL/min ?Moderately decreased GFR ??4 ? 15-29 mL/min ?Severely decreased GFR ??5 ? <15 mL/min ? Kidney failure or on dialysis @ Est GFR (Cockcroft-G) 31 ml/MIN 03/19/2016 9:36 AM [facility] [employer] [facility]ULTS Calcium 8.3(L) 8.8 - 10.2 mg/dL 03/19/2016 9:36 AM [facility] 03/19/2016 9:03 AM CDT 03/19/2016 9:08 AM CDT us Kathryn Escobar MD LAB BLOOD ORDERABLES F inal Result [facility] [employer] HISTORICAL RESULTS * Hemoglobin A1c (03/19/2016 9:03 AM CDT) Hemoglobin A1c % 5.7 4.8 - 5.9 % 03/19/2016 9:31 AM T [facility] [employer] HISTORICAL RESULTS Comment: [place] [employer] recommends that the goal of therapy should be an A1C hemoglobin of <7%. Reevaluate the treatment regimen in patients with an A1C >8%. 03/19/2016 9:03 AM CDT 03/19/2016 9:08 AM CDT us Kathryn Escobar MD LAB BLOOD ORDERABLES F inal Result Performing Organization Address [facility] de Phone Number [facility] HISTORICAL RESULTS * Protime-INR (03/18/2016 8:18 PM CDT) Pathologist [facility] [place] PT 13.5 11.8 - 14.5 SECONDS 03/18/2016 8:39 PM CDT [facility] HISTORICAL RESULTS INR 1.02 0.01 - 5.99 03/18/2016 8:39 PM CDT [facility] HISTORICAL RESULTS Comment: Recommended Therapeutic range for Oral Anticoagulant Therapy No anti-coagulation therapy ? Normal Range: ?0.8-1.4 Anti-coagulation therapy ? Low intensity therapy ?2.0-3.0 ? High intensity therapy ?? 2.5-3.5 Critical Value ? Greater than or equal to 6.0 Patients should be monitored for serious bleeding. ?? 03/18/2016 8:18 PM CDT 03/18/2016 8:22 PM CDT us Kathleen Bowles MD LAB BLOOD ORDERABLES Fin al Result Performing Organization Address [facility] de Phone Number [facility] HISTORICAL RESULTS * (ABNORMAL) Comprehensive metabolic panel (03/18/2016 8:18 PM CDT) Sodium 134(L) 135 - 145 mmol/L 03/18/2016 8:54 PM CDT [facility] HISTORICAL RESULTS Potassium 5.1 3.3 - 5.1 mmol/L 03/18/2016 8:54 PM CDT [facility] HISTORICAL RESULTS Chloride 97 96 - 108 mmol/L Carbon Dioxide 25 22 - 32 mmol/L Anion Gap 12 7 - 16 Glucose 105(H) 70 - 100 mg/dL BUN 36(H) 8 - 23 mg/dL Creatinine 1.2(H) 0.5 - 1.1 mg/dL Comment: NOTE: Estimated GFR (Cockroft-Gault) will NOT be calculated unless patient Height and Weight were entered. Also, Kidney Disease Stage (GFR) and Estimated GFR (Cockroft-Gault) will NOT be calculated if Creatinine result is <0.2. Kidney Disease Stage 48 mL/MIN Comment: NOTE; ??The GFR is an estimated value using the creatinine, sex, age, and race of the patient. THE ESTIMATED GFR IS VALIDATED FOR AGES 18-70 YEARS STAGE ?mL/Min ?DESCRIPTION ??1 ?90 mL/min or more ?Normal or elevated GFR ??2 ? 60-89 mL/min ?Mildly decreased GFR ??3 ? 30-59 mL/min ?Moderately decreased GFR ??4 ? 15-29 mL/min ?Severely decreased GFR ??5 ? <15 mL/min ? Kidney failure or on dialysis @ Est GFR (Cockcroft-G) 55 ml/MIN Calcium 8.4(L) 8.8 - 10.2 mg/dL 03/18/2016 8:54 PM T [facility] HISTORICAL RESULTS Total Protein 6.4 6.4 - 8.3 g/dL 03/18/2016 8:54 PM T [facility] HISTORICAL RESULTS Albumin 4.0 3.5 - 5.2 g/dL 03/18/2016 8:54 PM T [facility] HISTORICAL RESULTS Globulin 2.4 2.3 - 3.5 gm/dL 03/18/2016 8:54 PM T [facility] HISTORICAL RESULTS Albumin/Globulin Ratio 1.7 1.1 - 1.8 03/18/2016 8:54 PM T [facility] HISTORICAL RESULTS Total Bilirubin 0.3 0.0 - 1.2 mg/dL 03/18/2016 8:54 PM T [facility] HISTORICAL RESULTS AST 25 0 - 32 U/L 03/18/2016 8:54 PM T [facility] HISTORICAL RESULTS ALT 28 0 - 33 U/L 03/18/2016 8:54 PM T [facility] HISTORICAL RESULTS Alkaline Phosphatase 51 35 - 104 U/L 03/18/2016 8:18 PM CDT 03/18/2016 8:22 PM CDT us Kathleen Bowles MD LAB BLOOD ORDERABLES Fin al Result [facility] HISTORICAL RESULTS * (ABNORMAL) CBC with auto differential (03/18/2016 8:18 PM CDT) WBC 10.2 4.6 - 10.2 x10 3/ul 03/18/2016 8:24 PM T [facility] HISTORICAL RESULTS RBC 3.99 3.76 - 4.80 x10 6/ul Hemoglobin 12.6 11.0 - 15.0 g/dl 03/18/2016 8:24 PM T [facility] HISTORICAL RESULTS Hct 37.7 33.0 - 43.0 % 03/18/2016 8:24 PM T [facility] HISTORICAL RESULTS MCV 94.5 80.0 - 97.0 fl MCH 31.6(H) 27.0 - 31.2 pg MCHC 33.4 31.8 - 35.4 g/dl RDW 13.2 11.6 - 14.8 % Plt Count 216 124 - 400 x10 3/ul MPV 11.2(H) 7.4 - 10.4 fl Neut % 43.6 37.0 - 85.0 % Immature Gran % 1.2 0.0 - 3.0 % Lymph % 41.0 5.0 - 45.0 % [place] % 11.3 3.0 - 15.0 % Eos % 2.2 0.0 - 7.0 % Baso % 0.7 0.0 - 2.0 % Absolute Neuts (auto) 4.5 1.7 - 8.7 x10 3/ul Immature Gran # 0.1 0.0 - 0.3 x10 3/ul Absolute Lymphs (auto) 4.2 0.2 - 4.6 x10 3/ul Absolute Monos (auto) 1.2 0.1 - 1.5 x10 3/ul 03/18/2016 8:24 PM CDT [facility] HISTORICAL RESULTS Absolute Eos (auto) 0.2 0.0 - 0.7 x10 3/ul 03/18/2016 8:24 PM CDT [facility] HISTORICAL RESULTS Absolute Basos (auto) 0.1 0.0 - 0.2 x10 3/ul 03/18/2016 8:24 PM CDT [facility] HISTORICAL RESULTS 03/18/2016 8:18 PM CDT 03/18/2016 8:22 PM CDT us Kathleen Bowles MD LAB BLOOD ORDERABLES Fin al Result [facility] HISTORICAL RESULTS * XR Ankle Left 3 or More Views (03/18/2016 12:00 AM CDT) Anatomical Region Laterality Modality Lower Extremities, Ankle Left Radiogr aphic Imaging 03/18/2016 Impressions 03/18/2016 6:37 PM CDT ?? 1. ??Comminuted fracture of the distal fibula with 0.3 cm of posterior displacement and no abnormal angulation. 2. ??Fracture of the medial malleolus which is displaced laterally 0.6 cm. ??The talus is subluxed laterally 0.6 cm as well with respect to the tibia. THIS IS AN ELECTRONICALLY VERIFIED REPORT 03/18/2016 6:34 PM: ??Tor Byrnes M.D. ?? Tor Byrnes M.D. AT:at 06:34 PM 06:34 PM [facility] [EOD] Narrative 03/18/2016 6:37 PM CDT EXAMINATION: ??Three views of the left ankle DATE: 03/18/2016 COMPARISON: ??None HISTORY: ??Left ankle pain after fall today. ??[place] a pop in the ankle. ?? Anteromedial pain to the tibia and fibula extending to the ankle TECHNIQUE: ??AP, lateral, oblique views of the left ankle were obtained. FINDINGS: ?? There is a comminuted fracture of the distal fibular shaft. ??No significant angulation is noted. ??There is 0.3 cm of posterior displacement. ??There is a fracture of the medial malleolus. ??The fracture fragment remains aligned with the talus. ??The fracture fragment is displaced laterally approximately 0.6 cm. Talus displaces laterally with the fracture fragment. ??No discrete involvement of the posterior malleolus is seen. Procedure Note Provider, MD Lucille - 12/10/2020 EXAMINATION: Three views of the left ankle DATE: 03/18/2016 COMPARISON: None HISTORY: Left ankle pain after fall today. [place] a pop in the ankle. Anteromedial pain to the tibia and fibula extending to the ankle TECHNIQUE: AP, lateral, oblique views of the left ankle were obtained. FINDINGS: There is a comminuted fracture of the distal fibular shaft. Nosignificant angulation is noted. There is 0.3 cm of posterior displacement. There crystal fracture of the medial malleolus. The fracture fragment remains alignedwith the talus. The fracture fragment is displaced laterally approximately 0.6cm. Talus displaces laterally with the fracture fragment. No discrete involvement of the posterior malleolus is seen. IMPRESSION: 1. Comminuted fracture of the distal fibula with 0.3 cm of posterior displacement and no abnormal angulation. 2. Fracture of the medial malleolus which is displaced laterally 0.6 cm.The talus is subluxed laterally 0.6 cm as well with respect to the tibia. THIS IS AN ELECTRONICALLY VERIFIED REPORT 03/18/2016 6:34 PM: Tor Byrnes M.D. Tor Byrnes M.D. AT:at 06:34 PM 06:34 PM [facility] [EOD] us Kathleen Bowles MD IMG XR PROCEDURES Final Result * XR Tibia Fibula Left 2 Views (03/18/2016 12:00 AM CDT) Anatomical Region Laterality Modality Lower Extremities, Lower Leg Left Rad iographic Imaging 03/18/2016 Impressions 03/18/2016 6:35 PM CDT ?? 1. ??Lesion within the midportion of the tibia measuring around 1.9 cm in size. Adjacent periosteal reaction is noted. ??This could represent conversion of an enchondroma to chondrosarcoma. ??Potentially the periosteal reaction could be chronic or related to a prior fracture. ??Comparison with any prior outside radiographs is recommended. ??Consider MRI with and without contrast in follow up to evaluate for aggressive features. 2. ??Fractures at the ankle. ??Please see separately dictated ankle radiographs. THIS IS AN ELECTRONICALLY VERIFIED REPORT 03/18/2016 6:32 PM: ??Tor Byrnes M.D. ?? Tor Byrnes M.D. AT:at 06:32 PM 06:32 PM [facility] [EOD] Narrative 03/18/2016 6:35 PM CDT EXAMINATION: ??2 Views of the left tibia and fibula. DATE: ??03/18/2016 COMPARISON: ??None. HISTORY: ??Pain in the mid tibia and fibula anteromedially after a fall today. TECHNIQUE: ??AP and lateral radiographs of the left tibia and fibula were obtained. FINDINGS: Fracture the medial malleolus, mildly comminuted fracture of the distal fibula are noted. ??Please see separately dictated ankle radiographs. ??Sclerotic density within the midshaft of the tibia is noted. ??There is some adjacent periosteal elevation medially. ??No lucent fracture line is seen. ??No definite scalloping of the underlying medial cortex of the tibia is seen. Procedure Note Provider, MD Lucille - 12/10/2020 EXAMINATION: 2 Views of the left tibia and fibula. DATE: 03/18/2016 COMPARISON: None. HISTORY: Pain in the mid tibia and fibula anteromedially after a falltoday. TECHNIQUE: AP and lateral radiographs of the left tibia and fibula were obtained. FINDINGS: Fracture the medial malleolus, mildly comminuted fracture of the distalfibula are noted. Please see separately dictated ankle radiographs. Sclerotic density within the midshaft of the tibia is noted. There is some adjacent periosteal elevation medially. No lucent fracture line is seen. Nodefinite scalloping of the underlying medial cortex of the tibia is seen. IMPRESSION: 1. Lesion within the midportion of the tibia measuring around 1.9 cm insize. Adjacent periosteal reaction is noted. This could represent conversionof an enchondroma to chondrosarcoma. Potentially the periosteal reaction couldbe chronic or related to a prior fracture. Comparison with any prior outside radiographs is recommended. Consider MRI with and without contrast infollow up to evaluate for aggressive features. 2. Fractures at the ankle. Please see separately dictated ankleradiographs. THIS IS AN ELECTRONICALLY VERIFIED REPORT 03/18/2016 6:32 PM: Tor Byrnes M.D. Tor Byrnes M.D. AT:at 06:32 PM 06:32 PM [facility] [EOD] us Kathleen Bowles MD IMG XR PROCEDURES Final Result * XR Knee Left 1 or 2 Views (03/18/2016 12:00 AM CDT) Anatomical Region Laterality Modality Lower Extremities, Knee Left Radiogra [facility] Imaging 03/18/2016 Impressions 03/18/2016 6:32 PM CDT ?? 1. ??No evidence of fracture. 2. ??Postsurgical changes of total right knee arthroplasty without complication. THIS IS AN ELECTRONICALLY VERIFIED REPORT 03/18/2016 6:29 PM: ??Tor Byrnes M.D. ?? Tor Byrnes M.D. AT:at 06:29 PM 06:29 PM [facility] [EOD] Narrative 03/18/2016 6:32 PM CDT EXAMINATION: ??2 Views of the left knee. DATE: ??03/18/2016 COMPARISON: ??None. HISTORY: ??Pain in left knee after fall today. ??[place] a pop. ??Anterior and medial pain extending from the tibia/fibular to the ankle. TECHNIQUE: ??AP and lateral radiographs of the left knee were obtained. FINDINGS: No significant fullness in the suprapatellar space is noted. ??Postsurgical changes of total knee arthroplasty are present. ??Metallic components are in customary positioning. ??No significant lucency is seen surrounding metallic components to suggest loosening. ??No fracture is identified. Procedure Note Provider, MD Lucille - 12/10/2020 EXAMINATION: 2 Views of the left knee. DATE: 03/18/2016 COMPARISON: None. HISTORY: Pain in left knee after fall today. [place] a pop. Anterior and medial pain extending from the tibia/fibular to the ankle. TECHNIQUE: AP and lateral radiographs of the left knee were obtained. FINDINGS: No significant fullness in the suprapatellar space is noted. Postsurgical changes of total knee arthroplasty are present. Metallic components arein customary positioning. No significant lucency is seen surroundingmetallic components to suggest loosening. No fracture is identified. IMPRESSION: 1. No evidence of fracture. 2. Postsurgical changes of total right knee arthroplasty withoutcomplication. THIS IS AN ELECTRONICALLY VERIFIED REPORT 03/18/2016 6:29 PM: Tor Byrnes M.D. Tor Byrnes M.D. AT:at 06:29 PM 06:29 PM [facility] [EOD] us Kathleen Bowles MD IMG XR PROCEDURES Final Result documented in this encounter Visit Diagnoses Diagnosis Closed displaced bimalleolar fracture of left lower leg Acute kidney failure (HCC) Acute kidney failure, unspecified Hypo-osmolality and hyponatremia Body mass index (BMI) of 40.0-44.9 in adult (HCC) Essential (primary) hypertension Unspecified essential hypertension Hyperkalemia Hyperpotassemia Dehydration Hypotension Unspecified hypotension Zoster without complications Primary osteoarthritis of shoulder Primary localized osteoarthrosis, shoulder region Obesity Obesity, unspecified Epilepsy without status epilepticus, not intractable (HCC) Fall on same level Unspecified fall Kitchen of single-family private house as place of occurrence of external cause 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
--- OUTSIDE RECORDS SUMMARY | 2024-08-13 05:04 | XMS_ITS | Encounter Summary ---
Author Organization [facility] Address [address] [place] [address] Care Team Providers Care Nurse Practitioner Home Assessments Name Role Phone Unavailable Primary Care Provider Unavailabl e Encounter Details Date Type Department Care Team (Latest Contact Info) Description 04/07/2016 11:32 AM CDT Hospital Encounter [facility] OP Peep Copeland MD [address] [address] Closed displaced bimalleolar fracture of left lower leg with routine healing; Other specified postprocedural state; Pain in right shoulder Social History Tobacco Use Types Packs/Day Years [...] Name Priority Date/Time Associated Diagnosis Comments XR SHOULDER RIGHT 2 OR MORE VIEWS Routine 04/07/2016 11:34 AM CDT XR ANKLE LEFT 3 OR MORE VIEWS Routine 04/07/2016 12:00 AM CDT documented in this encounter Results * XR Shoulder Right 2 or More Views (04/07/2016 11:34 AM CDT) Anatomical Region Laterality Modality Upper Extremities, Shoulder Right Radi ographic Imaging 04/07/2016 11:3 4 AM CDT Impressions 04/07/2016 1:38 PM CDT Normal right shoulder. THIS IS AN ELECTRONICALLY VERIFIED REPORT 04/07/2016 1:35 PM: ??Pepe Copeland M.D. ?? Pepe Copeland M.D. SH: 01:35 PM 01:35 PM [EOD] Narrative 04/07/2016 1:38 PM CDT EXAMINATION: ??2 views right shoulder REASON FOR EXAM: ??Right shoulder pain. FINDINGS: ??Internal and external rotation AP x-rays of the right shoulder are reviewed. ??These images reveal normal glenohumeral relationship. ??There are no fractures or dislocations seen. ??There is no abnormal bone destruction or production noted. ??The imaged ribs show no abnormality. ??The humerus, scapula and clavicle are unremarkable. Procedure Note Provider, MD Lucille - 12/10/2020 EXAMINATION: 2 views right shoulder REASON FOR EXAM: Right shoulder pain. FINDINGS: Internal and external rotation AP x-rays of the right shoulderare reviewed. These images reveal normal glenohumeral relationship. Thereare no fractures or dislocations seen. There is no abnormal bone destruction or production noted. The imaged ribs show no abnormality. The humerus,scapula and clavicle are unremarkable. IMPRESSION: Normal right shoulder. THIS IS AN ELECTRONICALLY VERIFIED REPORT 04/07/2016 1:35 PM: Pepe Copeland M.D. Pepe Copeland M.D. : 01:35 PM 01:35 PM [EOD] us Pepe Copeland MD IMG XR PROCEDURES Final Resu lt * XR Ankle Left 3 or More Views (04/07/2016 12:00 AM CDT) Anatomical Region Laterality Modality Lower Extremities, Ankle Left Radiogr aphic Imaging 04/07/2016 Impressions 04/07/2016 1:37 PM CDT Interval fixation of the previously identified left bimalleolar ankle fracture with intact hardware. THIS IS AN ELECTRONICALLY VERIFIED REPORT 04/07/2016 1:33 PM: ??Pepe Copeland M.D. ?? Pepe Copeland M.D. : 01:33 PM 01:33 PM [EOD] Narrative 04/07/2016 1:37 PM CDT EXAMINATION: ??AP, lateral and mortise views left ankle REASON FOR EXAM: ??Postop fracture FINDINGS: ??3 views of the left ankle are reviewed. ??These images reveal interval surgical fixation of the previously identified by malleolar fracture. The tibiotalar relationship has no return to normal. ??The fractures are reduced anatomically and secured with internal fixation. ??Skin vishal are present both medially and laterally. ??Overall alignment of the tibia, fibula and ankle mortise is anatomic. Procedure Note Provider, MD Lucille - 12/10/2020 EXAMINATION: AP, lateral and mortise views left ankle REASON FOR EXAM: Postop fracture FINDINGS: 3 views of the left ankle are reviewed. These images reveal interval surgical fixation of the previously identified by malleolarfracture. The tibiotalar relationship has no return to normal. The fractures are reduced anatomically and secured with internal fixation. Skin vishal are present both medially and laterally. Overall alignment of the tibia,fibula and ankle mortise is anatomic. IMPRESSION: Interval fixation of the previously identified left bimalleolar ankle fracture with intact hardware. THIS IS AN ELECTRONICALLY VERIFIED REPORT 04/07/2016 1:33 PM: Pepe Copeland M.D. Pepe Copeland M.D. SH:sh 01:33 PM 01:33 PM [EOD] us Pepe Copeland MD IMG XR PROCEDURES Final Resu lt documented in this encounter Visit Diagnoses Diagnosis Closed displaced bimalleolar fracture of left lower leg with routine healing Other specified postprocedural state Pain in right shoulder documented in this encounter
--- OUTSIDE RECORDS SUMMARY | 2024-08-13 05:04 | XMS_ITS | Encounter Summary ---
Author Organization [facility] Healthcare Address [address] [place] [address] Care Team Providers Care Pony Ride Operator Name Role Phone Unavailable Primary Care Provider Unavailabl e Encounter Details Date Type Department Care Team (Latest Contact Info) Description 01/23/2014 1:50 PM CDT Hospital Encounter [facility] OP Dean Stephenson MD [address] [facility] [address] [place] [address] Other dyspnea and respiratory abnormality Social History Tobacco Use Types Packs/Day Years [...] Procedure Name Priority Date/Time Associated Diagnosis Comments CARDIOPULMONARY DIAGNOSTICS REPORT 03/16/2014 12:00 AM CDT CARDIOPULMONARY DIAGNOSTICS REPORT 01/25/2014 12:00 AM CDT BLOOD GAS (INCLUDES COOX) Routine 01/23/2014 3:07 PM CDT XR CHEST PA LATERAL 2 VIEWS Routine 01/23/2014 1:52 PM CDT documented in this encounter Results * CARDIOPULMONARY DIAGNOSTICS REPORT (03/16/2014 12:00 AM CDT) Narrative 03/16/2014 12:00 AM CDT Ordered by an unspecified provider. Historical Provider NURSING COMMUNICATION Myron encinas Result * CARDIOPULMONARY DIAGNOSTICS REPORT (01/25/2014 12:00 AM CDT) Narrative 01/25/2014 12:00 AM CDT Ordered by an unspecified provider. Historical Provider NURSING COMMUNICATION Myron encinas Result * (ABNORMAL) Blood gas (includes COOX) (01/23/2014 3:07 PM CDT) Specimen Type ARTERIAL 01/23/2014 3:10 PM CDT [facility] HISTORICAL RESULTS Puncture Site RR 01/23/2014 3:10 PM CDT [facility] HISTORICAL RESULTS Patient Temperature 37 C 01/23 3:10 PM CDT [facility] HISTORICAL RESULTS pH 7.423 7.350 - 7.450 01/23/2014 3:10 PM CDT [facility] HISTORICAL RESULTS pCO2 47.2(H) 34.0 - 45.0 mmHg 01/23/2014 3:10 PM CDT [facility] HISTORICAL RESULTS pO2 75.2(L) 79.0 - 87.0 mmHg 01/23/2014 3:10 PM CDT [facility] HISTORICAL RESULTS HCO3 30.3(H) 22.0 - 26.0 mmol/L 01/23/2014 3:10 PM CDT [facility] HISTORICAL RESULTS Total CO2 31.7(H) 26.0 - 28.0 mmol/L 01/23/2014 3:10 PM CDT [facility] HISTORICAL RESULTS Base Excess 5.5(H) -2.0 - 2.0 mmol/L Hemoglobin 11.8(L) 12.0 - 16.0 g/dL O2 Saturation 92.9(L) >=95.0 % ABG Carboxyhemoglobin 1.3 <=3.0 % ABG Methemoglobin 0.9 0.4 - 1.5 % ABG O2 Content 15.5(L) 17.6 - 24.3 Vol % A-a O2 Difference 12.2(H) <=10.0 014 3:10 PM T [facility] HISTORICAL RESULTS a/A Ratio 0.9 >=0.8 FiO2 21.0 % BG Specimen Comment OP 01/23 3:10 PM T [facility] HISTORICAL RESULTS [employer] BLOOD GAS COMMENTS ABG on RA for PFT 01/23/2014 3:07 PM CDT 01/23/2014 3:07 PM CDT us Dean Stephenson MD LAB BLOOD ORDERABLES Ellyn l Result [facility] HISTORICAL RESULTS * XR Chest Pa Lateral 2 Views (01/23/2014 1:52 PM CDT) Anatomical Region Laterality Modality Body, Chest N/A Radiographic Meera ging 01/23/2014 1:52 PM CDT Impressions 01/23/2014 2:49 PM CDT No acute cardiopulmonary process identified. THIS IS AN ELECTRONICALLY VERIFIED REPORT 01/23/2014 2:46 PM: ??Nabeel Garcia M.D. Laila Serrano:[email or web address] 02:46 PM 02:46 PM [facility] [EOD] Narrative 01/23/2014 2:49 PM CDT RADIOLOGIC EXAMINATION(S): CR CHEST 2V CLINICAL HISTORY: ??Dyspnea COMPARISON: ??Chest radiograph dated December 20, 2029 FINDINGS: PA and lateral view of the chest are reviewed. The cardiac silhouette is within normal limits. There is mild calcification in the aortic arch. The lung quezada are clear. Soft tissue and osseous structures are stable. Procedure Note Provider, MD Lucille - 12/10/2020 RADIOLOGIC EXAMINATION(S): CR CHEST 2V CLINICAL HISTORY: Dyspnea COMPARISON: Chest radiograph dated December 20, 2029 FINDINGS: PA and lateral view of the chest are reviewed. The cardiac silhouette is within normal limits. There is mildcalcification in the aortic arch. The lung quezada are clear. Soft tissue and osseous structures are stable. IMPRESSION: No acute cardiopulmonary process identified. THIS IS AN ELECTRONICALLY VERIFIED REPORT 01/23/2014 2:46 PM: Nabeel Garcia M.D. Laila Serrano:jeremi 02:46 PM 02:46 PM [facility] [EOD] Dean Stephenson MD IMG XR PROCEDURES Final R esult documented in this encounter Visit Diagnoses Diagnosis Other dyspnea and respiratory abnormality documented in this encounter
--- OUTSIDE RECORDS SUMMARY | 2024-08-13 05:04 | XMS_ITS | Encounter Summary ---
Author Organization [facility] Healthcare Address [address] [place] [address] Care Team Providers Care Batcher Operator Name Role Phone Unavailable Primary Care Provider Unavailabl e Encounter Details Date Type Department Care Team (Latest Contact Info) Description 02/11/2017 1:46 PM CDT - 02/11/2017 11:59 PM CDT Hospital Encounter [facility] OP INTERIM No, Physician Discharge Disposition: Discharge to home or self [...] 12/08/2011 06/29/2019 documented as of this encounter Discharge Disposition Disposition Code Departure Means Destination Discharge to home or self care documented in this encounter Plan of Treatment Not on file documented as of this encounter Procedures Procedure Name Priority Date/Time Associated Diagnosis Comments URINALYSIS AND REFLEX TO MICROSCOPIC Routine 02/11/2017 1:46 PM CDT URINALYSIS, MICROSCOPIC ONLY Routine 02/11/2017 1:46 PM CDT DISCHARGE LABORATORY CUMULATIVE REPORT 02/11/2017 12:00 AM CDT documented in this encounter Results * (ABNORMAL) Urinalysis, microscopic only (02/11/2017 1:46 PM CDT) RBC, ur >50(H) 0 - 3 /HPF [facility] WBC, ur >50(H) 0 - 5 /HPF [facility] Bacteria, ur 4+ [facility] Epithelial cells, renal, ur 0 0 - 0 /HPF [facility] Epithelial cells, squamous, ur 4 /LPF [facility] Mucus, ur Present [facility] Urine 02/11/2017 1:46 PM CDT 02/11/2017 1:47 PM CDT us Notinfile Unknown LAB URINE ORDERABLES Final Res ult [facility] [id number] Department [place] [address] * (ABNORMAL) Urinalysis reflex to microscopic (02/11/2017 1:46 PM CDT) Color, ur Yellow [facility] Clarity, ur Cloudy [facility] Specific gravity, ur 1.012 1.001 - 1.033 [facility] pH, ur 8.0 5.0 - 8.0 [facility] Protein, ur ql 2+(A) Negative [facility] Glucose, ur ql Negative Negative [facility] Ketones, ur Negative Negative [facility] Bilirubin, ur Negative Negative [facility] Blood, ur 3+(A) Negative [facility] Urobilinogen, ur <2.0 <2.0 [facility] Nitrites, ur Negative Negative [facility] Leukocyte esterase, ur 4+(A) Negative [facility] Urine 02/11/2017 1:46 PM CDT 02/11/2017 1:47 PM CDT us Notinfile Unknown LAB URINE ORDERABLES Final Res ult [facility] [id number] [address] Department [place] [address] * DISCHARGE LABORATORY CUMULATIVE REPORT (02/11/2017 12:00 AM CDT) Narrative 02/11/2017 12:00 AM CDT Ordered by an unspecified provider. Historical Provider LAB BLOOD ORDERABLES Ellyn l Result documented in this encounter Visit Diagnoses Not on filedocumented in this encounter
--- OUTSIDE RECORDS SUMMARY | 2024-08-13 05:04 | XMS_ITS | Encounter Summary ---
Author Organization [facility] Healthcare Address [address] [place] [address] Care Team Providers Care Landscape Supervisor Name Role Phone Unavailable Primary Care Provider Unavailabl e Encounter Details Date Type Department Care Team (Latest Contact Info) Description 11/04/2012 10:42 AM CDT Hospital Encounter [facility] Ariela Maldonado MD [address] [place] [address] Dysphagia; Esophageal reflux; Atrophic gastritis; Other specified gastritis; Benign neoplasm of stomach Social History Tobacco Use Types Packs/Day Years [...] as of this encounter Visit Diagnoses Diagnosis Dysphagia Esophageal reflux Atrophic gastritis Other specified gastritis Benign neoplasm of stomach documented in this encounter
--- OUTSIDE RECORDS SUMMARY | 2024-08-13 05:04 | XMS_ITS | Encounter Summary ---
Author Organization [facility] Healthcare Address [address] [place] [address] Care Team Providers Care Patient Services Representative Name Role Phone Unavailable Primary Care Provider Unavailabl e Encounter Details Date Type Department Care Team (Latest Contact Info) Description 12/03/2017 12:12 PM CDT - 12/03/2017 2:58 PM CDT Hospital Encounter [facility] OP JoseAriela MD [address] [place] [address] Benign neoplasm of stomach; Gastritis without bleeding; Abdominal pain; Dysphagia; Esophageal obstruction; Hyperlipidemia; Essential (primary) hypertension; Uncomplicated asthma; Sleep apnea Social History Tobacco Use Types Packs/Day Years [...] Reading Time Taken Comments Blood Pressure 148/74 12/02/2017 3:25 PM CDT Pulse 66 12/02/2017 3:25 PM CDT Temperature 36.3 ??C (97.4 ??F) 12/02/2017 3:25 PM CD T Respiratory Rate - - Oxygen Saturation 96% 12/02/2017 3:25 PM CDT Inhaled Oxygen Concentration - - Weight 91.6 kg (202 lb) 12/02/2017 3:25 PM CDT Height 160 cm (5' 3 ) 12/02/2017 3:25 PM CDT Body Mass Index 35.78 12/02/2017 3:25 PM CDT documented in this encounter Medications at Time of Discharge AMLODIPINE BESYLATE, BULK, MISC Take 10 mg by mouth every morning 12/08/2011 06/29/2019 cloNIDine (CATAPRES) 0.2 mg tablet Take 0.2 mg by mouth 2 (two) times a day 12/08/2011 06/29/2019 docusate sodium (COLACE) 100 mg capsule Take 100 mg by mouth nightly 11/16/2017 06/29/2019 estradiol (ESTRACE) 1 mg tablet Take 0.5 mg by mouth every morning Take one tablet daily for 21 days and then stop for 7 days 11/16/2017 06/29/2019 famciclovir (FAMVIR) 250 mg tablet Take 250 mg by mouth 2 (two) times a day 12/08/2011 06/29/2019 primidone (MYSOLINE) 50 mg tablet Take 50 mg by mouth 2 (two) times a day 11/16/2017 06/29/2019 documented as of this encounter Plan of Treatment Not on file documented as of this encounter Procedures Procedure Name Priority Date/Time Associated Diagnosis Comments SCAN - PATHOLOGY 12/06/2017 12:0 0 AM CDT documented in this encounter Results * SCAN - PATHOLOGY (12/06/2017 12:00 AM CDT) Narrative 12/06/2017 12:00 AM CDT Ordered by an unspecified provider. us Historical Provider Final Res ult documented in this encounter Visit Diagnoses Diagnosis Benign neoplasm of stomach Gastritis without bleeding Abdominal pain Abdominal pain, unspecified site Dysphagia Esophageal obstruction Stricture and stenosis of esophagus Hyperlipidemia Other and unspecified hyperlipidemia Essential (primary) hypertension Unspecified essential hypertension Uncomplicated asthma Sleep apnea Unspecified sleep apnea documented in this encounter
--- OUTSIDE RECORDS SUMMARY | 2024-08-13 05:04 | XMS_ITS | Encounter Summary ---
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 Name Role Phone Unavailable Primary Care Provider Unavailabl e Encounter Details Date Type Department Care Team (Late st Contact Info) Description 11/05/2014 11:15 AM CDT - 07/25/2015 9:35 PM ADVERTISEMENT DISTRIBUTOR Hospital Encounter [facility] OP Dean Stephenson MD [address] [facility] [address] [place] [address] Social History Tobacco Use Types Packs/Day Years [...] - Inhaled Oxygen Concentration - - Weight 95.7 kg (211 lb) 08/13/2014 12:03 PM ADVERTISEMENT DISTRIBUTOR Height - - Body Mass Index 36.22 11/04/2012 12:44 PM CDT documented in this encounter Medications [...]
--- OUTSIDE RECORDS SUMMARY | 2024-08-13 05:04 | XMS_ITS | Encounter Summary ---
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 Name Role Phone Unavailable Primary Care Provider Unavailabl e Encounter Details Date Type Department Care Team (Latest Contact Info) Description 11/16/2017 12:33 AM CDT - 11/16/2017 4:44 AM CDT Hospital Encounter [facility] Suha Agosto MD [address] [place] [address] Calculus of bile duct without cholangitis or cholecystitis without obstruction; Urinary tract infection; Essential (primary) hypertension; Allergy status to other drugs, medicaments and biological substances status; Latex allergy status; Allergy status to sulfonamides; Allergy status to analgesic agent; Other halfway (current) drug therapy Social History Tobacco Use Types Packs/Day Years Used Date Smoking Tobacco: Never Assessed Comments Unknown Sex and Gender Information Value Date Recorded Sex Assigned at Not on file Legal Sex Female 10:28 AM CDT Gender Identity Female 01/30/2020 10:55 AM CDT Sexual Orientation Not on file documented as of this encounter Last Filed Vital Signs Vital Sign Reading Time Taken Comments Blood Pressure 159/75 11/16/2017 12:39 AM CDT Pulse 67 11/16/2017 12:39 AM CDT Temperature 37.1 ??C (98.7 ??F) 11/16/2017 12:39 AM C DT Respiratory Rate - - Oxygen Saturation 96% 11/16/2017 12:39 AM CDT Inhaled Oxygen Concentration - - Weight 98.4 kg (217 lb) 11/16/2017 12:39 AM CDT Height 160 cm (5' 3 ) 11/16/2017 12:39 AM CDT Body Mass Index 38.44 11/16/2017 12:39 AM CDT documented in this encounter Medications [...] Procedure Name Priority Date/Time Associated Diagnosis Comments MICROBIOLOGY SPECIMEN REPORT (CONVERTED) Routine 11/16/2017 2:00 AM CDT URINALYSIS, MACRO AND MICRO Routine 11/16/2017 2:00 AM CDT CBC WITH AUTO DIFFERENTIAL Routine 11/16/2017 1:21 AM CDT LIPASE Routine 11/16/2017 1:21 AM CDT COMPREHENSIVE METABOLIC PANEL Routine 11/16/2017 1:21 AM CDT XR CHEST 1 VIEW Routine 11/16/2017 12:[address] ABDOMEN PELVIS WO CONTRAST Routine 11/16/2017 12:00 AM CDT documented in this encounter Results * Microbiology Specimen Report (Converted) (11/16/2017 2:00 AM CDT) 11/16/2017 2:00 AM CDT 11/16/2017 3:43 AM CDT Narrative [facility] HISTORICAL RESULTS - 11/16/2017 2:00 AM CDT Microbiology Specimen Report (Converted) SPECIMEN [id number] ?? COLLECTED: 2017-11-16 02:00:00 ?? REQ#: [id number] REQUESTING DR: Sergei Olmstead ?? SOURCE: URINE ?? SP DESC: CLEAN CATC COMMENT: Collected By pb ? Urine collection method Clean catch ? Indication(s) for ordering ?Pain-pelv/flank/suprapubc ?? --- PROCEDURE --- ?--- RESULT --- ?? CULTURE URINE ??(Final) ??- ??Performed at [facility] ?* COLONY COUNT: 50,000 CFU/ml ?* MIXED GRAM POSITIVE ORGANISMS ?? * Organism 1 - KLEB PNEUMONIAE SSP PNEUMONIAE [KLE PNEUMO] ?* COLONY COUNT: >100,000 CFU/ml ?* SEE SUSCEPTIBILITY REPORT BELOW ? [KLE PNEUMO] ? M.I.C. ?RX AMOXICILLIN/CLAVULANIC ACID ?16 ?I AMPICILLIN ? >=32 ?R AMPICILLIN/SULBACTAM ? >=32 ?R CEFAZOLIN ?<=4 ? S CEFEPIME ? <=1 ? S CEFTRIAXONE ?<=1 ? S CIPROFLOXACIN ?<=0.25 ?S ERTAPENEM ?<=0.5 ? S GENTAMICIN ? <=1 ? S IMIPENEM ? <=0.25 ?S LEVOFLOXACIN ? <=0.12 ?S NITROFURANTOIN ? 64 ?I PIPERACILLIN/TAZOBACTAM ?8 ? S TRIMETHOPRIM/SULFAMETHOXAZOLE ??>=320 ? R TOBRAMYCIN ? 8 ? I ??S=Susceptible ?? I=Intermediate ?? S=Resistant ??SDD=Susceptible Dose Dependent ?? N/R=No Report ?STEPHANY =Beta Lactamase - [facility] ? [address] ? [place] [facility] ? Wilian Diggs MD Procedure Note 10/15/2018 Microbiology Specimen Report (Converted) SPECIMEN [id number] COLLECTED: 2017-11-16 02:00:00 REQ#:[id number] REQUESTING DR: Sergei Olmstead SOURCE: URINE SP DESC: CLEAN CATC COMMENT: Collected By pb Urine collection method Clean catch Indication(s) for ordering Pain-pelv/flank/suprapubc --- PROCEDURE --- --- RESULT --- CULTURE URINE (Final) - Performed at [facility] * COLONY COUNT: 50,000 CFU/ml * MIXED GRAM POSITIVE ORGANISMS * Organism 1 - KLEB PNEUMONIAE SSP PNEUMONIAE [KLE PNEUMO] * COLONY COUNT: >100,000 CFU/ml * SEE SUSCEPTIBILITY REPORT BELOW [KLE PNEUMO] M.I.C. RX AMOXICILLIN/CLAVULANIC ACID 16 I AMPICILLIN >=32 R AMPICILLIN/SULBACTAM >=32 R CEFAZOLIN <=4 S CEFEPIME <=1 S CEFTRIAXONE <=1 S CIPROFLOXACIN <=0.25 S ERTAPENEM <=0.5 S GENTAMICIN <=1 S IMIPENEM <=0.25 S LEVOFLOXACIN <=0.12 S NITROFURANTOIN 64 I PIPERACILLIN/TAZOBACTAM 8 S TRIMETHOPRIM/SULFAMETHOXAZOLE >=320 R TOBRAMYCIN 8 I S=Susceptible I=Intermediate S=Resistant SDD=Susceptible Dose Dependent N/R=No Report STEPHANY =Beta Lactamase - [address] [address] Wilian Diggs MD Sergei Olmstead [facility] BLOOD ORDERABLES Ellyn l Result [facility] HISTORICAL RESULTS * (ABNORMAL) Urinalysis, macro and micro (11/16/2017 2:00 AM CDT) Ur Collection Type CLEAN CATCH 11/16/2017 2:26 AM CDT [facility] HISTORICAL RESULTS Urine Color YELLOW YELLOW Urine Clarity Slightly-Heidy udy CLEAR Urine Glucose (UA) NORMAL NORMAL mg/dL Urine Bilirubin NEGATIVE NEGATIVE mg/dl Urine Ketones 5(H) NEGATIVE mg/dL Ur Specific Ambrose 1.033(H) 1.005 - 1.025 Urine Blood NEGATIVE NEGATIVE mg/dl Urine pH 5.0 5.0 - 8.0 Urine Protein 30(H) NEGATIVE mg/dL Urine Urobilinogen 4(H) NORMAL mg/dL Urine Nitrite POSITIVE(H) NEGATIVE Ur Leukocyte Esterase 75(H) NEGATIVE Lizeth/ul Ur Microscopic Review Indicated or Ordered Urine RBC 2 0 - 2 /HPF Urine WBC 35 0 - 2 /HPF Urine Bacteria Few /HPF Ur Squamous Epith Cells Rare /HPF 11/16/2017 2:00 AM T 11/16/2017 2:18 AM [facility] HISTORICAL RESULTS - 11/16/2017 2:26 AM T us Sergei Olmstead [facility] URINE ORDERABLES Ellyn l Result [facility] HISTORICAL RESULTS * (ABNORMAL) Lipase (11/16/2017 1:21 AM CDT) Lipase 11(L) 13 - 60 U/L 11/16/2017 1:21 AM CDT 11/16/2017 1:24 AM CDT Sergei Olmstead [facility] BLOOD ORDERABLES Ellyn l Result Performing Organization Address [facility]/ZIP Co de Phone Number [facility] HISTORICAL RESULTS * (ABNORMAL) Comprehensive metabolic panel (11/16/2017 1:21 AM CDT) Pathologist [facility] Sodium 128(L) 135 - 145 mmol/L Potassium 4.8 3.3 - 5.1 mmol/L Chloride 87(L) 96 - 108 mmol/L Carbon Dioxide 30 22 - 32 mmol/L Anion Gap 11 7 - 16 Glucose 112(H) 70 - 100 mg/dL BUN 19 8 - 23 mg/dL Creatinine 0.7 0.5 - 1.1 mg/dL Comment: NOTE: Estimated GFR (Cockroft-Gault) will NOT be calculated unless patient Height and Weight were entered. Also, Kidney Disease Stage (GFR) and Estimated GFR (Cockroft-Gault) will NOT be calculated if Creatinine result is <0.2. Kidney Disease Stage 90 mL/MIN Comment: NOTE; ??The GFR is [...] or on dialysis @ Est GFR (Cockcroft-G) 91 ml/MIN 11/16/2017 1:48 AM [employer] HISTORICAL RESULTS Comment: Estimated GFR(Cockroft-Gault)is used to calculate patient medication dosage Calcium 8.7(L) 8.8 - 10.2 mg/dL 11/16/2017 1:48 AM [employer] HISTORICAL RESULTS Total Protein 6.9 6.4 - 8.3 g/dL 11/16/2017 1:48 AM [facility] [employer] HISTORICAL RESULTS Albumin 3.8 3.5 - 5.2 g/dL 11/16/2017 1:48 AM [employer] [facility] [email or web address] HISTORICAL RESULTS Globulin 3.1 2.3 - 3.5 gm/dL 11/16/2017 1:48 AM [employer] HISTORICAL RESULTS Albumin/Globulin Ratio 1.2 1.1 - 1.8 11/16/2017 1:48 AM [employer] HISTORICAL RESULTS Total Bilirubin 0.2 0.0 - 1.2 mg/dL 11/16/2017 1:48 AM [employer] [facility] [email or web address] HISTORICAL RESULTS AST 18 0 - 32 U/L 11/16/2017 1:51 AM [employer] HISTORICAL RESULTS Comment: Slight hemolysis noted ?? HEMOLYZED: Hemolysis interferes with the above test. ALT 13 0 - 33 U/L 11/16/2017 1:48 AM CDT [facility] [employer] HISTORICAL RESULTS Alkaline Phosphatase 59 35 - 104 U/L 11/16/2017 1:49 AM CDT [facility] HISTORICAL RESULTS 11/16/2017 1:21 AM CDT 11/16/2017 1:24 AM CDT Sergei Olmstead [facility] BLOOD ORDERABLES Ellyn bryan Result [facility] HISTORICAL RESULTS * (ABNORMAL) CBC with auto differential (11/16/2017 1:21 AM CDT) WBC 6.4 3.5 - 10.5 x10 3/ul 11/16/2017 1:27 AM CDT [facility] HISTORICAL RESULTS RBC 4.85(H) 3.76 - 4.80 x10 6/ul 11/16/2017 1:27 AM CDT [facility] HISTORICAL RESULTS Hemoglobin 14.6 11.0 - 15.0 g/dL 11/16/2017 1:27 AM CDT [facility] HISTORICAL RESULTS Hct 42.4 33.0 - 43.0 % 11/16/2017 1:27 AM CDT [facility] HISTORICAL RESULTS MCV 87.4 80.0 - 97.0 fl 11/16/2017 1:27 AM CDT [facility] HISTORICAL RESULTS MCH 30.1 27.0 - 31.2 pg 11/16/2017 1:27 AM CDT [facility] HISTORICAL RESULTS MCHC 34.4 31.8 - 35.4 g/dl 11/16/2017 1:27 AM CDT [facility] [employer] HISTORICAL RESULTS RDW 14.3 11.6 - 14.8 % 11/16/2017 1:27 AM CDT [facility] [email or web address] HISTORICAL RESULTS Plt Count 179 150 - 450 X10 3/ul 11/16/2017 1:27 AM CDT [facility] [employer] HISTORICAL RESULTS MPV 11.0(H) 7.4 - 10.4 fl 11/16/2017 1:27 AM CDT [facility] HISTORICAL RESULTS Neut % 46.0 37.0 - 85.0 % Immature Gran % 0.5 0.0 - 3.0 % Lymph % 41.0 5.0 - 45.0 % Douglas % 8.5 3.0 - 15.0 % Eos % 3.5 0.0 - 7.0 % Baso % 0.5 0.0 - 2.0 % Absolute Neuts (auto) 2.9 1.7 - 8.7 x10 3/ul Immature Gran # 0.0 0.0 - 0.3 x10 3/ul Absolute Lymphs (auto) 2.6 0.2 - 4.6 x10 3/ul Absolute Monos (auto) 0.5 0.1 - 1.5 x10 3/ul Absolute Eos (auto) 0.2 0.0 - 0.7 x10 3/ul Absolute Basos (auto) 0.0 0.0 - 0.2 x10 3/ul Nucleat RBC Rel Count 0.0 0 - 3 #/100WBC Absolute Nucleated RBC 0.00 x10 3/ul Absolute Neutrophils 2900 200 - 8000 /ul 11/16/2017 1:21 AM CDT 11/16/2017 1:24 AM CDT us Sergei Olmstead [facility] BLOOD ORDERABLES Ellyn adams Result [facility] HISTORICAL RESULTS * XR Chest 1 View (11/16/2017 12:00 AM CDT) Anatomical Region Laterality Modality Body, Chest N/A Radiographic Meera ging 11/16/2017 Impressions 11/16/2017 3:09 AM CDT ??No acute cardiopulmonary disease. THIS IS AN ELECTRONICALLY VERIFIED FINAL REPORT 11/16/2017 3:05 AM - Electronically signed by Marcia Carver M.D. JS: DIAMOND D: ??11/16/2017 3:05 AM T: ??11/16/2017 3:05 AM Report ID: [id number] Reading Location: ??[id number] [EOD] Narrative 11/16/2017 3:09 AM CDT EXAM DESCRIPTION: ??Chest 1 View Portable COMPLETED DATE/TIME: ??11/16/2017 2:58 am REASON FOR STUDY: ??Rt upper quadrant pain that became unbearable today. +nausea. Pain increases with palpation. TECHNIQUE: ??Portable upright AP image at 0254 hours COMPARISON: ??01/23/2014 FINDINGS: LUNGS/PLEURA: No focal consolidation or pneumothorax. No pleural effusion. HEART/MEDIASTINUM: Heart size is largely stable. ??Unchanged mediastinal and hilar contours. HARDWARE/LINES/TUBES: None. BONES: No acute fracture. ??Degenerative joint disease. OTHER: No other significant finding. Procedure Note Provider, Lucille, - 12/10/2020 EXAM DESCRIPTION: Chest 1 View Portable COMPLETED DATE/TIME: 11/16/2017 2:58 am REASON FOR STUDY: Rt upper quadrant pain that became unbearable today. +nausea. Pain increases with palpation. TECHNIQUE: Portable upright AP image at 0254 hours COMPARISON: 01/23/2014 FINDINGS: LUNGS/PLEURA: No focal consolidation or pneumothorax. No pleuraleffusion. HEART/MEDIASTINUM: Heart size is largely stable. Unchanged mediastinaland hilar contours. HARDWARE/LINES/TUBES: None. BONES: No acute fracture. Degenerative joint disease. OTHER: No other significant finding. IMPRESSION: No acute cardiopulmonary disease. THIS IS AN ELECTRONICALLY VERIFIED FINAL REPORT 11/16/2017 3:05 AM - Electronically signed by Marcia Carver M.D. JS: DIAMOND Report ID: [id number] Reading Location: [id number] [EOD] Sergei Olmstead [facility] IMG XR PROCEDURES Final R esult * CT Abdomen Pelvis WO Contrast (11/16/2017 12:00 AM CDT) Anatomical Region Laterality Modality Body N/A Computed Tomogra phy 11/16/2017 Impressions 11/16/2017 2:42 AM CDT ??Nonobstructing nephrolithiasis. ??No acute appearing findings. THIS IS AN ELECTRONICALLY VERIFIED FINAL REPORT 11/16/2017 2:39 AM - Electronically signed by Monroe Martinez M.D. RW: ROXANE D: ??11/16/2017 2:39 AM T: ??11/16/2017 2:39 AM Report ID: [id number] Reading Location: ??[id number] [EOD] Narrative 11/16/2017 2:42 AM CDT EXAM DESCRIPTION: ??CT Abd/Pelvis WO IV Contrast COMPLETED DATE/TIME: ??11/16/2017 2:20 am REASON FOR STUDY: ??Abdominal pain right upper quadrant pain nausea of for 1 day TECHNIQUE: ??CT scan of the abdomen and pelvis performed without intravenous and without oral contrast using helical scanning technique. Reconstructed coronal and sagittal MPR images reviewed. All images stored on PACS. The sensitivity for detection of solid visceral lesions is diminished without the use of intravenous contrast. Automated exposure control was used as a dose optimization technique for this examination. COMPARISON: ??None FINDINGS: ABDOMEN/PELVIS: LOWER CHEST: No significant pulmonary abnormalities. No effusion. LIVER: Normal size. ??No identified cystic or solid masses. GALLBLADDER: No stones identified. No wall thickening or inflammatory changes. BILE DUCTS: No intrahepatic or extrahepatic ductal dilatation. SPLEEN: Normal size. ??No focal lesions. PANCREAS: No identified cystic or solid masses. ??No significant calcifications. No adjacent inflammation or peripancreatic fluid collections. Pancreatic duct not dilated. ADRENALS: Normal. KIDNEYS/URINARY TRACT: No identified significant cystic or solid masses. ?? Nonobstructing right renal stones measuring 1-2 mm. ??Nonobstructing 2 mm stone lower pole left kidney. ??No hydronephrosis or hydroureter. Urinary bladder is unremarkable. GI: No dilated bowel loops. No obvious wall thickening. ??Normal appendix. ??No significant diverticular disease. PERITONEUM: No ascites or free air. RETROPERITONEUM: No mass or adenopathy. REPRODUCTIVE: No significant abnormality. VASCULATURE: Moderate atheromatous vascular calcifications. MUSCULOSKELETAL: No acute finding. OTHER: No other abnormality. Procedure Note Provider, MD Lucille - 12/10/2020 EXAM DESCRIPTION: CT Abd/Pelvis WO IV Contrast COMPLETED DATE/TIME: 11/16/2017 2:20 am REASON FOR STUDY: Abdominal pain right upper quadrant pain nausea of for1 day TECHNIQUE: CT scan of the abdomen and pelvis performed withoutintravenous and without oral contrast using helical scanning technique. Reconstructed coronal and sagittal MPR images reviewed. All images stored on PACS. The sensitivity for detection of solid visceral lesions is diminished withoutthe use of intravenous contrast. Automated exposure control was used as a dose optimization technique forthis examination. COMPARISON: None FINDINGS: ABDOMEN/PELVIS: LOWER CHEST: No significant pulmonary abnormalities. No effusion. LIVER: Normal size. No identified cystic or solid masses. GALLBLADDER: No stones identified. No wall thickening or inflammatorychanges. BILE DUCTS: No intrahepatic or extrahepatic ductal dilatation. SPLEEN: Normal size. No focal lesions. PANCREAS: No identified cystic or solid masses. No significant calcifications. No adjacent inflammation or peripancreatic fluidcollections. Pancreatic duct not dilated. ADRENALS: Normal. KIDNEYS/URINARY TRACT: No identified significant cystic or solid masses. Nonobstructing right renal stones measuring 1-2 mm. Nonobstructing 2 mmstone lower pole left kidney. No hydronephrosis or hydroureter. Urinary bladderis unremarkable. GI: No dilated bowel loops. No obvious wall thickening. Normal appendix.No significant diverticular disease. PERITONEUM: No ascites or free air. RETROPERITONEUM: No mass or adenopathy. REPRODUCTIVE: No significant abnormality. VASCULATURE: Moderate atheromatous vascular calcifications. MUSCULOSKELETAL: No acute finding. OTHER: No other abnormality. IMPRESSION: Nonobstructing nephrolithiasis. No acute appearingfindings. THIS IS AN ELECTRONICALLY VERIFIED FINAL REPORT 11/16/2017 2:39 AM - Electronically signed by Monroe Martinez M.D. RW: ROXANE Report ID: [id number] Reading Location: [place] [address] [EOD] Sergei Olmstead NP IMG CT PROCEDURES Final R esult documented in this encounter Visit Diagnoses Diagnosis Calculus of bile duct without cholangitis or cholecystitis without obstruction Urinary tract infection Urinary tract infection, site not specified Essential (primary) hypertension Unspecified essential hypertension Allergy status to other drugs, medicaments and biological substances status Latex allergy status Allergy status to sulfonamides Allergy status to analgesic agent Other halfway (current) drug therapy documented in this encounter
--- OUTSIDE RECORDS SUMMARY | 2024-08-13 05:04 | XMS_ITS | Encounter Summary ---
Author Organization [facility] Healthcare Address [address] [place] [address] Care Team Providers Care Speeder Tender Name Role Phone Unavailable Primary Care Provider Unavailabl e Encounter Details Date Type Department Care Team (Latest Contact Info) Description 02/03/2017 6:40 PM CDT - 02/03/2017 11:59 PM CDT Hospital Encounter [facility] [...] Procedure Name Priority Date/Time Associated Diagnosis Comments EGFR Routine 02/03/2017 6:40 PM CDT DIFFERENTIAL AUTO Routine 02/03/2017 6:4 0 PM CDT COMPREHENSIVE METABOIC PANEL, SERUM Routine 02/03/2017 6:40 PM CDT CBC WITH AUTO DIFFERENTIAL Routine 02/03/2017 6:40 PM CDT PROTIME-INR Routine 02/03/2017 6:40 PM CDT DISCHARGE LABORATORY CUMULATIVE REPORT 02/03/2017 12:00 AM CDT documented in this encounter Results * eGFR (02/03/2017 6:40 PM CDT) [facility] eGFR 94 mL/min/1.7 3 m2 SHAILA AMARO Comment: Interpretive Data Reference Interval Normal ?>/= 90 mL/min/1.73m2 Mildly decreased* ? 60 - 89 mL/min/1.73m2 Mildly to moderately decreased ?45 - 59 mL/min/1.73m2 Moderately to severely decreased ??30 - 44 mL/min/1.73m2 Severely decreased ?15 - 29 mL/min/1.73m2 Kidney Failure ?< 15 ??mL/min/1.73m2 *Relative to young adult level If -Citizen Of [place] multiply value by 1.16. Estimated glomerular filtration rate is determined by the CKD-EPI equation recommended by the National Kidney Foundation (KDIGO 2012 Clinical Practice Guideline for the Evaluation and Management of Chronic Kidney Disease. Kidney Intnl Suppl Jul 2012;3:1). The CKD-EPI equation should not be used for patients with unstable renal function and has not been validated in children and those over 70. Current interpretive data was last reviewed 2016. Blood specimen (specimen) 02/03/2017 6:40 PM CDT 02/03/2017 7:45 PM CDT us Notinfile Unknown LAB BLOOD ORDERABLES Final Res ult SHAILA Castaneda[address] [place] [address] * (ABNORMAL) Comprehensive metabolic panel, serum (02/03/2017 6:40 PM CDT) Sodium 124(C) 135 - 145 mmol/L [facility] Comment:Critical result call ed to and read back by Niki Hernandez/ [facility]/02/03/2017 20:28:13 CDT/RFY Potassium, sr 4.4 3.5 - 5.1 mmol/L [facility] Chloride 85(L) 100 - 114 mmol/L [facility] CO2 27 22 - 32 mmol/L [facility] BUN 17 8 - 24 mg/dL [facility] Glucose 163 70 - 199 mg/dL [facility] Creatinine 0.65 0.60 - 1.30 mg/dL [facility] Calcium 8.3(L) 8.4 - 10.5 mg/dL [facility] Albumin 3.2 3.2 - 4.8 g/dL [facility] AST 19 7 - 40 Units/L [facility] ALT 13 1 - 45 Units/L [facility] Alk phos 41 30 - 110 Units/L [facility] Bilirubin, total 0.50 0.10 - 1.30 mg/dL [facility] Protein, sr 4.9(L) 6.0 - 8.3 g/dL [facility] Anion gap 16 8 - 16 mmol/L [facility] Blood specimen (specimen) 02/03/2017 6:40 PM CDT 02/03/2017 7:45 PM CDT us Notinfile Unknown LAB BLOOD ORDERABLES Final Res ult SHAILA Castaneda[address] Department [place] [address] * Protime-INR (02/03/2017 6:40 PM CDT) PT 11.9 9.5 - 13.0 sec [facility] INR 1.05 0.90 - 1.20 [facility] Blood specimen (specimen) 02/03/2017 6:40 PM CDT 02/03/2017 7:44 PM CDT us Notinfile Unknown LAB BLOOD ORDERABLES Final Res ult Performing Organization Address City/[facility]/ZIP Co de Phone Number SHAILA Castaneda[address] [place] [address] [place] [address] * (ABNORMAL) Differential, auto (02/03/2017 6:40 PM CDT) Neutrophil pct 46.0 % [facility] Imm gran pct 2.6 % [facility] Lymphocyte pct 34.6 % [facility] Monocyte pct 13.7 % [facility] Eosinophil pct 0.2 % [facility] Basophil pct 0.4 % [facility] Neutrophil abs 3.42 1.70 - 6.50 K/cumm [facility] Imm gran abs 0.19(H) 0.00 - 0.10 K/cumm [facility] Lymphocyte abs 2.57 0.80 - 3.30 K/cumm [facility] Monocyte abs 1.02(H) 0.20 - 0.80 K/cumm [facility] Eosinophil abs 0.20 0.00 - 0.50 K/cumm [facility] Basophil abs 0.03 0.00 - 0.10 K/cumm [facility] Blood specimen (specimen) 02/03/2017 6:40 PM CDT 02/03/2017 7:45 PM CDT us Notinfile Unknown LAB BLOOD ORDERABLES Final Res ult Performing Organization Address City/[facility]/ZIP Co de Phone Number SHAILA AMARO [address] [place] [address] [place] [address] * (ABNORMAL) CBC with auto differential (02/03/2017 6:40 PM CDT) WBC 7.43 3.80 - 9.90 K/cumm [facility] RBC 3.49(L) 3.90 - 5.20 M/cumm [facility] Hgb 10.8(L) 11.9 - 15.5 g/dL [facility] Hct 31.7(L) 35.6 - 45.5 % [facility] MCV 90.8 81.3 - 96.4 fL [facility] MCH 30.9 27.1 - 33.3 pg [facility] MCHC 34.1 32.3 - 35.7 g/dL [facility] RDW CV 13.3 11.1 - 14.9 % [facility] RDW SD 44.0 35.7 - 48.1 fL [facility] Plt 174 150 - 400 K/cumm [facility] MPV 10.7 9.1 - 12.3 fL [facility] NRBC 0.0 0.0 - 0.2 % [facility] NRBC abs 0.00 0.00 - 0.01 K/cumm [facility] Blood specimen (specimen) 02/03/2017 6:40 PM CDT 02/03/2017 7:45 PM CDT us Notinfile Unknown LAB BLOOD ORDERABLES Final Res ult [facility] [address] Department [place] [address] * DISCHARGE LABORATORY CUMULATIVE REPORT (02/03/2017 12:00 AM CDT) Narrative 02/03/2017 12:00 AM CDT Ordered by an unspecified provider. us Historical Provider LAB BLOOD ORDERABLES Ellyn l Result documented in this encounter Visit Diagnoses Not on filedocumented in this encounter
--- OUTSIDE RECORDS SUMMARY | 2024-08-13 05:04 | XMS_ITS | Encounter Summary ---
Author Organization [facility] Healthcare Address [address] [place] [address] Care Team Providers Care Seed Cleaner Name Role Phone Unavailable Primary Care Provider Unavailabl e Encounter Details Date Type Department Care Team (Late st Contact Info) Description 01/28/2014 7:52 PM CDT - 01/29/2014 5:48 AM CDT Hospital Encounter [facility] OP Dean Stephenson MD [address] [facility] [address] [address] Hypersomnia; Edema Social History Tobacco Use Types Packs/Day Years [...] Respiratory Rate - - Oxygen Saturation 98% 01/28/2014 9:40 PM CDT Inhaled Oxygen Concentration - - Weight - - Height - - Body Mass Index - - documented in this encounter Medications at Time [...] Procedure Name Priority Date/Time Associated Diagnosis Comments SLEEP LAB/STUDY - RESULT 02/13/2014 12:00 AM CDT BLOOD GAS (INCLUDES COOX) Routine 01/29/2014 5:51 AM CDT documented in this encounter Results * SLEEP LAB/STUDY - RESULT (02/13/2014 12:00 AM CDT) Narrative 02/13/2014 12:00 AM CDT Ordered by an unspecified provider. us Historical Provider MD Final Res ult * (ABNORMAL) Blood gas (includes COOX) (01/29/2014 5:51 AM CDT) Specimen Type ARTERIAL 01/29/2014 5:58 AM CDT [facility] HISTORICAL RESULTS Puncture Site RB 01/29/2014 5:58 AM CDT [facility] HISTORICAL RESULTS Patient Temperature 37 C 01/29 5:58 AM T [facility] HISTORICAL RESULTS pH 7.417 7.350 - 7.450 01/29/2014 5:58 AM T [facility] HISTORICAL RESULTS pCO2 46.9(H) 34.0 - 45.0 mmHg 01/29/2014 5:58 AM CDT [facility] HISTORICAL RESULTS pO2 89.3(H) 79.0 - 87.0 mmHg 01/29/2014 5:58 AM CDT [facility] HISTORICAL RESULTS HCO3 29.6(H) 22.0 - 26.0 mmol/L 01/29/2014 5:58 AM [employer] [facility] HISTORICAL RESULTS Total CO2 31.1(H) 26.0 - 28.0 mmol/L 01/29/2014 5:58 AM CDT [facility] HISTORICAL RESULTS Base Excess 4.8(H) -2.0 - 2.0 mmol/L 01/29/2014 5:58 AM [employer] [facility] HISTORICAL RESULTS Hemoglobin 12.1 12.0 - 16.0 g/dL 01/29/2014 5:[address] [facility] HISTORICAL RESULTS O2 Saturation 95.4 >=95.0 % 01/29/2014 5:[address] [facility] HISTORICAL RESULTS ABG Carboxyhemoglobin 1.0 <=3.0 % 01/29/2014 5:[address] [facility] HISTORICAL RESULTS ABG Methemoglobin 0.6 0.4 - 1.5 % 01/29/2014 5:[address] [facility] HISTORICAL RESULTS ABG O2 Content 16.3(L) 17.6 - 24.3 Vol % 01/29/2014 5:[address] [facility] HISTORICAL RESULTS A-a O2 Difference 18.9(H) <=10.0 014 5:[address] [facility] HISTORICAL RESULTS a/A Ratio 0.8 >=0.8 01/29/2014 5:[address] [facility] HISTORICAL RESULTS O2 Delivery Device CANNULA 2013 5:[address] [facility] HISTORICAL RESULTS Liter Flow 1.0 01/29/2014 5:[address] [facility] HISTORICAL RESULTS FiO2 24.0 % 01/29/2014 5:[address] [facility] HISTORICAL RESULTS BG Specimen Comment SLEEP LAB 01/29 5:[address] [facility] HISTORICAL RESULTS Template Inspector ID LAS 01/29/2014 5:[address] [facility] HISTORICAL RESULTS BLOOD GAS COMMENTS Sample Iced 01/29/2014 5:5 1 AM CDT 01/29/2014 5:51 AM T N[facility]ative [facility] [employer] [facility] [employer] HISTORICAL RESULTS - 01/29/2014 5:58 AM CDT Conditions Oxygen ?? Source Arterial ?? Comment ? please draw abg at 530am on 1.0lpm via nasal judi us Dean Stephenson MD LAB BLOOD ORDERABLES Ellyn adams Result [facility] HISTORICAL RESULTS documented in this encounter Visit Diagnoses Diagnosis Hypersomnia Hypersomnia, unspecified Edema documented in this encounter
--- OUTSIDE RECORDS SUMMARY | 2024-08-13 05:04 | XMS_ITS | Encounter Summary ---
Author Organization [facility] Healthcare Address [address] [place] [address] Care Team Providers Care Octave Board Racker Name Role Phone Unavailable Primary Care Provider Unavailabl e Encounter Details Date Type Department Care Team (Latest Contact Info) Description 04/11/2014 12:22 PM CDT Hospital Encounter [facility] OP Ariela Garcia MD [address] [facility] [address] [place] [address] Gastroparesis; Nausea with vomiting; Abdominal pain; Other digestive system complications Social History Tobacco Use Types Packs/Day Years [...] Procedure Name Priority Date/Time Associated Diagnosis Comments NM HEPATOBILIARY IMAGING Routine 04/11/2014 1:00 PM CDT documented in this encounter Results * NM Hepatobiliary Imaging (04/11/2014 1:00 PM CDT) Anatomical Region Laterality Modality Body N/A Nuclear Medicine 04/11/2014 1:00 PM CDT Impressions 04/11/2014 3:55 PM CDT ??NORMAL STUDY WITH NORMAL EJECTION FRACTION OF 95% THIS IS AN ELECTRONICALLY VERIFIED REPORT 04/11/2014 3:52 PM: ??Jairo Barnes M.D. Jairo Barnes M.D. NC:nc 03:52 PM 03:52 PM [facility] [EOD] Narrative 04/11/2014 3:55 PM CDT EXAMINATION: ??Hepatobiliary scan with fatty meal. HISTORY: ??Abdominal pain TECHNIQUE: ??The patient received 5.3 mCi of technetium 99 Choletec along with Ensure meal. COMPARISON: ??None available FINDINGS: ??There is normal uptake within the gallbladder. ??No evidence of cystic duct obstruction or cholecystitis. The ejection fraction is normal at 95% Procedure Note Provider, MD Lucille - 12/10/2020 EXAMINATION: Hepatobiliary scan with fatty meal. HISTORY: Abdominal pain TECHNIQUE: The patient received 5.3 mCi of technetium 99 Choletec alongwith Ensure meal. COMPARISON: None available FINDINGS: There is normal uptake within the gallbladder. No evidence of cystic duct obstruction or cholecystitis. The ejection fraction is normalat 95% IMPRESSION: NORMAL STUDY WITH NORMAL EJECTION FRACTION OF 95% THIS IS AN ELECTRONICALLY VERIFIED REPORT 04/11/2014 3:52 PM: Jairo Barnes M.D. Jairo Barnes M.D. NC:gino 03:52 PM 03:52 PM [facility] [EOD] Ariela Garcia MD IMG NM PROCEDURES Final R esult documented in this encounter Visit Diagnoses Diagnosis Gastroparesis Nausea with vomiting Abdominal pain Abdominal pain, unspecified site Other digestive system complications documented in this encounter
--- OUTSIDE RECORDS SUMMARY | 2024-08-13 05:04 | XMS_ITS | Encounter Summary ---
Author Organization [facility] Healthcare Address [address] [place] [address] Care Team Providers Care Shore Worker Name Role Phone Unavailable Primary Care Provider Unavailabl e Encounter Details Date Type Department Care Team (Latest Contact Info) Description 02/21/2014 7:29 PM CDT - 02/22/2014 5:50 AM CDT Hospital Encounter [facility] OP Dean Stephenson MD [address] [facility] [address] [place] [address] Obstructive sleep apnea Social History Tobacco Use Types Packs/Day [...] - Respiratory Rate - - Oxygen Saturation 92% 02/21/2014 10:12 PM CDT Inhaled Oxygen Concentration - - [...] Associated Diagnosis Comments SLEEP LAB/STUDY - RESULT 03/01/2014 12:00 AM CDT BLOOD GAS (INCLUDES COOX) Routine 02/22/2014 5:25 AM CDT documented in this encounter Results * SLEEP LAB/STUDY - RESULT (03/01/2014 12:00 AM CDT) Narrative 03/01/2014 12:00 AM CDT Ordered by an unspecified provider. us Historical Provider MD Final Res ult * (ABNORMAL) Blood gas (includes COOX) (02/22/2014 5:25 AM CDT) Specimen Type ARTERIAL 02/22/2014 5[facility] [employer] HISTORICAL RESULTS Puncture Site LR 02/22/2014 5:51 AM CDT [employer] HISTORICAL RESULTS Patient Temperature 37 C 02/22 5:51 [facility] [employer] HISTORICAL RESULTS pH 7.403 7.350 - 7.450 02/22/2014 5:51 [facility] [employer] HISTORICAL RESULTS pCO2 46.4(H) 34.0 - 45.0 mmHg 02/22/2014 5:51 [facility] [employer] HISTORICAL RESULTS pO2 76.5(L) 79.0 - 87.0 mmHg 02/22/2014 5:51 [facility] [employer] HISTORICAL RESULTS HCO3 28.4(H) 22.0 - 26.0 mmol/L 02/22/2014 5:51 AM CDT [employer] HISTORICAL RESULTS Total CO2 29.8(H) 26.0 - 28.0 mmol/L 02/22/2014 5:[facility] [employer] HISTORICAL RESULTS Base Excess 3.5(H) -2.0 - 2.0 mmol/L 02/22/2014 5:51 AM CDT [employer] HISTORICAL RESULTS Hemoglobin 11.5(L) 12.0 - 16.0 g/dL 02/22/2014 5:[address] [facility] HISTORICAL RESULTS O2 Saturation 93.3(L) >=95.0 % ABG Carboxyhemoglobin 1.1 <=3.0 % 5:51 AM T [facility] HISTORICAL RESULTS ABG Methemoglobin 0.8 0.4 - 1.5 % ABG O2 Content 15.1(L) 17.6 - 24.3 Vol % 02/22/2014 5:[address] [facility] HISTORICAL RESULTS A-a O2 Difference 33.5(H) <=10.0 014 5:[address] [facility] HISTORICAL RESULTS a/A Ratio 0.7(L) >=0.8 02/22/2014 5:[address] [facility] HISTORICAL RESULTS O2 Delivery Device CPAP 2013 5:[address] [facility] HISTORICAL RESULTS Liter Flow 1.0 02/22/2014 5:[address] [facility] HISTORICAL RESULTS FiO2 24.0 % 02/22/2014 5:[address] [facility] HISTORICAL RESULTS CPAP 7.0 02/22/2014 5:[address] [facility] HISTORICAL RESULTS Journeyman Level Acoustic Analyst ID STEVEN 02/22/2014 5:[address] [facility] HISTORICAL RESULTS 02/22/2014 5:25 AM CDT 02/22/2014 5:32 AM T Narrative [facility] HISTORICAL RESULTS - 02/22/2014 5:51 AM T Conditions Oxygen ?? Source Arterial ?? Comment ? please draw abg at 5am on cpap with o2 bleed in us Dean Stephenson MD LAB BLOOD ORDERABLES Ellyn adams Result [facility] HISTORICAL RESULTS documented in this encounter Visit Diagnoses Diagnosis Obstructive sleep apnea Obstructive sleep apnea (adult) (pediatric) documented in this encounter
--- OUTSIDE RECORDS SUMMARY | 2024-08-13 05:04 | XMS_ITS | Encounter Summary ---
Author Organization [facility] Healthcare Address [address] [place] [address] Care Team Providers Care Transportation Worker Name Role Phone Unavailable Primary Care Provider Unavailabl e Encounter Details Date Type Department Care Team (Latest Contact Info) Description 12/18/2017 4:20 PM CDT - 12/23/2017 6:20 PM CDT Hospital Encounter [facility] Chas Graves MD [address] [place] [address] Hypo-osmolality and hyponatremia; Traumatic ischemia of muscle (CMS/HCC); Syncope and collapse; Bipolar disorder (CMS/HCC); Essential (primary) hypertension; Uncomplicated asthma; Fall from toilet with subsequent striking against object; Insomnia; Venous insufficiency (chronic) (peripheral); Bathroom of non-institutional residence single-family house as the place of occurrence of the external cause; Primary osteoarthritis of left shoulder; Primary osteoarthritis of right shoulder; Allergy status to other drugs, medicaments and biological substances status; Latex allergy status; Allergy status to sulfonamides; Allergy status to other anti-infective agents status Social History Tobacco Use Types Packs/Day Years Used Date Smoking Tobacco: Never Assessed Comments Unknown Sex and Gender Information Value Date Recorded Sex Assigned at Not on file Legal Sex Female 10:28 AM CDT Gender Identity Female 01/30/2020 10:55 AM CDT Sexual Orientation Not on file documented as of this encounter Last Filed Vital Signs Vital Sign Reading Time Taken Comments Blood Pressure 128/75 12/18/2017 5:44 PM CDT Pulse 98 12/18/2017 5:44 PM CDT Temperature 36.8 ??C (98.2 ??F) 12/18/2017 5:44 PM CD T Respiratory Rate - - Oxygen Saturation 99% 12/18/2017 5:44 PM CDT Inhaled Oxygen Concentration - - Weight 92.3 kg (203 lb 9 oz) 12/18/2017 5:44 PM CDT Height 160 cm (5' 3 ) 12/18/2017 5:44 PM CDT Body Mass Index 36.06 12/18/2017 5:44 PM CDT documented in this [...] Procedure Name Priority Date/Time Associated Diagnosis Comments PRO B-TYPE NATRIURETIC PEPTIDE Routine 12/23/2017 7:04 AM CDT CBC WITH AUTO DIFFERENTIAL Routine 12/23/2017 7:04 AM CDT COMPREHENSIVE METABOLIC PANEL Routine 12/23/2017 7:04 AM CDT PRO B-TYPE NATRIURETIC PEPTIDE Routine 12/22/2017 11:55 AM CDT CBC WITH AUTO DIFFERENTIAL Routine 12/22/2017 5:53 AM CDT BASIC METABOLIC PANEL Routine 12/22/2017 5:53 AM CDT MICROBIOLOGY SPECIMEN REPORT (CONVERTED) Routine 12/21/2017 9:20 AM CDT CBC WITH AUTO DIFFERENTIAL Routine 12/21/2017 8:09 AM CDT COMPREHENSIVE METABOLIC PANEL Routine 12/21/2017 8:09 AM CDT VALPROIC ACID LEVEL, TOTAL Routine 12/20/2017 2:45 PM CDT CBC WITH AUTO DIFFERENTIAL Routine 12/20/2017 6:56 AM CDT CREATINE KINASE (CK), TOTAL Routine 12/20/2017 6:56 AM CDT BASIC METABOLIC PANEL Routine 12/20/2017 6:56 AM CDT SODIUM, URINE, RANDOM Routine 12/19/2017 2:10 PM CDT OSMOLALITY, URINE Routine 12/19/2017 2:1 0 PM CDT THYROID PANEL Routine 12/19/2017 6:54 AM CDT CBC WITH AUTO DIFFERENTIAL Routine 12/19/2017 6:54 AM CDT OSMOLALITY, BLOOD Routine 12/19/2017 6:5 4 AM CDT LIPID PANEL Routine 12/19/2017 6:54 AM CDT COMPREHENSIVE METABOLIC PANEL Routine 12/19/2017 6:54 AM CDT CARDIOLOGY REPORT 12/19/2017 12: 00 AM CDT TRANSTHORACIC ECHO (TTE) COMPLETE W DOPPLER/CF Routine 12/19/2017 12:00 AM CDT CREATINE KINASE (CK), TOTAL Routine 12/18/2017 9:35 PM CDT URINALYSIS, MACRO AND MICRO Routine 12/18/2017 3:06 PM CDT CBC WITH AUTO DIFFERENTIAL Routine 12/18/2017 12:51 PM CDT TROPONIN I Routine 12/18/2017 12:51 PM CDT PROTIME-INR Routine 12/18/2017 12:51 PM CDT CREATINE KINASE (CK), TOTAL Routine 12/18/2017 12:51 PM CDT COMPREHENSIVE METABOLIC PANEL Routine 12/18/2017 12:[address] CERVICAL SPINE WO CONTRAST Routine 12/18/2017 12:[address] CHEST WO CONTRAST Routine 12/18/2017 12:[address] FACIAL BONES WO CONTRAST Routine 12/18/2017 12:[address] HEAD WO CONTRAST Routine 12/18/2017 1 2:00 AM CDT XR FOOT LEFT 2 VIEWS Routine 12/18/2017 12:00 AM CDT XR KNEE RIGHT 1 OR 2 VIEWS Routine 12/18/2017 12:00 AM CDT XR KNEE LEFT 1 OR 2 VIEWS Routine 12/18/2017 12:[address] ABDOMEN PELVIS WO CONTRAST Routine 12/18/2017 12:00 AM CDT documented in this encounter Results * (ABNORMAL) Pro B-type natriuretic peptide (12/23/2017 7:04 AM CDT) NT-Pro-B Natriuret Pep 749(H) 0 - 125 pg/mL Comment: Reference Range 0-74 years: ??0-125 pg/mL ? >74 years: ??0-450 pg/mL Method: ThinkNearIA technology 12/23/2017 7:04 AM CDT 12/23/2017 7:32 AM CDT us Dustin Rudolph DO LAB BLOOD ORDERABLES Final Res ult [facility] HISTORICAL RESULTS * (ABNORMAL) Comprehensive metabolic panel (12/23/2017 7:04 AM CDT) Sodium 130(L) 135 - 145 mmol/L 12/23/2017 8:08 AM CDT [facility] HISTORICAL RESULTS Potassium 3.6 3.3 - 5.1 mmol/L 12/23/2017 8:08 AM T [facility] HISTORICAL RESULTS Chloride 84(L) 96 - 108 mmol/L Carbon Dioxide 35(H) 22 - 32 mmol/L Anion Gap 11 7 - 16 Glucose 87 70 - 100 mg/dL BUN 21 8 - 23 mg/dL Creatinine 0.8 0.5 - 1.1 mg/dL 12/23/2017 8:08 AM [facility] H[facility]OR[facility] RESULTS Comment: NOTE: Estimated GFR (Cockroft-Gault) will NOT be calculated unless patient Height and Weight were entered. Also, Kidney Disease Stage (GFR) and Estimated GFR (Cockroft-Gault) will NOT be calculated if Creatinine result is <0.2. Kidney Disease Stage 77 mL/MIN Comment: NOTE; ??The GFR is an [...] or on dialysis @ Est GFR (Cockcroft-G) 76 ml/MIN 12/23/2017 8:08 AM [facility] HISTORICAL RESULTS Comment: Estimated GFR(Cockroft-Gault)is used to calculate patient medication dosage Calcium 8.9 8.8 - 10.2 mg/dL 12/23/2017 8:08 AM [facility] [employer] [facility] HISTORICAL RESULTS Total Protein 6.5 6.4 - 8.3 g/dL Albumin 3.6 3.5 - 5.2 g/dL Globulin 2.9 2.3 - 3.5 gm/dL Albumin/Globulin Ratio 1.2 1.1 - 1.8 Total Bilirubin 0.4 0.0 - 1.2 mg/dL AST 30 0 - 32 U/L ALT 19 0 - 33 U/L Alkaline Phosphatase 48 35 - 104 U/L 12/23/2017 7:04 AM CDT 12/23/2017 7:32 AM CDT Dustin Rudolph DO LAB BLOOD ORDERABLES Final Res ult [facility] HISTORICAL RESULTS * (ABNORMAL) CBC with auto differential (12/23/2017 7:04 AM CDT) WBC 6.3 3.5 - 10.5 x10 3/ul RBC 4.48 3.76 - 4.80 x10 6/ul Hemoglobin 13.4 11.0 - 15.0 g/dL Hct 38.5 33.0 - 43.0 % MCV 85.9 80.0 - 97.0 fl MCH 29.9 27.0 - 31.2 pg MCHC 34.8 31.8 - 35.4 g/dl RDW 14.9(H) 11.6 - 14.8 % Plt Count 158 150 - 450 X10 3/ul MPV 11.6(H) 7.4 - 10.4 fl Neut % 35.8(L) 37.0 - 85.0 % Immature Gran % 1.0 0.0 - 3.0 % Lymph % 46.8(H) 5.0 - 45.0 % [place] % 14.1 3.0 - 15.0 % Eos % 1.7 0.0 - 7.0 % Baso % 0.6 0.0 - 2.0 % Absolute Neuts (auto) 2.3 1.7 - 8.7 x10 3/ul Immature Gran # 0.1 0.0 - 0.3 x10 3/ul Absolute Lymphs (auto) 3.0 0.2 - 4.6 x10 3/ul Absolute Monos (auto) 0.9 0.1 - 1.5 x10 3/ul Absolute Eos (auto) 0.1 0.0 - 0.7 x10 3/ul Absolute Basos (auto) 0.0 0.0 - 0.2 x10 3/ul Nucleat RBC Rel Count 0.0 0 - 3 #/100WBC Absolute Nucleated RBC 0.00 x10 3/ul Absolute Neutrophils 2400 200 - 8000 /ul 12/23/2017 7:04 AM CDT 12/23/2017 7:32 AM CDT Dustin Rudolph DO LAB BLOOD ORDERABLES Final Res ult Performing Organization Address [facility] de Phone Number [facility] HISTORICAL RESULTS * (ABNORMAL) Pro B-type natriuretic peptide (12/22/2017 11:55 AM CDT) [facility] NT-Pro-B Natriuret Pep 1271(H) 0 - 125 pg/mL Comment: Reference Range 0-74 years: ??0-125 pg/mL ? >74 years: ??0-450 pg/mL Method: ThinkNearIA technology 12/22/2017 11:5 5 AM CDT 12/22/2017 12:01 PM CDT Dustin Rudolph DO LAB BLOOD ORDERABLES Final Res ult Performing Organization Address [facility]/ZIP Co de Phone Number [facility] HISTORICAL RESULTS * (ABNORMAL) CBC with auto differential (12/22/2017 5:53 AM CDT) [facility] WBC 6.4 3.5 - 10.5 x10 3/ul RBC 4.16 3.76 - 4.80 x10 6/ul Hemoglobin 12.7 11.0 - 15.0 g/dL Hct 35.4 33.0 - 43.0 % MCV 85.1 80.0 - 97.0 fl MCH 30.5 27.0 - 31.2 pg MCHC 35.9(H) 31.8 - 35.4 g/dl RDW 14.7 11.6 - 14.8 % Plt Count 172 150 - 450 X10 3/ul MPV 10.8(H) 7.4 - 10.4 fl Neut % 36.4(L) 37.0 - 85.0 % Immature Gran % 0.8 0.0 - 3.0 % Lymph % 45.1(H) 5.0 - 45.0 % [place] % 16.0(H) 3.0 - 15.0 % Eos % 1.1 0.0 - 7.0 % Baso % 0.6 0.0 - 2.0 % Absolute Neuts (auto) 2.3 1.7 - 8.7 x10 3/ul Immature Gran # 0.1 0.0 - 0.3 x10 3/ul Absolute Lymphs (auto) 2.9 0.2 - 4.6 x10 3/ul Absolute Monos (auto) 1.0 0.1 - 1.5 x10 3/ul Absolute Eos (auto) 0.1 0.0 - 0.7 x10 3/ul Absolute Basos (auto) 0.0 0.0 - 0.2 x10 3/ul Nucleat RBC Rel Count 0.0 0 - 3 #/100WBC Absolute Nucleated RBC 0.00 x10 3/ul Absolute Neutrophils 2400 200 - 8000 /ul 12/22/2017 5:53 AM CDT 12/22/2017 6:37 AM CDT Dustin Rudolph DO LAB BLOOD ORDERABLES Final Res ult [facility] HISTORICAL RESULTS * (ABNORMAL) Basic metabolic panel (12/22/2017 5:53 AM CDT) Sodium 126(L) 135 - 145 mmol/L Potassium 4.2 3.3 - 5.1 mmol/L Comment:HEMOLYZED: Hemolysis interferes with the above test. Chloride 81(L) 96 - 108 mmol/L Carbon Dioxide 37(H) 22 - 32 mmol/L Anion Gap 8 7 - 16 Glucose 90 70 - 100 mg/dL BUN 13 8 - 23 mg/dL Creatinine 0.6 0.5 [...] or on dialysis @ Est GFR (Cockcroft-G) 101 ml/MIN 12/22/2017 8:49 AM [facility] [employer] [facility] HISTORICAL RESULTS Comment: Estimated GFR(Cockroft-Gault)is used to calculate patient medication dosage Calcium 8.6(L) 8.8 - 10.2 mg/dL 12/22/2017 5:53 AM CDT 12/22/2017 6:37 AM CDT Narrative [facility] HISTORICAL RESULTS - 12/22/2017 8:49 AM CDT us Dustin Rudolph DO LAB BLOOD ORDERABLES Final Res ult [facility] HISTORICAL RESULTS * Microbiology Specimen Report (Converted) (12/21/2017 9:20 AM CDT) 12/21/2017 9:20 AM CDT 12/21/2017 10:27 AM CDT Narrative [facility] HISTORICAL RESULTS - 12/21/2017 9:20 AM CDT Microbiology Specimen Report (Converted) SPECIMEN [id number] ?? COLLECTED: 2017-12-21 09:20:00 MM ?? REQ#: [id number] REQUESTING DR: Dustin Rudolph DO ?? SOURCE: URINE ?? SP DESC: CLEAN CATC COMMENT: Collected By mm ? Urine collection method Clean catch ? Indication(s) for ordering ?Increased freq/urgency ?? --- PROCEDURE --- ?--- RESULT --- ?? CULTURE URINE ??(Final) ??- ??Performed at [facility] ?* COLONY COUNT: 20,000 CFU/ml ?* MIXED GRAM POSITIVE ORGANISMS ?? * Organism 1 - KLEB PNEUMONIAE SSP PNEUMONIAE [KLE PNEUMO] ?* COLONY COUNT: >100,000 CFU/ml ?* SEE SUSCEPTIBILITY REPORT BELOW ?? * Organism 2 - ESCHERICHIA COLI [E COLI] ?* COLONY COUNT: >100,000 CFU/ml ?* SEE SUSCEPTIBILITY REPORT BELOW ? [KLE PNEUMO] ? M.I.C. ?RX AMOXICILLIN/CLAVULANIC ACID ?16 ?I AMPICILLIN ? >=32 ?R AMPICILLIN/SULBACTAM ? >=32 ?R CEFAZOLIN ?<=4 ? S CEFEPIME ? <=1 ? S CEFTRIAXONE ?<=1 ? S CIPROFLOXACIN ?2 ? I ERTAPENEM ?<=0.5 ? S GENTAMICIN ? <=1 ? S IMIPENEM ? <=0.25 ?S LEVOFLOXACIN ? 1 ? S NITROFURANTOIN ? 64 ?I PIPERACILLIN/TAZOBACTAM ?16 ?S TRIMETHOPRIM/SULFAMETHOXAZOLE ??>=320 ? R TOBRAMYCIN ? 8 ? I ??S=Susceptible ?? I=Intermediate ?? S=Resistant ??SDD=Susceptible Dose Dependent ?? N/R=No Report ?STEPHANY =Beta Lactamase ? [E COLI] ? M.I.C. ?RX AMOXICILLIN/CLAVULANIC ACID ?16 ?I AMPICILLIN ? >=32 ?R AMPICILLIN/SULBACTAM ? >=32 ?R CEFAZOLIN ?>=64 ?R CEFEPIME ? <=1 ? S CEFTRIAXONE ?<=1 ? S CIPROFLOXACIN ?<=0.25 ?S ERTAPENEM ?<=0.5 ? S GENTAMICIN ? <=1 ? S IMIPENEM ? <=0.25 ?S LEVOFLOXACIN ? <=0.12 ?S NITROFURANTOIN ? <=16 ?S PIPERACILLIN/TAZOBACTAM ?<=4 ? S TRIMETHOPRIM/SULFAMETHOXAZOLE ??>=320 ? R TOBRAMYCIN ? <=1 ? S ??S=Susceptible ?? I=Intermediate ?? S=Resistant ??SDD=Susceptible Dose Dependent ?? N/R=No Report ?STEPHANY =Beta Lactamase - [facility] ? [address] ? [place] [address] ? Wilian Diggs MD Procedure Note 10/15/2018 Microbiology Specimen Report (Converted) SPECIMEN [id number] COLLECTED: 2017-12-21 09:20:00 MM REQ#:[id number] REQUESTING DR: Dustin Rudolph DO SOURCE: URINE SP DESC: CLEAN CATC COMMENT: Collected By mm Urine collection method Clean catch Indication(s) for ordering Increased freq/urgency --- PROCEDURE --- --- RESULT --- CULTURE URINE (Final) - Performed at [facility] * COLONY COUNT: 20,000 CFU/ml * MIXED GRAM POSITIVE ORGANISMS * Organism 1 - KLEB PNEUMONIAE SSP PNEUMONIAE [KLE PNEUMO] * COLONY COUNT: >100,000 CFU/ml * SEE SUSCEPTIBILITY REPORT BELOW * Organism 2 - ESCHERICHIA COLI [E COLI] * COLONY COUNT: >100,000 CFU/ml * SEE SUSCEPTIBILITY REPORT BELOW [KLE PNEUMO] M.I.C. RX AMOXICILLIN/CLAVULANIC ACID 16 I AMPICILLIN >=32 R AMPICILLIN/SULBACTAM >=32 R CEFAZOLIN <=4 S CEFEPIME <=1 S CEFTRIAXONE <=1 S CIPROFLOXACIN 2 I ERTAPENEM <=0.5 S GENTAMICIN <=1 S IMIPENEM <=0.25 S LEVOFLOXACIN 1 S NITROFURANTOIN 64 I PIPERACILLIN/TAZOBACTAM 16 S TRIMETHOPRIM/SULFAMETHOXAZOLE >=320 R TOBRAMYCIN 8 I S=Susceptible I=Intermediate S=Resistant SDD=Susceptible Dose Dependent N/R=No Report STEPHANY =Beta Lactamase [E COLI] M.I.C. RX AMOXICILLIN/CLAVULANIC ACID 16 I AMPICILLIN >=32 R AMPICILLIN/SULBACTAM >=32 R CEFAZOLIN >=64 R CEFEPIME <=1 S CEFTRIAXONE <=1 S CIPROFLOXACIN <=0.25 S ERTAPENEM <=0.5 S GENTAMICIN <=1 S IMIPENEM <=0.25 S LEVOFLOXACIN <=0.12 S NITROFURANTOIN <=16 S PIPERACILLIN/TAZOBACTAM <=4 S TRIMETHOPRIM/SULFAMETHOXAZOLE >=320 R TOBRAMYCIN <=1 S S=Susceptible I=Intermediate S=Resistant SDD=Susceptible Dose Dependent N/R=No Report STEPHANY =Beta Lactamase - [address] [address] Wilian Diggs MD us Dustin Rudolph DO LAB BLOOD ORDERABLES Final Res ult [facility] HISTORICAL RESULTS * (ABNORMAL) CBC with auto differential (12/21/2017 8:09 AM CDT) [facility] WBC 6.1 3.5 - 10.5 x10 3/ul RBC 4.68 3.76 - 4.80 x10 6/ul Hemoglobin 13.9 11.0 - 15.0 g/dL Hct 39.8 33.0 - 43.0 % MCV 85.0 80.0 - 97.0 fl MCH 29.7 27.0 - 31.2 pg MCHC 34.9 31.8 - 35.4 g/dl RDW 14.6 11.6 - 14.8 % Plt Count 173 150 - 450 X10 3/ul MPV 10.5(H) 7.4 - 10.4 fl Neut % 39.6 37.0 - 85.0 % Immature Gran % 1.5 0.0 - 3.0 % Lymph % 41.2 5.0 - 45.0 % [place] % 15.7(H) 3.0 - 15.0 % Eos % 1.5 0.0 - 7.0 % Baso % 0.5 0.0 - 2.0 % Absolute Neuts (auto) 2.4 1.7 - 8.7 x10 3/ul 12/21/2017 8:28 AM [facility] HISTORICAL RESULTS Immature Gran # 0.1 0.0 - 0.3 x10 3/ul Absolute Lymphs (auto) 2.5 0.2 - 4.6 x10 3/ul Absolute Monos (auto) 1.0 0.1 - 1.5 x10 3/ul Absolute Eos (auto) 0.1 0.0 - 0.7 x10 3/ul Absolute Basos (auto) 0.0 0.0 - 0.2 x10 3/ul Nucleat RBC Rel Count 0.0 0 - 3 #/100WBC Absolute Nucleated RBC 0.00 x10 3/ul Absolute Neutrophils 2500 200 - 8000 /ul 12/21/2017 8:09 AM CDT 12/21/2017 8:13 AM CDT Chas Wheeler MD LAB BLOOD ORDERABLES Fin al Result [facility] HISTORICAL RESULTS * (ABNORMAL) Comprehensive metabolic panel (12/21/2017 8:09 AM CDT) Sodium 127(L) 135 - 145 mmol/L Potassium 3.5 3.3 - 5.1 mmol/L Chloride 82(L) 96 - 108 mmol/L Carbon Dioxide 34(H) 22 - 32 mmol/L Anion Gap 11 7 - 16 Glucose 93 70 - 100 mg/dL BUN 11 8 - 23 mg/dL Creatinine 0.6 0.5 [...] or on dialysis @ Est GFR (Cockcroft-G) 101 ml/MIN Comment: Estimated GFR(Cockroft-Gault)is used to calculate patient medication dosage Calcium 8.6(L) 8.8 - 10.2 mg/dL Total Protein 6.5 6.4 - 8.3 g/dL Albumin 3.5 3.5 - 5.2 g/dL Globulin 3.0 2.3 - 3.5 gm/dL Albumin/Globulin Ratio 1.2 1.1 - 1.8 Total Bilirubin 0.4 0.0 - 1.2 mg/dL AST 35(H) 0 - 32 U/L ALT 15 0 - 33 U/L Alkaline Phosphatase 52 35 - 104 U/L 12/21/2017 8:09 AM CDT 12/21/2017 8:13 AM CDT Narrative [facility] HISTORICAL RESULTS - 12/21/2017 8:38 AM CDT Redraw, 1st specimens hemolyzed and/or clotted. us Chas Wheeler MD LAB BLOOD ORDERABLES Fin al Result [facility] HISTORICAL RESULTS * Valproic acid level, total (12/20/2017 2:45 PM CDT) Valproic Acid 97.1 50.0 - 100.0 ug/mL 12/20/2017 2:45 PM CDT 12/20/2017 3:14 PM CDT us Dustin Rudolph DO LAB BLOOD ORDERABLES Final Res ult [facility] HISTORICAL RESULTS * (ABNORMAL) Creatine kinase (CK), total (12/20/2017 6:56 AM CDT) Creatine Kinase 435(H) 20 - 180 U/L Comment:Results reviewed 12/20/2017 6:56 AM CDT 12/20/2017 7:01 AM CDT Chas Wheeler MD LAB BLOOD ORDERABLES Fin al Result [facility] HISTORICAL RESULTS * (ABNORMAL) CBC with auto differential (12/20/2017 6:56 AM CDT) Pathologist [facility] WBC 7.6 3.5 - 10.5 x10 3/ul Comment:Results Reviewed RBC 4.85(H) 3.76 - 4.80 x10 6/ul Hemoglobin 14.6 11.0 - 15.0 g/dL Hct 40.8 33.0 - 43.0 % MCV 84.1 80.0 - 97.0 fl MCH 30.1 27.0 - 31.2 pg MCHC 35.8(H) 31.8 - 35.4 g/dl RDW 14.6 11.6 - 14.8 % Plt Count 133(L) 150 - 450 X10 3/ul 12/20/2017 7:14 AM [facility] HISTORICAL RESULTS MPV 10.3 7.4 - 10.4 fl Neut % 44.6 37.0 - 85.0 % Immature Gran % 2.0 0.0 - 3.0 % Lymph % 37.6 5.0 - 45.0 % [place] % 13.7 3.0 - 15.0 % Eos % 1.2 0.0 - 7.0 % Baso % 0.9 0.0 - 2.0 % Absolute Neuts (auto) 3.4 1.7 - 8.7 x10 3/ul Immature Gran # 0.2 0.0 - 0.3 x10 3/ul Absolute Lymphs (auto) 2.9 0.2 - 4.6 x10 3/ul Absolute Monos (auto) 1.0 0.1 - 1.5 x10 3/ul Absolute Eos (auto) 0.1 0.0 - 0.7 x10 3/ul Absolute Basos (auto) 0.1 0.0 - 0.2 x10 3/ul Nucleat RBC Rel Count 0.0 0 - 3 #/100WBC Absolute Nucleated RBC 0.00 x10 3/ul Absolute Neutrophils 3600 200 - 8000 /ul 12/20/2017 6:56 AM CDT 12/20/2017 7:01 AM CDT us Chas Wheeler MD LAB BLOOD ORDERABLES Fin al Result [facility] HISTORICAL RESULTS * (ABNORMAL) Basic metabolic panel (12/20/2017 6:56 AM CDT) Sodium 125(L) 135 - 145 mmol/L Potassium 3.5 3.3 - 5.1 mmol/L Chloride 81(L) 96 - 108 mmol/L Carbon Dioxide 30 22 - 32 mmol/L Anion Gap 14 7 - 16 Glucose 87 70 - 100 mg/dL BUN 8 8 - 23 mg/dL Creatinine 0.5 0.5 - 1.1 mg/dL Comment: NOTE: Estimated [...] or on dialysis @ Est GFR (Cockcroft-G) 122 ml/MIN Comment: Estimated GFR(Cockroft-Gault)is used to calculate patient medication dosage Calcium 8.2(L) 8.8 - 10.2 mg/dL 12/20/2017 6:56 AM CDT 12/20/2017 7:01 AM CDT us Chas Wheeler MD LAB BLOOD ORDERABLES Fin al Result Performing Organization Address [facility] de Phone Number [facility] HISTORICAL RESULTS * Sodium, urine, random (12/19/2017 2:10 PM CDT) Pathologist [facility] Ur Random Sodium 86 mmol/L Comment:Random Specimen: No reference ranges 12/19/2017 2:10 PM CDT 12/19/2017 2:42 PM CDT Narrative [facility] HISTORICAL RESULTS - 12/19/2017 3:03 PM CDT Collected By Chas Wheeler MD LAB URINE ORDERABLES Fin al Result Performing Organization Address [facility] de Phone Number [facility] HISTORICAL RESULTS * (ABNORMAL) Osmolality, urine (12/19/2017 2:10 PM CDT) Urine Osmolality 354(L) 500 - 800 mOsm/kg 12/19/2017 2:10 PM CDT 12/19/2017 2:42 PM CDT Chas Wheeler MD LAB URINE ORDERABLES Fin al Result Performing Organization Address [facility] de Phone Number [facility] HISTORICAL RESULTS * Thyroid Panel (12/19/2017 6:54 AM CDT) TSH 2.21 0.27 - 4.20 uIU/mL Free T4 0.96 0.93 - 1.70 ng/dL 12/19/2017 6:54 AM CDT 12/19/2017 7:12 AM CDT Chas Wheeler MD LAB BLOOD ORDERABLES Fin al Result Performing Organization Address [facility] de Phone Number [facility] HISTORICAL RESULTS * (ABNORMAL) Lipid panel (12/19/2017 6:54 AM CDT) Triglycerides 200(H) 0 - 149 mg/dL Comment: National Lipid Association/NCEP Guidelines: ?? Normal ?< 150 mg/dL ?? Borderline high ?? 150-199 mg/dL ?? High ?200-499 mg/dL ?? Very High ? >=500 mg/dL Cholesterol 135 0 - 199 mg/dL Comment: National Lipid Association/NCEP Guidelines: Desirable ? < 200 mg/dL Borderline high: ??200-239 mg/dL High Risk: ?>=240 mg/dL HDL Cholesterol 36 mg/dL 8 7:44 AM [facility] HISTORICAL RESULTS Comment: Reference Ranges: ? Males: >=40 mg/dL ? Females: >=50 mg/dL LDL Cholesterol, Calc 59 0 - 129 mg/dL Comment: National Lipid Association/NCEP Guidelines: ??Optimal ? < 100 mg/dL ??Near Optimal ?100-129 mg/dL ??Borderline high 130-159 mg/dL ??High ?>=160 mg/dL Cholesterol/HDL Ratio 3.8 Comment: Optimal ??< 3.5:1 High ? > 5:1 12/19/2017 6:54 AM CDT 12/19/2017 7:12 AM CDT Chas Wheeler MD LAB BLOOD ORDERABLES Fin al Result Performing Organization Address [facility] de Phone Number [facility] HISTORICAL RESULTS * Osmolality, blood (12/19/2017 6:54 AM CDT) Serum Osmolality 275 270 - 300 mOsm/kg Comment:[phone] 12/19/2017 6:54 AM CDT 12/19/2017 7:12 AM CDT Chas Wheeler MD LAB BLOOD ORDERABLES Fin al Result Performing Organization Address [facility] de Phone Number [facility] HISTORICAL RESULTS * (ABNORMAL) Comprehensive metabolic panel (12/19/2017 6:54 AM CDT) Sodium 131(L) 135 - 145 mmol/L Potassium 3.7 3.3 - 5.1 mmol/L Chloride 90(L) 96 - 108 mmol/L Carbon Dioxide 32 22 - 32 mmol/L Anion Gap 9 7 - 16 Glucose 80 70 - 100 mg/dL BUN 10 8 - 23 mg/dL Creatinine 0.5 0.5 - 1.1 mg/dL Comment: NOTE: Estimated [...] or on dialysis @ Est GFR (Cockcroft-G) 122 ml/MIN Comment: Estimated GFR(Cockroft-Gault)is used to calculate patient medication dosage Calcium 9.0 8.8 - 10.2 mg/dL Total Protein 6.5 6.4 - 8.3 g/dL Albumin 3.6 3.5 - 5.2 g/dL Globulin 2.9 2.3 - 3.5 gm/dL Albumin/Globulin Ratio 1.2 1.1 - 1.8 Total Bilirubin 0.3 0.0 - 1.2 mg/dL AST 37(H) 0 - 32 U/L ALT 13 0 - 33 U/L Alkaline Phosphatase 59 35 - 104 U/L 12/19/2017 6:54 AM CDT 12/19/2017 7:12 AM CDT us Chas Wheeler MD LAB BLOOD ORDERABLES Fin al Result [facility] HISTORICAL RESULTS * (ABNORMAL) CBC with auto differential (12/19/2017 6:54 AM CDT) WBC 10.9(H) 3.5 - 10.5 x10 3/ul RBC 4.63 3.76 - 4.80 x10 6/ul Hemoglobin 14.0 11.0 - 15.0 g/dL Hct 41.6 33.0 - 43.0 % MCV 89.8 80.0 - 97.0 fl MCH 30.2 27.0 - 31.2 pg MCHC 33.7 31.8 - 35.4 g/dl RDW 14.8 11.6 - 14.8 % Plt Count 171 150 - 450 X10 3/ul MPV 10.9(H) 7.4 - 10.4 fl Neut % 54.9 37.0 - 85.0 % Immature Gran % 1.3 0.0 - 3.0 % Lymph % 29.4 5.0 - 45.0 % [place] % 13.8 3.0 - 15.0 % Eos % 0.3 0.0 - 7.0 % Baso % 0.3 0.0 - 2.0 % Absolute Neuts (auto) 6.0 1.7 - 8.7 x10 3/ul Immature Gran # 0.1 0.0 - 0.3 x10 3/ul Absolute Lymphs (auto) 3.2 0.2 - 4.6 x10 3/ul Absolute Monos (auto) 1.5 0.1 - 1.5 x10 3/ul Absolute Eos (auto) 0.0 0.0 - 0.7 x10 3/ul Absolute Basos (auto) 0.0 0.0 - 0.2 x10 3/ul Nucleat RBC Rel Count 0.0 0 - 3 #/100WBC Absolute Nucleated RBC 0.00 x10 3/ul Absolute Neutrophils 6100 200 - 8000 /ul 12/19/2017 6:54 AM CDT 12/19/2017 7:12 AM CDT Chas Wheeler MD LAB BLOOD ORDERABLES Fin al Result [facility] HISTORICAL RESULTS * CARDIOLOGY REPORT (12/19/2017 12:00 AM CDT) Anatomical Region Laterality Modality Other Narrative 12/19/2017 12:00 AM CDT Ordered by an unspecified provider. Historical Provider [facility] Final Result * Transthoracic Echo Complete W Doppler/CF (12/19/2017 12:00 AM CDT) Anatomical Region Laterality Modality Ultrasound 12/19/2017 Narrative 12/19/2017 4:42 PM CDT Results viewable in EMR, Cardiovascular [EOD] Procedure Note Provider, Historical, - 12/10/2020 Results viewable in EMR, Cardiovascular [EOD] Sultan Osmany Pearson MD CV ECHO PROCEDURES Final Resu lt * (ABNORMAL) Creatine kinase (CK), total (12/18/2017 9:35 PM CDT) Creatine Kinase 592(H) 20 - 180 U/L Comment:Results Reviewed 12/18/2017 9:35 PM CDT 12/18/2017 9:53 PM CDT us Chas Wheeler MD LAB BLOOD ORDERABLES Fin al Result [facility] HISTORICAL RESULTS * (ABNORMAL) Urinalysis, macro and micro (12/18/2017 3:06 PM CDT) Pathologist [facility] Ur Collection Type OTHER Urine Color YELLOW YELLOW Urine Clarity Slightly-Heidy udy CLEAR Urine Glucose (UA) NORMAL NORMAL mg/dL Urine Bilirubin NEGATIVE NEGATIVE mg/dl Urine Ketones 5(H) NEGATIVE mg/dL Ur Specific [place] 1.012 1.005 - 1.025 Urine Blood 0.2(H) NEGATIVE mg/dl Urine pH 6.0 5.0 - 8.0 Urine Protein 100(H) NEGATIVE mg/dL Urine Urobilinogen 2(H) NORMAL mg/dL Urine Nitrite POSITIVE(H) NEGATIVE Ur Leukocyte Esterase NEGATIVE NEGATIVE Lizeth/ul Ur Microscopic Review Indicated or Ordered Urine RBC 13 0 - 2 /HPF Urine WBC 7 0 - 2 /HPF Urine Bacteria Mod /HPF Urine Mucus Mod /LPF Ur Squamous Epith Cells Rare /HPF Hyaline Casts 2 0 - 2 /LPF 12/18/2017 3:06 PM CDT 12/18/2017 3:20 PM CDT Narrative [facility] HISTORICAL RESULTS - 12/18/2017 3:35 PM CDT Robert Castellanos DO LAB URINE ORDERABLES Final Result Performing Organization Address [facility]/State/ZIP Co de Phone Number [facility] HISTORICAL RESULTS * Troponin I (12/18/2017 12:51 PM CDT) Troponin I < 0.300 0.000 - 0.300 ng/mL Comment: Reference using SHANIA Chemiluminescence ? Negative: Repeat in 4-6 hours as indicated. 12/18/2017 12:5 1 PM CDT 12/18/2017 12:54 PM CDT Robert Castellanos DO LAB BLOOD ORDERABLES Final Result [facility] HISTORICAL RESULTS * Protime-INR (12/18/2017 12:51 PM CDT) PT 13.5 11.8 - 14.5 SECONDS INR 1.03 Comment: Recommended Therapeutic range for Oral Anticoagulant Therapy No anti-coagulation therapy ? Normal Range: ?0.8-1.4 Anti-coagulation therapy ? Low intensity therapy ?2.0-3.0 ? High intensity therapy ?? 2.5-3.5 Critical Value ? Greater than or equal to 5.0 Patients should be monitored for serious bleeding. ?? 12/18/2017 12:5 1 PM CDT 12/18/2017 12:54 PM CDT us Robert Castellanos DO LAB BLOOD ORDERABLES Final Result [facility] HISTORICAL RESULTS * (ABNORMAL) Comprehensive metabolic panel (12/18/2017 12:51 PM CDT) Sodium 127(L) 135 - 145 mmol/L Potassium 3.9 3.3 - 5.1 mmol/L Chloride 87(L) 96 - 108 mmol/L Carbon Dioxide 24 22 - 32 mmol/L Anion Gap 16 7 - 16 Glucose 129(H) 70 - 100 mg/dL BUN 13 8 - 23 mg/dL Creatinine 0.7 0.5 - 1.1 mg/dL Comment: NOTE: Estimated GFR (Cockroft-Gault) will NOT be calculated unless patient Height and Weight were entered. Also, Kidney Disease Stage (GFR) and Estimated GFR (Cockroft-Gault) will NOT be calculated if Creatinine result is <0.2. Kidney Disease Stage 89 mL/MIN Comment: NOTE; ??The GFR is an [...] or on dialysis @ Est GFR (Cockcroft-G) 86 ml/MIN Comment: Estimated GFR(Cockroft-Gault)is used to calculate patient medication dosage Calcium 8.8 8.8 - 10.2 mg/dL Total Protein 6.8 6.4 - 8.3 g/dL Albumin 3.6 3.5 - 5.2 g/dL Globulin 3.2 2.3 - 3.5 gm/dL Albumin/Globulin Ratio 1.1 1.1 - 1.8 Total Bilirubin 0.4 0.0 - 1.2 mg/dL AST 27 0 - 32 U/L Comment: HEMOLYZED: Hemolysis interferes with the above test. ?? Specimen slightly hemolyzed. ALT 11 0 - 33 U/L Alkaline Phosphatase 68 35 - 104 U/L 12/18/2017 12:5 1 PM CDT 12/18/2017 12:54 PM CDT Robert Catsellanos DO LAB BLOOD ORDERABLES Final Result Performing Organization Address [facility] Co de Phone Number [facility] HISTORICAL RESULTS * (ABNORMAL) Creatine kinase (CK), total (12/18/2017 12:51 PM CDT) Creatine Kinase 318(H) 20 - 180 U/L 12/18/2017 12:5 1 PM CDT 12/18/2017 12:54 PM CDT Robert Castellanos DO LAB BLOOD ORDERABLES Final Result Performing Organization Address [facility] Co de Phone Number [facility] HISTORICAL RESULTS * (ABNORMAL) CBC with auto differential (12/18/2017 12:51 PM CDT) WBC 12.5(H) 3.5 - 10.5 x10 3/ul RBC 4.72 3.76 - 4.80 x10 6/ul Hemoglobin 14.1 11.0 - 15.0 g/dL Hct 40.6 33.0 - 43.0 % MCV 86.0 80.0 - 97.0 fl MCH 29.9 27.0 - 31.2 pg MCHC 34.7 31.8 - 35.4 g/dl RDW 14.4 11.6 - 14.8 % Plt Count 166 150 - 450 X10 3/ul MPV 10.6(H) 7.4 - 10.4 fl Neut % 76.9 37.0 - 85.0 % Immature Gran % 1.6 0.0 - 3.0 % Lymph % 8.7 5.0 - 45.0 % [place] % 12.5 3.0 - 15.0 % Eos % 0.1 0.0 - 7.0 % Baso % 0.2 0.0 - 2.0 % Absolute Neuts (auto) 9.6(H) 1.7 - 8.7 x10 3/ul Immature Gran # 0.2 0.0 - 0.3 x10 3/ul Absolute Lymphs (auto) 1.1 0.2 - 4.6 x10 3/ul Absolute Monos (auto) 1.6(H) 0.1 - 1.5 x10 3/ul Absolute Eos (auto) 0.0 0.0 - 0.7 x10 3/ul Absolute Basos (auto) 0.0 0.0 - 0.2 x10 3/ul Nucleat RBC Rel Count 0.0 0 - 3 #/100WBC Absolute Nucleated RBC 0.00 x10 3/ul Absolute Neutrophils 9800(H) 200 - 8000 /ul 12/18/2017 12:5 1 PM CDT 12/18/2017 12:54 PM CDT Robert Csatellanos DO LAB BLOOD ORDERABLES Final Result [facility] HISTORICAL RESULTS * XR Knee Right 1 or 2 Views (12/18/2017 12:00 AM CDT) Anatomical Region Laterality Modality Lower Extremities, Knee Right Radiogra phic Imaging 12/18/2017 Impressions 12/18/2017 3:31 PM CDT ??Mild-moderate osteoarthritis of the knee, worse in the patellofemoral compartment. 12/18/2017 3:28 PM Tor Byrnes M.D. AT: AT D: ??12/18/2017 3:28 PM T: ??12/18/2017 3:28 PM Report ID: [id number] Reading Location: ??[id number] [EOD] Narrative 12/18/2017 3:31 PM CDT EXAM DESCRIPTION: Knee RT 1 or 2 View (Special) COMPLETED DATE/TIME: ??12/18/2017 3:21 pm REASON FOR STUDY: ??FELL LAST NIGHT, PAIN TO BILATERAL KNEES, SWOLLEN WITH ABRASIONS TECHNIQUE: ??AP, cross-table lateral radiographic views acquired of the right knee. COMPARISON: ??None FINDINGS: BONES/JOINTS: There is mild-moderate joint space narrowing within the medial and lateral central weight-bearing compartments with mild marginal osteophyte formation. ??There is no acute fracture. ??Joint space narrowing within the patellofemoral compartment, moderate is noted with marginal osteophyte formation. SOFT TISSUES: Soft tissue swelling about the knee is noted. ??No significant fullness in the suprapatellar space is seen. OTHER: No other significant finding. Procedure Note Provider, MD Lucille - 12/10/2020 EXAM DESCRIPTION: Knee RT 1 or 2 View (Special) COMPLETED DATE/TIME: 12/18/2017 3:21 pm REASON FOR STUDY: FELL LAST NIGHT, PAIN TO BILATERAL KNEES, SWOLLEN WITH ABRASIONS TECHNIQUE: AP, cross-table lateral radiographic views acquired of theright knee. COMPARISON: None FINDINGS: BONES/JOINTS: There is mild-moderate joint space narrowing within themedial and lateral central weight-bearing compartments with mild marginalosteophyte formation. There is no acute fracture. Joint space narrowing within the patellofemoral compartment, moderate is noted with marginal osteophyte formation. SOFT TISSUES: Soft tissue swelling about the knee is noted. Nosignificant fullness in the suprapatellar space is seen. OTHER: No other significant finding. IMPRESSION: Mild-moderate osteoarthritis of the knee, worse in the patellofemoral compartment. 12/18/2017 3:28 PM Tor Byrnes M.D. AT: AT Report ID: [id number] Reading Location: [id number] [EOD] us Robert Castellanos DO IMG XR PROCEDURES Final Res ult * CT Abdomen Pelvis WO Contrast (12/18/2017 12:00 AM CDT) Anatomical Region Laterality Modality Body N/A Computed Tomogra phy 12/18/2017 Impressions 12/18/2017 3:43 PM CDT ??No interval acute intra-or intrapelvic pathology. Bilateral tiny nonobstructing renal calculi. No significant change compared to 11/16/2017. 12/18/2017 3:39 PM Ok Love M.D. KK: KK D: ??12/18/2017 3:39 PM T: ??12/18/2017 3:39 PM Report ID: [id number] Reading Location: ??[id number] [EOD] Narrative 12/18/2017 3:43 PM CDT EXAM DESCRIPTION: ??CT Abd/Pelvis WO IV Contrast COMPLETED DATE/TIME: ??12/18/2017 2:56 pm REASON FOR STUDY: ??fall, multiple trauma, back pain, poor historian TECHNIQUE: ??CT scan of the abdomen and pelvis performed without intravenous and without oral contrast using helical scanning technique. Reconstructed coronal and sagittal MPR images reviewed. All images stored on PACS. The sensitivity for detection of solid visceral lesions is diminished without the use of intravenous contrast. Automated exposure control was used as a dose optimization technique for this examination. COMPARISON: ??Comparison to CT of the chest performed same date. ??Comparison to prior unenhanced CT of the abdomen and pelvis performed 11/16/2017. FINDINGS: ABDOMEN/PELVIS: LOWER CHEST: No significant pulmonary abnormalities. No effusion. LIVER: Normal size. ??No identified cystic or solid masses. GALLBLADDER: No stones identified. No wall thickening or inflammatory changes. BILE DUCTS: No intrahepatic or extrahepatic ductal dilatation. SPLEEN: Normal size. ??No focal lesions. PANCREAS: A trophic pancreas with diffuse benign fatty infiltration, without suspicious pancreatic masses or evidence of pancreatic duct dilatation. ??No suspicious peripancreatic morphology. ADRENALS: Normal. KIDNEYS/URINARY TRACT: Bilateral similar appearing tiny, nonobstructing renal calculi. ??Negative for renal obstruction. ??Negative for ureteral or bladder calculi. ??Bladder is within normal limits. ??Benign pelvic calcified phleboliths. GI: No dilated bowel loops. No obvious wall thickening. ??Normal appendix. ??No significant diverticular disease. PERITONEUM: No ascites or free air. RETROPERITONEUM: No mass or adenopathy. REPRODUCTIVE: No significant abnormality. VASCULATURE: Atherosclerotic changes of the abdominal aorta without aneurysm formation. MUSCULOSKELETAL: No acute finding. OTHER: No other abnormality. Procedure Note Provider, MD Lucille - 12/10/2020 EXAM DESCRIPTION: CT Abd/Pelvis WO IV Contrast COMPLETED DATE/TIME: 12/18/2017 2:56 pm REASON FOR STUDY: fall, multiple trauma, back pain, poor historian TECHNIQUE: CT scan of the abdomen and pelvis performed withoutintravenous and without oral contrast using helical scanning technique. Reconstructed coronal and sagittal MPR images reviewed. All images stored on PACS. The sensitivity for detection of solid visceral lesions is diminished withoutthe use of intravenous contrast. Automated exposure control was used as a dose optimization technique for this examination. COMPARISON: Comparison to CT of the chest performed same date.Comparison to prior unenhanced CT of the abdomen and pelvis performed 11/16/2017. FINDINGS: ABDOMEN/PELVIS: LOWER CHEST: No significant pulmonary abnormalities. No effusion. LIVER: Normal size. No identified cystic or solid masses. GALLBLADDER: No stones identified. No wall thickening or inflammatorychanges. BILE DUCTS: No intrahepatic or extrahepatic ductal dilatation. SPLEEN: Normal size. No focal lesions. PANCREAS: A trophic pancreas with diffuse benign fatty infiltration,without suspicious pancreatic masses or evidence of pancreatic duct dilatation.No suspicious peripancreatic morphology. ADRENALS: Normal. KIDNEYS/URINARY TRACT: Bilateral similar appearing tiny, nonobstructingrenal calculi. Negative for renal obstruction. Negative for ureteral orbladder calculi. Bladder is within normal limits. Benign pelvic calcified phleboliths. GI: No dilated bowel loops. No obvious wall thickening. Normal appendix.No significant diverticular disease. PERITONEUM: No ascites or free air. RETROPERITONEUM: No mass or adenopathy. REPRODUCTIVE: No significant abnormality. VASCULATURE: Atherosclerotic changes of the abdominal aorta withoutaneurysm formation. MUSCULOSKELETAL: No acute finding. OTHER: No other abnormality. IMPRESSION: No interval acute intra-or intrapelvic pathology. Bilateral tiny nonobstructing renal calculi. No significant change compared to 11/16/2017. 12/18/2017 3:39 PM Ok Love M.D. KK: SANTOS Report ID: [id number] Reading Location: [id number] [EOD] us Robert Castellanos DO IMG CT PROCEDURES Final Res ult * CT Head WO Contrast (12/18/2017 12:00 AM CDT) Anatomical Region Laterality Modality Head and Neck N/A Computed Tomogra phy 12/18/2017 Impressions 12/18/2017 3:24 PM CDT ?? 1.No acute intracranial hemorrhage or ischemia. 2.Mild-moderate generalized cerebral and cerebellar atrophy, microvascular ischemic disease. 12/18/2017 3:21 PM Tor Byrnes M.D. AT: AT D: ??12/18/2017 3:21 PM T: ??12/18/2017 3:21 PM Report ID: [id number] Reading Location: ??[id number] [EOD] Narrative 12/18/2017 3:24 PM CDT EXAM DESCRIPTION: ??CT Head WO IV Contrast COMPLETED DATE/TIME: ??12/18/2017 2:56 pm REASON FOR STUDY: ??Headache after a fall last night. TECHNIQUE: ??Axial images acquired through the brain without intravenous contrast. ??Images stored on PACS. Automated exposure control was used as a dose optimization technique for this examination. COMPARISON: ??05/11/2007 FINDINGS: BRAIN: No hemorrhage, edema or mass effect. No recent infarct. Areas of decreased attenuation within the periventricular white matter are present. ?? Mild-moderate generalized cerebral and cerebellar volume loss is present. ?? There is no midline shift. ?? EXTRA-AXIAL SPACES: No fluid collections. No masses. CALVARIUM: No fracture. PARANASAL SINUSES AND MASTOIDS: No fluid or mucosal thickening. ORBITS: Globes appear symmetric. ??Soft tissue swelling over the orbits is noted. ??Please see separately dictated CT maxillofacial bones for further comments. ??Edema is present within the soft tissues of the scalp. OTHER: No other significant abnormality. Procedure Note Provider, MD Lucille - 12/10/2020 EXAM DESCRIPTION: CT Head WO IV Contrast COMPLETED DATE/TIME: 12/18/2017 2:56 pm REASON FOR STUDY: Headache after a fall last night. TECHNIQUE: Axial images acquired through the brain without intravenous contrast. Images stored on PACS. Automated exposure control was used as a dose optimization technique for this examination. COMPARISON: 05/11/2007 FINDINGS: BRAIN: No hemorrhage, edema or mass effect. No recent infarct. Areas of decreased attenuation within the periventricular white matter are present. Mild-moderate generalized cerebral and cerebellar volume loss is present. There is no midline shift. EXTRA-AXIAL SPACES: No fluid collections. No masses. CALVARIUM: No fracture. PARANASAL SINUSES AND MASTOIDS: No fluid or mucosal thickening. ORBITS: Globes appear symmetric. Soft tissue swelling over the orbits is noted. Please see separately dictated CT maxillofacial bones for further comments. Edema is present within the soft tissues of the scalp. OTHER: No other significant abnormality. IMPRESSION: 1.No acute intracranial hemorrhage or ischemia. 2.Mild-moderate generalized cerebral and cerebellar atrophy, microvascular ischemic disease. 12/18/2017 3:21 PM Tor Byrnes M.D. AT: AT Report ID: [id number] Reading Location: [id number] [EOD] Robert Castellanos DO IMG CT PROCEDURES Final Res ult * XR Knee Left 1 or 2 Views (12/18/2017 12:00 AM CDT) Anatomical Region Laterality Modality Lower Extremities, [facility]nee [facility] 12/18/2017 Impressions 12/18/2017 3:28 PM CDT ?? 1.No acute fracture. 2.Postoperative changes of total left knee arthroplasty without evidence of loosening. 12/18/2017 3:25 PM Tor Byrnes M.D. AT: AT D: ??12/18/2017 3:25 PM T: ??12/18/2017 3:25 PM Report ID: [id number] Reading Location: ??[id number] [EOD] Narrative 12/18/2017 3:28 PM CDT EXAM DESCRIPTION: Knee LT 1 or 2 View (Special) COMPLETED DATE/TIME: ??12/18/2017 3:21 pm REASON FOR STUDY: ??FELL LAST NIGHT, PAIN TO BILATERAL KNEES, SWOLLEN WITH ABRASIONS TECHNIQUE: ??AP, lateral radiographic views acquired of the left knee. COMPARISON: ??03/18/2016 FINDINGS: BONES/JOINTS: Postoperative changes of total knee arthroplasty are noted. ?? These appear similar to the prior examination. ??No significant lucency is present surrounding the prosthetic components to suggest loosening. ??There is no fracture. SOFT TISSUES: Soft tissue swelling of the knee is noted. ??There is no evidence of fullness in the suprapatellar space to suggest a knee joint effusion. ??No radiopaque foreign bodies are seen. OTHER: No other significant finding. Procedure Note Provider, MD Lucille - 12/10/2020 EXAM DESCRIPTION: Knee LT 1 or 2 View (Special) COMPLETED DATE/TIME: 12/18/2017 3:21 pm REASON FOR STUDY: FELL LAST NIGHT, PAIN TO BILATERAL KNEES, SWOLLEN WITH ABRASIONS TECHNIQUE: AP, lateral radiographic views acquired of the left knee. COMPARISON: 03/18/2016 FINDINGS: BONES/JOINTS: Postoperative changes of total knee arthroplasty are noted. These appear similar to the prior examination. No significant lucency is present surrounding the prosthetic components to suggest loosening. Thereis no fracture. SOFT TISSUES: Soft tissue swelling of the knee is noted. There is noevidence of fullness in the suprapatellar space to suggest a knee joint effusion.No radiopaque foreign bodies are seen. OTHER: No other significant finding. IMPRESSION: 1.No acute fracture. 2.Postoperative changes of total left knee arthroplasty without evidenceof loosening. 12/18/2017 3:25 PM Tor Byrnes M.D. AT: AT Report ID: [id number] Reading Location: [place] [id number] [EOD] Robert Castellanos DO IMG XR PROCEDURES Final Res ult * CT Cervical Spine WO Contrast (12/18/2017 12:00 AM CDT) Anatomical Region Laterality Modality Spine N/A Computed Tomogra phy 12/18/2017 Impressions 12/18/2017 3:20 PM CDT ??No acute abnormality of cervical spine. ??Ckphmxjg-jw-xqifau multilevel facet arthritis. ??Moderate multilevel degenerative disc disease. THIS IS AN ELECTRONICALLY VERIFIED FINAL REPORT 12/18/2017 3:17 PM - Electronically signed by Wallace Arellano M.D. NH: RONNI D: ??12/18/2017 3:17 PM T: ??12/18/2017 3:17 PM Report ID: [id number] Reading Location: ??[id number] [EOD] Narrative 12/18/2017 3:20 PM CDT EXAM DESCRIPTION: ??CT C-Spine WO IV Contrast COMPLETED DATE/TIME: ??12/18/2017 2:56 pm REASON FOR STUDY: ??Fell last night and hit head, neck pain. TECHNIQUE: ??Axial images through the cervical spine with sagittal and coronal reformatted images. Automated exposure control was used as a dose optimization technique for this examination. COMPARISON: ??Cervical spine radiographs 01/21/2009 FINDINGS: ALIGNMENT: Within normal limits. VERTEBRAE: No fracture. Vertebral body heights well-maintained. ?? Eswowrda-oy-adidvd multilevel facet arthritis. DISCS: Ornu-ia-jvbaindd multilevel loss of disc heights, most pronounced at C5-6 and C6-7 with marginal osteophytes. HARDWARE: None in the spine. UPPER THORACIC: No acute abnormality. SKULL BASE: No significant finding. LUNG APICES: No significant abnormality. NECK SOFT TISSUES: Suboccipital subcutaneous edema. OTHER: No other significant findings. Procedure Note Provider, MD Lucille - 12/10/2020 EXAM DESCRIPTION: CT C-Spine WO IV Contrast COMPLETED DATE/TIME: 12/18/2017 2:56 pm REASON FOR STUDY: Fell last night and hit head, neck pain. TECHNIQUE: Axial images through the cervical spine with sagittal andcoronal reformatted images. Automated exposure control was used as a doseoptimization technique for this examination. COMPARISON: Cervical spine radiographs 01/21/2009 FINDINGS: ALIGNMENT: Within normal limits. VERTEBRAE: No fracture. Vertebral body heights well-maintained. Ucgzpzvc-hl-tslauu multilevel facet arthritis. DISCS: Ntty-fk-wprqspyr multilevel loss of disc heights, most pronouncedat C5-6 and C6-7 with marginal osteophytes. HARDWARE: None in the spine. UPPER THORACIC: No acute abnormality. SKULL BASE: No significant finding. LUNG APICES: No significant abnormality. NECK SOFT TISSUES: Suboccipital subcutaneous edema. OTHER: No other significant findings. IMPRESSION: No acute abnormality of cervical spine. Vubpetfl-es-wocdnt multilevel facet arthritis. Moderate multilevel degenerative discdisease. THIS IS AN ELECTRONICALLY VERIFIED FINAL REPORT 12/18/2017 3:17 PM - Electronically signed by Wallace Arellano M.D. NH: NH Report ID: [id number] Reading Location: [id number] [EOD] Robert Castellanos DO IMG CT PROCEDURES Final Res ult * XR Foot Left 2 Views (12/18/2017 12:00 AM CDT) Anatomical Region Laterality Modality Lower Extremities, Foot Left Radiogra [facility] Imaging 12/18/2017 Impressions 12/18/2017 2:40 PM CDT ??No acute osseous abnormality. ?? 12/18/2017 2:37 PM Jalen Savage M.D. CR: CR D: ??12/18/2017 2:37 PM T: ??12/18/2017 2:37 PM Report ID: [id number] Reading Location: ??[id number] [EOD] Narrative 12/18/2017 2:40 PM CDT EXAM DESCRIPTION: ??Foot LT 2 View COMPLETED DATE/TIME: ??12/18/2017 1:58 pm REASON FOR STUDY: ??pain in 1st/2nd toes/ fall in bathroom this am TECHNIQUE: ??AP, lateral ??2 radiographic views acquired of the left foot. COMPARISON: ??None available FINDINGS: BONES/JOINTS: No recent fracture. ??There is screw fixation of the great toe metatarsal-phalangeal joint with severe joint space narrowing. ??There has been previous internal fixation of the distal fibula and medial malleolus with anatomic alignment. SOFT TISSUES: Unremarkable. OTHER: No other significant finding. Procedure Note Provider, MD Lucille - 12/10/2020 EXAM DESCRIPTION: Foot LT 2 View COMPLETED DATE/TIME: 12/18/2017 1:58 pm REASON FOR STUDY: pain in 1st/2nd toes/ fall in bathroom this am TECHNIQUE: AP, lateral 2 radiographic views acquired of the left foot. COMPARISON: None available FINDINGS: BONES/JOINTS: No recent fracture. There is screw fixation of the greattoe metatarsal-phalangeal joint with severe joint space narrowing. There hasbeen previous internal fixation of the distal fibula and medial malleolus with anatomic alignment. SOFT TISSUES: Unremarkable. OTHER: No other significant finding. IMPRESSION: No acute osseous abnormality. 12/18/2017 2:37 PM Jalen Savage M.D. CR: CR Report ID: [id number] Reading Location: [id number] [EOD] us Robert Chan Jasmin DO IMG XR PROCEDURES Final Res ult * CT Facial Bones WO Contrast (12/18/2017 12:00 AM CDT) Anatomical Region Laterality Modality Head and Neck N/A Computed Tomogra phy 12/18/2017 Impressions 12/18/2017 3:26 PM CDT ??No facial fracture. ??Bilateral periorbital and lateral facial soft tissue swelling. ??No acute intraorbital abnormality. 12/18/2017 3:23 PM Wallace Arellano M.D. NH: UT D: ??12/18/2017 3:23 PM T: ??12/18/2017 3:23 PM Report ID: [id number] Reading Location: ??[id number] [EOD] Narrative 12/18/2017 3:26 PM CDT EXAM DESCRIPTION: ??CT Max Facial Bones WO IV Cont COMPLETED DATE/TIME: ??12/18/2017 2:56 pm REASON FOR STUDY: ??Fell last night and hit head, right orbital and frontal pain. TECHNIQUE: ??Noncontrast computed tomography images through the paranasal sinuses. ??Reconstructed MPR images reviewed. ??All images stored on PACS. Automated exposure control was used as a dose optimization technique for this examination. COMPARISON: ??None FINDINGS: BONES: No fracture or bone lesion. SOFT TISSUES: Lateral facial soft tissue swelling without focal lesion. SINUSES: Trace layering fluid in the maxillary sinuses. ??Other paranasal sinuses are clear. NASAL CAVITY: Midline nasal septum. ORBITS: Bilateral periorbital soft tissue swelling. ??No evidence of intraorbital injury or acute finding. TMJs: Unremarkable. MASTOIDS: Well-aerated. ??IACs symmetric, grossly normal. BRAIN: Limited view. No acute findings. OTHER: No other significant finding. Procedure Note Provider, MD Lucille - 12/10/2020 EXAM DESCRIPTION: CT Max Facial Bones WO IV Cont COMPLETED DATE/TIME: 12/18/2017 2:56 pm REASON FOR STUDY: Fell last night and hit head, right orbital and frontal pain. TECHNIQUE: Noncontrast computed tomography images through the paranasal sinuses. Reconstructed MPR images reviewed. All images stored on PACS. Automated exposure control was used as a dose optimization technique forthis examination. COMPARISON: None FINDINGS: BONES: No fracture or bone lesion. SOFT TISSUES: Lateral facial soft tissue swelling without focal lesion. SINUSES: Trace layering fluid in the maxillary sinuses. Other paranasal sinuses are clear. NASAL CAVITY: Midline nasal septum. ORBITS: Bilateral periorbital soft tissue swelling. No evidence of intraorbital injury or acute finding. TMJs: Unremarkable. MASTOIDS: Well-aerated. IACs symmetric, grossly normal. BRAIN: Limited view. No acute findings. OTHER: No other significant finding. IMPRESSION: No facial fracture. Bilateral periorbital and lateral facial soft tissue swelling. No acute intraorbital abnormality. 12/18/2017 3:23 PM Wallace Arellano M.D. NH: RONNI Report ID: [id number] Reading Location: [place] [id number] [EOD] Robert Castellanos DO IMG CT PROCEDURES Final Res ult * CT Chest WO Contrast (12/18/2017 12:00 AM CDT) Anatomical Region Laterality Modality Body N/A Computed Tomogra phy 12/18/2017 Impressions 12/18/2017 3:49 PM CDT ??Mild peripheral right middle lobe pulmonary opacity as described. Negative for suspicious masses, consolidating infiltrate, pleural effusion, or pneumothorax. Normal heart size with coronary artery calcification. 12/18/2017 3:46 PM Ok Love M.D. KK: KK D: ??12/18/2017 3:46 PM T: ??12/18/2017 3:46 PM Report ID: [id number] Reading Location: ??[id number] [EOD] Narrative 12/18/2017 3:49 PM CDT EXAM DESCRIPTION: ??CT Chest WO IV Contrast COMPLETED DATE/TIME: ??12/18/2017 2:56 pm REASON FOR STUDY: ??fall, multiple trauma, back pain, poor historian TECHNIQUE: ??CT scan of the chest performed without intravenous contrast using helical scanning technique. Reconstructed coronal and sagittal MPR images reviewed. ??All images stored on PACS. ??The sensitivity for detection of solid visceral lesions is diminished without the use of intravenous contrast. ?? Automated exposure control was used as a dose optimization technique for this examination. COMPARISON: ??No similar comparison. ??Comparison to CT of the abdomen performed same date and prior CT of the abdomen partially including the lung bases performed 11/16/2017. FINDINGS: LUNGS: Mild peripheral ground-glass type pulmonary attenuation right middle lobe most compatible with reactive small airway disease and/or atelectasis. ?? Subtle pulmonary contusion difficult to absolutely exclude. ??Negative for suspicious pulmonary masses or consolidating infiltrate. ??Central airways are patent. PLEURA: No effusion. No pneumothorax. MEDIASTINUM/CHRISTOS: No identified masses or abnormal nodes. HEART: Normal heart size without pericardial effusion. ??Coronary artery calcification. ??Mitral valve calcification. VASCULATURE: Atherosclerotic changes of the thoracic aorta without aneurysm formation. AXILLA: No adenopathy. CHEST WALL: No masses. ??No subcutaneous air. HARDWARE/LINES/TUBES: None. UPPER ABDOMEN: Best demonstrated on selective CT of the abdomen performed same date. MUSCULOSKELETAL: No significant abnormality. OTHER: No other significant abnormality. Procedure Note Provider, MD Lucille - 12/10/2020 EXAM DESCRIPTION: CT Chest WO IV Contrast COMPLETED DATE/TIME: 12/18/2017 2:56 pm REASON FOR STUDY: fall, multiple trauma, back pain, poor historian TECHNIQUE: CT scan of the chest performed without intravenous contrastusing helical scanning technique. Reconstructed coronal and sagittal MPR images reviewed. All images stored on PACS. The sensitivity for detection ofsolid visceral lesions is diminished without the use of intravenous contrast. Automated exposure control was used as a dose optimization technique forthis examination. COMPARISON: No similar comparison. Comparison to CT of the abdomenperformed same date and prior CT of the abdomen partially including the lung bases performed 11/16/2017. FINDINGS: LUNGS: Mild peripheral ground-glass type pulmonary attenuation rightmiddle lobe most compatible with reactive small airway disease and/oratelectasis. Subtle pulmonary contusion difficult to absolutely exclude. Negative for suspicious pulmonary masses or consolidating infiltrate. Central airwaysare patent. PLEURA: No effusion. No pneumothorax. MEDIASTINUM/CHRISTOS: No identified masses or abnormal nodes. HEART: Normal heart size without pericardial effusion. Coronary artery calcification. Mitral valve calcification. VASCULATURE: Atherosclerotic changes of the thoracic aorta withoutaneurysm formation. AXILLA: No adenopathy. CHEST WALL: No masses. No subcutaneous air. HARDWARE/LINES/TUBES: None. UPPER ABDOMEN: Best demonstrated on selective CT of the abdomen performedsame date. MUSCULOSKELETAL: No significant abnormality. OTHER: No other significant abnormality. IMPRESSION: Mild peripheral right middle lobe pulmonary opacity asdescribed. Negative for suspicious masses, consolidating infiltrate, pleuraleffusion, or pneumothorax. Normal heart size with coronary artery calcification. 12/18/2017 3:46 PM Ok Love M.D. KK: KK Report ID: [id number] Reading Location: [place] [address] [EOD] Robert Castellanos DO IM CT PROCEDURES Final Res ult documented in this encounter Visit Diagnoses Diagnosis Hypo-osmolality and hyponatremia Traumatic ischemia of muscle (HCC) Syncope and collapse Bipolar disorder (HCC) Bipolar disorder, unspecified Essential (primary) hypertension Unspecified essential hypertension Uncomplicated asthma Fall from toilet with subsequent striking against object Insomnia Insomnia, unspecified Venous insufficiency (chronic) (peripheral) Unspecified venous (peripheral) insufficiency Bathroom of non-institutional residence single-family house as the place of occurrence of the external cause Primary osteoarthritis of left shoulder Primary osteoarthritis of right shoulder Allergy status to other drugs, medicaments and biological substances status Latex allergy status Allergy status to sulfonamides Allergy status to other anti-infective agents status documented in this encounter
--- OUTSIDE RECORDS SUMMARY | 2024-08-13 05:04 | XMS_ITS | Encounter Summary ---
Author Organization [facility] Healthcare Address [address] [place] [address] Care Team Providers Care Threading Machine Setter Name Role Phone Unavailable Primary Care Provider Unavailabl e Encounter Details Date Type Department Care Team (Latest Contact Info) Description 05/08/2016 10:36 AM CDT Hospital Encounter [facility] OP Pepe Copeland MD [address] [address] Closed displaced bimalleolar fracture of left lower leg with routine healing; Other specified postprocedural states Social History Tobacco Use Types Packs/Day Years [...] Priority Date/Time Associated Diagnosis Comments XR ANKLE LEFT 3 OR MORE VIEWS Routine 05/08/2016 10:37 AM CDT documented in this encounter Results * XR Ankle Left 3 or More Views (05/08/2016 10:37 AM CDT) Anatomical Region Laterality Modality Lower Extremities, Ankle Left Radiogr aphic Imaging 05/08/2016 10:3 7 AM CDT Impressions 05/08/2016 11:07 AM CDT Further healing with intact fixation of bimalleolar left ankle fracture. THIS IS AN ELECTRONICALLY VERIFIED REPORT 05/08/2016 11:05 AM: ??Pepe Copeland M.D. ?? Pepe Copeland M.D. SH:delores 11:05 AM 11:05 AM [EOD] Narrative 05/08/2016 11:07 AM CDT EXAMINATION: ??AP, lateral and mortise views left ankle REASON FOR EXAM: ??Fracture follow-up FINDINGS: ??3 views of the left ankle are obtained and reviewed. ??These images reveal no change in position or alignment of the previously identified, internally fixed fractures of the medial malleolus at the left ankle. ??There is some interval healing seen at both the medial malleolar and lateral malleolar fracture site. ??Hardware is intact without change. ??There are no acute fracture seen. ??In comparison to the previous x-rays and skin vishal have been removed. Procedure Note Provider, MD Lucille - 12/10/2020 EXAMINATION: AP, lateral and mortise views left ankle REASON FOR EXAM: Fracture follow-up FINDINGS: 3 views of the left ankle are obtained and reviewed. Theseimages reveal no change in position or alignment of the previously identified, internally fixed fractures of the medial malleolus at the left ankle.There is some interval healing seen at both the medial malleolar and lateral malleolar fracture site. Hardware is intact without change. There are no acute fracture seen. In comparison to the previous x-rays and skinstaples have been removed. IMPRESSION: Further healing with intact fixation of bimalleolar left ankle fracture. THIS IS AN ELECTRONICALLY VERIFIED REPORT 05/08/2016 11:05 AM: Pepe Copeland M.D. Peep Copeland M.D. SH:sh 11:05 AM 11:05 AM [EOD] us Pepe Copeland MD IMG XR PROCEDURES Final Resu lt documented in this encounter Visit Diagnoses Diagnosis Closed displaced bimalleolar fracture of left lower leg with routine healing Other specified postprocedural states documented in this encounter
--- OUTSIDE RECORDS SUMMARY | 2024-08-13 05:04 | XMS_ITS | Encounter Summary ---
Author Organization [facility] Healthcare Address [address] [place] [address] Care Team Providers Care Program Project Manager Name Role Phone Unavailable Primary Care Provider Unavailabl e Encounter Details Date Type Department Care Team (Latest Contact Info) Description 05/05/2013 1:15 PM CDT Hospital Encounter [facility] OP Ariela Garcia MD [address] [email or web address] [address] [place] [address] Abdominal pain; Undiagnosed cardiac murmurs Social History Tobacco Use Types Packs/Day Years [...] Procedure Name Priority Date/Time Associated Diagnosis Comments TRANSTHORACIC ECHO (TTE) COMPLETE W DOPPLER/CF Routine 05/05/2013 2:30 PM CDT US RUQ Routine 05/05/2013 1:21 PM CDT CARDIOLOGY REPORT 05/05/2013 12: 00 AM CDT documented in this encounter Results * Transthoracic Echo Complete W Doppler/CF (05/05/2013 2:30 PM CDT) Anatomical Region Laterality Modality Ultrasound 05/05/2013 2:30 PM CDT Narrative 05/06/2013 2:36 PM CDT Results viewable in EMR, Cardiovasular [EOD] Procedure Note Provider, MD Lucille - 12/10/2020 Results viewable in EMR, Cardiovasular [EOD] us Feng Weaver MD CV ECHO PROCEDURES Ellyn l Result * US RUQ (05/05/2013 1:21 PM CDT) Anatomical Region Laterality Modality Abdomen N/A Ultrasound 05/05/2013 1:21 PM CDT Impressions 05/06/2013 8:56 AM CDT Hepatomegaly with hepatic steatosis. THIS IS AN ELECTRONICALLY VERIFIED REPORT 05/06/2013 8:51 AM: ??Nabeel Garcia M.D. Nabeel Garcia M.D. JA:tata 03:36 PM 04:10 PM BM [EOD] Narrative 05/06/2013 8:56 AM CDT EXAMINATION: ??RIGHT UPPER QUADRANT ULTRASOUND HISTORY: Right upper quadrant pain TECHNIQUE: Ultrasound of the gallbladder was performed. COMPARISON: Ultrasound dated October 03, 2009 MEASUREMENTS: Liver length: ??20.8 cm. Common duct diameter: 0.3 cm. Right kidney size: ??0.8 x 5.8 cm GALLBLADDER: The gallbladder is unremarkable, without cholelithiasis, wall thickening or pericholecystic fluid. No sonographic Cabrera's sign was elicited. There is no extrahepatic biliary ductal dilatation. LIVER: The liver is increased in size and echogenicity. The echotexture is smooth. There is no intrahepatic mass or biliary ductal dilatation. There is hepatopetal flow in the main portal vein. PANCREAS: Suboptimal visualization. RIGHT KIDNEY: Survey sagittal images of the right kidney show no hydronephrosis. Procedure Note Provider, Lucille, - 12/10/2020 EXAMINATION: RIGHT UPPER QUADRANT ULTRASOUND HISTORY: Right upper quadrant pain TECHNIQUE: Ultrasound of the gallbladder was performed. COMPARISON: Ultrasound dated October 03, 2009 MEASUREMENTS: Liver length: 20.8 cm. Common duct diameter: 0.3 cm. Right kidney size: 0.8 x 5.8 cm GALLBLADDER: The gallbladder is unremarkable, without cholelithiasis, wall thickening or pericholecystic fluid. No sonographic Cabrera's sign was elicited. There is no extrahepatic biliary ductal dilatation. LIVER: The liver is increased in size and echogenicity. The echotexture is smooth. There is no intrahepatic mass or biliary ductal dilatation. Thereis hepatopetal flow in the main portal vein. PANCREAS: Suboptimal visualization. RIGHT KIDNEY: Survey sagittal images of the right kidney show no hydronephrosis. IMPRESSION: Hepatomegaly with hepatic steatosis. THIS IS AN ELECTRONICALLY VERIFIED REPORT 05/06/2013 8:51 AM: Nabeel Garcia M.D. Nabeel Garcia M.D. JA:tata 03:36 PM 04:[address] [facility] [EOD] Ariela Garcia MD IMG US PROCEDURES Final R esult * CARDIOLOGY REPORT (05/05/2013 12:00 AM CDT) Anatomical Region Laterality Modality Other Narrative 05/05/2013 12:00 AM CDT Ordered by an unspecified provider. Historical Provider [facility] EVAN OZUNA Final Result documented in this encounter Visit Diagnoses Diagnosis Abdominal pain Abdominal pain, unspecified site Undiagnosed cardiac murmurs documented in this encounter
--- OUTSIDE RECORDS SUMMARY | 2024-08-13 05:04 | XMS_ITS | Encounter Summary ---
Author Organization [facility] Healthcare Address [address] [place] [address] Care Team Providers Care Science Technicians Name Role Phone Unavailable Primary Care Provider Unavailabl e Encounter Details Date Type Department Care Team (Late st Contact Info) Description 12/12/2012 2:26 PM CDT Hospital Encounter [facility] OP Feng Weaver MD [address] [place] [address] Cough Social History Tobacco Use Types Packs/Day Years [...] Comments XR CHEST PA LATERAL 2 VIEWS Routine 12/12/2012 2:31 PM CDT documented in this encounter Results * XR Chest Pa Lateral 2 Views (12/12/2012 2:31 PM CDT) Anatomical Region Laterality Modality Body, Chest N/A Radiographic Meera ging 12/12/2012 2:31 PM CDT Impressions 12/12/2012 2:56 PM CDT ?? 1. ??No acute findings. ??No acute infiltrate. THIS IS AN ELECTRONICALLY VERIFIED REPORT 12/12/2012 2:50 PM: ??Adithya Simental M.D. Adithya Simental M.D. MJ:catalina 02:50 PM 02:50 PM [EOD] Narrative 12/12/2012 2:56 PM CDT EXAMINATION: ??PA and lateral chest HISTORY: ??Cough COMPARISON: ??01/21/2009 FINDINGS: ??Senescent change of the aorta. ??Pulmonary vasculature is normal. ?? No focal infiltrate or effusion. Procedure Note Provider, MD Lucille - 12/10/2020 EXAMINATION: PA and lateral chest HISTORY: Cough COMPARISON: 01/21/2009 FINDINGS: Senescent change of the aorta. Pulmonary vasculature isnormal. No focal infiltrate or effusion. IMPRESSION: 1. No acute findings. No acute infiltrate. THIS IS AN ELECTRONICALLY VERIFIED REPORT 12/12/2012 2:50 PM: Adithya Simental M.D. Adithya Simental M.D. MJ:catalina 02:50 PM 02:50 PM [EOD] Feng Weaver MD IMG XR PROCEDURES Final Result documented in this encounter Visit Diagnoses Diagnosis Cough documented in this encounter
--- OUTSIDE RECORDS SUMMARY | 2024-08-13 05:04 | XMS_ITS | Encounter Summary ---
Author Organization [facility] Facility Care Team Providers Care Bevel Gear Generator Operator Name Role Phone Hernando Velasquez MD Primary Care Provider [phone] Jose Manuel Gruber MD Unavailable [phone] Bernardo Edwards MD Primary Care Provider [phone] Hernando Velasuqez MD Primary Care Provider [phone] Bernardo Edwards MD Primary Care Provider [phone] Bernardo Edwards MD Primary Care Provider [phone] Hernando Velasquez MD Primary Care Provider [phone] Encounter Details Date Type Department Care Team (Latest Contact Info) Description 07/22/2016 Orders Only [facility] CLINCON[facility] ProviderLucille MD [address] [place] [address] Social History Tobacco Use Types Packs/Day Years [...] Priority Date/Time Associated Diagnosis Comments SCAN - LABS 07/23/2016 12:00 AM SAP ARCHITECT documented in this encounter Results * SCAN - LABS (07/23/2016 12:00 AM SAP ARCHITECT) Narrative 07/23/2016 12:00 AM SAP ARCHITECT Ordered by an unspecified provider. us Historical Provider Final Res ult documented in this encounter Visit Diagnoses Not on filedocumented in this encounter Additional Health Concerns Infection Onset Date Last Indicated Resolved Time COVID19 Comment:Patient 20 days out and asymptomatic. 07/11/2020 Carly Brionesch 06/21/2020 06/21/2020 07/11/2020 4:[address] COVID: Recovered 07/11/2020 07/11/2020 11/08/2020 3:05 AM CDT documented as of this encounter Care Teams Bevel Gear Generator Operator Relationship Specialty Start Date End Date Hernando Velasquez MD [address] [place] [address] PCP - General 12/23/18 06/13/19 Bernardo Edwards MD [address] [place] [address] PCP - General 07/05/20 07/06/20 Hernando Velasquez MD [address] [place] [address] PCP - General 07/07/20 07/07/20 Bernardo Edwards MD [address] [place] [address] PCP - General 07/08/20 01/06/22 Bernardo Edwards MD [address] [place] [address] PCP - General 06/14/19 07/04/20 Hernando Velasquez MD [address] [place] [address] PCP - General Internal Medicine 01/07/22 Jose Manuel Gruber MD [address] [place] [address] Fellow Orthopedic Surgery 07/06/19 documented as of this encounter
--- OUTSIDE RECORDS SUMMARY | 2024-08-13 05:04 | XMS_ITS | Encounter Summary ---
Author Organization [facility] Healthcare Address [address] [place] [address] Care Team Providers Care Environmental Analyst Name Role Phone Unavailable Primary Care Provider Unavailabl e Encounter Details Date Type Department Care Team (Latest Contact Info) Description 06/17/2016 10:32 AM ELEVATED MOTORMAN Hospital Encounter [facility] OP Pepe Copeland MD [address] [address] Closed displaced bimalleolar fracture of left lower [...] ANKLE LEFT 3 OR MORE VIEWS Routine 06/17/2016 10:34 AM ELEVATED MOTORMAN documented in this encounter Results * XR Ankle Left 3 or More Views (06/17/2016 10:34 AM ELEVATED MOTORMAN) Anatomical Region Laterality Modality Lower Extremities, Ankle Left Radiogr aphic Imaging 06/17/2016 10:3 4 AM ELEVATED MOTORMAN Impressions 06/17/2016 11:34 AM ELEVATED MOTORMAN Intact fixation of left ankle fracture with presumed healing. THIS IS AN ELECTRONICALLY VERIFIED REPORT 06/17/2016 11:30 AM: ??Pepe Copeland M.D. ?? Pepe Copeland M.D. SH: 11:30 AM 11:30 AM [EOD] Narrative 06/17/2016 11:34 AM ELEVATED MOTORMAN EXAMINATION: ??AP, lateral and mortise views left ankle REASON FOR EXAM: ??Fracture follow-up FINDINGS: ??3 views of the left ankle were reviewed and compared with previous images. ??Decrease identified internal fixation of the bimalleolar fracture remains intact with no change in position or alignment of the fracture fragments. ??There is no discrete fracture fragment noted. ??The ankle mortise remains anatomically position and there are no acute findings. Procedure Note Provider, MD Lucille - 12/10/2020 EXAMINATION: AP, lateral and mortise views left ankle REASON FOR EXAM: Fracture follow-up FINDINGS: 3 views of the left ankle were reviewed and compared withprevious images. Decrease identified internal fixation of the bimalleolar fracture remains intact with no change in position or alignment of the fracture fragments. There is no discrete fracture fragment noted. The anklemortise remains anatomically position and there are no acute findings. IMPRESSION: Intact fixation of left ankle fracture with presumed healing. THIS IS AN ELECTRONICALLY VERIFIED REPORT 06/17/2016 11:30 AM: Pepe Copeland M.D. Pepe Copeland M.D. SH:sh 11:30 AM 11:30 AM [EOD] us Pepe Copeland MD IMG XR PROCEDURES Final Resu lt documented in this encounter Visit Diagnoses Diagnosis Closed displaced bimalleolar fracture of left lower leg with routine healing Other specified postprocedural states documented in this encounter
--- OUTSIDE RECORDS SUMMARY | 2024-08-13 05:04 | XMS_ITS | Encounter Summary ---
Author Organization [facility] Healthcare Address [address] [place] [address] Care Team Providers Care Direct Service Provider Name Role Phone Unavailable Primary Care Provider Unavailabl e Encounter Details Date Type Department Care Team (Late st Contact Info) Description 02/02/2014 9:53 AM CDT Hospital Encounter [facility] OP Ariela Garcia MD [address] [facility] [address] [place] [address] Esophageal reflux Social History Tobacco Use Types Packs/Day Years [...] Name Priority Date/Time Associated Diagnosis Comments NM GASTRIC EMPTYING STUDY Routine 02/02/2014 12:00 AM CDT documented in this encounter Results * NM Gastric Emptying Study (02/02/2014 12:00 AM CDT) Anatomical Region Laterality Modality Body N/A Nuclear Medicine 02/02/2014 Impressions 02/02/2014 3:25 PM CDT ??Abnormal delayed gastric emptying as described above, abnormal only at 4 hours. THIS IS AN ELECTRONICALLY VERIFIED REPORT 02/02/2014 3:21 PM: ??Ignacio Meyers M.D. Ignacio Meyers M.D. CH: 03:21 PM 03:21 PM BM [EOD] Narrative 02/02/2014 3:25 PM CDT EXAMINATION: GASTRIC EMPTYING HISTORY: ??Gastroesophageal reflux disease. TECHNIQUE: ??The patient ingested a meal which consisted of 1 mCi of technetium-99m sulfur colloid cooked with eggs via standard departmental protocol. Anterior and posterior static images of the abdomen were obtained at 0, 60, 120, 180, and 240 minutes post ingestion. The data were processed on the computer and the half-emptying time was calculated using the geometric mean. COMPARISON: ??None. FINDINGS: ??The percentage of the radiolabeled contents remaining in the stomach were 57% at 1 hour, 27% at 2 hours, 19% at 3 hours, and and 12% at 4 hours (normal less than 90% at 1 hour, 60% at 2 hours, 30% at 3 hours, and 10% at 4 hours). T1/2 empyting time was 71 minutes. Procedure Note Provider, MD Lucille - 12/10/2020 EXAMINATION: GASTRIC EMPTYING HISTORY: Gastroesophageal reflux disease. TECHNIQUE: The patient ingested a meal which consisted of 1 mCi of technetium-99m sulfur colloid cooked with eggs via standard departmental protocol. Anterior and posterior static images of the abdomen were obtained at 0,60, 120, 180, and 240 minutes post ingestion. The data were processed on the computer and the half-emptying time was calculated using the geometricmean. COMPARISON: None. FINDINGS: The percentage of the radiolabeled contents remaining in the stomach were 57% at 1 hour, 27% at 2 hours, 19% at 3 hours, and and 12% at4 hours (normal less than 90% at 1 hour, 60% at 2 hours, 30% at 3 hours, and10% at 4 hours). T1/2 empyting time was 71 minutes. IMPRESSION: Abnormal delayed gastric emptying as described above,abnormal only at 4 hours. THIS IS AN ELECTRONICALLY VERIFIED REPORT 02/02/2014 3:21 PM: Ignacio Meyers M.D. Ignacio Meyers M.D. CH:ale 03:21 PM 03:21 PM BM [EOD] Ariela Garcia MD IMG NM PROCEDURES Final R esult documented in this encounter Visit Diagnoses Diagnosis Esophageal reflux documented in this encounter
--- OUTSIDE RECORDS SUMMARY | 2024-08-13 05:04 | XMS_ITS | Encounter Summary ---
Author Organization [facility] Facility Care Team Providers Care Er Medical Technician Name Role Phone Hernando Velasquez MD Primary Care Provider [phone] Jose Manuel Gruber MD Unavailable [phone] Bernardo Edwards MD Primary Care Provider [phone] Hernando Velasquez MD Primary Care Provider [phone] Bernardo Edwards MD Primary Care Provider [phone] Bernardo Edwards MD Primary Care Provider [phone] Hernando Velasquez MD Primary Care Provider [phone] Encounter Details Date Type Department Care Team (Latest Contact Info) Description 07/12/2016 Orders Only [facility] CLINCONV ProviderLucille MD [address] [place] [address] Social History Tobacco Use Types Packs/Day [...] Comments SCAN - LABS 07/23/2016 12:00 AM CAKE STRIPPER documented in this encounter Results * SCAN - LABS (07/23/2016 12:00 AM CAKE STRIPPER) Narrative 07/23/2016 12:00 AM CAKE STRIPPER Ordered by an unspecified provider. us Historical [...] documented as of this encounter Care Teams Er Medical Technician Relationship Specialty Start Date End Date Hernando Velasquez MD [address] [place] [address] PCP - General 12/23/18 06/13/19 Bernardo Edwards MD [address] [place] [address] PCP - General 07/05/20 07/06/20 Hernadno Velasquez MD [address] [place] [address] PCP - General 07/07/20 07/07/20 Bernardo Edwards MD [address] [place] [address] PCP - General 07/08/20 01/06/22 Bernardo Edwards MD [address] [place] [address] PCP - General 06/14/19 07/04/20 Hernando Velasquez MD [address] [place] [address] PCP - General Internal Medicine 01/07/22 Jose Manuel Gruber MD [address] [place] [address] Fellow Orthopedic Surgery 07/06/19 documented as of this encounter
[2024-08-13 05:16] LABS: Hematocrit 36.9 % (37.0-47.0); Hemoglobin 12.6 g/dL (12.0-15.0); Mean Corpuscular HGB Conc 34.1 g/dl (32-36); Mean Corpuscular Hemoglobin 30.5 pg (26-34); Mean Corpuscular Volume 89.3 fl (80-100); Mean Platelet Volume 9.8 fl (7.4-10.4); Platelet Count Result 342 k/mm3 (150-375); Red Blood Count 4.13 M/mm3 (4.2-5.4); Red Cell Distribution Width 12.3 % (11.5-14.5); White Blood Count 11.7 K/mm3 (4.5-10.0)
[2024-08-13 05:29] LABS: Alanine Aminotransferase 45 U/L (6-35); Albumin Level 3.3 g/dL (3.5-5.1); Alkaline Phosphatase 99 U/L (38-126); Anion Gap 4 mmol/L (4-12); Aspartate Amino Transferase 38 U/L (14-36); Bilirubin,Total 0.4 mg/dL (0.2-1.3); Blood Urea Nitrogen 8 mg/dL (7-17); Calcium 8.6 mg/dL (8.4-10.2); Carbon Dioxide 30 mmol/L (22-30); Chloride 91 mmol/L (98-107); Estimated Glomerular Filt Rate > 60; Glucose 101 mg/dL (65-110); Sodium 125 mmol/L (137-145)
[2024-08-13] MEDS: ONDANSETRON HCL ODT 4 MG TABLET PO ×3 (05:46→21:27)
[2024-08-13] MEDS: IPRATROPIUM BR 0.02% INH SOLN 0.5 MG/2.5 ML VIAL INHALATION ×3 (08:06→20:11)
[2024-08-13] MEDS: LEVALBUTEROL NEB 1.25 MG/3 ML INHALATION ×3 (08:06→20:11)
[2024-08-13] MEDS: FLUTICASONE/SALMETEROL 115-21 MCG INHALER 1 PUFF 2 PUFF INHALATION ×2 (08:06→20:11)
--- NOTE | 2024-08-13 08:13 | P.PNIM_ITS ---
Progress Note: A&P Assessment and Plan (1) Pneumonia: Code(s): J18.9 - Pneumonia, unspecified organism Status: Acute (2) Altered mental status: Code(s): R41.82 - Altered mental status, unspecified Status: Acute (3) Hypertension: Code(s): I10 - Essential (primary) hypertension Status: Acute (4) Chronic respiratory failure with hypoxia, on home oxygen therapy: Code(s): J96.11 - Chronic respiratory failure with hypoxia; Z99.81 - Dependence on supplemental oxygen Status: Acute (5) Chronic hyponatremia: Code(s): E87.1 - Hypo-osmolality and hyponatremia Status: Acute (6) Bacteriuria with pyuria: Code(s): R82.71 - Bacteriuria; R82.81 - Pyuria Status: Acute (7) Polypharmacy: Code(s): Z79.899 - Other fci (current) drug therapy Status: Acute Plan The patient presented to the emergency department for evaluation of altered mental status as detailed in HPI. Labs, imaging, EKG, and all reports were personally reviewed. The patient remains confused, likely delirium related to underlying infection with likely some component of cognitive deficit as she is on memantine. No gross focal deficits on exam though will check brain CT. Polypharmacy could be playing a factor as well as underlying infection. Chest x- ray and CT of the abdomen and pelvis showed left-sided pneumonia for which she has been started on azithromycin and ceftriaxone. Left-sided pneumonia could be causing referred pain into the left side of the abdomen as no acute intra- abdominal or pelvic process was identified. Chronic hyponatremia stable on review of previous labs. She is not having urinary symptoms but UA was positive for bacteria and 6 to 11 WBC per high-power field; urine cultures pending. Blood pressures were reviewed and they are stable. Her home medications will be reviewed and resumed as appropriate. 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 Subjective Date/time seen: 08/13/24 08:13 Interval history: Continue to feel better. Discharge tomorrow to [place] Review of Systems Review of Systems: 12 systems were reviewed and are negativ e except for as per HPI however limited due to her confusion. Exam Narrative: General: Ill-appearing female in the semi-Siegel position in bed. Weight: 94.3 kg. BMI: 42.0. HEENT: PERRL, EOMI. Sclera anicteric. Dry mucous membranes. Neck: Supple. No midline vertebral tenderness. Respiratory: Respirations are nonlabored. She is currently on 4.5 L nasal cannula. Lung sounds are diminished at the left base with scattered rales. Cardiovascular: Tachycardic with normal S1-S2. Gastrointestinal: Abdomen is soft, nontender, nondistended with positive bowel sounds. Skin: Warm and dry. No rash or lesions on limited exam. Normal capillary refill. Extremities warm and perfused. Extremities: No cyanosis, clubbing, or right lower extremity edema. Status post left [id number] amputation. Neurological: Alert to name and place. She cannot provide me the current year, her date of , and is somewhat confused regarding situation. Cranial nerves 2-12 are grossly intact. Generally weak without gross focal deficits. Psychiatric: Confused and cooperative. Objective Data Vital Signs Vital Signs: Vital Signs - 24 hr 08/12/24 08:25 08/12/24 08:25 08/12/24 08:34 Temperature Pulse Rate 81 82 Respiratory Rate 20 20 Blood Pressure Pulse Oximetry 94 Oxygen Delivery Room Air Oxygen Flow Rate Fraction of Inspired Oxygen 08/12/24 09:07 08/12/24 09:15 08/12/24 12:00 Temperature Pulse Rate 80 70 Respiratory Rate 12 Blood Pressure 128/63 Pulse Oximetry 95 Oxygen Delivery Room Air Oxygen Flow Rate Fraction of Inspired Oxygen 08/12/24 12:00 08/12/24 13:51 08/12/24 14:02 Temperature Pulse Rate 70 84 85 Respiratory Rate 20 20 Blood Pressure Pulse Oximetry Oxygen Delivery Oxygen Flow Rate Fraction of Inspired Oxygen 08/12/24 15:48 08/12/24 16:00 08/12/24 20:00 Temperature Pulse Rate 85 79 92 Respiratory Rate 16 Blood Pressure 151/60 H Pulse Oximetry 96 Oxygen Delivery Oxygen Flow Rate Fraction of Inspired Oxygen 08/12/24 20:07 08/12/24 20:53 08/12/24 20:53 Temperature 98.4 F Pulse Rate 94 85 Respiratory Rate 18 16 Blood Pressure 185/74 H Pulse Oximetry 95 93 Oxygen Delivery Room Air Oxygen Flow Rate Fraction of Inspired Oxygen 08/12/24 21:00 08/12/24 21:00 08/12/24 21:03 Temperature Pulse Rate 83 80 80 Respiratory Rate 16 16 Blood Pressure Pulse Oximetry 93 Oxygen Delivery Room Air Oxygen Flow Rate Fraction of Inspired Oxygen 28 08/12/24 23:43 08/13/24 00:04 08/13/24 04:00 Temperature 98.2 F Pulse Rate 74 73 78 Respiratory Rate 16 Blood Pressure 146/60 H Pulse Oximetry 98 Oxygen Delivery Oxygen Flow Rate Fraction of Inspired Oxygen 08/13/24 08:08 08/13/24 08:08 Temperature Pulse Rate 88 Respiratory Rate 20 Blood Pressure Pulse Oximetry 97 Oxygen Delivery Nasal Cannula Oxygen Flow Rate 2 Fraction of Inspired Oxygen Intake/Output Intake/Output: Intake & Output 08/10/24 08/11/24 08/12/24 08/13/24 23:59 23:59 23:59 23:59 Intake Total 360 3570 2060 Output Total 3900 2300 2550 Balance -3540 1270 -490 Meds/Results Medications: Active Medications Generic Name Dose Route Start Last Admin Trade Name Freq PRN Reason Stop Dose Admin Acetaminophen 650 mg 08/06/24 10:57 08/10/24 03:25 Acetaminophen 325 Mg Tablet PO 650 mg Q4H PRN Administration Mild Pain (1-3) or Fever Hydrocodone Bitart/Acetaminophen 1 tab 08/06/24 10:57 08/13/24 03:58 Hydrocodone/Acetaminophen (*Crx) 5-325 Mg Tablet PO 1 tab Q4H PRN Administration Pain Rated 4-6 Amlodipine Besylate 10 mg 08/07/24 09:00 08/12/24 09:08 Amlodipine Besylate 10 Mg Tablet PO 10 mg DAILY KELIN Administration Artificial Tears 1 drop 08/07/24 16:43 08/12/24 14:06 Artificial Tears Ophth Soln 15 Ml Bottle EACH EYE 1 drop QID PRN Administration Dry Eye(s) Bisacodyl 10 mg 08/06/24 23:10 Bisacodyl 5 Mg Tablet Ec PO HS PRN Constipation Diclofenac Sodium 1 applic 08/06/24 23:10 Diclofenac Sodium 1% 100 Gm Gel (*Bkc) TOPICAL BID PRN moderate pain (scale score 5-6) Famciclovir 250 mg 08/07/24 09:00 08/12/24 21:04 Famciclovir 250 Mg Tablet PO 250 mg Q12HR KELIN Administration Fluticasone Propionate 2 spray 08/07/24 09:00 08/12/24 09:09 Fluticasone Propionate 0.05% Na Spr 16 Gm Btl (*Bkc) NASAL Not Given DAILY KELIN Furosemide 10 mg 08/07/24 09:00 08/12/24 17:52 Furosemide 10 Mg Tablet PO 10 mg BID KELIN Administration Guaifenesin 1,200 mg 08/07/24 09:00 08/12/24 21:03 Guaifenesin 12 Hr 600 Mg Tabcr PO 1,200 mg Q12HR KELIN Administration Hydralazine HCl 10 mg 08/11/24 14:10 08/12/24 21:04 Hydralazine 10 Mg Tablet PO 10 mg QID KELIN Administration Ipratropium [place] 0.5 mg 08/08/24 14:00 08/13/24 08:06 Ipratropium Br 0.02% Inh Soln 0.5 Mg/2.5 Ml Vial INHALATION 0.5 mg Q6HRT KELIN Administration Isosorbide Mononitrate 30 mg 08/07/24 09:00 08/12/24 09:07 Isosorbide Mononitrate 30 Mg Tab.Er.24h PO 30 mg DAILY KELIN Administration Levalbuterol HCl 1.25 mg 08/08/24 14:00 08/13/24 08:06 Levalbuterol Neb 1.25 Mg/3 Ml INHALATION 1.25 mg Q6HRT KELIN Administration Levofloxacin 750 mg 08/10/24 09:00 08/12/24 09:08 Levofloxacin 750 Mg Tablet PO 08/14/24 09:01 750 mg DAILY KELIN Administration Lidocaine 2 patch 08/07/24 21:00 08/12/24 21:03 Lidocaine 5% Patch TOPICAL 2 patch HS KELIN Administration Lorazepam 0.5 mg 08/11/24 14:03 08/13/24 03:58 Lorazepam (*Crx) 0.5 Mg Tablet PO 0.5 mg Q6H PRN Administration Anxiety Losartan Potassium 100 mg 08/07/24 09:00 08/12/24 09:08 Losartan Potassium 100 Mg Tablet PO 100 mg DAILY KELIN Administration Memantine 5 mg 08/07/24 09:00 08/12/24 21:03 Memantine 5 Mg Tablet PO 5 mg Q12HR KELIN Administration Metoprolol Tartrate 100 mg 08/06/24 23:15 08/12/24 21:03 Metoprolol Tartrate 50 Mg Tab PO 100 mg Q12HR KELIN Administration Miconazole Nitrate 1 applic 08/06/24 23:24 Miconazole Nitrate 2% Cream 30 Gm Tube TOPICAL BID PRN irritation Ondansetron HCl 4 mg 08/08/24 14:00 08/13/24 05:46 Ondansetron Hcl Odt 4 Mg Tablet PO 4 mg Q8HR [facility] Administration Pantoprazole Sodium 40 mg 08/07/24 09:00 08/12/24 09:08 Pantoprazole 40 Mg Tablet PO 40 mg DAILY [facility] Administration Pregabalin 150 mg 08/08/24 21:00 08/12/24 21:03 Pregabalin (*Crx) 75 Mg Capsule PO 150 mg Q12HR [facility] Administration Primidone 200 mg 08/08/24 21:00 08/12/24 21:04 Primidone 50 Mg Tablet PO 200 mg Q12HR [facility] Administration Rivaroxaban 20 mg 08/08/24 17:00 08/12/24 17:52 Rivaroxaban 20 Mg Tablet PO 20 mg DAILY@1700 [facility] Administration Fluticasone/Salmeterol 2 puff 08/07/24 08:00 08/13/24 08:06 Fluticasone/Salmeterol 115-21 Mcg Inhaler 1 Puff INHALATION 2 puff Q12HRT [facility] Administration Sodium Chloride 2 spray 08/06/24 23:10 Saline 0.65% [place] Soln 44 Ml Btl NASAL PRN PRN Congestion Sodium Chloride 1 gm 08/07/24 09:00 08/12/24 17:52 Sodium Chloride 1 Gm Tablet PO 1 gm BID [facility] Administration Spironolactone 25 mg 08/07/24 09:00 08/12/24 09:07 Spironolactone 25 Mg Tablet PO 25 mg DAILY KELIN Administration Vitamin B Complex/Folic Acid 1 cap 08/07/24 09:00 08/12/24 09:08 Vitamin B Cmplx/Vit C/Folic Ac 1 Capsule PO 1 cap QAM [facility] Administration Vitamin D 5,000 units 08/07/24 09:00 08/12/24 09:08 Cholecalciferol 5,000 Units Tablet PO 5,000 units DAILY KELIN Administration Vitamin E 800 unit 08/07/24 09:00 08/12/24 09:08 Vitamin E 400 Unit Capsule PO 800 unit DAILY KELIN Administration Radiology Results: ITS Impressions Chest X-Ray 08/06/24 09:01 IMPRESSION: Patchy infiltrate of left mid and lower lung, primarily involving left lower lobe, likely due to pneumonia Abdomen/Pelvis CT 08/06/24 09:03 IMPRESSION: Prominent patchy consolidation of left lower lobe consistent with pneumonia Mild dependent right lower lobe infiltrate or atelectasis Borderline heart size Pinpoint nonobstructing lower pole left renal calculus Status post hysterectomy Head CT 08/06/24 21:50 Impression: No acute intracranial hemorrhage or suspicious mass effect. Ventricular dilatation and bifrontal atrophy, far advanced for patient of this age but unchanged dating back to 04/23/2024. Labs Labs: Laboratory Results - last 24 hr 08/13/24 04:27 WBC 11.7 H RBC 4.13 L Hgb 12.6 Hct 36.9 L MCV 89.3 MCH 30.5 MCHC 34.1 RDW 12.3 Plt Count 342 MPV 9.8 Sodium 125 L Potassium 4.0 Chloride 91 L Carbon Dioxide 30 Anion Gap 4 BUN 8 Creatinine 0.60 L Estim Creat Clear Calc Not Reportable Estimated GFR > 60 Glucose 101 Calcium 8.6 Total Bilirubin 0.4 AST 38 H ALT 45 H Alkaline Phosphatase 99 Total Protein 7.0 Albumin 3.3 L Quality VTE Prophylaxis VTE prophylaxis: pharmacologic ordered Hospitalist [facility] Advance Care Plan I have confirmed that the patient's Advanced Care Plan is present, code status is documented, or surrogate decision maker is listed in patient medical record.: Yes Medication Reconciliation I have utilized all available resources to obtain, update and review the pa bonitas current medications (includes all prescriptions, OTC, herbals, cannabis, and nutritional supplements).: Yes
[2024-08-13] MEDS: SODIUM CHLORIDE 1 GM TABLET PO ×2 (08:33→16:06)
[2024-08-13] MEDS: guaiFENesin 12 HR 600 MG TABCR 1200 MG PO ×2 (08:34→21:14)
[2024-08-13] MEDS: PRIMIDONE 50 MG TABLET 200 MG PO ×2 (08:35→21:18)
[2024-08-13] MEDS: levoFLOXacin 750 MG TABLET PO (08:35)
[2024-08-13] MEDS: PANTOPRAZOLE 40 MG TABLET PO (08:36)
[2024-08-13] MEDS: ISOSORBIDE MONONITRATE 30 MG TAB.ER.24H PO (08:36)
[2024-08-13] MEDS: METOPROLOL TARTRATE 50 MG TAB 100 MG PO ×2 (08:36→21:15)
[2024-08-13] MEDS: amLODIPine BESYLATE 10 MG TABLET PO (08:36)
[2024-08-13] MEDS: hydrALAZINE 10 MG TABLET PO ×4 (08:36→21:15)
[2024-08-13] MEDS: FAMCICLOVIR 250 MG TABLET PO ×2 (08:36→21:18)
[2024-08-13] MEDS: LOSARTAN POTASSIUM 100 MG TABLET PO (08:37)
[2024-08-13] MEDS: MEMANTINE 5 MG TABLET PO ×2 (08:37→21:15)
[2024-08-13] MEDS: VITAMIN B CMPLX/VIT C/FOLIC AC 1 CAPSULE 1 CAP PO (08:37)
[2024-08-13] MEDS: CHOLECALCIFEROL 5,000 UNITS TABLET 5000 UNITS PO (08:37)
[2024-08-13] MEDS: PREGABALIN (*CRX) 75 MG CAPSULE 150 MG PO ×2 (08:37→21:18)
[2024-08-13] MEDS: SPIRONOLACTONE 25 MG TABLET PO (08:38)
[2024-08-13] MEDS: VITAMIN E 400 UNIT CAPSULE 800 UNIT PO (08:38)
[2024-08-13] MEDS: FLUTICASONE PROPIONATE 0.05% NA SPR 16 GM BTL (*BKC) 2 SPRAY NASAL (08:38)
[2024-08-13] MEDS: FUROSEMIDE 10 MG TABLET PO ×2 (08:38→16:06)
[2024-08-13] MEDS: ARTIFICIAL TEARS OPHTH SOLN 15 ML BOTTLE 1 DROP EACH EYE (09:57)
[2024-08-13] MEDS: RIVAROXABAN 20 MG TABLET PO (16:06)
[2024-08-13] MEDS: LIDOCAINE 5% PATCH 2 PATCH TOPICAL (21:19)
[2024-08-14] VITALS (7 sets, daily range): BP systolic 125–186; BP diastolic 55–70; PULSE 70–85; RESP 14–20; TEMP 36.3–36.6; O2SAT 94–99
[2024-08-14] MEDS: HYDROcodone/acetaminophen (*CRX) 5-325 MG TABLET 1 TAB PO ×3 (03:46→16:22)
[2024-08-14] MEDS: LORazepam (*CRX) 0.5 MG TABLET PO ×3 (03:51→17:23)
--- NOTE | 2024-08-14 04:09 | PC.NURSE ---
Discusses with patient oxygenation baseline. She stated she only wear 2L oxygen at HS baseline while at [facility] which is her home residence. Oxygen is 96% saturation, unlabored breathing, no signs/symptoms of respiratory distress. Will continue to monitor.
[2024-08-14] MEDS: ONDANSETRON HCL ODT 4 MG TABLET PO ×2 (05:32→14:43)
[2024-08-14 06:10] LABS: Hematocrit 38.4 % (37.0-47.0); Hemoglobin 12.8 g/dL (12.0-15.0); Mean Corpuscular HGB Conc 33.3 g/dl (32-36); Mean Corpuscular Hemoglobin 30.4 pg (26-34); Mean Corpuscular Volume 91.2 fl (80-100); Mean Platelet Volume 9.9 fl (7.4-10.4); Platelet Count Result 335 k/mm3 (150-375); Red Blood Count 4.21 M/mm3 (4.2-5.4); Red Cell Distribution Width 12.8 % (11.5-14.5); White Blood Count 12.3 K/mm3 (4.5-10.0)
[2024-08-14 06:25] LABS: Alanine Aminotransferase 39 U/L (6-35); Albumin Level 3.3 g/dL (3.5-5.1); Alkaline Phosphatase 90 U/L (38-126); Anion Gap 7 mmol/L (4-12); Aspartate Amino Transferase 34 U/L (14-36); Bilirubin,Total 0.4 mg/dL (0.2-1.3); Blood Urea Nitrogen 8 mg/dL (7-17); Calcium 8.2 mg/dL (8.4-10.2); Carbon Dioxide 27 mmol/L (22-30); Chloride 93 mmol/L (98-107); Estimated Glomerular Filt Rate > 60; Glucose 100 mg/dL (65-110); Potassium 4.3 mmol/L (3.4-5.0); Sodium 127 mmol/L (137-145)
--- NOTE | 2024-08-14 07:26 | PM.DS ---
DS: Admitting Diagnosis Discharge Date 08/14/2024 Admitting Diagnosis Altered mental status DS: Discharge Diagnosis Discharge Diagnosis (1) Pneumonia: Code(s): J18.9 - Pneumonia, unspecified organism Status: Acute Assessment and Plan: Resolved (2) Altered mental status: Code(s): R41.82 - Altered mental status, unspecified Status: Acute Assessment and Plan: Resolved (3) Hypertension: Code(s): I10 - Essential (primary) hypertension Status: Acute (4) Chronic respiratory failure with hypoxia, on home oxygen therapy: Code(s): J96.11 - Chronic respiratory failure with hypoxia; Z99.81 - Dependence on supplemental oxygen Status: Acute (5) Chronic hyponatremia: Code(s): E87.1 - Hypo-osmolality and hyponatremia Status: Acute (6) Bacteriuria with pyuria: Code(s): R82.71 - Bacteriuria; R82.81 - Pyuria Status: Acute (7) Polypharmacy: Code(s): Z79.899 - Other halfway (current) drug therapy Status: Acute DS: Summary Hospital Course Hospital Course: This is a 73-year-old female with chronic respiratory failure on 4 L home oxygen, asthma, untreated obstructive sleep apnea, hypertension, hyperlipidemia, anemia, depression, anxiety, bipolar disorder, seizure disorder no longer on medications, chronic pain syndrome, and other comorbidities who presented to the emergency department via EMS from [facility] for evaluation of altered mental status. She is able to provide some history however remains confused and some of the following is supplemented via a review of her electronic medical records. She tells me she has not been feeling well since she got the COVID vaccination although she cannot tell me precisely when that occurred. Symptoms include body aches, subjective fever, chills, and poor appetite. She has discomfort in the left side of the abdomen, just below the ribs, which she has a difficult time describing other than that ?it hurts.? She is aware of her confusion, telling me that she is confused by her surrounding and the urine her date of . She denies recent fall, head trauma, sore throat, chest pain, pleuritic pain, shortness of breath, cough, diarrhea, and dysuria. She is unaware of any sick contacts. In the ED: She was afebrile on arrival with stable vital signs. Labs were significant for WBC count of 28.6 with 7% bands, sodium 131, chloride 97, lactic acid 1.1. Urinalysis was positive for 2+ protein, trace ketones, trace leukocyte esterase, 6 to 10 RBC, 11 to 20 WBC, and 1+ bacteria. She tested negative for influenza, RSV, and COVID. Chest x-ray showed patchy infiltrates in the left lung likely pneumonia. CT of the abdomen pelvis showed prominent patchy consolidation of the left lower lobe consistent with pneumonia and pinpoint nonobstructing lower pole left renal calculus. She received azithromycin and ceftriaxone is being admitted in this setting for further treatment and evaluation. Patient was treated for the following condition Metabolic encephalopathy possibly due to pneumonia vs UTI -Resolved -Completed ceftriaxone and azithromycin -Completed 5 day course of Levofloxacin PO -Blood cultures were negative -MRSA negative -encourage oral intake Chronic hyponatremia -Stable and chronic -Sodium 130 -Possible due to SIADH and dehydration -Euvolemia A.fib -TSH normal -CHADVASC 3 -Metoprolol 100 mg PO BID -Xarelto 20 mg po qd -ECHO reviewed. Status at Discharge Cognitive/behavioral status at discharge: Stable Time Spent with Patient Time attestation: Total time spent providing and/or coordinating discharge services:45 minutes Exam Narrative: General: Ill-appearing female in the semi-Siegel position in bed. Weight: 94.3 kg. BMI: 42.0. HEENT: PERRL, EOMI. Sclera anicteric. Dry mucous membranes. Neck: Supple. No midline vertebral tenderness. Respiratory: Respirations are nonlabored. She is currently on 4.5 L nasal cannula. Lung sounds are diminished at the left base with scattered rales. Cardiovascular: Tachycardic with normal S1-S2. Gastrointestinal: Abdomen is soft, nontender, nondistended with positive bowel sounds. Skin: Warm and dry. No rash or lesions on limited exam. Normal capillary refill. Extremities warm and perfused. Extremities: No cyanosis, clubbing, or right lower extremity edema. Status post left [id number] amputation. Neurological: Alert to name and place. She cannot provide me the current year, her date of , and is somewhat confused regarding situation. Cranial nerves 2-12 are grossly intact. Generally weak without gross focal deficits. Psychiatric: Confused and cooperative. DS: Data Data Completed and Pending Labs on day of discharge: Labs from last 24 hours 08/14/24 05:36 WBC 12.3 H RBC 4.21 Hgb 12.8 Hct 38.4 MCV 91.2 MCH 30.4 MCHC 33.3 RDW 12.8 Plt Count 335 MPV 9.9 Sodium 127 L Potassium 4.3 Chloride 93 L Carbon Dioxide 27 Anion Gap 7 BUN 8 Creatinine 0.55 L Estim Creat Clear Calc Not Reportable Estimated GFR > 60 Glucose 100 Calcium 8.2 L Total Bilirubin 0.4 AST 34 ALT 39 H Alkaline Phosphatase 90 Total Protein 6.0 L Albumin 3.3 L Imaging Radiologist's impression: ITS Impressions Chest X-Ray 08/06/24 09:01 IMPRESSION: Patchy infiltrate of left mid and lower lung, primarily involving left lower lobe, likely due to pneumonia Abdomen/Pelvis CT 08/06/24 09:03 IMPRESSION: Prominent patchy consolidation of left lower lobe consistent with pneumonia Mild dependent right lower lobe infiltrate or atelectasis Borderline heart size Pinpoint nonobstructing lower pole left renal calculus Status post hysterectomy Head CT 08/06/24 21:50 Impression: No acute intracranial hemorrhage or suspicious mass effect. Ventricular dilatation and bifrontal atrophy, far advanced for patient of this age but unchanged dating back to 04/23/2024. Discharge Plan Discharge Attending physician on discharge: Shabbir Zayas Consulting providers: Sonali Terrell Discharging Clinician: Shabbir Zayas Anticipated Discharge Date/Time: 08/14/24 09:35 Patient Disposition: SNF Activity: other - see discharge instructions Diet: heart healthy Discharge Instructions: Please print Echocardiogram result to the patient. Check blood pressure 1 to 2 times a day. Record and bring into your doctor for review. Call your doctor if your blood pressure is greater than 180/110 or less than 90/45. Aspiration precautions Take precautions to avoid falls. Contact your doctor or call 911 and come to the Emergency Room if you have any type of trauma, lightheadedness with standing or other worrisome symptoms. Avoid NSAIDs (ibuprofen, naproxen, Aleve). Tylenol is safe to take. Follow-up with your primary care provider in 1-2 weeks. Please call for appointment. Follow-up with Cardiology in 2-4 weeks. Please call for an appointment. Follow up with Neurology in 2-4 weeks. Please call for an appointment. Thank you for using [facility] for your health care needs. Patient Instructions: Antibiotic Form, Rivaroxaban (By mouth) Patient Language: Danish Stand Alone Forms: General Discharge Information Follow-up/Referrals: Danish,Hernando Maldonado MD [Primary Care Provider] - Kevin Payne MD [Physician] - Sonali Terrell MD [Physician] - Discharge Medications: New hydralazine 10 mg Tablet 10 mg PO QID Qty: 30 0RF Artificial Tears([id number]) 1-0.2-0.2 % Drops 1 drp EACH EYE QID PRN (Reason: Dry Eye(S)) Qty: 30 0RF Continued spironolactone 25 mg tablet 25 mg PO DAILY docusate sodium 100 mg Tablet 100 mg PO DAILY PRN (Reason: Constipation) baclofen 10 mg tablet 10 mg PO TID losartan 100 mg tablet 100 mg PO DAILY isosorbide mononitrate 30 mg tablet extended release 24 hr 30 mg PO DAILY lidocaine [Lidoderm] 5 % adhesive patch,medicated 2 patch topical DAILY Patient Comments: left shoulder Rx Instructions: leave on most painful area for up to 12 hrs magnesium hydroxide [Gentle Laxative (mag hydrox)] 400 mg/5 mL suspension 30 ml PO DAILY PRN (Reason: constipation) diclofenac sodium [Voltaren Arthritis Pain] 1 % gel 2 g topical BID PRN (Reason: moderate pain (scale score 5-6)) Patient Comments: right shoulder Rx Instructions: apply to single elbow, wrist or hand; for hand includes palm/fingers/back of hand oxycodone 5 mg tablet 5 mg PO Q4-6H PRN (Reason: Pain) Qty: 7 0RF atorvastatin 10 mg Tablet 10 mg PO HS famciclovir 250 mg Tablet 250 mg PO Q12H cholecalciferol (vitamin D3) 10 mcg (400 unit) Tablet 5,000 unit PO DAILY primidone 50 mg Tablet 200 mg PO BID pantoprazole 40 mg Tablet,Delayed Release (Dr/Ec) 40 mg PO DAILY fluticasone propionate 50 mcg/actuation [place],Suspension 2 spray INTRANASAL DAILY vitamin E 400 unit Capsule 800 unit PO DAILY vitamin B complex Tablet Extended Release 1 tablet PO DAILY Rx Instructions: with biotin and folic acid metoprolol tartrate 100 mg Tablet 100 mg PO BID ondansetron HCl 4 mg tablet 4 mg PO TID amlodipine 10 mg tablet 10 mg PO DAILY nystatin 100,000 unit/gram cream 1 applic TOPICAL BID PRN (Reason: irritation) Rx Instructions: apply BID to affected areas unitl healed PRN bisacodyl [Dulcolax (bisacodyl)] 5 mg Tablet,Delayed Release (Dr/Ec) 10 mg PO HS PRN (Reason: Constipation) polyethylene glycol 3350 [Miralax] 17 gram/dose Powder 17 g PO DAILY PRN (Reason: Constipation) albuterol sulfate 90 mcg/actuation Hfa Aerosol Inhaler 1 inh INHALATION DAILY PRN (Reason: sob/wheezing) sodium chloride 0.65 % Aerosol,[place] 2 spray INTRANASAL PRN PRN (Reason: Congestion) memantine 5 mg tablet 5 mg PO BID budesonide-formoterol 160-4.5 mcg/actuation HFA aerosol inhaler 2 puff INHALATION BID guaifenesin [Mucinex] 1,200 mg Tablet Extended Release 12hr 1,200 mg PO BID sodium chloride 1,000 mg tablet,soluble 1,000 mg PO BID Qty: 60 0RF furosemide [Lasix] 20 mg tablet 10 mg PO BID Qty: 60 0RF lorazepam 0.5 mg tablet 1 mg PO Q6H PRN (Reason: Anxiety) Qty: 10 0RF pregabalin [Lyrica] 150 mg Capsule 150 mg PO BID Qty: 14 0RF Date of admission: 08/06/24 10:57 Primary Care Provider: Danish,Hernando Maldonado Admitting Provider: Bhavik Minaya Attending physician on admission: Bhavik Minaya Condition: Stable
[2024-08-14] MEDS: LEVALBUTEROL NEB 1.25 MG/3 ML INHALATION (07:29)
[2024-08-14] MEDS: IPRATROPIUM BR 0.02% INH SOLN 0.5 MG/2.5 ML VIAL INHALATION (07:29)
[2024-08-14] MEDS: FLUTICASONE/SALMETEROL 115-21 MCG INHALER 1 PUFF 2 PUFF INHALATION (07:37)
[2024-08-14] MEDS: levoFLOXacin 750 MG TABLET PO (09:01)
[2024-08-14] MEDS: CHOLECALCIFEROL 5,000 UNITS TABLET 5000 UNITS PO (09:01)
[2024-08-14] MEDS: SODIUM CHLORIDE 1 GM TABLET PO ×2 (09:01→16:22)
[2024-08-14] MEDS: VITAMIN E 400 UNIT CAPSULE 800 UNIT PO (09:01)
[2024-08-14] MEDS: ISOSORBIDE MONONITRATE 30 MG TAB.ER.24H PO (09:01)
[2024-08-14] MEDS: PREGABALIN (*CRX) 75 MG CAPSULE 150 MG PO (09:01)
[2024-08-14] MEDS: amLODIPine BESYLATE 10 MG TABLET PO (09:01)
[2024-08-14] MEDS: SPIRONOLACTONE 25 MG TABLET PO (09:02)
[2024-08-14] MEDS: VITAMIN B CMPLX/VIT C/FOLIC AC 1 CAPSULE 1 CAP PO (09:02)
[2024-08-14] MEDS: FAMCICLOVIR 250 MG TABLET PO (09:02)
[2024-08-14] MEDS: hydrALAZINE 10 MG TABLET PO ×3 (09:03→16:22)
[2024-08-14] MEDS: PANTOPRAZOLE 40 MG TABLET PO (09:03)
[2024-08-14] MEDS: LOSARTAN POTASSIUM 100 MG TABLET PO (09:03)
[2024-08-14] MEDS: METOPROLOL TARTRATE 50 MG TAB 100 MG PO (09:03)
[2024-08-14] MEDS: guaiFENesin 12 HR 600 MG TABCR 1200 MG PO (09:03)
[2024-08-14] MEDS: MEMANTINE 5 MG TABLET PO (09:03)
[2024-08-14] MEDS: FUROSEMIDE 10 MG TABLET PO ×2 (09:03→16:22)
[2024-08-14] MEDS: FLUTICASONE PROPIONATE 0.05% NA SPR 16 GM BTL (*BKC) 2 SPRAY NASAL (09:04)
[2024-08-14] MEDS: ARTIFICIAL TEARS OPHTH SOLN 15 ML BOTTLE 1 DROP EACH EYE (09:05)
[2024-08-14] MEDS: PRIMIDONE 50 MG TABLET 200 MG PO (09:07)
[2024-08-14] MEDS: RIVAROXABAN 20 MG TABLET PO (16:22)
[2024-08-15 20:44] LABS: Legionella pneumophila Ag Ur NOT DETECTED
--- OUTSIDE RECORDS SUMMARY | 2024-08-17 19:43 | XMS_ITS | Clinical Summary ---
Author Organization [facility] Address [address] [place] [address]. [place] [address] [place] [address] Care Team Providers Care Absorption Plant Operator Name Role Phone Marcia Gaines MD Primary Care Provider [phone] Allergies Active Allergy Reactions Criticality Noted Date [...] tartrate 25 MG tablet 1 Active NYSTATIN 474818 UNIT/GM powder 1 Active ondansetron 8 MG [...] above-knee amput ation of left lower extremity ([facility]) 08/02/2020 Leg skin lesion, left 07/05/2020 Overview (05/06/2021): Added automatically from request for surgery [id number] Infection 07/05/2020 Overview (05/06/2021): Last Assessment & [...] left lower extremity. - PM&R consulted. - Manual Arts Therapy Teacher placed stump software development advisor / [email or web address]. Awaiting delivery of limb protector. - Patient not interested in prosthesis at this time. - PT/OT consults. - Plan for patient to return to her prior SNF when medically stable with ongoing PT/OT. - ID and Ortho following. COVID-19 07/05/2020 Overview (05/06/2021): Last Assessment & Plan: - Patient tested positive for COVID-19 on 06/21/20 at her retirement ([facility] in [place], [place]). - She reports her only symptom [...] Plan: - As elsewhere Chronic respiratory failure ([facility]) Overview (05/06/2021): Last Assessment & Plan: - Per pt 2/2 COPD. No sings of acute exacerbation. 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 Moderate essential hypertension 06/28/2019 Overview (05/06/2021): Last Assessment & Plan: - Follows with cardiology. - Continue home amlodipine, metoprolol, lasix, spironolactone. - Switched olmesartan to losartan as not on formulary. Intractable seizure disorder ([facility]) 1 08/29/2018 Bipolar I disorder with anxious distress (CMS/[facility]) 06/28/2019 Traumatic rhabdomyolysis 11/23/2017 Hyponatremia 11/23/2017 [...] 21 05/09/2021 Insurance MEDICAID AET Care Teams Absorption Plant Operator Relationship Specialty Start Date End Date Marcia Gaines MD PCP - General 08/18/16
--- OUTSIDE RECORDS SUMMARY | 2024-08-17 19:44 | XMS_ITS | Continuity of Care Document ---
Author Organization [facility] [place] Address [address] [place] [address] Phone Care Team Providers Care Project Scientist Name Role Phone Hernando Velasquez MD Unavailable Unavailable Allergies, Adverse Reactions, Alerts Substance [...] TWICE A DAY WITH FOOD - Active SPIRONOLACTONE 25 MG TABLET TAKE 1 TABLET BY MOUTH EVERY DAY - Active BACLOFEN 10 MG TABLET TAKE 1 TABLET BY MOUTH THREE TIMES A DAY - Active AMLODIPINE BESYLATE 10 MG TAB TAKE 1 TABLET BY MOUTH EVERY DAY - Active oxycodone 5 mg tablet take 1 tablet by oral route every 4 - 6 hours as needed 5 MG - Active lorazepam 1 mg tablet take 1 tablet by oral route 4 times every day - Active NYSTATIN 100,000 UNIT/GM CREAM APPLY [...] MOUTH THREE TIMES A DAY - Active Miralax 17 gram oral powder packet take 1 packet by oral route every day mixed with 8 oz. water, juice, soda, coffee or tea as needed - Active Colace 100 mg capsule take 1 capsule by mouth once daily - Active EPINEPHRINE 0.3 MG AUTO-INJECT INJECT [...] mg capsule 1 twice daily - Active Dulcolax (bisacodyl) 5 mg tablet,delayed release take 1 tablet by oral route at bedtime - Active vitamin B complex tablet take 1 tablet by oral route every day 1 tablet - Active magnesium 250 mg tablet 1 tablet daily - Active Mucinex 1,200 mg tablet, extended release 1 tablet twice daily as needed - Active Geneva Nasal 0.65 % spray aerosol 2 sprays each nostril as needed - Active albuterol sulfate HFA 90 mcg/actuation aerosol inhaler inhale 1 puff by inhalation route every 4 - 6 hours as needed 90 MCG - Active CETIRIZINE 10MG TABLETS TAKE 1 TABLET BY MOUTH ONCE DAILY 1 - Active Vitamin D3 400 unit tablet take 1 tablet daily - Active VITAMIN E 400 UNIT CAPS 2 QD-daily - Active Procedures Procedure Date BASIC METABOLIC PANEL(BMP) Pt inelig neg scrn depres IMMUN ADMIN (INC PERCUTANEOUS) SINGLE, F IRST INJ TDAP INTRAMUSCULAR USE OFFICE [id number] SYST BP >= 140 MM HG6 IT DIAST BP 80-89 MM HG ROUTINE VENIPUNCTURE IL CBC, INC PLATELETS AND DIFFERENTIAL COMPREHEN METABOLIC PANEL CMP 4 LIPID PANEL LDL-CHOLESTEROL, DIRECT PRES/ABSN URINE INCON ASSESS Pt inelig neg scrn depres PREVENTATIVE-EST: 65 & OVER SYST BP GE 130 - 139MM HG DIAST BP 80-89 MM HG ROUTINE VENIPUNCTURE IL BASIC METABOLIC PANEL(BMP) Pt inelig neg scrn depres IMMUN ADMIN (INC PERCUTANEOUS) SINGLE, F IRST INJ Flu Vac, quad (RIV4), Preservative And A ntibiotic Free IM OFFICE [id number] SYST BP >= 140 MM HG6 IT DIAST BP < 80 MM HG ROUTINE VENIPUNCTURE IL CBC, INC PLATELETS AND DIFFERENTIAL COMPREHEN METABOLIC PANEL CMP 3 LIPID PANEL Pt inelig neg scrn depres FALL RISK ASSESSMENT DOC'D PRES/ABSN URINE INCON ASSESS PREVENTATIVE-EST: 65 & OVER SYST BP >= 140 MM HG6 IT DIAST BP < 80 MM HG ROUTINE VENIPUNCTURE IL OFFICE [id number] SYST BP >= 140 MM HG6 IT DIAST BP 80-89 MM HG BASIC METABOLIC PANEL(BMP) ROUTINE VENIPUNCTURE BASIC METABOLIC PANEL(BMP) ROUTINE VENIPUNCTURE BASIC METABOLIC PANEL(BMP) ROUTINE VENIPUNCTURE IMMUN ADMIN (INC PERCUTANEOUS) SINGLE, F IRST INJ Flu Vac, quad (RIV4), Preservative And A ntibiotic Free IM OFFICE [id number] BODY MASS INDEX DOCD SYST BP >= 140 MM HG6 IT DIAST BP >= 90 MM HG BASIC METABOLIC PANEL(BMP) ROUTINE VENIPUNCTURE FORM CHARGE SYST BP >= 140 MM HG6 IT DIAST BP 80-89 MM HG OFFICE [id number] BODY MASS INDEX DOCD SYST BP >= 140 MM HG6 IT DIAST BP 80-89 MM HG PREVENTATIVE-EST: 65 & OVER BODY MASS INDEX DOCD SYST BP >= 140 MM HG6 IT DIAST BP 80-89 MM HG CBC, INC PLATELETS AND DIFFERENTIAL COMPREHEN METABOLIC PANEL CMP HEMOGLOBIN A1C HGA1C, GLYCO LIPID PANEL MICROALBUMIN, QN (URINE) CREATININE, (U-R) ROUTINE VENIPUNCTURE OFFICE [id number]-[id number]-[id number] CBC, INC PLATELETS AND DIFFERENTIAL COMPREHEN METABOLIC PANEL CMP 1 HEMOGLOBIN A1C HGA1C, GLYCO ROUTINE VENIPUNCTURE OFFICE [id number] DSCHRG MED/CURRENT MED MERGE OFFICE [id number] BASIC METABOLIC PANEL(BMP) ROUTINE VENIPUNCTURE OFFICE [id number]-[id number] BASIC METABOLIC PANEL(BMP) CREATININE, (U-R) URINALYSIS, DIPSTICK (UA) - Office Lab O ROUTINE VENIPUNCTURE BASIC METABOLIC PANEL(BMP) ROUTINE VENIPUNCTURE Admin influenza virus vac Flu Vac, quad (RIV4), Preservative And A ntibiotic Free IM BASIC METABOLIC PANEL(BMP) ROUTINE VENIPUNCTURE OFFICE [id number] BASIC METABOLIC PANEL(BMP) DRUG TEST (ANY NUMBER OF DRUG CLASSES) A ROUTINE VENIPUNCTURE Advance Directives Directive Yes / No Effective Date File Name No Information Encounters Encounter Description Practice Location Reason(s) For Visit Diagnoses Date Provider Providers Copied on Encounter [facility] [place], [address], [place], [place], [address] , [place] tel: [phone] [facility] No Information 5 English Villagomez. [address] [place], [place], [address], [place]. tel:[phone] Referring Provider: Hernando Velasquez, [address] [place], [address] . tel:[phone] [facility] [place], [address], [place], [place], [address] , [place] tel: [phone] [facility] [place] No Information 0 4 Dejesus Kay. [address] [place], [place], [address], [place]. tel:[phone] [facility] [place], [address], [place], [place], [address] , [place] tel: [phone] [facility] [place] No Information 4 Dejesus Kay. [address] [place], [place], [address], [place]. tel:[phone] [facility] [place], [address], [place], [place], [address] , [place] tel: [phone] [facility] [place] No Information 4 [place] Hernando. [address] [place], [address], [place]. tel:[phone] [facility] [place], [address], [place], [place], [address] , [place] tel: [phone] [facility] [place] No Information 4 [place] Hernando. [address] [place], [address], [place]. tel:[phone] [facility] [place], [address], [place], [place], [address] , [place] tel: [phone] [facility] [place] No Information Mar-0 4 [place] Hernando. [address] [place], [address], [place]. tel:[phone] [facility] [place], [address], [place], [place], [address] , [place] tel:[phone] [facility] [place] No Information 4 [place] Hernando. [address] [place], [place], [address], [place]. tel:[phone] [facility] [place], [address], [place], [place], [address] , [place] tel: [phone] [facility] [place] No Information 0 4 [place] Hernando. [address] [place], [place], [address], [place]. tel:[phone] [facility] [place], [address], [place], [place], [address] , [place] tel: [phone] [facility] [place] No Information 4 Dejesus Kay. [address] [place], [place], [address], [place]. tel:[phone] [facility] [place], [address], [place], [place], [address] , [place] tel:[phone] [facility] [place] No Information 4 [place] Hernando. [address] [place], [address], [place]. tel: [phone] [facility] [place], [address], [place], [place], [address] , [place] tel: [phone] [facility] [place] No Information 4 [place] Hernando. [address] [place], [place], [address], [place]. tel:[phone] [facility] [place], [address], [place], [place], [address] , [place] tel: [phone] [facility] [place] No Information 4 [place] Hernando. [address] [place], [place], [address], [place]. tel:[phone] [facility] [place], [address], [place], [place], [address] , [place] tel: [phone] [facility] [place] No Information 4 Dixon Destiny. [address] [place], [place], [address], [place]. tel:[phone] [facility] [place], [address], [place], [place], [address] , [place] tel: [phone] [facility] [place] No Information 4 [place] Hernando. [address] [place], [address], [place]. tel:[phone] [facility], [address], [place], [place], [address] , [place] tel: [phone] [facility] No Information 4 Ben Price. [address] [facility], [address], [address], [place]. tel:[phone] Referring Provider: Hernando Velasquez, [address] [place], [address] . tel:[phone] OFFICE LAAVM-MZH-MA PANDED [facility], [address], [place], [place], [address] , tel: [phone] [facility] hyponatremmia (chief complaint) Hyponatremia 4 English Villagomez. [address] [place], [place], [address], [place]. tel:[phone] Referring Provider: Hernando Velasquez [address] [place], [address] . tel:[phone] [facility], [address], [place], [place], [address] , [place] tel: [phone] [facility] [place] No Information 4 English Villagomez. [address] [place], [place], [address], [place]. tel:[phone] [facility], [address], [place], [place], [address] , [place] tel: [phone] [facility] [place] No Information 4 English Villagomez. [address] [place], [place], [address], [place]. tel:[phone] [facility], [address], [place], [place], [address] , tel: [phone] [facility] Encounter for general adult medical examination without abnormal findingsEssen tial (primary) hypertensionH yperlipidemia , unspecified Oct- 4 Ben Martinin. [address] [facility], [address] [address], [place], [place], [address], [place]. tel:[phone] Referring Provider: [place], [address] . tel:[phone] PREVENTATIVE -EST: 65 & OVER [facility] [place], [address], [place], [place], [address] , [place] tel: [phone] [facility] PX (chief complaint) Encounter for general adult medical examination without abnormal findingsEssen tial [facility] OPD with asthmaChronic GERDGAD (generalized anxiety disorder)Cere bral atrophyHistor y of above-knee amputation of left lower extremityEnco unter for screening for malignant neoplasm of colon Oct- 4 English Villagomez. [address] [place], [place], [address], [place]. tel:[phone] Referring Provider: Hernando Velasquez, [place], [address] . tel:[phone] [facility] [place], [address], [place], [place], [address] , [place] tel: [phone] [facility] No Information 4 English Villagomez. [address] [place], [place], [address], [place]. tel:[phone] [facility] [place], [address], [place], [place], [address] , [place] tel: [phone] [facility] No Information 3 English Villagomez. [address] [place], [place], [address], [place]. tel:[phone] [facility], [address], [place], [place], [address] , [place] tel: [phone] [facility] No Information 3 Ben Price. [address] [facility], [address] [address], [place], [place], [address], [place]. [phone] Referring Provider: Hernando Velasquez, [address] [place], [address] . tel:[phone] OFFICE ECERN-NSA-CP TAILED [facility], [address], [place], [place], [address] , [place] tel: [phone] [facility] chronic conditions (chief complaint) COPD with asthmaGAD (generalized anxiety disorder)[facility] ntial hypertensionC hronic GERD 3 English Villagomez. [address] [place], [place], [address], [place]. tel:[phone] Referring Provider: Hernando Velasquez, [place], [address] . tel:[phone] [facility], [address], [place], [place], [address] , [place] tel: [phone] [facility] Vitamin D deficiency 3 English Villagomez. [address] [place], [place], [address], [place]. tel:[phone] [facility], [address], [place], [place], [address] , tel: [phone] [facility] No Information 3 Ben Price. [address] [facility], [address] [address], [place], [place], [address], [place]. tel:[phone] Referring Provider: [place], [address] . tel:[phone] PREVENTATIVE -EST: 65 & OVER [facility], [address], [place], [place], [address] , tel: [phone] [facility] px (chief complaint) History of above-knee amputation of left lower extremityChro kamryn hypoxemic respiratory failureEssent ial hypertensionC erebral atrophyChroni c GERDCOPD with asthmaEncount er for general adult medical examination without abnormal findingsEncou nter for screening mammogram for malignant neoplasm of breast 3 English Villagomez. [address] [place], [place], [address], [place]. tel:[phone] Referring Provider: [place], [address] . tel:[phone] [facility], [address], [place], [place], [address] , [place] tel: [phone] [facility] [place] Herpesviral infection of urogenital system Sep- 3 [place] Hernando. [address] [place], [place], [address], [place]. tel:[phone] [facility] [place], [address], [place], [place], [address] , [place] tel: [phone] [facility] [place] No Information 3 [place] Hernando. [address] [place], [place], [address], [place]. tel:[phone] [facility] [place], [address], [place], [place], [address] , [place] tel: [phone] [facility] Follow-up exam 3 [place] Hernando. [address] [place], [place], [address], [place]. tel:[phone] OFFICE TQZVJ-EMQ-QR PANDED [facility], [address], [place], [place], [address] , [place] tel: [phone] [place] Nocturnal leg cramps 2 English Villagomez. [address] [place], [address], [place]. tel:[phone] Referring Provider: [place], [address] . tel:[phone] [facility], [address], [place], [place], [address] , [place] tel: [phone] [place] Hyponatremia May- 2 English Villagomez. [address] [place], [address], [place]. tel:[phone] Referring Provider: [place], [address] . tel:[phone] [facility], [address], [place], [place], [address] , [place] tel: [phone] [place] Low sodium levels Apr- 2 English Villagomez. [address] [place], [address], [place]. tel:[phone] Referring Provider: [place], [address] . tel:[phone] [facility], [address], [place], [place], [address] , tel: [phone] [facility] Essential hypertension 2 [place] Hernando. [address] [place], [address], [place]. tel:[phone] Referring Provider: [place], [address] . tel:[phone] OFFICE LEGGU-AND-UT [facility], [address], [place], [place], [address] , tel: [phone] [facility] Chronic Conditions (chief complaint) Body mass index [BMI] 36.0-36.9, adultEssentia l (primary) hypertensionM igraine, unspecified, not intractable, without status migrainosusMo rbid (severe) obesity due to excess caloriesAorti c atheroscleros is Mar- 2 [place] Hernando. [address] [place], [address], [place]. [phone] Referring Provider: [place], [address] . tel:[phone] [facility], [address], [place], [place], [address] , tel: [phone] Aaron Cough, persistent Mar- 2 English Villagomez. [address] [place], [address], [place]. tel:[phone] [facility], [address], [place], [address] , [place] tel: [phone] [facility] No Information 2 English Villagomez. [address], [address], [place]. tel:[phone] [facility], [address], [place], [place], [address] , tel: [phone] [facility] No Information 2 English Villagomez. [address] [place], [place], [address], [place]. tel:[phone] Referring Provider: [place], [address] . tel:[phone] OFFICE ZJJNX-CCY-LF PANDED [facility], [address], [place], [place], [address] , [place] tel:[phone] [facility] Discuss Power chair (chief complaint) History of above-knee amputation of left lower extremityChro kamryn hypoxemic respiratory failure 2 English Villagomez. [address] [place], [place], [address], [place]. tel:[phone] Referring Provider: [place], [address] . tel:[phone] [facility], [address], [place], [place], [address] , [place] tel: [phone] Aaron Encounter for screening for malignant neoplasm of colonEncounte r for screening for malignant neoplasm of colon Apr-0 2 English Villagomez. [address] [place], [place], [address], [place]. tel:[phone] PREVENTATIVE -EST: 65 & OVER [facility], [address], [place], [place], [address] , [place] tel:[phone] [facility] PX (chief complaint) Annual physical examChronic hypoxemic respiratory failureEssent ial (primary) hypertensionH istory of above-knee amputation of left lower extremityChro kamryn GERDCerebral atrophyCOPD with asthmaLow back pain, unspecifiedBo dy mass index [BMI] 35.0-35.9, adultDecrease d pulseMixed hyperlipidemi aHyperglycemi a Mar- 2 English Villagomez. [address] [place], [address], [place]. tel:[phone] Referring Provider: [place], [address] . tel:[phone] OFFICE UEQVC-NUZ-AT TAILED [facility], [address], [place], [place], [address] , [place] tel:[phone] [facility] f/u (chief complaint) Body mass index [BMI] 33.0-33.9, adultChronic hypoxemic respiratory failureHistor y of above-knee amputation of left lower extremityChro kamryn GERDCerebral atrophyEssent ial (primary) hypertensionS tage 3 chronic kidney disease, unspecified whether stage 3a or 3b CKDCOPD with asthmaHyperli pidemia, unspecified hyperlipidemi a typeAortic atheroscleros isOther chronic painGAD (generalized anxiety disorder)Hype rglycemiaPorp hyria 1 English Villagomez. [address] [place] [address], [address], [place]. tel:[phone] Referring Provider: [place], [address] . tel:[phone] [facility], [address], [place], [place], [address] , [phone] [place] No Information 1 English Villagomez. [address] [place] [address], [address], [place]. 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 [address] [place], [place], [address], [place]. tel:[phone] Referring Provider: [place], [address] . [phone] [facility], [address], [place], [place], [address] , [phone] Aaron Breast calcification s 0 English Villagomez. [address] [place], [address], [place]. tel:[phone] [facility], [address], [place], [place], [address] , [place] tel: [phone] [facility] No Information 9 English Villagomez. [address] [place], [place], [address], [place]. [phone] Referring Provider: Hernando Velasquez, [address] [place], [address] . tel:[phone] OFFICE RIQAH-RZO-VC [facility], [address], [place], [place], [address] , [place] tel: [phone] [facility] f/u (chief complaint) Syncope, unspecified syncope typeChronic low back pain, unspecified back pain laterality, unspecified whether sciatica presentOther chronic painAKI (acute kidney injury)Hyperk alemiaBody mass index (BMI) 40.0-44.9, adultMorbid (severe) obesity due to excess calories Dejesus Kay. [address] [place], [place], [address], [place]. tel:[phone] Referring Provider: Hernando Velasquez [address] [place], [address] . tel:[phone] OFFICE PXHCC-HLZ-XH [facility], [address], [place], [place], [address] , [place] tel: [phone] Aaron 1 week follow up (chief complaint) LUAN (acute kidney injury) 9 English Villagomez. [address] [place], [place], [address], [place]. tel:[phone] Referring Provider: Hernando Velasquez [address] [place], [address] . tel:[phone] [facility], [address], [place], [place], [address] , [place] tel: [phone] [facility] No Information 9 English Villagomez. [address] [place], [address], [place]. tel:[phone] [facility], [address], [place], [place], [address] , tel: [phone] Aaron Flu shot (chief complaint) Essential hypertensionE ncounter for immunization 9 English Villagomez. [address] [place], [address], . tel:[phone] Referring Provider: [place], [address] . tel:[phone] [facility], [address], [place], [place], [address] , tel: [phone] Aaron Essential hypertension 9 Citizen [place] Hernando. [address], [address], . tel:[phone] Referring Provider: [place], [address] . tel:[phone] OFFICE BYVYB-MXP-SE [facility], [address], [place], [place], [address] , tel: [phone] Aaron 6 month (chief complaint) Essential (primary) hypertensionC hronic GERDCerebral atrophyBody mass index (BMI) 40.0-44.9, adultMorbid (severe) obesity due to excess caloriesNeuro pathyLong term current use of opiate analgesic 9 [place] Hernando. [address], [place], [address], [place]. [phone] Referring Provider: [place], [address] . tel:[phone] [facility], [address], [place], [place], [address] , tel: [phone] Aaron Breast calcification s 9 English Villagomez. [address] [place], [address], [place]. tel:[phone] [facility], [address], [place], [place], [address] , tel: [phone] [facility] No Information 9 English Villagomez. [address] [place], [address], . tel:[phone] [facility], [address], [place], [place], [address] , tel: [phone] Aaron Hormone replacement therapySympto ms such as flushing, sleeplessness , headache, lack of concentration , associated with natural (age-related) menopause Oct- 9 English Villagomez. [address], [address], . tel:[phone] [facility], [address], [place], [address] , tel: [phone] [place] sore under Left arm (chief complaint) Abscess of axilla English Villagomez. [place], [address], [place]. tel:[phone] Referring Provider: [place], [address] . tel:[phone] [facility], [address], [place], [place], [address] , tel: [phone] [place] sores under left arm (chief complaint) Abscess of axilla 9 English Villagomez. [address], [address], [place]. tel:[phone] Referring Provider: [place], [address] . tel:[phone] [facility], [address], [place], [place], [address] , tel: [phone] [place] SeizureMixed hyperlipidemi aEssential (primary) hypertensionC hronic GERDAortic atheroscleros isEsophageal strictureNeur opathy Citizen [place] Hernando. [address] [place], [place], [address], . tel:[phone] Referring Provider: [place], [address] . tel:[phone] [facility], [address], [place], [place], [address] , tel: [phone] [place] No Information 8 Citizen [place] Hernando. [address], [address], [place]. [phone] Referring Provider: Hernando Velasquez, [address] [place], [address] . tel:[phone] [facility], [address], [place], [place], [address] , tel: [phone] [place] Body mass index (BMI) 33.0-33.9, adultEssentia l (primary) hypertensionC OPD with asthmaChronic GERDHyperlipi demia, unspecified hyperlipidemi a typeInsomnia disorder, with non-sleep disorder mental comorbidity, recurrent Citizen [place] Hernando. [address] [place], [address], . tel:[phone] Referring Provider: [place], [address] . tel:[phone] [facility], [address], [place], [place], [address] , tel: [phone] [place] Abscess of neck 8 Citizen [place] Hernando. [address], [address], [place]. tel:[phone] Referring Provider: [place], [address] . tel:[phone] [facility] [facility], [address], [place], [place], [address] , [place] tel: [phone] [place] Chronic respiratory failure with hypoxiaAortic atheroscleros isGAD (generalized anxiety disorder)[facility] ntial (primary) hypertension 8 [place] Hernando. Clair [place], [place], [address], [place]. tel:[phone] Referring Provider: [place], [address] . tel:[phone] [facility], [address], [place], [place], [address] , tel: [phone] [place] termite helper current use of opiate analgesicSore throat 8 English Villagomez. Clair [place], [address], . tel:[phone] Referring Provider: Hernando Velasquez, [place], [address] . tel:[phone] [facility], [address], [place], [place], [address] , tel: [phone] [place] Hyponatremia Sep-0 8 English Villagomez. Clair [place], [address], [place]. tel:[phone] Referring Provider: Hernando Velasquez, [place], [address] . tel:[phone] [facility], [address], [place], [place], [address] , tel: [phone] [place] Chronic respiratory failure with hypoxiaUnspec ified convulsionsEs sential (primary) hypertensionM orbid (severe) obesity due to excess caloriesGastr oparesis 8 English Villagomez. Cl[place], [address], . tel:[phone] Referring Provider: Hernando Velasquez, [place], [address] . tel:[phone] [facility], [address], [place], [place], [address] , tel: [phone] [place] SOB (shortness of breath) 7 English Villagomez. Clair [place], [address], [place]. tel:[phone] [facility], [address], [place], [place], [address] , tel: [phone] [place] Morbid obesity due to excess caloriesSeizu reChronic respiratory failure, unspecified whether with hypoxia or hypercapniaOt her and unspecified hyperlipidemi aAortic atheroscleros isOsteoarthri tis of knee, unspecifiedBi polar 1 disorderEssen tial tremor 7 [place] Hernando. 4 [place], [place], [address], [place]. tel:[phone] Referring Provider: Hernando Velasquez, 4 [place], [address] . tel:[phone] [facility], [address], [place], [place], [address] , tel: [phone] [place] Chronic respiratory failure, unspecified whether with hypoxia or hypercapniaBi polar 1 disorderClass 3 obesity with serious comorbidity and body mass index (BMI) of 40.0 to 44.9 in adult, unspecified obesity typeSeizureSO B (shortness of breath)Benign essential hypertension 7 English Villgaomez. 4 [place], [place], [address], [place]. tel:[phone] Referring Provider: Hernando Velasquez, [place], [address] . tel:[phone] [facility], [address], [place], [place], [address] , tel: [phone] [place] Weakness 7 Eder Kennedy. [address], [facility], . tel:[phone] [facility], [address], [place], [place], [address] , tel: [phone] [place] Weakness 7 Eder Kennedy. [address], [facility], . tel:[phone] [facility], [address], [place], [place], [address] , tel: [phone] [place] Essential hypertensionM ixed hyperlipidemi aModerate episode of recurrent major depressive disorderSeizu reGastroesoph ageal reflux disease, esophagitis presence not specifiedMorb id obesity due to excess caloriesSyndr ome of inappropriate antidiuretic hormone 7 Eder Kennedy. [address], [address], [address], . tel:[phone] Referring Provider: Marcia Gaines, [address] [address], [place], [facility]. tel:[phone] [facility], [address], [place], [place], [address] , tel: [phone] [place] Screening mammogram, encounter for 7 Eder Marcia. [address], [facility], [place]. tel:[phone] [facility], [address], [place], [place], [address] , tel: [phone] [place] SOB (shortness of breath)Acute rhinosinusiti s [facility]. [address] [place] [address], [address], . tel:[phone] Referring Provider: Marcia Gaines, [facility], [facility]. tel:[phone] [facility], [address], [place], [place], [address] , tel: [phone] Aaron SeizureEssent ial hypertensionH yponatremiaMi xed hyperlipidemi aMorbid obesity due to excess caloriesModer ate episode of recurrent major depressive disorderLong term use of drug 6 Eder Cooperfer. [address], [facility], [place]. tel:[phone] Referring Provider: Marcia Gaines, [address], [address]. tel:[phone] [facility], [address], [place], [place], [address] , tel: [phone] [place] SOB (shortness of breath) 6 Eder Marcia. [address], [address], [place]. tel:[phone] [facility], [address], [place], [place], [address] , [place] tel: [phone] [place] Pathological fracture, left ankle, sequela Sep-2 8-201 6 Edersky Delacruznifer. 1414 [facility], [address], [place], [address], [place]. tel: [phone] [facility], [address], [place], [place], [address] , [place] tel: [phone] [place] Pathological fracture, left ankle, sequela Sep-2 3-201 6 Edersky Kennedy. [address] [facility], [place], [address], [place]. tel:[phone] [facility], [address], [place], [place], [address] , [place] tel: [phone] [place] Pathological fracture, left ankle, sequela Sep-1 6-201 6 Eder Cooperfer. 14[address] [facility], [address], [place], [address], [place]. tel: [phone] [facility], [address], [place], [place], [address] , [place] tel: [phone] [place] SANTI (obstructive sleep apnea) May-2 6 Giovanny Mixh. 4 [place], [place], [address]. tel: [phone] [facility], [address], [place], [place], [address] , [place] tel: [phone] [place] Carpal tunnel syndrome, unspecified upper limb Apr-1 8- 6 Meg Self [place], [address], [place]. tel:[phone] [facility], [address], [place], [place], [address] , [place] tel: [phone] [place] Osteoarthriti s of knee, unspecified Apr-0 6-201 6 Meg Serrano [address] [place], [place], [address], [place]. tel:[phone] [facility], [address], [place], [place], [address] , [place] tel: [phone] [place] Chronic, continuous use of opioidsOther and unspecified hyperlipidemi aImpaired fasting glucoseSleep apnea, unspecified typeEssential (primary) hypertensionF yanci Lane irwin 6 Meg Toney. 4 [place], [place], [address], [place]. tel:[phone] Referring Provider: Feng Whitley, [address] [place], [address] . tel:[phone] [facility], [address], [place], [place], [address] , [place] tel: [phone] [place] Impaired fasting glucoseOther and unspecified hyperlipidemi aChronic, continuous use of opioids 6 Meg Toney. 4 [place], [place], [address], [place]. tel:[phone] Referring Provider: Feng Whitley, [address] [place], [address] . tel:[phone] [facility], [address], [place], [place], [address] , [place] tel: [phone] [place] Lung nodule seen on imaging study 6 Meg Toney. 4 [place], [place], [address], [place]. tel:[phone] [facility], [address], [place], [place], [address] , [place] tel: [phone] [place] Sleep apnea, unspecified type 6 Meg Toney. 4 [place], [place], [address], [place]. tel:[phone] [facility], [address], [place], [place], [address] , [place] tel: [phone] [place] Syndrome of inappropriate antidiuretic hormone 5 Meg Toney. [address] [place], [place], [address], [place]. tel:[phone] Referring Provider: Feng Whitley, [address] [place], [address] . tel:[phone] [facility], [address], [place], [place], [address] , [place] tel: [phone] [place] Low serum sodiumSyndrom e of inappropriate antidiuretic hormone May-0 9 5 Meg Self [place], [address], [place]. tel:[phone] [facility], [address], [place], [place], [address] , tel: [phone] [place] Low sodium levels 0 5 Meg Slef [place], [address], [place]. tel:[phone] Referring Provider: Feng Whitley, [address] [place], [address] . tel:[phone] [facility], [address], [place], [place], [address] , [place] tel: [phone] [place] DermatitisEss ential (primary) hypertensionE ncntr for general adult medical exam w/o abnormal findingsHypon atremia 0 5 Torin John. [address] [place], [address], [place]. tel:[phone] Referring Provider: Feng Whitley, [address] [place], [address] . tel:[phone] [facility], [address], [place], [place], [address] , [place] tel: [phone] [place] Sleep apnea, unspecified 5 Meg Self [place], [address], [place]. tel:[phone] [facility], [address], [place], [place], [address] , tel: [phone] [place] Hyperosmolali ty and/or hypernatremia Unspecified disease of white blood cells Apr-0 8201 5 Meg Self [place], [address], [place]. tel:[phone] Referring Provider: Feng Whitley, [address] [place], [address] . tel:[phone] [facility], [address], [place], [place], [address] , tel: [phone] [place] Insomnia with sleep apnea, unspecifiedBe nign essential hypertensionB ackache, unspecifiedOt her and unspecified hyperlipidemi aOsteoarthros is, generalized, involving unspecified siteEsophagea l refluxOther convulsionsRi ght knee DJDAnalgesic useRoutine general medical examination at a health care facility Sep- 0 5 Meg Toney. 4 [place], [place], [address], [place]. tel:[phone] Referring Provider: Feng Whitley, [address] [place], [address] . tel:[phone] [facility], [address], [place], [place], [address] , [place] tel: [phone] [place] Impaired fasting glucose Sep-0 9 5 Meg Toney. 4 [place], [place], [address], [place]. tel:[phone] Referring Provider: Feng Whitley, [address] [place], [address] . tel:[phone] [facility], [address], [place], [place], [address] , [place] tel: [phone] [place] Benign essential hypertensionU nspecified idiopathic peripheral neuropathyIns omnia with sleep apnea, unspecifiedOt her convulsionsIr ritable bowel syndromeGenit al herpes, unspecified Feb-0 5-201 5 Torin John. [address] [place], [address], [place]. tel:[phone] Referring Provider: Feng Whitley, [address] [place], [address] . tel:[phone] [facility], [address], [place], [place], [address] , [place] [phone] [place] No Information Apr- 4 Meg Toney. [address] [place], [place], [address], . tel:[phone] Referring Provider: Feng Whitley, [address] [place], [address] . tel:[phone] [facility], [address], [place], [place], [address] , [place] tel:[phone] [place] Neoplasm of uncertain behavior of face Mar-2 4 [facility] Dora. [facility] [place], [address], [place]. tel:[phone] [facility] [facility], [address], [place], [address] , tel:[phone] [place] Benign essential hypertensionB ackache, unspecifiedOt her and unspecified hyperlipidemi aUnspecified idiopathic peripheral neuropathyCTS (carpal tunnel syndrome)SANTI on CPAP 3 4 Meg Toney. 4 [place], [place], [address], . tel:[phone] Referring Provider: Feng Whitley, [address] [place], [address] . tel:[phone] [facility], [address], [place], [place], [address] , [phone] [place] Snoring November-2 4 Torin John. [facility] [place], [address], [place]. tel:[phone] [facility], [address], [place], [address] , [place] tel:[phone] [place] BENIGN HYPERTENSIONH YPERLIPIDEMIA NEC/NOSLong-t erm (current) use of other medicationsFA M HX-DIABETES MELLITUSImpai red fasting glucose November-0 4 Meg Toney. [address] [place], [place], [address], [place]. tel:[phone] Referring Provider: Feng Whitley, [address] [place], [address] . tel:[phone] [facility], [address], [place], [place], [address] , [place] tel: [phone] [place] Iron deficiency anemia Fe 4 Meg Toney. [address] [place], [place], [address], [place]. tel:[phone] Referring Provider: Feng Whitley, [address] [place], [address] . tel:[phone] [facility], [address], [place], [place], [address] , [place] tel: [phone] No Information 3 3 Giovanny Dela Cruz. 4 [place], [address]. tel:[phone] [facility], [address], [place], [place], [address] , [place] tel: [phone] [place] No Information 3 Meg Toney. [address] [place], [place], [address], [place]. tel:[phone] [facility], [address], [place], [place], [address] , [place] tel: [phone] [place] IRRITABLE BOWEL SYNDROMEBENIG N HYPERTENSIONI NINA PERIPH NEURPTHY NOSESOPHAGEAL REFLUXGENERAL OSTEOARTHROSI SCONVULSIONS NECHeart murmur Apr-0 3 Torin John. [address] [place], [address], [place]. tel:[phone] Referring Provider: Feng Whitley, [address] [place], [address] . tel:[phone] [facility], [address], [place], [address] , [place] tel: [phone] [place] Cough 3 Meg Toney. [address] [place], [place], [address], [place]. tel:[phone] [facility], [address], [place], [place], [address] , tel: [phone] [place] BENIGN HYPERTENSIONB ACKACHE NOSCONVULSION S NECRight knee DJDEsophageal refluxOther and unspecified hyperlipidemi a 3 Meg Toney. [address] [place], [place], [address], . tel:[phone] Referring Provider: Feng Whitley, [address] [place], [address] . tel:[phone] [facility], [address], [place], [place], [address] , tel: [phone] [place] Other and unspecified hyperlipidemi aBenign essential hypertensionL coleen-term (current) use of other medications 3 Meg Toney. [address] [place], [place], [address], . tel:[phone] Referring Provider: Feng Whitley, [address] [place], [address] . tel:[phone] [facility], [address], [place], [place], [address] , tel: [phone] [place] No Information 2 Meg Toney. [address] [place], [place], [address], . tel:[phone] Referring Provider: Feng Whitley, [address] [place], [address] . tel:[phone] [facility], [address], [place], [place], [address] , tel: [phone] [place] IDIO PERIPH NEURPTHY NOSCONVULSION S NECBENIGN HYPERTENSIONG ENITAL HERPES NOSHYPERLIPID EMIA NEC/NOSAllerg ic rhinitis 2 Torin John. [address] [place], [address], [place]. tel:[phone] Referring Provider: Feng Whitley, [address] [place], [address] . tel:[phone] [facility], [address], [place], [place], [address] , tel: [phone] [place] Blood in stool 2 Meg Toney. [address] [place], [place], [address], . tel:[phone] Referring Provider: Feng Whitley, [address] [place], [address] . tel:[phone] [facility], [address], [place], [place], [address] , tel: [phone] [place] Long-term (current) use of other medications 1 Meg Serrano [address] [place] [address], [address], . tel:[phone] Referring Provider: Feng Whitley, [address] [place], [address] . tel:[phone] [facility], [address], [place], [place], [address] , tel: [phone] [place] No Information 1 Meg Toney. [address] [place] [address], [address], . tel:[phone] Referring Provider: Feng Whitley, [address] [place] [address], [address] . tel:[phone] [facility], [address], [place], [place], [address] , tel: [phone] [place] HYPERLIPIDEMI A NEC/NOSLONG-T ERM USE MEDS NEC 1 Meg Self [place], [address], [place]. [phone] [facility], [address], [place], [place], [address] , tel: [phone] [place] No Information 1 Meg Self [place], [address], [place]. tel:[phone] [facility], [address], [place], [place], [address] , [place] tel: [phone] [place] IDIO PERIPH NEURPTHY NOS 1 Torin John. [address] [place], [address], [place]. tel:[phone] [facility], [address], [place], [place], [address] , [place] tel: [phone] [place] BENIGN HYPERTENSION 1 Meg Self [place], [place], [address], [place]. tel: [phone] [facility], [address], [place], [place], [address] , [place] tel: [phone] [place] HERPES ZOSTER NOS Jun- 0 Meg Self [place], [address], [place]. tel: [phone] [facility], [address], [place], [address] , [place] tel: [phone] [place] SCREEN MALIG NEOP-COLON 0 Meg Serrano [address] [place] [address], [address], [place]. tel: [phone] [facility], [address], [place], [place], [address] , [place] tel: [phone] [place] VACCIN FOR INFLUENZA 201 0 Meg Serrano [address] [place] [address], [address], [place]. tel: [phone] [facility], [address], [place], [place], [address] , [place] tel: [phone] [place] TEAR FILM INSUFFIC NOS Sep-0 2-201 0 [facility] Doctor. [address] [facility], [place], [address], [place]. [facility], [address], [place], [address] , [place] tel: [phone] [place] FAM HX-DIABETES MELLITUS 2 0 Sugeysilvina Self [place], [address], [place]. tel:[phone] [facility], [address], [place], [place], [address] , tel: [phone] [place] GENERAL OSTEOARTHROSI S 0 Sugeysilvina Self [place], [address], [place]. tel:[phone] [facility], [address], [place], [place], [address] , tel: [phone] [place] GENITAL HERPES NOS 0 Sugeysilvina Serrano [address] [place], [place], [address], [place]. tel:[phone] [facility], [address], [place], [place], [address] , tel: [phone] [place] CONVULSIONS NEC 6200 9 Sugeysilvina Serrano Clair [place], [address], [place]. tel:[phone] [facility], [address], [place], [place], [address] , tel: [phone] [place] No Information 0 2200 8 Sugeysilvina ToneyViraj Self [place], [place], [address], [place]. tel:[phone] [facility], [address], [place], [place], [address] , tel: [phone] [place] MIGRNE UNSP WO NTRC MGRNESOPHAGEA L REFLUX 0 7 Meg Self [place], [place], [address], [place]. tel:[phone] [facility], [address], [place], [place], [address] , tel: [phone] [place] HORMONE REPLACE POSTMENO 9-200 7 Meg Self [place], [place], [address], . tel:[phone] [facility], [address], [place], [place], [address] , tel: [phone] [employer] SCREEN LIPOID DISORDERS 5 Meg Serrano [address] [place], [place], [address], . tel:[phone] [facility], [address], [place], [place], [address] , tel: [phone] [place] ROUTINE MEDICAL EXAM 3 Meg Self [place], [place], [address], . tel:[phone] [facility], [address], [place], [place], [address] , tel: [phone] [place] SCREEN MAL NEOP OT SITE 2 Meg Self [place], [address], . tel:[phone] Family History Family Member Type Diagnosis Age At Onset Problem (finding) Family history of Menta l illness Father Problem (finding) alcoholism Mother Problem (finding) coronary arterioscleros is Brother Problem (finding) suicide (Cause Of ) Mother Problem (finding) hypertension Problem (finding) Family history of depre ssion Mother Problem (finding) Peripheral vascular dis ease Mother Problem (finding) depression Mother Problem (finding) osteoarthritis Mother Problem (finding) osteoporosis Father Problem (finding) diabetes melli tus in first degree relative Problem (finding) Family history of hyper tension Problem (finding) Family history of alcoh olism Mother Problem (finding) Allergies Mother Problem (finding) diabetes melli tus in first degree relative Mother Problem (finding) Mental illness Father Problem (finding) coronary arterioscleros is Problem (finding) Family history of raise d blood lipids Brother Problem (finding) Father Problem (finding) hypertension Family h/o Problem (finding) DIABETES MELLITUS Problem (finding) Family history of Heari ng impairment Father Problem (finding) Obesity Immunizations Vaccine Date Status Comments COVID-19, mRNA, [...] doses, administered 21 days apart [facility] ; Source: Other Provider Fluzone High-Dose, high dose , preservative free administered Note: done at the MD (date is approximate) ; Source: Source Unspecified Pfizer-BioNTech COVID19 Vaccine, 0.3mL per dose, 2 doses, administered 21 days apart administered Note: [facility] ; Source: Source Unspecified Pfizer-BioNTech COVID19 Vaccine, 0.3mL per dose, 2 doses, administered 21 days apart administered Note: [facility] ; Source: Source Unspecified pneumococcal polysaccharide vaccine, 23 valent administered Note: hospital ; [facility] rce: Source Unspecified Flublok, quadrivalent, preservative free, 0.5mL dosage administered Source: New Immunization Record SHINGRIX (Zoster vaccine recombinant, adjuvanted) administered Note: will get the next one in December ; Source: Source Unspecified Pneumococcal conjugate PCV 13 administere d Source: Source Unspecified Flublok, quadrivalent, preservative free, 0.5mL dosage administered Source: New Immunization Record Pneumococcal polysaccharide PPV23 administered Source: New Immuniza tion Record Fluzone Quad 3034-0963, preservative free, split virus, 0.5mL dosage administered Source: New Immuniza tion Record Pneumococcal conjugate PCV 13 administere d Source: New Immunization Record Influenza, injectable, quadrivalent, preservative free, 3 yrs or older administered Source: New Immuniz ation Record Influenza, injectable, quadrivalent, preservative free, 3 yrs or older administered Source: New Immuniz ation Record Fluzone administered Note: [facility] [id number] ; Source: New Immunization Record Fluzone administered Note: [facility]# [id number] ; Source: New Immunization Record Flu (split) (3 yrs or older) administered Source: New Immunization Record 39414 - Influenza administered Source: So urce Unspecified 05910 - Influenza administered Source: So urce Unspecified 30188 - Pneumococcal_PPV23 administered S ource: Source Unspecified 44865 - Influenza administered Source: So urce Unspecified 43759 - Influenza administered Source: So urce Unspecified 34359 - Influenza administered Source: So urce Unspecified 11812 - Influenza administered Source: So urce Unspecified 99237 - Influenza administered Source: So urce Unspecified 90345 - Influenza administered Source: So urce Unspecified Payers Payer name Insurance type Covered constitution party ID Authoriza tion(s) AETNA PPO CI [id number] AETNA PPO CI [id number] AETNA PPO CI [id number] AETNA [facility] [place] [id number] [facility] [id number] AETNA [facility] MB [id number] [facility] [place] [id number] [facility] [place] [id number] [facility]NA [facility] [place] [id number] Social History Type Description Quantity Date Captured [...] and counseling completed Referral Referred To: [address] [place], [id number] Ordered: SCREENING MAMMOGRAM (CAD) ordered Referral Ordered: JUAN C POLANCO -Allopathic & Osteopathic Physicians : Orthopaedic Surgery (related to Follow-up exam) ordered Referral Referred To: JUAN C POLANCO [address] [place], [phone] Ordered: Referrals: Orthopedic Surgery. JUAN C POLANCO. Evaluation/diagnostic/treatment - Level 3 Appointment date/timeframe: 09/24/2022 ordered Referral Ordered: COLONOSCOPY, Flexible, Proximal To Splenic, Diagnostic, Wor W/O Collection Of Sp ordered Referral Ordered: HANG (ankle brachial index) ordered Referral Referred To: Dean Stephenson MD [address] [place]. [address] [place] [address], [phone] Ordered: Referrals: Pulmonology. Dean Stephenson MD. Evaluation/diagnostic/treatment [...] px Chronic conditio nsrespiratouyr failure-- uses oxygen all th etimecopd-- breathing has been done at allhtn-- controlled at homecerebral aterophy-- memory [place]--- doing [...] weightpt cannot walk at all bc of [id number] strength in right legstrengthin right arm 2/5strength [...] screeningimmunizations--utdmood-- up and downmemory-- fine hospital and [facility] f/u re spiratpry failure-- still on oxygenleft [...] while I was in [place], and pt. was in their home in [place]. OV for form Patient presents for [...] for hospital follow-up. She was admitted to [facility] on 06/10/2019. Patient presented to ER with [...] x-ray. Patient was given home doses of Belmont and was given Flexeril, lidocaine patches and [...] capsaicin, Baclofen PO and home dose of Belmont. Patient was discharged with no new medications. She had no other imaging performedPatient was noted to have hyperkalemia one month ago. We will check labs todayShe has a TENS units (latex free) but she still has a rash from the patches.Patient feels that her hydrocodone needs to be increased. She is not getting any pain relief from the Belmont 7.5mg every 8 hoursPatient also reports that [...] any better sore under Left arm getting betdontae self has two small red bumps under armno feevron abx sores under left arm tenderred, bulginglow grade fever Functional Status Date Functional Assessmen t No Information Instructions Date Instruction Additional Infor tracy will check bmp and urine Related to Hyponatremia Medication management continue medslow salt diet Relat ed to Essential hypertension continue meds as needed Related to JACKIE (generalized anxiety disorder) continue meds Related to Chron ic GERD continue inhalercall if breathing worsens Related to COPD with asthma annual flu shotget r sv vaccineneeds colonoscopy Related to Encounter for general adult medical examination without abnormal findings continue to use wheelchair Relat ed to History of above-knee amputation of left lower extremity will start memantine Related to Cerebral atrophy Fall Risk Prevention Medication management Urinary Incontinence continue meds Related to Chron ic GERD continue inhalers Related to [employer] D with asthma continue medslow salt diet Relat ed to Essential hypertension continue medsstay active Related to JACKIE (generalized anxiety disorder) Medication management continue meds Related to Chron ic GERD will monitor memory Related to C erebral atrophy use inhaler Related to COPD with asthma continue medslow salt diet Relat ed to Essential hypertension contune to use wheelchair Relate d to History of above-knee amputation of left lower extremity continue oxygen Related to Chron ic hypoxemic respiratory failure needs colonosocpy an d mammogramhealthy dietdo strength training Related to Encounter for general adult medical examination without abnormal findings Urinary Incontinence Fall Risk Prevention Medication management Fall Risk Prevention stretch exercise bef ore bedtake b complex [...] to Body mass index (BMI) 36.0-36.9, adult continue oxygen Related to Chron ic hypoxemic respiratory failure needs power mobility device Rela jeannie to History of above-knee amputation of left lower extremity Medication management needs mammogramcheck FIT test for colon cancer screeninghealth diet stay as active as possiblefollow up in 6 month Related to Annual physical exam continue meds Related to COPD with asthma continue pain pills Related to L ow back pain, unspecified continue to use wheelchair Relat ed to History of above-knee amputation of left lower extremity increase metoprololc all with readings in 1-2 weeks Related to Essential (primary) hypertension continue oxygen Related to Chron ic hypoxemic respiratory failure continue meds Related to Chron ic GERD will montior memory Related to C erebral atrophy will get hang Related to Decre ased pulse Fall Risk Prevention Dietary management e ducation, guidance, and counseling Related to Body mass index (BMI) 35.0-35.9, adult Medication management Urinary Incontinence continue ativan Related to JACKIE ( generalized anxiety disorder) continue pain meds as needed Rel ated to Other chronic pain continue statin Related to Aorti c atherosclerosis contineu to monitor breathing Re lated to COPD with asthma continue statin Related to Hyper lipidemia, unspecified hyperlipidemia type will check bmp Related to Stage 3 chronic kidney disease, unspecified whether stage 3a or 3b CKD continue to use oxygen Related t o Chronic hypoxemic respiratory failure needs wheelchair Related to 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 We w ill fill out form for transportation needs Related to Unsteady gait This is controlled. Continue medications Related to Essential (primary) hypertension Continue gabapentin Related to N europathy This is mild. Adonis adams continue to monitor Related to Cerebral atrophy This is a common fin ding on chest imaging with mild plaque build up on the aorta. Continue to work on good blood pressure and cholesterol control to reduce risk of stroke and heart attack Related to Aortic atherosclerosis Continue medications . Avoid foods that trigger symptoms Related to Chronic GERD Encourage healthy diet and exerc ise Related to Morbid (severe) obesity due to excess calories We will check labs today Related to Hyperkalemia Follow-up with pain management as scheduled Related to Chronic low back pain, unspecified back pain laterality, unspecified whether sciatica present Follow-up with pain management as scheduled Related to Other chronic pain No new episodes of syncope Relat ed to Syncope, unspecified syncope type We will check BMP today Related to LUAN (acute kidney injury) Dietary management e ducation, guidance, and counseling Related to Body mass index (BMI) 40.0-44.9, adult will recheck bmpchec k uago lasix once a dayif kidney function still down, will get renal us Related to LUAN (acute kidney injury) Medication management bp at goalcontinue medscheck bmp Related to Essential (primary) hypertension need to decrease royce orieslow carb diet Related to Morbid (severe) obesity due to excess calories will add additiuonal dose of gabapentin at night Related to Neuropathy stablecontinue meds Related to C hronic GERD see below Related to Body mass index (BMI) 40.0-44.9, adult lillie continue to monitor mem ory Related to Cerebral atrophy Medication management Dietary management e ducation, guidance, and counseling Related to Body mass index (BMI) 40.0-44.9, adult sally coates has some hydranitis suppurative Related to Abscess of axilla Medication management fabiana treat with doxyc all next week if not better Related to Abscess of axilla Medication management Assessments Type Assessment Date No Information Patient Care Teams Name Effective Dates (start - stop) Status Members No Information
--- OUTSIDE RECORDS SUMMARY | 2024-08-17 19:44 | XMS_ITS | Encounter Summary ---
Author Organization [facility] Care Team Providers Care Plastic Frame Inserter Name Role Phone Hernando Velasquez MD Primary Care Provider [phone] Jose Manuel Gruber MD Unavailable [phone] Bernardo Edwards MD Primary Care Provider Hernando Velasquez MD Primary Care Provider [phone] Bernardo Edwards MD Primary Care Provider [phone] Bernardo Edwards MD Primary Care Provider [phone] Hernando Velasquez MD Primary Care Provider [phone] Encounter Details Date Type Department Care Team (Latest Contact Info) Description 07/22/2016 Orders Only [facility] CLINCON[facility] ProviderLucille MD [address] [place] [id number] Social History Tobacco Use Types Packs/Day [...] Comments SCAN - LABS 07/23/2016 12:00 AM SKIN FORMER documented in this encounter Results * SCAN - LABS (07/23/2016 12:00 AM SKIN FORMER) Narrative 07/23/2016 12:00 AM SKIN FORMER Ordered by an unspecified provider. us Historical [...] documented as of this encounter Care Teams Plastic Frame Inserter Relationship Specialty Start Date End Date Hernando Velasquez MD [address] [place] [address] PCP - General 12/23/18 06/13/19 Bernardo Edwards MD [address] [place] [address] PCP - General 07/05/20 07/06/20 Hernando Velasquez MD [address] [place] [address] PCP - General 07/07/20 07/07/20 Bernardo Edwards MD [address] [place] [address] PCP - General 07/08/20 01/06/22 Bernardo Edwards MD [address] [place] [address] PCP - General 06/14/19 07/04/20 Hernando Velasquez MD [address] [place] [address] PCP - General Internal Medicine 01/07/22 Jose Manuel Gruber MD [address] [place] [address] Fellow Orthopedic Surgery 07/06/19 documented as of this encounter
--- OUTSIDE RECORDS SUMMARY | 2024-08-17 19:44 | XMS_ITS | Clinical Summary ---
Author Organization [facility] Healthcare Address [address] [place] [address] Care Team Providers Care Recreation Teacher Name Role Phone Jose Manuel Gruber MD Unavailable [phone] Hernando Velasquez MD Primary Care Provider [phone] Allergies Active Allergy Reactions Criticality Noted Date Comments Barbiturates Unknown,Other (See comments) Medium 09/13/2006 Diazepam Unknown,Other (See comments) Low 09/13/2006 Fish Containing Products Anaphylaxis High 07/05/2019 Iodine Unknown,Other (See comments) Low 09/13/2006 Latex Unknown 06/28/2019 Menthol Hives,Itching,Rash Medium 07/08/2022 [place]-3 Fatty Acids Unknown,Other (See comments) Low 12/12/2010 [...] 04/15/2022 Assessment & Plan (07/08/2022 2:39 PM PACKING AND STAMPING MACHINE OPERATOR): I did recommend that the patient decrease [...] 01/07/2022 Assessment & Plan (07/08/2022 2:39 PM PACKING AND STAMPING MACHINE OPERATOR): The patient does have some cough with [...] 01/07/2022 Assessment & Plan (07/08/2022 2:39 PM PACKING AND STAMPING MACHINE OPERATOR): She was intolerant of CPAP therapy and [...] above-knee amput ation of left lower extremity ([facility]) 08/02/2020 COVID-19 07/05/2020 Assessment & Plan (07/11/2020 6:58 AM PACKING AND STAMPING MACHINE OPERATOR): - Patient tested positive for COVID-19 on 06/21/20 at her senior living ([facility] in [place], [place]). - She reports her only symptom [...] SNF. Assessment & Plan (07/07/2020 6:25 PM PACKING AND STAMPING MACHINE OPERATOR): - Pt states she was actually tested [...] protocol Assessment & Plan (07/06/2020 11:59 AM PACKING AND STAMPING MACHINE OPERATOR): - recommend getting records from SNF to establish exact date of first (+) COVID test. - pt likely has completed days of isolation. Assessment & Plan (07/06/2020 7:34 AM PACKING AND STAMPING MACHINE OPERATOR): - Per report, pt was tested for [...] protocol Assessment & Plan (07/05/2020 5:40 PM PACKING AND STAMPING MACHINE OPERATOR): - Per report, pt was tested for [...] 07/05/2020 Assessment & Plan (07/11/2020 6:57 AM PACKING AND STAMPING MACHINE OPERATOR): History of open periprosthetic tibia/fibula fracture s/p [...] left lower extremity. - PM&R consulted. - Electrician Bus placed stump paving rammer / ampushield. Awaiting delivery of limb protector. - Patient not interested in prosthesis at this time. - PT/OT consults. - Plan for patient to return to her prior SNF when medically stable with ongoing PT/OT. - ID and Ortho following. Assessment & Plan (07/07/2020 6:27 PM PACKING AND STAMPING MACHINE OPERATOR): - History of open periprosthetic tibia/fibula fracture [...] extremity Assessment & Plan (07/06/2020 3:07 PM PACKING AND STAMPING MACHINE OPERATOR): - Cellulitis vs subcutaneous infection vs OM [...] recs. Assessment & Plan (07/05/2020 6:03 PM PACKING AND STAMPING MACHINE OPERATOR): - Cellulitis vs subcutaneous infection vs OM [...] (07/08/2020): Added automatically from request for surgery [id number] Abnormal x-ray of extremity 07/20/2019 Acute exacerbation of chronic low back pain 06/26 Biliary colic 07/20/2019 Chronic lumbosacral pain 07/20/2019 Chronic respiratory failure 07/20/2019 Assessment & Plan (07/08/2020 4:27 PM PACKING AND STAMPING MACHINE OPERATOR): - Per pt 2/2 COPD. No sings of acute exacerbation. - Continue home flonase - Continue home albuterol prn - On home is on 4L O2 at baseline Assessment & Plan (07/07/2020 6:26 PM PACKING AND STAMPING MACHINE OPERATOR): - Per pt 2/2 COPD. No sings of acute exacerbation. - Continue home flonase - Continue home albuterol prn - On baseline 4L O2 Assessment & Plan (07/06/2020 7:33 AM PACKING AND STAMPING MACHINE OPERATOR): - Per pt 2/2 COPD. No sings of acute exacerbation. - Continue home flonase - Continue home albuterol prn - On baseline 4L O2 Assessment & Plan (07/05/2020 6:00 PM PACKING AND STAMPING MACHINE OPERATOR): - Per pt 2/2 COPD. No sings of acute exacerbation. - Continue home flonase - Continue home albuterol prn - On baseline 4L O2 Closed displaced bimalleolar fracture of right l ower leg 07/20/2019 Assessment & Plan (07/05/2020 6:01 PM PACKING AND STAMPING MACHINE OPERATOR): - As elsewhere Deep venous insufficiency 07/20/2019 [...] 06/28/2019 Assessment & Plan (07/08/2020 4:26 PM PACKING AND STAMPING MACHINE OPERATOR): - Follows with cardiology. - Continue home amlodipine, metoprolol, lasix, spironolactone. - Switched olmesartan to losartan as not on formulary. Assessment & Plan (07/07/2020 6:26 PM PACKING AND STAMPING MACHINE OPERATOR): - Follows with cardiology - Continue home amlodipine, metoprolol, lasix, spironolactone - Switched olmesartan to losartan as not on formulary Assessment & Plan (07/06/2020 3:04 PM PACKING AND STAMPING MACHINE OPERATOR): - Follows with cardiology - Continue home amlodipine, metoprolol, lasix, spironolactone - Switched olmesartan to losartan as not on formulary Assessment & Plan (07/05/2020 5:58 PM PACKING AND STAMPING MACHINE OPERATOR): - Follows with cardiology - Continue home amlodipine, metoprolol, lasix, spironolactone - Switch olmesartan to losartan as not on formulary Syncope due to sick sinus syndrome (CMS/HCC) 10/2018 Open displaced comminuted fr acture of shaft of left tibia, type IIIA, IIIB, or IIIC 06/28/2019 Overview (06/28/2019): Added automatically from request for surgery [id number] Assessment & Plan (07/08/2020 4:27 PM PACKING AND STAMPING MACHINE OPERATOR): - See above. 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 After hours, the ID fellow group segment consultant can be reached at [phone]. Assessment & Plan (07/05/2020 5:59 PM PACKING AND STAMPING MACHINE OPERATOR): - L tibia and R ankle fractures s/p BRENNA in 06/2020 - Complicated by poor healing and multiple infections of L anterior leg wound - Pt of Dr. Shoemaker Hyponatremia 11/23/2017 Assessment & Plan (07/11/2020 6:59 AM PACKING AND STAMPING MACHINE OPERATOR): - Pt with history of hypoNa (per report, baseline mid 120- low 130s). - Na 126 on admission. No AMS. - TSH wnl. Cortisol 17. - Na stable. Assessment & Plan (07/07/2020 6:26 PM PACKING AND STAMPING MACHINE OPERATOR): - Pt with history of hypoNa (per report, baseline mid 120- low 130s). - Na 126 on admission. No AMS. - TSH wnl. Cortisol 17. - Diuretics were held and Na improved to 132. Restart when able. Assessment & Plan (07/06/2020 7:31 AM PACKING AND STAMPING MACHINE OPERATOR): - Pt with history of hypoNa (per [...] injury 07/20/2019 07/05/20 20 Hyperkalemia 07/20/2019 07/05/2020 Encounters Date Type Department Care Team Description 08/16/2024 Orders Only [facility] Cardiology [address] [place] [address] Vianca David NP from Last 3 Months Immunizations Name Administration Dates Next Due Influenza, [...] Comments Blood Pressure 153/76 07/08/2022 2:24 PM PACKING AND STAMPING MACHINE OPERATOR Pulse 71 07/08/2022 2:24 PM PACKING AND STAMPING MACHINE OPERATOR Temperature 36.5 ??C (97.7 ??F) 01/16/2022 5:20 PM CD T Respiratory Rate 18 07/08/2022 2:24 PM PACKING AND STAMPING MACHINE OPERATOR Oxygen Saturation 96% 07/08/2022 2:24 PM PACKING AND STAMPING MACHINE OPERATOR Inhaled Oxygen Concentration - - Weight 89.4 [...] Breast Cancer Screening-Mammogram 02/19/2024 023 Covid-19 Vaccine (5 - 2024-2 5 season) 2024 07/29/2021, 05/29/2021, 08/14/2020, Additional history exists Influenza Vaccine (#1) 2024 , 05/16/2019, 05/04/2018, Additional history exists DTaP/Tdap/Td Vaccine (2 - Td or Tdap) 06/28/2029 06/28/2019 Pneumococcal vaccine 65+ Completed 018, 05/04/2018, 04/04/2015 Zoster Vaccine Completed 01/25/2019, 10/26, 11/15/2018 Hepatitis C Screening Completed 06/10/2019 Medical Devices Implanted Type Area Home Appraiser Device Identifier Shelf Expiration Date Model / Serial / Lot Synthes 223.581 Lcp Combi [id number] 8 Hole Limit Contact Taper End Plate Bone - S0 - [id number] Implanted:Qty: 1 on 06/28/2019 by Lo Laura DO at [facility] Plate Left: Tibia Synthes I 223.581 / 0 / 0 Synthes 212.106 3.5mm 2.9mm 20mm Self Tap Lock Stardrive Conical Head T15 Full - S0 - [id number] Implanted:Qty: 1 on 06/28/2019 by Lo Laura DO at [facility] Screw Left: Tibia Synthes I 212.106 / 0 / 0 Synthes 212.108 3.5mm 2.9mm 24mm Self Tap Lock Stardrive Conical Head Pelvis T15 - S0 - [id number] Implanted:Qty: 1 on 06/28/2019 by Lo Laura DO at [facility] Screw Left: Tibia Synthes I 212.108 / 0 / 0 Synthes 212.109 3.5mm 2.9mm 26mm Self Tap Lock Stardrive Conical Head T15 Full - S0 - [id number] Implanted:Qty: 1 on 06/28/2019 by Lo Laura DO at [facility] Screw Left: Tibia Synthes I 212.109 / 0 / 0 Synthes 212.104 3.5mm 2.9mm 16mm Self Tap Lock Stardrive Conical Head T15 Full - S0 - [id number] Implanted:Qty: 2 on 06/28/2019 by Lo Laura DO at [facility] Screw Left: Tibia Synthes I 212.104 / 0 / 0 Synthes 212.107 3.5mm 2.9mm 22mm Self Tap Lock Stardrive Conical Head T15 Full - S0 - [id number] Implanted:Qty: 1 on 06/28/2019 by Lo Laura DO at [facility] Screw Left: Tibia Synthes I 212.107 / 0 / 0 Synthes 212.103 3.5mm 2.9mm 14mm Self Tap Lock Stardrive Conical Head T15 Full - [id number] Implanted:Qty: 2 on 06/30/2019 by Jacobo Shoemaker MD at [facility] Left: Tibia Synthes I 212.103 / / Synthes 212.109 3.5mm 2.9mm 26mm Self Tap Lock Stardrive Conical Head T15 Full - [id number] Implanted:Qty: 2 on 06/30/2019 by Jacobo Shoemaker MD at [facility] Left: Tibia Synthes I 212.109 / / Synthes 212.101 3.5mm 2.9mm 10mm Self Tap Lock Stardrive Conical Head T15 Full - [id number] Implanted:Qty: 1 on 06/30/2019 by Jacobo Shoemaker MD at [facility] Left: Tibia Synthes I 212.101 / / Synthes 212.107 3.5mm 2.9mm 22mm Self Tap Lock Stardrive Conical Head T15 Full - [id number] Implanted:Qty: 1 on 06/30/2019 by Jacobo Shoemaker MD at [facility] Left: Tibia Synthes I 212.107 / / Synthes 204.840 3.5mm 6mm 40mm 2.5mm Self Tap Small Hexagonal Socket Low Profile - [id number] Implanted:Qty: 1 on 06/30/2019 by Jacobo Shoemaker MD at [facility] Left: Tibia Synthes I 204.840 / / Synthes 204.832 3.5mm 6mm 32mm 2.5mm Self Tap Small Hexagonal Socket Low Profile - [id number] Implanted:Qty: 1 on 06/30/2019 by Jacobo Shoemaker MD at [facility] Left: Tibia Synthes I 204.832 / / Synthes 241.351 Lcp 12mm [id number] .7mm 5 Hole Collar 1/3 Tubular Plate Bone - [id number] Implanted:Qty: 1 on 06/30/2019 by Jacobo Shoemaker MD at [facility] Left: Tibia Synthes I 241.351 / / Synthes 241.351 Lcp 12mm [id number] .7mm 5 Hole Collar 1/3 Tubular Plate Bone - [id number] Implanted:Qty: 1 on 06/30/2019 by Jacobo Shoemaker MD at [facility] Right: Ankle Synthes I 241.351 / / Synthes 204.826 3.5mm 6mm 26mm 2.5mm Self Tap Small Hexagonal Socket Low Profile - [id number] Implanted:Qty: 1 on 06/30/2019 by Jacobo Shoemaker MD at [facility] Right: Ankle Synthes I 204.826 / / Synthes 212.102 3.5mm 2.9mm 12mm Self Tap Lock Stardrive Conical Head T15 Full - [id number] Implanted:Qty: 1 on 06/30/2019 by Jacobo Shoemaker MD at [facility] Right: Ankle Synthes I 212.102 / / Synthes 212.114 3.5mm 2.9mm 35mm Self Tap Lock Stardrive Conical Head T15 Full - [id number] Implanted:Qty: 1 on 06/30/2019 by Jacobo Shoemaker MD at [facility] Right: Ankle Synthes I 212.114 / / Synthes 223.641 Lcp Combi [id number] 14 Hole Limit Contact Taper End Plate Bone - [id number] Implanted:Qty: 1 on 06/30/2019 by Jacobo Shoemaker MD at [facility] Left: Tibia Synthes I 223.641 / / Synthes 204.824 3.5mm 6mm 24mm 2.5mm Self Tap Small Hexagonal Socket Low Profile - [id number] Implanted:Qty: 2 on 06/30/2019 by Jacobo Shoemaker MD at [facility] Left: Tibia Synthes I 204.824 / / Synthes 212.104 3.5mm 2.9mm 16mm Self Tap Lock Stardrive Conical Head T15 Full - [id number] Implanted:Qty: 2 on 06/30/2019 by Jacobo Shoemaker MD at [facility] Left: Tibia Synthes I 212.104 / / Explanted Type Area Home Appraiser Device Identifier Shelf Expiration Date Model / Serial / Lot Synthes 204.836 3.5mm 6mm 36mm 2.5mm Self Tap Small Hexagonal Socket Low Profile - [id number] Explanted:Qty: 1 on 06/30/2019 at [facility] Right: Ankle Synthes I 204.836 / / Synthes 212.117 3.5mm 2.9mm 40mm Self Tap Lock Stardrive Conical Head T15 Full - [id number] Explanted:Qty: 1 on 06/30/2019 at [facility] Right: Ankle Synthes I 212.117 / / Procedures Procedure Name Priority Date/Time Associated Diagnosis Comments CARDIOLOGY DOCUMENT SCAN Routine 08/08/2024 7:14 AM PACKING AND STAMPING MACHINE OPERATOR SCREENING MAMMOGRAM BILATERAL W WILLIE Schedule Routine, Read Routine (OP Routine) 02/18/2023 1:39 PM CDT Screening mammogram, encounter for HEPATITIS PANEL, ACUTE Routine 06/10/2019 10:11 AM PACKING AND STAMPING MACHINE OPERATOR from Last 3 Months or Most Recently Relevant to Health Maintenance Results * Cardiology Document Scan (08/08/2024 7:14 AM PACKING AND STAMPING MACHINE OPERATOR) Anatomical Region Laterality Modality Other Vianca David NP CV CARDIAC SERVICES PROCEDUR ES Final Result * Screening Mammogram Bilateral W Willie (02/18/2023 [...] age 42, based on guidelines of the [employer] (ACR Practice Parameter for the Performance of Screening and Diagnostic Mammography) and [employer]. For women [...] * Hepatitis panel, acute (06/10/2019 10:11 AM PACKING AND STAMPING MACHINE OPERATOR) HepBsAg NONREACT NONREACTIVE [facility] Comment: Siemens CentaurXP using SUSU (chemiluminescent immunoassay) technology. NONREACTIVE: IgM antibodies to Hepatitis B Surface antigen not detected. REACTIVE: IgM antibodies to Hepatitis B Surface antigen detected. Reactive results will be confirmed by neutralization testing. HBsAb qn <3.10 mIU/mL [facility] Comment: Siemens CentaurXP using SUSU (chemiluminescent immunoassay) technology. 9.99 IU/L or less.....NONREACTIVE: IgM antibodies to Hepatitis B Surface antibody are not detected. 10.00 IU/L or greater..REACTIVE: IgM antibodies to Hepatitis B Surface antibody are detected. Hep B core IgM NONREACT NONREACTIVE [facility] Comment: Siemens CentaurXP using SUSU (chemiluminescent immunoassay) technology. NONREACTIVE: IgM antibodies to Hepatitis B Core antigen not detected. EQUIVOCAL: IgM antibodies to Hepatitis B Core antigen may or may not be present. Obtain a ??new specimen and retest. REACTIVE: IgM antibodies to Hepatitis B Core antigen detected. Hep A IgM NONREACT NONREACTIVE [facility] Comment: Siemens CentaurXP using SUSU (chemiluminescent immunoassay) technology. NONREACTIVE: IgM antibodies to Hepatitis A not detected. This does not exclude possibility of exposure to Hepatitis A or early acute infection. EQUIVOCAL:IgM antibodies to Hepatitis A may or may not be present. Suggest recollection and retest. REACTIVE: Antibodies to Hepatitis A detected. Hep C Ab NONREACT NONREACTIVE [facility] Comment: Siemens CentaurXP using SUSU (chemiluminescent immunoassay) [...] real-time PCR method. 06/10/2019 10:1 1 AM PACKING AND STAMPING MACHINE OPERATOR 06/10/2019 10:47 AM PACKING AND STAMPING MACHINE OPERATOR Narrative Resulting Agency Comment IN Destiny Pereira MD LAB MICROBIOLOGY - GENERAL ORDERABLES Final Result [facility] [address] [place] [address], [facility] [phone] from Last 3 Months or Most Recently Relevant to Health Maintenance Insurance [facility] AETNA [facility] ADVANTRA [facility] [place] [employer] [facility] [employer]TRA [employer] [facility] IDPA MEDICARE Advance Directives For more information, please contact: [phone] Documents on File Type Date Recorded Patient [facility]regational [facility] Pastor Expl anation ADVANCE DIRECTIVE 07/14/2020 6:58 AM * Full Code (Latest Code Status on File) Date Activated Date Inactivated Comments 07/05/2020 4:11 PM 07/12/2020 7:15 PM * Full Code Date Activated Date Inactivated Comments 06/28/2019 11:55 PM 07/06/2019 8:59 PM Care Teams Recreation Teacher Relationship Specialty Start Date End Date Hernando Velasquez MD [address] [place] [address] PCP - General Internal Medicine 01/07/22 Jose Manuel Gruber MD Fellow Orthopedic Surgery 07/06/19
--- OUTSIDE RECORDS SUMMARY | 2024-08-17 19:44 | XMS_ITS | Referral Summary ---
Author Organization [facility] Healthcare Address [address] [place] [address] Care Team Providers Care Superintendent Plant Protection Name Role Phone Jose Manuel Gruber MD Unavailable Hernando Velasquez MD Primary Care Provider [phone] Encounters Date Type Department Care Team Description 08/16/2024 Orders Only [facility] Medical Group Cardiology [address] [place] [address] Vianca David NP from Last 3 Months Allergies Active Allergy Reactions Criticality Noted Date Comments Barbiturates Unknown,Other (See comments) Medium 09/13/2006 Diazepam Unknown,Other (See comments) Low 09/13/2006 Fish Containing Products Anaphylaxis High 07/05/2019 Iodine Unknown,Other (See comments) Low 09/13/2006 Latex Unknown 06/28/2019 Menthol Hives,Itching,Rash Medium 07/08/2022 [place]-3 Fatty Acids Unknown,Other (See comments) Low 12/12/2010 [...] by mouth daily 30 tablet 11 03/06/20 Active Nyamyc powder 03/01/20 20 Active enoxaparin (LOVENOX) 40 mg/0.4 mL syringe 03/29/20 Active LORazepam (ATIVAN) 0.5 mg tablet Take 0.5 mg by mouth every 8 (eight) hours as needed for anxiety 05/04/20 Active primidone (MYSOLINE) 50 mg tablet 05/05/20 Active ondansetron ODT (ZOFRAN-ODT) 8 mg disintegrating tablet Take 1 tablet (8 mg total) by mouth every 8 (eight) hours as needed for nausea or vomiting 20 tablet 07/12/20 Active ramelteon (ROZEREM) 8 mg tabletIndications: Sleep-Onset Insomnia Take 1 tablet (8 mg total) by mouth nightly 30 tablet 07/12/20 Active losartan (COZAAR) 100 mg tablet 07/28/19 [...] 04/15/2022 Assessment & Plan (07/08/2022 2:39 PM RN OUTPATIENT SURGERY): I did recommend that the patient decrease [...] 01/07/2022 Assessment & Plan (07/08/2022 2:39 PM RN OUTPATIENT SURGERY): The patient does have some cough with [...] 01/07/2022 Assessment & Plan (07/08/2022 2:39 PM RN OUTPATIENT SURGERY): She was intolerant of CPAP therapy and [...] 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 - She reports her only symptom [...] SNF. Assessment & Plan (07/07/2020 6:25 PM RN OUTPATIENT SURGERY): - Pt states she was actually tested [...] protocol Assessment & Plan (07/06/2020 11:59 AM RN OUTPATIENT SURGERY): - recommend getting records from SNF to establish exact date of first (+) COVID test. - pt likely has completed days of isolation. Assessment & Plan (07/06/2020 7:34 AM RN OUTPATIENT SURGERY): - Per report, pt was tested for [...] protocol Assessment & Plan (07/05/2020 5:40 PM RN OUTPATIENT SURGERY): - Per report, pt was tested for [...] 07/05/2020 Assessment & Plan (07/11/2020 6:57 AM RN OUTPATIENT SURGERY): History of open periprosthetic tibia/fibula fracture s/p [...] left lower extremity. - PM&R consulted. - Fork Lift Technician placed stump marine service operator / ampushield. Awaiting delivery of limb protector. - Patient not interested in prosthesis at this time. - PT/OT consults. - Plan for patient to return to her prior SNF when medically stable with ongoing PT/OT. - ID and Ortho following. Assessment & Plan (07/07/2020 6:27 PM RN OUTPATIENT SURGERY): - History of open periprosthetic tibia/fibula fracture [...] extremity Assessment & Plan (07/06/2020 3:07 PM RN OUTPATIENT SURGERY): - Cellulitis vs subcutaneous infection vs OM [...] recs. Assessment & Plan (07/05/2020 6:03 PM RN OUTPATIENT SURGERY): - Cellulitis vs subcutaneous infection vs OM [...] (07/08/2020): Added automatically from request for surgery [id number] Abnormal x-ray of extremity 07/20/2019 Acute exacerbation of chronic low back pain 06/26 Biliary colic 07/20/2019 Chronic lumbosacral pain 07/20/2019 Chronic respiratory failure 07/20/2019 Assessment & Plan (07/08/2020 4:27 PM RN OUTPATIENT SURGERY): - Per pt 2/2 COPD. No sings of acute exacerbation. - Continue home flonase - Continue home albuterol prn - On home is on 4L O2 at baseline Assessment & Plan (07/07/2020 6:26 PM RN OUTPATIENT SURGERY): - Per pt 2/2 COPD. No sings of acute exacerbation. - Continue home flonase - Continue home albuterol prn - On baseline 4L O2 Assessment & Plan (07/06/2020 7:33 AM RN OUTPATIENT SURGERY): - Per pt 2/2 COPD. No sings of acute exacerbation. - Continue home flonase - Continue home albuterol prn - On baseline 4L O2 Assessment & Plan (07/05/2020 6:00 PM RN OUTPATIENT SURGERY): - Per pt 2/2 COPD. No sings of acute exacerbation. - Continue home flonase - Continue home albuterol prn - On baseline 4L O2 Closed displaced bimalleolar fracture of right l ower leg 07/20/2019 Assessment & Plan (07/05/2020 6:01 PM RN OUTPATIENT SURGERY): - As elsewhere Deep venous insufficiency 07/20/2019 [...] with anxious distress 019 Intractable seizure disorder ([facility]) 9 Moderate essential hypertension 06/28/2019 Assessment & Plan (07/08/2020 4:26 PM RN OUTPATIENT SURGERY): - Follows with cardiology. - Continue home amlodipine, metoprolol, lasix, spironolactone. - Switched olmesartan to losartan as not on formulary. Assessment & Plan (07/07/2020 6:26 PM RN OUTPATIENT SURGERY): - Follows with cardiology - Continue home amlodipine, metoprolol, lasix, spironolactone - Switched olmesartan to losartan as not on formulary Assessment & Plan (07/06/2020 3:04 PM RN OUTPATIENT SURGERY): - Follows with cardiology - Continue home amlodipine, metoprolol, lasix, spironolactone - Switched olmesartan to losartan as not on formulary Assessment & Plan (07/05/2020 5:58 PM RN OUTPATIENT SURGERY): - Follows with cardiology - Continue home amlodipine, metoprolol, lasix, spironolactone - Switch olmesartan to losartan as not on formulary Syncope due to sick sinus syndrome (CMS/HCC) 10/2018 Open displaced comminuted fr acture of shaft of left tibia, type IIIA, IIIB, or IIIC 06/28/2019 Overview (06/28/2019): Added automatically from request for surgery [id number] Assessment & Plan (07/08/2020 4:27 PM RN OUTPATIENT SURGERY): - See above. Assessment & Plan (07/12/2020 8:13 AM RN OUTPATIENT SURGERY): 69 y.o. 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 After hours, the ID fellow station engineer can be reached at [phone]. Assessment & Plan (07/05/2020 5:59 PM RN OUTPATIENT SURGERY): - L tibia and R ankle fractures s/p BRENNA in 06/2020 - Complicated by poor healing and multiple infections of L anterior leg wound - Pt of Dr. Shoemaker Hyponatremia 11/23/2017 Assessment & Plan (07/11/2020 6:59 AM RN OUTPATIENT SURGERY): - Pt with history of hypoNa (per report, baseline mid 120- low 130s). - Na 126 on admission. No AMS. - TSH wnl. Cortisol 17. - Na stable. Assessment & Plan (07/07/2020 6:26 PM RN OUTPATIENT SURGERY): - Pt with history of hypoNa (per report, baseline mid 120- low 130s). - Na 126 on admission. No AMS. - TSH wnl. Cortisol 17. - Diuretics were held and Na improved to 132. Restart when able. Assessment & Plan (07/06/2020 7:31 AM RN OUTPATIENT SURGERY): - Pt with history of hypoNa (per [...] Comments Blood Pressure 153/76 07/08/2022 2:24 PM RN OUTPATIENT SURGERY Pulse 71 07/08/2022 2:24 PM RN OUTPATIENT SURGERY Temperature 36.5 ??C (97.7 ??F) 01/16/2022 5:20 PM CD T Respiratory Rate 18 07/08/2022 2:24 PM RN OUTPATIENT SURGERY Oxygen Saturation 96% 07/08/2022 2:24 PM RN OUTPATIENT SURGERY Inhaled Oxygen Concentration - - Weight 89.4 kg (197 lb) 01/16/2022 5:20 PM CDT Height 157.5 cm (5' 2 ) 04/15/2022 2:28 PM CDT Body Mass Index 36.03 01/07/2022 12:59 PM CDT Plan of Treatment Not on file Medical Devices Implanted Type Area Bundle Clerk Device Identifier Shelf Expiration Date Model / Serial / Lot Synthes 223.581 Lcp Combi [id number] 8 Hole Limit Contact Taper End Plate Bone - S0 - [id number] Implanted:Qty: 1 on 06/28/2019 by Lo Laura DO at [facility] Plate Left: Tibia Synthes I 223.581 / 0 / 0 Synthes 212.106 3.5mm 2.9mm 20mm Self Tap Lock Stardrive Conical Head T15 Full - S0 - [id number] Implanted:Qty: 1 on 06/28/2019 by Lo Laura DO at [facility] Screw Left: Tibia Synthes I 212.106 / 0 / 0 Synthes 212.108 3.5mm 2.9mm 24mm Self Tap Lock Stardrive Conical Head Pelvis T15 - S0 - [id number] Implanted:Qty: 1 on 06/28/2019 by Lo Laura DO at [facility] Screw Left: Tibia Synthes I 212.108 / 0 / 0 Synthes 212.109 3.5mm 2.9mm 26mm Self Tap Lock Stardrive Conical Head T15 Full - S0 - [id number] Implanted:Qty: 1 on 06/28/2019 by Lo Laura DO at [facility] Screw Left: Tibia Synthes I 212.109 / 0 / 0 Synthes 212.104 3.5mm 2.9mm 16mm Self Tap Lock Stardrive Conical Head T15 Full - S0 - [id number] Implanted:Qty: 2 on 06/28/2019 by Lo Laura DO at [facility] Screw Left: Tibia Synthes I 212.104 / 0 / 0 Synthes 212.107 3.5mm 2.9mm 22mm Self Tap Lock Stardrive Conical Head T15 Full - S0 - [id number] Implanted:Qty: 1 on 06/28/2019 by Lo Laura DO at [facility] Screw Left: Tibia Synthes I 212.107 / 0 / 0 Synthes 212.103 3.5mm 2.9mm 14mm Self Tap Lock Stardrive Conical Head T15 Full - [id number] Implanted:Qty: 2 on 06/30/2019 by Jacobo Shoemaker MD at [facility] Left: Tibia Synthes I 212.103 / / Synthes 212.109 3.5mm 2.9mm 26mm Self Tap Lock Stardrive Conical Head T15 Full - [id number] Implanted:Qty: 2 on 06/30/2019 by Jacobo Shoemaker MD at [facility] Left: Tibia Synthes I 212.109 / / Synthes 212.101 3.5mm 2.9mm 10mm Self Tap Lock Stardrive Conical Head T15 Full - [id number] Implanted:Qty: 1 on 06/30/2019 by Jacobo Shoemaker MD at [facility] Left: Tibia Synthes I 212.101 / / Synthes 212.107 3.5mm 2.9mm 22mm Self Tap Lock Stardrive Conical Head T15 Full - [id number] Implanted:Qty: 1 on 06/30/2019 by Jacobo Shoemaker MD at [facility] Left: Tibia Synthes I 212.107 / / Synthes 204.840 3.5mm 6mm 40mm 2.5mm Self Tap Small Hexagonal Socket Low Profile - [id number] Implanted:Qty: 1 on 06/30/2019 by Jacobo Shoemaker MD at [facility] Left: Tibia Synthes I 204.840 / / Synthes 204.832 3.5mm 6mm 32mm 2.5mm Self Tap Small Hexagonal Socket Low Profile - [id number] Implanted:Qty: 1 on 06/30/2019 by Jacobo Shoemaker MD at [facility] Left: Tibia Synthes I 204.832 / / Synthes 241.351 Lcp 12mm [id number] .7mm 5 Hole Collar 1/3 Tubular Plate Bone - [id number] Implanted:Qty: 1 on 06/30/2019 by Jacobo Shoemaker MD at [facility] Left: Tibia Synthes I 241.351 / / Synthes 241.351 Lcp 12mm [id number] .7mm 5 Hole Collar 1/3 Tubular Plate Bone - [id number] Implanted:Qty: 1 on 06/30/2019 by Jacobo Shoemaker MD at [facility] Right: Ankle Synthes I 241.351 / / Synthes 204.826 3.5mm 6mm 26mm 2.5mm Self Tap Small Hexagonal Socket Low Profile - [id number] Implanted:Qty: 1 on 06/30/2019 by Jacobo Shoemaker MD at [facility] Right: Ankle Synthes I 204.826 / / Synthes 212.102 3.5mm 2.9mm 12mm Self Tap Lock Stardrive Conical Head T15 Full - [id number] Implanted:Qty: 1 on 06/30/2019 by Jacobo Shoemaker MD at [facility] Right: Ankle Synthes I 212.102 / / Synthes 212.114 3.5mm 2.9mm 35mm Self Tap Lock Stardrive Conical Head T15 Full - [id number] Implanted:Qty: 1 on 06/30/2019 by Jacobo Shoemaker MD at [facility] Right: Ankle Synthes I 212.114 / / Synthes 223.641 Lcp Combi [id number] 14 Hole Limit Contact Taper End Plate Bone - [id number] Implanted:Qty: 1 on 06/30/2019 by Jacobo Shoemaker MD at [facility] Left: Tibia Synthes I 223.641 / / Synthes 204.824 3.5mm 6mm 24mm 2.5mm Self Tap Small Hexagonal Socket Low Profile - [id number] Implanted:Qty: 2 on 06/30/2019 by Jacobo Shoemaker MD at [facility] Left: Tibia Synthes I 204.824 / / Synthes 212.104 3.5mm 2.9mm 16mm Self Tap Lock Stardrive Conical Head T15 Full - [id number] Implanted:Qty: 2 on 06/30/2019 by Jacobo Shoemaker MD at [facility] Left: Tibia Synthes I 212.104 / / Explanted Type Area Bundle Clerk Device Identifier Shelf Expiration Date Model / Serial / Lot Synthes 204.836 3.5mm 6mm 36mm 2.5mm Self Tap Small Hexagonal Socket Low Profile - [id number] Explanted:Qty: 1 on 06/30/2019 at [facility] Right: Ankle Synthes I 204.836 / / Synthes 212.117 3.5mm 2.9mm 40mm Self Tap Lock Stardrive Conical Head T15 Full - [id number] Explanted:Qty: 1 on 06/30/2019 at [facility] Right: Ankle Synthes I 212.117 / / Procedures Procedure Name Priority Date/Time Associated Diagnosis Comments CARDIOLOGY DOCUMENT SCAN Routine 08/08/2024 7:14 AM RN OUTPATIENT SURGERY SCREENING MAMMOGRAM BILATERAL W WILLIE Schedule Routine, Read Routine (OP Routine) 02/18/2023 1:39 PM CDT Screening mammogram, encounter for HEPATITIS PANEL, ACUTE Routine 06/10/2019 10:11 AM RN OUTPATIENT SURGERY from Last 3 Months or Most Recently Relevant to Health Maintenance Results * Cardiology Document Scan (08/08/2024 7:14 AM RN OUTPATIENT SURGERY) Anatomical Region Laterality Modality Other Vianca David [...] age 42, based on guidelines of the [employer] (ACR Practice Parameter for the Performance of Screening and Diagnostic Mammography) and [employer]. For women [...] * Hepatitis panel, acute (06/10/2019 10:11 AM RN OUTPATIENT SURGERY) HepBsAg NONREACT NONREACTIVE [facility] Comment: Siemens CentaurXP using SUSU (chemiluminescent immunoassay) technology. NONREACTIVE: IgM antibodies to Hepatitis B Surface antigen not detected. REACTIVE: IgM antibodies to Hepatitis B Surface antigen detected. Reactive results will be confirmed by neutralization testing. HBsAb qn <3.10 mIU/mL [facility] Comment: Siemens CentaurXP using SUSU (chemiluminescent immunoassay) technology. 9.99 IU/L or less.....NONREACTIVE: IgM antibodies to Hepatitis B Surface antibody are not detected. 10.00 IU/L or greater..REACTIVE: IgM antibodies to Hepatitis B Surface antibody are detected. Hep B core IgM NONREACT NONREACTIVE [facility] Comment: Siemens CentaurXP using SUSU (chemiluminescent immunoassay) technology. NONREACTIVE: IgM antibodies to Hepatitis B Core antigen not detected. EQUIVOCAL: IgM antibodies to Hepatitis B Core antigen may or may not be present. Obtain a ??new specimen and retest. REACTIVE: IgM antibodies to Hepatitis B Core antigen detected. Hep A IgM NONREACT NONREACTIVE [facility] Comment: Siemens CentaurXP using SUSU (chemiluminescent immunoassay) technology. NONREACTIVE: IgM antibodies to Hepatitis A not detected. This does not exclude possibility of exposure to Hepatitis A or early acute infection. EQUIVOCAL:IgM antibodies to Hepatitis A may or may not be present. Suggest recollection and retest. REACTIVE: Antibodies to Hepatitis A detected. Hep C Ab NONREACT NONREACTIVE [facility] Comment: Siemens CentaurXP using SUSU (chemiluminescent [...] real-time PCR method. 06/10/2019 10:1 1 AM RN OUTPATIENT SURGERY 06/10/2019 10:47 AM RN OUTPATIENT SURGERY Narrative Resulting Agency Comment IN Destiny Pereira MD LAB MICROBIOLOGY - GENERAL ORDERABLES Final Result [facility] [address] [place] [address], [facility] [phone] from Last 3 Months or Most Recently Relevant to Health Maintenance Insurance [facility] AETNA MCR [facility]TRA [facility] ADVANTRA [facility] ADVANTRA [facility] IDPA MEDICARE Advance Directives For more information, please contact: [phone] Documents on File Type Date Recorded Patient Attorney General Expl anation ADVANCE DIRECTIVE 07/14/2020 6:58 AM * Full Code (Latest Code Status on File) Date Activated Date Inactivated Comments 07/05/2020 4:11 PM 07/12/2020 7:15 PM * Full Code Date Activated Date Inactivated Comments 06/28/2019 11:55 PM 07/06/2019 8:59 PM Care Teams Superintendent Plant Protection Relationship Specialty Start Date End Date Hernando Velasquez MD [address] [place] [address] PCP - General Internal Medicine 01/07/22 Jose Manuel Gruber MD Fellow Orthopedic Surgery 07/06/19
--- OUTSIDE RECORDS SUMMARY | 2024-08-17 19:44 | XMS_ITS | Encounter Summary ---
Author Organization [facility] Facility Care Team Providers Care Portable Grinding Machine Operator Name Role Phone Hernando Velasquez MD Primary Care Provider [phone] Jose Manuel Gruber MD Unavailable [phone] Bernardo Edwards MD Primary Care Provider [phone] Hernando Velasquez MD Primary Care Provider [phone] Bernardo Edwards MD Primary Care Provider [phone] Bernardo Edwards MD Primary Care Provider [phone] Hernando Velasquez MD Primary Care Provider [phone] Encounter Details Date Type Department Care Team (Latest Contact Info) Description 07/12/2016 Orders Only [facility] CLINCONV ProviderLucille MD [address] [place] [id number] Social History Tobacco Use Types Packs/Day [...] Comments SCAN - LABS 07/23/2016 12:00 AM AEROSPACE PROJECT ENGINEER documented in this encounter Results * SCAN - LABS (07/23/2016 12:00 AM AEROSPACE PROJECT ENGINEER) Narrative 07/23/2016 12:00 AM AEROSPACE PROJECT ENGINEER Ordered by an unspecified provider. us Historical [...] documented as of this encounter Care Teams Portable Grinding Machine Operator Relationship Specialty Start Date End Date Hernando Velasquez MD [address] [place] [address] PCP - General 12/23/18 06/13/19 Bernardo Edwards MD [address] [place] [address] PCP - General 07/05/20 07/06/20 Hernando Velasquez MD [address] [place] [address] PCP - General 07/07/20 07/07/20 Bernardo Edwards MD [address] [place] [address] PCP - General 07/08/20 01/06/22 Bernardo Edwards MD [address] [place] [address] PCP - General 06/14/19 07/04/20 Hernando Velasquez MD [address] [place] [address] PCP - General Internal Medicine 01/07/22 Jose Manuel Gruber MD [address] [place] [address] Fellow Orthopedic Surgery 07/06/19 documented as of this encounter
== END 2024-08-14 18:00 | DRG 193 ==
LOC: ANHED 07:52 → ANHIMU 15:58 → ANH2MED 08-10 07:41 → ANHIMU 08-15 15:19
PROVIDERS: Emergency Medicine; Nurse Practitioner; Physician Assistant; Admitting Provider Internal Medicine; Emergency Provider Emergency Medicine; PCP Internal Medicine; Visit Provider General Practice
DX: J18.9 Pneumonia, unspecified organism (principal); G93.41 Metabolic encephalopathy; E87.1 Hypo-osmolality and hyponatremia; J96.11 Chronic respiratory failure with hypoxia; Z99.81 Dependence on supplemental oxygen; I10 Essential (primary) hypertension; Z79.899 Other long term (current) drug therapy; J45.909 Unspecified asthma, uncomplicated; G47.33 Obstructive sleep apnea (adult) (pediatric); D64.9 Anemia, unspecified; E78.5 Hyperlipidemia, unspecified; F41.9 Anxiety disorder, unspecified; F31.9 Bipolar disorder, unspecified; G89.4 Chronic pain syndrome; I48.0 Paroxysmal atrial fibrillation; T48.6X5A Adverse effect of antiasthmatics, initial encounter; I48.91 Unspecified atrial fibrillation; G40.909 Epilepsy, unspecified, not intractable, without status epilepticus; R41.89 Other symptoms and signs involving cognitive functions and awareness; Z20.822 Contact with and (suspected) exposure to COVID-19; Z89.612 Acquired absence of left leg above knee; Z96.611 Presence of right artificial shoulder joint; Z90.49 Acquired absence of other specified parts of digestive tract; Z96.652 Presence of left artificial knee joint; Z90.710 Acquired absence of both cervix and uterus; R82.71 Bacteriuria; R82.81 Pyuria
CPT/HCPCS: 36415; 36600; 70450; 71045; 74176; 80048; 80053; 80061; 81001; 82375; 82607; 82805; 83050; 83605; 83735; 84132; 84443; 85018; 85025; 85027; 85610; 85730; 86738; 87040; 87086; 87449; 87637; 87641; 87651; 87899; 93005; 93306; 94640; 96365; 96367; 96375; 96376; 99285; A9270; J0456; J0696; J1200; J1650; J2270; J7030

== ENCOUNTER 2024-09-07 15:38 | Inpatient (IN) | payer MEDICARE, MEDICAID, SELFPAY ==
--- NOTE | ~2024-09-07 | XR_ITS ---
EXAMINATION: XR chest 1V portable DATE: 09/07/2024 16:09 INDICATION: Weakness TECHNIQUE: frontal view of the chest was obtained. COMPARISON: Chest radiograph dated 08/06/2024 FINDINGS: Patient is rotated slightly towards the left. Airspace opacities in the left hilar and infrahilar reg ions which could represent atelectasis or pneumonia. Remainder the lungs are clear. No pulmonary alesha a, pleural effusion or pneumothorax. Heart size is normal. Atherosclerotic aorta. IMPRESSION: 1. Opacities in the left perihilar and infrahilar region which could represent atelectasis or pneumon ia. Reviewed, dictated and finalized at location A. OR ROOM WORKER IMPRESSION: 1. Opacities in the left perihilar and infrahilar region which could represent atelectasis or pneumonia.
--- NOTE | ~2024-09-07 | XR_ITS ---
CHEST RADIOGRAPH CLINICAL HISTORY: pneumonia . COMPARISON: 09/07/2024 TECHNIQUE: Single portable view of the chest. FINDINGS The cardiomediastinal silhouette is unremarkable. Improved aeration of the bilateral lung quezada compared with most recent studies. No focal infiltrate is appreciated. Coarse interstitial lung markings are redemonstrated, likely chronic. IMPRESSION: Chronic interstitial change, without focal infiltrate or effusion. Reviewed, dictated and finalized at location A. COURSE ARCHITECT
[2024-09-07 15:37] VITALS: BP 174/65; PULSE 60; RESP 10; O2SAT 97
[2024-09-07 15:48] LABS: Glucose Point of Care 107 mg/dl (65-105)
--- NOTE | 2024-09-07 15:56 | ECG_ITS ---
Test Date: 2024-09-07 16:00:17 Measurements Intervals [place] Rate: 59 P: 48 LA: 224 QRS: -24 QRSD: 114 T: 67 QT: 482 QTc: 479 Interpretive Statements SINUS BRADYCARDIA WITH FIRST DEGREE AV BLOCK INTRAVENTRICULAR CONDUCTION DELAY LEFT VENTRICULAR HYPERTROPHY AND ST-T CHANGE MINIMAL Q WAVES- HIGH LATERAL LEADS BASELINE ARTIFACT- I, II, III, AVR, AVL, AVF, V1-V6 BORDERLINE ECG Compared to ECG 08/08/2024 08:39:37 Atrial fibrillation no longer present Possible ischemia no longer present Electronically Signed On 09-07-2024 16:02:24 POT ROOM SUPERVISOR by Blaaji Gomez D.O.
--- NOTE | 2024-09-07 16:00 | ED_ITS ---
HPI - Weakness General Chief complaint: Weakness Stated complaint: AMS Time Seen by Provider: 09/07/24 15:49 History of Present Illness HPI Narrative: Patient is a 73-year-old female who presents ER with reports of weakness and possible altered mental status. Worsening over last couple days. Was receiving subcutaneous fluids at the facility when EMS arrived. She is awake alert orient x3 though she is fatigued. She reports urinary incontinence but no dysuria. Denies any cough or cold. Reports she has recently moved away from the [facility] the section of the nursing facility. Related Data Home Medications ?Medication ?Instructions ?Recorded ?Confirmed ?Last Taken ?Type atorvastatin 10 mg tablet 10 mg PO HS 09/09/19 08/06/24 Unknown History cholecalciferol (vitamin D3) 10 5,000 unit PO DAILY 09/09/19 08/06/24 Unknown History mcg (400 unit) tablet famciclovir 250 mg tablet 250 mg PO Q12H 09/09/19 08/06/24 Unknown History fluticasone propionate 50 2 spray intranasal DAILY 09/09/19 08/06/24 Unknown History mcg/actuation nasal spray,suspension pantoprazole 40 mg tablet,delayed 40 mg PO DAILY 09/09/19 08/06/24 Unknown History release primidone 50 mg tablet 200 mg PO BID 09/09/19 08/06/24 Unknown History vitamin E 268 mg (400 unit) capsule 800 unit PO DAILY 09/09/19 08/06/24 Unknown History docusate sodium 100 mg tablet 100 mg PO DAILY PRN Constipation 05/31/20 08/06/24 Unknown History spironolactone 25 mg tablet 25 mg PO DAILY 05/31/20 08/06/24 Unknown History baclofen 10 mg tablet 10 mg PO TID 02/19/21 08/06/24 Unknown History losartan 100 mg tablet 100 mg PO DAILY 02/19/21 08/06/24 Unknown History albuterol sulfate 90 mcg/actuation 1 inh inhalation DAILY PRN 04/23/24 08/06/24 Unknown History aerosol inhaler sob/wheezing amlodipine 10 mg tablet 10 mg PO DAILY 04/23/24 08/06/24 Unknown History bisacodyl 5 mg tablet,delayed 10 mg PO HS PRN Constipation 04/23/24 08/06/24 Unknown History release (Dulcolax (bisacodyl)) budesonide-formoterol HFA 160 2 puff inhalation BID 04/23/24 08/06/24 Unknown History mcg-4.5 mcg/actuation aerosol inhaler guaifenesin 1,200 mg tablet, 1,200 mg PO BID 04/23/24 08/06/24 Unknown History extended release 12 hr (Mucinex) memantine 5 mg tablet 5 mg PO BID 04/23/24 08/06/24 Unknown History metoprolol tartrate 100 mg tablet 100 mg PO BID 04/23/24 08/06/24 Unknown History nystatin 100,000 unit/gram topical 1 applic topical BID PRN irritation 04/23/24 08/06/24 Unknown History cream ondansetron HCl 4 mg tablet 4 mg PO TID 04/23/24 08/06/24 Unknown History polyethylene glycol 3350 17 17 g PO DAILY PRN Constipation 04/23/24 08/06/24 Unknown History gram/dose oral powder (Miralax) sodium chloride 0.65 % nasal spray 2 spray intranasal PRN PRN 04/23/24 08/06/24 Unknown History aerosol Congestion vitamin B complex 1 tablet PO DAILY 04/23/24 08/06/24 Unknown History diclofenac sodium 1 % topical gel 2 g topical BID PRN moderate pain 08/06/24 08/06/24 Unknown History (Voltaren Arthritis Pain) (scale score 5-6) isosorbide mononitrate 30 mg 30 mg PO DAILY 08/06/24 08/06/24 Unknown History tablet,extended release 24 hr lidocaine 5 % topical patch 2 patch topical DAILY 08/06/24 08/06/24 Unknown History (Lidoderm) magnesium hydroxide 400 mg/5 mL 30 ml PO DAILY PRN constipation 08/06/24 08/06/24 Unknown History oral suspension (Gentle Laxative (magnesium hydroxide)) Allergies Allergy/AdvReac Type Severity Reaction Status Date / Time Fish Containing Products Allergy Severe Dyspnea / Verified 04/23/24 19:11 SOB Iodinated Contrast Media Allergy Intermediate HIVES, RED Verified 04/27/24 08:14 FACE iodine Allergy Unknown Unknown Verified 04/23/24 19:11 Barbiturates Allergy Unknown Verified 04/23/24 19:11 bupivacaine Allergy Unknown Verified 04/23/24 20:51 diazepam (From Valium) Allergy Unknown Verified 04/23/24 19:11 latex Allergy Unknown Verified 04/23/24 19:11 menthol Allergy Unknown Verified 04/23/24 20:51 Sulfa (Sulfonamide Allergy Unknown Verified 04/23/24 19:11 Antibiotics) thiopental (From Pentothal) Allergy Unknown Verified 04/27/24 08:14 wool Allergy Unknown Verified 04/23/24 20:51 Review of Systems 2 Review of Systems: All systems reviewed & are unremarkable except as noted in HPI and below Constitutional: Constitutional: Reports fatigue, Denies fever(s) and Reports weakness ENT: Reports system reviewed and no additional complaints, except as documented Cardiovascular: Cardiovascular: Reports no additional cardiovascular complaints Respiratory: Respiratory: Reports no additional respiratory complaints Gastrointestinal: Gastrointestinal: Reports no additional gastrointestinal complaints [facility] Past Medical History Medical History Kidney stone Chronic anemia Chronic respiratory failure with hypoxia, on home oxygen therapy Bipolar disorder Gastroesophageal reflux disease Hyperlipidemia Hypertension Obstructive sleep apnea intolerant to CPAP Left tibial fracture Chronic hyponatremia Shingles Anxiety Depression Gastroparesis Diverticulitis Asthma Epilepsy no longer on medication Seasonal allergies Surgical History Surgical History History of left above knee amputation History of right shoulder replacement History of cholecystectomy History of left knee replacement History of hysterectomy History of open reduction and internal fixation (ORIF) procedure Left tibia and right ankle. History of appendectomy History of tonsillectomy Family History Family History Mother Suicide Depression Heart disease Hypertension Heart failure Sibling Suicide Father Diabetes mellitus Emphysema lung Social History Social History Social History: Surrogate medical decision maker: Martina Rodney, daughter. Code status: Full code. Smoking status: Never smoker Second hand tobacco smoke exposure: No Alcohol intake: never Substance use: never Do You Feel Safe in your Home?: Yes Lack of Transportation: No Lack of Food: Never True Current Housing: I Have Housing Concerned About Future Housing: No Difficulty Paying Gas/Electric Bills: No Difficulty Paying for Meds: No Currently Unemployed: No Education: High School Diploma/GED Difficulty w/ Childcare or Family Care: No Living arrangements: [facility] [place] Occupation/Education: retired Spiritual care concerns: No Agree to blood products: No Exam 2 Narrative: GENERAL: Fatigued-appearing, well-nourished, and in no acute distress. HEAD: Normocephalic, atraumatic. EYES: PERRL and EOMI. ENT: Mucous membranes moist. CHEST: Clear to auscultation. No respiratory distress. HEART: Regular rate and rhythm. Normal peripheral pulses. ABDOMEN: Soft, nontender, nondistended. EXTREMITIES: Normal range of motion. No edema. Left AKA. SKIN: Warm, dry, no rash. NEURO: Alert and oriented x3. PSYCH: Normal mood and affect. Course Course Emergency Course: Significantly low sodium. Patient received 1 L IV fluid and will have her sodium rechecked. She we will start her on a sodium chloride IV infusion and admit to the hospitalist service. Vital Signs Vital signs: Vital Signs Pulse Rate 60 09/07/24 15:37 Respiratory Rate 10 L 09/07/24 15:37 Blood Pressure 174/65 H 09/07/24 15:37 Pulse Oximetry 97 09/07/24 15:37 Oxygen Delivery Room Air 09/07/24 15:37 Pulse Rate 60 09/07/24 15:37 Respiratory Rate 10 L 09/07/24 15:37 Blood Pressure 174/65 H 09/07/24 15:37 Pulse Oximetry 97 09/07/24 15:37 Oxygen Delivery Room Air 09/07/24 15:37 MDM - Weakness Lab Data 09/07/24 16:12 09/07/24 19:20 Labs: Lab Results 09/07/24 09/07/24 09/07/24 Range/Units 15:45 16:12 16:30 WBC 6.1 (4.5-10.0) K/mm3 RBC 4.31 (4.2-5.4) M/mm3 Hgb 13.2 (12.0-15.0) g/dL Hct 37.0 (37.0-47.0) % MCV 85.8 (80-100) fl MCH 30.6 (26-34) pg MCHC 35.7 (32-36) g/dl RDW 13.1 (11.5-14.5) % Plt Count 98 L D (150-375) k/mm3 MPV 11.6 H (7.4-10.4) fl Immature Gran % (Auto) 0.5 (0-0.5) % Neut % (Auto) 67.6 (45.5-73.1) % Lymph % (Auto) 22.9 (18.3-44.2) % Pepin % (Auto) 6.5 (2.6-8.5) % Eos % (Auto) 2.3 (0-4.4) % Baso % (Auto) 0.2 (0.2-1.2) % Lymph # (Auto) 1.40 (0.9-3.2) K/mm3 Pepin # (Auto) 0.4 (0.1-0.6) K/mm3 Eos # (Auto) 0.1 (0-0.3) K/mm3 Baso # (Auto) 0.0 (0.0-0.1) K/mm3 Abs Immat Gran (auto) 0.03 (0.00-0.031) K/mm3 Absolute Neuts (auto) 4.1 (1.3-6.7) K/mm3 Absolute Nucleated RBC 0.000 (0.0-0.012) K/mm3 Nucleated RBC % 0.0 (0.0-0.2) % Platelet Estimate Decreased (Adequate) % Immature Plt Fraction 10.6 (0.9-11.2) % Schistocytes None seen Sodium (137-145) mmol/L Potassium (3.4-5.0) mmol/L Chloride (98-107) mmol/L Carbon Dioxide (22-30) mmol/L Anion Gap (4-12) mmol/L BUN (7-17) mg/dL Creatinine (0.7-1.0) mg/dL Estim Creat Clear Calc ml/min Estimated GFR (59 - ) Glucose (65-110) mg/dL POC Capillary Glucose 107 H (65-105) mg/dl Calcium (8.4-10.2) mg/dL Total Bilirubin (0.2-1.3) mg/dL AST (14-36) U/L ALT (6-35) U/L Alkaline Phosphatase (38-126) U/L Total Protein (6.3-8.2) g/dL Albumin (3.5-5.1) g/dL Urine Color Yellow (Yellow) Urine Appearance Clear (Clear) Urine pH 6.5 (5.0-9.0) Ur Specific [place] 1.006 (1.001-1.035) Urine Protein Negative (Negative) mg/dL Urine Glucose (UA) Negative (Negative) mg/dL Urine Ketones Negative (Negative) mg/dL Ur Blood (Man) Negative (Negative) Urine Nitrate Negative (Negative) Urine Bilirubin Negative (Negative) Urine Urobilinogen 0.2 (<2.0) mg/dL Leukocyte Esterase Rfl Negative (Negative) LEEANNE/UL Influenza A (RT-PCR) Negative (Negative) Influenza B (RT-PCR) Negative (Negative) SARS-CoV-2 RNA (RT-PCR) Negative (Negative) 09/07/24 09/07/24 Range/Units 16:41 19:20 WBC (4.5-10.0) K/mm3 RBC (4.2-5.4) M/mm3 Hgb (12.0-15.0) g/dL Hct (37.0-47.0) % MCV (80-100) fl MCH (26-34) pg MCHC (32-36) g/dl RDW (11.5-14.5) % Plt Count (150-375) k/mm3 MPV (7.4-10.4) fl Immature Gran % (Auto) (0-0.5) % Neut % (Auto) (45.5-73.1) % Lymph % (Auto) (18.3-44.2) % Pepin % (Auto) (2.6-8.5) % Eos % (Auto) (0-4.4) % Baso % (Auto) (0.2-1.2) % Lymph # (Auto) (0.9-3.2) K/mm3 Pepin # (Auto) (0.1-0.6) K/mm3 Eos # (Auto) (0-0.3) K/mm3 Baso # (Auto) (0.0-0.1) K/mm3 Abs Immat Gran (auto) (0.00-0.031) K/mm3 Absolute Neuts (auto) (1.3-6.7) K/mm3 Absolute Nucleated RBC (0.0-0.012) K/mm3 Nucleated RBC % (0.0-0.2) % Platelet Estimate (Adequate) % Immature Plt Fraction (0.9-11.2) % Schistocytes Sodium 119 L* 120 L (137-145) mmol/L Potassium 3.2 L 3.3 L (3.4-5.0) mmol/L Chloride 77 L 79 L (98-107) mmol/L Carbon Dioxide 34 H 34 H (22-30) mmol/L Anion Gap 8 7 (4-12) mmol/L BUN 18 H D 17 (7-17) mg/dL Creatinine 0.69 L 0.64 L (0.7-1.0) mg/dL Estim Creat Clear Calc 65 70 ml/min Estimated GFR > 60 > 60 (59 - ) Glucose 101 96 (65-110) mg/dL POC Capillary Glucose (65-105) mg/dl Calcium 9.2 8.9 (8.4-10.2) mg/dL Total Bilirubin 0.4 (0.2-1.3) mg/dL AST 37 H (14-36) U/L ALT 35 (6-35) U/L Alkaline Phosphatase 108 (38-126) U/L Total Protein 7.0 (6.3-8.2) g/dL Albumin 4.2 (3.5-5.1) g/dL Urine Color (Yellow) Urine Appearance (Clear) Urine pH (5.0-9.0) Ur Specific [place] (1.001-1.035) Urine Protein (Negative) mg/dL Urine Glucose (UA) (Negative) mg/dL Urine Ketones (Negative) mg/dL Ur Blood (Man) (Negative) Urine Nitrate (Negative) Urine Bilirubin (Negative) Urine Urobilinogen (<2.0) mg/dL Leukocyte Esterase Rfl (Negative) LEEANNE/UL Influenza A (RT-PCR) (Negative) Influenza B (RT-PCR) (Negative) SARS-CoV-2 RNA (RT-PCR) (Negative) Imaging Data Radiologist's impression: ITS Impressions Chest X-Ray 09/07/24 16:14 IMPRESSION: 1. Opacities in the left perihilar and infrahilar region which could represent atelectasis or pneumonia. ECG Data EKG #1: ECG completion date: 09/07/24 ECG completion time: 16:00 EKG Interpretation: bradycardia (59), sinus rhythm, non-specific ST changes, normal QRS, normal QT and NL axis Critical Care Time Critical Care Time Critical Care Time: Yes Total Critical Care Time: 35 Discharge Plan Discharge Clinical Impression: Hyponatremia Patient Disposition: Still a Patient Condition: Stable Patient Language: [place] Prescriptions: No Action spironolactone 25 mg tablet 25 mg PO DAILY docusate sodium 100 mg Tablet 100 mg PO DAILY PRN (Reason: Constipation) baclofen 10 mg tablet 10 mg PO TID losartan 100 mg tablet 100 mg PO DAILY isosorbide mononitrate 30 mg tablet extended release 24 hr 30 mg PO DAILY lidocaine [Lidoderm] 5 % adhesive patch,medicated 2 patch topical DAILY Patient Comments: left shoulder Rx Instructions: leave on most painful area for up to 12 hrs magnesium hydroxide [Gentle Laxative (mag hydrox)] 400 mg/5 mL suspension 30 ml PO DAILY PRN (Reason: constipation) diclofenac sodium [Voltaren Arthritis Pain] 1 % gel 2 g topical BID PRN (Reason: moderate pain (scale score 5-6)) Patient Comments: right shoulder Rx Instructions: apply to single elbow, wrist or hand; for hand includes palm/fingers/back of hand hydralazine 10 mg Tablet 10 mg PO QID Qty: 30 0RF Artificial Tears([id number]) 1-0.2-0.2 % Drops 1 drp EACH EYE QID PRN (Reason: Dry Eye(S)) Qty: 30 0RF oxycodone 5 mg tablet 5 mg PO Q4-6H PRN (Reason: Pain) Qty: 7 0RF atorvastatin 10 mg Tablet 10 mg PO HS famciclovir 250 mg Tablet 250 mg PO Q12H cholecalciferol (vitamin D3) 10 mcg (400 unit) Tablet 5,000 unit PO DAILY primidone 50 mg Tablet 200 mg PO BID pantoprazole 40 mg Tablet,Delayed Release (Dr/Ec) 40 mg PO DAILY fluticasone propionate 50 mcg/actuation [place],Suspension 2 spray INTRANASAL DAILY vitamin E 400 unit Capsule 800 unit PO DAILY vitamin B complex Tablet Extended Release 1 tablet PO DAILY Rx Instructions: with biotin and folic acid metoprolol tartrate 100 mg Tablet 100 mg PO BID ondansetron HCl 4 mg tablet 4 mg PO TID amlodipine 10 mg tablet 10 mg PO DAILY nystatin 100,000 unit/gram cream 1 applic TOPICAL BID PRN (Reason: irritation) Rx Instructions: apply BID to affected areas unitl healed PRN bisacodyl [Dulcolax (bisacodyl)] 5 mg Tablet,Delayed Release (Dr/Ec) 10 mg PO HS PRN (Reason: Constipation) polyethylene glycol 3350 [Miralax] 17 gram/dose Powder 17 g PO DAILY PRN (Reason: Constipation) albuterol sulfate 90 mcg/actuation Hfa Aerosol Inhaler 1 inh INHALATION DAILY PRN (Reason: sob/wheezing) sodium chloride 0.65 % Aerosol,[place] 2 spray INTRANASAL PRN PRN (Reason: Congestion) memantine 5 mg tablet 5 mg PO BID budesonide-formoterol 160-4.5 mcg/actuation HFA aerosol inhaler 2 puff INHALATION BID guaifenesin [Mucinex] 1,200 mg Tablet Extended Release 12hr 1,200 mg PO BID sodium chloride 1,000 mg tablet,soluble 1,000 mg PO BID Qty: 60 0RF furosemide [Lasix] 20 mg tablet 10 mg PO BID Qty: 60 0RF lorazepam 0.5 mg tablet 1 mg PO Q6H PRN (Reason: Anxiety) Qty: 10 0RF pregabalin [Lyrica] 150 mg Capsule 150 mg PO BID Qty: 14 0RF Follow-up/Referrals: [place],Hernando Maldonado MD [Primary Care Provider] -
--- OUTSIDE RECORDS SUMMARY | 2024-09-07 16:00 | XMS_ITS | Referral Summary ---
Author Organization [facility] Healthcare Address [address] [place] [address] Care Team Providers Care Visual Basic Programmer Name Role Phone Jose Manuel Gruber MD Unavailable [phone] Hernadno Velasquez MD Primary Care Provider [phone] Encounters Date Type Department Care Team Description 08/16/[address] [facility] Cardiology [address] [place] [address] Vianca David NP from Last 3 Months Allergies Active Allergy Reactions Criticality Noted Date Comments Barbiturates Unknown,Other (See comments) Medium 09/13/2006 Diazepam Unknown,Other (See comments) Low 09/13/2006 Fish Containing Products Anaphylaxis High 07/05/2019 Iodine Unknown,Other (See comments) Low 09/13/2006 Latex Unknown 06/28/2019 Menthol Hives,Itching,Rash Medium 07/08/2022 [place]-3 Fatty Acids Unknown,Other (See comments) Low 12/12/2010 [...] 04/15/2022 Assessment & Plan (07/08/2022 2:39 PM FOUNTAIN SERVER): I did recommend that the patient decrease [...] 01/07/2022 Assessment & Plan (07/08/2022 2:39 PM FOUNTAIN SERVER): The patient does have some cough with [...] 01/07/2022 Assessment & Plan (07/08/2022 2:39 PM FOUNTAIN SERVER): She was intolerant of CPAP therapy and [...] left lower extremity ([facility]) 08/02/2020 COVID-19 07/05/2020 Assessment & Plan (07/11/2020 6:58 AM FOUNTAIN SERVER): - Patient tested positive for COVID-19 on 06/21/20 at her fci ([facility] in [place], [place]). - She reports her only symptom [...] SNF. Assessment & Plan (07/07/2020 6:25 PM FOUNTAIN SERVER): - Pt states she was actually tested [...] protocol Assessment & Plan (07/06/2020 11:59 AM FOUNTAIN SERVER): - recommend getting records from SNF to establish exact date of first (+) COVID test. - pt likely has completed days of isolation. Assessment & Plan (07/06/2020 7:34 AM FOUNTAIN SERVER): - Per report, pt was tested for [...] protocol Assessment & Plan (07/05/2020 5:40 PM FOUNTAIN SERVER): - Per report, pt was tested for [...] 07/05/2020 Assessment & Plan (07/11/2020 6:57 AM FOUNTAIN SERVER): History of open periprosthetic tibia/fibula fracture s/p [...] left lower extremity. - PM&R consulted. - Financial Systems Director placed stump cloth boil off machine operator / ampushield. Awaiting delivery of limb protector. - Patient not interested in prosthesis at this time. - PT/OT consults. - Plan for patient to return to her prior SNF when medically stable with ongoing PT/OT. - ID and Ortho following. Assessment & Plan (07/07/2020 6:27 PM FOUNTAIN SERVER): - History of open periprosthetic tibia/fibula fracture [...] extremity Assessment & Plan (07/06/2020 3:07 PM FOUNTAIN SERVER): - Cellulitis vs subcutaneous infection vs OM [...] recs. Assessment & Plan (07/05/2020 6:03 PM FOUNTAIN SERVER): - Cellulitis vs subcutaneous infection vs OM [...] (07/08/2020): Added automatically from request for surgery [id number] Abnormal x-ray of extremity 07/20/2019 Acute exacerbation of chronic low back pain 06/26 Biliary colic 07/20/2019 Chronic lumbosacral pain 07/20/2019 Chronic respiratory failure 07/20/2019 Assessment & Plan (07/08/2020 4:27 PM FOUNTAIN SERVER): - Per pt 2/2 COPD. No sings of acute exacerbation. - Continue home flonase - Continue home albuterol prn - On home is on 4L O2 at baseline Assessment & Plan (07/07/2020 6:26 PM FOUNTAIN SERVER): - Per pt 2/2 COPD. No sings of acute exacerbation. - Continue home flonase - Continue home albuterol prn - On baseline 4L O2 Assessment & Plan (07/06/2020 7:33 AM FOUNTAIN SERVER): - Per pt 2/2 COPD. No sings of acute exacerbation. - Continue home flonase - Continue home albuterol prn - On baseline 4L O2 Assessment & Plan (07/05/2020 6:00 PM FOUNTAIN SERVER): - Per pt 2/2 COPD. No sings of acute exacerbation. - Continue home flonase - Continue home albuterol prn - On baseline 4L O2 Closed displaced bimalleolar fracture of right l ower leg 07/20/2019 Assessment & Plan (07/05/2020 6:01 PM FOUNTAIN SERVER): - As elsewhere Deep venous insufficiency 07/20/2019 [...] Intractable seizure disorder ([facility]) 9 Moderate essential hypertension 06/28/2019 Assessment & Plan (07/08/2020 4:26 PM FOUNTAIN SERVER): - Follows with cardiology. - Continue home amlodipine, metoprolol, lasix, spironolactone. - Switched olmesartan to losartan as not on formulary. Assessment & Plan (07/07/2020 6:26 PM FOUNTAIN SERVER): - Follows with cardiology - Continue home amlodipine, metoprolol, lasix, spironolactone - Switched olmesartan to losartan as not on formulary Assessment & Plan (07/06/2020 3:04 PM FOUNTAIN SERVER): - Follows with cardiology - Continue home amlodipine, metoprolol, lasix, spironolactone - Switched olmesartan to losartan as not on formulary Assessment & Plan (07/05/2020 5:58 PM FOUNTAIN SERVER): - Follows with cardiology - Continue home amlodipine, metoprolol, lasix, spironolactone - Switch olmesartan to losartan as not on formulary Syncope due to sick sinus syndrome (CMS/HCC) 10/2018 Open displaced comminuted fr acture of shaft of left tibia, type IIIA, IIIB, or IIIC 06/28/2019 Overview (06/28/2019): Added automatically from request for surgery [id number] Assessment & Plan (07/08/2020 4:27 PM FOUNTAIN SERVER): - See above. Assessment & Plan (07/12/2020 8:13 AM FOUNTAIN SERVER): 69 y.o. 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 After hours, the ID fellow marketing and promotions manager can be reached at [phone]. Assessment & Plan (07/05/2020 5:59 PM FOUNTAIN SERVER): - L tibia and R ankle fractures s/p BRENNA in 06/2020 - Complicated by poor healing and multiple infections of L anterior leg wound - Pt of Dr. Shoemaker Hyponatremia 11/23/2017 Assessment & Plan (07/11/2020 6:59 AM FOUNTAIN SERVER): - Pt with history of hypoNa (per report, baseline mid 120- low 130s). - Na 126 on admission. No AMS. - TSH wnl. Cortisol 17. - Na stable. Assessment & Plan (07/07/2020 6:26 PM FOUNTAIN SERVER): - Pt with history of hypoNa (per report, baseline mid 120- low 130s). - Na 126 on admission. No AMS. - TSH wnl. Cortisol 17. - Diuretics were held and Na improved to 132. Restart when able. Assessment & Plan (07/06/2020 7:31 AM FOUNTAIN SERVER): - Pt with history of hypoNa (per [...] Comments Blood Pressure 153/76 07/08/2022 2:24 PM FOUNTAIN SERVER Pulse 71 07/08/2022 2:24 PM FOUNTAIN SERVER Temperature 36.5 C (97.7 F) 01/16/2022 5:20 PM CDT Respiratory Rate 18 07/08/2022 2:24 PM FOUNTAIN SERVER Oxygen Saturation 96% 07/08/2022 2:24 PM FOUNTAIN SERVER Inhaled Oxygen Concentration - - Weight 89.4 kg (197 lb) 01/16/2022 5:20 PM CDT Height 157.5 cm (5' 2 ) 04/15/2022 2:28 PM CDT Body Mass Index 36.03 01/07/2022 12:59 PM CDT Plan of Treatment Not on file Medical Devices Implanted Type Area Teacher Of The Hearing Impaired Device Identifier Shelf Expiration Date Model / Serial / Lot Synthes 223.581 Lcp Combi [id number] 8 Hole Limit Contact Taper End Plate Bone - S0 - [id number] Implanted:Qty: 1 on 06/28/2019 by Lo Laura DO at [facility] Plate Left: Tibia Synthes I 223.581 / 0 / 0 Synthes 212.106 3.5mm 2.9mm 20mm Self Tap Lock Stardrive Conical Head T15 Full - S0 - [id number] Implanted:Qty: 1 on 06/28/2019 by Lo Laura DO at [facility] Screw Left: Tibia Synthes I 212.106 / 0 / 0 Synthes 212.108 3.5mm 2.9mm 24mm Self Tap Lock Stardrive Conical Head Pelvis T15 - S0 - [id number] Implanted:Qty: 1 on 06/28/2019 by Lo Laura DO at [facility] Screw Left: Tibia Synthes I 212.108 / 0 / 0 Synthes 212.109 3.5mm 2.9mm 26mm Self Tap Lock Stardrive Conical Head T15 Full - S0 - [id number] Implanted:Qty: 1 on 06/28/2019 by Lo Laura DO at [facility] Screw Left: Tibia Synthes I 212.109 / 0 / 0 Synthes 212.104 3.5mm 2.9mm 16mm Self Tap Lock Stardrive Conical Head T15 Full - S0 - [id number] Implanted:Qty: 2 on 06/28/2019 by Lo Laura DO at [facility] Screw Left: Tibia Synthes I 212.104 / 0 / 0 Synthes 212.107 3.5mm 2.9mm 22mm Self Tap Lock Stardrive Conical Head T15 Full - S0 - [id number] Implanted:Qty: 1 on 06/28/2019 by Lo Laura DO at [facility] Screw Left: Tibia Synthes I 212.107 / 0 / 0 Synthes 212.103 3.5mm 2.9mm 14mm Self Tap Lock Stardrive Conical Head T15 Full - [id number] Implanted:Qty: 2 on 06/30/2019 by Jacobo Shoemaker MD at [facility] Left: Tibia Synthes I 212.103 / / Synthes 212.109 3.5mm 2.9mm 26mm Self Tap Lock Stardrive Conical Head T15 Full - [id number] Implanted:Qty: 2 on 06/30/2019 by Jacobo Shoemaker MD at [facility] Left: Tibia Synthes I 212.109 / / Synthes 212.101 3.5mm 2.9mm 10mm Self Tap Lock Stardrive Conical Head T15 Full - [id number] Implanted:Qty: 1 on 06/30/2019 by Jacobo Shoemaker MD at [facility] Left: Tibia Synthes I 212.101 / / Synthes 212.107 3.5mm 2.9mm 22mm Self Tap Lock Stardrive Conical Head T15 Full - [id number] Implanted:Qty: 1 on 06/30/2019 by Jacobo Shoemaker MD at [facility] Left: Tibia Synthes I 212.107 / / Synthes 204.840 3.5mm 6mm 40mm 2.5mm Self Tap Small Hexagonal Socket Low Profile - [id number] Implanted:Qty: 1 on 06/30/2019 by Jacobo Shoemaker MD at [facility] Left: Tibia Synthes I 204.840 / / Synthes 204.832 3.5mm 6mm 32mm 2.5mm Self Tap Small Hexagonal Socket Low Profile - [id number] Implanted:Qty: 1 on 06/30/2019 by Jacobo Shoemaker MD at [facility] Left: Tibia Synthes I 204.832 / / Synthes 241.351 Lcp 12mm [id number] .7mm 5 Hole Collar 1/3 Tubular Plate Bone - [id number] Implanted:Qty: 1 on 06/30/2019 by Jacobo Shoemaker MD at [facility] Left: Tibia Synthes I 241.351 / / Synthes 241.351 Lcp 12mm [id number] .7mm 5 Hole Collar 1/3 Tubular Plate Bone - [id number] Implanted:Qty: 1 on 06/30/2019 by Jacobo Shoemaker MD at [facility] Right: Ankle Synthes I 241.351 / / Synthes 204.826 3.5mm 6mm 26mm 2.5mm Self Tap Small Hexagonal Socket Low Profile - [id number] Implanted:Qty: 1 on 06/30/2019 by Jacobo Shoemaker MD at [facility] Right: Ankle Synthes I 204.826 / / Synthes 212.102 3.5mm 2.9mm 12mm Self Tap Lock Stardrive Conical Head T15 Full - [id number] Implanted:Qty: 1 on 06/30/2019 by Jacobo Shoemaker MD at [facility] Right: Ankle Synthes I 212.102 / / Synthes 212.114 3.5mm 2.9mm 35mm Self Tap Lock Stardrive Conical Head T15 Full - [id number] Implanted:Qty: 1 on 06/30/2019 by Jacobo Shoemaker MD at [facility] Right: Ankle Synthes I 212.114 / / Synthes 223.641 Lcp Combi [id number] 14 Hole Limit Contact Taper End Plate Bone - [id number] Implanted:Qty: 1 on 06/30/2019 by Jacobo Shoemaker MD at [facility] Left: Tibia Synthes I 223.641 / / Synthes 204.824 3.5mm 6mm 24mm 2.5mm Self Tap Small Hexagonal Socket Low Profile - [id number] Implanted:Qty: 2 on 06/30/2019 by Jacobo Shoemaker MD at [facility] Left: Tibia Synthes I 204.824 / / Synthes 212.104 3.5mm 2.9mm 16mm Self Tap Lock Stardrive Conical Head T15 Full - [id number] Implanted:Qty: 2 on 06/30/2019 by Jacobo Shoemaker MD at [facility] Left: Tibia Synthes I 212.104 / / Explanted Type Area Teacher Of The Hearing Impaired Device Identifier Shelf Expiration Date Model / Serial / Lot Synthes 204.836 3.5mm 6mm 36mm 2.5mm Self Tap Small Hexagonal Socket Low Profile - [id number] Explanted:Qty: 1 on 06/30/2019 at [facility] Right: Ankle Synthes I 204.836 / / Synthes 212.117 3.5mm 2.9mm 40mm Self Tap Lock Stardrive Conical Head T15 Full - [id number] Explanted:Qty: 1 on 06/30/2019 at [facility] Right: Ankle Synthes I 212.117 / / Procedures Procedure Name Priority Date/Time Associated Diagnosis Comments CARDIOLOGY DOCUMENT SCAN Routine 08/08/2024 7:14 AM FOUNTAIN SERVER SCREENING MAMMOGRAM BILATERAL W WILLIE Schedule Routine, Read Routine (OP Routine) 02/18/2023 1:39 PM CDT Screening mammogram, encounter for HEPATITIS PANEL, ACUTE Routine 06/10/2019 10:11 AM FOUNTAIN SERVER from Last 3 Months or Most Recently Relevant to Health Maintenance Results * Cardiology Document Scan (08/08/2024 7:14 AM FOUNTAIN SERVER) Anatomical Region Laterality Modality Other Vianca David NP CV CARDIAC SERVICES PROCEDUR ES Final Result * Screening Mammogram Bilateral W Willie (02/18/2023 1:39 PM CDT) Anatomical Region Laterality Modality Breast Bilateral Mammography Impressions 02/19/2023 1:25 PM CDT BI-RADS ATLAS category (overall): 2 - Benign There is no mammographic evidence of malignancy. A 1 year screening mammogram is recommended. The patient has been or will be contacted. We recommend annual screening mammography for women at average risk of breast cancer beginning at age 40, based on guidelines of the [place] [employer] (ACR Practice Parameter for the Performance of Screening and Diagnostic Mammography) and [employer]. For women [...] in the CC and MLO projections. CLINICAL: Screening mammogram, encounter for. No relevant medical history has been documented for this patient. No known family history of breast cancer. COMPARISONS: 01/31/2019 Breast Imaging Diagnostic Outside Reference 01/17/2019 Breast Imaging Screening Outside Reference BREAST TISSUE: The breasts have scattered areas of fibroglandular density. FINDINGS: There are unchanged benign microcalcifications in both breasts. There is no new suspicious finding in either breast on mammogram. us Self Screening Mammogram IMG MAMMO PROCEDURES Fi nal Result * Hepatitis panel, acute (06/10/2019 10:11 AM FOUNTAIN SERVER) HepBsAg NONREACT NONREACTIVE [facility] Comment: Siemens [employer] using SUSU (chemiluminescent immunoassay) technology. NONREACTIVE: IgM antibodies to Hepatitis B Surface antigen not detected. REACTIVE: IgM antibodies to Hepatitis B Surface antigen detected. Reactive results will be confirmed by neutralization testing. HBsAb qn <3.10 mIU/mL [facility] Comment: Siemens CentaurXP using SUSU (chemiluminescent immunoassay) technology. 9.99 IU/L or less.....NONREACTIVE: IgM antibodies to Hepatitis B Surface antibody are not detected. 10.00 IU/L or greater..REACTIVE: IgM antibodies to Hepatitis B Surface antibody are detected. Hep B core IgM NONREACT NONREACTIVE [facility] Comment: Siemens CentaurXP using SUSU (chemiluminescent immunoassay) technology. NONREACTIVE: IgM antibodies to Hepatitis B Core antigen not detected. EQUIVOCAL: IgM antibodies to Hepatitis B Core antigen may or may not be present. Obtain a new specimen and retest. REACTIVE: IgM antibodies to Hepatitis B Core antigen detected. Hep A IgM NONREACT NONREACTIVE [facility] Comment: Siemens CentaurXP using SUSU (chemiluminescent immunoassay) technology. NONREACTIVE: IgM antibodies to Hepatitis A not detected. This does not exclude possibility of exposure to Hepatitis A or early acute infection. EQUIVOCAL:IgM antibodies to Hepatitis A may or may not be present. Suggest recollection and retest. REACTIVE: Antibodies to Hepatitis A detected. Hep C Ab NONREACT NONREACTIVE [facility] Comment: Siemens CentaurXP using SUSU (chemiluminescent immunoassay) technology. NONREACTIVE: Antibodies to Hepatitis C not detected. This does not exclude early acute Hepatitis C infection, possibility of exposure to Hepatitis C, antibodies below detection limit, or to lack of antibody reactivity to the antigen used in this assay. EQUIVOCAL: Antibodies to Hepatitis C may or may not be present. Sample to be confirmed by real-time PCR method. REACTIVE: Antibodies to Hepatitis C detected.Sample to be confirmed by real-time PCR method. 06/10/2019 10:1 1 AM FOUNTAIN SERVER 06/10/2019 10:47 AM FOUNTAIN SERVER Narrative Resulting Agency Comment IN Destiny Pereira MD LAB MICROBIOLOGY - GENERAL ORDERABLES Final Result [facility] [address] [phone] from Last 3 Months or Most Recently Relevant to Health Maintenance Insurance [facility] [address] [place] [address] [facility] [place] ADVANT [facility] [employer] IDPA [facility] IDPA MEDICARE Advance Directives For more information, please contact: [phone] Documents on File Type Date Recorded Patient Senior Director Of Strategy Expl anation ADVANCE DIRECTIVE 07/14/2020 6:58 AM * Full Code (Latest Code Status on File) Date Activated Date Inactivated Comments 07/05/2020 4:11 PM 07/12/2020 7:15 PM * Full Code Date Activated Date Inactivated Comments 06/28/2019 11:55 PM 07/06/2019 8:59 PM Care Teams Visual Basic Programmer Relationship Specialty Start Date End Date Hernando Velasquez MD [address] [place] [address] PCP - General Internal Medicine 01/07/22 Jose Manuel Gruber MD Fellow Orthopedic Surgery 07/06/19
--- OUTSIDE RECORDS SUMMARY | 2024-09-07 16:00 | XMS_ITS | Continuity of Care Document ---
Author Organization [employer] [place] Address [address] [place] [address] Phone Care Team Providers Care Rug Sizer Name Role Phone Hernando Velasquez MD Unavailable Unavailable Allergies, Adverse Reactions, Alerts Substance Reaction Status Criticality fish oil Other Active No Information Sulfa (Sulfonamide Antibiotics) Other Active No Information Barbiturates Other Active No Information diazepam Other Active No Information iodine Other Active No Information Medications Medication Instructions Dosage Effective Dates (start - stop) Status Comments PRIMIDONE 50 MG TABLET TAKE 4 TABLETS BY MOUTH TWICE DAILY - Active FLUTICASONE PROP 50 MCG SPRAY SHAKE LIQUID AND USE 2 SPRAYS IN EACH NOSTRIL EVERY DAY - Active Advair HFA 230 mcg-21 mcg/actuation aerosol inhaler [...] for outbreaks - Active PA approved 07/26/23-07/25/24 cranberry 500 mg capsule Patient takes 30,000mg [...] tablet twice daily as needed - Active [place] Nasal 0.65 % spray aerosol 2 sprays [...] 400 UNIT CAPS 2 QD-daily - Active FLUTICASONE PROP 50 MCG SPRAY SHAKE LIQUID AND USE 2 SPRAYS IN EACH NOSTRIL EVERY DAY - No Longer Active PRIMIDONE 50 MG TABLET TAKE 4 TABLETS BY MOUTH TWICE DAILY - No Longer Active Procedures Procedure Date BASIC METABOLIC PANEL(BMP) Pt inelig neg scrn depres IMMUN ADMIN (INC PERCUTANEOUS) SINGLE, F IRST INJ TDAP INTRAMUSCULAR USE OFFICE [id number] SYST BP >= 140 MM HG6 IT DIAST BP 80-89 MM HG ROUTINE VENIPUNCTURE ND CBC, INC PLATELETS AND DIFFERENTIAL COMPREHEN METABOLIC [...] Preservative And A ntibiotic Free IM OFFICE [id number] SYST BP >= 140 MM HG6 IT DIAST BP < 80 MM HG ROUTINE VENIPUNCTURE IL CBC, INC PLATELETS AND DIFFERENTIAL COMPREHEN METABOLIC PANEL CMP LIPID PANEL Pt inelig neg scrn depres FALL RISK ASSESSMENT DOC'D PRES/ABSN URINE INCON ASSESS PREVENTATIVE-EST: 65 & OVER SYST BP >= 140 MM HG6 IT DIAST BP < 80 MM HG ROUTINE VENIPUNCTURE IL OFFICE [id number] SYST BP >= 140 MM HG6 IT DIAST BP 80-89 MM HG BASIC METABOLIC PANEL(BMP) ROUTINE VENIPUNCTURE BASIC METABOLIC PANEL(BMP) ROUTINE VENIPUNCTURE BASIC METABOLIC PANEL(BMP) ROUTINE VENIPUNCTURE IMMUN ADMIN (INC PERCUTANEOUS) SINGLE, F IRST INJ Flu Vac, quad (RIV4), Preservative And A ntibiotic Free IM OFFICE [id number] BODY MASS INDEX DOCD SYST BP >= 140 MM HG6 IT DIAST BP >= 90 MM HG BASIC METABOLIC PANEL(BMP) ROUTINE VENIPUNCTURE FORM CHARGE SYST BP >= 140 MM HG6 IT DIAST BP 80-89 MM HG OFFICE [id number] BODY MASS INDEX DOCD SYST BP >= 140 MM HG6 IT DIAST BP 80-89 MM HG PREVENTATIVE-EST: 65 & OVER BODY MASS INDEX DOCD SYST BP >= 140 MM HG6 IT DIAST BP 80-89 MM HG CBC, INC PLATELETS AND DIFFERENTIAL COMPREHEN METABOLIC PANEL [facility] 2 HEMOGLOBIN A1C HGA1C, GLYCO LIPID PANEL MICROALBUMIN, QN (URINE) CREATININE, (U-R) ROUTINE VENIPUNCTURE OFFICE [id number] CBC, INC PLATELETS AND DIFFERENTIAL COMPREHEN METABOLIC PANEL [facility] 1 HEMOGLOBIN A1C HGA1C, GLYCO ROUTINE VENIPUNCTURE OFFICE [id number] DSCHRG MED/CURRENT MED MERGE OFFICE [id number] BASIC METABOLIC PANEL(BMP) ROUTINE VENIPUNCTURE OFFICE EPZVM-VKX-[id number] BASIC METABOLIC PANEL(BMP) CREATININE, (U-R) URINALYSIS, DIPSTICK (UA) - Office Lab O ROUTINE VENIPUNCTURE BASIC METABOLIC PANEL(BMP) ROUTINE VENIPUNCTURE Admin influenza virus vac Flu Vac, quad (RIV4), Preservative And A ntibiotic Free IM BASIC METABOLIC PANEL(BMP) ROUTINE VENIPUNCTURE OFFICE [id number] BASIC METABOLIC PANEL(BMP) DRUG TEST (ANY NUMBER OF DRUG CLASSES) A ROUTINE VENIPUNCTURE Advance Directives Directive Yes / No Effective Date File Name No Information Encounters Encounter Description Practice Location Reason(s) For Visit Diagnoses Date Provider Providers Copied on Encounter [facility], [address], [place], [place], [address] , [place] tel: [phone] [facility] No Information 5 English Villagomez. [address] [place], [address], [place]. tel: [phone] [facility], [address], [place], [place], [address] , [place] tel: [phone] [facility] [place] No Information 4 Dejesus Kay. [address] [place], [address], [place]. tel: [phone] [facility], [address], [place], [place], [address] , [place] tel: [phone] [facility] [place] No Information 4 Dejesus Kay. [address] [place], [address], [place]. tel: [phone] [facility], [address], [place], [place], [address] , [place] tel: [phone] [facility] [place] No Information 4 Martiniquais Hernando. [address] [place], [address], [place]. tel: [phone] [facility], [address], [place], [place], [address] , [place] tel: [phone] [facility] [place] No Information 4 Martiniquais Hernando. [address] [place], [address], [place]. tel: [phone] [facility], [address], [place], [place], [address] , [place] tel: [phone] [facility] [place] No Information 4 Martiniquais Hernando. [address] [place], [address], [place]. tel: [phone] [facility], [address], [place], [place], [address] , [place] tel: [phone] [facility] [place] No Information 4 Martiniquais Hernando. [address] [place], [address], [place]. tel:[phone] [facility], [address], [place], [place], [address] , [place] tel:[phone] [facility] [place] No Information 4 Martiniquais Hernando. [address] [place], [address], [place]. tel:[phone] [facility], [address], [place], [place], [address] , [place] tel:[phone] [facility] [place] No Information 4 Dejesus Kay. [address] [place], [address], [place]. tel:[phone] [facility], [address], [place], [place], [address] , [place] tel: [phone] [facility] [place] No Information 4 Martiniquais Hernando. [address] [place], [address], [place]. tel:[phone] [facility], [address], [place], [place], [address] , [place] tel:[phone] [facility] [place] No Information 4 Martiniquais Hernando. [address] [place], [address], [place]. tel:[phone] [facility], [address], [place], [place], [address] , [place] tel:[phone] [facility] [place] No Information 4 Martiniquais Hernando. [address] [place], [address], [place]. tel:[phone] [facility], [address], [place], [place], [address] , [place] tel:[phone] [facility] [place] No Information 4 Dixon Dixon. [address] [place], [address], [place]. tel:[phone] [facility], [address], [place], [place], [address] , [place] tel:[phone] [facility] [place] No Information 4 Martiniquais Hernando. [address] [place], [address], [place]. tel:[phone] [facility], [address], [place], [place], [address] , [place] tel: [phone] [facility] No Information 4 Ben Martinin. [address] [facility], [address], [address], [place]. [phone] Referring Provider: Hernando Velasquez, [address] [place], [address] . tel:[phone] OFFICE FTTSZ-NLY-DH PANDED [facility], [address], [place], [place], [address] , [place] tel: [phone] [facility] hyponatremmia (chief complaint) Hyponatremia 4 English Villagomez. [address] [place], [place], [address], [place]. tel:[phone] Referring Provider: Hernando Velasquez, [address] [place], [address] . tel:[phone] [facility], [address], [place], [place], [address] , [place] tel: [phone] [facility] No Information 4 English Villagomez. [address] [place], [place], [address], [place]. tel:[phone] [facility], [address], [place], [place], [address] , [place] tel: [phone] [facility] No Information 4 English Villagomez. [address] [place], [address], [place]. tel:[phone] [facility], [address], [place], [place], [address] , [place] tel: [phone] [facility] Encounter for general adult medical examination without abnormal findingsEssen tial (primary) hypertensionH yperlipidemia , unspecified 4 Ben Martinin. [address] [facility], [address] [address], [place], [place], [address], [place]. tel:[phone] Referring Provider: Hernando Velasquez, [place], [address] . tel:[phone] PREVENTATIVE -EST: 65 & OVER [facility], [address], [place], [place], [address] , [place] tel:[phone] [facility] PX (chief complaint) Encounter for general adult medical examination without abnormal findingsEssen [facility] OPD with asthmaChronic GERDGAD (generalized anxiety disorder)Cere bral atrophyHistor y of above-knee amputation of left lower extremityEnco unter for screening for malignant neoplasm of colon Oct- 4 English Villagomez. [address] [place], [address], [place]. [phone] Referring Provider: [place], [address] . tel:[phone] [facility], [address], [place], [place], [address] , [place] tel: [phone] [facility] No Information 4 English Villagomez. [address] [place], [address], [place]. [phone] [facility] [place], [address], [place], [place], [address] , [place] tel: [phone] [facility] No Information 3 English Villagomez. [address] [place], [place], [address], [place]. [phone] [facility], [address], [place], [place], [address] , [place] tel: [phone] [facility] No Information 3 Ben Price. [address] [facility], [address] [address], [place], [place], [address], [place]. tel:[phone] Referring Provider: Hernando Velasquez [address] [place], [address] . tel:[phone] OFFICE MFWKH-IOM-OR TAILED [facility], [address], [place], [place], [address] , tel: [phone] [facility] chronic conditions (chief complaint) COPD with asthmaGAD (generalized anxiety disorder)[facility] ntial hypertensionC hronic GERD 3 English Villagomez. [address] [place], [address], [place]. tel:[phone] Referring Provider: [place], [address] . tel:[phone] [facility], [address], [place], [place], [address] , [place] tel: [phone] [facility] Vitamin D deficiency 3 English Villagomez. [address] [place] [address], [address], [place]. tel:[phone] [facility], [address], [place], [place], [address] , tel: [phone] [facility] No Information 3 Ben Price. [address] [facility], [address] [address], [place], [place], [address], [place]. tel:[phone] Referring Provider: [place], [address] . tel:[phone] PREVENTATIVE -EST: 65 & OVER [facility], [address], [place], [place], [address] , tel: [phone] [facility] px (chief complaint) History of above-knee amputation of left lower extremityChro kamryn hypoxemic respiratory failureEssent ial hypertensionC erebral atrophyChroni c GERDCOPD with asthmaEncount er for general adult medical examination without abnormal findingsEncou nter for screening mammogram for malignant neoplasm of breast 3 English Villagomez. [address] [place], [address], [place]. tel:[phone] Referring Provider: [place], [address] . tel:[phone] [employer] [facility], [address], [place], [place], [address] , [place] tel: [phone] [facility] [place] Herpesviral infection of urogenital system Sep- 3 Martiniquais Hernando. [address] [place], [address], [place]. tel:[phone] [facility] [place], [address], [place], [place], [address] , [place] tel: [phone] [facility] [place] No Information 3 Martiniquais Hernando. [address] [place], [place], [address], [place]. tel:[phone] [facility], [address], [place], [place], [address] , [place] tel: [phone] [facility] [place] Follow-up exam 3 English Villagomez. [address] [place], [address], [place]. tel:[phone] OFFICE DHEZN-EUI-CS PANDED [facility], [address], [place], [place], [address] , [place] tel: [phone] [place] Nocturnal leg cramps 2 Martiniquais Hernando. [address] [place], [address], [place]. tel:[phone] Referring Provider: [place], [address] . tel:[phone] [facility], [address], [place], [place], [address] , [place] tel: [phone] [place] Hyponatremia May- 2 English Villagomez. [address] [place], [address], [place]. tel:[phone] Referring Provider: [place], [address] . tel:[phone] [facility], [address], [place], [place], [address] , tel: [phone] [facility] Low sodium levels 2 Martiniquais Hernando. [address] [place], [address], [place]. tel:[phone] Referring Provider: [place], [address] . tel:[phone] [employer], [address], [place], [place], [address] , tel: [phone] [facility] Essential hypertension Apr- 2 Martiniquais Hernando. [address] [place], [address], [place]. tel:[phone] Referring Provider: [place], [address] . tel:[phone] OFFICE UJITC-FVX-QM [facility] [employer], [address], [place], [place], [address] , tel: [phone] [facility] Chronic Conditions (chief complaint) Body mass index [BMI] 36.0-36.9, adultEssentia l (primary) hypertensionM igraine, unspecified, not intractable, without status migrainosusMo rbid (severe) obesity due to excess caloriesAorti c atheroscleros is Mar- 2 Martiniquais Hernando. [address] [place], [address], [place]. tel:[phone] Referring Provider: [place], [address] . tel:[phone] [employer], [address], [place], [place], [address] , [place] tel: [phone] [facility] Cough, persistent Sep- 2 Martiniquais Hernando. [address] [place], [address], [place]. tel:[phone] [employer], [address], [place], [place], [address] , tel: [phone] [facility] No Information Jan-0 2 Martiniquais Hernando. [address] [place], [address], [place]. tel:[phone] [employer], [address], [place], [place], [address] , tel:[phone] [facility] No Information 2 English Villagomez. [address], [address], . tel:[phone] Referring Provider: [place], [address] . tel:[phone] OFFICE ZAKBE-ZAX-WR PANDED [facility], [address], [place], [place], [address] , tel:[phone] [facility] Discuss Power chair (chief complaint) History of above-knee amputation of left lower extremityChro kamryn hypoxemic respiratory failure 2 English Villagomez. [address] [place], [address], [place]. tel:[phone] Referring Provider: [place], [address] . tel:[phone] [facility], [address], [place], [place], [address] , [phone] [facility] Encounter for screening for malignant neoplasm of colonEncounte r for screening for malignant neoplasm of colon 0 2 English Villagomez. [address] [place], [address], [place]. tel:[phone] PREVENTATIVE -EST: 65 & OVER [facility], [address], [place], [place], [address] , tel:[phone] [facility] PX (chief complaint) Annual physical examChronic hypoxemic respiratory failureEssent ial (primary) hypertensionH istory of above-knee amputation of left lower extremityChro kamryn GERDCerebral atrophyCOPD with asthmaLow back pain, unspecifiedBo dy mass index [BMI] 35.0-35.9, adultDecrease d pulseMixed hyperlipidemi aHyperglycemi a 2 English John. [address] [place], [address], [place]. tel:[phone] Referring Provider: [place], [address] . tel:[phone] OFFICE NBAIH-VAX-QY [facility], [address], [place], [place], [address] , [phone] [facility] and long-term f/u (chief complaint) Body mass index [BMI] 33.0-33.9, adultChronic hypoxemic respiratory failureHistor y of above-knee amputation of left lower extremityChro kamryn GERDCerebral atrophyEssent ial (primary) hypertensionS tage 3 chronic kidney disease, unspecified whether stage 3a or 3b CKDCOPD with asthmaHyperli pidemia, unspecified hyperlipidemi a typeAortic atheroscleros isOther chronic painGAD (generalized anxiety disorder)Hype rglycemiaPorp hyria 1 English Villagomez. [address] [place], [place], [address], . tel:[phone] Referring Provider: Hernando Velasquez, [address] [place] [address], [address] . tel:[phone] [facility], [address], [place], [place], [address] , [phone] [place] No Information 1 English Villagomez. [address] [place], [place], [address], . tel:[phone] OFFICE PAXIU-LHB-VC [facility], [address], [place], [place], [address] , tel:[phone] [place] telehealth (chief complaint)OV for form (chief complaint)Test Data Developer kamryn Conditions (chief complaint) Unsteady gaitAortic atheroscleros isEssential (primary) hypertensionC erebral atrophyChroni c GERDNeuropath yChronic hypoxemic respiratory failure 0 Dejesus Kay. [address] [place], [place], [address], . tel:[phone] Referring Provider: Hernando Velasquez, [address] [place] [address], [address] . tel:[phone] [facility], [address], [place], [place], [address] , [place] tel: [phone] [facility] calcification s 0- 0 English Villagomez. [address] [place], [place], [address], [place]. [phone] [facility], [address], [place], [place], [address] , tel: [phone] [place] No Information 9 English Villagomez. [address] [place], [place], [address], [place]. [phone] Referring Provider: Hernando Velasquez, [address] [place], [address] . tel:[phone] OFFICE GAKSU-VMG-TY TAILED [facility], [address], [place], [place], [address] , tel: [phone] [facility] f/u (chief complaint) Syncope, unspecified syncope typeChronic low back pain, unspecified back pain laterality, unspecified whether sciatica presentOther chronic painAKI (acute kidney injury)Hyperk alemiaBody mass index (BMI) 40.0-44.9, adultMorbid (severe) obesity due to excess calories 9 Dejesus Kay. [address] [place], [place], [address], . [phone] Referring Provider: [place], [address] . tel:[phone] OFFICE ZCAMG-SYT-NZ PANDED [facility], [address], [place], [place], [address] , [place] tel: [phone] [place] 1 week follow up (chief complaint) LUAN (acute kidney injury) 9 English Villagomez. [address], [address], [place]. tel:[phone] Referring Provider: [place], [address] . tel:[phone] [facility], [address], [place], [place], [address] , tel: [phone] [place] No Information 9 English Villagomez. [address], [address], [place]. tel:[phone] [facility] [facility], [address], [place], [place], [address] , tel: [phone] [facility] Flu shot (chief complaint) Essential hypertensionE ncounter for immunization 9 English Villagomez. [address], [address], [place]. tel:[phone] Referring Provider: Hernando Velasquez, [place], [address] . tel:[phone] [facility], [address], [place], [place], [address] , tel: [phone] [facility] Essential hypertension 9 English Villagomez. [address], [address], [place]. tel:[phone] Referring Provider: [place], [address] . tel:[phone] OFFICE YDOON-CEN-GK TAILED [employer] [facility], [address], [place], [place], [address] , tel: [phone] [facility] 6 month (chief complaint) Essential (primary) hypertensionC hronic GERDCerebral atrophyBody mass index (BMI) 40.0-44.9, adultMorbid (severe) obesity due to excess caloriesNeuro pathyLong term current use of opiate analgesic 9 English Villagomez. [address] [place], [address], [place]. tel:[phone] Referring Provider: [place], [address] . tel:[phone] [facility], [address], [place], [place], [address] , tel: [phone] [facility] Breast calcification s 9 English Villagomez. [place], [address], [place]. tel:[phone] [facility], [address], [place], [place], [address] , tel: [phone] [place] No Information English John. [place], [address], . tel:[phone] [facility], [address], [place], [place], [address] , tel: [phone] [place] Hormone replacement therapySympto ms such as flushing, sleeplessness , headache, lack of concentration , associated with natural (age-related) menopause 9 English Villagomez. [place], [address], [place]. tel:[phone] [facility], [address], [place], [place], [address] , tel: [phone] [place] sore under Left arm (chief complaint) Abscess of axilla English John. [place], [address], [place]. tel:[phone] Referring Provider: [place], [address] . tel:[phone] [facility], [address], [place], [place], [address] , tel: [phone] [place] sores under left arm (chief complaint) Abscess of axilla 9 Martiniquais John. [place], [address], [place]. tel:[phone] Referring Provider: [place], [address] . tel:[phone] [facility], [address], [place], [place], [address] , tel: [phone] [facility] SeizureMixed hyperlipidemi aEssential (primary) hypertensionC hronic GERDAortic atheroscleros isEsophageal strictureNeur opathy English VillagomezViraj [place], [address], [place]. tel:[phone] Referring Provider: [place], [address] . tel:[phone] [facility], [address], [place], [place], [address] , tel: [phone] [facility] No Information 8 Martiniquais Hernando. [place], [address], . tel:[phone] Referring Provider: [place], [address] . tel:[phone] [facility], [address], [place], [place], [address] , tel: [phone] [facility] Body mass index (BMI) 33.0-33.9, adultEssentia l (primary) hypertensionC OPD with asthmaChronic GERDHyperlipi demia, unspecified hyperlipidemi a typeInsomnia disorder, with non-sleep disorder mental comorbidity, recurrent 8 Martiniquais Hernando. [address], [address], [place]. tel:[phone] Referring Provider: [place], [address] . tel:[phone] [facility], [address], [place], [place], [address] , tel: [phone] [facility] Abscess of neck 8 Martiniquais Hernando. [place], [address], [place]. tel:[phone] Referring Provider: [place], [address] . tel:[phone] [facility], [address], [place], [place], [address] , tel: [phone] [facility] Chronic respiratory failure with hypoxiaAortic atheroscleros isGAD (generalized anxiety disorder)Esse ntial (primary) hypertension 8 English Villagomez. [place], [address], [place]. tel:[phone] Referring Provider: [place], [address] . tel:[phone] [facility], [address], [place], [place], [address] , tel: [phone] Aaron watermelon inspector current use of opiate analgesicSore throat 8 English Villagomez. [place], [address], [place]. tel:[phone] Referring Provider: Hernando Velasquez, [place], [address] . tel:[phone] [facility], [address], [place], [place], [address] , tel: [phone] [facility] Hyponatremia 8 English Villagomez. [place], [address], . tel:[phone] Referring Provider: Hern[place], [address] . tel:[phone] [facility], [address], [place], [place], [address] , tel: [phone] [place] Chronic respiratory failure with hypoxiaUnspec ified convulsionsEs sential (primary) hypertensionM orbid (severe) obesity due to excess caloriesGastr oparesis 8 English Villagomez. [place], [address], . tel:[phone] Referring Provider: [place], [address] . tel:[phone] [facility], [address], [place], [place], [address] , [place] tel: [phone] [facility] SOB (shortness of breath) 7 English Villagomez. [place], [address], . tel:[phone] [facility], [address], [place], [place], [address] , tel: [phone] [facility] Morbid obesity due to excess caloriesSeizu reChronic respiratory failure, unspecified whether with hypoxia or hypercapniaOt her and unspecified hyperlipidemi aAortic atheroscleros isOsteoarthri tis of knee, unspecifiedBi polar 1 disorderEssen tial tremor 7 English Villagomez. [address] [place], [place], [address], [place]. tel:[phone] Referring Provider: Hernando Velasquez, [address] [place], [address] . tel:[phone] [employer], [address], [place], [place], [address] , tel: [phone] [facility] Chronic respiratory failure, unspecified whether with hypoxia or hypercapniaBi polar 1 disorderClass 3 obesity with serious comorbidity and body mass index (BMI) of 40.0 to 44.9 in adult, unspecified obesity typeSeizureSO B (shortness of breath)Benign essential hypertension 7 English Villagomez. [address] [place], [address], [place]. tel:[phone] Referring Provider: Hernando Velasquez, [address] [place], [address] . tel:[phone] [employer], [address], [place], [place], [address] , tel: [phone] [facility] Weakness 7 Eder Kennedy. [address], [facility], . tel:[phone] [employer], [address], [place], [place], [address] , tel: [phone] [facility] Weakness 7 Eder Kennedy. [address] [address], [place], [address], [place]. tel:[phone] [employer], [address], [place], [place], [address] , tel: [phone] [facility] Essential hypertensionM ixed hyperlipidemi aModerate episode of recurrent major depressive disorderSeizu reGastroesoph ageal reflux disease, esophagitis presence not specifiedMorb id obesity due to excess caloriesSyndr ome of inappropriate antidiuretic hormone 7 Eder Kennedy. [address] [address], [place], [address], [place]. tel:[phone] Referring Provider: Marcia Gaines, [address] [address], [place], [address]. tel:[phone] [employer], [address], [place], [place], [address] , tel: [phone] [facility] Screening mammogram, encounter for 7 Eder Kennedy. [address] [address], [place], [address], [place]. tel:[phone] [employer], [address], [place], [place], [address] , [place] tel: [phone] [facility] SOB (shortness of breath)Acute rhinosinusiti s Martiniquais Hernando. [address] [place] [address], [address], [place]. tel:[phone] Referring Provider: Marcia Gaines, [facility] [address], [place], [address]. tel:[phone] [employer], [address], [place], [place], [address] , [place] tel: [phone] [facility] SeizureEssent ial hypertensionH yponatremiaMi xed hyperlipidemi aMorbid obesity due to excess caloriesModer ate episode of recurrent major depressive disorderLong term use of drug Jun- 6 Eder Kennedy. [address], [address], [place]. tel:[phone] Referring Provider: Marcia Gaines, [address] [address], [place], [address]. tel:[phone] [employer], [address], [place], [place], [address] , tel: [phone] [facility] SOB (shortness of breath) [address] [facility], [address], [place], [address], [place]. tel: [phone] [employer], [address], [place], [place], [address] , [place] tel: [phone] [facility] Pathological fracture, left ankle, sequela Sep-2 8-[address] [facility], [address], [place], [address], [place]. tel: [phone] [employer] [facility], [address], [place], [place], [address] , [place] tel: [phone] [facility] Pathological fracture, left ankle, sequela Sep-2 3-[address] [facility], [address], [place], [address], [place]. tel: [phone] [employer] [facility], [address], [place], [place], [address] , [place] tel: [phone] [facility] Pathological fracture, left ankle, sequela Sep-1 6-[address] [facility], [address], [place], [address], [place]. tel: [phone] [employer], [address], [place], [place], [address] , [place] tel: [phone] [facility] SANTI (obstructive sleep apnea) May-2 6 Giovanny Dela Cruz. [address] [place], [address]. tel: [phone] [employer], [address], [place], [place], [address] , [place] tel:[phone] [facility] Carpal tunnel syndrome, unspecified upper limb Apr-1 8- 6 Meg Serrano [address] [place], [place], [address], [place]. tel: [phone] [employer], [address], [place], [place], [address] , [place] tel: [phone] [facility] Osteoarthriti s of knee, unspecified Apr-0 6-201 6 Meg Serrano [address] [place], [place], [address], [place]. tel:[phone] [employer], [address], [place], [place], [address] , [place] tel: [phone] [facility] Chronic, continuous use of opioidsOther and unspecified hyperlipidemi aImpaired fasting glucoseSleep apnea, unspecified typeEssential (primary) hypertensionF atty liverGastropa resis 6 Meg Toney. [address] [place], [place], [address], [place]. tel:[phone] Referring Provider: Feng Whitley, [address] [place], [address] . tel:[phone] [employer], [address], [place], [place], [address] , [place] tel: [phone] [facility] Impaired fasting glucoseOther and unspecified hyperlipidemi aChronic, continuous use of opioids 6 Meg Toney. [address] [place], [address], [place]. tel:[phone] Referring Provider: Feng Whitley, [address] [place], [address] . tel:[phone] [employer], [address], [place], [place], [address] , [place] tel: [phone] [facility] Lung nodule seen on imaging study Meg Toney. [address] [place], [address], [place]. tel:[phone] [employer], [address], [place], [place], [address] , [place] tel: [phone] [facility] Sleep apnea, unspecified type 6 Meg Toney. [address] [place], [address], [place]. tel:[phone] [employer], [address], [place], [place], [address] , [place] tel: [phone] [facility] Syndrome of inappropriate antidiuretic hormone 5 Meg Toney. [address] [place], [address], [place]. tel:[phone] Referring Provider: Feng Whitley, [address] [place], [address] . tel:[phone] [employer], [address], [place], [place], [address] , [place] tel: [phone] [facility] Low serum sodiumSyndrom e of inappropriate antidiuretic hormone 5 Meg Toney. [address] [place], [place], [address], [place]. tel:[phone] [employer], [address], [place], [place], [address] , [place] tel: [phone] [facility] Low sodium levels 5 Meg Toney. [address] [place], [address], [place]. tel:[phone] Referring Provider: Feng Whitley, [address] [place], [address] . tel:[phone] [employer], [address], [place], [place], [address] , [place] tel: [phone] [facility] DermatitisEss ential (primary) hypertensionE ncntr for general adult medical exam w/o abnormal findingsHypon atremia 5 [facility] Dora. [address] [place], [address], [place]. tel:[phone] Referring Provider: Feng Whitley, [address] [place], [address] . tel:[phone] [employer], [address], [place], [place], [address] , [place] tel: [phone] [facility] Sleep apnea, unspecified 5 Meg Toney. [place], [address], [place]. tel:[phone] [employer], [address], [place], [place], [address] , [place] tel: [phone] [facility] Hyperosmolali ty and/or hypernatremia Unspecified disease of white blood cells Apr-0 8201 5 Meg Toney. [address] [place], [address], [place]. [phone] Referring Provider: Feng Whitley, [address] [place], [address] . tel:[phone] [employer], [address], [place], [place], [address] , [place] tel: [phone] [facility] Insomnia with sleep apnea, unspecifiedBe nign essential hypertensionB ackache, unspecifiedOt her and unspecified hyperlipidemi aOsteoarthros is, generalized, involving unspecified siteEsophagea l refluxOther convulsionsRi ght knee DJDAnalgesic useRoutine general medical examination at a health care facility Sep-1 0- 5 Meg Toney. [address] [place], [place], [address], [place]. [phone] Referring Provider: Feng Whitley, [address] [place], [address] . tel:[phone] [employer], [address], [place], [place], [address] , [place] tel: [phone] [facility] Impaired fasting glucose Sep-0 9201 5 Meg Toney. [address] [place], [place], [address], [place]. tel:[phone] Referring Provider: Feng Whitley, [address] [place], [address] . tel:[phone] [employer], [address], [place], [place], [address] , [place] tel: [phone] [facility] Benign essential hypertensionU nspecified idiopathic peripheral neuropathyIns omnia with sleep apnea, unspecifiedOt her convulsionsIr ritable bowel syndromeGenit al herpes, unspecified Feb-0 5-201 5 Torin John. [address] [place], [address], [place]. tel:[phone] Referring Provider: Feng Whitley, [address] [place], [address] . tel:[phone] [employer], [address], [place], [place], [address] , tel: [phone] Aaron No Information Apr-0 4 Meg Toney. [address] [place], [place], [address], . tel:[phone] Referring Provider: Feng Whitley, [address] [place], [address] . tel:[phone] [employer], [address], [place], [place], [address] , [place] tel: [phone] Aaron Neoplasm of uncertain behavior of face Mar- 4 Okdesi John. [facility] [place], [address], . tel:[phone] [employer], [address], [place], [place], [address] , tel: [phone] Aaron Benign essential hypertensionB ackache, unspecifiedOt her and unspecified hyperlipidemi aUnspecified idiopathic peripheral neuropathyCTS (carpal tunnel syndrome)SANTI on CPAP 3 4 Meg Toney. [address] [place], [place], [address], [place]. tel:[phone] Referring Provider: Feng Whitley, [address] [place], [address] . tel:[phone] [employer], [address], [place], [place], [address] , [place] tel:[phone] [facility] Snoring November-2 0 4 Torin John. [address] [place], [address], [place]. tel:[phone] [employer], [address], [place], [place], [address] , tel:[phone] [facility] BENIGN HYPERTENSIONH YPERLIPIDEMIA NEC/NOSLong-t erm (current) use of other medicationsFA M HX-DIABETES MELLITUSImpai red fasting glucose 4 Meg Toney. [address] [place], [place], [address], [place]. tel:[phone] Referring Provider: Feng Whitley, [address] [place], [address] . tel:[phone] [employer], [address], [place], [place], [address] , [place] tel: [phone] Aaron Iron deficiency anemia Fe 4 Meg Toney. [address] [place], [place], [address], [place]. tel:[phone] Referring Provider: Feng Whitley, [address] [place], [address] . tel:[phone] [employer], [address], [place], [place], [address] , [place] tel: [phone] No Information 3 Giovanny Dela Cruz. [address] [place], [place], [address]. tel:[phone] [employer], [address], [place], [place], [address] , [place] tel: [phone] [facility] No Information 3 Meg Toney. [address] [place], [place], [address], [place]. tel:[phone] [employer], [address], [place], [place], [address] , [place] tel: [phone] [facility] IRRITABLE BOWEL SYNDROMEBENIG N HYPERTENSIONI NINA PERIPH NEURPTHY NOSESOPHAGEAL REFLUXGENERAL OSTEOARTHROSI SCONVULSIONS NECHeart murmur 3 Torin John. [address] [place], [address], [place]. [phone] Referring Provider: Feng Whitley, [address] [place], [address] . tel:[phone] [employer], [address], [place], [place], [address] , [place] tel: [phone] [facility] Cough 3 Meg Toney. [address] [place], [place], [address], . tel:[phone] [facility], [address], [place], [place], [address] , tel: [phone] [facility] BENIGN HYPERTENSIONB ACKACHE NOSCONVULSION S NECRight knee DJDEsophageal refluxOther and unspecified hyperlipidemi a 3 Meg Toney. [address] [place], [place], [address], . tel:[phone] Referring Provider: Feng Whitley, [address] [place], [address] . tel:[phone] [facility] [address], [place], [place], [address] , tel: [phone] [facility] Other and unspecified hyperlipidemi aBenign essential hypertensionL coleen-term (current) use of other medications 3 Meg Toney. [address] [place], [place], [address], . tel:[phone] Referring Provider: Feng Whitley, [address] [place], [address] . tel:[phone] [facility], [address], [place], [place], [address] , tel: [phone] Aaron No Information 2 Meg Toney. [address] [place], [place], [address], . tel:[phone] Referring Provider: Feng Whitley, [address] [place], [address] . tel:[phone] [facility], [address], [place], [place], [address] , tel: [phone] [facility] IDIO PERIPH NEURPTHY NOSCONVULSION S NECBENIGN HYPERTENSIONG ENITAL HERPES NOSHYPERLIPID EMIA NEC/NOSAllerg ic rhinitis 2 Torin John. [address] [place], [address], [place]. tel:[phone] Referring Provider: Feng Whitley, [address] [place], [address] . tel:[phone] [facility], [address], [place], [place], [address] , tel: [phone] Aaron Blood in stool 2 Meg Toney. [address] [place], [place], [address], [place]. tel:[phone] Referring Provider: Feng Whitley, [address] [place], [address] . tel:[phone] [facility], [address], [place], [place], [address] , tel: [phone] Aaron Long-term (current) use of other medications 1 Meg Toney. [address] [place], [place], [address], [place]. tel:[phone] Referring Provider: Feng Whitley, [address] [place], [address] . tel:[phone] [facility], [address], [place], [place], [address] , tel: [phone] Aaron No Information 1 Meg Toney. [address] [place] [address], [address], [place]. tel:[phone] Referring Provider: Feng Whitley, [address] [place], [address] . tel:[phone] [facility], [address], [place], [place], [address] , tel:[phone] Aaron HYPERLIPIDEMI A NEC/NOSLONG-T ERM USE MEDS NEC 1 Meg Toney. [address] [place], [place], [address], . tel:[phone] [facility], [address], [place], [place], [address] , tel: [phone] [facility] No Information November-2 0-201 1 Meg Self [place], [address], [place]. tel:[phone] [facility], [address], [place], [place], [address] , tel: [phone] [facility] IDIO PERIPH NEURPTHY NOS 1 Torin John. [address] [place], [address], [place]. tel:[phone] [facility], [address], [place], [place], [address] , [place] tel: [phone] [facility] BENIGN HYPERTENSION 1 Meg Self [place], [address], [place]. tel:[phone] [facility], [address] [facility], [place], [place], [address] , [place] tel: [phone] [facility] HERPES ZOSTER NOS Jun-2 3-201 0 Meg Self [place], [address], [place]. tel:[phone] [facility], [address], [place], [place], [address] , tel:[phone] [facility] SCREEN MALIG NEOP-COLON May- 8-201 0 Meg Self [place], [address], [place]. tel:[phone] [facility], [address], [place], [place], [address] , [place] tel:[phone] Aaron VACCIN FOR INFLUENZA 1-201 0 Meg Self [place], [address], [place]. tel:[phone] [facility], [address], [place], [place], [address] , [place] tel:[phone] [facility] TEAR FILM INSUFFIC NOS Sep-0 2-201 0 [facility]. [address], [place], [address], [place]. [facility], [address], [place], [place], [address] , [place] tel:[phone] [facility] FAM HX-DIABETES MELLITUS 0 Meg Self [place], [address], [place]. tel:[phone] [facility], [address], [place], [place], [address] , [place] tel:[phone] [facility] GENERAL OSTEOARTHROSI S 0 Meg Self [facility], [place], [place], [address], [place]. tel:[phone] [employer], [address], [place], [place], [address] , [place] tel:[phone] [facility] GENITAL HERPES NOS 0 Elizabethcorrina Self [facility], [place], [place], [address], [place]. tel:[phone] [employer], [address], [place], [place], [address] , [place] tel:[phone] [facility] CONVULSIONS NEC 9 Meg Self [facility], [place], [place], [address], [place]. tel:[phone] [employer], [address], [place], [place], [address] , tel:[phone] [facility] No Information 2 8 Meg Self [place], [address], [place]. tel:[phone] [employer], [address], [place], [place], [address] , [place] tel:[phone] [facility] MIGRNE UNSP WO NTRC MGRNESOPHAGEA L REFLUX 0 7 Meg ToneyViraj Self [facility], [place], [place], [address], [place]. tel:[phone] [facility], [address], [place], [place], [address] , [place] tel: [phone] [facility] HORMONE REPLACE POSTMENO 7 Meg Self [place], [address], . tel:[phone] [employer], [address], [place], [place], [address] , tel: [phone] [facility] SCREEN LIPOID DISORDERS 5 Meg Toney. [place], [address], [place]. tel:[phone] [employer], [address], [place], [place], [address] , tel: [phone] [facility] ROUTINE MEDICAL EXAM 3 Meg Self [place], [place], [address], [place]. tel:[phone] [employer], [address], [place], [place], [address] , tel: [phone] [facility] SCREEN MAL NEOP OTH SITE 2 Meg Self [place], [place], [address], [place]. tel:[phone] Family History Family Member Type Diagnosis Age [...] doses, administered 21 days apart administered Note: long-term n [facility] ; Source: Other Provider Fluzone High-Dose, high dose , preservative free administered Note: done at the [facility] (date is approximate) ; Source: Source Unspecified Pfizer-BioNTech COVID19 Vaccine, 0.3mL per dose, 2 doses, administered 21 days apart administered Note: [facility] ; Source: Source Unspecified Pfizer-BioNTech COVID19 Vaccine, 0.3mL per dose, 2 doses, administered 21 days apart administered Note: [facility] ; Source: Source Unspecified pneumococcal polysaccharide vaccine, 23 valent administered Note: hospital ; [facility] rce: Source Unspecified Flublok, quadrivalent, preservative [...] Source: New Immuniza tion Record Fluzone Quad , preservative free, split virus, 0.5mL dosage administered Source: New Immuniza tion Record Influenza, injectable, quadrivalent, preservative free, 3 yrs or older administered Source: New Immuniz ation Record Pneumococcal conjugate PCV 13 administere d Source: New Immunization Record Influenza, injectable, quadrivalent, preservative free, 3 yrs or older administered Source: New Immuniz ation Record Fluzone administered Note: [facility] [id number] ; Source: New Immunization Record Fluzone administered Note: [facility]# [id number] 1390-15 ; Source: New Immunization Record Flu (split) (3 yrs or older) administered Source: New Immunization Record 69656 - Influenza administered Source: So urce Unspecified 12821 - Influenza administered Source: So urce Unspecified 89451 - Pneumococcal_PPV23 administered S ource: Source Unspecified 95579 - Influenza administered Source: So urce Unspecified 39357 - Influenza administered Source: So urce Unspecified 07459 - Influenza administered Source: So urce Unspecified 17127 - Influenza administered Source: So urce Unspecified 39506 - Influenza administered Source: So urce Unspecified 64440 - Influenza administered Source: So urce Unspecified Payers Payer name Insurance type Covered democrat ID Authoriza tion(s) AETNA PPO CI [id number] AETNA PPO CI [id number] AETNA PPO CI [id number] AETNA [facility] [place] [facility] [place] [id number] [place] [employer] [id number] AETNA [facility] GOLD ADVANTAGE [facility] [place] [id number] AETNA [facility] GOLD ADVANTAGE [facility] [place] [id number] AETNA [facility] GOLD ADVANTAGE [facility] [place] [id number] AETNA [facility] [place] [id number] Social History Type Description Quantity Date Captured Comments Sex Female Smoking Status No Information Chief Complaint And Reason For Visit No [...] and counseling completed Referral Referred To: [address] [place], [id number] Ordered: SCREENING MAMMOGRAM (CAD) ordered Referral Ordered: JUAN C POLANCO -[facility]opathic [facility] Osteopathic Physicians : Orthopaedic Surgery (related to Follow-up exam) ordered Referral Referred To: JUAN C POLANCO [address] [place], [phone] Ordered: Referrals: Orthopedic Surgery. JUAN C POLANCO. Evaluation/diagnostic/treatment - Level 3 Appointment date/timeframe: 09/24/2022 ordered Referral Ordered: COLONOSCOPY, Flexible, Proximal To Splenic, Diagnostic, Wor W/O Collection Of Sp ordered Referral Ordered: HANG (ankle brachial index) ordered Referral Referred To: Dean Stephenson MD [address] [place]. [address] [place] [address], [phone] Ordered: Referrals: Pulmonology. Dean Stephenson MD. Evaluation/diagnostic/treatment [...] weightpt cannot walk at all bc of cmg07antunz strength in right legstrengthin right arm 2/5strength [...] screeningimmunizations--utdmood-- up and downmemory-- fine hospital and long-term f/u re spiratpry failure-- still on oxygenleft [...] while I was in my office in [place], [place], and pt. was in their home in [place], [place]. OV for form Patient presents for [...] for hospital follow-up. She was admitted to [facility] on 06/10/2019. Patient presented to ER with [...] x-ray. Patient was given home doses of Erskine and was given Flexeril, lidocaine patches and [...] capsaicin, Baclofen PO and home dose of Erskine. Patient was discharged with no new medications. She had no other imaging performedPatient was noted to have hyperkalemia one month ago. We will check labs todayShe has a TENS units (latex free) but she still has a rash from the patches.Patient feels that her hydrocodone needs to be increased. 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
--- OUTSIDE RECORDS SUMMARY | 2024-09-07 16:00 | XMS_ITS | Encounter Summary ---
Author Organization [facility] Facility Care Team Providers Care Sweetbread Trimmer Name Role Phone Hernando Velasquez MD Primary Care Provider [phone] Jose Manuel Gruber MD Unavailable [phone] Bernardo [place] MD Primary Care Provider [phone] Hernando Velasquez MD Primary Care Provider [phone] Bernardo [place] MD Primary Care Provider [phone] Bernardo [place] MD Primary Care Provider Hernando Velasquez MD Primary Care Provider [phone] Encounter Details Date Type Department Care Team (Latest Contact Info) Description 07/22/2016 Orders Only [facility] CLINCONV ProviderLucille MD [address] [place] [address] Social History Tobacco Use Types Packs/Day [...] Comments SCAN - LABS 07/23/2016 12:00 AM HIDE DYER documented in this encounter Results * SCAN - LABS (07/23/2016 12:00 AM HIDE DYER) Narrative 07/23/2016 12:00 AM HIDE DYER Ordered by an unspecified provider. us Historical [...] documented as of this encounter Care Teams Sweetbread Trimmer Relationship Specialty Start Date End Date Hernando Velasquez MD [address] [place] [address] PCP - General 12/23/18 06/13/19 Bernardo Edwards MD [address] [place] [address] PCP - General 07/05/20 07/06/20 Hernando Velasquez MD [address] [place] [address] PCP - General 07/07/20 07/07/20 Bernardo Edwards MD [address] [place] [address] PCP - General 07/08/20 01/06/22 Bernardo Edwards MD [address] [place] [address] PCP - General 06/14/19 07/04/20 Hernando Velasquez MD [address] [place] [address] PCP - General Internal Medicine 01/07/22 Jose Manuel Gruber MD [address] [place] [address] Fellow Orthopedic Surgery 07/06/19 documented as of this encounter
--- OUTSIDE RECORDS SUMMARY | 2024-09-07 16:00 | XMS_ITS | Clinical Summary ---
Author Organization [facility] Healthcare Address [address] [place] [address] Care Team Providers Care Production Solderer Name Role Phone Jose Manuel Gruber MD Unavailable [phone] Hernando Velasquez MD Primary Care Provider [phone] Allergies Active Allergy Reactions Criticality Noted Date Comments Barbiturates Unknown,Other (See comments) Medium 09/13/2006 Diazepam Unknown,Other (See comments) Low 09/13/2006 Fish Containing Products Anaphylaxis High 07/05/2019 Iodine Unknown,Other (See comments) Low 09/13/2006 Latex Unknown 06/28/2019 Menthol Hives,Itching,Rash Medium 07/08/2022 [place]-3 Fatty Acids Unknown,Other (See comments) Low 12/12/2010 [...] 04/15/2022 Assessment & Plan (07/08/2022 2:39 PM ENGINEERING SPECIALIST TECHNICIAN): I did recommend that the patient decrease [...] 01/07/2022 Assessment & Plan (07/08/2022 2:39 PM ENGINEERING SPECIALIST TECHNICIAN): The patient does have some cough with [...] 01/07/2022 Assessment & Plan (07/08/2022 2:39 PM ENGINEERING SPECIALIST TECHNICIAN): She was intolerant of CPAP therapy and [...] 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 - She reports her only symptom [...] SNF. Assessment & Plan (07/07/2020 6:25 PM ENGINEERING SPECIALIST TECHNICIAN): - Pt states she was actually tested [...] protocol Assessment & Plan (07/06/2020 11:59 AM ENGINEERING SPECIALIST TECHNICIAN): - recommend getting records from SNF to establish exact date of first (+) COVID test. - pt likely has completed days of isolation. Assessment & Plan (07/06/2020 7:34 AM ENGINEERING SPECIALIST TECHNICIAN): - Per report, pt was tested for [...] protocol Assessment & Plan (07/05/2020 5:40 PM ENGINEERING SPECIALIST TECHNICIAN): - Per report, pt was tested for [...] 07/05/2020 Assessment & Plan (07/11/2020 6:57 AM ENGINEERING SPECIALIST TECHNICIAN): History of open periprosthetic tibia/fibula fracture s/p [...] left lower extremity. - PM&R consulted. - Boom Worker placed stump engineering executive / ampushield. Awaiting delivery of limb protector. - Patient not interested in prosthesis at this time. - PT/OT consults. - Plan for patient to return to her prior SNF when medically stable with ongoing PT/OT. - ID and Ortho following. Assessment & Plan (07/07/2020 6:27 PM ENGINEERING SPECIALIST TECHNICIAN): - History of open periprosthetic tibia/fibula fracture [...] extremity Assessment & Plan (07/06/2020 3:07 PM ENGINEERING SPECIALIST TECHNICIAN): - Cellulitis vs subcutaneous infection vs OM [...] recs. Assessment & Plan (07/05/2020 6:03 PM ENGINEERING SPECIALIST TECHNICIAN): - Cellulitis vs subcutaneous infection vs OM [...] (07/08/2020): Added automatically from request for surgery [id number] Abnormal x-ray of extremity 07/20/2019 Acute exacerbation of chronic low back pain 06/26 Biliary colic 07/20/2019 Chronic lumbosacral pain 07/20/2019 Chronic respiratory failure 07/20/2019 Assessment & Plan (07/08/2020 4:27 PM ENGINEERING SPECIALIST TECHNICIAN): - Per pt 2/2 COPD. No sings of acute exacerbation. - Continue home flonase - Continue home albuterol prn - On home is on 4L O2 at baseline Assessment & Plan (07/07/2020 6:26 PM ENGINEERING SPECIALIST TECHNICIAN): - Per pt 2/2 COPD. No sings of acute exacerbation. - Continue home flonase - Continue home albuterol prn - On baseline 4L O2 Assessment & Plan (07/06/2020 7:33 AM ENGINEERING SPECIALIST TECHNICIAN): - Per pt 2/2 COPD. No sings of acute exacerbation. - Continue home flonase - Continue home albuterol prn - On baseline 4L O2 Assessment & Plan (07/05/2020 6:00 PM ENGINEERING SPECIALIST TECHNICIAN): - Per pt 2/2 COPD. No sings of acute exacerbation. - Continue home flonase - Continue home albuterol prn - On baseline 4L O2 Closed displaced bimalleolar fracture of right l ower leg 07/20/2019 Assessment & Plan (07/05/2020 6:01 PM ENGINEERING SPECIALIST TECHNICIAN): - As elsewhere Deep venous insufficiency 07/20/2019 [...] 06/28/2019 Assessment & Plan (07/08/2020 4:26 PM ENGINEERING SPECIALIST TECHNICIAN): - Follows with cardiology. - Continue home amlodipine, metoprolol, lasix, spironolactone. - Switched olmesartan to losartan as not on formulary. Assessment & Plan (07/07/2020 6:26 PM ENGINEERING SPECIALIST TECHNICIAN): - Follows with cardiology - Continue home amlodipine, metoprolol, lasix, spironolactone - Switched olmesartan to losartan as not on formulary Assessment & Plan (07/06/2020 3:04 PM ENGINEERING SPECIALIST TECHNICIAN): - Follows with cardiology - Continue home amlodipine, metoprolol, lasix, spironolactone - Switched olmesartan to losartan as not on formulary Assessment & Plan (07/05/2020 5:58 PM ENGINEERING SPECIALIST TECHNICIAN): - Follows with cardiology - Continue home amlodipine, metoprolol, lasix, spironolactone - Switch olmesartan to losartan as not on formulary Syncope due to sick sinus syndrome (CMS/HCC) 10/2018 Open displaced comminuted fr acture of shaft of left tibia, type IIIA, IIIB, or IIIC 06/28/2019 Overview (06/28/2019): Added automatically from request for surgery [id number] Assessment & Plan (07/08/2020 4:27 PM ENGINEERING SPECIALIST TECHNICIAN): - See above. 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 After hours, the ID fellow sales correspondence clerk can be reached at [phone]. Assessment & Plan (07/05/2020 5:59 PM ENGINEERING SPECIALIST TECHNICIAN): - L tibia and R ankle fractures s/p BRENNA in 06/2020 - Complicated by poor healing and multiple infections of L anterior leg wound - Pt of Dr. Shoemaker Hyponatremia 11/23/2017 Assessment & Plan (07/11/2020 6:59 AM ENGINEERING SPECIALIST TECHNICIAN): - Pt with history of hypoNa (per report, baseline mid 120- low 130s). - Na 126 on admission. No AMS. - TSH wnl. Cortisol 17. - Na stable. Assessment & Plan (07/07/2020 6:26 PM ENGINEERING SPECIALIST TECHNICIAN): - Pt with history of hypoNa (per report, baseline mid 120- low 130s). - Na 126 on admission. No AMS. - TSH wnl. Cortisol 17. - Diuretics were held and Na improved to 132. Restart when able. Assessment & Plan (07/06/2020 7:31 AM ENGINEERING SPECIALIST TECHNICIAN): - Pt with history of hypoNa (per [...] Department Care Team Description 08/16/2024 Orders Only [facility] Cardiology [address] [place] [address] Vianca David NP from Last [...] Comments Blood Pressure 153/76 07/08/2022 2:24 PM ENGINEERING SPECIALIST TECHNICIAN Pulse 71 07/08/2022 2:24 PM ENGINEERING SPECIALIST TECHNICIAN Temperature 36.5 C (97.7 F) 01/16/2022 5:20 PM CDT Respiratory Rate 18 07/08/2022 2:24 PM ENGINEERING SPECIALIST TECHNICIAN Oxygen Saturation 96% 07/08/2022 2:24 PM ENGINEERING SPECIALIST TECHNICIAN Inhaled Oxygen Concentration - - Weight 89.4 [...] Breast Cancer Screening-Mammogram 02/19/2024 023 Covid-19 Vaccine (2023-08) 03/26/2024 07/29/2021, 05/29/2021, 08/14/2020, Additional history exists Influenza Vaccine (#1) 2024 , 05/16/2019, 05/04/2018, Additional history exists DTaP/Tdap/Td Vaccine (2 - Td or Tdap) 06/28/2029 06/28/2019 Pneumococcal vaccine 65+ Completed 018, 05/04/2018, 04/04/2015 Zoster Vaccine Completed 01/25/2019, 10/26, 11/15/2018 Hepatitis C Screening Completed 06/10/2019 Medical Devices Implanted Type Area Power Shovel Mechanic Device Identifier Shelf Expiration Date Model / Serial / Lot Synthes 223.581 Lcp Combi [id number] 8 Hole Limit Contact Taper End Plate Bone - S0 - [id number] Implanted:Qty: 1 on 06/28/2019 by Lo Laura DO at [facility] Plate Left: Tibia Synthes I 223.581 / 0 / 0 Synthes 212.106 3.5mm 2.9mm 20mm Self Tap Lock Stardrive Conical Head T15 Full - S0 - [id number] Implanted:Qty: 1 on 06/28/2019 by Lo Laura DO at [facility] Screw Left: Tibia Synthes I 212.106 / 0 / 0 Synthes 212.108 3.5mm 2.9mm 24mm Self Tap Lock Stardrive Conical Head Pelvis T15 - S0 - [id number] Implanted:Qty: 1 on 06/28/2019 by Lo Laura DO at [facility] Screw Left: Tibia Synthes I 212.108 / 0 / 0 Synthes 212.109 3.5mm 2.9mm 26mm Self Tap Lock Stardrive Conical Head T15 Full - S0 - [id number] Implanted:Qty: 1 on 06/28/2019 by Lo Laura DO at [facility] Screw Left: Tibia Synthes I 212.109 / 0 / 0 Synthes 212.104 3.5mm 2.9mm 16mm Self Tap Lock Stardrive Conical Head T15 Full - S0 - [id number] Implanted:Qty: 2 on 06/28/2019 by Lo Laura DO at [facility] Screw Left: Tibia Synthes I 212.104 / 0 / 0 Synthes 212.107 3.5mm 2.9mm 22mm Self Tap Lock Stardrive Conical Head T15 Full - S0 - [id number] Implanted:Qty: 1 on 06/28/2019 by Lo Laura DO at [facility] Screw Left: Tibia Synthes I 212.107 / 0 / 0 Synthes 212.103 3.5mm 2.9mm 14mm Self Tap Lock Stardrive Conical Head T15 Full - [id number] Implanted:Qty: 2 on 06/30/2019 by Jacobo Shoemaker MD at [facility] Left: Tibia Synthes I 212.103 / / Synthes 212.109 3.5mm 2.9mm 26mm Self Tap Lock Stardrive Conical Head T15 Full - [id number] Implanted:Qty: 2 on 06/30/2019 by Jacobo Shoemaker MD at [facility] Left: Tibia Synthes I 212.109 / / Synthes 212.101 3.5mm 2.9mm 10mm Self Tap Lock Stardrive Conical Head T15 Full - [id number] Implanted:Qty: 1 on 06/30/2019 by Jacobo Shoemaker MD at [facility] Left: Tibia Synthes I 212.101 / / Synthes 212.107 3.5mm 2.9mm 22mm Self Tap Lock Stardrive Conical Head T15 Full - [id number] Implanted:Qty: 1 on 06/30/2019 by Jacobo Shoemaker MD at [facility] Left: Tibia Synthes I 212.107 / / Synthes 204.840 3.5mm 6mm 40mm 2.5mm Self Tap Small Hexagonal Socket Low Profile - [id number] Implanted:Qty: 1 on 06/30/2019 by Jacobo Shoemaker MD at [facility] Left: Tibia Synthes I 204.840 / / Synthes 204.832 3.5mm 6mm 32mm 2.5mm Self Tap Small Hexagonal Socket Low Profile - [id number] Implanted:Qty: 1 on 06/30/2019 by Jacobo Shoemaker MD at [facility] Left: Tibia Synthes I 204.832 / / Synthes 241.351 Lcp 12mm [id number] .7mm 5 Hole Collar 1/3 Tubular Plate Bone - [id number] Implanted:Qty: 1 on 06/30/2019 by Jacobo Shoemaker MD at [facility] Left: Tibia Synthes I 241.351 / / Synthes 241.351 Lcp 12mm [id number] .7mm 5 Hole Collar 1/3 Tubular Plate Bone - [id number] Implanted:Qty: 1 on 06/30/2019 by Jacobo Shoemaker MD at [facility] Right: Ankle Synthes I 241.351 / / Synthes 204.826 3.5mm 6mm 26mm 2.5mm Self Tap Small Hexagonal Socket Low Profile - [id number] Implanted:Qty: 1 on 06/30/2019 by Jacobo Shoemaker MD at [facility] Right: Ankle Synthes I 204.826 / / Synthes 212.102 3.5mm 2.9mm 12mm Self Tap Lock Stardrive Conical Head T15 Full - [id number] Implanted:Qty: 1 on 06/30/2019 by Jacobo Shoemaker MD at [facility] Right: Ankle Synthes I 212.102 / / Synthes 212.114 3.5mm 2.9mm 35mm Self Tap Lock Stardrive Conical Head T15 Full - [id number] Implanted:Qty: 1 on 06/30/2019 by Jacobo Shoemaker MD at [facility] Right: Ankle Synthes I 212.114 / / Synthes 223.641 Lcp Combi [id number] 14 Hole Limit Contact Taper End Plate Bone - [id number] Implanted:Qty: 1 on 06/30/2019 by Jacobo Shoemaker MD at [facility] Left: Tibia Synthes I 223.641 / / Synthes 204.824 3.5mm 6mm 24mm 2.5mm Self Tap Small Hexagonal Socket Low Profile - [id number] Implanted:Qty: 2 on 06/30/2019 by Jacobo Shoemaker MD at [facility] Left: Tibia Synthes I 204.824 / / Synthes 212.104 3.5mm 2.9mm 16mm Self Tap Lock Stardrive Conical Head T15 Full - [id number] Implanted:Qty: 2 on 06/30/2019 by Jacobo Shoemaker MD at [facility] Left: Tibia Synthes I 212.104 / / Explanted Type Area Power Shovel Mechanic Device Identifier Shelf Expiration Date Model / Serial / Lot Synthes 204.836 3.5mm 6mm 36mm 2.5mm Self Tap Small Hexagonal Socket Low Profile - [id number] Explanted:Qty: 1 on 06/30/2019 at [facility] Right: Ankle Synthes I 204.836 / / Synthes 212.117 3.5mm 2.9mm 40mm Self Tap Lock Stardrive Conical Head T15 Full - [id number] Explanted:Qty: 1 on 06/30/2019 at [facility] Right: Ankle Synthes I 212.117 / / Procedures Procedure Name Priority Date/Time Associated Diagnosis Comments CARDIOLOGY DOCUMENT SCAN Routine 08/08/2024 7:14 AM ENGINEERING SPECIALIST TECHNICIAN SCREENING MAMMOGRAM BILATERAL W WILLIE Schedule Routine, Read Routine (OP Routine) 02/18/2023 1:39 PM CDT Screening mammogram, encounter for HEPATITIS PANEL, ACUTE Routine 06/10/2019 10:11 AM ENGINEERING SPECIALIST TECHNICIAN from Last 3 Months or Most Recently Relevant to Health Maintenance Results * Cardiology Document Scan (08/08/2024 7:14 AM ENGINEERING SPECIALIST TECHNICIAN) Anatomical Region Laterality Modality Other Vianca David [...] age 42, based on guidelines of the [employer] [place] (ACR Practice Parameter for the Performance of Screening and Diagnostic Mammography) and [place]. For women [...] * Hepatitis panel, acute (06/10/2019 10:11 AM ENGINEERING SPECIALIST TECHNICIAN) HepBsAg NONREACT NONREACTIVE [facility] Comment: Siemens CentaurXP using SUSU (chemiluminescent immunoassay) technology. NONREACTIVE: IgM antibodies to Hepatitis B Surface antigen not detected. REACTIVE: IgM antibodies to Hepatitis B Surface antigen detected. Reactive results will be confirmed by neutralization testing. HBsAb qn <3.10 mIU/mL [facility] Comment: Siemens CentaurXP using SUSU (chemiluminescent immunoassay) technology. 9.99 IU/L or less.....NONREACTIVE: IgM antibodies to Hepatitis B Surface antibody are not detected. 10.00 IU/L or greater..REACTIVE: IgM antibodies to Hepatitis B Surface antibody are detected. Hep B core IgM NONREACT NONREACTIVE [facility] Comment: Siemens CentaurXP using SUSU (chemiluminescent immunoassay) technology. NONREACTIVE: IgM antibodies to Hepatitis B Core antigen not detected. EQUIVOCAL: IgM antibodies to Hepatitis B Core antigen may or may not be present. Obtain a new specimen and retest. REACTIVE: IgM antibodies to Hepatitis B Core antigen detected. Hep A IgM NONREACT NONREACTIVE [facility] Comment: Siemens CentaurXP using SUSU (chemiluminescent immunoassay) technology. NONREACTIVE: IgM antibodies to Hepatitis A not detected. This does not exclude possibility of exposure to Hepatitis A or early acute infection. EQUIVOCAL:IgM antibodies to Hepatitis A may or may not be present. Suggest recollection and retest. REACTIVE: Antibodies to Hepatitis A detected. Hep C Ab NONREACT NONREACTIVE [facility] Comment: Siemens CentaurXP using SUSU (chemiluminescent immunoassay) [...] real-time PCR method. 06/10/2019 10:1 1 AM ENGINEERING SPECIALIST TECHNICIAN 06/10/2019 10:47 AM ENGINEERING SPECIALIST TECHNICIAN Narrative Resulting Agency Comment IN Destiny Pereira MD LAB MICROBIOLOGY - GENERAL ORDERABLES Final Result [facility] [address] [place] [address], [facility] [phone] from Last 3 Months or Most Recently Relevant to Health Maintenance Insurance [facility] AETNA [facility] ADVANTRA [facility] [place] [facility] IDPA [facility] IDPA MEDICARE Advance Directives For more information, please contact: [phone] Documents on File Type Date Recorded Patient Service Line Layer Expl anation ADVANCE DIRECTIVE 07/14/2020 6:58 AM * Full Code (Latest Code Status on File) Date Activated Date Inactivated Comments 07/05/2020 4:11 PM 07/12/2020 7:15 PM * Full Code Date Activated Date Inactivated Comments 06/28/2019 11:55 PM 07/06/2019 8:59 PM Care Teams Production Solderer Relationship Specialty Start Date End Date Hernando Velasquez MD [address] [place] [address] PCP - General Internal Medicine 01/07/22 Jose Manuel Gruber MD Fellow Orthopedic Surgery 07/06/19
--- OUTSIDE RECORDS SUMMARY | 2024-09-07 16:00 | XMS_ITS | Encounter Summary ---
Author Organization [facility] Facility Care Team Providers Care Applications Engineer Name Role Phone Hernando Velasquez MD Primary Care Provider [phone] Jose Manuel Gruber MD Unavailable [phone] Bernardo Edwards MD Primary Care Provider [phone] Hernando Velasquez MD Primary Care Provider [phone] Bernardo Edwards MD Primary Care Provider [phone] Bernardo Edwards MD Primary Care Provider [phone] Hernando Velasquez MD Primary Care Provider [phone] Encounter Details Date Type Department Care Team (Latest Contact Info) Description 07/12/2016 Orders Only [facility] CLINCONV ProviderLucille MD [address] [place] [id number] Social History Tobacco Use Types Packs/Day [...] Comments SCAN - LABS 07/23/2016 12:00 AM ESTHETICIAN MAKEUP ARTIST documented in this encounter Results * SCAN - LABS (07/23/2016 12:00 AM ESTHETICIAN MAKEUP ARTIST) Narrative 07/23/2016 12:00 AM ESTHETICIAN MAKEUP ARTIST Ordered by an unspecified provider. us Historical [...] documented as of this encounter Care Teams Applications Engineer Relationship Specialty Start Date End Date Hernando Velasquez MD [address] [place] [address] PCP - General 12/23/18 06/13/19 Bernardo Edwards MD [address] [place] [address] PCP - General 07/05/20 07/06/20 Hernando Velasquez MD [address] [place] [address] PCP - General 07/07/20 07/07/20 Bernardo Edwards MD [address] [place] [address] PCP - General 07/08/20 01/06/22 Bernardo Edwards MD [address] [place] [address] PCP - General 06/14/19 07/04/20 Hernando Velasquez MD [address] [place] [address] PCP - General Internal Medicine 01/07/22 Jose Manuel Gruber MD [address] [place] [address] Fellow Orthopedic Surgery 07/06/19 documented as of this encounter
--- OUTSIDE RECORDS SUMMARY | 2024-09-07 16:00 | XMS_ITS | Clinical Summary ---
Author Organization [facility] Address [facility] [place] [address] Care Team Providers Care Information Management Manager Name Role Phone Marcia Gaines MD Primary Care Provider [phone] Allergies Active Allergy Reactions Criticality Noted Date [...] tartrate 25 MG tablet 1 Active NYSTATIN 348455 UNIT/GM powder 1 Active ondansetron 8 MG [...] left lower extremity ([facility]) 08/02/2020 Leg skin lesion, left 07/05/2020 Overview (05/06/2021): Added automatically from request for surgery [id number] Infection 07/05/2020 Overview (05/06/2021): Last Assessment & [...] left lower extremity. - PM&R consulted. - Jewel Hole Gauger placed stump high school social studies teacher / ampushield. Awaiting delivery of limb protector. - Patient not interested in prosthesis at this time. - PT/OT consults. - Plan for patient to return to her prior SNF when medically stable with ongoing PT/OT. - ID and Ortho following. COVID-19 07/05/2020 Overview (05/06/2021): Last Assessment & Plan: - Patient tested positive for COVID-19 on 06/21/20 at her assisted ([facility] in [place], [place]). - She reports her only symptom [...] Plan: - As elsewhere Chronic respiratory failure ([facility]) Overview (05/06/2021): Last [...] 07/20/2019 Syncope due to sick sinus syndrome ([facility]) 06/28/2019 Open displaced comminuted fr acture of shaft of left tibia, type IIIA, IIIB, or IIIC 06/28/2019 Overview (05/06/2021): Added automatically from request for surgery [id number] Last Assessment & Plan: - See above. Moderate essential hypertension 06/28/2019 Overview (05/06/2021): Last Assessment & Plan: - Follows with cardiology. - Continue home amlodipine, metoprolol, lasix, spironolactone. - Switched olmesartan to losartan as not on formulary. Intractable seizure disorder ([facility]) 1 08/29/2018 Bipolar I disorder with anxious distress ([facility]) 06/28/2019 Traumatic rhabdomyolysis [...] 82 05/06/2021 11:50 AM CDT Temperature 36.6 C (97.8 F) 05/06/2021 11:50 AM CDT Respiratory Rate 20 05/06/2021 11:50 AM CDT [...] Zoster Vaccines Completed 01/25/2019, 10/26, 11/15/2018 Meningococcal B Vaccine Aged Out No l onger eligible based on patient's age to complete this topic Meningococcal Vaccine Aged Out No trent carlotta eligible based on patient's age to complete this topic RSV Immunizations Under 20 Months Aged Out No longer eligible based on patient's age to complete this topic Additional Health Concerns Infection Onset Date Last Indicated ESBL - Extended Spectrum Beta-lactamase 05/09/20 21 05/09/2021 Insurance MEDICAID AETNA Care Teams Information Management Manager Relationship Specialty Start Date End Date Marcia Gaines MD PCP - General 08/18/16
[2024-09-07] MEDS: SODIUM CHLORIDE 0.9% IV 1,000 ML 999 ML IV CONT (16:18)
[2024-09-07 16:20] LABS: Basophils Percent Auto 0.2 % (0.2-1.2); Eosinophils Absolute Auto 0.1 K/mm3 (0-0.3); Eosinophils Percent Auto 2.3 % (0-4.4); Hemoglobin 13.2 g/dL (12.0-15.0); Immature Granulocyte Absolute 0.03 K/mm3 (0.00-0.031); Immature Granulocyte Percent A 0.5 % (0-0.5); Immature Platelet Fraction Pct 10.6 % (0.9-11.2); Lymphocytes Percent Auto 22.9 % (18.3-44.2); Mean Corpuscular HGB Conc 35.7 g/dl (32-36); Mean Corpuscular Hemoglobin 30.6 pg (26-34); Mean Corpuscular Volume 85.8 fl (80-100); Mean Platelet Volume 11.6 fl (7.4-10.4); Monocytes Absolute Auto 0.4 K/mm3 (0.1-0.6); Monocytes Percent Auto 6.5 % (2.6-8.5); Neutrophils Absolute Auto 4.1 K/mm3 (1.3-6.7); Neutrophils Percent Auto 67.6 % (45.5-73.1); Platelet Count Result 98 k/mm3 (150-375); Red Blood Count 4.31 M/mm3 (4.2-5.4); Red Cell Distribution Width 13.1 % (11.5-14.5); White Blood Count 6.1 K/mm3 (4.5-10.0)
[2024-09-07 16:35] LABS: Platelet Estimate Decreased (Adequate); Schistocytes None Seen
[2024-09-07 16:46] LABS: Add Urine Microscopic? NO; Appearance Urine Clear (Clear); Bilirubin Urine Negative (Negative); Blood Urine Negative (Negative); Color Urine Yellow (Yellow); Glucose Urine UA Negative (Negative); Ketones Urine Negative (Negative); Leukocyte Esterase Ur Negative LEU/UL (Negative); Nitrate Urine Negative (Negative); Protein Urine Negative (Negative); Specific Grav Ur 1.006 (1.001-1.035); Urobilinogen Urine 0.2 mg/dL (<2.0); pH Urine 6.5 (5.0-9.0)
[2024-09-07 16:55] LABS: Influenza A QL RT-PCR Negative (Negative); Influenza B QL RT-PCR Negative (Negative); SARS-CoV-2 RNA PCR Negative (Negative)
[2024-09-07 17:00] LABS: Alanine Aminotransferase 35 U/L (6-35); Albumin Level 4.2 g/dL (3.5-5.1); Alkaline Phosphatase 108 U/L (38-126); Anion Gap 8 mmol/L (4-12); Aspartate Amino Transferase 37 U/L (14-36); Bilirubin,Total 0.4 mg/dL (0.2-1.3); Blood Urea Nitrogen 18 mg/dL (7-17); Calcium 9.2 mg/dL (8.4-10.2); Carbon Dioxide 34 mmol/L (22-30); Chloride 77 mmol/L (98-107); Estimated CRCL calculation 65 ml/min; Estimated Glomerular Filt Rate > 60; Glucose 101 mg/dL (65-110); Potassium 3.2 mmol/L (3.4-5.0); Sodium 119 mmol/L (137-145)
--- NOTE | 2024-09-07 17:11 | PC.NURSE ---
pt linens and depend saturated upon checking depend while doing a straight cath. DARCI Taylor notified, myself and tc Kaur, changed linens, performed pericare, and initiated purewick per order from RN.
[2024-09-07] MEDS: SODIUM CHLORIDE 0.9% IV 1,000 ML 100 ML IV CONT (19:27)
[2024-09-07 19:40] LABS: Anion Gap 7 mmol/L (4-12); Blood Urea Nitrogen 17 mg/dL (7-17); Calcium 8.9 mg/dL (8.4-10.2); Carbon Dioxide 34 mmol/L (22-30); Chloride 79 mmol/L (98-107); Estimated CRCL calculation 70 ml/min; Estimated Glomerular Filt Rate > 60; Glucose 96 mg/dL (65-110); Potassium 3.3 mmol/L (3.4-5.0); Sodium 120 mmol/L (137-145)
[2024-09-07] MEDS: HYDROcodone/acetaminophen (*CRX) 5-325 MG TABLET 1 TAB PO (21:05)
--- NOTE | 2024-09-07 21:37 | PC.NURSE ---
[id number] report received from DARCI Bruce
--- NOTE | 2024-09-07 22:15 | ADMGEN ---
This patient, Celestina Ewing, was admitted to IMU Room 204-01 on 09/07/23 at 2216. Patient/family oriented to hospital policies and general routines including ID bracelet, bed and alarms, visiting hours, pain management, procedures, bathroom and other care routines, personal items, smoking policy, room service/diet, and visiting hours. Information on how to activate the Rapid Response Team has been discussed. Patient/Family are encouraged to report perceived risks to care and to ask questions if they do not understand what they are told or what they should do.
[2024-09-07 22:20] VITALS: PULSE 79
[2024-09-07 22:35] VITALS: BMI 38.7
[2024-09-07 22:37] VITALS: BP 154/75; PULSE 78; RESP 20; O2SAT 99
[2024-09-07 23:24] LABS: Anion Gap 11 mmol/L (4-12); Blood Urea Nitrogen 17 mg/dL (7-17); Calcium 8.7 mg/dL (8.4-10.2); Carbon Dioxide 27 mmol/L (22-30); Chloride 81 mmol/L (98-107); Estimated CRCL calculation 75 ml/min; Estimated Glomerular Filt Rate > 60; Glucose 87 mg/dL (65-110); Potassium 3.3 mmol/L (3.4-5.0); Sodium 119 mmol/L (137-145)
--- NOTE | 2024-09-07 23:41 | P.HP_ITS ---
H&P: HPI History of Present Illness Date/Time: 09/07/24 23:41 Chief Complaint: Fatigued altered mental status Narrative: 73-year-old female who was recently discharged from [facility] with pneumonia presents with weakness and altered mental status. Has a significant history of chronic hyponatremia neurocognitive disorder. On arrival from nursing facility she appeared fatigued A&O x3. Sodium found to be 119. Given 1 L normal saline and placed on normal saline infusion. Patient also reports she has had a cough with green sputum production and generalized body aches. However, not the best historian and seems to take awhile to recall information. When asked what month it is she tells me 2024. Review of Systems Review of Systems: All systems reviewed & are unremarkable except as noted in HPI and below (HPI) ROS unobtainable: Yes unobtainable due to mental status PMFSH Past Medical History Medical History Kidney stone Chronic anemia Chronic respiratory failure with hypoxia, on home oxygen therapy Bipolar disorder Gastroesophageal reflux disease Hyperlipidemia Hypertension Obstructive sleep apnea intolerant to CPAP Left tibial fracture Chronic hyponatremia Shingles Anxiety Depression Gastroparesis Diverticulitis Asthma Epilepsy no longer on medication Seasonal allergies Surgical History Surgical History History of left above knee amputation History of right shoulder replacement History of cholecystectomy History of left knee replacement History of hysterectomy History of open reduction and internal fixation (ORIF) procedure Left tibia and right ankle. History of appendectomy History of tonsillectomy Family History Family History Mother Suicide Depression Heart disease Hypertension Heart failure Sibling Suicide Father Diabetes mellitus Emphysema lung Social History Social History Social History: Surrogate medical decision maker: Martina Rodney, daughter. Code status: Full code. Smoking status: Never smoker Second hand tobacco smoke exposure: No Alcohol intake: never Substance use: never Substance use type: does not use Do You Feel Safe in your Home?: Yes Lack of Transportation: No Lack of Food: Never True Current Housing: I Have Housing Concerned About Future Housing: No Difficulty Paying Gas/Electric Bills: No Difficulty Paying for Meds: No Currently Unemployed: No Education: Decline to Answer Difficulty w/ Childcare or Family Care: No Living arrangements: [facility] Occupation/Education: retired Spiritual care concerns: No Agree to blood products: No Meds Home Medications and Allergies Home Medications ?Medication ?Instructions ?Recorded ?Confirmed ?Type atorvastatin 10 mg tablet 10 mg PO HS 09/09/19 09/07/24 History cholecalciferol (vitamin D3) 10 5,000 unit PO DAILY 09/09/19 09/07/24 History mcg (400 unit) tablet fluticasone propionate 50 2 spray intranasal DAILY 09/09/19 09/07/24 History mcg/actuation nasal spray,suspension pantoprazole 40 mg tablet,delayed 40 mg PO DAILY 09/09/19 09/07/24 History release primidone 50 mg tablet 200 mg PO BID 09/09/19 09/07/24 History vitamin E 268 mg (400 unit) capsule 800 unit PO DAILY 09/09/19 09/07/24 History docusate sodium 100 mg tablet 100 mg PO DAILY PRN Constipation 05/31/20 09/07/24 History spironolactone 25 mg tablet 25 mg PO DAILY 05/31/20 09/07/24 History baclofen 10 mg tablet 10 mg PO TID 02/19/21 09/07/24 History albuterol sulfate 90 mcg/actuation 1 inh inhalation DAILY PRN 04/23/24 09/07/24 History aerosol inhaler sob/wheezing amlodipine 10 mg tablet 10 mg PO DAILY 04/23/24 09/07/24 History bisacodyl 5 mg tablet,delayed 10 mg PO HS PRN Constipation 04/23/24 09/07/24 History release (Dulcolax (bisacodyl)) budesonide-formoterol HFA 160 2 puff inhalation BID 04/23/24 09/07/24 History mcg-4.5 mcg/actuation aerosol inhaler guaifenesin 1,200 mg tablet, 1,200 mg PO BID 04/23/24 09/07/24 History extended release 12 hr (Mucinex) memantine 5 mg tablet 5 mg PO BID 04/23/24 09/07/24 History metoprolol tartrate 100 mg tablet 100 mg PO BID 04/23/24 09/07/24 History ondansetron HCl 4 mg tablet 4 mg PO TID 04/23/24 09/07/24 History polyethylene glycol 3350 17 17 g PO DAILY PRN Constipation 04/23/24 09/07/24 History gram/dose oral powder (Miralax) sodium chloride 0.65 % nasal spray 2 spray intranasal PRN PRN 04/23/24 09/07/24 History aerosol Congestion vitamin B complex 1 tablet PO DAILY 04/23/24 09/07/24 History pregabalin 150 mg capsule (Lyrica) 150 mg PO BID #14 caps 05/04/24 09/07/24 Rx sodium chloride 1,000 mg soluble 1,000 mg PO BID #60 tabs 05/04/24 09/07/24 Rx tablet diclofenac sodium 1 % topical gel 2 g topical BID PRN moderate pain 08/06/24 09/07/24 History (Voltaren Arthritis Pain) (scale score 5-6) isosorbide mononitrate 30 mg 30 mg PO DAILY 08/06/24 09/07/24 History tablet,extended release 24 hr lidocaine 5 % topical patch 2 patch topical DAILY 08/06/24 09/07/24 History (Lidoderm) magnesium hydroxide 400 mg/5 mL 30 ml PO DAILY PRN constipation 08/06/24 09/07/24 History oral suspension (Gentle Laxative (magnesium hydroxide)) hydralazine 10 mg tablet 10 mg PO QID #30 tabs 08/14/24 09/07/24 Rx oxycodone 5 mg tablet 5 mg PO Q4-6H PRN Pain #7 tabs 08/14/24 09/07/24 Rx peg [id number] 1 1 drp EACH EYE QID PRN Dry Eye(S) 08/14/24 09/07/24 Rx %-0.2 %-0.2 % eye drops #30 mL (Artificial Tears ([id number])) clonidine HCl 0.1 mg tablet 0.1 mg PO DAILY 09/07/24 09/07/24 History furosemide 20 mg tablet (Lasix) 20 mg PO BID 09/07/24 09/07/24 History isosorbide dinitrate 30 mg tablet 30 mg PO QID 09/07/24 09/07/24 History lorazepam 0.5 mg tablet 0.5 mg PO Q6H PRN Anxiety 09/07/24 09/07/24 History losartan 100 1 tablet PO DAILY 09/07/24 09/07/24 History mg-hydrochlorothiazide 25 mg tablet rivaroxaban 20 mg tablet (Xarelto) 20 mg PO Q24H 09/07/24 09/07/24 History Allergies Allergy/AdvReac Type Severity Reaction Status Date / Time Fish Containing Products Allergy Severe Dyspnea / Verified 04/23/24 19:11 SOB Iodinated Contrast Media Allergy Intermediate HIVES, RED Verified 04/27/24 08:14 FACE iodine Allergy Unknown Unknown Verified 04/23/24 19:11 Barbiturates Allergy Unknown Verified 04/23/24 19:11 bupivacaine Allergy Unknown Verified 04/23/24 20:51 diazepam (From Valium) Allergy Unknown Verified 04/23/24 19:11 latex Allergy Unknown Verified 04/23/24 19:11 menthol Allergy Unknown Verified 04/23/24 20:51 Sulfa (Sulfonamide Allergy Unknown Verified 04/23/24 19:11 Antibiotics) thiopental (From Pentothal) Allergy Unknown Verified 04/27/24 08:14 wool Allergy Unknown Verified 04/23/24 20:51 Vital Signs Vital Signs - 24 hr 09/07/24 15:37 09/07/24 22:37 Pulse Rate 60 78 Respiratory Rate 10 L 20 Blood Pressure 174/65 H 154/75 H Pulse Oximetry 97 99 Oxygen Delivery Room Air Exam Const: General: comfortable and no acute distress Other: A&O times 2-3 HENMT: Mouth: Yes dry mucous membranes Eyes: Pupils: Equal, round and reactive pupils present Neck: Neck: supple Resp: Effort & Inspection: normal respiratory effort Other: Rhonchi left quezada Cardio: Rate: regular rate Rhythm: regular rhythm GI: GI Palp: Yes Soft to palpation Skin: Other: Tenting of the skin Neuro: Motor exam (neuro): 5/5 motor strength present throughout Extrem: General: edema (1+ pitting edema bilateral lower extremities below the knees. ) H&P: Results Labs Labs: Short CBC 09/07/24 Range/Units 16:12 WBC 6.1 (4.5-10.0) K/mm3 Hgb 13.2 (12.0-15.0) g/dL Hct 37.0 (37.0-47.0) % Plt Count 98 L D (150-375) k/mm3 BMP 09/07/24 09/07/24 09/07/24 16:41 19:20 23:04 Sodium 119 L* 120 L 119 L* Potassium 3.2 L 3.3 L 3.3 L Chloride 77 L 79 L 81 L Carbon Dioxide 34 H 34 H 27 BUN 18 H D 17 17 Creatinine 0.69 L 0.64 L 0.61 L Glucose 101 96 87 Calcium 9.2 8.9 8.7 Liver Function 09/07/24 Range/Units 16:41 Total Bilirubin 0.4 (0.2-1.3) mg/dL AST 37 H (14-36) U/L ALT 35 (6-35) U/L Alkaline Phosphatase 108 (38-126) U/L Albumin 4.2 (3.5-5.1) g/dL Urine 09/07/24 Range/Units 16:30 Urine Color Yellow (Yellow) Urine Appearance Clear (Clear) Urine pH 6.5 (5.0-9.0) Ur Specific [place] 1.006 (1.001-1.035) Urine Protein Negative (Negative) mg/dL Urine Glucose (UA) Negative (Negative) mg/dL Assessment and Plan Assessment and plan (1) Hyponatremia: Code(s): E87.1 - Hypo-osmolality and hyponatremia Status: Acute (2) Altered mental status: Code(s): R41.82 - Altered mental status, unspecified Status: Acute Plan 73-year-old female who was recently discharged from [facility] with pneumonia presents with weakness and altered mental status. Has a significant history of chronic hyponatremia neurocognitive disorder. On arrival from nursing facility she appeared fatigued A&O x3. Sodium found to be 119. Given 1 L normal saline and placed on normal saline i nfusion. Patient also reports she has had a cough with green sputum production and generalized body aches. However, not the best historian and seems to take awhile to recall information. When asked what month it is she tells me 2024. ----- She is minimally altered. She does have a underlying neurocognitive disorder. Appears A&O x2 and fatigued. Appears clinically dehydrated. Head CT without acute abnormalities. Given 1 L normal saline bolus in the ER with sodium improvement from 119-120. On repeat her sodium is 119 again. Continue normal saline infusion and give hypertonic saline bolus. Recheck in 1 hour. At home she is also on spironolactone and hydrochlorothiazide and Lasix which complicates the matter. Fluid restriction of 1 L per 24 hours. Replacing potassium as well. Check magnesium. Vancomycin and meropenem for suspected hospital-acquired pneumonia. ----- Patient wishes to be full code Hospitalist MIPS Advance Care Plan I have confirmed that the patient's Advanced Care Plan is present, code status is documented, or surrogate decision maker is listed in patient medical record.: Yes Medication Reconciliation I have utilized all available resources to obtain, update and review the patients current medications (includes all prescriptions, OTC, herbals, cannabis, and nutritional supplements).: Yes
[2024-09-08] VITALS (23 sets, daily range): BP systolic 148–165; BP diastolic 41–73; PULSE 68–102; RESP 14–20; TEMP 35.9–36.8; O2SAT 91–100
[2024-09-08] MEDS: SODIUM CHLORIDE 3% 100 ML 500 ML IV CONT (00:14)
[2024-09-08] MEDS: SODIUM CHLORIDE 1 GM TABLET PO ×3 (00:15→16:41)
[2024-09-08] MEDS: RIVAROXABAN 20 MG TABLET PO ×2 (00:15→20:40)
[2024-09-08] MEDS: POTASSIUM CHLORIDE 20 MEQ ER TABLET PO (00:29)
[2024-09-08] MEDS: MEROPENEM 1 GM/NS 100 ML 1 GM/100 ML BAG IVPB ×4 (00:30→21:03)
[2024-09-08] MEDS: VANCOMYCIN 1,250 MG/NS 250 ML 1,250 MG/250 ML BAG 166.67 MG IVPB (01:10)
[2024-09-08] MEDS: ONDANSETRON INJ 4 MG/2 ML VIAL IV PUSH (01:10)
[2024-09-08] MEDS: HYDROcodone/acetaminophen (*CRX) 5-325 MG TABLET 1 TAB PO ×2 (01:10→06:42)
[2024-09-08 02:03] LABS: Anion Gap 10 mmol/L (4-12); Blood Urea Nitrogen 15 mg/dL (7-17); Calcium 8.6 mg/dL (8.4-10.2); Carbon Dioxide 29 mmol/L (22-30); Chloride 83 mmol/L (98-107); Estimated CRCL calculation 73 ml/min; Estimated Glomerular Filt Rate > 60; Glucose 77 mg/dL (65-110); Magnesium 1.3 mg/dL (1.6-2.3); Potassium 3.8 mmol/L (3.4-5.0); Sodium 122 mmol/L (137-145)
[2024-09-08 02:46] LABS: Sodium Urine Random 48 meq/L
[2024-09-08] MEDS: VANCOMYCIN 1,000 MG/NS 250 ML 1,000 MG/250 ML BAG 250 MG IVPB (02:49)
[2024-09-08 04:08] LABS: MRSA (PCR) NOT DETECTED (NOT DETECTE)
[2024-09-08 04:46] LABS: Basophils Percent Auto 0.5 % (0.2-1.2); Eosinophils Absolute Auto 0.1 K/mm3 (0-0.3); Eosinophils Percent Auto 0.8 % (0-4.4); Hematocrit 33.8 % (37.0-47.0); Hemoglobin 11.9 g/dL (12.0-15.0); Immature Granulocyte Absolute 0.04 K/mm3 (0.00-0.031); Immature Granulocyte Percent A 0.7 % (0-0.5); Immature Platelet Fraction Pct 8.1 % (0.9-11.2); Lymphocytes Absolute Auto 1.13 K/mm3 (0.9-3.2); Lymphocytes Percent Auto 18.6 % (18.3-44.2); Mean Corpuscular HGB Conc 35.2 g/dl (32-36); Mean Corpuscular Hemoglobin 30.4 pg (26-34); Mean Corpuscular Volume 86.2 fl (80-100); Mean Platelet Volume 11.7 fl (7.4-10.4); Monocytes Absolute Auto 0.5 K/mm3 (0.1-0.6); Monocytes Percent Auto 8.4 % (2.6-8.5); Neutrophils Absolute Auto 4.3 K/mm3 (1.3-6.7); Platelet Count Result 114 k/mm3 (150-375); Red Blood Count 3.92 M/mm3 (4.2-5.4); Red Cell Distribution Width 12.9 % (11.5-14.5); White Blood Count 6.1 K/mm3 (4.5-10.0)
[2024-09-08 05:00] LABS: Anion Gap 9 mmol/L (4-12); Blood Urea Nitrogen 15 mg/dL (7-17); Calcium 8.5 mg/dL (8.4-10.2); Carbon Dioxide 29 mmol/L (22-30); Chloride 85 mmol/L (98-107); Estimated CRCL calculation 76 ml/min; Estimated Glomerular Filt Rate > 60; Glucose 70 mg/dL (65-110); Potassium 3.4 mmol/L (3.4-5.0); Sodium 123 mmol/L (137-145)
[2024-09-08] MEDS: MAGNESIUM SULFATE 3GM/D5W100ML 3 GM/100 ML BAG IVPB (06:34)
[2024-09-08] MEDS: SODIUM CHLORIDE 0.9% IV 1,000 ML 100 ML IV CONT (07:07)
[2024-09-08] MEDS: METOPROLOL TARTRATE 50 MG TAB 100 MG PO ×2 (08:28→20:40)
[2024-09-08] MEDS: amLODIPine BESYLATE 10 MG TABLET PO (08:28)
[2024-09-08] MEDS: MEMANTINE 5 MG TABLET PO ×2 (08:30→20:40)
[2024-09-08] MEDS: PANTOPRAZOLE 40 MG TABLET PO (08:30)
[2024-09-08] MEDS: PRIMIDONE 50 MG TABLET 200 MG PO ×2 (08:30→20:40)
[2024-09-08] MEDS: guaiFENesin 12 HR 600 MG TABCR 1200 MG PO ×2 (08:30→20:41)
[2024-09-08] MEDS: FLUTICASONE PROPIONATE 0.05% NA SPR 16 GM BTL (*BKC) 2 SPRAY NASAL (08:31)
[2024-09-08] MEDS: cloNIDine HCL 0.1 MG TABLET PO (08:31)
[2024-09-08] MEDS: FLUTICASONE/SALMETEROL 115-21 MCG INHALER 1 PUFF 2 PUFF INHALATION ×2 (08:45→21:38)
--- NOTE | 2024-09-08 10:18 | PM.IMPN ---
Progress Note: A&P Assessment and Plan (1) Hyponatremia: Code(s): E87.1 - Hypo-osmolality and hyponatremia Status: Acute Assessment and Plan: Patient's sodium is 123 today. will monitor (2) Altered mental status: Code(s): R41.82 - Altered mental status, unspecified Status: Acute Assessment and Plan: possibly secondary to pneumonia and hyponatremia. Continue with IV antibiotics. monitor sodium. Plan 73-year-old female who was recently discharged from [facility] with pneumonia presents with weakness and altered mental status. Has a significant history of chronic hyponatremia neurocognitive disorder. On arrival from nursing facility she appeared fatigued A&O x3. Sodium found to be 119. Given 1 L normal saline and placed on normal saline infusion. Today sodium is 123. Patient also reports she has had a cough with green sputum production and generalized body aches. However, not the best historian and seems to take awhile to recall information. When asked what month it is she tells me 2024. ----- She is minimally altered. She does have a underlying neurocognitive disorder. Appears A&O x2 and fatigued. Appears clinically dehydrated. Head CT without acute abnormalities. Given 1 L normal saline bolus in the ER with sodium improvement from 119-120. On repeat her sodium is 119 again. Continue normal saline infusion and give hypertonic saline bolus. Recheck in 1 hour. At home she is also on spironolactone and hydrochlorothiazide and Lasix which complicates the matter. Fluid restriction of 1 L per 24 hours. Replacing potassium as well. Check magnesium. Vancomycin and meropenem for suspected hospital-acquired pneumonia. ----- Patient wishes to be full code Subjective Date/time seen: 09/08/24 10:18 Interval history: Patient was seen during morning rounds today. patient cough and shortness of breath is better. No chest pain. No abdominal pain, nausea, vomiting. Mood stable. Review of Systems Review of Systems: All systems reviewed & are unremarkable except as noted in HPI and below (HPI) ROS unobtainable: Yes unobtainable due to mental status Exam Const: General: comfortable and no acute distress Other: A&O times 2-3 HENMT: Mouth: Yes dry mucous membranes Eyes: Pupils: Equal, round and reactive pupils present Neck: Neck: supple Resp: Effort & Inspection: normal respiratory effort Other: Air entry is better, Rhonchi left quezada Cardio: Rate: regular rate Rhythm: regular rhythm Skin: Other: Tenting of the skin Neuro: Cranial nerves: Yes Equal, round and reactive pupils present Motor exam (neuro): 5/5 motor strength present throughout Extrem: General: edema (1+ pitting edema bilateral lower extremities below the knees. ) Objective Data Vital Signs Vital Signs: Vital Signs - 24 hr 09/07/24 15:37 09/07/24 22:20 09/07/24 22:37 Temperature Pulse Rate 60 79 78 Respiratory Rate 10 L 20 Blood Pressure 174/65 H 154/75 H Pulse Oximetry 97 99 Oxygen Delivery Room Air 09/08/24 00:00 09/08/24 00:00 09/08/24 00:16 Temperature 35.9 C L Pulse Rate 78 78 89 Respiratory Rate 20 Blood Pressure 165/66 H Pulse Oximetry 94 Oxygen Delivery Room Air 09/08/24 02:00 09/08/24 03:43 09/08/24 04:00 Temperature 36.4 C Pulse Rate 96 100 99 Respiratory Rate 20 Blood Pressure 164/64 H Pulse Oximetry 91 Oxygen Delivery 09/08/24 04:00 09/08/24 06:00 09/08/24 08:00 Temperature 36.8 C Pulse Rate 99 96 101 H Respiratory Rate 16 Blood Pressure 164/56 H Pulse Oximetry 92 Oxygen Delivery Room Air 09/08/24 08:28 09/08/24 08:48 09/08/24 08:49 Temperature Pulse Rate 102 H 72 Respiratory Rate 14 Blood Pressure Pulse Oximetry 95 Oxygen Delivery Room Air Intake/Output Intake/Output: Intake & Output 09/05/24 09/06/24 09/07/24 09/08/24 23:59 23:59 23:59 23:59 Intake Total 1000 1540 Output Total 1100 Balance 1000 440 Meds/Results Medications: Active Medications Generic Name Dose Route Start Last Admin Trade Name Freq PRN Reason Stop Dose Admin Acetaminophen 650 mg 09/07/24 18:34 Acetaminophen 325 Mg Tablet PO Q4H PRN Mild Pain (1-3) or Fever Hydrocodone Bitart/Acetaminophen 1 tab 09/07/24 18:34 09/08/24 06:42 Hydrocodone/Acetaminophen (*Crx) 5-325 Mg Tablet PO 1 tab Q4H PRN Administration Pain Rated 4-6 Albuterol 1 puff 09/07/24 23:24 Albuterol Sulfate (*Sp) Aerosol 1 Puff INHALATION DAILY PRN sob/wheezing Amlodipine Besylate 10 mg 09/08/24 09:00 09/08/24 08:28 Amlodipine Besylate 10 Mg Tablet PO 10 mg DAILY KELIN Administration Atorvastatin Calcium 10 mg 09/08/24 21:00 Atorvastatin 10 Mg Tablet PO HS KELIN Bisacodyl 10 mg 09/07/24 23:24 Bisacodyl 5 Mg Tablet Ec PO HS PRN Constipation Clonidine HCl 0.1 mg 09/08/24 09:00 09/08/24 08:31 Clonidine Hcl 0.1 Mg Tablet PO 0.1 mg DAILY KELIN Administration Diclofenac Sodium 1 applic 09/07/24 23:24 Diclofenac Sodium 1% 100 Gm Gel (*Bkc) TOPICAL BID PRN moderate pain (scale score 5-6) Docusate Sodium 100 mg 09/07/24 23:24 Docusate Sodium 100 Mg Capsule PO DAILY PRN Constipation Fluticasone Propionate 2 spray 09/08/24 09:00 09/08/24 08:31 Fluticasone Propionate 0.05% Na Spr 16 Gm Btl (*Bkc) NASAL 2 spray DAILY KELIN Administration Guaifenesin 1,200 mg 09/08/24 09:00 09/08/24 08:30 Guaifenesin 12 Hr 600 Mg Tabcr PO 1,200 mg Q12HR KELIN Administration Sodium Chloride 1,000 mls @ 100 mls/hr 09/07/24 18:35 09/08/24 07:07 Normal Saline Iv IV CONT 100 mls/hr .Q10H KELIN Administration Meropenem 1 gm in 100 mls @ 200 mls/hr 09/07/24 23:55 09/08/24 07:08 IVPB Infused Q8HR KELIN Infusion Vancomycin HCl 1,500 mg in 500 mls @ 250 mls/hr 09/08/24 19:00 Vancomycin 1,500 Mg/Ns 500 Ml IVPB Q18H KELIN Memantine 5 mg 09/08/24 09:00 09/08/24 08:30 Memantine 5 Mg Tablet PO 5 mg Q12HR KELIN Administration Metoprolol Tartrate 100 mg 09/08/24 09:00 09/08/24 08:28 Metoprolol Tartrate 50 Mg Tab PO 100 mg Q12HR KELIN Administration Ondansetron HCl 4 mg 09/07/24 18:34 09/08/24 01:10 Ondansetron Inj 4 Mg/2 Ml Vial IV PUSH 4 mg Q4H PRN Administration Nausea Pantoprazole Sodium 40 mg 09/08/24 09:00 09/08/24 08:30 Pantoprazole 40 Mg Tablet PO 40 mg DAILY KELIN Administration Polyethylene Glycol 17 gm 09/07/24 23:24 Polyethylene Glycol 3350 17 Gm Powd.Pack PO DAILY PRN Constipation Primidone 200 mg 09/08/24 09:00 09/08/24 08:30 Primidone 50 Mg Tablet PO 200 mg Q12HR KELIN Administration Rivaroxaban 20 mg 09/07/24 23:25 09/08/24 00:15 Rivaroxaban 20 Mg Tablet PO 20 mg Q24H KELIN Administration Fluticasone/Salmeterol 2 puff 09/08/24 08:00 09/08/24 08:45 Fluticasone/Salmeterol 115-21 Mcg Inhaler 1 Puff INHALATION 2 puff Q12HRT KELIN Administration Sodium Chloride 1 gm 09/07/24 23:30 09/08/24 08:30 Sodium Chloride 1 Gm Tablet PO 1 gm BID KELIN Administration Radiology Results: ITS Impressions Chest X-Ray 09/07/24 16:14 IMPRESSION: 1. Opacities in the left perihilar and infrahilar region which could represent atelectasis or pneumonia. Labs Labs: Laboratory Results - last 24 hr 09/07/24 09/07/24 09/07/24 15:45 16:12 16:30 WBC 6.1 RBC 4.31 Hgb 13.2 Hct 37.0 MCV 85.8 MCH 30.6 MCHC 35.7 RDW 13.1 Plt Count 98 L D MPV 11.6 H Immature Gran % (Auto) 0.5 Neut % (Auto) 67.6 Lymph % (Auto) 22.9 [place] % (Auto) 6.5 Eos % (Auto) 2.3 Baso % (Auto) 0.2 Lymph # (Auto) 1.40 [place] # (Auto) 0.4 Eos # (Auto) 0.1 Baso # (Auto) 0.0 Abs Immat Gran (auto) 0.03 Absolute Neuts (auto) 4.1 Absolute Nucleated RBC 0.000 Nucleated RBC % 0.0 Platelet Estimate Decreased % Immature Plt Fraction 10.6 Schistocytes None seen Sodium Potassium Chloride Carbon Dioxide Anion Gap BUN Creatinine Estim Creat Clear Calc Estimated GFR Glucose POC Capillary Glucose 107 H Calcium Magnesium Total Bilirubin AST ALT Alkaline Phosphatase Total Protein Albumin Procalcitonin Urine Color Yellow Urine Appearance Clear Urine pH 6.5 Ur Specific [place] 1.006 Urine Protein Negative Urine Glucose (UA) Negative Urine Ketones Negative Ur Blood (Man) Negative Urine Nitrate Negative Urine Bilirubin Negative Urine Urobilinogen 0.2 Leukocyte Esterase Rfl Negative Ur Random Sodium Nasal MRSA (PCR) Influenza A (RT-PCR) Negative Influenza B (RT-PCR) Negative SARS-CoV-2 RNA (RT-PCR) Negative 09/07/24 09/07/24 09/07/24 16:41 19:20 23:04 WBC RBC Hgb Hct MCV MCH MCHC RDW Plt Count MPV Immature Gran % (Auto) Neut % (Auto) Lymph % (Auto) [place] % (Auto) Eos % (Auto) Baso % (Auto) Lymph # (Auto) [place] # (Auto) Eos # (Auto) Baso # (Auto) Abs Immat Gran (auto) Absolute Neuts (auto) Absolute Nucleated RBC Nucleated RBC % Platelet Estimate % Immature Plt Fraction Schistocytes Sodium 119 L* 120 L 119 L* Potassium 3.2 L 3.3 L 3.3 L Chloride 77 L 79 L 81 L Carbon Dioxide 34 H 34 H 27 Anion Gap 8 7 11 BUN 18 H D 17 17 Creatinine 0.69 L 0.64 L 0.61 L Estim Creat Clear Calc 65 70 75 Estimated GFR > 60 > 60 > 60 Glucose 101 96 87 POC Capillary Glucose Calcium 9.2 8.9 8.7 Magnesium Total Bilirubin 0.4 AST 37 H ALT 35 Alkaline Phosphatase 108 Total Protein 7.0 Albumin 4.2 Procalcitonin Urine Color Urine Appearance Urine pH Ur Specific [place] Urine Protein Urine Glucose (UA) Urine Ketones Ur Blood (Man) Urine Nitrate Urine Bilirubin Urine Urobilinogen Leukocyte Esterase Rfl Ur Random Sodium Nasal MRSA (PCR) Influenza A (RT-PCR) Influenza B (RT-PCR) SARS-CoV-2 RNA (RT-PCR) 09/07/24 09/08/24 09/08/24 23:05 00:53 01:42 WBC RBC Hgb Hct MCV MCH MCHC RDW Plt Count MPV Immature Gran % (Auto) Neut % (Auto) Lymph % (Auto) [place] % (Auto) Eos % (Auto) Baso % (Auto) Lymph # (Auto) [place] # (Auto) Eos # (Auto) Baso # (Auto) Abs Immat Gran (auto) Absolute Neuts (auto) Absolute Nucleated RBC Nucleated RBC % Platelet Estimate % Immature Plt Fraction Schistocytes Sodium 122 L Potassium 3.8 Chloride 83 L Carbon Dioxide 29 Anion Gap 10 BUN 15 Creatinine 0.63 L Estim Creat Clear Calc 73 Estimated GFR > 60 Glucose 77 POC Capillary Glucose Calcium 8.6 Magnesium 1.3 L Total Bilirubin AST ALT Alkaline Phosphatase Total Protein Albumin Procalcitonin 0.0 Urine Color Urine Appearance Urine pH Ur Specific [place] Urine Protein Urine Glucose (UA) Urine Ketones Ur Blood (Man) Urine Nitrate Urine Bilirubin Urine Urobilinogen Leukocyte Esterase Rfl Ur Random Sodium 48 Nasal MRSA (PCR) Influenza A (RT-PCR) Influenza B (RT-PCR) SARS-CoV-2 RNA (RT-PCR) 09/08/24 09/08/24 02:48 03:56 WBC 6.1 RBC 3.92 L Hgb 11.9 L Hct 33.8 L MCV 86.2 MCH 30.4 MCHC 35.2 RDW 12.9 Plt Count 114 L MPV 11.7 H Immature Gran % (Auto) 0.7 H Neut % (Auto) 71.0 Lymph % (Auto) 18.6 [place] % (Auto) 8.4 Eos % (Auto) 0.8 Baso % (Auto) 0.5 Lymph # (Auto) 1.13 [place] # (Auto) 0.5 Eos # (Auto) 0.1 Baso # (Auto) 0.0 Abs Immat Gran (auto) 0.04 H Absolute Neuts (auto) 4.3 Absolute Nucleated RBC 0.000 Nucleated RBC % 0.0 Platelet Estimate % Immature Plt Fraction 8.1 Schistocytes Sodium 123 L Potassium 3.4 Chloride 85 L Carbon Dioxide 29 Anion Gap 9 BUN 15 Creatinine 0.60 L Estim Creat Clear Calc 76 Estimated GFR > 60 Glucose 70 POC Capillary Glucose Calcium 8.5 Magnesium Total Bilirubin AST ALT Alkaline Phosphatase Total Protein Albumin Procalcitonin Urine Color Urine Appearance Urine pH Ur Specific [place] Urine Protein Urine Glucose (UA) Urine Ketones Ur Blood (Man) Urine Nitrate Urine Bilirubin Urine Urobilinogen Leukocyte Esterase Rfl Ur Random Sodium Nasal MRSA (PCR) Not detected Influenza A (RT-PCR) Influenza B (RT-PCR) SARS-CoV-2 RNA (RT-PCR)
--- NOTE | 2024-09-08 14:10 | PCPTNOTE ---
Therapist attempted evaluation [id number], patient reports she is a uriel at baseline to her wheelchair. No skilled therapy needs at this time.
--- NOTE | 2024-09-08 14:51 | PC.NURSE ---
On 09/08/24, the student, [Cristine Carballo], provided care and completed [facility] documentation on this patient. I have reviewed the student's documentation and agree with the findings.
[2024-09-08] MEDS: ATORVASTATIN 10 MG TABLET PO (20:40)
[2024-09-08] MEDS: SODIUM CHLORIDE 0.9% IV 1,000 ML 50 ML IV CONT (20:41)
[2024-09-08] MEDS: DOXYCYCLINE HYCLATE 100 MG TABLET PO (20:41)
[2024-09-09] VITALS (19 sets, daily range): BP systolic 171–208; BP diastolic 62–95; PULSE 75–100; RESP 16–24; TEMP 36.6–37.1; O2SAT 94–100
[2024-09-09] MEDS: MEROPENEM 1 GM/NS 100 ML 1 GM/100 ML BAG IVPB ×3 (05:01→21:32)
[2024-09-09 05:41] LABS: Alanine Aminotransferase 32 U/L (6-35); Albumin Level 3.5 g/dL (3.5-5.1); Alkaline Phosphatase 98 U/L (38-126); Anion Gap 12 mmol/L (4-12); Aspartate Amino Transferase 37 U/L (14-36); Bilirubin,Total 0.4 mg/dL (0.2-1.3); Blood Urea Nitrogen 9 mg/dL (7-17); Calcium 8.8 mg/dL (8.4-10.2); Carbon Dioxide 25 mmol/L (22-30); Chloride 92 mmol/L (98-107); Estimated CRCL calculation 84 ml/min; Estimated Glomerular Filt Rate > 60; Glucose 62 mg/dL (65-110); Magnesium 1.9 mg/dL (1.6-2.3); Potassium 3.4 mmol/L (3.4-5.0); Sodium 129 mmol/L (137-145)
[2024-09-09 07:08] LABS: Glucose Point of Care 57 mg/dl (65-105)
[2024-09-09 07:08] LABS: Glucose Point of Care 79 mg/dl (65-105)
[2024-09-09] MEDS: FLUTICASONE/SALMETEROL 115-21 MCG INHALER 1 PUFF 2 PUFF INHALATION ×2 (08:05→20:25)
[2024-09-09] MEDS: cloNIDine HCL 0.1 MG TABLET PO (09:38)
[2024-09-09] MEDS: amLODIPine BESYLATE 10 MG TABLET PO (09:38)
[2024-09-09] MEDS: SODIUM CHLORIDE 1 GM TABLET PO ×2 (09:39→17:31)
[2024-09-09] MEDS: DOXYCYCLINE HYCLATE 100 MG TABLET PO ×2 (09:39→21:31)
[2024-09-09] MEDS: MEMANTINE 5 MG TABLET PO ×2 (09:39→21:32)
[2024-09-09] MEDS: guaiFENesin 12 HR 600 MG TABCR 1200 MG PO ×2 (09:39→21:31)
[2024-09-09] MEDS: PANTOPRAZOLE 40 MG TABLET PO (09:39)
[2024-09-09] MEDS: PRIMIDONE 50 MG TABLET 200 MG PO ×2 (09:40→21:31)
[2024-09-09] MEDS: METOPROLOL TARTRATE 50 MG TAB 100 MG PO ×2 (09:40→21:31)
[2024-09-09] MEDS: FLUTICASONE PROPIONATE 0.05% NA SPR 16 GM BTL (*BKC) 2 SPRAY NASAL (09:47)
[2024-09-09 09:56] LABS: Glucose Point of Care 91 mg/dl (65-105)
--- NOTE | 2024-09-09 12:48 | P.PNIM_ITS ---
Progress Note: A&P Assessment and Plan (1) Hyponatremia: Code(s): E87.1 - Hypo-osmolality and hyponatremia Status: Acute Assessment and Plan: Patient's sodium is 129 today. will monitor (2) Altered mental status: Code(s): R41.82 - Altered mental status, unspecified Status: Acute Assessment and Plan: possibly secondary to pneumonia and hyponatremia. Continue with IV antibiotics. monitor sodium. Plan 73-year-old female who was recently discharged from [facility] with pneumonia presents with weakness and altered mental status. Has a significant history of chronic hyponatremia neurocognitive disorder. On arrival from nursing facility she appeared fatigued A&O x3. Sodium found to be 119. Given 1 L normal saline and placed on normal saline infusion. Today sodium is 123. Patient also reports she has had a cough with green sputum production and generalized body aches. However, not the best historian and seems to take awhile to recall information. When asked what month it is she tells me 2024. ----- She is minimally altered. She does have a underlying neurocognitive disorder. Appears A&O x2 and fatigued. Appears clinically dehydrated. Head CT without acute abnormalities. Given 1 L normal saline bolus in the ER with sodium improvement from 119-120. On repeat her sodium is 119 again. Continue normal saline infusion and give hypertonic saline bolus. Recheck in 1 hour. At home she is also on spironolactone and hydrochlorothiazide and Lasix which complicates the matter. Fluid restriction of 1 L per 24 hours. Replacing potassium as well. Check magnesium. Vancomycin and meropenem for suspected hospital-acquired pneumonia. ----- Patient wishes to be full code Subjective Date/time seen: 09/09/24 12:48 Interval history: Patient was seen during morning rounds today. No new overnight complaints. Patient cough and shortness of breath is better. No chest pain. No abdominal pain, nausea, vomiting. Mood stable. Review of Systems Review of Systems: All systems reviewed & are unremarkable except as noted in HPI and below (HPI) ROS unobtainable: Yes unobtainable due to mental status Exam Const: General: comfortable and no acute distress Other: A&O times 2-3 HENMT: Mouth: Yes dry mucous membranes Eyes: Pupils: Equal, round and reactive pupils present Neck: Neck: supple Resp: Effort & Inspection: normal respiratory effort Other: Air entry is better, Rhonchi left quezada Cardio: Rate: regular rate Rhythm: regular rhythm Skin: Other: Tenting of the skin Neuro: Cranial nerves: Yes Equal, round and reactive pupils present Motor exam (neuro): 5/5 motor strength present throughout Extrem: General: edema (1+ pitting edema bilateral lower extremities below the knees. ) Objective Data Vital Signs Vital Signs: Vital Signs - 24 hr 09/08/24 14:00 09/08/24 15:35 09/08/24 16:00 Temperature 36.8 C Pulse Rate 77 81 80 Respiratory Rate 18 Blood Pressure 148/41 H Pulse Oximetry 100 Oxygen Delivery 09/08/24 18:00 09/08/24 20:00 09/08/24 20:00 Temperature Pulse Rate 86 89 Respiratory Rate Blood Pressure Pulse Oximetry Oxygen Delivery Room Air 09/08/24 20:40 09/08/24 20:49 09/08/24 21:42 Temperature 36.7 C Pulse Rate 88 90 71 Respiratory Rate 18 Blood Pressure 152/62 H Pulse Oximetry 92 94 Oxygen Delivery Room Air 09/08/24 22:00 09/08/24 23:52 09/09/24 00:00 Temperature 36.6 C Pulse Rate 74 78 Respiratory Rate 18 Blood Pressure 162/73 H Pulse Oximetry 95 Oxygen Delivery Room Air 09/09/24 00:00 09/09/24 01:52 09/09/24 03:34 Temperature 36.6 C Pulse Rate 75 77 80 Respiratory Rate 18 Blood Pressure 179/62 H Pulse Oximetry 100 Oxygen Delivery 09/09/24 03:51 09/09/24 04:00 09/09/24 05:36 Temperature Pulse Rate 78 84 Respiratory Rate Blood Pressure Pulse Oximetry Oxygen Delivery Room Air 09/09/24 08:06 09/09/24 09:00 09/09/24 10:35 Temperature Pulse Rate Respiratory Rate Blood Pressure 204/95 H 179/67 H Pulse Oximetry 95 Oxygen Delivery Room Air 09/09/24 12:00 Temperature 37.1 C Pulse Rate 78 Respiratory Rate 24 H Blood Pressure 179/66 H Pulse Oximetry 94 Oxygen Delivery Intake/Output Intake/Output: Intake & Output 09/06/24 09/07/24 09/08/24 09/09/24 23:59 23:59 23:59 23:59 Intake Total 1000 2747.5 240 Output Total 2300 400 Balance 1000 447.5 -160 Meds/Results Medications: Active Medications Generic Name Dose Route Start Last Admin Trade Name Freq PRN Reason Stop Dose Admin Acetaminophen 650 mg 09/07/24 18:34 Acetaminophen 325 Mg Tablet PO Q4H PRN Mild Pain (1-3) or Fever Hydrocodone Bitart/Acetaminophen 1 tab 09/07/24 18:34 09/08/24 06:42 Hydrocodone/Acetaminophen (*Crx) 5-325 Mg Tablet PO 1 tab Q4H PRN Administration Pain Rated 4-6 Albuterol 1 puff 09/07/24 23:24 Albuterol Sulfate (*Sp) Aerosol 1 Puff INHALATION DAILY PRN sob/wheezing Amlodipine Besylate 10 mg 09/08/24 09:00 09/09/24 09:38 Amlodipine Besylate 10 Mg Tablet PO 10 mg DAILY KELIN Administration Atorvastatin Calcium 10 mg 09/08/24 21:00 09/08/24 20:40 Atorvastatin 10 Mg Tablet PO 10 mg HS KELIN Administration Bisacodyl 10 mg 09/07/24 23:24 Bisacodyl 5 Mg Tablet Ec PO HS PRN Constipation Clonidine HCl 0.1 mg 09/08/24 09:00 09/09/24 09:38 Clonidine Hcl 0.1 Mg Tablet PO 0.1 mg DAILY KELIN Administration Dextrose 12.5 gm 09/09/24 06:51 Dextrose 50% 25 Gm/50 Ml Syringe IV PUSH PRN PRN Hypoglycemia Protocol Diclofenac Sodium 1 applic 09/07/24 23:24 Diclofenac Sodium 1% 100 Gm Gel (*Bkc) TOPICAL BID PRN moderate pain (scale score 5-6) Docusate Sodium 100 mg 09/07/24 23:24 Docusate Sodium 100 Mg Capsule PO DAILY PRN Constipation Doxycycline Hyclate 100 mg 09/08/24 21:00 09/09/24 09:39 Doxycycline Hyclate 100 Mg Tablet PO 09/13/24 09:01 100 mg Q12HR KELIN Administration Fluticasone Propionate 2 spray 09/08/24 09:00 09/09/24 09:47 Fluticasone Propionate 0.05% Na Spr 16 Gm Btl (*Bkc) NASAL 2 spray DAILY KELIN Administration Glucagon 1 mg 09/09/24 06:51 Glucagon For Inj 1 Mg Vial IM PRN PRN Hypoglycemia Protocol Glucose 15 gm 09/09/24 06:51 Glucose Oral Gel 15 Gm Of Glucse In 37.5 Gm Tube PO PRN PRN Hypoglycemia Protocol Guaifenesin 1,200 mg 09/08/24 09:00 09/09/24 09:39 Guaifenesin 12 Hr 600 Mg Tabcr PO 1,200 mg Q12HR KELIN Administration Sodium Chloride 1,000 mls @ 50 mls/hr 09/07/24 18:35 09/08/24 20:41 Normal Saline Iv IV CONT 50 mls/hr .Q20H KELIN Administration Meropenem 1 gm in 100 mls @ 200 mls/hr 09/07/24 23:55 09/09/24 05:01 IVPB 200 mls/hr Q8HR KELIN Administration Dextrose 1,000 mls @ 100 mls/hr 09/09/24 06:51 Dextrose 5% 1,000 Ml IVPB PRN PRN Hypoglycemia Protocol Memantine 5 mg 09/08/24 09:00 09/09/24 09:39 Memantine 5 Mg Tablet PO 5 mg Q12HR KELIN Administration Metoprolol Tartrate 100 mg 09/08/24 09:00 09/09/24 09:40 Metoprolol Tartrate 50 Mg Tab PO 100 mg Q12HR KELIN Administration Ondansetron HCl 4 mg 09/07/24 18:34 09/08/24 01:10 Ondansetron Inj 4 Mg/2 Ml Vial IV PUSH 4 mg Q4H PRN Administration Nausea Pantoprazole Sodium 40 mg 09/08/24 09:00 09/09/24 09:39 Pantoprazole 40 Mg Tablet PO 40 mg DAILY KELIN Administration Polyethylene Glycol 17 gm 09/07/24 23:24 Polyethylene Glycol 3350 17 Gm Powd.Pack PO DAILY PRN Constipation Primidone 200 mg 09/08/24 09:00 09/09/24 09:40 Primidone 50 Mg Tablet PO 200 mg Q12HR KELIN Administration Rivaroxaban 20 mg 09/08/24 22:00 09/08/24 20:40 Rivaroxaban 20 Mg Tablet PO 20 mg Q24H KELIN Administration Fluticasone/Salmeterol 2 puff 09/08/24 08:00 09/09/24 08:05 Fluticasone/Salmeterol 115-21 Mcg Inhaler 1 Puff INHALATION 2 puff Q12HRT KELIN Administration Sodium Chloride 1 gm 09/07/24 23:30 09/09/24 09:39 Sodium Chloride 1 Gm Tablet PO 1 gm BID KELIN Administration Radiology Results: ITS Impressions Chest X-Ray 09/07/24 16:14 IMPRESSION: 1. Opacities in the left perihilar and infrahilar region which could represent atelectasis or pneumonia. Labs Labs: Laboratory Results - last 24 hr 09/09/24 09/09/24 09/09/24 04:54 06:40 07:03 Sodium 129 L Potassium 3.4 Chloride 92 L Carbon Dioxide 25 Anion Gap 12 BUN 9 D Creatinine 0.53 L Estim Creat Clear Calc 84 Estimated GFR > 60 Glucose 62 L POC Capillary Glucose 57 L* 79 Calcium 8.8 Magnesium 1.9 Total Bilirubin 0.4 AST 37 H ALT 32 Alkaline Phosphatase 98 Total Protein 6.0 L Albumin 3.5 TSH 4.700 H 09/09/24 09:53 Sodium Potassium Chloride Carbon Dioxide Anion Gap BUN Creatinine Estim Creat Clear Calc Estimated GFR Glucose POC Capillary Glucose 91 Calcium Magnesium Total Bilirubin AST ALT Alkaline Phosphatase Total Protein Albumin TSH
[2024-09-09 12:50] LABS: Glucose Point of Care 161 mg/dl (65-105)
[2024-09-09] MEDS: cloNIDine HCL 0.2 MG TABLET PO (17:31)
[2024-09-09] MEDS: SODIUM CHLORIDE 0.9% IV 1,000 ML 50 ML IV CONT (17:36)
[2024-09-09 19:21] LABS: Glucose Point of Care 131 mg/dl (65-105)
[2024-09-09] MEDS: ATORVASTATIN 10 MG TABLET PO (21:32)
[2024-09-09] MEDS: RIVAROXABAN 20 MG TABLET PO (21:32)
[2024-09-09 23:45] LABS: Glucose Point of Care 113 mg/dl (65-105)
[2024-09-10] VITALS (18 sets, daily range): BP systolic 156–199; BP diastolic 60–92; PULSE 67–100; RESP 16–24; TEMP 36.4–37.1; O2SAT 91–96
[2024-09-10] MEDS: MEROPENEM 1 GM/NS 100 ML 1 GM/100 ML BAG IVPB ×3 (05:24→21:15)
[2024-09-10 05:25] LABS: Alanine Aminotransferase 30 U/L (6-35); Albumin Level 3.4 g/dL (3.5-5.1); Alkaline Phosphatase 85 U/L (38-126); Anion Gap 9 mmol/L (4-12); Aspartate Amino Transferase 39 U/L (14-36); Bilirubin,Total 0.6 mg/dL (0.2-1.3); Blood Urea Nitrogen 10 mg/dL (7-17); Calcium 8.7 mg/dL (8.4-10.2); Carbon Dioxide 26 mmol/L (22-30); Chloride 96 mmol/L (98-107); Estimated CRCL calculation 91 ml/min; Estimated Glomerular Filt Rate > 60; Glucose 99 mg/dL (65-110); Potassium 3.1 mmol/L (3.4-5.0); Sodium 131 mmol/L (137-145)
[2024-09-10 06:18] LABS: Glucose Point of Care 96 mg/dl (65-105)
[2024-09-10] MEDS: FLUTICASONE/SALMETEROL 115-21 MCG INHALER 1 PUFF 2 PUFF INHALATION ×2 (08:00→21:08)
[2024-09-10 09:00] LABS: Glucose Point of Care 221 mg/dl (65-105)
--- NOTE | 2024-09-10 09:05 | PM.IMPN ---
Progress Note: A&P Assessment and Plan (1) Hyponatremia: Code(s): E87.1 - Hypo-osmolality and hyponatremia Status: Acute Assessment and Plan: Patient's sodium is 131 today. will monitor (2) Altered mental status: Code(s): R41.82 - Altered mental status, unspecified Status: Acute Assessment and Plan: possibly secondary to pneumonia and hyponatremia. Continue with IV antibiotics. monitor sodium. Patient mental status has improved and almost back to normal . (3) Hypokalemia: Code(s): E87.6 - Hypokalemia Status: Acute Assessment and Plan: Potassium is 3.1. Replace and monitor. Plan 73-year-old female who was recently discharged from [facility] with pneumonia presents with weakness and altered mental status. Has a significant history of chronic hyponatremia neurocognitive disorder. On arrival from nursing facility she appeared fatigued A&O x3. Sodium found to be 119. Given 1 L normal saline and placed on normal saline infusion. Today sodium is 131. Patient also reports she has had a cough with green sputum production and generalized body aches. However, not the best historian and seems to take awhile to recall information. When asked what month it is she tells me 2024. ----- She is minimally altered. She does have a underlying neurocognitive disorder. Appears A&O x2 and fatigued. Appears clinically dehydrated. Head CT without acute abnormalities. Given 1 L normal saline bolus in the ER with sodium improvement from 119-120. On repeat her sodium is 119 again. Continue normal saline infusion and give hypertonic saline bolus. Recheck in 1 hour. At home she is also on spironolactone and hydrochlorothiazide and Lasix which complicates the matter. Fluid restriction of 1 L per 24 hours. Replacing potassium as well. Check magnesium. Vancomycin and meropenem for suspected hospital-acquired pneumonia. ----- Patient wishes to be full code Subjective Date/time seen: 09/10/24 09:05 Interval history: Patient was seen during morning rounds today. Feeling much better. Patient cough and shortness of breath is better. No chest pain. No abdominal pain, nausea, vomiting. Mood stable. Review of Systems Review of Systems: All systems reviewed & are unremarkable except as noted in HPI and below (HPI) ROS unobtainable: Yes unobtainable due to mental status Exam Const: General: comfortable and no acute distress Other: A&O times 2-3 HENMT: Mouth: Yes dry mucous membranes Eyes: Pupils: Equal, round and reactive pupils present Neck: Neck: supple Resp: Effort & Inspection: normal respiratory effort Other: Air entry is better, Rhonchi left quezada Cardio: Rate: regular rate Rhythm: regular rhythm Skin: Other: Tenting of the skin Neuro: Cranial nerves: Yes Equal, round and reactive pupils present Motor exam (neuro): 5/5 motor strength present throughout Extrem: General: edema (1+ pitting edema bilateral lower extremities below the knees. ) Objective Data Vital Signs Vital Signs: Vital Signs - 24 hr 09/09/24 10:00 09/09/24 10:35 09/09/24 12:00 Temperature 37.1 C Pulse Rate 94 78 Respiratory Rate 24 H Blood Pressure 179/67 H 179/66 H Pulse Oximetry 94 Oxygen Delivery Fraction of Inspired Oxygen 09/09/24 12:00 09/09/24 12:00 09/09/24 14:00 Temperature Pulse Rate 80 96 Respiratory Rate Blood Pressure Pulse Oximetry Oxygen Delivery Room Air Fraction of Inspired Oxygen 09/09/24 16:00 09/09/24 16:00 09/09/24 16:00 Temperature 36.9 C Pulse Rate 97 95 Respiratory Rate 16 Blood Pressure 208/80 H Pulse Oximetry 96 Oxygen Delivery Room Air Fraction of Inspired Oxygen 09/09/24 18:00 09/09/24 20:00 09/09/24 20:00 Temperature Pulse Rate 100 94 Respiratory Rate Blood Pressure Pulse Oximetry Oxygen Delivery Room Air Fraction of Inspired Oxygen 09/09/24 21:26 09/09/24 21:31 09/09/24 22:00 Temperature 36.8 C Pulse Rate 95 98 97 Respiratory Rate 16 Blood Pressure 187/80 H Pulse Oximetry 100 Oxygen Delivery Fraction of Inspired Oxygen 09/09/24 23:44 09/10/24 00:00 09/10/24 00:00 Temperature 36.7 C Pulse Rate 78 81 Respiratory Rate 16 Blood Pressure 171/74 H Pulse Oximetry 95 Oxygen Delivery Room Air Fraction of Inspired Oxygen 09/10/24 02:00 09/10/24 03:30 09/10/24 03:50 Temperature 36.6 C Pulse Rate 77 83 Respiratory Rate 16 Blood Pressure 156/92 H Pulse Oximetry 92 Oxygen Delivery Room Air Fraction of Inspired Oxygen 09/10/24 04:00 09/10/24 06:00 09/10/24 08:00 Temperature Pulse Rate 80 82 Respiratory Rate Blood Pressure Pulse Oximetry 96 Oxygen Delivery Room Air Fraction of Inspired Oxygen 21 09/10/24 08:00 09/10/24 08:00 Temperature 36.8 C Pulse Rate 98 88 Respiratory Rate 16 24 H Blood Pressure 199/63 H Pulse Oximetry 91 Oxygen Delivery Fraction of Inspired Oxygen Intake/Output Intake/Output: Intake & Output 09/07/24 09/08/24 09/09/24 09/10/24 23:59 23:59 23:59 23:59 Intake Total 1000 2747.5 2510 100 Output Total 2300 900 1300 Balance 1000 447.5 1610 -1200 Meds/Results Medications: Active Medications Generic Name Dose Route Start Last Admin Trade Name Freq PRN Reason Stop Dose Admin Acetaminophen 650 mg 09/07/24 18:34 Acetaminophen 325 Mg Tablet PO Q4H PRN Mild Pain (1-3) or Fever Hydrocodone Bitart/Acetaminophen 1 tab 09/07/24 18:34 09/08/24 06:42 Hydrocodone/Acetaminophen (*Crx) 5-325 Mg Tablet PO 1 tab Q4H PRN Administration Pain Rated 4-6 Albuterol 1 puff 09/07/24 23:24 Albuterol Sulfate (*Sp) Aerosol 1 Puff INHALATION DAILY PRN sob/wheezing Amlodipine Besylate 10 mg 09/08/24 09:00 09/09/24 09:38 Amlodipine Besylate 10 Mg Tablet PO 10 mg DAILY KELIN Administration Atorvastatin Calcium 10 mg 09/08/24 21:00 09/09/24 21:32 Atorvastatin 10 Mg Tablet PO 10 mg HS KELIN Administration Bisacodyl 10 mg 09/07/24 23:24 Bisacodyl 5 Mg Tablet Ec PO HS PRN Constipation Clonidine HCl 0.1 mg 09/08/24 09:00 09/09/24 09:38 Clonidine Hcl 0.1 Mg Tablet PO 0.1 mg DAILY KELIN Administration Dextrose 12.5 gm 09/09/24 06:51 Dextrose 50% 25 Gm/50 Ml Syringe IV PUSH PRN PRN Hypoglycemia Protocol Diclofenac Sodium 1 applic 09/07/24 23:24 Diclofenac Sodium 1% 100 Gm Gel (*Bkc) TOPICAL BID PRN moderate pain (scale score 5-6) Docusate Sodium 100 mg 09/07/24 23:24 Docusate Sodium 100 Mg Capsule PO DAILY PRN Constipation Doxycycline Hyclate 100 mg 09/08/24 21:00 09/09/24 21:31 Doxycycline Hyclate 100 Mg Tablet PO 09/13/24 09:01 100 mg Q12HR KELIN Administration Fluticasone Propionate 2 spray 09/08/24 09:00 09/09/24 09:47 Fluticasone Propionate 0.05% Na Spr 16 Gm Btl (*Bkc) NASAL 2 spray DAILY KELIN Administration Glucagon 1 mg 09/09/24 06:51 Glucagon For Inj 1 Mg Vial IM PRN PRN Hypoglycemia Protocol Glucose 15 gm 09/09/24 06:51 Glucose Oral Gel 15 Gm Of Glucse In 37.5 Gm Tube PO PRN PRN Hypoglycemia Protocol Guaifenesin 1,200 mg 09/08/24 09:00 09/09/24 21:31 Guaifenesin 12 Hr 600 Mg Tabcr PO 1,200 mg Q12HR KELIN Administration Sodium Chloride 1,000 mls @ 50 mls/hr 09/07/24 18:35 09/09/24 17:36 Normal Saline Iv IV CONT 50 mls/hr .Q20H KELIN Administration Meropenem 1 gm in 100 mls @ 200 mls/hr 09/07/24 23:55 09/10/24 05:24 IVPB 200 mls/hr Q8HR KELIN Administration Dextrose 1,000 mls @ 100 mls/hr 09/09/24 06:51 Dextrose 5% 1,000 Ml IVPB PRN PRN Hypoglycemia Protocol Memantine 5 mg 09/08/24 09:00 09/09/24 21:32 Memantine 5 Mg Tablet PO 5 mg Q12HR KELIN Administration Metoprolol Tartrate 100 mg 09/08/24 09:00 09/09/24 21:31 Metoprolol Tartrate 50 Mg Tab PO 100 mg Q12HR KELIN Administration Ondansetron HCl 4 mg 09/07/24 18:34 09/08/24 01:10 Ondansetron Inj 4 Mg/2 Ml Vial IV PUSH 4 mg Q4H PRN Administration Nausea Pantoprazole Sodium 40 mg 09/08/24 09:00 09/09/24 09:39 Pantoprazole 40 Mg Tablet PO 40 mg DAILY KELIN Administration Polyethylene Glycol 17 gm 09/07/24 23:24 Polyethylene Glycol 3350 17 Gm Powd.Pack PO DAILY PRN Constipation Potassium Chloride 40 meq 09/10/24 09:05 Potassium Chloride 20 Meq Er Tablet PO 09/10/24 09:06 ONCE ONE Primidone 200 mg 09/08/24 09:00 09/09/24 21:31 Primidone 50 Mg Tablet PO 200 mg Q12HR KELIN Administration Rivaroxaban 20 mg 09/08/24 22:00 09/09/24 21:32 Rivaroxaban 20 Mg Tablet PO 20 mg Q24H KELIN Administration Fluticasone/Salmeterol 2 puff 09/08/24 08:00 09/10/24 08:00 Fluticasone/Salmeterol 115-21 Mcg Inhaler 1 Puff INHALATION 2 puff Q12HRT KELIN Administration Sodium Chloride 1 gm 09/07/24 23:30 09/09/24 17:31 Sodium Chloride 1 Gm Tablet PO 1 gm BID KELIN Administration Radiology Results: ITS Impressions Chest X-Ray 09/10/24 08:54 IMPRESSION: Chronic interstitial change, without focal infiltrate or effusion. Labs Labs: Laboratory Results - last 24 hr 09/09/24 09/09/24 09/09/24 09:53 12:47 19:11 Sodium Potassium Chloride Carbon Dioxide Anion Gap BUN Creatinine Estim Creat Clear Calc Estimated GFR Glucose POC Capillary Glucose 91 161 H 131 H Calcium Total Bilirubin AST ALT Alkaline Phosphatase Total Protein Albumin 09/09/24 09/10/24 09/10/24 23:38 04:40 06:15 Sodium 131 L Potassium 3.1 L Chloride 96 L Carbon Dioxide 26 Anion Gap 9 BUN 10 Creatinine 0.48 L Estim Creat Clear Calc 91 Estimated GFR > 60 Glucose 99 POC Capillary Glucose 113 H 96 Calcium 8.7 Total Bilirubin 0.6 AST 39 H ALT 30 Alkaline Phosphatase 85 Total Protein 6.0 L Albumin 3.4 L 09/10/24 08:53 Sodium Potassium Chloride Carbon Dioxide Anion Gap BUN Creatinine Estim Creat Clear Calc Estimated GFR Glucose POC Capillary Glucose 221 H Calcium Total Bilirubin AST ALT Alkaline Phosphatase Total Protein Albumin
[2024-09-10] MEDS: MEMANTINE 5 MG TABLET PO ×2 (09:09→21:16)
[2024-09-10] MEDS: amLODIPine BESYLATE 10 MG TABLET PO (09:09)
[2024-09-10] MEDS: DOXYCYCLINE HYCLATE 100 MG TABLET PO ×2 (09:09→21:16)
[2024-09-10] MEDS: cloNIDine HCL 0.1 MG TABLET PO (09:10)
[2024-09-10] MEDS: guaiFENesin 12 HR 600 MG TABCR 1200 MG PO ×2 (09:10→21:16)
[2024-09-10] MEDS: METOPROLOL TARTRATE 50 MG TAB 100 MG PO ×2 (09:10→21:16)
[2024-09-10] MEDS: SODIUM CHLORIDE 1 GM TABLET PO ×2 (09:11→18:18)
[2024-09-10] MEDS: PANTOPRAZOLE 40 MG TABLET PO (09:11)
[2024-09-10] MEDS: PRIMIDONE 50 MG TABLET 200 MG PO ×2 (09:11→21:15)
[2024-09-10] MEDS: FLUTICASONE PROPIONATE 0.05% NA SPR 16 GM BTL (*BKC) 2 SPRAY NASAL (09:12)
[2024-09-10] MEDS: POTASSIUM CHLORIDE 20 MEQ ER TABLET 40 MEQ PO (09:22)
[2024-09-10] MEDS: SODIUM CHLORIDE 0.9% IV 1,000 ML 50 ML IV CONT (14:55)
[2024-09-10 20:32] LABS: Glucose Point of Care 111 mg/dl (65-105)
[2024-09-10] MEDS: RIVAROXABAN 20 MG TABLET PO (21:16)
[2024-09-10] MEDS: ATORVASTATIN 10 MG TABLET PO (21:16)
[2024-09-10 23:27] LABS: Glucose Point of Care 91 mg/dl (65-105)
[2024-09-11] VITALS (16 sets, daily range): BP systolic 156–197; BP diastolic 70–89; PULSE 12–116; RESP 8–22; TEMP 36.8–37.3; O2SAT 93–98
[2024-09-11 05:35] LABS: Alanine Aminotransferase 35 U/L (6-35); Alkaline Phosphatase 116 U/L (38-126); Anion Gap 11 mmol/L (4-12); Aspartate Amino Transferase 43 U/L (14-36); Bilirubin,Total 0.8 mg/dL (0.2-1.3); Blood Urea Nitrogen 11 mg/dL (7-17); Calcium 8.7 mg/dL (8.4-10.2); Carbon Dioxide 27 mmol/L (22-30); Chloride 95 mmol/L (98-107); Estimated CRCL calculation 93 ml/min; Estimated Glomerular Filt Rate > 60; Glucose 106 mg/dL (65-110); Potassium 2.9 mmol/L (3.4-5.0); Sodium 133 mmol/L (137-145)
[2024-09-11 06:14] LABS: Glucose Point of Care 112 mg/dl (65-105)
[2024-09-11] MEDS: MEROPENEM 1 GM/NS 100 ML 1 GM/100 ML BAG IVPB (06:15)
[2024-09-11] MEDS: FLUTICASONE/SALMETEROL 115-21 MCG INHALER 1 PUFF 2 PUFF INHALATION ×2 (07:35→20:22)
[2024-09-11] MEDS: PANTOPRAZOLE 40 MG TABLET PO (09:25)
[2024-09-11] MEDS: METOPROLOL TARTRATE 50 MG TAB 100 MG PO ×2 (09:25→20:14)
[2024-09-11] MEDS: DOXYCYCLINE HYCLATE 100 MG TABLET PO ×2 (09:25→20:16)
[2024-09-11] MEDS: SODIUM CHLORIDE 1 GM TABLET PO ×2 (09:25→17:42)
[2024-09-11] MEDS: amLODIPine BESYLATE 10 MG TABLET PO (09:25)
[2024-09-11] MEDS: cloNIDine HCL 0.1 MG TABLET PO (09:25)
[2024-09-11] MEDS: guaiFENesin 12 HR 600 MG TABCR 1200 MG PO ×2 (09:26→20:15)
[2024-09-11] MEDS: MEMANTINE 5 MG TABLET PO ×2 (09:26→20:15)
[2024-09-11] MEDS: PRIMIDONE 50 MG TABLET 200 MG PO ×2 (09:26→20:15)
[2024-09-11] MEDS: FLUTICASONE PROPIONATE 0.05% NA SPR 16 GM BTL (*BKC) 2 SPRAY NASAL (09:27)
[2024-09-11] MEDS: POTASSIUM CHLORIDE INJ 40 MEQ in SODIUM CHLORIDE 0.9% IV 500 ML 130 MEQ IVPB (11:51)
[2024-09-11 12:03] LABS: Glucose Point of Care 150 mg/dl (65-105)
--- NOTE | 2024-09-11 12:33 | P.PNIM_ITS ---
Progress Note: A&P Assessment and Plan (1) Hyponatremia: Code(s): E87.1 - Hypo-osmolality and hyponatremia Status: Acute Assessment and Plan: Patient's sodium is 133 today. DC fluids encourage oral fluids DC fluid restriction (2) Altered mental status: Code(s): R41.82 - Altered mental status, unspecified Status: Acute Assessment and Plan: AMS resolved after IV abx for pneumoina (3) Hypokalemia: Code(s): E87.6 - Hypokalemia Status: Acute Assessment and Plan: replace potassium levels with K cl rider today monitor BMp levels encourage food (4) Constipation: Qualifiers: Constipation type: chronic idiopathic constipation Qualified Code(s): K59.04 - Chronic idiopathic constipation Code(s): K59.00 - Constipation, unspecified Status: Acute Assessment and Plan: Pt had large bm yesterday (5) HCAP (healthcare-associated pneumonia): Code(s): J18.9 - Pneumonia, unspecified organism Status: Acute Assessment and Plan: Pt has been on vancomycin and meropenem for suspected hospital-acquired pneumonia. transition to low abx watch cbc Plan sleep apnea - pt uses 2 lites at night Subjective Date/time seen: 09/11/24 12:33 Interval history: 73-year-old female who was recently discharged from [facility] with pneumonia presents with weakness and altered mental status. Has a significant history of chronic hyponatremia neurocognitive disorder. On arrival from nursing facility she appeared fatigued A&O x3. Sodium found to be 119. Given 1 L normal saline and placed on normal saline in fusion. Today sodium is 131. Patient also reports she has had a cough with green sputum production and generalized body aches. However, not the best historian and seems to take awhile to recall information. When asked what month it is she tells me 2024. Pt not been eating much admitted with pneumonia and low potassium and sodium levels Pt has been on vancomycin and meropenem for suspected hospital-acquired pneumonia. Exam Narrative: Pt had large BM yesterday feels better wants to eat more Denies body aches or wet cough Const: General: comfortable and no acute distress Resp: Effort & Inspection: normal respiratory effort Other: Air entry is better, Rhonchi left quezada Cardio: Rate: regular rate Rhythm: regular rhythm Neuro: Cranial nerves: Yes Equal, round and reactive pupils present Motor exam (neuro): 5/5 motor strength present throughout Extrem: General: edema (1+ pitting edema bilateral lower extremities below the knees. ) Objective Data Vital Signs Vital Signs: Vital Signs - 24 hr 09/10/24 14:00 09/10/24 16:00 09/10/24 16:00 Temperature 36.9 C Pulse Rate 86 87 87 Respiratory Rate 20 Blood Pressure 194/73 H Pulse Oximetry 95 Oxygen Delivery 09/10/24 16:00 09/10/24 18:00 09/10/24 20:00 Temperature Pulse Rate 92 Respiratory Rate Blood Pressure Pulse Oximetry Oxygen Delivery Room Air Room Air 09/10/24 20:00 09/10/24 20:28 09/10/24 21:06 Temperature 36.9 C Pulse Rate 94 95 98 Respiratory Rate 20 16 Blood Pressure 164/87 H Pulse Oximetry 95 Oxygen Delivery 09/10/24 21:16 09/10/24 22:00 09/10/24 23:27 Temperature 37.1 C Pulse Rate 100 90 89 Respiratory Rate 20 Blood Pressure 158/83 H Pulse Oximetry 93 Oxygen Delivery 09/11/24 00:00 09/11/24 00:00 09/11/24 02:00 Temperature Pulse Rate 82 79 Respiratory Rate Blood Pressure Pulse Oximetry Oxygen Delivery Room Air 09/11/24 04:00 09/11/24 04:00 09/11/24 04:00 Temperature 37.0 C Pulse Rate 97 104 H Respiratory Rate 20 Blood Pressure 156/84 H Pulse Oximetry 93 Oxygen Delivery Room Air 09/11/24 06:00 09/11/24 07:33 09/11/24 07:33 Temperature Pulse Rate 97 106 H 106 H Respiratory Rate 18 18 Blood Pressure Pulse Oximetry 94 Oxygen Delivery Room Air 09/11/24 08:00 09/11/24 09:25 Temperature 37.3 C Pulse Rate 12 L 115 H Respiratory Rate 22 H Blood Pressure 170/89 H Pulse Oximetry 93 Oxygen Delivery Intake/Output Intake/Output: Intake & Output 09/08/24 09/09/24 09/10/24 09/11/24 23:59 23:59 23:59 23:59 Intake Total 2747.5 2510 1760 200 Output Total 2300 900 2200 402 Balance 447.5 1200 -666 -961 Meds/Results Medications: Active Medications Generic Name Dose Route Start Last Admin Trade Name Freq PRN Reason Stop Dose Admin Acetaminophen 650 mg 09/07/24 18:34 Acetaminophen 325 Mg Tablet PO Q4H PRN Mild Pain (1-3) or Fever Hydrocodone Bitart/Acetaminophen 1 tab 09/07/24 18:34 09/08/24 06:42 Hydrocodone/Acetaminophen (*Crx) 5-325 Mg Tablet PO 1 tab Q4H PRN Administration Pain Rated 4-6 Albuterol 1 puff 09/07/24 23:24 Albuterol Sulfate (*Sp) Aerosol 1 Puff INHALATION DAILY PRN sob/wheezing Amlodipine Besylate 10 mg 09/08/24 09:00 09/11/24 09:25 Amlodipine Besylate 10 Mg Tablet PO 10 mg DAILY KELIN Administration Atorvastatin Calcium 10 mg 09/08/24 21:00 09/10/24 21:16 Atorvastatin 10 Mg Tablet PO 10 mg HS KELIN Administration Bisacodyl 10 mg 09/07/24 23:24 Bisacodyl 5 Mg Tablet Ec PO HS PRN Constipation Clonidine HCl 0.1 mg 09/08/24 09:00 09/11/24 09:25 Clonidine Hcl 0.1 Mg Tablet PO 0.1 mg DAILY KELIN Administration Dextrose 12.5 gm 09/09/24 06:51 Dextrose 50% 25 Gm/50 Ml Syringe IV PUSH PRN PRN Hypoglycemia Protocol Diclofenac Sodium 1 applic 09/07/24 23:24 Diclofenac Sodium 1% 100 Gm Gel (*Bkc) TOPICAL BID PRN moderate pain (scale score 5-6) Docusate Sodium 100 mg 09/07/24 23:24 Docusate Sodium 100 Mg Capsule PO DAILY PRN Constipation Doxycycline Hyclate 100 mg 09/08/24 21:00 09/11/24 09:25 Doxycycline Hyclate 100 Mg Tablet PO 09/13/24 09:01 100 mg Q12HR KELIN Administration Fluticasone Propionate 2 spray 09/08/24 09:00 09/11/24 09:27 Fluticasone Propionate 0.05% Na Spr 16 Gm Btl (*Bkc) NASAL 2 spray DAILY KELIN Administration Glucagon 1 mg 09/09/24 06:51 Glucagon For Inj 1 Mg Vial IM PRN PRN Hypoglycemia Protocol Glucose 15 gm 09/09/24 06:51 Glucose Oral Gel 15 Gm Of Glucse In 37.5 Gm Tube PO PRN PRN Hypoglycemia Protocol Guaifenesin 1,200 mg 09/08/24 09:00 09/11/24 09:26 Guaifenesin 12 Hr 600 Mg Tabcr PO 1,200 mg Q12HR KELIN Administration Meropenem 1 gm in 100 mls @ 200 mls/hr 09/07/24 23:55 09/11/24 06:15 IVPB 200 mls/hr Q8HR KELIN Administration Dextrose 1,000 mls @ 100 mls/hr 09/09/24 06:51 Dextrose 5% 1,000 Ml IVPB PRN PRN Hypoglycemia Protocol Potassium Chloride 40 meq/ 520 mls @ 130 mls/hr 09/11/24 10:39 09/11/24 11:51 Sodium Chloride IVPB 09/11/24 14:38 130 mls/hr ONCE ONE Administration Memantine 5 mg 09/08/24 09:00 09/11/24 09:26 Memantine 5 Mg Tablet PO 5 mg Q12HR KELIN Administration Metoprolol Tartrate 100 mg 09/08/24 09:00 09/11/24 09:25 Metoprolol Tartrate 50 Mg Tab PO 100 mg Q12HR KELIN Administration Ondansetron HCl 4 mg 09/07/24 18:34 09/08/24 01:10 Ondansetron Inj 4 Mg/2 Ml Vial IV PUSH 4 mg Q4H PRN Administration Nausea Pantoprazole Sodium 40 mg 09/08/24 09:00 09/11/24 09:25 Pantoprazole 40 Mg Tablet PO 40 mg DAILY EKLIN Administration Polyethylene Glycol 17 gm 09/07/24 23:24 Polyethylene Glycol 3350 17 Gm Powd.Pack PO DAILY PRN Constipation Primidone 200 mg 09/08/24 09:00 09/11/24 09:26 Primidone 50 Mg Tablet PO 200 mg Q12HR KELIN Administration Rivaroxaban 20 mg 09/08/24 22:00 09/10/24 21:16 Rivaroxaban 20 Mg Tablet PO 20 mg Q24H KELIN Administration Fluticasone/Salmeterol 2 puff 09/08/24 08:00 09/11/24 07:35 Fluticasone/Salmeterol 115-21 Mcg Inhaler 1 Puff INHALATION 2 puff Q12HRT KELIN Administration Sodium Chloride 1 gm 09/07/24 23:30 09/11/24 09:25 Sodium Chloride 1 Gm Tablet PO 1 gm BID KELIN Administration Radiology Results: ITS Impressions Chest X-Ray 09/10/24 08:54 IMPRESSION: Chronic interstitial change, without focal infiltrate or effusion. Labs Labs: Laboratory Results - last 24 hr 09/10/24 09/10/24 09/11/24 19:15 23:21 04:41 Sodium 133 L Potassium 2.9 L Chloride 95 L Carbon Dioxide 27 Anion Gap 11 BUN 11 Creatinine 0.47 L Estim Creat Clear Calc 93 Estimated GFR > 60 Glucose 106 POC Capillary Glucose 111 H 91 Calcium 8.7 Total Bilirubin 0.8 AST 43 H ALT 35 Alkaline Phosphatase 116 Total Protein 7.0 Albumin 4.0 09/11/24 09/11/24 06:03 11:41 Sodium Potassium Chloride Carbon Dioxide Anion Gap BUN Creatinine Estim Creat Clear Calc Estimated GFR Glucose POC Capillary Glucose 112 H 150 H Calcium Total Bilirubin AST ALT Alkaline Phosphatase Total Protein Albumin
[2024-09-11] MEDS: levoFLOXacin 500 MG TABLET PO (14:55)
[2024-09-11] MEDS: hydrALAZINE 10 MG TABLET PO (14:55)
[2024-09-11 15:16] LABS: Anion Gap 11 mmol/L (4-12); Blood Urea Nitrogen 13 mg/dL (7-17); Calcium 8.4 mg/dL (8.4-10.2); Carbon Dioxide 27 mmol/L (22-30); Chloride 94 mmol/L (98-107); Estimated CRCL calculation 98 ml/min; Estimated Glomerular Filt Rate > 60; Glucose 102 mg/dL (65-110); Potassium 3.6 mmol/L (3.4-5.0); Sodium 132 mmol/L (137-145)
--- NOTE | 2024-09-11 15:56 | PCPTNOTE ---
pt reports she gets hoyered to a wheelchair at her facility for mobility, not appropriate for skilled physical therapy in the hospital, DC'ing orders
[2024-09-11 16:44] LABS: Glucose Point of Care 109 mg/dl (65-105)
[2024-09-11 17:03] LABS: Pneumococcal Antigen Urine NOT DETECTED
[2024-09-11] MEDS: hydrALAZINE HCL 20 MG/ML VIAL 5 MG IV PUSH (18:01)
[2024-09-11] MEDS: ATORVASTATIN 10 MG TABLET PO (20:15)
[2024-09-11] MEDS: RIVAROXABAN 20 MG TABLET PO (21:16)
[2024-09-12] VITALS (8 sets, daily range): BP systolic 149–194; BP diastolic 65–96; PULSE 72–116; RESP 18–24; TEMP 36.6–37.6; O2SAT 93–99
[2024-09-12 00:05] LABS: Glucose Point of Care 120 mg/dl (65-105)
[2024-09-12 05:34] LABS: Anion Gap 11 mmol/L (4-12); Blood Urea Nitrogen 15 mg/dL (7-17); Calcium 8.6 mg/dL (8.4-10.2); Carbon Dioxide 25 mmol/L (22-30); Chloride 96 mmol/L (98-107); Estimated CRCL calculation 89 ml/min; Estimated Glomerular Filt Rate > 60; Glucose 106 mg/dL (65-110); Sodium 132 mmol/L (137-145)
[2024-09-12] MEDS: hydrALAZINE 10 MG TABLET PO ×3 (06:02→21:05)
[2024-09-12 06:05] LABS: Glucose Point of Care 89 mg/dl (65-105)
[2024-09-12] MEDS: FLUTICASONE/SALMETEROL 115-21 MCG INHALER 1 PUFF 2 PUFF INHALATION ×2 (08:15→21:01)
[2024-09-12] MEDS: POTASSIUM CHLORIDE 20 MEQ PACKET (FOR LIQUID) 40 MEQ PO (08:55)
[2024-09-12] MEDS: FLUTICASONE PROPIONATE 0.05% NA SPR 16 GM BTL (*BKC) 2 SPRAY NASAL (08:55)
[2024-09-12] MEDS: METOPROLOL TARTRATE 50 MG TAB 100 MG PO ×2 (08:56→20:21)
[2024-09-12] MEDS: cloNIDine HCL 0.1 MG TABLET PO (08:57)
[2024-09-12] MEDS: DOXYCYCLINE HYCLATE 100 MG TABLET PO ×2 (08:57→20:21)
[2024-09-12] MEDS: amLODIPine BESYLATE 10 MG TABLET PO (08:57)
[2024-09-12] MEDS: MEMANTINE 5 MG TABLET PO ×2 (08:57→20:22)
[2024-09-12] MEDS: PANTOPRAZOLE 40 MG TABLET PO (08:57)
[2024-09-12] MEDS: SODIUM CHLORIDE 1 GM TABLET PO ×2 (08:57→17:00)
[2024-09-12] MEDS: guaiFENesin 12 HR 600 MG TABCR 1200 MG PO ×2 (08:57→20:22)
[2024-09-12] MEDS: PRIMIDONE 50 MG TABLET 200 MG PO ×2 (09:03→20:21)
[2024-09-12 12:06] LABS: Glucose Point of Care 123 mg/dl (65-105)
--- NOTE | 2024-09-12 12:21 | P.PNIM_ITS ---
Progress Note: A&P Assessment and Plan (1) Hyponatremia: Code(s): E87.1 - Hypo-osmolality and hyponatremia Status: Acute Assessment and Plan: Patient's sodium Has improved . Admission sodium of 119. DC fluids encourage oral fluids DC fluid restriction (2) Altered mental status: Code(s): R41.82 - Altered mental status, unspecified Status: Acute Assessment and Plan: AMS resolved after IV abx for pneumoina (3) Hypokalemia: Code(s): E87.6 - Hypokalemia Status: Acute Assessment and Plan: replace potassium levels Continue to supplement and monitor monitor BMp levels encourage food (4) Constipation: Qualifiers: Constipation type: chronic idiopathic constipation Qualified Code(s): K59.04 - Chronic idiopathic constipation Code(s): K59.00 - Constipation, unspecified Status: Acute Assessment and Plan: Pt had large bm yesterday (5) HCAP (healthcare-associated pneumonia): Code(s): J18.9 - Pneumonia, unspecified organism Status: Acute Assessment and Plan: Pt has been on vancomycin and meropenem for suspected hospital-acquired pneumonia. transition to low abx watch cbc Plan sleep apnea - pt uses 2 lites at night DVT prophylaxis on Xarelto Subjective Date/time seen: 09/12/24 12:21 Interval history: 73-year-old female who was recently discharged from [facility] with pneumonia presents with weakness and altered mental status. Has a significant history of chronic hyponatremia neurocognitive disorder. On arrival from nursing facility she appeared fatigued A&O x3. Sodium found to be 119. Given 1 L normal saline and placed on normal saline infusion. Today sodium is 131. Patient also reports she has had a cough with green sputum production and generalized body aches. However, not the best historian and seems to take awhile to recall information. When asked what month it is she tells me 2024. Pt not been eating much admitted with pneumonia and low potassium and sodium levels Pt has been on vancomycin and meropenem for suspected hospital-acquired pneumonia. Review of Systems Review of Systems: All systems reviewed & are unremarkable except as noted in HPI and below (HPI) Exam Narrative: GENERAL: tired looking, well-nourished, and in no acute distress HEAD: Normocephalic, atraumatic. EYES: PERRL and EOMI. ENT: Mucous membranes moist. CHEST: Clear to auscultation. No respiratory distress. HEART: Regular rate and rhythm. Normal peripheral pulses. ABDOMEN: Soft, nontender, nondistended. EXTREMITIES: Normal range of motion. No edema. Left AKA. SKIN: Warm, dry, no rash. NEURO: Alert and Conversant PSYCH: Normal mood and affect. Objective Data Vital Signs Vital Signs: Vital Signs - 24 hr 09/11/24 14:29 09/11/24 16:00 09/11/24 17:47 Temperature 98.3 F Pulse Rate 94 Respiratory Rate 20 Blood Pressure 185/70 H 183/72 H 197/77 H Pulse Oximetry 97 Oxygen Delivery 09/11/24 20:00 09/11/24 20:14 09/11/24 20:23 Temperature Pulse Rate 79 110 H Respiratory Rate 18 Blood Pressure Pulse Oximetry Oxygen Delivery Room Air 09/11/24 21:00 09/11/24 23:42 09/12/24 08:00 Temperature 98.3 F 97.9 F Pulse Rate 95 105 H Respiratory Rate 20 24 H Blood Pressure 170/71 H 194/90 H Pulse Oximetry 98 95 Oxygen Delivery Room Air 09/12/24 08:15 09/12/24 08:15 09/12/24 11:45 Temperature 99.7 F H Pulse Rate 111 H 72 Respiratory Rate 18 24 H Blood Pressure 149/65 H Pulse Oximetry 93 96 Oxygen Delivery Room Air Intake/Output Intake/Output: Intake & Output 09/09/24 09/10/24 09/11/24 09/12/24 23:59 23:59 23:59 23:59 Intake Total 2510 1760 1060 150 Output Total 900 2200 852 700 Balance 1610 -440 208 -550 Meds/Results Medications: Active Medications Generic Name Dose Route Start Last Admin Trade Name Freq PRN Reason Stop Dose Admin Acetaminophen 650 mg 09/07/24 18:34 Acetaminophen 325 Mg Tablet PO Q4H PRN Mild Pain (1-3) or Fever Hydrocodone Bitart/Acetaminophen 1 tab 09/07/24 18:34 09/08/24 06:42 Hydrocodone/Acetaminophen (*Crx) 5-325 Mg Tablet PO 1 tab Q4H PRN Administration Pain Rated 4-6 Albuterol 1 puff 09/07/24 23:24 Albuterol Sulfate (*Sp) Aerosol 1 Puff INHALATION DAILY PRN sob/wheezing Amlodipine Besylate 10 mg 09/08/24 09:00 09/12/24 08:57 Amlodipine Besylate 10 Mg Tablet PO 10 mg DAILY KELIN Administration Atorvastatin Calcium 10 mg 09/08/24 21:00 09/11/24 20:15 Atorvastatin 10 Mg Tablet PO 10 mg HS KELIN Administration Bisacodyl 10 mg 09/07/24 23:24 Bisacodyl 5 Mg Tablet Ec PO HS PRN Constipation Clonidine HCl 0.1 mg 09/08/24 09:00 09/12/24 08:57 Clonidine Hcl 0.1 Mg Tablet PO 0.1 mg DAILY KELIN Administration Dextrose 12.5 gm 09/09/24 06:51 Dextrose 50% 25 Gm/50 Ml Syringe IV PUSH PRN PRN Hypoglycemia Protocol Diclofenac Sodium 1 applic 09/07/24 23:24 Diclofenac Sodium 1% 100 Gm Gel (*Bkc) TOPICAL BID PRN moderate pain (scale score 5-6) Docusate Sodium 100 mg 09/07/24 23:24 Docusate Sodium 100 Mg Capsule PO DAILY PRN Constipation Doxycycline Hyclate 100 mg 09/08/24 21:00 09/12/24 08:57 Doxycycline Hyclate 100 Mg Tablet PO 09/13/24 09:01 100 mg Q12HR KELIN Administration Fluticasone Propionate 2 spray 09/08/24 09:00 09/12/24 08:55 Fluticasone Propionate 0.05% Na Spr 16 Gm Btl (*Bkc) NASAL 2 spray DAILY KELIN Administration Glucagon 1 mg 09/09/24 06:51 Glucagon For Inj 1 Mg Vial IM PRN PRN Hypoglycemia Protocol Glucose 15 gm 09/09/24 06:51 Glucose Oral Gel 15 Gm Of Glucse In 37.5 Gm Tube PO PRN PRN Hypoglycemia Protocol Guaifenesin 1,200 mg 09/08/24 09:00 09/12/24 08:57 Guaifenesin 12 Hr 600 Mg Tabcr PO 1,200 mg Q12HR KELIN Administration Hydralazine HCl 10 mg 09/12/24 06:00 09/12/24 06:02 Hydralazine 10 Mg Tablet PO 10 mg Q8HR KELIN Administration Hydralazine HCl 5 mg 09/11/24 17:52 09/11/24 18:01 Hydralazine Hcl 20 Mg/Ml Vial IV PUSH 5 mg TID PRN Administration SBP > 160 Dextrose 1,000 mls @ 100 mls/hr 09/09/24 06:51 Dextrose 5% 1,000 Ml IVPB PRN PRN Hypoglycemia Protocol Levofloxacin 500 mg 09/11/24 14:00 09/11/24 14:55 Levofloxacin 500 Mg Tablet PO 500 mg DAILY@1400 KELIN Administration Memantine 5 mg 09/08/24 09:00 09/12/24 08:57 Memantine 5 Mg Tablet PO 5 mg Q12HR KELIN Administration Metoprolol Tartrate 100 mg 09/08/24 09:00 09/12/24 08:56 Metoprolol Tartrate 50 Mg Tab PO 100 mg Q12HR KELIN Administration Ondansetron HCl 4 mg 09/07/24 18:34 09/08/24 01:10 Ondansetron Inj 4 Mg/2 Ml Vial IV PUSH 4 mg Q4H PRN Administration Nausea Pantoprazole Sodium 40 mg 09/08/24 09:00 09/12/24 08:57 Pantoprazole 40 Mg Tablet PO 40 mg DAILY KELIN Administration Polyethylene Glycol 17 gm 09/07/24 23:24 Polyethylene Glycol 3350 17 Gm Powd.Pack PO DAILY PRN Constipation Primidone 200 mg 09/08/24 09:00 09/12/24 09:03 Primidone 50 Mg Tablet PO 200 mg Q12HR KELIN Administration Rivaroxaban 20 mg 09/08/24 22:00 09/11/24 21:16 Rivaroxaban 20 Mg Tablet PO 20 mg Q24H KELIN Administration Fluticasone/Salmeterol 2 puff 09/08/24 08:00 09/12/24 08:15 Fluticasone/Salmeterol 115-21 Mcg Inhaler 1 Puff INHALATION 2 puff Q12HRT KELIN Administration Sodium Chloride 1 gm 09/07/24 23:30 09/12/24 08:57 Sodium Chloride 1 Gm Tablet PO 1 gm BID KELIN Administration Radiology Results: ITS Impressions Chest X-Ray 09/10/24 08:54 IMPRESSION: Chronic interstitial change, without focal infiltrate or effusion. Labs Labs: Laboratory Results - last 24 hr 09/08/24 09/11/24 09/11/24 00:53 14:56 16:15 Sodium 132 L Potassium 3.6 Chloride 94 L Carbon Dioxide 27 Anion Gap 11 BUN 13 Creatinine 0.43 L Estim Creat Clear Calc 98 Estimated GFR > 60 Glucose 102 POC Capillary Glucose 109 H Calcium 8.4 Urine Pneumococcal Ag Not detected 09/12/24 09/12/24 09/12/24 00:03 05:10 06:02 Sodium 132 L Potassium 3.0 L Chloride 96 L Carbon Dioxide 25 Anion Gap 11 BUN 15 Creatinine 0.48 L Estim Creat Clear Calc 89 Estimated GFR > 60 Glucose 106 POC Capillary Glucose 120 H 89 Calcium 8.6 Urine Pneumococcal Ag 09/12/24 12:02 Sodium Potassium Chloride Carbon Dioxide Anion Gap BUN Creatinine Estim Creat Clear Calc Estimated GFR Glucose POC Capillary Glucose 123 H Calcium Urine Pneumococcal Ag
[2024-09-12] MEDS: levoFLOXacin 500 MG TABLET PO (14:24)
[2024-09-12] MEDS: hydrALAZINE HCL 20 MG/ML VIAL 5 MG IV PUSH (18:58)
[2024-09-12 19:50] LABS: Glucose Point of Care 195 mg/dl (65-105)
[2024-09-12] MEDS: ATORVASTATIN 10 MG TABLET PO (20:22)
[2024-09-12] MEDS: RIVAROXABAN 20 MG TABLET PO (21:05)
[2024-09-12 23:24] LABS: Glucose Point of Care 90 mg/dl (65-105)
[2024-09-13] VITALS (8 sets, daily range): BP systolic 148–180; BP diastolic 56–96; PULSE 82–116; RESP 20–24; TEMP 36.6–37.7; O2SAT 93–99
[2024-09-13] MEDS: hydrALAZINE HCL 20 MG/ML VIAL 5 MG IV PUSH (01:35)
[2024-09-13 05:45] LABS: Basophils Absolute Auto 0.1 K/mm3 (0.0-0.1); Basophils Percent Auto 0.4 % (0.2-1.2); Eosinophils Absolute Auto 0.1 K/mm3 (0-0.3); Eosinophils Percent Auto 0.4 % (0-4.4); Hematocrit 38.5 % (37.0-47.0); Hemoglobin 13.1 g/dL (12.0-15.0); Immature Granulocyte Absolute 0.21 K/mm3 (0.00-0.031); Immature Granulocyte Percent A 1.3 % (0-0.5); Lymphocytes Absolute Auto 2.99 K/mm3 (0.9-3.2); Lymphocytes Percent Auto 18.9 % (18.3-44.2); Mean Corpuscular Hemoglobin 30.2 pg (26-34); Mean Corpuscular Volume 88.7 fl (80-100); Mean Platelet Volume 9.9 fl (7.4-10.4); Monocytes Absolute Auto 2.1 K/mm3 (0.1-0.6); Monocytes Percent Auto 13.2 % (2.6-8.5); Neutrophils Absolute Auto 10.4 K/mm3 (1.3-6.7); Neutrophils Percent Auto 65.8 % (45.5-73.1); Platelet Count Result 196 k/mm3 (150-375); Red Blood Count 4.34 M/mm3 (4.2-5.4); Red Cell Distribution Width 14.1 % (11.5-14.5); White Blood Count 15.8 K/mm3 (4.5-10.0)
[2024-09-13] MEDS: hydrALAZINE 10 MG TABLET PO ×3 (05:58→20:58)
[2024-09-13 06:02] LABS: Alanine Aminotransferase 32 U/L (6-35); Albumin Level 3.3 g/dL (3.5-5.1); Alkaline Phosphatase 92 U/L (38-126); Anion Gap 11 mmol/L (4-12); Aspartate Amino Transferase 34 U/L (14-36); Bilirubin,Total 0.6 mg/dL (0.2-1.3); Blood Urea Nitrogen 21 mg/dL (7-17); Calcium 8.6 mg/dL (8.4-10.2); Carbon Dioxide 25 mmol/L (22-30); Chloride 97 mmol/L (98-107); Estimated CRCL calculation 85 ml/min; Estimated Glomerular Filt Rate > 60; Glucose 107 mg/dL (65-110); Magnesium 1.4 mg/dL (1.6-2.3); Sodium 133 mmol/L (137-145)
--- NOTE | 2024-09-13 08:29 | PCPTNOTE ---
Per care coordination note, pt is dependent at baseline, requires a uriel lift for OOB mobility. Plans to return to [facility] status upon discharge. D/c therapy order as pt is at baseline.
[2024-09-13] MEDS: cloNIDine HCL 0.1 MG TABLET PO (08:32)
[2024-09-13] MEDS: DOXYCYCLINE HYCLATE 100 MG TABLET PO (08:32)
[2024-09-13] MEDS: amLODIPine BESYLATE 10 MG TABLET PO (08:32)
[2024-09-13] MEDS: PRIMIDONE 50 MG TABLET 200 MG PO ×2 (08:33→20:55)
[2024-09-13] MEDS: guaiFENesin 12 HR 600 MG TABCR 1200 MG PO ×2 (08:33→20:57)
[2024-09-13] MEDS: MEMANTINE 5 MG TABLET PO ×2 (08:33→20:57)
[2024-09-13] MEDS: SODIUM CHLORIDE 1 GM TABLET PO ×2 (08:33→16:53)
[2024-09-13] MEDS: METOPROLOL TARTRATE 50 MG TAB 100 MG PO ×2 (08:33→20:56)
[2024-09-13] MEDS: PANTOPRAZOLE 40 MG TABLET PO (08:33)
[2024-09-13] MEDS: FLUTICASONE PROPIONATE 0.05% NA SPR 16 GM BTL (*BKC) 2 SPRAY NASAL (08:34)
[2024-09-13] MEDS: FLUTICASONE/SALMETEROL 115-21 MCG INHALER 1 PUFF 2 PUFF INHALATION ×2 (09:28→20:56)
--- NOTE | 2024-09-13 13:53 | PCOTNOTE ---
Pt. is dependent at baseline, and is nursing home resident at skilled nursing. Nursing in agreement that pt. at baseline. Per coordination pt. will return to facility at discharge.
--- NOTE | 2024-09-13 14:18 | P.PNIM_ITS ---
Progress Note: A&P Assessment and Plan (1) Hyponatremia: Code(s): E87.1 - Hypo-osmolality and hyponatremia Status: Acute Assessment and Plan: Patient's sodium is 133 today. (2) Altered mental status: Code(s): R41.82 - Altered mental status, unspecified Status: Acute Assessment and Plan: AMS resolved after IV abx for pneumonia transition to oral abx (3) Hypokalemia: Code(s): E87.6 - Hypokalemia Status: Acute Assessment and Plan: potassium supplements monitor BMP levels encourage food (4) Constipation: Qualifiers: Constipation type: chronic idiopathic constipation Qualified Code(s): K59.04 - Chronic idiopathic constipation Code(s): K59.00 - Constipation, unspecified Status: Acute Assessment and Plan: resolved pt having good BM now with laxatives (5) HCAP (healthcare-associated pneumonia): Code(s): J18.9 - Pneumonia, unspecified organism Status: Acute Assessment and Plan: Pt has been on vancomycin and meropenem for suspected hospital-acquired pneumonia. transitioned to oral abx Plan sleep apnea - pt uses 2 lites at night refuses CPAP at night Subjective Date/time seen: 09/13/24 14:18 Interval history: 73-year-old female who was recently discharged from [facility] with pneumonia presents with weakness and altered mental status. Has a significant history of chronic hyponatremia neurocognitive disorder. On arrival from nursing facility she appeared fatigued A&O x3. Sodium found to be 119. Given 1 L normal saline and placed on normal saline infusion. Today sodium is 133. pt is on salt tablets Patient also reports she has had a cough with green sputum production and generalized body aches. However, not the best historian and seems to take awhile to recall information. When asked what month it is she tells me 2024. Pt not been eating much admitted with pneumonia and low potassium and sodium levels Pt has been on vancomycin and meropenem for suspected hospital-acquired pneumonia. transitioned to oral abx doing better ? dc back to snf [facility] Review of Systems Review of Systems: pt feels better Exam Narrative: had good BMs eating better Denies body aches or wet cough Const: General: comfortable and no acute distress Resp: Effort & Inspection: normal respiratory effort Other: Air entry is better, Rhonchi left quezada Cardio: Rate: regular rate Rhythm: regular rhythm Neuro: Cranial nerves: Yes Equal, round and reactive pupils present Motor exam (neuro): 5/5 motor strength present throughout Extrem: General: edema (1+ pitting edema bilateral lower extremities below the knees. ) Objective Data Vital Signs Vital Signs: Vital Signs - 24 hr 09/12/24 16:00 09/12/24 19:34 09/12/24 20:21 Temperature 37.5 C Pulse Rate 100 88 Respiratory Rate 24 H Blood Pressure 186/86 H Pulse Oximetry 96 96 Oxygen Delivery Room Air Fraction of Inspired Oxygen 21 09/12/24 21:01 09/13/24 00:02 09/13/24 06:09 Temperature 36.6 C Pulse Rate 116 H Respiratory Rate 24 H Blood Pressure 165/96 H 180/70 H Pulse Oximetry 93 99 Oxygen Delivery Room Air Fraction of Inspired Oxygen 09/13/24 07:46 09/13/24 09:28 Temperature 37.3 C Pulse Rate 116 H Respiratory Rate 24 H Blood Pressure 159/76 H Pulse Oximetry 93 94 Oxygen Delivery Room Air Fraction of Inspired Oxygen Intake/Output Intake/Output: Intake & Output 09/10/24 09/11/24 09/12/24 09/13/24 23:59 23:59 23:59 23:59 Intake Total 1760 1060 730 540 Output Total 2200 852 1400 Balance -440 208 -670 540 Meds/Results Medications: Active Medications Generic Name Dose Route Start Last Admin Trade Name Freq PRN Reason Stop Dose Admin Acetaminophen 650 mg 09/07/24 18:34 Acetaminophen 325 Mg Tablet PO Q4H PRN Mild Pain (1-3) or Fever Hydrocodone Bitart/Acetaminophen 1 tab 09/07/24 18:34 09/08/24 06:42 Hydrocodone/Acetaminophen (*Crx) 5-325 Mg Tablet PO 1 tab Q4H PRN Administration Pain Rated 4-6 Albuterol 1 puff 09/07/24 23:24 Albuterol Sulfate (*Sp) Aerosol 1 Puff INHALATION DAILY PRN sob/wheezing Amlodipine Besylate 10 mg 09/08/24 09:00 09/13/24 08:32 Amlodipine Besylate 10 Mg Tablet PO 10 mg DAILY KELIN Administration Atorvastatin Calcium 10 mg 09/08/24 21:00 09/12/24 20:22 Atorvastatin 10 Mg Tablet PO 10 mg HS KELIN Administration Bisacodyl 10 mg 09/07/24 23:24 Bisacodyl 5 Mg Tablet Ec PO HS PRN Constipation Clonidine HCl 0.1 mg 09/08/24 09:00 09/13/24 08:32 Clonidine Hcl 0.1 Mg Tablet PO 0.1 mg DAILY KELIN Administration Dextrose 12.5 gm 09/09/24 06:51 Dextrose 50% 25 Gm/50 Ml Syringe IV PUSH PRN PRN Hypoglycemia Protocol Diclofenac Sodium 1 applic 09/07/24 23:24 Diclofenac Sodium 1% 100 Gm Gel (*Bkc) TOPICAL BID PRN moderate pain (scale score 5-6) Docusate Sodium 100 mg 09/07/24 23:24 Docusate Sodium 100 Mg Capsule PO DAILY PRN Constipation Fluticasone Propionate 2 spray 09/08/24 09:00 09/13/24 08:34 Fluticasone Propionate 0.05% Na Spr 16 Gm Btl (*Bkc) NASAL 2 spray DAILY KELIN Administration Glucagon 1 mg 09/09/24 06:51 Glucagon For Inj 1 Mg Vial IM PRN PRN Hypoglycemia Protocol Glucose 15 gm 09/09/24 06:51 Glucose Oral Gel 15 Gm Of Glucse In 37.5 Gm Tube PO PRN PRN Hypoglycemia Protocol Guaifenesin 1,200 mg 09/08/24 09:00 09/13/24 08:33 Guaifenesin 12 Hr 600 Mg Tabcr PO 1,200 mg Q12HR KELIN Administration Hydralazine HCl 10 mg 09/12/24 06:00 09/13/24 05:58 Hydralazine 10 Mg Tablet PO 10 mg Q8HR KELIN Administration Hydralazine HCl 5 mg 09/11/24 17:52 09/13/24 01:35 Hydralazine Hcl 20 Mg/Ml Vial IV PUSH 5 mg TID PRN Administration SBP > 160 Dextrose 1,000 mls @ 100 mls/hr 09/09/24 06:51 Dextrose 5% 1,000 Ml IVPB PRN PRN Hypoglycemia Protocol Levofloxacin 500 mg 09/11/24 14:00 09/12/24 14:24 Levofloxacin 500 Mg Tablet PO 500 mg DAILY@1400 KELIN Administration Memantine 5 mg 09/08/24 09:00 09/13/24 08:33 Memantine 5 Mg Tablet PO 5 mg Q12HR KELIN Administration Metoprolol Tartrate 100 mg 09/08/24 09:00 09/13/24 08:33 Metoprolol Tartrate 50 Mg Tab PO 100 mg Q12HR KELIN Administration Ondansetron HCl 4 mg 09/07/24 18:34 09/08/24 01:10 Ondansetron Inj 4 Mg/2 Ml Vial IV PUSH 4 mg Q4H PRN Administration Nausea Pantoprazole Sodium 40 mg 09/08/24 09:00 09/13/24 08:33 Pantoprazole 40 Mg Tablet PO 40 mg DAILY KELIN Administration Polyethylene Glycol 17 gm 09/07/24 23:24 Polyethylene Glycol 3350 17 Gm Powd.Pack PO DAILY PRN Constipation Primidone 200 mg 09/08/24 09:00 09/13/24 08:33 Primidone 50 Mg Tablet PO 200 mg Q12HR KELIN Administration Rivaroxaban 20 mg 09/08/24 22:00 09/12/24 21:05 Rivaroxaban 20 Mg Tablet PO 20 mg Q24H KELIN Administration Fluticasone/Salmeterol 2 puff 09/08/24 08:00 09/13/24 09:28 Fluticasone/Salmeterol 115-21 Mcg Inhaler 1 Puff INHALATION 2 puff Q12HRT KELIN Administration Sodium Chloride 1 gm 09/07/24 23:30 09/13/24 08:33 Sodium Chloride 1 Gm Tablet PO 1 gm BID KELIN Administration Radiology Results: ITS Impressions Chest X-Ray 09/10/24 08:54 IMPRESSION: Chronic interstitial change, without focal infiltrate or effusion. Labs Labs: Laboratory Results - last 24 hr 09/12/24 09/12/24 09/13/24 18:53 23:11 05:19 WBC 15.8 H RBC 4.34 Hgb 13.1 Hct 38.5 MCV 88.7 MCH 30.2 MCHC 34.0 RDW 14.1 Plt Count 196 D MPV 9.9 Immature Gran % (Auto) 1.3 H Neut % (Auto) 65.8 Lymph % (Auto) 18.9 Maverick % (Auto) 13.2 H Eos % (Auto) 0.4 Baso % (Auto) 0.4 Lymph # (Auto) 2.99 Maverick # (Auto) 2.1 H Eos # (Auto) 0.1 Baso # (Auto) 0.1 Abs Immat Gran (auto) 0.21 H Absolute Neuts (auto) 10.4 H Absolute Nucleated RBC 0.000 Nucleated RBC % 0.0 Sodium 133 L Potassium 3.0 L Chloride 97 L Carbon Dioxide 25 Anion Gap 11 BUN 21 H Creatinine 0.51 L Estim Creat Clear Calc 85 Estimated GFR > 60 Glucose 107 POC Capillary Glucose 195 H 90 Calcium 8.6 Magnesium 1.4 L Total Bilirubin 0.6 AST 34 ALT 32 Alkaline Phosphatase 92 Total Protein 6.0 L Albumin 3.3 L
[2024-09-13] MEDS: levoFLOXacin 500 MG TABLET PO (14:23)
[2024-09-13 16:50] LABS: Glucose Point of Care 166 mg/dl (65-105)
[2024-09-13] MEDS: POTASSIUM CHLORIDE 20 MEQ PACKET (FOR LIQUID) 40 MEQ PO (16:53)
[2024-09-13 18:24] LABS: Glucose Point of Care 159 mg/dl (65-105)
[2024-09-13 19:12] LABS: Mycoplasma IgM Antibody Titer 36 U/mL
[2024-09-13] MEDS: RIVAROXABAN 20 MG TABLET PO (20:56)
[2024-09-13] MEDS: ATORVASTATIN 10 MG TABLET PO (20:56)
[2024-09-13 21:13] LABS: Legionella pneumophila Ag Ur NOT DETECTED
[2024-09-14 00:55] LABS: Glucose Point of Care 107 mg/dl (65-105)
[2024-09-14] MEDS: hydrALAZINE 10 MG TABLET PO ×2 (05:29→13:24)
[2024-09-14 06:00] LABS: Glucose Point of Care 104 mg/dl (65-105)
[2024-09-14 06:11] LABS: Anion Gap 8 mmol/L (4-12); Blood Urea Nitrogen 25 mg/dL (7-17); Calcium 8.6 mg/dL (8.4-10.2); Carbon Dioxide 26 mmol/L (22-30); Chloride 104 mmol/L (98-107); Estimated CRCL calculation 71 ml/min; Estimated Glomerular Filt Rate > 60; Glucose 103 mg/dL (65-110); Potassium 3.7 mmol/L (3.4-5.0); Sodium 138 mmol/L (137-145)
[2024-09-14 07:49] VITALS: BP 185/66; PULSE 97; RESP 18; TEMP 37.4; O2SAT 94
[2024-09-14 08:00] VITALS: PULSE 97; RESP 18; O2SAT 94
[2024-09-14] MEDS: amLODIPine BESYLATE 10 MG TABLET PO (08:17)
[2024-09-14] MEDS: guaiFENesin 12 HR 600 MG TABCR 1200 MG PO (08:17)
[2024-09-14] MEDS: FLUTICASONE PROPIONATE 0.05% NA SPR 16 GM BTL (*BKC) 2 SPRAY NASAL (08:17)
[2024-09-14] MEDS: MEMANTINE 5 MG TABLET PO (08:18)
[2024-09-14] MEDS: PANTOPRAZOLE 40 MG TABLET PO (08:18)
[2024-09-14] MEDS: cloNIDine HCL 0.1 MG TABLET PO (08:18)
[2024-09-14] MEDS: PRIMIDONE 50 MG TABLET 200 MG PO (08:18)
[2024-09-14] MEDS: METOPROLOL TARTRATE 50 MG TAB 100 MG PO (08:18)
[2024-09-14] MEDS: SODIUM CHLORIDE 1 GM TABLET PO (08:18)
[2024-09-14] MEDS: POTASSIUM CHLORIDE 20 MEQ PACKET (FOR LIQUID) 40 MEQ PO (08:20)
[2024-09-14] MEDS: FLUTICASONE/SALMETEROL 115-21 MCG INHALER 1 PUFF 2 PUFF INHALATION (09:20)
[2024-09-14 09:22] VITALS: O2SAT 93
--- NOTE | 2024-09-14 10:02 | PM.DS ---
DS: Admitting Diagnosis Discharge Date 09/14/2024 Admitting Diagnosis Hyponatremia HAP - Pneumonia treated DS: Discharge Diagnosis Discharge Diagnosis (1) Hyponatremia: Code(s): E87.1 - Hypo-osmolality and hyponatremia Status: Acute Assessment and Plan: Patient's sodium is 138 today. (2) HCAP (healthcare-associated pneumonia): Code(s): J18.9 - Pneumonia, unspecified organism Status: Acute Assessment and Plan: Pt was on vancomycin and meropenem for suspected hospital-acquired pneumonia. transitioned to oral abx Levaquin - completed full coarse of ATB management. (3) Altered mental status: Code(s): R41.82 - Altered mental status, unspecified Status: Acute Assessment and Plan: AMS resolved after IV abx for pneumonia transition to oral abx (4) Hypokalemia: Code(s): E87.6 - Hypokalemia Status: Acute Assessment and Plan: potassium supplements monitor BMP levels - k - 3.7 today encouraged food intake (5) Constipation: Qualifiers: Constipation type: chronic idiopathic constipation Qualified Code(s): K59.04 - Chronic idiopathic constipation Code(s): K59.00 - Constipation, unspecified Status: Acute Assessment and Plan: resolved pt having good BM now with laxatives Plan Patient is stable today, discharge back to long-term nursing facility. DS: Summary Hospital Course Hospital Course: This is a 73-year-old female that resides at a local Nursing Facility, who was originally discharged from [facility] with pneumonia that presented back to the Emergency department with weakness and altered mental status. This patient has a significant history of chronic hyponatremia, anemia, Bipolar disorder, Chronic resp failure on home oxygen, GERD, epilepsy, and neurocognitive disorder. On arrival from nursing facility she appeared fatigued A&O x3. Emergency department work up noted a Sodium found to be 119. With this patient was giiven 1 L normal saline and placed on normal saline infusion. Patient also reported she had a cough with green sputum production and generalized body aches. patient was found to have Pneumonia, however she lives in a senior living nursing facility, patient was started on Cefepime and Vancomycin. patient was admitted for treatment and management. Patient was able to remain on IV fluid to elevate Sodium. Sodium level has remained stable on her sodium tablets. patient cognative level has improved as well, back to her baseline. AMS resolved after IV abx for pneumonia transition to oral abx Levaquin. Will have been treated for 7 total days. Pt has been on vancomycin and meropenem for suspected hospital-acquired pneumonia. Then transitioned to oral Levaquin, completed 7 full days of treatment. Patient has known sleep apnea and uses 2 liters at night refuses CPAP at night currently. This am patient reports she feels much better. She denies any distress or concerns. Labs are stable, she completed her antibiotic treatment. Patient is agreeable to be discharged back to her long-term nursing facility. Patient is to follow up with her PCP in the next 2-5 days. Patient will need follow-up lab work through her PCP. Answer questions her satisfaction she is agreeable to this plan. Return to emergency department any worrisome sign or symptom. Status at Discharge Cognitive/behavioral status at discharge: baseline for this patient. Functional status at discharge: wheelchair bound (as per her baseline.) Overall status at discharge: patient is back to baseline Time Spent with Patient Time attestation: Total time spent providing and/or coordinating discharge services: Time spent: Greater than 30 minutes (40 total minutes) Exam Const: General: cooperative, comfortable, no acute distress, alert and awake Nutritional Appearance: obese Orientation/consciousness: oriented to person, oriented to place and oriented to time Limitations: physical limitations HENMT: Head: normal to inspection and normocephalic Eyes: General: appearance normal, both eyes and all related structures Neck: Neck: normal visual inspection, full ROM and no lymphadenopathy Chest: Chest palpation & inspection: normal inspection of the chest Resp: Effort & Inspection: normal respiratory effort Auscultation: clear to auscultation bilaterally and diminished lung sounds bilateral Cardio: Jugular venous distension: no JVD Palpation: normal PMI Rate: regular rate Rhythm: regular rhythm Heart sounds: S1 normal heart sound present and S2 normal heart sound present Peripheral pulses: Peripheral pulses 2+ throughout GI: Inspection: normal to inspection GI Palp: Yes Soft to palpation Auscultation: normal bowel sounds Skin: General skin exam: normal color and no rashes or lesions noted Neuro: General: oriented to person, oriented to place, oriented to time, patient oriented x3 and tone normal Cranial nerves: Yes CN's II-XII intact bilaterally Cognition (Neuro): normal cognition Speech: normal speech Sensory Exam: normal sensation Extrem: General: normal to inspection and capillary refill normal Psych: Appearance: grossly normal Mental Status: mental status grossly normal Speech and movement: Normal speech and movement present Affect: normal affect Attitude: cooperative DS: Data Data Completed and Pending Completed studies during hospitalization: Chest Xray 1V 09/10/24 COMPARISON: 09/07/2024 TECHNIQUE: Single portable view of the chest. FINDINGS The cardiomediastinal silhouette is unremarkable. Improved aeration of the bilateral lung quezada compared with most recent studies. No focal infiltrate is appreciated. Coarse interstitial lung markings are redemonstrated, likely chronic. IMPRESSION: Chronic interstitial change, without focal infiltrate or effusion. Chest XRay - 1 V 09/07/24 COMPARISON: Chest radiograph dated 08/06/2024 FINDINGS: Patient is rotated slightly towards the left. Airspace opacities in the left hilar and infrahilar regions which could represent atelectasis or pneumonia. Remainder the lungs are clear. No pulmonary edema, pleural effusion or pneumothorax. Heart size is normal. Atherosclerotic aorta. IMPRESSION: 1. Opacities in the left perihilar and infrahilar region which could represent atelectasis or pneumonia. Labs on day of discharge: Labs from last 24 hours 09/14/24 09/14/24 09/13/24 05:57 05:47 23:43 Sodium 138 Potassium 3.7 Chloride 104 Carbon Dioxide 26 Anion Gap 8 BUN 25 H Creatinine 0.62 L Estim Creat Clear Calc 71 Estimated GFR > 60 Glucose 103 POC Capillary Glucose 104 107 H Calcium 8.6 Ur L.pneumophila Ag Mycoplasma pneumon IgM 09/13/24 09/13/24 09/08/24 18:22 11:45 01:42 Sodium Potassium Chloride Carbon Dioxide Anion Gap BUN Creatinine Estim Creat Clear Calc Estimated GFR Glucose POC Capillary Glucose 159 H 166 H Calcium Ur L.pneumophila Ag Mycoplasma pneumon IgM 36 09/08/24 00:53 Sodium Potassium Chloride Carbon Dioxide Anion Gap BUN Creatinine Estim Creat Clear Calc Estimated GFR Glucose POC Capillary Glucose Calcium Ur L.pneumophila Ag Not detected Mycoplasma pneumon IgM Discharge Plan Discharge Attending physician on discharge: Sherley Squires Discharging Clinician: Sherley Squires Anticipated Discharge Date/Time: 09/14/24 09:40 Patient Disposition: SNF Activity: may shower and other - see discharge instructions Diet: heart healthy Discharge Instructions: Continue medications as noted. Continue all diet, activity orders as prior to admission. Antibiotics completed in hospital. Follow up with primary MD in 3-5 days. Return to emergency department forsigns of distress. Patient Instructions: Rivaroxaban (By mouth), Hyponatremia (GEN), Pain Management (GEN), Chronic Pain (GEN), Hypercoagulation (GEN), Opioid Safety (GEN), Blood Thinners (GEN), Medication Safety for Older Adults (GEN) Patient Language: Tajik Stand Alone Forms: General Discharge Information, Snf Discharge Discharge Medications: New potassium chloride [Klor-Con 10] 10 mEq tablet extended release 10 meq PO DAILY Qty: 7 0RF Continued spironolactone 25 mg tablet 25 mg PO DAILY docusate sodium 100 mg Tablet 100 mg PO DAILY PRN (Reason: Constipation) baclofen 10 mg tablet 10 mg PO TID isosorbide mononitrate 30 mg tablet extended release 24 hr 30 mg PO DAILY lidocaine [Lidoderm] 5 % adhesive patch,medicated 2 patch topical DAILY Patient Comments: left shoulder Rx Instructions: leave on most painful area for up to 12 hrs magnesium hydroxide [Gentle Laxative (mag hydrox)] 400 mg/5 mL suspension 30 ml PO DAILY PRN (Reason: constipation) diclofenac sodium [Voltaren Arthritis Pain] 1 % gel 2 g topical BID PRN (Reason: moderate pain (scale score 5-6)) Patient Comments: right shoulder Rx Instructions: apply to single elbow, wrist or hand; for hand includes palm/fingers/back of hand hydralazine 10 mg Tablet 10 mg PO QID Qty: 30 0RF Artificial Tears([id number]) 1-0.2-0.2 % Drops 1 drp EACH EYE QID PRN (Reason: Dry Eye(S)) Qty: 30 0RF oxycodone 5 mg tablet 5 mg PO Q4-6H PRN (Reason: Pain) Qty: 7 0RF atorvastatin 10 mg Tablet 10 mg PO HS cholecalciferol (vitamin D3) 10 mcg (400 unit) Tablet 5,000 unit PO DAILY primidone 50 mg Tablet 200 mg PO BID pantoprazole 40 mg Tablet,Delayed Release (Dr/Ec) 40 mg PO DAILY fluticasone propionate 50 mcg/actuation Ideal,Suspension 2 spray INTRANASAL DAILY vitamin E 400 unit Capsule 800 unit PO DAILY vitamin B complex Tablet Extended Release 1 tablet PO DAILY Rx Instructions: with biotin and folic acid metoprolol tartrate 100 mg Tablet 100 mg PO BID ondansetron HCl 4 mg tablet 4 mg PO TID amlodipine 10 mg tablet 10 mg PO DAILY bisacodyl [Dulcolax (bisacodyl)] 5 mg Tablet,Delayed Release (Dr/Ec) 10 mg PO HS PRN (Reason: Constipation) polyethylene glycol 3350 [Miralax] 17 gram/dose Powder 17 g PO DAILY PRN (Reason: Constipation) albuterol sulfate 90 mcg/actuation Hfa Aerosol Inhaler 1 inh INHALATION DAILY PRN (Reason: sob/wheezing) sodium chloride 0.65 % Aerosol,Ideal 2 spray INTRANASAL PRN PRN (Reason: Congestion) memantine 5 mg tablet 5 mg PO BID budesonide-formoterol 160-4.5 mcg/actuation HFA aerosol inhaler 2 puff INHALATION BID guaifenesin [Mucinex] 1,200 mg Tablet Extended Release 12hr 1,200 mg PO BID sodium chloride 1,000 mg tablet,soluble 1,000 mg PO BID Qty: 60 0RF pregabalin [Lyrica] 150 mg Capsule 150 mg PO BID Qty: 14 0RF losartan-hydrochlorothiazide 100-25 mg tablet 1 tablet PO DAILY Xarelto 20 mg tablet 20 mg PO Q24H clonidine HCl 0.1 mg tablet 0.1 mg PO DAILY isosorbide dinitrate 30 mg tablet 30 mg PO QID lorazepam 0.5 mg tablet 0.5 mg PO Q6H PRN (Reason: Anxiety) furosemide [Lasix] 20 mg tablet 20 mg PO BID Date of admission: 09/08/24 08:03 Primary Care Provider: Tajik,Hernando Maldonado Admitting Provider: Shabbir Zayas Attending physician on admission: Shabbir Zayas Condition: Stable Hospitalist MIPS Heart Failure (Exclusion) Patient has history of Heart Transplant or Left Ventricular Assistive Device?: No IF YES, STOP HERE Heart Failure (Qualifier) Patient has current or prior documentation of LVEF less than or equal to 40%, or mod/servere depressed LVSF?: No IF NO, STOP HERE
[2024-09-14 12:25] LABS: Glucose Point of Care 121 mg/dl (65-105)
--- NOTE | 2024-09-14 12:44 | PC.NURSE ---
Report called to Kelsi nurse at [facility]. Reviewed discharge instructions as well as care provided while in hospital. Verbalizes understanding. All documentation was faxed over the to the facility as including discharge instructions and medications lists.
[2024-09-14] MEDS: levoFLOXacin 500 MG TABLET PO (13:24)
== END 2024-09-14 14:49 | DRG 640 ==
LOC: ANHED 20:00 → ANHIMU 20:20
PROVIDERS: Family Medicine; General Practice; Internal Medicine; Admitting Provider General Practice; Emergency Provider Emergency Medicine; PCP Internal Medicine; Visit Provider Nurse Practitioner Family
DX: E87.1 Hypo-osmolality and hyponatremia (principal); J18.9 Pneumonia, unspecified organism; J96.11 Chronic respiratory failure with hypoxia; Y95 Nosocomial condition; D64.9 Anemia, unspecified; E87.6 Hypokalemia; E86.0 Dehydration; E78.5 Hyperlipidemia, unspecified; F31.9 Bipolar disorder, unspecified; F41.9 Anxiety disorder, unspecified; G47.33 Obstructive sleep apnea (adult) (pediatric); I10 Essential (primary) hypertension; K59.04 Chronic idiopathic constipation; K21.9 Gastro-esophageal reflux disease without esophagitis; Z99.81 Dependence on supplemental oxygen; Z89.612 Acquired absence of left leg above knee; Z90.49 Acquired absence of other specified parts of digestive tract
CPT/HCPCS: 36415; 71045; 80048; 80053; 81003; 82948; 83735; 83935; 84145; 84300; 84443; 85025; 85055; 86738; 87449; 87636; 87641; 87899; 93005; 94640; 96361; 96374; 96375; 96376; 99285; A9270; G0378; J0360; J2185; J2405; J3370; J3475; J3480; J7030; J7040; J7131

== ENCOUNTER 2024-09-15 09:56 | Inpatient (IN) | payer MEDICARE, MEDICAID, SELFPAY ==
[2024-09-15] VITALS (40 sets, daily range): BP systolic 163–209; BP diastolic 68–108; PULSE 103–135; RESP 20–34; TEMP 36.6–38.4; O2SAT 93–100; BMI 33.7
--- NOTE | ~2024-09-15 | XR_ITS ---
EXAMINATION: XR chest 1V portable DATE: 09/18/2024 10:30 INDICATION: Altered mental status. TECHNIQUE: A single frontal view of the chest was obtained. COMPARISON: Chest single view 09/16/2024, thoracic spine 04/24/2024 FINDINGS: There is no pneumonia, pleural effusion, or pneumothorax. The heart size is normal. IMPRESSION: 1. No acute cardiopulmonary disease. Reviewed, dictated and finalized at location A. TIME OPERATOR
--- NOTE | ~2024-09-15 | MR_ITS ---
EXAMINATION: MR brain/brain stem wo con DATE: 09/18/2024 08:25 INDICATION: Transient alteration of awareness TECHNIQUE: Magnetic resonance imaging (MRI) of the brain and brainstem was performed without intraven ous contrast. Sequences included sagittal and axial T1-weighted SE, axial diffusion-weighted FS SE, a xial T2*-weighted GRE, axial T2-weighted FLAIR, and axial T2-weighted FSE. Apparent diffusion coeffic ient (ADC) maps were created. COMPARISON: None. FINDINGS: There are regions of encephalomalacia consistent with chronic infarcts in the bilateral cerebellar he mispheres. There are no areas of restricted diffusion to suggest acute infarction. No intracranial he morrhage. There is a 1.3 x 1.2 x 0.9 cm T2 hyperintense mass versus cystic lesion within the sella tu rcica. No evident internal flow void. There are scattered areas of nonspecific increased T2-weighted signal intensity in the cerebral white matter, predominantly involving the deep and periventricular w laine matter. There are no intraparenchymal signal abnormalities seen on the other pulse sequences. Sy mmetric prominence of the sulci and ventricles consistent with mild to moderate diffuse cerebral volu me loss. There are no abnormal extra-axial fluid collections. Flow voids are seen in the cerebral art eries on the T2-weighted sequences consistent with their expected patency. Visualized orbits and soft tissues are unremarkable. There are no areas of abnormal enhancement on the post contrast images. IMPRESSION: 1. Age-related changes in the brain. No acute intracranial process. 2. 1.3 x 1.2 x 0.9 cm T2 hyperintense intrasellar mass versus cystic lesion. Differential would inclu de Rathke's cleft cyst, craniopharyngioma, pituitary adenoma, meningioma or thrombosed aneurysm. Ther e is been no evident change in appearance of the pituitary on multiple prior CT studies dating back t o thousand 17 which would argue against malignancy/metastases. Would recommend obtaining pre and post contrast pituitary protocol MRI to distinguish solid versus cystic which would aid in narrowing the d ifferential. Reviewed, dictated and finalized at location B. HOLOGY INSTRUCTOR IMPRESSION: 1. Age-related changes in the brain. No acute intracranial process. 2. 1.3 x 1.2 x 0.9 cm T2 hyperintense intrasellar mass versus cystic lesion. Di fferential would include Rathke's cleft cyst, craniopharyngioma, pituitary jarad marixa, meningioma or thrombosed aneurysm. There is been no evident change in appe arance of the pituitary on multiple prior CT studies dating back to thousand 17 which would argue against malignancy/metastases. Would recommend obtaining pre and postcontrast pituitary protocol MRI to distinguish solid versus cystic whi ch would aid in narrowing the differential.
--- NOTE | ~2024-09-15 | XR_ITS ---
EXAMINATION: XR chest 1V portable DATE: 09/16/2024 09:48 INDICATION: Shortness of breath TECHNIQUE: frontal view of the chest was obtained. COMPARISON: Chest radiograph dated 09/15/2024 FINDINGS: The lungs remain clear with no focal airspace opacities, pulmonary edema, pleural effusion or pneumot horax. The cardiomediastinal silhouette is normal. Atherosclerotic aorta. IMPRESSION: 1. No acute cardiopulmonary disease. Reviewed, dictated and finalized at location A. BUILDER
--- NOTE | ~2024-09-15 | XR_ITS ---
Portable chest x-ray Comparison: 09/18/2024 Clinical History: Hypoxia Findings: There is central pulmonary venous congestive change. No definite pleural effusion. Cardio mediastinal silhouette is stable. Bones and soft tissues are unremarkable. Impression: Central pulmonary venous congestive change. Reviewed, dictated and finalized at [facility]. ARY PAGE Impression: Central pulmonary venous congestive change.
--- NOTE | ~2024-09-15 | XR_ITS ---
EXAMINATION: XR chest 1V DATE: 09/15/2024 11:49 INDICATION: Recent pneumonia. Fever. Altered mental status. TECHNIQUE: frontal view of the chest was obtained. COMPARISON: Chest radiograph dated 09/10/2024 FINDINGS: The lungs are clear with no focal airspace opacities, pulmonary edema, pleural effusion or pneumothor ax. The cardiomediastinal silhouette is normal. Visualized bones and soft tissues are unremarkable. IMPRESSION: 1. No acute cardiopulmonary disease. Reviewed, dictated and finalized at location A. K CHECKER
--- NOTE | ~2024-09-15 | MR_ITS ---
EXAMINATION: MR pituitary wo/w con DATE: 09/19/2024 12:54 INDICATION: Pituitary mass. TECHNIQUE: Magnetic resonance imaging (MRI) of the brain and brainstem was performed without and with 17 mL MultiHance intravenous contrast. COMPARISON: Brain MRI 09/17/2024, head CT 09/15/2024 FINDINGS: There are old infarcts in the cerebellum bilaterally. The pituitary is enlarged with height of 11 mm and convex superior margin. There is a 13 mm cyst in the pituitary. There are scattered are as of nonspecific increased T2-weighted signal intensity in the cerebral white matter, which is withi n normal limits for the patient's age. There is no acute ischemic infarct or intracranial hemorrhage. The orbits are normal. The paranasal sinuses are clear. The mastoid air cells are normal. IMPRESSION: 1. 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 2. 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 Reviewed, dictated and finalized at location A. ITECTURE INTERNSHIP
--- NOTE | ~2024-09-15 | CT_ITS ---
EXAMINATION: CT brain wo con DATE: 09/15/2024 11:46 INDICATION: Altered mental status TECHNIQUE: Computed tomography (CT) of the head was performed without intravenous contrast. Sagittal and coronal reconstructions were performed. The mA was adjusted according to patient size. Iterative reconstruction technique was employed. The dose-length product was 605.33 mGy-cm. COMPARISON: head CT dated 08/06/2024 and 02/19/2021 FINDINGS: There are regions of encephalomalacia at the bilateral cerebellar hemispheres consistent with chronic infarcts. No acute intracranial hemorrhage, acute infarction or abnormal extra axial fluid collectio n. There is mild scattered white matter hypoattenuation consistent with chronic small vessel ischemic disease. Symmetric prominence of the sulci and ventricles consistent with moderate diffuse cerebral volume loss. No mass/mass effect. The orbits, paranasal sinuses and mastoid air cells are normal. IMPRESSION: 1. 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 No acute intracranial proces s. 2. Age-related changes including moderate diffuse on loss and mild scattered white matter hypoattenua tion consistent with chronic small vessel ischemic disease. Reviewed, dictated and finalized at location A. DDED SOFTWARE TEST ENGINEER IMPRESSION: 1. 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 No acu te intracranial process. 2. Age-related changes including moderate diffuse on loss and mild scattered wh ite matter hypoattenuation consistent with chronic small vessel ischemic diseas e.
--- NOTE | ~2024-09-15 | XR_ITS ---
EXAMINATION: XR lumbar puncture diagnostic DATE: 09/19/2024 13:46 INDICATION: Encephalopathy with fever. TECHNIQUE: The skin overlying the L4-L5 level was prepped and draped in usual sterile fashion. Subcu taneous 1% lidocaine was used for local anesthesia. A 20 gauge spinal needle was advanced under fluo roscopic guidance. The needle was removed and the entry site was cleaned and dressed. There were no immediate complications. Fluoroscopy exposure time was 0.1 minutes. The total number of images was 1. FINDINGS: Real-time fluoroscopy demonstrates the needle at the L4-L5 level. The opening pressure was not measured. 14 mL of clear, colorless fluid was collected in 4 tubes. IMPRESSION: 1. Successful fluoro-guided lumbar puncture. Reviewed, dictated and finalized at location A. UNICATIONS PROJECT MANAGER
--- NOTE | 2024-09-15 10:06 | ECG_ITS ---
Test Date: 2024-09-15 12:17:51 Measurements Intervals [place] Rate: 117 P: 26 VA: 116 QRS: -28 QRSD: 80 T: 69 QT: 311 QTc: 434 Interpretive Statements SINUS TACHYCARDIA POSSIBLE LEFT ATRIAL ENLARGEMENT LEFT VENTRICULAR HYPERTROPHY AND ST-T CHANGE POOR R WAVE PROGRESSION MINIMAL Q WAVES- HIGH LATERAL LEADS ABNORMAL ECG Compared to ECG 09/07/2024 16:00:17 HEART RATE HAS INCREASED Electronically Signed On 09-15-2024 13:17:46 SECTION LEADER SCREEN [employer]INTING by Balaji Gomez D.O.
--- NOTE | 2024-09-15 10:16 | ED_ITS ---
HPI - General Adult General Chief complaint: Unspecified <MESFIN Mota Last Filed: 09/15/24 19:16> Stated complaint: septic <MESFIN Mota Last Filed: 09/15/24 19:16> Time Seen by Provider: 09/15/24 10:07 <Mili Alvarez PA-C - Last Filed: 09/15/24 19:16> Source: patient and old records reviewed <MESFIN Mota Last Filed: 09/15/24 19:16> Mode of arrival: EMS <MESFIN Mota Last Filed: 09/15/24 19:16> Limitations: altered mental status and clinical condition <MESFIN Mota Last Filed: 09/15/24 19:16> History of Present Illness HPI narrative: Patient is a 73 y/o female who presents to the ED via EMS with c/o AMS. Per records, patient was admitted here twice this year for altered mental status. Most recently was admitted from 09/07-09/14 for PNA, hyponatremia, AMS. Discharged yesterday to [facility]. Was found to be altered today. Was also noted to be febrile. EMS was notified. Per records, Hx chronic hyponatremia, bipolar disorder, chronic resp failure on 4L home oxygen, epilepsy, neurocognitive disorder, L AKA. Per most recent records, was taking PO sodium tabs and sodium yesterday was 138. Normal EF 60- 65%. <MESFIN Mota Last Filed: 09/15/24 19:16> Related Data Home medications: Home Medications ?Medication ?Instructions ?Recorded ?Confirmed ?Last Taken ?Type atorvastatin 10 mg tablet 10 mg PO HS 09/09/19 09/07/24 Unknown History cholecalciferol (vitamin D3) 10 5,000 unit PO DAILY 09/09/19 09/07/24 Unknown History mcg (400 unit) tablet fluticasone propionate 50 2 spray intranasal DAILY 09/09/19 09/07/24 Unknown History mcg/actuation nasal spray,suspension pantoprazole 40 mg tablet,delayed 40 mg PO DAILY 09/09/19 09/07/24 Unknown History release primidone 50 mg tablet 200 mg PO BID 09/09/19 09/07/24 Unknown History vitamin E 268 mg (400 unit) capsule 800 unit PO DAILY 09/09/19 09/07/24 Unknown History docusate sodium 100 mg tablet 100 mg PO DAILY PRN Constipation 05/31/20 09/07/24 Unknown History spironolactone 25 mg tablet 25 mg PO DAILY 05/31/20 09/07/24 Unknown History baclofen 10 mg tablet 10 mg PO TID 02/19/21 09/07/24 Unknown History albuterol sulfate 90 mcg/actuation 1 inh inhalation DAILY PRN 04/23/24 09/07/24 Unknown History aerosol inhaler sob/wheezing amlodipine 10 mg tablet 10 mg PO DAILY 04/23/24 09/07/24 Unknown History bisacodyl 5 mg tablet,delayed 10 mg PO HS PRN Constipation 04/23/24 09/07/24 Unknown History release (Dulcolax (bisacodyl)) budesonide-formoterol HFA 160 2 puff inhalation BID 04/23/24 09/07/24 Unknown History mcg-4.5 mcg/actuation aerosol inhaler guaifenesin 1,200 mg tablet, 1,200 mg PO BID 04/23/24 09/07/24 Unknown History extended release 12 hr (Mucinex) memantine 5 mg tablet 5 mg PO BID 04/23/24 09/07/24 Unknown History metoprolol tartrate 100 mg tablet 100 mg PO BID 04/23/24 09/07/24 Unknown History ondansetron HCl 4 mg tablet 4 mg PO TID 04/23/24 09/07/24 Unknown History polyethylene glycol 3350 17 17 g PO DAILY PRN Constipation 04/23/24 09/07/24 Unknown History gram/dose oral powder (Miralax) sodium chloride 0.65 % nasal spray 2 spray intranasal PRN PRN 04/23/24 09/07/24 Unknown History aerosol Congestion vitamin B complex 1 tablet PO DAILY 04/23/24 09/07/24 Unknown History diclofenac sodium 1 % topical gel 2 g topical BID PRN moderate pain 08/06/24 09/07/24 Unknown History (Voltaren Arthritis Pain) (scale score 5-6) isosorbide mononitrate 30 mg 30 mg PO DAILY 08/06/24 09/07/24 Unknown History tablet,extended release 24 hr lidocaine 5 % topical patch 2 patch topical DAILY 08/06/24 09/07/24 Unknown History (Lidoderm) magnesium hydroxide 400 mg/5 mL 30 ml PO DAILY PRN constipation 08/06/24 09/07/24 Unknown History oral suspension (Gentle Laxative (magnesium hydroxide)) clonidine HCl 0.1 mg tablet 0.1 mg PO DAILY 09/07/24 09/07/24 Unknown History furosemide 20 mg tablet (Lasix) 20 mg PO BID 09/07/24 09/07/24 Unknown History isosorbide dinitrate 30 mg tablet 30 mg PO QID 09/07/24 09/07/24 Unknown History lorazepam 0.5 mg tablet 0.5 mg PO Q6H PRN Anxiety 09/07/24 09/07/24 Unknown History losartan 100 1 tablet PO DAILY 09/07/24 09/07/24 Unknown History mg-hydrochlorothiazide 25 mg tablet rivaroxaban 20 mg tablet (Xarelto) 20 mg PO Q24H 09/07/24 09/07/24 Unknown History <Mili Alvarez PA-C - Last Filed: 09/15/24 19:16> Allergies/adverse reactions: Allergies Allergy/AdvReac Type Severity Reaction Status Date / Time Fish Containing Products Allergy Severe Dyspnea / Verified 04/23/24 19:11 SOB Iodinated Contrast Media Allergy Intermediate HIVES, RED Verified 04/27/24 08:14 FACE iodine Allergy Unknown Unknown Verified 04/23/24 19:11 Barbiturates Allergy Unknown Verified 04/23/24 19:11 bupivacaine Allergy Unknown Verified 04/23/24 20:51 diazepam (From Valium) Allergy Unknown Verified 04/23/24 19:11 latex Allergy Unknown Verified 04/23/24 19:11 menthol Allergy Unknown Verified 04/23/24 20:51 Sulfa (Sulfonamide Allergy Unknown Verified 04/23/24 19:11 Antibiotics) thiopental (From Pentothal) Allergy Unknown Verified 04/27/24 08:14 wool Allergy Unknown Verified 04/23/24 20:51 <Mili Alvarez PA-C - Last Filed: 09/15/24 19:16> Review of Systems 2 Review of Systems: ROS unobtainable: Yes unobtainable due to medical condition and unobtainable due to mental status <Mili Alvarez PA-C - Last Filed: 09/15/24 19:16> [facility] Past Medical History Medical History: Medical History Kidney stone Chronic anemia Chronic respiratory failure with hypoxia, on home oxygen therapy Bipolar disorder Gastroesophageal reflux disease Hyperlipidemia Hypertension Obstructive sleep apnea intolerant to CPAP Left tibial fracture Chronic hyponatremia Shingles Anxiety Depression Gastroparesis Diverticulitis Asthma Epilepsy no longer on medication Seasonal allergies <Mili Alvarez PA-C - Last Filed: 09/15/24 19:16> Surgical History Surgical History: Surgical History History of left above knee amputation History of right shoulder replacement History of cholecystectomy History of left knee replacement History of hysterectomy History of open reduction and internal fixation (ORIF) procedure Left tibia and right ankle. History of appendectomy History of tonsillectomy <Mili Alvarez PA-C - Last Filed: 09/15/24 19:16> Family History Family History: Family History Mother Suicide Depression Heart disease Hypertension Heart failure Sibling Suicide Father Diabetes mellitus Emphysema lung <Mili Alvarez PA-C - Last Filed: 09/15/24 19:16> Social History Social History: Social History Social History: Surrogate medical decision maker: Martina Rodney, daughter. Code status: Full code. Smoking status: Never smoker Second hand tobacco smoke exposure: No Alcohol intake: never Substance use: never Substance use type: does not use Do You Feel Safe in your Home?: Yes Lack of Transportation: No Lack of Food: Never True Current Housing: I Have Housing Concerned About Future Housing: No Difficulty Paying Gas/Electric Bills: No Difficulty Paying for Meds: No Currently Unemployed: No Education: Decline to Answer Difficulty w/ Childcare or Family Care: No Living arrangements: [facility] Occupation/Education: retired Spiritual care concerns: No Agree to blood products: No <Mili Alvarez PA-C - Last Filed: 09/15/24 19:16> Exam 2 Narrative: GENERAL: Ill-appearing, obese with BMI of 33.0, somnolent. HEAD: Normocephalic, atraumatic. RESPIRATORY: Airway patent, respirations nonlabored. Coarse rhonchi in bases bilaterally. CARDIOVASCULAR: Tachycardic with regular rhythm without murmurs, rubs, or gallops. ABDOMINAL: Soft, nondistended. Normoactive BS. MUSCULOSKELETAL: No gross deformities. L AKA. SKIN: Warm, dry, flushed/borderline diaphoretic NEURO: Somnolent, unable to answer my questions or follow commands. Mumbles some words at times. Laying listless on stretcher. No ataxic movements. PSYCHIATRIC: Somnolent. <Mili Alvarez PA-C - Last Filed: 09/15/24 19:16> Course BROOD HATCHERY MANAGER/PA Physician Supervision This visit was performed by both a physician and an APC. I performed all aspects of the MDM as documented. <Robert Olvera MD - Last Filed: 09/15/24 17:57> Vital Signs Vital signs: Vital Signs Temperature 101.2 F H 09/15/24 10:04 Pulse Rate 135 H 09/15/24 10:04 Respiratory Rate 34 H 09/15/24 10:04 Blood Pressure 188/108 H 09/15/24 10:04 Pulse Oximetry 93 09/15/24 10:04 Temperature 99.0 F 09/15/24 18:20 Pulse Rate 121 H 09/15/24 18:20 Respiratory Rate 34 H 09/15/24 18:20 Blood Pressure 191/79 H 09/15/24 18:20 Pulse Oximetry 97 09/15/24 18:20 <Mili Alvarez PA-C - Last Filed: 09/15/24 19:16> Vital Signs Temperature 101.2 F H 09/15/24 10:04 Pulse Rate 135 H 09/15/24 10:04 Respiratory Rate 34 H 09/15/24 10:04 Blood Pressure 188/108 H 09/15/24 10:04 Pulse Oximetry 93 09/15/24 10:04 Temperature 99.0 F 09/15/24 18:20 Pulse Rate 121 H 09/15/24 18:20 Respiratory Rate 34 H 09/15/24 18:20 Blood Pressure 191/79 H 09/15/24 18:20 Pulse Oximetry 97 09/15/24 18:20 <Robert Olvera MD - Last Filed: 09/15/24 17:57> Medical Decision Making MDM Narrative Medical decision making narrative: Patient presented to ED from local nursing facility with report of fever, altered mental status. Patient was hypertensive, tachycardic, tachypneic, febrile upon arrival. Concerning for sepsis. Sepsis workup was initiated. Patient initially very somnolent, unable to answer any questions or follow commands. Laying listless. 30cc/kg fluid bolus ordered. Cbc with blood cell count of 19.9. Neutrophil predominance. No bandemia. CMP is unremarkable. Sodium is stable at 142. Stable electrolytes. Stable kidney function. Lactic acid within normal range at 1.7. Urine appears infectious. Does also show 2+ ketones. Fluids ongoing. Blood and urine cultures obtained. Patient is meeting criteria for sepsis. Will start broad-spectrum antibiotics given multiple recent hospitalizations. ABG w/o retention CT brain without acute findings. Chest x-ray is clear. EKG with sinus tachycardia, no significant ST changes. On re-evaluation, patient is more alert. Able to answer yes no questions, follow commands. States she is in no pain. States she began feeling ill this morning. Will be admitted for further evaluation and continued IV abx. Discussed case with Megan Moreira NP hospitalist, accepted patient for admission. <Mili Alvarez PA-C - Last Filed: 09/15/24 19:16> Medical Records Medical records reviewed: Yes I reviewed the external patient's medical records. <Mili Alvarez PA-C - Last Filed: 09/15/24 19:16> Vital Signs Vital Signs: Vital Signs Temperature 101.2 F H 09/15/24 10:04 Pulse Rate 135 H 09/15/24 10:04 Respiratory Rate 34 H 09/15/24 10:04 Blood Pressure 188/108 H 09/15/24 10:04 Pulse Oximetry 93 09/15/24 10:04 Temperature 99.0 F 09/15/24 18:20 Pulse Rate 121 H 09/15/24 18:20 Respiratory Rate 34 H 09/15/24 18:20 Blood Pressure 191/79 H 09/15/24 18:20 Pulse Oximetry 97 09/15/24 18:20 <Mili Alvarez PA-C - Last Filed: 09/15/24 19:16> Vital Signs Temperature 101.2 F H 09/15/24 10:04 Pulse Rate 135 H 09/15/24 10:04 Respiratory Rate 34 H 09/15/24 10:04 Blood Pressure 188/108 H 09/15/24 10:04 Pulse Oximetry 93 09/15/24 10:04 Temperature 99.0 F 09/15/24 18:20 Pulse Rate 121 H 09/15/24 18:20 Respiratory Rate 34 H 09/15/24 18:20 Blood Pressure 191/79 H 09/15/24 18:20 Pulse Oximetry 97 09/15/24 18:20 <Robert Olvera MD - Last Filed: 09/15/24 17:57> Lab Data Lab results reviewed: Yes I reviewed the patient's lab results. <Mili Alvarez PA-C - Last Filed: 09/15/24 19:16> Result diagrams: 09/15/24 10:24 09/15/24 10:24 <Mili Alvarez PA-C - Last Filed: 09/15/24 19:16> Labs: Lab Results 09/15/24 09/15/24 09/15/24 Range/Units 10:24 11:18 11:51 WBC 19.8 H (4.5-10.0) K/mm3 RBC 4.57 (4.2-5.4) M/mm3 Hgb 14.1 (12.0-15.0) g/dL Hct 42.2 (37.0-47.0) % MCV 92.3 (80-100) fl MCH 30.9 (26-34) pg MCHC 33.4 (32-36) g/dl RDW 15.4 H (11.5-14.5) % Plt Count 286 (150-375) k/mm3 MPV 10.4 (7.4-10.4) fl Immature Gran % (Auto) 0.6 H (0-0.5) % Neut % (Auto) 79.7 H (45.5-73.1) % Lymph % (Auto) 11.0 L (18.3-44.2) % Clinch % (Auto) 8.1 (2.6-8.5) % Eos % (Auto) 0.2 (0-4.4) % Baso % (Auto) 0.4 (0.2-1.2) % Lymph # (Auto) 2.17 (0.9-3.2) K/mm3 Clinch # (Auto) 1.6 H (0.1-0.6) K/mm3 Eos # (Auto) 0.0 (0-0.3) K/mm3 Baso # (Auto) 0.1 (0.0-0.1) K/mm3 Abs Immat Gran (auto) 0.11 H (0.00-0.031) K/mm3 Absolute Neuts (auto) 15.8 H (1.3-6.7) K/mm3 Absolute Nucleated RBC 0.000 (0.0-0.012) K/mm3 Nucleated RBC % 0.0 (0.0-0.2) % PT 14.9 H (11.1-14.7) Seconds INR 1.1 APTT 27.5 (22.3-36.8) Seconds Methemoglobin 0.2 (0-1.5) %THb Sodium 142 (137-145) mmol/L Potassium 4.8 (3.4-5.0) mmol/L Chloride 107 (98-107) mmol/L Carbon Dioxide 24 (22-30) mmol/L Anion Gap 11 (4-12) mmol/L BUN 25 H (7-17) mg/dL Creatinine 0.72 (0.7-1.0) mg/dL Estim Creat Clear Calc 69 ml/min Estimated GFR > 60 (59 - ) Glucose 130 H (65-110) mg/dL Lactic Acid 1.7 (0.7-2.0) mmol/L Calcium 9.2 (8.4-10.2) mg/dL Magnesium 1.8 (1.6-2.3) mg/dL Total Bilirubin 0.7 (0.2-1.3) mg/dL AST 38 H (14-36) U/L ALT 31 (6-35) U/L Alkaline Phosphatase 96 (38-126) U/L C-Reactive Protein 2.5 H (<1.0) mg/dL Total Protein 7.0 (6.3-8.2) g/dL Albumin 3.7 (3.5-5.1) g/dL Urine Color Yellow (Yellow) Urine Appearance Cloudy H (Clear) Urine pH 5.5 (5.0-9.0) Ur Specific [place] 1.018 (1.001-1.035) Urine Protein 2+ H (Negative) mg/dL Urine Glucose (UA) Negative (Negative) mg/dL Urine Ketones 2+ H (Negative) mg/dL Ur Blood (Man) Negative (Negative) Urine Nitrate Negative (Negative) Urine Bilirubin Negative (Negative) Urine Urobilinogen 0.2 (<2.0) mg/dL Leukocyte Esterase Rfl 2+ H (Negative) LEEANNE/UL Urine RBC 0-2 (0-2) /hpf Urine WBC >100 H (0-3) /hpf Ur Squamous Epith Cells Occasional (Few) /hpf Urine Bacteria None seen /hpf Urine Casts 0-2 Nasal MRSA (PCR) Not detected (NOT DETECTE) Influenza A (RT-PCR) Negative (Negative) Influenza B (RT-PCR) Negative (Negative) RSV (RT-PCR) Negative (Negative) SARS-CoV-2 RNA (RT-PCR) Negative (Negative) <Mili Alvarez PA-C - Last Filed: 09/15/24 19:16> Lab Results 09/15/24 09/15/24 09/15/24 Range/Units 10:24 11:18 11:51 WBC 19.8 H (4.5-10.0) K/mm3 RBC 4.57 (4.2-5.4) M/mm3 Hgb 14.1 (12.0-15.0) g/dL Hct 42.2 (37.0-47.0) % MCV 92.3 (80-100) fl MCH 30.9 (26-34) pg MCHC 33.4 (32-36) g/dl RDW 15.4 H (11.5-14.5) % Plt Count 286 (150-375) k/mm3 MPV 10.4 (7.4-10.4) fl Immature Gran % (Auto) 0.6 H (0-0.5) % Neut % (Auto) 79.7 H (45.5-73.1) % Lymph % (Auto) 11.0 L (18.3-44.2) % Clinch % (Auto) 8.1 (2.6-8.5) % Eos % (Auto) 0.2 (0-4.4) % Baso % (Auto) 0.4 (0.2-1.2) % Lymph # (Auto) 2.17 (0.9-3.2) K/mm3 Clinch # (Auto) 1.6 H (0.1-0.6) K/mm3 Eos # (Auto) 0.0 (0-0.3) K/mm3 Baso # (Auto) 0.1 (0.0-0.1) K/mm3 Abs Immat Gran (auto) 0.11 H (0.00-0.031) K/mm3 Absolute Neuts (auto) 15.8 H (1.3-6.7) K/mm3 Absolute Nucleated RBC 0.000 (0.0-0.012) K/mm3 Nucleated RBC % 0.0 (0.0-0.2) % PT 14.9 H (11.1-14.7) Seconds INR 1.1 APTT 27.5 (22.3-36.8) Seconds Methemoglobin 0.2 (0-1.5) %THb Sodium 142 (137-145) mmol/L Potassium 4.8 (3.4-5.0) mmol/L Chloride 107 (98-107) mmol/L Carbon Dioxide 24 (22-30) mmol/L Anion Gap 11 (4-12) mmol/L BUN 25 H (7-17) mg/dL Creatinine 0.72 (0.7-1.0) mg/dL Estim Creat Clear Calc 69 ml/min Estimated GFR > 60 (59 - ) Glucose 130 H (65-110) mg/dL Lactic Acid 1.7 (0.7-2.0) mmol/L Calcium 9.2 (8.4-10.2) mg/dL Magnesium 1.8 (1.6-2.3) mg/dL Total Bilirubin 0.7 (0.2-1.3) mg/dL AST 38 H (14-36) U/L ALT 31 (6-35) U/L Alkaline Phosphatase 96 (38-126) U/L C-Reactive Protein 2.5 H (<1.0) mg/dL Total Protein 7.0 (6.3-8.2) g/dL Albumin 3.7 (3.5-5.1) g/dL Urine Color Yellow (Yellow) Urine Appearance Cloudy H (Clear) Urine pH 5.5 (5.0-9.0) Ur Specific [place] 1.018 (1.001-1.035) Urine Protein 2+ H (Negative) mg/dL Urine Glucose (UA) Negative (Negative) mg/dL Urine Ketones 2+ H (Negative) mg/dL Ur Blood (Man) Negative (Negative) Urine Nitrate Negative (Negative) Urine Bilirubin Negative (Negative) Urine Urobilinogen 0.2 (<2.0) mg/dL Leukocyte Esterase Rfl 2+ H (Negative) LEEANNE/UL Urine RBC 0-2 (0-2) /hpf Urine WBC >100 H (0-3) /hpf Ur Squamous Epith Cells Occasional (Few) /hpf Urine Bacteria None seen /hpf Urine Casts 0-2 Nasal MRSA (PCR) Not detected (NOT DETECTE) Influenza A (RT-PCR) Negative (Negative) Influenza B (RT-PCR) Negative (Negative) RSV (RT-PCR) Negative (Negative) SARS-CoV-2 RNA (RT-PCR) Negative (Negative) <Robert Olvera MD - Last Filed: 09/15/24 17:57> ABG Data ABG results: 09/15/24 11:18 Puncture Site Left brachial ABG pH 7.462 H ABG pCO2 33.0 L ABG pO2 67.4 L ABG PO2/FiO2 Ratio 3.21 ABG HCO3 23.0 ABG O2 Saturation 94.6 L ABG O2 Content 17.3 ABG Base Excess -0.1 A-a Gradient 42.8 Oxyhemoglobin 92.5 Carboxyhemoglobin 0.7 Reduced Hemoglobin 6.6 H Total Hemoglobin 13.3 O2 Delivery Device Room air O2 Liters/Min Not Reportable FiO2 21 <Mili Alvarez PA-C - Last Filed: 09/15/24 19:16> 09/15/24 11:18 Puncture Site Left brachial ABG pH 7.462 H ABG pCO2 33.0 L ABG pO2 67.4 L ABG PO2/FiO2 Ratio 3.21 ABG HCO3 23.0 ABG O2 Saturation 94.6 L ABG O2 Content 17.3 ABG Base Excess -0.1 A-a Gradient 42.8 Oxyhemoglobin 92.5 Carboxyhemoglobin 0.7 Reduced Hemoglobin 6.6 H Total Hemoglobin 13.3 O2 Delivery Device Room air O2 Liters/Min Not Reportable FiO2 21 <Robert Olvera MD - Last Filed: 09/15/24 17:57> Attestation: I personally reviewed and interpreted this ABG as follows: <Mili Alvarez PA-C - Last Filed: 09/15/24 19:16> Imaging Data Attestation: I personally reviewed and interpreted this imaging study as follows: < Mili Alvarez PA-C - Last Filed: 09/15/24 19:16> Radiologist's impression: ITS Impressions Head CT 09/15/24 11:48 IMPRESSION: 1. 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 No acute intracranial process. 2. Age-related changes including moderate diffuse on loss and mild scattered white matter hypoattenuation consistent with chronic small vessel ischemic disease. Chest X-Ray 09/15/24 11:51 IMPRESSION: 1. No acute cardiopulmonary disease. <Mili Alvarez PA-C - Last Filed: 09/15/24 19:16> ECG Data EKG #1: Attestation: I personally reviewed and interpreted this ECG as follows: <Mili Alvarez PA-C - Last Filed: 09/15/24 19:16> ECG completion date: 09/15/24 <Mili Alvarez PA-C - Last Filed: 09/15/24 19:16> ECG completion time: 12:17 <Mili Alvarez PA-C - Last Filed: 09/15/24 19:16> EKG Interpretation: tachycardia (117), sinus rhythm and non-specific ST changes <Mili Alvarez PA-C - Last Filed: 09/15/24 19:16> Discharge Plan Discharge Clinical Impression: AMS (altered mental status) Qualifiers: Altered mental status type: unspecified Qualified Code(s): R41.82 - Altered mental status, unspecified Sepsis Qualifiers: Sepsis type: sepsis due to unspecified organism Sepsis acute organ dysfunction status: unspecified Qualified Code(s): A41.9 - Sepsis, unspecified organism UTI (urinary tract infection) Qualifiers: Urinary tract infection type: acute cystitis Hematuria presence: without hematuria Qualified Code(s): N30.00 - Acute cystitis without hematuria <Mili Alvarez PA-C - Last Filed: 09/15/24 19:16> Patient Disposition: Still a Patient <Mili Alvarez PA-C - Last Filed: 09/15/24 19:16> Condition: Stable <Mili Alvarez PA-C - Last Filed: 09/15/24 19:16>
[2024-09-15 10:35] LABS: Basophils Absolute Auto 0.1 K/mm3 (0.0-0.1); Basophils Percent Auto 0.4 % (0.2-1.2); Eosinophils Percent Auto 0.2 % (0-4.4); Hematocrit 42.2 % (37.0-47.0); Hemoglobin 14.1 g/dL (12.0-15.0); Immature Granulocyte Absolute 0.11 K/mm3 (0.00-0.031); Immature Granulocyte Percent A 0.6 % (0-0.5); Lymphocytes Absolute Auto 2.17 K/mm3 (0.9-3.2); Mean Corpuscular HGB Conc 33.4 g/dl (32-36); Mean Corpuscular Hemoglobin 30.9 pg (26-34); Mean Corpuscular Volume 92.3 fl (80-100); Mean Platelet Volume 10.4 fl (7.4-10.4); Monocytes Absolute Auto 1.6 K/mm3 (0.1-0.6); Monocytes Percent Auto 8.1 % (2.6-8.5); Neutrophils Absolute Auto 15.8 K/mm3 (1.3-6.7); Neutrophils Percent Auto 79.7 % (45.5-73.1); Platelet Count Result 286 k/mm3 (150-375); Red Blood Count 4.57 M/mm3 (4.2-5.4); Red Cell Distribution Width 15.4 % (11.5-14.5); White Blood Count 19.8 K/mm3 (4.5-10.0)
[2024-09-15 10:46] LABS: INR 1.1; Prothrombin Time 14.9 Seconds (11.1-14.7)
[2024-09-15 10:47] LABS: Partial Thromboplastin Time 27.5 Seconds (22.3-36.8)
[2024-09-15 10:49] LABS: Add Urine Microscopic? YES; Appearance Urine Cloudy (Clear); Bacteria Urine None Seen /hpf; Bilirubin Urine Negative (Negative); Blood Urine Negative (Negative); Color Urine Yellow (Yellow); Glucose Urine UA Negative (Negative); Ketones Urine 2+ mg/dL (Negative); Leukocyte Esterase Ur 2+ LEU/UL (Negative); Nitrate Urine Negative (Negative); Non Pathogenic Casts 0-2; Protein Urine 2+ mg/dL (Negative); RBC Urine 0-2 /hpf (0-2); Specific Grav Ur 1.018 (1.001-1.035); Squamous Epithelial Cell Urine Occasional /hpf (Few); Urobilinogen Urine 0.2 mg/dL (<2.0); WBC Urine >100 /hpf (0-3); pH Urine 5.5 (5.0-9.0)
--- OUTSIDE RECORDS SUMMARY | 2024-09-15 10:50 | XMS_ITS | Continuity of Care Document ---
Author Organization [email or web address] [place] Address [address] [place] [address] Phone Care Team Providers [employer] Salesperson Name Role Phone Hernando Velasquez MD Unavailable [...] tablet twice daily as needed - Active [place] Nasal 0.65 % spray aerosol 2 sprays [...] F IRST INJ TDAP INTRAMUSCULAR USE OFFICE [id number] SYST BP >= 140 MM HG6 IT [...] Preservative And A ntibiotic Free IM OFFICE [id number]-[id number] SYST BP >= 140 MM HG6 IT DIAST BP < 80 MM HG ROUTINE VENIPUNCTURE IL CBC, INC PLATELETS AND DIFFERENTIAL COMPREHEN METABOLIC PANEL CMP 3 LIPID PANEL Pt inelig neg scrn depres FALL RISK ASSESSMENT DOC'D PRES/ABSN URINE INCON ASSESS PREVENTATIVE-EST: 65 & OVER SYST BP >= 140 MM HG6 IT DIAST BP < 80 MM HG ROUTINE VENIPUNCTURE IL OFFICE [id number] SYST BP >= 140 MM HG6 IT DIAST BP 80-89 MM HG BASIC METABOLIC PANEL(BMP) ROUTINE VENIPUNCTURE BASIC METABOLIC PANEL(BMP) ROUTINE VENIPUNCTURE BASIC METABOLIC PANEL(BMP) ROUTINE VENIPUNCTURE IMMUN ADMIN (INC PERCUTANEOUS) SINGLE, F IRST INJ Flu Vac, quad (RIV4), Preservative And A ntibiotic Free IM OFFICE [id number] BODY MASS INDEX DOCD SYST BP >= 140 MM HG6 IT DIAST BP >= 90 MM HG BASIC METABOLIC PANEL(BMP) ROUTINE VENIPUNCTURE FORM CHARGE SYST BP >= 140 MM HG6 IT DIAST BP 80-89 MM HG OFFICE [id number] BODY MASS INDEX DOCD SYST BP >= 140 MM HG6 IT DIAST BP 80-89 MM HG PREVENTATIVE-EST: 65 & OVER BODY MASS INDEX DOCD SYST BP >= 140 MM HG6 IT DIAST BP 80-89 MM HG CBC, INC PLATELETS AND DIFFERENTIAL COMPREHEN METABOLIC PANEL CMP HEMOGLOBIN A1C HGA1C, GLYCO LIPID PANEL MICROALBUMIN, QN (URINE) CREATININE, (U-R) ROUTINE VENIPUNCTURE OFFICE [id number] CBC, INC PLATELETS AND DIFFERENTIAL COMPREHEN METABOLIC PANEL CMP 1 HEMOGLOBIN A1C HGA1C, GLYCO ROUTINE VENIPUNCTURE OFFICE [id number] DSCHRG MED/CURRENT MED MERGE OFFICE [id number] BASIC METABOLIC PANEL(BMP) ROUTINE VENIPUNCTURE OFFICE [id number] BASIC METABOLIC PANEL(BMP) CREATININE, (U-R) URINALYSIS, DIPSTICK (UA) - Office Lab O ROUTINE VENIPUNCTURE BASIC METABOLIC PANEL(BMP) ROUTINE VENIPUNCTURE Admin influenza virus vac Flu Vac, quad (RIV4), Preservative And A ntibiotic Free IM BASIC METABOLIC PANEL(BMP) ROUTINE VENIPUNCTURE OFFICE [id number] BASIC METABOLIC PANEL(BMP) DRUG TEST (ANY NUMBER [...] Diagnoses Date Provider Providers Copied on Encounter [facility], [address], [place], [place], [address] , [place] tel:[phone] [facility] No Information 5 [place]er Hernando. 4 [facility], [place], [place], [address], [place]. tel:[phone] [facility], [address], [place], [place], [address] , [place] tel: [phone] [facility] [place] No Information 5 [place]er Hernando. 4 [place], [place], [address], [place]. tel:[phone] [facility], [address], [place], [place], [address] , [place] tel: [phone] [facility] [place] No Information 4 Dejesus Kay. 4 [place], [address], [place]. tel:[phone] [facility], [address], [place], [place], [address] , [place] tel: [phone] [facility] [place] No Information 4 Dejesus Kay. 4 [place], [address], [place]. tel:[phone] [facility], [address], [place], [place], [address] , [place] tel: [phone] [facility] [place] No Information 4 [place]er Hernando. 4 [place], [address], [place]. tel: [phone] [facility], [address], [place], [place], [address] , [place] tel: [phone] [facility] [place] No Information 4 [place]er Hernando. 4 [place], [address], [place]. tel:[phone] [facility], [address], [place], [place], [address] , [place] tel: [phone] [facility] [place] No Information 4 [place]er Hernando. 4 [place], [address], [place]. tel: [phone] [facility] [place], [address], [place], [place], [address] , [place] tel: [phone] [facility] [place] No Information 4 [place]er Hernando. 4 [place], [address], [place]. tel: [phone] [facility] [place], [address], [place], [place], [address] , [place] tel: [phone] [facility] [place] No Information 4 [place]er Hernando. 4 [place], [address], [place]. tel: [phone] [facility] [place], [address], [place], [place], [address] , [place] tel: [phone] [facility] [place] No Information 4 Dejesus Kay. 4 [place], [address], [place]. tel: [phone] [facility] [place], [address], [place], [place], [address] , [place] tel: [phone] [facility] [place] No Information 4 [place]er Hernando. 4 [place], [address], [place]. tel: [phone] [facility] [place], [address], [place], [place], [address] , [place] tel: [phone] [facility] [place] No Information 4 [place]er Hernando. 4 [place], [address], [place]. tel: [phone] [facility] [place], [address], [place], [place], [address] , [place] tel: [phone] [facility] [place] No Information 4 [place]er Hernando. 4 [place], [address], [place]. tel:[phone] [facility] [place], [address], [place], [place], [address] , [place] tel: [phone] [facility] No Information 4 Dixon Dixon. 4 [place], [address], [place]. tel:[phone] [facility], [address], [place], [place], [address] , [place] tel: [phone] [facility] No Information 4 English Villagomez. 4 [place], [address], [place]. tel:[phone] [facility], [address], [place], [place], [address] , [place] tel: [phone] [facility] No Information 4 Ben Martinin. [address] [facility], [address] [address], [place], [place], [address], [place]. [phone] Referring Provider: Hernando Velasquez, 4 [place], [address] . tel:[phone] OFFICE IXQCW-EXA-QF PANDED [facility], [address], [place], [place], [address] , [place] tel: [phone] [facility] hyponatremmia (chief complaint) Hyponatremia 4 English Villagomez. 4 [place], [place], [address], [place]. [phone] Referring Provider: Hernando Velasquez, 4 [place], [address] . tel:[phone] [facility], [address], [place], [place], [address] , [place] tel: [phone] [facility] No Information 4 English Villagomez. 4 [place], [address], [place]. tel:[phone] [facility], [address], [place], [place], [address] , [place] tel: [phone] [facility] No Information 4 English Villagomez. 4 [place], [place], [address], [place]. [phone] [facility], [address], [place], [place], [address] , [place] tel: [phone] [facility] Encounter for general adult medical examination without abnormal findingsEssen tial (primary) hypertensionH yperlipidemia , unspecified Oct- 4 Ben Albert. [address] [facility], [address], [address], [place]. tel:[phone] Referring Provider: Hernando Velasquez, 4 [place], [address] . tel:[phone] PREVENTATIVE -EST: 65 & OVER [facility] [place], [address], [place], [place], [address] , [place] tel: [phone] [facility] PX (chief complaint) Encounter for general adult medical examination without abnormal findingsEssen tial hypertensionC OPD with asthmaChronic GERDGAD (generalized anxiety disorder)Cere bral atrophyHistor y of above-knee amputation of left lower extremityEnco unter for screening for malignant neoplasm of colon Oct- 4 English Villagomez. 4 [place], [place], [address], [place]. tel:[phone] Referring Provider: Hernando Velasquez, 4 [place], [address] . tel:[phone] [email or web address] [place], [address], [place], [place], [address] , [place] tel: [phone] [facility] No Information 4 English Villagomez. 4 [place], [place], [address], [place]. [phone] [facility], [address], [place], [place], [address] , tel: [phone] [facility] No Information 3 Ben Albert. [address] [facility], [address], [address], [place]. [phone] Referring Provider: Hernando Velasquez, [place], [address] . tel:[phone] OFFICE TZKYZ-KNL-ZV TAILED [facility], [address], [place], [place], [address] , tel: [phone] [facility] chronic conditions (chief complaint) COPD with asthmaGAD (generalized anxiety disorder)Ess ntial hypertensionC hronic GERD 3 English Villagomez. 4 [place], [address], [place]. tel:[phone] Referring Provider: [place], [address] . tel:[phone] [facility], [address], [place], [place], [address] , tel: [phone] [facility] Vitamin D deficiency 3 English Villagomez. [address] [place] [address], [address], [place]. tel:[phone] [facility], [address], [place], [place], [address] , [place] tel: [phone] [facility] No Information 3 Ben Price. [address], [address], [place]. tel:[phone] Referring Provider: [place], [address] . tel:[phone] PREVENTATIVE -EST: 65 & OVER [facility], [address], [place], [place], [address] , [place] tel: [phone] [facility] px (chief complaint) History of above-knee amputation of left lower extremityChro kamryn hypoxemic respiratory failureEssent ial hypertensionC erebral atrophyChroni c GERDCOPD with asthmaEncount er for general adult medical examination without abnormal findingsEncou nter for screening mammogram for malignant neoplasm of breast 3 English Villagomez. [address] [place] [address], [address], [place]. tel:[phone] Referring Provider: Hern[place], [address] . tel:[phone] [facility] [place], [address], [place], [place], [address] , [place] tel: [phone] [facility] [place] Herpesviral infection of urogenital system 3 English Villagomez. [address], [address], [place]. tel:[phone] [facility] [place], [address], [place], [place], [address] , [place] tel: [phone] [facility] [place] No Information 3 English Villagomez. [address], [address], [place]. tel:[phone] [facility] [place], [address], [place], [place], [address] , [place] tel: [phone] [facility] [place] Follow-up exam 3 English Villagomez. [place], [address], [place]. tel:[phone] OFFICE XKMQU-SUV-LK PANDED [facility], [address], [place], [place], [address] , [place] tel: [phone] [place] Nocturnal leg cramps 2 [place]er Hernando. [address], [address], [place]. tel:[phone] Referring Provider: [place], [address] . tel:[phone] [facility], [address], [place], [place], [address] , [place] tel: [phone] [place] Hyponatremia 2 [place]er Hernando. [place], [address], [place]. tel:[phone] Referring Provider: [place], [address] . tel:[phone] [email or web address], [address], [place], [place], [address] , tel: [phone] [facility] Low sodium levels 2 English Villaogmez. [place], [place], [address], . tel:[phone] Referring Provider: Hernando Velasquez, [place], [address] . tel:[phone] [email or web address], [address], [place], [place], [address] , tel: [phone] [facility] Essential hypertension 2 English Villagomez. [place], [place], [address], [place]. tel:[phone] Referring Provider: [place], [address] . tel:[phone] OFFICE KCUQY-VVV-KZ TAILED [facility], [address], [place], [place], [address] , tel: [phone] [facility] Chronic Conditions (chief complaint) Body mass index [BMI] 36.0-36.9, adultEssentia l (primary) hypertensionM igraine, unspecified, not intractable, without status migrainosusMo rbid (severe) obesity due to excess caloriesAorti c atheroscleros is 2 English Villagomez. [place], [address], . tel:[phone] Referring Provider: [place], [address] . tel:[phone] [email or web address], [address], [place], [place], [address] , tel: [phone] Aaron Cough, persistent Mar- 2 English Villagomez. [place], [address], [place]. tel:[phone] [email or web address], [address], [place], [place], [address] , tel: [phone] [facility] No Information 2 English Villagomez. 4 [place], [address], [place]. tel:[phone] [email or web address], [address], [place], [place], [address] , tel: [phone] [facility] No Information 2 [place]er Hernando. [place], [address], . tel:[phone] Referring Provider: [place], [address] . tel:[phone] OFFICE XXJGG-GIO-TD PANDED [email or web address], [address], [place], [place], [address] , tel: [phone] Aaron Discuss Power chair (chief complaint) History of above-knee amputation of left lower extremityChro kamryn hypoxemic respiratory failure 2 English Villagomez. [place], [address], . tel:[phone] Referring Provider: [place], [address] . tel:[phone] [email or web address], [address], [place], [place], [address] , tel: [phone] Aaron Encounter for screening for malignant neoplasm of colonEncounte r for screening for malignant neoplasm of colon Oct-0 2 English Villagomez. [place], [address], . tel:[phone] PREVENTATIVE -EST: 65 & OVER [email or web address], [address], [place], [place], [address] , tel: [phone] [facility] PX (chief complaint) Annual physical examChronic hypoxemic respiratory failureEssent ial (primary) hypertensionH istory of above-knee amputation of left lower extremityChro kamryn GERDCerebral atrophyCOPD with asthmaLow back pain, unspecifiedBo dy mass index [BMI] 35.0-35.9, adultDecrease d pulseMixed hyperlipidemi aHyperglycemi a Sep- 2 [place]er Hernando. [address] [place] [address], [address], . tel:[phone] Referring Provider: Hernando Velasquez, [place], [address] . tel:[phone] OFFICE HFGUA-COQ-GA [facility], [address], [place], [place], [address] , [phone] [facility] and alf f/u (chief complaint) Body mass index [BMI] 33.0-33.9, adultChronic hypoxemic respiratory failureHistor y of above-knee amputation of left lower extremityChro kamryn GERDCerebral atrophyEssent ial (primary) hypertensionS tage 3 chronic kidney disease, unspecified whether stage 3a or 3b CKDCOPD with asthmaHyperli pidemia, unspecified hyperlipidemi a typeAortic atheroscleros isOther chronic painGAD (generalized anxiety disorder)Hype rglycemiaPorp hyria 1 English Villagomez. 4 [place], [place], [address], . tel:[phone] Referring Provider: Hernando Velasquez, [place], [address] . tel:[phone] [facility], [address], [place], [place], [address] , [phone] [place] No Information 1 English Villagomez. 4 [place], [place], [address], . tel:[phone] OFFICE PSAEU-NQO-VA [facility], [address], [place], [place], [address] , tel:[phone] [place] telehealth (chief complaint)OV for form (chief complaint)Shed Hand kamryn Conditions (chief complaint) Unsteady gaitAortic atheroscleros isEssential (primary) hypertensionC erebral atrophyChroni c GERDNeuropath yChronic hypoxemic respiratory failure 0 Dejesus Kay. 4 [place], [place], [address], . tel:[phone] Referring Provider: [place], [address] . tel:[phone] [facility], [address], [place], [place], [address] , [place] tel: [phone] [place] Breast calcification s 0- 0 [place]er Hernando. 4 [place], [place], [address], [place]. tel:[phone] [facility], [address], [place], [place], [address] , tel: [phone] [place] No Information 9 [place]er Hernando. 4 [place], [place], [address], [place]. tel:[phone] Referring Provider: [place], [address] . tel:[phone] OFFICE FHYET-EQD-GG TAILED [facility], [address], [place], [place], [address] , tel: [phone] [facility] f/u (chief complaint) Syncope, unspecified syncope typeChronic low back pain, unspecified back pain laterality, unspecified whether sciatica presentOther chronic painAKI (acute kidney injury)Hyperk alemiaBody mass index (BMI) 40.0-44.9, adultMorbid (severe) obesity due to excess calories 9 Dejesus Kay. [address] [place], [place], [address], [place]. tel:[phone] Referring Provider: [place], [address] . tel:[phone] OFFICE EKSBE-OXH-HI PANDED [facility], [address], [place], [place], [address] , [place] tel: [phone] [place] 1 week follow up (chief complaint) LUAN (acute kidney injury) 9 English Villagomez. [address] [place] [address], [address], [place]. tel:[phone] Referring Provider: [place], [address] . tel:[phone] [facility], [address], [place], [place], [address] , tel: [phone] [place] No Information English John. [place], [address], . [phone] [facility], [address], [place], [place], [address] , tel: [phone] Aaron Flu shot (chief complaint) Essential hypertensionE ncounter for immunization English John. [place], [address], [place]. [phone] Referring Provider: [place], [address] . [phone] [facility], [address], [place], [place], [address] , tel: [phone] Aaron Essential hypertension English John. [place], [address], [place]. tel:[phone] Referring Provider: [place], [address] . tel:[phone] OFFICE GENUX-QHT-LY [facility], [address], [place], [place], [address] , tel: [phone] Aaron 6 month (chief complaint) Essential (primary) hypertensionC hronic GERDCerebral atrophyBody mass index (BMI) 40.0-44.9, adultMorbid (severe) obesity due to excess caloriesNeuro pathyLong term current use of opiate analgesic [place]er Hernando. [address], [address], [place]. tel:[phone] Referring Provider: [place], [address] . tel:[phone] [facility], [address], [place], [place], [address] , tel: [phone] Aaron Breast calcification s English Villagomez. [place], [place], [address], . tel:[phone] [email or web address], [address], [place], [place], [address] , tel: [phone] [place] No Information English Villagomez. [address], [address], . tel:[phone] [email or web address], [address], [place], [place], [address] , [place] tel: [phone] [place] Hormone replacement therapySympto ms such as flushing, sleeplessness , headache, lack of concentration , associated with natural (age-related) menopause English Villagomez. [place], [address], [place]. tel:[phone] [email or web address], [address], [place], [place], [address] , tel: [phone] Aaron sore under Left arm (chief complaint) Abscess of axilla English Villagomez. [place], [place], [address], [place]. tel:[phone] Referring Provider: [place], [address] . tel:[phone] [email or web address], [address], [place], [place], [address] , tel: [phone] Aaron sores under left arm (chief complaint) Abscess of axilla 0 English Villagomez. [place], [place], [address], [place]. tel:[phone] Referring Provider: [place], [address] . tel:[phone] [email or web address], [address], [place], [place], [address] , tel: [phone] Aaron SeizureMixed hyperlipidemi aEssential (primary) hypertensionC hronic GERDAortic atheroscleros isEsophageal strictureNeur opathy [place]er Hernando. [address], [place], [address], . tel:[phone] Referring Provider: Hernando Velasquez, [place], [address] . tel:[phone] [facility], [address], [place], [place], [address] , tel: [phone] [place] No Information 8 [place]er Hernando. [place], [place], [address], [place]. [phone] Referring Provider: Hernando Velasquez, [place], [address] . tel:[phone] [email or web address], [address], [place], [place], [address] , tel: [phone] Aaron Body mass index (BMI) 33.0-33.9, adultEssentia l (primary) hypertensionC OPD with asthmaChronic GERDHyperlipi demia, unspecified hyperlipidemi a typeInsomnia disorder, with non-sleep disorder mental comorbidity, recurrent [place]er Hernando. [place], [place], [address], [place]. tel:[phone] Referring Provider: Hernando Velasquez, [place], [address] . tel:[phone] [email or web address], [address], [place], [place], [address] , tel: [phone] Aaron Abscess of neck 8 [place] Islander Hernando. [place], [address], [place]. tel:[phone] Referring Provider: [place], [address] . tel:[phone] [email or web address], [address], [place], [place], [address] , tel: [phone] [place] Chronic respiratory failure with hypoxiaAortic atheroscleros isGAD (generalized anxiety disorder)Esse ntial (primary) hypertension 8 English Villagomez. [place], [place], [address], [place]. [phone] Referring Provider: Hernnado [place], [address] . tel:[phone] [email or web address], [address], [place], [place], [address] , tel: [phone] Aaron retirement current use of opiate analgesicSore throat 8 English Villagomez. [place], [place], [address], [place]. tel:[phone] Referring Provider: Hernando [place], [address] . tel:[phone] [email or web address], [address], [place], [place], [address] , tel: [phone] Aaron Hyponatremia 8 English Villagomez. [place], [place], [address], [place]. tel:[phone] Referring Provider: [place], [address] . tel:[phone] [email or web address], [address], [place], [place], [address] , tel: [phone] [place] Chronic respiratory failure with hypoxiaUnspec ified convulsionsEs sential (primary) hypertensionM orbid (severe) obesity due to excess caloriesGastr oparesis 8 [place] Islander Hernando. [place], [place], [address], [place]. tel:[phone] Referring Provider: [place], [address] . tel:[phone] [email or web address], [address], [place], [place], [address] , tel: [phone] Aaron SOB (shortness of breath) 7 [place] Islander Hernando. [place], [place], [address], [place]. tel:[phone] [email or web address], [address], [place], [place], [address] , [place] tel: [phone] [place] Morbid obesity due to excess caloriesSeizu reChronic respiratory failure, unspecified whether with hypoxia or hypercapniaOt her and unspecified hyperlipidemi aAortic atheroscleros isOsteoarthri tis of knee, unspecifiedBi polar 1 disorderEssen tial tremor 7 [place]er Hernando. [address] [place], [place], [address], [place]. tel:[phone] Referring Provider: Hernando Velasquez, [address] [place], [address] . tel:[phone] [email or web address], [address], [place], [place], [address] , tel: [phone] [place] Chronic respiratory failure, unspecified whether with hypoxia or hypercapniaBi polar 1 disorderClass 3 obesity with serious comorbidity and body mass index (BMI) of 40.0 to 44.9 in adult, unspecified obesity typeSeizureSO B (shortness of breath)Benign essential hypertension 7 English Villagomez. [address] [place], [place], [address], [place]. tel:[phone] Referring Provider: Hernando Velasquez, [place], [address] . tel:[phone] [email or web address], [address], [place], [place], [address] , tel: [phone] [place] Weakness 7 Eder Kennedy. [address], [facility], [place]. tel:[phone] [email or web address], [address], [place], [place], [address] , [place] tel: [phone] [place] Weakness 7 Eder Kennedy. [address] [address], [place], [facility], [place]. tel:[phone] [email or web address], [address], [place], [place], [address] , tel: [phone] [place] Essential hypertensionM ixed hyperlipidemi aModerate episode of recurrent major depressive disorderSeizu reGastroesoph ageal reflux disease, esophagitis presence not specifiedMorb id obesity due to excess caloriesSyndr ome of inappropriate antidiuretic hormone 7 Eder Kennedy. [address] [place] [address], [facility], . tel:[phone] Referring Provider: Marcia Gaines, [address] [place] [address], [facility]. tel:[phone] [email or web address], [address], [place], [place], [address] , tel: [phone] Aaron Screening mammogram, encounter for Eder Kennedy. [address] [place] [address], [facility], . tel:[phone] [email or web address], [address], [place], [place], [address] , tel: [phone] Aaron SOB (shortness of breath)Acute rhinosinusiti s [facility]. [address] [place] [address], [id number], [place]. tel:[phone] Referring Provider: Marcia Gaines, [address] [place] [address], [facility]. tel:[phone] [email or web address], [address], [place], [place], [address] , tel: [phone] Aaron SeizureEssent ial hypertensionH yponatremiaMi xed hyperlipidemi aMorbid obesity due to excess caloriesModer ate episode of recurrent major depressive disorderLong term use of drug 6 Eder Kennedy. [address] [place] [address], [facility], [place]. tel:[phone] Referring Provider: Marcia Gaines, [address] [place] [address], [facility]. tel:[phone] [email or web address], [address], [place], [place], [address] , [place] tel: [phone] Lawrence SOB (shortness of breath) Nov-0 6 Eder Kennedy. [address] [facility], [facility], [place], [address], [place]. tel: [phone] [facility], [address], [place], [place], [address] , [place] tel: [phone] Lawrence Pathological fracture, left ankle, sequela Sep-2 8- 6 Eder Kennedy. [address] [facility], [address], [place], [address], [place]. tel: [phone] [facility], [address], [place], [place], [address] , tel: [phone] Lawrence Pathological fracture, left ankle, sequela Sep-2 3 6 Eder Kennedy. [address] [facility], [facility], [place], [facility], [place]. tel: [phone] [facility], [address], [place], [place], [address] , tel: [phone] Lawrence Pathological fracture, left ankle, sequela Sep-1 6 Eder Kennedy. [address] [address], [place], [address], [place]. tel: [phone] [facility], [address], [place], [place], [address] , [place] tel: [phone] Lawrence SANTI (obstructive sleep apnea) November- 6 Giovanny Dela Cruz. [address] [place], [place], [address]. tel: [phone] [facility], [address], [place], [place], [address] , [place] tel: [phone] Lawrence Carpal tunnel syndrome, unspecified upper limb Apr-1 6 Meg Toney. [address] [place], [place], [address], [place]. tel: [phone] [facility], [address], [place], [place], [address] , [place] tel: [phone] Lawrence Osteoarthriti s of knee, unspecified 6 Meg Toney. [address] [place], [address], [place]. tel:[phone] [email or web address], [address], [place], [place], [address] , [place] tel: [phone] Lawrence Chronic, continuous use of opioidsOther and unspecified hyperlipidemi aImpaired fasting glucoseSleep apnea, unspecified typeEssential (primary) hypertensionF yanci Lane resis 6 Meg Toney. [address] [place], [place], [address], [place]. tel:[phone] Referring Provider: Feng Whitley, [address] [place], [address] . tel:[phone] [email or web address], [address], [place], [place], [address] , [place] tel: [phone] Lawrence Impaired fasting glucoseOther and unspecified hyperlipidemi aChronic, continuous use of opioids 6 Meg Toney. [address] [place], [address], [place]. tel:[phone] Referring Provider: Feng Whitley, [address] [place], [address] . tel:[phone] [email or web address], [address], [place], [place], [address] , [place] tel: [phone] Lawrence Lung nodule seen on imaging study 6 Meg Toney. [address] [place], [address], [place]. tel:[phone] [email or web address], [address], [place], [place], [address] , [place] tel: [phone] Lawrence Sleep apnea, unspecified type 6 Meg Toney. [address] [place], [address], [place]. tel:[phone] [email or web address], [address], [place], [place], [address] , [place] tel: [phone] Lawrence Syndrome of inappropriate antidiuretic hormone 5 Meg Toney. [address] [place], [address], [place]. tel:[phone] Referring Provider: Feng Whitley, [address] [place], [address] . tel:[phone] [facility], [address], [place], [place], [address] , [place] tel: [phone] Lawrence Low serum sodiumSyndrom e of inappropriate antidiuretic hormone 5 Meg Toney. [address] [place], [address], [place]. tel:[phone] [facility], [address], [place], [place], [address] , tel: [phone] Lawrence Low sodium levels 5 Meg Toney. [address] [place], [place], [address], [place]. tel:[phone] Referring Provider: Feng Whitley, [address] [place], [address] . tel:[phone] [facility], [address], [place], [place], [address] , [place] tel: [phone] Lawrence DermatitisEss ential (primary) hypertensionE ncntr for general adult medical exam w/o abnormal findingsHypon atremia 0 5 Torin John. [address] [place], [address], [place]. tel:[phone] Referring Provider: Feng Whitley, [address] [place], [address] . tel:[phone] [facility], [address], [place], [place], [address] , [place] tel: [phone] Lawrence Sleep apnea, unspecified 5 Meg Toney. [address] [place], [address], [place]. tel:[phone] [facility], [address], [place], [place], [address] , [place] tel: [phone] Lawrence Hyperosmolali ty and/or hypernatremia Unspecified disease of white blood cells 5 Meg Toney. [address] [place], [place], [address], [place]. tel:[phone] Referring Provider: Feng Whitley, [address] [place], [address] . tel:[phone] [facility], [address], [place], [place], [address] , [place] tel: [phone] Lawrence Insomnia with sleep apnea, unspecifiedBe nign essential hypertensionB ackache, unspecifiedOt her and unspecified hyperlipidemi aOsteoarthros is, generalized, involving unspecified siteEsophagea l refluxOther convulsionsRi ght knee DJDAnalgesic useRoutine general medical examination at a health care facility Mar- 5 Meg Toney. [address] [place], [place], [address], [place]. [phone] Referring Provider: Feng Whitley, [address] [place], [address] . tel:[phone] [facility], [address], [place], [place], [address] , [place] tel: [phone] Lawrence Impaired fasting glucose Mar-0 5 Meg Toney. [address] [place], [address], [place]. [phone] Referring Provider: Feng Whitley, [address] [place], [address] . tel:[phone] [facility], [address], [place], [place], [address] , [place] tel: [phone] Lawrence Benign essential hypertensionU nspecified idiopathic peripheral neuropathyIns omnia with sleep apnea, unspecifiedOt her convulsionsIr ritable bowel syndromeGenit al herpes, unspecified Fe 5 Torin John. [address] [place], [address], [place]. tel:[phone] Referring Provider: Feng Whitley, [address] [place], [address] . tel:[phone] [facility], [address], [place], [place], [address] , [place] tel: [phone] Lawrence No Information Apr- 4 Meg Toney. [address] [place], [place], [address], [place]. tel:[phone] Referring Provider: Feng Whitley, [address] [place], [address] . tel:[phone] [facility], [address], [place], [place], [address] , [place] tel: [phone] Lawrence Neoplasm of uncertain behavior of face Mar- 4 [facility] Dora. [facility] [place], [address], [place]. tel:[phone] [facility], [address], [place], [place], [address] , [place] tel: [phone] Lawrence Benign essential hypertensionB ackache, unspecifiedOt her and unspecified hyperlipidemi aUnspecified idiopathic peripheral neuropathyCTS (carpal tunnel syndrome)SANTI on CPAP 4 Meg Toney. [address] [place], [place], [address], [place]. tel:[phone] Referring Provider: Feng Whitley, [address] [place], [address] . tel:[phone] [facility], [address], [place], [place], [address] , [place] tel: [phone] Lawrence Snoring 4 [facility]. [facility] [place], [address], [place]. tel:[phone] [facility], [address], [place], [place], [address] , [place] tel: [phone] Lawrence BENIGN HYPERTENSIONH YPERLIPIDEMIA NEC/NOSLong-t erm (current) use of other medicationsFA M HX-DIABETES MELLITUSImpai red fasting glucose 4 Meg Toney. [address] [place], [place], [address], [place]. [phone] Referring Provider: Feng Whitley, [address] [place], [address] . tel:[phone] [facility], [address], [place], [place], [address] , tel: [phone] Lawrence Iron deficiency anemia 4 Meg Toney. [address] [place], [place], [address], [place]. tel:[phone] Referring Provider: Feng Whitley, [address] [place], [address] . tel:[phone] [facility] [address], [place], [place], [address] , tel: [phone] No Information 3 Giovanny Dela Cruz. [address] [place], [address]. tel:[phone] [facility] [address], [place], [place], [address] , tel: [phone] Lawrence No Information 3 Meg Toney. [address] [place], [address], [place]. tel:[phone] [facility] [address], [place], [place], [address] , tel: [phone] Lawrence IRRITABLE BOWEL SYNDROMEBENIG N HYPERTENSIONI NINA PERIPH NEURPTHY NOSESOPHAGEAL REFLUXGENERAL OSTEOARTHROSI SCONVULSIONS NECHeart murmur 3 Torin John. [address] [place], [address], [place]. tel:[phone] Referring Provider: Feng Whitley, [address] [place], [address] . tel:[phone] [facility], [address], [place], [place], [address] , [place] tel: [phone] Lawrence Cough 3 Meg Toney. [address] [place], [place], [address], . tel:[phone] [facility], [address], [place], [place], [address] , tel: [phone] Lawrence BENIGN HYPERTENSIONB ACKACHE NOSCONVULSION S NECRight knee DJDEsophageal refluxOther and unspecified hyperlipidemi a 3 Meg Toney. [address] [place], [place], [address], . tel:[phone] Referring Provider: Feng Whitley, [address] [place], [address] . tel:[phone] [facility], [address], [place], [place], [address] , tel: [phone] Lawrence Other and unspecified hyperlipidemi aBenign essential hypertensionL coleen-term (current) use of other medications 3 Meg Toney. [address] [place], [place], [address], . tel:[phone] Referring Provider: Feng Whitley, [address] [place], [address] . tel:[phone] [facility], [address], [place], [place], [address] , tel: [phone] Aaron No Information 2 Meg Toney. [address] [place], [place], [address], . tel:[phone] Referring Provider: Feng Whitley, [address] [place], [address] . tel:[phone] [facility], [address], [place], [place], [address] , tel: [phone] Aaron IDIO PERIPH NEURPTHY NOSCONVULSION S NECBENIGN HYPERTENSIONG ENITAL HERPES NOSHYPERLIPID EMIA NEC/NOSAllerg ic rhinitis 2 Stacyxiao John. [address] [place], [address], [place]. tel:[phone] Referring Provider: Feng Whitley, [address] [place], [address] . tel:[phone] [facility], [address], [place], [place], [address] , [place] tel: [phone] Aaron Blood in stool 2 Meg Toney. [address] [place] [address], [address], [place]. tel:[phone] Referring Provider: Feng Whitley, [address] [place], [address] . tel:[phone] [email or web address], [address], [place], [place], [address] , tel:[phone] Aaron Long-term (current) use of other medications 1 Meg Toney. [address] [place] [address], [address], [place]. tel:[phone] Referring Provider: Feng Whitley, [address] [place], [address] . tel:[phone] [email or web address], [address], [place], [place], [address] , tel: [phone] Aaron No Information 1 Meg Toney. [address] [place] [address], [address], [place]. tel:[phone] Referring Provider: Feng Whitley, [address] [place], [address] . tel:[phone] [facility], [address], [place], [place], [address] , tel:[phone] Aaron HYPERLIPIDEMI A NEC/NOSLONG-T ERM USE MEDS NEC 1 Meg Toney. [address] [place], [place], [address], [place]. tel:[phone] [facility], [address], [place], [place], [address] , [place] tel: [phone] Aaron No Information November- 1 Meg Self [place], [address], . tel:[phone] [facility], [address], [place], [place], [address] , [place] tel: [phone] Lawrence IDIO PERIPH NEURPTHY NOS 1 Torin John. [address] [place], [address], [place]. tel:[phone] [facility], [address], [place], [place], [address] , tel: [phone] Aaron BENIGN HYPERTENSION 1 Meg Self [place], [address], [place]. tel: [phone] [facility], [address], [place], [place], [address] , [place] tel: [phone] Aaron HERPES ZOSTER NOS 0 Meg [address] [place], [address], [place]. tel: [phone] [facility], [address], [place], [place], [address] , [place] tel: [phone] Aaron SCREEN MALIG NEOP-COLON 0 Meg Self [place], [address], [place]. tel: [phone] [facility], [address], [place], [place], [address] , [place] tel: [phone] Aaron VACCIN FOR INFLUENZA 0 [address] [place], [address], . tel:[phone] [facility], [address], [place], [place], [address] , tel:[phone] Lawrence TEAR FILM INSUFFIC NOS Sep-0 2-201 0 [facility]. [address], [place], [address], [place]. [facility], [address], [place], [place], [address] , tel:[phone] Lawrence FAM HX-DIABETES MELLITUS 2-201 0 Meg Self [place], [place], [address], [place]. tel:[phone] [facility], [address], [place], [place], [address] , [place] tel: [phone] Lawrence GENERAL OSTEOARTHROSI S 0 Meg Serrano [address] [place] [address], [address], . tel:[phone] [facility], [address], [place], [place], [address] , tel: [phone] Lawrence GENITAL HERPES NOS 0 Meg Serrano [address] [place] [address], [place], [place], [address], [place]. tel:[phone] [facility], [address], [place], [place], [address] , tel: [phone] Lawrence CONVULSIONS NEC 6-200 9 Sugeysilvina ToneyViraj Self [place], [address], [place]. tel:[phone] [facility], [address], [place], [place], [address] , [place] tel:[phone] Lawrence No Information Mar-0 2-200 8 Meg Serrano [address] [place] [address], [address], [place]. tel:[phone] [facility], [address], [place], [place], [address] , tel:[phone] Lawrence MIGRNE UNSP WO NTRC MGRNESOPHAGEA L REFLUX 0-200 7 Meg Self [place], [place], [address], [place]. tel:[phone] [email or web address], [address], [place], [place], [address] , tel: [phone] Lawrence HORMONE REPLACE POSTMENO 7 Meg Self [place], [place], [address], . tel:[phone] [email or web address], [address], [place], [place], [address] , tel: [phone] Lawrence SCREEN LIPOID DISORDERS 5 Meg Toney. [address] [place], [address], . tel: [phone] [email or web address], [address], [place], [place], [address] , tel: [phone] Lawrence ROUTINE MEDICAL EXAM 3 Meg Self [place], [place], [address], . tel:[phone] [email or web address], [address], [place], [place], [address] , tel: [phone] Lawrence SCREEN MAL NEOP OTH SITE 2 Meg Self [place], [place], [address], . tel:[phone] Family History Family Member Type Diagnosis Age At Onset Brother Problem (finding) suicide (Cause Of ) Brother Problem (finding) Family h/o Problem (finding) DIABETES MELLITUS Father Problem (finding) Obesity Problem (finding) Family [...] (finding) Family history of Menta l illness Immunizations Vaccine Date Status Comments COVID-19, mRNA, [...] doses, administered 21 days apart [facility] ; Source: Other Provider Fluzone High-Dose, high dose , preservative free administered Note: done at the [place] (date is approximate) ; Source: Source Unspecified Pfizer-BioNTech COVID19 Vaccine, 0.3mL per dose, 2 doses, administered 21 days apart administered Note: [facility] ; Source: Source Unspecified Pfizer-BioNTech COVID19 Vaccine, 0.3mL per dose, 2 doses, administered 21 days apart administered Note: [facility] ; Source: Source Unspecified pneumococcal polysaccharide vaccine, 23 valent administered Note: hospital ; [facility] rce: Source Unspecified Flublok, quadrivalent, preservative free, [...] New Immuniz ation Record Fluzone administered Note: [facility] [id number] ; Source: New Immunization Record Fluzone administered Note: [facility]# [id number] ; Source: New Immunization Record Flu (split) (3 yrs or older) administered Source: New Immunization Record 10360 - Influenza administered Source: So urce Unspecified 86346 - Influenza administered Source: [place] ur[place] Unspecified 44922 - Pneumococcal_PPV23 administered S ource: Source Unspecified 25158 - Influenza administered Source: [place] ur[place] Unspecified 58695 - Influenza administered Source: [place] urce Unspecified 27297 - Influenza administered Source: [place] urce Unspecified 89592 - Influenza administered Source: So urce Unspecified 31405 - Influenza administered Source: So urce Unspecified 45501 - Influenza administered Source: So urce Unspecified Payers Payer name Insurance type Covered republican ID Authoriza tion(s) AETNA PPO CI [id number] AETNA PPO CI [id number] AETNA PPO CI [id number] AETNA [facility] MB [id number] [facility] [id number] A[employer]NA [facility] MB [id number] A[employer]NA [facility] MB [id number] AETNA [facility] MB [id number] AETNA [facility] GOLD [facility] MB [id number] Social History Type Description Quantity Date Captured [...] and counseling completed Referral Referred To: [address] [facility] [place], [place], [id number] Ordered: SCREENING MAMMOGRAM (CAD) ordered Referral Ordered: JUAN C POLANCO -[facility] Phys[facility] : Orthopaedic Surgery (related to Follow-up exam) ordered Referral Referred To: JUAN C POLANCO [address] [place], [phone] Ordered: Referrals: Orthopedic Surgery. JUAN C POLANCO. Evaluation/diagnostic/treatment - Level 3 Appointment date/timeframe: 09/24/2022 ordered Referral Ordered: COLONOSCOPY, Flexible, Proximal To Splenic, Diagnostic, Wor W/O Collection Of Sp ordered Referral Ordered: HANG (ankle brachial index) ordered Referral Referred To: Dean Stephenson MD [address] [facility] [address] [place], [phone] Ordered: Referrals: Pulmonology. Dean Stephenson MD. Evaluation/diagnostic/treatment [...] th etimecopd-- breathing [facility]-- controlled at homecerebral aterophy-- memory [place]--- doing [...] weightpt cannot walk at all bc of [id number] strength in right legstrengthin right arm 2/5strength [...] screeningimmunizations--utdmood-- up and downmemory-- fine hospital and alf f/u re spiratpry failure-- still on oxygenleft [...] while I was in my office in [place], [place], and pt. was in their home in [place], [place]. OV for form Patient presents for [...] for hospital follow-up. She was admitted to [facility] on 06/10/2019. Patient presented to ER with [...] x-ray. Patient was given home doses of [place] and was given Flexeril, lidocaine patches and [...] capsaicin, Baclofen PO and home dose of [place]. Patient was discharged with no new medications. She had no other imaging performedPatient was noted to have hyperkalemia one month ago. We will check labs todayShe has a TENS units (latex free) but she still has a rash from the patches.Patient feels that her hydrocodone needs to be increased. She is not getting any pain relief from the [place] 7.5mg every 8 hoursPatient also reports that [...] any better sore under Left arm getting sonya self has two small red bumps under [...] Chron ic GERD continue inhalers Related to [employer] D with asthma continue medslow salt diet [...] Related to N europathy This is mild. We fabiana adams continue to monitor Related to Cerebral [...]
--- OUTSIDE RECORDS SUMMARY | 2024-09-15 10:51 | XMS_ITS | Referral Summary ---
Author Organization [facility] Healthcare Address [address] [place] [address] Care Team Providers Care Instruction Assistant Principal Name Role Phone Jose Manuel Gruber MD Unavailable [phone] Hernando Velasquez MD Primary Care Provider [phone] Encounters Date Type Department Care Team Description 08/16/[address] [facility] Medical Group Cardiology [address] [place] [address] Vianca David NP from Last 3 Months Allergies Active Allergy Reactions Criticality Noted Date Comments Barbiturates Unknown,Other (See comments) Medium 09/13/2006 Diazepam Unknown,Other (See comments) Low 09/13/2006 Fish Containing Products Anaphylaxis High 07/05/2019 Iodine Unknown,Other (See comments) Low 09/13/2006 Latex Unknown 06/28/2019 Menthol Hives,Itching,Rash Medium 07/08/2022 [place]-3 Fatty Acids Unknown,Other (See comments) Low 12/12/2010 [...] 04/15/2022 Assessment & Plan (07/08/2022 2:39 PM FORMAT PROOFREADER): I did recommend that the patient decrease [...] 01/07/2022 Assessment & Plan (07/08/2022 2:39 PM FORMAT PROOFREADER): The patient does have some cough with [...] 01/07/2022 Assessment & Plan (07/08/2022 2:39 PM FORMAT PROOFREADER): She was intolerant of CPAP therapy and [...] 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 - She reports her only symptom [...] SNF. Assessment & Plan (07/07/2020 6:25 PM FORMAT PROOFREADER): - Pt states she was actually tested [...] protocol Assessment & Plan (07/06/2020 11:59 AM FORMAT PROOFREADER): - recommend getting records from SNF to establish exact date of first (+) COVID test. - pt likely has completed days of isolation. Assessment & Plan (07/06/2020 7:34 AM FORMAT PROOFREADER): - Per report, pt was tested for [...] protocol Assessment & Plan (07/05/2020 5:40 PM FORMAT PROOFREADER): - Per report, pt was tested for [...] 07/05/2020 Assessment & Plan (07/11/2020 6:57 AM FORMAT PROOFREADER): History of open periprosthetic tibia/fibula fracture s/p [...] left lower extremity. - PM&R consulted. - Melt Room Operator placed stump auto bumper straightener / ampushield. Awaiting delivery of limb protector. - Patient not interested in prosthesis at this time. - PT/OT consults. - Plan for patient to return to her prior SNF when medically stable with ongoing PT/OT. - ID and Ortho following. Assessment & Plan (07/07/2020 6:27 PM FORMAT PROOFREADER): - History of open periprosthetic tibia/fibula fracture [...] extremity Assessment & Plan (07/06/2020 3:07 PM FORMAT PROOFREADER): - Cellulitis vs subcutaneous infection vs OM [...] recs. Assessment & Plan (07/05/2020 6:03 PM FORMAT PROOFREADER): - Cellulitis vs subcutaneous infection vs OM [...] (07/08/2020): Added automatically from request for surgery [id number] Abnormal x-ray of extremity 07/20/2019 Acute exacerbation of chronic low back pain 06/26 Biliary colic 07/20/2019 Chronic lumbosacral pain 07/20/2019 Chronic respiratory failure 07/20/2019 Assessment & Plan (07/08/2020 4:27 PM FORMAT PROOFREADER): - Per pt 2/2 COPD. No sings of acute exacerbation. - Continue home flonase - Continue home albuterol prn - On home is on 4L O2 at baseline Assessment & Plan (07/07/2020 6:26 PM FORMAT PROOFREADER): - Per pt 2/2 COPD. No sings of acute exacerbation. - Continue home flonase - Continue home albuterol prn - On baseline 4L O2 Assessment & Plan (07/06/2020 7:33 AM FORMAT PROOFREADER): - Per pt 2/2 COPD. No sings of acute exacerbation. - Continue home flonase - Continue home albuterol prn - On baseline 4L O2 Assessment & Plan (07/05/2020 6:00 PM FORMAT PROOFREADER): - Per pt 2/2 COPD. No sings of acute exacerbation. - Continue home flonase - Continue home albuterol prn - On baseline 4L O2 Closed displaced bimalleolar fracture of right l ower leg 07/20/2019 Assessment & Plan (07/05/2020 6:01 PM FORMAT PROOFREADER): - As elsewhere Deep venous insufficiency 07/20/2019 [...] with anxious distress 019 Intractable seizure disorder ([facility]) 9 Moderate essential hypertension 06/28/2019 Assessment & Plan (07/08/2020 4:26 PM FORMAT PROOFREADER): - Follows with cardiology. - Continue home amlodipine, metoprolol, lasix, spironolactone. - Switched olmesartan to losartan as not on formulary. Assessment & Plan (07/07/2020 6:26 PM FORMAT PROOFREADER): - Follows with cardiology - Continue home amlodipine, metoprolol, lasix, spironolactone - Switched olmesartan to losartan as not on formulary Assessment & Plan (07/06/2020 3:04 PM FORMAT PROOFREADER): - Follows with cardiology - Continue home amlodipine, metoprolol, lasix, spironolactone - Switched olmesartan to losartan as not on formulary Assessment & Plan (07/05/2020 5:58 PM FORMAT PROOFREADER): - Follows with cardiology - Continue home amlodipine, metoprolol, lasix, spironolactone - Switch olmesartan to losartan as not on formulary Syncope due to sick sinus syndrome (CMS/HCC) 10/2018 Open displaced comminuted fr acture of shaft of left tibia, type IIIA, IIIB, or IIIC 06/28/2019 Overview (06/28/2019): Added automatically from request for surgery [id number] Assessment & Plan (07/08/2020 4:27 PM FORMAT PROOFREADER): - See above. 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 After hours, the ID fellow application support developer can be reached at [phone]. Assessment & Plan (07/05/2020 5:59 PM FORMAT PROOFREADER): - L tibia and R ankle fractures s/p BRENNA in 06/2020 - Complicated by poor healing and multiple infections of L anterior leg wound - Pt of Dr. Shoemaker Hyponatremia 11/23/2017 Assessment & Plan (07/11/2020 6:59 AM FORMAT PROOFREADER): - Pt with history of hypoNa (per report, baseline mid 120- low 130s). - Na 126 on admission. No AMS. - TSH wnl. Cortisol 17. - Na stable. Assessment & Plan (07/07/2020 6:26 PM FORMAT PROOFREADER): - Pt with history of hypoNa (per report, baseline mid 120- low 130s). - Na 126 on admission. No AMS. - TSH wnl. Cortisol 17. - Diuretics were held and Na improved to 132. Restart when able. Assessment & Plan (07/06/2020 7:31 AM FORMAT PROOFREADER): - Pt with history of hypoNa (per [...] 07/20/2019 07/05/20 20 Hyperkalemia 07/20/2019 07/05/2020 Immunizations Immunization Administration Dates Next Due Influenza, Quadrivalent, Rec [...] Comments Blood Pressure 153/76 07/08/2022 2:24 PM FORMAT PROOFREADER Pulse 71 07/08/2022 2:24 PM FORMAT PROOFREADER Temperature 36.5 C (97.7 F) 01/16/2022 5:20 PM CDT Respiratory Rate 18 07/08/2022 2:24 PM FORMAT PROOFREADER Oxygen Saturation 96% 07/08/2022 2:24 PM FORMAT PROOFREADER Inhaled Oxygen Concentration - - Weight 89.4 kg (197 lb) 01/16/2022 5:20 PM CDT Height 157.5 cm (5' 2 ) 04/15/2022 2:28 PM CDT Body Mass Index 36.03 01/07/2022 12:59 PM CDT Plan of Treatment Not on file Medical Devices Implanted Type Area Bass Fisher Device Identifier Shelf Expiration Date Model / Serial / Lot Synthes 223.581 Lcp Combi [id number] 8 Hole Limit Contact Taper End Plate Bone - S0 - [id number] Implanted:Qty: 1 on 06/28/2019 by Lo Laura DO at [facility] Plate Left: Tibia Synthes I 223.581 / 0 / 0 Synthes 212.106 3.5mm 2.9mm 20mm Self Tap Lock Stardrive Conical Head T15 Full - S0 - [id number] Implanted:Qty: 1 on 06/28/2019 by Lo Laura DO at [facility] Screw Left: Tibia Synthes I 212.106 / 0 / 0 Synthes 212.108 3.5mm 2.9mm 24mm Self Tap Lock Stardrive Conical Head Pelvis T15 - S0 - [id number] Implanted:Qty: 1 on 06/28/2019 by Lo Laura DO at [facility] Screw Left: Tibia Synthes I 212.108 / 0 / 0 Synthes 212.109 3.5mm 2.9mm 26mm Self Tap Lock Stardrive Conical Head T15 Full - S0 - [id number] Implanted:Qty: 1 on 06/28/2019 by Lo Laura DO at [facility] Screw Left: Tibia Synthes I 212.109 / 0 / 0 Synthes 212.104 3.5mm 2.9mm 16mm Self Tap Lock Stardrive Conical Head T15 Full - S0 - [id number] Implanted:Qty: 2 on 06/28/2019 by Lo Laura DO at [facility] Screw Left: Tibia Synthes I 212.104 / 0 / 0 Synthes 212.107 3.5mm 2.9mm 22mm Self Tap Lock Stardrive Conical Head T15 Full - S0 - [id number] Implanted:Qty: 1 on 06/28/2019 by Lo Laura DO at [facility] Screw Left: Tibia Synthes I 212.107 / 0 / 0 Synthes 212.103 3.5mm 2.9mm 14mm Self Tap Lock Stardrive Conical Head T15 Full - [id number] Implanted:Qty: 2 on 06/30/2019 by Jacobo Shoemaker MD at [facility] Left: Tibia Synthes I 212.103 / / Synthes 212.109 3.5mm 2.9mm 26mm Self Tap Lock Stardrive Conical Head T15 Full - [id number] Implanted:Qty: 2 on 06/30/2019 by Jacobo Shoemaker MD at [facility] Left: Tibia Synthes I 212.109 / / Synthes 212.101 3.5mm 2.9mm 10mm Self Tap Lock Stardrive Conical Head T15 Full - [id number] Implanted:Qty: 1 on 06/30/2019 by Jacobo Shoemaker MD at [facility] Left: Tibia Synthes I 212.101 / / Synthes 212.107 3.5mm 2.9mm 22mm Self Tap Lock Stardrive Conical Head T15 Full - [id number] Implanted:Qty: 1 on 06/30/2019 by Jacobo Shoemaker MD at [facility] Left: Tibia Synthes I 212.107 / / Synthes 204.840 3.5mm 6mm 40mm 2.5mm Self Tap Small Hexagonal Socket Low Profile - [id number] Implanted:Qty: 1 on 06/30/2019 by Jacobo Shoemaker MD at [facility] Left: Tibia Synthes I 204.840 / / Synthes 204.832 3.5mm 6mm 32mm 2.5mm Self Tap Small Hexagonal Socket Low Profile - [id number] Implanted:Qty: 1 on 06/30/2019 by Jacobo Shoemaker MD at [facility] Left: Tibia Synthes I 204.832 / / Synthes 241.351 Lcp 12mm [id number] .7mm 5 Hole Collar 1/3 Tubular Plate Bone - [id number] Implanted:Qty: 1 on 06/30/2019 by Jacobo Shoemaker MD at [facility] Left: Tibia Synthes I 241.351 / / Synthes 241.351 Lcp 12mm [id number] .7mm 5 Hole Collar 1/3 Tubular Plate Bone - [id number] Implanted:Qty: 1 on 06/30/2019 by Jacobo Shoemaker MD at [facility] Right: Ankle Synthes I 241.351 / / Synthes 204.826 3.5mm 6mm 26mm 2.5mm Self Tap Small Hexagonal Socket Low Profile - [id number] Implanted:Qty: 1 on 06/30/2019 by Jacobo Shoemaker MD at [facility] Right: Ankle Synthes I 204.826 / / Synthes 212.102 3.5mm 2.9mm 12mm Self Tap Lock Stardrive Conical Head T15 Full - [id number] Implanted:Qty: 1 on 06/30/2019 by Jacobo Shoemaker MD at [facility] Right: Ankle Synthes I 212.102 / / Synthes 212.114 3.5mm 2.9mm 35mm Self Tap Lock Stardrive Conical Head T15 Full - [id number] Implanted:Qty: 1 on 06/30/2019 by Jacobo Shoemaker MD at [facility] Right: Ankle Synthes I 212.114 / / Synthes 223.641 Lcp Combi [id number] 14 Hole Limit Contact Taper End Plate Bone - [id number] Implanted:Qty: 1 on 06/30/2019 by Jacobo Shoemaker MD at [facility] Left: Tibia Synthes I 223.641 / / Synthes 204.824 3.5mm 6mm 24mm 2.5mm Self Tap Small Hexagonal Socket Low Profile - [id number] Implanted:Qty: 2 on 06/30/2019 by Jacobo Shoemaker MD at [facility] Left: Tibia Synthes I 204.824 / / Synthes 212.104 3.5mm 2.9mm 16mm Self Tap Lock Stardrive Conical Head T15 Full - [id number] Implanted:Qty: 2 on 06/30/2019 by Jacobo Shoemaker MD at [facility] Left: Tibia Synthes I 212.104 / / Explanted Type Area Bass Fisher Device Identifier Shelf Expiration Date Model / Serial / Lot Synthes 204.836 3.5mm 6mm 36mm 2.5mm Self Tap Small Hexagonal Socket Low Profile - [id number] Explanted:Qty: 1 on 06/30/2019 at [facility] Right: Ankle Synthes I 204.836 / / Synthes 212.117 3.5mm 2.9mm 40mm Self Tap Lock Stardrive Conical Head T15 Full - [id number] Explanted:Qty: 1 on 06/30/2019 at [facility] Right: Ankle Synthes I 212.117 / / Procedures Procedure Name Priority Date/Time Associated Diagnosis Comments CARDIOLOGY DOCUMENT SCAN Routine 08/08/2024 7:14 AM FORMAT PROOFREADER SCREENING MAMMOGRAM BILATERAL W WILLIE Schedule Routine, Read Routine (OP Routine) 02/18/2023 1:39 PM CDT Screening mammogram, encounter for HEPATITIS PANEL, ACUTE Routine 06/10/2019 10:11 AM FORMAT PROOFREADER from Last 3 Months or Most Recently Relevant to Health Maintenance Results * Cardiology Document Scan (08/08/2024 7:14 AM FORMAT PROOFREADER) Anatomical Region Laterality Modality Other Vianca David [...] age 42, based on guidelines of the [employer] (ACR Practice Parameter for the Performance of Screening and Diagnostic Mammography) and [place] [employer]. For women [...] * Hepatitis panel, acute (06/10/2019 10:11 AM FORMAT PROOFREADER) HepBsAg NONREACT NONREACTIVE [facility] Comment: Siemens JauntaurXP using SUSU (chemiluminescent immunoassay) technology. NONREACTIVE: IgM antibodies to Hepatitis B Surface antigen not detected. REACTIVE: IgM antibodies to Hepatitis B Surface antigen detected. Reactive results will be confirmed by neutralization testing. HBsAb qn <3.10 mIU/mL [facility] Comment: Siemens CentaurXP using SUSU (chemiluminescent immunoassay) technology. 9.99 IU/L or less.....NONREACTIVE: IgM antibodies to Hepatitis B Surface antibody are not detected. 10.00 IU/L or greater..REACTIVE: IgM antibodies to Hepatitis B Surface antibody are detected. Hep B core IgM NONREACT NONREACTIVE [facility] [place] Comment: Siemens CentaurXP using SUSU (chemiluminescent immunoassay) technology. NONREACTIVE: IgM antibodies to Hepatitis B Core antigen not detected. EQUIVOCAL: IgM antibodies to Hepatitis B Core antigen may or may not be present. Obtain a new specimen and retest. REACTIVE: IgM antibodies to Hepatitis B Core antigen detected. Hep A IgM NONREACT NONREACTIVE [facility] Comment: Siemens CentaurXP using SUSU (chemiluminescent immunoassay) technology. NONREACTIVE: IgM antibodies to Hepatitis A not detected. This does not exclude possibility of exposure to Hepatitis A or early acute infection. EQUIVOCAL:IgM antibodies to Hepatitis A may or may not be present. Suggest recollection and retest. REACTIVE: Antibodies to Hepatitis A detected. Hep C Ab NONREACT NONREACTIVE [facility] Comment: Siemens CentaurXP using SUSU (chemiluminescent [...] real-time PCR method. 06/10/2019 10:1 1 AM FORMAT PROOFREADER 06/10/2019 10:47 AM FORMAT PROOFREADER Narrative Resulting Agency Comment IN Destiny Pereira MD LAB MICROBIOLOGY - GENERAL ORDERABLES Final Result [facility] [address] [phone] from Last 3 Months or Most Recently Relevant to Health Maintenance Insurance [facility] [place] [address] [address] [place] [address] [facility] [employer] [facility] IDPA MEDICARE Advance Directives For more information, please contact: [phone] Documents on File Type Date Recorded Patient Manager Diversity Expl anation ADVANCE DIRECTIVE 07/14/2020 6:58 AM * Full Code (Latest Code Status on File) Date Activated Date Inactivated Comments 07/05/2020 4:11 PM 07/12/2020 7:15 PM * Full Code Date Activated Date Inactivated Comments 06/28/2019 11:55 PM 07/06/2019 8:59 PM Care Teams Instruction Assistant Principal Relationship Specialty Start Date End Date Hernando Velasquez MD PCP - General Internal Medicine 01/07/22 Jose Manuel Gruber MD Fellow Orthopedic Surgery 07/06/19
--- OUTSIDE RECORDS SUMMARY | 2024-09-15 10:51 | XMS_ITS | Clinical Summary ---
Author Organization [facility] Healthcare Address [address] [place] [address] Care Team Providers Care Media Strategist Name Role Phone Jose Manuel Gruber MD Unavailable Hernando Velasquez MD Primary Care Provider [phone] Allergies Active Allergy Reactions Criticality Noted Date Comments Barbiturates Unknown,Other (See comments) Medium 09/13/2006 Diazepam Unknown,Other (See comments) Low 09/13/2006 Fish Containing Products Anaphylaxis High 07/05/2019 Iodine Unknown,Other (See comments) Low 09/13/2006 Latex Unknown 06/28/2019 Menthol Hives,Itching,Rash Medium 07/08/2022 [place]-3 Fatty Acids Unknown,Other (See comments) Low 12/12/2010 [...] 04/15/2022 Assessment & Plan (07/08/2022 2:39 PM HOSPICE BEREAVEMENT COORDINATOR): I did recommend that the patient decrease [...] 01/07/2022 Assessment & Plan (07/08/2022 2:39 PM HOSPICE BEREAVEMENT COORDINATOR): The patient does have some cough with [...] 01/07/2022 Assessment & Plan (07/08/2022 2:39 PM HOSPICE BEREAVEMENT COORDINATOR): She was intolerant of CPAP therapy and [...] 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 - She reports her only symptom [...] SNF. Assessment & Plan (07/07/2020 6:25 PM HOSPICE BEREAVEMENT COORDINATOR): - Pt states she was actually tested [...] protocol Assessment & Plan (07/06/2020 11:59 AM HOSPICE BEREAVEMENT COORDINATOR): - recommend getting records from SNF to establish exact date of first (+) COVID test. - pt likely has completed days of isolation. Assessment & Plan (07/06/2020 7:34 AM HOSPICE BEREAVEMENT COORDINATOR): - Per report, pt was tested for [...] protocol Assessment & Plan (07/05/2020 5:40 PM HOSPICE BEREAVEMENT COORDINATOR): - Per report, pt was tested for [...] 07/05/2020 Assessment & Plan (07/11/2020 6:57 AM HOSPICE BEREAVEMENT COORDINATOR): History of open periprosthetic tibia/fibula fracture s/p [...] left lower extremity. - PM&R consulted. - Band Sawyer placed stump audiovisual production specialist / ampushield. Awaiting delivery of limb protector. - Patient not interested in prosthesis at this time. - PT/OT consults. - Plan for patient to return to her prior SNF when medically stable with ongoing PT/OT. - ID and Ortho following. Assessment & Plan (07/07/2020 6:27 PM HOSPICE BEREAVEMENT COORDINATOR): - History of open periprosthetic tibia/fibula fracture [...] extremity Assessment & Plan (07/06/2020 3:07 PM HOSPICE BEREAVEMENT COORDINATOR): - Cellulitis vs subcutaneous infection vs OM [...] recs. Assessment & Plan (07/05/2020 6:03 PM HOSPICE BEREAVEMENT COORDINATOR): - Cellulitis vs subcutaneous infection vs OM [...] (07/08/2020): Added automatically from request for surgery [id number] Abnormal x-ray of extremity 07/20/2019 Acute exacerbation of chronic low back pain 06/26 Biliary colic 07/20/2019 Chronic lumbosacral pain 07/20/2019 Chronic respiratory failure 07/20/2019 Assessment & Plan (07/08/2020 4:27 PM HOSPICE BEREAVEMENT COORDINATOR): - Per pt 2/2 COPD. No sings of acute exacerbation. - Continue home flonase - Continue home albuterol prn - On home is on 4L O2 at baseline Assessment & Plan (07/07/2020 6:26 PM HOSPICE BEREAVEMENT COORDINATOR): - Per pt 2/2 COPD. No sings of acute exacerbation. - Continue home flonase - Continue home albuterol prn - On baseline 4L O2 Assessment & Plan (07/06/2020 7:33 AM HOSPICE BEREAVEMENT COORDINATOR): - Per pt 2/2 COPD. No sings of acute exacerbation. - Continue home flonase - Continue home albuterol prn - On baseline 4L O2 Assessment & Plan (07/05/2020 6:00 PM HOSPICE BEREAVEMENT COORDINATOR): - Per pt 2/2 COPD. No sings of acute exacerbation. - Continue home flonase - Continue home albuterol prn - On baseline 4L O2 Closed displaced bimalleolar fracture of right l ower leg 07/20/2019 Assessment & Plan (07/05/2020 6:01 PM HOSPICE BEREAVEMENT COORDINATOR): - As elsewhere Deep venous insufficiency 07/20/2019 [...] 06/28/2019 Assessment & Plan (07/08/2020 4:26 PM HOSPICE BEREAVEMENT COORDINATOR): - Follows with cardiology. - Continue home amlodipine, metoprolol, lasix, spironolactone. - Switched olmesartan to losartan as not on formulary. Assessment & Plan (07/07/2020 6:26 PM HOSPICE BEREAVEMENT COORDINATOR): - Follows with cardiology - Continue home amlodipine, metoprolol, lasix, spironolactone - Switched olmesartan to losartan as not on formulary Assessment & Plan (07/06/2020 3:04 PM HOSPICE BEREAVEMENT COORDINATOR): - Follows with cardiology - Continue home amlodipine, metoprolol, lasix, spironolactone - Switched olmesartan to losartan as not on formulary Assessment & Plan (07/05/2020 5:58 PM HOSPICE BEREAVEMENT COORDINATOR): - Follows with cardiology - Continue home amlodipine, metoprolol, lasix, spironolactone - Switch olmesartan to losartan as not on formulary Syncope due to sick sinus syndrome (CMS/HCC) 10/2018 Open displaced comminuted fr acture of shaft of left tibia, type IIIA, IIIB, or IIIC 06/28/2019 Overview (06/28/2019): Added automatically from request for surgery [id number] Assessment & Plan (07/08/2020 4:27 PM HOSPICE BEREAVEMENT COORDINATOR): - See above. Assessment & Plan (07/12/2020 8:13 AM HOSPICE BEREAVEMENT COORDINATOR): 69 y.o. 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 After hours, the ID fellow overnight houseperson can be reached at [phone]. Assessment & Plan (07/05/2020 5:59 PM HOSPICE BEREAVEMENT COORDINATOR): - L tibia and R ankle fractures s/p BRENNA in 06/2020 - Complicated by poor healing and multiple infections of L anterior leg wound - Pt of Dr. Shoemaker Hyponatremia 11/23/2017 Assessment & Plan (07/11/2020 6:59 AM HOSPICE BEREAVEMENT COORDINATOR): - Pt with history of hypoNa (per report, baseline mid 120- low 130s). - Na 126 on admission. No AMS. - TSH wnl. Cortisol 17. - Na stable. Assessment & Plan (07/07/2020 6:26 PM HOSPICE BEREAVEMENT COORDINATOR): - Pt with history of hypoNa (per report, baseline mid 120- low 130s). - Na 126 on admission. No AMS. - TSH wnl. Cortisol 17. - Diuretics were held and Na improved to 132. Restart when able. Assessment & Plan (07/06/2020 7:31 AM HOSPICE BEREAVEMENT COORDINATOR): - Pt with history of hypoNa (per [...] Department Care Team Description 08/16/2024 Orders Only [facility] Cardiology [address] [place] [address] Vianca David NP from Last 3 Months Immunizations Immunization Administration Dates Next Due Influenza, [...] Comments Blood Pressure 153/76 07/08/2022 2:24 PM HOSPICE BEREAVEMENT COORDINATOR Pulse 71 07/08/2022 2:24 PM HOSPICE BEREAVEMENT COORDINATOR Temperature 36.5 C (97.7 F) 01/16/2022 5:20 PM CDT Respiratory Rate 18 07/08/2022 2:24 PM HOSPICE BEREAVEMENT COORDINATOR Oxygen Saturation 96% 07/08/2022 2:24 PM HOSPICE BEREAVEMENT COORDINATOR Inhaled Oxygen Concentration - - Weight 89.4 [...] Completed 06/10/2019 Medical Devices Implanted Type Area Audiovisual Production Specialist Device Identifier Shelf Expiration Date Model / Serial / Lot Synthes 223.581 Lcp Combi [id number] 8 Hole Limit Contact Taper End Plate Bone - S0 - [id number] Implanted:Qty: 1 on 06/28/2019 by Lo Laura DO at [facility] Plate Left: Tibia Synthes I 223.581 / 0 / 0 Synthes 212.106 3.5mm 2.9mm 20mm Self Tap Lock Stardrive Conical Head T15 Full - S0 - [id number] Implanted:Qty: 1 on 06/28/2019 by Lo Laura DO at [facility] Screw Left: Tibia Synthes I 212.106 / 0 / 0 Synthes 212.108 3.5mm 2.9mm 24mm Self Tap Lock Stardrive Conical Head Pelvis T15 - S0 - [id number] Implanted:Qty: 1 on 06/28/2019 by Lo Laura DO at [facility] Screw Left: Tibia Synthes I 212.108 / 0 / 0 Synthes 212.109 3.5mm 2.9mm 26mm Self Tap Lock Stardrive Conical Head T15 Full - S0 - [id number] Implanted:Qty: 1 on 06/28/2019 by Lo Laura DO at [facility] Screw Left: Tibia Synthes I 212.109 / 0 / 0 Synthes 212.104 3.5mm 2.9mm 16mm Self Tap Lock Stardrive Conical Head T15 Full - S0 - [id number] Implanted:Qty: 2 on 06/28/2019 by Lo Laura DO at [facility] Screw Left: Tibia Synthes I 212.104 / 0 / 0 Synthes 212.107 3.5mm 2.9mm 22mm Self Tap Lock Stardrive Conical Head T15 Full - S0 - [id number] Implanted:Qty: 1 on 06/28/2019 by Lo Laura DO at [facility] Screw Left: Tibia Synthes I 212.107 / 0 / 0 Synthes 212.103 3.5mm 2.9mm 14mm Self Tap Lock Stardrive Conical Head T15 Full - [id number] Implanted:Qty: 2 on 06/30/2019 by Jacobo Shoemaker MD at [facility] Left: Tibia Synthes I 212.103 / / Synthes 212.109 3.5mm 2.9mm 26mm Self Tap Lock Stardrive Conical Head T15 Full - [id number] Implanted:Qty: 2 on 06/30/2019 by Jacobo Shoemaker MD at [facility] Left: Tibia Synthes I 212.109 / / Synthes 212.101 3.5mm 2.9mm 10mm Self Tap Lock Stardrive Conical Head T15 Full - [id number] Implanted:Qty: 1 on 06/30/2019 by Jacobo Shoemaker MD at [facility] Left: Tibia Synthes I 212.101 / / Synthes 212.107 3.5mm 2.9mm 22mm Self Tap Lock Stardrive Conical Head T15 Full - [id number] Implanted:Qty: 1 on 06/30/2019 by Jacobo Shoemaker MD at [facility] Left: Tibia Synthes I 212.107 / / Synthes 204.840 3.5mm 6mm 40mm 2.5mm Self Tap Small Hexagonal Socket Low Profile - [id number] Implanted:Qty: 1 on 06/30/2019 by Jacobo Shoemaker MD at [facility] Left: Tibia Synthes I 204.840 / / Synthes 204.832 3.5mm 6mm 32mm 2.5mm Self Tap Small Hexagonal Socket Low Profile - [id number] Implanted:Qty: 1 on 06/30/2019 by Jacobo Shoemaker MD at [facility] Left: Tibia Synthes I 204.832 / / Synthes 241.351 Lcp 12mm [id number] .7mm 5 Hole Collar 1/3 Tubular Plate Bone - [id number] Implanted:Qty: 1 on 06/30/2019 by Jacobo Shoemaker MD at [facility] Left: Tibia Synthes I 241.351 / / Synthes 241.351 Lcp 12mm [id number] .7mm 5 Hole Collar 1/3 Tubular Plate Bone - [id number] Implanted:Qty: 1 on 06/30/2019 by Jacobo Shoemaker MD at [facility] Right: Ankle Synthes I 241.351 / / Synthes 204.826 3.5mm 6mm 26mm 2.5mm Self Tap Small Hexagonal Socket Low Profile - [id number] Implanted:Qty: 1 on 06/30/2019 by Jacobo Shoemaker MD at [facility] Right: Ankle Synthes I 204.826 / / Synthes 212.102 3.5mm 2.9mm 12mm Self Tap Lock Stardrive Conical Head T15 Full - [id number] Implanted:Qty: 1 on 06/30/2019 by Jacobo Shoemaker MD at [facility] Right: Ankle Synthes I 212.102 / / Synthes 212.114 3.5mm 2.9mm 35mm Self Tap Lock Stardrive Conical Head T15 Full - [id number] Implanted:Qty: 1 on 06/30/2019 by Jacobo Shoemaker MD at [facility] Right: Ankle Synthes I 212.114 / / Synthes 223.641 Lcp Combi [id number] 14 Hole Limit Contact Taper End Plate Bone - [id number] Implanted:Qty: 1 on 06/30/2019 by Jacobo Shoemaker MD at [facility] Left: Tibia Synthes I 223.641 / / Synthes 204.824 3.5mm 6mm 24mm 2.5mm Self Tap Small Hexagonal Socket Low Profile - [id number] Implanted:Qty: 2 on 06/30/2019 by Jacobo Shoemaker MD at [facility] Left: Tibia Synthes I 204.824 / / Synthes 212.104 3.5mm 2.9mm 16mm Self Tap Lock Stardrive Conical Head T15 Full - [id number] Implanted:Qty: 2 on 06/30/2019 by Jacobo Shoemaker MD at [facility] Left: Tibia Synthes I 212.104 / / Explanted Type Area Audiovisual Production Specialist Device Identifier Shelf Expiration Date Model / Serial / Lot Synthes 204.836 3.5mm 6mm 36mm 2.5mm Self Tap Small Hexagonal Socket Low Profile - [id number] Explanted:Qty: 1 on 06/30/2019 at [facility] Right: Ankle Synthes I 204.836 / / Synthes 212.117 3.5mm 2.9mm 40mm Self Tap Lock Stardrive Conical Head T15 Full - [id number] Explanted:Qty: 1 on 06/30/2019 at [facility] Right: Ankle Synthes I 212.117 / / Procedures Procedure Name Priority Date/Time Associated Diagnosis Comments CARDIOLOGY DOCUMENT SCAN Routine 08/08/2024 7:14 AM HOSPICE BEREAVEMENT COORDINATOR SCREENING MAMMOGRAM BILATERAL W WILLIE Schedule Routine, Read Routine (OP Routine) 02/18/2023 1:39 PM CDT Screening mammogram, encounter for HEPATITIS PANEL, ACUTE Routine 06/10/2019 10:11 AM HOSPICE BEREAVEMENT COORDINATOR from Last 3 Months or Most Recently Relevant to Health Maintenance Results * Cardiology Document Scan (08/08/2024 7:14 AM HOSPICE BEREAVEMENT COORDINATOR) Anatomical Region Laterality Modality Other Vianca David [...] age 42, based on guidelines of the [employer] (ACR Practice Parameter for the Performance of Screening and Diagnostic Mammography) and [place] [employer]. For women [...] * Hepatitis panel, acute (06/10/2019 10:11 AM HOSPICE BEREAVEMENT COORDINATOR) HepBsAg NONREACT NONREACTIVE [facility] Comment: Siemens CentaurXP using SUSU (chemiluminescent immunoassay) technology. NONREACTIVE: IgM antibodies to Hepatitis B Surface antigen not detected. REACTIVE: IgM antibodies to Hepatitis B Surface antigen detected. Reactive results will be confirmed by neutralization testing. HBsAb qn <3.10 mIU/mL [facility] Comment: Siemens CentaurXP using SUSU (chemiluminescent immunoassay) technology. 9.99 IU/L or less.....NONREACTIVE: IgM antibodies to Hepatitis B Surface antibody are not detected. 10.00 IU/L or greater..REACTIVE: IgM antibodies to Hepatitis B Surface antibody are detected. Hep B core IgM NONREACT NONREACTIVE [facility] Comment: Siemens CentaurXP using SUSU (chemiluminescent immunoassay) technology. NONREACTIVE: IgM antibodies to Hepatitis B Core antigen not detected. EQUIVOCAL: IgM antibodies to Hepatitis B Core antigen may or may not be present. Obtain a new specimen and retest. REACTIVE: IgM antibodies to Hepatitis B Core antigen detected. Hep A IgM NONREACT NONREACTIVE [facility] Comment: Siemens CentaurXP using SUSU (chemiluminescent immunoassay) technology. NONREACTIVE: IgM antibodies to Hepatitis A not detected. This does not exclude possibility of exposure to Hepatitis A or early acute infection. EQUIVOCAL:IgM antibodies to Hepatitis A may or may not be present. Suggest recollection and retest. REACTIVE: Antibodies to Hepatitis A detected. Hep C Ab NONREACT NONREACTIVE [facility] Comment: Siemens CentaurXP using SUSU (chemiluminescent immunoassay) [...] real-time PCR method. 06/10/2019 10:1 1 AM HOSPICE BEREAVEMENT COORDINATOR 06/10/2019 10:47 AM HOSPICE BEREAVEMENT COORDINATOR Narrative Resulting Agency Comment IN Destiny Pereira MD LAB MICROBIOLOGY - GENERAL ORDERABLES Final Result [facility] [address] [place] [address], [facility] [phone] from Last 3 Months or Most Recently Relevant to Health Maintenance Insurance [facility] AETNA [facility]ANTRA [facility] [place] [facility]PA MEDIC[facility] Advance Directives For more information, please contact: [phone] Documents on File Type Date Recorded 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
--- OUTSIDE RECORDS SUMMARY | 2024-09-15 10:51 | XMS_ITS | Clinical Summary ---
Author Organization [facility] Address [facility] [place] [address] Care Team Providers Care Silo Operator Name Role Phone Marcia Gaines MD Primary Care Provider [phone] Allergies Active Allergy Reactions Criticality Noted Date [...] tartrate 25 MG tablet 1 Active NYSTATIN 128680 UNIT/GM powder 1 Active ondansetron 8 MG [...] above-knee amput ation of left lower extremity ([facility]) 08/02/2020 Leg skin lesion, left 07/05/2020 Overview (05/06/2021): Added automatically from request for surgery [id number] Infection 07/05/2020 Overview (05/06/2021): Last Assessment & [...] left lower extremity. - PM&R consulted. - Rail Car Loader placed stump jewel bearing polisher / ampushield. Awaiting delivery of limb protector. - Patient not interested in prosthesis at this time. - PT/OT consults. - Plan for patient to return to her prior SNF when medically stable with ongoing PT/OT. - ID and Ortho following. COVID-19 07/05/2020 Overview (05/06/2021): Last Assessment & Plan: - Patient tested positive for COVID-19 on 06/21/20 at her usp ([facility] in [place], [place]). - She reports her only symptom [...] Plan: - As elsewhere Chronic respiratory failure ([facility]) Overview (05/06/2021): Last Assessment & Plan: - Per pt 2/2 COPD. No sings of acute exacerbation. - Continue home flonase - Continue home albuterol prn - On home is on 4L O2 at baseline Chronic lumbosacral pain 07/20/2019 Biliary colic 07/20/2019 Acute exacerbation of chronic low back pain 06/26 Abnormal x-ray of extremity 07/20/2019 Syncope due to sick sinus syndrome ([facility]) 06/28/2019 Open displaced comminuted fr acture of shaft of left tibia, type IIIA, IIIB, or IIIC 06/28/2019 Overview (05/06/2021): Added automatically from request for surgery [id number] Last Assessment & Plan: - See above. Moderate essential hypertension 06/28/2019 Overview (05/06/2021): Last Assessment & Plan: - Follows with cardiology. - Continue home amlodipine, metoprolol, lasix, spironolactone. - Switched olmesartan to losartan as not on formulary. Intractable seizure disorder ([facility]) 1 08/29/2018 Bipolar I disorder with anxious distress ([facility]) 06/28/2019 Traumatic rhabdomyolysis 11/23/2017 Hyponatremia 11/23/2017 Overview [...] 21 05/09/2021 Insurance MEDICAID AETNA Care Teams Silo Operator Relationship Specialty Start Date End Date Marcia Gaines MD PCP - General 08/18/16
--- OUTSIDE RECORDS SUMMARY | 2024-09-15 10:51 | XMS_ITS | Encounter Summary ---
Author Organization [facility] Care Team Providers Care Photoengraver Name Role Phone Hernando Velasquez MD Primary Care Provider [phone] Jose Manuel Gruber MD Unavailable [phone] Bernardo Edwards MD Primary Care Provider [phone] Hernando Velasquez MD Primary Care Provider [phone] Bernardo Edwards MD Primary Care Provider [phone] Bernardo Edwards MD Primary Care Provider [phone] Hernando Velasquez MD Primary Care Provider [phone] Encounter Details Date Type Department Care Team (Latest Contact Info) Description 07/12/2016 Orders Only [facility] CLINCONV ProviderLucille MD [address] [place] [address] Social History Tobacco Use Types Packs/Day [...] Comments SCAN - LABS 07/23/2016 12:00 AM DEPUTY SHERIFF documented in this encounter Results * SCAN - LABS (07/23/2016 12:00 AM DEPUTY SHERIFF) Narrative 07/23/2016 12:00 AM DEPUTY SHERIFF Ordered by an unspecified provider. us Historical [...] documented as of this encounter Care Teams Photoengraver Relationship Specialty Start Date End Date Hernando Velasquez MD PCP - General 12/23/18 06/13/19 Bernardo Edwards MD [address] [place] [address] PCP - General 07/05/20 07/06/20 Hernando Velasquez MD PCP - General 07/07/20 07/07/20 Bernardo Edwards MD [address] [place] [address] PCP - General 07/08/20 01/06/22 Bernardo Edwards MD [address] [place] [address] PCP - General 06/14/19 07/04/20 Hernando Velasquez MD PCP - General Internal Medicine 01/07/22 Jose Manuel Gruber MD Fellow Orthopedic Surgery 07/06/19 documented as of this encounter
--- OUTSIDE RECORDS SUMMARY | 2024-09-15 10:51 | XMS_ITS | Encounter Summary ---
Author Organization [facility] Care Team Providers Care Social Worker Clinical Name Role Phone Hernando Velasquez MD Primary Care Provider [phone] Jose Manuel Gruber MD Unavailable [phone] Bernardo Edwards MD Primary Care Provider [phone] Hernando Velasquez MD Primary Care Provider [phone] Bernardo Edwards MD Primary Care Provider [phone] Bernardo Edwards MD Primary Care Provider [phone] Hernando Velasquez MD Primary Care Provider [phone] Encounter Details Date Type Department Care Team (Latest Contact Info) Description 07/22/2016 Orders Only [facility] CLINCONV ProviderLucille MD [address] [place] [address] Social History Tobacco Use Types Packs/Day [...] Comments SCAN - LABS 07/23/2016 12:00 AM OUT OF TOWN COLLECTION CLERK documented in this encounter Results * SCAN - LABS (07/23/2016 12:00 AM OUT OF TOWN COLLECTION CLERK) Narrative 07/23/2016 12:00 AM OUT OF TOWN COLLECTION CLERK Ordered by an unspecified provider. us Historical [...] documented as of this encounter Care Teams Social Worker Clinical Relationship Specialty Start Date End Date Hernando Velasquez MD PCP - General 12/23/18 06/13/19 Bernardo Edwards MD [address] [place] [address] PCP - General 07/05/20 07/06/20 Hernando Velasquez MD PCP - General 07/07/20 07/07/20 Bernardo Edwards MD [address] [place] [address] PCP - General 07/08/20 01/06/22 Bernardo Edwards MD [address] [place] [address] PCP - General 06/14/19 07/04/20 Hernando Velasquez MD PCP - General Internal Medicine 01/07/22 Jose Manuel Gruber MD Fellow Orthopedic Surgery 07/06/19 documented as of this encounter
[2024-09-15] MEDS: ACETAMINOPHEN 650 MG SUPPOSITORY RECTAL ×2 (10:55→16:55)
[2024-09-15] MEDS: SODIUM CHLORIDE 0.9% IV 1,000 ML 999 ML IV CONT ×2 (10:56→10:57)
[2024-09-15] MEDS: SODIUM CHLORIDE 0.9% IV 700 ML 999 ML IV CONT (10:57)
[2024-09-15 10:59] LABS: Lactic Acid Reflex 1.7 mmol/L (0.7-2.0)
[2024-09-15 11:02] LABS: Alanine Aminotransferase 31 U/L (6-35); Albumin Level 3.7 g/dL (3.5-5.1); Alkaline Phosphatase 96 U/L (38-126); Anion Gap 11 mmol/L (4-12); Aspartate Amino Transferase 38 U/L (14-36); Bilirubin,Total 0.7 mg/dL (0.2-1.3); Blood Urea Nitrogen 25 mg/dL (7-17); CRP 2.5 mg/dL (<1.0); Calcium 9.2 mg/dL (8.4-10.2); Carbon Dioxide 24 mmol/L (22-30); Chloride 107 mmol/L (98-107); Estimated CRCL calculation 69 ml/min; Estimated Glomerular Filt Rate > 60; Glucose 130 mg/dL (65-110); Magnesium 1.8 mg/dL (1.6-2.3); Potassium 4.8 mmol/L (3.4-5.0); Sodium 142 mmol/L (137-145)
[2024-09-15 11:18] LABS: Influenza A QL RT-PCR Negative (Negative); Influenza B QL RT-PCR Negative (Negative); RSV RNA, RT-PCR Negative (Negative); SARS-CoV-2 RNA PCR Negative (Negative)
[2024-09-15 11:21] LABS: Alveolar/Arterial O2 Gradient 42.8 mmHg; Base Excess ABG -0.1 mEq/l (+/-2.0); Carboxyhemoglobin 0.7 % THb (0-2.0); Fractional Inspired Oxygen 21 %; Methemoglobin ABG 0.2 %THb (0-1.5); Oxygen Content ABG 17.3 %vol (16.0-22.0); Oxygen Saturation ABG 94.6 % (95.0-100.0); Oxyhemoglobin 92.5 % THb (90.0-100.0); PO2 ABG 67.4 mmHg (80.0-100.0); PO2 FiO2 Ratio Arterial Blood 3.21 %; Reduced Hemoglobin 6.6 %THb (0-5.0); Total Hemoglobin 13.3 g/dL (12.0-18.0); pH ABG 7.462 (7.350-7.450)
--- NOTE | 2024-09-15 11:21 | PCRCNOTE ---
ABG'S delayed due to pt being a hard stick attempted 3 times
[2024-09-15 11:24] LABS: Device ROOM AIR; Site Drawn LEFT BRACHIAL
[2024-09-15] MEDS: CEFEPIME 2 GM/NS 50 ML 2 GM/50 ML BAG IVPB ×2 (11:36→20:44)
[2024-09-15] MEDS: VANCOMYCIN 1,250 MG/NS 250 ML 1,250 MG/250 ML BAG 166.67 MG IVPB (12:07)
--- NOTE | 2024-09-15 12:56 | P.HP_ITS ---
H&P: HPI History of Present Illness Date/Time: 09/15/24 12:56 Chief Complaint: fever, AMS Narrative: This is a 73-year-old female that resides at a local Nursing Facility, who was originally discharged from [facility] with pneumonia, that presented back to the Emergency department with weakness, fever and altered mental status. This patient has a significant history of chronic hyponatremia, anemia, Bipolar disorder, Chronic resp failure on home oxygen, GERD, epilepsy, and neurocognitive disorder. On arrival from nursing facility she appeared fatigued A&O x2 Emergency department noted vital signs on arrival temperature 101.2?, heart rate of 135, respirations 34, blood pressure 1 and 108, oxygen saturation 93% on room air. Further workup noted white blood cell count of 19.8, hemoglobin 14.1 hematocrit 42.2 platelets are 286. BUN is 25 creatinine 0.2, GFR greater than 60. Lactic acid was 1.7 CRP 2.5. Chest x-ray one view noted no acute cardiopulmonary disease process. CT head noted no acute abnormalities. Urinalysis noted 2+ leukocytes, white blood cell count greater than 100, no bacteria was noted negative nitrates 2+ protein. He has noted a pH of 7.46, pCO2 33.0, PO2 67.4, bicarb 23.0, O2 94.6%. Patient was given IV fluid bolus, as well as antipyretics. Patient's repeat vital signs noted temperature of a 100.6?, pulse rate 117, respirations 25, blood pressure was 196/80, she is tending present on room air. Carr catheter was placed in the emergency department. Thick purulent urine was noted. IV vancomycin and cefepime started in the emergency department patient was admitted for further management of UTI, AMS[facility] Past Medical History Medical History Kidney stone Chronic anemia Chronic respiratory failure with hypoxia, on home oxygen therapy Bipolar disorder Gastroesophageal reflux disease Hyperlipidemia Hypertension Obstructive sleep apnea intolerant to CPAP Left tibial fracture Chronic hyponatremia Shingles Anxiety Depression Gastroparesis Diverticulitis Asthma Epilepsy no longer on medication Seasonal allergies Surgical History Surgical History History of left above knee amputation History of right shoulder replacement History of cholecystectomy History of left knee replacement History of hysterectomy History of open reduction and internal fixation (ORIF) procedure Left tibia and right ankle. History of appendectomy History of tonsillectomy Family History Family History Mother Suicide Depression Heart disease Hypertension Heart failure Sibling Suicide Father Diabetes mellitus Emphysema lung Social History Social History Social History: Surrogate medical decision maker: Martina Rodney, daughter. Code status: Full code. Smoking status: Never smoker Second hand tobacco smoke exposure: No Alcohol intake: never Substance use: never Substance use type: does not use Do You Feel Safe in your Home?: Yes Lack of Transportation: No Lack of Food: Never True Current Housing: I Have Housing Concerned About Future Housing: No Difficulty Paying Gas/Electric Bills: No Difficulty Paying for Meds: No Currently Unemployed: No Education: Decline to Answer Difficulty w/ Childcare or Family Care: No Living arrangements: skilled nursing village Occupation/Education: retired Spiritual care concerns: No Agree to blood products: No Meds Home Medications and Allergies Home Medications ?Medication ?Instructions ?Recorded ?Confirmed ?Type atorvastatin 10 mg tablet 10 mg PO HS 09/09/19 09/07/24 History cholecalciferol (vitamin D3) 10 5,000 unit PO DAILY 09/09/19 09/07/24 History mcg (400 unit) tablet fluticasone propionate 50 2 spray intranasal DAILY 09/09/19 09/07/24 History mcg/actuation nasal spray,suspension pantoprazole 40 mg tablet,delayed 40 mg PO DAILY 09/09/19 09/07/24 History release primidone 50 mg tablet 200 mg PO BID 09/09/19 09/07/24 History vitamin E 268 mg (400 unit) capsule 800 unit PO DAILY 09/09/19 09/07/24 History docusate sodium 100 mg tablet 100 mg PO DAILY PRN Constipation 05/31/20 09/07/24 History spironolactone 25 mg tablet 25 mg PO DAILY 05/31/20 09/07/24 History baclofen 10 mg tablet 10 mg PO TID 02/19/21 09/07/24 History albuterol sulfate 90 mcg/actuation 1 inh inhalation DAILY PRN 04/23/24 09/07/24 History aerosol inhaler sob/wheezing amlodipine 10 mg tablet 10 mg PO DAILY 04/23/24 09/07/24 History bisacodyl 5 mg tablet,delayed 10 mg PO HS PRN Constipation 04/23/24 09/07/24 History release (Dulcolax (bisacodyl)) budesonide-formoterol HFA 160 2 puff inhalation BID 04/23/24 09/07/24 History mcg-4.5 mcg/actuation aerosol inhaler guaifenesin 1,200 mg tablet, 1,200 mg PO BID 04/23/24 09/07/24 History extended release 12 hr (Mucinex) memantine 5 mg tablet 5 mg PO BID 04/23/24 09/07/24 History metoprolol tartrate 100 mg tablet 100 mg PO BID 04/23/24 09/07/24 History ondansetron HCl 4 mg tablet 4 mg PO TID 04/23/24 09/07/24 History polyethylene glycol 3350 17 17 g PO DAILY PRN Constipation 04/23/24 09/07/24 History gram/dose oral powder (Miralax) sodium chloride 0.65 % nasal spray 2 spray intranasal PRN PRN 04/23/24 09/07/24 History aerosol Congestion vitamin B complex 1 tablet PO DAILY 04/23/24 09/07/24 History pregabalin 150 mg capsule (Lyrica) 150 mg PO BID #14 caps 05/04/24 09/07/24 Rx sodium chloride 1,000 mg soluble 1,000 mg PO BID #60 tabs 05/04/24 09/07/24 Rx tablet diclofenac sodium 1 % topical gel 2 g topical BID PRN moderate pain 08/06/24 09/07/24 History (Voltaren Arthritis Pain) (scale score 5-6) isosorbide mononitrate 30 mg 30 mg PO DAILY 08/06/24 09/07/24 History tablet,extended release 24 hr lidocaine 5 % topical patch 2 patch topical DAILY 08/06/24 09/07/24 History (Lidoderm) magnesium hydroxide 400 mg/5 mL 30 ml PO DAILY PRN constipation 08/06/24 09/07/24 History oral suspension (Gentle Laxative (magnesium hydroxide)) hydralazine 10 mg tablet 10 mg PO QID #30 tabs 08/14/24 09/07/24 Rx oxycodone 5 mg tablet 5 mg PO Q4-6H PRN Pain #7 tabs 08/14/24 09/07/24 Rx peg [id number] 1 1 drp EACH EYE QID PRN Dry Eye(S) 08/14/24 09/07/24 Rx %-0.2 %-0.2 % eye drops #30 mL (Artificial Tears ([id number])) clonidine HCl 0.1 mg tablet 0.1 mg PO DAILY 09/07/24 09/07/24 History furosemide 20 mg tablet (Lasix) 20 mg PO BID 09/07/24 09/07/24 History isosorbide dinitrate 30 mg tablet 30 mg PO QID 09/07/24 09/07/24 History lorazepam 0.5 mg tablet 0.5 mg PO Q6H PRN Anxiety 09/07/24 09/07/24 History losartan 100 1 tablet PO DAILY 09/07/24 09/07/24 History mg-hydrochlorothiazide 25 mg tablet rivaroxaban 20 mg tablet (Xarelto) 20 mg PO Q24H 09/07/24 09/07/24 History potassium chloride 10 mEq 10 meq PO DAILY #7 tabs 09/14/24 Rx tablet,extended release (Klor-Con) Allergies Allergy/AdvReac Type Severity Reaction Status Date / Time Fish Containing Products Allergy Severe Dyspnea / Verified 04/23/24 19:11 SOB Iodinated Contrast Media Allergy Intermediate HIVES, RED Verified 04/27/24 08:14 FACE iodine Allergy Unknown Unknown Verified 04/23/24 19:11 Barbiturates Allergy Unknown Verified 04/23/24 19:11 bupivacaine Allergy Unknown Verified 04/23/24 20:51 diazepam (From Valium) Allergy Unknown Verified 04/23/24 19:11 latex Allergy Unknown Verified 04/23/24 19:11 menthol Allergy Unknown Verified 04/23/24 20:51 Sulfa (Sulfonamide Allergy Unknown Verified 04/23/24 19:11 Antibiotics) thiopental (From Pentothal) Allergy Unknown Verified 04/27/24 08:14 wool Allergy Unknown Verified 04/23/24 20:51 Vital Signs Vital Signs - 24 hr 09/15/24 10:04 09/15/24 10:30 09/15/24 10:45 Temperature 101.2 F H 100.1 F H 101.0 F H Pulse Rate 135 H 134 H 131 H Respiratory Rate 34 H 34 H 25 H Blood Pressure 188/108 H 185/85 H Pulse Oximetry 93 95 09/15/24 11:00 09/15/24 11:15 09/15/24 11:30 Temperature 101.1 F H 100.8 F H 100.6 F H Pulse Rate 132 H 123 H 118 H Respiratory Rate 34 H 31 H 27 H Blood Pressure Pulse Oximetry 95 98 09/15/24 11:53 09/15/24 12:00 09/15/24 12:02 Temperature 100.6 F H Pulse Rate 120 H 120 H Respiratory Rate 27 H 29 H Blood Pressure 167/89 H 185/82 H Pulse Oximetry 97 97 09/15/24 12:17 09/15/24 12:45 Temperature 97.9 F Pulse Rate 117 H 116 H Respiratory Rate 25 H 20 Blood Pressure 196/85 H 184/85 H Pulse Oximetry 100 98 Exam Const: General: no acute distress, alert, lethargic and obese Nutritional Appearance: obese Orientation/consciousness: oriented to person, oriented to place and lethargic Limitations: altered mental status and physical limitations HENMT: Head: normal to inspection and normocephalic Eyes: General: appearance normal, both eyes and all related structures Neck: Neck: normal visual inspection, full ROM and no lymphadenopathy Chest: Chest palpation & inspection: normal inspection of the chest Resp: Effort & Inspection: normal respiratory effort Auscultation: clear to auscultation bilaterally Cardio: Rate: tachycardic Rhythm: regular rhythm Heart sounds: S1 normal heart sound present and S2 normal heart sound present GI: Inspection: normal to inspection GI Palp: Yes Soft to palpation Auscultation: normal bowel sounds Urinary Catheter: Urinary Catheter: patent and draining and urine cloudy Skin: General skin exam: normal color and no rashes or lesions noted Neuro: General: oriented to person and oriented to place Cranial nerves: Yes CN's II-XII intact bilaterally Speech: normal speech Gait exam (Neuro): Unable to assess gait and Other gait observations present (left AKA) Extrem: Right upper extremity: normal to inspection Left upper extremity: normal to inspection Right lower extremity: normal to inspection Left lower extremity: lower leg (left AKA) Psych: Affect: normal affect Attitude: cooperative H&P: Results Labs Labs: Short CBC 09/15/24 Range/Units 10:24 WBC 19.8 H (4.5-10.0) K/mm3 Hgb 14.1 (12.0-15.0) g/dL Hct 42.2 (37.0-47.0) % Plt Count 286 (150-375) k/mm3 BMP 09/15/24 10:24 Sodium 142 Potassium 4.8 Chloride 107 Carbon Dioxide 24 BUN 25 H Creatinine 0.72 Glucose 130 H Calcium 9.2 Liver Function 09/15/24 Range/Units 10:24 Total Bilirubin 0.7 (0.2-1.3) mg/dL AST 38 H (14-36) U/L ALT 31 (6-35) U/L Alkaline Phosphatase 96 (38-126) U/L Albumin 3.7 (3.5-5.1) g/dL Urine 09/15/24 Range/Units 10:24 Urine Color Yellow (Yellow) Urine Appearance Cloudy H (Clear) Urine pH 5.5 (5.0-9.0) Ur Specific [place] 1.018 (1.001-1.035) Urine Protein 2+ H (Negative) mg/dL Urine Glucose (UA) Negative (Negative) mg/dL ABG ABG results: PH 7.46 PCO2 33.0 Po2 67.4 HCO3 23.0 O2 94.6 Attestation: I personally reviewed and interpreted this ABG as follows: Imaging Chest x-ray: Radiologist's impression: FINDINGS: The lungs are clear with no focal airspace opacities, pulmonary edema, pleural effusion or pneumothorax. The cardiomediastinal silhouette is normal. Visualized bones and soft tissues are unremarkable. IMPRESSION: 1. No acute cardiopulmonary disease. CT scan - head: Radiologist's impression: FINDINGS: There are regions of encephalomalacia at the bilateral cerebellar hemispheres consistent with chronic infarcts. No acute intracranial hemorrhage, acute infarction or abnormal extra axial fluid collection. There is mild scattered white matter hypoattenuation consistent with chronic small vessel ischemic disease. Symmetric prominence of the sulci and ventricles consistent with moderate diffuse cerebral volume loss. No mass/mass effect. The orbits, paranasal sinuses and mastoid air cells are normal. IMPRESSION: 1. 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 No acute intracranial process. 2. Age-related changes including moderate diffuse on loss and mild scattered white matter hypoattenuation consistent with chronic small vessel ischemic disease. Assessment and Plan Assessment and plan (1) AMS (altered mental status): Qualifiers: Altered mental status type: unspecified Qualified Code(s): R41.82 - Altered mental status, unspecified Code(s): R41.82 - Altered mental status, unspecified Status: Acute Assessment and Plan: ##R/t UTI - normal baseline A/o 3 with slow speech --> monitor closely -->continue with IV ATB - Vanco - Cefepime --> Continue IV fluids (2) UTI (urinary tract infection): Qualifiers: Hematuria presence: without hematuria Urinary tract infection type: acute cystitis Qualified Code(s): N30.00 - Acute cystitis without hematuria Code(s): N39.0 - Urinary tract infection, site not specified Status: Acute Assessment and Plan: ## history of Klebsiella pneumoniae 04/2024 - susceptible to cefepime --> continue with IV ATB - Vanco - Cefepime --> trend CBC --> follow urine culture - carr to continue at this time. (3) Sepsis: Qualifiers: Sepsis acute organ dysfunction status: unspecified Sepsis type: sepsis due to unspecified organism Qualified Code(s): A41.9 - Sepsis, unspecified organism Code(s): A41.9 - Sepsis, unspecified organism Status: Acute Assessment and Plan: ## r/t UTI --> lactic 1.7 --. given IV fluid resuscitation in the emergency department --> fever control --> trend labs Plan DVT -mechanical Code status -full code Disposition -once stable patient will return back to the assisted Quality VTE Prophylaxis VTE prophylaxis: mechanical ordered Hospitalist MIPS Advance Care Plan I have confirmed that the patient's Advanced Care Plan is present, code status is documented, or surrogate decision maker is listed in patient medical record.: Yes Medication Reconciliation I have utilized all available resources to obtain, update and review the patients current medications (includes all prescriptions, OTC, herbals, cannabis, and nutritional supplements).: Yes
[2024-09-15 13:08] LABS: MRSA (PCR) NOT DETECTED (NOT DETECTE)
[2024-09-15] MEDS: hydrALAZINE HCL 20 MG/ML VIAL 10 MG IV PUSH (13:27)
[2024-09-15] MEDS: VANCOMYCIN 1,000 MG/NS 250 ML 1,000 MG/250 ML BAG 250 MG IVPB (14:14)
--- NOTE | 2024-09-15 18:16 | ADMGEN ---
This patient, Celestina Ewing, was admitted to Medical Room 342-01. Patient/family oriented to hospital policies and general routines including ID bracelet, bed and alarms, visiting hours, pain management, procedures, bathroom and other care routines, personal items, smoking policy, room service/diet, and visiting hours. Information on how to activate the Rapid Response Team has been discussed. Patient/Family are encouraged to report perceived risks to care and to ask questions if they do not understand what they are told or what they should do. report received from Sherry
[2024-09-15] MEDS: METOPROLOL TARTRATE INJ 5 MG/5 ML VIAL IV PUSH (20:43)
[2024-09-16] VITALS (21 sets, daily range): BP systolic 159–192; BP diastolic 66–88; PULSE 100–126; RESP 20–36; TEMP 37–37.7; O2SAT 93–100
[2024-09-16] MEDS: CEFEPIME 2 GM/NS 50 ML 2 GM/50 ML BAG IVPB ×3 (04:55→21:38)
--- NOTE | 2024-09-16 04:59 | PC.NURSE ---
Informed Megan of pts high BP. She said she was ok with it. Will continue to monitor.
[2024-09-16 06:45] LABS: Basophils Absolute Auto 0.1 K/mm3 (0.0-0.1); Basophils Percent Auto 0.4 % (0.2-1.2); Eosinophils Absolute Auto 0.2 K/mm3 (0-0.3); Eosinophils Percent Auto 1.1 % (0-4.4); Hematocrit 34.8 % (37.0-47.0); Hemoglobin 11.3 g/dL (12.0-15.0); Immature Granulocyte Absolute 0.13 K/mm3 (0.00-0.031); Immature Granulocyte Percent A 0.7 % (0-0.5); Immature Platelet Fraction Pct 4.8 % (0.9-11.2); Lymphocytes Absolute Auto 2.12 K/mm3 (0.9-3.2); Lymphocytes Percent Auto 11.7 % (18.3-44.2); Mean Corpuscular HGB Conc 32.5 g/dl (32-36); Mean Corpuscular Hemoglobin 30.7 pg (26-34); Mean Corpuscular Volume 94.6 fl (80-100); Monocytes Absolute Auto 1.3 K/mm3 (0.1-0.6); Monocytes Percent Auto 7.4 % (2.6-8.5); Neutrophils Absolute Auto 14.3 K/mm3 (1.3-6.7); Neutrophils Percent Auto 78.7 % (45.5-73.1); Platelet Count Result 194 k/mm3 (150-375); Red Blood Count 3.68 M/mm3 (4.2-5.4); Red Cell Distribution Width 15.3 % (11.5-14.5); White Blood Count 18.2 K/mm3 (4.5-10.0)
[2024-09-16 07:05] LABS: Alanine Aminotransferase 44 U/L (6-35); Albumin Level 2.8 g/dL (3.5-5.1); Alkaline Phosphatase 74 U/L (38-126); Anion Gap 10 mmol/L (4-12); Aspartate Amino Transferase 56 U/L (14-36); Bilirubin,Total 0.6 mg/dL (0.2-1.3); Blood Urea Nitrogen 13 mg/dL (7-17); Calcium 8.2 mg/dL (8.4-10.2); Carbon Dioxide 21 mmol/L (22-30); Chloride 112 mmol/L (98-107); Estimated CRCL calculation 98 ml/min; Estimated Glomerular Filt Rate > 60; Glucose 101 mg/dL (65-110); Sodium 143 mmol/L (137-145)
[2024-09-16] MEDS: VANCOMYCIN 1,250 MG/NS 250 ML 1,250 MG/250 ML BAG 166.67 MG IVPB ×2 (07:45→19:12)
--- NOTE | 2024-09-16 07:49 | P.PNIM_ITS ---
Progress Note: A&P Assessment and Plan (1) AMS (altered mental status): Qualifiers: Altered mental status type: unspecified Qualified Code(s): R41.82 - Altered mental status, unspecified Code(s): R41.82 - Altered mental status, unspecified Status: Acute Assessment and Plan: ##R/t UTI - normal baseline A/o 3 with slow speech --> monitor closely -->continue with IV ATB - Vanco - Cefepime -->stop IV fluids due to risk of overload --> patient was on Room Air all night, was to have 2 liters with CPAP at night. --> patient is on O2 now. --> repeat ABGs note improvement with O2 placement, (2) UTI (urinary tract infection): Qualifiers: Hematuria presence: without hematuria Urinary tract infection type: acute cystitis Qualified Code(s): N30.00 - Acute cystitis without hematuria Code(s): N39.0 - Urinary tract infection, site not specified Status: Acute Assessment and Plan: ## history of Klebsiella pneumoniae 04/2024 - susceptible to cefepime --> continue with IV ATB - Vanco - Cefepime --> trend CBC --> follow urine culture - carr to continue at this time for accurate I&O. (3) Sepsis: Qualifiers: Sepsis acute organ dysfunction status: unspecified Sepsis type: sepsis due to unspecified organism Qualified Code(s): A41.9 - Sepsis, unspecified organism Code(s): A41.9 - Sepsis, unspecified organism Status: Acute Assessment and Plan: ## r/t UTI --> lactic 1.7 --. given IV fluid resuscitation in the emergency department --> fever control --> trend labs wbc trending down (4) Tachycardia: Code(s): R00.0 - Tachycardia, unspecified Status: Acute Assessment and Plan: - continue home medications - IV lopressor x1 given this am - IV lasix for possible overload. - O2 on per nasal canula at 2 liters, at ALL TIMES. - CPAP when sleeping and HS. (5) Hypertension: Code(s): I10 - Essential (primary) hypertension Status: Acute Assessment and Plan: - continue home medications - IV lopressor x1 given this am - IV lasix for possibel overload. (6) Acute and chronic respiratory failure: Qualifiers: Respiratory failure complication: hypoxia Qualified Code(s): J96.21 - Acute and chronic respiratory failure with hypoxia Code(s): J96.20 - Acute and chronic respiratory failure, unspecified whether with hypoxia or hypercapnia Status: Acute Assessment and Plan: ##intial ABG in ER - pH of 7.46, pCO2 33.0, PO2 67.4, bicarb 23.0, O2 94.6%. --> patient is to be on 2 L per nasal cannula at all times, patient however did not have any oxygen on at all throughout the evening. --> ABGs repeated this a.m., --PH 7.475, pCO2 35.7, PO2 73.4, bicarb 25.7, O2 95.7% --> monitor O2 sat (7) Obstructive sleep apnea: Code(s): G47.33 - Obstructive sleep apnea (adult) (pediatric) Status: Acute Assessment and Plan: --> patient does have oxygen at 2 L at all times, --> up to 4 L at night, if not wearing CPAP. --> orders for CPAP at night and while sleeping in the hospital if tolerated Plan DVT -mechanical Code status -full code Disposition -once stable patient will return back to the senior living Time Spent With Patient Time with patient: Greater than 35 minutes (55 minutes) Subjective Date/time seen: 09/16/24 07:49 Interval history: This is a 73-year-old female that resides at a local Nursing Facility, who was originally discharged from [facility] with pneumonia, that presented back to the Emergency department with weakness, fever and altered mental status. This patient has a significant history of chronic hyponatremia, anemia, Bipolar disorder, Chronic resp failure on home oxygen at 2 L, GERD, epilepsy, and neurocognitive disorder. On arrival from nursing facility she appeared fatigued A&Ox2. This a.m. patient was found to be an O x1, however patient was also found to be on room air. According to documentation patient was on room air throughout the evening. Place patient back on oxygen and noted saturation was improving. ABGs, and chest x-ray were ordered. Patient blood pressure and heart rate were elevated, however patient received under her medications, ordered Lopressor IV, as well as Lasix due to potential for fluid overload. Patient was more responsive, however remains a no x2. Denies any active distress. Review of Systems Review of Systems: ROS unobtainable: Yes unobtainable due to medical condition Exam Const: General: no acute distress, alert, lethargic and obese Nutritional Appearance: obese Orientation/consciousness: oriented to person, oriented to place and lethargic Limitations: altered mental status and physical limitations HENMT: Head: normal to inspection and normocephalic Eyes: General: appearance normal, both eyes and all related structures Neck: Neck: normal visual inspection, full ROM and no lymphadenopathy Chest: Chest palpation & inspection: normal inspection of the chest Resp: Effort & Inspection: tachypneic Auscultation: clear to auscultation bilaterally Cardio: Rate: tachycardic Rhythm: regular rhythm Heart sounds: S1 normal heart sound present and S2 normal heart sound present GI: Inspection: normal to inspection Auscultation: normal bowel sounds Urinary Catheter: Urinary Catheter: patent and draining and urine cloudy Skin: General skin exam: normal color and no rashes or lesions noted Neuro: General: oriented to person, oriented to place and Unable to assess gait Cranial nerves: Yes CN's II-XII intact bilaterally Speech: normal speech Gait exam (Neuro): Unable to assess gait and Other gait observations present (left AKA) Extrem: Right upper extremity: normal to inspection Left upper extremity: normal to inspection Right lower extremity: normal to inspection Left lower extremity: lower leg (left AKA) Psych: Affect: normal affect Attitude: cooperative Objective Data Vital Signs Vital Signs: Vital Signs - 24 hr 09/15/24 10:04 09/15/24 10:30 09/15/24 10:45 Temperature 101.2 F H 100.1 F H 101.0 F H Pulse Rate 135 H 134 H 131 H Respiratory Rate 34 H 34 H 25 H Blood Pressure 188/108 H 185/85 H Pulse Oximetry 93 95 Oxygen Delivery 09/15/24 11:00 09/15/24 11:15 09/15/24 11:30 Temperature 101.1 F H 100.8 F H 100.6 F H Pulse Rate 132 H 123 H 118 H Respiratory Rate 34 H 31 H 27 H Blood Pressure Pulse Oximetry 95 98 Oxygen Delivery 09/15/24 11:53 09/15/24 12:00 09/15/24 12:02 Temperature 100.6 F H Pulse Rate 120 H 120 H Respiratory Rate 27 H 29 H Blood Pressure 167/89 H 185/82 H Pulse Oximetry 97 97 Oxygen Delivery 09/15/24 12:17 09/15/24 12:45 09/15/24 12:47 Temperature 97.9 F Pulse Rate 117 H 116 H 113 H Respiratory Rate 25 H 20 27 H Blood Pressure 196/85 H 184/85 H 209/88 H Pulse Oximetry 100 98 99 Oxygen Delivery 09/15/24 12:50 09/15/24 13:00 09/15/24 13:01 Temperature 100.1 F H 100.1 F H 100.1 F H Pulse Rate 113 H 111 H 112 H Respiratory Rate 26 H 26 H 26 H Blood Pressure 184/85 H 190/75 H Pulse Oximetry 100 Oxygen Delivery 09/15/24 13:15 09/15/24 13:17 09/15/24 13:24 Temperature 100.1 F H 100.1 F H 100.1 F H Pulse Rate 113 H 110 H 112 H Respiratory Rate 27 H 25 H 28 H Blood Pressure 187/78 H 179/79 H Pulse Oximetry 98 Oxygen Delivery 09/15/24 13:28 09/15/24 13:30 09/15/24 13:31 Temperature 100.1 F H 100.1 F H 100.1 F H Pulse Rate 117 H 118 H 117 H Respiratory Rate 30 H 30 H 27 H Blood Pressure 182/74 H 169/68 H Pulse Oximetry Oxygen Delivery 09/15/24 13:46 09/15/24 14:01 09/15/24 14:16 Temperature 100.0 F H 100.1 F H 100.2 F H Pulse Rate 126 H 127 H 133 H Respiratory Rate 32 H 30 H 32 H Blood Pressure 170/70 H 177/70 H 197/82 H Pulse Oximetry Oxygen Delivery 09/15/24 14:32 09/15/24 15:01 09/15/24 15:17 Temperature 100.4 F H 100.4 F H 100.4 F H Pulse Rate 132 H 129 H 131 H Respiratory Rate 31 H 32 H 33 H Blood Pressure 163/77 H 196/78 H 188/81 H Pulse Oximetry 97 98 97 Oxygen Delivery 09/15/24 15:31 09/15/24 15:46 09/15/24 16:17 Temperature 100.4 F H 100.5 F H 100.6 F H Pulse Rate 134 H 135 H 132 H Respiratory Rate 34 H 28 H 30 H Blood Pressure 185/77 H 194/96 H 191/78 H Pulse Oximetry 98 98 97 Oxygen Delivery 09/15/24 16:46 09/15/24 17:16 09/15/24 17:45 Temperature 100.6 F H 100.5 F H 100.3 F H Pulse Rate 130 H 124 H 120 H Respiratory Rate 29 H 27 H 30 H Blood Pressure 194/76 H 191/73 H Pulse Oximetry 97 97 Oxygen Delivery 09/15/24 18:20 09/15/24 18:27 09/15/24 19:45 Temperature 99.0 F Pulse Rate 121 H 123 H Respiratory Rate 34 H 30 H Blood Pressure 191/79 H Pulse Oximetry 97 98 Oxygen Delivery Room Air 09/15/24 20:00 09/15/24 20:00 09/15/24 20:43 Temperature Pulse Rate 123 H 120 H Respiratory Rate Blood Pressure Pulse Oximetry Oxygen Delivery Room Air 09/15/24 21:33 09/15/24 23:46 09/16/24 00:00 Temperature 98 F Pulse Rate 103 H 106 H Respiratory Rate 28 H Blood Pressure 175/83 H Pulse Oximetry 95 95 Oxygen Delivery Room Air 09/16/24 04:00 09/16/24 04:53 Temperature 98.6 F Pulse Rate 116 H 107 H Respiratory Rate 26 H Blood Pressure 192/72 H Pulse Oximetry 96 Oxygen Delivery Intake/Output Intake/Output: Intake & Output 09/13/24 09/14/24 09/15/24 09/16/24 23:59 23:59 23:59 23:59 Intake Total 3300 0 Output Total 400 1150 Balance 2900 -1150 Meds/Results Medications: Active Medications Generic Name Dose Route Start Last Admin Trade Name Freq PRN Reason Stop Dose Admin Acetaminophen 650 mg 09/15/24 12:45 09/15/24 16:55 Acetaminophen 650 Mg Suppository RECTAL 650 mg Q6H PRN Administration Mild Pain (1-3) or Fever Amlodipine Besylate 10 mg 09/16/24 09:00 Amlodipine Besylate 10 Mg Tablet PO DAILY KELIN Artificial Tears 1 drop 09/15/24 23:37 Artificial Tears Ophth Soln 15 Ml Bottle EACH EYE QID PRN Dry Eye(S) Atorvastatin Calcium 10 mg 09/16/24 00:25 09/16/24 04:55 Atorvastatin 10 Mg Tablet PO Not Given HS KELIN Baclofen 10 mg 09/16/24 09:00 Baclofen 10 Mg Tablet PO TID KELIN Bisacodyl 10 mg 09/15/24 23:37 Bisacodyl 5 Mg Tablet Ec PO HS PRN Constipation Clonidine HCl 0.1 mg 09/16/24 09:00 Clonidine Hcl 0.1 Mg Tablet PO DAILY KELIN Dextrose 12.5 gm 09/15/24 12:45 Dextrose 50% 25 Gm/50 Ml Syringe IV PUSH PRN PRN Hypoglycemia Protocol Diclofenac Sodium 1 applic 09/15/24 23:37 Diclofenac Sodium 1% 100 Gm Gel (*Bkc) TOPICAL BID PRN moderate pain (scale score 5-6) Docusate Sodium 100 mg 09/15/24 23:37 Docusate Sodium 100 Mg Capsule PO DAILY PRN Constipation Fluticasone Propionate 2 spray 09/16/24 09:00 Fluticasone Propionate 0.05% Na Spr 16 Gm Btl (*Bkc) NASAL DAILY KELIN Furosemide 20 mg 09/16/24 09:00 Furosemide 20 Mg Tablet PO BID KELIN Glucagon 1 mg 09/15/24 12:45 Glucagon For Inj 1 Mg Vial IM PRN PRN Hypoglycemia Protocol Glucose 15 gm 09/15/24 12:45 Glucose Oral Gel 15 Gm Of Glucse In 37.5 Gm Tube PO PRN PRN Hypoglycemia Protocol Guaifenesin 1,200 mg 09/16/24 09:00 Guaifenesin 12 Hr 600 Mg Tabcr PO BID KELIN Hydralazine HCl 10 mg 09/16/24 09:00 Hydralazine 10 Mg Tablet PO QID KELIN Hydrochlorothiazide 25 mg 09/16/24 09:00 Hydrochlorothiazide 25 Mg Tablet PO QAM KELIN Cefepime HCl 2 gm in 50 mls @ 100 mls/hr 09/15/24 20:00 09/16/24 04:55 Maxipime 2 Gm/Ns 50 Ml IVPB 100 mls/hr Q8HR KELIN Administration Dextrose 1,000 mls @ 100 mls/hr 09/15/24 12:45 Dextrose 5% 1,000 Ml IVPB PRN PRN Hypoglycemia Protocol Vancomycin HCl 1,250 mg in 250 mls @ 166.667 mls/hr 09/16/24 07:00 09/16/24 07:45 Vancomycin 1,250 Mg/Ns 250 Ml IVPB 166.67 mls/hr Q12H [facility] Administration Isosorbide Mononitrate 30 mg 09/16/24 09:00 Isosorbide Mononitrate 30 Mg Tab.Er.24h PO DAILY [facility] Lidocaine 2 patch 09/16/24 09:00 Lidocaine 5% Patch TOPICAL DAILY [facility] Lorazepam 0.5 mg 09/15/24 23:37 Lorazepam (*Crx) 0.5 Mg Tablet PO Q6H PRN Anxiety Losartan Potassium 100 mg 09/16/24 09:00 Losartan Potassium 100 Mg Tablet PO DAILY [facility] Magnesium Hydroxide 30 ml 09/15/24 23:37 Magnesium Hydroxide Susp 30 Ml Udc PO DAILY PRN constipation Memantine 5 mg 09/16/24 00:25 09/16/24 04:55 Memantine 5 Mg Tablet PO Not Given Q12HR [facility] Metoprolol Tartrate 100 mg 09/16/24 00:25 09/16/24 04:55 Metoprolol Tartrate 50 Mg Tab PO Not Given Q12HR [facility] Ondansetron HCl 4 mg 09/15/24 12:45 Ondansetron Inj 4 Mg/2 Ml Vial IV PUSH Q4H PRN Nausea Oxycodone HCl 5 mg 09/15/24 23:37 Oxycodone Hcl (*Crx) 5 Mg Tab Ir PO Q4-6H PRN Pain Rated 7-10 Pantoprazole Sodium 40 mg 09/16/24 09:00 Pantoprazole 40 Mg Tablet PO DAILY [facility] Polyethylene Glycol 17 gm 09/15/24 23:37 Polyethylene Glycol 3350 17 Gm Powd.Pack PO DAILY PRN Constipation Potassium Chloride 10 meq 09/16/24 09:00 Potassium Chloride 10 Meq Er Tablet PO DAILY [facility] Pregabalin 150 mg 09/16/24 00:25 09/16/24 04:55 Pregabalin (*Crx) 75 Mg Capsule PO Not Given Q12HR [facility] Primidone 200 mg 09/16/24 09:00 Primidone 50 Mg Tablet PO BID [facility] Sodium Chloride 2 spray 09/15/24 23:37 Saline 0.65% [place] Soln 44 Ml Btl NASAL PRN PRN Congestion Vitamin B Complex 1 cap 09/16/24 09:00 Vitamin B Complex Capsule PO QAM [facility] Vitamin D 5,000 units 09/16/24 09:00 Cholecalciferol 5,000 Units Tablet PO DAILY [facility] Vitamin E 800 unit 09/16/24 09:00 Vitamin E 400 Unit Capsule PO DAILY KELIN Radiology Results: ITS Impressions Head CT 09/15/24 11:48 IMPRESSION: 1. 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 No acute intracranial process. 2. Age-related changes including moderate diffuse on loss and mild scattered white matter hypoattenuation consistent with chronic small vessel ischemic disease. Chest X-Ray 09/15/24 11:51 IMPRESSION: 1. No acute cardiopulmonary disease. Labs Labs: Laboratory Results - last 24 hr 09/15/24 09/15/24 09/15/24 10:24 11:18 11:51 WBC 19.8 H RBC 4.57 Hgb 14.1 Hct 42.2 MCV 92.3 MCH 30.9 MCHC 33.4 RDW 15.4 H Plt Count 286 MPV 10.4 Immature Gran % (Auto) 0.6 H Neut % (Auto) 79.7 H Lymph % (Auto) 11.0 L [place] % (Auto) 8.1 Eos % (Auto) 0.2 Baso % (Auto) 0.4 Lymph # (Auto) 2.17 [place] # (Auto) 1.6 H Eos # (Auto) 0.0 Baso # (Auto) 0.1 Abs Immat Gran (auto) 0.11 H Absolute Neuts (auto) 15.8 H Absolute Nucleated RBC 0.000 Nucleated RBC % 0.0 % Immature Plt Fraction PT 14.9 H INR 1.1 APTT 27.5 Puncture Site Left brachial ABG pH 7.462 H ABG pCO2 33.0 L ABG pO2 67.4 L ABG PO2/FiO2 Ratio 3.21 ABG HCO3 23.0 ABG O2 Saturation 94.6 L ABG O2 Content 17.3 ABG Base Excess -0.1 A-a Gradient 42.8 Oxyhemoglobin 92.5 Carboxyhemoglobin 0.7 Methemoglobin 0.2 Reduced Hemoglobin 6.6 H Total Hemoglobin 13.3 O2 Delivery Device Room air O2 Liters/Min Not Reportable FiO2 21 Sodium 142 Potassium 4.8 Chloride 107 Carbon Dioxide 24 Anion Gap 11 BUN 25 H Creatinine 0.72 Estim Creat Clear Calc 69 Estimated GFR > 60 Glucose 130 H Lactic Acid 1.7 Calcium 9.2 Magnesium 1.8 Total Bilirubin 0.7 AST 38 H ALT 31 Alkaline Phosphatase 96 C-Reactive Protein 2.5 H Total Protein 7.0 Albumin 3.7 Urine Color Yellow Urine Appearance Cloudy H Urine pH 5.5 Ur Specific [place] 1.018 Urine Protein 2+ H Urine Glucose (UA) Negative Urine Ketones 2+ H Ur Blood (Man) Negative Urine Nitrate Negative Urine Bilirubin Negative Urine Urobilinogen 0.2 Leukocyte Esterase Rfl 2+ H Urine RBC 0-2 Urine WBC >100 H Ur Squamous Epith Cells Occasional Urine Bacteria None seen Urine Casts 0-2 Nasal MRSA (PCR) Not detected Influenza A (RT-PCR) Negative Influenza B (RT-PCR) Negative RSV (RT-PCR) Negative SARS-CoV-2 RNA (RT-PCR) Negative 09/16/24 06:13 WBC 18.2 H RBC 3.68 L Hgb 11.3 L Hct 34.8 L MCV 94.6 MCH 30.7 MCHC 32.5 RDW 15.3 H Plt Count 194 MPV 11.0 H Immature Gran % (Auto) 0.7 H Neut % (Auto) 78.7 H Lymph % (Auto) 11.7 L [place] % (Auto) 7.4 Eos % (Auto) 1.1 Baso % (Auto) 0.4 Lymph # (Auto) 2.12 [place] # (Auto) 1.3 H Eos # (Auto) 0.2 Baso # (Auto) 0.1 Abs Immat Gran (auto) 0.13 H Absolute Neuts (auto) 14.3 H Absolute Nucleated RBC 0.000 Nucleated RBC % 0.0 % Immature Plt Fraction 4.8 PT INR APTT Puncture Site ABG pH ABG pCO2 ABG pO2 ABG PO2/FiO2 Ratio ABG HCO3 ABG O2 Saturation ABG O2 Content ABG Base Excess A-a Gradient Oxyhemoglobin Carboxyhemoglobin Methemoglobin Reduced Hemoglobin Total Hemoglobin O2 Delivery Device O2 Liters/Min FiO2 Sodium 143 Potassium 4.0 Chloride 112 H Carbon Dioxide 21 L Anion Gap 10 BUN 13 D Creatinine 0.45 L Estim Creat Clear Calc 98 Estimated GFR > 60 Glucose 101 Lactic Acid Calcium 8.2 L Magnesium Total Bilirubin 0.6 AST 56 H ALT 44 H Alkaline Phosphatase 74 C-Reactive Protein Total Protein 6.0 L Albumin 2.8 L Urine Color Urine Appearance Urine pH Ur Specific [place] Urine Protein Urine Glucose (UA) Urine Ketones Ur Blood (Man) Urine Nitrate Urine Bilirubin Urine Urobilinogen Leukocyte Esterase Rfl Urine RBC Urine WBC Ur Squamous Epith Cells Urine Bacteria Urine Casts Nasal MRSA (PCR) Influenza A (RT-PCR) Influenza B (RT-PCR) RSV (RT-PCR) SARS-CoV-2 RNA (RT-PCR) Quality VTE Prophylaxis VTE prophylaxis: mechanical ordered Hospitalist MIPS Advance Care Plan I have confirmed that the patient's Advanced Care Plan is present, code status is documented, or surrogate decision maker is listed in patient medical record.: Yes Medication Reconciliation I have utilized all available resources to obtain, update and review the patients current medications (includes all prescriptions, OTC, herbals, cannabis, and nutritional supplements).: Yes
[2024-09-16] MEDS: FUROSEMIDE INJ 40 MG/4 ML VIAL IV PUSH ×2 (08:24→15:44)
[2024-09-16] MEDS: METOPROLOL TARTRATE INJ 5 MG/5 ML VIAL IV PUSH ×2 (08:24→15:44)
[2024-09-16 10:23] LABS: Alveolar/Arterial O2 Gradient 84.1 mmHg; Base Excess ABG 2.3 mEq/l (+/-2.0); Fractional Inspired Oxygen 28 %; HCO3 ABG 25.7 mEq/l (22.0-26.0); Oxygen Content ABG 16.9 %vol (16.0-22.0); Oxygen Saturation ABG 95.7 % (95.0-100.0); Oxyhemoglobin 94.6 % THb (90.0-100.0); PCO2 ABG 35.7 mmHg (35.0-45.0); PO2 ABG 73.4 mmHg (80.0-100.0); PO2 FiO2 Ratio Arterial Blood 2.62 %; Total Hemoglobin 12.7 g/dL (12.0-18.0); pH ABG 7.475 (7.350-7.450)
[2024-09-16 10:27] LABS: Device NASAL CANNULA; Site Drawn RIGHT RADIAL
[2024-09-16] MEDS: hydrALAZINE HCL 20 MG/ML VIAL 10 MG IV PUSH ×2 (10:42→21:42)
[2024-09-16 13:53] LABS: Magnesium 1.6 mg/dL (1.6-2.3)
[2024-09-16 14:02] LABS: NT Pro B Type Natriuretic Pept 2080 pg/mL (19.9-100)
[2024-09-16] MEDS: LIDOCAINE 5% PATCH 2 PATCH TOPICAL (15:00)
[2024-09-16] MEDS: ACETAMINOPHEN 650 MG SUPPOSITORY RECTAL (15:36)
[2024-09-16] MEDS: KCL 20 MEQ/SW 100 ML 100 ML 50 MEQ IVPB (15:52)
[2024-09-16] MEDS: MAGNESIUM SULF 1 GM/D5W 100 ML 1 GM/100 ML BAG IVPB (15:52)
[2024-09-16] MEDS: hydrALAZINE 10 MG TABLET PO (17:32)
[2024-09-16] MEDS: PRIMIDONE 50 MG TABLET 200 MG PO (17:32)
[2024-09-16] MEDS: BACLOFEN 10 MG TABLET PO (17:32)
[2024-09-16] MEDS: guaiFENesin 12 HR 600 MG TABCR 1200 MG PO (17:32)
--- NOTE | 2024-09-16 18:20 | PC.NURSE ---
This patient, Celestina Ewing, was transferred to [facility] on 09/16/24 at 1820. Personal belongings sent with patient. Report given to DARCI Pryor. Appropriate documentation sent with patient.
[2024-09-16] MEDS: LEVALBUTEROL NEB 1.25 MG/3 ML INHALATION (21:54)
[2024-09-16 21:59] LABS: Glucose Point of Care 108 mg/dl (65-105)
[2024-09-17] VITALS (29 sets, daily range): BP systolic 149–175; BP diastolic 52–88; PULSE 73–128; RESP 16–24; TEMP 36.8–37.7; O2SAT 91–100
[2024-09-17] MEDS: LEVALBUTEROL NEB 1.25 MG/3 ML INHALATION ×4 (03:17→20:42)
[2024-09-17 05:55] LABS: Basophils Absolute Auto 0.1 K/mm3 (0.0-0.1); Basophils Percent Auto 0.5 % (0.2-1.2); Eosinophils Absolute Auto 0.2 K/mm3 (0-0.3); Eosinophils Percent Auto 1.6 % (0-4.4); Hematocrit 38.4 % (37.0-47.0); Hemoglobin 12.4 g/dL (12.0-15.0); Immature Granulocyte Absolute 0.09 K/mm3 (0.00-0.031); Immature Granulocyte Percent A 0.7 % (0-0.5); Lymphocytes Absolute Auto 2.03 K/mm3 (0.9-3.2); Lymphocytes Percent Auto 14.9 % (18.3-44.2); Mean Corpuscular HGB Conc 32.3 g/dl (32-36); Mean Corpuscular Hemoglobin 30.2 pg (26-34); Mean Corpuscular Volume 93.7 fl (80-100); Mean Platelet Volume 10.2 fl (7.4-10.4); Monocytes Absolute Auto 1.2 K/mm3 (0.1-0.6); Monocytes Percent Auto 9.1 % (2.6-8.5); Neutrophils Percent Auto 73.2 % (45.5-73.1); Platelet Count Result 277 k/mm3 (150-375); Red Cell Distribution Width 15.3 % (11.5-14.5); White Blood Count 13.6 K/mm3 (4.5-10.0)
[2024-09-17] MEDS: METOPROLOL TARTRATE INJ 5 MG/5 ML VIAL IV PUSH ×3 (05:57→17:29)
[2024-09-17] MEDS: CEFEPIME 2 GM/NS 50 ML 2 GM/50 ML BAG IVPB ×3 (05:58→21:10)
[2024-09-17 06:16] LABS: Alanine Aminotransferase 50 U/L (6-35); Albumin Level 3.3 g/dL (3.5-5.1); Alkaline Phosphatase 98 U/L (38-126); Anion Gap 14 mmol/L (4-12); Aspartate Amino Transferase 56 U/L (14-36); Bilirubin,Total 0.6 mg/dL (0.2-1.3); Blood Urea Nitrogen 16 mg/dL (7-17); Calcium 8.8 mg/dL (8.4-10.2); Carbon Dioxide 22 mmol/L (22-30); Chloride 106 mmol/L (98-107); Estimated CRCL calculation 81 ml/min; Estimated Glomerular Filt Rate > 60; Glucose 109 mg/dL (65-110); Magnesium 2.1 mg/dL (1.6-2.3); Potassium 3.6 mmol/L (3.4-5.0); Sodium 142 mmol/L (137-145)
[2024-09-17 06:19] LABS: Vancomycin Trough 17.9 ug/mL (10.0-20.0)
[2024-09-17] MEDS: hydrALAZINE HCL 20 MG/ML VIAL 10 MG IV PUSH ×2 (06:46→15:34)
[2024-09-17] MEDS: VANCOMYCIN 1,250 MG/NS 250 ML 1,250 MG/250 ML BAG 166 MG IVPB ×2 (07:38→18:25)
[2024-09-17] MEDS: hydrALAZINE 10 MG TABLET PO ×3 (12:17→21:10)
[2024-09-17] MEDS: BACLOFEN 10 MG TABLET PO ×2 (12:17→17:29)
--- NOTE | 2024-09-17 14:19 | P.PNIM_ITS ---
Progress Note: A&P Assessment and Plan (1) AMS (altered mental status): Qualifiers: Altered mental status type: unspecified Qualified Code(s): R41.82 - Altered mental status, unspecified Code(s): R41.82 - Altered mental status, unspecified Status: Acute Assessment and Plan: ##R/t UTI - normal baseline A/o 3 with slow speech --> monitor closely -->continue with IV ATB - Vanco - Cefepime -->stop IV fluids due to risk of overload --> patient was on Room Air all night, was to have 2 liters with CPAP at night. --> patient is on O2 now. --> repeat ABGs note improvement with O2 placement, 09/17/24: * Pt now on room air. * Continue with IV abx of Vanc and Cefepime for now. * Pts mental status improving, awake and answering questions. * MRI without contrast pending as pt is allergic to contrast. 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 * Pt appears to be dry today and remains tachycardic. * No s/s of fluid overload, so NS at 100 ml/hr ordered continuous. * Trend and monitor VS and labs. * BC NGTD * Urine Cx without any growth. (2) UTI (urinary tract infection): Qualifiers: Hematuria presence: without hematuria Urinary tract infection type: acute cystitis Qualified Code(s): N30.00 - Acute cystitis without hematuria Code(s): N39.0 - Urinary tract infection, site not specified Status: Acute Assessment and Plan: ## history of Klebsiella pneumoniae 04/2024 - susceptible to cefepime --> continue with IV ATB - Vanco - Cefepime --> trend CBC --> follow urine culture - carr to continue at this time for accurate I&O. 09/17/24: * Continue current abx as pt is improving. * Urine culture resulted already as negative. * Will consider de-escalating abx tomorrow if pt continues to improve. (3) Sepsis: Qualifiers: Sepsis acute organ dysfunction status: unspecified Sepsis type: sepsis due to unspecified organism Qualified Code(s): A41.9 - Sepsis, unspecified organism Code(s): A41.9 - Sepsis, unspecified organism Status: Acute Assessment and Plan: ## r/t UTI --> lactic 1.7 --. given IV fluid resuscitation in the emergency department --> fever control --> trend labs wbc trending down 09/17/24: * See #s 1 and 2 (4) Tachycardia: Code(s): R00.0 - Tachycardia, unspecified Status: Acute Assessment and Plan: - continue home medications - IV lopressor x1 given this am - IV lasix for possible overload. - O2 on per nasal canula at 2 liters, at ALL TIMES. - CPAP when sleeping and HS. 09/17/24: * Continue Metoprolol tartrate 100 mg BID. * CPAP at night. * No s/s of overload. * Continue Telemetry. * Degree of tachycardia is improving, consider consulting Cards in the AM if no improvement. * Pt appears to have dry oral mucosa. IVF at 100 ml/hr ordered. (5) Hypertension: Code(s): I10 - Essential (primary) hypertension Status: Acute Assessment and Plan: - continue home medications - IV lopressor x1 given this am - IV lasix for possibel overload. 09/17/24: * BP stable. Continue current meds. (6) Acute and chronic respiratory failure: Qualifiers: Respiratory failure complication: hypoxia Qualified Code(s): J96.21 - Acute and chronic respiratory failure with hypoxia Code(s): J96.20 - Acute and chronic respiratory failure, unspecified whether with hypoxia or hypercapnia Status: Acute Assessment and Plan: ##intial ABG in ER - pH of 7.46, pCO2 33.0, PO2 67.4, bicarb 23.0, O2 94.6%. --> patient is to be on 2 L per nasal cannula at all times, patient however did not have any oxygen on at all throughout the evening. --> ABGs repeated this a.m., --PH 7.475, pCO2 35.7, PO2 73.4, bicarb 25.7, O2 95.7% --> monitor O2 sat 09/17/24: * Currently on room air and stable. * Wear 4L supplemental at HS, or preferably wear CPAP. * Monitor and trend VS. (7) Obstructive sleep apnea: Code(s): G47.33 - Obstructive sleep apnea (adult) (pediatric) Status: Acute Assessment and Plan: --> patient does have oxygen at 2 L at all times, --> up to 4 L at night, if not wearing CPAP. --> orders for CPAP at night and while sleeping in the hospital if tolerated 09/17/24: * Continue current plan. Plan DVT -mechanical Code status -full code Disposition -once stable patient will return back to the halfway Time Spent With Patient Time with patient: 15 - 25 minutes Subjective Date/time seen: 09/17/24 1130 Interval history: Pt care was assumed by me today and she is examined at the bedside. She has not been conversational to this point and has not spoken to nursing staff, but as I walk in the room she is talking to the tech, and proceeds to talk to me and knew her name, where she was, that it was a Wednesday in 2024, and she knew specifically she was at [facility]. She stated Jarrell Atwood was president but all other questions were answered appropriately and she followed commands to move her extremities and her left stump BKA. She denies any pain or acute complaints. We are awaiting MRI at this time without contrast as pt has hives on her face with IV contrast and lower suspicion for any other acute abnormalities. She does remain tachycardic despite her Metoprolol 100 mg Q12 hrs. Concern yesterday as she was febrile is that she was septic and she was started on Cefepime and Vancomycin. Urine culture has resulted as negative and her BC are NGTD. WBCs are trending downward. Overall, pt appears to be doing better other than her tachycardia. Will await and re-evaluate in AM and give gentle hydration overnight to assess if there is any improvement. If not, will consider Cardiology consult. Review of Systems Review of Systems: All systems reviewed & are unremarkable except as noted in HPI and below Exam Const: General: comfortable and no acute distress Other: Lying supine in no acute distress at this time. HENMT: Mouth: Yes dry mucous membranes Eyes: General: appearance normal, both eyes and all related structures Neck: Neck: supple and no JVD Resp: Effort & Inspection: normal respiratory effort Auscultation: diminished lung sounds (Likely due to effort being decreased.) Cardio: Rate: tachycardic Rhythm: regular rhythm Heart sounds: no murmurs GI: Inspection: non-distended GI Palp: Yes Soft to palpation Auscultation: normal bowel sounds Skin: General skin exam: normal color, no rashes or lesions noted and no erythema Lesions: no lesions noted Rashes: no rashes noted Wounds: no wounds Neuro: Speech: normal speech (Soft spoken) Motor exam (neuro): Abnormal motor strength present (LLE BKA, Weakness in RLE flexion and extension) Sensory Exam: normal sensation Extrem: General: normal exam except as noted and no edema Other: LLE BKA Psych: Mental Status: mental status grossly normal Affect: normal affect Objective Data Vital Signs Vital Signs: Vital Signs - 24 hr 09/16/24 15:44 09/16/24 16:00 09/16/24 16:36 Temperature 100 F H Pulse Rate 124 H 100 Respiratory Rate Blood Pressure Pulse Oximetry Oxygen Delivery Oxygen Flow Rate 09/16/24 17:30 09/16/24 17:38 09/16/24 20:00 Temperature 99 F Pulse Rate 107 H Respiratory Rate 32 H 20 Blood Pressure 171/85 H 168/68 H Pulse Oximetry 99 100 Oxygen Delivery Nasal Cannula Oxygen Flow Rate 2 09/16/24 20:00 09/16/24 20:00 09/16/24 21:50 Temperature Pulse Rate 105 H Respiratory Rate Blood Pressure Pulse Oximetry 95 96 Oxygen Delivery Nasal Cannula Oxygen Flow Rate 2 2 09/16/24 21:50 09/16/24 22:00 09/16/24 22:00 Temperature Pulse Rate 122 H 125 H 122 H Respiratory Rate 20 20 Blood Pressure Pulse Oximetry Oxygen Delivery Oxygen Flow Rate 09/16/24 22:05 09/17/24 00:00 09/17/24 00:00 Temperature 99.4 F Pulse Rate 122 H 122 H Respiratory Rate 23 H 24 H Blood Pressure 151/55 H Pulse Oximetry 93 95 100 Oxygen Delivery Autopap Nasal Cannula Oxygen Flow Rate 2 09/17/24 00:00 09/17/24 02:00 09/17/24 03:15 Temperature Pulse Rate 114 H 120 H 117 H Respiratory Rate 20 Blood Pressure Pulse Oximetry Oxygen Delivery Oxygen Flow Rate 09/17/24 03:25 09/17/24 04:00 09/17/24 04:00 Temperature 99.4 F Pulse Rate 121 H 121 H Respiratory Rate 20 20 Blood Pressure 157/55 H Pulse Oximetry 100 100 Oxygen Delivery Nasal Cannula Oxygen Flow Rate 2 09/17/24 04:00 09/17/24 05:57 09/17/24 06:00 Temperature Pulse Rate 114 H 128 H 121 H Respiratory Rate Blood Pressure Pulse Oximetry Oxygen Delivery Oxygen Flow Rate 09/17/24 06:45 09/17/24 07:35 09/17/24 08:00 Temperature 99.8 F H Pulse Rate 97 106 H 120 H Respiratory Rate 24 H 24 H Blood Pressure 171/69 H 150/81 H Pulse Oximetry 99 99 Oxygen Delivery Room Air Oxygen Flow Rate 09/17/24 08:00 09/17/24 08:50 09/17/24 08:50 Temperature Pulse Rate 108 H 117 H Respiratory Rate 18 Blood Pressure Pulse Oximetry 91 Oxygen Delivery Room Air Oxygen Flow Rate 09/17/24 08:56 09/17/24 10:00 09/17/24 11:36 Temperature 99.4 F Pulse Rate 116 H 115 H 121 H Respiratory Rate 20 24 H Blood Pressure 165/64 H Pulse Oximetry 97 Oxygen Delivery Oxygen Flow Rate 09/17/24 14:05 09/17/24 14:15 Temperature Pulse Rate 110 H 109 H Respiratory Rate 18 18 Blood Pressure Pulse Oximetry Oxygen Delivery Oxygen Flow Rate Intake/Output Intake/Output: Intake & Output 09/14/24 09/15/24 09/16/24 09/17/24 23:59 23:59 23:59 23:59 Intake Total 3300 850 290 Output Total 400 2025 250 Balance 2900 -1175 40 Meds/Results Medications: Active Medications Generic Name Dose Route Start Last Admin Trade Name Freq PRN Reason Stop Dose Admin Acetaminophen 650 mg 09/16/24 15:06 09/16/24 15:36 Acetaminophen 650 Mg Suppository RECTAL 650 mg Q6H PRN Administration Mild Pain (1-3) or Fever Amlodipine Besylate 10 mg 09/16/24 09:00 09/17/24 10:02 Amlodipine Besylate 10 Mg Tablet PO Not Given DAILY KELIN Artificial Tears 1 drop 09/15/24 23:37 Artificial Tears Ophth Soln 15 Ml Bottle EACH EYE QID PRN Dry Eye(S) Atorvastatin Calcium 10 mg 09/16/24 00:25 09/16/24 21:47 Atorvastatin 10 Mg Tablet PO Not Given HS KELIN Baclofen 10 mg 09/16/24 09:00 09/17/24 12:17 Baclofen 10 Mg Tablet PO 10 mg TID KELIN Administration Bisacodyl 10 mg 09/15/24 23:37 Bisacodyl 5 Mg Tablet Ec PO HS PRN Constipation Clonidine HCl 0.1 mg 09/16/24 09:00 09/17/24 10:03 Clonidine Hcl 0.1 Mg Tablet PO Not Given DAILY KELIN Dextrose 12.5 gm 09/15/24 12:45 Dextrose 50% 25 Gm/50 Ml Syringe IV PUSH PRN PRN Hypoglycemia Protocol Diclofenac Sodium 1 applic 09/15/24 23:37 Diclofenac Sodium 1% 100 Gm Gel (*Bkc) TOPICAL BID PRN moderate pain (scale score 5-6) Docusate Sodium 100 mg 09/15/24 23:37 Docusate Sodium 100 Mg Capsule PO DAILY PRN Constipation Fluticasone Propionate 2 spray 09/16/24 09:00 09/17/24 10:03 Fluticasone Propionate 0.05% Na Spr 16 Gm Btl (*Bkc) NASAL Not Given DAILY KELIN Furosemide 20 mg 09/16/24 09:00 09/17/24 10:03 Furosemide 20 Mg Tablet PO Not Given BID KELIN Glucagon 1 mg 09/15/24 12:45 Glucagon For Inj 1 Mg Vial IM PRN PRN Hypoglycemia Protocol Glucose 15 gm 09/15/24 12:45 Glucose Oral Gel 15 Gm Of Glucse In 37.5 Gm Tube PO PRN PRN Hypoglycemia Protocol Guaifenesin 1,200 mg 09/16/24 09:00 09/17/24 10:03 Guaifenesin 12 Hr 600 Mg Tabcr PO Not Given BID KELIN Hydralazine HCl 10 mg 09/16/24 09:00 09/17/24 12:17 Hydralazine 10 Mg Tablet PO 10 mg QID KELIN Administration Hydralazine HCl 10 mg 09/16/24 22:00 09/17/24 06:46 Hydralazine Hcl 20 Mg/Ml Vial IV PUSH 10 mg Q8HR KELIN Administration Hydrochlorothiazide 25 mg 09/16/24 09:00 09/17/24 10:04 Hydrochlorothiazide 25 Mg Tablet PO Not Given QAM KELIN Cefepime HCl 2 gm in 50 mls @ 100 mls/hr 09/15/24 20:00 09/17/24 06:43 Maxipime 2 Gm/Ns 50 Ml IVPB Infused Q8HR KELIN Infusion Dextrose 1,000 mls @ 100 mls/hr 09/15/24 12:45 Dextrose 5% 1,000 Ml IVPB PRN PRN Hypoglycemia Protocol Vancomycin HCl 1,250 mg in 250 mls @ 166.667 mls/hr 09/16/24 07:00 09/17/24 07:38 Vancomycin 1,250 Mg/Ns 250 Ml IVPB 166 mls/hr Q12H KELIN Administration Isosorbide Mononitrate 30 mg 09/16/24 09:00 09/17/24 10:04 Isosorbide Mononitrate 30 Mg Tab.Er.24h PO Not Given DAILY KELIN Levalbuterol HCl 1.25 mg 09/16/24 20:00 09/17/24 14:05 Levalbuterol Neb 1.25 Mg/3 Ml INHALATION 1.25 mg Q6HRT KELIN Administration Lidocaine 2 patch 09/16/24 09:00 09/17/24 10:04 Lidocaine 5% Patch TOPICAL Not Given DAILY KELIN Lorazepam 0.5 mg 09/15/24 23:37 Lorazepam (*Crx) 0.5 Mg Tablet PO Q6H PRN Anxiety Losartan Potassium 100 mg 09/16/24 09:00 09/17/24 10:04 Losartan Potassium 100 Mg Tablet PO Not Given DAILY KELIN Magnesium Hydroxide 30 ml 09/15/24 23:37 Magnesium Hydroxide Susp 30 Ml Udc PO DAILY PRN constipation Memantine 5 mg 09/16/24 00:25 09/17/24 10:04 Memantine 5 Mg Tablet PO Not Given Q12HR [facility] Metoprolol Tartrate 100 mg 09/16/24 00:25 09/17/24 10:04 Metoprolol Tartrate 50 Mg Tab PO Not Given Q12HR [facility] Metoprolol Tartrate 5 mg 09/17/24 06:00 09/17/24 12:17 Metoprolol Tartrate Inj 5 Mg/5 Ml Vial IV PUSH 5 mg Q6HR KELIN Administration Ondansetron HCl 4 mg 09/15/24 12:45 Ondansetron Inj 4 Mg/2 Ml Vial IV PUSH Q4H PRN Nausea Oxycodone HCl 5 mg 09/15/24 23:37 Oxycodone Hcl (*Crx) 5 Mg Tab Ir PO Q4-6H PRN Pain Rated 7-10 Pantoprazole Sodium 40 mg 09/16/24 09:00 09/17/24 10:05 Pantoprazole 40 Mg Tablet PO Not Given DAILY [facility] Polyethylene Glycol 17 gm 09/15/24 23:37 Polyethylene Glycol 3350 17 Gm Powd.Pack PO DAILY PRN Constipation Potassium Chloride 10 meq 09/16/24 09:00 09/17/24 10:05 Potassium Chloride 10 Meq Er Tablet PO Not Given DAILY KELIN Pregabalin 150 mg 09/16/24 00:25 09/17/24 10:05 Pregabalin (*Crx) 75 Mg Capsule PO Not Given Q12HR KELIN Primidone 200 mg 09/16/24 09:00 09/17/24 10:05 Primidone 50 Mg Tablet PO Not Given BID KELIN Sodium Chloride 2 spray 09/15/24 23:37 Saline 0.65% [place] Soln 44 Ml Btl NASAL PRN PRN Congestion Vitamin B Complex 1 cap 09/16/24 09:00 09/17/24 10:05 Vitamin B Complex Capsule PO Not Given QAM [facility] Vitamin D 5,000 units 09/16/24 09:00 09/17/24 10:03 Cholecalciferol 5,000 Units Tablet PO Not Given DAILY [facility] Vitamin E 800 unit 09/16/24 09:00 09/17/24 10:05 Vitamin E 400 Unit Capsule PO Not Given DAILY [facility] Radiology Results: ITS Impressions Head CT 09/15/24 11:48 IMPRESSION: 1. 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 No acute intracranial process. 2. Age-related changes including moderate diffuse on loss and mild scattered white matter hypoattenuation consistent with chronic small vessel ischemic disease. Chest X-Ray 09/16/24 09:53 IMPRESSION: 1. No acute cardiopulmonary disease. Labs Labs: Laboratory Results - last 24 hr 09/16/24 09/17/24 21:37 05:48 WBC 13.6 H RBC 4.10 L Hgb 12.4 Hct 38.4 MCV 93.7 MCH 30.2 MCHC 32.3 RDW 15.3 H Plt Count 277 MPV 10.2 Immature Gran % (Auto) 0.7 H Neut % (Auto) 73.2 H Lymph % (Auto) 14.9 L [place] % (Auto) 9.1 H Eos % (Auto) 1.6 Baso % (Auto) 0.5 Lymph # (Auto) 2.03 [place] # (Auto) 1.2 H Eos # (Auto) 0.2 Baso # (Auto) 0.1 Abs Immat Gran (auto) 0.09 H Absolute Neuts (auto) 10.0 H Absolute Nucleated RBC 0.000 Nucleated RBC % 0.0 Sodium 142 Potassium 3.6 Chloride 106 Carbon Dioxide 22 Anion Gap 14 H BUN 16 Creatinine 0.56 L Estim Creat Clear Calc 81 Estimated GFR > 60 Glucose 109 POC Capillary Glucose 108 H Calcium 8.8 Magnesium 2.1 Total Bilirubin 0.6 AST 56 H ALT 50 H Alkaline Phosphatase 98 Total Protein 7.0 Albumin 3.3 L Vancomycin Trough 17.9 Quality VTE Prophylaxis VTE prophylaxis: mechanical ordered
[2024-09-17] MEDS: SODIUM CHLORIDE 0.9% IV 1,000 ML 100 ML IV CONT (15:35)
[2024-09-17] MEDS: guaiFENesin 12 HR 600 MG TABCR 1200 MG PO (17:28)
[2024-09-17] MEDS: PRIMIDONE 50 MG TABLET 200 MG PO (17:28)
[2024-09-17] MEDS: FUROSEMIDE 20 MG TABLET PO (17:29)
[2024-09-17] MEDS: ATORVASTATIN 10 MG TABLET PO (21:10)
[2024-09-17] MEDS: METOPROLOL TARTRATE 50 MG TAB 100 MG PO (21:10)
[2024-09-17] MEDS: MEMANTINE 5 MG TABLET PO (21:10)
[2024-09-17 21:22] LABS: Glucose Point of Care 98 mg/dl (65-105)
[2024-09-18] VITALS (25 sets, daily range): BP systolic 109–182; BP diastolic 40–70; PULSE 59–109; RESP 18–22; TEMP 36.7–37.6; O2SAT 90–98; BMI 33.7
[2024-09-18] MEDS: LEVALBUTEROL NEB 1.25 MG/3 ML INHALATION ×3 (02:35→20:47)
[2024-09-18] MEDS: SODIUM CHLORIDE 0.9% IV 1,000 ML 100 ML IV CONT ×2 (04:05→16:38)
[2024-09-18] MEDS: CEFEPIME 2 GM/NS 50 ML 2 GM/50 ML BAG IVPB (05:39)
[2024-09-18 05:55] LABS: Basophils Absolute Auto 0.1 K/mm3 (0.0-0.1); Basophils Percent Auto 0.7 % (0.2-1.2); Eosinophils Absolute Auto 0.3 K/mm3 (0-0.3); Eosinophils Percent Auto 3.6 % (0-4.4); Hematocrit 32.9 % (37.0-47.0); Hemoglobin 10.3 g/dL (12.0-15.0); Immature Granulocyte Absolute 0.04 K/mm3 (0.00-0.031); Immature Granulocyte Percent A 0.6 % (0-0.5); Lymphocytes Absolute Auto 1.53 K/mm3 (0.9-3.2); Lymphocytes Percent Auto 21.4 % (18.3-44.2); Mean Corpuscular HGB Conc 31.3 g/dl (32-36); Mean Corpuscular Hemoglobin 30.7 pg (26-34); Mean Corpuscular Volume 98.2 fl (80-100); Mean Platelet Volume 10.1 fl (7.4-10.4); Monocytes Absolute Auto 0.8 K/mm3 (0.1-0.6); Monocytes Percent Auto 11.6 % (2.6-8.5); Neutrophils Absolute Auto 4.4 K/mm3 (1.3-6.7); Neutrophils Percent Auto 62.1 % (45.5-73.1); Platelet Count Result 221 k/mm3 (150-375); Red Blood Count 3.35 M/mm3 (4.2-5.4); Red Cell Distribution Width 15.1 % (11.5-14.5); White Blood Count 7.1 K/mm3 (4.5-10.0)
[2024-09-18 06:04] LABS: Alanine Aminotransferase 53 U/L (6-35); Albumin Level 2.7 g/dL (3.5-5.1); Alkaline Phosphatase 84 U/L (38-126); Anion Gap 8 mmol/L (4-12); Aspartate Amino Transferase 62 U/L (14-36); Bilirubin,Total 0.5 mg/dL (0.2-1.3); Blood Urea Nitrogen 15 mg/dL (7-17); Calcium 7.4 mg/dL (8.4-10.2); Carbon Dioxide 20 mmol/L (22-30); Chloride 107 mmol/L (98-107); Estimated CRCL calculation 91 ml/min; Estimated Glomerular Filt Rate > 60; Glucose 81 mg/dL (65-110); Potassium 3.5 mmol/L (3.4-5.0); Sodium 135 mmol/L (137-145)
[2024-09-18] MEDS: VANCOMYCIN 1,250 MG/NS 250 ML 1,250 MG/250 ML BAG 166 MG IVPB (06:54)
[2024-09-18] MEDS: hydroCHLOROthiazide 25 MG TABLET PO (08:59)
[2024-09-18] MEDS: amLODIPine BESYLATE 10 MG TABLET PO (08:59)
[2024-09-18] MEDS: LOSARTAN POTASSIUM 100 MG TABLET PO (08:59)
[2024-09-18] MEDS: METOPROLOL TARTRATE 50 MG TAB 100 MG PO ×2 (09:00→21:00)
[2024-09-18] MEDS: hydrALAZINE 10 MG TABLET PO ×4 (09:01→21:00)
[2024-09-18] MEDS: PREGABALIN (*CRX) 75 MG CAPSULE 150 MG PO ×2 (09:01→21:00)
[2024-09-18] MEDS: FUROSEMIDE 20 MG TABLET PO ×2 (09:01→16:45)
[2024-09-18] MEDS: ISOSORBIDE MONONITRATE 30 MG TAB.ER.24H PO (09:02)
[2024-09-18] MEDS: cloNIDine HCL 0.1 MG TABLET PO (09:02)
[2024-09-18] MEDS: POTASSIUM CHLORIDE 10 MEQ ER TABLET PO (09:02)
[2024-09-18] MEDS: PRIMIDONE 50 MG TABLET 200 MG PO ×2 (09:03→16:45)
[2024-09-18] MEDS: CHOLECALCIFEROL 5,000 UNITS TABLET 5000 UNITS PO (09:10)
[2024-09-18] MEDS: VITAMIN B COMPLEX CAPSULE 1 CAP PO (09:10)
[2024-09-18] MEDS: guaiFENesin 12 HR 600 MG TABCR 1200 MG PO ×2 (09:10→16:49)
[2024-09-18] MEDS: VITAMIN E 400 UNIT CAPSULE 800 UNIT PO (09:10)
[2024-09-18] MEDS: BACLOFEN 10 MG TABLET PO ×3 (09:10→16:45)
[2024-09-18] MEDS: MEMANTINE 5 MG TABLET PO ×2 (09:10→21:00)
[2024-09-18] MEDS: PANTOPRAZOLE 40 MG TABLET PO (09:11)
[2024-09-18] MEDS: LIDOCAINE 5% PATCH 2 PATCH TOPICAL (09:11)
[2024-09-18] MEDS: FLUTICASONE PROPIONATE 0.05% NA SPR 16 GM BTL (*BKC) 2 SPRAY NASAL (09:15)
--- NOTE | 2024-09-18 10:02 | P.PNIM_ITS ---
Progress Note: A&P Assessment and Plan (1) AMS (altered mental status): Qualifiers: Altered mental status type: unspecified Qualified Code(s): R41.82 - Altered mental status, unspecified Code(s): R41.82 - Altered mental status, unspecified Status: Acute Assessment and Plan: ##R/t UTI - normal baseline A/o 3 with slow speech --> monitor closely -->continue with IV ATB - Vanco - Cefepime -->stop IV fluids due to risk of overload --> patient was on Room Air all night, was to have 2 liters with CPAP at night. --> patient is on O2 now. --> repeat ABGs note improvement with O2 placement, 09/17/24: * Pt now on room air. * Continue with IV abx of Vanc and Cefepime for now. * Pts mental status improving, awake and answering questions. * MRI without contrast pending as pt is allergic to contrast. 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 * Pt appears to be dry today and remains tachycardic. * No s/s of fluid overload, so NS at 100 ml/hr ordered continuous. * Trend and monitor VS and labs. * BC NGTD * Urine Cx without any growth. 09/18/24: * Pt with decreased orientation today as she will open eyes and track, but not follow commands or answer questions, or if she does it is just a whisper. * Improvement in VS and Labs with resolution of Tachycardia. * MRI performed last evening, pending results. * Final Urine Cx negative and BC with NGTD. 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 09/17/24: * Continue current abx as pt is improving. * Urine culture resulted already as negative. * Will consider de-escalating abx tomorrow if pt continues to improve. 09/18/24: * Interval decline in overall physical mental status, however, improvement in labs and VS. NGTD on blood cultures. Would like to await final culture prior to de-escalating abx, therefore continue with Vancomycin and Cefepime at this time. (3) Sepsis: Qualifiers: Sepsis acute organ dysfunction status: unspecified Sepsis type: sepsis due to unspecified organism Qualified Code(s): A41.9 - Sepsis, unspecified organism Code(s): A41.9 - Sepsis, unspecified organism Status: Acute Assessment and Plan: ## r/t UTI --> lactic 1.7 --. given IV fluid resuscitation in the emergency department --> fever control --> trend labs wbc trending down 09/17/24: * See #s 1 and 2 09/18/24: * Will recheck urine and cxr. * Neuro consulted. Consider LP. (4) Tachycardia: Code(s): R00.0 - Tachycardia, unspecified Status: Resolved Assessment and Plan: - continue home medications - IV lopressor x1 given this am - IV lasix for possible overload. - O2 on per nasal canula at 2 liters, at ALL TIMES. - CPAP when sleeping and HS. 09/17/24: * Continue Metoprolol tartrate 100 mg BID. * CPAP at night. * No s/s of overload. * Continue Telemetry. * Degree of tachycardia is improving, consider consulting Cards in the AM if no improvement. * Pt appears to have dry oral mucosa. IVF at 100 ml/hr ordered. 09/18/24: * Resolved after giving IVF hydration. (5) Hypertension: Code(s): I10 - Essential (primary) hypertension Status: Acute Assessment and Plan: - continue home medications - IV lopressor x1 given this am - IV lasix for possibel overload. 09/17/24: * BP stable. Continue current meds. 09/18/24: * Running at baseline, stable, but slightly elevated. * PRN Hydralazine ordered with parameters. (6) Acute and chronic respiratory failure: Qualifiers: Respiratory failure complication: hypoxia Qualified Code(s): J96.21 - Acute and chronic respiratory failure with hypoxia Code(s): J96.20 - Acute and chronic respiratory failure, unspecified whether with hypoxia or hypercapnia Status: Acute Assessment and Plan: ##intial ABG in ER - pH of 7.46, pCO2 33.0, PO2 67.4, bicarb 23.0, O2 94.6%. --> patient is to be on 2 L per nasal cannula at all times, patient however did not have any oxygen on at all throughout the evening. --> ABGs repeated this a.m., --PH 7.475, pCO2 35.7, PO2 73.4, bicarb 25.7, O2 95.7% --> monitor O2 sat 09/17/24: * Currently on room air and stable. * Wear 4L supplemental at HS, or preferably wear CPAP. * Monitor and trend VS. 09/18/24: * Unchanged respiratory status. * Continue to monitor. * Check CXR given interval change in mental status. (7) Obstructive sleep apnea: Code(s): G47.33 - Obstructive sleep apnea (adult) (pediatric) Status: Acute Assessment and Plan: --> patient does have oxygen at 2 L at all times, --> up to 4 L at night, if not wearing CPAP. --> orders for CPAP at night and while sleeping in the hospital if tolerated 09/17/24: * Continue current plan. 09/18/24: * Continue current plan. Plan DVT -mechanical Code status -full code Disposition -once stable patient will return back to the assisted Time Spent With Patient Time with patient: 15 - 25 minutes Subjective Date/time seen: 09/18/24 10:02 Interval history: This pt was examined at the bedside today in interval assessment. Nurse voices concerns that pt has declined overnight. She was verbal yesterday with me and answered questions appropriately. This AM she is difficult to redirect and does not follow all commands. Her VS are improved with resolution of her tachycardia and her labs are normal. She has been afebrile. She remains on Vanc and Cefepime at this time. No obvious distress noted. She had MRI last evening and we are awaiting the results. Review of Systems Review of Systems: ROS unobtainable: Yes other (Pt not answering questions today.) Exam Const: General: comfortable and no acute distress Other: Female pt lying supine in bed at this time. She does not appear to be in any acute distress, but she is not verbal as she was yesterday. HENMT: Face/Nose/Sinus: Normal nares present Mouth: Yes moist mucous membranes Eyes: General: appearance normal, both eyes and all related structures Sclera: sclerae normal Pupils: Equal, round and reactive pupils present Neck: Neck: supple and no JVD Resp: Effort & Inspection: normal respiratory effort Auscultation: clear to auscultation bilaterally Cardio: Rate: regular rate Rhythm: regular rhythm Heart sounds: no gallops, no murmurs and no rubs GI: Inspection: non-distended GI Palp: Yes Soft to palpation and No Tenderness to palpation present (GI) Skin: General skin exam: normal color Other: Scattered bruises on arms bilaterally. Neuro: General: No gait normal (Unable to test. Pt Left BKA) Speech: No normal speech (Whispering if any response.) Motor exam (neuro): Abnormal motor strength present (Generalized weakness BUE and RLE, but AROM. No focal deficits.) Sensory Exam: normal sensation Extrem: General: normal exam except as noted (Left BKA) Psych: Other: Pt with hx of mental status changes and issues, ability to verbalize waxes and wanes. Objective Data Vital Signs Vital Signs: Vital Signs - 24 hr 09/17/24 11:36 09/17/24 12:00 09/17/24 12:00 Temperature 99.4 F Pulse Rate 121 H 121 H 119 H Respiratory Rate 24 H 24 H Blood Pressure 165/64 H Pulse Oximetry 97 97 Oxygen Delivery Room Air 09/17/24 14:00 09/17/24 14:05 09/17/24 14:15 Temperature Pulse Rate 109 H 110 H 109 H Respiratory Rate 18 18 Blood Pressure Pulse Oximetry Oxygen Delivery 09/17/24 16:00 09/17/24 16:00 09/17/24 16:00 Temperature 98.6 F Pulse Rate 118 H 120 H 120 H Respiratory Rate 24 H 24 H Blood Pressure 149/52 H Pulse Oximetry 97 93 Oxygen Delivery Room Air 09/17/24 18:00 09/17/24 20:00 09/17/24 20:00 Temperature Pulse Rate 101 H 98 Respiratory Rate Blood Pressure Pulse Oximetry Oxygen Delivery Room Air 09/17/24 20:43 09/17/24 20:51 09/17/24 20:52 Temperature Pulse Rate 117 H 105 H Respiratory Rate 18 18 Blood Pressure Pulse Oximetry 91 Oxygen Delivery Room Air 09/17/24 21:07 09/17/24 21:10 09/17/24 22:00 Temperature 98.2 F Pulse Rate 111 H 110 H 91 Respiratory Rate 24 H Blood Pressure 175/88 H Pulse Oximetry 94 Oxygen Delivery 09/17/24 23:13 09/17/24 23:22 09/18/24 00:00 Temperature Pulse Rate 73 78 Respiratory Rate 16 Blood Pressure Pulse Oximetry 94 Oxygen Delivery Autopap Room Air 09/18/24 00:00 09/18/24 00:11 09/18/24 02:00 Temperature 98.2 F Pulse Rate 75 73 84 Respiratory Rate 22 H Blood Pressure 144/51 H Pulse Oximetry 94 Oxygen Delivery 09/18/24 02:36 09/18/24 02:46 09/18/24 04:00 Temperature Pulse Rate 109 H 105 H Respiratory Rate 18 18 Blood Pressure Pulse Oximetry Oxygen Delivery Room Air 09/18/24 04:00 09/18/24 04:10 09/18/24 05:45 Temperature 98.5 F Pulse Rate 85 84 82 Respiratory Rate 20 Blood Pressure 155/59 H Pulse Oximetry 98 Oxygen Delivery 09/18/24 08:07 09/18/24 09:00 Temperature 99.7 F H Pulse Rate 86 96 Respiratory Rate 20 Blood Pressure 182/70 H Pulse Oximetry 98 Oxygen Delivery Intake/Output Intake/Output: Intake & Output 09/15/24 09/16/24 09/17/24 09/18/24 23:59 23:59 23:59 23:59 Intake Total 3300 850 2090 1580 Output Total 400 5 650 150 Balance 2900 -1175 1440 1430 Meds/Results Medications: Active Medications Generic Name Dose Route Start Last Admin Trade Name Freq PRN Reason Stop Dose Admin Acetaminophen 650 mg 09/16/24 15:06 09/16/24 15:36 Acetaminophen 650 Mg Suppository RECTAL 650 mg Q6H PRN Administration Mild Pain (1-3) or Fever Amlodipine Besylate 10 mg 09/16/24 09:00 09/18/24 08:59 Amlodipine Besylate 10 Mg Tablet PO 10 mg DAILY KELIN Administration Artificial Tears 1 drop 09/15/24 23:37 Artificial Tears Ophth Soln 15 Ml Bottle EACH EYE QID PRN Dry Eye(S) Atorvastatin Calcium 10 mg 09/16/24 00:25 09/17/24 21:10 Atorvastatin 10 Mg Tablet PO 10 mg HS KELIN Administration Baclofen 10 mg 09/16/24 09:00 09/18/24 09:10 Baclofen 10 Mg Tablet PO 10 mg TID KELIN Administration Bisacodyl 10 mg 09/15/24 23:37 Bisacodyl 5 Mg Tablet Ec PO HS PRN Constipation Clonidine HCl 0.1 mg 09/16/24 09:00 09/18/24 09:02 Clonidine Hcl 0.1 Mg Tablet PO 0.1 mg DAILY KELIN Administration Dextrose 12.5 gm 09/15/24 12:45 Dextrose 50% 25 Gm/50 Ml Syringe IV PUSH PRN PRN Hypoglycemia Protocol Diclofenac Sodium 1 applic 09/15/24 23:37 Diclofenac Sodium 1% 100 Gm Gel (*Bkc) TOPICAL BID PRN moderate pain (scale score 5-6) Docusate Sodium 100 mg 09/15/24 23:37 Docusate Sodium 100 Mg Capsule PO DAILY PRN Constipation Fluticasone Propionate 2 spray 09/16/24 09:00 09/18/24 09:15 Fluticasone Propionate 0.05% Na Spr 16 Gm Btl (*Bkc) NASAL 2 spray DAILY KELIN Administration Furosemide 20 mg 09/16/24 09:00 09/18/24 09:01 Furosemide 20 Mg Tablet PO 20 mg BID KELIN Administration Glucagon 1 mg 09/15/24 12:45 Glucagon For Inj 1 Mg Vial IM PRN PRN Hypoglycemia Protocol Glucose 15 gm 09/15/24 12:45 Glucose Oral Gel 15 Gm Of Glucse In 37.5 Gm Tube PO PRN PRN Hypoglycemia Protocol Guaifenesin 1,200 mg 09/16/24 09:00 09/18/24 09:10 Guaifenesin 12 Hr 600 Mg Tabcr PO 1,200 mg BID KELIN Administration Hydralazine HCl 10 mg 09/16/24 09:00 09/18/24 09:01 Hydralazine 10 Mg Tablet PO 10 mg QID KELIN Administration Hydralazine HCl 10 mg 09/16/24 22:00 09/18/24 04:00 Hydralazine Hcl 20 Mg/Ml Vial IV PUSH Not Given Q8HR KELIN Hydrochlorothiazide 25 mg 09/16/24 09:00 09/18/24 08:59 Hydrochlorothiazide 25 Mg Tablet PO 25 mg QAM KELIN Administration Cefepime HCl 2 gm in 50 mls @ 100 mls/hr 09/15/24 20:00 09/18/24 06:56 Maxipime 2 Gm/Ns 50 Ml IVPB Infused Q8HR KELIN Infusion Dextrose 1,000 mls @ 100 mls/hr 09/15/24 12:45 Dextrose 5% 1,000 Ml IVPB PRN PRN Hypoglycemia Protocol Vancomycin HCl 1,250 mg in 250 mls @ 166.667 mls/hr 09/16/24 07:00 09/18/24 06:54 Vancomycin 1,250 Mg/Ns 250 Ml IVPB 166 mls/hr Q12H KELIN Administration Sodium Chloride 1,000 mls @ 100 mls/hr 09/17/24 14:25 09/18/24 04:05 Normal Saline Iv IV CONT 100 mls/hr .Q10H KELIN Administration Isosorbide Mononitrate 30 mg 09/16/24 09:00 09/18/24 09:02 Isosorbide Mononitrate 30 Mg Tab.Er.24h PO 30 mg DAILY KELIN Administration Levalbuterol HCl 1.25 mg 09/16/24 20:00 09/18/24 08:02 Levalbuterol Neb 1.25 Mg/3 Ml INHALATION Not Given Q6HRT KELIN Lidocaine 2 patch 09/16/24 09:00 09/18/24 09:11 Lidocaine 5% Patch TOPICAL 2 patch DAILY KELIN Administration Lorazepam 0.5 mg 09/15/24 23:37 Lorazepam (*Crx) 0.5 Mg Tablet PO Q6H PRN Anxiety Losartan Potassium 100 mg 09/16/24 09:00 09/18/24 08:59 Losartan Potassium 100 Mg Tablet PO 100 mg DAILY KELIN Administration Magnesium Hydroxide 30 ml 09/15/24 23:37 Magnesium Hydroxide Susp 30 Ml Udc PO DAILY PRN constipation Memantine 5 mg 09/16/24 00:25 09/18/24 09:10 Memantine 5 Mg Tablet PO 5 mg Q12HR KELIN Administration Metoprolol Tartrate 100 mg 09/16/24 00:25 09/18/24 09:00 Metoprolol Tartrate 50 Mg Tab PO 100 mg Q12HR KELIN Administration Metoprolol Tartrate 5 mg 09/17/24 06:00 09/18/24 04:00 Metoprolol Tartrate Inj 5 Mg/5 Ml Vial IV PUSH Not Given Q6HR KELIN Ondansetron HCl 4 mg 09/15/24 12:45 Ondansetron Inj 4 Mg/2 Ml Vial IV PUSH Q4H PRN Nausea Oxycodone HCl 5 mg 09/15/24 23:37 Oxycodone Hcl (*Crx) 5 Mg Tab Ir PO Q4-6H PRN Pain Rated 7-10 Pantoprazole Sodium 40 mg 09/16/24 09:00 09/18/24 09:11 Pantoprazole 40 Mg Tablet PO 40 mg DAILY KELIN Administration Polyethylene Glycol 17 gm 09/15/24 23:37 Polyethylene Glycol 3350 17 Gm Powd.Pack PO DAILY PRN Constipation Potassium Chloride 10 meq 09/16/24 09:00 09/18/24 09:02 Potassium Chloride 10 Meq Er Tablet PO 10 meq DAILY KELIN Administration Pregabalin 150 mg 09/16/24 00:25 09/18/24 09:01 Pregabalin (*Crx) 75 Mg Capsule PO 150 mg Q12HR KELIN Administration Primidone 200 mg 09/16/24 09:00 09/18/24 09:03 Primidone 50 Mg Tablet PO 200 mg BID KELIN Administration Sodium Chloride 2 spray 09/15/24 23:37 Saline 0.65% Gordo Soln 44 Ml Btl NASAL PRN PRN Congestion Vitamin B Complex 1 cap 09/16/24 09:00 09/18/24 09:10 Vitamin B Complex Capsule PO 1 cap QAM KELIN Administration Vitamin D 5,000 units 09/16/24 09:00 09/18/24 09:10 Cholecalciferol 5,000 Units Tablet PO 5,000 units DAILY KELIN Administration Vitamin E 800 unit 09/16/24 09:00 09/18/24 09:10 Vitamin E 400 Unit Capsule PO 800 unit DAILY KELIN Administration Radiology Results: ITS Impressions Head CT 09/15/24 11:48 IMPRESSION: 1. 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 No acute intracranial process. 2. Age-related changes including moderate diffuse on loss and mild scattered white matter hypoattenuation consistent with chronic small vessel ischemic disease. Chest X-Ray 09/16/24 09:53 IMPRESSION: 1. No acute cardiopulmonary disease. Labs Labs: Laboratory Results - last 24 hr 09/17/24 09/18/24 21:18 05:19 WBC 7.1 RBC 3.35 L Hgb 10.3 L Hct 32.9 L MCV 98.2 MCH 30.7 MCHC 31.3 L RDW 15.1 H Plt Count 221 MPV 10.1 Immature Gran % (Auto) 0.6 H Neut % (Auto) 62.1 Lymph % (Auto) 21.4 Lee % (Auto) 11.6 H Eos % (Auto) 3.6 Baso % (Auto) 0.7 Lymph # (Auto) 1.53 Lee # (Auto) 0.8 H Eos # (Auto) 0.3 Baso # (Auto) 0.1 Abs Immat Gran (auto) 0.04 H Absolute Neuts (auto) 4.4 Absolute Nucleated RBC 0.000 Nucleated RBC % 0.0 Sodium 135 L Potassium 3.5 Chloride 107 Carbon Dioxide 20 L Anion Gap 8 BUN 15 Creatinine 0.49 L Estim Creat Clear Calc 91 Estimated GFR > 60 Glucose 81 POC Capillary Glucose 98 Calcium 7.4 L Magnesium 2.0 Total Bilirubin 0.5 AST 62 H ALT 53 H Alkaline Phosphatase 84 Total Protein 6.0 L Albumin 2.7 L Quality VTE Prophylaxis VTE prophylaxis: mechanical ordered
[2024-09-18] MEDS: methylPREDNISolone SOD SUCC 40 MG VIAL IV PUSH ×2 (13:02→23:16)
[2024-09-18 16:17] LABS: Glucose Point of Care 174 mg/dl (65-105)
[2024-09-18 16:30] LABS: Add Urine Microscopic? YES; Appearance Urine Clear (Clear); Bacteria Urine None Seen /hpf; Bilirubin Urine Negative (Negative); Blood Urine Negative (Negative); Color Urine Yellow (Yellow); Glucose Urine UA Negative (Negative); Hyaline Casts Urine Present /lpf; Ketones Urine Negative (Negative); Leukocyte Esterase Ur Negative LEU/UL (Negative); Nitrate Urine Negative (Negative); Protein Urine Trace mg/dL (Negative); RBC Urine 0-2 /hpf (0-2); Specific Grav Ur 1.017 (1.001-1.035); Squamous Epithelial Cell Urine None Seen /hpf (Few); Urobilinogen Urine 0.2 mg/dL (<2.0); WBC Urine 0-5 /hpf (0-3); pH Urine 5.5 (5.0-9.0)
[2024-09-18] MEDS: ATORVASTATIN 10 MG TABLET PO (21:00)
[2024-09-19] VITALS (28 sets, daily range): BP systolic 128–184; BP diastolic 47–78; PULSE 65–115; RESP 16–24; TEMP 36.7–38; O2SAT 93–99
[2024-09-19] MEDS: SODIUM CHLORIDE 0.9% IV 1,000 ML 100 ML IV CONT ×2 (02:33→11:07)
[2024-09-19] MEDS: methylPREDNISolone SOD SUCC 40 MG VIAL IV PUSH ×4 (03:55→15:54)
[2024-09-19 06:58] LABS: Basophils Percent Auto 0.5 % (0.2-1.2); Eosinophils Percent Auto 0.3 % (0-4.4); Hematocrit 34.2 % (37.0-47.0); Immature Granulocyte Absolute 0.06 K/mm3 (0.00-0.031); Lymphocytes Absolute Auto 0.82 K/mm3 (0.9-3.2); Mean Corpuscular HGB Conc 32.2 g/dl (32-36); Mean Corpuscular Hemoglobin 29.8 pg (26-34); Mean Corpuscular Volume 92.7 fl (80-100); Mean Platelet Volume 10.2 fl (7.4-10.4); Monocytes Absolute Auto 0.4 K/mm3 (0.1-0.6); Monocytes Percent Auto 6.7 % (2.6-8.5); Neutrophils Absolute Auto 4.9 K/mm3 (1.3-6.7); Neutrophils Percent Auto 78.5 % (45.5-73.1); Platelet Count Result 288 k/mm3 (150-375); Red Blood Count 3.69 M/mm3 (4.2-5.4); Red Cell Distribution Width 14.4 % (11.5-14.5); White Blood Count 6.3 K/mm3 (4.5-10.0)
[2024-09-19 07:07] LABS: Alanine Aminotransferase 46 U/L (6-35); Albumin Level 3.1 g/dL (3.5-5.1); Alkaline Phosphatase 93 U/L (38-126); Anion Gap 7 mmol/L (4-12); Aspartate Amino Transferase 33 U/L (14-36); Bilirubin,Total 0.4 mg/dL (0.2-1.3); Blood Urea Nitrogen 16 mg/dL (7-17); Calcium 8.1 mg/dL (8.4-10.2); Carbon Dioxide 22 mmol/L (22-30); Chloride 105 mmol/L (98-107); Estimated CRCL calculation 84 ml/min; Estimated Glomerular Filt Rate > 60; Glucose 126 mg/dL (65-110); Magnesium 1.8 mg/dL (1.6-2.3); Potassium 4.1 mmol/L (3.4-5.0); Sodium 134 mmol/L (137-145)
--- NOTE | 2024-09-19 07:25 | P.CDI_ITS ---
CDI Query Clarification Request BMI: 33.8 Nutritional Diagnostic Statement: Please refer to the comprehensive nutrition assessment for further information. If you agree with diagnosis of Severe protein calorie malnutrition related to acute loss of appetite, as evidenced by intakes <50% needs >5 days; weight loss -7%/2 weeks. Please specify severity if known: * Mild * Moderate * Severe * Other/Unknown <Sara Mcmahon RN - Last Filed: 09/19/24 07:26> Clarified Diagnosis Clarified Diagnosis: Unknown diagnosis currently. Her intake waxes and wanes. <Keren Goode APN-Pacheco - Last Filed: 09/19/24 07:31>
--- NOTE | 2024-09-19 09:15 | P.PNIM_ITS ---
Progress Note: A&P Assessment and Plan (1) AMS (altered mental status): Qualifiers: Altered mental status type: unspecified Qualified Code(s): R41.82 - Altered mental status, unspecified Code(s): R41.82 - Altered mental status, unspecified Status: Acute Assessment and Plan: ##R/t UTI - normal baseline A/o 3 with slow speech --> monitor closely -->continue with IV ATB - Vanco - Cefepime -->stop IV fluids due to risk of overload --> patient was on Room Air all night, was to have 2 liters with CPAP at night. --> patient is on O2 now. --> repeat ABGs note improvement with O2 placement, 09/17/24: * Pt now on room air. * Continue with IV abx of Vanc and Cefepime for now. * Pts mental status improving, awake and answering questions. * MRI without contrast pending as pt is allergic to contrast. 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 * Pt appears to be dry today and remains tachycardic. * No s/s of fluid overload, so NS at 100 ml/hr ordered continuous. * Trend and monitor VS and labs. * BC NGTD * Urine Cx without any growth. 09/18/24: * Pt with decreased orientation today as she will open eyes and track, but not follow commands or answer questions, or if she does it is just a whisper. * Improvement in VS and Labs with resolution of Tachycardia. * MRI performed last evening, pending results. * Final Urine Cx negative and BC with NGTD. 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 Extensive differential including Rathke's cleft cyst, Craniopharyngioma, Pituitiary adenoma, meningioma or thrombosed aneurysm. MR with pituitary protocol with pre and post contrast views recommended to distinguish between cyst and solid lesion. This is ordered for today and will be performed. * Pre-medication protocol ordered for pt. * Neurology consulted, but as pt remains encephalopathic, suspect will need to involve NSY at tertiary center, but will await results of repeat MRI first. * Pt with fever today. CXR from yesterday without any acute findings. Urine from yesterday clear. Concern for Neurological causation. * LP ordered with diagnostic testing orders. * Continue Vanc and Cefepime at this time. * Final Urine cx negative. BC NGTD x2. (2) UTI (urinary tract infection): Qualifiers: Hematuria presence: without hematuria Urinary tract infection type: acute cystitis Qualified Code(s): N30.00 - Acute cystitis without hematuria Code(s): N39.0 - Urinary tract infection, site not specified Status: Resolved Assessment and Plan: ## history of Klebsiella pneumoniae 04/2024 - susceptible to cefepime --> continue with IV ATB - Vanco - Cefepime --> trend CBC --> follow urine culture - carr to continue at this time for accurate I&O. 09/17/24: * Continue current abx as pt is improving. * Urine culture resulted already as negative. * Will consider de-escalating abx tomorrow if pt continues to improve. 09/18/24: * Interval decline in overall physical mental status, however, improvement in labs and VS. NGTD on blood cultures. Would like to await final culture prior to de-escalating abx, therefore continue with Vancomycin and Cefepime at this time. 09/19/24: * UA clean as obtained yesterday. Urine culture without any growth. (3) Sepsis: Qualifiers: Sepsis acute organ dysfunction status: unspecified Sepsis type: sepsis due to unspecified organism Qualified Code(s): A41.9 - Sepsis, unspecified [facility] Code(s): A41.9 - Sepsis, unspecified organism Status: Acute Assessment and Plan: ## r/t UTI --> lactic 1.7 --. given IV fluid resuscitation in the emergency department --> fever control --> trend labs wbc trending down 09/17/24: * See #s 1 and 2 09/18/24: * Will recheck urine and cxr. * Neuro consulted. Consider LP. 09/19/24: * Pt with interval increase again in temperature. * Rectal tylenol ordered. * Awaiting Neuro consult * LP ordered. * MRI today of pituitary with premeds. * Repeat viral swab. (4) Tachycardia: Code(s): R00.0 - Tachycardia, unspecified Status: Resolved Assessment and Plan: - continue home medications - IV lopressor x1 given this am - IV lasix for possible overload. - O2 on per nasal canula at 2 liters, at ALL TIMES. - CPAP when sleeping and HS. 09/17/24: * Continue Metoprolol tartrate 100 mg BID. * CPAP at night. * No s/s of overload. * Continue Telemetry. * Degree of tachycardia is improving, consider consulting Cards in the AM if no improvement. * Pt appears to have dry oral mucosa. IVF at 100 ml/hr ordered. 09/18/24: * Resolved after giving IVF hydration. (5) Hypertension: Code(s): I10 - Essential (primary) hypertension Status: Acute Assessment and Plan: - continue home medications - IV lopressor x1 given this am - IV lasix for possibel overload. 09/17/24: * BP stable. Continue current meds. 09/18/24: * Running at baseline, stable, but slightly elevated. * PRN Hydralazine ordered with parameters. 09/19/24: * BP still running high. * Hydralazine is ordered for prn with parameters. * Continue to trend and monitor. (6) Acute and chronic respiratory failure: Qualifiers: Respiratory failure complication: hypoxia Qualified Code(s): J96.21 - Acute and chronic respiratory failure with hypoxia Code(s): J96.20 - Acute and chronic respiratory failure, unspecified whether with hypoxia or hypercapnia Status: Acute Assessment and Plan: ##intial ABG in ER - pH of 7.46, pCO2 33.0, PO2 67.4, bicarb 23.0, O2 94.6%. --> patient is to be on 2 L per nasal cannula at all times, patient however did not have any oxygen on at all throughout the evening. --> ABGs repeated this a.m., --PH 7.475, pCO2 35.7, PO2 73.4, bicarb 25.7, O2 95.7% --> monitor O2 sat 09/17/24: * Currently on room air and stable. * Wear 4L supplemental at HS, or preferably wear CPAP. * Monitor and trend VS. 09/18/24: * Unchanged respiratory status. * Continue to monitor. * Check CXR given interval change in mental status. 09/19/24: * Stable respiratory status. * CXR checked yesterday was negative. (7) Obstructive sleep apnea: Code(s): G47.33 - Obstructive sleep apnea (adult) (pediatric) Status: Acute Assessment and Plan: --> patient does have oxygen at 2 L at all times, --> up to 4 L at night, if not wearing CPAP. --> orders for CPAP at night and while sleeping in the hospital if tolerated 09/17/24: * Continue current plan. 09/18/24: * Continue current plan. Time Spent With Patient Time with patient: Greater than 35 minutes Subjective Date/time seen: 09/19/24 09:15 Interval history: Pt today shows some overall improvement in her level of alertness and she does softly verbalize. She states she does not know where she is, what year it is or why she is here, but did know these things two days ago. She states she doesn't feel well overall. She has MRI pituitary ordered for today for further evaluation of the mass as seen on brain MRI. Pt is noted to have spiked another fever today of 100.4. She had normal CXR and Normal UA yesterday. Will repeat viral swab today. Given her Neurological changes with mental status and fever, LP is also ordered and is pending. We are awaiting the recommendations of Dr. Moran from Neurology. Review of Systems Review of Systems: All systems reviewed & are unremarkable except as noted in HPI and below Exam Const: Other: Appears ill Eyes: General: appearance normal, both eyes and all related structures Resp: Effort & Inspection: normal respiratory effort Auscultation: diminished lung sounds Cardio: Rate: regular rate Rhythm: regular rhythm Heart sounds: no gallops, no murmurs and no rubs GI: Inspection: non-distended GI Palp: Yes Soft to palpation and No Tenderness to palpation present (GI) Auscultation: normal bowel sounds Skin: General skin exam: normal color, no rashes or lesions noted and no erythema Rashes: no rashes noted Wounds: no wounds Neuro: Speech: normal speech Motor exam (neuro): Abnormal motor strength present (Generalized weakness.) Sensory Exam: normal sensation Other: Pt attempts to speak to me today, but is confused. She speaks with a soft whisp er. Extrem: Other: LLE amputation. Pt with generalized edema to BUE. Psych: Other: Unable to assess. Objective Data Vital Signs Vital Signs: Vital Signs - 24 hr 09/18/24 10:00 09/18/24 11:20 09/18/24 12:00 Temperature 98.1 F Pulse Rate 84 60 Respiratory Rate 20 Blood Pressure 109/40 L Pulse Oximetry 96 Oxygen Delivery Room Air 09/18/24 12:00 09/18/24 14:00 09/18/24 14:05 Temperature Pulse Rate 59 L 75 77 Respiratory Rate 18 Blood Pressure Pulse Oximetry Oxygen Delivery 09/18/24 14:12 09/18/24 14:12 09/18/24 16:00 Temperature Pulse Rate 79 Respiratory Rate 18 Blood Pressure Pulse Oximetry 91 Oxygen Delivery Room Air Room Air 09/18/24 16:00 09/18/24 16:19 09/18/24 18:00 Temperature 98.4 F Pulse Rate 86 91 96 Respiratory Rate 18 Blood Pressure 147/65 H Pulse Oximetry 90 Oxygen Delivery 09/18/24 20:00 09/18/24 20:00 09/18/24 20:09 Temperature 99.3 F Pulse Rate 98 100 Respiratory Rate 18 Blood Pressure 149/48 H Pulse Oximetry 94 Oxygen Delivery Room Air 09/18/24 20:47 09/18/24 20:47 09/18/24 20:57 Temperature Pulse Rate 97 101 H 97 Respiratory Rate 18 18 Blood Pressure Pulse Oximetry 94 Oxygen Delivery Room Air 09/18/24 21:00 09/18/24 22:00 09/19/24 00:00 Temperature Pulse Rate 102 H 89 Respiratory Rate Blood Pressure Pulse Oximetry Oxygen Delivery Room Air 09/19/24 00:00 09/19/24 00:10 09/19/24 02:00 Temperature 98.8 F Pulse Rate 69 69 68 Respiratory Rate 18 Blood Pressure 129/47 L Pulse Oximetry 97 Oxygen Delivery 09/19/24 04:00 09/19/24 04:00 09/19/24 05:18 Temperature 98.7 F Pulse Rate 78 81 Respiratory Rate 20 Blood Pressure 172/58 H Pulse Oximetry 94 Oxygen Delivery Room Air 09/19/24 06:00 09/19/24 07:55 Temperature 100.4 F H Pulse Rate 74 81 Respiratory Rate 20 Blood Pressure 184/78 H Pulse Oximetry 99 Oxygen Delivery Intake/Output Intake/Output: Intake & Output 09/16/24 09/17/24 09/18/24 09/19/24 23:59 23:59 23:59 23:59 Intake Total 850 2090 3160 1411.7 Output Total 2024 650 900 700 Balance -1175 1440 2260 711.7 Meds/Results Medications: Active Medications Generic Name Dose Route Start Last Admin Trade Name Freq PRN Reason Stop Dose Admin Acetaminophen 650 mg 09/16/24 15:06 09/16/24 15:36 Acetaminophen 650 Mg Suppository RECTAL 650 mg Q6H PRN Administration Mild Pain (1-3) or Fever Amlodipine Besylate 10 mg 09/16/24 09:00 09/18/24 08:59 Amlodipine Besylate 10 Mg Tablet PO 10 mg DAILY KELIN Administration Artificial Tears 1 drop 09/15/24 23:37 Artificial Tears Ophth Soln 15 Ml Bottle EACH EYE QID PRN Dry Eye(S) Atorvastatin Calcium 10 mg 09/16/24 00:25 09/18/24 21:00 Atorvastatin 10 Mg Tablet PO 10 mg HS KELIN Administration Baclofen 10 mg 09/16/24 09:00 09/18/24 16:45 Baclofen 10 Mg Tablet PO 10 mg TID KELIN Administration Bisacodyl 10 mg 09/15/24 23:37 Bisacodyl 5 Mg Tablet Ec PO HS PRN Constipation Clonidine HCl 0.1 mg 09/16/24 09:00 09/18/24 09:02 Clonidine Hcl 0.1 Mg Tablet PO 0.1 mg DAILY KELIN Administration Dextrose 12.5 gm 09/15/24 12:45 Dextrose 50% 25 Gm/50 Ml Syringe IV PUSH PRN PRN Hypoglycemia Protocol Diclofenac Sodium 1 applic 09/15/24 23:37 Diclofenac Sodium 1% 100 Gm Gel (*Bkc) TOPICAL BID PRN moderate pain (scale score 5-6) Diphenhydramine HCl 50 mg 09/19/24 11:00 Diphenhydramine Hcl Inj 50 Mg/Ml Vial IV PUSH 09/19/24 11:01 ONCE ONE Diphenhydramine HCl 50 mg 09/19/24 11:00 Diphenhydramine Hcl Inj 50 Mg/Ml Vial IV PUSH 09/19/24 11:01 ONCE ONE Docusate Sodium 100 mg 09/15/24 23:37 Docusate Sodium 100 Mg Capsule PO DAILY PRN Constipation Fluticasone Propionate 2 spray 09/16/24 09:00 09/18/24 09:15 Fluticasone Propionate 0.05% Na Spr 16 Gm Btl (*Bkc) NASAL 2 spray DAILY KELIN Administration Furosemide 20 mg 09/16/24 09:00 09/18/24 16:45 Furosemide 20 Mg Tablet PO 20 mg BID KELIN Administration Glucagon 1 mg 09/15/24 12:45 Glucagon For Inj 1 Mg Vial IM PRN PRN Hypoglycemia Protocol Glucose 15 gm 09/15/24 12:45 Glucose Oral Gel 15 Gm Of Glucse In 37.5 Gm Tube PO PRN PRN Hypoglycemia Protocol Guaifenesin 1,200 mg 09/16/24 09:00 09/18/24 16:49 Guaifenesin 12 Hr 600 Mg Tabcr PO 1,200 mg BID KELIN Administration Hydralazine HCl 10 mg 09/16/24 09:00 09/18/24 21:00 Hydralazine 10 Mg Tablet PO 10 mg QID KELIN Administration Hydralazine HCl 10 mg 09/16/24 22:00 09/19/24 05:10 Hydralazine Hcl 20 Mg/Ml Vial IV PUSH Not Given Q8HR KELIN Hydralazine HCl 10 mg 09/18/24 10:11 Hydralazine Hcl 20 Mg/Ml Vial IV PUSH Q8H PRN Blood Pressure - High Hydrochlorothiazide 25 mg 09/16/24 09:00 09/18/24 08:59 Hydrochlorothiazide 25 Mg Tablet PO 25 mg QAM KELIN Administration Dextrose 1,000 mls @ 100 mls/hr 09/15/24 12:45 Dextrose 5% 1,000 Ml IVPB PRN PRN Hypoglycemia Protocol Sodium Chloride 1,000 mls @ 100 mls/hr 09/17/24 14:25 09/19/24 06:15 Normal Saline Iv IV CONT Not Given .Q10H KELIN Isosorbide Mononitrate 30 mg 09/16/24 09:00 09/18/24 09:02 Isosorbide Mononitrate 30 Mg Tab.Er.24h PO 30 mg DAILY KELIN Administration Levalbuterol HCl 1.25 mg 09/16/24 20:00 09/18/24 20:47 Levalbuterol Neb 1.25 Mg/3 Ml INHALATION 1.25 mg Q6HRT KELIN Administration Lidocaine 2 patch 09/16/24 09:00 09/18/24 09:11 Lidocaine 5% Patch TOPICAL 2 patch DAILY KELIN Administration Lorazepam 0.5 mg 09/15/24 23:37 Lorazepam (*Crx) 0.5 Mg Tablet PO Q6H PRN Anxiety Losartan Potassium 100 mg 09/16/24 09:00 09/18/24 08:59 Losartan Potassium 100 Mg Tablet PO 100 mg DAILY KELIN Administration Magnesium Hydroxide 30 ml 09/15/24 23:37 Magnesium Hydroxide Susp 30 Ml Udc PO DAILY PRN constipation Memantine 5 mg 09/16/24 00:25 09/18/24 21:00 Memantine 5 Mg Tablet PO 5 mg Q12HR KELIN Administration Methylprednisolone Sodium Succinate 40 mg 09/18/24 23:00 09/19/24 06:13 Methylprednisolone Sod Succ 40 Mg Vial IV PUSH 40 mg Q4H KELIN Administration Methylprednisolone Sodium Succinate 40 mg 09/19/24 11:00 Methylprednisolone Sod Succ 40 Mg Vial IV PUSH 09/19/24 11:01 ONCE ONE Metoprolol Tartrate 100 mg 09/16/24 00:25 09/18/24 21:00 Metoprolol Tartrate 50 Mg Tab PO 100 mg Q12HR KELIN Administration Metoprolol Tartrate 5 mg 09/17/24 06:00 09/19/24 05:11 Metoprolol Tartrate Inj 5 Mg/5 Ml Vial IV PUSH Not Given Q6HR KELIN Ondansetron HCl 4 mg 09/15/24 12:45 Ondansetron Inj 4 Mg/2 Ml Vial IV PUSH Q4H PRN Nausea Oxycodone HCl 5 mg 09/15/24 23:37 Oxycodone Hcl (*Crx) 5 Mg Tab Ir PO Q4-6H PRN Pain Rated 7-10 Pantoprazole Sodium 40 mg 09/16/24 09:00 09/18/24 09:11 Pantoprazole 40 Mg Tablet PO 40 mg DAILY KEILN Administration Polyethylene Glycol 17 gm 09/15/24 23:37 Polyethylene Glycol 3350 17 Gm Powd.Pack PO DAILY PRN Constipation Potassium Chloride 10 meq 09/16/24 09:00 09/18/24 09:02 Potassium Chloride 10 Meq Er Tablet PO 10 meq DAILY KELIN Administration Pregabalin 150 mg 09/16/24 00:25 09/18/24 21:00 Pregabalin (*Crx) 75 Mg Capsule PO 150 mg Q12HR KELIN Administration Primidone 200 mg 09/16/24 09:00 09/18/24 16:45 Primidone 50 Mg Tablet PO 200 mg BID KELIN Administration Sodium Chloride 2 spray 09/15/24 23:37 Saline 0.65% [place] Soln 44 Ml Btl NASAL PRN PRN Congestion Vitamin B Complex 1 cap 09/16/24 09:00 09/18/24 09:10 Vitamin B Complex Capsule PO 1 cap QAM KELIN Administration Vitamin D 5,000 units 09/16/24 09:00 09/18/24 09:10 Cholecalciferol 5,000 Units Tablet PO 5,000 units DAILY KELIN Administration Vitamin E 800 unit 09/16/24 09:00 09/18/24 09:10 Vitamin E 400 Unit Capsule PO 800 unit DAILY KELIN Administration Radiology Results: ITS Impressions Head CT 09/15/24 11:48 IMPRESSION: 1. 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 No acute intracranial process. 2. Age-related changes including moderate diffuse on loss and mild scattered white matter hypoattenuation consistent with chronic small vessel ischemic disease. Brain MRI 09/18/24 08:50 IMPRESSION: 1. Age-related changes in the brain. No acute intracranial process. 2. 1.3 x 1.2 x 0.9 cm T2 hyperintense intrasellar mass versus cystic lesion. 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 There is been no evident change in appearance of the pituitary on multiple prior CT studies dating back to thousand 17 which would argue against malignancy/metastases. Would recommend obtaining pre and postcontrast pituitary protocol MRI to distinguish solid versus cystic which would aid in narrowing the differential. Chest X-Ray 09/18/24 10:31 IMPRESSION: 1. No acute cardiopulmonary disease. Labs Labs: Laboratory Results - last 24 hr 09/18/24 09/18/24 09/19/24 15:55 16:08 06:42 WBC 6.3 RBC 3.69 L Hgb 11.0 L Hct 34.2 L MCV 92.7 D MCH 29.8 MCHC 32.2 RDW 14.4 Plt Count 288 MPV 10.2 Immature Gran % (Auto) 1.0 H Neut % (Auto) 78.5 H Lymph % (Auto) 13.0 L [place] % (Auto) 6.7 Eos % (Auto) 0.3 Baso % (Auto) 0.5 Lymph # (Auto) 0.82 L [place] # (Auto) 0.4 Eos # (Auto) 0.0 Baso # (Auto) 0.0 Abs Immat Gran (auto) 0.06 H Absolute Neuts (auto) 4.9 Absolute Nucleated RBC 0.000 Nucleated RBC % 0.0 Sodium 134 L Potassium 4.1 Chloride 105 Carbon Dioxide 22 Anion Gap 7 BUN 16 Creatinine 0.54 L Estim Creat Clear Calc 84 Estimated GFR > 60 Glucose 126 H POC Capillary Glucose 174 H Calcium 8.1 L Magnesium 1.8 Total Bilirubin 0.4 AST 33 ALT 46 H Alkaline Phosphatase 93 Total Protein 6.0 L Albumin 3.1 L Urine Color Yellow Urine Appearance Clear Urine pH 5.5 Ur Specific [place] 1.017 Urine Protein Trace Urine Glucose (UA) Negative Urine Ketones Negative Ur Blood (Man) Negative Urine Nitrate Negative Urine Bilirubin Negative Urine Urobilinogen 0.2 Leukocyte Esterase Rfl Negative Urine RBC 0-2 Urine WBC 0-5 Ur Squamous Epith Cells None seen Urine Bacteria None seen Urine Casts 11-20 Hyaline Casts Present
[2024-09-19] MEDS: LEVALBUTEROL NEB 1.25 MG/3 ML INHALATION ×3 (09:25→20:25)
[2024-09-19] MEDS: amLODIPine BESYLATE 10 MG TABLET PO (09:44)
[2024-09-19] MEDS: cloNIDine HCL 0.1 MG TABLET PO (09:44)
[2024-09-19] MEDS: hydrALAZINE 10 MG TABLET PO ×3 (09:45→20:58)
[2024-09-19] MEDS: hydroCHLOROthiazide 25 MG TABLET PO (09:45)
[2024-09-19] MEDS: FUROSEMIDE 20 MG TABLET PO ×2 (09:46→17:37)
[2024-09-19] MEDS: PREGABALIN (*CRX) 75 MG CAPSULE 150 MG PO ×2 (09:46→20:58)
[2024-09-19] MEDS: METOPROLOL TARTRATE 50 MG TAB 100 MG PO ×2 (09:46→20:57)
[2024-09-19] MEDS: ISOSORBIDE MONONITRATE 30 MG TAB.ER.24H PO (09:46)
[2024-09-19] MEDS: LOSARTAN POTASSIUM 100 MG TABLET PO (09:46)
[2024-09-19] MEDS: PRIMIDONE 50 MG TABLET 200 MG PO ×2 (09:46→17:36)
[2024-09-19] MEDS: LIDOCAINE 5% PATCH 2 PATCH TOPICAL (09:51)
[2024-09-19] MEDS: ACETAMINOPHEN 325 MG TABLET 650 MG PO (10:53)
[2024-09-19] MEDS: diphenhydrAMINE HCl INJ 50 MG/ML VIAL IV PUSH (10:54)
--- NOTE | 2024-09-19 12:42 | PC.NURSE ---
Order received for lumbar puncture. Pt disoriented and unable to sign consent. Called daughter, Martina Rodney to obtain consent. Unable to reach. Left message with no call back. Keren James NP notified. Test considered a medical emergency. Provider signed consent.
--- NOTE | 2024-09-19 13:13 | P.CONNEU_ITS ---
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 Status post fluoro guided lumbar puncture for the encephalopathy with fever to rule out the possibility of the S meningitis but all the spinal fluid studies are pending to the glucose has already been available which is 97 and her blood sugar was 126 which could be related to diabetes. 3. Months spinal fluid studies are completely available decision will be made whether she needs to be treated for any CRUDE [employer]IL [employer] infection otherwise her intermittent lethargy could be related to electrolyte imbalance. Likely candidate to have the CRUDE OIL T[employer] infection she definitely had the leukocytosis initially but the repeat WBCs have been only 7.1 and 6.3 but again CRUDE OIL TRE[employer] infection has to be ruled out. 4 considering her general condition and neurological status she is not a likely candidate for neurosurgical intervention and has to managed medically. Obviously on long-term treatment for the chronic hyponatremia. Intermittent change in mental status could also be related to her underlying mental illness that his bipolar is status. If any question arises please do not hesitate to contact me thank Consult date: 09/19/24 HPI: Celestina Ewing is a 73 year old female admitted to the hospital through the emergency room for the complaints of change in the mental status and with the information that she has been here twice for the same complaint. She has been admitted in the past for pneumonia, hyponatremia, and was [facility] just yesterday where she was found to be altered and febrile. She has chronic history of hypernatremia, bipolar disorder, chronic respiratory failure requiring home oxygen, and neurocognitive disorder with epilepsy, she has also undergone left above-knee amputation she has been taking sodium tablets and her sodium yesterday was 138 her medications included atorvastatin 10mg daily pantoprazole 40mg daily primidone 200mg twice a day, baclofen 10mg 3 times a day, amlodipine 10mg daily, memantine 5mg twice a day, metoprolol 100mg twice a day, she is taking magnesium hydroxide 30cc daily, clonidine 0.1mg daily furosemide 20mg twice a day isosorbide 30mg q.i.d. losartan 100mg daily and rivaroxaban 20mg Q 24hours. She has multiple drug allergies and as mentioned before she carries the diagnosis of chronic anemia, bipolar disorder, chronic hyponatremia, and epilepsy for which she is not on medications. She has had multiple surgeries including left [id number] amputation with subsequent replacement, she has never smoker never alcohol intaker and initial exam revealed her to be obese with BMI of 33 somnolent, left [id number] amputation but grossly nonfocal exam otherwise. 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 Review of Systems 2 Review of Systems: All systems reviewed & are unremarkable except as noted in HPI and below PMFSH Past Medical History Medical History Kidney stone Chronic anemia Chronic respiratory failure with hypoxia, on home oxygen therapy Bipolar disorder Gastroesophageal reflux disease Hyperlipidemia Hypertension Obstructive sleep apnea intolerant to CPAP Left tibial fracture Chronic hyponatremia Shingles Anxiety Depression Gastroparesis Diverticulitis Asthma Epilepsy no longer on medication Seasonal allergies Surgical History Surgical History History of left above knee amputation History of right shoulder replacement History of cholecystectomy History of left knee replacement History of hysterectomy History of open reduction and internal fixation (ORIF) procedure Left tibia and right ankle. History of appendectomy History of tonsillectomy Family History Family History Mother Suicide Depression Heart disease Hypertension Heart failure Sibling Suicide Father Diabetes mellitus Emphysema lung Social History Social History Social History: Surrogate medical decision maker: Martina Rodney, daughter. Code status: Full code. Smoking status: Never smoker Second hand tobacco smoke exposure: No Alcohol intake: never Substance use: never Substance use type: does not use Do You Feel Safe in your Home?: Yes Lack of Transportation: No Lack of Food: Never True Current Housing: I Have Housing Concerned About Future Housing: No Difficulty Paying Gas/Electric Bills: No Difficulty Paying for Meds: No Currently Unemployed: No Education: Decline to Answer Difficulty w/ Childcare or Family Care: No [place] Occupation/Education: retired Spiritual care concerns: No Agree to blood products: No Meds Home Medications and Allergies Home Medications ?Medication ?Instructions ?Recorded ?Confirmed ?Type atorvastatin 10 mg tablet 10 mg PO HS 09/09/19 09/15/24 History cholecalciferol (vitamin D3) 10 5,000 unit PO DAILY 09/09/19 09/15/24 History mcg (400 unit) tablet fluticasone propionate 50 2 spray intranasal DAILY 09/09/19 09/15/24 History mcg/actuation nasal spray,suspension pantoprazole 40 mg tablet,delayed 40 mg PO DAILY 09/09/19 09/15/24 History release primidone 50 mg tablet 200 mg PO BID 09/09/19 09/15/24 History vitamin E 268 mg (400 unit) capsule 800 unit PO DAILY 09/09/19 09/15/24 History docusate sodium 100 mg tablet 100 mg PO DAILY PRN Constipation 05/31/20 09/15/24 History spironolactone 25 mg tablet 25 mg PO DAILY 05/31/20 09/15/24 History baclofen 10 mg tablet 10 mg PO TID 02/19/21 09/15/24 History albuterol sulfate 90 mcg/actuation 1 inh inhalation DAILY PRN 04/23/24 09/15/24 History aerosol inhaler sob/wheezing amlodipine 10 mg tablet 10 mg PO DAILY 04/23/24 09/15/24 History bisacodyl 5 mg tablet,delayed 10 mg PO HS PRN Constipation 04/23/24 09/15/24 History release (Dulcolax (bisacodyl)) guaifenesin 1,200 mg tablet, 1,200 mg PO BID 04/23/24 09/15/24 History extended release 12 hr (Mucinex) memantine 5 mg tablet 5 mg PO BID 04/23/24 09/15/24 History metoprolol tartrate 100 mg tablet 100 mg PO BID 04/23/24 09/15/24 History ondansetron HCl 4 mg tablet 4 mg PO TID 04/23/24 09/15/24 History polyethylene glycol 3350 17 17 g PO DAILY PRN Constipation 04/23/24 09/15/24 History gram/dose oral powder (Miralax) sodium chloride 0.65 % nasal spray 2 spray intranasal PRN PRN 04/23/24 09/15/24 History aerosol Congestion vitamin B complex 1 tablet PO DAILY 04/23/24 09/15/24 History pregabalin 150 mg capsule (Lyrica) 150 mg PO BID #14 caps 05/04/24 09/15/24 Rx diclofenac sodium 1 % topical gel 2 g topical BID PRN moderate pain 08/06/24 09/15/24 History (Voltaren Arthritis Pain) (scale score 5-6) isosorbide mononitrate 30 mg 30 mg PO DAILY 08/06/24 09/15/24 History tablet,extended release 24 hr lidocaine 5 % topical patch 2 patch topical DAILY 08/06/24 09/15/24 History (Lidoderm) magnesium hydroxide 400 mg/5 mL 30 ml PO DAILY PRN constipation 08/06/24 09/15/24 History oral suspension (Gentle Laxative (magnesium hydroxide)) hydralazine 10 mg tablet 10 mg PO QID #30 tabs 08/14/24 09/15/24 Rx oxycodone 5 mg tablet 5 mg PO Q4-6H PRN Pain #7 tabs 08/14/24 09/15/24 Rx peg [id number] 1 1 drp EACH EYE QID PRN Dry Eye(S) 08/14/24 09/15/24 Rx %-0.2 %-0.2 % eye drops #30 mL (Artificial Tears ([id number])) clonidine HCl 0.1 mg tablet 0.1 mg PO DAILY 09/07/24 09/15/24 History furosemide 20 mg tablet (Lasix) 20 mg PO BID 09/07/24 09/15/24 History isosorbide dinitrate 30 mg tablet 30 mg PO QID 09/07/24 09/15/24 History lorazepam 0.5 mg tablet 0.5 mg PO Q6H PRN Anxiety 09/07/24 09/15/24 History losartan 100 1 tablet PO DAILY 09/07/24 09/15/24 History mg-hydrochlorothiazide 25 mg tablet potassium chloride 10 mEq 10 meq PO DAILY #7 tabs 09/14/24 09/15/24 Rx tablet,extended release (Klor-Con) Allergies Allergy/AdvReac Type Severity Reaction Status Date / Time Fish Containing Products Allergy Severe Dyspnea / Verified 04/23/24 19:11 SOB Iodinated Contrast Media Allergy Intermediate HIVES, RED Verified 04/27/24 08:14 FACE iodine Allergy Unknown Unknown Verified 04/23/24 19:11 Barbiturates Allergy Unknown Verified 04/23/24 19:11 bupivacaine Allergy Unknown Verified 04/23/24 20:51 diazepam (From Valium) Allergy Unknown Verified 04/23/24 19:11 latex Allergy Unknown Verified 04/23/24 19:11 menthol Allergy Unknown Verified 04/23/24 20:51 Sulfa (Sulfonamide Allergy Unknown Verified 04/23/24 19:11 Antibiotics) thiopental (From Pentothal) Allergy Unknown Verified 04/27/24 08:14 wool Allergy Unknown Verified 04/23/24 20:51 Vital Signs Vital Signs - 24 hr 09/18/24 14:00 09/18/24 14:05 09/18/24 14:12 Temperature Pulse Rate 75 77 Respiratory Rate 18 Blood Pressure Pulse Oximetry 91 Oxygen Delivery Room Air 09/18/24 14:12 09/18/24 16:00 09/18/24 16:00 Temperature Pulse Rate 79 86 Respiratory Rate 18 Blood Pressure Pulse Oximetry Oxygen Delivery Room Air 09/18/24 16:19 09/18/24 18:00 09/18/24 20:00 Temperature 36.9 C Pulse Rate 91 96 Respiratory Rate 18 Blood Pressure 147/65 H Pulse Oximetry 90 Oxygen Delivery Room Air 09/18/24 20:00 09/18/24 20:09 09/18/24 20:47 Temperature 37.4 C Pulse Rate 98 100 97 Respiratory Rate 18 18 Blood Pressure 149/48 H Pulse Oximetry 94 Oxygen Delivery 09/18/24 20:47 09/18/24 20:57 09/18/24 21:00 Temperature Pulse Rate 101 H 97 102 H Respiratory Rate 18 Blood Pressure Pulse Oximetry 94 Oxygen Delivery Room Air 09/18/24 22:00 09/19/24 00:00 09/19/24 00:00 Temperature Pulse Rate 89 69 Respiratory Rate Blood Pressure Pulse Oximetry Oxygen Delivery Room Air 09/19/24 00:10 09/19/24 02:00 09/19/24 04:00 Temperature 37.1 C Pulse Rate 69 68 Respiratory Rate 18 Blood Pressure 129/47 L Pulse Oximetry 97 Oxygen Delivery Room Air 09/19/24 04:00 09/19/24 05:18 09/19/24 06:00 Temperature 37.1 C Pulse Rate 78 81 74 Respiratory Rate 20 Blood Pressure 172/58 H Pulse Oximetry 94 Oxygen Delivery 09/19/24 07:55 09/19/24 09:26 09/19/24 09:26 Temperature 38.0 C H Pulse Rate 81 105 H 106 H Respiratory Rate 20 20 Blood Pressure 184/78 H Pulse Oximetry 99 96 Oxygen Delivery Room Air 09/19/24 09:38 09/19/24 09:46 09/19/24 11:56 Temperature 36.7 C Pulse Rate 110 H 115 H 93 Respiratory Rate 24 H 20 Blood Pressure 145/54 H Pulse Oximetry 95 Oxygen Delivery Exam 2 Narrative: Patient laying in bed awake easily arousable but does not follow the verbal commands appropriately, head normocephalic with no bruit, neck supple with no meningeal signs, and no cervical bruit, pupils round regular, feels the vision unreliable to be documented on finger confrontation but she responded to threat stimuli, there was no spontaneous nystagmus, facial grimace was symmetrical, tongue was in the oral cavity with no obvious fasciculation, motor examination revealed her to have no spontaneous movements of the upper or lower extremities , though the left lower extremity is amputated, reflexes were extremely sluggish, and right plantar response was neutral, she did not respond to the touch stimuli, and cerebellar function could not be reliably checked. Results Labs 09/19/24 06:42 09/19/24 06:42 Labs: Short CBC 09/19/24 Range/Units 06:42 WBC 6.3 (4.5-10.0) K/mm3 Hgb 11.0 L (12.0-15.0) g/dL Hct 34.2 L (37.0-47.0) % Plt Count 288 (150-375) k/mm3 BMP 09/19/24 06:42 Sodium 134 L Potassium 4.1 Chloride 105 Carbon Dioxide 22 BUN 16 Creatinine 0.54 L Glucose 126 H Calcium 8.1 L Liver Function 09/19/24 Range/Units 06:42 Total Bilirubin 0.4 (0.2-1.3) mg/dL AST 33 (14-36) U/L ALT 46 H (6-35) U/L Alkaline Phosphatase 93 (38-126) U/L Albumin 3.1 L (3.5-5.1) g/dL Urine 09/18/24 Range/Units 15:55 Urine Color Yellow (Yellow) Urine Appearance Clear (Clear) Urine pH 5.5 (5.0-9.0) Ur Specific Hanna 1.017 (1.001-1.035) Urine Protein Trace (Negative) mg/dL Urine Glucose (UA) Negative (Negative) mg/dL
[2024-09-19 13:53] LABS: Glucose CSF 97 mg/dL (40-70); Total Protein CSF 51 mg/dL (12-60)
[2024-09-19 14:54] LABS: Appearance CSF Clear (Clear); CSF source CSF; Color CSF Colorless (Colorless); Lymphocytes CSF 76 % (40-80); Macrophages CSF 0; Monocytes CSF 24 % (15-45); Neutrophils CSF 0 % (0-6); Nucleated Cell CSF 1 /uL (0-5); Red Blood Cell CSF 0 (0-2)
[2024-09-19] MEDS: ACYCLOVIR SODIUM IVPB 800 MG in DEXTROSE 5% IN WATER 250 ML 266 MG IVPB ×2 (15:53→21:34)
[2024-09-19] MEDS: BACLOFEN 10 MG TABLET PO (17:37)
[2024-09-19] MEDS: CEFEPIME 2 GM/NS 50 ML 2 GM/50 ML BAG IVPB (17:38)
[2024-09-19] MEDS: VITAMIN E 400 UNIT CAPSULE 800 UNIT PO (17:48)
[2024-09-19] MEDS: guaiFENesin 12 HR 600 MG TABCR 1200 MG PO (17:49)
[2024-09-19] MEDS: PANTOPRAZOLE 40 MG TABLET PO (17:49)
[2024-09-19] MEDS: VITAMIN B COMPLEX CAPSULE 1 CAP PO (17:49)
[2024-09-19] MEDS: CHOLECALCIFEROL 5,000 UNITS TABLET 5000 UNITS PO (17:49)
[2024-09-19] MEDS: POTASSIUM CHLORIDE 10 MEQ ER TABLET PO (17:49)
[2024-09-19] MEDS: AMPICILLIN 2 GM/NS 100 ML 2 GM/100 ML BAG IVPB ×2 (18:14→20:47)
[2024-09-19 18:44] LABS: Influenza A QL RT-PCR Negative (Negative); Influenza B QL RT-PCR Negative (Negative); RSV RNA, RT-PCR Negative (Negative); SARS-CoV-2 RNA PCR Negative (Negative)
[2024-09-19] MEDS: VANCOMYCIN 1,250 MG/NS 250 ML 1,250 MG/250 ML BAG 166.67 MG IVPB (18:46)
[2024-09-19] MEDS: ATORVASTATIN 10 MG TABLET PO (20:58)
[2024-09-19] MEDS: MEMANTINE 5 MG TABLET PO (20:58)
[2024-09-19] MEDS: VANCOMYCIN 1,000 MG/NS 250 ML 1,000 MG/250 ML BAG 250 MG IVPB (21:31)
[2024-09-20] VITALS (30 sets, daily range): BP systolic 124–169; BP diastolic 51–63; PULSE 54–98; RESP 9–20; TEMP 36.3–36.9; O2SAT 93–100
[2024-09-20] MEDS: CEFEPIME 2 GM/NS 50 ML 2 GM/50 ML BAG IVPB ×4 (01:27→23:07)
[2024-09-20] MEDS: AMPICILLIN 2 GM/NS 100 ML 2 GM/100 ML BAG IVPB ×6 (01:28→20:01)
[2024-09-20] MEDS: LEVALBUTEROL NEB 1.25 MG/3 ML INHALATION ×4 (02:16→19:45)
[2024-09-20] MEDS: ACYCLOVIR SODIUM IVPB 800 MG in DEXTROSE 5% IN WATER 250 ML 266 MG IVPB ×3 (05:42→21:46)
[2024-09-20 05:49] LABS: Basophils Percent Auto 0.6 % (0.2-1.2); Eosinophils Absolute Auto 0.2 K/mm3 (0-0.3); Eosinophils Percent Auto 2.4 % (0-4.4); Hematocrit 31.5 % (37.0-47.0); Hemoglobin 10.1 g/dL (12.0-15.0); Immature Granulocyte Absolute 0.07 K/mm3 (0.00-0.031); Immature Granulocyte Percent A 1.1 % (0-0.5); Lymphocytes Absolute Auto 2.27 K/mm3 (0.9-3.2); Lymphocytes Percent Auto 34.7 % (18.3-44.2); Mean Corpuscular HGB Conc 32.1 g/dl (32-36); Mean Corpuscular Volume 93.5 fl (80-100); Mean Platelet Volume 10.5 fl (7.4-10.4); Monocytes Absolute Auto 1.1 K/mm3 (0.1-0.6); Monocytes Percent Auto 16.4 % (2.6-8.5); Neutrophils Absolute Auto 2.9 K/mm3 (1.3-6.7); Neutrophils Percent Auto 44.8 % (45.5-73.1); Platelet Count Result 274 k/mm3 (150-375); Red Blood Count 3.37 M/mm3 (4.2-5.4); Red Cell Distribution Width 14.5 % (11.5-14.5); White Blood Count 6.5 K/mm3 (4.5-10.0)
[2024-09-20 05:55] LABS: Alanine Aminotransferase 31 U/L (6-35); Albumin Level 2.9 g/dL (3.5-5.1); Alkaline Phosphatase 77 U/L (38-126); Anion Gap 4 mmol/L (4-12); Aspartate Amino Transferase 25 U/L (14-36); Bilirubin,Total 0.4 mg/dL (0.2-1.3); Blood Urea Nitrogen 15 mg/dL (7-17); Calcium 8.1 mg/dL (8.4-10.2); Carbon Dioxide 28 mmol/L (22-30); Chloride 101 mmol/L (98-107); Estimated CRCL calculation 69 ml/min; Estimated Glomerular Filt Rate > 60; Glucose 88 mg/dL (65-110); Magnesium 1.7 mg/dL (1.6-2.3); Potassium 3.8 mmol/L (3.4-5.0); Sodium 133 mmol/L (137-145)
[2024-09-20] MEDS: VANCOMYCIN 1,250 MG/NS 250 ML 1,250 MG/250 ML BAG 166.67 MG IVPB (08:40)
[2024-09-20] MEDS: MEMANTINE 5 MG TABLET PO ×2 (09:42→20:09)
[2024-09-20] MEDS: METOPROLOL TARTRATE 50 MG TAB 100 MG PO ×2 (09:42→20:09)
[2024-09-20] MEDS: PRIMIDONE 50 MG TABLET 200 MG PO ×2 (09:45→18:16)
[2024-09-20] MEDS: hydroCHLOROthiazide 25 MG TABLET PO (09:45)
[2024-09-20] MEDS: POTASSIUM CHLORIDE 10 MEQ ER TABLET PO (09:45)
[2024-09-20] MEDS: FUROSEMIDE 20 MG TABLET PO ×2 (09:45→18:16)
[2024-09-20] MEDS: hydrALAZINE 10 MG TABLET PO ×4 (09:45→20:09)
[2024-09-20] MEDS: amLODIPine BESYLATE 10 MG TABLET PO (09:45)
[2024-09-20] MEDS: ISOSORBIDE MONONITRATE 30 MG TAB.ER.24H PO (09:45)
[2024-09-20] MEDS: LOSARTAN POTASSIUM 100 MG TABLET PO (09:46)
[2024-09-20] MEDS: PREGABALIN (*CRX) 75 MG CAPSULE 150 MG PO ×2 (09:46→20:08)
[2024-09-20] MEDS: cloNIDine HCL 0.1 MG TABLET PO (09:47)
[2024-09-20] MEDS: FLUTICASONE PROPIONATE 0.05% NA SPR 16 GM BTL (*BKC) 2 SPRAY NASAL (09:55)
[2024-09-20] MEDS: BACLOFEN 10 MG TABLET PO ×2 (14:00→18:16)
--- NOTE | 2024-09-20 16:52 | P.PNIM_ITS ---
Progress Note: A&P Assessment and Plan (1) AMS (altered mental status): Code(s): R41.82 - Altered mental status, unspecified Status: Acute Assessment and Plan: Patient presents with altered mental status. She has a normal baseline A/o [address] speech[address] Head CT on 09/15 in the ER showed old cerebellar infarcts but note mentioned on July CT. Brain MRI showing age-related changes in the brain but no acute intracranial process. 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 Patient presented with fevers. LP performed 09/19 showing no RBCs and 1 WBCs with mostly lymphocytes. Glucose 97 and protein 51. Viral and baceterial meningitis unlikely but she was on abx prior to LP being performed. Continue IV abx and anti-viral until cx and HSV PCR known. (2) UTI (urinary tract infection): Qualifiers: Hematuria presence: without hematuria Urinary tract infection type: acute cystitis Qualified Code(s): N30.00 - Acute cystitis without hematuria Code(s): N39.0 - Urinary tract infection, site not specified Status: Resolved Assessment and Plan: UA is consistent with UTI. UCx collected. 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 Abx started. BCx NGTD. UCx negaitve. UTI ruled out. (3) Sepsis: Qualifiers: Sepsis acute organ dysfunction status: unspecified Sepsis type: sepsis due to unspecified organism Qualified Code(s): A41.9 - Sepsis, unspecified organism Code(s): A41.9 - Sepsis, unspecified organism Status: Acute Assessment and Plan: Noted on admission with fevers, AMS and elevated white count. UTI has been ruled out. Blood cultures negative. Chest x-ray was clear on admission. Continue antibiotics for now with plans for deescalating once culture results are known. (4) Tachycardia: Code(s): R00.0 - Tachycardia, unspecified Status: Resolved Assessment and Plan: Probably related to above. Heart rate better controlled. (5) Hypertension: Code(s): I10 - Essential (primary) hypertension Status: Acute Assessment and Plan: Patient's blood pressure was reviewed on 09/20 Blood pressure remains reasonably well controlled Will continue to monitor (6) Acute and chronic respiratory failure: Qualifiers: Respiratory failure complication: hypoxia Qualified Code(s): J96.21 - Acute and chronic respiratory failure with hypoxia Code(s): J96.20 - Acute and chronic respiratory failure, unspecified whether with hypoxia or hypercapnia Status: Acute Assessment and Plan: ABG in ER - pH of 7.46, pCO2 33.0, PO2 67.4, bicarb 23.0, O2 94.6%. Patient presumably wears oxygen at the facility but has been weaned to room air here Continue CPAP at night and with naps. (7) Obstructive sleep apnea: Code(s): G47.33 - Obstructive sleep apnea (adult) (pediatric) Status: Acute Assessment and Plan: Continue CPAP at night and with naps. Plan DVT prophylaxis -Lovenox Code status -full Subjective Date/time seen: 09/20/24 16:52 Interval history: 73yo female with hx of chronic hyponatremia, anemia, Bipolar disorder, Chronic resp failure on home oxygen, GERD, epilepsy, and neurocognitive disorder who was originally discharged from [facility] with pneumonia, that presented back to the Emergency department with weakness, fever and altered mental status. Assuming care. Chart reviewed. Patient is alert but confused unable to provide history. Review of Systems Review of Systems: ROS unobtainable: Yes unobtainable due to mental status Exam Narrative: AF 97.6 143/51 89 20 95% ra Gen - NARD Chest -lungs clear anteriorly CV - RRR S1/S2. Telemetry showing no alarms. Abd - Soft, positive bowel sounds. Nontender. -fully secured draining clear yellow urine. Ext - No right pedal edema. Left [id number] amputation. Neuro -patient is awake. She tracks. Does not follow commands. Good tone and is able to hold her arms up for short period time. Psych -unable to assess Skin - Warm and dry Objective Data Vital Signs Vital Signs: Vital Signs - 24 hr 09/19/24 18:00 09/19/24 20:00 09/19/24 20:00 Temperature Pulse Rate 68 80 Respiratory Rate Blood Pressure Pulse Oximetry Oxygen Delivery Room Air Oxygen Flow Rate 09/19/24 20:20 09/19/24 20:28 09/19/24 20:28 Temperature 98.0 F Pulse Rate 92 89 Respiratory Rate 20 16 Blood Pressure 144/48 H Pulse Oximetry 98 94 Oxygen Delivery Room Air Oxygen Flow Rate 09/19/24 20:57 09/19/24 22:00 09/19/24 23:20 Temperature Pulse Rate 78 79 81 Respiratory Rate Blood Pressure Pulse Oximetry Oxygen Delivery Oxygen Flow Rate 09/20/24 00:00 09/20/24 00:00 09/20/24 00:06 Temperature 98.1 F Pulse Rate 68 82 Respiratory Rate 20 Blood Pressure 158/61 H Pulse Oximetry 98 98 Oxygen Delivery CPAP Oxygen Flow Rate 2 09/20/24 02:00 09/20/24 02:16 09/20/24 02:16 Temperature Pulse Rate 64 63 63 Respiratory Rate 9 L 9 L Blood Pressure Pulse Oximetry 94 Oxygen Delivery Autopap Oxygen Flow Rate 09/20/24 02:27 09/20/24 03:16 09/20/24 04:00 Temperature 97.5 F L Pulse Rate 62 67 Respiratory Rate 12 20 Blood Pressure 151/58 H Pulse Oximetry 98 98 Oxygen Delivery CPAP Oxygen Flow Rate 2 09/20/24 04:00 09/20/24 06:00 09/20/24 06:23 Temperature Pulse Rate 67 72 76 Respiratory Rate Blood Pressure Pulse Oximetry Oxygen Delivery Oxygen Flow Rate 09/20/24 07:45 09/20/24 08:00 09/20/24 08:00 Temperature 97.4 F L Pulse Rate 85 72 Respiratory Rate 18 Blood Pressure 169/56 H Pulse Oximetry 100 Oxygen Delivery Room Air Oxygen Flow Rate 09/20/24 08:22 09/20/24 08:22 09/20/24 08:31 Temperature Pulse Rate 80 80 Respiratory Rate 14 20 Blood Pressure Pulse Oximetry 93 Oxygen Delivery Room Air Oxygen Flow Rate 09/20/24 09:42 09/20/24 10:00 09/20/24 12:00 Temperature 98.4 F Pulse Rate 98 68 84 Respiratory Rate 20 Blood Pressure 151/56 H Pulse Oximetry 93 Oxygen Delivery Oxygen Flow Rate 09/20/24 12:00 09/20/24 13:12 09/20/24 13:21 Temperature Pulse Rate 72 72 Respiratory Rate 14 14 Blood Pressure Pulse Oximetry Oxygen Delivery Room Air Oxygen Flow Rate 09/20/24 15:59 Temperature 97.6 F Pulse Rate 89 Respiratory Rate 20 Blood Pressure 143/51 H Pulse Oximetry 95 Oxygen Delivery Oxygen Flow Rate Intake/Output Intake/Output: Intake & Output 0209/18/24 09/19/24 09/20/24 23:59 23:59 23:59 23:59 Intake Total 2090 3160 3050.4 730 Output Total 618 037 6391 2100 Balance 1440 2260 1600.4 -1370 Meds/Results Medications: Active Medications Generic Name Dose Route Start Last Admin Trade Name Freq PRN Reason Stop Dose Admin Acetaminophen 650 mg 09/19/24 09:14 Acetaminophen 650 Mg Suppository RECTAL Q6H PRN Mild Pain (1-3) or Fever Acetaminophen 650 mg 09/19/24 10:07 09/19/24 10:53 Acetaminophen 325 Mg Tablet PO 650 mg Q6H PRN Administration Mild Pain (1-3) or Fever Amlodipine Besylate 10 mg 09/16/24 09:00 09/20/24 09:45 Amlodipine Besylate 10 Mg Tablet PO 10 mg DAILY KELIN Administration Artificial Tears 1 drop 09/15/24 23:37 Artificial Tears Ophth Soln 15 Ml Bottle EACH EYE QID PRN Dry Eye(S) Atorvastatin Calcium 10 mg 09/16/24 00:25 09/19/24 20:58 Atorvastatin 10 Mg Tablet PO 10 mg HS KELIN Administration Baclofen 10 mg 09/16/24 09:00 09/20/24 09:55 Baclofen 10 Mg Tablet PO Not Given TID KELIN Bisacodyl 10 mg 09/15/24 23:37 Bisacodyl 5 Mg Tablet Ec PO HS PRN Constipation Clonidine HCl 0.1 mg 09/16/24 09:00 09/20/24 09:47 Clonidine Hcl 0.1 Mg Tablet PO 0.1 mg DAILY KELIN Administration Dextrose 12.5 gm 09/15/24 12:45 Dextrose 50% 25 Gm/50 Ml Syringe IV PUSH PRN PRN Hypoglycemia Protocol Diclofenac Sodium 1 applic 09/15/24 23:37 Diclofenac Sodium 1% 100 Gm Gel (*Bkc) TOPICAL BID PRN moderate pain (scale score 5-6) Docusate Sodium 100 mg 09/15/24 23:37 Docusate Sodium 100 Mg Capsule PO DAILY PRN Constipation Fluticasone Propionate 2 spray 09/16/24 09:00 09/20/24 09:55 Fluticasone Propionate 0.05% Na Spr 16 Gm Btl (*Bkc) NASAL 2 spray DAILY KELIN Administration Furosemide 20 mg 09/16/24 09:00 09/20/24 09:45 Furosemide 20 Mg Tablet PO 20 mg BID KELIN Administration Glucagon 1 mg 09/15/24 12:45 Glucagon For Inj 1 Mg Vial IM PRN PRN Hypoglycemia Protocol Glucose 15 gm 09/15/24 12:45 Glucose Oral Gel 15 Gm Of Glucse In 37.5 Gm Tube PO PRN PRN Hypoglycemia Protocol Guaifenesin 1,200 mg 09/16/24 09:00 09/20/24 09:55 Guaifenesin 12 Hr 600 Mg Tabcr PO Not Given BID KELIN Hydralazine HCl 10 mg 09/16/24 09:00 09/20/24 09:45 Hydralazine 10 Mg Tablet PO 10 mg QID KELIN Administration Hydralazine HCl 10 mg 09/18/24 10:11 Hydralazine Hcl 20 Mg/Ml Vial IV PUSH Q8H PRN Blood Pressure - High Hydrochlorothiazide 25 mg 09/16/24 09:00 09/20/24 09:45 Hydrochlorothiazide 25 Mg Tablet PO 25 mg QAM KELIN Administration Dextrose 1,000 mls @ 100 mls/hr 09/15/24 12:45 Dextrose 5% 1,000 Ml IVPB PRN PRN Hypoglycemia Protocol Acyclovir Sodium 800 mg/ 266 mls @ 266 mls/hr 09/19/24 15:00 09/20/24 05:42 Dextrose IVPB 10/03/24 23:59 266 mls/hr Q8HR KELIN Administration Ampicillin Sodium 2 gm in 100 mls @ 200 mls/hr 09/19/24 17:00 09/20/24 08:41 Ampicillin 2 Gm/Ns 100 Ml IVPB 200 mls/hr Q4H KELIN Administration Cefepime HCl 2 gm in 50 mls @ 100 mls/hr 09/19/24 16:00 09/20/24 09:30 Maxipime 2 Gm/Ns 50 Ml IVPB 100 mls/hr Q8H KELIN Administration Vancomycin HCl 1,250 mg in 250 mls @ 166.667 mls/hr 09/20/24 08:00 09/20/24 08:40 Vancomycin 1,250 Mg/Ns 250 Ml IVPB 166.67 mls/hr Q12H KELIN Administration Isosorbide Mononitrate 30 mg 09/16/24 09:00 09/20/24 09:45 Isosorbide Mononitrate 30 Mg Tab.Er.24h PO 30 mg DAILY KELIN Administration Levalbuterol HCl 1.25 mg 09/16/24 20:00 09/20/24 13:10 Levalbuterol Neb 1.25 Mg/3 Ml INHALATION 1.25 mg Q6HRT KELIN Administration Lidocaine 2 patch 09/16/24 09:00 09/19/24 09:51 Lidocaine 5% Patch TOPICAL 2 patch DAILY KELIN Administration Lorazepam 0.5 mg 09/15/24 23:37 Lorazepam (*Crx) 0.5 Mg Tablet PO Q6H PRN Anxiety Losartan Potassium 100 mg 09/16/24 09:00 09/20/24 09:46 Losartan Potassium 100 Mg Tablet PO 100 mg DAILY KELIN Administration Magnesium Hydroxide 30 ml 09/15/24 23:37 Magnesium Hydroxide Susp 30 Ml Udc PO DAILY PRN constipation Memantine 5 mg 09/16/24 00:25 09/20/24 09:42 Memantine 5 Mg Tablet PO 5 mg Q12HR KELIN Administration Metoprolol Tartrate 100 mg 09/16/24 00:25 09/20/24 09:42 Metoprolol Tartrate 50 Mg Tab PO 100 mg Q12HR KELIN Administration Ondansetron HCl 4 mg 09/15/24 12:45 Ondansetron Inj 4 Mg/2 Ml Vial IV PUSH Q4H PRN Nausea Oxycodone HCl 5 mg 09/15/24 23:37 Oxycodone Hcl (*Crx) 5 Mg Tab Ir PO Q4-6H PRN Pain Rated 7-10 Pantoprazole Sodium 40 mg 09/16/24 09:00 09/20/24 09:54 Pantoprazole 40 Mg Tablet PO Not Given DAILY [facility] Polyethylene Glycol 17 gm 09/15/24 23:37 Polyethylene Glycol 3350 17 Gm Powd.Pack PO DAILY PRN Constipation Potassium Chloride 10 meq 09/16/24 09:00 09/20/24 09:45 Potassium Chloride 10 Meq Er Tablet PO 10 meq DAILY KELIN Administration Pregabalin 150 mg 09/16/24 00:25 09/20/24 09:46 Pregabalin (*Crx) 75 Mg Capsule PO 150 mg Q12HR KELIN Administration Primidone 200 mg 09/16/24 09:00 09/20/24 09:45 Primidone 50 Mg Tablet PO 200 mg BID [facility] Administration Sodium Chloride 2 spray 09/15/24 23:37 Saline 0.65% Gordo Soln 44 Ml Btl NASAL PRN PRN Congestion Vitamin B Complex 1 cap 09/16/24 09:00 09/20/24 09:54 Vitamin B Complex Capsule PO Not Given QAM [facility] Vitamin D 5,000 units 09/16/24 09:00 09/20/24 09:55 Cholecalciferol 5,000 Units Tablet PO Not Given DAILY KELIN Vitamin E 800 unit 09/16/24 09:00 09/20/24 09:52 Vitamin E 400 Unit Capsule PO Not Given DAILY [facility] Radiology Results: ITS Impressions Head CT 09/15/24 11:48 IMPRESSION: 1. 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 No acute intracranial process. 2. Age-related changes including moderate diffuse on loss and mild scattered white matter hypoattenuation consistent with chronic small vessel ischemic disease. Brain MRI 09/18/24 08:50 IMPRESSION: 1. Age-related changes in the brain. No acute intracranial process. 2. 1.3 x 1.2 x 0.9 cm T2 hyperintense intrasellar mass versus cystic lesion. 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 There is been no evident change in appearance of the pituitary on multiple prior CT studies dating back to thousand 17 which would argue against malignancy/metastases. Would recommend obtaining pre and postcontrast pituitary protocol MRI to distinguish solid versus cystic which would aid in narrowing the differential. Chest X-Ray 09/18/24 10:31 IMPRESSION: 1. No acute cardiopulmonary disease. Sella Turcica MRI 09/19/24 12:56 IMPRESSION: 1. 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 2. 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 Lumbar Puncture Fluoroscopy 09/19/24 14:00 IMPRESSION: 1. Successful fluoro-guided lumbar puncture. Labs Labs: Laboratory Results - last 24 hr 09/19/24 09/20/24 18:03 04:37 WBC 6.5 RBC 3.37 L Hgb 10.1 L Hct 31.5 L MCV 93.5 MCH 30.0 MCHC 32.1 RDW 14.5 Plt Count 274 MPV 10.5 H Immature Gran % (Auto) 1.1 H Neut % (Auto) 44.8 L Lymph % (Auto) 34.7 Smyth % (Auto) 16.4 H Eos % (Auto) 2.4 Baso % (Auto) 0.6 Lymph # (Auto) 2.27 Smyth # (Auto) 1.1 H Eos # (Auto) 0.2 Baso # (Auto) 0.0 Abs Immat Gran (auto) 0.07 H Absolute Neuts (auto) 2.9 Absolute Nucleated RBC 0.000 Nucleated RBC % 0.0 Sodium 133 L Potassium 3.8 Chloride 101 Carbon Dioxide 28 Anion Gap 4 BUN 15 Creatinine 0.67 L Estim Creat Clear Calc 69 Estimated GFR > 60 Glucose 88 Calcium 8.1 L Magnesium 1.7 Total Bilirubin 0.4 AST 25 ALT 31 Alkaline Phosphatase 77 Total Protein 6.0 L Albumin 2.9 L Influenza A (RT-PCR) Negative Influenza B (RT-PCR) Negative RSV (RT-PCR) Negative SARS-CoV-2 RNA (RT-PCR) Negative
[2024-09-20] MEDS: ATORVASTATIN 10 MG TABLET PO (20:09)
[2024-09-20 20:21] LABS: Vancomycin Trough 18.8 ug/mL (10.0-20.0)
[2024-09-20] MEDS: oxyCODONE HCL (*CRX) 5 MG TAB IR PO (23:09)
[2024-09-21] VITALS (26 sets, daily range): BP systolic 139–159; BP diastolic 52–64; PULSE 69–113; RESP 14–22; TEMP 36.4–37.2; O2SAT 91–100
[2024-09-21] MEDS: AMPICILLIN 2 GM/NS 100 ML 2 GM/100 ML BAG IVPB ×6 (01:29→22:00)
[2024-09-21] MEDS: LEVALBUTEROL NEB 1.25 MG/3 ML INHALATION ×4 (01:51→20:30)
[2024-09-21] MEDS: VANCOMYCIN 1,250 MG/NS 250 ML 1,250 MG/250 ML BAG 166.67 MG IVPB ×2 (02:05→20:29)
[2024-09-21 05:45] LABS: Basophils Absolute Auto 0.1 K/mm3 (0.0-0.1); Basophils Percent Auto 0.8 % (0.2-1.2); Eosinophils Absolute Auto 0.2 K/mm3 (0-0.3); Eosinophils Percent Auto 2.7 % (0-4.4); Hematocrit 31.7 % (37.0-47.0); Hemoglobin 10.6 g/dL (12.0-15.0); Immature Granulocyte Absolute 0.07 K/mm3 (0.00-0.031); Immature Granulocyte Percent A 0.9 % (0-0.5); Lymphocytes Absolute Auto 2.03 K/mm3 (0.9-3.2); Lymphocytes Percent Auto 27.5 % (18.3-44.2); Mean Corpuscular HGB Conc 33.4 g/dl (32-36); Mean Corpuscular Hemoglobin 30.3 pg (26-34); Mean Corpuscular Volume 90.6 fl (80-100); Mean Platelet Volume 10.6 fl (7.4-10.4); Monocytes Absolute Auto 1.1 K/mm3 (0.1-0.6); Neutrophils Absolute Auto 3.9 K/mm3 (1.3-6.7); Neutrophils Percent Auto 53.1 % (45.5-73.1); Platelet Count Result 270 k/mm3 (150-375); Red Cell Distribution Width 14.2 % (11.5-14.5); White Blood Count 7.4 K/mm3 (4.5-10.0)
[2024-09-21] MEDS: ACYCLOVIR SODIUM IVPB 800 MG in DEXTROSE 5% IN WATER 250 ML 266 MG IVPB ×3 (06:07→22:43)
[2024-09-21 06:09] LABS: Alanine Aminotransferase 34 U/L (6-35); Albumin Level 2.9 g/dL (3.5-5.1); Alkaline Phosphatase 85 U/L (38-126); Anion Gap 6 mmol/L (4-12); Aspartate Amino Transferase 29 U/L (14-36); Bilirubin,Total 0.4 mg/dL (0.2-1.3); Blood Urea Nitrogen 16 mg/dL (7-17); Calcium 8.4 mg/dL (8.4-10.2); Carbon Dioxide 30 mmol/L (22-30); Chloride 95 mmol/L (98-107); Estimated CRCL calculation 72 ml/min; Estimated Glomerular Filt Rate > 60; Glucose 97 mg/dL (65-110); Magnesium 1.6 mg/dL (1.6-2.3); Potassium 3.5 mmol/L (3.4-5.0); Sodium 131 mmol/L (137-145)
[2024-09-21] MEDS: CEFEPIME 2 GM/NS 50 ML 2 GM/50 ML BAG IVPB ×3 (08:06→23:47)
[2024-09-21] MEDS: amLODIPine BESYLATE 10 MG TABLET PO (10:56)
[2024-09-21] MEDS: LOSARTAN POTASSIUM 100 MG TABLET PO (10:57)
[2024-09-21] MEDS: guaiFENesin 12 HR 600 MG TABCR 1200 MG PO ×2 (10:57→19:08)
[2024-09-21] MEDS: PRIMIDONE 50 MG TABLET 200 MG PO ×2 (10:57→19:07)
[2024-09-21] MEDS: VITAMIN B COMPLEX CAPSULE 1 CAP PO (10:57)
[2024-09-21] MEDS: PANTOPRAZOLE 40 MG TABLET PO (10:58)
[2024-09-21] MEDS: METOPROLOL TARTRATE 50 MG TAB 100 MG PO ×2 (10:58→20:35)
[2024-09-21] MEDS: POTASSIUM CHLORIDE 10 MEQ ER TABLET PO (10:58)
[2024-09-21] MEDS: hydrALAZINE 10 MG TABLET PO ×4 (10:59→20:35)
[2024-09-21] MEDS: PREGABALIN (*CRX) 75 MG CAPSULE 150 MG PO ×2 (10:59→20:34)
[2024-09-21] MEDS: hydroCHLOROthiazide 25 MG TABLET PO (10:59)
[2024-09-21] MEDS: ISOSORBIDE MONONITRATE 30 MG TAB.ER.24H PO (10:59)
[2024-09-21] MEDS: BACLOFEN 10 MG TABLET PO ×3 (10:59→19:08)
[2024-09-21] MEDS: CHOLECALCIFEROL 5,000 UNITS TABLET 5000 UNITS PO (10:59)
[2024-09-21] MEDS: FUROSEMIDE 20 MG TABLET PO ×2 (11:00→19:08)
[2024-09-21] MEDS: VITAMIN E 400 UNIT CAPSULE 800 UNIT PO (11:00)
[2024-09-21] MEDS: MEMANTINE 5 MG TABLET PO ×2 (11:00→20:34)
--- NOTE | 2024-09-21 11:51 | PM.IMPN ---
Progress Note: A&P Assessment and Plan (1) AMS (altered mental status): Code(s): R41.82 - Altered mental status, unspecified Status: Acute Assessment and Plan: Patient presents with altered mental status. She has a normal baseline AOx3 with slow speech. Head CT on 09/15 in the ER showed old cerebellar infarcts but note mentioned on July CT. Brain MRI showing age-related changes in the brain but no acute intracranial process. 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 Patient presented with fevers on 09/15. LP performed 09/19 showing no RBCs and 1 WBCs with mostly lymphocytes. Gram stain showing rare WBC and no organisms. Glucose 97 and protein 51. Viral and bacterial meningitis unlikely but she was on abx prior to LP being performed. Consider also related to polypharmacy. Continue IV abx and anti-viral until cx and HSV PCR known. Stop clonidine and oxycodone. (2) Sepsis: Qualifiers: Sepsis acute organ dysfunction status: unspecified Sepsis type: sepsis due to unspecified organism Qualified Code(s): A41.9 - Sepsis, unspecified organism Code(s): A41.9 - Sepsis, unspecified organism Status: Acute Assessment and Plan: Noted on admission with fevers, AMS and elevated white count. UTI has been ruled out. Blood cultures negative. Chest x-ray was clear on admission and repeat CXR clear on 09/18. Continue antibiotics for now with plans for deescalating once culture results are known. (3) Tachycardia: Code(s): R00.0 - Tachycardia, unspecified Status: Resolved Assessment and Plan: Probably related to above. Heart rate better controlled. No alarms by tele. Okay to stop tele. Okay to move to medical floor (4) Hypertension: Code(s): I10 - Essential (primary) hypertension Status: Acute Assessment and Plan: Patient's blood pressure was reviewed on 09/21 Blood pressure remains reasonably well controlled Will continue to monitor (5) Acute and chronic respiratory failure: Qualifiers: Respiratory failure complication: hypoxia Qualified Code(s): J96.21 - Acute and chronic respiratory failure with hypoxia Code(s): J96.20 - Acute and chronic respiratory failure, unspecified whether with hypoxia or hypercapnia Status: Acute Assessment and Plan: ABG in ER - pH of 7.46, pCO2 33.0, PO2 67.4, bicarb 23.0, O2 94.6%. Patient presumably wears oxygen at the facility but has been weaned to room air here Continue CPAP at night and with naps. (6) Obstructive sleep apnea: Code(s): G47.33 - Obstructive sleep apnea (adult) (pediatric) Status: Acute Assessment and Plan: Continue CPAP at night and with naps. (7) UTI (urinary tract infection): Qualifiers: Hematuria presence: without hematuria Urinary tract infection type: acute cystitis Qualified Code(s): N30.00 - Acute cystitis without hematuria Code(s): N39.0 - Urinary tract infection, site not specified Status: Resolved Assessment and Plan: UA is consistent with UTI. UCx collected. 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 Abx started. BCx NGTD. UCx negaitve. UTI ruled out. Plan DVT prophylaxis -Lovenox Code status -full Subjective Date/time seen: 09/21/24 11:51 Interval history: 73yo female with hx of chronic hyponatremia, anemia, Bipolar disorder, Chronic resp failure on home oxygen, GERD, epilepsy, and neurocognitive disorder who was originally discharged from [facility] with pneumonia, that presented back to the Emergency department with weakness, fever and altered mental status. Patient is alert but confused unable to provide history. Review of Systems Review of Systems: ROS unobtainable: Yes unobtainable due to mental status Exam Narrative: AF 98.2 145/52 113 14 100% ra Gen - NARD Chest -chest clear to quiet respirations. CV - RRR S1/S2 with a II/ systolic murmur left sternal border. Telemetry showing no alarms. Abd - Soft, positive bowel sounds. Nontender. -fully secured draining clear yellow urine. Ext - No right pedal edema. Left [id number] amputation. Neuro -patient is awake. She tracks. Does not follow commands. Psych -unable to assess Skin - Warm and dry Objective Data Vital Signs Vital Signs: Vital Signs - 24 hr 09/20/24 12:00 09/20/24 12:00 09/20/24 12:00 Temperature 98.4 F Pulse Rate 84 91 Respiratory Rate 20 Blood Pressure 151/56 H Pulse Oximetry 93 Oxygen Delivery Room Air Oxygen Flow Rate 09/20/24 13:12 09/20/24 13:21 09/20/24 14:00 Temperature Pulse Rate 72 72 89 Respiratory Rate 14 14 Blood Pressure Pulse Oximetry Oxygen Delivery Oxygen Flow Rate 09/20/24 15:59 09/20/24 16:00 09/20/24 16:00 Temperature 97.6 F Pulse Rate 89 89 87 Respiratory Rate 20 20 Blood Pressure 143/51 H Pulse Oximetry 95 95 Oxygen Delivery Room Air Oxygen Flow Rate 09/20/24 17:34 09/20/24 19:46 09/20/24 19:49 Temperature Pulse Rate 79 88 Respiratory Rate 15 Blood Pressure Pulse Oximetry 95 Oxygen Delivery Room Air Oxygen Flow Rate 09/20/24 19:53 09/20/24 20:00 09/20/24 20:00 Temperature 97.9 F Pulse Rate 87 96 Respiratory Rate 15 16 Blood Pressure 142/59 H Pulse Oximetry 94 Oxygen Delivery Room Air Oxygen Flow Rate 09/20/24 20:00 09/20/24 20:09 09/20/24 22:00 Temperature Pulse Rate 93 94 79 Respiratory Rate Blood Pressure Pulse Oximetry Oxygen Delivery Oxygen Flow Rate 09/20/24 23:00 09/20/24 23:49 09/21/24 00:00 Temperature 98.2 F Pulse Rate 74 54 L Respiratory Rate 12 20 Blood Pressure 124/63 Pulse Oximetry 94 97 97 Oxygen Delivery Autopap CPAP Oxygen Flow Rate 2 09/21/24 00:00 09/21/24 01:53 09/21/24 01:55 Temperature Pulse Rate 69 74 74 Respiratory Rate 15 14 Blood Pressure Pulse Oximetry 94 Oxygen Delivery Autopap Oxygen Flow Rate 09/21/24 01:59 09/21/24 02:00 09/21/24 03:47 Temperature 98.5 F Pulse Rate 72 72 84 Respiratory Rate 14 20 Blood Pressure 140/57 L Pulse Oximetry 99 Oxygen Delivery Oxygen Flow Rate 09/21/24 04:00 09/21/24 04:00 09/21/24 06:00 Temperature Pulse Rate 79 85 Respiratory Rate Blood Pressure Pulse Oximetry 99 Oxygen Delivery CPAP Oxygen Flow Rate 2 09/21/24 07:24 09/21/24 07:24 09/21/24 07:35 Temperature 98.2 F Pulse Rate 105 H 99 Respiratory Rate 14 18 Blood Pressure 145/52 H Pulse Oximetry 91 100 Oxygen Delivery Room Air Oxygen Flow Rate 09/21/24 07:45 09/21/24 10:58 Temperature Pulse Rate 110 H 113 H Respiratory Rate 14 Blood Pressure Pulse Oximetry Oxygen Delivery Oxygen Flow Rate Intake/Output Intake/Output: Intake & Output 09/18/24 09/19/24 09/20/24 09/21/24 23:59 23:59 23:59 23:59 Intake Total 3160 3050.4 2328 560 Output Total 900 1450 3300 1350 Balance 2260 1600.4 -972 -790 Meds/Results Medications: Active Medications Generic Name Dose Route Start Last Admin Trade Name Freq PRN Reason Stop Dose Admin Acetaminophen 650 mg 09/19/24 09:14 Acetaminophen 650 Mg Suppository RECTAL Q6H PRN Mild Pain (1-3) or Fever Acetaminophen 650 mg 09/19/24 10:07 09/19/24 10:53 Acetaminophen 325 Mg Tablet PO 650 mg Q6H PRN Administration Mild Pain (1-3) or Fever Amlodipine Besylate 10 mg 09/16/24 09:00 09/21/24 10:56 Amlodipine Besylate 10 Mg Tablet PO 10 mg DAILY KELIN Administration Artificial Tears 1 drop 09/15/24 23:37 Artificial Tears Ophth Soln 15 Ml Bottle EACH EYE QID PRN Dry Eye(S) Atorvastatin Calcium 10 mg 09/16/24 00:25 09/20/24 20:09 Atorvastatin 10 Mg Tablet PO 10 mg HS KELIN Administration Baclofen 10 mg 09/16/24 09:00 09/21/24 10:59 Baclofen 10 Mg Tablet PO 10 mg TID KELIN Administration Bisacodyl 10 mg 09/15/24 23:37 Bisacodyl 5 Mg Tablet Ec PO HS PRN Constipation Dextrose 12.5 gm 09/15/24 12:45 Dextrose 50% 25 Gm/50 Ml Syringe IV PUSH PRN PRN Hypoglycemia Protocol Diclofenac Sodium 1 applic 09/15/24 23:37 Diclofenac Sodium 1% 100 Gm Gel (*Bkc) TOPICAL BID PRN moderate pain (scale score 5-6) Docusate Sodium 100 mg 09/15/24 23:37 Docusate Sodium 100 Mg Capsule PO DAILY PRN Constipation Enoxaparin Sodium 40 mg 09/21/24 09:00 Enoxaparin 40 Mg/0.4 Ml Syringe SUB-Q DAILY KELIN Fluticasone Propionate 2 spray 09/16/24 09:00 09/20/24 09:55 Fluticasone Propionate 0.05% Na Spr 16 Gm Btl (*Bkc) NASAL 2 spray DAILY KELIN Administration Furosemide 20 mg 09/16/24 09:00 09/21/24 11:00 Furosemide 20 Mg Tablet PO 20 mg BID KELIN Administration Glucagon 1 mg 09/15/24 12:45 Glucagon For Inj 1 Mg Vial IM PRN PRN Hypoglycemia Protocol Glucose 15 gm 09/15/24 12:45 Glucose Oral Gel 15 Gm Of Glucse In 37.5 Gm Tube PO PRN PRN Hypoglycemia Protocol Guaifenesin 1,200 mg 09/16/24 09:00 09/21/24 10:57 Guaifenesin 12 Hr 600 Mg Tabcr PO 1,200 mg BID KELIN Administration Hydralazine HCl 10 mg 09/16/24 09:00 09/21/24 10:59 Hydralazine 10 Mg Tablet PO 10 mg QID KELIN Administration Hydralazine HCl 10 mg 09/18/24 10:11 Hydralazine Hcl 20 Mg/Ml Vial IV PUSH Q8H PRN Blood Pressure - High Hydrochlorothiazide 25 mg 09/16/24 09:00 09/21/24 10:59 Hydrochlorothiazide 25 Mg Tablet PO 25 mg QAM KELIN Administration Dextrose 1,000 mls @ 100 mls/hr 09/15/24 12:45 Dextrose 5% 1,000 Ml IVPB PRN PRN Hypoglycemia Protocol Acyclovir Sodium 800 mg/ 266 mls @ 266 mls/hr 09/19/24 15:00 09/21/24 06:07 Dextrose IVPB 10/03/24 23:59 266 mls/hr Q8HR KELIN Administration Ampicillin Sodium 2 gm in 100 mls @ 200 mls/hr 09/19/24 17:00 09/21/24 09:00 Ampicillin 2 Gm/Ns 100 Ml IVPB 200 mls/hr Q4H KELIN Administration Cefepime HCl 2 gm in 50 mls @ 100 mls/hr 09/19/24 16:00 09/21/24 08:06 Maxipime 2 Gm/Ns 50 Ml IVPB 100 mls/hr Q8H KELIN Administration Vancomycin HCl 1,250 mg in 250 mls @ 166.667 mls/hr 09/21/24 02:00 09/21/24 02:05 Vancomycin 1,250 Mg/Ns 250 Ml IVPB 166.67 mls/hr Q18H KELIN Administration Isosorbide Mononitrate 30 mg 09/16/24 09:00 09/21/24 10:59 Isosorbide Mononitrate 30 Mg Tab.Er.24h PO 30 mg DAILY KELIN Administration Levalbuterol HCl 1.25 mg 09/16/24 20:00 09/21/24 07:24 Levalbuterol Neb 1.25 Mg/3 Ml INHALATION 1.25 mg Q6HRT KELIN Administration Lidocaine 2 patch 09/16/24 09:00 09/20/24 17:24 Lidocaine 5% Patch TOPICAL Not Given DAILY KELIN Lorazepam 0.5 mg 09/15/24 23:37 Lorazepam (*Crx) 0.5 Mg Tablet PO Q6H PRN Anxiety Losartan Potassium 100 mg 09/16/24 09:00 09/21/24 10:57 Losartan Potassium 100 Mg Tablet PO 100 mg DAILY KELIN Administration Magnesium Hydroxide 30 ml 09/15/24 23:37 Magnesium Hydroxide Susp 30 Ml Udc PO DAILY PRN constipation Memantine 5 mg 09/16/24 00:25 09/21/24 11:00 Memantine 5 Mg Tablet PO 5 mg Q12HR KELIN Administration Metoprolol Tartrate 100 mg 09/16/24 00:25 09/21/24 10:58 Metoprolol Tartrate 50 Mg Tab PO 100 mg Q12HR KELIN Administration Ondansetron HCl 4 mg 09/15/24 12:45 Ondansetron Inj 4 Mg/2 Ml Vial IV PUSH Q4H PRN Nausea Pantoprazole Sodium 40 mg 09/16/24 09:00 09/21/24 10:58 Pantoprazole 40 Mg Tablet PO 40 mg DAILY KELIN Administration Polyethylene Glycol 17 gm 09/15/24 23:37 Polyethylene Glycol 3350 17 Gm Powd.Pack PO DAILY PRN Constipation Potassium Chloride 10 meq 09/16/24 09:00 09/21/24 10:58 Potassium Chloride 10 Meq Er Tablet PO 10 meq DAILY KELIN Administration Pregabalin 150 mg 09/16/24 00:25 09/21/24 10:59 Pregabalin (*Crx) 75 Mg Capsule PO 150 mg Q12HR KELIN Administration Primidone 200 mg 09/16/24 09:00 09/21/24 10:57 Primidone 50 Mg Tablet PO 200 mg BID KELIN Administration Sodium Chloride 2 spray 09/15/24 23:37 Saline 0.65% Gordo Soln 44 Ml Btl NASAL PRN PRN Congestion Vitamin B Complex 1 cap 09/16/24 09:00 09/21/24 10:57 Vitamin B Complex Capsule PO 1 cap QAM KELIN Administration Vitamin D 5,000 units 09/16/24 09:00 09/21/24 10:59 Cholecalciferol 5,000 Units Tablet PO 5,000 units DAILY KELIN Administration Vitamin E 800 unit 09/16/24 09:00 09/21/24 11:00 Vitamin E 400 Unit Capsule PO 800 unit DAILY KELIN Administration Radiology Results: ITS Impressions Head CT 09/15/24 11:48 IMPRESSION: 1. 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 No acute intracranial process. 2. Age-related changes including moderate diffuse on loss and mild scattered white matter hypoattenuation consistent with chronic small vessel ischemic disease. Brain MRI 09/18/24 08:50 IMPRESSION: 1. Age-related changes in the brain. No acute intracranial process. 2. 1.3 x 1.2 x 0.9 cm T2 hyperintense intrasellar mass versus cystic lesion. 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 There is been no evident change in appearance of the pituitary on multiple prior CT studies dating back to thousand 17 which would argue against malignancy/metastases. Would recommend obtaining pre and postcontrast pituitary protocol MRI to distinguish solid versus cystic which would aid in narrowing the differential. Chest X-Ray 09/18/24 10:31 IMPRESSION: 1. No acute cardiopulmonary disease. Sella Turcica MRI 09/19/24 12:56 IMPRESSION: 1. 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 2. 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 Lumbar Puncture Fluoroscopy 09/19/24 14:00 IMPRESSION: 1. Successful fluoro-guided lumbar puncture. Labs Labs: Laboratory Results - last 24 hr 09/20/24 09/21/24 19:46 04:54 WBC 7.4 RBC 3.50 L Hgb 10.6 L Hct 31.7 L MCV 90.6 MCH 30.3 MCHC 33.4 RDW 14.2 Plt Count 270 MPV 10.6 H Immature Gran % (Auto) 0.9 H Neut % (Auto) 53.1 Lymph % (Auto) 27.5 Parmer % (Auto) 15.0 H Eos % (Auto) 2.7 Baso % (Auto) 0.8 Lymph # (Auto) 2.03 Parmer # (Auto) 1.1 H Eos # (Auto) 0.2 Baso # (Auto) 0.1 Abs Immat Gran (auto) 0.07 H Absolute Neuts (auto) 3.9 Absolute Nucleated RBC 0.000 Nucleated RBC % 0.0 Sodium 131 L Potassium 3.5 Chloride 95 L Carbon Dioxide 30 Anion Gap 6 BUN 16 Creatinine 0.64 L Estim Creat Clear Calc 72 Estimated GFR > 60 Glucose 97 Calcium 8.4 Magnesium 1.6 Total Bilirubin 0.4 AST 29 ALT 34 Alkaline Phosphatase 85 Total Protein 6.0 L Albumin 2.9 L Vancomycin Trough 18.8
[2024-09-21 17:29] LABS: West Nile Virus, IgM <0.90 index
[2024-09-21] MEDS: FLUTICASONE PROPIONATE 0.05% NA SPR 16 GM BTL (*BKC) 2 SPRAY NASAL (19:05)
[2024-09-21] MEDS: ENOXAPARIN 40 MG/0.4 ML SYRINGE SUB-Q (19:05)
[2024-09-21] MEDS: LIDOCAINE 5% PATCH 2 PATCH TOPICAL (19:06)
[2024-09-21] MEDS: ACETAMINOPHEN 325 MG TABLET 650 MG PO (20:33)
[2024-09-21] MEDS: ATORVASTATIN 10 MG TABLET PO (20:35)
[2024-09-22] VITALS (13 sets, daily range): BP systolic 143–154; BP diastolic 53–83; PULSE 79–101; RESP 18; TEMP 36.4–36.8; O2SAT 99–100
[2024-09-22] MEDS: AMPICILLIN 2 GM/NS 100 ML 2 GM/100 ML BAG IVPB ×6 (00:23→20:53)
[2024-09-22 04:24] LABS: Basophils Absolute Auto 0.1 K/mm3 (0.0-0.1); Basophils Percent Auto 0.9 % (0.2-1.2); Eosinophils Absolute Auto 0.3 K/mm3 (0-0.3); Hematocrit 31.7 % (37.0-47.0); Hemoglobin 10.5 g/dL (12.0-15.0); Immature Granulocyte Absolute 0.15 K/mm3 (0.00-0.031); Immature Granulocyte Percent A 1.7 % (0-0.5); Lymphocytes Absolute Auto 2.44 K/mm3 (0.9-3.2); Lymphocytes Percent Auto 26.8 % (18.3-44.2); Mean Corpuscular HGB Conc 33.1 g/dl (32-36); Mean Corpuscular Hemoglobin 30.1 pg (26-34); Mean Corpuscular Volume 90.8 fl (80-100); Mean Platelet Volume 10.4 fl (7.4-10.4); Monocytes Absolute Auto 1.3 K/mm3 (0.1-0.6); Monocytes Percent Auto 14.2 % (2.6-8.5); Neutrophils Absolute Auto 4.9 K/mm3 (1.3-6.7); Neutrophils Percent Auto 53.4 % (45.5-73.1); Platelet Count Result 304 k/mm3 (150-375); Red Blood Count 3.49 M/mm3 (4.2-5.4); Red Cell Distribution Width 14.3 % (11.5-14.5); White Blood Count 9.1 K/mm3 (4.5-10.0)
[2024-09-22 04:38] LABS: Alanine Aminotransferase 29 U/L (6-35); Albumin Level 2.9 g/dL (3.5-5.1); Alkaline Phosphatase 80 U/L (38-126); Anion Gap 4 mmol/L (4-12); Aspartate Amino Transferase 22 U/L (14-36); Bilirubin,Total 0.4 mg/dL (0.2-1.3); Blood Urea Nitrogen 19 mg/dL (7-17); Calcium 8.3 mg/dL (8.4-10.2); Carbon Dioxide 33 mmol/L (22-30); Chloride 93 mmol/L (98-107); Estimated CRCL calculation 75 ml/min; Estimated Glomerular Filt Rate > 60; Glucose 102 mg/dL (65-110); Magnesium 1.6 mg/dL (1.6-2.3); Phosphorus 4.1 mg/dL (2.5-4.5); Potassium 3.8 mmol/L (3.4-5.0); Sodium 130 mmol/L (137-145)
[2024-09-22 05:43] LABS: Folic Acid 8.4 ng/mL (2.76->20)
[2024-09-22] MEDS: ACYCLOVIR SODIUM IVPB 800 MG in DEXTROSE 5% IN WATER 250 ML 266 MG IVPB (06:40)
[2024-09-22] MEDS: guaiFENesin 12 HR 600 MG TABCR 1200 MG PO ×2 (08:39→17:24)
[2024-09-22] MEDS: MEMANTINE 5 MG TABLET PO ×2 (08:39→20:54)
[2024-09-22] MEDS: ISOSORBIDE MONONITRATE 30 MG TAB.ER.24H PO (08:39)
[2024-09-22] MEDS: FUROSEMIDE 20 MG TABLET PO ×2 (08:39→17:24)
[2024-09-22] MEDS: PREGABALIN (*CRX) 75 MG CAPSULE 150 MG PO ×2 (08:39→20:53)
[2024-09-22] MEDS: CHOLECALCIFEROL 5,000 UNITS TABLET 5000 UNITS PO (08:40)
[2024-09-22] MEDS: METOPROLOL TARTRATE 50 MG TAB 100 MG PO ×2 (08:40→20:54)
[2024-09-22] MEDS: amLODIPine BESYLATE 10 MG TABLET PO (08:40)
[2024-09-22] MEDS: POTASSIUM CHLORIDE 10 MEQ ER TABLET PO (08:41)
[2024-09-22] MEDS: VITAMIN B COMPLEX CAPSULE 1 CAP PO (08:41)
[2024-09-22] MEDS: PANTOPRAZOLE 40 MG TABLET PO (08:42)
[2024-09-22] MEDS: VITAMIN E 400 UNIT CAPSULE 800 UNIT PO (08:43)
[2024-09-22] MEDS: FLUTICASONE PROPIONATE 0.05% NA SPR 16 GM BTL (*BKC) 2 SPRAY NASAL (08:43)
[2024-09-22] MEDS: LOSARTAN POTASSIUM 100 MG TABLET PO (08:43)
[2024-09-22] MEDS: ENOXAPARIN 40 MG/0.4 ML SYRINGE SUB-Q (08:43)
[2024-09-22] MEDS: CEFEPIME 2 GM/NS 50 ML 2 GM/50 ML BAG IVPB ×3 (08:44→23:33)
[2024-09-22] MEDS: PRIMIDONE 50 MG TABLET 100 MG PO ×3 (10:15→17:24)
[2024-09-22] MEDS: hydrALAZINE HCL 25 MG TABLET PO ×3 (10:15→23:38)
[2024-09-22] MEDS: BACLOFEN 5 MG TABLET PO ×3 (10:16→17:24)
[2024-09-22] MEDS: MAGNESIUM SULF 2 GM/WATER 50ML 2 GM/50 ML BAG IVPB (10:50)
--- NOTE | 2024-09-22 10:54 | PCNFU ---
Nutrition Follow-Up Complete: Severe protein calorie malnutrition related to acute loss of appetite, as evidenced by intakes <50% needs >5 days; weight loss -7%/2 weeks. Goal:Improve PO intake to at least 50% meals and supplements Pt not progressing towards goal. Pt current nutrition is Heart healthy, Ensure Enlive TID(350kcals, 20g protein), nutrition ice cream cups TID(300kcals, 9g protein). Nutrition recommendation: continue with current plan of care, encourage po intake Last recorded weight is 86.5 kg. Bowel Motility: +BM 09/22 Labs Reviewed: Hgb:10.5, HCT:31.7, NA:130, BUN:19, Cr:0.6 Meds Noted: Vit D, Vit E, B complex, lasix, KCL Skin: no pressure Additional Notes: Pt continues on a heart healthy diet, intake remains poor, supplements in place. Pt confused. Encourage po intake of meals and supplements. Monitoring intakes, weights, labs, output, meds, chewing ability, supplement tolerance, plan of care Follow up in 5 days
[2024-09-22] MEDS: LIDOCAINE 5% PATCH 2 PATCH TOPICAL (13:00)
[2024-09-22] MEDS: ACETAMINOPHEN 325 MG TABLET 650 MG PO (13:16)
[2024-09-22] MEDS: hydrALAZINE 10 MG TABLET PO (13:26)
[2024-09-22 14:04] LABS: Vancomycin Trough 17.8 ug/mL (10.0-20.0)
--- NOTE | 2024-09-22 14:04 | PC.NURSE ---
On 09/22/24, the student, [Diane Guidry], provided care and completed [facility] documentation on this patient. I have reviewed the student's documentation and agree with the findings.
[2024-09-22] MEDS: VANCOMYCIN 1,250 MG/NS 250 ML 1,250 MG/250 ML BAG 125 MG IVPB (14:51)
[2024-09-22] MEDS: ACYCLOVIR SODIUM IVPB 800 MG in DEXTROSE 5% IN WATER 250 ML 125 MG IVPB (14:52)
[2024-09-22 16:13] LABS: Herpes Simplex Type 1 DNA PCR Not Detected (Not Detected); Herpes Simplex Type 2 DNA PCR Not Detected (Not Detected)
[2024-09-22 16:19] LABS: Epstein Barr Virus DNA PCR Not Detected (Not Detected); Source Epstein Barr Virus *CSF
--- NOTE | 2024-09-22 16:26 | PM.IMPN ---
Progress Note: A&P Assessment and Plan (1) AMS (altered mental status): Code(s): R41.82 - Altered mental status, unspecified Status: Acute Assessment and Plan: Patient presents with altered mental status. She has a normal baseline AOx3 with slow speech. 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 Brain MRI showing age-related changes in the brain but no acute intracranial process. 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 Patient presented with fevers on 09/15. LP performed 09/19 showing no RBCs and 1 WBCs with mostly lymphocytes. Gram stain showing rare WBC and no organisms. Glucose 97 and protein 51. Viral and bacterial meningitis unlikely but she was on abx prior to LP being performed. Consider also related to polypharmacy. Symptoms better today. Continue IV abx and anti-viral until cx and HSV PCR known. Continue to adjust medications to improve her mental status. Start PT/OT/ST (2) Sepsis: Qualifiers: Sepsis acute organ dysfunction status: unspecified Sepsis type: sepsis due to unspecified organism Qualified Code(s): A41.9 - Sepsis, unspecified organism Code(s): A41.9 - Sepsis, unspecified organism Status: Acute Assessment and Plan: Noted on admission with fevers, AMS and elevated white count. UTI has been ruled out. Blood cultures negative. Chest x-ray was clear on admission and repeat CXR clear on 09/18. Continue antibiotics for now with plans for deescalating once culture results are known. (3) Tachycardia: Code(s): R00.0 - Tachycardia, unspecified Status: Resolved Assessment and Plan: Probably related to above. Heart rate better controlled. No alarms by tele. Okay to stop tele and move to medical floor (4) Hypertension: Code(s): I10 - Essential (primary) hypertension Status: Acute Assessment and Plan: Patient's blood pressure was reviewed on 09/22 Blood pressure remains reasonably well controlled. Medications adjusted. Will continue to monitor (5) Acute and chronic respiratory failure: Qualifiers: Respiratory failure complication: hypoxia Qualified Code(s): J96.21 - Acute and chronic respiratory failure with hypoxia Code(s): J96.20 - Acute and chronic respiratory failure, unspecified whether with hypoxia or hypercapnia Status: Acute Assessment and Plan: ABG in ER - pH of 7.46, pCO2 33.0, PO2 67.4, bicarb 23.0, O2 94.6%. Patient presumably wears oxygen at the facility but has been weaned to room air here Continue CPAP at night and with naps. (6) Obstructive sleep apnea: Code(s): G47.33 - Obstructive sleep apnea (adult) (pediatric) Status: Acute Assessment and Plan: Continue CPAP at night and with naps. (7) UTI (urinary tract infection): Qualifiers: Hematuria presence: without hematuria Urinary tract infection type: acute cystitis Qualified Code(s): N30.00 - Acute cystitis without hematuria Code(s): N39.0 - Urinary tract infection, site not specified Status: Resolved Assessment and Plan: UA is consistent with UTI. UCx collected. 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 Abx started. BCx and UCx negative. UTI ruled out. Remove Delarosa once patient more mobile. Plan DVT prophylaxis -Lovenox Code status -full Subjective Date/time seen: 09/22/24 16:26 Interval history: 73yo female with hx of chronic hyponatremia, anemia, Bipolar disorder, Chronic resp failure on home oxygen, GERD, epilepsy, and neurocognitive disorder who was originally discharged from [facility] with pneumonia, that presented back to the Emergency department with weakness, fever and altered mental status. Patient is alert and more oriented today. She talks in a whisper. Complains of back pain. No Cp or abd pain. eating okay. Exam Narrative: AF 98.3 143/53 79 18 99% ra Gen - NARD Chest -chest clear anteriorly CV - RRR S1/S2. Telemetry showing no alarms. Abd - Soft, NT/ND, +BS. - Delarosa secured draining clear yellow urine. Ext - No right pedal edema. Left [id number] amputation. Neuro -patient is awake and alert. Oriented x4. whispering voice. Psych - flat affect Skin - Warm and dry Objective Data Vital Signs Vital Signs: Vital Signs - 24 hr 09/21/24 18:00 09/21/24 20:00 09/21/24 20:00 Temperature 98.6 F Pulse Rate 86 107 H Respiratory Rate 22 H Blood Pressure 159/63 H Pulse Oximetry 95 Oxygen Delivery Room Air 09/21/24 20:00 09/21/24 20:30 09/21/24 20:30 Temperature Pulse Rate 105 H 86 Respiratory Rate 16 Blood Pressure Pulse Oximetry 93 Oxygen Delivery Room Air 09/21/24 20:35 09/21/24 20:40 09/21/24 23:58 Temperature 97.6 F Pulse Rate 106 H 89 82 Respiratory Rate 16 20 Blood Pressure 145/55 H Pulse Oximetry 92 Oxygen Delivery 09/22/24 00:00 09/22/24 04:00 09/22/24 07:48 Temperature 97.6 F Pulse Rate 80 81 91 Respiratory Rate 18 Blood Pressure 154/83 H Pulse Oximetry 100 Oxygen Delivery 09/22/24 08:00 09/22/24 08:40 09/22/24 13:20 Temperature Pulse Rate 81 90 88 Respiratory Rate Blood Pressure 148/59 H Pulse Oximetry Oxygen Delivery 09/22/24 15:50 Temperature 98.3 F Pulse Rate 79 Respiratory Rate 18 Blood Pressure 143/53 H Pulse Oximetry 99 Oxygen Delivery Intake/Output Intake/Output: Intake & Output 09/19/24 09/20/24 09/21/24 09/22/24 23:59 23:59 23:59 23:59 Intake Total 3050.4 2328 2751.3 1267 Output Total 1450 3300 2600 800 Balance 1600.4 -972 151.3 467 Meds/Results Medications: Active Medications Generic Name Dose Route Start Last Admin Trade Name Freq PRN Reason Stop Dose Admin Acetaminophen 650 mg 09/19/24 09:14 Acetaminophen 650 Mg Suppository RECTAL Q6H PRN Mild Pain (1-3) or Fever Acetaminophen 650 mg 09/19/24 10:07 09/22/24 13:16 Acetaminophen 325 Mg Tablet PO 650 mg Q6H PRN Administration Mild Pain (1-3) or Fever Amlodipine Besylate 10 mg 09/16/24 09:00 09/22/24 08:40 Amlodipine Besylate 10 Mg Tablet PO 10 mg DAILY KELIN Administration Artificial Tears 1 drop 09/15/24 23:37 Artificial Tears Ophth Soln 15 Ml Bottle EACH EYE QID PRN Dry Eye(S) Atorvastatin Calcium 10 mg 09/16/24 00:25 09/21/24 20:35 Atorvastatin 10 Mg Tablet PO 10 mg HS KELIN Administration Baclofen 5 mg 09/22/24 09:00 09/22/24 13:26 Baclofen 5 Mg Tablet PO 5 mg TID KELIN Administration Dextrose 12.5 gm 09/15/24 12:45 Dextrose 50% 25 Gm/50 Ml Syringe IV PUSH PRN PRN Hypoglycemia Protocol Diclofenac Sodium 1 applic 09/15/24 23:37 Diclofenac Sodium 1% 100 Gm Gel (*Bkc) TOPICAL BID PRN moderate pain (scale score 5-6) Enoxaparin Sodium 40 mg 09/21/24 09:00 09/22/24 08:43 Enoxaparin 40 Mg/0.4 Ml Syringe SUB-Q 40 mg DAILY KELIN Administration Fluticasone Propionate 2 spray 09/16/24 09:00 09/22/24 08:43 Fluticasone Propionate 0.05% Na Spr 16 Gm Btl (*Bkc) NASAL 2 spray DAILY KELIN Administration Furosemide 20 mg 09/16/24 09:00 09/22/24 08:39 Furosemide 20 Mg Tablet PO 20 mg BID KELIN Administration Glucagon 1 mg 09/15/24 12:45 Glucagon For Inj 1 Mg Vial IM PRN PRN Hypoglycemia Protocol Glucose 15 gm 09/15/24 12:45 Glucose Oral Gel 15 Gm Of Glucse In 37.5 Gm Tube PO PRN PRN Hypoglycemia Protocol Guaifenesin 1,200 mg 09/16/24 09:00 09/22/24 08:39 Guaifenesin 12 Hr 600 Mg Tabcr PO 1,200 mg BID KELIN Administration Hydralazine HCl 10 mg 09/16/24 09:00 09/22/24 13:26 Hydralazine 10 Mg Tablet PO 10 mg QID KELIN Administration Hydralazine HCl 10 mg 09/18/24 10:11 Hydralazine Hcl 20 Mg/Ml Vial IV PUSH Q8H PRN Blood Pressure - High Hydralazine HCl 25 mg 09/22/24 08:35 09/22/24 10:15 Hydralazine Hcl 25 Mg Tablet PO 25 mg Q8H KELIN Administration Dextrose 1,000 mls @ 100 mls/hr 09/15/24 12:45 Dextrose 5% 1,000 Ml IVPB PRN PRN Hypoglycemia Protocol Acyclovir Sodium 800 mg/ 266 mls @ 266 mls/hr 09/19/24 15:00 09/22/24 14:52 Dextrose IVPB 10/03/24 23:59 125 mls/hr Q8HR KELIN Administration Ampicillin Sodium 2 gm in 100 mls @ 200 mls/hr 09/19/24 17:00 09/22/24 13:12 Ampicillin 2 Gm/Ns 100 Ml IVPB 100 mls/hr Q4H KELIN Administration Cefepime HCl 2 gm in 50 mls @ 100 mls/hr 09/19/24 16:00 09/22/24 08:44 Maxipime 2 Gm/Ns 50 Ml IVPB 100 mls/hr Q8H KELIN Administration Vancomycin HCl 1,250 mg in 250 mls @ 166.667 mls/hr 09/21/24 02:00 09/22/24 14:51 Vancomycin 1,250 Mg/Ns 250 Ml IVPB 125 mls/hr Q18H KELIN Administration Isosorbide Mononitrate 30 mg 09/16/24 09:00 09/22/24 08:39 Isosorbide Mononitrate 30 Mg Tab.Er.24h PO 30 mg DAILY KELIN Administration Levalbuterol HCl 1.25 mg 09/22/24 08:41 Levalbuterol Neb 1.25 Mg/3 Ml INHALATION Q6HRT PRN Shortness Of Breath Lidocaine 2 patch 09/16/24 09:00 09/22/24 13:00 Lidocaine 5% Patch TOPICAL 2 patch DAILY KELIN Administration Losartan Potassium 100 mg 09/16/24 09:00 09/22/24 08:43 Losartan Potassium 100 Mg Tablet PO 100 mg DAILY KELIN Administration Memantine 5 mg 09/16/24 00:25 09/22/24 08:39 Memantine 5 Mg Tablet PO 5 mg Q12HR KELIN Administration Metoprolol Tartrate 100 mg 09/16/24 00:25 09/22/24 08:40 Metoprolol Tartrate 50 Mg Tab PO 100 mg Q12HR KELIN Administration Ondansetron HCl 4 mg 09/15/24 12:45 Ondansetron Inj 4 Mg/2 Ml Vial IV PUSH Q4H PRN Nausea Pantoprazole Sodium 40 mg 09/16/24 09:00 09/22/24 08:42 Pantoprazole 40 Mg Tablet PO 40 mg DAILY KELIN Administration Polyethylene Glycol 17 gm 09/15/24 23:37 Polyethylene Glycol 3350 17 Gm Powd.Pack PO DAILY PRN Constipation Potassium Chloride 10 meq 09/16/24 09:00 09/22/24 08:41 Potassium Chloride 10 Meq Er Tablet PO 10 meq DAILY KELIN Administration Pregabalin 150 mg 09/16/24 00:25 09/22/24 08:39 Pregabalin (*Crx) 75 Mg Capsule PO 150 mg Q12HR KELIN Administration Primidone 100 mg 09/22/24 09:00 09/22/24 13:26 Primidone 50 Mg Tablet PO 100 mg TID KELIN Administration Sodium Chloride 2 spray 09/15/24 23:37 Saline 0.65% [place] Soln 44 Ml Btl NASAL PRN PRN Congestion Vitamin B Complex 1 cap 09/16/24 09:00 09/22/24 08:41 Vitamin B Complex Capsule PO 1 cap QAM KELIN Administration Vitamin D 5,000 units 09/16/24 09:00 09/22/24 08:40 Cholecalciferol 5,000 Units Tablet PO 5,000 units DAILY KELIN Administration Vitamin E 800 unit 09/16/24 09:00 09/22/24 08:43 Vitamin E 400 Unit Capsule PO 800 unit DAILY KELIN Administration Radiology Results: ITS Impressions Head CT 09/15/24 11:48 IMPRESSION: 1. 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 No acute intracranial process. 2. Age-related changes including moderate diffuse on loss and mild scattered white matter hypoattenuation consistent with chronic small vessel ischemic disease. Brain MRI 09/18/24 08:50 IMPRESSION: 1. Age-related changes in the brain. No acute intracranial process. 2. 1.3 x 1.2 x 0.9 cm T2 hyperintense intrasellar mass versus cystic lesion. 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 There is been no evident change in appearance of the pituitary on multiple prior CT studies dating back to thousand 17 which would argue against malignancy/metastases. Would recommend obtaining pre and postcontrast pituitary protocol MRI to distinguish solid versus cystic which would aid in narrowing the differential. Chest X-Ray 09/18/24 10:31 IMPRESSION: 1. No acute cardiopulmonary disease. Sella Turcica MRI 09/19/24 12:56 IMPRESSION: 1. 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 2. 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 Lumbar Puncture Fluoroscopy 09/19/24 14:00 IMPRESSION: 1. Successful fluoro-guided lumbar puncture. Labs Labs: Laboratory Results - last 24 hr 09/19/24 09/19/24 09/22/24 06:36 13:14 04:00 WBC 9.1 RBC 3.49 L Hgb 10.5 L Hct 31.7 L MCV 90.8 MCH 30.1 MCHC 33.1 RDW 14.3 Plt Count 304 MPV 10.4 Immature Gran % (Auto) 1.7 H Neut % (Auto) 53.4 Lymph % (Auto) 26.8 Grimes % (Auto) 14.2 H Eos % (Auto) 3.0 Baso % (Auto) 0.9 Lymph # (Auto) 2.44 Grimes # (Auto) 1.3 H Eos # (Auto) 0.3 Baso # (Auto) 0.1 Abs Immat Gran (auto) 0.15 H Absolute Neuts (auto) 4.9 Absolute Nucleated RBC 0.000 Nucleated RBC % 0.0 Sodium 130 L Potassium 3.8 Chloride 93 L Carbon Dioxide 33 H Anion Gap 4 BUN 19 H Creatinine 0.61 L Estim Creat Clear Calc 75 Estimated GFR > 60 Glucose 102 Calcium 8.3 L Phosphorus 4.1 Magnesium 1.6 Total Bilirubin 0.4 AST 22 ALT 29 Alkaline Phosphatase 80 Total Protein 6.0 L Albumin 2.9 L Folate 8.4 Fluid EBV Source *csf CSF Lactic Acid 13.4 CSF EBV DNA (PCR) Not detected CSF Herpes I DNA (PCR) Not detected CSF Herpes II DNA (PCR) Not detected Vancomycin Trough West Nile Virus IgM Ab <0.90 HSV (PCR) Source *csf 09/22/24 12:50 WBC RBC Hgb Hct MCV MCH MCHC RDW Plt Count MPV Immature Gran % (Auto) Neut % (Auto) Lymph % (Auto) Grimes % (Auto) Eos % (Auto) Baso % (Auto) Lymph # (Auto) Grimes # (Auto) Eos # (Auto) Baso # (Auto) Abs Immat Gran (auto) Absolute Neuts (auto) Absolute Nucleated RBC Nucleated RBC % Sodium Potassium Chloride Carbon Dioxide Anion Gap BUN Creatinine Estim Creat Clear Calc Estimated GFR Glucose Calcium Phosphorus Magnesium Total Bilirubin AST ALT Alkaline Phosphatase Total Protein Albumin Folate Fluid EBV Source CSF Lactic Acid CSF EBV DNA (PCR) CSF Herpes I DNA (PCR) CSF Herpes II DNA (PCR) Vancomycin Trough 17.8 West Nile Virus IgM Ab HSV (PCR) Source
[2024-09-22] MEDS: ATORVASTATIN 10 MG TABLET PO (20:54)
[2024-09-23] VITALS (10 sets, daily range): BP systolic 114–164; BP diastolic 49–70; PULSE 66–85; RESP 16–18; TEMP 36.2–36.5; O2SAT 98–100
--- NOTE | 2024-09-23 00:35 | PC.NURSE ---
The patient was transferred in stable condition to room 243. Report was given to receiving RN and all questions addressed. All belongings were sent with the patient.
--- NOTE | 2024-09-23 01:15 | ADMGEN ---
This patient, Celestina Ewing, was admitted to Medical Room 243-. Patient/family oriented to hospital policies and general routines including ID bracelet, bed and alarms, visiting hours, pain management, procedures, bathroom and other care routines, personal items, smoking policy, room service/diet, and visiting hours. Information on how to activate the Rapid Response Team has been discussed. Patient/Family are encouraged to report perceived risks to care and to ask questions if they do not understand what they are told or what they should do.
[2024-09-23] MEDS: AMPICILLIN 2 GM/NS 100 ML 2 GM/100 ML BAG IVPB ×6 (01:23→22:09)
[2024-09-23 05:33] LABS: Basophils Absolute Auto 0.1 K/mm3 (0.0-0.1); Basophils Percent Auto 1.2 % (0.2-1.2); Eosinophils Absolute Auto 0.3 K/mm3 (0-0.3); Eosinophils Percent Auto 3.1 % (0-4.4); Hematocrit 33.5 % (37.0-47.0); Hemoglobin 10.9 g/dL (12.0-15.0); Immature Granulocyte Absolute 0.29 K/mm3 (0.00-0.031); Immature Granulocyte Percent A 3.5 % (0-0.5); Lymphocytes Absolute Auto 2.61 K/mm3 (0.9-3.2); Lymphocytes Percent Auto 31.4 % (18.3-44.2); Mean Corpuscular HGB Conc 32.5 g/dl (32-36); Mean Corpuscular Hemoglobin 30.3 pg (26-34); Mean Corpuscular Volume 93.1 fl (80-100); Monocytes Absolute Auto 1.2 K/mm3 (0.1-0.6); Monocytes Percent Auto 13.9 % (2.6-8.5); Neutrophils Absolute Auto 3.9 K/mm3 (1.3-6.7); Neutrophils Percent Auto 46.9 % (45.5-73.1); Platelet Count Result 304 k/mm3 (150-375); Red Cell Distribution Width 14.4 % (11.5-14.5); White Blood Count 8.3 K/mm3 (4.5-10.0)
[2024-09-23 05:46] LABS: Alanine Aminotransferase 27 U/L (6-35); Albumin Level 2.9 g/dL (3.5-5.1); Alkaline Phosphatase 77 U/L (38-126); Anion Gap 7 mmol/L (4-12); Aspartate Amino Transferase 24 U/L (14-36); Bilirubin,Total 0.4 mg/dL (0.2-1.3); Blood Urea Nitrogen 22 mg/dL (7-17); Calcium 8.5 mg/dL (8.4-10.2); Carbon Dioxide 31 mmol/L (22-30); Chloride 93 mmol/L (98-107); Estimated CRCL calculation 74 ml/min; Estimated Glomerular Filt Rate > 60; Glucose 101 mg/dL (65-110); Magnesium 2.1 mg/dL (1.6-2.3); Potassium 4.2 mmol/L (3.4-5.0); Sodium 131 mmol/L (137-145)
[2024-09-23 08:04] LABS: Glucose Point of Care 104 mg/dl (65-105)
[2024-09-23] MEDS: PRIMIDONE 50 MG TABLET 100 MG PO ×3 (08:36→17:42)
[2024-09-23] MEDS: VITAMIN E 400 UNIT CAPSULE 800 UNIT PO (08:37)
[2024-09-23] MEDS: LOSARTAN POTASSIUM 100 MG TABLET PO (08:37)
[2024-09-23] MEDS: guaiFENesin 12 HR 600 MG TABCR 1200 MG PO ×2 (08:37→17:42)
[2024-09-23] MEDS: amLODIPine BESYLATE 10 MG TABLET PO (08:37)
[2024-09-23] MEDS: MEMANTINE 5 MG TABLET PO ×2 (08:37→21:50)
[2024-09-23] MEDS: PREGABALIN (*CRX) 75 MG CAPSULE 150 MG PO ×2 (08:37→21:50)
[2024-09-23] MEDS: hydrALAZINE HCL 25 MG TABLET PO ×3 (08:37→23:54)
[2024-09-23] MEDS: VITAMIN B COMPLEX CAPSULE 1 CAP PO (08:37)
[2024-09-23] MEDS: BACLOFEN 5 MG TABLET PO ×3 (08:37→17:41)
[2024-09-23] MEDS: POTASSIUM CHLORIDE 10 MEQ ER TABLET PO (08:37)
[2024-09-23] MEDS: FUROSEMIDE 20 MG TABLET PO ×2 (08:37→17:41)
[2024-09-23] MEDS: METOPROLOL TARTRATE 50 MG TAB 100 MG PO ×2 (08:37→21:48)
[2024-09-23] MEDS: PANTOPRAZOLE 40 MG TABLET PO (08:37)
[2024-09-23] MEDS: ISOSORBIDE MONONITRATE 30 MG TAB.ER.24H PO (08:37)
[2024-09-23] MEDS: CHOLECALCIFEROL 5,000 UNITS TABLET 5000 UNITS PO (08:38)
[2024-09-23] MEDS: CEFEPIME 2 GM/NS 50 ML 2 GM/50 ML BAG IVPB ×3 (08:38→23:54)
--- NOTE | 2024-09-23 09:08 | P.PNIM_ITS ---
Progress Note: A&P Assessment and Plan (1) AMS (altered mental status): Code(s): R41.82 - Altered mental status, unspecified Status: Acute Assessment and Plan: Patient presents with altered mental status. She has a normal baseline AOx3 with slow speech. 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 Brain MRI showing age-related changes in the brain but no acute intracranial process. 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 Patient presented with fevers on 09/15. LP performed 09/19 showing no RBCs and 1 WBCs with mostly lymphocytes. Gram stain showing rare WBC and no organisms. Glucose 97 and protein 51. Viral and bacterial meningitis unlikely but she was on abx prior to LP being p erformed. Consider AMS related to polypharmacy. Symptoms seem to wax and wane - delirium? CSF HSV PCR negative. Acyclovir stopped. CSF cultures pending. Continue IV abx. Continue to adjust medications to improve her mental status. Started PT/OT/ST. ST recommended dropping her from Level 5 to Level 4 Pureed diet. Discussed with neurology. He recommended continuing to wean primidone every 7 da ys. (2) Sepsis: Qualifiers: Sepsis acute organ dysfunction status: unspecified Sepsis type: sepsis due to unspecified organism Qualified Code(s): A41.9 - Sepsis, unspecified organism Code(s): A41.9 - Sepsis, unspecified organism Status: Acute Assessment and Plan: Noted on admission with fevers, AMS and elevated white count. UTI has been ruled out. Blood cultures negative. Chest x-ray was clear on admission and repeat CXR clear on 09/18. Continue antibiotics for now with plans for deescalating once culture results are known. (3) Atrial fibrillation with RVR: Code(s): I48.91 - Unspecified atrial fibrillation Status: Acute Assessment and Plan: Review of chart showing she has AFib and was on Xarelto on prior admissions. In the paper chart, the papers from the correction sheets only had 5 of 6 sheets. Suspect the 6th sheet listed additional medications (including Xarelto). RN will call [facility] to get a complete list of patient's medications. Start Xarelto tonight. (4) Tachycardia: Code(s): R00.0 - Tachycardia, unspecified Status: Resolved Assessment and Plan: Probably related to above. Heart rate better controlled. No alarms by tele so tele stopped. (5) Hypertension: Code(s): I10 - Essential (primary) hypertension Status: Acute Assessment and Plan: Patient's blood pressure was reviewed on 09/23 Blood pressure remains reasonably well controlled. Medications adjusted. Will continue to monitor for now (6) Acute and chronic respiratory failure: Qualifiers: Respiratory failure complication: hypoxia Qualified Code(s): J96.21 - Acute and chronic respiratory failure with hypoxia Code(s): J96.20 - Acute and chronic respiratory failure, unspecified whether with hypoxia or hypercapnia Status: Acute Assessment and Plan: ABG in ER - pH of 7.46, pCO2 33.0, PO2 67.4, bicarb 23.0, O2 94.6%. Patient presumably wears oxygen at the facility but has been weaned to room air here Continue CPAP at night and with naps as she allows. (7) Obstructive sleep apnea: Code(s): G47.33 - Obstructive sleep apnea (adult) (pediatric) Status: Acute Assessment and Plan: Continue CPAP at night and with naps as she allows. (8) UTI (urinary tract infection): Qualifiers: Hematuria presence: without hematuria Urinary tract infection type: acute cystitis Qualified Code(s): N30.00 - Acute cystitis without hematuria Code(s): N39.0 - Urinary tract infection, site not specified Status: Resolved Assessment and Plan: UA is consistent with UTI. UCx collected. 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 Abx started. BCx and UCx negative. UTI ruled out. Remove Delarosa once patient more mobile. Plan DVT prophylaxis - Xarelto Code status -full Subjective Date/time seen: 09/23/24 09:08 Interval history: 73yo female with hx of chronic hyponatremia, anemia, Bipolar disorder, Chronic resp failure on home oxygen, GERD, epilepsy, and neurocognitive disorder who was originally discharged from [facility] with pneumonia, that presented back to the Emergency department with weakness, fever and altered mental status. Awake, alert but only nods to questions today. Review of Systems Review of Systems: ROS unobtainable: Yes unobtainable due to mental status Exam Narrative: AF 97.6 164/70 80 16 98% ra Gen - NARD Chest -chest clear anteriorly CV - RRR S1/S2 Abd - Soft, NT/ND, +BS. - Delarosa secured draining clear yellow urine. Ext - No right pedal edema. Left [id number] amputation. Neuro -patient is awake and alert but nonverbal at this time. Psych - flat affect Skin - Warm and dry Objective Data Vital Signs Vital Signs: Vital Signs - 24 hr 09/22/24 10:00 09/22/24 12:00 09/22/24 13:20 Temperature Pulse Rate 92 101 H 88 Respiratory Rate Blood Pressure 148/59 H Pulse Oximetry Oxygen Delivery Oxygen Flow Rate 09/22/24 15:50 09/22/24 16:00 09/22/24 18:00 Temperature 98.3 F Pulse Rate 79 80 92 Respiratory Rate 18 Blood Pressure 143/53 H Pulse Oximetry 99 Oxygen Delivery Oxygen Flow Rate 09/22/24 20:00 09/22/24 20:54 09/23/24 00:00 Temperature 97.1 F L Pulse Rate 85 69 Respiratory Rate 18 Blood Pressure 141/49 H Pulse Oximetry 99 100 Oxygen Delivery Oxygen Flow Rate 2 09/23/24 01:33 09/23/24 05:28 09/23/24 08:35 Temperature 97.7 F 97.6 F Pulse Rate 76 85 Respiratory Rate 16 16 Blood Pressure 162/54 H 164/70 H Pulse Oximetry 99 100 98 Oxygen Delivery Nasal Cannula Oxygen Flow Rate 2.5 09/23/24 08:37 Temperature Pulse Rate 80 Respiratory Rate Blood Pressure Pulse Oximetry Oxygen Delivery Oxygen Flow Rate Intake/Output Intake/Output: Intake & Output 09/20/24 09/21/24 09/22/24 09/23/24 23:59 23:59 23:59 23:59 Intake Total 2328 2751.3 2267 700 Output Total 3300 2600 1750 1450 Balance -972 151.3 517 -750 Meds/Results Medications: Active Medications Generic Name Dose Route Start Last Admin Trade Name Freq PRN Reason Stop Dose Admin Acetaminophen 650 mg 09/19/24 09:14 Acetaminophen 650 Mg Suppository RECTAL Q6H PRN Mild Pain (1-3) or Fever Acetaminophen 650 mg 09/19/24 10:07 09/22/24 13:16 Acetaminophen 325 Mg Tablet PO 650 mg Q6H PRN Administration Mild Pain (1-3) or Fever Amlodipine Besylate 10 mg 09/16/24 09:00 09/23/24 08:37 Amlodipine Besylate 10 Mg Tablet PO 10 mg DAILY KELIN Administration Artificial Tears 1 drop 09/15/24 23:37 Artificial Tears Ophth Soln 15 Ml Bottle EACH EYE QID PRN Dry Eye(S) Atorvastatin Calcium 10 mg 09/16/24 00:25 09/22/24 20:54 Atorvastatin 10 Mg Tablet PO 10 mg HS KELIN Administration Baclofen 5 mg 09/22/24 09:00 09/23/24 08:37 Baclofen 5 Mg Tablet PO 5 mg TID KELIN Administration Dextrose 12.5 gm 09/15/24 12:45 Dextrose 50% 25 Gm/50 Ml Syringe IV PUSH PRN PRN Hypoglycemia Protocol Diclofenac Sodium 1 applic 09/15/24 23:37 Diclofenac Sodium 1% 100 Gm Gel (*Bkc) TOPICAL BID PRN moderate pain (scale score 5-6) Fluticasone Propionate 2 spray 09/22/24 16:37 Fluticasone Propionate 0.05% Na Spr 16 Gm Btl (*Bkc) NASAL DAILY PRN Nasal Congestion Furosemide 20 mg 09/16/24 09:00 09/23/24 08:37 Furosemide 20 Mg Tablet PO 20 mg BID KELIN Administration Glucagon 1 mg 09/15/24 12:45 Glucagon For Inj 1 Mg Vial IM PRN PRN Hypoglycemia Protocol Glucose 15 gm 09/15/24 12:45 Glucose Oral Gel 15 Gm Of Glucse In 37.5 Gm Tube PO PRN PRN Hypoglycemia Protocol Guaifenesin 1,200 mg 09/16/24 09:00 09/23/24 08:37 Guaifenesin 12 Hr 600 Mg Tabcr PO 1,200 mg BID KELIN Administration Hydralazine HCl 10 mg 09/18/24 10:11 Hydralazine Hcl 20 Mg/Ml Vial IV PUSH Q8H PRN Blood Pressure - High Hydralazine HCl 25 mg 09/22/24 08:35 09/23/24 08:37 Hydralazine Hcl 25 Mg Tablet PO 25 mg Q8H KELIN Administration Dextrose 1,000 mls @ 100 mls/hr 09/15/24 12:45 Dextrose 5% 1,000 Ml IVPB PRN PRN Hypoglycemia Protocol Ampicillin Sodium 2 gm in 100 mls @ 200 mls/hr 09/19/24 17:00 09/23/24 06:09 Ampicillin 2 Gm/Ns 100 Ml IVPB Infused Q4H KELIN Infusion Cefepime HCl 2 gm in 50 mls @ 100 mls/hr 09/19/24 16:00 09/23/24 08:38 Maxipime 2 Gm/Ns 50 Ml IVPB 100 mls/hr Q8H KELIN Administration Vancomycin HCl 1,250 mg in 250 mls @ 166.667 mls/hr 09/21/24 02:00 09/22/24 14:51 Vancomycin 1,250 Mg/Ns 250 Ml IVPB 125 mls/hr Q18H KELIN Administration Isosorbide Mononitrate 30 mg 09/16/24 09:00 09/23/24 08:37 Isosorbide Mononitrate 30 Mg Tab.Er.24h PO 30 mg DAILY KELIN Administration Levalbuterol HCl 1.25 mg 09/22/24 08:41 Levalbuterol Neb 1.25 Mg/3 Ml INHALATION Q6HRT PRN Shortness Of Breath Lidocaine 2 patch 09/16/24 09:00 09/23/24 08:38 Lidocaine 5% Patch TOPICAL Not Given DAILY [facility] Losartan Potassium 100 mg 09/16/24 09:00 09/23/24 08:37 Losartan Potassium 100 Mg Tablet PO 100 mg DAILY KELIN Administration Memantine 5 mg 09/16/24 00:25 09/23/24 08:37 Memantine 5 Mg Tablet PO 5 mg Q12HR KELIN Administration Metoprolol Tartrate 100 mg 09/16/24 00:25 09/23/24 08:37 Metoprolol Tartrate 50 Mg Tab PO 100 mg Q12HR KELIN Administration Ondansetron HCl 4 mg 09/15/24 12:45 Ondansetron Inj 4 Mg/2 Ml Vial IV PUSH Q4H PRN Nausea Pantoprazole Sodium 40 mg 09/16/24 09:00 09/23/24 08:37 Pantoprazole 40 Mg Tablet PO 40 mg DAILY KELIN Administration Polyethylene Glycol 17 gm 09/15/24 23:37 Polyethylene Glycol 3350 17 Gm Powd.Pack PO DAILY PRN Constipation Potassium Chloride 10 meq 09/16/24 09:00 09/23/24 08:37 Potassium Chloride 10 Meq Er Tablet PO 10 meq DAILY KELIN Administration Pregabalin 150 mg 09/16/24 00:25 09/23/24 08:37 Pregabalin (*Crx) 75 Mg Capsule PO 150 mg Q12HR KELIN Administration Primidone 100 mg 09/22/24 09:00 09/23/24 08:36 Primidone 50 Mg Tablet PO 100 mg TID KELIN Administration Rivaroxaban 20 mg 09/23/24 17:00 Rivaroxaban 20 Mg Tablet PO DAILY@1700 [facility] Sodium Chloride 2 spray 09/15/24 23:37 Saline 0.65% Gordo Soln 44 Ml Btl NASAL PRN PRN Congestion Vitamin B Complex 1 cap 09/16/24 09:00 09/23/24 08:37 Vitamin B Complex Capsule PO 1 cap QAM KELIN Administration Vitamin D 5,000 units 09/16/24 09:00 09/23/24 08:38 Cholecalciferol 5,000 Units Tablet PO 5,000 units DAILY KELIN Administration Vitamin E 800 unit 09/16/24 09:00 09/23/24 08:37 Vitamin E 400 Unit Capsule PO 800 unit DAILY KELIN Administration Radiology Results: ITS Impressions Head CT 09/15/24 11:48 IMPRESSION: 1. 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 No acute intracranial process. 2. Age-related changes including moderate diffuse on loss and mild scattered white matter hypoattenuation consistent with chronic small vessel ischemic disease. Brain MRI 09/18/24 08:50 IMPRESSION: 1. Age-related changes in the brain. No acute intracranial process. 2. 1.3 x 1.2 x 0.9 cm T2 hyperintense intrasellar mass versus cystic lesion. 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 There is been no evident change in appearance of the pituitary on multiple prior CT studies dating back to thousand 17 which would argue against malignancy/metastases. Would recommend obtaining pre and postcontrast pituitary protocol MRI to distinguish solid versus cystic which would aid in narrowing the differential. Chest X-Ray 09/18/24 10:31 IMPRESSION: 1. No acute cardiopulmonary disease. Sella Turcica MRI 09/19/24 12:56 IMPRESSION: 1. 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 2. 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 Lumbar Puncture Fluoroscopy 09/19/24 14:00 IMPRESSION: 1. Successful fluoro-guided lumbar puncture. Labs Labs: Laboratory Results - last 24 hr 09/19/24 09/22/24 09/23/24 13:14 12:50 04:56 WBC 8.3 RBC 3.60 L Hgb 10.9 L Hct 33.5 L MCV 93.1 MCH 30.3 MCHC 32.5 RDW 14.4 Plt Count 304 MPV 11.0 H Immature Gran % (Auto) 3.5 H Neut % (Auto) 46.9 Lymph % (Auto) 31.4 Morrison % (Auto) 13.9 H Eos % (Auto) 3.1 Baso % (Auto) 1.2 Lymph # (Auto) 2.61 Morrison # (Auto) 1.2 H Eos # (Auto) 0.3 Baso # (Auto) 0.1 Abs Immat Gran (auto) 0.29 H Absolute Neuts (auto) 3.9 Absolute Nucleated RBC 0.000 Nucleated RBC % 0.0 Sodium 131 L Potassium 4.2 Chloride 93 L Carbon Dioxide 31 H Anion Gap 7 BUN 22 H Creatinine 0.62 L Estim Creat Clear Calc 74 Estimated GFR > 60 Glucose 101 POC Capillary Glucose Calcium 8.5 Magnesium 2.1 Total Bilirubin 0.4 AST 24 ALT 27 Alkaline Phosphatase 77 Total Protein 6.0 L Albumin 2.9 L Fluid EBV Source *csf CSF Lactic Acid 13.4 CSF EBV DNA (PCR) Not detected CSF Herpes I DNA (PCR) Not detected CSF Herpes II DNA (PCR) Not detected Vancomycin Trough 17.8 HSV (PCR) Source *csf 09/23/24 07:53 WBC RBC Hgb Hct MCV MCH MCHC RDW Plt Count MPV Immature Gran % (Auto) Neut % (Auto) Lymph % (Auto) Morrison % (Auto) Eos % (Auto) Baso % (Auto) Lymph # (Auto) Morrison # (Auto) Eos # (Auto) Baso # (Auto) Abs Immat Gran (auto) Absolute Neuts (auto) Absolute Nucleated RBC Nucleated RBC % Sodium Potassium Chloride Carbon Dioxide Anion Gap BUN Creatinine Estim Creat Clear Calc Estimated GFR Glucose POC Capillary Glucose 104 Calcium Magnesium Total Bilirubin AST ALT Alkaline Phosphatase Total Protein Albumin Fluid EBV Source CSF Lactic Acid CSF EBV DNA (PCR) CSF Herpes I DNA (PCR) CSF Herpes II DNA (PCR) Vancomycin Trough HSV (PCR) Source
[2024-09-23] MEDS: VANCOMYCIN 1,250 MG/NS 250 ML 1,250 MG/250 ML BAG 125 MG IVPB (10:11)
--- NOTE | 2024-09-23 12:52 | PCSTNOTE ---
Please refer to the Bedside Swallow Evaluation in the EMR. Please note, silent aspiration cannot be ruled out at bedside. This 73 year old female was arrived to the Emergency Department on 09/16/24 d/t weakness, fever, and altered mental status. She was originally discharged from [facility] with pneumonia. The pt was evaluated at bedside to ensure swallowing safety during oral intake. Per FLORENCIO Hirsch, she demonstrated difficulty with masticating a small bite of banana this morning. The pt is edentulous on the upper portion of her mouth and has few teeth on the bottom. Per [facility] Steward, the pt has a very weak, soft vocal quality and does not speak often. Trials of thin liquid via straw and cup edge were completed with pt showing no s/s of aspiration (no coughing). When the pt was prompted to say ah to ensure there was no wet/gurgly vocal quality, the pt was unable to follow directions. ST encouraged the pt and provided verbal and visual cues, but pt would not respond. ST continued the BSE with trials of puree (pudding) via spoon. Pt showed strong laryngeal elevation and no residue was noted. The pt showed no s/s of aspiration. D/t the pt being on a Level 4 (Minced and Moist) diet, ST put ludy cracker in pudding and let it soak. Trial of ludy cracker was presented to the pt. Pt expectorated it d/t difficulty with mastication. After each trial the pt was encouraged to say ah but refused. When leaving, the ST asked the pt if they needed anything and thanked them for their time. Pt verbalized no and thank you with a clear vocal quality. Please note that silent aspiration cannot be ruled out at bedside. Given the results of this assessment, it is recommended this pt receive an oral diet of pureed solids (IDDSI Level 4) and thin liquids (IDDSI Level 1). It is additionally recommended that the pt follow these standard swallowing precautions: Small bites/sips, sit upright during meals, and 1:1 supervision. It is also recommended that the pt receive repetition when given directions with max verbal and visual cues provided until understanding is achieved (pt consistently gave ST a head nod for yes/no). Dr. Morrison, [facility] Steward, and FLORENCIO Hirsch were notified of BSE results and recommendations. No further ST is warranted at this time. Thank you for this referral.
--- NOTE | 2024-09-23 13:30 | PC.NURSE ---
requested [facility] to fax over complete medication list to clarify if patient was taking xarelto prior to admission.
[2024-09-23 15:23] LABS: Source CEREBROSPINAL FLUID
[2024-09-23] MEDS: RIVAROXABAN 20 MG TABLET PO (17:41)
[2024-09-23] MEDS: ATORVASTATIN 10 MG TABLET PO (21:50)
--- NOTE | 2024-09-23 23:51 | PC.NURSE ---
sports book writer contacted lab and lab stated all CSF results were in the chart, other than those still pending
[2024-09-24] VITALS (8 sets, daily range): BP systolic 110–152; BP diastolic 45–61; PULSE 76–96; RESP 14–20; TEMP 36.3–37.5; O2SAT 94–100
[2024-09-24] MEDS: AMPICILLIN 2 GM/NS 100 ML 2 GM/100 ML BAG IVPB ×6 (01:55→22:10)
[2024-09-24] MEDS: VANCOMYCIN 1,250 MG/NS 250 ML 1,250 MG/250 ML BAG 166.7 MG IVPB ×2 (02:45→20:27)
[2024-09-24 06:30] LABS: Basophils Absolute Auto 0.1 K/mm3 (0.0-0.1); Basophils Percent Auto 0.8 % (0.2-1.2); Eosinophils Absolute Auto 0.2 K/mm3 (0-0.3); Eosinophils Percent Auto 2.1 % (0-4.4); Hematocrit 32.3 % (37.0-47.0); Hemoglobin 10.4 g/dL (12.0-15.0); Immature Granulocyte Absolute 0.33 K/mm3 (0.00-0.031); Immature Granulocyte Percent A 3.9 % (0-0.5); Lymphocytes Absolute Auto 2.09 K/mm3 (0.9-3.2); Lymphocytes Percent Auto 24.7 % (18.3-44.2); Mean Corpuscular HGB Conc 32.2 g/dl (32-36); Mean Corpuscular Hemoglobin 30.1 pg (26-34); Mean Corpuscular Volume 93.6 fl (80-100); Mean Platelet Volume 11.2 fl (7.4-10.4); Monocytes Percent Auto 11.9 % (2.6-8.5); Neutrophils Absolute Auto 4.8 K/mm3 (1.3-6.7); Neutrophils Percent Auto 56.6 % (45.5-73.1); Platelet Count Result 288 k/mm3 (150-375); Red Blood Count 3.45 M/mm3 (4.2-5.4); Red Cell Distribution Width 14.3 % (11.5-14.5); White Blood Count 8.5 K/mm3 (4.5-10.0)
[2024-09-24 06:48] LABS: Alanine Aminotransferase 23 U/L (6-35); Albumin Level 2.8 g/dL (3.5-5.1); Alkaline Phosphatase 81 U/L (38-126); Anion Gap 6 mmol/L (4-12); Aspartate Amino Transferase 24 U/L (14-36); Bilirubin,Total 0.4 mg/dL (0.2-1.3); Blood Urea Nitrogen 20 mg/dL (7-17); Calcium 8.1 mg/dL (8.4-10.2); Carbon Dioxide 30 mmol/L (22-30); Chloride 93 mmol/L (98-107); Estimated CRCL calculation 80 ml/min; Estimated Glomerular Filt Rate > 60; Glucose 92 mg/dL (65-110); Potassium 4.3 mmol/L (3.4-5.0); Sodium 129 mmol/L (137-145)
--- NOTE | 2024-09-24 06:55 | PM.IMPN ---
Progress Note: A&P Assessment and Plan (1) AMS (altered mental status): Code(s): R41.82 - Altered mental status, unspecified Status: Acute Assessment and Plan: Patient presents with altered mental status. She has a normal baseline AOx3 with slow speech. 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 Patient presented with fevers on 09/15. LP performed 09/19 showing no RBCs and 1 WBCs with mostly lymphocytes. Gram stain showing rare WBC and no organisms. Glucose 97 and protein 51. Viral and bacterial meningitis unlikely but she was on abx prior to LP being performed. Consider AMS related to polypharmacy. Consider catatonia. Symptoms seem to wax and wane - delirium? CSF HSV PCR negative. Acyclovir stopped. CSF cultures still pending and lab called to update. Continue IV abx until culture results known. Continue to adjust medications to improve her mental status. Started PT/OT/ST. ST recommended dropping her from Level 5 to Level 4 Pureed diet which was done. Discussed with neurology. He recommended continuing to wean primidone every 7 days. Will add scheduled IV Ativan for possible catatonia. (2) Sepsis: Qualifiers: Sepsis acute organ dysfunction status: unspecified Sepsis type: sepsis due to unspecified organism Qualified Code(s): A41.9 - Sepsis, unspecified organism Code(s): A41.9 - Sepsis, unspecified organism Status: Acute Assessment and Plan: Noted on admission with fevers, AMS and elevated white count. UTI has been ruled out. Blood cultures negative. Chest x-ray was clear on admission and repeat CXR clear on 09/18. Requiring O2 now. Will repeat CXR Continue antibiotics for now with plans for deescalating once culture results are known. (3) Atrial fibrillation with RVR: Code(s): I48.91 - Unspecified atrial fibrillation Status: Acute Assessment and Plan: Review of chart showing she has AFib and was on Xarelto on prior admissions. In the paper chart, the papers from the longterm sheets only had 5 of 6 sheets. Suspect the 6th sheet listed additional medications (including Xarelto). RN will call [facility] home to get a complete list of patient's medications. Restarted Xarelto (4) Hypertension: Code(s): I10 - Essential (primary) hypertension Status: Acute Assessment and Plan: Patient's blood pressure was reviewed on 09/24 Blood pressure remains reasonably well controlled. Medications adjusted. Will continue to monitor for now (5) Acute and chronic respiratory failure: Qualifiers: Respiratory failure complication: hypoxia Qualified Code(s): J96.21 - Acute and chronic respiratory failure with hypoxia Code(s): J96.20 - Acute and chronic respiratory failure, unspecified whether with hypoxia or hypercapnia Status: Acute Assessment and Plan: ABG in ER - pH of 7.46, pCO2 33.0, PO2 67.4, bicarb 23.0, O2 94.6%. Patient presumably wears oxygen at the facility but has been weaned to room air here Now on O2 past day. Will check CXR. Wean O2 as tolerated Continue CPAP at night and with naps as she allows. (6) Obstructive sleep apnea: Code(s): G47.33 - Obstructive sleep apnea (adult) (pediatric) Status: Acute Assessment and Plan: Continue CPAP at night and with naps as she allows. (7) UTI (urinary tract infection): Qualifiers: Hematuria presence: without hematuria Urinary tract infection type: acute cystitis Qualified Code(s): N30.00 - Acute cystitis without hematuria Code(s): N39.0 - Urinary tract infection, site not specified Status: Resolved Assessment and Plan: UA is consistent with UTI. UCx collected. 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 Abx started. BCx and UCx negative. UTI ruled out. Remove Delarosa once patient more mobile. (8) Tachycardia: Code(s): R00.0 - Tachycardia, unspecified Status: Resolved Assessment and Plan: Probably related to above. Heart rate better controlled. No alarms by tele so tele stopped. Plan DVT prophylaxis - Xarelto Code status -full Subjective Date/time seen: 09/24/24 06:55 Interval history: 73yo female with hx of chronic hyponatremia, anemia, Bipolar disorder, Chronic resp failure on home oxygen, GERD, epilepsy, and neurocognitive disorder who was originally discharged from [facility] with pneumonia, that presented back to the Emergency department with weakness, fever and altered mental status. Awake, alert. When asked how she is doing, she whispers 'not good'. When asked about symptoms or why she does not feel well, she whispers 'not sure' and does not elaborate. She does not follow commands. Exam Narrative: AF 97.7 148/59 81 16 98% 3L Gen - NARD Chest -chest clear anteriorly to quiet respirations. CV - RRR S1/S2 Abd - Soft, NT/ND, +BS. - Delarosa secured draining clear yellow urine. Ext - No right pedal edema. Left [id number] amputation. Neuro -patient is awake and alert but mute and staring. does not interact with examiner or track. does not follow commands Psych - flat affect Skin - Warm and dry Objective Data Vital Signs Vital Signs: Vital Signs - 24 hr 09/23/24 08:35 09/23/24 08:37 09/23/24 09:00 Temperature 97.6 F Pulse Rate 85 80 Respiratory Rate 16 Blood Pressure 164/70 H Pulse Oximetry 98 Oxygen Delivery Room Air Oxygen Flow Rate 09/23/24 14:27 09/23/24 15:24 09/23/24 17:40 Temperature 97.7 F Pulse Rate 69 Respiratory Rate 18 Blood Pressure 114/53 L 160/64 H Pulse Oximetry 98 Oxygen Delivery Nasal Cannula Oxygen Flow Rate 2.5 09/23/24 20:00 09/23/24 21:48 09/23/24 23:53 Temperature 97.7 F Pulse Rate 66 81 Respiratory Rate 16 Blood Pressure 148/59 H Pulse Oximetry 98 98 Oxygen Delivery Nasal Cannula Oxygen Flow Rate 3 Intake/Output Intake/Output: Intake & Output 09/21/24 09/22/24 09/23/24 09/24/24 23:59 23:59 23:59 23:59 Intake Total 2751.3 2517 1570 700 Output Total 2600 1750 2350 1500 Balance 151.3 657 -055 -800 Meds/Results Medications: Active Medications Generic Name Dose Route Start Last Admin Trade Name Freq PRN Reason Stop Dose Admin Acetaminophen 650 mg 09/19/24 09:14 Acetaminophen 650 Mg Suppository RECTAL Q6H PRN Mild Pain (1-3) or Fever Acetaminophen 650 mg 09/19/24 10:07 09/22/24 13:16 Acetaminophen 325 Mg Tablet PO 650 mg Q6H PRN Administration Mild Pain (1-3) or Fever Amlodipine Besylate 10 mg 09/16/24 09:00 09/23/24 08:37 Amlodipine Besylate 10 Mg Tablet PO 10 mg DAILY KELIN Administration Artificial Tears 1 drop 09/15/24 23:37 Artificial Tears Ophth Soln 15 Ml Bottle EACH EYE QID PRN Dry Eye(S) Atorvastatin Calcium 10 mg 09/16/24 00:25 09/23/24 21:50 Atorvastatin 10 Mg Tablet PO 10 mg HS KELIN Administration Baclofen 5 mg 09/22/24 09:00 09/23/24 17:41 Baclofen 5 Mg Tablet PO 5 mg TID KELIN Administration Dextrose 12.5 gm 09/15/24 12:45 Dextrose 50% 25 Gm/50 Ml Syringe IV PUSH PRN PRN Hypoglycemia Protocol Diclofenac Sodium 1 applic 09/15/24 23:37 Diclofenac Sodium 1% 100 Gm Gel (*Bkc) TOPICAL BID PRN moderate pain (scale score 5-6) Fluticasone Propionate 2 spray 09/22/24 16:37 Fluticasone Propionate 0.05% Na Spr 16 Gm Btl (*Bkc) NASAL DAILY PRN Nasal Congestion Furosemide 20 mg 09/16/24 09:00 09/23/24 17:41 Furosemide 20 Mg Tablet PO 20 mg BID KELIN Administration Glucagon 1 mg 09/15/24 12:45 Glucagon For Inj 1 Mg Vial IM PRN PRN Hypoglycemia Protocol Glucose 15 gm 09/15/24 12:45 Glucose Oral Gel 15 Gm Of Glucse In 37.5 Gm Tube PO PRN PRN Hypoglycemia Protocol Guaifenesin 1,200 mg 09/16/24 09:00 09/23/24 17:42 Guaifenesin 12 Hr 600 Mg Tabcr PO 1,200 mg BID KELIN Administration Hydralazine HCl 10 mg 09/18/24 10:11 Hydralazine Hcl 20 Mg/Ml Vial IV PUSH Q8H PRN Blood Pressure - High Hydralazine HCl 25 mg 09/22/24 08:35 09/23/24 23:54 Hydralazine Hcl 25 Mg Tablet PO 25 mg Q8H KELIN Administration Dextrose 1,000 mls @ 100 mls/hr 09/15/24 12:45 Dextrose 5% 1,000 Ml IVPB PRN PRN Hypoglycemia Protocol Ampicillin Sodium 2 gm in 100 mls @ 200 mls/hr 09/19/24 17:00 09/24/24 05:13 Ampicillin 2 Gm/Ns 100 Ml IVPB 200 mls/hr Q4H KELIN Administration Cefepime HCl 2 gm in 50 mls @ 100 mls/hr 09/19/24 16:00 09/24/24 00:24 Maxipime 2 Gm/Ns 50 Ml IVPB Infused Q8H KELIN Infusion Vancomycin HCl 1,250 mg in 250 mls @ 166.667 mls/hr 09/21/24 02:00 09/24/24 02:45 Vancomycin 1,250 Mg/Ns 250 Ml IVPB 166.7 mls/hr Q18H KELIN Administration Isosorbide Mononitrate 30 mg 09/16/24 09:00 09/23/24 08:37 Isosorbide Mononitrate 30 Mg Tab.Er.24h PO 30 mg DAILY KELIN Administration Levalbuterol HCl 1.25 mg 09/22/24 08:41 Levalbuterol Neb 1.25 Mg/3 Ml INHALATION Q6HRT PRN Shortness Of Breath Lidocaine 2 patch 09/16/24 09:00 09/23/24 08:38 Lidocaine 5% Patch TOPICAL Not Given DAILY KELIN Losartan Potassium 100 mg 09/16/24 09:00 09/23/24 08:37 Losartan Potassium 100 Mg Tablet PO 100 mg DAILY KELIN Administration Memantine 5 mg 09/16/24 00:25 09/23/24 21:50 Memantine 5 Mg Tablet PO 5 mg Q12HR KELIN Administration Metoprolol Tartrate 100 mg 09/16/24 00:25 09/23/24 21:48 Metoprolol Tartrate 50 Mg Tab PO 100 mg Q12HR KELIN Administration Ondansetron HCl 4 mg 09/15/24 12:45 Ondansetron Inj 4 Mg/2 Ml Vial IV PUSH Q4H PRN Nausea Pantoprazole Sodium 40 mg 09/16/24 09:00 09/23/24 08:37 Pantoprazole 40 Mg Tablet PO 40 mg DAILY KELIN Administration Polyethylene Glycol 17 gm 09/15/24 23:37 Polyethylene Glycol 3350 17 Gm Powd.Pack PO DAILY PRN Constipation Potassium Chloride 10 meq 09/16/24 09:00 09/23/24 08:37 Potassium Chloride 10 Meq Er Tablet PO 10 meq DAILY KELIN Administration Pregabalin 150 mg 09/16/24 00:25 09/23/24 21:50 Pregabalin (*Crx) 75 Mg Capsule PO 150 mg Q12HR KELIN Administration Primidone 100 mg 09/22/24 09:00 09/23/24 17:42 Primidone 50 Mg Tablet PO 100 mg TID KELIN Administration Rivaroxaban 20 mg 09/23/24 17:00 09/23/24 17:41 Rivaroxaban 20 Mg Tablet PO 20 mg DAILY@1700 KELIN Administration Sodium Chloride 2 spray 09/15/24 23:37 Saline 0.65% [place] Soln 44 Ml Btl NASAL PRN PRN Congestion Vitamin B Complex 1 cap 09/16/24 09:00 09/23/24 08:37 Vitamin B Complex Capsule PO 1 cap QAM KELIN Administration Vitamin D 5,000 units 09/16/24 09:00 09/23/24 08:38 Cholecalciferol 5,000 Units Tablet PO 5,000 units DAILY KELIN Administration Vitamin E 800 unit 09/16/24 09:00 09/23/24 08:37 Vitamin E 400 Unit Capsule PO 800 unit DAILY KELIN Administration Radiology Results: ITS Impressions Head CT 09/15/24 11:48 IMPRESSION: 1. 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 No acute intracranial process. 2. Age-related changes including moderate diffuse on loss and mild scattered white matter hypoattenuation consistent with chronic small vessel ischemic disease. Brain MRI 09/18/24 08:50 IMPRESSION: 1. Age-related changes in the brain. No acute intracranial process. 2. 1.3 x 1.2 x 0.9 cm T2 hyperintense intrasellar mass versus cystic lesion. 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 There is been no evident change in appearance of the pituitary on multiple prior CT studies dating back to thousand 17 which would argue against malignancy/metastases. Would recommend obtaining pre and postcontrast pituitary protocol MRI to distinguish solid versus cystic which would aid in narrowing the differential. Chest X-Ray 09/18/24 10:31 IMPRESSION: 1. No acute cardiopulmonary disease. Sella Turcica MRI 09/19/24 12:56 IMPRESSION: 1. 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 2. 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 Lumbar Puncture Fluoroscopy 09/19/24 14:00 IMPRESSION: 1. Successful fluoro-guided lumbar puncture. Labs Labs: Laboratory Results - last 24 hr 09/19/24 09/23/24 09/24/24 13:14 07:53 05:35 WBC 8.5 RBC 3.45 L Hgb 10.4 L Hct 32.3 L MCV 93.6 MCH 30.1 MCHC 32.2 RDW 14.3 Plt Count 288 MPV 11.2 H Immature Gran % (Auto) 3.9 H Neut % (Auto) 56.6 Lymph % (Auto) 24.7 [place] % (Auto) 11.9 H Eos % (Auto) 2.1 Baso % (Auto) 0.8 Lymph # (Auto) 2.09 [place] # (Auto) 1.0 H Eos # (Auto) 0.2 Baso # (Auto) 0.1 Abs Immat Gran (auto) 0.33 H Absolute Neuts (auto) 4.8 Absolute Nucleated RBC 0.000 Nucleated RBC % 0.0 Sodium 129 L Potassium 4.3 Chloride 93 L Carbon Dioxide 30 Anion Gap 6 BUN 20 H Creatinine 0.57 L Estim Creat Clear Calc 80 Estimated GFR > 60 Glucose 92 POC Capillary Glucose 104 Calcium 8.1 L Magnesium 2.0 Total Bilirubin 0.4 AST 24 ALT 23 Alkaline Phosphatase 81 Total Protein 6.0 L Albumin 2.8 L CSF Source Cerebrospinal fluid CSF [place] RNA Not detected
[2024-09-24] MEDS: LORazepam INJ (*CRX) 2 MG/ML VIAL 1 MG IV PUSH ×2 (08:47→13:32)
[2024-09-24] MEDS: CEFEPIME 2 GM/NS 50 ML 2 GM/50 ML BAG IVPB ×3 (08:49→23:46)
[2024-09-24] MEDS: CHOLECALCIFEROL 5,000 UNITS TABLET 5000 UNITS PO (08:52)
[2024-09-24] MEDS: hydrALAZINE HCL 25 MG TABLET PO (08:52)
[2024-09-24] MEDS: PREGABALIN (*CRX) 75 MG CAPSULE 150 MG PO ×2 (08:52→20:28)
[2024-09-24] MEDS: METOPROLOL TARTRATE 50 MG TAB 100 MG PO ×2 (08:53→20:29)
[2024-09-24] MEDS: BACLOFEN 5 MG TABLET PO ×3 (08:53→16:07)
[2024-09-24] MEDS: PANTOPRAZOLE 40 MG TABLET PO (08:53)
[2024-09-24] MEDS: VITAMIN B COMPLEX CAPSULE 1 CAP PO (08:53)
[2024-09-24] MEDS: amLODIPine BESYLATE 10 MG TABLET PO (08:53)
[2024-09-24] MEDS: FUROSEMIDE 20 MG TABLET PO ×2 (08:54→17:52)
[2024-09-24] MEDS: LOSARTAN POTASSIUM 100 MG TABLET PO (08:54)
[2024-09-24] MEDS: guaiFENesin 12 HR 600 MG TABCR 1200 MG PO ×2 (08:55→16:05)
[2024-09-24] MEDS: ISOSORBIDE MONONITRATE 30 MG TAB.ER.24H PO (08:56)
[2024-09-24] MEDS: MEMANTINE 5 MG TABLET PO ×2 (08:56→20:29)
[2024-09-24] MEDS: POTASSIUM CHLORIDE 10 MEQ ER TABLET PO (08:57)
[2024-09-24] MEDS: VITAMIN E 400 UNIT CAPSULE 800 UNIT PO (08:58)
[2024-09-24] MEDS: ACETAMINOPHEN 325 MG TABLET 650 MG PO ×2 (09:16→20:26)
[2024-09-24] MEDS: FUROSEMIDE INJ 40 MG/4 ML VIAL IV PUSH (09:22)
[2024-09-24] MEDS: PRIMIDONE 50 MG TABLET 100 MG PO ×2 (12:02→16:07)
--- NOTE | 2024-09-24 14:02 | PCOTNOTE ---
OT orders received. PT evaluated the patient yesterday - Patient is dependent @ baseline with ADLs and uses a uriel to transfer out of bed. She is a alf resident at a [facility]-way. Discharging OT orders due to patient is at her baseline, no skilled OT indicated.
[2024-09-24] MEDS: RIVAROXABAN 20 MG TABLET PO (16:05)
[2024-09-24] MEDS: ATORVASTATIN 10 MG TABLET PO (20:29)
[2024-09-24] MEDS: LORazepam INJ (*CRX) 2 MG/ML VIAL 0.5 MG IV PUSH (22:10)
[2024-09-25] VITALS (8 sets, daily range): BP systolic 145–155; BP diastolic 51–59; PULSE 76–108; RESP 16–18; TEMP 36.3–36.8; O2SAT 91–100
[2024-09-25] MEDS: AMPICILLIN 2 GM/NS 100 ML 2 GM/100 ML BAG IVPB ×6 (00:19→20:38)
[2024-09-25] MEDS: LORazepam INJ (*CRX) 2 MG/ML VIAL 0.5 MG IV PUSH ×3 (05:04→21:13)
[2024-09-25 05:54] LABS: Basophils Absolute Auto 0.1 K/mm3 (0.0-0.1); Basophils Percent Auto 0.9 % (0.2-1.2); Eosinophils Absolute Auto 0.2 K/mm3 (0-0.3); Eosinophils Percent Auto 2.2 % (0-4.4); Hematocrit 31.2 % (37.0-47.0); Immature Granulocyte Percent A 3.9 % (0-0.5); Lymphocytes Absolute Auto 2.21 K/mm3 (0.9-3.2); Mean Corpuscular HGB Conc 32.1 g/dl (32-36); Mean Corpuscular Hemoglobin 30.1 pg (26-34); Mean Platelet Volume 11.3 fl (7.4-10.4); Monocytes Percent Auto 13.4 % (2.6-8.5); Neutrophils Absolute Auto 3.9 K/mm3 (1.3-6.7); Neutrophils Percent Auto 50.6 % (45.5-73.1); Platelet Count Result 260 k/mm3 (150-375); Red Blood Count 3.32 M/mm3 (4.2-5.4); Red Cell Distribution Width 14.5 % (11.5-14.5); White Blood Count 7.6 K/mm3 (4.5-10.0)
[2024-09-25 06:03] LABS: Alanine Aminotransferase 22 U/L (6-35); Albumin Level 2.9 g/dL (3.5-5.1); Alkaline Phosphatase 77 U/L (38-126); Anion Gap 3 mmol/L (4-12); Aspartate Amino Transferase 21 U/L (14-36); Bilirubin,Total 0.3 mg/dL (0.2-1.3); Blood Urea Nitrogen 25 mg/dL (7-17); Calcium 8.2 mg/dL (8.4-10.2); Carbon Dioxide 33 mmol/L (22-30); Chloride 95 mmol/L (98-107); Estimated CRCL calculation 77 ml/min; Estimated Glomerular Filt Rate > 60; Glucose 123 mg/dL (65-110); Potassium 4.5 mmol/L (3.4-5.0); Sodium 131 mmol/L (137-145)
--- NOTE | 2024-09-25 07:15 | PM.IMPN ---
Progress Note: A&P Assessment and Plan (1) AMS (altered mental status): Code(s): R41.82 - Altered mental status, unspecified Status: Acute Assessment and Plan: Patient presents with altered mental status. She has a normal baseline AOx3 with slow speech. 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 Patient presented with fevers on 09/15. LP performed 09/19 showing no RBCs and 1 WBCs with mostly lymphocytes. Gram stain showing rare WBC and no organisms. Glucose 97 and protein 51. Viral and bacterial meningitis unlikely but she was on abx prior to LP being performed. Consider AMS related to polypharmacy. Consider catatonia. Symptoms seem to wax and wane - delirium? CSF HSV PCR negative. Acyclovir stopped. CSF cultures still pending and lab called to update. Continue IV abx until culture results known. Continue to adjust medications to improve her mental status. Started PT/OT/ST. ST recommended dropping her from Level 5 to Level 4 Pureed diet which was done. Discussed with neurology. He recommended continuing to wean primidone every 7 days. Scheduled IV Ativan for possible catatonia. (2) Sepsis: Qualifiers: Sepsis acute organ dysfunction status: unspecified Sepsis type: sepsis due to unspecified organism Qualified Code(s): A41.9 - Sepsis, unspecified organism Code(s): A41.9 - Sepsis, unspecified organism Status: Acute Assessment and Plan: Noted on admission with fevers, AMS and elevated white count. UTI has been ruled out. Blood cultures negative. Chest x-ray was clear on admission and repeat CXR clear on 09/18. Requiring O2 now. Repeat CXR 09/24 showing congestive changes so Lasix IV once given with good UOP Continue antibiotics for now with plans for deescalating once culture results are known. Continue intermittent IV Lasix to improve fluid status. Lab to call [facility] to see about where the cultures are. (3) Atrial fibrillation with RVR: Code(s): I48.91 - Unspecified atrial fibrillation Status: Acute Assessment and Plan: Review of chart showing she has AFib and was on Xarelto on prior admissions. In the paper chart, the papers from the care home sheets only had 5 of 6 sheets. Suspect the 6th sheet listed additional medications (including Xarelto). RN will call [facility] to get a complete list of patient's medications. Restarted Xarelto (4) Hypertension: Code(s): I10 - Essential (primary) hypertension Status: Acute Assessment and Plan: Patient's blood pressure was reviewed on 09/25 Blood pressure became soft yesterday maybe due to the Ativan and/or lasix Hydralazine held. Will continue to monitor for now (5) Acute and chronic respiratory failure: Qualifiers: Respiratory failure complication: hypoxia Qualified Code(s): J96.21 - Acute and chronic respiratory failure with hypoxia Code(s): J96.20 - Acute and chronic respiratory failure, unspecified whether with hypoxia or hypercapnia Status: Acute Assessment and Plan: ABG in ER - pH of 7.46, pCO2 33.0, PO2 67.4, bicarb 23.0, O2 94.6%. Patient presumably wears oxygen at the facility but has been weaned to room air here Now on O2. As above. Wean O2 as tolerated Continue CPAP at night and with naps as she allows. (6) Obstructive sleep apnea: Code(s): G47.33 - Obstructive sleep apnea (adult) (pediatric) Status: Acute Assessment and Plan: Continue CPAP at night and with naps as she allows. (7) UTI (urinary tract infection): Qualifiers: Hematuria presence: without hematuria Urinary tract infection type: acute cystitis Qualified Code(s): N30.00 - Acute cystitis without hematuria Code(s): N39.0 - Urinary tract infection, site not specified Status: Resolved Assessment and Plan: UA is consistent with UTI. UCx collected. 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 Abx started. BCx and UCx negative. UTI ruled out. Remove Delarosa today (8) Tachycardia: Code(s): R00.0 - Tachycardia, unspecified Status: Resolved Assessment and Plan: Probably related to above. Heart rate better controlled. No alarms by tele so tele stopped. Plan DVT prophylaxis - Xarelto Code status -full Subjective Date/time seen: 09/25/24 07:15 Interval history: 73yo female with hx of chronic hyponatremia, anemia, Bipolar disorder, Chronic resp failure on home oxygen, GERD, epilepsy, and neurocognitive disorder who was originally discharged from [facility] with pneumonia, that presented back to the Emergency department with weakness, fever and altered mental status. Voice is stronger and more interactive with examiner. She does not 'feel to good'. Feels like she has 'rocks on my hips'. No CP or SOB. Exam Narrative: AF 98.1 148/59 78 16 100% 2L Gen - NARD Chest -chest clear anteriorly CV - RRR S1/S2 Abd - Soft, NT/ND, +BS. - Delarosa secured draining clear yellow urine. Ext - No right pedal edema. Left [id number] amputation. No right hip pain to palpation Neuro - voice is stronger Psych - depressed affect Skin - Warm and dry Objective Data Vital Signs Vital Signs: Vital Signs - 24 hr 09/24/24 08:51 09/24/24 08:53 09/24/24 08:53 Temperature 97.4 F L Pulse Rate 84 84 Respiratory Rate 16 Blood Pressure 152/61 H Pulse Oximetry 94 97 Oxygen Delivery Room Air Oxygen Flow Rate 09/24/24 09:07 09/24/24 15:45 09/24/24 17:40 Temperature 99.5 F 98.5 F Pulse Rate 82 76 Respiratory Rate 18 14 Blood Pressure 116/46 L 110/45 L Pulse Oximetry 97 97 100 Oxygen Delivery Nasal Cannula Oxygen Flow Rate 2.5 09/24/24 20:00 09/24/24 20:21 09/24/24 20:29 Temperature 97.4 F L Pulse Rate 87 96 Respiratory Rate 20 Blood Pressure 131/47 L Pulse Oximetry 99 99 Oxygen Delivery Nasal Cannula Oxygen Flow Rate 2 09/25/24 04:11 Temperature 98.1 F Pulse Rate 78 Respiratory Rate 16 Blood Pressure 148/59 H Pulse Oximetry 100 Oxygen Delivery Oxygen Flow Rate Intake/Output Intake/Output: Intake & Output 09/22/24 09/23/24 09/24/24 09/25/24 23:59 23:59 23:59 23:59 Intake Total 2517 1570 2640 500 Output Total 1750 2350 3350 800 Balance 330 -018 -710 -300 Meds/Results Medications: Active Medications Generic Name Dose Route Start Last Admin Trade Name Freq PRN Reason Stop Dose Admin Acetaminophen 650 mg 09/19/24 09:14 Acetaminophen 650 Mg Suppository RECTAL Q6H PRN Mild Pain (1-3) or Fever Acetaminophen 650 mg 09/19/24 10:07 09/24/24 20:26 Acetaminophen 325 Mg Tablet PO 650 mg Q6H PRN Administration Mild Pain (1-3) or Fever Amlodipine Besylate 10 mg 09/16/24 09:00 09/24/24 08:53 Amlodipine Besylate 10 Mg Tablet PO 10 mg DAILY KELIN Administration Artificial Tears 1 drop 09/15/24 23:37 Artificial Tears Ophth Soln 15 Ml Bottle EACH EYE QID PRN Dry Eye(S) Atorvastatin Calcium 10 mg 09/16/24 00:25 09/24/24 20:29 Atorvastatin 10 Mg Tablet PO 10 mg HS KELIN Administration Baclofen 5 mg 09/22/24 09:00 09/24/24 16:07 Baclofen 5 Mg Tablet PO 5 mg TID KELIN Administration Dextrose 12.5 gm 09/15/24 12:45 Dextrose 50% 25 Gm/50 Ml Syringe IV PUSH PRN PRN Hypoglycemia Protocol Diclofenac Sodium 1 applic 09/15/24 23:37 Diclofenac Sodium 1% 100 Gm Gel (*Bkc) TOPICAL BID PRN moderate pain (scale score 5-6) Fluticasone Propionate 2 spray 09/22/24 16:37 Fluticasone Propionate 0.05% Na Spr 16 Gm Btl (*Bkc) NASAL DAILY PRN Nasal Congestion Furosemide 20 mg 09/16/24 09:00 09/24/24 17:52 Furosemide 20 Mg Tablet PO 20 mg BID KELIN Administration Glucagon 1 mg 09/15/24 12:45 Glucagon For Inj 1 Mg Vial IM PRN PRN Hypoglycemia Protocol Glucose 15 gm 09/15/24 12:45 Glucose Oral Gel 15 Gm Of Glucse In 37.5 Gm Tube PO PRN PRN Hypoglycemia Protocol Guaifenesin 1,200 mg 09/16/24 09:00 09/24/24 16:05 Guaifenesin 12 Hr 600 Mg Tabcr PO 1,200 mg BID KELIN Administration Hydralazine HCl 10 mg 09/18/24 10:11 Hydralazine Hcl 20 Mg/Ml Vial IV PUSH Q8H PRN Blood Pressure - High Dextrose 1,000 mls @ 100 mls/hr 09/15/24 12:45 Dextrose 5% 1,000 Ml IVPB PRN PRN Hypoglycemia Protocol Ampicillin Sodium 2 gm in 100 mls @ 200 mls/hr 09/19/24 17:00 09/25/24 05:41 Ampicillin 2 Gm/Ns 100 Ml IVPB Infused Q4H KELIN Infusion Cefepime HCl 2 gm in 50 mls @ 100 mls/hr 09/19/24 16:00 09/25/24 00:18 Maxipime 2 Gm/Ns 50 Ml IVPB Infused Q8H KELIN Infusion Vancomycin HCl 1,250 mg in 250 mls @ 166.667 mls/hr 09/21/24 02:00 09/24/24 22:08 Vancomycin 1,250 Mg/Ns 250 Ml IVPB Infused Q18H KELIN Infusion Isosorbide Mononitrate 30 mg 09/16/24 09:00 09/24/24 08:56 Isosorbide Mononitrate 30 Mg Tab.Er.24h PO 30 mg DAILY KLEIN Administration Levalbuterol HCl 1.25 mg 09/22/24 08:41 Levalbuterol Neb 1.25 Mg/3 Ml INHALATION Q6HRT PRN Shortness Of Breath Lidocaine 2 patch 09/16/24 09:00 09/24/24 08:58 Lidocaine 5% Patch TOPICAL Not Given DAILY KELIN Lorazepam 0.5 mg 09/24/24 22:00 09/25/24 05:04 Lorazepam Inj (*Crx) 2 Mg/Ml Vial IV PUSH 0.5 mg Q8HR KELIN Administration Losartan Potassium 100 mg 09/16/24 09:00 09/24/24 08:54 Losartan Potassium 100 Mg Tablet PO 100 mg DAILY KELIN Administration Memantine 5 mg 09/16/24 00:25 09/24/24 20:29 Memantine 5 Mg Tablet PO 5 mg Q12HR KELIN Administration Metoprolol Tartrate 100 mg 09/16/24 00:25 09/24/24 20:29 Metoprolol Tartrate 50 Mg Tab PO 100 mg Q12HR KELIN Administration Miscellaneous Information 0 each 09/25/24 00:01 Lyrica Renew Order If Still Needs Or Will Auto D/C XX 10/25/24 00:00 CLARIFY KELIN Ondansetron HCl 4 mg 09/15/24 12:45 Ondansetron Inj 4 Mg/2 Ml Vial IV PUSH Q4H PRN Nausea Pantoprazole Sodium 40 mg 09/16/24 09:00 09/24/24 08:53 Pantoprazole 40 Mg Tablet PO 40 mg DAILY KELIN Administration Polyethylene Glycol 17 gm 09/15/24 23:37 Polyethylene Glycol 3350 17 Gm Powd.Pack PO DAILY PRN Constipation Potassium Chloride 10 meq 09/16/24 09:00 09/24/24 08:57 Potassium Chloride 10 Meq Er Tablet PO 10 meq DAILY KELIN Administration Pregabalin 150 mg 09/16/24 00:25 09/24/24 20:28 Pregabalin (*Crx) 75 Mg Capsule PO 150 mg Q12HR KELIN Administration Primidone 100 mg 09/22/24 09:00 09/24/24 16:07 Primidone 50 Mg Tablet PO 100 mg TID KELIN Administration Rivaroxaban 20 mg 09/23/24 17:00 09/24/24 16:05 Rivaroxaban 20 Mg Tablet PO 20 mg DAILY@1700 KELIN Administration Sodium Chloride 2 spray 09/15/24 23:37 Saline 0.65% [place] Soln 44 Ml Btl NASAL PRN PRN Congestion Vitamin B Complex 1 cap 09/16/24 09:00 09/24/24 08:53 Vitamin B Complex Capsule PO 1 cap QAM KELIN Administration Vitamin D 5,000 units 09/16/24 09:00 09/24/24 08:52 Cholecalciferol 5,000 Units Tablet PO 5,000 units DAILY KELIN Administration Vitamin E 800 unit 09/16/24 09:00 09/24/24 08:58 Vitamin E 400 Unit Capsule PO 800 unit DAILY KELIN Administration Radiology Results: ITS Impressions Head CT 09/15/24 11:48 IMPRESSION: 1. 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 No acute intracranial process. 2. Age-related changes including moderate diffuse on loss and mild scattered white matter hypoattenuation consistent with chronic small vessel ischemic disease. Brain MRI 09/18/24 08:50 IMPRESSION: 1. Age-related changes in the brain. No acute intracranial process. 2. 1.3 x 1.2 x 0.9 cm T2 hyperintense intrasellar mass versus cystic lesion. 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 There is been no evident change in appearance of the pituitary on multiple prior CT studies dating back to thousand 17 which would argue against malignancy/metastases. Would recommend obtaining pre and postcontrast pituitary protocol MRI to distinguish solid versus cystic which would aid in narrowing the differential. Sella Turcica MRI 09/19/24 12:56 IMPRESSION: 1. 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 2. 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 Lumbar Puncture Fluoroscopy 09/19/24 14:00 IMPRESSION: 1. Successful fluoro-guided lumbar puncture. Chest X-Ray 09/24/24 07:39 Impression: Central pulmonary venous congestive change. Labs Labs: Laboratory Results - last 24 hr 09/25/24 04:42 WBC 7.6 RBC 3.32 L Hgb 10.0 L Hct 31.2 L MCV 94.0 MCH 30.1 MCHC 32.1 RDW 14.5 Plt Count 260 MPV 11.3 H Immature Gran % (Auto) 3.9 H Neut % (Auto) 50.6 Lymph % (Auto) 29.0 [place] % (Auto) 13.4 H Eos % (Auto) 2.2 Baso % (Auto) 0.9 Lymph # (Auto) 2.21 [place] # (Auto) 1.0 H Eos # (Auto) 0.2 Baso # (Auto) 0.1 Abs Immat Gran (auto) 0.30 H Absolute Neuts (auto) 3.9 Absolute Nucleated RBC 0.000 Nucleated RBC % 0.0 Sodium 131 L Potassium 4.5 Chloride 95 L Carbon Dioxide 33 H Anion Gap 3 L BUN 25 H Creatinine 0.59 L Estim Creat Clear Calc 77 Estimated GFR > 60 Glucose 123 H Calcium 8.2 L Total Bilirubin 0.3 AST 21 ALT 22 Alkaline Phosphatase 77 Total Protein 6.0 L Albumin 2.9 L
[2024-09-25] MEDS: CEFEPIME 2 GM/NS 50 ML 2 GM/50 ML BAG IVPB ×3 (09:43→23:46)
[2024-09-25] MEDS: PANTOPRAZOLE 40 MG TABLET PO (09:49)
[2024-09-25] MEDS: VITAMIN E 400 UNIT CAPSULE 800 UNIT PO (09:50)
[2024-09-25] MEDS: PREGABALIN (*CRX) 75 MG CAPSULE 150 MG PO ×2 (09:50→20:39)
[2024-09-25] MEDS: amLODIPine BESYLATE 10 MG TABLET PO (09:50)
[2024-09-25] MEDS: PRIMIDONE 50 MG TABLET 100 MG PO ×3 (09:50→17:26)
[2024-09-25] MEDS: VITAMIN B COMPLEX CAPSULE 1 CAP PO (09:51)
[2024-09-25] MEDS: BACLOFEN 5 MG TABLET PO ×3 (09:51→17:26)
[2024-09-25] MEDS: FUROSEMIDE 20 MG TABLET PO ×2 (09:51→17:26)
[2024-09-25] MEDS: guaiFENesin 12 HR 600 MG TABCR 1200 MG PO ×2 (09:51→17:26)
[2024-09-25] MEDS: ISOSORBIDE MONONITRATE 30 MG TAB.ER.24H PO (09:51)
[2024-09-25] MEDS: CHOLECALCIFEROL 5,000 UNITS TABLET 5000 UNITS PO (09:51)
[2024-09-25] MEDS: POTASSIUM CHLORIDE 10 MEQ ER TABLET PO (09:52)
[2024-09-25] MEDS: METOPROLOL TARTRATE 50 MG TAB 100 MG PO ×2 (09:52→20:38)
[2024-09-25] MEDS: LOSARTAN POTASSIUM 100 MG TABLET PO (09:52)
[2024-09-25] MEDS: MEMANTINE 5 MG TABLET PO ×2 (09:52→20:39)
[2024-09-25] MEDS: VANCOMYCIN 1,250 MG/NS 250 ML 1,250 MG/250 ML BAG 166.7 MG IVPB (13:45)
[2024-09-25 14:52] LABS: Vancomycin Trough 21.4 ug/mL (10.0-20.0)
[2024-09-25] MEDS: RIVAROXABAN 20 MG TABLET PO (17:26)
[2024-09-25] MEDS: ATORVASTATIN 10 MG TABLET PO (20:38)
[2024-09-26] VITALS (8 sets, daily range): BP systolic 113–171; BP diastolic 39–66; PULSE 87–107; RESP 16–18; TEMP 36.6–37.7; O2SAT 91–94
[2024-09-26] MEDS: AMPICILLIN 2 GM/NS 100 ML 2 GM/100 ML BAG IVPB ×3 (00:50→11:34)
[2024-09-26] MEDS: LORazepam INJ (*CRX) 2 MG/ML VIAL 0.5 MG IV PUSH ×2 (05:04→15:02)
[2024-09-26 06:18] LABS: Estimated CRCL calculation 81 ml/min; Estimated Glomerular Filt Rate > 60
--- NOTE | 2024-09-26 06:19 | PM.IMPN ---
Progress Note: A&P Assessment and Plan (1) AMS (altered mental status): Code(s): R41.82 - Altered mental status, unspecified Status: Acute Assessment and Plan: Patient presents with altered mental status. She has a normal baseline AOx3 with slow speech. 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 Patient presented with fevers on 09/15. LP performed 09/19 showing no RBCs and 1 WBCs with mostly lymphocytes. Gram stain showing rare WBC and no organisms. Glucose 97 and protein 51. Viral and bacterial meningitis unlikely but she was on abx prior to LP being performed so could be partially treated meningitis. Consider AMS related to polypharmacy. Consider catatonia. Symptoms seem to wax and wane - delirium? CSF HSV PCR negative. Acyclovir stopped. CSF bacterial cultures were NOT sent to [facility] (fungal cx sent); unable to determine if partially treated meningitis but felt less likely. Stop IV abx and monitor Primidone and Baclofen were cuts back. Started PT/OT/ST. ST recommended dropping her from Level 5 to Level 4 Pureed diet which was done. Discussed with neurology. He recommended continuing to wean primidone every 7 days. Scheduled IV Ativan for possible catatonia. Did have some improvement yesterday but worse today. ABG ordered but this was okay. Will back off on Ativan. Stop IV abx. (2) Sepsis: Qualifiers: Sepsis acute organ dysfunction status: unspecified Sepsis type: sepsis due to unspecified organism Qualified Code(s): A41.9 - Sepsis, unspecified organism Code(s): A41.9 - Sepsis, unspecified organism Status: Acute Assessment and Plan: Noted on admission with fevers, AMS and elevated white count. UTI has been ruled out. Blood cultures negative. Chest x-ray was clear on admission and repeat CXR clear on 09/18. Requiring O2 now. Repeat CXR 09/24 showing congestive changes so Lasix IV once given with good UOP No CSF cultures sent to [facility]. Stop abx and monitor. Continue intermittent IV Lasix to improve fluid status. (3) Atrial fibrillation with RVR: Code(s): I48.91 - Unspecified atrial fibrillation Status: Acute Assessment and Plan: Review of chart showing she has AFib and was on Xarelto on prior admissions. In the paper chart, the papers from the group home sheets only had 5 of 6 sheets. Suspect the 6th sheet listed additional medications (including Xarelto). RN will call group home to get a complete list of patient's medications. Restarted Xarelto (4) Hypertension: Code(s): I10 - Essential (primary) hypertension Status: Acute Assessment and Plan: Patient's blood pressure was reviewed on 09/26 Blood pressure with wide fluctuations. Hydralazine held. Will continue to monitor for now (5) Acute and chronic respiratory failure: Qualifiers: Respiratory failure complication: hypoxia Qualified Code(s): J96.21 - Acute and chronic respiratory failure with hypoxia Code(s): J96.20 - Acute and chronic respiratory failure, unspecified whether with hypoxia or hypercapnia Status: Acute Assessment and Plan: ABG in ER - pH of 7.46, pCO2 33.0, PO2 67.4, bicarb 23.0, O2 94.6%. Patient presumably wears oxygen at the facility but has been weaned to room air here Continue CPAP at night and with naps as she allows. (6) Obstructive sleep apnea: Code(s): G47.33 - Obstructive sleep apnea (adult) (pediatric) Status: Acute Assessment and Plan: Continue CPAP at night and with naps as she allows. (7) UTI (urinary tract infection): Qualifiers: Hematuria presence: without hematuria Urinary tract infection type: acute cystitis Qualified Code(s): N30.00 - Acute cystitis without hematuria Code(s): N39.0 - Urinary tract infection, site not specified Status: Resolved Assessment and Plan: UA is consistent with UTI. UCx collected. 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 Abx started. BCx and UCx negative. UTI ruled out. She is having urine retention and unable to tolerate the Delarosa removed 09/25/24. Plan for discharge with Delarosa (8) Tachycardia: Code(s): R00.0 - Tachycardia, unspecified Status: Resolved Assessment and Plan: Probably related to above. Heart rate better controlled. No alarms by tele so tele stopped. Plan DVT prophylaxis - Xarelto Code status -full Subjective Date/time seen: 09/26/24 06:19 Interval history: 73yo female with hx of chronic hyponatremia, anemia, Bipolar disorder, Chronic resp failure on home oxygen, GERD, epilepsy, and neurocognitive disorder who was originally discharged from [facility] with pneumonia, that presented back to the Emergency department with weakness, fever and altered mental status. Delarosa removed yesterday but found to be retaining urine so Delarosa replaced. Was up to the chair yesterday. Somnolent this morning but later was responding to the staff. Review of Systems Review of Systems: ROS unobtainable: Yes unobtainable due to mental status Exam Narrative: AF 99.1 149/58 88 18 93% 1L Gen - NARD Chest -chest clear anteriorly to quiet respirations. CV - RRR S1/S2 Abd - Soft, NT/ND, +BS. - Delarosa secured draining clear yellow urine. Ext - No right pedal edema. Left [id number] amputation. No right hip pain to palpation Neuro - somnolent. Psych - depressed affect Skin - Warm and dry Objective Data Vital Signs Vital Signs: Vital Signs - 24 hr 09/25/24 09:46 09/25/24 09:51 09/25/24 09:52 Temperature 98.1 F Pulse Rate 107 H 108 H Respiratory Rate 16 Blood Pressure 155/56 H Pulse Oximetry 95 95 Oxygen Delivery Nasal Cannula Oxygen Flow Rate 1 09/25/24 14:02 09/25/24 15:50 09/25/24 20:38 Temperature 97.4 F L Pulse Rate 76 93 Respiratory Rate 18 Blood Pressure 145/51 H Pulse Oximetry 97 92 Oxygen Delivery Nasal Cannula Oxygen Flow Rate 1 09/25/24 21:16 09/26/24 05:25 Temperature 98.3 F 99.1 F Pulse Rate 87 88 Respiratory Rate 18 18 Blood Pressure 146/54 H 149/58 H Pulse Oximetry 91 93 Oxygen Delivery Oxygen Flow Rate Intake/Output Intake/Output: Intake & Output 09/23/24 09/24/24 09/25/24 09/26/24 23:59 23:59 23:59 23:59 Intake Total 1570 2640 2321 550 Output Total 2350 3350 1300 1400 Balance -780 -710 1021 -850 Meds/Results Medications: Active Medications Generic Name Dose Route Start Last Admin Trade Name Freq PRN Reason Stop Dose Admin Acetaminophen 650 mg 09/19/24 09:14 Acetaminophen 650 Mg Suppository RECTAL Q6H PRN Mild Pain (1-3) or Fever Acetaminophen 650 mg 09/19/24 10:07 09/24/24 20:26 Acetaminophen 325 Mg Tablet PO 650 mg Q6H PRN Administration Mild Pain (1-3) or Fever Amlodipine Besylate 10 mg 09/16/24 09:00 09/25/24 09:50 Amlodipine Besylate 10 Mg Tablet PO 10 mg DAILY KELIN Administration Artificial Tears 1 drop 09/15/24 23:37 Artificial Tears Ophth Soln 15 Ml Bottle EACH EYE QID PRN Dry Eye(S) Atorvastatin Calcium 10 mg 09/16/24 00:25 09/25/24 20:38 Atorvastatin 10 Mg Tablet PO 10 mg HS KELIN Administration Baclofen 5 mg 09/22/24 09:00 09/25/24 17:26 Baclofen 5 Mg Tablet PO 5 mg TID KELIN Administration Dextrose 12.5 gm 09/15/24 12:45 Dextrose 50% 25 Gm/50 Ml Syringe IV PUSH PRN PRN Hypoglycemia Protocol Diclofenac Sodium 1 applic 09/15/24 23:37 Diclofenac Sodium 1% 100 Gm Gel (*Bkc) TOPICAL BID PRN moderate pain (scale score 5-6) Fluticasone Propionate 2 spray 09/22/24 16:37 Fluticasone Propionate 0.05% Na Spr 16 Gm Btl (*Bkc) NASAL DAILY PRN Nasal Congestion Furosemide 20 mg 09/16/24 09:00 09/25/24 17:26 Furosemide 20 Mg Tablet PO 20 mg BID KELIN Administration Glucagon 1 mg 09/15/24 12:45 Glucagon For Inj 1 Mg Vial IM PRN PRN Hypoglycemia Protocol Glucose 15 gm 09/15/24 12:45 Glucose Oral Gel 15 Gm Of Glucse In 37.5 Gm Tube PO PRN PRN Hypoglycemia Protocol Guaifenesin 1,200 mg 09/16/24 09:00 09/25/24 17:26 Guaifenesin 12 Hr 600 Mg Tabcr PO 1,200 mg BID KELIN Administration Hydralazine HCl 10 mg 09/18/24 10:11 Hydralazine Hcl 20 Mg/Ml Vial IV PUSH Q8H PRN Blood Pressure - High Dextrose 1,000 mls @ 100 mls/hr 09/15/24 12:45 Dextrose 5% 1,000 Ml IVPB PRN PRN Hypoglycemia Protocol Ampicillin Sodium 2 gm in 100 mls @ 200 mls/hr 09/19/24 17:00 09/26/24 04:25 Ampicillin 2 Gm/Ns 100 Ml IVPB 200 mls/hr Q4H KELIN Administration Cefepime HCl 2 gm in 50 mls @ 100 mls/hr 09/19/24 16:00 09/26/24 00:16 Maxipime 2 Gm/Ns 50 Ml IVPB Infused Q8H KELIN Infusion Vancomycin HCl 1,250 mg in 250 mls @ 166.667 mls/hr 09/26/24 21:00 Vancomycin 1,250 Mg/Ns 250 Ml IVPB Q24H KELIN Isosorbide Mononitrate 30 mg 09/16/24 09:00 09/25/24 09:51 Isosorbide Mononitrate 30 Mg Tab.Er.24h PO 30 mg DAILY KELIN Administration Levalbuterol HCl 1.25 mg 09/22/24 08:41 Levalbuterol Neb 1.25 Mg/3 Ml INHALATION Q6HRT PRN Shortness Of Breath Lidocaine 2 patch 09/16/24 09:00 09/25/24 10:05 Lidocaine 5% Patch TOPICAL Not Given DAILY KELIN Lorazepam 0.5 mg 09/24/24 22:00 09/26/24 05:04 Lorazepam Inj (*Crx) 2 Mg/Ml Vial IV PUSH 0.5 mg Q8HR KELIN Administration Losartan Potassium 100 mg 09/16/24 09:00 09/25/24 09:52 Losartan Potassium 100 Mg Tablet PO 100 mg DAILY KELIN Administration Memantine 5 mg 09/16/24 00:25 09/25/24 20:39 Memantine 5 Mg Tablet PO 5 mg Q12HR KELIN Administration Metoprolol Tartrate 100 mg 09/16/24 00:25 09/25/24 20:38 Metoprolol Tartrate 50 Mg Tab PO 100 mg Q12HR KELIN Administration Miscellaneous Information 0 each 09/25/24 00:01 Lyrica Renew Order If Still Needs Or Will Auto D/C XX 10/25/24 00:00 CLARIFY KELIN Ondansetron HCl 4 mg 09/15/24 12:45 Ondansetron Inj 4 Mg/2 Ml Vial IV PUSH Q4H PRN Nausea Pantoprazole Sodium 40 mg 09/16/24 09:00 09/25/24 09:49 Pantoprazole 40 Mg Tablet PO 40 mg DAILY KELIN Administration Polyethylene Glycol 17 gm 09/15/24 23:37 Polyethylene Glycol 3350 17 Gm Powd.Pack PO DAILY PRN Constipation Potassium Chloride 10 meq 09/16/24 09:00 09/25/24 09:52 Potassium Chloride 10 Meq Er Tablet PO 10 meq DAILY KELIN Administration Pregabalin 150 mg 09/16/24 00:25 09/25/24 20:39 Pregabalin (*Crx) 75 Mg Capsule PO 150 mg Q12HR KELIN Administration Primidone 100 mg 09/22/24 09:00 09/25/24 17:26 Primidone 50 Mg Tablet PO 100 mg TID KELIN Administration Rivaroxaban 20 mg 09/23/24 17:00 09/25/24 17:26 Rivaroxaban 20 Mg Tablet PO 20 mg DAILY@1700 KELIN Administration Sodium Chloride 2 spray 09/15/24 23:37 Saline 0.65% Gordo Soln 44 Ml Btl NASAL PRN PRN Congestion Vitamin B Complex 1 cap 09/16/24 09:00 09/25/24 09:51 Vitamin B Complex Capsule PO 1 cap QAM KELIN Administration Vitamin D 5,000 units 09/16/24 09:00 09/25/24 09:51 Cholecalciferol 5,000 Units Tablet PO 5,000 units DAILY KELIN Administration Vitamin E 800 unit 09/16/24 09:00 09/25/24 09:50 Vitamin E 400 Unit Capsule PO 800 unit DAILY KELIN Administration Radiology Results: ITS Impressions Head CT 09/15/24 11:48 IMPRESSION: 1. 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 No acute intracranial process. 2. Age-related changes including moderate diffuse on loss and mild scattered white matter hypoattenuation consistent with chronic small vessel ischemic disease. Brain MRI 09/18/24 08:50 IMPRESSION: 1. Age-related changes in the brain. No acute intracranial process. 2. 1.3 x 1.2 x 0.9 cm T2 hyperintense intrasellar mass versus cystic lesion. 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 There is been no evident change in appearance of the pituitary on multiple prior CT studies dating back to thousand 17 which would argue against malignancy/metastases. Would recommend obtaining pre and postcontrast pituitary protocol MRI to distinguish solid versus cystic which would aid in narrowing the differential. Sella Turcica MRI 09/19/24 12:56 IMPRESSION: 1. 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 2. 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 Lumbar Puncture Fluoroscopy 09/19/24 14:00 IMPRESSION: 1. Successful fluoro-guided lumbar puncture. Chest X-Ray 09/24/24 07:39 Impression: Central pulmonary venous congestive change. Labs Labs: Laboratory Results - last 24 hr 09/25/24 09/26/24 13:02 05:13 Creatinine 0.56 L Estim Creat Clear Calc 81 Estimated GFR > 60 Vancomycin Trough 21.4 H
[2024-09-26] MEDS: CEFEPIME 2 GM/NS 50 ML 2 GM/50 ML BAG IVPB ×2 (09:44→15:17)
[2024-09-26] MEDS: PRIMIDONE 50 MG TABLET 100 MG PO ×3 (09:46→17:20)
[2024-09-26] MEDS: VITAMIN E 400 UNIT CAPSULE 800 UNIT PO (09:49)
[2024-09-26] MEDS: CHOLECALCIFEROL 5,000 UNITS TABLET 5000 UNITS PO (09:49)
[2024-09-26] MEDS: BACLOFEN 5 MG TABLET PO ×3 (09:49→17:20)
[2024-09-26] MEDS: POTASSIUM CHLORIDE 10 MEQ ER TABLET PO (09:49)
[2024-09-26] MEDS: PREGABALIN (*CRX) 75 MG CAPSULE 150 MG PO (09:50)
[2024-09-26] MEDS: FUROSEMIDE 20 MG TABLET PO ×2 (09:50→17:20)
[2024-09-26] MEDS: LOSARTAN POTASSIUM 100 MG TABLET PO (09:50)
[2024-09-26] MEDS: PANTOPRAZOLE 40 MG TABLET PO (09:50)
[2024-09-26] MEDS: MEMANTINE 5 MG TABLET PO ×2 (09:50→22:14)
[2024-09-26] MEDS: VITAMIN B COMPLEX CAPSULE 1 CAP PO (09:50)
[2024-09-26] MEDS: ISOSORBIDE MONONITRATE 30 MG TAB.ER.24H PO (09:50)
[2024-09-26] MEDS: guaiFENesin 12 HR 600 MG TABCR 1200 MG PO ×2 (09:51→17:21)
[2024-09-26] MEDS: METOPROLOL TARTRATE 50 MG TAB 100 MG PO ×2 (09:51→22:15)
[2024-09-26] MEDS: amLODIPine BESYLATE 10 MG TABLET PO (09:51)
[2024-09-26 12:35] LABS: Basophils Absolute Auto 0.1 K/mm3 (0.0-0.1); Eosinophils Absolute Auto 0.2 K/mm3 (0-0.3); Hematocrit 31.4 % (37.0-47.0); Hemoglobin 10.1 g/dL (12.0-15.0); Immature Granulocyte Absolute 0.18 K/mm3 (0.00-0.031); Lymphocytes Absolute Auto 1.78 K/mm3 (0.9-3.2); Lymphocytes Percent Auto 29.6 % (18.3-44.2); Mean Corpuscular HGB Conc 32.2 g/dl (32-36); Mean Corpuscular Hemoglobin 30.8 pg (26-34); Mean Corpuscular Volume 95.7 fl (80-100); Mean Platelet Volume 11.5 fl (7.4-10.4); Monocytes Absolute Auto 0.9 K/mm3 (0.1-0.6); Monocytes Percent Auto 15.3 % (2.6-8.5); Neutrophils Absolute Auto 2.9 K/mm3 (1.3-6.7); Neutrophils Percent Auto 48.1 % (45.5-73.1); Platelet Count Result 251 k/mm3 (150-375); Red Blood Count 3.28 M/mm3 (4.2-5.4); Red Cell Distribution Width 15.4 % (11.5-14.5)
[2024-09-26 12:53] LABS: Alanine Aminotransferase 20 U/L (6-35); Alkaline Phosphatase 75 U/L (38-126); Anion Gap 6 mmol/L (4-12); Aspartate Amino Transferase 21 U/L (14-36); Bilirubin,Total 0.3 mg/dL (0.2-1.3); Blood Urea Nitrogen 22 mg/dL (7-17); Calcium 8.2 mg/dL (8.4-10.2); Carbon Dioxide 29 mmol/L (22-30); Chloride 97 mmol/L (98-107); Estimated CRCL calculation 84 ml/min; Estimated Glomerular Filt Rate > 60; Glucose 101 mg/dL (65-110); Potassium 4.4 mmol/L (3.4-5.0); Sodium 132 mmol/L (137-145)
[2024-09-26 14:57] LABS: Alveolar/Arterial O2 Gradient 73.3 mmHg; Base Excess ABG 2.5 mEq/l (+/-2.0); Device CPAP; Fractional Inspired Oxygen 28 %; HCO3 ABG 26.7 mEq/l (22.0-26.0); Modified Allen's Test Pass; Oxygen Content ABG 15.4 %vol (16.0-22.0); Oxygen Saturation ABG 96.1 % (95.0-100.0); Oxyhemoglobin 94.9 % THb (90.0-100.0); PCO2 ABG 40.1 mmHg (35.0-45.0); PO2 FiO2 Ratio Arterial Blood 2.82 %; Site Drawn LEFT RADIAL; Total Hemoglobin 11.5 g/dL (12.0-18.0); pH ABG 7.442 (7.350-7.450)
[2024-09-26 14:58] LABS: CPAP 15 cmH2O
[2024-09-26] MEDS: RIVAROXABAN 20 MG TABLET PO (17:20)
[2024-09-26 18:38] LABS: Lyme AB IgG, Immunoblot NO BANDS DETECTED; Lyme AB IgM, Immunoblot NO BANDS DETECTED
[2024-09-26] MEDS: ACETAMINOPHEN 325 MG TABLET 650 MG PO (22:14)
[2024-09-26] MEDS: LORazepam (*CRX) 0.5 MG TABLET PO (22:15)
[2024-09-26] MEDS: ATORVASTATIN 10 MG TABLET PO (22:15)
[2024-09-27] VITALS (7 sets, daily range): BP systolic 134–169; BP diastolic 49–60; PULSE 65–107; RESP 15–18; TEMP 36.2–37.1; O2SAT 90–99
[2024-09-27 00:04] LABS: VDRL Quantitative CSF NON-REACTIVE
[2024-09-27] MEDS: LORazepam (*CRX) 0.5 MG TABLET PO ×3 (05:08→21:15)
[2024-09-27] MEDS: amLODIPine BESYLATE 10 MG TABLET PO (08:44)
[2024-09-27] MEDS: PRIMIDONE 50 MG TABLET 100 MG PO ×3 (08:44→17:23)
[2024-09-27] MEDS: guaiFENesin 12 HR 600 MG TABCR 1200 MG PO ×2 (08:44→17:22)
[2024-09-27] MEDS: PREGABALIN (*CRX) 75 MG CAPSULE 150 MG PO ×2 (08:44→21:14)
[2024-09-27] MEDS: FUROSEMIDE 20 MG TABLET PO ×2 (08:44→17:23)
[2024-09-27] MEDS: VITAMIN B COMPLEX CAPSULE 1 CAP PO (08:45)
[2024-09-27] MEDS: VITAMIN E 400 UNIT CAPSULE 800 UNIT PO (08:45)
[2024-09-27] MEDS: METOPROLOL TARTRATE 50 MG TAB 100 MG PO ×2 (08:45→21:15)
[2024-09-27] MEDS: MEMANTINE 5 MG TABLET PO ×2 (08:45→21:14)
[2024-09-27] MEDS: CHOLECALCIFEROL 5,000 UNITS TABLET 5000 UNITS PO (08:45)
[2024-09-27] MEDS: LIDOCAINE 5% PATCH 2 PATCH TOPICAL (08:46)
[2024-09-27] MEDS: PANTOPRAZOLE 40 MG TABLET PO (08:46)
[2024-09-27] MEDS: ISOSORBIDE MONONITRATE 30 MG TAB.ER.24H PO (08:46)
[2024-09-27] MEDS: POTASSIUM CHLORIDE 10 MEQ ER TABLET PO (08:46)
[2024-09-27] MEDS: BACLOFEN 5 MG TABLET PO ×2 (08:46→17:23)
[2024-09-27] MEDS: LOSARTAN POTASSIUM 100 MG TABLET PO (08:46)
--- NOTE | 2024-09-27 09:21 | PM.IMPN ---
Progress Note: A&P Assessment and Plan (1) Altered mental status: Code(s): R41.82 - Altered mental status, unspecified Status: Acute (2) Sepsis: Qualifiers: Sepsis acute organ dysfunction status: unspecified Sepsis type: methicillin resistant Staphylococcus aureus Qualified Code(s): A41.02 - Sepsis due to Methicillin resistant Staphylococcus aureus Code(s): A41.9 - Sepsis, unspecified organism Status: Acute Plan (1) AMS (altered mental status): Code(s): R41.82 - Altered mental status, unspecified Status: Acute Assessment and Plan: Patient presents with altered mental status. She has a normal baseline AOx3 with slow speech. 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 Patient presented with fevers on 09/15. LP performed 09/19 showing no RBCs and 1 WBCs with mostly lymphocytes. Gram stain showing rare WBC and no organisms. Glucose 97 and protein 51. Viral and bacterial meningitis unlikely but she was on abx prior to LP being performed so could be partially treated meningitis. Consider AMS related to polypharmacy. Consider catatonia. Symptoms seem to wax and wane - delirium? CSF HSV PCR negative. Acyclovir stopped. CSF bacterial cultures were NOT sent to [facility] (fungal cx sent); unable to determine if partially treated meningitis but felt less likely. Stop IV abx and monitor Primidone and Baclofen were cuts back. Started PT/OT/ST. ST recommended dropping her from Level 5 to Level 4 Pureed diet which was done. Discussed with neurology. He recommended continuing to wean primidone every 7 days. Scheduled IV Ativan for possible catatonia. Did have some improvement yesterday but worse today. ABG ordered but this was okay. Will back off on Ativan. Stop IV abx. (2) Sepsis: Qualifiers: Sepsis acute organ dysfunction status: unspecified Sepsis type: sepsis due to unspecified organism Qualified Code(s): A41.9 - Sepsis, unspecified organism Code(s): A41.9 - Sepsis, unspecified organism Status: Acute Assessment and Plan: Noted on admission with fevers, AMS and elevated white count. UTI has been ruled out. Blood cultures negative. Chest x-ray was clear on admission and repeat CXR clear on 09/18. Requiring O2 now. Repeat CXR 09/24 showing congestive changes so Lasix IV once given with good UOP No CSF cultures sent to [facility]. Stop abx and monitor. Continue intermittent IV Lasix to improve fluid status. (3) Atrial fibrillation with RVR: Code(s): I48.91 - Unspecified atrial fibrillation Status: Acute Assessment and Plan: Review of chart showing she has AFib and was on Xarelto on prior admissions. In the paper chart, the papers from the care home sheets only had 5 of 6 sheets. Suspect the 6th sheet listed additional medications (including Xarelto). RN will call care home to get a complete list of patient's medications. Restarted Xarelto Chronic hyponatremia Stable (4) Hypertension: Code(s): I10 - Essential (primary) hypertension Status: Acute Assessment and Plan: Patient's blood pressure was reviewed on 09/26 Blood pressure with wide fluctuations. Hydralazine held. Will continue to monitor for now (5) Acute and chronic respiratory failure: Qualifiers: Respiratory failure complication: hypoxia Qualified Code(s): J96.21 - Acute and chronic respiratory failure with hypoxia Code(s): J96.20 - Acute and chronic respiratory failure, unspecified whether with hypoxia or hypercapnia Status: Acute Assessment and Plan: ABG in ER - pH of 7.46, pCO2 33.0, PO2 67.4, bicarb 23.0, O2 94.6%. Patient presumably wears oxygen at the facility but has been weaned to room air here Continue CPAP at night and with naps as she allows. (6) Obstructive sleep apnea: Code(s): G47.33 - Obstructive sleep apnea (adult) (pediatric) Status: Acute Assessment and Plan: Continue CPAP at night and with naps as she allows. (7) UTI (urinary tract infection): Qualifiers: Hematuria presence: without hematuria Urinary tract infection type: acute cystitis Qualified Code(s): N30.00 - Acute cystitis without hematuria Code(s): N39.0 - Urinary tract infection, site not specified Status: Resolved Assessment and Plan: UA is consistent with UTI. UCx collected. 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 Abx started. BCx and UCx negative. UTI ruled out. She is having urine retention and unable to tolerate the Delarosa removed 09/25/24. Plan for discharge with Delarosa (8) Tachycardia: Code(s): R00.0 - Tachycardia, unspecified Status: Resolved Assessment and Plan: Probably related to above. Heart rate better controlled. No alarms by tele so tele stopped. Subjective Date/time seen: 09/27/24 09:21 Interval history: I saw examined patient in presents of patient's nurse. Patient is lethargic, able to answer questions, appetite is improving. Patient is afebrile, blood pressure stable, labs reviewed, Labs reviewed Exam Narrative: GENERAL: Lethargic, ill-appearing in no acute distress. Well-nourished. - EYES: EOMI. Anicteric. - HENT: Moist mucous membranes. - LUNGS: Clear to auscultation bilaterally, no wheezing, rhonchi, or rales. - CARDIOVASCULAR: Regular rate and rhythm. No murmur. No JVD. - ABDOMEN: Soft, non-tender and non-distended. No palpable masses. - EXTREMITIES: No edema. Peripheral pulses 2+. Non-tender. - NEUROLOGIC: No focal neurological deficits. CN II-XII grossly intact. General weakness - PSYCHIATRIC: Awake, Alert and not oriented x 3. Flat mood and affect. - SKIN: No rashes or lesions. Warm. - LYMPH: No cervical lymphadenopathy. Objective Data Vital Signs Vital Signs: Vital Signs - 24 hr 09/26/24 09:41 09/26/24 09:49 09/26/24 09:51 Temperature 97.8 F Pulse Rate 106 H 106 H Respiratory Rate 16 Blood Pressure 171/66 H Pulse Oximetry 92 92 Oxygen Delivery Room Air 09/26/24 14:21 09/26/24 14:48 09/26/24 20:00 Temperature 98.6 F Pulse Rate 87 88 Respiratory Rate 18 17 Blood Pressure 113/39 L Pulse Oximetry 93 94 91 Oxygen Delivery Autopap Room Air 09/26/24 20:12 09/26/24 20:52 09/27/24 05:58 Temperature 99.8 F H 98.8 F Pulse Rate 107 H 86 Respiratory Rate 18 18 Blood Pressure 144/54 H 158/53 H Pulse Oximetry 91 90 Oxygen Delivery Room Air 09/27/24 08:45 Temperature Pulse Rate 88 Respiratory Rate Blood Pressure Pulse Oximetry Oxygen Delivery Intake/Output Intake/Output: Intake & Output 09/24/24 09/25/24 09/26/24 09/27/24 23:59 23:59 23:59 23:59 Intake Total 2640 2321 1118 Output Total 3350 1300 3916 671 Balance -710 2511 -446 -553 Meds/Results Medications: Active Medications Generic Name Dose Route Start Last Admin Trade Name Freq PRN Reason Stop Dose Admin Acetaminophen 650 mg 09/19/24 09:14 Acetaminophen 650 Mg Suppository RECTAL Q6H PRN Mild Pain (1-3) or Fever Acetaminophen 650 mg 09/19/24 10:07 09/26/24 22:14 Acetaminophen 325 Mg Tablet PO 650 mg Q6H PRN Administration Mild Pain (1-3) or Fever Amlodipine Besylate 10 mg 09/16/24 09:00 09/27/24 08:44 Amlodipine Besylate 10 Mg Tablet PO 10 mg DAILY KELIN Administration Artificial Tears 1 drop 09/15/24 23:37 Artificial Tears Ophth Soln 15 Ml Bottle EACH EYE QID PRN Dry Eye(S) Atorvastatin Calcium 10 mg 09/16/24 00:25 09/26/24 22:15 Atorvastatin 10 Mg Tablet PO 10 mg HS KELIN Administration Baclofen 5 mg 09/26/24 17:00 09/27/24 08:46 Baclofen 5 Mg Tablet PO 5 mg BID KELIN Administration Dextrose 12.5 gm 09/15/24 12:45 Dextrose 50% 25 Gm/50 Ml Syringe IV PUSH PRN PRN Hypoglycemia Protocol Diclofenac Sodium 1 applic 09/15/24 23:37 Diclofenac Sodium 1% 100 Gm Gel (*Bkc) TOPICAL BID PRN moderate pain (scale score 5-6) Fluticasone Propionate 2 spray 09/22/24 16:37 Fluticasone Propionate 0.05% Na Spr 16 Gm Btl (*Bkc) NASAL DAILY PRN Nasal Congestion Furosemide 20 mg 09/16/24 09:00 09/27/24 08:44 Furosemide 20 Mg Tablet PO 20 mg BID KELIN Administration Glucagon 1 mg 09/15/24 12:45 Glucagon For Inj 1 Mg Vial IM PRN PRN Hypoglycemia Protocol Glucose 15 gm 09/15/24 12:45 Glucose Oral Gel 15 Gm Of Glucse In 37.5 Gm Tube PO PRN PRN Hypoglycemia Protocol Guaifenesin 1,200 mg 09/16/24 09:00 09/27/24 08:44 Guaifenesin 12 Hr 600 Mg Tabcr PO 1,200 mg BID KELIN Administration Hydralazine HCl 10 mg 09/18/24 10:11 Hydralazine Hcl 20 Mg/Ml Vial IV PUSH Q8H PRN Blood Pressure - High Dextrose 1,000 mls @ 100 mls/hr 09/15/24 12:45 Dextrose 5% 1,000 Ml IVPB PRN PRN Hypoglycemia Protocol Isosorbide Mononitrate 30 mg 09/16/24 09:00 09/27/24 08:46 Isosorbide Mononitrate 30 Mg Tab.Er.24h PO 30 mg DAILY KELIN Administration Levalbuterol HCl 1.25 mg 09/22/24 08:41 Levalbuterol Neb 1.25 Mg/3 Ml INHALATION Q6HRT PRN Shortness Of Breath Lidocaine 2 patch 09/16/24 09:00 09/27/24 08:46 Lidocaine 5% Patch TOPICAL 2 patch DAILY KELIN Administration Lorazepam 0.5 mg 09/26/24 21:00 09/27/24 05:08 Lorazepam (*Crx) 0.5 Mg Tablet PO 0.5 mg Q8H KELIN Administration Losartan Potassium 100 mg 09/16/24 09:00 09/27/24 08:46 Losartan Potassium 100 Mg Tablet PO 100 mg DAILY KELIN Administration Memantine 5 mg 09/16/24 00:25 09/27/24 08:45 Memantine 5 Mg Tablet PO 5 mg Q12HR KELIN Administration Metoprolol Tartrate 100 mg 09/16/24 00:25 09/27/24 08:45 Metoprolol Tartrate 50 Mg Tab PO 100 mg Q12HR KELIN Administration Ondansetron HCl 4 mg 09/15/24 12:45 Ondansetron Inj 4 Mg/2 Ml Vial IV PUSH Q4H PRN Nausea Pantoprazole Sodium 40 mg 09/16/24 09:00 09/27/24 08:46 Pantoprazole 40 Mg Tablet PO 40 mg DAILY KELIN Administration Polyethylene Glycol 17 gm 09/15/24 23:37 Polyethylene Glycol 3350 17 Gm Powd.Pack PO DAILY PRN Constipation Potassium Chloride 10 meq 09/16/24 09:00 09/27/24 08:46 Potassium Chloride 10 Meq Er Tablet PO 10 meq DAILY KELIN Administration Pregabalin 150 mg 09/16/24 00:25 09/27/24 08:44 Pregabalin (*Crx) 75 Mg Capsule PO 150 mg Q12HR KELIN Administration Primidone 100 mg 09/22/24 09:00 09/27/24 08:44 Primidone 50 Mg Tablet PO 100 mg TID KELIN Administration Rivaroxaban 20 mg 09/23/24 17:00 09/26/24 17:20 Rivaroxaban 20 Mg Tablet PO 20 mg DAILY@1700 KELIN Administration Sodium Chloride 2 spray 09/15/24 23:37 Saline 0.65% Gordo Soln 44 Ml Btl NASAL PRN PRN Congestion Vitamin B Complex 1 cap 09/16/24 09:00 09/27/24 08:45 Vitamin B Complex Capsule PO 1 cap QAM KELIN Administration Vitamin D 5,000 units 09/16/24 09:00 09/27/24 08:45 Cholecalciferol 5,000 Units Tablet PO 5,000 units DAILY KELIN Administration Vitamin E 800 unit 09/16/24 09:00 09/27/24 08:45 Vitamin E 400 Unit Capsule PO 800 unit DAILY KELIN Administration Radiology Results: ITS Impressions Head CT 09/15/24 11:48 IMPRESSION: 1. 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 No acute intracranial process. 2. Age-related changes including moderate diffuse on loss and mild scattered white matter hypoattenuation consistent with chronic small vessel ischemic disease. Brain MRI 09/18/24 08:50 IMPRESSION: 1. Age-related changes in the brain. No acute intracranial process. 2. 1.3 x 1.2 x 0.9 cm T2 hyperintense intrasellar mass versus cystic lesion. 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 There is been no evident change in appearance of the pituitary on multiple prior CT studies dating back to thousand 17 which would argue against malignancy/metastases. Would recommend obtaining pre and postcontrast pituitary protocol MRI to distinguish solid versus cystic which would aid in narrowing the differential. Sella Turcica MRI 09/19/24 12:56 IMPRESSION: 1. 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 2. 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 Lumbar Puncture Fluoroscopy 09/19/24 14:00 IMPRESSION: 1. Successful fluoro-guided lumbar puncture. Chest X-Ray 09/24/24 07:39 Impression: Central pulmonary venous congestive change. Labs Labs: Laboratory Results - last 24 hr 09/19/24 09/26/24 09/26/24 13:14 05:10 14:44 WBC 6.0 RBC 3.28 L Hgb 10.1 L Hct 31.4 L MCV 95.7 MCH 30.8 MCHC 32.2 RDW 15.4 H Plt Count 251 MPV 11.5 H Immature Gran % (Auto) 3.0 H Neut % (Auto) 48.1 Lymph % (Auto) 29.6 Edgar % (Auto) 15.3 H Eos % (Auto) 3.0 Baso % (Auto) 1.0 Lymph # (Auto) 1.78 Edgar # (Auto) 0.9 H Eos # (Auto) 0.2 Baso # (Auto) 0.1 Abs Immat Gran (auto) 0.18 H Absolute Neuts (auto) 2.9 Absolute Nucleated RBC 0.000 Nucleated RBC % 0.0 Puncture Site Left radial ABG pH 7.442 ABG pCO2 40.1 ABG pO2 79.0 L ABG PO2/FiO2 Ratio 2.82 ABG HCO3 26.7 H ABG O2 Saturation 96.1 ABG O2 Content 15.4 L ABG Base Excess 2.5 A-a Gradient 73.3 Oxyhemoglobin 94.9 Total Hemoglobin 11.5 L O2 Delivery Device Cpap O2 Liters/Min 2.0 FiO2 28 CPAP 15 Sodium 132 L Potassium 4.4 Chloride 97 L Carbon Dioxide 29 Anion Gap 6 BUN 22 H Creatinine 0.54 L Estim Creat Clear Calc 84 Estimated GFR > 60 Glucose 101 Calcium 8.2 L Total Bilirubin 0.3 AST 21 ALT 20 Alkaline Phosphatase 75 Total Protein 6.0 L Albumin 3.0 L CSF VDRL Non-reactive CSF Lyme IgG (Immblot) No bands detected CSF Lyme IgM (Immblot) No bands detected
--- NOTE | 2024-09-27 10:08 | PCNFU ---
Nutrition Follow-Up Complete: Severe protein calorie malnutrition related to acute loss of appetite, as evidenced by intakes <50% needs >5 days; weight loss -7%/2 weeks. Goal: Improve PO intake to at least 50% meals and supplements Patient is not meeting goal. We will continue current goal. Pt current nutrition is Pureed,Level 4/Heart Healthy with Ensure Enlive and Nutritional Ice Cream. Last recorded weight is 86.5 kg, no new weight to report. Bowel Motility:+BM reported 3/4 Labs Reviewed:Cr 0.56, BUN 22, Na 132, Hct 31.4, Hgb 10.1 Meds Noted: Vit D, Lasix, B complex, Vit E Skin: WNL Additional Notes: Patient remains on a Pureed, Level 4/heart healthy diet. Patient is a feeder. Poor po intake reported < 25% of meals. Diet supplements are being provided of Ensure Enlive (350 kcal/20 gm protein) and Nutritional Ice Cream (300 kcal and 9 gm protein). PO intake encouraged. Agree with diet orders. Monitoring intakes, weights, labs, output, meds, chewing ability, supplement tolerance, plan of care Follow up in 5 days
[2024-09-27 10:15] LABS: IgG Index, CSF 0.48
[2024-09-27 10:24] LABS: Synthesis Rate IgG, CSF -2.1
[2024-09-27 10:25] LABS: Albumin, CSF 14.2; IgG, CSF 1.8; Immunoglobulin G, Serum 724
[2024-09-27 14:23] LABS: Basophils Absolute Auto 0.1 K/mm3 (0.0-0.1); Basophils Percent Auto 0.5 % (0.2-1.2); Eosinophils Absolute Auto 0.1 K/mm3 (0-0.3); Eosinophils Percent Auto 1.5 % (0-4.4); Hematocrit 33.6 % (37.0-47.0); Hemoglobin 11.2 g/dL (12.0-15.0); Immature Granulocyte Percent A 2.1 % (0-0.5); Lymphocytes Absolute Auto 1.48 K/mm3 (0.9-3.2); Lymphocytes Percent Auto 15.6 % (18.3-44.2); Mean Corpuscular HGB Conc 33.3 g/dl (32-36); Mean Corpuscular Hemoglobin 31.5 pg (26-34); Mean Corpuscular Volume 94.4 fl (80-100); Mean Platelet Volume 10.9 fl (7.4-10.4); Monocytes Absolute Auto 0.8 K/mm3 (0.1-0.6); Monocytes Percent Auto 8.8 % (2.6-8.5); Neutrophils Absolute Auto 6.8 K/mm3 (1.3-6.7); Neutrophils Percent Auto 71.5 % (45.5-73.1); Platelet Count Result 273 k/mm3 (150-375); Red Blood Count 3.56 M/mm3 (4.2-5.4); Red Cell Distribution Width 15.6 % (11.5-14.5); White Blood Count 9.5 K/mm3 (4.5-10.0)
[2024-09-27 14:40] LABS: Alanine Aminotransferase 20 U/L (6-35); Albumin Level 2.9 g/dL (3.5-5.1); Alkaline Phosphatase 88 U/L (38-126); Anion Gap 9 mmol/L (4-12); Aspartate Amino Transferase 20 U/L (14-36); Bilirubin,Total 0.3 mg/dL (0.2-1.3); Blood Urea Nitrogen 23 mg/dL (7-17); Calcium 8.2 mg/dL (8.4-10.2); Carbon Dioxide 26 mmol/L (22-30); Chloride 93 mmol/L (98-107); Estimated CRCL calculation 88 ml/min; Estimated Glomerular Filt Rate > 60; Glucose 204 mg/dL (65-110); Potassium 4.9 mmol/L (3.4-5.0); Sodium 128 mmol/L (137-145)
[2024-09-27] MEDS: RIVAROXABAN 20 MG TABLET PO (17:23)
[2024-09-27] MEDS: ACETAMINOPHEN 325 MG TABLET 650 MG PO (21:13)
[2024-09-27] MEDS: ATORVASTATIN 10 MG TABLET PO (21:15)
[2024-09-28] VITALS (10 sets, daily range): BP systolic 139–185; BP diastolic 47–76; PULSE 73–84; RESP 16–18; TEMP 36.1–36.9; O2SAT 93–97
[2024-09-28 04:23] LABS: Albumin, Serum 2.8 g/dL (3.6-5.1); Myelin Basic Protein, CSF <2.0 mcg/L (< OR = 4.0); Oligoclonal Bands (IgG), CSF ABSENT (ABSENT)
[2024-09-28] MEDS: LORazepam (*CRX) 0.5 MG TABLET PO ×3 (06:08→21:21)
--- NOTE | 2024-09-28 07:55 | P.PNIM_ITS ---
Progress Note: A&P Assessment and Plan (1) Altered mental status: Code(s): R41.82 - Altered mental status, unspecified Status: Acute (2) Sepsis: Qualifiers: Sepsis acute organ dysfunction status: unspecified Sepsis type: methicillin resistant Staphylococcus aureus Qualified Code(s): A41.02 - Sepsis due to Methicillin resistant Staphylococcus aureus Code(s): A41.9 - Sepsis, unspecified organism Status: Acute Plan (1) AMS (altered mental status): Code(s): R41.82 - Altered mental status, unspecified Status: Acute Assessment and Plan: Patient presents with altered mental status. She has a normal baseline AOx3 with slow speech. 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 Patient presented with fevers on 09/15. LP performed 09/19 showing no RBCs and 1 WBCs with mostly lymphocytes. Gram stain showing rare WBC and no organisms. Glucose 97 and protein 51. Viral and bacterial meningitis unlikely but she was on abx prior to LP being performed so could be partially treated meningitis. Consider AMS related to polypharmacy. Consider catatonia. Symptoms seem to wax and wane - delirium? CSF HSV PCR negative. Acyclovir stopped. CSF bacterial cultures were NOT sent to [facility] (fungal cx sent); unable to determine if partially treated meningitis but felt less likely. Stop IV abx and monitor Primidone and Baclofen were cuts back. mental status is improving Started PT/OT/ST. ST recommended dropping her from Level 5 to Level 4 Pureed diet which was done. Discussed with neurology. He recommended continuing to wean primidone every 7 days. Scheduled IV Ativan for possible catatonia. Did have some improvement yesterday but worse today. ABG ordered but this was okay. back off on Ativan. Stop IV abx. 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 p.o. per neurologist recommendation Discontinue furosemide 20 mg b.i.d. p.o. Gentle IV fluid with normal saline 75 mL/hour Patient cannot tolerate diet Sepsis: Qualifiers: Sepsis acute organ dysfunction status: unspecified Sepsis type: sepsis due to unspecified organism Qualified Code(s): A41.9 - Sepsis, unspecified organism Code(s): A41.9 - Sepsis, unspecified organism Status: Acute Assessment and Plan: Noted on admission with fevers, AMS and elevated white count. UTI has been ruled out. Blood cultures negative. Chest x-ray was clear on admission and repeat CXR clear on 09/18. Requiring O2 now. Repeat CXR 09/24 showing congestive changes so Lasix IV once given with good UOP No CSF cultures sent to [facility]. Stop abx and monitor. White blood cell within normal limit, patient is afebrile, Atrial fibrillation with RVR: Code(s): I48.91 - Unspecified atrial fibrillation Status: Acute Assessment and Plan: Review of chart showing she has AFib and was on Xarelto on prior admissions. In the paper chart, the papers from the skilled nursing sheets only had 5 of 6 sheets. Suspect the 6th sheet listed additional medications (including Xarelto). RN will call skilled nursing to get a complete list of patient's medications. Restarted Xarelto Hypertension: Code(s): I10 - Essential (primary) hypertension Status: Acute Assessment and Plan: Patient's blood pressure was reviewed on 09/26 Blood pressure with wide fluctuations. Hydralazine held. continue to monitor for now Acute and chronic respiratory failure: Qualifiers: Respiratory failure complication: hypoxia Qualified Code(s): J96.21 - Acute and chronic respiratory failure with hypoxia Code(s): J96.20 - Acute and chronic respiratory failure, unspecified whether with hypoxia or hypercapnia Status: Acute Assessment and Plan: ABG in ER - pH of 7.46, pCO2 33.0, PO2 67.4, bicarb 23.0, O2 94.6%. Patient presumably wears oxygen at the facility but has been weaned to room air here Continue CPAP at night and with naps as she allows. Obstructive sleep apnea: Code(s): G47.33 - Obstructive sleep apnea (adult) (pediatric) Status: Acute Assessment and Plan: Continue CPAP at night and with naps as she allows. UTI (urinary tract infection): Qualifiers: Hematuria presence: without hematuria Urinary tract infection type: acute cystitis Qualified Code(s): N30.00 - Acute cystitis without hematuria Code(s): N39.0 - Urinary tract infection, site not specified Status: Resolved Assessment and Plan: UA is consistent with UTI. UCx collected. 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 Abx started. BCx and UCx negative. UTI ruled out. She is having urine retention and unable to tolerate the Delarosa removed 09/25/24. Plan for discharge with Delarosa (8) Tachycardia: Code(s): R00.0 - Tachycardia, unspecified Status: Resolved Assessment and Plan: Probably related to above. Heart rate better controlled. No alarms by tele so tele stopped. I discussed case with Dr. Moran on the phone, he also considers the patient has severe dementia. Patient prognosis is poor, I have tried to reach to patient's family and left message to patient's Obed. I needed discussed with patient family above patient goal of care Subjective Date/time seen: 09/28/24 07:55 Interval history: I saw examined patient, patient is arousable, but very drowsy. Unable to answer questions. Patient does not have obvious distress. per nurse report, patient has no appetite today, did not eat anything today Patient is afebrile, blood pressure stable, labs reviewed, Labs reviewed Exam Narrative: GENERAL: Lethargic, ill-appearing in no acute distress. Well-nourished. - EYES: EOMI. Anicteric. - HENT: Dry mucous membranes. - LUNGS: Clear to auscultation bilateral ly, no wheezing, rhonchi, or rales. - CARDIOVASCULAR: Regular rate and rhyth m. No murmur. No JVD. - ABDOMEN: Soft, non-tender and non-dist ended. No palpable masses. - EXTREMITIES: No edema. Peripheral puls es 2+. Non-tender. - NEUROLOGIC: No focal neurological defi cits. CN II-XII grossly intact. General weakness - PSYCHIATRIC: Somnolent, arousable, an d not oriented x 3. Flat mood and affect. - SKIN: No rashes or lesions. Warm. - LYMPH: No cervical lymphadenopathy. Objective Data Vital Signs Vital Signs: Vital Signs - 24 hr 09/27/24 08:45 09/27/24 08:46 09/27/24 14:39 Temperature 97.2 F L Pulse Rate 88 88 Respiratory Rate 18 18 Blood Pressure 169/60 H Pulse Oximetry 93 99 Oxygen Delivery Nasal Cannula Oxygen Flow Rate 2 09/27/24 21:06 09/27/24 21:15 09/27/24 22:23 Temperature 98.5 F Pulse Rate 107 H 107 H Respiratory Rate 18 Blood Pressure 134/49 L Pulse Oximetry 93 Oxygen Delivery Room Air Oxygen Flow Rate 09/27/24 23:10 09/27/24 23:10 09/28/24 06:00 Temperature 98.5 F Pulse Rate 65 77 Respiratory Rate 15 18 Blood Pressure 166/47 H Pulse Oximetry 97 97 97 Oxygen Delivery Autopap CPAP Oxygen Flow Rate 2 Intake/Output Intake/Output: Intake & Output 09/25/24 09/26/24 09/27/24 09/28/24 23:59 23:59 23:59 23:59 Intake Total 2321 1118 472 800 Output Total 1300 2000 1926 2200 Balance 5952 -102 -0403 -8336 Meds/Results Medications: Active Medications Generic Name Dose Route Start Last Admin Trade Name Freq PRN Reason Stop Dose Admin Acetaminophen 650 mg 09/19/24 09:14 Acetaminophen 650 Mg Suppository RECTAL Q6H PRN Mild Pain (1-3) or Fever Acetaminophen 650 mg 09/19/24 10:07 09/27/24 21:13 Acetaminophen 325 Mg Tablet PO 650 mg Q6H PRN Administration Mild Pain (1-3) or Fever Amlodipine Besylate 10 mg 09/16/24 09:00 09/27/24 08:44 Amlodipine Besylate 10 Mg Tablet PO 10 mg DAILY KELIN Administration Artificial Tears 1 drop 09/15/24 23:37 Artificial Tears Ophth Soln 15 Ml Bottle EACH EYE QID PRN Dry Eye(S) Atorvastatin Calcium 10 mg 09/16/24 00:25 09/27/24 21:15 Atorvastatin 10 Mg Tablet PO 10 mg HS KELIN Administration Baclofen 5 mg 09/26/24 17:00 09/27/24 17:23 Baclofen 5 Mg Tablet PO 5 mg BID KELIN Administration Dextrose 12.5 gm 09/15/24 12:45 Dextrose 50% 25 Gm/50 Ml Syringe IV PUSH PRN PRN Hypoglycemia Protocol Diclofenac Sodium 1 applic 09/15/24 23:37 Diclofenac Sodium 1% 100 Gm Gel (*Bkc) TOPICAL BID PRN moderate pain (scale score 5-6) Fluticasone Propionate 2 spray 09/22/24 16:37 Fluticasone Propionate 0.05% Na Spr 16 Gm Btl (*Bkc) NASAL DAILY PRN Nasal Congestion Furosemide 20 mg 09/16/24 09:00 09/27/24 17:23 Furosemide 20 Mg Tablet PO 20 mg BID KELIN Administration Glucagon 1 mg 09/15/24 12:45 Glucagon For Inj 1 Mg Vial IM PRN PRN Hypoglycemia Protocol Glucose 15 gm 09/15/24 12:45 Glucose Oral Gel 15 Gm Of Glucse In 37.5 Gm Tube PO PRN PRN Hypoglycemia Protocol Guaifenesin 1,200 mg 09/16/24 09:00 09/27/24 17:22 Guaifenesin 12 Hr 600 Mg Tabcr PO 1,200 mg BID KELIN Administration Hydralazine HCl 10 mg 09/18/24 10:11 Hydralazine Hcl 20 Mg/Ml Vial IV PUSH Q8H PRN Blood Pressure - High Dextrose 1,000 mls @ 100 mls/hr 09/15/24 12:45 Dextrose 5% 1,000 Ml IVPB PRN PRN Hypoglycemia Protocol Isosorbide Mononitrate 30 mg 09/16/24 09:00 09/27/24 08:46 Isosorbide Mononitrate 30 Mg Tab.Er.24h PO 30 mg DAILY KELIN Administration Levalbuterol HCl 1.25 mg 09/22/24 08:41 Levalbuterol Neb 1.25 Mg/3 Ml INHALATION Q6HRT PRN Shortness Of Breath Lidocaine 2 patch 09/16/24 09:00 09/27/24 08:46 Lidocaine 5% Patch TOPICAL 2 patch DAILY KELIN Administration Lorazepam 0.5 mg 09/26/24 21:00 09/28/24 06:08 Lorazepam (*Crx) 0.5 Mg Tablet PO 0.5 mg Q8H KELIN Administration Losartan Potassium 100 mg 09/16/24 09:00 09/27/24 08:46 Losartan Potassium 100 Mg Tablet PO 100 mg DAILY KELIN Administration Memantine 5 mg 09/16/24 00:25 09/27/24 21:14 Memantine 5 Mg Tablet PO 5 mg Q12HR KELIN Administration Metoprolol Tartrate 100 mg 09/16/24 00:25 09/27/24 21:15 Metoprolol Tartrate 50 Mg Tab PO 100 mg Q12HR KELIN Administration Ondansetron HCl 4 mg 09/15/24 12:45 Ondansetron Inj 4 Mg/2 Ml Vial IV PUSH Q4H PRN Nausea Pantoprazole Sodium 40 mg 09/16/24 09:00 09/27/24 08:46 Pantoprazole 40 Mg Tablet PO 40 mg DAILY KELIN Administration Polyethylene Glycol 17 gm 09/15/24 23:37 Polyethylene Glycol 3350 17 Gm Powd.Pack PO DAILY PRN Constipation Potassium Chloride 10 meq 09/16/24 09:00 09/27/24 08:46 Potassium Chloride 10 Meq Er Tablet PO 10 meq DAILY KELIN Administration Pregabalin 150 mg 09/16/24 00:25 09/27/24 21:14 Pregabalin (*Crx) 75 Mg Capsule PO 150 mg Q12HR KELIN Administration Primidone 100 mg 09/22/24 09:00 09/27/24 17:23 Primidone 50 Mg Tablet PO 100 mg TID KELIN Administration Rivaroxaban 20 mg 09/23/24 17:00 09/27/24 17:23 Rivaroxaban 20 Mg Tablet PO 20 mg DAILY@1700 KELIN Administration Sodium Chloride 2 spray 09/15/24 23:37 Saline 0.65% [place] Soln 44 Ml Btl NASAL PRN PRN Congestion Vitamin B Complex 1 cap 09/16/24 09:00 09/27/24 08:45 Vitamin B Complex Capsule PO 1 cap QAM KELIN Administration Vitamin D 5,000 units 09/16/24 09:00 09/27/24 08:45 Cholecalciferol 5,000 Units Tablet PO 5,000 units DAILY KELIN Administration Vitamin E 800 unit 09/16/24 09:00 09/27/24 08:45 Vitamin E 400 Unit Capsule PO 800 unit DAILY KELIN Administration Radiology Results: ITS Impressions Head CT 09/15/24 11:48 IMPRESSION: 1. 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 No acute intracranial process. 2. Age-related changes including moderate diffuse on loss and mild scattered white matter hypoattenuation consistent with chronic small vessel ischemic disease. Brain MRI 09/18/24 08:50 IMPRESSION: 1. Age-related changes in the brain. No acute intracranial process. 2. 1.3 x 1.2 x 0.9 cm T2 hyperintense intrasellar mass versus cystic lesion. 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 There is been no evident change in appearance of the pituitary on multiple prior CT studies dating back to thousand 17 which would argue against malignancy/metastases. Would recommend obtaining pre and postcontrast pituitary protocol MRI to distinguish solid versus cystic which would aid in narrowing the differential. Sella Turcica MRI 09/19/24 12:56 IMPRESSION: 1. 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 2. 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 Lumbar Puncture Fluoroscopy 09/19/24 14:00 IMPRESSION: 1. Successful fluoro-guided lumbar puncture. Chest X-Ray 09/24/24 07:39 Impression: Central pulmonary venous congestive change. Labs Labs: Laboratory Results - last 24 hr 09/19/24 09/27/24 13:14 14:16 WBC 9.5 RBC 3.56 L Hgb 11.2 L Hct 33.6 L MCV 94.4 MCH 31.5 MCHC 33.3 RDW 15.6 H Plt Count 273 MPV 10.9 H Immature Gran % (Auto) 2.1 H Neut % (Auto) 71.5 Lymph % (Auto) 15.6 L [place] % (Auto) 8.8 H Eos % (Auto) 1.5 Baso % (Auto) 0.5 Lymph # (Auto) 1.48 [place] # (Auto) 0.8 H Eos # (Auto) 0.1 Baso # (Auto) 0.1 Abs Immat Gran (auto) 0.20 H Absolute Neuts (auto) 6.8 H Absolute Nucleated RBC 0.000 Nucleated RBC % 0.0 Sodium 128 L Potassium 4.9 Chloride 93 L Carbon Dioxide 26 Anion Gap 9 BUN 23 H Creatinine 0.51 L Estim Creat Clear Calc 88 Estimated GFR > 60 Glucose 204 H Calcium 8.2 L Total Bilirubin 0.3 AST 20 ALT 20 Alkaline Phosphatase 88 Total Protein 6.0 L Albumin 2.8 L 2.9 L CSF Albumin (MS) 14.2 CSF IgG Oligo Bnd (MS) Absent CSF IgG (MS) 1.8 Serum IgG (MS) 724 CSF IgG Index (MS) 0.48 CSF IgG Synth Rate MS -2.1 CSF Myelin Bsc Prot MS <2.0
[2024-09-28 08:46] LABS: Basophils Absolute Auto 0.1 K/mm3 (0.0-0.1); Basophils Percent Auto 0.6 % (0.2-1.2); Eosinophils Absolute Auto 0.2 K/mm3 (0-0.3); Eosinophils Percent Auto 2.5 % (0-4.4); Hematocrit 32.7 % (37.0-47.0); Hemoglobin 10.9 g/dL (12.0-15.0); Immature Granulocyte Absolute 0.14 K/mm3 (0.00-0.031); Immature Granulocyte Percent A 1.6 % (0-0.5); Lymphocytes Absolute Auto 2.06 K/mm3 (0.9-3.2); Lymphocytes Percent Auto 23.8 % (18.3-44.2); Mean Corpuscular HGB Conc 33.3 g/dl (32-36); Mean Corpuscular Hemoglobin 31.4 pg (26-34); Mean Corpuscular Volume 94.2 fl (80-100); Mean Platelet Volume 10.8 fl (7.4-10.4); Monocytes Absolute Auto 0.9 K/mm3 (0.1-0.6); Monocytes Percent Auto 10.4 % (2.6-8.5); Neutrophils Absolute Auto 5.3 K/mm3 (1.3-6.7); Neutrophils Percent Auto 61.1 % (45.5-73.1); Platelet Count Result 231 k/mm3 (150-375); Red Blood Count 3.47 M/mm3 (4.2-5.4); Red Cell Distribution Width 15.9 % (11.5-14.5); White Blood Count 8.6 K/mm3 (4.5-10.0)
[2024-09-28 09:01] LABS: Alanine Aminotransferase 19 U/L (6-35); Albumin Level 2.9 g/dL (3.5-5.1); Alkaline Phosphatase 87 U/L (38-126); Anion Gap 5 mmol/L (4-12); Aspartate Amino Transferase 19 U/L (14-36); Bilirubin,Total 0.3 mg/dL (0.2-1.3); Blood Urea Nitrogen 18 mg/dL (7-17); Calcium 8.3 mg/dL (8.4-10.2); Carbon Dioxide 30 mmol/L (22-30); Chloride 93 mmol/L (98-107); Estimated CRCL calculation 93 ml/min; Estimated Glomerular Filt Rate > 60; Glucose 104 mg/dL (65-110); Potassium 4.4 mmol/L (3.4-5.0); Sodium 128 mmol/L (137-145)
[2024-09-28 09:02] LABS: Anion Gap 5 mmol/L (4-12); Blood Urea Nitrogen 18 mg/dL (7-17); Calcium 8.3 mg/dL (8.4-10.2); Carbon Dioxide 30 mmol/L (22-30); Chloride 93 mmol/L (98-107); Estimated CRCL calculation 91 ml/min; Estimated Glomerular Filt Rate > 60; Glucose 103 mg/dL (65-110); Potassium 4.4 mmol/L (3.4-5.0); Sodium 128 mmol/L (137-145)
[2024-09-28] MEDS: LIDOCAINE 5% PATCH 2 PATCH TOPICAL (09:37)
[2024-09-28] MEDS: PRIMIDONE 50 MG TABLET 100 MG PO ×3 (09:37→17:16)
[2024-09-28] MEDS: CHOLECALCIFEROL 5,000 UNITS TABLET 5000 UNITS PO (09:38)
[2024-09-28] MEDS: FUROSEMIDE 20 MG TABLET PO (09:38)
[2024-09-28] MEDS: VITAMIN E 400 UNIT CAPSULE 800 UNIT PO (09:38)
[2024-09-28] MEDS: guaiFENesin 12 HR 600 MG TABCR 1200 MG PO ×2 (09:38→17:15)
[2024-09-28] MEDS: PANTOPRAZOLE 40 MG TABLET PO (09:38)
[2024-09-28] MEDS: POTASSIUM CHLORIDE 10 MEQ ER TABLET PO (09:38)
[2024-09-28] MEDS: METOPROLOL TARTRATE 50 MG TAB 100 MG PO ×2 (09:38→21:21)
[2024-09-28] MEDS: ISOSORBIDE MONONITRATE 30 MG TAB.ER.24H PO (09:39)
[2024-09-28] MEDS: PREGABALIN (*CRX) 75 MG CAPSULE 150 MG PO ×2 (09:39→21:21)
[2024-09-28] MEDS: amLODIPine BESYLATE 10 MG TABLET PO (09:39)
[2024-09-28] MEDS: LOSARTAN POTASSIUM 100 MG TABLET PO (09:39)
[2024-09-28] MEDS: MEMANTINE 5 MG TABLET PO ×2 (09:39→21:21)
[2024-09-28] MEDS: BACLOFEN 5 MG TABLET PO ×2 (09:39→17:16)
[2024-09-28] MEDS: VITAMIN B COMPLEX CAPSULE 1 CAP PO (09:39)
[2024-09-28] MEDS: SODIUM CHLORIDE 0.9% IV 1,000 ML 75 ML IV CONT (15:22)
[2024-09-28] MEDS: RIVAROXABAN 20 MG TABLET PO (17:16)
[2024-09-28] MEDS: ATORVASTATIN 10 MG TABLET PO (21:21)
[2024-09-29] VITALS (7 sets, daily range): BP systolic 153–179; BP diastolic 57–71; PULSE 76–109; RESP 11–20; TEMP 36.8–36.9; O2SAT 95–100
[2024-09-29] MEDS: SODIUM CHLORIDE 0.9% IV 1,000 ML 75 ML IV CONT ×2 (04:54→17:38)
[2024-09-29] MEDS: LORazepam (*CRX) 0.5 MG TABLET PO ×2 (05:28→21:17)
[2024-09-29] MEDS: PANTOPRAZOLE 40 MG TABLET PO (09:43)
[2024-09-29] MEDS: ISOSORBIDE MONONITRATE 30 MG TAB.ER.24H PO (09:43)
[2024-09-29] MEDS: VITAMIN B COMPLEX CAPSULE 1 CAP PO (09:43)
[2024-09-29] MEDS: LOSARTAN POTASSIUM 100 MG TABLET PO (09:43)
[2024-09-29] MEDS: MEMANTINE 5 MG TABLET PO ×2 (09:43→21:17)
[2024-09-29] MEDS: amLODIPine BESYLATE 10 MG TABLET PO (09:43)
[2024-09-29] MEDS: POTASSIUM CHLORIDE 10 MEQ ER TABLET PO (09:43)
[2024-09-29] MEDS: VITAMIN E 400 UNIT CAPSULE 800 UNIT PO (09:44)
[2024-09-29] MEDS: CHOLECALCIFEROL 5,000 UNITS TABLET 5000 UNITS PO (09:44)
[2024-09-29] MEDS: BACLOFEN 5 MG TABLET PO (09:44)
[2024-09-29] MEDS: ACETAMINOPHEN 325 MG TABLET 650 MG PO (09:44)
[2024-09-29] MEDS: PREGABALIN (*CRX) 75 MG CAPSULE 150 MG PO ×2 (09:45→21:17)
[2024-09-29] MEDS: guaiFENesin 12 HR 600 MG TABCR 1200 MG PO (09:45)
[2024-09-29] MEDS: METOPROLOL TARTRATE 50 MG TAB 100 MG PO ×2 (09:45→21:16)
[2024-09-29] MEDS: PRIMIDONE 50 MG TABLET 100 MG PO (09:46)
[2024-09-29] MEDS: LIDOCAINE 5% PATCH 2 PATCH TOPICAL (09:47)
--- NOTE | 2024-09-29 10:29 | PM.IMPN ---
Progress Note: A&P Assessment and Plan (1) Altered mental status: Code(s): R41.82 - Altered mental status, unspecified Status: Acute (2) Sepsis: Qualifiers: Sepsis type: methicillin resistant Staphylococcus aureus Sepsis acute organ dysfunction status: unspecified Qualified Code(s): A41.02 - Sepsis due to Methicillin resistant Staphylococcus aureus Code(s): A41.9 - Sepsis, unspecified organism Status: Acute Plan AMS (altered mental status): Code(s): R41.82 - Altered mental status, unspecified Status: Acute Assessment and Plan: Patient presents with altered mental status. She has a normal baseline AOx3 with slow speech. 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 Patient presented with fevers on 09/15. LP performed 09/19 showing no RBCs and 1 WBCs with mostly lymphocytes. Gram stain showing rare WBC and no organisms. Glucose 97 and protein 51. Viral and bacterial meningitis unlikely but she was on abx prior to LP being performed so could be partially treated meningitis. Consider AMS related to polypharmacy. Consider catatonia. Symptoms seem to wax and wane - delirium? CSF HSV PCR negative. Acyclovir stopped. CSF bacterial cultures were NOT sent to [facility] (fungal cx sent); unable to determine if partially treated meningitis but felt less likely. Stop IV abx and monitor Primidone and Baclofen were cuts back. 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 Patient has dysphagia likely resulting from previous multiple stroke I had a long and thought discussions with patient's family: patient's and daughter about prognosis and goals of care, Patient daughter down man request to start feeding tube for G-tube Will consult GI for tube feeding placement Consult dietitian for tube feeding Started PT/OT/ST. ST recommended dropping her from Level 5 to Level 4 Pureed diet which was done. Discussed with neurology. He recommended continuing to wean primidone every 7 days. Scheduled IV Ativan for possible catatonia. Did have some improvement yesterday but worse today. ABG ordered but this was okay. back off on Ativan. Stop IV abx. 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 p.o. per neurologist recommendation Discontinue furosemide 20 mg b.i.d. p.o. Gentle IV fluid with normal saline 75 mL/hour Patient cannot tolerate diet Sepsis: Qualifiers: Sepsis acute organ dysfunction status: unspecified Sepsis type: sepsis due to unspecified organism Qualified Code(s): A41.9 - Sepsis, unspecified organism Code(s): A41.9 - Sepsis, unspecified organism Status: Acute Assessment and Plan: Noted on admission with fevers, AMS and elevated white count. UTI has been ruled out. Blood cultures negative. Chest x-ray was clear on admission and repeat CXR clear on 09/18. Requiring O2 now. Repeat CXR 09/24 showing congestive changes so Lasix IV once given with good UOP No CSF cultures sent to [facility]. Stop abx and monitor. White blood cell within normal limit, patient is afebrile, Atrial fibrillation with RVR: Code(s): I48.91 - Unspecified atrial fibrillation Status: Acute Assessment and Plan: Review of chart showing she has AFib and was on Xarelto on prior admissions. In the paper chart, the papers from the long term sheets only had 5 of 6 sheets. Suspect the 6th sheet listed additional medications (including Xarelto). RN will call long term to get a complete list of patient's medications. Restarted Xarelto Hypertension: Code(s): I10 - Essential (primary) hypertension Status: Acute Assessment and Plan: Patient's blood pressure was reviewed on 09/26 Blood pressure with wide fluctuations. Hydralazine held. continue to monitor for now Acute and chronic respiratory failure: Qualifiers: Respiratory failure complication: hypoxia Qualified Code(s): J96.21 - Acute and chronic respiratory failure with hypoxia Code(s): J96.20 - Acute and chronic respiratory failure, unspecified whether with hypoxia or hypercapnia Status: Acute Assessment and Plan: ABG in ER - pH of 7.46, pCO2 33.0, PO2 67.4, bicarb 23.0, O2 94.6%. Patient presumably wears oxygen at the facility but has been weaned to room air here Continue CPAP at night and with naps as she allows. Obstructive sleep apnea: Code(s): G47.33 - Obstructive sleep apnea (adult) (pediatric) Status: Acute Assessment and Plan: Continue CPAP at night and with naps as she allows. UTI (urinary tract infection): Qualifiers: Hematuria presence: without hematuria Urinary tract infection type: acute cystitis Qualified Code(s): N30.00 - Acute cystitis without hematuria Code(s): N39.0 - Urinary tract infection, site not specified Status: Resolved Assessment and Plan: UA is consistent with UTI. UCx collected. 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 Abx started. BCx and UCx negative. UTI ruled out. She is having urine retention and unable to tolerate the Delarosa removed 09/25/24. Plan for discharge with Delarosa (8) Tachycardia: Code(s): R00.0 - Tachycardia, unspecified Status: Resolved Assessment and Plan: Probably related to above. Heart rate better controlled. No alarms by tele so tele stopped. I discussed case with Dr. Moran on the phone, he also considers the patient has severe dementia. Patient prognosis is poor, I have tried to reach to patient's family and left message to patient's Obed. I needed discussed with patient family above patient goal of care Subjective Date/time seen: 09/29/24 10:29 Interval history: I saw examined patient, basically patient does not have any change, patient is arousable, cannot tolerate diet. Patient does not have obvious distress, patient is afebrile blood pressure stable over the night. Exam Narrative: GENERAL: Lethargic, ill-appearing in no acute distress. Well-nourished. - EYES: EOMI. Anicteric. - HENT: Dry mucous membranes. - LUNGS: Clear to auscultation bilaterally, no wheezing, rhonchi, or rales. - CARDIOVASCULAR: Regular rate and rhythm. No murmur. No JVD. - ABDOMEN: Soft, non-tender and non-distended. No palpable masses. - EXTREMITIES: No edema. Peripheral pulses 2+. Non-tender. - NEUROLOGIC: No focal neurological deficits. CN II-XII grossly intact. General weakness - PSYCHIATRIC: Somnolent, arousable, and not oriented x 3. Flat mood and affect. - SKIN: No rashes or lesions. Warm. - LYMPH: No cervical lymphadenopathy. Objective Data Vital Signs Vital Signs: Vital Signs - 24 hr 09/28/24 14:00 09/28/24 21:12 09/28/24 21:21 Temperature 96.9 F L Pulse Rate 73 84 Respiratory Rate 17 Blood Pressure 139/58 L Pulse Oximetry 96 Oxygen Delivery Room Air 09/28/24 21:25 09/28/24 22:00 09/28/24 22:30 Temperature 98.0 F Pulse Rate 84 Respiratory Rate 18 Blood Pressure 173/70 H 185/76 H 158/72 H Pulse Oximetry 94 Oxygen Delivery 09/28/24 23:08 09/29/24 01:46 09/29/24 06:00 Temperature 98.2 F Pulse Rate 76 Respiratory Rate 16 14 18 Blood Pressure 153/60 H Pulse Oximetry 95 96 100 Oxygen Delivery Autopap Autopap 09/29/24 09:45 Temperature Pulse Rate 78 Respiratory Rate Blood Pressure Pulse Oximetry Oxygen Delivery Intake/Output Intake/Output: Intake & Output 09/26/24 09/27/24 09/28/24 09/29/24 23:59 23:59 23:59 23:59 Intake Total 4035 967 5916 1100 Output Total 1999 7364 1417 0541 [phone] Meds/Results Medications: Active Medications Generic Name Dose Route Start Last Admin Trade Name Freq PRN Reason Stop Dose Admin Acetaminophen 650 mg 09/19/24 09:14 Acetaminophen 650 Mg Suppository RECTAL Q6H PRN Mild Pain (1-3) or Fever Acetaminophen 650 mg 09/19/24 10:07 09/29/24 09:44 Acetaminophen 325 Mg Tablet PO 650 mg Q6H PRN Administration Mild Pain (1-3) or Fever Amlodipine Besylate 10 mg 09/16/24 09:00 09/29/24 09:43 Amlodipine Besylate 10 Mg Tablet PO 10 mg DAILY KELIN Administration Artificial Tears 1 drop 09/15/24 23:37 Artificial Tears Ophth Soln 15 Ml Bottle EACH EYE QID PRN Dry Eye(S) Atorvastatin Calcium 10 mg 09/16/24 00:25 09/28/24 21:21 Atorvastatin 10 Mg Tablet PO 10 mg HS KELIN Administration Baclofen 5 mg 09/26/24 17:00 09/29/24 09:44 Baclofen 5 Mg Tablet PO 5 mg BID KELIN Administration Dextrose 12.5 gm 09/15/24 12:45 Dextrose 50% 25 Gm/50 Ml Syringe IV PUSH PRN PRN Hypoglycemia Protocol Diclofenac Sodium 1 applic 09/15/24 23:37 Diclofenac Sodium 1% 100 Gm Gel (*Bkc) TOPICAL BID PRN moderate pain (scale score 5-6) Fluticasone Propionate 2 spray 09/22/24 16:37 Fluticasone Propionate 0.05% Na Spr 16 Gm Btl (*Bkc) NASAL DAILY PRN Nasal Congestion Glucagon 1 mg 09/15/24 12:45 Glucagon For Inj 1 Mg Vial IM PRN PRN Hypoglycemia Protocol Glucose 15 gm 09/15/24 12:45 Glucose Oral Gel 15 Gm Of Glucse In 37.5 Gm Tube PO PRN PRN Hypoglycemia Protocol Guaifenesin 1,200 mg 09/16/24 09:00 09/29/24 09:45 Guaifenesin 12 Hr 600 Mg Tabcr PO 1,200 mg BID KELIN Administration Hydralazine HCl 10 mg 09/18/24 10:11 Hydralazine Hcl 20 Mg/Ml Vial IV PUSH Q8H PRN Blood Pressure - High Dextrose 1,000 mls @ 100 mls/hr 09/15/24 12:45 Dextrose 5% 1,000 Ml IVPB PRN PRN Hypoglycemia Protocol Sodium Chloride 1,000 mls @ 75 mls/hr 09/28/24 14:55 09/29/24 04:54 Normal Saline Iv IV CONT 75 mls/hr .[id number] KELIN Administration Isosorbide Mononitrate 30 mg 09/16/24 09:00 09/29/24 09:43 Isosorbide Mononitrate 30 Mg Tab.Er.24h PO 30 mg DAILY KELIN Administration Levalbuterol HCl 1.25 mg 09/22/24 08:41 Levalbuterol Neb 1.25 Mg/3 Ml INHALATION Q6HRT PRN Shortness Of Breath Lidocaine 2 patch 09/16/24 09:00 09/29/24 09:47 Lidocaine 5% Patch TOPICAL 2 patch DAILY KELIN Administration Lorazepam 0.5 mg 09/26/24 21:00 09/29/24 05:28 Lorazepam (*Crx) 0.5 Mg Tablet PO 0.5 mg Q8H KELIN Administration Losartan Potassium 100 mg 09/16/24 09:00 09/29/24 09:43 Losartan Potassium 100 Mg Tablet PO 100 mg DAILY KELIN Administration Memantine 5 mg 09/16/24 00:25 09/29/24 09:43 Memantine 5 Mg Tablet PO 5 mg Q12HR KELIN Administration Metoprolol Tartrate 100 mg 09/16/24 00:25 09/29/24 09:45 Metoprolol Tartrate 50 Mg Tab PO 100 mg Q12HR KELIN Administration Ondansetron HCl 4 mg 09/15/24 12:45 Ondansetron Inj 4 Mg/2 Ml Vial IV PUSH Q4H PRN Nausea Pantoprazole Sodium 40 mg 09/16/24 09:00 09/29/24 09:43 Pantoprazole 40 Mg Tablet PO 40 mg DAILY KELIN Administration Polyethylene Glycol 17 gm 09/15/24 23:37 Polyethylene Glycol 3350 17 Gm Powd.Pack PO DAILY PRN Constipation Potassium Chloride 10 meq 09/16/24 09:00 09/29/24 09:43 Potassium Chloride 10 Meq Er Tablet PO 10 meq DAILY [facility] Administration Pregabalin 150 mg 09/16/24 00:25 09/29/24 09:45 Pregabalin (*Crx) 75 Mg Capsule PO 150 mg Q12HR [facility] Administration Primidone 100 mg 09/22/24 09:00 09/29/24 09:46 Primidone 50 Mg Tablet PO 100 mg TID KELIN Administration Rivaroxaban 20 mg 09/23/24 17:00 09/28/24 17:16 Rivaroxaban 20 Mg Tablet PO 20 mg DAILY@1700 [facility] Administration Sodium Chloride 2 spray 09/15/24 23:37 Saline 0.65% Gordo Soln 44 Ml Btl NASAL PRN PRN Congestion Vitamin B Complex 1 cap 09/16/24 09:00 09/29/24 09:43 Vitamin B Complex Capsule PO 1 cap QAM [facility] Administration Vitamin D 5,000 units 09/16/24 09:00 09/29/24 09:44 Cholecalciferol 5,000 Units Tablet PO 5,000 units DAILY [facility] Administration Vitamin E 800 unit 09/16/24 09:00 09/29/24 09:44 Vitamin E 400 Unit Capsule PO 800 unit DAILY KELIN Administration Radiology Results: ITS Impressions Head CT 09/15/24 11:48 IMPRESSION: 1. 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 No acute intracranial process. 2. Age-related changes including moderate diffuse on loss and mild scattered white matter hypoattenuation consistent with chronic small vessel ischemic disease. Brain MRI 09/18/24 08:50 IMPRESSION: 1. Age-related changes in the brain. No acute intracranial process. 2. 1.3 x 1.2 x 0.9 cm T2 hyperintense intrasellar mass versus cystic lesion. 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 There is been no evident change in appearance of the pituitary on multiple prior CT studies dating back to 19 which would argue against malignancy/metastases. Would recommend obtaining pre and postcontrast pituitary protocol MRI to distinguish solid versus cystic which would aid in narrowing the differential. Sella Turcica MRI 09/19/24 12:56 IMPRESSION: 1. 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 2. 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 Lumbar Puncture Fluoroscopy 09/19/24 14:00 IMPRESSION: 1. Successful fluoro-guided lumbar puncture. Chest X-Ray 09/24/24 07:39 Impression: Central pulmonary venous congestive change.
--- NOTE | 2024-09-29 14:15 | PC.NURSE ---
pt able to take PO meds after encouragement and lunch tray, took meds crushed with jillian delaney
--- NOTE | 2024-09-29 14:18 | P.CONGI_ITS ---
Assessment and Plan Assessment and plan (1) Acute encephalopathy: Code(s): G93.40 - Encephalopathy, unspecified Status: Acute Assessment and Plan: unable to eat, she is quite lethargic if family is agreeable then plan to place G-tube on Wednesday (will make sure that anticoagulation is on hold) (2) Sepsis: Qualifiers: Sepsis type: methicillin resistant Staphylococcus aureus Sepsis acute organ dysfunction status: unspecified Qualified Code(s): A41.02 - Sepsis due to Methicillin resistant Staphylococcus aureus Code(s): A41.9 - Sepsis, unspecified organism Status: Acute Assessment and Plan: already treated on admission (3) Dysphagia: Qualifiers: Dysphagia type: esophageal phase Qualified Code(s): R13.19 - Other dysphagia Code(s): R13.10 - Dysphagia, unspecified Status: Acute Assessment and Plan: not eating h/o dementia and failure to thrive (4) Chronic respiratory failure with hypoxia, on home oxygen therapy: Code(s): J96.11 - Chronic respiratory failure with hypoxia; Z99.81 - Dependence on supplemental oxygen Status: Acute (5) Chronic anticoagulation: Code(s): Z79.01 - intermediate manager (current) use of anticoagulants Status: Acute (6) Hyponatremia: Code(s): E87.1 - Hypo-osmolality and hyponatremia Status: Acute GI Consult Note Consult date/time: 09/29/24 14:18 Reason for consult: dysphagia, encephalopathy HPI: Celestina Ewing is a 73 year old female from a local Nursing Facility, who was originally discharged from [facility] with pneumonia, that presented back to the Emergency department with weakness, fever and altered mental status 09/15 and was readmitted to hospital with sepsis, hyponatremia, failure to thrive. Brain imaging noted chronic changes of stroke, underwent lumbar puncture with no major findings. She has been encephalopathic and primary talked to family about possibility of G-tube placement since she has not had cognitive improvement. History was obtained from records. Review of Systems 2 Review of Systems: ROS unobtainable: Yes unobtainable due to mental status PMFSH Past Medical History Medical History (Updated 09/29/24 @ 14:23 by Allen Ramirez MD) Chronic anticoagulation Kidney stone Chronic anemia Chronic respiratory failure with hypoxia, on home oxygen therapy Bipolar disorder Gastroesophageal reflux disease Hyperlipidemia Hypertension Obstructive sleep apnea intolerant to CPAP Left tibial fracture Chronic hyponatremia Shingles Anxiety Depression Gastroparesis Diverticulitis Asthma Epilepsy no longer on medication Seasonal allergies Surgical History Surgical History History of left above knee amputation History of right shoulder replacement History of cholecystectomy History of left knee replacement History of hysterectomy History of open reduction and internal fixation (ORIF) procedure Left tibia and right ankle. History of appendectomy History of tonsillectomy Family History Family History Mother Suicide Depression Heart disease Hypertension Heart failure Sibling Suicide Father Diabetes mellitus Emphysema lung Social History Social History Social History: Surrogate medical decision maker: Martina Rodney, daughter. Code status: Full code. Smoking status: Never smoker Second hand tobacco smoke exposure: No Alcohol intake: never Substance use: never Substance use type: does not use Do You Feel Safe in your Home?: Yes Lack of Transportation: No Lack of Food: Never True Current Housing: I Have Housing Concerned About Future Housing: No Difficulty Paying Gas/Electric Bills: No Difficulty Paying for Meds: No Currently Unemployed: No Education: Decline to Answer Difficulty w/ Childcare or Family Care: No Living arrangements: [place] Occupation/Education: retired Spiritual care concerns: No Agree to blood products: No Meds Home Medications and Allergies Home Medications ?Medication ?Instructions ?Recorded ?Confirmed ?Type atorvastatin 10 mg tablet 10 mg PO HS 09/09/19 09/15/24 History cholecalciferol (vitamin D3) 10 5,000 unit PO DAILY 09/09/19 09/15/24 History mcg (400 unit) tablet fluticasone propionate 50 2 spray intranasal DAILY 09/09/19 09/15/24 History mcg/actuation nasal spray,suspension pantoprazole 40 mg tablet,delayed 40 mg PO DAILY 09/09/19 09/15/24 History release primidone 50 mg tablet 200 mg PO BID 09/09/19 09/15/24 History vitamin E 268 mg (400 unit) capsule 800 unit PO DAILY 09/09/19 09/15/24 History docusate sodium 100 mg tablet 100 mg PO DAILY PRN Constipation 05/31/20 09/15/24 History spironolactone 25 mg tablet 25 mg PO DAILY 05/31/20 09/15/24 History baclofen 10 mg tablet 10 mg PO TID 02/19/21 09/15/24 History albuterol sulfate 90 mcg/actuation 1 inh inhalation DAILY PRN 04/23/24 09/15/24 History aerosol inhaler sob/wheezing amlodipine 10 mg tablet 10 mg PO DAILY 04/23/24 09/15/24 History bisacodyl 5 mg tablet,delayed 10 mg PO HS PRN Constipation 04/23/24 09/15/24 History release (Dulcolax (bisacodyl)) guaifenesin 1,200 mg tablet, 1,200 mg PO BID 04/23/24 09/15/24 History extended release 12 hr (Mucinex) memantine 5 mg tablet 5 mg PO BID 04/23/24 09/15/24 History metoprolol tartrate 100 mg tablet 100 mg PO BID 04/23/24 09/15/24 History ondansetron HCl 4 mg tablet 4 mg PO TID 04/23/24 09/15/24 History polyethylene glycol 3350 17 17 g PO DAILY PRN Constipation 04/23/24 09/15/24 History gram/dose oral powder (Miralax) sodium chloride 0.65 % nasal spray 2 spray intranasal PRN PRN 04/23/24 09/15/24 History aerosol Congestion vitamin B complex 1 tablet PO DAILY 04/23/24 09/15/24 History pregabalin 150 mg capsule (Lyrica) 150 mg PO BID #14 caps 05/04/24 09/15/24 Rx diclofenac sodium 1 % topical gel 2 g topical BID PRN moderate pain 08/06/24 09/15/24 History (Voltaren Arthritis Pain) (scale score 5-6) isosorbide mononitrate 30 mg 30 mg PO DAILY 08/06/24 09/15/24 History tablet,extended release 24 hr lidocaine 5 % topical patch 2 patch topical DAILY 08/06/24 09/15/24 History (Lidoderm) magnesium hydroxide 400 mg/5 mL 30 ml PO DAILY PRN constipation 08/06/24 09/15/24 History oral suspension (Gentle Laxative (magnesium hydroxide)) hydralazine 10 mg tablet 10 mg PO QID #30 tabs 08/14/24 09/15/24 Rx oxycodone 5 mg tablet 5 mg PO Q4-6H PRN Pain #7 tabs 08/14/24 09/15/24 Rx peg [id number] 1 1 drp EACH EYE QID PRN Dry Eye(S) 08/14/24 09/15/24 Rx %-0.2 %-0.2 % eye drops #30 mL (Artificial Tears ([id number])) clonidine HCl 0.1 mg tablet 0.1 mg PO DAILY 09/07/24 09/15/24 History furosemide 20 mg tablet (Lasix) 20 mg PO BID 09/07/24 09/15/24 History isosorbide dinitrate 30 mg tablet 30 mg PO QID 09/07/24 09/15/24 History lorazepam 0.5 mg tablet 0.5 mg PO Q6H PRN Anxiety 09/07/24 09/15/24 History losartan 100 1 tablet PO DAILY 09/07/24 09/15/24 History mg-hydrochlorothiazide 25 mg tablet potassium chloride 10 mEq 10 meq PO DAILY #7 tabs 09/14/24 09/15/24 Rx tablet,extended release (Klor-Con) Allergies Allergy/AdvReac Type Severity Reaction Status Date / Time Fish Containing Products Allergy Severe Dyspnea / Verified 04/23/24 19:11 SOB Iodinated Contrast Media Allergy Intermediate HIVES, RED Verified 04/27/24 08:14 FACE iodine Allergy Unknown Unknown Verified 04/23/24 19:11 Barbiturates Allergy Unknown Verified 04/23/24 19:11 bupivacaine Allergy Unknown Verified 04/23/24 20:51 diazepam (From Valium) Allergy Unknown Verified 04/23/24 19:11 latex Allergy Unknown Verified 04/23/24 19:11 menthol Allergy Unknown Verified 04/23/24 20:51 Sulfa (Sulfonamide Allergy Unknown Verified 04/23/24 19:11 Antibiotics) thiopental (From Pentothal) Allergy Unknown Verified 04/27/24 08:14 wool Allergy Unknown Verified 04/23/24 20:51 Vital Signs Vital Signs - 24 hr 09/28/24 21:12 09/28/24 21:21 09/28/24 21:25 Temperature Pulse Rate 84 Respiratory Rate Blood Pressure 173/70 H Pulse Oximetry Oxygen Delivery Room Air 09/28/24 22:00 09/28/24 22:30 09/28/24 23:08 Temperature 98.0 F Pulse Rate 84 Respiratory Rate 18 16 Blood Pressure 185/76 H 158/72 H Pulse Oximetry 94 95 Oxygen Delivery Autopap 09/29/24 01:46 09/29/24 06:00 09/29/24 09:45 Temperature 98.2 F Pulse Rate 76 78 Respiratory Rate 14 18 Blood Pressure 153/60 H Pulse Oximetry 96 100 Oxygen Delivery Autopap Exam 2 Narrative: GENERAL: Lethargic, ill-appearing in no acute distress. - EYES: EOMI. Anicteric. - HENT: Dry mucous membranes. - LUNGS: Clear to auscultation bilateral ly. - CARDIOVASCULAR: Regular rate and rhyth m. - ABDOMEN: Soft, non-tender and non-dist ended. No palpable masses. - EXTREMITIES: No edema. Peripheral puls es 2+. Non-tender. - NEUROLOGIC: lethargic and hardly respo nding to stimuli - PSYCHIATRIC: Somnolent - SKIN: No rashes or lesions. Warm. - LYMPH: No cervical lymphadenopathy. Results Labs 09/28/24 08:41 09/28/24 08:41
[2024-09-29] MEDS: ATORVASTATIN 10 MG TABLET PO (21:17)
[2024-09-30] VITALS (7 sets, daily range): BP systolic 156–195; BP diastolic 61–71; PULSE 68–104; RESP 12–121; TEMP 36.5–37.2; O2SAT 96–99
[2024-09-30] MEDS: LORazepam (*CRX) 0.5 MG TABLET PO ×2 (05:04→21:41)
[2024-09-30] MEDS: SODIUM CHLORIDE 0.9% IV 1,000 ML 75 ML IV CONT ×2 (07:24→18:10)
[2024-09-30] MEDS: BACLOFEN 5 MG TABLET PO ×2 (09:25→18:11)
[2024-09-30] MEDS: amLODIPine BESYLATE 10 MG TABLET PO (09:25)
[2024-09-30] MEDS: MEMANTINE 5 MG TABLET PO ×2 (09:25→21:42)
[2024-09-30] MEDS: POTASSIUM CHLORIDE 10 MEQ ER TABLET PO (09:25)
[2024-09-30] MEDS: CHOLECALCIFEROL 5,000 UNITS TABLET 5000 UNITS PO (09:25)
[2024-09-30] MEDS: ISOSORBIDE MONONITRATE 30 MG TAB.ER.24H PO (09:25)
[2024-09-30] MEDS: ACETAMINOPHEN 325 MG TABLET 650 MG PO (09:26)
[2024-09-30] MEDS: PRIMIDONE 50 MG TABLET 100 MG PO ×3 (09:26→18:11)
[2024-09-30] MEDS: LOSARTAN POTASSIUM 100 MG TABLET PO (09:26)
[2024-09-30] MEDS: METOPROLOL TARTRATE 50 MG TAB 100 MG PO ×2 (09:26→21:42)
[2024-09-30] MEDS: PANTOPRAZOLE 40 MG TABLET PO (09:26)
[2024-09-30] MEDS: PREGABALIN (*CRX) 75 MG CAPSULE 150 MG PO ×2 (09:27→21:42)
[2024-09-30] MEDS: guaiFENesin 12 HR 600 MG TABCR 1200 MG PO ×2 (09:27→18:11)
--- NOTE | 2024-09-30 11:25 | P.PNIM_ITS ---
Progress Note: A&P Assessment and Plan (1) Altered mental status: Code(s): R41.82 - Altered mental status, unspecified Status: Acute (2) Sepsis: Qualifiers: Sepsis type: methicillin resistant Staphylococcus aureus Sepsis acute organ dysfunction status: unspecified Qualified Code(s): A41.02 - Sepsis due to Methicillin resistant Staphylococcus aureus Code(s): A41.9 - Sepsis, unspecified organism Status: Acute Plan AMS (altered mental status): Code(s): R41.82 - Altered mental status, unspecified Status: Acute Assessment and Plan: Patient presents with altered mental status. She has a normal baseline AOx3 with slow speech. 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 Patient presented with fevers on 09/15. LP performed 09/19 showing no RBCs and 1 WBCs with mostly lymphocytes. Gram stain showing rare WBC and no organisms. Glucose 97 and protein 51. Viral and bacterial meningitis unlikely but she was on abx prior to LP being performed so could be partially treated meningitis. Consider AMS related to polypharmacy. Consider catatonia. Symptoms seem to wax and wane - delirium? CSF HSV PCR negative. Acyclovir stopped. CSF bacterial cultures were NOT sent to [facility] (fungal cx sent); unable to determine if partially treated meningitis but felt less likely. Stop IV abx and monitor Primidone and Baclofen were cuts back. 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 Patient has dysphagia likely resulting from previous multiple stroke I had a long and thought discussions with patient's family: patient's and daughter about prognosis and goals of care, Patient daughter down man request to start feeding tube for G-tube consult GI for tube feeding placement, plans bed tube on Wednesday. Will place NG tube for feeding today 09/30 Started PT/OT/ST. ST recommended dropping her from Level 5 to Level 4 Pureed diet which was done. Discussed with neurology. He recommended continuing to wean primidone every 7 days. Scheduled IV Ativan for possible catatonia. Did have some improvement yesterday but worse today. ABG ordered but this was okay. back off on Ativan. Stop IV abx. 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 p.o. per neurologist recommendation Discontinue furosemide 20 mg b.i.d. p.o. Gentle IV fluid with normal saline 75 mL/hour Patient cannot tolerate diet Sepsis: Qualifiers: Sepsis acute organ dysfunction status: unspecified Sepsis type: sepsis due to unspecified organism Qualified Code(s): A41.9 - Sepsis, unspecified organism Code(s): A41.9 - Sepsis, unspecified organism Status: Acute Assessment and Plan: Noted on admission with fevers, AMS and elevated white count. UTI has been ruled out. Blood cultures negative. Chest x-ray was clear on admission and repeat CXR clear on 09/18. Requiring O2 now. Repeat CXR 09/24 showing congestive changes so Lasix IV once given with good UOP No CSF cultures sent to [facility]. Stop abx and monitor. White blood cell within normal limit, patient is afebrile, Atrial fibrillation with RVR: Code(s): I48.91 - Unspecified atrial fibrillation Status: Acute Assessment and Plan: Review of chart showing she has AFib and was on Xarelto on prior admissions. In the paper chart, the papers from the residential sheets only had 5 of 6 sheets. Suspect the 6th sheet listed additional medications (including Xarelto). RN will call residential to get a complete list of patient's medications. Restarted Xarelto Hypertension: Code(s): I10 - Essential (primary) hypertension Status: Acute Assessment and Plan: Patient's blood pressure was reviewed on 09/26 Blood pressure with wide fluctuations. Hydralazine held. continue to monitor for now Acute and chronic respiratory failure: Qualifiers: Respiratory failure complication: hypoxia Qualified Code(s): J96.21 - Acute and chronic respiratory failure with hypoxia Code(s): J96.20 - Acute and chronic respiratory failure, unspecified whether with hypoxia or hypercapnia Status: Acute Assessment and Plan: ABG in ER - pH of 7.46, pCO2 33.0, PO2 67.4, bicarb 23.0, O2 94.6%. Patient presumably wears oxygen at the facility but has been weaned to room air here Continue CPAP at night and with naps as she allows. Obstructive sleep apnea: Code(s): G47.33 - Obstructive sleep apnea (adult) (pediatric) Status: Acute Assessment and Plan: Continue CPAP at night and with naps as she allows. UTI (urinary tract infection): Qualifiers: Hematuria presence: without hematuria Urinary tract infection type: acute cystitis Qualified Code(s): N30.00 - Acute cystitis without hematuria Code(s): N39.0 - Urinary tract infection, site not specified Status: Resolved Assessment and Plan: UA is consistent with UTI. UCx collected. 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 Abx started. BCx and UCx negative. UTI ruled out. She is having urine retention and unable to tolerate the Delarosa removed 09/25/24. Plan for discharge with Delarosa (8) Tachycardia: Code(s): R00.0 - Tachycardia, unspecified Status: Resolved Assessment and Plan: Probably related to above. Heart rate better controlled. No alarms by tele so tele stopped. I discussed case with Dr. Moran on the phone, he also considers the patient has severe dementia. Patient prognosis is poor, I have tried to reach to patient's family and left message to patient's Obed. I needed discussed with patient family above patient goal of care Subjective Date/time seen: 09/30/24 11:25 Interval history: I saw examined the patient today. Patient is minimally responsive to questions, still has poor intake, per nurse report, patient to a small amount Ensure today. Patient states she feels not comfortable, but no specific complaints. Patient is afebrile, blood pressure stable, on room air Exam Narrative: GENERAL: Lethargic, ill-appearing in no acute distress. Well-nourished. - EYES: EOMI. Anicteric. - HENT: Dry mucous membranes. - LUNGS: Clear to auscultation bilateral ly, no wheezing, rhonchi, or rales. - CARDIOVASCULAR: Regular rate and rhyth m. No murmur. No JVD. - ABDOMEN: Soft, non-tender and non-dist ended. No palpable masses. - EXTREMITIES: No edema. Peripheral puls es 2+. Non-tender. - NEUROLOGIC: No focal neurological defi cits. CN II-XII grossly intact. General weakness - PSYCHIATRIC: Somnolent, arousable, an d not oriented x 3. Flat mood and affect. - SKIN: No rashes or lesions. Warm. - LYMPH: No cervical lymphadenopathy. Objective Data Vital Signs Vital Signs: Vital Signs - 24 hr 09/29/24 14:00 09/29/24 21:10 09/29/24 21:16 Temperature 98.5 F Pulse Rate 109 H 81 Respiratory Rate 20 Blood Pressure 179/71 H Pulse Oximetry 95 Oxygen Delivery Room Air 09/29/24 22:00 09/29/24 22:30 09/30/24 02:30 Temperature 98.3 F Pulse Rate 81 80 Respiratory Rate 18 11 L 12 Blood Pressure 153/57 H Pulse Oximetry 97 96 Oxygen Delivery Autopap Autopap 09/30/24 06:00 09/30/24 08:50 09/30/24 09:26 Temperature 97.7 F Pulse Rate 75 78 Respiratory Rate 18 Blood Pressure 156/71 H Pulse Oximetry 99 Oxygen Delivery Room Air Intake/Output Intake/Output: Intake & Output 09/27/24 09/28/24 09/29/24 09/30/24 23:59 23:59 23:59 23:59 Intake Total 472 1300 2255 1760 Output Total 1925 4200 3475 3500 [facility] -1453 -2900 -1220 -1740 Meds/Results Medications: Active Medications Generic Name Dose Route Start Last Admin Trade Name Freq PRN Reason Stop Dose Admin Acetaminophen 650 mg 09/19/24 09:14 Acetaminophen 650 Mg Suppository RECTAL Q6H PRN Mild Pain (1-3) or Fever Acetaminophen 650 mg 09/19/24 10:07 09/30/24 09:26 Acetaminophen 325 Mg Tablet PO 650 mg Q6H PRN Administration Mild Pain (1-3) or Fever Amlodipine Besylate 10 mg 09/16/24 09:00 09/30/24 09:25 Amlodipine Besylate 10 Mg Tablet PO 10 mg DAILY KELIN Administration Artificial Tears 1 drop 09/15/24 23:37 Artificial Tears Ophth Soln 15 Ml Bottle EACH EYE QID PRN Dry Eye(S) Atorvastatin Calcium 10 mg 09/16/24 00:25 09/29/24 21:17 Atorvastatin 10 Mg Tablet PO 10 mg HS KELIN Administration Baclofen 5 mg 09/26/24 17:00 09/30/24 09:25 Baclofen 5 Mg Tablet PO 5 mg BID KELIN Administration Dextrose 12.5 gm 09/15/24 12:45 Dextrose 50% 25 Gm/50 Ml Syringe IV PUSH PRN PRN Hypoglycemia Protocol Diclofenac Sodium 1 applic 09/15/24 23:37 Diclofenac Sodium 1% 100 Gm Gel (*Bkc) TOPICAL BID PRN moderate pain (scale score 5-6) Fluticasone Propionate 2 spray 09/22/24 16:37 Fluticasone Propionate 0.05% Na Spr 16 Gm Btl (*Bkc) NASAL DAILY PRN Nasal Congestion Glucagon 1 mg 09/15/24 12:45 Glucagon For Inj 1 Mg Vial IM PRN PRN Hypoglycemia Protocol Glucose 15 gm 09/15/24 12:45 Glucose Oral Gel 15 Gm Of Glucse In 37.5 Gm Tube PO PRN PRN Hypoglycemia Protocol Guaifenesin 1,200 mg 09/16/24 09:00 09/30/24 09:27 Guaifenesin 12 Hr 600 Mg Tabcr PO 1,200 mg BID KELIN Administration Hydralazine HCl 10 mg 09/18/24 10:11 Hydralazine Hcl 20 Mg/Ml Vial IV PUSH Q8H PRN Blood Pressure - High Dextrose 1,000 mls @ 100 mls/hr 09/15/24 12:45 Dextrose 5% 1,000 Ml IVPB PRN PRN Hypoglycemia Protocol Sodium Chloride 1,000 mls @ 75 mls/hr 09/28/24 14:55 09/30/24 07:24 Normal Saline Iv IV CONT 75 mls/hr .[id number] KELIN Administration Isosorbide Mononitrate 30 mg 09/16/24 09:00 09/30/24 09:25 Isosorbide Mononitrate 30 Mg Tab.Er.24h PO 30 mg DAILY KELIN Administration Levalbuterol HCl 1.25 mg 09/22/24 08:41 Levalbuterol Neb 1.25 Mg/3 Ml INHALATION Q6HRT PRN Shortness Of Breath Lidocaine 2 patch 09/16/24 09:00 09/30/24 09:27 Lidocaine 5% Patch TOPICAL Not Given DAILY KELIN Lorazepam 0.5 mg 09/26/24 21:00 09/30/24 05:04 Lorazepam (*Crx) 0.5 Mg Tablet PO 0.5 mg Q8H KELIN Administration Losartan Potassium 100 mg 09/16/24 09:00 09/30/24 09:26 Losartan Potassium 100 Mg Tablet PO 100 mg DAILY KELIN Administration Memantine 5 mg 09/16/24 00:25 09/30/24 09:25 Memantine 5 Mg Tablet PO 5 mg Q12HR [facility] Administration Metoprolol Tartrate 100 mg 09/16/24 00:25 09/30/24 09:26 Metoprolol Tartrate 50 Mg Tab PO 100 mg Q12HR [facility] Administration Ondansetron HCl 4 mg 09/15/24 12:45 Ondansetron Inj 4 Mg/2 Ml Vial IV PUSH Q4H PRN Nausea Pantoprazole Sodium 40 mg 09/16/24 09:00 09/30/24 09:26 Pantoprazole 40 Mg Tablet PO 40 mg DAILY KELIN Administration Polyethylene Glycol 17 gm 09/15/24 23:37 Polyethylene Glycol 3350 17 Gm Powd.Pack PO DAILY PRN Constipation Potassium Chloride 10 meq 09/16/24 09:00 09/30/24 09:25 Potassium Chloride 10 Meq Er Tablet PO 10 meq DAILY [facility] Administration Pregabalin 150 mg 09/16/24 00:25 09/30/24 09:27 Pregabalin (*Crx) 75 Mg Capsule PO 150 mg Q12HR [facility] Administration Primidone 100 mg 09/22/24 09:00 09/30/24 09:26 Primidone 50 Mg Tablet PO 100 mg TID [facility] Administration Rivaroxaban 20 mg 09/23/24 17:00 09/28/24 17:16 Rivaroxaban 20 Mg Tablet PO 20 mg DAILY@1700 [facility] Administration Sodium Chloride 2 spray 09/15/24 23:37 Saline 0.65% Gordo Soln 44 Ml Btl NASAL PRN PRN Congestion Vitamin B Complex 1 cap 09/16/24 09:00 09/30/24 11:07 Vitamin B Complex Capsule PO Not Given QAM [facility] Vitamin D 5,000 units 09/16/24 09:00 09/30/24 09:25 Cholecalciferol 5,000 Units Tablet PO 5,000 units DAILY [facility] Administration Vitamin E 800 unit 09/16/24 09:00 09/30/24 11:07 Vitamin E 400 Unit Capsule PO Not Given DAILY KELIN Radiology Results: ITS Impressions Head CT 09/15/24 11:48 IMPRESSION: 1. 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 No acute intracranial process. 2. Age-related changes including moderate diffuse on loss and mild scattered white matter hypoattenuation consistent with chronic small vessel ischemic disease. Brain MRI 09/18/24 08:50 IMPRESSION: 1. Age-related changes in the brain. No acute intracranial process. 2. 1.3 x 1.2 x 0.9 cm T2 hyperintense intrasellar mass versus cystic lesion. 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 There is been no evident change in appearance of the pituitary on multiple prior CT studies dating back to 19 which would argue against malignancy/metastases. Would recommend obtaining pre and postcontrast pituitary protocol MRI to distinguish solid versus cystic which would aid in narrowing the differential. Sella Turcica MRI 09/19/24 12:56 IMPRESSION: 1. 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 2. 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 Lumbar Puncture Fluoroscopy 09/19/24 14:00 IMPRESSION: 1. Successful fluoro-guided lumbar puncture. Chest X-Ray 09/24/24 07:39 Impression: Central pulmonary venous congestive change.
--- NOTE | 2024-09-30 11:53 | P.PNGI_ITS ---
Progress Note: A&P Assessment and Plan (1) Acute encephalopathy: Code(s): G93.40 - Encephalopathy, unspecified Status: Acute Assessment and Plan: she is lethargic had some ensure but still poor oral intake and she is at risk of aspiration daughter is coming tomorrow and then will decide if they would like to have G- tube placement on Wednesday (2) Dysphagia: Qualifiers: Dysphagia type: esophageal phase Qualified Code(s): R13.19 - Other dysphagia Code(s): R13.10 - Dysphagia, unspecified Status: Acute (3) Hyponatremia: Code(s): E87.1 - Hypo-osmolality and hyponatremia Status: Acute (4) CVA (cerebral vascular accident): Code(s): I63.9 - Cerebral infarction, unspecified Status: Acute (5) Chronic anticoagulation: Code(s): Z79.01 - long term acute care registered nurse (current) use of anticoagulants Status: Acute Assessment and Plan: on hold for preparation of possible G-tube (6) Failure to thrive: Status: Acute Subjective Date/time seen: 09/30/24 11:53 Interval history: no changes, she is lethargic, minimal oral intake Review of Systems Review of Systems: All systems reviewed & are unremarkable except as noted in HPI and below Exam Narrative: GENERAL: Lethargic, ill-appearing in no acute distress. - EYES: EOMI. Anicteric. - HENT: Dry mucous membranes. - LUNGS: Clear to auscultation bilateral ly. - CARDIOVASCULAR: Regular rate and rhyth m. - ABDOMEN: Soft, non-tender and non-dist ended. No palpable masses. - EXTREMITIES: No edema. - NEUROLOGIC: lethargic and hardly respo nding to stimuli - PSYCHIATRIC: Somnolent - SKIN: No rashes or lesions. Warm. - LYMPH: No cervical lymphadenopathy. Objective Data Vital Signs Vital Signs: Vital Signs - 24 hr 09/29/24 14:00 09/29/24 21:10 09/29/24 21:16 Temperature 98.5 F Pulse Rate 109 H 81 Respiratory Rate 20 Blood Pressure 179/71 H Pulse Oximetry 95 Oxygen Delivery Room Air 09/29/24 22:00 09/29/24 22:30 09/30/24 02:30 Temperature 98.3 F Pulse Rate 81 80 Respiratory Rate 18 11 L 12 Blood Pressure 153/57 H Pulse Oximetry 97 96 Oxygen Delivery Autopap Autopap 09/30/24 06:00 09/30/24 08:50 09/30/24 09:26 Temperature 97.7 F Pulse Rate 75 78 Respiratory Rate 18 Blood Pressure 156/71 H Pulse Oximetry 99 Oxygen Delivery Room Air Intake/Output Intake/Output: Intake & Output 09/27/24 09/28/24 09/29/24 09/30/24 23:59 23:59 23:59 23:59 Intake Total 472 1300 2255 1760 Output Total 1925 4208 2223 3509 Balance 0793 -2900 -1220 -0050 Meds/Results Medications: Active Medications Generic Name Dose Route Start Last Admin Trade Name Freq PRN Reason Stop Dose Admin Acetaminophen 650 mg 09/19/24 09:14 Acetaminophen 650 Mg Suppository RECTAL Q6H PRN Mild Pain (1-3) or Fever Acetaminophen 650 mg 09/19/24 10:07 09/30/24 09:26 Acetaminophen 325 Mg Tablet PO 650 mg Q6H PRN Administration Mild Pain (1-3) or Fever Amlodipine Besylate 10 mg 09/16/24 09:00 09/30/24 09:25 Amlodipine Besylate 10 Mg Tablet PO 10 mg DAILY KELIN Administration Artificial Tears 1 drop 09/15/24 23:37 Artificial Tears Ophth Soln 15 Ml Bottle EACH EYE QID PRN Dry Eye(S) Atorvastatin Calcium 10 mg 09/16/24 00:25 09/29/24 21:17 Atorvastatin 10 Mg Tablet PO 10 mg HS KELIN Administration Baclofen 5 mg 09/26/24 17:00 09/30/24 09:25 Baclofen 5 Mg Tablet PO 5 mg BID KELIN Administration Dextrose 12.5 gm 09/15/24 12:45 Dextrose 50% 25 Gm/50 Ml Syringe IV PUSH PRN PRN Hypoglycemia Protocol Diclofenac Sodium 1 applic 09/15/24 23:37 Diclofenac Sodium 1% 100 Gm Gel (*Bkc) TOPICAL BID PRN moderate pain (scale score 5-6) Fluticasone Propionate 2 spray 09/22/24 16:37 Fluticasone Propionate 0.05% Na Spr 16 Gm Btl (*Bkc) NASAL DAILY PRN Nasal Congestion Glucagon 1 mg 09/15/24 12:45 Glucagon For Inj 1 Mg Vial IM PRN PRN Hypoglycemia Protocol Glucose 15 gm 09/15/24 12:45 Glucose Oral Gel 15 Gm Of Glucse In 37.5 Gm Tube PO PRN PRN Hypoglycemia Protocol Guaifenesin 1,200 mg 09/16/24 09:00 09/30/24 09:27 Guaifenesin 12 Hr 600 Mg Tabcr PO 1,200 mg BID KELIN Administration Hydralazine HCl 10 mg 09/18/24 10:11 Hydralazine Hcl 20 Mg/Ml Vial IV PUSH Q8H PRN Blood Pressure - High Dextrose 1,000 mls @ 100 mls/hr 09/15/24 12:45 Dextrose 5% 1,000 Ml IVPB PRN PRN Hypoglycemia Protocol Sodium Chloride 1,000 mls @ 75 mls/hr 09/28/24 14:55 09/30/24 07:24 Normal Saline Iv IV CONT 75 mls/hr .[id number] KELIN Administration Isosorbide Mononitrate 30 mg 09/16/24 09:00 09/30/24 09:25 Isosorbide Mononitrate 30 Mg Tab.Er.24h PO 30 mg DAILY KELIN Administration Levalbuterol HCl 1.25 mg 09/22/24 08:41 Levalbuterol Neb 1.25 Mg/3 Ml INHALATION Q6HRT PRN Shortness Of Breath Lidocaine 2 patch 09/16/24 09:00 09/30/24 09:27 Lidocaine 5% Patch TOPICAL Not Given DAILY KELIN Lorazepam 0.5 mg 09/26/24 21:00 09/30/24 05:04 Lorazepam (*Crx) 0.5 Mg Tablet PO 0.5 mg Q8H KELIN Administration Losartan Potassium 100 mg 09/16/24 09:00 09/30/24 09:26 Losartan Potassium 100 Mg Tablet PO 100 mg DAILY KELIN Administration Memantine 5 mg 09/16/24 00:25 09/30/24 09:25 Memantine 5 Mg Tablet PO 5 mg Q12HR KELIN Administration Metoprolol Tartrate 100 mg 09/16/24 00:25 09/30/24 09:26 Metoprolol Tartrate 50 Mg Tab PO 100 mg Q12HR KELIN Administration Ondansetron HCl 4 mg 09/15/24 12:45 Ondansetron Inj 4 Mg/2 Ml Vial IV PUSH Q4H PRN Nausea Pantoprazole Sodium 40 mg 09/16/24 09:00 09/30/24 09:26 Pantoprazole 40 Mg Tablet PO 40 mg DAILY KELIN Administration Polyethylene Glycol 17 gm 09/15/24 23:37 Polyethylene Glycol 3350 17 Gm Powd.Pack PO DAILY PRN Constipation Potassium Chloride 10 meq 09/16/24 09:00 09/30/24 09:25 Potassium Chloride 10 Meq Er Tablet PO 10 meq DAILY KELIN Administration Pregabalin 150 mg 09/16/24 00:25 09/30/24 09:27 Pregabalin (*Crx) 75 Mg Capsule PO 150 mg Q12HR KELIN Administration Primidone 100 mg 09/22/24 09:00 09/30/24 09:26 Primidone 50 Mg Tablet PO 100 mg TID KELIN Administration Rivaroxaban 20 mg 09/23/24 17:00 09/28/24 17:16 Rivaroxaban 20 Mg Tablet PO 20 mg DAILY@1700 KELIN Administration Sodium Chloride 2 spray 09/15/24 23:37 Saline 0.65% Gordo Soln 44 Ml Btl NASAL PRN PRN Congestion Vitamin B Complex 1 cap 09/16/24 09:00 09/30/24 11:07 Vitamin B Complex Capsule PO Not [facility] Vitamin D 5,000 units 09/16/24 09:00 09/30/24 09:25 Cholecalciferol 5,000 Units Tablet PO 5,000 units DAILY KELIN Administration Vitamin E 800 unit 09/16/24 09:00 09/30/24 11:07 Vitamin E 400 Unit Capsule PO Not Given DAILY [facility] Radiology Results: ITS Impressions Head CT 09/15/24 11:48 IMPRESSION: 1. 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 No acute intracranial process. 2. Age-related changes including moderate diffuse on loss and mild scattered white matter hypoattenuation consistent with chronic small vessel ischemic disease. Brain MRI 09/18/24 08:50 IMPRESSION: 1. Age-related changes in the brain. No acute intracranial process. 2. 1.3 x 1.2 x 0.9 cm T2 hyperintense intrasellar mass versus cystic lesion. 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 There is been no evident change in appearance of the pituitary on multiple prior CT studies dating back to thousand 19 which would argue against malignancy/metastases. Would recommend obtaining pre and postcontrast pituitary protocol MRI to distinguish solid versus cystic which would aid in narrowing the differential. Sella Turcica MRI 09/19/24 12:56 IMPRESSION: 1. 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 2. 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 Lumbar Puncture Fluoroscopy 09/19/24 14:00 IMPRESSION: 1. Successful fluoro-guided lumbar puncture. Chest X-Ray 09/24/24 07:39 Impression: Central pulmonary venous congestive change.
[2024-09-30] MEDS: ATORVASTATIN 10 MG TABLET PO (21:41)
[2024-10-01] VITALS (8 sets, daily range): BP systolic 154–193; BP diastolic 60–77; PULSE 65–100; RESP 16–20; TEMP 36.1–36.8; O2SAT 94–98
[2024-10-01] MEDS: LORazepam (*CRX) 0.5 MG TABLET PO ×2 (05:24→12:25)
--- NOTE | 2024-10-01 08:43 | P.PNIM_ITS ---
Progress Note: A&P Assessment and Plan (1) Altered mental status: Code(s): R41.82 - Altered mental status, unspecified Status: Acute (2) Sepsis: Qualifiers: Sepsis acute organ dysfunction status: unspecified Sepsis type: methicillin resistant Staphylococcus aureus Qualified Code(s): A41.02 - Sepsis due to Methicillin resistant Staphylococcus aureus Code(s): A41.9 - Sepsis, unspecified organism Status: Acute Plan AMS (altered mental status): Code(s): R41.82 - Altered mental status, unspecified Status: Acute Assessment and Plan: Patient presents with altered mental status. She has a normal baseline AOx3 with slow speech. 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 Patient presented with fevers on 09/15. LP performed 09/19 showing no RBCs and 1 WBCs with mostly lymphocytes. Gram stain showing rare WBC and no organisms. Glucose 97 and protein 51. Viral and bacterial meningitis unlikely but she was on abx prior to LP being performed so could be partially treated meningitis. Consider AMS related to polypharmacy. Consider catatonia. Symptoms seem to wax and wane - delirium? CSF HSV PCR negative. Acyclovir stopped. CSF bacterial cultures were NOT sent to [facility] (fungal cx sent); unable to determine if partially treated meningitis but felt less likely. Stop IV abx and monitor Primidone and Baclofen were cuts back. 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 Patient has dysphagia likely resulting from previous multiple stroke I had a long and thought discussions with patient's family: patient's and daughter about prognosis and goals of care, Patient daughter down man request to start feeding tube for G-tube consult GI for tube feeding placement, plans bed tube on Wednesday. Will place NG tube for feeding today 09/30 Patient feels better today, appetite is improving, mental status improving, patient declines NG tube feeding. Waiting patient family to make decision about tube feeding 10/01 Started PT/OT/ST. ST recommended dropping her from Level 5 to Level 4 Pureed diet which was done. Discussed with neurology. He recommended continuing to wean primidone every 7 days. Scheduled IV Ativan for possible catatonia. Did have some improvement yesterday but worse today. ABG ordered but this was okay. back off on Ativan. Stop IV abx. 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 p.o. per neurologist recommendation Discontinue furosemide 20 mg b.i.d. p.o. Gentle IV fluid with normal saline 75 mL/hour Patient cannot tolerate diet Sepsis: Qualifiers: Sepsis acute organ dysfunction status: unspecified Sepsis type: sepsis due to unspecified organism Qualified Code(s): A41.9 - Sepsis, unspecified organism Code(s): A41.9 - Sepsis, unspecified organism Status: Acute Assessment and Plan: Noted on admission with fevers, AMS and elevated white count. UTI has been ruled out. Blood cultures negative. Chest x-ray was clear on admission and repeat CXR clear on 09/18. Requiring O2 now. Repeat CXR 09/24 showing congestive changes so Lasix IV once given with good UOP No CSF cultures sent to [facility]. Stop abx and monitor. White blood cell within normal limit, patient is afebrile, Atrial fibrillation with RVR: Code(s): I48.91 - Unspecified atrial fibrillation Status: Acute Assessment and Plan: Review of chart showing she has AFib and was on Xarelto on prior admissions. In the paper chart, the papers from the [facility] sheets only had 5 of 6 sheets. Suspect the 6th sheet listed additional medications (including Xarelto). RN will call [facility] to get a complete list of patient's medications. Restarted Xarelto Hypertension: Code(s): I10 - Essential (primary) hypertension Status: Acute Assessment and Plan: Patient's blood pressure was reviewed on 09/26 Blood pressure with wide fluctuations. Hydralazine held. continue to monitor for now Acute and chronic respiratory failure: Qualifiers: Respiratory failure complication: hypoxia Qualified Code(s): J96.21 - Acute and chronic respiratory failure with hypoxia Code(s): J96.20 - Acute and chronic respiratory failure, unspecified whether with hypoxia or hypercapnia Status: Acute Assessment and Plan: ABG in ER - pH of 7.46, pCO2 33.0, PO2 67.4, bicarb 23.0, O2 94.6%. Patient presumably wears oxygen at the facility but has been weaned to room air here Continue CPAP at night and with naps as she allows. Obstructive sleep apnea: Code(s): G47.33 - Obstructive sleep apnea (adult) (pediatric) Status: Acute Assessment and Plan: Continue CPAP at night and with naps as she allows. UTI (urinary tract infection): Qualifiers: Hematuria presence: without hematuria Urinary tract infection type: acute cystitis Qualified Code(s): N30.00 - Acute cystitis without hematuria Code(s): N39.0 - Urinary tract infection, site not specified Status: Resolved Assessment and Plan: UA is consistent with UTI. UCx collected. 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 Abx started. BCx and UCx negative. UTI ruled out. She is having urine retention and unable to tolerate the Delarosa removed 09/25/24. Plan for discharge with Delarosa (8) Tachycardia: Code(s): R00.0 - Tachycardia, unspecified Status: Resolved Assessment and Plan: Probably related to above. Heart rate better controlled. No alarms by tele so tele stopped. I discussed case with Dr. Moran on the phone, he also considers the patient has severe dementia. Patient prognosis is poor, I have tried to reach to patient's family and left message to patient's Obed. I needed discussed with patient family above patient goal of care Subjective Date/time seen: 10/01/24 08:43 Interval history: I saw examined the patient today. Patient mental status status continue to improve. Appetite improving Patient states she feels better today, patient has no complaints. Patient is afebrile, blood pressure stable, on room air Exam Narrative: GENERAL: Lethargic, ill-appearing in no acute distress. Well-nourished. - EYES: EOMI. Anicteric. - HENT: Dry mucous membranes. - LUNGS: Clear to auscultation bilateral ly, no wheezing, rhonchi, or rales. - CARDIOVASCULAR: Regular rate and rhyth m. No murmur. No JVD. - ABDOMEN: Soft, non-tender and non-dist ended. No palpable masses. - EXTREMITIES: No edema. Peripheral puls es 2+. Non-tender. - NEUROLOGIC: No focal neurological defi cits. CN II-XII grossly intact. General weakness - PSYCHIATRIC: Alert and oriented x 3. Flat mood and affect. - SKIN: No rashes or lesions. Warm. - LYMPH: No cervical lymphadenopathy. Objective Data Vital Signs Vital Signs: Vital Signs - 24 hr 09/30/24 08:50 09/30/24 09:26 09/30/24 14:00 Temperature 98.5 F Pulse Rate 78 81 Respiratory Rate 20 Blood Pressure 161/61 H Pulse Oximetry 96 Oxygen Delivery Room Air Oxygen Flow Rate 09/30/24 20:00 09/30/24 21:42 09/30/24 21:42 Temperature 98.9 F Pulse Rate 104 H 103 H Respiratory Rate 16 Blood Pressure 195/70 H Pulse Oximetry 96 96 Oxygen Delivery Room Air Oxygen Flow Rate 09/30/24 23:05 10/01/24 03:00 10/01/24 05:10 Temperature 98.0 F Pulse Rate 68 83 Respiratory Rate 121 H 16 Blood Pressure 193/73 H Pulse Oximetry 96 94 96 Oxygen Delivery Autopap Nasal Cannula Oxygen Flow Rate 2 Intake/Output Intake/Output: Intake & Output 09/28/24 09/29/24 09/30/24 10/02/24 23:59 23:59 23:59 00:59 Intake Total 1300 2255 4527.5 500 Output Total 4200 3475 4750 1700 Balance -2900 -1220 -222.5 -1200 Meds/Results Medications: Active Medications Generic Name Dose Route Start Last Admin Trade Name Freq PRN Reason Stop Dose Admin Acetaminophen 650 mg 09/19/24 09:14 Acetaminophen 650 Mg Suppository RECTAL Q6H PRN Mild Pain (1-3) or Fever Acetaminophen 650 mg 09/19/24 10:07 09/30/24 09:26 Acetaminophen 325 Mg Tablet PO 650 mg Q6H PRN Administration Mild Pain (1-3) or Fever Amlodipine Besylate 10 mg 09/16/24 09:00 09/30/24 09:25 Amlodipine Besylate 10 Mg Tablet PO 10 mg DAILY KELIN Administration Artificial Tears 1 drop 09/15/24 23:37 Artificial Tears Ophth Soln 15 Ml Bottle EACH EYE QID PRN Dry Eye(S) Atorvastatin Calcium 10 mg 09/16/24 00:25 09/30/24 21:41 Atorvastatin 10 Mg Tablet PO 10 mg HS KELIN Administration Baclofen 5 mg 09/26/24 17:00 09/30/24 18:11 Baclofen 5 Mg Tablet PO 5 mg BID KELIN Administration Dextrose 12.5 gm 09/15/24 12:45 Dextrose 50% 25 Gm/50 Ml Syringe IV PUSH PRN PRN Hypoglycemia Protocol Diclofenac Sodium 1 applic 09/15/24 23:37 Diclofenac Sodium 1% 100 Gm Gel (*Bkc) TOPICAL BID PRN moderate pain (scale score 5-6) Fluticasone Propionate 2 spray 09/22/24 16:37 Fluticasone Propionate 0.05% Na Spr 16 Gm Btl (*Bkc) NASAL DAILY PRN Nasal Congestion Glucagon 1 mg 09/15/24 12:45 Glucagon For Inj 1 Mg Vial IM PRN PRN Hypoglycemia Protocol Glucose 15 gm 09/15/24 12:45 Glucose Oral Gel 15 Gm Of Glucse In 37.5 Gm Tube PO PRN PRN Hypoglycemia Protocol Guaifenesin 1,200 mg 09/16/24 09:00 09/30/24 18:11 Guaifenesin 12 Hr 600 Mg Tabcr PO 1,200 mg BID KELIN Administration Hydralazine HCl 10 mg 09/18/24 10:11 Hydralazine Hcl 20 Mg/Ml Vial IV PUSH Q8H PRN Blood Pressure - High Dextrose 1,000 mls @ 100 mls/hr 09/15/24 12:45 Dextrose 5% 1,000 Ml IVPB PRN PRN Hypoglycemia Protocol Sodium Chloride 1,000 mls @ 75 mls/hr 09/28/24 14:55 09/30/24 18:10 Normal Saline Iv IV CONT 75 mls/hr .[id number] KELIN Administration Isosorbide Mononitrate 30 mg 09/16/24 09:00 09/30/24 09:25 Isosorbide Mononitrate 30 Mg Tab.Er.24h PO 30 mg DAILY KELIN Administration Levalbuterol HCl 1.25 mg 09/22/24 08:41 Levalbuterol Neb 1.25 Mg/3 Ml INHALATION Q6HRT PRN Shortness Of Breath Lidocaine 2 patch 09/16/24 09:00 09/30/24 09:27 Lidocaine 5% Patch TOPICAL Not Given DAILY [facility] Lorazepam 0.5 mg 09/26/24 21:00 10/01/24 05:24 Lorazepam (*Crx) 0.5 Mg Tablet PO 0.5 mg Q8H KELIN Administration Losartan Potassium 100 mg 09/16/24 09:00 09/30/24 09:26 Losartan Potassium 100 Mg Tablet PO 100 mg DAILY KELIN Administration Memantine 5 mg 09/16/24 00:25 09/30/24 21:42 Memantine 5 Mg Tablet PO 5 mg Q12HR KELIN Administration Metoprolol Tartrate 100 mg 09/16/24 00:25 09/30/24 21:42 Metoprolol Tartrate 50 Mg Tab PO 100 mg Q12HR [facility] Administration Ondansetron HCl 4 mg 09/15/24 12:45 Ondansetron Inj 4 Mg/2 Ml Vial IV PUSH Q4H PRN Nausea Pantoprazole Sodium 40 mg 09/16/24 09:00 09/30/24 09:26 Pantoprazole 40 Mg Tablet PO 40 mg DAILY [facility] Administration Polyethylene Glycol 17 gm 09/15/24 23:37 Polyethylene Glycol 3350 17 Gm Powd.Pack PO DAILY PRN Constipation Potassium Chloride 10 meq 09/16/24 09:00 09/30/24 09:25 Potassium Chloride 10 Meq Er Tablet PO 10 meq DAILY [facility] Administration Pregabalin 150 mg 09/16/24 00:25 09/30/24 21:42 Pregabalin (*Crx) 75 Mg Capsule PO 150 mg Q12HR [facility] Administration Primidone 100 mg 09/22/24 09:00 09/30/24 18:11 Primidone 50 Mg Tablet PO 100 mg TID [facility] Administration Rivaroxaban 20 mg 09/23/24 17:00 09/28/24 17:16 Rivaroxaban 20 Mg Tablet PO 20 mg DAILY@1700 [facility] Administration Sodium Chloride 2 spray 09/15/24 23:37 Saline 0.65% Gordo Soln 44 Ml Btl NASAL PRN PRN Congestion Vitamin B Complex 1 cap 09/16/24 09:00 09/30/24 11:07 Vitamin B Complex Capsule PO Not Given QAM [facility] Vitamin D 5,000 units 09/16/24 09:00 09/30/24 09:25 Cholecalciferol 5,000 Units Tablet PO 5,000 units DAILY [facility] Administration Vitamin E 800 unit 09/16/24 09:00 09/30/24 11:07 Vitamin E 400 Unit Capsule PO Not Given DAILY KELIN Radiology Results: ITS Impressions Head CT 09/15/24 11:48 IMPRESSION: 1. 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 No acute intracranial process. 2. Age-related changes including moderate diffuse on loss and mild scattered white matter hypoattenuation consistent with chronic small vessel ischemic disease. Brain MRI 09/18/24 08:50 IMPRESSION: 1. Age-related changes in the brain. No acute intracranial process. 2. 1.3 x 1.2 x 0.9 cm T2 hyperintense intrasellar mass versus cystic lesion. 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 There is been no evident change in appearance of the pituitary on multiple prior CT studies dating back to 19 which would argue against malignancy/metastases. Would recommend obtaining pre and postcontrast pituitary protocol MRI to distinguish solid versus cystic which would aid in narrowing the differential. Sella Turcica MRI 09/19/24 12:56 IMPRESSION: 1. 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 2. 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 Lumbar Puncture Fluoroscopy 09/19/24 14:00 IMPRESSION: 1. Successful fluoro-guided lumbar puncture. Chest X-Ray 09/24/24 07:39 Impression: Central pulmonary venous congestive change.
[2024-10-01 09:35] LABS: Basophils Absolute Auto 0.1 K/mm3 (0.0-0.1); Basophils Percent Auto 0.7 % (0.2-1.2); Eosinophils Absolute Auto 0.2 K/mm3 (0-0.3); Eosinophils Percent Auto 2.7 % (0-4.4); Hematocrit 33.6 % (37.0-47.0); Immature Granulocyte Absolute 0.11 K/mm3 (0.00-0.031); Immature Granulocyte Percent A 1.6 % (0-0.5); Immature Platelet Fraction Pct 3.8 % (0.9-11.2); Lymphocytes Absolute Auto 1.44 K/mm3 (0.9-3.2); Lymphocytes Percent Auto 20.5 % (18.3-44.2); Mean Corpuscular HGB Conc 32.7 g/dl (32-36); Mean Corpuscular Hemoglobin 30.8 pg (26-34); Mean Corpuscular Volume 94.1 fl (80-100); Mean Platelet Volume 10.9 fl (7.4-10.4); Monocytes Absolute Auto 0.5 K/mm3 (0.1-0.6); Monocytes Percent Auto 7.7 % (2.6-8.5); Neutrophils Absolute Auto 4.7 K/mm3 (1.3-6.7); Neutrophils Percent Auto 66.8 % (45.5-73.1); Platelet Count Result 220 k/mm3 (150-375); Red Blood Count 3.57 M/mm3 (4.2-5.4); Red Cell Distribution Width 15.6 % (11.5-14.5)
[2024-10-01] MEDS: SODIUM CHLORIDE 0.9% IV 1,000 ML 75 ML IV CONT ×2 (09:42→23:57)
[2024-10-01 09:46] LABS: Anion Gap 8 mmol/L (4-12); Blood Urea Nitrogen 10 mg/dL (7-17); Calcium 8.3 mg/dL (8.4-10.2); Carbon Dioxide 22 mmol/L (22-30); Chloride 99 mmol/L (98-107); Estimated CRCL calculation 109 ml/min; Estimated Glomerular Filt Rate > 60; Glucose 145 mg/dL (65-110); Magnesium 1.6 mg/dL (1.6-2.3); Phosphorus 3.2 mg/dL (2.5-4.5); Potassium 4.3 mmol/L (3.4-5.0); Sodium 129 mmol/L (137-145)
[2024-10-01] MEDS: LOSARTAN POTASSIUM 100 MG TABLET PO (09:49)
[2024-10-01] MEDS: MEMANTINE 5 MG TABLET PO ×2 (09:49→20:58)
[2024-10-01] MEDS: METOPROLOL TARTRATE 50 MG TAB 100 MG PO ×2 (09:49→20:55)
[2024-10-01] MEDS: PRIMIDONE 50 MG TABLET 100 MG PO ×3 (09:49→16:29)
[2024-10-01] MEDS: VITAMIN E 400 UNIT CAPSULE 800 UNIT PO (09:49)
[2024-10-01] MEDS: PANTOPRAZOLE 40 MG TABLET PO (09:49)
[2024-10-01] MEDS: ISOSORBIDE MONONITRATE 30 MG TAB.ER.24H PO (09:49)
[2024-10-01] MEDS: CHOLECALCIFEROL 5,000 UNITS TABLET 5000 UNITS PO (09:50)
[2024-10-01] MEDS: PREGABALIN (*CRX) 75 MG CAPSULE 150 MG PO ×2 (09:50→20:57)
[2024-10-01] MEDS: guaiFENesin 12 HR 600 MG TABCR 1200 MG PO ×2 (09:50→16:29)
[2024-10-01] MEDS: VITAMIN B COMPLEX CAPSULE 1 CAP PO (09:50)
[2024-10-01] MEDS: BACLOFEN 5 MG TABLET PO ×2 (09:50→16:29)
[2024-10-01] MEDS: amLODIPine BESYLATE 10 MG TABLET PO (09:50)
[2024-10-01] MEDS: LIDOCAINE 5% PATCH 2 PATCH TOPICAL (09:54)
[2024-10-01] MEDS: POTASSIUM CHLORIDE 10 MEQ ER TABLET PO (09:54)
--- NOTE | 2024-10-01 12:41 | P.PNGI_ITS ---
Progress Note: A&P Assessment and Plan (1) Acute encephalopathy: Code(s): G93.40 - Encephalopathy, unspecified Status: Acute Assessment and Plan: awake but confused, poor oral intake if family is agreeable then we can place PEG tomorrow she is at risk of aspiration (2) Dysphagia: Qualifiers: Dysphagia type: esophageal phase Qualified Code(s): R13.19 - Other dysphagia Code(s): R13.10 - Dysphagia, unspecified Status: Acute (3) Hyponatremia: Code(s): E87.1 - Hypo-osmolality and hyponatremia Status: Acute (4) CVA (cerebral vascular accident): Code(s): I63.9 - Cerebral infarction, unspecified Status: Acute (5) Chronic anticoagulation: Code(s): Z79.01 - 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 - EYES: EOMI. Anicteric. - HENT: Dry mucous membranes. - LUNGS: Clear to auscultation bilateral ly. - CARDIOVASCULAR: Regular rate and rhyth m. - ABDOMEN: Soft, non-tender and non-dist ended. No palpable masses. - EXTREMITIES: No edema. - NEUROLOGIC: confused but awake - PSYCHIATRIC: difficult to assess - SKIN: No rashes or lesions. - LYMPH: No cervical lymphadenopathy. Objective Data Vital Signs Vital Signs: Vital Signs - 24 hr 09/30/24 14:00 09/30/24 20:00 09/30/24 21:42 Temperature 98.5 F Pulse Rate 81 104 H Respiratory Rate 20 Blood Pressure 161/61 H Pulse Oximetry 96 96 Oxygen Delivery Room Air Oxygen Flow Rate 09/30/24 21:42 09/30/24 23:05 10/01/24 03:00 Temperature 98.9 F Pulse Rate 103 H 68 Respiratory Rate 16 121 H Blood Pressure 195/70 H Pulse Oximetry 96 96 94 Oxygen Delivery Autopap Nasal Cannula Oxygen Flow Rate 2 10/01/24 05:10 10/01/24 09:47 10/01/24 09:49 Temperature 98.0 F 97.4 F L Pulse Rate 83 100 100 Respiratory Rate 16 18 Blood Pressure 193/73 H 186/73 H Pulse Oximetry 96 98 Oxygen Delivery Oxygen Flow Rate 10/01/24 09:49 10/01/24 12:32 Temperature 96.9 F L Pulse Rate 65 Respiratory Rate 16 Blood Pressure 154/77 H Pulse Oximetry 98 97 Oxygen Delivery Room Air Oxygen Flow Rate Intake/Output Intake/Output: Intake & Output 09/28/24 09/29/24 09/30/24 10/02/24 23:59 23:59 23:59 00:59 Intake Total 1300 2255 4527.5 2000 Output Total 4200 3475 4750 1700 Balance -2900 -1220 -222.5 300 Meds/Results Medications: Active Medications Generic Name Dose Route Start Last Admin Trade Name Freq PRN Reason Stop Dose Admin Acetaminophen 650 mg 09/19/24 09:14 Acetaminophen 650 Mg Suppository RECTAL Q6H PRN Mild Pain (1-3) or Fever Acetaminophen 650 mg 09/19/24 10:07 09/30/24 09:26 Acetaminophen 325 Mg Tablet PO 650 mg Q6H PRN Administration Mild Pain (1-3) or Fever Amlodipine Besylate 10 mg 09/16/24 09:00 10/01/24 09:50 Amlodipine Besylate 10 Mg Tablet PO 10 mg DAILY KELIN Administration Artificial Tears 1 drop 09/15/24 23:37 Artificial Tears Ophth Soln 15 Ml Bottle EACH EYE QID PRN Dry Eye(S) Atorvastatin Calcium 10 mg 09/16/24 00:25 09/30/24 21:41 Atorvastatin 10 Mg Tablet PO 10 mg HS KELIN Administration Baclofen 5 mg 09/26/24 17:00 10/01/24 09:50 Baclofen 5 Mg Tablet PO 5 mg BID KELIN Administration Dextrose 12.5 gm 09/15/24 12:45 Dextrose 50% 25 Gm/50 Ml Syringe IV PUSH PRN PRN Hypoglycemia Protocol Diclofenac Sodium 1 applic 09/15/24 23:37 Diclofenac Sodium 1% 100 Gm Gel (*Bkc) TOPICAL BID PRN moderate pain (scale score 5-6) Fluticasone Propionate 2 spray 09/22/24 16:37 Fluticasone Propionate 0.05% Na Spr 16 Gm Btl (*Bkc) NASAL DAILY PRN Nasal Congestion Glucagon 1 mg 09/15/24 12:45 Glucagon For Inj 1 Mg Vial IM PRN PRN Hypoglycemia Protocol Glucose 15 gm 09/15/24 12:45 Glucose Oral Gel 15 Gm Of Glucse In 37.5 Gm Tube PO PRN PRN Hypoglycemia Protocol Guaifenesin 1,200 mg 09/16/24 09:00 10/01/24 09:50 Guaifenesin 12 Hr 600 Mg Tabcr PO 1,200 mg BID KELIN Administration Hydralazine HCl 10 mg 09/18/24 10:11 Hydralazine Hcl 20 Mg/Ml Vial IV PUSH Q8H PRN Blood Pressure - High Dextrose 1,000 mls @ 100 mls/hr 09/15/24 12:45 Dextrose 5% 1,000 Ml IVPB PRN PRN Hypoglycemia Protocol Sodium Chloride 1,000 mls @ 75 mls/hr 09/28/24 14:55 10/01/24 09:42 Normal Saline Iv IV CONT 75 mls/hr .[id number] KELIN Administration Isosorbide Mononitrate 30 mg 09/16/24 09:00 10/01/24 09:49 Isosorbide Mononitrate 30 Mg Tab.Er.24h PO 30 mg DAILY KELIN Administration Levalbuterol HCl 1.25 mg 09/22/24 08:41 Levalbuterol Neb 1.25 Mg/3 Ml INHALATION Q6HRT PRN Shortness Of Breath Lidocaine 2 patch 09/16/24 09:00 10/01/24 09:54 Lidocaine 5% Patch TOPICAL 2 patch DAILY KELIN Administration Lorazepam 0.5 mg 09/26/24 21:00 10/01/24 12:25 Lorazepam (*Crx) 0.5 Mg Tablet PO 0.5 mg Q8H KELIN Administration Losartan Potassium 100 mg 09/16/24 09:00 10/01/24 09:49 Losartan Potassium 100 Mg Tablet PO 100 mg DAILY KELIN Administration Memantine 5 mg 09/16/24 00:25 10/01/24 09:49 Memantine 5 Mg Tablet PO 5 mg Q12HR KELIN Administration Metoprolol Tartrate 100 mg 09/16/24 00:25 10/01/24 09:49 Metoprolol Tartrate 50 Mg Tab PO 100 mg Q12HR K[facility] Administration Ondansetron HCl 4 mg 09/15/24 12:45 Ondansetron Inj 4 Mg/2 Ml Vial IV PUSH Q4H PRN Nausea Pantoprazole Sodium 40 mg 09/16/24 09:00 10/01/24 09:49 Pantoprazole 40 Mg Tablet PO 40 mg DAILY KELIN Administration Polyethylene Glycol 17 gm 09/15/24 23:37 Polyethylene Glycol 3350 17 Gm Powd.Pack PO DAILY PRN Constipation Potassium Chloride 10 meq 09/16/24 09:00 10/01/24 09:54 Potassium Chloride 10 Meq Er Tablet PO 10 meq DAILY KELIN Administration Pregabalin 150 mg 09/16/24 00:25 10/01/24 09:50 Pregabalin (*Crx) 75 Mg Capsule PO 150 mg Q12HR KELIN Administration Primidone 100 mg 09/22/24 09:00 10/01/24 12:25 Primidone 50 Mg Tablet PO 100 mg TID KELIN Administration Rivaroxaban 20 mg 09/23/24 17:00 09/28/24 17:16 Rivaroxaban 20 Mg Tablet PO 20 mg DAILY@1700 KELIN Administration Sodium Chloride 2 spray 09/15/24 23:37 Saline 0.65% Gordo Soln 44 Ml Btl NASAL PRN PRN Congestion Vitamin B Complex 1 cap 09/16/24 09:00 10/01/24 09:50 Vitamin B Complex Capsule PO 1 cap QAM KELIN Administration Vitamin D 5,000 units 09/16/24 09:00 10/01/24 09:50 Cholecalciferol 5,000 Units Tablet PO 5,000 units DAILY KELIN Administration Vitamin E 800 unit 09/16/24 09:00 10/01/24 09:49 Vitamin E 400 Unit Capsule PO 800 unit DAILY KELIN Administration Radiology Results: ITS Impressions Head CT 09/15/24 11:48 IMPRESSION: 1. 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 No acute intracranial process. 2. Age-related changes including moderate diffuse on loss and mild scattered white matter hypoattenuation consistent with chronic small vessel ischemic disease. Brain MRI 09/18/24 08:50 IMPRESSION: 1. Age-related changes in the brain. No acute intracranial process. 2. 1.3 x 1.2 x 0.9 cm T2 hyperintense intrasellar mass versus cystic lesion. 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 There is been no evident change in appearance of the pituitary on multiple prior CT studies dating back to thousand 17 which would argue against malignancy/metastases. Would recommend obtaining pre and postcontrast pituitary protocol MRI to distinguish solid versus cystic which would aid in narrowing the differential. S[facility] Turc[facility] MRI 09/19/24 12:56 IMPRESSION: 1. 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 2. 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 Lumbar Puncture Fluoroscopy 09/19/24 14:00 IMPRESSION: 1. Successful fluoro-guided lumbar puncture. Chest X-Ray 09/24/24 07:39 Impression: Central pulmonary venous congestive change. Labs Labs: Laboratory Results - last 24 hr 10/01/24 09:21 WBC 7.0 RBC 3.57 L Hgb 11.0 L Hct 33.6 L MCV 94.1 MCH 30.8 MCHC 32.7 RDW 15.6 H Plt Count 220 MPV 10.9 H Immature Gran % (Auto) 1.6 H Neut % (Auto) 66.8 Lymph % (Auto) 20.5 [place] % (Auto) 7.7 Eos % (Auto) 2.7 Baso % (Auto) 0.7 Lymph # (Auto) 1.44 [place] # (Auto) 0.5 Eos # (Auto) 0.2 Baso # (Auto) 0.1 Abs Immat Gran (auto) 0.11 H Absolute Neuts (auto) 4.7 Absolute Nucleated RBC 0.000 Nucleated RBC % 0.0 % Immature Plt Fraction 3.8 Sodium 129 L Potassium 4.3 Chloride 99 Carbon Dioxide 22 Anion Gap 8 BUN 10 D Creatinine 0.40 L Estim Creat Clear Calc 109 Estimated GFR > 60 Glucose 145 H Calcium 8.3 L Phosphorus 3.2 Magnesium 1.6
[2024-10-01] MEDS: ATORVASTATIN 10 MG TABLET PO (20:57)
[2024-10-02] VITALS (9 sets, daily range): BP systolic 168–189; BP diastolic 66–76; PULSE 70–94; RESP 14–18; TEMP 36.2–36.8; O2SAT 94–97
[2024-10-02 06:44] LABS: Basophils Absolute Auto 0.1 K/mm3 (0.0-0.1); Basophils Percent Auto 0.9 % (0.2-1.2); Eosinophils Absolute Auto 0.2 K/mm3 (0-0.3); Eosinophils Percent Auto 2.8 % (0-4.4); Hematocrit 37.3 % (37.0-47.0); Hemoglobin 11.7 g/dL (12.0-15.0); Immature Granulocyte Absolute 0.12 K/mm3 (0.00-0.031); Immature Granulocyte Percent A 1.6 % (0-0.5); Lymphocytes Absolute Auto 1.87 K/mm3 (0.9-3.2); Lymphocytes Percent Auto 25.1 % (18.3-44.2); Mean Corpuscular HGB Conc 31.4 g/dl (32-36); Mean Corpuscular Hemoglobin 31.1 pg (26-34); Mean Corpuscular Volume 99.2 fl (80-100); Mean Platelet Volume 10.4 fl (7.4-10.4); Monocytes Absolute Auto 0.7 K/mm3 (0.1-0.6); Monocytes Percent Auto 9.1 % (2.6-8.5); Neutrophils Absolute Auto 4.5 K/mm3 (1.3-6.7); Neutrophils Percent Auto 60.5 % (45.5-73.1); Platelet Count Result 222 k/mm3 (150-375); Red Blood Count 3.76 M/mm3 (4.2-5.4); Red Cell Distribution Width 15.9 % (11.5-14.5); White Blood Count 7.5 K/mm3 (4.5-10.0)
--- NOTE | 2024-10-02 08:51 | PM.IMPN ---
Progress Note: A&P Assessment and Plan (1) Altered mental status: Code(s): R41.82 - Altered mental status, unspecified Status: Acute (2) Sepsis: Qualifiers: Sepsis acute organ dysfunction status: unspecified Sepsis type: methicillin resistant Staphylococcus aureus Qualified Code(s): A41.02 - Sepsis due to Methicillin resistant Staphylococcus aureus Code(s): A41.9 - Sepsis, unspecified organism Status: Acute Plan AMS (altered mental status): Code(s): R41.82 - Altered mental status, unspecified Status: Acute Assessment and Plan: Patient presents with altered mental status. She has a normal baseline AOx3 with slow speech. 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 Patient presented with fevers on 09/15. LP performed 09/19 showing no RBCs and 1 WBCs with mostly lymphocytes. Gram stain showing rare WBC and no organisms. Glucose 97 and protein 51. Viral and bacterial meningitis unlikely but she was on abx prior to LP being performed so could be partially treated meningitis. Consider AMS related to polypharmacy. Consider catatonia. Symptoms seem to wax and wane - delirium? CSF HSV PCR negative. Acyclovir stopped. CSF bacterial cultures were NOT sent to [facility] (fungal cx sent); unable to determine if partially treated meningitis but felt less likely. Stop IV abx and monitor Primidone and Baclofen were cuts back. 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 Patient has dysphagia likely resulting from previous multiple stroke I had a long and thought discussions with patient's family: patient's and daughter about prognosis and goals of care, Patient daughter down man request to start feeding tube for G-tube consult GI for tube feeding placement, plans bed tube on Wednesday. Will place NG tube for feeding today 09/30 Patient feels better today, appetite is improving, mental status improving, patient declines NG tube feeding. Waiting patient family to make decision about tube feeding 10/01 Started PT/OT/ST. ST recommended dropping her from Level 5 to Level 4 Pureed diet which was done. Discussed with neurology. He recommended continuing to wean primidone every 7 days. Scheduled IV Ativan for possible catatonia. Did have some improvement yesterday but worse today. ABG ordered but this was okay. back off on Ativan. Stop IV abx. 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 p.o. per neurologist recommendation Discontinue furosemide 20 mg b.i.d. p.o. Gentle IV fluid with normal saline 75 mL/hour Patient cannot tolerate diet well, Sodium is going up slowly 131 today Sepsis: Qualifiers: Sepsis acute organ dysfunction status: unspecified Sepsis type: sepsis due to unspecified organism Qualified Code(s): A41.9 - Sepsis, unspecified organism Code(s): A41.9 - Sepsis, unspecified organism Status: Acute Assessment and Plan: Noted on admission with fevers, AMS and elevated white count. UTI has been ruled out. Blood cultures negative. Chest x-ray was clear on admission and repeat CXR clear on 09/18. Requiring O2 now. Repeat CXR 09/24 showing congestive changes so Lasix IV once given with good UOP No CSF cultures sent to [facility]. Stop abx and monitor. White blood cell within normal limit, patient is afebrile, Atrial fibrillation with RVR: Code(s): I48.91 - Unspecified atrial fibrillation Status: Acute Assessment and Plan: Review of chart showing she has AFib and was on Xarelto on prior admissions. In the paper chart, the papers from the long term sheets only had 5 of 6 sheets. Suspect the 6th sheet listed additional medications (including Xarelto). RN will call long term to get a complete list of patient's medications. Restarted Xarelto Hypertension: Code(s): I10 - Essential (primary) hypertension Status: Acute Assessment and Plan: Patient's blood pressure was reviewed on 09/26 Blood pressure with wide fluctuations. Hydralazine held. continue to monitor for now Acute and chronic respiratory failure: Qualifiers: Respiratory failure complication: hypoxia Qualified Code(s): J96.21 - Acute and chronic respiratory failure with hypoxia Code(s): J96.20 - Acute and chronic respiratory failure, unspecified whether with hypoxia or hypercapnia Status: Acute Assessment and Plan: ABG in ER - pH of 7.46, pCO2 33.0, PO2 67.4, bicarb 23.0, O2 94.6%. Patient presumably wears oxygen at the facility but has been weaned to room air here Continue CPAP at night and with naps as she allows. Obstructive sleep apnea: Code(s): G47.33 - Obstructive sleep apnea (adult) (pediatric) Status: Acute Assessment and Plan: Continue CPAP at night and with naps as she allows. UTI (urinary tract infection): Qualifiers: Hematuria presence: without hematuria Urinary tract infection type: acute cystitis Qualified Code(s): N30.00 - Acute cystitis without hematuria Code(s): N39.0 - Urinary tract infection, site not specified Status: Resolved Assessment and Plan: UA is consistent with UTI. UCx collected. 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 Abx started. BCx and UCx negative. UTI ruled out. She is having urine retention and unable to tolerate the Delarosa removed 09/25/24. Plan for discharge with Delarosa (8) Tachycardia: Code(s): R00.0 - Tachycardia, unspecified Status: Resolved Assessment and Plan: Probably related to above. Heart rate better controlled. No alarms by tele so tele stopped. I discussed case with Dr. Moran on the phone, he also considers the patient has severe dementia. Patient prognosis is poor, I have tried to reach to patient's family and left message to patient's Obed. we needed discussed with patient family above patient goal of care If patient condition continues to improve tomorrow, patient will be discharged to long term Subjective Date/time seen: 10/02/24 08:51 Interval history: I saw examined the patient today. Patient has no appetite today, ate a little in the morning. Patient denies abdomen pain, nausea vomiting. Patient is afebrile, blood pressure stable, on room air Exam Narrative: GENERAL: Lethargic, ill-appearing in no acute distress. Well-nourished. - EYES: EOMI. Anicteric. - HENT: Dry mucous membranes. - LUNGS: Clear to auscultation bilaterally, no wheezing, rhonchi, or rales. - CARDIOVASCULAR: Regular rate and rhythm. No murmur. No JVD. - ABDOMEN: Soft, non-tender and non-distended. No palpable masses. - EXTREMITIES: No edema. Peripheral pulses 2+. Non-tender. - NEUROLOGIC: No focal neurological deficits. CN II-XII grossly intact. General weakness - PSYCHIATRIC: Alert and oriented x to place and person. Flat mood and affect. - SKIN: No rashes or lesions. Warm. - LYMPH: No cervical lymphadenopathy. Objective Data Vital Signs Vital Signs: Vital Signs - 24 hr 10/01/24 09:47 10/01/24 09:49 10/01/24 09:49 Temperature 97.4 F L Pulse Rate 100 100 Respiratory Rate 18 Blood Pressure 186/73 H Pulse Oximetry 98 98 Oxygen Delivery Room Air 10/01/24 12:32 10/01/24 14:00 10/01/24 20:55 Temperature 96.9 F L 98.3 F 98.3 F Pulse Rate 65 74 78 Respiratory Rate 16 20 20 Blood Pressure 154/77 H 172/62 H 176/60 H Pulse Oximetry 97 98 96 Oxygen Delivery 10/01/24 20:55 10/01/24 22:00 10/02/24 00:13 Temperature 97.8 F Pulse Rate 80 72 70 Respiratory Rate 18 17 Blood Pressure 188/69 H Pulse Oximetry 95 96 Oxygen Delivery Autopap 10/02/24 06:00 Temperature 98.3 F Pulse Rate 81 Respiratory Rate 18 Blood Pressure 186/71 H Pulse Oximetry 97 Oxygen Delivery Intake/Output Intake/Output: Intake & Output 09/29/24 09/30/24 10/02/24 10/02/24 23:59 23:59 00:59 23:59 Intake Total 2255 4527.5 4150 Output Total 3475 4750 5360 1700 Balance -1220 -222.5 -1210 -1700 Meds/Results Medications: Active Medications Generic Name Dose Route Start Last Admin Trade Name Freq PRN Reason Stop Dose Admin Acetaminophen 650 mg 09/19/24 09:14 Acetaminophen 650 Mg Suppository RECTAL Q6H PRN Mild Pain (1-3) or Fever Acetaminophen 650 mg 09/19/24 10:07 09/30/24 09:26 Acetaminophen 325 Mg Tablet PO 650 mg Q6H PRN Administration Mild Pain (1-3) or Fever Amlodipine Besylate 10 mg 09/16/24 09:00 10/01/24 09:50 Amlodipine Besylate 10 Mg Tablet PO 10 mg DAILY KELIN Administration Artificial Tears 1 drop 09/15/24 23:37 Artificial Tears Ophth Soln 15 Ml Bottle EACH EYE QID PRN Dry Eye(S) Atorvastatin Calcium 10 mg 09/16/24 00:25 10/01/24 20:57 Atorvastatin 10 Mg Tablet PO 10 mg HS KELIN Administration Baclofen 5 mg 09/26/24 17:00 10/01/24 16:29 Baclofen 5 Mg Tablet PO 5 mg BID KELIN Administration Cefazolin Sodium 1 gm 10/02/24 12:40 Cefazolin Sodium 1 Gm Vial IV PUSH 10/02/24 12:41 ONCE ONE Dextrose 12.5 gm 09/15/24 12:45 Dextrose 50% 25 Gm/50 Ml Syringe IV PUSH PRN PRN Hypoglycemia Protocol Diclofenac Sodium 1 applic 09/15/24 23:37 Diclofenac Sodium 1% 100 Gm Gel (*Bkc) TOPICAL BID PRN moderate pain (scale score 5-6) Fluticasone Propionate 2 spray 09/22/24 16:37 Fluticasone Propionate 0.05% Na Spr 16 Gm Btl (*Bkc) NASAL DAILY PRN Nasal Congestion Glucagon 1 mg 09/15/24 12:45 Glucagon For Inj 1 Mg Vial IM PRN PRN Hypoglycemia Protocol Glucose 15 gm 09/15/24 12:45 Glucose Oral Gel 15 Gm Of Glucse In 37.5 Gm Tube PO PRN PRN Hypoglycemia Protocol Guaifenesin 1,200 mg 09/16/24 09:00 10/01/24 16:29 Guaifenesin 12 Hr 600 Mg Tabcr PO 1,200 mg BID KELIN Administration Hydralazine HCl 10 mg 09/18/24 10:11 Hydralazine Hcl 20 Mg/Ml Vial IV PUSH Q8H PRN Blood Pressure - High Dextrose 1,000 mls @ 100 mls/hr 09/15/24 12:45 Dextrose 5% 1,000 Ml IVPB PRN PRN Hypoglycemia Protocol Sodium Chloride 1,000 mls @ 75 mls/hr 09/28/24 14:55 10/01/24 23:57 Normal Saline Iv IV CONT 75 mls/hr .[id number] KELIN Administration Isosorbide Mononitrate 30 mg 09/16/24 09:00 10/01/24 09:49 Isosorbide Mononitrate 30 Mg Tab.Er.24h PO 30 mg DAILY KELIN Administration Levalbuterol HCl 1.25 mg 09/22/24 08:41 Levalbuterol Neb 1.25 Mg/3 Ml INHALATION Q6HRT PRN Shortness Of Breath Lidocaine 2 patch 09/16/24 09:00 10/01/24 09:54 Lidocaine 5% Patch TOPICAL 2 patch DAILY KELIN Administration Lorazepam 0.5 mg 09/26/24 21:00 10/02/24 06:08 Lorazepam (*Crx) 0.5 Mg Tablet PO Not Given Q8H KELIN Losartan Potassium 100 mg 09/16/24 09:00 10/01/24 09:49 Losartan Potassium 100 Mg Tablet PO 100 mg DAILY KELIN Administration Memantine 5 mg 09/16/24 00:25 10/01/24 20:58 Memantine 5 Mg Tablet PO 5 mg Q12HR KELIN Administration Metoprolol Tartrate 100 mg 09/16/24 00:25 10/01/24 20:55 Metoprolol Tartrate 50 Mg Tab PO 100 mg Q12HR KELIN Administration Ondansetron HCl 4 mg 09/15/24 12:45 Ondansetron Inj 4 Mg/2 Ml Vial IV PUSH Q4H PRN Nausea Pantoprazole Sodium 40 mg 09/16/24 09:00 10/01/24 09:49 Pantoprazole 40 Mg Tablet PO 40 mg DAILY KELIN Administration Polyethylene Glycol 17 gm 09/15/24 23:37 Polyethylene Glycol 3350 17 Gm Powd.Pack PO DAILY PRN Constipation Potassium Chloride 10 meq 09/16/24 09:00 10/01/24 09:54 Potassium Chloride 10 Meq Er Tablet PO 10 meq DAILY KELIN Administration Pregabalin 150 mg 09/16/24 00:25 10/01/24 20:57 Pregabalin (*Crx) 75 Mg Capsule PO 150 mg Q12HR KELIN Administration Primidone 100 mg 09/22/24 09:00 10/01/24 16:29 Primidone 50 Mg Tablet PO 100 mg TID KELIN Administration Rivaroxaban 20 mg 09/23/24 17:00 09/28/24 17:16 Rivaroxaban 20 Mg Tablet PO 20 mg DAILY@1700 KELIN Administration Sodium Chloride 2 spray 09/15/24 23:37 Saline 0.65% Gordo Soln 44 Ml Btl NASAL PRN PRN Congestion Vitamin B Complex 1 cap 09/16/24 09:00 10/01/24 09:50 Vitamin B Complex Capsule PO 1 cap QAM KELIN Administration Vitamin D 5,000 units 09/16/24 09:00 10/01/24 09:50 Cholecalciferol 5,000 Units Tablet PO 5,000 units DAILY KELIN Administration Vitamin E 800 unit 09/16/24 09:00 10/01/24 09:49 Vitamin E 400 Unit Capsule PO 800 unit DAILY KELIN Administration Radiology Results: ITS Impressions Head CT 09/15/24 11:48 IMPRESSION: 1. 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 No acute intracranial process. 2. Age-related changes including moderate diffuse on loss and mild scattered white matter hypoattenuation consistent with chronic small vessel ischemic disease. Brain MRI 09/18/24 08:50 IMPRESSION: 1. Age-related changes in the brain. No acute intracranial process. 2. 1.3 x 1.2 x 0.9 cm T2 hyperintense intrasellar mass versus cystic lesion. 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 There is been no evident change in appearance of the pituitary on multiple prior CT studies dating back to thousand 17 which would argue against malignancy/metastases. Would recommend obtaining pre and postcontrast pituitary protocol MRI to distinguish solid versus cystic which would aid in narrowing the differential. Sella Turcica MRI 09/19/24 12:56 IMPRESSION: 1. 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 2. 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 Lumbar Puncture Fluoroscopy 09/19/24 14:00 IMPRESSION: 1. Successful fluoro-guided lumbar puncture. Chest X-Ray 09/24/24 07:39 Impression: Central pulmonary venous congestive change. Labs Labs: Laboratory Results - last 24 hr 10/01/24 10/02/24 09:21 06:37 WBC 7.0 7.5 RBC 3.57 L 3.76 L Hgb 11.0 L 11.7 L Hct 33.6 L 37.3 MCV 94.1 99.2 D MCH 30.8 31.1 MCHC 32.7 31.4 L RDW 15.6 H 15.9 H Plt Count 220 222 MPV 10.9 H 10.4 Immature Gran % (Auto) 1.6 H 1.6 H Neut % (Auto) 66.8 60.5 Lymph % (Auto) 20.5 25.1 Mercer % (Auto) 7.7 9.1 H Eos % (Auto) 2.7 2.8 Baso % (Auto) 0.7 0.9 Lymph # (Auto) 1.44 1.87 Mercer # (Auto) 0.5 0.7 H Eos # (Auto) 0.2 0.2 Baso # (Auto) 0.1 0.1 Abs Immat Gran (auto) 0.11 H 0.12 H Absolute Neuts (auto) 4.7 4.5 Absolute Nucleated RBC 0.000 0.000 Nucleated RBC % 0.0 0.0 % Immature Plt Fraction 3.8 Sodium 129 L Potassium 4.3 Chloride 99 Carbon Dioxide 22 Anion Gap 8 BUN 10 D Creatinine 0.40 L Estim Creat Clear Calc 109 Estimated GFR > 60 Glucose 145 H Calcium 8.3 L Phosphorus 3.2 Magnesium 1.6
[2024-10-02 09:30] LABS: Anion Gap 8 mmol/L (4-12); Blood Urea Nitrogen 9 mg/dL (7-17); Calcium 8.7 mg/dL (8.4-10.2); Carbon Dioxide 23 mmol/L (22-30); Chloride 100 mmol/L (98-107); Estimated CRCL calculation 105 ml/min; Estimated Glomerular Filt Rate > 60; Glucose 99 mg/dL (65-110); Magnesium 1.7 mg/dL (1.6-2.3); Phosphorus 3.9 mg/dL (2.5-4.5); Potassium 4.4 mmol/L (3.4-5.0); Sodium 131 mmol/L (137-145)
[2024-10-02] MEDS: LOSARTAN POTASSIUM 100 MG TABLET PO (09:31)
[2024-10-02] MEDS: VITAMIN B COMPLEX CAPSULE 1 CAP PO (09:31)
[2024-10-02] MEDS: amLODIPine BESYLATE 10 MG TABLET PO (09:31)
[2024-10-02] MEDS: guaiFENesin 12 HR 600 MG TABCR 1200 MG PO ×2 (09:32→17:42)
[2024-10-02] MEDS: CHOLECALCIFEROL 5,000 UNITS TABLET 5000 UNITS PO (09:32)
[2024-10-02] MEDS: METOPROLOL TARTRATE 50 MG TAB 100 MG PO ×2 (09:32→20:05)
[2024-10-02] MEDS: POTASSIUM CHLORIDE 10 MEQ ER TABLET PO (09:32)
[2024-10-02] MEDS: BACLOFEN 5 MG TABLET PO ×2 (09:32→17:42)
[2024-10-02] MEDS: MEMANTINE 5 MG TABLET PO ×2 (09:32→20:05)
[2024-10-02] MEDS: PREGABALIN (*CRX) 75 MG CAPSULE 150 MG PO ×2 (09:32→20:05)
[2024-10-02] MEDS: PRIMIDONE 50 MG TABLET 100 MG PO ×3 (09:32→17:42)
[2024-10-02] MEDS: PANTOPRAZOLE 40 MG TABLET PO (09:32)
[2024-10-02] MEDS: VITAMIN E 400 UNIT CAPSULE 800 UNIT PO (09:32)
[2024-10-02] MEDS: ISOSORBIDE MONONITRATE 30 MG TAB.ER.24H PO (09:32)
--- NOTE | 2024-10-02 09:45 | PCNFU ---
Nutrition Follow-Up Complete: Severe protein calorie malnutrition related to acute loss of appetite, as evidenced by intakes <50% needs >5 days; weight loss -7%/2 weeks. Goal: Improve PO intake to at least 50% meals and supplements Patient is not meeting current goal. Pt current nutrition is NPO. Nutrition recommendation: Jevity 1.5 at 55 ml/hr. Last recorded weight is 86.5 kg, no new weight to report, recommend new weight. Bowel Motility: +BM reported 10/01 Labs Reviewed:Cr 0.6, Na 131 Meds Noted: Vit D, B complex, Vit E, NS, Protonix. Skin: WNL Additional Notes: Patient currently NPO. Spoke with nurse today, discussion regarding possible PEG today. If patient does get PEG today recommend tube feedings of Jevity 1.5 at 20 ml/hr advance by 10 ml q 4 hours to goal rate of 55 ml/hr providing 1815 kcal/77 gm protein/920 ml water. Flush 100 ml q 4 hours. Monitoring intakes, weights, labs, output, meds, diet orders, plan of care every Wednesday and Wednesday.
[2024-10-02] MEDS: hydrALAZINE HCL 20 MG/ML VIAL 10 MG IV PUSH ×2 (12:11→20:02)
--- NOTE | 2024-10-02 13:52 | PCSTNOTE ---
Please refer to the Bedside Swallow Evaluation in the EMR. Please note, silent aspiration cannot be ruled out at bedside.
--- NOTE | 2024-10-02 14:00 | P.CDI_ITS ---
CDI Query Clarification Request Encephalopathy has been documented. Please clarify type of encephalopathy: * Metabolic * Toxic * Hepatic * Hypertensive * Other * Unable to Determine Acute encephalopathy has been documented by one provider, but AMS as been documented by another. Please clarify if acute encephalopathy has been ruled in or ruled out and please clarify type of encephalopathy if known. The medical chart reflects the following: (1) Acute encephalopathy: Code(s): G93.40 - Encephalopathy, unspecified Status: Acute Assessment and Plan: she is lethargic had some ensure but still poor oral intake and she is at risk of aspiration daughter is coming tomorrow and then will decide if they would like to have G- tube placement on Wednesday AMS (altered mental status): Code(s): R41.82 - Altered mental status, unspecified Status: Acute Assessment and Plan: Patient presents with altered mental status. She has a normal baseline AOx3 with slow speech. 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 Patient presented with fevers on 09/15. LP performed 09/19 showing no RBCs and 1 WBCs with mostly lymphocytes. Gram stain showing rare WBC and no organisms. Glucose 97 and protein 51. Viral and bacterial meningitis unlikely but she was on abx prior to LP being performed so could be partially treated meningitis. Consider AMS related to polypharmacy. Consider catatonia. Symptoms seem to wax and wane - delirium? <Sara Mcmahon RN - Last Filed: 10/02/24 14:03> Clarified Diagnosis Clarified Diagnosis: Patient may have acute encephalopathy due to metabolic disorder <Michael Brooks MD - Last Filed: 10/02/24 15:09>
--- NOTE | 2024-10-02 18:02 | P.PNGI_ITS ---
Progress Note: A&P Assessment and Plan (1) Acute encephalopathy: Code(s): G93.40 - Encephalopathy, unspecified Status: Acute Assessment and Plan: oral intake still not adequate but has improved she refused PEG and family member did not make a decision please call us again if anything changes, will sign off continue with diet as tolerated for now (2) Dysphagia: Qualifiers: Dysphagia type: esophageal phase Qualified Code(s): R13.19 - Other dysphagia Code(s): R13.10 - Dysphagia, unspecified Status: Acute (3) Hyponatremia: Code(s): E87.1 - Hypo-osmolality and hyponatremia Status: Acute (4) CVA (cerebral vascular accident): Code(s): I63.9 - Cerebral infarction, unspecified Status: Acute (5) Chronic anticoagulation: Code(s): Z79.01 - 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 - EYES: EOMI. Anicteric. - HENT: no changes - LUNGS: Clear to auscultation bilateral ly. - CARDIOVASCULAR: Regular rate and rhyth m. - ABDOMEN: Soft, non-tender and non-dist ended. No palpable masses. - EXTREMITIES: No edema. - NEUROLOGIC: confused but awake and mor e alert - PSYCHIATRIC: difficult to assess - SKIN: No rashes or lesions. - LYMPH: No cervical lymphadenopathy. Objective Data Vital Signs Vital Signs: Vital Signs - 24 hr 10/01/24 20:55 10/01/24 20:55 10/01/24 22:00 Temperature 98.3 F 97.8 F Pulse Rate 78 80 72 Respiratory Rate 20 18 Blood Pressure 176/60 H 188/69 H Pulse Oximetry 96 95 Oxygen Delivery 10/02/24 00:13 10/02/24 06:00 10/02/24 09:28 Temperature 98.3 F 97.7 F Pulse Rate 70 81 92 Respiratory Rate 17 18 16 Blood Pressure 186/71 H 189/76 H Pulse Oximetry 96 97 96 Oxygen Delivery Autopap 10/02/24 09:32 10/02/24 09:32 10/02/24 12:09 Temperature 97.2 F L Pulse Rate 92 81 Respiratory Rate 14 Blood Pressure 170/66 H Pulse Oximetry 96 94 Oxygen Delivery Room Air 10/02/24 14:00 Temperature 98.0 F Pulse Rate 81 Respiratory Rate 18 Blood Pressure 168/69 H Pulse Oximetry 95 Oxygen Delivery Intake/Output Intake/Output: Intake & Output 09/29/24 09/30/24 10/02/24 10/02/24 23:59 23:59 00:59 23:59 Intake Total 2255 4527.5 4150 261 Output Total 3475 4750 5360 3250 Balance -1220 -222.5 -1210 -2989 Meds/Results Medications: Active Medications Generic Name Dose Route Start Last Admin Trade Name Freq PRN Reason Stop Dose Admin Acetaminophen 650 mg 09/19/24 09:14 Acetaminophen 650 Mg Suppository RECTAL Q6H PRN Mild Pain (1-3) or Fever Acetaminophen 650 mg 09/19/24 10:07 09/30/24 09:26 Acetaminophen 325 Mg Tablet PO 650 mg Q6H PRN Administration Mild Pain (1-3) or Fever Amlodipine Besylate 10 mg 09/16/24 09:00 10/02/24 09:31 Amlodipine Besylate 10 Mg Tablet PO 10 mg DAILY KELIN Administration Artificial Tears 1 drop 09/15/24 23:37 Artificial Tears Ophth Soln 15 Ml Bottle EACH EYE QID PRN Dry Eye(S) Atorvastatin Calcium 10 mg 09/16/24 00:25 10/01/24 20:57 Atorvastatin 10 Mg Tablet PO 10 mg HS KELIN Administration Baclofen 5 mg 09/26/24 17:00 10/02/24 17:42 Baclofen 5 Mg Tablet PO 5 mg BID KELIN Administration Dextrose 12.5 gm 09/15/24 12:45 Dextrose 50% 25 Gm/50 Ml Syringe IV PUSH PRN PRN Hypoglycemia Protocol Diclofenac Sodium 1 applic 09/15/24 23:37 Diclofenac Sodium 1% 100 Gm Gel (*Bkc) TOPICAL BID PRN moderate pain (scale score 5-6) Fluticasone Propionate 2 spray 09/22/24 16:37 Fluticasone Propionate 0.05% Na Spr 16 Gm Btl (*Bkc) NASAL DAILY PRN Nasal Congestion Glucagon 1 mg 09/15/24 12:45 Glucagon For Inj 1 Mg Vial IM PRN PRN Hypoglycemia Protocol Glucose 15 gm 09/15/24 12:45 Glucose Oral Gel 15 Gm Of Glucse In 37.5 Gm Tube PO PRN PRN Hypoglycemia Protocol Guaifenesin 1,200 mg 09/16/24 09:00 10/02/24 17:42 Guaifenesin 12 Hr 600 Mg Tabcr PO 1,200 mg BID KELIN Administration Hydralazine HCl 10 mg 10/02/24 08:51 10/02/24 12:11 Hydralazine Hcl 20 Mg/Ml Vial IV PUSH 10 mg Q4H PRN Administration Blood Pressure - High Dextrose 1,000 mls @ 100 mls/hr 09/15/24 12:45 Dextrose 5% 1,000 Ml IVPB PRN PRN Hypoglycemia Protocol Isosorbide Mononitrate 30 mg 09/16/24 09:00 10/02/24 09:32 Isosorbide Mononitrate 30 Mg Tab.Er.24h PO 30 mg DAILY KELIN Administration Levalbuterol HCl 1.25 mg 09/22/24 08:41 Levalbuterol Neb 1.25 Mg/3 Ml INHALATION Q6HRT PRN Shortness Of Breath Lidocaine 2 patch 09/16/24 09:00 10/02/24 09:33 Lidocaine 5% Patch TOPICAL Not Given DAILY KELIN Lorazepam 0.5 mg 10/02/24 12:05 Lorazepam (*Crx) 0.5 Mg Tablet PO Q8H PRN Anxiety Losartan Potassium 100 mg 09/16/24 09:00 10/02/24 09:31 Losartan Potassium 100 Mg Tablet PO 100 mg DAILY KELIN Administration Memantine 5 mg 09/16/24 00:25 10/02/24 09:32 Memantine 5 Mg Tablet PO 5 mg Q12HR KELIN Administration Metoprolol Tartrate 100 mg 09/16/24 00:25 10/02/24 09:32 Metoprolol Tartrate 50 Mg Tab PO 100 mg Q12HR KELIN Administration Ondansetron HCl 4 mg 09/15/24 12:45 Ondansetron Inj 4 Mg/2 Ml Vial IV PUSH Q4H PRN Nausea Pantoprazole Sodium 40 mg 09/16/24 09:00 10/02/24 09:32 Pantoprazole 40 Mg Tablet PO 40 mg DAILY KELIN Administration Polyethylene Glycol 17 gm 09/15/24 23:37 Polyethylene Glycol 3350 17 Gm Powd.Pack PO DAILY PRN Constipation Potassium Chloride 10 meq 09/16/24 09:00 10/02/24 09:32 Potassium Chloride 10 Meq Er Tablet PO 10 meq DAILY KELIN Administration Pregabalin 150 mg 09/16/24 00:25 10/02/24 09:32 Pregabalin (*Crx) 75 Mg Capsule PO 150 mg Q12HR KELIN Administration Primidone 100 mg 09/22/24 09:00 10/02/24 17:42 Primidone 50 Mg Tablet PO 100 mg TID KELIN Administration Rivaroxaban 20 mg 09/23/24 17:00 09/28/24 17:16 Rivaroxaban 20 Mg Tablet PO 20 mg DAILY@1700 KELIN Administration Sodium Chloride 2 spray 09/15/24 23:37 Saline 0.65% Gordo Soln 44 Ml Btl NASAL PRN PRN Congestion Vitamin B Complex 1 cap 09/16/24 09:00 10/02/24 09:31 Vitamin B Complex Capsule PO 1 cap QAM KELIN Administration Vitamin D 5,000 units 09/16/24 09:00 10/02/24 09:32 Cholecalciferol 5,000 Units Tablet PO 5,000 units DAILY KELIN Administration Vitamin E 800 unit 09/16/24 09:00 10/02/24 09:32 Vitamin E 400 Unit Capsule PO 800 unit DAILY KELIN Administration Radiology Results: ITS Impressions Head CT 09/15/24 11:48 IMPRESSION: 1. 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 No acute intracranial process. 2. Age-related changes including moderate diffuse on loss and mild scattered white matter hypoattenuation consistent with chronic small vessel ischemic disease. Brain MRI 09/18/24 08:50 IMPRESSION: 1. Age-related changes in the brain. No acute intracranial process. 2. 1.3 x 1.2 x 0.9 cm T2 hyperintense intrasellar mass versus cystic lesion. 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 There is been no evident change in appearance of the pituitary on multiple prior CT studies dating back to thousand 17 which would argue against malignancy/metastases. Would recommend obtaining pre and postcontrast pituitary protocol MRI to distinguish solid versus cystic which would aid in narrowing the differential. Sella Turcica MRI 09/19/24 12:56 IMPRESSION: 1. 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 2. 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 Lumbar Puncture Fluoroscopy 09/19/24 14:00 IMPRESSION: 1. Successful fluoro-guided lumbar puncture. Chest X-Ray 09/24/24 07:39 Impression: Central pulmonary venous congestive change. Labs Labs: Laboratory Results - last 24 hr 10/02/24 10/02/24 06:37 07:56 WBC 7.5 RBC 3.76 L Hgb 11.7 L Hct 37.3 MCV 99.2 D MCH 31.1 MCHC 31.4 L RDW 15.9 H Plt Count 222 MPV 10.4 Immature Gran % (Auto) 1.6 H Neut % (Auto) 60.5 Lymph % (Auto) 25.1 [place] % (Auto) 9.1 H Eos % (Auto) 2.8 Baso % (Auto) 0.9 Lymph # (Auto) 1.87 [place] # (Auto) 0.7 H Eos # (Auto) 0.2 Baso # (Auto) 0.1 Abs Immat Gran (auto) 0.12 H Absolute Neuts (auto) 4.5 Absolute Nucleated RBC 0.000 Nucleated RBC % 0.0 Sodium 131 L Potassium 4.4 Chloride 100 Carbon Dioxide 23 Anion Gap 8 BUN 9 Creatinine 0.42 L Estim Creat Clear Calc 105 Estimated GFR > 60 Glucose 99 Calcium 8.7 Phosphorus 3.9 Magnesium 1.7
[2024-10-02] MEDS: ATORVASTATIN 10 MG TABLET PO (20:05)
[2024-10-03] VITALS (8 sets, daily range): BP systolic 143–185; BP diastolic 63–90; PULSE 78–100; RESP 16–18; TEMP 36.3–36.4; O2SAT 96–99
[2024-10-03 07:35] LABS: Basophils Percent Auto 0.4 % (0.2-1.2); Eosinophils Absolute Auto 0.2 K/mm3 (0-0.3); Eosinophils Percent Auto 2.1 % (0-4.4); Hematocrit 35.4 % (37.0-47.0); Immature Granulocyte Percent A 1.1 % (0-0.5); Lymphocytes Absolute Auto 1.91 K/mm3 (0.9-3.2); Lymphocytes Percent Auto 21.2 % (18.3-44.2); Mean Corpuscular HGB Conc 33.9 g/dl (32-36); Mean Corpuscular Hemoglobin 30.8 pg (26-34); Mean Platelet Volume 10.2 fl (7.4-10.4); Monocytes Percent Auto 10.8 % (2.6-8.5); Neutrophils Absolute Auto 5.8 K/mm3 (1.3-6.7); Neutrophils Percent Auto 64.4 % (45.5-73.1); Platelet Count Result 244 k/mm3 (150-375); Red Blood Count 3.89 M/mm3 (4.2-5.4); Red Cell Distribution Width 15.7 % (11.5-14.5)
[2024-10-03 07:47] LABS: Anion Gap 9 mmol/L (4-12); Blood Urea Nitrogen 11 mg/dL (7-17); Calcium 8.9 mg/dL (8.4-10.2); Carbon Dioxide 22 mmol/L (22-30); Chloride 94 mmol/L (98-107); Estimated CRCL calculation 107 ml/min; Estimated Glomerular Filt Rate > 60; Glucose 109 mg/dL (65-110); Magnesium 1.6 mg/dL (1.6-2.3); Phosphorus 3.8 mg/dL (2.5-4.5); Potassium 4.3 mmol/L (3.4-5.0); Sodium 125 mmol/L (137-145)
[2024-10-03] MEDS: VITAMIN E 400 UNIT CAPSULE 800 UNIT PO (09:47)
[2024-10-03] MEDS: PREGABALIN (*CRX) 75 MG CAPSULE 150 MG PO ×2 (09:47→20:48)
[2024-10-03] MEDS: ISOSORBIDE MONONITRATE 30 MG TAB.ER.24H PO (09:47)
[2024-10-03] MEDS: PANTOPRAZOLE 40 MG TABLET PO (09:48)
[2024-10-03] MEDS: PRIMIDONE 50 MG TABLET 100 MG PO ×3 (09:48→16:39)
[2024-10-03] MEDS: CHOLECALCIFEROL 5,000 UNITS TABLET 5000 UNITS PO (09:48)
[2024-10-03] MEDS: amLODIPine BESYLATE 10 MG TABLET PO (09:48)
[2024-10-03] MEDS: POTASSIUM CHLORIDE 10 MEQ ER TABLET PO (09:48)
[2024-10-03] MEDS: BACLOFEN 5 MG TABLET PO ×2 (09:48→16:38)
[2024-10-03] MEDS: METOPROLOL TARTRATE 50 MG TAB 100 MG PO ×2 (09:48→20:48)
[2024-10-03] MEDS: guaiFENesin 12 HR 600 MG TABCR 1200 MG PO ×2 (09:49→16:39)
[2024-10-03] MEDS: VITAMIN B COMPLEX CAPSULE 1 CAP PO (09:49)
[2024-10-03] MEDS: LOSARTAN POTASSIUM 100 MG TABLET PO (09:49)
[2024-10-03] MEDS: MEMANTINE 5 MG TABLET PO ×2 (09:49→20:48)
--- NOTE | 2024-10-03 10:55 | P.PNIM_ITS ---
Progress Note: A&P Assessment and Plan (1) Altered mental status: Code(s): R41.82 - Altered mental status, unspecified Status: Acute (2) Sepsis: Qualifiers: Sepsis acute organ dysfunction status: unspecified Sepsis type: methicillin resistant Staphylococcus aureus Qualified Code(s): A41.02 - Sepsis due to Methicillin resistant Staphylococcus aureus Code(s): A41.9 - Sepsis, unspecified organism Status: Acute Plan AMS (altered mental status): Code(s): R41.82 - Altered mental status, unspecified Status: Acute Assessment and Plan: Patient presents with altered mental status. She has a normal baseline AOx3 with slow speech. 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 Patient presented with fevers on 09/15. LP performed 09/19 showing no RBCs and 1 WBCs with mostly lymphocytes. Gram stain showing rare WBC and no organisms. Glucose 97 and protein 51. Viral and bacterial meningitis unlikely but she was on abx prior to LP being performed so could be partially treated meningitis. Consider AMS related to polypharmacy. Consider catatonia. Symptoms seem to wax and wane - delirium? CSF HSV PCR negative. Acyclovir stopped. CSF bacterial cultures were NOT sent to [facility] (fungal cx sent); unable to determine if partially treated meningitis but felt less likely. Stop IV abx and monitor Primidone and Baclofen were cuts back. 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 Patient has dysphagia likely resulting from previous multiple stroke I had a long and thought discussions with patient's family: patient's and daughter about prognosis and goals of care, Patient daughter down man request to start feeding tube for G-tube consult GI for tube feeding placement, plans bed tube on Wednesday. Will place NG tube for feeding today 09/30 Patient feels better today, appetite is improving, mental status improving, patient declines NG tube feeding. Waiting patient family to make decision about tube feeding 10/01 Started PT/OT/ST. ST recommended dropping her from Level 5 to Level 4 Pureed diet which was done. Discussed with neurology. He recommended continuing to wean primidone every 7 days. Scheduled IV Ativan for possible catatonia. Did have some improvement yesterday but worse today. ABG ordered but this was okay. back off on Ativan. Stop IV abx. 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 p.o. per neurologist recommendation Discontinue furosemide 20 mg b.i.d. p.o. Gentle IV fluid with normal saline 75 mL/hour Patient cannot tolerate diet well, Sodium is going up slowly 131 today Sepsis: Qualifiers: Sepsis acute organ dysfunction status: unspecified Sepsis type: sepsis due to unspecified organism Qualified Code(s): A41.9 - Sepsis, unspecified organism Code(s): A41.9 - Sepsis, unspecified organism Status: Acute Assessment and Plan: Noted on admission with fevers, AMS and elevated white count. UTI has been ruled out. Blood cultures negative. Chest x-ray was clear on admission and repeat CXR clear on 09/18. Requiring O2 now. Repeat CXR 09/24 showing congestive changes so Lasix IV once given with good UOP No CSF cultures sent to [facility]. Stop abx and monitor. White blood cell within normal limit, patient is afebrile, Atrial fibrillation with RVR: Code(s): I48.91 - Unspecified atrial fibrillation Status: Acute Assessment and Plan: Review of chart showing she has AFib and was on Xarelto on prior admissions. In the paper chart, the papers from the long-term sheets only had 5 of 6 sheets. Suspect the 6th sheet listed additional medications (including Xarelto). RN will call long-term to get a complete list of patient's medications. Restarted Xarelto Hypertension: Code(s): I10 - Essential (primary) hypertension Status: Acute Assessment and Plan: Patient's blood pressure was reviewed on 09/26 Blood pressure with wide fluctuations. Hydralazine held. continue to monitor for now Acute and chronic respiratory failure: Qualifiers: Respiratory failure complication: hypoxia Qualified Code(s): J96.21 - Acute and chronic respiratory failure with hypoxia Code(s): J96.20 - Acute and chronic respiratory failure, unspecified whether with hypoxia or hypercapnia Status: Acute Assessment and Plan: ABG in ER - pH of 7.46, pCO2 33.0, PO2 67.4, bicarb 23.0, O2 94.6%. Patient presumably wears oxygen at the facility but has been weaned to room air here Continue CPAP at night and with naps as she allows. Obstructive sleep apnea: Code(s): G47.33 - Obstructive sleep apnea (adult) (pediatric) Status: Acute Assessment and Plan: Continue CPAP at night and with naps as she allows. UTI (urinary tract infection): Qualifiers: Hematuria presence: without hematuria Urinary tract infection type: acute cystitis Qualified Code(s): N30.00 - Acute cystitis without hematuria Code(s): N39.0 - Urinary tract infection, site not specified Status: Resolved Assessment and Plan: UA is consistent with UTI. UCx collected. 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 Abx started. BCx and UCx negative. UTI ruled out. She is having urine retention and unable to tolerate the Delarosa removed 09/25/24. Plan for discharge with Delarosa (8) Tachycardia: Code(s): R00.0 - Tachycardia, unspecified Status: Resolved Assessment and Plan: Probably related to above. Heart rate better controlled. No alarms by tele so tele stopped. I discussed case with Dr. Moran on the phone, he also considers the patient has severe dementia. Patient prognosis is poor, I have tried to reach to p tamiko's family and left message to patient's Obed. we needed discussed with patient family above patient goal of care If patient condition continues to improve tomorrow, patient will be discharged to long-term Subjective Date/time seen: 10/03/24 10:55 Interval history: she has been more alert and participating in conversations, also eating patient refused PEG Exam Narrative: GENERAL: Lethargic, ill-appearing in no acute distress. Well-nourished. - EYES: EOMI. Anicteric. - HENT: Dry mucous membranes. - LUNGS: Clear to auscultation bilateral ly, no wheezing, rhonchi, or rales. - CARDIOVASCULAR: Regular rate and rhyth m. No murmur. No JVD. - ABDOMEN: Soft, non-tender and non-dist ended. No palpable masses. - EXTREMITIES: No edema. Peripheral puls es 2+. Non-tender. - NEUROLOGIC: No focal neurological defi cits. CN II-XII grossly intact. General weakness - PSYCHIATRIC: Alert and oriented x to place and person. Flat mood and affect. - SKIN: No rashes or lesions. Warm. - LYMPH: No cervical lymphadenopathy. Objective Data Vital Signs Vital Signs: Vital Signs - 24 hr 10/02/24 12:09 10/02/24 14:00 10/02/24 20:00 Temperature 97.2 F L 98.0 F Pulse Rate 81 81 Respiratory Rate 14 18 Blood Pressure 170/66 H 168/69 H Pulse Oximetry 94 95 Oxygen Delivery Room Air Fraction of Inspired Oxygen 10/02/24 20:05 10/02/24 22:00 10/02/24 22:39 Temperature 98.3 F Pulse Rate 94 94 Respiratory Rate 18 Blood Pressure 178/71 H Pulse Oximetry 96 95 Oxygen Delivery Room Air Fraction of Inspired Oxygen 21 10/03/24 06:00 10/03/24 09:42 10/03/24 09:48 Temperature 97.6 F 97.4 F L Pulse Rate 91 100 100 Respiratory Rate 18 16 Blood Pressure 179/73 H 145/63 H Pulse Oximetry 98 98 Oxygen Delivery Fraction of Inspired Oxygen 10/03/24 09:48 Temperature Pulse Rate Respiratory Rate Blood Pressure Pulse Oximetry 98 Oxygen Delivery Room Air Fraction of Inspired Oxygen Intake/Output Intake/Output: Intake & Output 09/30/24 10/02/24 10/02/24 10/03/24 23:59 00:59 23:59 23:59 Intake Total 4527.5 4150 636 500 Output Total 4750 5360 3250 1620 Balance -222.5 -1210 -2614 -1120 Meds/Results Medications: Active Medications Generic Name Dose Route Start Last Admin Trade Name Freq PRN Reason Stop Dose Admin Acetaminophen 650 mg 09/19/24 09:14 Acetaminophen 650 Mg Suppository RECTAL Q6H PRN Mild Pain (1-3) or Fever Acetaminophen 650 mg 09/19/24 10:07 09/30/24 09:26 Acetaminophen 325 Mg Tablet PO 650 mg Q6H PRN Administration Mild Pain (1-3) or Fever Amlodipine Besylate 10 mg 09/16/24 09:00 10/03/24 09:48 Amlodipine Besylate 10 Mg Tablet PO 10 mg DAILY KELIN Administration Artificial Tears 1 drop 09/15/24 23:37 Artificial Tears Ophth Soln 15 Ml Bottle EACH EYE QID PRN Dry Eye(S) Atorvastatin Calcium 10 mg 09/16/24 00:25 10/02/24 20:05 Atorvastatin 10 Mg Tablet PO 10 mg HS KELIN Administration Baclofen 5 mg 09/26/24 17:00 10/03/24 09:48 Baclofen 5 Mg Tablet PO 5 mg BID KELIN Administration Dextrose 12.5 gm 09/15/24 12:45 Dextrose 50% 25 Gm/50 Ml Syringe IV PUSH PRN PRN Hypoglycemia Protocol Diclofenac Sodium 1 applic 09/15/24 23:37 Diclofenac Sodium 1% 100 Gm Gel (*Bkc) TOPICAL BID PRN moderate pain (scale score 5-6) Fluticasone Propionate 2 spray 09/22/24 16:37 Fluticasone Propionate 0.05% Na Spr 16 Gm Btl (*Bkc) NASAL DAILY PRN Nasal Congestion Glucagon 1 mg 09/15/24 12:45 Glucagon For Inj 1 Mg Vial IM PRN PRN Hypoglycemia Protocol Glucose 15 gm 09/15/24 12:45 Glucose Oral Gel 15 Gm Of Glucse In 37.5 Gm Tube PO PRN PRN Hypoglycemia Protocol Guaifenesin 1,200 mg 09/16/24 09:00 10/03/24 09:49 Guaifenesin 12 Hr 600 Mg Tabcr PO 1,200 mg BID KELIN Administration Hydralazine HCl 10 mg 10/02/24 08:51 10/02/24 20:02 Hydralazine Hcl 20 Mg/Ml Vial IV PUSH 10 mg Q4H PRN Administration Blood Pressure - High Dextrose 1,000 mls @ 100 mls/hr 09/15/24 12:45 Dextrose 5% 1,000 Ml IVPB PRN PRN Hypoglycemia Protocol Isosorbide Mononitrate 30 mg 09/16/24 09:00 10/03/24 09:47 Isosorbide Mononitrate 30 Mg Tab.Er.24h PO 30 mg DAILY KELIN Administration Levalbuterol HCl 1.25 mg 09/22/24 08:41 Levalbuterol Neb 1.25 Mg/3 Ml INHALATION Q6HRT PRN Shortness Of Breath Lidocaine 2 patch 09/16/24 09:00 10/03/24 09:49 Lidocaine 5% Patch TOPICAL Not Given DAILY [facility] Lorazepam 0.5 mg 10/02/24 12:05 Lorazepam (*Crx) 0.5 Mg Tablet PO Q8H PRN Anxiety Losartan Potassium 100 mg 09/16/24 09:00 10/03/24 09:49 Losartan Potassium 100 Mg Tablet PO 100 mg DAILY KELIN Administration Memantine 5 mg 09/16/24 00:25 10/03/24 09:49 Memantine 5 Mg Tablet PO 5 mg Q12HR KELIN Administration Metoprolol Tartrate 100 mg 09/16/24 00:25 10/03/24 09:48 Metoprolol Tartrate 50 Mg Tab PO 100 mg Q12HR [facility] Administration Ondansetron HCl 4 mg 09/15/24 12:45 Ondansetron Inj 4 Mg/2 Ml Vial IV PUSH Q4H PRN Nausea Pantoprazole Sodium 40 mg 09/16/24 09:00 10/03/24 09:48 Pantoprazole 40 Mg Tablet PO 40 mg DAILY [facility] Administration Polyethylene Glycol 17 gm 09/15/24 23:37 Polyethylene Glycol 3350 17 Gm Powd.Pack PO DAILY PRN Constipation Potassium Chloride 10 meq 09/16/24 09:00 10/03/24 09:48 Potassium Chloride 10 Meq Er Tablet PO 10 meq DAILY [facility] Administration Pregabalin 150 mg 09/16/24 00:25 10/03/24 09:47 Pregabalin (*Crx) 75 Mg Capsule PO 150 mg Q12HR [facility] Administration Primidone 100 mg 09/22/24 09:00 10/03/24 09:48 Primidone 50 Mg Tablet PO 100 mg TID [facility] Administration Rivaroxaban 20 mg 09/23/24 17:00 09/28/24 17:16 Rivaroxaban 20 Mg Tablet PO 20 mg DAILY@1700 [facility] Administration Sodium Chloride 2 spray 09/15/24 23:37 Saline 0.65% Gordo Soln 44 Ml Btl NASAL PRN PRN Congestion Vitamin B Complex 1 cap 09/16/24 09:00 10/03/24 09:49 Vitamin B Complex Capsule PO 1 cap QAM [facility] Administration Vitamin D 5,000 units 09/16/24 09:00 10/03/24 09:48 Cholecalciferol 5,000 Units Tablet PO 5,000 units DAILY [facility] Administration Vitamin E 800 unit 09/16/24 09:00 10/03/24 09:47 Vitamin E 400 Unit Capsule PO 800 unit DAILY KELIN Administration Radiology Results: ITS Impressions Head CT 09/15/24 11:48 IMPRESSION: 1. 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 No acute intracranial process. 2. Age-related changes including moderate diffuse on loss and mild scattered white matter hypoattenuation consistent with chronic small vessel ischemic disease. Brain MRI 09/18/24 08:50 IMPRESSION: 1. Age-related changes in the brain. No acute intracranial process. 2. 1.3 x 1.2 x 0.9 cm T2 hyperintense intrasellar mass versus cystic lesion. 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 There is been no evident change in appearance of the pituitary on multiple prior CT studies dating back to 17 which would argue against malignancy/metastases. Would recommend obtaining pre and postcontrast pituitary protocol MRI to distinguish solid versus cystic which would aid in narrowing the differential. Sella Turcica MRI 09/19/24 12:56 IMPRESSION: 1. 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 2. 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 Lumbar Puncture Fluoroscopy 09/19/24 14:00 IMPRESSION: 1. Successful fluoro-guided lumbar puncture. Chest X-Ray 09/24/24 07:39 Impression: Central pulmonary venous congestive change. Labs Labs: Laboratory Results - last 24 hr 10/03/24 07:13 WBC 9.0 RBC 3.89 L Hgb 12.0 Hct 35.4 L MCV 91.0 D MCH 30.8 MCHC 33.9 RDW 15.7 H Plt Count 244 MPV 10.2 Immature Gran % (Auto) 1.1 H Neut % (Auto) 64.4 Lymph % (Auto) 21.2 [place] % (Auto) 10.8 H Eos % (Auto) 2.1 Baso % (Auto) 0.4 Lymph # (Auto) 1.91 [place] # (Auto) 1.0 H Eos # (Auto) 0.2 Baso # (Auto) 0.0 Abs Immat Gran (auto) 0.10 H Absolute Neuts (auto) 5.8 Absolute Nucleated RBC 0.000 Nucleated RBC % 0.0 Sodium 125 L Potassium 4.3 Chloride 94 L Carbon Dioxide 22 Anion Gap 9 BUN 11 Creatinine 0.41 L Estim Creat Clear Calc 107 Estimated GFR > 60 Glucose 109 Calcium 8.9 Phosphorus 3.8 Magnesium 1.6
--- NOTE | 2024-10-03 11:06 | PCNFU ---
Nutrition Follow-Up Complete: Severe protein calorie malnutrition related to acute loss of appetite, as evidenced by intakes <50% needs >5 days; weight loss -7%/2 weeks. goal: Improve PO intake to at least 50% meals and supplements Patient is progressing towards goal. We will continue current goal. Pt current nutrition is Minced and Moist, Level 5/Heart Healthy. Last recorded weight is 86.5 kg, no new weight to report. Bowel Motility: +Bm reported 10/02 Labs Reviewed: Cr 0.41, Na 125, Hct 35.4 Meds Noted:Vit D, Lasix, B complex, Vit E, Protonix. Skin: WNL Additional Notes: Patient has decided to not get PEG tube. Oral Intake improving. She does tolerate Nutritional Ice Cream (300 kcal and 9 gm protein) as well as Ensure supplements (350 kcal and 20 gm protein). Po intake continues to be encouraged. Agree with diet orders. Monitoring intakes, weights, labs, output, meds, supplement tolerance, plan of care Follow up in 5 days
[2024-10-03] MEDS: SODIUM CHLORIDE 500 MG TABLET 1000 MG PO ×2 (12:20→16:39)
[2024-10-03] MEDS: oxyCODONE/ACETAMINOPHEN (*CRX) 5-325 MG TABLET 1 TABLET PO ×2 (16:36→22:02)
[2024-10-03] MEDS: hydrALAZINE HCL 20 MG/ML VIAL 10 MG IV PUSH (20:45)
[2024-10-03] MEDS: ATORVASTATIN 10 MG TABLET PO (20:48)
[2024-10-03] MEDS: LORazepam (*CRX) 0.5 MG TABLET PO (23:36)
[2024-10-04] MEDS: oxyCODONE/ACETAMINOPHEN (*CRX) 5-325 MG TABLET 1 TABLET PO ×3 (02:16→17:19)
[2024-10-04 06:00] VITALS: BP 183/73; PULSE 84; RESP 16; TEMP 36.6; O2SAT 97
[2024-10-04] MEDS: hydrALAZINE HCL 20 MG/ML VIAL 10 MG IV PUSH ×2 (06:21→21:42)
--- NOTE | 2024-10-04 07:50 | PM.IMPN ---
Progress Note: A&P Assessment and Plan (1) Altered mental status: Code(s): R41.82 - Altered mental status, unspecified Status: Acute (2) Sepsis: Qualifiers: Sepsis acute organ dysfunction status: unspecified Sepsis type: methicillin resistant Staphylococcus aureus Qualified Code(s): A41.02 - Sepsis due to Methicillin resistant Staphylococcus aureus Code(s): A41.9 - Sepsis, unspecified organism Status: Acute Plan AMS (altered mental status): Code(s): R41.82 - Altered mental status, unspecified Status: Acute Assessment and Plan: Patient presents with altered mental status. She has a normal baseline AOx3 with slow speech. 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 Patient presented with fevers on 09/15. LP performed 09/19 showing no RBCs and 1 WBCs with mostly lymphocytes. Gram stain showing rare WBC and no organisms. Glucose 97 and protein 51. Viral and bacterial meningitis unlikely but she was on abx prior to LP being performed so could be partially treated meningitis. Consider AMS related to polypharmacy. Consider catatonia. Symptoms seem to wax and wane - delirium? CSF HSV PCR negative. Acyclovir stopped. CSF bacterial cultures were NOT sent to [facility] (fungal cx sent); unable to determine if partially treated meningitis but felt less likely. Stop IV abx and monitor Primidone and Baclofen were cuts back. 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 Patient has dysphagia likely resulting from previous multiple stroke I had a long and thought discussions with patient's family: patient's and daughter about prognosis and goals of care, Patient daughter down man request to start feeding tube for G-tube consult GI for tube feeding placement, plans bed tube on Wednesday. Will place NG tube for feeding today 09/30 Patient feels better today, appetite is improving, mental status improving, patient declines NG tube feeding. Waiting patient family to make decision about tube feeding 10/01 Dysphagia Patient does not have appetite and also had trouble with swallowing Patient ate a little today, patient cannot have enough oral intake to support life Likely secondary to dementia,, possible ischemic dementia, MRI showed multiple strokes before and also brain malacia Patient does not want NG tube feeding Started PT/OT/ST. ST recommended dropping her from Level 5 to Level 4 Pureed diet which was done. Discussed with neurology. He recommended continuing to wean primidone every 7 days. Scheduled IV Ativan for possible catatonia. Did have some improvement yesterday but worse today. ABG ordered but this was okay. back off on Ativan. Stop IV abx. 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 p.o. per neurologist recommendation Discontinue furosemide 20 mg b.i.d. p.o. Gentle IV fluid with normal saline 75 mL/hour Patient cannot tolerate diet well, Sodium is going up slowly 131 today Sepsis: Qualifiers: Sepsis acute organ dysfunction status: unspecified Sepsis type: sepsis due to unspecified organism Qualified Code(s): A41.9 - Sepsis, unspecified organism Code(s): A41.9 - Sepsis, unspecified organism Status: Acute Assessment and Plan: Noted on admission with fevers, AMS and elevated white count. UTI has been ruled out. Blood cultures negative. Chest x-ray was clear on admission and repeat CXR clear on 09/18. Requiring O2 now. Repeat CXR 09/24 showing congestive changes so Lasix IV once given with good UOP No CSF cultures sent to [facility], [place]. Stop abx and monitor. White blood cell within normal limit, patient is afebrile, Atrial fibrillation with RVR: Code(s): I48.91 - Unspecified atrial fibrillation Status: Acute Assessment and Plan: Review of chart showing she has AFib and was on Xarelto on prior admissions. In the paper chart, the papers from the intermediate sheets only had 5 of 6 sheets. Suspect the 6th sheet listed additional medications (including Xarelto). RN will call intermediate to get a complete list of patient's medications. Restarted Xarelto Hypertension: Code(s): I10 - Essential (primary) hypertension Status: Acute Assessment and Plan: Patient's blood pressure was reviewed on 09/26 Blood pressure with wide fluctuations. Hydralazine held. continue to monitor for now Acute and chronic respiratory failure: Qualifiers: Respiratory failure complication: hypoxia Qualified Code(s): J96.21 - Acute and chronic respiratory failure with hypoxia Code(s): J96.20 - Acute and chronic respiratory failure, unspecified whether with hypoxia or hypercapnia Status: Acute Assessment and Plan: ABG in ER - pH of 7.46, pCO2 33.0, PO2 67.4, bicarb 23.0, O2 94.6%. Patient presumably wears oxygen at the facility but has been weaned to room air here Continue CPAP at night and with naps as she allows. Obstructive sleep apnea: Code(s): G47.33 - Obstructive sleep apnea (adult) (pediatric) Status: Acute Assessment and Plan: Continue CPAP at night and with naps as she allows. UTI (urinary tract infection): Qualifiers: Hematuria presence: without hematuria Urinary tract infection type: acute cystitis Qualified Code(s): N30.00 - Acute cystitis without hematuria Code(s): N39.0 - Urinary tract infection, site not specified Status: Resolved Assessment and Plan: UA is consistent with UTI. UCx collected. 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 Abx started. BCx and UCx negative. UTI ruled out. She is having urine retention and unable to tolerate the Delarosa removed 09/25/24. Plan for discharge with Delarosa (8) Tachycardia: Code(s): R00.0 - Tachycardia, unspecified Status: Resolved Assessment and Plan: Probably related to above. Heart rate better controlled. No alarms by tele so tele stopped. I discussed case with Dr. Moran on the phone, he also considers the patient has severe dementia. Patient prognosis is poor, I have tried to reach to patient's family and left message to patient's Obed. we needed discussed with patient family above patient goal of care Patient condition deteriorates, patient could not have enough oral intake to support life the estimated recent delayed discharge from hospital We have several discussion with patient's family and patient about tube feeding to support life, patient does not want to feeding, but patient family requests to provide tube feeding to support the left. Will have meeting with the patient's family to discuss about the goal of care Subjective Date/time seen: 10/04/24 07:50 Interval history: I saw examined the patient today, patient is somnolent, arousable, patient cannot engage in conversation today. Could not have enough oral intake today. Mental status worse Exam Narrative: GENERAL: Lethargic, ill-appearing in no acute distress. Well-nourished. - EYES: EOMI. Anicteric. - HENT: Dry mucous membranes. - LUNGS: Clear to auscultation bilaterally, no wheezing, rhonchi, or rales. - CARDIOVASCULAR: Regular rate and rhythm. No murmur. No JVD. - ABDOMEN: Soft, non-tender and non-distended. No palpable masses. - EXTREMITIES: No edema. Peripheral pulses 2+. Non-tender. - NEUROLOGIC: No focal neurological deficits. CN II-XII grossly intact. General weakness - PSYCHIATRIC: Alert and not oriented x to place and person. - SKIN: No rashes or lesions. Warm. - LYMPH: No cervical lymphadenopathy. Objective Data Vital Signs Vital Signs: Vital Signs - 24 hr 10/03/24 09:42 10/03/24 09:48 10/03/24 09:48 Temperature 97.4 F L Pulse Rate 100 100 Respiratory Rate 16 Blood Pressure 145/63 H Pulse Oximetry 98 98 Oxygen Delivery Room Air 10/03/24 14:00 10/03/24 20:00 10/03/24 20:41 Temperature 97.6 F Pulse Rate 87 78 Respiratory Rate 18 16 Blood Pressure 143/65 H 173/71 H Pulse Oximetry 96 99 99 Oxygen Delivery Room Air 10/03/24 20:48 10/03/24 23:21 10/04/24 06:00 Temperature 98 F Pulse Rate 78 84 Respiratory Rate 16 Blood Pressure 185/90 H 183/73 H Pulse Oximetry 97 Oxygen Delivery Intake/Output Intake/Output: Intake & Output 10/02/24 10/02/24 10/03/24 10/04/24 00:59 23:59 23:59 23:59 Intake Total 4150 636 2060 400 Output Total 5360 3250 2070 1600 [facility] -1210 -2614 -10 -1200 Meds/Results Medications: Active Medications Generic Name Dose Route Start Last Admin Trade Name Freq PRN Reason Stop Dose Admin Acetaminophen 650 mg 09/19/24 09:14 Acetaminophen 650 Mg Suppository RECTAL Q6H PRN Mild Pain (1-3) or Fever Acetaminophen 650 mg 09/19/24 10:07 09/30/24 09:26 Acetaminophen 325 Mg Tablet PO 650 mg Q6H PRN Administration Mild Pain (1-3) or Fever Amlodipine Besylate 10 mg 09/16/24 09:00 10/03/24 09:48 Amlodipine Besylate 10 Mg Tablet PO 10 mg DAILY KELIN Administration Artificial Tears 1 drop 09/15/24 23:37 Artificial Tears Ophth Soln 15 Ml Bottle EACH EYE QID PRN Dry Eye(S) Atorvastatin Calcium 10 mg 09/16/24 00:25 10/03/24 20:48 Atorvastatin 10 Mg Tablet PO 10 mg HS KELIN Administration Baclofen 5 mg 09/26/24 17:00 10/03/24 16:38 Baclofen 5 Mg Tablet PO 5 mg BID KELIN Administration Dextrose 12.5 gm 09/15/24 12:45 Dextrose 50% 25 Gm/50 Ml Syringe IV PUSH PRN PRN Hypoglycemia Protocol Diclofenac Sodium 1 applic 09/15/24 23:37 Diclofenac Sodium 1% 100 Gm Gel (*Bkc) TOPICAL BID PRN moderate pain (scale score 5-6) Fluticasone Propionate 2 spray 09/22/24 16:37 Fluticasone Propionate 0.05% Na Spr 16 Gm Btl (*Bkc) NASAL DAILY PRN Nasal Congestion Glucagon 1 mg 09/15/24 12:45 Glucagon For Inj 1 Mg Vial IM PRN PRN Hypoglycemia Protocol Glucose 15 gm 09/15/24 12:45 Glucose Oral Gel 15 Gm Of Glucse In 37.5 Gm Tube PO PRN PRN Hypoglycemia Protocol Guaifenesin 1,200 mg 09/16/24 09:00 10/03/24 16:39 Guaifenesin 12 Hr 600 Mg Tabcr PO 1,200 mg BID KELIN Administration Hydralazine HCl 10 mg 10/02/24 08:51 10/04/24 06:21 Hydralazine Hcl 20 Mg/Ml Vial IV PUSH 10 mg Q4H PRN Administration Blood Pressure - High Dextrose 1,000 mls @ 100 mls/hr 09/15/24 12:45 Dextrose 5% 1,000 Ml IVPB PRN PRN Hypoglycemia Protocol Isosorbide Mononitrate 30 mg 09/16/24 09:00 10/03/24 09:47 Isosorbide Mononitrate 30 Mg Tab.Er.24h PO 30 mg DAILY KELIN Administration Levalbuterol HCl 1.25 mg 09/22/24 08:41 Levalbuterol Neb 1.25 Mg/3 Ml INHALATION Q6HRT PRN Shortness Of Breath Lidocaine 2 patch 09/16/24 09:00 10/03/24 09:49 Lidocaine 5% Patch TOPICAL Not Given DAILY KELIN Lorazepam 0.5 mg 10/02/24 12:05 10/03/24 23:36 Lorazepam (*Crx) 0.5 Mg Tablet PO 0.5 mg Q8H PRN Administration Anxiety Losartan Potassium 100 mg 09/16/24 09:00 10/03/24 09:49 Losartan Potassium 100 Mg Tablet PO 100 mg DAILY KELIN Administration Memantine 5 mg 09/16/24 00:25 10/03/24 20:48 Memantine 5 Mg Tablet PO 5 mg Q12HR KELIN Administration Metoprolol Tartrate 100 mg 09/16/24 00:25 10/03/24 20:48 Metoprolol Tartrate 50 Mg Tab PO 100 mg Q12HR KELIN Administration Miscellaneous Information 1 each 10/04/24 00:01 Pregabalin Needs To Be Renewed Or It Will Automatically Discontinue. XX 11/03/24 00:00 CLARIFY KELIN Ondansetron HCl 4 mg 09/15/24 12:45 Ondansetron Inj 4 Mg/2 Ml Vial IV PUSH Q4H PRN Nausea Oxycodone/Acetaminophen 1 tablet 10/03/24 15:56 10/04/24 02:16 Oxycodone/Acetaminophen (*Crx) 5-325 Mg Tablet PO 1 tablet Q4H PRN Administration Pain Rated 7-10 Pantoprazole Sodium 40 mg 09/16/24 09:00 10/03/24 09:48 Pantoprazole 40 Mg Tablet PO 40 mg DAILY KELIN Administration Polyethylene Glycol 17 gm 09/15/24 23:37 Polyethylene Glycol 3350 17 Gm Powd.Pack PO DAILY PRN Constipation Potassium Chloride 10 meq 09/16/24 09:00 10/03/24 09:48 Potassium Chloride 10 Meq Er Tablet PO 10 meq DAILY KELIN Administration Pregabalin 150 mg 09/16/24 00:25 10/03/24 20:48 Pregabalin (*Crx) 75 Mg Capsule PO 150 mg Q12HR KELIN Administration Primidone 100 mg 09/22/24 09:00 10/03/24 16:39 Primidone 50 Mg Tablet PO 100 mg TID KELIN Administration Rivaroxaban 20 mg 09/23/24 17:00 09/28/24 17:16 Rivaroxaban 20 Mg Tablet PO 20 mg DAILY@1700 KELIN Administration Sodium Chloride 2 spray 09/15/24 23:37 Saline 0.65% Gordo Soln 44 Ml Btl NASAL PRN PRN Congestion Sodium Chloride 1,000 mg 10/03/24 11:00 10/03/24 16:39 Sodium Chloride 500 Mg Tablet PO 1,000 mg TID KELIN Administration Vitamin B Complex 1 cap 09/16/24 09:00 10/03/24 09:49 Vitamin B Complex Capsule PO 1 cap QAM KELIN Administration Vitamin D 5,000 units 09/16/24 09:00 10/03/24 09:48 Cholecalciferol 5,000 Units Tablet PO 5,000 units DAILY KELIN Administration Vitamin E 800 unit 09/16/24 09:00 10/03/24 09:47 Vitamin E 400 Unit Capsule PO 800 unit DAILY KELIN Administration Radiology Results: ITS Impressions Head CT 09/15/24 11:48 IMPRESSION: 1. 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 No acute intracranial process. 2. Age-related changes including moderate diffuse on loss and mild scattered white matter hypoattenuation consistent with chronic small vessel ischemic disease. Brain MRI 09/18/24 08:50 IMPRESSION: 1. Age-related changes in the brain. No acute intracranial process. 2. 1.3 x 1.2 x 0.9 cm T2 hyperintense intrasellar mass versus cystic lesion. 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 There is been no evident change in appearance of the pituitary on multiple prior CT studies dating back to thousand 17 which would argue against malignancy/metastases. Would recommend obtaining pre and postcontrast pituitary protocol MRI to distinguish solid versus cystic which would aid in narrowing the differential. Sella Turcica MRI 09/19/24 12:56 IMPRESSION: 1. 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 2. 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 Lumbar Puncture Fluoroscopy 09/19/24 14:00 IMPRESSION: 1. Successful fluoro-guided lumbar puncture. Chest X-Ray 09/24/24 07:39 Impression: Central pulmonary venous congestive change.
[2024-10-04 08:05] LABS: Basophils Percent Auto 0.3 % (0.2-1.2); Eosinophils Absolute Auto 0.3 K/mm3 (0-0.3); Eosinophils Percent Auto 3.1 % (0-4.4); Hematocrit 36.2 % (37.0-47.0); Hemoglobin 12.5 g/dL (12.0-15.0); Immature Granulocyte Absolute 0.09 K/mm3 (0.00-0.031); Lymphocytes Absolute Auto 2.29 K/mm3 (0.9-3.2); Lymphocytes Percent Auto 25.6 % (18.3-44.2); Mean Corpuscular HGB Conc 34.5 g/dl (32-36); Mean Corpuscular Hemoglobin 30.7 pg (26-34); Mean Corpuscular Volume 88.9 fl (80-100); Mean Platelet Volume 9.9 fl (7.4-10.4); Monocytes Percent Auto 10.9 % (2.6-8.5); Neutrophils Absolute Auto 5.3 K/mm3 (1.3-6.7); Neutrophils Percent Auto 59.1 % (45.5-73.1); Platelet Count Result 298 k/mm3 (150-375); Red Blood Count 4.07 M/mm3 (4.2-5.4); Red Cell Distribution Width 15.5 % (11.5-14.5)
[2024-10-04 09:15] VITALS: PULSE 121
[2024-10-04] MEDS: SODIUM CHLORIDE 500 MG TABLET 1000 MG PO ×3 (09:15→17:14)
[2024-10-04] MEDS: POTASSIUM CHLORIDE 10 MEQ ER TABLET PO (09:15)
[2024-10-04] MEDS: PREGABALIN (*CRX) 75 MG CAPSULE 150 MG PO ×2 (09:15→21:45)
[2024-10-04] MEDS: PANTOPRAZOLE 40 MG TABLET PO (09:15)
[2024-10-04] MEDS: VITAMIN E 400 UNIT CAPSULE 800 UNIT PO (09:15)
[2024-10-04] MEDS: METOPROLOL TARTRATE 50 MG TAB 100 MG PO ×2 (09:15→21:45)
[2024-10-04] MEDS: VITAMIN B COMPLEX CAPSULE 1 CAP PO (09:15)
[2024-10-04] MEDS: guaiFENesin 12 HR 600 MG TABCR 1200 MG PO ×2 (09:15→17:14)
[2024-10-04] MEDS: PRIMIDONE 50 MG TABLET 100 MG PO ×3 (09:15→17:14)
[2024-10-04] MEDS: amLODIPine BESYLATE 10 MG TABLET PO (09:16)
[2024-10-04] MEDS: ISOSORBIDE MONONITRATE 30 MG TAB.ER.24H PO (09:16)
[2024-10-04] MEDS: BACLOFEN 5 MG TABLET PO ×2 (09:16→17:14)
[2024-10-04] MEDS: CHOLECALCIFEROL 5,000 UNITS TABLET 5000 UNITS PO (09:16)
[2024-10-04] MEDS: LOSARTAN POTASSIUM 100 MG TABLET PO (09:16)
[2024-10-04] MEDS: MEMANTINE 5 MG TABLET PO ×2 (09:16→21:45)
[2024-10-04 14:00] VITALS: BP 116/51; PULSE 100; RESP 12; TEMP 37.3; O2SAT 95
[2024-10-04 20:00] VITALS: PULSE 70; RESP 16; O2SAT 97
--- NOTE | 2024-10-04 21:15 | PC.NURSE ---
PT DAUGHTER CAME TO VISIT. LEFT POA PAPERWORK WHICH WAS COPIED AND PLACED IN CHART. DAUGHTER STATED SHE WILL BE BACK IN THE MORNING TO TALK WITH DOCTORS.
[2024-10-04 21:30] VITALS: BP 170/67; PULSE 70; RESP 16; TEMP 36.3; O2SAT 97
[2024-10-04 21:45] VITALS: PULSE 70
[2024-10-04] MEDS: LORazepam (*CRX) 0.5 MG TABLET PO (21:45)
[2024-10-04] MEDS: ATORVASTATIN 10 MG TABLET PO (21:45)
[2024-10-05] VITALS (9 sets, daily range): BP systolic 137–164; BP diastolic 58–74; PULSE 61–91; RESP 12–18; TEMP 36.3–36.4; O2SAT 96–97
[2024-10-05 05:22] LABS: Basophils Percent Auto 0.4 % (0.2-1.2); Eosinophils Absolute Auto 0.3 K/mm3 (0-0.3); Eosinophils Percent Auto 3.1 % (0-4.4); Hematocrit 36.6 % (37.0-47.0); Hemoglobin 12.5 g/dL (12.0-15.0); Immature Granulocyte Absolute 0.13 K/mm3 (0.00-0.031); Immature Granulocyte Percent A 1.6 % (0-0.5); Immature Platelet Fraction Pct 4.6 % (0.9-11.2); Lymphocytes Percent Auto 26.1 % (18.3-44.2); Mean Corpuscular HGB Conc 34.2 g/dl (32-36); Mean Corpuscular Hemoglobin 31.2 pg (26-34); Mean Corpuscular Volume 91.3 fl (80-100); Mean Platelet Volume 11.5 fl (7.4-10.4); Monocytes Percent Auto 12.7 % (2.6-8.5); Neutrophils Absolute Auto 4.5 K/mm3 (1.3-6.7); Neutrophils Percent Auto 56.1 % (45.5-73.1); Platelet Count Result 253 k/mm3 (150-375); Red Blood Count 4.01 M/mm3 (4.2-5.4)
[2024-10-05] MEDS: oxyCODONE/ACETAMINOPHEN (*CRX) 5-325 MG TABLET 1 TABLET PO ×3 (07:55→20:22)
[2024-10-05] MEDS: ISOSORBIDE MONONITRATE 30 MG TAB.ER.24H PO (08:01)
[2024-10-05] MEDS: METOPROLOL TARTRATE 50 MG TAB 100 MG PO ×2 (08:01→20:15)
[2024-10-05] MEDS: LOSARTAN POTASSIUM 100 MG TABLET PO (08:02)
[2024-10-05] MEDS: SODIUM CHLORIDE 500 MG TABLET 1000 MG PO ×3 (08:02→16:26)
[2024-10-05] MEDS: MEMANTINE 5 MG TABLET PO ×2 (08:02→20:15)
[2024-10-05] MEDS: PRIMIDONE 50 MG TABLET 100 MG PO ×3 (08:02→16:27)
[2024-10-05] MEDS: POTASSIUM CHLORIDE 10 MEQ ER TABLET PO (08:02)
[2024-10-05] MEDS: BACLOFEN 5 MG TABLET PO ×2 (08:02→16:26)
[2024-10-05] MEDS: VITAMIN E 400 UNIT CAPSULE 800 UNIT PO (08:03)
[2024-10-05] MEDS: guaiFENesin 12 HR 600 MG TABCR 1200 MG PO ×2 (08:03→16:26)
[2024-10-05] MEDS: amLODIPine BESYLATE 10 MG TABLET PO (08:03)
[2024-10-05] MEDS: PANTOPRAZOLE 40 MG TABLET PO (08:03)
[2024-10-05] MEDS: VITAMIN B COMPLEX CAPSULE 1 CAP PO (08:03)
[2024-10-05] MEDS: CHOLECALCIFEROL 5,000 UNITS TABLET 5000 UNITS PO (08:03)
--- NOTE | 2024-10-05 08:17 | PM.IMPN ---
Progress Note: A&P Assessment and Plan (1) Altered mental status: Code(s): R41.82 - Altered mental status, unspecified Status: Acute (2) Sepsis: Qualifiers: Sepsis acute organ dysfunction status: unspecified Sepsis type: methicillin resistant Staphylococcus aureus Qualified Code(s): A41.02 - Sepsis due to Methicillin resistant Staphylococcus aureus Code(s): A41.9 - Sepsis, unspecified organism Status: Acute Plan AMS (altered mental status): Code(s): R41.82 - Altered mental status, unspecified Status: Acute Assessment and Plan: Patient presents with altered mental status. She has a normal baseline AOx3 with slow speech. 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 Patient presented with fevers on 09/15. LP performed 09/19 showing no RBCs and 1 WBCs with mostly lymphocytes. Gram stain showing rare WBC and no organisms. Glucose 97 and protein 51. Viral and bacterial meningitis unlikely but she was on abx prior to LP being performed so could be partially treated meningitis. Consider AMS related to polypharmacy. Consider catatonia. Symptoms seem to wax and wane - delirium? CSF HSV PCR negative. Acyclovir stopped. CSF bacterial cultures were NOT sent to [employer] (fungal cx sent); unable to determine if partially treated meningitis but felt less likely. Stop IV abx and monitor Primidone and Baclofen were cuts back. 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 Patient has dysphagia likely resulting from previous multiple stroke I had a long and thought discussions with patient's family: patient's and daughter about prognosis and goals of care, Patient daughter down man request to start feeding tube for G-tube consult GI for tube feeding placement, plans bed tube on Wednesday. Will place NG tube for feeding today 09/30 Patient feels better today, appetite is improving, mental status improving, patient declines NG tube feeding. Waiting patient family to make decision about tube feeding 10/01 Patient is lethargic, unable to engage conversation or follow commands, patient cannot recall her conversation with the care coordinators. Patient has a multiple chronic infarct on MRI, MRI also showed moderate diffuse cerebral volume loss. Patient may have dementia related age and multiple stroke. Current mental status is possible baseline Dysphagia Patient does not have appetite and also had trouble with swallowing Patient ate a little today, patient cannot have enough oral intake to support life Likely secondary to dementia,, possible ischemic dementia, MRI showed multiple strokes before and also brain malacia Patient does not want NG tube feeding Started PT/OT/ST. ST recommended dropping her from Level 5 to Level 4 Pureed diet which was done. Discussed with neurology. He recommended continuing to wean primidone every 7 days. Scheduled IV Ativan for possible catatonia. Did have some improvement yesterday but worse today. ABG ordered but this was okay. back off on Ativan. Stop IV abx. 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 p.o. per neurologist recommendation Discontinue furosemide 20 mg b.i.d. p.o. Received IV fluid with normal saline 75 mL/hour Patient cannot tolerate diet well, Sepsis: Qualifiers: Sepsis acute organ dysfunction status: unspecified Sepsis type: sepsis due to unspecified organism Qualified Code(s): A41.9 - Sepsis, unspecified organism Code(s): A41.9 - Sepsis, unspecified organism Status: Acute Assessment and Plan: Noted on admission with fevers, AMS and elevated white count. UTI has been ruled out. Blood cultures negative. Chest x-ray was clear on admission and repeat CXR clear on 09/18. Requiring O2 now. Repeat CXR 09/24 showing congestive changes so Lasix IV once given with good UOP No CSF cultures sent to [facility]. Stop abx and monitor. White blood cell within normal limit, patient is afebrile, Atrial fibrillation with RVR: Code(s): I48.91 - Unspecified atrial fibrillation Status: Acute Assessment and Plan: Review of chart showing she has AFib and was on Xarelto on prior admissions. In the paper chart, the papers from the detention sheets only had 5 of 6 sheets. Suspect the 6th sheet listed additional medications (including Xarelto). RN will call detention to get a complete list of patient's medications. Restarted Xarelto Hypertension: Code(s): I10 - Essential (primary) hypertension Status: Acute Assessment and Plan: Patient's blood pressure was reviewed on 09/26 Blood pressure with wide fluctuations. Hydralazine held. continue to monitor for now Acute and chronic respiratory failure: Qualifiers: Respiratory failure complication: hypoxia Qualified Code(s): J96.21 - Acute and chronic respiratory failure with hypoxia Code(s): J96.20 - Acute and chronic respiratory failure, unspecified whether with hypoxia or hypercapnia Status: Acute Assessment and Plan: ABG in ER - pH of 7.46, pCO2 33.0, PO2 67.4, bicarb 23.0, O2 94.6%. Patient presumably wears oxygen at the facility but has been weaned to room air here Continue CPAP at night and with naps as she allows. Obstructive sleep apnea: Code(s): G47.33 - Obstructive sleep apnea (adult) (pediatric) Status: Acute Assessment and Plan: Continue CPAP at night and with naps as she allows. UTI (urinary tract infection): Qualifiers: Hematuria presence: without hematuria Urinary tract infection type: acute cystitis Qualified Code(s): N30.00 - Acute cystitis without hematuria Code(s): N39.0 - Urinary tract infection, site not specified Status: Resolved Assessment and Plan: UA is consistent with UTI. UCx collected. 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 Abx started. BCx and UCx negative. UTI ruled out. She is having urine retention and unable to tolerate the Delarosa removed 09/25/24. Plan for discharge with Delarosa (8) Tachycardia: Code(s): R00.0 - Tachycardia, unspecified Status: Resolved Assessment and Plan: Probably related to above. Heart rate better controlled. No alarms by tele so tele stopped. I discussed case with Dr. Moran on the phone, he also considers the patient has severe dementia. Patient prognosis is poor, I have tried to reach to patient's family and left message to patient's Obed. we needed discussed with patient family above patient goal of care Patient condition deteriorates, patient could not have enough oral intake to support life the estimated recent delayed discharge from hospital We have several discussion with patient's family and patient about tube feeding to support life, patient does not want to feeding, but patient family requests to provide tube feeding to support the left. had meeting with the patient's family in presents of care management specialist to discuss about the goal of care on phone and in patient's room 10/05. we had long discussion about patient condition and prognosis. we are waiting for patient family's decisions to provide care and support for the patient and her family accordingly Subjective Date/time seen: 10/05/24 08:17 Interval history: I saw examined the patient in presents of patient's family and care management specialist today. Patient condition does improve, patient ate little full liquid diet. Patient is lethargic, unable to engage conversation. Patient does not have obvious distress, has no complaints. Patient is afebrile, blood pressure stable, no O2 desaturation on room air. Labs reviewed, white blood cell within normal limit, hyponatremia persists on the baseline. Exam Narrative: GENERAL: Lethargic, ill-appearing in no acute distress. Well-nourished. - EYES: EOMI. Anicteric. - HENT: Dry mucous membranes. - LUNGS: Clear to auscultation bilaterally, no wheezing, rhonchi, or rales. - CARDIOVASCULAR: Regular rate and rhythm. No murmur. No JVD. - ABDOMEN: Soft, non-tender and non-distended. No palpable masses. - EXTREMITIES: 1+ edema lower extremity edema. Peripheral pulses 2+. Non-tender. - NEUROLOGIC: Patient is unable to follow commands, unable to evaluate. General weakness - PSYCHIATRIC: Alert and not oriented x to place and person. - SKIN: No rashes or lesions. Warm. - LYMPH: No cervical lymphadenopathy. Objective Data Vital Signs Vital Signs: Vital Signs - 24 hr 10/04/24 09:15 10/04/24 09:30 10/04/24 14:00 Temperature 99.1 F Pulse Rate 121 H 100 Respiratory Rate 12 Blood Pressure 116/51 L Pulse Oximetry 95 Oxygen Delivery Room Air Fraction of Inspired Oxygen 10/04/24 20:00 10/04/24 21:30 10/04/24 21:45 Temperature 97.3 F L Pulse Rate 70 70 70 Respiratory Rate 16 16 Blood Pressure 170/67 H Pulse Oximetry 97 97 Oxygen Delivery Room Air Fraction of Inspired Oxygen 21 10/05/24 00:17 10/05/24 01:10 10/05/24 04:39 Temperature 97.6 F Pulse Rate 62 61 81 Respiratory Rate 13 12 18 Blood Pressure 164/60 H Pulse Oximetry 96 97 96 Oxygen Delivery Autopap Autopap Fraction of Inspired Oxygen 10/05/24 07:53 10/05/24 07:55 10/05/24 08:01 Temperature 97.4 F L Pulse Rate 91 91 Respiratory Rate 16 Blood Pressure 155/74 H Pulse Oximetry 96 96 Oxygen Delivery Room Air Fraction of Inspired Oxygen Intake/Output Intake/Output: Intake & Output 10/02/24 10/03/24 10/04/24 10/05/24 23:59 23:59 23:59 23:59 Intake Total 636 2060 3600 200 Output Total 3250 2070 2300 1100 [facility] -2614 -10 1300 -900 Meds/Results Medications: Active Medications Generic Name Dose Route Start Last Admin Trade Name Freq PRN Reason Stop Dose Admin Acetaminophen 650 mg 09/19/24 09:14 Acetaminophen 650 Mg Suppository RECTAL Q6H PRN Mild Pain (1-3) or Fever Acetaminophen 650 mg 09/19/24 10:07 09/30/24 09:26 Acetaminophen 325 Mg Tablet PO 650 mg Q6H PRN Administration Mild Pain (1-3) or Fever Amlodipine Besylate 10 mg 09/16/24 09:00 10/05/24 08:03 Amlodipine Besylate 10 Mg Tablet PO 10 mg DAILY KELIN Administration Artificial Tears 1 drop 09/15/24 23:37 Artificial Tears Ophth Soln 15 Ml Bottle EACH EYE QID PRN Dry Eye(S) Atorvastatin Calcium 10 mg 09/16/24 00:25 10/04/24 21:45 Atorvastatin 10 Mg Tablet PO 10 mg HS KELIN Administration Baclofen 5 mg 09/26/24 17:00 10/05/24 08:02 Baclofen 5 Mg Tablet PO 5 mg BID KELIN Administration Dextrose 12.5 gm 09/15/24 12:45 Dextrose 50% 25 Gm/50 Ml Syringe IV PUSH PRN PRN Hypoglycemia Protocol Diclofenac Sodium 1 applic 09/15/24 23:37 Diclofenac Sodium 1% 100 Gm Gel (*Bkc) TOPICAL BID PRN moderate pain (scale score 5-6) Fluticasone Propionate 2 spray 09/22/24 16:37 Fluticasone Propionate 0.05% Na Spr 16 Gm Btl (*Bkc) NASAL DAILY PRN Nasal Congestion Glucagon 1 mg 09/15/24 12:45 Glucagon For Inj 1 Mg Vial IM PRN PRN Hypoglycemia Protocol Glucose 15 gm 09/15/24 12:45 Glucose Oral Gel 15 Gm Of Glucse In 37.5 Gm Tube PO PRN PRN Hypoglycemia Protocol Guaifenesin 1,200 mg 09/16/24 09:00 10/05/24 08:03 Guaifenesin 12 Hr 600 Mg Tabcr PO 1,200 mg BID KELIN Administration Hydralazine HCl 10 mg 10/02/24 08:51 10/04/24 21:42 Hydralazine Hcl 20 Mg/Ml Vial IV PUSH 10 mg Q4H PRN Administration Blood Pressure - High Dextrose 1,000 mls @ 100 mls/hr 09/15/24 12:45 Dextrose 5% 1,000 Ml IVPB PRN PRN Hypoglycemia Protocol Isosorbide Mononitrate 30 mg 09/16/24 09:00 10/05/24 08:01 Isosorbide Mononitrate 30 Mg Tab.Er.24h PO 30 mg DAILY KELIN Administration Levalbuterol HCl 1.25 mg 09/22/24 08:41 Levalbuterol Neb 1.25 Mg/3 Ml INHALATION Q6HRT PRN Shortness Of Breath Lidocaine 2 patch 09/16/24 09:00 10/05/24 08:04 Lidocaine 5% Patch TOPICAL Not Given DAILY KELIN Lorazepam 0.5 mg 10/02/24 12:05 10/04/24 21:45 Lorazepam (*Crx) 0.5 Mg Tablet PO 0.5 mg Q8H PRN Administration Anxiety Losartan Potassium 100 mg 09/16/24 09:00 10/05/24 08:02 Losartan Potassium 100 Mg Tablet PO 100 mg DAILY KELIN Administration Memantine 5 mg 09/16/24 00:25 10/05/24 08:02 Memantine 5 Mg Tablet PO 5 mg Q12HR KELIN Administration Metoprolol Tartrate 100 mg 09/16/24 00:25 10/05/24 08:01 Metoprolol Tartrate 50 Mg Tab PO 100 mg Q12HR KELIN Administration Miscellaneous Information 1 each 10/04/24 00:01 Pregabalin Needs To Be Renewed Or It Will Automatically Discontinue. XX 11/03/24 00:00 CLARIFY KELIN Ondansetron HCl 4 mg 09/15/24 12:45 Ondansetron Inj 4 Mg/2 Ml Vial IV PUSH Q4H PRN Nausea Oxycodone/Acetaminophen 1 tablet 10/03/24 15:56 10/05/24 07:55 Oxycodone/Acetaminophen (*Crx) 5-325 Mg Tablet PO 1 tablet Q4H PRN Administration Pain Rated 7-10 Pantoprazole Sodium 40 mg 09/16/24 09:00 10/05/24 08:03 Pantoprazole 40 Mg Tablet PO 40 mg DAILY [facility] Administration Polyethylene Glycol 17 gm 09/15/24 23:37 Polyethylene Glycol 3350 17 Gm Powd.Pack PO DAILY PRN Constipation Potassium Chloride 10 meq 09/16/24 09:00 10/05/24 08:02 Potassium Chloride 10 Meq Er Tablet PO 10 meq DAILY [facility] Administration Primidone 100 mg 09/22/24 09:00 10/05/24 08:02 Primidone 50 Mg Tablet PO 100 mg TID KELIN Administration Rivaroxaban 20 mg 09/23/24 17:00 09/28/24 17:16 Rivaroxaban 20 Mg Tablet PO 20 mg DAILY@1700 [facility] Administration Sodium Chloride 2 spray 09/15/24 23:37 Saline 0.65% Gordo Soln 44 Ml Btl NASAL PRN PRN Congestion Sodium Chloride 1,000 mg 10/03/24 11:00 10/05/24 08:02 Sodium Chloride 500 Mg Tablet PO 1,000 mg TID [facility] Administration Vitamin B Complex 1 cap 09/16/24 09:00 10/05/24 08:03 Vitamin B Complex Capsule PO 1 cap QAM [facility] Administration Vitamin D 5,000 units 09/16/24 09:00 10/05/24 08:03 Cholecalciferol 5,000 Units Tablet PO 5,000 units DAILY [facility] Administration Vitamin E 800 unit 09/16/24 09:00 10/05/24 08:03 Vitamin E 400 Unit Capsule PO 800 unit DAILY [facility] Administration Radiology Results: ITS Impressions Head CT 09/15/24 11:48 IMPRESSION: 1. 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 No acute intracranial process. 2. Age-related changes including moderate diffuse on loss and mild scattered white matter hypoattenuation consistent with chronic small vessel ischemic disease. Brain MRI 09/18/24 08:50 IMPRESSION: 1. Age-related changes in the brain. No acute intracranial process. 2. 1.3 x 1.2 x 0.9 cm T2 hyperintense intrasellar mass versus cystic lesion. 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 There is been no evident change in appearance of the pituitary on multiple prior CT studies dating back to thousand 17 which would argue against malignancy/metastases. Would recommend obtaining pre and postcontrast pituitary protocol MRI to distinguish solid versus cystic which would aid in narrowing the differential. [facility] MRI 09/19/24 12:56 IMPRESSION: 1. 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 2. 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 Lumbar Puncture Fluoroscopy 09/19/24 14:00 IMPRESSION: 1. Successful fluoro-guided lumbar puncture. Chest X-Ray 09/24/24 07:39 Impression: Central pulmonary venous congestive change. Labs Labs: Laboratory Results - last 24 hr 10/05/24 04:20 WBC 8.0 RBC 4.01 L Hgb 12.5 Hct 36.6 L MCV 91.3 MCH 31.2 MCHC 34.2 RDW 16.0 H Plt Count 253 MPV 11.5 H Immature Gran % (Auto) 1.6 H Neut % (Auto) 56.1 Lymph % (Auto) 26.1 Moody % (Auto) 12.7 H Eos % (Auto) 3.1 Baso % (Auto) 0.4 Lymph # (Auto) 2.10 Moody # (Auto) 1.0 H Eos # (Auto) 0.3 Baso # (Auto) 0.0 Abs Immat Gran (auto) 0.13 H Absolute Neuts (auto) 4.5 Absolute Nucleated RBC 0.000 Nucleated RBC % 0.0 % Immature Plt Fraction 4.6
[2024-10-05] MEDS: ATORVASTATIN 10 MG TABLET PO (20:15)
[2024-10-06] MEDS: oxyCODONE/ACETAMINOPHEN (*CRX) 5-325 MG TABLET 1 TABLET PO ×4 (03:09→16:49)
[2024-10-06 05:21] VITALS: BP 152/74; PULSE 71; RESP 16; TEMP 36.6; O2SAT 96
[2024-10-06 05:24] LABS: Basophils Absolute Auto 0.1 K/mm3 (0.0-0.1); Basophils Percent Auto 0.6 % (0.2-1.2); Eosinophils Absolute Auto 0.5 K/mm3 (0-0.3); Eosinophils Percent Auto 5.5 % (0-4.4); Hematocrit 34.3 % (37.0-47.0); Hemoglobin 11.7 g/dL (12.0-15.0); Immature Granulocyte Absolute 0.12 K/mm3 (0.00-0.031); Immature Granulocyte Percent A 1.4 % (0-0.5); Lymphocytes Absolute Auto 2.92 K/mm3 (0.9-3.2); Lymphocytes Percent Auto 34.4 % (18.3-44.2); Mean Corpuscular HGB Conc 34.1 g/dl (32-36); Mean Corpuscular Hemoglobin 30.5 pg (26-34); Mean Corpuscular Volume 89.6 fl (80-100); Mean Platelet Volume 10.2 fl (7.4-10.4); Monocytes Absolute Auto 1.2 K/mm3 (0.1-0.6); Monocytes Percent Auto 13.8 % (2.6-8.5); Neutrophils Absolute Auto 3.8 K/mm3 (1.3-6.7); Neutrophils Percent Auto 44.3 % (45.5-73.1); Platelet Count Result 255 k/mm3 (150-375); Red Blood Count 3.83 M/mm3 (4.2-5.4); Red Cell Distribution Width 15.4 % (11.5-14.5); White Blood Count 8.5 K/mm3 (4.5-10.0)
[2024-10-06 08:24] VITALS: PULSE 78
[2024-10-06] MEDS: VITAMIN B COMPLEX CAPSULE 1 CAP PO (08:24)
[2024-10-06] MEDS: METOPROLOL TARTRATE 50 MG TAB 100 MG PO ×2 (08:24→20:06)
[2024-10-06] MEDS: amLODIPine BESYLATE 10 MG TABLET PO (08:24)
[2024-10-06] MEDS: VITAMIN E 400 UNIT CAPSULE 800 UNIT PO (08:25)
[2024-10-06] MEDS: ISOSORBIDE MONONITRATE 30 MG TAB.ER.24H PO (08:25)
[2024-10-06] MEDS: POTASSIUM CHLORIDE 10 MEQ ER TABLET PO (08:25)
[2024-10-06] MEDS: BACLOFEN 5 MG TABLET PO ×2 (08:25→16:46)
[2024-10-06] MEDS: PANTOPRAZOLE 40 MG TABLET PO (08:25)
[2024-10-06] MEDS: LOSARTAN POTASSIUM 100 MG TABLET PO (08:25)
[2024-10-06] MEDS: CHOLECALCIFEROL 5,000 UNITS TABLET 5000 UNITS PO (08:25)
[2024-10-06] MEDS: guaiFENesin 12 HR 600 MG TABCR 1200 MG PO ×2 (08:25→16:46)
[2024-10-06] MEDS: SODIUM CHLORIDE 500 MG TABLET 1000 MG PO ×3 (08:25→16:46)
[2024-10-06] MEDS: PRIMIDONE 50 MG TABLET 100 MG PO ×3 (08:25→16:45)
[2024-10-06] MEDS: LIDOCAINE 5% PATCH 2 PATCH TOPICAL (08:26)
[2024-10-06] MEDS: MEMANTINE 5 MG TABLET PO ×2 (08:27→20:06)
--- NOTE | 2024-10-06 09:14 | P.PNIM_ITS ---
Progress Note: A&P Assessment and Plan (1) Altered mental status: Code(s): R41.82 - Altered mental status, unspecified Status: Acute (2) Sepsis: Qualifiers: Sepsis acute organ dysfunction status: unspecified Sepsis type: methicillin resistant Staphylococcus aureus Qualified Code(s): A41.02 - Sepsis due to Methicillin resistant Staphylococcus aureus Code(s): A41.9 - Sepsis, unspecified organism Status: Acute Plan AMS (altered mental status): Code(s): R41.82 - Altered mental status, unspecified Status: Acute Assessment and Plan: Patient presents with altered mental status. She has a normal baseline AOx3 with slow speech. 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 Patient presented with fevers on 09/15. LP performed 09/19 showing no RBCs and 1 WBCs with mostly lymphocytes. Gram stain showing rare WBC and no organisms. Glucose 97 and protein 51. Viral and bacterial meningitis unlikely but she was on abx prior to LP being performed so could be partially treated meningitis. Consider AMS related to polypharmacy. Consider catatonia. Symptoms seem to wax and wane - delirium? CSF HSV PCR negative. Acyclovir stopped. CSF bacterial cultures were NOT sent to [facility] (fungal cx sent); unable to determine if partially treated meningitis but felt less likely. Stop IV abx and monitor Primidone and Baclofen were cuts back. 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 Patient has dysphagia likely resulting from previous multiple stroke I had a long and thought discussions with patient's family: patient's and daughter about prognosis and goals of care, Patient daughter down man request to start feeding tube for G-tube consult GI for tube feeding placement, plans bed tube on Wednesday. Will place NG tube for feeding today 09/30 Patient feels better today, appetite is improving, mental status improving, patient declines NG tube feeding. Waiting patient family to make decision about tube feeding 10/01 Patient is lethargic, unable to engage conversation or follow commands, patient cannot recall her conversation with the care coordinators. Patient has a multiple chronic infarct on MRI, MRI also showed moderate diffuse cerebral volume loss. Patient may have dementia related age and multiple stroke. Current mental status is possible baseline Dysphagia Patient does not have appetite and also had trouble with swallowing Patient ate a little today, patient cannot have enough oral intake to support life Likely secondary to dementia,, possible ischemic dementia, MRI showed multiple strokes before and also brain malacia Patient does not want NG tube feeding But patient is able to eat and drink today. her function seems improving. no need to provide tube feeding, if she continue to improve Started PT/OT/ST. ST recommended dropping her from Level 5 to Level 4 Pureed diet which was done. Discussed with neurology. He recommended continuing to wean primidone every 7 days. Scheduled IV Ativan for possible catatonia. Did have some improvement yesterday but worse today. ABG ordered but this was okay. back off on Ativan. Stop IV abx. 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 p.o. per neurologist recommendation Discontinue furosemide 20 mg b.i.d. p.o. Received IV fluid with normal saline 75 mL/hour Patient cannot tolerate diet well, Insomnia Provide Ambien 2.5 mg q.h.s. Constipation Start Senokot S2 tabs b.i.d. p.o. Sepsis: Qualifiers: Sepsis acute organ dysfunction status: unspecified Sepsis type: sepsis due to unspecified organism Qualified Code(s): A41.9 - Sepsis, unspecified organism Code(s): A41.9 - Sepsis, unspecified organism Status: Acute Assessment and Plan: Noted on admission with fevers, AMS and elevated white count. UTI has been ruled out. Blood cultures negative. Chest x-ray was clear on admission and repeat CXR clear on 09/18. Requiring O2 now. Repeat CXR 09/24 showing congestive changes so Lasix IV once given with good UOP No CSF cultures sent to [facility]. Stop abx and monitor. White blood cell within normal limit, patient is afebrile, Atrial fibrillation with RVR: Code(s): I48.91 - Unspecified atrial fibrillation Status: Acute Assessment and Plan: Review of chart showing she has AFib and was on Xarelto on prior admissions. In the paper chart, the papers from the jail sheets only had 5 of 6 sheets. Suspect the 6th sheet listed additional medications (including Xarelto). RN will call jail to get a complete list of patient's medications. Restarted Xarelto Hypertension: Code(s): I10 - Essential (primary) hypertension Status: Acute Assessment and Plan: Patient's blood pressure was reviewed on 09/26 Blood pressure with wide fluctuations. Hydralazine held. continue to monitor for now Acute and chronic respiratory failure: Qualifiers: Respiratory failure complication: hypoxia Qualified Code(s): J96.21 - Acute and chronic respiratory failure with hypoxia Code(s): J96.20 - Acute and chronic respiratory failure, unspecified whether with hypoxia or hypercapnia Status: Acute Assessment and Plan: ABG in ER - pH of 7.46, pCO2 33.0, PO2 67.4, bicarb 23.0, O2 94.6%. Patient presumably wears oxygen at the facility but has been weaned to room air here Continue CPAP at night and with naps as she allows. Obstructive sleep apnea: Code(s): G47.33 - Obstructive sleep apnea (adult) (pediatric) Status: Acute Assessment and Plan: Continue CPAP at night and with naps as she allows. UTI (urinary tract infection): Qualifiers: Hematuria presence: without hematuria Urinary tract infection type: acute cystitis Qualified Code(s): N30.00 - Acute cystitis without hematuria Code(s): N39.0 - Urinary tract infection, site not specified Status: Resolved Assessment and Plan: UA is consistent with UTI. UCx collected. 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 Abx started. BCx and UCx negative. UTI ruled out. She is having urine retention and unable to tolerate the Delarosa removed 09/25/24. Plan for discharge with Delarosa (8) Tachycardia: Code(s): R00.0 - Tachycardia, unspecified Status: Resolved Assessment and Plan: Probably related to above. Heart rate better controlled. No alarms by tele so tele stopped. I discussed case with Dr. Moran on the phone, he also considers the patient has severe dementia. Patient prognosis is poor, I have tried to reach to patient's family and left message to patient's Obed. we needed discussed with patient family above patient goal of care Patient condition deteriorates, patient could not have enough oral intake to support life the estimated recent delayed discharge from hospital We have several discussion with patient's family and patient about tube feeding to support life, patient does not want to feeding, but patient family requests to provide tube feeding to support the left. had meeting with the patient's family in presents of customer care manager to discuss about the goal of care on phone and in patient's room . we had long discussion about patient condition and prognosis. we are waiting for patient family's decisions to provide care and support for the patient and her family accordingly 10/05 pt will be discharged back to SNF per discussion patient's daughter and customer care manager. Patient can be transferred to home from jail by her daughter once patient's daughter moves back home from [place] Subjective Date/time seen: 10/06/24 09:14 Interval history: I saw examined the patient in presents of patient's family and customer care manager today. Patient mental status improving, patient able eat breakfast. Patient can engage conversation and discussed her condition me and her daughter. She requests Ambien for sleeping and declines to try melatonin. Patient states melatonin is not working for her. Patient feels her strength is coming back. Patient looks happy today. Has no complains. Exam Narrative: GENERAL: Lethargic, ill-appearing in no acute distress. Well-nourished. - EYES: EOMI. Anicteric. - HENT: Dry mucous membranes. - LUNGS: Clear to auscultation bilateral ly, no wheezing, rhonchi, or rales. - CARDIOVASCULAR: Regular rate and rhyth m. No murmur. No JVD. - ABDOMEN: Soft, non-tender and non-dist ended. No palpable masses. - EXTREMITIES: 1+ edema lower extremity edema. Peripheral pulses 2+. Non- tender. - NEUROLOGIC: Patient is unable to foll ow commands, unable to evaluate. General weakness - PSYCHIATRIC: Alert and oriented x to place and person today. - SKIN: No rashes or lesions. Warm. - LYMPH: No cervical lymphadenopathy. Objective Data Vital Signs Vital Signs: Vital Signs - 24 hr 10/05/24 14:00 10/05/24 20:00 10/05/24 20:10 Temperature 97.6 F 97.6 F Pulse Rate 78 75 Respiratory Rate 16 16 Blood Pressure 137/58 L 150/68 H Pulse Oximetry 97 96 Oxygen Delivery Room Air 10/05/24 20:15 10/06/24 05:21 10/06/24 08:24 Temperature 97.8 F Pulse Rate 75 71 78 Respiratory Rate 16 Blood Pressure 152/74 H Pulse Oximetry 96 Oxygen Delivery Intake/Output Intake/Output: Intake & Output 10/03/24 10/04/24 10/05/24 10/06/24 23:59 23:59 23:59 23:59 Intake Total 2059 3600 1235 400 Output Total 2069 2300 2550 950 Balance -10 5594 -4141 -252 Meds/Results Medications: Active Medications Generic Name Dose Route Start Last Admin Trade Name Freq PRN Reason Stop Dose Admin Acetaminophen 650 mg 09/19/24 09:14 Acetaminophen 650 Mg Suppository RECTAL Q6H PRN Mild Pain (1-3) or Fever Acetaminophen 650 mg 09/19/24 10:07 09/30/24 09:26 Acetaminophen 325 Mg Tablet PO 650 mg Q6H PRN Administration Mild Pain (1-3) or Fever Amlodipine Besylate 10 mg 09/16/24 09:00 10/06/24 08:24 Amlodipine Besylate 10 Mg Tablet PO 10 mg DAILY KELIN Administration Artificial Tears 1 drop 09/15/24 23:37 Artificial Tears Ophth Soln 15 Ml Bottle EACH EYE QID PRN Dry Eye(S) Atorvastatin Calcium 10 mg 09/16/24 00:25 10/05/24 20:15 Atorvastatin 10 Mg Tablet PO 10 mg HS KELIN Administration Baclofen 5 mg 09/26/24 17:00 10/06/24 08:25 Baclofen 5 Mg Tablet PO 5 mg BID KLEIN Administration Dextrose 12.5 gm 09/15/24 12:45 Dextrose 50% 25 Gm/50 Ml Syringe IV PUSH PRN PRN Hypoglycemia Protocol Diclofenac Sodium 1 applic 09/15/24 23:37 Diclofenac Sodium 1% 100 Gm Gel (*Bkc) TOPICAL BID PRN moderate pain (scale score 5-6) Fluticasone Propionate 2 spray 09/22/24 16:37 Fluticasone Propionate 0.05% Na Spr 16 Gm Btl (*Bkc) NASAL DAILY PRN Nasal Congestion Glucagon 1 mg 09/15/24 12:45 Glucagon For Inj 1 Mg Vial IM PRN PRN Hypoglycemia Protocol Glucose 15 gm 09/15/24 12:45 Glucose Oral Gel 15 Gm Of Glucse In 37.5 Gm Tube PO PRN PRN Hypoglycemia Protocol Guaifenesin 1,200 mg 09/16/24 09:00 10/06/24 08:25 Guaifenesin 12 Hr 600 Mg Tabcr PO 1,200 mg BID KELIN Administration Hydralazine HCl 10 mg 10/02/24 08:51 10/04/24 21:42 Hydralazine Hcl 20 Mg/Ml Vial IV PUSH 10 mg Q4H PRN Administration Blood Pressure - High Dextrose 1,000 mls @ 100 mls/hr 09/15/24 12:45 Dextrose 5% 1,000 Ml IVPB PRN PRN Hypoglycemia Protocol Isosorbide Mononitrate 30 mg 09/16/24 09:00 10/06/24 08:25 Isosorbide Mononitrate 30 Mg Tab.Er.24h PO 30 mg DAILY KELIN Administration Levalbuterol HCl 1.25 mg 09/22/24 08:41 Levalbuterol Neb 1.25 Mg/3 Ml INHALATION Q6HRT PRN Shortness Of Breath Lidocaine 2 patch 09/16/24 09:00 10/06/24 08:26 Lidocaine 5% Patch TOPICAL 2 patch DAILY KELIN Administration Lorazepam 0.5 mg 10/02/24 12:05 10/04/24 21:45 Lorazepam (*Crx) 0.5 Mg Tablet PO 0.5 mg Q8H PRN Administration Anxiety Losartan Potassium 100 mg 09/16/24 09:00 10/06/24 08:25 Losartan Potassium 100 Mg Tablet PO 100 mg DAILY KELIN Administration Memantine 5 mg 09/16/24 00:25 10/06/24 08:27 Memantine 5 Mg Tablet PO 5 mg Q12HR KELIN Administration Metoprolol Tartrate 100 mg 09/16/24 00:25 10/06/24 08:24 Metoprolol Tartrate 50 Mg Tab PO 100 mg Q12HR KELIN Administration Miscellaneous Information 1 each 10/04/24 00:01 Pregabalin Needs To Be Renewed Or It Will Automatically Discontinue. XX 11/03/24 00:00 CLARIFY KELIN Ondansetron HCl 4 mg 09/15/24 12:45 Ondansetron Inj 4 Mg/2 Ml Vial IV PUSH Q4H PRN Nausea Oxycodone/Acetaminophen 1 tablet 10/03/24 15:56 10/06/24 08:25 Oxycodone/Acetaminophen (*Crx) 5-325 Mg Tablet PO 1 tablet Q4H PRN Administration Pain Rated 7-10 Pantoprazole Sodium 40 mg 09/16/24 09:00 10/06/24 08:25 Pantoprazole 40 Mg Tablet PO 40 mg DAILY KELIN Administration Polyethylene Glycol 17 gm 09/15/24 23:37 Polyethylene Glycol 3350 17 Gm Powd.Pack PO DAILY PRN Constipation Potassium Chloride 10 meq 09/16/24 09:00 10/06/24 08:25 Potassium Chloride 10 Meq Er Tablet PO 10 meq DAILY KELIN Administration Primidone 100 mg 09/22/24 09:00 10/06/24 08:25 Primidone 50 Mg Tablet PO 100 mg TID KELIN Administration Rivaroxaban 20 mg 09/23/24 17:00 09/28/24 17:16 Rivaroxaban 20 Mg Tablet PO 20 mg DAILY@1700 [facility] Administration Sodium Chloride 2 spray 09/15/24 23:37 Saline 0.65% G[place] Soln 44 Ml Btl NASAL PRN PRN Congestion Sodium Chloride 1,000 mg 10/03/24 11:00 10/06/24 08:25 Sodium Chloride 500 Mg Tablet PO 1,000 mg TID [facility] Administration Vitamin B Complex 1 cap 09/16/24 09:00 10/06/24 08:24 Vitamin B Complex Capsule PO 1 cap QAM [facility] Administration Vitamin D 5,000 units 09/16/24 09:00 10/06/24 08:25 Cholecalciferol 5,000 Units Tablet PO 5,000 units DAILY KELIN Administration Vitamin E 800 unit 09/16/24 09:00 10/06/24 08:25 Vitamin E 400 Unit Capsule PO 800 unit DAILY KELIN Administration Radiology Results: ITS Impressions Head CT 09/15/24 11:48 IMPRESSION: 1. 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 No acute intracranial process. 2. Age-related changes including moderate diffuse on loss and mild scattered white matter hypoattenuation consistent with chronic small vessel ischemic disease. Brain MRI 09/18/24 08:50 IMPRESSION: 1. Age-related changes in the brain. No acute intracranial process. 2. 1.3 x 1.2 x 0.9 cm T2 hyperintense intrasellar mass versus cystic lesion. 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 There is been no evident change in appearance of the pituitary on multiple prior CT studies dating back to thousand 17 which would argue against malignancy/metastases. Would recommend obtaining pre and postcontrast pituitary protocol MRI to distinguish solid versus cystic which would aid in narrowing the differential. Sella Turcica MRI 09/19/24 12:56 IMPRESSION: 1. 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 2. 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 Lumbar Puncture Fluoroscopy 09/19/24 14:00 IMPRESSION: 1. Successful fluoro-guided lumbar puncture. Chest X-Ray 09/24/24 07:39 Impression: Central pulmonary venous congestive change. Labs Labs: Laboratory Results - last 24 hr 10/06/24 04:45 WBC 8.5 RBC 3.83 L Hgb 11.7 L Hct 34.3 L MCV 89.6 MCH 30.5 MCHC 34.1 RDW 15.4 H Plt Count 255 MPV 10.2 Immature Gran % (Auto) 1.4 H Neut % (Auto) 44.3 L Lymph % (Auto) 34.4 [place] % (Auto) 13.8 H Eos % (Auto) 5.5 H Baso % (Auto) 0.6 Lymph # (Auto) 2.92 [place] # (Auto) 1.2 H Eos # (Auto) 0.5 H Baso # (Auto) 0.1 Abs Immat Gran (auto) 0.12 H Absolute Neuts (auto) 3.8 Absolute Nucleated RBC 0.000 Nucleated RBC % 0.0
[2024-10-06 14:00] VITALS: BP 186/73; PULSE 68; RESP 16; TEMP 36.7; O2SAT 98
[2024-10-06] MEDS: SENNOSIDES 8.6 MG TABLET PO (16:46)
[2024-10-06 20:06] VITALS: PULSE 70
[2024-10-06] MEDS: ATORVASTATIN 10 MG TABLET PO (20:06)
[2024-10-06] MEDS: ZOLPIDEM TARTRATE (*CRX) 2.5 MG TABLET PO (20:06)
[2024-10-06 20:10] VITALS: BP 178/60; PULSE 77; RESP 16; TEMP 36.6; O2SAT 98
[2024-10-07] MEDS: oxyCODONE/ACETAMINOPHEN (*CRX) 5-325 MG TABLET 1 TABLET PO ×3 (02:52→20:15)
[2024-10-07] MEDS: ACETAMINOPHEN 325 MG TABLET 650 MG PO (04:40)
[2024-10-07 07:02] VITALS: BP 180/75; PULSE 75; RESP 16; TEMP 36.4; O2SAT 97
[2024-10-07 10:22] VITALS: PULSE 80
[2024-10-07] MEDS: SENNA/DOCUSATE SODIUM TABLET 2 TAB PO ×2 (10:22→18:38)
[2024-10-07] MEDS: PRIMIDONE 50 MG TABLET 100 MG PO ×3 (10:22→18:37)
[2024-10-07] MEDS: METOPROLOL TARTRATE 50 MG TAB 100 MG PO ×2 (10:22→20:06)
[2024-10-07] MEDS: POTASSIUM CHLORIDE 10 MEQ ER TABLET PO (10:25)
[2024-10-07] MEDS: VITAMIN E 400 UNIT CAPSULE 800 UNIT PO (10:25)
[2024-10-07] MEDS: CHOLECALCIFEROL 5,000 UNITS TABLET 5000 UNITS PO (10:26)
[2024-10-07] MEDS: SODIUM CHLORIDE 500 MG TABLET 1000 MG PO ×3 (10:26→18:37)
[2024-10-07] MEDS: PANTOPRAZOLE 40 MG TABLET PO (10:26)
[2024-10-07] MEDS: LOSARTAN POTASSIUM 100 MG TABLET PO (10:26)
[2024-10-07] MEDS: SENNOSIDES 8.6 MG TABLET PO (10:27)
[2024-10-07] MEDS: amLODIPine BESYLATE 10 MG TABLET PO (10:27)
[2024-10-07] MEDS: ISOSORBIDE MONONITRATE 30 MG TAB.ER.24H PO (10:27)
[2024-10-07] MEDS: VITAMIN B COMPLEX CAPSULE 1 CAP PO (10:27)
[2024-10-07] MEDS: BACLOFEN 5 MG TABLET PO ×2 (10:30→18:38)
[2024-10-07] MEDS: guaiFENesin 12 HR 600 MG TABCR 1200 MG PO ×2 (10:30→18:37)
[2024-10-07] MEDS: LIDOCAINE 5% PATCH 2 PATCH TOPICAL (10:30)
[2024-10-07] MEDS: MEMANTINE 5 MG TABLET PO ×2 (10:30→20:05)
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
[2024-10-07 11:19] LABS: Basophils Percent Auto 0.5 % (0.2-1.2); Eosinophils Absolute Auto 0.3 K/mm3 (0-0.3); Eosinophils Percent Auto 4.1 % (0-4.4); Hematocrit 34.3 % (37.0-47.0); Hemoglobin 12.4 g/dL (12.0-15.0); Immature Granulocyte Absolute 0.08 K/mm3 (0.00-0.031); Lymphocytes Absolute Auto 2.24 K/mm3 (0.9-3.2); Lymphocytes Percent Auto 28.1 % (18.3-44.2); Mean Corpuscular HGB Conc 36.2 g/dl (32-36); Mean Corpuscular Hemoglobin 31.3 pg (26-34); Mean Corpuscular Volume 86.6 fl (80-100); Mean Platelet Volume 9.4 fl (7.4-10.4); Monocytes Percent Auto 11.9 % (2.6-8.5); Neutrophils Absolute Auto 4.3 K/mm3 (1.3-6.7); Neutrophils Percent Auto 54.4 % (45.5-73.1); Platelet Count Result 229 k/mm3 (150-375); Red Blood Count 3.96 M/mm3 (4.2-5.4); Red Cell Distribution Width 14.6 % (11.5-14.5)
[2024-10-07 11:34] LABS: Anion Gap 11 mmol/L (4-12); Blood Urea Nitrogen 11 mg/dL (7-17); Calcium 8.3 mg/dL (8.4-10.2); Carbon Dioxide 22 mmol/L (22-30); Chloride 80 mmol/L (98-107); Estimated CRCL calculation 93 ml/min; Estimated Glomerular Filt Rate > 60; Glucose 126 mg/dL (65-110); Magnesium 1.3 mg/dL (1.6-2.3); Potassium 4.5 mmol/L (3.4-5.0); Sodium 113 mmol/L (137-145)
--- NOTE | 2024-10-07 12:33 | PM.CNNEP ---
Assessment and Plan Assessment and plan (1) Hyponatremia: Code(s): E87.1 - Hypo-osmolality and hyponatremia Status: Acute Assessment and Plan: the patient has chronic hyponatremia. This is likely due to multiple issues and occluding pulmonary disease, proton pump inhibitor, poor osmolar intake with more generous fluid intake and in the past narcotics and a new development with the multiple cerebellar strokes.. Her baseline sodium seems to run in the high 120s in the 130s. The sodium level was a little bit down on 10/03 but is now down much more. She has been off of her Lasix since 09/24 but the sodium did not start dropping until 10/03. However adding the Lasix back would probably help the sodium. It is hard to know whether she has mental status changes because her baseline mental status is not optimal. Will give her a little bit of 3% saline just to get her up to about 116 and then I would add Lasix back to help reduce the urine osmolality and along with the salt tablet should bring her sodium level up gradually. The patient is on pantoprazole. Will change this to famotidine. (2) AMS (altered mental status): Code(s): R41.82 - Altered mental status, unspecified Status: Acute Assessment and Plan: This seems at baseline right now (3) Dysphagia: Qualifiers: Dysphagia type: esophageal phase Qualified Code(s): R13.19 - Other dysphagia Code(s): R13.10 - Dysphagia, unspecified Status: Acute Assessment and Plan: patient is getting speech therapy (4) Obstructive sleep apnea: Code(s): G47.33 - Obstructive sleep apnea (adult) (pediatric) Status: Acute Assessment and Plan: the patient does not tolerate a CPAP m (5) HTN (hypertension): Qualifiers: Hypertension type: essential hypertension Qualified Code(s): I10 - Essential (primary) hypertension Code(s): I10 - Essential (primary) hypertension Status: Chronic Assessment and Plan: her blood pressure is high. She is on amlodipine, losartan, and p.r.n. hydralazine. Will change amlodipine to nifedipine (6) HLD (hyperlipidemia): Qualifiers: Hyperlipidemia type: unspecified Qualified Code(s): E78.5 - Hyperlipidemia, unspecified Code(s): E78.5 - Hyperlipidemia, unspecified Status: Chronic Assessment and Plan: the patient is on atorvastatin (7) CVA (cerebral vascular accident): Code(s): I63.9 - Cerebral infarction, unspecified Status: Acute Assessment and Plan: neurology is seeing the patient History of Present Illness Reason for Consult Consult date: 10/07/24 Chief Complaint Chief complaint: sepsis,uti,ams History of Present Illness Narrative: zeny is a very pleasant 73-year-old lady who has multiple medical problems including chronic hyponatremia for years she says, history of a stroke in August, his recent history of pneumonia, bipolar disorder, chronic respiratory failure on home oxygen, GERD, epilepsy, neuro cognitive disorder, kidney stone, anemia, GERD, hyperlipidemia, sleep apnea but does not use a machine. The patient was admitted on the 08 of September for pneumonia. She was treated for this. She had mental status changes because of the pneumonia and this improved with treatment there of. She was discharged on the . On the she was seen in the emergency room because of altered mental status and fever. the patient was found to have a UTI. She was placed on antibiotics. During this hospital stay she was had a CT scan of the brain which was followed by an MRI of the brain which showed chronic infarcts in both cerebellar hemispheres. She had a lumbar puncture is well. Overall mental status did not improve very much in she was not eating so G-tube was placed and she is getting tube feedings. The patient can answer yes some yes no questions and some more broad questions but no complex interaction. It is felt that her current mental status is her baseline. The nurse says that she is acting now about the same she has been acting. The patient has been getting chemistries along the way. on a chronic basis her sodium level seems to run somewhere between 125 and 132. It has been fairly low in the past. For example early in August her sodium level was only 119. She was treated with salt tablet and fluid restriction and her level improved to normal. On readmission her sodium level was okay but then dropped and seemed to stabilize around 130. On the her sodium was 125 and today the sodium is 113 so renal consultation was requested. Dr. Goodson on go saw her back in April when her sodium level was low. He pointed out that the sodium has been low since 2019 and has a wide variation. He felt that her low sodium level was due to chronic respiratory failure, chronic pain, and at that time the patient was on narcotics and diuretics without salt tabs. She also was on PPIs. The patient was discharged on sodium chloride 1000 twice a day and furosemide 10mg twice a day. Currently the patient is on sodium chloride 1000mg 3 times a day. Review of Systems Constitutional: Constitutional: Reports no additional constitutional complaints Eyes: Eyes: Reports no additional eye complaints ENT: Reports system reviewed and no additional complaints, except as documented Cardiovascular: Cardiovascular: Reports no additional cardiovascular complaints Respiratory: Respiratory: Reports no additional respiratory complaints Gastrointestinal: Gastrointestinal: Reports no additional gastrointestinal complaints Genitourinary: Genitourinary: Reports no additional female genitourinary complaints Musculoskeletal: Musculoskeletal: Reports no additional musculoskeletal complaints Integumentary/Breasts: Skin/Breast: Reports system reviewed and no additional complaints, except as docu Neurologic: Reports system reviewed and no additional complaints, except as documented Psychiatric: Psychiatric: Reports no additional psychiatric complaints Endocrine: Endocrine: Reports no additional endocrine complaints PMFSH Past Medical History Medical History Failure to thrive CVA (cerebral vascular accident) Chronic anticoagulation Kidney stone Chronic anemia Chronic respiratory failure with hypoxia, on home oxygen therapy Bipolar disorder Gastroesophageal reflux disease Hyperlipidemia Hypertension Obstructive sleep apnea intolerant to CPAP Left tibial fracture Chronic hyponatremia Shingles Anxiety Depression Gastroparesis Diverticulitis Asthma Epilepsy no longer on medication Seasonal allergies Surgical History Surgical History History of left above knee amputation History of right shoulder replacement History of cholecystectomy History of left knee replacement History of hysterectomy History of open reduction and internal fixation (ORIF) procedure Left tibia and right ankle. History of appendectomy History of tonsillectomy Family History Family History Mother Suicide Depression Heart disease Hypertension Heart failure Sibling Suicide Father Diabetes mellitus Emphysema lung Social History Social History Social History: Surrogate medical decision maker: Martina Rodney, daughter. Code status: Full code. Smoking status: Never smoker Second hand tobacco smoke exposure: No Alcohol intake: never Substance use: never Substance use type: does not use Do You Feel Safe in your Home?: Yes Lack of Transportation: No Lack of Food: Never True Current Housing: I Have Housing Concerned About Future Housing: No Difficulty Paying Gas/Electric Bills: No Difficulty Paying for Meds: No Currently Unemployed: No Education: Decline to Answer Difficulty w/ Childcare or Family Care: No Living arrangements: longterm village Occupation/Education: retired Spiritual care concerns: No Agree to blood products: No Meds Home Medications and Allergies Home Medications ?Medication ?Instructions ?Recorded ?Confirmed ?Type atorvastatin 10 mg tablet 10 mg PO HS 09/09/19 09/15/24 History cholecalciferol (vitamin D3) 10 5,000 unit PO DAILY 09/09/19 09/15/24 History mcg (400 unit) tablet fluticasone propionate 50 2 spray intranasal DAILY 09/09/19 09/15/24 History mcg/actuation nasal spray,suspension pantoprazole 40 mg tablet,delayed 40 mg PO DAILY 09/09/19 09/15/24 History release primidone 50 mg tablet 200 mg PO BID 09/09/19 09/15/24 History vitamin E 268 mg (400 unit) capsule 800 unit PO DAILY 09/09/19 09/15/24 History docusate sodium 100 mg tablet 100 mg PO DAILY PRN Constipation 05/31/20 09/15/24 History spironolactone 25 mg tablet 25 mg PO DAILY 05/31/20 09/15/24 History baclofen 10 mg tablet 10 mg PO TID 02/19/21 09/15/24 History albuterol sulfate 90 mcg/actuation 1 inh inhalation DAILY PRN 04/23/24 09/15/24 History aerosol inhaler sob/wheezing amlodipine 10 mg tablet 10 mg PO DAILY 04/23/24 09/15/24 History bisacodyl 5 mg tablet,delayed 10 mg PO HS PRN Constipation 04/23/24 09/15/24 History release (Dulcolax (bisacodyl)) guaifenesin 1,200 mg tablet, 1,200 mg PO BID 04/23/24 09/15/24 History extended release 12 hr (Mucinex) memantine 5 mg tablet 5 mg PO BID 04/23/24 09/15/24 History metoprolol tartrate 100 mg tablet 100 mg PO BID 04/23/24 09/15/24 History ondansetron HCl 4 mg tablet 4 mg PO TID 04/23/24 09/15/24 History polyethylene glycol 3350 17 17 g PO DAILY PRN Constipation 04/23/24 09/15/24 History gram/dose oral powder (Miralax) sodium chloride 0.65 % nasal spray 2 spray intranasal PRN PRN 04/23/24 09/15/24 History aerosol Congestion vitamin B complex 1 tablet PO DAILY 04/23/24 09/15/24 History pregabalin 150 mg capsule (Lyrica) 150 mg PO BID #14 caps 05/04/24 09/15/24 Rx diclofenac sodium 1 % topical gel 2 g topical BID PRN moderate pain 08/06/24 09/15/24 History (Voltaren Arthritis Pain) (scale score 5-6) isosorbide mononitrate 30 mg 30 mg PO DAILY 08/06/24 09/15/24 History tablet,extended release 24 hr lidocaine 5 % topical patch 2 patch topical DAILY 08/06/24 09/15/24 History (Lidoderm) magnesium hydroxide 400 mg/5 mL 30 ml PO DAILY PRN constipation 08/06/24 09/15/24 History oral suspension (Gentle Laxative (magnesium hydroxide)) hydralazine 10 mg tablet 10 mg PO QID #30 tabs 08/14/24 09/15/24 Rx oxycodone 5 mg tablet 5 mg PO Q4-6H PRN Pain #7 tabs 08/14/24 09/15/24 Rx peg [id number] 1 1 drp EACH EYE QID PRN Dry Eye(S) 08/14/24 09/15/24 Rx %-0.2 %-0.2 % eye drops #30 mL (Artificial Tears ([id number])) clonidine HCl 0.1 mg tablet 0.1 mg PO DAILY 09/07/24 09/15/24 History furosemide 20 mg tablet (Lasix) 20 mg PO BID 09/07/24 09/15/24 History isosorbide dinitrate 30 mg tablet 30 mg PO QID 09/07/24 09/15/24 History lorazepam 0.5 mg tablet 0.5 mg PO Q6H PRN Anxiety 09/07/24 09/15/24 History losartan 100 1 tablet PO DAILY 09/07/24 09/15/24 History mg-hydrochlorothiazide 25 mg tablet potassium chloride 10 mEq 10 meq PO DAILY #7 tabs 09/14/24 09/15/24 Rx tablet,extended release (Klor-Con) lorazepam 0.5 mg tablet 0.5 mg PO Q8H PRN Anxiety #20 tabs 10/07/24 Rx Allergies Allergy/AdvReac Type Severity Reaction Status Date / Time Fish Containing Products Allergy Severe Dyspnea / Verified 04/23/24 19:11 SOB Iodinated Contrast Media Allergy Intermediate HIVES, RED Verified 04/27/24 08:14 FACE iodine Allergy Unknown Unknown Verified 04/23/24 19:11 Barbiturates Allergy Unknown Verified 04/23/24 19:11 bupivacaine Allergy Unknown Verified 04/23/24 20:51 diazepam (From Valium) Allergy Unknown Verified 04/23/24 19:11 latex Allergy Unknown Verified 04/23/24 19:11 menthol Allergy Unknown Verified 04/23/24 20:51 Sulfa (Sulfonamide Allergy Unknown Verified 04/23/24 19:11 Antibiotics) thiopental (From Pentothal) Allergy Unknown Verified 04/27/24 08:14 wool Allergy Unknown Verified 04/23/24 20:51 Vital Signs Vital Signs - 24 hr 10/06/24 14:00 10/06/24 20:06 10/06/24 20:10 Temperature 98.0 F 97.9 F Pulse Rate 68 70 77 Respiratory Rate 16 16 Blood Pressure 186/73 H 178/60 H Pulse Oximetry 98 98 10/07/24 07:02 10/07/24 10:22 Temperature 97.6 F Pulse Rate 75 80 Respiratory Rate 16 Blood Pressure 180/75 H Pulse Oximetry 97 Exam Narrative: Exam Narrative: Well developed well-nourished in no acute distress Skin is warm and dry without rash Head normocephalic atraumatic Eyes normal sclerae and conjunctivae Mouth normal lips teeth and gums Neck no nodes no thyromegaly no carotid bruits Axillae no nodes Back no CVA tenderness Lungs symmetric and clear to auscultation and percussion Heart regular rate and rhythm without rub or gallop Abdomen bowel sounds positive soft nontender, no HSM, masses, or bruits. Extremities no cyanosis, clubbing, or edema Pulses 2+ equal in radial arteries Psychological not anxious or depressed Neuro alert and oriented x3 motor 5/5 cranial nerves 2-12 intact reflexes 2+ and equal in the biceps and patellar tendons cerebellar normal rapid alternating movements Results Lab Results 10/07/24 11:14 10/07/24 11:14 Lab results: Most recent lab results ABG pH 7.442 (7.350-7.450) 09/26/24 14:44 ABG pCO2 40.1 mmHg (35.0-45.0) 09/26/24 14:44 ABG pO2 79.0 mmHg (80.0-100.0) L 09/26/24 14:44 ABG HCO3 26.7 mEq/l (22.0-26.0) H 09/26/24 14:44 ABG O2 Saturation 96.1 % (95.0-100.0) 09/26/24 14:44 Calcium 8.3 mg/dL (8.4-10.2) L 10/07/24 11:14 Phosphorus 3.8 mg/dL (2.5-4.5) 10/03/24 07:13 Magnesium 1.3 mg/dL (1.6-2.3) L 10/07/24 11:14
[2024-10-07 13:54] LABS: Cortisol Random 7.77 ug/dL; Thyroid Stimulating Hormone Reflex 0.418 uIU/mL (0.465-4.68)
[2024-10-07 14:18] LABS: Free T4 Free Thyroxine Reflex 0.69 ng/dL (0.78-2.19)
--- NOTE | 2024-10-07 15:31 | PC.NURSE ---
On 10/07/24, the COMMERCIAL ASSISTANT, Anca Sanabria, provided care and completed [facility] documentation on this patient. I have reviewed the COMMERCIAL ASSISTANT's documentation and agree with the findings.
[2024-10-07] MEDS: SODIUM CHLORIDE 3% 255 ML 85 ML IV CONT ×2 (15:33→21:16)
[2024-10-07 15:53] VITALS: BP 175/68; PULSE 74; RESP 16; TEMP 36.8; O2SAT 94
[2024-10-07] MEDS: FUROSEMIDE 10 MG TABLET PO (18:38)
[2024-10-07 20:06] VITALS: PULSE 80
[2024-10-07] MEDS: ZOLPIDEM TARTRATE (*CRX) 2.5 MG TABLET PO (20:06)
[2024-10-07] MEDS: ATORVASTATIN 10 MG TABLET PO (20:06)
[2024-10-07 20:14] LABS: Sodium 114 mmol/L (137-145)
[2024-10-07 20:33] LABS: Sodium Urine Random 104 meq/L
[2024-10-07 20:38] LABS: Creatinine Urine 4.7 mg/dL; Total Protein Urine Random 13 mg/dL; Ur Ttl Prot Creatinine Ratio 2.77 mg/mg (0-0.20)
[2024-10-07 21:26] VITALS: BP 167/67; PULSE 66; RESP 16; TEMP 36.4; O2SAT 98
[2024-10-08] VITALS (8 sets, daily range): BP systolic 151–187; BP diastolic 65–81; PULSE 80–98; RESP 16; TEMP 36.4–37; O2SAT 95–99
[2024-10-08] MEDS: oxyCODONE/ACETAMINOPHEN (*CRX) 5-325 MG TABLET 1 TABLET PO ×3 (00:29→12:44)
[2024-10-08 07:39] LABS: Protein, Total 5.4 g/dL (6.1-8.1)
[2024-10-08 08:48] LABS: Basophils Percent Auto 0.5 % (0.2-1.2); Eosinophils Absolute Auto 0.6 K/mm3 (0-0.3); Eosinophils Percent Auto 6.5 % (0-4.4); Hematocrit 32.6 % (37.0-47.0); Hemoglobin 11.6 g/dL (12.0-15.0); Immature Granulocyte Absolute 0.08 K/mm3 (0.00-0.031); Immature Granulocyte Percent A 0.9 % (0-0.5); Lymphocytes Absolute Auto 2.48 K/mm3 (0.9-3.2); Lymphocytes Percent Auto 28.9 % (18.3-44.2); Mean Corpuscular HGB Conc 35.6 g/dl (32-36); Mean Corpuscular Hemoglobin 30.8 pg (26-34); Mean Corpuscular Volume 86.5 fl (80-100); Mean Platelet Volume 9.7 fl (7.4-10.4); Monocytes Absolute Auto 1.1 K/mm3 (0.1-0.6); Monocytes Percent Auto 12.2 % (2.6-8.5); Neutrophils Absolute Auto 4.4 K/mm3 (1.3-6.7); Platelet Count Result 201 k/mm3 (150-375); Red Blood Count 3.77 M/mm3 (4.2-5.4); Red Cell Distribution Width 14.7 % (11.5-14.5); White Blood Count 8.6 K/mm3 (4.5-10.0)
--- NOTE | 2024-10-08 08:51 | P.PNIM_ITS ---
Progress Note: A&P Assessment and Plan (1) Altered mental status: Code(s): R41.82 - Altered mental status, unspecified Status: Acute (2) Sepsis: Qualifiers: Sepsis acute organ dysfunction status: unspecified Sepsis type: methicillin resistant Staphylococcus aureus Qualified Code(s): A41.02 - Sepsis due to Methicillin resistant Staphylococcus aureus Code(s): A41.9 - Sepsis, unspecified organism Status: Acute (3) Anxiety: Code(s): F41.9 - Anxiety disorder, unspecified Status: Chronic Plan AMS (altered mental status): Code(s): R41.82 - Altered mental status, unspecified Status: Acute Assessment and Plan: Patient presents with altered mental status. She has a normal baseline AOx3 with slow speech. 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 Patient presented with fevers on 09/15. LP performed 09/19 showing no RBCs and 1 WBCs with mostly lymphocytes. Gram stain showing rare WBC and no organisms. Glucose 97 and protein 51. Viral and bacterial meningitis unlikely but she was on abx prior to LP being performed so could be partially treated meningitis. Consider AMS related to polypharmacy. Consider catatonia. Symptoms seem to wax and wane - delirium? CSF HSV PCR negative. Acyclovir stopped. CSF bacterial cultures were NOT sent to [facility] (fungal cx sent); unable to determine if partially treated meningitis but felt less likely. Stop IV abx and monitor Primidone and Baclofen were cuts back. 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 Patient has dysphagia likely resulting from previous multiple stroke I had a long and thought discussions with patient's family: patient's and daughter about prognosis and goals of care, Patient daughter down man request to start feeding tube for G-tube consult GI for tube feeding placement, plans bed tube on Wednesday. Will place NG tube for feeding today 09/30 Patient feels better today, appetite is improving, mental status improving, patient declines NG tube feeding. Waiting patient family to make decision about tube feeding 10/01 Patient is lethargic, unable to engage conversation or follow commands, patient cannot recall her conversation with the care coordinators. Patient has a multiple chronic infarct on MRI, MRI also showed moderate diffuse cerebral volume loss. Patient may have dementia related age and multiple stroke. 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 p.o. per neurologist recommendation Discontinue furosemide 20 mg b.i.d. p.o. Received IV fluid with normal saline 75 mL/hour Patient cannot tolerate diet well, Sodium dropped to 113 10/07 Appreciate clinical dental technician consultation, Start hypertonic saline per clinical dental technician Dysphagia Patient does not have appetite and also had trouble with swallowing Patient ate a little today, patient cannot have enough oral intake to support life Likely secondary to dementia,, possible ischemic dementia, MRI showed multiple strokes before and also brain malacia Patient does not want NG tube feeding But patient is able to eat and drink today. her function seems improving. no need to provide tube feeding, if she continue to improve Started PT/OT/ST. ST recommended dropping her from Level 5 to Level 4 Pureed diet which was done. Discussed with neurology. He recommended continuing to wean primidone every 7 days. Scheduled IV Ativan for possible catatonia. Did have some improvement yesterday but worse today. ABG ordered but this was okay. back off on Ativan. Stop IV abx. Pending neurologist's follow-up consultation Insomnia Provide Ambien 2.5 mg q.h.s. Constipation Start Senokot S2 tabs b.i.d. p.o. Sepsis: Qualifiers: Sepsis acute organ dysfunction status: unspecified Sepsis type: sepsis due to unspecified organism Qualified Code(s): A41.9 - Sepsis, unspecified organism Code(s): A41.9 - Sepsis, unspecified organism Status: Acute Assessment and Plan: Noted on admission with fevers, AMS and elevated white count. UTI has been ruled out. Blood cultures negative. Chest x-ray was clear on admission and repeat CXR clear on 09/18. Requiring O2 now. Repeat CXR 09/24 showing congestive changes so Lasix IV once given with good UOP No CSF cultures sent to [facility]. Stop abx and monitor. White blood cell within normal limit, patient is afebrile, Atrial fibrillation with RVR: Code(s): I48.91 - Unspecified atrial fibrillation Status: Acute Assessment and Plan: Review of chart showing she has AFib and was on Xarelto on prior admissions. In the paper chart, the papers from the [place] [facility] sheets only had 5 of 6 sheets. Suspect the 6th sheet listed additional medications (including Xarelto). RN will call [facility] to get a complete list of patient's medications. Restarted Xarelto Hypertension: Code(s): I10 - Essential (primary) hypertension Status: Acute Assessment and Plan: Patient's blood pressure was reviewed on 09/26 Blood pressure with wide fluctuations. Hydralazine held. continue to monitor for now Acute and chronic respiratory failure: Qualifiers: Respiratory failure complication: hypoxia Qualified Code(s): J96.21 - Acute and chronic respiratory failure with hypoxia Code(s): J96.20 - Acute and chronic respiratory failure, unspecified whether with hypoxia or hypercapnia Status: Acute Assessment and Plan: ABG in ER - pH of 7.46, pCO2 33.0, PO2 67.4, bicarb 23.0, O2 94.6%. Patient presumably wears oxygen at the facility but has been weaned to room air here Continue CPAP at night and with naps as she allows. Obstructive sleep apnea: Code(s): G47.33 - Obstructive sleep apnea (adult) (pediatric) Status: Acute Assessment and Plan: Continue CPAP at night and with naps as she allows. UTI (urinary tract infection): Qualifiers: Hematuria presence: without hematuria Urinary tract infection type: acute cystitis Qualified Code(s): N30.00 - Acute cystitis without hematuria Code(s): N39.0 - Urinary tract infection, site not specified Status: Resolved Assessment and Plan: UA is consistent with UTI. UCx collected. 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 Abx started. BCx and UCx negative. UTI ruled out. She is having urine retention and unable to tolerate the Delarosa removed 09/25/24. Plan for discharge with Delarosa Tachycardia: Code(s): R00.0 - Tachycardia, unspecified Status: Resolved Assessment and Plan: Probably related to above. Heart rate better controlled. No alarms by tele so tele stopped. I discussed case with Dr. Moran on the phone, he also considers the patient has severe dementia. Patient prognosis is poor, I have tried to reach to patient's family and left message to patient's Obed. we needed discussed with patient family above patient goal of care Patient condition deteriorates, patient could not have enough oral intake to support life the estimated recent delayed discharge from hospital We have several discussion with patient's family and patient about tube feeding to support life, patient does not want to feeding, but patient family requests to provide tube feeding to support the left. had meeting with the patient's family in presents of assistant child care teacher to discuss about the goal of care on phone and in patient's room . we had long discussion about patient condition and prognosis. we are waiting for patient family's decisions to provide care and support for the patient and her family accordingly 10/05 pt will be discharged back to SNF per discussion patient's daughter and assistant child care teacher. Patient can be transferred to home from [facility] by her daughter once patient's daughter moves back home from [place] Patient has a prolonged hospitalization because the patient requires continued hospitalization for treatment of severe hyponatremia, altered mental status due to multiple comorbidities and acute issues, and also patient has poor intake due to chronic and acute illness Subjective Date/time seen: 10/08/24 08:51 Interval history: I saw examined the patient. Patient feels tired, lethargic. Patient ate a little early am. patient has no appetite Labs reviewed, patient received hypertonic saline yesterday, sodium 115 it infrastructure architect Exam Narrative: GENERAL: Lethargic, ill-appearing in no acute distress. Well-nourished. - EYES: EOMI. Anicteric. - HENT: Dry mucous membranes. - LUNGS: Clear to auscultation bilateral ly, no wheezing, rhonchi, or rales. - CARDIOVASCULAR: Regular rate and rhyth m. No murmur. No JVD. - ABDOMEN: Soft, non-tender and non-dist ended. No palpable masses. - EXTREMITIES: 1+ edema lower extremity edema. Peripheral pulses 2+. Non- tender. - NEUROLOGIC: Patient is unable to foll ow commands, unable to evaluate. General weakness - PSYCHIATRIC: Alert and oriented x to place and person - SKIN: No rashes or lesions. Warm. - LYMPH: No cervical lymphadenopathy. Objective Data Vital Signs Vital Signs: Vital Signs - 24 hr 10/07/24 10:20 10/07/24 10:22 10/07/24 15:53 Temperature 98.2 F Pulse Rate 80 74 Respiratory Rate 16 Blood Pressure 175/68 H Pulse Oximetry 94 Oxygen Delivery Room Air 10/07/24 20:00 10/07/24 20:06 10/07/24 21:26 Temperature 97.6 F Pulse Rate 80 66 Respiratory Rate 16 Blood Pressure 167/67 H Pulse Oximetry 98 Oxygen Delivery Room Air 10/08/24 06:55 Temperature 97.7 F Pulse Rate 81 Respiratory Rate 16 Blood Pressure 176/81 H Pulse Oximetry 99 Oxygen Delivery Intake/Output Intake/Output: Intake & Output 10/05/24 10/06/24 10/07/24 10/08/24 23:59 23:59 23:59 23:59 Intake Total 1235 1415 1430 240 Output Total 2550 1850 2700 8181 Balance -9864 -787 -8080 -5580 Meds/Results Medications: Active Medications Generic Name Dose Route Start Last Admin Trade Name Freq PRN Reason Stop Dose Admin Acetaminophen 650 mg 09/19/24 09:14 Acetaminophen 650 Mg Suppository RECTAL Q6H PRN Mild Pain (1-3) or Fever Acetaminophen 650 mg 09/19/24 10:07 10/07/24 04:40 Acetaminophen 325 Mg Tablet PO 650 mg Q6H PRN Administration Mild Pain (1-3) or Fever Amlodipine Besylate 10 mg 09/16/24 09:00 10/07/24 10:27 Amlodipine Besylate 10 Mg Tablet PO 10 mg DAILY KELIN Administration Artificial Tears 1 drop 09/15/24 23:37 Artificial Tears Ophth Soln 15 Ml Bottle EACH EYE QID PRN Dry Eye(S) Atorvastatin Calcium 10 mg 09/16/24 00:25 10/07/24 20:06 Atorvastatin 10 Mg Tablet PO 10 mg HS KELIN Administration Baclofen 5 mg 09/26/24 17:00 10/07/24 18:38 Baclofen 5 Mg Tablet PO 5 mg BID KELIN Administration Dextrose 12.5 gm 09/15/24 12:45 Dextrose 50% 25 Gm/50 Ml Syringe IV PUSH PRN PRN Hypoglycemia Protocol Diclofenac Sodium 1 applic 09/15/24 23:37 Diclofenac Sodium 1% 100 Gm Gel (*Bkc) TOPICAL BID PRN moderate pain (scale score 5-6) Fluticasone Propionate 2 spray 09/22/24 16:37 Fluticasone Propionate 0.05% Na Spr 16 Gm Btl (*Bkc) NASAL DAILY PRN Nasal Congestion Furosemide 10 mg 10/07/24 17:00 10/07/24 18:38 Furosemide 10 Mg Tablet PO 10 mg BID KELIN Administration Glucagon 1 mg 09/15/24 12:45 Glucagon For Inj 1 Mg Vial IM PRN PRN Hypoglycemia Protocol Glucose 15 gm 09/15/24 12:45 Glucose Oral Gel 15 Gm Of Glucse In 37.5 Gm Tube PO PRN PRN Hypoglycemia Protocol Guaifenesin 1,200 mg 09/16/24 09:00 10/07/24 18:37 Guaifenesin 12 Hr 600 Mg Tabcr PO 1,200 mg BID KELIN Administration Hydralazine HCl 10 mg 10/02/24 08:51 10/04/24 21:42 Hydralazine Hcl 20 Mg/Ml Vial IV PUSH 10 mg Q4H PRN Administration Blood Pressure - High Dextrose 1,000 mls @ 100 mls/hr 09/15/24 12:45 Dextrose 5% 1,000 Ml IVPB PRN PRN Hypoglycemia Protocol Sodium Chloride 340 mls @ 85 mls/hr 10/08/24 08:50 Sodium Chloride 3% IV CONT 10/08/24 12:49 .Q4H KELIN Irbesartan 150 mg 10/08/24 09:00 Irbesartan 150 Mg Tablet PO QAM KELIN Isosorbide Mononitrate 30 mg 09/16/24 09:00 10/07/24 10:27 Isosorbide Mononitrate 30 Mg Tab.Er.24h PO 30 mg DAILY KELIN Administration Lactulose 20 gm 10/06/24 16:10 Lactulose 20 Gm/30 Ml Udc PO DAILY PRN Constipation Levalbuterol HCl 1.25 mg 09/22/24 08:41 Levalbuterol Neb 1.25 Mg/3 Ml INHALATION Q6HRT PRN Shortness Of Breath Lidocaine 2 patch 09/16/24 09:00 10/07/24 10:30 Lidocaine 5% Patch TOPICAL 2 patch DAILY KELIN Administration Lorazepam 0.5 mg 10/02/24 12:05 10/04/24 21:45 Lorazepam (*Crx) 0.5 Mg Tablet PO 0.5 mg Q8H PRN Administration Anxiety Memantine 5 mg 09/16/24 00:25 10/07/24 20:05 Memantine 5 Mg Tablet PO 5 mg Q12HR KELIN Administration Miscellaneous Information 1 each 10/04/24 00:01 Pregabalin Needs To Be Renewed Or It Will Automatically Discontinue. XX 11/03/24 00:00 CLARIFY KELIN Nebivolol 10 mg 10/08/24 09:00 Nebivolol Hcl 5 Mg Tablet PO DAILY [facility] Ondansetron HCl 4 mg 09/15/24 12:45 Ondansetron Inj 4 Mg/2 Ml Vial IV PUSH Q4H PRN Nausea Oxycodone/Acetaminophen 1 tablet 10/03/24 15:56 10/08/24 04:20 Oxycodone/Acetaminophen (*Crx) 5-325 Mg Tablet PO 1 tablet Q4H PRN Administration Pain Rated 7-10 Pantoprazole Sodium 40 mg 09/16/24 09:00 10/07/24 10:26 Pantoprazole 40 Mg Tablet PO 40 mg DAILY KELIN Administration Polyethylene Glycol 17 gm 09/15/24 23:37 Polyethylene Glycol 3350 17 Gm Powd.Pack PO DAILY PRN Constipation Potassium Chloride 10 meq 09/16/24 09:00 10/07/24 10:25 Potassium Chloride 10 Meq Er Tablet PO 10 meq DAILY KELIN Administration Primidone 100 mg 09/22/24 09:00 10/07/24 18:37 Primidone 50 Mg Tablet PO 100 mg TID KELIN Administration Rivaroxaban 20 mg 09/23/24 17:00 09/28/24 17:16 Rivaroxaban 20 Mg Tablet PO 20 mg DAILY@1700 KELIN Administration Senna 8.6 mg 10/06/24 16:10 10/07/24 10:27 Sennosides 8.6 Mg Tablet PO 8.6 mg DAILY KELIN Administration Senna/Docusate Sodium 2 tab 10/07/24 09:00 10/07/24 18:38 Senna/Docusate Sodium Tablet PO 2 tab BID KELIN Administration Sodium Chloride 2 spray 09/15/24 23:37 Saline 0.65% Gordo Soln 44 Ml Btl NASAL PRN PRN Congestion Sodium Chloride 1,000 mg 10/03/24 11:00 10/07/24 18:37 Sodium Chloride 500 Mg Tablet PO 1,000 mg TID KELIN Administration Vitamin B Complex 1 cap 09/16/24 09:00 10/07/24 10:27 Vitamin B Complex Capsule PO 1 cap QAM KELIN Administration Vitamin D 5,000 units 09/16/24 09:00 10/07/24 10:26 Cholecalciferol 5,000 Units Tablet PO 5,000 units DAILY KELIN Administration Vitamin E 800 unit 09/16/24 09:00 10/07/24 10:25 Vitamin E 400 Unit Capsule PO 800 unit DAILY KELIN Administration Zolpidem Tartrate 2.5 mg 10/06/24 21:00 10/07/24 20:06 Zolpidem Tartrate (*Crx) 2.5 Mg Tablet PO 2.5 mg HS KELIN Administration Radiology Results: ITS Impressions Head CT 09/15/24 11:48 IMPRESSION: 1. 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 No acute intracranial process. 2. Age-related changes including moderate diffuse on loss and mild scattered white matter hypoattenuation consistent with chronic small vessel ischemic disease. Brain MRI 09/18/24 08:50 IMPRESSION: 1. Age-related changes in the brain. No acute intracranial process. 2. 1.3 x 1.2 x 0.9 cm T2 hyperintense intrasellar mass versus cystic lesion. 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 There is been no evident change in appearance of the pituitary on multiple prior CT studies dating back to thousand 17 which would argue against malignancy/metastases. Would recommend obtaining pre and postcontrast pituitary protocol MRI to distinguish solid versus cystic which would aid in narrowing the differential. Sella Turcica MRI 09/19/24 12:56 IMPRESSION: 1. 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 2. 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 Lumbar Puncture Fluoroscopy 09/19/24 14:00 IMPRESSION: 1. Successful fluoro-guided lumbar puncture. Chest X-Ray 09/24/24 07:39 Impression: Central pulmonary venous congestive change. Labs Labs: Laboratory Results - last 24 hr 10/06/24 10/07/24 10/07/24 04:45 11:09 11:14 WBC 8.0 RBC 3.96 L Hgb 12.4 Hct 34.3 L MCV 86.6 MCH 31.3 MCHC 36.2 H RDW 14.6 H Plt Count 229 MPV 9.4 Immature Gran % (Auto) 1.0 H Neut % (Auto) 54.4 Lymph % (Auto) 28.1 Gates % (Auto) 11.9 H Eos % (Auto) 4.1 Baso % (Auto) 0.5 Lymph # (Auto) 2.24 Gates # (Auto) 1.0 H Eos # (Auto) 0.3 Baso # (Auto) 0.0 Abs Immat Gran (auto) 0.08 H Absolute Neuts (auto) 4.3 Absolute Nucleated RBC 0.000 Nucleated RBC % 0.0 Sodium 113 L* Potassium 4.5 Chloride 80 L Carbon Dioxide 22 Anion Gap 11 BUN 11 Creatinine 0.48 L Estim Creat Clear Calc 93 Estimated GFR > 60 Glucose 126 H Calcium 8.3 L Magnesium 1.3 L Total Protein 5.4 L TSH (Reflex) 0.418 L Free T4 0.69 L Random Cortisol 7.77 U Random Total Protein Ur Random Sodium Urine Creatinine Protein/Creat Ratio 2 10/07/24 10/07/24 10/08/24 19:52 20:19 08:40 WBC 8.6 RBC 3.77 L Hgb 11.6 L Hct 32.6 L MCV 86.5 MCH 30.8 MCHC 35.6 RDW 14.7 H Plt Count 201 MPV 9.7 Immature Gran % (Auto) 0.9 H Neut % (Auto) 51.0 Lymph % (Auto) 28.9 Gates % (Auto) 12.2 H Eos % (Auto) 6.5 H Baso % (Auto) 0.5 Lymph # (Auto) 2.48 Gates # (Auto) 1.1 H Eos # (Auto) 0.6 H Baso # (Auto) 0.0 Abs Immat Gran (auto) 0.08 H Absolute Neuts (auto) 4.4 Absolute Nucleated RBC 0.000 Nucleated RBC % 0.0 Sodium 114 L* Potassium Chloride Carbon Dioxide Anion Gap BUN Creatinine Estim Creat Clear Calc Estimated GFR Glucose Calcium Magnesium Total Protein TSH (Reflex) Free T4 Random Cortisol U Random Total Protein 13 Ur Random Sodium 104 Urine Creatinine 4.7 Protein/Creat Ratio 2 2.77 H
[2024-10-08] MEDS: COSYNTROPIN 0.25 MG/ML VIAL IV PUSH (09:02)
[2024-10-08] MEDS: VITAMIN E 400 UNIT CAPSULE 800 UNIT PO (09:14)
[2024-10-08] MEDS: CHOLECALCIFEROL 5,000 UNITS TABLET 5000 UNITS PO (09:14)
[2024-10-08] MEDS: guaiFENesin 12 HR 600 MG TABCR 1200 MG PO ×2 (09:14→16:24)
[2024-10-08] MEDS: MEMANTINE 5 MG TABLET PO ×2 (09:14→20:52)
[2024-10-08] MEDS: PRIMIDONE 50 MG TABLET 100 MG PO ×3 (09:14→16:23)
[2024-10-08] MEDS: IRBESARTAN 150 MG TABLET PO (09:15)
[2024-10-08] MEDS: ISOSORBIDE MONONITRATE 30 MG TAB.ER.24H PO (09:15)
[2024-10-08] MEDS: VITAMIN B COMPLEX CAPSULE 1 CAP PO (09:15)
[2024-10-08] MEDS: POTASSIUM CHLORIDE 10 MEQ ER TABLET PO (09:15)
[2024-10-08] MEDS: amLODIPine BESYLATE 10 MG TABLET PO (09:15)
[2024-10-08] MEDS: PANTOPRAZOLE 40 MG TABLET PO (09:15)
[2024-10-08] MEDS: FUROSEMIDE 10 MG TABLET PO ×2 (09:15→16:24)
[2024-10-08] MEDS: SENNA/DOCUSATE SODIUM TABLET 2 TAB PO ×2 (09:15→16:23)
[2024-10-08] MEDS: SENNOSIDES 8.6 MG TABLET PO (09:15)
[2024-10-08] MEDS: BACLOFEN 5 MG TABLET PO ×2 (09:15→16:23)
[2024-10-08] MEDS: SODIUM CHLORIDE 500 MG TABLET 1000 MG PO ×3 (09:16→16:24)
[2024-10-08] MEDS: NEBIVOLOL HCL 5 MG TABLET 10 MG PO (09:19)
[2024-10-08 09:21] LABS: Anion Gap 7 mmol/L (4-12); Blood Urea Nitrogen 10 mg/dL (7-17); Calcium 8.1 mg/dL (8.4-10.2); Carbon Dioxide 22 mmol/L (22-30); Chloride 86 mmol/L (98-107); Estimated CRCL calculation 125 ml/min; Estimated Glomerular Filt Rate > 60; Glucose 86 mg/dL (65-110); Magnesium 1.3 mg/dL (1.6-2.3); Sodium 115 mmol/L (137-145)
[2024-10-08] MEDS: SODIUM CHLORIDE 3% 85 ML IV CONT (09:40)
[2024-10-08 09:46] LABS: Cortisol Baseline 7.01 ug/dL
--- NOTE | 2024-10-08 10:10 | P.PNNP_ITS ---
Progress Note: A&P Assessment and Plan (1) Hyponatremia: Code(s): E87.1 - Hypo-osmolality and hyponatremia Status: Acute Assessment and Plan: the patient has chronic hyponatremia. This is likely due to multiple issues and occluding pulmonary disease, proton pump inhibitor, poor osmolar intake with more generous fluid intake and in the past narcotics and a new development with the multiple cerebellar strokes.. Her baseline sodium seems to run in the high 120s and the low 130s. urine sodium is 104 Serum protein electrophoresis, urine and serum osmolality is are all pending. TSH is a little bit on the low side. Will check a T4 cortisol level is a little bit low. Will check a Cortrosyn stim test the patient is on pantoprazole but not on antidepressants, narcotics, or diuretics. patient has no history of cancer chest x-ray has no mass MRI of the brain does show some Mass versus cystic lesion. I am not sure if this might contribute to the low sodium. 10/02 Na 131 on salt tabs 10/03 Na 125 10/07 Na 113 still on salt tabs. placed on fluid restriction and furosemide 10/08 Na 115 will give 3% saline to bring sodium up a little . continue other measures. (2) AMS (altered mental status): Code(s): R41.82 - Altered mental status, unspecified Status: Acute Assessment and Plan: This seems at baseline right now (3) Dysphagia: Qualifiers: Dysphagia type: esophageal phase Qualified Code(s): R13.19 - Other dysphagia Code(s): R13.10 - Dysphagia, unspecified Status: Acute Assessment and Plan: patient is getting speech therapy (4) Obstructive sleep apnea: Code(s): G47.33 - Obstructive sleep apnea (adult) (pediatric) Status: Acute Assessment and Plan: the patient does not tolerate a CPAP (5) HTN (hypertension): Qualifiers: Hypertension type: essential hypertension Qualified Code(s): I10 - Essential (primary) hypertension Code(s): I10 - Essential (primary) hypertension Status: Chronic Assessment and Plan: her blood pressure is high. She is on amlodipine, losartan, and p.r.n. hydralazine. Will change amlodipine to nifedipine (6) HLD (hyperlipidemia): Qualifiers: Hyperlipidemia type: unspecified Qualified Code(s): E78.5 - Hyperlipidemia, unspecified Code(s): E78.5 - Hyperlipidemia, unspecified Status: Chronic Assessment and Plan: the patient is on atorvastatin (7) CVA (cerebral vascular accident): Code(s): I63.9 - Cerebral infarction, unspecified Status: Acute Assessment and Plan: neurology is seeing the patient Patient also has a parasellar mass. Subjective Date/time seen: 10/08/24 10:10 Interval history: patient is resting comfortably in bed. Review of Systems Cardiovascular: Cardiovascular: Reports no additional cardiovascular complaints Respiratory: Respiratory: Reports no additional respiratory complaints Gastrointestinal: Gastrointestinal: Reports no additional gastrointestinal complaints Genitourinary: Genitourinary: Reports no additional female genitourinary complaints Exam Narrative: WDWN Female in NAD skin no rash head ncat lungs clear cor reg no rub or gallop abd BS+ nontender and soft ext no edema. Objective Data Vital Signs Vital Signs: Vital Signs - 24 hr 10/07/24 10:20 10/07/24 10:22 10/07/24 15:53 Temperature 98.2 F Pulse Rate 80 74 Respiratory Rate 16 Blood Pressure 175/68 H Pulse Oximetry 94 Oxygen Delivery Room Air 10/07/24 20:00 10/07/24 20:06 10/07/24 21:26 Temperature 97.6 F Pulse Rate 80 66 Respiratory Rate 16 Blood Pressure 167/67 H Pulse Oximetry 98 Oxygen Delivery Room Air 10/08/24 06:55 10/08/24 09:12 10/08/24 09:19 Temperature 97.7 F 97.5 F L Pulse Rate 81 87 87 Respiratory Rate 16 16 Blood Pressure 176/81 H 187/75 H Pulse Oximetry 99 95 Oxygen Delivery Intake/Output Intake/Output: Intake & Output 10/05/24 10/06/24 10/07/24 10/08/24 23:59 23:59 23:59 23:59 Intake Total 1235 1415 1430 480 Output Total 0900 2750 6780 1800 Balance -1267 -916 -8201 -1320 Meds/Results Medications: Active Medications Generic Name Dose Route Start Last Admin Trade Name Freq PRN Reason Stop Dose Admin Acetaminophen 650 mg 09/19/24 09:14 Acetaminophen 650 Mg Suppository RECTAL Q6H PRN Mild Pain (1-3) or Fever Acetaminophen 650 mg 09/19/24 10:07 10/07/24 04:40 Acetaminophen 325 Mg Tablet PO 650 mg Q6H PRN Administration Mild Pain (1-3) or Fever Amlodipine Besylate 10 mg 09/16/24 09:00 10/08/24 09:15 Amlodipine Besylate 10 Mg Tablet PO 10 mg DAILY KELIN Administration Artificial Tears 1 drop 09/15/24 23:37 Artificial Tears Ophth Soln 15 Ml Bottle EACH EYE QID PRN Dry Eye(S) Atorvastatin Calcium 10 mg 09/16/24 00:25 10/07/24 20:06 Atorvastatin 10 Mg Tablet PO 10 mg HS KELIN Administration Baclofen 5 mg 09/26/24 17:00 10/08/24 09:15 Baclofen 5 Mg Tablet PO 5 mg BID KELIN Administration Dextrose 12.5 gm 09/15/24 12:45 Dextrose 50% 25 Gm/50 Ml Syringe IV PUSH PRN PRN Hypoglycemia Protocol Diclofenac Sodium 1 applic 09/15/24 23:37 Diclofenac Sodium 1% 100 Gm Gel (*Bkc) TOPICAL BID PRN moderate pain (scale score 5-6) Fluticasone Propionate 2 spray 09/22/24 16:37 Fluticasone Propionate 0.05% Na Spr 16 Gm Btl (*Bkc) NASAL DAILY PRN Nasal Congestion Furosemide 10 mg 10/07/24 17:00 10/08/24 09:15 Furosemide 10 Mg Tablet PO 10 mg BID KELIN Administration Glucagon 1 mg 09/15/24 12:45 Glucagon For Inj 1 Mg Vial IM PRN PRN Hypoglycemia Protocol Glucose 15 gm 09/15/24 12:45 Glucose Oral Gel 15 Gm Of Glucse In 37.5 Gm Tube PO PRN PRN Hypoglycemia Protocol Guaifenesin 1,200 mg 09/16/24 09:00 10/08/24 09:14 Guaifenesin 12 Hr 600 Mg Tabcr PO 1,200 mg BID KELIN Administration Hydralazine HCl 10 mg 10/02/24 08:51 10/04/24 21:42 Hydralazine Hcl 20 Mg/Ml Vial IV PUSH 10 mg Q4H PRN Administration Blood Pressure - High Dextrose 1,000 mls @ 100 mls/hr 09/15/24 12:45 Dextrose 5% 1,000 Ml IVPB PRN PRN Hypoglycemia Protocol Sodium Chloride 340 mls @ 85 mls/hr 10/08/24 08:50 10/08/24 09:40 Sodium Chloride 3% IV CONT 10/08/24 12:49 85 mls/hr .Q4H KELIN Administration Irbesartan 150 mg 10/08/24 09:00 10/08/24 09:15 Irbesartan 150 Mg Tablet PO 150 mg QAM KELIN Administration Isosorbide Mononitrate 30 mg 09/16/24 09:00 10/08/24 09:15 Isosorbide Mononitrate 30 Mg Tab.Er.24h PO 30 mg DAILY KELIN Administration Lactulose 20 gm 10/06/24 16:10 Lactulose 20 Gm/30 Ml Udc PO DAILY PRN Constipation Levalbuterol HCl 1.25 mg 09/22/24 08:41 Levalbuterol Neb 1.25 Mg/3 Ml INHALATION Q6HRT PRN Shortness Of Breath Lidocaine 2 patch 09/16/24 09:00 10/08/24 09:16 Lidocaine 5% Patch TOPICAL Not Given DAILY KELIN Lorazepam 0.5 mg 10/02/24 12:05 10/04/24 21:45 Lorazepam (*Crx) 0.5 Mg Tablet PO 0.5 mg Q8H PRN Administration Anxiety Memantine 5 mg 09/16/24 00:25 10/08/24 09:14 Memantine 5 Mg Tablet PO 5 mg Q12HR KELIN Administration Miscellaneous Information 1 each 10/04/24 00:01 Pregabalin Needs To Be Renewed Or It Will Automatically Discontinue. XX 11/03/24 00:00 CLARIFY KELIN Nebivolol 10 mg 10/08/24 09:00 10/08/24 09:19 Nebivolol Hcl 5 Mg Tablet PO 10 mg DAILY KELIN Administration Ondansetron HCl 4 mg 09/15/24 12:45 Ondansetron Inj 4 Mg/2 Ml Vial IV PUSH Q4H PRN Nausea Oxycodone/Acetaminophen 1 tablet 10/03/24 15:56 10/08/24 04:20 Oxycodone/Acetaminophen (*Crx) 5-325 Mg Tablet PO 1 tablet Q4H PRN Administration Pain Rated 7-10 Pantoprazole Sodium 40 mg 09/16/24 09:00 10/08/24 09:15 Pantoprazole 40 Mg Tablet PO 40 mg DAILY KELIN Administration Polyethylene Glycol 17 gm 09/15/24 23:37 Polyethylene Glycol 3350 17 Gm Powd.Pack PO DAILY PRN Constipation Potassium Chloride 10 meq 09/16/24 09:00 10/08/24 09:15 Potassium Chloride 10 Meq Er Tablet PO 10 meq DAILY KELIN Administration Primidone 100 mg 09/22/24 09:00 10/08/24 09:14 Primidone 50 Mg Tablet PO 100 mg TID KELIN Administration Rivaroxaban 20 mg 09/23/24 17:00 09/28/24 17:16 Rivaroxaban 20 Mg Tablet PO 20 mg DAILY@1700 KELIN Administration Senna 8.6 mg 10/06/24 16:10 10/08/24 09:15 Sennosides 8.6 Mg Tablet PO 8.6 mg DAILY KELIN Administration Senna/Docusate Sodium 2 tab 10/07/24 09:00 10/08/24 09:15 Senna/Docusate Sodium Tablet PO 2 tab BID KELIN Administration Sodium Chloride 2 spray 09/15/24 23:37 Saline 0.65% Gordo Soln 44 Ml Btl NASAL PRN PRN Congestion Sodium Chloride 1,000 mg 10/03/24 11:00 10/08/24 09:16 Sodium Chloride 500 Mg Tablet PO 1,000 mg TID KELIN Administration Vitamin B Complex 1 cap 09/16/24 09:00 10/08/24 09:15 Vitamin B Complex Capsule PO 1 cap QAM KELIN Administration Vitamin D 5,000 units 09/16/24 09:00 10/08/24 09:14 Cholecalciferol 5,000 Units Tablet PO 5,000 units DAILY KELIN Administration Vitamin E 800 unit 09/16/24 09:00 10/08/24 09:14 Vitamin E 400 Unit Capsule PO 800 unit DAILY KELIN Administration Zolpidem Tartrate 2.5 mg 10/06/24 21:00 10/07/24 20:06 Zolpidem Tartrate (*Crx) 2.5 Mg Tablet PO 2.5 mg HS KELIN Administration Radiology Results: ITS Impressions Head CT 09/15/24 11:48 IMPRESSION: 1. 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 No acute intracranial process. 2. Age-related changes including moderate diffuse on loss and mild scattered white matter hypoattenuation consistent with chronic small vessel ischemic disease. Brain MRI 09/18/24 08:50 IMPRESSION: 1. Age-related changes in the brain. No acute intracranial process. 2. 1.3 x 1.2 x 0.9 cm T2 hyperintense intrasellar mass versus cystic lesion. 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 There is been no evident change in appearance of the pituitary on multiple prior CT studies dating back to 19 which would argue against malignancy/metastases. Would recommend obtaining pre and postcontrast pituitary protocol MRI to distinguish solid versus cystic which would aid in narrowing the differential. Sella Turcica MRI 09/19/24 12:56 IMPRESSION: 1. 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 2. 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 Lumbar Puncture Fluoroscopy 09/19/24 14:00 IMPRESSION: 1. Successful fluoro-guided lumbar puncture. Chest X-Ray 09/24/24 07:39 Impression: Central pulmonary venous congestive change. Labs Labs: Laboratory Results - last 24 hr 10/06/24 10/07/24 10/07/24 04:45 11:09 11:14 WBC 8.0 RBC 3.96 L Hgb 12.4 Hct 34.3 L MCV 86.6 MCH 31.3 MCHC 36.2 H RDW 14.6 H Plt Count 229 MPV 9.4 Immature Gran % (Auto) 1.0 H Neut % (Auto) 54.4 Lymph % (Auto) 28.1 [place] % (Auto) 11.9 H Eos % (Auto) 4.1 Baso % (Auto) 0.5 Lymph # (Auto) 2.24 [place] # (Auto) 1.0 H Eos # (Auto) 0.3 Baso # (Auto) 0.0 Abs Immat Gran (auto) 0.08 H Absolute Neuts (auto) 4.3 Absolute Nucleated RBC 0.000 Nucleated RBC % 0.0 Sodium 113 L* Potassium 4.5 Chloride 80 L Carbon Dioxide 22 Anion Gap 11 BUN 11 Creatinine 0.48 L Estim Creat Clear Calc 93 Estimated GFR > 60 Glucose 126 H Calcium 8.3 L Magnesium 1.3 L Total Protein 5.4 L TSH (Reflex) 0.418 L Free T4 0.69 L Random Cortisol 7.77 Cortisol Baseline U Random Total Protein Ur Random Sodium Urine Creatinine Protein/Creat Ratio 2 10/07/24 10/07/24 10/08/24 19:52 20:19 08:40 WBC 8.6 RBC 3.77 L Hgb 11.6 L Hct 32.6 L MCV 86.5 MCH 30.8 MCHC 35.6 RDW 14.7 H Plt Count 201 MPV 9.7 Immature Gran % (Auto) 0.9 H Neut % (Auto) 51.0 Lymph % (Auto) 28.9 [place] % (Auto) 12.2 H Eos % (Auto) 6.5 H Baso % (Auto) 0.5 Lymph # (Auto) 2.48 [place] # (Auto) 1.1 H Eos # (Auto) 0.6 H Baso # (Auto) 0.0 Abs Immat Gran (auto) 0.08 H Absolute Neuts (auto) 4.4 Absolute Nucleated RBC 0.000 Nucleated RBC % 0.0 Sodium 114 L* 115 L* Potassium 4.0 Chloride 86 L Carbon Dioxide 22 Anion Gap 7 BUN 10 Creatinine 0.34 L Estim Creat Clear Calc 125 Estimated GFR > 60 Glucose 86 Calcium 8.1 L Magnesium 1.3 L Total Protein TSH (Reflex) Free T4 Random Cortisol Cortisol Baseline 7.01 U Random Total Protein 13 Ur Random Sodium 104 Urine Creatinine 4.7 Protein/Creat Ratio 2 2.77 H
[2024-10-08 15:39] LABS: Sodium 120 mmol/L (137-145)
[2024-10-08] MEDS: FAMOTIDINE 20 MG TABLET PO (20:52)
[2024-10-08] MEDS: ATORVASTATIN 10 MG TABLET PO (20:52)
[2024-10-08] MEDS: ZOLPIDEM TARTRATE (*CRX) 2.5 MG TABLET PO (20:52)
[2024-10-08] MEDS: ACETAMINOPHEN 325 MG TABLET 650 MG PO (20:52)
[2024-10-08 20:55] LABS: Sodium 120 mmol/L (137-145)
[2024-10-09] VITALS (7 sets, daily range): BP systolic 142–166; BP diastolic 55–66; PULSE 68–102; RESP 14–20; TEMP 36.2–37.2; O2SAT 96–98
--- NOTE | 2024-10-09 07:57 | PM.PNNEP ---
Progress Note: A&P Assessment and Plan (1) Hyponatremia: Code(s): E87.1 - Hypo-osmolality and hyponatremia Status: Acute Assessment and Plan: the patient has chronic hyponatremia. This is likely due to multiple issues and occluding pulmonary disease, proton pump inhibitor intake, poor osmolar intake with more generous fluid intake and in the past narcotics and a new development with the multiple cerebellar strokes.. Her baseline sodium seems to run in the high 120s and the low 130s. urine sodium is 104 Serum protein electrophoresis, urine and serum osmolality is are all pending. TSH is a little bit on the low side. Will check a T4. This should be drawn in a few minutes. cortisol level is a little bit low. The cosyntropin test was normal. the patient was on pantoprazole but not on antidepressants, narcotics, or diuretics. patient has no history of cancer chest x-ray has no mass MRI of the brain does show some Mass versus cystic lesion. I am not sure if this might contribute to the low sodium. 3/ Na 131 on salt tabs 10/03 Na 125 3/ Na 113 still on salt tabs. placed on fluid restriction and furosemide 10/08 Na 115 given some 3% saline 10/09 Na 120 The patient is off the pantoprazole. The patient is on sodium chloride tablets and furosemide as well as fluid restriction. Will check a sodium again today at around 3 and will give more 3% saline if it is still not rising. continue other measures. (2) AMS (altered mental status): Code(s): R41.82 - Altered mental status, unspecified Status: Acute Assessment and Plan: This seems at baseline right now (3) Dysphagia: Qualifiers: Dysphagia type: esophageal phase Qualified Code(s): R13.19 - Other dysphagia Code(s): R13.10 - Dysphagia, unspecified Status: Acute Assessment and Plan: patient is getting speech therapy (4) Obstructive sleep apnea: Code(s): G47.33 - Obstructive sleep apnea (adult) (pediatric) Status: Acute Assessment and Plan: the patient does not tolerate a CPAP (5) HTN (hypertension): Qualifiers: Hypertension type: essential hypertension Qualified Code(s): I10 - Essential (primary) hypertension Code(s): I10 - Essential (primary) hypertension Status: Chronic Assessment and Plan: her blood pressure is high. She is on amlodipine, losartan, Nebivolol and p.r.n. hydralazine. Changed metoprolol to nebivolol yesterday (6) HLD (hyperlipidemia): Qualifiers: Hyperlipidemia type: unspecified Qualified Code(s): E78.5 - Hyperlipidemia, unspecified Code(s): E78.5 - Hyperlipidemia, unspecified Status: Chronic Assessment and Plan: the patient is on atorvastatin (7) CVA (cerebral vascular accident): Code(s): I63.9 - Cerebral infarction, unspecified Status: Acute Assessment and Plan: neurology is seeing the patient Patient also has a parasellar mass. Subjective Date/time seen: 10/09/24 07:57 Interval history: Patient feels about the same today. She did not sleep well so she is tired. Exam Narrative: WDWN Female in NAD skin no rash head ncat lungs clear Bilaterally cor reg no rub or gallop abd BS+ nontender and soft ext no edema or cyanosis. Objective Data Vital Signs Vital Signs: Vital Signs - 24 hr 10/08/24 09:12 10/08/24 09:14 10/08/24 09:19 Temperature 97.5 F L Pulse Rate 87 87 Respiratory Rate 16 Blood Pressure 187/75 H Pulse Oximetry 95 95 Oxygen Delivery Room Air Fraction of Inspired Oxygen 10/08/24 12:21 10/08/24 15:07 10/08/24 20:00 Temperature 97.8 F Pulse Rate 98 80 Respiratory Rate 16 16 Blood Pressure 161/73 H 153/68 H Pulse Oximetry 97 98 Oxygen Delivery Room Air Fraction of Inspired Oxygen 21 10/08/24 21:55 10/09/24 05:37 Temperature 98.6 F 98.4 F Pulse Rate 80 80 Respiratory Rate 16 16 Blood Pressure 151/65 H 150/62 H Pulse Oximetry 98 98 Oxygen Delivery Fraction of Inspired Oxygen Intake/Output Intake/Output: Intake & Output 10/06/24 10/07/24 10/08/24 10/09/24 23:59 23:59 23:59 23:59 Intake Total 1415 1430 1160 Output Total 1850 2700 3350 500 Balance -929 -1270 -2190 -500 Meds/Results Medications: Active Medications Generic Name Dose Route Start Last Admin Trade Name Freq PRN Reason Stop Dose Admin Acetaminophen 650 mg 09/19/24 09:14 Acetaminophen 650 Mg Suppository RECTAL Q6H PRN Mild Pain (1-3) or Fever Acetaminophen 650 mg 09/19/24 10:07 10/08/24 20:52 Acetaminophen 325 Mg Tablet PO 650 mg Q6H PRN Administration Mild Pain (1-3) or Fever Amlodipine Besylate 10 mg 09/16/24 09:00 10/08/24 09:15 Amlodipine Besylate 10 Mg Tablet PO 10 mg DAILY KELIN Administration Artificial Tears 1 drop 09/15/24 23:37 Artificial Tears Ophth Soln 15 Ml Bottle EACH EYE QID PRN Dry Eye(S) Atorvastatin Calcium 10 mg 09/16/24 00:25 10/08/24 20:52 Atorvastatin 10 Mg Tablet PO 10 mg HS KELIN Administration Baclofen 5 mg 09/26/24 17:00 10/08/24 16:23 Baclofen 5 Mg Tablet PO 5 mg BID KELIN Administration Dextrose 12.5 gm 09/15/24 12:45 Dextrose 50% 25 Gm/50 Ml Syringe IV PUSH PRN PRN Hypoglycemia Protocol Diclofenac Sodium 1 applic 09/15/24 23:37 Diclofenac Sodium 1% 100 Gm Gel (*Bkc) TOPICAL BID PRN moderate pain (scale score 5-6) Famotidine 20 mg 10/08/24 21:00 10/08/24 20:52 Famotidine 20 Mg Tablet PO 20 mg Q12HR KELIN Administration Fluticasone Propionate 2 spray 09/22/24 16:37 Fluticasone Propionate 0.05% Na Spr 16 Gm Btl (*Bkc) NASAL DAILY PRN Nasal Congestion Furosemide 10 mg 10/07/24 17:00 10/08/24 16:24 Furosemide 10 Mg Tablet PO 10 mg BID KELIN Administration Glucagon 1 mg 09/15/24 12:45 Glucagon For Inj 1 Mg Vial IM PRN PRN Hypoglycemia Protocol Glucose 15 gm 09/15/24 12:45 Glucose Oral Gel 15 Gm Of Glucse In 37.5 Gm Tube PO PRN PRN Hypoglycemia Protocol Guaifenesin 1,200 mg 09/16/24 09:00 10/08/24 16:24 Guaifenesin 12 Hr 600 Mg Tabcr PO 1,200 mg BID KELIN Administration Hydralazine HCl 10 mg 10/02/24 08:51 10/04/24 21:42 Hydralazine Hcl 20 Mg/Ml Vial IV PUSH 10 mg Q4H PRN Administration Blood Pressure - High Dextrose 1,000 mls @ 100 mls/hr 09/15/24 12:45 Dextrose 5% 1,000 Ml IVPB PRN PRN Hypoglycemia Protocol Irbesartan 150 mg 10/08/24 09:00 10/08/24 09:15 Irbesartan 150 Mg Tablet PO 150 mg QAM KELIN Administration Isosorbide Mononitrate 30 mg 09/16/24 09:00 10/08/24 09:15 Isosorbide Mononitrate 30 Mg Tab.Er.24h PO 30 mg DAILY KELIN Administration Lactulose 20 gm 10/06/24 16:10 Lactulose 20 Gm/30 Ml Udc PO DAILY PRN Constipation Levalbuterol HCl 1.25 mg 09/22/24 08:41 Levalbuterol Neb 1.25 Mg/3 Ml INHALATION Q6HRT PRN Shortness Of Breath Lidocaine 2 patch 09/16/24 09:00 10/08/24 09:16 Lidocaine 5% Patch TOPICAL Not Given DAILY KELIN Lorazepam 0.5 mg 10/02/24 12:05 10/04/24 21:45 Lorazepam (*Crx) 0.5 Mg Tablet PO 0.5 mg Q8H PRN Administration Anxiety Memantine 5 mg 09/16/24 00:25 10/08/24 20:52 Memantine 5 Mg Tablet PO 5 mg Q12HR KELIN Administration Miscellaneous Information 1 each 10/04/24 00:01 Pregabalin Needs To Be Renewed Or It Will Automatically Discontinue. XX 11/03/24 00:00 CLARIFY KELIN Nebivolol 10 mg 10/08/24 09:00 10/08/24 09:19 Nebivolol Hcl 5 Mg Tablet PO 10 mg DAILY KELIN Administration Ondansetron HCl 4 mg 09/15/24 12:45 Ondansetron Inj 4 Mg/2 Ml Vial IV PUSH Q4H PRN Nausea Oxycodone/Acetaminophen 1 tablet 10/03/24 15:56 10/08/24 12:44 Oxycodone/Acetaminophen (*Crx) 5-325 Mg Tablet PO 1 tablet Q4H PRN Administration Pain Rated 7-10 Polyethylene Glycol 17 gm 09/15/24 23:37 Polyethylene Glycol 3350 17 Gm Powd.Pack PO DAILY PRN Constipation Potassium Chloride 10 meq 09/16/24 09:00 10/08/24 09:15 Potassium Chloride 10 Meq Er Tablet PO 10 meq DAILY KELIN Administration Primidone 100 mg 09/22/24 09:00 10/08/24 16:23 Primidone 50 Mg Tablet PO 100 mg TID KELIN Administration Rivaroxaban 20 mg 09/23/24 17:00 09/28/24 17:16 Rivaroxaban 20 Mg Tablet PO 20 mg DAILY@1700 KELIN Administration Senna 8.6 mg 10/06/24 16:10 10/08/24 09:15 Sennosides 8.6 Mg Tablet PO 8.6 mg DAILY KELIN Administration Senna/Docusate Sodium 2 tab 10/07/24 09:00 10/08/24 16:23 Senna/Docusate Sodium Tablet PO 2 tab BID KELIN Administration Sodium Chloride 2 spray 09/15/24 23:37 Saline 0.65% [place] Soln 44 Ml Btl NASAL PRN PRN Congestion Sodium Chloride 1,000 mg 10/03/24 11:00 10/08/24 16:24 Sodium Chloride 500 Mg Tablet PO 1,000 mg TID KELIN Administration Vitamin B Complex 1 cap 09/16/24 09:00 10/08/24 09:15 Vitamin B Complex Capsule PO 1 cap QAM KELIN Administration Vitamin D 5,000 units 09/16/24 09:00 10/08/24 09:14 Cholecalciferol 5,000 Units Tablet PO 5,000 units DAILY KELIN Administration Vitamin E 800 unit 09/16/24 09:00 10/08/24 09:14 Vitamin E 400 Unit Capsule PO 800 unit DAILY KELIN Administration Zolpidem Tartrate 2.5 mg 10/06/24 21:00 10/08/24 20:52 Zolpidem Tartrate (*Crx) 2.5 Mg Tablet PO 2.5 mg HS KELIN Administration Radiology Results: ITS Impressions Head CT 09/15/24 11:48 IMPRESSION: 1. 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 No acute intracranial process. 2. Age-related changes including moderate diffuse on loss and mild scattered white matter hypoattenuation consistent with chronic small vessel ischemic disease. Brain MRI 09/18/24 08:50 IMPRESSION: 1. Age-related changes in the brain. No acute intracranial process. 2. 1.3 x 1.2 x 0.9 cm T2 hyperintense intrasellar mass versus cystic lesion. 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 There is been no evident change in appearance of the pituitary on multiple prior CT studies dating back to thousand 19 which would argue against malignancy/metastases. Would recommend obtaining pre and postcontrast pituitary protocol MRI to distinguish solid versus cystic which would aid in narrowing the differential. Sella Turcica MRI 09/19/24 12:56 IMPRESSION: 1. 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 2. 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 Lumbar Puncture Fluoroscopy 09/19/24 14:00 IMPRESSION: 1. Successful fluoro-guided lumbar puncture. Chest X-Ray 09/24/24 07:39 Impression: Central pulmonary venous congestive change. Labs Labs: Laboratory Results - last 24 hr 10/08/24 10/08/24 10/08/24 08:40 09:39 10:25 WBC 8.6 RBC 3.77 L Hgb 11.6 L Hct 32.6 L MCV 86.5 MCH 30.8 MCHC 35.6 RDW 14.7 H Plt Count 201 MPV 9.7 Immature Gran % (Auto) 0.9 H Neut % (Auto) 51.0 Lymph % (Auto) 28.9 [place] % (Auto) 12.2 H Eos % (Auto) 6.5 H Baso % (Auto) 0.5 Lymph # (Auto) 2.48 [place] # (Auto) 1.1 H Eos # (Auto) 0.6 H Baso # (Auto) 0.0 Abs Immat Gran (auto) 0.08 H Absolute Neuts (auto) 4.4 Absolute Nucleated RBC 0.000 Nucleated RBC % 0.0 Sodium 115 L* Potassium 4.0 Chloride 86 L Carbon Dioxide 22 Anion Gap 7 BUN 10 Creatinine 0.34 L Estim Creat Clear Calc 125 Estimated GFR > 60 Glucose 86 Calcium 8.1 L Magnesium 1.3 L Cortisol Baseline 7.01 Cortisol Resp 30 Min 28.00 Cortisol Resp 60 Min 33.20 10/08/24 10/08/24 15:26 20:21 WBC RBC Hgb Hct MCV MCH MCHC RDW Plt Count MPV Immature Gran % (Auto) Neut % (Auto) Lymph % (Auto) [place] % (Auto) Eos % (Auto) Baso % (Auto) Lymph # (Auto) [place] # (Auto) Eos # (Auto) Baso # (Auto) Abs Immat Gran (auto) Absolute Neuts (auto) Absolute Nucleated RBC Nucleated RBC % Sodium 120 L 120 L Potassium Chloride Carbon Dioxide Anion Gap BUN Creatinine Estim Creat Clear Calc Estimated GFR Glucose Calcium Magnesium Cortisol Baseline Cortisol Resp 30 Min Cortisol Resp 60 Min
[2024-10-09 08:27] LABS: Basophils Percent Auto 0.3 % (0.2-1.2); Eosinophils Absolute Auto 0.1 K/mm3 (0-0.3); Eosinophils Percent Auto 2.2 % (0-4.4); Hematocrit 32.7 % (37.0-47.0); Hemoglobin 11.3 g/dL (12.0-15.0); Immature Granulocyte Absolute 0.08 K/mm3 (0.00-0.031); Immature Granulocyte Percent A 1.3 % (0-0.5); Lymphocytes Absolute Auto 1.53 K/mm3 (0.9-3.2); Lymphocytes Percent Auto 24.2 % (18.3-44.2); Mean Corpuscular HGB Conc 34.6 g/dl (32-36); Mean Corpuscular Hemoglobin 30.4 pg (26-34); Mean Corpuscular Volume 87.9 fl (80-100); Mean Platelet Volume 10.1 fl (7.4-10.4); Monocytes Absolute Auto 0.7 K/mm3 (0.1-0.6); Monocytes Percent Auto 11.7 % (2.6-8.5); Neutrophils Absolute Auto 3.8 K/mm3 (1.3-6.7); Neutrophils Percent Auto 60.3 % (45.5-73.1); Platelet Count Result 224 k/mm3 (150-375); Red Blood Count 3.72 M/mm3 (4.2-5.4); Red Cell Distribution Width 15.2 % (11.5-14.5); White Blood Count 6.3 K/mm3 (4.5-10.0)
[2024-10-09 08:35] LABS: Albumin Level 3.4 g/dL (3.5-5.1); Anion Gap 6 mmol/L (4-12); Blood Urea Nitrogen 12 mg/dL (7-17); Calcium 8.6 mg/dL (8.4-10.2); Carbon Dioxide 24 mmol/L (22-30); Chloride 93 mmol/L (98-107); Estimated CRCL calculation 105 ml/min; Estimated Glomerular Filt Rate > 60; Glucose 112 mg/dL (65-110); Phosphorus 3.6 mg/dL (2.5-4.5); Potassium 4.4 mmol/L (3.4-5.0); Sodium 123 mmol/L (137-145)
[2024-10-09 08:36] LABS: Magnesium 1.6 mg/dL (1.6-2.3)
--- NOTE | 2024-10-09 08:44 | P.PNIM_ITS ---
Progress Note: A&P Assessment and Plan (1) Altered mental status: Code(s): R41.82 - Altered mental status, unspecified Status: Acute (2) Sepsis: Qualifiers: Sepsis acute organ dysfunction status: unspecified Sepsis type: methicillin resistant Staphylococcus aureus Qualified Code(s): A41.02 - Sepsis due to Methicillin resistant Staphylococcus aureus Code(s): A41.9 - Sepsis, unspecified organism Status: Acute (3) Anxiety: Code(s): F41.9 - Anxiety disorder, unspecified Status: Chronic Plan AMS (altered mental status): Code(s): R41.82 - Altered mental status, unspecified Status: Acute Assessment and Plan: Patient presents with altered mental status. She has a normal baseline AOx3 with slow speech. 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 Patient presented with fevers on 09/15. LP performed 09/19 showing no RBCs and 1 WBCs with mostly lymphocytes. Gram stain showing rare WBC and no organisms. Glucose 97 and protein 51. Viral and bacterial meningitis unlikely but she was on abx prior to LP being performed so could be partially treated meningitis. Consider AMS related to polypharmacy. Consider catatonia. Symptoms seem to wax and wane - delirium? CSF HSV PCR negative. Acyclovir stopped. CSF bacterial cultures were NOT sent to [facility] (fungal cx sent); unable to determine if partially treated meningitis but felt less likely. Stop IV abx and monitor Primidone and Baclofen were cuts back. 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 Patient has dysphagia likely resulting from previous multiple stroke I had a long and thought discussions with patient's family: patient's and daughter about prognosis and goals of care, Patient daughter down man request to start feeding tube for G-tube consult GI for tube feeding placement, plans bed tube on Wednesday. Will place NG tube for feeding today 09/30 Patient feels better today, appetite is improving, mental status improving, patient declines NG tube feeding. Waiting patient family to make decision about tube feeding 10/01 Patient is lethargic, unable to engage conversation or follow commands, patient cannot recall her conversation with the care coordinators. Patient has a multiple chronic infarct on MRI, MRI also showed moderate diffuse cerebral volume loss. Patient may have dementia related age and multiple stroke. 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 p.o. per neurologist recommendation Discontinue furosemide 20 mg b.i.d. p.o. Received IV fluid with normal saline 75 mL/hour Patient cannot tolerate diet well, Sodium dropped to 113 10/07 Appreciate printed circuit boards plasma etcher consultation. Start hypertonic saline per printed circuit boards plasma etcher Sodium is trending up 120. c/w sodium chloride tablets and furosemide as well as fluid restriction. check Na and will give more 3% saline if it is still not rising. 10/09 Dysphagia Patient does not have appetite and also had trouble with swallowing Patient ate a little today, patient cannot have enough oral intake to support life Likely secondary to dementia,, possible ischemic dementia, MRI showed multiple strokes before and also brain malacia Patient does not want NG tube feeding But patient is able to eat and drink her function seems improving. no need to provide tube feeding, if she continue to improve Started PT/OT/ST. ST recommended dropping her from Level 5 to Level 4 Pureed diet which was done. Discussed with neurology. He recommended continuing to wean primidone every 7 days. Scheduled IV Ativan for possible catatonia. Did have some improvement yesterday but worse today. ABG ordered but this was okay. back off on Ativan. Stop IV abx. Pending neurologist's follow-up consultation Insomnia Provide Ambien 2.5 mg q.h.s. Constipation Start Senokot S2 tabs b.i.d. p.o. Sepsis: Qualifiers: Sepsis acute organ dysfunction status: unspecified Sepsis type: sepsis due to unspecified organism Qualified Code(s): A41.9 - Sepsis, unspecified organism Code(s): A41.9 - Sepsis, unspecified organism Status: Acute Assessment and Plan: Noted on admission with fevers, AMS and elevated white count. UTI has been ruled out. Blood cultures negative. Chest x-ray was clear on admission and repeat CXR clear on 09/18. Requiring O2 now. Repeat CXR 09/24 showing congestive changes so Lasix IV once given with good UOP No CSF cultures sent to [facility]. Stop abx and monitor. White blood cell within normal limit, patient is afebrile, Atrial fibrillation with RVR: Code(s): I48.91 - Unspecified atrial fibrillation Status: Acute Assessment and Plan: Review of chart showing she has AFib and was on Xarelto on prior admissions. In the paper chart, the papers from the retirement sheets only had 5 of 6 sheets. Suspect the 6th sheet listed additional medications (including Xarelto). RN will call retirement to get a complete list of patient's medications. Restarted Xarelto Hypertension: Code(s): I10 - Essential (primary) hypertension Status: Acute Assessment and Plan: Patient's blood pressure was reviewed on 09/26 Blood pressure with wide fluctuations. Hydralazine held. continue to monitor for now Acute and chronic respiratory failure: Qualifiers: Respiratory failure complication: hypoxia Qualified Code(s): J96.21 - Acute and chronic respiratory failure with hypoxia Code(s): J96.20 - Acute and chronic respiratory failure, unspecified whether with hypoxia or hypercapnia Status: Acute Assessment and Plan: ABG in ER - pH of 7.46, pCO2 33.0, PO2 67.4, bicarb 23.0, O2 94.6%. Patient presumably wears oxygen at the facility but has been weaned to room air here Continue CPAP at night and with naps as she allows. Obstructive sleep apnea: Code(s): G47.33 - Obstructive sleep apnea (adult) (pediatric) Status: Acute Assessment and Plan: Continue CPAP at night and with naps as she allows. UTI (urinary tract infection): Qualifiers: Hematuria presence: without hematuria Urinary tract infection type: acute cystitis Qualified Code(s): N30.00 - Acute cystitis without hematuria Code(s): N39.0 - Urinary tract infection, site not specified Status: Resolved Assessment and Plan: UA is consistent with UTI. UCx collected. 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 Abx started. BCx and UCx negative. UTI ruled out. She is having urine retention and unable to tolerate the Delarosa removed 09/25/24. Plan for discharge with Delarosa Tachycardia: Code(s): R00.0 - Tachycardia, unspecified Status: Resolved Assessment and Plan: Probably related to above. Heart rate better controlled. No alarms by tele so tele stopped. I discussed case with Dr. Moran on the phone, he also considers the patient has severe dementia. Patient prognosis is poor, I have tried to reach to patient's family and left message to patient's Obed. we needed discussed with patient family above patient goal of care Patient condition deteriorates, patient could not have enough oral intake to support life the estimated recent delayed discharge from hospital We have several discussion with patient's family and patient about tube feeding to support life, patient does not want to feeding, but patient family requests to provide tube feeding to support the left. had meeting with the patient's family in presents of date night caregiver to discuss about the goal of care on phone and in patient's room . we had long discussion about patient condition and prognosis. we are waiting for patient family's decisions to provide care and support for the patient and her family accordingly 10/05 pt will be discharged back to SNF per discussion patient's daughter and date night caregiver. Patient can be transferred to home from retirement by her daughter once patient's daughter moves back home from [place] Patient has a prolonged hospitalization because the patient requires continued hospitalization for treatment of severe hyponatremia, altered mental status due to multiple comorbidities and acute issues, and also patient has poor intake due to chronic and acute illness Subjective Date/time seen: 10/09/24 08:44 Interval history: I saw examined the patient today. Patient is alert, able to follow commands, patient feels generally weak, patient does not have appetite. Patient ate and drink a little in the morning. Patient is afebrile blood pressure stable Labs reviewed, sodium is trending up Exam Narrative: GENERAL: Lethargic, ill-appearing in no acute distress. Well-nourished. - EYES: EOMI. Anicteric. - HENT: Dry mucous membranes. - LUNGS: Clear to auscultation bilateral ly, no wheezing, rhonchi, or rales. - CARDIOVASCULAR: Regular rate and rhyth m. No murmur. No JVD. - ABDOMEN: Soft, non-tender and non-dist ended. No palpable masses. - EXTREMITIES: 1+ edema lower extremity edema. Peripheral pulses 2+. Non- tender. - NEUROLOGIC: Patient is unable to foll ow commands, unable to evaluate. General weakness - PSYCHIATRIC: Alert and oriented x to place and person - SKIN: No rashes or lesions. Warm. - LYMPH: No cervical lymphadenopathy. Objective Data Vital Signs Vital Signs: Vital Signs - 24 hr 10/08/24 09:12 10/08/24 09:14 10/08/24 09:19 Temperature 97.5 F L Pulse Rate 87 87 Respiratory Rate 16 Blood Pressure 187/75 H Pulse Oximetry 95 95 Oxygen Delivery Room Air Fraction of Inspired Oxygen 10/08/24 12:21 10/08/24 15:07 10/08/24 20:00 Temperature 97.8 F Pulse Rate 98 80 Respiratory Rate 16 16 Blood Pressure 161/73 H 153/68 H Pulse Oximetry 97 98 Oxygen Delivery Room Air Fraction of Inspired Oxygen 21 10/08/24 21:55 10/09/24 05:37 Temperature 98.6 F 98.4 F Pulse Rate 80 80 Respiratory Rate 16 16 Blood Pressure 151/65 H 150/62 H Pulse Oximetry 98 98 Oxygen Delivery Fraction of Inspired Oxygen Intake/Output Intake/Output: Intake & Output 10/06/24 10/07/24 10/08/24 10/09/24 23:59 23:59 23:59 23:59 Intake Total 1415 1430 1160 Output Total [address] [facility] -435 -1270 -2190 -500 Meds/Results Medications: Active Medications Generic Name Dose Route Start Last Admin Trade Name Freq PRN Reason Stop Dose Admin Acetaminophen 650 mg 09/19/24 09:14 Acetaminophen 650 Mg Suppository RECTAL Q6H PRN Mild Pain (1-3) or Fever Acetaminophen 650 mg 09/19/24 10:07 10/08/24 20:52 Acetaminophen 325 Mg Tablet PO 650 mg Q6H PRN Administration Mild Pain (1-3) or Fever Amlodipine Besylate 10 mg 09/16/24 09:00 10/08/24 09:15 Amlodipine Besylate 10 Mg Tablet PO 10 mg DAILY KELIN Administration Artificial Tears 1 drop 09/15/24 23:37 Artificial Tears Ophth Soln 15 Ml Bottle EACH EYE QID PRN Dry Eye(S) Atorvastatin Calcium 10 mg 09/16/24 00:25 10/08/24 20:52 Atorvastatin 10 Mg Tablet PO 10 mg HS KELIN Administration Baclofen 5 mg 09/26/24 17:00 10/08/24 16:23 Baclofen 5 Mg Tablet PO 5 mg BID KELIN Administration Dextrose 12.5 gm 09/15/24 12:45 Dextrose 50% 25 Gm/50 Ml Syringe IV PUSH PRN PRN Hypoglycemia Protocol Diclofenac Sodium 1 applic 09/15/24 23:37 Diclofenac Sodium 1% 100 Gm Gel (*Bkc) TOPICAL BID PRN moderate pain (scale score 5-6) Famotidine 20 mg 10/08/24 21:00 10/08/24 20:52 Famotidine 20 Mg Tablet PO 20 mg Q12HR KELIN Administration Fluticasone Propionate 2 spray 09/22/24 16:37 Fluticasone Propionate 0.05% Na Spr 16 Gm Btl (*Bkc) NASAL DAILY PRN Nasal Congestion Furosemide 10 mg 10/07/24 17:00 10/08/24 16:24 Furosemide 10 Mg Tablet PO 10 mg BID KELIN Administration Glucagon 1 mg 09/15/24 12:45 Glucagon For Inj 1 Mg Vial IM PRN PRN Hypoglycemia Protocol Glucose 15 gm 09/15/24 12:45 Glucose Oral Gel 15 Gm Of Glucse In 37.5 Gm Tube PO PRN PRN Hypoglycemia Protocol Guaifenesin 1,200 mg 09/16/24 09:00 10/08/24 16:24 Guaifenesin 12 Hr 600 Mg Tabcr PO 1,200 mg BID KELIN Administration Hydralazine HCl 10 mg 10/02/24 08:51 10/04/24 21:42 Hydralazine Hcl 20 Mg/Ml Vial IV PUSH 10 mg Q4H PRN Administration Blood Pressure - High Dextrose 1,000 mls @ 100 mls/hr 09/15/24 12:45 Dextrose 5% 1,000 Ml IVPB PRN PRN Hypoglycemia Protocol Irbesartan 150 mg 10/08/24 09:00 10/08/24 09:15 Irbesartan 150 Mg Tablet PO 150 mg QAM KELIN Administration Isosorbide Mononitrate 30 mg 09/16/24 09:00 10/08/24 09:15 Isosorbide Mononitrate 30 Mg Tab.Er.24h PO 30 mg DAILY KELIN Administration Lactulose 20 gm 10/06/24 16:10 Lactulose 20 Gm/30 Ml Udc PO DAILY PRN Constipation Levalbuterol HCl 1.25 mg 09/22/24 08:41 Levalbuterol Neb 1.25 Mg/3 Ml INHALATION Q6HRT PRN Shortness Of Breath Lidocaine 2 patch 09/16/24 09:00 10/08/24 09:16 Lidocaine 5% Patch TOPICAL Not Given DAILY KELIN Lorazepam 0.5 mg 10/02/24 12:05 10/04/24 21:45 Lorazepam (*Crx) 0.5 Mg Tablet PO 0.5 mg Q8H PRN Administration Anxiety Memantine 5 mg 09/16/24 00:25 10/08/24 20:52 Memantine 5 Mg Tablet PO 5 mg Q12HR KELIN Administration Miscellaneous Information 1 each 10/04/24 00:01 Pregabalin Needs To Be Renewed Or It Will Automatically Discontinue. XX 11/03/24 00:00 CLARIFY KELIN Nebivolol 10 mg 10/08/24 09:00 10/08/24 09:19 Nebivolol Hcl 5 Mg Tablet PO 10 mg DAILY KELIN Administration Ondansetron HCl 4 mg 09/15/24 12:45 Ondansetron Inj 4 Mg/2 Ml Vial IV PUSH Q4H PRN Nausea Oxycodone/Acetaminophen 1 tablet 10/03/24 15:56 10/08/24 12:44 Oxycodone/Acetaminophen (*Crx) 5-325 Mg Tablet PO 1 tablet Q4H PRN Administration Pain Rated 7-10 Polyethylene Glycol 17 gm 09/15/24 23:37 Polyethylene Glycol 3350 17 Gm Powd.Pack PO DAILY PRN Constipation Potassium Chloride 10 meq 09/16/24 09:00 10/08/24 09:15 Potassium Chloride 10 Meq Er Tablet PO 10 meq DAILY KELIN Administration Primidone 100 mg 09/22/24 09:00 10/08/24 16:23 Primidone 50 Mg Tablet PO 100 mg TID KELIN Administration Rivaroxaban 20 mg 09/23/24 17:00 09/28/24 17:16 Rivaroxaban 20 Mg Tablet PO 20 mg DAILY@1700 KELIN Administration Senna 8.6 mg 10/06/24 16:10 10/08/24 09:15 Sennosides 8.6 Mg Tablet PO 8.6 mg DAILY KELIN Administration Senna/Docusate Sodium 2 tab 10/07/24 09:00 10/08/24 16:23 Senna/Docusate Sodium Tablet PO 2 tab BID KELIN Administration Sodium Chloride 2 spray 09/15/24 23:37 Saline 0.65% Gordo Soln 44 Ml Btl NASAL PRN PRN Congestion Sodium Chloride 1,000 mg 10/03/24 11:00 10/08/24 16:24 Sodium Chloride 500 Mg Tablet PO 1,000 mg TID KELIN Administration Vitamin B Complex 1 cap 09/16/24 09:00 10/08/24 09:15 Vitamin B Complex Capsule PO 1 cap QAM KELIN Administration Vitamin D 5,000 units 09/16/24 09:00 10/08/24 09:14 Cholecalciferol 5,000 Units Tablet PO 5,000 units DAILY KELIN Administration Vitamin E 800 unit 09/16/24 09:00 10/08/24 09:14 Vitamin E 400 Unit Capsule PO 800 unit DAILY KELIN Administration Zolpidem Tartrate 2.5 mg 10/06/24 21:00 10/08/24 20:52 Zolpidem Tartrate (*Crx) 2.5 Mg Tablet PO 2.5 mg HS KELIN Administration Radiology Results: ITS Impressions Head CT 09/15/24 11:48 IMPRESSION: 1. 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 No acute intracranial process. 2. Age-related changes including moderate diffuse on loss and mild scattered white matter hypoattenuation consistent with chronic small vessel ischemic disease. Brain MRI 09/18/24 08:50 IMPRESSION: 1. Age-related changes in the brain. No acute intracranial process. 2. 1.3 x 1.2 x 0.9 cm T2 hyperintense intrasellar mass versus cystic lesion. 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 There is been no evident change in appearance of the pituitary on multiple prior CT studies dating back to thousand 17 which would argue against malignancy/metastases. Would recommend obtaining pre and postcontrast pituitary protocol MRI to distinguish solid versus cystic which would aid in narrowing the differential. Sella Turcica MRI 09/19/24 12:56 IMPRESSION: 1. 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 2. 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 Lumbar Puncture Fluoroscopy 09/19/24 14:00 IMPRESSION: 1. Successful fluoro-guided lumbar puncture. Chest X-Ray 09/24/24 07:39 Impression: Central pulmonary venous congestive change. Labs Labs: Laboratory Results - last 24 hr 10/08/24 10/08/24 10/08/24 08:40 09:39 10:25 WBC 8.6 RBC 3.77 L Hgb 11.6 L Hct 32.6 L MCV 86.5 MCH 30.8 MCHC 35.6 RDW 14.7 H Plt Count 201 MPV 9.7 Immature Gran % (Auto) 0.9 H Neut % (Auto) 51.0 Lymph % (Auto) 28.9 Routt % (Auto) 12.2 H Eos % (Auto) 6.5 H Baso % (Auto) 0.5 Lymph # (Auto) 2.48 Routt # (Auto) 1.1 H Eos # (Auto) 0.6 H Baso # (Auto) 0.0 Abs Immat Gran (auto) 0.08 H Absolute Neuts (auto) 4.4 Absolute Nucleated RBC 0.000 Nucleated RBC % 0.0 Sodium 115 L* Potassium 4.0 Chloride 86 L Carbon Dioxide 22 Anion Gap 7 BUN 10 Creatinine 0.34 L Estim Creat Clear Calc 125 Estimated GFR > 60 Glucose 86 Calcium 8.1 L Phosphorus Magnesium 1.3 L Albumin Cortisol Baseline 7.01 Cortisol Resp 30 Min 28.00 Cortisol Resp 60 Min 33.20 10/08/24 10/08/24 10/09/24 15:26 20:21 08:12 WBC 6.3 RBC 3.72 L Hgb 11.3 L Hct 32.7 L MCV 87.9 MCH 30.4 MCHC 34.6 RDW 15.2 H Plt Count 224 MPV 10.1 Immature Gran % (Auto) 1.3 H Neut % (Auto) 60.3 Lymph % (Auto) 24.2 Routt % (Auto) 11.7 H Eos % (Auto) 2.2 Baso % (Auto) 0.3 Lymph # (Auto) 1.53 Routt # (Auto) 0.7 H Eos # (Auto) 0.1 Baso # (Auto) 0.0 Abs Immat Gran (auto) 0.08 H Absolute Neuts (auto) 3.8 Absolute Nucleated RBC 0.000 Nucleated RBC % 0.0 Sodium 120 L 120 L Cancelled Potassium Chloride Carbon Dioxide Anion Gap BUN Creatinine Estim Creat Clear Calc Estimated GFR Glucose Calcium Phosphorus Magnesium Albumin Cortisol Baseline Cortisol Resp 30 Min Cortisol Resp 60 Min 10/09/24 10/09/24 10/09/24 08:12 08:12 08:12 WBC RBC Hgb Hct MCV MCH MCHC RDW Plt Count MPV Immature Gran % (Auto) Neut % (Auto) Lymph % (Auto) Routt % (Auto) Eos % (Auto) Baso % (Auto) Lymph # (Auto) Routt # (Auto) Eos # (Auto) Baso # (Auto) Abs Immat Gran (auto) Absolute Neuts (auto) Absolute Nucleated RBC Nucleated RBC % Sodium 123 L Potassium Cancelled 4.4 Chloride Cancelled 93 L Carbon Dioxide Cancelled Anion Gap BUN Creatinine Estim Creat Clear Calc Estimated GFR Glucose Calcium Phosphorus Magnesium Albumin Cortisol Baseline Cortisol Resp 30 Min Cortisol Resp 60 Min 10/09/24 10/09/24 10/09/24 08:12 08:12 08:12 WBC RBC Hgb Hct MCV MCH MCHC RDW Plt Count MPV Immature Gran % (Auto) Neut % (Auto) Lymph % (Auto) Routt % (Auto) Eos % (Auto) Baso % (Auto) Lymph # (Auto) Routt # (Auto) Eos # (Auto) Baso # (Auto) Abs Immat Gran (auto) Absolute Neuts (auto) Absolute Nucleated RBC Nucleated RBC % Sodium Potassium Chloride Carbon Dioxide 24 Anion Gap Cancelled 6 BUN Cancelled 12 Creatinine Cancelled Estim Creat Clear Calc Estimated GFR Glucose Calcium Phosphorus Magnesium Albumin Cortisol Baseline Cortisol Resp 30 Min Cortisol Resp 60 Min 10/09/24 10/09/24 10/09/24 08:12 08:12 08:12 WBC RBC Hgb Hct MCV MCH MCHC RDW Plt Count MPV Immature Gran % (Auto) Neut % (Auto) Lymph % (Auto) Routt % (Auto) Eos % (Auto) Baso % (Auto) Lymph # (Auto) Routt # (Auto) Eos # (Auto) Baso # (Auto) Abs Immat Gran (auto) Absolute Neuts (auto) Absolute Nucleated RBC Nucleated RBC % Sodium Potassium Chloride Carbon Dioxide Anion Gap BUN Creatinine 0.42 L Estim Creat Clear Calc Cancelled 105 Estimated GFR Cancelled > 60 Glucose Cancelled Calcium Phosphorus Magnesium Albumin Cortisol Baseline Cortisol Resp 30 Min Cortisol Resp 60 Min 10/09/24 10/09/24 08:12 08:12 WBC RBC Hgb Hct MCV MCH MCHC RDW Plt Count MPV Immature Gran % (Auto) Neut % (Auto) Lymph % (Auto) Routt % (Auto) Eos % (Auto) Baso % (Auto) Lymph # (Auto) Routt # (Auto) Eos # (Auto) Baso # (Auto) Abs Immat Gran (auto) Absolute Neuts (auto) Absolute Nucleated RBC Nucleated RBC % Sodium Potassium Chloride Carbon Dioxide Anion Gap BUN Creatinine Estim Creat Clear Calc Estimated GFR Glucose 112 H Calcium Cancelled 8.6 Phosphorus 3.6 Magnesium 1.6 Albumin 3.4 L Cortisol Baseline Cortisol Resp 30 Min Cortisol Resp 60 Min
[2024-10-09] MEDS: MEMANTINE 5 MG TABLET PO ×2 (09:26→21:29)
[2024-10-09] MEDS: PRIMIDONE 50 MG TABLET 100 MG PO ×3 (09:26→16:43)
[2024-10-09] MEDS: FUROSEMIDE 10 MG TABLET PO ×2 (09:26→16:43)
[2024-10-09] MEDS: amLODIPine BESYLATE 10 MG TABLET PO (09:26)
[2024-10-09] MEDS: SENNOSIDES 8.6 MG TABLET PO (09:26)
[2024-10-09] MEDS: IRBESARTAN 150 MG TABLET PO (09:26)
[2024-10-09] MEDS: VITAMIN E 400 UNIT CAPSULE 800 UNIT PO (09:26)
[2024-10-09] MEDS: FAMOTIDINE 20 MG TABLET PO ×2 (09:26→21:29)
[2024-10-09] MEDS: NEBIVOLOL HCL 5 MG TABLET 10 MG PO (09:26)
[2024-10-09] MEDS: ISOSORBIDE MONONITRATE 30 MG TAB.ER.24H PO (09:27)
[2024-10-09] MEDS: POTASSIUM CHLORIDE 10 MEQ ER TABLET PO (09:27)
[2024-10-09] MEDS: guaiFENesin 12 HR 600 MG TABCR 1200 MG PO ×2 (09:27→16:43)
[2024-10-09] MEDS: SENNA/DOCUSATE SODIUM TABLET 2 TAB PO ×2 (09:27→16:43)
[2024-10-09] MEDS: BACLOFEN 5 MG TABLET PO ×2 (09:27→16:43)
[2024-10-09] MEDS: SODIUM CHLORIDE 500 MG TABLET 1000 MG PO ×3 (09:27→16:43)
[2024-10-09] MEDS: VITAMIN B COMPLEX CAPSULE 1 CAP PO (09:27)
[2024-10-09] MEDS: CHOLECALCIFEROL 5,000 UNITS TABLET 5000 UNITS PO (09:27)
--- NOTE | 2024-10-09 09:33 | PCNFU ---
Nutrition Follow-Up Complete: Severe protein calorie malnutrition related to acute loss of appetite, as evidenced by intakes <50% needs >5 days; weight loss -7%/2 weeks. Improve PO intake to at least 50% meals and supplements - Not meeting goal consistently. Goal: Pt current nutrition is Heart healthy diet, minced % moist level 5, 1200 ml/d fluid restriction. Nutrition recommendation: No new recommendations. Continue diet and supplements Last recorded weight is 86.5 kg. Bowel Motility: Last BM recorded 10/03/24 Labs Reviewed: Hgb 11.3, Hct 32.7, Alb 3.4, Na 123, Cre 0.42, Glu 112 Meds Noted: Protonix, Lasix, senna , zofran Skin: No pressure inuries. Additional Notes: Not eating meals, just drinking supplements, ice cream, pudding. Pt refused PEG tube. Continue current nutrition care plan Monitoring intakes, weights, labs, output, meds, chewing ability, supplement tolerance, plan of care Follow up in 5 days
[2024-10-09 09:40] LABS: Free T4 Free Thyroxine 0.62 ng/dL (0.78-2.19)
[2024-10-09] MEDS: oxyCODONE/ACETAMINOPHEN (*CRX) 5-325 MG TABLET 1 TABLET PO ×2 (12:08→22:31)
[2024-10-09 16:04] LABS: Sodium 124 mmol/L (137-145)
--- NOTE | 2024-10-09 16:57 | WPDNEUROPN ---
Progress Note: A&P Assessment and Plan (1) AMS (altered mental status): Code(s): R41.82 - Altered mental status, unspecified Status: Acute Plan The patient has undergone several investigations from neurologic point of view as well as from general medical point of view. I I am not sure about the diagnosis of seizures. Probably could consider getting her off the baclofen and slowly reducing the dose of the Mysoline or primidone unless we have definite history of any previous neurologic problems. There is a history of bipolar disorder and COPD. I shall be glad to discuss this further regarding primidone since the she has been on this for quite some time the exact reason for this was not clear to me. This of course sedating medication unless there is a definite need for that we can take her off that gradually that might help reduce the drowsiness. Generally it is used for tremors even though it is anticonvulsant but very many other choices for seizure medications and hence most people would not use it these days for seizures.. Hence if there is no definite need for that you can reduce the dose at a rate of 100 mg every week till it is stopped. Subjective Date/time seen: 10/09/24 16:57 Interval history: The patient continues to be lethargic and a sleepy. Current records were reviewed. She remains afebrile and vital signs stable although her heart rate of slightly faster at 1 or 2. List of current medications were reviewed. Review of Systems Review of Systems: ROS unobtainable: Yes unobtainable due to mental status Exam Narrative: Patient appears sleepy and unable to cooperate very much. No involuntary movements were seen. No cogwheeling or tremor were noted. Objective Data Vital Signs Vital Signs: Vital Signs - 24 hr 10/08/24 20:00 10/08/24 21:55 10/09/24 05:37 Temperature 98.6 F 98.4 F Pulse Rate 80 80 80 Respiratory Rate 16 16 16 Blood Pressure 151/65 H 150/62 H Pulse Oximetry 98 98 98 Oxygen Delivery Room Air Fraction of Inspired Oxygen 10/09/24 09:25 10/09/24 09:26 10/09/24 09:27 Temperature 97.1 F L Pulse Rate 95 95 95 Respiratory Rate 14 14 Blood Pressure 166/55 H Pulse Oximetry 97 97 Oxygen Delivery Room Air Fraction of Inspired Oxygen 10/09/24 13:55 Temperature 98.1 F Pulse Rate 102 H Respiratory Rate 20 Blood Pressure 142/63 H Pulse Oximetry 96 Oxygen Delivery Fraction of Inspired Oxygen Intake/Output Intake/Output: Intake & Output 10/06/24 10/07/24 10/08/24 10/09/24 23:59 23:59 23:59 23:59 Intake Total 1415 1430 1160 160 Output Total 1850 2700 0621 500 Xfpwggc -093 -1270 -2190 -340 Meds/Results Medications: Active Medications Generic Name Dose Route Start Last Admin Trade Name Freq PRN Reason Stop Dose Admin Acetaminophen 650 mg 09/19/24 09:14 Acetaminophen 650 Mg Suppository RECTAL Q6H PRN Mild Pain (1-3) or Fever Acetaminophen 650 mg 09/19/24 10:07 10/08/24 20:52 Acetaminophen 325 Mg Tablet PO 650 mg Q6H PRN Administration Mild Pain (1-3) or Fever Amlodipine Besylate 10 mg 09/16/24 09:00 10/09/24 09:26 Amlodipine Besylate 10 Mg Tablet PO 10 mg DAILY KELIN Administration Artificial Tears 1 drop 09/15/24 23:37 Artificial Tears Ophth Soln 15 Ml Bottle EACH EYE QID PRN Dry Eye(S) Atorvastatin Calcium 10 mg 09/16/24 00:25 10/08/24 20:52 Atorvastatin 10 Mg Tablet PO 10 mg HS KELIN Administration Baclofen 5 mg 09/26/24 17:00 10/09/24 16:43 Baclofen 5 Mg Tablet PO 5 mg BID KELIN Administration Dextrose 12.5 gm 09/15/24 12:45 Dextrose 50% 25 Gm/50 Ml Syringe IV PUSH PRN PRN Hypoglycemia Protocol Diclofenac Sodium 1 applic 09/15/24 23:37 Diclofenac Sodium 1% 100 Gm Gel (*Bkc) TOPICAL BID PRN moderate pain (scale score 5-6) Famotidine 20 mg 10/08/24 21:00 10/09/24 09:26 Famotidine 20 Mg Tablet PO 20 mg Q12HR KELIN Administration Fluticasone Propionate 2 spray 09/22/24 16:37 Fluticasone Propionate 0.05% Na Spr 16 Gm Btl (*Bkc) NASAL DAILY PRN Nasal Congestion Furosemide 10 mg 10/07/24 17:00 10/09/24 16:43 Furosemide 10 Mg Tablet PO 10 mg BID KELIN Administration Glucagon 1 mg 09/15/24 12:45 Glucagon For Inj 1 Mg Vial IM PRN PRN Hypoglycemia Protocol Glucose 15 gm 09/15/24 12:45 Glucose Oral Gel 15 Gm Of Glucse In 37.5 Gm Tube PO PRN PRN Hypoglycemia Protocol Guaifenesin 1,200 mg 09/16/24 09:00 10/09/24 16:43 Guaifenesin 12 Hr 600 Mg Tabcr PO 1,200 mg BID KELIN Administration Hydralazine HCl 10 mg 10/02/24 08:51 10/04/24 21:42 Hydralazine Hcl 20 Mg/Ml Vial IV PUSH 10 mg Q4H PRN Administration Blood Pressure - High Dextrose 1,000 mls @ 100 mls/hr 09/15/24 12:45 Dextrose 5% 1,000 Ml IVPB PRN PRN Hypoglycemia Protocol Irbesartan 150 mg 10/08/24 09:00 10/09/24 09:26 Irbesartan 150 Mg Tablet PO 150 mg QAM KELIN Administration Isosorbide Mononitrate 30 mg 09/16/24 09:00 10/09/24 09:27 Isosorbide Mononitrate 30 Mg Tab.Er.24h PO 30 mg DAILY KELIN Administration Lactulose 20 gm 10/06/24 16:10 Lactulose 20 Gm/30 Ml Udc PO DAILY PRN Constipation Levalbuterol HCl 1.25 mg 09/22/24 08:41 Levalbuterol Neb 1.25 Mg/3 Ml INHALATION Q6HRT PRN Shortness Of Breath Lidocaine 2 patch 09/16/24 09:00 10/09/24 09:27 Lidocaine 5% Patch TOPICAL Not Given DAILY KELIN Lorazepam 0.5 mg 10/02/24 12:05 10/04/24 21:45 Lorazepam (*Crx) 0.5 Mg Tablet PO 0.5 mg Q8H PRN Administration Anxiety Memantine 5 mg 09/16/24 00:25 10/09/24 09:26 Memantine 5 Mg Tablet PO 5 mg Q12HR KELIN Administration Miscellaneous Information 1 each 10/04/24 00:01 Pregabalin Needs To Be Renewed Or It Will Automatically Discontinue. XX 11/03/24 00:00 CLARIFY KELIN Nebivolol 10 mg 10/08/24 09:00 10/09/24 09:26 Nebivolol Hcl 5 Mg Tablet PO 10 mg DAILY KELIN Administration Ondansetron HCl 4 mg 09/15/24 12:45 Ondansetron Inj 4 Mg/2 Ml Vial IV PUSH Q4H PRN Nausea Oxycodone/Acetaminophen 1 tablet 10/03/24 15:56 10/09/24 12:08 Oxycodone/Acetaminophen (*Crx) 5-325 Mg Tablet PO 1 tablet Q4H PRN Administration Pain Rated 7-10 Polyethylene Glycol 17 gm 09/15/24 23:37 Polyethylene Glycol 3350 17 Gm Powd.Pack PO DAILY PRN Constipation Potassium Chloride 10 meq 09/16/24 09:00 10/09/24 09:27 Potassium Chloride 10 Meq Er Tablet PO 10 meq DAILY [facility] Administration Primidone 100 mg 09/22/24 09:00 10/09/24 16:43 Primidone 50 Mg Tablet PO 100 mg TID KELIN Administration Rivaroxaban 20 mg 09/23/24 17:00 09/28/24 17:16 Rivaroxaban 20 Mg Tablet PO 20 mg DAILY@1700 [facility] Administration Senna 8.6 mg 10/06/24 16:10 10/09/24 09:26 Sennosides 8.6 Mg Tablet PO 8.6 mg DAILY [facility] Administration Senna/Docusate Sodium 2 tab 10/07/24 09:00 10/09/24 16:43 Senna/Docusate Sodium Tablet PO 2 tab BID [facility] Administration Sodium Chloride 2 spray 09/15/24 23:37 Saline 0.65% [place] Soln 44 Ml Btl NASAL PRN PRN Congestion Sodium Chloride 1,000 mg 10/03/24 11:00 10/09/24 16:43 Sodium Chloride 500 Mg Tablet PO 1,000 mg TID [facility] Administration Vitamin B Complex 1 cap 09/16/24 09:00 10/09/24 09:27 Vitamin B Complex Capsule PO 1 cap QAM [facility] Administration Vitamin D 5,000 units 09/16/24 09:00 10/09/24 09:27 Cholecalciferol 5,000 Units Tablet PO 5,000 units DAILY [facility] Administration Vitamin E 800 unit 09/16/24 09:00 10/09/24 09:26 Vitamin E 400 Unit Capsule PO 800 unit DAILY KELIN Administration Zolpidem Tartrate 2.5 mg 10/06/24 21:00 10/08/24 20:52 Zolpidem Tartrate (*Crx) 2.5 Mg Tablet PO 2.5 mg HS KELIN Administration Radiology Results: ITS Impressions Head CT 09/15/24 11:48 IMPRESSION: 1. 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 No acute intracranial process. 2. Age-related changes including moderate diffuse on loss and mild scattered white matter hypoattenuation consistent with chronic small vessel ischemic disease. Brain MRI 09/18/24 08:50 IMPRESSION: 1. Age-related changes in the brain. No acute intracranial process. 2. 1.3 x 1.2 x 0.9 cm T2 hyperintense intrasellar mass versus cystic lesion. 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 There is been no evident change in appearance of the pituitary on multiple prior CT studies dating back to which would argue against malignancy/metastases. Would recommend obtaining pre and postcontrast pituitary protocol MRI to distinguish solid versus cystic which would aid in narrowing the differential. [facility] MRI 09/19/24 12:56 IMPRESSION: 1. 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 2. 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 Lumbar Puncture Fluoroscopy 09/19/24 14:00 IMPRESSION: 1. Successful fluoro-guided lumbar puncture. Chest X-Ray 09/24/24 07:39 Impression: Central pulmonary venous congestive change. Labs Labs: Laboratory Results - last 24 hr 10/08/24 10/09/24 10/09/24 20:21 08:12 08:12 WBC 6.3 RBC 3.72 L Hgb 11.3 L Hct 32.7 L MCV 87.9 MCH 30.4 MCHC 34.6 RDW 15.2 H Plt Count 224 MPV 10.1 Immature Gran % (Auto) 1.3 H Neut % (Auto) 60.3 Lymph % (Auto) 24.2 Finney % (Auto) 11.7 H Eos % (Auto) 2.2 Baso % (Auto) 0.3 Lymph # (Auto) 1.53 Finney # (Auto) 0.7 H Eos # (Auto) 0.1 Baso # (Auto) 0.0 Abs Immat Gran (auto) 0.08 H Absolute Neuts (auto) 3.8 Absolute Nucleated RBC 0.000 Nucleated RBC % 0.0 Sodium 120 L Cancelled 123 L Potassium Cancelled Chloride Carbon Dioxide Anion Gap BUN Creatinine Estim Creat Clear Calc Estimated GFR Glucose Calcium Phosphorus Magnesium Albumin Free T4 10/09/24 10/09/24 10/09/24 08:12 08:12 08:12 WBC RBC Hgb Hct MCV MCH MCHC RDW Plt Count MPV Immature Gran % (Auto) Neut % (Auto) Lymph % (Auto) Finney % (Auto) Eos % (Auto) Baso % (Auto) Lymph # (Auto) Finney # (Auto) Eos # (Auto) Baso # (Auto) Abs Immat Gran (auto) Absolute Neuts (auto) Absolute Nucleated RBC Nucleated RBC % Sodium Potassium 4.4 Chloride Cancelled 93 L Carbon Dioxide Cancelled 24 Anion Gap Cancelled BUN Creatinine Estim Creat Clear Calc Estimated GFR Glucose Calcium Phosphorus Magnesium Albumin Free T4 10/09/24 10/09/24 10/09/24 08:12 08:12 08:12 WBC RBC Hgb Hct MCV MCH MCHC RDW Plt Count MPV Immature Gran % (Auto) Neut % (Auto) Lymph % (Auto) Finney % (Auto) Eos % (Auto) Baso % (Auto) Lymph # (Auto) Finney # (Auto) Eos # (Auto) Baso # (Auto) Abs Immat Gran (auto) Absolute Neuts (auto) Absolute Nucleated RBC Nucleated RBC % Sodium Potassium Chloride Carbon Dioxide Anion Gap 6 BUN Cancelled 12 Creatinine Cancelled 0.42 L Estim Creat Clear Calc Cancelled Estimated GFR Glucose Calcium Phosphorus Magnesium Albumin Free T4 10/09/24 10/09/24 10/09/24 08:12 08:12 08:12 WBC RBC Hgb Hct MCV MCH MCHC RDW Plt Count MPV Immature Gran % (Auto) Neut % (Auto) Lymph % (Auto) Finney % (Auto) Eos % (Auto) Baso % (Auto) Lymph # (Auto) Finney # (Auto) Eos # (Auto) Baso # (Auto) Abs Immat Gran (auto) Absolute Neuts (auto) Absolute Nucleated RBC Nucleated RBC % Sodium Potassium Chloride Carbon Dioxide Anion Gap BUN Creatinine Estim Creat Clear Calc 105 Estimated GFR Cancelled > 60 Glucose Cancelled 112 H Calcium Cancelled Phosphorus Magnesium Albumin Free T4 10/09/24 10/09/24 08:12 15:27 WBC RBC Hgb Hct MCV MCH MCHC RDW Plt Count MPV Immature Gran % (Auto) Neut % (Auto) Lymph % (Auto) Finney % (Auto) Eos % (Auto) Baso % (Auto) Lymph # (Auto) Finney # (Auto) Eos # (Auto) Baso # (Auto) Abs Immat Gran (auto) Absolute Neuts (auto) Absolute Nucleated RBC Nucleated RBC % Sodium 124 L Potassium Chloride Carbon Dioxide Anion Gap BUN Creatinine Estim Creat Clear Calc Estimated GFR Glucose Calcium 8.6 Phosphorus 3.6 Magnesium 1.6 Albumin 3.4 L Free T4 0.62 L
[2024-10-09] MEDS: LORazepam (*CRX) 0.5 MG TABLET PO ×2 (17:52→23:43)
[2024-10-09 21:23] LABS: Albumin 2.8 g/dL (3.8-4.8); Alpha 1 Globulin 0.4 g/dL (0.2-0.3); Beta 1 Globulin 0.4 g/dL (0.4-0.6); Gamma Globulin 0.6 g/dL (0.8-1.7)
[2024-10-09] MEDS: ACETAMINOPHEN 325 MG TABLET 650 MG PO (21:29)
[2024-10-09] MEDS: ATORVASTATIN 10 MG TABLET PO (21:29)
[2024-10-09] MEDS: ZOLPIDEM TARTRATE (*CRX) 2.5 MG TABLET PO (21:29)
[2024-10-09] MEDS: SODIUM CHLORIDE 3% 43 ML IV CONT (21:30)
[2024-10-10] VITALS (7 sets, daily range): BP systolic 151–183; BP diastolic 55–68; PULSE 65–78; RESP 14–18; TEMP 36.1–36.9; O2SAT 97–100
[2024-10-10] MEDS: oxyCODONE/ACETAMINOPHEN (*CRX) 5-325 MG TABLET 1 TABLET PO ×4 (03:16→20:50)
[2024-10-10 07:38] LABS: Albumin Level 3.3 g/dL (3.5-5.1); Anion Gap 8 mmol/L (4-12); Blood Urea Nitrogen 17 mg/dL (7-17); Calcium 8.5 mg/dL (8.4-10.2); Carbon Dioxide 23 mmol/L (22-30); Chloride 96 mmol/L (98-107); Estimated CRCL calculation 91 ml/min; Estimated Glomerular Filt Rate > 60; Glucose 97 mg/dL (65-110); Phosphorus 3.5 mg/dL (2.5-4.5); Potassium 4.4 mmol/L (3.4-5.0); Sodium 127 mmol/L (137-145)
--- NOTE | 2024-10-10 08:33 | PM.IMPN ---
Progress Note: A&P Assessment and Plan (1) Altered mental status: Code(s): R41.82 - Altered mental status, unspecified Status: Acute (2) Sepsis: Qualifiers: Sepsis acute organ dysfunction status: unspecified Sepsis type: methicillin resistant Staphylococcus aureus Qualified Code(s): A41.02 - Sepsis due to Methicillin resistant Staphylococcus aureus Code(s): A41.9 - Sepsis, unspecified organism Status: Acute (3) Anxiety: Code(s): F41.9 - Anxiety disorder, unspecified Status: Chronic Plan AMS (altered mental status): Code(s): R41.82 - Altered mental status, unspecified Status: Acute Assessment and Plan: Patient presents with altered mental status. She has a normal baseline AOx3 with slow speech. 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 Patient presented with fevers on 09/15. LP performed 09/19 showing no RBCs and 1 WBCs with mostly lymphocytes. Gram stain showing rare WBC and no organisms. Glucose 97 and protein 51. Viral and bacterial meningitis unlikely but she was on abx prior to LP being performed so could be partially treated meningitis. Consider AMS related to polypharmacy. Consider catatonia. Symptoms seem to wax and wane - delirium? CSF HSV PCR negative. Acyclovir stopped. CSF bacterial cultures were NOT sent to [facility] (fungal cx sent); unable to determine if partially treated meningitis but felt less likely. Stop IV abx and monitor Primidone and Baclofen were cuts back. 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 Patient has dysphagia likely resulting from previous multiple stroke I had a long and thought discussions with patient's family: patient's and daughter about prognosis and goals of care, Patient daughter down man request to start feeding tube for G-tube consult GI for tube feeding placement, plans bed tube on Wednesday. Will place NG tube for feeding today 09/30 Patient feels better today, appetite is improving, mental status improving, patient declines NG tube feeding. Waiting patient family to make decision about tube feeding 10/01 Patient is lethargic, unable to engage conversation or follow commands, patient cannot recall her conversation with the care coordinators. Patient has a multiple chronic infarct on MRI, MRI also showed moderate diffuse cerebral volume loss. Patient may have dementia related age and multiple stroke. 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 p.o. per neurologist recommendation Discontinue furosemide 20 mg b.i.d. p.o. Received IV fluid with normal saline 75 mL/hour Patient cannot tolerate diet well, Sodium dropped to 113 10/07 Appreciate seafood technology specialist consultation. Start hypertonic saline per seafood technology specialist Sodium is trending up 120. c/w sodium chloride tablets and furosemide as well as fluid restriction. check Na and will give more 3% saline if it is still not rising. 10/09 Sodium is trending up, went 27 today10/10 Dysphagia Patient does not have appetite and also had trouble with swallowing Patient ate a little today, patient cannot have enough oral intake to support life Likely secondary to dementia,, possible ischemic dementia, MRI showed multiple strokes before and also brain malacia Patient does not want NG tube feeding But patient is able to eat and drink her function seems improving. no need to provide tube feeding, if she continue to improve Speech evaluate patient, patient able to take regular diet 10/10 Started PT/OT/ST. ST recommended dropping her from Level 5 to Level 4 Pureed diet which was done. Discussed with neurology. He recommended continuing to wean primidone every 7 days. Scheduled IV Ativan for possible catatonia. Did have some improvement yesterday but worse today. ABG ordered but this was okay. back off on Ativan. Stop IV abx. Pending neurologist's follow-up consultation Insomnia Provide Ambien 2.5 mg q.h.s. Constipation Start Senokot S2 tabs b.i.d. p.o. Sepsis: Qualifiers: Sepsis acute organ dysfunction status: unspecified Sepsis type: sepsis due to unspecified organism Qualified Code(s): A41.9 - Sepsis, unspecified organism Code(s): A41.9 - Sepsis, unspecified organism Status: Acute Assessment and Plan: Noted on admission with fevers, AMS and elevated white count. UTI has been ruled out. Blood cultures negative. Chest x-ray was clear on admission and repeat CXR clear on 09/18. No CSF cultures sent to [facility]. Stop abx and monitor. White blood cell within normal limit, patient is afebrile, resolved Atrial fibrillation with RVR: Code(s): I48.91 - Unspecified atrial fibrillation Status: Acute Assessment and Plan: Review of chart showing she has AFib and was on Xarelto on prior admissions. In the paper chart, the papers from the [facility] sheets only had 5 of 6 sheets. Suspect the 6th sheet listed additional medications (including Xarelto). RN will call [facility] to get a complete list of patient's medications. Restarted Xarelto Hypertension: Code(s): I10 - Essential (primary) hypertension Status: Acute Assessment and Plan: Patient's blood pressure was reviewed on 09/26 Blood pressure with wide fluctuations. Hydralazine held. continue to monitor for now Acute and chronic respiratory failure: Qualifiers: Respiratory failure complication: hypoxia Qualified Code(s): J96.21 - Acute and chronic respiratory failure with hypoxia Code(s): J96.20 - Acute and chronic respiratory failure, unspecified whether with hypoxia or hypercapnia Status: Acute Assessment and Plan: ABG in ER - pH of 7.46, pCO2 33.0, PO2 67.4, bicarb 23.0, O2 94.6%. Patient presumably wears oxygen at the facility but has been weaned to room air here Continue CPAP at night and with naps as she allows. Now patient is still on room air Obstructive sleep apnea: Code(s): G47.33 - Obstructive sleep apnea (adult) (pediatric) Status: Acute Assessment and Plan: Continue CPAP at night and with naps as she allows. UTI (urinary tract infection): Qualifiers: Hematuria presence: without hematuria Urinary tract infection type: acute cystitis Qualified Code(s): N30.00 - Acute cystitis without hematuria Code(s): N39.0 - Urinary tract infection, site not specified Status: Resolved Assessment and Plan: UA is consistent with UTI. UCx collected. 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 Abx started. BCx and UCx negative. UTI ruled out. She is having urine retention and unable to tolerate the Delarosa removed 09/25/24. Plan for discharge with Delarosa Tachycardia: Code(s): R00.0 - Tachycardia, unspecified Status: Resolved Assessment and Plan: Probably related to above. Heart rate better controlled. No alarms by tele so tele stopped. Resolved Patient condition continue to improve, plan discharge patient back to [facility] in 2 days if patient condition continue to improve Subjective Date/time seen: 10/10/24 08:33 Interval history: Saw examined patient today. Patient afebrile, blood pressure stable, remained lethargic, alert, able follow commands. Patient condition continue improved today, alert oriented x3. Labs reviewed, sodium is trending up 127 today Exam Narrative: GENERAL: Pleasant, in no acute distress. Well-nourished. - EYES: EOMI. Anicteric. - HENT: Moist mucous membranes. - LUNGS: Clear to auscultation bilaterally, no wheezing, rhonchi, or rales. - CARDIOVASCULAR: Regular rate and rhythm. No murmur. No JVD. - ABDOMEN: Soft, non-tender and non-distended. No palpable masses. 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 - NEUROLOGIC: No focal neurological deficits. Able to move and hold upper extremities - PSYCHIATRIC: Awake, Alert and oriented x 3. Appropriate mood and affect. - SKIN: No rashes or lesions. Warm. - LYMPH: No cervical lymphadenopathy. Objective Data Vital Signs Vital Signs: Vital Signs - 24 hr 10/09/24 09:25 10/09/24 09:26 10/09/24 09:27 Temperature 97.1 F L Pulse Rate 95 95 95 Respiratory Rate 14 14 Blood Pressure 166/55 H Pulse Oximetry 97 97 Oxygen Delivery Room Air Fraction of Inspired Oxygen 21 10/09/24 13:55 10/09/24 20:00 10/09/24 21:24 Temperature 98.1 F 98.9 F Pulse Rate 102 H 68 68 Respiratory Rate 20 16 16 Blood Pressure 142/63 H 157/66 H Pulse Oximetry 96 97 97 Oxygen Delivery Room Air Fraction of Inspired Oxygen 21 10/10/24 06:00 10/10/24 06:43 Temperature 98.5 F Pulse Rate 69 Respiratory Rate 16 Blood Pressure 178/68 H 183/61 H Pulse Oximetry 100 Oxygen Delivery Fraction of Inspired Oxygen Intake/Output Intake/Output: Intake & Output 10/07/24 10/08/24 10/09/24 10/10/24 23:59 23:59 23:59 23:59 Intake Total 1430 1160 260 Output Total 2700 3350 700 Balance -1270 -2190 -440 Meds/Results Medications: Active Medications Generic Name Dose Route Start Last Admin Trade Name Freq PRN Reason Stop Dose Admin Acetaminophen 650 mg 09/19/24 09:14 Acetaminophen 650 Mg Suppository RECTAL Q6H PRN Mild Pain (1-3) or Fever Acetaminophen 650 mg 09/19/24 10:07 10/09/24 21:29 Acetaminophen 325 Mg Tablet PO 650 mg Q6H PRN Administration Mild Pain (1-3) or Fever Amlodipine Besylate 10 mg 09/16/24 09:00 10/09/24 09:26 Amlodipine Besylate 10 Mg Tablet PO 10 mg DAILY KELIN Administration Artificial Tears 1 drop 09/15/24 23:37 Artificial Tears Ophth Soln 15 Ml Bottle EACH EYE QID PRN Dry Eye(S) Atorvastatin Calcium 10 mg 09/16/24 00:25 10/09/24 21:29 Atorvastatin 10 Mg Tablet PO 10 mg HS KELIN Administration Dextrose 12.5 gm 09/15/24 12:45 Dextrose 50% 25 Gm/50 Ml Syringe IV PUSH PRN PRN Hypoglycemia Protocol Diclofenac Sodium 1 applic 09/15/24 23:37 Diclofenac Sodium 1% 100 Gm Gel (*Bkc) TOPICAL BID PRN moderate pain (scale score 5-6) Famotidine 20 mg 10/08/24 21:00 10/09/24 21:29 Famotidine 20 Mg Tablet PO 20 mg Q12HR KELIN Administration Fluticasone Propionate 2 spray 09/22/24 16:37 Fluticasone Propionate 0.05% Na Spr 16 Gm Btl (*Bkc) NASAL DAILY PRN Nasal Congestion Furosemide 10 mg 10/07/24 17:00 10/09/24 16:43 Furosemide 10 Mg Tablet PO 10 mg BID KELIN Administration Glucagon 1 mg 09/15/24 12:45 Glucagon For Inj 1 Mg Vial IM PRN PRN Hypoglycemia Protocol Glucose 15 gm 09/15/24 12:45 Glucose Oral Gel 15 Gm Of Glucse In 37.5 Gm Tube PO PRN PRN Hypoglycemia Protocol Guaifenesin 1,200 mg 09/16/24 09:00 10/09/24 16:43 Guaifenesin 12 Hr 600 Mg Tabcr PO 1,200 mg BID KELIN Administration Hydralazine HCl 10 mg 10/02/24 08:51 10/04/24 21:42 Hydralazine Hcl 20 Mg/Ml Vial IV PUSH 10 mg Q4H PRN Administration Blood Pressure - High Dextrose 1,000 mls @ 100 mls/hr 09/15/24 12:45 Dextrose 5% 1,000 Ml IVPB PRN PRN Hypoglycemia Protocol Irbesartan 150 mg 10/08/24 09:00 10/09/24 09:26 Irbesartan 150 Mg Tablet PO 150 mg QAM KELIN Administration Isosorbide Mononitrate 30 mg 09/16/24 09:00 10/09/24 09:27 Isosorbide Mononitrate 30 Mg Tab.Er.24h PO 30 mg DAILY KELIN Administration Lactulose 20 gm 10/06/24 16:10 Lactulose 20 Gm/30 Ml Udc PO DAILY PRN Constipation Levalbuterol HCl 1.25 mg 09/22/24 08:41 Levalbuterol Neb 1.25 Mg/3 Ml INHALATION Q6HRT PRN Shortness Of Breath Lidocaine 2 patch 09/16/24 09:00 10/09/24 09:27 Lidocaine 5% Patch TOPICAL Not Given DAILY [facility] Lorazepam 0.5 mg 10/02/24 12:05 10/09/24 23:43 Lorazepam (*Crx) 0.5 Mg Tablet PO 0.5 mg Q8H PRN Administration Anxiety Memantine 5 mg 09/16/24 00:25 10/09/24 21:29 Memantine 5 Mg Tablet PO 5 mg Q12HR KELIN Administration Miscellaneous Information 1 each 10/04/24 00:01 Pregabalin Needs To Be Renewed Or It Will Automatically Discontinue. XX 11/03/24 00:00 CLARIFY KELIN Nebivolol 10 mg 10/08/24 09:00 10/09/24 09:26 Nebivolol Hcl 5 Mg Tablet PO 10 mg DAILY KELIN Administration Ondansetron HCl 4 mg 09/15/24 12:45 Ondansetron Inj 4 Mg/2 Ml Vial IV PUSH Q4H PRN Nausea Oxycodone/Acetaminophen 1 tablet 10/03/24 15:56 10/10/24 03:16 Oxycodone/Acetaminophen (*Crx) 5-325 Mg Tablet PO 1 tablet Q4H PRN Administration Pain Rated 7-10 Polyethylene Glycol 17 gm 09/15/24 23:37 Polyethylene Glycol 3350 17 Gm Powd.Pack PO DAILY PRN Constipation Potassium Chloride 10 meq 09/16/24 09:00 10/09/24 09:27 Potassium Chloride 10 Meq Er Tablet PO 10 meq DAILY KELIN Administration Primidone 100 mg 09/22/24 09:00 10/09/24 16:43 Primidone 50 Mg Tablet PO 100 mg TID KELIN Administration Rivaroxaban 20 mg 09/23/24 17:00 09/28/24 17:16 Rivaroxaban 20 Mg Tablet PO 20 mg DAILY@1700 [facility] Administration Senna 8.6 mg 10/06/24 16:10 10/09/24 09:26 Sennosides 8.6 Mg Tablet PO 8.6 mg DAILY KELIN Administration Senna/Docusate Sodium 2 tab 10/07/24 09:00 10/09/24 16:43 Senna/Docusate Sodium Tablet PO 2 tab BID KELIN Administration Sodium Chloride 2 spray 09/15/24 23:37 Saline 0.65% Gordo Soln 44 Ml Btl NASAL PRN PRN Congestion Sodium Chloride 1,000 mg 10/03/24 11:00 10/09/24 16:43 Sodium Chloride 500 Mg Tablet PO 1,000 mg TID KELIN Administration Vitamin B Complex 1 cap 09/16/24 09:00 10/09/24 09:27 Vitamin B Complex Capsule PO 1 cap QAM KELIN Administration Vitamin D 5,000 units 09/16/24 09:00 10/09/24 09:27 Cholecalciferol 5,000 Units Tablet PO 5,000 units DAILY KELIN Administration Vitamin E 800 unit 09/16/24 09:00 10/09/24 09:26 Vitamin E 400 Unit Capsule PO 800 unit DAILY KELIN Administration Zolpidem Tartrate 2.5 mg 10/06/24 21:00 10/09/24 21:29 Zolpidem Tartrate (*Crx) 2.5 Mg Tablet PO 2.5 mg HS KELIN Administration Radiology Results: ITS Impressions Head CT 09/15/24 11:48 IMPRESSION: 1. 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 No acute intracranial process. 2. Age-related changes including moderate diffuse on loss and mild scattered white matter hypoattenuation consistent with chronic small vessel ischemic disease. Brain MRI 09/18/24 08:50 IMPRESSION: 1. Age-related changes in the brain. No acute intracranial process. 2. 1.3 x 1.2 x 0.9 cm T2 hyperintense intrasellar mass versus cystic lesion. 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 There is been no evident change in appearance of the pituitary on multiple prior CT studies dating back to 19 which would argue against malignancy/metastases. Would recommend obtaining pre and postcontrast pituitary protocol MRI to distinguish solid versus cystic which would aid in narrowing the differential. Sella Turcica MRI 09/19/24 12:56 IMPRESSION: 1. 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 2. 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 Lumbar Puncture Fluoroscopy 09/19/24 14:00 IMPRESSION: 1. Successful fluoro-guided lumbar puncture. Chest X-Ray 09/24/24 07:39 Impression: Central pulmonary venous congestive change. Labs Labs: Laboratory Results - last 24 hr 10/06/24 10/09/24 10/09/24 04:45 08:12 15:27 WBC 6.3 RBC 3.72 L Hgb 11.3 L Hct 32.7 L MCV 87.9 MCH 30.4 MCHC 34.6 RDW 15.2 H Plt Count 224 MPV 10.1 Immature Gran % (Auto) 1.3 H Neut % (Auto) 60.3 Lymph % (Auto) 24.2 [place] % (Auto) 11.7 H Eos % (Auto) 2.2 Baso % (Auto) 0.3 Lymph # (Auto) 1.53 [place] # (Auto) 0.7 H Eos # (Auto) 0.1 Baso # (Auto) 0.0 Abs Immat Gran (auto) 0.08 H Absolute Neuts (auto) 3.8 Absolute Nucleated RBC 0.000 Nucleated RBC % 0.0 Sodium 123 L 124 L Potassium 4.4 Chloride 93 L Carbon Dioxide 24 Anion Gap 6 BUN 12 Creatinine 0.42 L Estim Creat Clear Calc 105 Estimated GFR > 60 Glucose 112 H Calcium 8.6 Phosphorus 3.6 Magnesium 1.6 Albumin 2.8 L 3.4 L Zonva-1-Qnfqkduwa 0.4 H Kmnhv-1-Lqfmjqtpp 1.0 H Mbab-2-Ohvkbwts 0.4 Yzuv-6-Ufyzrszd 0.2 Gamma Globulins 0.6 L PEP Interpretation See note Free T4 0.62 L 10/10/24 04:44 WBC RBC Hgb Hct MCV MCH MCHC RDW Plt Count MPV Immature Gran % (Auto) Neut % (Auto) Lymph % (Auto) [place] % (Auto) Eos % (Auto) Baso % (Auto) Lymph # (Auto) [place] # (Auto) Eos # (Auto) Baso # (Auto) Abs Immat Gran (auto) Absolute Neuts (auto) Absolute Nucleated RBC Nucleated RBC % Sodium 127 L Potassium 4.4 Chloride 96 L Carbon Dioxide 23 Anion Gap 8 BUN 17 Creatinine 0.49 L Estim Creat Clear Calc 91 Estimated GFR > 60 Glucose 97 Calcium 8.5 Phosphorus 3.5 Magnesium Albumin 3.3 L Rpggn-6-Ueyujirmf Dcjzp-9-Yyczbkika Zyia-6-Kctayovj Txvi-5-Nobetlyx Gamma Globulins PEP Interpretation Free T4
[2024-10-10] MEDS: SENNA/DOCUSATE SODIUM TABLET 2 TAB PO ×2 (08:40→17:32)
[2024-10-10] MEDS: MEMANTINE 5 MG TABLET PO ×2 (08:40→20:50)
[2024-10-10] MEDS: NEBIVOLOL HCL 5 MG TABLET 10 MG PO (08:40)
[2024-10-10] MEDS: amLODIPine BESYLATE 10 MG TABLET PO (08:40)
[2024-10-10] MEDS: IRBESARTAN 150 MG TABLET PO (08:40)
[2024-10-10] MEDS: CHOLECALCIFEROL 5,000 UNITS TABLET 5000 UNITS PO (08:41)
[2024-10-10] MEDS: guaiFENesin 12 HR 600 MG TABCR 1200 MG PO ×2 (08:41→17:33)
[2024-10-10] MEDS: SENNOSIDES 8.6 MG TABLET PO (08:41)
[2024-10-10] MEDS: PRIMIDONE 50 MG TABLET 100 MG PO ×3 (08:41→17:33)
[2024-10-10] MEDS: FAMOTIDINE 20 MG TABLET PO ×2 (08:41→20:50)
[2024-10-10] MEDS: VITAMIN B COMPLEX CAPSULE 1 CAP PO (08:41)
[2024-10-10] MEDS: FUROSEMIDE 10 MG TABLET PO ×2 (08:41→17:33)
[2024-10-10] MEDS: ISOSORBIDE MONONITRATE 30 MG TAB.ER.24H PO (08:41)
[2024-10-10] MEDS: POTASSIUM CHLORIDE 10 MEQ ER TABLET PO (08:41)
[2024-10-10] MEDS: VITAMIN E 400 UNIT CAPSULE 800 UNIT PO (08:41)
[2024-10-10] MEDS: SODIUM CHLORIDE 500 MG TABLET 1000 MG PO ×3 (08:42→17:33)
--- NOTE | 2024-10-10 12:41 | PCSTNOTE ---
Please refer to the Bedside Swallow Evaluation in the EMR. Please note, silent aspiration cannot be ruled out at bedside.
[2024-10-10] MEDS: LORazepam (*CRX) 0.5 MG TABLET PO (15:27)
[2024-10-10] MEDS: ATORVASTATIN 10 MG TABLET PO (20:50)
[2024-10-11] VITALS (8 sets, daily range): BP systolic 154–190; BP diastolic 58–70; PULSE 69–92; RESP 16–18; TEMP 36.4–36.7; O2SAT 96–99
[2024-10-11] MEDS: oxyCODONE/ACETAMINOPHEN (*CRX) 5-325 MG TABLET 1 TABLET PO ×5 (01:10→22:00)
[2024-10-11] MEDS: LORazepam (*CRX) 0.5 MG TABLET PO ×2 (01:10→15:24)
[2024-10-11] MEDS: hydrALAZINE HCL 20 MG/ML VIAL 10 MG IV PUSH (05:56)
--- NOTE | 2024-10-11 08:10 | P.PNIM_ITS ---
Progress Note: A&P Assessment and Plan (1) Altered mental status: Code(s): R41.82 - Altered mental status, unspecified Status: Acute (2) Sepsis: Qualifiers: Sepsis acute organ dysfunction status: unspecified Sepsis type: methicillin resistant Staphylococcus aureus Qualified Code(s): A41.02 - Sepsis due to Methicillin resistant Staphylococcus aureus Code(s): A41.9 - Sepsis, unspecified organism Status: Acute (3) Anxiety: Code(s): F41.9 - Anxiety disorder, unspecified Status: Chronic Plan AMS (altered mental status): Code(s): R41.82 - Altered mental status, unspecified Status: Acute Assessment and Plan: Patient presents with altered mental status. She has a normal baseline AOx3 with slow speech. 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 Patient presented with fevers on 09/15. LP performed 09/19 showing no RBCs and 1 WBCs with mostly lymphocytes. Gram stain showing rare WBC and no organisms. Glucose 97 and protein 51. Viral and bacterial meningitis unlikely but she was on abx prior to LP being performed so could be partially treated meningitis. Consider AMS related to polypharmacy. Consider catatonia. Symptoms seem to wax and wane - delirium? CSF HSV PCR negative. Acyclovir stopped. CSF bacterial cultures were NOT sent to [facility] (fungal cx sent); unable to determine if partially treated meningitis but felt less likely. Stop IV abx and monitor Primidone and Baclofen were cuts back. 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 Patient has dysphagia likely resulting from previous multiple stroke I had a long and thought discussions with patient's family: patient's and daughter about prognosis and goals of care, Patient daughter down man request to start feeding tube for G-tube consult GI for tube feeding placement, plans bed tube on Wednesday. Will place NG tube for feeding today 09/30 Patient feels better today, appetite is improving, mental status improving, patient declines NG tube feeding. Waiting patient family to make decision about tube feeding 10/01 Patient is lethargic, unable to engage conversation or follow commands, patient cannot recall her conversation with the care coordinators. Patient has a multiple chronic infarct on MRI, MRI also showed moderate diffuse cerebral volume loss. Patient may have dementia related age and multiple stroke. 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 p.o. per neurologist recommendation Discontinue furosemide 20 mg b.i.d. p.o. Received IV fluid with normal saline 75 mL/hour Patient cannot tolerate diet well, Sodium dropped to 113 10/07 Appreciate manager finance consultation. Start hypertonic saline per manager finance Sodium is trending up 120. c/w sodium chloride tablets and furosemide as well as fluid restriction. check Na and will give more 3% saline if it is still not rising. 10/09 Sodium is trending up, went 27 10/10 Dysphagia Patient does not have appetite and also had trouble with swallowing Patient ate a little today, patient cannot have enough oral intake to support life Likely secondary to dementia,, possible ischemic dementia, MRI showed multiple strokes before and also brain malacia Patient does not want NG tube feeding But patient is able to eat and drink her function seems improving. no need to provide tube feeding, if she continue to improve Speech evaluate patient, patient able to take regular diet 10/10 Started PT/OT/ST. ST recommended dropping her from Level 5 to Level 4 Pureed diet which was done. Discussed with neurology. He recommended continuing to wean primidone every 7 days. Scheduled IV Ativan for possible catatonia. Did have some improvement yesterday but worse today. ABG ordered but this was okay. back off on Ativan. Stop IV abx. Pending neurologist's follow-up consultation Insomnia Provide Ambien 2.5 mg q.h.s. Constipation Start Senokot S2 tabs b.i.d. p.o. Sepsis: Qualifiers: Sepsis acute organ dysfunction status: unspecified Sepsis type: sepsis due to unspecified organism Qualified Code(s): A41.9 - Sepsis, unspecified organism Code(s): A41.9 - Sepsis, unspecified organism Status: Acute Assessment and Plan: Noted on admission with fevers, AMS and elevated white count. UTI has been ruled out. Blood cultures negative. Chest x-ray was clear on admission and repeat CXR clear on 09/18. No CSF cultures sent to [facility]. Stop abx and monitor. White blood cell within normal limit, patient is afebrile, resolved Atrial fibrillation with RVR: Code(s): I48.91 - Unspecified atrial fibrillation Status: Acute Assessment and Plan: Review of chart showing she has AFib and was on Xarelto on prior admissions. In the paper chart, the papers from the custodial sheets only had 5 of 6 sheets. Suspect the 6th sheet listed additional medications (including Xarelto). RN will call custodial to get a complete list of patient's medications. Restarted Xarelto Hypertension: Code(s): I10 - Essential (primary) hypertension Status: Acute Assessment and Plan: Patient's blood pressure was reviewed on 09/26 Blood pressure with wide fluctuations. Hydralazine held. continue to monitor for now Acute and chronic respiratory failure: Qualifiers: Respiratory failure complication: hypoxia Qualified Code(s): J96.21 - Acute and chronic respiratory failure with hypoxia Code(s): J96.20 - Acute and chronic respiratory failure, unspecified whether with hypoxia or hypercapnia Status: Acute Assessment and Plan: ABG in ER - pH of 7.46, pCO2 33.0, PO2 67.4, bicarb 23.0, O2 94.6%. Patient presumably wears oxygen at the facility but has been weaned to room air here Continue CPAP at night and with naps as she allows. Now patient is still on room air Obstructive sleep apnea: Code(s): G47.33 - Obstructive sleep apnea (adult) (pediatric) Status: Acute Assessment and Plan: Continue CPAP at night and with naps as she allows. UTI (urinary tract infection): Qualifiers: Hematuria presence: without hematuria Urinary tract infection type: acute cystitis Qualified Code(s): N30.00 - Acute cystitis without hematuria Code(s): N39.0 - Urinary tract infection, site not specified Status: Resolved Assessment and Plan: UA is consistent with UTI. UCx collected. 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 Abx started. BCx and UCx negative. UTI ruled out. She is having urine retention and unable to tolerate the Delarosa removed 09/25/24. Plan for discharge with Delarosa Tachycardia: Code(s): R00.0 - Tachycardia, unspecified Status: Resolved Assessment and Plan: Probably related to above. Heart rate better controlled. No alarms by tele so tele stopped. Resolved Patient condition continue to improve, plan discharge patient back to custodial in 2 days if patient condition continue to improve Subjective Date/time seen: 10/11/24 08:10 Interval history: Saw examined patient today. no change since Patient afebrile, blood pressure stable, remained lethargic, alert, able follow commands. Patient condition continue improved today, alert oriented x3. Labs reviewed, sodium is stable today 127 today Exam Narrative: GENERAL: Pleasant, in no acute distress. Well-nourished. - EYES: EOMI. Anicteric. - HENT: Moist mucous membranes. - LUNGS: Clear to auscultation bilateral ly, no wheezing, rhonchi, or rales. - CARDIOVASCULAR: Regular rate and rhyth m. No murmur. No JVD. - ABDOMEN: Soft, non-tender and non-dist ended. No palpable masses. - EXTREMITIES: Left above knee amputati on, unable to move right lower extremity Non-tender. - NEUROLOGIC: No focal neurological defi cits. Able to move and hold upper extremities - PSYCHIATRIC: Awake, Alert and oriented x 3. Appropriate mood and affect. - SKIN: No rashes or lesions. Warm. - LYMPH: No cervical lymphadenopathy. Objective Data Vital Signs Vital Signs: Vital Signs - 24 hr 10/10/24 08:37 10/10/24 08:40 10/10/24 08:41 Temperature 96.9 F L Pulse Rate 76 78 78 Respiratory Rate 14 14 Blood Pressure 151/61 H Pulse Oximetry 99 99 Oxygen Delivery Room Air Fraction of Inspired Oxygen 21 10/10/24 14:00 10/10/24 20:00 10/10/24 20:37 Temperature 98.4 F 97.6 F Pulse Rate 65 75 Respiratory Rate 18 14 Blood Pressure 151/55 H 170/63 H Pulse Oximetry 98 97 Oxygen Delivery Room Air Fraction of Inspired Oxygen 10/11/24 05:53 10/11/24 06:39 Temperature 98.1 F Pulse Rate 69 73 Respiratory Rate 16 Blood Pressure 190/70 H 178/63 H Pulse Oximetry 96 Oxygen Delivery Fraction of Inspired Oxygen Intake/Output Intake/Output: Intake & Output 10/08/24 10/09/24 10/10/24 10/11/24 23:59 23:59 23:59 23:59 Intake Total 1160 260 280 240 Output Total 3350 700 1050 850 [facility] -2190 -[phone] -770 -610 Meds/Results Medications: Active Medications Generic Name Dose Route Start Last Admin Trade Name Freq PRN Reason Stop Dose Admin Acetaminophen 650 mg 09/19/24 09:14 Acetaminophen 650 Mg Suppository RECTAL Q6H PRN Mild Pain (1-3) or Fever Acetaminophen 650 mg 09/19/24 10:07 10/09/24 21:29 Acetaminophen 325 Mg Tablet PO 650 mg Q6H PRN Administration Mild Pain (1-3) or Fever Amlodipine Besylate 10 mg 09/16/24 09:00 10/10/24 08:40 Amlodipine Besylate 10 Mg Tablet PO 10 mg DAILY KELIN Administration Artificial Tears 1 drop 09/15/24 23:37 Artificial Tears Ophth Soln 15 Ml Bottle EACH EYE QID PRN Dry Eye(S) Atorvastatin Calcium 10 mg 09/16/24 00:25 10/10/24 20:50 Atorvastatin 10 Mg Tablet PO 10 mg HS KELIN Administration Dextrose 12.5 gm 09/15/24 12:45 Dextrose 50% 25 Gm/50 Ml Syringe IV PUSH PRN PRN Hypoglycemia Protocol Famotidine 20 mg 10/08/24 21:00 10/10/24 20:50 Famotidine 20 Mg Tablet PO 20 mg Q12HR KELIN Administration Fluticasone Propionate 2 spray 09/22/24 16:37 Fluticasone Propionate 0.05% Na Spr 16 Gm Btl (*Bkc) NASAL DAILY PRN Nasal Congestion Furosemide 10 mg 10/07/24 17:00 10/10/24 17:33 Furosemide 10 Mg Tablet PO 10 mg BID KELIN Administration Glucagon 1 mg 09/15/24 12:45 Glucagon For Inj 1 Mg Vial IM PRN PRN Hypoglycemia Protocol Glucose 15 gm 09/15/24 12:45 Glucose Oral Gel 15 Gm Of Glucse In 37.5 Gm Tube PO PRN PRN Hypoglycemia Protocol Guaifenesin 1,200 mg 09/16/24 09:00 10/10/24 17:33 Guaifenesin 12 Hr 600 Mg Tabcr PO 1,200 mg BID KELIN Administration Hydralazine HCl 10 mg 10/02/24 08:51 10/11/24 05:56 Hydralazine Hcl 20 Mg/Ml Vial IV PUSH 10 mg Q4H PRN Administration Blood Pressure - High Dextrose 1,000 mls @ 100 mls/hr 09/15/24 12:45 Dextrose 5% 1,000 Ml IVPB PRN PRN Hypoglycemia Protocol Irbesartan 150 mg 10/08/24 09:00 10/10/24 08:40 Irbesartan 150 Mg Tablet PO 150 mg QAM KELIN Administration Isosorbide Mononitrate 30 mg 09/16/24 09:00 10/10/24 08:41 Isosorbide Mononitrate 30 Mg Tab.Er.24h PO 30 mg DAILY KELIN Administration Lactulose 20 gm 10/06/24 16:10 Lactulose 20 Gm/30 Ml Udc PO DAILY PRN Constipation Levalbuterol HCl 1.25 mg 09/22/24 08:41 Levalbuterol Neb 1.25 Mg/3 Ml INHALATION Q6HRT PRN Shortness Of Breath Lidocaine 2 patch 09/16/24 09:00 10/10/24 08:42 Lidocaine 5% Patch TOPICAL Not Given DAILY KELIN Memantine 5 mg 09/16/24 00:25 10/10/24 20:50 Memantine 5 Mg Tablet PO 5 mg Q12HR KELIN Administration Miscellaneous Information 1 each 10/04/24 00:01 Pregabalin Needs To Be Renewed Or It Will Automatically Discontinue. XX 11/03/24 00:00 CLARIFY KELIN Nebivolol 10 mg 10/08/24 09:00 10/10/24 08:40 Nebivolol Hcl 5 Mg Tablet PO 10 mg DAILY KELIN Administration Ondansetron HCl 4 mg 09/15/24 12:45 Ondansetron Inj 4 Mg/2 Ml Vial IV PUSH Q4H PRN Nausea Oxycodone/Acetaminophen 1 tablet 10/03/24 15:56 10/11/24 05:47 Oxycodone/Acetaminophen (*Crx) 5-325 Mg Tablet PO 1 tablet Q4H PRN Administration Pain Rated 7-10 Polyethylene Glycol 17 gm 09/15/24 23:37 Polyethylene Glycol 3350 17 Gm Powd.Pack PO DAILY PRN Constipation Potassium Chloride 10 meq 02/22/25 09:00 10/10/24 08:41 Potassium Chloride 10 Meq Er Tablet PO 10 meq DAILY [facility] Administration Primidone 100 mg 09/22/24 09:00 10/10/24 17:33 Primidone 50 Mg Tablet PO 100 mg TID [facility] Administration Rivaroxaban 20 mg 09/23/24 17:00 09/28/24 17:16 Rivaroxaban 20 Mg Tablet PO 20 mg DAILY@1700 [facility] Administration Senna 8.6 mg 10/06/24 16:10 10/10/24 08:41 Sennosides 8.6 Mg Tablet PO 8.6 mg DAILY [facility] Administration Senna/Docusate Sodium 2 tab 10/07/24 09:00 10/10/24 17:32 Senna/Docusate Sodium Tablet PO 2 tab BID [facility] Administration Sodium Chloride 2 spray 09/15/24 23:37 Saline 0.65% Gordo Soln 44 Ml Btl NASAL PRN PRN Congestion Sodium Chloride 1,000 mg 10/03/24 11:00 10/10/24 17:33 Sodium Chloride 500 Mg Tablet PO 1,000 mg TID [facility] Administration Vitamin B Complex 1 cap 09/16/24 09:00 10/10/24 08:41 Vitamin B Complex Capsule PO 1 cap QAM [facility] Administration Vitamin D 5,000 units 09/16/24 09:00 10/10/24 08:41 Cholecalciferol 5,000 Units Tablet PO 5,000 units DAILY [facility] Administration Vitamin E 800 unit 09/16/24 09:00 10/10/24 08:41 Vitamin E 400 Unit Capsule PO 800 unit DAILY [facility] Administration Zolpidem Tartrate 2.5 mg 10/06/24 21:00 10/10/24 20:56 Zolpidem Tartrate (*Crx) 2.5 Mg Tablet PO Not Given HS [facility] Radiology Results: ITS Impressions Head CT 09/15/24 11:48 IMPRESSION: 1. 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 No acute intracranial process. 2. Age-related changes including moderate diffuse on loss and mild scattered white matter hypoattenuation consistent with chronic small vessel ischemic disease. Brain MRI 09/18/24 08:50 IMPRESSION: 1. Age-related changes in the brain. No acute intracranial process. 2. 1.3 x 1.2 x 0.9 cm T2 hyperintense intrasellar mass versus cystic lesion. 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 There is been no evident change in appearance of the pituitary on multiple prior CT studies dating back to thousand 17 which would argue against malignancy/metastases. Would recommend obtaining pre and postcontrast pituitary protocol MRI to distinguish solid versus cystic which would aid in narrowing the differential. Sella Turcica MRI 09/19/24 12:56 IMPRESSION: 1. 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 2. 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 Lumbar Puncture Fluoroscopy 09/19/24 14:00 IMPRESSION: 1. Successful fluoro-guided lumbar puncture. Chest X-Ray 09/24/24 07:39 Impression: Central pulmonary venous congestive change. Labs Labs: Laboratory Results - last 24 hr 10/07/24 11:09 Serum Osmolality 243 L
[2024-10-11] MEDS: POTASSIUM CHLORIDE 10 MEQ ER TABLET PO (08:49)
[2024-10-11] MEDS: FUROSEMIDE 10 MG TABLET PO ×2 (08:49→16:32)
[2024-10-11] MEDS: ISOSORBIDE MONONITRATE 30 MG TAB.ER.24H PO (08:49)
[2024-10-11] MEDS: VITAMIN B COMPLEX CAPSULE 1 CAP PO (08:49)
[2024-10-11] MEDS: VITAMIN E 400 UNIT CAPSULE 800 UNIT PO (08:49)
[2024-10-11] MEDS: MEMANTINE 5 MG TABLET PO ×2 (08:49→20:10)
[2024-10-11] MEDS: IRBESARTAN 150 MG TABLET PO ×2 (08:50→11:46)
[2024-10-11] MEDS: CHOLECALCIFEROL 5,000 UNITS TABLET 5000 UNITS PO (08:50)
[2024-10-11] MEDS: SODIUM CHLORIDE 500 MG TABLET 1000 MG PO ×3 (08:50→16:32)
[2024-10-11] MEDS: SENNOSIDES 8.6 MG TABLET PO (08:50)
[2024-10-11] MEDS: NEBIVOLOL HCL 5 MG TABLET 10 MG PO (08:51)
[2024-10-11] MEDS: SENNA/DOCUSATE SODIUM TABLET 2 TAB PO ×2 (08:51→16:32)
[2024-10-11] MEDS: amLODIPine BESYLATE 10 MG TABLET PO (08:51)
[2024-10-11] MEDS: FAMOTIDINE 20 MG TABLET PO ×2 (08:52→20:10)
[2024-10-11] MEDS: guaiFENesin 12 HR 600 MG TABCR 1200 MG PO ×2 (08:52→16:32)
--- NOTE | 2024-10-11 09:41 | PM.PNNEP ---
Progress Note: A&P Assessment and Plan (1) Hyponatremia: Code(s): E87.1 - Hypo-osmolality and hyponatremia Status: Acute Assessment and Plan: the patient has chronic hyponatremia. This is likely due to multiple issues and occluding pulmonary disease, proton pump inhibitor intake, poor osmolar intake with more generous fluid intake and in the past narcotics and a new development with the multiple cerebellar strokes.. Her baseline sodium seems to run in the high 120s and the low 130s. urine sodium is 104 Serum protein electrophoresis, urine and serum osmolality is are all pending. TSH is a little bit on the low side. Will check a T4. This should be drawn in a few minutes. cortisol level is a little bit low. The cosyntropin test was normal. the patient was on pantoprazole but not on antidepressants, narcotics, or diuretics. patient has no history of cancer chest x-ray has no mass MRI of the brain does show some Mass versus cystic lesion. I am not sure if this might contribute to the low sodium. 3/ Na 131 on salt tabs 10/03 Na 125 3/15 Na 113 still on salt tabs. placed on fluid restriction and furosemide 10/08 Na 115 given some 3% saline then 120 3/17 Na 120 then 124 3/18 Na 127 The patient is off the pantoprazole. The patient is on sodium chloride tablets and furosemide as well as fluid restriction. await today's sodium continue other measures. (2) AMS (altered mental status): Code(s): R41.82 - Altered mental status, unspecified Status: Acute Assessment and Plan: This seems to wax and wane a bit. (3) Dysphagia: Qualifiers: Dysphagia type: esophageal phase Qualified Code(s): R13.19 - Other dysphagia Code(s): R13.10 - Dysphagia, unspecified Status: Acute Assessment and Plan: patient is getting speech therapy (4) Obstructive sleep apnea: Code(s): G47.33 - Obstructive sleep apnea (adult) (pediatric) Status: Acute Assessment and Plan: the patient does not tolerate a CPAP (5) HTN (hypertension): Qualifiers: Hypertension type: essential hypertension Qualified Code(s): I10 - Essential (primary) hypertension Code(s): I10 - Essential (primary) hypertension Status: Chronic Assessment and Plan: her blood pressure is ranging 150-180 She is on amlodipine, irbesartan 150, Nebivolol 10 and p.r.n. hydralazine. pt cannot have a diuiretic due to hyponatremia. changed losartan to irb and has had 4 doses.. will increase irb to 300. (6) HLD (hyperlipidemia): Qualifiers: Hyperlipidemia type: unspecified Qualified Code(s): E78.5 - Hyperlipidemia, unspecified Code(s): E78.5 - Hyperlipidemia, unspecified Status: Chronic Assessment and Plan: the patient is on atorvastatin (7) CVA (cerebral vascular accident): Code(s): I63.9 - Cerebral infarction, unspecified Status: Acute Assessment and Plan: neurology is seeing the patient Patient also has a parasellar mass. Subjective Date/time seen: 10/11/24 09:41 Interval history: Patient is alert. She looks about the same she did yesterday morning. Yesterday afternoon apparently she was better. Labs are pending Exam Narrative: WDWN Female in NAD skin no rash head ncat lungs clear to auscultation cor reg no rub or gallop abd BS+ nontender and soft ext no edema Objective Data Vital Signs Vital Signs: Vital Signs - 24 hr 10/10/24 14:00 10/10/24 20:00 10/10/24 20:37 Temperature 98.4 F 97.6 F Pulse Rate 65 75 Respiratory Rate 18 14 Blood Pressure 151/55 H 170/63 H Pulse Oximetry 98 97 Oxygen Delivery Room Air 10/11/24 05:53 10/11/24 06:39 10/11/24 08:45 Temperature 98.1 F 97.5 F L Pulse Rate 69 73 86 Respiratory Rate 16 18 Blood Pressure 190/70 H 178/63 H 184/65 H Pulse Oximetry 96 99 Oxygen Delivery 10/11/24 08:51 Temperature Pulse Rate 86 Respiratory Rate Blood Pressure Pulse Oximetry Oxygen Delivery Intake/Output Intake/Output: Intake & Output 10/08/24 10/09/24 10/10/24 10/11/24 23:59 23:59 23:59 23:59 Intake Total 1160 260 280 480 Output Total 3350 700 1050 850 Balance -2190 -440 -770 -370 Meds/Results Medications: Active Medications Generic Name Dose Route Start Last Admin Trade Name Freq PRN Reason Stop Dose Admin Acetaminophen 650 mg 09/19/24 09:14 Acetaminophen 650 Mg Suppository RECTAL Q6H PRN Mild Pain (1-3) or Fever Acetaminophen 650 mg 09/19/24 10:07 10/09/24 21:29 Acetaminophen 325 Mg Tablet PO 650 mg Q6H PRN Administration Mild Pain (1-3) or Fever Amlodipine Besylate 10 mg 09/16/24 09:00 10/11/24 08:51 Amlodipine Besylate 10 Mg Tablet PO 10 mg DAILY KELIN Administration Artificial Tears 1 drop 09/15/24 23:37 Artificial Tears Ophth Soln 15 Ml Bottle EACH EYE QID PRN Dry Eye(S) Atorvastatin Calcium 10 mg 09/16/24 00:25 10/10/24 20:50 Atorvastatin 10 Mg Tablet PO 10 mg HS KELIN Administration Dextrose 12.5 gm 09/15/24 12:45 Dextrose 50% 25 Gm/50 Ml Syringe IV PUSH PRN PRN Hypoglycemia Protocol Famotidine 20 mg 10/08/24 21:00 10/11/24 08:52 Famotidine 20 Mg Tablet PO 20 mg Q12HR KELIN Administration Fluticasone Propionate 2 spray 09/22/24 16:37 Fluticasone Propionate 0.05% Na Spr 16 Gm Btl (*Bkc) NASAL DAILY PRN Nasal Congestion Furosemide 10 mg 10/07/24 17:00 10/11/24 08:49 Furosemide 10 Mg Tablet PO 10 mg BID KELIN Administration Glucagon 1 mg 09/15/24 12:45 Glucagon For Inj 1 Mg Vial IM PRN PRN Hypoglycemia Protocol Glucose 15 gm 09/15/24 12:45 Glucose Oral Gel 15 Gm Of Glucse In 37.5 Gm Tube PO PRN PRN Hypoglycemia Protocol Guaifenesin 1,200 mg 09/16/24 09:00 10/11/24 08:52 Guaifenesin 12 Hr 600 Mg Tabcr PO 1,200 mg BID KELIN Administration Hydralazine HCl 10 mg 10/02/24 08:51 10/11/24 05:56 Hydralazine Hcl 20 Mg/Ml Vial IV PUSH 10 mg Q4H PRN Administration Blood Pressure - High Dextrose 1,000 mls @ 100 mls/hr 09/15/24 12:45 Dextrose 5% 1,000 Ml IVPB PRN PRN Hypoglycemia Protocol Irbesartan 150 mg 10/08/24 09:00 10/11/24 08:50 Irbesartan 150 Mg Tablet PO 150 mg QAM KELIN Administration Isosorbide Mononitrate 30 mg 09/16/24 09:00 10/11/24 08:49 Isosorbide Mononitrate 30 Mg Tab.Er.24h PO 30 mg DAILY KELIN Administration Lactulose 20 gm 10/06/24 16:10 Lactulose 20 Gm/30 Ml Udc PO DAILY PRN Constipation Levalbuterol HCl 1.25 mg 09/22/24 08:41 Levalbuterol Neb 1.25 Mg/3 Ml INHALATION Q6HRT PRN Shortness Of Breath Lidocaine 2 patch 09/16/24 09:00 10/10/24 08:42 Lidocaine 5% Patch TOPICAL Not Given DAILY [facility] Memantine 5 mg 09/16/24 00:25 10/11/24 08:49 Memantine 5 Mg Tablet PO 5 mg Q12HR KELIN Administration Miscellaneous Information 1 each 10/04/24 00:01 Pregabalin Needs To Be Renewed Or It Will Automatically Discontinue. XX 11/03/24 00:00 CLARIFY [facility] Nebivolol 10 mg 10/08/24 09:00 10/11/24 08:51 Nebivolol Hcl 5 Mg Tablet PO 10 mg DAILY [facility] Administration Ondansetron HCl 4 mg 09/15/24 12:45 Ondansetron Inj 4 Mg/2 Ml Vial IV PUSH Q4H PRN Nausea Oxycodone/Acetaminophen 1 tablet 10/03/24 15:56 10/11/24 05:47 Oxycodone/Acetaminophen (*Crx) 5-325 Mg Tablet PO 1 tablet Q4H PRN Administration Pain Rated 7-10 Polyethylene Glycol 17 gm 09/15/24 23:37 Polyethylene Glycol 3350 17 Gm Powd.Pack PO DAILY PRN Constipation Potassium Chloride 10 meq 09/16/24 09:00 10/11/24 08:49 Potassium Chloride 10 Meq Er Tablet PO 10 meq DAILY [facility] Administration Rivaroxaban 20 mg 09/23/24 17:00 09/28/24 17:16 Rivaroxaban 20 Mg Tablet PO 20 mg DAILY@1700 KELIN Administration Senna 8.6 mg 10/06/24 16:10 10/11/24 08:50 Sennosides 8.6 Mg Tablet PO 8.6 mg DAILY [facility] Administration Senna/Docusate Sodium 2 tab 10/07/24 09:00 10/11/24 08:51 Senna/Docusate Sodium Tablet PO 2 tab BID KELIN Administration Sodium Chloride 2 spray 09/15/24 23:37 Saline 0.65% Gordo Soln 44 Ml Btl NASAL PRN PRN Congestion Sodium Chloride 1,000 mg 10/03/24 11:00 10/11/24 08:50 Sodium Chloride 500 Mg Tablet PO 1,000 mg TID KELIN Administration Vitamin B Complex 1 cap 09/16/24 09:00 10/11/24 08:49 Vitamin B Complex Capsule PO 1 cap QAM KELIN Administration Vitamin D 5,000 units 09/16/24 09:00 10/11/24 08:50 Cholecalciferol 5,000 Units Tablet PO 5,000 units DAILY KELIN Administration Vitamin E 800 unit 09/16/24 09:00 10/11/24 08:49 Vitamin E 400 Unit Capsule PO 800 unit DAILY KELIN Administration Zolpidem Tartrate 2.5 mg 10/11/24 08:15 Zolpidem Tartrate (*Crx) 2.5 Mg Tablet PO HS PRN Insomnia Radiology Results: ITS Impressions Head CT 09/15/24 11:48 IMPRESSION: 1. 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 No acute intracranial process. 2. Age-related changes including moderate diffuse on loss and mild scattered white matter hypoattenuation consistent with chronic small vessel ischemic disease. Brain MRI 09/18/24 08:50 IMPRESSION: 1. Age-related changes in the brain. No acute intracranial process. 2. 1.3 x 1.2 x 0.9 cm T2 hyperintense intrasellar mass versus cystic lesion. 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 There is been no evident change in appearance of the pituitary on multiple prior CT studies dating back to thousand 17 which would argue against malignancy/metastases. Would recommend obtaining pre and postcontrast pituitary protocol MRI to distinguish solid versus cystic which would aid in narrowing the differential. Sella Turcica MRI 09/19/24 12:56 IMPRESSION: 1. 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 2. 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 Lumbar Puncture Fluoroscopy 09/19/24 14:00 IMPRESSION: 1. Successful fluoro-guided lumbar puncture. Chest X-Ray 09/24/24 07:39 Impression: Central pulmonary venous congestive change. Labs Labs: Laboratory Results - last 24 hr 10/07/24 11:09 Serum Osmolality 243 L
--- NOTE | 2024-10-11 10:11 | PM.PNNEP ---
Progress Note: A&P Assessment and Plan (1) Hyponatremia: Code(s): E87.1 - Hypo-osmolality and hyponatremia Status: Acute Assessment and Plan: the patient has chronic hyponatremia. This is likely due to multiple issues and occluding pulmonary disease, proton pump inhibitor intake, poor osmolar intake with more generous fluid intake and in the past narcotics and a new development with the multiple cerebellar strokes.. Her baseline sodium seems to run in the high 120s and the low 130s. urine sodium is 104 Serum protein electrophoresis, urine and serum osmolality is are all pending. TSH is a little bit on the low side. Will check a T4. This should be drawn in a few minutes. cortisol level is a little bit low. The cosyntropin test was normal. the patient was on pantoprazole but not on antidepressants, narcotics, or diuretics. patient has no history of cancer chest x-ray has no mass MRI of the brain does show some Mass versus cystic lesion. I am not sure if this might contribute to the low sodium. 3/ Na 131 on salt tabs 10/03 Na 125 3/15 Na 113 still on salt tabs. placed on fluid restriction and furosemide 10/08 Na 115 given some 3% saline then 120 3/17 Na 120 then 124 3/18 Na 127 The patient is off the pantoprazole. The patient is on sodium chloride tablets and furosemide as well as fluid restriction. await today's sodium continue other measures. (2) AMS (altered mental status): Code(s): R41.82 - Altered mental status, unspecified Status: Acute Assessment and Plan: This seems to wax and wane a bit. (3) Dysphagia: Qualifiers: Dysphagia type: esophageal phase Qualified Code(s): R13.19 - Other dysphagia Code(s): R13.10 - Dysphagia, unspecified Status: Acute Assessment and Plan: patient is getting speech therapy (4) Obstructive sleep apnea: Code(s): G47.33 - Obstructive sleep apnea (adult) (pediatric) Status: Acute Assessment and Plan: the patient does not tolerate a CPAP (5) HTN (hypertension): Qualifiers: Hypertension type: essential hypertension Qualified Code(s): I10 - Essential (primary) hypertension Code(s): I10 - Essential (primary) hypertension Status: Chronic Assessment and Plan: her blood pressure is ranging 150-180 She is on amlodipine, irbesartan 150, Nebivolol 10 and p.r.n. hydralazine. pt cannot have a diuiretic due to hyponatremia. changed losartan to irb and has had 4 doses.. will increase irb to 300. (6) HLD (hyperlipidemia): Qualifiers: Hyperlipidemia type: unspecified Qualified Code(s): E78.5 - Hyperlipidemia, unspecified Code(s): E78.5 - Hyperlipidemia, unspecified Status: Chronic Assessment and Plan: the patient is on atorvastatin (7) CVA (cerebral vascular accident): Code(s): I63.9 - Cerebral infarction, unspecified Status: Acute Assessment and Plan: neurology is seeing the patient Patient also has a parasellar mass. Subjective Date/time seen: 10/11/24 10:11 Exam Narrative: WDWN Female in NAD skin no rash head ncat lungs clear to auscultation cor reg no rub or gallop abd BS+ nontender and soft ext no edema Objective Data Vital Signs Vital Signs: Vital Signs - 24 hr 10/10/24 14:00 10/10/24 20:00 10/10/24 20:37 Temperature 98.4 F 97.6 F Pulse Rate 65 75 Respiratory Rate 18 14 Blood Pressure 151/55 H 170/63 H Pulse Oximetry 98 97 Oxygen Delivery Room Air 10/11/24 05:53 10/11/24 06:39 10/11/24 08:45 Temperature 98.1 F 97.5 F L Pulse Rate 69 73 86 Respiratory Rate 16 18 Blood Pressure 190/70 H 178/63 H 184/65 H Pulse Oximetry 96 99 Oxygen Delivery 10/11/24 08:51 Temperature Pulse Rate 86 Respiratory Rate Blood Pressure Pulse Oximetry Oxygen Delivery Intake/Output Intake/Output: Intake & Output 10/08/24 10/09/24 10/10/24 10/11/24 23:59 23:59 23:59 23:59 Intake Total 1160 260 280 480 Output Total 5360 700 1050 415 Balance -2190 -440 -770 -370 Meds/Results Medications: Active Medications Generic Name Dose Route Start Last Admin Trade Name Freq PRN Reason Stop Dose Admin Acetaminophen 650 mg 09/19/24 09:14 Acetaminophen 650 Mg Suppository RECTAL Q6H PRN Mild Pain (1-3) or Fever Acetaminophen 650 mg 09/19/24 10:07 10/09/24 21:29 Acetaminophen 325 Mg Tablet PO 650 mg Q6H PRN Administration Mild Pain (1-3) or Fever Amlodipine Besylate 10 mg 09/16/24 09:00 10/11/24 08:51 Amlodipine Besylate 10 Mg Tablet PO 10 mg DAILY KELIN Administration Artificial Tears 1 drop 09/15/24 23:37 Artificial Tears Ophth Soln 15 Ml Bottle EACH EYE QID PRN Dry Eye(S) Atorvastatin Calcium 10 mg 09/16/24 00:25 10/10/24 20:50 Atorvastatin 10 Mg Tablet PO 10 mg HS KELIN Administration Dextrose 12.5 gm 09/15/24 12:45 Dextrose 50% 25 Gm/50 Ml Syringe IV PUSH PRN PRN Hypoglycemia Protocol Famotidine 20 mg 10/08/24 21:00 10/11/24 08:52 Famotidine 20 Mg Tablet PO 20 mg Q12HR KELIN Administration Fluticasone Propionate 2 spray 09/22/24 16:37 Fluticasone Propionate 0.05% Na Spr 16 Gm Btl (*Bkc) NASAL DAILY PRN Nasal Congestion Furosemide 10 mg 10/07/24 17:00 10/11/24 08:49 Furosemide 10 Mg Tablet PO 10 mg BID KELIN Administration Glucagon 1 mg 09/15/24 12:45 Glucagon For Inj 1 Mg Vial IM PRN PRN Hypoglycemia Protocol Glucose 15 gm 09/15/24 12:45 Glucose Oral Gel 15 Gm Of Glucse In 37.5 Gm Tube PO PRN PRN Hypoglycemia Protocol Guaifenesin 1,200 mg 09/16/24 09:00 10/11/24 08:52 Guaifenesin 12 Hr 600 Mg Tabcr PO 1,200 mg BID KELIN Administration Hydralazine HCl 10 mg 10/02/24 08:51 10/11/24 05:56 Hydralazine Hcl 20 Mg/Ml Vial IV PUSH 10 mg Q4H PRN Administration Blood Pressure - High Dextrose 1,000 mls @ 100 mls/hr 09/15/24 12:45 Dextrose 5% 1,000 Ml IVPB PRN PRN Hypoglycemia Protocol Irbesartan 300 mg 10/12/24 09:00 Irbesartan 150 Mg Tablet PO QAM KELIN Isosorbide Mononitrate 30 mg 09/16/24 09:00 10/11/24 08:49 Isosorbide Mononitrate 30 Mg Tab.Er.24h PO 30 mg DAILY KELIN Administration Lactulose 20 gm 10/06/24 16:10 Lactulose 20 Gm/30 Ml Udc PO DAILY PRN Constipation Levalbuterol HCl 1.25 mg 09/22/24 08:41 Levalbuterol Neb 1.25 Mg/3 Ml INHALATION Q6HRT PRN Shortness Of Breath Lidocaine 2 patch 09/16/24 09:00 10/10/24 08:42 Lidocaine 5% Patch TOPICAL Not Given DAILY [facility] Memantine 5 mg 09/16/24 00:25 10/11/24 08:49 Memantine 5 Mg Tablet PO 5 mg Q12HR KELIN Administration Miscellaneous Information 1 each 10/04/24 00:01 Pregabalin Needs To Be Renewed Or It Will Automatically Discontinue. XX 11/03/24 00:00 CLARIFY KELIN Nebivolol 10 mg 10/08/24 09:00 10/11/24 08:51 Nebivolol Hcl 5 Mg Tablet PO 10 mg DAILY [facility]ELIN Administration Ondansetron HCl 4 mg 09/15/24 12:45 Ondansetron Inj 4 Mg/2 Ml Vial IV PUSH Q4H PRN Nausea Oxycodone/Acetaminophen 1 tablet 10/03/24 15:56 10/11/24 05:47 Oxycodone/Acetaminophen (*Crx) 5-325 Mg Tablet PO 1 tablet Q4H PRN Administration Pain Rated 7-10 Polyethylene Glycol 17 gm 09/15/24 23:37 Polyethylene Glycol 3350 17 Gm Powd.Pack PO DAILY PRN Constipation Potassium Chloride 10 meq 09/16/24 09:00 10/11/24 08:49 Potassium Chloride 10 Meq Er Tablet PO 10 meq DAILY KELIN Administration Rivaroxaban 20 mg 09/23/24 17:00 09/28/24 17:16 Rivaroxaban 20 Mg Tablet PO 20 mg DAILY@1700 KELIN Administration Senna 8.6 mg 10/06/24 16:10 10/11/24 08:50 Sennosides 8.6 Mg Tablet PO 8.6 mg DAILY KELIN Administration Senna/Docusate Sodium 2 tab 10/07/24 09:00 10/11/24 08:51 Senna/Docusate Sodium Tablet PO 2 tab BID KELIN Administration Sodium Chloride 2 spray 09/15/24 23:37 Saline 0.65% Gordo Soln 44 Ml Btl NASAL PRN PRN Congestion Sodium Chloride 1,000 mg 10/03/24 11:00 10/11/24 08:50 Sodium Chloride 500 Mg Tablet PO 1,000 mg TID KELIN Administration Vitamin B Complex 1 cap 09/16/24 09:00 10/11/24 08:49 Vitamin B Complex Capsule PO 1 cap QAM KELIN Administration Vitamin D 5,000 units 09/16/24 09:00 10/11/24 08:50 Cholecalciferol 5,000 Units Tablet PO 5,000 units DAILY KELIN Administration Vitamin E 800 unit 09/16/24 09:00 10/11/24 08:49 Vitamin E 400 Unit Capsule PO 800 unit DAILY KELIN Administration Zolpidem Tartrate 2.5 mg 10/11/24 08:15 Zolpidem Tartrate (*Crx) 2.5 Mg Tablet PO HS PRN Insomnia Radiology Results: ITS Impressions Head CT 09/15/24 11:48 IMPRESSION: 1. 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 No acute intracranial process. 2. Age-related changes including moderate diffuse on loss and mild scattered white matter hypoattenuation consistent with chronic small vessel ischemic disease. Brain MRI 09/18/24 08:50 IMPRESSION: 1. Age-related changes in the brain. No acute intracranial process. 2. 1.3 x 1.2 x 0.9 cm T2 hyperintense intrasellar mass versus cystic lesion. 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 There is been no evident change in appearance of the pituitary on multiple prior CT studies dating back to thousand 17 which would argue against malignancy/metastases. Would recommend obtaining pre and postcontrast pituitary protocol MRI to distinguish solid versus cystic which would aid in narrowing the differential. Sella Turcica MRI 09/19/24 12:56 IMPRESSION: 1. 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 2. 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 Lumbar Puncture Fluoroscopy 09/19/24 14:00 IMPRESSION: 1. Successful fluoro-guided lumbar puncture. Chest X-Ray 09/24/24 07:39 Impression: Central pulmonary venous congestive change. Labs Labs: Laboratory Results - last 24 hr 10/07/24 11:09 Serum Osmolality 243 L
[2024-10-11 10:58] LABS: Anion Gap 11 mmol/L (4-12); Blood Urea Nitrogen 13 mg/dL (7-17); Calcium 9.3 mg/dL (8.4-10.2); Carbon Dioxide 23 mmol/L (22-30); Chloride 93 mmol/L (98-107); Estimated CRCL calculation 109 ml/min; Estimated Glomerular Filt Rate > 60; Glucose 96 mg/dL (65-110); Magnesium 1.6 mg/dL (1.6-2.3); Potassium 4.5 mmol/L (3.4-5.0); Sodium 127 mmol/L (137-145)
[2024-10-11 15:46] LABS: Sodium 127 mmol/L (137-145)
[2024-10-11 15:58] LABS: Osmolality, Urine 317 mOsm/kg (50-1200)
[2024-10-11] MEDS: ATORVASTATIN 10 MG TABLET PO (20:10)
[2024-10-12] MEDS: oxyCODONE/ACETAMINOPHEN (*CRX) 5-325 MG TABLET 1 TABLET PO ×3 (01:39→11:02)
[2024-10-12 04:59] VITALS: BP 164/69; PULSE 74; RESP 14; TEMP 36.7; O2SAT 97
[2024-10-12 05:53] LABS: Anion Gap 9 mmol/L (4-12); Blood Urea Nitrogen 14 mg/dL (7-17); Calcium 8.7 mg/dL (8.4-10.2); Carbon Dioxide 26 mmol/L (22-30); Chloride 92 mmol/L (98-107); Estimated CRCL calculation 100 ml/min; Estimated Glomerular Filt Rate > 60; Glucose 99 mg/dL (65-110); Magnesium 1.5 mg/dL (1.6-2.3); Phosphorus 4.1 mg/dL (2.5-4.5); Potassium 4.3 mmol/L (3.4-5.0); Sodium 127 mmol/L (137-145)
--- NOTE | 2024-10-12 08:14 | PM.IMPN ---
Progress Note: A&P Assessment and Plan (1) Altered mental status: Code(s): R41.82 - Altered mental status, unspecified Status: Acute (2) Sepsis: Qualifiers: Sepsis acute organ dysfunction status: unspecified Sepsis type: methicillin resistant Staphylococcus aureus Qualified Code(s): A41.02 - Sepsis due to Methicillin resistant Staphylococcus aureus Code(s): A41.9 - Sepsis, unspecified organism Status: Acute (3) Anxiety: Code(s): F41.9 - Anxiety disorder, unspecified Status: Chronic Plan AMS (altered mental status): Code(s): R41.82 - Altered mental status, unspecified Status: Acute Assessment and Plan: Patient presents with altered mental status. She has a normal baseline AOx3 with slow speech. 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 Patient presented with fevers on 09/15. LP performed 09/19 showing no RBCs and 1 WBCs with mostly lymphocytes. Gram stain showing rare WBC and no organisms. Glucose 97 and protein 51. Viral and bacterial meningitis unlikely but she was on abx prior to LP being performed so could be partially treated meningitis. Consider AMS related to polypharmacy. Consider catatonia. Symptoms seem to wax and wane - delirium? CSF HSV PCR negative. Acyclovir stopped. CSF bacterial cultures were NOT sent to [facility] (fungal cx sent); unable to determine if partially treated meningitis but felt less likely. Stop IV abx and monitor Primidone and Baclofen were cuts back. 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 Patient has dysphagia likely resulting from previous multiple stroke I had a long and thought discussions with patient's family: patient's and daughter about prognosis and goals of care, Patient daughter down man request to start feeding tube for G-tube consult GI for tube feeding placement, plans bed tube on Wednesday. Will place NG tube for feeding today 09/30 Patient feels better today, appetite is improving, mental status improving, patient declines NG tube feeding. Waiting patient family to make decision about tube feeding 10/01 Patient is lethargic, unable to engage conversation or follow commands, patient cannot recall her conversation with the care coordinators. Patient has a multiple chronic infarct on MRI, MRI also showed moderate diffuse cerebral volume loss. Patient may have dementia related age and multiple stroke. Current mental status is possible baseline Appreciate neurologist consultation, discontinue baclofen and primidone 10/11 Now patient alert oriented x3, back to baseline. 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 p.o. per neurologist recommendation Discontinue furosemide 20 mg b.i.d. p.o. Received IV fluid with normal saline 75 mL/hour Patient cannot tolerate diet well, Sodium dropped to 113 10/07 Appreciate machine shorthand teacher consultation. Start hypertonic saline per machine shorthand teacher Sodium is trending up 120. c/w sodium chloride tablets and furosemide as well as fluid restriction. check Na and will give more 3% saline if it is still not rising. 10/09 Sodium is trending up, and stable at 127 for three days, continue Lasix 10 mg b.i.d. p.o., sodium chloride 1 g t.i.d. p.o. per machine shorthand teacher recommendation 10/12 Dysphagia Patient does not have appetite and also had trouble with swallowing Patient ate a little today, patient cannot have enough oral intake to support life Likely secondary to dementia,, possible ischemic dementia, MRI showed multiple strokes before and also brain malacia Patient does not want NG tube feeding But patient is able to eat and drink her function seems improving. no need to provide tube feeding, if she continue to improve Speech evaluated patient, patient is able to take regular diet 10/10 Started PT/OT/ST. ST recommended dropping her from Level 5 to Level 4 Pureed diet which was done. Discussed with neurology. He recommended continuing to wean primidone every 7 days. Scheduled IV Ativan for possible catatonia. Did have some improvement yesterday but worse today. ABG ordered but this was okay. back off on Ativan. Stop IV abx. Insomnia Provide Ambien 2.5 mg q.h.s prn hold now because of worse mental status after taking ambien . Constipation Start Senokot S2 tabs b.i.d. p.o. has BM ranularly Sepsis: Qualifiers: Sepsis acute organ dysfunction status: unspecified Sepsis type: sepsis due to unspecified organism Qualified Code(s): A41.9 - Sepsis, unspecified organism Code(s): A41.9 - Sepsis, unspecified organism Status: Acute Assessment and Plan: Noted on admission with fevers, AMS and elevated white count. UTI has been ruled out. Blood cultures negative. Chest x-ray was clear on admission and repeat CXR clear on 09/18. No CSF cultures sent to [facility]. Stop abx and monitor. White blood cell within normal limit, patient is afebrile, resolved Atrial fibrillation with RVR: Code(s): I48.91 - Unspecified atrial fibrillation Status: Acute Assessment and Plan: Review of chart showing she has AFib and was on Xarelto on prior admissions. In the paper chart, the papers from the [facility] sheets only had 5 of 6 sheets. Suspect the 6th sheet listed additional medications (including Xarelto). RN will call [facility] to get a complete list of patient's medications. Restarted Xarelto Hypertension: Code(s): I10 - Essential (primary) hypertension Status: Acute Assessment and Plan: Patient's blood pressure was reviewed on 09/26 Blood pressure with wide fluctuations. continue to monitor for now Acute and chronic respiratory failure: Qualifiers: Respiratory failure complication: hypoxia Qualified Code(s): J96.21 - Acute and chronic respiratory failure with hypoxia Code(s): J96.20 - Acute and chronic respiratory failure, unspecified whether with hypoxia or hypercapnia Status: Acute Assessment and Plan: ABG in ER - pH of 7.46, pCO2 33.0, PO2 67.4, bicarb 23.0, O2 94.6%. Patient presumably wears oxygen at the facility but has been weaned to room air here Continue CPAP at night and with naps as she allows. Now patient is still on room air Obstructive sleep apnea: Code(s): G47.33 - Obstructive sleep apnea (adult) (pediatric) Status: Acute Assessment and Plan: Continue CPAP at night and with naps as she allows. UTI (urinary tract infection): Qualifiers: Hematuria presence: without hematuria Urinary tract infection type: acute cystitis Qualified Code(s): N30.00 - Acute cystitis without hematuria Code(s): N39.0 - Urinary tract infection, site not specified Status: Resolved Assessment and Plan: UA is consistent with UTI. UCx collected. 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 Abx started. BCx and UCx negative. UTI ruled out. She is having urine retention and unable to tolerate the Delarosa removed 09/25/24. Plan for discharge with Delarosa Tachycardia: Code(s): R00.0 - Tachycardia, unspecified Status: Resolved Assessment and Plan: Probably related to above. Heart rate better controlled. No alarms by tele so tele stopped. Resolved Patient condition continues to improve, plan discharge patient back to [facility] today Subjective Date/time seen: 10/12/24 08:14 Interval history: Saw examined patient today. Mental status improving, patient has chronic back pain. Otherwise patient feels better patient is alert, and oriented x3, able follow commands. Labs reviewed, sodium is stable today 127 today Exam Narrative: GENERAL: Pleasant, in no acute distress. Well-nourished. - EYES: EOMI. Anicteric. - HENT: Moist mucous membranes. - LUNGS: Clear to auscultation bilaterally, no wheezing, rhonchi, or rales. - CARDIOVASCULAR: Regular rate and rhythm. No murmur. No JVD. - ABDOMEN: Soft, non-tender and non-distended. No palpable masses. 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 Non-tender. - NEUROLOGIC: No new focal neurological deficits. Able to move and hold upper extremities - PSYCHIATRIC: Awake, Alert and oriented x 3. Appropriate mood and affect. - SKIN: No rashes or lesions. Warm. - LYMPH: No cervical lymphadenopathy. Objective Data Vital Signs Vital Signs: Vital Signs - 24 hr 10/11/24 08:43 10/11/24 08:45 10/11/24 08:51 Temperature 97.5 F L Pulse Rate 86 86 86 Respiratory Rate 18 18 Blood Pressure 184/65 H Pulse Oximetry 99 99 Oxygen Delivery Room Air Fraction of Inspired Oxygen 21 10/11/24 11:27 10/11/24 14:00 10/11/24 20:00 Temperature 97.7 F 97.9 F Pulse Rate 92 78 Respiratory Rate 16 18 Blood Pressure 156/61 H 158/64 H Pulse Oximetry 97 98 Oxygen Delivery Room Air Fraction of Inspired Oxygen 10/11/24 20:17 10/12/24 04:59 Temperature 97.7 F 98.0 F Pulse Rate 72 74 Respiratory Rate 16 14 Blood Pressure 154/58 H 164/69 H Pulse Oximetry 97 97 Oxygen Delivery Fraction of Inspired Oxygen Intake/Output Intake/Output: Intake & Output 10/09/24 10/10/24 10/11/24 10/12/24 23:59 23:59 23:59 23:59 Intake Total 260 280 850 240 Output Total 700 1050 850 450 Balance -440 -770 0 -210 Meds/Results Medications: Active Medications Generic Name Dose Route Start Last Admin Trade Name Freq PRN Reason Stop Dose Admin Acetaminophen 650 mg 09/19/24 09:14 Acetaminophen 650 Mg Suppository RECTAL Q6H PRN Mild Pain (1-3) or Fever Acetaminophen 650 mg 09/19/24 10:07 10/09/24 21:29 Acetaminophen 325 Mg Tablet PO 650 mg Q6H PRN Administration Mild Pain (1-3) or Fever Amlodipine Besylate 10 mg 09/16/24 09:00 10/11/24 08:51 Amlodipine Besylate 10 Mg Tablet PO 10 mg DAILY KELIN Administration Artificial Tears 1 drop 09/15/24 23:37 Artificial Tears Ophth Soln 15 Ml Bottle EACH EYE QID PRN Dry Eye(S) Atorvastatin Calcium 10 mg 09/16/24 00:25 10/11/24 20:10 Atorvastatin 10 Mg Tablet PO 10 mg HS KELIN Administration Dextrose 12.5 gm 09/15/24 12:45 Dextrose 50% 25 Gm/50 Ml Syringe IV PUSH PRN PRN Hypoglycemia Protocol Famotidine 20 mg 10/08/24 21:00 10/11/24 20:10 Famotidine 20 Mg Tablet PO 20 mg Q12HR KELIN Administration Fluticasone Propionate 2 spray 09/22/24 16:37 Fluticasone Propionate 0.05% Na Spr 16 Gm Btl (*Bkc) NASAL DAILY PRN Nasal Congestion Furosemide 10 mg 10/07/24 17:00 10/11/24 16:32 Furosemide 10 Mg Tablet PO 10 mg BID KELIN Administration Glucagon 1 mg 09/15/24 12:45 Glucagon For Inj 1 Mg Vial IM PRN PRN Hypoglycemia Protocol Glucose 15 gm 09/15/24 12:45 Glucose Oral Gel 15 Gm Of Glucse In 37.5 Gm Tube PO PRN PRN Hypoglycemia Protocol Guaifenesin 1,200 mg 09/16/24 09:00 10/11/24 16:32 Guaifenesin 12 Hr 600 Mg Tabcr PO 1,200 mg BID KELIN Administration Hydralazine HCl 10 mg 10/02/24 08:51 10/11/24 05:56 Hydralazine Hcl 20 Mg/Ml Vial IV PUSH 10 mg Q4H PRN Administration Blood Pressure - High Dextrose 1,000 mls @ 100 mls/hr 09/15/24 12:45 Dextrose 5% 1,000 Ml IVPB PRN PRN Hypoglycemia Protocol Irbesartan 300 mg 10/12/24 09:00 Irbesartan 150 Mg Tablet PO QAM KELIN Isosorbide Mononitrate 30 mg 09/16/24 09:00 10/11/24 08:49 Isosorbide Mononitrate 30 Mg Tab.Er.24h PO 30 mg DAILY KELIN Administration Lactulose 20 gm 10/06/24 16:10 Lactulose 20 Gm/30 Ml Udc PO DAILY PRN Constipation Levalbuterol HCl 1.25 mg 09/22/24 08:41 Levalbuterol Neb 1.25 Mg/3 Ml INHALATION Q6HRT PRN Shortness Of Breath Lidocaine 2 patch 09/16/24 09:00 10/11/24 10:22 Lidocaine 5% Patch TOPICAL Not Given DAILY KELIN Memantine 5 mg 09/16/24 00:25 10/11/24 20:10 Memantine 5 Mg Tablet PO 5 mg Q12HR KELIN Administration Miscellaneous Information 1 each 10/04/24 00:01 10/12/24 07:36 Pregabalin Needs To Be Renewed Or It Will Automatically Discontinue. XX 11/03/24 00:00 Not Given CLARIFY KELIN Nebivolol 10 mg 10/08/24 09:00 10/11/24 08:51 Nebivolol Hcl 5 Mg Tablet PO 10 mg DAILY KELIN Administration Ondansetron HCl 4 mg 09/15/24 12:45 Ondansetron Inj 4 Mg/2 Ml Vial IV PUSH Q4H PRN Nausea Oxycodone/Acetaminophen 1 tablet 10/03/24 15:56 10/12/24 06:15 Oxycodone/Acetaminophen (*Crx) 5-325 Mg Tablet PO 1 tablet Q4H PRN Administration Pain Rated 7-10 Polyethylene Glycol 17 gm 09/15/24 23:37 Polyethylene Glycol 3350 17 Gm Powd.Pack PO DAILY PRN Constipation Potassium Chloride 10 meq 09/16/24 09:00 10/11/24 08:49 Potassium Chloride 10 Meq Er Tablet PO 10 meq DAILY KELIN Administration Rivaroxaban 20 mg 09/23/24 17:00 09/28/24 17:16 Rivaroxaban 20 Mg Tablet PO 20 mg DAILY@1700 KELIN Administration Senna 8.6 mg 10/06/24 16:10 10/11/24 08:50 Sennosides 8.6 Mg Tablet PO 8.6 mg DAILY KELIN Administration Senna/Docusate Sodium 2 tab 10/07/24 09:00 10/11/24 16:32 Senna/Docusate Sodium Tablet PO 2 tab BID KELIN Administration Sodium Chloride 2 spray 09/15/24 23:37 Saline 0.65% Gordo Soln 44 Ml Btl NASAL PRN PRN Congestion Sodium Chloride 1,000 mg 10/03/24 11:00 10/11/24 16:32 Sodium Chloride 500 Mg Tablet PO 1,000 mg TID KELIN Administration Vitamin B Complex 1 cap 09/16/24 09:00 10/11/24 08:49 Vitamin B Complex Capsule PO 1 cap QAM KELIN Administration Vitamin D 5,000 units 09/16/24 09:00 10/11/24 08:50 Cholecalciferol 5,000 Units Tablet PO 5,000 units DAILY KELIN Administration Vitamin E 800 unit 09/16/24 09:00 10/11/24 08:49 Vitamin E 400 Unit Capsule PO 800 unit DAILY KELIN Administration Zolpidem Tartrate 2.5 mg 10/11/24 08:15 Zolpidem Tartrate (*Crx) 2.5 Mg Tablet PO HS PRN Insomnia Radiology Results: ITS Impressions Head CT 09/15/24 11:48 IMPRESSION: 1. 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 No acute intracranial process. 2. Age-related changes including moderate diffuse on loss and mild scattered white matter hypoattenuation consistent with chronic small vessel ischemic disease. Brain MRI 09/18/24 08:50 IMPRESSION: 1. Age-related changes in the brain. No acute intracranial process. 2. 1.3 x 1.2 x 0.9 cm T2 hyperintense intrasellar mass versus cystic lesion. 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 There is been no evident change in appearance of the pituitary on multiple prior CT studies dating back to thousand 17 which would argue against malignancy/metastases. Would recommend obtaining pre and postcontrast pituitary protocol MRI to distinguish solid versus cystic which would aid in narrowing the differential. Sella Turcica MRI 09/19/24 12:56 IMPRESSION: 1. 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 2. 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 Lumbar Puncture Fluoroscopy 09/19/24 14:00 IMPRESSION: 1. Successful fluoro-guided lumbar puncture. Chest X-Ray 09/24/24 07:39 Impression: Central pulmonary venous congestive change. Labs Labs: Laboratory Results - last 24 hr 10/07/24 10/11/24 10/11/24 20:19 08:38 15:15 Sodium 127 L 127 L Potassium 4.5 Chloride 93 L Carbon Dioxide 23 Anion Gap 11 BUN 13 Creatinine 0.40 L Estim Creat Clear Calc 109 Estimated GFR > 60 Glucose 96 Calcium 9.3 Phosphorus 4.0 Magnesium 1.6 Urine Osmolality 317 10/12/24 04:52 Sodium 127 L Potassium 4.3 Chloride 92 L Carbon Dioxide 26 Anion Gap 9 BUN 14 Creatinine 0.44 L Estim Creat Clear Calc 100 Estimated GFR > 60 Glucose 99 Calcium 8.7 Phosphorus 4.1 Magnesium 1.5 L Urine Osmolality
--- NOTE | 2024-10-12 08:15 | PM.DS ---
DS: Admitting Diagnosis Discharge Date 10/12 Admitting Diagnosis (1) Altered mental status: Code(s): R41.82 - Altered mental status, unspecified Status: Acute (2) Sepsis: Qualifiers: Sepsis acute organ dysfunction status: unspecified Sepsis type: methicillin resistant Staphylococcus aureus Qualified Code(s): A41.02 - Sepsis due to Methicillin resistant Staphylococcus aureus Code(s): A41.9 - Sepsis, unspecified organism Status: Acute (3) Anxiety: Code(s): F41.9 - Anxiety disorder, unspecified Status: Chronic DS: Discharge Diagnosis Discharge Diagnosis (1) Altered mental status: Code(s): R41.82 - Altered mental status, unspecified Status: Acute (2) Sepsis: Qualifiers: Sepsis type: methicillin resistant Staphylococcus aureus Sepsis acute organ dysfunction status: unspecified Qualified Code(s): A41.02 - Sepsis due to Methicillin resistant Staphylococcus aureus Code(s): A41.9 - Sepsis, unspecified organism Status: Acute (3) Anxiety: Code(s): F41.9 - Anxiety disorder, unspecified Status: Chronic DS: Summary Hospital Course Hospital Course: Per H&P: This is a 73-year-old female that resides at a local Nursing Facility, who was originally discharged from [facility] with pneumonia, that presented back to the Emergency department with weakness, fever and altered mental status. This patient has a significant history of chronic hyponatremia, anemia, Bipolar disorder, Chronic resp failure on home oxygen, GERD, epilepsy, and neurocognitive disorder. On arrival from nursing facility she appeared fatigued A&O x2 Emergency department noted vital signs on arrival temperature 101.2?, heart rate of 135, respirations 34, blood pressure 1 and 108, oxygen saturation 93% on room air. Further workup noted white blood cell count of 19.8, hemoglobin 14.1 hematocrit 42.2 platelets are 286. BUN is 25 creatinine 0.2, GFR greater than 60. Lactic acid was 1.7 CRP 2.5. Chest x-ray one view noted no acute cardiopulmonary disease process. CT head noted no acute abnormalities. Urinalysis noted 2+ leukocytes, white blood cell count greater than 100, no bacteria was noted negative nitrates 2+ protein. He has noted a pH of 7.46, pCO2 33.0, PO2 67.4, bicarb 23.0, O2 94.6%. Patient was given IV fluid bolus, as well as antipyretics. Patient's repeat vital signs noted temperature of a 100.6?, pulse rate 117, respirations 25, blood pressure was 196/80, she is tending present on room air. Delarosa catheter was placed in the emergency department. Thick purulent urine was noted. IV vancomycin and cefepime started in the emergency department patient was admitted for further management of UTI, AMS. The following med issues have been addressed during hospitalization AMS (altered mental status): Code(s): R41.82 - Altered mental status, unspecified Status: Acute Assessment and Plan: Patient presents with altered mental status. She has a normal baseline AOx3 with slow speech. 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 Patient presented with fevers on 09/15. LP performed 09/19 showing no RBCs and 1 WBCs with mostly lymphocytes. Gram stain showing rare WBC and no organisms. Glucose 97 and protein 51. Viral and bacterial meningitis unlikely but she was on abx prior to LP being performed so could be partially treated meningitis. Consider AMS related to polypharmacy. Consider catatonia. Symptoms seem to wax and wane - delirium? CSF HSV PCR negative. Acyclovir stopped. CSF bacterial cultures were NOT sent to [facility] (fungal cx sent); unable to determine if partially treated meningitis but felt less likely. Stop IV abx and monitor Primidone and Baclofen were cuts back. 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 Patient has dysphagia likely resulting from previous multiple stroke I had a long and thought discussions with patient's family: patient's and daughter about prognosis and goals of care, Patient daughter down man request to start feeding tube for G-tube consult GI for tube feeding placement, plans bed tube on Wednesday. Will place NG tube for feeding today 09/30 Patient feels better today, appetite is improving, mental status improving, patient declines NG tube feeding. Waiting patient family to make decision about tube feeding 10/01 Patient is lethargic, unable to engage conversation or follow commands, patient cannot recall her conversation with the care coordinators. Patient has a multiple chronic infarct on MRI, MRI also showed moderate diffuse cerebral volume loss. Patient may have dementia related age and multiple stroke. Current mental status is possible baseline Appreciate neurologist consultation, discontinue baclofen and primidone 10/11 Now patient alert oriented x3, back to baseline. 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 p.o. per neurologist recommendation Discontinue furosemide 20 mg b.i.d. p.o. Received IV fluid with normal saline 75 mL/hour Patient cannot tolerate diet well, Sodium dropped to 113 10/07 Appreciate risk and insurance manager consultation. Start hypertonic saline per risk and insurance manager Sodium is trending up 120. c/w sodium chloride tablets and furosemide as well as fluid restriction. check Na and will give more 3% saline if it is still not rising. 10/09 Sodium is trending up, and stable at 127 for three days, continue Lasix 10 mg b.i.d. p.o., sodium chloride 1 g t.i.d. p.o. per risk and insurance manager recommendation 10/12 Dysphagia Patient does not have appetite and also had trouble with swallowing Patient ate a little today, patient cannot have enough oral intake to support life Likely secondary to dementia,, possible ischemic dementia, MRI showed multiple strokes before and also brain malacia Patient does not want NG tube feeding But patient is able to eat and drink her function seems improving. no need to provide tube feeding, if she continue to improve Speech evaluated patient, patient is able to take regular diet 10/10 Started PT/OT/ST. ST recommended dropping her from Level 5 to Level 4 Pureed diet which was done. Discussed with neurology. He recommended continuing to wean primidone every 7 days. Scheduled IV Ativan for possible catatonia. Did have some improvement yesterday but worse today. ABG ordered but this was okay. back off on Ativan. Stop IV abx. Insomnia Provide Ambien 2.5 mg q.h.s prn hold now because of worse mental status after taking ambien . Constipation Start Senokot S2 tabs b.i.d. p.o. has BM ranularly Sepsis: Qualifiers: Sepsis acute organ dysfunction status: unspecified Sepsis type: sepsis due to unspecified organism Qualified Code(s): A41.9 - Sepsis, unspecified organism Code(s): A41.9 - Sepsis, unspecified organism Status: Acute Assessment and Plan: Noted on admission with fevers, AMS and elevated white count. UTI has been ruled out. Blood cultures negative. Chest x-ray was clear on admission and repeat CXR clear on 09/18. No CSF cultures sent to [facility]. Stop abx and monitor. White blood cell within normal limit, patient is afebrile, resolved Atrial fibrillation with RVR: Code(s): I48.91 - Unspecified atrial fibrillation Status: Acute Assessment and Plan: Review of chart showing she has AFib and was on Xarelto on prior admissions. In the paper chart, [facility] sheets only had 5 of 6 sheets. Suspect the 6th sheet listed additional medications (including Xarelto). RN will call [facility] to get a complete list of patient's medications. Restarted Xarelto Hypertension: Code(s): I10 - Essential (primary) hypertension Status: Acute Assessment and Plan: Patient's blood pressure was reviewed on 09/26 Blood pressure with wide fluctuations. continue to monitor for now Acute and chronic respiratory failure: Qualifiers: Respiratory failure complication: hypoxia Qualified Code(s): J96.21 - Acute and chronic respiratory failure with hypoxia Code(s): J96.20 - Acute and chronic respiratory failure, unspecified whether with hypoxia or hypercapnia Status: Acute Assessment and Plan: ABG in ER - pH of 7.46, pCO2 33.0, PO2 67.4, bicarb 23.0, O2 94.6%. Patient presumably wears oxygen at the facility but has been weaned to room air here Continue CPAP at night and with naps as she allows. Now patient is still on room air Obstructive sleep apnea: Code(s): G47.33 - Obstructive sleep apnea (adult) (pediatric) Status: Acute Assessment and Plan: Continue CPAP at night and with naps as she allows. UTI (urinary tract infection): Qualifiers: Hematuria presence: without hematuria Urinary tract infection type: acute cystitis Qualified Code(s): N30.00 - Acute cystitis without hematuria Code(s): N39.0 - Urinary tract infection, site not specified Status: Resolved Assessment and Plan: UA is consistent with UTI. UCx collected. 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 Abx started. BCx and UCx negative. UTI ruled out. She is having urine retention and unable to tolerate the Delarosa removed 09/25/24. Plan for discharge with Delarosa Tachycardia: Code(s): R00.0 - Tachycardia, unspecified Status: Resolved Assessment and Plan: Probably related to above. Heart rate better controlled. No alarms by tele so tele stopped. Resolved Patient condition continues to improve, plan discharge [facility] Time Spent with Patient Time attestation: Total time spent providing and/or coordinating discharge services: Exam Narrative: GENERAL: Pleasant, in no acute distress. Well-nourished. - EYES: EOMI. Anicteric. - HENT: Moist mucous membranes. - LUNGS: Clear to auscultation bilaterally, no wheezing, rhonchi, or rales. - CARDIOVASCULAR: Regular rate and rhythm. No murmur. No JVD. - ABDOMEN: Soft, non-tender and non-distended. No palpable masses. 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 Non-tender. - NEUROLOGIC: No new focal neurological deficits. Able to move and hold upper extremities - PSYCHIATRIC: Awake, Alert and oriented x 3. Appropriate mood and affect. - SKIN: No rashes or lesions. Warm. - LYMPH: No cervical lymphadenopathy. DS: Data Data Completed and Pending Completed studies during hospitalization: Pending at discharge 09/19/24 09:21 Cytology [PTH] Routine Labs on day of discharge: Labs from last 24 hours 10/12/24 10/11/24 10/11/24 04:52 15:15 08:38 Sodium 127 L 127 L 127 L Potassium 4.3 4.5 Chloride 92 L 93 L Carbon Dioxide 26 23 Anion Gap 9 11 BUN 14 13 Creatinine 0.44 L 0.40 L Estim Creat Clear Calc 100 109 Estimated GFR > 60 > 60 Glucose 99 96 Calcium 8.7 9.3 Phosphorus 4.1 4.0 Magnesium 1.5 L 1.6 Urine Osmolality 10/07/24 20:19 Sodium Potassium Chloride Carbon Dioxide Anion Gap BUN Creatinine Estim Creat Clear Calc Estimated GFR Glucose Calcium Phosphorus Magnesium Urine Osmolality 317 Preliminary micro results at discharge 09/19/24 13:14 Fungal Culture and Stain - Preliminary Cerebral Spinal Fluid Discharge Plan Discharge Attending physician on discharge: Michael Brooks Consulting providers: Melo Moran; Daniel Westfall Discharging Clinician: Michael Brooks Anticipated Discharge Date/Time: 10/07/24 11:14 Patient Disposition: SNF Activity: as tolerated Diet: as tolerated and heart healthy Patient Instructions: Rivaroxaban (By mouth), Catheter-associated Urinary Tract Infection (DC), Catheter-associated Urinary Tract Infection (GEN) Patient Language: [place] Stand Alone Forms: General Discharge Information Follow-up/Referrals: [place],Hernando Maldonado MD [Primary Care Provider] - (Patient needs to see PCP in 1 week) Discharge Medications: New Xarelto 20 mg Tablet 20 mg PO DAILY@1700 Qty: 60 0RF oxycodone-acetaminophen 5-325 mg Tablet 1 tablet PO Q8H PRN (Reason: Pain Rated 7-10) Qty: 10 0RF irbesartan 150 mg Tablet 300 mg PO QAM Qty: 30 0RF furosemide [Lasix] 20 mg tablet 10 mg PO DAILY Qty: 30 0RF sodium chloride 1,000 mg tablet,soluble 1,000 mg PO TID Qty: 90 0RF Continued docusate sodium 100 mg Tablet 100 mg PO DAILY PRN (Reason: Constipation) isosorbide mononitrate 30 mg tablet extended release 24 hr 30 mg PO DAILY lidocaine [Lidoderm] 5 % adhesive patch,medicated 2 patch topical DAILY Patient Comments: left shoulder Rx Instructions: leave on most painful area for up to 12 hrs magnesium hydroxide [Gentle Laxative (mag hydrox)] 400 mg/5 mL suspension 30 ml PO DAILY PRN (Reason: constipation) diclofenac sodium [Voltaren Arthritis Pain] 1 % gel 2 g topical BID PRN (Reason: moderate pain (scale score 5-6)) Patient Comments: right shoulder Rx Instructions: apply to single elbow, wrist or hand; for hand includes palm/fingers/back of hand hydralazine 10 mg Tablet 10 mg PO QID Qty: 30 0RF Artificial Tears([id number]-waec) 1-0.2-0.2 % Drops 1 drp EACH EYE QID PRN (Reason: Dry Eye(S)) Qty: 30 0RF atorvastatin 10 mg Tablet 10 mg PO HS cholecalciferol (vitamin D3) 10 mcg (400 unit) Tablet 5,000 unit PO DAILY fluticasone propionate 50 mcg/actuation Brogan,Suspension 2 spray INTRANASAL DAILY vitamin E 400 unit Capsule 800 unit PO DAILY vitamin B complex Tablet Extended Release 1 tablet PO DAILY Rx Instructions: with biotin and folic acid metoprolol tartrate 100 mg Tablet 100 mg PO BID ondansetron HCl 4 mg tablet 4 mg PO TID amlodipine 10 mg tablet 10 mg PO DAILY bisacodyl [Dulcolax (bisacodyl)] 5 mg Tablet,Delayed Release (Dr/Ec) 10 mg PO HS PRN (Reason: Constipation) polyethylene glycol 3350 [Miralax] 17 gram/dose Powder 17 g PO DAILY PRN (Reason: Constipation) albuterol sulfate 90 mcg/actuation Hfa Aerosol Inhaler 1 inh INHALATION DAILY PRN (Reason: sob/wheezing) sodium chloride 0.65 % Aerosol,Brogan 2 spray INTRANASAL PRN PRN (Reason: Congestion) memantine 5 mg tablet 5 mg PO BID guaifenesin [Mucinex] 1,200 mg Tablet Extended Release 12hr 1,200 mg PO BID pregabalin [Lyrica] 150 mg Capsule 150 mg PO BID Qty: 14 0RF clonidine HCl 0.1 mg tablet 0.1 mg PO DAILY isosorbide dinitrate 30 mg tablet 30 mg PO QID furosemide [Lasix] 20 mg tablet 20 mg PO BID Discontinued spironolactone 25 mg tablet 25 mg PO DAILY baclofen 10 mg tablet 10 mg PO TID oxycodone 5 mg tablet 5 mg PO Q4-6H PRN (Reason: Pain) Qty: 7 0RF primidone 50 mg Tablet 200 mg PO BID pantoprazole 40 mg Tablet,Delayed Release (Dr/Ec) 40 mg PO DAILY losartan-hydrochlorothiazide 100-25 mg tablet 1 tablet PO DAILY lorazepam 0.5 mg tablet 0.5 mg PO Q6H PRN (Reason: Anxiety) potassium chloride [Klor-Con 10] 10 mEq tablet extended release 10 meq PO DAILY Qty: 7 0RF Date of admission: 09/16/24 09:36 Primary Care Provider: [place],Hernando Maldonado Admitting Provider: Shabbir Zayas Attending physician on admission: Keren Goode Condition: Stable
[2024-10-12] MEDS: SODIUM CHLORIDE 500 MG TABLET 1000 MG PO (08:49)
[2024-10-12] MEDS: amLODIPine BESYLATE 10 MG TABLET PO (08:49)
[2024-10-12] MEDS: LIDOCAINE 5% PATCH 2 PATCH TOPICAL (08:49)
[2024-10-12 08:50] VITALS: PULSE 80
[2024-10-12] MEDS: SENNOSIDES 8.6 MG TABLET PO (08:50)
[2024-10-12] MEDS: NEBIVOLOL HCL 5 MG TABLET 10 MG PO (08:50)
[2024-10-12] MEDS: ISOSORBIDE MONONITRATE 30 MG TAB.ER.24H PO (08:50)
[2024-10-12] MEDS: FUROSEMIDE 10 MG TABLET PO ×2 (08:50→10:54)
[2024-10-12] MEDS: IRBESARTAN 150 MG TABLET 300 MG PO (08:51)
[2024-10-12] MEDS: SENNA/DOCUSATE SODIUM TABLET 2 TAB PO (08:51)
[2024-10-12] MEDS: VITAMIN E 400 UNIT CAPSULE 800 UNIT PO (08:51)
[2024-10-12] MEDS: FAMOTIDINE 20 MG TABLET PO (08:51)
[2024-10-12] MEDS: guaiFENesin 12 HR 600 MG TABCR 1200 MG PO (08:51)
[2024-10-12] MEDS: MEMANTINE 5 MG TABLET PO (08:51)
[2024-10-12] MEDS: POTASSIUM CHLORIDE 10 MEQ ER TABLET PO (08:51)
[2024-10-12] MEDS: VITAMIN B COMPLEX CAPSULE 1 CAP PO (08:52)
[2024-10-12] MEDS: CHOLECALCIFEROL 5,000 UNITS TABLET 5000 UNITS PO (08:52)
[2024-10-14 20:29] LABS: Cryptococcus Antigen NOT DETECTED; Cryptococcus Specimen Source CEREBROSPINAL FLUID
== END 2024-10-12 11:20 | DRG 871 ==
LOC: ANHED 12:34 → ANH3MED 17:51 → ANHIMU 09-16 18:36 → ANH2MED 09-24 10:10 → ANHIMU 10-13 09:00
PROVIDERS: Internal Medicine; Internal Medicine Nephrology; Nurse Practitioner Adult Health; Nurse Practitioner Family; Admitting Provider General Practice; Emergency Provider Physician Assistant; PCP Internal Medicine; Visit Provider Hospitalist
DX: A41.9 Sepsis, unspecified organism (principal); G93.41 Metabolic encephalopathy; J96.21 Acute and chronic respiratory failure with hypoxia; E87.1 Hypo-osmolality and hyponatremia; I48.0 Paroxysmal atrial fibrillation; I10 Essential (primary) hypertension; J45.909 Unspecified asthma, uncomplicated; E23.6 Other disorders of pituitary gland; E78.5 Hyperlipidemia, unspecified; K31.84 Gastroparesis; K21.9 Gastro-esophageal reflux disease without esophagitis; K57.30 Diverticulosis of large intestine without perforation or abscess without bleeding; R33.9 Retention of urine, unspecified; G47.33 Obstructive sleep apnea (adult) (pediatric); G40.909 Epilepsy, unspecified, not intractable, without status epilepticus; R41.9 Unspecified symptoms and signs involving cognitive functions and awareness; F01.50 Vascular dementia, unspecified severity, without behavioral disturbance, psychotic disturbance, mood disturbance, and anxiety; F41.9 Anxiety disorder, unspecified; F31.9 Bipolar disorder, unspecified; Z96.611 Presence of right artificial shoulder joint; Z96.652 Presence of left artificial knee joint; I69.391 Dysphagia following cerebral infarction; Z99.81 Dependence on supplemental oxygen; Z89.612 Acquired absence of left leg above knee; Z79.02 Long term (current) use of antithrombotics/antiplatelets; Z87.442 Personal history of urinary calculi
CPT/HCPCS: 36415; 36600; 62328; 70450; 70551; 70553; 71045; 80048; 80053; 80069; 80202; 81001; 82040; 82042; 82375; 82533; 82565; 82570; 82746; 82784; 82805; 82945; 82948; 83050; 83605; 83735; 83873; 83880; 83916; 83930; 83935; 84100; 84155; 84156; 84157; 84165; 84295; 84300; 84439; 84443; 85018; 85025; 85055; 85610; 85730; 86140; 86403; 86592; 86617; 86788; 87040; 87070; 87086; 87102; 87205; 87206; 87529; 87637; 87641; 87798; 88108; 89051; 92610; 93005; 94002; 94640; 96365; 96366; 96367; 96375; 96376; 97161; 99285; A9270; A9577; G0378; J0133; J0290; J0360; J0692; J0834; J1200; J1650; J1940; J2060; J2919; J3370; J3475; J3480; J7030; J7060; J7131

== ENCOUNTER 2025-01-18 12:32 | Inpatient (IN) | payer MEDICARE, MEDICAID, SELFPAY ==
[2025-01-18] VITALS (9 sets, daily range): BP systolic 110–173; BP diastolic 49–72; PULSE 55–71; RESP 12–19; TEMP 36.5–36.7; O2SAT 93–99; BMI 37.0
--- NOTE | ~2025-01-18 | XR_ITS ---
XR chest 1V portable Ordering provider: Anthony Garcia History: 74 years Female with . Not feeling good . Comparison: September 24, 2024 FINDINGS: MEDIASTINUM: The cardiac silhouette is slightly enlarged. Congestive jai. LUNGS: No infiltrates, effusions or pneumothorax. Bilateral prominent bronchovascular markings. OTHER: No free air under the diaphragm. IMPRESSION: No acute cardiopulmonary pathology. Cardiomegaly. Reviewed, dictated and finalized at location A.
--- NOTE | 2025-01-18 13:04 | ECG_ITS ---
Test Date: 2025-01-18 13:10:22 Measurements Intervals [place] Rate: 58 P: 40 MD: 198 QRS: -10 QRSD: 87 T: 22 QT: 454 QTc: 449 Interpretive Statements SINUS BRADYCARDIA POSSIBLE LEFT ATRIAL ENLARGEMENT LEFT VENTRICULAR HYPERTROPHY MINIMAL Q WAVES- HIGH LATERAL LEADS BORDERLINE ECG Compared to ECG 09/15/2024 12:17:51 HEART RATE HAS DECREASED Electronically Signed On 01-18-2025 13:41:48 CDT by Balaji Gomez D.O.
--- NOTE | 2025-01-18 13:13 | ED.GENADULT ---
HPI - General Adult General Chief complaint: Unspecified Stated complaint: AMS Time Seen by Provider: 01/18/25 13:13 Source: patient and EMS Mode of arrival: EMS Limitations: dementia History of Present Illness HPI narrative: 74 years old white female came from [facility] by ambulance for unknown reason. Patient denies any complain except did not have lunch today. I was told that patient started on new medication today include clonazepam, clonidine and tizanidine and staff had hard time to wake her up History of stroke, bipolar, anxiety, dysphagia secondary to stroke, left below-knee amputation Related Data Home Medications ?Medication ?Instructions ?Recorded ?Confirmed ?Last Taken ?Type atorvastatin 10 mg tablet 10 mg PO HS 09/09/19 09/15/24 Unknown History cholecalciferol (vitamin D3) 10 5,000 unit PO DAILY 09/09/19 09/15/24 Unknown History mcg (400 unit) tablet fluticasone propionate 50 2 spray intranasal DAILY 09/09/19 09/15/24 Unknown History mcg/actuation nasal spray,suspension vitamin E 268 mg (400 unit) capsule 800 unit PO DAILY 09/09/19 09/15/24 Unknown History docusate sodium 100 mg tablet 100 mg PO DAILY PRN Constipation 05/31/20 09/15/24 Unknown History albuterol sulfate 90 mcg/actuation 1 inh inhalation DAILY PRN 04/23/24 09/15/24 Unknown History aerosol inhaler sob/wheezing amlodipine 10 mg tablet 10 mg PO DAILY 04/23/24 09/15/24 Unknown History bisacodyl 5 mg tablet,delayed 10 mg PO HS PRN Constipation 04/23/24 09/15/24 Unknown History release (Dulcolax (bisacodyl)) guaifenesin 1,200 mg tablet, 1,200 mg PO BID 04/23/24 09/15/24 Unknown History extended release 12 hr (Mucinex) memantine 5 mg tablet 5 mg PO BID 04/23/24 09/15/24 Unknown History metoprolol tartrate 100 mg tablet 100 mg PO BID 04/23/24 09/15/24 Unknown History ondansetron HCl 4 mg tablet 4 mg PO TID 04/23/24 09/15/24 Unknown History polyethylene glycol 3350 17 17 g PO DAILY PRN Constipation 04/23/24 09/15/24 Unknown History gram/dose oral powder (Miralax) sodium chloride 0.65 % nasal spray 2 spray intranasal PRN PRN 04/23/24 09/15/24 Unknown History aerosol Congestion vitamin B complex 1 tablet PO DAILY 04/23/24 09/15/24 Unknown History diclofenac sodium 1 % topical gel 2 g topical BID PRN moderate pain 08/06/24 09/15/24 Unknown History (Voltaren Arthritis Pain) (scale score 5-6) isosorbide mononitrate 30 mg 30 mg PO DAILY 08/06/24 09/15/24 Unknown History tablet,extended release 24 hr lidocaine 5 % topical patch 2 patch topical DAILY 08/06/24 09/15/24 Unknown History (Lidoderm) magnesium hydroxide 400 mg/5 mL 30 ml PO DAILY PRN constipation 08/06/24 09/15/24 Unknown History oral suspension (Gentle Laxative (magnesium hydroxide)) clonidine HCl 0.1 mg tablet 0.1 mg PO DAILY 09/07/24 09/15/24 Unknown History furosemide 20 mg tablet (Lasix) 20 mg PO BID 09/07/24 09/15/24 Unknown History isosorbide dinitrate 30 mg tablet 30 mg PO QID 09/07/24 09/15/24 Unknown History Allergies Allergy/AdvReac Type Severity Reaction Status Date / Time Fish Containing Products Allergy Severe Dyspnea / Verified 04/23/24 19:11 SOB Iodinated Contrast Media Allergy Intermediate HIVES, RED Verified 04/27/24 08:14 FACE iodine Allergy Unknown Unknown Verified 04/23/24 19:11 Barbiturates Allergy Unknown Verified 04/23/24 19:11 bupivacaine Allergy Unknown Verified 04/23/24 20:51 diazepam (From Valium) Allergy Unknown Verified 04/23/24 19:11 latex Allergy Unknown Verified 04/23/24 19:11 menthol Allergy Unknown Verified 04/23/24 20:51 Sulfa (Sulfonamide Allergy Unknown Verified 04/23/24 19:11 Antibiotics) thiopental (From Pentothal) Allergy Unknown Verified 04/27/24 08:14 wool Allergy Unknown Verified 04/23/24 20:51 Review of Systems Review of Systems: ROS unobtainable: Yes unobtainable due to mental status PMFSH Past Medical History Medical History Failure to thrive CVA (cerebral vascular accident) Chronic anticoagulation Kidney stone Chronic anemia Chronic respiratory failure with hypoxia, on home oxygen therapy Bipolar disorder Gastroesophageal reflux disease Hyperlipidemia Hypertension Obstructive sleep apnea intolerant to CPAP Left tibial fracture Chronic hyponatremia Shingles Anxiety Depression Gastroparesis Diverticulitis Asthma Epilepsy no longer on medication Seasonal allergies Surgical History Surgical History History of left above knee amputation History of right shoulder replacement History of cholecystectomy History of left knee replacement History of hysterectomy History of open reduction and internal fixation (ORIF) procedure Left tibia and right ankle. History of appendectomy History of tonsillectomy Family History Family History Mother Suicide Depression Heart disease Hypertension Heart failure Sibling Suicide Father Diabetes mellitus Emphysema lung Social History Social History Social History: Surrogate medical decision maker: Martina Rodney, daughter. Code status: Full code. Smoking status: Never smoker Second hand tobacco smoke exposure: No Alcohol intake: never Substance use: never Substance use type: does not use Do You Feel Safe in your Home?: Yes Lack of Transportation: No Lack of Food: Never True Current Housing: I Have Housing Concerned About Future Housing: No Difficulty Paying Gas/Electric Bills: No Difficulty Paying for Meds: No Currently Unemployed: No Education: Decline to Answer Difficulty w/ Childcare or Family Care: No Living arrangements: [facility] Occupation/Education: retired Spiritual care concerns: No Agree to blood products: No Exam Narrative: General appearance: Well-developed, well-nourished not in any pain or distress Skin: Normal color Head: Normocephalic, nontraumatic Eyes: Clear conjunctiva ENT: Oropharynx normal, ears normal, nose normal Neck: Supple, nontender Chest and respiratory: Airway patent, no respiratory distress, no accessory muscle use Heart: Regular rate/rhythm Abdomen: Soft, nontender, no organomegaly, quiet bowel sounds Vascular: Normal peripheral pulses, normal capillary refill. Musculoskeletal: Left below-knee amputation Neurologic: Alert and oriented to her name only Course Consultations Consultation #1: DR DOMINGUEZ Date: 01/18/25 Time: 15:59 Vital Signs Vital signs: Vital Signs Temperature 36.7 C 01/18/25 12:38 Pulse Rate 62 01/18/25 12:38 Respiratory Rate 16 01/18/25 12:38 Blood Pressure 128/57 L 01/18/25 12:38 Pulse Oximetry 94 01/18/25 12:38 Oxygen Delivery Room Air 01/18/25 12:38 Temperature 36.6 C 01/18/25 15:00 Pulse Rate 55 L 01/18/25 15:00 Respiratory Rate 13 01/18/25 15:00 Blood Pressure 110/68 01/18/25 15:00 Pulse Oximetry 94 01/18/25 15:00 Oxygen Delivery Room Air 01/18/25 12:38 Medical Decision Making MDM Narrative Medical decision making narrative: Patient came from [facility] for uncertain reasons Vital signs stable Physical examination oriented to her name on the, left below-knee amputation Differential diagnosis include depression like symptoms, dehydration, electrolyte imbalance, urinary tract infection, pneumonia, side effect to new medications of clonazepam, clonidine and tizanidine Blood workup today includes CBC, CMP, troponin, coags showed sodium 121, chloride 83, otherwise insignificant Urine analysis showing evidence of urinary tract infection Chest x-ray showed no acute abnormality Diagnosis acute on top of chronic hyponatremia, urinary tract infection, medication side effects Differential Diagnosis Differential Diagnosis: As above Vital Signs Vital Signs: Vital Signs Temperature 36.7 C 01/18/25 12:38 Pulse Rate 62 01/18/25 12:38 Respiratory Rate 16 01/18/25 12:38 Blood Pressure 128/57 L 01/18/25 12:38 Pulse Oximetry 94 01/18/25 12:38 Oxygen Delivery Room Air 01/18/25 12:38 Temperature 36.6 C 01/18/25 15:00 Pulse Rate 55 L 01/18/25 15:00 Respiratory Rate 13 01/18/25 15:00 Blood Pressure 110/68 01/18/25 15:00 Pulse Oximetry 94 01/18/25 15:00 Oxygen Delivery Room Air 01/18/25 12:38 Lab Data 01/18/25 13:44 01/18/25 13:44 Labs: Lab Results 01/18/25 01/18/25 Range/Units 13:30 13:44 WBC 10.3 H (4.5-10.0) K/mm3 RBC 4.03 L (4.2-5.4) M/mm3 Hgb 11.2 L (12.0-15.0) g/dL Hct 33.9 L (37.0-47.0) % MCV 84.1 (80-100) fl MCH 27.8 (26-34) pg MCHC 33.0 (32-36) g/dl RDW 14.6 H (11.5-14.5) % Plt Count 341 D (150-375) k/mm3 MPV 10.0 (7.4-10.4) fl Immature Gran % (Auto) 0.4 (0-0.5) % Neut % (Auto) 72.1 (45.5-73.1) % Lymph % (Auto) 13.3 L (18.3-44.2) % [place] % (Auto) 11.9 H (2.6-8.5) % Eos % (Auto) 1.9 (0-4.4) % Baso % (Auto) 0.4 (0.2-1.2) % Lymph # (Auto) 1.37 (0.9-3.2) K/mm3 [place] # (Auto) 1.2 H (0.1-0.6) K/mm3 Eos # (Auto) 0.2 (0-0.3) K/mm3 Baso # (Auto) 0.0 (0.0-0.1) K/mm3 Abs Immat Gran (auto) 0.04 H (0.00-0.031) K/mm3 Absolute Neuts (auto) 7.4 H (1.3-6.7) K/mm3 Absolute Nucleated RBC 0.000 (0.0-0.012) K/mm3 Nucleated RBC % 0.0 (0.0-0.2) % PT 14.1 (11.1-14.7) Seconds INR 1.1 APTT 34.1 (22.3-36.8) Seconds Sodium 121 L (137-145) mmol/L Potassium 4.3 (3.4-5.0) mmol/L Chloride 83 L (98-107) mmol/L Carbon Dioxide 30 (22-30) mmol/L Anion Gap 8 (4-12) mmol/L BUN 13 (7-17) mg/dL Creatinine 0.64 L (0.7-1.0) mg/dL Estim Creat Clear Calc 69 ml/min Estimated GFR > 60 (59 - ) Glucose 104 (65-110) mg/dL Calcium 8.9 (8.4-10.2) mg/dL Total Bilirubin 0.3 (0.2-1.3) mg/dL AST 23 (14-36) U/L ALT 15 (6-35) U/L Alkaline Phosphatase 80 (38-126) U/L Troponin I 0.015 (0.000-0.034) ng/mL Total Protein 6.8 (6.3-8.2) g/dL Albumin 3.9 (3.5-5.1) g/dL Urine Color Yellow (Yellow) Urine Appearance Clear (Clear) Urine pH 7.0 (5.0-9.0) Ur Specific [place] 1.007 (1.001-1.035) Urine Protein 2+ H (Negative) mg/dL Urine Glucose (UA) Negative (Negative) mg/dL Urine Ketones Negative (Negative) mg/dL Ur Blood (Man) Negative (Negative) Urine Nitrate Negative (Negative) Urine Bilirubin Negative (Negative) Urine Urobilinogen 0.2 (<2.0) mg/dL Leukocyte Esterase Rfl 2+ H (Negative) LEEANNE/UL Urine RBC 0-2 (0-2) /hpf Urine WBC 21-50 H (0-3) /hpf Ur Squamous Epith Cells None seen (Few) /hpf Urine Bacteria 4+ /hpf Urine Casts 0-2 Imaging Data Radiologist's impression: Impressions Chest X-Ray 01/18/25 13:59 IMPRESSION: No acute cardiopulmonary pathology. Cardiomegaly. Critical Care Time Critical Care Time Critical Care Time: No Discharge Plan Discharge Clinical Impression: Chronic hyponatremia, Urinary tract infection, Acute hyponatremia, Medication adverse effect Patient Disposition: Still a Patient Condition: Stable Patient Language: Malian Prescriptions: No Action docusate sodium 100 mg Tablet 100 mg PO DAILY PRN (Reason: Constipation) isosorbide mononitrate 30 mg tablet extended release 24 hr 30 mg PO DAILY lidocaine [Lidoderm] 5 % adhesive patch,medicated 2 patch topical DAILY Patient Comments: left shoulder Rx Instructions: leave on most painful area for up to 12 hrs magnesium hydroxide [Gentle Laxative (mag hydrox)] 400 mg/5 mL suspension 30 ml PO DAILY PRN (Reason: constipation) diclofenac sodium [Voltaren Arthritis Pain] 1 % gel 2 g topical BID PRN (Reason: moderate pain (scale score 5-6)) Patient Comments: right shoulder Rx Instructions: apply to single elbow, wrist or hand; for hand includes palm/fingers/back of hand hydralazine 10 mg Tablet 10 mg PO QID Qty: 30 0RF Artificial Tears([id number]) 1-0.2-0.2 % Drops 1 drp EACH EYE QID PRN (Reason: Dry Eye(S)) Qty: 30 0RF Xarelto 20 mg Tablet 20 mg PO DAILY@1700 Qty: 60 0RF oxycodone-acetaminophen 5-325 mg Tablet 1 tablet PO Q8H PRN (Reason: Pain Rated 7-10) Qty: 10 0RF irbesartan 150 mg Tablet 300 mg PO QAM Qty: 30 0RF furosemide [Lasix] 20 mg tablet 10 mg PO DAILY Qty: 30 0RF sodium chloride 1,000 mg tablet,soluble 1,000 mg PO TID Qty: 90 0RF atorvastatin 10 mg Tablet 10 mg PO HS cholecalciferol (vitamin D3) 10 mcg (400 unit) Tablet 5,000 unit PO DAILY fluticasone propionate 50 mcg/actuation [place],Suspension 2 spray INTRANASAL DAILY vitamin E 400 unit Capsule 800 unit PO DAILY vitamin B complex Tablet Extended Release 1 tablet PO DAILY Rx Instructions: with biotin and folic acid metoprolol tartrate 100 mg Tablet 100 mg PO BID ondansetron HCl 4 mg tablet 4 mg PO TID amlodipine 10 mg tablet 10 mg PO DAILY bisacodyl [Dulcolax (bisacodyl)] 5 mg Tablet,Delayed Release (Dr/Ec) 10 mg PO HS PRN (Reason: Constipation) polyethylene glycol 3350 [Miralax] 17 gram/dose Powder 17 g PO DAILY PRN (Reason: Constipation) albuterol sulfate 90 mcg/actuation Hfa Aerosol Inhaler 1 inh INHALATION DAILY PRN (Reason: sob/wheezing) sodium chloride 0.65 % Aerosol,[place] 2 spray INTRANASAL PRN PRN (Reason: Congestion) memantine 5 mg tablet 5 mg PO BID guaifenesin [Mucinex] 1,200 mg Tablet Extended Release 12hr 1,200 mg PO BID pregabalin [Lyrica] 150 mg Capsule 150 mg PO BID Qty: 14 0RF clonidine HCl 0.1 mg tablet 0.1 mg PO DAILY isosorbide dinitrate 30 mg tablet 30 mg PO QID furosemide [Lasix] 20 mg tablet 20 mg PO BID Follow-up/Referrals: Malian,Hernando Maldonado MD [Primary Care Provider] -
--- NOTE | 2025-01-18 13:14 | ECG_ITS ---
Test Date: 2025-01-18 13:22:24 Measurements Intervals [place] Rate: 60 P: 18 MD: 199 QRS: -35 QRSD: 91 T: 28 QT: 445 QTc: 445 Interpretive Statements SINUS RHYTHM LEFT AXIS DEVIATION POSSIBLE LEFT ATRIAL ENLARGEMENT LEFT VENTRICULAR HYPERTROPHY CANNOT R/O SEPTAL INFARCT, AGE INDETERMINATE ABNORMAL ECG Compared to ECG 01/18/2025 13:10:22 NO SIGNIFICANT CHANGE Electronically Signed On 01-18-2025 13:42:42 CDT by Balaji Gomez D.O.
[2025-01-18 13:48] LABS: Add Urine Microscopic? YES; Appearance Urine Clear (Clear); Bacteria Urine 4+ /hpf; Bilirubin Urine Negative (Negative); Blood Urine Negative (Negative); Color Urine Yellow (Yellow); Glucose Urine UA Negative (Negative); Ketones Urine Negative (Negative); Leukocyte Esterase Ur 2+ LEU/UL (Negative); Nitrate Urine Negative (Negative); Non Pathogenic Casts 0-2; Protein Urine 2+ mg/dL (Negative); RBC Urine 0-2 /hpf (0-2); Specific Grav Ur 1.007 (1.001-1.035); Squamous Epithelial Cell Urine None Seen /hpf (Few); Urobilinogen Urine 0.2 mg/dL (<2.0); WBC Urine 21-50 /hpf (0-3)
[2025-01-18 13:56] LABS: Basophils Percent Auto 0.4 % (0.2-1.2); Eosinophils Absolute Auto 0.2 K/mm3 (0-0.3); Eosinophils Percent Auto 1.9 % (0-4.4); Hematocrit 33.9 % (37.0-47.0); Hemoglobin 11.2 g/dL (12.0-15.0); Immature Granulocyte Absolute 0.04 K/mm3 (0.00-0.031); Immature Granulocyte Percent A 0.4 % (0-0.5); Lymphocytes Absolute Auto 1.37 K/mm3 (0.9-3.2); Lymphocytes Percent Auto 13.3 % (18.3-44.2); Mean Corpuscular Hemoglobin 27.8 pg (26-34); Mean Corpuscular Volume 84.1 fl (80-100); Monocytes Absolute Auto 1.2 K/mm3 (0.1-0.6); Monocytes Percent Auto 11.9 % (2.6-8.5); Neutrophils Absolute Auto 7.4 K/mm3 (1.3-6.7); Neutrophils Percent Auto 72.1 % (45.5-73.1); Platelet Count Result 341 k/mm3 (150-375); Red Blood Count 4.03 M/mm3 (4.2-5.4); Red Cell Distribution Width 14.6 % (11.5-14.5); White Blood Count 10.3 K/mm3 (4.5-10.0)
[2025-01-18 14:12] LABS: Alanine Aminotransferase 15 U/L (6-35); Albumin Level 3.9 g/dL (3.5-5.1); Alkaline Phosphatase 80 U/L (38-126); Anion Gap 8 mmol/L (4-12); Aspartate Amino Transferase 23 U/L (14-36); Bilirubin,Total 0.3 mg/dL (0.2-1.3); Blood Urea Nitrogen 13 mg/dL (7-17); Calcium 8.9 mg/dL (8.4-10.2); Carbon Dioxide 30 mmol/L (22-30); Chloride 83 mmol/L (98-107); Estimated CRCL calculation 69 ml/min; Estimated Glomerular Filt Rate > 60; Glucose 104 mg/dL (65-110); Potassium 4.3 mmol/L (3.4-5.0); Sodium 121 mmol/L (137-145); Total Protein 6.8 g/dL (6.3-8.2)
[2025-01-18 14:25] LABS: INR 1.1; Prothrombin Time 14.1 Seconds (11.1-14.7)
[2025-01-18 14:26] LABS: Partial Thromboplastin Time 34.1 Seconds (22.3-36.8)
[2025-01-18 14:44] LABS: Troponin I 0.015 ng/mL (0.000-0.034)
[2025-01-18] MEDS: SODIUM CHLORIDE 0.9% IV 1,000 ML 60 ML IV CONT (15:52)
--- NOTE | 2025-01-18 16:39 | ECG_ITS ---
Test Date: 2025-01-18 16:53:19 Measurements Intervals [place] Rate: 67 P: 27 [place]: 195 QRS: -12 QRSD: 99 T: 67 QT: 427 QTc: 453 Interpretive Statements SINUS RHYTHM POSSIBLE LEFT ATRIAL ENLARGEMENT LEFT VENTRICULAR HYPERTROPHY WITH ST-T CHANGE CANNOT R/O SEPTAL INFARCT, AGE INDETERMINATE MINIMAL Q WAVES- HIGH LATERAL LEADS BASELINE ARTIFACT- I, II, AVR, AVL, AVF, V1-V2 ABNORMAL ECG Compared to ECG 01/18/2025 13:22:24 NO SIGNIFICANT CHANGE Electronically Signed On 01-18-2025 20:30:50 CDT by Balaji Gomez D.O.
--- NOTE | 2025-01-18 17:21 | PC.NURSE ---
penitentiary reports pt was started on 3 new meds this AM, clonazepam, clonidine, and tizanidine
[2025-01-18 17:40] LABS: Troponin I 0.012 ng/mL (0.000-0.034)
--- NOTE | 2025-01-18 17:59 | P.HP_ITS ---
H&P: HPI History of Present Illness Date/Time: 01/18/25 17:59 Chief Complaint: AMS Narrative: This is a 74-year-old female patient with history of previous CVA, bipolar disorder, anxiety, failure to thrive, GERD, hyperlipidemia, hypertension, chronic hyponatremia, asthma, epilepsy not currently treated with any anti blood to medications and previous left BKA who resides at [facility] was brought to the emergency room for uncertain complaints according to the emergency room physician. According to staff at the residential patient recently started clonidine clonazepam and tizanidine in after receiving them was difficult waking today. Patient is now alert, oriented to self, location and year and has no acute complaints. She states she is unsure why the residential sent her to the emergency room today. The emergency room workup was performed showing normal vital signs, EKG showed normal sinus rhythm 60 beats per minute with left ventricular hypertrophy otherwise no ischemic changes. Patient's chest x-ray was without any acute abnormalities. Metabolic panel and CBC are unremarkable. Troponin is normal. Coags are normal. Urinalysis however does show 2+ leukocyte esterase, with 21- 50 wbc's and 4+ bacteria and no epithelials. Patient's sodium is noted to be 121, however patient has a history of chronic hyponatremia. ER is requesting admission at this time in the setting of altered mental status, hyponatremia and acute UTI for which she has received Rocephin. Urine culture pending. Review of Systems Review of Systems: All systems reviewed & are unremarkable except as noted in HPI and below PMFSH Past Medical History Medical History (Updated 01/18/25 @ 18:10 by MICHI English) History of atrial fibrillation Failure to thrive CVA (cerebral vascular accident) Chronic anticoagulation Kidney stone Chronic anemia Chronic respiratory failure with hypoxia, on home oxygen therapy Bipolar disorder Gastroesophageal reflux disease Hyperlipidemia Hypertension Obstructive sleep apnea intolerant to CPAP Left tibial fracture Chronic hyponatremia Shingles Anxiety Depression Gastroparesis Diverticulitis Asthma Epilepsy no longer on medication Seasonal allergies Surgical History Surgical History History of left above knee amputation History of right shoulder replacement History of cholecystectomy History of left knee replacement History of hysterectomy History of open reduction and internal fixation (ORIF) procedure Left tibia and right ankle. History of appendectomy History of tonsillectomy Family History Family History Mother Suicide Depression Heart disease Hypertension Heart failure Sibling Suicide Father Diabetes mellitus Emphysema lung Social History Social History Social History: Surrogate medical decision maker: Martina Rodney, daughter. Code status: Full code. Smoking status: Never smoker Second hand tobacco smoke exposure: No Alcohol intake: never Substance use: never Substance use type: does not use Do You Feel Safe in your Home?: Yes Lack of Transportation: No Lack of Food: Never True Current Housing: I Have Housing Concerned About Future Housing: No Difficulty Paying Gas/Electric Bills: No Difficulty Paying for Meds: No Currently Unemployed: No Education: Decline to Answer Difficulty w/ Childcare or Family Care: No [place] Occupation/Education: retired Spiritual care concerns: No Agree to blood products: No Meds Home Medications and Allergies Home Medications ?Medication ?Instructions ?Recorded ?Confirmed ?Type atorvastatin 10 mg tablet 10 mg PO HS 09/09/19 09/15/24 History cholecalciferol (vitamin D3) 10 5,000 unit PO DAILY 09/09/19 09/15/24 History mcg (400 unit) tablet fluticasone propionate 50 2 spray intranasal DAILY 09/09/19 09/15/24 History mcg/actuation nasal spray,suspension vitamin E 268 mg (400 unit) capsule 800 unit PO DAILY 09/09/19 09/15/24 History docusate sodium 100 mg tablet 100 mg PO DAILY PRN Constipation 05/31/20 09/15/24 History albuterol sulfate 90 mcg/actuation 1 inh inhalation DAILY PRN 04/23/24 09/15/24 History aerosol inhaler sob/wheezing amlodipine 10 mg tablet 10 mg PO DAILY 04/23/24 09/15/24 History bisacodyl 5 mg tablet,delayed 10 mg PO HS PRN Constipation 04/23/24 09/15/24 History release (Dulcolax (bisacodyl)) guaifenesin 1,200 mg tablet, 1,200 mg PO BID 04/23/24 09/15/24 History extended release 12 hr (Mucinex) memantine 5 mg tablet 5 mg PO BID 04/23/24 09/15/24 History metoprolol tartrate 100 mg tablet 100 mg PO BID 04/23/24 09/15/24 History ondansetron HCl 4 mg tablet 4 mg PO TID 04/23/24 09/15/24 History polyethylene glycol 3350 17 17 g PO DAILY PRN Constipation 04/23/24 09/15/24 History gram/dose oral powder (Miralax) sodium chloride 0.65 % nasal spray 2 spray intranasal PRN PRN 04/23/24 09/15/24 History aerosol Congestion vitamin B complex 1 tablet PO DAILY 04/23/24 09/15/24 History pregabalin 150 mg capsule (Lyrica) 150 mg PO BID #14 caps 05/04/24 09/15/24 Rx diclofenac sodium 1 % topical gel 2 g topical BID PRN moderate pain 08/06/24 09/15/24 History (Voltaren Arthritis Pain) (scale score 5-6) isosorbide mononitrate 30 mg 30 mg PO DAILY 08/06/24 09/15/24 History tablet,extended release 24 hr lidocaine 5 % topical patch 2 patch topical DAILY 08/06/24 09/15/24 History (Lidoderm) magnesium hydroxide 400 mg/5 mL 30 ml PO DAILY PRN constipation 08/06/24 09/15/24 History oral suspension (Gentle Laxative (magnesium hydroxide)) hydralazine 10 mg tablet 10 mg PO QID #30 tabs 08/14/24 09/15/24 Rx peg 325-[id number] 1 1 drp EACH EYE QID PRN Dry Eye(S) 08/14/24 09/15/24 Rx %-0.2 %-0.2 % eye drops #30 mL (Artificial Tears ([id number])) clonidine HCl 0.1 mg tablet 0.1 mg PO DAILY 09/07/24 09/15/24 History furosemide 20 mg tablet (Lasix) 20 mg PO BID 09/07/24 09/15/24 History isosorbide dinitrate 30 mg tablet 30 mg PO QID 09/07/24 09/15/24 History rivaroxaban 20 mg tablet (Xarelto) 20 mg PO DAILY@1700 #60 tabs 10/07/24 Rx furosemide 20 mg tablet (Lasix) 10 mg (1/2 x 20 mg) PO DAILY #30 10/12/24 Rx tabs irbesartan 150 mg tablet 300 mg (2 x 150 mg) PO QAM #30 tabs 10/12/24 Rx oxycodone-acetaminophen 5 mg-325 1 tablet PO Q8H PRN Pain Rated 10/12/24 Rx mg tablet 7-10 #10 tabs sodium chloride 1,000 mg soluble 1,000 mg PO TID #90 tabs 10/12/24 Rx tablet Allergies Allergy/AdvReac Type Severity Reaction Status Date / Time Fish Containing Products Allergy Severe Dyspnea / Verified 04/23/24 19:11 SOB Iodinated Contrast Media Allergy Intermediate HIVES, RED Verified 04/27/24 08:14 FACE iodine Allergy Unknown Unknown Verified 04/23/24 19:11 Barbiturates Allergy Unknown Verified 04/23/24 19:11 bupivacaine Allergy Unknown Verified 04/23/24 20:51 diazepam (From Valium) Allergy Unknown Verified 04/23/24 19:11 latex Allergy Unknown Verified 04/23/24 19:11 menthol Allergy Unknown Verified 04/23/24 20:51 Sulfa (Sulfonamide Allergy Unknown Verified 04/23/24 19:11 Antibiotics) thiopental (From Pentothal) Allergy Unknown Verified 04/27/24 08:14 wool Allergy Unknown Verified 04/23/24 20:51 Vital Signs Vital Signs - 24 hr 01/18/25 12:38 01/18/25 13:31 01/18/25 14:16 Temperature 98.1 F 97.9 F Pulse Rate 62 59 L 60 Respiratory Rate 16 12 14 Blood Pressure 128/57 L 110/49 L 132/56 L Pulse Oximetry 94 93 94 Oxygen Delivery Room Air 01/18/25 15:00 01/18/25 15:59 01/18/25 16:31 Temperature 97.8 F 97.9 F 97.9 F Pulse Rate 55 L 68 66 Respiratory Rate 13 15 12 Blood Pressure 110/68 146/68 H 173/64 H Pulse Oximetry 94 98 99 Oxygen Delivery 01/18/25 17:16 Temperature 97.7 F Pulse Rate 69 Respiratory Rate 19 Blood Pressure 164/68 H Pulse Oximetry 96 Oxygen Delivery Exam Const: General: comfortable and no acute distress Other: Female pt sitting up in bed at this time in no acute distress. HENMT: Face/Nose/Sinus: Normal nares present Mouth: Yes moist mucous membra hakan Eyes: General: appearance normal, both eyes and all related structures Sclera: sclerae normal Pupils: Equal, round and reactive pupils present Neck: Neck: supple and no JVD Resp: Effort & Inspection: normal respiratory effort Auscultation: clear to auscultation bilaterally Cardio: Rate: regular rate Rhythm: regular rhythm Heart sounds: no gallops, no murmurs and no rubs GI: Inspection: non-distended GI Palp: Yes Soft to palpation and No Tenderness to palpation present (GI) Auscultation: normal bowel sounds Skin: General skin exam: normal color, no rashes or lesions noted and no erythema Lesions: no lesions noted Rashes: no rashes noted Wounds: no wounds Neuro: Speech: normal speech Other: Generalized, non-focal weakness. Extrem: Other: Left BKA Psych: Mental Status: mental status grossly normal Affect: normal affect H&P: Results Labs Labs: Short CBC 01/18/25 Range/Units 13:44 WBC 10.3 H (4.5-10.0) K/mm3 Hgb 11.2 L (12.0-15.0) g/dL Hct 33.9 L (37.0-47.0) % Plt Count 341 D (150-375) k/mm3 BMP 01/18/25 13:44 Sodium 121 L Potassium 4.3 Chloride 83 L Carbon Dioxide 30 BUN 13 Creatinine 0.64 L Glucose 104 Calcium 8.9 Cardiac Enzymes 01/18/25 01/18/25 Range/Units 13:44 17:02 Troponin I 0.015 0.012 (0.000-0.034) ng/mL Liver Function 01/18/25 Range/Units 13:44 Total Bilirubin 0.3 (0.2-1.3) mg/dL AST 23 (14-36) U/L ALT 15 (6-35) U/L Alkaline Phosphatase 80 (38-126) U/L Albumin 3.9 (3.5-5.1) g/dL Urine 01/18/25 Range/Units 13:30 Urine Color Yellow (Yellow) Urine Appearance Clear (Clear) Urine pH 7.0 (5.0-9.0) Ur Specific [place] 1.007 (1.001-1.035) Urine Protein 2+ H (Negative) mg/dL Urine Glucose (UA) Negative (Negative) mg/dL Assessment and Plan Assessment and plan (1) Polypharmacy: Code(s): Z79.899 - Other assisted (current) drug therapy Status: Acute Assessment and Plan: * Symptoms being difficult to awaken most likely contributing to the administration clonidine, clonazepam and tizanidine the same time. * Recommend withholding these medications from administration concurrently and timing differently. * Continue to monitor and trend labs and vital signs. (2) Hyponatremia: Code(s): E87.1 - Hypo-osmolality and hyponatremia Status: Acute Assessment and Plan: * Acute on chronic exacerbation. * Patient's baseline sodium is in the mid to high 120s. * IV fluids of normal saline 75 mL/hour initiated. * Check urine sodium and osmolality as well as serum osmolality to consider pote ntial SIADH. * Trend daily labs (3) Urinary tract infection: Code(s): N39.0 - Urinary tract infection, site not specified Status: Acute Assessment and Plan: * Continue Rocephin acute 24 hours * Await results of urine culture (4) HTN (hypertension): Qualifiers: Hypertension type: essential hypertension Qualified Code(s): I10 - Essential (primary) hypertension Code(s): I10 - Essential (primary) hypertension Status: Chronic Assessment and Plan: * Blood pressure currently controlled 110/68. * Reorder home medications once they have been verified. * Trend blood pressure and adjust treatment as necessary. * Cardiac diet (5) HLD (hyperlipidemia): Qualifiers: Hyperlipidemia type: unspecified Qualified Code(s): E78.5 - Hyperlipidemia, unspecified Code(s): E78.5 - Hyperlipidemia, unspecified Status: Chronic Assessment and Plan: * Continue statin therapy once home meds are verified * Heart healthy diet (6) Gastroesophageal reflux disease: Qualifiers: Esophagitis presence: esophagitis presence not specified Qualified Code(s): K21.9 - Gastro-esophageal reflux disease without esophagitis Code(s): K21.9 - Gastro-esophageal reflux disease without esophagitis Status: Chronic Assessment and Plan: * Famotidine ordered daily (7) Anemia: Qualifiers: Anemia type: unspecified type Qualified Code(s): D64.9 - Anemia, unspecified Code(s): D64.9 - Anemia, unspecified Status: Chronic Assessment and Plan: * Chronic stable with H&H of 11.2 and 33.9. * Trend with daily labs. (8) History of atrial fibrillation: Code(s): Z86.79 - Personal history of other diseases of the circulatory system Status: Chronic Assessment and Plan: * History of only. Patient currently in sinus rhythm. * Continue anticoagulation. Quality VTE Prophylaxis VTE prophylaxis: pharmacologic ordered Hospitalist MIPS Advance Care Plan I have confirmed that the patient's Advanced Care Plan is present, code status is documented, or surrogate decision maker is listed in patient medical record.: Yes Medication Reconciliation I have utilized all available resources to obtain, update and review the patients current medications (includes all prescriptions, OTC, herbals, cannabis, and nutritional supplements).: Yes
--- NOTE | 2025-01-18 18:21 | ADMGEN ---
This patient, Celestina Ewing, was admitted to Medical Room 346-01. Patient/family oriented to hospital policies and general routines including ID bracelet, bed and alarms, visiting hours, pain management, procedures, bathroom and other care routines, personal items, smoking policy, room service/diet, and visiting hours. Information on how to activate the Rapid Response Team has been discussed. Patient/Family are encouraged to report perceived risks to care and to ask questions if they do not understand what they are told or what they should do.
[2025-01-18] MEDS: SODIUM CHLORIDE 0.9% IV 1,000 ML 75 ML IV CONT (18:48)
[2025-01-18 19:07] LABS: Troponin I < 0.012 ng/mL (0.000-0.034)
[2025-01-18] MEDS: oxyCODONE/ACETAMINOPHEN (*CRX) 5-325 MG TABLET 1 TABLET PO (23:51)
[2025-01-18] MEDS: clonazePAM (*CRX) 0.5 MG TABLET PO (23:51)
[2025-01-18] MEDS: ZOLPIDEM TARTRATE (*CRX) 5 MG TABLET PO ×2 (23:52→23:54)
[2025-01-18] MEDS: FAMOTIDINE 10 MG TABLET PO (23:52)
[2025-01-18] MEDS: ATORVASTATIN 10 MG TABLET PO ×2 (23:52→23:55)
[2025-01-19 05:32] VITALS: BP 165/78; PULSE 77; RESP 18; TEMP 36.8; O2SAT 96
[2025-01-19 07:26] LABS: Basophils Percent Auto 0.5 % (0.2-1.2); Eosinophils Absolute Auto 0.2 K/mm3 (0-0.3); Eosinophils Percent Auto 2.9 % (0-4.4); Hemoglobin 10.9 g/dL (12.0-15.0); Immature Granulocyte Absolute 0.02 K/mm3 (0.00-0.031); Immature Granulocyte Percent A 0.2 % (0-0.5); Lymphocytes Absolute Auto 1.33 K/mm3 (0.9-3.2); Lymphocytes Percent Auto 16.5 % (18.3-44.2); Mean Corpuscular HGB Conc 32.1 g/dl (32-36); Mean Corpuscular Hemoglobin 27.3 pg (26-34); Mean Corpuscular Volume 85.2 fl (80-100); Mean Platelet Volume 10.5 fl (7.4-10.4); Monocytes Absolute Auto 1.2 K/mm3 (0.1-0.6); Monocytes Percent Auto 14.3 % (2.6-8.5); Neutrophils Absolute Auto 5.3 K/mm3 (1.3-6.7); Neutrophils Percent Auto 65.6 % (45.5-73.1); Platelet Count Result 266 k/mm3 (150-375); Red Blood Count 3.99 M/mm3 (4.2-5.4); Red Cell Distribution Width 14.9 % (11.5-14.5); White Blood Count 8.1 K/mm3 (4.5-10.0)
--- NOTE | 2025-01-19 07:44 | PM.IMPN ---
Progress Note: A&P Assessment and Plan (1) Hyponatremia: Code(s): E87.1 - Hypo-osmolality and hyponatremia Status: Acute Assessment and Plan: Acute on chronic exacerbation. Patient's baseline sodium is in the mid to high 120s. IV fluids of normal saline 75 mL/hour initiated. Check urine sodium and osmolality as well as serum osmolality to consider potential SIADH. Trend daily labs 01/19: Na 127, near pts baseline (2) Polypharmacy: Code(s): Z79.899 - Other snf (current) drug therapy Status: Acute Assessment and Plan: Symptoms being difficult to awaken most likely contributing to the administration clonidine, clonazepam and tizanidine the same time. Recommend withholding these medications from administration concurrently and timing differently. Continue to monitor and trend labs and vital signs. Tizanidine on hold - Continue Clonidine and Clonazepam, monitor and adjust as necessary 01/19 - pt a&ox3, very pleasant (3) Urinary tract infection: Code(s): N39.0 - Urinary tract infection, site not specified Status: Acute Assessment and Plan: Continue Rocephin acute 24 hours Await results of urine culture (4) HTN (hypertension): Qualifiers: Hypertension type: essential hypertension Qualified Code(s): I10 - Essential (primary) hypertension Code(s): I10 - Essential (primary) hypertension Status: Chronic Assessment and Plan: Blood pressure currently controlled 110/68. Reorder home medications once they have been verified. Trend blood pressure and adjust treatment as necessary. Cardiac diet (5) HLD (hyperlipidemia): Qualifiers: Hyperlipidemia type: unspecified Qualified Code(s): E78.5 - Hyperlipidemia, unspecified Code(s): E78.5 - Hyperlipidemia, unspecified Status: Chronic Assessment and Plan: Continue statin therapy once home meds are verified Heart healthy diet (6) Gastroesophageal reflux disease: Qualifiers: Esophagitis presence: esophagitis presence not specified Qualified Code(s): K21.9 - Gastro-esophageal reflux disease without esophagitis Code(s): K21.9 - Gastro-esophageal reflux disease without esophagitis Status: Chronic Assessment and Plan: Famotidine ordered daily (7) Anemia: Qualifiers: Anemia type: unspecified type Qualified Code(s): D64.9 - Anemia, unspecified Code(s): D64.9 - Anemia, unspecified Status: Chronic Assessment and Plan: Chronic stable with H&H of 11.2 and 33.9. Trend with daily labs. (8) History of atrial fibrillation: Code(s): Z86.79 - Personal history of other diseases of the circulatory system Status: Chronic Assessment and Plan: History of only. Patient currently in sinus rhythm. Continue anticoagulation. Subjective Date/time seen: 01/19/25 07:44 Interval history: 74-year-old female patient with history of previous CVA, bipolar disorder, anxiety, failure to thrive, GERD, hyperlipidemia, HTN, chronic hyponatremia, asthma, epilepsy not currently treated with any anti blood to medications and previous left BKA who resides at [facility] was brought to the emergency room for uncertain complaints according to the ER physician. 01/19/2025 Patient sitting comfortably in bed at time of examination. Denies any chest pain, shortness a breath, nausea/vomiting, abdominal pain. Sodium 127, up from 121 yesterday. Chloride also increased from 83 yesterday to 91 today. Sodium and chloride chronically low, baseline sodium chloride appear to be around high 120s and low 90s respectfully. Urine culture still pending. Patient otherwise has no complaints. Nephro consult still pending, likely discharge tomorrow pending clearance from Nephrology. Review of Systems Review of Systems: All systems reviewed & are unremarkable except as noted in HPI and below Exam Const: General: comfortable and no acute distress Other: Female pt sitting up in bed at this time in no acute distress. HENMT: Face/Nose/Sinus: Normal nares present Mouth: Yes moist mucous membranes Eyes: General: appearance normal, both eyes and all related structures Sclera: sclerae normal Pupils: Equal, round and reactive pupils present Neck: Neck: supple and no JVD Resp: Effort & Inspection: normal respiratory effort Auscultation: clear to auscultation bilaterally Cardio: Rate: regular rate Rhythm: regular rhythm Heart sounds: no gallops, no murmurs and no rubs GI: Inspection: non-distended Auscultation: normal bowel sounds Skin: General skin exam: normal color, no rashes or lesions noted, no erythema, No lesion and No rashes Lesions: no lesions noted Rashes: no rashes noted Wounds: no wounds Neuro: Cranial nerves: Yes Equal, round and reactive pupils present Speech: normal speech Other: Generalized, non-focal weakness. Extrem: Other: Left BKA Psych: Mental Status: mental status grossly normal Affect: normal affect Objective Data Vital Signs Vital Signs: Vital Signs - 24 hr 01/18/25 12:38 01/18/25 13:31 01/18/25 14:16 Temperature 98.1 F 97.9 F Pulse Rate 62 59 L 60 Respiratory Rate 16 12 14 Blood Pressure 128/57 L 110/49 L 132/56 L Pulse Oximetry 94 93 94 Oxygen Delivery Room Air 01/18/25 15:00 01/18/25 15:59 01/18/25 16:31 Temperature 97.8 F 97.9 F 97.9 F Pulse Rate 55 L 68 66 Respiratory Rate 13 15 12 Blood Pressure 110/68 146/68 H 173/64 H Pulse Oximetry 94 98 99 Oxygen Delivery 01/18/25 17:16 01/18/25 20:01 01/18/25 22:22 Temperature 97.7 F 97.9 F Pulse Rate 69 71 Respiratory Rate 19 18 Blood Pressure 164/68 H 169/72 H Pulse Oximetry 96 93 94 Oxygen Delivery Room Air 01/19/25 05:32 Temperature 98.2 F Pulse Rate 77 Respiratory Rate 18 Blood Pressure 165/78 H Pulse Oximetry 96 Oxygen Delivery Intake/Output Intake/Output: Intake & Output 01/16/25 01/17/25 01/18/25 01/19/25 23:59 23:59 23:59 23:59 Intake Total 50 300 Output Total 200 850 Balance -150 -550 Meds/Results Medications: Active Medications Generic Name Dose Route Start Last Admin Trade Name Freq PRN Reason Stop Dose Admin Amlodipine Besylate 10 mg 01/19/25 09:00 Amlodipine Besylate 10 Mg Tablet PO DAILY KELIN Artificial Tears 2 drop 01/18/25 22:28 Artificial Tears Ophth Soln 15 Ml Bottle EACH EYE BID PRN dry eye(s) Atorvastatin Calcium 10 mg 01/18/25 23:40 01/18/25 23:55 Atorvastatin 10 Mg Tablet PO 10 mg HS KELIN Administration Bisacodyl 10 mg 01/18/25 22:16 Bisacodyl 5 Mg Tablet Ec PO HS PRN Constipation Buspirone HCl 10 mg 01/19/25 09:00 Buspirone Hcl 10 Mg Tablet PO TID KELIN Clonazepam 0.5 mg 01/18/25 22:20 01/18/25 23:51 Clonazepam (*Crx) 0.5 Mg Tablet PO 0.5 mg Q12HR KELIN Administration Clonidine HCl 0.1 mg 01/19/25 09:00 Clonidine Hcl 0.1 Mg Tablet PO DAILY KELIN Docusate Sodium 200 mg 01/19/25 09:00 Docusate Sodium 100 Mg Capsule PO BID KELIN Famotidine 10 mg 01/18/25 21:00 01/18/25 23:52 Famotidine 10 Mg Tablet PO 10 mg Q12HR KELIN Administration Fluticasone Propionate 1 spray 01/19/25 09:00 Fluticasone Propionate 0.05% Na Spr 16 Gm Btl (*Bkc) NASAL DAILY KELIN Guaifenesin 1,200 mg 01/19/25 09:00 Guaifenesin 12 Hr 600 Mg Tabcr PO Q12HR KELIN Hydralazine HCl 50 mg 01/19/25 09:00 Hydralazine Hcl 50 Mg Tablet PO TID KELIN Hydrochlorothiazide 25 mg 01/19/25 09:00 Hydrochlorothiazide 25 Mg Tablet PO DAILY KELIN Ceftriaxone Sodium 1 gm in 50 mls @ 100 mls/hr 01/19/25 16:00 Rocephin 1 Gm/Ns 50 Ml IVPB Q24H KELIN Sodium Chloride 1,000 mls @ 60 mls/hr 01/18/25 15:42 01/18/25 15:52 Normal Saline Iv IV CONT 01/19/25 08:21 60 mls/hr .[id number] STA Administration Sodium Chloride 1,000 mls @ 75 mls/hr 01/18/25 16:05 01/18/25 18:48 Normal Saline Iv IV CONT 75 mls/hr .[id number] KELIN Administration Irbesartan 300 mg 01/19/25 09:00 Irbesartan 150 Mg Tablet PO QAM KELIN Isosorbide Mononitrate 30 mg 01/19/25 09:00 Isosorbide Mononitrate 30 Mg Tab.Er.24h PO DAILY KELIN Lactulose 30 gm 01/19/25 09:00 Lactulose 20 Gm/30 Ml Udc PO BID KELIN Lidocaine 2 patch 01/19/25 21:00 Lidocaine 5% Patch TOPICAL HS KELIN Magnesium Citrate 300 ml 01/18/25 22:16 Magnesium Citrate 300 Ml Btl PO DAILY PRN constipation Memantine 5 mg 01/19/25 09:00 Memantine 5 Mg Tablet PO BID [facility] Metoprolol Tartrate 200 mg 01/19/25 09:00 Metoprolol Tartrate 50 Mg Tab PO DAILY [facility] Miscellaneous Information 0 each 01/18/25 00:01 Famciclovir Nonformulary Can Pt Bring From Home? XX 02/17/25 00:00 CLARIFY [facility] Non-Formulary Medication 250 mg 01/18/25 22:30 Famciclovir PO 02/17/25 22:29 Q12H [facility] Ondansetron HCl 4 mg 01/19/25 09:00 Ondansetron Hcl Odt 4 Mg Tablet PO TID [facility] Oxycodone/Acetaminophen 1 tablet 01/18/25 22:16 01/18/25 23:51 Oxycodone/Acetaminophen (*Crx) 5-325 Mg Tablet PO 1 tablet Q8H PRN Administration Pain Rated 7-10 Pantoprazole Sodium 40 mg 01/19/25 09:00 Pantoprazole 40 Mg Tablet PO QAM [facility] Polyethylene Glycol 17 gm 01/18/25 09:00 01/18/25 23:36 Polyethylene Glycol 3350 17 Gm Powd.Pack PO Not Given DAILY [facility] Potassium Chloride 10 meq 01/19/25 09:00 Potassium Chloride 10 Meq Er Tablet PO DAILY [facility] Pregabalin 150 mg 01/19/25 09:00 Pregabalin (*Crx) 75 Mg Capsule PO BID [facility] Primidone 200 mg 01/19/25 09:00 Primidone 50 Mg Tablet BY MOUTH BID [facility] Rivaroxaban 20 mg 01/19/25 17:00 Rivaroxaban 20 Mg Tablet PO DAILY@1700 [facility] Senna/Docusate Sodium 2 tab 01/19/25 09:00 Senna/Docusate Sodium Tablet PO BID [facility] Sodium Chloride 1 gm 01/19/25 09:00 Sodium Chloride 1 Gm Tablet PO TID [facility] Spironolactone 25 mg 01/19/25 09:00 Spironolactone 25 Mg Tablet PO DAILY [facility] Venlafaxine HCl 37.5 mg 01/19/25 09:00 Venlafaxine Hcl Xr 37.5 Mg Cap PO DAILY [facility] Vitamin E 800 unit 01/19/25 09:00 Vitamin E 400 Unit Capsule PO DAILY [facility] Zolpidem Tartrate 5 mg 01/18/25 23:40 06/26/25 23:54 Zolpidem Tartrate (*Crx) 5 Mg Tablet PO 5 mg HS KELIN Administration Radiology Results: ITS Impressions Chest X-Ray 01/18/25 13:59 IMPRESSION: No acute cardiopulmonary pathology. Cardiomegaly. Labs Labs: Laboratory Results - last 24 hr 01/18/25 01/18/25 01/18/25 13:30 13:44 17:02 WBC 10.3 H RBC 4.03 L Hgb 11.2 L Hct 33.9 L MCV 84.1 MCH 27.8 MCHC 33.0 RDW 14.6 H Plt Count 341 D MPV 10.0 Immature Gran % (Auto) 0.4 Neut % (Auto) 72.1 Lymph % (Auto) 13.3 L Wilkinson % (Auto) 11.9 H Eos % (Auto) 1.9 Baso % (Auto) 0.4 Lymph # (Auto) 1.37 Wilkinson # (Auto) 1.2 H Eos # (Auto) 0.2 Baso # (Auto) 0.0 Abs Immat Gran (auto) 0.04 H Absolute Neuts (auto) 7.4 H Absolute Nucleated RBC 0.000 Nucleated RBC % 0.0 PT 14.1 INR 1.1 APTT 34.1 Sodium 121 L Potassium 4.3 Chloride 83 L Carbon Dioxide 30 Anion Gap 8 BUN 13 Creatinine 0.64 L Estim Creat Clear Calc 69 Estimated GFR > 60 Glucose 104 Calcium 8.9 Total Bilirubin 0.3 AST 23 ALT 15 Alkaline Phosphatase 80 Troponin I 0.015 0.012 Total Protein 6.8 Albumin 3.9 Urine Color Yellow Urine Appearance Clear Urine pH 7.0 Ur Specific [place] 1.007 Urine Protein 2+ H Urine Glucose (UA) Negative Urine Ketones Negative Ur Blood (Man) Negative Urine Nitrate Negative Urine Bilirubin Negative Urine Urobilinogen 0.2 Leukocyte Esterase Rfl 2+ H Urine RBC 0-2 Urine WBC 21-50 H Ur Squamous Epith Cells None seen Urine Bacteria 4+ Urine Casts 0-2 01/18/25 01/19/25 18:29 06:21 WBC 8.1 RBC 3.99 L Hgb 10.9 L Hct 34.0 L MCV 85.2 MCH 27.3 MCHC 32.1 RDW 14.9 H Plt Count 266 MPV 10.5 H Immature Gran % (Auto) 0.2 Neut % (Auto) 65.6 Lymph % (Auto) 16.5 L Wilkinson % (Auto) 14.3 H Eos % (Auto) 2.9 Baso % (Auto) 0.5 Lymph # (Auto) 1.33 Wilkinson # (Auto) 1.2 H Eos # (Auto) 0.2 Baso # (Auto) 0.0 Abs Immat Gran (auto) 0.02 Absolute Neuts (auto) 5.3 Absolute Nucleated RBC 0.000 Nucleated RBC % 0.0 PT INR APTT Sodium Potassium Chloride Carbon Dioxide Anion Gap BUN Creatinine Estim Creat Clear Calc Estimated GFR Glucose Calcium Total Bilirubin AST ALT Alkaline Phosphatase Troponin I < 0.012 Total Protein Albumin Urine Color Urine Appearance Urine pH Ur Specific [place] Urine Protein Urine Glucose (UA) Urine Ketones Ur Blood (Man) Urine Nitrate Urine Bilirubin Urine Urobilinogen Leukocyte Esterase Rfl Urine RBC Urine WBC Ur Squamous Epith Cells Urine Bacteria Urine Casts Quality VTE Prophylaxis VTE prophylaxis: pharmacologic ordered
[2025-01-19 08:16] LABS: Alanine Aminotransferase 15 U/L (6-35); Albumin Level 3.9 g/dL (3.5-5.1); Alkaline Phosphatase 100 U/L (38-126); Anion Gap 7 mmol/L (4-12); Aspartate Amino Transferase 23 U/L (14-36); Bilirubin,Total 0.2 mg/dL (0.2-1.3); Blood Urea Nitrogen 10 mg/dL (7-17); Calcium 8.9 mg/dL (8.4-10.2); Carbon Dioxide 29 mmol/L (22-30); Chloride 91 mmol/L (98-107); Estimated CRCL calculation 76 ml/min; Estimated Glomerular Filt Rate > 60; Glucose 84 mg/dL (65-110); Magnesium 1.6 mg/dL (1.6-2.3); Potassium 3.9 mmol/L (3.4-5.0); Sodium 127 mmol/L (137-145); Total Protein 6.8 g/dL (6.3-8.2)
[2025-01-19 09:18] VITALS: O2SAT 99
[2025-01-19] MEDS: IRBESARTAN 150 MG TABLET 300 MG PO (09:26)
[2025-01-19 09:31] VITALS: PULSE 86
[2025-01-19] MEDS: POTASSIUM CHLORIDE 10 MEQ ER TABLET PO (09:31)
[2025-01-19] MEDS: clonazePAM (*CRX) 0.5 MG TABLET PO ×2 (09:31→20:49)
[2025-01-19] MEDS: amLODIPine BESYLATE 10 MG TABLET PO (09:31)
[2025-01-19] MEDS: METOPROLOL TARTRATE 50 MG TAB 200 MG PO (09:31)
[2025-01-19] MEDS: hydroCHLOROthiazide 25 MG TABLET PO (09:32)
[2025-01-19] MEDS: DOCUSATE SODIUM 100 MG CAPSULE 200 MG PO ×2 (09:32→16:57)
[2025-01-19] MEDS: SENNA/DOCUSATE SODIUM TABLET 2 TAB PO ×2 (09:32→16:58)
[2025-01-19] MEDS: MEMANTINE 5 MG TABLET PO ×2 (09:32→16:58)
[2025-01-19] MEDS: PREGABALIN (*CRX) 75 MG CAPSULE 150 MG PO ×2 (09:33→16:58)
[2025-01-19] MEDS: hydrALAZINE HCL 50 MG TABLET PO ×3 (09:33→16:58)
[2025-01-19] MEDS: ONDANSETRON HCL ODT 4 MG TABLET PO ×3 (09:33→16:58)
[2025-01-19] MEDS: guaiFENesin 12 HR 600 MG TABCR 1200 MG PO ×2 (09:33→20:49)
[2025-01-19] MEDS: PANTOPRAZOLE 40 MG TABLET PO (09:33)
[2025-01-19] MEDS: PRIMIDONE 50 MG TABLET 200 MG BY MOUTH ×2 (09:33→16:58)
[2025-01-19] MEDS: busPIRone HCL 10 MG TABLET PO ×3 (09:33→16:58)
[2025-01-19] MEDS: ISOSORBIDE MONONITRATE 30 MG TAB.ER.24H PO (09:34)
[2025-01-19] MEDS: VITAMIN E 400 UNIT CAPSULE 800 UNIT PO (09:34)
[2025-01-19] MEDS: VENLAFAXINE HCL XR 37.5 MG CAP PO (09:35)
[2025-01-19] MEDS: SPIRONOLACTONE 25 MG TABLET PO (09:35)
[2025-01-19] MEDS: cloNIDine HCL 0.1 MG TABLET PO (09:35)
[2025-01-19] MEDS: SODIUM CHLORIDE 1 GM TABLET PO (09:35)
[2025-01-19] MEDS: FLUTICASONE PROPIONATE 0.05% NA SPR 16 GM BTL (*BKC) 1 SPRAY NASAL (09:43)
[2025-01-19] MEDS: SODIUM CHLORIDE 0.9% IV 1,000 ML 75 ML IV CONT (09:53)
[2025-01-19 10:38] LABS: Sodium Urine Random 50 meq/L
--- NOTE | 2025-01-19 11:12 | P.CONNP_ITS ---
Assessment and Plan Assessment and plan (1) Hyponatremia: Code(s): E87.1 - Hypo-osmolality and hyponatremia Status: Acute Assessment and Plan: the patient has chronic hyponatremia. This is likely due to multiple issues and occluding pulmonary disease, proton pump inhibitor, poor osmolar intake with more generous fluid intake and in the past narcotics and a new development with the multiple cerebellar strokes.. Her baseline sodium seems to run in the high 120s and the low 130s. This admission she had a sodium of 121. He is on hydrochlorothiazide. This can make the sodium worse, and she is also allergic to sulfa. So she definitely should not take any of this going forward. She is also back on her pantoprazole. Will stop the hydrochlorothiazide, stop the pantoprazole. The sodium is trending toward over correcting. Will stop the fluids and the salt tablets and recheck the sodium level later today. (2) AMS (altered mental status): Code(s): R41.82 - Altered mental status, unspecified Status: Acute Assessment and Plan: This seems at baseline right now (3) Obstructive sleep apnea: Code(s): G47.33 - Obstructive sleep apnea (adult) (pediatric) Status: Acute Assessment and Plan: the patient does not tolerate a CPAP m (4) HTN (hypertension): Qualifiers: Hypertension type: essential hypertension Qualified Code(s): I10 - Essential (primary) hypertension Code(s): I10 - Essential (primary) hypertension Status: Chronic Assessment and Plan: her blood pressure is high. She is on amlodipine, losartan, and p.r.n. hydralazine. The patient is on hydralazine, irbesartan, metoprolol And spironolactone. amlodipine was started this morning (5) HLD (hyperlipidemia): Qualifiers: Hyperlipidemia type: unspecified Qualified Code(s): E78.5 - Hyperlipidemia, unspecified Code(s): E78.5 - Hyperlipidemia, unspecified Status: Chronic Assessment and Plan: the patient is on atorvastatin (6) CVA (cerebral vascular accident): Code(s): I63.9 - Cerebral infarction, unspecified Status: Acute Assessment and Plan: neurology is seeing the patient History of Present Illness Reason for Consult Consult date: 01/19/25 Chief Complaint Chief complaint: Acute on Chronic Hyponatremia/UTI/Med Reaction History of Present Illness Narrative: Celestina is a very pleasant 74-year-old lady who has multiple medical problems including bipolar disorder, stroke, kidney stones, hypertension, hyperlipidemia, sleep apnea, shingles, anxiety and depression, diverticulosis, seizure disorder off meds, atrial fibrillation in the past, GERD, and chronic hyponatremia. Her serum sodium general runs in the high She was 120s. she was in the hospital back in September and etiology of the hyponatremia was not discernible. TSH, cortisol, pulmonary, and [employer] etiologies were ruled out. The patient does not have a history of cancer. The patient was treated with fluid restriction, salt tablets, and furosemide. At the time she was here before she was not on hydrochlorothiazide. Now she has come into the hospital with mental status changes. This was ascribed to over medication but also her sodium level was only 121. She was felt to be dehydrated and so she was given some IV fluids overnight and her sodium is up to 127. The patient does not have any symptoms now. Her mental status is normal. Review of Systems 2 Constitutional: Constitutional: Reports no additional constitutional complaints Eyes: Eyes: Reports no additional eye complaints ENT: Reports system reviewed and no additional complaints, except as documented Cardiovascular: Cardiovascular: Reports no additional cardiovascular complaints Respiratory: Respiratory: Reports no additional respiratory complaints Gastrointestinal: Gastrointestinal: Reports no additional gastrointestinal complaints Genitourinary: Genitourinary: Reports no additional female genitourinary complaints Musculoskeletal: Musculoskeletal: Reports no additional musculoskeletal complaints Integumentary/Breasts: Skin/Breast: Reports system reviewed and no additional complaints, except as docu Neurologic: Reports system reviewed and no additional complaints, except as documented Psychiatric: Psychiatric: Reports no additional psychiatric complaints Endocrine: Endocrine: Reports no additional endocrine complaints [facility] Past Medical History Medical History History of atrial fibrillation Failure to thrive CVA (cerebral vascular accident) Chronic anticoagulation Kidney stone Chronic anemia Chronic respiratory failure with hypoxia, on home oxygen therapy Bipolar disorder Gastroesophageal reflux disease Hyperlipidemia Hypertension Obstructive sleep apnea intolerant to CPAP Left tibial fracture Chronic hyponatremia Shingles Anxiety Depression Gastroparesis Diverticulitis Asthma Epilepsy no longer on medication Seasonal allergies Surgical History Surgical History History of left above knee amputation History of right shoulder replacement History of cholecystectomy History of left knee replacement History of hysterectomy History of open reduction and internal fixation (ORIF) procedure Left tibia and right ankle. History of appendectomy History of tonsillectomy Family History Family History Mother Suicide Depression Heart disease Hypertension Heart failure Sibling Suicide Father Diabetes mellitus Emphysema lung Social History Social History Social History: Surrogate medical decision maker: Martina Rodney, daughter. Code status: Full code. Smoking status: Never smoker Second hand tobacco smoke exposure: No Alcohol intake: never Substance use: never Substance use type: does not use Do You Feel Safe in your Home?: Yes Lack of Transportation: No Lack of Food: Never True Current Housing: I Have Housing Concerned About Future Housing: No Difficulty Paying Gas/Electric Bills: No Difficulty Paying for Meds: No Currently Unemployed: No Education: Decline to Answer Difficulty w/ Childcare or Family Care: No Living arrangements: [facility] Occupation/Education: retired Spiritual care concerns: No Agree to blood products: No Meds Home Medications and Allergies Home Medications ?Medication ?Instructions ?Recorded ?Confirmed ?Type fluticasone propionate 50 1 spray intranasal DAILY 09/09/19 01/18/25 History mcg/actuation nasal spray,suspension vitamin E 268 mg (400 unit) capsule 800 unit PO DAILY 09/09/19 01/18/25 History docusate sodium 100 mg tablet 200 mg PO BID Constipation 05/31/20 01/18/25 History amlodipine 10 mg tablet 10 mg PO DAILY 04/23/24 01/18/25 History bisacodyl 5 mg tablet,delayed 10 mg PO HS PRN Constipation 04/23/24 01/18/25 History release (Dulcolax (bisacodyl)) guaifenesin 1,200 mg tablet, 1,200 mg PO BID 04/23/24 01/18/25 History extended release 12 hr (Mucinex) memantine 5 mg tablet 5 mg PO BID 04/23/24 01/18/25 History metoprolol tartrate 100 mg tablet 200 mg PO DAILY 04/23/24 01/18/25 History ondansetron HCl 4 mg tablet 4 mg PO TID 04/23/24 01/18/25 History polyethylene glycol 3350 17 17 g PO DAILY PRN Constipation 04/23/24 01/18/25 History gram/dose oral powder (Miralax) pregabalin 150 mg capsule (Lyrica) 150 mg PO BID #14 caps 05/04/24 01/18/25 Rx isosorbide mononitrate 30 mg 30 mg PO DAILY 08/06/24 01/18/25 History tablet,extended release 24 hr lidocaine 5 % topical patch 2 patch topical HS 08/06/24 01/18/25 History (Lidoderm) magnesium hydroxide 400 mg/5 mL 30 ml PO DAILY PRN constipation 08/06/24 01/18/25 History oral suspension (Gentle Laxative (magnesium hydroxide)) clonidine HCl 0.1 mg tablet 0.1 mg PO DAILY 09/07/24 01/18/25 History rivaroxaban 20 mg tablet (Xarelto) 20 mg PO DAILY@1700 #60 tabs 10/07/24 01/18/25 Rx irbesartan 150 mg tablet 300 mg (2 x 150 mg) PO QAM #30 tabs 10/12/24 01/18/25 Rx oxycodone-acetaminophen 5 mg-325 1 tablet PO Q8H PRN Pain Rated 10/12/24 01/18/25 Rx mg tablet 7-10 #10 tabs sodium chloride 1,000 mg soluble 1,000 mg PO TID #90 tabs 10/12/24 01/18/25 Rx tablet atorvastatin 10 mg tablet (Lipitor) 10 mg PO HS 01/18/25 01/18/25 History buspirone 10 mg tablet 10 mg PO TID 01/18/25 01/18/25 History clonazepam 0.5 mg tablet 0.5 mg PO Q12H 01/18/25 01/18/25 History famciclovir 250 mg tablet 250 mg PO Q12H 01/18/25 01/18/25 History hydralazine 10 mg tablet 50 mg PO TID 01/18/25 01/18/25 History hydrochlorothiazide 25 mg tablet 25 mg PO DAILY 01/18/25 01/18/25 History lactulose 10 gram/15 mL oral 30 g PO BID 01/18/25 01/18/25 History solution (Enulose) magnesium citrate 300 ml PO DAILY PRN constipation 01/18/25 01/18/25 History pantoprazole 40 mg tablet,delayed 40 mg PO QAM 01/18/25 01/18/25 History release (Protonix) polyvinyl alcohol-povidone 0.5 2 drp EACH EYE BID PRN dry eye(s) 01/18/25 01/18/25 History %-0.6 % eye drops (Artificial Tears (polyvinyl alcohol/povidone)) potassium chloride 10 mEq 10 meq PO DAILY 01/18/25 01/18/25 History tablet,extended release primidone 50 mg tablet See Rx Instructions .Route .COMPLEX 01/18/25 01/18/25 History sennosides 8.6 mg-docusate sodium 2 tab-cap PO BID 01/18/25 01/18/25 History 50 mg tablet (Senna Plus) spironolactone 25 mg tablet 25 mg PO DAILY 01/18/25 01/18/25 History tizanidine 2 mg tablet 2 mg PO TID 01/18/25 01/18/25 History venlafaxine 37.5 mg 37.5 mg PO DAILY 01/18/25 01/18/25 History capsule,extended release 24 hr zolpidem 5 mg tablet 5 mg PO HS 01/18/25 01/18/25 History Allergies Allergy/AdvReac Type Severity Reaction Status Date / Time Fish Containing Products Allergy Severe Dyspnea / Verified 04/23/24 19:11 SOB Iodinated Contrast Media Allergy Intermediate HIVES, RED Verified 04/27/24 08:14 FACE iodine Allergy Unknown Unknown Verified 04/23/24 19:11 Barbiturates Allergy Unknown Verified 04/23/24 19:11 bupivacaine Allergy Unknown Verified 04/23/24 20:51 diazepam (From Valium) Allergy Unknown Verified 04/23/24 19:11 latex Allergy Unknown Verified 04/23/24 19:11 menthol Allergy Unknown Verified 04/23/24 20:51 Sulfa (Sulfonamide Allergy Unknown Verified 04/23/24 19:11 Antibiotics) thiopental (From Pentothal) Allergy Unknown Verified 04/27/24 08:14 wool Allergy Unknown Verified 04/23/24 20:51 Vital Signs Vital Signs - 24 hr 01/18/25 12:38 01/18/25 13:31 01/18/25 14:16 Temperature 98.1 F 97.9 F Pulse Rate 62 59 L 60 Respiratory Rate 16 12 14 Blood Pressure 128/57 L 110/49 L 132/56 L Pulse Oximetry 94 93 94 Oxygen Delivery Room Air 01/18/25 15:00 01/18/25 15:59 01/18/25 16:31 Temperature 97.8 F 97.9 F 97.9 F Pulse Rate 55 L 68 66 Respiratory Rate 13 15 12 Blood Pressure 110/68 146/68 H 173/64 H Pulse Oximetry 94 98 99 Oxygen Delivery 01/18/25 17:16 01/18/25 20:01 01/18/25 22:22 Temperature 97.7 F 97.9 F Pulse Rate 69 71 Respiratory Rate 19 18 Blood Pressure 164/68 H 169/72 H Pulse Oximetry 96 93 94 Oxygen Delivery Room Air 01/19/25 05:32 01/19/25 09:18 01/19/25 09:31 Temperature 98.2 F Pulse Rate 77 86 Respiratory Rate 18 Blood Pressure 165/78 H Pulse Oximetry 96 99 Oxygen Delivery Room Air Exam 2 Narrative: Exam Narrative: Well developed well-nourished in no acute distress Skin is warm and dry without rash Head normocephalic atraumatic Eyes normal sclerae and conjunctivae Mouth normal lips teeth and gums Neck no nodes no thyromegaly no carotid bruits Axillae no nodes Back no CVA tenderness Lungs symmetric and clear to auscultation and percussion Heart regular rate and rhythm without rub or gallop Abdomen bowel sounds positive soft nontender, no HSM, masses, or bruits. Extremities no cyanosis, clubbing, or edema Pulses 2+ equal in radial arteries Psychological not anxious or depressed Neuro alert and oriented x3 motor 5/5 cranial nerves 2-12 intact reflexes 2+ and equal in the biceps and patellar tendons cerebellar normal rapid alternating movements Results Lab Results 01/19/25 06:21 01/19/25 06:20 Lab results: Most recent lab results Calcium 8.9 mg/dL (8.4-10.2) 01/19/25 06:20 Magnesium 1.6 mg/dL (1.6-2.3) 01/19/25 06:20
[2025-01-19 13:39] VITALS: BP 139/45; PULSE 66; RESP 18; TEMP 36.3; O2SAT 97
[2025-01-19] MEDS: RIVAROXABAN 20 MG TABLET PO (16:58)
[2025-01-19] MEDS: oxyCODONE/ACETAMINOPHEN (*CRX) 5-325 MG TABLET 1 TABLET PO (17:06)
[2025-01-19] MEDS: ATORVASTATIN 10 MG TABLET PO (20:47)
[2025-01-19] MEDS: ZOLPIDEM TARTRATE (*CRX) 5 MG TABLET PO (20:48)
[2025-01-19] MEDS: LIDOCAINE 5% PATCH 2 PATCH TOPICAL (20:59)
[2025-01-19 22:00] VITALS: BP 156/68; PULSE 75; RESP 18; TEMP 36.8; O2SAT 97
[2025-01-19 22:19] LABS: Sodium 127 mmol/L (137-145)
[2025-01-20] VITALS (7 sets, daily range): BP systolic 128–181; BP diastolic 48–70; PULSE 62–111; RESP 16–20; TEMP 36.3–36.9; O2SAT 91–99
[2025-01-20] MEDS: oxyCODONE/ACETAMINOPHEN (*CRX) 5-325 MG TABLET 1 TABLET PO ×4 (00:49→23:07)
[2025-01-20 06:01] LABS: Basophils Absolute Auto 0.1 K/mm3 (0.0-0.1); Basophils Percent Auto 0.8 % (0.2-1.2); Eosinophils Absolute Auto 0.3 K/mm3 (0-0.3); Eosinophils Percent Auto 3.8 % (0-4.4); Hematocrit 38.3 % (37.0-47.0); Hemoglobin 12.2 g/dL (12.0-15.0); Immature Granulocyte Absolute 0.03 K/mm3 (0.00-0.031); Immature Granulocyte Percent A 0.4 % (0-0.5); Lymphocytes Percent Auto 24.9 % (18.3-44.2); Mean Corpuscular HGB Conc 31.9 g/dl (32-36); Mean Corpuscular Hemoglobin 27.8 pg (26-34); Mean Corpuscular Volume 87.2 fl (80-100); Mean Platelet Volume 10.5 fl (7.4-10.4); Monocytes Absolute Auto 1.1 K/mm3 (0.1-0.6); Monocytes Percent Auto 14.6 % (2.6-8.5); Neutrophils Absolute Auto 4.2 K/mm3 (1.3-6.7); Neutrophils Percent Auto 55.5 % (45.5-73.1); Platelet Count Result 276 k/mm3 (150-375); Red Blood Count 4.39 M/mm3 (4.2-5.4); Red Cell Distribution Width 15.1 % (11.5-14.5); White Blood Count 7.6 K/mm3 (4.5-10.0)
[2025-01-20 06:17] LABS: Alanine Aminotransferase 15 U/L (6-35); Albumin Level 4.3 g/dL (3.5-5.1); Alkaline Phosphatase 100 U/L (38-126); Anion Gap 10 mmol/L (4-12); Aspartate Amino Transferase 25 U/L (14-36); Bilirubin,Total 0.2 mg/dL (0.2-1.3); Blood Urea Nitrogen 11 mg/dL (7-17); Calcium 9.2 mg/dL (8.4-10.2); Carbon Dioxide 28 mmol/L (22-30); Chloride 94 mmol/L (98-107); Estimated CRCL calculation 78 ml/min; Estimated Glomerular Filt Rate > 60; Glucose 88 mg/dL (65-110); Magnesium 1.8 mg/dL (1.6-2.3); Potassium 3.9 mmol/L (3.4-5.0); Sodium 132 mmol/L (137-145); Total Protein 7.5 g/dL (6.3-8.2)
--- NOTE | 2025-01-20 09:17 | P.PNIM_ITS ---
Progress Note: A&P Assessment and Plan (1) Hyponatremia: Code(s): E87.1 - Hypo-osmolality and hyponatremia Status: Acute Assessment and Plan: * Acute on chronic exacerbation. * Patient's baseline sodium is in the mid to high 120s. * IV fluids of normal saline 75 mL/hour initiated. * Check urine sodium and osmolality as well as serum osmolality to consider potential SIADH. * Trend daily labs * 01/19: Na 127, near pts baseline 01/20 * Appreciate nephrology recs, patient has been on hctz - this is discontinued. Stable/improved Na. (2) Polypharmacy: Code(s): Z79.899 - Other nursing home (current) drug therapy Status: Acute Assessment and Plan: * Symptoms being difficult to awaken most likely contributing to the administration clonidine, clonazepam and tizanidine the same time. * Recommend withholding these medications from administration concurrently and timing differently. * Continue to monitor and trend labs and vital signs. * Tizanidine on hold - Continue Clonidine and Clonazepam, monitor and adjust as necessary * 01/19 - pt a&ox3, very pleasant 01/20 * Conversant and alert - cont. to hold tizanidine. Her medication regimen when including this is high risk for her age/comorbidities. (3) Urinary tract infection: Code(s): N39.0 - Urinary tract infection, site not specified Status: Acute Assessment and Plan: * Continue Rocephin acute 24 hours * Await results of urine culture 01/20 * Continue to await cx results, not available as of yet. Plan to transition to orals once resulted or plan for outpatient IV if needed. (4) HTN (hypertension): Qualifiers: Hypertension type: essential hypertension Qualified Code(s): I10 - Essential (primary) hypertension Code(s): I10 - Essential (primary) hypertension Status: Chronic Assessment and Plan: * Blood pressure currently controlled 110/68. * Reorder home medications once they have been verified. * Trend blood pressure and adjust treatment as necessary. * Cardiac diet 01/20 * Norvasc started in the last few days, expect some time to see benefit. Cont. to monitor closely. Can consider outpatient bp log at facility while planning further o/p management at time of discharge. (5) HLD (hyperlipidemia): Qualifiers: Hyperlipidemia type: unspecified Qualified Code(s): E78.5 - Hyperlipidemia, unspecified Code(s): E78.5 - Hyperlipidemia, unspecified Status: Chronic Assessment and Plan: * Continue statin therapy once home meds are verified * Heart healthy diet (6) Gastroesophageal reflux disease: Qualifiers: Esophagitis presence: esophagitis presence not specified Qualified Code(s): K21.9 - Gastro-esophageal reflux disease without esophagitis Code(s): K21.9 - Gastro-esophageal reflux disease without esophagitis Status: Chronic Assessment and Plan: * Famotidine ordered daily 01/20 * Does not present current complaint. (7) Anemia: Qualifiers: Anemia type: unspecified type Qualified Code(s): D64.9 - Anemia, unspecified Code(s): D64.9 - Anemia, unspecified Status: Chronic Assessment and Plan: * Chronic stable with H&H of 11.2 and 33.9. * Trend with daily labs. 01/20 * Stable hgb 12.2 (8) History of atrial fibrillation: Code(s): Z86.79 - Personal history of other diseases of the circulatory system Status: Chronic Assessment and Plan: * History of only. Patient currently in sinus rhythm. * Continue anticoagulation. 01/20 * Rate is stable on exam. Plan Celestina Ewing is a 74 year old female presenting with AMS and UTI - likely underlying polypharm and acute illness. Now improving on IV abx with cx pending. Chronic pain, medications adjusted today to reflect home dosing. Time Spent With Patient Time with patient: 25 - 35 minutes Subjective Date/time seen: 01/20/25 09:17 Interval history: Mrs. Ewing states she is having generalized pain, which is chronic for her. She states she is doing well otherwise. Review of Systems Review of Systems: All systems reviewed & are unremarkable except as noted in HPI and below Exam Narrative: GENERAL APPEARANCE: Appears to be in no acute distress. HEAD: normocephalic atraumatic ENT: Hearing grossly intact, no nasal discharge NECK: Neck supple, trachea midline. CARDIAC: Normal S1/S2. Rhythm is regular. No murmurs, rubs, or gallops. No cyanosis or pallor. Extremities are warm and well perfused. LUNGS: Clear to auscultation without rales, rhonchi, wheezing or diminished breath sounds. Respirations even and unlabored. ABDOMEN: BS positive x 4 quadrants. Soft, nondistended, nontender. No guarding or rebound. MSK: No joint tenderness/swelling, fair strength in all extremities. PERIPHERAL VASCULAR: Peripheral pulses palpable. NEURO: Follows commands. No focal deficits. SKIN: [place] without lesions or eruptions. PSYCH: Stable, no paranoia or delusional thinking. Objective Data Vital Signs Vital Signs: Vital Signs - 24 hr 01/19/25 09:18 01/19/25 09:31 01/19/25 13:39 Temperature 97.3 F L Pulse Rate 86 66 Respiratory Rate 18 Blood Pressure 139/45 L Pulse Oximetry 99 97 Oxygen Delivery Room Air 01/19/25 20:00 01/19/25 22:00 01/20/25 06:00 Temperature 98.2 F 98.2 F Pulse Rate 75 80 Respiratory Rate 18 18 Blood Pressure 156/68 H 181/70 H Pulse Oximetry 97 99 Oxygen Delivery Room Air Intake/Output Intake/Output: Intake & Output 01/17/25 01/18/25 01/19/25 01/20/25 23:59 23:59 23:59 23:59 Intake Total 50 1780 700 Output Total 200 1975 1700 Balance -150 -195 -1000 Meds/Results Medications: Active Medications Generic Name Dose Route Start Last Admin Trade Name Freq PRN Reason Stop Dose Admin Amlodipine Besylate 10 mg 01/19/25 09:00 01/19/25 09:31 Amlodipine Besylate 10 Mg Tablet PO 10 mg DAILY KELIN Administration Artificial Tears 2 drop 01/18/25 22:28 Artificial Tears Ophth Soln 15 Ml Bottle EACH EYE BID PRN dry eye(s) Atorvastatin Calcium 10 mg 01/18/25 23:40 01/19/25 20:47 Atorvastatin 10 Mg Tablet PO 10 mg HS KELIN Administration Bisacodyl 10 mg 01/18/25 22:16 Bisacodyl 5 Mg Tablet Ec PO HS PRN Constipation Buspirone HCl 10 mg 01/19/25 09:00 01/19/25 16:58 Buspirone Hcl 10 Mg Tablet PO 10 mg TID KELIN Administration Clonazepam 0.5 mg 01/18/25 22:20 01/19/25 20:49 Clonazepam (*Crx) 0.5 Mg Tablet PO 0.5 mg Q12HR KELIN Administration Clonidine HCl 0.1 mg 01/19/25 09:00 01/19/25 09:35 Clonidine Hcl 0.1 Mg Tablet PO 0.1 mg DAILY KELIN Administration Docusate Sodium 200 mg 01/19/25 09:00 01/19/25 16:57 Docusate Sodium 100 Mg Capsule PO 200 mg BID KELIN Administration Famotidine 10 mg 01/18/25 21:00 01/19/25 23:23 Famotidine 10 Mg Tablet PO Not Given Q12HR KELIN Fluticasone Propionate 1 spray 01/19/25 09:00 01/19/25 09:43 Fluticasone Propionate 0.05% Na Spr 16 Gm Btl (*Bkc) NASAL 1 spray DAILY KELIN Administration Guaifenesin 1,200 mg 01/19/25 09:00 01/19/25 20:49 Guaifenesin 12 Hr 600 Mg Tabcr PO 1,200 mg Q12HR KELIN Administration Hydralazine HCl 50 mg 01/19/25 09:00 01/19/25 16:58 Hydralazine Hcl 50 Mg Tablet PO 50 mg TID KELIN Administration Ceftriaxone Sodium 1 gm in 50 mls @ 100 mls/hr 01/19/25 16:00 01/19/25 16:58 Rocephin 1 Gm/Ns 50 Ml IVPB 100 mls/hr Q24H KELIN Administration Irbesartan 300 mg 01/19/25 09:00 01/19/25 09:26 Irbesartan 150 Mg Tablet PO 300 mg QAM KELIN Administration Isosorbide Mononitrate 30 mg 01/19/25 09:00 01/19/25 09:34 Isosorbide Mononitrate 30 Mg Tab.Er.24h PO 30 mg DAILY KELIN Administration Lactulose 30 gm 01/19/25 09:00 01/19/25 16:57 Lactulose 20 Gm/30 Ml Udc PO Not Given BID KELIN Lidocaine 2 patch 01/19/25 21:00 01/19/25 20:59 Lidocaine 5% Patch TOPICAL 2 patch HS KELIN Administration Magnesium Citrate 300 ml 01/18/25 22:16 Magnesium Citrate 300 Ml Btl PO DAILY PRN constipation Memantine 5 mg 01/19/25 09:00 01/19/25 16:58 Memantine 5 Mg Tablet PO 5 mg BID KELIN Administration Metoprolol Tartrate 200 mg 01/19/25 09:00 01/19/25 09:31 Metoprolol Tartrate 50 Mg Tab PO 200 mg DAILY KELIN Administration Miscellaneous Information 0 each 01/18/25 00:01 01/19/25 08:17 Famciclovir Nonformulary Can Pt Bring From Home? XX 02/17/25 00:00 Not Given [facility] Non-Formulary Medication 250 mg 01/18/25 22:30 Famciclovir PO 02/17/25 22:29 Q12H [facility] Ondansetron HCl 4 mg 01/19/25 09:00 01/19/25 16:58 Ondansetron Hcl Odt 4 Mg Tablet PO 4 mg TID KELIN Administration Oxycodone/Acetaminophen 1 tablet 01/18/25 22:16 01/20/25 00:49 Oxycodone/Acetaminophen (*Crx) 5-325 Mg Tablet PO 1 tablet Q8H PRN Administration Pain Rated 7-10 Polyethylene Glycol 17 gm 01/18/25 09:00 01/19/25 09:29 Polyethylene Glycol 3350 17 Gm Powd.Pack PO Not Given DAILY [facility] Potassium Chloride 10 meq 01/19/25 09:00 01/19/25 09:31 Potassium Chloride 10 Meq Er Tablet PO 10 meq DAILY KELIN Administration Pregabalin 150 mg 01/19/25 09:00 01/19/25 16:58 Pregabalin (*Crx) 75 Mg Capsule PO 150 mg BID KELIN Administration Primidone 200 mg 01/19/25 09:00 01/19/25 16:58 Primidone 50 Mg Tablet BY MOUTH 200 mg BID KELIN Administration Rivaroxaban 20 mg 01/19/25 17:00 01/19/25 16:58 Rivaroxaban 20 Mg Tablet PO 20 mg DAILY@1700 [facility] Administration Senna/Docusate Sodium 2 tab 01/19/25 09:00 01/19/25 16:58 Senna/Docusate Sodium Tablet PO 2 tab BID KELIN Administration Spironolactone 25 mg 01/19/25 09:00 01/19/25 09:35 Spironolactone 25 Mg Tablet PO 25 mg DAILY KELIN Administration Venlafaxine HCl 37.5 mg 01/19/25 09:00 01/19/25 09:35 Venlafaxine Hcl Xr 37.5 Mg Cap PO 37.5 mg DAILY KELIN Administration Vitamin E 800 unit 01/19/25 09:00 01/19/25 09:34 Vitamin E 400 Unit Capsule PO 800 unit DAILY KELIN Administration Zolpidem Tartrate 5 mg 01/18/25 23:40 01/19/25 20:48 Zolpidem Tartrate (*Crx) 5 Mg Tablet PO 5 mg HS KELIN Administration Radiology Results: ITS Impressions Chest X-Ray 01/18/25 13:59 IMPRESSION: No acute cardiopulmonary pathology. Cardiomegaly. Labs Labs: Laboratory Results - last 24 hr 01/19/25 01/19/25 01/20/25 10:04 22:03 05:34 WBC 7.6 RBC 4.39 Hgb 12.2 Hct 38.3 MCV 87.2 MCH 27.8 MCHC 31.9 L RDW 15.1 H Plt Count 276 MPV 10.5 H Immature Gran % (Auto) 0.4 Neut % (Auto) 55.5 Lymph % (Auto) 24.9 [place] % (Auto) 14.6 H Eos % (Auto) 3.8 Baso % (Auto) 0.8 Lymph # (Auto) 1.90 [place] # (Auto) 1.1 H Eos # (Auto) 0.3 Baso # (Auto) 0.1 Abs Immat Gran (auto) 0.03 Absolute Neuts (auto) 4.2 Absolute Nucleated RBC 0.000 Nucleated RBC % 0.0 Sodium 127 L 132 L Potassium 3.9 Chloride 94 L Carbon Dioxide 28 Anion Gap 10 BUN 11 Creatinine 0.56 L Estim Creat Clear Calc 78 Estimated GFR > 60 Glucose 88 Calcium 9.2 Magnesium 1.8 Total Bilirubin 0.2 AST 25 ALT 15 Alkaline Phosphatase 100 Total Protein 7.5 Albumin 4.3 Ur Random Sodium 50 Quality VTE Prophylaxis VTE prophylaxis: pharmacologic ordered Hospitalist [facility] Advance Care Plan I have confirmed that the patient's Advanced Care Plan is present, code status is documented, or surrogate decision maker is listed in patient medical record.: Yes Medication Reconciliation I have utilized all available resources to obtain, update and review the patients current medications (includes all prescriptions, OTC, herbals, cannabis, and nutritional supplements).: Yes
[2025-01-20] MEDS: hydrALAZINE HCL 50 MG TABLET PO ×3 (09:48→16:43)
[2025-01-20] MEDS: PRIMIDONE 50 MG TABLET 200 MG BY MOUTH ×2 (09:48→20:55)
[2025-01-20] MEDS: VITAMIN E 400 UNIT CAPSULE 800 UNIT PO (09:48)
[2025-01-20] MEDS: polyethylene glycoL 3350 17 GM POWD.PACK PO (09:48)
[2025-01-20] MEDS: busPIRone HCL 10 MG TABLET PO ×3 (09:48→16:43)
[2025-01-20] MEDS: clonazePAM (*CRX) 0.5 MG TABLET PO ×2 (09:48→20:57)
[2025-01-20] MEDS: DOCUSATE SODIUM 100 MG CAPSULE 200 MG PO ×2 (09:50→16:44)
[2025-01-20] MEDS: amLODIPine BESYLATE 10 MG TABLET PO (09:50)
[2025-01-20] MEDS: SENNA/DOCUSATE SODIUM TABLET 2 TAB PO ×2 (09:51→16:44)
[2025-01-20] MEDS: VENLAFAXINE HCL XR 37.5 MG CAP PO (09:51)
[2025-01-20] MEDS: METOPROLOL TARTRATE 50 MG TAB 200 MG PO (09:52)
[2025-01-20] MEDS: ONDANSETRON HCL ODT 4 MG TABLET PO ×3 (09:53→16:43)
[2025-01-20] MEDS: IRBESARTAN 150 MG TABLET 300 MG PO (09:53)
[2025-01-20] MEDS: MEMANTINE 5 MG TABLET PO ×2 (09:53→16:43)
[2025-01-20] MEDS: POTASSIUM CHLORIDE 10 MEQ ER TABLET PO (09:53)
[2025-01-20] MEDS: PREGABALIN (*CRX) 75 MG CAPSULE 150 MG PO ×2 (09:53→16:43)
[2025-01-20] MEDS: guaiFENesin 12 HR 600 MG TABCR 1200 MG PO ×2 (09:53→20:56)
[2025-01-20] MEDS: SPIRONOLACTONE 25 MG TABLET PO (09:53)
[2025-01-20] MEDS: ISOSORBIDE MONONITRATE 30 MG TAB.ER.24H PO (09:54)
[2025-01-20] MEDS: cloNIDine HCL 0.1 MG TABLET PO (09:54)
[2025-01-20] MEDS: FLUTICASONE PROPIONATE 0.05% NA SPR 16 GM BTL (*BKC) 1 SPRAY NASAL (09:54)
--- NOTE | 2025-01-20 10:16 | P.PNNP_ITS ---
Progress Note: A&P Assessment and Plan (1) Hyponatremia: Code(s): E87.1 - Hypo-osmolality and hyponatremia Status: Acute Assessment and Plan: the patient has chronic hyponatremia. This is likely due to multiple issues and occluding pulmonary disease, proton pump inhibitor, poor osmolar intake with more generous fluid intake and in the past narcotics and a new development with the multiple cerebellar strokes.. Her baseline sodium seems to run in the high 120s and the low 130s. Admission sodium was 121. It eric to 127 then stay there. Now it is 132. So the rise in sodium was appropriate. The patient is off the hydrochlorothiazide and off the pantoprazole. Will institute a fluid restriction but otherwise will leave her off the sodium tablets and the furosemide. Patient does not want diuretics anyway because of her frequent urination. I told her she should probably see a urologist as an outpatient to see if they can help her with her frequent urination. Consider inpatient consult on Wednesday if she is still here? (2) AMS (altered mental status): Code(s): R41.82 - Altered mental status, unspecified Status: Acute Assessment and Plan: This seems at baseline right now (3) Obstructive sleep apnea: Code(s): G47.33 - Obstructive sleep apnea (adult) (pediatric) Status: Acute Assessment and Plan: the patient does not tolerate a CPAP mask (4) HTN (hypertension): Qualifiers: Hypertension type: essential hypertension Qualified Code(s): I10 - Essential (primary) hypertension Code(s): I10 - Essential (primary) hypertension Status: Chronic Assessment and Plan: her blood pressure is high. She is on amlodipine, losartan, and p.r.n. hydralazine. The patient is on hydralazine, irbesartan, metoprolol and spironolactone. amlodipine was started yesterday. She has received 2 doses. That is takes a couple of days to kick in. Some will wait till tomorrow and see how the numbers look before adjusting meds. (5) HLD (hyperlipidemia): Qualifiers: Hyperlipidemia type: unspecified Qualified Code(s): E78.5 - Hyperlipidemia, unspecified Code(s): E78.5 - Hyperlipidemia, unspecified Status: Chronic Assessment and Plan: the patient is on atorvastatin (6) CVA (cerebral vascular accident): Code(s): I63.9 - Cerebral infarction, unspecified Status: Acute Assessment and Plan: neurology is seeing the patient Subjective Date/time seen: 01/20/25 10:16 Interval history: Pepper is feeling about the same. She has frequent urination. She has not seen a urologist Review of Systems Cardiovascular: Cardiovascular: Reports no additional cardiovascular complaints Respiratory: Respiratory: Reports no additional respiratory complaints Gastrointestinal: Gastrointestinal: Reports no additional gastrointestinal complaints Genitourinary: Genitourinary: Reports no additional female genitourinary complaints Exam Narrative: WDWN in NAD skin no rash head ncat lungs clear cor reg no rub abd BS+ nontender and soft ext trace bilateral edema. Objective Data Vital Signs Vital Signs: Vital Signs - 24 hr 01/19/25 13:39 01/19/25 20:00 01/19/25 22:00 Temperature 97.3 F L 98.2 F Pulse Rate 66 75 Respiratory Rate 18 18 Blood Pressure 139/45 L 156/68 H Pulse Oximetry 97 97 Oxygen Delivery Room Air 01/20/25 06:00 01/20/25 09:52 Temperature 98.2 F Pulse Rate 80 111 H Respiratory Rate 18 Blood Pressure 181/70 H Pulse Oximetry 99 Oxygen Delivery Intake/Output Intake/Output: Intake & Output 01/17/25 01/18/25 01/19/25 01/20/25 23:59 23:59 23:59 23:59 Intake Total 50 1780 700 Output Total 200 1975 1700 Balance -150 -195 -1000 Meds/Results Medications: Active Medications Generic Name Dose Route Start Last Admin Trade Name Freq PRN Reason Stop Dose Admin Amlodipine Besylate 10 mg 01/19/25 09:00 01/20/25 09:50 Amlodipine Besylate 10 Mg Tablet PO 10 mg DAILY KELIN Administration Artificial Tears 2 drop 01/18/25 22:28 Artificial Tears Ophth Soln 15 Ml Bottle EACH EYE BID PRN dry eye(s) Atorvastatin Calcium 10 mg 01/18/25 23:40 01/19/25 20:47 Atorvastatin 10 Mg Tablet PO 10 mg HS KELIN Administration Bisacodyl 10 mg 01/18/25 22:16 Bisacodyl 5 Mg Tablet Ec PO HS PRN Constipation Buspirone HCl 10 mg 01/19/25 09:00 01/20/25 09:48 Buspirone Hcl 10 Mg Tablet PO 10 mg TID KELIN Administration Clonazepam 0.5 mg 01/18/25 22:20 01/20/25 09:48 Clonazepam (*Crx) 0.5 Mg Tablet PO 0.5 mg Q12HR KELIN Administration Clonidine HCl 0.1 mg 01/19/25 09:00 01/20/25 09:54 Clonidine Hcl 0.1 Mg Tablet PO 0.1 mg DAILY KELIN Administration Docusate Sodium 200 mg 01/19/25 09:00 01/20/25 09:50 Docusate Sodium 100 Mg Capsule PO 200 mg BID KELIN Administration Famotidine 10 mg 01/18/25 21:00 01/20/25 09:54 Famotidine 10 Mg Tablet PO Not Given Q12HR [facility] Fluticasone Propionate 1 spray 01/19/25 09:00 01/20/25 09:54 Fluticasone Propionate 0.05% Na Spr 16 Gm Btl (*Bkc) NASAL 1 spray DAILY KELIN Administration Guaifenesin 1,200 mg 01/19/25 09:00 01/20/25 09:53 Guaifenesin 12 Hr 600 Mg Tabcr PO 1,200 mg Q12HR KELIN Administration Hydralazine HCl 50 mg 01/19/25 09:00 01/20/25 09:48 Hydralazine Hcl 50 Mg Tablet PO 50 mg TID KELIN Administration Ceftriaxone Sodium 1 gm in 50 mls @ 100 mls/hr 01/19/25 16:00 01/19/25 16:58 Rocephin 1 Gm/Ns 50 Ml IVPB 100 mls/hr Q24H KELIN Administration Irbesartan 300 mg 01/19/25 09:00 01/20/25 09:53 Irbesartan 150 Mg Tablet PO 300 mg QAM KELIN Administration Isosorbide Mononitrate 30 mg 01/19/25 09:00 01/20/25 09:54 Isosorbide Mononitrate 30 Mg Tab.Er.24h PO 30 mg DAILY KELIN Administration Lactulose 30 gm 01/19/25 09:00 01/20/25 09:55 Lactulose 20 Gm/30 Ml Udc PO Not Given BID KELIN Lidocaine 2 patch 01/19/25 21:00 01/19/25 20:59 Lidocaine 5% Patch TOPICAL 2 patch HS KELIN Administration Magnesium Citrate 300 ml 01/18/25 22:16 Magnesium Citrate 300 Ml Btl PO DAILY PRN constipation Memantine 5 mg 01/19/25 09:00 01/20/25 09:53 Memantine 5 Mg Tablet PO 5 mg BID KELIN Administration Metoprolol Tartrate 200 mg 01/19/25 09:00 01/20/25 09:52 Metoprolol Tartrate 50 Mg Tab PO 200 mg DAILY KELIN Administration Miscellaneous Information 0 each 01/18/25 00:01 01/19/25 08:17 Famciclovir Nonformulary Can Pt Bring From Home? XX 02/17/25 00:00 Not Given [facility] Non-Formulary Medication 250 mg 01/18/25 22:30 Famciclovir PO 02/17/25 22:29 Q12H KELIN Ondansetron HCl 4 mg 01/19/25 09:00 01/20/25 09:53 Ondansetron Hcl Odt 4 Mg Tablet PO 4 mg TID KELIN Administration Oxycodone/Acetaminophen 1 tablet 01/18/25 22:16 01/20/25 10:11 Oxycodone/Acetaminophen (*Crx) 5-325 Mg Tablet PO 1 tablet Q8H PRN Administration Pain Rated 7-10 Polyethylene Glycol 17 gm 01/18/25 09:00 01/20/25 09:48 Polyethylene Glycol 3350 17 Gm Powd.Pack PO 17 gm DAILY KELIN Administration Potassium Chloride 10 meq 01/19/25 09:00 01/20/25 09:53 Potassium Chloride 10 Meq Er Tablet PO 10 meq DAILY KELIN Administration Pregabalin 150 mg 01/19/25 09:00 01/20/25 09:53 Pregabalin (*Crx) 75 Mg Capsule PO 150 mg BID KELIN Administration Primidone 200 mg 01/19/25 09:00 01/20/25 09:48 Primidone 50 Mg Tablet BY MOUTH 200 mg BID KELIN Administration Rivaroxaban 20 mg 01/19/25 17:00 01/19/25 16:58 Rivaroxaban 20 Mg Tablet PO 20 mg DAILY@1700 KELIN Administration Senna/Docusate Sodium 2 tab 01/19/25 09:00 01/20/25 09:51 Senna/Docusate Sodium Tablet PO 2 tab BID KELIN Administration Spironolactone 25 mg 01/19/25 09:00 01/20/25 09:53 Spironolactone 25 Mg Tablet PO 25 mg DAILY KELIN Administration Venlafaxine HCl 37.5 mg 01/19/25 09:00 01/20/25 09:51 Venlafaxine Hcl Xr 37.5 Mg Cap PO 37.5 mg DAILY KELIN Administration Vitamin E 800 unit 01/19/25 09:00 01/20/25 09:48 Vitamin E 400 Unit Capsule PO 800 unit DAILY KELIN Administration Zolpidem Tartrate 5 mg 01/18/25 23:40 01/19/25 20:48 Zolpidem Tartrate (*Crx) 5 Mg Tablet PO 5 mg HS KELIN Administration Radiology Results: ITS Impressions Chest X-Ray 01/18/25 13:59 IMPRESSION: No acute cardiopulmonary pathology. Cardiomegaly. Labs Labs: Laboratory Results - last 24 hr 01/19/25 01/19/25 01/20/25 10:04 22:03 05:34 WBC 7.6 RBC 4.39 Hgb 12.2 Hct 38.3 MCV 87.2 MCH 27.8 MCHC 31.9 L RDW 15.1 H Plt Count 276 MPV 10.5 H Immature Gran % (Auto) 0.4 Neut % (Auto) 55.5 Lymph % (Auto) 24.9 [place] % (Auto) 14.6 H Eos % (Auto) 3.8 Baso % (Auto) 0.8 Lymph # (Auto) 1.90 [place] # (Auto) 1.1 H Eos # (Auto) 0.3 Baso # (Auto) 0.1 Abs Immat Gran (auto) 0.03 Absolute Neuts (auto) 4.2 Absolute Nucleated RBC 0.000 Nucleated RBC % 0.0 Sodium 127 L 132 L Potassium 3.9 Chloride 94 L Carbon Dioxide 28 Anion Gap 10 BUN 11 Creatinine 0.56 L Estim Creat Clear Calc 78 Estimated GFR > 60 Glucose 88 Calcium 9.2 Magnesium 1.8 Total Bilirubin 0.2 AST 25 ALT 15 Alkaline Phosphatase 100 Total Protein 7.5 Albumin 4.3 Ur Random Sodium 50
[2025-01-20] MEDS: RIVAROXABAN 20 MG TABLET PO (16:43)
[2025-01-20] MEDS: ATORVASTATIN 10 MG TABLET PO (20:56)
[2025-01-20] MEDS: LIDOCAINE 5% PATCH 2 PATCH TOPICAL (20:57)
[2025-01-20] MEDS: ZOLPIDEM TARTRATE (*CRX) 5 MG TABLET PO (20:57)
[2025-01-20] MEDS: FAMOTIDINE 10 MG TABLET PO (20:59)
[2025-01-21] MEDS: oxyCODONE/ACETAMINOPHEN (*CRX) 5-325 MG TABLET 1 TABLET PO (05:22)
[2025-01-21 06:00] VITALS: BP 149/82; PULSE 81; RESP 18; TEMP 36.4; O2SAT 98
[2025-01-21 06:08] LABS: Basophils Absolute Auto 0.1 K/mm3 (0.0-0.1); Basophils Percent Auto 0.8 % (0.2-1.2); Eosinophils Absolute Auto 0.4 K/mm3 (0-0.3); Eosinophils Percent Auto 5.1 % (0-4.4); Hematocrit 36.6 % (37.0-47.0); Hemoglobin 11.3 g/dL (12.0-15.0); Immature Granulocyte Absolute 0.04 K/mm3 (0.00-0.031); Immature Granulocyte Percent A 0.5 % (0-0.5); Lymphocytes Absolute Auto 1.77 K/mm3 (0.9-3.2); Lymphocytes Percent Auto 22.5 % (18.3-44.2); Mean Corpuscular HGB Conc 30.9 g/dl (32-36); Mean Corpuscular Hemoglobin 27.8 pg (26-34); Mean Corpuscular Volume 89.9 fl (80-100); Mean Platelet Volume 10.5 fl (7.4-10.4); Monocytes Absolute Auto 1.1 K/mm3 (0.1-0.6); Monocytes Percent Auto 14.5 % (2.6-8.5); Neutrophils Absolute Auto 4.5 K/mm3 (1.3-6.7); Neutrophils Percent Auto 56.6 % (45.5-73.1); Platelet Count Result 260 k/mm3 (150-375); Red Blood Count 4.07 M/mm3 (4.2-5.4); Red Cell Distribution Width 15.5 % (11.5-14.5); White Blood Count 7.9 K/mm3 (4.5-10.0)
[2025-01-21 06:30] LABS: Alanine Aminotransferase 14 U/L (6-35); Albumin Level 3.7 g/dL (3.5-5.1); Alkaline Phosphatase 93 U/L (38-126); Anion Gap 7 mmol/L (4-12); Aspartate Amino Transferase 21 U/L (14-36); Bilirubin,Total 0.2 mg/dL (0.2-1.3); Blood Urea Nitrogen 15 mg/dL (7-17); Calcium 8.7 mg/dL (8.4-10.2); Carbon Dioxide 27 mmol/L (22-30); Chloride 96 mmol/L (98-107); Estimated CRCL calculation 76 ml/min; Estimated Glomerular Filt Rate > 60; Glucose 90 mg/dL (65-110); Magnesium 1.8 mg/dL (1.6-2.3); Potassium 4.5 mmol/L (3.4-5.0); Sodium 130 mmol/L (137-145); Total Protein 6.4 g/dL (6.3-8.2)
--- NOTE | 2025-01-21 07:13 | P.DS_ITS ---
DS: Admitting Diagnosis Discharge Date 01/21/25 Admitting Diagnosis Polypharmacy, hyponatremia, uti, htn, hld, gerd, anemia, afib hx DS: Discharge Diagnosis Discharge Diagnosis (1) Hyponatremia: Code(s): E87.1 - Hypo-osmolality and hyponatremia Status: Acute Assessment and Plan: * Acute on chronic exacerbation. * Patient's baseline sodium is in the mid to high 120s. * IV fluids of normal saline 75 mL/hour initiated. * Check urine sodium and osmolality as well as serum osmolality to consider potential SIADH. * Trend daily labs * 01/19: Na 127, near pts baseline 01/20 * Appreciate nephrology recs, patient has been on hctz - this is discontinued. Stable/improved Na. 01/21 - Stable sodium, remain of HCTZ. - Appreciate nephrology recs, stop furosemide, protonix. (2) Polypharmacy: Code(s): Z79.899 - Other fci (current) drug therapy Status: Acute Assessment and Plan: * Symptoms being difficult to awaken most likely contributing to the administration clonidine, clonazepam and tizanidine the same time. * Recommend withholding these medications from administration concurrently and timing differently. * Continue to monitor and trend labs and vital signs. * Tizanidine on hold - Continue Clonidine and Clonazepam, monitor and adjust as necessary * 01/19 - pt a&ox3, very pleasant 01/20 * Conversant and alert - cont. to hold tizanidine. Her medication regimen when including this is high risk for her age/comorbidities. 01/21 - On meropenem d/t extensive allergy list. Today day 2. - Stable mentation - cont. off tizanidine on discharge. (3) Urinary tract infection: Code(s): N39.0 - Urinary tract infection, site not specified Status: Acute Assessment and Plan: * Continue Rocephin acute 24 hours * Await results of urine culture 01/20 * Continue to await cx results, not available as of yet. Plan to transition to orals once resulted or plan for outpatient IV if needed. 01/21 - Klebsiella on cx, complete course with augmentin. (4) HTN (hypertension): Qualifiers: Hypertension type: essential hypertension Qualified Code(s): I10 - Essential (primary) hypertension Code(s): I10 - Essential (primary) hypertension Status: Chronic Assessment and Plan: * Blood pressure currently controlled 110/68. * Reorder home medications once they have been verified. * Trend blood pressure and adjust treatment as necessary. * Cardiac diet 01/20 * Norvasc started in the last few days, expect some time to see benefit. Cont. to monitor closely. Can consider outpatient bp log at facility while planning further o/p management at time of discharge. 01/21 - Remain of hctz. - Clonidine to change to patch. - Metoprolol change to toprol XR. (5) HLD (hyperlipidemia): Qualifiers: Hyperlipidemia type: unspecified Qualified Code(s): E78.5 - Hyperlipidemia, unspecified Code(s): E78.5 - Hyperlipidemia, unspecified Status: Chronic Assessment and Plan: * Continue statin therapy once home meds are verified * Heart healthy diet (6) Gastroesophageal reflux disease: Qualifiers: Esophagitis presence: esophagitis presence not specified Qualified Code(s): K21.9 - Gastro-esophageal reflux disease without esophagitis Code(s): K21.9 - Gastro-esophageal reflux disease without esophagitis Status: Chronic Assessment and Plan: * Famotidine ordered daily 01/20 * Does not present current complaint. 01/21 - Pepcid to replace protonix. (7) Anemia: Qualifiers: Anemia type: unspecified type Qualified Code(s): D64.9 - Anemia, uns pecified Code(s): D64.9 - Anemia, unspecified Status: Chronic Assessment and Plan: * Chronic stable with H&H of 11.2 and 33.9. * Trend with daily labs. 01/20 * Stable hgb 12.2 (8) History of atrial fibrillation: Code(s): Z86.79 - Personal history of other diseases of the circulatory system Status: Chronic Assessment and Plan: * History of only. Patient currently in sinus rhythm. * Continue anticoagulation. 01/20 * Rate is stable on exam. Plan Celestina Ewing is a 74 year old female presenting with AMS and UTI - likely underlying polypharmacy and acute illness. Urine culture is showing klebsiella. Will discharge back to facility today to complete abx orally. Recommend off of tizanidine, off of hctz. BP medications changed as noted above. DS: Summary Hospital Course Reason for hospitalization: AMS, UTI Hospital Course: Celestina Ewing presented with acute altered mental status after a recent intiation of tizanidine to her medication regimen. She is additionally on benzodiazepines and opioid medications. The tizanidine was held. A UTI was discovered and treated, with findings of klebsiella - pansensitive nearly. Additionally noted to have hyponatremia, on hctz which is now discontinued. VS and lab values have been stable and grossly within her reviewed baseline normal ranges. On day of discharge she is doing well without any new acute findings. She has been on appropriate abx with ceftriaxone and completing oral course of abx is reasonable. We will continue to hold the tizanidine. She is at higher risk of complication with her medication regimen and this can be reviewed with her pcp as an outpatient. Status at Discharge Overall status at discharge: patient is back to baseline (s/p remote left lower ext. amputation. ) Time Spent with Patient Time attestation: Total time spent providing and/or coordinating discharge services: Time spent: Greater than 30 minutes Specific discharge activities: Counseling, discussion on medication safety, explanation of bp medications that are new and possible side effects. Exam Narrative: GENERAL APPEARANCE: Appears to be in no acute distress. HEAD: normocephalic atraumatic ENT: Hearing grossly intact, no nasal discharge NECK: Neck supple, trachea midline. CARDIAC: Normal S1/S2. Rhythm is regular. No murmurs, rubs, or gallops. No cyanosis or pallor. Extremities are warm and well perfused. LUNGS: Clear to auscultation without rales, rhonchi, wheezing or diminished breath sounds. Respirations even and unlabored. ABDOMEN: BS positive x 4 quadrants. Soft, nondistended, nontender. No guarding or rebound. MSK: No joint tenderness/swelling, fair strength upper extremities. PERIPHERAL VASCULAR: Peripheral pulses palpable RLE. NEURO: Follows commands. No focal deficits. SKIN: [place] without lesions or eruptions. PSYCH: Stable, no paranoia or delusional thinking. DS: Data Data Completed and Pending Labs on day of discharge: Labs from last 24 hours 01/21/25 05:29 WBC 7.9 RBC 4.07 L Hgb 11.3 L Hct 36.6 L MCV 89.9 MCH 27.8 MCHC 30.9 L RDW 15.5 H Plt Count 260 MPV 10.5 H Immature Gran % (Auto) 0.5 Neut % (Auto) 56.6 Lymph % (Auto) 22.5 [place] % (Auto) 14.5 H Eos % (Auto) 5.1 H Baso % (Auto) 0.8 Lymph # (Auto) 1.77 [place] # (Auto) 1.1 H Eos # (Auto) 0.4 H Baso # (Auto) 0.1 Abs Immat Gran (auto) 0.04 H Absolute Neuts (auto) 4.5 Absolute Nucleated RBC 0.000 Nucleated RBC % 0.0 Sodium 130 L Potassium 4.5 Chloride 96 L Carbon Dioxide 27 Anion Gap 7 BUN 15 Creatinine 0.57 L Estim Creat Clear Calc 76 Estimated GFR > 60 Glucose 90 Calcium 8.7 Magnesium 1.8 Total Bilirubin 0.2 AST 21 ALT 14 Alkaline Phosphatase 93 Total Protein 6.4 Albumin 3.7 Discharge Plan Discharge Attending physician on discharge: Bhavik Minaya Consulting providers: Daniel Westfall; Chacho Ventura Discharging Clinician: Obi Betancourt Patient Disposition: SNF Activity: no preference Diet: as tolerated Discharge Instructions: - Follow up with your primary care provider in the next 1-2 weeks. - Take all medications as prescribed. Remain off of HCTZ in the future. - Discontinue tizanidine and review with PCP for options on antispasmodic dosing/medications. - If anything other than steady improvement please contact your PCP or seek evaluation urgently. - Please follow all discharge directions as written, call for any questions or need for clarification. - Thank you for choosing [facility] for your healthcare needs! Patient Instructions: Rivaroxaban (By mouth) Patient Language: Latvian Stand Alone Forms: General Discharge Information Discharge Medications: New amoxicillin-pot clavulanate 875-125 mg tablet 1 tablet PO Q12H Qty: 10 0RF Rx Instructions: First dose 01/21/25 HS. famotidine [Heartburn Relief (famotidine)] 10 mg Tablet 10 mg PO Q12HR Qty: 30 0RF clonidine 0.1 mg/24 hr Patch Weekly 1 patch transdermal WEEKLY Qty: 4 0RF metoprolol succinate [Toprol XL] 100 mg Tablet Extended Release 24 Hr 200 mg PO QAM Qty: 60 0RF Continued docusate sodium 100 mg Tablet 200 mg PO BID isosorbide mononitrate 30 mg tablet extended release 24 hr 30 mg PO DAILY lidocaine [Lidoderm] 5 % adhesive patch,medicated 2 patch topical HS Patient Comments: left shoulder Rx Instructions: leave on most painful area for up to 12 hrs magnesium hydroxide [Gentle Laxative (mag hydrox)] 400 mg/5 mL suspension 30 ml PO DAILY PRN (Reason: constipation) Xarelto 20 mg Tablet 20 mg PO DAILY@1700 Qty: 60 0RF oxycodone-acetaminophen 5-325 mg Tablet 1 tablet PO Q8H PRN (Reason: Pain Rated 7-10) Qty: 10 0RF irbesartan 150 mg Tablet 300 mg PO QAM Qty: 30 0RF primidone 50 mg tablet See Rx Instructions .ROUTE .COMPLEX Rx Instructions: 200 MG PO BID; spironolactone 25 mg tablet 25 mg PO DAILY venlafaxine 37.5 mg capsule,extended release 24hr 37.5 mg PO DAILY zolpidem 5 mg tablet 5 mg PO HS buspirone 10 mg tablet 10 mg PO TID clonazepam 0.5 mg tablet 0.5 mg PO Q12H magnesium citrate Solution 300 ml PO DAILY PRN (Reason: constipation) lactulose [Enulose] 10 gram/15 mL solution 30 g PO BID famciclovir 250 mg tablet 250 mg PO Q12H atorvastatin [Lipitor] 10 mg tablet 10 mg PO HS sennosides-docusate sodium [Senna Plus] 8.6-50 mg tablet 2 tab-cap PO BID Artificial Tears(pvalch-povid) 0.5-0.6 % drops 2 drp EACH EYE BID PRN (Reason: dry eye(s)) hydralazine 10 mg Tablet 50 mg PO TID fluticasone propionate 50 mcg/actuation [place],Suspension 1 spray INTRANASAL DAILY vitamin E 400 unit Capsule 800 unit PO DAILY ondansetron HCl 4 mg tablet 4 mg PO TID amlodipine 10 mg tablet 10 mg PO DAILY bisacodyl [Dulcolax (bisacodyl)] 5 mg Tablet,Delayed Release (Dr/Ec) 10 mg PO HS PRN (Reason: Constipation) polyethylene glycol 3350 [Miralax] 17 gram/dose Powder 17 g PO DAILY PRN (Reason: Constipation) memantine 5 mg tablet 5 mg PO BID guaifenesin [Mucinex] 1,200 mg Tablet Extended Release 12hr 1,200 mg PO BID pregabalin [Lyrica] 150 mg Capsule 150 mg PO BID Qty: 14 0RF Discontinued sodium chloride 1,000 mg tablet,soluble 1,000 mg PO TID Qty: 90 0RF potassium chloride 10 mEq tablet extended release 10 meq PO DAILY tizanidine 2 mg tablet 2 mg PO TID hydrochlorothiazide 25 mg tablet 25 mg PO DAILY pantoprazole [Protonix] 40 mg tablet,delayed release (DR/EC) 40 mg PO QAM metoprolol tartrate 100 mg Tablet 200 mg PO DAILY clonidine HCl 0.1 mg tablet 0.1 mg PO DAILY Other Ambulatory Orders: Complete Blood Count no Diff (Routine) Timeframe: 3 Days Facility: [facility] - Location: [facility] Infusion Ordered By: Obi Betancourt Comprehensive Metabolic Panel (Routine) Timeframe: 3 Days Location: Determined by Patient Ordered By: Obi Betancourt Date of admission: 01/19/25 11:15 Primary Care Provider: PHYSICIAN NOT ON STAFF,NONSTAFF Admitting Provider: Jose Groves Attending physician on admission: Jose Groves Condition: Stable Quality VTE Prophylaxis VTE prophylaxis: mechanical ordered and pharmacologic ordered
--- NOTE | 2025-01-21 08:41 | P.PNNP_ITS ---
Progress Note: A&P Assessment and Plan (1) Hyponatremia: Code(s): E87.1 - Hypo-osmolality and hyponatremia Status: Acute Assessment and Plan: the patient has chronic hyponatremia. This is likely due to multiple issues and occluding pulmonary disease, proton pump inhibitor, poor osmolar intake with more generous fluid intake and in the past narcotics and a new development with the multiple cerebellar strokes.. Her baseline sodium seems to run in the high 120s and the low 130s. Admission sodium was 121. It eric to 127 then stay there. I the sodium is stable at around 1:30 a.m.. The patient is off the hydrochlorothiazide and off the pantoprazole. Will institute a fluid restriction but otherwise will leave her off the sodium tablets and the furosemide. The patient is on very many medications. To help the polypharmacy will change clonidine to a patch. She might not need the potassium since she is not on diuretics anymore. (2) AMS (altered mental status): Code(s): R41.82 - Altered mental status, unspecified Status: Acute Assessment and Plan: This seems at baseline right now (3) Obstructive sleep apnea: Code(s): G47.33 - Obstructive sleep apnea (adult) (pediatric) Status: Acute Assessment and Plan: the patient does not tolerate a CPAP mask (4) HTN (hypertension): Qualifiers: Hypertension type: essential hypertension Qualified Code(s): I10 - Ess ential (primary) hypertension Code(s): I10 - Essential (primary) hypertension Status: Chronic Assessment and Plan: her blood pressure is Better but still high. She is on amlodipine, losartan, and p.r.n. hydralazine. The patient is on hydralazine, irbesartan, metoprolol and spironolactone. amlodipine was started yesterday. will change clonidine to the patch will be in effect a higher dose. Will change metoprolol from tartrate to succinate since it is only once a day (5) HLD (hyperlipidemia): Qualifiers: Hyperlipidemia type: unspecified Qualified Code(s): E78.5 - Hyperlipidemia, unspecified Code(s): E78.5 - Hyperlipidemia, unspecified Status: Chronic Assessment and Plan: the patient is on atorvastatin (6) CVA (cerebral vascular accident): Code(s): I63.9 - Cerebral infarction, unspecified Status: Acute Assessment and Plan: neurology is seeing the patient Subjective Date/time seen: 01/21/25 08:41 Interval history: zeny is feeling okay today. She is feeling a bit thirsty she is on so many pills that when she drinks water to swallow the pills she hardly has any thing left Exam Narrative: WDWN in NAD skin no rash or subcu nodule head ncat lungs clear cor reg no rub or gallop abd BS+ nontender and soft ext trace bilateral edema. Objective Data Vital Signs Vital Signs: Vital Signs - 24 hr 01/20/25 09:52 01/20/25 14:00 01/20/25 20:00 Temperature 98.5 F Pulse Rate 111 H 62 Respiratory Rate 16 Blood Pressure 128/48 L Pulse Oximetry 93 99 Oxygen Delivery Nasal Cannula Oxygen Flow Rate 1 Fraction of Inspired Oxygen 24 01/20/25 20:02 01/20/25 20:06 01/20/25 22:23 Temperature 97.3 F L Pulse Rate 70 70 74 Respiratory Rate 20 20 18 Blood Pressure 160/62 H Pulse Oximetry 91 91 99 Oxygen Delivery Room Air Nasal Cannula Oxygen Flow Rate 1 Fraction of Inspired Oxygen 21 01/21/25 06:00 Temperature 97.5 F L Pulse Rate 81 Respiratory Rate 18 Blood Pressure 149/82 H Pulse Oximetry 98 Oxygen Delivery Oxygen Flow Rate Fraction of Inspired Oxygen Intake/Output Intake/Output: Intake & Output 01/18/25 01/19/25 01/20/25 01/21/25 23:59 23:59 23:59 23:59 Intake Total 50 1830 1470 390 Output Total 200 1975 2400 550 Balance -150 -145 -930 -160 Meds/Results Medications: Active Medications Generic Name Dose Route Start Last Admin Trade Name Freq PRN Reason Stop Dose Admin Amlodipine Besylate 10 mg 01/19/25 09:00 01/20/25 09:50 Amlodipine Besylate 10 Mg Tablet PO 10 mg DAILY KELIN Administration Artificial Tears 2 drop 01/18/25 22:28 Artificial Tears Ophth Soln 15 Ml Bottle EACH EYE BID PRN dry eye(s) Atorvastatin Calcium 10 mg 01/18/25 23:40 01/20/25 20:56 Atorvastatin 10 Mg Tablet PO 10 mg HS KELIN Administration Bisacodyl 10 mg 01/18/25 22:16 Bisacodyl 5 Mg Tablet Ec PO HS PRN Constipation Buspirone HCl 10 mg 01/19/25 09:00 01/20/25 16:43 Buspirone Hcl 10 Mg Tablet PO 10 mg TID KELIN Administration Clonazepam 0.5 mg 01/18/25 22:20 01/20/25 20:57 Clonazepam (*Crx) 0.5 Mg Tablet PO 0.5 mg Q12HR KELIN Administration Clonidine HCl 0.1 mg 01/19/25 09:00 01/20/25 09:54 Clonidine Hcl 0.1 Mg Tablet PO 0.1 mg DAILY KELIN Administration Docusate Sodium 200 mg 01/19/25 09:00 01/20/25 16:44 Docusate Sodium 100 Mg Capsule PO 200 mg BID KELIN Administration Famotidine 10 mg 01/18/25 21:00 01/20/25 20:59 Famotidine 10 Mg Tablet PO 10 mg Q12HR KELIN Administration Fluticasone Propionate 1 spray 01/19/25 09:00 01/20/25 09:54 Fluticasone Propionate 0.05% Na Spr 16 Gm Btl (*Bkc) NASAL 1 spray DAILY KELIN Administration Guaifenesin 1,200 mg 01/19/25 09:00 01/20/25 20:56 Guaifenesin 12 Hr 600 Mg Tabcr PO 1,200 mg Q12HR KELIN Administration Hydralazine HCl 50 mg 01/19/25 09:00 01/20/25 16:43 Hydralazine Hcl 50 Mg Tablet PO 50 mg TID KELIN Administration Ceftriaxone Sodium 1 gm in 50 mls @ 100 mls/hr 01/19/25 16:00 01/20/25 17:15 Rocephin 1 Gm/Ns 50 Ml IVPB Infused Q24H KELIN Infusion Irbesartan 300 mg 01/19/25 09:00 01/20/25 09:53 Irbesartan 150 Mg Tablet PO 300 mg QAM KELIN Administration Isosorbide Mononitrate 30 mg 01/19/25 09:00 01/20/25 09:54 Isosorbide Mononitrate 30 Mg Tab.Er.24h PO 30 mg DAILY KELIN Administration Lactulose 30 gm 01/19/25 09:00 01/20/25 16:55 Lactulose 20 Gm/30 Ml Udc PO Not Given BID KELIN Lidocaine 2 patch 01/19/25 21:00 01/20/25 20:57 Lidocaine 5% Patch TOPICAL 2 patch HS KELIN Administration Magnesium Citrate 300 ml 01/18/25 22:16 Magnesium Citrate 300 Ml Btl PO DAILY PRN constipation Memantine 5 mg 01/19/25 09:00 01/20/25 16:43 Memantine 5 Mg Tablet PO 5 mg BID KELIN Administration Metoprolol Tartrate 200 mg 01/19/25 09:00 01/20/25 09:52 Metoprolol Tartrate 50 Mg Tab PO 200 mg DAILY KELIN Administration Ondansetron HCl 4 mg 01/19/25 09:00 01/20/25 16:43 Ondansetron Hcl Odt 4 Mg Tablet PO 4 mg TID KELIN Administration Oxycodone/Acetaminophen 1 tablet 01/20/25 16:00 01/21/25 05:22 Oxycodone/Acetaminophen (*Crx) 5-325 Mg Tablet PO 1 tablet Q8HR KELIN Administration Polyethylene Glycol 17 gm 01/18/25 09:00 01/20/25 09:48 Polyethylene Glycol 3350 17 Gm Powd.Pack PO 17 gm DAILY KELIN Administration Potassium Chloride 10 meq 01/19/25 09:00 01/20/25 09:53 Potassium Chloride 10 Meq Er Tablet PO 10 meq DAILY KELIN Administration Pregabalin 150 mg 01/19/25 09:00 01/20/25 16:43 Pregabalin (*Crx) 75 Mg Capsule PO 150 mg BID KELIN Administration Primidone 200 mg 01/19/25 09:00 01/20/25 20:55 Primidone 50 Mg Tablet BY MOUTH 200 mg BID KELIN Administration Rivaroxaban 20 mg 01/19/25 17:00 01/20/25 16:43 Rivaroxaban 20 Mg Tablet PO 20 mg DAILY@1700 KELIN Administration Senna/Docusate Sodium 2 tab 01/19/25 09:00 01/20/25 16:44 Senna/Docusate Sodium Tablet PO 2 tab BID KELIN Administration Spironolactone 25 mg 01/19/25 09:00 01/20/25 09:53 Spironolactone 25 Mg Tablet PO 25 mg DAILY KELIN Administration Venlafaxine HCl 37.5 mg 01/19/25 09:00 01/20/25 09:51 Venlafaxine Hcl Xr 37.5 Mg Cap PO 37.5 mg DAILY KELIN Administration Vitamin E 800 unit 01/19/25 09:00 01/20/25 09:48 Vitamin E 400 Unit Capsule PO 800 unit DAILY KELIN Administration Zolpidem Tartrate 5 mg 01/18/25 23:40 01/20/25 20:57 Zolpidem Tartrate (*Crx) 5 Mg Tablet PO 5 mg HS KELIN Administration Radiology Results: ITS Impressions Chest X-Ray 01/18/25 13:59 IMPRESSION: No acute cardiopulmonary pathology. Cardiomegaly. Labs Labs: Laboratory Results - last 24 hr 01/21/25 05:29 WBC 7.9 RBC 4.07 L Hgb 11.3 L Hct 36.6 L MCV 89.9 MCH 27.8 MCHC 30.9 L RDW 15.5 H Plt Count 260 MPV 10.5 H Immature Gran % (Auto) 0.5 Neut % (Auto) 56.6 Lymph % (Auto) 22.5 Jones % (Auto) 14.5 H Eos % (Auto) 5.1 H Baso % (Auto) 0.8 Lymph # (Auto) 1.77 Jones # (Auto) 1.1 H Eos # (Auto) 0.4 H Baso # (Auto) 0.1 Abs Immat Gran (auto) 0.04 H Absolute Neuts (auto) 4.5 Absolute Nucleated RBC 0.000 Nucleated RBC % 0.0 Sodium 130 L Potassium 4.5 Chloride 96 L Carbon Dioxide 27 Anion Gap 7 BUN 15 Creatinine 0.57 L Estim Creat Clear Calc 76 Estimated GFR > 60 Glucose 90 Calcium 8.7 Magnesium 1.8 Total Bilirubin 0.2 AST 21 ALT 14 Alkaline Phosphatase 93 Total Protein 6.4 Albumin 3.7
[2025-01-21 09:06] VITALS: PULSE 72; RESP 20; O2SAT 94
[2025-01-21] MEDS: DOCUSATE SODIUM 100 MG CAPSULE 200 MG PO (10:29)
[2025-01-21] MEDS: PREGABALIN (*CRX) 75 MG CAPSULE 150 MG PO (10:30)
[2025-01-21] MEDS: clonazePAM (*CRX) 0.5 MG TABLET PO (10:30)
[2025-01-21] MEDS: amLODIPine BESYLATE 10 MG TABLET PO (10:30)
[2025-01-21] MEDS: MEMANTINE 5 MG TABLET PO (10:30)
[2025-01-21] MEDS: SPIRONOLACTONE 25 MG TABLET PO (10:30)
[2025-01-21] MEDS: FAMOTIDINE 10 MG TABLET PO (10:30)
[2025-01-21] MEDS: IRBESARTAN 150 MG TABLET 300 MG PO (10:30)
[2025-01-21] MEDS: SENNA/DOCUSATE SODIUM TABLET 2 TAB PO (10:30)
[2025-01-21] MEDS: ONDANSETRON HCL ODT 4 MG TABLET PO (10:30)
[2025-01-21] MEDS: hydrALAZINE HCL 50 MG TABLET PO (10:31)
[2025-01-21] MEDS: ISOSORBIDE MONONITRATE 30 MG TAB.ER.24H PO (10:31)
[2025-01-21] MEDS: guaiFENesin 12 HR 600 MG TABCR 1200 MG PO (10:31)
[2025-01-21] MEDS: VENLAFAXINE HCL XR 37.5 MG CAP PO (10:31)
[2025-01-21] MEDS: busPIRone HCL 10 MG TABLET PO (10:31)
[2025-01-21] MEDS: cloNIDine 0.1 MG/24 HR PATCH 1 PATCH TRANSDERM (10:32)
[2025-01-21] MEDS: FLUTICASONE PROPIONATE 0.05% NA SPR 16 GM BTL (*BKC) 1 SPRAY NASAL (10:32)
[2025-01-21] MEDS: PRIMIDONE 50 MG TABLET 200 MG BY MOUTH (10:37)
[2025-01-21] MEDS: VITAMIN E 400 UNIT CAPSULE 800 UNIT PO (10:41)
[2025-01-21 10:42] VITALS: PULSE 108
[2025-01-21] MEDS: METOPROLOL SUCCINATE EXT REL 100 MG TABCR 200 MG PO (10:42)
[2025-01-21 10:56] VITALS: O2SAT 97
--- NOTE | 2025-01-21 11:01 | PC.NURSE ---
material handler 1st shift RN charted on 0900 primidone, but timed it for 2054. This RN gave Primidone at 0900 but had to chart on future dose of 1700 due to charting from previous shift.
[2025-01-22 12:04] LABS: Osmolality, Urine. 194 mOsm/kg (50-1200)
== END 2025-01-21 13:25 | DRG 641 ==
LOC: ANHED 15:44 → ANH3MED 17:51
PROVIDERS: Internal Medicine Nephrology; Nurse Practitioner Adult Health; Student in an Organized Health Care Education/Training Program; Admitting Provider Internal Medicine; Emergency Provider Emergency Medicine; Visit Provider Nurse Practitioner Family
DX: E87.1 Hypo-osmolality and hyponatremia (principal); N39.0 Urinary tract infection, site not specified; J96.11 Chronic respiratory failure with hypoxia; R41.82 Altered mental status, unspecified; B96.1 Klebsiella pneumoniae [K. pneumoniae] as the cause of diseases classified elsewhere; T46.5X5A Adverse effect of other antihypertensive drugs, initial encounter; T42.4X5A Adverse effect of benzodiazepines, initial encounter; T42.8X5A Adverse effect of antiparkinsonism drugs and other central muscle-tone depressants, initial encounter; I69.391 Dysphagia following cerebral infarction; I10 Essential (primary) hypertension; E78.5 Hyperlipidemia, unspecified; K21.9 Gastro-esophageal reflux disease without esophagitis; D64.9 Anemia, unspecified; G47.33 Obstructive sleep apnea (adult) (pediatric); F41.9 Anxiety disorder, unspecified; G40.909 Epilepsy, unspecified, not intractable, without status epilepticus; R62.7 Adult failure to thrive; F31.9 Bipolar disorder, unspecified; Z79.899 Other long term (current) drug therapy; Z86.79 Personal history of other diseases of the circulatory system; Z89.512 Acquired absence of left leg below knee; Z99.81 Dependence on supplemental oxygen; Z79.01 Long term (current) use of anticoagulants; Z96.611 Presence of right artificial shoulder joint; Z90.49 Acquired absence of other specified parts of digestive tract; Z96.652 Presence of left artificial knee joint
CPT/HCPCS: 36415; 71045; 80053; 81001; 83735; 83930; 83935; 84295; 84300; 84484; 85025; 85610; 85730; 87086; 87186; 93005; 96361; 96365; 99285; A9270; G0378; J0696; J7030

== ENCOUNTER 2025-02-08 14:27 | Inpatient (IN) | payer MEDICARE, MEDICAID, SELFPAY ==
[2025-02-08] VITALS (16 sets, daily range): BP systolic 91–160; BP diastolic 42–80; PULSE 40–64; RESP 8–14; TEMP 34.7–36.4; O2SAT 95–100; BMI 38.9
--- NOTE | ~2025-02-08 | CT_ITS ---
EXAMINATION: CT brain wo con DATE: 02/08/2025 15:16 INDICATION: ams . TECHNIQUE: Computed tomography (CT) of the head was performed without intravenous contrast. The mA wa s adjusted according to patient size. Iterative reconstruction technique was employed. The dose-lengt h product was 681.00 mGy-cm. COMPARISON: 09/15/2024; MR brain 09/17/2024; MR pituitary 09/19/2024. FINDINGS: No acute intracranial hemorrhage or extra-axial fluid collection. No hydrocephalus, mass, or herniation. No acute ischemic infarct. Unremarkable dural venous sinus attenuation. No acute osseous abnormality. The aerated spaces are clear. Moderate atrophy and mild chronic white matter change. Atherosclerotic intracranial calcification. Ol d bilateral cerebellar infarcts. 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 IMPRESSION: No acute intracranial process. Reviewed, dictated and finalized at location K.
--- NOTE | ~2025-02-08 | XR_ITS ---
XR chest 1V Ordering provider: Elver Jamil MD History: 74 years Female with . weakness . Comparison: January 18, 2025 FINDINGS: MEDIASTINUM: The cardiac silhouette is moderately enlarged. Congestive jai. LUNGS: No effusions or pneumothorax. Opacification in the left lung base is seen. Prominent markings in the right lung base. OTHER: No free air under the diaphragm. IMPRESSION: Left basilar atelectasis versus pneumonia Reviewed, dictated and finalized at location A.
--- NOTE | 2025-02-08 14:29 | ECG_ITS ---
Test Date: 2025-02-08 14:32:19 Measurements Intervals [place] Rate: 50 P: 33 IN: 268 QRS: -10 QRSD: 108 T: 20 QT: 510 QTc: 466 Interpretive Statements SINUS BRADYCARDIA WITH FIRST DEGREE AV BLOCK POSSIBLE RIGHT VENTRICULAR CONDUCTION DELAY [RSR (QR) IN V1/V2] VOLTAGE CRITERIA FOR LVH [MEETS CRITERIA IN ONE OF: R(aVL), S(V1), R(V5), R(V5/V6)+S(V1)] WITH ST-T CHANGES POSSIBLE SEPTAL MYOCARDIAL INFARCTION , OF INDETERMINATE AGE [30 ms Q WAVE IN V1/V2] Compared to ECG 01/18/2025 16:53:19 First degree AV block now present Sinus rhythm no longer present Myocardial infarct finding still present Electronically Signed On 02-08-2025 14:52:13 CDT by Daniel Raines M.D.
[2025-02-08 14:59] LABS: Alveolar/Arterial O2 Gradient 5.4 mmHg; Fractional Inspired Oxygen 28 %; HCO3 ABG 27.4 mEq/l (22.0-26.0); Liters per Minute 2.0 LPM; Modified Allen's Test Pass; Oxygen Content ABG 13.5 %vol (16.0-22.0); Oxygen Saturation ABG 98.3 % (95.0-100.0); PCO2 ABG 54.1 mmHg (35.0-45.0); PO2 ABG 130.4 mmHg (80.0-100.0); PO2 FiO2 Ratio Arterial Blood 4.66 %; Site Drawn RIGHT RADIAL
[2025-02-08 15:00] LABS: Hematocrit 26.3 % (37.0-47.0); Hemoglobin 8.8 g/dL (12.0-15.0); Immature Granulocyte Percent A 0.4 % (0-0.5); Lymphocytes Absolute Auto 1.05 K/mm3 (0.9-3.2); Mean Corpuscular HGB Conc 33.5 g/dl (32-36); Mean Corpuscular Hemoglobin 27.8 pg (26-34); Mean Corpuscular Volume 83.2 fl (80-100); Nucleated Red Blood Cells Absolute Auto 0.000 K/mm3 (0.0-0.012); Nucleated Red Blood Cells Perc 0.0 % (0.0-0.2); Platelet Count Result 152 k/mm3 (150-375); Red Blood Count 3.16 M/mm3 (4.2-5.4); White Blood Count 4.8 K/mm3 (4.5-10.0)
--- OUTSIDE RECORDS SUMMARY | 2025-02-08 15:03 | XMS_ITS | Clinical Summary ---
Author Organization [facility] Healthcare Address [address] [place] [address] Care Team Providers Care Warhead Maintenance Specialist Name Role Phone Jose Manuel Gruber MD Unavailable [phone] Hernando Velasquez MD Primary Care Provider [phone] Allergies Active Allergy Reactions Criticality Noted Date Comments Barbiturates Unknown,Other (See comments) Medium 09/13/2006 Diazepam Unknown,Other (See comments) Low 09/13/2006 Fish Containing Products Anaphylaxis High 07/05/2019 Iodine Unknown,Other (See comments) Low 09/13/2006 Latex Unknown 06/28/2019 Menthol Hives,Itching,Rash Medium 07/08/2022 [place]-3 Fatty Acids Unknown,Other (See comments) Low 12/12/2010 [...] 04/15/2022 Assessment & Plan (07/08/2022 2:39 PM PARTS DRIVER): I did recommend that the patient decrease [...] 01/07/2022 Assessment & Plan (07/08/2022 2:39 PM PARTS DRIVER): The patient does have some cough with [...] 01/07/2022 Assessment & Plan (07/08/2022 2:39 PM PARTS DRIVER): She was intolerant of CPAP therapy and [...] and ureter, unspecified 02/27 Status post above-knee amputation of left lower extremity 08/02/2020 COVID-19 07/05/2020 Assessment & Plan (07/11/2020 6:58 AM PARTS DRIVER): - Patient tested positive for COVID-19 on 06/21/20 at her skilled nursing ([facility] in [place], [place]). - She reports her only symptom [...] SNF. Assessment & Plan (07/07/2020 6:25 PM PARTS DRIVER): - Pt states she was actually tested [...] protocol Assessment & Plan (07/06/2020 11:59 AM PARTS DRIVER): - recommend getting records from SNF to establish exact date of first (+) COVID test. - pt likely has completed days of isolation. Assessment & Plan (07/06/2020 7:34 AM PARTS DRIVER): - Per report, pt was tested for [...] protocol Assessment & Plan (07/05/2020 5:40 PM PARTS DRIVER): - Per report, pt was tested for [...] 07/05/2020 Assessment & Plan (07/11/2020 6:57 AM PARTS DRIVER): History of open periprosthetic tibia/fibula fracture s/p [...] left lower extremity. - PM&R consulted. - Editorial Intern placed stump inventory assistant / ampushield. Awaiting delivery of limb protector. - Patient not interested in prosthesis at this time. - PT/OT consults. - Plan for patient to return to her prior SNF when medically stable with ongoing PT/OT. - ID and Ortho following. Assessment & Plan (07/07/2020 6:27 PM PARTS DRIVER): - History of open periprosthetic tibia/fibula fracture [...] extremity Assessment & Plan (07/06/2020 3:07 PM PARTS DRIVER): - Cellulitis vs subcutaneous infection vs OM [...] recs. Assessment & Plan (07/05/2020 6:03 PM PARTS DRIVER): - Cellulitis vs subcutaneous infection vs OM [...] (07/08/2020): Added automatically from request for surgery [id number] Abnormal x-ray of extremity 07/20/2019 Acute exacerbation of chronic low back pain 06/26 Biliary colic 07/20/2019 Chronic lumbosacral pain 07/20/2019 Chronic respiratory failure 07/20/2019 Assessment & Plan (07/08/2020 4:27 PM PARTS DRIVER): - Per pt 2/2 COPD. No sings of acute exacerbation. - Continue home flonase - Continue home albuterol prn - On home is on 4L O2 at baseline Assessment & Plan (07/07/2020 6:26 PM PARTS DRIVER): - Per pt 2/2 COPD. No sings of acute exacerbation. - Continue home flonase - Continue home albuterol prn - On baseline 4L O2 Assessment & Plan (07/06/2020 7:33 AM PARTS DRIVER): - Per pt 2/2 COPD. No sings of acute exacerbation. - Continue home flonase - Continue home albuterol prn - On baseline 4L O2 Assessment & Plan (07/05/2020 6:00 PM PARTS DRIVER): - Per pt 2/2 COPD. No sings of acute exacerbation. - Continue home flonase - Continue home albuterol prn - On baseline 4L O2 Closed displaced bimalleolar fracture of right l ower leg 07/20/2019 Assessment & Plan (07/05/2020 6:01 PM PARTS DRIVER): - As elsewhere Deep venous insufficiency 07/20/2019 [...] with anxious distress 019 Intractable seizure disorder 06/28/2019 Moderate essential hypertension 06/28/2019 Assessment & Plan (07/08/2020 4:26 PM PARTS DRIVER): - Follows with cardiology. - Continue home amlodipine, metoprolol, lasix, spironolactone. - Switched olmesartan to losartan as not on formulary. Assessment & Plan (07/07/2020 6:26 PM PARTS DRIVER): - Follows with cardiology - Continue home amlodipine, metoprolol, lasix, spironolactone - Switched olmesartan to losartan as not on formulary Assessment & Plan (07/06/2020 3:04 PM PARTS DRIVER): - Follows with cardiology - Continue home amlodipine, metoprolol, lasix, spironolactone - Switched olmesartan to losartan as not on formulary Assessment & Plan (07/05/2020 5:58 PM PARTS DRIVER): - Follows with cardiology - Continue home amlodipine, metoprolol, lasix, spironolactone - Switch olmesartan to losartan as not on formulary Syncope due to sick sinus syndrome 06/28/2019 Open displaced comminuted fr acture of shaft of left tibia, type IIIA, IIIB, or IIIC 06/28/2019 Overview (06/28/2019): Added automatically from request for surgery [id number] Assessment & Plan (07/08/2020 4:27 PM PARTS DRIVER): - See above. 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 After hours, the ID fellow chamber of [employer] division manager can be reached at [phone]. Assessment & Plan (07/05/2020 5:59 PM PARTS DRIVER): - L tibia and R ankle fractures s/p BRENNA in 06/2020 - Complicated by poor healing and multiple infections of L anterior leg wound - Pt of Dr. Shoemaker Hyponatremia 11/23/2017 Assessment & Plan (07/11/2020 6:59 AM PARTS DRIVER): - Pt with history of hypoNa (per report, baseline mid 120- low 130s). - Na 126 on admission. No AMS. - TSH wnl. Cortisol 17. - Na stable. Assessment & Plan (07/07/2020 6:26 PM PARTS DRIVER): - Pt with history of hypoNa (per report, baseline mid 120- low 130s). - Na 126 on admission. No AMS. - TSH wnl. Cortisol 17. - Diuretics were held and Na improved to 132. Restart when able. Assessment & Plan (07/06/2020 7:31 AM PARTS DRIVER): - Pt with history of hypoNa (per report, baseline mid 120- low 130s). - Na 126 on admission. No AMS. - TSH wnl. Cortisol 17. - NS IVF - CTM Na Traumatic rhabdomyolysis 11/23/2017 Syndrome of inappropriate antidiuretic hormone 1 08/03/2014 Idiopathic peripheral neuropathy 12/11/2010 Migraine 09/14/2006 Generalized osteoarthritis 09/27/2000 Resolved Problems Problem Noted Date Diagnosed Date Resolved Date Acute kidney injury 07/20/2019 07/05/20 Hyperkalemia 07/20/2019 07/05/2020 Immunizations Immunization Administration Dates [...] Comments Blood Pressure 153/76 07/08/2022 2:24 PM PARTS DRIVER Pulse 71 07/08/2022 2:24 PM PARTS DRIVER Temperature 36.5 C (97.7 F) 01/16/2022 5:20 PM CDT Respiratory Rate 18 07/08/2022 2:24 PM PARTS DRIVER Oxygen Saturation 96% 07/08/2022 2:24 PM PARTS DRIVER Inhaled Oxygen Concentration - - Weight 89.4 kg (197 lb) 01/16/2022 5:20 PM CDT Height 157.5 cm (5' 2) 04/15/2022 2:28 PM CDT Body Mass Index 36.03 01/07/2022 12:59 PM CDT Plan of Treatment Health Maintenance Due Date Last Done Comments Colon Cancer Screening-Colonoscopy 1950 Depression Screening 1950 Osteoporosis Screening-Bone Density Scan 1952 Hepatitis B Screening 1970 Well Visit 65+ 2017 Fall Risk Assessment 07/12/2021 07/12/2020 Breast Cancer Screening-Mammogram 02/19/2024 023 Covid-19 Vaccine (2023-2 5 season) 2024 07/29/2021, 05/29/2021, 08/14/2020, Additional history exists Influenza Vaccine (#1) 2025 2, 05/16/2019, 05/04/2018, Additional history exists DTaP/Tdap/Td Vaccine (2 - Td or Tdap) 06/28/2029 06/28/2019 Pneumococcal vaccine 65+ Completed 018, 05/04/2018, 04/04/2015 Zoster Vaccine Completed 01/25/2019, 10/26, 11/15/2018 Hepatitis C Screening Completed 06/10/2019 Medical Devices Implanted Type Area Supervisor Line Department Device Identifier Shelf Expiration Date Model / Serial / Lot Synthes 223.581 Lcp Combi [id number] 8 Hole Limit Contact Taper End Plate Bone - S0 - [id number] Implanted:Qty: 1 on 06/28/2019 by Lo Laura DO at [facility] Plate Left: Tibia Synthes I 223.581 / 0 / 0 Synthes 212.106 3.5mm 2.9mm 20mm Self Tap Lock Stardrive Conical Head T15 Full - S0 - [id number] Implanted:Qty: 1 on 06/28/2019 by Lo Laura DO at [facility] Screw Left: Tibia Synthes I 212.106 / 0 / 0 Synthes 212.108 3.5mm 2.9mm 24mm Self Tap Lock Stardrive Conical Head Pelvis T15 - S0 - [id number] Implanted:Qty: 1 on 06/28/2019 by Lo Laura DO at [facility] Screw Left: Tibia Synthes I 212.108 / 0 / 0 Synthes 212.109 3.5mm 2.9mm 26mm Self Tap Lock Stardrive Conical Head T15 Full - S0 - [id number] Implanted:Qty: 1 on 06/28/2019 by Lo Laura DO at [facility] Screw Left: Tibia Synthes I 212.109 / 0 / 0 Synthes 212.104 3.5mm 2.9mm 16mm Self Tap Lock Stardrive Conical Head T15 Full - S0 - [id number] Implanted:Qty: 2 on 06/28/2019 by Lo Laura DO at [facility] Screw Left: Tibia Synthes I 212.104 / 0 / 0 Synthes 212.107 3.5mm 2.9mm 22mm Self Tap Lock Stardrive Conical Head T15 Full - S0 - [id number] Implanted:Qty: 1 on 06/28/2019 by Lo Laura DO at [facility] Screw Left: Tibia Synthes I 212.107 / 0 / 0 Synthes 212.103 3.5mm 2.9mm 14mm Self Tap Lock Stardrive Conical Head T15 Full - [id number] Implanted:Qty: 2 on 06/30/2019 by Jacobo Shoemaker MD at [facility] Left: Tibia Synthes I 212.103 / / Synthes 212.109 3.5mm 2.9mm 26mm Self Tap Lock Stardrive Conical Head T15 Full - [id number] Implanted:Qty: 2 on 06/30/2019 by Jacobo Shoemaker MD at [facility] Left: Tibia Synthes I 212.109 / / Synthes 212.101 3.5mm 2.9mm 10mm Self Tap Lock Stardrive Conical Head T15 Full - [id number] Implanted:Qty: 1 on 06/30/2019 by Jacobo Shoemaker MD at [facility] Left: Tibia Synthes I 212.101 / / Synthes 212.107 3.5mm 2.9mm 22mm Self Tap Lock Stardrive Conical Head T15 Full - [id number] Implanted:Qty: 1 on 06/30/2019 by Jacobo Shoemaker MD at [facility] Left: Tibia Synthes I 212.107 / / Synthes 204.840 3.5mm 6mm 40mm 2.5mm Self Tap Small Hexagonal Socket Low Profile - [id number] Implanted:Qty: 1 on 06/30/2019 by Jacobo Shoemaker MD at [facility] Left: Tibia Synthes I 204.840 / / Synthes 204.832 3.5mm 6mm 32mm 2.5mm Self Tap Small Hexagonal Socket Low Profile - [id number] Implanted:Qty: 1 on 06/30/2019 by Jacobo Shoemaker MD at [facility] Left: Tibia Synthes I 204.832 / / Synthes 241.351 Lcp 12mm [id number] .7mm 5 Hole Collar 1/3 Tubular Plate Bone - [id number] Implanted:Qty: 1 on 06/30/2019 by Jacobo Shoemaker MD at [facility] Left: Tibia Synthes I 241.351 / / Synthes 241.351 Lcp 12mm [id number] .7mm 5 Hole Collar 1/3 Tubular Plate Bone - [id number] Implanted:Qty: 1 on 06/30/2019 by Jacobo Shoemaker MD at [facility] Right: Ankle Synthes I 241.351 / / Synthes 204.826 3.5mm 6mm 26mm 2.5mm Self Tap Small Hexagonal Socket Low Profile - [id number] Implanted:Qty: 1 on 06/30/2019 by Jacobo Shoemaker MD at [facility] Right: Ankle Synthes I 204.826 / / Synthes 212.102 3.5mm 2.9mm 12mm Self Tap Lock Stardrive Conical Head T15 Full - [id number] Implanted:Qty: 1 on 06/30/2019 by Jacobo Shoemaker MD at [facility] Right: Ankle Synthes I 212.102 / / Synthes 212.114 3.5mm 2.9mm 35mm Self Tap Lock Stardrive Conical Head T15 Full - [id number] Implanted:Qty: 1 on 06/30/2019 by Jacobo Shoemaker MD at [facility] Right: Ankle Synthes I 212.114 / / Synthes 223.641 Lcp Combi [id number] 14 Hole Limit Contact Taper End Plate Bone - [id number] Implanted:Qty: 1 on 06/30/2019 by Jacobo Shoemaker MD at [facility] Left: Tibia Synthes I 223.641 / / Synthes 204.824 3.5mm 6mm 24mm 2.5mm Self Tap Small Hexagonal Socket Low Profile - [id number] Implanted:Qty: 2 on 06/30/2019 by Jacobo Shoemaker MD at [facility] Left: Tibia Synthes I 204.824 / / Synthes 212.104 3.5mm 2.9mm 16mm Self Tap Lock Stardrive Conical Head T15 Full - [id number] Implanted:Qty: 2 on 06/30/2019 by Jacobo Shoemaker MD at [facility] Left: Tibia Synthes I 212.104 / / Explanted Type Area Supervisor Line Department Device Identifier Shelf Expiration Date Model / Serial / Lot Synthes 204.836 3.5mm 6mm 36mm 2.5mm Self Tap Small Hexagonal Socket Low Profile - [id number] Explanted:Qty: 1 on 06/30/2019 at [facility] Right: Ankle Synthes I 204.836 / / Synthes 212.117 3.5mm 2.9mm 40mm Self Tap Lock Stardrive Conical Head T15 Full - [id number] Explanted:Qty: 1 on 06/30/2019 at [facility] Right: Ankle Synthes I 212.117 / / Procedures Procedure Name Priority Date/Time Associated Diagnosis Comments SCREENING MAMMOGRAM BILATERAL W WILLIE Schedule Routine, Read Routine (OP Routine) 02/18/2023 1:39 PM CDT Screening mammogram, encounter for HEPATITIS PANEL, ACUTE Routine 06/10/2019 10:11 AM PARTS DRIVER from Last 3 Months or Most Recently [...] age 42, based on guidelines of the [employer] (ACR Practice Parameter for the Performance of Screening and Diagnostic Mammography) and [employer]. For women [...] * Hepatitis panel, acute (06/10/2019 10:11 AM PARTS DRIVER) HepBsAg NONREACT NONREACTIVE [facility] Comment: Siemens CentaurXP using SUSU (chemiluminescent immunoassay) technology. NONREACTIVE: IgM antibodies to Hepatitis B Surface antigen not detected. REACTIVE: IgM antibodies to Hepatitis B Surface antigen detected. Reactive results will be confirmed by neutralization testing. HBsAb qn <3.10 mIU/mL [facility] Comment: Siemens CentaurXP using SUSU (chemiluminescent immunoassay) technology. 9.99 IU/L or less.....NONREACTIVE: IgM antibodies to Hepatitis B Surface antibody are not detected. 10.00 IU/L or greater..REACTIVE: IgM antibodies to Hepatitis B Surface antibody are detected. Hep B core IgM NONREACT NONREACTIVE [facility] Comment: Siemens CentaurXP using SUSU (chemiluminescent immunoassay) technology. NONREACTIVE: IgM antibodies to Hepatitis B Core antigen not detected. EQUIVOCAL: IgM antibodies to Hepatitis B Core antigen may or may not be present. Obtain a new specimen and retest. REACTIVE: IgM antibodies to Hepatitis B Core antigen detected. Hep A IgM NONREACT NONREACTIVE [facility] Comment: Siemens CentaurXP using SUSU (chemiluminescent immunoassay) technology. NONREACTIVE: IgM antibodies to Hepatitis A not detected. This does not exclude possibility of exposure to Hepatitis A or early acute infection. EQUIVOCAL:IgM antibodies to Hepatitis A may or may not be present. Suggest recollection and retest. REACTIVE: Antibodies to Hepatitis A detected. Hep C Ab NONREACT NONREACTIVE [facility] Comment: Siemens CentaurXP using SUSU (chemiluminescent immunoassay) [...] real-time PCR method. 06/10/2019 10:1 1 AM PARTS DRIVER 06/10/2019 10:47 AM PARTS DRIVER Narrative Resulting Agency Comment IN Destiny Pereira MD LAB MICROBIOLOGY - GENERAL ORDERABLES Final Result [facility] [id number] [place], [place] [id number] [place] [address] from Last 3 Months or Most Recently Relevant to Health Maintenance Insurance [facility] [place] [place] [address] [facility] ADVANT IDPA [facility] IDIN MEDICARE Advance Directives For more information, please contact: [phone] Documents on File Type Date Recorded Patient Correctional Captain Expl anation ADVANCE DIRECTIVE 07/14/2020 6:58 AM * Full Code (Latest Code Status on File) Date Activated Date Inactivated Comments 07/05/2020 4:11 PM 07/12/2020 7:15 PM * Full Code Date Activated Date Inactivated Comments 06/28/2019 11:55 PM 07/06/2019 8:59 PM Care Teams Warhead Maintenance Specialist Relationship Specialty Start Date End Date Hernando Velasquez MD PCP - General Internal Medicine 01/07/22 Jose Manuel Gruber MD Fellow Orthopedic Surgery 07/06/19
--- OUTSIDE RECORDS SUMMARY | 2025-02-08 15:03 | XMS_ITS | Encounter Summary ---
Author Organization [facility] Facility Care Team Providers Care Fishing Reel Assembler Name Role Phone Hernando Velasquez MD Primary Care Provider [phone] Jose Manuel Gruber MD Unavailable [phone] Bernardo Edwards MD Primary Care Provider [phone] Hernando Velasquez MD Primary Care Provider [phone] Bernardo Edwards MD Primary Care Provider [phone] Bernardo Edwards MD Primary Care Provider [phone] Hernando Velasquez MD Primary Care Provider [phone] Encounter Details Date Type Department Care Team (Latest Contact Info) Description 07/12/2016 Orders Only [facility] CLINCONV ProviderLucille MD [address] [place] [id number] Social History Tobacco Use Types Packs/Day [...] Comments SCAN - LABS 07/23/2016 12:00 AM HISTOTECHNICIAN documented in this encounter Results * SCAN - LABS (07/23/2016 12:00 AM HISTOTECHNICIAN) Narrative 07/23/2016 12:00 AM HISTOTECHNICIAN Ordered by an unspecified provider. us Historical [...] documented as of this encounter Care Teams Fishing Reel Assembler Relationship Specialty Start Date End Date Hernando Velasquez MD PCP - General 12/23/18 06/13/19 Bernardo Edwards MD [address] [place] [address] PCP - General 07/05/20 07/06/20 Hernando Velasquez MD PCP - General 07/07/20 07/07/20 Bernardo Edwards MD [address] [place] [address] PCP - General 07/08/20 01/06/22 Bernardo Edwards MD [address] [place] [address] PCP - General 06/14/19 07/04/20 Hernando Velasquez MD PCP - General Internal Medicine 01/07/22 Jose Manuel Gruber MD Fellow Orthopedic Surgery 07/06/19 documented as of this encounter
--- OUTSIDE RECORDS SUMMARY | 2025-02-08 15:03 | XMS_ITS | Encounter Summary ---
Author Organization [facility] Facility Care Team Providers Care Life Skills Specialist Name Role Phone Hernando Velasquez MD Primary Care Provider [phone] Jose Manuel Gruber MD Unavailable [phone] Bernardo Edwards MD Primary Care Provider [phone] Hernando Velasquez MD Primary Care Provider [phone] Bernardo Edwards MD Primary Care Provider [phone] Bernardo Edwards MD Primary Care Provider [phone] Hernando Velasquez MD Primary Care Provider [phone] Encounter Details Date Type Department Care Team (Latest Contact Info) Description 07/22/2016 Orders Only [facility] CLINCONV ProviderLucille MD [address] [place] [address] Social History Tobacco Use Types Packs/Day [...] Comments SCAN - LABS 07/23/2016 12:00 AM RELIABILITY TECHNICIANS documented in this encounter Results * SCAN - LABS (07/23/2016 12:00 AM RELIABILITY TECHNICIANS) Narrative 07/23/2016 12:00 AM RELIABILITY TECHNICIANS Ordered by an unspecified provider. us Historical [...] documented as of this encounter Care Teams Life Skills Specialist Relationship Specialty Start Date End Date Hernando Velasquez MD PCP - General 12/23/18 06/13/19 Bernardo Edwards MD [address] [place] [address] PCP - General 07/05/20 07/06/20 Hernando Velasquez MD PCP - General 07/07/20 07/07/20 Bernardo Edwards MD [address] [place] [address] PCP - General 07/08/20 01/06/22 Bernardo Edwards MD [address] [place] [address] PCP - General 06/14/19 07/04/20 Hernando Velasquez MD PCP - General Internal Medicine 01/07/22 Jose Manuel Gruber MD Fellow Orthopedic Surgery 07/06/19 documented as of this encounter
--- OUTSIDE RECORDS SUMMARY | 2025-02-08 15:03 | XMS_ITS | Clinical Summary ---
Author Organization [facility] Address Formerly [facility] [place] [address] Care Team Providers Care Veneer Jointer Operator Name Role Phone Marcia Gaines MD Primary Care Provider [phone] Allergies Active Allergy Reactions Criticality Noted Date [...] tartrate 25 MG tablet 1 Active NYSTATIN 057751 UNIT/GM powder 1 Active ondansetron 8 MG [...] above-knee amput ation of left lower extremity ([facility]) 08/02/2020 Leg skin lesion, left 07/05/2020 Overview (05/06/2021): Added automatically from request for surgery [id number] Infection 07/05/2020 Overview (05/06/2021): Last Assessment & [...] left lower extremity. - PM&R consulted. - Appellate Law Clerk placed stump drive in waiter/waitress / ampushield. Awaiting delivery of limb protector. - Patient not interested in prosthesis at this time. - PT/OT consults. - Plan for patient to return to her prior SNF when medically stable with ongoing PT/OT. - ID and Ortho following. COVID-19 07/05/2020 Overview (05/06/2021): Last Assessment & Plan: - Patient tested positive for COVID-19 on 06/21/20 at [place] ([facility] in [place], [place]). - She reports her only symptom [...] Plan: - As elsewhere Chronic respiratory failure ([facility]) Overview (05/06/2021): Last Assessment & Plan: - Per pt 2/2 COPD. No sings of acute exacerbation. - Continue home flonase - Continue home albuterol prn - On home is on 4L O2 at baseline Chronic lumbosacral pain 07/20/2019 Biliary colic 07/20/2019 Acute exacerbation of chronic low back pain 06/26 Abnormal x-ray of extremity 07/20/2019 Syncope due to sick sinus syndrome ([facility]) 06/28/2019 Open displaced comminuted fr acture of shaft of left tibia, type IIIA, IIIB, or IIIC 06/28/2019 Overview (05/06/2021): Added automatically from request for surgery [id number] Last Assessment & Plan: - See above. Moderate essential hypertension 06/28/2019 Overview (05/06/2021): Last Assessment & Plan: - Follows with cardiology. - Continue home amlodipine, metoprolol, lasix, spironolactone. - Switched olmesartan to losartan as not on formulary. Intractable seizure disorder ([facility]) 1 08/29/2018 Bipolar I disorder with anxious distress ([facility]) 06/28/2019 Traumatic rhabdomyolysis 11/23/2017 Hyponatremia 11/23/2017 Overview [...] 2017 Dexa Scan (General) 2017 COVID-19 Vaccine (3 - 2023-2 5 season) 2024 08/15/2020, 07/24/2020 RSV Immunization or 60+ Years (1 - 1-dose 75+ series) 12/02/2027 DTaP, Tdap and Td Vaccines ( 2 - Td or Tdap) 06/28/2029 06/28/2019 Pneumococcal Vaccine: 50+ Years Completed 07/25/2018, 05/04/2018, 04/04/2015 Zoster Vaccines Completed 01/25/2019, 11/22/2018, 11/15/2018 Meningococcal B Vaccine Aged Out No l onger eligible based on patient's age to complete this topic Meningococcal Vaccine Aged Out No trent carlotta eligible based on patient's age to complete this topic RSV Immunizations Under 20 Months Aged Out No longer eligible b ased on patient's age to complete this topic Additional Health Concerns Infection Onset Date Last Indicated ESBL - Extended Spectrum Beta-lactamase 05/09/20 21 05/09/2021 Insurance MEDICAID AET MEDICARE Care Teams Veneer Jointer Operator Relationship Specialty Start Date End Date Marcia Gaines MD PCP - General 08/18/16
--- OUTSIDE RECORDS SUMMARY | 2025-02-08 15:03 | XMS_ITS | Referral Summary ---
Author Organization [facility] Healthcare Address [address] [place] [address] Care Team Providers Care Crane Ladle Person Name Role Phone Jose Manuel Gruber MD Unavailable [phone] Hernando Velasquez MD Primary Care Provider [phone] Allergies Active Allergy Reactions Criticality Noted Date Comments Barbiturates Unknown,Other (See comments) Medium 09/13/2006 Diazepam Unknown,Other (See comments) Low 09/13/2006 Fish Containing Products Anaphylaxis High 07/05/2019 Iodine Unknown,Other (See comments) Low 09/13/2006 Latex Unknown 06/28/2019 Menthol Hives,Itching,Rash Medium 07/08/2022 North Powder-3 Fatty Acids Unknown,Other (See comments) Low 12/12/2010 [...] 04/15/2022 Assessment & Plan (07/08/2022 2:39 PM POLY AREA SUPERVISOR): I did recommend that the patient decrease [...] 01/07/2022 Assessment & Plan (07/08/2022 2:39 PM POLY AREA SUPERVISOR): The patient does have some cough with [...] 01/07/2022 Assessment & Plan (07/08/2022 2:39 PM POLY AREA SUPERVISOR): She was intolerant of CPAP therapy and [...] 07/05/2020 Assessment & Plan (07/11/2020 6:58 AM POLY AREA SUPERVISOR): - Patient tested positive for COVID-19 on 06/21/20 at her senior care ([facility] in [place], [place]). - She reports her only symptom [...] SNF. Assessment & Plan (07/07/2020 6:25 PM POLY AREA SUPERVISOR): - Pt states she was actually tested [...] protocol Assessment & Plan (07/06/2020 11:59 AM POLY AREA SUPERVISOR): - recommend getting records from SNF to establish exact date of first (+) COVID test. - pt likely has completed days of isolation. Assessment & Plan (07/06/2020 7:34 AM POLY AREA SUPERVISOR): - Per report, pt was tested for [...] protocol Assessment & Plan (07/05/2020 5:40 PM POLY AREA SUPERVISOR): - Per report, pt was tested for [...] 07/05/2020 Assessment & Plan (07/11/2020 6:57 AM POLY AREA SUPERVISOR): History of open periprosthetic tibia/fibula fracture s/p [...] left lower extremity. - PM&R consulted. - Auto Polisher placed stump sulky driver / ampushield. Awaiting delivery of limb protector. - Patient not interested in prosthesis at this time. - PT/OT consults. - Plan for patient to return to her prior SNF when medically stable with ongoing PT/OT. - ID and Ortho following. Assessment & Plan (07/07/2020 6:27 PM POLY AREA SUPERVISOR): - History of open periprosthetic tibia/fibula fracture [...] extremity Assessment & Plan (07/06/2020 3:07 PM POLY AREA SUPERVISOR): - Cellulitis vs subcutaneous infection vs OM [...] recs. Assessment & Plan (07/05/2020 6:03 PM POLY AREA SUPERVISOR): - Cellulitis vs subcutaneous infection vs OM [...] (07/08/2020): Added automatically from request for surgery [id number] Abnormal x-ray of extremity 07/20/2019 Acute exacerbation of chronic low back pain 06/26 Biliary colic 07/20/2019 Chronic lumbosacral pain 07/20/2019 Chronic respiratory failure 07/20/2019 Assessment & Plan (07/08/2020 4:27 PM POLY AREA SUPERVISOR): - Per pt 2/2 COPD. No sings of acute exacerbation. - Continue home flonase - Continue home albuterol prn - On home is on 4L O2 at baseline Assessment & Plan (07/07/2020 6:26 PM POLY AREA SUPERVISOR): - Per pt 2/2 COPD. No sings of acute exacerbation. - Continue home flonase - Continue home albuterol prn - On baseline 4L O2 Assessment & Plan (07/06/2020 7:33 AM POLY AREA SUPERVISOR): - Per pt 2/2 COPD. No sings of acute exacerbation. - Continue home flonase - Continue home albuterol prn - On baseline 4L O2 Assessment & Plan (07/05/2020 6:00 PM POLY AREA SUPERVISOR): - Per pt 2/2 COPD. No sings of acute exacerbation. - Continue home flonase - Continue home albuterol prn - On baseline 4L O2 Closed displaced bimalleolar fracture of right l ower leg 07/20/2019 Assessment & Plan (07/05/2020 6:01 PM POLY AREA SUPERVISOR): - As elsewhere Deep venous insufficiency 07/20/2019 [...] 06/28/2019 Assessment & Plan (07/08/2020 4:26 PM POLY AREA SUPERVISOR): - Follows with cardiology. - Continue home amlodipine, metoprolol, lasix, spironolactone. - Switched olmesartan to losartan as not on formulary. Assessment & Plan (07/07/2020 6:26 PM POLY AREA SUPERVISOR): - Follows with cardiology - Continue home amlodipine, metoprolol, lasix, spironolactone - Switched olmesartan to losartan as not on formulary Assessment & Plan (07/06/2020 3:04 PM POLY AREA SUPERVISOR): - Follows with cardiology - Continue home amlodipine, metoprolol, lasix, spironolactone - Switched olmesartan to losartan as not on formulary Assessment & Plan (07/05/2020 5:58 PM POLY AREA SUPERVISOR): - Follows with cardiology - Continue home amlodipine, metoprolol, lasix, spironolactone - Switch olmesartan to losartan as not on formulary Syncope due to sick sinus syndrome 06/28/2019 Open displaced comminuted fr acture of shaft of left tibia, type IIIA, IIIB, or IIIC 06/28/2019 Overview (06/28/2019): Added automatically from request for surgery [id number] Assessment & Plan (07/08/2020 4:27 PM POLY AREA SUPERVISOR): - See above. 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 After hours, the ID fellow range conservationist can be reached at [phone]. Assessment & Plan (07/05/2020 5:59 PM POLY AREA SUPERVISOR): - L tibia and R ankle fractures s/p BRENNA in 06/2020 - Complicated by poor healing and multiple infections of L anterior leg wound - Pt of Dr. Shoemaker Hyponatremia 11/23/2017 Assessment & Plan (07/11/2020 6:59 AM POLY AREA SUPERVISOR): - Pt with history of hypoNa (per report, baseline mid 120- low 130s). - Na 126 on admission. No AMS. - TSH wnl. Cortisol 17. - Na stable. Assessment & Plan (07/07/2020 6:26 PM POLY AREA SUPERVISOR): - Pt with history of hypoNa (per report, baseline mid 120- low 130s). - Na 126 on admission. No AMS. - TSH wnl. Cortisol 17. - Diuretics were held and Na improved to 132. Restart when able. Assessment & Plan (07/06/2020 7:31 AM POLY AREA SUPERVISOR): - Pt with history of hypoNa (per [...] Comments Blood Pressure 153/76 07/08/2022 2:24 PM POLY AREA SUPERVISOR Pulse 71 07/08/2022 2:24 PM POLY AREA SUPERVISOR Temperature 36.5 C (97.7 F) 01/16/2022 5:20 PM CDT Respiratory Rate 18 07/08/2022 2:24 PM POLY AREA SUPERVISOR Oxygen Saturation 96% 07/08/2022 2:24 PM POLY AREA SUPERVISOR Inhaled Oxygen Concentration - - Weight 89.4 kg (197 lb) 01/16/2022 5:20 PM CDT Height 157.5 cm (5' 2) 04/15/2022 2:28 PM CDT Body Mass Index 36.03 01/07/2022 12:59 PM CDT Plan of Treatment Not on file Medical Devices Implanted Type Area Paper Inserter Device Identifier Shelf Expiration Date Model / Serial / Lot Synthes 223.581 Lcp Combi [id number] 8 Hole Limit Contact Taper End Plate Bone - S0 - [id number] Implanted:Qty: 1 on 06/28/2019 by Lo Laura DO at [facility] Plate Left: Tibia Synthes I 223.581 / 0 / 0 Synthes 212.106 3.5mm 2.9mm 20mm Self Tap Lock Stardrive Conical Head T15 Full - S0 - [id number] Implanted:Qty: 1 on 06/28/2019 by Lo Laura DO at [facility] Screw Left: Tibia Synthes I 212.106 / 0 / 0 Synthes 212.108 3.5mm 2.9mm 24mm Self Tap Lock Stardrive Conical Head Pelvis T15 - S0 - [id number] Implanted:Qty: 1 on 06/28/2019 by Lo Laura DO at [facility] Screw Left: Tibia Synthes I 212.108 / 0 / 0 Synthes 212.109 3.5mm 2.9mm 26mm Self Tap Lock Stardrive Conical Head T15 Full - S0 - [id number] Implanted:Qty: 1 on 06/28/2019 by Lo Laura DO at [facility] Screw Left: Tibia Synthes I 212.109 / 0 / 0 Synthes 212.104 3.5mm 2.9mm 16mm Self Tap Lock Stardrive Conical Head T15 Full - S0 - [id number] Implanted:Qty: 2 on 06/28/2019 by Lo Laura DO at [facility] Screw Left: Tibia Synthes I 212.104 / 0 / 0 Synthes 212.107 3.5mm 2.9mm 22mm Self Tap Lock Stardrive Conical Head T15 Full - S0 - [id number] Implanted:Qty: 1 on 06/28/2019 by Lo Laura DO at [facility] Screw Left: Tibia Synthes I 212.107 / 0 / 0 Synthes 212.103 3.5mm 2.9mm 14mm Self Tap Lock Stardrive Conical Head T15 Full - [id number] Implanted:Qty: 2 on 06/30/2019 by Jacobo Shoemaker MD at [facility] Left: Tibia Synthes I 212.103 / / Synthes 212.109 3.5mm 2.9mm 26mm Self Tap Lock Stardrive Conical Head T15 Full - [id number] Implanted:Qty: 2 on 06/30/2019 by Jacobo Shoemaker MD at [facility] Left: Tibia Synthes I 212.109 / / Synthes 212.101 3.5mm 2.9mm 10mm Self Tap Lock Stardrive Conical Head T15 Full - [id number] Implanted:Qty: 1 on 06/30/2019 by Jacobo Shoemaker MD at [facility] Left: Tibia Synthes I 212.101 / / Synthes 212.107 3.5mm 2.9mm 22mm Self Tap Lock Stardrive Conical Head T15 Full - [id number] Implanted:Qty: 1 on 06/30/2019 by Jacobo Shoemaker MD at [facility] Left: Tibia Synthes I 212.107 / / Synthes 204.840 3.5mm 6mm 40mm 2.5mm Self Tap Small Hexagonal Socket Low Profile - [id number] Implanted:Qty: 1 on 06/30/2019 by Jacobo Shoemaker MD at [facility] Left: Tibia Synthes I 204.840 / / Synthes 204.832 3.5mm 6mm 32mm 2.5mm Self Tap Small Hexagonal Socket Low Profile - [id number] Implanted:Qty: 1 on 06/30/2019 by Jacobo Shoemaker MD at [facility] Left: Tibia Synthes I 204.832 / / Synthes 241.351 Lcp 12mm [id number] .7mm 5 Hole Collar 1/3 Tubular Plate Bone - [id number] Implanted:Qty: 1 on 06/30/2019 by Jacobo Shoemaker MD at [facility] Left: Tibia Synthes I 241.351 / / Synthes 241.351 Lcp 12mm [id number] .7mm 5 Hole Collar 1/3 Tubular Plate Bone - [id number] Implanted:Qty: 1 on 06/30/2019 by Jacobo Shoemaker MD at [facility] Right: Ankle Synthes I 241.351 / / Synthes 204.826 3.5mm 6mm 26mm 2.5mm Self Tap Small Hexagonal Socket Low Profile - [id number] Implanted:Qty: 1 on 06/30/2019 by Jacobo Shoemaker MD at [facility] Right: Ankle Synthes I 204.826 / / Synthes 212.102 3.5mm 2.9mm 12mm Self Tap Lock Stardrive Conical Head T15 Full - [id number] Implanted:Qty: 1 on 06/30/2019 by Jacobo Shoemaker MD at [facility] Right: Ankle Synthes I 212.102 / / Synthes 212.114 3.5mm 2.9mm 35mm Self Tap Lock Stardrive Conical Head T15 Full - [id number] Implanted:Qty: 1 on 06/30/2019 by Jacobo Shoemaker MD at [facility] Right: Ankle Synthes I 212.114 / / Synthes 223.641 Lcp Combi [id number] 14 Hole Limit Contact Taper End Plate Bone - [id number] Implanted:Qty: 1 on 06/30/2019 by Jacobo Shoemaker MD at [facility] Left: Tibia Synthes I 223.641 / / Synthes 204.824 3.5mm 6mm 24mm 2.5mm Self Tap Small Hexagonal Socket Low Profile - [id number] Implanted:Qty: 2 on 06/30/2019 by Jacobo Shoemaker MD at [facility] Left: Tibia Synthes I 204.824 / / Synthes 212.104 3.5mm 2.9mm 16mm Self Tap Lock Stardrive Conical Head T15 Full - [id number] Implanted:Qty: 2 on 06/30/2019 by Jacobo Shoemaker MD at [facility] Left: Tibia Synthes I 212.104 / / Explanted Type Area Paper Inserter Device Identifier Shelf Expiration Date Model / Serial / Lot Synthes 204.836 3.5mm 6mm 36mm 2.5mm Self Tap Small Hexagonal Socket Low Profile - [id number] Explanted:Qty: 1 on 06/30/2019 at [facility] Right: Ankle Synthes I 204.836 / / Synthes 212.117 3.5mm 2.9mm 40mm Self Tap Lock Stardrive Conical Head T15 Full - [id number] Explanted:Qty: 1 on 06/30/2019 at [facility] Right: Ankle Synthes I 212.117 / / Procedures Procedure Name Priority Date/Time Associated Diagnosis Comments SCREENING MAMMOGRAM BILATERAL W WILLIE Schedule Routine, Read Routine (OP Routine) 02/18/2023 1:39 PM CDT Screening mammogram, encounter for HEPATITIS PANEL, ACUTE Routine 06/10/2019 10:11 AM POLY AREA SUPERVISOR from Last 3 Months or Most Recently [...] age 42, based on guidelines of the [employer] (ACR Practice Parameter for the Performance of Screening and Diagnostic Mammography) and [employer]. For women [...] * Hepatitis panel, acute (06/10/2019 10:11 AM POLY AREA SUPERVISOR) HepBsAg NONREACT NONREACTIVE [facility] Comment: Siemens CentaurXP using SUSU (chemiluminescent immunoassay) technology. NONREACTIVE: IgM antibodies to Hepatitis B Surface antigen not detected. REACTIVE: IgM antibodies to Hepatitis B Surface antigen detected. Reactive results will be confirmed by neutralization testing. HBsAb qn <3.10 mIU/mL [facility] Comment: Siemens CentaurXP using SUSU (chemiluminescent immunoassay) technology. 9.99 IU/L or less.....NONREACTIVE: IgM antibodies to Hepatitis B Surface antibody are not detected. 10.00 IU/L or greater..REACTIVE: IgM antibodies to Hepatitis B Surface antibody are detected. Hep B core IgM NONREACT NONREACTIVE [facility] Comment: Siemens CentaurXP using SUSU (chemiluminescent immunoassay) technology. NONREACTIVE: IgM antibodies to Hepatitis B Core antigen not detected. EQUIVOCAL: IgM antibodies to Hepatitis B Core antigen may or may not be present. Obtain a new specimen and retest. REACTIVE: IgM antibodies to Hepatitis B Core antigen detected. Hep A IgM NONREACT NONREACTIVE [facility] Comment: Siemens CentaurXP using SUSU (chemiluminescent immunoassay) technology. NONREACTIVE: IgM antibodies to Hepatitis A not detected. This does not exclude possibility of exposure to Hepatitis A or early acute infection. EQUIVOCAL:IgM antibodies to Hepatitis A may or may not be present. Suggest recollection and retest. REACTIVE: Antibodies to Hepatitis A detected. Hep C Ab NONREACT NONREACTIVE [facility] Comment: Siemens CentaurXP using SUSU (chemiluminescent immunoassay) [...] real-time PCR method. 06/10/2019 10:1 1 AM POLY AREA SUPERVISOR 06/10/2019 10:47 AM POLY AREA SUPERVISOR Narrative Resulting Agency Comment IN Dsetiny Pereira MD LAB MICROBIOLOGY - GENERAL ORDERABLES Final Result [facility] [address] [place], [place] [id number] [place] [address] from Last 3 Months or Most Recently Relevant to Health Maintenance Insurance [facility] [employer] MEDICARE Advance Directives For more information, please contact: [phone] Documents on File Type Date Recorded Patient Fishery Biologist Expl anation ADVANCE DIRECTIVE 07/14/2020 6:58 AM * Full Code (Latest Code Status on File) Date Activated Date Inactivated Comments 07/05/2020 4:11 PM 07/12/2020 7:15 PM * Full Code Date Activated Date Inactivated Comments 06/28/2019 11:55 PM 07/06/2019 8:59 PM Care Teams Crane Ladle Person Relationship Specialty Start Date End Date Hernando Velasquez MD PCP - General Internal Medicine 01/07/22 Jose Manuel Gruber MD Fellow Orthopedic Surgery 07/06/19
--- NOTE | 2025-02-08 15:08 | ED_ITS ---
HPI - General Adult General Chief complaint: Weakness <Dayne Dietz MD - Last Filed: 02/08/25 15:22> Stated complaint: low BP, low Pulse <Dayne Dietz MD - Last Filed: 02/08/25 15:22> Time Seen by Provider: 02/08/25 14:39 <Dayne Dietz MD - Last Filed: 02/08/25 15:22> Source: patient <Dayne Dietz MD - Last Filed: 02/08/25 15:22> Mode of arrival: EMS <Dayne Dietz MD - Last Filed: 02/08/25 15:22> Limitations: no limitations <Dayne Dietz MD - Last Filed: 02/08/25 15:22> History of Present Illness HPI narrative: 74-year-old with a history of hypertension, hyperlipidemia, obstructive sleep apnea, bipolar disorder, was chronic respiratory failure on 2 L home oxygen,Afib on Xarelto was brought in from long-term with the complaints of lethargy, low pressure and heart rate. Patient was found to be hypertensive and bradycardic she was given IV fluids and 1 mg of atropine by EMS. Patient also complains of headache which has been ongoing for last several months. EMS also reports that she is unable to participate in physical therapy . Patient denies any recent falls. No history of any chest pain or shortness of breath. Denies any nausea, vomiting or abdominal pain. <Dayne Dietz MD - Last Filed: 02/08/25 15:22> Onset (ago): day(s) (1) <Dayne Dietz MD - Last Filed: 02/08/25 15:22> Severity: moderate <Dayne Dietz MD - Last Filed: 02/08/25 15:22> Associated symptoms: weakness <Dayne Dietz MD - Last Filed: 02/08/25 15:22> Treatments prior to arrival: other (IV fluid, 1 mg of IV atropine) <Dayne Dietz MD - Last Filed: 02/08/25 15:22> Related Data Home medications: Home Medications ?Medication ?Instructions ?Recorded ?Confirmed ?Last Taken ?Type fluticasone propionate 50 1 spray intranasal DAILY 09/09/19 01/18/25 Unknown History mcg/actuation nasal spray,suspension vitamin E 268 mg (400 unit) capsule 800 unit PO DAILY 09/09/19 01/18/25 Unknown History docusate sodium 100 mg tablet 200 mg PO BID Constipation 05/31/20 01/18/25 Unknown History amlodipine 10 mg tablet 10 mg PO DAILY 04/23/24 01/18/25 Unknown History bisacodyl 5 mg tablet,delayed 10 mg PO HS PRN Constipation 04/23/24 01/18/25 Unknown History release (Dulcolax (bisacodyl)) guaifenesin 1,200 mg tablet, 1,200 mg PO BID 04/23/24 01/18/25 Unknown History extended release 12 hr (Mucinex) memantine 5 mg tablet 5 mg PO BID 04/23/24 01/18/25 Unknown History ondansetron HCl 4 mg tablet 4 mg PO TID 04/23/24 01/18/25 Unknown History polyethylene glycol 3350 17 17 g PO DAILY PRN Constipation 04/23/24 01/18/25 Unknown History gram/dose oral powder (Miralax) isosorbide mononitrate 30 mg 30 mg PO DAILY 08/06/24 01/18/25 Unknown History tablet,extended release 24 hr lidocaine 5 % topical patch 2 patch topical HS 08/06/24 01/18/25 Unknown History (Lidoderm) magnesium hydroxide 400 mg/5 mL 30 ml PO DAILY PRN constipation 08/06/24 01/18/25 Unknown History oral suspension (Gentle Laxative (magnesium hydroxide)) atorvastatin 10 mg tablet (Lipitor) 10 mg PO HS 01/18/25 01/18/25 Unknown History buspirone 10 mg tablet 10 mg PO TID 01/18/25 01/18/25 Unknown History clonazepam 0.5 mg tablet 0.5 mg PO Q12H 01/18/25 01/18/25 Unknown History famciclovir 250 mg tablet 250 mg PO Q12H 01/18/25 01/18/25 Unknown History hydralazine 10 mg tablet 50 mg PO TID 01/18/25 01/18/25 Unknown History lactulose 10 gram/15 mL oral 30 g PO BID 01/18/25 01/18/25 Unknown History solution (Enulose) magnesium citrate 300 ml PO DAILY PRN constipation 01/18/25 01/18/25 Unknown History polyvinyl alcohol-povidone 0.5 2 drp EACH EYE BID PRN dry eye(s) 01/18/25 01/18/25 Unknown History %-0.6 % eye drops (Artificial Tears (polyvinyl alcohol/povidone)) primidone 50 mg tablet See Rx Instructions .Route .COMPLEX 01/18/25 01/18/25 Unknown History sennosides 8.6 mg-docusate sodium 2 tab-cap PO BID 01/18/25 01/18/25 Unknown History 50 mg tablet (Senna Plus) spironolactone 25 mg tablet 25 mg PO DAILY 01/18/25 01/18/25 Unknown History venlafaxine 37.5 mg 37.5 mg PO DAILY 01/18/25 01/18/25 Unknown History capsule,extended release 24 hr zolpidem 5 mg tablet 5 mg PO HS 01/18/25 01/18/25 Unknown History <Dayne Dietz MD - Last Filed: 02/08/25 15:22> Allergies/adverse reactions: Allergies Allergy/AdvReac Type Severity Reaction Status Date / Time Fish Containing Products Allergy Severe Dyspnea / Verified 04/23/24 19:11 SOB Iodinated Contrast Media Allergy Intermediate HIVES, RED Verified 04/27/24 08:14 FACE iodine Allergy Unknown Unknown Verified 04/23/24 19:11 Barbiturates Allergy Unknown Verified 04/23/24 19:11 bupivacaine Allergy Unknown Verified 04/23/24 20:51 diazepam (From Valium) Allergy Unknown Verified 04/23/24 19:11 latex Allergy Unknown Verified 04/23/24 19:11 menthol Allergy Unknown Verified 04/23/24 20:51 Sulfa (Sulfonamide Allergy Unknown Verified 04/23/24 19:11 Antibiotics) thiopental (From Pentothal) Allergy Unknown Verified 04/27/24 08:14 wool Allergy Unknown Verified 04/23/24 20:51 <Dayne Dietz MD - Last Filed: 02/08/25 15:22> Review of Systems 2 Review of Systems: All systems reviewed & are unremarkable except as noted in HPI and below <Dayne Dietz MD - Last Filed: 02/08/25 15:22> Constitutional: Constitutional: Reports no additional constitutional complaints <Dayne Dietz MD - Last Filed: 02/08/25 15:22> Eyes: Eyes: Reports no additional eye complaints <Dayne Dietz MD - Last Filed: 02/08/25 15:22> ENT: Reports system reviewed and no additional complaints, except as documented <Dayne Dietz MD - Last Filed: 02/08/25 15:22> Cardiovascular: Cardiovascular: Reports no additional cardiovascular complaints <Dayne Dietz MD - Last Filed: 02/08/25 15:22> Respiratory: Respiratory: Reports no additional respiratory complaints < Dayne Dietz MD - Last Filed: 02/08/25 15:22> Gastrointestinal: Gastrointestinal: Reports no additional gastrointestinal complaints <Dayne Dietz MD - Last Filed: 02/08/25 15:22> Musculoskeletal: Musculoskeletal: Reports no additional musculoskeletal complaints <Dayne Dietz MD - Last Filed: 02/08/25 15:22> Integumentary/Breasts: Skin/Breast: Reports system reviewed and no additional complaints, except as docu <Dayne Dietz MD - Last Filed: 02/08/25 15:22> Neurologic: Reports system reviewed and no additional complaints, except as documented <Dayne Dietz MD - Last Filed: 02/08/25 15:22> PMFSH Past Medical History Medical History: Medical History History of atrial fibrillation Failure to thrive CVA (cerebral vascular accident) Chronic anticoagulation Kidney stone Chronic anemia Chronic respiratory failure with hypoxia, on home oxygen therapy Bipolar disorder Gastroesophageal reflux disease Hyperlipidemia Hypertension Obstructive sleep apnea intolerant to CPAP Left tibial fracture Chronic hyponatremia Shingles Anxiety Depression Gastroparesis Diverticulitis Asthma Epilepsy no longer on medication Seasonal allergies <Dayne Dietz MD - Last Filed: 02/08/25 15:22> Surgical History Surgical History: Surgical History History of left above knee amputation History of right shoulder replacement History of cholecystectomy History of left knee replacement History of hysterectomy History of open reduction and internal fixation (ORIF) procedure Left tibia and right ankle. History of appendectomy History of tonsillectomy <Dayne Dietz MD - Last Filed: 02/08/25 15:22> Family History Family History: Family History Mother Suicide Depression Heart disease Hypertension Heart failure Sibling Suicide Father Diabetes mellitus Emphysema lung <Dayne Dietz MD - Last Filed: 02/08/25 15:22> Social History Social History: Social History Social History: Surrogate medical decision maker: Martina Rodney, daughter. Code status: Full code. Smoking status: Never smoker Second hand tobacco smoke exposure: No Alcohol intake: never Substance use: never Substance use type: does not use Do You Feel Safe in your Home?: Yes Lack of Transportation: No Lack of Food: Never True Current Housing: I Have Housing Concerned About Future Housing: No Difficulty Paying Gas/Electric Bills: No Difficulty Paying for Meds: No Currently Unemployed: No Education: Decline to Answer Difficulty w/ Childcare or Family Care: No Living arrangements: [place] Occupation/Education: retired Spiritual care concerns: No Agree to blood products: No <Dayne Dietz MD - Last Filed: 02/08/25 15:22> Exam 2 Narrative: GENERAL: Lethargic , well-nourished, and in no acute distress. HEAD: Normocephalic, atraumatic. EYES: PERRLA and EOMI. ENT: Nares clear, no rhinorrhea or epistaxis. Mucous membranes moist. NECK: Supple. CHEST: Clear to auscultation. No respiratory distress. HEART: Regular rate and rhythm. No murmur heard. Normal peripheral pulses. ABDOMEN: Soft, nontender, nondistended, normal active bowel sounds. EXTREMITIES: Normal range of motion. No edema. LUAN on the left SKIN: Warm, dry, no rash. NEURO: No focal deficits. Alert and oriented x3.. <Dayne Dietz MD - Last Filed: 02/08/25 15:22> Course Vital Signs Vital signs: Vital Signs Pulse Rate 52 L 02/08/25 14:28 Temperature 36.4 C L 02/08/25 20:26 Pulse Rate 51 L 02/08/25 20:26 Respiratory Rate 10 L 02/08/25 20:26 Blood Pressure 147/68 H 02/08/25 20:26 Pulse Oximetry 99 02/08/25 20:26 Oxygen Delivery Nasal Cannula 02/08/25 14:29 Oxygen Flow Rate 2 02/08/25 14:29 <Dayne Dietz MD - Last Filed: 02/08/25 15:22> Vital Signs Pulse Rate 52 L 02/08/25 14:28 Temperature 36.4 C L 02/08/25 20:26 Pulse Rate 51 L 02/08/25 20:26 Respiratory Rate 10 L 02/08/25 20:26 Blood Pressure 147/68 H 02/08/25 20:26 Pulse Oximetry 99 02/08/25 20:26 Oxygen Delivery Nasal Cannula 02/08/25 14:29 Oxygen Flow Rate 2 02/08/25 14:29 <Elver Jamil MD - Last Filed: 02/08/25 21:05> Medical Decision Making Differential Diagnosis Differential Diagnosis: Sepsis, deconditioning, and electrolyte imbalance <Dayne Dietz MD - Last Filed: 02/08/25 15:22> Medical Records Medical records reviewed: Yes I reviewed the external patient's medical records. <Dayne Dietz MD - Last Filed: 02/08/25 15:22> Vital Signs Vital Signs: Vital Signs Pulse Rate 52 L 02/08/25 14:28 Temperature 36.4 C L 02/08/25 20:26 Pulse Rate 51 L 02/08/25 20:26 Respiratory Rate 10 L 02/08/25 20:26 Blood Pressure 147/68 H 02/08/25 20:26 Pulse Oximetry 99 02/08/25 20:26 Oxygen Delivery Nasal Cannula 02/08/25 14:29 Oxygen Flow Rate 2 02/08/25 14:29 <Dayne Dietz MD - Last Filed: 02/08/25 15:22> Vital Signs Pulse Rate 52 L 02/08/25 14:28 Temperature 36.4 C L 02/08/25 20:26 Pulse Rate 51 L 02/08/25 20:26 Respiratory Rate 10 L 02/08/25 20:26 Blood Pressure 147/68 H 02/08/25 20:26 Pulse Oximetry 99 02/08/25 20:26 Oxygen Delivery Nasal Cannula 02/08/25 14:29 Oxygen Flow Rate 2 02/08/25 14:29 <Elver Jamil MD - Last Filed: 02/08/25 21:05> Lab Data Result diagrams: 02/08/25 14:50 02/08/25 19:59 <Dayne Dietz MD - Last Filed: 02/08/25 15:22> Labs: Lab Results 02/08/25 02/08/25 02/08/25 Range/Units 14:50 14:51 16:04 WBC 4.8 (4.5-10.0) K/mm3 RBC 3.16 L (4.2-5.4) M/mm3 Hgb 8.8 L (12.0-15.0) g/dL Hct 26.3 L (37.0-47.0) % MCV 83.2 (80-100) fl MCH 27.8 (26-34) pg MCHC 33.5 (32-36) g/dl RDW 15.0 H (11.5-14.5) % Plt Count 152 (150-375) k/mm3 MPV 12.2 H (7.4-10.4) fl Immature Gran % (Auto) 0.4 (0-0.5) % Neut % (Auto) 58.0 (45.5-73.1) % Lymph % (Auto) 22.1 (18.3-44.2) % [place] % (Auto) 14.1 H (2.6-8.5) % Eos % (Auto) 4.8 H (0-4.4) % Baso % (Auto) 0.6 (0.2-1.2) % Lymph # (Auto) 1.05 (0.9-3.2) K/mm3 [place] # (Auto) 0.7 H (0.1-0.6) K/mm3 Eos # (Auto) 0.2 (0-0.3) K/mm3 Baso # (Auto) 0.0 (0.0-0.1) K/mm3 Abs Immat Gran (auto) 0.02 (0.00-0.031) K/mm3 Absolute Neuts (auto) 2.8 (1.3-6.7) K/mm3 Absolute Nucleated RBC 0.000 (0.0-0.012) K/mm3 Nucleated RBC % 0.0 (0.0-0.2) % Sodium 113 L* (137-145) mmol/L Potassium 4.8 (3.4-5.0) mmol/L Chloride 85 L (98-107) mmol/L Carbon Dioxide 23 (22-30) mmol/L Anion Gap 5 (4-12) mmol/L BUN 11 (7-17) mg/dL Creatinine 0.60 L (0.7-1.0) mg/dL Estim Creat Clear Calc 74 ml/min Estimated GFR > 60 (59 - ) Glucose 104 (65-110) mg/dL POC Capillary Glucose (65-105) mg/dl Lactic Acid 1.6 (0.7-2.0) mmol/L Calcium 7.7 L (8.4-10.2) mg/dL Total Bilirubin < 0.1 L (0.2-1.3) mg/dL AST 16 (14-36) U/L ALT 10 (6-35) U/L Alkaline Phosphatase 73 (38-126) U/L Total Protein 5.3 L (6.3-8.2) g/dL Albumin 2.8 L (3.5-5.1) g/dL Urine Color Yellow (Yellow) Urine Appearance Clear (Clear) Urine pH 6.5 (5.0-9.0) Ur Specific [place] 1.004 (1.001-1.035) Urine Protein Negative (Negative) mg/dL Urine Glucose (UA) Negative (Negative) mg/dL Urine Ketones Negative (Negative) mg/dL Ur Blood (Man) Negative (Negative) Urine Nitrate Positive H (Negative) Urine Bilirubin Negative (Negative) Urine Urobilinogen 0.2 (<2.0) mg/dL Leukocyte Esterase Rfl 3+ H (Negative) LEEANNE/UL Urine RBC 0-2 (0-2) /hpf Urine WBC 51-100 H (0-3) /hpf Ur Squamous Epith Cells None seen (Few) /hpf Urine Bacteria 4+ H /hpf Urine Casts 0-2 02/08/25 02/08/25 02/08/25 Range/Units 18:46 19:41 19:59 WBC (4.5-10.0) K/mm3 RBC (4.2-5.4) M/mm3 Hgb (12.0-15.0) g/dL Hct (37.0-47.0) % MCV (80-100) fl MCH (26-34) pg MCHC (32-36) g/dl RDW (11.5-14.5) % Plt Count (150-375) k/mm3 MPV (7.4-10.4) fl Immature Gran % (Auto) (0-0.5) % Neut % (Auto) (45.5-73.1) % Lymph % (Auto) (18.3-44.2) % [place] % (Auto) (2.6-8.5) % Eos % (Auto) (0-4.4) % Baso % (Auto) (0.2-1.2) % Lymph # (Auto) (0.9-3.2) K/mm3 [place] # (Auto) (0.1-0.6) K/mm3 Eos # (Auto) (0-0.3) K/mm3 Baso # (Auto) (0.0-0.1) K/mm3 Abs Immat Gran (auto) (0.00-0.031) K/mm3 Absolute Neuts (auto) (1.3-6.7) K/mm3 Absolute Nucleated RBC (0.0-0.012) K/mm3 Nucleated RBC % (0.0-0.2) % Sodium 128 L 121 L (137-145) mmol/L Potassium 2.8 L* 4.3 (3.4-5.0) mmol/L Chloride 113 H 98 (98-107) mmol/L Carbon Dioxide 13 L 22 (22-30) mmol/L Anion Gap 2 L 1 L (4-12) mmol/L BUN 6 L D 9 (7-17) mg/dL Creatinine 0.28 L 0.47 L (0.7-1.0) mg/dL Estim Creat Clear Calc 144 93 ml/min Estimated GFR > 60 > 60 (59 - ) Glucose 47 L* 72 (65-110) mg/dL POC Capillary Glucose 103 (65-105) mg/dl Lactic Acid (0.7-2.0) mmol/L Calcium 3.9 L* 6.2 L (8.4-10.2) mg/dL Total Bilirubin (0.2-1.3) mg/dL AST (14-36) U/L ALT (6-35) U/L Alkaline Phosphatase (38-126) U/L Total Protein (6.3-8.2) g/dL Albumin (3.5-5.1) g/dL Urine Color (Yellow) Urine Appearance (Clear) Urine pH (5.0-9.0) Ur Specific [place] (1.001-1.035) Urine Protein (Negative) mg/dL Urine Glucose (UA) (Negative) mg/dL Urine Ketones (Negative) mg/dL Ur Blood (Man) (Negative) Urine Nitrate (Negative) Urine Bilirubin (Negative) Urine Urobilinogen (<2.0) mg/dL Leukocyte Esterase Rfl (Negative) LEEANNE/UL Urine RBC (0-2) /hpf Urine WBC (0-3) /hpf Ur Squamous Epith Cells (Few) /hpf Urine Bacteria /hpf Urine Casts <Dayne Dietz MD - Last Filed: 02/08/25 15:22> Lab Results 02/08/25 02/08/25 02/08/25 Range/Units 14:50 14:51 16:04 WBC 4.8 (4.5-10.0) K/mm3 RBC 3.16 L (4.2-5.4) M/mm3 Hgb 8.8 L (12.0-15.0) g/dL Hct 26.3 L (37.0-47.0) % MCV 83.2 (80-100) fl MCH 27.8 (26-34) pg MCHC 33.5 (32-36) g/dl RDW 15.0 H (11.5-14.5) % Plt Count 152 (150-375) k/mm3 MPV 12.2 H (7.4-10.4) fl Immature Gran % (Auto) 0.4 (0-0.5) % Neut % (Auto) 58.0 (45.5-73.1) % Lymph % (Auto) 22.1 (18.3-44.2) % [place] % (Auto) 14.1 H (2.6-8.5) % Eos % (Auto) 4.8 H (0-4.4) % Baso % (Auto) 0.6 (0.2-1.2) % Lymph # (Auto) 1.05 (0.9-3.2) K/mm3 [place] # (Auto) 0.7 H (0.1-0.6) K/mm3 Eos # (Auto) 0.2 (0-0.3) K/mm3 Baso # (Auto) 0.0 (0.0-0.1) K/mm3 Abs Immat Gran (auto) 0.02 (0.00-0.031) K/mm3 Absolute Neuts (auto) 2.8 (1.3-6.7) K/mm3 Absolute Nucleated RBC 0.000 (0.0-0.012) K/mm3 Nucleated RBC % 0.0 (0.0-0.2) % Sodium 113 L* (137-145) mmol/L Potassium 4.8 (3.4-5.0) mmol/L Chloride 85 L (98-107) mmol/L Carbon Dioxide 23 (22-30) mmol/L Anion Gap 5 (4-12) mmol/L BUN 11 (7-17) mg/dL Creatinine 0.60 L (0.7-1.0) mg/dL Estim Creat Clear Calc 74 ml/min Estimated GFR > 60 (59 - ) Glucose 104 (65-110) mg/dL POC Capillary Glucose (65-105) mg/dl Lactic Acid 1.6 (0.7-2.0) mmol/L Calcium 7.7 L (8.4-10.2) mg/dL Total Bilirubin < 0.1 L (0.2-1.3) mg/dL AST 16 (14-36) U/L ALT 10 (6-35) U/L Alkaline Phosphatase 73 (38-126) U/L Total Protein 5.3 L (6.3-8.2) g/dL Albumin 2.8 L (3.5-5.1) g/dL Urine Color Yellow (Yellow) Urine Appearance Clear (Clear) Urine pH 6.5 (5.0-9.0) Ur Specific [place] 1.004 (1.001-1.035) Urine Protein Negative (Negative) mg/dL Urine Glucose (UA) Negative (Negative) mg/dL Urine Ketones Negative (Negative) mg/dL Ur Blood (Man) Negative (Negative) Urine Nitrate Positive H (Negative) Urine Bilirubin Negative (Negative) Urine Urobilinogen 0.2 (<2.0) mg/dL Leukocyte Esterase Rfl 3+ H (Negative) LEEANNE/UL Urine RBC 0-2 (0-2) /hpf Urine WBC 51-100 H (0-3) /hpf Ur Squamous Epith Cells None seen (Few) /hpf Urine Bacteria 4+ H /hpf Urine Casts 0-2 02/08/25 02/08/25 02/08/25 Range/Units 18:46 19:41 19:59 WBC (4.5-10.0) K/mm3 RBC (4.2-5.4) M/mm3 Hgb (12.0-15.0) g/dL Hct (37.0-47.0) % MCV (80-100) fl MCH (26-34) pg MCHC (32-36) g/dl RDW (11.5-14.5) % Plt Count (150-375) k/mm3 MPV (7.4-10.4) fl Immature Gran % (Auto) (0-0.5) % Neut % (Auto) (45.5-73.1) % Lymph % (Auto) (18.3-44.2) % [place] % (Auto) (2.6-8.5) % Eos % (Auto) (0-4.4) % Baso % (Auto) (0.2-1.2) % Lymph # (Auto) (0.9-3.2) K/mm3 [place] # (Auto) (0.1-0.6) K/mm3 Eos # (Auto) (0-0.3) K/mm3 Baso # (Auto) (0.0-0.1) K/mm3 Abs Immat Gran (auto) (0.00-0.031) K/mm3 Absolute Neuts (auto) (1.3-6.7) K/mm3 Absolute Nucleated RBC (0.0-0.012) K/mm3 Nucleated RBC % (0.0-0.2) % Sodium 128 L 121 L (137-145) mmol/L Potassium 2.8 L* 4.3 (3.4-5.0) mmol/L Chloride 113 H 98 (98-107) mmol/L Carbon Dioxide 13 L 22 (22-30) mmol/L Anion Gap 2 L 1 L (4-12) mmol/L BUN 6 L D 9 (7-17) mg/dL Creatinine 0.28 L 0.47 L (0.7-1.0) mg/dL Estim Creat Clear Calc 144 93 ml/min Estimated GFR > 60 > 60 (59 - ) Glucose 47 L* 72 (65-110) mg/dL POC Capillary Glucose 103 (65-105) mg/dl Lactic Acid (0.7-2.0) mmol/L Calcium 3.9 L* 6.2 L (8.4-10.2) mg/dL Total Bilirubin (0.2-1.3) mg/dL AST (14-36) U/L ALT (6-35) U/L Alkaline Phosphatase (38-126) U/L Total Protein (6.3-8.2) g/dL Albumin (3.5-5.1) g/dL Urine Color (Yellow) Urine Appearance (Clear) Urine pH (5.0-9.0) Ur Specific [place] (1.001-1.035) Urine Protein (Negative) mg/dL Urine Glucose (UA) (Negative) mg/dL Urine Ketones (Negative) mg/dL Ur Blood (Man) (Negative) Urine Nitrate (Negative) Urine Bilirubin (Negative) Urine Urobilinogen (<2.0) mg/dL Leukocyte Esterase Rfl (Negative) LEEANNE/UL Urine RBC (0-2) /hpf Urine WBC (0-3) /hpf Ur Squamous Epith Cells (Few) /hpf Urine Bacteria /hpf Urine Casts <Elver Jamil MD - Last Filed: 02/08/25 21:05> ABG Data ABG results: 02/08/25 14:51 Puncture Site Right radial ABG pH 7.322 L ABG pCO2 54.1 H ABG pO2 130.4 H ABG PO2/FiO2 Ratio 4.66 ABG HCO3 27.4 H ABG O2 Saturation 98.3 ABG O2 Content 13.5 L ABG Base Excess 0.8 A-a Gradient 5.4 Oxyhemoglobin 97.9 Total Hemoglobin 9.6 L O2 Delivery Device Nasal cannula O2 Liters/Min 2.0 FiO2 28 <Dayne Dietz MD - Last Filed: 02/08/25 15:22> 02/08/25 14:51 Puncture Site Right radial ABG pH 7.322 L ABG pCO2 54.1 H ABG pO2 130.4 H ABG PO2/FiO2 Ratio 4.66 ABG HCO3 27.4 H ABG O2 Saturation 98.3 ABG O2 Content 13.5 L ABG Base Excess 0.8 A-a Gradient 5.4 Oxyhemoglobin 97.9 Total Hemoglobin 9.6 L O2 Delivery Device Nasal cannula O2 Liters/Min 2.0 FiO2 28 <Elver Jamil MD - Last Filed: 02/08/25 21:05> ECG Data EKG #1: ECG completion date: 02/08/25 <Dayne Dietz MD - Last Filed: 02/08/25 15:22> ECG completion time: 14:32 <Dayne Dietz MD - Last Filed: 02/08/25 15:22> EKG Interpretation: bradycardia (50), no ST changes, NL axis and other (first degree AVblock) <Dayne Dietz MD - Last Filed: 02/08/25 15:22> Critical Care Time Critical Care Time Critical Care Time: Yes <Elver Jamil MD - Last Filed: 02/08/25 21:05> Total Critical Care Time: 75 <Elver Jamil MD - Last Filed: 02/08/25 21:05> Discharge Plan Discharge Clinical Impression: Weakness, Acute hyponatremia, Weakness generalized, Bradycardia, Acute UTI <Dayne Dietz MD - Last Filed: 02/08/25 15:22> Patient Disposition: Still a Patient <Dayne Dietz MD - Last Filed: 02/08/25 15:22> Condition: Stable <Dayne Dietz MD - Last Filed: 02/08/25 15:22> Patient Language: Croatian <Dayne Dietz MD - Last Filed: 02/08/25 15:22> Prescriptions: No Action docusate sodium 100 mg Tablet 200 mg PO BID isosorbide mononitrate 30 mg tablet extended release 24 hr 30 mg PO DAILY lidocaine [Lidoderm] 5 % adhesive patch,medicated 2 patch topical HS Patient Comments: left shoulder Rx Instructions: leave on most painful area for up to 12 hrs magnesium hydroxide [Gentle Laxative (mag hydrox)] 400 mg/5 mL suspension 30 ml PO DAILY PRN (Reason: constipation) Xarelto 20 mg Tablet 20 mg PO DAILY@1700 Qty: 60 0RF oxycodone-acetaminophen 5-325 mg Tablet 1 tablet PO Q8H PRN (Reason: Pain Rated 7-10) Qty: 10 0RF irbesartan 150 mg Tablet 300 mg PO QAM Qty: 30 0RF primidone 50 mg tablet See Rx Instructions .ROUTE .COMPLEX Rx Instructions: 200 MG PO BID; spironolactone 25 mg tablet 25 mg PO DAILY venlafaxine 37.5 mg capsule,extended release 24hr 37.5 mg PO DAILY zolpidem 5 mg tablet 5 mg PO HS buspirone 10 mg tablet 10 mg PO TID clonazepam 0.5 mg tablet 0.5 mg PO Q12H magnesium citrate Solution 300 ml PO DAILY PRN (Reason: constipation) lactulose [Enulose] 10 gram/15 mL solution 30 g PO BID famciclovir 250 mg tablet 250 mg PO Q12H atorvastatin [Lipitor] 10 mg tablet 10 mg PO HS sennosides-docusate sodium [Senna Plus] 8.6-50 mg tablet 2 tab-cap PO BID Artificial Tears(pvalch-povid) 0.5-0.6 % drops 2 drp EACH EYE BID PRN (Reason: dry eye(s)) hydralazine 10 mg Tablet 50 mg PO TID clonidine 0.1 mg/24 hr Patch Weekly 1 patch transdermal WEEKLY Qty: 4 0RF famotidine [Heartburn Relief (famotidine)] 10 mg Tablet 10 mg PO Q12HR Qty: 30 0RF metoprolol succinate [Toprol XL] 100 mg Tablet Extended Release 24 Hr 200 mg PO QAM Qty: 60 0RF amoxicillin-pot clavulanate 875-125 mg tablet 1 tablet PO Q12H Qty: 10 0RF Rx Instructions: First dose 01/21/25 HS. fluticasone propionate 50 mcg/actuation [place],Suspension 1 spray INTRANASAL DAILY vitamin E 400 unit Capsule 800 unit PO DAILY ondansetron HCl 4 mg tablet 4 mg PO TID amlodipine 10 mg tablet 10 mg PO DAILY bisacodyl [Dulcolax (bisacodyl)] 5 mg Tablet,Delayed Release (Dr/Ec) 10 mg PO HS PRN (Reason: Constipation) polyethylene glycol 3350 [Miralax] 17 gram/dose Powder 17 g PO DAILY PRN (Reason: Constipation) memantine 5 mg tablet 5 mg PO BID guaifenesin [Mucinex] 1,200 mg Tablet Extended Release 12hr 1,200 mg PO BID pregabalin [Lyrica] 150 mg Capsule 150 mg PO BID Qty: 14 0RF <Dayne Dietz MD - Last Filed: 02/08/25 15:22> Follow-up/Referrals: UNKNOWN,DOCTOR [Primary Care Provider] - <Dayne Dietz MD - Last Filed: 02/08/25 15:22>
[2025-02-08 15:21] LABS: Alanine Aminotransferase 10 U/L (6-35); Albumin Level 2.8 g/dL (3.5-5.1); Alkaline Phosphatase 73 U/L (38-126); Anion Gap 5 mmol/L (4-12); Aspartate Amino Transferase 16 U/L (14-36); Bilirubin,Total < 0.1 mg/dL (0.2-1.3); Blood Urea Nitrogen 11 mg/dL (7-17); Calcium 7.7 mg/dL (8.4-10.2); Carbon Dioxide 23 mmol/L (22-30); Chloride 85 mmol/L (98-107); Estimated CRCL calculation 74 ml/min; Estimated Glomerular Filt Rate > 60; Glucose 104 mg/dL (65-110); Potassium 4.8 mmol/L (3.4-5.0); Sodium 113 mmol/L (137-145); Total Protein 5.3 g/dL (6.3-8.2)
[2025-02-08] MEDS: SODIUM CHLORIDE 0.9% IV 1,000 ML 150 ML IV CONT (16:06)
[2025-02-08 16:16] LABS: Add Urine Microscopic? YES; Appearance Urine Clear (Clear); Glucose Urine UA Negative (Negative); Leukocyte Esterase Ur 3+ LEU/UL (Negative); Nitrate Urine Positive (Negative); Non Pathogenic Casts 0-2; Specific Grav Ur 1.004 (1.001-1.035)
[2025-02-08] MEDS: SODIUM CHLORIDE 0.9% IV 1,000 ML 999 ML IV CONT (16:57)
[2025-02-08] MEDS: cefTRIAXone 1 GM in SODIUM CHLORIDE 0.9% IV 50 ML 100 ML IVPB (16:57)
[2025-02-08 19:29] LABS: Anion Gap 2 mmol/L (4-12); Blood Urea Nitrogen 6 mg/dL (7-17); Calcium 3.9 mg/dL (8.4-10.2); Carbon Dioxide 13 mmol/L (22-30); Chloride 113 mmol/L (98-107); Estimated CRCL calculation 144 ml/min; Estimated Glomerular Filt Rate > 60; Glucose 47 mg/dL (65-110); Potassium 2.8 mmol/L (3.4-5.0); Sodium 128 mmol/L (137-145)
--- NOTE | 2025-02-08 19:37 | PC.NURSE ---
LAB NOTIFIED THIS RN OF SEVERAL CRITICAL LABS ON THIS PT. CA OF 3.9, GLUCOSE 47, K 2.8, NA 128. EDP DR. PATINO REQUESTS THAT THESE LABS BE RE-DRAWN. [facility] SAID THAT THEY ALREADY RELEASED THEM. EDP TO ENTER SECOND SET OF LABS.
--- NOTE | 2025-02-08 19:39 | PC.NURSE ---
Telephone update to Martina Rodney-daughter
[2025-02-08 20:33] LABS: Anion Gap 1 mmol/L (4-12); Blood Urea Nitrogen 9 mg/dL (7-17); Calcium 6.2 mg/dL (8.4-10.2); Carbon Dioxide 22 mmol/L (22-30); Chloride 98 mmol/L (98-107); Estimated CRCL calculation 93 ml/min; Estimated Glomerular Filt Rate > 60; Glucose 72 mg/dL (65-110); Potassium 4.3 mmol/L (3.4-5.0); Sodium 121 mmol/L (137-145)
[2025-02-08] MEDS: CALCIUM GLUC 2,000 MG/NS 100ML 2,000 MG/100 ML BAG 100 MG IVPB (22:29)
--- NOTE | 2025-02-08 23:22 | ADMGEN ---
This patient, Celestina Ewing, was admitted to IMU Room 206-01 at 2250. Patient/family oriented to hospital policies and general routines including ID bracelet, bed and alarms, visiting hours, pain management, procedures, bathroom and other care routines, personal items, smoking policy, room service/diet, and visiting hours. Information on how to activate the Rapid Response Team has been discussed. Patient/Family are encouraged to report perceived risks to care and to ask questions if they do not understand what they are told or what they should do.
[2025-02-09] VITALS (17 sets, daily range): BP systolic 135–190; BP diastolic 32–83; PULSE 38–79; RESP 15–20; TEMP 36.4–37.1; O2SAT 96–100
[2025-02-09 00:26] LABS: Anion Gap 7 mmol/L (4-12); Blood Urea Nitrogen 10 mg/dL (7-17); Calcium 9.0 mg/dL (8.4-10.2); Carbon Dioxide 24 mmol/L (22-30); Chloride 86 mmol/L (98-107); Estimated CRCL calculation 69 ml/min; Estimated Glomerular Filt Rate > 60; Glucose 86 mg/dL (65-110); Magnesium 1.5 mg/dL (1.6-2.3); Potassium 5.3 mmol/L (3.4-5.0); Sodium 117 mmol/L (137-145)
[2025-02-09] MEDS: MAGNESIUM SULF 1 GM/D5W 100 ML 1 GM/100 ML BAG IVPB (01:18)
[2025-02-09 02:39] LABS: Hematocrit 30.7 % (37.0-47.0); Hemoglobin 10.1 g/dL (12.0-15.0); Immature Granulocyte Percent A 0.4 % (0-0.5); Lymphocytes Absolute Auto 1.28 K/mm3 (0.9-3.2); Mean Corpuscular HGB Conc 32.9 g/dl (32-36); Mean Corpuscular Hemoglobin 27.4 pg (26-34); Mean Corpuscular Volume 83.4 fl (80-100); Nucleated Red Blood Cells Absolute Auto 0.000 K/mm3 (0.0-0.012); Nucleated Red Blood Cells Perc 0.0 % (0.0-0.2); Platelet Count Result 222 k/mm3 (150-375); Red Blood Count 3.68 M/mm3 (4.2-5.4); White Blood Count 7.8 K/mm3 (4.5-10.0)
[2025-02-09 02:58] LABS: Alanine Aminotransferase 11 U/L (6-35); Albumin Level 3.5 g/dL (3.5-5.1); Alkaline Phosphatase 98 U/L (38-126); Anion Gap 7 mmol/L (4-12); Aspartate Amino Transferase 18 U/L (14-36); Bilirubin,Total < 0.1 mg/dL (0.2-1.3); Blood Urea Nitrogen 9 mg/dL (7-17); Calcium 8.6 mg/dL (8.4-10.2); Carbon Dioxide 22 mmol/L (22-30); Chloride 89 mmol/L (98-107); Estimated CRCL calculation 79 ml/min; Estimated Glomerular Filt Rate > 60; Glucose 94 mg/dL (65-110); Magnesium 2.0 mg/dL (1.6-2.3); Potassium 5.2 mmol/L (3.4-5.0); Sodium 118 mmol/L (137-145); Total Protein 6.3 g/dL (6.3-8.2)
--- NOTE | 2025-02-09 06:26 | PC.NURSE ---
This RN gave update to Narcisa at [facility].
[2025-02-09 06:37] LABS: Alanine Aminotransferase 12 U/L (6-35); Albumin Level 3.7 g/dL (3.5-5.1); Alkaline Phosphatase 98 U/L (38-126); Anion Gap 6 mmol/L (4-12); Aspartate Amino Transferase 20 U/L (14-36); Bilirubin,Total 0.2 mg/dL (0.2-1.3); Blood Urea Nitrogen 9 mg/dL (7-17); Calcium 8.7 mg/dL (8.4-10.2); Carbon Dioxide 26 mmol/L (22-30); Chloride 88 mmol/L (98-107); Estimated CRCL calculation 76 ml/min; Estimated Glomerular Filt Rate > 60; Glucose 80 mg/dL (65-110); Potassium 5.5 mmol/L (3.4-5.0); Sodium 120 mmol/L (137-145); Total Protein 6.6 g/dL (6.3-8.2)
[2025-02-09] MEDS: SODIUM POLYSTYRENE SULFONONATE 15 GM/60 ML BTL 30 GM PO (08:30)
[2025-02-09] MEDS: INSULIN HUMAN REGULAR (*BKC) 100 UNITS/ML 10 UNITS IV PUSH (08:31)
[2025-02-09] MEDS: DEXTROSE 50% 25 GM/50 ML SYRINGE IV PUSH (08:31)
[2025-02-09] MEDS: guaiFENesin 12 HR 600 MG TABCR 1200 MG PO ×2 (10:58→20:59)
[2025-02-09] MEDS: clonazePAM (*CRX) 0.5 MG TABLET PO ×2 (10:58→21:02)
[2025-02-09] MEDS: METOPROLOL SUCCINATE EXT REL 100 MG TABCR 300 MG PO (10:58)
[2025-02-09] MEDS: FLUTICASONE PROPIONATE 0.05% NA SPR 16 GM BTL (*BKC) 1 SPRAY NASAL (10:59)
[2025-02-09 11:03] LABS: Blood Urea Nitrogen 8 mg/dL (7-17); Calcium 8.8 mg/dL (8.4-10.2); Carbon Dioxide 25 mmol/L (22-30); Estimated CRCL calculation 77 ml/min; Estimated Glomerular Filt Rate > 60; Glucose 99 mg/dL (65-110)
--- NOTE | 2025-02-09 11:03 | P.CONNP_ITS ---
Assessment and Plan Assessment and plan (1) Hyponatremia: Code(s): E87.1 - Hypo-osmolality and hyponatremia Status: Acute Assessment and Plan: the patient has chronic hyponatremia. This is likely due to multiple issues and occluding pulmonary disease, proton pump inhibitor, poor osmolar intake with more generous fluid intake and in the past narcotics and a new development with the multiple cerebellar strokes.. Her baseline sodium seems to run in the high 120s and the low 130s. This admission she had a sodium of 113. This suddenly eric to 128 without much of an intervention. I do not think that this is accurate. Either the 113 was falsely low, (may be drawn above an IV?) Or the 128 was wrong. At this point it is difficult to know how fast to correct the sodium. House say at this point will try to keep the sodium level at around 120. until this afternoon and then we can start improving the sodium level. This would probably be the safest weight ago to prevent over-correction related complications in case the 113 was real. Will repeat a sodium level now and have him call me the results (2) AMS (altered mental status): Code(s): R41.82 - Altered mental status, unspecified Status: Acute Assessment and Plan: This seems at baseline right now (3) Obstructive sleep apnea: Code(s): G47.33 - Obstructive sleep apnea (adult) (pediatric) Status: Acute Assessment and Plan: the patient does not tolerate a CPAP mask (4) HTN (hypertension): Qualifiers: Hypertension type: essential hypertension Qualified Code(s): I10 - Essential (primary) hypertension Code(s): I10 - Essential (primary) hypertension Status: Chronic Assessment and Plan: her blood pressure is high. She is on amlodipine, irbesartan, and spironolactone Potassium level was borderline high on admission. Will stop the spironolactone. Will start hydralazine as this can help each keep the heart rate up. (5) HLD (hyperlipidemia): Qualifiers: Hyperlipidemia type: unspecified Qualified Code(s): E78.5 - Hyperlipidemia, unspecified Code(s): E78.5 - Hyperlipidemia, unspecified Status: Chronic Assessment and Plan: the patient is on atorvastatin (6) CVA (cerebral vascular accident): Code(s): I63.9 - Cerebral infarction, unspecified Status: Acute Assessment and Plan: neurology is seeing the patient History of Present Illness Reason for Consult Consult date: 02/09/25 Chief Complaint Chief complaint: Hyponatremia, UTI, generalized weakness, History of Present Illness Narrative: Celestina is a very pleasant 74-year-old lady who has a history of chronic hyponatremia, atrial fibrillation, chronic anticoagulation, history of a stroke, kidney stones, hyponatremia, failure to thrive, anemia, epilepsy, chronic respiratory failure on home oxygen, bipolar, hyperlipidemia, hypertension, sleep apnea but does not use a CPAP machine, anxiety, depression, gastroparesis. The patient came in the hospital for weakness and low blood pressure. She was seen in the ER and evaluated. Her blood pressure was high and her pulse was low. She was given a little atropine. Her sodium level was low at only 113, so she was given normal saline. Her next sodium level was 128 and had multiple repeat such that the sodium was 121 then 117 then 118 and finally 120 at 6:00 a.m. during that time she was given normal saline but no hypertonic saline. I do not see that she was given D5W at any time, although she was given a couple of amps of D50 which should not make much of a difference to the sodium. Her intake and output was positive until midnight and has been negative since then. Overall looks like her sodium level was 113 when she was admitted and is now 120. Last admission, the patient came in on hydrochlorothiazide. This was discontinued. The patient was on a fluid restriction and her sodium level eric from 121-130 with that alone. The patient was supposed to be on a fluid restriction at the correction but the patient herself says that she was not restricting her fluid. Review of Systems 2 Review of Systems: All systems reviewed & are unremarkable except as noted in HPI and below Constitutional: Constitutional: Reports no additional constitutional complaints Eyes: Eyes: Reports no additional eye complaints ENT: Reports system reviewed and no additional complaints, except as documented Cardiovascular: Cardiovascular: Reports no additional cardiovascular complaints Respiratory: Respiratory: Reports no additional respiratory complaints Gastrointestinal: Gastrointestinal: Reports no additional gastrointestinal complaints Genitourinary: Genitourinary: Reports no additional female genitourinary complaints Musculoskeletal: Musculoskeletal: Reports no additional musculoskeletal complaints Integumentary/Breasts: Skin/Breast: Reports system reviewed and no additional complaints, except as docu Neurologic: Reports system reviewed and no additional complaints, except as documented Psychiatric: Psychiatric: Reports no additional psychiatric complaints Endocrine: Endocrine: Reports no additional endocrine complaints [facility] Past Medical History Medical History History of atrial fibrillation Failure to thrive CVA (cerebral vascular accident) Chronic anticoagulation Kidney stone Chronic anemia Chronic respiratory failure with hypoxia, on home oxygen therapy Bipolar disorder Gastroesophageal reflux disease Hyperlipidemia Hypertension Obstructive sleep apnea intolerant to CPAP Left tibial fracture Chronic hyponatremia Shingles Anxiety Depression Gastroparesis Diverticulitis Asthma Epilepsy no longer on medication Seasonal allergies Surgical History Surgical History History of left above knee amputation History of right shoulder replacement History of cholecystectomy History of left knee replacement History of hysterectomy History of open reduction and internal fixation (ORIF) procedure Left tibia and right ankle. History of appendectomy History of tonsillectomy Family History Family History Mother Suicide Depression Heart disease Hypertension Heart failure Sibling Suicide Father Diabetes mellitus Emphysema lung Social History Social History Social History: Surrogate medical decision maker: Martina Rodney, daughter. Code status: Full code. Smoking status: Never smoker Second hand tobacco smoke exposure: No Alcohol intake: never Substance use: never Substance use type: does not use Do You Feel Safe in your Home?: Yes Lack of Transportation: No Lack of Food: Never True Current Housing: I Have Housing Concerned About Future Housing: No Difficulty Paying Gas/Electric Bills: No Difficulty Paying for Meds: No Currently Unemployed: No Education: High School Diploma/GED Difficulty w/ Childcare or Family Care: No Living arrangements: [facility] Occupation/Education: retired Spiritual care concerns: No Agree to blood products: No Meds Home Medications and Allergies Home Medications ?Medication ?Instructions ?Recorded ?Confirmed ?Type fluticasone propionate 50 1 spray intranasal DAILY 09/09/19 02/08/25 History mcg/actuation nasal spray,suspension docusate sodium 100 mg tablet 200 mg PO BID Constipation 05/31/20 02/08/25 History amlodipine 10 mg tablet 10 mg PO DAILY 04/23/24 02/08/25 History bisacodyl 5 mg tablet,delayed 10 mg PO HS PRN Constipation 04/23/24 02/08/25 History release (Dulcolax (bisacodyl)) guaifenesin 1,200 mg tablet, 1,200 mg PO BID 04/23/24 02/08/25 History extended release 12 hr (Mucinex) memantine 5 mg tablet 5 mg PO BID 04/23/24 02/08/25 History ondansetron HCl 4 mg tablet 4 mg PO TID 04/23/24 02/08/25 History polyethylene glycol 3350 17 17 g PO DAILY PRN Constipation 04/23/24 02/08/25 History gram/dose oral powder (Miralax) pregabalin 150 mg capsule (Lyrica) 150 mg PO BID #14 caps 05/04/24 02/08/25 Rx isosorbide mononitrate 30 mg 30 mg PO DAILY 08/06/24 02/08/25 History tablet,extended release 24 hr lidocaine 5 % topical patch 2 patch topical HS 08/06/24 02/08/25 History (Lidoderm) magnesium hydroxide 400 mg/5 mL 30 ml PO DAILY PRN constipation 08/06/24 02/08/25 History oral suspension (Gentle Laxative (magnesium hydroxide)) rivaroxaban 20 mg tablet (Xarelto) 20 mg PO DAILY@1700 #60 tabs 10/07/24 02/08/25 Rx irbesartan 150 mg tablet 300 mg (2 x 150 mg) PO QAM #30 tabs 10/12/24 02/08/25 Rx oxycodone-acetaminophen 5 mg-325 1 tablet PO Q8H PRN Pain Rated 10/12/24 02/08/25 Rx mg tablet 7-10 #10 tabs atorvastatin 10 mg tablet (Lipitor) 10 mg PO HS 01/18/25 02/08/25 History buspirone 10 mg tablet 10 mg PO TID 01/18/25 02/08/25 History clonazepam 0.5 mg tablet 0.5 mg PO Q12H 01/18/25 02/08/25 History famciclovir 250 mg tablet 250 mg PO Q12H 01/18/25 02/08/25 History hydralazine 10 mg tablet 50 mg PO TID 01/18/25 02/08/25 History lactulose 10 gram/15 mL oral 30 g PO BID 01/18/25 02/08/25 History solution (Enulose) magnesium citrate 300 ml PO DAILY PRN constipation 01/18/25 02/08/25 History polyvinyl alcohol-povidone 0.5 2 drp EACH EYE BID PRN dry eye(s) 01/18/25 02/08/25 History %-0.6 % eye drops (Artificial Tears (polyvinyl alcohol/povidone)) primidone 50 mg tablet See Rx Instructions .Route .COMPLEX 01/18/25 02/08/25 History sennosides 8.6 mg-docusate sodium 2 tab-cap PO BID 01/18/25 02/08/25 History 50 mg tablet (Senna Plus) spironolactone 25 mg tablet 25 mg PO DAILY 01/18/25 02/08/25 History venlafaxine 37.5 mg 37.5 mg PO DAILY 01/18/25 02/08/25 History capsule,extended release 24 hr zolpidem 5 mg tablet 5 mg PO HS 01/18/25 02/08/25 History clonidine 0.1 mg/24 hr weekly 1 patch transdermal WEEKLY #4 ea 01/21/25 02/08/25 Rx transdermal patch famotidine 10 mg tablet (Heartburn 10 mg PO DAILY 02/08/25 02/08/25 History Relief (famotidine)) metoprolol succinate 100 mg 300 mg PO QAM 02/08/25 02/08/25 History tablet,extended release 24 hr (Toprol XL) tizanidine 2 mg tablet 2 mg PO BID 02/08/25 02/08/25 History Allergies Allergy/AdvReac Type Severity Reaction Status Date / Time Fish Containing Products Allergy Severe Dyspnea / Verified 02/08/25 23:30 SOB Iodinated Contrast Media Allergy Intermediate HIVES, RED Verified 02/08/25 23:30 FACE iodine Allergy Unknown Unknown Verified 02/08/25 23:30 Barbiturates Allergy Unknown Verified 02/08/25 23:30 bupivacaine Allergy Unknown Verified 02/08/25 23:30 diazepam (From Valium) Allergy Unknown Verified 02/08/25 23:30 latex Allergy Unknown Verified 02/08/25 23:30 menthol Allergy Unknown Verified 02/08/25 23:30 Sulfa (Sulfonamide Allergy Unknown Verified 02/08/25 23:30 Antibiotics) thiopental (From Pentothal) Allergy Unknown Verified 02/08/25 23:30 wool Allergy Unknown Verified 02/08/25 23:30 Vital Signs Vital Signs - 24 hr 02/08/25 14:28 02/08/25 14:29 02/08/25 15:42 Temperature 95.7 F L 94.7 F L Pulse Rate 52 L 48 L 42 L Respiratory Rate 12 8 L Blood Pressure 129/50 L 146/58 H Pulse Oximetry 100 100 Oxygen Delivery Nasal Cannula Oxygen Flow Rate 2 Fraction of Inspired Oxygen 02/08/25 16:00 02/08/25 16:20 02/08/25 16:30 Temperature 94.7 F L 94.7 F L 94.5 F L Pulse Rate 40 L 43 L Respiratory Rate 10 L 8 L Blood Pressure 126/46 L 103/47 L Pulse Oximetry 100 100 Oxygen Delivery Oxygen Flow Rate Fraction of Inspired Oxygen 02/08/25 17:00 02/08/25 17:30 02/08/25 18:00 Temperature 94.8 F L 95.6 F L Pulse Rate 40 L 42 L 46 L Respiratory Rate 9 L 8 L 9 L Blood Pressure 98/49 L 91/42 L 109/43 L Pulse Oximetry 100 100 100 Oxygen Delivery Oxygen Flow Rate Fraction of Inspired Oxygen 02/08/25 18:30 02/08/25 19:00 02/08/25 19:30 Temperature 96.1 F L 96.4 F L 96.9 F L Pulse Rate 49 L 49 L 49 L Respiratory Rate 8 L 10 L 9 L Blood Pressure 150/62 H 140/56 L 129/55 L Pulse Oximetry 99 100 100 Oxygen Delivery Oxygen Flow Rate Fraction of Inspired Oxygen 02/08/25 20:26 02/08/25 20:26 02/08/25 21:00 Temperature 97.5 F L 97.5 F L 97.5 F L Pulse Rate 51 L 54 L Respiratory Rate 10 L 13 Blood Pressure 147/68 H 160/65 H Pulse Oximetry 99 98 Oxygen Delivery Oxygen Flow Rate Fraction of Inspired Oxygen 02/08/25 22:29 02/08/25 23:16 02/09/25 00:00 Temperature 97.5 F L 97.6 F Pulse Rate 55 L 64 Respiratory Rate 10 L 14 Blood Pressure 149/80 H Pulse Oximetry 99 95 100 Oxygen Delivery Nasal Cannula Oxygen Flow Rate 2 Fraction of Inspired Oxygen 02/09/25 00:00 02/09/25 00:00 02/09/25 02:00 Temperature Pulse Rate 60 58 L 49 L Respiratory Rate Blood Pressure 177/73 H Pulse Oximetry 100 Oxygen Delivery Oxygen Flow Rate Fraction of Inspired Oxygen 02/09/25 04:00 02/09/25 04:00 02/09/25 04:00 Temperature 97.8 F Pulse Rate 60 61 Respiratory Rate 18 Blood Pressure 169/49 H Pulse Oximetry 100 100 Oxygen Delivery Nasal Cannula Oxygen Flow Rate 2 Fraction of Inspired Oxygen 02/09/25 04:00 02/09/25 06:00 02/09/25 08:00 Temperature 97.7 F Pulse Rate 63 61 Respiratory Rate 15 Blood Pressure 163/50 H Pulse Oximetry 100 100 Oxygen Delivery Nasal Cannula Oxygen Flow Rate 2 Fraction of Inspired Oxygen 02/09/25 08:00 02/09/25 08:06 02/09/25 09:51 Temperature 97.6 F Pulse Rate 68 64 Respiratory Rate 20 Blood Pressure 175/53 H Pulse Oximetry 100 97 Oxygen Delivery Nasal Cannula Oxygen Flow Rate 2 Fraction of Inspired Oxygen 28 02/09/25 10:58 Temperature Pulse Rate 56 L Respiratory Rate Blood Pressure Pulse Oximetry Oxygen Delivery Oxygen Flow Rate Fraction of Inspired Oxygen Exam 2 Narrative: Exam Narrative: Well developed well-nourished female in no acute distress Skin is warm and dry without rash Head normocephalic atraumatic Eyes normal sclerae and conjunctivae Mouth normal lips teeth and gums Neck no nodes no thyromegaly no carotid bruits Axillae no nodes Back no CVA tenderness Lungs symmetric and clear to auscultation and percussion Heart regular rate and rhythm without rub or gallop Abdomen bowel sounds positive soft nontender, no HSM, masses, or bruits. Extremities no cyanosis, clubbing, or edema Pulses 2+ equal in radial arteries Psychological not anxious or depressed Neuro alert and oriented x3 motor 5/5 cranial nerves 2-12 intact reflexes 2+ and equal in the biceps and patellar tendons cerebellar normal rapid alternating movements Results Lab Results 02/09/25 02:21 02/09/25 10:26 Lab results: Most recent lab results ABG pH 7.322 (7.350-7.450) L 02/08/25 14:51 ABG pCO2 54.1 mmHg (35.0-45.0) H 02/08/25 14:51 ABG pO2 130.4 mmHg (80.0-100.0) H 02/08/25 14:51 ABG HCO3 27.4 mEq/l (22.0-26.0) H 02/08/25 14:51 ABG O2 Saturation 98.3 % (95.0-100.0) 02/08/25 14:51 Calcium 8.8 mg/dL (8.4-10.2) 02/09/25 10:26 Magnesium 2.0 mg/dL (1.6-2.3) 02/09/25 02:21
[2025-02-09] MEDS: FAMCICLOVIR 250 MG TABLET PO ×2 (11:08→20:58)
[2025-02-09 11:19] LABS: Anion Gap 9 mmol/L (4-12); Chloride 91 mmol/L (98-107); Potassium 4.4 mmol/L (3.4-5.0); Sodium 125 mmol/L (137-145)
[2025-02-09] MEDS: ONDANSETRON HCL ODT 4 MG TABLET PO ×2 (13:10→17:11)
[2025-02-09] MEDS: DESMOPRESSIN ACETATE 4 MCG/ML AMP 2 MCG SUB-Q (13:11)
[2025-02-09] MEDS: DEXTROSE 5% IN WATER 250 ML 300 ML IV CONT (13:16)
[2025-02-09] MEDS: PRIMIDONE 50 MG TABLET 200 MG BY MOUTH (17:10)
[2025-02-09] MEDS: cefTRIAXone 1 GM in SODIUM CHLORIDE 0.9% IV 50 ML 100 ML IVPB (17:11)
[2025-02-09] MEDS: TIZANIDINE HCL 2 MG TABLET PO (17:11)
[2025-02-09] MEDS: RIVAROXABAN 20 MG TABLET PO (17:11)
[2025-02-09] MEDS: DOCUSATE SODIUM 100 MG CAPSULE 200 MG PO (17:11)
[2025-02-09] MEDS: PREGABALIN (*CRX) 75 MG CAPSULE 150 MG PO (17:11)
[2025-02-09] MEDS: MEMANTINE 5 MG TABLET PO (17:11)
[2025-02-09 17:56] LABS: Anion Gap 8 mmol/L (4-12); Blood Urea Nitrogen 6 mg/dL (7-17); Calcium 8.5 mg/dL (8.4-10.2); Carbon Dioxide 27 mmol/L (22-30); Chloride 91 mmol/L (98-107); Estimated CRCL calculation 73 ml/min; Estimated Glomerular Filt Rate > 60; Glucose 102 mg/dL (65-110); Potassium 4.2 mmol/L (3.4-5.0); Sodium 126 mmol/L (137-145)
--- NOTE | 2025-02-09 18:26 | PM.IMHP ---
H&P: HPI History of Present Illness Date/Time: 02/09/25 18:26 Chief Complaint: Weakness Narrative: ER-HPI narrative: 74-year-old with a history of hypertension, hyperlipidemia, obstructive sleep apnea, bipolar disorder, was chronic respiratory failure on 2 L home oxygen,Afib on Xarelto was brought in from halfway with the complaints of lethargy, low pressure and heart rate. Patient was found to be hypertensive and bradycardic she was given IV fluids and 1 mg of atropine by EMS. Patient also complains of headache which has been ongoing for last several months. EMS also reports that she is unable to participate in physical therapy . Patient denies any recent falls. No history of any chest pain or shortness of breath. Denies any nausea, vomiting or abdominal pain. 74 y/o female presented with weakness and is found to have hyponatremia most likely cause of her lethargy, upon arrival patient sodium was 113 and it suddenly eric to 118 without any intervention, possible error in drawing or lab, however her baseline sodium is 130s, patient is seen by occupational therapist assistant occluding pulmonary disease, proton pump inhibitor, poor osmolar intake with more generous fluid intake and recent multiple cerebellar storkes, because of sudden rise in her sodium, plan is to monitor and trend her sodium, PMFSH Past Medical History Medical History History of atrial fibrillation Failure to thrive CVA (cerebral vascular accident) Chronic anticoagulation Kidney stone Chronic anemia Chronic respiratory failure with hypoxia, on home oxygen therapy Bipolar disorder Gastroesophageal reflux disease Hyperlipidemia Hypertension Obstructive sleep apnea intolerant to CPAP Left tibial fracture Chronic hyponatremia Shingles Anxiety Depression Gastroparesis Diverticulitis Asthma Epilepsy no longer on medication Seasonal allergies Surgical History Surgical History History of left above knee amputation History of right shoulder replacement History of cholecystectomy History of left knee replacement History of hysterectomy History of open reduction and internal fixation (ORIF) procedure Left tibia and right ankle. History of appendectomy History of tonsillectomy Family History Family History Mother Suicide Depression Heart disease Hypertension Heart failure Sibling Suicide Father Diabetes mellitus Emphysema lung Social History Social History Social History: Surrogate medical decision maker: Martina Rodney, daughter. Code status: Full code. Smoking status: Never smoker Second hand tobacco smoke exposure: No Alcohol intake: never Substance use: never Substance use type: does not use Do You Feel Safe in your Home?: Yes Lack of Transportation: No Lack of Food: Never True Current Housing: I Have Housing Concerned About Future Housing: No Difficulty Paying Gas/Electric Bills: No Difficulty Paying for Meds: No Currently Unemployed: No Education: High School Diploma/GED Difficulty w/ Childcare or Family Care: No Living arrangements: [facility] Occupation/Education: retired Spiritual care concerns: No Agree to blood products: No Meds Home Medications and Allergies Home Medications ?Medication ?Instructions ?Recorded ?Confirmed ?Type fluticasone propionate 50 1 spray intranasal DAILY 09/09/19 02/08/25 History mcg/actuation nasal spray,suspension docusate sodium 100 mg tablet 200 mg PO BID Constipation 05/31/20 02/08/25 History amlodipine 10 mg tablet 10 mg PO DAILY 04/23/24 02/08/25 History bisacodyl 5 mg tablet,delayed 10 mg PO HS PRN Constipation 04/23/24 02/08/25 History release (Dulcolax (bisacodyl)) guaifenesin 1,200 mg tablet, 1,200 mg PO BID 04/23/24 02/08/25 History extended release 12 hr (Mucinex) memantine 5 mg tablet 5 mg PO BID 04/23/24 02/08/25 History ondansetron HCl 4 mg tablet 4 mg PO TID 04/23/24 02/08/25 History polyethylene glycol 3350 17 17 g PO DAILY PRN Constipation 04/23/24 02/08/25 History gram/dose oral powder (Miralax) pregabalin 150 mg capsule (Lyrica) 150 mg PO BID #14 caps 05/04/24 02/08/25 Rx isosorbide mononitrate 30 mg 30 mg PO DAILY 08/06/24 02/08/25 History tablet,extended release 24 hr lidocaine 5 % topical patch 2 patch topical HS 08/06/24 02/08/25 History (Lidoderm) magnesium hydroxide 400 mg/5 mL 30 ml PO DAILY PRN constipation 08/06/24 02/08/25 History oral suspension (Gentle Laxative (magnesium hydroxide)) rivaroxaban 20 mg tablet (Xarelto) 20 mg PO DAILY@1700 #60 tabs 10/07/24 02/08/25 Rx irbesartan 150 mg tablet 300 mg (2 x 150 mg) PO QAM #30 tabs 10/12/24 02/08/25 Rx oxycodone-acetaminophen 5 mg-325 1 tablet PO Q8H PRN Pain Rated 10/12/24 02/08/25 Rx mg tablet 7-10 #10 tabs atorvastatin 10 mg tablet (Lipitor) 10 mg PO HS 01/18/25 02/08/25 History buspirone 10 mg tablet 10 mg PO TID 01/18/25 02/08/25 History clonazepam 0.5 mg tablet 0.5 mg PO Q12H 01/18/25 02/08/25 History famciclovir 250 mg tablet 250 mg PO Q12H 01/18/25 02/08/25 History hydralazine 10 mg tablet 50 mg PO TID 01/18/25 02/08/25 History lactulose 10 gram/15 mL oral 30 g PO BID 01/18/25 02/08/25 History solution (Enulose) magnesium citrate 300 ml PO DAILY PRN constipation 01/18/25 02/08/25 History polyvinyl alcohol-povidone 0.5 2 drp EACH EYE BID PRN dry eye(s) 01/18/25 02/08/25 History %-0.6 % eye drops (Artificial Tears (polyvinyl alcohol/povidone)) primidone 50 mg tablet See Rx Instructions .Route .COMPLEX 01/18/25 02/08/25 History sennosides 8.6 mg-docusate sodium 2 tab-cap PO BID 01/18/25 02/08/25 History 50 mg tablet (Senna Plus) spironolactone 25 mg tablet 25 mg PO DAILY 01/18/25 02/08/25 History venlafaxine 37.5 mg 37.5 mg PO DAILY 01/18/25 02/08/25 History capsule,extended release 24 hr zolpidem 5 mg tablet 5 mg PO HS 01/18/25 02/08/25 History clonidine 0.1 mg/24 hr weekly 1 patch transdermal WEEKLY #4 ea 01/21/25 02/08/25 Rx transdermal patch famotidine 10 mg tablet (Heartburn 10 mg PO DAILY 02/08/25 02/08/25 History Relief (famotidine)) metoprolol succinate 100 mg 300 mg PO QAM 02/08/25 02/08/25 History tablet,extended release 24 hr (Toprol XL) tizanidine 2 mg tablet 2 mg PO BID 02/08/25 02/08/25 History Allergies Allergy/AdvReac Type Severity Reaction Status Date / Time Fish Containing Products Allergy Severe Dyspnea / Verified 02/08/25 23:30 SOB Iodinated Contrast Media Allergy Intermediate HIVES, RED Verified 02/08/25 23:30 FACE iodine Allergy Unknown Unknown Verified 02/08/25 23:30 Barbiturates Allergy Unknown Verified 02/08/25 23:30 bupivacaine Allergy Unknown Verified 02/08/25 23:30 diazepam (From Valium) Allergy Unknown Verified 02/08/25 23:30 latex Allergy Unknown Verified 02/08/25 23:30 menthol Allergy Unknown Verified 02/08/25 23:30 Sulfa (Sulfonamide Allergy Unknown Verified 02/08/25 23:30 Antibiotics) thiopental (From Pentothal) Allergy Unknown Verified 02/08/25 23:30 wool Allergy Unknown Verified 02/08/25 23:30 Vital Signs Vital Signs - 24 hr 02/08/25 18:30 02/08/25 19:00 02/08/25 19:30 Temperature 35.6 C L 35.8 C L 36.1 C L Pulse Rate 49 L 49 L 49 L Respiratory Rate 8 L 10 L 9 L Blood Pressure 150/62 H 140/56 L 129/55 L Pulse Oximetry 99 100 100 Oxygen Delivery Oxygen Flow Rate Fraction of Inspired Oxygen 02/08/25 20:26 02/08/25 20:26 02/08/25 21:00 Temperature 36.4 C L 36.4 C L 36.4 C L Pulse Rate 51 L 54 L Respiratory Rate 10 L 13 Blood Pressure 147/68 H 160/65 H Pulse Oximetry 99 98 Oxygen Delivery Oxygen Flow Rate Fraction of Inspired Oxygen 02/08/25 22:29 02/08/25 23:16 02/09/25 00:00 Temperature 36.4 C L 36.4 C Pulse Rate 55 L 64 Respiratory Rate 10 L 14 Blood Pressure 149/80 H Pulse Oximetry 99 95 100 Oxygen Delivery Nasal Cannula Oxygen Flow Rate 2 Fraction of Inspired Oxygen 02/09/25 00:00 02/09/25 00:00 02/09/25 02:00 Temperature Pulse Rate 60 58 L 49 L Respiratory Rate Blood Pressure 177/73 H Pulse Oximetry 100 Oxygen Delivery Oxygen Flow Rate Fraction of Inspired Oxygen 02/09/25 04:00 02/09/25 04:00 02/09/25 04:00 Temperature 36.6 C Pulse Rate 60 61 Respiratory Rate 18 Blood Pressure 169/49 H Pulse Oximetry 100 100 Oxygen Delivery Nasal Cannula Oxygen Flow Rate 2 Fraction of Inspired Oxygen 02/09/25 04:00 02/09/25 06:00 02/09/25 08:00 Temperature 36.5 C Pulse Rate 63 61 Respiratory Rate 15 Blood Pressure 163/50 H Pulse Oximetry 100 100 Oxygen Delivery Nasal Cannula Oxygen Flow Rate 2 Fraction of Inspired Oxygen 02/09/25 08:00 02/09/25 08:06 02/09/25 09:51 Temperature 36.4 C Pulse Rate 68 64 Respiratory Rate 20 Blood Pressure 175/53 H Pulse Oximetry 100 97 Oxygen Delivery Nasal Cannula Oxygen Flow Rate 2 Fraction of Inspired Oxygen 28 02/09/25 10:00 02/09/25 10:58 02/09/25 12:08 Temperature 36.5 C Pulse Rate 67 56 L 57 L Respiratory Rate 20 Blood Pressure 185/66 H Pulse Oximetry 96 Oxygen Delivery Oxygen Flow Rate Fraction of Inspired Oxygen 02/09/25 15:40 02/09/25 16:00 Temperature 37.1 C Pulse Rate 79 67 Respiratory Rate 20 Blood Pressure 190/83 H Pulse Oximetry 96 Oxygen Delivery Oxygen Flow Rate Fraction of Inspired Oxygen Exam Narrative: Morbidly obese Patient is comfortable, NAD HEENT: eyes are clear and none icteric LUNGS:CTA HEART: RR S1S2 ABD: BS+, Soft and nontender Lower extremities: no edema SKIN: nonjaundiced Neuro: grossly intact. H&P: Results Labs Labs: Short CBC 02/09/25 Range/Units 02:21 WBC 7.8 (4.5-10.0) K/mm3 Hgb 10.1 L (12.0-15.0) g/dL Hct 30.7 L (37.0-47.0) % Plt Count 222 (150-375) k/mm3 BMP 02/08/25 02/08/25 02/08/25 18:46 19:59 23:35 Sodium 128 L 121 L 117 L* Potassium 2.8 L* 4.3 5.3 H Chloride 113 H 98 86 L Carbon Dioxide 13 L 22 24 BUN 6 L D 9 10 Creatinine 0.28 L 0.47 L 0.66 L Glucose 47 L* 72 86 Calcium 3.9 L* 6.2 L 9.0 02/09/25 02/09/25 02/09/25 02:21 05:58 10:26 Sodium 118 L* 120 L 125 L Potassium 5.2 H 5.5 H 4.4 Chloride 89 L 88 L 91 L Carbon Dioxide 22 26 25 BUN 9 9 8 Creatinine 0.57 L 0.60 L 0.59 L Glucose 94 80 99 Calcium 8.6 8.7 8.8 02/09/25 17:25 Sodium 126 L Potassium 4.2 Chloride 91 L Carbon Dioxide 27 BUN 6 L Creatinine 0.62 L Glucose 102 Calcium 8.5 Liver Function 02/09/25 02/09/25 Range/Units 02:21 05:58 Total Bilirubin < 0.1 L 0.2 (0.2-1.3) mg/dL AST 18 20 (14-36) U/L ALT 11 12 (6-35) U/L Alkaline Phosphatase 98 98 (38-126) U/L Albumin 3.5 3.7 (3.5-5.1) g/dL Assessment and Plan Assessment and plan (1) Acute hyponatremia: Code(s): E87.1 - Hypo-osmolality and hyponatremia Status: Acute (2) Atrial fibrillation with RVR: Code(s): I48.91 - Unspecified atrial fibrillation Status: Acute (3) Diabetes: Code(s): E11.9 - Type 2 diabetes mellitus without complications Status: Acute (4) CVA (cerebral vascular accident): Code(s): I63.9 - Cerebral infarction, unspecified Status: Acute (5) Acute UTI: Code(s): N39.0 - Urinary tract infection, site not specified Status: Acute Plan 74 y/o female presented with weakness and is found to have hyponatremia most likely cause of her lethargy, upon arrival patient sodium was 113 and it suddenly eric to 118 without any intervention, possible error in drawing or lab, however her baseline sodium is 130s, patient is seen by occupational therapist assistant occluding pulmonary disease, proton pump inhibitor, poor osmolar intake with more generous fluid intake and recent multiple cerebellar storkes, because of sudden rise in her sodium, plan is to monitor and trend her sodium,
[2025-02-09] MEDS: ATORVASTATIN 10 MG TABLET PO (20:58)
[2025-02-09] MEDS: LIDOCAINE 5% PATCH 2 PATCH TOPICAL (21:01)
[2025-02-09] MEDS: ZOLPIDEM TARTRATE (*CRX) 5 MG TABLET PO (21:03)
[2025-02-09] MEDS: oxyCODONE/ACETAMINOPHEN (*CRX) 5-325 MG TABLET 1 TABLET PO (21:11)
[2025-02-10] VITALS (10 sets, daily range): BP systolic 153–167; BP diastolic 44–58; PULSE 55–79; RESP 16–20; TEMP 36.2–36.8; O2SAT 94–100
[2025-02-10 04:28] LABS: Hematocrit 30.8 % (37.0-47.0); Hemoglobin 9.9 g/dL (12.0-15.0); Mean Corpuscular HGB Conc 32.1 g/dl (32-36); Mean Corpuscular Hemoglobin 27.6 pg (26-34); Mean Corpuscular Volume 85.8 fl (80-100); Platelet Count Result 195 k/mm3 (150-375); Red Blood Count 3.59 M/mm3 (4.2-5.4); White Blood Count 5.3 K/mm3 (4.5-10.0)
[2025-02-10 04:58] LABS: Albumin Level 3.6 g/dL (3.5-5.1); Anion Gap 6 mmol/L (4-12); Blood Urea Nitrogen 5 mg/dL (7-17); Calcium 8.6 mg/dL (8.4-10.2); Carbon Dioxide 28 mmol/L (22-30); Chloride 92 mmol/L (98-107); Estimated CRCL calculation 75 ml/min; Estimated Glomerular Filt Rate > 60; Glucose 83 mg/dL (65-110); Magnesium 1.7 mg/dL (1.6-2.3); Potassium 3.7 mmol/L (3.4-5.0); Sodium 126 mmol/L (137-145)
[2025-02-10] MEDS: FLUTICASONE PROPIONATE 0.05% NA SPR 16 GM BTL (*BKC) 1 SPRAY NASAL (08:14)
[2025-02-10] MEDS: oxyCODONE/ACETAMINOPHEN (*CRX) 5-325 MG TABLET 1 TABLET PO ×2 (08:16→17:38)
[2025-02-10] MEDS: clonazePAM (*CRX) 0.5 MG TABLET PO ×2 (08:17→21:45)
[2025-02-10] MEDS: FAMOTIDINE 10 MG TABLET PO (08:17)
[2025-02-10] MEDS: PREGABALIN (*CRX) 75 MG CAPSULE 150 MG PO ×2 (08:17→17:33)
[2025-02-10] MEDS: guaiFENesin 12 HR 600 MG TABCR 1200 MG PO ×2 (08:17→21:44)
[2025-02-10] MEDS: FAMCICLOVIR 250 MG TABLET PO ×2 (08:17→21:44)
[2025-02-10] MEDS: IRBESARTAN 150 MG TABLET 300 MG PO (08:17)
[2025-02-10] MEDS: PRIMIDONE 50 MG TABLET 200 MG BY MOUTH ×2 (08:17→17:44)
[2025-02-10] MEDS: ISOSORBIDE MONONITRATE 30 MG TAB.ER.24H PO (08:17)
[2025-02-10] MEDS: ONDANSETRON HCL ODT 4 MG TABLET PO ×3 (08:17→17:33)
[2025-02-10] MEDS: TIZANIDINE HCL 2 MG TABLET PO ×2 (08:17→17:33)
[2025-02-10] MEDS: SPIRONOLACTONE 25 MG TABLET PO (08:18)
[2025-02-10] MEDS: VENLAFAXINE HCL XR 37.5 MG CAP PO (08:18)
[2025-02-10] MEDS: MEMANTINE 5 MG TABLET PO ×2 (08:18→17:33)
[2025-02-10] MEDS: DOCUSATE SODIUM 100 MG CAPSULE 200 MG PO ×2 (08:18→17:33)
[2025-02-10] MEDS: DEXTROSE 5% 1,000 ML 1,000 ML 270 ML IV CONT (10:16)
--- NOTE | 2025-02-10 11:30 | PM.PNNEP ---
Progress Note: A&P Assessment and Plan (1) Hyponatremia: Code(s): E87.1 - Hypo-osmolality and hyponatremia Status: Acute Assessment and Plan: the patient has chronic hyponatremia. This is likely due to multiple issues and occluding pulmonary disease, proton pump inhibitor, poor osmolar intake with more generous fluid intake and in the past narcotics and a new development with the multiple cerebellar strokes.. Her baseline sodium seems to run in the high 120s and the low 130s. This admission she had a sodium of 113. This suddenly eric to 128 without much of an intervention. I do not think that this is accurate. Either the 113 was falsely low, (may be drawn above an IV?) Or the 128 was wrong. At this point it is difficult to know how fast to correct the sodium. her sodium did come down a bit yesterday with the DDAVP plus free water but not as low as I would like to of seen. Overall the sodium went from 113 to 126 over 2 days which is a pretty good rate however that 1st 24hours was still a little bit high so I like to see come down a little more. So I will give D5W 1 more time. Will repeat a sodium level this afternoon after the D5W is in and nurse will call me the result (2) AMS (altered mental status): Code(s): R41.82 - Altered mental status, unspecified Status: Acute Assessment and Plan: This seems at baseline right now (3) Obstructive sleep apnea: Code(s): G47.33 - Obstructive sleep apnea (adult) (pediatric) Status: Acute Assessment and Plan: the patient does not tolerate a CPAP mask (4) HTN (hypertension): Qualifiers: Hypertension type: essential hypertension Qualified Code(s): I10 - Essential (primary) hypertension Code(s): I10 - Essential (primary) hypertension Status: Chronic Assessment and Plan: her blood pressure is high. She is on amlodipine, irbesartan, clonidine patch and hydralazine off the spironolactone just yesterday started on hydralazine as this can help each keep the heart rate up. (5) HLD (hyperlipidemia): Qualifiers: Hyperlipidemia type: unspecified Qualified Code(s): E78.5 - Hyperlipidemia, unspecified Code(s): E78.5 - Hyperlipidemia, unspecified Status: Chronic Assessment and Plan: the patient is on atorvastatin (6) CVA (cerebral vascular accident): Code(s): I63.9 - Cerebral infarction, unspecified Status: Acute Assessment and Plan: neurology is seeing the patient Subjective Date/time seen: 02/10/25 11:30 Interval history: patient is alert. Just waking up from slumber. No chest pain or shortness of doing well with her fluid restriction Review of Systems Cardiovascular: Cardiovascular: Reports no additional cardiovascular complaints Respiratory: Respiratory: Reports no additional respiratory complaints Gastrointestinal: Gastrointestinal: Reports no additional gastrointestinal complaints Genitourinary: Genitourinary: Reports no additional female genitourinary complaints Exam Narrative: WDWN in NAD skin no rash head ncat lungs clear cor reg no rub abd BS+ nontender and soft ext no edema. Objective Data Vital Signs Vital Signs: Vital Signs - 24 hr 02/09/25 12:08 02/09/25 15:40 02/09/25 16:00 Temperature 97.7 F 98.7 F Pulse Rate 57 L 79 67 Respiratory Rate 20 20 Blood Pressure 185/66 H 190/83 H Pulse Oximetry 96 96 Oxygen Delivery Oxygen Flow Rate 02/09/25 19:25 02/09/25 19:37 02/09/25 20:00 Temperature 98.8 F Pulse Rate 43 L 38 L 68 Respiratory Rate 18 Blood Pressure 167/61 H Pulse Oximetry 100 Oxygen Delivery Oxygen Flow Rate 02/09/25 20:00 02/09/25 20:35 02/09/25 23:31 Temperature 98.4 F Pulse Rate 70 68 60 Respiratory Rate 18 18 Blood Pressure 135/32 L Pulse Oximetry 100 100 Oxygen Delivery Nasal Cannula Oxygen Flow Rate 2 02/10/25 00:00 02/10/25 03:10 02/10/25 04:00 Temperature 97.8 F Pulse Rate 56 L 62 65 Respiratory Rate 18 Blood Pressure 164/58 H Pulse Oximetry 94 Oxygen Delivery Oxygen Flow Rate 02/10/25 07:41 02/10/25 08:00 02/10/25 08:00 Temperature 98.0 F Pulse Rate 69 79 Respiratory Rate 20 Blood Pressure 153/55 H Pulse Oximetry 99 99 Oxygen Delivery Nasal Cannula Oxygen Flow Rate 2 02/10/25 11:18 Temperature Pulse Rate Respiratory Rate Blood Pressure Pulse Oximetry 99 Oxygen Delivery Nasal Cannula Oxygen Flow Rate 2 Intake/Output Intake/Output: Intake & Output 02/07/25 02/08/25 02/09/25 02/10/25 23:59 23:59 23:59 23:59 Intake Total 2150 840 540 Output Total 500 3500 300 Balance 1650 -1400 240 Meds/Results Medications: Active Medications Generic Name Dose Route Start Last Admin Trade Name Freq PRN Reason Stop Dose Admin Amlodipine Besylate 10 mg 02/10/25 09:00 02/10/25 08:17 Amlodipine Besylate 10 Mg Tablet PO 10 mg DAILY KELIN Administration Artificial Tears 2 drop 02/09/25 09:59 Artificial Tears Ophth Soln 15 Ml Bottle EACH EYE BID PRN dry eye(s) Atorvastatin Calcium 10 mg 02/09/25 21:00 02/09/25 20:58 Atorvastatin 10 Mg Tablet PO 10 mg HS KELIN Administration Bisacodyl 10 mg 02/09/25 09:36 Bisacodyl 5 Mg Tablet Ec PO HS PRN Constipation Buspirone HCl 10 mg 02/09/25 13:00 02/10/25 08:17 Buspirone Hcl 10 Mg Tablet PO 10 mg TID KELIN Administration Clonazepam 0.5 mg 02/09/25 09:40 02/10/25 08:17 Clonazepam (*Crx) 0.5 Mg Tablet PO 0.5 mg Q12HR KELIN Administration Clonidine HCl 1 patch 02/16/25 09:00 Clonidine 0.1 Mg/24 Hr Patch TRANSDERM WEEKLY KELIN Docusate Sodium 200 mg 02/09/25 17:00 02/10/25 08:18 Docusate Sodium 100 Mg Capsule PO 200 mg BID KELIN Administration Famciclovir 250 mg 02/09/25 10:15 02/10/25 08:17 Famciclovir 250 Mg Tablet PO 250 mg Q12HR KELIN Administration Famotidine 10 mg 02/10/25 09:00 02/10/25 08:17 Famotidine 10 Mg Tablet PO 10 mg DAILY KELIN Administration Fluticasone Propionate 1 spray 02/09/25 09:00 02/10/25 08:14 Fluticasone Propionate 0.05% Na Spr 16 Gm Btl (*Bkc) NASAL 1 spray DAILY KELIN Administration Glucose 15 gm 02/08/25 21:08 Glucose Oral Gel 15 Gm Of Glucse In 37.5 Gm Tube PO PRN PRN Hypoglycemia Protocol Guaifenesin 1,200 mg 02/09/25 09:50 02/10/25 08:17 Guaifenesin 12 Hr 600 Mg Tabcr PO 1,200 mg Q12HR KELIN Administration Hydralazine HCl 50 mg 02/09/25 14:00 02/10/25 05:29 Hydralazine Hcl 50 Mg Tablet PO 50 mg Q8HR KELIN Administration Hydralazine HCl 25 mg 02/09/25 14:00 02/10/25 05:29 Hydralazine Hcl 25 Mg Tablet PO 25 mg Q8HR KELIN Administration Ceftriaxone Sodium 1 gm/ 50 mls @ 100 mls/hr 02/09/25 17:00 02/09/25 19:20 Sodium Chloride IVPB Infused Q24H KELIN Infusion Dextrose 1,000 mls @ 100 mls/hr 02/08/25 21:08 Dextrose 5% 1,000 Ml IVPB PRN PRN Hypoglycemia Protocol Irbesartan 300 mg 02/10/25 09:00 02/10/25 08:17 Irbesartan 150 Mg Tablet PO 300 mg QAM KELIN Administration Isosorbide Mononitrate 30 mg 02/10/25 09:00 02/10/25 08:17 Isosorbide Mononitrate 30 Mg Tab.Er.24h PO 30 mg DAILY KELIN Administration Lactulose 30 gm 02/09/25 17:00 02/10/25 08:18 Lactulose 20 Gm/30 Ml Udc PO Not Given BID KELIN Lidocaine 2 patch 02/09/25 21:00 02/09/25 21:01 Lidocaine 5% Patch TOPICAL 2 patch HS KELIN Administration Magnesium Citrate 300 ml 02/09/25 09:36 Magnesium Citrate 300 Ml Btl PO DAILY PRN constipation Magnesium Hydroxide 30 ml 02/09/25 09:36 Magnesium Hydroxide Susp 30 Ml Udc PO DAILY PRN constipation Memantine 5 mg 02/09/25 17:00 02/10/25 08:18 Memantine 5 Mg Tablet PO 5 mg BID KELIN Administration Metoprolol Succinate 300 mg 02/09/25 09:00 02/09/25 10:58 Metoprolol Succinate Ext Rel 100 Mg Tabcr PO 300 mg QAM KELIN Administration Miscellaneous Information 1 each 02/09/25 00:01 Clonidine 0.1 Mg/24 Hr Patch Need Day Of Week Due XX 03/11/25 00:00 CLARIFY KELIN Miscellaneous Information 1 each 02/10/25 00:01 Multiple Meds Prn For Constipation. Please Clarify And Include Parameters XX 03/12/25 00:00 CLARIFY KELIN Ondansetron HCl 4 mg 02/08/25 21:05 Ondansetron Inj 4 Mg/2 Ml Vial IV PUSH Q4H PRN Nausea Ondansetron HCl 4 mg 02/09/25 13:00 02/10/25 08:17 Ondansetron Hcl Odt 4 Mg Tablet PO 4 mg TID KELIN Administration Oxycodone/Acetaminophen 1 tablet 02/09/25 09:36 02/10/25 08:16 Oxycodone/Acetaminophen (*Crx) 5-325 Mg Tablet PO 1 tablet Q8H PRN Administration Pain Rated 7-10 Polyethylene Glycol 17 gm 02/09/25 09:36 Polyethylene Glycol 3350 17 Gm Powd.Pack PO DAILY PRN Constipation Pregabalin 150 mg 02/09/25 17:00 02/10/25 08:17 Pregabalin (*Crx) 75 Mg Capsule PO 150 mg BID KELIN Administration Primidone 200 mg 02/09/25 17:00 02/10/25 08:17 Primidone 50 Mg Tablet BY MOUTH 200 mg BID KELIN Administration Rivaroxaban 20 mg 02/09/25 17:00 02/09/25 17:11 Rivaroxaban 20 Mg Tablet PO 20 mg DAILY@1700 KELIN Administration Spironolactone 25 mg 02/10/25 09:00 02/10/25 08:18 Spironolactone 25 Mg Tablet PO 25 mg DAILY KELIN Administration Tizanidine HCl 2 mg 02/09/25 17:00 02/10/25 08:17 Tizanidine Hcl 2 Mg Tablet PO 2 mg BID KELIN Administration Venlafaxine HCl 37.5 mg 02/10/25 09:00 02/10/25 08:18 Venlafaxine Hcl Xr 37.5 Mg Cap PO 37.5 mg DAILY KELIN Administration Zolpidem Tartrate 5 mg 02/09/25 21:00 02/09/25 21:03 Zolpidem Tartrate (*Crx) 5 Mg Tablet PO 5 mg HS KELIN Administration Radiology Results: ITS Impressions Head CT 02/08/25 15:19 IMPRESSION: No acute intracranial process. Chest X-Ray 02/08/25 15:40 IMPRESSION: Left basilar atelectasis versus pneumonia Labs Labs: Laboratory Results - last 24 hr 02/09/25 02/09/25 02/09/25 15:21 17:25 19:51 WBC RBC Hgb Hct MCV MCH MCHC RDW Plt Count MPV Sodium 126 L Potassium 4.2 Chloride 91 L Carbon Dioxide 27 Anion Gap 8 BUN 6 L Creatinine 0.62 L Estim Creat Clear Calc 73 Estimated GFR > 60 Glucose 102 POC Capillary Glucose 114 H 88 Calcium 8.5 Phosphorus Magnesium Albumin 02/10/25 02/10/25 04:04 07:16 WBC 5.3 RBC 3.59 L Hgb 9.9 L Hct 30.8 L MCV 85.8 MCH 27.6 MCHC 32.1 RDW 15.5 H Plt Count 195 MPV 11.5 H Sodium 126 L Potassium 3.7 Chloride 92 L Carbon Dioxide 28 Anion Gap 6 BUN 5 L Creatinine 0.59 L Estim Creat Clear Calc 75 Estimated GFR > 60 Glucose 83 POC Capillary Glucose 86 Calcium 8.6 Phosphorus 2.9 Magnesium 1.7 Albumin 3.6
[2025-02-10 13:36] LABS: Sodium 121 mmol/L (137-145)
--- NOTE | 2025-02-10 15:14 | PCPTNOTE ---
Talked to patient and she reports that she is completely uriel dependent and rarely gets out of bed and into the WC. Discharged from skilled physical therapy as she is at her baseline.
--- NOTE | 2025-02-10 15:38 | PCOTNOTE ---
Per PT: Talked to patient and she reports that she is completely uriel dependent and rarely gets out of bed and into the WC. She is dependent for her ADL care. Discharged from skilled occupational therapy as she is at her baseline.
[2025-02-10] MEDS: RIVAROXABAN 20 MG TABLET PO (17:33)
[2025-02-10] MEDS: cefTRIAXone 1 GM in SODIUM CHLORIDE 0.9% IV 50 ML 100 ML IVPB (17:34)
[2025-02-10] MEDS: LACTULOSE 20 GM/30 ML UDC 30 GM PO (17:41)
[2025-02-10] MEDS: BISACODYL 5 MG TABLET EC 10 MG PO (17:51)
[2025-02-10] MEDS: ZOLPIDEM TARTRATE (*CRX) 5 MG TABLET PO (21:44)
[2025-02-10] MEDS: LIDOCAINE 5% PATCH 2 PATCH TOPICAL (21:45)
[2025-02-10] MEDS: ATORVASTATIN 10 MG TABLET PO (21:45)
[2025-02-11] VITALS (13 sets, daily range): BP systolic 114–154; BP diastolic 46–60; PULSE 58–70; RESP 16–20; TEMP 36.4–36.7; O2SAT 96–100
[2025-02-11] MEDS: oxyCODONE/ACETAMINOPHEN (*CRX) 5-325 MG TABLET 1 TABLET PO ×3 (01:08→16:50)
[2025-02-11 04:55] LABS: Hematocrit 27.7 % (37.0-47.0); Hemoglobin 9.0 g/dL (12.0-15.0); Mean Corpuscular HGB Conc 32.5 g/dl (32-36); Mean Corpuscular Hemoglobin 27.8 pg (26-34); Mean Corpuscular Volume 85.5 fl (80-100); Platelet Count Result 177 k/mm3 (150-375); Red Blood Count 3.24 M/mm3 (4.2-5.4); White Blood Count 5.9 K/mm3 (4.5-10.0)
[2025-02-11 05:17] LABS: Albumin Level 3.1 g/dL (3.5-5.1); Anion Gap 6 mmol/L (4-12); Blood Urea Nitrogen 7 mg/dL (7-17); Calcium 8.1 mg/dL (8.4-10.2); Carbon Dioxide 28 mmol/L (22-30); Chloride 89 mmol/L (98-107); Estimated CRCL calculation 92 ml/min; Estimated Glomerular Filt Rate > 60; Glucose 106 mg/dL (65-110); Magnesium 1.5 mg/dL (1.6-2.3); Potassium 3.6 mmol/L (3.4-5.0); Sodium 123 mmol/L (137-145)
--- NOTE | 2025-02-11 07:38 | P.PNIM_ITS ---
Progress Note: A&P Assessment and Plan (1) Acute hyponatremia: Code(s): E87.1 - Hypo-osmolality and hyponatremia Status: Acute (2) Atrial fibrillation with RVR: Code(s): I48.91 - Unspecified atrial fibrillation Status: Acute (3) Diabetes: Code(s): E11.9 - Type 2 diabetes mellitus without complications Status: Acute (4) CVA (cerebral vascular accident): Code(s): I63.9 - Cerebral infarction, unspecified Status: Acute (5) Acute UTI: Code(s): N39.0 - Urinary tract infection, site not specified Status: Acute Plan 74 y/o female presented with weakness and is found to have hyponatremia most likely cause of her lethargy, upon arrival patient sodium was 113 and it suddenly eric to 118 without any intervention, possible error in drawing or lab, however her baseline sodium is 130s, patient is seen by inspector clip on sunglasses occluding pulmonary disease, proton pump inhibitor, poor osmolar intake with more generous fluid intake and recent multiple cerebellar storkes, because of sudden rise in her sodium, plan is to monitor and trend her sodium, patient is treated with fluid restriction and her sodium is trending up to 126 compared to 118 upon arrival, patient remains clinically stable, will CPM. Subjective Date/time seen: 02/10/25 07:38 Interval history: 74 y/o female presented with weakness and is found to have hyponatremia most likely cause of her lethargy, upon arrival patient sodium was 113 and it suddenly eric to 118 without any intervention, possible error in drawing or lab, however her baseline sodium is 130s, patient is seen by inspector clip on sunglasses occluding pulmonary disease, proton pump inhibitor, poor osmolar intake with more generous fluid intake and recent multiple cerebellar storkes, because of sudden rise in her sodium, plan is to monitor and trend her sodium, patient is treated with fluid restriction and her sodium is trending up to 126 compared to 118 upon arrival, patient remains clinically stable, will CPM. Exam Narrative: Morbidly obese Patient is comfortable, NAD HEENT: eyes are clear and none icteric LUNGS:CTA HEART: RR S1S2 ABD: BS+, Soft and nontender Lower extremities: no edema SKIN: nonjaundiced Neuro: grossly intact. Objective Data Vital Signs Vital Signs: Vital Signs - 24 hr 02/10/25 07:41 02/10/25 08:00 02/10/25 08:00 Temperature 36.7 C Pulse Rate 69 79 Respiratory Rate 20 Blood Pressure 153/55 H Pulse Oximetry 99 99 Oxygen Delivery Nasal Cannula Oxygen Flow Rate 2 02/10/25 11:18 02/10/25 12:00 02/10/25 16:00 Temperature 36.2 C L Pulse Rate 57 L 62 Respiratory Rate 18 Blood Pressure 167/44 H Pulse Oximetry 99 100 Oxygen Delivery Nasal Cannula Oxygen Flow Rate 2 02/10/25 16:00 02/10/25 20:00 02/10/25 20:00 Temperature Pulse Rate 64 55 L Respiratory Rate Blood Pressure Pulse Oximetry 100 Oxygen Delivery Nasal Cannula Oxygen Flow Rate 2 02/10/25 23:50 02/11/25 00:00 02/11/25 04:00 Temperature 36.8 C Pulse Rate 64 68 59 L Respiratory Rate 16 Blood Pressure 162/54 H Pulse Oximetry 100 Oxygen Delivery Oxygen Flow Rate 02/11/25 07:16 Temperature 36.7 C Pulse Rate 65 Respiratory Rate 16 Blood Pressure 152/60 H Pulse Oximetry 98 Oxygen Delivery Oxygen Flow Rate Intake/Output Intake/Output: Intake & Output 02/08/25 02/09/25 02/10/25 02/11/25 23:59 23:59 23:59 23:59 Intake Total 2150 840 1020 390 Output Total 500 3500 750 550 Balance 1650 -2660 270 -160 Meds/Results Medications: Active Medications Generic Name Dose Route Start Last Admin Trade Name Freq PRN Reason Stop Dose Admin Amlodipine Besylate 10 mg 02/10/25 09:00 02/10/25 08:17 Amlodipine Besylate 10 Mg Tablet PO 10 mg DAILY KELIN Administration Artificial Tears 2 drop 02/09/25 09:59 Artificial Tears Ophth Soln 15 Ml Bottle EACH EYE BID PRN dry eye(s) Atorvastatin Calcium 10 mg 02/09/25 21:00 02/10/25 21:45 Atorvastatin 10 Mg Tablet PO 10 mg HS KELIN Administration Bisacodyl 10 mg 02/09/25 09:36 02/10/25 17:51 Bisacodyl 5 Mg Tablet Ec PO 10 mg HS PRN Administration Constipation Buspirone HCl 10 mg 02/09/25 13:00 02/10/25 17:33 Buspirone Hcl 10 Mg Tablet PO 10 mg TID KELIN Administration Clonazepam 0.5 mg 02/09/25 09:40 02/10/25 21:45 Clonazepam (*Crx) 0.5 Mg Tablet PO 0.5 mg Q12HR KELIN Administration Clonidine HCl 1 patch 02/16/25 09:00 Clonidine 0.1 Mg/24 Hr Patch TRANSDERM WEEKLY KELIN Docusate Sodium 200 mg 02/09/25 17:00 02/10/25 17:33 Docusate Sodium 100 Mg Capsule PO 200 mg BID KELIN Administration Famciclovir 250 mg 02/09/25 10:15 02/10/25 21:44 Famciclovir 250 Mg Tablet PO 250 mg Q12HR KELIN Administration Famotidine 10 mg 02/10/25 09:00 02/10/25 08:17 Famotidine 10 Mg Tablet PO 10 mg DAILY KELIN Administration Fluticasone Propionate 1 spray 02/09/25 09:00 02/10/25 08:14 Fluticasone Propionate 0.05% Na Spr 16 Gm Btl (*Bkc) NASAL 1 spray DAILY KELIN Administration Glucose 15 gm 02/08/25 21:08 Glucose Oral Gel 15 Gm Of Glucse In 37.5 Gm Tube PO PRN PRN Hypoglycemia Protocol Guaifenesin 1,200 mg 02/09/25 09:50 02/10/25 21:44 Guaifenesin 12 Hr 600 Mg Tabcr PO 1,200 mg Q12HR KELIN Administration Hydralazine HCl 25 mg 02/09/25 14:00 02/11/25 05:44 Hydralazine Hcl 25 Mg Tablet PO 25 mg Q8HR KELIN Administration Ceftriaxone Sodium 1 gm/ 50 mls @ 100 mls/hr 02/09/25 17:00 02/10/25 17:34 Sodium Chloride IVPB 100 mls/hr Q24H KELIN Administration Dextrose 1,000 mls @ 100 mls/hr 02/08/25 21:08 Dextrose 5% 1,000 Ml IVPB PRN PRN Hypoglycemia Protocol Irbesartan 300 mg 02/10/25 09:00 02/10/25 08:17 Irbesartan 150 Mg Tablet PO 300 mg QAM KELIN Administration Isosorbide Mononitrate 30 mg 02/10/25 09:00 02/10/25 08:17 Isosorbide Mononitrate 30 Mg Tab.Er.24h PO 30 mg DAILY KELIN Administration Lactulose 30 gm 02/09/25 17:00 02/10/25 17:41 Lactulose 20 Gm/30 Ml Udc PO 30 gm BID KELIN Administration Lidocaine 2 patch 02/09/25 21:00 02/10/25 21:45 Lidocaine 5% Patch TOPICAL 2 patch HS KELIN Administration Magnesium Citrate 300 ml 02/09/25 09:36 Magnesium Citrate 300 Ml Btl PO DAILY PRN constipation Magnesium Hydroxide 30 ml 02/09/25 09:36 Magnesium Hydroxide Susp 30 Ml Udc PO DAILY PRN constipation Memantine 5 mg 02/09/25 17:00 02/10/25 17:33 Memantine 5 Mg Tablet PO 5 mg BID KELIN Administration Metoprolol Succinate 300 mg 02/09/25 09:00 02/09/25 10:58 Metoprolol Succinate Ext Rel 100 Mg Tabcr PO 300 mg QAM KELIN Administration Miscellaneous Information 1 each 02/09/25 00:01 Clonidine 0.1 Mg/24 Hr Patch Need Day Of Week Due XX 03/11/25 00:00 [facility] Miscellaneous Information 1 each 02/10/25 00:01 Multiple Meds Prn For Constipation. Please Clarify And Include Parameters XX 03/12/25 00:00 [facility] Ondansetron HCl 4 mg 02/08/25 21:05 Ondansetron Inj 4 Mg/2 Ml Vial IV PUSH Q4H PRN Nausea Ondansetron HCl 4 mg 02/09/25 13:00 02/10/25 17:33 Ondansetron Hcl Odt 4 Mg Tablet PO 4 mg TID KELIN Administration Oxycodone/Acetaminophen 1 tablet 02/09/25 09:36 02/11/25 01:08 Oxycodone/Acetaminophen (*Crx) 5-325 Mg Tablet PO 1 tablet Q8H PRN Administration Pain Rated 7-10 Polyethylene Glycol 17 gm 02/09/25 09:36 Polyethylene Glycol 3350 17 Gm Powd.Pack PO DAILY PRN Constipation Pregabalin 150 mg 02/09/25 17:00 02/10/25 17:33 Pregabalin (*Crx) 75 Mg Capsule PO 150 mg BID KELIN Administration Primidone 200 mg 02/09/25 17:00 02/10/25 17:44 Primidone 50 Mg Tablet BY MOUTH 200 mg BID KELIN Administration Rivaroxaban 20 mg 02/09/25 17:00 02/10/25 17:33 Rivaroxaban 20 Mg Tablet PO 20 mg DAILY@1700 [facility] Administration Spironolactone 25 mg 02/10/25 09:00 02/10/25 08:18 Spironolactone 25 Mg Tablet PO 25 mg DAILY KELIN Administration Tizanidine HCl 2 mg 02/09/25 17:00 02/10/25 17:33 Tizanidine Hcl 2 Mg Tablet PO 2 mg BID KELIN Administration Venlafaxine HCl 37.5 mg 02/10/25 09:00 02/10/25 08:18 Venlafaxine Hcl Xr 37.5 Mg Cap PO 37.5 mg DAILY KELIN Administration Zolpidem Tartrate 5 mg 02/09/25 21:00 02/10/25 21:44 Zolpidem Tartrate (*Crx) 5 Mg Tablet PO 5 mg HS KELIN Administration Radiology Results: ITS Impressions Head CT 02/08/25 15:19 IMPRESSION: No acute intracranial process. Chest X-Ray 02/08/25 15:40 IMPRESSION: Left basilar atelectasis versus pneumonia Labs Labs: Laboratory Results - last 24 hr 02/10/25 02/10/25 02/10/25 11:26 13:25 16:52 WBC RBC Hgb Hct MCV MCH MCHC RDW Plt Count MPV Sodium 121 L Potassium Chloride Carbon Dioxide Anion Gap BUN Creatinine Estim Creat Clear Calc Estimated GFR Glucose POC Capillary Glucose 131 H 85 Calcium Phosphorus Magnesium Albumin 02/10/25 02/11/25 23:56 04:19 WBC 5.9 RBC 3.24 L Hgb 9.0 L Hct 27.7 L MCV 85.5 MCH 27.8 MCHC 32.5 RDW 15.3 H Plt Count 177 MPV 11.2 H Sodium 123 L Potassium 3.6 Chloride 89 L Carbon Dioxide 28 Anion Gap 6 BUN 7 Creatinine 0.47 L Estim Creat Clear Calc 92 Estimated GFR > 60 Glucose 106 POC Capillary Glucose 110 H Calcium 8.1 L Phosphorus 3.0 Magnesium 1.5 L Albumin 3.1 L
--- NOTE | 2025-02-11 09:01 | P.PNNP_ITS ---
Progress Note: A&P Assessment and Plan (1) Hyponatremia: Code(s): E87.1 - Hypo-osmolality and hyponatremia Status: Acute Assessment and Plan: the patient has chronic hyponatremia. This is likely due to multiple issues and occluding pulmonary disease, proton pump inhibitor, poor osmolar intake with more generous fluid intake and in the past narcotics and a new development with the multiple cerebellar strokes.. Her baseline sodium seems to run in the high 120s and the low 130s. Sodium level up and down. Now the levels 123 which is acceptable. Will check another sodium level this afternoon. Will let the sodium level gradually increase to her baseline of about 128-130. She is on fluid restriction. Will go ahead and add sodium chloride. She is asking for this to see if it will help keep her out of the hospital. I do not think it would do any harm as long she does not have any swelling. (2) AMS (altered mental status): Code(s): R41.82 - Altered mental status, unspecified Status: Acute Assessment and Plan: This seems at baseline right now (3) Obstructive sleep apnea: Code(s): G47.33 - Obstructive sleep apnea (adult) (pediatric) Status: Acute Assessment and Plan: the patient does not tolerate a CPAP mask (4) HTN (hypertension): Qualifiers: Hypertension type: essential hypertension Qualified Code(s): I10 - Essential (primary) hypertension Code(s): I10 - Essential (primary) hypertension Status: Chronic Assessment and Plan: her blood pressure is 130s to 160s. She is on amlodipine, irbesartan, clonidine patch and hydralazine off the spironolactone The patient has had 7 doses of 25mg of hydralazine. Will up this to50mg. (5) HLD (hyperlipidemia): Qualifiers: Hyperlipidemia type: unspecified Qualified Code(s): E78.5 - Hyperlipidemia, unspecified Code(s): E78.5 - Hyperlipidemia, unspecified Status: Chronic Assessment and Plan: the patient is on atorvastatin (6) CVA (cerebral vascular accident): Code(s): I63.9 - Cerebral infarction, unspecified Status: Acute Assessment and Plan: No current issues. Neurology saw the patient in the past. Subjective Date/time seen: 02/11/25 09:01 Interval history: Patient is sleeping. Easily aroused. Eating okay. Exam Narrative: WDWN in NAD skin no rash or subQ nodules head ncat lungs clear bilaterally cor reg no rub abd BS+ nontender and soft ext no edema. Objective Data Vital Signs Vital Signs: Vital Signs - 24 hr 02/10/25 11:18 02/10/25 12:00 02/10/25 16:00 Temperature 97.2 F L Pulse Rate 57 L 62 Respiratory Rate 18 Blood Pressure 167/44 H Pulse Oximetry 99 100 Oxygen Delivery Nasal Cannula Oxygen Flow Rate 2 02/10/25 16:00 02/10/25 20:00 02/10/25 20:00 Temperature Pulse Rate 64 55 L Respiratory Rate Blood Pressure Pulse Oximetry 100 Oxygen Delivery Nasal Cannula Oxygen Flow Rate 2 02/10/25 23:50 02/11/25 00:00 02/11/25 04:00 Temperature 98.3 F Pulse Rate 64 68 59 L Respiratory Rate 16 Blood Pressure 162/54 H Pulse Oximetry 100 Oxygen Delivery Oxygen Flow Rate 02/11/25 07:16 Temperature 98.0 F Pulse Rate 65 Respiratory Rate 16 Blood Pressure 152/60 H Pulse Oximetry 98 Oxygen Delivery Oxygen Flow Rate Intake/Output Intake/Output: Intake & Output 02/08/25 02/09/25 02/10/25 02/11/25 23:59 23:59 23:59 23:59 Intake Total 2150 840 1020 390 Output Total 500 3500 750 550 Balance 1650 -2660 270 -160 Meds/Results Medications: Active Medications Generic Name Dose Route Start Last Admin Trade Name Freq PRN Reason Stop Dose Admin Amlodipine Besylate 10 mg 02/10/25 09:00 02/10/25 08:17 Amlodipine Besylate 10 Mg Tablet PO 10 mg DAILY KELIN Administration Artificial Tears 2 drop 02/09/25 09:59 Artificial Tears Ophth Soln 15 Ml Bottle EACH EYE BID PRN dry eye(s) Atorvastatin Calcium 10 mg 02/09/25 21:00 02/10/25 21:45 Atorvastatin 10 Mg Tablet PO 10 mg HS KELIN Administration Bisacodyl 10 mg 02/09/25 09:36 02/10/25 17:51 Bisacodyl 5 Mg Tablet Ec PO 10 mg HS PRN Administration Constipation Buspirone HCl 10 mg 02/09/25 13:00 02/10/25 17:33 Buspirone Hcl 10 Mg Tablet PO 10 mg TID KELIN Administration Clonazepam 0.5 mg 02/09/25 09:40 02/10/25 21:45 Clonazepam (*Crx) 0.5 Mg Tablet PO 0.5 mg Q12HR KELIN Administration Clonidine HCl 1 patch 02/11/25 09:00 Clonidine 0.1 Mg/24 Hr Patch TRANSDERM WEEKLY KELIN Docusate Sodium 200 mg 02/09/25 17:00 02/10/25 17:33 Docusate Sodium 100 Mg Capsule PO 200 mg BID KELIN Administration Famciclovir 250 mg 02/09/25 10:15 02/10/25 21:44 Famciclovir 250 Mg Tablet PO 250 mg Q12HR KELIN Administration Famotidine 10 mg 02/10/25 09:00 02/10/25 08:17 Famotidine 10 Mg Tablet PO 10 mg DAILY KELIN Administration Fluticasone Propionate 1 spray 02/09/25 09:00 02/10/25 08:14 Fluticasone Propionate 0.05% Na Spr 16 Gm Btl (*Bkc) NASAL 1 spray DAILY KELIN Administration Glucose 15 gm 02/08/25 21:08 Glucose Oral Gel 15 Gm Of Glucse In 37.5 Gm Tube PO PRN PRN Hypoglycemia Protocol Guaifenesin 1,200 mg 02/09/25 09:50 02/10/25 21:44 Guaifenesin 12 Hr 600 Mg Tabcr PO 1,200 mg Q12HR KELIN Administration Hydralazine HCl 25 mg 02/09/25 14:00 02/11/25 05:44 Hydralazine Hcl 25 Mg Tablet PO 25 mg Q8HR KELIN Administration Ceftriaxone Sodium 1 gm/ 50 mls @ 100 mls/hr 02/09/25 17:00 02/10/25 17:34 Sodium Chloride IVPB 100 mls/hr Q24H KELIN Administration Dextrose 1,000 mls @ 100 mls/hr 02/08/25 21:08 Dextrose 5% 1,000 Ml IVPB PRN PRN Hypoglycemia Protocol Irbesartan 300 mg 02/10/25 09:00 02/10/25 08:17 Irbesartan 150 Mg Tablet PO 300 mg QAM KELIN Administration Isosorbide Mononitrate 30 mg 02/10/25 09:00 02/10/25 08:17 Isosorbide Mononitrate 30 Mg Tab.Er.24h PO 30 mg DAILY KELIN Administration Lactulose 30 gm 02/09/25 17:00 02/10/25 17:41 Lactulose 20 Gm/30 Ml Udc PO 30 gm BID KELIN Administration Lidocaine 2 patch 02/09/25 21:00 02/10/25 21:45 Lidocaine 5% Patch TOPICAL 2 patch HS KELIN Administration Magnesium Citrate 300 ml 02/09/25 09:36 Magnesium Citrate 300 Ml Btl PO DAILY PRN constipation Magnesium Hydroxide 30 ml 02/09/25 09:36 Magnesium Hydroxide Susp 30 Ml Udc PO DAILY PRN constipation Memantine 5 mg 02/09/25 17:00 02/10/25 17:33 Memantine 5 Mg Tablet PO 5 mg BID KELIN Administration Metoprolol Succinate 300 mg 02/09/25 09:00 02/09/25 10:58 Metoprolol Succinate Ext Rel 100 Mg Tabcr PO 300 mg QAM KELIN Administration Miscellaneous Information 1 each 02/10/25 00:01 Multiple Meds Prn For Constipation. Please Clarify And Include Parameters XX 03/12/25 00:00 [facility] Ondansetron HCl 4 mg 02/08/25 21:05 Ondansetron Inj 4 Mg/2 Ml Vial IV PUSH Q4H PRN Nausea Ondansetron HCl 4 mg 02/09/25 13:00 02/10/25 17:33 Ondansetron Hcl Odt 4 Mg Tablet PO 4 mg TID KELIN Administration Oxycodone/Acetaminophen 1 tablet 02/09/25 09:36 02/11/25 01:08 Oxycodone/Acetaminophen (*Crx) 5-325 Mg Tablet PO 1 tablet Q8H PRN Administration Pain Rated 7-10 Polyethylene Glycol 17 gm 02/09/25 09:36 Polyethylene Glycol 3350 17 Gm Powd.Pack PO DAILY PRN Constipation Pregabalin 150 mg 02/09/25 17:00 02/10/25 17:33 Pregabalin (*Crx) 75 Mg Capsule PO 150 mg BID [facility] Administration Primidone 200 mg 02/09/25 17:00 02/10/25 17:44 Primidone 50 Mg Tablet BY MOUTH 200 mg BID KELIN Administration Rivaroxaban 20 mg 02/09/25 17:00 02/10/25 17:33 Rivaroxaban 20 Mg Tablet PO 20 mg DAILY@1700 [facility] Administration Spironolactone 25 mg 02/10/25 09:00 02/10/25 08:18 Spironolactone 25 Mg Tablet PO 25 mg DAILY KELIN Administration Tizanidine HCl 2 mg 02/09/25 17:00 02/10/25 17:33 Tizanidine Hcl 2 Mg Tablet PO 2 mg BID KELIN Administration Venlafaxine HCl 37.5 mg 02/10/25 09:00 02/10/25 08:18 Venlafaxine Hcl Xr 37.5 Mg Cap PO 37.5 mg DAILY KELIN Administration Zolpidem Tartrate 5 mg 02/09/25 21:00 02/10/25 21:44 Zolpidem Tartrate (*Crx) 5 Mg Tablet PO 5 mg HS KELIN Administration Radiology Results: ITS Impressions Head CT 02/08/25 15:19 IMPRESSION: No acute intracranial process. Chest X-Ray 02/08/25 15:40 IMPRESSION: Left basilar atelectasis versus pneumonia Labs Labs: Laboratory Results - last 24 hr 02/10/25 02/10/25 02/10/25 11:26 13:25 16:52 WBC RBC Hgb Hct MCV MCH MCHC RDW Plt Count MPV Sodium 121 L Potassium Chloride Carbon Dioxide Anion Gap BUN Creatinine Estim Creat Clear Calc Estimated GFR Glucose POC Capillary Glucose 131 H 85 Calcium Phosphorus Magnesium Albumin 02/10/25 02/11/25 02/11/25 23:56 04:19 08:03 WBC 5.9 RBC 3.24 L Hgb 9.0 L Hct 27.7 L MCV 85.5 MCH 27.8 MCHC 32.5 RDW 15.3 H Plt Count 177 MPV 11.2 H Sodium 123 L Potassium 3.6 Chloride 89 L Carbon Dioxide 28 Anion Gap 6 BUN 7 Creatinine 0.47 L Estim Creat Clear Calc 92 Estimated GFR > 60 Glucose 106 POC Capillary Glucose 110 H 84 Calcium 8.1 L Phosphorus 3.0 Magnesium 1.5 L Albumin 3.1 L
[2025-02-11] MEDS: guaiFENesin 12 HR 600 MG TABCR 1200 MG PO ×2 (09:55→21:24)
[2025-02-11] MEDS: BISACODYL 5 MG TABLET EC 10 MG PO (09:55)
[2025-02-11] MEDS: VENLAFAXINE HCL XR 37.5 MG CAP PO (09:55)
[2025-02-11] MEDS: ISOSORBIDE MONONITRATE 30 MG TAB.ER.24H PO (09:56)
[2025-02-11] MEDS: ONDANSETRON HCL ODT 4 MG TABLET PO ×3 (09:56→16:50)
[2025-02-11] MEDS: PREGABALIN (*CRX) 75 MG CAPSULE 150 MG PO ×2 (09:56→16:49)
[2025-02-11] MEDS: PRIMIDONE 50 MG TABLET 200 MG BY MOUTH ×2 (09:56→21:24)
[2025-02-11] MEDS: FAMOTIDINE 10 MG TABLET PO (09:56)
[2025-02-11] MEDS: clonazePAM (*CRX) 0.5 MG TABLET PO ×2 (09:56→21:24)
[2025-02-11] MEDS: SPIRONOLACTONE 25 MG TABLET PO (09:56)
[2025-02-11] MEDS: DOCUSATE SODIUM 100 MG CAPSULE 200 MG PO ×2 (09:56→16:50)
[2025-02-11] MEDS: TIZANIDINE HCL 2 MG TABLET PO ×2 (09:57→16:50)
[2025-02-11] MEDS: FAMCICLOVIR 250 MG TABLET PO ×2 (09:57→21:26)
[2025-02-11] MEDS: MEMANTINE 5 MG TABLET PO ×2 (09:57→16:50)
[2025-02-11] MEDS: FLUTICASONE PROPIONATE 0.05% NA SPR 16 GM BTL (*BKC) 1 SPRAY NASAL (09:59)
[2025-02-11] MEDS: IRBESARTAN 150 MG TABLET 300 MG PO (10:04)
[2025-02-11] MEDS: MAGNESIUM SULF 2 GM/WATER 50ML 2 GM/50 ML BAG IVPB (10:32)
[2025-02-11 16:08] LABS: Sodium 123 mmol/L (137-145)
[2025-02-11] MEDS: cefTRIAXone 1 GM in SODIUM CHLORIDE 0.9% IV 50 ML 100 ML IVPB (16:35)
[2025-02-11] MEDS: RIVAROXABAN 20 MG TABLET PO (16:50)
[2025-02-11] MEDS: SODIUM CHLORIDE 3% 270 ML 45 ML IV CONT (17:21)
--- NOTE | 2025-02-11 17:39 | PM.IMPN ---
Progress Note: A&P Assessment and Plan (1) Acute hyponatremia: Code(s): E87.1 - Hypo-osmolality and hyponatremia Status: Acute (2) Atrial fibrillation with RVR: Code(s): I48.91 - Unspecified atrial fibrillation Status: Acute (3) Diabetes: Code(s): E11.9 - Type 2 diabetes mellitus without complications Status: Acute (4) CVA (cerebral vascular accident): Code(s): I63.9 - Cerebral infarction, unspecified Status: Acute (5) Acute UTI: Code(s): N39.0 - Urinary tract infection, site not specified Status: Acute Plan 74 y/o female presented with weakness and is found to have hyponatremia most likely cause of her lethargy, upon arrival patient sodium was 113 and it suddenly eric to 118 without any intervention, possible error in drawing or lab, however her baseline sodium is 130s, patient is seen by diamond sizer occluding pulmonary disease, proton pump inhibitor, poor osmolar intake with more generous fluid intake and recent multiple cerebellar storkes, because of sudden rise in her sodium, plan is to monitor and trend her sodium, patient is treated with fluid restriction and her sodium is trending up to 126 compared to 118 upon arrival, today patient was seen by Dr. Westfall, continued fluid restriction and added 3% sodium chloride, will monitor sodium levels, patient remains clinically stable. Subjective Date/time seen: 02/11/25 17:39 Interval history: 74 y/o female presented with weakness and is found to have hyponatremia most likely cause of her lethargy, upon arrival patient sodium was 113 and it suddenly eric to 118 without any intervention, possible error in drawing or lab, however her baseline sodium is 130s, patient is seen by diamond sizer occluding pulmonary disease, proton pump inhibitor, poor osmolar intake with more generous fluid intake and recent multiple cerebellar storkes, because of sudden rise in her sodium, plan is to monitor and trend her sodium, patient is treated with fluid restriction and her sodium is trending up to 126 compared to 118 upon arrival, today patient was seen by Dr. Westfall, continued fluid restriction and added 3% sodium chloride, will monitor sodium levels, patient remains clinically stable. Exam Narrative: Morbidly obese Patient is comfortable, NAD HEENT: eyes are clear and none icteric LUNGS:CTA HEART: RR S1S2 ABD: BS+, Soft and nontender Lower extremities: no edema SKIN: nonjaundiced Neuro: grossly intact. Objective Data Vital Signs Vital Signs: Vital Signs - 24 hr 02/10/25 20:00 02/10/25 20:00 02/10/25 23:50 Temperature 36.8 C Pulse Rate 55 L 64 Respiratory Rate 16 Blood Pressure 162/54 H Pulse Oximetry 100 100 Oxygen Delivery Nasal Cannula Oxygen Flow Rate 2 02/11/25 00:00 02/11/25 04:00 02/11/25 07:16 Temperature 36.7 C Pulse Rate 68 59 L 65 Respiratory Rate 16 Blood Pressure 152/60 H Pulse Oximetry 98 Oxygen Delivery Oxygen Flow Rate 02/11/25 07:52 02/11/25 08:00 02/11/25 10:00 Temperature Pulse Rate 70 Respiratory Rate Blood Pressure Pulse Oximetry 97 96 Oxygen Delivery Nasal Cannula Nasal Cannula Oxygen Flow Rate 2 2 02/11/25 12:00 02/11/25 13:04 02/11/25 13:36 Temperature 36.4 C L Pulse Rate 67 62 58 L Respiratory Rate 18 Blood Pressure 154/49 H 114/46 L Pulse Oximetry 96 100 Oxygen Delivery Oxygen Flow Rate Intake/Output Intake/Output: Intake & Output 02/08/25 02/09/25 02/10/25 02/11/25 23:59 23:59 23:59 23:59 Intake Total 2150 840 1070 630 Output Total 500 3500 750 550 Balance 1650 -2660 320 80 Meds/Results Medications: Active Medications Generic Name Dose Route Start Last Admin Trade Name Freq PRN Reason Stop Dose Admin Amlodipine Besylate 10 mg 02/10/25 09:00 02/11/25 09:56 Amlodipine Besylate 10 Mg Tablet PO 10 mg DAILY KELIN Administration Artificial Tears 2 drop 02/09/25 09:59 Artificial Tears Ophth Soln 15 Ml Bottle EACH EYE BID PRN dry eye(s) Atorvastatin Calcium 10 mg 02/09/25 21:00 02/10/25 21:45 Atorvastatin 10 Mg Tablet PO 10 mg HS KELIN Administration Bisacodyl 10 mg 02/09/25 09:36 02/11/25 09:55 Bisacodyl 5 Mg Tablet Ec PO 10 mg HS PRN Administration Constipation Buspirone HCl 10 mg 02/09/25 13:00 02/11/25 16:50 Buspirone Hcl 10 Mg Tablet PO 10 mg TID KELIN Administration Calamine 1 applic 02/12/25 09:00 Calamine Lotion 120 Ml Bottle TOPICAL QAM KELIN Clonazepam 0.5 mg 02/09/25 09:40 02/11/25 09:56 Clonazepam (*Crx) 0.5 Mg Tablet PO 0.5 mg Q12HR KELIN Administration Clonidine HCl 1 patch 02/11/25 09:00 02/11/25 10:03 Clonidine 0.1 Mg/24 Hr Patch TRANSDERM 1 patch WEEKLY KELIN Administration Docusate Sodium 200 mg 02/09/25 17:00 02/11/25 16:50 Docusate Sodium 100 Mg Capsule PO 200 mg BID KELIN Administration Famciclovir 250 mg 02/09/25 10:15 02/11/25 09:57 Famciclovir 250 Mg Tablet PO 250 mg Q12HR KELIN Administration Famotidine 10 mg 02/10/25 09:00 02/11/25 09:56 Famotidine 10 Mg Tablet PO 10 mg DAILY KELIN Administration Fluticasone Propionate 1 spray 02/09/25 09:00 02/11/25 09:59 Fluticasone Propionate 0.05% Na Spr 16 Gm Btl (*Bkc) NASAL 1 spray DAILY KELIN Administration Glucose 15 gm 02/08/25 21:08 Glucose Oral Gel 15 Gm Of Glucse In 37.5 Gm Tube PO PRN PRN Hypoglycemia Protocol Guaifenesin 1,200 mg 02/09/25 09:50 02/11/25 09:55 Guaifenesin 12 Hr 600 Mg Tabcr PO 1,200 mg Q12HR KELIN Administration Hydralazine HCl 50 mg 02/11/25 14:00 02/11/25 13:00 Hydralazine Hcl 50 Mg Tablet PO 50 mg Q8HR KELIN Administration Ceftriaxone Sodium 1 gm/ 50 mls @ 100 mls/hr 02/09/25 17:00 02/11/25 16:35 Sodium Chloride IVPB 100 mls/hr Q24H KELIN Administration Dextrose 1,000 mls @ 100 mls/hr 02/08/25 21:08 Dextrose 5% 1,000 Ml IVPB PRN PRN Hypoglycemia Protocol Sodium Chloride 270 mls @ 45 mls/hr 02/11/25 16:35 02/11/25 17:21 Sodium Chloride 3% IV CONT 02/11/25 22:34 45 mls/hr .Q6H KELIN Administration Irbesartan 300 mg 02/10/25 09:00 02/11/25 10:04 Irbesartan 150 Mg Tablet PO 300 mg QAM [facility] Administration Isosorbide Mononitrate 30 mg 02/10/25 09:00 02/11/25 09:56 Isosorbide Mononitrate 30 Mg Tab.Er.24h PO 30 mg DAILY [facility] Administration Lactulose 30 gm 02/09/25 17:00 02/11/25 16:32 Lactulose 20 Gm/30 Ml Udc PO Not Given BID [facility] Lidocaine 2 patch 02/09/25 21:00 02/10/25 21:45 Lidocaine 5% Patch TOPICAL 2 patch HS [facility] Administration Magnesium Citrate 300 ml 02/09/25 09:36 Magnesium Citrate 300 Ml Btl PO DAILY PRN constipation Magnesium Hydroxide 30 ml 02/09/25 09:36 Magnesium Hydroxide Susp 30 Ml Udc PO DAILY PRN constipation Memantine 5 mg 02/09/25 17:00 02/11/25 16:50 Memantine 5 Mg Tablet PO 5 mg BID [facility] Administration Metoprolol Succinate 300 mg 02/09/25 09:00 02/09/25 10:58 Metoprolol Succinate Ext Rel 100 Mg Tabcr PO 300 mg QAM [facility] Administration Ondansetron HCl 4 mg 02/08/25 21:05 Ondansetron Inj 4 Mg/2 Ml Vial IV PUSH Q4H PRN Nausea Ondansetron HCl 4 mg 02/09/25 13:00 02/11/25 16:50 Ondansetron Hcl Odt 4 Mg Tablet PO 4 mg TID [facility] Administration Oxycodone/Acetaminophen 1 tablet 02/09/25 09:36 02/11/25 16:50 Oxycodone/Acetaminophen (*Crx) 5-325 Mg Tablet PO 1 tablet Q8H PRN Administration Pain Rated 7-10 Polyethylene Glycol 17 gm 02/09/25 09:36 Polyethylene Glycol 3350 17 Gm Powd.Pack PO DAILY PRN Constipation Pregabalin 150 mg 02/09/25 17:00 02/11/25 16:49 Pregabalin (*Crx) 75 Mg Capsule PO 150 mg BID [facility] Administration Primidone 200 mg 02/11/25 21:00 Primidone 50 Mg Tablet BY MOUTH Q12HR [facility] Rivaroxaban 20 mg 02/09/25 17:00 02/11/25 16:50 Rivaroxaban 20 Mg Tablet PO 20 mg DAILY@1700 KELIN Administration Spironolactone 25 mg 02/10/25 09:00 02/11/25 09:56 Spironolactone 25 Mg Tablet PO 25 mg DAILY KELIN Administration Tizanidine HCl 2 mg 02/09/25 17:00 02/11/25 16:50 Tizanidine Hcl 2 Mg Tablet PO 2 mg BID KELIN Administration Venlafaxine HCl 37.5 mg 02/10/25 09:00 02/11/25 09:55 Venlafaxine Hcl Xr 37.5 Mg Cap PO 37.5 mg DAILY KELIN Administration Zolpidem Tartrate 5 mg 02/09/25 21:00 02/10/25 21:44 Zolpidem Tartrate (*Crx) 5 Mg Tablet PO 5 mg HS KELIN Administration Radiology Results: ITS Impressions Head CT 02/08/25 15:19 IMPRESSION: No acute intracranial process. Chest X-Ray 02/08/25 15:40 IMPRESSION: Left basilar atelectasis versus pneumonia Labs Labs: Laboratory Results - last 24 hr 02/10/25 02/11/25 02/11/25 23:56 04:19 08:03 WBC 5.9 RBC 3.24 L Hgb 9.0 L Hct 27.7 L MCV 85.5 MCH 27.8 MCHC 32.5 RDW 15.3 H Plt Count 177 MPV 11.2 H Sodium 123 L Potassium 3.6 Chloride 89 L Carbon Dioxide 28 Anion Gap 6 BUN 7 Creatinine 0.47 L Estim Creat Clear Calc 92 Estimated GFR > 60 Glucose 106 POC Capillary Glucose 110 H 84 Calcium 8.1 L Phosphorus 3.0 Magnesium 1.5 L Albumin 3.1 L 02/11/25 02/11/25 02/11/25 11:51 15:44 16:48 WBC RBC Hgb Hct MCV MCH MCHC RDW Plt Count MPV Sodium 123 L Potassium Chloride Carbon Dioxide Anion Gap BUN Creatinine Estim Creat Clear Calc Estimated GFR Glucose POC Capillary Glucose 156 H 141 H Calcium Phosphorus Magnesium Albumin
[2025-02-11] MEDS: ATORVASTATIN 10 MG TABLET PO (21:25)
[2025-02-11] MEDS: LIDOCAINE 5% PATCH 2 PATCH TOPICAL (21:26)
[2025-02-11] MEDS: ZOLPIDEM TARTRATE (*CRX) 5 MG TABLET PO (21:26)
[2025-02-12] VITALS (8 sets, daily range): BP systolic 110–165; BP diastolic 47–65; PULSE 59–71; RESP 12–20; TEMP 36.4–36.7; O2SAT 91–100
[2025-02-12 00:15] LABS: Sodium 127 mmol/L (137-145)
[2025-02-12] MEDS: oxyCODONE/ACETAMINOPHEN (*CRX) 5-325 MG TABLET 1 TABLET PO ×3 (00:59→17:26)
[2025-02-12 05:21] LABS: Hematocrit 30.3 % (37.0-47.0); Hemoglobin 9.5 g/dL (12.0-15.0); Mean Corpuscular HGB Conc 31.4 g/dl (32-36); Mean Corpuscular Hemoglobin 27.4 pg (26-34); Mean Corpuscular Volume 87.3 fl (80-100); Platelet Count Result 183 k/mm3 (150-375); Red Blood Count 3.47 M/mm3 (4.2-5.4); White Blood Count 5.4 K/mm3 (4.5-10.0)
[2025-02-12 05:51] LABS: Albumin Level 3.2 g/dL (3.5-5.1); Anion Gap 5 mmol/L (4-12); Blood Urea Nitrogen 10 mg/dL (7-17); Calcium 8.3 mg/dL (8.4-10.2); Carbon Dioxide 28 mmol/L (22-30); Chloride 94 mmol/L (98-107); Estimated CRCL calculation 74 ml/min; Estimated Glomerular Filt Rate > 60; Glucose 94 mg/dL (65-110); Magnesium 1.9 mg/dL (1.6-2.3); Potassium 4.2 mmol/L (3.4-5.0); Sodium 127 mmol/L (137-145)
[2025-02-12] MEDS: guaiFENesin 12 HR 600 MG TABCR 1200 MG PO ×2 (09:41→21:18)
[2025-02-12] MEDS: clonazePAM (*CRX) 0.5 MG TABLET PO ×2 (09:41→21:18)
[2025-02-12] MEDS: SPIRONOLACTONE 25 MG TABLET PO (09:41)
[2025-02-12] MEDS: ONDANSETRON HCL ODT 4 MG TABLET PO ×3 (09:41→17:27)
[2025-02-12] MEDS: FAMCICLOVIR 250 MG TABLET PO ×2 (09:41→21:18)
[2025-02-12] MEDS: PREGABALIN (*CRX) 75 MG CAPSULE 150 MG PO ×2 (09:43→17:26)
[2025-02-12] MEDS: TIZANIDINE HCL 2 MG TABLET PO ×2 (09:43→17:26)
[2025-02-12] MEDS: MEMANTINE 5 MG TABLET PO ×2 (09:43→17:27)
[2025-02-12] MEDS: FAMOTIDINE 10 MG TABLET PO (09:43)
[2025-02-12] MEDS: ISOSORBIDE MONONITRATE 30 MG TAB.ER.24H PO (09:43)
[2025-02-12] MEDS: IRBESARTAN 150 MG TABLET 300 MG PO (09:43)
[2025-02-12] MEDS: DOCUSATE SODIUM 100 MG CAPSULE 200 MG PO ×2 (09:43→17:27)
[2025-02-12] MEDS: VENLAFAXINE HCL XR 37.5 MG CAP PO (09:43)
[2025-02-12] MEDS: CALAMINE LOTION 120 ML BOTTLE 1 APPLIC TOPICAL (09:44)
[2025-02-12] MEDS: FLUTICASONE PROPIONATE 0.05% NA SPR 16 GM BTL (*BKC) 1 SPRAY NASAL (09:44)
[2025-02-12] MEDS: PRIMIDONE 50 MG TABLET 200 MG BY MOUTH ×2 (09:54→21:19)
[2025-02-12 10:08] LABS: Osmolality, Urine 106 mOsmol/kg (.)
[2025-02-12] MEDS: BISACODYL 5 MG TABLET EC 10 MG PO (12:03)
--- NOTE | 2025-02-12 15:01 | PM.DS ---
DS: Summary Time Spent with Patient Time attestation: Total time spent providing and/or coordinating discharge services: DS: Data Data Completed and Pending Labs on day of discharge: Labs from last 24 hours 02/12/25 02/12/25 02/12/25 12:46 07:51 04:50 WBC 5.4 RBC 3.47 L Hgb 9.5 L Hct 30.3 L MCV 87.3 MCH 27.4 MCHC 31.4 L RDW 15.7 H Plt Count 183 MPV 11.0 H Sodium 127 L Potassium 4.2 Chloride 94 L Carbon Dioxide 28 Anion Gap 5 BUN 10 Creatinine 0.61 L Estim Creat Clear Calc 74 Estimated GFR > 60 Glucose 94 POC Capillary Glucose 187 H 89 Calcium 8.3 L Phosphorus 3.5 Magnesium 1.9 Albumin 3.2 L Urine Osmolality 02/12/25 02/11/25 02/11/25 00:03 20:42 16:48 WBC RBC Hgb Hct MCV MCH MCHC RDW Plt Count MPV Sodium 127 L Potassium Chloride Carbon Dioxide Anion Gap BUN Creatinine Estim Creat Clear Calc Estimated GFR Glucose POC Capillary Glucose 123 H 141 H Calcium Phosphorus Magnesium Albumin Urine Osmolality 02/11/25 02/09/25 15:44 05:51 WBC RBC Hgb Hct MCV MCH MCHC RDW Plt Count MPV Sodium 123 L Potassium Chloride Carbon Dioxide Anion Gap BUN Creatinine Estim Creat Clear Calc Estimated GFR Glucose POC Capillary Glucose Calcium Phosphorus Magnesium Albumin Urine Osmolality 106 Preliminary micro results at discharge 02/08/25 18:46 Blood Culture - Preliminary Blood 02/08/25 18:48 Blood Culture - Preliminary Blood 02/08/25 16:04 - Preliminary Urine Clean Catch Gram negative bacilli isolated Discharge Plan Discharge Attending physician on discharge: Linda Gomez Consulting providers: Daniel Westfall Discharging Clinician: Kuldeep Dee Patient Disposition: [place] [facility] Living Activity: as tolerated Diet: heart healthy Discharge Instructions: Please keep fluids restriction to 1500cc per day, patient to follow up with communications professional and primary care provider as schedule. Patient Instructions: Antibiotic Form, Rivaroxaban (By mouth), Hyponatremia (GEN), Bradycardia (GEN), Fluid Restriction (GEN), Chronic Respiratory Failure (GEN) Patient Language: Belarusian Stand Alone Forms: General Discharge Information Follow-up/Referrals: Daniel Westfall MD [Physician] - UNKNOWN,DOCTOR [Primary Care Provider] - Discharge Medications: New ipratropium-albuterol 0.5 mg-3 mg(2.5 mg base)/3 mL Solution For Nebulization 3 ml inhalation Q6HRT PRN (Reason: Wheezing) Qty: 30 0RF hydralazine 50 mg Tablet 50 mg PO Q8HR Qty: 30 0RF sodium chloride 1,000 mg tablet,soluble 500 mg PO BID Qty: 60 0RF Continued docusate sodium 100 mg Tablet 200 mg PO BID isosorbide mononitrate 30 mg tablet extended release 24 hr 30 mg PO DAILY lidocaine [Lidoderm] 5 % adhesive patch,medicated 2 patch topical HS Patient Comments: left shoulder Rx Instructions: leave on most painful area for up to 12 hrs magnesium hydroxide [Gentle Laxative (mag hydrox)] 400 mg/5 mL suspension 30 ml PO DAILY PRN (Reason: constipation) Xarelto 20 mg Tablet 20 mg PO DAILY@1700 Qty: 60 0RF oxycodone-acetaminophen 5-325 mg Tablet 1 tablet PO Q8H PRN (Reason: Pain Rated 7-10) Qty: 10 0RF irbesartan 150 mg Tablet 300 mg PO QAM Qty: 30 0RF primidone 50 mg tablet See Rx Instructions .ROUTE .COMPLEX Rx Instructions: 200 MG PO BID; spironolactone 25 mg tablet 25 mg PO DAILY venlafaxine 37.5 mg capsule,extended release 24hr 37.5 mg PO DAILY zolpidem 5 mg tablet 5 mg PO HS buspirone 10 mg tablet 10 mg PO TID clonazepam 0.5 mg tablet 0.5 mg PO Q12H magnesium citrate Solution 300 ml PO DAILY PRN (Reason: constipation) lactulose [Enulose] 10 gram/15 mL solution 30 g PO BID famciclovir 250 mg tablet 250 mg PO Q12H atorvastatin [Lipitor] 10 mg tablet 10 mg PO HS sennosides-docusate sodium [Senna Plus] 8.6-50 mg tablet 2 tab-cap PO BID Artificial Tears(pvalch-povid) 0.5-0.6 % drops 2 drp EACH EYE BID PRN (Reason: dry eye(s)) hydralazine 10 mg Tablet 50 mg PO TID clonidine 0.1 mg/24 hr Patch Weekly 1 patch transdermal WEEKLY Qty: 4 0RF tizanidine 2 mg tablet 2 mg PO BID famotidine [Heartburn Relief (famotidine)] 10 mg Tablet 10 mg PO DAILY metoprolol succinate [Toprol XL] 100 mg Tablet Extended Release 24 Hr 300 mg PO QAM fluticasone propionate 50 mcg/actuation [place],Suspension 1 spray INTRANASAL DAILY ondansetron HCl 4 mg tablet 4 mg PO TID amlodipine 10 mg tablet 10 mg PO DAILY bisacodyl [Dulcolax (bisacodyl)] 5 mg Tablet,Delayed Release (Dr/Ec) 10 mg PO HS PRN (Reason: Constipation) polyethylene glycol 3350 [Miralax] 17 gram/dose Powder 17 g PO DAILY PRN (Reason: Constipation) memantine 5 mg tablet 5 mg PO BID guaifenesin [Mucinex] 1,200 mg Tablet Extended Release 12hr 1,200 mg PO BID pregabalin [Lyrica] 150 mg Capsule 150 mg PO BID Qty: 14 0RF Date of admission: 02/09/25 07:48 Primary Care Provider: UNKNOWN,DOCTOR Admitting Provider: Linda Goemz Attending physician on admission: Linda Gomez Condition: Stable
[2025-02-12] MEDS: RIVAROXABAN 20 MG TABLET PO (17:27)
[2025-02-12] MEDS: LACTULOSE 20 GM/30 ML UDC 30 GM PO (17:35)
--- NOTE | 2025-02-12 17:47 | PM.IMPN ---
Progress Note: A&P Assessment and Plan (1) Acute hyponatremia: Code(s): E87.1 - Hypo-osmolality and hyponatremia Status: Acute (2) Atrial fibrillation with RVR: Code(s): I48.91 - Unspecified atrial fibrillation Status: Acute (3) Diabetes: Code(s): E11.9 - Type 2 diabetes mellitus without complications Status: Acute (4) CVA (cerebral vascular accident): Code(s): I63.9 - Cerebral infarction, unspecified Status: Acute (5) Acute UTI: Code(s): N39.0 - Urinary tract infection, site not specified Status: Acute Plan 74 y/o female presented with weakness and is found to have hyponatremia most likely cause of her lethargy, upon arrival patient sodium was 113 and it suddenly eric to 118 without any intervention, possible error in drawing or lab, however her baseline sodium is 130s, patient is seen by testing manager occluding pulmonary disease, proton pump inhibitor, poor osmolar intake with more generous fluid intake and recent multiple cerebellar storkes, because of sudden rise in her sodium, plan is to monitor and trend her sodium, patient is treated with fluid restriction and her sodium is trending up to 126 compared to 118 upon arrival, today patient was seen by Dr. Westfall, continued fluid restriction and added 3% sodium chloride, will monitor sodium levels, patient remains clinically stable. Today patient was seen by her News Videographer patient okay to discharge back [place] with instruction to restrict fluids to 1500cc per day, and salt tablet 500mg BID, patient denies dysuria, frequency of urination, fever or chill, her white counts are normal, her urine culture is growing gram negative bacilli isolated patient has been treated with ceftriaxone for 4 days, and plan was to discharge to back to [facility] as recommended by the testing manager, however patient want to stay one more day in the hospital as patient not happy service she is receiving at the [facility]. will monitor patient overnight will discharge to [facility] tomorrow. patient is alert and oriented and her nurse is present in the room. Subjective Date/time seen: 02/12/25 17:47 Interval history: 74 y/o female presented with weakness and is found to have hyponatremia most likely cause of her lethargy, upon arrival patient sodium was 113 and it suddenly eric to 118 without any intervention, possible error in drawing or lab, however her baseline sodium is 130s, patient is seen by testing manager occluding pulmonary disease, proton pump inhibitor, poor osmolar intake with more generous fluid intake and recent multiple cerebellar storkes, because of sudden rise in her sodium, plan is to monitor and trend her sodium, patient is treated with fluid restriction and her sodium is trending up to 126 compared to 118 upon arrival, today patient was seen by Dr. Westfall, continued fluid restriction and added 3% sodium chloride, will monitor sodium levels, patient remains clinically stable. Today patient was seen by her News Videographer patient okay to discharge back [place] with instruction to restrict fluids to 1500cc per day, and salt tablet 500mg BID, patient denies dysuria, frequency of urination, fever or chill, her white counts are normal, her urine culture is growing gram negative bacilli isolated patient has been treated with ceftriaxone for 4 days, and plan was to discharge to back to [facility] as recommended by the testing manager, however patient want to stay one more day in the hospital as patient not happy service she is receiving at the [facility]. will monitor patient overnight will discharge to [facility] tomorrow. patient is alert and oriented and her nurse is present in the room. Exam Narrative: Morbidly obese Patient is comfortable, NAD HEENT: eyes are clear and none icteric LUNGS:CTA HEART: RR S1S2 ABD: BS+, Soft and nontender Lower extremities: no edema SKIN: nonjaundiced Neuro: grossly intact. Objective Data Vital Signs Vital Signs: Vital Signs - 24 hr 02/11/25 20:00 02/11/25 20:00 02/11/25 20:30 Temperature Pulse Rate 61 Respiratory Rate Blood Pressure Pulse Oximetry 100 98 Oxygen Delivery Nasal Cannula Nasal Cannula Oxygen Flow Rate 2 2 02/11/25 20:42 02/12/25 00:00 02/12/25 04:00 Temperature 36.6 C Pulse Rate 64 66 61 Respiratory Rate 20 Blood Pressure 139/55 L Pulse Oximetry 100 Oxygen Delivery Oxygen Flow Rate 02/12/25 05:11 02/12/25 08:00 02/12/25 08:00 Temperature 36.4 C Pulse Rate 65 64 Respiratory Rate 20 Blood Pressure 165/65 H Pulse Oximetry 100 96 Oxygen Delivery Nasal Cannula Oxygen Flow Rate 2 02/12/25 13:32 Temperature 36.6 C Pulse Rate 59 L Respiratory Rate 16 Blood Pressure 110/47 L Pulse Oximetry 98 Oxygen Delivery Oxygen Flow Rate Intake/Output Intake/Output: Intake & Output 02/09/25 02/10/25 02/11/25 02/12/25 23:59 23:59 23:59 23:59 Intake Total 840 1070 1160 720 Output Total 3500 750 1700 1450 Balance -2660 223 -111 -424 Meds/Results Medications: Active Medications Generic Name Dose Route Start Last Admin Trade Name Freq PRN Reason Stop Dose Admin Albuterol/Ipratropium 3 ml 02/12/25 14:09 Ipratropium 0.5 Mg/Albuterol Sulfate 2.5 Mg Ampul.Neb 3 Ml INHALATION Q6HRT PRN Wheezing Amlodipine Besylate 10 mg 02/10/25 09:00 02/12/25 09:43 Amlodipine Besylate 10 Mg Tablet PO 10 mg DAILY KELIN Administration Artificial Tears 2 drop 02/09/25 09:59 Artificial Tears Ophth Soln 15 Ml Bottle EACH EYE BID PRN dry eye(s) Atorvastatin Calcium 10 mg 02/09/25 21:00 02/11/25 21:25 Atorvastatin 10 Mg Tablet PO 10 mg HS KELIN Administration Bisacodyl 10 mg 02/09/25 09:36 02/12/25 12:03 Bisacodyl 5 Mg Tablet Ec PO 10 mg HS PRN Administration Constipation Buspirone HCl 10 mg 02/09/25 13:00 02/12/25 17:26 Buspirone Hcl 10 Mg Tablet PO 10 mg TID KELIN Administration Calamine 1 applic 02/12/25 09:00 02/12/25 09:44 Calamine Lotion 120 Ml Bottle TOPICAL 1 applic QAM KELIN Administration Cefdinir 300 mg 02/12/25 21:00 Cefdinir 300 Mg Capsule PO Q12HR KELIN Clonazepam 0.5 mg 02/09/25 09:40 02/12/25 09:41 Clonazepam (*Crx) 0.5 Mg Tablet PO 0.5 mg Q12HR KELIN Administration Clonidine HCl 1 patch 02/11/25 09:00 02/11/25 10:03 Clonidine 0.1 Mg/24 Hr Patch TRANSDERM 1 patch WEEKLY KELIN Administration Docusate Sodium 200 mg 02/09/25 17:00 02/12/25 17:27 Docusate Sodium 100 Mg Capsule PO 200 mg BID KELIN Administration Famciclovir 250 mg 02/09/25 10:15 02/12/25 09:41 Famciclovir 250 Mg Tablet PO 250 mg Q12HR KELIN Administration Famotidine 10 mg 02/10/25 09:00 02/12/25 09:43 Famotidine 10 Mg Tablet PO 10 mg DAILY KELIN Administration Fluticasone Propionate 1 spray 02/09/25 09:00 02/12/25 09:44 Fluticasone Propionate 0.05% Na Spr 16 Gm Btl (*Bkc) NASAL 1 spray DAILY KELIN Administration Glucose 15 gm 02/08/25 21:08 Glucose Oral Gel 15 Gm Of Glucse In 37.5 Gm Tube PO PRN PRN Hypoglycemia Protocol Guaifenesin 1,200 mg 02/09/25 09:50 02/12/25 09:41 Guaifenesin 12 Hr 600 Mg Tabcr PO 1,200 mg Q12HR KELIN Administration Hydralazine HCl 50 mg 02/11/25 14:00 02/12/25 14:43 Hydralazine Hcl 50 Mg Tablet PO 50 mg Q8HR KELIN Administration Dextrose 1,000 mls @ 100 mls/hr 02/08/25 21:08 Dextrose 5% 1,000 Ml IVPB PRN PRN Hypoglycemia Protocol Irbesartan 300 mg 02/10/25 09:00 02/12/25 09:43 Irbesartan 150 Mg Tablet PO 300 mg QAM KELIN Administration Isosorbide Mononitrate 30 mg 02/10/25 09:00 02/12/25 09:43 Isosorbide Mononitrate 30 Mg Tab.Er.24h PO 30 mg DAILY KELIN Administration Lactulose 30 gm 02/09/25 17:00 02/12/25 17:35 Lactulose 20 Gm/30 Ml Udc PO 30 gm BID KELIN Administration Lidocaine 2 patch 02/09/25 21:00 02/11/25 21:26 Lidocaine 5% Patch TOPICAL 2 patch HS KELIN Administration Magnesium Citrate 300 ml 02/09/25 09:36 Magnesium Citrate 300 Ml Btl PO DAILY PRN constipation Magnesium Hydroxide 30 ml 02/09/25 09:36 Magnesium Hydroxide Susp 30 Ml Udc PO DAILY PRN constipation Memantine 5 mg 02/09/25 17:00 02/12/25 17:27 Memantine 5 Mg Tablet PO 5 mg BID KELIN Administration Metoprolol Succinate 300 mg 02/09/25 09:00 02/09/25 10:58 Metoprolol Succinate Ext Rel 100 Mg Tabcr PO 300 mg QAM KELIN Administration Ondansetron HCl 4 mg 02/08/25 21:05 Ondansetron Inj 4 Mg/2 Ml Vial IV PUSH Q4H PRN Nausea Ondansetron HCl 4 mg 02/09/25 13:00 02/12/25 17:27 Ondansetron Hcl Odt 4 Mg Tablet PO 4 mg TID KELIN Administration Oxycodone/Acetaminophen 1 tablet 02/09/25 09:36 02/12/25 17:26 Oxycodone/Acetaminophen (*Crx) 5-325 Mg Tablet PO 1 tablet Q8H PRN Administration Pain Rated 7-10 Polyethylene Glycol 17 gm 02/09/25 09:36 02/12/25 12:03 Polyethylene Glycol 3350 17 Gm Powd.Pack PO 17 gm DAILY PRN Administration Constipation Pregabalin 150 mg 02/09/25 17:00 02/12/25 17:26 Pregabalin (*Crx) 75 Mg Capsule PO 150 mg BID KELIN Administration Primidone 200 mg 02/11/25 21:00 02/12/25 09:54 Primidone 50 Mg Tablet BY MOUTH 200 mg Q12HR KELIN Administration Rivaroxaban 20 mg 02/09/25 17:00 02/12/25 17:27 Rivaroxaban 20 Mg Tablet PO 20 mg DAILY@1700 KELIN Administration Spironolactone 25 mg 02/10/25 09:00 02/12/25 09:41 Spironolactone 25 Mg Tablet PO 25 mg DAILY KELIN Administration Tizanidine HCl 2 mg 02/09/25 17:00 02/12/25 17:26 Tizanidine Hcl 2 Mg Tablet PO 2 mg BID KELIN Administration Venlafaxine HCl 37.5 mg 02/10/25 09:00 02/12/25 09:43 Venlafaxine Hcl Xr 37.5 Mg Cap PO 37.5 mg DAILY KELIN Administration Zolpidem Tartrate 5 mg 02/09/25 21:00 02/11/25 21:26 Zolpidem Tartrate (*Crx) 5 Mg Tablet PO 5 mg HS KELIN Administration Radiology Results: ITS Impressions Head CT 02/08/25 15:19 IMPRESSION: No acute intracranial process. Chest X-Ray 02/08/25 15:40 IMPRESSION: Left basilar atelectasis versus pneumonia Labs Labs: Laboratory Results - last 24 hr 02/09/25 02/11/25 02/12/25 05:51 20:42 00:03 WBC RBC Hgb Hct MCV MCH MCHC RDW Plt Count MPV Sodium 127 L Potassium Chloride Carbon Dioxide Anion Gap BUN Creatinine Estim Creat Clear Calc Estimated GFR Glucose POC Capillary Glucose 123 H Calcium Phosphorus Magnesium Albumin Urine Osmolality 106 02/12/25 02/12/25 02/12/25 04:50 07:51 12:46 WBC 5.4 RBC 3.47 L Hgb 9.5 L Hct 30.3 L MCV 87.3 MCH 27.4 MCHC 31.4 L RDW 15.7 H Plt Count 183 MPV 11.0 H Sodium 127 L Potassium 4.2 Chloride 94 L Carbon Dioxide 28 Anion Gap 5 BUN 10 Creatinine 0.61 L Estim Creat Clear Calc 74 Estimated GFR > 60 Glucose 94 POC Capillary Glucose 89 187 H Calcium 8.3 L Phosphorus 3.5 Magnesium 1.9 Albumin 3.2 L Urine Osmolality 02/12/25 17:11 WBC RBC Hgb Hct MCV MCH MCHC RDW Plt Count MPV Sodium Potassium Chloride Carbon Dioxide Anion Gap BUN Creatinine Estim Creat Clear Calc Estimated GFR Glucose POC Capillary Glucose 115 H Calcium Phosphorus Magnesium Albumin Urine Osmolality
[2025-02-12] MEDS: CEFDINIR 300 MG CAPSULE PO (21:17)
[2025-02-12] MEDS: ZOLPIDEM TARTRATE (*CRX) 5 MG TABLET PO (21:18)
[2025-02-12] MEDS: ATORVASTATIN 10 MG TABLET PO (21:18)
[2025-02-12] MEDS: LIDOCAINE 5% PATCH 2 PATCH TOPICAL (21:19)
[2025-02-13] MEDS: oxyCODONE/ACETAMINOPHEN (*CRX) 5-325 MG TABLET 1 TABLET PO ×2 (02:13→10:23)
[2025-02-13 04:53] LABS: Hematocrit 31.5 % (37.0-47.0); Hemoglobin 9.7 g/dL (12.0-15.0); Mean Corpuscular HGB Conc 30.8 g/dl (32-36); Mean Corpuscular Hemoglobin 27.4 pg (26-34); Mean Corpuscular Volume 89.0 fl (80-100); Platelet Count Result 179 k/mm3 (150-375); Red Blood Count 3.54 M/mm3 (4.2-5.4); White Blood Count 5.6 K/mm3 (4.5-10.0)
[2025-02-13 05:07] VITALS: BP 182/61; PULSE 62; RESP 16; TEMP 36.3; O2SAT 100
[2025-02-13 05:15] LABS: Albumin Level 3.4 g/dL (3.5-5.1); Anion Gap 7 mmol/L (4-12); Blood Urea Nitrogen 9 mg/dL (7-17); Calcium 8.7 mg/dL (8.4-10.2); Carbon Dioxide 28 mmol/L (22-30); Chloride 98 mmol/L (98-107); Estimated CRCL calculation 76 ml/min; Estimated Glomerular Filt Rate > 60; Glucose 101 mg/dL (65-110); Magnesium 1.9 mg/dL (1.6-2.3); Potassium 4.3 mmol/L (3.4-5.0); Sodium 133 mmol/L (137-145)
[2025-02-13 08:00] VITALS: O2SAT 100
[2025-02-13] MEDS: CEFDINIR 300 MG CAPSULE PO (08:34)
[2025-02-13] MEDS: SODIUM CHLORIDE 500 MG TABLET PO (08:34)
[2025-02-13] MEDS: FAMOTIDINE 10 MG TABLET PO (08:35)
[2025-02-13] MEDS: clonazePAM (*CRX) 0.5 MG TABLET PO (08:35)
[2025-02-13] MEDS: guaiFENesin 12 HR 600 MG TABCR 1200 MG PO (08:35)
[2025-02-13] MEDS: DOCUSATE SODIUM 100 MG CAPSULE 200 MG PO (08:35)
[2025-02-13] MEDS: FAMCICLOVIR 250 MG TABLET PO (08:35)
[2025-02-13] MEDS: IRBESARTAN 150 MG TABLET 300 MG PO (08:36)
[2025-02-13] MEDS: ISOSORBIDE MONONITRATE 30 MG TAB.ER.24H PO (08:36)
[2025-02-13] MEDS: PRIMIDONE 50 MG TABLET 200 MG BY MOUTH (08:37)
[2025-02-13] MEDS: MEMANTINE 5 MG TABLET PO (08:37)
[2025-02-13] MEDS: PREGABALIN (*CRX) 75 MG CAPSULE 150 MG PO (08:37)
[2025-02-13] MEDS: VENLAFAXINE HCL XR 37.5 MG CAP PO (08:37)
[2025-02-13] MEDS: SPIRONOLACTONE 25 MG TABLET PO (08:37)
[2025-02-13] MEDS: TIZANIDINE HCL 2 MG TABLET PO (08:37)
[2025-02-13] MEDS: ONDANSETRON HCL ODT 4 MG TABLET PO ×2 (08:37→12:46)
[2025-02-13] MEDS: FLUTICASONE PROPIONATE 0.05% NA SPR 16 GM BTL (*BKC) 1 SPRAY NASAL (08:38)
[2025-02-13] MEDS: CALAMINE LOTION 120 ML BOTTLE 1 APPLIC TOPICAL (08:38)
[2025-02-13 10:08] LABS: Osmolality, Serum 241 mOsmol/kg (280-301)
--- NOTE | 2025-02-13 11:09 | P.PNNP_ITS ---
Progress Note: A&P Assessment and Plan (1) Hyponatremia: Code(s): E87.1 - Hypo-osmolality and hyponatremia Status: Acute Assessment and Plan: the patient has chronic hyponatremia. This is likely due to multiple issues and occluding pulmonary disease, proton pump inhibitor, poor osmolar intake with more generous fluid intake and in the past narcotics and a new development with the multiple cerebellar strokes.. Her baseline sodium seems to run in the high 120s and the low 130s. Sodium level up and down. her sodium has gradually increased over the last couple of days from 123-127 and now to 133. She is on fluid restriction. Will go ahead and add sodium chloride. Okay for discharge from the kidney standpoint (2) AMS (altered mental status): Code(s): R41.82 - Altered mental status, unspecified Status: Acute Assessment and Plan: This seems at baseline right now (3) Obstructive sleep apnea: Code(s): G47.33 - Obstructive sleep apnea (adult) (pediatric) Status: Acute Assessment and Plan: the patient does not tolerate a CPAP mask (4) HTN (hypertension): Qualifiers: Hypertension type: essential hypertension Qualified Code(s): I10 - Essential (primary) hypertension Code(s): I10 - Essential (primary) hypertension Status: Chronic Assessment and Plan: her blood pressure is mostly from 110-150. She is on amlodipine, irbesartan, clonidine patch and hydralazine off the spironolactone Will increase hydralazine to 70 (5) HLD (hyperlipidemia): Qualifiers: Hyperlipidemia type: unspecified Qualified Code(s): E78.5 - Hyperlipidemia, unspecified Code(s): E78.5 - Hyperlipidemia, unspecified Status: Chronic Assessment and Plan: the patient is on atorvastatin (6) CVA (cerebral vascular accident): Code(s): I63.9 - Cerebral infarction, unspecified Status: Acute Assessment and Plan: No current issues. Neurology saw the patient in the past. Subjective Date/time seen: 02/13/25 11:09 Interval history: Pepper is feeling okay today. She is eager for discharge. She was going to go home yesterday but she had and had a bowel movement. She did have 1 overnight so she is ready to go and hopes to be discharged today. Exam Narrative: WDWN in NAD skin no rash or subQ nodules head ncat lungs clear to auscultate cor reg no rub or gallop abd BS+ nontender and soft ext no edema or cyanosis Objective Data Vital Signs Vital Signs: Vital Signs - 24 hr 02/12/25 13:32 02/12/25 20:00 02/12/25 20:16 Temperature 97.9 F 98.0 F Pulse Rate 59 L 71 Respiratory Rate 16 12 Blood Pressure 110/47 L 135/48 L Pulse Oximetry 98 91 95 Oxygen Delivery Nasal Cannula Oxygen Flow Rate 2 Fraction of Inspired Oxygen 02/12/25 21:49 02/13/25 05:07 Temperature 97.3 F L Pulse Rate 62 62 Respiratory Rate 20 16 Blood Pressure 182/61 H Pulse Oximetry 91 100 Oxygen Delivery Room Air Oxygen Flow Rate Fraction of Inspired Oxygen 21 Intake/Output Intake/Output: Intake & Output 02/10/25 02/11/25 02/12/25 02/13/25 23:59 23:59 23:59 23:59 Intake Total 1070 1160 1350 440 Output Total 750 1700 1450 500 Balance 320 -540 -100 -60 Meds/Results Medications: Active Medications Generic Name Dose Route Start Last Admin Trade Name Freq PRN Reason Stop Dose Admin Albuterol/Ipratropium 3 ml 02/12/25 14:09 Ipratropium 0.5 Mg/Albuterol Sulfate 2.5 Mg Ampul.Neb 3 Ml INHALATION Q6HRT PRN Wheezing Amlodipine Besylate 10 mg 02/10/25 09:00 02/13/25 08:34 Amlodipine Besylate 10 Mg Tablet PO 10 mg DAILY KELIN Administration Artificial Tears 2 drop 02/09/25 09:59 Artificial Tears Ophth Soln 15 Ml Bottle EACH EYE BID PRN dry eye(s) Atorvastatin Calcium 10 mg 02/09/25 21:00 02/12/25 21:18 Atorvastatin 10 Mg Tablet PO 10 mg HS KELIN Administration Bisacodyl 10 mg 02/09/25 09:36 02/12/25 12:03 Bisacodyl 5 Mg Tablet Ec PO 10 mg HS PRN Administration Constipation Buspirone HCl 10 mg 02/09/25 13:00 02/13/25 10:23 Buspirone Hcl 10 Mg Tablet PO 10 mg TID KELIN Administration Calamine 1 applic 02/12/25 09:00 02/13/25 08:38 Calamine Lotion 120 Ml Bottle TOPICAL 1 applic QAM KELIN Administration Cefdinir 300 mg 02/12/25 21:00 02/13/25 08:34 Cefdinir 300 Mg Capsule PO 300 mg Q12HR KELIN Administration Clonazepam 0.5 mg 02/09/25 09:40 02/13/25 08:35 Clonazepam (*Crx) 0.5 Mg Tablet PO 0.5 mg Q12HR KELIN Administration Clonidine HCl 1 patch 02/11/25 09:00 02/11/25 10:03 Clonidine 0.1 Mg/24 Hr Patch TRANSDERM 1 patch WEEKLY KELIN Administration Docusate Sodium 200 mg 02/09/25 17:00 02/13/25 08:35 Docusate Sodium 100 Mg Capsule PO 200 mg BID KELIN Administration Famciclovir 250 mg 02/09/25 10:15 02/13/25 08:35 Famciclovir 250 Mg Tablet PO 250 mg Q12HR KELIN Administration Famotidine 10 mg 02/10/25 09:00 02/13/25 08:35 Famotidine 10 Mg Tablet PO 10 mg DAILY KELIN Administration Fluticasone Propionate 1 spray 02/09/25 09:00 02/13/25 08:38 Fluticasone Propionate 0.05% Na Spr 16 Gm Btl (*Bkc) NASAL 1 spray DAILY KELIN Administration Glucose 15 gm 02/08/25 21:08 Glucose Oral Gel 15 Gm Of Glucse In 37.5 Gm Tube PO PRN PRN Hypoglycemia Protocol Guaifenesin 1,200 mg 02/09/25 09:50 02/13/25 08:35 Guaifenesin 12 Hr 600 Mg Tabcr PO 1,200 mg Q12HR KELIN Administration Hydralazine HCl 50 mg 02/11/25 14:00 02/13/25 05:57 Hydralazine Hcl 50 Mg Tablet PO 50 mg Q8HR KELIN Administration Dextrose 1,000 mls @ 100 mls/hr 02/08/25 21:08 Dextrose 5% 1,000 Ml IVPB PRN PRN Hypoglycemia Protocol Irbesartan 300 mg 02/10/25 09:00 02/13/25 08:36 Irbesartan 150 Mg Tablet PO 300 mg QAM KELIN Administration Isosorbide Mononitrate 30 mg 02/10/25 09:00 02/13/25 08:36 Isosorbide Mononitrate 30 Mg Tab.Er.24h PO 30 mg DAILY KELIN Administration Lactulose 30 gm 02/09/25 17:00 02/13/25 08:36 Lactulose 20 Gm/30 Ml Udc PO Not Given BID [facility] Lidocaine 2 patch 02/09/25 21:00 02/12/25 21:19 Lidocaine 5% Patch TOPICAL 2 patch HS KELIN Administration Magnesium Citrate 300 ml 02/09/25 09:36 Magnesium Citrate 300 Ml Btl PO DAILY PRN constipation Magnesium Hydroxide 30 ml 02/09/25 09:36 Magnesium Hydroxide Susp 30 Ml Udc PO DAILY PRN constipation Memantine 5 mg 02/09/25 17:00 02/13/25 08:37 Memantine 5 Mg Tablet PO 5 mg BID KELIN Administration Metoprolol Succinate 300 mg 02/09/25 09:00 02/09/25 10:58 Metoprolol Succinate Ext Rel 100 Mg Tabcr PO 300 mg QAM [facility] Administration Ondansetron HCl 4 mg 02/08/25 21:05 Ondansetron Inj 4 Mg/2 Ml Vial IV PUSH Q4H PRN Nausea Ondansetron HCl 4 mg 02/09/25 13:00 02/13/25 08:37 Ondansetron Hcl Odt 4 Mg Tablet PO 4 mg TID [facility] Administration Oxycodone/Acetaminophen 1 tablet 02/09/25 09:36 02/13/25 10:23 Oxycodone/Acetaminophen (*Crx) 5-325 Mg Tablet PO 1 tablet Q8H PRN Administration Pain Rated 7-10 Polyethylene Glycol 17 gm 02/09/25 09:36 02/12/25 12:03 Polyethylene Glycol 3350 17 Gm Powd.Pack PO 17 gm DAILY PRN Administration Constipation Pregabalin 150 mg 02/09/25 17:00 02/13/25 08:37 Pregabalin (*Crx) 75 Mg Capsule PO 150 mg BID KELIN Administration Primidone 200 mg 02/11/25 21:00 02/13/25 08:37 Primidone 50 Mg Tablet BY MOUTH 200 mg Q12HR KELIN Administration Rivaroxaban 20 mg 02/09/25 17:00 02/12/25 17:27 Rivaroxaban 20 Mg Tablet PO 20 mg DAILY@1700 KELIN Administration Sodium Chloride 500 mg 02/13/25 08:00 02/13/25 08:34 Sodium Chloride 500 Mg Tablet PO 500 mg BIDWM KELIN Administration Spironolactone 25 mg 02/10/25 09:00 02/13/25 08:37 Spironolactone 25 Mg Tablet PO 25 mg DAILY KELIN Administration Tizanidine HCl 2 mg 02/09/25 17:00 02/13/25 08:37 Tizanidine Hcl 2 Mg Tablet PO 2 mg BID KELIN Administration Venlafaxine HCl 37.5 mg 02/10/25 09:00 02/13/25 08:37 Venlafaxine Hcl Xr 37.5 Mg Cap PO 37.5 mg DAILY KELIN Administration Zolpidem Tartrate 5 mg 02/09/25 21:00 02/12/25 21:18 Zolpidem Tartrate (*Crx) 5 Mg Tablet PO 5 mg HS KELIN Administration Radiology Results: ITS Impressions Head CT 02/08/25 15:19 IMPRESSION: No acute intracranial process. Chest X-Ray 02/08/25 15:40 IMPRESSION: Left basilar atelectasis versus pneumonia Labs Labs: Laboratory Results - last 24 hr 02/09/25 02/12/25 02/12/25 00:00 12:46 17:11 WBC RBC Hgb Hct MCV MCH MCHC RDW Plt Count MPV Sodium Potassium Chloride Carbon Dioxide Anion Gap BUN Creatinine Estim Creat Clear Calc Estimated GFR Glucose POC Capillary Glucose 187 H 115 H Serum Osmolality 241 L Calcium Phosphorus Magnesium Albumin 02/12/25 02/13/25 02/13/25 20:14 04:37 08:22 WBC 5.6 RBC 3.54 L Hgb 9.7 L Hct 31.5 L MCV 89.0 MCH 27.4 MCHC 30.8 L RDW 16.1 H Plt Count 179 MPV 10.2 Sodium 133 L Potassium 4.3 Chloride 98 Carbon Dioxide 28 Anion Gap 7 BUN 9 Creatinine 0.59 L Estim Creat Clear Calc 76 Estimated GFR > 60 Glucose 101 POC Capillary Glucose 152 H 75 Serum Osmolality Calcium 8.7 Phosphorus 4.0 Magnesium 1.9 Albumin 3.4 L
[2025-02-13 11:58] VITALS: BP 114/44
--- NOTE | 2025-02-13 12:45 | PM.DS ---
DS: Admitting Diagnosis Discharge Date 02/13/25 Admitting Diagnosis AMS DS: Discharge Diagnosis Discharge Diagnosis (1) Acute hyponatremia: Code(s): E87.1 - Hypo-osmolality and hyponatremia Status: Acute (2) Atrial fibrillation with RVR: Code(s): I48.91 - Unspecified atrial fibrillation Status: Acute (3) Diabetes: Code(s): E11.9 - Type 2 diabetes mellitus without complications Status: Acute (4) CVA (cerebral vascular accident): Code(s): I63.9 - Cerebral infarction, unspecified Status: Acute (5) Acute UTI: Code(s): N39.0 - Urinary tract infection, site not specified Status: Acute Plan 74 y/o female presented with weakness and is found to have hyponatremia most likely cause of her lethargy, upon arrival patient sodium was 113 and it suddenly eric to 118 without any intervention, possible error in drawing or lab, however her baseline sodium is 130s, patient is seen by table games shift manager occluding pulmonary disease, proton pump inhibitor, poor osmolar intake with more generous fluid intake and recent multiple cerebellar storkes, because of sudden rise in her sodium, plan is to monitor and trend her sodium, patient is treated with fluid restriction and her sodium is trending up to 126 compared to 118 upon arrival, today patient was seen by Dr. Westfall, continued fluid restriction and added 3% sodium chloride, will monitor sodium levels, patient remains clinically stable. Today patient was seen by her Posting Clerk patient okay to discharge back [place] with instruction to restrict fluids to 1500cc per day, and salt tablet 500mg BID, patient denies dysuria, frequency of urination, fever or chill, her white counts are normal, her urine culture is growing gram negative bacilli isolated patient has been treated with ceftriaxone for 4 days, and plan was to discharge to back to [place] as recommended by the table games shift manager, however patient want to stay one more day in the hospital as patient not happy service she is receiving at the [place]. will monitor patient overnight will discharge to [place] tomorrow. patient is alert and oriented and her nurse is present in the room. DS: Summary Hospital Course Hospital Course: 74 y/o female presented with weakness and is found to have hyponatremia most likely cause of her lethargy, upon arrival patient sodium was 113 and it suddenly eric to 118 without any intervention, possible error in drawing or lab, however her baseline sodium is 130s, patient is seen by table games shift manager occluding pulmonary disease, proton pump inhibitor, poor osmolar intake with more generous fluid intake and recent multiple cerebellar storkes, because of sudden rise in her sodium, plan is to monitor and trend her sodium, patient is treated with fluid restriction and her sodium is trending up to 126 compared to 118 upon arrival, today patient was seen by Dr. Westfall, continued fluid restriction and added 3% sodium chloride, will monitor sodium levels, patient remains clinically stable. patient was seen by her Posting Clerk patient okay to discharge back [place] with instruction to restrict fluids to 1500cc per day, and salt tablet 500mg BID, patient denies dysuria, frequency of urination, fever or chill, her white counts are normal, her urine culture is growing gram negative bacilli isolated patient has been treated with ceftriaxone for 4 days, and plan was to discharge to back to [place] as recommended by the table games shift manager, however patient want to stay one more day in the hospital as patient not happy service she is receiving at the [place]. will monitor patient overnight will discharge to [place] tomorrow. patient is alert and oriented and her nurse is present in the room. patient is now her baseline and clinically stable will discharge today. Time Spent with Patient Time attestation: Total time spent providing and/or coordinating discharge services: Exam Narrative: Morbidly obese Patient is comfortable, NAD HEENT: eyes are clear and none icteric LUNGS:CTA HEART: RR S1S2 ABD: BS+, Soft and nontender Lower extremities: no edema SKIN: nonjaundiced Neuro: grossly intact. DS: Data Data Completed and Pending Labs on day of discharge: Labs from last 24 hours 02/13/25 02/13/25 02/13/25 11:59 08:22 04:37 WBC 5.6 RBC 3.54 L Hgb 9.7 L Hct 31.5 L MCV 89.0 MCH 27.4 MCHC 30.8 L RDW 16.1 H Plt Count 179 MPV 10.2 Sodium 133 L Potassium 4.3 Chloride 98 Carbon Dioxide 28 Anion Gap 7 BUN 9 Creatinine 0.59 L Estim Creat Clear Calc 76 Estimated GFR > 60 Glucose 101 POC Capillary Glucose 133 H 75 Serum Osmolality Calcium 8.7 Phosphorus 4.0 Magnesium 1.9 Albumin 3.4 L 02/12/25 02/12/25 02/12/25 20:14 17:11 12:46 WBC RBC Hgb Hct MCV MCH MCHC RDW Plt Count MPV Sodium Potassium Chloride Carbon Dioxide Anion Gap BUN Creatinine Estim Creat Clear Calc Estimated GFR Glucose POC Capillary Glucose 152 H 115 H 187 H Serum Osmolality Calcium Phosphorus Magnesium Albumin 02/09/25 00:00 WBC RBC Hgb Hct MCV MCH MCHC RDW Plt Count MPV Sodium Potassium Chloride Carbon Dioxide Anion Gap BUN Creatinine Estim Creat Clear Calc Estimated GFR Glucose POC Capillary Glucose Serum Osmolality 241 L Calcium Phosphorus Magnesium Albumin Preliminary micro results at discharge 02/08/25 16:04 - Preliminary Urine Clean Catch Klebsiella pneumoniae 02/08/25 18:46 Blood Culture - Preliminary Blood 02/08/25 18:48 Blood Culture - Preliminary Blood Discharge Plan Discharge Attending physician on discharge: Linda Gomez Consulting providers: Daniel Westfall; Daniel Raines; Elvre Jamil; Arpan Muñoz Discharging Clinician: Kuldeep Dee Patient Disposition: [place] Nursing Home/Asst Living Activity: as tolerated Diet: heart healthy Discharge Instructions: Please keep fluids restriction to 1500cc per day, patient to follow up with table games shift manager and primary care provider as schedule. Patient Instructions: Antibiotic Form, Rivaroxaban (By mouth), Hyponatremia (GEN), Bradycardia (GEN), Fluid Restriction (GEN), Chronic Respiratory Failure (GEN) Patient Language: Luxembourger Stand Alone Forms: General Discharge Information Follow-up/Referrals: Daniel Westfall MD [Physician] - UNKNOWN,DOCTOR [Primary Care Provider] - Discharge Medications: New ipratropium-albuterol 0.5 mg-3 mg(2.5 mg base)/3 mL Solution For Nebulization 3 ml inhalation Q6HRT PRN (Reason: Wheezing) Qty: 30 0RF hydralazine 50 mg Tablet 50 mg PO Q8HR Qty: 30 0RF cefdinir 300 mg capsule 300 mg PO Q12H Qty: 10 0RF Patient Comments: Order is for 02/16/25-02/26/25 Continued docusate sodium 100 mg Tablet 200 mg PO BID isosorbide mononitrate 30 mg tablet extended release 24 hr 30 mg PO DAILY lidocaine [Lidoderm] 5 % adhesive patch,medicated 2 patch topical HS Patient Comments: left shoulder Rx Instructions: leave on most painful area for up to 12 hrs magnesium hydroxide [Gentle Laxative (mag hydrox)] 400 mg/5 mL suspension 30 ml PO DAILY PRN (Reason: constipation) Xarelto 20 mg Tablet 20 mg PO DAILY@1700 Qty: 60 0RF oxycodone-acetaminophen 5-325 mg Tablet 1 tablet PO Q8H PRN (Reason: Pain Rated 7-10) Qty: 10 0RF irbesartan 150 mg Tablet 300 mg PO QAM Qty: 30 0RF primidone 50 mg tablet See Rx Instructions .ROUTE .COMPLEX Rx Instructions: 200 MG PO BID; spironolactone 25 mg tablet 25 mg PO DAILY venlafaxine 37.5 mg capsule,extended release 24hr 37.5 mg PO DAILY zolpidem 5 mg tablet 5 mg PO HS buspirone 10 mg tablet 10 mg PO Q12H clonazepam 0.5 mg tablet 0.5 mg PO Q12H magnesium citrate Solution 300 ml PO DAILY PRN (Reason: constipation) lactulose [Enulose] 10 gram/15 mL solution 30 g PO BID famciclovir 250 mg tablet 250 mg PO Q12H atorvastatin [Lipitor] 10 mg tablet 10 mg PO HS sennosides-docusate sodium [Senna Plus] 8.6-50 mg tablet 2 tab-cap PO BID Artificial Tears(pvalch-povid) 0.5-0.6 % drops 2 drp EACH EYE BID PRN (Reason: dry eye(s)) clonidine 0.1 mg/24 hr Patch Weekly 1 patch transdermal WEEKLY Qty: 4 0RF tizanidine 2 mg tablet 2 mg PO Q12H famotidine [Heartburn Relief (famotidine)] 10 mg Tablet 10 mg PO DAILY fluticasone propionate 50 mcg/actuation [place],Suspension 1 spray INTRANASAL DAILY ondansetron HCl 4 mg tablet 4 mg PO TID amlodipine 10 mg tablet 10 mg PO DAILY bisacodyl [Dulcolax (bisacodyl)] 5 mg Tablet,Delayed Release (Dr/Ec) 10 mg PO HS PRN (Reason: Constipation) memantine 5 mg tablet 5 mg PO BID guaifenesin [Mucinex] 1,200 mg Tablet Extended Release 12hr 1,200 mg PO Q12H pregabalin [Lyrica] 150 mg Capsule 150 mg PO BID Qty: 14 0RF No Action polyethylene glycol 3350 17 gram/dose powder 17 g PO DAILY polyvinyl alcohol [Artificial Tears (polyvin alc)] 1.4 % drops 2 drp EACH EYE BID sodium chloride 1,000 mg tablet,soluble 1,000 mg PO BID furosemide 20 mg Tablet 20 mg PO BID 30 Days Qty: 60 0RF Date of admission: 02/09/25 07:48 Primary Care Provider: UNKNOWN,DOCTOR Admitting Provider: Linda Gomez Attending physician on admission: Kuldeep Dee Condition: Stable
[2025-02-13] MEDS: ARTIFICIAL TEARS OPHTH SOLN 15 ML BOTTLE 2 DROP EACH EYE (12:49)
== END 2025-02-13 14:50 | DRG 641 ==
LOC: ANHED 15:22 → ANHIMU 21:46 → ANH2MED 02-12 08:22 → ANHIMU 02-14 15:28
PROVIDERS: Emergency Medicine; Internal Medicine Nephrology; Admitting Provider General Practice; Emergency Provider Family Medicine; Visit Provider Family Medicine
DX: E87.1 Hypo-osmolality and hyponatremia (principal); N39.0 Urinary tract infection, site not specified; J96.11 Chronic respiratory failure with hypoxia; B96.1 Klebsiella pneumoniae [K. pneumoniae] as the cause of diseases classified elsewhere; E78.5 Hyperlipidemia, unspecified; I10 Essential (primary) hypertension; G47.33 Obstructive sleep apnea (adult) (pediatric); F31.9 Bipolar disorder, unspecified; I48.91 Unspecified atrial fibrillation; R62.7 Adult failure to thrive; E66.01 Morbid (severe) obesity due to excess calories; D64.9 Anemia, unspecified; Z79.01 Long term (current) use of anticoagulants; Z99.81 Dependence on supplemental oxygen; Z86.73 Personal history of transient ischemic attack (TIA), and cerebral infarction without residual deficits; Z89.612 Acquired absence of left leg above knee; Z96.611 Presence of right artificial shoulder joint; Z90.49 Acquired absence of other specified parts of digestive tract; Z96.652 Presence of left artificial knee joint; Z90.710 Acquired absence of both cervix and uterus; Z68.39 Body mass index [BMI] 39.0-39.9, adult
CPT/HCPCS: 36415; 36600; 70450; 71045; 80048; 80053; 80069; 81001; 82805; 82948; 83605; 83735; 83930; 83935; 84295; 85018; 85025; 85027; 87040; 87086; 93005; 96361; 96365; 96367; 96375; 99285; A9270; G0378; J0613; J0696; J1815; J2597; J3475; J7030; J7060; J7070; J7131

== ENCOUNTER 2025-02-19 12:37 | Inpatient (IN) | payer MEDICARE, MEDICAID, SELFPAY ==
[2025-02-19] VITALS (16 sets, daily range): BP systolic 113–179; BP diastolic 44–71; PULSE 35–42; RESP 12–17; TEMP 36.4–36.7; O2SAT 96–100; BMI 40.1
--- NOTE | ~2025-02-19 | XR_ITS ---
XR chest 1V portable 02/22/2025 14:47 Indication: Dyspnea Procedure: AP portable chest Comparison: 02/19/2025 and 02/08/2025 Findings: Heart size normal. Bilateral perihilar interstitial infiltrates. No pleural effusion or pne umothorax. No acute osseous abnormality. There is atherosclerosis of the aorta. Impression: 1: Bilateral perihilar infiltrates which may represent edema or pneumonia. Reviewed, dictated and finalized at location B. Impression: 1: Bilateral perihilar infiltrates which may represent edema or pneumonia.
--- NOTE | ~2025-02-19 | XR_ITS ---
Portable chest x-ray Comparison: 02/28/2025 Clinical History: Shortness of breath Findings: Possible minimal central congestive change, improved from prior exam. Cardiomediastinal s ilhouette is stable. Bones and soft tissues are unremarkable. Impression: Possible minimal central congestive change, improved from prior exam. Reviewed, dictated and finalized at location . Impression: Possible minimal central congestive change, improved from prior exam.
--- NOTE | ~2025-02-19 | XR_ITS ---
EXAMINATION: XR chest 1V portable 02/26/2025 16:08 INDICATION: Shortness of breath and cough PROCEDURE: AP portable chest COMPARISON: Comparison to multiple prior studies sequentially, with oldest reviewed study dated 02/08. FINDINGS: The lungs are clear. The cardiomediastinal silhouette is within normal limits. There are no pleural effusions. There is no pneumothorax suspected. IMPRESSION: 1: NO ACUTE CARDIOPULMONARY DISEASE. Reviewed, dictated and finalized at location A.
--- NOTE | ~2025-02-19 | XR_ITS ---
XR chest 1V portable 02/28/2025 11:13 Indication: Cough Procedure: AP portable chest Comparison: Comparison to multiple prior studies sequentially, with oldest reviewed study dated 02/19. Findings: Cardiomegaly with developing pulmonary edema. No pleural effusion. Left-sided stomach. No p neumothorax. No acute osseous abnormality. Impression: 1: Cardiomegaly with developing pulmonary edema. Reviewed, dictated and finalized at location A. Impression: 1: Cardiomegaly with developing pulmonary edema.
--- NOTE | ~2025-02-19 | XR_ITS ---
EXAMINATION: XR chest 1V portable 02/23/2025 08:58 INDICATION: CHF PROCEDURE: AP portable chest COMPARISON: Comparison to multiple prior studies sequentially, with oldest reviewed study dated 01/18. FINDINGS: Mild interstitial edema. Cardiomegaly. There are no pleural effusions. There is no pneumot horax suspected. IMPRESSION: 1: Cardiomegaly with mild interstitial edema. Reviewed, dictated and finalized at location []
--- NOTE | ~2025-02-19 | XR_ITS ---
CHEST RADIOGRAPH, PA AND LATERAL CLINICAL HISTORY: lung pain, ASTHMA, CP X 3 DAYS . COMPARISON: 02/08/2025 TECHNIQUE: PA and lateral views of the chest. FINDINGS Examination is somewhat limited secondary to patient rotation (towards the right side). Despite this limitation, significant peribronchial thickening is identified within the bilateral pulmonary jai, c onsistent with patient's history. Increased interstitial markings are identified bilaterally, findings suggesting mild pulmonary vascul ar congestion. Dense opacification of the left hemidiaphragm for which an underlying effusion is suspected. The remainder of the lungs are clear. IMPRESSION: Significant peribronchial thickening with mild pulmonary vascular congestion and a left-sided pleural effusion. Reviewed, dictated and finalized at location A. IMPRESSION: Significant peribronchial thickening with mild pulmonary vascular congestion an d a left-sided pleural effusion.
--- NOTE | 2025-02-19 12:41 | ECG_ITS ---
Test Date: 2025-02-19 12:45:08 Measurements Intervals [place] Rate: 36 P: 0 [place]: 0 QRS: -14 QRSD: 105 T: -4 QT: 530 QTc: 414 Interpretive Statements SINUS BRADYCARDIA SECOND DEGREE TYPE 2 AV BLOCK Electronically Signed On 02-20-2025 17:07:42 CDT by Vinod Deshpande D.O
--- OUTSIDE RECORDS SUMMARY | 2025-02-19 13:14 | XMS_ITS | Encounter Summary ---
Author Organization [facility] Facility Care Team Providers Care Orthopedic Coder Name Role Phone Hernando Velasquez MD Primary Care Provider [phone] Jose Manuel Gruber MD Unavailable [phone] Bernardo Edwrads MD Primary Care Provider [phone] Hernando Velasquez MD Primary Care Provider [phone] Bernardo Edwards MD Primary Care Provider [phone] Bernardo Edwards MD Primary Care Provider [phone] Hernando Velasquez MD Primary Care Provider [phone] Encounter Details Date Type Department Care Team (Latest Contact Info) Description 07/12/2016 Orders Only [facility] CLINCONV ProviderLucille MD [address] [place] [id number] Social History Tobacco Use Types Packs/Day [...] Comments SCAN - LABS 07/23/2016 12:00 AM AGILITY INSTRUCTOR documented in this encounter Results * SCAN - LABS (07/23/2016 12:00 AM AGILITY INSTRUCTOR) Narrative 07/23/2016 12:00 AM AGILITY INSTRUCTOR Ordered by an unspecified provider. us Historical [...] documented as of this encounter Care Teams Orthopedic Coder Relationship Specialty Start Date End Date Hernando Velasquez MD PCP - General 12/23/18 06/13/19 Bernardo Edwards MD [address] [place] [address] PCP - General 07/05/20 07/06/20 Hernando Velasquez MD PCP - General 07/07/20 07/07/20 Bernardo Edwards MD [address] [place] [address] PCP - General 07/08/20 01/06/22 Bernardo Edwards MD [address] [place] [address] PCP - General 06/14/19 07/04/20 Hernando Velasquez MD PCP - General Internal Medicine 01/07/22 Jose Manuel Gruber MD Fellow Orthopedic Surgery 07/06/19 documented as of this encounter
--- OUTSIDE RECORDS SUMMARY | 2025-02-19 13:14 | XMS_ITS | Encounter Summary ---
Author Organization [facility] Facility Care Team Providers Care Gauge And Weigh Machine Operator Name Role Phone Hernando Velasquez MD Primary Care Provider [phone] Jose Manuel Gruber MD Unavailable [phone] Bernardo Edwards MD Primary Care Provider [phone] Hernando Velasquez MD Primary Care Provider [phone] Bernardo Edwards MD Primary Care Provider [phone] Bernardo Edwards MD Primary Care Provider [phone] Hernando Velasquez MD Primary Care Provider [phone] Encounter Details Date Type Department Care Team (Latest Contact Info) Description 07/22/2016 Orders Only [facility] CLINCONV ProviderLucille MD [address] [place] [id number] Social History Tobacco Use Types Packs/Day [...] Comments SCAN - LABS 07/23/2016 12:00 AM FARM ADVISER documented in this encounter Results * SCAN - LABS (07/23/2016 12:00 AM FARM ADVISER) Narrative 07/23/2016 12:00 AM FARM ADVISER Ordered by an unspecified provider. us Historical [...] documented as of this encounter Care Teams Gauge And Weigh Machine Operator Relationship Specialty Start Date End Date Hernando Velasquez MD PCP - General 12/23/18 06/13/19 Bernardo Edwards MD [address] [place] [address] PCP - General 07/05/20 07/06/20 Hernando Velasquez MD PCP - General 07/07/20 07/07/20 Bernardo Edwards MD [address] [place] [address] PCP - General 07/08/20 01/06/22 Bernardo Edwarsd MD [address] [place] [address] PCP - General 06/14/19 07/04/20 Hernando Velasquez MD PCP - General Internal Medicine 01/07/22 Jose Manuel Gruber MD Fellow Orthopedic Surgery 07/06/19 documented as of this encounter
--- OUTSIDE RECORDS SUMMARY | 2025-02-19 13:14 | XMS_ITS | Clinical Summary ---
Author Organization [facility] Healthcare Address [address] [place] [address] Care Team Providers Care Framing Manager Name Role Phone Jose Manuel Gruber MD Unavailable [phone] Hernando Velasquez MD Primary Care Provider [phone] Allergies Active Allergy Reactions Criticality Noted Date Comments Barbiturates Unknown,Other (See comments) Medium 09/13/2006 Diazepam Unknown,Other (See comments) Low 09/13/2006 Fish Containing Products Anaphylaxis High 07/05/2019 Iodine Unknown,Other (See comments) Low 09/13/2006 Latex Unknown 06/28/2019 Menthol Hives,Itching,Rash Medium 07/08/2022 [place]-3 Fatty Acids Unknown,Other (See comments) Low 12/12/2010 [...] 04/15/2022 Assessment & Plan (07/08/2022 2:39 PM GUNNERY/ORDNANCE OFFICER): I did recommend that the patient decrease [...] 01/07/2022 Assessment & Plan (07/08/2022 2:39 PM GUNNERY/ORDNANCE OFFICER): The patient does have some cough with [...] 01/07/2022 Assessment & Plan (07/08/2022 2:39 PM GUNNERY/ORDNANCE OFFICER): She was intolerant of CPAP therapy and [...] 07/05/2020 Assessment & Plan (07/11/2020 6:58 AM GUNNERY/ORDNANCE OFFICER): - Patient tested positive for COVID-19 on 06/21/20 at her residential ([facility] in [place], [place]). - She reports her only symptom [...] SNF. Assessment & Plan (07/07/2020 6:25 PM GUNNERY/ORDNANCE OFFICER): - Pt states she was actually tested [...] protocol Assessment & Plan (07/06/2020 11:59 AM GUNNERY/ORDNANCE OFFICER): - recommend getting records from SNF to establish exact date of first (+) COVID test. - pt likely has completed days of isolation. Assessment & Plan (07/06/2020 7:34 AM GUNNERY/ORDNANCE OFFICER): - Per report, pt was tested for [...] protocol Assessment & Plan (07/05/2020 5:40 PM GUNNERY/ORDNANCE OFFICER): - Per report, pt was tested for [...] 07/05/2020 Assessment & Plan (07/11/2020 6:57 AM GUNNERY/ORDNANCE OFFICER): History of open periprosthetic tibia/fibula fracture s/p [...] left lower extremity. - PM&R consulted. - Blanket Winder Operator placed stump gas line servicer / ampushield. Awaiting delivery of limb protector. - Patient not interested in prosthesis at this time. - PT/OT consults. - Plan for patient to return to her prior SNF when medically stable with ongoing PT/OT. - ID and Ortho following. Assessment & Plan (07/07/2020 6:27 PM GUNNERY/ORDNANCE OFFICER): - History of open periprosthetic tibia/fibula fracture [...] extremity Assessment & Plan (07/06/2020 3:07 PM GUNNERY/ORDNANCE OFFICER): - Cellulitis vs subcutaneous infection vs OM [...] recs. Assessment & Plan (07/05/2020 6:03 PM GUNNERY/ORDNANCE OFFICER): - Cellulitis vs subcutaneous infection vs OM [...] (07/08/2020): Added automatically from request for surgery [id number] Abnormal x-ray of extremity 07/20/2019 Acute exacerbation of chronic low back pain 06/26 Biliary colic 07/20/2019 Chronic lumbosacral pain 07/20/2019 Chronic respiratory failure 07/20/2019 Assessment & Plan (07/08/2020 4:27 PM GUNNERY/ORDNANCE OFFICER): - Per pt 2/2 COPD. No sings of acute exacerbation. - Continue home flonase - Continue home albuterol prn - On home is on 4L O2 at baseline Assessment & Plan (07/07/2020 6:26 PM GUNNERY/ORDNANCE OFFICER): - Per pt 2/2 COPD. No sings of acute exacerbation. - Continue home flonase - Continue home albuterol prn - On baseline 4L O2 Assessment & Plan (07/06/2020 7:33 AM GUNNERY/ORDNANCE OFFICER): - Per pt 2/2 COPD. No sings of acute exacerbation. - Continue home flonase - Continue home albuterol prn - On baseline 4L O2 Assessment & Plan (07/05/2020 6:00 PM GUNNERY/ORDNANCE OFFICER): - Per pt 2/2 COPD. No sings of acute exacerbation. - Continue home flonase - Continue home albuterol prn - On baseline 4L O2 Closed displaced bimalleolar fracture of right l ower leg 07/20/2019 Assessment & Plan (07/05/2020 6:01 PM GUNNERY/ORDNANCE OFFICER): - As elsewhere Deep venous insufficiency 07/20/2019 [...] 06/28/2019 Assessment & Plan (07/08/2020 4:26 PM GUNNERY/ORDNANCE OFFICER): - Follows with cardiology. - Continue home amlodipine, metoprolol, lasix, spironolactone. - Switched olmesartan to losartan as not on formulary. Assessment & Plan (07/07/2020 6:26 PM GUNNERY/ORDNANCE OFFICER): - Follows with cardiology - Continue home amlodipine, metoprolol, lasix, spironolactone - Switched olmesartan to losartan as not on formulary Assessment & Plan (07/06/2020 3:04 PM GUNNERY/ORDNANCE OFFICER): - Follows with cardiology - Continue home amlodipine, metoprolol, lasix, spironolactone - Switched olmesartan to losartan as not on formulary Assessment & Plan (07/05/2020 5:58 PM GUNNERY/ORDNANCE OFFICER): - Follows with cardiology - Continue home amlodipine, metoprolol, lasix, spironolactone - Switch olmesartan to losartan as not on formulary Syncope due to sick sinus syndrome 06/28/2019 Open displaced comminuted fr acture of shaft of left tibia, type IIIA, IIIB, or IIIC 06/28/2019 Overview (06/28/2019): Added automatically from request for surgery [id number] Assessment & Plan (07/08/2020 4:27 PM GUNNERY/ORDNANCE OFFICER): - See above. 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 After hours, the ID fellow equipment installation professional can be reached at [phone]. Assessment & Plan (07/05/2020 5:59 PM GUNNERY/ORDNANCE OFFICER): - L tibia and R ankle fractures s/p BRENNA in 06/2020 - Complicated by poor healing and multiple infections of L anterior leg wound - Pt of Dr. Shoemaker Hyponatremia 11/23/2017 Assessment & Plan (07/11/2020 6:59 AM GUNNERY/ORDNANCE OFFICER): - Pt with history of hypoNa (per report, baseline mid 120- low 130s). - Na 126 on admission. No AMS. - TSH wnl. Cortisol 17. - Na stable. Assessment & Plan (07/07/2020 6:26 PM GUNNERY/ORDNANCE OFFICER): - Pt with history of hypoNa (per report, baseline mid 120- low 130s). - Na 126 on admission. No AMS. - TSH wnl. Cortisol 17. - Diuretics were held and Na improved to 132. Restart when able. Assessment & Plan (07/06/2020 7:31 AM GUNNERY/ORDNANCE OFFICER): - Pt with history of hypoNa (per [...] Comments Blood Pressure 153/76 07/08/2022 2:24 PM GUNNERY/ORDNANCE OFFICER Pulse 71 07/08/2022 2:24 PM GUNNERY/ORDNANCE OFFICER Temperature 36.5 C (97.7 F) 01/16/2022 5:20 PM CDT Respiratory Rate 18 07/08/2022 2:24 PM GUNNERY/ORDNANCE OFFICER Oxygen Saturation 96% 07/08/2022 2:24 PM GUNNERY/ORDNANCE OFFICER Inhaled Oxygen Concentration - - Weight 89.4 [...] Completed 06/10/2019 Medical Devices Implanted Type Area Lye Boiler Device Identifier Shelf Expiration Date Model / Serial / Lot Synthes 223.581 Lcp Combi [id number] 8 Hole Limit Contact Taper End Plate Bone - S0 - [id number] Implanted:Qty: 1 on 06/28/2019 by Lo Laura DO at [facility] Plate Left: Tibia Synthes I 223.581 / 0 / 0 Synthes 212.106 3.5mm 2.9mm 20mm Self Tap Lock Stardrive Conical Head T15 Full - S0 - [id number] Implanted:Qty: 1 on 06/28/2019 by Lo Laura DO at [facility] Screw Left: Tibia Synthes I 212.106 / 0 / 0 Synthes 212.108 3.5mm 2.9mm 24mm Self Tap Lock Stardrive Conical Head Pelvis T15 - S0 - [id number] Implanted:Qty: 1 on 06/28/2019 by Lo Laura DO at [facility] Screw Left: Tibia Synthes I 212.108 / 0 / 0 Synthes 212.109 3.5mm 2.9mm 26mm Self Tap Lock Stardrive Conical Head T15 Full - S0 - [id number] Implanted:Qty: 1 on 06/28/2019 by Lo Laura DO at [facility] Screw Left: Tibia Synthes I 212.109 / 0 / 0 Synthes 212.104 3.5mm 2.9mm 16mm Self Tap Lock Stardrive Conical Head T15 Full - S0 - [id number] Implanted:Qty: 2 on 06/28/2019 by Lo Laura DO at [facility] Screw Left: Tibia Synthes I 212.104 / 0 / 0 Synthes 212.107 3.5mm 2.9mm 22mm Self Tap Lock Stardrive Conical Head T15 Full - S0 - [id number] Implanted:Qty: 1 on 06/28/2019 by Lo Laura DO at [facility] Screw Left: Tibia Synthes I 212.107 / 0 / 0 Synthes 212.103 3.5mm 2.9mm 14mm Self Tap Lock Stardrive Conical Head T15 Full - [id number] Implanted:Qty: 2 on 06/30/2019 by Jacobo Shoemaker MD at [facility] Left: Tibia Synthes I 212.103 / / Synthes 212.109 3.5mm 2.9mm 26mm Self Tap Lock Stardrive Conical Head T15 Full - [id number] Implanted:Qty: 2 on 06/30/2019 by Jacobo Shoemaker MD at [facility] Left: Tibia Synthes I 212.109 / / Synthes 212.101 3.5mm 2.9mm 10mm Self Tap Lock Stardrive Conical Head T15 Full - [id number] Implanted:Qty: 1 on 06/30/2019 by Jacobo Shoemaker MD at [facility] Left: Tibia Synthes I 212.101 / / Synthes 212.107 3.5mm 2.9mm 22mm Self Tap Lock Stardrive Conical Head T15 Full - [id number] Implanted:Qty: 1 on 06/30/2019 by Jacobo Shoemaker MD at [facility] Left: Tibia Synthes I 212.107 / / Synthes 204.840 3.5mm 6mm 40mm 2.5mm Self Tap Small Hexagonal Socket Low Profile - [id number] Implanted:Qty: 1 on 06/30/2019 by Jacobo Shoemaker MD at [facility] Left: Tibia Synthes I 204.840 / / Synthes 204.832 3.5mm 6mm 32mm 2.5mm Self Tap Small Hexagonal Socket Low Profile - [id number] Implanted:Qty: 1 on 06/30/2019 by Jacobo Shoemaker MD at [facility] Left: Tibia Synthes I 204.832 / / Synthes 241.351 Lcp 12mm [id number] .7mm 5 Hole Collar 1/3 Tubular Plate Bone - [id number] Implanted:Qty: 1 on 06/30/2019 by Jacobo Shoemaker MD at [facility] Left: Tibia Synthes I 241.351 / / Synthes 241.351 Lcp 12mm [id number] .7mm 5 Hole Collar 1/3 Tubular Plate Bone - [id number] Implanted:Qty: 1 on 06/30/2019 by Jacobo Shoemaker MD at [facility] Right: Ankle Synthes I 241.351 / / Synthes 204.826 3.5mm 6mm 26mm 2.5mm Self Tap Small Hexagonal Socket Low Profile - [id number] Implanted:Qty: 1 on 06/30/2019 by Jacobo Shoemaker MD at [facility] Right: Ankle Synthes I 204.826 / / Synthes 212.102 3.5mm 2.9mm 12mm Self Tap Lock Stardrive Conical Head T15 Full - [id number] Implanted:Qty: 1 on 06/30/2019 by Jacobo Shoemaker MD at [facility] Right: Ankle Synthes I 212.102 / / Synthes 212.114 3.5mm 2.9mm 35mm Self Tap Lock Stardrive Conical Head T15 Full - [id number] Implanted:Qty: 1 on 06/30/2019 by Jacobo Shoemaker MD at [facility] Right: Ankle Synthes I 212.114 / / Synthes 223.641 Lcp Combi [id number] 14 Hole Limit Contact Taper End Plate Bone - [id number] Implanted:Qty: 1 on 06/30/2019 by Jacobo Shoemaker MD at [facility] Left: Tibia Synthes I 223.641 / / Synthes 204.824 3.5mm 6mm 24mm 2.5mm Self Tap Small Hexagonal Socket Low Profile - [id number] Implanted:Qty: 2 on 06/30/2019 by Jacobo Shoemaker MD at [facility] Left: Tibia Synthes I 204.824 / / Synthes 212.104 3.5mm 2.9mm 16mm Self Tap Lock Stardrive Conical Head T15 Full - [id number] Implanted:Qty: 2 on 06/30/2019 by Jacobo Shoemaker MD at [facility] Left: Tibia Synthes I 212.104 / / Explanted Type Area Lye Boiler Device Identifier Shelf Expiration Date Model / Serial / Lot Synthes 204.836 3.5mm 6mm 36mm 2.5mm Self Tap Small Hexagonal Socket Low Profile - [id number] Explanted:Qty: 1 on 06/30/2019 at [facility] Right: Ankle Synthes I 204.836 / / Synthes 212.117 3.5mm 2.9mm 40mm Self Tap Lock Stardrive Conical Head T15 Full - [id number] Explanted:Qty: 1 on 06/30/2019 at [facility] Right: Ankle Synthes I 212.117 / / Procedures Procedure Name Priority Date/Time Associated Diagnosis Comments SCREENING MAMMOGRAM BILATERAL W WILLIE Schedule Routine, Read Routine (OP Routine) 02/18/2023 1:39 PM CDT Screening mammogram, encounter for HEPATITIS PANEL, ACUTE Routine 06/10/2019 10:11 AM GUNNERY/ORDNANCE OFFICER from Last 3 Months or Most Recently [...] age 42, based on guidelines of the [employer] (ACR Practice Parameter for the Performance of Screening and Diagnostic Mammography) and [employer]. For women [...] * Hepatitis panel, acute (06/10/2019 10:11 AM GUNNERY/ORDNANCE OFFICER) HepBsAg NONREACT NONREACTIVE [facility] Comment: Siemens CentaurXP using SUSU (chemiluminescent immunoassay) technology. NONREACTIVE: IgM antibodies to Hepatitis B Surface antigen not detected. REACTIVE: IgM antibodies to Hepatitis B Surface antigen detected. Reactive results will be confirmed by neutralization testing. HBsAb qn <3.10 mIU/mL [facility] Comment: Siemens CentaurXP using SUSU (chemiluminescent immunoassay) technology. 9.99 IU/L or less.....NONREACTIVE: IgM antibodies to Hepatitis B Surface antibody are not detected. 10.00 IU/L or greater..REACTIVE: IgM antibodies to Hepatitis B Surface antibody are detected. Hep B core IgM NONREACT NONREACTIVE [facility] Comment: Siemens CentaurXP using SUSU (chemiluminescent immunoassay) technology. NONREACTIVE: IgM antibodies to Hepatitis B Core antigen not detected. EQUIVOCAL: IgM antibodies to Hepatitis B Core antigen may or may not be present. Obtain a new specimen and retest. REACTIVE: IgM antibodies to Hepatitis B Core antigen detected. Hep A IgM NONREACT NONREACTIVE [facility] Comment: Siemens CentaurXP using SUSU (chemiluminescent immunoassay) technology. NONREACTIVE: IgM antibodies to Hepatitis A not detected. This does not exclude possibility of exposure to Hepatitis A or early acute infection. EQUIVOCAL:IgM antibodies to Hepatitis A may or may not be present. Suggest recollection and retest. REACTIVE: Antibodies to Hepatitis A detected. Hep C Ab NONREACT NONREACTIVE [facility] Comment: Siemens CentaurXP using SUSU [...] real-time PCR method. 06/10/2019 10:1 1 AM GUNNERY/ORDNANCE OFFICER 06/10/2019 10:47 AM GUNNERY/ORDNANCE OFFICER Narrative Resulting Agency Comment IN Destiny Pereira MD LAB MICROBIOLOGY - GENERAL ORDERABLES Final Result [id number] [place], [place] [id number] [place] [address] from Last 3 Months or Most Recently Relevant to Health Maintenance Insurance [facility] [place] [address] [facility] ADVANT IDPA [facility] IDFL MEDICARE [facility] Address: [address] [address] [place] [address] Advance Directives For more information, please contact: [phone] Documents on File Type Date Recorded Patient Transportation Refrigeration Technician Expl anation ADVANCE DIRECTIVE 07/14/2020 6:58 AM * Full Code (Latest Code Status on File) Date Activated Date Inactivated Comments 07/05/2020 4:11 PM 07/12/2020 7:15 PM * Full Code Date Activated Date Inactivated Comments 06/28/2019 11:55 PM 07/06/2019 8:59 PM Care Teams Framing Manager Relationship Specialty Start Date End Date Hernando Velasquez MD PCP - General Internal Medicine 01/07/22 Jose Manuel Gruber MD Fellow Orthopedic Surgery 07/06/19
--- OUTSIDE RECORDS SUMMARY | 2025-02-19 13:14 | XMS_ITS | Referral Summary ---
Author Organization [facility] Healthcare Address [address] [place] [address] Care Team Providers Care Research Assistant Name Role Phone Jose Manuel Gruber MD Unavailable [phone] Hernando Velasquez MD Primary Care Provider [phone] Allergies Active Allergy Reactions Criticality Noted Date Comments Barbiturates Unknown,Other (See comments) Medium 09/13/2006 Diazepam Unknown,Other (See comments) Low 09/13/2006 Fish Containing Products Anaphylaxis High 07/05/2019 Iodine Unknown,Other (See comments) Low 09/13/2006 Latex Unknown 06/28/2019 Menthol Hives,Itching,Rash Medium 07/08/2022 Askov-3 Fatty Acids Unknown,Other (See comments) Low 12/12/2010 [...] 04/15/2022 Assessment & Plan (07/08/2022 2:39 PM ENVIRONMENTAL SPECIALIST): I did recommend that the patient decrease [...] 01/07/2022 Assessment & Plan (07/08/2022 2:39 PM ENVIRONMENTAL SPECIALIST): The patient does have some cough with [...] 01/07/2022 Assessment & Plan (07/08/2022 2:39 PM ENVIRONMENTAL SPECIALIST): She was intolerant of CPAP therapy and [...] 07/05/2020 Assessment & Plan (07/11/2020 6:58 AM ENVIRONMENTAL SPECIALIST): - Patient tested positive for COVID-19 on 06/21/20 at her detention ([facility] in [place], [place]). - She reports her only symptom [...] SNF. Assessment & Plan (07/07/2020 6:25 PM ENVIRONMENTAL SPECIALIST): - Pt states she was actually tested [...] protocol Assessment & Plan (07/06/2020 11:59 AM ENVIRONMENTAL SPECIALIST): - recommend getting records from SNF to establish exact date of first (+) COVID test. - pt likely has completed days of isolation. Assessment & Plan (07/06/2020 7:34 AM ENVIRONMENTAL SPECIALIST): - Per report, pt was tested for [...] protocol Assessment & Plan (07/05/2020 5:40 PM ENVIRONMENTAL SPECIALIST): - Per report, pt was tested for [...] 07/05/2020 Assessment & Plan (07/11/2020 6:57 AM ENVIRONMENTAL SPECIALIST): History of open periprosthetic tibia/fibula fracture s/p [...] left lower extremity. - PM&R consulted. - Human Factors Specialist placed stump inspector wreath / ampushield. Awaiting delivery of limb protector. - Patient not interested in prosthesis at this time. - PT/OT consults. - Plan for patient to return to her prior SNF when medically stable with ongoing PT/OT. - ID and Ortho following. Assessment & Plan (07/07/2020 6:27 PM ENVIRONMENTAL SPECIALIST): - History of open periprosthetic tibia/fibula fracture [...] extremity Assessment & Plan (07/06/2020 3:07 PM ENVIRONMENTAL SPECIALIST): - Cellulitis vs subcutaneous infection vs OM [...] recs. Assessment & Plan (07/05/2020 6:03 PM ENVIRONMENTAL SPECIALIST): - Cellulitis vs subcutaneous infection vs OM [...] (07/08/2020): Added automatically from request for surgery [id number] Abnormal x-ray of extremity 07/20/2019 Acute exacerbation of chronic low back pain 06/26 Biliary colic 07/20/2019 Chronic lumbosacral pain 07/20/2019 Chronic respiratory failure 07/20/2019 Assessment & Plan (07/08/2020 4:27 PM ENVIRONMENTAL SPECIALIST): - Per pt 2/2 COPD. No sings of acute exacerbation. - Continue home flonase - Continue home albuterol prn - On home is on 4L O2 at baseline Assessment & Plan (07/07/2020 6:26 PM ENVIRONMENTAL SPECIALIST): - Per pt 2/2 COPD. No sings of acute exacerbation. - Continue home flonase - Continue home albuterol prn - On baseline 4L O2 Assessment & Plan (07/06/2020 7:33 AM ENVIRONMENTAL SPECIALIST): - Per pt 2/2 COPD. No sings of acute exacerbation. - Continue home flonase - Continue home albuterol prn - On baseline 4L O2 Assessment & Plan (07/05/2020 6:00 PM ENVIRONMENTAL SPECIALIST): - Per pt 2/2 COPD. No sings of acute exacerbation. - Continue home flonase - Continue home albuterol prn - On baseline 4L O2 Closed displaced bimalleolar fracture of right l ower leg 07/20/2019 Assessment & Plan (07/05/2020 6:01 PM ENVIRONMENTAL SPECIALIST): - As elsewhere Deep venous insufficiency 07/20/2019 [...] 06/28/2019 Assessment & Plan (07/08/2020 4:26 PM ENVIRONMENTAL SPECIALIST): - Follows with cardiology. - Continue home amlodipine, metoprolol, lasix, spironolactone. - Switched olmesartan to losartan as not on formulary. Assessment & Plan (07/07/2020 6:26 PM ENVIRONMENTAL SPECIALIST): - Follows with cardiology - Continue home amlodipine, metoprolol, lasix, spironolactone - Switched olmesartan to losartan as not on formulary Assessment & Plan (07/06/2020 3:04 PM ENVIRONMENTAL SPECIALIST): - Follows with cardiology - Continue home amlodipine, metoprolol, lasix, spironolactone - Switched olmesartan to losartan as not on formulary Assessment & Plan (07/05/2020 5:58 PM ENVIRONMENTAL SPECIALIST): - Follows with cardiology - Continue home amlodipine, metoprolol, lasix, spironolactone - Switch olmesartan to losartan as not on formulary Syncope due to sick sinus syndrome 06/28/2019 Open displaced comminuted fr acture of shaft of left tibia, type IIIA, IIIB, or IIIC 06/28/2019 Overview (06/28/2019): Added automatically from request for surgery [id number] Assessment & Plan (07/08/2020 4:27 PM ENVIRONMENTAL SPECIALIST): - See above. 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 After hours, the ID fellow land leasing information clerk can be reached at [phone]. Assessment & Plan (07/05/2020 5:59 PM ENVIRONMENTAL SPECIALIST): - L tibia and R ankle fractures s/p BRENNA in 06/2020 - Complicated by poor healing and multiple infections of L anterior leg wound - Pt of Dr. Shoemaker Hyponatremia 11/23/2017 Assessment & Plan (07/11/2020 6:59 AM ENVIRONMENTAL SPECIALIST): - Pt with history of hypoNa (per report, baseline mid 120- low 130s). - Na 126 on admission. No AMS. - TSH wnl. Cortisol 17. - Na stable. Assessment & Plan (07/07/2020 6:26 PM ENVIRONMENTAL SPECIALIST): - Pt with history of hypoNa (per report, baseline mid 120- low 130s). - Na 126 on admission. No AMS. - TSH wnl. Cortisol 17. - Diuretics were held and Na improved to 132. Restart when able. Assessment & Plan (07/06/2020 7:31 AM ENVIRONMENTAL SPECIALIST): - Pt with history of hypoNa (per [...] Comments Blood Pressure 153/76 07/08/2022 2:24 PM ENVIRONMENTAL SPECIALIST Pulse 71 07/08/2022 2:24 PM ENVIRONMENTAL SPECIALIST Temperature 36.5 C (97.7 F) 01/16/2022 5:20 PM CDT Respiratory Rate 18 07/08/2022 2:24 PM ENVIRONMENTAL SPECIALIST Oxygen Saturation 96% 07/08/2022 2:24 PM ENVIRONMENTAL SPECIALIST Inhaled Oxygen Concentration - - Weight 89.4 kg (197 lb) 01/16/2022 5:20 PM CDT Height 157.5 cm (5' 2) 04/15/2022 2:28 PM CDT Body Mass Index 36.03 01/07/2022 12:59 PM CDT Plan of Treatment Not on file Medical Devices Implanted Type Area Residential Program Worker Device Identifier Shelf Expiration Date Model / Serial / Lot Synthes 223.581 Lcp Combi [id number] 8 Hole Limit Contact Taper End Plate Bone - S0 - [id number] Implanted:Qty: 1 on 06/28/2019 by Lo Laura DO at [facility] Plate Left: Tibia Synthes I 223.581 / 0 / 0 Synthes 212.106 3.5mm 2.9mm 20mm Self Tap Lock Stardrive Conical Head T15 Full - S0 - [id number] Implanted:Qty: 1 on 06/28/2019 by Lo Laura DO at [facility] Screw Left: Tibia Synthes I 212.106 / 0 / 0 Synthes 212.108 3.5mm 2.9mm 24mm Self Tap Lock Stardrive Conical Head Pelvis T15 - S0 - [id number] Implanted:Qty: 1 on 06/28/2019 by Lo Laura DO at [facility] Screw Left: Tibia Synthes I 212.108 / 0 / 0 Synthes 212.109 3.5mm 2.9mm 26mm Self Tap Lock Stardrive Conical Head T15 Full - S0 - [id number] Implanted:Qty: 1 on 06/28/2019 by Lo Laura DO at [facility] Screw Left: Tibia Synthes I 212.109 / 0 / 0 Synthes 212.104 3.5mm 2.9mm 16mm Self Tap Lock Stardrive Conical Head T15 Full - S0 - [id number] Implanted:Qty: 2 on 06/28/2019 by Lo Laura DO at [facility] Screw Left: Tibia Synthes I 212.104 / 0 / 0 Synthes 212.107 3.5mm 2.9mm 22mm Self Tap Lock Stardrive Conical Head T15 Full - S0 - [id number] Implanted:Qty: 1 on 06/28/2019 by Lo Laura DO at [facility] Screw Left: Tibia Synthes I 212.107 / 0 / 0 Synthes 212.103 3.5mm 2.9mm 14mm Self Tap Lock Stardrive Conical Head T15 Full - [id number] Implanted:Qty: 2 on 06/30/2019 by Jacobo Shoemaker MD at [facility] Left: Tibia Synthes I 212.103 / / Synthes 212.109 3.5mm 2.9mm 26mm Self Tap Lock Stardrive Conical Head T15 Full - [id number] Implanted:Qty: 2 on 06/30/2019 by Jacobo Shoemaker MD at [facility] Left: Tibia Synthes I 212.109 / / Synthes 212.101 3.5mm 2.9mm 10mm Self Tap Lock Stardrive Conical Head T15 Full - [id number] Implanted:Qty: 1 on 06/30/2019 by Jacobo Shoemaker MD at [facility] Left: Tibia Synthes I 212.101 / / Synthes 212.107 3.5mm 2.9mm 22mm Self Tap Lock Stardrive Conical Head T15 Full - [id number] Implanted:Qty: 1 on 06/30/2019 by Jacobo Shoemaker MD at [facility] Left: Tibia Synthes I 212.107 / / Synthes 204.840 3.5mm 6mm 40mm 2.5mm Self Tap Small Hexagonal Socket Low Profile - [id number] Implanted:Qty: 1 on 06/30/2019 by Jacobo Shoemaker MD at [facility] Left: Tibia Synthes I 204.840 / / Synthes 204.832 3.5mm 6mm 32mm 2.5mm Self Tap Small Hexagonal Socket Low Profile - [id number] Implanted:Qty: 1 on 06/30/2019 by Jacobo Shoemaker MD at [facility] Left: Tibia Synthes I 204.832 / / Synthes 241.351 Lcp 12mm [id number] .7mm 5 Hole Collar 1/3 Tubular Plate Bone - [id number] Implanted:Qty: 1 on 06/30/2019 by Jacobo Shoemaker MD at [facility] Left: Tibia Synthes I 241.351 / / Synthes 241.351 Lcp 12mm [id number] .7mm 5 Hole Collar 1/3 Tubular Plate Bone - [id number] Implanted:Qty: 1 on 06/30/2019 by Jacobo Shoemaker MD at [facility] Right: Ankle Synthes I 241.351 / / Synthes 204.826 3.5mm 6mm 26mm 2.5mm Self Tap Small Hexagonal Socket Low Profile - [id number] Implanted:Qty: 1 on 06/30/2019 by Jacobo Shoemaker MD at [facility] Right: Ankle Synthes I 204.826 / / Synthes 212.102 3.5mm 2.9mm 12mm Self Tap Lock Stardrive Conical Head T15 Full - [id number] Implanted:Qty: 1 on 06/30/2019 by Jacobo Shoemaker MD at [facility] Right: Ankle Synthes I 212.102 / / Synthes 212.114 3.5mm 2.9mm 35mm Self Tap Lock Stardrive Conical Head T15 Full - [id number] Implanted:Qty: 1 on 06/30/2019 by Jacobo Shoemaker MD at [facility] Right: Ankle Synthes I 212.114 / / Synthes 223.641 Lcp Combi [id number] 14 Hole Limit Contact Taper End Plate Bone - [id number] Implanted:Qty: 1 on 06/30/2019 by Jacobo Shoemaker MD at [facility] Left: Tibia Synthes I 223.641 / / Synthes 204.824 3.5mm 6mm 24mm 2.5mm Self Tap Small Hexagonal Socket Low Profile - [id number] Implanted:Qty: 2 on 06/30/2019 by Jacobo Shoemaker MD at [facility] Left: Tibia Synthes I 204.824 / / Synthes 212.104 3.5mm 2.9mm 16mm Self Tap Lock Stardrive Conical Head T15 Full - [id number] Implanted:Qty: 2 on 06/30/2019 by Jacobo Shoemaker MD at [facility] Left: Tibia Synthes I 212.104 / / Explanted Type Area Residential Program Worker Device Identifier Shelf Expiration Date Model / Serial / Lot Synthes 204.836 3.5mm 6mm 36mm 2.5mm Self Tap Small Hexagonal Socket Low Profile - [id number] Explanted:Qty: 1 on 06/30/2019 at [facility] Right: Ankle Synthes I 204.836 / / Synthes 212.117 3.5mm 2.9mm 40mm Self Tap Lock Stardrive Conical Head T15 Full - [id number] Explanted:Qty: 1 on 06/30/2019 at [facility] Right: Ankle Synthes I 212.117 / / Procedures Procedure Name Priority Date/Time Associated Diagnosis Comments SCREENING MAMMOGRAM BILATERAL W WILLIE Schedule Routine, Read Routine (OP Routine) 02/18/2023 1:39 PM CDT Screening mammogram, encounter for HEPATITIS PANEL, ACUTE Routine 06/10/2019 10:11 AM ENVIRONMENTAL SPECIALIST from Last 3 Months or Most Recently [...] age 42, based on guidelines of the [place] [employer] (ACR Practice Parameter for the Performance of Screening and Diagnostic Mammography) and [place] [employer]. For women [...] * Hepatitis panel, acute (06/10/2019 10:11 AM ENVIRONMENTAL SPECIALIST) HepBsAg NONREACT NONREACTIVE [facility] Comment: Siemens CentaurXP using SUSU (chemiluminescent immunoassay) technology. NONREACTIVE: IgM antibodies to Hepatitis B Surface antigen not detected. REACTIVE: IgM antibodies to Hepatitis B Surface antigen detected. Reactive results will be confirmed by neutralization testing. HBsAb qn <3.10 mIU/mL [facility] Comment: Siemens CentaurXP using SUSU (chemiluminescent immunoassay) technology. 9.99 IU/L or less.....NONREACTIVE: IgM antibodies to Hepatitis B Surface antibody are not detected. 10.00 IU/L or greater..REACTIVE: IgM antibodies to Hepatitis B Surface antibody are detected. Hep B core IgM NONREACT NONREACTIVE [facility] Comment: Siemens CentaurXP using SUSU (chemiluminescent immunoassay) technology. NONREACTIVE: IgM antibodies to Hepatitis B Core antigen not detected. EQUIVOCAL: IgM antibodies to Hepatitis B Core antigen may or may not be present. Obtain a new specimen and retest. REACTIVE: IgM antibodies to Hepatitis B Core antigen detected. Hep A IgM NONREACT NONREACTIVE [facility] Comment: Siemens CentaurXP using SUSU (chemiluminescent immunoassay) technology. NONREACTIVE: IgM antibodies to Hepatitis A not detected. This does not exclude possibility of exposure to Hepatitis A or early acute infection. EQUIVOCAL:IgM antibodies to Hepatitis A may or may not be present. Suggest recollection and retest. REACTIVE: Antibodies to Hepatitis A detected. Hep C Ab NONREACT NONREACTIVE [facility] Comment: Siemens CentaurXP using SUSU (chemiluminescent [...] real-time PCR method. 06/10/2019 10:1 1 AM ENVIRONMENTAL SPECIALIST 06/10/2019 10:47 AM ENVIRONMENTAL SPECIALIST Narrative Resulting Agency Comment IN Destiny Pereira MD LAB MICROBIOLOGY - GENERAL ORDERABLES Final Result [facility] [address] [place], [place] [id number] [place] [address] from Last 3 Months or Most Recently Relevant to Health Maintenance Insurance [facility] IDPA MEDICARE Advance Directives For more information, please contact: [phone] Documents on File Type Date Recorded Patient Criminal Investigative Agent Expl anation ADVANCE DIRECTIVE 07/14/2020 6:58 AM * Full Code (Latest Code Status on File) Date Activated Date Inactivated Comments 07/05/2020 4:11 PM 07/12/2020 7:15 PM * Full Code Date Activated Date Inactivated Comments 06/28/2019 11:55 PM 07/06/2019 8:59 PM Care Teams Research Assistant Relationship Specialty Start Date End Date Hernando Velasquez MD PCP - General Internal Medicine 01/07/22 Jose Manuel Gruber MD Fellow Orthopedic Surgery 07/06/19
--- OUTSIDE RECORDS SUMMARY | 2025-02-19 13:14 | XMS_ITS | Clinical Summary ---
Author Organization [facility] Address [facility] [place] [address] Care Team Providers Care Mirror Framer Name Role Phone Marcia Gaines MD Primary Care Provider [phone] Allergies Active Allergy Reactions Criticality Noted Date [...] tartrate 25 MG tablet 1 Active NYSTATIN 212343 UNIT/GM powder 1 Active ondansetron 8 MG [...] left lower extremity ([facility]) 08/02/2020 Leg skin lesion, left 07/05/2020 Overview (05/06/2021): Added automatically from request for surgery [id number] Infection 07/05/2020 Overview (05/06/2021): Last Assessment & [...] left lower extremity. - PM&R consulted. - Watch Crystal Edge Grinder placed stump director search / ampushield. Awaiting delivery of limb protector. - Patient not interested in prosthesis at this time. - PT/OT consults. - Plan for patient to return to her prior SNF when medically stable with ongoing PT/OT. - ID and Ortho following. COVID-19 07/05/2020 Overview (05/06/2021): Last Assessment & Plan: - Patient tested positive for COVID-19 on 06/21/20 at her penitentiary ([facility] in [place], [place]). - She reports her only symptom [...] Chronic respiratory failure ([facility]) Overview (05/06/2021): Last Assessment & [...] sick sinus syndrome ([facility]) 06/28/2019 Open displaced comminuted fr acture of shaft of left tibia, type IIIA, IIIB, or IIIC 06/28/2019 Overview (05/06/2021): Added automatically from request for surgery [id number] Last Assessment & Plan: - See above. Moderate essential hypertension 06/28/2019 Overview (05/06/2021): Last Assessment & Plan: - Follows with cardiology. - Continue home amlodipine, metoprolol, lasix, spironolactone. - Switched olmesartan to losartan as not on formulary. Intractable seizure disorder ([facility]) 1 08/29/2018 Bipolar I disorder with anxious distress ([facility]) 06/28/2019 Traumatic rhabdomyolysis 11/23/2017 Hyponatremia [...] 05/09/2021 Insurance MEDICAID AET MEDICARE Care Teams Mirror Framer Relationship Specialty Start Date End Date Marcia Gaines MD PCP - General 08/18/16
[2025-02-19 13:18] LABS: Hematocrit 25.9 % (37.0-47.0); Hemoglobin 8.3 g/dL (12.0-15.0); Immature Granulocyte Percent A 0.7 % (0-0.5); Lymphocytes Absolute Auto 1.41 K/mm3 (0.9-3.2); Mean Corpuscular HGB Conc 32.0 g/dl (32-36); Mean Corpuscular Hemoglobin 27.8 pg (26-34); Mean Corpuscular Volume 86.6 fl (80-100); Nucleated Red Blood Cells Absolute Auto 0.000 K/mm3 (0.0-0.012); Nucleated Red Blood Cells Perc 0.0 % (0.0-0.2); Platelet Count Result 188 k/mm3 (150-375); Red Blood Count 2.99 M/mm3 (4.2-5.4); White Blood Count 7.3 K/mm3 (4.5-10.0)
[2025-02-19] MEDS: GLUCAGON FOR INJ 1 MG VIAL IM (13:24)
--- NOTE | 2025-02-19 13:27 | ED_ITS ---
HPI - General Adult General Chief complaint: Weakness Stated complaint: lethargic Time Seen by Provider: 02/19/25 13:01 History of Present Illness HPI narrative: 74-year-old female presents to the emergency department for evaluation for increased lethargy weakness and some shortness of breath. Patient denies any current chest pain but states she has had intermittent chest pain. Patient was just recently discharged from [facility] where she had been treated for a urinary tract infection, hyponatremia, hypokalemia and hypocalcemia. Upon arrival emergency department patient has a heart rate 36 with a blood pressure of 126/53. Patient does have history diabetes, CVA, left BKA, hyponatremia, hypomagnesemia, hypertension Related Data Home Medications ?Medication ?Instructions ?Recorded ?Confirmed ?Last Taken ?Type fluticasone propionate 50 1 spray intranasal DAILY 09/09/19 02/19/25 02/19/25 History mcg/actuation nasal spray,suspension docusate sodium 100 mg tablet 200 mg PO BID Constipation 05/31/20 02/19/25 02/19/25 History amlodipine 10 mg tablet 10 mg PO DAILY 04/23/24 02/19/25 02/19/25 History bisacodyl 5 mg tablet,delayed 10 mg PO HS PRN Constipation 04/23/24 02/19/25 Unknown History release (Dulcolax (bisacodyl)) guaifenesin 1,200 mg tablet, 1,200 mg PO Q12H 04/23/24 02/19/25 02/19/25 History extended release 12 hr (Mucinex) memantine 5 mg tablet 5 mg PO BID 04/23/24 02/19/25 02/19/25 History ondansetron HCl 4 mg tablet 4 mg PO TID 04/23/24 02/19/25 02/19/25 History isosorbide mononitrate 30 mg 30 mg PO DAILY 08/06/24 02/19/25 02/19/25 History tablet,extended release 24 hr lidocaine 5 % topical patch 2 patch topical HS 08/06/24 02/19/25 02/18/25 History (Lidoderm) magnesium hydroxide 400 mg/5 mL 30 ml PO DAILY PRN constipation 08/06/24 02/19/25 Unknown History oral suspension (Gentle Laxative (magnesium hydroxide)) atorvastatin 10 mg tablet (Lipitor) 10 mg PO HS 01/18/25 02/19/25 02/18/25 History buspirone 10 mg tablet 10 mg PO Q12H 01/18/25 02/19/25 02/19/25 History clonazepam 0.5 mg tablet 0.5 mg PO Q12H 01/18/25 02/19/25 02/19/25 History famciclovir 250 mg tablet 250 mg PO Q12H 01/18/25 02/19/25 02/19/25 History lactulose 10 gram/15 mL oral 30 g PO BID 01/18/25 02/19/25 02/19/25 History solution (Enulose) magnesium citrate 300 ml PO DAILY PRN constipation 01/18/25 02/19/25 Unknown History polyvinyl alcohol-povidone 0.5 2 drp EACH EYE BID PRN dry eye(s) 01/18/25 02/19/25 02/19/25 History %-0.6 % eye drops (Artificial Tears (polyvinyl alcohol/povidone)) primidone 50 mg tablet See Rx Instructions .Route .COMPLEX 01/18/25 02/19/25 02/19/25 History sennosides 8.6 mg-docusate sodium 2 tab-cap PO BID 01/18/25 02/19/25 02/19/25 History 50 mg tablet (Senna Plus) spironolactone 25 mg tablet 25 mg PO DAILY 01/18/25 02/19/25 02/19/25 History venlafaxine 37.5 mg 37.5 mg PO DAILY 01/18/25 02/19/25 02/19/25 History capsule,extended release 24 hr zolpidem 5 mg tablet 5 mg PO HS 01/18/25 02/19/25 02/18/25 History famotidine 10 mg tablet (Heartburn 10 mg PO DAILY 02/08/25 02/19/25 02/19/25 History Relief (famotidine)) metoprolol succinate 100 mg 300 mg PO QAM 02/08/25 02/19/25 02/19/25 History tablet,extended release 24 hr (Toprol XL) tizanidine 2 mg tablet 2 mg PO Q12H 02/08/25 02/19/25 02/19/25 History polyethylene glycol 3350 17 17 g PO DAILY 02/19/25 02/19/25 02/19/25 History gram/dose oral powder polyvinyl alcohol 1.4 % eye drops 2 drp EACH EYE BID 02/19/25 02/19/25 02/19/25 History (Artificial Tears (polyvinyl alcohol)) sodium chloride 1,000 mg soluble 1,000 mg PO BID 02/19/25 02/19/25 02/19/25 History tablet Allergies Allergy/AdvReac Type Severity Reaction Status Date / Time Fish Containing Products Allergy Severe Dyspnea / Verified 02/19/25 13:15 SOB Iodinated Contrast Media Allergy Intermediate HIVES, RED Verified 02/19/25 13:15 FACE iodine Allergy Unknown Unknown Verified 02/19/25 13:15 Barbiturates Allergy Unknown Verified 02/19/25 13:15 bupivacaine Allergy Unknown Verified 02/19/25 13:15 diazepam (From Valium) Allergy Unknown Verified 02/19/25 13:15 latex Allergy Unknown Verified 02/19/25 13:15 menthol Allergy Unknown Verified 02/19/25 13:15 Sulfa (Sulfonamide Allergy Unknown Verified 02/19/25 13:15 Antibiotics) thiopental (From Pentothal) Allergy Unknown Verified 02/19/25 13:15 wool Allergy Unknown Verified 02/19/25 13:15 Review of Systems 2 Review of Systems: All systems reviewed & are unremarkable except as noted in HPI and below PMFSH Past Medical History Medical History History of atrial fibrillation Failure to thrive CVA (cerebral vascular accident) Chronic anticoagulation Kidney stone Chronic anemia Chronic respiratory failure with hypoxia, on home oxygen therapy Bipolar disorder Gastroesophageal reflux disease Hyperlipidemia Hypertension Obstructive sleep apnea intolerant to CPAP Left tibial fracture Chronic hyponatremia Shingles Anxiety Depression Gastroparesis Diverticulitis Asthma Epilepsy no longer on medication Seasonal allergies Surgical History Surgical History History of left above knee amputation History of right shoulder replacement History of cholecystectomy History of left knee replacement History of hysterectomy History of open reduction and internal fixation (ORIF) procedure Left tibia and right ankle. History of appendectomy History of tonsillectomy Family History Family History Mother Suicide Depression Heart disease Hypertension Heart failure Sibling Suicide Father Diabetes mellitus Emphysema lung Social History Social History Social History: Surrogate medical decision maker: Martina Rodney, daughter. Code status: Full code. Smoking status: Never smoker Second hand tobacco smoke exposure: No Alcohol intake: never Substance use: never Substance use type: does not use Do You Feel Safe in your Home?: Yes Lack of Transportation: No Lack of Food: Never True Current Housing: I Have Housing Concerned About Future Housing: No Difficulty Paying Gas/Electric Bills: No Difficulty Paying for Meds: No Currently Unemployed: No Education: High School Diploma/GED Difficulty w/ Childcare or Family Care: No Living arrangements: custodial village Occupation/Education: retired Spiritual care concerns: No Agree to blood products: No Exam 2 Narrative: APPEARANCE: Ill-appearing HEAD: normocephalic, atraumatic. EYES: PERRLA/EOMI, conjunctivae clear. NOSE: Normal no drainage EARS:TMS clear with good light reflex. THROAT: Pharynx clear, no exudate. NECK: Supple. No adenopathy, no masses. RESPIRATORY: Airway patent, respirations nonlabored. Clear to auscultation bilaterally, no rales, rhonchi, wheezing. CARDIOVASCULAR: Regular rate and rhythm without murmurs rubs or gallops. ABDOMINAL: Soft, nontender, nondistended, normal bowel sounds MUSCULOSKELETAL: Moves all extremities. Strength/ROM intact, No edema, No calf tenderness. NEURO: Alert. Cranial nerves II through XII intact. Good gait. Good coordination SKIN: Warm, dry. Normal Color Course Vital Signs Vital signs: Vital Signs Temperature 97.6 F 02/19/25 12:46 Pulse Rate 36 L 02/19/25 12:46 Respiratory Rate 17 02/19/25 12:46 Blood Pressure 126/53 L 02/19/25 12:46 Pulse Oximetry 98 02/19/25 12:46 Oxygen Delivery Nasal Cannula 02/19/25 12:46 Oxygen Flow Rate 2 02/19/25 12:46 Temperature 97.8 F 02/19/25 17:12 Pulse Rate 36 L 02/19/25 18:01 Respiratory Rate 16 02/19/25 18:01 Blood Pressure 172/71 H 02/19/25 18:01 Pulse Oximetry 96 02/19/25 18:01 Oxygen Delivery Nasal Cannula 02/19/25 17:00 Oxygen Flow Rate 2 02/19/25 17:00 Medical Decision Making MDM Narrative Medical decision making narrative: 74-year-old female presents to the emergency department for evaluation for bradycardia. Patient's EKG show atrial fibrillation with slow ventricular response. Patient was treated with IM glucagon since patient does take metoprolol. Patient did have very pale conjunctiva but patient was Hemoccult negative on her digital rectal exam. Patient is afebrile with no leukocytosis and hemoglobin of 8.3 which is slightly decreased from her most recent admission. Patient had no response to the IM glucagon. No response to atropine. On further evaluation patient's EKG shows a complete heart block. I did consult Cardiology and patient was going to be transferred to the electrical laboratory technician for temporary pacer placement but patient has a latex allergy. Case was discussed with the ICU physician patient was admitted to the ICU. Patient family were updated on the results of the workup and plan for admission. Critical Care Procedure Note Authorized and Performed by: Pedro Luis Chandler Total critical care time: Approximately 36 minutes Due to a high probability of clinically significant, life threatening deterioration, the patient required my highest level of preparedness to intervene emergently and I personally spent this critical care time directly and personally managing the patient. This critical care time included obtaining a history; examining the patient; pulse oximetry; ordering and review of studies; arranging urgent treatment with development of a management plan; evaluation of patient's response to treatment; frequent reassessment; and, discussions with other providers. This critical care time was performed to assess and manage the high probability of imminent, life-threatening deterioration that could result in multi-organ failure. It was exclusive of separately billable procedures and treating other patients and teaching time. Please see MDM section and the rest of the note for further information on patient assessment and treatment. Differential Diagnosis Differential Diagnosis: A fib with slow ventricular response, bradycardia, complete heart block Vital Signs Vital Signs: Vital Signs Temperature 97.6 F 02/19/25 12:46 Pulse Rate 36 L 02/19/25 12:46 Respiratory Rate 17 02/19/25 12:46 Blood Pressure 126/53 L 02/19/25 12:46 Pulse Oximetry 98 02/19/25 12:46 Oxygen Delivery Nasal Cannula 02/19/25 12:46 Oxygen Flow Rate 2 02/19/25 12:46 Temperature 97.8 F 02/19/25 17:12 Pulse Rate 36 L 02/19/25 18:01 Respiratory Rate 16 02/19/25 18:01 Blood Pressure 172/71 H 02/19/25 18:01 Pulse Oximetry 96 02/19/25 18:01 Oxygen Delivery Nasal Cannula 02/19/25 17:00 Oxygen Flow Rate 2 02/19/25 17:00 Lab Data 02/19/25 13:12 02/19/25 13:12 Labs: Lab Results 02/19/25 02/19/25 Range/Units 13:12 13:12 WBC 7.3 (4.5-10.0) K/mm3 RBC 2.99 L (4.2-5.4) M/mm3 Hgb 8.3 L (12.0-15.0) g/dL Hct 25.9 L (37.0-47.0) % MCV 86.6 (80-100) fl MCH 27.8 (26-34) pg MCHC 32.0 (32-36) g/dl RDW 16.4 H (11.5-14.5) % Plt Count 188 (150-375) k/mm3 MPV 11.3 H (7.4-10.4) fl Immature Gran % (Auto) 0.7 H (0-0.5) % Neut % (Auto) 62.6 (45.5-73.1) % Lymph % (Auto) 19.4 (18.3-44.2) % [place] % (Auto) 12.5 H (2.6-8.5) % Eos % (Auto) 4.4 (0-4.4) % Baso % (Auto) 0.4 (0.2-1.2) % Lymph # (Auto) 1.41 (0.9-3.2) K/mm3 [place] # (Auto) 0.9 H (0.1-0.6) K/mm3 Eos # (Auto) 0.3 (0-0.3) K/mm3 Baso # (Auto) 0.0 (0.0-0.1) K/mm3 Abs Immat Gran (auto) 0.05 H (0.00-0.031) K/mm3 Absolute Neuts (auto) 4.6 (1.3-6.7) K/mm3 Absolute Nucleated RBC 0.000 (0.0-0.012) K/mm3 Nucleated RBC % 0.0 (0.0-0.2) % PT 16.7 H (11.1-14.7) Seconds INR 1.3 APTT 39.2 H (22.3-36.8) Seconds Sodium 124 L (137-145) mmol/L Potassium 4.6 (3.4-5.0) mmol/L Chloride 91 L (98-107) mmol/L Carbon Dioxide 26 (22-30) mmol/L Anion Gap 7 (4-12) mmol/L BUN 14 D (7-17) mg/dL Creatinine 0.62 L (0.7-1.0) mg/dL Estim Creat Clear Calc 77 ml/min Estimated GFR > 60 (59 - ) Glucose 109 (65-110) mg/dL Calcium 8.2 L (8.4-10.2) mg/dL Magnesium 1.6 Cancelled (1.6-2.3) mg/dL Total Bilirubin 0.2 (0.2-1.3) mg/dL AST 65 H (14-36) U/L ALT 66 H (6-35) U/L Alkaline Phosphatase 102 (38-126) U/L Troponin I 0.016 (0.000-0.034) ng/mL Total Protein 5.8 L (6.3-8.2) g/dL Albumin 3.1 L (3.5-5.1) g/dL Lipase < 10 L (23-300) U/L TSH (Reflex) 2.440 (0.465-4.68) uIU/mL ECG Data EKG #1: EKG Interpretation: bradycardia, junctional (Complete heart block), non- specific ST changes and widened QRS Critical Care Time Critical Care Time Critical Care Time: Yes Total Critical Care Time: 36 Discharge Plan Discharge Clinical Impression: Heart block, Bradycardia Patient Disposition: Still a Patient Condition: Critical
[2025-02-19 13:28] LABS: Alanine Aminotransferase 66 U/L (6-35); Albumin Level 3.1 g/dL (3.5-5.1); Alkaline Phosphatase 102 U/L (38-126); Anion Gap 7 mmol/L (4-12); Aspartate Amino Transferase 65 U/L (14-36); Bilirubin,Total 0.2 mg/dL (0.2-1.3); Blood Urea Nitrogen 14 mg/dL (7-17); Calcium 8.2 mg/dL (8.4-10.2); Carbon Dioxide 26 mmol/L (22-30); Chloride 91 mmol/L (98-107); Estimated CRCL calculation 77 ml/min; Estimated Glomerular Filt Rate > 60; Glucose 109 mg/dL (65-110); Potassium 4.6 mmol/L (3.4-5.0); Sodium 124 mmol/L (137-145); Total Protein 5.8 g/dL (6.3-8.2)
[2025-02-19 13:31] LABS: Lipase < 10 U/L (23-300)
[2025-02-19 13:40] LABS: Troponin I 0.016 ng/mL (0.000-0.034)
[2025-02-19 14:25] LABS: Thyroid Stimulating Hormone Reflex 2.440 uIU/mL (0.465-4.68)
[2025-02-19 14:26] LABS: Magnesium 1.6 mg/dL (1.6-2.3)
[2025-02-19 14:32] LABS: INR 1.3; Prothrombin Time 16.7 Seconds (11.1-14.7)
[2025-02-19 14:33] LABS: Partial Thromboplastin Time 39.2 Seconds (22.3-36.8)
--- NOTE | 2025-02-19 15:21 | ECG_ITS ---
Test Date: 2025-02-19 15:26:18 Measurements Intervals [place] Rate: 37 P: 0 LA: 0 QRS: -12 QRSD: 100 T: 0 QT: 518 QTc: 407 Interpretive Statements SINUS BRADYCARDIA SECOND DEGREE TYPE 2 AV BLOCK Electronically Signed On 02-20-2025 17:10:26 CDT by Vinod Deshpande D.O
[2025-02-19] MEDS: ATROPINE SULFATE 0.4 MG/ML VIAL IV PUSH (15:30)
--- NOTE | 2025-02-19 15:50 | PM.IMHP ---
H&P: HPI History of Present Illness Date/Time: 02/19/25 15:50 Chief Complaint: Weakness Narrative: 74 y/o F with PMH of chronic respiratory failure on supplemental O2 (2L NC), CVA, bipolar disorder, anxiety, failure to thrive, GERD, hyperlipidemia, hypertension, chronic hyponatremia, asthma, epilepsy not currently treated with antiepileptic medications and previous left BKA presents here with weakness, lethargy and shortness of breath. The patient presents here from [facility] via EMS on 02/19 for further evaluation of lethargy, weakness, and shortness of breath. She reports onset of the symptoms on Wednesday/Wednesday. There also accompanied by nausea however this is chronic secondary to gastroparesis. She denies chest pain, fever, chills, body aches, dyaruia, hematuria, urinary frequency or abdominal pain. Of note, the patient was found to be significantly bradycardic in the mid 30s upon arrival. She has no history of bradycardia or heart block. The patient was also recently discharged from [facility] where she had been treated for a urinary tract infection, hyponatremia, hypokalemia and hypocalcemia from 02/09-02/13. Has hx of chronic hyponatremia, reports she has been compliant with a fluid restriction. Initial VS at presentation: 97.6? F, HR 36, R 17, 126/83, and 98% on 2L nasal cannula. ED workup showed: No leukocytosis, hemoglobin 8.3, INR 1.3, sodium 124 (133 on 02/13), creatinine 0.62 and GFR >60, calcium 8.2/albumin 3.1, initial troponin 0.016, and TSH 2.44. CXR showed significant peribronchial thickening with mild pulmonary vascular congestion and a left-sided pleural effusion. Initial EKG showed AFib with slow ventricular response, voltage criteria for LVH, rate 36 (awaiting formal read). Review of Systems Review of Systems: All systems reviewed & are unremarkable except as noted in HPI and below [facility] Past Medical History Medical History History of atrial fibrillation Failure to thrive CVA (cerebral vascular accident) Chronic anticoagulation Kidney stone Chronic anemia Chronic respiratory failure with hypoxia, on home oxygen therapy Bipolar disorder Gastroesophageal reflux disease Hyperlipidemia Hypertension Obstructive sleep apnea intolerant to CPAP Left tibial fracture Chronic hyponatremia Shingles Anxiety Depression Gastroparesis Diverticulitis Asthma Epilepsy no longer on medication Seasonal allergies Surgical History Surgical History History of left above knee amputation History of right shoulder replacement History of cholecystectomy History of left knee replacement History of hysterectomy History of open reduction and internal fixation (ORIF) procedure Left tibia and right ankle. History of appendectomy History of tonsillectomy Family History Family History Mother Suicide Depression Heart disease Hypertension Heart failure Sibling Suicide Father Diabetes mellitus Emphysema lung Social History Social History Social History: Surrogate medical decision maker: Martina Rodney, daughter. Code status: Full code. Smoking status: Never smoker Second hand tobacco smoke exposure: No Alcohol intake: never Substance use: never Substance use type: does not use Do You Feel Safe in your Home?: Yes Lack of Transportation: No Lack of Food: Never True Current Housing: I Have Housing Concerned About Future Housing: No Difficulty Paying Gas/Electric Bills: No Difficulty Paying for Meds: No Currently Unemployed: No Education: High School Diploma/GED Difficulty w/ Childcare or Family Care: No [place] Occupation/Education: retired Spiritual care concerns: No Agree to blood products: No Meds Home Medications and Allergies Home Medications ?Medication ?Instructions ?Recorded ?Confirmed ?Type fluticasone propionate 50 1 spray intranasal DAILY 09/09/19 02/19/25 History mcg/actuation nasal spray,suspension docusate sodium 100 mg tablet 200 mg PO BID Constipation 05/31/20 02/19/25 History amlodipine 10 mg tablet 10 mg PO DAILY 04/23/24 02/19/25 History bisacodyl 5 mg tablet,delayed 10 mg PO HS PRN Constipation 04/23/24 02/19/25 History release (Dulcolax (bisacodyl)) guaifenesin 1,200 mg tablet, 1,200 mg PO Q12H 04/23/24 02/19/25 History extended release 12 hr (Mucinex) memantine 5 mg tablet 5 mg PO BID 04/23/24 02/19/25 History ondansetron HCl 4 mg tablet 4 mg PO TID 04/23/24 02/19/25 History pregabalin 150 mg capsule (Lyrica) 150 mg PO BID #14 caps 05/04/24 02/19/25 Rx isosorbide mononitrate 30 mg 30 mg PO DAILY 08/06/24 02/19/25 History tablet,extended release 24 hr lidocaine 5 % topical patch 2 patch topical HS 08/06/24 02/19/25 History (Lidoderm) magnesium hydroxide 400 mg/5 mL 30 ml PO DAILY PRN constipation 08/06/24 02/19/25 History oral suspension (Gentle Laxative (magnesium hydroxide)) rivaroxaban 20 mg tablet (Xarelto) 20 mg PO DAILY@1700 #60 tabs 10/07/24 02/19/25 Rx irbesartan 150 mg tablet 300 mg (2 x 150 mg) PO QAM #30 tabs 10/12/24 02/19/25 Rx oxycodone-acetaminophen 5 mg-325 1 tablet PO Q8H PRN Pain Rated 10/12/24 02/19/25 Rx mg tablet 7-10 #10 tabs atorvastatin 10 mg tablet (Lipitor) 10 mg PO HS 01/18/25 02/19/25 History buspirone 10 mg tablet 10 mg PO Q12H 01/18/25 02/19/25 History clonazepam 0.5 mg tablet 0.5 mg PO Q12H 01/18/25 02/19/25 History famciclovir 250 mg tablet 250 mg PO Q12H 01/18/25 02/19/25 History lactulose 10 gram/15 mL oral 30 g PO BID 01/18/25 02/19/25 History solution (Enulose) magnesium citrate 300 ml PO DAILY PRN constipation 01/18/25 02/19/25 History polyvinyl alcohol-povidone 0.5 2 drp EACH EYE BID PRN dry eye(s) 01/18/25 02/19/25 History %-0.6 % eye drops (Artificial Tears (polyvinyl alcohol/povidone)) primidone 50 mg tablet See Rx Instructions .Route .COMPLEX 01/18/25 02/19/25 History sennosides 8.6 mg-docusate sodium 2 tab-cap PO BID 01/18/25 02/19/25 History 50 mg tablet (Senna Plus) spironolactone 25 mg tablet 25 mg PO DAILY 01/18/25 02/19/25 History venlafaxine 37.5 mg 37.5 mg PO DAILY 01/18/25 02/19/25 History capsule,extended release 24 hr zolpidem 5 mg tablet 5 mg PO HS 01/18/25 02/19/25 History clonidine 0.1 mg/24 hr weekly 1 patch transdermal WEEKLY #4 ea 01/21/25 02/19/25 Rx transdermal patch famotidine 10 mg tablet (Heartburn 10 mg PO DAILY 02/08/25 02/19/25 History Relief (famotidine)) metoprolol succinate 100 mg 300 mg PO QAM 02/08/25 02/19/25 History tablet,extended release 24 hr (Toprol XL) tizanidine 2 mg tablet 2 mg PO Q12H 02/08/25 02/19/25 History cefdinir 300 mg capsule 300 mg PO Q12H #10 caps 02/12/25 02/19/25 Rx hydralazine 50 mg tablet 50 mg PO Q8HR #30 tabs 02/12/25 02/19/25 Rx ipratropium 0.5 mg-albuterol 3 mg 3 ml inhalation Q6HRT PRN Wheezing 02/12/25 02/19/25 Rx (2.5 mg base)/3 mL nebulization #30 vials soln polyethylene glycol 3350 17 17 g PO DAILY 02/19/25 02/19/25 History gram/dose oral powder polyvinyl alcohol 1.4 % eye drops 2 drp EACH EYE BID 02/19/25 02/19/25 History (Artificial Tears (polyvinyl alcohol)) sodium chloride 1,000 mg soluble 1,000 mg PO BID 02/19/25 02/19/25 History tablet Allergies Allergy/AdvReac Type Severity Reaction Status Date / Time Fish Containing Products Allergy Severe Dyspnea / Verified 02/19/25 13:15 SOB Iodinated Contrast Media Allergy Intermediate HIVES, RED Verified 02/19/25 13:15 FACE iodine Allergy Unknown Unknown Verified 02/19/25 13:15 Barbiturates Allergy Unknown Verified 02/19/25 13:15 bupivacaine Allergy Unknown Verified 02/19/25 13:15 diazepam (From Valium) Allergy Unknown Verified 02/19/25 13:15 latex Allergy Unknown Verified 02/19/25 13:15 menthol Allergy Unknown Verified 02/19/25 13:15 Sulfa (Sulfonamide Allergy Unknown Verified 02/19/25 13:15 Antibiotics) thiopental (From Pentothal) Allergy Unknown Verified 02/19/25 13:15 wool Allergy Unknown Verified 02/19/25 13:15 Vital Signs Vital Signs - 24 hr 02/19/25 12:46 02/19/25 13:10 02/19/25 13:10 Temperature 97.6 F Pulse Rate 36 L 35 L Respiratory Rate 17 Blood Pressure 126/53 L Pulse Oximetry 98 99 Oxygen Delivery Nasal Cannula Nasal Cannula Oxygen Flow Rate 2 2 02/19/25 13:12 02/19/25 14:07 02/19/25 14:19 Temperature Pulse Rate 37 L 36 L Respiratory Rate 13 12 Blood Pressure 113/58 L 115/44 L Pulse Oximetry 98 97 97 Oxygen Delivery Nasal Cannula Oxygen Flow Rate 2 02/19/25 15:03 02/19/25 15:35 02/19/25 15:46 Temperature Pulse Rate 35 L 40 L 39 L Respiratory Rate 13 13 14 Blood Pressure 127/48 L 141/52 H 142/53 H Pulse Oximetry 97 98 99 Oxygen Delivery Oxygen Flow Rate Exam Const: General: comfortable and no acute distress Other: , female, elderly, nontoxic appearance HENMT: Face/Nose/Sinus: Normal nares present Mouth: Yes moist mucous membranes Eyes: General: appearance normal, both eyes and all related structures Sclera: sclerae normal Pupils: Equal, round and reactive pupils present EOM: EOMs intact bilaterally Resp: Effort & Inspection: normal respiratory effort Auscultation: clear to auscultation bilaterally Cardio: Rate: bradycardic Rhythm: regular rhythm Other: S1-S2 present without murmur, rub, ectopy GI: Other: Abdomen soft, nondistended, nontender. Normoactive bowel sounds in all quadrants. Skin: General skin exam: normal color and no rashes or lesions noted Wounds: no wounds Neuro: Speech: normal speech Sensory Exam: normal sensation Other: A&O x4, +5 in bilateral upper extremities and right lower extremity Extrem: Other: AKA to the left lower extremity. +1 pitting edema to the right lower extremity. Psych: Mental Status: mental status grossly normal Affect: normal affect Other: Good insight and judgment, pleasant H&P: Results Labs Labs: Short CBC 02/19/25 Range/Units 13:12 WBC 7.3 (4.5-10.0) K/mm3 Hgb 8.3 L (12.0-15.0) g/dL Hct 25.9 L (37.0-47.0) % Plt Count 188 (150-375) k/mm3 BMP 02/19/25 13:12 Sodium 124 L Potassium 4.6 Chloride 91 L Carbon Dioxide 26 BUN 14 D Creatinine 0.62 L Glucose 109 Calcium 8.2 L Cardiac Enzymes 02/19/25 Range/Units 13:12 Troponin I 0.016 (0.000-0.034) ng/mL Liver Function 02/19/25 Range/Units 13:12 Total Bilirubin 0.2 (0.2-1.3) mg/dL AST 65 H (14-36) U/L ALT 66 H (6-35) U/L Alkaline Phosphatase 102 (38-126) U/L Albumin 3.1 L (3.5-5.1) g/dL Assessment and Plan Assessment and plan (1) Bradycardia: Code(s): R00.1 - Bradycardia, unspecified Status: Acute Assessment and Plan: - EKG, intial: AFib with slow ventricular response, voltage criteria for LVH, rate 36 (awaiting formal read). However after review by the ED provider, p-waves noted. - glucagon give in ED with no improvement - cardiology consulted, plan for temporary pacemaker on 02/19 with admit to the ICU post-procedure -> unable to place temporary due to latex allergy. plan for BB washout while contacting housing quality standard inspector who is able to perform permanent pacemaker. - Mag 1.6, plan for repletion with 2G IVPB - unload associate consulted - hold home BB - telemetry (2) Atrial fibrillation with RVR: Code(s): I48.91 - Unspecified atrial fibrillation Status: Acute Assessment and Plan: - hold home metoprolol 100 mg ER - continue Xarelto (3) Chronic hyponatremia: Code(s): E87.1 - Hypo-osmolality and hyponatremia Status: Acute Assessment and Plan: - acute on chronic - Na 124 upon admission, previously 133 on 02/13 - baseline in the 130's - reviewed nephrology's note from previous admission (02/13): [place] chronic hyponatremia due to multiple issues including pulmonary disease, ppi, poor osmolar intake with more generous fluid intake, passed narcotics, new development of multiple cerebellar strokes. - fluid restriction: 1,500 mL - continue home NaCl 1G BID - plan for recheck of sodium this evening prior to interventions to confirm level as the patient corrected from the 113 to 128 without intervention during her most recent admission (4) Chronic anemia: Code(s): D64.9 - Anemia, unspecified Status: Acute Assessment and Plan: - Hgb 8.3 upon admission - baseline: - - hemoccult negative on LYNNE - transfuse if <7 - trend H&H (5) HTN (hypertension): Qualifiers: Hypertension type: essential hypertension Qualified Code(s): I10 - Essential (primary) hypertension Code(s): I10 - Essential (primary) hypertension Status: Chronic Assessment and Plan: - chronic, currently 157/61 - continue home medications - monitor Plan Diet: Heart healthy GI Prophylaxis: N/a DVT Prophylaxis: Xarelto IV fluids: None Lines/Tubes: Peripheral IV Code Status: DNR Quality VTE Prophylaxis VTE prophylaxis: pharmacologic ordered Critical Care Time: I personally spent 35 minutes of direct patient care including (but not limited to) the physical examination, decision-making, bedside evaluation, review of medical records, review of labs and imaging, discussion with nursing staff and other providers for collaborative, critical care management of this patient. Hospitalist [facility] Advance Care Plan I have confirmed that the patient's Advanced Care Plan is present, code status is documented, or surrogate decision maker is listed in patient medical record.: Yes Medication Reconciliation I have utilized all available resources to obtain, update and review the patients current medications (includes all prescriptions, OTC, herbals, cannabis, and nutritional supplements).: Yes
--- NOTE | 2025-02-19 16:10 | PC.NURSE ---
This RN spoke with Linh at [facility] and informed her that the pt is to be admitted to this hospital
[2025-02-19 16:44] LABS: Troponin I 0.014 ng/mL (0.000-0.034)
--- NOTE | 2025-02-19 16:52 | PC.NURSE ---
This RN called report to Lucia BEJARANO in ICU, all questions answered
[2025-02-19] MEDS: MAGNESIUM SULF 2 GM/WATER 50ML 2 GM/50 ML BAG IVPB (17:07)
--- NOTE | 2025-02-19 17:17 | P.CONCA_ITS ---
Assessment and Plan Assessment and plan (1) Complete heart block: Code(s): I44.2 - Atrioventricular block, complete Status: Acute Plan Complete heart block with narrow complex junctional escape rhythm-stable blood pressure with SBP in the 150s-most likely secondary to beta blockade with metoprolol 300 mg daily (home medication); Thyroid function is normal. Troponins x2 negative Allergy to latex Paroxysmal atrial fibrillation on chronic anticoagulation with Xarelto History CVA Hypertension Hyperlipidemia Obstructive sleep apnea intolerant to CPAP Chronic anemia Asthma Chronic respiratory failure with hypoxia on 2 L of home oxygen Chronic hyponatremia History of left BKA Plan: -Patient is hemodynamically stable with systolic blood pressure in the 150s. No indication for TVP. Admit to ICU. Stop metoprolol and evaluate for reversible causes of complete heart block. If she continues to have complete heart block or high-grade 2nd degree block after metoprolol washout she will need permanent pacemaker placement. Place external pacing pads and pace if she becomes unstable. Atropine 0.5 mg IV p.r.n. if she becomes unstable -Stop metoprolol. Avoid any AV caitlin blocking agents -Monitor on telemetry -Check and replace electrolytes to keep potassium greater than 4 and magnesium greater than 2 -She is on multiple blood pressure lowering medications at home including amlodipine, irbesartan, hydralazine, spironolactone, Imdur. Recommend holding blood pressure meds to avoid any hypotension. Start antihypertensive medication if SBP greater than 160 mm Hg -Continue atorvastatin -Continue Xarelto for AFib -Management of other medical problems per ICU team -Plan was discussed with patient that and she is agreeable History of Present Illness History of Present Illness Consult date/time: 02/19/25 17:17 Reason For Visit: bradycardia,pulmonary edema Narrative: 54-year-old female with history of atrial fibrillation, CVA on chronic anticoagulation, hypertension, hyperlipidemia, obstructive sleep apnea intolerant to CPAP, chronic anemia, asthma, chronic respiratory failure with hypoxia on 2 L of home oxygen, GERD, epilepsy no longer on meds, bipolar disorder, failure to thrive, chronic hyponatremia, history of left BKA, recent hospital admission at [facility] from 02/10/2020 11/30/201909/19 for UTI, hyponatremia, hypokalemia and hypocalcemia presented to [facility] from [facility] with chief complaints of weakness, lethargy, and shortness of breath. In the ER she was noted to be bradycardic in the mid 30s to the low 40s. Blood pressure is stable with SBP in the 150s. EKG showed complete heart block with narrow complex junctional escape. Cardiology is consulted for further management. Patient denies any chest pain, palpitations, dizziness, lightheadedness, presyncope, syncope, or recent weight gain. She reports chronic leg swelling which is unchanged since her recent hospital discharge. She denies any prior history of bradycardia. She was taking 300 mg of metoprolol which has been held upon presentation here at [facility]. Workup: Hemoglobin: 8.3 Sodium: 124 (133 on 02/13) Creatinine: 0.62 Troponin: 0.016, 0.014 TSH: 2.44 CXR: showed significant peribronchial thickening with mild pulmonary vascular congestion and a left-sided pleural effusion. EKG: Complete heart block with narrow complex junctional escape rhythm. Review of Systems 2 Review of Systems: A complete review of systems was performed and negative other than those mentioned in the HPI. [facility] Past Medical History Medical History History of atrial fibrillation Failure to thrive CVA (cerebral vascular accident) Chronic anticoagulation Kidney stone Chronic anemia Chronic respiratory failure with hypoxia, on home oxygen therapy Bipolar disorder Gastroesophageal reflux disease Hyperlipidemia Hypertension Obstructive sleep apnea intolerant to CPAP Left tibial fracture Chronic hyponatremia Shingles Anxiety Depression Gastroparesis Diverticulitis Asthma Epilepsy no longer on medication Seasonal allergies Surgical History Surgical History History of left above knee amputation History of right shoulder replacement History of cholecystectomy History of left knee replacement History of hysterectomy History of open reduction and internal fixation (ORIF) procedure Left tibia and right ankle. History of appendectomy History of tonsillectomy Family History Family History Mother Suicide Depression Heart disease Hypertension Heart failure Sibling Suicide Father Diabetes mellitus Emphysema lung Social History Social History Social History: Surrogate medical decision maker: Martina Rodney, daughter. Code status: Full code. Smoking status: Never smoker Second hand tobacco smoke exposure: No Alcohol intake: never Substance use: never Substance use type: does not use Do You Feel Safe in your Home?: Yes Lack of Transportation: No Lack of Food: Never True Current Housing: I Have Housing Concerned About Future Housing: No Difficulty Paying Gas/Electric Bills: No Difficulty Paying for Meds: No Currently Unemployed: No Education: High School Diploma/GED Difficulty w/ Childcare or Family Care: No Living arrangements: skilled nursing village Occupation/Education: retired Spiritual care concerns: No Agree to blood products: No Meds Home Medications and Allergies Home Medications ?Medication ?Instructions ?Recorded ?Confirmed ?Type fluticasone propionate 50 1 spray intranasal DAILY 09/09/19 02/08/25 History mcg/actuation nasal spray,suspension docusate sodium 100 mg tablet 200 mg PO BID Constipation 05/31/20 02/08/25 History amlodipine 10 mg tablet 10 mg PO DAILY 04/23/24 02/08/25 History bisacodyl 5 mg tablet,delayed 10 mg PO HS PRN Constipation 04/23/24 02/08/25 History release (Dulcolax (bisacodyl)) guaifenesin 1,200 mg tablet, 1,200 mg PO BID 04/23/24 02/08/25 History extended release 12 hr (Mucinex) memantine 5 mg tablet 5 mg PO BID 04/23/24 02/08/25 History ondansetron HCl 4 mg tablet 4 mg PO TID 04/23/24 02/08/25 History polyethylene glycol 3350 17 17 g PO DAILY PRN Constipation 04/23/24 02/08/25 History gram/dose oral powder (Miralax) pregabalin 150 mg capsule (Lyrica) 150 mg PO BID #14 caps 05/04/24 02/08/25 Rx isosorbide mononitrate 30 mg 30 mg PO DAILY 08/06/24 02/08/25 History tablet,extended release 24 hr lidocaine 5 % topical patch 2 patch topical HS 08/06/24 02/08/25 History (Lidoderm) magnesium hydroxide 400 mg/5 mL 30 ml PO DAILY PRN constipation 08/06/24 02/08/25 History oral suspension (Gentle Laxative (magnesium hydroxide)) rivaroxaban 20 mg tablet (Xarelto) 20 mg PO DAILY@1700 #60 tabs 10/07/24 02/08/25 Rx irbesartan 150 mg tablet 300 mg (2 x 150 mg) PO QAM #30 tabs 10/12/24 02/08/25 Rx oxycodone-acetaminophen 5 mg-325 1 tablet PO Q8H PRN Pain Rated 10/12/24 02/08/25 Rx mg tablet 7-10 #10 tabs atorvastatin 10 mg tablet (Lipitor) 10 mg PO HS 01/18/25 02/08/25 History buspirone 10 mg tablet 10 mg PO TID 01/18/25 02/08/25 History clonazepam 0.5 mg tablet 0.5 mg PO Q12H 01/18/25 02/08/25 History famciclovir 250 mg tablet 250 mg PO Q12H 01/18/25 02/08/25 History hydralazine 10 mg tablet 50 mg PO TID 01/18/25 02/08/25 History lactulose 10 gram/15 mL oral 30 g PO BID 01/18/25 02/08/25 History solution (Enulose) magnesium citrate 300 ml PO DAILY PRN constipation 01/18/25 02/08/25 History polyvinyl alcohol-povidone 0.5 2 drp EACH EYE BID PRN dry eye(s) 01/18/25 02/08/25 History %-0.6 % eye drops (Artificial Tears (polyvinyl alcohol/povidone)) primidone 50 mg tablet See Rx Instructions .Route .COMPLEX 01/18/25 02/08/25 History sennosides 8.6 mg-docusate sodium 2 tab-cap PO BID 01/18/25 02/08/25 History 50 mg tablet (Senna Plus) spironolactone 25 mg tablet 25 mg PO DAILY 01/18/25 02/08/25 History venlafaxine 37.5 mg 37.5 mg PO DAILY 01/18/25 02/08/25 History capsule,extended release 24 hr zolpidem 5 mg tablet 5 mg PO HS 01/18/25 02/08/25 History clonidine 0.1 mg/24 hr weekly 1 patch transdermal WEEKLY #4 ea 01/21/25 02/08/25 Rx transdermal patch famotidine 10 mg tablet (Heartburn 10 mg PO DAILY 02/08/25 02/08/25 History Relief (famotidine)) metoprolol succinate 100 mg 300 mg PO QAM 02/08/25 02/08/25 History tablet,extended release 24 hr (Toprol XL) tizanidine 2 mg tablet 2 mg PO BID 02/08/25 02/08/25 History cefdinir 300 mg capsule 300 mg PO Q12H #10 caps 02/12/25 Rx hydralazine 50 mg tablet 50 mg PO Q8HR #30 tabs 02/12/25 Rx ipratropium 0.5 mg-albuterol 3 mg 3 ml inhalation Q6HRT PRN Wheezing 02/12/25 Rx (2.5 mg base)/3 mL nebulization #30 vials soln sodium chloride 1,000 mg soluble 500 mg (1/2 x 1,000 mg) PO BID #60 02/12/25 Rx tablet tabs Allergies Allergy/AdvReac Type Severity Reaction Status Date / Time Fish Containing Products Allergy Severe Dyspnea / Verified 02/19/25 13:15 SOB Iodinated Contrast Media Allergy Intermediate HIVES, RED Verified 02/19/25 13:15 FACE iodine Allergy Unknown Unknown Verified 02/19/25 13:15 Barbiturates Allergy Unknown Verified 02/19/25 13:15 bupivacaine Allergy Unknown Verified 02/19/25 13:15 diazepam (From Valium) Allergy Unknown Verified 02/19/25 13:15 latex Allergy Unknown Verified 02/19/25 13:15 menthol Allergy Unknown Verified 02/19/25 13:15 Sulfa (Sulfonamide Allergy Unknown Verified 02/19/25 13:15 Antibiotics) thiopental (From Pentothal) Allergy Unknown Verified 02/19/25 13:15 wool Allergy Unknown Verified 02/19/25 13:15 Vital Signs Vital Signs - 24 hr 02/19/25 12:46 02/19/25 13:10 02/19/25 13:10 Temperature 36.4 C Pulse Rate 36 L 35 L Respiratory Rate 17 Blood Pressure 126/53 L Pulse Oximetry 98 99 Oxygen Delivery Nasal Cannula Nasal Cannula Oxygen Flow Rate 2 2 02/19/25 13:12 02/19/25 14:07 02/19/25 14:19 Temperature Pulse Rate 37 L 36 L Respiratory Rate 13 12 Blood Pressure 113/58 L 115/44 L Pulse Oximetry 98 97 97 Oxygen Delivery Nasal Cannula Oxygen Flow Rate 2 02/19/25 15:03 02/19/25 15:35 02/19/25 15:46 Temperature Pulse Rate 35 L 40 L 39 L Respiratory Rate 13 13 14 Blood Pressure 127/48 L 141/52 H 142/53 H Pulse Oximetry 97 98 99 Oxygen Delivery Oxygen Flow Rate 02/19/25 16:22 02/19/25 16:35 02/19/25 17:12 Temperature 36.4 C L 36.6 C Pulse Rate 38 L 38 L 40 L Respiratory Rate 13 14 14 Blood Pressure 146/63 H 132/71 157/61 H Pulse Oximetry 97 100 99 Oxygen Delivery Oxygen Flow Rate Exam 2 Narrative: General: Alert oriented x3, no acute distress Neck: Supple, JVD + Chest: Bibasilar rales present, no rhonchi Cardiac: S1, S2 +, regular rate, regular rhythm, no murmurs or rubs Extremities: Bilateral lower extremity edema 2+, no skin rash Neurologic: Alert and oriented x3, no focal neurological deficits Results Labs and Meds 02/19/25 13:12 02/19/25 13:12 Lab results: Cardiac Enzymes 02/19/25 02/19/25 Range/Units 13:12 15:59 AST 65 H (14-36) U/L Troponin I 0.016 0.014 (0.000-0.034) ng/mL Coagulation 02/19/25 Range/Units 13:12 PT 16.7 H (11.1-14.7) Seconds APTT 39.2 H (22.3-36.8) Seconds CBC 02/19/25 Range/Units 13:12 WBC 7.3 (4.5-10.0) K/mm3 RBC 2.99 L (4.2-5.4) M/mm3 Hgb 8.3 L (12.0-15.0) g/dL Hct 25.9 L (37.0-47.0) % Plt Count 188 (150-375) k/mm3 Lymph # (Auto) 1.41 (0.9-3.2) K/mm3 [place] # (Auto) 0.9 H (0.1-0.6) K/mm3 Eos # (Auto) 0.3 (0-0.3) K/mm3 Baso # (Auto) 0.0 (0.0-0.1) K/mm3 Comprehensive Metabolic Panel 02/19/25 Range/Units 13:12 Sodium 124 L (137-145) mmol/L Potassium 4.6 (3.4-5.0) mmol/L Chloride 91 L (98-107) mmol/L Carbon Dioxide 26 (22-30) mmol/L BUN 14 D (7-17) mg/dL Creatinine 0.62 L (0.7-1.0) mg/dL Glucose 109 (65-110) mg/dL Calcium 8.2 L (8.4-10.2) mg/dL AST 65 H (14-36) U/L ALT 66 H (6-35) U/L Alkaline Phosphatase 102 (38-126) U/L Total Protein 5.8 L (6.3-8.2) g/dL Albumin 3.1 L (3.5-5.1) g/dL Patient Weight 02/19/25 23:59 Weight 102.5 kg
--- NOTE | 2025-02-19 17:31 | ADMGEN ---
This patient, Celestina Ewing, was admitted to Intensive Care Unit-9. Patient/family oriented to hospital policies and general routines including ID bracelet, bed and alarms, visiting hours, pain management, procedures, bathroom and other care routines, personal items, smoking policy, room service/diet, and visiting hours. Information on how to activate the Rapid Response Team has been discussed. Patient/Family are encouraged to report perceived risks to care and to ask questions if they do not understand what they are told or what they should do.
[2025-02-19 19:13] LABS: MRSA (PCR) NOT DETECTED (NOT DETECTE)
[2025-02-19 21:09] LABS: Anion Gap 9 mmol/L (4-12); Blood Urea Nitrogen 14 mg/dL (7-17); Calcium 8.7 mg/dL (8.4-10.2); Carbon Dioxide 27 mmol/L (22-30); Chloride 88 mmol/L (98-107); Estimated CRCL calculation 63 ml/min; Estimated Glomerular Filt Rate > 60; Glucose 114 mg/dL (65-110); Magnesium 2.1 mg/dL (1.6-2.3); Potassium 4.7 mmol/L (3.4-5.0); Sodium 124 mmol/L (137-145)
[2025-02-19 21:21] LABS: Troponin I < 0.012 ng/mL (0.000-0.034)
[2025-02-20] VITALS (15 sets, daily range): BP systolic 108–206; BP diastolic 37–78; PULSE 31–43; RESP 12–20; TEMP 36.2–36.8; O2SAT 95–99
[2025-02-20] MEDS: DOCUSATE SODIUM 100 MG CAPSULE 200 MG PO (00:25)
[2025-02-20] MEDS: oxyCODONE/ACETAMINOPHEN (*CRX) 5-325 MG TABLET 1 TABLET PO ×3 (00:25→18:01)
[2025-02-20] MEDS: ONDANSETRON HCL ODT 4 MG TABLET PO ×3 (05:25→22:20)
[2025-02-20 05:38] LABS: Hematocrit 30.6 % (37.0-47.0); Hemoglobin 9.9 g/dL (12.0-15.0); Immature Granulocyte Percent A 0.5 % (0-0.5); Lymphocytes Absolute Auto 2.54 K/mm3 (0.9-3.2); Mean Corpuscular HGB Conc 32.4 g/dl (32-36); Mean Corpuscular Hemoglobin 28.1 pg (26-34); Mean Corpuscular Volume 86.9 fl (80-100); Nucleated Red Blood Cells Absolute Auto 0.000 K/mm3 (0.0-0.012); Nucleated Red Blood Cells Perc 0.0 % (0.0-0.2); Platelet Count Result 248 k/mm3 (150-375); Red Blood Count 3.52 M/mm3 (4.2-5.4); White Blood Count 11.6 K/mm3 (4.5-10.0)
[2025-02-20 06:03] LABS: Alanine Aminotransferase 127 U/L (6-35); Albumin Level 3.8 g/dL (3.5-5.1); Alkaline Phosphatase 123 U/L (38-126); Anion Gap 8 mmol/L (4-12); Aspartate Amino Transferase 115 U/L (14-36); Bilirubin,Total 0.4 mg/dL (0.2-1.3); Blood Urea Nitrogen 14 mg/dL (7-17); Calcium 8.6 mg/dL (8.4-10.2); Carbon Dioxide 25 mmol/L (22-30); Chloride 87 mmol/L (98-107); Estimated CRCL calculation 68 ml/min; Estimated Glomerular Filt Rate > 60; Glucose 91 mg/dL (65-110); Magnesium 2.1 mg/dL (1.6-2.3); Potassium 4.8 mmol/L (3.4-5.0); Sodium 120 mmol/L (137-145); Total Protein 6.8 g/dL (6.3-8.2)
[2025-02-20] MEDS: FUROSEMIDE INJ 40 MG/4 ML VIAL IV PUSH ×2 (07:46→16:55)
[2025-02-20 08:25] LABS: NT Pro B Type Natriuretic Pept 2980 pg/mL (19.9-100)
[2025-02-20] MEDS: CEFDINIR 300 MG CAPSULE PO ×2 (08:25→22:19)
[2025-02-20] MEDS: SODIUM CHLORIDE 1 GM TABLET PO ×2 (08:25→16:55)
[2025-02-20] MEDS: FAMOTIDINE 10 MG TABLET PO (08:25)
[2025-02-20] MEDS: SENNA/DOCUSATE SODIUM TABLET 2 TAB PO ×2 (08:26→22:19)
[2025-02-20] MEDS: MEMANTINE 5 MG TABLET PO ×2 (08:26→22:19)
[2025-02-20] MEDS: FAMCICLOVIR 250 MG TABLET PO ×2 (08:26→22:19)
[2025-02-20] MEDS: TIZANIDINE HCL 2 MG TABLET PO ×2 (08:26→22:19)
[2025-02-20] MEDS: clonazePAM (*CRX) 0.5 MG TABLET PO ×2 (08:26→22:19)
[2025-02-20] MEDS: VENLAFAXINE HCL XR 37.5 MG CAP PO (08:26)
[2025-02-20] MEDS: ARTIFICIAL TEARS OPHTH SOLN 15 ML BOTTLE 2 DROP EACH EYE ×2 (08:27→22:20)
[2025-02-20] MEDS: IRBESARTAN 150 MG TABLET 300 MG PO (08:27)
[2025-02-20] MEDS: SPIRONOLACTONE 25 MG TABLET PO (08:38)
[2025-02-20] MEDS: FLUTICASONE PROPIONATE 0.05% NA SPR 16 GM BTL (*BKC) 1 SPRAY NASAL (08:39)
--- NOTE | 2025-02-20 09:07 | P.PNCA_ITS ---
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 It may take 24-48 hours for metoprolol to were showed from her system. Will continue to monitor another day to determine if she will need a permanent pacemaker -Avoid AV caitlin blocking agents -Monitor on telemetry -Check and replace electrolytes to keep potassium greater than 4 and magnesium greater than 2 -Resume home antihypertensive meds amlodipine, irbesartan, hydralazine, spironolactone, and Imdur sequentially avoiding any hypotension -Continue atorvastatin -Holding Xarelto in case she needs permanent pacemaker placement tomorrow. Her last dose was on Wednesday -Management of other medical problems per ICU team -Plan was discussed with patient and her daughter was at bedside that and she is agreeable. Plan also discussed with ICU attending Subjective Date/time seen: 02/20/25 09:07 Interval history: Reason for encounter: Complete heart block, second-degree heart block Interval history: Telemetry shows dose to 1 block with narrow QRS. No chest pain, shortness breath, dizziness, palpitations. Patient is more awake and alert this morning. Telemetry shows heart rate in the 30s. SBP is in the 200s. Review of Systems Cardiovascular: Comments: As per HPI Respiratory: Comments: As per HPI Exam Narrative: General: Alert oriented x3, no acute distress Neck: Supple, JVD + Chest: Bibasilar rales, no rhonchi Cardiac: S1, S2 +, regular rate, regular rhythm, no murmurs or rubs Extremities: Bilateral lower extremity edema 2+, no skin rash Neurologic: Alert and oriented x3, no focal neurological deficits Objective Data Vital Signs Vital Signs: Vital Signs - 24 hr 02/19/25 12:46 02/19/25 13:10 02/19/25 13:10 Temperature 36.4 C Pulse Rate 36 L 35 L Respiratory Rate 17 Blood Pressure 126/53 L Pulse Oximetry 98 99 Oxygen Delivery Nasal Cannula Nasal Cannula Oxygen Flow Rate 2 2 02/19/25 13:12 02/19/25 14:07 02/19/25 14:19 Temperature Pulse Rate 37 L 36 L Respiratory Rate 13 12 Blood Pressure 113/58 L 115/44 L Pulse Oximetry 98 97 97 Oxygen Delivery Nasal Cannula Oxygen Flow Rate 2 02/19/25 15:03 02/19/25 15:35 02/19/25 15:46 Temperature Pulse Rate 35 L 40 L 39 L Respiratory Rate 13 13 14 Blood Pressure 127/48 L 141/52 H 142/53 H Pulse Oximetry 97 98 99 Oxygen Delivery Oxygen Flow Rate 02/19/25 16:22 02/19/25 16:35 02/19/25 17:00 Temperature 36.4 C L Pulse Rate 38 L 38 L 40 L Respiratory Rate 13 14 14 Blood Pressure 146/63 H 132/71 Pulse Oximetry 97 100 99 Oxygen Delivery Nasal Cannula Oxygen Flow Rate 2 02/19/25 17:00 02/19/25 17:12 02/19/25 18:00 Temperature 36.6 C Pulse Rate 39 L 40 L 39 L Respiratory Rate 14 Blood Pressure 157/61 H Pulse Oximetry 99 Oxygen Delivery Oxygen Flow Rate 02/19/25 18:01 02/19/25 20:00 02/19/25 20:00 Temperature 36.7 C Pulse Rate 36 L 40 L Respiratory Rate 16 15 Blood Pressure 172/71 H 179/71 H Pulse Oximetry 96 96 96 Oxygen Delivery Nasal Cannula Oxygen Flow Rate 2 02/19/25 20:00 02/19/25 22:00 02/19/25 22:00 Temperature Pulse Rate 42 L 36 L 36 L Respiratory Rate 17 Blood Pressure 161/53 H Pulse Oximetry 96 Oxygen Delivery Oxygen Flow Rate 02/20/25 00:00 02/20/25 00:00 02/20/25 00:00 Temperature 36.8 C Pulse Rate 40 L 38 L Respiratory Rate 17 Blood Pressure 186/68 H Pulse Oximetry 97 97 Oxygen Delivery Nasal Cannula Oxygen Flow Rate 2 02/20/25 02:00 02/20/25 02:00 02/20/25 04:00 Temperature Pulse Rate 33 L 33 L Respiratory Rate 15 Blood Pressure 172/57 H Pulse Oximetry 95 95 Oxygen Delivery Nasal Cannula Oxygen Flow Rate 2 02/20/25 04:00 02/20/25 04:00 02/20/25 06:00 Temperature 36.7 C Pulse Rate 31 L 31 L 33 L Respiratory Rate 14 Blood Pressure 173/47 H Pulse Oximetry 95 Oxygen Delivery Oxygen Flow Rate 02/20/25 06:00 02/20/25 07:40 Temperature 36.8 C Pulse Rate 33 L 37 L Respiratory Rate 14 20 Blood Pressure 183/60 H 195/47 H Pulse Oximetry 95 99 Oxygen Delivery Oxygen Flow Rate Intake/Output Intake/Output: Intake & Output 02/17/25 02/18/25 02/19/25 02/20/25 23:59 23:59 23:59 23:59 Intake Total 50 390 Output Total 900 Balance 50 -510 Meds/Results Medications: Active Medications Generic Name Dose Route Start Last Admin Trade Name Freq PRN Reason Stop Dose Admin Acetaminophen 650 mg 02/19/25 17:18 Acetaminophen 325 Mg Tablet PO Q6H PRN Mild Pain (1-3) or Fever Albuterol/Ipratropium 3 ml 02/20/25 00:27 Ipratropium 0.5 Mg/Albuterol Sulfate 2.5 Mg Ampul.Neb 3 Ml INHALATION Q6HRT PRN Wheezing Amlodipine Besylate 10 mg 02/20/25 09:00 02/20/25 08:38 Amlodipine Besylate 10 Mg Tablet PO 10 mg DAILY KELIN Administration Artificial Tears 2 drop 02/20/25 09:00 02/20/25 08:27 Artificial Tears Ophth Soln 15 Ml Bottle EACH EYE 2 drop Q12HR KELIN Administration Atorvastatin Calcium 10 mg 02/20/25 21:00 Atorvastatin 10 Mg Tablet PO HS KELIN Bisacodyl 10 mg 02/20/25 00:05 Bisacodyl 5 Mg Tablet Ec PO HS PRN Constipation Buspirone HCl 10 mg 02/20/25 09:00 02/20/25 08:26 Buspirone Hcl 10 Mg Tablet PO 10 mg Q12HR KELIN Administration Cefdinir 300 mg 02/20/25 09:00 02/20/25 08:25 Cefdinir 300 Mg Capsule PO 02/26/25 21:01 300 mg Q12HR KELIN Administration Clonazepam 0.5 mg 02/20/25 09:00 02/20/25 08:26 Clonazepam (*Crx) 0.5 Mg Tablet PO 0.5 mg Q12HR KELIN Administration Clonidine HCl 1 patch 02/26/25 09:00 Clonidine 0.1 Mg/24 Hr Patch TRANSDERM WEEKLY KELIN Famciclovir 250 mg 02/20/25 09:00 02/20/25 08:26 Famciclovir 250 Mg Tablet PO 250 mg Q12HR KELIN Administration Famotidine 10 mg 02/20/25 09:00 02/20/25 08:25 Famotidine 10 Mg Tablet PO 10 mg DAILY KELIN Administration Fluticasone Propionate 1 spray 02/20/25 09:00 02/20/25 08:39 Fluticasone Propionate 0.05% Na Spr 16 Gm Btl (*Bkc) NASAL 1 spray DAILY KELIN Administration Furosemide 40 mg 02/20/25 07:40 02/20/25 08:27 Furosemide Inj 40 Mg/4 Ml Vial IV PUSH Not Given BID KELIN Hydralazine HCl 50 mg 02/20/25 06:00 02/20/25 05:25 Hydralazine Hcl 50 Mg Tablet PO 50 mg Q8HR KELIN Administration Hydralazine HCl 20 mg 02/20/25 07:43 Hydralazine Hcl 20 Mg/Ml Vial IV PUSH Q4H PRN SBP more than 160 Irbesartan 300 mg 02/20/25 09:00 02/20/25 08:27 Irbesartan 150 Mg Tablet PO 300 mg QAM KELIN Administration Lactulose 30 gm 02/20/25 09:00 02/20/25 08:23 Lactulose 20 Gm/30 Ml Udc PO Not Given Q12HR KELIN Magnesium Citrate 300 ml 02/20/25 00:27 Magnesium Citrate 300 Ml Btl PO DAILY PRN constipation Magnesium Hydroxide 30 ml 02/20/25 00:27 Magnesium Hydroxide Susp 30 Ml Udc PO DAILY PRN constipation Memantine 5 mg 02/20/25 09:00 02/20/25 08:26 Memantine 5 Mg Tablet PO 5 mg Q12HR KELIN Administration Ondansetron HCl 4 mg 02/20/25 06:00 02/20/25 05:25 Ondansetron Hcl Odt 4 Mg Tablet PO 4 mg Q8HR KELIN Administration Oxycodone/Acetaminophen 1 tablet 02/20/25 00:05 02/20/25 08:25 Oxycodone/Acetaminophen (*Crx) 5-325 Mg Tablet PO 1 tablet Q8H PRN Administration Pain Rated 7-10 Polyethylene Glycol 17 gm 02/20/25 09:00 02/20/25 08:24 Polyethylene Glycol 3350 17 Gm Powd.Pack PO Not Given DAILY KELIN Senna/Docusate Sodium 2 tab 02/20/25 09:00 02/20/25 08:26 Senna/Docusate Sodium Tablet PO 2 tab Q12HR KELIN Administration Sodium Chloride 1 gm 02/20/25 09:00 02/20/25 08:25 Sodium Chloride 1 Gm Tablet PO 1 gm BID KELIN Administration Spironolactone 25 mg 02/20/25 09:00 02/20/25 08:38 Spironolactone 25 Mg Tablet PO 25 mg DAILY KELIN Administration Tizanidine HCl 2 mg 02/20/25 09:00 02/20/25 08:26 Tizanidine Hcl 2 Mg Tablet PO 2 mg Q12HR KELIN Administration Venlafaxine HCl 37.5 mg 02/20/25 09:00 02/20/25 08:26 Venlafaxine Hcl Xr 37.5 Mg Cap PO 37.5 mg DAILY KELIN Administration Radiology Results: ITS Impressions Chest X-Ray 02/19/25 13:57 IMPRESSION: Significant peribronchial thickening with mild pulmonary vascular congestion and a left-sided pleural effusion. Labs Labs: Laboratory Results - last 24 hr 02/19/25 02/19/25 02/19/25 13:12 13:12 15:59 WBC 7.3 RBC 2.99 L Hgb 8.3 L Hct 25.9 L MCV 86.6 MCH 27.8 MCHC 32.0 RDW 16.4 H Plt Count 188 MPV 11.3 H Immature Gran % (Auto) 0.7 H Neut % (Auto) 62.6 Lymph % (Auto) 19.4 [place] % (Auto) 12.5 H Eos % (Auto) 4.4 Baso % (Auto) 0.4 Lymph # (Auto) 1.41 [place] # (Auto) 0.9 H Eos # (Auto) 0.3 Baso # (Auto) 0.0 Abs Immat Gran (auto) 0.05 H Absolute Neuts (auto) 4.6 Absolute Nucleated RBC 0.000 Nucleated RBC % 0.0 PT 16.7 H INR 1.3 APTT 39.2 H Sodium 124 L Potassium 4.6 Chloride 91 L Carbon Dioxide 26 Anion Gap 7 BUN 14 D Creatinine 0.62 L Estim Creat Clear Calc 77 Estimated GFR > 60 Glucose 109 POC Capillary Glucose Calcium 8.2 L Magnesium 1.6 Cancelled Total Bilirubin 0.2 AST 65 H ALT 66 H Alkaline Phosphatase 102 Troponin I 0.016 0.014 NT-Pro-B Natriuret Pep Total Protein 5.8 L Albumin 3.1 L Lipase < 10 L TSH (Reflex) 2.440 Nasal MRSA (PCR) 02/19/25 02/19/25 02/19/25 17:02 17:50 20:36 WBC RBC Hgb Hct MCV MCH MCHC RDW Plt Count MPV Immature Gran % (Auto) Neut % (Auto) Lymph % (Auto) [place] % (Auto) Eos % (Auto) Baso % (Auto) Lymph # (Auto) [place] # (Auto) Eos # (Auto) Baso # (Auto) Abs Immat Gran (auto) Absolute Neuts (auto) Absolute Nucleated RBC Nucleated RBC % PT INR APTT Sodium 124 L Potassium 4.7 Chloride 88 L Carbon Dioxide 27 Anion Gap 9 BUN 14 Creatinine 0.74 Estim Creat Clear Calc 63 Estimated GFR > 60 Glucose 114 H POC Capillary Glucose 109 H Calcium 8.7 Magnesium 2.1 Total Bilirubin AST ALT Alkaline Phosphatase Troponin I < 0.012 NT-Pro-B Natriuret Pep Total Protein Albumin Lipase TSH (Reflex) Nasal MRSA (PCR) Not detected 02/20/25 02/20/25 05:28 05:32 WBC 11.6 H RBC 3.52 L Hgb 9.9 L Hct 30.6 L MCV 86.9 MCH 28.1 MCHC 32.4 RDW 16.4 H Plt Count 248 MPV 10.6 H Immature Gran % (Auto) 0.5 Neut % (Auto) 60.1 Lymph % (Auto) 21.9 [place] % (Auto) 12.3 H Eos % (Auto) 4.7 H Baso % (Auto) 0.5 Lymph # (Auto) 2.54 [place] # (Auto) 1.4 H Eos # (Auto) 0.5 H Baso # (Auto) 0.1 Abs Immat Gran (auto) 0.06 H Absolute Neuts (auto) 7.0 H Absolute Nucleated RBC 0.000 Nucleated RBC % 0.0 PT INR APTT Sodium 120 L Potassium 4.8 Chloride 87 L Carbon Dioxide 25 Anion Gap 8 BUN 14 Creatinine 0.69 L Estim Creat Clear Calc 68 Estimated GFR > 60 Glucose 91 POC Capillary Glucose Calcium 8.6 Magnesium 2.1 Total Bilirubin 0.4 AST 115 H ALT 127 H Alkaline Phosphatase 123 Troponin I NT-Pro-B Natriuret Pep 2980 H Total Protein 6.8 Albumin 3.8 Lipase TSH (Reflex) Nasal MRSA (PCR)
--- NOTE | 2025-02-20 09:19 | P.CONIN_ITS ---
Assessment and Plan Assessment and plan (1) Bradycardia: Code(s): R00.1 - Bradycardia, unspecified Status: Acute Assessment and Plan: Patient presented with complete heart block and was on beta-geoff. Now in sinus bradycardia. Blood pressure is adequate Most recent echo reviewed Patient is being followed by Cardiology and if does not improve may need permanent pacemaker which is tentatively planned for 02/21 Continue telemetry and hemodynamic monitoring (2) Hypertension: Code(s): I10 - Essential (primary) hypertension Status: Acute Assessment and Plan: Blood pressure elevated. Resume Norvasc, Avapro and p.o. hydralazine Patient also on clonidine patch IV p.r.n. hydralazine IV Lasix Monitor and adjust accordingly (3) Complete heart block: Code(s): I44.2 - Atrioventricular block, complete Status: Acute Assessment and Plan: See above (4) Atrial fibrillation with RVR: Code(s): I48.91 - Unspecified atrial fibrillation Status: Acute Assessment and Plan: History of AFib with RVR. Currently in sinus bradycardia Anticoagulation hold (5) Chronic anticoagulation: Code(s): Z79.01 - retirement (current) use of anticoagulants Status: Acute Assessment and Plan: Patient is on Xarelto which is on hold for possible permanent pacemaker placement (6) Hyponatremia: Code(s): E87.1 - Hypo-osmolality and hyponatremia Status: Acute Assessment and Plan: Continue sodium chloride p.o., fluid restriction IV Lasix Monitor BMP Consult nephrology (7) Congestive heart failure: Code(s): I50.9 - Heart failure, unspecified Status: Acute Assessment and Plan: Most recent echo 07/2024 Summary 1. Technically difficult study with limited views. 2. Left ventricular chamber dimension is normal. 3. Left ventricular systolic function is normal, estimated at 60-65%. 4. There is mildly increased left ventricular wall thickness. 5. The left ventricular diastolic function is grade I diastolic dysfunction. 6. Right ventricular systolic function is normal. 7. Left atrial chamber dimension is mildly enlarged. 8. There is moderate aortic valve regurgitation. 9. There is mild mitral valve regurgitation. 10. There is mild tricuspid valve regurgitation. IV Lasix b.i.d. ordered (8) UTI (urinary tract infection): Qualifiers: Hematuria presence: without hematuria Urinary tract infection type: a cute cystitis Qualified Code(s): N30.00 - Acute cystitis without hematuria Code(s): N39.0 - Urinary tract infection, site not specified Status: Resolved Assessment and Plan: Recently diagnosed UTI. Continue cefdinir. Afebrile. Plan DVT prophylaxis -SCD. Anticoagulation on hold Nutrition -fluid restriction, diet ordered Patient is on Pepcid which will be continued Total Critical Care Time - 30 minutes Due to a high probability of clinically significant, life threatening deterioration, the patient required my highest level of preparedness to intervene emergently and I personally spent this critical care time directly and personally managing the patient. This critical care time included obtaining a history; examining the patient; pulse oximetry; ordering and review of studies; arranging urgent treatment with development of a management plan; evaluation of patient's response to treatment; frequent reassessment; and discussions with other providers. It was exclusive of separately billable procedures and treating other patients and teaching time. Please see Assessment and Plan section and the rest of the note for further information on patient assessment and treatment [employer] Consult Note Consult date: 02/20/25 Reason for consult: Bradycardia HPI: Celestina Ewing is a 74 year old female with PMH of chronic respiratory failure on supplemental O2 (2L NC), CVA, bipolar disorder, anxiety, failure to thrive, GERD, hyperlipidemia, hypertension, chronic hyponatremia, asthma, epilepsy not currently treated with antiepileptic medications and previous left BKA presents here with weakness, and shortness of breath. The patient presents here from [facility] via EMS on 02/19 for further evaluation of weakness, and shortness of breath. She reports that she has been feeling weak and tired for last 3 days. And was feeling short of breath. She denies any fever chest pain cough nausea vomiting abdominal pain diarrhea hematochezia melena or dysuria. She states the nurse practitioner notice that her heart rate was low in the residential and hence she was sent here. All other systems were reviewed and were negative Evaluation in the ER showed patient to be bradycardic and heart rate in 30s. She is on beta-geoff at home. The patient was also recently discharged from [facility] where she had been treated for a urinary tract infection, hyponatremia, hypokalemia and hypocalcemia from 02/09-02/13. Has hx of chronic hyponatremia, reports she has been compliant with a fluid restriction and is on p.o. sodium chloride pills. ED workup showed: No leukocytosis, hemoglobin 8.3, INR 1.3, sodium 124 (133 on 02/13), creatinine 0.62 and GFR >60, calcium 8.2/albumin 3.1, initial troponin 0.016, and TSH 2.44. CXR showed significant peribronchial thickening with mild pulmonary vascular congestion and a left-sided pleural effusion. EKG showed complete heart block. Patient was admitted to ICU. Cardiology consulted but as blood pressure was adequate and patient had latex allergy cardiology decided not to place transvenous pacemaker that time. This morning she states she feels better although she still feels short of breath on exertion. She states her weakness is better but not fully resolved. Sinus bradycardia on the monitor and 30s with adequate blood pressure. Review of Systems 2 Review of Systems: All systems reviewed & are unremarkable except as noted in HPI and below (HPI) [facility] Past Medical History Medical History History of atrial fibrillation Failure to thrive CVA (cerebral vascular accident) Chronic anticoagulation Kidney stone Chronic anemia Chronic respiratory failure with hypoxia, on home oxygen therapy Bipolar disorder Gastroesophageal reflux disease Hyperlipidemia Hypertension Obstructive sleep apnea intolerant to CPAP Left tibial fracture Chronic hyponatremia Shingles Anxiety Depression Gastroparesis Diverticulitis Asthma Epilepsy no longer on medication Seasonal allergies Surgical History Surgical History History of left above knee amputation History of right shoulder replacement History of cholecystectomy History of left knee replacement History of hysterectomy History of open reduction and internal fixation (ORIF) procedure Left tibia and right ankle. History of appendectomy History of tonsillectomy Family History Family History Mother Suicide Depression Heart disease Hypertension Heart failure Sibling Suicide Father Diabetes mellitus Emphysema lung Social History Social History Social History: Surrogate medical decision maker: Martina Rodney, daughter. Code status: Full code. Smoking status: Never smoker Second hand tobacco smoke exposure: No Alcohol intake: never Substance use: never Substance use type: does not use Do You Feel Safe in your Home?: Yes Lack of Transportation: No Lack of Food: Never True Current Housing: I Have Housing Concerned About Future Housing: No Difficulty Paying Gas/Electric Bills: No Difficulty Paying for Meds: No Currently Unemployed: No Education: High School Diploma/GED Difficulty w/ Childcare or Family Care: No [place] Occupation/Education: retired Spiritual care concerns: No Agree to blood products: No Meds Home Medications and Allergies Home Medications ?Medication ?Instructions ?Recorded ?Confirmed ?Type fluticasone propionate 50 1 spray intranasal DAILY 09/09/19 02/19/25 History mcg/actuation nasal spray,suspension docusate sodium 100 mg tablet 200 mg PO BID Constipation 05/31/20 02/19/25 History amlodipine 10 mg tablet 10 mg PO DAILY 04/23/24 02/19/25 History bisacodyl 5 mg tablet,delayed 10 mg PO HS PRN Constipation 04/23/24 02/19/25 History release (Dulcolax (bisacodyl)) guaifenesin 1,200 mg tablet, 1,200 mg PO Q12H 04/23/24 02/19/25 History extended release 12 hr (Mucinex) memantine 5 mg tablet 5 mg PO BID 04/23/24 02/19/25 History ondansetron HCl 4 mg tablet 4 mg PO TID 04/23/24 02/19/25 History pregabalin 150 mg capsule (Lyrica) 150 mg PO BID #14 caps 05/04/24 02/19/25 Rx isosorbide mononitrate 30 mg 30 mg PO DAILY 08/06/24 02/19/25 History tablet,extended release 24 hr lidocaine 5 % topical patch 2 patch topical HS 08/06/24 02/19/25 History (Lidoderm) magnesium hydroxide 400 mg/5 mL 30 ml PO DAILY PRN constipation 08/06/24 02/19/25 History oral suspension (Gentle Laxative (magnesium hydroxide)) rivaroxaban 20 mg tablet (Xarelto) 20 mg PO DAILY@1700 #60 tabs 10/07/24 02/19/25 Rx irbesartan 150 mg tablet 300 mg (2 x 150 mg) PO QAM #30 tabs 10/12/24 02/19/25 Rx oxycodone-acetaminophen 5 mg-325 1 tablet PO Q8H PRN Pain Rated 10/12/24 02/19/25 Rx mg tablet 7-10 #10 tabs atorvastatin 10 mg tablet (Lipitor) 10 mg PO HS 01/18/25 02/19/25 History buspirone 10 mg tablet 10 mg PO Q12H 01/18/25 02/19/25 History clonazepam 0.5 mg tablet 0.5 mg PO Q12H 01/18/25 02/19/25 History famciclovir 250 mg tablet 250 mg PO Q12H 01/18/25 02/19/25 History lactulose 10 gram/15 mL oral 30 g PO BID 01/18/25 02/19/25 History solution (Enulose) magnesium citrate 300 ml PO DAILY PRN constipation 01/18/25 02/19/25 History polyvinyl alcohol-povidone 0.5 2 drp EACH EYE BID PRN dry eye(s) 01/18/25 02/19/25 History %-0.6 % eye drops (Artificial Tears (polyvinyl alcohol/povidone)) primidone 50 mg tablet See Rx Instructions .Route .COMPLEX 01/18/25 02/19/25 History sennosides 8.6 mg-docusate sodium 2 tab-cap PO BID 01/18/25 02/19/25 History 50 mg tablet (Senna Plus) spironolactone 25 mg tablet 25 mg PO DAILY 01/18/25 02/19/25 History venlafaxine 37.5 mg 37.5 mg PO DAILY 01/18/25 02/19/25 History capsule,extended release 24 hr zolpidem 5 mg tablet 5 mg PO HS 01/18/25 02/19/25 History clonidine 0.1 mg/24 hr weekly 1 patch transdermal WEEKLY #4 ea 01/21/25 02/19/25 Rx transdermal patch famotidine 10 mg tablet (Heartburn 10 mg PO DAILY 02/08/25 02/19/25 History Relief (famotidine)) metoprolol succinate 100 mg 300 mg PO QAM 02/08/25 02/19/25 History tablet,extended release 24 hr (Toprol XL) tizanidine 2 mg tablet 2 mg PO Q12H 02/08/25 02/19/25 History cefdinir 300 mg capsule 300 mg PO Q12H #10 caps 02/12/25 02/19/25 Rx hydralazine 50 mg tablet 50 mg PO Q8HR #30 tabs 02/12/25 02/19/25 Rx ipratropium 0.5 mg-albuterol 3 mg 3 ml inhalation Q6HRT PRN Wheezing 02/12/25 02/19/25 Rx (2.5 mg base)/3 mL nebulization #30 vials soln polyethylene glycol 3350 17 17 g PO DAILY 02/19/25 02/19/25 History gram/dose oral powder polyvinyl alcohol 1.4 % eye drops 2 drp EACH EYE BID 02/19/25 02/19/25 History (Artificial Tears (polyvinyl alcohol)) sodium chloride 1,000 mg soluble 1,000 mg PO BID 02/19/25 02/19/25 History tablet Allergies Allergy/AdvReac Type Severity Reaction Status Date / Time Fish Containing Products Allergy Severe Dyspnea / Verified 02/19/25 13:15 SOB Iodinated Contrast Media Allergy Intermediate HIVES, RED Verified 02/19/25 13:15 FACE iodine Allergy Unknown Unknown Verified 02/19/25 13:15 Barbiturates Allergy Unknown Verified 02/19/25 13:15 bupivacaine Allergy Unknown Verified 02/19/25 13:15 diazepam (From Valium) Allergy Unknown Verified 02/19/25 13:15 latex Allergy Unknown Verified 02/19/25 13:15 menthol Allergy Unknown Verified 02/19/25 13:15 Sulfa (Sulfonamide Allergy Unknown Verified 02/19/25 13:15 Antibiotics) thiopental (From Pentothal) Allergy Unknown Verified 02/19/25 13:15 wool Allergy Unknown Verified 02/19/25 13:15 Vital Signs Vital Signs - 24 hr 02/19/25 12:46 02/19/25 13:10 02/19/25 13:10 Temperature 36.4 C Pulse Rate 36 L 35 L Respiratory Rate 17 Blood Pressure 126/53 L Pulse Oximetry 98 99 Oxygen Delivery Nasal Cannula Nasal Cannula Oxygen Flow Rate 2 2 02/19/25 13:12 02/19/25 14:07 02/19/25 14:19 Temperature Pulse Rate 37 L 36 L Respiratory Rate 13 12 Blood Pressure 113/58 L 115/44 L Pulse Oximetry 98 97 97 Oxygen Delivery Nasal Cannula Oxygen Flow Rate 2 02/19/25 15:03 02/19/25 15:35 02/19/25 15:46 Temperature Pulse Rate 35 L 40 L 39 L Respiratory Rate 13 13 14 Blood Pressure 127/48 L 141/52 H 142/53 H Pulse Oximetry 97 98 99 Oxygen Delivery Oxygen Flow Rate 02/19/25 16:22 02/19/25 16:35 02/19/25 17:00 Temperature 36.4 C L Pulse Rate 38 L 38 L 40 L Respiratory Rate 13 14 14 Blood Pressure 146/63 H 132/71 Pulse Oximetry 97 100 99 Oxygen Delivery Nasal Cannula Oxygen Flow Rate 2 02/19/25 17:00 02/19/25 17:12 02/19/25 18:00 Temperature 36.6 C Pulse Rate 39 L 40 L 39 L Respiratory Rate 14 Blood Pressure 157/61 H Pulse Oximetry 99 Oxygen Delivery Oxygen Flow Rate 02/19/25 18:01 02/19/25 20:00 02/19/25 20:00 Temperature 36.7 C Pulse Rate 36 L 40 L Respiratory Rate 16 15 Blood Pressure 172/71 H 179/71 H Pulse Oximetry 96 96 96 Oxygen Delivery Nasal Cannula Oxygen Flow Rate 2 02/19/25 20:00 02/19/25 22:00 02/19/25 22:00 Temperature Pulse Rate 42 L 36 L 36 L Respiratory Rate 17 Blood Pressure 161/53 H Pulse Oximetry 96 Oxygen Delivery Oxygen Flow Rate 02/20/25 00:00 02/20/25 00:00 02/20/25 00:00 Temperature 36.8 C Pulse Rate 40 L 38 L Respiratory Rate 17 Blood Pressure 186/68 H Pulse Oximetry 97 97 Oxygen Delivery Nasal Cannula Oxygen Flow Rate 2 02/20/25 02:00 02/20/25 02:00 02/20/25 04:00 Temperature Pulse Rate 33 L 33 L Respiratory Rate 15 Blood Pressure 172/57 H Pulse Oximetry 95 95 Oxygen Delivery Nasal Cannula Oxygen Flow Rate 2 02/20/25 04:00 02/20/25 04:00 02/20/25 06:00 Temperature 36.7 C Pulse Rate 31 L 31 L 33 L Respiratory Rate 14 Blood Pressure 173/47 H Pulse Oximetry 95 Oxygen Delivery Oxygen Flow Rate 02/20/25 06:00 02/20/25 07:40 Temperature 36.8 C Pulse Rate 33 L 37 L Respiratory Rate 14 20 Blood Pressure 183/60 H 195/47 H Pulse Oximetry 95 99 Oxygen Delivery Oxygen Flow Rate Exam 2 Narrative: General: Pt is alert awake and in NAD Lungs/Chest: Trachea central Clear BS B/L, few crackles at bases, breath sounds are decreased at bases Cardiac: RRR. Normal S1 S2. No murmurs Circulation: Pedal pulses are intact and symmetrical. Abdomen: Normal bowel sounds.. Soft. NT. ND. Extremities: Left BKA, right side lower extremity edema : Delarosa in place Neurologic: Follows commands. Moves all 4 extremities PERRL AO x3 Skin: No Rash Results Labs 02/20/25 05:32 02/20/25 05:32 Labs: Impressions Chest X-Ray 02/19/25 13:57 IMPRESSION: Significant peribronchial thickening with mild pulmonary vascular congestion and a left-sided pleural effusion. Short CBC 02/19/25 02/20/25 Range/Units 13:12 05:32 WBC 7.3 11.6 H (4.5-10.0) K/mm3 Hgb 8.3 L 9.9 L (12.0-15.0) g/dL Hct 25.9 L 30.6 L (37.0-47.0) % Plt Count 188 248 (150-375) k/mm3 BMP 02/19/25 02/19/25 02/20/25 13:12 20:36 05:32 Sodium 124 L 124 L 120 L Potassium 4.6 4.7 4.8 Chloride 91 L 88 L 87 L Carbon Dioxide 26 27 25 BUN 14 D 14 14 Creatinine 0.62 L 0.74 0.69 L Glucose 109 114 H 91 Calcium 8.2 L 8.7 8.6 Cardiac Enzymes 02/19/25 02/19/25 02/19/25 Range/Units 13:12 15:59 20:36 Troponin I 0.016 0.014 < 0.012 (0.000-0.034) ng/mL Liver Function 02/19/25 02/20/25 Range/Units 13:12 05:32 Total Bilirubin 0.2 0.4 (0.2-1.3) mg/dL AST 65 H 115 H (14-36) U/L ALT 66 H 127 H (6-35) U/L Alkaline Phosphatase 102 123 (38-126) U/L Albumin 3.1 L 3.8 (3.5-5.1) g/dL ECG Interpretation: EKG done this morning shows sinus bradycardia Quality VTE Prophylaxis VTE prophylaxis: mechanical ordered Hospitalist MIPS Advance Care Plan I have confirmed that the patient's Advanced Care Plan is present, code status is documented, or surrogate decision maker is listed in patient medical record.: Yes Medication Reconciliation I have utilized all available resources to obtain, update and review the patients current medications (includes all prescriptions, OTC, herbals, cannabis, and nutritional supplements).: Yes
--- NOTE | 2025-02-20 10:00 | P.CONNP_ITS ---
Assessment and Plan Assessment and plan (1) Hyponatremia: Code(s): E87.1 - Hypo-osmolality and hyponatremia Status: Acute Assessment and Plan: * acute on chronic issue * baseline sodium runs high 120s to low 130s * multifactorial issue: * medications (buspirone, clonzepam, venlafaxine...etc) * history of CVAs * mild volume overload * excess free water intake * reactive airway disease (?) * bradycardia (?) * agree with fluid restriction and salt tablets * IV lasix should help as well * follow trend of repeat sodium levels (2) Bradycardia: Code(s): R00.1 - Bradycardia, unspecified Status: Acute Assessment and Plan: * as noted currently * complete heart block noted in ER * was on metoprolol * remains hemodynamically stable * Cardiology following * possible need for permanent pacemaker * follow telemetry (3) Congestive heart failure: Code(s): I50.9 - Heart failure, unspecified Status: Acute Assessment and Plan: * Echo (July 2024) noted: * left ventricular systolic function is normal, estimated at 60-65% * left ventricular diastolic function is grade I diastolic dysfunction * moderate aortic valve regurgitation * mild mitral valve regurgitation * mild tricuspid valve regurgitation. * given CXR findings, on IV diuretics * follow volume status (4) Hypertension: Code(s): I10 - Essential (primary) hypertension Status: Acute Assessment and Plan: * elevated at this time * resumed on oral meds of amlodipine/irbesartan/hydralazine as well as clonidine patch * PRN IV hydralazine * follow trend of hemodynamics (5) UTI (urinary tract infection): Qualifiers: Hematuria presence: without hematuria Urinary tract infection type: a cute cystitis Qualified Code(s): N30.00 - Acute cystitis without hematuria Code(s): N39.0 - Urinary tract infection, site not specified Status: Resolved Assessment and Plan: * as noted on previous hospitalization * on antibiotics (6) Anemia: Qualifiers: Anemia type: unspecified type Qualified Code(s): D64.9 - Anemia, unspecified Code(s): D64.9 - Anemia, unspecified Status: Chronic Assessment and Plan: * probably due to acute illness and recent hospitalizations * follow trend of H/H I will continue to follow the patient with you while he remains hospitalized and make further recommendations as deemed necessary. Thank you for allowing me to participate in the care of this patient. L History of Present Illness Reason for Consult Consult date: 02/20/25 Reason for consult: hyponatremia (acute on chronic) Chief Complaint Chief complaint: Complete Heart Block History of Present Illness Narrative: A great majority of the history I have obtained is from you review of the electronic medical record as well as discussion with the physicians/nurses involved in the patient's care as is difficult for the patient give a full and complete history. The patient is a 74-year-old female with a past medical history as outlined below who presented to [facility] Emergency Room with complaints of weakness in association with shortness of breath. She states that she has been feeling weak and fatigued for last 3 days and this appears to be around the same time when she started feeling short of breath. She gave no other symptoms with regard to fever, chest pain, nausea, vomiting, cough, abdominal pain, or GI symptoms. Apparently, the nurse practitioner at her nursing facility noted that she was somewhat bradycardic and thought this may be a potential reason for her symptoms. Hence, she was sent from her nursing facility to the ER for further assessment. Workup and evaluation emergency room did confirm her bradycardia with a heart rate in the 30s. She was otherwise afebrile and hemodynamically stable. It should be noted the patient was just recently discharged from [facility] about a week ago after being treated for a urinary tract infection and an exacerbation of her chronic hyponatremia. Her sodium level at that time improved with fluid restriction and the addition of salt tablets prior discharge. Further testing in the emergency room noted a normal white blood cell count, relative anemia with a hemoglobin of 8.3, worsening of her chronic hyponatremia with a sodium of 124, normal renal function, and a chest x-ray with peribronchial thickening with mild pulmonary vascular congestion and a left- sided pleural effusion. Her EKG demonstrated complete heart block. Given her bradycardia and apparent heart block, she was admitted to the intensive care unit for further evaluation and therapy. Since her admission, she has been seen by Cardiology and as she remained hemodynamically stable transvenous pacemaker placement was deferred. However, there was still concern that she may require a permanent pacemaker if she continues to have ongoing bradycardia/complete heart block/arrhythmias. Renal consultation was requested due to her acute on chronic hyponatremia. The patient has had numerous hospitalizations here at [facility] for acute on chronic hyponatremia as noted. Her extensive workup and evaluation during his previous hospitalizations seemed indicate that her hyponatremia was multifactorial and included previous use of hydrochlorothiazide, proton pump inhibitor use (pantoprazole), excess free water intake, previous use of narcotics/pain meds, and her history of CVAs. On her last hospitalization, as mentioned above, her sodium level improved with fluid restriction. Her sodium on admission was 120 millimoles per L and has remained that way by repeat testing today. Given evidence of pulmonary edema on chest x-ray, IV Lasix has been instituted in conjunction with her ongoing fluid restriction and salt tablets. Currently, at the time my evaluation, she appears to be in no acute distress. Review of Systems 2 Review of Systems: As per HPI. [facility] Past Medical History Medical History History of atrial fibrillation Failure to thrive CVA (cerebral vascular accident) Chronic anticoagulation Kidney stone Chronic anemia Chronic respiratory failure with hypoxia, on home oxygen therapy Bipolar disorder Gastroesophageal reflux disease Hyperlipidemia Hypertension Obstructive sleep apnea intolerant to CPAP Left tibial fracture Chronic hyponatremia Shingles Anxiety Depression Gastroparesis Diverticulitis Asthma Epilepsy no longer on medication Seasonal allergies Surgical History Surgical History History of left above knee amputation History of right shoulder replacement History of cholecystectomy History of left knee replacement History of hysterectomy History of open reduction and internal fixation (ORIF) procedure Left tibia and right ankle. History of appendectomy History of tonsillectomy Family History Family History Mother Suicide Depression Heart disease Hypertension Heart failure Sibling Suicide Father Diabetes mellitus Emphysema lung Social History Social History Social History: Surrogate medical decision maker: Martina Rodney, daughter. Code status: Full code. Smoking status: Never smoker Second hand tobacco smoke exposure: No Alcohol intake: never Substance use: never Substance use type: does not use Do You Feel Safe in your Home?: Yes Lack of Transportation: No Lack of Food: Never True Current Housing: I Have Housing Concerned About Future Housing: No Difficulty Paying Gas/Electric Bills: No Difficulty Paying for Meds: No Currently Unemployed: No Education: High School Diploma/GED Difficulty w/ Childcare or Family Care: No Living arrangements: [facility] Occupation/Education: retired Spiritual care concerns: No Agree to blood products: No Meds Home Medications and Allergies Home Medications ?Medication ?Instructions ?Recorded ?Confirmed ?Type fluticasone propionate 50 1 spray intranasal DAILY 09/09/19 02/19/25 History mcg/actuation nasal spray,suspension docusate sodium 100 mg tablet 200 mg PO BID Constipation 05/31/20 02/19/25 History amlodipine 10 mg tablet 10 mg PO DAILY 04/23/24 02/19/25 History bisacodyl 5 mg tablet,delayed 10 mg PO HS PRN Constipation 04/23/24 02/19/25 History release (Dulcolax (bisacodyl)) guaifenesin 1,200 mg tablet, 1,200 mg PO Q12H 04/23/24 02/19/25 History extended release 12 hr (Mucinex) memantine 5 mg tablet 5 mg PO BID 04/23/24 02/19/25 History ondansetron HCl 4 mg tablet 4 mg PO TID 04/23/24 02/19/25 History pregabalin 150 mg capsule (Lyrica) 150 mg PO BID #14 caps 05/04/24 02/19/25 Rx isosorbide mononitrate 30 mg 30 mg PO DAILY 08/06/24 02/19/25 History tablet,extended release 24 hr lidocaine 5 % topical patch 2 patch topical HS 08/06/24 02/19/25 History (Lidoderm) magnesium hydroxide 400 mg/5 mL 30 ml PO DAILY PRN constipation 08/06/24 02/19/25 History oral suspension (Gentle Laxative (magnesium hydroxide)) rivaroxaban 20 mg tablet (Xarelto) 20 mg PO DAILY@1700 #60 tabs 10/07/24 02/19/25 Rx irbesartan 150 mg tablet 300 mg (2 x 150 mg) PO QAM #30 tabs 10/12/24 02/19/25 Rx oxycodone-acetaminophen 5 mg-325 1 tablet PO Q8H PRN Pain Rated 10/12/24 02/19/25 Rx mg tablet 7-10 #10 tabs atorvastatin 10 mg tablet (Lipitor) 10 mg PO HS 01/18/25 02/19/25 History buspirone 10 mg tablet 10 mg PO Q12H 01/18/25 02/19/25 History clonazepam 0.5 mg tablet 0.5 mg PO Q12H 01/18/25 02/19/25 History famciclovir 250 mg tablet 250 mg PO Q12H 01/18/25 02/19/25 History lactulose 10 gram/15 mL oral 30 g PO BID 01/18/25 02/19/25 History solution (Enulose) magnesium citrate 300 ml PO DAILY PRN constipation 01/18/25 02/19/25 History polyvinyl alcohol-povidone 0.5 2 drp EACH EYE BID PRN dry eye(s) 01/18/25 02/19/25 History %-0.6 % eye drops (Artificial Tears (polyvinyl alcohol/povidone)) primidone 50 mg tablet See Rx Instructions .Route .COMPLEX 01/18/25 02/19/25 History sennosides 8.6 mg-docusate sodium 2 tab-cap PO BID 01/18/25 02/19/25 History 50 mg tablet (Senna Plus) spironolactone 25 mg tablet 25 mg PO DAILY 01/18/25 02/19/25 History venlafaxine 37.5 mg 37.5 mg PO DAILY 01/18/25 02/19/25 History capsule,extended release 24 hr zolpidem 5 mg tablet 5 mg PO HS 01/18/25 02/19/25 History clonidine 0.1 mg/24 hr weekly 1 patch transdermal WEEKLY #4 ea 01/21/25 02/19/25 Rx transdermal patch famotidine 10 mg tablet (Heartburn 10 mg PO DAILY 02/08/25 02/19/25 History Relief (famotidine)) metoprolol succinate 100 mg 300 mg PO QAM 02/08/25 02/19/25 History tablet,extended release 24 hr (Toprol XL) tizanidine 2 mg tablet 2 mg PO Q12H 02/08/25 02/19/25 History cefdinir 300 mg capsule 300 mg PO Q12H #10 caps 02/12/25 02/19/25 Rx hydralazine 50 mg tablet 50 mg PO Q8HR #30 tabs 02/12/25 02/19/25 Rx ipratropium 0.5 mg-albuterol 3 mg 3 ml inhalation Q6HRT PRN Wheezing 02/12/25 02/19/25 Rx (2.5 mg base)/3 mL nebulization #30 vials soln polyethylene glycol 3350 17 17 g PO DAILY 02/19/25 02/19/25 History gram/dose oral powder polyvinyl alcohol 1.4 % eye drops 2 drp EACH EYE BID 02/19/25 02/19/25 History (Artificial Tears (polyvinyl alcohol)) sodium chloride 1,000 mg soluble 1,000 mg PO BID 02/19/25 02/19/25 History tablet Allergies Allergy/AdvReac Type Severity Reaction Status Date / Time Fish Containing Products Allergy Severe Dyspnea / Verified 02/19/25 13:15 SOB Iodinated Contrast Media Allergy Intermediate HIVES, RED Verified 02/19/25 13:15 FACE iodine Allergy Unknown Unknown Verified 02/19/25 13:15 Barbiturates Allergy Unknown Verified 02/19/25 13:15 bupivacaine Allergy Unknown Verified 02/19/25 13:15 diazepam (From Valium) Allergy Unknown Verified 02/19/25 13:15 latex Allergy Unknown Verified 02/19/25 13:15 menthol Allergy Unknown Verified 02/19/25 13:15 Sulfa (Sulfonamide Allergy Unknown Verified 02/19/25 13:15 Antibiotics) thiopental (From Pentothal) Allergy Unknown Verified 02/19/25 13:15 wool Allergy Unknown Verified 02/19/25 13:15 Vital Signs Vital Signs Temp Pulse Resp BP Pulse Ox O2 Del Method O2 Flow Rate 02/20/25 10:00 34 L 16 108/38 L 95 02/20/25 08:00 35 L 02/20/25 08:00 37 L 20 99 Nasal Cannula 2 02/20/25 07:40 98.2 F 37 L 20 195/47 H 99 02/20/25 06:00 33 L 14 183/60 H 95 02/20/25 06:00 33 L 02/20/25 04:00 31 L 02/20/25 04:00 98.0 F 31 L 14 173/47 H 95 02/20/25 04:00 95 Nasal Cannula 2 02/20/25 02:00 33 L 15 172/57 H 95 02/20/25 02:00 33 L 02/20/25 00:00 38 L 02/20/25 00:00 98.2 F 40 L 17 186/68 H 97 02/20/25 00:00 97 Nasal Cannula 2 02/19/25 22:00 36 L 02/19/25 22:00 36 L 17 161/53 H 96 02/19/25 20:00 42 L 02/19/25 20:00 98.1 F 40 L 15 179/71 H 96 02/19/25 20:00 96 Nasal Cannula 2 Exam 2 Narrative: GENERAL APPEARANCE: elderly WD/WN female in no acute distress HEENT: normocephalic, atraumatic, normal conjunctiva and sclera, nares patient NECK: no lymphadenopathy, thyromegaly, or JVD MOUTH: normal lips, teeth, and gums CARDIOVASCULAR: RRR, normal S1 and S2, no rub detected RESPIRATORY: few bibasilar crackles ABDOMEN: soft, nontender, nondistended, positive bowel sounds present EXTREMITIES: no evidence of cyanosis, clubbing, 1+ edema; s/p left BKA NEUROLOGICAL: awake and alert; no focal deficits noted Results Lab Results 02/21/25 03:29 02/21/25 03:29 Lab results: Most recent lab results Calcium 8.2 mg/dL (8.4-10.2) L 02/20/25 14:32 Magnesium 2.1 mg/dL (1.6-2.3) 02/20/25 05:32
[2025-02-20 10:54] LABS: Add Urine Microscopic? YES; Appearance Urine Clear (Clear); Glucose Urine UA Negative (Negative); Leukocyte Esterase Ur Negative LEU/UL (Negative); Nitrate Urine Negative (Negative); Specific Grav Ur 1.007 (1.001-1.035)
[2025-02-20 14:53] LABS: Anion Gap 5 mmol/L (4-12); Blood Urea Nitrogen 16 mg/dL (7-17); Calcium 8.2 mg/dL (8.4-10.2); Carbon Dioxide 28 mmol/L (22-30); Chloride 87 mmol/L (98-107); Estimated CRCL calculation 59 ml/min; Estimated Glomerular Filt Rate > 60; Glucose 148 mg/dL (65-110); Potassium 4.6 mmol/L (3.4-5.0); Sodium 120 mmol/L (137-145)
[2025-02-20] MEDS: ATORVASTATIN 10 MG TABLET PO (22:21)
[2025-02-21] VITALS (20 sets, daily range): BP systolic 89–182; BP diastolic 29–100; PULSE 31–98; RESP 11–17; TEMP 36.5–36.9; O2SAT 93–99
--- NOTE | 2025-02-21 00:34 | PC.NURSE ---
Call placed to Dr. Ovalles r/t patient's low blood pressure. Clonidine patch removed per .
[2025-02-21 03:37] LABS: Hematocrit 27.8 % (37.0-47.0); Hemoglobin 9.0 g/dL (12.0-15.0); Mean Corpuscular HGB Conc 32.4 g/dl (32-36); Mean Corpuscular Hemoglobin 28.0 pg (26-34); Mean Corpuscular Volume 86.6 fl (80-100); Platelet Count Result 208 k/mm3 (150-375); Red Blood Count 3.21 M/mm3 (4.2-5.4); White Blood Count 9.4 K/mm3 (4.5-10.0)
[2025-02-21 04:04] LABS: Alanine Aminotransferase 129 U/L (6-35); Albumin Level 3.1 g/dL (3.5-5.1); Alkaline Phosphatase 106 U/L (38-126); Anion Gap 6 mmol/L (4-12); Aspartate Amino Transferase 85 U/L (14-36); Bilirubin,Total 0.2 mg/dL (0.2-1.3); Blood Urea Nitrogen 18 mg/dL (7-17); Calcium 8.1 mg/dL (8.4-10.2); Carbon Dioxide 29 mmol/L (22-30); Chloride 89 mmol/L (98-107); Estimated CRCL calculation 49 ml/min; Estimated Glomerular Filt Rate 55; Glucose 103 mg/dL (65-110); Magnesium 1.8 mg/dL (1.6-2.3); Potassium 4.2 mmol/L (3.4-5.0); Sodium 124 mmol/L (137-145); Total Protein 5.8 g/dL (6.3-8.2)
[2025-02-21] MEDS: ONDANSETRON HCL ODT 4 MG TABLET PO ×2 (05:27→22:26)
--- NOTE | 2025-02-21 06:59 | P.PNCA_ITS ---
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 She did not receive metoprolol for 2 days and she still remains bradycardic with heart rates in the 30s. She has symptoms of fatigue/tiredness. Permanent pacemaker placement today for symptomatic (tiredness, fatigue) complete heart block/2:1 second-degree heart block/bradycardia -Avoid AV caitlin blocking agents -Monitor on telemetry -Check and replace electrolytes to keep potassium greater than 4 and magnesium greater than 2 -Continue home antihypertensive meds amlodipine, irbesartan, hydralazine, spironolactone. Resume Imdur when able -Continue atorvastatin -Holding Xarelto in case she needs permanent pacemaker placement tomorrow. Her last dose was on Wednesday -Management of other medical problems per ICU team -Plan was discussed with patient and her daughter was at bedside that and she is agreeable Subjective Date/time seen: 02/21/25 06:59 Interval history: Reason for encounter: Complete heart block, second-degree 2 is to 1 heart block Interval history: No chest pain, shortness breath, dizziness, palpitations. She reports being tired and fatigued. Telemetry shows heart rate in the 30s with 2 is to 1 block. Review of Systems Cardiovascular: Comments: As per HPI Respiratory: Comments: As per HPI Exam Narrative: General: Alert oriented x3, no acute distress Neck: Supple, JVD + Chest: Bibasilar rales, no rhonchi Cardiac: S1, S2 +, regular rate, regular rhythm, no murmurs or rubs Extremities: Bilateral lower extremity edema 2+, no skin rash Neurologic: Alert and oriented x3, no focal neurological deficits Objective Data Vital Signs Vital Signs: Vital Signs - 24 hr 02/20/25 07:40 02/20/25 08:00 02/20/25 08:00 Temperature 36.8 C Pulse Rate 37 L 37 L 35 L Respiratory Rate 20 20 Blood Pressure 195/47 H Pulse Oximetry 99 99 Oxygen Delivery Nasal Cannula Oxygen Flow Rate 2 02/20/25 10:00 02/20/25 10:00 02/20/25 11:55 Temperature 36.2 C L Pulse Rate 34 L 37 L 33 L Respiratory Rate 16 12 Blood Pressure 108/38 L 114/46 L Pulse Oximetry 95 97 Oxygen Delivery Oxygen Flow Rate 02/20/25 12:00 02/20/25 12:00 02/20/25 14:00 Temperature Pulse Rate 33 L 34 L 36 L Respiratory Rate 12 Blood Pressure Pulse Oximetry 97 Oxygen Delivery Nasal Cannula Oxygen Flow Rate 2 02/20/25 14:00 02/20/25 16:00 02/20/25 16:00 Temperature Pulse Rate 36 L 36 L 39 L Respiratory Rate 15 15 Blood Pressure 171/49 H Pulse Oximetry 99 99 Oxygen Delivery Nasal Cannula Oxygen Flow Rate 2 02/20/25 16:00 02/20/25 18:00 02/20/25 18:02 Temperature 36.4 C L Pulse Rate 42 L 43 L 43 L Respiratory Rate 14 15 Blood Pressure 140/78 206/58 H Pulse Oximetry 96 96 Oxygen Delivery Oxygen Flow Rate 02/20/25 20:00 02/20/25 20:00 02/20/25 20:00 Temperature 36.6 C Pulse Rate 42 L 39 L Respiratory Rate 16 Blood Pressure 158/70 H Pulse Oximetry 97 97 Oxygen Delivery Nasal Cannula Oxygen Flow Rate 2 02/20/25 22:00 02/20/25 22:00 02/21/25 00:00 Temperature Pulse Rate 38 L 36 L Respiratory Rate 14 Blood Pressure 125/37 L Pulse Oximetry 97 98 Oxygen Delivery Nasal Cannula Oxygen Flow Rate 2 02/21/25 00:00 02/21/25 00:00 02/21/25 02:00 Temperature 36.8 C Pulse Rate 97 36 L 33 L Respiratory Rate 14 Blood Pressure 89/29 L Pulse Oximetry 99 Oxygen Delivery Oxygen Flow Rate 02/21/25 02:00 02/21/25 04:00 02/21/25 04:00 Temperature 36.6 C Pulse Rate 33 L 36 L Respiratory Rate 12 15 Blood Pressure 121/41 L 120/45 L Pulse Oximetry 98 99 99 Oxygen Delivery Nasal Cannula Oxygen Flow Rate 2 02/21/25 04:00 02/21/25 06:00 02/21/25 06:00 Temperature Pulse Rate 31 L 37 L 37 L Respiratory Rate 13 Blood Pressure 165/44 H Pulse Oximetry 97 Oxygen Delivery Oxygen Flow Rate Intake/Output Intake/Output: Intake & Output 02/18/25 02/19/25 02/20/25 02/21/25 23:59 23:59 23:59 23:59 Intake Total 50 1020 250 Output Total 1900 200 Balance 50 -880 50 Meds/Results Medications: Active Medications Generic Name Dose Route Start Last Admin Trade Name Freq PRN Reason Stop Dose Admin Acetaminophen 650 mg 02/19/25 17:18 Acetaminophen 325 Mg Tablet PO Q6H PRN Mild Pain (1-3) or Fever Albuterol/Ipratropium 3 ml 02/20/25 00:27 Ipratropium 0.5 Mg/Albuterol Sulfate 2.5 Mg Ampul.Neb 3 Ml INHALATION Q6HRT PRN Wheezing Amlodipine Besylate 10 mg 02/20/25 09:00 02/20/25 08:38 Amlodipine Besylate 10 Mg Tablet PO 10 mg DAILY KELIN Administration Artificial Tears 2 drop 02/20/25 09:00 02/20/25 22:20 Artificial Tears Ophth Soln 15 Ml Bottle EACH EYE 2 drop Q12HR KELIN Administration Atorvastatin Calcium 10 mg 02/20/25 21:00 02/20/25 22:21 Atorvastatin 10 Mg Tablet PO 10 mg HS KELIN Administration Bisacodyl 10 mg 02/20/25 00:05 Bisacodyl 5 Mg Tablet Ec PO HS PRN Constipation Buspirone HCl 10 mg 02/20/25 09:00 02/20/25 22:19 Buspirone Hcl 10 Mg Tablet PO 10 mg Q12HR KELIN Administration Cefdinir 300 mg 02/20/25 09:00 02/20/25 22:19 Cefdinir 300 Mg Capsule PO 02/26/25 21:01 300 mg Q12HR KELIN Administration Clonazepam 0.5 mg 02/20/25 09:00 02/20/25 22:19 Clonazepam (*Crx) 0.5 Mg Tablet PO 0.5 mg Q12HR KELIN Administration Clonidine HCl 1 patch 02/26/25 09:00 Clonidine 0.1 Mg/24 Hr Patch TRANSDERM WEEKLY KELIN Famciclovir 250 mg 02/20/25 09:00 02/20/25 22:19 Famciclovir 250 Mg Tablet PO 250 mg Q12HR KELIN Administration Famotidine 10 mg 02/20/25 09:00 02/20/25 08:25 Famotidine 10 Mg Tablet PO 10 mg DAILY KELIN Administration Fluticasone Propionate 1 spray 02/20/25 09:00 02/20/25 08:39 Fluticasone Propionate 0.05% Na Spr 16 Gm Btl (*Bkc) NASAL 1 spray DAILY KELIN Administration Furosemide 40 mg 02/20/25 07:40 02/20/25 16:55 Furosemide Inj 40 Mg/4 Ml Vial IV PUSH 40 mg BID KELIN Administration Hydralazine HCl 50 mg 02/20/25 06:00 02/21/25 05:28 Hydralazine Hcl 50 Mg Tablet PO Not Given Q8HR [facility] Hydralazine HCl 20 mg 02/20/25 07:43 02/20/25 18:46 Hydralazine Hcl 20 Mg/Ml Vial IV PUSH 20 mg Q4H PRN Administration SBP more than 160 Irbesartan 300 mg 02/20/25 09:00 02/20/25 08:27 Irbesartan 150 Mg Tablet PO 300 mg QAM KELIN Administration Lactulose 30 gm 02/20/25 11:15 Lactulose 20 Gm/30 Ml Udc PO Q12HR PRN Constipation Magnesium Citrate 300 ml 02/20/25 00:27 Magnesium Citrate 300 Ml Btl PO DAILY PRN constipation Magnesium Hydroxide 30 ml 02/20/25 00:27 Magnesium Hydroxide Susp 30 Ml Udc PO DAILY PRN constipation Memantine 5 mg 02/20/25 09:00 02/20/25 22:19 Memantine 5 Mg Tablet PO 5 mg Q12HR KELIN Administration Ondansetron HCl 4 mg 02/20/25 06:00 02/21/25 05:27 Ondansetron Hcl Odt 4 Mg Tablet PO 4 mg Q8HR KELIN Administration Oxycodone HCl 5 mg 02/20/25 20:30 Oxycodone Hcl (*Crx) 5 Mg Tab Ir PO Q8HR PRN Pain Rated 7-10 Polyethylene Glycol 17 gm 02/20/25 11:15 Polyethylene Glycol 3350 17 Gm Powd.Pack PO DAILY PRN Constipation Senna/Docusate Sodium 2 tab 02/20/25 09:00 02/20/25 22:19 Senna/Docusate Sodium Tablet PO 2 tab Q12HR KELIN Administration Sodium Chloride 1 gm 02/20/25 09:00 02/20/25 16:55 Sodium Chloride 1 Gm Tablet PO 1 gm BID KELIN Administration Spironolactone 25 mg 02/20/25 09:00 02/20/25 08:38 Spironolactone 25 Mg Tablet PO 25 mg DAILY KELIN Administration Tizanidine HCl 2 mg 02/20/25 09:00 02/20/25 22:19 Tizanidine Hcl 2 Mg Tablet PO 2 mg Q12HR KELIN Administration Venlafaxine HCl 37.5 mg 02/20/25 09:00 02/20/25 08:26 Venlafaxine Hcl Xr 37.5 Mg Cap PO 37.5 mg DAILY KELIN Administration Radiology Results: ITS Impressions Chest X-Ray 02/19/25 13:57 IMPRESSION: Significant peribronchial thickening with mild pulmonary vascular congestion and a left-sided pleural effusion. Labs Labs: Laboratory Results - last 24 hr 02/20/25 02/20/25 02/20/25 05:28 10:40 14:32 WBC RBC Hgb Hct MCV MCH MCHC RDW Plt Count MPV Sodium 120 L Potassium 4.6 Chloride 87 L Carbon Dioxide 28 Anion Gap 5 BUN 16 Creatinine 0.81 Estim Creat Clear Calc 59 Estimated GFR > 60 Glucose 148 H Calcium 8.2 L Magnesium Total Bilirubin AST ALT Alkaline Phosphatase NT-Pro-B Natriuret Pep 2980 H Total Protein Albumin Urine Color Yellow Urine Appearance Clear Urine pH 5.5 Ur Specific [place] 1.007 Urine Protein 3+ H Urine Glucose (UA) Negative Urine Ketones Negative Ur Blood (Man) Negative Urine Nitrate Negative Urine Bilirubin Negative Urine Urobilinogen 0.2 Leukocyte Esterase Rfl Negative Urine RBC 0-2 Urine WBC 0-5 Ur Squamous Epith Cells None seen Urine Bacteria None seen Urine Casts 3-5 02/21/25 03:29 WBC 9.4 RBC 3.21 L Hgb 9.0 L Hct 27.8 L MCV 86.6 MCH 28.0 MCHC 32.4 RDW 16.7 H Plt Count 208 MPV 10.9 H Sodium 124 L Potassium 4.2 Chloride 89 L Carbon Dioxide 29 Anion Gap 6 BUN 18 H Creatinine 0.99 Estim Creat Clear Calc 49 Estimated GFR 55 L Glucose 103 Calcium 8.1 L Magnesium 1.8 Total Bilirubin 0.2 AST 85 H ALT 129 H Alkaline Phosphatase 106 NT-Pro-B Natriuret Pep Total Protein 5.8 L Albumin 3.1 L Urine Color Urine Appearance Urine pH Ur Specific [place] Urine Protein Urine Glucose (UA) Urine Ketones Ur Blood (Man) Urine Nitrate Urine Bilirubin Urine Urobilinogen Leukocyte Esterase Rfl Urine RBC Urine WBC Ur Squamous Epith Cells Urine Bacteria Urine Casts
--- NOTE | 2025-02-21 07:41 | P.SEDATION_ITS ---
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 Present Complaint: Generalized fatigue and dyspnea Procedure to be performed/Plan: Pacemaker implantation Allergies Allergy/AdvReac Type Severity Reaction Status Date / Time Fish Containing Products Allergy Severe Dyspnea / Verified 02/19/25 13:15 SOB Iodinated Contrast Media Allergy Intermediate HIVES, RED Verified 02/19/25 13:15 FACE iodine Allergy Unknown Unknown Verified 02/19/25 13:15 Barbiturates Allergy Unknown Verified 02/19/25 13:15 bupivacaine Allergy Unknown Verified 02/19/25 13:15 diazepam (From Valium) Allergy Unknown Verified 02/19/25 13:15 latex Allergy Unknown Verified 02/19/25 13:15 menthol Allergy Unknown Verified 02/19/25 13:15 Sulfa (Sulfonamide Allergy Unknown Verified 02/19/25 13:15 Antibiotics) thiopental (From Pentothal) Allergy Unknown Verified 02/19/25 13:15 wool Allergy Unknown Verified 02/19/25 13:15 Home Medications ?Medication ?Instructions ?Recorded ?Confirmed ?Type fluticasone propionate 50 1 spray intranasal DAILY 09/09/19 02/19/25 History mcg/actuation nasal spray,suspension docusate sodium 100 mg tablet 200 mg PO BID Constipation 05/31/20 02/19/25 History amlodipine 10 mg tablet 10 mg PO DAILY 04/23/24 02/19/25 History bisacodyl 5 mg tablet,delayed 10 mg PO HS PRN Constipation 04/23/24 02/19/25 History release (Dulcolax (bisacodyl)) guaifenesin 1,200 mg tablet, 1,200 mg PO Q12H 04/23/24 02/19/25 History extended release 12 hr (Mucinex) memantine 5 mg tablet 5 mg PO BID 04/23/24 02/19/25 History ondansetron HCl 4 mg tablet 4 mg PO TID 04/23/24 02/19/25 History pregabalin 150 mg capsule (Lyrica) 150 mg PO BID #14 caps 05/04/24 02/19/25 Rx isosorbide mononitrate 30 mg 30 mg PO DAILY 08/06/24 02/19/25 History tablet,extended release 24 hr lidocaine 5 % topical patch 2 patch topical HS 08/06/24 02/19/25 History (Lidoderm) magnesium hydroxide 400 mg/5 mL 30 ml PO DAILY PRN constipation 08/06/24 02/19/25 History oral suspension (Gentle Laxative (magnesium hydroxide)) rivaroxaban 20 mg tablet (Xarelto) 20 mg PO DAILY@1700 #60 tabs 10/07/24 02/19/25 Rx irbesartan 150 mg tablet 300 mg (2 x 150 mg) PO QAM #30 tabs 10/12/24 02/19/25 Rx oxycodone-acetaminophen 5 mg-325 1 tablet PO Q8H PRN Pain Rated 10/12/24 02/19/25 Rx mg tablet 7-10 #10 tabs atorvastatin 10 mg tablet (Lipitor) 10 mg PO HS 01/18/25 02/19/25 History buspirone 10 mg tablet 10 mg PO Q12H 01/18/25 02/19/25 History clonazepam 0.5 mg tablet 0.5 mg PO Q12H 01/18/25 02/19/25 History famciclovir 250 mg tablet 250 mg PO Q12H 01/18/25 02/19/25 History lactulose 10 gram/15 mL oral 30 g PO BID 01/18/25 02/19/25 History solution (Enulose) magnesium citrate 300 ml PO DAILY PRN constipation 01/18/25 02/19/25 History polyvinyl alcohol-povidone 0.5 2 drp EACH EYE BID PRN dry eye(s) 01/18/25 02/19/25 History %-0.6 % eye drops (Artificial Tears (polyvinyl alcohol/povidone)) primidone 50 mg tablet See Rx Instructions .Route .COMPLEX 01/18/25 02/19/25 History sennosides 8.6 mg-docusate sodium 2 tab-cap PO BID 01/18/25 02/19/25 History 50 mg tablet (Senna Plus) spironolactone 25 mg tablet 25 mg PO DAILY 01/18/25 02/19/25 History venlafaxine 37.5 mg 37.5 mg PO DAILY 01/18/25 02/19/25 History capsule,extended release 24 hr zolpidem 5 mg tablet 5 mg PO HS 01/18/25 02/19/25 History clonidine 0.1 mg/24 hr weekly 1 patch transdermal WEEKLY #4 ea 01/21/25 02/19/25 Rx transdermal patch famotidine 10 mg tablet (Heartburn 10 mg PO DAILY 02/08/25 02/19/25 History Relief (famotidine)) metoprolol succinate 100 mg 300 mg PO QAM 02/08/25 02/19/25 History tablet,extended release 24 hr (Toprol XL) tizanidine 2 mg tablet 2 mg PO Q12H 02/08/25 02/19/25 History cefdinir 300 mg capsule 300 mg PO Q12H #10 caps 02/12/25 02/19/25 Rx hydralazine 50 mg tablet 50 mg PO Q8HR #30 tabs 02/12/25 02/19/25 Rx ipratropium 0.5 mg-albuterol 3 mg 3 ml inhalation Q6HRT PRN Wheezing 02/12/25 02/19/25 Rx (2.5 mg base)/3 mL nebulization #30 vials soln polyethylene glycol 3350 17 17 g PO DAILY 02/19/25 02/19/25 History gram/dose oral powder polyvinyl alcohol 1.4 % eye drops 2 drp EACH EYE BID 02/19/25 02/19/25 History (Artificial Tears (polyvinyl alcohol)) sodium chloride 1,000 mg soluble 1,000 mg PO BID 02/19/25 02/19/25 History tablet Current Medications: Active Medications Acetaminophen (Acetaminophen 325 Mg Tablet) 650 mg PO Q6H PRN PRN Reason: Mild Pain (1-3) or Fever Albuterol/Ipratropium (Ipratropium 0.5 Mg/Albuterol Sulfate 2.5 Mg Ampul.Neb 3 Ml) 3 ml INHALATION Q6HRT PRN PRN Reason: Wheezing Amlodipine Besylate (Amlodipine Besylate 10 Mg Tablet) 10 mg PO DAILY [facility] Last Admin: 02/20/25 08:38 Dose: 10 mg Artificial Tears (Artificial Tears Ophth Soln 15 Ml Bottle) 2 drop EACH EYE Q12HR [facility] Last Admin: 02/20/25 22:20 Dose: 2 drop Atorvastatin Calcium (Atorvastatin 10 Mg Tablet) 10 mg PO HS [facility] Last Admin: 02/20/25 22:21 Dose: 10 mg Bisacodyl (Bisacodyl 5 Mg Tablet Ec) 10 mg PO HS PRN PRN Reason: Constipation Buspirone HCl (Buspirone Hcl 10 Mg Tablet) 10 mg PO Q12HR [facility] Last Admin: 02/20/25 22:19 Dose: 10 mg Cefdinir (Cefdinir 300 Mg Capsule) 300 mg PO Q12HR [facility] Stop: 02/26/25 21:01 Last Admin: 02/20/25 22:19 Dose: 300 mg Clonazepam (Clonazepam (*Crx) 0.5 Mg Tablet) 0.5 mg PO Q12HR [facility] Last Admin: 02/20/25 22:19 Dose: 0.5 mg Clonidine HCl (Clonidine 0.1 Mg/24 Hr Patch) 1 patch TRANSDERM WEEKLY [facility] Famciclovir (Famciclovir 250 Mg Tablet) 250 mg PO Q12HR [facility] Last Admin: 02/20/25 22:19 Dose: 250 mg Famotidine (Famotidine 10 Mg Tablet) 10 mg PO DAILY [facility] Last Admin: 02/20/25 08:25 Dose: 10 mg Fluticasone Propionate (Fluticasone Propionate 0.05% Na Spr 16 Gm Btl (*Bkc)) 1 spray NASAL DAILY [facility] Last Admin: 02/20/25 08:39 Dose: 1 spray Furosemide (Furosemide Inj 40 Mg/4 Ml Vial) 40 mg IV PUSH BID [facility] Last Admin: 02/20/25 16:55 Dose: 40 mg Hydralazine HCl (Hydralazine Hcl 50 Mg Tablet) 50 mg PO Q8HR [facility] Last Admin: 02/21/25 05:28 Dose: Not Given Hydralazine HCl (Hydralazine Hcl 20 Mg/Ml Vial) 20 mg IV PUSH Q4H PRN PRN Reason: SBP more than 160 Last Admin: 02/20/25 18:46 Dose: 20 mg Irbesartan (Irbesartan 150 Mg Tablet) 300 mg PO QAM [facility] Last Admin: 02/20/25 08:27 Dose: 300 mg Lactulose (Lactulose 20 Gm/30 Ml Udc) 30 gm PO Q12HR PRN PRN Reason: Constipation Magnesium Citrate (Magnesium Citrate 300 Ml Btl) 300 ml PO DAILY PRN PRN Reason: constipation Magnesium Hydroxide (Magnesium Hydroxide Susp 30 Ml Udc) 30 ml PO DAILY PRN PRN Reason: constipation Memantine (Memantine 5 Mg Tablet) 5 mg PO Q12HR [facility] Last Admin: 02/20/25 22:19 Dose: 5 mg Methylprednisolone Sodium Succinate (Methylprednisolone Sod Succ 125 Mg Vial) 125 mg IV PUSH ONCE ONE Stop: 02/21/25 07:40 Ondansetron HCl (Ondansetron Hcl Odt 4 Mg Tablet) 4 mg PO Q8HR [facility] Last Admin: 02/21/25 05:27 Dose: 4 mg Oxycodone HCl (Oxycodone Hcl (*Crx) 5 Mg Tab Ir) 5 mg PO Q8HR PRN PRN Reason: Pain Rated 7-10 Polyethylene Glycol (Polyethylene Glycol 3350 17 Gm Powd.Pack) 17 gm PO DAILY PRN PRN Reason: Constipation Senna/Docusate Sodium (Senna/Docusate Sodium Tablet) 2 tab PO Q12HR [facility] Last Admin: 02/20/25 22:19 Dose: 2 tab Sodium Chloride (Sodium Chloride 1 Gm Tablet) 1 gm PO BID [facility] Last Admin: 02/20/25 16:55 Dose: 1 gm Spironolactone (Spironolactone 25 Mg Tablet) 25 mg PO DAILY [facility] Last Admin: 02/20/25 08:38 Dose: 25 mg Tizanidine HCl (Tizanidine Hcl 2 Mg Tablet) 2 mg PO Q12HR [facility] Last Admin: 02/20/25 22:19 Dose: 2 mg Venlafaxine HCl (Venlafaxine Hcl Xr 37.5 Mg Cap) 37.5 mg PO DAILY [facility] Last Admin: 02/20/25 08:26 Dose: 37.5 mg Sedation/Anesthesia: No previous sedation/anesthesia problems (including family history). [facility] Past Medical History Medical History History of atrial fibrillation Failure to thrive CVA (cerebral vascular accident) Chronic anticoagulation Kidney stone Chronic anemia Chronic respiratory failure with hypoxia, on home oxygen therapy Bipolar disorder Gastroesophageal reflux disease Hyperlipidemia Hypertension Obstructive sleep apnea intolerant to CPAP Left tibial fracture Chronic hyponatremia Shingles Anxiety Depression Gastroparesis Diverticulitis Asthma Epilepsy no longer on medication Seasonal allergies Surgical History Surgical History History of left above knee amputation History of right shoulder replacement History of cholecystectomy History of left knee replacement History of hysterectomy History of open reduction and internal fixation (ORIF) procedure Left tibia and right ankle. History of appendectomy History of tonsillectomy Family History Family History Mother Suicide Depression Heart disease Hypertension Heart failure Sibling Suicide Father Diabetes mellitus Emphysema lung Social History Social History Social History: Surrogate medical decision maker: Martina Rodney, daughter. Code status: Full code. Smoking status: Never smoker Second hand tobacco smoke exposure: No Alcohol intake: never Substance use: never Substance use type: does not use Do You Feel Safe in your Home?: Yes Lack of Transportation: No Lack of Food: Never True Current Housing: I Have Housing Concerned About Future Housing: No Difficulty Paying Gas/Electric Bills: No Difficulty Paying for Meds: No Currently Unemployed: No Education: High School Diploma/GED Difficulty w/ Childcare or Family Care: No Living arrangements: [facility] Occupation/Education: retired Spiritual care concerns: No Agree to blood products: No Mod Sed Physical Exam Physical Exam Pre Procedural Exam: Normal: Neck, Throat, Airway, Lungs and Neuro Exam and Variation: Appearance (Obese woman appearing her stated age comfortable and cooperative), Heart Size (PMI not palpable), Heart Rate (Bradycardic), Heart Rhythm and Extremities (Left [id number] amputation) Hours since solid foods: 12 Hours since liquid intake: 12 Mallampati Classification: class III Internal Medicine - PN: Obj Da Vital Signs Vital Signs: Vital Signs - 24 hr 02/20/25 08:00 02/20/25 08:00 02/20/25 10:00 Temperature Pulse Rate 37 L 35 L 34 L Respiratory Rate 20 16 Blood Pressure 108/38 L Pulse Oximetry 99 95 Oxygen Delivery Nasal Cannula Oxygen Flow Rate 2 02/20/25 10:00 02/20/25 11:55 02/20/25 12:00 Temperature 36.2 C L Pulse Rate 37 L 33 L 33 L Respiratory Rate 12 12 Blood Pressure 114/46 L Pulse Oximetry 97 97 Oxygen Delivery Nasal Cannula Oxygen Flow Rate 2 02/20/25 12:00 02/20/25 14:00 02/20/25 14:00 Temperature Pulse Rate 34 L 36 L 36 L Respiratory Rate 15 Blood Pressure 171/49 H Pulse Oximetry 99 Oxygen Delivery Oxygen Flow Rate 02/20/25 16:00 02/20/25 16:00 02/20/25 16:00 Temperature 36.4 C L Pulse Rate 36 L 39 L 42 L Respiratory Rate 15 14 Blood Pressure 140/78 Pulse Oximetry 99 96 Oxygen Delivery Nasal Cannula Oxygen Flow Rate 2 02/20/25 18:00 02/20/25 18:02 02/20/25 20:00 Temperature 36.6 C Pulse Rate 43 L 43 L 42 L Respiratory Rate 15 16 Blood Pressure 206/58 H 158/70 H Pulse Oximetry 96 97 Oxygen Delivery Oxygen Flow Rate 02/20/25 20:00 02/20/25 20:00 02/20/25 22:00 Temperature Pulse Rate 39 L 38 L Respiratory Rate 14 Blood Pressure 125/37 L Pulse Oximetry 97 97 Oxygen Delivery Nasal Cannula Oxygen Flow Rate 2 02/20/25 22:00 02/21/25 00:00 02/21/25 00:00 Temperature 36.8 C Pulse Rate 36 L 97 Respiratory Rate 14 Blood Pressure 89/29 L Pulse Oximetry 98 99 Oxygen Delivery Nasal Cannula Oxygen Flow Rate 2 02/21/25 00:00 02/21/25 02:00 02/21/25 02:00 Temperature Pulse Rate 36 L 33 L 33 L Respiratory Rate 12 Blood Pressure 121/41 L Pulse Oximetry 98 Oxygen Delivery Oxygen Flow Rate 02/21/25 04:00 02/21/25 04:00 02/21/25 04:00 Temperature 36.6 C Pulse Rate 36 L 31 L Respiratory Rate 15 Blood Pressure 120/45 L Pulse Oximetry 99 99 Oxygen Delivery Nasal Cannula Oxygen Flow Rate 2 02/21/25 06:00 02/21/25 06:00 Temperature Pulse Rate 37 L 37 L Respiratory Rate 13 Blood Pressure 165/44 H Pulse Oximetry 97 Oxygen Delivery Oxygen Flow Rate Intake/Output Intake/Output: Intake & Output 02/18/25 02/19/25 02/20/25 02/21/25 23:59 23:59 23:59 23:59 Intake Total 50 1020 250 Output Total 1900 200 Balance 50 -880 50 Meds/Results Medications: Active Medications Generic Name Dose Route Start Last Admin Trade Name Freq PRN Reason Stop Dose Admin Acetaminophen 650 mg 02/19/25 17:18 Acetaminophen 325 Mg Tablet PO Q6H PRN Mild Pain (1-3) or Fever Albuterol/Ipratropium 3 ml 02/20/25 00:27 Ipratropium 0.5 Mg/Albuterol Sulfate 2.5 Mg Ampul.Neb 3 Ml INHALATION Q6HRT PRN Wheezing Amlodipine Besylate 10 mg 02/20/25 09:00 02/20/25 08:38 Amlodipine Besylate 10 Mg Tablet PO 10 mg DAILY [facility]ELIN Administration Artificial Tears 2 drop 02/20/25 09:00 02/20/25 22:20 Artificial Tears Ophth Soln 15 Ml Bottle EACH EYE 2 drop Q12HR [facility]ELIN Administration Atorvastatin Calcium 10 mg 02/20/25 21:00 02/20/25 22:21 Atorvastatin 10 Mg Tablet PO 10 mg HS [facility]IN Administration Bisacodyl 10 mg 02/20/25 00:05 Bisacodyl 5 Mg Tablet Ec PO HS PRN Constipation Buspirone HCl 10 mg 02/20/25 09:00 02/20/25 22:19 Buspirone Hcl 10 Mg Tablet PO 10 mg Q12HR [facility]IN Administration Cefdinir 300 mg 02/20/25 09:00 02/20/25 22:19 Cefdinir 300 Mg Capsule PO 02/26/25 21:01 300 mg Q12HR [facility]ELIN Administration Clonazepam 0.5 mg 02/20/25 09:00 02/20/25 22:19 Clonazepam (*Crx) 0.5 Mg Tablet PO 0.5 mg Q12HR [facility]ELIN Administration Clonidine HCl 1 patch 02/26/25 09:00 Clonidine 0.1 Mg/24 Hr Patch TRANSDERM WEEKLY [facility] Famciclovir 250 mg 02/20/25 09:00 02/20/25 22:19 Famciclovir 250 Mg Tablet PO 250 mg Q12HR [facility]IN Administration Famotidine 10 mg 02/20/25 09:00 02/20/25 08:25 Famotidine 10 Mg Tablet PO 10 mg DAILY [facility] Administration Fluticasone Propionate 1 spray 02/20/25 09:00 02/20/25 08:39 Fluticasone Propionate 0.05% Na Spr 16 Gm Btl (*Bkc) NASAL 1 spray DAILY [facility] Administration Furosemide 40 mg 02/20/25 07:40 02/20/25 16:55 Furosemide Inj 40 Mg/4 Ml Vial IV PUSH 40 mg BID [facility] Administration Hydralazine HCl 50 mg 02/20/25 06:00 02/21/25 05:28 Hydralazine Hcl 50 Mg Tablet PO Not Given Q8HR [facility]IN Hydralazine HCl 20 mg 02/20/25 07:43 02/20/25 18:46 Hydralazine Hcl 20 Mg/Ml Vial IV PUSH 20 mg Q4H PRN Administration SBP more than 160 Irbesartan 300 mg 02/20/25 09:00 02/20/25 08:27 Irbesartan 150 Mg Tablet PO 300 mg QAM [facility] Administration Lactulose 30 gm 02/20/25 11:15 Lactulose 20 Gm/30 Ml Udc PO Q12HR PRN Constipation Magnesium Citrate 300 ml 02/20/25 00:27 Magnesium Citrate 300 Ml Btl PO DAILY PRN constipation Magnesium Hydroxide 30 ml 02/20/25 00:27 Magnesium Hydroxide Susp 30 Ml Udc PO DAILY PRN constipation Memantine 5 mg 02/20/25 09:00 02/20/25 22:19 Memantine 5 Mg Tablet PO 5 mg Q12HR [facility]IN Administration Methylprednisolone Sodium Succinate 125 mg 02/21/25 07:39 Methylprednisolone Sod Succ 125 Mg Vial IV PUSH 02/21/25 07:40 ONCE ONE Ondansetron HCl 4 mg 02/20/25 06:00 02/21/25 05:27 Ondansetron Hcl Odt 4 Mg Tablet PO 4 mg Q8HR [facility]IN Administration Oxycodone HCl 5 mg 02/20/25 20:30 Oxycodone Hcl (*Crx) 5 Mg Tab Ir PO Q8HR PRN Pain Rated 7-10 Polyethylene Glycol 17 gm 02/20/25 11:15 Polyethylene Glycol 3350 17 Gm Powd.Pack PO DAILY PRN Constipation Senna/Docusate Sodium 2 tab 02/20/25 09:00 02/20/25 22:19 Senna/Docusate Sodium Tablet PO 2 tab Q12HR [facility]IN Administration Sodium Chloride 1 gm 02/20/25 09:00 02/20/25 16:55 Sodium Chloride 1 Gm Tablet PO 1 gm BID [facility]IN Administration Spironolactone 25 mg 02/20/25 09:00 02/20/25 08:38 Spironolactone 25 Mg Tablet PO 25 mg DAILY [facility] Administration Tizanidine HCl 2 mg 02/20/25 09:00 02/20/25 22:19 Tizanidine Hcl 2 Mg Tablet PO 2 mg Q12HR [facility]IN Administration Venlafaxine HCl 37.5 mg 02/20/25 09:00 02/20/25 08:26 Venlafaxine Hcl Xr 37.5 Mg Cap PO 37.5 mg DAILY [facility] Administration Radiology Results: ITS Impressions Chest X-Ray 02/19/25 13:57 IMPRESSION: Significant peribronchial thickening with mild pulmonary vascular congestion and a left-sided pleural effusion. Labs 02/21/25 03:29 02/21/25 03:29 Labs: Laboratory Results - last 24 hr 02/20/25 02/20/25 02/20/25 05:28 10:40 14:32 WBC RBC Hgb Hct MCV MCH MCHC RDW Plt Count MPV Sodium 120 L Potassium 4.6 Chloride 87 L Carbon Dioxide 28 Anion Gap 5 BUN 16 Creatinine 0.81 Estim Creat Clear Calc 59 Estimated GFR > 60 Glucose 148 H Calcium 8.2 L Magnesium Total Bilirubin AST ALT Alkaline Phosphatase NT-Pro-B Natriuret Pep 2980 H Total Protein Albumin Urine Color Yellow Urine Appearance Clear Urine pH 5.5 Ur Specific Irving 1.007 Urine Protein 3+ H Urine Glucose (UA) Negative Urine Ketones Negative Ur Blood (Man) Negative Urine Nitrate Negative Urine Bilirubin Negative Urine Urobilinogen 0.2 Leukocyte Esterase Rfl Negative Urine RBC 0-2 Urine WBC 0-5 Ur Squamous Epith Cells None seen Urine Bacteria None seen Urine Casts 3-5 02/21/25 03:29 WBC 9.4 RBC 3.21 L Hgb 9.0 L Hct 27.8 L MCV 86.6 MCH 28.0 MCHC 32.4 RDW 16.7 H Plt Count 208 MPV 10.9 H Sodium 124 L Potassium 4.2 Chloride 89 L Carbon Dioxide 29 Anion Gap 6 BUN 18 H Creatinine 0.99 Estim Creat Clear Calc 49 Estimated GFR 55 L Glucose 103 Calcium 8.1 L Magnesium 1.8 Total Bilirubin 0.2 AST 85 H ALT 129 H Alkaline Phosphatase 106 NT-Pro-B Natriuret Pep Total Protein 5.8 L Albumin 3.1 L Urine Color Urine Appearance Urine pH Ur Specific Irving Urine Protein Urine Glucose (UA) Urine Ketones Ur Blood (Man) Urine Nitrate Urine Bilirubin Urine Urobilinogen Leukocyte Esterase Rfl Urine RBC Urine WBC Ur Squamous Epith Cells Urine Bacteria Urine Casts ASA Classification/Sedation ASA Classification/Sedation ASA Class: III Emergent: No Risks: Risks, benefits and alternatives explained and patient/family accepted plan for sedation. Patient re-evaluated immediately prior to sedation.
[2025-02-21] MEDS: FUROSEMIDE INJ 40 MG/4 ML VIAL IV PUSH ×2 (08:25→17:02)
[2025-02-21] MEDS: FAMOTIDINE 10 MG TABLET PO (08:27)
[2025-02-21] MEDS: MEMANTINE 5 MG TABLET PO ×2 (08:27→20:38)
[2025-02-21] MEDS: SPIRONOLACTONE 25 MG TABLET PO (08:27)
[2025-02-21] MEDS: CEFDINIR 300 MG CAPSULE PO ×2 (08:27→20:37)
[2025-02-21] MEDS: VENLAFAXINE HCL XR 37.5 MG CAP PO (08:28)
[2025-02-21] MEDS: TIZANIDINE HCL 2 MG TABLET PO ×2 (08:28→20:38)
[2025-02-21] MEDS: FAMCICLOVIR 250 MG TABLET PO ×2 (08:28→20:38)
[2025-02-21] MEDS: SODIUM CHLORIDE 1 GM TABLET PO ×2 (08:28→16:53)
[2025-02-21] MEDS: FLUTICASONE PROPIONATE 0.05% NA SPR 16 GM BTL (*BKC) 1 SPRAY NASAL (08:29)
[2025-02-21] MEDS: ARTIFICIAL TEARS OPHTH SOLN 15 ML BOTTLE 2 DROP EACH EYE ×2 (08:29→20:38)
--- NOTE | 2025-02-21 09:22 | P.PNINT_ITS ---
Progress Note: A&P Assessment and Plan (1) Bradycardia: Code(s): R00.1 - Bradycardia, unspecified Status: Acute Assessment and Plan: Patient presented with complete heart block and was on beta-geoff. Now in sinus bradycardia. Blood pressure is adequate Most recent echo reviewed Plan for permanent pacemaker today be by Cardiology Continue telemetry and hemodynamic monitoring (2) Hypertension: Code(s): I10 - Essential (primary) hypertension Status: Acute Assessment and Plan: Blood pressure elevated this more Until Norvasc, Avapro and IV p.r.n. hydralazine Patient also had clonidine patch which was taken off overnight due to low blood pressure. I will resume p.o. clonidine if needed Continue IV Lasix Monitor and adjust accordingly (3) Complete heart block: Code(s): I44.2 - Atrioventricular block, complete Status: Acute Assessment and Plan: See above (4) Atrial fibrillation with RVR: Code(s): I48.91 - Unspecified atrial fibrillation Status: Acute Assessment and Plan: History of AFib with RVR. Currently in sinus bradycardia Anticoagulation on hold for procedure (5) Chronic anticoagulation: Code(s): Z79.01 - [facility] (current) use of anticoagulants Status: Acute Assessment and Plan: Patient is on Xarelto which is on hold for permanent pacemaker placement (6) Hyponatremia: Code(s): E87.1 - Hypo-osmolality and hyponatremia Status: Acute Assessment and Plan: Continue sodium chloride p.o., fluid restriction IV Lasix Monitor BMP Consult nephrology (7) Congestive heart failure: Code(s): I50.9 - Heart failure, unspecified Status: Acute Assessment and Plan: Most recent echo 07/2024 Summary 1. Technically difficult study with limited views. 2. Left ventricular chamber dimension is normal. 3. Left ventricular systolic function is normal, estimated at 60-65%. 4. There is mildly increased left ventricular wall thickness. 5. The left ventricular diastolic function is grade I diastolic dysfunction. 6. Right ventricular systolic function is normal. 7. Left atrial chamber dimension is mildly enlarged. 8. There is moderate aortic valve regurgitation. 9. There is mild mitral valve regurgitation. 10. There is mild tricuspid valve regurgitation. IV Lasix b.i.d. ordered (8) UTI (urinary tract infection): Qualifiers: Hematuria presence: without hematuria Urinary tract infection type: acute cystitis Qualified Code(s): N30.00 - Acute cystitis without hematuria Code(s): N39.0 - Urinary tract infection, site not specified Status: Resolved Assessment and Plan: Recently diagnosed UTI. Continue cefdinir. Afebrile. Plan DVT prophylaxis -SCD. Anticoagulation on hold Nutrition -fluid restriction, diet ordered Patient is on Pepcid which will be continued Incentive spirometry Total Critical Care Time - 30 minutes Due to a high probability of clinically significant, life threatening deterioration, the patient required my highest level of preparedness to intervene emergently and I personally spent this critical care time directly and personally managing the patient. This critical care time included obtaining a history; examining the patient; pulse oximetry; ordering and review of studies; arranging urgent treatment with development of a management plan; evaluation of patient's response to treatment; frequent reassessment; and discussions with other providers. It was exclusive of separately billable procedures and treating other patients and teaching time. Please see Assessment and Plan section and the rest of the note for further information on patient assessment and treatment Subjective Date/time seen: 02/21/25 No new complaints this morning continues to be in sinus bradycardia with heart rate ranging intermittent 30s to 40s Blood pressure has been labile. She was hypertensive yesterday and after receiving medications her blood pressure at 1 time dropped into 90s but clonidine patch was taken off and blood pressure recovered and patient is hypertensive again this morning. She denies any new complaints states she feels weak and tired otherwise no new complaint. She is on 2 L nasal cannula oxygen which is her baseline. Urine output is acceptable. She is afebrile. Patient denies fever, chest pain, shortness of breath, cough, nausea vomiting, abdominal pain,, diarrhea, headache or constipation. All other systems were reviewed and were negative Review of Systems Review of Systems: All systems reviewed & are unremarkable except as noted in HPI and below (HPI) Exam Narrative: General: Pt is alert awake and in NAD Lungs/Chest: Trachea central Clear BS B/L, few crackles at bases, breath sounds are decreased at bases Cardiac: RRR. Normal S1 S2. No murmurs Circulation: Pedal pulses are intact and symmetrical. Abdomen: Normal bowel sounds.. Soft. NT. ND. Extremities: Left BKA, right side lower extremity edema : Delarosa in place Neurologic: Follows commands. Moves all 4 extremities PERRL AO x3 Skin: No Rash Objective Data Vital Signs Vital Signs: Vital Signs - 24 hr 02/20/25 10:00 02/20/25 10:00 02/20/25 11:55 Temperature 36.2 C L Pulse Rate 34 L 37 L 33 L Respiratory Rate 16 12 Blood Pressure 108/38 L 114/46 L Pulse Oximetry 95 97 Oxygen Delivery Oxygen Flow Rate 02/20/25 12:00 02/20/25 12:00 02/20/25 14:00 Temperature Pulse Rate 33 L 34 L 36 L Respiratory Rate 12 Blood Pressure Pulse Oximetry 97 Oxygen Delivery Nasal Cannula Oxygen Flow Rate 2 02/20/25 14:00 02/20/25 16:00 02/20/25 16:00 Temperature Pulse Rate 36 L 36 L 39 L Respiratory Rate 15 15 Blood Pressure 171/49 H Pulse Oximetry 99 99 Oxygen Delivery Nasal Cannula Oxygen Flow Rate 2 02/20/25 16:00 02/20/25 18:00 02/20/25 18:02 Temperature 36.4 C L Pulse Rate 42 L 43 L 43 L Respiratory Rate 14 15 Blood Pressure 140/78 206/58 H Pulse Oximetry 96 96 Oxygen Delivery Oxygen Flow Rate 02/20/25 20:00 02/20/25 20:00 02/20/25 20:00 Temperature 36.6 C Pulse Rate 42 L 39 L Respiratory Rate 16 Blood Pressure 158/70 H Pulse Oximetry 97 97 Oxygen Delivery Nasal Cannula Oxygen Flow Rate 2 02/20/25 22:00 02/20/25 22:00 02/21/25 00:00 Temperature Pulse Rate 38 L 36 L Respiratory Rate 14 Blood Pressure 125/37 L Pulse Oximetry 97 98 Oxygen Delivery Nasal Cannula Oxygen Flow Rate 2 02/21/25 00:00 02/21/25 00:00 02/21/25 02:00 Temperature 36.8 C Pulse Rate 97 36 L 33 L Respiratory Rate 14 Blood Pressure 89/29 L Pulse Oximetry 99 Oxygen Delivery Oxygen Flow Rate 02/21/25 02:00 02/21/25 04:00 02/21/25 04:00 Temperature 36.6 C Pulse Rate 33 L 36 L Respiratory Rate 12 15 Blood Pressure 121/41 L 120/45 L Pulse Oximetry 98 99 99 Oxygen Delivery Nasal Cannula Oxygen Flow Rate 2 02/21/25 04:00 02/21/25 06:00 02/21/25 06:00 Temperature Pulse Rate 31 L 37 L 37 L Respiratory Rate 13 Blood Pressure 165/44 H Pulse Oximetry 97 Oxygen Delivery Oxygen Flow Rate 02/21/25 08:00 02/21/25 08:22 02/21/25 08:30 Temperature 36.9 C Pulse Rate 38 L 37 L Respiratory Rate 11 L 17 Blood Pressure 182/50 H Pulse Oximetry 99 98 Oxygen Delivery Nasal Cannula Oxygen Flow Rate 2 Intake/Output Intake/Output: Intake & Output 02/18/25 02/19/25 02/20/25 02/21/25 23:59 23:59 23:59 23:59 Intake Total 50 1020 250 Output Total 1900 200 Balance 50 -880 50 Meds/Results Medications: Active Medications Generic Name Dose Route Start Last Admin Trade Name Freq PRN Reason Stop Dose Admin Acetaminophen 650 mg 02/19/25 17:18 Acetaminophen 325 Mg Tablet PO Q6H PRN Mild Pain (1-3) or Fever Albuterol/Ipratropium 3 ml 02/20/25 00:27 Ipratropium 0.5 Mg/Albuterol Sulfate 2.5 Mg Ampul.Neb 3 Ml INHALATION Q6HRT PRN Wheezing Amlodipine Besylate 10 mg 02/20/25 09:00 02/20/25 08:38 Amlodipine Besylate 10 Mg Tablet PO 10 mg DAILY KELIN Administration Artificial Tears 2 drop 02/20/25 09:00 02/21/25 08:29 Artificial Tears Ophth Soln 15 Ml Bottle EACH EYE 2 drop Q12HR KELIN Administration Atorvastatin Calcium 10 mg 02/20/25 21:00 02/20/25 22:21 Atorvastatin 10 Mg Tablet PO 10 mg HS KELIN Administration Bisacodyl 10 mg 02/20/25 00:05 Bisacodyl 5 Mg Tablet Ec PO HS PRN Constipation Buspirone HCl 10 mg 02/20/25 09:00 02/21/25 08:28 Buspirone Hcl 10 Mg Tablet PO 10 mg Q12HR KELIN Administration Cefdinir 300 mg 02/20/25 09:00 02/21/25 08:27 Cefdinir 300 Mg Capsule PO 02/26/25 21:01 300 mg Q12HR KELIN Administration Clonazepam 0.5 mg 02/20/25 09:00 02/20/25 22:19 Clonazepam (*Crx) 0.5 Mg Tablet PO 0.5 mg Q12HR KELIN Administration Famciclovir 250 mg 02/20/25 09:00 02/21/25 08:28 Famciclovir 250 Mg Tablet PO 250 mg Q12HR [facility] Administration Famotidine 10 mg 02/20/25 09:00 02/21/25 08:27 Famotidine 10 Mg Tablet PO 10 mg DAILY KELIN Administration Fluticasone Propionate 1 spray 02/20/25 09:00 02/21/25 08:29 Fluticasone Propionate 0.05% Na Spr 16 Gm Btl (*Bkc) NASAL 1 spray DAILY [facility] Administration Furosemide 40 mg 02/20/25 07:40 02/21/25 08:25 Furosemide Inj 40 Mg/4 Ml Vial IV PUSH 40 mg BID [facility] Administration Hydralazine HCl 50 mg 02/20/25 06:00 02/21/25 05:28 Hydralazine Hcl 50 Mg Tablet PO Not Given Q8HR [facility] Hydralazine HCl 20 mg 02/20/25 07:43 02/20/25 18:46 Hydralazine Hcl 20 Mg/Ml Vial IV PUSH 20 mg Q4H PRN Administration SBP more than 160 Irbesartan 300 mg 02/20/25 09:00 02/20/25 08:27 Irbesartan 150 Mg Tablet PO 300 mg QAM [facility] Administration Lactulose 30 gm 02/20/25 11:15 Lactulose 20 Gm/30 Ml Udc PO Q12HR PRN Constipation Magnesium Citrate 300 ml 02/20/25 00:27 Magnesium Citrate 300 Ml Btl PO DAILY PRN constipation Magnesium Hydroxide 30 ml 02/20/25 00:27 Magnesium Hydroxide Susp 30 Ml Udc PO DAILY PRN constipation Memantine 5 mg 02/20/25 09:00 02/21/25 08:27 Memantine 5 Mg Tablet PO 5 mg Q12HR [facility] Administration Ondansetron HCl 4 mg 02/20/25 06:00 02/21/25 05:27 Ondansetron Hcl Odt 4 Mg Tablet PO 4 mg Q8HR [facility] Administration Oxycodone HCl 5 mg 02/20/25 20:30 Oxycodone Hcl (*Crx) 5 Mg Tab Ir PO Q8HR PRN Pain Rated 7-10 Polyethylene Glycol 17 gm 02/20/25 11:15 Polyethylene Glycol 3350 17 Gm Powd.Pack PO DAILY PRN Constipation Senna/Docusate Sodium 2 tab 02/20/25 09:00 02/20/25 22:19 Senna/Docusate Sodium Tablet PO 2 tab Q12HR [facility] Administration Sodium Chloride 1 gm 02/20/25 09:00 02/21/25 08:28 Sodium Chloride 1 Gm Tablet PO 1 gm BID [facility]ELIN Administration Spironolactone 25 mg 02/20/25 09:00 02/21/25 08:27 Spironolactone 25 Mg Tablet PO 25 mg DAILY [facility]ELIN Administration Tizanidine HCl 2 mg 02/20/25 09:00 02/21/25 08:28 Tizanidine Hcl 2 Mg Tablet PO 2 mg Q12HR [facility] Administration Venlafaxine HCl 37.5 mg 02/20/25 09:00 02/21/25 08:28 Venlafaxine Hcl Xr 37.5 Mg Cap PO 37.5 mg DAILY KELIN Administration Radiology Results: ITS Impressions Chest X-Ray 02/19/25 13:57 IMPRESSION: Significant peribronchial thickening with mild pulmonary vascular congestion and a left-sided pleural effusion. Labs Labs: Laboratory Results - last 24 hr 02/20/25 02/20/25 02/21/25 10:40 14:32 03:29 WBC 9.4 RBC 3.21 L Hgb 9.0 L Hct 27.8 L MCV 86.6 MCH 28.0 MCHC 32.4 RDW 16.7 H Plt Count 208 MPV 10.9 H Sodium 120 L 124 L Potassium 4.6 4.2 Chloride 87 L 89 L Carbon Dioxide 28 29 Anion Gap 5 6 BUN 16 18 H Creatinine 0.81 0.99 Estim Creat Clear Calc 59 49 Estimated GFR > 60 55 L Glucose 148 H 103 Calcium 8.2 L 8.1 L Magnesium 1.8 Total Bilirubin 0.2 AST 85 H ALT 129 H Alkaline Phosphatase 106 Total Protein 5.8 L Albumin 3.1 L Urine Color Yellow Urine Appearance Clear Urine pH 5.5 Ur Specific Delong 1.007 Urine Protein 3+ H Urine Glucose (UA) Negative Urine Ketones Negative Ur Blood (Man) Negative Urine Nitrate Negative Urine Bilirubin Negative Urine Urobilinogen 0.2 Leukocyte Esterase Rfl Negative Urine RBC 0-2 Urine WBC 0-5 Ur Squamous Epith Cells None seen Urine Bacteria None seen Urine Casts 3-5 Quality VTE Prophylaxis VTE prophylaxis: mechanical ordered
[2025-02-21] MEDS: IRBESARTAN 150 MG TABLET 300 MG PO (09:44)
[2025-02-21] MEDS: clonazePAM (*CRX) 0.5 MG TABLET PO ×2 (09:44→20:37)
--- NOTE | 2025-02-21 12:57 | PC.NURSE ---
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
--- NOTE | 2025-02-21 13:18 | PM.PNNEP ---
Progress Note: A&P Assessment and Plan (1) Hyponatremia: Code(s): E87.1 - Hypo-osmolality and hyponatremia Status: Acute Assessment and Plan: mild improvement noted acute on chronic issue baseline sodium runs high 120s to low 130s multifactorial issue: medications (buspirone, clonzepam, venlafaxine...etc) history of CVAs mild volume overload excess free water intake reactive airway disease (?) bradycardia (?) agree with fluid restriction and salt tablets on IV lasix as well follow trend of repeat sodium levels (2) Bradycardia: Code(s): R00.1 - Bradycardia, unspecified Status: Acute Assessment and Plan: as noted currently complete heart block noted in ER was on metoprolol remains hemodynamically stable Cardiology following plan permanent pacemaker later today follow telemetry (3) Congestive heart failure: Code(s): I50.9 - Heart failure, unspecified Status: Acute Assessment and Plan: Echo (July 2024) noted: left ventricular systolic function is normal, estimated at 60-65% left ventricular diastolic function is grade I diastolic dysfunction moderate aortic valve regurgitation mild mitral valve regurgitation mild tricuspid valve regurgitation. given CXR findings, on IV diuretics follow volume status (4) Hypertension: Code(s): I10 - Essential (primary) hypertension Status: Acute Assessment and Plan: erratic as noted resumed on oral meds of amlodipine/irbesartan/hydralazine off clonidine patch PRN IV hydralazine follow trend of hemodynamics (5) UTI (urinary tract infection): Qualifiers: Hematuria presence: without hematuria Urinary tract infection type: acute cystitis Qualified Code(s): N30.00 - Acute cystitis without hematuria Code(s): N39.0 - Urinary tract infection, site not specified Status: Resolved Assessment and Plan: as noted on previous hospitalization on antibiotics (6) Anemia: Qualifiers: Anemia type: unspecified type Qualified Code(s): D64.9 - Anemia, unspecified Code(s): D64.9 - Anemia, unspecified Status: Chronic Assessment and Plan: probably due to acute illness and recent hospitalizations follow trend of H/H Will continue to follow. Subjective Date/time seen: 02/21/25 13:18 Interval history: Follow-up for acute on chronic hyponatremia. Noted plans for permanent pacemaker placement later this afternoon due to ongoing symptomatic bradycardia; fluctuating hemodynamics noted in the last 24 hours; sodium a bit better at this time with current therapy/interventions; only real complaint is that of fatigue/weakness; no other acute issues/events overnight or earlier this morning. Exam Narrative: General: elderly but WD/WN female in NAD Heart: bradycardic, normal S1 and S2; no rub Lungs: few bibasilar crackles Abdomen: soft, nontender, nondistended, positive bowel sounds Extremities: no cyanosis or clubbing; 1+ edema; s/p left BKA Skin: warm and dry Objective Data Vital Signs Vital Signs: Vital Signs Temp Pulse Resp BP Pulse Ox O2 Del Method O2 Flow Rate 02/21/25 12:47 97.7 F 02/21/25 12:00 33 L 02/21/25 12:00 33 L 12 97 Nasal Cannula 2 02/21/25 12:00 33 L 12 113/42 L 97 02/21/25 10:00 41 L 02/21/25 10:00 36 L 14 137/36 L 97 02/21/25 08:30 37 L 17 98 Nasal Cannula 2 02/21/25 08:22 98.5 F 02/21/25 08:00 38 L 02/21/25 08:00 38 L 17 99 Nasal Cannula 2 02/21/25 08:00 38 L 11 L 182/50 H 99 02/21/25 06:00 37 L 13 165/44 H 97 02/21/25 06:00 37 L 02/21/25 04:00 31 L 02/21/25 04:00 99 Nasal Cannula 2 02/21/25 04:00 97.9 F 36 L 15 120/45 L 99 02/21/25 02:00 33 L 12 121/41 L 98 02/21/25 02:00 33 L 02/21/25 00:00 36 L 02/21/25 00:00 98.2 F 97 14 89/29 L 99 02/21/25 00:00 98 Nasal Cannula 2 02/20/25 22:00 36 L 02/20/25 22:00 38 L 14 125/37 L 97 02/20/25 20:00 39 L 02/20/25 20:00 97 Nasal Cannula 2 02/20/25 20:00 97.9 F 42 L 16 158/70 H 97 Intake/Output Intake/Output: Intake & Output 02/18/25 02/19/25 02/20/25 02/21/25 23:59 23:59 23:59 23:59 Intake Total 50 1020 780 Output Total 0260 900 Balance 50 -610 120 Meds/Results Medications: Active Medications Generic Name Dose Route Start Last Admin Trade Name Freq PRN Reason Stop Dose Admin Acetaminophen 650 mg 02/19/25 17:18 Acetaminophen 325 Mg Tablet PO Q6H PRN Mild Pain (1-3) or Fever Albuterol/Ipratropium 3 ml 02/20/25 00:27 Ipratropium 0.5 Mg/Albuterol Sulfate 2.5 Mg Ampul.Neb 3 Ml INHALATION Q6HRT PRN Wheezing Amlodipine Besylate 10 mg 02/20/25 09:00 02/21/25 09:44 Amlodipine Besylate 10 Mg Tablet PO 10 mg DAILY KELIN Administration Artificial Tears 2 drop 02/20/25 09:00 02/21/25 08:29 Artificial Tears Ophth Soln 15 Ml Bottle EACH EYE 2 drop Q12HR [facility] Administration Atorvastatin Calcium 10 mg 02/20/25 21:00 02/20/25 22:21 Atorvastatin 10 Mg Tablet PO 10 mg HS [facility]IN Administration Bisacodyl 10 mg 02/20/25 00:05 Bisacodyl 5 Mg Tablet Ec PO HS PRN Constipation Buspirone HCl 10 mg 02/20/25 09:00 02/21/25 08:28 Buspirone Hcl 10 Mg Tablet PO 10 mg Q12HR [facility] Administration Cefdinir 300 mg 02/20/25 09:00 02/21/25 08:27 Cefdinir 300 Mg Capsule PO 02/26/25 21:01 300 mg Q12HR [facility] Administration Clonazepam 0.5 mg 02/20/25 09:00 02/21/25 09:44 Clonazepam (*Crx) 0.5 Mg Tablet PO 0.5 mg Q12HR [facility] Administration Famciclovir 250 mg 02/20/25 09:00 02/21/25 08:28 Famciclovir 250 Mg Tablet PO 250 mg Q12HR [facility] Administration Famotidine 10 mg 02/20/25 09:00 02/21/25 08:27 Famotidine 10 Mg Tablet PO 10 mg DAILY [facility] Administration Fluticasone Propionate 1 spray 02/20/25 09:00 02/21/25 08:29 Fluticasone Propionate 0.05% Na Spr 16 Gm Btl (*Bkc) NASAL 1 spray DAILY [facility] Administration Furosemide 40 mg 02/20/25 07:40 02/21/25 17:02 Furosemide Inj 40 Mg/4 Ml Vial IV PUSH 40 mg BID [facility] Administration Hydralazine HCl 50 mg 02/20/25 06:00 02/21/25 05:28 Hydralazine Hcl 50 Mg Tablet PO Not Given Q8HR [facility] Hydralazine HCl 20 mg 02/20/25 07:43 02/20/25 18:46 Hydralazine Hcl 20 Mg/Ml Vial IV PUSH 20 mg Q4H PRN Administration SBP more than 160 Hydrocortisone 1 applic 02/21/25 16:20 02/21/25 16:53 Hydrocortisone 1% 30 Gm Cream TOPICAL 1 applic TID PRN Administration Itching Sodium Chloride 1,000 mls @ 50 mls/hr 02/21/25 14:05 02/21/25 15:17 Normal Saline Iv IV CONT 02/21/25 22:04 50 mls/hr .Q20H [facility]ELIN Administration Irbesartan 300 mg 02/20/25 09:00 02/21/25 09:44 Irbesartan 150 Mg Tablet PO 300 mg QAM [facility] Administration Lactulose 30 gm 02/20/25 11:15 Lactulose 20 Gm/30 Ml Udc PO Q12HR PRN Constipation Magnesium Citrate 300 ml 02/20/25 00:27 Magnesium Citrate 300 Ml Btl PO DAILY PRN constipation Magnesium Hydroxide 30 ml 02/20/25 00:27 Magnesium Hydroxide Susp 30 Ml Udc PO DAILY PRN constipation Memantine 5 mg 02/20/25 09:00 02/21/25 08:27 Memantine 5 Mg Tablet PO 5 mg Q12HR [facility] Administration Ondansetron HCl 4 mg 02/20/25 06:00 02/21/25 15:16 Ondansetron Hcl Odt 4 Mg Tablet PO Not Given Q8HR [facility] Oxycodone HCl 5 mg 02/20/25 20:30 02/21/25 18:27 Oxycodone Hcl (*Crx) 5 Mg Tab Ir PO 5 mg Q8HR PRN Administration Pain Rated 7-10 Polyethylene Glycol 17 gm 02/20/25 11:15 Polyethylene Glycol 3350 17 Gm Powd.Pack PO DAILY PRN Constipation Senna/Docusate Sodium 2 tab 02/20/25 09:00 02/21/25 09:45 Senna/Docusate Sodium Tablet PO Not Given Q12HR [facility]ELIN Sodium Chloride 1 gm 02/20/25 09:00 02/21/25 16:53 Sodium Chloride 1 Gm Tablet PO 1 gm BID KELIN Administration Spironolactone 25 mg 02/20/25 09:00 02/21/25 08:27 Spironolactone 25 Mg Tablet PO 25 mg DAILY [facility]ELIN Administration Tizanidine HCl 2 mg 02/20/25 09:00 02/21/25 08:28 Tizanidine Hcl 2 Mg Tablet PO 2 mg Q12HR [facility] Administration Venlafaxine HCl 37.5 mg 02/20/25 09:00 02/21/25 08:28 Venlafaxine Hcl Xr 37.5 Mg Cap PO 37.5 mg DAILY KELIN Administration Radiology Results: ITS Impressions Chest X-Ray 02/19/25 13:57 IMPRESSION: Significant peribronchial thickening with mild pulmonary vascular congestion and a left-sided pleural effusion. Labs Labs: Laboratory Tests 02/21/25 03:29 02/21/25 03:29 Calcium 8.1 L Magnesium 1.8 Total Bilirubin 0.2 AST 85 H ALT 129 H Alkaline Phosphatase 106 Total Protein 5.8 L Albumin 3.1 L
--- NOTE | 2025-02-21 14:02 | ECG_ITS ---
Test Date: 2025-02-21 16:08:31 Measurements Intervals Adin Rate: 73 P: 34 MT: 157 QRS: 48 QRSD: 176 T: -72 QT: 500 QTc: 552 Interpretive Statements ELECTRONIC VENTRICULAR PACEMAKER ABNORMAL RHYTHM ECG Compared to ECG 02/19/2025 15:26:18 Sinus bradycardia no longer present Electronically Signed On 02-22-2025 11:02:10 CDT by Daniel Raines M.D.
--- NOTE | 2025-02-21 14:04 | WPDCARDPROC ---
Cardiac Cath Procedure Note Date of procedure:: 02/21/25 Performing physician:: Adithya Dominguez MD Indication:: Symptomatic bradycardia with acquired complete heart block Brief clinical history:: This is a 74-year-old woman hospitalized with fatigue and lack of energy. She was found to be bradycardic with high-grade AV block with examples of complete heart block as well as Mobitz type 2 second-degree AV block. Following with withdrawal of a beta-geoff her rhythm has not changed. For this reason a pacemaker implant has been recommended Procedure Procedure performed:: Implantation of Medtronic Micra AV leadless pacemaker Sedation/Medication given:: Fentanyl 50 mg Versed 4 mg Access site:: Right femoral vein Estimated blood loss:: 20 cc Procedure note:: Patient was brought to the cardiac catheterization lab in the postabsorptive state where the right femoral triangle was prepped and draped in the usual fashion. 20 cc of lidocaine was infiltrated for local anesthesia. Using the modified Seldinger technique the right femoral vein was punctured and an 8 Slovak vascular sheath was placed. Through the sheath the Amplatz Super Stiff wire was placed through the IVC through the right atrium and into the superior superior vena cava. Over the Super Stiff wire the puncture site was dilated up to 22 Slovak. Following this the Micra dilator and sheath were advanced into the IVC up to the level of the right atrium. The Super Stiff wire and the dilator were removed. The sheath was hooked up to saline at a rapid flush. The Micra insertion device was then prepped on the table, de-aired and prepared for deployment. The insertion catheter was also hooked up to rapid flush saline. This was then advanced through the deployment sheath up to the right atrium. The sheath was then withdrawn to the inferior vena cava. The deployment sheath was then deflected through the tricuspid valve annulus into the right ventricle and positioned into the mid septal position. Pressure was placed on the catheter creating a gooseneck appearance and the pacemaker was deployed in this location. Impedance and R-wave sensing were very good but the threshold was unacceptably high. We observed this for several minutes without improvement and decided to reposition the device. I then recaptured the pacemaker into the deployment catheter and chose a septal position that was slightly higher. The device was then deployed in a similar fashion in this location. In this location the performance of the device was excellent. In this position a tug test was then done using the tethers to ensure that the tines were engaged into the septal wall. When this was confirmed the tether was cut and removed leaving the pacemaker deployed and free in in that position. Excellent pacing and sensing performance was demonstrated again. The deployment catheter was then withdrawn from the sheath. Lastly a [id number] suture was made with 0 Ethibond at the puncture site and the sheath was removed. The [id number] stitch was tied and manual pressure was held at the puncture site for 20 minutes. Following this the procedure was terminated and patient will be taken back to her room in the ICU for recovery. Procedure was well tolerated and uncomplicated. Findings:: The patient received a Medtronic Micra AV pacemaker model [id number] serial number [id number]. The R-waves are sensed at 9.0 mV threshold is 0.5 volts at 0.24 milliseconds pacing impedance 710 Ohms. Device is programmed in the VDD mode lower rate limit 60 upper rate limit 105. Conclusion:: 1. Successful uncomplicated implantation of Medtronic Micra AV leadless pacemaker system for treatment of symptomatic bradycardia with acquired high-grade AV block including complete heart block in this 74-year-old lady. Adithya Dominguez MD [facility]
--- NOTE | 2025-02-21 14:51 | PC.NURSE ---
Patient return to ICU 9 from cardiac Cath s/p permanent pacemaker placement
[2025-02-21] MEDS: SODIUM CHLORIDE 0.9% IV 1,000 ML 50 ML IV CONT (15:17)
--- NOTE | 2025-02-21 16:07 | ECG_ITS ---
Test Date: 2025-02-21 16:07:36 Measurements Intervals [place] Rate: 71 P: 0 ME: 0 QRS: 49 QRSD: 182 T: -79 QT: 505 QTc: 552 Interpretive Statements ELECTRONIC VENTRICULAR PACEMAKER ABNORMAL RHYTHM ECG Compared to ECG 02/19/2025 15:26:18 Sinus bradycardia no longer present Electronically Signed On 02-22-2025 11:02:08 CDT by Daniel Raines M.D.
[2025-02-21] MEDS: HYDROCORTISONE 1% 30 GM CREAM 1 APPLIC TOPICAL ×2 (16:53→20:40)
[2025-02-21] MEDS: oxyCODONE HCL (*CRX) 5 MG TAB IR PO (18:27)
[2025-02-21] MEDS: SENNA/DOCUSATE SODIUM TABLET 2 TAB PO (20:37)
[2025-02-21] MEDS: ATORVASTATIN 10 MG TABLET PO (20:38)
[2025-02-22] VITALS (16 sets, daily range): BP systolic 132–211; BP diastolic 48–87; PULSE 67–104; RESP 13–20; TEMP 36.4–37.3; O2SAT 91–100
[2025-02-22 03:23] LABS: Hematocrit 27.3 % (37.0-47.0); Hemoglobin 8.9 g/dL (12.0-15.0); Mean Corpuscular HGB Conc 32.6 g/dl (32-36); Mean Corpuscular Hemoglobin 28.3 pg (26-34); Mean Corpuscular Volume 86.7 fl (80-100); Platelet Count Result 205 k/mm3 (150-375); Red Blood Count 3.15 M/mm3 (4.2-5.4); White Blood Count 9.0 K/mm3 (4.5-10.0)
[2025-02-22 03:38] LABS: Alanine Aminotransferase 81 U/L (6-35); Albumin Level 3.1 g/dL (3.5-5.1); Alkaline Phosphatase 99 U/L (38-126); Anion Gap 5 mmol/L (4-12); Aspartate Amino Transferase 36 U/L (14-36); Bilirubin,Total 0.1 mg/dL (0.2-1.3); Blood Urea Nitrogen 22 mg/dL (7-17); Calcium 8.2 mg/dL (8.4-10.2); Carbon Dioxide 29 mmol/L (22-30); Chloride 94 mmol/L (98-107); Estimated CRCL calculation 42 ml/min; Estimated Glomerular Filt Rate 47; Glucose 114 mg/dL (65-110); Magnesium 1.8 mg/dL (1.6-2.3); Potassium 4.2 mmol/L (3.4-5.0); Sodium 128 mmol/L (137-145); Total Protein 5.7 g/dL (6.3-8.2)
[2025-02-22] MEDS: oxyCODONE HCL (*CRX) 5 MG TAB IR PO ×3 (04:03→20:01)
[2025-02-22] MEDS: ONDANSETRON HCL ODT 4 MG TABLET PO ×3 (06:30→20:03)
[2025-02-22] MEDS: SODIUM CHLORIDE 1 GM TABLET PO ×2 (09:30→16:59)
[2025-02-22] MEDS: TIZANIDINE HCL 2 MG TABLET PO ×2 (09:30→20:01)
[2025-02-22] MEDS: SPIRONOLACTONE 25 MG TABLET PO (09:30)
[2025-02-22] MEDS: FAMOTIDINE 10 MG TABLET PO (09:30)
[2025-02-22] MEDS: CEFDINIR 300 MG CAPSULE PO ×2 (09:30→20:00)
[2025-02-22] MEDS: MEMANTINE 5 MG TABLET PO ×2 (09:30→20:01)
[2025-02-22] MEDS: VENLAFAXINE HCL XR 37.5 MG CAP PO (09:30)
[2025-02-22] MEDS: FAMCICLOVIR 250 MG TABLET PO ×2 (09:31→20:02)
[2025-02-22] MEDS: ACETAMINOPHEN 325 MG TABLET 650 MG PO (09:31)
[2025-02-22] MEDS: clonazePAM (*CRX) 0.5 MG TABLET PO ×2 (09:31→20:03)
[2025-02-22] MEDS: FLUTICASONE PROPIONATE 0.05% NA SPR 16 GM BTL (*BKC) 1 SPRAY NASAL (09:33)
[2025-02-22] MEDS: ARTIFICIAL TEARS OPHTH SOLN 15 ML BOTTLE 2 DROP EACH EYE ×2 (09:33→20:00)
[2025-02-22] MEDS: SENNA/DOCUSATE SODIUM TABLET 2 TAB PO ×2 (09:37→20:00)
--- NOTE | 2025-02-22 09:54 | P.PNCA_ITS ---
Progress Note: A&P Assessment and Plan (1) Complete heart block: Code(s): I44.2 - Atrioventricular block, complete Status: Acute Assessment and Plan: Resolved (2) Bradycardia: Code(s): R00.1 - Bradycardia, unspecified Status: Acute Assessment and Plan: To is to 1 block with narrow QRS (3) Hypertension: Code(s): I10 - Essential (primary) hypertension Status: Acute Assessment and Plan: SBP in the 200s range this morning Plan Complete heart block, 2 is to 1 second-degree block status post permanent pacemaker placement with Dr. Vasquez on 02/21/2025 Allergy to latex Paroxysmal atrial fibrillation on chronic anticoagulation with Xarelto History CVA Hypertension-poorly controlled with SBP in the 200s secondary to holding her antihypertensive home meds Hyperlipidemia Obstructive sleep apnea intolerant to CPAP Chronic anemia Asthma Chronic respiratory failure with hypoxia on 2 L of home oxygen Chronic hyponatremia History of left BKA Plan: -Chest x-ray today -Check and replace electrolytes to keep potassium greater than 4 and magnesium greater than 2 -Continue home antihypertensive meds amlodipine, irbesartan, hydralazine, spironolactone. Resume home dose of Imdur as her blood pressure remains high -IV lasix 40 mg BID -Check daily weight, ins and outs, and renal function -Continue atorvastatin -Resume Xarelto tomorrow if ok with Dr. Dominguez Subjective Date/time seen: 02/22/25 09:54 Interval history: Reason for encounter: Complete heart block, second-degree 2 is to 1 heart block status post permanent pacemaker placement on 02/21/[address] Dominguez Interval history: No chest pain, shortness breath, dizziness, palpitations. Telemetry shows V paced rhythm. Review of Systems Cardiovascular: Comments: As per HPI Respiratory: Comments: As per HPI Exam Narrative: General: Alert oriented x3, no acute distress Neck: Supple, JVD + Chest: Bibasilar rales, no rhonchi Cardiac: S1, S2 +, regular rate, regular rhythm, no murmurs or rubs Extremities: Bilateral lower extremity edema 2+, no skin rash Neurologic: Alert and oriented x3, no focal neurological deficits Objective Data Vital Signs Vital Signs: Vital Signs - 24 hr 02/21/25 10:00 02/21/25 10:00 02/21/25 12:00 Temperature Pulse Rate 36 L 41 L 33 L Respiratory Rate 14 12 Blood Pressure 137/36 L 113/42 L Pulse Oximetry 97 97 Oxygen Delivery Oxygen Flow Rate 02/21/25 12:00 02/21/25 12:00 02/21/25 12:47 Temperature 36.5 C Pulse Rate 33 L 33 L Respiratory Rate 12 Blood Pressure Pulse Oximetry 97 Oxygen Delivery Nasal Cannula Oxygen Flow Rate 2 02/21/25 14:55 02/21/25 15:10 02/21/25 15:47 Temperature 36.6 C 36.6 C Pulse Rate 75 72 68 Respiratory Rate 15 13 11 L Blood Pressure 140/63 172/69 H 176/69 H Pulse Oximetry 93 98 96 Oxygen Delivery Oxygen Flow Rate 02/21/25 16:00 02/21/25 16:00 02/21/25 16:38 Temperature 36.6 C Pulse Rate 68 76 68 Respiratory Rate 11 L 15 12 Blood Pressure 171/70 H 173/84 H Pulse Oximetry 96 97 94 Oxygen Delivery Nasal Cannula Oxygen Flow Rate 2 02/21/25 16:51 02/21/25 18:00 02/21/25 20:00 Temperature 36.8 C Pulse Rate 76 83 85 Respiratory Rate 14 14 Blood Pressure 177/77 H 157/100 H Pulse Oximetry 95 94 Oxygen Delivery Oxygen Flow Rate 02/21/25 20:00 02/21/25 20:00 02/21/25 20:00 Temperature Pulse Rate 76 93 Respiratory Rate 15 Blood Pressure 171/70 H Pulse Oximetry 97 96 Oxygen Delivery Nasal Cannula Oxygen Flow Rate 2 02/21/25 20:45 02/21/25 22:00 02/22/25 00:00 Temperature 37.3 C Pulse Rate 98 81 Respiratory Rate 14 Blood Pressure 132/62 Pulse Oximetry 96 97 Oxygen Delivery Nasal Cannula Oxygen Flow Rate 2 02/22/25 00:00 02/22/25 00:00 02/22/25 00:00 Temperature 37.3 C Pulse Rate 81 78 Respiratory Rate 14 Blood Pressure 132/62 Pulse Oximetry 97 97 Oxygen Delivery Nasal Cannula Oxygen Flow Rate 2 02/22/25 02:00 02/22/25 04:00 02/22/25 04:00 Temperature 36.6 C 37.3 C Pulse Rate 67 78 81 Respiratory Rate 14 14 Blood Pressure 186/72 H 132/62 Pulse Oximetry 100 97 Oxygen Delivery Oxygen Flow Rate 02/22/25 04:00 02/22/25 04:00 02/22/25 06:00 Temperature Pulse Rate 81 73 Respiratory Rate Blood Pressure Pulse Oximetry 100 Oxygen Delivery Nasal Cannula Oxygen Flow Rate 2 02/22/25 08:00 02/22/25 08:00 02/22/25 08:00 Temperature 36.8 C 36.8 C Pulse Rate 76 76 76 Respiratory Rate 13 13 13 Blood Pressure 159/68 H 159/68 H Pulse Oximetry 99 99 99 Oxygen Delivery Nasal Cannula Oxygen Flow Rate 2 Intake/Output Intake/Output: Intake & Output 02/19/25 02/20/25 02/21/25 02/22/25 23:59 23:59 23:59 23:59 Intake Total 50 1020 780 390 Output Total 1900 900 700 Balance 50 -880 -120 -310 Meds/Results Medications: Active Medications Generic Name Dose Route Start Last Admin Trade Name Freq PRN Reason Stop Dose Admin Acetaminophen 650 mg 02/19/25 17:18 02/22/25 09:31 Acetaminophen 325 Mg Tablet PO 650 mg Q6H PRN Administration Mild Pain (1-3) or Fever Albuterol/Ipratropium 3 ml 02/20/25 00:27 Ipratropium 0.5 Mg/Albuterol Sulfate 2.5 Mg Ampul.Neb 3 Ml INHALATION Q6HRT PRN Wheezing Amlodipine Besylate 10 mg 02/20/25 09:00 02/22/25 09:31 Amlodipine Besylate 10 Mg Tablet PO 10 mg DAILY KELIN Administration Artificial Tears 2 drop 02/20/25 09:00 02/22/25 09:33 Artificial Tears Ophth Soln 15 Ml Bottle EACH EYE 2 drop Q12HR KELIN Administration Atorvastatin Calcium 10 mg 02/20/25 21:00 02/21/25 20:38 Atorvastatin 10 Mg Tablet PO 10 mg HS KELIN Administration Bisacodyl 10 mg 02/20/25 00:05 Bisacodyl 5 Mg Tablet Ec PO HS PRN Constipation Buspirone HCl 10 mg 02/20/25 09:00 02/22/25 09:30 Buspirone Hcl 10 Mg Tablet PO 10 mg Q12HR KELIN Administration Cefdinir 300 mg 02/20/25 09:00 02/22/25 09:30 Cefdinir 300 Mg Capsule PO 02/26/25 21:01 300 mg Q12HR KELIN Administration Clonazepam 0.5 mg 02/20/25 09:00 02/22/25 09:31 Clonazepam (*Crx) 0.5 Mg Tablet PO 0.5 mg Q12HR KELIN Administration Famciclovir 250 mg 02/20/25 09:00 02/22/25 09:31 Famciclovir 250 Mg Tablet PO 250 mg Q12HR KELIN Administration Famotidine 10 mg 02/20/25 09:00 02/22/25 09:30 Famotidine 10 Mg Tablet PO 10 mg DAILY KELIN Administration Fluticasone Propionate 1 spray 02/20/25 09:00 02/22/25 09:33 Fluticasone Propionate 0.05% Na Spr 16 Gm Btl (*Bkc) NASAL 1 spray DAILY KELIN Administration Furosemide 40 mg 02/20/25 07:40 02/22/25 09:29 Furosemide Inj 40 Mg/4 Ml Vial IV PUSH Not Given BID KELIN Hydralazine HCl 50 mg 02/20/25 06:00 02/21/25 05:28 Hydralazine Hcl 50 Mg Tablet PO Not Given Q8HR [facility] Hydralazine HCl 20 mg 02/20/25 07:43 02/20/25 18:46 Hydralazine Hcl 20 Mg/Ml Vial IV PUSH 20 mg Q4H PRN Administration SBP more than 160 Hydrocortisone 1 applic 02/21/25 16:20 02/21/25 20:40 Hydrocortisone 1% 30 Gm Cream TOPICAL 1 applic TID PRN Administration Itching Irbesartan 300 mg 02/20/25 09:00 02/21/25 09:44 Irbesartan 150 Mg Tablet PO 300 mg QAM [facility] Administration Lactulose 30 gm 02/20/25 11:15 Lactulose 20 Gm/30 Ml Udc PO Q12HR PRN Constipation Magnesium Citrate 300 ml 02/20/25 00:27 Magnesium Citrate 300 Ml Btl PO DAILY PRN constipation Magnesium Hydroxide 30 ml 02/20/25 00:27 Magnesium Hydroxide Susp 30 Ml Udc PO DAILY PRN constipation Memantine 5 mg 02/20/25 09:00 02/22/25 09:30 Memantine 5 Mg Tablet PO 5 mg Q12HR KELIN Administration Ondansetron HCl 4 mg 02/20/25 06:00 02/22/25 06:30 Ondansetron Hcl Odt 4 Mg Tablet PO 4 mg Q8HR [facility] Administration Oxycodone HCl 5 mg 02/20/25 20:30 02/22/25 04:03 Oxycodone Hcl (*Crx) 5 Mg Tab Ir PO 5 mg Q8HR PRN Administration Pain Rated 7-10 Polyethylene Glycol 17 gm 02/20/25 11:15 Polyethylene Glycol 3350 17 Gm Powd.Pack PO DAILY PRN Constipation Senna/Docusate Sodium 2 tab 02/20/25 09:00 02/22/25 09:37 Senna/Docusate Sodium Tablet PO 2 tab Q12HR KELIN Administration Sodium Chloride 1 gm 02/20/25 09:00 02/22/25 09:30 Sodium Chloride 1 Gm Tablet PO 1 gm BID KELIN Administration Spironolactone 25 mg 02/20/25 09:00 02/22/25 09:30 Spironolactone 25 Mg Tablet PO 25 mg DAILY KELIN Administration Tizanidine HCl 2 mg 02/20/25 09:00 02/22/25 09:30 Tizanidine Hcl 2 Mg Tablet PO 2 mg Q12HR KELIN Administration Venlafaxine HCl 37.5 mg 02/20/25 09:00 02/22/25 09:30 Venlafaxine Hcl Xr 37.5 Mg Cap PO 37.5 mg DAILY KELIN Administration Radiology Results: ITS Impressions Chest X-Ray 02/19/25 13:57 IMPRESSION: Significant peribronchial thickening with mild pulmonary vascular congestion and a left-sided pleural effusion. Labs Labs: Laboratory Results - last 24 hr 02/22/25 03:19 WBC 9.0 RBC 3.15 L Hgb 8.9 L Hct 27.3 L MCV 86.7 MCH 28.3 MCHC 32.6 RDW 16.9 H Plt Count 205 MPV 10.5 H Sodium 128 L Potassium 4.2 Chloride 94 L Carbon Dioxide 29 Anion Gap 5 BUN 22 H Creatinine 1.13 H Estim Creat Clear Calc 42 Estimated GFR 47 L Glucose 114 H Calcium 8.2 L Magnesium 1.8 Total Bilirubin 0.1 L AST 36 ALT 81 H Alkaline Phosphatase 99 Total Protein 5.7 L Albumin 3.1 L
[2025-02-22] MEDS: HYDROCORTISONE 1% 30 GM CREAM 1 APPLIC TOPICAL ×2 (10:32→20:13)
[2025-02-22] MEDS: IRBESARTAN 150 MG TABLET 300 MG PO (10:42)
--- NOTE | 2025-02-22 11:56 | PM.IMPN ---
Progress Note: A&P Assessment and Plan (1) Complete heart block: Code(s): I44.2 - Atrioventricular block, complete Status: Acute Assessment and Plan: Patient presented with complete heart block. She was on a Toprol XL 300mg daily which was stopped. Echo in Jul 2024 showing EF 60-65%, grade I diastolic dysfunction and moderate [place] Cardiology consulted. Patient remained bradycardic with 2:1 block so PM recommended which she had placed 02/21. She tolerated the procedure well. Continue telemetry and hemodynamic monitoring (2) Hypertension: Code(s): I10 - Essential (primary) hypertension Status: Acute Assessment and Plan: Patient's blood pressure was reviewed on 02/22 She was resumed on Norvasc, Spironolactone, Avapro. Hydralazine IV available p.r.n. Patient also had clonidine patch which was stopped Blood pressure remains reasonable. Add back Imdur. Monitor and adjust accordingly (3) Atrial fibrillation with RVR: Code(s): I48.91 - Unspecified atrial fibrillation Status: Acute Assessment and Plan: History of AFib with RVR. Anticoagulation on hold for procedure Resume Xarelto when okay with Cardiology (4) Hyponatremia: Code(s): E87.1 - Hypo-osmolality and hyponatremia Status: Acute Assessment and Plan: Patient with chronic hyponatremia. Na 124 on admission and dropped to 120 Nephrology consulted and appreciate their input. Sodium chloride oral tabs and fluid restriction ordered. Lasix IV also started Sodium 128 today Monitor BMP. Decrease Lasix given the slight bump in Cr. (5) Congestive heart failure: Code(s): I50.9 - Heart failure, unspecified Status: Acute Assessment and Plan: Echo as above. CXR on admission showing significant peribronchial thickening with mild pulmonary vascular congestion and a left pleural effusion. BNP 2980. Lasix IV started. Negative fluid balance. Continue IV Lasix but decrease to daily (6) UTI (urinary tract infection): Qualifiers: Hematuria presence: without hematuria Urinary tract infection type: acute cystitis Qualified Code(s): N30.00 - Acute cystitis without hematuria Code(s): N39.0 - Urinary tract infection, site not specified Status: Resolved Assessment and Plan: Recently diagnosed UTI. Afebrile and WBC normal. Continue cefdinir to complete a course. Plan Chronic Resp Failure - on O2 at 2L chronically. She is at baseline. DVT prophylaxis -SCD. Anticoagulation on hold Code status - change back to DNR per patient's wishes. Subjective Date/time seen: 02/22/25 11:56 Interval history: 74yo female with HTN, chronic respiratory failure on supplemental O2 (2L NC), CVA, bipolar disorder, anxiety, failure to thrive, GERD, hyperlipidemia, hypertension, chronic hyponatremia, asthma, epilepsy not currently treated with antiepileptic medications and previous left AKA presents here with weakness, lethargy and shortness of breath. Found to have complete heart block, second-degree 2 is to 1 heart block status post permanent pacemaker placement on 02/21/[address] Dominguez. Assuming care. Chart reviewed. Patient slept off and on overnight. She denies chest pain or shortness of breath. She has chronic nausea from gastroparesis and is on schedule Zofran that she has been taking for the past 5 years. Exam Narrative: AF 98.3 159/68 95 13 99% 2L Gen - NARD Chest -few bibasilar inspiratory crackles otherwise clear. CV - RRR S1/S2. Telemetry showing paced rhythm. Abd - Soft, obese, nontender Ext -1+ right pedal edema with left AKA. Neuro - Alert and appropriate Psych - Nml mood and affect Skin - Warm and dry Objective Data Vital Signs Vital Signs: Vital Signs - 24 hr 02/21/25 12:00 02/21/25 12:00 02/21/25 12:00 Temperature Pulse Rate 33 L 33 L 33 L Respiratory Rate 12 12 Blood Pressure 113/42 L Pulse Oximetry 97 97 Oxygen Delivery Nasal Cannula Oxygen Flow Rate 2 02/21/25 12:47 02/21/25 14:55 02/21/25 15:10 Temperature 97.7 F 97.9 F 97.8 F Pulse Rate 75 72 Respiratory Rate 15 13 Blood Pressure 140/63 172/69 H Pulse Oximetry 93 98 Oxygen Delivery Oxygen Flow Rate 02/21/25 15:47 02/21/25 16:00 02/21/25 16:00 Temperature Pulse Rate 68 68 76 Respiratory Rate 11 L 11 L 15 Blood Pressure 176/69 H 171/70 H Pulse Oximetry 96 96 97 Oxygen Delivery Nasal Cannula Oxygen Flow Rate 2 02/21/25 16:38 02/21/25 16:51 02/21/25 18:00 Temperature 97.8 F Pulse Rate 68 76 83 Respiratory Rate 12 14 Blood Pressure 173/84 H 177/77 H Pulse Oximetry 94 95 Oxygen Delivery Oxygen Flow Rate 02/21/25 20:00 02/21/25 20:00 02/21/25 20:00 Temperature 98.2 F Pulse Rate 85 76 Respiratory Rate 14 15 Blood Pressure 157/100 H 171/70 H Pulse Oximetry 94 97 96 Oxygen Delivery Nasal Cannula Oxygen Flow Rate 2 02/21/25 20:00 02/21/25 20:45 02/21/25 22:00 Temperature Pulse Rate 93 98 Respiratory Rate Blood Pressure Pulse Oximetry 96 Oxygen Delivery Nasal Cannula Oxygen Flow Rate 2 02/22/25 00:00 02/22/25 00:00 02/22/25 00:00 Temperature 99.1 F 99.1 F Pulse Rate 81 81 Respiratory Rate 14 14 Blood Pressure 132/62 132/62 Pulse Oximetry 97 97 97 Oxygen Delivery Nasal Cannula Oxygen Flow Rate 2 02/22/25 00:00 02/22/25 02:00 02/22/25 04:00 Temperature 97.9 F Pulse Rate 78 67 78 Respiratory Rate 14 Blood Pressure 186/72 H Pulse Oximetry 100 Oxygen Delivery Oxygen Flow Rate 02/22/25 04:00 02/22/25 04:00 02/22/25 04:00 Temperature 99.1 F Pulse Rate 81 81 Respiratory Rate 14 Blood Pressure 132/62 Pulse Oximetry 97 100 Oxygen Delivery Nasal Cannula Oxygen Flow Rate 2 02/22/25 06:00 02/22/25 08:00 02/22/25 08:00 Temperature 98.3 F Pulse Rate 73 76 76 Respiratory Rate 13 13 Blood Pressure 159/68 H Pulse Oximetry 99 99 Oxygen Delivery Nasal Cannula Oxygen Flow Rate 2 02/22/25 08:00 02/22/25 08:00 02/22/25 10:00 Temperature 98.3 F Pulse Rate 76 74 95 Respiratory Rate 13 Blood Pressure 159/68 H Pulse Oximetry 99 Oxygen Delivery Oxygen Flow Rate Intake/Output Intake/Output: Intake & Output 02/19/25 02/20/25 02/21/25 02/22/25 23:59 23:59 23:59 23:59 Intake Total 50 1020 780 630 Output Total 1900 900 700 Balance 50 -880 -120 -70 Meds/Results Medications: Active Medications Generic Name Dose Route Start Last Admin Trade Name Freq PRN Reason Stop Dose Admin Acetaminophen 650 mg 02/19/25 17:18 02/22/25 09:31 Acetaminophen 325 Mg Tablet PO 650 mg Q6H PRN Administration Mild Pain (1-3) or Fever Albuterol/Ipratropium 3 ml 02/20/25 00:27 Ipratropium 0.5 Mg/Albuterol Sulfate 2.5 Mg Ampul.Neb 3 Ml INHALATION Q6HRT PRN Wheezing Amlodipine Besylate 10 mg 02/20/25 09:00 02/22/25 09:31 Amlodipine Besylate 10 Mg Tablet PO 10 mg DAILY KELIN Administration Artificial Tears 2 drop 02/20/25 09:00 02/22/25 09:33 Artificial Tears Ophth Soln 15 Ml Bottle EACH EYE 2 drop Q12HR KELIN Administration Atorvastatin Calcium 10 mg 02/20/25 21:00 02/21/25 20:38 Atorvastatin 10 Mg Tablet PO 10 mg HS KELIN Administration Bisacodyl 10 mg 02/20/25 00:05 Bisacodyl 5 Mg Tablet Ec PO HS PRN Constipation Buspirone HCl 10 mg 02/20/25 09:00 02/22/25 09:30 Buspirone Hcl 10 Mg Tablet PO 10 mg Q12HR KELIN Administration Cefdinir 300 mg 02/20/25 09:00 02/22/25 09:30 Cefdinir 300 Mg Capsule PO 02/26/25 21:01 300 mg Q12HR KELIN Administration Clonazepam 0.5 mg 02/20/25 09:00 02/22/25 09:31 Clonazepam (*Crx) 0.5 Mg Tablet PO 0.5 mg Q12HR KELIN Administration Famciclovir 250 mg 02/20/25 09:00 02/22/25 09:31 Famciclovir 250 Mg Tablet PO 250 mg Q12HR KELIN Administration Famotidine 10 mg 02/20/25 09:00 02/22/25 09:30 Famotidine 10 Mg Tablet PO 10 mg DAILY KELIN Administration Fluticasone Propionate 1 spray 02/20/25 09:00 02/22/25 09:33 Fluticasone Propionate 0.05% Na Spr 16 Gm Btl (*Bkc) NASAL 1 spray DAILY KELIN Administration Furosemide 40 mg 02/20/25 07:40 02/22/25 09:29 Furosemide Inj 40 Mg/4 Ml Vial IV PUSH Not Given BID KELIN Hydralazine HCl 50 mg 02/20/25 06:00 02/21/25 05:28 Hydralazine Hcl 50 Mg Tablet PO Not Given Q8HR KELIN Hydralazine HCl 20 mg 02/20/25 07:43 02/20/25 18:46 Hydralazine Hcl 20 Mg/Ml Vial IV PUSH 20 mg Q4H PRN Administration SBP more than 160 Hydrocortisone 1 applic 02/21/25 16:20 02/22/25 10:32 Hydrocortisone 1% 30 Gm Cream TOPICAL 1 applic TID PRN Administration Itching Irbesartan 300 mg 02/20/25 09:00 02/22/25 10:42 Irbesartan 150 Mg Tablet PO 300 mg QAM KELIN Administration Lactulose 30 gm 02/20/25 11:15 Lactulose 20 Gm/30 Ml Udc PO Q12HR PRN Constipation Magnesium Citrate 300 ml 02/20/25 00:27 Magnesium Citrate 300 Ml Btl PO DAILY PRN constipation Magnesium Hydroxide 30 ml 02/20/25 00:27 Magnesium Hydroxide Susp 30 Ml Udc PO DAILY PRN constipation Memantine 5 mg 02/20/25 09:00 02/22/25 09:30 Memantine 5 Mg Tablet PO 5 mg Q12HR KELIN Administration Ondansetron HCl 4 mg 02/20/25 06:00 02/22/25 06:30 Ondansetron Hcl Odt 4 Mg Tablet PO 4 mg Q8HR KELIN Administration Oxycodone HCl 5 mg 02/20/25 20:30 02/22/25 04:03 Oxycodone Hcl (*Crx) 5 Mg Tab Ir PO 5 mg Q8HR PRN Administration Pain Rated 7-10 Polyethylene Glycol 17 gm 02/20/25 11:15 Polyethylene Glycol 3350 17 Gm Powd.Pack PO DAILY PRN Constipation Senna/Docusate Sodium 2 tab 02/20/25 09:00 02/22/25 09:37 Senna/Docusate Sodium Tablet PO 2 tab Q12HR KELIN Administration Sodium Chloride 1 gm 02/20/25 09:00 02/22/25 09:30 Sodium Chloride 1 Gm Tablet PO 1 gm BID KELIN Administration Spironolactone 25 mg 02/20/25 09:00 02/22/25 09:30 Spironolactone 25 Mg Tablet PO 25 mg DAILY KELIN Administration Tizanidine HCl 2 mg 02/20/25 09:00 02/22/25 09:30 Tizanidine Hcl 2 Mg Tablet PO 2 mg Q12HR KELIN Administration Venlafaxine HCl 37.5 mg 02/20/25 09:00 02/22/25 09:30 Venlafaxine Hcl Xr 37.5 Mg Cap PO 37.5 mg DAILY KELIN Administration Radiology Results: ITS Impressions Chest X-Ray 02/19/25 13:57 IMPRESSION: Significant peribronchial thickening with mild pulmonary vascular congestion and a left-sided pleural effusion. Labs Labs: Laboratory Results - last 24 hr 02/22/25 03:19 WBC 9.0 RBC 3.15 L Hgb 8.9 L Hct 27.3 L MCV 86.7 MCH 28.3 MCHC 32.6 RDW 16.9 H Plt Count 205 MPV 10.5 H Sodium 128 L Potassium 4.2 Chloride 94 L Carbon Dioxide 29 Anion Gap 5 BUN 22 H Creatinine 1.13 H Estim Creat Clear Calc 42 Estimated GFR 47 L Glucose 114 H Calcium 8.2 L Magnesium 1.8 Total Bilirubin 0.1 L AST 36 ALT 81 H Alkaline Phosphatase 99 Total Protein 5.7 L Albumin 3.1 L
[2025-02-22] MEDS: ISOSORBIDE MONONITRATE 30 MG TAB.ER.24H PO (12:17)
[2025-02-22] MEDS: MAGNESIUM SULF 1 GM/D5W 100 ML 1 GM/100 ML BAG IVPB (12:18)
--- NOTE | 2025-02-22 13:18 | P.PNNP_ITS ---
Progress Note: A&P Assessment and Plan (1) Hyponatremia: Code(s): E87.1 - Hypo-osmolality and hyponatremia Status: Acute Assessment and Plan: * improvement noted * acute on chronic issue * baseline sodium runs high 120s to low 130s * multifactorial issue: * medications (buspirone, clonzepam, venlafaxine...etc) * history of CVAs * mild volume overload * excess free water intake * reactive airway disease (?) * bradycardia (?) * continue fluid restriction and salt tablets * on IV lasix as well -- transition to oral once fluid status better * follow trend of repeat sodium levels (2) Bradycardia: Code(s): R00.1 - Bradycardia, unspecified Status: Acute Assessment and Plan: * as noted currently * complete heart block noted in ER * was on metoprolol * remains hemodynamically stable * Cardiology following * s/p permanent pacemaker on 02/21 * follow telemetry (3) Congestive heart failure: Code(s): I50.9 - Heart failure, unspecified Status: Acute Assessment and Plan: * Echo (July 2024) noted: * left ventricular systolic function is normal, estimated at 60-65% * left ventricular diastolic function is grade I diastolic dysfunction * moderate aortic valve regurgitation * mild mitral valve regurgitation * mild tricuspid valve regurgitation. * given CXR findings on IV diuretics * follow daily weights, I/Os, and respiratory status * continue supportive therapy (4) Hypertension: Code(s): I10 - Essential (primary) hypertension Status: Acute Assessment and Plan: * erratic as noted * resumed on oral meds of amlodipine/irbesartan/hydralazine * PRN IV hydralazine * follow trend of hemodynamics (5) UTI (urinary tract infection): Qualifiers: Hematuria presence: without hematuria Urinary tract infection type: a cute cystitis Qualified Code(s): N30.00 - Acute cystitis without hematuria Code(s): N39.0 - Urinary tract infection, site not specified Status: Resolved Assessment and Plan: * as noted on previous hospitalization * on antibiotics (6) Anemia: Qualifiers: Anemia type: unspecified type Qualified Code(s): D64.9 - Anemia, unspecified Code(s): D64.9 - Anemia, unspecified Status: Chronic Assessment and Plan: * probably due to acute illness and recent hospitalizations * follow trend of H/H Will continue to follow. L Subjective Date/time seen: 02/22/25 13:18 Interval history: Follow-up for acute on chronic hyponatremia. Status post permanent pacemaker placement yesterday and tolerated procedure without any issue or problems; no apparent distress voiced when seen other difficulty sleeping at night; sodium continues to improve/stabilize with current interventions. Exam 2 Narrative: General: elderly but WD/WN female in NAD Heart: bradycardic, normal S1 and S2; no rub Lungs: few bibasilar crackles Abdomen: soft, nontender, nondistended, positive bowel sounds Extremities: no cyanosis or clubbing; 1+ edema; s/p left BKA Skin: warm and intact Objective Data Vital Signs Vital Signs: Vital Signs Temp Pulse Resp BP Pulse Ox O2 Del Method O2 Flow Rate 02/22/25 12:00 97.6 F 84 14 138/48 L 98 02/22/25 12:00 97.6 F 84 14 138/48 L 98 02/22/25 12:00 82 13 98 Nasal Cannula 2 02/22/25 10:00 95 02/22/25 08:00 74 02/22/25 08:00 98.3 F 76 13 159/68 H 99 02/22/25 08:00 76 13 99 Nasal Cannula 2 02/22/25 08:00 98.3 F 76 13 159/68 H 99 02/22/25 06:00 73 02/22/25 04:00 81 02/22/25 04:00 100 Nasal Cannula 2 02/22/25 04:00 99.1 F 81 14 132/62 97 02/22/25 04:00 97.9 F 78 14 186/72 H 100 02/22/25 02:00 67 02/22/25 00:00 78 02/22/25 00:00 97 Nasal Cannula 2 02/22/25 00:00 99.1 F 81 14 132/62 97 02/22/25 00:00 99.1 F 81 14 132/62 97 02/21/25 22:00 98 02/21/25 20:45 96 Nasal Cannula 2 02/21/25 20:00 93 02/21/25 20:00 96 Nasal Cannula 2 02/21/25 20:00 76 15 171/70 H 97 02/21/25 20:00 98.2 F 85 14 157/100 H 94 02/21/25 18:00 83 02/21/25 16:51 76 14 177/77 H 95 Intake/Output Intake/Output: Intake & Output 02/19/25 02/20/25 02/21/25 02/22/25 23:59 23:59 23:59 23:59 Intake Total 50 1020 780 970 Output Total 1900 900 700 Balance 50 880 -120 270 Meds/Results Medications: Active Medications Generic Name Dose Route Start Last Admin Trade Name Freq PRN Reason Stop Dose Admin Acetaminophen 650 mg 02/19/25 17:18 02/22/25 09:31 Acetaminophen 325 Mg Tablet PO 650 mg Q6H PRN Administration Mild Pain (1-3) or Fever Albuterol/Ipratropium 3 ml 02/20/25 00:27 Ipratropium 0.5 Mg/Albuterol Sulfate 2.5 Mg Ampul.Neb 3 Ml INHALATION Q6HRT PRN Wheezing Amlodipine Besylate 10 mg 02/20/25 09:00 02/22/25 09:31 Amlodipine Besylate 10 Mg Tablet PO 10 mg DAILY KELIN Administration Artificial Tears 2 drop 02/20/25 09:00 02/22/25 09:33 Artificial Tears Ophth Soln 15 Ml Bottle EACH EYE 2 drop Q12HR KELIN Administration Atorvastatin Calcium 10 mg 02/20/25 21:00 02/21/25 20:38 Atorvastatin 10 Mg Tablet PO 10 mg HS KELIN Administration Bisacodyl 10 mg 02/20/25 00:05 Bisacodyl 5 Mg Tablet Ec PO HS PRN Constipation Buspirone HCl 10 mg 02/20/25 09:00 02/22/25 09:30 Buspirone Hcl 10 Mg Tablet PO 10 mg Q12HR KELIN Administration Cefdinir 300 mg 02/20/25 09:00 02/22/25 09:30 Cefdinir 300 Mg Capsule PO 02/26/25 21:01 300 mg Q12HR KELIN Administration Clonazepam 0.5 mg 02/20/25 09:00 02/22/25 09:31 Clonazepam (*Crx) 0.5 Mg Tablet PO 0.5 mg Q12HR KELIN Administration Famciclovir 250 mg 02/20/25 09:00 02/22/25 09:31 Famciclovir 250 Mg Tablet PO 250 mg Q12HR KELIN Administration Famotidine 10 mg 02/20/25 09:00 02/22/25 09:30 Famotidine 10 Mg Tablet PO 10 mg DAILY KELIN Administration Fluticasone Propionate 1 spray 02/20/25 09:00 02/22/25 09:33 Fluticasone Propionate 0.05% Na Spr 16 Gm Btl (*Bkc) NASAL 1 spray DAILY KELIN Administration Furosemide 40 mg 02/22/25 12:45 02/22/25 13:20 Furosemide Inj 40 Mg/4 Ml Vial IV PUSH 40 mg DAILY KELIN Administration Hydralazine HCl 50 mg 02/20/25 06:00 02/21/25 05:28 Hydralazine Hcl 50 Mg Tablet PO Not Given Q8HR [facility] Hydralazine HCl 20 mg 02/20/25 07:43 02/20/25 18:46 Hydralazine Hcl 20 Mg/Ml Vial IV PUSH 20 mg Q4H PRN Administration SBP more than 160 Hydrocortisone 1 applic 02/21/25 16:20 02/22/25 10:32 Hydrocortisone 1% 30 Gm Cream TOPICAL 1 applic TID PRN Administration Itching Irbesartan 300 mg 02/20/25 09:00 02/22/25 10:42 Irbesartan 150 Mg Tablet PO 300 mg QAM [facility] Administration Isosorbide Mononitrate 30 mg 02/22/25 12:10 02/22/25 12:17 Isosorbide Mononitrate 30 Mg Tab.Er.24h PO 30 mg DAILY KELIN Administration Lactulose 30 gm 02/20/25 11:15 Lactulose 20 Gm/30 Ml Udc PO Q12HR PRN Constipation Magnesium Citrate 300 ml 02/20/25 00:27 Magnesium Citrate 300 Ml Btl PO DAILY PRN constipation Magnesium Hydroxide 30 ml 02/20/25 00:27 Magnesium Hydroxide Susp 30 Ml Udc PO DAILY PRN constipation Memantine 5 mg 02/20/25 09:00 02/22/25 09:30 Memantine 5 Mg Tablet PO 5 mg Q12HR KELIN Administration Ondansetron HCl 4 mg 02/20/25 06:00 02/22/25 15:07 Ondansetron Hcl Odt 4 Mg Tablet PO 4 mg Q8HR KELIN Administration Oxycodone HCl 5 mg 02/20/25 20:30 02/22/25 12:17 Oxycodone Hcl (*Crx) 5 Mg Tab Ir PO 5 mg Q8HR PRN Administration Pain Rated 7-10 Polyethylene Glycol 17 gm 02/20/25 11:15 Polyethylene Glycol 3350 17 Gm Powd.Pack PO DAILY PRN Constipation Polyethylene Glycol 17 gm 02/22/25 12:05 02/22/25 12:18 Polyethylene Glycol 3350 17 Gm Powd.Pack PO 17 gm QAM KELIN Administration Pregabalin 150 mg 02/22/25 17:00 Pregabalin (*Crx) 75 Mg Capsule PO BID KELIN Senna/Docusate Sodium 2 tab 02/20/25 09:00 02/22/25 09:37 Senna/Docusate Sodium Tablet PO 2 tab Q12HR KELIN Administration Sodium Chloride 1 gm 02/20/25 09:00 02/22/25 09:30 Sodium Chloride 1 Gm Tablet PO 1 gm BID KELIN Administration Spironolactone 25 mg 02/20/25 09:00 02/22/25 09:30 Spironolactone 25 Mg Tablet PO 25 mg DAILY KELIN Administration Tizanidine HCl 2 mg 02/20/25 09:00 02/22/25 09:30 Tizanidine Hcl 2 Mg Tablet PO 2 mg Q12HR KELIN Administration Venlafaxine HCl 37.5 mg 02/20/25 09:00 02/22/25 09:30 Venlafaxine Hcl Xr 37.5 Mg Cap PO 37.5 mg DAILY KELIN Administration Radiology Results: ITS Impressions Chest X-Ray 02/22/25 14:51 Impression: 1: Bilateral perihilar infiltrates which may represent edema or pneumonia. Labs Labs: Laboratory Tests 02/22/25 03:19 02/22/25 03:19 Calcium 8.2 L Magnesium 1.8 Total Bilirubin 0.1 L AST 36 ALT 81 H Alkaline Phosphatase 99 Total Protein 5.7 L Albumin 3.1 L
[2025-02-22] MEDS: FUROSEMIDE INJ 40 MG/4 ML VIAL IV PUSH (13:20)
[2025-02-22] MEDS: PREGABALIN (*CRX) 75 MG CAPSULE 150 MG PO (16:59)
--- NOTE | 2025-02-22 17:16 | P.PNCROSS_ITS ---
Event Note Event Note Event Note: Figure of 8 suture in the right groin removed under sterile precautions. Pressu re dressing applied. Patient tolerated the procedure well. Site looks clean without any swelling, erythema, tenderness, or bleeding. Will recheck in am tomorrow.
[2025-02-22] MEDS: ATORVASTATIN 10 MG TABLET PO (20:03)
--- NOTE | 2025-02-22 20:30 | PC.NURSE ---
Patient refusing to turn from side to side. Placed turn assist on bed and patient requested it be off in the first 3 min. Discussed risk to skin and development of bedsore; pt still requests to stay on back.
--- NOTE | 2025-02-22 21:38 | PC.NURSE ---
Pt requesting Benadryl due to itchiness, hydrocortisone cream administered topically not helping. Order for one time 25mg Benadryl PO received.
[2025-02-22] MEDS: diphenhydrAMINE HCl CAP 25 MG CAPSULE PO (21:51)
[2025-02-23] VITALS (22 sets, daily range): BP systolic 89–197; BP diastolic 44–86; PULSE 57–106; RESP 16–18; TEMP 36.8–37.6; O2SAT 92–98
[2025-02-23] MEDS: oxyCODONE HCL (*CRX) 5 MG TAB IR PO ×2 (04:10→17:55)
[2025-02-23] MEDS: ONDANSETRON HCL ODT 4 MG TABLET PO ×3 (06:06→21:29)
[2025-02-23 06:30] LABS: Hematocrit 30.6 % (37.0-47.0); Hemoglobin 9.5 g/dL (12.0-15.0); Mean Corpuscular HGB Conc 31.0 g/dl (32-36); Mean Corpuscular Hemoglobin 27.9 pg (26-34); Mean Corpuscular Volume 90.0 fl (80-100); Platelet Count Result 280 k/mm3 (150-375); Red Blood Count 3.40 M/mm3 (4.2-5.4); White Blood Count 12.2 K/mm3 (4.5-10.0)
[2025-02-23 07:00] LABS: Alanine Aminotransferase 49 U/L (6-35); Albumin Level 3.2 g/dL (3.5-5.1); Alkaline Phosphatase 105 U/L (38-126); Anion Gap 5 mmol/L (4-12); Aspartate Amino Transferase 26 U/L (14-36); Bilirubin,Total 0.1 mg/dL (0.2-1.3); Blood Urea Nitrogen 19 mg/dL (7-17); Calcium 8.4 mg/dL (8.4-10.2); Carbon Dioxide 30 mmol/L (22-30); Chloride 97 mmol/L (98-107); Estimated CRCL calculation 45 ml/min; Estimated Glomerular Filt Rate 50; Glucose 109 mg/dL (65-110); Magnesium 1.9 mg/dL (1.6-2.3); Potassium 4.1 mmol/L (3.4-5.0); Sodium 132 mmol/L (137-145); Total Protein 6.1 g/dL (6.3-8.2)
[2025-02-23] MEDS: ARTIFICIAL TEARS OPHTH SOLN 15 ML BOTTLE 2 DROP EACH EYE ×2 (09:00→21:27)
[2025-02-23] MEDS: MAGNESIUM HYDROXIDE SUSP 30 ML UDC PO (09:00)
[2025-02-23] MEDS: SENNA/DOCUSATE SODIUM TABLET 2 TAB PO ×2 (09:01→21:28)
[2025-02-23] MEDS: FLUTICASONE PROPIONATE 0.05% NA SPR 16 GM BTL (*BKC) 1 SPRAY NASAL (09:01)
[2025-02-23] MEDS: clonazePAM (*CRX) 0.5 MG TABLET PO ×2 (09:02→21:28)
[2025-02-23] MEDS: FAMOTIDINE 10 MG TABLET PO (09:02)
[2025-02-23] MEDS: FAMCICLOVIR 250 MG TABLET PO ×2 (09:02→21:29)
[2025-02-23] MEDS: FUROSEMIDE INJ 40 MG/4 ML VIAL IV PUSH (09:02)
[2025-02-23] MEDS: TIZANIDINE HCL 2 MG TABLET PO ×2 (09:03→21:29)
[2025-02-23] MEDS: PREGABALIN (*CRX) 75 MG CAPSULE 150 MG PO ×2 (09:03→18:07)
[2025-02-23] MEDS: SPIRONOLACTONE 25 MG TABLET PO (09:03)
[2025-02-23] MEDS: MEMANTINE 5 MG TABLET PO ×2 (09:03→21:29)
[2025-02-23] MEDS: SODIUM CHLORIDE 1 GM TABLET PO ×2 (09:03→18:08)
[2025-02-23] MEDS: ISOSORBIDE MONONITRATE 30 MG TAB.ER.24H PO (09:04)
[2025-02-23] MEDS: CEFDINIR 300 MG CAPSULE PO ×2 (09:04→21:28)
[2025-02-23] MEDS: IRBESARTAN 150 MG TABLET 300 MG PO (09:07)
[2025-02-23] MEDS: VENLAFAXINE HCL XR 37.5 MG CAP PO (09:07)
--- NOTE | 2025-02-23 09:56 | P.PNIM_ITS ---
Progress Note: A&P Assessment and Plan (1) Complete heart block: Code(s): I44.2 - Atrioventricular block, complete Status: Acute Assessment and Plan: Patient presented with complete heart block. She was on a Toprol XL 300mg daily which was stopped. Echo in Jul 2024 showing EF 60-65%, grade I diastolic dysfunction and moderate [place] Cardiology consulted. Patient remained bradycardic with 2:1 block so PM recommended which she had placed 02/21. She tolerated the procedure well. Continue telemetry and hemodynamic monitoring (2) Hypertension: Code(s): I10 - Essential (primary) hypertension Status: Acute Assessment and Plan: Patient's blood pressure was reviewed on 02/23 She was resumed on Norvasc, Spironolactone, Avapro, Imdur. Hydralazine IV available p.r.n. Patient also had clonidine patch which was stopped Blood pressure higher despite adding back Imdur. Add back hydralazone Monitor and adjust accordingly (3) Atrial fibrillation with RVR: Code(s): I48.91 - Unspecified atrial fibrillation Status: Acute Assessment and Plan: History of AFib with RVR. Anticoagulation on hold for procedure Resume Xarelto when okay with Cardiology (4) Hyponatremia: Code(s): E87.1 - Hypo-osmolality and hyponatremia Status: Acute Assessment and Plan: Patient with chronic hyponatremia. Na 124 on admission and dropped to 120 Nephrology consulted and appreciate their input. Sodium chloride oral tabs and fluid restriction ordered. Lasix IV also started Sodium 132 today Monitor sodium values (5) Congestive heart failure: Code(s): I50.9 - Heart failure, unspecified Status: Acute Assessment and Plan: Echo as above. CXR on admission showing significant peribronchial thickening with mild pulmonary vascular congestion and a left pleural effusion. BNP 2980. Lasix IV started. Negative fluid balance. CXR today reviewed showing mild interstitial edema Continue IV Lasix (6) UTI (urinary tract infection): Qualifiers: Hematuria presence: without hematuria Urinary tract infection type: acute cystitis Qualified Code(s): N30.00 - Acute cystitis without hematuria Code(s): N39.0 - Urinary tract infection, site not specified Status: Resolved Assessment and Plan: Recently diagnosed UTI. Remains afebrile. WBC higher for unclear reasons. Continue cefdinir to complete a course. Plan Chronic Resp Failure - on O2 at 2L chronically. She is at baseline. DVT prophylaxis -SCD. Anticoagulation on hold Code status - DNR Subjective Date/time seen: 02/23/25 09:56 Interval history: 74yo female with HTN, chronic respiratory failure on supplemental O2 (2L NC), CVA, bipolar disorder, anxiety, failure to thrive, GERD, hyperlipidemia, hypertension, chronic hyponatremia, asthma, epilepsy not currently treated with antiepileptic medications and previous left AKA presents here with weakness, lethargy and shortness of breath. Found to have complete heart block, second-degree 2 is to 1 heart block status post permanent pacemaker placement on 02/21/[address] Dominguez. No CP or SOB. Family heard patient wheezing last night. Eating okay. Nausea controlled with scheduled Zofran. She has asthma and was on inhalers in the past but not now. Also was on scheduled bronchodiltors in the past but since stopped. No BM yet - MOM given Exam Narrative: AF 98.4 197/86 98 17 97% 2L Gen - NARD Chest - CTA bilaterally CV - RRR S1/S2. Telemetry showing paced rhythm. Abd - Soft, obese, nontender Ext -1+ right pedal edema with left AKA. Neuro - Alert and appropriate Psych - Nml mood and affect Skin - Warm and dry Objective Data Vital Signs Vital Signs: Vital Signs - 24 hr 02/22/25 10:00 02/22/25 12:00 02/22/25 12:00 Temperature 97.6 F Pulse Rate 95 82 84 Respiratory Rate 13 14 Blood Pressure 138/48 L Pulse Oximetry 98 98 Oxygen Delivery Nasal Cannula Oxygen Flow Rate 2 Fraction of Inspired Oxygen 02/22/25 12:00 02/22/25 12:00 02/22/25 13:40 Temperature 97.6 F Pulse Rate 84 87 Respiratory Rate 14 Blood Pressure 138/48 L Pulse Oximetry 98 100 Oxygen Delivery Nasal Cannula Oxygen Flow Rate 2 Fraction of Inspired Oxygen 02/22/25 13:54 02/22/25 16:00 02/22/25 16:00 Temperature 97.8 F Pulse Rate 76 74 Respiratory Rate 13 Blood Pressure 157/87 H Pulse Oximetry 100 99 Oxygen Delivery Nasal Cannula Oxygen Flow Rate 2 Fraction of Inspired Oxygen 02/22/25 16:00 02/22/25 18:00 02/22/25 19:30 Temperature 98.3 F Pulse Rate 81 102 H 104 H Respiratory Rate 15 Blood Pressure 211/82 H Pulse Oximetry 96 Oxygen Delivery Oxygen Flow Rate Fraction of Inspired Oxygen 02/22/25 20:00 02/22/25 20:00 02/22/25 21:44 Temperature Pulse Rate 82 85 93 Respiratory Rate 19 20 Blood Pressure Pulse Oximetry 91 97 Oxygen Delivery Nasal Cannula Oxygen Flow Rate 2 2 Fraction of Inspired Oxygen 28 02/22/25 21:45 02/22/25 22:00 02/23/25 00:00 Temperature Pulse Rate 93 87 105 H Respiratory Rate Blood Pressure 156/64 H Pulse Oximetry 98 Oxygen Delivery Oxygen Flow Rate Fraction of Inspired Oxygen 02/23/25 00:06 02/23/25 00:15 02/23/25 00:15 Temperature 99.6 F Pulse Rate 63 72 72 Respiratory Rate 18 18 Blood Pressure 157/55 H Pulse Oximetry 94 94 Oxygen Delivery Nasal Cannula Oxygen Flow Rate 2 Fraction of Inspired Oxygen 02/23/25 00:41 02/23/25 02:00 02/23/25 04:00 Temperature Pulse Rate 73 87 94 Respiratory Rate 18 Blood Pressure Pulse Oximetry 97 Oxygen Delivery Non-Rebreather Mask Oxygen Flow Rate 2 Fraction of Inspired Oxygen 02/23/25 04:00 02/23/25 04:00 02/23/25 05:09 Temperature 98.6 F Pulse Rate 99 94 Respiratory Rate 18 Blood Pressure 176/86 H 155/66 H Pulse Oximetry 97 Oxygen Delivery Oxygen Flow Rate Fraction of Inspired Oxygen 02/23/25 06:00 02/23/25 08:00 02/23/25 08:00 Temperature 98.4 F Pulse Rate 100 97 Respiratory Rate 17 Blood Pressure 197/86 H Pulse Oximetry 97 97 Oxygen Delivery Nasal Cannula Oxygen Flow Rate 2 Fraction of Inspired Oxygen 02/23/25 08:00 Temperature Pulse Rate 98 Respiratory Rate Blood Pressure Pulse Oximetry Oxygen Delivery Oxygen Flow Rate Fraction of Inspired Oxygen Intake/Output Intake/Output: Intake & Output 02/20/25 02/21/25 02/22/25 02/23/25 23:59 23:59 23:59 23:59 Intake Total 4471 301 9872 300 Output Total 1016 936 2834 100 Balance -880 -120 -1360 200 Meds/Results Medications: Active Medications Generic Name Dose Route Start Last Admin Trade Name Freq PRN Reason Stop Dose Admin Acetaminophen 650 mg 02/19/25 17:18 02/22/25 09:31 Acetaminophen 325 Mg Tablet PO 650 mg Q6H PRN Administration Mild Pain (1-3) or Fever Albuterol/Ipratropium 3 ml 02/20/25 00:27 Ipratropium 0.5 Mg/Albuterol Sulfate 2.5 Mg Ampul.Neb 3 Ml INHALATION Q6HRT PRN Wheezing Amlodipine Besylate 10 mg 02/20/25 09:00 02/23/25 09:02 Amlodipine Besylate 10 Mg Tablet PO 10 mg DAILY KELIN Administration Artificial Tears 2 drop 02/20/25 09:00 02/23/25 09:00 Artificial Tears Ophth Soln 15 Ml Bottle EACH EYE 2 drop Q12HR KELIN Administration Atorvastatin Calcium 10 mg 02/20/25 21:00 02/22/25 20:03 Atorvastatin 10 Mg Tablet PO 10 mg HS KELIN Administration Bisacodyl 10 mg 02/20/25 00:05 Bisacodyl 5 Mg Tablet Ec PO HS PRN Constipation Buspirone HCl 10 mg 02/20/25 09:00 02/23/25 09:04 Buspirone Hcl 10 Mg Tablet PO 10 mg Q12HR KELIN Administration Cefdinir 300 mg 02/20/25 09:00 02/23/25 09:04 Cefdinir 300 Mg Capsule PO 02/26/25 21:01 300 mg Q12HR KELIN Administration Clonazepam 0.5 mg 02/20/25 09:00 02/23/25 09:02 Clonazepam (*Crx) 0.5 Mg Tablet PO 0.5 mg Q12HR KELIN Administration Famciclovir 250 mg 02/20/25 09:00 02/23/25 09:02 Famciclovir 250 Mg Tablet PO 250 mg Q12HR KELIN Administration Famotidine 10 mg 02/20/25 09:00 02/23/25 09:02 Famotidine 10 Mg Tablet PO 10 mg DAILY KELIN Administration Fluticasone Propionate 1 spray 02/20/25 09:00 02/23/25 09:01 Fluticasone Propionate 0.05% Na Spr 16 Gm Btl (*Bkc) NASAL 1 spray DAILY KELIN Administration Furosemide 40 mg 02/22/25 12:45 02/23/25 09:02 Furosemide Inj 40 Mg/4 Ml Vial IV PUSH 40 mg DAILY KELIN Administration Hydralazine HCl 50 mg 02/20/25 06:00 02/21/25 05:28 Hydralazine Hcl 50 Mg Tablet PO Not Given Q8HR [facility] Hydralazine HCl 20 mg 02/20/25 07:43 02/22/25 20:03 Hydralazine Hcl 20 Mg/Ml Vial IV PUSH 20 mg Q4H PRN Administration SBP more than 160 Hydrocortisone 1 applic 02/21/25 16:20 02/22/25 20:13 Hydrocortisone 1% 30 Gm Cream TOPICAL 1 applic TID PRN Administration Itching Irbesartan 300 mg 02/20/25 09:00 02/23/25 09:07 Irbesartan 150 Mg Tablet PO 300 mg QAM [facility] Administration Isosorbide Mononitrate 30 mg 02/22/25 12:10 02/23/25 09:04 Isosorbide Mononitrate 30 Mg Tab.Er.24h PO 30 mg DAILY [facility] Administration Lactulose 30 gm 02/20/25 11:15 Lactulose 20 Gm/30 Ml Udc PO Q12HR PRN Constipation Magnesium Citrate 300 ml 02/20/25 00:27 Magnesium Citrate 300 Ml Btl PO DAILY PRN constipation Magnesium Hydroxide 30 ml 02/20/25 00:27 02/23/25 09:00 Magnesium Hydroxide Susp 30 Ml Udc PO 30 ml DAILY PRN Administration constipation Memantine 5 mg 02/20/25 09:00 02/23/25 09:03 Memantine 5 Mg Tablet PO 5 mg Q12HR [facility] Administration Ondansetron HCl 4 mg 02/20/25 06:00 02/23/25 06:06 Ondansetron Hcl Odt 4 Mg Tablet PO 4 mg Q8HR [facility] Administration Oxycodone HCl 5 mg 02/20/25 20:30 02/23/25 04:10 Oxycodone Hcl (*Crx) 5 Mg Tab Ir PO 5 mg Q8HR PRN Administration Pain Rated 7-10 Polyethylene Glycol 17 gm 02/20/25 11:15 Polyethylene Glycol 3350 17 Gm Powd.Pack PO DAILY PRN Constipation Polyethylene Glycol 17 gm 02/22/25 12:05 02/23/25 09:00 Polyethylene Glycol 3350 17 Gm Powd.Pack PO 17 gm QAM [facility] Administration Pregabalin 150 mg 02/22/25 17:00 02/23/25 09:03 Pregabalin (*Crx) 75 Mg Capsule PO 150 mg BID KELIN Administration Senna/Docusate Sodium 2 tab 02/20/25 09:00 02/23/25 09:01 Senna/Docusate Sodium Tablet PO 2 tab Q12HR KELIN Administration Sodium Chloride 1 gm 02/20/25 09:00 02/23/25 09:03 Sodium Chloride 1 Gm Tablet PO 1 gm BID KELIN Administration Spironolactone 25 mg 02/20/25 09:00 02/23/25 09:03 Spironolactone 25 Mg Tablet PO 25 mg DAILY KELIN Administration Tizanidine HCl 2 mg 02/20/25 09:00 02/23/25 09:03 Tizanidine Hcl 2 Mg Tablet PO 2 mg Q12HR KELIN Administration Venlafaxine HCl 37.5 mg 02/20/25 09:00 02/23/25 09:07 Venlafaxine Hcl Xr 37.5 Mg Cap PO 37.5 mg DAILY KELIN Administration Radiology Results: ITS Impressions Chest X-Ray 02/23/25 09:22 IMPRESSION: 1: Cardiomegaly with mild interstitial edema. Labs Labs: Laboratory Results - last 24 hr 02/23/25 06:21 WBC 12.2 H RBC 3.40 L Hgb 9.5 L Hct 30.6 L MCV 90.0 MCH 27.9 MCHC 31.0 L RDW 17.5 H Plt Count 280 MPV 10.4 Sodium 132 L Potassium 4.1 Chloride 97 L Carbon Dioxide 30 Anion Gap 5 BUN 19 H Creatinine 1.07 H Estim Creat Clear Calc 45 Estimated GFR 50 L Glucose 109 Calcium 8.4 Magnesium 1.9 Total Bilirubin 0.1 L AST 26 ALT 49 H Alkaline Phosphatase 105 Total Protein 6.1 L Albumin 3.2 L
--- NOTE | 2025-02-23 09:58 | P.PNNP_ITS ---
Progress Note: A&P Assessment and Plan (1) Hyponatremia: Code(s): E87.1 - Hypo-osmolality and hyponatremia Status: Acute Assessment and Plan: * improvement noted * acute on chronic issue * baseline sodium runs high 120s to low 130s * multifactorial issue: * medications (buspirone, clonzepam, venlafaxine...etc) * history of CVAs * volume overload/CHF * excess free water intake * reactive airway disease/asthma/COPD (?) * bradycardia (?) * continue fluid restriction and salt tablets * on IV lasix as well -- transition to oral once fluid status better * recent CXR noted * follow trend of repeat sodium levels (2) Complete heart block: Code(s): I44.2 - Atrioventricular block, complete Status: Acute Assessment and Plan: * as noted on presentation to the ER * Cardiology consulted/following * transitioned to bradycardia but remained hemodynamically stable * beta geoff therapy discontinued * however, despite adequate period of beta geoff washout, she remained bradycardic with 2:1 block * permanent pacemaker recommended * s/p PPM placement on 02/21 * follow telemetry and hemodynamics (3) Congestive heart failure: Code(s): I50.9 - Heart failure, unspecified Status: Acute Assessment and Plan: * Echo (July 2024) noted: * left ventricular systolic function is normal, estimated at 60-65% * left ventricular diastolic function is grade I diastolic dysfunction * moderate aortic valve regurgitation * mild mitral valve regurgitation * mild tricuspid valve regurgitation. * complicated by known history of Afib * given CXR findings - on IV diuretics * follow daily weights, I/Os, and respiratory status * continue supportive therapy (4) Hypertension: Code(s): I10 - Essential (primary) hypertension Status: Acute Assessment and Plan: * erratic as noted * resumed on oral meds of amlodipine/irbesartan/hydralazine * PRN IV hydralazine * follow trend of hemodynamics (5) UTI (urinary tract infection): Qualifiers: Hematuria presence: without hematuria Urinary tract infection type: a cute cystitis Qualified Code(s): N30.00 - Acute cystitis without hematuria Code(s): N39.0 - Urinary tract infection, site not specified Status: Acute Assessment and Plan: * as noted on previous hospitalization * on antibiotics (6) Anemia: Qualifiers: Anemia type: unspecified type Qualified Code(s): D64.9 - Anemia, unspecified Code(s): D64.9 - Anemia, unspecified Status: Chronic Assessment and Plan: * probably due to acute illness and recent hospitalizations * follow trend of H/H Not much else to add from renal perspective -- will continue to follow from a distance. L Subjective Date/time seen: 02/23/25 09:58 Interval history: Follow-up for acute on chronic hyponatremia. Sodium continues to improve with current therapy/interventions (fluid restriction, salt tabs, and IV lasix); eating and drinking okay but still has nausea which apparently is a chronic issue/problems; no other acute complaints voiced when seen. Exam 2 Narrative: General: elderly but WD/WN female in NAD Heart: bradycardic, normal S1 and S2; no rub Lungs: clear anteriorly Abdomen: soft, nontender, nondistended, positive bowel sounds Extremities: no cyanosis or clubbing; 1+ edema; s/p left BKA Skin: no rash Objective Data Vital Signs Vital Signs: Vital Signs Temp Pulse Resp BP Pulse Ox O2 Del Method O2 Flow Rate 02/23/25 08:00 98.4 F 97 17 197/86 H 97 Nasal Cannula 2 02/23/25 06:00 100 02/23/25 05:09 155/66 H 02/23/25 04:00 98.6 F 94 18 176/86 H 97 02/23/25 04:00 99 02/23/25 04:00 94 18 97 Non-Rebreather Mask 2 02/23/25 02:00 87 02/23/25 00:41 73 02/23/25 00:15 99.6 F 72 18 157/55 H 94 02/23/25 00:15 72 18 94 Nasal Cannula 2 02/23/25 00:06 63 02/23/25 00:00 105 H 02/22/25 22:00 87 02/22/25 21:45 93 156/64 H 98 02/22/25 21:44 93 20 97 Nasal Cannula 2 02/22/25 20:00 85 02/22/25 20:00 82 19 91 2 02/22/25 19:30 98.3 F 104 H 15 211/82 H 96 02/22/25 18:00 102 H Intake/Output Intake/Output: Intake & Output 02/20/25 02/21/25 02/22/25 02/23/25 23:59 23:59 23:59 23:59 Intake Total 5745 695 0723 780 Output Total 9464 310 4204 100 Balance -880 120 -0370 680 Meds/Results Medications: Active Medications Generic Name Dose Route Start Last Admin Trade Name Freq PRN Reason Stop Dose Admin Acetaminophen 650 mg 02/19/25 17:18 02/22/25 09:31 Acetaminophen 325 Mg Tablet PO 650 mg Q6H PRN Administration Mild Pain (1-3) or Fever Albuterol/Ipratropium 3 ml 02/20/25 00:27 Ipratropium 0.5 Mg/Albuterol Sulfate 2.5 Mg Ampul.Neb 3 Ml INHALATION Q6HRT PRN Wheezing Amlodipine Besylate 10 mg 02/20/25 09:00 02/23/25 09:02 Amlodipine Besylate 10 Mg Tablet PO 10 mg DAILY KELIN Administration Artificial Tears 2 drop 02/20/25 09:00 02/23/25 09:00 Artificial Tears Ophth Soln 15 Ml Bottle EACH EYE 2 drop Q12HR KELIN Administration Atorvastatin Calcium 10 mg 02/20/25 21:00 02/22/25 20:03 Atorvastatin 10 Mg Tablet PO 10 mg HS KELIN Administration Bisacodyl 10 mg 02/20/25 00:05 Bisacodyl 5 Mg Tablet Ec PO HS PRN Constipation Buspirone HCl 10 mg 02/20/25 09:00 02/23/25 09:04 Buspirone Hcl 10 Mg Tablet PO 10 mg Q12HR KELIN Administration Cefdinir 300 mg 02/20/25 09:00 02/23/25 09:04 Cefdinir 300 Mg Capsule PO 02/26/25 21:01 300 mg Q12HR KELIN Administration Clonazepam 0.5 mg 02/20/25 09:00 02/23/25 09:02 Clonazepam (*Crx) 0.5 Mg Tablet PO 0.5 mg Q12HR KELIN Administration Famciclovir 250 mg 02/20/25 09:00 02/23/25 09:02 Famciclovir 250 Mg Tablet PO 250 mg Q12HR KELIN Administration Famotidine 10 mg 02/20/25 09:00 02/23/25 09:02 Famotidine 10 Mg Tablet PO 10 mg DAILY KELIN Administration Fluticasone Propionate 1 spray 02/20/25 09:00 02/23/25 09:01 Fluticasone Propionate 0.05% Na Spr 16 Gm Btl (*Bkc) NASAL 1 spray DAILY KELIN Administration Furosemide 40 mg 02/22/25 12:45 02/23/25 09:02 Furosemide Inj 40 Mg/4 Ml Vial IV PUSH 40 mg DAILY KELIN Administration Hydralazine HCl 50 mg 02/20/25 06:00 02/21/25 05:28 Hydralazine Hcl 50 Mg Tablet PO Not Given Q8HR KELIN Hydralazine HCl 20 mg 02/20/25 07:43 02/22/25 20:03 Hydralazine Hcl 20 Mg/Ml Vial IV PUSH 20 mg Q4H PRN Administration SBP more than 160 Hydrocortisone 1 applic 02/21/25 16:20 02/22/25 20:13 Hydrocortisone 1% 30 Gm Cream TOPICAL 1 applic TID PRN Administration Itching Irbesartan 300 mg 02/20/25 09:00 02/23/25 09:07 Irbesartan 150 Mg Tablet PO 300 mg QAM KELIN Administration Isosorbide Mononitrate 30 mg 02/22/25 12:10 02/23/25 09:04 Isosorbide Mononitrate 30 Mg Tab.Er.24h PO 30 mg DAILY KELNI Administration Lactulose 30 gm 02/20/25 11:15 Lactulose 20 Gm/30 Ml Udc PO Q12HR PRN Constipation Magnesium Citrate 300 ml 02/20/25 00:27 Magnesium Citrate 300 Ml Btl PO DAILY PRN constipation Magnesium Hydroxide 30 ml 02/20/25 00:27 02/23/25 09:00 Magnesium Hydroxide Susp 30 Ml Udc PO 30 ml DAILY PRN Administration constipation Memantine 5 mg 02/20/25 09:00 02/23/25 09:03 Memantine 5 Mg Tablet PO 5 mg Q12HR KELIN Administration Ondansetron HCl 4 mg 02/20/25 06:00 02/23/25 06:06 Ondansetron Hcl Odt 4 Mg Tablet PO 4 mg Q8HR KELIN Administration Oxycodone HCl 5 mg 02/20/25 20:30 02/23/25 04:10 Oxycodone Hcl (*Crx) 5 Mg Tab Ir PO 5 mg Q8HR PRN Administration Pain Rated 7-10 Polyethylene Glycol 17 gm 02/20/25 11:15 Polyethylene Glycol 3350 17 Gm Powd.Pack PO DAILY PRN Constipation Polyethylene Glycol 17 gm 02/22/25 12:05 02/23/25 09:00 Polyethylene Glycol 3350 17 Gm Powd.Pack PO 17 gm QAM KELIN Administration Pregabalin 150 mg 02/22/25 17:00 02/23/25 09:03 Pregabalin (*Crx) 75 Mg Capsule PO 150 mg BID KELIN Administration Senna/Docusate Sodium 2 tab 02/20/25 09:00 02/23/25 09:01 Senna/Docusate Sodium Tablet PO 2 tab Q12HR KELIN Administration Sodium Chloride 1 gm 02/20/25 09:00 02/23/25 09:03 Sodium Chloride 1 Gm Tablet PO 1 gm BID KELIN Administration Spironolactone 25 mg 02/20/25 09:00 02/23/25 09:03 Spironolactone 25 Mg Tablet PO 25 mg DAILY KELIN Administration Tizanidine HCl 2 mg 02/20/25 09:00 02/23/25 09:03 Tizanidine Hcl 2 Mg Tablet PO 2 mg Q12HR KELIN Administration Venlafaxine HCl 37.5 mg 02/20/25 09:00 02/23/25 09:07 Venlafaxine Hcl Xr 37.5 Mg Cap PO 37.5 mg DAILY KELIN Administration Radiology Results: ITS Impressions Chest X-Ray 02/23/25 09:22 IMPRESSION: 1: Cardiomegaly with mild interstitial edema. Labs Labs: Laboratory Tests 02/23/25 06:21 02/23/25 06:21 Calcium 8.4 Magnesium 1.9 Total Bilirubin 0.1 L AST 26 ALT 49 H Alkaline Phosphatase 105 Total Protein 6.1 L Albumin 3.2 L
--- NOTE | 2025-02-23 12:20 | P.CDI_ITS ---
CDI Query Clarification Request Please specify acuity of heart failure if known. * Acute * Chronic * Acute on Chronic * Unknown The medical chart reflects the following: Photo Optics Technician documented: (7) Congestive heart failure: Most recent echo 07/2024 Summary 1. Technically difficult study with limited views. 2. Left ventricular chamber dimension is normal. 3. Left ventricular systolic function is normal, estimated at 60-65%. 4. There is mildly increased left ventricular wall thickness. 5. The left ventricular diastolic function is grade I diastolic dysfunction. 6. Right ventricular systolic function is normal. 7. Left atrial chamber dimension is mildly enlarged. 8. There is moderate aortic valve regurgitation. 9. There is mild mitral valve regurgitation. 10. There is mild tricuspid valve regurgitation. hospitalist documented: (5) Congestive heart failure: Echo as above. CXR on admission showing significant peribronchial thickening with mild pulmonary vascular congestion and a left pleural effusion. BNP 2980. Lasix IV started. Negative fluid balance. CXR today reviewed showing mild interstitial edema Continue IV Lasix 02/20 BNP: 2980 IV Lasix b.i.d. ordered
--- NOTE | 2025-02-23 13:12 | PC.NURSE ---
Patient bladder scanned at 1312 for no urine output since this shift. patient given diuretics this AM. Bladder scan resulted in 279 mls of urine residing in bladder. Patient reports no pain or discomfort in abdomen at this time.
[2025-02-23] MEDS: ATORVASTATIN 10 MG TABLET PO (21:27)
[2025-02-24] VITALS (21 sets, daily range): BP systolic 118–183; BP diastolic 51–75; PULSE 61–96; RESP 12–24; TEMP 36.4–37.1; O2SAT 92–100
[2025-02-24] MEDS: oxyCODONE HCL (*CRX) 5 MG TAB IR PO ×3 (04:31→22:50)
[2025-02-24 04:58] LABS: Add Urine Microscopic? YES; Appearance Urine Clear (Clear); Budding Yeast Urine Present /hpf; Glucose Urine UA Negative (Negative); Leukocyte Esterase Ur 2+ LEU/UL (Negative); Need Manual Microscopic Reviewed; Nitrate Urine Negative (Negative); Specific Grav Ur 1.018 (1.001-1.035)
[2025-02-24 06:19] LABS: Hematocrit 30.0 % (37.0-47.0); Hemoglobin 9.2 g/dL (12.0-15.0); Mean Corpuscular HGB Conc 30.7 g/dl (32-36); Mean Corpuscular Hemoglobin 27.5 pg (26-34); Mean Corpuscular Volume 89.6 fl (80-100); Platelet Count Result 273 k/mm3 (150-375); Red Blood Count 3.35 M/mm3 (4.2-5.4); White Blood Count 11.4 K/mm3 (4.5-10.0)
[2025-02-24] MEDS: ONDANSETRON HCL ODT 4 MG TABLET PO ×3 (06:45→22:51)
[2025-02-24 06:59] LABS: Alanine Aminotransferase 33 U/L (6-35); Albumin Level 3.1 g/dL (3.5-5.1); Alkaline Phosphatase 92 U/L (38-126); Anion Gap 6 mmol/L (4-12); Aspartate Amino Transferase 17 U/L (14-36); Bilirubin,Total 0.1 mg/dL (0.2-1.3); Blood Urea Nitrogen 23 mg/dL (7-17); Calcium 8.3 mg/dL (8.4-10.2); Carbon Dioxide 29 mmol/L (22-30); Chloride 96 mmol/L (98-107); Estimated CRCL calculation 39 ml/min; Estimated Glomerular Filt Rate 42; Glucose 111 mg/dL (65-110); Magnesium 2.1 mg/dL (1.6-2.3); Potassium 4.2 mmol/L (3.4-5.0); Sodium 131 mmol/L (137-145); Total Protein 6.0 g/dL (6.3-8.2)
[2025-02-24] MEDS: IPRATROPIUM 0.5 MG/ALBUTEROL SULFATE 2.5 MG AMPUL.NEB 3 ML INHALATION ×2 (08:12→20:51)
[2025-02-24] MEDS: FAMCICLOVIR 250 MG TABLET PO ×2 (08:55→22:51)
[2025-02-24] MEDS: SENNA/DOCUSATE SODIUM TABLET 2 TAB PO ×2 (08:55→22:51)
[2025-02-24] MEDS: SPIRONOLACTONE 25 MG TABLET PO (08:55)
[2025-02-24] MEDS: clonazePAM (*CRX) 0.5 MG TABLET PO ×2 (08:55→22:50)
[2025-02-24] MEDS: FAMOTIDINE 10 MG TABLET PO (08:55)
[2025-02-24] MEDS: TIZANIDINE HCL 2 MG TABLET PO ×2 (08:55→22:51)
[2025-02-24] MEDS: CEFDINIR 300 MG CAPSULE PO ×2 (08:55→22:50)
[2025-02-24] MEDS: SODIUM CHLORIDE 1 GM TABLET PO ×2 (08:55→22:50)
[2025-02-24] MEDS: ISOSORBIDE MONONITRATE 30 MG TAB.ER.24H PO (08:56)
[2025-02-24] MEDS: PREGABALIN (*CRX) 75 MG CAPSULE 150 MG PO ×2 (08:56→22:51)
[2025-02-24] MEDS: IRBESARTAN 150 MG TABLET 300 MG PO (08:56)
[2025-02-24] MEDS: MEMANTINE 5 MG TABLET PO ×2 (08:56→22:51)
[2025-02-24] MEDS: VENLAFAXINE HCL XR 37.5 MG CAP PO (08:56)
[2025-02-24] MEDS: FUROSEMIDE INJ 40 MG/4 ML VIAL IV PUSH (09:05)
[2025-02-24] MEDS: ARTIFICIAL TEARS OPHTH SOLN 15 ML BOTTLE 2 DROP EACH EYE ×2 (09:13→22:50)
[2025-02-24] MEDS: FLUTICASONE PROPIONATE 0.05% NA SPR 16 GM BTL (*BKC) 1 SPRAY NASAL (09:13)
--- NOTE | 2025-02-24 18:19 | P.PNIM_ITS ---
Progress Note: A&P Assessment and Plan (1) Congestive heart failure: Code(s): I50.9 - Heart failure, unspecified Status: Acute Assessment and Plan: Echo as below. CXR on admission showing significant peribronchial thickening with mild pulmonary vascular congestion and a left pleural effusion. BNP 2980. Patient with acute on chronic diastolic CHF. Lasix IV started. Negative fluid balance. Repeat CXR showing mild interstitial edema Continue IV Lasix for today but change to oral tomorrow. Extra Lasix today. (2) Complete heart block: Code(s): I44.2 - Atrioventricular block, complete Status: Acute Assessment and Plan: Patient presented with complete heart block. She was on a Toprol XL 300mg daily which was stopped. Echo in Jul 2024 showing EF 60-65%, grade I diastolic dysfunction and moderate AR Cardiology consulted. Patient remained bradycardic with 2:1 block so PM recommended which she had placed 02/21. She tolerated the procedure well. Continue telemetry and hemodynamic monitoring (3) Hypertension: Code(s): I10 - Essential (primary) hypertension Status: Acute Assessment and Plan: Patient's blood pressure was reviewed on 02/24 She was resumed on Norvasc, Spironolactone, Avapro, Imdur. Hydralazine IV available p.r.n. Patient also had clonidine patch which was stopped Blood pressure higher despite adding back Imdur but home hydralazine dose lowered BP too much. BP stable - Add back hydralazine at lower dose Monitor and adjust accordingly (4) Atrial fibrillation with RVR: Code(s): I48.91 - Unspecified atrial fibrillation Status: Acute Assessment and Plan: History of AFib with RVR. Anticoagulation on hold for procedure Resume Xarelto 1 week after PPM placement per Cardiology (5) Hyponatremia: Code(s): E87.1 - Hypo-osmolality and hyponatremia Status: Acute Assessment and Plan: Patient with chronic hyponatremia. Na 124 on admission and dropped to 120 Nephrology consulted and appreciate their input. Sodium chloride oral tabs and fluid restriction ordered. Lasix IV also started Sodium 131 today Monitor sodium values (6) UTI (urinary tract infection): Qualifiers: Hematuria presence: without hematuria Urinary tract infection type: acute cystitis Qualified Code(s): N30.00 - Acute cystitis without hematuria Code(s): N39.0 - Urinary tract infection, site not specified Status: Acute Assessment and Plan: Recently diagnosed UTI. Remains afebrile. WBC better Continue cefdinir to complete a course. Plan Chronic Resp Failure - on O2 at 2L chronically. She is at baseline. DVT prophylaxis -SCD. Anticoagulation on hold Code status - DNR Subjective Date/time seen: 02/24/25 18:19 Interval history: 74yo female with HTN, chronic respiratory failure on supplemental O2 (2L NC), CVA, bipolar disorder, anxiety, failure to thrive, GERD, hyperlipidemia, hypertension, chronic hyponatremia, asthma, epilepsy not currently treated with antiepileptic medications and previous left AKA presents here with weakness, lethargy and shortness of breath. Found to have complete heart block, second-degree 2 is to 1 heart block status post permanent pacemaker placement on 02/21/[address] Dominguez. Complains of stomach pain. No BM yet. No problems overnight. Exam Narrative: AF 98.4 151/68 88 12 99% 2L Gen - NARD Chest - bibasilar crackles, nml RR CV - RRR S1/S2. Telemetry showing mostly paced rhythm. Abd - Soft, obese, nontender Ext - trace right pedal edema with left AKA. Neuro - Alert and appropriate Psych - Nml mood and affect Skin - Warm and dry Objective Data Vital Signs Vital Signs: Vital Signs - 24 hr 02/23/25 20:00 02/23/25 20:00 02/23/25 20:50 Temperature 99 F Pulse Rate 88 72 88 Respiratory Rate 18 18 Blood Pressure 146/62 H Pulse Oximetry 98 98 Oxygen Delivery Nasal Cannula Oxygen Flow Rate 2 02/23/25 22:00 02/24/25 00:00 02/24/25 00:00 Temperature 98.7 F Pulse Rate 60 86 78 Respiratory Rate 16 Blood Pressure 118/51 L Pulse Oximetry 97 Oxygen Delivery Oxygen Flow Rate 02/24/25 00:08 02/24/25 02:00 02/24/25 04:00 Temperature 98.6 F Pulse Rate 86 62 84 Respiratory Rate 16 18 Blood Pressure 148/75 H Pulse Oximetry 97 97 Oxygen Delivery Nasal Cannula Oxygen Flow Rate 2 02/24/25 04:00 02/24/25 04:00 02/24/25 06:00 Temperature Pulse Rate 84 78 90 Respiratory Rate 18 Blood Pressure Pulse Oximetry 97 Oxygen Delivery Nasal Cannula Oxygen Flow Rate 2 02/24/25 07:55 02/24/25 08:00 02/24/25 08:13 Temperature 97.5 F L Pulse Rate 96 75 Respiratory Rate 16 Blood Pressure 171/69 H Pulse Oximetry 100 94 Oxygen Delivery Nasal Cannula Oxygen Flow Rate 2 02/24/25 08:13 02/24/25 08:21 02/24/25 10:00 Temperature Pulse Rate 73 95 73 Respiratory Rate 24 H 20 Blood Pressure Pulse Oximetry Oxygen Delivery Oxygen Flow Rate 02/24/25 12:00 02/24/25 12:00 02/24/25 14:00 Temperature 97.8 F Pulse Rate 73 75 90 Respiratory Rate 20 Blood Pressure 150/57 H Pulse Oximetry 92 Oxygen Delivery Oxygen Flow Rate 02/24/25 16:00 Temperature 98.4 F Pulse Rate 88 Respiratory Rate 12 Blood Pressure 151/68 H Pulse Oximetry 99 Oxygen Delivery Oxygen Flow Rate Intake/Output Intake/Output: Intake & Output 02/21/25 02/22/25 02/23/25 02/24/25 23:59 23:59 23:59 23:59 Intake Total 780 1090 1020 400 Output Total 900 2450 250 75 Balance -120 -1360 770 325 Meds/Results Medications: Active Medications Generic Name Dose Route Start Last Admin Trade Name Freq PRN Reason Stop Dose Admin Acetaminophen 650 mg 02/19/25 17:18 02/22/25 09:31 Acetaminophen 325 Mg Tablet PO 650 mg Q6H PRN Administration Mild Pain (1-3) or Fever Albuterol/Ipratropium 3 ml 02/20/25 00:27 02/24/25 08:12 Ipratropium 0.5 Mg/Albuterol Sulfate 2.5 Mg Ampul.Neb 3 Ml INHALATION 3 ml Q6HRT PRN Administration Wheezing Amlodipine Besylate 10 mg 02/20/25 09:00 02/24/25 08:56 Amlodipine Besylate 10 Mg Tablet PO 10 mg DAILY KELIN Administration Artificial Tears 2 drop 02/20/25 09:00 02/24/25 09:13 Artificial Tears Ophth Soln 15 Ml Bottle EACH EYE 2 drop Q12HR KELIN Administration Atorvastatin Calcium 10 mg 02/20/25 21:00 02/23/25 21:27 Atorvastatin 10 Mg Tablet PO 10 mg HS KELIN Administration Bisacodyl 10 mg 02/20/25 00:05 Bisacodyl 5 Mg Tablet Ec PO HS PRN Constipation Buspirone HCl 10 mg 02/20/25 09:00 02/24/25 08:56 Buspirone Hcl 10 Mg Tablet PO 10 mg Q12HR KELIN Administration Cefdinir 300 mg 02/20/25 09:00 02/24/25 08:55 Cefdinir 300 Mg Capsule PO 02/26/25 21:01 300 mg Q12HR KELIN Administration Clonazepam 0.5 mg 02/20/25 09:00 02/24/25 08:55 Clonazepam (*Crx) 0.5 Mg Tablet PO 0.5 mg Q12HR KELIN Administration Famciclovir 250 mg 02/20/25 09:00 02/24/25 08:55 Famciclovir 250 Mg Tablet PO 250 mg Q12HR KELIN Administration Famotidine 10 mg 02/20/25 09:00 02/24/25 08:55 Famotidine 10 Mg Tablet PO 10 mg DAILY KELIN Administration Fluticasone Propionate 1 spray 02/20/25 09:00 02/24/25 09:13 Fluticasone Propionate 0.05% Na Spr 16 Gm Btl (*Bkc) NASAL 1 spray DAILY KELIN Administration Furosemide 40 mg 02/22/25 12:45 02/24/25 09:05 Furosemide Inj 40 Mg/4 Ml Vial IV PUSH 40 mg DAILY KELIN Administration Hydralazine HCl 20 mg 02/20/25 07:43 02/22/25 20:03 Hydralazine Hcl 20 Mg/Ml Vial IV PUSH 20 mg Q4H PRN Administration SBP more than 160 Hydralazine HCl 10 mg 02/24/25 08:45 02/24/25 13:56 Hydralazine 10 Mg Tablet PO 10 mg Q8HR KELIN Administration Hydrocortisone 1 applic 02/21/25 16:20 02/22/25 20:13 Hydrocortisone 1% 30 Gm Cream TOPICAL 1 applic TID PRN Administration Itching Irbesartan 300 mg 02/20/25 09:00 02/24/25 08:56 Irbesartan 150 Mg Tablet PO 300 mg QAM KELIN Administration Isosorbide Mononitrate 30 mg 02/22/25 12:10 02/24/25 08:56 Isosorbide Mononitrate 30 Mg Tab.Er.24h PO 30 mg DAILY KELIN Administration Lactulose 30 gm 02/20/25 11:15 Lactulose 20 Gm/30 Ml Udc PO Q12HR PRN Constipation Magnesium Citrate 300 ml 02/20/25 00:27 Magnesium Citrate 300 Ml Btl PO DAILY PRN constipation Magnesium Hydroxide 30 ml 02/20/25 00:27 02/23/25 09:00 Magnesium Hydroxide Susp 30 Ml Udc PO 30 ml DAILY PRN Administration constipation Memantine 5 mg 02/20/25 09:00 02/24/25 08:56 Memantine 5 Mg Tablet PO 5 mg Q12HR KELIN Administration Ondansetron HCl 4 mg 02/20/25 06:00 02/24/25 13:56 Ondansetron Hcl Odt 4 Mg Tablet PO 4 mg Q8HR KELIN Administration Oxycodone HCl 5 mg 02/20/25 20:30 02/24/25 12:23 Oxycodone Hcl (*Crx) 5 Mg Tab Ir PO 5 mg Q8HR PRN Administration Pain Rated 7-10 Polyethylene Glycol 17 gm 02/20/25 11:15 Polyethylene Glycol 3350 17 Gm Powd.Pack PO DAILY PRN Constipation Polyethylene Glycol 17 gm 02/22/25 12:05 02/24/25 09:06 Polyethylene Glycol 3350 17 Gm Powd.Pack PO 17 gm QAM KELIN Administration Pregabalin 150 mg 02/24/25 21:00 Pregabalin (*Crx) 75 Mg Capsule PO Q12HR KELIN Senna/Docusate Sodium 2 tab 02/20/25 09:00 02/24/25 08:55 Senna/Docusate Sodium Tablet PO 2 tab Q12HR KELIN Administration Sodium Chloride 1 gm 02/24/25 21:00 Sodium Chloride 1 Gm Tablet PO Q12HR KELIN Spironolactone 25 mg 02/20/25 09:00 02/24/25 08:55 Spironolactone 25 Mg Tablet PO 25 mg DAILY KELIN Administration Tizanidine HCl 2 mg 02/20/25 09:00 02/24/25 08:55 Tizanidine Hcl 2 Mg Tablet PO 2 mg Q12HR KELIN Administration Venlafaxine HCl 37.5 mg 02/20/25 09:00 02/24/25 08:56 Venlafaxine Hcl Xr 37.5 Mg Cap PO 37.5 mg DAILY KELIN Administration Radiology Results: ITS Impressions Chest X-Ray 08/01/25 09:22 IMPRESSION: 1: Cardiomegaly with mild interstitial edema. Labs Labs: Laboratory Results - last 24 hr 02/24/25 02/24/25 04:36 06:11 WBC 11.4 H RBC 3.35 L Hgb 9.2 L Hct 30.0 L MCV 89.6 MCH 27.5 MCHC 30.7 L RDW 17.4 H Plt Count 273 MPV 10.2 Sodium 131 L Potassium 4.2 Chloride 96 L Carbon Dioxide 29 Anion Gap 6 BUN 23 H Creatinine 1.26 H Estim Creat Clear Calc 39 Estimated GFR 42 L Glucose 111 H Calcium 8.3 L Magnesium 2.1 Total Bilirubin 0.1 L AST 17 ALT 33 Alkaline Phosphatase 92 Total Protein 6.0 L Albumin 3.1 L Urine Color Yellow Urine Appearance Clear Urine pH 5.5 Ur Specific [place] 1.018 Urine Protein 3+ H Urine Glucose (UA) Negative Urine Ketones Trace H Ur Blood (Man) Negative Urine Nitrate Negative Urine Bilirubin Negative Urine Urobilinogen 0.2 Ur Leukocyte Esterase 2+ H Add Ur Microanalysis Reviewed Urine RBC 0-2 Urine WBC 51-100 Ur Squamous Epith Cells Few Urine Bacteria Rare Urine Casts 6-10 Hyaline Casts Present Urine Yeast (Budding) Present H
[2025-02-24] MEDS: ATORVASTATIN 10 MG TABLET PO (22:50)
[2025-02-24] MEDS: PRIMIDONE 50 MG TABLET 100 MG BY MOUTH (22:51)
[2025-02-24] MEDS: MAGNESIUM HYDROXIDE SUSP 30 ML UDC PO (22:52)
[2025-02-25] VITALS (22 sets, daily range): BP systolic 100–178; BP diastolic 40–64; PULSE 50–109; RESP 12–20; TEMP 36.4–37.3; O2SAT 94–100
[2025-02-25 05:16] LABS: Anion Gap 3 mmol/L (4-12); Blood Urea Nitrogen 25 mg/dL (7-17); Calcium 7.8 mg/dL (8.4-10.2); Carbon Dioxide 30 mmol/L (22-30); Chloride 94 mmol/L (98-107); Estimated CRCL calculation 48 ml/min; Estimated Glomerular Filt Rate 53; Glucose 137 mg/dL (65-110); Potassium 4.6 mmol/L (3.4-5.0); Sodium 127 mmol/L (137-145)
[2025-02-25] MEDS: ONDANSETRON HCL ODT 4 MG TABLET PO ×3 (05:40→22:02)
[2025-02-25] MEDS: FLUTICASONE PROPIONATE 0.05% NA SPR 16 GM BTL (*BKC) 1 SPRAY NASAL (09:51)
[2025-02-25] MEDS: FUROSEMIDE INJ 40 MG/4 ML VIAL IV PUSH (09:52)
[2025-02-25] MEDS: ARTIFICIAL TEARS OPHTH SOLN 15 ML BOTTLE 2 DROP EACH EYE ×2 (09:52→22:00)
[2025-02-25] MEDS: VENLAFAXINE HCL XR 37.5 MG CAP PO (09:53)
[2025-02-25] MEDS: CEFDINIR 300 MG CAPSULE PO ×2 (09:53→22:01)
[2025-02-25] MEDS: SPIRONOLACTONE 25 MG TABLET PO (09:53)
[2025-02-25] MEDS: FAMOTIDINE 10 MG TABLET PO (09:53)
[2025-02-25] MEDS: FAMCICLOVIR 250 MG TABLET PO ×2 (09:53→22:01)
[2025-02-25] MEDS: oxyCODONE HCL (*CRX) 5 MG TAB IR PO (09:53)
[2025-02-25] MEDS: SENNA/DOCUSATE SODIUM TABLET 2 TAB PO ×2 (09:53→22:03)
[2025-02-25] MEDS: TIZANIDINE HCL 2 MG TABLET PO ×2 (09:53→22:02)
[2025-02-25] MEDS: SODIUM CHLORIDE 1 GM TABLET PO ×2 (09:53→22:09)
[2025-02-25] MEDS: MEMANTINE 5 MG TABLET PO ×2 (09:53→22:02)
[2025-02-25] MEDS: clonazePAM (*CRX) 0.5 MG TABLET PO ×2 (09:54→22:02)
[2025-02-25] MEDS: BISACODYL 10 MG SUPPOSITORY RECTAL (09:54)
[2025-02-25] MEDS: ISOSORBIDE MONONITRATE 30 MG TAB.ER.24H PO (09:54)
[2025-02-25] MEDS: PRIMIDONE 50 MG TABLET 100 MG BY MOUTH ×2 (09:54→22:01)
[2025-02-25] MEDS: PREGABALIN (*CRX) 75 MG CAPSULE 150 MG PO ×2 (09:54→22:01)
[2025-02-25] MEDS: IRBESARTAN 150 MG TABLET 300 MG PO (09:54)
--- NOTE | 2025-02-25 10:05 | P.PNNP_ITS ---
Progress Note: A&P Assessment and Plan (1) Hyponatremia: Code(s): E87.1 - Hypo-osmolality and hyponatremia Status: Acute Assessment and Plan: * relatively stable * acute on chronic issue * baseline sodium runs high 120s to low 130s (seems to average out ~ 127 - 133mmol/L) * multifactorial issue: * medications (buspirone, clonzepam, venlafaxine...etc) * history of CVAs * volume overload/CHF * excess free water intake * reactive airway disease/asthma/COPD (?) * bradycardia (?) * continue fluid restriction and salt tablets * on IV lasix as well -- transition to oral once fluid status better * would give oral lasix at the same time as salt tab administration (i.e. 10 - 20mg po bid) * follow trend of repeat sodium levels (2) Complete heart block: Code(s): I44.2 - Atrioventricular block, complete Status: Acute Assessment and Plan: * as noted on presentation to the ER * Cardiology consulted/following * transitioned to bradycardia but remained hemodynamically stable * beta geoff therapy discontinued * however, despite adequate period of beta goeff washout, she remained bradycardic with 2:1 block * permanent pacemaker recommended * s/p PPM placement on 02/21 * follow telemetry and hemodynamics (3) Congestive heart failure: Code(s): I50.9 - Heart failure, unspecified Status: Acute Assessment and Plan: * Echo (July 2024) noted: * left ventricular systolic function is normal, estimated at 60-65% * left ventricular diastolic function is grade I diastolic dysfunction * moderate aortic valve regurgitation * mild mitral valve regurgitation * mild tricuspid valve regurgitation. * complicated by known history of Afib * given CXR findings - on IV diuretics * follow daily weights, I/Os, and respiratory status * continue supportive therapy (4) Hypertension: Code(s): I10 - Essential (primary) hypertension Status: Acute Assessment and Plan: * erratic as noted * resumed on oral meds of amlodipine/irbesartan/hydralazine * PRN IV hydralazine * follow trend of hemodynamics (5) UTI (urinary tract infection): Qualifiers: Hematuria presence: without hematuria Urinary tract infection type: a cute cystitis Qualified Code(s): N30.00 - Acute cystitis without hematuria Code(s): N39.0 - Urinary tract infection, site not specified Status: Acute Assessment and Plan: * as noted on previous hospitalization * on antibiotics (6) Anemia: Qualifiers: Anemia type: unspecified type Qualified Code(s): D64.9 - Anemia, unspecified Code(s): D64.9 - Anemia, unspecified Status: Chronic Assessment and Plan: * probably due to acute illness and recent hospitalizations * follow trend of H/H Not much else to add from renal perspective -- will continue to follow intermittently. L Subjective Date/time seen: 02/25/25 10:05 Interval history: Follow-up for acute on chronic hyponatremia. Slight drop in sodium noted by AM labs (but within established baseline range); no apparent distress noted at the time of my visit; no issues/events overnight or earlier this morning; remains on IV diuretic therapy; remains hemodynamically stable. Exam 2 Narrative: General: elderly but WD/WN female in NAD Heart: bradycardic, normal S1 and S2; no rub Lungs: clear anteriorly Abdomen: soft, nontender, nondistended, positive bowel sounds Extremities: no cyanosis or clubbing; 1+ edema; s/p left BKA Skin: no nodules Objective Data Vital Signs Vital Signs: Vital Signs Temp Pulse Resp BP Pulse Ox O2 Del Method O2 Flow Rate 02/25/25 08:00 98.8 F 86 12 121/48 L 97 02/25/25 06:00 80 02/25/25 04:00 50 L 02/25/25 04:00 98.2 F 105 H 18 157/64 H 97 02/25/25 03:05 105 H 18 97 Nasal Cannula 2 02/25/25 02:00 51 L 02/25/25 00:00 61 02/25/25 00:00 98.3 F 61 18 178/42 H 98 02/24/25 23:35 61 18 98 Nasal Cannula 2 02/24/25 22:40 68 15 98 Nasal Cannula 2 02/24/25 22:00 66 02/24/25 20:58 95 20 02/24/25 20:54 94 Nasal Cannula 2 02/24/25 20:53 95 20 02/24/25 20:00 63 02/24/25 20:00 98.5 F 68 15 183/51 H 98 02/24/25 18:00 65 02/24/25 16:00 83 02/24/25 16:00 98.4 F 88 12 151/68 H 99 02/24/25 14:00 90 02/24/25 12:00 97.8 F 75 20 150/57 H 92 02/24/25 12:00 73 Intake/Output Intake/Output: Intake & Output 02/22/25 02/23/25 02/24/25 02/25/25 23:59 23:59 23:59 23:59 Intake Total 1090 1020 1220 540 Output Total 2450 250 675 600 Balance -1360 770 545 -60 Meds/Results Medications: Active Medications Generic Name Dose Route Start Last Admin Trade Name Freq PRN Reason Stop Dose Admin Acetaminophen 650 mg 02/19/25 17:18 02/22/25 09:31 Acetaminophen 325 Mg Tablet PO 650 mg Q6H PRN Administration Mild Pain (1-3) or Fever Albuterol/Ipratropium 3 ml 02/20/25 00:27 02/25/25 11:21 Ipratropium 0.5 Mg/Albuterol Sulfate 2.5 Mg Ampul.Neb 3 Ml INHALATION 3 ml Q6HRT PRN Administration Wheezing Amlodipine Besylate 10 mg 02/20/25 09:00 02/25/25 09:53 Amlodipine Besylate 10 Mg Tablet PO 10 mg DAILY KELIN Administration Artificial Tears 2 drop 02/20/25 09:00 02/25/25 09:52 Artificial Tears Ophth Soln 15 Ml Bottle EACH EYE 2 drop Q12HR KELIN Administration Atorvastatin Calcium 10 mg 02/20/25 21:00 02/24/25 22:50 Atorvastatin 10 Mg Tablet PO 10 mg HS KELIN Administration Bisacodyl 10 mg 02/20/25 00:05 Bisacodyl 5 Mg Tablet Ec PO HS PRN Constipation Buspirone HCl 10 mg 02/20/25 09:00 02/25/25 09:54 Buspirone Hcl 10 Mg Tablet PO 10 mg Q12HR KELIN Administration Cefdinir 300 mg 02/20/25 09:00 02/25/25 09:53 Cefdinir 300 Mg Capsule PO 02/26/25 21:01 300 mg Q12HR KELIN Administration Clonazepam 0.5 mg 02/20/25 09:00 02/25/25 09:54 Clonazepam (*Crx) 0.5 Mg Tablet PO 0.5 mg Q12HR KELIN Administration Famciclovir 250 mg 02/20/25 09:00 02/25/25 09:53 Famciclovir 250 Mg Tablet PO 250 mg Q12HR KELIN Administration Famotidine 10 mg 02/20/25 09:00 02/25/25 09:53 Famotidine 10 Mg Tablet PO 10 mg DAILY KELIN Administration Fluticasone Propionate 1 spray 02/20/25 09:00 02/25/25 09:51 Fluticasone Propionate 0.05% Na Spr 16 Gm Btl (*Bkc) NASAL 1 spray DAILY KELIN Administration Furosemide 40 mg 02/22/25 12:45 02/25/25 09:52 Furosemide Inj 40 Mg/4 Ml Vial IV PUSH 40 mg DAILY KELIN Administration Hydralazine HCl 20 mg 02/20/25 07:43 02/22/25 20:03 Hydralazine Hcl 20 Mg/Ml Vial IV PUSH 20 mg Q4H PRN Administration SBP more than 160 Hydralazine HCl 10 mg 02/24/25 08:45 02/25/25 05:40 Hydralazine 10 Mg Tablet PO 10 mg Q8HR KELIN Administration Hydrocortisone 1 applic 02/21/25 16:20 02/22/25 20:13 Hydrocortisone 1% 30 Gm Cream TOPICAL 1 applic TID PRN Administration Itching Irbesartan 300 mg 02/20/25 09:00 02/25/25 09:54 Irbesartan 150 Mg Tablet PO 300 mg QAM KELIN Administration Isosorbide Mononitrate 30 mg 02/22/25 12:10 02/25/25 09:54 Isosorbide Mononitrate 30 Mg Tab.Er.24h PO 30 mg DAILY KELIN Administration Lactulose 30 gm 02/20/25 11:15 Lactulose 20 Gm/30 Ml Udc PO Q12HR PRN Constipation Magnesium Citrate 300 ml 02/20/25 00:27 Magnesium Citrate 300 Ml Btl PO DAILY PRN constipation Magnesium Hydroxide 30 ml 02/20/25 00:27 02/24/25 22:52 Magnesium Hydroxide Susp 30 Ml Udc PO 30 ml DAILY PRN Administration constipation Memantine 5 mg 02/20/25 09:00 02/25/25 09:53 Memantine 5 Mg Tablet PO 5 mg Q12HR KELIN Administration Ondansetron HCl 4 mg 02/20/25 06:00 02/25/25 05:40 Ondansetron Hcl Odt 4 Mg Tablet PO 4 mg Q8HR KELIN Administration Oxycodone HCl 5 mg 02/20/25 20:30 02/25/25 09:53 Oxycodone Hcl (*Crx) 5 Mg Tab Ir PO 5 mg Q8HR PRN Administration Pain Rated 7-10 Polyethylene Glycol 17 gm 02/20/25 11:15 Polyethylene Glycol 3350 17 Gm Powd.Pack PO DAILY PRN Constipation Polyethylene Glycol 17 gm 02/22/25 12:05 02/25/25 09:55 Polyethylene Glycol 3350 17 Gm Powd.Pack PO Not Given QAM KELIN Pregabalin 150 mg 02/24/25 21:00 02/25/25 09:54 Pregabalin (*Crx) 75 Mg Capsule PO 150 mg Q12HR KELIN Administration Primidone 100 mg 02/24/25 21:00 02/25/25 09:54 Primidone 50 Mg Tablet BY MOUTH 100 mg Q12H KELIN Administration Senna/Docusate Sodium 2 tab 02/20/25 09:00 02/25/25 09:53 Senna/Docusate Sodium Tablet PO 2 tab Q12HR KELIN Administration Sodium Chloride 1 gm 02/24/25 21:00 02/25/25 09:53 Sodium Chloride 1 Gm Tablet PO 1 gm Q12HR KELIN Administration Spironolactone 25 mg 02/20/25 09:00 02/25/25 09:53 Spironolactone 25 Mg Tablet PO 25 mg DAILY KELIN Administration Tizanidine HCl 2 mg 02/20/25 09:00 02/25/25 09:53 Tizanidine Hcl 2 Mg Tablet PO 2 mg Q12HR KELIN Administration Venlafaxine HCl 37.5 mg 02/20/25 09:00 02/25/25 09:53 Venlafaxine Hcl Xr 37.5 Mg Cap PO 37.5 mg DAILY KELIN Administration Radiology Results: ITS Impressions Chest X-Ray 02/23/25 09:22 IMPRESSION: 1: Cardiomegaly with mild interstitial edema. Labs Labs: Laboratory Tests 02/24/25 06:11 02/25/25 04:36 Calcium 7.8 L
[2025-02-25] MEDS: IPRATROPIUM 0.5 MG/ALBUTEROL SULFATE 2.5 MG AMPUL.NEB 3 ML INHALATION ×2 (11:21→20:59)
--- NOTE | 2025-02-25 15:23 | P.PNIM_ITS ---
Progress Note: A&P Assessment and Plan (1) Congestive heart failure: Code(s): I50.9 - Heart failure, unspecified Status: Acute Assessment and Plan: Echo as below. CXR on admission showing significant peribronchial thickening with mild pulmonary vascular congestion and a left pleural effusion. BNP 2980. Patient with acute on chronic diastolic CHF. Lasix IV started. Negative fluid balance. Repeat CXR showing mild interstitial edema Change to oral Lasix (2) Complete heart block: Code(s): I44.2 - Atrioventricular block, complete Status: Acute Assessment and Plan: Patient presented with complete heart block. She was on a Toprol XL 300mg daily which was stopped. Echo in Jul 2024 showing EF 60-65%, grade I diastolic dysfunction and moderate AR Cardiology consulted. Patient remained bradycardic with 2:1 block so PM recommended which she had placed 02/21. She tolerated the procedure well. Continue telemetry and hemodynamic monitoring (3) Hypertension: Code(s): I10 - Essential (primary) hypertension Status: Acute Assessment and Plan: Patient's blood pressure was reviewed on 02/25 She was resumed on Norvasc, Spironolactone, Avapro, Imdur. Hydralazine IV available p.r.n. Patient also had clonidine patch which was stopped Blood pressure still mildly elevated so hydralazine added back at lower dose BP better overall. Monitor and adjust accordingly (4) Atrial fibrillation with RVR: Code(s): I48.91 - Unspecified atrial fibrillation Status: Acute Assessment and Plan: History of AFib with RVR. Anticoagulation on hold for procedure Resume Xarelto 1 week after PPM placement per Cardiology (5) Hyponatremia: Code(s): E87.1 - Hypo-osmolality and hyponatremia Status: Acute Assessment and Plan: Patient with chronic hyponatremia. Na 124 on admission and dropped to 120 Nephrology consulted and appreciate their input. Sodium chloride oral tabs and fluid restriction ordered. Lasix IV also started Sodium was up to 132 but dropped to 127 today. Monitor sodium values (6) UTI (urinary tract infection): Qualifiers: Hematuria presence: without hematuria Urinary tract infection type: acute cystitis Qualified Code(s): N30.00 - Acute cystitis without hematuria Code(s): N39.0 - Urinary tract infection, site not specified Status: Acute Assessment and Plan: Recently diagnosed UTI. Remains afebrile. WBC better Continue cefdinir to complete a course. (7) Constipation: Qualifiers: Constipation type: chronic idiopathic constipation Qualified Code(s): K59.04 - Chronic idiopathic constipation Code(s): K59.00 - Constipation, unspecified Status: Acute Assessment and Plan: No BM or flatus. Last BM 02/20 after MagCitrate. She is on scheduled lactulose but changed to prn here and miralax scheduled. Enema unsuccessful. MagCitrate once. Schedule Lactulose. Continue Senna. Plan Chronic Resp Failure - on O2 at 2L chronically. She is at baseline. DVT prophylaxis -SCD. Anticoagulation on hold Code status - DNR Subjective Date/time seen: 02/25/25 15:23 Interval history: 74yo female with HTN, chronic respiratory failure on supplemental O2 (2L NC), CVA, bipolar disorder, anxiety, failure to thrive, GERD, hyperlipidemia, hypertension, chronic hyponatremia, asthma, epilepsy not currently treated with antiepileptic medications and previous left AKA presents here with weakness, lethargy and shortness of breath. Found to have complete heart block, second-degree 2 is to 1 heart block status post permanent pacemaker placement on 02/21/[address] Dominguez. No flatus or BMs. Feeling well. No problems. Exam Narrative: AF 98.1 100/40 79 12 97% 2L Gen - NARD Chest - clear anteriorly. nml RR CV - RRR S1/S2. Telemetry showing mostly paced rhythm. Abd - Soft, obese, nontender Ext - trace right pedal edema with left AKA. Neuro - Alert and appropriate Psych - Nml mood and affect Skin - Warm and dry Objective Data Vital Signs Vital Signs: Vital Signs - 24 hr 02/24/25 16:00 02/24/25 16:00 02/24/25 18:00 Temperature 98.4 F Pulse Rate 88 83 65 Respiratory Rate 12 Blood Pressure 151/68 H Pulse Oximetry 99 Oxygen Delivery Oxygen Flow Rate 02/24/25 20:00 02/24/25 20:00 02/24/25 20:53 Temperature 98.5 F Pulse Rate 68 63 95 Respiratory Rate 15 20 Blood Pressure 183/51 H Pulse Oximetry 98 Oxygen Delivery Oxygen Flow Rate 02/24/25 20:54 02/24/25 20:58 02/24/25 22:00 Temperature Pulse Rate 95 66 Respiratory Rate 20 Blood Pressure Pulse Oximetry 94 Oxygen Delivery Nasal Cannula Oxygen Flow Rate 2 02/24/25 22:40 02/24/25 23:35 02/25/25 00:00 Temperature 98.3 F Pulse Rate 68 61 61 Respiratory Rate 15 18 18 Blood Pressure 178/42 H Pulse Oximetry 98 98 98 Oxygen Delivery Nasal Cannula Nasal Cannula Oxygen Flow Rate 2 2 02/25/25 00:00 02/25/25 02:00 02/25/25 03:05 Temperature Pulse Rate 61 51 L 105 H Respiratory Rate 18 Blood Pressure Pulse Oximetry 97 Oxygen Delivery Nasal Cannula Oxygen Flow Rate 2 02/25/25 04:00 02/25/25 04:00 02/25/25 06:00 Temperature 98.2 F Pulse Rate 105 H 50 L 80 Respiratory Rate 18 Blood Pressure 157/64 H Pulse Oximetry 97 Oxygen Delivery Oxygen Flow Rate 02/25/25 08:00 02/25/25 08:00 02/25/25 11:22 Temperature 98.8 F Pulse Rate 86 78 Respiratory Rate 12 20 Blood Pressure 121/48 L Pulse Oximetry 97 97 Oxygen Delivery Nasal Cannula Oxygen Flow Rate 2 02/25/25 11:24 02/25/25 11:30 02/25/25 11:55 Temperature 98.1 F Pulse Rate 79 79 Respiratory Rate 20 12 Blood Pressure 100/40 L Pulse Oximetry 95 97 Oxygen Delivery Oxygen Flow Rate 2 02/25/25 12:00 Temperature Pulse Rate Respiratory Rate Blood Pressure Pulse Oximetry 97 Oxygen Delivery Nasal Cannula Oxygen Flow Rate 2 Intake/Output Intake/Output: Intake & Output 02/22/25 02/23/25 02/24/25 02/25/25 23:59 23:59 23:59 23:59 Intake Total 1090 1020 1220 780 Output Total 2450 250 675 600 Balance -1360 770 545 180 Meds/Results Medications: Active Medications Generic Name Dose Route Start Last Admin Trade Name Freq PRN Reason Stop Dose Admin Acetaminophen 650 mg 02/19/25 17:18 02/22/25 09:31 Acetaminophen 325 Mg Tablet PO 650 mg Q6H PRN Administration Mild Pain (1-5) Or Fever Hydrocodone Bitart/Acetaminophen 1 tab 02/25/25 15:06 Hydrocodone/Acetaminophen (*Crx) 5-325 Mg Tablet PO Q6H PRN Pain Rated 6 or Greater Albuterol/Ipratropium 3 ml 02/20/25 00:27 02/25/25 11:21 Ipratropium 0.5 Mg/Albuterol Sulfate 2.5 Mg Ampul.Neb 3 Ml INHALATION 3 ml Q6HRT PRN Administration Wheezing Amlodipine Besylate 10 mg 02/20/25 09:00 02/25/25 09:53 Amlodipine Besylate 10 Mg Tablet PO 10 mg DAILY KELIN Administration Artificial Tears 2 drop 02/20/25 09:00 02/25/25 09:52 Artificial Tears Ophth Soln 15 Ml Bottle EACH EYE 2 drop Q12HR KELIN Administration Atorvastatin Calcium 10 mg 02/20/25 21:00 02/24/25 22:50 Atorvastatin 10 Mg Tablet PO 10 mg HS KELIN Administration Bisacodyl 10 mg 02/20/25 00:05 Bisacodyl 5 Mg Tablet Ec PO HS PRN Constipation Buspirone HCl 10 mg 02/20/25 09:00 02/25/25 09:54 Buspirone Hcl 10 Mg Tablet PO 10 mg Q12HR KELIN Administration Cefdinir 300 mg 02/20/25 09:00 02/25/25 09:53 Cefdinir 300 Mg Capsule PO 02/26/25 21:01 300 mg Q12HR KELIN Administration Clonazepam 0.5 mg 02/20/25 09:00 02/25/25 09:54 Clonazepam (*Crx) 0.5 Mg Tablet PO 0.5 mg Q12HR KELIN Administration Famciclovir 250 mg 02/20/25 09:00 02/25/25 09:53 Famciclovir 250 Mg Tablet PO 250 mg Q12HR KELIN Administration Famotidine 10 mg 02/20/25 09:00 02/25/25 09:53 Famotidine 10 Mg Tablet PO 10 mg DAILY KELIN Administration Fluticasone Propionate 1 spray 02/20/25 09:00 02/25/25 09:51 Fluticasone Propionate 0.05% Na Spr 16 Gm Btl (*Bkc) NASAL 1 spray DAILY KELIN Administration Furosemide 40 mg 02/22/25 12:45 02/25/25 09:52 Furosemide Inj 40 Mg/4 Ml Vial IV PUSH 40 mg DAILY KELIN Administration Hydralazine HCl 20 mg 02/20/25 07:43 02/22/25 20:03 Hydralazine Hcl 20 Mg/Ml Vial IV PUSH 20 mg Q4H PRN Administration SBP more than 160 Hydralazine HCl 10 mg 02/24/25 08:45 02/25/25 13:06 Hydralazine 10 Mg Tablet PO 10 mg Q8HR KELIN Administration Hydrocortisone 1 applic 02/21/25 16:20 02/22/25 20:13 Hydrocortisone 1% 30 Gm Cream TOPICAL 1 applic TID PRN Administration Itching Irbesartan 300 mg 02/20/25 09:00 02/25/25 09:54 Irbesartan 150 Mg Tablet PO 300 mg QAM KELIN Administration Isosorbide Mononitrate 30 mg 02/22/25 12:10 02/25/25 09:54 Isosorbide Mononitrate 30 Mg Tab.Er.24h PO 30 mg DAILY KELIN Administration Lactulose 30 gm 02/25/25 21:00 Lactulose 20 Gm/30 Ml Udc PO Q12HR KELIN Magnesium Citrate 300 ml 02/20/25 00:27 Magnesium Citrate 300 Ml Btl PO DAILY PRN constipation Magnesium Hydroxide 30 ml 02/20/25 00:27 02/24/25 22:52 Magnesium Hydroxide Susp 30 Ml Udc PO 30 ml DAILY PRN Administration constipation Memantine 5 mg 02/20/25 09:00 02/25/25 09:53 Memantine 5 Mg Tablet PO 5 mg Q12HR [facility] Administration Ondansetron HCl 4 mg 02/20/25 06:00 02/25/25 13:06 Ondansetron Hcl Odt 4 Mg Tablet PO 4 mg Q8HR KELIN Administration Polyethylene Glycol 17 gm 02/20/25 11:15 Polyethylene Glycol 3350 17 Gm Powd.Pack PO DAILY PRN Constipation Pregabalin 150 mg 02/24/25 21:00 02/25/25 09:54 Pregabalin (*Crx) 75 Mg Capsule PO 150 mg Q12HR [facility] Administration Primidone 100 mg 02/24/25 21:00 02/25/25 09:54 Primidone 50 Mg Tablet BY MOUTH 100 mg Q12H KELIN Administration Senna/Docusate Sodium 2 tab 02/20/25 09:00 02/25/25 09:53 Senna/Docusate Sodium Tablet PO 2 tab Q12HR KELIN Administration Sodium Chloride 1 gm 02/24/25 21:00 02/25/25 09:53 Sodium Chloride 1 Gm Tablet PO 1 gm Q12HR KELIN Administration Spironolactone 25 mg 02/20/25 09:00 02/25/25 09:53 Spironolactone 25 Mg Tablet PO 25 mg DAILY KELIN Administration Tizanidine HCl 2 mg 02/20/25 09:00 02/25/25 09:53 Tizanidine Hcl 2 Mg Tablet PO 2 mg Q12HR KELIN Administration Venlafaxine HCl 37.5 mg 02/20/25 09:00 02/25/25 09:53 Venlafaxine Hcl Xr 37.5 Mg Cap PO 37.5 mg DAILY KELIN Administration Radiology Results: ITS Impressions Chest X-Ray 02/23/25 09:22 IMPRESSION: 1: Cardiomegaly with mild interstitial edema. Labs Labs: Laboratory Results - last 24 hr 02/25/25 04:36 Sodium 127 L Potassium 4.6 Chloride 94 L Carbon Dioxide 30 Anion Gap 3 L BUN 25 H Creatinine 1.03 H Estim Creat Clear Calc 48 Estimated GFR 53 L Glucose 137 H Calcium 7.8 L
[2025-02-25] MEDS: MAGNESIUM CITRATE 300 ML BTL 150 ML PO (15:50)
[2025-02-25] MEDS: BISACODYL 5 MG TABLET EC 10 MG PO (22:01)
[2025-02-25] MEDS: ATORVASTATIN 10 MG TABLET PO (22:04)
[2025-02-25] MEDS: HYDROcodone/acetaminophen (*CRX) 5-325 MG TABLET 1 TAB PO (22:04)
[2025-02-25] MEDS: LACTULOSE 20 GM/30 ML UDC 30 GM PO (22:06)
[2025-02-26] VITALS (22 sets, daily range): BP systolic 113–153; BP diastolic 46–64; PULSE 54–104; RESP 17–21; TEMP 36.4–36.6; O2SAT 94–100
[2025-02-26 04:35] LABS: Hematocrit 27.4 % (37.0-47.0); Hemoglobin 8.2 g/dL (12.0-15.0); Mean Corpuscular HGB Conc 29.9 g/dl (32-36); Mean Corpuscular Hemoglobin 27.6 pg (26-34); Mean Corpuscular Volume 92.3 fl (80-100); Platelet Count Result 264 k/mm3 (150-375); Red Blood Count 2.97 M/mm3 (4.2-5.4); White Blood Count 9.9 K/mm3 (4.5-10.0)
[2025-02-26 05:39] LABS: Albumin Level 2.7 g/dL (3.5-5.1); Anion Gap 1 mmol/L (4-12); Blood Urea Nitrogen 28 mg/dL (7-17); Calcium 8.0 mg/dL (8.4-10.2); Carbon Dioxide 31 mmol/L (22-30); Chloride 97 mmol/L (98-107); Estimated CRCL calculation 45 ml/min; Estimated Glomerular Filt Rate 48; Glucose 112 mg/dL (65-110); Potassium 5.2 mmol/L (3.4-5.0); Sodium 129 mmol/L (137-145)
[2025-02-26] MEDS: ONDANSETRON HCL ODT 4 MG TABLET PO ×3 (07:07→21:09)
[2025-02-26] MEDS: HYDROcodone/acetaminophen (*CRX) 5-325 MG TABLET 1 TAB PO ×2 (07:07→20:37)
[2025-02-26] MEDS: IPRATROPIUM 0.5 MG/ALBUTEROL SULFATE 2.5 MG AMPUL.NEB 3 ML INHALATION ×2 (08:13→20:47)
[2025-02-26] MEDS: SODIUM CHLORIDE 1 GM TABLET PO ×2 (09:29→20:23)
[2025-02-26] MEDS: VENLAFAXINE HCL XR 37.5 MG CAP PO (09:29)
[2025-02-26] MEDS: MEMANTINE 5 MG TABLET PO ×2 (09:29→20:23)
[2025-02-26] MEDS: PREGABALIN (*CRX) 75 MG CAPSULE 150 MG PO ×2 (09:29→20:24)
[2025-02-26] MEDS: PRIMIDONE 50 MG TABLET 100 MG BY MOUTH (09:29)
[2025-02-26] MEDS: clonazePAM (*CRX) 0.5 MG TABLET PO ×2 (09:30→20:23)
[2025-02-26] MEDS: TIZANIDINE HCL 2 MG TABLET PO ×2 (09:30→20:23)
[2025-02-26] MEDS: IRBESARTAN 150 MG TABLET 300 MG PO (09:30)
[2025-02-26] MEDS: FUROSEMIDE 20 MG TABLET PO ×2 (09:30→17:20)
[2025-02-26] MEDS: CEFDINIR 300 MG CAPSULE PO ×2 (09:31→20:24)
[2025-02-26] MEDS: FAMCICLOVIR 250 MG TABLET PO ×2 (09:31→20:23)
[2025-02-26] MEDS: SPIRONOLACTONE 25 MG TABLET PO (09:31)
[2025-02-26] MEDS: SENNA/DOCUSATE SODIUM TABLET 2 TAB PO ×2 (09:31→20:23)
[2025-02-26] MEDS: ISOSORBIDE MONONITRATE 30 MG TAB.ER.24H PO (09:31)
[2025-02-26] MEDS: FAMOTIDINE 10 MG TABLET PO (09:31)
[2025-02-26] MEDS: ARTIFICIAL TEARS OPHTH SOLN 15 ML BOTTLE 2 DROP EACH EYE ×2 (09:34→20:24)
[2025-02-26] MEDS: FLUTICASONE PROPIONATE 0.05% NA SPR 16 GM BTL (*BKC) 1 SPRAY NASAL (09:34)
--- NOTE | 2025-02-26 10:52 | PCNWS ---
Weekly nutritional screen. Patient is tolerating current Heart healthy diet with adequate intake, 75-100%. No weight loss reported. No nutritional needs at this time.
[2025-02-26 10:53] LABS: Potassium 4.8 mmol/L (3.4-5.0)
--- NOTE | 2025-02-26 17:46 | PM.IMPN ---
Progress Note: A&P Assessment and Plan (1) Medication adverse effect: Code(s): T50.905A - Adverse effect of unspecified drugs, medicaments and biological substances, initial encounter Status: Acute Assessment and Plan: Patient more somnolent. She was recently resumed on her primione at half her home dose. Today, she states she dos not take this med. Now with cough as well but CXR clear. Hold primidone and monitor today If she improves, then will stop this med completely and hopefully discharge (2) Congestive heart failure: Code(s): I50.9 - Heart failure, unspecified Status: Acute Assessment and Plan: Echo as below. CXR on admission showing significant peribronchial thickening with mild pulmonary vascular congestion and a left pleural effusion. BNP 2980. Patient with acute on chronic diastolic CHF. Lasix IV started. Repeat CXR showing no pulmonary edema Continue oral Lasix (3) Complete heart block: Code(s): I44.2 - Atrioventricular block, complete Status: Acute Assessment and Plan: Patient presented with complete heart block. She was on a Toprol XL 300mg daily which was stopped. Echo in Jul 2024 showing EF 60-65%, grade I diastolic dysfunction and moderate [place] Cardiology consulted. Patient remained bradycardic with 2:1 block so PM recommended which she had placed 02/21. She tolerated the procedure well. Continue telemetry and hemodynamic monitoring (4) Hypertension: Code(s): I10 - Essential (primary) hypertension Status: Acute Assessment and Plan: Patient's blood pressure was reviewed on 02/26 She was resumed on Norvasc, Spironolactone, Avapro, Imdur. Hydralazine IV available p.r.n. Patient also had clonidine patch which was stopped Blood pressure still mildly elevated so hydralazine added back at lower dose BP better overall. Monitor and adjust accordingly (5) Atrial fibrillation with RVR: Code(s): I48.91 - Unspecified atrial fibrillation Status: Acute Assessment and Plan: History of AFib with RVR. Anticoagulation on hold for procedure Resume Xarelto 1 week after PPM placement per Cardiology (6) Hyponatremia: Code(s): E87.1 - Hypo-osmolality and hyponatremia Status: Acute Assessment and Plan: Patient with chronic hyponatremia. Na 124 on admission and dropped to 120 Nephrology consulted and appreciate their input. Sodium chloride oral tabs and fluid restriction ordered. Lasix also started Sodium was up to 132 but dropped to 127; slightly better today at 129 Monitor sodium values (7) UTI (urinary tract infection): Qualifiers: Hematuria presence: without hematuria Urinary tract infection type: acute cystitis Qualified Code(s): N30.00 - Acute cystitis without hematuria Code(s): N39.0 - Urinary tract infection, site not specified Status: Acute Assessment and Plan: Recently diagnosed UTI. Remains afebrile. WBC better Continue cefdinir to complete a course. (8) Constipation: Qualifiers: Constipation type: chronic idiopathic constipation Qualified Code(s): K59.04 - Chronic idiopathic constipation Code(s): K59.00 - Constipation, unspecified Status: Acute Assessment and Plan: No BM or flatus. Last BM 02/20 after MagCitrate. She is on scheduled lactulose but changed to prn here and miralax scheduled. Enema unsuccessful. MagCitrate once on 02/25 with good results. Schedule Lactulose. Continue Senna. Plan Chronic Resp Failure - on O2 at 2L chronically. She is at baseline. DVT prophylaxis -SCD. Anticoagulation on hold Code status - DNR Subjective Date/time seen: 02/26/25 17:46 Interval history: 74yo female with HTN, chronic respiratory failure on supplemental O2 (2L NC), CVA, bipolar disorder, anxiety, failure to thrive, GERD, hyperlipidemia, hypertension, chronic hyponatremia, asthma, epilepsy not currently treated with antiepileptic medications and previous left AKA presents here with weakness, lethargy and shortness of breath. Found to have complete heart block, second-degree 2 is to 1 heart block status post permanent pacemaker placement on 02/21/[address] Dominguez. She feels unwell. She is having a dry, nonproductive cough. No fevers. +BMs now. She denies she is on primidone (even though it is on her med list). Exam Narrative: AF 97.7 113/46 67 20 98% 2L Gen - NARD Chest - mildly coarse BS. CV - RRR S1/S2. Telemetry showing mostly paced rhythm. Abd - Soft, obese, nontender Ext - trace right pedal edema with left AKA. Neuro - obtunded and somnolent Psych - Nml mood and affect Skin - Warm and dry Objective Data Vital Signs Vital Signs: Vital Signs - 24 hr 02/25/25 18:00 02/25/25 20:00 02/25/25 20:29 Temperature Pulse Rate 73 109 H Respiratory Rate Blood Pressure Pulse Oximetry 94 Oxygen Delivery Oxygen Flow Rate 2 02/25/25 20:59 02/25/25 21:08 02/25/25 21:40 Temperature 98.6 F Pulse Rate 81 78 78 Respiratory Rate 20 18 18 Blood Pressure 156/55 H Pulse Oximetry 100 100 Oxygen Delivery Nasal Cannula Oxygen Flow Rate 2 02/25/25 22:00 02/25/25 23:35 02/26/25 00:00 Temperature 99.1 F Pulse Rate 69 60 54 L Respiratory Rate 18 Blood Pressure 126/41 L Pulse Oximetry 97 Oxygen Delivery Oxygen Flow Rate 02/26/25 00:56 02/26/25 02:00 02/26/25 04:00 Temperature Pulse Rate 60 76 77 Respiratory Rate 18 Blood Pressure Pulse Oximetry 97 Oxygen Delivery Nasal Cannula Oxygen Flow Rate 2 02/26/25 04:15 02/26/25 04:35 02/26/25 06:01 Temperature 97.6 F Pulse Rate 87 87 84 Respiratory Rate 17 17 Blood Pressure 151/64 H Pulse Oximetry 100 100 Oxygen Delivery Nasal Cannula Oxygen Flow Rate 2 02/26/25 08:00 02/26/25 08:08 02/26/25 08:14 Temperature 97.7 F Pulse Rate 73 72 74 Respiratory Rate 21 H 20 Blood Pressure 121/60 Pulse Oximetry 97 Oxygen Delivery Oxygen Flow Rate 02/26/25 08:16 02/26/25 10:00 02/26/25 11:43 Temperature 97.7 F Pulse Rate 104 H 81 Respiratory Rate 20 Blood Pressure 126/50 L Pulse Oximetry 94 98 Oxygen Delivery Nasal Cannula Oxygen Flow Rate 2 02/26/25 12:00 02/26/25 14:00 02/26/25 16:11 Temperature 97.7 F Pulse Rate 70 66 67 Respiratory Rate 20 Blood Pressure 113/46 L Pulse Oximetry 98 Oxygen Delivery Oxygen Flow Rate Intake/Output Intake/Output: Intake & Output 02/23/25 02/24/25 02/25/25 02/26/25 23:59 23:59 23:59 23:59 Intake Total 1020 1980 969 3144 Output Total 250 675 600 2 Balance 770 159 768 5360 Meds/Results Medications: Active Medications Generic Name Dose Route Start Last Admin Trade Name Freq PRN Reason Stop Dose Admin Acetaminophen 650 mg 02/19/25 17:18 02/22/25 09:31 Acetaminophen 325 Mg Tablet PO 650 mg Q6H PRN Administration Mild Pain (1-5) Or Fever Hydrocodone Bitart/Acetaminophen 1 tab 02/25/25 15:06 02/26/25 07:07 Hydrocodone/Acetaminophen (*Crx) 5-325 Mg Tablet PO 1 tab Q6H PRN Administration Pain Rated 6 or Greater Albuterol/Ipratropium 3 ml 02/20/25 00:27 02/26/25 08:13 Ipratropium 0.5 Mg/Albuterol Sulfate 2.5 Mg Ampul.Neb 3 Ml INHALATION 3 ml Q6HRT PRN Administration Wheezing Amlodipine Besylate 10 mg 02/20/25 09:00 02/26/25 09:30 Amlodipine Besylate 10 Mg Tablet PO 10 mg DAILY KELIN Administration Artificial Tears 2 drop 02/20/25 09:00 02/26/25 09:34 Artificial Tears Ophth Soln 15 Ml Bottle EACH EYE 2 drop Q12HR KELIN Administration Atorvastatin Calcium 10 mg 02/20/25 21:00 02/25/25 22:04 Atorvastatin 10 Mg Tablet PO 10 mg HS KELIN Administration Bisacodyl 10 mg 02/20/25 00:05 02/25/25 22:01 Bisacodyl 5 Mg Tablet Ec PO 10 mg HS PRN Administration Constipation Buspirone HCl 10 mg 02/20/25 09:00 02/26/25 09:29 Buspirone Hcl 10 Mg Tablet PO 10 mg Q12HR KELIN Administration Cefdinir 300 mg 02/20/25 09:00 02/26/25 09:31 Cefdinir 300 Mg Capsule PO 02/26/25 21:01 300 mg Q12HR KELIN Administration Clonazepam 0.5 mg 02/20/25 09:00 02/26/25 09:30 Clonazepam (*Crx) 0.5 Mg Tablet PO 0.5 mg Q12HR KELIN Administration Famciclovir 250 mg 02/20/25 09:00 02/26/25 09:31 Famciclovir 250 Mg Tablet PO 250 mg Q12HR KELIN Administration Famotidine 10 mg 02/20/25 09:00 02/26/25 09:31 Famotidine 10 Mg Tablet PO 10 mg DAILY KELIN Administration Fluticasone Propionate 1 spray 02/20/25 09:00 02/26/25 09:34 Fluticasone Propionate 0.05% Na Spr 16 Gm Btl (*Bkc) NASAL 1 spray DAILY KELIN Administration Furosemide 20 mg 02/26/25 09:00 02/26/25 17:20 Furosemide 20 Mg Tablet PO 20 mg BID KELIN Administration Hydralazine HCl 20 mg 02/20/25 07:43 02/22/25 20:03 Hydralazine Hcl 20 Mg/Ml Vial IV PUSH 20 mg Q4H PRN Administration SBP more than 160 Hydralazine HCl 10 mg 02/24/25 08:45 02/26/25 13:11 Hydralazine 10 Mg Tablet PO 10 mg Q8HR KELIN Administration Hydrocortisone 1 applic 02/21/25 16:20 02/22/25 20:13 Hydrocortisone 1% 30 Gm Cream TOPICAL 1 applic TID PRN Administration Itching Irbesartan 300 mg 02/20/25 09:00 02/26/25 09:30 Irbesartan 150 Mg Tablet PO 300 mg QAM KELIN Administration Isosorbide Mononitrate 30 mg 02/22/25 12:10 02/26/25 09:31 Isosorbide Mononitrate 30 Mg Tab.Er.24h PO 30 mg DAILY KELIN Administration Lactulose 30 gm 02/25/25 21:00 02/26/25 09:31 Lactulose 20 Gm/30 Ml Udc PO Not Given Q12HR KELIN Magnesium Citrate 300 ml 02/20/25 00:27 Magnesium Citrate 300 Ml Btl PO DAILY PRN constipation Magnesium Hydroxide 30 ml 02/20/25 00:27 02/24/25 22:52 Magnesium Hydroxide Susp 30 Ml Udc PO 30 ml DAILY PRN Administration constipation Memantine 5 mg 02/20/25 09:00 02/26/25 09:29 Memantine 5 Mg Tablet PO 5 mg Q12HR KELIN Administration Ondansetron HCl 4 mg 02/20/25 06:00 02/26/25 13:11 Ondansetron Hcl Odt 4 Mg Tablet PO 4 mg Q8HR KELIN Administration Polyethylene Glycol 17 gm 02/20/25 11:15 Polyethylene Glycol 3350 17 Gm Powd.Pack PO DAILY PRN Constipation Pregabalin 150 mg 02/24/25 21:00 02/26/25 09:29 Pregabalin (*Crx) 75 Mg Capsule PO 150 mg Q12HR KELIN Administration Senna/Docusate Sodium 2 tab 02/20/25 09:00 02/26/25 09:31 Senna/Docusate Sodium Tablet PO 2 tab Q12HR KELIN Administration Sodium Chloride 1 gm 02/24/25 21:00 02/26/25 09:29 Sodium Chloride 1 Gm Tablet PO 1 gm Q12HR KELIN Administration Spironolactone 25 mg 02/20/25 09:00 02/26/25 09:31 Spironolactone 25 Mg Tablet PO 25 mg DAILY KELIN Administration Tizanidine HCl 2 mg 02/20/25 09:00 02/26/25 09:30 Tizanidine Hcl 2 Mg Tablet PO 2 mg Q12HR KELIN Administration Venlafaxine HCl 37.5 mg 02/20/25 09:00 02/26/25 09:29 Venlafaxine Hcl Xr 37.5 Mg Cap PO 37.5 mg DAILY KELIN Administration Radiology Results: ITS Impressions Chest X-Ray 02/26/25 16:12 IMPRESSION: 1: NO ACUTE CARDIOPULMONARY DISEASE. Labs Labs: Laboratory Results - last 24 hr 02/26/25 02/26/25 02/26/25 04:23 04:30 09:50 WBC 9.9 RBC 2.97 L Hgb 8.2 L Hct 27.4 L MCV 92.3 MCH 27.6 MCHC 29.9 L RDW 17.5 H Plt Count 264 MPV 9.8 Sodium 129 L Potassium 5.2 H 4.8 Chloride 97 L Carbon Dioxide 31 H Anion Gap 1 L BUN 28 H Creatinine 1.11 H Estim Creat Clear Calc 45 Estimated GFR 48 L Glucose 112 H Calcium 8.0 L Phosphorus 4.4 Albumin 2.7 L
[2025-02-26] MEDS: ATORVASTATIN 10 MG TABLET PO (20:23)
[2025-02-27] VITALS (15 sets, daily range): BP systolic 75–166; BP diastolic 30–69; PULSE 54–101; RESP 15–20; TEMP 36.3–36.9; O2SAT 95–98
[2025-02-27] MEDS: IPRATROPIUM 0.5 MG/ALBUTEROL SULFATE 2.5 MG AMPUL.NEB 3 ML INHALATION ×2 (03:25→09:41)
[2025-02-27] MEDS: HYDROcodone/acetaminophen (*CRX) 5-325 MG TABLET 1 TAB PO (04:16)
[2025-02-27] MEDS: ONDANSETRON HCL ODT 4 MG TABLET PO ×3 (05:57→22:05)
[2025-02-27] MEDS: ISOSORBIDE MONONITRATE 30 MG TAB.ER.24H PO (09:19)
[2025-02-27] MEDS: FUROSEMIDE 20 MG TABLET PO ×2 (09:19→18:20)
[2025-02-27] MEDS: SENNA/DOCUSATE SODIUM TABLET 2 TAB PO ×2 (09:19→22:05)
[2025-02-27] MEDS: TIZANIDINE HCL 2 MG TABLET PO ×2 (09:19→22:05)
[2025-02-27] MEDS: MEMANTINE 5 MG TABLET PO ×2 (09:19→22:06)
[2025-02-27] MEDS: SODIUM CHLORIDE 1 GM TABLET PO ×2 (09:19→22:06)
[2025-02-27] MEDS: SPIRONOLACTONE 25 MG TABLET PO (09:19)
[2025-02-27] MEDS: VENLAFAXINE HCL XR 37.5 MG CAP PO (09:19)
[2025-02-27] MEDS: FAMCICLOVIR 250 MG TABLET PO ×2 (09:19→22:06)
[2025-02-27] MEDS: IRBESARTAN 150 MG TABLET 300 MG PO (09:19)
[2025-02-27] MEDS: PREGABALIN (*CRX) 75 MG CAPSULE 150 MG PO ×2 (09:19→22:04)
[2025-02-27] MEDS: FAMOTIDINE 10 MG TABLET PO (09:20)
[2025-02-27] MEDS: FLUTICASONE PROPIONATE 0.05% NA SPR 16 GM BTL (*BKC) 1 SPRAY NASAL (09:20)
[2025-02-27] MEDS: clonazePAM (*CRX) 0.5 MG TABLET PO ×2 (09:20→22:05)
[2025-02-27] MEDS: ARTIFICIAL TEARS OPHTH SOLN 15 ML BOTTLE 2 DROP EACH EYE (09:20)
--- NOTE | 2025-02-27 14:51 | PM.IMPN ---
Progress Note: A&P Assessment and Plan (1) Medication adverse effect: Code(s): T50.905A - Adverse effect of unspecified drugs, medicaments and biological substances, initial encounter Status: Acute Assessment and Plan: Patient more somnolent. She was recently resumed on her primione at half her home dose but now stated she does not take this. Due to her somnolence, Primidone was stopped. Still somnolent. Last norco was 4am today. Will stop norco. Still c/o dry cough but CXR clear. No wheezing and last DuoNeb was 5 hours ago. Continue to hold primidone. Stop [place]. Check ABG. Consider backing off her clonazepam (2) Hypertension: Code(s): I10 - Essential (primary) hypertension Status: Acute Assessment and Plan: Patient's blood pressure was reviewed on 02/27 She was resumed on Norvasc, Spironolactone, Avapro, Imdur. Hydralazine IV available p.r.n. Patient was on a clonidine patch which was stopped Blood pressure still mildly elevated so hydralazine added back at lower dose but now having hypotension today. Stop hydralazine. Repeat BP. Will tolerate mildly elevated BP going forward. (3) Congestive heart failure: Code(s): I50.9 - Heart failure, unspecified Status: Acute Assessment and Plan: Echo as below. CXR on admission showing significant peribronchial thickening with mild pulmonary vascular congestion and a left pleural effusion. BNP 2980. Patient with acute on chronic diastolic CHF. Lasix IV started. Repeat CXR showing no pulmonary edema Continue oral Lasix (4) Complete heart block: Code(s): I44.2 - Atrioventricular block, complete Status: Acute Assessment and Plan: Patient presented with complete heart block. She was on a Toprol XL 300mg daily which was stopped. Echo in Jul 2024 showing EF 60-65%, grade I diastolic dysfunction and moderate [place] Cardiology consulted. Patient remained bradycardic with 2:1 block so PM recommended which she had placed 02/21. She tolerated the procedure well. Continue telemetry and hemodynamic monitoring (5) Atrial fibrillation with RVR: Code(s): I48.91 - Unspecified atrial fibrillation Status: Acute Assessment and Plan: History of AFib with RVR. Anticoagulation on hold for procedure Resume Xarelto 1 week after PPM placement per Cardiology (6) Hyponatremia: Code(s): E87.1 - Hypo-osmolality and hyponatremia Status: Acute Assessment and Plan: Patient with chronic hyponatremia. Na 124 on admission and dropped to 120 Nephrology consulted and appreciate their input. Sodium chloride oral tabs and fluid restriction ordered. Lasix also started Sodium was up to 132 but dropped to 127; slightly better today at 129 Monitor sodium values (7) UTI (urinary tract infection): Qualifiers: Hematuria presence: without hematuria Urinary tract infection type: acute cystitis Qualified Code(s): N30.00 - Acute cystitis without hematuria Code(s): N39.0 - Urinary tract infection, site not specified Status: Acute Assessment and Plan: Recently diagnosed UTI. Remains afebrile. WBC better She completed a course of abx. (8) Constipation: Qualifiers: Constipation type: chronic idiopathic constipation Qualified Code(s): K59.04 - Chronic idiopathic constipation Code(s): K59.00 - Constipation, unspecified Status: Acute Assessment and Plan: Last BM 02/20 after MagCitrate. She is on scheduled lactulose but changed to prn here and miralax scheduled. Enema unsuccessful. MagCitrate once on 02/25 with +BM. Schedule Lactulose. Continue Senna. Plan Chronic Resp Failure - on O2 at 2L chronically. She is at baseline. DVT prophylaxis -SCD. Anticoagulation on hold Code status - DNR Subjective Date/time seen: 02/27/25 14:51 Interval history: 74yo female with HTN, chronic respiratory failure on supplemental O2 (2L NC), CVA, bipolar disorder, anxiety, failure to thrive, GERD, hyperlipidemia, hypertension, chronic hyponatremia, asthma, epilepsy not currently treated with antiepileptic medications and previous left AKA presents here with weakness, lethargy and shortness of breath. Found to have complete heart block, second-degree 2 is to 1 heart block status post permanent pacemaker placement on 02/21/[address] Dominguez. She is very somnolent today. Stil with dry cough and wheezing. Has been receiving DuoNeb regularly past 2 days. RN noted low BP. She is having SOB but no CP. Feels lightheaded. Chronic nausea but eating okay. Exam Narrative: AF 97.8 84/38 -> 123/46 75 20 95% 2L Gen - NARD Chest - clear bilaterally, no wheezing. CV - RRR S1/S2. Telemetry showing mostly paced rhythm with underlying heart black at times Abd - Soft, obese, nontender Ext - trace right pedal edema with left AKA. Neuro - more awake but still somnolent. oriented x4. Skin - Warm and dry Objective Data Vital Signs Vital Signs: Vital Signs - 24 hr 02/26/25 16:11 02/26/25 18:00 02/26/25 20:00 Temperature 97.7 F Pulse Rate 67 72 Respiratory Rate 20 Blood Pressure 113/46 L Pulse Oximetry 98 97 Oxygen Delivery Nasal Cannula Oxygen Flow Rate 2 02/26/25 20:37 02/26/25 20:49 02/26/25 20:50 Temperature 97.8 F Pulse Rate 76 78 Respiratory Rate 18 20 Blood Pressure 153/48 H Pulse Oximetry 100 97 Oxygen Delivery Nasal Cannula Oxygen Flow Rate 2 02/26/25 20:54 02/27/25 00:00 02/27/25 03:25 Temperature 98.5 F Pulse Rate 81 81 54 L Respiratory Rate 20 20 20 Blood Pressure 116/43 L Pulse Oximetry 98 Oxygen Delivery Oxygen Flow Rate 02/27/25 03:34 02/27/25 07:13 02/27/25 09:43 Temperature 97.8 F Pulse Rate 65 96 62 Respiratory Rate 20 18 20 Blood Pressure 156/50 H Pulse Oximetry 98 Oxygen Delivery Oxygen Flow Rate 02/27/25 09:45 02/27/25 09:50 02/27/25 14:05 Temperature Pulse Rate 68 Respiratory Rate 20 Blood Pressure 75/30 L Pulse Oximetry 95 Oxygen Delivery Nasal Cannula Oxygen Flow Rate 2 02/27/25 14:06 02/27/25 14:08 Temperature Pulse Rate 75 75 Respiratory Rate 20 Blood Pressure 99/34 L 84/38 L Pulse Oximetry 95 95 Oxygen Delivery Oxygen Flow Rate Intake/Output Intake/Output: Intake & Output 02/24/25 02/25/25 02/26/25 02/27/25 23:59 23:59 23:59 23:59 Intake Total 2409 986 0830 340 Output Total 675 600 2 200 Balance 946 639 1964 140 Meds/Results Medications: Active Medications Generic Name Dose Route Start Last Admin Trade Name Freq PRN Reason Stop Dose Admin Acetaminophen 650 mg 02/19/25 17:18 02/22/25 09:31 Acetaminophen 325 Mg Tablet PO 650 mg Q6H PRN Administration Mild Pain (1-5) Or Fever Albuterol/Ipratropium 3 ml 02/20/25 00:27 02/27/25 09:41 Ipratropium 0.5 Mg/Albuterol Sulfate 2.5 Mg Ampul.Neb 3 Ml INHALATION 3 ml Q6HRT PRN Administration Wheezing Amlodipine Besylate 10 mg 02/20/25 09:00 02/27/25 09:20 Amlodipine Besylate 10 Mg Tablet PO 10 mg DAILY KELIN Administration Artificial Tears 2 drop 02/20/25 09:00 02/27/25 09:20 Artificial Tears Ophth Soln 15 Ml Bottle EACH EYE 2 drop Q12HR KELIN Administration Atorvastatin Calcium 10 mg 02/20/25 21:00 02/26/25 20:23 Atorvastatin 10 Mg Tablet PO 10 mg HS KELIN Administration Bisacodyl 10 mg 02/20/25 00:05 02/25/25 22:01 Bisacodyl 5 Mg Tablet Ec PO 10 mg HS PRN Administration Constipation Buspirone HCl 10 mg 02/20/25 09:00 02/27/25 09:19 Buspirone Hcl 10 Mg Tablet PO 10 mg Q12HR KELIN Administration Clonazepam 0.5 mg 02/20/25 09:00 02/27/25 09:20 Clonazepam (*Crx) 0.5 Mg Tablet PO 0.5 mg Q12HR KELIN Administration Famciclovir 250 mg 02/20/25 09:00 02/27/25 09:19 Famciclovir 250 Mg Tablet PO 250 mg Q12HR KELIN Administration Famotidine 10 mg 02/20/25 09:00 02/27/25 09:20 Famotidine 10 Mg Tablet PO 10 mg DAILY KELIN Administration Fluticasone Propionate 1 spray 02/20/25 09:00 02/27/25 09:20 Fluticasone Propionate 0.05% Na Spr 16 Gm Btl (*Bkc) NASAL 1 spray DAILY KELIN Administration Furosemide 20 mg 02/26/25 09:00 02/27/25 09:19 Furosemide 20 Mg Tablet PO 20 mg BID KELIN Administration Hydralazine HCl 20 mg 02/20/25 07:43 02/22/25 20:03 Hydralazine Hcl 20 Mg/Ml Vial IV PUSH 20 mg Q4H PRN Administration SBP more than 160 Hydrocortisone 1 applic 02/21/25 16:20 02/22/25 20:13 Hydrocortisone 1% 30 Gm Cream TOPICAL 1 applic TID PRN Administration Itching Irbesartan 300 mg 02/20/25 09:00 02/27/25 09:19 Irbesartan 150 Mg Tablet PO 300 mg QAM KELIN Administration Isosorbide Mononitrate 30 mg 02/22/25 12:10 02/27/25 09:19 Isosorbide Mononitrate 30 Mg Tab.Er.24h PO 30 mg DAILY KELIN Administration Lactulose 30 gm 02/25/25 21:00 02/27/25 09:20 Lactulose 20 Gm/30 Ml Udc PO Not Given Q12HR KELIN Magnesium Citrate 300 ml 02/20/25 00:27 Magnesium Citrate 300 Ml Btl PO DAILY PRN constipation Magnesium Hydroxide 30 ml 02/20/25 00:27 02/24/25 22:52 Magnesium Hydroxide Susp 30 Ml Udc PO 30 ml DAILY PRN Administration constipation Memantine 5 mg 02/20/25 09:00 02/27/25 09:19 Memantine 5 Mg Tablet PO 5 mg Q12HR KELIN Administration Ondansetron HCl 4 mg 02/20/25 06:00 02/27/25 13:46 Ondansetron Hcl Odt 4 Mg Tablet PO 4 mg Q8HR KELIN Administration Polyethylene Glycol 17 gm 02/20/25 11:15 Polyethylene Glycol 3350 17 Gm Powd.Pack PO DAILY PRN Constipation Pregabalin 150 mg 02/24/25 21:00 02/27/25 09:19 Pregabalin (*Crx) 75 Mg Capsule PO 150 mg Q12HR KELIN Administration Senna/Docusate Sodium 2 tab 02/20/25 09:00 02/27/25 09:19 Senna/Docusate Sodium Tablet PO 2 tab Q12HR KELIN Administration Sodium Chloride 1 gm 02/24/25 21:00 02/27/25 09:19 Sodium Chloride 1 Gm Tablet PO 1 gm Q12HR KELIN Administration Spironolactone 25 mg 02/20/25 09:00 02/27/25 09:19 Spironolactone 25 Mg Tablet PO 25 mg DAILY KELIN Administration Tizanidine HCl 2 mg 02/20/25 09:00 02/27/25 09:19 Tizanidine Hcl 2 Mg Tablet PO 2 mg Q12HR KELIN Administration Venlafaxine HCl 37.5 mg 02/20/25 09:00 02/27/25 09:19 Venlafaxine Hcl Xr 37.5 Mg Cap PO 37.5 mg DAILY KELIN Administration Radiology Results: ITS Impressions Chest X-Ray 02/26/25 16:12 IMPRESSION: 1: NO ACUTE CARDIOPULMONARY DISEASE.
[2025-02-27 16:32] LABS: Alveolar/Arterial O2 Gradient 29.7 mmHg; Fractional Inspired Oxygen 28 %; HCO3 ABG 34.6 mEq/l (22.0-26.0); Oxygen Content ABG 12.2 %vol (16.0-22.0); Oxygen Saturation ABG 96.5 % (95.0-100.0); PO2 ABG 93.2 mmHg (80.0-100.0); PO2 FiO2 Ratio Arterial Blood 3.33 %
[2025-02-27 16:38] LABS: Liters per Minute 2.0 LPM; PCO2 ABG 65.0 mmHg (35.0-45.0); Site Drawn LEFT BRACHIAL
[2025-02-27 17:00] LABS: Hematocrit 27.8 % (37.0-47.0); Hemoglobin 8.2 g/dL (12.0-15.0); Immature Granulocyte Percent A 2.1 % (0-0.5); Lymphocytes Absolute Auto 1.13 K/mm3 (0.9-3.2); Mean Corpuscular HGB Conc 29.5 g/dl (32-36); Mean Corpuscular Hemoglobin 27.6 pg (26-34); Mean Corpuscular Volume 93.6 fl (80-100); Nucleated Red Blood Cells Absolute Auto 0.000 K/mm3 (0.0-0.012); Nucleated Red Blood Cells Perc 0.0 % (0.0-0.2); Platelet Count Result 319 k/mm3 (150-375); Red Blood Count 2.97 M/mm3 (4.2-5.4); White Blood Count 8.2 K/mm3 (4.5-10.0)
[2025-02-27 17:11] LABS: Anion Gap 4 mmol/L (4-12); Blood Urea Nitrogen 24 mg/dL (7-17); Calcium 8.0 mg/dL (8.4-10.2); Carbon Dioxide 29 mmol/L (22-30); Chloride 94 mmol/L (98-107); Estimated CRCL calculation 59 ml/min; Estimated Glomerular Filt Rate > 60; Glucose 126 mg/dL (65-110); Potassium 5.8 mmol/L (3.4-5.0); Sodium 127 mmol/L (137-145)
[2025-02-27 17:12] LABS: CRP 6.7 mg/dL (<1.0)
[2025-02-27 17:27] LABS: Procalcitonin 0.2 ng/mL
[2025-02-27 17:31] LABS: Hypochromasia 1+
[2025-02-27 17:32] LABS: Schistocytes None Seen
[2025-02-27] MEDS: SODIUM ZIRCONIUM CYCLOSILICATE 10 GM POWD.PACK PO (20:08)
[2025-02-27] MEDS: ATORVASTATIN 10 MG TABLET PO (22:06)
--- NOTE | 2025-02-27 22:15 | PCRCNOTE ---
Pt refused auto CPAP said she would never wear it. No auto PAP in room.
--- NOTE | 2025-02-27 23:32 | PC.NURSE ---
This patient, Celestina Ewing, was received from [[id number] ] on 02/27/25 at 2320. Patient/family oriented to unit policies and routines.
--- NOTE | 2025-02-27 23:48 | PC.NURSE ---
transferred to room 302 after SBAR tubed and verbal report given
[2025-02-28] VITALS (9 sets, daily range): BP systolic 124–183; BP diastolic 55–81; PULSE 61–98; RESP 16–20; TEMP 35.8–36.9; O2SAT 92–100
--- NOTE | 2025-02-28 01:45 | PC.NURSE ---
PCT & this nurse went into room to turn Pt. Pt. REFUSING to turn at this time and requesting to remain on her back.
[2025-02-28] MEDS: ACETAMINOPHEN 325 MG TABLET 650 MG PO ×2 (04:27→21:01)
[2025-02-28 05:29] LABS: Alveolar/Arterial O2 Gradient 27.2 mmHg; Fractional Inspired Oxygen 28 %; HCO3 ABG 34.4 mEq/l (22.0-26.0); Oxygen Content ABG 12.8 %vol (16.0-22.0); Oxygen Saturation ABG 97.2 % (95.0-100.0); PO2 ABG 99.8 mmHg (80.0-100.0); PO2 FiO2 Ratio Arterial Blood 3.56 %
[2025-02-28 05:37] LABS: Liters per Minute 2.0 LPM; Modified Allen's Test Pass; PCO2 ABG 61.6 mmHg (35.0-45.0); Site Drawn LEFT RADIAL
[2025-02-28] MEDS: ONDANSETRON HCL ODT 4 MG TABLET PO ×3 (05:46→21:01)
[2025-02-28 05:52] LABS: Hematocrit 27.1 % (37.0-47.0); Hemoglobin 8.1 g/dL (12.0-15.0); Immature Granulocyte Percent A 0.5 % (0-0.5); Lymphocytes Absolute Auto 1.08 K/mm3 (0.9-3.2); Mean Corpuscular HGB Conc 29.9 g/dl (32-36); Mean Corpuscular Hemoglobin 27.6 pg (26-34); Mean Corpuscular Volume 92.5 fl (80-100); Nucleated Red Blood Cells Absolute Auto 0.000 K/mm3 (0.0-0.012); Nucleated Red Blood Cells Perc 0.0 % (0.0-0.2); Platelet Count Result 333 k/mm3 (150-375); Red Blood Count 2.93 M/mm3 (4.2-5.4); White Blood Count 6.3 K/mm3 (4.5-10.0)
[2025-02-28 06:16] LABS: Alanine Aminotransferase 14 U/L (6-35); Albumin Level 2.7 g/dL (3.5-5.1); Alkaline Phosphatase 93 U/L (38-126); Anion Gap 1 mmol/L (4-12); Aspartate Amino Transferase 22 U/L (14-36); Bilirubin,Total 0.3 mg/dL (0.2-1.3); Blood Urea Nitrogen 23 mg/dL (7-17); Calcium 8.1 mg/dL (8.4-10.2); Carbon Dioxide 32 mmol/L (22-30); Chloride 92 mmol/L (98-107); Estimated CRCL calculation 64 ml/min; Estimated Glomerular Filt Rate > 60; Glucose 92 mg/dL (65-110); Potassium 5.7 mmol/L (3.4-5.0); Sodium 125 mmol/L (137-145); Total Protein 5.1 g/dL (6.3-8.2)
[2025-02-28 06:18] LABS: Anisocytosis 1+; Hypochromasia 1+; Schistocytes None Seen
[2025-02-28] MEDS: FAMOTIDINE 10 MG TABLET PO (08:15)
[2025-02-28] MEDS: SODIUM CHLORIDE 1 GM TABLET PO ×2 (08:16→20:46)
[2025-02-28] MEDS: SPIRONOLACTONE 25 MG TABLET PO (08:16)
[2025-02-28] MEDS: PREGABALIN (*CRX) 75 MG CAPSULE 150 MG PO ×2 (08:16→20:46)
[2025-02-28] MEDS: FUROSEMIDE 20 MG TABLET PO ×2 (08:16→16:34)
[2025-02-28] MEDS: clonazePAM (*CRX) 0.5 MG TABLET PO ×2 (08:16→20:47)
[2025-02-28] MEDS: TIZANIDINE HCL 2 MG TABLET PO ×2 (08:16→20:46)
[2025-02-28] MEDS: ISOSORBIDE MONONITRATE 30 MG TAB.ER.24H PO (08:16)
[2025-02-28] MEDS: SENNA/DOCUSATE SODIUM TABLET 2 TAB PO ×2 (08:16→20:46)
[2025-02-28] MEDS: LACTULOSE 20 GM/30 ML UDC 30 GM PO ×2 (08:29→20:47)
[2025-02-28] MEDS: FLUTICASONE PROPIONATE 0.05% NA SPR 16 GM BTL (*BKC) 1 SPRAY NASAL (08:31)
[2025-02-28] MEDS: ARTIFICIAL TEARS OPHTH SOLN 15 ML BOTTLE 2 DROP EACH EYE ×2 (08:31→20:46)
[2025-02-28] MEDS: HYDROCORTISONE 1% 30 GM CREAM 1 APPLIC TOPICAL (08:31)
--- NOTE | 2025-02-28 08:39 | PM.IMPN ---
Progress Note: A&P Assessment and Plan (1) Medication adverse effect: Code(s): T50.905A - Adverse effect of unspecified drugs, medicaments and biological substances, initial encounter Status: Acute Assessment and Plan: Patient was more somnolent 02/27. She was recently resumed on her primione at half her home dose but now stated she does not take this. Due to her somnolence, Primidone was stopped. Still somnolent. [place] was stopped Still c/o dry cough but CXR clear. No wheezing and last DuoNeb was 5 hours ago. Continue to hold primidone. Stop [place]. ABG with hypercapnia noted with pCO2 65. Consider backing off her clonazepam (2) Hypertension: Code(s): I10 - Essential (primary) hypertension Status: Acute Assessment and Plan: She was resumed on Norvasc, Spironolactone, Avapro, Imdur. Hydralazine IV available p.r.n. Patient was on a clonidine patch which was stopped Blood pressure still mildly elevated so hydralazine added back at lower dose but became hypotensive Stop hydralazine. Repeat BP. Will tolerate mildly elevated BP going forward. (3) Congestive heart failure: Code(s): I50.9 - Heart failure, unspecified Status: Acute Assessment and Plan: Echo as below. CXR on admission showing significant peribronchial thickening with mild pulmonary vascular congestion and a left pleural effusion. BNP 2980. Patient with acute on chronic diastolic CHF. Lasix IV started. Repeat CXR showing no pulmonary edema Continue oral Lasix (4) Complete heart block: Code(s): I44.2 - Atrioventricular block, complete Status: Acute Assessment and Plan: Patient presented with complete heart block. She was on a Toprol XL 300mg daily which was stopped. Echo in Jul 2024 showing EF 60-65%, grade I diastolic dysfunction and moderate [place] Cardiology consulted. Patient remained bradycardic with 2:1 block so PM recommended which she had placed 02/21. She tolerated the procedure well. Continue telemetry and hemodynamic monitoring (5) Atrial fibrillation with RVR: Code(s): I48.91 - Unspecified atrial fibrillation Status: Acute Assessment and Plan: History of AFib with RVR. Anticoagulation on hold for procedure Resume Xarelto 1 week after PPM placement per Cardiology (6) Hyponatremia: Code(s): E87.1 - Hypo-osmolality and hyponatremia Status: Acute Assessment and Plan: Patient with chronic hyponatremia. Na 124 on admission and dropped to 120 Nephrology consulted and appreciate their input. Sodium chloride oral tabs and fluid restriction ordered. Lasix also started Sodium was up to 132 but dropped to 127; slightly better today at 129 Monitor sodium values (7) UTI (urinary tract infection): Qualifiers: Hematuria presence: without hematuria Urinary tract infection type: acute cystitis Qualified Code(s): N30.00 - Acute cystitis without hematuria Code(s): N39.0 - Urinary tract infection, site not specified Status: Acute Assessment and Plan: Recently diagnosed UTI. Remains afebrile. WBC better She completed a course of abx. (8) Constipation: Qualifiers: Constipation type: chronic idiopathic constipation Qualified Code(s): K59.04 - Chronic idiopathic constipation Code(s): K59.00 - Constipation, unspecified Status: Acute Assessment and Plan: Last BM 02/20 after MagCitrate. She is on scheduled lactulose but changed to prn here and miralax scheduled. Enema unsuccessful. MagCitrate once on 02/25 with +BM. Schedule Lactulose. Continue Senna. Plan Chronic Resp Failure - on O2 at 2L chronically. She is at baseline. Hyperkalemia mild will give a dose of Lokelma DVT prophylaxis -SCD. Anticoagulation on hold Code status - DNR Subjective Date/time seen: 02/28/25 08:39 Interval history: Patient complains of some cough. No chest pain. Shortness of breath is stable. She presented for heart block and had a pacemaker placed on 02/21/2025. Review of Systems Review of Systems: All systems reviewed & are unremarkable except as noted in HPI and below (HPI) Exam Narrative: Gen - NARD Chest - clear bilaterally, no wheezing. CV - RRR S1/S2. Telemetry showing mostly paced rhythm with underlying heart black at times Abd - Soft, obese, nontender Ext - trace right pedal edema with left AKA. Neuro -alert and oriented x4. Skin - Warm and dry Objective Data Vital Signs Vital Signs: Vital Signs - 24 hr 02/27/25 09:43 02/27/25 09:45 02/27/25 09:50 Temperature Pulse Rate 62 68 Respiratory Rate 20 20 Blood Pressure Pulse Oximetry 95 Oxygen Delivery Nasal Cannula Oxygen Flow Rate 2 Fraction of Inspired Oxygen 02/27/25 14:05 02/27/25 14:06 02/27/25 14:08 Temperature Pulse Rate 75 75 Respiratory Rate 20 Blood Pressure 75/30 L 99/34 L 84/38 L Pulse Oximetry 95 95 Oxygen Delivery Oxygen Flow Rate Fraction of Inspired Oxygen 02/27/25 15:07 02/27/25 16:00 02/27/25 20:00 Temperature 97.9 F 98 F Pulse Rate 80 96 101 H Respiratory Rate 15 16 Blood Pressure 123/46 L 154/58 H 166/69 H Pulse Oximetry 97 96 98 Oxygen Delivery Oxygen Flow Rate Fraction of Inspired Oxygen 02/27/25 20:00 02/27/25 21:25 02/27/25 23:41 Temperature 97.4 F L Pulse Rate 90 Respiratory Rate 20 20 Blood Pressure 109/47 L Pulse Oximetry 98 95 97 Oxygen Delivery Nasal Cannula Nasal Cannula Oxygen Flow Rate 2 2 Fraction of Inspired Oxygen 28 02/28/25 05:05 Temperature 97.5 F L Pulse Rate 97 Respiratory Rate 16 Blood Pressure 183/68 H Pulse Oximetry 100 Oxygen Delivery Oxygen Flow Rate Fraction of Inspired Oxygen Intake/Output Intake/Output: Intake & Output 02/25/25 02/26/25 02/27/25 02/28/25 23:59 23:59 23:59 23:59 Intake Total 780 1170 780 200 Output Total 600 2 1150 300 Balance 180 1168 -370 -100 Meds/Results Medications: Active Medications Generic Name Dose Route Start Last Admin Trade Name Freq PRN Reason Stop Dose Admin Acetaminophen 650 mg 02/19/25 17:18 02/28/25 04:27 Acetaminophen 325 Mg Tablet PO 650 mg Q6H PRN Administration Mild Pain (1-5) Or Fever Albuterol/Ipratropium 3 ml 02/20/25 00:27 02/27/25 09:41 Ipratropium 0.5 Mg/Albuterol Sulfate 2.5 Mg Ampul.Neb 3 Ml INHALATION 3 ml Q6HRT PRN Administration Wheezing Amlodipine Besylate 10 mg 02/20/25 09:00 02/28/25 08:16 Amlodipine Besylate 10 Mg Tablet PO 10 mg DAILY KELIN Administration Artificial Tears 2 drop 02/20/25 09:00 02/28/25 08:31 Artificial Tears Ophth Soln 15 Ml Bottle EACH EYE 2 drop Q12HR KELIN Administration Atorvastatin Calcium 10 mg 02/20/25 21:00 02/27/25 22:06 Atorvastatin 10 Mg Tablet PO 10 mg HS KELIN Administration Bisacodyl 10 mg 02/20/25 00:05 02/25/25 22:01 Bisacodyl 5 Mg Tablet Ec PO 10 mg HS PRN Administration Constipation Buspirone HCl 10 mg 02/20/25 09:00 02/28/25 08:16 Buspirone Hcl 10 Mg Tablet PO 10 mg Q12HR KELIN Administration Clonazepam 0.5 mg 02/20/25 09:00 02/28/25 08:16 Clonazepam (*Crx) 0.5 Mg Tablet PO 0.5 mg Q12HR KELIN Administration Famciclovir 250 mg 02/20/25 09:00 02/27/25 22:06 Famciclovir 250 Mg Tablet PO 250 mg Q12HR KELIN Administration Famotidine 10 mg 02/20/25 09:00 02/28/25 08:15 Famotidine 10 Mg Tablet PO 10 mg DAILY KELIN Administration Fluticasone Propionate 1 spray 02/20/25 09:00 02/28/25 08:31 Fluticasone Propionate 0.05% Na Spr 16 Gm Btl (*Bkc) NASAL 1 spray DAILY KELIN Administration Furosemide 20 mg 02/26/25 09:00 02/28/25 08:16 Furosemide 20 Mg Tablet PO 20 mg BID KELIN Administration Hydralazine HCl 20 mg 02/20/25 07:43 02/28/25 06:23 Hydralazine Hcl 20 Mg/Ml Vial IV PUSH 20 mg Q4H PRN Administration SBP more than 160 Hydrocortisone 1 applic 02/21/25 16:20 02/28/25 08:31 Hydrocortisone 1% 30 Gm Cream TOPICAL 1 applic TID PRN Administration Itching Irbesartan 300 mg 02/20/25 09:00 02/27/25 09:19 Irbesartan 150 Mg Tablet PO 300 mg QAM KELIN Administration Isosorbide Mononitrate 30 mg 02/22/25 12:10 02/28/25 08:16 Isosorbide Mononitrate 30 Mg Tab.Er.24h PO 30 mg DAILY KELIN Administration Lactulose 30 gm 02/25/25 21:00 02/28/25 08:29 Lactulose 20 Gm/30 Ml Udc PO 30 gm Q12HR KELIN Administration Magnesium Citrate 300 ml 02/20/25 00:27 Magnesium Citrate 300 Ml Btl PO DAILY PRN constipation Magnesium Hydroxide 30 ml 02/20/25 00:27 02/24/25 22:52 Magnesium Hydroxide Susp 30 Ml Udc PO 30 ml DAILY PRN Administration constipation Memantine 5 mg 02/20/25 09:00 02/27/25 22:06 Memantine 5 Mg Tablet PO 5 mg Q12HR KELIN Administration Ondansetron HCl 4 mg 02/20/25 06:00 02/28/25 05:46 Ondansetron Hcl Odt 4 Mg Tablet PO 4 mg Q8HR KELIN Administration Polyethylene Glycol 17 gm 02/20/25 11:15 Polyethylene Glycol 3350 17 Gm Powd.Pack PO DAILY PRN Constipation Pregabalin 150 mg 02/24/25 21:00 02/28/25 08:16 Pregabalin (*Crx) 75 Mg Capsule PO 150 mg Q12HR KELIN Administration Senna/Docusate Sodium 2 tab 02/20/25 09:00 02/28/25 08:16 Senna/Docusate Sodium Tablet PO 2 tab Q12HR KELIN Administration Sodium Chloride 1 gm 02/24/25 21:00 02/28/25 08:16 Sodium Chloride 1 Gm Tablet PO 1 gm Q12HR KELIN Administration Spironolactone 25 mg 02/20/25 09:00 02/28/25 08:16 Spironolactone 25 Mg Tablet PO 25 mg DAILY KELIN Administration Tizanidine HCl 2 mg 02/20/25 09:00 02/28/25 08:16 Tizanidine Hcl 2 Mg Tablet PO 2 mg Q12HR KELIN Administration Venlafaxine HCl 37.5 mg 02/20/25 09:00 02/27/25 09:19 Venlafaxine Hcl Xr 37.5 Mg Cap PO 37.5 mg DAILY KELIN Administration Radiology Results: ITS Impressions Chest X-Ray 02/26/25 16:12 IMPRESSION: 1: NO ACUTE CARDIOPULMONARY DISEASE. Labs Labs: Laboratory Results - last 24 hr 02/27/25 02/27/25 02/28/25 16:28 16:47 05:14 WBC 8.2 6.3 RBC 2.97 L 2.93 L Hgb 8.2 L 8.1 L Hct 27.8 L 27.1 L MCV 93.6 92.5 MCH 27.6 27.6 MCHC 29.5 L 29.9 L RDW 17.2 H 17.0 H Plt Count 319 333 MPV 10.3 10.2 Immature Gran % (Auto) 2.1 H 0.5 Neut % (Auto) 58.5 52.4 Lymph % (Auto) 13.8 L 17.1 L [place] % (Auto) 16.1 H 18.7 H Eos % (Auto) 9.0 H 10.8 H Baso % (Auto) 0.5 0.5 Lymph # (Auto) 1.13 1.08 [place] # (Auto) 1.3 H 1.2 H Eos # (Auto) 0.7 H 0.7 H Baso # (Auto) 0.0 0.0 Abs Immat Gran (auto) 0.17 H 0.03 Absolute Neuts (auto) 4.8 3.3 Absolute Nucleated RBC 0.000 0.000 Band Neutrophils % Not Reportable Not Reportable Nucleated RBC % 0.0 0.0 Platelet Estimate Adequate Adequate Hypochromasia 1+ 1+ Anisocytosis 1+ Schistocytes None seen None seen Puncture Site Left brachial Left radial ABG pH 7.344 L 7.365 ABG pCO2 65.0 H* 61.6 H* ABG pO2 93.2 99.8 ABG PO2/FiO2 Ratio 3.33 3.56 ABG HCO3 34.6 H 34.4 H ABG O2 Saturation 96.5 97.2 ABG O2 Content 12.2 L 12.8 L ABG Base Excess 7.6 7.7 A-a Gradient 29.7 27.2 Oxyhemoglobin 95.9 96.6 Total Hemoglobin 8.9 L 9.3 L O2 Delivery Device Nasal cannula Nasal cannula O2 Liters/Min 2.0 2.0 FiO2 28 28 Sodium 127 L 125 L Potassium 5.8 H 5.7 H Chloride 94 L 92 L Carbon Dioxide 29 32 H Anion Gap 4 1 L BUN 24 H 23 H Creatinine 0.84 0.75 Estim Creat Clear Calc 59 64 Estimated GFR > 60 > 60 Glucose 126 H 92 Lactic Acid 0.6 L Calcium 8.0 L 8.1 L Total Bilirubin 0.3 AST 22 ALT 14 Alkaline Phosphatase 93 C-Reactive Protein 6.7 H Total Protein 5.1 L Albumin 2.7 L Procalcitonin 0.2 Random Cortisol 13.20
[2025-02-28] MEDS: IPRATROPIUM 0.5 MG/ALBUTEROL SULFATE 2.5 MG AMPUL.NEB 3 ML INHALATION ×3 (08:44→21:15)
[2025-02-28] MEDS: VENLAFAXINE HCL XR 37.5 MG CAP PO (09:19)
[2025-02-28] MEDS: IRBESARTAN 150 MG TABLET 300 MG PO (09:19)
[2025-02-28] MEDS: MEMANTINE 5 MG TABLET PO ×2 (09:19→20:45)
[2025-02-28] MEDS: FAMCICLOVIR 250 MG TABLET PO ×2 (09:19→20:46)
[2025-02-28] MEDS: SODIUM ZIRCONIUM CYCLOSILICATE 10 GM POWD.PACK PO (10:43)
[2025-02-28] MEDS: BENZOCAINE/MENTHOL (*BKC) 18 EA LOZENGE 1 LOZENGE PO (13:58)
[2025-02-28] MEDS: FUROSEMIDE INJ 40 MG/4 ML VIAL IV PUSH (13:59)
--- NOTE | 2025-02-28 19:00 | PC.NURSE ---
On 02/28/25, the VISITOR SERVICES ASSISTANT, Anca Sanabria, provided care and completed [place] documentation on this patient. I have reviewed the VISITOR SERVICES ASSISTANT's documentation and agree with the findings.
[2025-02-28] MEDS: ATORVASTATIN 10 MG TABLET PO (20:46)
[2025-03-01] VITALS (7 sets, daily range): BP systolic 112–146; BP diastolic 51–69; PULSE 89–109; RESP 12–16; TEMP 36.4–36.9; O2SAT 97–99
[2025-03-01] MEDS: DIPHENHYDRAMINE 1%/ZINC 0.1% CREAM 30 GM TUBE 1 APPLIC TOPICAL ×2 (00:09→11:46)
[2025-03-01] MEDS: IPRATROPIUM 0.5 MG/ALBUTEROL SULFATE 2.5 MG AMPUL.NEB 3 ML INHALATION ×2 (02:38→11:03)
[2025-03-01] MEDS: ONDANSETRON HCL ODT 4 MG TABLET PO (05:27)
[2025-03-01 06:21] LABS: Hematocrit 27.3 % (37.0-47.0); Hemoglobin 8.1 g/dL (12.0-15.0); Immature Granulocyte Percent A 0.2 % (0-0.5); Lymphocytes Absolute Auto 1.36 K/mm3 (0.9-3.2); Mean Corpuscular HGB Conc 29.7 g/dl (32-36); Mean Corpuscular Hemoglobin 27.2 pg (26-34); Mean Corpuscular Volume 91.6 fl (80-100); Nucleated Red Blood Cells Absolute Auto 0.000 K/mm3 (0.0-0.012); Nucleated Red Blood Cells Perc 0.0 % (0.0-0.2); Platelet Count Result 334 k/mm3 (150-375); Red Blood Count 2.98 M/mm3 (4.2-5.4); White Blood Count 5.5 K/mm3 (4.5-10.0)
[2025-03-01 06:41] LABS: Alanine Aminotransferase 14 U/L (6-35); Albumin Level 3.1 g/dL (3.5-5.1); Alkaline Phosphatase 98 U/L (38-126); Anion Gap 5 mmol/L (4-12); Aspartate Amino Transferase 23 U/L (14-36); Bilirubin,Total < 0.1 mg/dL (0.2-1.3); Blood Urea Nitrogen 21 mg/dL (7-17); Calcium 8.2 mg/dL (8.4-10.2); Carbon Dioxide 34 mmol/L (22-30); Chloride 94 mmol/L (98-107); Estimated CRCL calculation 52 ml/min; Estimated Glomerular Filt Rate 59; Glucose 86 mg/dL (65-110); Magnesium 2.2 mg/dL (1.6-2.3); Potassium 4.7 mmol/L (3.4-5.0); Sodium 133 mmol/L (137-145); Total Protein 6.1 g/dL (6.3-8.2)
[2025-03-01 06:58] LABS: Hypochromasia 1+; Schistocytes None Seen
[2025-03-01] MEDS: SENNA/DOCUSATE SODIUM TABLET 2 TAB PO (08:57)
[2025-03-01] MEDS: ARTIFICIAL TEARS OPHTH SOLN 15 ML BOTTLE 2 DROP EACH EYE (08:57)
[2025-03-01] MEDS: FAMOTIDINE 10 MG TABLET PO (08:57)
[2025-03-01] MEDS: FLUTICASONE PROPIONATE 0.05% NA SPR 16 GM BTL (*BKC) 1 SPRAY NASAL (08:57)
[2025-03-01] MEDS: SODIUM CHLORIDE 1 GM TABLET PO (08:58)
[2025-03-01] MEDS: IRBESARTAN 150 MG TABLET 300 MG PO (08:58)
[2025-03-01] MEDS: FUROSEMIDE 20 MG TABLET PO (08:58)
[2025-03-01] MEDS: FAMCICLOVIR 250 MG TABLET PO (08:58)
[2025-03-01] MEDS: MEMANTINE 5 MG TABLET PO (08:58)
[2025-03-01] MEDS: ISOSORBIDE MONONITRATE 30 MG TAB.ER.24H PO (08:58)
[2025-03-01] MEDS: SPIRONOLACTONE 25 MG TABLET PO (09:00)
[2025-03-01] MEDS: clonazePAM (*CRX) 0.5 MG TABLET PO (09:00)
[2025-03-01] MEDS: TIZANIDINE HCL 2 MG TABLET PO (09:00)
[2025-03-01] MEDS: VENLAFAXINE HCL XR 37.5 MG CAP PO (09:03)
[2025-03-01] MEDS: LACTULOSE 20 GM/30 ML UDC 30 GM PO (09:03)
[2025-03-01] MEDS: PREGABALIN (*CRX) 75 MG CAPSULE 150 MG PO (09:03)
[2025-03-01] MEDS: ACETAMINOPHEN 325 MG TABLET 650 MG PO (09:09)
--- NOTE | 2025-03-01 11:39 | PM.DS ---
DS: Admitting Diagnosis Discharge Date 03/01/25 Admitting Diagnosis Weakness DS: Discharge Diagnosis Discharge Diagnosis (1) Complete heart block: Code(s): I44.2 - Atrioventricular block, complete Status: Acute DS: Summary Hospital Course Hospital Course: [facility] [address] [place] [address] History & Physical Report Signed Patient: Celestina Ewing MR#: [id number] : 1950 Acct:[id number] Age: 74 ADM Date: 02/19/25 Loc: [facility]ICU ICU-9 74 y/o F with PMH of chronic respiratory failure on supplemental O2 (2L NC), CVA, bipolar disorder, anxiety, failure to thrive, GERD, hyperlipidemia, hypertension, chronic hyponatremia, asthma, epilepsy not currently treated with antiepileptic medications and previous left BKA presents here with weakness, lethargy and shortness of breath. The patient presents here from [facility] via EMS on 02/19 for further evaluation of lethargy, weakness, and shortness of breath. She reports onset of the symptoms on Wednesday/Wednesday. There also accompanied by nausea however this is chronic secondary to gastroparesis. She denies chest pain, fever, chills, body aches, dyaruia, hematuria, urinary frequency or abdominal pain. Of note, the patient was found to be significantly bradycardic in the mid 30s upon arrival. She has no history of bradycardia or heart block. The patient was also recently discharged from [facility] where she had been treated for a urinary tract infection, hyponatremia, hypokalemia and hypocalcemia from 02/09-02/13. Has hx of chronic hyponatremia, reports she has been compliant with a fluid restriction. Initial VS at presentation: 97.6? F, HR 36, R 17, 126/83, and 98% on 2L nasal cannula. ED workup showed: No leukocytosis, hemoglobin 8.3, INR 1.3, sodium 124 (133 on 02/13), creatinine 0.62 and GFR >60, calcium 8.2/albumin 3.1, initial troponin 0.016, and TSH 2.44. CXR showed significant peribronchial thickening with mild pulmonary vascular congestion and a left-sided pleural effusion. Initial EKG showed AFib with slow ventricular response, voltage criteria for LVH, rate 36 (awaiting formal read). Cardiology was consulted, Metoprolol was discontinued and patient underwent pacemaker placement. Patient was noted to be hypersomnolent and some of her medications including Primidone and [place] were held, it did appear her symptoms improved markedly. However this morning patient vociferously demanded her meds be reinstated. She declined any adjustment inclduing alternatives and/or reductions. Patient discharged back to [place], will continue follow up with PCP in 3-5 days F/u with cardiology as instructed Time Spent with Patient Time attestation: Total time spent providing and/or coordinating discharge services: DS: Data Data Completed and Pending Labs on day of discharge: Labs from last 24 hours 03/01/25 05:37 WBC 5.5 RBC 2.98 L Hgb 8.1 L Hct 27.3 L MCV 91.6 MCH 27.2 MCHC 29.7 L RDW 17.2 H Plt Count 334 MPV 10.2 Immature Gran % (Auto) 0.2 Neut % (Auto) 47.0 Lymph % (Auto) 24.5 [place] % (Auto) 19.5 H Eos % (Auto) 8.1 H Baso % (Auto) 0.7 Lymph # (Auto) 1.36 [place] # (Auto) 1.1 H Eos # (Auto) 0.5 H Baso # (Auto) 0.0 Abs Immat Gran (auto) 0.01 Absolute Neuts (auto) 2.6 Absolute Nucleated RBC 0.000 Band Neutrophils % Not Reportable Nucleated RBC % 0.0 Platelet Estimate Adequate Hypochromasia 1+ Schistocytes None seen Sodium 133 L Potassium 4.7 Chloride 94 L Carbon Dioxide 34 H Anion Gap 5 BUN 21 H Creatinine 0.93 Estim Creat Clear Calc 52 Estimated GFR 59 Glucose 86 Calcium 8.2 L Magnesium 2.2 Total Bilirubin < 0.1 L AST 23 ALT 14 Alkaline Phosphatase 98 Total Protein 6.1 L Albumin 3.1 L Discharge Plan Discharge Attending physician on discharge: Jose Groves Consulting providers: Kathy Lott; Hamilton Sin; Xi Rodgers Discharging Clinician: Jose Groves Anticipated Discharge Date/Time: 03/01/25 11:30 Patient Disposition: [place] Intermediate/Asst Living Activity: as tolerated Diet: as tolerated and heart healthy Discharge Instructions: [facility] Cardiology [address] [place] [address] DISCHARGE INSTRUCTIONS - POST [employer] PACEMAKER Follow Up You will need a 1 week post-procedure follow-up appointment with us. Please call us at to schedule this appointment if one was not made for you at the time of your discharge from the hospital. What To Expect At Home ? Bruising of the trunk, groin and leg around the puncture site is normal and should resolve in a few days. ? You will be sent home with a bandage over the area which can typically be removed the day after the procedure. ? Shower as usual after the bandages are removed. You may gently wash the area with soap and water but do not scrub the puncture site. ? If you discontinued any medications pre-procedure, resume taking them unless told otherwise by your physician upon discharge from the hospital. ? Do not lift over 10 lbs. for 5 days post-procedure. ? You may resume physical activity after 1-2 days but avoid any strenuous activity such as exercise for 1 week post-procedure. ? Do not take a tub bath, Jacuzzi or swim for 7 days. ? Discuss with your physician prior to discharge about when it is appropriate for you to return to work. Call If You Experience: ? Significant redness, heat, swelling, drainage or severe pain at your puncture site. If any bleeding occurs, hold direct pressure at the site with gauze or a Band-Aid. If the bleeding continues past 10 minutes, call your physician and seek immediate medical attention. ? Fever of 100 degrees or higher. A high temperature can be early signs of infection. Patient Instructions: Antibiotic Form, Rivaroxaban (By mouth), Heart Block (DC), Leadless Pacemaker (DC) Patient Language: German Stand Alone Forms: General Discharge Information Follow-up/Referrals: Xi Rodgers MD [Physician] - (F/u with Nephrology as instructed ) UNKNOWN,DOCTOR [Primary Care Provider] - (F/u with PCP in 3-5 days ) Kathy Lott MD [Physician] - (F/u with cardiology as instructed ) Discharge Medications: New furosemide 20 mg Tablet 20 mg PO BID 30 Days Qty: 60 0RF Continued docusate sodium 100 mg Tablet 200 mg PO BID isosorbide mononitrate 30 mg tablet extended release 24 hr 30 mg PO DAILY lidocaine [Lidoderm] 5 % adhesive patch,medicated 2 patch topical HS Patient Comments: left shoulder Rx Instructions: leave on most painful area for up to 12 hrs magnesium hydroxide [Gentle Laxative (mag hydrox)] 400 mg/5 mL suspension 30 ml PO DAILY PRN (Reason: constipation) Xarelto 20 mg Tablet 20 mg PO DAILY@1700 Qty: 60 0RF oxycodone-acetaminophen 5-325 mg Tablet 1 tablet PO Q8H PRN (Reason: Pain Rated 7-10) Qty: 10 0RF irbesartan 150 mg Tablet 300 mg PO QAM Qty: 30 0RF primidone 50 mg tablet See Rx Instructions .ROUTE .COMPLEX Rx Instructions: 200 MG PO BID; spironolactone 25 mg tablet 25 mg PO DAILY venlafaxine 37.5 mg capsule,extended release 24hr 37.5 mg PO DAILY zolpidem 5 mg tablet 5 mg PO HS buspirone 10 mg tablet 10 mg PO Q12H clonazepam 0.5 mg tablet 0.5 mg PO Q12H magnesium citrate Solution 300 ml PO DAILY PRN (Reason: constipation) lactulose [Enulose] 10 gram/15 mL solution 30 g PO BID famciclovir 250 mg tablet 250 mg PO Q12H atorvastatin [Lipitor] 10 mg tablet 10 mg PO HS sennosides-docusate sodium [Senna Plus] 8.6-50 mg tablet 2 tab-cap PO BID Artificial Tears(pvalch-povid) 0.5-0.6 % drops 2 drp EACH EYE BID PRN (Reason: dry eye(s)) clonidine 0.1 mg/24 hr Patch Weekly 1 patch transdermal WEEKLY Qty: 4 0RF tizanidine 2 mg tablet 2 mg PO Q12H famotidine [Heartburn Relief (famotidine)] 10 mg Tablet 10 mg PO DAILY ipratropium-albuterol 0.5 mg-3 mg(2.5 mg base)/3 mL Solution For Nebulization 3 ml inhalation Q6HRT PRN (Reason: Wheezing) Qty: 30 0RF hydralazine 50 mg Tablet 50 mg PO Q8HR Qty: 30 0RF cefdinir 300 mg capsule 300 mg PO Q12H Qty: 10 0RF Patient Comments: Order is for 02/16/25-02/26/25 fluticasone propionate 50 mcg/actuation [place],Suspension 1 spray INTRANASAL DAILY ondansetron HCl 4 mg tablet 4 mg PO TID amlodipine 10 mg tablet 10 mg PO DAILY bisacodyl [Dulcolax (bisacodyl)] 5 mg Tablet,Delayed Release (Dr/Ec) 10 mg PO HS PRN (Reason: Constipation) memantine 5 mg tablet 5 mg PO BID guaifenesin [Mucinex] 1,200 mg Tablet Extended Release 12hr 1,200 mg PO Q12H pregabalin [Lyrica] 150 mg Capsule 150 mg PO BID Qty: 14 0RF polyethylene glycol 3350 17 gram/dose powder 17 g PO DAILY polyvinyl alcohol [Artificial Tears (polyvin alc)] 1.4 % drops 2 drp EACH EYE BID sodium chloride 1,000 mg tablet,soluble 1,000 mg PO BID Discontinued metoprolol succinate [Toprol XL] 100 mg Tablet Extended Release 24 Hr 300 mg PO QAM Date of admission: 02/20/25 08:55 Primary Care Provider: UNKNOWN,DOCTOR Admitting Provider: Bhavik Minaya Attending physician on admission: Bhavik Minaya Condition: Critical
== END 2025-03-01 14:46 | DRG 228 ==
LOC: ANHED 16:52 → ANHICU 16:59 → ANHIMU 02-23 19:05 → ANH3MEDSUR 02-27 23:18
PROVIDERS: Family Medicine; Internal Medicine; Specialist; Student in an Organized Health Care Education/Training Program; Admitting Provider Internal Medicine; Emergency Provider Emergency Medicine; Visit Provider Internal Medicine
PROC: 02HK3NZ Insertion of Intracardiac Pacemaker into Right Ventricle, Percutaneous Approach (ICD-10-PCS; CPT 33274; principal; 2025-02-21 11:30)
DX: I44.2 Atrioventricular block, complete (principal); I50.33 Acute on chronic diastolic (congestive) heart failure; E87.1 Hypo-osmolality and hyponatremia; J96.11 Chronic respiratory failure with hypoxia; N39.0 Urinary tract infection, site not specified; I11.0 Hypertensive heart disease with heart failure; E87.5 Hyperkalemia; E11.43 Type 2 diabetes mellitus with diabetic autonomic (poly)neuropathy; E78.5 Hyperlipidemia, unspecified; K21.9 Gastro-esophageal reflux disease without esophagitis; K57.30 Diverticulosis of large intestine without perforation or abscess without bleeding; K59.00 Constipation, unspecified; T50.905A Adverse effect of unspecified drugs, medicaments and biological substances, initial encounter; G47.33 Obstructive sleep apnea (adult) (pediatric); F41.9 Anxiety disorder, unspecified; F31.9 Bipolar disorder, unspecified; Z96.611 Presence of right artificial shoulder joint; Z89.512 Acquired absence of left leg below knee; Z79.01 Long term (current) use of anticoagulants; Z86.73 Personal history of transient ischemic attack (TIA), and cerebral infarction without residual deficits; Z87.442 Personal history of urinary calculi; Z99.81 Dependence on supplemental oxygen
CPT/HCPCS: 33274; 36415; 36600; 71045; 71046; 80048; 80053; 80069; 81001; 82533; 82805; 82948; 83605; 83690; 83735; 83880; 84132; 84145; 84443; 84484; 85018; 85025; 85027; 85610; 85730; 86140; 87641; 93005; 94640; 96374; 96375; 99285; A9270; C1769; C1786; C1894; G0378; J0360; J0461; J1200; J1610; J1644; J1938; J2003; J2250; J2919; J3010; J3475; J7030; J7040

== ENCOUNTER 2025-03-27 11:39 | Inpatient (IN) | payer MEDICARE, MEDICAID, SELFPAY ==
[2025-03-27] VITALS (15 sets, daily range): BP systolic 96–182; BP diastolic 49–84; PULSE 69–99; RESP 10–18; TEMP 36.7–37; O2SAT 98–100; BMI 38.0
--- NOTE | ~2025-03-27 | CT_ITS ---
EXAMINATION: CT brain wo con DATE: 03/28/2025 18:32 INDICATION: Syncope TECHNIQUE: Computed tomography (CT) of the head was performed without intravenous contrast. The dose-length product was 605.33 mGy-cm. Automated exposure control and iterative reconstruction technique were employed. COMPARISON: CT dated 02/08/2025 FINDINGS: There are chronic bilateral cerebellar infarctions. Stable pituitary mass, likely benign. Generalized atrophy. There are scattered mild periventricular and subcortical white matter changes, most likely related to small vessel ischemic disease (microangiopathy). No acute intracranial hemorrhag e, infarction, mass or mass effect. No ventriculomegaly or midline shift. Paranasal sinuses and mastoids are pneumatized. IMPRESSION: 1. No acute intracranial abnormality. Reviewed, dictated and finalized at location O.
--- NOTE | ~2025-03-27 | US_ITS ---
EXAMINATION: US retroperitoneal duplex ltd DATE: 03/29/2025 18:00 CDT INDICATION: Accelerated hypertension. TECHNIQUE: Sonographic imaging of the kidneys was performed with a 3.5 MHz transducer. Retroperitoneal duplex sonogram of the renal arteries also obtained. Limited study due to patient body habitus. FINDINGS: No focal flow abnormalities are seen in the renal arteries on color Doppler. The peak systolic velocity ranges of the right and left renal arteries and aorta are 43 cm per second, 44 cm per second, and 124 cm per second, respectively. The velocities and renal to aortic ratios are within normal limits. IMPRESSION: 1. No Doppler evidence of renal artery stenosis. Limited study. Reviewed, dictated and finalized at location O.
--- NOTE | ~2025-03-27 | XR_ITS ---
EXAMINATION: XR chest 1V portable 03/27/2025 12:16 INDICATION: Weakness. Low blood pressure TECHNIQUE:A single portable AP upright frontal image of the chest was obtained. COMPARISON: 03/01/2025 FINDINGS: The lungs are clear. The cardiomediastinal silhouette is within normal limits. There are no pleural effusions. There is no pneumothorax suspected. IMPRESSION: 1: NO ACUTE CARDIOPULMONARY DISEASE. Reviewed, dictated and finalized at location Q.
--- NOTE | ~2025-03-27 | US_ITS ---
EXAMINATION: US carotid duplex BI DATE: 03/28/2025 18:50 INDICATION: Syncope TECHNIQUE: Grayscale, color Doppler, and pulsed Doppler images of the cervical carotid arteries were obtained. The degree of vessel stenosis is placed in one of the following categories: normal, <50%, 50-69%, >=70% but less than near- occlusion, near-occlusion, or total occlusion. Note that percent stenosis relative to normal distal artery lumen diameter is indirectly measured from velocity measurements as described by Andrés, et al. Radiology 2003; 229:340-346. Notes: Normal: Peak systolic velocity <125 centimeters/sec and no plaque <50%. Peak systolic velocity <125 (EDV <40; ICA/CCA PSV ratio <2.0; used these factors only a tandem lesions or low cardiac output or contralateral disease) 50-69 %: PSV 125-230 (EDV 40-100; ratio 2-4) >= 70% but less than near occlusion: PSV greater than 230 (EDV > 100; ratio> 4.0) Near Occlusion: PSV that is variable; markedly narrowed lumen Occlusion: Absent flow on color/spectral Doppler and no lumen on jerome scale. COMPARISON: None. FINDINGS: RIGHT: The right common carotid artery (CCA) peak systolic velocity (PSV) is 152 cm/s. The right internal carotid artery (ICA) PSV is 124 cm/s. The right ICA end- diastolic velocity (EDV) is 33 cm/s. The right ICA/CCA PSV ratio is 0.8. The external carotid artery (ECA) PSV is 215 cm/s. There is antegrade flow in the right vertebral artery. LEFT: The left CCA PSV is 102 cm/s. The left ICA PSV is 90 cm/s. The left ICA EDV is 18 cm/s. The left ICA/CCA PSV ratio is 0.9. The ECA PSV is 284 cm/s. There is antegrade flow in the left vertebral artery. IMPRESSION: 1. Less than 50% stenosis in the right internal carotid artery by sonographic criteria. 2. Less than 50% stenosis in the left internal carotid artery by sonographic criteria. Reviewed, dictated and finalized at location O. IMPRESSION: 1. Less than 50% stenosis in the right internal carotid artery by sonographic anuja delaney. 2. Less than 50% stenosis in the left internal carotid artery by sonographic mojgan nayak.
--- NOTE | 2025-03-27 11:49 | ECG_ITS ---
Test Date: 2025-03-27 11:53:22 Measurements Intervals [place] Rate: 70 P: 15 ND: 171 QRS: -26 QRSD: 95 T: 12 QT: 411 QTc: 445 Interpretive Statements SINUS RHYTHM BORDERLINE LEFT AXIS DEVIATION [QRS AXIS < -20] VOLTAGE CRITERIA FOR LVH [MEETS CRITERIA IN ONE OF: R(aVL), S(V1), R(V5), R(V5/V6)+S(V1)] Compared to ECG 02/21/2025 16:08:31 Left ventricular hypertrophy now present Ventricular-paced complex(es) or rhythm no longer present Electronically Signed On 03-27-2025 12:04:43 CDT by Daniel Raines M.D.
--- OUTSIDE RECORDS SUMMARY | 2025-03-27 12:09 | XMS_ITS | Encounter Summary ---
Author Organization [facility] Facility Care Team Providers Care Med Surg Nurse Name Role Phone Hernando Velasquez MD Primary Care Provider [phone] Jose Manuel Gruber MD Unavailable [phone] Bernardo Edwards MD Primary Care Provider [phone] Hernando Velasquez MD Primary Care Provider [phone] Bernardo Edwards MD Primary Care Provider [phone] Bernardo Edwards MD Primary Care Provider [phone] Hernando Velasquez MD Primary Care Provider [phone] Encounter Details Date Type Department Care Team (Latest Contact Info) Description 07/12/2016 Orders Only [facility] CLINCONV ProviderLucille MD [address] [place] [id number] Social History Tobacco Use Types Packs/Day [...] Comments SCAN - LABS 07/23/2016 12:00 AM SKEIN WINDER documented in this encounter Results * SCAN - LABS (07/23/2016 12:00 AM SKEIN WINDER) Narrative 07/23/2016 12:00 AM SKEIN WINDER Ordered by an unspecified provider. us Historical [...] documented as of this encounter Care Teams Med Surg Nurse Relationship Specialty Start Date End Date Hernando Velasquez MD PCP - General 12/23/18 06/13/19 Bernardo Edwards MD [address] [place] [address] PCP - General 07/05/20 07/06/20 Hernando Velasquez MD PCP - General 07/07/20 07/07/20 Bernardo Edwards MD [address] [place] [address] PCP - General 07/08/20 01/06/22 Bernardo Edwards MD [address] [place] [address] PCP - General 06/14/19 07/04/20 Hernando Velasquez MD PCP - General Internal Medicine 01/07/22 Jose Manuel Gruber MD Fellow Orthopedic Surgery 07/06/19 documented as of this encounter
--- OUTSIDE RECORDS SUMMARY | 2025-03-27 12:10 | XMS_ITS | Encounter Summary ---
Author Organization [facility] Facility Care Team Providers Care Urologic Surgeon Name Role Phone Hernando Velasquez MD Primary Care Provider [phone] Jose Manuel Gruber MD Unavailable Bernardo Edwards MD Primary Care Provider [phone] Hernando Velasquez MD Primary Care Provider [phone] Bernardo Edwards MD Primary Care Provider [phone] Bernardo Edwards MD Primary Care Provider Hernando Velasquez MD Primary Care Provider [phone] Encounter Details Date Type Department Care Team (Latest Contact Info) Description 07/22/2016 Orders Only [facility] CLINCONV ProviderLucille MD [address] [place] [id number] Social History Tobacco Use Types Packs/Day [...] Comments SCAN - LABS 07/23/2016 12:00 AM [employer] TECHNICIAN documented in this encounter Results * SCAN - LABS (07/23/2016 12:00 AM [employer] TRA[employer] SYSTEMS TECHNICIAN) Narrative 07/23/2016 12:00 AM [employer] TRAFFIC SYSTEMS TECHNICIAN Ordered by an unspecified provider. us Historical [...] documented as of this encounter Care Teams Urologic Surgeon Relationship Specialty Start Date End Date Hernando Velasquez MD PCP - General 12/23/18 06/13/19 Bernardo Edwards MD [address] [place] [address] PCP - General 07/05/20 07/06/20 Hernando Velasquez MD PCP - General 07/07/20 07/07/20 Bernardo Edwards MD [address] [place] [address] PCP - General 07/08/20 01/06/22 Bernardo Edwards MD [address] [place] [address] PCP - General 06/14/19 07/04/20 Hernando Velasquez MD PCP - General Internal Medicine 01/07/22 Jose Manuel Gruber MD Fellow Orthopedic Surgery 07/06/19 documented as of this encounter
--- OUTSIDE RECORDS SUMMARY | 2025-03-27 12:10 | XMS_ITS | Clinical Summary ---
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 - PM&R consulted. - Distribution Systems Serviceperson placed stump link trainer mechanic / ampushield. Awaiting delivery of limb protector. - Patient not interested in prosthesis at this time. - PT/OT consults. - Plan for patient to return to her prior SNF when medically stable with ongoing PT/OT. - ID and Ortho following. COVID-19 07/05/2020 Overview (05/06/2021): Last Assessment & Plan: - Patient tested positive for COVID-19 on 06/21/20 at [place] ([facility] in [place], [place]). - She reports her only symptom [...] Plan: - As elsewhere Chronic respiratory failure ([facility]) Overview (05/06/2021): Last Assessment & Plan: - Per pt 2/2 COPD. No sings of acute exacerbation. - Continue home flonase - Continue home albuterol prn - On home is on 4L O2 at baseline Chronic lumbosacral pain 07/20/2019 Biliary colic 07/20/2019 Acute exacerbation of chronic low back pain 06/26 Abnormal x-ray of extremity 07/20/2019 Syncope due to sick sinus syndrome ([facility]) 06/28/2019 Open displaced comminuted fr acture of shaft of left tibia, type IIIA, IIIB, or IIIC 06/28/2019 Overview (05/06/2021): Added automatically from request for surgery [id number] Last Assessment & Plan: - See above. Moderate essential hypertension 06/28/2019 Overview (05/06/2021): Last Assessment & Plan: - Follows with cardiology. - Continue home amlodipine, metoprolol, lasix, spironolactone. - Switched olmesartan to losartan as not on formulary. Intractable seizure disorder ([facility]) 1 08/29/2018 Bipolar I disorder with anxious distress ([facility]) 06/28/2019 Traumatic rhabdomyolysis 11/23/2017 Hyponatremia 11/23/2017 [...] Scan (General) 2017 COVID-19 Vaccine (3 - 2024-2 6 season) 2025 08/15/2020, 07/24/2020 RSV Immunization or 60+ Years [...] 05/09/2021 Insurance MEDICAID AET MEDICARE Care Teams Nuclear Design Engineer Relationship Specialty Start Date End Date Marcia Gaines MD PCP - General 08/18/16
--- OUTSIDE RECORDS SUMMARY | 2025-03-27 12:10 | XMS_ITS | Clinical Summary ---
Author Organization [facility] Healthcare Address [address] [place] [address] Care Team Providers Care Risk And Compliance Analytics Director Name Role Phone Jose Manuel Gruber MD Unavailable [phone] Hernando Velasquez MD Primary Care Provider [phone] Allergies Active Allergy Reactions Criticality Noted Date Comments Barbiturates Unknown,Other (See comments) Medium 09/13/2006 Diazepam Unknown,Other (See comments) Low 09/13/2006 Fish Containing Products Anaphylaxis High 07/05/2019 Iodine Unknown,Other (See comments) Low 09/13/2006 Latex Unknown 06/28/2019 Menthol Hives,Itching,Rash Medium 07/08/2022 [place]-3 Fatty Acids Unknown,Other (See comments) Low 12/12/2010 [...] (eight) hours as needed for anxiety 05/04/20 20 Active primidone (MYSOLINE) 50 mg tablet 05/05/20 [...] Active Problems Problem Noted Date Diagnosed Date Visit for wound check 03/07/2025 Cardiac pacemaker in situ 02/21/2025 Overview (02/21/2025): Medtronic Micra2 AV Leadless Pacemaker. Dx; CHB. DOI 02/21/2025-Fleissner. Gross remote. Exercise hypoxemia 04/15/2022 Assessment & Plan (07/08/2022 2:39 PM INSPECTOR FINAL ASSEMBLY CONVEYOR LINE): I did recommend that the patient decrease [...] 01/07/2022 Assessment & Plan (07/08/2022 2:39 PM INSPECTOR FINAL ASSEMBLY CONVEYOR LINE): The patient does have some cough with [...] 01/07/2022 Assessment & Plan (07/08/2022 2:39 PM INSPECTOR FINAL ASSEMBLY CONVEYOR LINE): She was intolerant of CPAP therapy and [...] 07/05/2020 Assessment & Plan (07/11/2020 6:58 AM INSPECTOR FINAL ASSEMBLY CONVEYOR LINE): - Patient tested positive for COVID-19 on 06/21/20 at her care home ([facility] in [place], [place]). - She reports her only symptom [...] SNF. Assessment & Plan (07/07/2020 6:25 PM INSPECTOR FINAL ASSEMBLY CONVEYOR LINE): - Pt states she was actually tested [...] protocol Assessment & Plan (07/06/2020 11:59 AM INSPECTOR FINAL ASSEMBLY CONVEYOR LINE): - recommend getting records from SNF to establish exact date of first (+) COVID test. - pt likely has completed days of isolation. Assessment & Plan (07/06/2020 7:34 AM INSPECTOR FINAL ASSEMBLY CONVEYOR LINE): - Per report, pt was tested for [...] protocol Assessment & Plan (07/05/2020 5:40 PM INSPECTOR FINAL ASSEMBLY CONVEYOR LINE): - Per report, pt was tested for [...] 07/05/2020 Assessment & Plan (07/11/2020 6:57 AM INSPECTOR FINAL ASSEMBLY CONVEYOR LINE): History of open periprosthetic tibia/fibula fracture s/p [...] left lower extremity. - PM&R consulted. - Optical Brightener Maker Helper placed stump paper mill manager / ampushield. Awaiting delivery of limb protector. - Patient not interested in prosthesis at this time. - PT/OT consults. - Plan for patient to return to her prior SNF when medically stable with ongoing PT/OT. - ID and Ortho following. Assessment & Plan (07/07/2020 6:27 PM INSPECTOR FINAL ASSEMBLY CONVEYOR LINE): - History of open periprosthetic tibia/fibula fracture [...] extremity Assessment & Plan (07/06/2020 3:07 PM INSPECTOR FINAL ASSEMBLY CONVEYOR LINE): - Cellulitis vs subcutaneous infection vs OM [...] recs. Assessment & Plan (07/05/2020 6:03 PM INSPECTOR FINAL ASSEMBLY CONVEYOR LINE): - Cellulitis vs subcutaneous infection vs OM [...] (07/08/2020): Added automatically from request for surgery [id number] Abnormal x-ray of extremity 07/20/2019 Acute exacerbation of chronic low back pain 06/26 Biliary colic 07/20/2019 Chronic lumbosacral pain 07/20/2019 Chronic respiratory failure 07/20/2019 Assessment & Plan (07/08/2020 4:27 PM INSPECTOR FINAL ASSEMBLY CONVEYOR LINE): - Per pt 2/2 COPD. No sings of acute exacerbation. - Continue home flonase - Continue home albuterol prn - On home is on 4L O2 at baseline Assessment & Plan (07/07/2020 6:26 PM INSPECTOR FINAL ASSEMBLY CONVEYOR LINE): - Per pt 2/2 COPD. No sings of acute exacerbation. - Continue home flonase - Continue home albuterol prn - On baseline 4L O2 Assessment & Plan (07/06/2020 7:33 AM INSPECTOR FINAL ASSEMBLY CONVEYOR LINE): - Per pt 2/2 COPD. No sings of acute exacerbation. - Continue home flonase - Continue home albuterol prn - On baseline 4L O2 Assessment & Plan (07/05/2020 6:00 PM INSPECTOR FINAL ASSEMBLY CONVEYOR LINE): - Per pt 2/2 COPD. No sings of acute exacerbation. - Continue home flonase - Continue home albuterol prn - On baseline 4L O2 Closed displaced bimalleolar fracture of right l ower leg 07/20/2019 Assessment & Plan (07/05/2020 6:01 PM INSPECTOR FINAL ASSEMBLY CONVEYOR LINE): - As elsewhere Deep venous insufficiency 07/20/2019 [...] 06/28/2019 Assessment & Plan (07/08/2020 4:26 PM INSPECTOR FINAL ASSEMBLY CONVEYOR LINE): - Follows with cardiology. - Continue home amlodipine, metoprolol, lasix, spironolactone. - Switched olmesartan to losartan as not on formulary. Assessment & Plan (07/07/2020 6:26 PM INSPECTOR FINAL ASSEMBLY CONVEYOR LINE): - Follows with cardiology - Continue home amlodipine, metoprolol, lasix, spironolactone - Switched olmesartan to losartan as not on formulary Assessment & Plan (07/06/2020 3:04 PM INSPECTOR FINAL ASSEMBLY CONVEYOR LINE): - Follows with cardiology - Continue home amlodipine, metoprolol, lasix, spironolactone - Switched olmesartan to losartan as not on formulary Assessment & Plan (07/05/2020 5:58 PM INSPECTOR FINAL ASSEMBLY CONVEYOR LINE): - Follows with cardiology - Continue home amlodipine, metoprolol, lasix, spironolactone - Switch olmesartan to losartan as not on formulary Syncope due to sick sinus syndrome 06/28/2019 Open displaced comminuted fr acture of shaft of left tibia, type IIIA, IIIB, or IIIC 06/28/2019 Overview (06/28/2019): Added automatically from request for surgery [id number] Assessment & Plan (07/08/2020 4:27 PM INSPECTOR FINAL ASSEMBLY CONVEYOR LINE): - See above. 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 After hours, the ID fellow strategy execution consultant can be reached at [phone]. Assessment & Plan (07/05/2020 5:59 PM INSPECTOR FINAL ASSEMBLY CONVEYOR LINE): - L tibia and R ankle fractures s/p BRENNA in 06/2020 - Complicated by poor healing and multiple infections of L anterior leg wound - Pt of Dr. Shoemaker Hyponatremia 11/23/2017 Assessment & Plan (07/11/2020 6:59 AM INSPECTOR FINAL ASSEMBLY CONVEYOR LINE): - Pt with history of hypoNa (per report, baseline mid 120- low 130s). - Na 126 on admission. No AMS. - TSH wnl. Cortisol 17. - Na stable. Assessment & Plan (07/07/2020 6:26 PM INSPECTOR FINAL ASSEMBLY CONVEYOR LINE): - Pt with history of hypoNa (per report, baseline mid 120- low 130s). - Na 126 on admission. No AMS. - TSH wnl. Cortisol 17. - Diuretics were held and Na improved to 132. Restart when able. Assessment & Plan (07/06/2020 7:31 AM INSPECTOR FINAL ASSEMBLY CONVEYOR LINE): - Pt with history of hypoNa (per [...] Encounters Date Type Department Care Team Description 03/14/2025 Documentation [facility] Cardiology [address] [place] [address] [place] [phone] Vianca David NP [facility]. This note is to inform you that we have scheduled you for a pacemaker check at 11:00 am on 04/18/2025. You are already scheduled to see Vianca David NP at 11:30 am. Please arrive to the office by 10:45 am for your appointments. Should you have any questions or concerns please contact our office at [phone]-select option #2, then select option #9./Thank you for your cooperation./Luana Decker Device RN) 03/07/2025 9:00 AM CDT Clinical Support [facility] Cardiology [address] [place] [address] [place] [phone] Pacemaker (Primary Dx) 03/07/2025 8:30 AM CDT Ancillary Procedure [facility] Cardiology [address] [place] [address] [place] [phone] Cardiac pacemaker in situ; CHB (complete heart block) 03/06/2025 Telephone [facility] Cardiology [address] [place] [address] [place] [address] [place] [phone] Adithya Dominguez MD 02/23/2025 Orders Only [facility] Cardiology [address] [place] [address] [place] [phone] Kathy Lott MD 02/22/2025 Orders Only [facility] Health Information Management [address] [place] [address] Kathy Lott MD 02/22/2025 Telephone [facility] Cardiology [address] [place] [phone] Adithya Dominguez MD 02/22/2025 Orders Only [facility] Cardiology [address] [place] [phone] Adithya Dominguez MD 02/21/2025 Orders Only [facility] Cardiology [address] [facility] [address] [facility] [phone] Adithya Dominguez MD Cardiac pacemaker in situ (Primary Dx); CHB (complete heart block) (HCC) 02/21/2025 Orders Only [facility] Cardiology [address] [place] [phone] Kathy Lott MD from Last 3 Months Immunizations Immunization Administration [...] BILATERAL SALPINGOOPHORECTOMY 12/24/1998 - 01/22/1999 BREAST BIOPSY 2001 and 2006 Right SHOULDER SURGERY 08/26/2009 - 09/22/2009 Right ANKLE SURGERY 07/26/2015 - 07/25/2016 Left ORIF TIBIA FRACTURE 06/28/2019 Left LEG AMPUTATION 06/25/2021 - 07/25/2021 Left Medical History Medical History Date Comments Hypertension Hyperlipidemia Heart murmur Asthma COPD (chronic obstructive pulmonary disease) Shortness of breath Sleep apnea Family History [...] Comments Blood Pressure 153/76 07/08/2022 2:24 PM INSPECTOR FINAL ASSEMBLY CONVEYOR LINE Pulse 71 07/08/2022 2:24 PM INSPECTOR FINAL ASSEMBLY CONVEYOR LINE Temperature 36.5 C (97.7 F) 01/16/2022 5:20 PM CDT Respiratory Rate 18 07/08/2022 2:24 PM INSPECTOR FINAL ASSEMBLY CONVEYOR LINE Oxygen Saturation 96% 07/08/2022 2:24 PM INSPECTOR FINAL ASSEMBLY CONVEYOR LINE Inhaled Oxygen Concentration - - Weight 89.4 [...] Breast Cancer Screening-Mammogram 02/19/2024 023 Covid-19 Vaccine (4 2023-2 5 season) 2024 05/29/2021, 08/14/2020, 08/14/2020, Additional history exists Influenza Vaccine (#1) 2025 9, 05/04/2018, 04/26/2017, Additional history exists DTaP/Tdap/Td Vaccine (3 - Td or Tdap) 11/23/2033 11/24/2023, 06/28/2019 Pneumococcal vaccine 65+ Completed 018, 05/04/2018, 04/04/2015 Zoster Vaccine Completed 01/25/2019, 10/26, 11/15/2018 Hepatitis C Screening Completed 06/10/2019 Medical Devices Implanted Type Area Mathematics Technician Device Identifier Shelf Expiration Date Model / Serial / Lot Synthes 223.581 Lcp Combi [id number] 8 Hole Limit Contact Taper End Plate Bone - S0 - [id number] Implanted:Qty: 1 on 06/28/2019 by Lo Laura DO at [facility] Plate Left: Tibia Synthes I 223.581 / 0 / 0 Synthes 212.106 3.5mm 2.9mm 20mm Self Tap Lock Stardrive Conical Head T15 Full - S0 - [id number] Implanted:Qty: 1 on 06/28/2019 by Lo Laura DO at [facility] Screw Left: Tibia Synthes I 212.106 / 0 / 0 Synthes 212.108 3.5mm 2.9mm 24mm Self Tap Lock Stardrive Conical Head Pelvis T15 - S0 - [id number] Implanted:Qty: 1 on 06/28/2019 by Lo Laura DO at [facility] Screw Left: Tibia Synthes I 212.108 / 0 / 0 Synthes 212.109 3.5mm 2.9mm 26mm Self Tap Lock Stardrive Conical Head T15 Full - S0 - [id number] Implanted:Qty: 1 on 06/28/2019 by Lo Laura DO at [facility] Screw Left: Tibia Synthes I 212.109 / 0 / 0 Synthes 212.104 3.5mm 2.9mm 16mm Self Tap Lock Stardrive Conical Head T15 Full - S0 - [id number] Implanted:Qty: 2 on 06/28/2019 by Lo Laura DO at [facility] Screw Left: Tibia Synthes I 212.104 / 0 / 0 Synthes 212.107 3.5mm 2.9mm 22mm Self Tap Lock Stardrive Conical Head T15 Full - S0 - [id number] Implanted:Qty: 1 on 06/28/2019 by Lo Laura DO at [facility] Screw Left: Tibia Synthes I 212.107 / 0 / 0 Synthes 212.103 3.5mm 2.9mm 14mm Self Tap Lock Stardrive Conical Head T15 Full - [id number] Implanted:Qty: 2 on 06/30/2019 by Jacobo Shoemaker MD at [facility] Left: Tibia Synthes I 212.103 / / Synthes 212.109 3.5mm 2.9mm 26mm Self Tap Lock Stardrive Conical Head T15 Full - [id number] Implanted:Qty: 2 on 06/30/2019 by Jacobo Shoemaker MD at [facility] Left: Tibia Synthes I 212.109 / / Synthes 212.101 3.5mm 2.9mm 10mm Self Tap Lock Stardrive Conical Head T15 Full - [id number] Implanted:Qty: 1 on 06/30/2019 by Jacobo Shoemaker MD at [facility] Left: Tibia Synthes I 212.101 / / Synthes 212.107 3.5mm 2.9mm 22mm Self Tap Lock Stardrive Conical Head T15 Full - [id number] Implanted:Qty: 1 on 06/30/2019 by Jacobo Shoemaker MD at [facility] Left: Tibia Synthes I 212.107 / / Synthes 204.840 3.5mm 6mm 40mm 2.5mm Self Tap Small Hexagonal Socket Low Profile - [id number] Implanted:Qty: 1 on 06/30/2019 by Jacobo Shoemaker MD at [facility] Left: Tibia Synthes I 204.840 / / Synthes 204.832 3.5mm 6mm 32mm 2.5mm Self Tap Small Hexagonal Socket Low Profile - [id number] Implanted:Qty: 1 on 06/30/2019 by Jacobo Shoemaker MD at [facility] Left: Tibia Synthes I 204.832 / / Synthes 241.351 Lcp 12mm [id number] .7mm 5 Hole Collar 1/3 Tubular Plate Bone - [id number] Implanted:Qty: 1 on 06/30/2019 by Jacobo Shoemaker MD at [facility] Left: Tibia Synthes I 241.351 / / Synthes 241.351 Lcp 12mm [id number] .7mm 5 Hole Collar 1/3 Tubular Plate Bone - [id number] Implanted:Qty: 1 on 06/30/2019 by Jacobo Shoemaker MD at [facility] Right: Ankle Synthes I 241.351 / / Synthes 204.826 3.5mm 6mm 26mm 2.5mm Self Tap Small Hexagonal Socket Low Profile - [id number] Implanted:Qty: 1 on 06/30/2019 by Jacobo Shoemaker MD at [facility] Right: Ankle Synthes I 204.826 / / Synthes 212.102 3.5mm 2.9mm 12mm Self Tap Lock Stardrive Conical Head T15 Full - [id number] Implanted:Qty: 1 on 06/30/2019 by Jacobo Shoemaker MD at [facility] Right: Ankle Synthes I 212.102 / / Synthes 212.114 3.5mm 2.9mm 35mm Self Tap Lock Stardrive Conical Head T15 Full - [id number] Implanted:Qty: 1 on 06/30/2019 by Jacobo Shoemaker MD at [facility] Right: Ankle Synthes I 212.114 / / Synthes 223.641 Lcp Combi [id number] 14 Hole Limit Contact Taper End Plate Bone - [id number] Implanted:Qty: 1 on 06/30/2019 by Jacobo Shoemaker MD at [facility] Left: Tibia Synthes I 223.641 / / Synthes 204.824 3.5mm 6mm 24mm 2.5mm Self Tap Small Hexagonal Socket Low Profile - [id number] Implanted:Qty: 2 on 06/30/2019 by Jacobo Shoemaker MD at [facility] Left: Tibia Synthes I 204.824 / / Synthes 212.104 3.5mm 2.9mm 16mm Self Tap Lock Stardrive Conical Head T15 Full - [id number] Implanted:Qty: 2 on 06/30/2019 by Jacobo Shoemaker MD at [facility] Left: Tibia Synthes I 212.104 / / Explanted Type Area Mathematics Technician Device Identifier Shelf Expiration Date Model / Serial / Lot Synthes 204.836 3.5mm 6mm 36mm 2.5mm Self Tap Small Hexagonal Socket Low Profile - [id number] Explanted:Qty: 1 on 06/30/2019 at [facility] Right: Ankle Synthes I 204.836 / / Synthes 212.117 3.5mm 2.9mm 40mm Self Tap Lock Stardrive Conical Head T15 Full - [id number] Explanted:Qty: 1 on 06/30/2019 at [facility] Right: Ankle Synthes I 212.117 / / Procedures Procedure Name Priority Date/Time Associated Diagnosis Comments CARDIOLOGY DOCUMENT SCAN Routine 02/22/2025 2:45 PM CDT SCAN - RADIOLOGY/IMAGING 02/22/2025 CARDIOLOGY DOCUMENT SCAN Routine 02/21/2025 1:26 PM CDT CARDIOLOGY DOCUMENT SCAN Routine 02/21/2025 1:19 PM CDT CARDIOLOGY DOCUMENT SCAN Routine 02/20/2025 9:16 AM CDT CARDIOLOGY DOCUMENT SCAN Routine 02/19/2025 9:05 AM CDT SCREENING MAMMOGRAM BILATERAL W WILLIE Schedule Routine, Read Routine (OP Routine) 02/18/2023 1:39 PM CDT Screening mammogram, encounter for HEPATITIS PANEL, ACUTE Routine 06/10/2019 10:11 AM INSPECTOR FINAL ASSEMBLY CONVEYOR LINE from Last 3 Months or Most Recently Relevant to Health Maintenance Results * Cardiology Document Scan (02/22/2025 2:45 PM CDT) Anatomical Region Laterality Modality Other Result Dolly Lott MD CV CARDIAC SERVICES PROCEDU RES Final Result * SCAN - RADIOLOGY/IMAGING (02/22/2025) Anatomical Region Laterality Modality Other Result Dolly Lott MD Final Resul t * Cardiology Document Scan (02/21/2025 1:26 PM CDT) Anatomical Region Laterality Modality Other Result Dolly Lott MD CV CARDIAC SERVICES PROCEDU RES Final Result * Cardiology Document Scan (02/21/2025 1:19 PM CDT) Anatomical Region Laterality Modality Other Result [facility] us Adithya Dominguez MD CV CARDIAC SERVICES PROC EDURES Final Result * Cardiology Document Scan (02/20/2025 9:16 AM CDT) Anatomical Region Laterality Modality Other Result Dolly Lott MD CV CARDIAC SERVICES PROCEDU RES Final Result * Cardiology Document Scan (02/19/2025 9:05 AM CDT) Anatomical Region Laterality Modality Other Result Dolly Lott MD CV CARDIAC SERVICES PROCEDU RES Final Result * Screening Mammogram Bilateral W [...] age 40, based on guidelines of the [place] [employer] (ACR Practice Parameter for the Performance of Screening and Diagnostic Mammography) and [place] [employer]. For women [...] * Hepatitis panel, acute (06/10/2019 10:11 AM INSPECTOR FINAL ASSEMBLY CONVEYOR LINE) HepBsAg NONREACT NONREACTIVE [facility] Comment: Siemens CentaurXP using SUSU (chemiluminescent immunoassay) technology. NONREACTIVE: IgM antibodies to Hepatitis B Surface antigen not detected. REACTIVE: IgM antibodies to Hepatitis B Surface antigen detected. Reactive results will be confirmed by neutralization testing. HBsAb qn <3.10 mIU/mL [facility] Comment: Siemens CentaurXP using SUSU (chemiluminescent immunoassay) technology. 9.99 IU/L or less.....NONREACTIVE: IgM antibodies to Hepatitis B Surface antibody are not detected. 10.00 IU/L or greater..REACTIVE: IgM antibodies to Hepatitis B Surface antibody are detected. Hep B core IgM NONREACT NONREACTIVE [facility] Comment: Siemens CentaurXP using SUSU (chemiluminescent immunoassay) technology. NONREACTIVE: IgM antibodies to Hepatitis B Core antigen not detected. EQUIVOCAL: IgM antibodies to Hepatitis B Core antigen may or may not be present. Obtain a new specimen and retest. REACTIVE: IgM antibodies to Hepatitis B Core antigen detected. Hep A IgM NONREACT NONREACTIVE [facility] Comment: Siemens CentaurXP using SUSU (chemiluminescent immunoassay) technology. NONREACTIVE: IgM antibodies to Hepatitis A not detected. This does not exclude possibility of exposure to Hepatitis A or early acute infection. EQUIVOCAL:IgM antibodies to Hepatitis A may or may not be present. Suggest recollection and retest. REACTIVE: Antibodies to Hepatitis A detected. Hep C Ab NONREACT NONREACTIVE [facility] Comment: Siemens CentaurXP using SUSU (chemiluminescent immunoassay) [...] real-time PCR method. 06/10/2019 10:1 1 AM INSPECTOR FINAL ASSEMBLY CONVEYOR LINE 06/10/2019 10:47 AM INSPECTOR FINAL ASSEMBLY CONVEYOR LINE Narrative Resulting Agency Comment IN Destiny Pereira MD LAB MICROBIOLOGY - GENERAL ORDERABLES Final Result [facility] [address] [place] [address], [facility] [phone] from Last 3 Months or Most Recently Relevant to Health Maintenance Insurance [facility] [place] [address] [facility] [employer] [facility] IDPA MEDICARE Advance Directives For more information, please contact: [phone] Documents on File Type Date Recorded Patient Registered Nurse Float Pool Expl anation ADVANCE DIRECTIVE 07/14/2020 6:58 AM * Full Code (Latest Code Status on File) Date Activated Date Inactivated Comments 07/05/2020 4:11 PM 07/12/2020 7:15 PM * Full Code Date Activated Date Inactivated Comments 06/28/2019 11:55 PM 07/06/2019 8:59 PM Care Teams Risk And Compliance Analytics Director Relationship Specialty Start Date End Date Hernando Velasquez MD PCP - General Internal Medicine 01/07/22 Jose Manuel Gruber MD Fellow Orthopedic Surgery 07/06/19
[2025-03-27 12:48] LABS: Add Urine Microscopic? YES; Appearance Urine Clear (Clear); Glucose Urine UA Negative (Negative); Leukocyte Esterase Ur Negative LEU/UL (Negative); Nitrate Urine Negative (Negative); Non Pathogenic Casts 0-2; Specific Grav Ur 1.010 (1.001-1.035)
--- NOTE | 2025-03-27 13:11 | ED.GENADULT ---
HPI - General Adult General Chief complaint: Weakness Stated complaint: low blood pressure Time Seen by Provider: 03/27/25 11:52 History of Present Illness HPI narrative: This is a 74-year-old female presenting for low blood pressures and fainting. Patient had a shingles shot 4 days ago. Since then she has been having fatigue body aches nausea and decreased p.o. intake. She went to her physical therapy earlier this morning and almost fainted. They checked her blood pressure that time if 60/30 and she appeared pale. She got 1 L of fluids from EMS improved to 90 over 60. Patient is denying fevers, chest pain, difficulty breathing, vomiting/diarrhea or urinary symptoms. Last bowel movement 3 days ago. Related Data Home Medications ?Medication ?Instructions ?Recorded ?Confirmed ?Last Taken ?Type fluticasone propionate 50 1 spray intranasal DAILY 09/09/19 02/19/25 02/19/25 History mcg/actuation nasal spray,suspension docusate sodium 100 mg tablet 200 mg PO BID Constipation 05/31/20 02/19/25 02/19/25 History amlodipine 10 mg tablet 10 mg PO DAILY 04/23/24 02/19/25 02/19/25 History bisacodyl 5 mg tablet,delayed 10 mg PO HS PRN Constipation 04/23/24 02/19/25 Unknown History release (Dulcolax (bisacodyl)) guaifenesin 1,200 mg tablet, 1,200 mg PO Q12H 04/23/24 02/19/25 02/19/25 History extended release 12 hr (Mucinex) memantine 5 mg tablet 5 mg PO BID 04/23/24 02/19/25 02/19/25 History ondansetron HCl 4 mg tablet 4 mg PO TID 04/23/24 02/19/25 02/19/25 History isosorbide mononitrate 30 mg 30 mg PO DAILY 08/06/24 02/19/25 02/19/25 History tablet,extended release 24 hr lidocaine 5 % topical patch 2 patch topical HS 08/06/24 02/19/25 02/18/25 History (Lidoderm) magnesium hydroxide 400 mg/5 mL 30 ml PO DAILY PRN constipation 08/06/24 02/19/25 Unknown History oral suspension (Gentle Laxative (magnesium hydroxide)) atorvastatin 10 mg tablet (Lipitor) 10 mg PO HS 01/18/25 02/19/25 02/18/25 History buspirone 10 mg tablet 10 mg PO Q12H 01/18/25 02/19/25 02/19/25 History clonazepam 0.5 mg tablet 0.5 mg PO Q12H 01/18/25 02/19/25 02/19/25 History famciclovir 250 mg tablet 250 mg PO Q12H 01/18/25 02/19/25 02/19/25 History lactulose 10 gram/15 mL oral 30 g PO BID 01/18/25 02/19/25 02/19/25 History solution (Enulose) magnesium citrate 300 ml PO DAILY PRN constipation 01/18/25 02/19/25 Unknown History polyvinyl alcohol-povidone 0.5 2 drp EACH EYE BID PRN dry eye(s) 01/18/25 02/19/25 02/19/25 History %-0.6 % eye drops (Artificial Tears (polyvinyl alcohol/povidone)) primidone 50 mg tablet See Rx Instructions .Route .COMPLEX 01/18/25 02/19/25 02/19/25 History sennosides 8.6 mg-docusate sodium 2 tab-cap PO BID 01/18/25 02/19/25 02/19/25 History 50 mg tablet (Senna Plus) spironolactone 25 mg tablet 25 mg PO DAILY 01/18/25 02/19/25 02/19/25 History venlafaxine 37.5 mg 37.5 mg PO DAILY 01/18/25 02/19/25 02/19/25 History capsule,extended release 24 hr zolpidem 5 mg tablet 5 mg PO HS 01/18/25 02/19/25 02/18/25 History famotidine 10 mg tablet (Heartburn 10 mg PO DAILY 02/08/25 02/19/25 02/19/25 History Relief (famotidine)) tizanidine 2 mg tablet 2 mg PO Q12H 02/08/25 02/19/25 02/19/25 History polyethylene glycol 3350 17 17 g PO DAILY 02/19/25 02/19/25 02/19/25 History gram/dose oral powder polyvinyl alcohol 1.4 % eye drops 2 drp EACH EYE BID 07/02/19/25 02/19/25 History (Artificial Tears (polyvinyl alcohol)) sodium chloride 1,000 mg soluble 1,000 mg PO BID 02/19/25 02/19/25 02/19/25 History tablet Allergies Allergy/AdvReac Type Severity Reaction Status Date / Time Fish Containing Products Allergy Severe Dyspnea / Verified 03/27/25 13:09 SOB Iodinated Contrast Media Allergy Intermediate HIVES, RED Verified 03/27/25 13:09 FACE iodine Allergy Unknown Unknown Verified 03/27/25 13:09 Barbiturates Allergy Unknown Verified 03/27/25 13:09 bupivacaine Allergy Unknown Verified 03/27/25 13:09 diazepam (From Valium) Allergy Unknown Verified 03/27/25 13:09 latex Allergy Unknown Verified 03/27/25 13:09 menthol Allergy Unknown Verified 03/27/25 13:09 Sulfa (Sulfonamide Allergy Unknown Verified 03/27/25 13:09 Antibiotics) thiopental (From Pentothal) Allergy Unknown Verified 03/27/25 13:09 wool Allergy Unknown Verified 03/27/25 13:09 PMFSH Past Medical History Medical History History of atrial fibrillation Failure to thrive CVA (cerebral vascular accident) Chronic anticoagulation Kidney stone Chronic anemia Chronic respiratory failure with hypoxia, on home oxygen therapy Bipolar disorder Gastroesophageal reflux disease Hyperlipidemia Hypertension Obstructive sleep apnea intolerant to CPAP Left tibial fracture Chronic hyponatremia Shingles Anxiety Depression Gastroparesis Diverticulitis Asthma Epilepsy no longer on medication Seasonal allergies Surgical History Surgical History History of left above knee amputation History of right shoulder replacement History of cholecystectomy History of left knee replacement History of hysterectomy History of open reduction and internal fixation (ORIF) procedure Left tibia and right ankle. History of appendectomy History of tonsillectomy Family History Family History Mother Suicide Depression Heart disease Hypertension Heart failure Sibling Suicide Father Diabetes mellitus Emphysema lung Social History Social History Social History: Surrogate medical decision maker: Martina Rodney, daughter. Code status: Full code. Smoking status: Never smoker Second hand tobacco smoke exposure: No Alcohol intake: never Substance use: never Substance use type: does not use Do You Feel Safe in your Home?: Yes Lack of Transportation: No Lack of Food: Never True Current Housing: I Have Housing Concerned About Future Housing: No Difficulty Paying Gas/Electric Bills: No Difficulty Paying for Meds: No Currently Unemployed: No Education: High School Diploma/GED Difficulty w/ Childcare or Family Care: No Living arrangements: shelter [facility] Occupation/Education: retired Spiritual care concerns: No Agree to blood products: No Exam Narrative: APPEARANCE: No apparent distress. A&O x4 Head: atraumatic. EYES: EOMI, NOSE: Atraumatic NECK: Trachea midline RESPIRATORY: No increased rate of breathing clear to auscultation CARDIOVASCULAR: RRR, no peripheral edema ABDOMINAL: Non-distended soft nontender MUSCULOSKELETAl: Left AKA NEURO: Alert. Moving 3/3 extremities SKIN:: Warm, dry. Normal color PSYCHIATRIC: Normal affect Course Vital Signs Vital signs: Vital Signs Temperature 98.3 F 03/27/25 11:41 Pulse Rate 72 03/27/25 11:41 Respiratory Rate 18 03/27/25 11:41 Blood Pressure 103/49 L 03/27/25 11:41 Pulse Oximetry 100 03/27/25 11:41 Oxygen Delivery Nasal Cannula 03/27/25 11:41 Oxygen Flow Rate 2 03/27/25 11:41 Temperature 98.3 F 03/27/25 11:41 Pulse Rate 72 03/27/25 16:00 Respiratory Rate 11 L 03/27/25 16:00 Blood Pressure 112/56 L 03/27/25 16:00 Pulse Oximetry 99 03/27/25 16:00 Oxygen Delivery Nasal Cannula 03/27/25 11:41 Oxygen Flow Rate 2 03/27/25 11:[address] [facility] Narrative Medical decision making narrative: -Course: This is a 74-year-old female presenting with 4 days weakness since receiving a shingles shot. She had a presyncopal event at physical therapy and had blood pressures and 60/30. Patient given fluid resuscitation for soft blood pressures. Workup largely unremarkable. Hemoglobin at baseline. Sodium 128 although she typically runs in the high 120s/low 130s. Lactic 0.7. Urine not indicative infection. Viral swabs negative. Chest x-ray is clear and she does not have any respiratory symptoms. EKG showed left ventricular hypertrophy. Unclear etiology of the patient's presyncopal episode. Pacemaker interrogation is pending. Other causes include possible dehydration due to decreased oral intake since her shingles vaccine. Regardless given her advanced age and poor overall health will place her in observation overnight. -DDX includes but is not limited to: Vasovagal syncope, cardiac syncope, dehydration, sepsis Vital Signs Vital Signs: Vital Signs Temperature 98.3 F 03/27/25 11:41 Pulse Rate 72 03/27/25 11:41 Respiratory Rate 18 03/27/25 11:41 Blood Pressure 103/49 L 03/27/25 11:41 Pulse Oximetry 100 03/27/25 11:41 Oxygen Delivery Nasal Cannula 03/27/25 11:41 Oxygen Flow Rate 2 03/27/25 11:41 Temperature 98.3 F 03/27/25 11:41 Pulse Rate 72 03/27/25 16:00 Respiratory Rate 11 L 03/27/25 16:00 Blood Pressure 112/56 L 03/27/25 16:00 Pulse Oximetry 99 03/27/25 16:00 Oxygen Delivery Nasal Cannula 03/27/25 11:41 Oxygen Flow Rate 2 03/27/25 11:41 Lab Data 03/27/25 13:02 03/27/25 13:02 Labs: Lab Results 03/27/25 03/27/25 03/27/25 Range/Units 12:36 13:02 13:18 WBC 6.8 (4.5-10.0) K/mm3 RBC 3.27 L (4.2-5.4) M/mm3 Hgb 8.8 L (12.0-15.0) g/dL Hct 28.9 L (37.0-47.0) % MCV 88.4 (80-100) fl MCH 26.9 (26-34) pg MCHC 30.4 L (32-36) g/dl RDW 15.4 H (11.5-14.5) % Plt Count 207 (150-375) k/mm3 MPV 12.1 H (7.4-10.4) fl Immature Gran % (Auto) 0.9 H (0-0.5) % Neut % (Auto) 75.0 H (45.5-73.1) % Lymph % (Auto) 10.7 L (18.3-44.2) % [place] % (Auto) 9.3 H (2.6-8.5) % Eos % (Auto) 4.0 (0-4.4) % Baso % (Auto) 0.1 L (0.2-1.2) % Lymph # (Auto) 0.73 L (0.9-3.2) K/mm3 [place] # (Auto) 0.6 (0.1-0.6) K/mm3 Eos # (Auto) 0.3 (0-0.3) K/mm3 Baso # (Auto) 0.0 (0.0-0.1) K/mm3 Abs Immat Gran (auto) 0.06 H (0.00-0.031) K/mm3 Absolute Neuts (auto) 5.1 (1.3-6.7) K/mm3 Absolute Nucleated RBC 0.000 (0.0-0.012) K/mm3 Band Neutrophils % Not Reportable Nucleated RBC % 0.0 (0.0-0.2) % Platelet Estimate Adequate (Adequate) % Immature Plt Fraction 7.5 (0.9-11.2) % Schistocytes None seen PT 15.2 H (11.1-14.7) Seconds INR 1.2 APTT 33.0 (22.3-36.8) Seconds Sodium 128 L (137-145) mmol/L Potassium 4.7 (3.4-5.0) mmol/L Chloride 98 (98-107) mmol/L Carbon Dioxide 25 (22-30) mmol/L Anion Gap 5 (4-12) mmol/L BUN 14 D (7-17) mg/dL Creatinine 0.68 L (0.7-1.0) mg/dL Estim Creat Clear Calc 66 ml/min Estimated GFR > 60 (59 - ) Glucose 112 H (65-110) mg/dL Lactic Acid 0.7 (0.7-2.0) mmol/L Calcium 8.0 L (8.4-10.2) mg/dL Phosphorus 4.1 (2.5-4.5) mg/dL Magnesium 1.7 (1.6-2.3) mg/dL Total Bilirubin 0.2 (0.2-1.3) mg/dL AST 23 (14-36) U/L ALT 14 (6-35) U/L Alkaline Phosphatase 109 (38-126) U/L Total Protein 5.7 L (6.3-8.2) g/dL Albumin 3.2 L (3.5-5.1) g/dL Lipase 25 (23-300) U/L Urine Color Yellow (Yellow) Urine Appearance Clear (Clear) Urine pH 6.0 (5.0-9.0) Ur Specific [place] 1.010 (1.001-1.035) Urine Protein 1+ H (Negative) mg/dL Urine Glucose (UA) Negative (Negative) mg/dL Urine Ketones Negative (Negative) mg/dL Ur Blood (Man) Negative (Negative) Urine Nitrate Negative (Negative) Urine Bilirubin Negative (Negative) Urine Urobilinogen 0.2 (<2.0) mg/dL Leukocyte Esterase Rfl Negative (Negative) LEEANNE/UL Urine RBC 0-2 (0-2) /hpf Urine WBC 0-5 (0-3) /hpf Ur Squamous Epith Cells None seen (Few) /hpf Urine Bacteria None seen /hpf Urine Casts 0-2 Influenza A (RT-PCR) Negative (Negative) Influenza B (RT-PCR) Negative (Negative) RSV (RT-PCR) Negative (Negative) SARS-CoV-2 RNA (RT-PCR) Negative (Negative) Discharge Plan Discharge Clinical Impression: Pre-syncope, Blood pressure abnormally low Patient Disposition: Still a Patient Condition: Guarded Prognosis Patient Language: Italian Prescriptions: No Action docusate sodium 100 mg Tablet 200 mg PO BID isosorbide mononitrate 30 mg tablet extended release 24 hr 30 mg PO DAILY lidocaine [Lidoderm] 5 % adhesive patch,medicated 2 patch topical HS Patient Comments: left shoulder Rx Instructions: leave on most painful area for up to 12 hrs magnesium hydroxide [Gentle Laxative (mag hydrox)] 400 mg/5 mL suspension 30 ml PO DAILY PRN (Reason: constipation) Xarelto 20 mg Tablet 20 mg PO DAILY@1700 Qty: 60 0RF oxycodone-acetaminophen 5-325 mg Tablet 1 tablet PO Q8H PRN (Reason: Pain Rated 7-10) Qty: 10 0RF irbesartan 150 mg Tablet 300 mg PO QAM Qty: 30 0RF primidone 50 mg tablet See Rx Instructions .ROUTE .COMPLEX Rx Instructions: 200 MG PO BID; spironolactone 25 mg tablet 25 mg PO DAILY venlafaxine 37.5 mg capsule,extended release 24hr 37.5 mg PO DAILY zolpidem 5 mg tablet 5 mg PO HS buspirone 10 mg tablet 10 mg PO Q12H clonazepam 0.5 mg tablet 0.5 mg PO Q12H magnesium citrate Solution 300 ml PO DAILY PRN (Reason: constipation) lactulose [Enulose] 10 gram/15 mL solution 30 g PO BID famciclovir 250 mg tablet 250 mg PO Q12H atorvastatin [Lipitor] 10 mg tablet 10 mg PO HS sennosides-docusate sodium [Senna Plus] 8.6-50 mg tablet 2 tab-cap PO BID Artificial Tears(pvalch-povid) 0.5-0.6 % drops 2 drp EACH EYE BID PRN (Reason: dry eye(s)) clonidine 0.1 mg/24 hr Patch Weekly 1 patch transdermal WEEKLY Qty: 4 0RF tizanidine 2 mg tablet 2 mg PO Q12H famotidine [Heartburn Relief (famotidine)] 10 mg Tablet 10 mg PO DAILY ipratropium-albuterol 0.5 mg-3 mg(2.5 mg base)/3 mL Solution For Nebulization 3 ml inhalation Q6HRT PRN (Reason: Wheezing) Qty: 30 0RF hydralazine 50 mg Tablet 50 mg PO Q8HR Qty: 30 0RF cefdinir 300 mg capsule 300 mg PO Q12H Qty: 10 0RF Patient Comments: Order is for 02/16/25-02/26/25 fluticasone propionate 50 mcg/actuation [place],Suspension 1 spray INTRANASAL DAILY ondansetron HCl 4 mg tablet 4 mg PO TID amlodipine 10 mg tablet 10 mg PO DAILY bisacodyl [Dulcolax (bisacodyl)] 5 mg Tablet,Delayed Release (Dr/Ec) 10 mg PO HS PRN (Reason: Constipation) memantine 5 mg tablet 5 mg PO BID guaifenesin [Mucinex] 1,200 mg Tablet Extended Release 12hr 1,200 mg PO Q12H pregabalin [Lyrica] 150 mg Capsule 150 mg PO BID Qty: 14 0RF polyethylene glycol 3350 17 gram/dose powder 17 g PO DAILY polyvinyl alcohol [Artificial Tears (polyvin alc)] 1.4 % drops 2 drp EACH EYE BID sodium chloride 1,000 mg tablet,soluble 1,000 mg PO BID furosemide 20 mg Tablet 20 mg PO BID 30 Days Qty: 60 0RF Follow-up/Referrals: UNKNOWN,DOCTOR [Primary Care Provider]
[2025-03-27 13:26] LABS: Hematocrit 28.9 % (37.0-47.0); Hemoglobin 8.8 g/dL (12.0-15.0); Immature Granulocyte Percent A 0.9 % (0-0.5); Immature Platelet Fraction Pct 7.5 % (0.9-11.2); Lymphocytes Absolute Auto 0.73 K/mm3 (0.9-3.2); Mean Corpuscular HGB Conc 30.4 g/dl (32-36); Mean Corpuscular Hemoglobin 26.9 pg (26-34); Mean Corpuscular Volume 88.4 fl (80-100); Nucleated Red Blood Cells Absolute Auto 0.000 K/mm3 (0.0-0.012); Nucleated Red Blood Cells Perc 0.0 % (0.0-0.2); Platelet Count Result 207 k/mm3 (150-375); Red Blood Count 3.27 M/mm3 (4.2-5.4); White Blood Count 6.8 K/mm3 (4.5-10.0)
[2025-03-27 13:41] LABS: Schistocytes None Seen
[2025-03-27 13:42] LABS: INR 1.2; Partial Thromboplastin Time 33.0 Seconds (22.3-36.8); Prothrombin Time 15.2 Seconds (11.1-14.7)
[2025-03-27 13:43] LABS: Alanine Aminotransferase 14 U/L (6-35); Albumin Level 3.2 g/dL (3.5-5.1); Alkaline Phosphatase 109 U/L (38-126); Anion Gap 5 mmol/L (4-12); Aspartate Amino Transferase 23 U/L (14-36); Bilirubin,Total 0.2 mg/dL (0.2-1.3); Blood Urea Nitrogen 14 mg/dL (7-17); Calcium 8.0 mg/dL (8.4-10.2); Carbon Dioxide 25 mmol/L (22-30); Chloride 98 mmol/L (98-107); Estimated CRCL calculation 66 ml/min; Estimated Glomerular Filt Rate > 60; Glucose 112 mg/dL (65-110); Lipase 25 U/L (23-300); Magnesium 1.7 mg/dL (1.6-2.3); Potassium 4.7 mmol/L (3.4-5.0); Sodium 128 mmol/L (137-145); Total Protein 5.7 g/dL (6.3-8.2)
[2025-03-27 14:09] LABS: Influenza A QL RT-PCR Negative (Negative); Influenza B QL RT-PCR Negative (Negative); RSV RNA, RT-PCR Negative (Negative); SARS-CoV-2 RNA PCR Negative (Negative)
[2025-03-27] MEDS: LACTATED RINGERS 2,000 ML 999 ML IV CONT (15:00)
--- NOTE | 2025-03-27 19:26 | ADMGEN ---
This patient, Celestina Ewing, was admitted to [facility] Surg Room 332-02. Patient/family oriented to hospital policies and general routines including ID bracelet, bed and alarms, visiting hours, pain management, procedures, bathroom and other care routines, personal items, smoking policy, room service/diet, and visiting hours. Information on how to activate the Rapid Response Team has been discussed. Patient/Family are encouraged to report perceived risks to care and to ask questions if they do not understand what they are told or what they should do.
[2025-03-28] VITALS (10 sets, daily range): BP systolic 178–205; BP diastolic 68–79; PULSE 83–100; RESP 18–20; TEMP 36.2–36.6; O2SAT 91–100
--- NOTE | 2025-03-28 | ECHO_ITS ---
Patient Info Name: Celestina Ewing Age: 74 years : 1950 Gender: Female Ht: 61 in Wt: 201 lbs BSA: 2.03 m2 HR: 81 bpm BP: 178 / 68 mmHg Heart Rhythm: Sinus Rhythm Technical Quality: Poor Exam Date: 03/28/2025 3:18 PM Patient Status: I Admit Date: 03/27/2025 Exam Type: CA echo dop color flow w con Complete two-dimensional, color flow and Doppler transthoracic echocardiogram is performed with contrast to opacify the left ventricle and to improve the deliniation of the left ventricle endocardial borders. Staff Referring Physician: China Ortiz Home Health Clinician: Trupti Barragan Attending Provider: Jose Groves Contrast/Agitated Saline Contrast/Ag. Saline: Definity Amount: 2.00 ml Administered By: Trupti Barragan Reason for Poor Study: poor echocardiographic windows Summary 1. Left ventricular chamber dimension is normal. 2. Left ventricular systolic function is normal, estimated at 65-70. 3. There is moderately increased left ventricular wall thickness. 4. The left ventricular diastolic function is grade I diastolic dysfunction. 5. Left atrial chamber dimension is mildly enlarged. 6. There is mild to moderate aortic valve regurgitation. 7. There is mild aortic valve calcification. 8. There is mild mitral valve regurgitation. 9. There is mild mitral valve stenosis. 10. The mitral valve annulus is severely calcified. 11. There is mild tricuspid valve regurgitation. Left Ventricle Left ventricular chamber dimension is normal. Left ventricular systolic function is normal, estimated at 65-70. There is moderately increased left ventricular wall thickness. The left ventricular diastolic function is grade I diastolic dysfunction. Right Ventricle Right ventricular chamber dimension is normal. Right ventricular systolic function is normal. Left Atria Left atrial chamber dimension is mildly enlarged. Right Atria Right atrial chamber dimension is normal. Atrial Septum Intact interatrial septum visualized by color flow imaging. Aortic Valve The aortic valve is probable trileaflet. There is no aortic valve stenosis. There is mild to moderate aortic valve regurgitation. There is mild aortic valve calcification. Pulmonic Valve The pulmonic valve is normal. There is no pulmonic valve stenosis. There is trace pulmonic regurgitation. Mitral Valve There is mild mitral valve stenosis. There is mild mitral valve regurgitation. The mitral valve annulus is severely calcified. Tricuspid Valve The tricuspid valve leaflets are normal. There is no significant tricuspid valve stenosis. There is mild tricuspid valve regurgitation. Pericardium/Pleural The pericardium appears normal. There is no pericardial effusion. Inferior Vena Cava Normal inferior vena cava with >50% collapse upon inspiration consistent with normal right atrial pressure, 5 mmHg. Aorta The aortic root size at the sinus of Valsalva is normal. Left Ventricular Outflow Tract Name Value Normal LVOT 2D LVOT Diameter 1.8 cm LVOT Doppler LVOT Peak Velocity 139 cm/s LVOT Peak Gradient 8 mmHg LVOT Mean Gradient 5 mmHg LVOT VTI 33 cm LVOT Stroke Volume 84 ml Pulmonic Valve Name Value Normal RVOT Doppler RVOT Peak Velocity 86 cm/s RVOT Peak Gradient 3 mmHg Mitral Valve Name Value Normal MV Doppler MV Peak Gradient 10 mmHg MV Mean Gradient 4 mmHg MV Area (Cont Eq VTI) 2.1 cm2 MV Diastolic Function MV E Peak Velocity 89 cm/s MV A Peak Velocity 145 cm/s MV E/A 0.6 MV Decel Time (PW) 455 ms MV Annular TDI MV E/e' (Septal) 16.4 Tricuspid Valve Name Value Normal Estimated PAP/RSVP RA Pressure 5 mmHg <=5 Aorta Name Value Normal Ascending Aorta Ao Root Diameter (2D) 3.1 cm Ao Root Diam Index (2D) 1.5 cm/m2 Ao Sinotub Junction Diameter 2.4 cm 2.3-2.9 Prox Asc Ao Diameter 3.4 cm 2.3-3.1 Prox Asc Ao Diameter Index 1.7 cm/m2 1.3-1.9 Aortic Valve Name Value Normal AV Doppler AV Peak Velocity 161 cm/s AV Peak Gradient 10 mmHg AV Area (Cont Eq Van) 2.2 cm2 AV DI (Van) 0.86 AV Regurgitation 2D LVOT Area 2.5 cm2 Ventricles Name Value Normal LV Dimensions 2D/MM IVS Diastolic Thickness (2D) 1.3 cm 0.6-1.0 LVID Diastole (2D) 3.9 cm 3.8-5.2 LVIW Diastolic Thickness (2D) 1.2 cm 0.6-0.9 LVID Systole (2D) 2.6 cm 2.2-3.5 LVOT Diameter 1.8 cm LV Mass (2D Cubed) 174.92 g 67.00-162.00 LV Mass Index (2D Cubed) 86 g/m2 43-95 Relative Wall Thickness (2D) 0.62 <=0.42 LV Fractional Shortening/Ejection Fraction 2D/MM LV Fractional Shortening (2D) 33 % 27-45 LV EF (2D Teichholz) 62 % LV Diastolic Volume (4C MOD) 73 ml LV EF (4C MOD) 62 % LV Diastolic Volume (2C MOD) 69 ml LV EF (2C MOD) 66 % LV Diastolic Volume (BP MOD) 72 ml 46-106 LV Diastolic Volume Index (BP MOD) 35 ml/m2 29-61 LV Systolic Volume (BP MOD) 26 ml 14-42 LV Systolic Volume Index (BP MOD) 13 ml/m2 8-24 LV EF (BP MOD) 64 % 54-74 LV Diastolic Length (4C) 7.4 cm LV Systolic Length (4C) 7.0 cm LV Stroke Volume (4C MOD) 45 ml Atria Name Value Normal LA Dimensions LA Volume (4C A-L) 64 ml LA Volume (BP A-L) 72 ml RA Dimensions RA Area (4C) 14.4 cm2 <=18.0 Report Signatures
[2025-03-28 09:57] LABS: Hematocrit 28.8 % (37.0-47.0); Hemoglobin 8.7 g/dL (12.0-15.0); Immature Granulocyte Percent A 0.6 % (0-0.5); Lymphocytes Absolute Auto 1.34 K/mm3 (0.9-3.2); Mean Corpuscular HGB Conc 30.2 g/dl (32-36); Mean Corpuscular Hemoglobin 26.6 pg (26-34); Mean Corpuscular Volume 88.1 fl (80-100); Nucleated Red Blood Cells Absolute Auto 0.000 K/mm3 (0.0-0.012); Nucleated Red Blood Cells Perc 0.0 % (0.0-0.2); Platelet Count Result 218 k/mm3 (150-375); Red Blood Count 3.27 M/mm3 (4.2-5.4); White Blood Count 5.3 K/mm3 (4.5-10.0)
[2025-03-28 10:10] LABS: Alanine Aminotransferase 16 U/L (6-35); Albumin Level 3.3 g/dL (3.5-5.1); Alkaline Phosphatase 104 U/L (38-126); Anion Gap 6 mmol/L (4-12); Aspartate Amino Transferase 24 U/L (14-36); Bilirubin,Total 0.1 mg/dL (0.2-1.3); Blood Urea Nitrogen 9 mg/dL (7-17); Calcium 8.6 mg/dL (8.4-10.2); Carbon Dioxide 24 mmol/L (22-30); Chloride 101 mmol/L (98-107); Estimated CRCL calculation 89 ml/min; Estimated Glomerular Filt Rate > 60; Glucose 141 mg/dL (65-110); Magnesium 1.9 mg/dL (1.6-2.3); Potassium 4.8 mmol/L (3.4-5.0); Sodium 131 mmol/L (137-145); Total Protein 6.0 g/dL (6.3-8.2)
[2025-03-28] MEDS: oxyCODONE/ACETAMINOPHEN (*CRX) 5-325 MG TABLET 1 TABLET PO ×2 (10:50→21:35)
[2025-03-28] MEDS: VENLAFAXINE HCL XR 37.5 MG CAP PO (10:50)
[2025-03-28] MEDS: FUROSEMIDE 20 MG TABLET PO ×2 (10:50→17:40)
[2025-03-28] MEDS: SENNA/DOCUSATE SODIUM TABLET 2 TAB PO ×2 (10:52→17:39)
[2025-03-28] MEDS: SODIUM CHLORIDE 1 GM TABLET PO ×2 (10:52→17:40)
[2025-03-28] MEDS: DOCUSATE SODIUM 100 MG CAPSULE 200 MG PO ×2 (10:52→17:39)
[2025-03-28] MEDS: MEMANTINE 5 MG TABLET PO ×2 (10:52→21:36)
[2025-03-28] MEDS: ISOSORBIDE MONONITRATE 30 MG TAB.ER.24H PO (10:53)
[2025-03-28] MEDS: SPIRONOLACTONE 25 MG TABLET PO (10:53)
[2025-03-28] MEDS: ONDANSETRON HCL ODT 4 MG TABLET PO ×2 (10:53→17:40)
[2025-03-28] MEDS: ARTIFICIAL TEARS OPHTH SOLN 15 ML BOTTLE 2 DROP EACH EYE ×2 (10:54→21:38)
[2025-03-28] MEDS: FLUTICASONE PROPIONATE 0.05% NA SPR 16 GM BTL (*BKC) 1 SPRAY NASAL (10:54)
[2025-03-28] MEDS: clonazePAM (*CRX) 0.5 MG TABLET PO ×2 (10:54→21:37)
[2025-03-28] MEDS: FAMCICLOVIR 250 MG TABLET PO ×2 (10:55→21:37)
[2025-03-28] MEDS: PREGABALIN (*CRX) 75 MG CAPSULE 150 MG PO ×2 (10:55→17:39)
[2025-03-28] MEDS: PRIMIDONE 50 MG TABLET 200 MG BY MOUTH ×2 (10:55→17:40)
[2025-03-28] MEDS: FAMOTIDINE 10 MG TABLET PO (10:55)
--- NOTE | 2025-03-28 12:13 | PCPTNOTE ---
Pt is dependent at baseline requiring Jhonny lift for mobility and assist with ADLs. Physical therapy order discharge due to pt being at baseline mobility.
--- NOTE | 2025-03-28 12:27 | PCOTNOTE ---
Pt [place] a [place] [facility]. Pt is dependent with a uriel lift and assisted with all ADLs at the [facility]. Pt has no acute skilled OT need and plan is for her to return to the [facility] likely today. Will d/c OT orders.
--- NOTE | 2025-03-28 14:20 | PM.IMHP ---
H&P: HPI History of Present Illness Date/Time: 03/28/25 14:20 Chief Complaint: Syncope Patient is a poor historian Narrative: 74-year-old female presenting with past medical history of hypertension, on multiple medications presented with low blood pressures and fainting. Patient had a shingles shot 4 days ago. Since then she has been having fatigue body aches nausea and decreased p.o. intake. She went to her physical therapy earlier this morning and almost fainted. They checked her blood pressure that time if 60/30 and she appeared pale. She got 1 L of fluids from EMS improved to 90 over 60. Patient in general is poor historian, does not recall sequence of events what happened yesterday. Blood pressure is elevated this morning. Review of Systems Review of Systems: All systems reviewed & are unremarkable except as noted in HPI and below PMFSH Past Medical History Medical History History of atrial fibrillation Failure to thrive CVA (cerebral vascular accident) Chronic anticoagulation Kidney stone Chronic anemia Chronic respiratory failure with hypoxia, on home oxygen therapy Bipolar disorder Gastroesophageal reflux disease Hyperlipidemia Hypertension Obstructive sleep apnea intolerant to CPAP Left tibial fracture Chronic hyponatremia Shingles Anxiety Depression Gastroparesis Diverticulitis Asthma Epilepsy no longer on medication Seasonal allergies Surgical History Surgical History History of left above knee amputation History of right shoulder replacement History of cholecystectomy History of left knee replacement History of hysterectomy History of open reduction and internal fixation (ORIF) procedure Left tibia and right ankle. History of appendectomy History of tonsillectomy Family History Family History Mother Suicide Depression Heart disease Hypertension Heart failure Sibling Suicide Father Diabetes mellitus Emphysema lung Social History Social History Social History: Surrogate medical decision maker: Martina Rodney, daughter. Code status: Full code. Smoking status: Never smoker Second hand tobacco smoke exposure: No Alcohol intake: former Substance use: never Substance use type: does not use Do You Feel Safe in your Home?: Yes Lack of Transportation: No Lack of Food: Never True Current Housing: I Have Housing Concerned About Future Housing: No Difficulty Paying Gas/Electric Bills: No Difficulty Paying for Meds: No Currently Unemployed: No Education: High School Diploma/GED Difficulty w/ Childcare or Family Care: No Living arrangements: long[place]term village Occupation/Education: retired Spiritual care concerns: No Agree to blood products: No Meds Home Medications and Allergies Home Medications ?Medication ?Instructions ?Recorded ?Confirmed ?Type fluticasone propionate 50 1 spray intranasal DAILY 09/09/19 03/27/25 History mcg/actuation nasal spray,suspension docusate sodium 100 mg tablet 200 mg PO BID Constipation 05/31/20 03/27/25 History amlodipine 10 mg tablet 10 mg PO DAILY 04/23/24 03/27/25 History bisacodyl 5 mg tablet,delayed 10 mg PO HS PRN Constipation 04/23/24 03/27/25 History release (Dulcolax (bisacodyl)) guaifenesin 1,200 mg tablet, 1,200 mg PO Q12H 04/23/24 03/27/25 History extended release 12 hr (Mucinex) memantine 5 mg tablet 5 mg PO BID 04/23/24 03/27/25 History ondansetron HCl 4 mg tablet 4 mg PO TID 04/23/24 03/27/25 History pregabalin 150 mg capsule (Lyrica) 150 mg PO BID #14 caps 05/04/24 03/27/25 Rx isosorbide mononitrate 30 mg 30 mg PO DAILY 08/06/24 03/27/25 History tablet,extended release 24 hr lidocaine 5 % topical patch 2 patch topical HS 08/06/24 03/27/25 History (Lidoderm) magnesium hydroxide 400 mg/5 mL 30 ml PO DAILY PRN constipation 08/06/24 03/27/25 History oral suspension (Gentle Laxative (magnesium hydroxide)) rivaroxaban 20 mg tablet (Xarelto) 20 mg PO DAILY@1700 #60 tabs 10/07/24 03/27/25 Rx irbesartan 150 mg tablet 300 mg (2 x 150 mg) PO QAM #30 tabs 10/12/24 03/27/25 Rx oxycodone-acetaminophen 5 mg-325 1 tablet PO Q8H PRN Pain Rated 10/12/24 03/27/25 Rx mg tablet 7-10 #10 tabs atorvastatin 10 mg tablet (Lipitor) 10 mg PO HS 01/18/25 03/27/25 History buspirone 10 mg tablet 10 mg PO TID 01/18/25 03/27/25 History clonazepam 0.5 mg tablet 0.5 mg PO Q12H 01/18/25 03/27/25 History famciclovir 250 mg tablet 250 mg PO Q12H 01/18/25 03/27/25 History magnesium citrate 300 ml PO DAILY PRN constipation 01/18/25 03/27/25 History primidone 50 mg tablet See Rx Instructions .Route .COMPLEX 01/18/25 03/27/25 History sennosides 8.6 mg-docusate sodium 2 tab-cap PO BID 01/18/25 03/27/25 History 50 mg tablet (Senna Plus) spironolactone 25 mg tablet 25 mg PO DAILY 01/18/25 03/27/25 History famotidine 10 mg tablet (Heartburn 10 mg PO DAILY 02/08/25 03/27/25 History Relief (famotidine)) tizanidine 2 mg tablet 2 mg PO Q12H 02/08/25 03/27/25 History ipratropium 0.5 mg-albuterol 3 mg 3 ml inhalation Q6HRT PRN Wheezing 02/12/25 03/27/25 Rx (2.5 mg base)/3 mL nebulization #30 vials soln polyethylene glycol 3350 17 17 g PO DAILY 02/19/25 03/27/25 History gram/dose oral powder polyvinyl alcohol 1.4 % eye drops 2 drp EACH EYE BID 02/19/25 03/27/25 History (Artificial Tears (polyvinyl alcohol)) sodium chloride 1,000 mg soluble 1,000 mg PO BID 02/19/25 03/27/25 History tablet furosemide 20 mg tablet 20 mg PO BID 30 days #60 tabs 03/01/25 03/27/25 Rx clonidine 0.1 mg/24 hr weekly 1 patch transdermal WEEKLY 03/27/25 03/27/25 History transdermal patch ([id number]-9) hydralazine 10 mg tablet 10 mg PO Q8H 03/27/25 03/27/25 History venlafaxine 37.5 mg 37.5 mg PO DAILY 03/27/25 03/27/25 History capsule,extended release 24 hr (Effexor XR) Allergies Allergy/AdvReac Type Severity Reaction Status Date / Time Fish Containing Products Allergy Severe Dyspnea / Verified 03/27/25 13:09 SOB Iodinated Contrast Media Allergy Intermediate HIVES, RED Verified 03/27/25 13:09 FACE iodine Allergy Unknown Unknown Verified 03/27/25 13:09 Barbiturates Allergy Unknown Verified 03/27/25 13:09 bupivacaine Allergy Unknown Verified 03/27/25 13:09 diazepam (From Valium) Allergy Unknown Verified 03/27/25 13:09 latex Allergy Unknown Verified 03/27/25 13:09 menthol Allergy Unknown Verified 03/27/25 13:09 Sulfa (Sulfonamide Allergy Unknown Verified 03/27/25 13:09 Antibiotics) thiopental (From Pentothal) Allergy Unknown Verified 03/27/25 13:09 wool Allergy Unknown Verified 03/27/25 13:09 Vital Signs Vital Signs - 24 hr 03/27/25 15:04 03/27/25 15:30 03/27/25 15:45 Temperature Pulse Rate 81 74 72 Respiratory Rate 12 11 L 11 L Blood Pressure 138/63 131/61 124/57 L Pulse Oximetry 99 100 100 Oxygen Delivery Oxygen Flow Rate 03/27/25 16:00 03/27/25 16:30 03/27/25 16:45 Temperature Pulse Rate 72 71 72 Respiratory Rate 11 L 11 L 10 L Blood Pressure 112/56 L 96/53 L 96/60 L Pulse Oximetry 99 100 100 Oxygen Delivery Oxygen Flow Rate 03/27/25 17:00 03/27/25 17:15 03/27/25 18:21 Temperature 98.6 F Pulse Rate 74 81 80 Respiratory Rate 10 L 14 15 Blood Pressure 148/62 H 154/63 H 182/76 H Pulse Oximetry 98 Oxygen Delivery Oxygen Flow Rate 03/27/25 18:36 03/27/25 20:00 03/27/25 20:00 Temperature 98.5 F 98.1 F Pulse Rate 88 96 Respiratory Rate 13 18 Blood Pressure 169/57 H 180/84 H Pulse Oximetry 98 99 99 Oxygen Delivery Nasal Cannula Oxygen Flow Rate 2 03/27/25 20:00 03/28/25 00:00 03/28/25 04:00 Temperature Pulse Rate 99 91 94 Respiratory Rate Blood Pressure Pulse Oximetry Oxygen Delivery Oxygen Flow Rate 03/28/25 05:21 03/28/25 10:00 03/28/25 14:00 Temperature 97.9 F 97.2 F L Pulse Rate 93 92 92 Respiratory Rate 18 18 Blood Pressure 179/71 H 178/68 H Pulse Oximetry 100 100 Oxygen Delivery Oxygen Flow Rate Exam Const: General: no acute distress HENMT: Face/Nose/Sinus: Normal nares present Mouth: Yes moist mucous membranes Eyes: Sclera: sclerae normal Neck: Neck: supple Resp: Effort & Inspection: normal respiratory effort Auscultation: clear to auscultation bilaterally Cardio: Rate: regular rate GI: GI Palp: Yes Soft to palpation Auscultation: normal bowel sounds Skin: General skin exam: normal color Neuro: Speech: normal speech Extrem: General: pedal edema Psych: Affect: normal affect H&P: Results Labs Labs: Short CBC 03/28/25 Range/Units 09:48 WBC 5.3 (4.5-10.0) K/mm3 Hgb 8.7 L (12.0-15.0) g/dL Hct 28.8 L (37.0-47.0) % Plt Count 218 (150-375) k/mm3 BMP 03/28/25 09:48 Sodium 131 L Potassium 4.8 Chloride 101 Carbon Dioxide 24 BUN 9 D Creatinine 0.49 L Glucose 141 H Calcium 8.6 Liver Function 03/28/25 Range/Units 09:48 Total Bilirubin 0.1 L (0.2-1.3) mg/dL AST 24 (14-36) U/L ALT 16 (6-35) U/L Alkaline Phosphatase 104 (38-126) U/L Albumin 3.3 L (3.5-5.1) g/dL Assessment and Plan Assessment and plan (1) Polypharmacy: Code(s): Z79.899 - Other fdc (current) drug therapy Status: Acute (2) Status post fall: Code(s): Z91.81 - History of falling Status: Acute (3) HTN (hypertension): Qualifiers: Hypertension type: essential hypertension Qualified Code(s): I10 - Essential (primary) hypertension Code(s): I10 - Essential (primary) hypertension Status: Chronic (4) Atrial fibrillation with RVR: Code(s): I48.91 - Unspecified atrial fibrillation Status: Acute Plan 74-year-old female with multiple medications, history of hypertension presenting with syncope, was noted to have a low blood pressure 60s while doing physical therapy, responded well to 1 L of fluid, systolic came up to 90s. Her blood pressure this morning was elevated 1. Syncope: ? Etiology Blood pressure related ? Any other etiology Continue tele monitoring Obtain CT head, carotid ultrasound, echocardiogram Will resume some of the blood pressure medications and monitor PT/OT as tolerated 2. History of dementia: Continue with Namenda 3. DVT prophylaxis: Resume home dose Xarelto 4. Disposition: Admit to telemetry medicine Quality VTE Prophylaxis VTE prophylaxis: pharmacologic ordered Hospitalist [facility] Advance Care Plan I have confirmed that the patient's Advanced Care Plan is present, code status is documented, or surrogate decision maker is listed in patient medical record.: Yes Medication Reconciliation I have utilized all available resources to obtain, update and review the patients current medications (includes all prescriptions, OTC, herbals, cannabis, and nutritional supplements).: Yes
[2025-03-28] MEDS: PERFLUTREN LIPID MICROSPHERES 1.5 ML VIAL DILUTED TO 10 ML TOTAL VOLUME IV PUSH (15:52)
--- NOTE | 2025-03-28 15:53 | IVDEFINITY ---
Prior to administration of IV Definity the patient was educated on the risks and benefits of the imaging enhancing agent including potential adverse side effects. The patient verbalized understanding. Allergies were verified. No exclusion criteria were identified and at least one of the following inclusion criteria were met: 1) physician request, 2) patient technically difficult to image (per the [place] [employer] guidelines of two or more segments not discernable within the apical view), or 3) questionable left ventricular function. ?
[2025-03-28] MEDS: RIVAROXABAN 20 MG TABLET PO (17:39)
[2025-03-28] MEDS: ATORVASTATIN 10 MG TABLET PO (21:37)
[2025-03-28] MEDS: LIDOCAINE 5% PATCH 2 PATCH TOPICAL (21:38)
[2025-03-29] VITALS (14 sets, daily range): BP systolic 145–196; BP diastolic 56–87; PULSE 79–107; RESP 18; TEMP 36.6–36.9; O2SAT 96–100
[2025-03-29] MEDS: oxyCODONE/ACETAMINOPHEN (*CRX) 5-325 MG TABLET 1 TABLET PO ×3 (04:57→21:27)
[2025-03-29 06:17] LABS: Hematocrit 28.6 % (37.0-47.0); Hemoglobin 8.7 g/dL (12.0-15.0); Immature Granulocyte Percent A 0.8 % (0-0.5); Lymphocytes Absolute Auto 1.96 K/mm3 (0.9-3.2); Mean Corpuscular HGB Conc 30.4 g/dl (32-36); Mean Corpuscular Hemoglobin 26.8 pg (26-34); Mean Corpuscular Volume 88.0 fl (80-100); Nucleated Red Blood Cells Absolute Auto 0.000 K/mm3 (0.0-0.012); Nucleated Red Blood Cells Perc 0.0 % (0.0-0.2); Platelet Count Result 235 k/mm3 (150-375); Red Blood Count 3.25 M/mm3 (4.2-5.4); White Blood Count 6.5 K/mm3 (4.5-10.0)
[2025-03-29 06:40] LABS: Anion Gap 4 mmol/L (4-12); Blood Urea Nitrogen 12 mg/dL (7-17); Calcium 8.5 mg/dL (8.4-10.2); Carbon Dioxide 30 mmol/L (22-30); Chloride 98 mmol/L (98-107); Estimated CRCL calculation 80 ml/min; Estimated Glomerular Filt Rate > 60; Glucose 102 mg/dL (65-110); Potassium 4.3 mmol/L (3.4-5.0); Sodium 132 mmol/L (137-145)
--- NOTE | 2025-03-29 08:13 | P.PNIM_ITS ---
Progress Note: A&P Assessment and Plan (1) Syncope: Code(s): R55 - Syncope and collapse Status: Acute Assessment and Plan: Presenting to hospital for syncope after having low blood pressures in the 60s systolic while doing physical therapy Blood pressures responded well to fluids and are now hypertensive on chart review Etiology: hypotension possibly related to polypharmacy as patient is on multiple antihypertensives Patient now hypertensive, resuming some antihypertensives from home regimen including amlodipine, imdur, lasix, and irbesartan Resume hydralazine as appropriate Patient states she was recently started on clonidine patch which was supposed to be stopped after recent hospitalization however she continued to receive this at the facility, patchy again discontinued. Tele monitor UA unremarkable, viral panel negative, chest xr unremarkable UDS ordered Recent pacemaker (Medtronic Micra AV leadless pacemaker) placed on 02/[address] Dominguez, interrogate pacemaker CT head unremarkable Echo: LVEF 65-70% with grade I diastolic dysfunction Carotid doppler less than 50% stenosis of bilateral ICA (2) HTN (hypertension): Qualifiers: Hypertension type: essential hypertension Qualified Code(s): I10 - Essential (primary) hypertension Code(s): I10 - Essential (primary) hypertension Status: Chronic Assessment and Plan: Chronic, continue home medications - lasix 20 mg BID - irbesartan 300 mg daily - imdur 30 mg daily - amlodipine 10 mg daily - hydralazine 10 mg q8h remains on hold, resume as appropriate - patient states she was recently started on clonidine patch which was supposed to be stopped after recent hospitalization however she continued to receive this at the facility, patchy again discontinued. Given ongoing hypertension issues requiring several antihypertensives, will order a renal us to assess for ALIA. (3) Chronic respiratory failure with hypoxia, on home oxygen therapy: Code(s): J96.11 - Chronic respiratory failure with hypoxia; Z99.81 - Dependence on supplemental oxygen Status: Acute Assessment and Plan: Chronic, continue home oxygen supplementation of 2L NC (4) Atrial fibrillation: Code(s): I48.91 - Unspecified atrial fibrillation Status: Acute Assessment and Plan: Chronic, continue home medications - xarelto 20 mg daily - not on an antiarrhythmic or beta geoff, rate remains well controlled with paced (5) Congestive heart failure: Code(s): I50.9 - Heart failure, unspecified Status: Acute Assessment and Plan: Chronic, does not appear in acute exacerbation Continue home medications lasix 20 mg BID irbesartan 300 mg daily spironolactone 25 mg daily Time Spent With Patient Time with patient: 25 - 35 minutes Subjective Date/time seen: 03/29/25 08:13 Interval history: 74 year old female with PMH of chronic respiratory failure on supplemental O2 (2L NC), CVA,atrial fibrillation, complete heart block s/p pacemaker placement, CHF, bipolar disorder, anxiety, GERD, hyperlipidemia, hypertension, chronic hyponatremia, asthma, epilepsy not currently treated with antiepileptic medications and previous left BKA presents to the hospital for low blood pressures and fainting. Patient is pleasant lying comfortably in bed. She has no complaints at this time denying chest pain, shortness a breath, palpitations, nausea/vomiting, abdominal pain. Review of Systems Review of Systems: All systems reviewed & are unremarkable except as noted in HPI and below Exam Narrative: AF HR 90 RR 18 SPO2 96 2L baseline BP 175/66 General: female in no acute respiratory distress who is nontoxic appearing, lying semi recumbent in bed. HEENT: Normocephalic. Atraumatic. Extraocular movement intact. Sclera clear and anicteric. No facial asymmetry. Chest: Lungs are clear to auscultation bilaterally. No wheezes or crackles. CV: Heart was regular rate and rhythm. S1-S2. No murmurs, gallops, or rubs. Abd: Abdomen was soft. Nontender. Nondistended. Positive bowel sounds. Ext: No clubbing, cyanosis, or edema. Left AKA. Neuro: Patient is alert and oriented x4. Speech is clear. Psych: Normal mood and affect. Patient is pleasant and cooperative. Skin: Warm and dry. No rashes noted. Objective Data Vital Signs Vital Signs: Vital Signs - 24 hr 03/28/25 10:00 03/28/25 12:00 03/28/25 14:00 Temperature 97.2 F L Pulse Rate 92 85 92 Respiratory Rate 18 Blood Pressure 178/68 H Pulse Oximetry 100 Oxygen Delivery Oxygen Flow Rate Fraction of Inspired Oxygen 03/28/25 16:00 03/28/25 19:58 03/28/25 20:00 Temperature Pulse Rate 83 100 87 Respiratory Rate 20 18 Blood Pressure Pulse Oximetry 91 97 Oxygen Delivery Nasal Cannula Nasal Cannula Oxygen Flow Rate 2 2 Fraction of Inspired Oxygen 28 28 03/28/25 20:00 03/28/25 21:28 03/29/25 00:00 Temperature 97.9 F Pulse Rate 90 87 80 Respiratory Rate 18 Blood Pressure 205/79 H Pulse Oximetry 97 Oxygen Delivery Oxygen Flow Rate Fraction of Inspired Oxygen 03/29/25 00:35 03/29/25 04:00 03/29/25 05:57 Temperature 98 F Pulse Rate 80 93 Respiratory Rate 18 Blood Pressure 145/65 H 188/87 H Pulse Oximetry 96 Oxygen Delivery Oxygen Flow Rate Fraction of Inspired Oxygen Intake/Output Intake/Output: Intake & Output 03/26/25 03/27/25 03/28/25 03/29/25 23:59 23:59 23:59 23:59 Intake Total 1999 1280 250 Output Total 3000 400 Balance 1999 -3189 -427 Meds/Results Medications: Active Medications Generic Name Dose Route Start Last Admin Trade Name Freq PRN Reason Stop Dose Admin Albuterol/Ipratropium 3 ml 03/28/25 09:13 Ipratropium 0.5 Mg/Albuterol Sulfate 2.5 Mg Ampul.Neb 3 Ml INHALATION Q6HRT PRN Wheezing Amlodipine Besylate 10 mg 03/28/25 09:15 03/28/25 10:52 Amlodipine Besylate 10 Mg Tablet PO 10 mg DAILY KELIN Administration Artificial Tears 2 drop 03/28/25 09:45 03/28/25 21:38 Artificial Tears Ophth Soln 15 Ml Bottle EACH EYE 2 drop Q12HR KELIN Administration Atorvastatin Calcium 10 mg 03/28/25 21:00 03/28/25 21:37 Atorvastatin 10 Mg Tablet PO 10 mg HS KELIN Administration Bisacodyl 10 mg 03/28/25 09:13 Bisacodyl 5 Mg Tablet Ec PO HS PRN Constipation Buspirone HCl 10 mg 03/28/25 09:00 03/28/25 17:40 Buspirone Hcl 10 Mg Tablet PO 10 mg TID KELIN Administration Clonazepam 0.5 mg 03/28/25 09:15 03/28/25 21:37 Clonazepam (*Crx) 0.5 Mg Tablet PO 0.5 mg Q12HR KELIN Administration Clonidine HCl 1 patch 04/02/25 09:00 Clonidine 0.1 Mg/24 Hr Patch TRANSDERM Mo@0900 KELIN Docusate Sodium 200 mg 03/28/25 09:50 03/28/25 17:39 Docusate Sodium 100 Mg Capsule PO 200 mg BID KELIN Administration Famciclovir 250 mg 03/28/25 09:15 03/28/25 21:37 Famciclovir 250 Mg Tablet PO 250 mg Q12HR KELIN Administration Famotidine 10 mg 03/28/25 09:40 03/28/25 10:55 Famotidine 10 Mg Tablet PO 10 mg DAILY KELIN Administration Fluticasone Propionate 1 spray 03/28/25 09:40 03/28/25 10:54 Fluticasone Propionate 0.05% Na Spr 16 Gm Btl (*Bkc) NASAL 1 spray DAILY KELIN Administration Furosemide 20 mg 03/28/25 09:40 03/28/25 17:40 Furosemide 20 Mg Tablet PO 20 mg BID KELIN Administration Isosorbide Mononitrate 30 mg 03/28/25 09:40 03/28/25 10:53 Isosorbide Mononitrate 30 Mg Tab.Er.24h PO 30 mg DAILY KELIN Administration Lidocaine 2 patch 03/28/25 21:00 03/28/25 21:38 Lidocaine 5% Patch TOPICAL 2 patch HS KELIN Administration Memantine 5 mg 03/28/25 09:45 03/28/25 21:36 Memantine 5 Mg Tablet PO 5 mg Q12HR KELIN Administration Ondansetron HCl 4 mg 03/28/25 09:45 03/28/25 17:40 Ondansetron Hcl Odt 4 Mg Tablet PO 4 mg TID KELIN Administration Oxycodone/Acetaminophen 1 tablet 03/28/25 09:13 03/29/25 04:57 Oxycodone/Acetaminophen (*Crx) 5-325 Mg Tablet PO 1 tablet Q8H PRN Administration Pain Rated 7-10 Polyethylene Glycol 17 gm 03/28/25 09:45 03/28/25 10:50 Polyethylene Glycol 3350 17 Gm Powd.Pack PO 17 gm DAILY KELIN Administration Pregabalin 150 mg 03/28/25 09:45 03/28/25 17:39 Pregabalin (*Crx) 75 Mg Capsule PO 150 mg BID KELIN Administration Primidone 200 mg 03/28/25 09:15 03/28/25 17:40 Primidone 50 Mg Tablet BY MOUTH 200 mg BID KELIN Administration Rivaroxaban 20 mg 03/28/25 17:00 03/28/25 17:39 Rivaroxaban 20 Mg Tablet PO 20 mg DAILY@1700 KELIN Administration Senna/Docusate Sodium 2 tab 03/28/25 09:50 03/28/25 17:39 Senna/Docusate Sodium Tablet PO 2 tab BID KELIN Administration Sodium Chloride 1 gm 03/28/25 09:45 03/28/25 17:40 Sodium Chloride 1 Gm Tablet PO 1 gm BID KELIN Administration Spironolactone 25 mg 03/28/25 09:45 03/28/25 10:53 Spironolactone 25 Mg Tablet PO 25 mg DAILY KELIN Administration Venlafaxine HCl 37.5 mg 03/28/25 09:45 03/28/25 10:50 Venlafaxine Hcl Xr 37.5 Mg Cap PO 37.5 mg DAILY KELIN Administration Radiology Results: ITS Impressions Chest X-Ray 03/27/25 14:47 IMPRESSION: 1: NO ACUTE CARDIOPULMONARY DISEASE. Head CT 03/28/25 18:32 IMPRESSION: 1. No acute intracranial abnormality. Carotid Doppler Study 03/28/25 19:03 IMPRESSION: 1. Less than 50% stenosis in the right internal carotid artery by sonographic criteria. 2. Less than 50% stenosis in the left internal carotid artery by sonographic criteria. Labs Labs: Laboratory Results - last 24 hr 03/28/25 03/29/25 09:48 05:51 WBC 5.3 6.5 RBC 3.27 L 3.25 L Hgb 8.7 L 8.7 L Hct 28.8 L 28.6 L MCV 88.1 88.0 MCH 26.6 26.8 MCHC 30.2 L 30.4 L RDW 15.2 H 15.1 H Plt Count 218 235 MPV 11.9 H 11.3 H Immature Gran % (Auto) 0.6 H 0.8 H Neut % (Auto) 48.4 41.3 L Lymph % (Auto) 25.[address] [place] % (Auto) 13.2 H 14.1 H Eos % (Auto) 12.2 H 13.5 H Baso % (Auto) 0.4 0.3 Lymph # (Auto) 1.[address] [place] # (Auto) 0.7 H 0.9 H Eos # (Auto) 0.7 H 0.9 H Baso # (Auto) 0.0 0.0 Abs Immat Gran (auto) 0.03 0.05 H Absolute Neuts (auto) 2.6 2.7 Absolute Nucleated RBC 0.000 0.000 Nucleated RBC % 0.0 0.0 Sodium 131 L 132 L Potassium 4.8 4.3 Chloride 101 98 Carbon Dioxide 24 30 Anion Gap 6 4 BUN 9 D 12 Creatinine 0.49 L 0.55 L Estim Creat Clear Calc 89 80 Estimated GFR > 60 > 60 Glucose 141 H 102 Calcium 8.6 8.5 Magnesium 1.9 Total Bilirubin 0.1 L AST 24 ALT 16 Alkaline Phosphatase 104 Total Protein 6.0 L Albumin 3.3 L Quality VTE Prophylaxis VTE prophylaxis: pharmacologic ordered
[2025-03-29] MEDS: PRIMIDONE 50 MG TABLET 200 MG BY MOUTH ×2 (09:24→16:24)
[2025-03-29] MEDS: SENNA/DOCUSATE SODIUM TABLET 2 TAB PO ×2 (09:25→16:24)
[2025-03-29] MEDS: PREGABALIN (*CRX) 75 MG CAPSULE 150 MG PO ×2 (09:25→16:24)
[2025-03-29] MEDS: FUROSEMIDE 20 MG TABLET PO ×2 (09:25→16:25)
[2025-03-29] MEDS: DOCUSATE SODIUM 100 MG CAPSULE 200 MG PO ×2 (09:25→16:25)
[2025-03-29] MEDS: SODIUM CHLORIDE 1 GM TABLET PO ×2 (09:25→16:25)
[2025-03-29] MEDS: FAMCICLOVIR 250 MG TABLET PO ×2 (09:25→20:41)
[2025-03-29] MEDS: MEMANTINE 5 MG TABLET PO ×2 (09:25→20:41)
[2025-03-29] MEDS: FAMOTIDINE 10 MG TABLET PO (09:25)
[2025-03-29] MEDS: ISOSORBIDE MONONITRATE 30 MG TAB.ER.24H PO (09:25)
[2025-03-29] MEDS: VENLAFAXINE HCL XR 37.5 MG CAP PO (09:26)
[2025-03-29] MEDS: clonazePAM (*CRX) 0.5 MG TABLET PO ×2 (09:26→20:41)
[2025-03-29] MEDS: SPIRONOLACTONE 25 MG TABLET PO (09:26)
[2025-03-29] MEDS: ONDANSETRON HCL ODT 4 MG TABLET PO ×3 (09:26→16:25)
[2025-03-29] MEDS: FLUTICASONE PROPIONATE 0.05% NA SPR 16 GM BTL (*BKC) 1 SPRAY NASAL (09:32)
[2025-03-29] MEDS: ARTIFICIAL TEARS OPHTH SOLN 15 ML BOTTLE 2 DROP EACH EYE ×2 (09:32→21:36)
[2025-03-29] MEDS: RIVAROXABAN 20 MG TABLET PO (16:25)
[2025-03-29 19:52] LABS: Cannabinoid Screen Urine Negative (Negative)
[2025-03-29] MEDS: ATORVASTATIN 10 MG TABLET PO (20:40)
[2025-03-29] MEDS: LIDOCAINE 5% PATCH 2 PATCH TOPICAL (21:29)
[2025-03-30] VITALS (10 sets, daily range): BP systolic 143–163; BP diastolic 56–71; PULSE 76–109; RESP 14–20; TEMP 36.4–36.8; O2SAT 98–100
[2025-03-30] MEDS: oxyCODONE/ACETAMINOPHEN (*CRX) 5-325 MG TABLET 1 TABLET PO ×3 (05:04→21:14)
[2025-03-30 06:51] LABS: Hematocrit 29.5 % (37.0-47.0); Hemoglobin 8.9 g/dL (12.0-15.0); Mean Corpuscular HGB Conc 30.2 g/dl (32-36); Mean Corpuscular Hemoglobin 26.8 pg (26-34); Mean Corpuscular Volume 88.9 fl (80-100); Platelet Count Result 283 k/mm3 (150-375); Red Blood Count 3.32 M/mm3 (4.2-5.4); White Blood Count 8.2 K/mm3 (4.5-10.0)
[2025-03-30 07:12] LABS: Alanine Aminotransferase 16 U/L (6-35); Albumin Level 3.1 g/dL (3.5-5.1); Alkaline Phosphatase 91 U/L (38-126); Anion Gap 3 mmol/L (4-12); Aspartate Amino Transferase 23 U/L (14-36); Bilirubin,Total < 0.1 mg/dL (0.2-1.3); Blood Urea Nitrogen 11 mg/dL (7-17); Calcium 8.2 mg/dL (8.4-10.2); Carbon Dioxide 31 mmol/L (22-30); Chloride 94 mmol/L (98-107); Estimated CRCL calculation 69 ml/min; Estimated Glomerular Filt Rate > 60; Glucose 94 mg/dL (65-110); Potassium 4.4 mmol/L (3.4-5.0); Sodium 128 mmol/L (137-145); Total Protein 5.7 g/dL (6.3-8.2)
--- NOTE | 2025-03-30 07:55 | P.PNIM_ITS ---
Progress Note: A&P Assessment and Plan (1) Syncope: Code(s): R55 - Syncope and collapse Status: Acute Assessment and Plan: Presenting to hospital for syncope after having low blood pressures in the 60s systolic while doing physical therapy Blood pressures responded well to fluids and are now hypertensive on chart review Etiology: hypotension possibly related to polypharmacy as patient is on multiple antihypertensives Patient now hypertensive, resuming some antihypertensives from home regimen including amlodipine, imdur, lasix, and irbesartan, and hydralazine Patient states she was recently started on clonidine patch which was supposed to be stopped after recent hospitalization however she continued to receive this at the facility, patchy again discontinued. Patient now stating that she was recently on hydralazine 50 mg tid prior to admission, however this is not noted on home med list. Despite that if this was the case that could also be a reason for the hypotension. Since resuming the hy dralazine 10 mg tid blood pressures have improved and remain in the 140 systolic at this time. Tele monitor UA unremarkable, viral panel negative, chest xr unremarkable UDS positive for barbiturates, possible cross reactivity with Effexor Recent pacemaker (Medtronic Micra AV leadless pacemaker) placed on 02/[address] Dominguez, interrogate pacemaker CT head unremarkable Echo: LVEF 65-70% with grade I diastolic dysfunction Carotid doppler less than 50% stenosis of bilateral ICA (2) HTN (hypertension): Qualifiers: Hypertension type: essential hypertension Qualified Code(s): I10 - Essential (primary) hypertension Code(s): I10 - Essential (primary) hypertension Status: Chronic Assessment and Plan: Chronic, continue home medications - lasix 20 mg BID - irbesartan 300 mg daily - imdur 30 mg daily - amlodipine 10 mg daily - hydralazine 10 mg q8h - patient states she was recently started on clonidine patch which was supposed to be stopped after recent hospitalization however she continued to receive this at the facility, patchy again discontinued. Given ongoing hypertension issues requiring several antihypertensives, will order a renal us to assess for ALIA. US unremarkable. Patient now stating that she was recently on hydralazine 50 mg tid prior to admission, however this is not noted on home med list. Despite that if this was the case that could also be a reason for the hypotension. Since resuming the hydralazine 10 mg tid blood pressures have improved and remain in the 140 systolic at this time. (3) Chronic respiratory failure with hypoxia, on home oxygen therapy: Code(s): J96.11 - Chronic respiratory failure with hypoxia; Z99.81 - Dependence on supplemental oxygen Status: Acute Assessment and Plan: Chronic, continue home oxygen supplementation of 2L NC (4) Atrial fibrillation: Code(s): I48.91 - Unspecified atrial fibrillation Status: Acute Assessment and Plan: Chronic, continue home medications - xarelto 20 mg daily - not on an antiarrhythmic or beta geoff, rate remains well controlled with paced (5) Congestive heart failure: Code(s): I50.9 - Heart failure, unspecified Status: Acute Assessment and Plan: Chronic, does not appear in acute exacerbation Continue home medications lasix 20 mg BID irbesartan 300 mg daily spironolactone 25 mg daily Subjective Date/time seen: 03/30/25 07:55 Interval history: 74 year old female with PMH of chronic respiratory failure on supplemental O2 (2L NC), CVA,atrial fibrillation, complete heart block s/p pacemaker placement, CHF, bipolar disorder, anxiety, GERD, hyperlipidemia, hypertension, chronic hyponatremia, asthma, epilepsy not currently treated with antiepileptic medications and previous left BKA presents to the hospital for low blood pressures and fainting. Patient is pleasant lying comfortably in bed. She states that she is feeling much better today and has no complaints at this time denying any chest pain, shortness a breath, palpitations, nausea/vomiting, abdominal pain, and dizziness/lightheadedness. Patient now stating that she was recently on hydralazine 50 mg tid prior to admission, however this is not noted on home med list. Despite that if this was the case that could also be a reason for the hypotension. Since resuming the hydralazine 10 mg tid blood pressures have improved and remain in the 140 systolic at this time. Review of Systems Review of Systems: All systems reviewed & are unremarkable except as noted in HPI and below Exam Narrative: AF HR 102 RR 20 SPo2 100 2LNC baseline BP 143/68 General: female in no acute respiratory distress who is nontoxic appearing, sitting up in bed. HEENT: Normocephalic. Atraumatic. Extraocular movement intact. Sclera clear and anicteric. No facial asymmetry. Chest: Lungs are clear to auscultation bilaterally. No wheezes or crackles. CV: Heart was regular rate and rhythm. S1-S2. No murmurs, gallops, or rubs. Abd: Abdomen was soft. Nontender. Nondistended. Positive bowel sounds. Ext: No clubbing, cyanosis, or edema. Left AKA. Neuro: Patient is alert and oriented x4. Speech is clear. Objective Data Vital Signs Vital Signs: Vital Signs - 24 hr 03/29/25 08:00 03/29/25 08:00 03/29/25 10:37 Temperature Pulse Rate 79 Respiratory Rate Blood Pressure 196/68 H Pulse Oximetry 98 Oxygen Delivery Nasal Cannula Oxygen Flow Rate 2 03/29/25 12:00 03/29/25 13:26 03/29/25 14:00 Temperature 97.9 F Pulse Rate 90 94 Respiratory Rate 18 Blood Pressure 175/66 H 146/56 H Pulse Oximetry 100 Oxygen Delivery Oxygen Flow Rate 03/29/25 16:00 03/29/25 20:05 03/29/25 20:27 Temperature 98.5 F Pulse Rate 85 107 H 106 H Respiratory Rate 18 Blood Pressure 187/67 H Pulse Oximetry 96 Oxygen Delivery Oxygen Flow Rate 03/29/25 21:22 03/29/25 21:36 03/30/25 00:03 Temperature Pulse Rate 90 Respiratory Rate Blood Pressure 160/69 H Pulse Oximetry 96 Oxygen Delivery Nasal Cannula Oxygen Flow Rate 2 03/30/25 04:05 03/30/25 05:11 Temperature 97.7 F Pulse Rate 80 76 Respiratory Rate 16 Blood Pressure 145/71 H Pulse Oximetry 100 Oxygen Delivery Oxygen Flow Rate Intake/Output Intake/Output: Intake & Output 03/27/25 03/28/25 03/29/25 03/30/25 23:59 23:59 23:59 23:59 Intake Total 1999 1280 1190 750 Output Total 3000 900 600 Balance 1999 -1720 290 150 Meds/Results Medications: Active Medications Generic Name Dose Route Start Last Admin Trade Name Freq PRN Reason Stop Dose Admin Albuterol/Ipratropium 3 ml 03/28/25 09:13 Ipratropium 0.5 Mg/Albuterol Sulfate 2.5 Mg Ampul.Neb 3 Ml INHALATION Q6HRT PRN Wheezing Amlodipine Besylate 10 mg 03/28/25 09:15 03/29/25 09:25 Amlodipine Besylate 10 Mg Tablet PO 10 mg DAILY KELIN Administration Artificial Tears 2 drop 03/28/25 09:45 03/29/25 21:36 Artificial Tears Ophth Soln 15 Ml Bottle EACH EYE 2 drop Q12HR KELIN Administration Atorvastatin Calcium 10 mg 03/28/25 21:00 03/29/25 20:40 Atorvastatin 10 Mg Tablet PO 10 mg HS KELIN Administration Bisacodyl 10 mg 03/28/25 09:13 Bisacodyl 5 Mg Tablet Ec PO HS PRN Constipation Buspirone HCl 10 mg 03/28/25 09:00 03/29/25 16:25 Buspirone Hcl 10 Mg Tablet PO 10 mg TID KELIN Administration Clonazepam 0.5 mg 03/28/25 09:15 03/29/25 20:41 Clonazepam (*Crx) 0.5 Mg Tablet PO 0.5 mg Q12HR KELIN Administration Docusate Sodium 200 mg 03/28/25 09:50 03/29/25 16:25 Docusate Sodium 100 Mg Capsule PO 200 mg BID KELIN Administration Famciclovir 250 mg 03/28/25 09:15 03/29/25 20:41 Famciclovir 250 Mg Tablet PO 250 mg Q12HR KELIN Administration Famotidine 10 mg 03/28/25 09:40 03/29/25 09:25 Famotidine 10 Mg Tablet PO 10 mg DAILY KELIN Administration Fluticasone Propionate 1 spray 03/28/25 09:40 03/29/25 09:32 Fluticasone Propionate 0.05% Na Spr 16 Gm Btl (*Bkc) NASAL 1 spray DAILY KELIN Administration Furosemide 20 mg 03/28/25 09:40 03/29/25 16:25 Furosemide 20 Mg Tablet PO 20 mg BID KELIN Administration Hydralazine HCl 10 mg 03/29/25 10:42 03/29/25 20:41 Hydralazine Hcl 20 Mg/Ml Vial IV PUSH 10 mg Q8H PRN Administration systolic >180 Irbesartan 300 mg 03/30/25 09:00 Irbesartan 150 Mg Tablet PO QAM KELIN Isosorbide Mononitrate 30 mg 03/28/25 09:40 03/29/25 09:25 Isosorbide Mononitrate 30 Mg Tab.Er.24h PO 30 mg DAILY KELIN Administration Lidocaine 2 patch 03/28/25 21:00 03/29/25 21:29 Lidocaine 5% Patch TOPICAL 2 patch HS KELIN Administration Memantine 5 mg 03/28/25 09:45 03/29/25 20:41 Memantine 5 Mg Tablet PO 5 mg Q12HR KELIN Administration Ondansetron HCl 4 mg 03/28/25 09:45 03/29/25 16:25 Ondansetron Hcl Odt 4 Mg Tablet PO 4 mg TID KELIN Administration Oxycodone/Acetaminophen 1 tablet 03/28/25 09:13 03/30/25 05:04 Oxycodone/Acetaminophen (*Crx) 5-325 Mg Tablet PO 1 tablet Q8H PRN Administration Pain Rated 7-10 Polyethylene Glycol 17 gm 03/28/25 09:45 03/29/25 09:31 Polyethylene Glycol 3350 17 Gm Powd.Pack PO Not Given DAILY KELIN Pregabalin 150 mg 03/28/25 09:45 03/29/25 16:24 Pregabalin (*Crx) 75 Mg Capsule PO 150 mg BID KELIN Administration Primidone 200 mg 03/28/25 09:15 03/29/25 16:24 Primidone 50 Mg Tablet BY MOUTH 200 mg BID KELIN Administration Rivaroxaban 20 mg 03/28/25 17:00 03/29/25 16:25 Rivaroxaban 20 Mg Tablet PO 20 mg DAILY@1700 KELIN Administration Senna/Docusate Sodium 2 tab 03/28/25 09:50 03/29/25 16:24 Senna/Docusate Sodium Tablet PO 2 tab BID KELIN Administration Sodium Chloride 1 gm 03/28/25 09:45 03/29/25 16:25 Sodium Chloride 1 Gm Tablet PO 1 gm BID KELIN Administration Spironolactone 25 mg 03/28/25 09:45 03/29/25 09:26 Spironolactone 25 Mg Tablet PO 25 mg DAILY KELIN Administration Venlafaxine HCl 37.5 mg 03/28/25 09:45 03/29/25 09:26 Venlafaxine Hcl Xr 37.5 Mg Cap PO 37.5 mg DAILY KELIN Administration Radiology Results: ITS Impressions Chest X-Ray 03/27/25 14:47 IMPRESSION: 1: NO ACUTE CARDIOPULMONARY DISEASE. Head CT 03/28/25 18:32 IMPRESSION: 1. No acute intracranial abnormality. Carotid Doppler Study 03/28/25 19:03 IMPRESSION: 1. Less than 50% stenosis in the right internal carotid artery by sonographic criteria. 2. Less than 50% stenosis in the left internal carotid artery by sonographic criteria. Arterial/Peripheral Duplex 03/29/25 17:59 IMPRESSION: 1. No Doppler evidence of renal artery stenosis. Limited study. Labs Labs: Laboratory Results - last 24 hr 03/29/25 03/30/25 19:15 06:20 WBC 8.2 RBC 3.32 L Hgb 8.9 L Hct 29.5 L MCV 88.9 MCH 26.8 MCHC 30.2 L RDW 15.4 H Plt Count 283 MPV 11.1 H Sodium 128 L Potassium 4.4 Chloride 94 L Carbon Dioxide 31 H Anion Gap 3 L BUN 11 Creatinine 0.65 L Estim Creat Clear Calc 69 Estimated GFR > 60 Glucose 94 Calcium 8.2 L Total Bilirubin < 0.1 L AST 23 ALT 16 Alkaline Phosphatase 91 Total Protein 5.7 L Albumin 3.1 L Urine Opiates Screen Negative Urine Methadone Screen Negative Ur Barbiturates Screen Positive A Ur Phencyclidine Scrn Negative Ur Amphetamine Screen Negative U Benzodiazepines Scrn Negative Urine Cocaine Screen Negative U Cannabinoids Screen Negative Quality VTE Prophylaxis VTE prophylaxis: pharmacologic ordered
[2025-03-30] MEDS: DOCUSATE SODIUM 100 MG CAPSULE 200 MG PO ×2 (09:14→16:25)
[2025-03-30] MEDS: ONDANSETRON HCL ODT 4 MG TABLET PO ×3 (09:15→16:25)
[2025-03-30] MEDS: VENLAFAXINE HCL XR 37.5 MG CAP PO (09:15)
[2025-03-30] MEDS: PRIMIDONE 50 MG TABLET 200 MG BY MOUTH ×2 (09:15→21:16)
[2025-03-30] MEDS: MEMANTINE 5 MG TABLET PO ×2 (09:15→21:16)
[2025-03-30] MEDS: FAMOTIDINE 10 MG TABLET PO (09:15)
[2025-03-30] MEDS: SODIUM CHLORIDE 1 GM TABLET PO ×2 (09:15→16:25)
[2025-03-30] MEDS: SPIRONOLACTONE 25 MG TABLET PO (09:15)
[2025-03-30] MEDS: ISOSORBIDE MONONITRATE 30 MG TAB.ER.24H PO (09:16)
[2025-03-30] MEDS: FAMCICLOVIR 250 MG TABLET PO ×2 (09:16→21:50)
[2025-03-30] MEDS: SENNA/DOCUSATE SODIUM TABLET 2 TAB PO ×2 (09:16→16:25)
[2025-03-30] MEDS: clonazePAM (*CRX) 0.5 MG TABLET PO ×2 (09:16→21:17)
[2025-03-30] MEDS: FUROSEMIDE 20 MG TABLET PO ×2 (09:16→16:26)
[2025-03-30] MEDS: PREGABALIN (*CRX) 75 MG CAPSULE 150 MG PO ×2 (09:16→16:25)
[2025-03-30] MEDS: IRBESARTAN 150 MG TABLET 300 MG PO (09:16)
[2025-03-30] MEDS: FLUTICASONE PROPIONATE 0.05% NA SPR 16 GM BTL (*BKC) 1 SPRAY NASAL (09:18)
[2025-03-30] MEDS: ARTIFICIAL TEARS OPHTH SOLN 15 ML BOTTLE 2 DROP EACH EYE ×2 (09:18→21:43)
[2025-03-30] MEDS: RIVAROXABAN 20 MG TABLET PO (16:26)
[2025-03-30] MEDS: ATORVASTATIN 10 MG TABLET PO (21:14)
[2025-03-30] MEDS: LIDOCAINE 5% PATCH 2 PATCH TOPICAL (21:43)
[2025-03-31] VITALS (13 sets, daily range): BP systolic 131–188; BP diastolic 49–87; PULSE 79–108; RESP 16–18; TEMP 36.4–36.8; O2SAT 98–100
[2025-03-31] MEDS: oxyCODONE/ACETAMINOPHEN (*CRX) 5-325 MG TABLET 1 TABLET PO ×3 (04:58→20:55)
[2025-03-31 06:23] LABS: Hematocrit 31.3 % (37.0-47.0); Hemoglobin 9.4 g/dL (12.0-15.0); Mean Corpuscular HGB Conc 30.0 g/dl (32-36); Mean Corpuscular Hemoglobin 26.7 pg (26-34); Mean Corpuscular Volume 88.9 fl (80-100); Platelet Count Result 279 k/mm3 (150-375); Red Blood Count 3.52 M/mm3 (4.2-5.4); White Blood Count 7.9 K/mm3 (4.5-10.0)
[2025-03-31 06:40] LABS: Alanine Aminotransferase 17 U/L (6-35); Albumin Level 3.6 g/dL (3.5-5.1); Alkaline Phosphatase 92 U/L (38-126); Anion Gap 5 mmol/L (4-12); Aspartate Amino Transferase 23 U/L (14-36); Bilirubin,Total < 0.1 mg/dL (0.2-1.3); Blood Urea Nitrogen 14 mg/dL (7-17); Calcium 8.4 mg/dL (8.4-10.2); Carbon Dioxide 32 mmol/L (22-30); Chloride 92 mmol/L (98-107); Estimated CRCL calculation 67 ml/min; Estimated Glomerular Filt Rate > 60; Glucose 97 mg/dL (65-110); Potassium 4.7 mmol/L (3.4-5.0); Sodium 129 mmol/L (137-145); Total Protein 6.3 g/dL (6.3-8.2)
[2025-03-31] MEDS: clonazePAM (*CRX) 0.5 MG TABLET PO ×2 (09:10→21:15)
[2025-03-31] MEDS: ARTIFICIAL TEARS OPHTH SOLN 15 ML BOTTLE 2 DROP EACH EYE ×2 (09:10→20:57)
[2025-03-31] MEDS: FLUTICASONE PROPIONATE 0.05% NA SPR 16 GM BTL (*BKC) 1 SPRAY NASAL (09:10)
[2025-03-31] MEDS: DOCUSATE SODIUM 100 MG CAPSULE 200 MG PO ×2 (09:11→17:21)
[2025-03-31] MEDS: ISOSORBIDE MONONITRATE 30 MG TAB.ER.24H PO (09:11)
[2025-03-31] MEDS: PREGABALIN (*CRX) 75 MG CAPSULE 150 MG PO ×2 (09:11→17:20)
[2025-03-31] MEDS: SODIUM CHLORIDE 1 GM TABLET PO ×2 (09:11→17:21)
[2025-03-31] MEDS: SPIRONOLACTONE 25 MG TABLET PO (09:11)
[2025-03-31] MEDS: MEMANTINE 5 MG TABLET PO ×2 (09:11→20:55)
[2025-03-31] MEDS: PRIMIDONE 50 MG TABLET 200 MG BY MOUTH ×2 (09:11→20:54)
[2025-03-31] MEDS: IRBESARTAN 150 MG TABLET 300 MG PO (09:11)
[2025-03-31] MEDS: FUROSEMIDE 20 MG TABLET PO ×2 (09:11→17:21)
[2025-03-31] MEDS: SENNA/DOCUSATE SODIUM TABLET 2 TAB PO ×2 (09:12→17:20)
[2025-03-31] MEDS: FAMCICLOVIR 250 MG TABLET PO ×2 (09:12→20:55)
[2025-03-31] MEDS: VENLAFAXINE HCL XR 37.5 MG CAP PO (09:12)
[2025-03-31] MEDS: ONDANSETRON HCL ODT 4 MG TABLET PO ×3 (09:12→17:21)
[2025-03-31] MEDS: FAMOTIDINE 10 MG TABLET PO (09:13)
--- NOTE | 2025-03-31 11:30 | PM.IMPN ---
Progress Note: A&P Assessment and Plan (1) Syncope: Code(s): R55 - Syncope and collapse Status: Acute Assessment and Plan: Presenting to hospital for syncope after having low blood pressures in the 60s systolic while doing physical therapy Blood pressures responded well to fluids and are now hypertensive on chart review Etiology: hypotension possibly related to polypharmacy as patient is on multiple antihypertensives Patient now hypertensive, resuming some antihypertensives from home regimen including amlodipine, imdur, lasix, and irbesartan, and hydralazine Patient states she was recently started on clonidine patch which was supposed to be stopped after recent hospitalization however she continued to receive this at the facility, patchy again discontinued. Patient now stating that she was recently on hydralazine 50 mg tid prior to admission, however this is not noted on home med list. Despite that if this was the case that could also be a reason for the hypotension. Tele monitor UA unremarkable, viral panel negative, chest xr unremarkable UDS positive for barbiturates, possible cross reactivity with Effexor Recent pacemaker ([employer]tronic Micra AV leadless pacemaker) placed on 02/[address] Dominguez, interrogate pacemaker CT head unremarkable Echo: LVEF 65-70% with grade I diastolic dysfunction Carotid doppler less than 50% stenosis of bilateral ICA Patient remains alert and ariented. Denies any dizziness/lightheadedness. (2) HTN (hypertension): Qualifiers: Hypertension type: essential hypertension Qualified Code(s): I10 - Essential (primary) hypertension Code(s): I10 - Essential (primary) hypertension Status: Chronic Assessment and Plan: Chronic, continue home medications - lasix 20 mg BID - irbesartan 300 mg daily - imdur 30 mg daily - amlodipine 10 mg daily - hydralazine 10 mg q8h, increased to 25 mg q8H - patient states she was recently started on clonidine patch which was supposed to be stopped after recent hospitalization however she continued to receive this at the facility, patchy again discontinued. -Patient now stating that she was recently on hydralazine 50 mg tid prior to admission, however this is not noted on home med list. Despite that if this was the case that could also be a reason for the hypotension. Given ongoing hypertension issues requiring several antihypertensives, will order a renal us to assess for ALIA. US unremarkable. Patients blood pressure again elevated into the 180s overnight and this morning despite the antihypertensives. Will increase hydralazine from 10 mg to 25 mg q8H. Thus far blood pressures remain stable. Continue to monitor. (3) Chronic respiratory failure with hypoxia, on home oxygen therapy: Code(s): J96.11 - Chronic respiratory failure with hypoxia; Z99.81 - Dependence on supplemental oxygen Status: Acute Assessment and Plan: Chronic, continue home oxygen supplementation of 2L NC (4) Atrial fibrillation: Code(s): I48.91 - Unspecified atrial fibrillation Status: Acute Assessment and Plan: Chronic, continue home medications - xarelto 20 mg daily - not on an antiarrhythmic or beta geoff, rate remains well controlled with paced (5) Congestive heart failure: Code(s): I50.9 - Heart failure, unspecified Status: Acute Assessment and Plan: Chronic, does not appear in acute exacerbation Continue home medications lasix 20 mg BID irbesartan 300 mg daily spironolactone 25 mg daily Time Spent With Patient Time with patient: 25 - 35 minutes Subjective Date/time seen: 03/31/25 11:30 Interval history: 74 year old female with PMH of chronic respiratory failure on supplemental O2 (2L NC), CVA,atrial fibrillation, complete heart block s/p pacemaker placement, CHF, bipolar disorder, anxiety, GERD, hyperlipidemia, hypertension, chronic hyponatremia, asthma, epilepsy not currently treated with antiepileptic medications and previous left BKA presents to the hospital for low blood pressures and fainting. Patient is pleasant lying comfortably in bed. Patients blood pressure again elevated into the 180s overnight and this morning despite the antihypertensives. Increased hydralazine from 10 mg to 25 mg q8H. Patient states she is nervous to return given the antihypertensive medication change. Will continue to monitor her blood pressures at this time. Patient's other complaints denying chest pain, palpitations, shortness a breath, nausea/vomiting, abdominal pain. Review of Systems Review of Systems: All systems reviewed & are unremarkable except as noted in HPI and below Exam Narrative: AF HR 79 RR 16 Spo2 100 2L NC baseline BP 131/58 General: female in no acute respiratory distress who is nontoxic appearing, sitting up in bed. HEENT: Normocephalic. Atraumatic. Extraocular movement intact. Sclera clear and anicteric. No facial asymmetry. Chest: Lungs are clear to auscultation bilaterally. CV: Heart was regular rate and rhythm. Abd: Abdomen was soft. Nontender. Nondistended. Positive bowel sounds. Ext: No clubbing, cyanosis, or edema. Left AKA. Neuro: Patient is alert and oriented x4. Speech is clear. Objective Data Vital Signs Vital Signs: Vital Signs - 24 hr 03/30/25 12:00 03/30/25 13:13 03/30/25 14:06 Temperature 97.8 F 98.2 F Pulse Rate 109 H 102 H 96 Respiratory Rate 20 20 Blood Pressure 143/68 H 158/56 H Pulse Oximetry 100 100 Oxygen Delivery Oxygen Flow Rate 03/30/25 14:57 03/30/25 20:34 03/30/25 20:38 Temperature 97.6 F Pulse Rate 94 97 Respiratory Rate 14 Blood Pressure 163/60 H Pulse Oximetry 100 98 Oxygen Delivery Nasal Cannula Oxygen Flow Rate 2 03/31/25 00:00 03/31/25 04:00 03/31/25 05:00 Temperature 97.7 F Pulse Rate 86 79 83 Respiratory Rate Blood Pressure 188/87 H Pulse Oximetry 98 Oxygen Delivery Oxygen Flow Rate 03/31/25 06:00 03/31/25 08:00 03/31/25 10:03 Temperature 97.9 F Pulse Rate 88 79 Respiratory Rate 16 Blood Pressure 157/68 H 151/61 H Pulse Oximetry 100 Oxygen Delivery Oxygen Flow Rate 03/31/25 10:44 Temperature Pulse Rate Respiratory Rate Blood Pressure 131/58 L Pulse Oximetry Oxygen Delivery Oxygen Flow Rate Intake/Output Intake/Output: Intake & Output 03/28/25 03/29/25 03/30/25 03/31/25 23:59 23:59 23:59 23:59 Intake Total 1280 1190 2210 490 Output Total 3000 900 1850 1650 Balance -1720 290 360 -1160 Meds/Results Medications: Active Medications Generic Name Dose Route Start Last Admin Trade Name Freq PRN Reason Stop Dose Admin Albuterol/Ipratropium 3 ml 03/28/25 09:13 Ipratropium 0.5 Mg/Albuterol Sulfate 2.5 Mg Ampul.Neb 3 Ml INHALATION Q6HRT PRN Wheezing Amlodipine Besylate 10 mg 03/28/25 09:15 03/31/25 09:11 Amlodipine Besylate 10 Mg Tablet PO 10 mg DAILY KELIN Administration Artificial Tears 2 drop 03/28/25 09:45 03/31/25 09:10 Artificial Tears Ophth Soln 15 Ml Bottle EACH EYE 2 drop Q12HR KELIN Administration Atorvastatin Calcium 10 mg 03/28/25 21:00 03/30/25 21:14 Atorvastatin 10 Mg Tablet PO 10 mg HS KELIN Administration Bisacodyl 10 mg 03/28/25 09:13 Bisacodyl 5 Mg Tablet Ec PO HS PRN Constipation Buspirone HCl 10 mg 03/28/25 09:00 03/31/25 09:11 Buspirone Hcl 10 Mg Tablet PO 10 mg TID KELIN Administration Clonazepam 0.5 mg 03/28/25 09:15 03/31/25 09:10 Clonazepam (*Crx) 0.5 Mg Tablet PO 0.5 mg Q12HR KELIN Administration Docusate Sodium 200 mg 03/28/25 09:50 03/31/25 09:11 Docusate Sodium 100 Mg Capsule PO 200 mg BID KELIN Administration Famciclovir 250 mg 03/28/25 09:15 03/31/25 09:12 Famciclovir 250 Mg Tablet PO 250 mg Q12HR KELIN Administration Famotidine 10 mg 03/28/25 09:40 03/31/25 09:13 Famotidine 10 Mg Tablet PO 10 mg DAILY KELIN Administration Fluticasone Propionate 1 spray 03/28/25 09:40 03/31/25 09:10 Fluticasone Propionate 0.05% Na Spr 16 Gm Btl (*Bkc) NASAL 1 spray DAILY KEILN Administration Furosemide 20 mg 03/28/25 09:40 03/31/25 09:11 Furosemide 20 Mg Tablet PO 20 mg BID KELIN Administration Hydralazine HCl 25 mg 03/31/25 10:00 03/31/25 09:12 Hydralazine Hcl 25 Mg Tablet PO 25 mg Q8HR KELIN Administration Irbesartan 300 mg 03/30/25 09:00 03/31/25 09:11 Irbesartan 150 Mg Tablet PO 300 mg QAM KELIN Administration Isosorbide Mononitrate 30 mg 03/28/25 09:40 03/31/25 09:11 Isosorbide Mononitrate 30 Mg Tab.Er.24h PO 30 mg DAILY KELIN Administration Lidocaine 2 patch 03/28/25 21:00 03/30/25 21:43 Lidocaine 5% Patch TOPICAL 2 patch HS KELIN Administration Memantine 5 mg 03/28/25 09:45 03/31/25 09:11 Memantine 5 Mg Tablet PO 5 mg Q12HR KELIN Administration Ondansetron HCl 4 mg 03/28/25 09:45 03/31/25 09:12 Ondansetron Hcl Odt 4 Mg Tablet PO 4 mg TID KELIN Administration Oxycodone/Acetaminophen 1 tablet 03/28/25 09:13 03/31/25 04:58 Oxycodone/Acetaminophen (*Crx) 5-325 Mg Tablet PO 1 tablet Q8H PRN Administration Pain Rated 7-10 Polyethylene Glycol 17 gm 03/28/25 09:45 03/31/25 09:12 Polyethylene Glycol 3350 17 Gm Powd.Pack PO 17 gm DAILY KELIN Administration Pregabalin 150 mg 03/28/25 09:45 03/31/25 09:11 Pregabalin (*Crx) 75 Mg Capsule PO 150 mg BID KELIN Administration Primidone 200 mg 03/30/25 21:00 03/31/25 09:11 Primidone 50 Mg Tablet BY MOUTH 200 mg Q12HR KELIN Administration Rivaroxaban 20 mg 03/28/25 17:00 03/30/25 16:26 Rivaroxaban 20 Mg Tablet PO 20 mg DAILY@1700 KELIN Administration Senna/Docusate Sodium 2 tab 03/28/25 09:50 03/31/25 09:12 Senna/Docusate Sodium Tablet PO 2 tab BID KELIN Administration Sodium Chloride 1 gm 03/28/25 09:45 03/31/25 09:11 Sodium Chloride 1 Gm Tablet PO 1 gm BID KELIN Administration Spironolactone 25 mg 03/28/25 09:45 03/31/25 09:11 Spironolactone 25 Mg Tablet PO 25 mg DAILY KELIN Administration Venlafaxine HCl 37.5 mg 03/28/25 09:45 03/31/25 09:12 Venlafaxine Hcl Xr 37.5 Mg Cap PO 37.5 mg DAILY KELIN Administration Radiology Results: ITS Impressions Chest X-Ray 03/27/25 14:47 IMPRESSION: 1: NO ACUTE CARDIOPULMONARY DISEASE. Head CT 03/28/25 18:32 IMPRESSION: 1. No acute intracranial abnormality. Carotid Doppler Study 03/28/25 19:03 IMPRESSION: 1. Less than 50% stenosis in the right internal carotid artery by sonographic criteria. 2. Less than 50% stenosis in the left internal carotid artery by sonographic criteria. Arterial/Peripheral Duplex 03/29/25 17:59 IMPRESSION: 1. No Doppler evidence of renal artery stenosis. Limited study. Labs Labs: Laboratory Results - last 24 hr 03/31/25 05:25 WBC 7.9 RBC 3.52 L Hgb 9.4 L Hct 31.3 L MCV 88.9 MCH 26.7 MCHC 30.0 L RDW 15.6 H Plt Count 279 MPV 11.4 H Sodium 129 L Potassium 4.7 Chloride 92 L Carbon Dioxide 32 H Anion Gap 5 BUN 14 Creatinine 0.67 L Estim Creat Clear Calc 67 Estimated GFR > 60 Glucose 97 Calcium 8.4 Total Bilirubin < 0.1 L AST 23 ALT 17 Alkaline Phosphatase 92 Total Protein 6.3 Albumin 3.6 Quality VTE Prophylaxis VTE prophylaxis: pharmacologic ordered
[2025-03-31] MEDS: RIVAROXABAN 20 MG TABLET PO (17:21)
[2025-03-31] MEDS: ATORVASTATIN 10 MG TABLET PO (20:55)
[2025-03-31] MEDS: LIDOCAINE 5% PATCH 2 PATCH TOPICAL (20:56)
[2025-04-01] VITALS: PULSE 92
[2025-04-01 04:00] VITALS: BP 154/60
[2025-04-01] MEDS: oxyCODONE/ACETAMINOPHEN (*CRX) 5-325 MG TABLET 1 TABLET PO ×2 (05:13→13:13)
[2025-04-01 05:41] LABS: Hematocrit 31.2 % (37.0-47.0); Hemoglobin 9.3 g/dL (12.0-15.0); Mean Corpuscular HGB Conc 29.8 g/dl (32-36); Mean Corpuscular Hemoglobin 26.9 pg (26-34); Mean Corpuscular Volume 90.2 fl (80-100); Platelet Count Result 295 k/mm3 (150-375); Red Blood Count 3.46 M/mm3 (4.2-5.4); White Blood Count 7.6 K/mm3 (4.5-10.0)
[2025-04-01 05:54] LABS: Alanine Aminotransferase 16 U/L (6-35); Albumin Level 3.5 g/dL (3.5-5.1); Alkaline Phosphatase 87 U/L (38-126); Anion Gap 3 mmol/L (4-12); Aspartate Amino Transferase 25 U/L (14-36); Bilirubin,Total < 0.1 mg/dL (0.2-1.3); Blood Urea Nitrogen 15 mg/dL (7-17); Calcium 8.3 mg/dL (8.4-10.2); Carbon Dioxide 31 mmol/L (22-30); Chloride 92 mmol/L (98-107); Estimated CRCL calculation 70 ml/min; Estimated Glomerular Filt Rate > 60; Glucose 101 mg/dL (65-110); Potassium 5.0 mmol/L (3.4-5.0); Sodium 126 mmol/L (137-145); Total Protein 6.1 g/dL (6.3-8.2)
[2025-04-01 06:00] VITALS: BP 154/59; PULSE 98; RESP 20; TEMP 36.8; O2SAT 100
[2025-04-01] MEDS: FLUTICASONE PROPIONATE 0.05% NA SPR 16 GM BTL (*BKC) 1 SPRAY NASAL (08:45)
[2025-04-01] MEDS: ARTIFICIAL TEARS OPHTH SOLN 15 ML BOTTLE 2 DROP EACH EYE (08:45)
[2025-04-01] MEDS: FAMCICLOVIR 250 MG TABLET PO (08:46)
[2025-04-01] MEDS: DOCUSATE SODIUM 100 MG CAPSULE 200 MG PO (08:46)
[2025-04-01] MEDS: FUROSEMIDE 20 MG TABLET PO (08:46)
[2025-04-01] MEDS: SPIRONOLACTONE 25 MG TABLET PO (08:46)
[2025-04-01] MEDS: FAMOTIDINE 10 MG TABLET PO (08:46)
[2025-04-01] MEDS: PREGABALIN (*CRX) 75 MG CAPSULE 150 MG PO (08:46)
[2025-04-01] MEDS: IRBESARTAN 150 MG TABLET 300 MG PO (08:47)
[2025-04-01] MEDS: ONDANSETRON HCL ODT 4 MG TABLET PO ×2 (08:47→13:13)
[2025-04-01] MEDS: VENLAFAXINE HCL XR 37.5 MG CAP PO (08:47)
[2025-04-01] MEDS: ISOSORBIDE MONONITRATE 30 MG TAB.ER.24H PO (08:47)
[2025-04-01] MEDS: MEMANTINE 5 MG TABLET PO (08:47)
[2025-04-01] MEDS: SODIUM CHLORIDE 1 GM TABLET PO (08:47)
[2025-04-01] MEDS: clonazePAM (*CRX) 0.5 MG TABLET PO (08:47)
[2025-04-01] MEDS: PRIMIDONE 50 MG TABLET 200 MG BY MOUTH (08:47)
[2025-04-01] MEDS: SENNA/DOCUSATE SODIUM TABLET 2 TAB PO (08:47)
[2025-04-01 10:48] VITALS: BP 131/57
[2025-04-01 11:10] LABS: Sodium 128 mmol/L (137-145)
[2025-04-01 12:00] VITALS: PULSE 99
--- NOTE | 2025-04-01 13:47 | P.DS_ITS ---
DS: Admitting Diagnosis Discharge Date 04/01/2025 Admitting Diagnosis syncope htn chronic respiratory failure with hypoxia afib chf DS: Discharge Diagnosis Discharge Diagnosis (1) Syncope: Code(s): R55 - Syncope and collapse Status: Acute (2) HTN (hypertension): Qualifiers: Hypertension type: essential hypertension Qualified Code(s): I10 - Essential (primary) hypertension Code(s): I10 - Essential (primary) hypertension Status: Chronic (3) Chronic respiratory failure with hypoxia, on home oxygen therapy: Code(s): J96.11 - Chronic respiratory failure with hypoxia; Z99.81 - Dependence on supplemental oxygen Status: Acute (4) Atrial fibrillation: Code(s): I48.91 - Unspecified atrial fibrillation Status: Acute (5) Congestive heart failure: Code(s): I50.9 - Heart failure, unspecified Status: Acute DS: Summary Hospital Course Reason for hospitalization: syncope htn chronic respiratory failure with hypoxia afib chf Hospital Course: 74 year old female with PMH of chronic respiratory failure on supplemental O2 (2L NC), CVA,atrial fibrillation, complete heart block s/p pacemaker placement, CHF, bipolar disorder, anxiety, GERD, hyperlipidemia, hypertension, chronic hyponatremia, asthma, epilepsy not currently treated with antiepileptic medications and previous left BKA presents to the hospital for low blood pressures and fainting. Per chart review patient was noted to have blood pressures in the 60s systolic while doing physical therapy at the facility. Blood pressures responded well to fluids and she again became hypertensive. UA unremarkable, viral panel negative, chest xr unremarkable. No signs of active infection. UDS positive for barbiturates, possible cross reactivity with Effexor. Recent pacemaker ([employer] Micra AV leadless pacemaker) placed on 02/[address] Dominguez, interrogated pacemaker and no cardiac events noted.CT head unremarkable. Echo showed LVEF 65-70% with grade I diastolic dysfunction. Carotid doppler less than 50% stenosis of bilateral ICA. Etiology of syncope likely hypotension possibly related to polypharmacy as patient is on multiple antihypertensives. Patient stated she was recently started on clonidine patch which was supposed to be stopped after recent hospitalization however she continued to receive this at the facility. Patient also noted that she was recently increased to hydralazine 50 mg tid prior to admission, however this is not noted on home med list. Throughout admission patient remained hypertensive. Home antihypertensives including lasix, irbesartan, imdur, and amlodipine were resumed. Patient dose of hydralazine changed to 25 mg q8H. Patient clonidine patch remains discontinued. Patient blood pressure remained stable on this regimen and she denied any dizziness/lightheadedness. Patient has no complaints at time of discharge denying chest pain, palpitations, shortness of breath, nausea/vomiting, abdominal pain. [facility] Per care coordination patient to be made SNF when returning to facility. Patient to follow up with PCP in 1 week. Status at Discharge Functional status at discharge: wheelchair bound Time Spent with Patient Time attestation: Total time spent providing and/or coordinating discharge services: Time spent: Less than 30 minutes Exam Narrative: AF HR 99 RR 20 Spo2 100 2L NC baseline BP 131/57 General: female in no acute respiratory distress who is nontoxic appearing, sitting up in bed. HEENT: Normocephalic. Atraumatic. Extraocular movement intact. Sclera clear and anicteric. No facial asymmetry. Chest: Lungs are clear to auscultation bilaterally. CV: Heart was regular rate and rhythm. Abd: Abdomen was soft. Nontender. Nondistended. Positive bowel sounds. Ext: No clubbing, cyanosis, or edema. Left AKA. Neuro: Patient is alert and oriented x4. Speech is clear. DS: Data Data Completed and Pending Completed studies during hospitalization: aterial/peripheral duplex carotid doppler head ct chest xr Labs on day of discharge: Labs from last 24 hours 04/01/25 04/01/25 10:55 05:04 WBC 7.6 RBC 3.46 L Hgb 9.3 L Hct 31.2 L MCV 90.2 MCH 26.9 MCHC 29.8 L RDW 15.7 H Plt Count 295 MPV 11.0 H Sodium 128 L 126 L Potassium 5.0 Chloride 92 L Carbon Dioxide 31 H Anion Gap 3 L BUN 15 Creatinine 0.64 L Estim Creat Clear Calc 70 Estimated GFR > 60 Glucose 101 Calcium 8.3 L Total Bilirubin < 0.1 L AST 25 ALT 16 Alkaline Phosphatase 87 Total Protein 6.1 L Albumin 3.5 Preliminary micro results at discharge 03/27/25 13:02 Blood Culture - Preliminary Blood 03/27/25 13:18 Blood Culture - Preliminary Blood Discharge Plan Discharge Attending physician on discharge: Bhavik Minaya Consulting providers: Hiral Guzman Discharging Clinician: Hiral Guzman Anticipated Discharge Date/Time: 04/01/25 12:47 Patient Disposition: NH Usp/Asst Living Activity: as tolerated Diet: as tolerated and heart healthy Discharge Instructions: Discharge disposition: Patient admitted to the hospital for syncope with noted low blood pressures Etiology: hypotension possibly related to polypharmacy as patient is on multiple antihypertensives Imaging unremarkable Pacemaker interrogated and no events noted During admission patient again developed high blood pressures once again Take medications as prescribed Continue Lasix, irbesartan, Imdur, amlodipine as previously prescribed Increased hydralazine to 25 mg q8H Stop the clonidine patch Prior to giving blood pressure medications check blood pressure Monitor blood pressures closely Take caution while standing, rising, or moving Change positions slowly taking a break between each position change If you standing feel dizzy sit back down and take a break Patient has chronic low sodium levels Currently at baseline Continue salt tabs and fluid restriction Repeat sodium level in 3-5 days, order to be made by PCP Encouraged to continue with yearly vaccinations Return to the emergency department if he developed sudden shortness of breath, chest pain, nausea, vomiting, upset stomach or intractable diarrhea Return to the emergency department if you develop fever greater than 100.5 Follow-up with the primary care physician within 1-[address] [facility] for your healthcare needs Patient Instructions: Hydralazine (By mouth), Rivaroxaban (By mouth), Hyponatremia (DC), Hypotension (DC), Safe Use of Anticoagulants (GEN), Blood Thinners (GEN) Patient Language: Telugu Stand Alone Forms: General Discharge Information Follow-up/Referrals: UNKNOWN,DOCTOR [Primary Care Provider] - 1 Week Discharge Medications: Continued docusate sodium 100 mg Tablet 200 mg PO BID isosorbide mononitrate 30 mg tablet extended release 24 hr 30 mg PO DAILY lidocaine [Lidoderm] 5 % adhesive patch,medicated 2 patch topical HS Patient Comments: left shoulder Rx Instructions: leave on most painful area for up to 12 hrs magnesium hydroxide [Gentle Laxative (mag hydrox)] 400 mg/5 mL suspension 30 ml PO DAILY PRN (Reason: constipation) Xarelto 20 mg Tablet 20 mg PO DAILY@1700 Qty: 60 0RF oxycodone-acetaminophen 5-325 mg Tablet 1 tablet PO Q8H PRN (Reason: Pain Rated 7-10) Qty: 10 0RF irbesartan 150 mg Tablet 300 mg PO QAM Qty: 30 0RF primidone 50 mg tablet See Rx Instructions .ROUTE .COMPLEX Rx Instructions: 200 MG PO BID; spironolactone 25 mg tablet 25 mg PO DAILY buspirone 10 mg tablet 10 mg PO TID clonazepam 0.5 mg tablet 0.5 mg PO Q12H magnesium citrate Solution 300 ml PO DAILY PRN (Reason: constipation) famciclovir 250 mg tablet 250 mg PO Q12H atorvastatin [Lipitor] 10 mg tablet 10 mg PO HS sennosides-docusate sodium [Senna Plus] 8.6-50 mg tablet 2 tab-cap PO BID tizanidine 2 mg tablet 2 mg PO Q12H famotidine [Heartburn Relief (famotidine)] 10 mg Tablet 10 mg PO DAILY ipratropium-albuterol 0.5 mg-3 mg(2.5 mg base)/3 mL Solution For Nebulization 3 ml inhalation Q6HRT PRN (Reason: Wheezing) Qty: 30 0RF fluticasone propionate 50 mcg/actuation Stephenson,Suspension 1 spray INTRANASAL DAILY ondansetron HCl 4 mg tablet 4 mg PO TID amlodipine 10 mg tablet 10 mg PO DAILY bisacodyl [Dulcolax (bisacodyl)] 5 mg Tablet,Delayed Release (Dr/Ec) 10 mg PO HS PRN (Reason: Constipation) memantine 5 mg tablet 5 mg PO BID guaifenesin [Mucinex] 1,200 mg Tablet Extended Release 12hr 1,200 mg PO Q12H pregabalin [Lyrica] 150 mg Capsule 150 mg PO BID Qty: 14 0RF polyethylene glycol 3350 17 gram/dose powder 17 g PO DAILY polyvinyl alcohol [Artificial Tears (polyvin alc)] 1.4 % drops 2 drp EACH EYE BID sodium chloride 1,000 mg tablet,soluble 1,000 mg PO BID furosemide 20 mg Tablet 20 mg PO BID 30 Days Qty: 60 0RF venlafaxine [Effexor XR] 37.5 mg capsule,extended release 24hr 37.5 mg PO DAILY Changed hydralazine 10 mg tablet 25 mg PO Q8H Qty: 30 0RF Discontinued clonidine [[id number]-9] 0.1 mg/24 hr patch weekly 1 patch transdermal WEEKLY Patient Comments: change every Wednesday Date of admission: 03/27/25 17:07 Primary Care Provider: UNKNOWN,DOCTOR Admitting Provider: Jose Groves Attending physician on admission: Jose Groves Condition: Stable Hospitalist MIPS Heart Failure (Exclusion) Patient has history of Heart Transplant or Left Ventricular Assistive Device?: No IF YES, STOP HERE Heart Failure (Qualifier) Patient has current or prior documentation of LVEF less than or equal to 40%, or mod/servere depressed LVSF?: No IF NO, STOP HERE
== END 2025-04-01 15:15 | DRG 312 ==
LOC: ANHED 17:10 → ANH3MEDSUR 18:00
PROVIDERS: Family Medicine; Internal Medicine; Admitting Provider Internal Medicine; Emergency Provider Emergency Medicine; Visit Provider Student in an Organized Health Care Education/Training Program
DX: I95.2 Hypotension due to drugs (principal); J96.11 Chronic respiratory failure with hypoxia; E87.1 Hypo-osmolality and hyponatremia; I48.20 Chronic atrial fibrillation, unspecified; I50.32 Chronic diastolic (congestive) heart failure; T46.5X5A Adverse effect of other antihypertensive drugs, initial encounter; Z79.899 Other long term (current) drug therapy; R55 Syncope and collapse; I11.0 Hypertensive heart disease with heart failure; I50.9 Heart failure, unspecified; E78.5 Hyperlipidemia, unspecified; F31.9 Bipolar disorder, unspecified; F41.9 Anxiety disorder, unspecified; G47.33 Obstructive sleep apnea (adult) (pediatric); K21.9 Gastro-esophageal reflux disease without esophagitis; D64.9 Anemia, unspecified; G40.909 Epilepsy, unspecified, not intractable, without status epilepticus; F03.90 Unspecified dementia, unspecified severity, without behavioral disturbance, psychotic disturbance, mood disturbance, and anxiety; J45.909 Unspecified asthma, uncomplicated; Z99.81 Dependence on supplemental oxygen; Z95.0 Presence of cardiac pacemaker; Z86.73 Personal history of transient ischemic attack (TIA), and cerebral infarction without residual deficits; Z79.01 Long term (current) use of anticoagulants; Z89.612 Acquired absence of left leg above knee; Z96.611 Presence of right artificial shoulder joint; Z90.49 Acquired absence of other specified parts of digestive tract; Z96.652 Presence of left artificial knee joint; Z90.710 Acquired absence of both cervix and uterus; Z91.81 History of falling
CPT/HCPCS: 36415; 70450; 71045; 80048; 80053; 80307; 81001; 83605; 83690; 83735; 84100; 84295; 85025; 85027; 85055; 85610; 85730; 87040; 87637; 93005; 93880; 93976; 96360; 96361; 99285; A9270; C8929; J0360; J7120; Q9957

== ENCOUNTER 2025-04-25 09:11 | Emergency (ER) | payer MEDICARE, MEDICAID, SELFPAY ==
--- OUTSIDE RECORDS SUMMARY | 2025-04-17 19:00 | XMS_ITS | Continuity of Care Document ---
Author Organization [facility] Address [address] [place] [address] Phone Care Team Providers Care Camera Supervisor Name Role Phone Hernando Velasquez MD Unavailable [...] tablet twice daily as needed - Active [place] Nasal 0.65 % spray aerosol 2 sprays [...] F IRST INJ TDAP INTRAMUSCULAR USE OFFICE BUDTS-DCB-IOWWGOFL SYST BP >= 140 MM HG6 IT [...] Preservative And A ntibiotic Free IM OFFICE AVNKD-DUE-HPZCPDCS SYST BP >= 140 MM HG6 IT DIAST BP < 80 MM HG ROUTINE VENIPUNCTURE IL CBC, INC PLATELETS AND DIFFERENTIAL COMPREHEN METABOLIC PANEL CMP 3 LIPID PANEL Pt inelig neg scrn depres FALL RISK ASSESSMENT DOC'D PRES/ABSN URINE INCON ASSESS PREVENTATIVE-EST: 65 & OVER SYST BP >= 140 MM HG6 IT DIAST BP < 80 MM HG ROUTINE VENIPUNCTURE IL OFFICE HZGLU-KEW-ZMUXSPSB SYST BP >= 140 MM HG6 IT DIAST BP 80-89 MM HG BASIC METABOLIC PANEL(BMP) ROUTINE VENIPUNCTURE BASIC METABOLIC PANEL(BMP) ROUTINE VENIPUNCTURE BASIC METABOLIC PANEL(BMP) ROUTINE VENIPUNCTURE IMMUN ADMIN (INC PERCUTANEOUS) SINGLE, F IRST INJ Flu Vac, quad (RIV4), Preservative And A ntibiotic Free IM OFFICE JRAER-OEL-YOJIVJBZ BODY MASS INDEX DOCD SYST BP >= 140 MM HG6 IT DIAST BP >= 90 MM HG BASIC METABOLIC PANEL(BMP) ROUTINE VENIPUNCTURE FORM CHARGE SYST BP >= 140 MM HG6 IT DIAST BP 80-89 MM HG OFFICE EIWUR-UPD-XMAPEGJT BODY MASS INDEX DOCD SYST BP >= 140 MM HG6 IT DIAST BP 80-89 MM HG PREVENTATIVE-EST: 65 & OVER BODY MASS INDEX DOCD SYST BP >= 140 MM HG6 IT DIAST BP 80-89 MM HG CBC, INC PLATELETS AND DIFFERENTIAL COMPREHEN METABOLIC PANEL CMP HEMOGLOBIN A1C HGA1C, GLYCO LIPID PANEL MICROALBUMIN, QN (URINE) CREATININE, (U-R) ROUTINE VENIPUNCTURE OFFICE LQRZO-URL-FIXSWVTA CBC, INC PLATELETS AND DIFFERENTIAL COMPREHEN METABOLIC PANEL CMP 1 HEMOGLOBIN A1C HGA1C, GLYCO ROUTINE VENIPUNCTURE OFFICE BHHQK-REH-WXVSZWID DSCHRG MED/CURRENT MED MERGE OFFICE HGUGN-NCZ-XTOVXWUA BASIC METABOLIC PANEL(BMP) ROUTINE VENIPUNCTURE OFFICE VHTLN-ZAU-YAFBNVXE BASIC METABOLIC PANEL(BMP) CREATININE, (U-R) URINALYSIS, DIPSTICK (UA) - Office Lab O ROUTINE VENIPUNCTURE BASIC METABOLIC PANEL(BMP) ROUTINE VENIPUNCTURE Admin influenza virus vac Flu Vac, quad (RIV4), Preservative And A ntibiotic Free IM BASIC METABOLIC PANEL(BMP) ROUTINE VENIPUNCTURE OFFICE WZEFI-MDE-LAXOVGIJ BASIC METABOLIC PANEL(BMP) DRUG TEST (ANY NUMBER OF DRUG CLASSES) A ROUTINE VENIPUNCTURE Advance Directives Directive Yes / No Effective Date File Name No Information Encounters Encounter Description Practice Location Reason(s) For Visit Diagnoses Date Provider Providers Copied on Encounter [facility], [address], [place], [place], [address] , [place] tel: [phone] [facility] No Information 5 English Villagomez. [address] [place], [address], [place]. tel:[phone] Referring Provider: Hernando Velasquez, [address] [place], [address] . tel:[phone] [facility], [address], [place], [place], [address] , [place] tel: [phone] [facility] [employer] No Information 5 [place] Hernando. [address] [place], [address], [place]. tel:[phone] [facility] [place], [address], [place], [place], [address] , [place] tel: [phone] [facility] [employer] No Information 4 Dejesus Kay. [address] [place], [place], [address], [place]. tel:[phone] [facility], [address], [place], [place], [address] , [place] tel: [phone] [facility] [employer] No Information 4 Dejesus Kay. [address] [place], [address], [place]. tel:[phone] [facility], [address], [place], [place], [address] , [place] tel: [phone] [facility] [employer] No Information 4 [place] Hernando. [address] [place], [address], [place]. tel:[phone] [facility], [address], [place], [place], [address] , [place] tel: [phone] [facility] [employer] No Information 4 [place] Hernando. [address] [place], [address], [place]. tel:[phone] [facility], [address], [place], [place], [address] , [place] tel:[phone] [facility] [employer] No Information 4 [place] Hernando. [address] [place], [place], [address], [place]. tel:[phone] [facility], [address], [place], [place], [address] , tel: [phone] [facility] [employer] No Information 4 [place] Hernando. [address] [place], [place], [address], [place]. tel:[phone] [facility], [address], [place], [place], [address] , [place] tel:[phone] [facility] [employer] No Information 4 [place] Hernando. [address] [place], [address], [place]. tel:[phone] [facility], [address], [place], [place], [address] , [place] tel:[phone] [facility] [employer] No Information 4 Dejesus Kay. [address] [place], [address], [place]. tel:[phone] [facility], [address], [place], [place], [address] , [place] tel: [phone] [facility] [employer] No Information 4 [place] Hernando. [address] [place], [place], [address], [place]. tel:[phone] [facility], [address], [place], [place], [address] , [place] tel:[phone] [facility] [employer] No Information 4 [place] Hernando. [address] [place], [address], [place]. tel:[phone] [facility] [place], [address], [place], [place], [address] , [place] tel:[phone] [facility] [employer] No Information 4 [place] Hernando. [address] [place], [address], [place]. tel:[phone] [facility], [address], [place], [place], [address] , [place] tel:[phone] [facility] [employer] No Information 4 Dixonnasima Dixon. [address] [place], [address], [place]. tel:[phone] [facility], [address], [place], [place], [address] , [place] tel: [phone] [facility] No Information 4 English Villagomez. [address] [place], [place], [address], [place]. tel:[phone] [facility], [address], [place], [place], [address] , [place] tel: [phone] [facility] No Information 4 Ben Price. [address] [facility], [facility] [address], [place], [place], [address], [place]. tel:[phone] Referring Provider: Hernando Velasquez, [address] [place], [address] . tel:[phone] OFFICE ILYYW-TRR-CN PANDED [facility], [address], [place], [place], [address] , [place] tel: [phone] [facility] (chief complaint) Hyponatremia 4 English Villagomez. [address] [place], [place], [address], [place]. tel:[phone] Referring Provider: Hernando Velasquez, [address] [place], [address] . tel:[phone] [facility], [address], [place], [place], [address] , [place] tel: [phone] [facility] No Information 4 English Villagomez. [address] [place], [address], [place]. tel:[phone] [facility] [place], [address], [place], [place], [address] , [place] tel: [phone] [facility] [place] [employer] No Information 4 English Villagomez. [address] [place], [place], [address], [place]. tel:[phone] [facility], [address], [place], [place], [address] , [place] tel: [phone] [facility] Encounter for general adult medical examination without abnormal findingsEssnasima clancy (primary) hypertensionH yperlipidemia , unspecified Oct- 4 Ben Martinin. [address], [address], [place]. tel:[phone] Referring Provider: Hernando Velasquez, [place], [address] . tel:[phone] PREVENTATIVE -EST: 65 & OVER [facility] [place], [address], [place], [place], [address] , [place] tel: [phone] [facility] PX (chief complaint) Encounter for general adult medical examination without abnormal findingsEssen tial hypertensionC OPD with asthmaChronic GERDGAD (generalized anxiety disorder)Cere bral atrophyHistor y of above-knee amputation of left lower extremityEnco unter for screening for malignant neoplasm of colon 4 English Villagomez. [address] [place], [place], [address], [place]. tel:[phone] Referring Provider: Hernando Velasquez, [place], [address] . tel:[phone] [facility], [address], [place], [place], [address] , [place] tel: [phone] [facility] No Information 4 English Villagomez. [address] [place], [place], [address], [place]. [phone] [facility], [address], [place], [place], [address] , [place] tel: [phone] [facility] No Information 3 Ben Martinin. [address] [address], [place], [place], [address], [place]. tel:[phone] Referring Provider: Hernando Velasquez, [place], [address] . tel:[phone] OFFICE SFFGF-BIM-PV TAILED [facility], [address], [place], [place], [address] , [place] tel: [phone] [facility] chronic conditions (chief complaint) COPD with asthmaGAD (generalized anxiety disorder)[facility] ntial hypertensionC hronic GERD 3 English Villagomez. [address] [place], [address], [place]. [phone] Referring Provider: Hernando Velasquez, [place], [address] . tel:[phone] [facility], [address], [place], [place], [address] , [place] tel: [phone] [facility] Vitamin D deficiency 3 English Villagomez. [address] [place], [place], [address], [place]. tel:[phone] [facility], [address], [place], [place], [address] , tel: [phone] [facility] No Information 3 Ben Price. [address] [place] [address], [address], [place]. tel:[phone] Referring Provider: [place], [address] . tel:[phone] PREVENTATIVE -EST: 65 & OVER [facility], [address], [place], [place], [address] , tel: [phone] [facility] px (chief complaint) History of above-knee amputation of left lower extremityChro kamryn hypoxemic respiratory failureEssent ial hypertensionC erebral atrophyChroni c GERDCOPD with asthmaEncount er for general adult medical examination without abnormal findingsEncou nter for screening mammogram for malignant neoplasm of breast 3 English Villagomez. [address] [place], [address], [place]. tel:[phone] Referring Provider: [place], [address] . tel:[phone] [facility], [address], [place], [place], [address] , [place] tel: [phone] [facility] [employer] Herpesviral infection of urogenital system Sep- 3 English Villagomez. [address] [place], [address], [place]. tel:[phone] [facility], [address], [place], [place], [address] , [place] tel: [phone] [facility] [employer] No Information 3 English Villagomez. [address] [place], [place], [address], [place]. tel:[phone] [facility], [address], [place], [place], [address] , [place] tel: [phone] [facility] Follow-up exam 3 English Villagomez. [address] [place], [address], [place]. tel:[phone] OFFICE AWVLL-WAU-BS PANDED [facility], [address], [place], [place], [address] , [place] tel: [phone] [employer] Nocturnal leg cramps 2 [place] Hernando. [address] [place], [address], [place]. tel:[phone] Referring Provider: [place], [address] . tel:[phone] [facility], [address], [place], [place], [address] , [place] tel: [phone] [employer] Hyponatremia May- 2 English Villagomez. [address] [place], [place], [address], [place]. tel:[phone] Referring Provider: [place], [address] . tel:[phone] [facility], [address], [place], [place], [address] , [place] tel:[phone] [employer] Low sodium levels 2 English Villagomez. [address] [place], [address], [place]. tel:[phone] Referring Provider: [place], [address] . tel:[phone] [employer] [facility], [address], [place], [place], [address] , tel: [phone] [facility] Essential hypertension 2 [place] Hernando. [address] [place], [address], [place]. tel:[phone] Referring Provider: [place], [address] . tel:[phone] OFFICE MLEDR-WES-HJ [facility], [address], [place], [place], [address] , tel: [phone] [facility] Chronic Conditions (chief complaint) Body mass index [BMI] 36.0-36.9, adultEssentia l (primary) hypertensionM igraine, unspecified, not intractable, without status migrainosusMo rbid (severe) obesity due to excess caloriesAorti c atheroscleros is Mar- 2 [place] Hernando. [address] [place], [address], [place]. [phone] Referring Provider: [place], [address] . tel:[phone] [facility], [address], [place], [place], [address] , tel: [phone] [facility] Cough, persistent Mar- 2 English Villagomez. [address] [place], [address], [place]. tel:[phone] [facility], [address], [place], [place], [address] , tel: [phone] [facility] No Information 2 English Villagomez. [address] [place], [address], [place]. tel:[phone] [facility], [address], [place], [place], [address] , tel: [phone] [facility] No Information 2 English Villagomez. [address] [place], [address], [place]. tel:[phone] Referring Provider: [place], [address] . tel:[phone] OFFICE URQSJ-VAE-KR PANDED 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 [address] [place], [place], [address], [place]. tel:[phone] Referring Provider: [place], [address] . [phone] [facility], [address], [place], [place], [address] , tel: [phone] [facility] Encounter for screening for malignant neoplasm of colonEncounte r for screening for malignant neoplasm of colon Apr-0 2 English Villagomez. [address] [place], [place], [address], [place]. tel:[phone] PREVENTATIVE -EST: 65 & OVER [facility], [address], [place], [place], [address] , tel: [phone] [facility] PX (chief complaint) Annual physical examChronic hypoxemic respiratory failureEssent ial (primary) hypertensionH istory of above-knee amputation of left lower extremityChro kamryn GERDCerebral atrophyCOPD with asthmaLow back pain, unspecifiedBo dy mass index [BMI] 35.0-35.9, adultDecrease d pulseMixed hyperlipidemi aHyperglycemi a Sep- 2 English Villagomez. [address] [place], [address], [place]. tel:[phone] Referring Provider: [place], [address] . tel:[phone] OFFICE MGOUJ-YQP-GC TAILED [facility], [address], [place], [place], [address] , tel:[phone] [facility] f/u (chief complaint) Body mass index [BMI] 33.0-33.9, adultChronic hypoxemic respiratory failureHistor y of above-knee amputation of left lower extremityChro kamryn GERDCerebral atrophyEssent ial (primary) hypertensionS tage 3 chronic kidney disease, unspecified whether stage 3a or 3b CKDCOPD with asthmaHyperli pidemia, unspecified hyperlipidemi a typeAortic atheroscleros isOther chronic painGAD (generalized anxiety disorder)Hype rglycemiaPorp hyria 1 English Villagomez. [address] [place] [address], [address], [place]. tel:[phone] Referring Provider: [place], [address] . tel:[phone] [employer] [facility], [address], [place], [place], [address] , [phone] [employer] No Information 1 English Villagomez. [address] [place] [address], [address], [place]. tel:[phone] OFFICE JRGDF-QCB-YY TAILED [facility], [address], [place], [place], [address] , tel:[phone] [employer] telehealth (chief complaint)OV for form (chief complaint)Chart Writer kamryn Conditions (chief complaint) Unsteady gaitAortic atheroscleros isEssential (primary) hypertensionC erebral atrophyChroni c GERDNeuropath yChronic hypoxemic respiratory failure 0 Anjelica Villanueva. [address] [place], [place], [address], [place]. tel:[phone] Referring Provider: [place], [address] . tel:[phone] [facility], [address], [place], [place], [address] , [phone] [facility] Breast calcification s 0 English Villagomez. [address] [place] [address], [address], [place]. tel:[phone] [facility], [address], [place], [place], [address] , [place] tel: [phone] [facility] No Information 9 English Villagomez. [address] [place], [place], [address], [place]. tel:[phone] Referring Provider: Hernando Velasquez, [address] [place], [address] . tel:[phone] OFFICE AFMWH-FIJ-PP TAILED [facility], [address], [place], [place], [address] , tel: [phone] [facility] f/u (chief complaint) Syncope, unspecified syncope typeChronic low back pain, unspecified back pain laterality, unspecified whether sciatica presentOther chronic painAKI (acute kidney injury)Hyperk alemiaBody mass index (BMI) 40.0-44.9, adultMorbid (severe) obesity due to excess calories 9 Anjelica Villanueva. [address] [place], [place], [address], [place]. tel:[phone] Referring Provider: Hernando Velasquez, [address] [place], [address] . tel:[phone] OFFICE LACTP-FGW-JI [facility], [address], [place], [place], [address] , [place] tel: [phone] [facility] 1 week follow up (chief complaint) LUAN (acute kidney injury) 9 English Villagomez. [address] [place], [place], [address], [place]. tel:[phone] Referring Provider: Hernando Velasquez, [address] [place], [address] . tel:[phone] [facility], [address], [place], [place], [address] , tel: [phone] [facility] No Information 9 English Villagomez. [address] [place], [address], [place]. tel:[phone] [facility], [address], [place], [place], [address] , tel: [phone] [facility] Flu shot (chief complaint) Essential hypertensionE ncounter for immunization 9 English Villagomez. [address] [place], [place], [address], . tel:[phone] Referring Provider: [place], [address] . tel:[phone] [employer] [facility], [address], [place], [place], [address] , tel: [phone] [facility] Essential hypertension 9 [place] Hernando. [address] [place] [address], [address], [place]. tel:[phone] Referring Provider: [place], [address] . tel:[phone] OFFICE YOAVY-CDQ-VD [facility], [address], [place], [place], [address] , tel: [phone] [facility] 6 month (chief complaint) Essential (primary) hypertensionC hronic GERDCerebral atrophyBody mass index (BMI) 40.0-44.9, adultMorbid (severe) obesity due to excess caloriesNeuro pathyLong term current use of opiate analgesic 9 [place] Hernando. [address] [place] [address], [address], [place]. tel:[phone] Referring Provider: [place], [address] . tel:[phone] [facility], [address], [place], [place], [address] , tel: [phone] [facility] Breast calcification s 9 English Villagomez. [address] [place] [address], [address], [place]. tel:[phone] [facility], [address], [place], [place], [address] , tel: [phone] [facility] No Information 9 English Villagomez. [address] [place], [address], . tel:[phone] [facility], [address], [place], [place], [address] , tel: [phone] [facility] Hormone replacement therapySympto ms such as flushing, sleeplessness , headache, lack of concentration , associated with natural (age-related) menopause Oct- English Villagomez. [address] [place], [address], [place]. tel:[phone] [facility], [address], [place], [place], [address] , tel: [phone] [employer] sore under Left arm (chief complaint) Abscess of axilla English Villagomez. [address] [place], [address], [place]. tel:[phone] Referring Provider: [place], [address] . tel:[phone] [facility], [address], [place], [place], [address] , tel: [phone] [employer] sores under left arm (chief complaint) Abscess of axilla English Villagomez. [address] [place], [place], [address], [place]. tel:[phone] Referring Provider: [place], [address] . tel:[phone] [facility], [address], [place], [place], [address] , tel: [phone] [employer] SeizureMixed hyperlipidemi aEssential (primary) hypertensionC hronic GERDAortic atheroscleros isEsophageal strictureNeur opathy English Villagomez. [address] [place], [place], [address], [place]. tel:[phone] Referring Provider: [place], [address] . tel:[phone] [facility], [address], [place], [place], [address] , tel: [phone] [facility] No Information 8 English Villagomez. [address] [place], [place], [address], . tel:[phone] Referring Provider: Hernando Velasquez, [place], [address] . [phone] [facility], [address], [place], [place], [address] , tel: [phone] [employer] Body mass index (BMI) 33.0-33.9, adultEssentia l (primary) hypertensionC OPD with asthmaChronic GERDHyperlipi demia, unspecified hyperlipidemi a typeInsomnia disorder, with non-sleep disorder mental comorbidity, recurrent [place] Hernando. [address] [place], [address], . tel:[phone] Referring Provider: [place], [address] . tel:[phone] [facility], [address], [place], [place], [address] , tel: [phone] Aaron Abscess of neck 8 [place] Hernando. [address] [place], [address], [place]. tel:[phone] Referring Provider: [place], [address] . tel:[phone] [facility], [address], [place], [place], [address] , tel: [phone] [employer] Chronic respiratory failure with hypoxiaAortic atheroscleros isGAD (generalized anxiety disorder)[facility] ntial (primary) hypertension 8 [place] Hernando. [address] [place], [address], . tel:[phone] Referring Provider: [place], [address] . tel:[phone] [facility], [address], [place], [place], [address] , tel: [phone] [employer] snf current use of opiate analgesicSore throat 8 English Villagomez. [address] [place], [address], . tel:[phone] Referring Provider: Hernando Velasquez, [place], [address] . tel:[phone] [facility], [address], [place], [place], [address] , tel: [phone] [employer] Hyponatremia Sep-0 8 English Villagomez. [address] [place] [address], [address], . tel:[phone] Referring Provider: Hernando Velasquez, [place], [address] . tel:[phone] [facility], [address], [place], [place], [address] , tel: [phone] [employer] Chronic respiratory failure with hypoxiaUnspec ified convulsionsEs sential (primary) hypertensionM orbid (severe) obesity due to excess caloriesGastr oparesis 8 English Villagomez. [address] [place], [address], . tel:[phone] Referring Provider: Hernando Velasquez, [place], [address] . tel:[phone] [facility], [address], [place], [place], [address] , tel: [phone] [employer] SOB (shortness of breath) 7 English Villagomez. [address] [place], [address], [place]. tel:[phone] [facility], [address], [place], [place], [address] , tel: [phone] [employer] Morbid obesity due to excess caloriesSeizu reChronic respiratory failure, unspecified whether with hypoxia or hypercapniaOt her and unspecified hyperlipidemi aAortic atheroscleros isOsteoarthri tis of knee, unspecifiedBi polar 1 disorderEssen tial tremor 7 [place] Hernando. [address] [place], [place], [address], [place]. tel:[phone] Referring Provider: Hernando Velasquez, [address] [place], [address] . tel:[phone] [facility], [address], [place], [place], [address] , tel: [phone] Aaron Chronic respiratory failure, unspecified whether with hypoxia or hypercapniaBi polar 1 disorderClass 3 obesity with serious comorbidity and body mass index (BMI) of 40.0 to 44.9 in adult, unspecified obesity typeSeizureSO B (shortness of breath)Benign essential hypertension 7 English Villagomez. [address] [place], [place], [address], [place]. tel:[phone] Referring Provider: Hernando Velasquez, [place], [address] . tel:[phone] [facility], [address], [place], [place], [address] , tel: [phone] [employer] Weakness 7 Eder Kennedy. [address] [address], [facility], . tel:[phone] [place], [address], [place], [place], [address] , tel: [phone] [employer] Weakness 7 Eder Kennedy. [address] [address], [place], [address], [place]. tel:[phone] [facility], [address], [place], [place], [address] , tel: [phone] [employer] Essential hypertensionM ixed hyperlipidemi aModerate episode of recurrent major depressive disorderSeizu reGastroesoph ageal reflux disease, esophagitis presence not specifiedMorb id obesity due to excess caloriesSyndr ome of inappropriate antidiuretic hormone 7 Eder Kennedy. [address], [address], [place]. tel:[phone] Referring Provider: Marcia Gaines, [facility] [address], [place], [facility]. tel:[phone] [facility], [address], [place], [place], [address] , tel: [phone] Aaron Screening mammogram, encounter for 7 Eder Kennedy. [address], [facility], [place]. tel:[phone] [facility], [address], [place], [place], [address] , tel: [phone] [employer] SOB (shortness of breath)Acute rhinosinusiti s [facility]. [address] [place] [address], [id number], . tel:[phone] Referring Provider: Marcia Gaines, [address] [place] [address], [facility]. tel:[phone] [facility], [address], [place], [place], [address] , tel: [phone] Aaron SeizureEssent ial hypertensionH yponatremiaMi xed hyperlipidemi aMorbid obesity due to excess caloriesModer ate episode of recurrent major depressive disorderLong term use of drug 6 Eder Kennedy. [address], [facility], [place]. tel:[phone] Referring Provider: Marcia Gaines, [facility] [address], [facility]. tel:[phone] [facility], [address], [place], [place], [address] , tel: [phone] [employer] SOB (shortness of breath) 6 Eder Kennedy. [address] [address], [place], [address], [place]. tel:[phone] [facility], [address], [place], [place], [address] , [place] tel: [phone] [employer] Pathological fracture, left ankle, sequela Sep-2 8-201 6 Edersky Delacruznifer. 1414 [facility], [address], [place], [address], [place]. tel: [phone] [facility], [address], [place], [place], [address] , [place] tel: [phone] [employer] Pathological fracture, left ankle, sequela Sep-2 3-201 6 [place] Kennedy. [address], [place], [address], [place]. tel: [phone] [facility], [address], [place], [place], [address] , [place] tel: [phone] [employer] Pathological fracture, left ankle, sequela Sep-1 6-201 6 Eder Kennedy. 1414 [facility], [address], [place], [address], [place]. tel: [phone] [facility], [address], [place], [place], [address] , [place] tel: [phone] [employer] SANTI (obstructive sleep apnea) May-2 6 Baltazar Lanie. [address] [place], [address]. tel: [phone] [facility], [address], [place], [place], [address] , [place] tel: [phone] [employer] Carpal tunnel syndrome, unspecified upper limb Apr-1 8-201 6 Meg Serrano [address] [place], [place], [address], [place]. tel:[phone] [facility], [address], [place], [place], [address] , [place] tel: [phone] [employer] Osteoarthriti s of knee, unspecified Apr-0 6-201 6 Meg Toney. [address] [place], [place], [address], [place]. tel:[phone] [facility], [address], [place], [place], [address] , [place] tel: [phone] [employer] Chronic, continuous use of opioidsOther and unspecified hyperlipidemi aImpaired fasting glucoseSleep apnea, unspecified typeEssential (primary) hypertensionF yanci Lane irwin 6 Meg Toney. [address] [place], [place], [address], [place]. tel:[phone] Referring Provider: Feng Whitley, [address] [place], [address] . tel:[phone] [facility], [address], [place], [place], [address] , [place] tel: [phone] [employer] Impaired fasting glucoseOther and unspecified hyperlipidemi aChronic, continuous use of opioids 6 Meg Toney. [address] [place], [place], [address], [place]. tel:[phone] Referring Provider: Feng Whitley, [address] [place], [address] . tel:[phone] [facility], [address], [place], [place], [address] , [place] tel: [phone] [employer] Lung nodule seen on imaging study 6 Meg Toney. [address] [place], [place], [address], [place]. tel:[phone] [facility], [address], [place], [place], [address] , [place] tel: [phone] [employer] Sleep apnea, unspecified type 6 Meg Toney. [address] [place], [place], [address], [place]. tel:[phone] [facility], [address], [place], [place], [address] , [place] tel: [phone] [employer] Syndrome of inappropriate antidiuretic hormone 5 Meg Toney. [address] [place], [place], [address], [place]. tel:[phone] Referring Provider: Feng Whitley, [address] [place], [address] . tel:[phone] [facility], [address], [place], [place], [address] , tel: [phone] [employer] Low serum sodiumSyndrom e of inappropriate antidiuretic hormone May-0 9201 5 Meg Sefl [place], [address], [place]. tel:[phone] [facility], [address], [place], [place], [address] , tel: [phone] [employer] Low sodium levels May-0 5 Meg Self [place], [address], [place]. tel:[phone] Referring Provider: Feng Whitley, [address] [place], [address] . tel:[phone] [facility], [address], [place], [place], [address] , [place] tel: [phone] [employer] DermatitisEss ential (primary) hypertensionE ncntr for general adult medical exam w/o abnormal findingsHypon atremia May-0 5 Torin John. [address] [place], [address], [place]. tel:[phone] Referring Provider: Feng Whitley, [address] [place], [address] . tel:[phone] [facility], [address], [place], [place], [address] , [place] tel:[phone] [employer] Sleep apnea, unspecified 4201 [address] Meg Self [place], [address], [place]. tel:[phone] [facility], [address], [place], [place], [address] , tel: [phone] [employer] Hyperosmolali ty and/or hypernatremia Unspecified disease of white blood cells Apr-0 8201 5 Meg Self [place], [address], . tel:[phone] Referring Provider: Feng Whitley, [address] [place], [address] . tel:[phone] [facility], [address], [place], [place], [address] , tel: [phone] [employer] Insomnia with sleep apnea, unspecifiedBe nign essential hypertensionB ackache, unspecifiedOt her and unspecified hyperlipidemi aOsteoarthros is, generalized, involving unspecified siteEsophagea l refluxOther convulsionsRi ght knee DJDAnalgesic useRoutine general medical examination at a health care facility Sep-1 0 5 Meg Toney. [address] [place], [place], [address], [place]. tel:[phone] Referring Provider: Feng Whitley, [address] [place], [address] . tel:[phone] [facility], [address], [place], [place], [address] , [place] tel: [phone] [employer] Impaired fasting glucose Sep-0 9 5 Meg Toney. [address] [place], [place], [address], [place]. tel:[phone] Referring Provider: Feng Whitley, [address] [place], [address] . tel:[phone] [facility], [address], [place], [place], [address] , [place] tel: [phone] [employer] Benign essential hypertensionU nspecified idiopathic peripheral neuropathyIns omnia with sleep apnea, unspecifiedOt her convulsionsIr ritable bowel syndromeGenit al herpes, unspecified Feb-0 5 5 Torin John. [address] [place], [address], [place]. tel:[phone] Referring Provider: Feng Whitley, [address] [place], [address] . tel:[phone] [facility], [address], [place], [place], [address] , tel: [phone] [employer] No Information 4 Meg Toney. [address] [place], [place], [address], . tel:[phone] Referring Provider: Feng Whitley, [address] [place], [address] . tel:[phone] [facility], [address], [place], [place], [address] , [place] tel: [phone] [employer] Neoplasm of uncertain behavior of face Mar- 4 [facility] Dora. [facility] [place], [address], . tel:[phone] [facility], [address], [place], [place], [address] , tel:[phone] Aaron Benign essential hypertensionB ackache, unspecifiedOt her and unspecified hyperlipidemi aUnspecified idiopathic peripheral neuropathyCTS (carpal tunnel syndrome)SANTI on CPAP 3 4 Meg Toney. [address] [place], [place], [address], . tel:[phone] Referring Provider: Feng Whitley, [address] [place], [address] . tel:[phone] [facility], [address], [place], [place], [address] , tel:[phone] [employer] Snoring November-2 4 Torin John. [facility] [place], [address], [place]. tel:[phone] [facility], [address], [place], [place], [address] , [place] tel:[phone] [employer] BENIGN HYPERTENSIONH YPERLIPIDEMIA NEC/NOSLong-t erm (current) use of other medicationsFA M HX-DIABETES MELLITUSImpai red fasting glucose November-0 6 4 Meg Toney. [address] [place], [place], [address], [place]. tel:[phone] Referring Provider: Feng Whitley, [address] [place], [address] . tel:[phone] [facility], [address], [place], [place], [address] , [place] tel: [phone] [employer] Iron deficiency anemia Fe- 4 Meg Toney. [address] [place], [place], [address], [place]. tel:[phone] Referring Provider: Feng Whitley, [address] [place], [address] . tel:[phone] [facility], [address], [place], [place], [address] , [place] tel: [phone] No Information Apr-3 3 Giovanny Dela Cruz. [address] [place], [place], [address]. tel:[phone] [facility], [address], [place], [place], [address] , [place] tel: [phone] [employer] No Information Apr- 3 Meg Toney. [address] [place], [place], [address], [place]. tel:[phone] [facility], [address], [place], [place], [address] , [place] tel: [phone] [employer] IRRITABLE BOWEL SYNDROMEBENIG N HYPERTENSIONI NINA PERIPH NEURPTHY NOSESOPHAGEAL REFLUXGENERAL OSTEOARTHROSI SCONVULSIONS NECHeart murmur Oct-0 3 Torin John. [address] [place], [address], [place]. tel:[phone] Referring Provider: Feng Whitley, [address] [place], [address] . tel:[phone] [facility], [address], [place], [place], [address] , [place] tel: [phone] [employer] Cough November- 3 Meg Toney. [address] [place], [place], [address], [place]. tel:[phone] [facility], [address], [place], [place], [address] , tel: [phone] Aaron BENIGN HYPERTENSIONB ACKACHE NOSCONVULSION S NECRight knee DJDEsophageal refluxOther and unspecified hyperlipidemi a 3 Meg Toney. [address] [place], [place], [address], . tel:[phone] Referring Provider: Feng Whitley, [address] [place], [address] . tel:[phone] [facility], [address], [place], [place], [address] , tel: [phone] Aaron Other and unspecified hyperlipidemi aBenign essential hypertensionL coleen-term (current) use of other medications 3 Meg Toney. [address] [place], [place], [address], . tel:[phone] Referring Provider: Feng Whitley, [address] [place], [address] . tel:[phone] [facility], [address], [place], [place], [address] , tel: [phone] Aaron No Information 2 Meg Toney. [address] [place], [place], [address], . tel:[phone] Referring Provider: Feng Whitley, [address] [place], [address] . tel:[phone] [facility], [address], [place], [place], [address] , tel: [phone] Aaron IDIO PERIPH NEURPTHY NOSCONVULSION S NECBENIGN HYPERTENSIONG ENITAL HERPES NOSHYPERLIPID EMIA NEC/NOSAllerg ic rhinitis 2 Torin John. [address] [place], [address], [place]. tel:[phone] Referring Provider: Feng Whitley, [address] [place], [address] . tel:[phone] [facility], [address], [place], [place], [address] , tel: [phone] Aaron Blood in stool 2 Meg Toney. [address] [place] [address], [address], . [phone] Referring Provider: Feng Whitley, [address] [place], [address] . tel:[phone] [facility], [address], [place], [place], [address] , tel: [phone] Aaron Long-term (current) use of other medications 1 Meg Toney. [address] [place] [address], [address], . tel:[phone] Referring Provider: Feng Whitley, [address] [place], [address] . tel:[phone] [facility], [address], [place], [place], [address] , tel: [phone] Aaron No Information 1 Meg Toney. [address] [place] [address], [address], . tel:[phone] Referring Provider: Feng Whitley, [address] [place] [address], [address] . tel:[phone] [facility], [address], [place], [place], [address] , tel: [phone] Aaron HYPERLIPIDEMI A NEC/NOSLONG-T ERM USE MEDS NEC 1 Meg Serrano [address] [place] [address], [address], [place]. [phone] [facility], [address], [place], [place], [address] , tel: [phone] Aaron No Information 1 Meg Self [place], [address], [place]. tel: [phone] [facility], [address], [place], [place], [address] , [place] tel: [phone] Aaron IDIO PERIPH NEURPTHY NOS 1 Torin John. [address] [place], [address], [place]. tel: [phone] [facility], [address], [place], [place], [address] , [place] tel: [phone] Aaron BENIGN HYPERTENSION 1 Meg Self [place], [place], [address], [place]. tel: [phone] [facility], [address], [place], [place], [address] , tel: [phone] Aaron HERPES ZOSTER NOS Jun- 0 Meg Serrano [address] [place] [address], [address], [place]. tel: [phone] [facility], [address], [place], [place], [address] , [place] tel: [phone] Aaron SCREEN MALIG NEOP-COLON 0 Meg Self [place], [address], [place]. tel: [phone] [facility], [address], [place], [place], [address] , [place] tel: [phone] Aaron VACCIN FOR INFLUENZA 201 0 Meg Serrano [address] [place] [address], [address], [place]. tel: [phone] [facility], [address], [place], [place], [address] , [place] tel: [phone] Aaron TEAR FILM INSUFFIC NOS Sep-0 2-201 0 Conversion Doctor. [address] [facility], [place], [address], [place]. [facility], [address], [place], [place], [address] , [place] tel:[phone] [employer] FAM HX-DIABETES MELLITUS 2- 0 Elizabethcorrina Self [place], [address], [place]. tel:[phone] [facility], [address], [place], [place], [address] , tel: [phone] [employer] GENERAL OSTEOARTHROSI S 0 Sugeysilvina Self [place], [address], [place]. tel:[phone] [facility], [address], [place], [place], [address] , [place] tel: [phone] [employer] GENITAL HERPES NOS 0 Elizabethcorrina Serrano [place], [address], [place]. tel:[phone] [facility], [address], [place], [place], [address] , [place] tel: [phone] [employer] CONVULSIONS NEC 6200 9 Elizabethcorrina Serrano [place], [place], [address], [place]. tel:[phone] [facility], [address], [place], [place], [address] , [place] tel: [phone] [employer] No Information 0 2 8 Elizabethcorrina ToneyViraj Self [place], [address], [place]. tel:[phone] [facility], [address], [place], [place], [address] , tel:[phone] [employer] MIGRNE UNSP WO NTRC MGRNESOPHAGEA L REFLUX 0 7 Sugeysilvina ToneyViraj Self [place], [place], [address], [place]. tel:[phone] [facility], [address], [place], [place], [address] , [place] tel: [phone] [employer] HORMONE REPLACE POSTMENO 9[address] 7 Meg Self [place], [place], [address], . tel:[phone] [facility], [address], [place], [place], [address] , tel: [phone] [employer] SCREEN LIPOID DISORDERS 7200 5 Meg Toney. [address] [place], [place], [address], . tel:[phone] [facility], [address], [place], [place], [address] , tel: [phone] [employer] ROUTINE MEDICAL EXAM Dec-0 4200 3 Meg Toney. [address] [place], [place], [address], . tel:[phone] [facility], [address], [place], [place], [address] , tel: [phone] [employer] SCREEN MAL NEOP OT SITE 2 Meg Toney. [place], [address], . tel:[phone] Family History Family Member Type Diagnosis Age [...] doses, administered 21 days apart administered Note: [facility] ; Source: Other Provider Fluzone High-Dose, high dose , preservative free administered Note: done at the [place] (date is approximate) ; Source: Source Unspecified Pfizer-BioNTech COVID19 Vaccine, 0.3mL per dose, 2 doses, administered 21 days apart administered Note: [facility] ; Source: Source Unspecified Pfizer-BioNTech COVID19 Vaccine, 0.3mL per dose, 2 doses, administered 21 days apart administered Note: [facility] ; Source: Source Unspecified pneumococcal polysaccharide vaccine, 23 valent administered Note: hospital ; [facility] rce: Source Unspecified Flublok, quadrivalent, preservative [...] Source: New Immuniza tion Record Fluzone Quad 0187-4849, preservative free, split virus, 0.5mL dosage administered Source: New Immuniza tion Record Pneumococcal conjugate PCV 13 administere d Source: New Immunization Record Influenza, injectable, quadrivalent, preservative free, 3 yrs or older administered Source: New Immuniz ation Record Influenza, injectable, quadrivalent, preservative free, 3 yrs or older administered Source: New Immuniz ation Record Fluzone administered Note: [facility] 10898 51808 ; Source: New Immunization Record Fluzone administered Note: [facility]# 4928 7778-63 ; Source: New Immunization Record Flu (split) (3 yrs or older) administered Source: New Immunization Record 85223 - Influenza administered Source: So urce Unspecified 35043 - Influenza administered Source: So urce Unspecified 71896 - Pneumococcal_PPV23 administered S ource: Source Unspecified 14181 - Influenza administered Source: So urce Unspecified 12220 - Influenza administered Source: So urce Unspecified 75420 - Influenza administered Source: So urce Unspecified 74111 - Influenza administered Source: So urce Unspecified 02506 - Influenza administered Source: So urce Unspecified 50350 - Influenza administered Source: So urce Unspecified Payers Payer name Insurance type Covered democrat ID Authoriza tion(s) AETNA PPO CI [id number] AETNA PPO CI [id number] AETNA PPO CI [id number] AETNA [facility] [id number] [facility] [id number] AETNA [facility] AD[facility]ANTAGE [facility] [place] [id number] A[employer]NA [facility] [place] [id number] A[employer]NA [facility] [place] [id number] [employer]NA [facility] [id number] Social History Type Description Quantity Date Captured [...] and counseling completed Referral Referred To: [address] [facility] [place], [place], [phone] Ordered: SCREENING MAMMOGRAM (CAD) ordered Referral Ordered: JUAN C POLANCO -Allopathic & Osteopathic Physicians : Orthopaedic Surgery (related to Follow-up exam) ordered Referral Referred To: JUAN C POLANCO [address] [place], [phone] Ordered: Referrals: Orthopedic Surgery. JUAN C POLANCO. Evaluation/diagnostic/treatment - Level 3 Appointment date/timeframe: 09/24/2022 ordered Referral Ordered: COLONOSCOPY, Flexible, Proximal To Splenic, Diagnostic, Wor W/O Collection Of Sp ordered Referral Ordered: HANG (ankle brachial index) ordered Referral Referred To: Dean Stephenson MD [address] [facility] [address] [place], [phone] Ordered: Referrals: Pulmonology. Dean Stephenson MD. Evaluation/diagnostic/treatment [...] weightpt cannot walk at all bc of hon89yivver strength in right legstrengthin right arm 2/5strength in left arm 5/5pain in rigth leg 5/10pain in rigth arm 7/10pain in left arm 0/10pt has no gait bc of akapt [facility] armaaa[facility] also has respiratory failure and is on oxygenpower mobility device is needed to use the bathroomcan and walker is not able to be used bc pt cannot walk at all bc she has left akapt cannot use manual wheelchair bc of weaknkess and pain in [facility] cannot use tiller of a POC bc of pain and weakness in [facility] armpt can safely use pmd in homept [...] screeningimmunizations--utdmood-- up and downmemory-- fine hospital and [facility] f/u re spiratpry failure-- still on oxygenleft aka-- from tibial fracture, can maneuver in wheelchairgerd-- controlled on medhtn-- controlled on medaa-- seen on scancerebral atrophy-- memory okgad-- controlled with ativanckd 3-- has had luan also in past Chronic Conditions *See Chronic Conditions HPI OV for form Patient presents for evaluation [...] have meds near her to confirm today telehealth Telehealth visit done today via face to face audio/visual call with pt's verbal consent due to restrictions from the COVID 19 pandemic. All issues as below were discussed and addressed but no physical exam was performed unless allowed by visual confirmation on the video visit. This was performed while I was in my office in [place], [place], and pt. was in their home in [place]. hospital f/u 68 year old reagan patel who presents for hospital follow-up. She was admitted to [facility] on 06/10/2019. Patient presented to [...] x-ray. Patient was given home doses of Westside and was given Flexeril, lidocaine patches and [...] capsaicin, Baclofen PO and home dose of Westside. Patient was discharged with no new medications. She had no other imaging performedPatient was noted to have hyperkalemia one month ago. We will check labs todayShe has a TENS units (latex free) but she still has a rash from the patches.Patient feels that her hydrocodone needs to be increased. 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 We fabiana l continue to monitor Related to Cerebral atrophy [...]
[2025-04-25] VITALS (10 sets, daily range): BP systolic 95–136; BP diastolic 40–73; PULSE 62–76; RESP 11–16; TEMP 36.5; O2SAT 100
--- NOTE | ~2025-04-25 | XR_ITS ---
EXAMINATION: XR chest 1V, 04/25/2025 9:40 CDT HISTORY: syncope COMPARISON: No comparisons available. Technique: Single view. Findings: The lungs are clear, no effusion. No pneumothorax. Heart is normal size. Mediastinal and hilar contours are within normal limits. Bony thorax no acute abnormality. Impression: No acute cardiopulmonary abnormality. Reviewed, dictated and finalized at location P. Impression: No acute cardiopulmonary abnormality.
--- NOTE | ~2025-04-25 | CT_ITS ---
CT ABDOMEN AND PELVIS WITHOUT CONTRAST Clinical History: ab pain Comparison: 04/23/2024 Technique: Unenhanced axial images lung bases to symphysis pubis Coronal, sagittal reformats CT images acquired with automatic exposure control for dose reduction DLP: 1452 mGy-cm Findings: Without intravenous contrast, sensitivity for detecting visceral parenchymal abnormalities decreased. Lung bases: Clear. Visualized heart and pericardium: Unremarkable. Liver: Unremarkable. Gallbladder: Unremarkable. Spleen: Unremarkable. Pancreas: Unremarkable. Adrenal glands: Unremarkable. Kidneys: Right kidney- No hydronephrosis. No renal stones. Left kidney- No hydronephrosis. 2 mm stone. Distal esophagus/stomach: Unremarkable. Small bowel loops: Normal caliber and wall thickness. Colon: Normal caliber and wall thickness. Appendix not seen. Trace presacral/perirectal stranding persists. Nodes: No enlarged nodes. Peritoneum: No ascites. No free intraperitoneal air. Urinary bladder: Unremarkable. Uterus: Removed. Adnexa: No masses. Bones: No acute bony abnormality. Soft tissues: Unremarkable. Unopacified abdominal aorta: No aneurysmal dilatation. Atherosclerotic disease. IMPRESSION: 1. No acute findings. 2. Chronic findings as above. Reviewed, dictated and finalized at location R.
--- NOTE | ~2025-04-25 | CT_ITS ---
EXAMINATION: CT brain wo aidan, 04/25/2025 9:30 CDT HISTORY: syncope COMPARISON: No comparisons available. Technique: Axial images obtained of the brain without contrast. One or more of the following dose reduction techniques were used: automated exposure control, adjustment of the mA and/or kV according to patient size, use of iterative reconstruction technique. Findings: There are remote bilateral cerebellar infarcts. No acute infarct or hemorrhage. No midline shift or mass effect. No extra-axial fluid collections. Mastoid air cells unremarkable. Sinuses and orbits unremarkable. No acute fracture. No significant facial or scalp soft tissue swelling evident. No radiopaque foreign body is seen. Impression: 1.No acute intracranial abnormality. Reviewed, dictated and finalized at location P. Impression: 1.No acute intracranial abnormality.
--- NOTE | 2025-04-25 09:16 | ECG_ITS ---
Test Date: 2025-04-25 09:25:16 Measurements Intervals [place] Rate: 70 P: 29 WV: 167 QRS: -12 QRSD: 97 T: 62 QT: 431 QTc: 466 Interpretive Statements SINUS RHYTHM LEFT VENTRICULAR HYPERTROPHY POOR R WAVE PROGRESSION HIGH LATERAL INFARCT, AGE INDETERMINATE BASELINE ARTIFACT- I, II, III, AVR, AVL ABNORMAL ECG Compared to ECG 03/27/2025 11:53:22 NO SIGNIFICANT CHANGE Electronically Signed On 04-25-2025 09:29:59 CDT by Balaji Gomez D.O.
--- NOTE | 2025-04-25 09:30 | PC.NURSE ---
Pt to CT via stretcher on portable monitor at this time
[2025-04-25 09:38] LABS: Hematocrit 26.8 % (37.0-47.0); Hemoglobin 8.2 g/dL (12.0-15.0); Immature Granulocyte Percent A 0.3 % (0-0.5); Lymphocytes Absolute Auto 1.81 K/mm3 (0.9-3.2); Mean Corpuscular HGB Conc 30.6 g/dl (32-36); Mean Corpuscular Hemoglobin 26.0 pg (26-34); Mean Corpuscular Volume 85.1 fl (80-100); Nucleated Red Blood Cells Absolute Auto 0.000 K/mm3 (0.0-0.012); Nucleated Red Blood Cells Perc 0.0 % (0.0-0.2); Platelet Count Result 246 k/mm3 (150-375); Red Blood Count 3.15 M/mm3 (4.2-5.4); White Blood Count 6.5 K/mm3 (4.5-10.0)
[2025-04-25 09:50] LABS: INR 1.1; Partial Thromboplastin Time 33.3 Seconds (22.3-36.8); Prothrombin Time 14.3 Seconds (11.1-14.7)
[2025-04-25 09:52] LABS: Alanine Aminotransferase 19 U/L (6-35); Albumin Level 3.4 g/dL (3.5-5.1); Alkaline Phosphatase 67 U/L (38-126); Anion Gap 5 mmol/L (4-12); Aspartate Amino Transferase 21 U/L (14-36); Bilirubin,Total 0.2 mg/dL (0.2-1.3); Blood Urea Nitrogen 21 mg/dL (7-17); Calcium 8.4 mg/dL (8.4-10.2); Carbon Dioxide 27 mmol/L (22-30); Chloride 96 mmol/L (98-107); Estimated CRCL calculation 76 ml/min; Estimated Glomerular Filt Rate > 60; Glucose 103 mg/dL (65-110); Potassium 4.5 mmol/L (3.4-5.0); Sodium 128 mmol/L (137-145); Total Protein 5.9 g/dL (6.3-8.2)
[2025-04-25] MEDS: LACTATED RINGERS 1,000 ML 999 ML IV CONT (09:57)
--- OUTSIDE RECORDS SUMMARY | 2025-04-25 10:02 | XMS_ITS ---
Author Organization [facility] Support Name Relationship Address Phone Gildardo Celestina Guarantor [address] [place] [id number] Celestina Ewing Agent [address] [place], [place] [phone] Yesica Rodney Agent Unknown Yesica Rodney Emergency Contact Unknown Allergies and adverse reactions Code CodeSystem Substance Reaction Severity StartDate Concern Status [id number] SNOMED CT Sulfa Antibiotics Unknown 03/23/2016 active latex Anaphylaxis (code- 92194513, SNOMED CT) Mild 03/23/2016 active 5933 RXNORM Iodine Anaphylaxis (code- 81180326, SNOMED CT) Moderate 03/23/2016 active epidural Unknown 03/23/2016 active 3322 RXNORM Diazepam Nausea (code- 438212406, SNOMED CT) Moderate 03/23/[address] Barbiturates Unknown 03/23/2016 acti ve Immunizations Immunization Status Vaccine Details Vaccine Code CodeSystem Date Notes Influenza completed Influenza, high-dose, split virus, quadrivalent, injectable, preservative free 197 CVX created date: 05/24/2017 administer ed date: 04/26/[address] Velasquez Influenza completed Influenza, high-dose, split virus, quadrivalent, injectable, preservative free Given intramuscularly 197 CVX created date: 05/20/2016 consent date: 05/20/2016 administer ed date: 05/20/2016 Educated by azra on 05/20/2016 Given in rt deltoid Pneumovax Dose 1 completed created date: 05/13/2016 consent date: 05/13/2016 administer ed date: 10/24/2015 Given prior to admission TB 1 Step Mantoux (PPD) completed tuberculin skin test; unspecified formulation 98 CVX created date: 03/09/2017 administer ed date: 12/06/2016 Mental Status Section Date Assessment Total Score Description 05/29/2017 BIMS 15 cognitively int act CAM 0 No delirium ind icated PHQ-9 11 moderate depres betty 03/11/2017 BIMS 15 cognitively int act CAM 0 No delirium ind icated PHQ-9 11 moderate depres betty Problems Problem # Description Date of onset Resolved Date Code CodeSystem Concern Status 1 BIPOLAR DISORDER, UNSPECIFIED 12/05/[address] active 2 CHRONIC RESPIRATORY FAILURE, UNSPECIFIED WHETHER WITH HYPOXIA OR HYPERCAPNIA 12/05/[address] active 3 EDEMA, UNSPECIFIED 12/05/[address] C T active 4 GENERALIZED ANXIETY DISORDER 12/05/[address] active 5 HYPEROSMOLALITY AND HYPERNATREMIA 12/05/[address] active 6 MAJOR DEPRESSIVE DISORDER, RECURRENT, UNSPECIFIED 12/05/[address] active 7 URINARY TRACT INFECTION, SITE NOT SPECIFIED 12/05/[address] active 8 CONSTIPATION, UNSPECIFIED 04/30/[address] active 9 ENCOUNTER FOR OTHER SPECIFIED AFTERCARE 03/24/[address] active 10 MUSCLE WEAKNESS (GENERALIZED) 03/24/[address] active 11 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 03/23/[address] active 12 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 03/23/[address] active 13 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 03/23/[address] active 14 CONVERSION DISORDER WITH SEIZURES OR CONVULSIONS 03/23/[address] active 15 DISPLACED BIMALLEOLAR FRACTURE OF LEFT LOWER LEG, INITIAL ENCOUNTER FOR CLOSED FRACTURE 03/23/[address] active 16 ESSENTIAL (PRIMARY) HYPERTENSION 03/23/[address] active 17 GASTRO-ESOPHAGEAL REFLUX DISEASE WITHOUT ESOPHAGITIS 03/23/[address] active 18 HYPERLIPIDEMIA, UNSPECIFIED 03/23/[address] active 19 HYPO-OSMOLALITY AND HYPONATREMIA 03/23/[address] active 20 IMPACTED CERUMEN, BILATERAL 03/23/[address] active 21 INSOMNIA, UNSPECIFIED 03/23/[address] active 22 OTHER ASTHMA 03/23/[address] acti ve 23 OTHER CIRRHOSIS OF LIVER 03/23/[address] active Reason for Referral No Reasons for Referral Entered Social History Social History Observation Description Start Date End Date Code Code System Current Smoking Status Tobacco smoking consumption unknown [id number] SNOMED CT Sex Assigned At Female 1950 45930-3 [facility] Gender Identity Sexual Orientation Vital Signs Code Code System Vitals Name Values and Units Timing Information 70985-2 [facility] Pain Level Value=0.0 05/29/2017 16775-3 LOINC Weight Jkvgf=869.4 Units=Lbs 9279-1 [facility] Respiratory Rate Value=20.0 Units=/m in 05/06/2017 8462-4 [facility] Blood Pressure-Diastolic Value=97 Un its=mmHg 05/06/2017 8480-6 [facility] Blood Pressure-Systolic Lewrz=679 Un its=mmHg 05/06/2017 8310-5 [facility] Body Temperature Value=97.6 Units= F 05/06/2017 8867-4 [facility] Heart rate Value=93.0 Units=/min 06/2017 65678-8 [facility] O2 % BldC Oximetry Value=97.0 Units= % 03/24/2017 8302-2 [facility] Height Value=63.0 Units=Inches 12/10/2016
--- OUTSIDE RECORDS SUMMARY | 2025-04-25 10:02 | XMS_ITS | Clinical Summary ---
Author Organization [facility] Address [address] [place] [address] Care Team Providers Care Hospice Nurse Practitioner Name Role Phone Jose Manuel Gruber MD Unavailable [phone] Hernando Velasquez MD Primary Care Provider [phone] Allergies Active Allergy Reactions Criticality Noted Date Comments Barbiturates Unknown,Other (See comments) Medium 09/13/2006 Diazepam Unknown,Other (See comments) Low 09/13/2006 Fish Containing Products Anaphylaxis High 07/05/2019 Iodine Unknown,Other (See comments) Low 09/13/2006 Latex Unknown 06/28/2019 Menthol Hives,Itching,Rash Medium 07/08/2022 [place]dorf-3 Fatty Acids Unknown,Other (See comments) Low 12/12/2010 [...] daily. Indications: Controller Medication for Asthma Active olmesartan (BENICAR) 40 mg tabletIndications: hypertension [...] Active Additional Information Patient not taking.Reported on 04/18/2025 ipratropium-albute roL (DUO-NEB) 0.5-2.5 mg/3 mL nebulizer [...] or vomiting 20 tablet 07/12/20 20 Active Additional Information Patient not taking.Reported on 04/18/2025 ramelteon (ROZEREM) 8 mg tabletIndications: Sleep-Onset Insomnia [...] tablet Take by mouth 06/27/20 22 Active albuterol HFA (PROVENTIL HFA,VENTOLIN HFA,PROAIR HFA) 90 mcg/actuation inhalerIndications :Mild intermittent asthma without complication INHALE 2 PUFFS BY MOUTH EVERY 6 HOURS NEEDED FOR WHEEZING 18 g 5 08/27/19 23 Active isosorbide mononitrate ER (IMDUR) 30 mg 24 hr tablet 01/22/20 25 Active magnesium hydroxide 400 mg (170 mg magnesium) tablet,chewable Take by mouth Active Xarelto 20 mg tablet 02/06/20 25 Active irbesartan (AVAPRO) 300 mg tablet 01/22/20 25 Active busPIRone (BUSPAR) 10 mg tabletIndications: Generalized Anxiety Disorder Take 1 tablet (10 mg total) by mouth 3 (three) times a day Active clonazePAM (KlonoPIN) 0.5 mg tablet Take 1 tablet (0.5 mg total) by mouth 2 (two) times a day Active magnesium citrate solution Take 300 mL by mouth 01/19/20 25 Active senna-docusate (PERICOLACE) 8.6-50 mg Take 1 tablet by mouth daily Active tiZANidine (ZANAFLEX) 2 mg tablet 02/09/20 25 Active famotidine (PEPCID) 10 mg tablet Take 1 tablet (10 mg total) by mouth daily Active bisacodyL 5 mg tablet Take by mouth Active memantine (NAMENDA) 5 mg tablet Take 1 tablet (5 mg total) by mouth 2 (two) times a day 11/10/19 24 Active guaiFENesin ER (MUCINEX) 600 mg 12 hr tablet Take 2 tablets (1,200 mg total) by mouth 2 (two) times a day Active polyethylene glycol (MIRALAX) 17 gram/dose bulk powder Take 17 g by mouth 02/20/20 25 Active sodium chloride 1 gram tablet Take 1 tablet (1 g total) by mouth 2 (two) times a day Active furosemide (LASIX) 20 mg tablet Take 1 tablet (20 mg total) by mouth 2 (two) times a day Active venlafaxine XR (EFFEXOR-XR) 37.5 mg 24 hr capsule Take 1 capsule (37.5 mg total) by mouth daily Active hydrALAZINE (APRESOLINE) 25 mg tablet 12/26/19 25 Active furosemide (LASIX) 40 mg tabletIndications: Edema Take 40 mg by mouth 2 (two) times a day. Indications: visible water retention 025 Discontin ued(Other ) busPIRone (BUSPAR) 5 mg tablet 01/07/20 20 025 Discontin ued(Other ) ciprofloxacin (CIPRO) 500 mg tablet Take 500 mg by mouth every 12 (twelve) hours 06/23/20 025 Discontin ued(Thera py completed ) Active Problems Problem Noted Date Diagnosed Date Visit for wound check 03/07/2025 Cardiac pacemaker in situ 02/21/2025 Overview (02/21/2025): Medtronic Micra2 AV Leadless Pacemaker. Dx; CHB. DOI 02/21/2025-Alberto. [facility] remote. Exercise hypoxemia 04/15/2022 Assessment & Plan (07/08/2022 2:39 PM NATURAL RESOURCES FACULTY MEMBER): I did recommend that the patient decrease [...] 01/07/2022 Assessment & Plan (07/08/2022 2:39 PM NATURAL RESOURCES FACULTY MEMBER): The patient does have some cough with [...] 01/07/2022 Assessment & Plan (07/08/2022 2:39 PM NATURAL RESOURCES FACULTY MEMBER): She was intolerant of CPAP therapy and [...] 07/05/2020 Assessment & Plan (07/11/2020 6:58 AM NATURAL RESOURCES FACULTY MEMBER): - Patient tested positive for COVID-19 on 06/21/20 at her ch[facility] ([facility] in [place], [place]). - She reports her only symptom [...] SNF. Assessment & Plan (07/07/2020 6:25 PM NATURAL RESOURCES FACULTY MEMBER): - Pt states she was actually tested [...] protocol Assessment & Plan (07/06/2020 11:59 AM NATURAL RESOURCES FACULTY MEMBER): - recommend getting records from SNF to establish exact date of first (+) COVID test. - pt likely has completed days of isolation. Assessment & Plan (07/06/2020 7:34 AM NATURAL RESOURCES FACULTY MEMBER): - Per report, pt was tested for [...] protocol Assessment & Plan (07/05/2020 5:40 PM NATURAL RESOURCES FACULTY MEMBER): - Per report, pt was tested for [...] 07/05/2020 Assessment & Plan (07/11/2020 6:57 AM NATURAL RESOURCES FACULTY MEMBER): History of open periprosthetic tibia/fibula fracture s/p [...] left lower extremity. - PM&R consulted. - Banquet Attendant placed stump highway patrol officer / ampushield. Awaiting delivery of limb protector. - Patient not interested in prosthesis at this time. - PT/OT consults. - Plan for patient to return to her prior SNF when medically stable with ongoing PT/OT. - ID and Ortho following. Assessment & Plan (07/07/2020 6:27 PM NATURAL RESOURCES FACULTY MEMBER): - History of open periprosthetic tibia/fibula fracture [...] extremity Assessment & Plan (07/06/2020 3:07 PM NATURAL RESOURCES FACULTY MEMBER): - Cellulitis vs subcutaneous infection vs OM [...] recs. Assessment & Plan (07/05/2020 6:03 PM NATURAL RESOURCES FACULTY MEMBER): - Cellulitis vs subcutaneous infection vs OM [...] (07/08/2020): Added automatically from request for surgery [id number] Abnormal x-ray of extremity 07/20/2019 Acute exacerbation of chronic low back pain 06/26 Biliary colic 07/20/2019 Chronic lumbosacral pain 07/20/2019 Chronic respiratory failure 07/20/2019 Assessment & Plan (07/08/2020 4:27 PM NATURAL RESOURCES FACULTY MEMBER): - Per pt 2/2 COPD. No sings of acute exacerbation. - Continue home flonase - Continue home albuterol prn - On home is on 4L O2 at baseline Assessment & Plan (07/07/2020 6:26 PM NATURAL RESOURCES FACULTY MEMBER): - Per pt 2/2 COPD. No sings of acute exacerbation. - Continue home flonase - Continue home albuterol prn - On baseline 4L O2 Assessment & Plan (07/06/2020 7:33 AM NATURAL RESOURCES FACULTY MEMBER): - Per pt 2/2 COPD. No sings of acute exacerbation. - Continue home flonase - Continue home albuterol prn - On baseline 4L O2 Assessment & Plan (07/05/2020 6:00 PM NATURAL RESOURCES FACULTY MEMBER): - Per pt 2/2 COPD. No sings of acute exacerbation. - Continue home flonase - Continue home albuterol prn - On baseline 4L O2 Closed displaced bimalleolar fracture of right l ower leg 07/20/2019 Assessment & Plan (07/05/2020 6:01 PM NATURAL RESOURCES FACULTY MEMBER): - As elsewhere Deep venous insufficiency 07/20/2019 [...] 06/28/2019 Assessment & Plan (07/08/2020 4:26 PM NATURAL RESOURCES FACULTY MEMBER): - Follows with cardiology. - Continue home amlodipine, metoprolol, lasix, spironolactone. - Switched olmesartan to losartan as not on formulary. Assessment & Plan (07/07/2020 6:26 PM NATURAL RESOURCES FACULTY MEMBER): - Follows with cardiology - Continue home amlodipine, metoprolol, lasix, spironolactone - Switched olmesartan to losartan as not on formulary Assessment & Plan (07/06/2020 3:04 PM NATURAL RESOURCES FACULTY MEMBER): - Follows with cardiology - Continue home amlodipine, metoprolol, lasix, spironolactone - Switched olmesartan to losartan as not on formulary Assessment & Plan (07/05/2020 5:58 PM NATURAL RESOURCES FACULTY MEMBER): - Follows with cardiology - Continue home amlodipine, metoprolol, lasix, spironolactone - Switch olmesartan to losartan as not on formulary Syncope due to sick sinus syndrome 06/28/2019 Open displaced comminuted fr acture of shaft of left tibia, type IIIA, IIIB, or IIIC 06/28/2019 Overview (06/28/2019): Added automatically from request for surgery [id number] Assessment & Plan (07/08/2020 4:27 PM NATURAL RESOURCES FACULTY MEMBER): - See above. 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 After hours, the ID fellow education and outreach coordinator can be reached at [phone]. Assessment & Plan (07/05/2020 5:59 PM NATURAL RESOURCES FACULTY MEMBER): - L tibia and R ankle fractures s/p BRENNA in 06/2020 - Complicated by poor healing and multiple infections of L anterior leg wound - Pt of Dr. Shoemaker Hyponatremia 11/23/2017 Assessment & Plan (07/11/2020 6:59 AM NATURAL RESOURCES FACULTY MEMBER): - Pt with history of hypoNa (per report, baseline mid 120- low 130s). - Na 126 on admission. No AMS. - TSH wnl. Cortisol 17. - Na stable. Assessment & Plan (07/07/2020 6:26 PM NATURAL RESOURCES FACULTY MEMBER): - Pt with history of hypoNa (per report, baseline mid 120- low 130s). - Na 126 on admission. No AMS. - TSH wnl. Cortisol 17. - Diuretics were held and Na improved to 132. Restart when able. Assessment & Plan (07/06/2020 7:31 AM NATURAL RESOURCES FACULTY MEMBER): - Pt with history of hypoNa (per [...] Encounters Date Type Department Care Team Description 04/20/2025 Telephone [facility] Cardiology [address] [place] [address] [place] [phone] Adithya Dominguez MD 04/18/2025 11:30 AM CDT Office Visit [address] [phone] Vianca David NP Syncope due to sick sinus syndrome (HCC) (Primary Dx); Cardiac pacemaker in situ 04/18/2025 11:00 AM CDT Ancillary Procedure [place] [address] [place] [phone] Atrial fibrillation, unspecified type (HCC) (Primary Dx); Cardiac pacemaker in situ; CHB (complete heart block) 04/17/2025 Telephone [facility] Cardiology [address] [place] [address] [place] [phone] Adithya Dominguez MD 03/14/2025 Documentation [facility] Cardiology [address] [place] [address] [place] [phone] Vianca David NP Scheduling Appointments ([facility] Ms Ewing. This note is to inform you that we have scheduled you for a pacemaker check at 11:00 am on 04/18/2025. You are already scheduled to see Vianca David NP at 11:30 am. Please arrive to the office by 10:45 am for your appointments. Should you have any questions or concerns please contact our office at [phone]-select option #2, then select option #9./Thank you for your cooperation./Luana Decker Device RN) 03/07/2025 9:00 AM CDT Clinical Support [facility] Cardiology [address] [place] [address] [address] [place] [phone] Pacemaker (Primary Dx) 03/07/2025 8:30 AM CDT Ancillary Procedure [address] [place] [phone] Cardiac pacemaker in situ; CHB (complete heart block) 03/06/2025 Telephone [facility] Cardiology [address] [place] [address] [place] [phone] Adithya Dominguez MD 02/23/2025 Orders Only [place] [address] [place] [phone] Kathy Lott MD 02/22/2025 Orders Only [facility] Information Management [address] [place] [phone] Kathy Lott MD 02/22/2025 Telephone [place] [address] [place] [phone] Adithya Dominguez MD 02/22/2025 Orders Only [place] [address] [place] [phone] Adithya Dominguez MD 02/21/2025 Orders Only [facility] Cardiology [address] [place] [address] [place] [phone] Adithya Dominguez MD Cardiac pacemaker in situ (Primary Dx); CHB (complete heart block) (HCC) 02/21/2025 Orders Only [place] [address] [place] [phone] Kathy Lott MD from Last 3 Months [...] Sign Reading Time Taken Comments Blood Pressure 132/62 04/18/2025 11:20 AM CDT Pulse 84 04/18/2025 11:20 AM CDT Temperature 36.5 C (97.7 F) 01/16/2022 5:20 PM CDT Respiratory Rate 18 07/08/2022 2:24 PM NATURAL RES[employer] FACULTY MEMBER Oxygen Saturation 99% 04/18/2025 11: 20 AM CDT w/O2 Inhaled Oxygen Concentration - - Weight 77.3 kg (170 lb 6.4 oz) 04/18/2025 11:20 AM CDT per pt (wheelchair) Height 157.5 cm (5' 2) 04/15/2022 2:28 PM CDT Body Mass Index 31.17 04/15/2022 2:28 PM CDT Plan of Treatment Health Maintenance Due Date Last Done Comments Colon Cancer Screening-Colonoscopy 1950 Depression Screening 1950 Osteoporosis Screening-Bone Density Scan 1950 Well Visit 65+ 2017 Fall Risk Assessment 07/12/2021 07/12/2020 Breast Cancer Screening-Mammogram 02/19/2024 023 Covid-19 Vaccine (2024-2 6 season) 2025 05/29/2021, 08/14/2020, 08/14/2020, Additional history exists Influenza Vaccine (#1) 2025 9, 05/04/2018, 04/26/2017, Additional history exists DTaP/Tdap/Td Vaccine (3 - Td or Tdap) 11/23/2033 11/24/2023, 06/28/2019 Pneumococcal vaccine 65+ Completed 018, 05/04/2018, 04/04/2015 Zoster Vaccine Completed 01/25/2019, 10/26, 11/15/2018 Hepatitis B Screening Completed 06/10/2019 Hepatitis C Screening Completed 06/10/2019 Medical Devices Implanted Type Area Rubber Calender Helper Device Identifier Shelf Expiration Date Model / Serial / Lot Synthes 223.581 Lcp Combi [id number] 8 Hole Limit Contact Taper End Plate Bone - S0 - [id number] Implanted:Qty: 1 on 06/28/2019 by Lo Laura DO at [facility] Plate Left: Tibia Synthes I 223.581 / 0 / 0 Synthes 212.106 3.5mm 2.9mm 20mm Self Tap Lock Stardrive Conical Head T15 Full - S0 - [id number] Implanted:Qty: 1 on 06/28/2019 by Lo Laura DO at [facility] Screw Left: Tibia Synthes I 212.106 / 0 / 0 Synthes 212.108 3.5mm 2.9mm 24mm Self Tap Lock Stardrive Conical Head Pelvis T15 - S0 - [id number] Implanted:Qty: 1 on 06/28/2019 by Lo Laura DO at [facility] Screw Left: Tibia Synthes I 212.108 / 0 / 0 Synthes 212.109 3.5mm 2.9mm 26mm Self Tap Lock Stardrive Conical Head T15 Full - S0 - [id number] Implanted:Qty: 1 on 06/28/2019 by Lo Laura DO at [facility] Screw Left: Tibia Synthes I 212.109 / 0 / 0 Synthes 212.104 3.5mm 2.9mm 16mm Self Tap Lock Stardrive Conical Head T15 Full - S0 - [id number] Implanted:Qty: 2 on 06/28/2019 by Lo Laura DO at [facility] Screw Left: Tibia Synthes I 212.104 / 0 / 0 Synthes 212.107 3.5mm 2.9mm 22mm Self Tap Lock Stardrive Conical Head T15 Full - S0 - [id number] Implanted:Qty: 1 on 06/28/2019 by Lo Laura DO at [facility] Screw Left: Tibia Synthes I 212.107 / 0 / 0 Synthes 212.103 3.5mm 2.9mm 14mm Self Tap Lock Stardrive Conical Head T15 Full - [id number] Implanted:Qty: 2 on 06/30/2019 by Jacobo Shoemaker MD at [facility] Left: Tibia Synthes I 212.103 / / Synthes 212.109 3.5mm 2.9mm 26mm Self Tap Lock Stardrive Conical Head T15 Full - [id number] Implanted:Qty: 2 on 06/30/2019 by Jacobo Shoemaker MD at [facility] Left: Tibia Synthes I 212.109 / / Synthes 212.101 3.5mm 2.9mm 10mm Self Tap Lock Stardrive Conical Head T15 Full - [id number] Implanted:Qty: 1 on 06/30/2019 by Jacobo Shoemaker MD at [facility] Left: Tibia Synthes I 212.101 / / Synthes 212.107 3.5mm 2.9mm 22mm Self Tap Lock Stardrive Conical Head T15 Full - [id number] Implanted:Qty: 1 on 06/30/2019 by Jacobo Shoemaker MD at [facility] Left: Tibia Synthes I 212.107 / / Synthes 204.840 3.5mm 6mm 40mm 2.5mm Self Tap Small Hexagonal Socket Low Profile - [id number] Implanted:Qty: 1 on 06/30/2019 by Jacobo Shoemaker MD at [facility] Left: Tibia Synthes I 204.840 / / Synthes 204.832 3.5mm 6mm 32mm 2.5mm Self Tap Small Hexagonal Socket Low Profile - [id number] Implanted:Qty: 1 on 06/30/2019 by Jacobo Shoemaker MD at [facility] Left: Tibia Synthes I 204.832 / / Synthes 241.351 Lcp 12mm [id number] .7mm 5 Hole Collar 1/3 Tubular Plate Bone - [id number] Implanted:Qty: 1 on 06/30/2019 by Jacobo Shoemaker MD at [facility] Left: Tibia Synthes I 241.351 / / Synthes 241.351 Lcp 12mm [id number] .7mm 5 Hole Collar 1/3 Tubular Plate Bone - [id number] Implanted:Qty: 1 on 06/30/2019 by Jacobo Shoemaker MD at [facility] Right: Ankle Synthes I 241.351 / / Synthes 204.826 3.5mm 6mm 26mm 2.5mm Self Tap Small Hexagonal Socket Low Profile - [id number] Implanted:Qty: 1 on 06/30/2019 by Jacobo Shoemaker MD at [facility] Right: Ankle Synthes I 204.826 / / Synthes 212.102 3.5mm 2.9mm 12mm Self Tap Lock Stardrive Conical Head T15 Full - [id number] Implanted:Qty: 1 on 06/30/2019 by Jacobo Shoemaker MD at [facility] Right: Ankle Synthes I 212.102 / / Synthes 212.114 3.5mm 2.9mm 35mm Self Tap Lock Stardrive Conical Head T15 Full - [id number] Implanted:Qty: 1 on 06/30/2019 by Jacobo Shoemaker MD at [facility] Right: Ankle Synthes I 212.114 / / Synthes 223.641 Lcp Combi [id number] 14 Hole Limit Contact Taper End Plate Bone - [id number] Implanted:Qty: 1 on 06/30/2019 by Jacobo Shoemaker MD at [facility] Left: Tibia Synthes I 223.641 / / Synthes 204.824 3.5mm 6mm 24mm 2.5mm Self Tap Small Hexagonal Socket Low Profile - [id number] Implanted:Qty: 2 on 06/30/2019 by Jacobo Shoemaker MD at [facility] Left: Tibia Synthes I 204.824 / / Synthes 212.104 3.5mm 2.9mm 16mm Self Tap Lock Stardrive Conical Head T15 Full - [id number] Implanted:Qty: 2 on 06/30/2019 by Jacobo Shoemaker MD at [facility] Left: Tibia Synthes I 212.104 / / Explanted Type Area Rubber Calender Helper Device Identifier Shelf Expiration Date Model / Serial / Lot Synthes 204.836 3.5mm 6mm 36mm 2.5mm Self Tap Small Hexagonal Socket Low Profile - [id number] Explanted:Qty: 1 on 06/30/2019 at [facility] Right: Ankle Synthes I 204.836 / / Synthes 212.117 3.5mm 2.9mm 40mm Self Tap Lock Stardrive Conical Head T15 Full - [id number] Explanted:Qty: 1 on 06/30/2019 at [facility] Right: Ankle Synthes I 212.117 / / Procedures Procedure Name Priority Date/Time Associated Diagnosis Comments DEVICE CHECK - IN OFFICE Routine 04/18/2025 10:50 AM CDT Cardiac pacemaker in situ CHB (complete heart block) DEVICE CHECK - IN OFFICE Routine 03/07/2025 8:27 AM CDT Cardiac pacemaker in situ CHB (complete heart block) CARDIOLOGY DOCUMENT SCAN Routine 02/22/2025 2:45 PM [...] HEPATITIS PANEL, ACUTE Routine 06/10/2019 10:11 AM NATURAL RESOURCES FACULTY MEMBER from Last 3 Months or Most Recently Relevant to Health Maintenance Results * DEVICE CHECK - IN OFFICE (04/18/2025 10:50 AM CDT) Anatomical Region Laterality Modality Other Narrative 04/18/2025 8:47 PM CDT Medtronic Micra2 AV Leadless Pacemaker. Dx; CHB, PAF. DOI 02/21/2025-Alberto. [facility] Supervising MD: Dr Deshpande. Patient seen in device clinic today s/p Micra AVR pacemaker implant. Interrogation of VDD Leadless Pacemaker demonstrated appropriate device function. Battery function-3.14 V, >10.0 years remaining to ASHWINI. Electrode impedance, capture threshold, and measured r-wave are stable and appropriate. Presenting rhythm: VS, regular (SR) 76 bpm. Vpaced only-0.7%.%. AM-LAMINATOR PREFORMS 2.3%. VS only-97.1%. Medications;Lovenox, Lopressor. No programming changes made to device settings. See scanned report. Office pacemaker f/u due in 13 months. [facility] remote f/u . [facility]link remote monitor ordered and is being shipped to [facility]. Luana Decekr, DARCI Adithya Dominguez MD [facility] CARDIAC SERVICES PROC EDURES Final Result * DEVICE CHECK - IN OFFICE (03/07/2025 8:27 AM CDT) Anatomical Region Laterality Modality Other Narrative 03/30/2025 12:40 PM CDT Medtronic Micra2 AV Leadless Pacemaker. Dx; CHB, PAF. DOI 02/21/2025-Alberto. [facility] remote. Office VDD Pacemaker device interrogation performed by [employer] marketing development representative. Transmission attached. Stable electrode impedance, pacing and sensing thresholds. Battery voltage- 3.13V , 11.0 years remaining to ASHWINI. LAMINATOR PREFORMS- 92 %. Presenting rhythm- AM-LAMINATOR PREFORMS. Medication: Lopressor. No programming changes made to device settings. See scanned report. [facility] remote f/u . Office device f/u 04/18/2025. Result [facility] Adithya Dominguez MD CV CARDIAC SERVICES PROC EDURES Final Result * Cardiology Document Scan (02/22/2025 2:45 PM CDT) Anatomical Region Laterality Modality Other Result [facility] Kathy Lott MD CV CARDIAC SERVICES PROCEDU RES Final Result * SCAN - RADIOLOGY/IMAGING (02/22/2025) Anatomical Region Laterality Modality Other Kathy Lott MD Final Resul t * Cardiology Document Scan (02/21/2025 1:26 PM CDT) Anatomical Region Laterality Modality Other Result [facility] Kathy Lott MD CV CARDIAC SERVICES PROCEDU RES Final Result * Cardiology Document Scan (02/21/2025 1:19 PM CDT) Anatomical Region Laterality Modality Other Adithya Dominguez MD CARDIAC SERVICES PROC EDURES Final Result * Cardiology Document Scan (02/20/2025 9:16 AM CDT) Anatomical Region Laterality Modality Other Result [facility] Kathy Lott MD CARDIAC SERVICES PROCEDU RES Final Result * Cardiology Document Scan (02/19/2025 9:05 AM CDT) Anatomical Region Laterality Modality Other Kathy Lott MD CARDIAC SERVICES PROCEDU RES Final Result * [...] age 40, based on guidelines of the [place] [employer] (ACR Practice Parameter for the Performance of Screening and Diagnostic Mammography) and [place] [employer]. For women [...] * Hepatitis panel, acute (06/10/2019 10:11 AM NATURAL RESOURCES FACULTY MEMBER) HepBsAg NONREACT NONREACTIVE [facility] Comment: Siemens CentaurXP using SUSU (chemiluminescent immunoassay) technology. NONREACTIVE: IgM antibodies to Hepatitis B Surface antigen not detected. REACTIVE: IgM antibodies to Hepatitis B Surface antigen detected. Reactive results will be confirmed by neutralization testing. HBsAb qn <3.10 mIU/mL [facility] Comment: Siemens CentaurXP using SUSU (chemiluminescent immunoassay) technology. 9.99 IU/L or less.....NONREACTIVE: IgM antibodies to Hepatitis B Surface antibody are not detected. 10.00 IU/L or greater..REACTIVE: IgM antibodies to Hepatitis B Surface antibody are detected. Hep B core IgM NONREACT NONREACTIVE [facility] Comment: Siemens CentaurXP using SUSU (chemiluminescent immunoassay) technology. NONREACTIVE: IgM antibodies to Hepatitis B Core antigen not detected. EQUIVOCAL: IgM antibodies to Hepatitis B Core antigen may or may not be present. Obtain a new specimen and retest. REACTIVE: IgM antibodies to Hepatitis B Core antigen detected. Hep A IgM NONREACT NONREACTIVE [facility] Comment: Siemens CentaurXP using SUSU (chemiluminescent immunoassay) technology. NONREACTIVE: IgM antibodies to Hepatitis A not detected. This does not exclude possibility of exposure to Hepatitis A or early acute infection. EQUIVOCAL:IgM antibodies to Hepatitis A may or may not be present. Suggest recollection and retest. REACTIVE: Antibodies to Hepatitis A detected. Hep C Ab NONREACT NONREACTIVE [facility] Comment: Siemens CentaurXP using SUSU [...] real-time PCR method. 06/10/2019 10:1 1 AM NATURAL RESOURCES FACULTY MEMBER 06/10/2019 10:47 AM NATURAL RESOURCES FACULTY MEMBER Narrative Resulting Agency Comment IN Destiny Pereira MD LAB MICROBIOLOGY - GENERAL ORDERABLES Final Result [facility] [address] [place] [address], [facility] [phone] from Last 3 Months or Most Recently Relevant to Health Maintenance Insurance [facility] [facility] IDPA MEDICARE Advance Directives For more information, please contact: [phone] Documents on File Type Date Recorded Patient Profile Saw Setup Operator Expl anation ADVANCE DIRECTIVE 07/14/2020 6:58 AM * Full Code (Latest Code Status on File) Date Activated Date Inactivated Comments 07/05/2020 4:11 PM 07/12/2020 7:15 PM * Full Code Date Activated Date Inactivated Comments 06/28/2019 11:55 PM 07/06/2019 8:59 PM Care Teams Hospice Nurse Practitioner Relationship Specialty Start Date End Date Hernando Velasquez MD PCP - General Internal Medicine 01/07/22 Jose Manuel Gruber MD Fellow Orthopedic Surgery 07/06/19
--- OUTSIDE RECORDS SUMMARY | 2025-04-25 10:02 | XMS_ITS | Encounter Summary ---
Author Organization [facility] Facility Care Team Providers Care Spearer Name Role Phone Hernando Velasquez MD Primary Care Provider [phone] Jose Manuel Gruber MD Unavailable Bernardo Edwards MD Primary Care Provider [phone] Hernando Velasquez MD Primary Care Provider [phone] Bernardo Edwards MD Primary Care Provider [phone] Bernardo Edwards MD Primary Care Provider [phone] Hernando Velasquez MD Primary Care Provider [phone] Encounter Details Date Type Department Care Team (Latest Contact Info) Description 07/12/2016 Orders Only [facility] CLINCONV ProviderLucille MD [address] [place] [id number] Social History Tobacco Use Types Packs/Day [...] Comments SCAN - LABS 07/23/2016 12:00 AM RESOURCE AGENT documented in this encounter Results * SCAN - LABS (07/23/2016 12:00 AM RESOURCE AGENT) Narrative 07/23/2016 12:00 AM RESOURCE AGENT Ordered by an unspecified provider. us Historical Provider Final Res ult documented in this encounter Visit Diagnoses Not on filedocumented in this encounter Additional Health Concerns Infection Onset Date Last Indicated Resolved Time COVID19 Comment:Patient 20 days out and asymptomatic. 07/11/2020 Carly Roues 06/21/2020 06/21/2020 07/11/2020 4:[address] COVID: Recovered 07/11/2020 07/11/2020 11/08/2020 3:05 AM CDT documented as of this encounter Care Teams Spearer Relationship Specialty Start Date End Date Hernando Velasquez MD PCP - General 12/23/18 06/13/19 Bernardo Edwards MD [address] [place] [address] PCP - General 07/05/20 07/06/20 Hernando Velasquez MD PCP - General 07/07/20 07/07/20 Bernardo Edwards MD [address] [place] [address] PCP - General 07/08/20 01/06/22 Bernardo Edwards MD [address] [place] [address] PCP - General 06/14/19 07/04/20 Hernando Velasquez MD PCP - General Internal Medicine 01/07/22 Jose Manuel Gruber MD Fellow Orthopedic Surgery 07/06/19 documented as of this encounter
--- OUTSIDE RECORDS SUMMARY | 2025-04-25 10:02 | XMS_ITS | Encounter Summary ---
Author Organization [facility] Facility Care Team Providers Care White Sourer Name Role Phone Hernando Velasquez MD Primary Care Provider [phone] Jose Manuel Gruber MD Unavailable [phone] Bernardo Edwards MD Primary Care Provider [phone] Hernando Velasquez MD Primary Care Provider [phone] Bernardo Edwards MD Primary Care Provider [phone] Bernardo Edwards MD Primary Care Provider [phone] Hernando Velasquez MD Primary Care Provider [phone] Encounter Details Date Type Department Care Team (Latest Contact Info) Description 07/22/2016 Orders Only [facility] CLINCONV ProviderLucille MD [address] [place] [address] Social History Tobacco Use Types Packs/Day [...] Comments SCAN - LABS 07/23/2016 12:00 AM FAMILY LITERACY COORDINATOR documented in this encounter Results * SCAN - LABS (07/23/2016 12:00 AM FAMILY LITERACY COORDINATOR) Narrative 07/23/2016 12:00 AM FAMILY LITERACY COORDINATOR Ordered by an unspecified provider. us Historical [...] documented as of this encounter Care Teams White [place] Relationship Specialty Start Date End Date Hernando Velasquez MD PCP - General 12/23/18 06/13/19 Bernardo Edwards MD [address] [place] [address] PCP - General 07/05/20 07/06/20 Hernando Velasquez MD PCP - General 07/07/20 07/07/20 Bernardo Edwards MD [address] [place] [address] PCP - General 07/08/20 01/06/22 Bernardo Edwards MD [address] [place] [address] PCP - General 06/14/19 07/04/20 Hernando Velasquez MD PCP - General Internal Medicine 01/07/22 Jose Manuel Gruber MD Fellow Orthopedic Surgery 07/06/19 documented as of this encounter
--- OUTSIDE RECORDS SUMMARY | 2025-04-25 10:02 | XMS_ITS ---
Author Organization [facility] - [facility] Care Team Providers Care Amusement Ride Inspector Name Role Phone Feng Thompson Unavailable Unavailable Allergies and adverse reactions Code CodeSystem Substance Reaction Severity StartDate Concern Status 990764171 SNOMED CT Sulfa Antibiotics Moderate active LATEX Moderate 02/27/[address] Iodine I 131 Tositumomab Moderate 02/27/2021 active Fish Moderate 02/27/2021 active 3322 RXNORM Diazepam Moderate 02/27/[address] Barbiturates Moderate 02/27/2021 act jannette Care Team Name Role Address Phone Organization Dates Feng Thompson [place]CP [address] [place], [address], [place] (Office): : [facility] 02/28/2021 - 06/02/2021 Goals Section Goals Description Status Target Date I will express my feelings a bout the changes the virus has imposed and I will not experience any adverse side effects from visitation changes/restrictions; throughout the review period. Active I will express satisfaction with my daily routine through review date. Active 08/25/2021 Minimize/manage risk for falls Active 0 08/25/2021 No S/S of Infection through next review Active 08/25/2021 No adverse reaction to anti- anxiety therapy q week through review date Active 08/25/2021 No choking episodes through review date Active 08/25/2021 Resident will be clean, dry, well-groomed throug h review date Active 08/25/2021 Resident will be empowered t o make independent leisure choices daily and will be offered room visit check-ins several X weekly through next review. Active 08/25/2021 Resident will engage in acti vities that match their skills, abilities, and or interests every week x's 3 months Active Resident will experience no present/future problems related to abuse/mistreatment/violation Active 08/25/2021 Resident will have no advers e side effects from medications to control hyperlipidemia. Active 08/25/2021 Resident will receive servic e to prevent any further decline though next review Active 08/25/2021 Resident wishes will be honored thru next review Active 08/25/2021 Resident's spiritual needs will be met weekly th rough next review. Active 08/25/2021 The resident will not have a n interruption in normal activities due to pain through review date Active 08/25/2021 The resident will be free of adverse drug reactions through the review date Active 08/25/2021 The resident will be free of any discomfort or adverse side effects from pain medication through the review date Active 0 08/25/2021 The resident will be free of any discomfort or adverse side effects of antibiotic therapy through the review date Active 08/25/2021 The resident will be free of any discomfort or adverse side effects of diuretic therapy through the review date Active The resident will be free of any discomfort or adverse side effects of hypnotic use through the review date Active 2021 The resident will exhibit in dicators of depression, anxiety or sad mood less than daily by review date. Active 08/25/2021 The resident will have an ac ceptable level of comfort and have well-controlled phantom pain through the review date Active 0 08/25/2021 The resident will have no co mplications from rash through the review date Active 08/25/2021 The resident will have no co mplications from skin issues through the review date Active 08/25/2021 The resident will have no s/ sx of poor oxygen absorption through the review date Active 08/25/2021 The resident will maintain n ormal breathing pattern as evidenced by normal respirations, normal skin color, and regular respiratory rate/pattern through the review date Active 08/25/2021 The resident will not contract COVID-19 through next review Active 08/25/2021 The resident will remain cheri e from discomfort, complications or s/sx related to dx of GERD through review date Active 022 The resident will remain cheri e from s/sx of hypertension through the review date Active 08/25/2021 The resident will remain cheri e of s/sx or complications related to anemia through review date Active 08/25/2021 The resident will show impro vement to maximum potential with mobility and cognition by review date Active 08/25/2021 The resident's pneumonia fabiana l be resolved without complications by review date Active 08/25/2021 This resident will remain fr ee of potential adverse reactions from this medication through next review Active 08/25/2021 To prevent eliminate or mira viate moderate, severe pain symptoms QD through next review Active 08/25/2021 Will adjust to environment a nd participate in Therapeutic Rehab Program and return to prior living arrangements through review date Active 08/25/2021 Will have no signs or sympto ms of altered hydration through review date Active 08/25/2021 Immunizations Immunization Status Vaccine Details Vaccine Code CodeSystem Date Notes Influenza completed Influenza, high-dose, split virus, quadrivalent, injectable, preservative free lotNumber: [id number] expiry: 11/28/2021 Mfg: fluad quadrivalent Given 0.5 ml Left Deltoid intramuscularly 197 CVX created date: consent date: administe red date: Educated by Ashley TAFOYA on 05/12/2021 Resident monitored 15 minutes with no adverse side effects noted. TB 2 Step Mantoux Skin Test completed tuberculin skin test; unspecified formulation lotNumber: [id number] expiry: 08/28/2022 Given 0.1 ml Left Forearm intradermally Step 1 of Multi-step 98 CVX created date: consent date: administe red date: TB 2 Step Mantoux Skin Test completed tuberculin skin test; unspecified formulation lotNumber: [id number] expiry: 08/28/2022 Mfg: [employer] Given 0.1 ml Left Forearm intradermally Step 1 of Multi-step 98 CVX created date: 1 consent date: 1 administe red date: 1 Prevnar 13 normal pneumococcal conjugate vaccine, 13 valent 133 CVX created date: 1 consent date: 1 SARS-COV-2 (COVID-19) completed SARS-COV-2 (COVID-19) vaccine, mRNA, spike protein, LNP, preservative free, 100 mcg/0.5mL dose or 50 mcg/0.25mL dose Mfg: Pfizer Step 2 of Multi-step with next step required 207 CVX created date: 1 consent date: 1 administe red date: 1 SARS-COV-2 (COVID-19) completed SARS-COV-2 (COVID-19) vaccine, mRNA, spike protein, LNP, preservative free, 100 mcg/0.5mL dose or 50 mcg/0.25mL dose Mfg: Pfizer Step 1 of Multi-step with next step required 207 CVX created date: 1 administe red date: 0 Pt was vaccinated prior to facility admit SARS-COV-2 (COVID-19 Booster) completed SARS-COV-2 (COVID-19) vaccine, mRNA, spike protein, LNP, preservative free, 100 mcg/0.5mL dose or 50 mcg/0.25mL dose lotNumber: [id number] expiry: 06/26/2021 Mfg: [employer] Given 0.3 ml intramuscularly 207 CVX created date: 1 consent date: 1 administe red date: 1 Educated by CHANDRAKANT SAINZ on 05/29/2021 Mental Status Section Date Assessment Total Score Description 06/02/2021 BIMS 15 cognitively int act CAM 0 No delirium ind icated PHQ-9 08 mild depression 05/30/2021 BIMS 15 cognitively int act CAM 0 No delirium ind icated PHQ-9 08 mild depression Plan of Treatment Section Interventions Intervention Code Code System Display Name Proposed D ate Problems Problem # Description Date of onset Resolved Date Code CodeSystem Concern Status 1 ACQUIRED ABSENCE OF LEFT LEG BELOW KNEE 02/27/[address] active 2 ACUTE AND CHRONIC RESPIRATORY FAILURE, UNSPECIFIED WHETHER WITH HYPOXIA OR HYPERCAPNIA 02/27/[address] active 3 ALTERED MENTAL STATUS, UNSPECIFIED 02/27/[address] active 4 ANEMIA, UNSPECIFIED 02/27/[address] active 5 ANXIETY DISORDER, UNSPECIFIED 02/27/[address] active 6 BIPOLAR DISORDER, UNSPECIFIED 02/27/[address] active 7 DEPENDENCE ON SUPPLEMENTAL OXYGEN 02/27/[address] active 8 DISORDER OF KIDNEY AND URETER, UNSPECIFIED 02/27/[address] active 9 DYSPHAGIA, OROPHARYNGEAL PHASE 02/27/[address] active 10 ENCEPHALOPATHY, UNSPECIFIED 02/27/[address] active 11 ESSENTIAL (PRIMARY) HYPERTENSION 02/27/[address] active 12 GASTRO-ESOPHAGEAL REFLUX DISEASE WITHOUT ESOPHAGITIS 02/27/[address] active 13 GASTROPARESIS 02/27/[address] act jannette 14 HYPERLIPIDEMIA, UNSPECIFIED 02/27/[address] active 15 HYPO-OSMOLALITY AND HYPONATREMIA 02/27/[address] active 16 MAJOR DEPRESSIVE DISORDER, RECURRENT, UNSPECIFIED 02/27/[address] active 17 MORBID (SEVERE) OBESITY DUE TO EXCESS CALORIES 02/27/[address] active 18 OBSTRUCTIVE SLEEP APNEA (ADULT) (PEDIATRIC) 02/27/[address] active 19 OTHER ASTHMA 02/27/[address] acti ve 20 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 02/27/[address] active 21 PNEUMONIA, UNSPECIFIED ORGANISM 02/27/[address] active Reason for Referral No Reasons for Referral Entered Social History Social History Observation Description Start Date End Date Code Code System Current Smoking Status Tobacco smoking consumption unknown 555265821 SNOMED CT Sex Assigned At Female 1950 17345-6 [facility] Gender Identity Sexual Orientation Vital Signs Code Code System Vitals Name Values and Units Timing Information 23776-0 [facility] Pain Level Value=4.0 06/02/2021 9279-1 [facility] Respiratory Rate Value=21.0 Units=/m in 06/02/2021 8462-4 [facility] Blood Pressure-Diastolic Value=88 Un its=mmHg 06/02/2021 8480-6 [facility] Blood Pressure-Systolic Flpvm=224 Un its=mmHg 06/02/2021 8310-5 [facility] Body Temperature Value=97.9 Units= F 06/02/2021 53848-5 [facility] O2 % BldC Oximetry Value=97.0 Units= % 06/02/2021 8867-4 [facility] Heart rate Value=75.0 Units=/min 01/2021 38418-0 [facility] Weight Jcaev=505.8 Units=Lbs 02/2021 8302-2 [facility] Height Value=61.0 Units=Inches 02/28/2021
--- NOTE | 2025-04-25 10:07 | PC.NURSE ---
Pt to CT via stretcher on portable monitor at this time
--- NOTE | 2025-04-25 10:28 | ED.GENADULT ---
HPI - General Adult General Chief complaint: Syncope Stated complaint: syncope/lethargy/low BP History of Present Illness HPI narrative: 74-year-old female presents to the emergency department for evaluation after having a low blood pressure this morning at her care facility. Patient was noticed to have a blood pressure of 80 systolic and then repeat 1 up to 112 systolic. Patient was transported to the emergency department via EMS and EN route she received additional IV fluids. Upon arrival to the emergency department patient does complain of feeling tired. Patient is normally on 4 L of oxygen by nasal cannula and she is saturating well at her baseline oxygen. patient does complain of some burning with urination. Related Data Home Medications ?Medication ?Instructions ?Recorded ?Confirmed ?Last Taken ?Type fluticasone propionate 50 1 spray intranasal DAILY 09/09/19 03/27/25 03/27/25 History mcg/actuation nasal spray,suspension docusate sodium 100 mg tablet 200 mg PO BID Constipation 05/31/20 03/27/25 03/27/25 History amlodipine 10 mg tablet 10 mg PO DAILY 04/23/24 03/27/25 03/27/25 History bisacodyl 5 mg tablet,delayed 10 mg PO HS PRN Constipation 04/23/24 03/27/25 Unknown History release (Dulcolax (bisacodyl)) guaifenesin 1,200 mg tablet, 1,200 mg PO Q12H 04/23/24 03/27/25 03/27/25 History extended release 12 hr (Mucinex) memantine 5 mg tablet 5 mg PO BID 04/23/24 03/27/25 03/27/25 History ondansetron HCl 4 mg tablet 4 mg PO TID 04/23/24 03/27/25 03/27/25 History isosorbide mononitrate 30 mg 30 mg PO DAILY 08/06/24 03/27/25 03/27/25 History tablet,extended release 24 hr lidocaine 5 % topical patch 2 patch topical HS 08/06/24 03/27/25 03/26/25 History (Lidoderm) magnesium hydroxide 400 mg/5 mL 30 ml PO DAILY PRN constipation 08/06/24 03/27/25 Unknown History oral suspension (Gentle Laxative (magnesium hydroxide)) atorvastatin 10 mg tablet (Lipitor) 10 mg PO HS 01/18/25 03/27/25 03/26/25 History buspirone 10 mg tablet 10 mg PO TID 01/18/25 03/27/25 03/27/25 History clonazepam 0.5 mg tablet 0.5 mg PO Q12H 01/18/25 03/27/25 03/27/25 History famciclovir 250 mg tablet 250 mg PO Q12H 01/18/25 03/27/25 03/27/25 History magnesium citrate 300 ml PO DAILY PRN constipation 01/18/25 03/27/25 Unknown History primidone 50 mg tablet See Rx Instructions .Route .COMPLEX 01/18/25 03/27/25 03/27/25 History sennosides 8.6 mg-docusate sodium 2 tab-cap PO BID 01/18/25 03/27/25 03/27/25 History 50 mg tablet (Senna Plus) spironolactone 25 mg tablet 25 mg PO DAILY 01/18/25 03/27/25 03/27/25 History famotidine 10 mg tablet (Heartburn 10 mg PO DAILY 02/08/25 03/27/25 03/27/25 History Relief (famotidine)) tizanidine 2 mg tablet 2 mg PO Q12H 02/08/25 03/27/25 03/27/25 History polyethylene glycol 3350 17 17 g PO DAILY 02/19/25 03/27/25 03/27/25 History gram/dose oral powder polyvinyl alcohol 1.4 % eye drops 2 drp EACH EYE BID 02/19/25 03/27/25 03/27/25 History (Artificial Tears (polyvinyl alcohol)) sodium chloride 1,000 mg soluble 1,000 mg PO BID 02/19/25 03/27/25 03/27/25 History tablet venlafaxine 37.5 mg 37.5 mg PO DAILY 03/27/25 03/27/25 03/27/25 History capsule,extended release 24 hr (Effexor XR) Allergies Allergy/AdvReac Type Severity Reaction Status Date / Time Fish Containing Products Allergy Severe Dyspnea / Verified 04/25/25:25 SOB Iodinated Contrast Media Allergy Intermediate HIVES, RED Verified 04/25/25 09:25 FACE iodine Allergy Unknown Unknown Verified 04/25/25:25 Barbiturates Allergy Unknown Verified 04/25/25: bupivacaine Allergy Unknown Verified 04/25/25 09:25 diazepam (From Valium) Allergy Unknown Verified 04/25/25 09:25 latex Allergy Unknown Verified 04/25/25 09:25 menthol Allergy Unknown Verified 04/25/25 09:25 Sulfa (Sulfonamide Allergy Unknown Verified 04/25/25 09:25 Antibiotics) thiopental (From Pentothal) Allergy Unknown Verified 04/25/25 09:25 wool Allergy Unknown Verified 04/25/25 09:25 Review of Systems Review of Systems: All systems reviewed & are unremarkable except as noted in HPI and below PMFSH Past Medical History Medical History History of atrial fibrillation Failure to thrive CVA (cerebral vascular accident) Chronic anticoagulation Kidney stone Chronic anemia Chronic respiratory failure with hypoxia, on home oxygen therapy Bipolar disorder Gastroesophageal reflux disease Hyperlipidemia Hypertension Obstructive sleep apnea intolerant to CPAP Left tibial fracture Chronic hyponatremia Shingles Anxiety Depression Gastroparesis Diverticulitis Asthma Epilepsy no longer on medication Seasonal allergies Surgical History Surgical History History of left above knee amputation History of right shoulder replacement History of cholecystectomy History of left knee replacement History of hysterectomy History of open reduction and internal fixation (ORIF) procedure Left tibia and right ankle. History of appendectomy History of tonsillectomy Family History Family History Mother Suicide Depression Heart disease Hypertension Heart failure Sibling Suicide Father Diabetes mellitus Emphysema lung Social History Social History Social History: Surrogate medical decision maker: Martina Rodney, daughter. Code status: Full code. Smoking status: Never smoker Second hand tobacco smoke exposure: No Alcohol intake: former Substance use: never Substance use type: does not use Do You Feel Safe in your Home?: Yes Lack of Transportation: No Lack of Food: Never True Current Housing: I Have Housing Concerned About Future Housing: No Difficulty Paying Gas/Electric Bills: No Difficulty Paying for Meds: No Currently Unemployed: No Education: High School Diploma/GED Difficulty w/ Childcare or Family Care: No Living arrangements: [facility] [place] Occupation/Education: retired Spiritual care concerns: No Agree to blood products: No Exam Narrative: APPEARANCE: Tired appearing HEAD: normocephalic, atraumatic. EYES: PERRLA/EOMI, conjunctivae clear. NOSE: Normal no drainage EARS:TMS clear with good light reflex. THROAT: Pharynx clear, no exudate. NECK: Supple. No adenopathy, no masses. RESPIRATORY: Airway patent, respirations nonlabored. Clear to auscultation bilaterally, no rales, rhonchi, wheezing. CARDIOVASCULAR: Regular rate and rhythm without murmurs rubs or gallops. ABDOMINAL: Soft, nontender, nondistended, normal bowel sounds MUSCULOSKELETAL: Left lower extremity BKA NEURO: Alert. Cranial nerves II through XII intact. Good gait. Good coordination SKIN: Warm, dry. Normal Color Course Vital Signs Vital signs: Vital Signs Temperature 97.7 F 04/25/25 09:13 Pulse Rate 70 04/25/25 09:13 Respiratory Rate 13 04/25/25 09:13 Blood Pressure 95/40 L 04/25/25 09:13 Pulse Oximetry 100 04/25/25 09:13 Oxygen Delivery Nasal Cannula 04/25/25 09:13 Oxygen Flow Rate 4 04/25/25 09:13 Temperature 97.7 F 04/25/25 09:13 Pulse Rate 76 04/25/25 14:45 Respiratory Rate 14 04/25/25 14:45 Blood Pressure 136/61 04/25/25 14:45 Pulse Oximetry 100 04/25/25 14:45 Oxygen Delivery Nasal Cannula 04/25/25 09:22 Oxygen Flow Rate 4 04/25/25 09:22 Medical Decision Making [facility] Narrative Medical decision making narrative: 74-year-old female presents to the emergency department for evaluation for low blood pressure and burning with urination. Patient is currently afebrile with no leukocytosis hemoglobin of 8.2 which is similar to her baseline. INR of 1.1. Patient has a creatinine of 0.59 with no other significant acute abnormalities on her CMP. UA was negative for infection. Patient was negative for influenza RSV and for COVID. CT abdomen pelvis shows no acute intra-abdominal pathology. Chest x-ray shows no acute cardiopulmonary abnormality. Head CT was negative. patient was treated with a L of normal saline L of lactated Ringer's. On re-evaluation patient states she does feel improved and feels back to her baseline. Patient's blood pressure is 136/56 and patient denies any complaint. Differential Diagnosis Differential Diagnosis: UTI, COVID, RSV, influenza, dehydration, colitis, diverticulitis, appendicitis, cholecystitis, pneumonia, subdural hematoma, subarachnoid hemorrhage Vital Signs Vital Signs: Vital Signs Temperature 97.7 F 04/25/25 09:13 Pulse Rate 70 04/25/25 09:13 Respiratory Rate 13 04/25/25 09:13 Blood Pressure 95/40 L 04/25/25 09:13 Pulse Oximetry 100 04/25/25 09:13 Oxygen Delivery Nasal Cannula 04/25/25 09:13 Oxygen Flow Rate 4 04/25/25 09:13 Temperature 97.7 F 04/25/25 09:13 Pulse Rate 76 04/25/25 14:45 Respiratory Rate 14 04/25/25 14:45 Blood Pressure 136/61 04/25/25 14:45 Pulse Oximetry 100 04/25/25 14:45 Oxygen Delivery Nasal Cannula 04/25/25 09:22 Oxygen Flow Rate 4 04/25/25 09:22 Lab Data Lab results reviewed: Yes I reviewed the patient's lab results. 04/25/25 09:29 04/25/25 09:29 Labs: Lab Results 04/25/25 04/25/25 04/25/25 Range/Units 09:29 10:13 11:05 WBC 6.5 (4.5-10.0) K/mm3 RBC 3.15 L (4.2-5.4) M/mm3 Hgb 8.2 L (12.0-15.0) g/dL Hct 26.8 L (37.0-47.0) % MCV 85.1 (80-100) fl MCH 26.0 (26-34) pg MCHC 30.6 L (32-36) g/dl RDW 14.6 H (11.5-14.5) % Plt Count 246 (150-375) k/mm3 MPV 10.9 H (7.4-10.4) fl Immature Gran % (Auto) 0.3 (0-0.5) % Neut % (Auto) 42.6 L (45.5-73.1) % Lymph % (Auto) 28.0 (18.3-44.2) % Lake % (Auto) 12.7 H (2.6-8.5) % Eos % (Auto) 15.6 H (0-4.4) % Baso % (Auto) 0.8 (0.2-1.2) % Lymph # (Auto) 1.81 (0.9-3.2) K/mm3 Lake # (Auto) 0.8 H (0.1-0.6) K/mm3 Eos # (Auto) 1.0 H (0-0.3) K/mm3 Baso # (Auto) 0.1 (0.0-0.1) K/mm3 Abs Immat Gran (auto) 0.02 (0.00-0.031) K/mm3 Absolute Neuts (auto) 2.8 (1.3-6.7) K/mm3 Absolute Nucleated RBC 0.000 (0.0-0.012) K/mm3 Nucleated RBC % 0.0 (0.0-0.2) % PT 14.3 (11.1-14.7) Seconds INR 1.1 APTT 33.3 (22.3-36.8) Seconds Sodium 128 L (137-145) mmol/L Potassium 4.5 (3.4-5.0) mmol/L Chloride 96 L (98-107) mmol/L Carbon Dioxide 27 (22-30) mmol/L Anion Gap 5 (4-12) mmol/L BUN 21 H (7-17) mg/dL Creatinine 0.59 L (0.7-1.0) mg/dL Estim Creat Clear Calc 76 ml/min Estimated GFR > 60 (59 - ) Glucose 103 (65-110) mg/dL Lactic Acid 0.9 (0.7-2.0) mmol/L Calcium 8.4 (8.4-10.2) mg/dL Total Bilirubin 0.2 (0.2-1.3) mg/dL AST 21 (14-36) U/L ALT 19 (6-35) U/L Alkaline Phosphatase 67 (38-126) U/L Total Protein 5.9 L (6.3-8.2) g/dL Albumin 3.4 L (3.5-5.1) g/dL Urine Color Yellow (Yellow) Urine Appearance Clear (Clear) Urine pH 6.0 (5.0-9.0) Ur Specific [place] 1.008 (1.001-1.035) Urine Protein Negative (Negative) mg/dL Urine Glucose (UA) Negative (Negative) mg/dL Urine Ketones Negative (Negative) mg/dL Ur Blood (Man) Negative (Negative) Urine Nitrate Negative (Negative) Urine Bilirubin Negative (Negative) Urine Urobilinogen 0.2 (<2.0) mg/dL Leukocyte Esterase Rfl Negative (Negative) LEEANNE/UL Influenza A (RT-PCR) Negative (Negative) Influenza B (RT-PCR) Negative (Negative) RSV (RT-PCR) Negative (Negative) SARS-CoV-2 RNA (RT-PCR) Negative (Negative) Imaging Data Radiologist's impression: Impressions Head CT 04/25/25 09:46 Impression: 1.No acute intracranial abnormality. Chest X-Ray 04/25/25 09:49 Impression: No acute cardiopulmonary abnormality. Abdomen/Pelvis CT 04/25/25 10:19 IMPRESSION: 1. No acute findings. 2. Chronic findings as above. Discharge Plan Discharge Clinical Impression: Weakness generalized Patient Disposition: NH Correction/Asst Living Condition: Stable Instructions: Antibiotic Form, Hypotension (ED) Additional Instructions: Have close follow-up with your primary care physician. if you have any worsening symptoms please call or return to the emergency department. Patient Language: Austrian Prescriptions: No Action docusate sodium 100 mg Tablet 200 mg PO BID isosorbide mononitrate 30 mg tablet extended release 24 hr 30 mg PO DAILY lidocaine [Lidoderm] 5 % adhesive patch,medicated 2 patch topical HS Patient Comments: left shoulder Rx Instructions: leave on most painful area for up to 12 hrs magnesium hydroxide [Gentle Laxative (mag hydrox)] 400 mg/5 mL suspension 30 ml PO DAILY PRN (Reason: constipation) Xarelto 20 mg Tablet 20 mg PO DAILY@1700 Qty: 60 0RF oxycodone-acetaminophen 5-325 mg Tablet 1 tablet PO Q8H PRN (Reason: Pain Rated 7-10) Qty: 10 0RF irbesartan 150 mg Tablet 300 mg PO QAM Qty: 30 0RF primidone 50 mg tablet See Rx Instructions .ROUTE .COMPLEX Rx Instructions: 200 MG PO BID; spironolactone 25 mg tablet 25 mg PO DAILY buspirone 10 mg tablet 10 mg PO TID clonazepam 0.5 mg tablet 0.5 mg PO Q12H magnesium citrate Solution 300 ml PO DAILY PRN (Reason: constipation) famciclovir 250 mg tablet 250 mg PO Q12H atorvastatin [Lipitor] 10 mg tablet 10 mg PO HS sennosides-docusate sodium [Senna Plus] 8.6-50 mg tablet 2 tab-cap PO BID tizanidine 2 mg tablet 2 mg PO Q12H famotidine [Heartburn Relief (famotidine)] 10 mg Tablet 10 mg PO DAILY ipratropium-albuterol 0.5 mg-3 mg(2.5 mg base)/3 mL Solution For Nebulization 3 ml inhalation Q6HRT PRN (Reason: Wheezing) Qty: 30 0RF fluticasone propionate 50 mcg/actuation Sargeant,Suspension 1 spray INTRANASAL DAILY ondansetron HCl 4 mg tablet 4 mg PO TID amlodipine 10 mg tablet 10 mg PO DAILY bisacodyl [Dulcolax (bisacodyl)] 5 mg Tablet,Delayed Release (Dr/Ec) 10 mg PO HS PRN (Reason: Constipation) memantine 5 mg tablet 5 mg PO BID guaifenesin [Mucinex] 1,200 mg Tablet Extended Release 12hr 1,200 mg PO Q12H pregabalin [Lyrica] 150 mg Capsule 150 mg PO BID Qty: 14 0RF polyethylene glycol 3350 17 gram/dose powder 17 g PO DAILY polyvinyl alcohol [Artificial Tears (polyvin alc)] 1.4 % drops 2 drp EACH EYE BID sodium chloride 1,000 mg tablet,soluble 1,000 mg PO BID furosemide 20 mg Tablet 20 mg PO BID 30 Days Qty: 60 0RF venlafaxine [Effexor XR] 37.5 mg capsule,extended release 24hr 37.5 mg PO DAILY hydralazine 10 mg tablet 25 mg PO Q8H Qty: 30 0RF Follow-up/Referrals: UNKNOWN,DOCTOR [Primary Care Provider]
[2025-04-25 10:56] LABS: Influenza A QL RT-PCR Negative (Negative); Influenza B QL RT-PCR Negative (Negative); RSV RNA, RT-PCR Negative (Negative); SARS-CoV-2 RNA PCR Negative (Negative)
[2025-04-25 11:10] LABS: Add Urine Microscopic? NO; Appearance Urine Clear (Clear); Glucose Urine UA Negative (Negative); Leukocyte Esterase Ur Negative LEU/UL (Negative); Nitrate Urine Negative (Negative); Specific Grav Ur 1.008 (1.001-1.035)
--- NOTE | 2025-04-25 13:30 | PC.NURSE ---
Report called to Lucia BEJARANO at [facility], all questions answered
--- NOTE | 2025-04-25 15:19 | PC.NURSE ---
Report given to Sally BEJARANO, all questions answered
== END 2025-04-25 15:37 ==
PROVIDERS: Emergency Provider Emergency Medicine
DX: R53.1 Weakness (principal); Z20.822 Contact with and (suspected) exposure to COVID-19; I48.91 Unspecified atrial fibrillation; I10 Essential (primary) hypertension; J96.11 Chronic respiratory failure with hypoxia; Z99.81 Dependence on supplemental oxygen; J45.909 Unspecified asthma, uncomplicated; E87.1 Hypo-osmolality and hyponatremia; E78.5 Hyperlipidemia, unspecified; D64.9 Anemia, unspecified; G47.33 Obstructive sleep apnea (adult) (pediatric); K21.9 Gastro-esophageal reflux disease without esophagitis; K31.84 Gastroparesis; Z87.442 Personal history of urinary calculi; F41.9 Anxiety disorder, unspecified; F31.9 Bipolar disorder, unspecified; Z96.611 Presence of right artificial shoulder joint; Z86.73 Personal history of transient ischemic attack (TIA), and cerebral infarction without residual deficits; Z89.612 Acquired absence of left leg above knee; Z90.49 Acquired absence of other specified parts of digestive tract; Z90.710 Acquired absence of both cervix and uterus; Z79.01 Long term (current) use of anticoagulants; Z79.899 Other long term (current) drug therapy; I51.7 Cardiomegaly; R94.31 Abnormal electrocardiogram [ECG] [EKG]
CPT/HCPCS: 36415; 70450; 71045; 74176; 80053; 81003; 83605; 85025; 85610; 85730; 87637; 93005; 96360; 99284; J7120

== ENCOUNTER 2025-06-25 10:02 | Emergency (ER) | payer MEDICARE, MEDICAID, SELFPAY ==
--- OUTSIDE RECORDS SUMMARY | 2025-05-09 04:56 | XMS_ITS | Continuity of Care Document ---
Author Organization [facility] Address [address] [place] [address] Phone Care Team Providers Care Steward/Stewardess Banquet Name Role Phone Hernando Velasquez MD Unavailable [...] tablet twice daily as needed - Active [place] Nasal 0.65 % spray aerosol 2 sprays [...] F IRST INJ TDAP INTRAMUSCULAR USE OFFICE [id number] SYST BP >= 140 MM HG6 IT [...] Preservative And A ntibiotic Free IM OFFICE [id number] SYST BP >= 140 MM HG6 IT DIAST BP < 80 MM HG ROUTINE VENIPUNCTURE IL CBC, INC PLATELETS AND DIFFERENTIAL COMPREHEN METABOLIC PANEL CMP 3 LIPID PANEL Pt inelig neg scrn depres FALL RISK ASSESSMENT DOC'D PRES/ABSN URINE INCON ASSESS PREVENTATIVE-EST: 65 & OVER SYST BP >= 140 MM HG6 IT DIAST BP < 80 MM HG ROUTINE VENIPUNCTURE IL OFFICE [id number]-[id number] SYST BP >= 140 MM HG6 IT DIAST BP 80-89 MM HG BASIC METABOLIC PANEL(BMP) ROUTINE VENIPUNCTURE BASIC METABOLIC PANEL(BMP) ROUTINE VENIPUNCTURE BASIC METABOLIC PANEL(BMP) ROUTINE VENIPUNCTURE IMMUN ADMIN (INC PERCUTANEOUS) SINGLE, F IRST INJ Flu Vac, quad (RIV4), Preservative And A ntibiotic Free IM OFFICE [id number] BODY MASS INDEX DOCD SYST BP >= 140 MM HG6 IT DIAST BP >= 90 MM HG BASIC METABOLIC PANEL(BMP) ROUTINE VENIPUNCTURE FORM CHARGE SYST BP >= 140 MM HG6 IT DIAST BP 80-89 MM HG OFFICE [id number] BODY MASS INDEX DOCD SYST BP >= 140 MM HG6 IT DIAST BP 80-89 MM HG PREVENTATIVE-EST: 65 & OVER BODY MASS INDEX DOCD SYST BP >= 140 MM HG6 IT DIAST BP 80-89 MM HG CBC, INC PLATELETS AND DIFFERENTIAL COMPREHEN METABOLIC PANEL CMP HEMOGLOBIN A1C HGA1C, GLYCO LIPID PANEL MICROALBUMIN, QN (URINE) CREATININE, (U-R) ROUTINE VENIPUNCTURE OFFICE [id number] CBC, INC PLATELETS AND DIFFERENTIAL COMPREHEN METABOLIC PANEL CMP 1 HEMOGLOBIN A1C HGA1C, GLYCO ROUTINE VENIPUNCTURE OFFICE [id number]-[id number] DSCHRG MED/CURRENT MED MERGE OFFICE [id number] BASIC METABOLIC PANEL(BMP) ROUTINE VENIPUNCTURE OFFICE XCHFZ-GZR-[id number] BASIC METABOLIC PANEL(BMP) CREATININE, (U-R) URINALYSIS, DIPSTICK (UA) - Office Lab O ROUTINE VENIPUNCTURE BASIC METABOLIC PANEL(BMP) ROUTINE VENIPUNCTURE Admin influenza virus vac Flu Vac, quad (RIV4), Preservative And A ntibiotic Free IM BASIC METABOLIC PANEL(BMP) ROUTINE VENIPUNCTURE OFFICE [id number]-[id number] BASIC METABOLIC PANEL(BMP) DRUG TEST (ANY NUMBER OF DRUG CLASSES) A ROUTINE VENIPUNCTURE Advance Directives Directive Yes / No Effective Date File Name No Information Encounters Encounter Description Practice Location Reason(s) For Visit Diagnoses Date Provider Providers Copied on Encounter [facility], [address], [place], [place], [address] , [place] tel: [phone] [facility] [place] [employer] No Information 5 English Villagomez. [address] [place], [address], [place]. [phone] [facility], [address], [place], [place], [address] , [place] tel: [phone] [facility] [place] No Information 5 English Villagomez. [address] [place], [address], [place]. tel:[phone] [facility], [address], [place], [place], [address] , [place] tel: [phone] [facility] [place] No Information 4 Dejesus Kay. [address] [place], [place], [address], [place]. tel:[phone] [facility], [address], [place], [place], [address] , [place] tel: [phone] [facility] [place] No Information 4 Dejesus Kay. [address] [place], [place], [address], [place]. tel: [phone] [facility], [address], [place], [place], [address] , [place] tel: [phone] [facility] [place] No Information 4 Cymro Hernando. [address] [place], [address], [place]. tel:[phone] [facility] [place], [address], [place], [place], [address] , [place] tel: [phone] [facility] [place] No Information 4 Cymro Hernando. [address] [place], [place], [address], [place]. tel:[phone] [facility], [address], [place], [place], [address] , [place] tel: [phone] [facility] [place] No Information 4 Cymro Hernando. [address] [place], [address], [place]. tel:[phone] [facility] [place], [address], [place], [place], [address] , [place] tel: [phone] [facility] [place] No Information 4 Cymro Hernando. [address] [place], [address], [place]. tel:[phone] [facility] [place], [address], [place], [place], [address] , [place] tel:[phone] [facility] [place] No Information 4 Cymro Hernando. [address] [place], [address], [place]. tel:[phone] [facility] [place], [address], [place], [place], [address] , [place] tel: [phone] [facility] [place] No Information 4 Dejesus Kay. [address] [place], [place], [address], [place]. tel:[phone] [facility] [place], [address], [place], [place], [address] , [place] tel: [phone] [facility] [place] No Information 4 Cymro Hernando. [address] [place], [place], [address], [place]. tel:[phone] [facility] [place], [address], [place], [place], [address] , [place] tel: [phone] [facility] [place] No Information 4 Cymro Hernando. [address] [place], [address], [place]. tel:[phone] [facility] [place], [address], [place], [place], [address] , [place] tel:[phone] [facility] [place] No Information 4 Cymro Hernando. [address] [place], [place], [address], [place]. tel:[phone] [facility] [place], [address], [place], [place], [address] , [place] tel:[phone] [facility] [place] No Information 4 Dixonnasima Dixon. [address] [place], [address], [place]. tel:[phone] [facility] [place], [address], [place], [place], [address] , [place] tel:[phone] [facility] [place] No Information 4 Cymro Hernando. [address] [place], [place], [address], [place]. tel:[phone] [facility], [address], [place], [place], [address] , [place] tel: [phone] [facility] No Information 4 Ben [place] [address], [place], [place], [address], [place]. tel:[phone] Referring Provider: Hernando Velasquez, [address] [place], [address] . tel:[phone] OFFICE OGDII-DGR-SR PANDED [facility], [address], [place], [place], [address] , [place] tel: [phone] [facility] hyponatremmia (chief complaint) Hyponatremia 4 English Villagomez. [address] [place], [place], [address], [place]. tel:[phone] Referring Provider: Hernando Velasquez, [address] [place], [address] . tel:[phone] [facility], [address], [place], [place], [address] , [place] tel: [phone] [facility] No Information 4 Cymro Hernando. [address] [place], [place], [address], [place]. tel:[phone] [facility], [address], [place], [place], [address] , [place] tel: [phone] [facility] No Information 4 Cymro Hernando. [address] [place], [place], [address], [place]. tel:[phone] [facility], [address], [place], [place], [address] , [place] tel: [phone] [facility] Encounter for general adult medical examination without abnormal findingsEssen tial (primary) hypertensionH yperlipidemia , unspecified Oct- 4 Ben Copeland[address], [place], [place], [address], . tel:[phone] Referring Provider: Hernando Velasquez, [place], [address] . tel:[phone] PREVENTATIVE -EST: 65 & OVER [facility], [address], [place], [place], [address] , [place] tel: [phone] [facility] PX (chief complaint) Encounter for general adult medical examination without abnormal findingsEssen tial hypertensionC OPD with asthmaChronic GERDGAD (generalized anxiety disorder)Cere bral atrophyHistor y of above-knee amputation of left lower extremityEnco unter for screening for malignant neoplasm of colon 4 English Villagomez. [address] [place], [place], [address], [place]. tel:[phone] Referring Provider: Hernando Velasquez, [place], [address] . tel:[phone] [facility] [place], [address], [place], [place], [address] , [place] tel:[phone] [facility] No Information 4 English Villagomez. [address] [place], [place], [address], [place]. tel:[phone] [facility], [address], [place], [place], [address] , [place] tel:[phone] [facility] No Information 3 Ben [address], [place], [place], [address], [place]. tel:[phone] Referring Provider: Hernando Velasquez, [address] [place], [address] . tel:[phone] OFFICE RRRJG-EQG-SV TAILED [facility], [address], [place], [place], [address] , [place] tel: [phone] [facility] chronic conditions (chief complaint) COPD with asthmaGAD (generalized anxiety disorder)[facility] hypertensionC hronic GERD 3 English Villagomez. [address] [place], [place], [address], [place]. tel:[phone] Referring Provider: Hernando Velasquez, [address] [place], [address] . tel:[phone] [facility], [address], [place], [place], [address] , [place] tel: [phone] [facility] Vitamin D deficiency 3 English Villagomez. [address] [place], [place], [address], [place]. tel:[phone] [facility], [address], [place], [place], [address] , [place] tel: [phone] [facility] No Information 3 Ben Price. [address] , [place], [place], [address], [place]. [phone] Referring Provider: [place], [address] . tel:[phone] PREVENTATIVE -EST: 65 & OVER [facility], [address], [place], [place], [address] , [place] tel: [phone] [facility] px (chief complaint) History of above-knee amputation of left lower extremityChro kamryn hypoxemic respiratory failureEssent ial hypertensionC erebral atrophyChroni c GERDCOPD with asthmaEncount er for general adult medical examination without abnormal findingsEncou nter for screening mammogram for malignant neoplasm of breast 3 English Villagomez. [address] [place], [place], [address], [place]. tel:[phone] Referring Provider: [place], [address] . tel:[phone] [facility], [address], [place], [place], [address] , [place] tel: [phone] [facility] Herpesviral infection of urogenital system 3 English Villagomez. [address] [place], [place], [address], [place]. tel:[phone] [facility] [place], [address], [place], [place], [address] , [place] tel: [phone] [facility] [place] No Information 3 English Villagomez. [address] [place], [place], [address], [place]. tel:[phone] [facility] [place], [address], [place], [place], [address] , [place] tel: [phone] [facility] [place] Follow-up exam 3 English Villagomez. [address] [place], [place], [address], [place]. tel:[phone] OFFICE BTKZS-URP-DR PANDED [facility], [address], [place], [place], [address] , tel: [phone] [place] Nocturnal leg cramps 2 Cymro Hernando. [address] [place], [address], [place]. tel:[phone] Referring Provider: Hernando Velasquez [address] [place] [address], [address] . tel:[phone] [facility], [address], [place], [place], [address] , tel: [phone] [place] Hyponatremia May- 2 Cymro Hernando. [address] [place], [address], [place]. tel:[phone] Referring Provider: [place], [address] . tel:[phone] [facility], [address], [place], [place], [address] , [place] tel: [phone] [place] Low sodium levels 2 English Villagomez. [address] [place], [address], [place]. [phone] Referring Provider: [place], [address] . tel:[phone] [facility], [address], [place], [place], [address] , tel:[phone] [facility] Essential hypertension 2 Cymro Hernando. [address] [place], [place], [address], [place]. tel:[phone] Referring Provider: [place], [address] . tel:[phone] OFFICE AFFWO-BRE-TH [facility], [address], [place], [place], [address] , tel:[phone] [facility] Chronic Conditions (chief complaint) Body mass index [BMI] 36.0-36.9, adultEssentia l (primary) hypertensionM igraine, unspecified, not intractable, without status migrainosusMo rbid (severe) obesity due to excess caloriesAorti c atheroscleros is Mar- 2 Cymro Hernando. [address] [place], [address], . tel:[phone] Referring Provider: [place], [address] . tel:[phone] [facility], [address], [place], [place], [address] , tel:[phone] Aaron Cough, persistent 2 Cymro Hernando. [address] [place], [address], [place]. tel:[phone] [facility], [address], [place], [place], [address] , tel: [phone] [facility] No Information 2 Cymro Hernando. [address] [place], [address], [place]. tel:[phone] [facility], [address], [place], [place], [address] , tel:[phone] [facility] No Information 2 Cymro Hernando. [address] [place], [address], [place]. tel:[phone] Referring Provider: [place], [address] . tel:[phone] OFFICE RRVZJ-TGD-BO PANDED [facility], [address], [place], [place], [address] , [place] tel: [phone] [facility] Discuss Power chair (chief complaint) History of above-knee amputation of left lower extremityChro kamryn hypoxemic respiratory failure 2 English Villagomez. [address] [place], [address], [place]. tel:[phone] Referring Provider: [place], [address] . [phone] [facility], [address], [place], [place], [address] , [place] tel: [phone] [place] Encounter for screening for malignant neoplasm of colonEncounte r for screening for malignant neoplasm of colon 2 English Villagomez. [address] [place], [address], [place]. tel:[phone] PREVENTATIVE -EST: 65 & OVER [facility], [address], [place], [place], [address] , [place] tel: [phone] [place] PX (chief complaint) Annual physical examChronic hypoxemic respiratory failureEssent ial (primary) hypertensionH istory of above-knee amputation of left lower extremityChro kamryn GERDCerebral atrophyCOPD with asthmaLow back pain, unspecifiedBo dy mass index [BMI] 35.0-35.9, adultDecrease d pulseMixed hyperlipidemi aHyperglycemi a Sep- 2 English Villagomez. [address] [place], [address], [place]. tel:[phone] Referring Provider: [place], [address] . tel:[phone] OFFICE BPLQE-DGQ-FI TAILED [facility], [address], [place], [place], [address] , [place] tel: [phone] [facility] and correction f/u (chief complaint) Body mass index [BMI] 33.0-33.9, adultChronic hypoxemic respiratory failureHistor y of above-knee amputation of left lower extremityChro kamryn GERDCerebral atrophyEssent ial (primary) hypertensionS tage 3 chronic kidney disease, unspecified whether stage 3a or 3b CKDCOPD with asthmaHyperli pidemia, unspecified hyperlipidemi a typeAortic atheroscleros isOther chronic painGAD (generalized anxiety disorder)Hype rglycemiaPorp hyria 1 English Villagomez. [address] [place], [place], [address], . tel:[phone] Referring Provider: Hernando Velasquez, [address] [place], [address] . tel:[phone] [facility], [address], [place], [place], [address] , tel: [phone] [facility] No Information 1 English Villagomez. [address] [place], [place], [address], . 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 [address] [place], [place], [address], . tel:[phone] Referring Provider: Hernando Velasquez, [address] [place], [address] . tel:[phone] [facility], [address], [place], [place], [address] , tel: [phone] Aaron Breast calcification s 0 English Villagomez. [address] [place], [place], [address], . tel:[phone] [facility], [address], [place], [place], [address] , tel: [phone] [place] No Information 9 English Villagomez. [address] [place], [place], [address], [place]. tel:[phone] Referring Provider: Hernando Velasquez, [address] [place], [address] . tel:[phone] OFFICE QNRPZ-XWY-RN TAILED [facility], [address], [place], [place], [address] , [place] tel: [phone] [facility] f/u (chief complaint) Syncope, unspecified syncope typeChronic low back pain, unspecified back pain laterality, unspecified whether sciatica presentOther chronic painAKI (acute kidney injury)Hyperk alemiaBody mass index (BMI) 40.0-44.9, adultMorbid (severe) obesity due to excess calories 9 Dejesus Kay. [address] [place], [place], [address], [place]. tel:[phone] Referring Provider: Hernando Velasquez, [address] [place], [address] . tel:[phone] OFFICE IXNSI-DKY-ED PANDED [facility], [address], [place], [place], [address] , [place] tel: [phone] Aaron 1 week follow up (chief complaint) LUAN (acute kidney injury) 9 English Villagomez. [address] [place], [place], [address], [place]. tel:[phone] Referring Provider: Hernando Velasquez, [address] [place], [address] . tel:[phone] [facility], [address], [place], [place], [address] , [place] tel: [phone] Aaron No Information 9 English Villagomez. [address] [place], [place], [address], [place]. tel:[phone] [facility], [address], [place], [place], [address] , [place] tel: [phone] [place] Flu shot (chief complaint) Essential hypertensionE ncounter for immunization 9 English Villagomez. [address] [place], [address], [place]. tel:[phone] Referring Provider: Hernando Velasquez, [place], [address] . tel:[phone] [facility], [address], [place], [place], [address] , tel: [phone] Aaron Essential hypertension 9 English Villagomez. [address] [place], [address], [place]. tel:[phone] Referring Provider: Hernando Velasquez, [place], [address] . tel:[phone] OFFICE SVCYA-LUH-MO [facility], [address], [place], [place], [address] , tel: [phone] Aaron 6 month (chief complaint) Essential (primary) hypertensionC hronic GERDCerebral atrophyBody mass index (BMI) 40.0-44.9, adultMorbid (severe) obesity due to excess caloriesNeuro pathyLong term current use of opiate analgesic English Villagomez. [address] [place], [place], [address], [place]. tel:[phone] Referring Provider: [place], [address] . tel:[phone] [facility], [address], [place], [place], [address] , [place] tel: [phone] Aaron Breast calcification s 9 English Villagomez. [address] [place], [place], [address], [place]. tel:[phone] [facility], [address], [place], [place], [address] , [place] tel: [phone] Aaron No Information 9 English Villagomez. [address] [place], [place], [address], . tel:[phone] [facility], [address], [place], [place], [address] , [place] tel: [phone] [place] Hormone replacement therapySympto ms such as flushing, sleeplessness , headache, lack of concentration , associated with natural (age-related) menopause 9 English Villagomez. [address] [place], [address], [place]. tel:[phone] [facility], [address], [place], [place], [address] , tel: [phone] [place] sore under Left arm (chief complaint) Abscess of axilla 9 English Villagomez. [address] [place], [address], [place]. tel:[phone] Referring Provider: [place], [address] . tel:[phone] [facility], [address], [place], [place], [address] , tel: [phone] [place] sores under left arm (chief complaint) Abscess of axilla 9 Cymro Hernando. [address] [place], [place], [address], [place]. [phone] Referring Provider: [place], [address] . tel:[phone] [facility], [address], [place], [place], [address] , tel: [phone] Aaron SeizureMixed hyperlipidemi aEssential (primary) hypertensionC hronic GERDAortic atheroscleros isEsophageal strictureNeur opathy 9 English Villagomez. [address] [place], [address], [place]. tel:[phone] Referring Provider: [place], [address] . tel:[phone] [facility], [address], [place], [place], [address] , tel: [phone] Aaron No Information 8 English Villagomez. [address] [place], [place], [address], [place]. tel:[phone] Referring Provider: [place], [address] . tel:[phone] [facility], [address], [place], [place], [address] , tel: [phone] Aaron Body mass index (BMI) 33.0-33.9, adultEssentia l (primary) hypertensionC OPD with asthmaChronic GERDHyperlipi demia, unspecified hyperlipidemi a typeInsomnia disorder, with non-sleep disorder mental comorbidity, recurrent English Villagomez. [address] [place], [address], [place]. tel:[phone] Referring Provider: [place], [address] . tel:[phone] [facility], [address], [place], [place], [address] , [place] tel: [phone] Aaron Abscess of neck English Villagomez. [address] [place], [place], [address], [place]. tel:[phone] Referring Provider: [place], [address] . tel:[phone] [facility], [address], [place], [place], [address] , [place] tel: [phone] Aaron Chronic respiratory failure with hypoxiaAortic atheroscleros isGAD (generalized anxiety disorder)Ess ntial (primary) hypertension 8 English Villagomez. [address] [place], [address], [place]. tel:[phone] Referring Provider: [place], [address] . tel:[phone] [facility], [address], [place], [place], [address] , tel: [phone] Aaron detention current use of opiate analgesicSore throat 8 English Villagomez. [address] [place], [place], [address], . tel:[phone] Referring Provider: Hernando Velasquez, [address] [place], [address] . tel:[phone] [facility], [address], [place], [place], [address] , tel: [phone] [place] Hyponatremia Sep-0 8 Cymro Hernando. [address] [place], [place], [address], . tel:[phone] Referring Provider: Hernando Velasquez, [address] [place], [address] . tel:[phone] [facility], [address], [place], [place], [address] , tel: [phone] [place] Chronic respiratory failure with hypoxiaUnspec ified convulsionsEs sential (primary) hypertensionM orbid (severe) obesity due to excess caloriesGastr oparesis 8 English Villagomez. [address] [place] [address], [address], . tel:[phone] Referring Provider: Hernando Velasquez, [place], [address] . tel:[phone] [facility], [address], [place], [place], [address] , tel: [phone] [place] SOB (shortness of breath) 7 English Villagomez. [address] [place], [place], [address], . tel:[phone] [facility], [address], [place], [place], [address] , tel: [phone] [place] Morbid obesity due to excess caloriesSeizu reChronic respiratory failure, unspecified whether with hypoxia or hypercapniaOt her and unspecified hyperlipidemi aAortic atheroscleros isOsteoarthri tis of knee, unspecifiedBi polar 1 disorderEssen tial tremor 7 English Villagomez. [address] [place] [address], [address], . tel:[phone] Referring Provider: [place], [address] . tel:[phone] [facility], [address], [place], [place], [address] , tel: [phone] [place] Chronic respiratory failure, unspecified whether with hypoxia or hypercapniaBi polar 1 disorderClass 3 obesity with serious comorbidity and body mass index (BMI) of 40.0 to 44.9 in adult, unspecified obesity typeSeizureSO B (shortness of breath)Benign essential hypertension 7 English Villagomez. [address] [place], [place], [address], [place]. tel:[phone] Referring Provider: Hernando Velasquez, [address] [place], [address] . tel:[phone] [facility], [address], [place], [place], [address] , tel: [phone] [place] Weakness 7 Eder Kennedy. [facility], [facility], [place]. [phone] [facility], [address], [place], [place], [address] , tel: [phone] [place] Weakness 7 Eder Kennedy. [address], [facility], [place]. tel:[phone] [facility], [address], [place], [place], [address] , tel: [phone] [place] Essential hypertensionM ixed hyperlipidemi aModerate episode of recurrent major depressive disorderSeizu reGastroesoph ageal reflux disease, esophagitis presence not specifiedMorb id obesity due to excess caloriesSyndr ome of inappropriate antidiuretic hormone 7 Eder Kennedy. [address], [facility], [place]. tel:[phone] Referring Provider: Marcia Gaines, [address], [facility]. tel:[phone] [facility], [address], [place], [place], [address] , [place] tel: [phone] [place] Screening mammogram, encounter for 7 Eder Kennedy. [address] [address], [place], [address], . tel: [phone] [facility], [address], [place], [place], [address] , tel: [phone] [place] SOB (shortness of breath)Acute rhinosinusiti s 7 [facility]. [address] [place], [place], [address], [place]. tel:[phone] Referring Provider: Marcia Gaines, [address] [place] [address], [place], [facility]. tel:[phone] [facility], [address], [place], [place], [address] , tel: [phone] Aaron SeizureEssent ial hypertensionH yponatremiaMi xed hyperlipidemi aMorbid obesity due to excess caloriesModer ate episode of recurrent major depressive disorderLong term use of drug 6 Eder Kennedy. [address], [facility], [place]. tel:[phone] Referring Provider: Marcia Gaines, [address] [place] [address], [facility]. tel:[phone] [facility], [address], [place], [place], [address] , tel: [phone] [place] SOB (shortness of breath) 6 Eder Marcia. [address], [address], [place]. tel:[phone] [facility], [address], [place], [place], [address] , tel: [phone] [place] Pathological fracture, left ankle, sequela 6 Edersky Kennedy. [address] [facility] [address], [place], [address], [place]. tel: [phone] [facility], [address], [place], [address] , [place] tel: [phone] [place] Pathological fracture, left ankle, sequela Sep-2 3-201 6 Eder Kennedy. 1414 [facility], [address], [place], [address], [place]. tel: [phone] [facility], [address], [place], [place], [address] , [place] tel: [phone] [place] Pathological fracture, left ankle, sequela Sep-1 6-201 6 Eder Kennedy. 1414 [facility], [address], [place], [address], [place]. tel: [phone] [facility], [address], [place], [place], [address] , tel: [phone] [place] SANTI (obstructive sleep apnea) May- 6 Baltazar Lanie. [address] [place], [address]. tel: [phone] [facility], [address], [place], [place], [address] , [place] tel: [phone] [place] Carpal tunnel syndrome, unspecified upper limb Apr-1 8-201 6 Meg Toney. [address] [place], [place], [address], [place]. tel: [phone] [facility], [address], [place], [place], [address] , [place] tel: [phone] [place] Osteoarthriti s of knee, unspecified Apr-0 6-201 6 Meg Toney. [address] [place], [address], [place]. tel: [phone] [facility], [address], [place], [address] , [place] tel: [phone] [place] Chronic, continuous use of opioidsOther and unspecified hyperlipidemi aImpaired fasting glucoseSleep apnea, unspecified typeEssential (primary) hypertensionF atty liverGastropa irwin 6 Meg Toney. [address] [place], [place], [address], [place]. tel:[phone] Referring Provider: Feng Whitley, [address] [place], [address] . tel:[phone] [facility], [address], [place], [place], [address] , [place] tel: [phone] [place] Impaired fasting glucoseOther and unspecified hyperlipidemi aChronic, continuous use of opioids 6 Meg Toney. [address] [place], [address], [place]. tel:[phone] Referring Provider: Feng Whitley, [address] [place], [address] . tel:[phone] [facility], [address], [place], [place], [address] , [place] tel: [phone] [place] Lung nodule seen on imaging study 6 Meg Toney. [address] [place], [place], [address], [place]. tel:[phone] [facility], [address], [place], [address] , [place] tel: [phone] [place] Sleep apnea, unspecified type 6 Meg Tonye. [address] [place], [address], [place]. tel:[phone] [facility], [address], [place], [address] , [place] tel: [phone] [place] Syndrome of inappropriate antidiuretic hormone 5 Meg Toney. [address] [place], [address], [place]. tel:[phone] Referring Provider: Feng Whitley, [address] [place], [address] . tel:[phone] [facility], [address], [place], [address] , [place] tel:[phone] [place] Low serum sodiumSyndrom e of inappropriate antidiuretic hormone 5 Meg Toney. [address] [place], [place], [address], [place]. tel: [phone] [facility], [address], [place], [place], [address] , [place] tel: [phone] [place] Low sodium levels 5 Meg Toney. [address] [place], [address], [place]. tel:[phone] Referring Provider: Feng Whitley, [address] [place], [address] . tel:[phone] [facility], [address], [place], [place], [address] , [place] tel: [phone] [place] DermatitisEss ential (primary) hypertensionE ncntr for general adult medical exam w/o abnormal findingsHypon atremia 5 Torin John. [address] [place], [address], [place]. tel:[phone] Referring Provider: Feng Whitley, [address] [place], [address] . tel:[phone] [employer] [facility], [address], [place], [place], [address] , [place] tel: [phone] [place] Sleep apnea, unspecified 5 Meg Self [place], [address], [place]. tel:[phone] [facility], [address], [place], [place], [address] , [place] tel: [phone] [place] Hyperosmolali ty and/or hypernatremia Unspecified disease of white blood cells 5 Meg Self [place], [address], [place]. tel:[phone] Referring Provider: Feng Whitley, [address] [place], [address] . tel:[phone] [facility], [address], [place], [place], [address] , [place] tel: [phone] [place] Insomnia with sleep apnea, unspecifiedBe nign essential hypertensionB ackache, unspecifiedOt her and unspecified hyperlipidemi aOsteoarthros is, generalized, involving unspecified siteEsophagea l refluxOther convulsionsRi ght knee DJDAnalgesic useRoutine general medical examination at a health care facility Mar- 0 5 Meg Toney. [address] [place], [place], [address], [place]. [phone] Referring Provider: Feng Whitley, [address] [place], [address] . tel:[phone] [facility], [address], [place], [place], [address] , [place] tel: [phone] [place] Impaired fasting glucose Mar- 5 Mge Toney. [address] [place], [place], [address], [place]. tel:[phone] Referring Provider: Feng Whitley, [address] [place], [address] . tel:[phone] [facility], [address], [place], [place], [address] , [place] tel: [phone] [place] Benign essential hypertensionU nspecified idiopathic peripheral neuropathyIns omnia with sleep apnea, unspecifiedOt her convulsionsIr ritable bowel syndromeGenit al herpes, unspecified Fe- 5 Torin John. [address] [place], [address], [place]. [phone] Referring Provider: Feng Whitley, [address] [place], [address] . tel:[phone] [facility], [address], [place], [place], [address] , [place] tel: [phone] [place] No Information 3 4 Meg Toney. [address] [place], [place], [address], [place]. tel:[phone] Referring Provider: Feng Whitley, [address] [place], [address] . tel:[phone] [facility], [address], [place], [place], [address] , tel:[phone] [place] Neoplasm of uncertain behavior of face Mar-2 4201 4 [facility] Dora. [address] [place], [place], [facility], . tel:[phone] [facility], [address], [place], [place], [address] , tel:[phone] [place] Benign essential hypertensionB ackache, unspecifiedOt her and unspecified hyperlipidemi aUnspecified idiopathic peripheral neuropathyCTS (carpal tunnel syndrome)SANTI on CPAP Jan-3 0 4 Meg Toney. [address] [place], [place], [address], . tel:[phone] Referring Provider: Feng Whitley, [address] [place], [address] . tel:[phone] [facility], [address], [place], [place], [address] , tel: [phone] [place] Snoring November-2 0201 4 [facility] Dora. [facility] [place], [address], . tel:[phone] [facility], [address], [place], [place], [address] , tel:[phone] [place] BENIGN HYPERTENSIONH YPERLIPIDEMIA NEC/NOSLong-t erm (current) use of other medicationsFA M HX-DIABETES MELLITUSImpai red fasting glucose November-0 6201 4 Meg Toney. [address] [place], [place], [address], . tel:[phone] Referring Provider: Feng Whitley, [address] [place], [address] . tel:[phone] [facility], [address], [place], [place], [address] , tel: [phone] [place] Iron deficiency anemia 4 Meg Toney. [address] [place], [place], [address], [place]. tel:[phone] Referring Provider: Feng Whitley, [address] [place], [address] . tel:[phone] [facility], [address], [place], [place], [address] , tel: [phone] No Information Apr- 3 Giovanny Dela Cruz. [address] [place], [place], [address]. tel:[phone] [facility], [address], [place], [place], [address] , [place] tel: [phone] [place] No Information 3 Meg Toney. [address] [place], [place], [address], [place]. tel:[phone] [facility], [address], [place], [place], [address] , [place] tel: [phone] [place] IRRITABLE BOWEL SYNDROMEBENIG N HYPERTENSIONI NINA PERIPH NEURPTHY NOSESOPHAGEAL REFLUXGENERAL OSTEOARTHROSI SCONVULSIONS NECHeart murmur 3 Torin John. [address] [place], [address], [place]. tel:[phone] Referring Provider: Feng Whitley, [address] [place], [address] . tel:[phone] [facility], [address], [place], [place], [address] , [place] tel: [phone] [place] Cough 3 Meg Toney. [address] [place], [place], [address], [place]. tel:[phone] [facility], [address], [place], [place], [address] , tel: [phone] [place] BENIGN HYPERTENSIONB ACKACHE NOSCONVULSION S NECRight knee DJDEsophageal refluxOther and unspecified hyperlipidemi a 3 Meg Toney. [address] [place], [place], [address], . tel:[phone] Referring Provider: Feng Whitley, [address] [place], [address] . tel:[phone] [facility], [address], [place], [place], [address] , tel: [phone] [place] Other and unspecified hyperlipidemi aBenign essential hypertensionL coleen-term (current) use of other medications 3 Meg Toney. [address] [place], [place], [address], . [phone] Referring Provider: Feng Whitley, [address] [place], [address] . tel:[phone] [facility], [address], [place], [place], [address] , tel: [phone] [place] No Information 2 Meg Toney. [address] [place], [place], [address], . [phone] Referring Provider: Feng Whitley, [address] [place], [address] . tel:[phone] [facility], [address], [place], [place], [address] , tel: [phone] [place] IDIO PERIPH NEURPTHY NOSCONVULSION S NECBENIGN HYPERTENSIONG ENITAL HERPES NOSHYPERLIPID EMIA NEC/NOSAllerg ic rhinitis 2 Torin John. [address] [place], [address], [place]. tel:[phone] Referring Provider: Feng Whitley, [address] [place], [address] . tel:[phone] [facility], [address], [place], [place], [address] , [place] tel: [phone] [place] Blood in stool 2 Meg Toney. [address] [place], [place], [address], [place]. tel:[phone] Referring Provider: Feng Whitley, [address] [place], [address] . tel:[phone] [facility], [address], [place], [place], [address] , tel: [phone] [place] Long-term (current) use of other medications 1 Meg Toney. [address] [place] [address], [address], [place]. tel:[phone] Referring Provider: Feng Whitley, [address] [place], [address] . tel:[phone] [facility], [address], [place], [place], [address] , tel: [phone] [place] No Information 1 Meg Toney. [address] [place], [address], [place]. tel:[phone] Referring Provider: Feng Whitley, [address] [place], [address] . tel:[phone] [facility], [address], [place], [place], [address] , [place] tel: [phone] [place] HYPERLIPIDEMI A NEC/NOSLONG-T ERM USE MEDS NEC 1 Meg Self [place], [address], [place]. tel:[phone] [facility], [address], [place], [place], [address] , [place] tel: [phone] [place] No Information 1 Meg Serrano [address] [place], [place], [address], . tel:[phone] [facility], [address], [place], [place], [address] , [place] tel: [phone] [place] IDIO PERIPH NEURPTHY NOS 1 Torin Dora. [address] [place], [address], [place]. tel:[phone] [facility], [address], [place], [place], [address] , tel: [phone] [place] BENIGN HYPERTENSION 1 Meg Self [place], [address], [place]. tel:[phone] [facility], [address], [place], [place], [address] , [place] tel: [phone] [place] HERPES ZOSTER NOS 0 Meg Serrano [address] [place] [address], [address], [place]. tel:[phone] [facility], [address], [place], [place], [address] , tel: [phone] [place] SCREEN MALIG NEOP-COLON 0 Meg Serrano [address] [place] [address], [address], [place]. tel:[phone] [facility], [address], [place], [place], [address] , [place] tel: [phone] [place] VACCIN FOR INFLUENZA 0 Meg Serrano [address] [place] [address], [address], [place]. tel:[phone] [facility], [address], [place], [place], [address] , [place] tel:[phone] [place] TEAR FILM INSUFFIC NOS Sep-0 2-201 0 Conversion Doctor. [facility] Roxanne Easley, [place], [address], [place]. [facility], [address], [place], [place], [address] , tel:[phone] Aaron FAM HX-DIABETES MELLITUS 2-201 0 Meg Self [place], [place], [address], [place]. tel:[phone] [facility], [address], [place], [place], [address] , [place] tel: [phone] [place] GENERAL OSTEOARTHROSI S 0 Meg Serrano [address] [place], [place], [address], [place]. tel: [phone] [facility], [address], [place], [place], [address] , [place] tel:[phone] [place] GENITAL HERPES NOS 0 Meg Self [place], [address], [place]. tel: [phone] [facility], [address], [place], [place], [address] , tel:[phone] [place] CONVULSIONS NEC 9 Meg Self [place], [place], [address], [place]. tel: [phone] [facility], [address], [place], [place], [address] , tel:[phone] [place] No Information 2 8 Meg Self [place], [place], [address], [place]. tel: [phone] [facility], [address], [place], [place], [address] , tel: [phone] [place] MIGRNE UNSP WO NTR MGRNESOPHAGEA L REFLUX 0 7 Meg Self [place], [address], [place]. tel: [phone] [facility], [address], [place], [place], [address] , [place] tel: [phone] [place] HORMONE REPLACE POSTMENO 9 7 Meg Self [place], [address], [place]. tel: [phone] [facility], [address], [place], [place], [address] , [place] tel: [phone] [place] SCREEN LIPOID DISORDERS 5 Meg Self [place], [address], . tel:[phone] [facility], [address], [place], [place], [address] , tel: [phone] [place] ROUTINE MEDICAL EXAM 3 Meg Self [place], [place], [address], . tel:[phone] [facility], [address], [place], [place], [address] , tel: [phone] [place] SCREEN MAL NEOP OT SITE 2 Meg Self [place], [address], . tel:[phone] Family History Family Member Type Diagnosis Age [...] Record Flublok, quadrivalent, preservative free, 0.5mL dosage Oct-05-2023 administered Source: New Immunization Record Pfizer (Bivalent Booster) CO VID Vac, 30mcg/0.3mL, 12+ years administered Source: Othe r Provider Flublok, quadrivalent, preservative free, 0.5mL dosage administered Source: New Immunization Record Pfizer (Diluent Reconstitute d) COVID19 Vaccine, 0.3mL per dose, 2 doses, administered 21 days apart administered Note: correction n ursing home ; Source: Other Provider Fluzone High-Dose, high dose , preservative free administered Note: done at the [facility] (date is approximate) ; Source: Source Unspecified Pfizer-BioNTech COVID19 Vaccine, 0.3mL per dose, 2 doses, administered 21 days apart administered Note: [facility] ; Source: Source Unspecified Pfizer-BioNTech COVID19 Vaccine, 0.3mL per dose, 2 doses, administered 21 days apart administered Note: [facility] ; Source: Source Unspecified pneumococcal polysaccharide vaccine, 23 valent administered Note: hospital ; [facility] rce: Source Unspecified Flublok, quadrivalent, preservative [...] New Immuniz ation Record Fluzone administered Note: [facility] [id number] ; Source: New Immunization Record Fluzone administered Note: [facility]# [id number] ; Source: New Immunization Record Flu (split) (3 yrs or older) administered Source: New Immunization Record 81416 - Influenza administered Source: So urce Unspecified 95173 - Influenza administered Source: So urce Unspecified 27383 - Pneumococcal_PPV23 administered S ource: Source Unspecified 50935 - Influenza administered Source: So urce Unspecified 47677 - Influenza administered Source: So urce Unspecified 21454 - Influenza administered Source: So urce Unspecified 99328 - Influenza administered Source: So urce Unspecified 31501 - Influenza administered Source: So urce Unspecified 22168 - Influenza administered Source: So urce Unspecified Payers Payer name Insurance type Covered green party ID Authoriza tion(s) AETNA PPO CI [id number] AETNA PPO CI [id number] AETNA PPO CI [id number] AETNA [facility] [place] [id number] [place] [facility] [id number] A[facility]NA [facility] [place] [id number] AETNA [facility] ADVANTAGE [facility] MB [id number] [employer] [facility] [place] [place] [id number] A[employer] [facility] AD[facility] O MB [id number] Social History Type Description Quantity Date Captured [...] and counseling completed Referral [facility] To: [address] [facility] [place] [phone] Ordered: SCREENING MAMMOGRAM (CAD) ordered Referral Ordered: JUAN C POLANCO -[facility]opathic [facility] Osteopathic Physicians : Orthopaedic Surgery (related to Follow-up exam) ordered Referral Referred To: JUAN C POLANCO [address] [place], [phone] Ordered: Referrals: Orthopedic Surgery. JUAN C POLANCO. Evaluation/diagnostic/treatment - Level 3 Appointment date/timeframe: 09/24/2022 ordered Referral Ordered: COLONOSCOPY, Flexible, Proximal To Splenic, Diagnostic, Wor W/O Collection Of Sp ordered Referral Ordered: HANG (ankle brachial index) ordered Referral Referred To: Dean Stephenson MD [address] [facility] [address] Mendoza. [address] [place] [address], [phone] Ordered: Referrals: Pulmonology. Dean Stephenson MD. Evaluation/diagnostic/treatment [...] weightpt cannot walk at all bc of [id number] strength in right legstrengthin right arm 2/5strength [...] screeningimmunizations--utdmood-- up and downmemory-- fine hospital and correction f/u re spiratpry failure-- still on oxygenleft [...] while I was in my office in [place], and pt. was in their home in [place]. hospital f/u 68 year old reagan patel who presents for hospital follow-up. She was admitted to [facility] on 06/10/2019. Patient presented to ER [...] x-ray. Patient was given home doses of [place] and was given Flexeril, lidocaine patches and [...] capsaicin, Baclofen PO and home dose of [place]. Patient was discharged with no new medications. She had no other imaging performedPatient was noted to have hyperkalemia one month ago. We will check labs todayShe has a TENS units (latex free) but she still has a rash from the patches.Patient feels that her hydrocodone needs to be increased. 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 continue medslow salt diet [...] to Body mass index (BMI) 40.0-44.9, adult kandywill continue to monitor mem ory Related to Cerebral atrophy Medication management Dietary management e ducation, guidance, and counseling Related to Body mass index (BMI) 40.0-44.9, adult sally melony coates has some hydranitis suppurative Related to Abscess of axilla Medication management fabiana treat with doxyc all next week if not better Related to Abscess of axilla Medication management Assessments Type Assessment Date No Information Patient Care Teams Name Effective Dates (start - stop) Status Members No Information
[2025-06-25] VITALS (7 sets, daily range): BP systolic 184–222; BP diastolic 6–76; PULSE 78–92; RESP 14–18; TEMP 36.6; O2SAT 95–100
--- NOTE | 2025-06-25 10:23 | ED.GENADULT ---
HPI - General Adult General Chief complaint: Recheck/Abnormal Lab/Rx <JOSE CRUZ Soto - Last Filed: 06/26/25 09:23> Stated complaint: ABN LABS, <JOSE CRUZ Soto - Last Filed: 06/26/25 09:23> History of Present Illness HPI narrative: 74-year-old female presenting with concerns for electrolyte abnormalities. Patient reports a significant history of electrolyte issues stating she was told her sodium is currently at 119. She reports she has not taken her sodium chloride supplements since Wednesday. She also reports that she was not able to take any of her home medications today so her blood pressure is elevated she has a headache. She had a pacemaker placed 2 months ago and is on Xarelto. Patient is A&O x3. Denies weakness, dizziness, fevers/chills. <JOSE CRUZ Soto - Last Filed: 06/26/25 09:23> Related Data Home medications: Home Medications ?Medication ?Instructions ?Recorded ?Confirmed ?Last Taken ?Type fluticasone propionate 50 1 spray intranasal DAILY 09/09/19 03/27/25 03/27/25 History mcg/actuation nasal spray,suspension docusate sodium 100 mg tablet 200 mg PO BID Constipation 05/31/20 03/27/25 03/27/25 History amlodipine 10 mg tablet 10 mg PO DAILY 04/23/24 03/27/25 03/27/25 History bisacodyl 5 mg tablet,delayed 10 mg PO HS PRN Constipation 04/23/24 03/27/25 Unknown History release (Dulcolax (bisacodyl)) guaifenesin 1,200 mg tablet, 1,200 mg PO Q12H 04/23/24 03/27/25 03/27/25 History extended release 12 hr (Mucinex) memantine 5 mg tablet 5 mg PO BID 04/23/24 03/27/25 03/27/25 History ondansetron HCl 4 mg tablet 4 mg PO TID 04/23/24 03/27/25 03/27/25 History isosorbide mononitrate 30 mg 30 mg PO DAILY 08/06/24 03/27/25 03/27/25 History tablet,extended release 24 hr lidocaine 5 % topical patch 2 patch topical HS 08/06/24 03/27/25 03/26/25 History (Lidoderm) magnesium hydroxide 400 mg/5 mL 30 ml PO DAILY PRN constipation 08/06/24 03/27/25 Unknown History oral suspension (Gentle Laxative (magnesium hydroxide)) atorvastatin 10 mg tablet (Lipitor) 10 mg PO HS 01/18/25 03/27/25 03/26/25 History buspirone 10 mg tablet 10 mg PO TID 01/18/25 03/27/25 03/27/25 History clonazepam 0.5 mg tablet 0.5 mg PO Q12H 01/18/25 03/27/25 03/27/25 History famciclovir 250 mg tablet 250 mg PO Q12H 01/18/25 03/27/25 03/27/25 History magnesium citrate 300 ml PO DAILY PRN constipation 01/18/25 03/27/25 Unknown History primidone 50 mg tablet See Rx Instructions .Route .COMPLEX 01/18/25 03/27/25 03/27/25 History sennosides 8.6 mg-docusate sodium 2 tab-cap PO BID 01/18/25 03/27/25 03/27/25 History 50 mg tablet (Senna Plus) spironolactone 25 mg tablet 25 mg PO DAILY 01/18/25 03/27/25 03/27/25 History famotidine 10 mg tablet (Heartburn 10 mg PO DAILY 02/08/25 03/27/25 03/27/25 History Relief (famotidine)) tizanidine 2 mg tablet 2 mg PO Q12H 02/08/25 03/27/25 03/27/25 History polyethylene glycol 3350 17 17 g PO DAILY 02/19/25 03/27/25 03/27/25 History gram/dose oral powder polyvinyl alcohol 1.4 % eye drops 2 drp EACH EYE BID 02/19/25 03/27/25 03/27/25 History (Artificial Tears (polyvinyl alcohol)) sodium chloride 1,000 mg soluble 1,000 mg PO BID 02/19/25 03/27/25 03/27/25 History tablet venlafaxine 37.5 mg 37.5 mg PO DAILY 03/27/25 03/27/25 03/27/25 History capsule,extended release 24 hr (Effexor XR) <JOSE CRUZ Soto - Last Filed: 06/26/25 09:23> Allergies/adverse reactions: Allergies Allergy/AdvReac Type Severity Reaction Status Date / Time Fish Containing Products Allergy Severe Dyspnea / Verified 04/25/25 09:25 SOB Iodinated Contrast Media Allergy Intermediate HIVES, RED Verified 04/25/25 09:25 FACE iodine Allergy Unknown Unknown Verified 04/25/25 09:25 Barbiturates Allergy Unknown Verified 04/25/25 09:25 bupivacaine Allergy Unknown Verified 04/25/25 09:25 diazepam (From Valium) Allergy Unknown Verified 04/25/25 09:25 latex Allergy Unknown Verified 04/25/25 09:25 menthol Allergy Unknown Verified 04/25/25 09:25 Sulfa (Sulfonamide Allergy Unknown Verified 04/25/25 09:25 Antibiotics) thiopental (From Pentothal) Allergy Unknown Verified 04/25/25 09:25 wool Allergy Unknown Verified 04/25/25 09:25 <JOSE CRUZ Soto - Last Filed: 06/26/25 09:23> Review of Systems Review of Systems: All systems reviewed & are unremarkable except as noted in HPI and below <JOSE CRUZ Soto - Last Filed: 06/26/25 09:23> [facility] Past Medical History Medical History: Medical History History of atrial fibrillation Failure to thrive CVA (cerebral vascular accident) Chronic anticoagulation Kidney stone Chronic anemia Chronic respiratory failure with hypoxia, on home oxygen therapy Bipolar disorder Gastroesophageal reflux disease Hyperlipidemia Hypertension Obstructive sleep apnea intolerant to CPAP Left tibial fracture Chronic hyponatremia Shingles Anxiety Depression Gastroparesis Diverticulitis Asthma Epilepsy no longer on medication Seasonal allergies <JOSE CRUZ Soto Last Filed: 06/26/25 09:23> Surgical History Surgical History: Surgical History History of left above knee amputation History of right shoulder replacement History of cholecystectomy History of left knee replacement History of hysterectomy History of open reduction and internal fixation (ORIF) procedure Left tibia and right ankle. History of appendectomy History of tonsillectomy <JOSE CRUZ Soto Last Filed: 06/26/25 09:23> Family History Family History: Family History Mother Suicide Depression Heart disease Hypertension Heart failure Sibling Suicide Father Diabetes mellitus Emphysema lung <JOSE CRUZ Soto - Last Filed: 06/26/25 09:23> Social History Social History: Social History Social History: Surrogate medical decision maker: Martina Rodney, daughter. Code status: Full code. Smoking status: Never smoker Second hand tobacco smoke exposure: No Alcohol intake: former Substance use: never Substance use type: does not use Lack of Transportation: No Lack of Food: Never True Current Housing: I Have Housing Concerned About Future Housing: No Difficulty Paying Gas/Electric Bills: No Difficulty Paying for Meds: No Currently Unemployed: No Education: High School Diploma/GED Difficulty w/ Childcare or Family Care: No Living arrangements[place] Occupation/Education: retired Spiritual care concerns: No Agree to blood products: No <JOSE CRUZ Soto - Last Filed: 06/26/25 09:23> Exam Narrative: GENERAL: No acute distress. HEAD: Normocephalic, atraumatic. EYES: PERRLA and EOMI. ENT: Nares clear, no rhinorrhea or epistaxis. Mucous membranes moist. Oropharynx without tonsillar hypertrophy exudate or other lesions. Bilateral TMs pearly jerome non-bulging NECK: Supple. No adenopathy or masses. No carotid bruits or JVD CHEST: Clear to auscultation. No respiratory distress. No wheezes rales or rhonchi. 4L nasal cannula at baseline. HEART: Regular rate and rhythm. No murmur heard. Normal peripheral pulses. ABDOMEN: Soft, nontender, nondistended, normal active bowel sounds. EXTREMITIES: Normal range of motion. No edema. Left lower extremity amputee. SKIN: Warm, dry, no rash. NEURO: No focal deficits. Alert and oriented x3. PSYCH: Normal mood and affect <JOSE CRUZ Soto - Last Filed: 06/26/25 09:23> Course CABLE TOWER OPERATOR/PA Physician Supervision This visit was performed by both a physician and an APC; I performed all aspects of the medical decision making component of this evaluation as documented. <Marcy Haywood MD - Last Filed: 06/26/25 13:33> Vital Signs Vital signs: Vital Signs Temperature 97.9 F 06/25/25 10:07 Pulse Rate 90 06/25/25 10:07 Respiratory Rate 18 06/25/25 10:07 Blood Pressure 205/76 H 06/25/25 10:07 Pulse Oximetry 100 06/25/25 10:07 Oxygen Delivery Nasal Cannula 06/25/25 10:07 Oxygen Flow Rate 4 06/25/25 10:07 Temperature 97.9 F 06/25/25 10:07 Pulse Rate 78 06/25/25 19:25 Respiratory Rate 18 06/25/25 19:25 Blood Pressure 205/69 H 06/25/25 19:25 Pulse Oximetry 100 06/25/25 19:25 Oxygen Delivery Nasal Cannula 06/25/25 10:07 Oxygen Flow Rate 4 06/25/25 10:07 <JOSE CRUZ Soto - Last Filed: 06/26/25 09:23> Vital Signs Temperature 97.9 F 06/25/25 10:07 Pulse Rate 90 06/25/25 10:07 Respiratory Rate 18 06/25/25 10:07 Blood Pressure 205/76 H 06/25/25 10:07 Pulse Oximetry 100 06/25/25 10:07 Oxygen Delivery Nasal Cannula 06/25/25 10:07 Oxygen Flow Rate 4 06/25/25 10:07 Temperature 97.9 F 06/25/25 10:07 Pulse Rate 78 06/25/25 19:25 Respiratory Rate 18 06/25/25 19:25 Blood Pressure 205/69 H 06/25/25 19:25 Pulse Oximetry 100 06/25/25 19:25 Oxygen Delivery Nasal Cannula 06/25/25 10:07 Oxygen Flow Rate 4 06/25/25 10:07 <Marcy Haywood MD - Last Filed: 06/26/25 13:33> Medical Decision Making MDM Narrative Medical decision making narrative: 74-year-old female presenting by EMS from her care facility with concerns for electrolyte abnormalities. Patient reports a significant history of electrolyte issues for years, stating she was told her sodium is currently at 119. She reports she has not taken her sodium chloride supplements since Wednesday. She also reports that she was not able to take any of her home medications today so her blood pressure is elevated and she has a headache. She had a pacemaker placed 2 months ago and is on Xarelto. Patient is A&O x3. Denies weakness, dizziness, fevers/chills, or vision changes. Upon my initial assessment patient appears nontoxic and is reporting no concerns other than a headache. She states that this is a common occurrence due to her uncontrolled hypertension. She also reports that she deals with chronic hyponatremia. Administered 1 L NS. Labs WNL for patient. Discussed with Dr. Rodgers patient presentation and workup. Agrees with plan for continued outpatient treatment as the patient is not symptomatic. Furthermore, patient had elevated pressures during her stay. The patient reports that this is an ongoing concern being addressed by outside providers and that her pressures typically sit high. Administered her at home bp medications and pain medication as she was unable to take them this morning. Blood pressure continued to be elevated. I discussed with the patient the importance for outpatient follow-up for both her electrolyte abnormalities and hypertension. Patient agrees with discussion and after shared medical decision making agrees with plan of care. All questions were answered to the patient's satisfaction. Given reasons to return. <JOSE CRUZ Soto - Last Filed: 06/26/25 09:23> Medical Records Medical records reviewed: Yes I reviewed the external patient's medical records. <JOSE CRUZ Soto - Last Filed: 06/26/25 09:23> Vital Signs Vital Signs: Vital Signs Temperature 97.9 F 06/25/25 10:07 Pulse Rate 90 06/25/25 10:07 Respiratory Rate 18 06/25/25 10:07 Blood Pressure 205/76 H 06/25/25 10:07 Pulse Oximetry 100 06/25/25 10:07 Oxygen Delivery Nasal Cannula 06/25/25 10:07 Oxygen Flow Rate 4 06/25/25 10:07 Temperature 97.9 F 06/25/25 10:07 Pulse Rate 78 06/25/25 19:25 Respiratory Rate 18 06/25/25 19:25 Blood Pressure 205/69 H 06/25/25 19:25 Pulse Oximetry 100 06/25/25 19:25 Oxygen Delivery Nasal Cannula 06/25/25 10:07 Oxygen Flow Rate 4 06/25/25 10:07 <JOSE CRUZ Soto - Last Filed: 06/26/25 09:23> Vital Signs Temperature 97.9 F 06/25/25 10:07 Pulse Rate 90 06/25/25 10:07 Respiratory Rate 18 06/25/25 10:07 Blood Pressure 205/76 H 06/25/25 10:07 Pulse Oximetry 100 06/25/25 10:07 Oxygen Delivery Nasal Cannula 06/25/25 10:07 Oxygen Flow Rate 4 06/25/25 10:07 Temperature 97.9 F 06/25/25 10:07 Pulse Rate 78 06/25/25 19:25 Respiratory Rate 18 06/25/25 19:25 Blood Pressure 205/69 H 06/25/25 19:25 Pulse Oximetry 100 06/25/25 19:25 Oxygen Delivery Nasal Cannula 06/25/25 10:07 Oxygen Flow Rate 4 06/25/25 10:07 <Marcy Haywood MD - Last Filed: 06/26/25 13:33> Lab Data Lab results reviewed: Yes I reviewed the patient's lab results. <JOSE CRUZ Soto - Last Filed: 06/26/25 09:23> Result diagrams: 06/25/25 10:50 06/25/25 10:50 <JOSE CRUZ Soto - Last Filed: 06/26/25 09:23> Labs: Lab Results 06/25/25 Range/Units 10:50 WBC 6.5 (4.5-10.0) K/mm3 RBC 3.80 L (4.2-5.4) M/mm3 Hgb 9.5 L (12.0-15.0) g/dL Hct 29.3 L (37.0-47.0) % MCV 77.1 L (80-100) fl MCH 25.0 L (26-34) pg MCHC 32.4 (32-36) g/dl RDW 15.5 H (11.5-14.5) % Plt Count 291 (150-375) k/mm3 MPV 10.6 H (7.4-10.4) fl Immature Gran % (Auto) 0.9 H (0-0.5) % Neut % (Auto) 56.4 (45.5-73.1) % Lymph % (Auto) 24.2 (18.3-44.2) % Motley % (Auto) 12.1 H (2.6-8.5) % Eos % (Auto) 5.8 H (0-4.4) % Baso % (Auto) 0.6 (0.2-1.2) % Lymph # (Auto) 1.58 (0.9-3.2) K/mm3 Motley # (Auto) 0.8 H (0.1-0.6) K/mm3 Eos # (Auto) 0.4 H (0-0.3) K/mm3 Baso # (Auto) 0.0 (0.0-0.1) K/mm3 Abs Immat Gran (auto) 0.06 H (0.00-0.031) K/mm3 Absolute Neuts (auto) 3.7 (1.3-6.7) K/mm3 Absolute Nucleated RBC 0.000 (0.0-0.012) K/mm3 Nucleated RBC % 0.0 (0.0-0.2) % Sodium 121 L (137-145) mmol/L Potassium 4.9 (3.4-5.0) mmol/L Chloride 85 L (98-107) mmol/L Carbon Dioxide 30 (22-30) mmol/L Anion Gap 6 (4-12) mmol/L BUN 20 H (7-17) mg/dL Creatinine 0.60 L (0.7-1.0) mg/dL Estim Creat Clear Calc 73 ml/min Estimated GFR > 60 (59 - ) Glucose 107 (65-110) mg/dL Calcium 8.9 (8.4-10.2) mg/dL Total Bilirubin 0.1 L (0.2-1.3) mg/dL AST 27 (14-36) U/L ALT 21 (6-35) U/L Alkaline Phosphatase 78 (38-126) U/L Total Protein 7.6 (6.3-8.2) g/dL Albumin 4.4 (3.5-5.1) g/dL <JOSE CRUZ Soto - Last Filed: 06/26/25 09:23> Lab Results 06/25/25 Range/Units 10:50 WBC 6.5 (4.5-10.0) K/mm3 RBC 3.80 L (4.2-5.4) M/mm3 Hgb 9.5 L (12.0-15.0) g/dL Hct 29.3 L (37.0-47.0) % MCV 77.1 L (80-100) fl MCH 25.0 L (26-34) pg MCHC 32.4 (32-36) g/dl RDW 15.5 H (11.5-14.5) % Plt Count 291 (150-375) k/mm3 MPV 10.6 H (7.4-10.4) fl Immature Gran % (Auto) 0.9 H (0-0.5) % Neut % (Auto) 56.4 (45.5-73.1) % Lymph % (Auto) 24.2 (18.3-44.2) % Motley % (Auto) 12.1 H (2.6-8.5) % Eos % (Auto) 5.8 H (0-4.4) % Baso % (Auto) 0.6 (0.2-1.2) % Lymph # (Auto) 1.58 (0.9-3.2) K/mm3 [place] # (Auto) 0.8 H (0.1-0.6) K/mm3 Eos # (Auto) 0.4 H (0-0.3) K/mm3 Baso # (Auto) 0.0 (0.0-0.1) K/mm3 Abs Immat Gran (auto) 0.06 H (0.00-0.031) K/mm3 Absolute Neuts (auto) 3.7 (1.3-6.7) K/mm3 Absolute Nucleated RBC 0.000 (0.0-0.012) K/mm3 Nucleated RBC % 0.0 (0.0-0.2) % Sodium 121 L (137-145) mmol/L Potassium 4.9 (3.4-5.0) mmol/L Chloride 85 L (98-107) mmol/L Carbon Dioxide 30 (22-30) mmol/L Anion Gap 6 (4-12) mmol/L BUN 20 H (7-17) mg/dL Creatinine 0.60 L (0.7-1.0) mg/dL Estim Creat Clear Calc 73 ml/min Estimated GFR > 60 (59 - ) Glucose 107 (65-110) mg/dL Calcium 8.9 (8.4-10.2) mg/dL Total Bilirubin 0.1 L (0.2-1.3) mg/dL AST 27 (14-36) U/L ALT 21 (6-35) U/L Alkaline Phosphatase 78 (38-126) U/L Total Protein 7.6 (6.3-8.2) g/dL Albumin 4.4 (3.5-5.1) g/dL <Marcy Haywood MD - Last Filed: 06/26/25 13:33> Discharge Plan Discharge Clinical Impression: Chronic hyponatremia <JOSE CRUZ Soto - Last Filed: 06/26/25 09:23> Patient Disposition: [facility] Care Home/Asst Living <JOSE CRUZ Soto - Last Filed: 06/26/25 09:23> Condition: Stable <JOSE CRUZ Soto - Last Filed: 06/26/25 09:23> Instructions: Hyponatremia (ED) <JOSE CRUZ Soto - Last Filed: 06/26/25 09:23> Additional Instructions: Return to the emergency department if you experience fever, chest pain, shortness of breath, abdominal pain with nausea and vomiting, weakness, numbness/tingling, or any other symptoms that are concerning to you. Follow up with primary care doctor. <JOSE CRUZ Soto - Last Filed: 06/26/25 09:23> Patient Language: Polish <JOSE CRUZ Soto - Last Filed: 06/26/25 09:23> Prescriptions: No Action docusate sodium 100 mg Tablet 200 mg PO BID isosorbide mononitrate 30 mg tablet extended release 24 hr 30 mg PO DAILY lidocaine [Lidoderm] 5 % adhesive patch,medicated 2 patch topical HS Patient Comments: left shoulder Rx Instructions: leave on most painful area for up to 12 hrs magnesium hydroxide [Gentle Laxative (mag hydrox)] 400 mg/5 mL suspension 30 ml PO DAILY PRN (Reason: constipation) Xarelto 20 mg Tablet 20 mg PO DAILY@1700 Qty: 60 0RF oxycodone-acetaminophen 5-325 mg Tablet 1 tablet PO Q8H PRN (Reason: Pain Rated 7-10) Qty: 10 0RF irbesartan 150 mg Tablet 300 mg PO QAM Qty: 30 0RF primidone 50 mg tablet See Rx Instructions .ROUTE .COMPLEX Rx Instructions: 200 MG PO BID; spironolactone 25 mg tablet 25 mg PO DAILY buspirone 10 mg tablet 10 mg PO TID clonazepam 0.5 mg tablet 0.5 mg PO Q12H magnesium citrate Solution 300 ml PO DAILY PRN (Reason: constipation) famciclovir 250 mg tablet 250 mg PO Q12H atorvastatin [Lipitor] 10 mg tablet 10 mg PO HS sennosides-docusate sodium [Senna Plus] 8.6-50 mg tablet 2 tab-cap PO BID tizanidine 2 mg tablet 2 mg PO Q12H famotidine [Heartburn Relief (famotidine)] 10 mg Tablet 10 mg PO DAILY ipratropium-albuterol 0.5 mg-3 mg(2.5 mg base)/3 mL Solution For Nebulization 3 ml inhalation Q6HRT PRN (Reason: Wheezing) Qty: 30 0RF fluticasone propionate 50 mcg/actuation [place],Suspension 1 spray INTRANASAL DAILY ondansetron HCl 4 mg tablet 4 mg PO TID amlodipine 10 mg tablet 10 mg PO DAILY bisacodyl [Dulcolax (bisacodyl)] 5 mg Tablet,Delayed Release (Dr/Ec) 10 mg PO HS PRN (Reason: Constipation) memantine 5 mg tablet 5 mg PO BID guaifenesin [Mucinex] 1,200 mg Tablet Extended Release 12hr 1,200 mg PO Q12H pregabalin [Lyrica] 150 mg Capsule 150 mg PO BID Qty: 14 0RF polyethylene glycol 3350 17 gram/dose powder 17 g PO DAILY polyvinyl alcohol [Artificial Tears (polyvin alc)] 1.4 % drops 2 drp EACH EYE BID sodium chloride 1,000 mg tablet,soluble 1,000 mg PO BID furosemide 20 mg Tablet 20 mg PO BID 30 Days Qty: 60 0RF venlafaxine [Effexor XR] 37.5 mg capsule,extended release 24hr 37.5 mg PO DAILY hydralazine 10 mg tablet 25 mg PO Q8H Qty: 30 0RF <JOSE CRUZ Soto - Last Filed: 06/26/25 09:23> Follow-up/Referrals: UNKNOWN,DOCTOR [Primary Care Provider] <JOSE CRUZ Soto - Last Filed: 06/26/25 09:23>
[2025-06-25] MEDS: ACETAMINOPHEN 500 MG TABLET 1000 MG PO (10:29)
[2025-06-25] MEDS: IRBESARTAN 150 MG TABLET 300 MG PO (10:53)
[2025-06-25 11:02] LABS: Hematocrit 29.3 % (37.0-47.0); Hemoglobin 9.5 g/dL (12.0-15.0); Immature Granulocyte Percent A 0.9 % (0-0.5); Lymphocytes Absolute Auto 1.58 K/mm3 (0.9-3.2); Mean Corpuscular HGB Conc 32.4 g/dl (32-36); Mean Corpuscular Hemoglobin 25.0 pg (26-34); Mean Corpuscular Volume 77.1 fl (80-100); Nucleated Red Blood Cells Absolute Auto 0.000 K/mm3 (0.0-0.012); Nucleated Red Blood Cells Perc 0.0 % (0.0-0.2); Platelet Count Result 291 k/mm3 (150-375); Red Blood Count 3.80 M/mm3 (4.2-5.4); White Blood Count 6.5 K/mm3 (4.5-10.0)
--- OUTSIDE RECORDS SUMMARY | 2025-06-25 11:20 | XMS_ITS | Encounter Summary ---
Author Organization [facility] Facility Care Team Providers Care Water Meter Mechanic Name Role Phone Hernando Velasquez MD Primary Care Provider [phone] Jose Manuel Gruber MD Unavailable [phone] Bernardo Edwards MD Primary Care Provider Hernando Velasquez MD Primary Care Provider [phone] Bernardo Edwards MD Primary Care Provider [phone] Bernardo Edwards MD Primary Care Provider [phone] Hernando Velasquez MD Primary Care Provider [phone] Encounter Details Date Type Department Care Team (Latest Contact Info) Description 07/22/2016 Orders Only [facility] ProviderLucille MD [address] [place] [id number] Social History Tobacco Use Types Packs/Day [...] Comments SCAN - LABS 07/23/2016 12:00 AM 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 us [...] documented as of this encounter Care Teams Water Meter Mechanic Relationship Specialty Start Date End Date Hernando Velasquez MD PCP - General 12/23/18 06/13/19 Bernardo Edwards MD [address] [place] [address] PCP - General 07/05/20 07/06/20 Hernando Velasquez MD PCP - General 07/07/20 07/07/20 Bernardo Edwards MD [address] [place] [address] PCP - General 07/08/20 01/06/22 Bernardo Edwards MD [address] [place] [address] PCP - General 06/14/19 07/04/20 eHrnando Velasquez MD PCP - General Internal Medicine 01/07/22 Jose Manuel Gruber MD Fellow Orthopedic Surgery 07/06/19 documented as of this encounter
--- OUTSIDE RECORDS SUMMARY | 2025-06-25 11:20 | XMS_ITS | Encounter Summary ---
Author Organization [facility] Care Team Providers Care Scanning Clerk Name Role Phone Hernando Velasquez MD Primary Care Provider [phone] Jose Manuel Gruber MD Unavailable Bernardo Edwards MD Primary Care Provider [phone] Hernando Velasquez MD Primary Care Provider [phone] Bernardo Edwards MD Primary Care Provider [phone] Bernardo Edwards MD Primary Care Provider [phone] Hernando Velasquez MD Primary Care Provider [phone] Encounter Details Date Type Department Care Team (Latest Contact Info) Description 07/12/2016 Orders Only [facility]INCON[facility] ProviderLucille MD [address] [place] [id number] Social History Tobacco Use Types Packs/Day [...] Comments SCAN - LABS 07/23/2016 12:00 AM 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 us Historical [...] documented as of this encounter Care Teams Scanning Clerk Relationship Specialty Start Date End Date Hernando Velasquez MD PCP - General 12/23/18 06/13/19 Bernardo Edwards MD [address] [place] [address] PCP - General 07/05/20 07/06/20 Hernando Velasquez MD PCP - General 07/07/20 07/07/20 Bernardo Edwards MD [address] [place] [address] PCP - General 07/08/20 01/06/22 Bernardo Edwards MD [address] [place] [address] PCP - General 06/14/19 07/04/20 Hernando Velasquez MD PCP - General Internal Medicine 01/07/22 Jose Manuel Gruber MD Fellow Orthopedic Surgery 07/06/19 documented as of this encounter
--- OUTSIDE RECORDS SUMMARY | 2025-06-25 11:21 | XMS_ITS | Clinical Summary ---
Author Organization [facility] Address Formerly [facility] [place] [address] Care Team Providers Care Gamer Name Role Phone Marcia Gaines MD Primary Care Provider [phone] Allergies Active Allergy Reactions Criticality Noted Date Comments Diazepam Unknown 06/28/2019 Fish Oil Unknown 06/07/2019 Fish Protein-Containing Drug Products Anaphylaxis High 07/05/2019 Iodine Unknown 06/28/2019 [...] tartrate 25 MG tablet 1 Active NYSTATIN [id number] UNIT/GM powder 1 Active ondansetron 8 MG [...] Noted Date Diagnosed Date Status post above-knee amputation of left lower extremity 08/02/2020 Leg skin lesion, left 07/05/2020 Overview (05/06/2021): Added automatically from request for surgery [id number] Infection 07/05/2020 Overview (05/06/2021): Last Assessment & [...] left lower extremity. - PM&R consulted. - Local Superintendent placed stump manager documentation / ampushield. Awaiting delivery of limb protector. - Patient not interested in prosthesis at this time. - PT/OT consults. - Plan for patient to return to her prior SNF when medically stable with ongoing PT/OT. - ID and Ortho following. COVID-19 07/05/2020 Overview (05/06/2021): Last Assessment & Plan: - Patient tested positive for COVID-19 on 06/21/20 at her usp ([facility] in [place], [place]). - She reports her only symptom [...] Plan: - As elsewhere Chronic respiratory failure 07/20/2019 Overview (05/06/2021): Last Assessment & Plan: - Per pt 2/2 COPD. No sings of acute exacerbation. 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 Moderate essential hypertension 06/28/2019 Overview (05/06/2021): Last Assessment & Plan: - Follows with cardiology. - Continue home amlodipine, metoprolol, lasix, spironolactone. - Switched olmesartan to losartan as not on formulary. Intractable seizure disorder 06/28/2019 Bipolar I disorder with anxious distress 019 Traumatic rhabdomyolysis 11/23/2017 Hyponatremia 11/23/2017 Overview (05/06/2021): Last Assessment & Plan: - Pt with history of hypoNa (per report, baseline mid 120- low 130s). - Na 126 on admission. No AMS. - TSH wnl. Cortisol 17. - Na stable. Resolved Problems Problem Noted Date Diagnosed Date Resolved Date Well child examination 07/20/201905/12 Full code status 07/20/2019 05/12/2021 Encounters Date Type Department Care Team Description 04/13/2025 4:13 PM CDT - 04/13/2025 11:59 PM CDT Hospital Encounter [facility] [place] [address] Keren Perdomo NP Discharge Disposition: Home or Self Care (Routine Discharge) 04/13/2025 Orders Only [facility] [place] [address] [place] [address] Keren Perdomo NP from Last 3 Months Social History Tobacco Use Types Packs/Day Years [...] Scan (General) 2017 COVID-19 Vaccine ( season) 2025 08/15/2020, 07/24/2020 Influenza Adult (#1) 2025 05/16/2019, 05/04/2018, 04/26/2017, Additional history exists RSV Immunization or 60+ Years (1 - 1-dose 75+ series) 12/02/2027 DTaP, Tdap and Td Vaccines (2 - Td or Tdap) 06/28/2029 06/28/2019 Pneumococcal Vaccine: 50+ Years Completed 07/25/2018, 05/04/2018, 04/04/2015 Zoster Vaccines Completed 01/25/2019, 10/26, 11/15/2018 Hepatitis A Vaccines Aged Out No long er eligible based on patient's age to complete this topic Meningococcal B Vaccine Aged Out No l onger eligible based on patient's age to complete this topic Meningococcal Vaccine Aged Out No trent carlotta eligible based on patient's age to complete this topic RSV Immunizations Under 20 Months Aged Out No longer eligible based on patient's age to complete this topic Procedures Procedure Name Priority Date/Time Associated Diagnosis Comments HC BASIC METABOLIC PANEL Routine 04/13/2025 1:59 PM CDT Impending cerebrovascular accident ([facility]) from Last 3 Months Results * (ABNORMAL) BASIC METABOLIC PANEL (04/13/2025 1:59 PM CDT) GLUCOSE 94 70 - 99 MG/DL 04/13/2025 4:58 PM CDT [facility] BUN 12 7 - 18 MG/DL 04/13/2025 4:58 PM CDT [facility] CREATININE S/P/B 0.52(L) 0.55 - 1.02 MG/DL 04/13/2025 4:58 PM CDT [facility] SODIUM S/P/B 131(L) 136 - 145 MMOL/L 04/13/2025 4:58 PM CDT [facility] POTASSIUM S/P/B 3.5 3.5 - 5.1 MMOL/L 04/13/2025 4:58 PM CDT [facility] CHLORIDE S/P/B 95(L) 97 - 115 MMOL/L 04/13/2025 4:58 PM CDT [facility] CO2 30.4 21 - 32 MMOL/L 04/13/2025 4:58 PM CDT [facility] CALCIUM S/P/B 8.6 8.5 - 10.1 MG/DL 04/13/2025 4:58 PM CDT [facility] ANION GAP 5.6 2 - 10 MMOL/L 04/13/2025 4:58 PM CDT [facility] BUN CREATININE RATIO 23.0 6 - 26 04/13/2025 4:58 PM CDT [facility] GFR ESTIMATE >90 >90 ML/MIN/1.7 3 M2 04/13/2025 4:58 PM CDT [facility] Comment: NOTE: eGFR is not calculated for patients <18 years of age or gender unknown. This is an estimated GFR calculation using the new CKD EPI creatinine equation without race and so does not require a correction factor for race. This estimated GFR should not be used for calculating drug doses. 04/13/2025 1:59 PM CDT Keren Perdomo NP LABORATORY Final Re sult [facility] [address] [place] [address], from Last 3 Months Additional Health Concerns Infection Onset Date Last Indicated ESBL - Extended Spectrum Beta-lactamase 05/09/20 21 05/09/2021 Insurance MEDICAID MEDICARE Care Teams Gamer Relationship Specialty Start Date End Date Marcia Gaines MD PCP - General 08/18/16
--- OUTSIDE RECORDS SUMMARY | 2025-06-25 11:21 | XMS_ITS | Clinical Summary ---
Author Organization [facility] Address [address] [place] [address] Care Team Providers Care Green Building Engineer Name Role Phone Jose Manuel Gruber MD Unavailable [phone] Hernando Velasquez MD Primary Care Provider [phone] Allergies Active Allergy Reactions Criticality Noted Date Comments Barbiturates Unknown,Other (See comments) Medium 09/13/2006 Diazepam Unknown,Other (See comments) Low 09/13/2006 Fish Containing Products Anaphylaxis High 07/05/2019 Iodine Unknown,Other (See comments) Low 09/13/2006 Latex Unknown 06/28/2019 Menthol Hives,Itching,Rash Medium 07/08/2022 [place]-3 Fatty Acids Unknown,Other (See comments) Low 12/12/2010 [...] (APRESOLINE) 25 mg tablet 12/26/19 25 Active Active Problems Problem Noted Date Diagnosed Date Visit for wound check 03/07/2025 Cardiac pacemaker in situ 02/21/2025 Overview (02/21/2025): Medtronic Micra2 AV Leadless Pacemaker. Dx; CHB. DOI 02/21/2025-Alberto. Ginny remote. Exercise hypoxemia 04/15/2022 Assessment & Plan (07/08/2022 2:39 PM HAM MARKER): I did recommend that the patient decrease [...] 01/07/2022 Assessment & Plan (07/08/2022 2:39 PM HAM MARKER): The patient does have some cough with [...] 01/07/2022 Assessment & Plan (07/08/2022 2:39 PM HAM MARKER): She was intolerant of CPAP therapy and [...] 07/05/2020 Assessment & Plan (07/11/2020 6:58 AM HAM MARKER): - Patient tested positive for COVID-19 on 06/21/20 at her long term ([facility] in [place], [place]). - She reports her only symptom [...] SNF. Assessment & Plan (07/07/2020 6:25 PM HAM MARKER): - Pt states she was actually tested [...] protocol Assessment & Plan (07/06/2020 11:59 AM HAM MARKER): - recommend getting records from SNF to establish exact date of first (+) COVID test. - pt likely has completed days of isolation. Assessment & Plan (07/06/2020 7:34 AM HAM MARKER): - Per report, pt was tested for [...] protocol Assessment & Plan (07/05/2020 5:40 PM HAM MARKER): - Per report, pt was tested for [...] 07/05/2020 Assessment & Plan (07/11/2020 6:57 AM HAM MARKER): History of open periprosthetic tibia/fibula fracture s/p [...] left lower extremity. - PM&R consulted. - Molder Pipe Covering placed stump chemist physical / ampushield. Awaiting delivery of limb protector. - Patient not interested in prosthesis at this time. - PT/OT consults. - Plan for patient to return to her prior SNF when medically stable with ongoing PT/OT. - ID and Ortho following. Assessment & Plan (07/07/2020 6:27 PM HAM MARKER): - History of open periprosthetic tibia/fibula fracture [...] extremity Assessment & Plan (07/06/2020 3:07 PM HAM MARKER): - Cellulitis vs subcutaneous infection vs OM [...] recs. Assessment & Plan (07/05/2020 6:03 PM HAM MARKER): - Cellulitis vs subcutaneous infection vs OM [...] (07/08/2020): Added automatically from request for surgery [id number] Abnormal x-ray of extremity 07/20/2019 Acute exacerbation of chronic low back pain 06/26 Biliary colic 07/20/2019 Chronic lumbosacral pain 07/20/2019 Chronic respiratory failure 07/20/2019 Assessment & Plan (07/08/2020 4:27 PM HAM MARKER): - Per pt 2/2 COPD. No sings of acute exacerbation. - Continue home flonase - Continue home albuterol prn - On home is on 4L O2 at baseline Assessment & Plan (07/07/2020 6:26 PM HAM MARKER): - Per pt 2/2 COPD. No sings of acute exacerbation. - Continue home flonase - Continue home albuterol prn - On baseline 4L O2 Assessment & Plan (07/06/2020 7:33 AM HAM MARKER): - Per pt 2/2 COPD. No sings of acute exacerbation. - Continue home flonase - Continue home albuterol prn - On baseline 4L O2 Assessment & Plan (07/05/2020 6:00 PM HAM MARKER): - Per pt 2/2 COPD. No sings of acute exacerbation. - Continue home flonase - Continue home albuterol prn - On baseline 4L O2 Closed displaced bimalleolar fracture of right l ower leg 07/20/2019 Assessment & Plan (07/05/2020 6:01 PM HAM MARKER): - As elsewhere Deep venous insufficiency 07/20/2019 [...] 06/28/2019 Assessment & Plan (07/08/2020 4:26 PM HAM MARKER): - Follows with cardiology. - Continue home amlodipine, metoprolol, lasix, spironolactone. - Switched olmesartan to losartan as not on formulary. Assessment & Plan (07/07/2020 6:26 PM HAM MARKER): - Follows with cardiology - Continue home amlodipine, metoprolol, lasix, spironolactone - Switched olmesartan to losartan as not on formulary Assessment & Plan (07/06/2020 3:04 PM HAM MARKER): - Follows with cardiology - Continue home amlodipine, metoprolol, lasix, spironolactone - Switched olmesartan to losartan as not on formulary Assessment & Plan (07/05/2020 5:58 PM HAM MARKER): - Follows with cardiology - Continue home amlodipine, metoprolol, lasix, spironolactone - Switch olmesartan to losartan as not on formulary Syncope due to sick sinus syndrome 06/28/2019 Open displaced comminuted fr acture of shaft of left tibia, type IIIA, IIIB, or IIIC 06/28/2019 Overview (06/28/2019): Added automatically from request for surgery [id number] Assessment & Plan (07/08/2020 4:27 PM HAM MARKER): - See above. 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 After hours, the ID fellow acquisition professional can be reached at [phone]. Assessment & Plan (07/05/2020 5:59 PM HAM MARKER): - L tibia and R ankle fractures s/p BRENNA in 06/2020 - Complicated by poor healing and multiple infections of L anterior leg wound - Pt of Dr. Shoemaker Hyponatremia 11/23/2017 Assessment & Plan (07/11/2020 6:59 AM HAM MARKER): - Pt with history of hypoNa (per report, baseline mid 120- low 130s). - Na 126 on admission. No AMS. - TSH wnl. Cortisol 17. - Na stable. Assessment & Plan (07/07/2020 6:26 PM HAM MARKER): - Pt with history of hypoNa (per report, baseline mid 120- low 130s). - Na 126 on admission. No AMS. - TSH wnl. Cortisol 17. - Diuretics were held and Na improved to 132. Restart when able. Assessment & Plan (07/06/2020 7:31 AM HAM MARKER): - Pt with history of hypoNa (per [...] kidney injury 07/20/2019 07/05/20 Hyperkalemia 07/20/2019 07/05/2020 Encounters Date Type Department Care Team Description 04/20/2025 Telephone [facility] Cardiology [address] [place] [address] Adithya Dominguez MD 04/18/2025 11:30 AM CDT Office Visit [facility] Cardiology [address] [place] [address] Vianca David NP Syncope due to sick sinus syndrome (HCC) (Primary Dx); Cardiac pacemaker in situ 04/18/2025 11:00 AM CDT Ancillary Procedure [facility] Cardiology [address] [place] [address] Atrial fibrillation, unspecified type (HCC) (Primary Dx); Cardiac pacemaker in situ; CHB (complete heart block) 04/17/2025 Telephone [facility] Cardiology [address] [place] [phone] Adithya Dominguez MD from Last 3 Months Immunizations Immunization [...] 5:20 PM CDT Respiratory Rate 18 07/08/2022 2:2 4 PM HAM MARKER Oxygen Saturation 99% 04/18/2025 11: 20 AM [...] Breast Cancer Screening-Mammogram 02/19/2024 023 Covid-19 Vaccine (2024-08 6 season) 2025 05/29/2021, 08/14/2020, 08/14/2020, Additional history exists Influenza Vaccine (#1) 2025 9, 05/04/2018, 04/26/2017, Additional history exists DTaP/Tdap/Td Vaccine (3 - Td or Tdap) 11/23/2033 11/24/2023, 06/28/2019 Pneumococcal vaccine 65+ Completed 018, 05/04/2018, 04/04/2015 Zoster Vaccine Completed 01/25/2019, 10/26, 11/15/2018 Hepatitis B Screening Completed 06/10/2019 Hepatitis C Screening Completed 06/10/2019 Medical Devices Implanted Type Area Non Emergency Services Ambulance Driver Device Identifier Shelf Expiration Date Model / Serial / Lot Synthes 223.581 Lcp Combi [id number] 8 Hole Limit Contact Taper End Plate Bone - S0 - [id number] Implanted:Qty: 1 on 06/28/2019 by Lo Laura DO at [facility] Plate Left: Tibia Synthes I 223.581 / 0 / 0 Synthes 212.106 3.5mm 2.9mm 20mm Self Tap Lock Stardrive Conical Head T15 Full - S0 - [id number] Implanted:Qty: 1 on 06/28/2019 by Lo Laura DO at [facility] Screw Left: Tibia Synthes I 212.106 / 0 / 0 Synthes 212.108 3.5mm 2.9mm 24mm Self Tap Lock Stardrive Conical Head Pelvis T15 - S0 - [id number] Implanted:Qty: 1 on 06/28/2019 by Lo Laura DO at [facility] Screw Left: Tibia Synthes I 212.108 / 0 / 0 Synthes 212.109 3.5mm 2.9mm 26mm Self Tap Lock Stardrive Conical Head T15 Full - S0 - [id number] Implanted:Qty: 1 on 06/28/2019 by Lo Laura DO at [facility] Screw Left: Tibia Synthes I 212.109 / 0 / 0 Synthes 212.104 3.5mm 2.9mm 16mm Self Tap Lock Stardrive Conical Head T15 Full - S0 - [id number] Implanted:Qty: 2 on 06/28/2019 by Lo Laura DO at [facility] Screw Left: Tibia Synthes I 212.104 / 0 / 0 Synthes 212.107 3.5mm 2.9mm 22mm Self Tap Lock Stardrive Conical Head T15 Full - S0 - [id number] Implanted:Qty: 1 on 06/28/2019 by Lo Laura DO at [facility] Screw Left: Tibia Synthes I 212.107 / 0 / 0 Synthes 212.103 3.5mm 2.9mm 14mm Self Tap Lock Stardrive Conical Head T15 Full - [id number] Implanted:Qty: 2 on 06/30/2019 by Jacobo Shoemaker MD at [facility] Left: Tibia Synthes I 212.103 / / Synthes 212.109 3.5mm 2.9mm 26mm Self Tap Lock Stardrive Conical Head T15 Full - [id number] Implanted:Qty: 2 on 06/30/2019 by Jacobo Shoemaker MD at [facility] Left: Tibia Synthes I 212.109 / / Synthes 212.101 3.5mm 2.9mm 10mm Self Tap Lock Stardrive Conical Head T15 Full - [id number] Implanted:Qty: 1 on 06/30/2019 by Jacobo Shoemaker MD at [facility] Left: Tibia Synthes I 212.101 / / Synthes 212.107 3.5mm 2.9mm 22mm Self Tap Lock Stardrive Conical Head T15 Full - [id number] Implanted:Qty: 1 on 06/30/2019 by Jacobo Shoemaker MD at [facility] Left: Tibia Synthes I 212.107 / / Synthes 204.840 3.5mm 6mm 40mm 2.5mm Self Tap Small Hexagonal Socket Low Profile - [id number] Implanted:Qty: 1 on 06/30/2019 by Jacobo Shoemaker MD at [facility] Left: Tibia Synthes I 204.840 / / Synthes 204.832 3.5mm 6mm 32mm 2.5mm Self Tap Small Hexagonal Socket Low Profile - [id number] Implanted:Qty: 1 on 06/30/2019 by Jacobo Shoemaker MD at [facility] Left: Tibia Synthes I 204.832 / / Synthes 241.351 Lcp 12mm [id number] .7mm 5 Hole Collar 1/3 Tubular Plate Bone - [id number] Implanted:Qty: 1 on 06/30/2019 by Jacobo Shoemaker MD at [facility] Left: Tibia Synthes I 241.351 / / Synthes 241.351 Lcp 12mm [id number] .7mm 5 Hole Collar 1/3 Tubular Plate Bone - [id number] Implanted:Qty: 1 on 06/30/2019 by Jacobo Shoemaker MD at [facility] Right: Ankle Synthes I 241.351 / / Synthes 204.826 3.5mm 6mm 26mm 2.5mm Self Tap Small Hexagonal Socket Low Profile - [id number] Implanted:Qty: 1 on 06/30/2019 by Jacobo Shoemaker MD at [facility] Right: Ankle Synthes I 204.826 / / Synthes 212.102 3.5mm 2.9mm 12mm Self Tap Lock Stardrive Conical Head T15 Full - [id number] Implanted:Qty: 1 on 06/30/2019 by Jacobo Shoemaker MD at [facility] Right: Ankle Synthes I 212.102 / / Synthes 212.114 3.5mm 2.9mm 35mm Self Tap Lock Stardrive Conical Head T15 Full - [id number] Implanted:Qty: 1 on 06/30/2019 by Jacobo Shoemaker MD at [facility] Right: Ankle Synthes I 212.114 / / Synthes 223.641 Lcp Combi [id number] 14 Hole Limit Contact Taper End Plate Bone - [id number] Implanted:Qty: 1 on 06/30/2019 by Jacobo Shoemaker MD at [facility] Left: Tibia Synthes I 223.641 / / Synthes 204.824 3.5mm 6mm 24mm 2.5mm Self Tap Small Hexagonal Socket Low Profile - [id number] Implanted:Qty: 2 on 06/30/2019 by Jacobo Shoemaker MD at [facility] Left: Tibia Synthes I 204.824 / / Synthes 212.104 3.5mm 2.9mm 16mm Self Tap Lock Stardrive Conical Head T15 Full - [id number] Implanted:Qty: 2 on 06/30/2019 by Jacobo Shoemaker MD at [facility] Left: Tibia Synthes I 212.104 / / Explanted Type Area Non Emergency Services Ambulance Driver Device Identifier Shelf Expiration Date Model / Serial / Lot Synthes 204.836 3.5mm 6mm 36mm 2.5mm Self Tap Small Hexagonal Socket Low Profile - [id number] Explanted:Qty: 1 on 06/30/2019 at [facility] Right: Ankle Synthes I 204.836 / / Synthes 212.117 3.5mm 2.9mm 40mm Self Tap Lock Stardrive Conical Head T15 Full - [id number] Explanted:Qty: 1 on 06/30/2019 at [facility] Right: Ankle Synthes I 212.117 / / Procedures Procedure Name Priority Date/Time Associated Diagnosis Comments DEVICE CHECK - IN OFFICE Routine 04/18/2025 10:50 AM CDT Cardiac pacemaker in situ CHB (complete heart block) SCREENING MAMMOGRAM BILATERAL W WILLIE Schedule Routine, Read Routine (OP Routine) 02/18/2023 1:39 PM CDT Screening mammogram, encounter for HEPATITIS PANEL, ACUTE Routine 06/10/2019 10:11 AM HAM MARKER from Last 3 Months or Most Recently Relevant to Health Maintenance Results * DEVICE CHECK - IN OFFICE (04/18/2025 10:50 AM CDT) Anatomical Region Laterality Modality Other Narrative 04/18/2025 8:47 PM CDT Medtronic Micra2 AV Leadless Pacemaker. Dx; CHB, PAF. DOI 02/21/2025-Alberto. Carelink remote. Supervising MD: Dr Deshpande. Patient seen in device clinic today s/p Micra AVR pacemaker implant. Interrogation of VDD Leadless Pacemaker demonstrated appropriate device function. Battery function-3.14 V, >10.0 years remaining to ASHWINI. Electrode impedance, capture threshold, and measured r-wave are stable and appropriate. Presenting rhythm: VS, regular (SR) 76 bpm. Vpaced only-0.7%.%. AM-LINE PRODUCTION COOK 2.3%. VS only-97.1%. Medications;Lovenox, Lopressor. No programming changes made to device settings. See scanned report. Office pacemaker f/u due in 13 months. Carelink remote f/u . Carelink remote monitor ordered and is being [facility] to [facility] Luana Decker RN Adithya Dominguez MD [facility] CARDIAC SERVICES PROC EDURES Final Result * Screening Mammogram Bilateral W [...] age 40, based on guidelines of the [employer] (ACR Practice Parameter for the Performance of Screening and Diagnostic Mammography) and [employer]. For women [...] * Hepatitis panel, acute (06/10/2019 10:11 AM HAM MARKER) HepBsAg NONREACT NONREACTIVE [facility] Comment: Siemens CentaurXP using SUSU (chemiluminescent immunoassay) technology. NONREACTIVE: IgM antibodies to Hepatitis B Surface antigen not detected. REACTIVE: IgM antibodies to Hepatitis B Surface antigen detected. Reactive results will be confirmed by neutralization testing. HBsAb qn <3.10 mIU/mL [facility] Comment: Siemens CentaurXP using SUSU (chemiluminescent immunoassay) technology. 9.99 IU/L or less.....NONREACTIVE: IgM antibodies to Hepatitis B Surface antibody are not detected. 10.00 IU/L or greater..REACTIVE: IgM antibodies to Hepatitis B Surface antibody are detected. Hep B core IgM NONREACT NONREACTIVE [facility] Comment: Siemens CentaurXP using SUSU (chemiluminescent immunoassay) technology. NONREACTIVE: IgM antibodies to Hepatitis B Core antigen not detected. EQUIVOCAL: IgM antibodies to Hepatitis B Core antigen may or may not be present. Obtain a new specimen and retest. REACTIVE: IgM antibodies to Hepatitis B Core antigen detected. Hep A IgM NONREACT NONREACTIVE [facility] Comment: Siemens CentaurXP using SUSU (chemiluminescent immunoassay) technology. NONREACTIVE: IgM antibodies to Hepatitis A not detected. This does not exclude possibility of exposure to Hepatitis A or early acute infection. EQUIVOCAL:IgM antibodies to Hepatitis A may or may not be present. Suggest recollection and retest. REACTIVE: Antibodies to Hepatitis A detected. Hep C Ab NONREACT NONREACTIVE [facility] Comment: Siemens CentaurXP using SUSU (chemiluminescent immunoassay) [...] real-time PCR method. 06/10/2019 10:1 1 AM HAM MARKER 06/10/2019 10:47 AM HAM MARKER Narrative Resulting Agency Comment IN Destiny Pereira MD LAB MICROBIOLOGY - GENERAL ORDERABLES Final Result [facility] [address] [place] [id number], [facility] [phone] from Last 3 Months or Most Recently Relevant to Health Maintenance Insurance [facility] DEPARTMENTRA [facility] ADVANTRA IDWV [facility] IDWV MEDICARE [facility] Address: [address] [address] [place] [address] Advance Directives For more information, please contact: [phone] Documents on File Type Date Recorded Patient Lawn Sprinkler Servicer Expl anation ADVANCE DIRECTIVE 07/14/2020 6:58 AM * Full Code (Latest Code Status on File) Date Activated Date Inactivated Comments 07/05/2020 4:11 PM 07/12/2020 7:15 PM * Full Code Date Activated Date Inactivated Comments 06/28/2019 11:55 PM 07/06/2019 8:59 PM Care Teams Green Building Engineer Relationship Specialty Start Date End Date Chadian, Hernando Naik MD PCP - General Internal Medicine 01/07/22 Jose Manuel Gruber MD Fellow Orthopedic Surgery 07/06/19
[2025-06-25 11:25] LABS: Alanine Aminotransferase 21 U/L (6-35); Albumin Level 4.4 g/dL (3.5-5.1); Alkaline Phosphatase 78 U/L (38-126); Anion Gap 6 mmol/L (4-12); Aspartate Amino Transferase 27 U/L (14-36); Bilirubin,Total 0.1 mg/dL (0.2-1.3); Blood Urea Nitrogen 20 mg/dL (7-17); Calcium 8.9 mg/dL (8.4-10.2); Carbon Dioxide 30 mmol/L (22-30); Chloride 85 mmol/L (98-107); Estimated CRCL calculation 73 ml/min; Estimated Glomerular Filt Rate > 60; Glucose 107 mg/dL (65-110); Potassium 4.9 mmol/L (3.4-5.0); Sodium 121 mmol/L (137-145); Total Protein 7.6 g/dL (6.3-8.2)
[2025-06-25] MEDS: SODIUM CHLORIDE 0.9% IV 1,000 ML 999 ML IV CONT (12:56)
[2025-06-25] MEDS: oxyCODONE HCL (*CRX) 5 MG TAB IR PO (15:56)
== END 2025-06-25 20:51 ==
PROVIDERS: Emergency Medicine
DX: E87.1 Hypo-osmolality and hyponatremia (principal); Z86.73 Personal history of transient ischemic attack (TIA), and cerebral infarction without residual deficits; Z79.01 Long term (current) use of anticoagulants; J96.11 Chronic respiratory failure with hypoxia; Z99.81 Dependence on supplemental oxygen; Z87.442 Personal history of urinary calculi; D64.9 Anemia, unspecified; K21.9 Gastro-esophageal reflux disease without esophagitis; E78.5 Hyperlipidemia, unspecified; I10 Essential (primary) hypertension; G47.30 Sleep apnea, unspecified; F41.9 Anxiety disorder, unspecified; F32.A Depression, unspecified; J45.909 Unspecified asthma, uncomplicated
CPT/HCPCS: 36415; 80053; 85025; 96360; 99283; A9270; J7030

== ENCOUNTER 2025-07-10 18:44 | Emergency (ER) | payer MEDICARE, MEDICAID, SELFPAY ==
[2025-07-10] VITALS (42 sets, daily range): BP systolic 122–202; BP diastolic 42–84; PULSE 53–80; RESP 8–20; TEMP 36.3–36.9; O2SAT 95–100
--- NOTE | 2025-07-10 19:29 | ED.RECABL ---
HPI - Recheck/Abnormal Lab/Rx General Chief Complaint: Recheck/Abnormal Lab/Rx Stated Complaint: LOW H&H Time Seen by Provider: 07/10/25 19:05 History of Present Illness HPI narrative: 74-year-old female with extensive past medical history including chronic atrial fibrillation for status post pacemaker insertion chronically anticoagulated with Xarelto. She has a history of diabetes, CHF, chronic hyponatremia on salt tablets, prior CVA, left BKA. chronic back pain. Patient presents to the emergency department today after she had abnormal laboratory studies at her skilled care facility. Patient reportedly had a low hemoglobin. On review of the EMR patient's hemoglobin typically runs around 8-9 and we did not know what her outside hemoglobin level was. Patient is asymptomatic aside from some chronic back pain that she states she takes tizanidine 4. She is requesting something different is an 80 today. No change in her back pain. No other symptoms such as chest pain, difficulty breathing. Patient is on 4 L nasal cannula chronically without any increased oxygen requirements or dyspnea. Patient denies any tarry or dark bowel movements. No blood in her urine or stool. No difficulties going to the bathroom any abdominal pain, chest pain, shortness a breath, nausea, vomiting, hematuria or hematochezia. She is otherwise well-appearing and not in any distress and does not know what her hemoglobin was but knows she was sent in to get evaluated for that. Related Data Home Medications ?Medication ?Instructions ?Recorded ?Confirmed ?Last Taken ?Type fluticasone propionate 50 1 spray intranasal DAILY 09/09/19 03/27/25 03/27/25 History mcg/actuation nasal spray,suspension docusate sodium 100 mg tablet 200 mg PO BID Constipation 05/31/20 03/27/25 03/27/25 History amlodipine 10 mg tablet 10 mg PO DAILY 04/23/24 03/27/25 03/27/25 History bisacodyl 5 mg tablet,delayed 10 mg PO HS PRN Constipation 04/23/24 03/27/25 Unknown History release (Dulcolax (bisacodyl)) guaifenesin 1,200 mg tablet, 1,200 mg PO Q12H 04/23/24 03/27/25 03/27/25 History extended release 12 hr (Mucinex) memantine 5 mg tablet 5 mg PO BID 09/03/27/25 03/27/25 History ondansetron HCl 4 mg tablet 4 mg PO TID 04/23/24 03/27/25 03/27/25 History isosorbide mononitrate 30 mg 30 mg PO DAILY 08/06/24 03/27/25 03/27/25 History tablet,extended release 24 hr lidocaine 5 % topical patch 2 patch topical HS 08/06/24 03/27/25 03/26/25 History (Lidoderm) magnesium hydroxide 400 mg/5 mL 30 ml PO DAILY PRN constipation 08/06/24 03/27/25 Unknown History oral suspension (Gentle Laxative (magnesium hydroxide)) atorvastatin 10 mg tablet (Lipitor) 10 mg PO HS 01/18/25 03/27/25 03/26/25 History buspirone 10 mg tablet 10 mg PO TID 01/18/25 03/27/25 03/27/25 History clonazepam 0.5 mg tablet 0.5 mg PO Q12H 01/18/25 03/27/25 03/27/25 History famciclovir 250 mg tablet 250 mg PO Q12H 01/18/25 03/27/25 03/27/25 History magnesium citrate 300 ml PO DAILY PRN constipation 01/18/25 03/27/25 Unknown History primidone 50 mg tablet See Rx Instructions .Route .COMPLEX 01/18/25 03/27/25 03/27/25 History sennosides 8.6 mg-docusate sodium 2 tab-cap PO BID 01/18/25 03/27/25 03/27/25 History 50 mg tablet (Senna Plus) spironolactone 25 mg tablet 25 mg PO DAILY 01/18/25 03/27/25 03/27/25 History famotidine 10 mg tablet (Heartburn 10 mg PO DAILY 02/08/25 03/27/25 03/27/25 History Relief (famotidine)) tizanidine 2 mg tablet 2 mg PO Q12H 02/08/25 03/27/25 03/27/25 History polyethylene glycol 3350 17 17 g PO DAILY 02/19/25 03/27/25 03/27/25 History gram/dose oral powder polyvinyl alcohol 1.4 % eye drops 2 drp EACH EYE BID 02/19/25 03/27/25 03/27/25 History (Artificial Tears (polyvinyl alcohol)) sodium chloride 1,000 mg soluble 1,000 mg PO BID 02/19/25 03/27/25 03/27/25 History tablet venlafaxine 37.5 mg 37.5 mg PO DAILY 03/27/25 03/27/25 03/27/25 History capsule,extended release 24 hr (Effexor XR) Allergies Allergy/AdvReac Type Severity Reaction Status Date / Time Fish Containing Products Allergy Severe Dyspnea / Verified 07/10/25 21:46 SOB Iodinated Contrast Media Allergy Intermediate HIVES, RED Verified 07/10/25 21:46 FACE iodine Allergy Unknown Unknown Verified 07/10/25 21:46 Barbiturates Allergy Unknown Verified 07/10/25 21:46 bupivacaine Allergy Unknown Verified 07/10/25 21:46 diazepam (From Valium) Allergy Unknown Verified 07/10/25 21:46 latex Allergy Unknown Verified 07/10/25 21:46 menthol Allergy Unknown Verified 07/10/25 21:46 Sulfa (Sulfonamide Allergy Unknown Verified 07/10/25 21:46 Antibiotics) thiopental (From Pentothal) Allergy Unknown Verified 07/10/25 21:46 wool Allergy Unknown Verified 07/10/25 21:46 [facility] Past Medical History Medical History History of atrial fibrillation Failure to thrive CVA (cerebral vascular accident) Chronic anticoagulation Kidney stone Chronic anemia Chronic respiratory failure with hypoxia, on home oxygen therapy Bipolar disorder Gastroesophageal reflux disease Hyperlipidemia Hypertension Obstructive sleep apnea intolerant to CPAP Left tibial fracture Chronic hyponatremia Shingles Anxiety Depression Gastroparesis Diverticulitis Asthma Epilepsy no longer on medication Seasonal allergies Surgical History Surgical History History of left above knee amputation History of right shoulder replacement History of cholecystectomy History of left knee replacement History of hysterectomy History of open reduction and internal fixation (ORIF) procedure Left tibia and right ankle. History of appendectomy History of tonsillectomy Family History Family History Mother Suicide Depression Heart disease Hypertension Heart failure Sibling Suicide Father Diabetes mellitus Emphysema lung Social History Social History Social History: Surrogate medical decision maker: Martina Rodney, daughter. Code status: Full code. Smoking status: Never smoker Second hand tobacco smoke exposure: No Alcohol intake: former Substance use: never Substance use type: does not use Lack of Transportation: No Lack of Food: Never True Current Housing: I Have Housing Concerned About Future Housing: No Difficulty Paying Gas/Electric Bills: No Difficulty Paying for Meds: No Currently Unemployed: No Education: High School Diploma/GED Difficulty w/ Childcare or Family Care: No Living arrangements: residential village Occupation/Education: retired Spiritual care concerns: No Agree to blood products: No Exam Narrative: GENERAL: [Well-appearing, well-nourished, and in no acute distress.] HEAD: [Normocephalic, atraumatic.] EYES: [PERRLA and EOMI.] ENT: Nares clear, no rhinorrhea or epistaxis. Mucous membranes pale but moist. NECK: Supple. CHEST: [Clear to auscultation. No respiratory distress.] HEART: [Regular rate and rhythm]. No murmur heard. [Normal peripheral pulses.] ABDOMEN: [Soft, nondistended], [nontender], [No rigidity or guarding] EXTREMITIES: left BKA, normal range of motion otherwise. No extremity edema. SKIN: Warm, dry, no rash. NEURO: [No focal deficits]. Alert and oriented [x3.] PSYCH: [Normal mood and affect.] Course Vital Signs Vital signs: Vital Signs Temperature 36.3 C L 07/10/25 18:45 Pulse Rate 65 07/10/25 18:45 Respiratory Rate 18 07/10/25 18:45 Blood Pressure 128/48 L 07/10/25 18:45 Pulse Oximetry 100 07/10/25 18:45 Oxygen Delivery Nasal Cannula 07/10/25 18:45 Oxygen Flow Rate 4 07/10/25 18:45 Temperature 36.9 C 07/11/25 01:19 Pulse Rate 71 07/11/25 01:19 Respiratory Rate 15 07/11/25 01:19 Blood Pressure 148/71 H 07/11/25 01:19 Pulse Oximetry 100 07/11/25 01:19 Oxygen Delivery Nasal Cannula 07/10/25 18:45 Oxygen Flow Rate 4 07/10/25 18:45 MDM MDM Narrative Medical decision making narrative: 74-year-old female with extensive past medical history including chronic atrial fibrillation for status post pacemaker insertion chronically anticoagulated with Xarelto. She has a history of diabetes, CHF, chronic hyponatremia on salt tablets, prior CVA, left BKA. chronic back pain. Patient presents to the emergency department today after she had abnormal laboratory studies at her skilled care facility. Patient reportedly had a low hemoglobin. On review of the EMR patient's hemoglobin typically runs around 8-9 and we did not know what her outside hemoglobin level was. Patient is asymptomatic aside from some chronic back pain that she states she takes tizanidine 4. She is requesting something different is an 80 today. No change in her back pain. No other symptoms such as chest pain, difficulty breathing. Patient is on 4 L nasal cannula chronically without any increased oxygen requirements or dyspnea. Patient denies any tarry or dark bowel movements. No blood in her urine or stool. No difficulties going to the bathroom any abdominal pain, chest pain, shortness a breath, nausea, vomiting, hematuria or hematochezia. She is otherwise well-appearing and not in any distress and does not know what her hemoglobin was but knows she was sent in to get evaluated for that. Patient is otherwise well-appearing not any acute distress. she has no complaints aside from her chronic back pain. She has no evidence of active bleeding. Hemodynamically stable without any tachycardia, fever, tachypnea, blood pressure concerns. She is on her baseline 4 L nasal cannula. patient is compliant with her medications and has not missed any dosages of her salt tablets or her Xarelto. Will repeat H&H and basic laboratory studies as well as coag panel and type and screening K she needs blood transfusion. Patient has no complaints of abdominal pain, chest pain, shortness a breath or any bleeding no indications for imaging at this time. Patient's hemoglobin came back at 7.0. Given the borderline hemoglobin and anemia we will transfuse 1 packed red blood cell. CMP shows chronic hyponatremia and hypochloremia. Patient has no symptoms of this and already follows regularly with Nephrology for this and take salt tablets. No need for further investigation or admission at this time given patient is asymptomatic. Upon completion of transfusion patient will be safe for discharge back to the facility. One PRBC ordered and patient transportation arranged. Differential Diagnosis Differential Diagnosis: Anemia, iron deficiency, chronic kidney disease, electrolyte imbalances Lab Data MDM Lab Attestation statement: I personally reviewed the patient's lab results. 07/10/25 20:01 07/10/25 20:01 Labs: Lab Results 07/10/25 Range/Units 20:01 WBC 6.1 (4.5-10.0) K/mm3 RBC 2.75 L (4.2-5.4) M/mm3 Hgb 7.0 L (12.0-15.0) g/dL Hct 21.5 L (37.0-47.0) % MCV 78.2 L (80-100) fl MCH 25.5 L (26-34) pg MCHC 32.6 (32-36) g/dl RDW 17.5 H (11.5-14.5) % Plt Count 226 (150-375) k/mm3 MPV 10.5 H (7.4-10.4) fl Immature Gran % (Auto) 0.2 (0-0.5) % Neut % (Auto) 67.1 (45.5-73.1) % Lymph % (Auto) 16.1 L (18.3-44.2) % Robertson % (Auto) 11.8 H (2.6-8.5) % Eos % (Auto) 4.3 (0-4.4) % Baso % (Auto) 0.5 (0.2-1.2) % Lymph # (Auto) 0.98 (0.9-3.2) K/mm3 Robertson # (Auto) 0.7 H (0.1-0.6) K/mm3 Eos # (Auto) 0.3 (0-0.3) K/mm3 Baso # (Auto) 0.0 (0.0-0.1) K/mm3 Abs Immat Gran (auto) 0.01 (0.00-0.031) K/mm3 Absolute Neuts (auto) 4.1 (1.3-6.7) K/mm3 Absolute Nucleated RBC 0.000 (0.0-0.012) K/mm3 Nucleated RBC % 0.0 (0.0-0.2) % PT 21.1 H (11.1-14.7) Seconds INR 1.8 APTT 45.6 H (22.3-36.8) Seconds Sodium 120 L (137-145) mmol/L Potassium 4.6 (3.4-5.0) mmol/L Chloride 86 L (98-107) mmol/L Carbon Dioxide 28 (22-30) mmol/L Anion Gap 6 (4-12) mmol/L BUN 17 (7-17) mg/dL Creatinine 0.48 L (0.7-1.0) mg/dL Estim Creat Clear Calc 87 ml/min Estimated GFR > 60 (59 - ) Glucose 114 H (65-110) mg/dL Calcium 8.1 L (8.4-10.2) mg/dL Total Bilirubin 0.3 (0.2-1.3) mg/dL AST 29 (14-36) U/L ALT 17 (6-35) U/L Alkaline Phosphatase 70 (38-126) U/L Total Protein 6.3 (6.3-8.2) g/dL Albumin 3.6 (3.5-5.1) g/dL Blood Type A Positive Antibody Screen Negative Crossmatch See Detail Discharge Plan Discharge Clinical Impression: Acute on chronic anemia, Chronic hyponatremia Patient Disposition: NH Intermediate/Asst Living Condition: Stable Instructions: Antibiotic Form, Anemia (ED) Additional Instructions: slightly low hemoglobin compared to baseline. did receive a blood transfusion here. Chronic sodium and chloride deficiency not needing any emergent attention at this time. Follow-up with regular doctors and care providers about this. return with any emergent symptoms or new concerns. Patient Language: Welsh Prescriptions: No Action docusate sodium 100 mg Tablet 200 mg PO BID isosorbide mononitrate 30 mg tablet extended release 24 hr 30 mg PO DAILY lidocaine [Lidoderm] 5 % adhesive patch,medicated 2 patch topical HS Patient Comments: left shoulder Rx Instructions: leave on most painful area for up to 12 hrs magnesium hydroxide [Gentle Laxative (mag hydrox)] 400 mg/5 mL suspension 30 ml PO DAILY PRN (Reason: constipation) Xarelto 20 mg Tablet 20 mg PO DAILY@1700 Qty: 60 0RF oxycodone-acetaminophen 5-325 mg Tablet 1 tablet PO Q8H PRN (Reason: Pain Rated 7-10) Qty: 10 0RF irbesartan 150 mg Tablet 300 mg PO QAM Qty: 30 0RF primidone 50 mg tablet See Rx Instructions .ROUTE .COMPLEX Rx Instructions: 200 MG PO BID; spironolactone 25 mg tablet 25 mg PO DAILY buspirone 10 mg tablet 10 mg PO TID clonazepam 0.5 mg tablet 0.5 mg PO Q12H magnesium citrate Solution 300 ml PO DAILY PRN (Reason: constipation) famciclovir 250 mg tablet 250 mg PO Q12H atorvastatin [Lipitor] 10 mg tablet 10 mg PO HS sennosides-docusate sodium [Senna Plus] 8.6-50 mg tablet 2 tab-cap PO BID tizanidine 2 mg tablet 2 mg PO Q12H famotidine [Heartburn Relief (famotidine)] 10 mg Tablet 10 mg PO DAILY ipratropium-albuterol 0.5 mg-3 mg(2.5 mg base)/3 mL Solution For Nebulization 3 ml inhalation Q6HRT PRN (Reason: Wheezing) Qty: 30 0RF fluticasone propionate 50 mcg/actuation Ernest,Suspension 1 spray INTRANASAL DAILY ondansetron HCl 4 mg tablet 4 mg PO TID amlodipine 10 mg tablet 10 mg PO DAILY bisacodyl [Dulcolax (bisacodyl)] 5 mg Tablet,Delayed Release (Dr/Ec) 10 mg PO HS PRN (Reason: Constipation) memantine 5 mg tablet 5 mg PO BID guaifenesin [Mucinex] 1,200 mg Tablet Extended Release 12hr 1,200 mg PO Q12H pregabalin [Lyrica] 150 mg Capsule 150 mg PO BID Qty: 14 0RF polyethylene glycol 3350 17 gram/dose powder 17 g PO DAILY polyvinyl alcohol [Artificial Tears (polyvin alc)] 1.4 % drops 2 drp EACH EYE BID sodium chloride 1,000 mg tablet,soluble 1,000 mg PO BID furosemide 20 mg Tablet 20 mg PO BID 30 Days Qty: 60 0RF venlafaxine [Effexor XR] 37.5 mg capsule,extended release 24hr 37.5 mg PO DAILY hydralazine 10 mg tablet 25 mg PO Q8H Qty: 30 0RF Follow-up/Referrals: UNKNOWN,DOCTOR [Primary Care Provider] Stand Alone Forms: Correction Discharge
[2025-07-10 20:06] LABS: Hematocrit 21.5 % (37.0-47.0); Hemoglobin 7.0 g/dL (12.0-15.0); Immature Granulocyte Percent A 0.2 % (0-0.5); Lymphocytes Absolute Auto 0.98 K/mm3 (0.9-3.2); Mean Corpuscular HGB Conc 32.6 g/dl (32-36); Mean Corpuscular Hemoglobin 25.5 pg (26-34); Mean Corpuscular Volume 78.2 fl (80-100); Nucleated Red Blood Cells Absolute Auto 0.000 K/mm3 (0.0-0.012); Nucleated Red Blood Cells Perc 0.0 % (0.0-0.2); Platelet Count Result 226 k/mm3 (150-375); Red Blood Count 2.75 M/mm3 (4.2-5.4); White Blood Count 6.1 K/mm3 (4.5-10.0)
[2025-07-10 20:19] LABS: INR 1.8; Prothrombin Time 21.1 Seconds (11.1-14.7)
[2025-07-10 20:20] LABS: Partial Thromboplastin Time 45.6 Seconds (22.3-36.8)
[2025-07-10 20:29] LABS: Alanine Aminotransferase 17 U/L (6-35); Albumin Level 3.6 g/dL (3.5-5.1); Alkaline Phosphatase 70 U/L (38-126); Anion Gap 6 mmol/L (4-12); Aspartate Amino Transferase 29 U/L (14-36); Bilirubin,Total 0.3 mg/dL (0.2-1.3); Blood Urea Nitrogen 17 mg/dL (7-17); Calcium 8.1 mg/dL (8.4-10.2); Carbon Dioxide 28 mmol/L (22-30); Chloride 86 mmol/L (98-107); Estimated CRCL calculation 87 ml/min; Estimated Glomerular Filt Rate > 60; Glucose 114 mg/dL (65-110); Potassium 4.6 mmol/L (3.4-5.0); Sodium 120 mmol/L (137-145); Total Protein 6.3 g/dL (6.3-8.2)
[2025-07-10] MEDS: TUBING, BLOOD SET 1 EACH XX (21:44)
[2025-07-10] MEDS: SODIUM CHLORIDE 0.9% IV 250 ML 30 ML IV CONT (21:44)
[2025-07-11 00:16] VITALS: BP 182/66
[2025-07-11 00:18] VITALS: PULSE 77
--- NOTE | 2025-07-11 00:23 | PC.NURSE ---
EDP called posison control. EDP to add PTT/PT INR. Redraw in 4 hours for Tylenol level.
[2025-07-11 00:30] VITALS: PULSE 71; RESP 13; O2SAT 100
[2025-07-11 00:45] VITALS: BP 148/71; PULSE 71; RESP 15; TEMP 36.9; O2SAT 100
--- NOTE | 2025-07-11 01:17 | PC.NURSE ---
This RN called Jason and updated about pts discharge and ETA back to the facility
[2025-07-11 01:19] VITALS: BP 148/71; PULSE 71; RESP 15; TEMP 36.9; O2SAT 100
== END 2025-07-11 01:23 ==
PROVIDERS: Emergency Provider Student in an Organized Health Care Education/Training Program
DX: D64.9 Anemia, unspecified (principal); E87.1 Hypo-osmolality and hyponatremia; I48.20 Chronic atrial fibrillation, unspecified; I50.9 Heart failure, unspecified; I11.0 Hypertensive heart disease with heart failure; E78.5 Hyperlipidemia, unspecified; J96.11 Chronic respiratory failure with hypoxia; Z99.81 Dependence on supplemental oxygen; E11.43 Type 2 diabetes mellitus with diabetic autonomic (poly)neuropathy; K31.84 Gastroparesis; K21.9 Gastro-esophageal reflux disease without esophagitis; F31.9 Bipolar disorder, unspecified; F41.9 Anxiety disorder, unspecified; Z95.0 Presence of cardiac pacemaker; Z96.652 Presence of left artificial knee joint; Z96.611 Presence of right artificial shoulder joint; Z86.73 Personal history of transient ischemic attack (TIA), and cerebral infarction without residual deficits; Z87.442 Personal history of urinary calculi; Z89.512 Acquired absence of left leg below knee; Z89.612 Acquired absence of left leg above knee; Z90.49 Acquired absence of other specified parts of digestive tract; Z90.710 Acquired absence of both cervix and uterus; Z79.01 Long term (current) use of anticoagulants; Z79.899 Other long term (current) drug therapy
CPT/HCPCS: 36415; 36430; 80053; 85025; 85610; 85730; 86850; 86900; 86901; 86923; 96360; 96361; 99285; A9270; J7050; P9016

== ENCOUNTER 2025-07-18 11:17 | Emergency (ER) | payer MEDICARE, OTHER, SELFPAY ==
--- NOTE | ~2025-07-18 | XR_ITS ---
EXAMINATION: XR chest 2V DATE: 07/18/2025 12:23 INDICATION: Increasing weakness TECHNIQUE: frontal and lateral views of the chest were obtained. COMPARISON: Chest radiograph dated 04/25/2025 FINDINGS: The lungs remain clear with no focal airspace opacities, pulmonary edema, pleural effusion or pneumothorax. Heart size within normal limits for AP technique. Mitral annular calcific lesion. Unchanged likely intraventricular hand tacker. Atherosclerotic aorta. Mild thoracic spondylosis. IMPRESSION: 1. No acute cardiopulmonary disease. Reviewed, dictated and finalized at location [facility]. [facility]
[2025-07-18 11:25] VITALS: TEMP 36.7
--- NOTE | 2025-07-18 11:33 | ECG_ITS ---
Test Date: 2025-07-18 11:55:22 Measurements Intervals [place] Rate: 75 P: 43 SD: 187 QRS: -27 QRSD: 87 T: 50 QT: 401 QTc: 449 Interpretive Statements SINUS RHYTHM POSSIBLE LEFT ATRIAL ENLARGEMENT DELAYED PRECORDIAL R/S TRANSITION LEFT VENTRICULAR HYPERTROPHY HIGH LATERAL INFARCT, AGE INDETERMINATE BASELINE ARTIFACT- V2 ABNORMAL ECG Compared to ECG 04/25/2025 09:25:16 NO SIGNIFICANT CHANGE Electronically Signed On 07-18-2025 12:12:07 HVAC SERVICE TECHNICIAN by Balaji Gomez D.O.
--- NOTE | 2025-07-18 11:39 | PC.NURSE ---
Pt a difficult stick for IV access and blood draw. Vascular access called.
[2025-07-18 12:14] LABS: Hematocrit 29.3 % (37.0-47.0); Hemoglobin 9.4 g/dL (12.0-15.0); Immature Granulocyte Percent A 0.9 % (0-0.5); Lymphocytes Absolute Auto 1.54 K/mm3 (0.9-3.2); Mean Corpuscular HGB Conc 32.1 g/dl (32-36); Mean Corpuscular Hemoglobin 26.0 pg (26-34); Mean Corpuscular Volume 81.2 fl (80-100); Nucleated Red Blood Cells Absolute Auto 0.000 K/mm3 (0.0-0.012); Nucleated Red Blood Cells Perc 0.0 % (0.0-0.2); Platelet Count Result 333 k/mm3 (150-375); Red Blood Count 3.61 M/mm3 (4.2-5.4); White Blood Count 7.5 K/mm3 (4.5-10.0)
--- NOTE | 2025-07-18 12:28 | ED.GENADULT ---
HPI - General Adult General Chief complaint: Recheck/Abnormal Lab/Rx Stated complaint: abn labs Time Seen by Provider: 07/18/25 12:11 Source: patient and EMS Mode of arrival: EMS History of Present Illness HPI narrative: 74 years old white female came from [facility] by ambulance telling me that her blood workup on Wednesday showed low H/ H and low sodium. Patient is telling me that she had 1 unit of blood transfusion 1 week ago. History of porphyria, atrial fibrillation on Xarelto, last colonoscopy over 1 year ago. Patient denies any fever chills nausea vomiting abdominal pain chest pain shortness of breath. Her main complaint is chronic lower back pain and would like to get something for it right now. Related Data Home Medications ?Medication ?Instructions ?Recorded ?Confirmed ?Last Taken ?Type fluticasone propionate 50 1 spray intranasal DAILY 09/09/19 03/27/25 03/27/25 History mcg/actuation nasal spray,suspension docusate sodium 100 mg tablet 200 mg PO BID Constipation 05/31/20 03/27/25 03/27/25 History amlodipine 10 mg tablet 10 mg PO DAILY 04/23/24 03/27/25 03/27/25 History bisacodyl 5 mg tablet,delayed 10 mg PO HS PRN Constipation 04/23/24 03/27/25 Unknown History release (Dulcolax (bisacodyl)) guaifenesin 1,200 mg tablet, 1,200 mg PO Q12H 04/23/24 03/27/25 03/27/25 History extended release 12 hr (Mucinex) memantine 5 mg tablet 5 mg PO BID 04/23/24 03/27/25 03/27/25 History ondansetron HCl 4 mg tablet 4 mg PO TID 04/23/24 03/27/25 03/27/25 History isosorbide mononitrate 30 mg 30 mg PO DAILY 08/06/24 03/27/25 03/27/25 History tablet,extended release 24 hr lidocaine 5 % topical patch 2 patch topical HS 08/06/24 03/27/25 03/26/25 History (Lidoderm) magnesium hydroxide 400 mg/5 mL 30 ml PO DAILY PRN constipation 08/06/24 03/27/25 Unknown History oral suspension (Gentle Laxative (magnesium hydroxide)) atorvastatin 10 mg tablet (Lipitor) 10 mg PO HS 01/18/25 03/27/25 03/26/25 History buspirone 10 mg tablet 10 mg PO TID 01/18/25 03/27/25 03/27/25 History clonazepam 0.5 mg tablet 0.5 mg PO Q12H 01/18/25 03/27/25 03/27/25 History famciclovir 250 mg tablet 250 mg PO Q12H 01/18/25 03/27/25 03/27/25 History magnesium citrate 300 ml PO DAILY PRN constipation 01/18/25 03/27/25 Unknown History primidone 50 mg tablet See Rx Instructions .Route .COMPLEX 01/18/25 03/27/25 03/27/25 History sennosides 8.6 mg-docusate sodium 2 tab-cap PO BID 01/18/25 03/27/25 03/27/25 History 50 mg tablet (Senna Plus) spironolactone 25 mg tablet 25 mg PO DAILY 01/18/25 03/27/25 03/27/25 History famotidine 10 mg tablet (Heartburn 10 mg PO DAILY 02/08/25 03/27/25 03/27/25 History Relief (famotidine)) tizanidine 2 mg tablet 2 mg PO Q12H 02/08/25 03/27/25 03/27/25 History polyethylene glycol 3350 17 17 g PO DAILY 02/19/25 03/27/25 03/27/25 History gram/dose oral powder polyvinyl alcohol 1.4 % eye drops 2 drp EACH EYE BID 02/19/25 03/27/25 03/27/25 History (Artificial Tears (polyvinyl alcohol)) sodium chloride 1,000 mg soluble 1,000 mg PO BID 02/19/25 03/27/25 03/27/25 History tablet venlafaxine 37.5 mg 37.5 mg PO DAILY 03/27/25 03/27/25 03/27/25 History capsule,extended release 24 hr (Effexor XR) Allergies Allergy/AdvReac Type Severity Reaction Status Date / Time Fish Containing Products Allergy Severe Dyspnea / Verified 07/10/25 21:46 SOB Iodinated Contrast Media Allergy Intermediate HIVES, RED Verified 07/10/25 21:46 FACE iodine Allergy Unknown Unknown Verified 07/10/25 21:46 Barbiturates Allergy Unknown Verified 07/10/25 21:46 bupivacaine Allergy Unknown Verified 07/10/25 21:46 diazepam (From Valium) Allergy Unknown Verified 07/10/25 21:46 latex Allergy Unknown Verified 07/10/25 21:46 menthol Allergy Unknown Verified 07/10/25 21:46 Sulfa (Sulfonamide Allergy Unknown Verified 07/10/25 21:46 Antibiotics) thiopental (From Pentothal) Allergy Unknown Verified 07/10/25 21:46 wool Allergy Unknown Verified 07/10/25 21:46 Review of Systems Review of Systems: All systems reviewed & are unremarkable except as noted in HPI and below PMFSH Past Medical History Medical History History of atrial fibrillation Failure to thrive CVA (cerebral vascular accident) Chronic anticoagulation Kidney stone Chronic anemia Chronic respiratory failure with hypoxia, on home oxygen therapy Bipolar disorder Gastroesophageal reflux disease Hyperlipidemia Hypertension Obstructive sleep apnea intolerant to CPAP Left tibial fracture Chronic hyponatremia Shingles Anxiety Depression Gastroparesis Diverticulitis Asthma Epilepsy no longer on medication Seasonal allergies Surgical History Surgical History History of left above knee amputation History of right shoulder replacement History of cholecystectomy History of left knee replacement History of hysterectomy History of open reduction and internal fixation (ORIF) procedure Left tibia and right ankle. History of appendectomy History of tonsillectomy Family History Family History Mother Suicide Depression Heart disease Hypertension Heart failure Sibling Suicide Father Diabetes mellitus Emphysema lung Social History Social History Social History: Surrogate medical decision maker: Martina Rodney, daughter. Code status: Full code. Smoking status: Never smoker Second hand tobacco smoke exposure: No Alcohol intake: former Substance use: never Substance use type: does not use Lack of Transportation: No Lack of Food: Never True Current Housing: I Have Housing Concerned About Future Housing: No Difficulty Paying Gas/Electric Bills: No Difficulty Paying for Meds: No Currently Unemployed: No Education: High School Diploma/GED Difficulty w/ Childcare or Family Care: No Living arrangements: nursing [place] Occupation/Education: retired Spiritual care concerns: No Agree to blood products: No Exam Narrative: General appearance: Well-developed, well-nourished Skin: Pale Head: Normocephalic, nontraumatic Eyes: Clear conjunctiva ENT: Oropharynx normal, ears normal, nose normal Neck: Supple, nontender Chest and respiratory: Airway patent, no respiratory distress, no accessory muscle use Heart: Regular rate/rhythm Abdomen: Soft, nontender, no organomegaly, quiet bowel sounds Vascular: Normal peripheral pulses, normal capillary refill. 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 VITAL SIGNS ARE STABLE PHYSICAL EXAMINATION ABOVE DIFFERENTIAL DIAGNOSIS ANEMIA, ELECTROLYTE IMBALANCE, DEHYDRATION, URINARY TRACT INFECTION BLOOD WORKUP TODAY INCLUDES CBC, CMP, COAGS SHOWED HEMOGLOBIN 9.4 COMPARED TO 7.0 8 DAYS AGO, SODIUM 128 MUCH BETTER COMPARED TO THE PREVIOUS RECORDS OTHERWISE WITHIN NORMAL LIMIT URINALYSIS SHOWED NO EVIDENCE OF INFECTION CHEST X-RAY SHOWED NO ACUTE ABNORMALITY WORKUP TODAY SHOWED NO ANEMIA, CHRONIC HYPONATREMIA, PATIENT IN THE ED IS ASYMPTOMATIC EXCEPT CHRONIC LOWER BACK PAIN OTHERWISE WITHIN NORMAL LIMIT. THE PT WAS DISCHARGED TO HOME.THE PT,S CONDITION UPON DISCHARGE WAS FAIR,EDUCATION WAS PROVIDED TO THE PT IN REFERENCE TO THE FINAL IMPRESSION,DISCHARGE STUDY RESULTS,TREATMENT,PROGNOSIS AND NEED FOR FOLLOW UP . Differential Diagnosis Differential Diagnosis: ABOVE Medical Records I have reviewed the following patient records and this information was taken into consideration when formulating the assessment and plan.: previous labs, previous ER visits and previous hospitalizations Lab Data 07/18/25 12:06 07/18/25 13:31 Labs: Lab Results 07/18/25 07/18/25 07/18/25 Range/Units 12: 13:31 15:44 WBC 7.5 (4.5-10.0) K/mm3 RBC 3.61 L (4.2-5.4) M/mm3 Hgb 9.4 L (12.0-15.0) g/dL Hct 29.3 L (37.0-47.0) % MCV 81.2 (80-100) fl MCH 26.0 (26-34) pg MCHC 32.1 (32-36) g/dl RDW 19.5 H (11.5-14.5) % Plt Count 333 (150-375) k/mm3 MPV 9.8 (7.4-10.4) fl Immature Gran % (Auto) 0.9 H (0-0.5) % Neut % (Auto) 57.3 (45.5-73.1) % Lymph % (Auto) 20.6 (18.3-44.2) % [place] % (Auto) 14.4 H (2.6-8.5) % Eos % (Auto) 6.0 H (0-4.4) % Baso % (Auto) 0.8 (0.2-1.2) % Lymph # (Auto) 1.54 (0.9-3.2) K/mm3 [place] # (Auto) 1.1 H (0.1-0.6) K/mm3 Eos # (Auto) 0.5 H (0-0.3) K/mm3 Baso # (Auto) 0.1 (0.0-0.1) K/mm3 Abs Immat Gran (auto) 0.07 H (0.00-0.031) K/mm3 Absolute Neuts (auto) 4.3 (1.3-6.7) K/mm3 Absolute Nucleated RBC 0.000 (0.0-0.012) K/mm3 Nucleated RBC % 0.0 (0.0-0.2) % Sodium 128 L (137-145) mmol/L Potassium 4.6 (3.4-5.0) mmol/L Chloride 91 L (98-107) mmol/L Carbon Dioxide 30 (22-30) mmol/L Anion Gap 7 (4-12) mmol/L BUN 16 (7-17) mg/dL Creatinine 0.50 L (0.7-1.0) mg/dL Estim Creat Clear Calc 85 ml/min Estimated GFR > 60 (59 - ) Glucose 111 H (65-110) mg/dL Calcium 9.2 (8.4-10.2) mg/dL Total Bilirubin 0.3 (0.2-1.3) mg/dL AST 28 (14-36) U/L ALT 21 (6-35) U/L Alkaline Phosphatase 75 (38-126) U/L Total Protein 6.9 (6.3-8.2) g/dL Albumin 3.9 (3.5-5.1) g/dL Urine Color Yellow (Yellow) Urine Appearance Clear (Clear) Urine pH 7.0 (5.0-9.0) Ur Specific [place] 1.006 (1.001-1.035) Urine Protein 2+ H (Negative) mg/dL Urine Glucose (UA) Negative (Negative) mg/dL Urine Ketones Negative (Negative) mg/dL Ur Blood (Man) Negative (Negative) Urine Nitrate Negative (Negative) Urine Bilirubin Negative (Negative) Urine Urobilinogen 0.2 (<2.0) mg/dL Leukocyte Esterase Rfl Negative (Negative) LEEANNE/UL Urine RBC 0-2 (0-2) /hpf Urine WBC 0-5 (0-3) /hpf Ur Squamous Epith Cells None seen (Few) /hpf Urine Bacteria None seen /hpf Urine Casts 0-2 Imaging Data Radiologist's impression: ITS Impressions Chest X-Ray 07/18/25 12:26 IMPRESSION: 1. No acute cardiopulmonary disease. Critical Care Time Critical Care Time Critical Care Time: No Discharge Plan Discharge Clinical Impression: Anemia, Chronic hyponatremia Patient Disposition: [place] Care Home/Asst Living Condition: Stable Instructions: Hyponatremia (ED), Anemia (ED) Additional Instructions: RETURN IF SYMPTOMS ARE WORSENING , CALL YOUR FAMILY PHYSICIAN FOR APPOINTMENT, TAKE TYLENOL NEEDED FOR ACHES AND PAIN, CONTINUE HOME MEDICATIONS. Patient Language: Swedish Prescriptions: No Action docusate sodium 100 mg Tablet 200 mg PO BID isosorbide mononitrate 30 mg tablet extended release 24 hr 30 mg PO DAILY lidocaine [Lidoderm] 5 % adhesive patch,medicated 2 patch topical HS Patient Comments: left shoulder Rx Instructions: leave on most painful area for up to 12 hrs magnesium hydroxide [Gentle Laxative (mag hydrox)] 400 mg/5 mL suspension 30 ml PO DAILY PRN (Reason: constipation) Xarelto 20 mg Tablet 20 mg PO DAILY@1700 Qty: 60 0RF oxycodone-acetaminophen 5-325 mg Tablet 1 tablet PO Q8H PRN (Reason: Pain Rated 7-10) Qty: 10 0RF irbesartan 150 mg Tablet 300 mg PO QAM Qty: 30 0RF primidone 50 mg tablet See Rx Instructions .ROUTE .COMPLEX Rx Instructions: 200 MG PO BID; spironolactone 25 mg tablet 25 mg PO DAILY buspirone 10 mg tablet 10 mg PO TID clonazepam 0.5 mg tablet 0.5 mg PO Q12H magnesium citrate Solution 300 ml PO DAILY PRN (Reason: constipation) famciclovir 250 mg tablet 250 mg PO Q12H atorvastatin [Lipitor] 10 mg tablet 10 mg PO HS sennosides-docusate sodium [Senna Plus] 8.6-50 mg tablet 2 tab-cap PO BID tizanidine 2 mg tablet 2 mg PO Q12H famotidine [Heartburn Relief (famotidine)] 10 mg Tablet 10 mg PO DAILY ipratropium-albuterol 0.5 mg-3 mg(2.5 mg base)/3 mL Solution For Nebulization 3 ml inhalation Q6HRT PRN (Reason: Wheezing) Qty: 30 0RF fluticasone propionate 50 mcg/actuation [place],Suspension 1 spray INTRANASAL DAILY ondansetron HCl 4 mg tablet 4 mg PO TID amlodipine 10 mg tablet 10 mg PO DAILY bisacodyl [Dulcolax (bisacodyl)] 5 mg Tablet,Delayed Release (Dr/Ec) 10 mg PO HS PRN (Reason: Constipation) memantine 5 mg tablet 5 mg PO BID guaifenesin [Mucinex] 1,200 mg Tablet Extended Release 12hr 1,200 mg PO Q12H pregabalin [Lyrica] 150 mg Capsule 150 mg PO BID Qty: 14 0RF polyethylene glycol 3350 17 gram/dose powder 17 g PO DAILY polyvinyl alcohol [Artificial Tears (polyvin alc)] 1.4 % drops 2 drp EACH EYE BID sodium chloride 1,000 mg tablet,soluble 1,000 mg PO BID furosemide 20 mg Tablet 20 mg PO BID 30 Days Qty: 60 0RF venlafaxine [Effexor XR] 37.5 mg capsule,extended release 24hr 37.5 mg PO DAILY hydralazine 10 mg tablet 25 mg PO Q8H Qty: 30 0RF Follow-up/Referrals: UNKNOWN,DOCTOR [Non-Staff]
--- OUTSIDE RECORDS SUMMARY | 2025-07-18 12:53 | XMS_ITS | Encounter Summary ---
Author Organization 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 Name Role Phone Hernando Velasquez MD Primary Care Provider [phone] Jose Manuel Gruber MD Unavailable Bernardo Edwards MD Primary Care Provider [phone] Hernando Velasquez MD Primary Care Provider [phone] Bernardo Edwards MD Primary Care Provider [phone] Bernardo Edwards MD Primary Care Provider [phone] Hernando Velasquez MD Primary Care Provider [phone] Encounter Details Date Type Department Care Team (Latest Contact Info) Description 07/22/2016 Orders Only [facility] CLINCONV ProviderLucille MD [address] [place] [id number] Social History Tobacco Use Types Packs/Day [...] Comments SCAN - LABS 07/23/2016 12:00 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 us Historical [...] documented as of this encounter Care Teams Oil Spraying Machine Operator Relationship Specialty Start Date End Date Hernando Velasquez MD PCP - General 12/23/18 06/13/19 Bernardo Edwards MD [address] [place] [address] PCP - General 07/05/20 07/06/20 Hernando Velasquez MD PCP - General 07/07/20 07/07/20 Bernardo Edwards MD [address] [place] [address] PCP - General 07/08/20 01/06/22 Bernardo Edwards MD [address] [place] [address] PCP - General 06/14/19 07/04/20 Hernando Velasquez MD PCP - General Internal Medicine 01/07/22 Jose Manuel Gruber MD Fellow Orthopedic Surgery 07/06/19 documented as of this encounter
--- OUTSIDE RECORDS SUMMARY | 2025-07-18 12:53 | XMS_ITS | Clinical Summary ---
Author Organization Formerly [facility] Address [address] [place] [address] Care Team Providers Care Creative Designer Name Role Phone Jose Manuel Gruber MD Unavailable Hernando Velasquez MD Primary Care Provider [phone] Allergies Active Allergy Reactions Criticality Noted Date Comments Barbiturates Unknown,Other (See comments) Medium 09/13/2006 Diazepam Unknown,Other (See comments) Low 09/13/2006 Fish Containing Products Anaphylaxis High 07/05/2019 Iodine Unknown,Other (See comments) Low 09/13/2006 Latex Unknown 06/28/2019 Menthol Hives,Itching,Rash Medium 07/08/2022 [place]-3 Fatty Acids Unknown,Other (See comments) Low 12/12/2010 [...] 04/15/2022 Assessment & Plan (07/08/2022 2:39 PM INTERLOCKING TOWER OPERATOR): I did recommend that the patient [...] 01/07/2022 Assessment & Plan (07/08/2022 2:39 PM INTERLOCKING TOWER OPERATOR): The patient does have some cough [...] 01/07/2022 Assessment & Plan (07/08/2022 2:39 PM INTERLOCKING TOWER OPERATOR): She was intolerant of CPAP therapy [...] 07/05/2020 Assessment & Plan (07/11/2020 6:58 AM INTERLOCKING TOWER OPERATOR): - Patient tested positive for COVID-19 on 06/21/20 at her group home ([facility] in [place], [place]). - She reports her only symptom [...] SNF. Assessment & Plan (07/07/2020 6:25 PM INTERLOCKING TOWER OPERATOR): - Pt states she was actually [...] protocol Assessment & Plan (07/06/2020 11:59 AM INTERLOCKING TOWER OPERATOR): - recommend getting records from SNF to establish exact date of first (+) COVID test. - pt likely has completed days of isolation. Assessment & Plan (07/06/2020 7:34 AM INTERLOCKING TOWER OPERATOR): - Per report, pt was tested [...] protocol Assessment & Plan (07/05/2020 5:40 PM INTERLOCKING TOWER OPERATOR): - Per report, pt was tested [...] 07/05/2020 Assessment & Plan (07/11/2020 6:57 AM INTERLOCKING TOWER OPERATOR): History of open periprosthetic tibia/fibula fracture [...] left lower extremity. - PM&R consulted. - Cashier Or Checker Stock Clerk placed stump hyperbaric technician / ampushield. Awaiting delivery of limb protector. - Patient not interested in prosthesis at this time. - PT/OT consults. - Plan for patient to return to her prior SNF when medically stable with ongoing PT/OT. - ID and Ortho following. Assessment & Plan (07/07/2020 6:27 PM INTERLOCKING TOWER OPERATOR): - History of open periprosthetic tibia/fibula [...] extremity Assessment & Plan (07/06/2020 3:07 PM INTERLOCKING TOWER OPERATOR): - Cellulitis vs subcutaneous infection vs [...] recs. Assessment & Plan (07/05/2020 6:03 PM INTERLOCKING TOWER OPERATOR): - Cellulitis vs subcutaneous infection vs [...] (07/08/2020): Added automatically from request for surgery [id number] Abnormal x-ray of extremity 07/20/2019 Acute exacerbation of chronic low back pain 06/26 Biliary colic 07/20/2019 Chronic lumbosacral pain 07/20/2019 Chronic respiratory failure 07/20/2019 Assessment & Plan (07/08/2020 4:27 PM INTERLOCKING TOWER OPERATOR): - Per pt 2/2 COPD. No sings of acute exacerbation. - Continue home flonase - Continue home albuterol prn - On home is on 4L O2 at baseline Assessment & Plan (07/07/2020 6:26 PM INTERLOCKING TOWER OPERATOR): - Per pt 2/2 COPD. No sings of acute exacerbation. - Continue home flonase - Continue home albuterol prn - On baseline 4L O2 Assessment & Plan (07/06/2020 7:33 AM INTERLOCKING TOWER OPERATOR): - Per pt 2/2 COPD. No sings of acute exacerbation. - Continue home flonase - Continue home albuterol prn - On baseline 4L O2 Assessment & Plan (07/05/2020 6:00 PM INTERLOCKING TOWER OPERATOR): - Per pt 2/2 COPD. No sings of acute exacerbation. - Continue home flonase - Continue home albuterol prn - On baseline 4L O2 Closed displaced bimalleolar fracture of right l ower leg 07/20/2019 Assessment & Plan (07/05/2020 6:01 PM INTERLOCKING TOWER OPERATOR): - As elsewhere Deep venous insufficiency [...] 06/28/2019 Assessment & Plan (07/08/2020 4:26 PM INTERLOCKING TOWER OPERATOR): - Follows with cardiology. - Continue home amlodipine, metoprolol, lasix, spironolactone. - Switched olmesartan to losartan as not on formulary. Assessment & Plan (07/07/2020 6:26 PM INTERLOCKING TOWER OPERATOR): - Follows with cardiology - Continue home amlodipine, metoprolol, lasix, spironolactone - Switched olmesartan to losartan as not on formulary Assessment & Plan (07/06/2020 3:04 PM INTERLOCKING TOWER OPERATOR): - Follows with cardiology - Continue home amlodipine, metoprolol, lasix, spironolactone - Switched olmesartan to losartan as not on formulary Assessment & Plan (07/05/2020 5:58 PM INTERLOCKING TOWER OPERATOR): - Follows with cardiology - Continue home amlodipine, metoprolol, lasix, spironolactone - Switch olmesartan to losartan as not on formulary Syncope due to sick sinus syndrome 06/28/2019 Open displaced comminuted fr acture of shaft of left tibia, type IIIA, IIIB, or IIIC 06/28/2019 Overview (06/28/2019): Added automatically from request for surgery [id number] Assessment & Plan (07/08/2020 4:27 PM INTERLOCKING TOWER OPERATOR): - See above. 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 After hours, the ID fellow development consultant can be reached at [phone]. Assessment & Plan (07/05/2020 5:59 PM INTERLOCKING TOWER OPERATOR): - L tibia and R ankle fractures s/p BRENNA in 06/2020 - Complicated by poor healing and multiple infections of L anterior leg wound - Pt of Dr. Shoemaker Hyponatremia 11/23/2017 Assessment & Plan (07/11/2020 6:59 AM INTERLOCKING TOWER OPERATOR): - Pt with history of hypoNa (per report, baseline mid 120- low 130s). - Na 126 on admission. No AMS. - TSH wnl. Cortisol 17. - Na stable. Assessment & Plan (07/07/2020 6:26 PM INTERLOCKING TOWER OPERATOR): - Pt with history of hypoNa (per report, baseline mid 120- low 130s). - Na 126 on admission. No AMS. - TSH wnl. Cortisol 17. - Diuretics were held and Na improved to 132. Restart when able. Assessment & Plan (07/06/2020 7:31 AM INTERLOCKING TOWER OPERATOR): - Pt with history of hypoNa [...] Cardiology [address] [place] [address] Adithya Dominguez MD 04/18/2025 11:30 AM CDT Office Visit [facility] Cardiology [address] [place] [id number] Vianca David NP Syncope due to sick sinus syndrome (HCC) (Primary Dx); Cardiac pacemaker in situ 04/18/2025 11:00 AM CDT Ancillary Procedure [facility] Cardiology [address] [place] [address] Atrial fibrillation, unspecified type (HCC) (Primary Dx); Cardiac pacemaker in situ; CHB (complete heart block) from Last 3 Months Immunizations Immunization Administration [...] CDT Respiratory Rate 18 07/08/2022 2:24 PM INTERLOCKING TOWER OPERATOR Oxygen Saturation 99% 04/18/2025 11: 20 AM [...] Breast Cancer Screening-Mammogram 02/19/2024 023 Covid-19 Vaccine (2024- 6 season) 2025 05/29/2021, 08/14/2020, 08/14/2020, Additional history exists Influenza Vaccine (#1) 2025 9, 05/04/2018, 04/26/2017, Additional history exists DTaP/Tdap/Td Vaccine (3 - Td or Tdap) 11/23/2033 11/24/2023, 06/28/2019 Pneumococcal vaccine 65+ Completed 018, 05/04/2018, 04/04/2015 Zoster Vaccine Completed 01/25/2019, 10/26, 11/15/2018 Hepatitis B Screening Completed 06/10/2019 Hepatitis C Screening Completed 06/10/2019 Medical Devices Implanted Type Area Marketing Assistant Retail Division Device Identifier Shelf Expiration Date Model / Serial / Lot Synthes 223.581 Lcp Combi [id number] 8 Hole Limit Contact Taper End Plate Bone - S0 - [id number] Implanted:Qty: 1 on 06/28/2019 by Lo Laura DO at [facility] Plate Left: Tibia Synthes I 223.581 / 0 / 0 Synthes 212.106 3.5mm 2.9mm 20mm Self Tap Lock Stardrive Conical Head T15 Full - S0 - [id number] Implanted:Qty: 1 on 06/28/2019 by Lo Laura DO at [facility] Screw Left: Tibia Synthes I 212.106 / 0 / 0 Synthes 212.108 3.5mm 2.9mm 24mm Self Tap Lock Stardrive Conical Head Pelvis T15 - S0 - [id number] Implanted:Qty: 1 on 06/28/2019 by Lo Laura DO at [facility] Screw Left: Tibia Synthes I 212.108 / 0 / 0 Synthes 212.109 3.5mm 2.9mm 26mm Self Tap Lock Stardrive Conical Head T15 Full - S0 - [id number] Implanted:Qty: 1 on 06/28/2019 by Lo Laura DO at [facility] Screw Left: Tibia Synthes I 212.109 / 0 / 0 Synthes 212.104 3.5mm 2.9mm 16mm Self Tap Lock Stardrive Conical Head T15 Full - S0 - [id number] Implanted:Qty: 2 on 06/28/2019 by Lo Laura DO at [facility] Screw Left: Tibia Synthes I 212.104 / 0 / 0 Synthes 212.107 3.5mm 2.9mm 22mm Self Tap Lock Stardrive Conical Head T15 Full - S0 - [id number] Implanted:Qty: 1 on 06/28/2019 by Lo Laura DO at [facility] Screw Left: Tibia Synthes I 212.107 / 0 / 0 Synthes 212.103 3.5mm 2.9mm 14mm Self Tap Lock Stardrive Conical Head T15 Full - [id number] Implanted:Qty: 2 on 06/30/2019 by Jacobo Shoemaker MD at [facility] Left: Tibia Synthes I 212.103 / / Synthes 212.109 3.5mm 2.9mm 26mm Self Tap Lock Stardrive Conical Head T15 Full - [id number] Implanted:Qty: 2 on 06/30/2019 by Jacobo Shoemaker MD at [facility] Left: Tibia Synthes I 212.109 / / Synthes 212.101 3.5mm 2.9mm 10mm Self Tap Lock Stardrive Conical Head T15 Full - [id number] Implanted:Qty: 1 on 06/30/2019 by Jacobo Shoemaker MD at [facility] Left: Tibia Synthes I 212.101 / / Synthes 212.107 3.5mm 2.9mm 22mm Self Tap Lock Stardrive Conical Head T15 Full - [id number] Implanted:Qty: 1 on 06/30/2019 by Jacobo Shoemaker MD at [facility] Left: Tibia Synthes I 212.107 / / Synthes 204.840 3.5mm 6mm 40mm 2.5mm Self Tap Small Hexagonal Socket Low Profile - [id number] Implanted:Qty: 1 on 06/30/2019 by Jacobo Shoemaker MD at [facility] Left: Tibia Synthes I 204.840 / / Synthes 204.832 3.5mm 6mm 32mm 2.5mm Self Tap Small Hexagonal Socket Low Profile - [id number] Implanted:Qty: 1 on 06/30/2019 by Jacobo Shoemaker MD at [facility] Left: Tibia Synthes I 204.832 / / Synthes 241.351 Lcp 12mm [id number] .7mm 5 Hole Collar 1/3 Tubular Plate Bone - [id number] Implanted:Qty: 1 on 06/30/2019 by Jacobo Shoemaker MD at [facility] Left: Tibia Synthes I 241.351 / / Synthes 241.351 Lcp 12mm [id number] .7mm 5 Hole Collar 1/3 Tubular Plate Bone - [id number] Implanted:Qty: 1 on 06/30/2019 by Jacobo Shoemaker MD at [facility] Right: Ankle Synthes I 241.351 / / Synthes 204.826 3.5mm 6mm 26mm 2.5mm Self Tap Small Hexagonal Socket Low Profile - [id number] Implanted:Qty: 1 on 06/30/2019 by Jacobo Shoemaker MD at [facility] Right: Ankle Synthes I 204.826 / / Synthes 212.102 3.5mm 2.9mm 12mm Self Tap Lock Stardrive Conical Head T15 Full - [id number] Implanted:Qty: 1 on 06/30/2019 by Jacobo Shoemaker MD at [facility] Right: Ankle Synthes I 212.102 / / Synthes 212.114 3.5mm 2.9mm 35mm Self Tap Lock Stardrive Conical Head T15 Full - [id number] Implanted:Qty: 1 on 06/30/2019 by Jacobo Shoemaker MD at [facility] Right: Ankle Synthes I 212.114 / / Synthes 223.641 Lcp Combi [id number] 14 Hole Limit Contact Taper End Plate Bone - [id number] Implanted:Qty: 1 on 06/30/2019 by Jacobo Shoemaker MD at [facility] Left: Tibia Synthes I 223.641 / / Synthes 204.824 3.5mm 6mm 24mm 2.5mm Self Tap Small Hexagonal Socket Low Profile - [id number] Implanted:Qty: 2 on 06/30/2019 by Jacobo Shoemaker MD at [facility] Left: Tibia Synthes I 204.824 / / Synthes 212.104 3.5mm 2.9mm 16mm Self Tap Lock Stardrive Conical Head T15 Full - [id number] Implanted:Qty: 2 on 06/30/2019 by Jacobo Shoemaker MD at [facility] Left: Tibia Synthes I 212.104 / / Explanted Type Area Marketing Assistant Retail Division Device Identifier Shelf Expiration Date Model / Serial / Lot Synthes 204.836 3.5mm 6mm 36mm 2.5mm Self Tap Small Hexagonal Socket Low Profile - [id number] Explanted:Qty: 1 on 06/30/2019 at [facility] Right: Ankle Synthes I 204.836 / / Synthes 212.117 3.5mm 2.9mm 40mm Self Tap Lock Stardrive Conical Head T15 Full - [id number] Explanted:Qty: 1 on 06/30/2019 at [facility] Right: Ankle Synthes I 212.117 / / Procedures Procedure Name Priority Date/Time Associated Diagnosis Comments DEVICE CHECK - IN OFFICE Routine 04/18/2025 10:50 AM CDT Cardiac pacemaker in situ CHB (complete heart block) SCREENING MAMMOGRAM BILATERAL W WILLIE Schedule Routine, Read Routine (OP Routine) 02/18/2023 1:39 PM CDT Screening mammogram, encounter for HEPATITIS PANEL, ACUTE Routine 06/10/2019 10:11 AM INTERLOCKING TOWER OPERATOR from Last 3 Months or Most [...] VS, regular (SR) 76 bpm. Vpaced only-0.7%.%. AM-PROJECT CONSTRUCTION ASSISTANT MANAGER 2.3%. VS only-97.1%. Medications;Lovenox, Lopressor. No programming changes made to device settings. See scanned report. Office pacemaker f/u due in 13 months. Carelink remote f/u . Carelink remote monitor ordered and is being shipped to [facility]. Luana Decker RN Adithya Dominguez MD CV [...] age 42, based on guidelines of the [employer] (ACR Practice Parameter for the Performance of Screening and Diagnostic Mammography) and [employer]. For women [...] * Hepatitis panel, acute (06/10/2019 10:11 AM INTERLOCKING TOWER OPERATOR) HepBsAg NONREACT NONREACTIVE [facility] Comment: Siemens CentaurXP using SUSU (chemiluminescent immunoassay) technology. NONREACTIVE: IgM antibodies to Hepatitis B Surface antigen not detected. REACTIVE: IgM antibodies to Hepatitis B Surface antigen detected. Reactive results will be confirmed by neutralization testing. HBsAb qn <3.10 mIU/mL [facility] Comment: Siemens CentaurXP using SUSU (chemiluminescent [...] detected. Hep A IgM NONREACT NONREACTIVE [facility] Comment: Siemens CentaurXP using SUSU (chemiluminescent immunoassay) technology. NONREACTIVE: IgM antibodies to Hepatitis A not detected. This does not exclude possibility of exposure to Hepatitis A or early acute infection. EQUIVOCAL:IgM antibodies to Hepatitis A may or may not be present. Suggest recollection and retest. REACTIVE: Antibodies to Hepatitis A detected. Hep C Ab NONREACT NONREACTIVE [facility] Comment: Siemens CentaurXP using SUSU (chemiluminescent [...] real-time PCR method. 06/10/2019 10:1 1 AM INTERLOCKING TOWER OPERATOR 06/10/2019 10:47 AM INTERLOCKING TOWER OPERATOR Narrative Resulting Agency Comment IN Destiny Pereira MD LAB MICROBIOLOGY - GENERAL ORDERABLES Final Result [address] [address], [facility] [phone] from Last 3 Months or Most Recently Relevant to Health Maintenance Insurance [facility] IDIL [facility] IDIL MEDICARE [facility] Address: [address] [address] [place] [address] Advance Directives For more information, please contact: [phone] Documents on File Type Date Recorded Patient Butter Liquefier Expl anation ADVANCE DIRECTIVE 07/14/2020 6:58 AM * Full Code (Latest Code Status on File) Date Activated Date Inactivated Comments 07/05/2020 4:11 PM 07/12/2020 7:15 PM * Full Code Date Activated Date Inactivated Comments 06/28/2019 11:55 PM 07/06/2019 8:59 PM Care Teams Creative Designer Relationship Specialty Start Date End Date Hernando Velasquez MD PCP - General Internal Medicine 01/07/22 Jose Manuel Gruber MD Fellow Orthopedic Surgery 07/06/19
--- OUTSIDE RECORDS SUMMARY | 2025-07-18 12:53 | XMS_ITS | Clinical Summary ---
Author Organization [facility] Address [address] [place] [address] Care Team Providers Care Grinder Name Role Phone Marcia Gaines MD Primary Care Provider +1- [phone] Allergies Active Allergy Reactions Criticality Noted Date [...] tartrate 25 MG tablet 1 Active NYSTATIN 999340 UNIT/GM powder 1 Active ondansetron 8 MG [...] (05/06/2021): Added automatically from request for surgery [id number] Infection 07/05/2020 Overview (05/06/2021): Last Assessment & [...] left lower extremity. - PM&R consulted. - Milk Powder Grinder placed stump slubber frame changer / ampushield. Awaiting delivery of limb protector. - Patient not interested in prosthesis at this time. - PT/OT consults. - Plan for patient to return to her prior SNF when medically stable with ongoing PT/OT. - ID and Ortho following. COVID-19 07/05/2020 Overview (05/06/2021): Last Assessment & Plan: - Patient tested positive for COVID-19 on 06/21/20 at her half-way ([facility] in [place], [place]). - She reports her only symptom [...] (05/06/2021): Added automatically from request for surgery [id number] Last Assessment & Plan: - See above. [...] Encounters Date Type Department Care Team Description 07/10/2025 3:04 PM HATCHERY HELPER - 07/10/2025 11:59 PM HATCHERY HELPER Hospital Encounter [facility] [place] [address] Keren Perdomo NP Discharge Disposition: Home or Self Care (Routine Discharge) 07/10/2025 Orders Only [facility] [place] [address] Keren Perdomo NP from Last 3 Months [...] Procedure Name Priority Date/Time Associated Diagnosis Comments COMPREHENSIVE METABOLIC PANEL Routine 07/10/2025 2:16 PM HATCHERY HELPER Folate-deficiency anemia Anemia, unspecified Hyperpotassemia Essential hypertension HC CBC AUTO W/AUTO DIFF Routine 07/10/2025 2:16 PM HATCHERY HELPER Folate-deficiency anemia Anemia, unspecified Hyperpotassemia Essential hypertension from Last 3 Months Results * (ABNORMAL) COMPREHENSIVE METABOLIC PANEL (07/10/2025 2:16 PM HATCHERY HELPER) GLUCOSE 105(H) 70 - 99 MG/DL 07/10/2025 3:46 PM HATCHERY HELPER [facility] BUN 15 7 - 18 MG/DL 07/10/2025 3:46 PM HATCHERY HELPER [facility] CREATININE S/P/B 0.41(L) 0.55 - 1.02 MG/DL 07/10/2025 3:46 PM HATCHERY HELPER [facility] SODIUM S/P/B 127(L) 136 - 145 MMOL/L 07/10/2025 3:46 PM [facility] POTASSIUM S/P/B 4.2 3.5 - 5.1 MMOL/L 07/10/2025 3:46 PM [facility] CHLORIDE S/P/B 91(L) 97 - 115 MMOL/L 07/10/2025 3:46 PM [facility] CO2 30.2 21 - 32 MMOL/L 07/10/2025 3:46 PM [facility] CALCIUM S/P/B 8.0(L) 8.5 - 10.1 MG/DL 07/10/2025 3:46 PM [facility] BILIRUBIN TOTAL S/P/B 0.2 0.2 - 1.2 MG/DL 07/10/2025 3:46 PM [facility] Comment: THIS ASSAY IS NOT RECOMMENDED FOR PATIENTS UNDERGOING TREATMENT WITH ELTROMBOPAG DUE TO THE POTENTIAL FOR FALSELY ELEVATED RESULTS. TOTAL PROTEIN S/P/B 5.6(L) 6.4 - 8.2 G/DL 07/10/2025 3:46 PM [facility] ALBUMIN S/P/B 2.9(L) 3.4 - 5.0 G/DL 07/10/2025 3:46 PM [facility] AST 14(L) 15 - 37 U/L 07/10/2025 3:46 PM [facility] ALT 21 14 - 55 U/L 07/10/2025 3:46 PM [facility] ALKALINE PHOSPHATASE S/P/B 74 50 - 136 U/L 07/10/2025 3:46 PM [facility] ANION GAP 5.8 2 - 10 MMOL/L 07/10/2025 3:46 PM [facility] BUN CREATININE RATIO 36.9(H) 6 - 26 07/10/2025 3:46 PM HATCHERY HELPER [facility] A/G RATIO 1.1 1.0 - 2.0 RATIO 07/10/2025 3:46 PM HATCHERY HELPER [facility] GFR ESTIMATE >90 >90 ML/MIN/1.7 3 M2 07/10/2025 3:46 PM [facility] Comment: NOTE: eGFR is not calculated for patients <18 years of age or gender unknown. This is an estimated GFR calculation using the new CKD EPI creatinine equation without race and so does not require a correction factor for race. This estimated GFR should not be used for calculating drug doses. BLOOD VENOUS BLOOD SPECIMEN / Unknown 07/10/2025 2:16 PM HATCHERY HELPER Keren Perdomo NP LABORATORY Final Re sult [facility] [address] [place] [address], * (ABNORMAL) CBC W/DIFF (07/10/2025 2:16 PM HATCHERY HELPER) WBC 6.20 4.5 - 11.0 x10'3/uL 07/10/2025 4:28 PM [facility] RBC 2.73(L) 4.20 - 5.40 x10'6/uL 07/10/2025 4:28 PM [facility] HGB 6.9(LL) 12.0 - 16.0 G/DL 07/10/2025 4:28 PM [facility] Comment: This result has been called to JENNIFER KUO by [id number] on 07/10/2025 16:27:55, and has been read back. HCT 21.3(L) 38.0 - 48.0 % 07/10/2025 4:28 PM HATCHERY HELPER [facility] MCV 78.0(L) 81.0 - 99.0 FL 07/10/2025 4:28 PM HATCHERY HELPER [facility] MCH 25.3(L) 27.0 - 31.0 PG 07/10/2025 4:28 PM [facility] MCHC 32.4 32.0 - 36.0 G/DL 07/10/2025 4:28 PM [facility] RDW 17.1(H) 11.5 - 14.5 % 07/10/2025 4:28 PM [facility] PLT 220 130 - 400 x10'3/uL 07/10/2025 4:28 PM [facility] MPV 10.5 9.3 - 12.2 FL 07/10/2025 4:28 PM [facility] DIFFERENTIAL TYPE AUTOMATED DIFFERENTIAL 07/10/2025 4:28 PM [facility] NEUTROPHILS % 65.6 % 07/10/2025 4:28 PM [facility] LYMPHOCYTES % 16.3 % 07/10/2025 4:28 PM [facility] MONOCYTES % 12.6 % 07/10/2025 4:28 PM [facility] EOSINOPHILS 4.4 % 07/10/2025 4:28 PM [facility] BASOPHILS 0.6 % 07/10/2025 4:28 PM [facility] IMMATURE GRANS % 0.5 % 07/10/20 4:28 PM [facility] ABS. NEUTROPHILS 4.07 1.80 - 7.70 x10'3/uL 07/10/2025 4:28 PM [facility] ABS. LYMPHOCYTES 1.01 1.00 - 4.80 x10'3/uL 07/10/2025 4:28 PM [facility] ABS. MONOCYTES 0.78 0.24 - 0.86 x10'3/uL 07/10/2025 4:28 PM HATCHERY HELPER [facility] ABS. EOSINOPHILS 0.27 0.04 - 0.36 x10'3/uL 07/10/2025 4:28 PM HATCHERY HELPER [facility] ABS. BASOPHILS 0.04 0.01 - 0.08 x10'3/uL 07/10/2025 4:28 PM HATCHERY HELPER [facility] ABS. IMMATURE GRANULOCYTES 0.03 0.00 - 0.49 x10'3/uL 07/10/2025 4:28 PM HATCHERY HELPER [facility] BLOOD VENOUS BLOOD SPECIMEN / Unknown 07/10/2025 2:16 PM HATCHERY HELPER Keren Angelina Perdomo NP LABORATORY Final Re sult Performing Organization Address City/State/[facility] Co de Phone Number [facility] [address] [place] [phone], from Last 3 Months Additional Health Concerns Infection Onset Date Last Indicated ESBL - Extended Spectrum Beta-lactamase 05/09/20 21 05/09/2021 Insurance MEDICAID MEDICARE Care Teams Grinder Relationship Specialty Start Date End Date Marcia Gaines MD PCP - General 08/18/16
[2025-07-18] MEDS: MORPHINE SULFATE (*CRX) 4 MG/ML INJ IV PUSH (13:18)
[2025-07-18] MEDS: ONDANSETRON INJ 4 MG/2 ML VIAL IV PUSH (13:18)
[2025-07-18 13:27] VITALS: BP 154/73; PULSE 73; RESP 14; O2SAT 99
[2025-07-18 13:55] LABS: Alanine Aminotransferase 21 U/L (6-35); Albumin Level 3.9 g/dL (3.5-5.1); Alkaline Phosphatase 75 U/L (38-126); Anion Gap 7 mmol/L (4-12); Aspartate Amino Transferase 28 U/L (14-36); Bilirubin,Total 0.3 mg/dL (0.2-1.3); Blood Urea Nitrogen 16 mg/dL (7-17); Calcium 9.2 mg/dL (8.4-10.2); Carbon Dioxide 30 mmol/L (22-30); Chloride 91 mmol/L (98-107); Estimated CRCL calculation 85 ml/min; Estimated Glomerular Filt Rate > 60; Glucose 111 mg/dL (65-110); Potassium 4.6 mmol/L (3.4-5.0); Sodium 128 mmol/L (137-145); Total Protein 6.9 g/dL (6.3-8.2)
[2025-07-18 15:13] VITALS: BP 135/63; PULSE 75; RESP 14
[2025-07-18 16:06] VITALS: BP 153/61; PULSE 75; RESP 18; O2SAT 100
[2025-07-18 16:06] LABS: Add Urine Microscopic? YES; Appearance Urine Clear (Clear); Glucose Urine UA Negative (Negative); Leukocyte Esterase Ur Negative LEU/UL (Negative); Nitrate Urine Negative (Negative); Non Pathogenic Casts 0-2; Specific Grav Ur 1.006 (1.001-1.035)
--- NOTE | 2025-07-18 17:18 | ED.GENADULT ---
HPI - General Adult General Chief complaint: Recheck/Abnormal Lab/Rx Stated complaint: abn labs Time Seen by Provider: 07/18/25 12:11 Source: patient and EMS Mode of arrival: EMS Related Data Home Medications ?Medication ?Instructions ?Recorded ?Confirmed ?Last Taken ?Type fluticasone propionate 50 1 spray intranasal DAILY 09/09/19 03/27/25 03/27/25 History mcg/actuation nasal spray,suspension docusate sodium 100 mg tablet 200 mg PO BID Constipation 05/31/20 03/27/25 03/27/25 History amlodipine 10 mg tablet 10 mg PO DAILY 04/23/24 03/27/25 03/27/25 History bisacodyl 5 mg tablet,delayed 10 mg PO HS PRN Constipation 04/23/24 03/27/25 Unknown History release (Dulcolax (bisacodyl)) guaifenesin 1,200 mg tablet, 1,200 mg PO Q12H 04/23/24 03/27/25 03/27/25 History extended release 12 hr (Mucinex) memantine 5 mg tablet 5 mg PO BID 04/23/24 03/27/25 03/27/25 History ondansetron HCl 4 mg tablet 4 mg PO TID 04/23/24 03/27/25 03/27/25 History isosorbide mononitrate 30 mg 30 mg PO DAILY 08/06/24 03/27/25 03/27/25 History tablet,extended release 24 hr lidocaine 5 % topical patch 2 patch topical HS 08/06/24 03/27/25 03/26/25 History (Lidoderm) magnesium hydroxide 400 mg/5 mL 30 ml PO DAILY PRN constipation 08/06/24 03/27/25 Unknown History oral suspension (Gentle Laxative (magnesium hydroxide)) atorvastatin 10 mg tablet (Lipitor) 10 mg PO HS 01/18/25 03/27/25 03/26/25 History buspirone 10 mg tablet 10 mg PO TID 01/18/25 03/27/25 03/27/25 History clonazepam 0.5 mg tablet 0.5 mg PO Q12H 01/18/25 03/27/25 03/27/25 History famciclovir 250 mg tablet 250 mg PO Q12H 01/18/25 03/27/25 03/27/25 History magnesium citrate 300 ml PO DAILY PRN constipation 01/18/25 03/27/25 Unknown History primidone 50 mg tablet See Rx Instructions .Route .COMPLEX 01/18/25 03/27/25 03/27/25 History sennosides 8.6 mg-docusate sodium 2 tab-cap PO BID 01/18/25 03/27/25 03/27/25 History 50 mg tablet (Senna Plus) spironolactone 25 mg tablet 25 mg PO DAILY 01/18/25 03/27/25 03/27/25 History famotidine 10 mg tablet (Heartburn 10 mg PO DAILY 02/08/25 03/27/25 03/27/25 History Relief (famotidine)) tizanidine 2 mg tablet 2 mg PO Q12H 02/08/25 03/27/25 03/27/25 History polyethylene glycol 3350 17 17 g PO DAILY 02/19/25 03/27/25 03/27/25 History gram/dose oral powder polyvinyl alcohol 1.4 % eye drops 2 drp EACH EYE BID 02/19/25 03/27/25 03/27/25 History (Artificial Tears (polyvinyl alcohol)) sodium chloride 1,000 mg soluble 1,000 mg PO BID 02/19/25 03/27/25 03/27/25 History tablet venlafaxine 37.5 mg 37.5 mg PO DAILY 03/27/25 03/27/25 03/27/25 History capsule,extended release 24 hr (Effexor XR) Allergies Allergy/AdvReac Type Severity Reaction Status Date / Time Fish Containing Products Allergy Severe Dyspnea / Verified 07/10/25 21:46 SOB Iodinated Contrast Media Allergy Intermediate HIVES, RED Verified 07/10/25 21:46 FACE iodine Allergy Unknown Unknown Verified 07/10/25 21:46 Barbiturates Allergy Unknown Verified 07/10/25 21:46 bupivacaine Allergy Unknown Verified 07/10/25 21:46 diazepam (From Valium) Allergy Unknown Verified 07/10/25 21:46 latex Allergy Unknown Verified 07/10/25 21:46 menthol Allergy Unknown Verified 07/10/25 21:46 Sulfa (Sulfonamide Allergy Unknown Verified 07/10/25 21:46 Antibiotics) thiopental (From Pentothal) Allergy Unknown Verified 07/10/25 21:46 wool Allergy Unknown Verified 07/10/25 21:46 PMFSH Past Medical History Medical History History of atrial fibrillation Failure to thrive CVA (cerebral vascular accident) Chronic anticoagulation Kidney stone Chronic anemia Chronic respiratory failure with hypoxia, on home oxygen therapy Bipolar disorder Gastroesophageal reflux disease Hyperlipidemia Hypertension Obstructive sleep apnea intolerant to CPAP Left tibial fracture Chronic hyponatremia Shingles Anxiety Depression Gastroparesis Diverticulitis Asthma Epilepsy no longer on medication Seasonal allergies Surgical History Surgical History History of left above knee amputation History of right shoulder replacement History of cholecystectomy History of left knee replacement History of hysterectomy History of open reduction and internal fixation (ORIF) procedure Left tibia and right ankle. History of appendectomy History of tonsillectomy Family History Family History Mother Suicide Depression Heart disease Hypertension Heart failure Sibling Suicide Father Diabetes mellitus Emphysema lung Social History Social History Social History: Surrogate medical decision maker: Martina Rodney, daughter. Code status: Full code. Smoking status: Never smoker Second hand tobacco smoke exposure: No Alcohol intake: former Substance use: never Substance use type: does not use Lack of Transportation: No Lack of Food: Never True Current Housing: I Have Housing Concerned About Future Housing: No Difficulty Paying Gas/Electric Bills: No Difficulty Paying for Meds: No Currently Unemployed: No Education: High School Diploma/GED Difficulty w/ Childcare or Family Care: No [place] arrangements[place] [facility] Occupation/Education: retired Spiritual care concerns: No Agree to blood products: No Course Vital Signs Vital signs: Vital Signs Temperature 36.7 C 07/18/25 11:25 Temperature 36.7 C 07/18/25 11:25 Pulse Rate 84 07/18/25 17:20 Respiratory Rate 20 07/18/25 17:20 Blood Pressure 165/75 H 07/18/25 17:20 Pulse Oximetry 97 07/18/25 17:20 [facility] Differential Diagnosis Differential Diagnosis: ABOVE Lab Data 07/18/25 12:06 07/18/25 13:31 Labs: Lab Results 12/24/25 12/24/25 12/24/25 Range/Units 12:06 13:31 15:44 WBC 7.5 (4.5-10.0) K/mm3 RBC 3.61 L (4.2-5.4) M/mm3 Hgb 9.4 L (12.0-15.0) g/dL Hct 29.3 L (37.0-47.0) % MCV 81.2 (80-100) fl MCH 26.0 (26-34) pg MCHC 32.1 (32-36) g/dl RDW 19.5 H (11.5-14.5) % Plt Count 333 (150-375) k/mm3 MPV 9.8 (7.4-10.4) fl Immature Gran % (Auto) 0.9 H (0-0.5) % Neut % (Auto) 57.3 (45.5-73.1) % Lymph % (Auto) 20.6 (18.3-44.2) % [place] % (Auto) 14.4 H (2.6-8.5) % Eos % (Auto) 6.0 H (0-4.4) % Baso % (Auto) 0.8 (0.2-1.2) % Lymph # (Auto) 1.54 (0.9-3.2) K/mm3 [place] # (Auto) 1.1 H (0.1-0.6) K/mm3 Eos # (Auto) 0.5 H (0-0.3) K/mm3 Baso # (Auto) 0.1 (0.0-0.1) K/mm3 Abs Immat Gran (auto) 0.07 H (0.00-0.031) K/mm3 Absolute Neuts (auto) 4.3 (1.3-6.7) K/mm3 Absolute Nucleated RBC 0.000 (0.0-0.012) K/mm3 Nucleated RBC % 0.0 (0.0-0.2) % Sodium 128 L (137-145) mmol/L Potassium 4.6 (3.4-5.0) mmol/L Chloride 91 L (98-107) mmol/L Carbon Dioxide 30 (22-30) mmol/L Anion Gap 7 (4-12) mmol/L BUN 16 (7-17) mg/dL Creatinine 0.50 L (0.7-1.0) mg/dL Estim Creat Clear Calc 85 ml/min Estimated GFR > 60 (59 - ) Glucose 111 H (65-110) mg/dL Calcium 9.2 (8.4-10.2) mg/dL Total Bilirubin 0.3 (0.2-1.3) mg/dL AST 28 (14-36) U/L ALT 21 (6-35) U/L Alkaline Phosphatase 75 (38-126) U/L Total Protein 6.9 (6.3-8.2) g/dL Albumin 3.9 (3.5-5.1) g/dL Urine Color Yellow (Yellow) Urine Appearance Clear (Clear) Urine pH 7.0 (5.0-9.0) Ur Specific [place] 1.006 (1.001-1.035) Urine Protein 2+ H (Negative) mg/dL Urine Glucose (UA) Negative (Negative) mg/dL Urine Ketones Negative (Negative) mg/dL Ur Blood (Man) Negative (Negative) Urine Nitrate Negative (Negative) Urine Bilirubin Negative (Negative) Urine Urobilinogen 0.2 (<2.0) mg/dL Leukocyte Esterase Rfl Negative (Negative) LEEANNE/UL Urine RBC 0-2 (0-2) /hpf Urine WBC 0-5 (0-3) /hpf Ur Squamous Epith Cells None seen (Few) /hpf Urine Bacteria None seen /hpf Urine Casts 0-2 Imaging Data Radiologist's impression: ITS Impressions Chest X-Ray 07/18/25 12:26 IMPRESSION: 1. No acute cardiopulmonary disease. Discharge Plan Discharge Clinical Impression: Anemia, Chronic hyponatremia Patient Disposition: NH Senior Living/Asst Living Condition: Stable Instructions: Hyponatremia (ED), Anemia (ED) Additional Instructions: RETURN IF SYMPTOMS ARE WORSENING , CALL YOUR FAMILY PHYSICIAN FOR APPOINTMENT, TAKE TYLENOL NEEDED FOR ACHES AND PAIN, CONTINUE HOME MEDICATIONS. Patient Language: Georgian Prescriptions: No Action docusate sodium 100 mg Tablet 200 mg PO BID isosorbide mononitrate 30 mg tablet extended release 24 hr 30 mg PO DAILY lidocaine [Lidoderm] 5 % adhesive patch,medicated 2 patch topical HS Patient Comments: left shoulder Rx Instructions: leave on most painful area for up to 12 hrs magnesium hydroxide [Gentle Laxative (mag hydrox)] 400 mg/5 mL suspension 30 ml PO DAILY PRN (Reason: constipation) Xarelto 20 mg Tablet 20 mg PO DAILY@1700 Qty: 60 0RF oxycodone-acetaminophen 5-325 mg Tablet 1 tablet PO Q8H PRN (Reason: Pain Rated 7-10) Qty: 10 0RF irbesartan 150 mg Tablet 300 mg PO QAM Qty: 30 0RF primidone 50 mg tablet See Rx Instructions .ROUTE .COMPLEX Rx Instructions: 200 MG PO BID; spironolactone 25 mg tablet 25 mg PO DAILY buspirone 10 mg tablet 10 mg PO TID clonazepam 0.5 mg tablet 0.5 mg PO Q12H magnesium citrate Solution 300 ml PO DAILY PRN (Reason: constipation) famciclovir 250 mg tablet 250 mg PO Q12H atorvastatin [Lipitor] 10 mg tablet 10 mg PO HS sennosides-docusate sodium [Senna Plus] 8.6-50 mg tablet 2 tab-cap PO BID tizanidine 2 mg tablet 2 mg PO Q12H famotidine [Heartburn Relief (famotidine)] 10 mg Tablet 10 mg PO DAILY ipratropium-albuterol 0.5 mg-3 mg(2.5 mg base)/3 mL Solution For Nebulization 3 ml inhalation Q6HRT PRN (Reason: Wheezing) Qty: 30 0RF fluticasone propionate 50 mcg/actuation [place],Suspension 1 spray INTRANASAL DAILY ondansetron HCl 4 mg tablet 4 mg PO TID amlodipine 10 mg tablet 10 mg PO DAILY bisacodyl [Dulcolax (bisacodyl)] 5 mg Tablet,Delayed Release (Dr/Ec) 10 mg PO HS PRN (Reason: Constipation) memantine 5 mg tablet 5 mg PO BID guaifenesin [Mucinex] 1,200 mg Tablet Extended Release 12hr 1,200 mg PO Q12H pregabalin [Lyrica] 150 mg Capsule 150 mg PO BID Qty: 14 0RF polyethylene glycol 3350 17 gram/dose powder 17 g PO DAILY polyvinyl alcohol [Artificial Tears (polyvin alc)] 1.4 % drops 2 drp EACH EYE BID sodium chloride 1,000 mg tablet,soluble 1,000 mg PO BID furosemide 20 mg Tablet 20 mg PO BID 30 Days Qty: 60 0RF venlafaxine [Effexor XR] 37.5 mg capsule,extended release 24hr 37.5 mg PO DAILY hydralazine 10 mg tablet 25 mg PO Q8H Qty: 30 0RF Follow-up/Referrals: UNKNOWN,DOCTOR [Non-Staff]
[2025-07-18 17:20] VITALS: BP 165/75; PULSE 84; RESP 20; O2SAT 97
[2025-07-18 18:17] VITALS: BP 140/99; PULSE 78; RESP 16; O2SAT 100
== END 2025-07-18 18:17 ==
PROVIDERS: Emergency Medicine; Emergency Provider Emergency Medicine
DX: D64.9 Anemia, unspecified (principal); E87.1 Hypo-osmolality and hyponatremia; R94.31 Abnormal electrocardiogram [ECG] [EKG]; Z86.73 Personal history of transient ischemic attack (TIA), and cerebral infarction without residual deficits; Z79.01 Long term (current) use of anticoagulants; Z87.442 Personal history of urinary calculi; J96.11 Chronic respiratory failure with hypoxia; Z99.81 Dependence on supplemental oxygen; F31.9 Bipolar disorder, unspecified; K21.9 Gastro-esophageal reflux disease without esophagitis; E78.5 Hyperlipidemia, unspecified; I10 Essential (primary) hypertension; G47.30 Sleep apnea, unspecified; F41.9 Anxiety disorder, unspecified; J45.909 Unspecified asthma, uncomplicated; G40.909 Epilepsy, unspecified, not intractable, without status epilepticus
CPT/HCPCS: 36415; 71046; 80053; 81001; 85025; 93005; 96374; 96375; 99284; J2270; J2405